=== PATIENT | male | born 1940 | race Caucasian/White ===

== ENCOUNTER 2017-05-20 06:12 | Day surgery (SDC) | payer MEDICARE, SELFPAY ==
[2017-05-20] VITALS (12 sets, daily range): BP systolic 153–203; BP diastolic 82–110; PULSE 75–97; RESP 16; TEMP 36.4–36.7; O2SAT 92–100; BMI 23.6
--- NOTE | 2017-05-20 | HYD_PTH ---
PATIENT: SHAISTA CLOUD LOC: [facility] [place] U#:[id number] AGE/SX: 76/M ROOM: RE05/20/[address]: Dr. Grey Gonsalez MD : [id number] BED: DIS: 05/20/2017 SPEC #: [id number] RECD: 05/20/17 14:32 STATUS: AMINTA REWan #: [id number] JAMES: 05/20/17 00:[address]: Grey Gonsalez DEPT: SURGICAL PATHOLOGY RECD BY: Santosh Rosenthal ENTERED: 05/20/17 14:32 SP TYPE: HYDROCELE OTHR DR: Dr. Butch Banegas MD Tissues: HYDROCELE Procedures: Surgery Specimen Level IV HEADER OPERATION: Left hydrocelectomy PRE-OP DIAGNOSIS: Left hydrocele TISSUE SUBMITTED: Left hydrocele sac MICROSCOPIC DIAGNOSIS Left hydrocele sac: Fragment of fibroconnective tissue, fibrovascular tissue and skeletal muscle tissue with numerous sperms and portion of benign epithelial cyst, favor spermatocele.. See comment. SJ:bogdan 05/23/17 COMMENT This case is discussed with Dr. Gonsalez on 05/24/13. Case has been reviewed in consultation with Dr. Mcpherson who concurs with the above diagnosis. IDC:[email or web address] MICROSCOPIC DESCRIPTION Slides are reviewed. GROSS DESCRIPTION Received in fixative is one container labeled with the patient's name and designated hydrocele sac. The specimen consists of two irregular fragments of pink-du soft tissue measuring in aggregate 5.5 x 2 x 0.7 cm. Serial sections do not reveal mass lesions. The specimen is sectioned and totally submitted in two cassettes. / HITESH:bogdan 05/20/17 TC:5 CPT: 65443
[2017-05-20 07:06] LABS: Bedside Glucose 130 mg/dL (70-110)
[2017-05-20] MEDS: Cefazolin 2 GM in 0.9% Normal Saline 100 ML IV (08:19)
--- NOTE | 2017-05-20 08:28 | PCM.DC.URO ---
Discharge Diet: Light diet - advance as tolerated Discharge Activity: Return to Normal Activity Call your doctor if your incision/area has: Continuous Slow Oozing, Sudden Increased Bleeding, Increased Pain/ Swelling, Increased Redness, Foul Smelling Discharge, Swelling at the incision site Call your doctor if you observe: Fever of 101 or Higher Suture Line Care: Avoid Pulling/Pushing, Avoid Pinching/Bending Instructions: Hydrocele Surgery (Hydrocelectomy) Allergies/Adverse Reactions: Allergies meloxicam [From Mobic] Allergy (Intermediate, Verified 03/03/17 16:09) itching pravastatin [From Pravachol] Adverse Reaction (Mild, Verified 03/03/17 16:09) myalgia cholestyramine Adverse Reaction (Verified 03/03/17 16:09) hypoglycemia Medications to take at Discharge hydrochlorothiazide 25 mg tablet 25 mg PO QDAY 03/03/17 losartan 100 mg tablet 100 mg PO QDAY 03/03/17 metformin 500 mg tablet 500 mg PO BID 03/03/17 multivitamin,hj-ybbf-keskgyez tablet 1 tab PO QDAY 03/03/17 tramadol 50 mg tablet 50 mg PO Q6H PRN 03/03/17 Insulin Glargine [Lantus (BKC)] 28 units SC QHS 05/13/17 Liraglutide [Victoza] 1.2 mg SQ DINNER 05/13/17 Cephalexin [Keflex] 500 mg PO TID #30 cap 05/20/17 Hydrocodone/Acetaminophen [[place] 5-325 Tablet] 1 ea PO Q4H PRN PRN 5 Days #14 tab 05/20/17 The following prescriptions were given: Hydrocodone/Acetaminophen [[place] 5-325 Tablet] 1 ea PO Q4H PRN PRN 5 Days #14 tab PRN Reason: Pain Cephalexin [Keflex] 500 mg PO TID #30 cap Primary Care Physician: Butch Banegas MD [Primary Care Provider] - Please Follow Up With: Grey Gonsalez MD When: Appt: May 26 at 8:30 am.
[2017-05-20] MEDS: Bupivacaine Mpf 0.5% 30 ML VIAL (08:36)
--- NOTE | 2017-05-20 09:01 | PCM.OPRPT ---
Report of Operation Date of Procedure: 05/20/17 Pre-Operative Diagnosis: Left hydrocele Post-Operative Diagnosis: Same Surgery/Procedure Performed:: Left hydrocelectomy Description of Surgical Findings:: 76-year-old male presents to the operating room for hydrocelectomy has a symptomatic large hydrocele on the left side. Patient taken back to the operating room at the smooth induction of anesthesia he was placed supine on the table the scrotum was shaved prepped and draped in usual sterile fashion I then infiltrated the scrotal skin with Marcaine and made an incision across the scrotum on the left side over the large hydrocele. Dissected through the skin subcuticular dartos layer until I reached the hydrocele sac and the hydrocele sac was then delivered from the scrotum dissected free from the scrotum used electrocautery. I then opened up the sac a lot of fluid was drained I then excised the hydrocele edges to the cord I then ran the suture along the edge of the hydrocele sac to control for bleeding on the left side and the right side once this was completed then I put the testicle back into the scrotum made a small incision up in the inguinal canal tunneled a drain, round NEENA drain 15. Left the drain in place I then closed the dartos layer with running chromic stitch and then closed the skin layer running 4-0 Monocryl fluffs and scrotal support was placed patient anesthetic reversed plan to see him next week to remove the drain should end the dictation Type of Anesthesia:: General Drains: NEENA - Admit VTE Documentation VTE Present on Admission: No VTE Mechan Device Prophylaxis: SCD's VTE Pharm Prophylaxis ordered?: No Reason prophylaxis not ordered:: Treatment Not Indicated
[2017-05-20] MEDS: HYDROcodone Bitartrate/Apap 5/325 Tablet PO (11:48)
== END 2017-05-20 12:22 | disposition home or self-care (01) ==
LOC: SDC 06:14 → AC 06:15
PROVIDERS: Family Provider Family Medicine; PCP Family Medicine; Visit Provider Urology
PROC: (CPT 55040; principal; 2017-05-20 08:20)
DX: N43.0 Encysted hydrocele (principal); N43.40 Spermatocele of epididymis, unspecified; R35.1 Nocturia; E11.9 Type 2 diabetes mellitus without complications; I10 Essential (primary) hypertension; Z87.442 Personal history of urinary calculi; Z79.4 Long term (current) use of insulin; Z79.891 Long term (current) use of opiate analgesic; Z79.899 Other long term (current) drug therapy
CPT/HCPCS: 55040; 82962; 88302; 88305; J3010; J7120; A4216; J2405

== ENCOUNTER 2020-04-11 13:45 | Outpatient (RCR) | payer MEDICARE, SELFPAY ==
[2017-05-20 06:50] VITALS: BMI 23.6
== END 2020-04-11 23:59 ==
LOC: IMMUN 13:45
PROVIDERS: PCP Family Medicine; Visit Provider Family Medicine
DX: Z23 Encounter for immunization (principal)
CPT/HCPCS: 0011A; 0012A; 91301

== ENCOUNTER 2020-12-31 07:13 | Inpatient (IN) | payer MEDICARE, SELFPAY ==
[2020-12-31] VITALS (17 sets, daily range): BP systolic 152–208; BP diastolic 78–100; PULSE 72–98; RESP 14–20; TEMP 36.4–37.1; O2SAT 93–98; BMI 25.4; BMI 24.8
--- NOTE | 2020-12-31 07:22 | EKG12_ITS ---
Test Reason : STROKE ALERT Blood Pressure : / mmHG Vent. Rate : 086 BPM Atrial Rate : 086 BPM P-R Int : 156 ms QRS Dur : 092 ms QT Int : 396 ms P-R-T Axes : 041 020 025 degrees QTc Int : 473 ms Normal sinus rhythm Normal ECG Confirmed by ADÁN STRONG, MAKENNA ([id number]), editor index AP NUNEZ ([id number]) on 01/01/2021 1:56:27 P M Referred By: Confirmed By:JOSHUA MCCAIN MD
--- NOTE | 2020-12-31 07:22 | CT_ITS ---
STUDY: CT HEAD STROKE PROTOCOL W/O CONTRAST INJECTION REASON FOR EXAM: Male, 80 years old. Neuro deficit, acute, stroke suspected RADIATION DOSAGE (If Supplied By Facility): CTDIvol = ( ) mGy, DLP = ( ) mGycm TECHNIQUE: Transaxial CT imaging of the brain was performed without administration of intravenous contrast material. Individualized dose optimization techniques were used for this CT. COMPARISON: No relevant priors. FINDINGS: Normal soft tissue structures. Normal calvarium. There is mild cerebral atrophy with widening of the extra-axial spaces and ventricular dilatation. There are areas of decreased attenuation within the white matter tracts of the supratentorial brain, consistent with microvascular disease changes. Normal basal ganglia and thalami. 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 Normal cerebellum. There is no intracranial hemorrhage. There are no findings of an acute ischemic infarction. Normal visualized paranasal sinuses. ASPECT score: 10 CT/STROKE Brain/Head without Cont IMPRESSION: Chronic involutional changes of the brain. N.B. : The above Results were Read Back by Indio Cosby MD to Dr. Angel Claros MD, and understanding confirmed on 12/31/2020 07:34:58 (ET). Electronically Signed: Indio Cosby MD at 7:37 EDT Tel , Service support ,
--- NOTE | 2020-12-31 07:23 | CT_ITS ---
STUDY: CTA HEAD AND NECK WITH CONTRAST REASON FOR EXAM: Male, 80 years old. Neuro deficit, acute, stroke suspected RADIATION DOSAGE (If Supplied By Facility): CTDIvol = ( ) mGy, DLP = ( ) mGycm TECHNIQUE: CT angiography was performed with a multi-detector CT scanner. Data acquisition was obtained from the skull base through the vertex following intravenous administration of IV 100mL Isovue-370. MIP images were reconstructed from the axial data set. Post-processing of the angiographic images was performed, with multiplanar reformation and 3D reconstruction. Individualized dose optimization techniques were used for this CT. COMPARISON: No relevant priors. FINDINGS: Normal bilateral petrous carotid arteries. Mild narrowing of the right cavernous carotid due to calcified atherosclerotic plaque. The left cavernous carotid artery demonstrate mild plaque without significant narrowing. Normal right A1 segments of the anterior cerebral artery. Normal left A1 segments of the anterior cerebral artery. Normal bilateral A2 segments of the anterior cerebral arteries. Mild narrowing of the right M1 segment and patent distally. Moderate short segment narrowing of the left M1 segment series 2 image 421 and patent distally. Focal short segment occlusion of the distal right vertebral artery. Normal basilar artery with a normal basilar bifurcation. Normal bilateral P1, P2 and visualized right P3 segments of the posterior cerebral arteries. Mild areas of narrowing the left P3 segment. There is no demonstrated aneurysm of the [place]. There is no demonstrated abnormality of the visualized brain. AORTIC ARCH: Normal visualized aortic arch. Normal origins of the brachiocephalic, left common carotid. Mild narrowing of the takeoff of the left subclavian artery. RIGHT CAROTID ARTERIES: Normal right common carotid artery (CCA). There is mild atherosclerotic plaque formation with mild narrowing of the right carotid bulb. Normal origin of the right internal carotid (ICA) artery without a hemodynamically significant stenosis. Normal visualized cervical portion of the right internal carotid artery. Normal origin of the right external carotid artery (ECA). LEFT CAROTID ARTERIES: Normal left common carotid artery (CCA). There is mild atherosclerotic plaque formation with mild narrowing of the left carotid bulb. Normal origin of the left internal carotid (ICA) artery without a hemodynamically significant stenosis. Normal visualized cervical portion of the left internal carotid artery. Normal origin of the left external carotid artery (ECA). VERTEBRAL ARTERIES: Normal proximal vertebral arteries. Focal short segment occlusion of the distal right vertebral artery within the intradural portion. There is scattered atherosclerotic plaque involving the distal left vertebral artery with mild luminal narrowing which remains patent. 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 Basilar artery is patent as well as the posterior circulation. Focal moderate narrowing of the left M1 segment. Bilateral carotid bulb calcification with mild narrowing bilaterally. N.B. : The above Results were Read Back by Indio Cosby MD to Dr. Angel Claros MD, and understanding confirmed on 12/31/2020 07:50:16 (ET). Electronically Signed: Indio Cosby MD at 8:08 EDT Tel , Service support ,
--- NOTE | 2020-12-31 07:24 | EDS_ITS ---
HPI History of Present Illness Chief Complaint: Neuro S/Sx Narrative Narrative: Patient presented to the emergency department at 0713, he went to bed about 930 last night, woke up at about 330 and noticed that he could not move his left arm and left leg very well. His brought him into the ED this morning. Stroke team was called soon as I found out about the patient. He has no headache vision changes or confusion. No prior history of stroke, he is not on anticoagulation or antiplatelet medication. [facility] Medical History (Updated 12/31/20 @ 07:[address] Angel Claros MD) Diabetes insipidus HTN (hypertension) Hydrocele in adult Recurrent inguinal hernia of right side without obstruction or gangrene Home Medications hydrochlorothiazide 25 mg tablet 25 mg PO QDAY 03/03/17 [History Last Taken Unknown] losartan 100 mg tablet 100 mg PO QDAY 03/03/17 [History Last Taken 05/20/17 05:00] metformin 500 mg tablet 500 mg PO BID 03/03/17 [History Last Taken Unknown] multivitamin,bj-rfwi-gzhnaynt 1 tab PO QDAY 03/03/17 [History Last Taken Unknown] tramadol 50 mg tablet 50 mg PO Q6H PRN 03/03/17 [History Last Taken Unknown] insulin glargine [Lantus (BKC)] 28 units SUBCUT QHS 05/13/17 [History Last Taken Unknown] liraglutide [Victoza] 1.2 mg SQ DINNER 05/13/17 [History Last Taken Unknown] Allergy/AdvReac Type Severity Reaction Status Date / Time meloxicam [From Mobic] Allergy Intermediate itching Verified 12/31/20 07:13 pravastatin [From Pravachol] AdvReac Mild myalgia Verified 12/31/20 07:13 cholestyramine AdvReac hypoglycemi Verified 12/31/20 07:13 a Family History (Updated 03/03/17 @ 16:07 by Ruma Maldonado) Mother Hypertension Cancer Father Heart disease Diabetes Surgical History S/P inguinal hernia repair S/P lumbar laminectomy Social History (Updated 03/03/17 @ 16:[address] Jonathan Davis MD) Smoking Status: Never smoker alcohol intake: current alcohol intake frequency: 0-2 drinks per day ROS ROS ED ROS Narrative Past medical history: Reviewed, includes hypertension, diabetes, no prior stroke or WI. Medications: Reviewed Social history: Noncontributory Review of systems: All systems negative except as indicated General: No fever Eyes: No visual changes ENT: No upper airway congestion, normal voice Neck: No neck pain Cardiovascular: No chest pain Respiratory: No shortness of breath or cough Gastrointestinal: No abdominal pain, nausea vomiting or diarrhea Genitourinary: No dysuria Musculoskeletal: Denies myalgias no difficulty with ambulation Skin: No rash Neurological: No memory loss, no confusion. Left-sided weakness as in HPI Psych: No recent behavioral changes Hematologic: No easy bleeding or easy bruising EXAM Physical Exam Narrative Exam Narrative: Physical exam General: Patient is comfortable in the cot. Head: Normocephalic, Atraumatic Eyes: Conjunctiva not pale ENT: Moist mucous membranes Neck: Supple, Nontender, No lymphadenopathy Cardiovascular: Regular rate, Regular rhythm Respiratory: No distress, CTA bilaterally Abdomen: Soft, Nontender, Nondistended Back: Nontender, Normal Inspection. Negative for: CVA tenderness Extremities: Nontender, No edema Skin: Normal color, No rash Neurological: Alert, he is oriented x3. He has slight left arm drift, some sensory deficits, and slight blunting of the left nasolabial fold. See NIH stroke scale below. Psychological: Normal affect Const Vital Signs: 12/31/20 07:14 12/31/20 07:17 12/31/20 07:24 Temperature 98.3 F Temperature Source Temporal Pulse Rate 96 97 Respiratory Rate 16 16 Blood Pressure 208/86 H 185/79 H Blood Pressure Mean 126 114 Pulse Ox 94 93 93 Oxygen Delivery Method Room Air Room Air Room Air 12/31/20 07:31 12/31/20 07:37 Temperature Temperature Source Pulse Rate 89 98 Respiratory Rate 18 20 H Blood Pressure 185/79 H 185/79 H Blood Pressure Mean 114 114 Pulse Ox 94 96 Oxygen Delivery Method Room Air Room Air STROKE Vital Signs/Narrative: Vital Signs Temp Pulse Resp BP Pulse Ox 12/31/20 07:37 98 20 H 185/79 H 96 12/31/20 07:31 89 18 185/79 H 94 12/31/20 07:24 93 12/31/20 07:17 97 16 185/79 H 93 12/31/20 07:14 98.3 F 96 16 208/86 H 94 NIHSS Initial: 1a Level of Consciousness: 0 1b LOC Questions (Score 2 if aphasic/stupor): 0 1c LOC Commands (Only score 1st attempt): 0 2 Best Gaze (If aphasic, use reflexive mvmts.): 0 3 Visual: 0 4 Facial Palsy: 1 5 Motor Arm Right (UN = amputation/fusion): 0 5 Motor Arm Left: 1 6 Motor Leg Right: 0 6 Motor Leg Left: 0 7 Limb ataxia (Only + if out of proportion): 0 8 Sensory (Aphasia/stupor=0 or 1, coma=2): 1 9 Best Language: 0 10 Dysarthria (mute, coma=2, intubated=UN): 0 11 Extinction and Inattention (only scored if +): 0 Total Score: 3 MDM MDM MDM Narrative Medical decision making narrative: This is a wake-up stroke, his deficits are quite minor at this time, he does not meet criteria for TPA due to onset of more than 4.5 hours. Patient will be admitted to the hospital for stroke work-up he will need antiplatelet therapy since he is not on aspirin or Plavix. Lab Data Labs: Laboratory Results - last 24 hr 12/31/20 12/31/20 12/31/20 07:16 07:20 07:20 WBC 9.1 RBC 4.47 L Hgb 13.5 Hct 40.0 MCV 89.5 MCH 30.2 MCHC 33.8 RDW Std Deviation 44.9 H RDW Coeff of Cait 13.7 Plt Count 336 MPV 10.2 Immature Gran % (Auto) 0.400 Neut % (Auto) 62.4 Lymph % (Auto) 22.6 [place] % (Auto) 11.5 H Eos % (Auto) 2.3 Baso % (Auto) 0.8 Absolute Neuts (auto) 5.7 Absolute Lymphs (auto) 2.06 Nucleated RBC % 0 PT 12.0 INR 0.9 APTT 29.5 Sodium Potassium Chloride Carbon Dioxide Anion Gap BUN Creatinine Estim Creat Clear Calc Est GFR (MDRD) Af Amer Est GFR (MDRD) Non-Af BUN/Creatinine Ratio Glucose Calcium Troponin I High Sens POC Glucose 153 H 12/31/20 07:20 WBC RBC Hgb Hct MCV MCH MCHC RDW Std Deviation RDW Coeff of Cait Plt Count MPV Immature Gran % (Auto) Neut % (Auto) Lymph % (Auto) [place] % (Auto) Eos % (Auto) Baso % (Auto) Absolute Neuts (auto) Absolute Lymphs (auto) Nucleated RBC % PT INR APTT Sodium 138 Potassium 3.5 Chloride 102 Carbon Dioxide 30.0 Anion Gap 6 BUN 25 H Creatinine 1.42 H Estim Creat Clear Calc 44.78 Est GFR (MDRD) Af Amer 62 Est GFR (MDRD) Non-Af 51 L BUN/Creatinine Ratio 17.6 Glucose 153 H Calcium 9.6 Troponin I High Sens 11 POC Glucose Radiography Diagnostic Testing: Clinical Impression(s) from Imaging Studies Brain CT 12/31/20 07:22 IMPRESSION: Chronic involutional changes of the brain. N.B. : The above Results were Read Back by Indio Cosby MD to Dr. Angel Claros MD, and understanding confirmed on 12/31/2020 07:34:58 (ET). Electronically Signed: Indio Cosby MD at 7:37 EDT Tel , Service support , ADDENDUM: 12/31/2044 IMPRESSION: Chronic involutional changes of the brain. N.B. : The above Results were Read Back by Indio Cosby MD to Dr. Angel Claros MD, and understanding confirmed on 12/31/2020 07:34:58 (ET). Electronically Signed: Indio Cosby MD at 7:37 EDT Tel , Service support , EKG Initial EKG: Comments: Sinus rhythm with a rate of 86. Normal GA and QTc intervals. No ischemic changes Interpreted by emergency doctor. Critical Care Time Critical Care Time: Yes Critical care time (excluding procedures): 30-74 minutes and - (Critical care time of 30 minutes. 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
[2020-12-31 07:30] LABS: Bedside Glucose 153 mg/dL (70-110)
[2020-12-31 07:32] LABS: Absolute Lymphocyte Count 2.06 X10^3/uL (0.83-4.51); Absolute Neutrophil Count 5.7 X10^3/uL (2.0-7.7); Basophil# 0.07 X10^3/uL; Basophil% 0.8 % (0-1); Eosinophil# 0.21 X10^3/uL; Eosinophils% 2.3 % (0-5); Hemoglobin 13.5 g/dL (13.0-16.5); Lymphocyte # 2.06 X10^3/ul (0.83-4.51); Lymphocyte % 22.6 % (19-41); Mean Corp Hgb Conc 33.8 g/dL (32-36); Mean Corpuscular Hgb 30.2 pg (27.0-32.0); Mean Corpuscular Volume 89.5 fL (80-94); Mean Platelet Vol. 10.2 fl (6.2-12.0); Monocyte# 1.05 X10^3/uL; Monocyte% 11.5 % (0-10); NRBC Flagged by Analyzer 0 % (0-5); Neutrophil % 62.4 % (47-70); Platelet Count 336 K/mm3 (150-450); RBC Distribution Width CV 13.7 % (11.6-14.6); RBC Distribution Width SD 44.9 fl (35.1-43.9); Red Blood Count 4.47 M/mm3 (4.6-6.2); White Blood Count 9.1 K/mm3 (4.4-11.0)
[2020-12-31 07:49] LABS: International Normalized Ratio 0.9
[2020-12-31 07:50] LABS: Partial Thromboplast Time 29.5 Seconds (24.1-36.2)
[2020-12-31 07:52] LABS: Anion Gap 6 (5-15); BUN 25 mg/dL (7-18); BUN/Creat Ratio 17.6 RATIO (10-20); Calcium,Total 9.6 mg/dL (8.5-10.1); Chloride 102 mmol/L (98-107); Creatinine, Serum 1.42 mg/dL (0.70-1.30); EST Glomerular Filtration Rate 51 mL/min (>60); Est Glom Filt Rate - Afr Amer 62 mL/min (>60); Estimated Creatinine Clearance 44.78 ml/min; Glucose 153 mg/dL (74-106); Potassium 3.5 mmol/L (3.5-5.1); Sodium Level 138 mmol/L (136-145); Troponin-I HS 11 pg/mL (3.0-78.0)
--- NOTE | 2020-12-31 08:13 | RAD_ITS ---
HISTORY: Neuro deficit, acute, stroke suspected. TECHNIQUE: XR Chest 1 View. # of images incl. paperwork: 1. COMPARISON: None. FINDINGS: CARDIOMEDIASTINAL STRUCTURES: Cardiac silhouette not enlarged. Mediastinal contour unremarkable with calcification of the aorta. LUNGS: Mild linear bibasilar opacities with elevation of the right hemidiaphragm. PLEURA: No pleural effusion or pneumothorax. OSSEOUS STRUCTURES: Degenerative change. RAD/Chest 1 View IMPRESSION: Very mild bibasilar atelectasis or scarring. at 0834 Reported and signed by: Sierra Adkins MD Electronically Signed: Sierra Adkins MD at 8:33 EDT Tel , Service support ,
--- NOTE | 2020-12-31 08:24 | HP.PCM.HOS_ITS ---
HPI - General General Date of Admission: 12/31/20 HPI Narrative SHAISTA CLOUD, is a 80 M witha H as outlined below who presents with a complaint of inability to move his left arm or left leg very well. His last known well was ~ 21:30 last night when he went to bed. He woke up this morning with the above symptoms. NIH was 3 on presentation in the ED. He woke up a ~ 3am today with these symptoms, but went back to sleep. He woke up again this morning with the same symptoms so he was brought in to the ED. He denied any slurred speech, headache, numbness or tingling. Per patient and his , he did have some tingling of his LUE during day before presentation, but he didnt think much of it. Review of systems was otherwise negative. On admission in the ED, vitals were BP of 175/84, NE of 77, RR of 14 and oxygen sats of 94% on room air. CBC and BMP were unremarkable, apart from Cr of 1.42, with unknown baseline. CT of the brain showed chronic involutional changes, with a right pontine round hypodensity measuring 6mm most consistent with old infarct, and CTA of the head and neck showed normal proximal vertebral arteries and a focal short segment occlusion of the distal right vertebral artery within the intradural portion with scattered atherosclerotic plaque involving the distal left vertebral artery with mild luminal narrowing which remains patent. He is being admitted to be managed for probable CVA. Telestroke consult was called. [facility] Medical History Diabetes insipidus HTN (hypertension) Hydrocele in adult Recurrent inguinal hernia of right side without obstruction or gangrene Home Medications metformin 500 mg tablet 1,000 mg PO BID 03/03/17 [History Last Taken 12/30/20] multivitamin,xo-eirb-jgbxkwgr 1 tab PO QDAY 03/03/17 [History Last Taken 12/30/20] amlodipine 10 mg PO DAILY 12/31/20 [History Last Taken 12/30/20] chlorthalidone 25 mg PO DAILY 12/31/20 [History Last Taken 12/30/20] insulin glargine [Basaglar KwikPen U-100 Insulin] 30 unit SUBCUT DAILY 12/31/20 [History Last Taken 12/31/20] valsartan 320 mg PO QHS 12/31/20 [History Last Taken 12/30/20] Allergy/AdvReac Type Severity Reaction Status Date / Time meloxicam [From Mobic] Allergy Intermediate itching Verified 12/31/20 07:13 pravastatin [From Pravachol] AdvReac Mild myalgia Verified 12/31/20 07:13 cholestyramine AdvReac hypoglycemi Verified 12/31/20 07:13 a Family History (Updated 03/03/17 @ 16:07 by Ruma Maldonado) Mother Hypertension Cancer Father Heart disease Diabetes Surgical History S/P inguinal hernia repair S/P lumbar laminectomy Social History (Updated 03/03/17 @ 16:[address] Jonathan Davis MD) Smoking Status: Never smoker alcohol intake: current alcohol intake frequency: 0-2 drinks per day ROS Constitutional Constitutional: Denies anorexia, change in weight, chills, fever(s), malaise or weakness Eyes Eyes: Denies change in vision ENT HEENT: Denies abnormal hearing, headache(s), nasal congestion or nasal discharge Cardiovascular Cardiovascular: Denies chest pain, dyspnea on exertion, edema, lightheadedness, orthopnea, palpitations, paroxysmal nocturnal dyspnea, rapid heart rate or syncope Respiratory/Chest Respiratory/Chest: Denies cough, dyspnea, productive cough, shortness of breath at rest or shortness of breath with exertion Gastrointestinal Gastrointestinal: Denies abdominal pain, constipation, dyspepsia, nausea or vomiting Genitourinary Genitourinary: Denies burning urination or dysuria Musculoskeletal Musculoskeletal: Denies arthralgias or joint pain Neurologic Neurologic: Denies confusion, dizziness, numbness, seizures or syncope Psychiatric Psychiatric: Denies anxiety Endocrine Endocrinology: Denies change in body appearance Hematologic/Lymphatic Hematologic/Lymphatic: Denies anemia Vital Signs Vital Signs Vital Signs: 12/31/20 07:14 12/31/20 07:17 12/31/20 07:24 Temperature 98.3 F Temperature Source Temporal Pulse Rate 96 97 Respiratory Rate 16 16 Blood Pressure 208/86 H 185/79 H Blood Pressure Mean 126 114 Pulse Ox 94 93 93 Oxygen Delivery Method Room Air Room Air Room Air 12/31/20 07:31 12/31/20 07:37 12/31/20 07:52 Temperature Temperature Source Pulse Rate 89 98 91 Respiratory Rate 18 20 H 16 Blood Pressure 185/79 H 185/79 H 186/86 H Blood Pressure Mean 114 114 119 Pulse Ox 94 96 93 Oxygen Delivery Method Room Air Room Air Room Air Weight Weight: 188 lb 0.869 oz Body Mass Index (BMI) 25.4 Physical Exam Const alert and oriented x3 General Appearance: cooperative HEENT normocephalic, hearing grossly normal bilaterally, moist oral mucous membranes and oropharynx normal Eyes PERRL and EOMs intact bilaterally Neck no lymphadenopathy Resp normal respiratory effort and clear to auscultation bilaterally Cardio regular rate, regular rhythm, S1 normal heart sound, S2 normal heart sound and no murmurs GI normal to inspection, nondistended, normoactive bowel sounds, soft to palpation, non-tender and non-distended Extremity normal to inspection Peripheral Pulses: Yes pulses 2+ throughout Skin no rashes or lesions noted Neuro CN's II-XII intact bilaterally Neuro Narrative: power in LUE is mildly reduced at 4/5; power in rest of extremities are 5/5. Normal sensation in all extremities. Sensorium / Orientation: awake and alert Psych affect normal Results Lab / Micro Data Result Diagrams: 12/31/20 07:20 12/31/20 07:20 Labs: Laboratory Results - last 24 hr 12/31/20 07:16: POC Glucose 153 H 12/31/20 07:20: WBC 9.1, RBC 4.47 L, Hgb 13.5, Hct 40.0, MCV 89.5, MCH 30.2, MCHC 33.8, RDW Std Deviation 44.9 H, RDW Coeff of Cait 13.7, Plt Count 336, MPV 10.2, Immature Gran % (Auto) 0.400, Neut % (Auto) 62.4, Lymph % (Auto) 22.6, [place] % (Auto) 11.5 H, Eos % (Auto) 2.3, Baso % (Auto) 0.8, Absolute Neuts (auto) 5.7, Absolute Lymphs (auto) 2.06, Nucleated RBC % 0 12/31/20 07:20: PT 12.0, INR 0.9, APTT 29.5 12/31/20 07:20: Sodium 138, Potassium 3.5, Chloride 102, Carbon Dioxide 30.0, Anion Gap 6, BUN 25 H, Creatinine 1.42 H, Estim Creat Clear Calc 44.78, Est GFR (MDRD) Af Amer 62, Est GFR (MDRD) Non-Af 51 L, BUN/Creatinine Ratio 17.6, Glucose 153 H, Calcium 9.6, Troponin I High Sens [address] 12/31/20 07:22 IMPRESSION: Chronic involutional changes of the brain. N.B. : The above Results were Read Back by Indio Cosby MD to Dr. Angel Claros MD, and understanding confirmed on 12/31/2020 07:34:58 (ET). Electronically Signed: Indio Cosby MD at 7:37 EDT Tel , Service support , ADDENDUM: 12/31/20 0744 IMPRESSION: Chronic involutional changes of the brain. N.B. : The above Results were Read Back by Indio Cosby MD to Dr. Angel Claros MD, and understanding confirmed on 12/31/2020 07:34:58 (ET). Electronically Signed: Indio Cosby MD at 7:37 EDT Tel , Service support , Head/Neck CTA 12/31/20 07:23 IMPRESSION: Focal short segment occlusion of the distal intradural portion of the right vertebral artery. Basilar artery is patent as well as the posterior circulation. Focal moderate narrowing of the left M1 segment. Bilateral carotid bulb calcification with mild narrowing bilaterally. N.B. : The above Results were Read Back by Indio Cosby MD to Dr. Angel Claros MD, and understanding confirmed on 12/31/2020 07:50:16 (ET). 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 Basilar artery is patent as well as the posterior circulation. Focal moderate narrowing of the left M1 segment. Bilateral carotid bulb calcification with mild narrowing bilaterally. N.B. : The above Results were Read Back by Indio Cosby MD to Dr. Angel Claros MD, and understanding confirmed on 12/31/2020 07:50:16 (ET). Electronically Signed: Indio Cosby MD at 8:08 EDT Tel , Service support , Assessment & Plan Assessment/Plan (1) Acute stroke due to ischemia: PLAN: #Probable acute CVA * admit to PCU * out of window for tPA administration * give aspirin and plavix * telestroke neurology consulted; recommends dual antiplatelet therapy for 60 days. * check lipid panel and A1C * CT of the brain was negative for any evidence of stroke, and showed a right pontine round hypodensity measuring 6mm consistent with old infarct * CTA head and neck showed focal shrot segment occlusion of the distal intradural portion of the right vertebral artery, with basilar artery patent and patent posterior circulation, with focal moderate narrowing of the left M1 segment, and bilaeral carotid bulb calcification with mild narrowing bilaterally. * PT/OT consult * fall precautions * for MRI of the brain. * 2D echo showed EF of 65%, and moderate mitral annular calcifications and bubble study negative for right to left interatrial shunt, and stage 1 diastolic dysfunction. * allow for permissive hypertension, so BP meds on hold * #Hypertension; BP meds on hold to allow for permissive hypertension #Type 2 diabetes mellitus * metformin on hold. * on lantus 28 units. * ISS. Accuchecks ACHS. * DVT prophylaxis: SCDs Code status: full code * Patient and counseled extensively about different types of CODE STATUS including full code, DNR CCA and DNR CCA. Patient elects to be full code. * Total [id number]-[id number] time 16 minutes. Charges/Coding Visit Charges OBSV E&M: 07173 Initial observation care L3 Procedures Hospitalists Procedures: 37746 Advncd Care Plan 30 Min
--- NOTE | 2020-12-31 09:41 | PCS.PANDOC ---
PANDEMIC DOCUMENTATION INITIATED: Date: 10/27/2020 Time: 190
--- NOTE | 2020-12-31 09:59 | MRI_ITS ---
We are attempting to reach an attending provider to discuss findings. An addendum with communication details will be sent when the communication is complete. STUDY: MRI BRAIN WITHOUT CONTRAST REASON FOR EXAM: Male, 80 years old. cva, L upper extremity weakness TECHNIQUE: Standardized multiplanar fat and water weighted pulse sequences were obtained. COMPARISON: CT of the brain 12/31/2020 FINDINGS: Mild atrophy and periventricular white matter ischemic changes without mass effect or restricted diffusion. Vertebrobasilar documentation suggestive of systemic hypertension There is gliosis noted within the right basal ganglia and deep white matter tracts in the right frontal parietal region demonstrating restricted diffusion consistent with acute ischemic changes. Normal thalami. There is no extra-axial fluid accumulation. Old right pontine infarct Normal flow voids within the major intracranial circulation suggesting patency by spin echo criteria. Partial empty sella deformity likely of no significance. Normal, infundibular stalk, optic chiasm and hypothalamus. Normal tectal plate and pineal gland. Normal midbrain, and medulla. Normal cerebellum. Normal basal cisterns. Normal bilateral temporal bones. Normal bilateral internal auditory canals. Postsurgical changes of the orbits.. Normal visualized paranasal sinuses. Normal calvarium and skull base. Normal visualized soft tissue structures. Normal visualized upper cervical spine. MRI/Brain without Contrast IMPRESSION: Mild atrophy and periventricular white matter ischemic changes. 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
--- NOTE | 2020-12-31 10:02 | ECHOCS_ITS ---
Reason For Study: TIA/CVA Procedure This was a 2D Doppler, Color Flow transthoracic echocardiogram. The study was technically difficult. Contrast injection was performed. Bubble study performed. Exam performed portable in patient room. Left Ventricle Normal LV size. Mild concentric left ventricular hypertrophy. Sigmoid septum. Left ventricular systolic function is normal. The estimated ejection fraction is 65 %. Stage 1 diastolic dysfunction. No regional wall motion abnormalities noted. Right Ventricle Normal RV size. Normal systolic function. Atria Normal left atrium. Normal right atrium. Bubble contrast study negative for right to left interatrial shunt. Mitral Valve There is moderate mitral annular calcification. Tricuspid Valve Normal tricuspid valve. Mild (1+) tricuspid valve insufficiency. Pulmonary artery systolic pressure is 36 mmHg. Aortic Valve Trisinus/trileaflet aortic valve. Mild focal aortic valve calcification. Pulmonic Valve The pulmonic valve is not well visualized. Great Vessels Normal aortic root. The pulmonary artery is normal size. Normal inferior vena cava. Pericardium/Pleural No pericardial effusion. Medication Diluted definity 2ml given slow IV push to enhance endocardial definition. Performed a rapid injection of agitated mix of 9 cc saline and 1cc air to assess for atrial septal defect. MMode/2D Measurements & Calculations LVIDd: 4.1 cm IVSd: 1.6 cm Ao root diam: 3.4 cm LVIDs: 2.2 cm LVPWd: 1.2 cm LA dimension: 3.6 cm FS: 46.0 % LAV(MOD-bp): 53.1 ml LA A4 area: 17.3 cm2 RA A4 area: 14.4 cm2 LAV(MOD-bp) Indexed: 25.9 ml/m2 LAV(MOD-sp2): 57.6 ml LAV(MOD-sp4): 46.9 ml Time Measurements MV dec time: 0.42 sec Doppler Measurements & Calculations MV E max joce: 110.2 cm/sec Lat Peak E' Joce: 5.4 cm/sec Med Peak E' Joce: 4.3 cm/sec MV A max joce: 179.2 cm/sec E/E' lat: 20.3 E/E' med: 25.9 MV E/A: 0.61 MV V2 max: 177.2 cm/sec MV P1/2t max joce: 113.6 cm/sec Ao V2 max: 157.9 cm/sec MV max P.6 mmHg MV P1/2t: 124.1 msec Ao max P.0 mmHg MV V2 mean: 97.4 cm/sec MV dec slope: 268.2 cm/sec2 MV mean P.5 mmHg MV V2 VTI: 40.9 cm MVA(P1/2t): 1.8 cm2 LV V1 max: 126.6 cm/sec PA V2 max: 105.9 cm/sec TR max joce: 280.7 cm/sec LV V1 max P.4 mmHg TR max P.5 mmHg ECHO/Echo Complete W/ Contrast Interpretation Summary Normal LV size. Left ventricular systolic function is normal. The estimated ejection fraction is 65 %. There is moderate mitral annular calcification. Bubble contrast study negative for right to left interatrial shunt. Stage 1 diastolic dysfunction. Sigmoid septum. Contrast injection was performed. Ordering Physician: Jessica Meyer Referring Physician: Butch Banegas Performed By: Yaakov Hood RCS
[2020-12-31] MEDS: Clopidogrel Bisulfate 75 MG Tablet PO (10:37)
[2020-12-31 11:10] LABS: Troponin-I HS 12 pg/mL (3.0-78.0)
[2020-12-31 11:51] LABS: Bedside Glucose 146 mg/dL (70-110)
[2020-12-31 16:16] LABS: Bedside Glucose 101 mg/dL (70-110)
[2020-12-31 21:01] LABS: Bedside Glucose 143 mg/dL (70-110)
[2021-01-01] VITALS (10 sets, daily range): BP systolic 169–193; BP diastolic 75–124; PULSE 62–105; RESP 16–18; TEMP 36.3–36.9; O2SAT 93–97; BMI 24.8
[2021-01-01] MEDS: Enoxaparin 40 MG/0.4 ML Syringe SC (05:07)
[2021-01-01 06:08] LABS: Absolute Lymphocyte Count 2.35 X10^3/uL (0.83-4.51); Absolute Neutrophil Count 5.5 X10^3/uL (2.0-7.7); Basophil# 0.05 X10^3/uL; Basophil% 0.5 % (0-1); Eosinophil# 0.22 X10^3/uL; Eosinophils% 2.4 % (0-5); Hematocrit 40.1 % (40-54); Hemoglobin 13.6 g/dL (13.0-16.5); Lymphocyte # 2.35 X10^3/ul (0.83-4.51); Lymphocyte % 25.5 % (19-41); Mean Corp Hgb Conc 33.9 g/dL (32-36); Mean Corpuscular Hgb 30.4 pg (27.0-32.0); Mean Corpuscular Volume 89.5 fL (80-94); Mean Platelet Vol. 10.4 fl (6.2-12.0); Monocyte# 1.13 X10^3/uL; Monocyte% 12.3 % (0-10); NRBC Flagged by Analyzer 0 % (0-5); Neutrophil # 5.45 X10^3/uL (2.7-7.7); Neutrophil % 59.1 % (47-70); Platelet Count 312 K/mm3 (150-450); RBC Distribution Width CV 13.9 % (11.6-14.6); RBC Distribution Width SD 45.3 fl (35.1-43.9); Red Blood Count 4.48 M/mm3 (4.6-6.2); White Blood Count 9.2 K/mm3 (4.4-11.0)
[2021-01-01 06:50] LABS: Anion Gap 9 (5-15); BUN 20 mg/dL (7-18); BUN/Creat Ratio 16.4 RATIO (10-20); Calcium,Total 9.2 mg/dL (8.5-10.1); Chloride 100 mmol/L (98-107); Cholesterol 221 mg/dL (200); Creatinine, Serum 1.22 mg/dL (0.70-1.30); EST Glomerular Filtration Rate 61 mL/min (>60); Est Glom Filt Rate - Afr Amer 73 mL/min (>60); Estimated Creatinine Clearance 52.12 ml/min; Glucose 103 mg/dL (74-106); High Density Lipoprotein 36 mg/dL; Potassium 3.6 mmol/L (3.5-5.1); Sodium Level 140 mmol/L (136-145); Triglycerides 175 mg/dL; Very Low Density Lipoprotein 35 mg/dL (5-40)
[2021-01-01 06:51] LABS: Bedside Glucose 121 mg/dL (70-110)
[2021-01-01] MEDS: Clopidogrel Bisulfate 75 MG Tablet PO (08:46)
[2021-01-01] MEDS: Multivitamins,Ther W-Minerals Tablet 1 TABLET PO (08:46)
[2021-01-01] MEDS: Aspirin 81 MG TAB.CHEW PO (08:46)
--- NOTE | 2021-01-01 09:05 | TELEMED_ITS ---
[facility] Tele[facility] has confirmed receipt of a request for visit. This document confirms receipt of the order initiating the consult. To find the results of the consultation, please view the patient's reports for the scanned Telemed Consult.
--- NOTE | 2021-01-01 09:23 | CASEMGMT ---
SW completed a PHQ 9 with patient as he may have had a Stroke or TIA. He scored a 0 which indicates no depression. He denied any needs for counseling resources. Liza Romero HEALTH INFORMATION CLERK [facility]
[2021-01-01 09:43] LABS: Hemoglobin A1c 6.7 % (3.8-5.6)
[2021-01-01] MEDS: Insulin Lispro 100 UNIT/ML INSULN.PEN SC ×3 (11:56→21:24)
[2021-01-01] MEDS: Losartan Potassium 100 MG Tablet PO (11:58)
[2021-01-01] MEDS: amLODIPine 10 MG Tablet PO (11:58)
[2021-01-01] MEDS: Chlorthalidone 50 MG Tablet 25 MG PO (11:58)
--- NOTE | 2021-01-01 13:12 | DS.PCM_ITS ---
Providers Date of Admission: 12/31/20 Primary Care Physician: Dr. Butch Banegas MD Reason For Visit: PROBABLE CVA Diagnosis Discharge Diagnosis (1) Acute stroke due to ischemia: Status: Acute Code(s): I63.9 - Cerebral infarction, unspecified Medications at Discharge Home Medications metformin 500 mg tablet 1,000 mg PO BID 03/03/17 multivitamin,wu-nnse-emczigqk 1 tab PO QDAY 03/03/17 amlodipine 10 mg PO DAILY 12/31/20 chlorthalidone 25 mg PO DAILY 12/31/20 insulin glargine [Basaglar KwikPen U-100 Insulin] 30 unit SUBCUT DAILY 12/31/20 valsartan 320 mg PO QHS 12/31/20 Hospital Course Operations None Procedures 2-D Echocardiogram Summary of Care Provided Minutes Spent on Discharge: 40 Hospital Course: SHAISTA CLOUD, is a 80 M witha PMH as outlined below who presents with a complaint of inability to move his left arm or left leg very well. His last known well was ~ 21:30 the night before admission when he went to bed. He woke up this morning with the above symptoms. NIH was 3 on presentation in the ED. He woke up a ~ 3am today with these symptoms, but went back to sleep. He woke up again this morning with the same symptoms so he was brought in to the ED. He denied any slurred speech, headache, numbness or tingling. Per patient and his , he did have some tingling of his LUE during day before presentation, but he didnt think much of it. Review of systems was otherwise negative. On admission in the ED, vitals were BP of 175/84, FL of 77, RR of 14 and oxygen sats of 94% on room air. CBC and BMP were unremarkable, apart from Cr of 1.42, with unknown baseline. CT of the brain showed chronic involutional changes, with a right pontine round hypodensity measuring 6mm most consistent with old infarct, and CTA of the head and neck showed normal proximal vertebral arteries and a focal short segment occlusion of the distal right vertebral artery within the intradural portion with scattered atherosclerotic plaque involving the distal left vertebral artery with mild luminal narrowing which remains patent. He was admitted to be managed for probable CVA. Telestroke consult was called. He was started on aspirin and plavix as well as statin. He had an MRI of the brain which showed evidence of acute ischemic changes in the right basal ganglia, indicative of a stroke. 2D echo showed normal LV size adn mild concentric LV hypertrophy, with sigmoid septum and normal LV systolic function, and stage 1 diastolic dysfunction, as well as EF of 65%, with negative bubble study. [facility] neurology was consulted, and plan was for patient to be on aspirin and plavix for 21 days, then to continue with aspirin 81mg only. Patient said he couldnt take statins due to a history of myalgia whilst taking statins. He was therefore started on ezetimibe. He wasa reviewed by physical therapy. He remained stable and was discharged home on 01/01/2021. He is to follow up with his PCP and neurology. 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 HE was advised by neurology to abstain from driving for the next one month, and is to follow up with an assessment at [facility] to determine if he can still drive. Weight / BMI Weight Weight: 183 lb 3.266 oz Body Mass Index (BMI) 24.8 ABG / Lab / Microbiology Data Result Diagrams: 01/01/21 05:25 01/01/21 05:25 Laboratory: Laboratory Results - last 24 hr 12/31/20 16:13: POC Glucose 101 12/31/20 20:58: POC Glucose 143 H 01/01/21 05:25: WBC 9.2, RBC 4.48 L, Hgb 13.6, Hct 40.1, MCV 89.5, MCH 30.4, M CHC 33.9, RDW Std Deviation 45.3 H, RDW Coeff of Cait 13.9, Plt Count 312, MPV 10.4, Immature Gran % (Auto) 0.200, Neut % (Auto) 59.1, Lymph % (Auto) 25.5, [place] % (Auto) 12.3 H, Eos % (Auto) 2.4, Baso % (Auto) 0.5, Absolute Neuts (auto) 5.5, Absolute Lymphs (auto) 2.35, Nucleated RBC % 0 01/01/21 05:25: Sodium 140, Potassium 3.6, Chloride 100, Carbon Dioxide 31.0, Anion Gap 9, BUN 20 H, Creatinine 1.22, Estim Creat Clear Calc 52.12, Est GFR (MDRD) Af Amer 73, Est GFR (MDRD) Non-Af 61, BUN/Creatinine Ratio 16.4, Glucose 103, Calcium 9.2, Triglycerides 175, Cholesterol 221 H, LDL Cholesterol 150 H, VLDL Cholesterol 35, HDL Cholesterol 36 L 01/01/21 05:25: Hemoglobin A1c 6.7 H 01/01/21 06:46: POC Glucose 121 H Radiography Diagnostic Testing: Radiology Impression Brain MRI 12/31/20 09:59 IMPRESSION: Mild atrophy and periventricular white matter ischemic changes. 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 : The above Results were Read Back by Butch Cheema MD to Rn Solis Horowitz RN, and understanding confirmed on 12/31/2020 16:49:32 (ET). Electronically Signed: Butch Cheema MD at 16:36 EDT , Service support , Discharge Plan Admission Admit Date/Time: 12/31/20 08:31 Attending Provider: Jessica Meyer Primary Care Provider: Butch Banegas Discharge Orders/Prescriptions Prescriptions: No Action metformin 500 mg tablet 1,000 mg PO BID RF: 0 multivitamin,tw-uxew-odjbbzmn tablet tablet 1 tab PO QDAY RF: 0 amlodipine 5 mg tablet 10 mg PO DAILY RF: 0 valsartan 320 mg tablet 320 mg PO QHS RF: 0 Basaglar KwikPen U-100 Insulin 100 unit/mL (3 mL) insulin pen 30 unit SUBCUT DAILY RF: 0 chlorthalidone 25 mg tablet 25 mg PO DAILY RF: 0 Referrals / Follow Up: Butch Banegas MD [Primary Care Provider] - Disposition Discharge Orders: Discharge Patient (Routine); Ordered 01/01/21 Ordered By: Dr. Jessica Meyer
--- NOTE | 2021-01-01 13:31 | PN.HOSP_ITS ---
Subjective Subjective Patient seen and examined. He still complains of mild weakness in the LUE. MRI of the brain showed acute ischemic changes in the right basal ganglia and deep white matter tracts in the right frontal parietal region. Review of systems otherwise negative. Objective Data Objective Data Vital Signs: Vital Signs Temp Pulse Resp BP Pulse Ox 97.8 F 105 H 18 169/101 H 95 01/01/21 12:20 01/01/21 12:20 01/01/21 12:20 01/01/21 12:20 01/01/21 12:20 Oxygen Delivery Method Room Air Weight: 183 lb 3.266 oz Body Mass Index (BMI) 24.8 Intake & Output: Intake and Output for Last 24 Hours 12/30/20 12/31/20 01/01/21 23:59 23:59 23:59 Intake Total 720 / 720 240 / 240 Balance 720 / 720 240 / 240 Lab / Micro Data Result Diagrams: 01/01/21 05:25 01/01/21 05:25 Labs: Laboratory Results - last 24 hr 12/31/20 16:13: POC Glucose 101 12/31/20 20:58: POC Glucose 143 H 01/01/21 05:25: WBC 9.2, RBC 4.48 L, Hgb 13.6, Hct 40.1, MCV 89.5, MCH 30.4, MCH C 33.9, RDW Std Deviation 45.3 H, RDW Coeff of Cait 13.9, Plt Count 312, MPV 1 0.4, Immature Gran % (Auto) 0.200, Neut % (Auto) 59.1, Lymph % (Auto) 25.5, Kaufman % (Auto) 12.3 H, Eos % (Auto) 2.4, Baso % (Auto) 0.5, Absolute Neuts (auto) 5.5, Absolute Lymphs (auto) 2.35, Nucleated RBC % 0 01/01/21 05:25: Sodium 140, Potassium 3.6, Chloride 100, Carbon Dioxide 31.0, Anion Gap 9, BUN 20 H, Creatinine 1.22, Estim Creat Clear Calc 52.12, Est GFR (MDRD) Af Amer 73, Est GFR (MDRD) Non-Af 61, BUN/Creatinine Ratio 16.4, Glucose 103, Calcium 9.2, Triglycerides 175, Cholesterol 221 H, LDL Cholesterol 150 H, VLDL Cholesterol 35, HDL Cholesterol 36 L 01/01/21 05:25: Hemoglobin A1c 6.7 H 01/01/21 06:46: POC Glucose 121 H Radiography Diagnostic Testing: Radiology Impression Brain MRI 12/31/20 09:59 IMPRESSION: Mild atrophy and periventricular white matter ischemic changes. 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 : The above Results were Read Back by Butch Cheema MD to Mignon Horowitz RN, and understanding confirmed on 12/31/2020 16:49:32 (ET). Electronically Signed: Butch Cheema MD at 16:36 EDT , Service support , Physical Exam Const alert, oriented x3 and no apparent distress General Appearance: cooperative Exam Limitations: no limitations HEENT normocephalic, head/scalp atraumatic, hearing grossly normal bilaterally, moist oral mucous membranes and oropharynx normal Head and Scalp: normocephalic Eyes PERRL and EOMs intact bilaterally Neck no lymphadenopathy Resp normal respiratory effort and clear to auscultation bilaterally Cardio regular rate, regular rhythm, S1 normal heart sound, S2 normal heart sound and no murmurs GI normal to inspection, nondistended, normoactive bowel sounds, soft to palpation, non-tender and non-distended Extremity normal to inspection Peripheral Pulses: Yes pulses 2+ throughout Skin no rashes or lesions noted Neuro CN's II-XII intact bilaterally Neuro Narrative: power in LUE is mildly reduced at 4/5; power in rest of extremities are 5/5. Normal sensation in all extremities. 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 * MRI brain shwoed mild acue ischemic changes in the right basal ganglia and deep white matter tract in the right frontal parietal region. * PT/OT on board * fall precautions * 2D echo showed EF of 65%, and moderate mitral annular calcifications and bubble study negative for right to left interatrial shunt, and stage 1 diastolic dysfunction. * on aspirin and plavix for 21 days, then to continue with aspirin 21mg daily. start ezetimibe, as patient says he cannot take statins due to myalgia. * #Hypertension;BP elevated today. Will resume home BP meds. IV hydralazine prn. #Type 2 diabetes mellitus * metformin on hold. * on lantus 28 units. * ISS. Accuchecks ACHS. * DVT prophylaxis: SCDs Code status: full code Disposition: patient didn't do well with physical therapy today, and has been skilled for acute rehab. Awaiting placement Charges/Coding Visit Charges Inpatient E&M: 95748 Subs Hosp L2
--- NOTE | 2021-01-01 13:41 | CASEMGMT ---
Therapy said that patient would benefit from going to Inpatient Rehab as he is not doing well. ALBARO met with patient and his . Introduced self. SW confirmed they would like for patient to go to [facility] Inpatient Rehab. ALBARO explained we have to wait on insurance to approve him before he can go. SW told them it is possible that his insurance could deny the rehab unit and he would then have to consider a SNF for short term rehab. They would like [facility] TCU if insurance does not approve the rehab unit. SW let them know that patient will stay here until we hear from insurance. SW told them this could be a couple of days. SW will let them know as soon as SW hears something. ALBARO called Linda with Rehab/TCU and she can try and get insurance authorization. Should insurance deny the rehab unit she will try for approval for TCU. Plan: [facility] 4th floor Inpatient Rehab vs [facility] TCU. Liza Romero [employer]FF[employer]IC[employer]
[2021-01-01 16:06] LABS: Bedside Glucose 240 mg/dL (70-110)
[2021-01-01 16:15] LABS: Bedside Glucose 234 mg/dL (70-110)
[2021-01-01 21:31] LABS: Bedside Glucose 226 mg/dL (70-110)
[2021-01-02] VITALS (9 sets, daily range): BP systolic 124–186; BP diastolic 71–101; PULSE 82–103; RESP 18; TEMP 36.4–36.9; O2SAT 94–98; BMI 24.8
[2021-01-02] MEDS: Enoxaparin 40 MG/0.4 ML Syringe SC (06:38)
[2021-01-02] MEDS: Insulin Lispro 100 UNIT/ML INSULN.PEN SC ×3 (06:38→16:39)
[2021-01-02 06:45] LABS: Bedside Glucose 187 mg/dL (70-110)
[2021-01-02 07:11] LABS: Cholesterol 242 mg/dL (200); High Density Lipoprotein 39 mg/dL; Triglycerides 204 mg/dL; Very Low Density Lipoprotein 41 mg/dL (5-40)
--- NOTE | 2021-01-02 08:14 | CT_ITS ---
STUDY: CT BRAIN WITHOUT CONTRAST REASON FOR EXAM: Male, 80 years old. Worsening LUE weakness and face droop RADIATION DOSAGE (If Supplied By Facility): CTDIvol = ( 44.99 ) mGy, DLP = ( 829.85 ) mGycm TECHNIQUE: Transaxial CT imaging of the brain was performed without administration of intravenous contrast material. Individualized dose optimization techniques were used for this CT. COMPARISON: Comparison is made with prior study 12/31/2020. FINDINGS: Normal soft tissue structures. Normal calvarium. There is mild cerebral atrophy with widening of the extra-axial spaces and ventricular dilatation. There are areas of decreased attenuation within the white matter tracts of the supratentorial brain, consistent with microvascular disease changes. Decreased attenuation in the right basal ganglion and deep white matter of the right parietal lobe in keeping with the ischemic insult. Stable 6 mm hypodensity in the right side of the antony in keeping with old infarct. Normal cerebellum. There is no intracranial hemorrhage. There are no findings of an acute ischemic infarction. Atherosclerotic calcification of the vertebral arteries and cavernous portions of the internal carotid arteries bilaterally. Normal visualized paranasal sinuses. CT/Brain/Head without Contrast IMPRESSION: Findings suggestive of an ischemic insult involving the right basal ganglion and deep white matter of the right parietal lobe. Electronically Signed: Micah Murrieta MD at 9:00 EDT , Service support ,
[2021-01-02] MEDS: Clopidogrel Bisulfate 75 MG Tablet PO (08:36)
[2021-01-02] MEDS: Multivitamins,Ther W-Minerals Tablet 1 TABLET PO (08:36)
[2021-01-02] MEDS: Aspirin 81 MG TAB.CHEW PO (08:36)
[2021-01-02] MEDS: Chlorthalidone 50 MG Tablet 25 MG PO (10:23)
[2021-01-02] MEDS: amLODIPine 10 MG Tablet PO (10:23)
[2021-01-02] MEDS: Losartan Potassium 100 MG Tablet PO (10:23)
[2021-01-02] MEDS: Ezetimibe 10 MG Tablet PO (10:24)
[2021-01-02 12:00] LABS: Bedside Glucose 227 mg/dL (70-110)
--- NOTE | 2021-01-02 14:40 | PCM.PN.HOSP ---
Documented by User: Rosy Beebe NP, SECURITY [employer] RESPONSE ENGINEER-C 01/02/21 14:47 Subjective Subjective 1. Acute CVA-MRI of brain with right basal ganglia and right parietal infarcts. Repeat brain CT obtained due to worsening left hand weakness which suggest the same. 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 Basilar artery patent as well as posterior circulation. Echocardiogram demonstrates an EF of 65%, negative for interatrial shunt, stage I diastolic dysfunction. [facility] neurology consulted. Plan for aspirin, Plavix for 21 days followed by aspirin only. Allergy to statin. No indication for carotid endarterectomy. PT/OT/ST. Rehab unit pending acceptance. 2. Hypertension-Stable, continue amlodipine, chlorthalidone, losartan. 3. Type 2 diabetes mellitus-Metformin on hold. Continue long-acting regimen. Accu-Cheks with sliding scale insulin. DVT prophylaxis- SCDs This patient was seen by YAN Bledsoe under the supervision of Dr. Meyer. Objective Data Objective Data Vital Signs: Vital Signs Temp Pulse Resp BP Pulse Ox 97.5 F L 96 18 124/71 H 96 01/02/21 12:20 01/02/21 12:20 01/02/21 12:20 01/02/21 12:20 01/02/21 12:20 Oxygen Delivery Method Room Air Weight: 183 lb 3.266 oz Body Mass Index (BMI) 24.8 Intake & Output: Intake and Output for Last 24 Hours 12/31/20 01/01/21 01/02/21 23:59 23:59 23:59 Intake Total 720 / 720 480 / 600 480 / 480 Balance 720 / 720 480 / 600 480 / 480 Lab / Micro Data Result Diagrams: 01/01/21 05:25 01/01/21 05:25 Labs: Laboratory Results - last 24 hr 01/01/21 11:53: POC Glucose 240 H 01/01/21 16:05: POC Glucose 234 H 01/01/21 21:23: POC Glucose 226 H 01/02/21 06:15: Triglycerides 204 H, Cholesterol 242 H, LDL Cholesterol 162 H, VLDL Cholesterol 41 H, HDL Cholesterol 39 L 01/02/21 06:37: POC Glucose 187 H 01/02/21 11:42: POC Glucose 227 H Radiography Diagnostic Testing: Radiology Impression Brain CT 01/02/21 08:14 IMPRESSION: Findings suggestive of an ischemic insult involving the right basal ganglion and deep white matter of the right parietal lobe. Electronically Signed: Micah Murrieta MD at 9:00 EDT , Service support , Documented by User: Dr. Jessica Meyer MD 01/02/21 15:06 Objective Data Lab / Micro Data Result Diagrams: 01/01/21 05:25 01/01/21 05:25 Charges/Coding Addendum Addendum: Patient seen by Rosy HEREDIA under my supervision Patient seen and examined. He does appear to have worsening of his left upper extremity weakness and also more pronounced left facial droop. 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 Review of systems otherwise negative. He denies any focal weakness apart from the left upper extremity weakness and denies any blurred vision. He feels like his speech is not as clear today as it usually is. Vitals have remained stable. O/E: Const alert, oriented x3 and no apparent distress General Appearance: cooperative Exam Limitations: no limitations HEENT normocephalic, head/scalp atraumatic, hearing grossly normal bilaterally, moist oral mucous membranes and oropharynx normal Head and Scalp: normocephalic Eyes PERRL and EOMs intact bilaterally Neck no lymphadenopathy Resp normal respiratory effort and clear to auscultation bilaterally Cardio regular rate, regular rhythm, S1 normal heart sound, S2 normal heart sound and no murmurs GI normal to inspection, nondistended, normoactive bowel sounds, soft to palpation, non-tender and non-distended Extremity normal to inspection Peripheral Pulses: Yes pulses 2+ throughout Skin no rashes or lesions noted Neuro CN's II-XII intact bilaterally Neuro Narrative: power in LUE is more reduced today at 2/5; power in rest of extremities are 5/5. Normal sensation in all extremities. has right facial droop Sensorium / Orientation: awake and alert Psych affect normal Repeat CT of the brain obtained today on account of worsening of this left upper extremity weakness and right facial droop showed findings suggestive of an ischemic insult involving the right basal ganglia and deep white matter of the right parietal lobe which is similar to the previous MRI findings. Symptoms are therefore likely related to the stroke that he has had. On aspirin and Plavix. To be on dual antiplatelet therapy for 21 days and then to continue with aspirin only. On ezetimibe. Unable to take statin as he states he has myalgias. Continue blood pressure medications to keep blood pressure less than 04/12/1979. PT OT on board. Fall precautions. Patient currently awaiting placement. Rest as per YAN Bledsoe's which I reviewed and endorsed. Visit Charges Inpatient E&M: 62436 Subs Hosp L2
--- NOTE | 2021-01-02 16:06 | PCM.DC ---
Discharge Instructions Diet Discharge Diet: Low fat / Low cholesterol Activity Discharge Activity: Return to Normal Activity Dressing / Incision Call your doctor if you observe: Shortness of breath, Dizziness and Chest pain Follow Up Care Test Results: Test results from this visit will be discussed in further detail at your follow-up appointment, if applicable. Discharge Plan Admission Admit Date/Time: 01/01/21 13:57 Primary Reason for Your Visit: CVA Attending Provider: Jessica Meyer Primary Care Provider: Butch Banegas Discharge Orders/Prescriptions Prescriptions: New aspirin 81 mg Tablet,Chewable 81 mg PO BREAKFAST Qty: 0 RF: 0 clopidogrel 75 mg Tablet 75 mg PO DAILY Qty: 0 RF: 0 ezetimibe 10 mg Tablet 10 mg PO DAILY Qty: 0 RF: 0 Continued metformin 500 mg tablet 1,000 mg PO BID RF: 0 multivitamin,at-ktcd-bdvapkfx tablet tablet 1 tab PO QDAY RF: 0 amlodipine 5 mg tablet 10 mg PO DAILY RF: 0 valsartan 320 mg tablet 320 mg PO QHS RF: 0 Basaglar KwikPen U-100 Insulin 100 unit/mL (3 mL) insulin pen 30 unit SUBCUT DAILY RF: 0 chlorthalidone 25 mg tablet 25 mg PO DAILY RF: 0 Referrals / Follow Up: Butch Banegas MD [Primary Care Provider] - In 1 Week Rufus Khan MD [NON-STAFF] - Within 2 Weeks Disposition Disposition (needs filled in before D/C Order can be placed): Inpatient Rehab Unit/Facility
--- NOTE | 2021-01-02 16:17 | DS.PCM_ITS ---
Documented by User: Rosy Beebe NP, NATIONAL ACCOUNT REPRESENTATIVE-C 01/02/21 16:23 Providers Date of Admission: 01/01/21 Date of Discharge: 01/02/21 Primary Care Physician: Dr. Butch Banegas MD Reason For Visit: PROBABLE CVA Diagnosis Discharge Diagnosis (1) Acute stroke due to ischemia: Status: Acute Code(s): I63.9 - Cerebral infarction, unspecified Medications at Discharge Home Medications metformin 500 mg tablet 1,000 mg PO BID 03/03/17 multivitamin,yc-raga-cryxhlas 1 tab PO QDAY 03/03/17 Basaglar KwikPen U-100 Insulin 30 unit SUBCUT DAILY 12/31/20 amlodipine 10 mg PO DAILY 12/31/20 chlorthalidone 25 mg PO DAILY 12/31/20 valsartan 320 mg PO QHS 12/31/20 aspirin 81 mg PO BREAKFAST #0 tab 01/02/21 clopidogrel 75 mg PO DAILY #0 tab 01/02/21 ezetimibe 10 mg PO DAILY #0 tab 01/02/21 Hospital Course Operations None Procedures 2-D Echocardiogram Summary of Care Provided Minutes Spent on Discharge: 35 Hospital Course: Patient is an 80-year-old male admitted 12/31/2020 due to left- sided weakness. 1. Acute CVA-MRI of brain with right basal ganglia and right parietal infarcts. Repeat brain CT obtained due to worsening left hand weakness which suggested the same. 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 Basilar artery patent as well as posterior circulation. Echocardiogram demonstrates an EF of 65%, negative for interatrial shunt, stage I diastolic dysfunction. [facility] neurology consulted. Plan for aspirin, Plavix for 21 days followed by aspirin only. Allergy to statin. No indication for carotid endarterectomy. PT/OT/ST. Rehab unit at discharge. Outpatient follow-up with neurology. 2. Hypertension-Stable, continue amlodipine, chlorthalidone, losartan. 3. Type 2 diabetes mellitus-continue home Metformin and long-acting regimen. Hemoglobin A1c 6.7%. Patient seen and examined prior to discharge. Physical assessment as noted below. Patient is stable for discharge with follow up recommendations as noted above. This patient was seen by YAN Bledsoe under the supervision of Dr. Meyer. Physical Exam Const alert, oriented x3 and no apparent distress Orientation / Consciousness: awake, oriented to person, oriented to place and oriented to time HEENT normocephalic and moist oral mucous membranes Eyes PERRL, EOMs intact bilaterally and conjunctivae normal Neck no lymphadenopathy Resp normal respiratory effort and clear to auscultation bilaterally Cardio regular rate, regular rhythm and no murmurs Peripheral Pulses: pulses 2+ throughout GI normal to inspection, nondistended, normoactive bowel sounds, non-tender and non-distended Extremity normal to inspection Skin no rashes or lesions noted Lesions: no lesions Rashes: no rashes Trauma: no lacerations or abrasions Neuro CN's II-XII intact bilaterally, no focal motor deficits, no sensory deficits noted and deep tendon reflexes 2+ bilaterally Neuro Narrative: Left upper extremity weakness with inability to use left hand, left facial droop. Psych mental status grossly normal and affect normal Weight / BMI Weight Weight: 183 lb 3.266 oz Body Mass Index (BMI) 24.8 ABG / Lab / Microbiology Data Result Diagrams: 01/01/21 05:25 01/01/21 05:25 Laboratory: Laboratory Results - last 24 hr 01/01/21 21:23: POC Glucose 226 H 01/02/21 06:15: Triglycerides 204 H, Cholesterol 242 H, LDL Cholesterol 162 H, VLDL Cholesterol 41 H, HDL Cholesterol 39 L 01/02/21 06:37: POC Glucose 187 H 01/02/21 11:42: POC Glucose 227 H Radiography Diagnostic Testing: Radiology Impression Brain CT 01/02/21 08:14 IMPRESSION: Findings suggestive of an ischemic insult involving the right basal ganglion and deep white matter of the right parietal lobe. Electronically Signed: Micah Murrieta MD at 9:00 EDT , Service support , D/C Instructions Discharge Diet: Low fat / Low cholesterol Call your doctor if you observe: Shortness of breath, Dizziness and Chest pain Meaningful Use Info Meaningful Use Diagnoses (Choose all that apply): Ischemic CVA CVA Therapy Assessed for PT,OT and/or ST?: Yes Ischemic Stroke Antithrombotic order at d/c?: Yes Dx of Atrial fib/flutter?: No Statins at discharge?: No Reason Statin not ordered: Drug Allergy Primary Dx Acute Ischemic CVA?: Yes IV tPA ordered during stay?: No Reason IV t-PA not ordered: Medical Contraindication Discharge Plan Admission Admit Date/Time: 01/01/21 13:57 Primary Reason for Your Visit: CVA Attending Provider: Jessica Meyer Primary Care Provider: Butch Banegas Discharge Orders/Prescriptions Prescriptions: New aspirin 81 mg Tablet,Chewable 81 mg PO BREAKFAST Qty: 0 RF: 0 clopidogrel 75 mg Tablet 75 mg PO DAILY Qty: 0 RF: 0 ezetimibe 10 mg Tablet 10 mg PO DAILY Qty: 0 RF: 0 Continued metformin 500 mg tablet 1,000 mg PO BID RF: 0 multivitamin,hh-ryps-wthymisd tablet tablet 1 tab PO QDAY RF: 0 amlodipine 5 mg tablet 10 mg PO DAILY RF: 0 valsartan 320 mg tablet 320 mg PO QHS RF: 0 Basaglar KwikPen U-100 Insulin 100 unit/mL (3 mL) insulin pen 30 unit SUBCUT DAILY RF: 0 chlorthalidone 25 mg tablet 25 mg PO DAILY RF: 0 Referrals / Follow Up: Butch Banegas MD [Primary Care Provider] - In 1 Week Rufus Khan MD [NON-STAFF] - Within 2 Weeks Disposition Disposition (needs filled in before D/C Order can be placed): Inpatient Rehab Unit/Facility Documented by User: Dr. Jessica Meyer MD 01/02/21 16:33 Providers Date of Admission: 01/01/21 Reason For Visit: PROBABLE CVA Medications at Discharge Home Medications metformin 500 mg tablet 1,000 mg PO BID 03/03/17 multivitamin,jo-gdtg-wafonqzl 1 tab PO QDAY 03/03/17 Basaglar KwikPen U-100 Insulin 30 unit SUBCUT DAILY 12/31/20 amlodipine 10 mg PO DAILY 12/31/20 chlorthalidone 25 mg PO DAILY 12/31/20 valsartan 320 mg PO QHS 10/20/21 aspirin 81 mg PO BREAKFAST #0 tab 10/22/21 clopidogrel 75 mg PO DAILY #0 tab 01/02/21 ezetimibe 10 mg PO DAILY #0 tab 01/02/21 ABG / Lab / Microbiology Data Result Diagrams: 01/01/21 05:25 01/01/21 05:25 Discharge Plan Admission Admit Date/Time: 01/01/21 13:57 Primary Reason for Your Visit: CVA Attending Provider: Jessica Meyer Primary Care Provider: Butch Banegas Discharge Orders/Prescriptions Prescriptions: New aspirin 81 mg Tablet,Chewable 81 mg PO BREAKFAST Qty: 0 RF: 0 clopidogrel 75 mg Tablet 75 mg PO DAILY Qty: 0 RF: 0 ezetimibe 10 mg Tablet 10 mg PO DAILY Qty: 0 RF: 0 Continued metformin 500 mg tablet 1,000 mg PO BID RF: 0 multivitamin,jj-lmcd-fzdgwscw tablet tablet 1 tab PO QDAY RF: 0 amlodipine 5 mg tablet 10 mg PO DAILY RF: 0 valsartan 320 mg tablet 320 mg PO QHS RF: 0 Basaglar KwikPen U-100 Insulin 100 unit/mL (3 mL) insulin pen 30 unit SUBCUT DAILY RF: 0 chlorthalidone 25 mg tablet 25 mg PO DAILY RF: 0 Referrals / Follow Up: Butch Banegas MD [Primary Care Provider] - In 1 Week Rufus Khan MD [NON-STAFF] - Within 2 Weeks Disposition Disposition (needs filled in before D/C Order can be placed): Inpatient Rehab Unit/Facility Charges/Coding Addendum Addendum: Patient seen by Rosy HEREDIA under my supervision SHAISTA PEDRO LUIS, is a 80 M witha PMH as outlined below who presents with a complaint of inability to move his left arm or left leg very well. His last known well was ~ 21:30 the night before admission when he went to bed. He woke up this morning with the above symptoms. NIH was 3 on presentation in the ED. He woke up a ~ 3am today with these symptoms, but went back to sleep. He woke up again this morning with the same symptoms so he was brought in to the ED. He denied any slurred speech, headache, numbness or tingling. Per patient and his , he did have some tingling of his LUE during day before presentation, but he didnt think much of it. Review of systems was otherwise negative. On admission in the ED, vitals were BP of 175/84, CT of 77, RR of 14 and oxygen sats of 94% on room air. CBC and BMP were unremarkable, apart from Cr of 1.42, with unknown baseline. CT of the brain showed chronic involutional changes, with a right pontine round hypodensity measuring 6mm most consistent with old infarct, and CTA of the head and neck showed normal proximal vertebral arteries and a focal short segment occlusion of the distal right vertebral artery within the intradural portion with scattered atherosclerotic plaque involving the distal left vertebral artery with mild luminal narrowing which remains patent. He was admitted to be managed for probable CVA. Telestroke consult was called. He was started on aspirin and plavix as well as statin. He had an MRI of the brain which showed evidence of acute ischemic changes in the right basal ganglia, indicative of a stroke. 2D echo showed normal LV size adn mild concentric LV hypertrophy, with sigmoid sept um and normal LV systolic function, and stage 1 diastolic dysfunction, as well as EF of 65%, with negative bubble study. [facility] neurology was consulted, and plan was for patient to be on aspirin and plavix for 21 days, then to continue with aspirin 81mg only. Patient said he couldnt take statins due to a history of myalgia whilst taking statins. He was therefore started on ezetimibe. He wasa reviewed by physical therapy. Patient's left upper extremity weakness worsened and he appeared to have a more pronounced right facial droop. Repeat CT of the brain however showed no worsening of his stroke and showed ischemic changes in the right basal ganglia and right parietal region. He remained stable and was discharged home on 01/01/2021. He is to follow up with his PCP and neurology. 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 HE was advised by neurology to abstain from driving for the next one month, and is to follow up with an assessment at [facility] to determine if he can still drive. Patient was seen and examined prior to discharge. He was concerned about the worsening left upper extremity weakness. Review of systems otherwise negative. Labs and vitals reviewed. Home medication reviewed and reconciled. O/E: Const alert, oriented x3 and no apparent distress General Appearance: cooperative Exam Limitations: no limitations HEENT normocephalic, head/scalp atraumatic, hearing grossly normal bilaterally, moist oral mucous membranes and oropharynx normal Head and Scalp: normocephalic Eyes PERRL and EOMs intact bilaterally Neck no lymphadenopathy Resp normal respiratory effort and clear to auscultation bilaterally Cardio regular rate, regular rhythm, S1 normal heart sound, S2 normal heart sound and no murmurs GI normal to inspection, nondistended, normoactive bowel sounds, soft to palpation, non-tender and non-distended Extremity normal to inspection Peripheral Pulses: Yes pulses 2+ throughout Skin no rashes or lesions noted Neuro CN's II-XII intact bilaterally Neuro Narrative: power in LUE is more reduced today at 2/5; power in rest of extremities are 5/5. Normal sensation in all extremities. has right facial droop Sensorium / Orientation: awake and alert Psych affect normal Plan is for discharge to SNF today. Rest as per Rosy Beebe NATIONAL ACCOUNT REPRESENTATIVE-c's note, which I have reviewed and endorsed. Visit Charges Inpatient E&M: 94221 Disch Hosp
[2021-01-02 16:45] LABS: Bedside Glucose 169 mg/dL (70-110)
--- NOTE | 2021-01-02 16:58 | CASEMGMT ---
Patient was approved to go to [facility] 4th floor rehab unit. SW notified patient. He was very emotional and tearful. SW provided emotional support. SW also gave him a pamphlet for [facility] Stroke Support group. Patient's arrived and SW updated her. SW also gave her a the Inpatient Rehab pamphlet and corrected the visitation to reflect the current visitation. Plan: d/c to [facility] 4th floor Rehab Unit. Liza CAMARA
== END 2021-01-02 18:27 | DRG 67 ==
LOC: ED 07:57 → PCU 09:03
PROVIDERS: Admitting Provider Student in an Organized Health Care Education/Training Program; Emergency Provider Emergency Medicine; PCP Family Medicine; Visit Provider Student in an Organized Health Care Education/Training Program
DX: I65.01 Occlusion and stenosis of right vertebral artery (principal); I63.9 Cerebral infarction, unspecified; G81.94 Hemiplegia, unspecified affecting left nondominant side; I10 Essential (primary) hypertension; E11.9 Type 2 diabetes mellitus without complications; R29.703 NIHSS score 3; R29.810 Facial weakness; Z79.4 Long term (current) use of insulin; Z79.899 Other long term (current) drug therapy
CPT/HCPCS: 36415; 70450; 70496; 70498; 70551; 71045; 80048; 80061; 82962; 83036; 84484; 85025; 85610; 85730; 92523; 92610; 93005; 93306; 97162; 97166; 97530; 97535; 97802; 99285; Q9957; Q9967; A4216; C8929

== ENCOUNTER 2021-01-02 18:36 | Inpatient (IN) | payer MEDICARE, SELFPAY ==
[2021-01-02 18:39] VITALS: BP 151/80; PULSE 97; RESP 18; TEMP 36.7; O2SAT 95; BMI 24.8
[2021-01-02 19:45] VITALS: BP 159/84; PULSE 96; RESP 18; TEMP 36.6; O2SAT 93
[2021-01-02 21:00] VITALS: PULSE 96; RESP 18; O2SAT 93
[2021-01-02] MEDS: Losartan Potassium 100 MG Tablet PO (21:57)
[2021-01-02] MEDS: metFORMIN HCl 1,000 MG Tablet 1000 MG PO (21:58)
[2021-01-02] MEDS: Insulin Lispro 100 UNIT/ML INSULN.PEN SC (21:58)
[2021-01-02 22:35] LABS: Bedside Glucose 163 mg/dL (70-110)
[2021-01-03] VITALS (8 sets, daily range): BP systolic 128–165; BP diastolic 69–86; PULSE 84–104; RESP 16–18; TEMP 36.2–36.3; O2SAT 92–98; BMI 24.8
--- NOTE | 2021-01-03 03:19 | NURSING ---
Reviewed and agree with ROLL EDGE MACHINE OPERATOR note and assessment.
[2021-01-03] MEDS: Enoxaparin 40 MG/0.4 ML Syringe SC (05:09)
[2021-01-03] MEDS: Nystatin Powder 15gm Bottle 1 APPLIC TOPICAL ×3 (06:48→20:39)
[2021-01-03 07:00] LABS: Bedside Glucose 176 mg/dL (70-110)
[2021-01-03] MEDS: metFORMIN HCl 1,000 MG Tablet 1000 MG PO ×2 (08:04→17:00)
[2021-01-03] MEDS: amLODIPine 10 MG Tablet PO (08:04)
[2021-01-03] MEDS: Multivitamins,Ther W-Minerals Tablet 1 TABLET PO (08:04)
[2021-01-03] MEDS: Ezetimibe 10 MG Tablet PO (08:04)
[2021-01-03] MEDS: Insulin Lispro 100 UNIT/ML INSULN.PEN SC ×3 (08:05→20:38)
[2021-01-03] MEDS: Aspirin 81 MG TAB.CHEW PO (08:07)
[2021-01-03] MEDS: Chlorthalidone 50 MG Tablet 25 MG PO (08:07)
[2021-01-03] MEDS: Clopidogrel Bisulfate 75 MG Tablet PO (08:07)
--- NOTE | 2021-01-03 10:14 | HP.PCM_ITS ---
HPI - General General Date of Admission: 01/02/21 HPI Narrative SHAISTA CLOUD, is a 80 YO M with a PMH of diabetes mellitus type 2, hypertension and recurrent right inguinal hernia who presented to the emergency department at [facility] on 12/31/2020 complaining of weakness in his left arm and left leg. CTB showed a right pontine round hypodensity measuring 6 mm most consistent with an old infarct. No acute findings. CTA of the head and neck showed a focal short segment occlusion of the distal right vertebral artery likely representing soft plaque or thrombus. There was scattered atherosclerotic plaque involving the distal left vertebral artery with mild luminal narrowing. Teleneurology was consulted and recommended MRI, ASA and Plavix along with a statin. He was admitted to [facility] for further evaluation. TTE showed mild concentric left ventricular hypertrophy with an ejection fraction of 65%. There was stage I diastolic dysfunction and no regional wall motion abnormalities. Bubble contrast was negative for right to left shunt. The pulmonary artery systolic pressure was estimated at 36 which is consistent with mild pulmonary hypertension. The right ventricle was normal size with normal systolic function. 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 He was evaluated by PT/OT/ST and acute rehab was recommended. He was transferred to the acute inpt rehab unit at [facility] on 01/02/21 for 3 hours of therapy daily to restore function at or near his prior level of function. Significant lab during his hospital admission included an elevated creatinine at 1.42 at admission with an estimated GFR of 51 which is consistent with stage IIIa chronic renal failure. Following hydration the creatinine decreased to 1.22. No baseline is available at this time. The hemoglobin A1c was 6.7. Total cholesterol was 242 with an LDL of 162 and the HDL was 39. Triglycerides were elevated at 204. He was not on a statin at the time of admission. He had been on pravastatin in the past and it is listed as an allergy (myalgia). [facility] Medical History (Updated 01/03/21 @ 12:[address] Umm Jung DO) Diabetes mellitus HLD (hyperlipidemia) HTN (hypertension) Hydrocele in adult Osteoarthritis Recurrent inguinal hernia of right side without obstruction or gangrene Right pontine CVA Home Medications metformin 500 mg tablet 1,000 mg PO BID 03/03/17 [History Last Taken 12/30/20] multivitamin,op-anve-grapchzm 1 tab PO QDAY 03/03/17 [History Last Taken 12/30/20] Basaglmarlen AcharyaPen U-100 Insulin 30 unit SUBCUT DAILY 12/31/20 [History Last Taken 12/31/20] amlodipine 10 mg PO DAILY 12/31/20 [History Last Taken 12/30/20] chlorthalidone 25 mg PO DAILY 12/31/20 [History Last Taken 12/30/20] valsartan 320 mg PO QHS 12/31/20 [History Last Taken 12/30/20] aspirin 81 mg PO BREAKFAST 01/02/21 [History Last Taken Unknown] clopidogrel 75 mg PO DAILY 01/02/21 [History Last Taken Unknown] enoxaparin [Lovenox] 40 mg SUBCUT DAILY 01/02/21 [History Last Taken Unknown] ezetimibe 10 mg PO DAILY 01/02/21 [History Last Taken Unknown] Allergy/AdvReac Type Severity Reaction Status Date / Time meloxicam [From Mobic] Allergy Intermediate itching Verified 12/31/20 07:13 pravastatin [From Pravachol] AdvReac Mild myalgia Verified 12/31/20 07:13 cholestyramine AdvReac hypoglycemi Verified 12/31/20 07:13 a Family History Mother Hypertension Cancer Father Heart disease Diabetes Surgical History S/P inguinal hernia repair S/P lumbar laminectomy Social History (Updated 01/03/21 @ 12:[address] Umm Jung DO) household members: spouse and other details: Abigail is his 's name housing: house number of children: 2 current occupational status: retired and other details: worked for [employer] prior to retiring leisure activities: other Smoking Status: Never smoker Electronic Cigarette Use: not used alcohol intake: current alcohol intake frequency: 0-2 drinks per day details: occasional substance use type: does not use ROS Constitutional Constitutional: Reports difficulty sleeping; Denies anorexia, change in weight, chills, fatigue, fever(s), night sweats or weakness Eyes Eyes: Denies blurry vision, change in vision, eye pain or loss of vision ENT HEENT: Denies abnormal hearing, dysphagia, headache(s), hearing loss, nasal congestion or sore throat Cardiovascular Cardiovascular: Denies chest pain, dyspnea on exertion, edema, lightheadedness, orthopnea, palpitations, paroxysmal nocturnal dyspnea or syncope Respiratory/Chest Respiratory/Chest: Denies cough, dyspnea, shortness of breath at rest, shortness of breath with exertion or wheezing Gastrointestinal Gastrointestinal: Reports other Details: No hx of PUD ; Denies abdominal pain, constipation, diarrhea, dyspepsia, hematemesis, hematochezia, nausea or vomiting Genitourinary Genitourinary: Reports nocturia; Denies dysuria, hematuria, urinary frequency, urinary hesitancy, urinary incontinence or urinary urgency Musculoskeletal Musculoskeletal: Reports back pain and joint pain; Denies joint swelling or neck pain Integumentary Integumentary: Denies jaundice, rash or wounds Neurologic Neurologic: Reports abnormal gait, abnormal speech, focal weakness and weakness; Denies confusion, disequilibrium, dizziness, headache(s), paresthesias, seizures or tremor(s) Psychiatric Psychiatric: Denies anxiety, depression, homicidal ideation or suicidal ideation Endocrine Endocrinology: Denies change in body appearance, polydipsia or polyuria Hematologic/Lymphatic Hematologic/Lymphatic: Denies easy bleeding, easy bruising or lymphadenopathy Allergic/Immunologic Allergic/Immunologic: Denies rhinitis, eczemia or asthma Vital Signs Vital Signs Vital Signs: 01/02/21 18:39 01/02/21 19:45 01/02/21 21:00 Temperature 98.1 F 97.8 F Temperature Source Oral Oral Pulse Rate 97 96 96 Pulse Strength Normal (2+) Respiratory Rate 18 18 18 Respiratory Effort Normal Non-Labored Respiratory Depth Normal Respiratory Pattern Normal Blood Pressure 151/80 H 159/84 H Blood Pressure Mean 103 109 Blood Pressure Source Monitor Blood Pressure Position Semi-Fowlers Blood Pressure Location Right Arm Pulse Ox 95 93 93 Oxygen Delivery Method Room Air Room Air Room Air 01/03/21 05:28 01/03/21 06:20 01/03/21 07:30 Temperature 97.2 F L Temperature Source Oral Pulse Rate 94 Pulse Strength Respiratory Rate 18 Respiratory Effort Respiratory Depth Respiratory Pattern Blood Pressure 131/73 H Blood Pressure Mean 92 Blood Pressure Source Monitor Blood Pressure Position Supine Blood Pressure Location Right Arm Pulse Ox 92 93 97 Oxygen Delivery Method Room Air Room Air Room Air Weight Weight: 183 lb 3.266 oz Body Mass Index (BMI) 24.8 Indicators for Scoring Admitted with or Primary Diagnosis of CVA/Stroke: Yes Hx of CVA/Stroke: Yes Modified Ben Score MRS Score at time of Evaluation: 4-Moderate/severe disability NIHSS NIHSS 1a. Level of Consciousness: Alert; keenly responsive 1b. LOC Questions: Answers BOTH questions correctly. 1c. LOC Commands: Performs both tasks correctly. 2. Best Gaze: Normal 3. Visual: No visual loss 4. Facial Palsy: Minor paralysis (flattened nasolabial fold, asymmetry on smiling) 5a. Left Arm: No movement 5b. Right Arm: No drift; arm holds 90 (or 45) degrees for full 10 seconds 6a. Left Leg: Drift; leg falls by the end of 5-seconds, but does not hit bed 6b. Right Leg: No drift; leg holds 30-degree position for full 5 seconds 7. Limb Ataxia: Absent 8. Sensory: Normal; no sensory loss 9. Best Language: No aphasia; normal 10. Dysarthria: Kqxq-cs-ttlqtnwe dysarthria; 11. Extinction and Inattention: No abnormality Total: 7 Stroke Questions Stroke Team Activated: No Physical Exam Const alert, oriented x3, no apparent distress and well nourished Constitutional Narrative: Making good eye contact, appropriate. Flat affect. General Appearance: cooperative and well developed HEENT HEENT Narrative: Mucous membranes are very dry Eyes PERRL, EOMs intact bilaterally, conjunctivae normal, no scleral icterus and normal visual bedoya by confrontation Neck no lymphadenopathy, supple, no JVD and no carotid bruits Neck Narrative: Brisk carotid upstroke with excellent pulse volume General: trachea midline; Negative for anterior neck swelling or lymphadenopathy Resp normal respiratory effort, no use of accessory muscles and clear to auscultation bilaterally Resp Narrative: Not tachypneic and no conversational dyspnea. Cardio regular rate, regular rhythm, S1 normal heart sound, S2 normal heart sound, no murmurs, no rub and no gallops GI normal to inspection, nondistended, normoactive bowel sounds and non-tender GI Narrative: No guarding with palpation. No hepatosplenomegaly. Extremity no clubbing, cyanosis or edema Extremity Narrative: Negative Bi's and Kaity's signs Skin Skin Narrative: No rashes, no skin breakdown. Neuro oriented x3 Neuro Narrative: see the NIHSS scoring. He has a left facial droop. There is no movement in the LUE. He is right hand dominant. No sensory deficits. No neglect. LLE has a little drift but it does not hit the bed. Speech is a little slurred but, no aphasia. Motor Exam: strength 5/5 throughout Psych affect normal Psych Narrative: Appropriate, making good eye contact. Able to stay on topic and focus. No flight of ideas. Affect is flat. He and I discussed the sx of depression and he will make me aware if he is experiencing any of the symptoms. He does admit to trouble sleeping. He can fall asleep but wakes up every hour or 2 and then can not get back to sleep right away. Results Lab / Micro Data Labs: Laboratory Results - last 24 hr 01/02/21 21:54: POC Glucose 163 H 01/03/21 06:47: POC Glucose 176 H Assessment & Plan Assessment/Plan (1) Osteoarthritis: (2) Diabetes mellitus: (3) HLD (hyperlipidemia): (4) Ischemic cerebrovascular accident (CVA): (5) Physical debility: (6) Acute left-sided muscle weakness: (7) Dysarthria: (8) Facial droop due to acute stroke: PLAN: PLAN PT for gait stability OT for ADL's ST for evaluation Analgesics as needed Bowel protocol Fall precautions Assess for Anxiety/Depression GI prophylaxis-not necessary at this time. He has no history of peptic ulcer disease and he is asymptomatic DVT prophylaxis with enoxaparin 40 mg subcu daily Follow up with PCP, neurology following DC from [facility] Rehab liver panel, UA, microalbumin/creat ratio, Mag, Repeat BMP Tuesday Encourage increased fluid intake DC chlorthalidone -he was started on this 1 month ago for uncontrolled blood pressure. Admits to not drinking much water during the day. Clonidine 0.1 mg p.o. every 6 hours as needed systolic greater than 150 or diastolic greater than 85 Try melatonin 3 mg p.o. nightly for sleeping difficulty Overnight trending pulse ox - he snores, his tells him he stops breathing, he has HTN, he is > 50 YOA, Will measure the neck circumference BUT, even without the neck circumference his STOP BANG score puts him at high risk for sleep apnea. Consider a 30-day event monitor at discharge to exclude atrial fibrillation as contributing to history of now 2 strokes. Charges/Coding Visit Charges Inpatient E&M: 30168 Init Hosp L3
--- NOTE | 2021-01-03 10:41 | REHABEVAL_ITS ---
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 Potential Problem List:: DVT, Bleeding, Infection, UTI, Aspiration, Falls, Skin Integrity and Depression Risk of Complications DVT: LMWH and NEY Hose Bleeding: Monitor Lab Values, Nursing to Teach Precautions for anti-coagulation therapy., Wound, if applicable, to be assessed every shift. and Stroke patients assessed for lethargy or change in status. Infection: Clinical Staff to Monitor for S/S of infection: and S/S of infection include fever, redness, warmth, etc. Urinary Tract Infection: Monitor for frequency, burning, discomfort, or incontinence. and Nursing will obtain urine sample for urinalysis and C&S when ordered. Aspiration: Clinical staff will monitor for coughing, drooling, congestion., Speech will evaluate swallowing and dsyphasia. and Nursing will monitor patient swallowing during meals. Falls: Patient will be evaluated for Fall Precautions and Patient will be placed on Fall Precautions as indicated per protocol. Skin Breakdown: Nursing will assess skin daily using assessment tool. and Nursing will place on Skin Breakdown Precautions as indicated. Pain: Clinical staff will assess patient's pain level per protocol., Medications will be given, if needed, and the pain level reassessed. and Other methods: Massage, distraction, decrease stimulus, etc. used PRN. Plan of Care Patient requires physician specializing in physical medicine and rehab oversight to provide close medical supervision of rehab issues including: Pain Management, Sleep Problems, Bowel and Bladder, Medical and co-morbidity Management, DVT prophylaxis, Rehabilitation Leadership and Coordination of treatment team Patient needs Physical Therapy: For a minimum of 1 hour and At least 5 out of 7 days Patient needs Physical Therapy to improve:: Mobility, Strengthening, Transfers, Stretching, ROM, Endurance, Stairs, Gait and Balance Patient needs Occupational Therapy: For a minimum of 1 hour and At least 5 out of 7 days Patient needs Occupational Therapy to improve ADL's incl.: Eating, Grooming, Bathing, Dressing, Toileting, Toilet transfers, Community Reintegration, Higher functioning activities, Household tasks, Adaptive Equipment, Splinting and Other activities as determined Patient requires speech therapy: - (ST will evaluate and decision will be made how long he will have ST for dysarthria) Patient requires speech therapy for: Swallowing and Compensatory Strategies Patient requires 24/7 Rehabilitation Nursing for: Pain Issues, Identifying and preventing risk factors, Monitoring and reporting current medical conditions, Assisting with ambulation, transfer, and all ADL's, Teaching patients about disease process and medications, Family teaching, Providing safe environment, Bowel and Bladder Issues, Skin integrity and Medication Management Patient needs Instructional Support Specialist/ Case Management for: Discharge Planning, Arranging Home Equipment or Services and Family Interventions Patient needs Dietary and Nutrition Services for: Adequate Nutrition, Nutritional Supplements and Nutritional Education Goals Patient will remain: free from falls and or injury at time of discharge. Patient will perform bed mobility at: MOD I level of assist. Patient will complete transfers from bed to chair at: MOD I level of assist. Patient will ambulate: - (200 feet with least restrictive device at mod I) Patient will complete upper body dressing at: - (Will likely require assistance as the LUE has no movement at this time.) Patient will complete lower body dressing at: - (minimal assistance) Patient will complete toileting at: Standby Assist. Patient will perform bathing at: Standby Assist. Patient will complete grooming at: MOD I level of assist. Patient will complete home management skills at: Standby Assist. Patient will achieve: - (1 curb step and 3 steps with a cane to gain access to his home) Patient will have pain level of: of 3 or less Patient's skin will: remain intact Patient will receive: adequate nutrition. Discharge Planning Pt Prognosis for Sig. Practical Improv. w/in Reasonable Time: Good Estimated Length of stay (days): 21 Anticipated D/C Destination: Home with Outpt Therapy Was Preadmission Assessment Accurate?: Yes
[2021-01-03 12:01] LABS: Bedside Glucose 158 mg/dL (70-110)
[2021-01-03] MEDS: Senna/Docusate Sodium 1 Tablet 2 TABLET PO (12:12)
--- NOTE | 2021-01-03 12:58 | NURSING ---
Neck is 37cm in circumference.
[2021-01-03 13:36] LABS: Bacteria 0 SEEN /hpf (None Seen); Mucous, Urine 0 SEEN /hpf (<or=2+); Squamous Epithelial Cells - UA 0 SEEN /hpf (0-5)
[2021-01-03 13:39] LABS: Color, Urine Yellow (Yellow); Glucose, Dipstick Normal (Normal); Ketone-Dipstick Negative (Negative); Leukocyte Esterase-Dipstick Negative /ul (Negative); Nitrite-Dipstick Negative (Negative); Occult Blood-Urine Negative /ul (Negative); Protein-Dipstick 30 mg/dl (Negative); Specific Gravity, Urine 1.015 (1.002-1.030); Urine Bilirubin Dipstick Negative (Negative); Urine Clarity Clear (Clear); Urine Urobilinogen Normal (Normal)
[2021-01-03 13:45] LABS: Red Blood Cells-Urine 0-5 SEEN /hpf (0-5); White Blood Cells 0-5 SEEN /hpf (0-5)
[2021-01-03 13:47] LABS: Protein, Urine (Random) 24.9 mg/dL (<11.9); Protein:Creat Ratio 116 mg/g CRE (0-200)
[2021-01-03 15:26] LABS: Red Blood Cells-Urine 0 SEEN /hpf (0-5); Squamous Epithelial Cells - UA 0 SEEN /hpf (0-5); White Blood Cells 0 SEEN /hpf (0-5)
[2021-01-03 15:27] LABS: Color, Urine Yellow (Yellow); Glucose, Dipstick Normal (Normal); Ketone-Dipstick Negative (Negative); Leukocyte Esterase-Dipstick Negative /ul (Negative); Nitrite-Dipstick Negative (Negative); Occult Blood-Urine Negative /ul (Negative); Protein-Dipstick 15 mg/dl (Negative); Specific Gravity, Urine 1.015 (1.002-1.030); Urine Bilirubin Dipstick Negative (Negative); Urine Clarity Clear (Clear); Urine Urobilinogen Normal (Normal)
[2021-01-03 15:36] LABS: Bacteria RARE /hpf (None Seen); Calcium Oxalate Crystals Ur RARE /hpf (<or=2+); Hyaline Cast 10-25 SEEN /lpf (0-5); Mucous, Urine RARE /hpf (<or=2+)
[2021-01-03] MEDS: 0.9% Saline Lock 10 ML Syringe IV ×2 (16:01→19:43)
[2021-01-03 16:06] LABS: Bedside Glucose 100 mg/dL (70-110)
[2021-01-03] MEDS: cloNIDine HCl 0.1 MG Tablet PO (19:44)
[2021-01-03] MEDS: Losartan Potassium 100 MG Tablet PO (20:37)
[2021-01-03] MEDS: MELATONIN 3 MG TABLET PO (20:38)
[2021-01-03] MEDS: Latanoprost 0.005% 1 Bottle 1 DRP EACH EYE (20:44)
[2021-01-03 20:46] LABS: Bedside Glucose 164 mg/dL (70-110)
[2021-01-04 06:23] VITALS: BP 154/69; BP 157/69; BP 159/90; PULSE 71; PULSE 78; PULSE 92
[2021-01-04 06:45] LABS: Bedside Glucose 111 mg/dL (70-110)
[2021-01-04] MEDS: Enoxaparin 40 MG/0.4 ML Syringe SC (06:45)
[2021-01-04 07:03] VITALS: O2SAT 94
[2021-01-04] MEDS: metFORMIN HCl 1,000 MG Tablet 1000 MG PO ×2 (07:51→17:20)
[2021-01-04] MEDS: Aspirin 81 MG TAB.CHEW PO (07:51)
[2021-01-04] MEDS: amLODIPine 10 MG Tablet PO (07:52)
[2021-01-04] MEDS: Multivitamins,Ther W-Minerals Tablet 1 TABLET PO (07:52)
[2021-01-04] MEDS: Ezetimibe 10 MG Tablet PO (07:52)
[2021-01-04] MEDS: Clopidogrel Bisulfate 75 MG Tablet PO (07:52)
[2021-01-04] MEDS: cloNIDine HCl 0.1 MG Tablet PO (07:52)
[2021-01-04] MEDS: Nystatin Powder 15gm Bottle 1 APPLIC TOPICAL ×2 (07:57→20:57)
[2021-01-04 08:06] VITALS: BP 160/70; PULSE 75; RESP 19; TEMP 36.7; O2SAT 95
--- NOTE | 2021-01-04 09:19 | PN_ITS ---
Progress Note Afebrile VSS-blood pressure is above goal. Goal blood pressure is less than 130/80. Blood pressure this morning is 160/70. Maintaining appropriate oxygen saturation on RA Oral intake is fair Discussed with nursing - He slept poorly last night and was having RLS. The patient and his told the RN that he does not drink water......he drinks d iet cranberry juice. Reviewed the PT/OT/ST notes Medication list reviewed. Blood sugar record was reviewed. Blood sugars are adequately controlled with no hypoglycemia. The neck circumference was 39 cm. Overnight pulse ox shows desaturations < 88%. He was not the best study because he was up and down all night. All lab was personally reviewed. He had 10-25 hyaline casts in his urine. He had increased protein in his urine however, the protein/creatinine ratio was within normal limits. He complains that he did not sleep well and he is also c/o jerky legs. He denies CP, SOB, cephalgia, nausea, cough or dysuria. PVR's are unremarakable and he is not retaining. Physical Exam Resp normal respiratory effort, normal air movement and clear to auscultation bilaterally Cardio regular rate, regular rhythm and no gallops GI normal to inspection, nondistended, normoactive bowel sounds, soft to palpation and non-tender Extremity no calf tenderness and no pedal edema Assessment & Plan Assessment/Plan (1) Physical debility: (2) Ischemic cerebrovascular accident (CVA): (3) Restless legs: (4) Sleep-disordered breathing: (5) Proteinuria due to type 2 diabetes mellitus: (6) HTN (hypertension): PLAN: 1. BP is not adequately controlled. He is on max dose of Cozaar and Amlodipine. I do not want to use a diuretic at this point because he will not drink wter. Yesterday the oral intake was only 960 despite being told he must increase his fluid intake. There are hyaline cast in the urine and the MM are once again very dry. Hygroton was discontinued yesterday but, it is long acting and will take a few days to get out of his system. Will continue the Clonidine. Hydrate today with LR. Recheck a BMP in the AM and a mag. Consider changing the amlodipine to Procardia XL 60 mg daily if the BP in the AM is still high or adding hydralazine. 2. Continue therapy 3. Apply oxygen any time he is sleeping 4. will need a sleep study and a 30 day event monitor at DC. Start Gabapentin at HS and DC the melatonin. Visit Charges Inpatient E&M: 17121 Subs Hosp L2
[2021-01-04 10:12] VITALS: BMI 24.8
[2021-01-04 12:30] LABS: Bedside Glucose 144 mg/dL (70-110)
[2021-01-04 17:35] LABS: Bedside Glucose 120 mg/dL (70-110)
[2021-01-04] MEDS: Gabapentin 100 MG Capsule 200 MG PO (20:30)
[2021-01-04 20:37] VITALS: BP 120/67; PULSE 71; RESP 16; TEMP 36; O2SAT 97
[2021-01-04] MEDS: Losartan Potassium 100 MG Tablet PO (20:57)
[2021-01-04] MEDS: Latanoprost 0.005% 1 Bottle 1 DRP EACH EYE (20:58)
[2021-01-04 21:15] LABS: Bedside Glucose 132 mg/dL (70-110)
[2021-01-05 01:53] VITALS: BMI 24.8
[2021-01-05] MEDS: Enoxaparin 40 MG/0.4 ML Syringe SC (06:03)
[2021-01-05 06:25] VITALS: BP 141/68; BP 150/73; BP 160/77; PULSE 65; PULSE 79; PULSE 82
[2021-01-05 06:41] LABS: Bedside Glucose 115 mg/dL (70-110)
[2021-01-05 07:37] LABS: AST(SGOT) 25 U/L (15-37); Alanine Aminotransfer ALT/SGPT 40 U/L (16-61); Albumin, Serum 2.9 g/dL (3.2-5.0); Alkaline Phosphatase 57 U/L (45-117); Anion Gap 9 (5-15); BUN 49 mg/dL (7-18); BUN/Creat Ratio 23.6 RATIO (10-20); Calcium,Total 9.2 mg/dL (8.5-10.1); Chloride 98 mmol/L (98-107); Creatinine, Serum 2.08 mg/dL (0.70-1.30); EST Glomerular Filtration Rate 33 mL/min (>60); Est Glom Filt Rate - Afr Amer 40 mL/min (>60); Estimated Creatinine Clearance 30.57 ml/min; Glucose 114 mg/dL (74-106); Magnesium 1.9 mg/dL (1.6-2.6); Potassium 3.5 mmol/L (3.5-5.1); Protein, Total 6.9 g/dL (6.4-8.2); Sodium Level 136 mmol/L (136-145)
[2021-01-05 08:19] VITALS: BP 141/68; PULSE 65; RESP 16; TEMP 36.4; O2SAT 94
[2021-01-05] MEDS: Senna/Docusate Sodium 1 Tablet 2 TABLET PO (08:54)
[2021-01-05] MEDS: Aspirin 81 MG TAB.CHEW PO (08:55)
[2021-01-05] MEDS: amLODIPine 10 MG Tablet PO (08:55)
[2021-01-05] MEDS: Nystatin Powder 15gm Bottle 1 APPLIC TOPICAL ×2 (08:55→21:43)
[2021-01-05] MEDS: metFORMIN HCl 1,000 MG Tablet 1000 MG PO ×2 (08:55→17:01)
[2021-01-05] MEDS: Clopidogrel Bisulfate 75 MG Tablet PO (08:55)
[2021-01-05] MEDS: Multivitamins,Ther W-Minerals Tablet 1 TABLET PO (08:55)
[2021-01-05] MEDS: Ezetimibe 10 MG Tablet PO (08:55)
[2021-01-05 11:05] LABS: Bedside Glucose 152 mg/dL (70-110)
[2021-01-05] MEDS: Insulin Lispro 100 UNIT/ML INSULN.PEN SC (11:57)
--- NOTE | 2021-01-05 14:17 | CASEMGMT ---
Social Work Team meeting held. Patient present as well as patient spouse and patient daughter. Patient to continue with further care and treatment on the Rehab Unit. Patient progressing with therapy. Patient with next insurance update due on 01/06/2021. This director of social services communicating no guarantee of continued stay being approved by insurance. Patient plans to discharge to home with spouse. Patient currently not able to return to home with spouse. Team is hopeful that patient will be able to return to home with spouse with more therapy. This director of social services did provide list of detention facilities local to patient geographical region in the event that continued stay is not approved and patient is not yet ready to return to home. Patient and patient daughter voiced understanding. Support provided. Social work to continue to follow. Benjamin KERN, HOA-Kris
--- NOTE | 2021-01-05 14:21 | PCM.PN.BLA ---
Progress Note Francisco was seen on TEAM rounds today. His Abigail and dtr Jimena were present in the room for rounds. Afebrile VSS-he is tilt negative today Maintaining appropriate oxygen saturation on RA Oral intake was 960 cc yesterday. Total intake was 1965 and the output was reported as 110 cc? Urine output so far today has been 650. He has received 2 L of intravenous fluids over the past 24 hours. Discussed with nursing - He slept well last night. Reviewed the PT/OT/ST notes. Medication list reviewed. Francisco denies cephalgia, lightheadedness, CP, SOB, N/V. He is coughing with drinking thin liquids and his family tells me that last night when he was eating supper he was pocketing food in the L cheek and they had to pull chicken out of his mouth because he was unable to swallow it. They are worried he is going to aspirate. I discussed this with the ST and the diet will be changed to soft with small bites and moist with thin liquids. Will have a MBS this week. Family told me that normally Francisco does not have a flat affect and he has no hx of depression. They have noticed he is much more subdued and he was actually very tearful in the room today which is uncharacteristic. Physical Exam Const alert, oriented x3 and well nourished Constitutional Narrative: He was eating his lunch when I saw him prior to rounds and his appetite was good. He was having tuna salad and was not coughing. General Appearance: cooperative and well developed Eyes PERRL, EOMs intact bilaterally, conjunctivae normal, no scleral icterus and normal visual bedoya by confrontation Eyes Narrative: He is not having trouble seeing BUT, he is having some L visual neglect Neck no lymphadenopathy and supple General: trachea midline Resp normal respiratory effort, normal air movement, no use of accessory muscles and clear to auscultation bilaterally Resp Narrative: Not tachypneic and no conversational dyspnea. Cardio regular rate, regular rhythm, S1 normal heart sound, S2 normal heart sound, no murmurs, no rub and no gallops GI normal to inspection, nondistended, normoactive bowel sounds, soft to palpation and non-tender GI Narrative: No guarding with palpation. No hepatosplenomegaly. Extremity no clubbing, cyanosis or edema, no calf tenderness and no pedal edema Extremity Narrative: Negative Bi's and Kaity's signs Skin Skin Narrative: No rashes, no skin breakdown. Neuro oriented x3 Neuro Narrative: Left facial droop. L arm is still flaccid. Tends to lean to the left when he is ambulating but, he is able to correct. Catching his toe on the Left when walking.....resolved with ALVIN wrapping the L foot into dorsiflexion. Mild dysarthria. Psych Psych Narrative: Flat affect, tearful. Can not tell me why he is crying. Appearance: grossly normal Assessment & Plan Assessment/Plan (1) HTN (hypertension): (2) Sleep-disordered breathing: (3) Restless legs: (4) Dysphagia: (5) Facial droop due to acute stroke: (6) Dysarthria: (7) Acute left-sided muscle weakness: (8) Physical debility: (9) Diabetes mellitus: (10) Ischemic cerebrovascular accident (CVA): (11) Depression: PLAN: 1. Start Sertraline 25 mg daily. 2. Continue the Gabapentin at 3. Sleep study and a 30 day event monitor at MD 4. O2 supplementation anytime he is sleeping 5. change the diet to soft, moist, small bite size pieces, thin liquids. He is getting Glucerna at meals. 5. Continue the current antihypertensive regimen and adjust as need to keep the BP < 135/80. 1. Is the patient currently on an ANTITHROMBOTIC medication: Aspirin ANTICOAGULANT none-no documented history of A. fib recently 2. Does the patient have known AF/AFLUTTER: No 3. Is the patient on a STATIN: Yes, Zetia 10 mg daily 4. Is the patient on VTE PROPHYLAXIS: Yes PHARMACOLOGIC intervention type: Lovenox 40 mg subcu daily MECHANICAL intervention type: NEY carmelae 5. GLYCEMIC control medications: Lantus 30 units daily, sliding scale insulin coverage and Metformin 1000 mg twice daily 6. Stroke BLOOD PRESSURE goals: Less than 135/80 7. Stroke IVF/NUTRITION: Heart healthy diet, carbohydrate consistent, 1800 manish, Glucerna with meals 8. TEMPERATURE control: He is afebrile 9. Does the patient need THERAPY: Yes -PT/OT/ST. MBS this week. Spent 20 minutes with the family and the pt outside of rounds today explaining the diagnosis, plan of care, explaining the modified barium swallow and results of the sleep study. Visit Charges Inpatient E&M: 24625 Subs Hosp L3
[2021-01-05 16:06] LABS: Bedside Glucose 78 mg/dL (70-110)
[2021-01-05 17:00] VITALS: BMI 24.8
[2021-01-05] MEDS: 0.9% Saline Lock 10 ML Syringe IV (17:04)
[2021-01-05 17:27] LABS: Urine Sodium 29 mmol/L (Not Establ.)
[2021-01-05 20:12] VITALS: BP 150/69; PULSE 65; RESP 18; TEMP 36.4; O2SAT 97
[2021-01-05 21:30] VITALS: PULSE 65; RESP 18; O2SAT 97; BMI 24.8
[2021-01-05] MEDS: Gabapentin 100 MG Capsule 200 MG PO (21:42)
[2021-01-05] MEDS: Losartan Potassium 100 MG Tablet PO (21:42)
[2021-01-05] MEDS: Latanoprost 0.005% 1 Bottle 1 DRP EACH EYE (21:43)
[2021-01-05 22:00] LABS: Bedside Glucose 136 mg/dL (70-110)
[2021-01-06] MEDS: 0.9% Saline Lock 10 ML Syringe IV (03:31)
[2021-01-06] MEDS: Enoxaparin 40 MG/0.4 ML Syringe SC (05:57)
[2021-01-06] MEDS: cloNIDine HCl 0.1 MG Tablet PO ×2 (05:58→17:47)
[2021-01-06 06:02] LABS: Albumin, Serum 2.8 g/dL (3.2-5.0); BUN 36 mg/dL (7-18); BUN/Creat Ratio 25.7 RATIO (10-20); Calcium,Total 9.1 mg/dL (8.5-10.1); Chloride 104 mmol/L (98-107); EST Glomerular Filtration Rate 52 mL/min (>60); Est Glom Filt Rate - Afr Amer 63 mL/min (>60); Estimated Creatinine Clearance 45.42 ml/min; Glucose 90 mg/dL (74-106); Phosphorus 2.9 mg/dL (2.5-4.9); Potassium 3.4 mmol/L (3.5-5.1); Sodium Level 141 mmol/L (136-145)
[2021-01-06 06:41] LABS: Bedside Glucose 93 mg/dL (70-110)
[2021-01-06 07:25] VITALS: O2SAT 97
[2021-01-06] MEDS: amLODIPine 10 MG Tablet PO (08:16)
[2021-01-06] MEDS: Multivitamins,Ther W-Minerals Tablet 1 TABLET PO (08:16)
[2021-01-06] MEDS: Aspirin 81 MG TAB.CHEW PO (08:16)
[2021-01-06] MEDS: metFORMIN HCl 1,000 MG Tablet 1000 MG PO ×2 (08:16→17:47)
[2021-01-06] MEDS: Clopidogrel Bisulfate 75 MG Tablet PO (08:17)
[2021-01-06] MEDS: Ezetimibe 10 MG Tablet PO (08:17)
[2021-01-06] MEDS: Sertraline 50 MG Tablet 25 MG PO (08:17)
[2021-01-06] MEDS: Nystatin Powder 15gm Bottle 1 APPLIC TOPICAL ×2 (08:18→22:58)
[2021-01-06 08:31] VITALS: BP 153/79; PULSE 69; RESP 16; TEMP 36.3; O2SAT 97
--- NOTE | 2021-01-06 09:38 | PCM.PN.BLA ---
Progress Note Afebrile VSS -systolic blood pressure is mildly elevated and has ranged from 141/60 8-1 60/77 for the past 3 days. The heart rate has come down with hydration. Maintaining appropriate oxygen saturation on RA Oral intake is poor. He took 720 cc by mouth yesterday. He received 1 L of IV fluid yesterday and an additional unit overnight. I&O yesterday was 1725/1800. Overnight the I&O was 1065/1050. I suspect the Hygroton is still working. Will need to continue the IV fluids until the urine OP decreases. Discussed with nursing - He c/o itchy burning eyes last night.......he gets this at home and uses NS to moisten his eyes. Reviewed the PT/OT/ST notes Medication list reviewed. All lab was personally reviewed. Sodium is 141 today and the potassium is down to 3.4 despite potassium in the IV. Serum bicarb is normal. The BUN is down to 36 from 49 yesterday and the creatinine today is 1.4, down from 2.08 yesterday. Calcium and phosphorus are within normal limits. Blood sugar record was reviewed. He had a borderline low glucose yesterday prior to supper at 78. FBS today is 93. The at bedtime blood sugar was 93. Physical Exam Const alert, oriented x3 and no apparent distress Constitutional Narrative: good energy. General Appearance: cooperative HEENT moist oral mucous membranes and oropharynx normal Eyes PERRL, EOMs intact bilaterally, conjunctivae normal, no scleral icterus and normal visual bedoya by confrontation Eyes Narrative: He has a few beats of horizontal nystagmus with eyes deviated far left. General Eye: normal appearance of both eyes and normal light reflex Chest Chest: symmetrical chest wall rise Resp normal respiratory effort, normal air movement, No no use of accessory muscles and clear to auscultation bilaterally Resp Narrative: He had some coarse crackles in the bases initially and they resolved after several deep breaths. Effort and Inspection: able to speak in complete sentences and symmetric chest movement Cardio regular rate, regular rhythm, S1 normal heart sound, S2 normal heart sound, no murmurs, no rub and no gallops GI normal to inspection, nondistended, normoactive bowel sounds, soft to palpation and non-tender GI Narrative: No guarding with palpation and he is having regular BM's Extremity General Extremity: Negative for clubbing Skin General Skin Exam: no breakdown Rashes: no rashes Neuro oriented x3 Psych thought process normal, cooperative, affect normal and activity/motor behavior normal Psych Narrative: Flat affect, no longer crying when I talk with him. Not much facial expression. Appearance: grossly normal, appropriate and well kempt Attitude: calm Activity / Motor Behavior: appropriate eye contact; Negative for psychomotor agitation, psychomotor slowing, fidgetting or restless Speech: normal speech Assessment & Plan Assessment/Plan (1) Physical debility: (2) Ischemic cerebrovascular accident (CVA): (3) Dysphagia: QUALIFIERS: Dysphagia type: oropharyngeal phase Qualified Code(s): R13.12 - Dysphagia, oropharyngeal phase (4) Facial droop due to acute stroke: (5) Acute left-sided muscle weakness: (6) Dysarthria: (7) HTN (hypertension): (8) Diabetes mellitus: (9) Proteinuria due to type 2 diabetes mellitus: (10) HLD (hyperlipidemia): (11) Hypomagnesemia: (12) Sleep-disordered breathing: (13) Restless legs: (14) Left shoulder pain: (15) Osteoarthritis: (16) Depression: (17) Normocytic normochromic anemia: PLAN: 1. Continue therapy 2. BS control is good. No hypoglycemic reactions Visit Charges Inpatient E&M: 24896 Subs Hosp L2
[2021-01-06 12:20] LABS: Bedside Glucose 147 mg/dL (70-110)
--- NOTE | 2021-01-06 12:31 | SP.MBSS_ITS ---
Modified Barium Swallow - Patient Information Study Date: 01/06/21 Study Time: 10:40 Direct Billable Minutes: 180 Total Minutes procedure & reportin Diagnosis: CVA Referring Physician: Umm Jung Reason for Referral: Concerns for aspiration/penetration Medical History: SHAISTA CLOUD, is a 80 YO M with a PMH of diabetes mellitus type 2, hypertension and recurrent right inguinal hernia who presented to the emergency department at [facility] on 12/31/2020 complaining of weakness in his left arm and left leg. CTB showed a right pontine round hypodensity measuring 6 mm most consistent with an old infarct. No acute findings. CTA of the head and neck showed a focal short segment occlusion of the distal right vertebral artery likely representing soft plaque or thrombus. There was scattered atherosclerotic plaque involving the distal left vertebral artery with mild luminal narrowing. Teleneurology was consulted and recommended MRI, ASA and Plavix along with a statin. He was admitted to [facility] for further evaluation. TTE showed mild concentric left ventricular hypertrophy with an ejection fraction of 65%. There was stage I diastolic dysfunction and no regional wall motion abnormalities. Bubble contrast was negative for right to left shunt. The pulmonary artery systolic pressure was estimated at 36 which is consistent with mild pulmonary hypertension. The right ventricle was normal size with normal systolic function. 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 He was transferred to the acute inpt rehab unit at [facility] on 01/02/21 for 3 hours of therapy daily to restore function at or near his prior level of function. MBSS performed today 2/2 concerns re: aspiration/penetration during PO intake. Current Diet Ordered: SBS/Thin Dentition: Natural Teeth Mental Status: WNL Respiratory Status: Oxygenating on Room Air - Penetration-Aspiration Scale Penetration-Aspiration Scale: OBJECTIVE ASSESSMENT OF SWALLOW FUNCTION (QUANTITATIVE ? PER TRIAL): PENETRATION / ASPIRATION SCALE (DUMONT): 1 = does not enter airway 2 = enters airway/above vocal folds/ejected 3 = enters airway/above vocal folds/not ejected 4 = enters airway/contacts vocal folds/ejected 5 = enters airway/contacts vocal folds/not ejected 6 = enters airway/below vocal folds/ejected 7 = enters airway/below vocal folds/not ejected despite effort 8 = enters airway/below vocal folds/no effort VIDEOFLOROSCOPIC SCALE SCORE (DUMONT): Grade I = aspiration of material that has penetrated into the laryngeal vestibule, intact cough reflex Grade II = aspiration < 10 % of the bolus, intact cough reflex Grade III = aspiration of < 10 % of the bolus, reduced cough reflex or aspiration of > 10 % of the bolus, intact cough reflex Grade IV = aspiration of > 10 % of the bolus, reduced cough reflex - Penetration-Aspiration Scale Score Thin Liquid via teaspoon Result: 5= enters airways/contacts vocal folds/not ejected - pre-prandial penetration of contrast to laryngeal vestibule Thin Liquid via teaspoon Trial 2 Result: 1= does not enter airway Thin Liquid via small single sip from cup Result: 5= enters airways/contacts vocal folds/not ejected - loss of bolus to floor of mouth; 1/2 of bolus remaining; pharyngeal swallow does not initiate w/ second swallow w/observed posterior escape of bolus; Pt benefited from cue to swallow Thin Liquid via sequential sips from cup Result: 5= enters airways/contacts vocal folds/not ejected - Pt demonstrating significantly reduced cough strength [place] Thick Liquid via small single sip from cup Result: 2= enter airway/above vocal folds/ejected Honey Thick Liquid via small single sip from cup Result: 1= does not enter airway - Increased pharyngeal residue present in the pyriform sinuses Pudding Result: 1= does not enter airway Pudding Trial 2 - Esophageal Screen Result: 1= does not enter airway 1/2 LornaDoone Cookie Result: 1= does not enter airway - < 1/2 of cookie bolus remaining in oral cavity. Thin Liquid via small single sip from cup Trial 2 Result: 4= enters airway/contacts vocal folds/ejected - Effortful swallow not effective; min esophageal retention noted; repetitive lingual movement on second swallow Thin Liquid via single sip from straw Result: 6= enters airway/below vocal folds/ejected - Contrast entering laryngeal vestibule w/noted pre-prandial aspiration prior to pharyngeal swallow initiation Thin Liquid via small single sip from cup Trial 3 Result: 7= enters airways/below vocal folds/not ejected despite effort - Effortful swallow not effective; delayed, weak, non-productive cough response [place] Thick Liquid via small single sip from cup Trial 2 Result: 1= does not enter airway - Oral Phase Labial Seal: No Labial Escape Tongue Control During Bolus Hold: Escape to lateral buccal cavity/floor of mouth Bolus Preparation/Mastication: Disorganized chewing/mashing with solid pieces of bolus unchewed Bolus Transport/Lingual Motion: Repetitive/disorganized tongue motion Oral Residue: Residue collection on oral structures - for liquid trials; during cookie trial, half of presented cookie was remaining. - Pharyngeal Phase Initiation of Pharyngeal Swallow: Bolus head in pyriforms - bolus head also observed to enter into laryngeal vestibule prior to initiation of swallow Soft Palate Elevation: Trace column of contrast/air between soft palate and pharyngeal wall Laryngeal Elevation: Partial superior movement thyroid cart/partial apprx aryt- epig petiole Anterior Hyoid Excursion: Partial anterior movement Epiglottic Movement: Partial inversion Laryngeal Vestibule Closure at Height of Swallow: Incomplete; narrow column of air/contrast in laryngeal vestibule Pharyngeal Stripping Wave: Present - diminished Pharyngoesophageal Segment Opening: Minimal distension and minimal duration; marked obstruction of flow - Observed majority pharyngeal residue at PES Tongue Base Retraction: Trace column of contrast between tongue base & post. pharyngeal wall Pharyngeal Residue: Collection of residue within or on pharyngeal structures - Esophageal Phase Esophageal Clearance: Esophageal retention - Suspect only at the level of the PES. During esophageal screen no retention or retrograde flow was observed. - Treatment Strategies Effects of treatment strategies attemped:: Chin Tuck: NOT EFFECTIVE Cued Cough: NOT EFFECTIVE Reduced Bolus Size: EFFECTIVE Effortful Swallow: NOT EFFECTIVE, likely d/t Pt's reduced ability to initiate timely swallow; trial again following implementation of oropharyngeal exercise p rogram - Diagnosis/Impression Diagnosis: Moderately-Severe Oropharyngeal Dysphagia Impression: The oral phase is primarily marked by: * Loss of bolus to floor of mouth * Poor lingual control, uncoordinated, lingual pumping to transfer bolus to oropharynx * Swallow onset delay resulting in posterior loss of bolus * Poor oral clearance of solids and liquids resulting in collection of oral residues * Significant weakness in initiating second swallow w/ repetitive, uncoordinated, lingual pumping motion of tongue base * Inattention to remaining ? of cookie bolus in oral cavity and benefited from mod verbal and repetition cues to initiate swallow. The pharyngeal phase is primarily marked by: * Weak and untimely tongue base retraction and pharyngeal stripping wave coupled with significantly reduced hyoid excursion and laryngeal elevation resulting in reduced duration and distention of PES opening contributing to consistent collection of pharyngeal residue in the pyriform sinuses. Weak peristalsis of pharyngeal stripping wave appears to initiate late at the tip of the epiglottis and end prior to the PES opening. * Significant pharyngeal swallow delay resulting in untimely laryngeal vestibule closure w/pre-prandial aspiration of contrast. Bolus head also reaching the pyriform sinuses prior to pharyngeal swallow onset. * Pt presenting w/no cough response to any penetrated material throughout the study; however, during mary aspiration of thin liquid, Pt demonstrated a significantly weak, non-productive post-prandial cough. The esophageal phase is characterized by: * Noted esophageal retention of contrast in the upper third of the esophagus. Diet Recommended: Minced and Moist (IDDSI:5) / Mildly Thick Liquid (IDDSI:2) * Pt expressing preference for minced and moist textures over current soft and bite sized solids Compensatory Strategies Recommended: 1:1 distant supervision (sitting in dining room), liquids by cup only, NO STRAWS, small bites, slow rate of intake, double swallows for every bite/drink, seated upright at 90 degrees during PO intake, remain upright for 30-60 minutes post meal (GERD precaution), use of effortful swallow (following initiation of oropharyngeal exercises) Need for Repeat MBS: YES, prior to advancement to thin liquids Additional Speech Therapy Services Recommended to Address: * patient and family education re: findings * education re: risks/benefits associated w/aspiration/penetration of thin liquids and alteration of current least restrictive diet involving thickening liquids * implementation of compensatory strategies and GERD precautions to reduce aspiration risk * skilled meal analysis to assess tolerance w/ use of compensatory strategies * oral motor and oropharyngeal strengthening exercise program to improve oral and pharyngeal phase swallow onset timing, laryngeal vestibule closure/pressure, hyolaryngeal excursion and elevation, and PES duration and distention Education Completed: Images were reviewed w/ the patient following MBSS conclusion. Education provided re: findings and recommendations. Pt expressed understanding re: reasoning for thickening liquids at this time. Speech therapy discussed results of MBSS w/nursing, diet changed in Pt?s chart and in inpatient rehab dining area. - Status Active ST Patient: Active - Contact Information [facility] Speech Therapy:: Theodora Boone M.S., CF-[employer] FORM COVERER [facility] [address] [place] [address] [email or web address] 01/06/21 17:48
[2021-01-06 14:43] VITALS: BMI 24.8
[2021-01-06 17:25] LABS: Bedside Glucose 120 mg/dL (70-110)
[2021-01-06] MEDS: Glycerin/Hypromellose/PEG400 15 ml Bottle 1 DRP EACH EYE (17:51)
[2021-01-06 17:55] VITALS: BP 156/70; PULSE 66
[2021-01-06 20:05] VITALS: BP 155/65; PULSE 67; RESP 16; TEMP 36.7; O2SAT 98
[2021-01-06 22:00] VITALS: PULSE 97; RESP 16
[2021-01-06 22:26] LABS: Bedside Glucose 124 mg/dL (70-110)
[2021-01-06] MEDS: Latanoprost 0.005% 1 Bottle 1 DRP EACH EYE (22:59)
[2021-01-06] MEDS: Losartan Potassium 100 MG Tablet PO (22:59)
[2021-01-06] MEDS: Gabapentin 100 MG Capsule 200 MG PO (22:59)
[2021-01-07] MEDS: cloNIDine HCl 0.1 MG Tablet PO (01:11)
[2021-01-07] MEDS: Glycerin/Hypromellose/PEG400 15 ml Bottle 1 DRP EACH EYE (04:52)
[2021-01-07] MEDS: Enoxaparin 40 MG/0.4 ML Syringe SC (04:52)
[2021-01-07 05:06] LABS: Bedside Glucose 70 mg/dL (70-110)
[2021-01-07 07:26] VITALS: BP 151/74; PULSE 61; RESP 16; TEMP 36.3; O2SAT 95
[2021-01-07] MEDS: Senna/Docusate Sodium 1 Tablet 2 TABLET PO (09:11)
[2021-01-07] MEDS: metFORMIN HCl 1,000 MG Tablet 1000 MG PO ×2 (09:12→16:44)
[2021-01-07] MEDS: Aspirin 81 MG TAB.CHEW PO (09:12)
[2021-01-07] MEDS: Multivitamins,Ther W-Minerals Tablet 1 TABLET PO (09:12)
[2021-01-07] MEDS: Ezetimibe 10 MG Tablet PO (09:12)
[2021-01-07] MEDS: Clopidogrel Bisulfate 75 MG Tablet PO (09:12)
[2021-01-07] MEDS: Sertraline 50 MG Tablet 25 MG PO (09:12)
[2021-01-07] MEDS: amLODIPine 10 MG Tablet PO (09:12)
[2021-01-07] MEDS: Nystatin Powder 15gm Bottle 1 APPLIC TOPICAL ×2 (09:20→21:20)
[2021-01-07 11:20] LABS: Bedside Glucose 133 mg/dL (70-110)
[2021-01-07 13:29] VITALS: BMI 24.8
[2021-01-07 16:56] LABS: Bedside Glucose 146 mg/dL (70-110)
[2021-01-07 19:25] VITALS: BP 111/72; PULSE 74; RESP 16; TEMP 36.2; O2SAT 95
[2021-01-07] MEDS: 0.9% Saline Lock 10 ML Syringe IV (20:26)
[2021-01-07] MEDS: Gabapentin 100 MG Capsule 200 MG PO (21:20)
[2021-01-07] MEDS: Losartan Potassium 100 MG Tablet PO (21:20)
[2021-01-07] MEDS: Latanoprost 0.005% 1 Bottle 1 DRP EACH EYE (21:21)
[2021-01-07 21:40] LABS: Bedside Glucose 144 mg/dL (70-110)
[2021-01-08 01:29] VITALS: BMI 24.8
[2021-01-08] MEDS: Enoxaparin 40 MG/0.4 ML Syringe SC (06:20)
[2021-01-08 06:45] LABS: Bedside Glucose 85 mg/dL (70-110)
[2021-01-08] MEDS: 0.9% Saline Lock 10 ML Syringe IV (07:13)
[2021-01-08 08:00] VITALS: BP 171/71; PULSE 66; RESP 18; TEMP 36.5; O2SAT 95
[2021-01-08 08:30] VITALS: BP 148/72
[2021-01-08] MEDS: Sertraline 50 MG Tablet 25 MG PO (08:34)
[2021-01-08] MEDS: Aspirin 81 MG TAB.CHEW PO (08:34)
[2021-01-08] MEDS: amLODIPine 10 MG Tablet PO (08:35)
[2021-01-08] MEDS: Multivitamins,Ther W-Minerals Tablet 1 TABLET PO (08:35)
[2021-01-08] MEDS: Clopidogrel Bisulfate 75 MG Tablet PO (08:35)
[2021-01-08] MEDS: Ezetimibe 10 MG Tablet PO (08:35)
[2021-01-08] MEDS: metFORMIN HCl 1,000 MG Tablet 1000 MG PO ×2 (08:36→17:08)
[2021-01-08 12:25] LABS: Bedside Glucose 142 mg/dL (70-110)
[2021-01-08 17:00] VITALS: BMI 24.8
[2021-01-08] MEDS: Insulin Lispro 100 UNIT/ML INSULN.PEN SC (17:09)
[2021-01-08 17:20] LABS: Bedside Glucose 172 mg/dL (70-110)
[2021-01-08 19:35] VITALS: BP 173/92; PULSE 78; RESP 16; TEMP 36.7; O2SAT 96
[2021-01-08] MEDS: cloNIDine HCl 0.1 MG Tablet PO (19:56)
[2021-01-08] MEDS: Gabapentin 100 MG Capsule 200 MG PO (20:00)
--- NOTE | 2021-01-08 20:09 | PCM.PN.BLA ---
Progress Note Afebrile VSS Maintaining appropriate oxygen saturation on RA Oral intake is improving Discussed with nursing - no problems that need addressed. He is sleeping better now Reviewed the PT/OT/ST notes Medication list reviewed. Francisco denies chest pain, shortness of breath, cough, dysuria, abdominal pain, nausea/vomiting, lightheadedness, diplopia, cephalgia. Physical Exam Const alert, oriented x3 and no apparent distress HEENT moist oral mucous membranes Resp normal respiratory effort and clear to auscultation bilaterally Cardio regular rate, regular rhythm and no gallops GI normal to inspection, nondistended, normoactive bowel sounds, soft to palpation and non-tender Extremity no calf tenderness Extremity Narrative: has pitting edema of the ankles only. NEY hose are in place. Skin General Skin Exam: no breakdown Rashes: no rashes Assessment & Plan Assessment/Plan (1) Sleep-disordered breathing: (2) CVA (cerebral vascular accident): (3) Dysphagia: QUALIFIERS: Dysphagia type: oropharyngeal phase Qualified Code(s): R13.12 - Dysphagia, oropharyngeal phase (4) Restless legs: (5) Physical debility: (6) Diabetes mellitus: PLAN: 1. Continue therapy 2. affect is more upbeat and he is not as falt. Continue the Sertraline 3. Family training prior to DC 4. Sleep study post DC 5. 30 day event monitor at DC. Visit Charges Inpatient E&M: 99004 Subs Hosp L2
[2021-01-08] MEDS: Gabapentin 100 MG Capsule PO (21:32)
[2021-01-08] MEDS: Nystatin Powder 15gm Bottle 1 APPLIC TOPICAL (21:35)
[2021-01-08] MEDS: Losartan Potassium 100 MG Tablet PO (21:35)
[2021-01-08 21:36] LABS: Bedside Glucose 153 mg/dL (70-110)
[2021-01-08] MEDS: Latanoprost 0.005% 1 Bottle 1 DRP EACH EYE (21:36)
[2021-01-09 01:20] VITALS: BMI 24.8
[2021-01-09] MEDS: Enoxaparin 40 MG/0.4 ML Syringe SC (05:17)
[2021-01-09] MEDS: Nystatin Powder 15gm Bottle 1 APPLIC TOPICAL ×2 (05:17→20:17)
[2021-01-09] MEDS: cloNIDine HCl 0.1 MG Tablet PO ×2 (05:17→20:22)
[2021-01-09 05:18] VITALS: BP 172/83; PULSE 71
[2021-01-09 06:46] LABS: Bedside Glucose 119 mg/dL (70-110)
--- NOTE | 2021-01-09 07:00 | NURSING ---
REVIEWED AND AGREE WITH BEHAVIORAL CONSULTANT'S FUNCTIONAL ASSESSMENT AND HANDOFF CHARTING.
[2021-01-09 08:40] VITALS: BP 149/58; PULSE 75; RESP 18; TEMP 36.6; O2SAT 95
[2021-01-09] MEDS: metFORMIN HCl 1,000 MG Tablet 1000 MG PO ×2 (08:56→17:14)
[2021-01-09] MEDS: Clopidogrel Bisulfate 75 MG Tablet PO (08:56)
[2021-01-09] MEDS: Aspirin 81 MG TAB.CHEW PO (08:56)
[2021-01-09] MEDS: Gabapentin 100 MG Capsule PO (08:56)
[2021-01-09] MEDS: NIFEdipine 30 MG Tablet PO (08:56)
[2021-01-09] MEDS: Sertraline 50 MG Tablet 25 MG PO (08:56)
[2021-01-09] MEDS: Ezetimibe 10 MG Tablet PO (08:56)
[2021-01-09] MEDS: Multivitamins,Ther W-Minerals Tablet 1 TABLET PO (08:58)
[2021-01-09 11:11] LABS: Bedside Glucose 152 mg/dL (70-110)
[2021-01-09] MEDS: 0.9% Saline Lock 10 ML Syringe IV (11:12)
[2021-01-09 15:57] VITALS: BMI 24.8
[2021-01-09 16:30] LABS: Bedside Glucose 105 mg/dL (70-110)
--- NOTE | 2021-01-09 16:41 | PN_ITS ---
Progress Note Afebrile Blood pressure last evening was 173/92 and at 5 AM this morning it was 172/83. At 840 it was 149/58. He denies lightheadedness. Heart rate is within normal limits. He is maintaining appropriate oxygen saturation on room air. He is wearing oxygen at night now due to the ABNormal overnight trending pulse ox. Still with poor oral intake. Will discontinue IV fluids today and see if his intake improves. The urine output is finally decreasing as the chlorthalidone is being eliminated from his system. Blood sugars are well controlled with no hypoglycemia. No blood sugars greater than 180. Physical Exam Const alert, oriented x3 and no apparent distress Constitutional Narrative: Working hard in therapy and making steady improvement General Appearance: cooperative Resp normal respiratory effort and clear to auscultation bilaterally Cardio regular rate, regular rhythm and no gallops GI normal to inspection, nondistended, normoactive bowel sounds, soft to palpation and non-tender Extremity no calf tenderness and no pedal edema Skin General Skin Exam: no breakdown Rashes: no rashes Assessment & Plan Assessment/Plan (1) Ischemic cerebrovascular accident (CVA): PLAN: 1. Check a BMP and a magnesium on Tuesday 2. continue threapy 3. Continue the current drug regimen Visit Charges Inpatient E&M: 28749 [facility] Hosp L1
[2021-01-09] MEDS: Gabapentin 300 MG Capsule PO (20:17)
[2021-01-09] MEDS: Losartan Potassium 100 MG Tablet PO (20:17)
[2021-01-09] MEDS: Latanoprost 0.005% 1 Bottle 1 DRP EACH EYE (20:18)
[2021-01-09] MEDS: Acetaminophen 325 MG Tablet 650 MG PO (20:24)
[2021-01-09 22:00] VITALS: BP 172/70; PULSE 72; RESP 18; TEMP 36.6; O2SAT 95
--- NOTE | 2021-01-10 02:00 | NURSING ---
Addendum entered by Rizwana Hirsch 01/10/21 02:05: wrong pt. Original Note: 1200; Pt called this nurse for pain meds stating his r leg is aching. Informed pt he is not due for meds for 1 more hour. Pt states pain in rle is a 8/10 and states he would like med as soon as able. This nurse repositioned pt and elevated rle on pillow. Pt refused polar care. 0125; Took pain meds into pt. He states pain has settled down and he will wait to take further meds
[2021-01-10 02:15] VITALS: BMI 24.8
--- NOTE | 2021-01-10 03:45 | NURSING ---
0345 am; Recheck on BP 140/76 manual on r arm.
[2021-01-10] MEDS: Enoxaparin 40 MG/0.4 ML Syringe SC (05:30)
[2021-01-10] MEDS: Nystatin Powder 15gm Bottle 1 APPLIC TOPICAL ×2 (06:10→20:09)
[2021-01-10 06:50] LABS: Bedside Glucose 88 mg/dL (70-110)
[2021-01-10 08:25] VITALS: BP 146/70; PULSE 61; RESP 18; TEMP 36.3; O2SAT 94
[2021-01-10] MEDS: metFORMIN HCl 1,000 MG Tablet 1000 MG PO ×2 (09:01→17:25)
[2021-01-10] MEDS: Gabapentin 100 MG Capsule PO (09:01)
[2021-01-10] MEDS: Aspirin 81 MG TAB.CHEW PO (09:01)
[2021-01-10] MEDS: Multivitamins,Ther W-Minerals Tablet 1 TABLET PO (09:02)
[2021-01-10] MEDS: Sertraline 50 MG Tablet 25 MG PO (09:37)
[2021-01-10] MEDS: Ezetimibe 10 MG Tablet PO (09:37)
[2021-01-10] MEDS: Clopidogrel Bisulfate 75 MG Tablet PO (09:38)
[2021-01-10] MEDS: NIFEdipine 30 MG Tablet PO (09:38)
[2021-01-10 12:46] VITALS: BMI 24.8
[2021-01-10 16:01] LABS: Bedside Glucose 122 mg/dL (70-110)
[2021-01-10 19:23] VITALS: BP 139/69; PULSE 63; RESP 16; TEMP 36.8; O2SAT 98
[2021-01-10] MEDS: Losartan Potassium 100 MG Tablet PO (20:08)
[2021-01-10] MEDS: Latanoprost 0.005% 1 Bottle 1 DRP EACH EYE (20:08)
[2021-01-10] MEDS: Gabapentin 300 MG Capsule PO (20:08)
[2021-01-10 21:30] VITALS: BMI 24.8
[2021-01-11] MEDS: Enoxaparin 40 MG/0.4 ML Syringe SC (05:31)
[2021-01-11 05:50] LABS: Bedside Glucose 94 mg/dL (70-110)
[2021-01-11] MEDS: Nystatin Powder 15gm Bottle 1 APPLIC TOPICAL ×2 (07:11→20:09)
[2021-01-11 07:12] VITALS: BP 152/69; PULSE 69; RESP 18; TEMP 36.8; O2SAT 93
[2021-01-11] MEDS: cloNIDine HCl 0.1 MG Tablet PO (08:28)
[2021-01-11] MEDS: Ezetimibe 10 MG Tablet PO (08:28)
[2021-01-11] MEDS: Multivitamins,Ther W-Minerals Tablet 1 TABLET PO (08:28)
[2021-01-11] MEDS: Gabapentin 100 MG Capsule PO (08:28)
[2021-01-11] MEDS: Sertraline 50 MG Tablet 25 MG PO (08:29)
[2021-01-11] MEDS: Clopidogrel Bisulfate 75 MG Tablet PO (08:29)
[2021-01-11] MEDS: metFORMIN HCl 1,000 MG Tablet 1000 MG PO ×2 (08:30→16:25)
[2021-01-11] MEDS: NIFEdipine 30 MG Tablet PO (08:31)
[2021-01-11] MEDS: Aspirin 81 MG TAB.CHEW PO (08:31)
[2021-01-11 14:39] VITALS: BMI 24.8
[2021-01-11 16:15] LABS: Bedside Glucose 167 mg/dL (70-110)
[2021-01-11 19:25] VITALS: BP 154/69; PULSE 67; RESP 16; TEMP 36.3; O2SAT 97
[2021-01-11] MEDS: Losartan Potassium 100 MG Tablet PO (20:08)
[2021-01-11] MEDS: Latanoprost 0.005% 1 Bottle 1 DRP EACH EYE (20:09)
[2021-01-11] MEDS: Gabapentin 300 MG Capsule PO (20:09)
[2021-01-12 01:06] VITALS: BMI 24.8
[2021-01-12] MEDS: Enoxaparin 40 MG/0.4 ML Syringe SC (05:18)
[2021-01-12] MEDS: Nystatin Powder 15gm Bottle 1 APPLIC TOPICAL ×2 (05:21→22:03)
[2021-01-12 06:10] LABS: Bedside Glucose 90 mg/dL (70-110)
[2021-01-12 06:39] LABS: Anion Gap 5 (5-15); BUN 24 mg/dL (7-18); BUN/Creat Ratio 21.6 RATIO (10-20); Calcium,Total 8.7 mg/dL (8.5-10.1); Chloride 103 mmol/L (98-107); Creatinine, Serum 1.11 mg/dL (0.70-1.30); EST Glomerular Filtration Rate 68 mL/min (>60); Est Glom Filt Rate - Afr Amer 82 mL/min (>60); Estimated Creatinine Clearance 57.29 ml/min; Glucose 95 mg/dL (74-106); Magnesium 1.6 mg/dL (1.6-2.6); Potassium 3.9 mmol/L (3.5-5.1); Sodium Level 138 mmol/L (136-145)
[2021-01-12] MEDS: Sertraline 50 MG Tablet 25 MG PO (07:28)
[2021-01-12] MEDS: Aspirin 81 MG TAB.CHEW PO (07:28)
[2021-01-12] MEDS: Clopidogrel Bisulfate 75 MG Tablet PO (07:28)
[2021-01-12] MEDS: metFORMIN HCl 1,000 MG Tablet 1000 MG PO (07:28)
[2021-01-12] MEDS: NIFEdipine 30 MG Tablet PO ×2 (07:28→12:56)
[2021-01-12] MEDS: Multivitamins,Ther W-Minerals Tablet 1 TABLET PO (07:29)
[2021-01-12] MEDS: Ezetimibe 10 MG Tablet PO (07:31)
[2021-01-12] MEDS: Acetaminophen 325 MG Tablet 650 MG PO (07:32)
[2021-01-12 07:44] VITALS: BP 152/69; PULSE 71; RESP 16; TEMP 36.8; O2SAT 97
[2021-01-12 09:18] VITALS: O2SAT 97
[2021-01-12] MEDS: Gabapentin 100 MG Capsule PO ×2 (10:13→22:02)
[2021-01-12] MEDS: cloNIDine HCl 0.1 MG Tablet PO ×2 (11:20→20:50)
[2021-01-12 11:21] VITALS: BP 160/68; PULSE 62
--- NOTE | 2021-01-12 12:08 | PN_ITS ---
Progress Note Francisco was seen on team rounds today. His and daughter were in attendance in the room. All questions were answered. Afebrile VSS - systolic BP consistently above goal. Diastolics are within normal limits. HR is mostly in the 70's. Maintaining appropriate oxygen saturation on RA Oral intake is good The blood sugar record was reviewed. He has had no hypoglycemia but the fasting blood sugars are on the low side, less than 100. Discussed with nursing - no problems that need addressed Reviewed the PT/OT/ST notes. He has been progressing with all therapy. Was started on Jameson water protocol. Needing less VC's. Still no movement in the LUE. Was able to dress his upper body today after his left arm was threaded into the sleeve. TONY is in a sling when he is with therapy. Has ambulated up to 80 ft with the ana-walker. Medication list reviewed. All lab from today was personally reviewed. Sodium, potassium and bicarb are all within normal limits. The BUN is 24 and the creatinine is down to 1.11 from 2.08 on 01/05/2021. His fluid intake has increased significantly over the past 4 to 5 days. The BUN/creatinine ratio is still elevated at 21.6. Magnesium is low at 1.6 today. He is complaining of restless leg and his family has noticed that after supper his legs are very jumpy. He tells me that he is sleeping bet ter.....up to 5 hours at a time which is a good improvement. His family has noticed that he seems a little short of breath at times. Speech therapy has been working with him on breath control. He has no cough and he denies shortness of breath. He denies chest pain, calf pain, nausea/vomiting/abdominal pain, dysuria, lightheadedness and palpitations. Physical Exam Const alert, oriented x3 and well nourished Constitutional Narrative: He was eating his lunch when he was seen on rounds. As I watched him he continues to pocket food in the left cheek and he does not consistently swallow prior to taking another bite. Affect is still flat. General Appearance: cooperative and well developed Eyes PERRL, EOMs intact bilaterally, conjunctivae normal, no scleral icterus and normal visual bedoya by confrontation Eyes Narrative: He is not having trouble seeing BUT, he is having some L visual neglect which persists. Neck Neck Narrative: Brisk carotid upstroke with excellent pulse volume General: trachea midline Resp no use of accessory muscles and clear to auscultation bilaterally Resp Narrative: He has no tachypnea and no conversational dyspnea. Effort is moderate. No wheezing, rales or rhonchi. Effort and Inspection: able to speak in complete sentences and symmetric chest movement Cardio regular rate, regular rhythm, S1 normal heart sound, S2 normal heart sound, no murmurs, no rub and no gallops GI normal to inspection, nondistended, normoactive bowel sounds, soft to palpation and non-tender GI Narrative: No guarding with palpation. No hepatosplenomegaly. Extremity no clubbing, cyanosis or edema and no calf tenderness Extremity Narrative: Negative Bi's and Kaity's signs. Very small amount of ankle edema and this may be a side effect of the dihydropyridine calcium channel wilmer being used for hypertension. Skin Skin Narrative: No rashes, no skin breakdown. Neuro oriented x3 Neuro Narrative: Left facial droop. L arm is still flaccid. Tends to lean to the left when he is ambulating but, he is able to correct most of the time without VC's Mild dysarthria. Psych affect normal Psych Narrative: Flat affect, no longer crying when I talk with him. Not much facial expression. Appearance: grossly normal Assessment & Plan Assessment/Plan (1) Physical debility: (2) Ischemic cerebrovascular accident (CVA): (3) Acute left-sided muscle weakness: (4) Dysarthria: (5) Facial droop due to acute stroke: (6) Diabetes mellitus: (7) Restless legs: (8) Sleep-disordered breathing: (9) Depression: (10) HTN (hypertension): (11) Hypomagnesemia: PLAN: 1. Change the gabapentin to 100 mg twice daily and continue 300 mg at at bedtime. 2. Decrease Metformin to 500 mg with supper 3. Increase Procardia XL to 60 mg daily and give an extra 30 mg now for a total of 60 mg today. 4. Add a magnesium supplement to keep the magnesium around 2 5. Increase sertraline to 50 mg daily 6. Continue to encourage increased water intake. 7. Continue therapy Family wonders when he will be back to how he was prior to the stroke and I explained that is impossible to predict. It is a day by day process and not everyone recovers completely from a stroke. They were given a list of area doctors accepting new patients and have decided to follow up with Dr. Nunn. Visit Charges Inpatient E&M: 22454 Subs Hosp L2
[2021-01-12 12:58] VITALS: BMI 24.8
--- NOTE | 2021-01-12 16:05 | CASEMGMT ---
Social Work IDT met with patient, and dtr for Team meeting. Discussed patient's progress in therapy and nursing. Pt is on altered diet. Is new on O2 at night. ordering sleep study at [place]. SW to assist with coordination[facility] and continued stay is not guaranteed. The goal is for pt to return home PLOF and where can assist. She is petite and pt should be CGA. 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 Will ReTeam next week. Will continue to follow. Tiffanie Meyers, OB/GYN PHYSICIAN [employer]
[2021-01-12 16:10] LABS: Bedside Glucose 158 mg/dL (70-110)
[2021-01-12] MEDS: metFORMIN HCl 500 MG Tablet PO (18:15)
[2021-01-12] MEDS: Magnesium Chloride 64 MG Delay Rel.Tablet 128 MG PO (18:15)
[2021-01-12] MEDS: Gabapentin 300 MG Capsule PO (20:41)
[2021-01-12 20:48] VITALS: BP 169/67; PULSE 66; RESP 16; TEMP 36.8; O2SAT 98
[2021-01-12] MEDS: Losartan Potassium 100 MG Tablet PO (22:02)
[2021-01-12] MEDS: Latanoprost 0.005% 1 Bottle 1 DRP EACH EYE (22:04)
[2021-01-13 01:30] VITALS: BMI 24.8
[2021-01-13] MEDS: Enoxaparin 40 MG/0.4 ML Syringe SC (05:41)
[2021-01-13] MEDS: Nystatin Powder 15gm Bottle 1 APPLIC TOPICAL ×2 (05:42→22:06)
[2021-01-13 05:51] LABS: Bedside Glucose 88 mg/dL (70-110)
[2021-01-13] MEDS: Acetaminophen 325 MG Tablet 650 MG PO (06:32)
[2021-01-13 07:30] VITALS: BP 145/70; PULSE 62; RESP 18; TEMP 36.4; O2SAT 100
[2021-01-13] MEDS: Magnesium Chloride 64 MG Delay Rel.Tablet 128 MG PO (08:16)
[2021-01-13] MEDS: Clopidogrel Bisulfate 75 MG Tablet PO (08:16)
[2021-01-13] MEDS: metFORMIN HCl 1,000 MG Tablet 1000 MG PO (08:16)
[2021-01-13] MEDS: Multivitamins,Ther W-Minerals Tablet 1 TABLET PO (08:16)
[2021-01-13] MEDS: Aspirin 81 MG TAB.CHEW PO (08:16)
[2021-01-13] MEDS: Sertraline 50 MG Tablet PO (08:17)
[2021-01-13] MEDS: Ezetimibe 10 MG Tablet PO (08:17)
[2021-01-13] MEDS: Gabapentin 100 MG Capsule PO ×2 (08:17→22:06)
[2021-01-13] MEDS: NIFEdipine 60 MG Tablet PO (08:17)
[2021-01-13 12:13] VITALS: BMI 24.8
[2021-01-13] MEDS: cloNIDine HCl 0.1 MG Tablet PO (16:51)
[2021-01-13] MEDS: metFORMIN HCl 500 MG Tablet PO (16:51)
[2021-01-13 16:54] VITALS: BP 170/68; PULSE 65
[2021-01-13 17:05] LABS: Bedside Glucose 103 mg/dL (70-110)
[2021-01-13 20:30] VITALS: BP 170/68; PULSE 71; PULSE 95; RESP 18; TEMP 36; O2SAT 95; BMI 24.8
[2021-01-13] MEDS: Glycerin/Hypromellose/PEG400 15 ml Bottle 1 DRP EACH EYE (20:32)
[2021-01-13] MEDS: Gabapentin 300 MG Capsule PO (20:32)
[2021-01-13 22:00] VITALS: BP 159/73; PULSE 71
[2021-01-13] MEDS: Losartan Potassium 100 MG Tablet PO (22:06)
[2021-01-13] MEDS: Latanoprost 0.005% 1 Bottle 1 DRP EACH EYE (22:06)
[2021-01-14] MEDS: Enoxaparin 40 MG/0.4 ML Syringe SC (05:00)
[2021-01-14] MEDS: Nystatin Powder 15gm Bottle 1 APPLIC TOPICAL ×2 (05:00→21:33)
[2021-01-14 05:51] LABS: Bedside Glucose 96 mg/dL (70-110)
[2021-01-14 06:00] VITALS: BP 138/59; BP 144/69; BP 153/72; PULSE 62; PULSE 70
[2021-01-14 07:38] VITALS: BP 144/69; PULSE 70; RESP 17; TEMP 36.7; O2SAT 97
[2021-01-14] MEDS: Aspirin 81 MG TAB.CHEW PO (09:40)
[2021-01-14] MEDS: Multivitamins,Ther W-Minerals Tablet 1 TABLET PO (09:41)
[2021-01-14] MEDS: metFORMIN HCl 1,000 MG Tablet 1000 MG PO (09:41)
[2021-01-14] MEDS: Magnesium Chloride 64 MG Delay Rel.Tablet 128 MG PO (09:41)
[2021-01-14] MEDS: Clopidogrel Bisulfate 75 MG Tablet PO (09:41)
[2021-01-14] MEDS: Gabapentin 100 MG Capsule PO ×2 (09:41→21:33)
[2021-01-14] MEDS: Sertraline 50 MG Tablet PO (09:42)
[2021-01-14] MEDS: Ezetimibe 10 MG Tablet PO (09:42)
[2021-01-14] MEDS: NIFEdipine 60 MG Tablet PO (09:42)
[2021-01-14 16:05] LABS: Bedside Glucose 119 mg/dL (70-110)
[2021-01-14] MEDS: metFORMIN HCl 500 MG Tablet PO (18:07)
[2021-01-14 19:42] VITALS: BP 144/68; PULSE 62; RESP 16; TEMP 36.8; O2SAT 96
[2021-01-14] MEDS: Acetaminophen 325 MG Tablet 650 MG PO (20:01)
[2021-01-14] MEDS: Gabapentin 300 MG Capsule PO (20:01)
[2021-01-14] MEDS: Losartan Potassium 100 MG Tablet PO (21:28)
[2021-01-14] MEDS: Latanoprost 0.005% 1 Bottle 1 DRP EACH EYE (21:33)
[2021-01-15 02:58] VITALS: BMI 24.8
--- NOTE | 2021-01-15 03:22 | NURSING ---
REVIEWED AND AGREE WITH TETRYL BOILING TUB OPERATOR ASSESSMENT.
[2021-01-15] MEDS: Enoxaparin 40 MG/0.4 ML Syringe SC (05:47)
[2021-01-15] MEDS: Nystatin Powder 15gm Bottle 1 APPLIC TOPICAL ×2 (05:49→22:38)
[2021-01-15 05:56] VITALS: BP 162/80; BP 168/77; BP 182/80; PULSE 72; PULSE 74; PULSE 83
[2021-01-15 06:35] LABS: Bedside Glucose 92 mg/dL (70-110)
[2021-01-15] MEDS: cloNIDine HCl 0.1 MG Tablet PO ×2 (06:53→16:06)
[2021-01-15 07:30] VITALS: O2SAT 94
[2021-01-15 07:56] VITALS: BP 162/80; PULSE 74; RESP 18; TEMP 36.7; O2SAT 97
[2021-01-15] MEDS: Clopidogrel Bisulfate 75 MG Tablet PO (08:59)
[2021-01-15] MEDS: metFORMIN HCl 1,000 MG Tablet 1000 MG PO (08:59)
[2021-01-15] MEDS: Gabapentin 100 MG Capsule PO ×2 (08:59→22:36)
[2021-01-15] MEDS: Ezetimibe 10 MG Tablet PO (08:59)
[2021-01-15] MEDS: Aspirin 81 MG TAB.CHEW PO (08:59)
[2021-01-15] MEDS: NIFEdipine 60 MG Tablet PO (08:59)
[2021-01-15] MEDS: Multivitamins,Ther W-Minerals Tablet 1 TABLET PO (08:59)
[2021-01-15] MEDS: Magnesium Chloride 64 MG Delay Rel.Tablet 128 MG PO (08:59)
[2021-01-15] MEDS: Sertraline 50 MG Tablet PO (08:59)
[2021-01-15 09:19] VITALS: PULSE 61; RESP 18; O2SAT 94
[2021-01-15] MEDS: metFORMIN HCl 500 MG Tablet PO (16:05)
[2021-01-15 16:11] LABS: Bedside Glucose 128 mg/dL (70-110)
--- NOTE | 2021-01-15 17:46 | PCM.PN.BLA ---
Progress Note Afebrile VSS Maintaining appropriate oxygen saturation on RA Oral intake is less than I would like and nursing and therapists are offering water frequently. He is on Jameson water protocol now so hopefully this will help. Discussed with nursing - no problems that need addressed Reviewed the PT/OT/ST notes Medication list reviewed. Francisco tells me that he is sleeping better at night, approximately 4 to 5 hours, however he is still bothered by some restless legs. He denies chest pain, shortness of breath, hemoptysis, nausea/vomiting/abdominal pain, dysuria, lightheadedness, palpitations, cephalgia. Physical Exam Const alert and no apparent distress Constitutional Narrative: Affect is still somewhat flat. He appears comfortable sitting in the recliner chair and is very cooperative. HEENT HEENT Narrative: Mucous membranes are dry and there are no oral lesions noted. Eyes PERRL, EOMs intact bilaterally, conjunctivae normal and no scleral icterus Resp normal respiratory effort and clear to auscultation bilaterally Effort and Inspection: able to speak in complete sentences Cardio regular rate, regular rhythm and no gallops GI normal to inspection, nondistended, normoactive bowel sounds, soft to palpation and non-tender Extremity no calf tenderness Extremity Narrative: Trace ankle edema bilaterally. The edema in the left hand is improving with the compression glove and elevation. Skin General Skin Exam: no breakdown Rashes: no rashes Neuro Neuro Narrative: Left facial droop is more prominent. There is still no movement in the left upper extremity. The left lower extremity is getting stronger but he still has difficulty standing up from a seated position. Assessment & Plan Assessment/Plan (1) Physical debility: (2) Ischemic cerebrovascular accident (CVA): (3) Sleep-disordered breathing: (4) Restless legs: (5) Depression: (6) Proteinuria due to type 2 diabetes mellitus: (7) Diabetes mellitus: PLAN: 1. Add ropinirole at for persistent RLS 2. Sleep study at [place] 3. BS's are under good control on the current diet and medications. 4. continue therapy 5. I am hopeful that he will be able to go home at [place]. He is working very hard and making steady progress but, not strong enough yet for his to manage him at home and his dtr can not be there all the time. will bring the in for family training closer to anticipated [place] to see if she will be able to provide the assistance he will need to go home rather than an SNF. Visit Charges Inpatient E&M: 36475 Subs Hosp L2
[2021-01-15 20:09] VITALS: BP 137/64; PULSE 68; RESP 18; TEMP 36.4; O2SAT 97
[2021-01-15] MEDS: Gabapentin 300 MG Capsule PO (20:14)
[2021-01-15] MEDS: Pramipexole Di-HCl 0.125 MG Tablet PO (22:36)
[2021-01-15] MEDS: Losartan Potassium 100 MG Tablet PO (22:36)
[2021-01-15] MEDS: Latanoprost 0.005% 1 Bottle 1 DRP EACH EYE (22:36)
[2021-01-16 00:51] VITALS: BMI 24.8
[2021-01-16 04:58] VITALS: BP 173/80; BP 177/87; BP 186/84; PULSE 66; PULSE 70; PULSE 82
[2021-01-16] MEDS: cloNIDine HCl 0.1 MG Tablet PO ×2 (05:22→17:20)
[2021-01-16] MEDS: Enoxaparin 40 MG/0.4 ML Syringe SC (05:22)
[2021-01-16] MEDS: Nystatin Powder 15gm Bottle 1 APPLIC TOPICAL (05:23)
[2021-01-16 06:11] LABS: Bedside Glucose 107 mg/dL (70-110)
[2021-01-16] MEDS: Aspirin 81 MG TAB.CHEW PO (08:27)
[2021-01-16] MEDS: metFORMIN HCl 1,000 MG Tablet 1000 MG PO (08:28)
[2021-01-16] MEDS: Magnesium Chloride 64 MG Delay Rel.Tablet 128 MG PO (08:28)
[2021-01-16] MEDS: Multivitamins,Ther W-Minerals Tablet 1 TABLET PO (08:28)
[2021-01-16] MEDS: NIFEdipine 60 MG Tablet PO (08:29)
[2021-01-16] MEDS: Sertraline 50 MG Tablet PO (08:29)
[2021-01-16] MEDS: Ezetimibe 10 MG Tablet PO (08:29)
[2021-01-16] MEDS: Gabapentin 100 MG Capsule PO ×2 (08:29→22:17)
[2021-01-16] MEDS: Clopidogrel Bisulfate 75 MG Tablet PO (08:29)
[2021-01-16 08:51] VITALS: PULSE 62
[2021-01-16 08:58] VITALS: BP 122/64; PULSE 62; RESP 16; TEMP 36.5; O2SAT 98
[2021-01-16 15:55] VITALS: BMI 24.8
[2021-01-16 16:21] LABS: Bedside Glucose 158 mg/dL (70-110)
[2021-01-16] MEDS: metFORMIN HCl 500 MG Tablet PO (17:04)
[2021-01-16 20:15] VITALS: BP 162/66; PULSE 60; RESP 18; TEMP 36.7; O2SAT 98; BMI 24.8
[2021-01-16] MEDS: Losartan Potassium 100 MG Tablet PO (20:34)
[2021-01-16] MEDS: Gabapentin 300 MG Capsule PO (20:34)
[2021-01-16] MEDS: Glycerin/Hypromellose/PEG400 15 ml Bottle 1 DRP EACH EYE (20:34)
[2021-01-16 22:00] VITALS: BP 136/67; PULSE 66
[2021-01-16] MEDS: Latanoprost 0.005% 1 Bottle 1 DRP EACH EYE (22:16)
[2021-01-16] MEDS: Pramipexole Di-HCl 0.125 MG Tablet PO (22:17)
--- NOTE | 2021-01-17 03:21 | NURSING ---
REVIEWED AND AGREE WITH MANAGER EMERGENCY'S FUNCTIONAL ASSESSMENT AND HANDOFF CHARTING.
[2021-01-17] MEDS: Enoxaparin 40 MG/0.4 ML Syringe SC (05:21)
[2021-01-17] MEDS: Nystatin Powder 15gm Bottle 1 APPLIC TOPICAL ×2 (05:23→21:41)
[2021-01-17 06:26] LABS: Bedside Glucose 98 mg/dL (70-110)
[2021-01-17 07:33] VITALS: BP 147/74; PULSE 69; RESP 14; TEMP 36.3; O2SAT 97
[2021-01-17] MEDS: Multivitamins,Ther W-Minerals Tablet 1 TABLET PO (07:51)
[2021-01-17] MEDS: Gabapentin 100 MG Capsule PO ×2 (07:52→21:40)
[2021-01-17] MEDS: NIFEdipine 60 MG Tablet PO (07:52)
[2021-01-17] MEDS: Aspirin 81 MG TAB.CHEW PO (07:52)
[2021-01-17] MEDS: Magnesium Chloride 64 MG Delay Rel.Tablet 128 MG PO (07:52)
[2021-01-17] MEDS: Ezetimibe 10 MG Tablet PO (07:53)
[2021-01-17] MEDS: Sertraline 50 MG Tablet PO (07:53)
[2021-01-17] MEDS: Clopidogrel Bisulfate 75 MG Tablet PO (07:53)
[2021-01-17] MEDS: metFORMIN HCl 1,000 MG Tablet 1000 MG PO (07:54)
[2021-01-17 16:37] VITALS: O2SAT 97
[2021-01-17] MEDS: cloNIDine HCl 0.1 MG Tablet PO (16:39)
[2021-01-17] MEDS: metFORMIN HCl 500 MG Tablet PO (16:39)
[2021-01-17 17:00] VITALS: BMI 24.8
[2021-01-17 17:16] LABS: Bedside Glucose 138 mg/dL (70-110)
[2021-01-17 19:30] VITALS: BP 153/75; PULSE 71; RESP 14; TEMP 36.8; O2SAT 97; BMI 24.8
[2021-01-17] MEDS: Losartan Potassium 100 MG Tablet PO (20:08)
[2021-01-17] MEDS: Gabapentin 300 MG Capsule PO (20:08)
[2021-01-17] MEDS: Pramipexole Di-HCl 0.125 MG Tablet PO (21:40)
[2021-01-17] MEDS: Latanoprost 0.005% 1 Bottle 1 DRP EACH EYE (21:40)
[2021-01-17 21:45] VITALS: BP 153/75; PULSE 74
--- NOTE | 2021-01-17 22:53 | NURSING ---
pt bp was retaken at 2145 and was 153/75 with ap of 74. unable to give clonidine as per order d/t it wasn't time to give. pt bp was rechecked again at this time and was 138/69 with ap 69. clonidine was held. rn aware
[2021-01-17 23:05] VITALS: BP 138/69; PULSE 69
--- NOTE | 2021-01-18 02:18 | NURSING ---
Reviewed and agree with OIL TREATER charting and assessment.
[2021-01-18] MEDS: cloNIDine HCl 0.1 MG Tablet PO ×2 (05:25→19:38)
[2021-01-18] MEDS: Enoxaparin 40 MG/0.4 ML Syringe SC (05:25)
[2021-01-18 06:56] LABS: Bedside Glucose 108 mg/dL (70-110)
[2021-01-18] MEDS: Magnesium Chloride 64 MG Delay Rel.Tablet 128 MG PO (07:59)
[2021-01-18] MEDS: metFORMIN HCl 1,000 MG Tablet 1000 MG PO (07:59)
[2021-01-18] MEDS: Gabapentin 100 MG Capsule PO ×2 (07:59→22:02)
[2021-01-18] MEDS: Clopidogrel Bisulfate 75 MG Tablet PO (07:59)
[2021-01-18] MEDS: Multivitamins,Ther W-Minerals Tablet 1 TABLET PO (07:59)
[2021-01-18] MEDS: Aspirin 81 MG TAB.CHEW PO (07:59)
[2021-01-18] MEDS: Ezetimibe 10 MG Tablet PO (08:00)
[2021-01-18] MEDS: NIFEdipine 60 MG Tablet PO (08:00)
[2021-01-18] MEDS: Sertraline 50 MG Tablet PO (08:00)
[2021-01-18 08:14] VITALS: O2SAT 96
[2021-01-18 09:44] VITALS: BP 158/75; PULSE 66; RESP 16; TEMP 36.3; O2SAT 97
[2021-01-18] MEDS: Nystatin Powder 15gm Bottle 1 APPLIC TOPICAL (09:47)
[2021-01-18 13:21] VITALS: BMI 24.8
[2021-01-18] MEDS: metFORMIN HCl 500 MG Tablet PO (16:52)
[2021-01-18 17:15] LABS: Bedside Glucose 98 mg/dL (70-110)
[2021-01-18 19:00] VITALS: BP 152/75; PULSE 65; RESP 16; TEMP 36.4; O2SAT 96
[2021-01-18 19:30] VITALS: BP 166/68; PULSE 65; RESP 16; O2SAT 96; BMI 24.8
[2021-01-18] MEDS: Gabapentin 300 MG Capsule PO (19:37)
[2021-01-18] MEDS: Losartan Potassium 100 MG Tablet PO (19:37)
[2021-01-18] MEDS: Pramipexole Di-HCl 0.125 MG Tablet PO (22:02)
[2021-01-18] MEDS: Latanoprost 0.005% 1 Bottle 1 DRP EACH EYE (22:02)
[2021-01-18 22:18] VITALS: BP 160/75; PULSE 67
[2021-01-18 22:19] VITALS: BP 158/72
--- NOTE | 2021-01-18 22:19 | NURSING ---
bp rechecked and value was 166/68, ap 65 rn made aware that pt bp was still elevated even after taking clonidine. bp was also recheck manually per rn suggestion and bp was 168/72, will continue to monitor
--- NOTE | 2021-01-19 00:36 | NURSING ---
Reviewed and agree with STEVEDORE HOLD assessment.
[2021-01-19] MEDS: Enoxaparin 40 MG/0.4 ML Syringe SC (05:27)
[2021-01-19] MEDS: Nystatin Powder 15gm Bottle 1 APPLIC TOPICAL ×2 (05:27→20:51)
[2021-01-19 06:46] LABS: Bedside Glucose 95 mg/dL (70-110)
[2021-01-19 07:53] VITALS: BP 140/75; PULSE 57; RESP 14; TEMP 36.3; O2SAT 93
[2021-01-19] MEDS: Ezetimibe 10 MG Tablet PO (08:41)
[2021-01-19] MEDS: Sertraline 50 MG Tablet PO (08:41)
[2021-01-19] MEDS: Clopidogrel Bisulfate 75 MG Tablet PO (08:42)
[2021-01-19] MEDS: NIFEdipine 60 MG Tablet PO (08:42)
[2021-01-19] MEDS: Gabapentin 100 MG Capsule PO ×2 (08:42→20:54)
[2021-01-19] MEDS: Aspirin 81 MG TAB.CHEW PO (08:43)
[2021-01-19] MEDS: Magnesium Chloride 64 MG Delay Rel.Tablet 128 MG PO (08:43)
[2021-01-19] MEDS: Multivitamins,Ther W-Minerals Tablet 1 TABLET PO (08:43)
[2021-01-19] MEDS: metFORMIN HCl 1,000 MG Tablet 1000 MG PO (11:06)
--- NOTE | 2021-01-19 12:22 | PN_ITS ---
Progress Note Francisco was seen on team rounds today. His and dtr where present for rounds in the room. All questions were answered. Afebrile VSS-the blood pressure this morning was 140/75 but the majority of blood pressures prior to that are above goal. Maintaining appropriate oxygen saturation on RA The blood sugar record was reviewed. Blood sugars are under excellent control with no hypoglycemia. Discussed with nursing - no problems that need addressed Reviewed the PT/OT/ST notes Medication list reviewed. Francisco tells me that he slept very well last night and he is very happy with this. RLS seems to be controlled. He denies cough, SOB, calf pain, N/V, lightheadedness. He is getting stronger and ambulating longer distances but he gets very tired and then he has pain in the hip and knee. He is CGA. He still requires assistance at times for coming to stand. When he is not assisted he sometimes has to have 3 tries before he can stand up. No movement in the LUE. Physical Exam Const alert, oriented x3 and no apparent distress Constitutional Narrative: Sitting in the recliner. He is making good eye contact with the speaker today. He has more facial expression and is participating in the conversation more. Better modulation in his voice and he is not so flat. He is more upbeat today. HEENT HEENT Narrative: Mucous membranes are a little dry. Eyes PERRL, EOMs intact bilaterally, conjunctivae normal and no scleral icterus Resp normal respiratory effort and clear to auscultation bilaterally Resp Narrative: Gets a little tachypneic with ambulation due to exertion toward the end but, no accessory muscle use and he is able to finish. Effort and Inspection: able to speak in complete sentences Cardio regular rate, regular rhythm and no gallops GI normal to inspection, nondistended, normoactive bowel sounds, soft to palpation and non-tender Extremity no calf tenderness Extremity Narrative: The edema in the LUE is decreased. He does not have pedal edema. There is no difference in the calf or thigh size BL. Skin General Skin Exam: no breakdown Rashes: no rashes Assessment & Plan Assessment/Plan (1) Physical debility: PLAN: He is making steady progress-we will continue therapy. His and daughter will come in for family training tomorrow and I am hopeful that in another week or so he will be able to go home rather than to senior living (2) Ischemic cerebrovascular accident (CVA): (3) Acute left-sided muscle weakness: (4) HTN (hypertension): PLAN: Blood pressures are still almost constantly above goal. Will increase the Procardia XL to 90 mg daily and give an extra 30 mg now for a total of 90 mg today. (5) Diabetes mellitus: PLAN: Very well controlled. I suspect his BS's will go up a bit when he goes home because his diet will likely change. We have been over the goals for preventing future strokes and he is aware we want to keep the HGBA1C less than or equal to 7. (6) Hypomagnesemia: PLAN: He is now on a mag supplement and will recheck the mag level in the AM along with a CBC and BMP. (7) Depression: PLAN: Continue the Sertraline at 50mg daily. (8) Sleep-disordered breathing: PLAN: sleep study at [place] and follow up with pulmonary. (9) Restless legs: PLAN: controlled with Gabapentin and Pramipexole. Visit Charges Inpatient E&M: 83780 Subs Hosp L2
[2021-01-19] MEDS: NIFEdipine 30 MG Tablet PO (14:09)
--- NOTE | 2021-01-19 14:20 | CASEMGMT ---
Social Work IDT met with patient, and dtr for Team meeting. Discussed patient's progress in therapy and nursing. Explained [employer] insurance with NRD 01/19 and continued stay is not guaranteed. Unsure if pt will be safe at home with if insurance issues DC. Recommended family therapy training with and dtr to make the determination for home vs SNF. Explained SNF option and insurance may not cover. would prefer pt not DC to SNF. and dtr will complete therapy training 01/20. The goal is for pt to get sleep study at [place] - using night time O2. Will continue to follow. CONCHA Schmitt DIALYSIS CLINICAL MANAGER
[2021-01-19 14:49] VITALS: BMI 24.8
[2021-01-19 16:35] LABS: Bedside Glucose 133 mg/dL (70-110)
[2021-01-19] MEDS: metFORMIN HCl 500 MG Tablet PO (17:05)
[2021-01-19] MEDS: cloNIDine HCl 0.1 MG Tablet PO (17:08)
[2021-01-19] MEDS: Losartan Potassium 100 MG Tablet PO (20:52)
[2021-01-19] MEDS: Gabapentin 300 MG Capsule PO (20:53)
[2021-01-19] MEDS: Pramipexole Di-HCl 0.125 MG Tablet PO (20:53)
[2021-01-19] MEDS: Latanoprost 0.005% 1 Bottle 1 DRP EACH EYE (20:55)
[2021-01-19 22:00] VITALS: BP 175/73; PULSE 57; RESP 16; TEMP 36.6; O2SAT 94
[2021-01-20 05:31] LABS: Hematocrit 37.4 % (40-54); Hemoglobin 12.5 g/dL (13.0-16.5); Mean Corp Hgb Conc 33.4 g/dL (32-36); Mean Corpuscular Hgb 30.3 pg (27.0-32.0); Mean Corpuscular Volume 90.8 fL (80-94); Mean Platelet Vol. 10.2 fl (6.2-12.0); Platelet Count 277 K/mm3 (150-450); RBC Distribution Width CV 13.3 % (11.6-14.6); RBC Distribution Width SD 44.6 fl (35.1-43.9); Red Blood Count 4.12 M/mm3 (4.6-6.2); White Blood Count 8.5 K/mm3 (4.4-11.0)
[2021-01-20] MEDS: Nystatin Powder 15gm Bottle 1 APPLIC TOPICAL ×2 (05:38→20:49)
[2021-01-20] MEDS: Enoxaparin 40 MG/0.4 ML Syringe SC (05:38)
[2021-01-20 05:45] LABS: Anion Gap 5 (5-15); BUN 27 mg/dL (7-18); BUN/Creat Ratio 22.9 RATIO (10-20); Calcium,Total 8.9 mg/dL (8.5-10.1); Chloride 102 mmol/L (98-107); Creatinine, Serum 1.18 mg/dL (0.70-1.30); EST Glomerular Filtration Rate 63 mL/min (>60); Est Glom Filt Rate - Afr Amer 76 mL/min (>60); Estimated Creatinine Clearance 53.89 ml/min; Glucose 108 mg/dL (74-106); Magnesium 2.1 mg/dL (1.6-2.6); Sodium Level 138 mmol/L (136-145)
[2021-01-20 07:00] LABS: Bedside Glucose 108 mg/dL (70-110)
[2021-01-20] MEDS: Ezetimibe 10 MG Tablet PO (08:15)
[2021-01-20] MEDS: Senna/Docusate Sodium 1 Tablet 2 TABLET PO (08:15)
[2021-01-20] MEDS: Multivitamins,Ther W-Minerals Tablet 1 TABLET PO (08:15)
[2021-01-20] MEDS: Aspirin 81 MG TAB.CHEW PO (08:16)
[2021-01-20] MEDS: Magnesium Chloride 64 MG Delay Rel.Tablet 128 MG PO (08:16)
[2021-01-20] MEDS: NIFEdipine 30 MG Tablet 90 MG PO (08:16)
[2021-01-20] MEDS: Clopidogrel Bisulfate 75 MG Tablet PO (08:16)
[2021-01-20] MEDS: metFORMIN HCl 1,000 MG Tablet 1000 MG PO (08:16)
[2021-01-20] MEDS: Sertraline 50 MG Tablet PO (08:19)
[2021-01-20 08:53] VITALS: BP 153/74; PULSE 69; RESP 16; TEMP 36.4; O2SAT 98
[2021-01-20] MEDS: Gabapentin 100 MG Capsule PO ×2 (10:36→20:50)
[2021-01-20 15:40] VITALS: BMI 24.8
[2021-01-20 16:55] VITALS: BP 173/69
[2021-01-20] MEDS: cloNIDine HCl 0.1 MG Tablet PO (16:57)
[2021-01-20] MEDS: metFORMIN HCl 500 MG Tablet PO (16:57)
[2021-01-20 17:05] LABS: Bedside Glucose 182 mg/dL (70-110)
[2021-01-20] MEDS: Gabapentin 300 MG Capsule PO (20:48)
[2021-01-20] MEDS: Losartan Potassium 100 MG Tablet PO (20:48)
[2021-01-20] MEDS: Pramipexole Di-HCl 0.125 MG Tablet PO (20:49)
[2021-01-20] MEDS: Latanoprost 0.005% 1 Bottle 1 DRP EACH EYE (20:50)
[2021-01-20 22:00] VITALS: BP 173/69; PULSE 72; PULSE 74; RESP 17; TEMP 35.7; O2SAT 96; O2SAT 98
[2021-01-21 03:45] VITALS: BMI 24.8
[2021-01-21] MEDS: Enoxaparin 40 MG/0.4 ML Syringe SC (04:13)
[2021-01-21] MEDS: Nystatin Powder 15gm Bottle 1 APPLIC TOPICAL ×2 (04:13→22:10)
[2021-01-21 06:31] LABS: Bedside Glucose 117 mg/dL (70-110)
[2021-01-21 07:25] VITALS: O2SAT 98
[2021-01-21] MEDS: metFORMIN HCl 1,000 MG Tablet 1000 MG PO (07:39)
[2021-01-21] MEDS: Clopidogrel Bisulfate 75 MG Tablet PO (07:39)
[2021-01-21] MEDS: Ezetimibe 10 MG Tablet PO (07:39)
[2021-01-21] MEDS: Multivitamins,Ther W-Minerals Tablet 1 TABLET PO (07:39)
[2021-01-21] MEDS: Senna/Docusate Sodium 1 Tablet 2 TABLET PO (07:39)
[2021-01-21] MEDS: Aspirin 81 MG TAB.CHEW PO (07:39)
[2021-01-21] MEDS: Magnesium Chloride 64 MG Delay Rel.Tablet 128 MG PO (07:39)
[2021-01-21] MEDS: Sertraline 50 MG Tablet PO (07:39)
[2021-01-21] MEDS: NIFEdipine 30 MG Tablet 90 MG PO (07:40)
[2021-01-21] MEDS: Gabapentin 100 MG Capsule PO ×2 (07:40→23:16)
[2021-01-21 08:04] VITALS: BP 138/68; PULSE 69; RESP 16; TEMP 36.4; O2SAT 98
--- NOTE | 2021-01-21 12:04 | PCM.PN.BLA ---
Progress Note Afebrile VSS Maintaining appropriate oxygen saturation on RA Oral intake is good Discussed with nursing - no problems that need addressed Reviewed the PT/OT/ST notes Medication list reviewed. Francisco is happy with the way he is sleeping now. He has no complaints other than some pain in the left shoulder. He is no longer having problems with RLS. He denies cephalgia, shortness of breath, chest pain, hemoptysis, nausea/vomiting/abdominal pain, diarrhea/constipation, dysuria, lightheadedness. Physical Exam Const alert, oriented x3 and no apparent distress Constitutional Narrative: Talkative and speech is not as slow as it was at admission. there is increased modulation to his voice and his affect is not as flat. He is making good eye contact and he is interacting with the staff more. General Appearance: cooperative Eyes PERRL, EOMs intact bilaterally, conjunctivae normal, no scleral icterus and normal visual bedoya by confrontation Neck no lymphadenopathy and supple Resp normal respiratory effort, normal air movement and clear to auscultation bilaterally Resp Narrative: He had some coarse crackles in the bases initially and they resolved after several deep breaths. Cardio regular rate, regular rhythm and no gallops GI normal to inspection, nondistended, normoactive bowel sounds, soft to palpation and non-tender Extremity no calf tenderness and no pedal edema Skin General Skin Exam: no breakdown Rashes: no rashes Neuro Neuro Narrative: More expression in his face when he speaks and also has improved modulation of his voice. He is sleeping well. He makes good eye contact when I speak to him. Assessment & Plan Assessment/Plan (1) Physical debility: (2) Ischemic cerebrovascular accident (CVA): (3) Acute left-sided muscle weakness: (4) Facial droop due to acute stroke: (5) Dysarthria: (6) Dysphagia: (7) Depression: (8) Left shoulder pain: (9) Sleep-disordered breathing: (10) Restless legs: (11) Diabetes mellitus: PLAN: 1. Try arthritis compounded cream twice daily to the left shoulder in lieu of starting another oral medication. 2. Continue the current dose of Sertraline 3. Continue therapy. 4. His family has been in 2 days now for family training in order for Adi to go home from rehab and not to an SNF. He continues to make progress. 5. Dysarthria and dysphagia continue to improve. LUE still with no movement. He is walking to and from the therapy room from his room now with a ana-walker Visit Charges Inpatient E&M: 11470 Subs Hosp L2
[2021-01-21 15:48] VITALS: BMI 24.8
[2021-01-21 16:15] LABS: Bedside Glucose 134 mg/dL (70-110)
[2021-01-21] MEDS: metFORMIN HCl 500 MG Tablet PO (17:12)
[2021-01-21] MEDS: cloNIDine HCl 0.1 MG Tablet PO (17:12)
[2021-01-21 17:13] VITALS: BP 179/79
[2021-01-21 19:48] VITALS: BP 154/76; PULSE 73; RESP 18; TEMP 36.6; O2SAT 97
[2021-01-21] MEDS: Latanoprost 0.005% 1 Bottle 1 DRP EACH EYE (22:09)
[2021-01-21] MEDS: Losartan Potassium 100 MG Tablet PO (22:10)
[2021-01-21] MEDS: Pramipexole Di-HCl 0.125 MG Tablet PO (22:10)
[2021-01-21] MEDS: Gabapentin 300 MG Capsule PO (22:16)
[2021-01-22 04:54] VITALS: BP 172/76; PULSE 71
[2021-01-22] MEDS: cloNIDine HCl 0.1 MG Tablet PO ×2 (04:59→16:59)
[2021-01-22] MEDS: Enoxaparin 40 MG/0.4 ML Syringe SC (04:59)
[2021-01-22] MEDS: Nystatin Powder 15gm Bottle 1 APPLIC TOPICAL ×2 (04:59→22:08)
[2021-01-22] MEDS: Acetaminophen 325 MG Tablet 650 MG PO (04:59)
[2021-01-22 06:25] LABS: Bedside Glucose 91 mg/dL (70-110)
[2021-01-22] MEDS: metFORMIN HCl 1,000 MG Tablet 1000 MG PO (07:42)
[2021-01-22] MEDS: NIFEdipine 30 MG Tablet 90 MG PO (07:42)
[2021-01-22] MEDS: Magnesium Chloride 64 MG Delay Rel.Tablet 128 MG PO (07:43)
[2021-01-22] MEDS: Senna/Docusate Sodium 1 Tablet 2 TABLET PO ×2 (07:43→22:04)
[2021-01-22] MEDS: Multivitamins,Ther W-Minerals Tablet 1 TABLET PO (07:43)
[2021-01-22] MEDS: Ezetimibe 10 MG Tablet PO (07:43)
[2021-01-22] MEDS: Sertraline 50 MG Tablet PO (07:43)
[2021-01-22] MEDS: Clopidogrel Bisulfate 75 MG Tablet PO (07:43)
[2021-01-22] MEDS: Aspirin 81 MG TAB.CHEW PO (07:43)
[2021-01-22 07:57] VITALS: BP 139/66; PULSE 71; RESP 16; TEMP 36.6; O2SAT 98
[2021-01-22 08:01] VITALS: O2SAT 93
[2021-01-22] MEDS: Gabapentin 100 MG Capsule PO ×2 (08:38→22:03)
[2021-01-22 16:16] LABS: Bedside Glucose 171 mg/dL (70-110)
[2021-01-22] MEDS: metFORMIN HCl 500 MG Tablet PO (16:59)
[2021-01-22 17:00] VITALS: BMI 24.8
[2021-01-22 17:02] VITALS: BP 156/57
[2021-01-22 22:00] VITALS: BP 160/79; PULSE 67
[2021-01-22] MEDS: Gabapentin 300 MG Capsule PO (22:03)
[2021-01-22] MEDS: Pramipexole Di-HCl 0.125 MG Tablet PO (22:04)
[2021-01-22] MEDS: Losartan Potassium 100 MG Tablet PO (22:04)
[2021-01-22] MEDS: Latanoprost 0.005% 1 Bottle 1 DRP EACH EYE (22:04)
[2021-01-22] MEDS: Arthritis Pain Compound 60 CLICK TUBE TOPICAL (22:05)
[2021-01-22 23:59] VITALS: BP 129/63; PULSE 63
[2021-01-23] MEDS: Enoxaparin 40 MG/0.4 ML Syringe SC (05:50)
[2021-01-23] MEDS: cloNIDine HCl 0.1 MG Tablet PO (05:50)
[2021-01-23] MEDS: Nystatin Powder 15gm Bottle 1 APPLIC TOPICAL ×2 (05:51→21:55)
[2021-01-23 06:56] LABS: Bedside Glucose 112 mg/dL (70-110)
[2021-01-23 08:02] VITALS: O2SAT 96
[2021-01-23 08:21] VITALS: BP 119/54; PULSE 69; RESP 16; TEMP 36.2; O2SAT 97
[2021-01-23] MEDS: NIFEdipine 30 MG Tablet 90 MG PO (08:25)
[2021-01-23] MEDS: Sertraline 50 MG Tablet PO (08:26)
[2021-01-23] MEDS: Magnesium Chloride 64 MG Delay Rel.Tablet 128 MG PO (08:26)
[2021-01-23] MEDS: Ezetimibe 10 MG Tablet PO (08:26)
[2021-01-23] MEDS: Gabapentin 100 MG Capsule PO ×2 (08:26→21:52)
[2021-01-23] MEDS: Aspirin 81 MG TAB.CHEW PO (08:26)
[2021-01-23] MEDS: Clopidogrel Bisulfate 75 MG Tablet PO (08:26)
[2021-01-23] MEDS: metFORMIN HCl 1,000 MG Tablet 1000 MG PO (08:27)
[2021-01-23] MEDS: Multivitamins,Ther W-Minerals Tablet 1 TABLET PO (08:28)
[2021-01-23] MEDS: Arthritis Pain Compound 60 CLICK TUBE TOPICAL ×2 (08:28→21:52)
[2021-01-23] MEDS: Senna/Docusate Sodium 1 Tablet 2 TABLET PO ×2 (08:30→21:52)
--- NOTE | 2021-01-23 13:12 | PCM.PN.BLA ---
Progress Note Afebrile VSS-systolic blood pressure is still often above goal. Diastolic blood pressure is within goal. Heart rate is within normal limits. Maintaining appropriate oxygen saturation on RA Oral intake is adequate Last bowel movement was 01/22/2021. The blood sugar record was reviewed and the blood sugars are well controlled. The dietitian instructed Francisco and his today on the diet he should continue at home and provided 5 days of 1800-calorie meal plans. Discussed with nursing - no problems that need addressed Reviewed the PT/OT/ST notes Medication list reviewed. No chest pain, calf pain, lightheadedness, cephalgia, shortness of breath, cough or dysuria. He states he is sleeping well and denies jerking, restless legs. No significant bradycardia with the addition of Mirapex to the current drug regimen. Physical Exam Const alert, oriented x3 and no apparent distress Resp clear to auscultation bilaterally Cardio regular rate, regular rhythm, S1 normal heart sound, S2 normal heart sound and no gallops GI normal to inspection, nondistended, normoactive bowel sounds and soft to palpation GI Narrative: No guarding with palpation Extremity no calf tenderness Extremity Narrative: He has pitting edema of both ankles and I suspect this is likely due to Procardia. He admits that he had ankle edema while on amlodipine also. Skin General Skin Exam: no breakdown Rashes: no rashes Assessment & Plan Assessment/Plan (1) CVA (cerebral vascular accident): PLAN: Continue therapy. Patient is currently taking aspirin, Plavix, statin. Plavix will be discontinued prior to discharge. Blood pressure is coming under better control but the systolic remains mildly increased. This is more prominent in the early a.m. Will consider trying a beta-wilmer at at bedtime to see if this improves. (2) Sleep-disordered breathing: PLAN: He is scheduled for a sleep study on 02/03/2021 and will follow up with pulmonary for the results. (3) Depression: PLAN: Continue sertraline. (4) Restless legs: PLAN: Well-controlled with gabapentin and a small dose of pramipexole at bedtime. (5) Physical debility: PLAN: Will have continued PT/OT/ST with home health post discharge (6) Diabetes mellitus: PLAN: Excellent control with no hypoglycemic episodes Visit Charges Inpatient E&M: 50777 Subs Hosp L2
[2021-01-23 15:26] VITALS: BMI 24.8
[2021-01-23 16:05] LABS: Bedside Glucose 87 mg/dL (70-110)
[2021-01-23] MEDS: metFORMIN HCl 500 MG Tablet PO (16:52)
[2021-01-23 19:53] VITALS: BP 143/65; PULSE 60; RESP 18; TEMP 36.4; O2SAT 95
[2021-01-23] MEDS: Gabapentin 300 MG Capsule PO (21:52)
[2021-01-23] MEDS: Losartan Potassium 100 MG Tablet PO (21:53)
[2021-01-23] MEDS: Latanoprost 0.005% 1 Bottle 1 DRP EACH EYE (21:53)
[2021-01-23] MEDS: Pramipexole Di-HCl 0.125 MG Tablet PO (21:54)
[2021-01-24] MEDS: Nystatin Powder 15gm Bottle 1 APPLIC TOPICAL ×2 (05:21→21:24)
[2021-01-24] MEDS: Enoxaparin 40 MG/0.4 ML Syringe SC (05:22)
[2021-01-24 06:11] LABS: Bedside Glucose 77 mg/dL (70-110)
[2021-01-24] MEDS: Arthritis Pain Compound 60 CLICK TUBE TOPICAL (08:00)
[2021-01-24] MEDS: Clopidogrel Bisulfate 75 MG Tablet PO (08:01)
[2021-01-24] MEDS: Aspirin 81 MG TAB.CHEW PO (08:01)
[2021-01-24] MEDS: NIFEdipine 30 MG Tablet 90 MG PO (08:01)
[2021-01-24] MEDS: Multivitamins,Ther W-Minerals Tablet 1 TABLET PO (08:01)
[2021-01-24] MEDS: Ezetimibe 10 MG Tablet PO (08:01)
[2021-01-24] MEDS: Magnesium Chloride 64 MG Delay Rel.Tablet 128 MG PO (08:01)
[2021-01-24] MEDS: metFORMIN HCl 1,000 MG Tablet 1000 MG PO (08:01)
[2021-01-24] MEDS: Sertraline 50 MG Tablet PO (08:03)
[2021-01-24] MEDS: Gabapentin 100 MG Capsule PO ×2 (08:03→21:42)
[2021-01-24 08:30] VITALS: BP 140/77; PULSE 63; RESP 16; TEMP 37; O2SAT 96
[2021-01-24 13:26] VITALS: BMI 24.8
[2021-01-24] MEDS: metFORMIN HCl 500 MG Tablet PO (16:40)
[2021-01-24 17:00] LABS: Bedside Glucose 153 mg/dL (70-110)
[2021-01-24 20:43] VITALS: BP 141/70; PULSE 74; RESP 16; TEMP 36.7; O2SAT 100
[2021-01-24] MEDS: Losartan Potassium 100 MG Tablet PO (20:48)
[2021-01-24] MEDS: Latanoprost 0.005% 1 Bottle 1 DRP EACH EYE (20:48)
[2021-01-24] MEDS: Pramipexole Di-HCl 0.125 MG Tablet PO (20:48)
[2021-01-24] MEDS: Gabapentin 300 MG Capsule PO (20:48)
[2021-01-24] MEDS: Glycerin/Hypromellose/PEG400 15 ml Bottle 1 DRP EACH EYE (21:23)
[2021-01-25 01:09] VITALS: BMI 24.8
[2021-01-25] MEDS: Enoxaparin 40 MG/0.4 ML Syringe SC (05:37)
[2021-01-25] MEDS: Nystatin Powder 15gm Bottle 1 APPLIC TOPICAL ×2 (05:38→21:09)
[2021-01-25] MEDS: Arthritis Pain Compound 60 CLICK TUBE TOPICAL ×2 (05:49→20:11)
[2021-01-25 06:01] LABS: Bedside Glucose 81 mg/dL (70-110)
[2021-01-25] MEDS: cloNIDine HCl 0.1 MG Tablet PO (06:27)
[2021-01-25 07:54] VITALS: O2SAT 93
[2021-01-25] MEDS: Ezetimibe 10 MG Tablet PO (08:17)
[2021-01-25] MEDS: Gabapentin 100 MG Capsule PO ×2 (08:17→21:09)
[2021-01-25] MEDS: Magnesium Chloride 64 MG Delay Rel.Tablet 128 MG PO (08:17)
[2021-01-25] MEDS: Senna/Docusate Sodium 1 Tablet 2 TABLET PO (08:17)
[2021-01-25] MEDS: Aspirin 81 MG TAB.CHEW PO (08:17)
[2021-01-25] MEDS: NIFEdipine 30 MG Tablet 90 MG PO (08:17)
[2021-01-25] MEDS: metFORMIN HCl 1,000 MG Tablet 1000 MG PO (08:17)
[2021-01-25] MEDS: Sertraline 50 MG Tablet PO (08:19)
[2021-01-25] MEDS: Multivitamins,Ther W-Minerals Tablet 1 TABLET PO (08:20)
[2021-01-25 09:00] VITALS: BP 148/70; PULSE 75; RESP 18; TEMP 36.6; O2SAT 98
[2021-01-25 14:32] VITALS: BMI 24.8
[2021-01-25 17:15] LABS: Bedside Glucose 91 mg/dL (70-110)
[2021-01-25] MEDS: metFORMIN HCl 500 MG Tablet PO (17:16)
[2021-01-25 19:26] VITALS: BP 147/67; PULSE 66; RESP 16; TEMP 36.2; O2SAT 98
[2021-01-25] MEDS: Gabapentin 300 MG Capsule PO (20:11)
[2021-01-25] MEDS: Losartan Potassium 100 MG Tablet PO (21:09)
[2021-01-25] MEDS: Pramipexole Di-HCl 0.125 MG Tablet PO (21:09)
[2021-01-25] MEDS: Latanoprost 0.005% 1 Bottle 1 DRP EACH EYE (21:09)
[2021-01-25] MEDS: Glycerin/Hypromellose/PEG400 15 ml Bottle 1 DRP EACH EYE (21:11)
[2021-01-26 00:08] VITALS: BMI 24.8
[2021-01-26] MEDS: Enoxaparin 40 MG/0.4 ML Syringe SC (05:39)
[2021-01-26] MEDS: Nystatin Powder 15gm Bottle 1 APPLIC TOPICAL ×2 (05:39→22:03)
[2021-01-26 05:41] VITALS: BP 176/81; PULSE 66
[2021-01-26] MEDS: cloNIDine HCl 0.1 MG Tablet PO (05:41)
--- NOTE | 2021-01-26 05:54 | NURSING ---
PT GIVEN NECTAR THICK OJ WITH 1 SUGAR PACKET TO DRINK FOR BLOOD SUGAR OF 64. PT IS ASYMPTOMATIC WITH THIS HYPOGYCEMIA.
[2021-01-26 06:10] LABS: Bedside Glucose 74 mg/dL (70-110)
[2021-01-26 06:10] LABS: Bedside Glucose 64 mg/dL (70-110)
[2021-01-26 07:07] VITALS: BP 147/68; PULSE 66; RESP 16; TEMP 36.5; O2SAT 97
[2021-01-26] MEDS: NIFEdipine 30 MG Tablet 90 MG PO (08:05)
[2021-01-26] MEDS: Gabapentin 100 MG Capsule PO ×2 (08:05→22:01)
[2021-01-26] MEDS: Magnesium Chloride 64 MG Delay Rel.Tablet 128 MG PO (08:05)
[2021-01-26] MEDS: Aspirin 81 MG TAB.CHEW PO (08:05)
[2021-01-26] MEDS: Multivitamins,Ther W-Minerals Tablet 1 TABLET PO (08:06)
[2021-01-26] MEDS: Sertraline 50 MG Tablet PO (08:06)
[2021-01-26] MEDS: metFORMIN HCl 1,000 MG Tablet 1000 MG PO (08:08)
[2021-01-26] MEDS: Ezetimibe 10 MG Tablet PO (08:09)
[2021-01-26] MEDS: Arthritis Pain Compound 60 CLICK TUBE TOPICAL ×2 (08:11→21:00)
--- NOTE | 2021-01-26 12:32 | PN_ITS ---
Progress Note Francisco was seen on team rounds today. His and daughter were present for rounds. They have also been coming in for family training to learn how best to assist Francisco when he returns home. Afebrile VSS - The systolic BP has remained elevated with little change even with the change of the medication to Procardia and increasing the dose. This is the reason he was started on a diuretic prior to admission for CVA, uncontrolled HTN. He has been getting Clonidine PRN for increased BP but, it really does not bring the pressure down either. Maintaining appropriate oxygen saturation on RA Oral intake is up and down. Discussed with nursing - no problems that need addressed. He is sleeping well now and no longer c/o RLS. Reviewed the PT/OT/ST notes Medication list reviewed. Blood sugar record was reviewed. Blood sugar was low this a.m. at 64. Yesterday at supper was 91. Francisco denies feeling anxious. He denied feeling depressed when he came to rehab however his affect is much better since starting on Sertraline and everyone has noticed. He is very motivated. His voice is more modulated now and he is more talkative and interacting with the staff better. Francisco denies chest pain, shortness of breath, cough, lightheadedness, calf pain, nausea/vomiting/abdominal pain, dysuria. Physical Exam Const alert, oriented x3 and no apparent distress Constitutional Narrative: sitting in the recliner at the bedside. General Appearance: cooperative HEENT moist oral mucous membranes and oropharynx normal Eyes PERRL, EOMs intact bilaterally, conjunctivae normal and no scleral icterus Eyes Narrative: Less R gaze preference than at admission General Eye: normal appearance of both eyes and normal light reflex Neck supple and no JVD Resp normal respiratory effort, no use of accessory muscles and clear to auscultation bilaterally Effort and Inspection: able to speak in complete sentences Cardio regular rate, regular rhythm, S1 normal heart sound, S2 normal heart sound and n o gallops GI normal to inspection, nondistended, normoactive bowel sounds, soft to palpation and non-tender Extremity normal capillary refill and no calf tenderness Extremity Narrative: He has pitting edema of the ankles and I suspect this is due to the Procardia and not to fluid overload Skin General Skin Exam: no breakdown Rashes: no rashes Psych thought process normal and cooperative Appearance: appropriate and well kempt Attitude: calm Activity / Motor Behavior: appropriate eye contact; Negative for psychomotor agitation Speech: normal speech Assessment & Plan Assessment/Plan (1) Physical debility: (2) Ischemic cerebrovascular accident (CVA): (3) Acute left-sided muscle weakness: (4) HTN (hypertension): (5) Depression: (6) Sleep-disordered breathing: (7) Restless legs: (8) Diabetes mellitus: PLAN: 1. Decrease the AM Lantus back to 20 units daily 2. Insurance update pending 3. continue therapy 4. Lab ordered for the AM Visit Charges Inpatient E&M: 51904 Subs Hosp L2
--- NOTE | 2021-01-26 13:21 | CASEMGMT ---
Social Work IDT met with patient, and dtr to Team meeting. Discussed patient's progress in therapy and nursing. Explained [employer] insurance NRD 01/26 and continued stay is not guaranteed. ST following and would like to repeat MBS by end of the week. discussed adjusting BP meds, starting anxiety med while remaining in the unit for controlled environment. Family has been participating in shared care and during therapy sessions. Family would also like to continue practicing car transfers. Family has ordered several needed pieces of DME to assist pt at home, and it has not been delivered yet. The goal is for pt to get sleep study at [place]. SW will order skilled C PT/OT/ST/SN and home O2 and hemiwalker. SW to continue to follow. Tiffanie Meyers, BUILDING CLEANER WHEEL TUNER
[2021-01-26 16:09] VITALS: BMI 24.8
[2021-01-26] MEDS: metFORMIN HCl 500 MG Tablet PO (16:59)
[2021-01-26 17:20] LABS: Bedside Glucose 95 mg/dL (70-110)
[2021-01-26 19:07] VITALS: BP 147/68; PULSE 65; RESP 16; TEMP 36.6; O2SAT 96
--- NOTE | 2021-01-26 19:10 | NURSING ---
Patient and aware of covid vaccine clinic tomorrow for Moderna and patient requested to get his dose booster tomorrow.
[2021-01-26] MEDS: Gabapentin 300 MG Capsule PO (20:58)
[2021-01-26] MEDS: Glycerin/Hypromellose/PEG400 15 ml Bottle 1 DRP EACH EYE (21:02)
[2021-01-26] MEDS: Losartan Potassium 100 MG Tablet PO (22:01)
[2021-01-26] MEDS: Latanoprost 0.005% 1 Bottle 1 DRP EACH EYE (22:01)
[2021-01-26] MEDS: Pramipexole Di-HCl 0.125 MG Tablet PO (22:01)
[2021-01-26] MEDS: busPIRone 5 MG Tablet PO (22:02)
[2021-01-27 01:45] VITALS: BMI 24.8
[2021-01-27] MEDS: Enoxaparin 40 MG/0.4 ML Syringe SC (05:46)
[2021-01-27] MEDS: Nystatin Powder 15gm Bottle 1 APPLIC TOPICAL ×2 (05:47→21:50)
[2021-01-27 05:48] VITALS: BP 180/82
[2021-01-27] MEDS: cloNIDine HCl 0.1 MG Tablet PO ×3 (05:48→21:47)
[2021-01-27 05:49] LABS: Hematocrit 35.6 % (40-54); Mean Corp Hgb Conc 33.7 g/dL (32-36); Mean Corpuscular Hgb 30.2 pg (27.0-32.0); Mean Corpuscular Volume 89.7 fL (80-94); Mean Platelet Vol. 10.5 fl (6.2-12.0); Platelet Count 268 K/mm3 (150-450); RBC Distribution Width CV 13.3 % (11.6-14.6); Red Blood Count 3.97 M/mm3 (4.6-6.2); White Blood Count 7.7 K/mm3 (4.4-11.0)
[2021-01-27 06:05] LABS: Bedside Glucose 73 mg/dL (70-110)
[2021-01-27 06:18] LABS: Anion Gap 5 (5-15); BUN 23 mg/dL (7-18); BUN/Creat Ratio 23.6 RATIO (10-20); Calcium,Total 8.8 mg/dL (8.5-10.1); Chloride 103 mmol/L (98-107); Creatinine, Serum 0.98 mg/dL (0.70-1.30); EST Glomerular Filtration Rate 78 mL/min (>60); Est Glom Filt Rate - Afr Amer 95 mL/min (>60); Estimated Creatinine Clearance 64.89 ml/min; Glucose 76 mg/dL (74-106); Potassium 3.9 mmol/L (3.5-5.1); Sodium Level 138 mmol/L (136-145)
[2021-01-27 07:30] VITALS: PULSE 73; RESP 18; TEMP 36.7; O2SAT 96
[2021-01-27] MEDS: Multivitamins,Ther W-Minerals Tablet 1 TABLET PO (07:35)
[2021-01-27] MEDS: Aspirin 81 MG TAB.CHEW PO (07:35)
[2021-01-27] MEDS: Arthritis Pain Compound 60 CLICK TUBE TOPICAL ×2 (07:35→21:50)
[2021-01-27] MEDS: metFORMIN HCl 1,000 MG Tablet 1000 MG PO (07:35)
[2021-01-27] MEDS: Magnesium Chloride 64 MG Delay Rel.Tablet 128 MG PO (07:36)
[2021-01-27] MEDS: busPIRone 5 MG Tablet PO ×2 (07:36→21:48)
[2021-01-27] MEDS: NIFEdipine 60 MG Tablet PO (07:36)
[2021-01-27] MEDS: Gabapentin 100 MG Capsule PO ×2 (07:36→22:54)
[2021-01-27] MEDS: Ezetimibe 10 MG Tablet PO (07:37)
[2021-01-27] MEDS: Sertraline 50 MG Tablet 75 MG PO (07:37)
--- NOTE | 2021-01-27 13:20 | CASEMGMT ---
[employer] Insurance issued LCD 01/27, DC 01/28. Contacted the Sleep Lab to schedule pt for his sleep study. Next available bed is 02/03. Met with pt, and dtr in pt room. Discussed DC plans. already purchased a hemiwalker and w/c - no further DME needed. Family requesting [facility] - referral made for PT/OT/ST/SN. Explained sleep study date, time and procedure. Referred to [employer] for night time O2 at 2LPM, which will be delivered to the pt's home. All contact information is listed in the DC paperwork given to pt and family. and dtr to transport pt home. Answered furthered questions. Plan: DC home with and dtr support 01/28, [facility] PT/OT/ST/SN, [employer] O2. Tiffanie Meyers, CONCHA TEJEDAW
[2021-01-27 14:02] VITALS: BMI 24.8
[2021-01-27 15:04] VITALS: BP 152/61; PULSE 64
--- NOTE | 2021-01-27 15:35 | PCM.PN.BLA ---
Progress Note Afebrile VSS-the blood pressure is only mildly elevated during the day but the first blood pressure in the morning at approximately 6:00 is always high. Diastolic is always within normal limits. Heart rate is within normal limits. Maintaining appropriate oxygen saturation on RA Oral intake is adequate Discussed with nursing - no problems that need addressed Reviewed the PT/OT/ST notes Medication list reviewed. All lab from this morning was personally reviewed. The hemoglobin is 12.0 which is stable and the white blood cell count of platelets are within normal limits. Creatinine today 0.98 with a BUN of 23. The creatinine has improved since admission to the rehab unit. Restless leg has resolved with Gabapentin and Pramipexole. He is sleeping well now. He denies CP, SOB, lightheadedness, calf pain, cough and dysuria. His mood is much improved. He feels like he has come a long way from where he was at upon admission to rehab. He is ambulating on various surfaces with a WW and can negotiate a curb step. Dysarthria has improved significantly. Swallowing has improved and diet has been advances. He is no longer coughing while eating. Physical Exam Const alert, oriented x3 and no apparent distress Constitutional Narrative: good energy. General Appearance: cooperative and well kempt HEENT HEENT Narrative: MM are a little dry. Head and Scalp: normocephalic Eyes PERRL, EOMs intact bilaterally, conjunctivae normal, no scleral icterus and normal visual bedoya by confrontation Eyes Narrative: He has a few beats of horizontal nystagmus with eyes deviated far left. General Eye: normal appearance of both eyes and normal light reflex Neck No nuchal rigidity, no lymphadenopathy, supple and no carotid bruits Chest Chest: symmetrical chest wall rise Resp normal respiratory effort, normal air movement, No no use of accessory muscles and clear to auscultation bilaterally Effort and Inspection: able to speak in complete sentences Cardio regular rate, regular rhythm, S1 normal heart sound, S2 normal heart sound, no murmurs, no rub and no gallops GI normal to inspection, nondistended, normoactive bowel sounds, soft to palpation and non-tender GI Narrative: No guarding with palpation and he is having regular BM's Inspection: Negative for abdominal aortic bruit Extremity normal capillary refill and no calf tenderness Extremity Narrative: He has pitting edema of the ankles BL which I suspect is due to Procardia. The dose was decreased to 60 mg this AM. General Extremity: Negative for clubbing or cyanosis Skin General Skin Exam: no breakdown Rashes: no rashes Neuro oriented x3 Neuro Narrative: Still with mild L facial droop. No movement in the LUE. Compression glove is in place to control the edema. R gaze preference is much better and he knows to scan to the left. Psych cooperative, affect normal and activity/motor behavior normal Appearance: appropriate and well kempt Attitude: calm Activity / Motor Behavior: appropriate eye contact; Negative for psychomotor agitation, psychomotor slowing, fidgetting or restless Assessment & Plan Assessment/Plan (1) Depression: (2) Dysphagia: (3) HTN (hypertension): (4) Proteinuria due to type 2 diabetes mellitus: (5) Sleep-disordered breathing: (6) Facial droop due to acute stroke: (7) Acute left-sided muscle weakness: (8) Physical debility: (9) Diabetes mellitus: (10) HLD (hyperlipidemia): (11) Ischemic cerebrovascular accident (CVA): PLAN: 1. Insurance has given us a DC date of tomorrow. I had a talk with Francisco about his BP and noticed that the BP is only significantly elevated in the AM, the systolic BP for most of the day is now 140-145 and I suspect this will come down at home. That being said a large percentage of NV's occur in the AM due to rise in BP and HR to prepare for awakening. Will give Metoprolol XL 25 mg at HS tonight. 2. DC home tomorrow with [facility] for PT/OT/ST/SN 3. DC on oxygen 4. Sleep study is 02/03 and then he will follow up with pulmonary medicine. He has a hemiwalker and a WC and no other DME is needed. 5. Will follow up with PCP in 7-10 days post DC. Will also need to follow up with neurology. He has not had any AF while in rehab but, with the sleep disordered breathing it is not unrealistic to think he may have PAF. Will order a 30 day event monitor at DC. 6. FMLA papers were completed. 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 I recommend that when he is released by PT/OT/neurologist to drive he attended the driving program in [place] to make sure he will be safe driving. Visit Charges Inpatient E&M: 87697 Subs Hosp L2
[2021-01-27] MEDS: metFORMIN HCl 500 MG Tablet PO (17:01)
[2021-01-27 17:15] LABS: Bedside Glucose 180 mg/dL (70-110)
--- NOTE | 2021-01-27 18:18 | PCM.DC ---
Discharge Instructions Diet Discharge Diet: Low fat / Low cholesterol, 2000 mg Sodium Diet and Carb Control Diet Activity Discharge Activity: May Not Drive, May Shower and Use Walker Weight Bearing Status: Full weight bearing Lifting Restrictions: 5 lbs Keep extremity elevated above heart level: Left Arm and Legs Additional Activity Instructions:: Do the exercises given to you by the therapists at least once a day. Dressing / Incision Call your doctor if you observe: Fever of 101 or Higher, Inability to urinate, Shortness of breath, Dizziness, Fainting spells, Chest pain, Increased palpitations (irregular heartbeat) and Calf discomfort Follow Up Care Please Follow Up With: Butch Banegas MD When: 7-10 days Test Results: Test results from this visit will be discussed in further detail at your follow-up appointment, if applicable. Pending Tests Upon Discharge: none Discharge Plan Admission Admit Date/Time: 01/02/21 18:36 Primary Reason for Your Visit: Debility due to ischemic CVA. Attending Provider: Umm Jung Primary Care Provider: Butch Banegas Instructions Patient Instructions: Intimacy After Stroke, RLS, Stroke Prevention Activity Additional Instructions / Restrictions: 1. You have done very well in therapy and worked hard to recover. There are some goals to keep in mind when trying to prevent another stroke. a. The HGBA1C should be 7 or less. Your HGBA1C at admission was 6.7 and that is excellent. b. The LDL or bad cholesterol should be less than 70. your LDL was 162 at admission to rehab. c. We would like the HDL or good cholesterol to be 40 or greater. Yours is only a tad low at 39. Exercise helps to increase the HDl. d. The BP should be less than 135/80. Your bottom number, the diastolic BP, is always within the goal. The top number, or systolic BP, is frequently > 135, [place] in the AM. We have been working on this but changing the medication and increasing doses has not helped significantly. Sometimes this happens when someone is anxious, some people do not recognize this. Sometimes it happens because your brain releases hormones/neurotransmitters just prior to you awakening in the morning to get you ready to wake up. I am trying something at Bedtime to help block the adrenaline release in the AM......this is when many heart attacks happen and it is because the Heart rate and BP go up and this stresses the heart. You have some swelling in your ankles now and this is likely due to Procardia, Amlodipine cause this also. You are NOT fluid overloaded and in fact your lab work shows that you are intravascularly volume depleted. I have not had you on a diuretic while you have been in rehab. You have been taking in only about 1 liter of liquids a day and I would like to see you drink more. You were dehydrated at the time you presented to the ED and you actually had acute kidney failure due to dehydration. The kidney failure has resolved. when we get dehydrated and stand up gravity takes the blood flow to the feet and away from the brain and you get dizzy and can even pass out. If you have narrowing in the small arteries in the brain this can cause a stroke. 2. Stay active.....it is one of the best ways to prevent additional strokes. 30 minutes of exercise a day is adequate. 3. There is a driving program in [place] for people with disabilities to make sure you will be safe driving. the speech therapist, Gretel, has the information. I recommend that when/if PT/OT/neurology release you to drive you consider attending the program. 4. It has been a pleasure getting to know you and your family. It is so nice to have a family who is intelligent and involved in your care and getting you back as far as possible to your baseline. If you or your family have questions after you leave rehab please do not hesitate to get in touch with me. My numbers are: Office: [phone] . Discharge Orders/Prescriptions Prescriptions: New latanoprost 0.005 % Drops 1 drp EACH EYE HS Qty: 0 RF: 0 gabapentin 300 mg Capsule 300 mg PO 2100 Qty: 30 RF: 0 gabapentin 100 mg Capsule 100 mg PO BID Qty: 60 RF: 0 pramipexole 0.125 mg Tablet 0.125 mg PO QHS Qty: 30 RF: 0 sertraline 50 mg Tablet 75 mg PO DAILY Qty: 45 RF: 0 magnesium oxide 400 mg magnesium tablet 400 mg PO DAILY Qty: 30 RF: 0 ezetimibe [Zetia] 10 mg tablet 10 mg PO DAILY Qty: 30 RF: 0 Arthritis Pain Compound 0 click topical BID Qty: 0 RF: 0 metoprolol tartrate 25 mg Tablet 25 mg PO QHS Qty: 30 RF: 0 Continued multivitamin,ov-yqgb-rqjiacmd tablet tablet 1 tab PO QDAY RF: 0 amlodipine 5 mg tablet 10 mg PO DAILY RF: 0 valsartan 320 mg tablet 320 mg PO QHS RF: 0 aspirin 81 mg tablet,chewable 81 mg PO BREAKFAST RF: 0 Changed metformin 500 mg tablet See Rx Instructions .ROUTE .COMPLEX Qty: 45 RF: 0 Basaglar KwikPen U-100 Insulin 100 unit/mL (3 mL) insulin pen 20 unit SUBCUT DAILY Qty: 0 RF: 0 Discontinued chlorthalidone 25 mg tablet 25 mg PO DAILY RF: 0 enoxaparin [Lovenox] 40 mg/0.4 mL Syringe 40 mg SUBCUT DAILY RF: 0 clopidogrel 75 mg tablet 75 mg PO DAILY RF: 0 ezetimibe 10 mg tablet 10 mg PO DAILY RF: 0 Referrals / Follow Up: Butch Banegas MD [Primary Care Provider] - Disposition Disposition (needs filled in before D/C Order can be placed): Home Health Service
[2021-01-27 21:29] VITALS: BP 158/78; PULSE 71; RESP 16; TEMP 36.4; O2SAT 99
[2021-01-27] MEDS: Gabapentin 300 MG Capsule PO (21:47)
[2021-01-27] MEDS: Losartan Potassium 100 MG Tablet PO (21:48)
[2021-01-27] MEDS: Latanoprost 0.005% 1 Bottle 1 DRP EACH EYE (21:50)
[2021-01-27 22:54] VITALS: BP 158/78; PULSE 71
[2021-01-27] MEDS: Metoprolol Tartrate 25 MG Tablet PO (22:54)
[2021-01-27] MEDS: Pramipexole Di-HCl 0.125 MG Tablet PO (22:54)
[2021-01-28 05:05] VITALS: BP 160/76; PULSE 56
[2021-01-28] MEDS: Nystatin Powder 15gm Bottle 1 APPLIC TOPICAL (05:10)
[2021-01-28] MEDS: cloNIDine HCl 0.1 MG Tablet PO (05:10)
[2021-01-28] MEDS: Enoxaparin 40 MG/0.4 ML Syringe SC (05:10)
[2021-01-28 05:55] LABS: Bedside Glucose 89 mg/dL (70-110)
[2021-01-28 07:52] VITALS: BP 148/69; PULSE 60; RESP 12; TEMP 36.3; O2SAT 97
[2021-01-28] MEDS: metFORMIN HCl 1,000 MG Tablet 1000 MG PO (08:34)
[2021-01-28] MEDS: Multivitamins,Ther W-Minerals Tablet 1 TABLET PO (08:34)
[2021-01-28] MEDS: Aspirin 81 MG TAB.CHEW PO (08:34)
[2021-01-28] MEDS: Arthritis Pain Compound 60 CLICK TUBE TOPICAL (08:35)
[2021-01-28] MEDS: busPIRone 5 MG Tablet PO (08:35)
[2021-01-28] MEDS: Gabapentin 100 MG Capsule PO (08:36)
[2021-01-28] MEDS: Magnesium Chloride 64 MG Delay Rel.Tablet 128 MG PO (08:36)
[2021-01-28] MEDS: Ezetimibe 10 MG Tablet PO (08:36)
[2021-01-28] MEDS: NIFEdipine 60 MG Tablet PO (08:36)
[2021-01-28] MEDS: Sertraline 50 MG Tablet 75 MG PO (08:37)
--- NOTE | 2021-01-28 10:17 | DS.PCM_ITS ---
Providers Date of Admission: 01/02/21 Date of Discharge: 01/28/21 Primary Care Physician: Dr. Butch Banegas MD Reason For Visit: STROKE Diagnosis Discharge Diagnosis (1) Physical debility: Status: Acute Code(s): R53.81 - Other malaise Plan: Discharge home and continue PT/OT/ST/SN with [facility] (2) Ischemic cerebrovascular accident (CVA): Status: Acute Code(s): I63.9 - Cerebral infarction, unspecified Plan: This is his second stroke. He was unaware of the first stroke located in the antony. (3) Dysphagia: Status: Acute Code(s): R13.10 - Dysphagia, unspecified Qualifiers: Dysphagia type: oropharyngeal phase Qualified Code(s): R13.12 - Dysphagia, oropharyngeal phase Plan: Continue soft, moist, bite size diet with nectar thick liquids. (4) Facial droop due to acute stroke: Status: Acute Code(s): I63.9 - Cerebral infarction, unspecified; R29.810 - Facial weakness Plan: Mild droop now. Had lower facial paralysis on the left at admission. (5) Acute left-sided muscle weakness: Status: Acute Code(s): M62.81 - Muscle weakness (generalized) Plan: LLE improved and he is ambulating with a ana-walker. Still with no movement of the L arm. Will continue therapy. (6) Dysarthria: Status: Resolved Code(s): R47.1 - Dysarthria and anarthria (7) HTN (hypertension): Status: Chronic Code(s): I10 - Essential (primary) hypertension Plan: Diastolic is always controlled but, the systolic is mildly above goal and this is worst with the first BP in the AM. Started on Metoprolol XL 25 mg at HS on 01/27/21 and the BP in the AM is better at 148/69. It had been in the 180's. HR is WNL. No lightheadedness and negative orthostatic VS's. (8) Diabetes mellitus: Status: Chronic Code(s): E11.9 - Type 2 diabetes mellitus without complications Plan: Well controlled. HGBA1C was 6.7 at admission to rehab. (9) Proteinuria due to type 2 diabetes mellitus: Status: Acute Code(s): E11.29 - Type 2 diabetes mellitus with other diabetic kidney complication; R80.9 - Proteinuria, unspecified Plan: He is on an ARB. (10) HLD (hyperlipidemia): Status: Acute Code(s): E78.5 - Hyperlipidemia, unspecified Plan: LDL was 162 at admission. The HDL is low at 39. He was placed on Zetia 10 mg and has been tolerating without any adverse reactions. Needs a repeat Lipid profile in another 2-4 weeks. (11) Hypomagnesemia: Status: Resolved Code(s): E83.42 - Hypomagnesemia Plan: Resolved with addition of a Magnesium supplement. (12) Restless legs: Status: Resolved Code(s): G25.81 - Restless legs syndrome Plan: Resolved with Gabapentin and a small dose of Pramipexole. (13) Left shoulder pain: Status: Resolved Code(s): M25.512 - Pain in left shoulder Plan: Much better with the use of a compounded arthritic cream applied to the left shoulder 2-3 times a day. (14) Osteoarthritis: Status: Chronic Code(s): M19.90 - Unspecified osteoarthritis, unspecified site (15) Depression: Status: Acute Code(s): F32.A - Depression, unspecified Plan: Much improved on Sertraline and no adverse side effects with the medication. (16) Normocytic normochromic anemia: Status: Acute Code(s): D64.9 - Anemia, unspecified Plan: DC to home with PT/OT/ST/SN (17) Sleep-disordered breathing: Status: Acute Code(s): G47.30 - Sleep apnea, unspecified (18) CVA (cerebral vascular accident): Status: Acute Code(s): I63.9 - Cerebral infarction, unspecified Medications at Discharge Home Medications multivitamin,vv-hdgi-mesjfjqy 1 tab PO QDAY 03/03/17 amlodipine 10 mg PO DAILY 12/31/20 valsartan 320 mg PO QHS 12/31/20 aspirin 81 mg PO BREAKFAST 01/02/21 Arthritis Pain Compound 0 click TOPICAL BID #0 01/27/21 Basaglar KwikPen U-100 Insulin 20 unit SUBCUT DAILY #0 ml 01/27/21 ezetimibe [Zetia] 10 mg PO DAILY #30 tab 01/27/21 gabapentin 100 mg PO BID #60 cap 01/27/21 gabapentin 300 mg PO 2100 #30 cap 01/27/21 latanoprost 1 drp EACH EYE HS #0 ml 01/27/21 magnesium oxide 400 mg PO DAILY #30 tab 01/27/21 metformin See Rx Instructions .ROUTE .COMPLEX #45 tab 01/27/21 metoprolol tartrate 25 mg PO QHS #30 tab 01/27/21 pramipexole 0.125 mg PO QHS #30 tab 01/27/21 sertraline 75 mg PO DAILY #45 tab 01/27/21 Hospital Course Operations None Procedures - (MBS on 01/06/21 - Moderately-Severe Oropharyngeal Dysphagia) Summary of Care Provided Minutes Spent on Discharge: 50 Hospital Course: FRANCISCO CLOUD, is a 80 YO M with a PMH of diabetes mellitus type 2, hypertension and recurrent right inguinal hernia who presented to the emergency department at [facility] on 12/31/2020 complaining of weakness in his left arm and left leg. CTB showed a right pontine round hypodensity measuring 6 mm most consistent with an old infarct. No acute findings. CTA of the head and neck showed a focal short segment occlusion of the distal right vertebral artery likely representing soft plaque or thrombus. There was scattered atherosclerotic plaque involving the distal left vertebral artery with mild luminal narrowing. Teleneurology was consulted and recommended MRI, ASA and Plavix along with a statin. He was admitted to [facility] for further evaluation. TTE showed mild concentric left ventricular hypertrophy with an ejection fraction of 65%. There was stage I diastolic dysfunction and no regional wall motion abnormalities. Bubble contrast was negative for right to left shunt. The pulmonary artery systolic pressure was estimated at 36 which is consistent with mild pulmonary hypertension. The right ventricle was normal size with normal systolic function. 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 Unfortunately he had a extension of the stroke following admission and expe rienced a complete loss of any movement in the LUE, increased weakness in the LLE, facial droop, oropharyngeal dysphagia and L side neglect. He was evaluated by PT/OT/ST and acute rehab was recommended. He was transferred to the acute inpt rehab unit at [facility] on 01/02/21 for 3 hours of therapy daily to restore function at or near his prior level of function. Significant lab during his hospital admission included an elevated creatinine at 1.42 at admission with an estimated GFR of 51 which is consistent with stage IIIa chronic renal failure. 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 He does not like to drink fluids and while in rehab we could only get him to drink about 1 liter per day even with a lot of encouragement. His stated that is more than he drinks at home. Following hydration the creatinine decreased to 1.22. No baseline is available at this time. the CREAT at DC was 0.98 with a BUN of 23 and an elevated BUN/CREAT ratio of 23.9. The hemoglobin A1c was 6.7. Total cholesterol was 242 with an LDL of 162 and the HDL was 39. Triglycerides were elevated at 204. He was not on a statin at the time of admission. He had been on pravastatin in the past and it is listed as an allergy (myalgia). He was started on Zetia during his admissio n and has had no adverse reactions in the month he has been in rehab. Francisco's affect upon admission to rehab was very flat. He had little facial expression and his voice was mostly monotone. He was started on Sertraline and has improved significantly. He is more talkative, interacts more with the staff, has increased facial expression and good voice modulation. He has been very motivated and cooperative with therapy. Francisco had not been sleeping well for some time prior to the stroke. He would only sleep 1-2 hours at a time. He had severe restless leg and this occurred while sleeping and also during his hours of being awake. His legs would jerk and jump and he was unable to control this. He was started on Gabapentin 100 mg BID and 300 mg at HS and this helped significantly but he was still having some RLS at night that would wake him up. Mirapex 0.125 mg at HS was added to the drug regimen and prior to DC he was sleeping better than he had in a long time. During therapy he started to experience pain in the R shoulder from leaning heavily on the Platform walker. Rather than add any additional oral medication we started an arthritis cream containing lidocaine, Voltaren and baclofen which is compounded by the retail pharmacist. This was effective in relieving the pain. A prescription was given at discharge. Francisco did very well in therapy. Prior to DC he ambulated 202 feet using a right hemiwalker at contact-guard assist/minimal assist. He was able to do 9 sit to stand maneuvers in 30 seconds. He was supervision with eating and contact-guard assist with grooming. He requires moderate assistance with bathing, minimal assistance with upper body dressing but maximal assistance with lower body dressing. He is minimal assistance for toilet transfer and toileting. He is also minimal assistance for tub/shower transfer. His and daughter came in several days for family training to learn how best to assist Francisco. He has previously followed with Dr. Banegas for his PCP but, they are not longer able to travel that far to Dr. Banegas's office and they are now going to follow up with Dr. Jennifer Watt. He is also going to follow up with Dr. Natasha unger for neurology. He will have [facility] for PT/OT/ST and SN. A sleep study was arranged for 02/03/21. His STOP BANG score is high at 4 and he has sleep disordered breathing detected on an overnight trending pulse ox. An order was written for a 30 day event monitor because he has sleep disordered breathing and had hypomagnesemia at admission and this puts him at risk for PAF. Physical Exam Const alert, oriented x3 and no apparent distress Constitutional Narrative: good energy. General Appearance: cooperative, well kempt and well developed HEENT moist oral mucous membranes and oropharynx normal Eyes PERRL, EOMs intact bilaterally, conjunctivae normal, no scleral icterus and normal visual bedoya by confrontation Eyes Narrative: He has a few beats of horizontal nystagmus with eyes deviated far left. Neck no lymphadenopathy, supple, no JVD and no carotid bruits Neck Narrative: Brisk carotid upstroke with excellent pulse volume Chest Chest: symmetrical chest wall rise Resp normal respiratory effort, normal air movement, No no use of accessory muscles and clear to auscultation bilaterally Effort and Inspection: able to speak in complete sentences Cardio regular rate, regular rhythm, S1 normal heart sound, S2 normal heart sound, no murmurs, no rub and no gallops GI normal to inspection, nondistended, normoactive bowel sounds and non-tender GI Narrative: No guarding with palpation and he is having regular BM's Inspection: Negative for abdominal aortic bruit Extremity normal capillary refill, no calf tenderness and no pedal edema Extremity Narrative: has pitting edema of the ankles only. NEY hose are in place. General Extremity: Negative for clubbing or cyanosis Skin Skin Narrative: No rashes, no skin breakdown. Neuro oriented x3 Neuro Narrative: Still with mild L facial droop. No movement in the LUE. Compression glove is in place to control the edema. R gaze preference is much better and he knows to scan to the left. Psych Psych Narrative: Affect is no longer flat and he has better facial expression and voice modulation. His voice is projecting well and I can not detect any dysarthria. Makes good eye contact and is able to join in the conversation without being easily distracted. Weight / BMI Weight Weight: 181 lb 7.047 oz Body Mass Index (BMI) 24.8 ABG / Lab / Microbiology Data Result Diagrams: 01/27/21 05:41 01/27/21 05:41 Laboratory: Laboratory Results - last 24 hr 01/27/21 17:03: POC Glucose 180 H 01/28/21 05:45: POC Glucose 89 D/C Instructions Discharge Diet: Low fat / Low cholesterol, 2000 mg Sodium Diet and Carb Control Diet Weight Bearing Status: Full weight bearing Keep extremity elevated above heart level: Left Arm and Legs Additional Activity Instructions: Do the exercises given to you by the therapists at least once a day. Call your doctor if you observe: Fever of 101 or Higher, Inability to urinate, Shortness of breath, Dizziness, Fainting spells, Chest pain, Increased palpitations (irregular heartbeat) and Calf discomfort Pending Tests Upon Discharge: none Please Follow Up With: Butch Banegas MD When: 7-10 days Meaningful Use Info Meaningful Use Diagnoses (Choose all that apply): Ischemic CVA CVA Therapy Assessed for PT,OT and/or ST?: Yes Ischemic Stroke Antithrombotic order at d/c?: Yes Dx of Atrial fib/flutter?: No Anticoagulant at discharge?: No Reason anticoagulant not ordered: Treatment not Indicated Statins at discharge?: Yes Primary Dx Acute Ischemic CVA?: Yes IV tPA ordered during stay?: No Reason IV t-PA not ordered: Treatment not Indicated Discharge Plan Admission Admit Date/Time: 01/02/21 18:36 Primary Reason for Your Visit: Debility due to ischemic CVA. Attending Provider: Umm Jung Primary Care Provider: Butch Banegas Instructions Patient Instructions: Intimacy After Stroke, RLS, Stroke Prevention Activity Additional Instructions / Restrictions: 1. You have done very well in therapy and worked hard to recover. There are some goals to keep in mind when trying to prevent another stroke. a. The HGBA1C should be 7 or less. Your HGBA1C at admission was 6.7 and that is excellent. b. The LDL or bad cholesterol should be less than 70. your LDL was 162 at admission to rehab. c. We would like the HDL or good cholesterol to be 40 or greater. Yours is only a tad low at 39. Exercise helps to increase the HDl. d. The BP should be less than 135/80. Your bottom number, the diastolic BP, is always within the goal. The top number, or systolic BP, is frequently > 135, [place] in the AM. We have been working on this but changing the medication and increasing doses has not helped significantly. Sometimes this happens when someone is anxious, some people do not recognize this. Sometimes it happens because your brain releases hormones/neurotransmitters just prior to you awakening in the morning to get you ready to wake up. I am trying something at Bedtime to help block the adrenaline release in the AM......this is when many heart attacks happen and it is because the Heart rate and BP go up and this st resses the heart. You have some swelling in your ankles now and this is likely due to Procardia, Amlodipine cause this also. You are NOT fluid overloaded and in fact your lab work shows that you are intravascularly volume depleted. I have not had you on a diuretic while you have been in rehab. You have been taking in only about 1 liter of liquids a day and I would like to see you drink more. You were dehydrated at the time you presented to the ED and you actually had acute kidney failure due to dehydration. The kidney failure has resolved. when we get dehydrated and stand up gravity takes the blood flow to the feet and away from the brain and you get dizzy and can even pass out. If you have narrowing in the small arteries in the brain this can cause a stroke. 2. Stay active.....it is one of the best ways to prevent additional strokes. 30 minutes of exercise a day is adequate. 3. There is a driving program in [place] for people with disabilities to make sure you will be safe driving. the speech therapist, Gretel, has the information. I recommend that when/if PT/OT/neurology release you to drive you consider attending the program. 4. It has been a pleasure getting to know you and your family. It is so nice to have a family who is intelligent and involved in your care and getting you back as far as possible to your baseline. If you or your family have questions after you leave rehab please do not hesitate to get in touch with me. My numbers are: Office: [phone] . Discharge Orders/Prescriptions Prescriptions: New latanoprost 0.005 % Drops 1 drp EACH EYE HS Qty: 0 RF: 0 gabapentin 300 mg Capsule 300 mg PO 2100 Qty: 30 RF: 0 gabapentin 100 mg Capsule 100 mg PO BID Qty: 60 RF: 0 pramipexole 0.125 mg Tablet 0.125 mg PO QHS Qty: 30 RF: 0 sertraline 50 mg Tablet 75 mg PO DAILY Qty: 45 RF: 0 magnesium oxide 400 mg magnesium tablet 400 mg PO DAILY Qty: 30 RF: 0 ezetimibe [Zetia] 10 mg tablet 10 mg PO DAILY Qty: 30 RF: 0 Arthritis Pain Compound 0 click topical BID Qty: 0 RF: 0 metoprolol tartrate 25 mg Tablet 25 mg PO QHS Qty: 30 RF: 0 Continued multivitamin,yq-fjrz-weqdndwn tablet tablet 1 tab PO QDAY RF: 0 amlodipine 5 mg tablet 10 mg PO DAILY RF: 0 valsartan 320 mg tablet 320 mg PO QHS RF: 0 aspirin 81 mg tablet,chewable 81 mg PO BREAKFAST RF: 0 Changed metformin 500 mg tablet See Rx Instructions .ROUTE .COMPLEX Qty: 45 RF: 0 Basaglar KwikPen U-100 Insulin 100 unit/mL (3 mL) insulin pen 20 unit SUBCUT DAILY Qty: 0 RF: 0 Discontinued chlorthalidone 25 mg tablet 25 mg PO DAILY RF: 0 enoxaparin [Lovenox] 40 mg/0.4 mL Syringe 40 mg SUBCUT DAILY RF: 0 clopidogrel 75 mg tablet 75 mg PO DAILY RF: 0 ezetimibe 10 mg tablet 10 mg PO DAILY RF: 0 Referrals / Follow Up: Butch Banegas MD [Primary Care Provider] - Disposition Disposition (needs filled in before D/C Order can be placed): Home Health Service Charges/Coding Visit Charges Inpatient E&M: 57203 Disch Hosp
[2021-01-28 11:13] VITALS: BMI 24.8
--- NOTE | 2021-01-28 13:22 | CASEMGMT ---
Social Work requested referral to Palliative. Referral made to [facility]. Tiffanie Meyers, BACK DIGGER OPERATOR CT SCAN TECHNICIAN
[2021-01-28 14:33] VITALS: BP 148/69; PULSE 55; RESP 16; TEMP 36.3; O2SAT 97
== END 2021-01-28 14:34 | disposition home health service (06) | DRG 57 ==
PROVIDERS: Admitting Provider Internal Medicine; PCP Family Medicine; Visit Provider Internal Medicine
DX: I69.354 Hemiplegia and hemiparesis following cerebral infarction affecting left non-dominant side (principal); N17.9 Acute kidney failure, unspecified; I69.392 Facial weakness following cerebral infarction; I69.391 Dysphagia following cerebral infarction; I69.322 Dysarthria following cerebral infarction; R13.12 Dysphagia, oropharyngeal phase; Z23 Encounter for immunization; E11.22 Type 2 diabetes mellitus with diabetic chronic kidney disease; I12.9 Hypertensive chronic kidney disease with stage 1 through stage 4 chronic kidney disease, or unspecified chronic kidney disease; N18.32 Chronic kidney disease, stage 3b; I27.20 Pulmonary hypertension, unspecified; E78.5 Hyperlipidemia, unspecified; F32.A Depression, unspecified; G25.81 Restless legs syndrome; M19.90 Unspecified osteoarthritis, unspecified site; Z79.899 Other long term (current) drug therapy; Z79.84 Long term (current) use of oral hypoglycemic drugs; Z79.02 Long term (current) use of antithrombotics/antiplatelets; Z79.82 Long term (current) use of aspirin
CPT/HCPCS: 0064A; 36415; 74230; 80048; 80069; 80076; 81001; 82570; 82962; 83735; 84156; 84300; 85027; 91301; 92507; 92523; 92526; 92610; 92611; 94762; 97110; 97112; 97116; 97140; 97162; 97165; 97530; 97535; 97802; 97803; 99251; J7030; J7120; A4216; G0463

== ENCOUNTER → 2021-02-03 20:06 | Outpatient (CLI) | payer MEDICARE, SELFPAY | PROVIDERS: PCP Family Medicine; Visit Provider Internal Medicine | DX: G47.33 Obstructive sleep apnea (adult) (pediatric) (principal) | CPT/HCPCS: 95811 ==

== ENCOUNTER → 2021-02-26 12:45 | Outpatient (CLI) | payer MEDICARE, SELFPAY ==
--- NOTE | 2021-02-26 14:05 | SP.MBSS_ITS ---
Modified Barium Swallow - Patient Information Study Date: 02/26/21 Study Time: 13:00 Direct Billable Minutes: 85 Total Minutes procedure & reportin Diagnosis: CVA (I63.9), Dysphagia (R13.10) Referring Physician: Jennifer Watt Reason for Referral: Assess for aspiration risk and consider patient for diet advancement. Medical History: SHAISTA CLOUD is a 80 year old M with a PMH of diabetes mellitus type 2, hypertension and recurrent right inguinal hernia who presented to the emergency department at [facility] on 12/31/2020 complaining of weakness in his left arm and left leg. CTB showed a right pontine round hypodensity measuring 6 mm most consistent with an old infarct. 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 He was transferred to the acute inpt rehab unit at [facility] on 01/02/21 for 3 hours of therapy daily. He participated in speech therapy services from 01/02/21-01/27/21 with discharge recommendations for continued speech therapy as an outpatient or with [facility] to address mild dysarthria, moderate oropharyngeal dysphagia and mild L visual inattention, and repeat MBSS. Pt to continue w/soft and bite sized diet, minced/moist meats, and mildly thick (nectar) liquids, and FFWP between meals upon discharge. MBSS 01/06/21 recommended minced and moist/mildly thick liquid diet recommended w/ the following aspiration precautions: small bites, small sips, alternate bites of solids w/ sips of liquids, no straws, multiple swallows, sit upright at 90 degrees for intake, remain upright for 30 minutes after intake, thorough oral hygiene after meals and before water intake, [place] Free Water Protocol. Current Diet Ordered: Soft&Bite Size, Minced&Moist Meat, [place] Liquids Dentition: Natural Teeth Mental Status: WNL Respiratory Status: Oxygenating on Room Air - Penetration-Aspiration Scale Penetration-Aspiration Scale: OBJECTIVE ASSESSMENT OF SWALLOW FUNCTION (QUANTITATIVE ? PER TRIAL): PENETRATION / ASPIRATION SCALE (DUMONT): 1 = does not enter airway 2 = enters airway/above vocal folds/ejected 3 = enters airway/above vocal folds/not ejected 4 = enters airway/contacts vocal folds/ejected 5 = enters airway/contacts vocal folds/not ejected 6 = enters airway/below vocal folds/ejected 7 = enters airway/below vocal folds/not ejected despite effort 8 = enters airway/below vocal folds/no effort VIDEOFLOROSCOPIC SCALE SCORE (DUMONT): Grade I = aspiration of material that has penetrated into the laryngeal vestibule, intact cough reflex Grade II = aspiration < 10 % of the bolus, intact cough reflex Grade III = aspiration of < 10 % of the bolus, reduced cough reflex or aspiration of > 10 % of the bolus, intact cough reflex Grade IV = aspiration of > 10 % of the bolus, reduced cough reflex - Penetration-Aspiration Scale Score Thin Liquid via teaspoon Result: 2= enter airway/above vocal folds/ejected Thin Liquid via teaspoon Trial 2 Result: 1= does not enter airway Thin Liquid via small single sip from cup Result: 1= does not enter airway Thin Liquid via sequential sips from cup Result: 2= enter airway/above vocal folds/ejected [place] Thick Liquid via small single sip from cup Result: 1= does not enter airway Honey Thick Liquid via small single sip from cup Result: 1= does not enter airway Pudding Result: 1= does not enter airway Cookie Result: 1= does not enter airway Thin Liquid via single sip from straw Result: 2= enter airway/above vocal folds/ejected Thin Liquid via sequential sips from straw Result: 2= enter airway/above vocal folds/ejected Thin Liquid via small single sip from cup Trial 2 Result: 1= does not enter airway - Oral Phase Labial Seal: Interlabial escape, no progression to anterior lip Tongue Control During Bolus Hold: Posterior escape of less than half of bolus Bolus Preparation/Mastication: Disorganized chewing/mashing with solid pieces of bolus unchewed Bolus Transport/Lingual Motion: Repetitive/disorganized tongue motion Oral Residue: Residue collection on oral structures - Pharyngeal Phase Initiation of Pharyngeal Swallow: Bolus head in pyriforms Soft Palate Elevation: No bolus between soft palate and pharyngeal wall Laryngeal Elevation: Partial superior movement thyroid cart/partial apprx aryt- epig petiole Anterior Hyoid Excursion: Partial anterior movement Epiglottic Movement: Complete inversion Laryngeal Vestibule Closure at Height of Swallow: Incomplete; narrow column of air/contrast in laryngeal vestibule Pharyngeal Stripping Wave: Present - diminished Pharyngoesophageal Segment Opening: Parital distension and partial duration; parital obstruction of flow Tongue Base Retraction: No contrast between tongue base and posterior pharyngeal wall Pharyngeal Residue: Collection of residue within or on pharyngeal structures - Esophageal Phase Esophageal Clearance: Esophageal retention - Treatment Strategies Effects of treatment strategies attemped:: Decreased bolus rate = Effective. Decreased bolus size = Effective. - Diagnosis/Impression Diagnosis: Mild oropharyngeal phase dysphagia (R13.12) Impression: The oral phase of the swallow is primarily marked by deficits in bolus control resulting in slowed A-P transfer of bolus, premature posterior loss of bolus - especially noted with sequential sips of thin liquids. The patient additionally has deficits in mastication, characterized by prolonged/disorganized mastication of solid textures. The patient had mild oral residue of cookie contrast which cleared with use of double swallow. The pharyngeal phase of the swallow is primarily marked by delayed swallow onset, which was most notable with sequential sips of thin liquids initiating with bolus head in the pyriforms. The patient also has mild deficits in airway closure likely due to decreased anterior hyoid excursion and mildly decreased laryngeal elevation. He presented with trace penetration of thin liquids via single straw, sequential straw, and sequential cup sips; however, the contrast appeared to fully eject from the airway. He additionally presented with mild pharyngeal residues throughout the study in the pyriforms. No aspiration was observed during the study. - Recommendations Diet: Regular Textures - Soft and Bite Size (IDDSI Level 6), Thin Liquids Compensatory Strategies: Small Bites, Small Sips, No Straws, Slow Rate - One bite/sip at a time, Multiple Swallows - Consider use of intermittent double swallows during meals due to mild oral and pharyngeal residues present during study., Sitting upright, Assist with verbal cues to use recommended strategies Supervision: Assist as needed Recommend Repeat Modified Barium Swallow: TBD Need for Skilled Speech Therapy Services: Yes Comment: Will recommend the patient for continued [facility] dysphagia therapy to address remaining deficits in oropharyngeal swallow function. Would consider the patient for oropharyngeal strengthening to improve lingual coordination, laryngeal elevation, hyoid excursion, and duration of UES opening. The patient would be nefit from thorough education regarding diet recommendations and recommended compensatory strategies. Education Completed: 1. Described result of evaluation., 2. Pt understands evaluation & agrees with goals and treatment plan., 4. Family/caregivers understand evaluation & agree w/ goals & tx plan., 7. Pt requires further education on strategies & risks. - Status Active ST Patient: Active - Contact Information [facility] Speech Therapy:: Aaliyah Ratliff M.A. [facility] Speech-Language Pathologist [facility] [address] [place] [address] [email or web address] [phone] 02/26/21 14:15
== END ==
PROVIDERS: PCP Internal Medicine; Referring Provider Internal Medicine; Visit Provider Internal Medicine
DX: I63.9 Cerebral infarction, unspecified (principal); R13.12 Dysphagia, oropharyngeal phase
CPT/HCPCS: 74230; 92611

== ENCOUNTER → 2021-03-10 09:08 | Outpatient (CLI) | payer MEDICARE, SELFPAY ==
--- NOTE | 2021-03-10 09:45 | ART_ITS ---
Reason For Study: Absent distal pulses in lower extremities Procedure A bilateral lower extremity continuous wave Doppler with analog waveform analysis and ankle brachial indexes. Left Segmental Pressures Left posterior tibial artery = 111mmHg. Left dorsalis pedis artery = 128mmHg. Left digit = 71 mmHg. The left dorsalis pedis waveforms are monophasic. The left posterior tibial artery waveforms are monophasic. Right Segmental Pressures Right brachial= 180mmHg. Right posterior tibial artery = 114mmHg. Right digit = 68 mmHg. The right posterior tibial artery waveforms are monophasic. The right dorsalis pedis waveforms are absent. Indices The right ankle brachial index by the posterior tibial artery is 0.63. The right digital-brachial index is 0.38. The left ankle brachial index by the dorsalis pedis is 0.71. The left ankle brachial index by the posterior tibial artery is 0.62. The left digital-brachial index is 0.39. 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 Right digital brachia l index of 0.38 is abnormal Moderately severe left lower extremity arterial occlusive disease based upon an kle brachial indices however the left dorsalis pedis and posterior tibial Doppler waveforms are both monophasic suggesting more severe level disease. The left digital brachial index is abnorm al at 0.39 Ordering Physician: Costa Barrera Referring Physician: Jennifer Watt Performed By: Tish Riddle RVT
[2021-03-10 10:10] LABS: Vitamin B12 270 pg/mL (211-911)
[2021-03-10 10:51] LABS: ALB/GLOB Ratio 0.9 RATIO (0.9-2.4); AST(SGOT) 16 U/L (15-37); Alanine Aminotransfer ALT/SGPT 34 U/L (16-61); Albumin, Serum 3.6 g/dL (3.2-5.0); Alkaline Phosphatase 68 U/L (45-117); Anion Gap 10 (5-15); BUN 20 mg/dL (7-18); BUN/Creat Ratio 19.6 RATIO (10-20); Calcium,Total 9.2 mg/dL (8.5-10.1); Chloride 101 mmol/L (98-107); Creatinine, Serum 1.02 mg/dL (0.70-1.30); EST Glomerular Filtration Rate 74 mL/min (>60); Est Glom Filt Rate - Afr Amer 90 mL/min (>60); Globulin 4.2 g/dL (2.2-4.2); Glucose 64 mg/dL (74-106); Potassium 3.3 mmol/L (3.5-5.1); Protein, Total 7.8 g/dL (6.4-8.2); Sodium Level 138 mmol/L (136-145)
[2021-03-11 14:09] LABS: Free Kappa Light Chains 32.6 mg/L (3.3-19.4); Free Lambda Light Chains 19.5 mg/L (5.7-26.3)
== END ==
PROVIDERS: PCP Internal Medicine; Referring Provider Psychiatry & Neurology Neurology; Visit Provider Psychiatry & Neurology Neurology
DX: G62.9 Polyneuropathy, unspecified (principal); I73.9 Peripheral vascular disease, unspecified; I10 Essential (primary) hypertension
CPT/HCPCS: 36415; 80053; 82607; 82746; 83883; 84443; 93922

== ENCOUNTER 2021-03-27 15:23 | Outpatient (CLI) | payer MEDICARE, SELFPAY | END 2021-03-27 23:59 | disposition short-term general hospital (02) | LOC: SL 15:23 | PROVIDERS: PCP Internal Medicine; Referring Provider Nurse Practitioner Acute Care; Visit Provider Nurse Practitioner Acute Care | DX: Z46.89 Encounter for fitting and adjustment of other specified devices (principal) ==

== ENCOUNTER 2021-04-22 14:09 | Outpatient (CLI) | payer MEDICARE, SELFPAY ==
[2021-04-22 15:29] LABS: Absolute Lymphocyte Count 2.09 X10^3/uL (0.83-4.51); Absolute Neutrophil Count 5.7 X10^3/uL (2.0-7.7); Basophil# 0.07 X10^3/uL; Basophil% 0.8 % (0-1); Eosinophil# 0.25 X10^3/uL; Eosinophils% 2.8 % (0-5); Hematocrit 41.9 % (40-54); Hemoglobin 14.1 g/dL (13.0-16.5); Lymphocyte # 2.09 X10^3/ul (0.83-4.51); Lymphocyte % 23.2 % (19-41); Mean Corp Hgb Conc 33.7 g/dL (32-36); Mean Corpuscular Hgb 30.6 pg (27.0-32.0); Mean Corpuscular Volume 90.9 fL (80-94); Mean Platelet Vol. 11.3 fl (6.2-12.0); Monocyte# 0.89 X10^3/uL; Monocyte% 9.9 % (0-10); NRBC Flagged by Analyzer 0 % (0-5); Neutrophil # 5.69 X10^3/uL (2.7-7.7); Neutrophil % 63.1 % (47-70); Platelet Count 285 K/mm3 (150-450); RBC Distribution Width CV 14.6 % (11.6-14.6); RBC Distribution Width SD 48.8 fl (35.1-43.9); Red Blood Count 4.61 M/mm3 (4.6-6.2)
[2021-04-22 15:52] LABS: ALB/GLOB Ratio 0.9 RATIO (0.9-2.4); AST(SGOT) 19 U/L (15-37); Alanine Aminotransfer ALT/SGPT 29 U/L (16-61); Albumin, Serum 3.5 g/dL (3.2-5.0); Alkaline Phosphatase 68 U/L (45-117); Anion Gap 6 (5-15); BUN 17 mg/dL (7-18); BUN/Creat Ratio 14.9 RATIO (10-20); Calcium,Total 9.3 mg/dL (8.5-10.1); Chloride 98 mmol/L (98-107); Cholesterol 188 mg/dL (200); Creatinine, Serum 1.14 mg/dL (0.70-1.30); EST Glomerular Filtration Rate 65 mL/min (>60); Est Glom Filt Rate - Afr Amer 79 mL/min (>60); Globulin 4.1 g/dL (2.2-4.2); Glucose 159 mg/dL (74-106); High Density Lipoprotein 39 mg/dL; Potassium 3.6 mmol/L (3.5-5.1); Protein, Total 7.6 g/dL (6.4-8.2); Sodium Level 138 mmol/L (136-145); Triglycerides 139 mg/dL; Very Low Density Lipoprotein 28 mg/dL (5-40)
[2021-04-22 15:56] LABS: Hemoglobin A1c 5.5 % (3.8-5.6)
[2021-04-24 14:29] LABS: MG Sendout 1.5 mg/dL (1.6-2.3)
== END 2021-04-22 23:59 | disposition home or self-care (01) ==
LOC: BIMLAB 14:11
PROVIDERS: PCP Internal Medicine; Referring Provider Internal Medicine; Visit Provider Internal Medicine
DX: I10 Essential (primary) hypertension (principal); I63.9 Cerebral infarction, unspecified; E11.9 Type 2 diabetes mellitus without complications; E78.5 Hyperlipidemia, unspecified
CPT/HCPCS: 80053; 80061; 83036; 83735; 85025

== ENCOUNTER 2021-04-24 12:19 | Emergency (ER) | payer MEDICARE, SELFPAY ==
[2021-04-24 12:20] VITALS: BP 208/80; PULSE 54; RESP 18; TEMP 36.1; O2SAT 99; BMI 24.4
[2021-04-24 12:31] VITALS: BP 201/80; PULSE 53; RESP 16; O2SAT 97
[2021-04-24] MEDS: hydrALAZINE 20 MG/ML Vial 5 MG IV (13:35)
[2021-04-24] MEDS: cloNIDine HCl 0.1 MG Tablet PO (14:36)
[2021-04-24 14:39] VITALS: BP 203/80; PULSE 61; RESP 15; O2SAT 96
[2021-04-24 16:05] VITALS: BP 149/63; PULSE 53; RESP 13; O2SAT 95
--- NOTE | 2021-04-24 16:40 | EX.ED.DYSGE1 ---
HPI History of Present Illness Chief Complaint: Hypertension Narrative Narrative: 80-year-old male presenting with hypertension. He states this is a chronic issue. He has no symptoms of it. He states he is currently on metoprolol 75 mg p.o. daily, valsartan 320 mg daily, amlodipine 10 mg p.o. daily. His medications were adjusted weeks ago but he has not had a response in his blood pressure medication. He showed up at his physician's office today and was told to come to the ER because his physician did not want to lower his heart rate by changing his medications. He denies chest pain, palpitations, shortness of breath, fever, chills, nausea, vomiting, abdominal pain. He does have a history of stroke for which she has residual left-sided deficits. These are unchanged. [facility] Medical History Diabetes mellitus HLD (hyperlipidemia) HTN (hypertension) Hydrocele in adult Osteoarthritis Recurrent inguinal hernia of right side without obstruction or gangrene Restless legs Right pontine CVA Home Medications multivitamin,rc-lobw-rxephfoj 1 tab PO QDAY 03/03/17 [History Last Taken 12/30/20] valsartan 320 mg PO QHS 12/31/20 [History Last Taken 12/30/20] aspirin 81 mg PO BREAKFAST 01/02/21 [History Last Taken Unknown] Arthritis Pain Compound 0 click TOPICAL BID #0 01/27/21 [Rx Last Taken Unknown] Basaglar KwikPen U-100 Insulin 20 unit SUBCUT DAILY #0 ml 01/27/21 [Rx Last Taken 12/31/20] latanoprost 1 drp EACH EYE HS #0 ml 01/27/21 [Rx Last Taken Unknown] metformin See Rx Instructions .ROUTE .COMPLEX #45 tab 01/27/21 [Rx Last Taken 12/30/20] amlodipine 5 mg tablet 5 mg PO BID #180 tab 02/04/21 [Rx Last Taken Unknown] pramipexole 0.125 mg tablet 0.125 mg PO QHS #90 tab 02/04/21 [Rx Last Taken Unknown] sertraline 50 mg tablet 75 mg PO DAILY #135 tab 02/04/21 [Rx Last Taken Unknown] Handicap Placard #1 ea 02/12/21 [Rx Last Taken Unknown] ezetimibe 10 mg tablet 10 mg PO DAILY #90 tab 02/23/21 [Rx Last Taken Unknown] gabapentin 100 mg capsule 100 mg PO BID #40 cap 02/26/21 [Rx Last Taken Unknown] gabapentin 300 mg capsule 300 mg PO 2100 #20 cap 02/26/21 [Rx Last Taken Unknown] Hospital bed See Rx Instructions .ROUTE .COMPLEX #1 % 03/02/21 [Rx Last Taken Unknown] metoprolol tartrate 25 mg tablet 75 mg PO DAILY #270 tab 04/06/21 [Rx Last Taken Unknown] potassium chloride 20 mEq tablet,extended release 20 meq PO DAILY #7 tab 04/07/21 [Rx Last Taken Unknown] furosemide 20 mg tablet 20 mg PO Q OTHER DAY #5 tab 04/21/21 [Rx Last Taken Unknown] clonidine HCl 0.1 mg PO BID #60 tab 04/24/21 [Rx Last Taken Unknown] Allergy/AdvReac Type Severity Reaction Status Date / Time meloxicam [From Mobic] Allergy Intermediate itching Verified 04/24/21 12:22 pravastatin [From Pravachol] AdvReac Mild myalgia Verified 04/24/21 12:22 cholestyramine AdvReac hypoglycemi Verified 04/24/21 12:22 a Family History Mother Hypertension Cancer Father Heart disease Diabetes Surgical History S/P inguinal hernia repair S/P lumbar laminectomy Social History household members: spouse and other details: Abigail is his 's name housing: house number of children: 2 current occupational status: retired and other details: worked for [employer] prior to retiring leisure activities: other Smoking Status: Never smoker Electronic Cigarette Use: not used alcohol intake: former substance use type: does not use what type of physical activity do you participate in: walking frequency: 1-2 times per week ROS ROS ED Constitutional Constitutional ED: Denies chills, fever(s) or sweats Eyes Eyes: Denies blurry vision or change in vision ENT ENT ED: Denies ear pain or sore throat Cardiovascular Cardiovascular: Denies chest pain, palpitations or racing heartbeat Respiratory/Chest Respiratory/Chest: Denies cough, dyspnea or sputum Gastrointestinal Gastrointestinal: Denies abdominal pain, constipation, diarrhea, nausea or vomiting Genitourinary Genitourinary ED: Denies dysuria, hematuria or urinary frequency Musculoskeletal Musculoskeletal: Denies arthralgias, myalgias or neck pain Integumentary Denies abscess, Abrasions or rash Neurologic Neurologic: Denies headache(s), paresthesias or weakness Psychiatric Psychiatric: Denies anxiety, depression, suicidal ideation or suicidal thoughts Endocrine Endocrinology: Denies polydipsia or polyuria EXAM Physical Exam Const Vital Signs: 04/24/21 12:20 04/24/21 12:31 04/24/21 12:32 Temperature 97 F L Temperature Source Temporal Pulse Rate 54 L 53 L Respiratory Rate 18 16 Respiratory Effort Normal Respiratory Pattern Normal Blood Pressure 208/80 H 201/80 H Blood Pressure Mean 122 120 Pulse Ox 99 97 Oxygen Delivery Method Room Air Room Air 04/24/21 14:39 04/24/21 16:05 04/24/21 16:46 Temperature Temperature Source Pulse Rate 61 53 L 72 Respiratory Rate 15 13 15 Respiratory Effort Respiratory Pattern Blood Pressure 203/80 H 149/63 H 146/87 H Blood Pressure Mean 121 91 Pulse Ox 96 95 95 Oxygen Delivery Method Room Air Room Air General Appearance ED: Negative for pallor HEENT Reports normocephalic, head/scalp atraumatic and moist mucous membranes Eyes PERRL and EOMs intact bilaterally Neck no lymphadenopathy and supple Chest Wall inspection of chest normal and palpation of chest normal Resp normal respiratory effort and clear to auscultation bilaterally Auscultation: Negative for rales, rhonchi or wheezes Cardio regular rate and regular rhythm GI normal to inspection, nondistended, normoactive bowel sounds and non-distended Auscultation: normoactive bowel sounds Palpation: soft Narrative: Deferred Extremity normal to inspection General Extremety ED: Negative for edema or tenderness General Extremity: Negative for edema Neuro oriented x3 and CN's II-XII intact bilaterally Sensorium / Orientation: alert Motor Exam: strength 5/5 throughout Psych mental status grossly normal Attitude: No agitated Skin no rashes or lesions noted and no wounds General Skin Exam: Negative for jaundice or pallor MDM MDM MDM Narrative Medical decision making narrative: Patient presenting with asymptomatic hypertension. I did review his medication list with him. He was given 5 hydralazine initially which did not change his blood pressure. He was then followed with 10 mg of hydralazine which also did not improve his blood pressure. I spoke with his primary care physician about medications that we could try to lower his blood pressure for home so we will get out in the ER and he recommended giving the patient clonidine 0.1 mg p.o. twice daily. Given that his blood pressure has not improved with hydralazine I did give him a dose of clonidine in the ER his blood pressure improved dramatically from 04/15/2007 to 146/87. I feel like this is in a reasonable improvement. Patient was given a prescription for clonidine p.o. twice daily 0.1 mg. Patient is to keep a blood pressure diary and follow-up with his primary care physician. I do not believe he needed lab work or imaging. He recently had lab work outpatient this week on Tuesday and it was all normal. Impression: 1. Hypertension?established Discharge Plan Triage Chief Complaint: Hypertension ED Provider: Jean Pierre Pizano Dx/Rx/DC Orders Instructions: ED Hypertension, Established Prescriptions: New clonidine HCl 0.1 mg tablet 0.1 mg PO BID Qty: 60 RF: 0 No Action multivitamin,yz-dvsk-brhydttq tablet tablet 1 tab PO QDAY RF: 0 amlodipine 5 mg tablet 5 mg PO BID Qty: 180 RF: 3 pramipexole 0.125 mg tablet 0.125 mg PO QHS Qty: 90 RF: 3 sertraline 50 mg tablet 75 mg PO DAILY Qty: 135 RF: 3 metoprolol tartrate 25 mg tablet 75 mg PO DAILY Qty: 270 RF: 1 Hospital bed See Rx Instructions .ROUTE .COMPLEX Qty: 1 RF: 0 valsartan 320 mg tablet 320 mg PO QHS RF: 0 aspirin 81 mg tablet,chewable 81 mg PO BREAKFAST RF: 0 latanoprost 0.005 % Drops 1 drp EACH EYE HS Qty: 0 RF: 0 Arthritis Pain Compound 0 click topical BID Qty: 0 RF: 0 metformin 500 mg tablet See Rx Instructions .ROUTE .COMPLEX Qty: 45 RF: 0 Basaglar KwikPen U-100 Insulin 100 unit/mL (3 mL) insulin pen 20 unit SUBCUT DAILY Qty: 0 RF: 0 (DME) Handicap Placard See Rx Instructions .Route .MEDSUPPLY Qty: 1 RF: 0 ezetimibe [Zetia] 10 mg tablet 10 mg PO DAILY Qty: 90 RF: 3 gabapentin 300 mg capsule 300 mg PO 2100 Qty: 20 RF: 0 gabapentin 100 mg capsule 100 mg PO BID Qty: 40 RF: 0 potassium chloride 20 mEq tablet extended release 20 meq PO DAILY Qty: 7 RF: 0 furosemide 20 mg tablet 20 mg PO Q OTHER DAY Qty: 5 RF: 0 Primary Care Provider: Jennifer Watt Referrals: Jennifer Watt MD [Primary Care Provider] - Disposition Disposition: Home, Self Care Discharge Date/Time: 04/24/21 16:47
[2021-04-24 16:46] VITALS: BP 146/87; PULSE 72; RESP 15; O2SAT 95
== END 2021-04-24 16:47 | disposition home or self-care (01) ==
PROVIDERS: Emergency Provider Student in an Organized Health Care Education/Training Program; PCP Internal Medicine; Visit Provider Student in an Organized Health Care Education/Training Program
DX: I10 Essential (primary) hypertension (principal); E11.9 Type 2 diabetes mellitus without complications; E78.5 Hyperlipidemia, unspecified; G25.81 Restless legs syndrome; I69.90 Unspecified sequelae of unspecified cerebrovascular disease; M19.90 Unspecified osteoarthritis, unspecified site; Z79.82 Long term (current) use of aspirin; Z79.84 Long term (current) use of oral hypoglycemic drugs; Z79.899 Other long term (current) drug therapy
CPT/HCPCS: 96374; 99283; A4216

== ENCOUNTER 2021-04-30 07:55 | Outpatient (CLI) | payer MEDICARE, SELFPAY ==
--- NOTE | 2021-04-30 07:56 | RDU_ITS ---
Reason For Study: Evaluate renovascular disease, HTN Right Renal Artery Left Renal Artery Right renal artery ostium 282.8/36.7 Left renal artery ostium 164.5/22.3 RSV/EDV. PSV/EDV. Right renal artery proximal 241/22.8 Left renal artery proximal PSV/EDV PSV/EDV. 132.3/12.6 . Right renal artery mid 241/27.4 Left renal artery mid 129.1/15.8 PSV/EDV. PSV/EDV . Right renal artery distal 120.4/25.4 Left renal artery distal 151.7/19. PSV/EDV. PSV/EDV. Right RAR 3.31. Left RAR 1.93. Right Renal Parenchyma Left Renal Parenchyma Upper Pole Medula 26.4/8.1 PSV/EDV. Left upper pole medulla 47.4/7.2 Right upper pole medulla EDR 0.31 . PSV/EDV . Right upper pole medulla R.I. 0.69 . Left upper pole medulla EDR 0.15 . Upper Jordy Cortx 19.1/6.3 PSV/EDV. Left upper pole medulla R.I. 0.85 . Right upper pole cortex EDR 0.33 . UP Cortex 29.1/6.3 PSV/EDV. Right upper pole cortex R.I. 0.67 . Left upper pole cortex EDR 0.22 . Right lower Pole medulla 25.5/8.1 Left upper pole cortex R.I. 0.78 . PSV/EDV . Left lower Pole medulla 41/6.3 Right lower pole medulla EDR 0.32 . PSV/EDV . Right lower pole medulla R.I. 0.68 . Left lower pole medulla EDR 0.15 . Lower Pole Cortex 17.3/5.4 PSV/EDV. Left lower pole medulla R.I. 0.85 . Right lower pole cortex EDR 0.31 . Lower Pole Cortx 21.8/3.6 PSV/EDV. Right lower pole cortex R.I. 0.69 . Left lower pole cortex EDR 0.16 . Right Renal Hilar Left lower pole cortex R.I. 0.84 . Right Hilar avg 60.1/18.1 PSV/EDV. Left Renal Hilar Right hilar acceleration time 50 LT Hilar avg 67.1/10.1 PSV/EDV . m/sec. Left hilar acceleration time 70 Right Renal Dimensions m/sec. Right kidney size 11.82 cm . Left Renal Dimensions Right cortical dimension 1.81 cm . Left kidney size 10.39 cm . Nonvascularized structure noted on Left cortical dimension 1.68 cm . the lower pole of the kidney that Nonvascularized structure noted in measure 4.18 x 4.72 cm. the upper pole of the kidney measures 2.75 x 2.16 cm. Aorta Proximal abdominal aorta 1.91 x 1.94 cm . Proximal abdominal aorta peak systolic velocity is 85.4 cm/sec . Aorta mid, 3.06 x 3.01 x 2.91 cm. Distal abdominal aorta 1.57 x 1.84 cm . Distal abdominal aorta peak systolic velocity is 41.6 cm/sec . 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
[2021-04-30 10:08] LABS: Potassium 3.6 mmol/L (3.5-5.1)
[2021-05-11 20:23] LABS: Immunofixation Urine Comment: (.)
== END 2021-04-30 23:59 | disposition home or self-care (01) ==
PROVIDERS: Psychiatry & Neurology Neurology; PCP Internal Medicine; Referring Provider Internal Medicine; Visit Provider Internal Medicine
DX: R60.9 Edema, unspecified (principal); E11.29 Type 2 diabetes mellitus with other diabetic kidney complication; E11.42 Type 2 diabetes mellitus with diabetic polyneuropathy; R09.89 Other specified symptoms and signs involving the circulatory and respiratory systems; I10 Essential (primary) hypertension; R80.9 Proteinuria, unspecified; E87.6 Hypokalemia
CPT/HCPCS: 36415; 82784; 84132; 84165; 86334; 86335; 93975

== ENCOUNTER 2021-05-01 13:28 | Emergency (ER) | payer MEDICARE, SELFPAY ==
[2021-05-01 13:29] VITALS: BP 166/75; PULSE 46; RESP 15; TEMP 36.2; O2SAT 99; BMI 23.8
[2021-05-01 13:43] VITALS: BP 170/78; PULSE 47; RESP 9; O2SAT 96
--- NOTE | 2021-05-01 14:22 | EKG12_ITS ---
Test Reason : PALP Blood Pressure : / mmHG Vent. Rate : 047 BPM Atrial Rate : 047 BPM P-R Int : 164 ms QRS Dur : 090 ms QT Int : 500 ms P-R-T Axes : 033 060 040 degrees QTc Int : 442 ms Sinus bradycardia Otherwise normal ECG Confirmed by ADÁN STRONG, MAKENNA ([id number]), editor city AP NUNEZ ([id number]) on 05/06/2021 12:32:21 P M Referred By: ELIZABETH Confirmed By:JOSHUA MCCAIN MD
[2021-05-01 14:39] VITALS: BP 177/64; PULSE 47; RESP 19; O2SAT 96
[2021-05-01 14:50] LABS: Absolute Lymphocyte Count 2.05 X10^3/uL (0.83-4.51); Absolute Neutrophil Count 4.7 X10^3/uL (2.0-7.7); Basophil# 0.06 X10^3/uL; Basophil% 0.8 % (0-1); Eosinophil# 0.23 X10^3/uL; Eosinophils% 2.9 % (0-5); Hematocrit 37.8 % (40-54); Hemoglobin 12.2 g/dL (13.0-16.5); Lymphocyte # 2.05 X10^3/ul (0.83-4.51); Lymphocyte % 25.7 % (19-41); Mean Corp Hgb Conc 32.3 g/dL (32-36); Mean Corpuscular Hgb 29.3 pg (27.0-32.0); Mean Corpuscular Volume 90.6 fL (80-94); Mean Platelet Vol. 12.1 fl (6.2-12.0); Monocyte# 0.91 X10^3/uL; Monocyte% 11.4 % (0-10); NRBC Flagged by Analyzer 0 % (0-5); Neutrophil # 4.69 X10^3/uL (2.7-7.7); Neutrophil % 58.8 % (47-70); Platelet Count 239 K/mm3 (150-450); RBC Distribution Width SD 50.1 fl (35.1-43.9); Red Blood Count 4.17 M/mm3 (4.6-6.2)
[2021-05-01 15:00] VITALS: BP 177/64; PULSE 47; RESP 15; O2SAT 96
[2021-05-01 15:05] LABS: Bacteria 0 SEEN /hpf (None Seen); Mucous, Urine 0 SEEN /hpf (<or=2+); Red Blood Cells-Urine 0 SEEN /hpf (0-5); Squamous Epithelial Cells - UA 0 SEEN /hpf (0-5); White Blood Cells 0 SEEN /hpf (0-5)
--- NOTE | 2021-05-01 15:05 | RAD_ITS ---
STUDY: X-RAY CHEST REASON FOR EXAM: Male, 80 years old. Palpitations TECHNIQUE: Single AP portable view of the chest. COMPARISON: Comparison is made with prior study 12/31/2020. FINDINGS: EKG electrodes are seen There is elevation of the right hemidiaphragm. Mild increased markings at the left lung base suggestive of left basilar atelectasis. There is no demonstrated pleural abnormality. Normal size heart. Normal mediastinum and arianne. Normal visualized pulmonary arteries. There is atherosclerotic calcification of the aortic arch with tortuosity. There are diffuse degenerative changes of the visualized thoracic spine. Normal visualized ribs, clavicles, and shoulders. There is no demonstrated abnormality of the visualized soft tissue structures of the upper abdomen. RAD/Chest 1 View (Portable) IMPRESSION: Findings suggestive of a mild degree of left basilar atelectasis. Electronically Signed: Micah Murrieta MD at 15:23 EST ,
[2021-05-01 15:08] LABS: Color, Urine Yellow (Yellow); Glucose, Dipstick Normal (Normal); Ketone-Dipstick Negative (Negative); Leukocyte Esterase-Dipstick Negative /ul (Negative); Nitrite-Dipstick Negative (Negative); Occult Blood-Urine 10 /ul (Negative); Protein-Dipstick 100 mg/dl (Negative); Urine Bilirubin Dipstick Negative (Negative); Urine Clarity Clear (Clear); Urine Urobilinogen Normal (Normal); Urine pH 6.5 (5.0 - 8.0)
[2021-05-01 15:14] LABS: AST(SGOT) 14 U/L (15-37); Alanine Aminotransfer ALT/SGPT 23 U/L (16-61); Albumin, Serum 3.4 g/dL (3.2-5.0); Alkaline Phosphatase 60 U/L (45-117); Anion Gap 8 (5-15); BUN 20 mg/dL (7-18); BUN/Creat Ratio 16.1 RATIO (10-20); Calcium,Total 8.9 mg/dL (8.5-10.1); Chloride 101 mmol/L (98-107); Creatinine, Serum 1.24 mg/dL (0.70-1.30); EST Glomerular Filtration Rate 59 mL/min (>60); Est Glom Filt Rate - Afr Amer 72 mL/min (>60); Estimated Creatinine Clearance 51.28 ml/min; Globulin 3.5 g/dL (2.2-4.2); Glucose 89 mg/dL (74-106); Potassium 3.8 mmol/L (3.5-5.1); Protein, Total 6.9 g/dL (6.4-8.2); Sodium Level 140 mmol/L (136-145); Troponin-I HS 11 pg/mL (3.0-78.0)
--- NOTE | 2021-05-01 15:59 | EX.ED.DYSGE1 ---
HPI History of Present Illness Chief Complaint: Palpitations Informant: patient Onset/Context/Timing Onset: Weeks (2-3) Context: Gradual Onset Timing: Continuous Quality: Slow heart rate Location: Chest Worsened by: Nothing Relieved by: Nothing Narrative Narrative: Patient presents with palpitations that have been constant for the past 2 to 3 weeks. Patient states that he has elevated blood pressures but low heart rate. Patient states his primary care physician has been adjusting his medications to help with this. Patient states he feels his heart is beating slow. Patient states nothing makes his symptoms better nothing makes them worse. Patient denies any fevers or chills. Patient denies any nausea or vomiting. Patient denies any shortness of breath. [facility] Medical History Absent pedal pulses Acute left-sided muscle weakness Depression Dysphagia Essential hypertension Facial droop due to acute stroke History of CVA (cerebrovascular accident) (12/2020) Hydrocele in adult Hyperlipidemia Normocytic normochromic anemia Osteoarthritis Peripheral vascular occlusive disease Proteinuria due to type 2 diabetes mellitus Recurrent inguinal hernia of right side without obstruction or gangrene Restless legs Right pontine CVA Skin lesion of face Type 2 diabetes mellitus Home Medications multivitamin,vl-wper-nhnvwhlw 1 tab PO QDAY 03/03/17 [History Last Taken 12/30/20] valsartan 320 mg PO QHS 12/31/20 [History Last Taken 12/30/20] aspirin 81 mg PO BREAKFAST 01/02/21 [History Last Taken Unknown] Arthritis Pain Compound 0 click TOPICAL BID #0 01/27/21 [Rx Last Taken Unknown] Ortizaglmarlen Ortega U-100 Insulin 20 unit SUBCUT DAILY #0 ml 01/27/21 [Rx Last Taken 12/31/20] latanoprost 1 drp EACH EYE HS #0 ml 01/27/21 [Rx Last Taken Unknown] metformin See Rx Instructions .ROUTE .COMPLEX #45 tab 01/27/21 [Rx Last Taken 12/30/20] amlodipine 5 mg tablet 5 mg PO BID #180 tab 02/04/21 [Rx Last Taken Unknown] pramipexole 0.125 mg tablet 0.125 mg PO QHS #90 tab 02/04/21 [Rx Last Taken Unknown] sertraline 50 mg tablet 75 mg PO DAILY #135 tab 02/04/21 [Rx Last Taken Unknown] Handicap Placard #1 ea 02/12/21 [Rx Last Taken Unknown] ezetimibe 10 mg tablet 10 mg PO DAILY #90 tab 02/23/21 [Rx Last Taken Unknown] gabapentin 100 mg capsule 100 mg PO BID #40 cap 02/26/21 [Rx Last Taken Unknown] gabapentin 300 mg capsule 300 mg PO 2100 #20 cap 02/26/21 [Rx Last Taken Unknown] Hospital bed See Rx Instructions .ROUTE .COMPLEX #1 % 03/02/21 [Rx Last Taken Unknown] metoprolol tartrate 25 mg tablet 75 mg PO DAILY #270 tab 04/06/21 [Rx Last Taken Unknown] potassium chloride 20 mEq tablet,extended release 20 meq PO DAILY #7 tab 04/07/21 [Rx Last Taken Unknown] furosemide 20 mg tablet 20 mg PO Q OTHER DAY #5 tab 04/21/21 [Rx Last Taken Unknown] clonidine HCl 0.1 mg PO BID #60 tab 04/24/21 [Rx Last Taken Unknown] Allergy/AdvReac Type Severity Reaction Status Date / Time meloxicam [From Mobic] Allergy Intermediate itching Verified 05/01/21 13:29 pravastatin [From Pravachol] AdvReac Mild myalgia Verified 05/01/21 13:29 cholestyramine AdvReac hypoglycemi Verified 05/01/21 13:29 a Family History Mother Hypertension Cancer Father Heart disease Diabetes Surgical History S/P inguinal hernia repair S/P lumbar laminectomy Social History household members: spouse and other details: Abigail is his 's name housing: house number of children: 2 current occupational status: retired and other details: worked for [employer] prior to retiring leisure activities: other Smoking Status: Never smoker Electronic Cigarette Use: not used alcohol intake: former substance use type: does not use what type of physical activity do you participate in: walking frequency: 1-2 times per week ROS ROS ED Constitutional Constitutional ED: Denies chills or fever(s) Eyes Eyes: Denies blurry vision or change in vision ENT ENT ED: Denies rhinorrhea or sore throat Cardiovascular Cardiovascular: Reports palpitations; Denies chest pain Respiratory/Chest Respiratory/Chest: Denies cough or dyspnea Gastrointestinal Gastrointestinal: Denies nausea or vomiting Genitourinary Genitourinary ED: Denies dysuria or hematuria Musculoskeletal Musculoskeletal: Denies back pain or neck pain Integumentary Denies abscess or rash Neurologic Neurologic: Denies headache(s) or weakness Allergic/Immunologic Allergic/Immunologic ED: Denies mouth swelling or urticaria EXAM Physical Exam Const Vital Signs: 05/01/21 13:29 05/01/21 13:43 05/01/21 14:39 Temperature 97.2 F L Temperature Source Temporal Pulse Rate 46 L 47 L 47 L Respiratory Rate 15 9 L 19 H Respiratory Effort Respiratory Pattern Blood Pressure 166/75 H 170/78 H 177/64 H Blood Pressure Mean 105 108 101 Pulse Ox 99 96 96 Oxygen Delivery Method Room Air Room Air Room Air 05/01/21 14:40 05/01/21 15:00 05/01/21 16:00 Temperature Temperature Source Pulse Rate 47 L 47 L Respiratory Rate 15 13 Respiratory Effort Normal Respiratory Pattern Normal Blood Pressure 177/64 H 176/72 H Blood Pressure Mean 101 106 Pulse Ox 96 96 Oxygen Delivery Method Room Air Room Air Positive well nourished and well developed General Appearance ED: well developed HEENT Reports moist mucous membranes Neck supple and no JVD Resp normal respiratory effort and clear to auscultation bilaterally Cardio regular rhythm and no murmurs Rate: bradycardia GI normal to inspection, nondistended, normoactive bowel sounds and non-tender Palpation: soft Extremity normal to inspection General Extremety ED: Negative for edema or tenderness General Extremity: Negative for edema Neuro oriented x3, CN's II-XII intact bilaterally and no sensory deficits noted Sensorium / Orientation: alert Motor Exam: strength 5/5 throughout Psych mental status grossly normal Skin no rashes or lesions noted MDM MDM MDM Narrative Medical decision making narrative: EKG was obtained. On my interpretation, it showed a normal sinus rhythm with a rate of 47. DE interval, QRS interval, and QTc intervals were all normal. [place] was normal. There are no acute ST or T wave changes. Portable 1 view chest x-ray was obtained. On my interpretation, lung bedoya show some mild left basilar atelectasis. There is normal cardiac silhouette. Bony thorax is normal. There is no acute process noted. Radiologist also interpreted the x-ray and agrees. CBC shows a mild anemia with a hemoglobin of 12.2 hematocrit 37.8. Comprehensive metabolic profile was obtained was within normal limits. Urinalysis does not show any evidence of urinary tract infection. High-sensitivity troponin was normal at 11. Case was discussed with Dr. Watt. He recommended decreasing the metoprolol to 25 mg twice daily and increasing the amlodipine to 10 mg twice daily. Patient will follow up with Dr. Sainz next week. Patient and spouse understood and were agreeable with the plan. All questions were answered. Lab Data Attestation: I reviewed the patient's lab results. Labs: Laboratory Results - last 24 hr 05/01/21 05/01/21 05/01/21 13:33 13:33 15:00 WBC 8.0 RBC 4.17 L Hgb 12.2 L Hct 37.8 L MCV 90.6 MCH 29.3 MCHC 32.3 RDW Std Deviation 50.1 H RDW Coeff of Cait 15.0 H Plt Count 239 MPV 12.1 H Immature Gran % (Auto) 0.400 Neut % (Auto) 58.8 Lymph % (Auto) 25.7 [place] % (Auto) 11.4 H Eos % (Auto) 2.9 Baso % (Auto) 0.8 Absolute Neuts (auto) 4.7 Absolute Lymphs (auto) 2.05 Nucleated RBC % 0 Sodium 140 Potassium 3.8 Chloride 101 Carbon Dioxide 31.0 Anion Gap 8 BUN 20 H Creatinine 1.24 Estim Creat Clear Calc 51.28 Est GFR (MDRD) Af Amer 72 Est GFR (MDRD) Non-Af 59 L BUN/Creatinine Ratio 16.1 Glucose 89 Calcium 8.9 Total Bilirubin 0.40 AST 14 L ALT 23 Alkaline Phosphatase 60 Troponin I High Sens 11 Total Protein 6.9 Albumin 3.4 Globulin 3.5 Albumin/Globulin Ratio 1.0 Urine Color Yellow Urine Clarity Clear Urine pH 6.5 Ur Specific Conrad 1.010 Urine Protein 100 H Urine Glucose (UA) Normal Urine Ketones Negative Urine Occult Blood 10 H Urine Nitrite Negative Urine Bilirubin Negative Urine Urobilinogen Normal Ur Leukocyte Esterase Negative Urine RBC 0 SEEN Urine WBC 0 SEEN Ur Squamous Epith Cells 0 SEEN Urine Bacteria 0 SEEN Urine Mucus 0 SEEN Radiography Chest X-Ray - ED: 1 View, Read by ED Physician, Read by Radiologist and No Acute Disease Diagnostic Testing: Clinical Impression(s) from Imaging Studies Chest X-Ray 05/01/21 15:05 IMPRESSION: Findings suggestive of a mild degree of left basilar atelectasis. Electronically Signed: Micah Murrieta MD at 15:23 EST , EKG Initial EKG: Attestation: I personally reviewed and interpreted this EKG as follows: Interpretation: No Acute Injury Pattern and Sinus Bradycardia (47) Discharge Plan Triage Chief Complaint: Palpitations ED Provider: Jesús Rodrigez Dx/Rx/DC Orders Clinical Impression: Bradycardia, Essential hypertension Instructions: ED Bradycardia, ED Hypertension, Established Prescriptions: No Action multivitamin,zv-tqjr-xawoxpoh tablet tablet 1 tab PO QDAY RF: 0 amlodipine 5 mg tablet 5 mg PO BID Qty: 180 RF: 3 pramipexole 0.125 mg tablet 0.125 mg PO QHS Qty: 90 RF: 3 sertraline 50 mg tablet 75 mg PO DAILY Qty: 135 RF: 3 metoprolol tartrate 25 mg tablet 75 mg PO DAILY Qty: 270 RF: 1 Hospital bed See Rx Instructions .ROUTE .COMPLEX Qty: 1 RF: 0 valsartan 320 mg tablet 320 mg PO QHS RF: 0 aspirin 81 mg tablet,chewable 81 mg PO BREAKFAST RF: 0 latanoprost 0.005 % Drops 1 drp EACH EYE HS Qty: 0 RF: 0 Arthritis Pain Compound 0 click topical BID Qty: 0 RF: 0 metformin 500 mg tablet See Rx Instructions .ROUTE .COMPLEX Qty: 45 RF: 0 Basaglar KwikPen U-100 Insulin 100 unit/mL (3 mL) insulin pen 20 unit SUBCUT DAILY Qty: 0 RF: 0 clonidine HCl 0.1 mg tablet 0.1 mg PO BID Qty: 60 RF: 0 (DME) Handicap Placard See Rx Instructions .Route .MEDSUPPLY Qty: 1 RF: 0 ezetimibe [Zetia] 10 mg tablet 10 mg PO DAILY Qty: 90 RF: 3 gabapentin 300 mg capsule 300 mg PO 2100 Qty: 20 RF: 0 gabapentin 100 mg capsule 100 mg PO BID Qty: 40 RF: 0 potassium chloride 20 mEq tablet extended release 20 meq PO DAILY Qty: 7 RF: 0 furosemide 20 mg tablet 20 mg PO Q OTHER DAY Qty: 5 RF: 0 Primary Care Provider: Jennifer Watt Referrals: Jennifer Watt MD [Primary Care Provider] - 5-7 Days Activity Restrictions/Additional Instructions: Decrease your metoprolol to 25 mg twice daily. Increase your amlodipine to 10 mg twice daily. Disposition Disposition: Home, Self Care
[2021-05-01 16:00] VITALS: BP 176/72; PULSE 47; RESP 13; O2SAT 96
[2021-05-01 17:10] VITALS: BP 187/73; PULSE 49; O2SAT 96
== END 2021-05-01 17:11 | disposition home or self-care (01) ==
PROVIDERS: Emergency Provider Emergency Medicine; PCP Internal Medicine; Visit Provider Emergency Medicine
DX: R00.1 Bradycardia, unspecified (principal); E11.51 Type 2 diabetes mellitus with diabetic peripheral angiopathy without gangrene; D64.9 Anemia, unspecified; I10 Essential (primary) hypertension; E78.5 Hyperlipidemia, unspecified; F32.A Depression, unspecified; Z86.73 Personal history of transient ischemic attack (TIA), and cerebral infarction without residual deficits; M19.90 Unspecified osteoarthritis, unspecified site; Z79.84 Long term (current) use of oral hypoglycemic drugs; Z79.82 Long term (current) use of aspirin; Z79.899 Other long term (current) drug therapy
CPT/HCPCS: 71045; 80053; 81001; 84484; 85025; 93005; 99283

== ENCOUNTER 2021-05-02 14:04 | Emergency (ER) | payer MEDICARE, SELFPAY ==
[2021-05-02 14:06] VITALS: BP 175/68; PULSE 47; RESP 16; TEMP 36.2; O2SAT 99; BMI 23.7
--- NOTE | 2021-05-02 14:37 | EKG12_ITS ---
Test Reason : Blood Pressure : / mmHG Vent. Rate : 045 BPM Atrial Rate : 045 BPM P-R Int : 164 ms QRS Dur : 088 ms QT Int : 514 ms P-R-T Axes : 033 047 039 degrees QTc Int : 444 ms Sinus bradycardia Otherwise normal ECG Confirmed by ADÁN STRONG, MAKENNA ([id number]), business editor AP NUNEZ ([id number]) on 05/06/2021 12:35:31 P M Referred By: MERT Confirmed By:JOSHUA MCCAIN MD
--- NOTE | 2021-05-02 14:57 | EX.ED.DYSGE1 ---
HPI History of Present Illness Chief Complaint: General Illness Informant: patient and spouse/S.O. Narrative Narrative: Patient is an 80-year-old male with history of hypertension and stroke with residual left-sided deficits presenting for bradycardia. Patient had multiple blood pressure medication changes within the last week due to difficult to control hypertension. He was started on clonidine 0.1 mg twice a day last week. Yesterday he was seen in the ER for bradycardia. At that time he had a thorough work-up that was largely negative and his metoprolol was decreased from 50 mg every morning and 25 mg tartrate every evening to 25 mg twice daily. His Norvasc was increased to 10 mg twice a day. Patient states he felt better yesterday evening he felt better and this morning he took 50 mg of metoprolol because he was not sure if he was opposed to take the 2 pills together or separate. He is felt fine throughout the day however when he checked his vital signs at home his heart rate was in the low 40s and his blood pressure was again elevated. His heart rate had never been this well so his convinced him to come to the emergency room to be evaluated further. Patient states he currently feels well and has no physical complaints. Denies any associated chest pain, shortness of breath, increased fatigue or worsening neurologic symptoms. [facility] Medical History Absent pedal pulses Acute left-sided muscle weakness Depression Dysphagia Essential hypertension Facial droop due to acute stroke History of CVA (cerebrovascular accident) (12/2020) Hydrocele in adult Hyperlipidemia Normocytic normochromic anemia Osteoarthritis Peripheral vascular occlusive disease Proteinuria due to type 2 diabetes mellitus Recurrent inguinal hernia of right side without obstruction or gangrene Restless legs Right pontine CVA Skin lesion of face Type 2 diabetes mellitus Home Medications multivitamin,tc-omfu-vvqiiykd 1 tab PO QDAY 03/03/17 [History Last Taken 12/30/20] valsartan 320 mg PO QHS 12/31/20 [History Last Taken 12/30/20] aspirin 81 mg PO BREAKFAST 01/02/21 [History Last Taken Unknown] Arthritis Pain Compound 0 click TOPICAL BID #0 01/27/21 [Rx Last Taken Unknown] Ortizaglmarlen Ortega U-100 Insulin 20 unit SUBCUT DAILY #0 ml 01/27/21 [Rx Last Taken 12/31/20] latanoprost 1 drp EACH EYE HS #0 ml 01/27/21 [Rx Last Taken Unknown] metformin See Rx Instructions .ROUTE .COMPLEX #45 tab 01/27/21 [Rx Last Taken 12/30/20] pramipexole 0.125 mg tablet 0.125 mg PO QHS #90 tab 02/04/21 [Rx Last Taken Unknown] sertraline 50 mg tablet 75 mg PO DAILY #135 tab 02/04/21 [Rx Last Taken Unknown] Handicap Placard #1 ea 02/12/21 [Rx Last Taken Unknown] ezetimibe 10 mg tablet 10 mg PO DAILY #90 tab 02/23/21 [Rx Last Taken Unknown] gabapentin 100 mg capsule 100 mg PO BID #40 cap 02/26/21 [Rx Last Taken Unknown] gabapentin 300 mg capsule 300 mg PO 2100 #20 cap 02/26/21 [Rx Last Taken Unknown] Hospital bed See Rx Instructions .ROUTE .COMPLEX #1 % 03/02/21 [Rx Last Taken Unknown] potassium chloride 20 mEq tablet,extended release 20 meq PO DAILY #7 tab 04/07/21 [Rx Last Taken Unknown] furosemide 20 mg tablet 20 mg PO Q OTHER DAY #5 tab 04/21/21 [Rx Last Taken Unknown] clonidine HCl 0.1 mg PO BID #60 tab 04/24/21 [Rx Last Taken Unknown] amlodipine 10 mg PO BID 05/02/21 [History Last Taken Unknown] metoprolol tartrate 25 mg PO BID 05/02/21 [History Last Taken Unknown] Allergy/AdvReac Type Severity Reaction Status Date / Time meloxicam [From Mobic] Allergy Intermediate itching Verified 05/02/21 14:06 pravastatin [From Pravachol] AdvReac Mild myalgia Verified 05/02/21 14:06 cholestyramine AdvReac hypoglycemi Verified 05/02/21 14:06 a Family History Mother Hypertension Cancer Father Heart disease Diabetes Surgical History S/P inguinal hernia repair S/P lumbar laminectomy Social History household members: spouse and other details: Abigail is his 's name housing: house number of children: 2 current occupational status: retired and other details: worked for [employer] prior to retiring leisure activities: other Smoking Status: Never smoker Electronic Cigarette Use: not used alcohol intake: former substance use type: does not use what type of physical activity do you participate in: walking frequency: 1-2 times per week ROS ROS ED Constitutional Constitutional ED: Denies chills or fever(s) Eyes Eyes: Denies blurry vision ENT ENT ED: Denies rhinorrhea Cardiovascular Cardiovascular: Denies chest pain or palpitations Respiratory/Chest Respiratory/Chest: Denies cough or dyspnea Gastrointestinal Gastrointestinal: Denies abdominal pain or vomiting Musculoskeletal Musculoskeletal: Denies arthralgias or myalgias Integumentary Denies rash Neurologic Neurologic: Denies headache(s) or weakness EXAM Physical Exam Const Vital Signs: 05/02/21 14:06 05/02/21 14:33 Temperature 97.2 F L Temperature Source Oral Pulse Rate 47 L Respiratory Rate 16 Respiratory Effort Normal Non-Labored Respiratory Pattern Normal Blood Pressure 175/68 H Blood Pressure Mean 103 Pulse Ox 99 Oxygen Delivery Method Room Air Positive well nourished and well developed General Appearance ED: well developed HEENT Reports moist mucous membranes Negative for trauma Eyes PERRL and EOMs intact bilaterally Neck supple and no JVD Chest Wall inspection of chest normal Resp normal respiratory effort and clear to auscultation bilaterally Cardio regular rhythm and no murmurs Rate: bradycardia GI normal to inspection, nondistended, normoactive bowel sounds Neuro oriented x3 Neuro Narrative: left sided deficits - chronic Sensorium / Orientation: alert Psych mental status grossly normal Skin no rashes or lesions noted and no wounds MDM MDM Rhythm Strip Rhythm Strip: Sinus bradycardia Rate: 45 Ectopy: None EKG Initial EKG: Attestation: I personally reviewed and interpreted this EKG as follows: Interpretation: Sinus Bradycardia Comments: Sinus bradycardia rate of 45 Normal axis Normal intervals Normal ST segments Prior EKG tracings: available for review Prior: Unchanged Discharge Plan Triage Chief Complaint: General Illness ED Provider: Antonette Alonzo Dx/Rx/DC Orders Clinical Impression: Bradycardia, Essential hypertension Instructions: ED Bradycardia, ED Hypertension, Established Prescriptions: No Action multivitamin,ww-ndqv-otjyicbn tablet tablet 1 tab PO QDAY RF: 0 pramipexole 0.125 mg tablet 0.125 mg PO QHS Qty: 90 RF: 3 sertraline 50 mg tablet 75 mg PO DAILY Qty: 135 RF: 3 Hospital bed See Rx Instructions .ROUTE .COMPLEX Qty: 1 RF: 0 valsartan 320 mg tablet 320 mg PO QHS RF: 0 aspirin 81 mg tablet,chewable 81 mg PO BREAKFAST RF: 0 latanoprost 0.005 % Drops 1 drp EACH EYE HS Qty: 0 RF: 0 Arthritis Pain Compound 0 click topical BID Qty: 0 RF: 0 metformin 500 mg tablet See Rx Instructions .ROUTE .COMPLEX Qty: 45 RF: 0 Basaglar KwikPen U-100 Insulin 100 unit/mL (3 mL) insulin pen 20 unit SUBCUT DAILY Qty: 0 RF: 0 clonidine HCl 0.1 mg tablet 0.1 mg PO BID Qty: 60 RF: 0 amlodipine 5 mg tablet 10 mg PO BID RF: 0 metoprolol tartrate 25 mg tablet 25 mg PO BID RF: 0 (DME) Handicap Placard See Rx Instructions .Route .MEDSUPPLY Qty: 1 RF: 0 ezetimibe [Zetia] 10 mg tablet 10 mg PO DAILY Qty: 90 RF: 3 gabapentin 300 mg capsule 300 mg PO 2100 Qty: 20 RF: 0 gabapentin 100 mg capsule 100 mg PO BID Qty: 40 RF: 0 potassium chloride 20 mEq tablet extended release 20 meq PO DAILY Qty: 7 RF: 0 furosemide 20 mg tablet 20 mg PO Q OTHER DAY Qty: 5 RF: 0 Primary Care Provider: Jennifer Watt Referrals: Jennifer Watt MD [Primary Care Provider] - Activity Restrictions/Additional Instructions: Take your metoprolol 25 mg tartrate twice a day (once in the morning and once in the evening). If your heart rate is below 45, do not take the metoprolol. Check your blood pressure twice a day before taking your blood pressure medications. If your blood pressure is going below 120 for the top number you may hold your clonidine. If your blood pressure is going down, you were feeling dizzy, having chest pains or increased weakness/not feeling right, please return to the emergency room. Follow-up with your primary care doctor next week and follow-up with cardiology as scheduled. Disposition Disposition: Home, Self Care
[2021-05-02 15:06] VITALS: BP 150/56; PULSE 45; RESP 18; O2SAT 98
== END 2021-05-02 15:16 | disposition home or self-care (01) ==
PROVIDERS: Emergency Provider Emergency Medicine; PCP Internal Medicine; Visit Provider Emergency Medicine
DX: R00.1 Bradycardia, unspecified (principal); E11.9 Type 2 diabetes mellitus without complications; Z79.4 Long term (current) use of insulin; I10 Essential (primary) hypertension; F32.A Depression, unspecified; Z86.73 Personal history of transient ischemic attack (TIA), and cerebral infarction without residual deficits; Z79.82 Long term (current) use of aspirin; Z79.899 Other long term (current) drug therapy; Z79.84 Long term (current) use of oral hypoglycemic drugs
CPT/HCPCS: 93005; 99282

== ENCOUNTER 2021-05-22 19:01 | Emergency (ER) | payer MEDICARE, SELFPAY ==
[2021-05-22 19:02] VITALS: BP 208/75; PULSE 62; RESP 16; RESP 18; TEMP 37; BMI 23.6
[2021-05-22 19:50] VITALS: BP 192/76; PULSE 62; RESP 12
[2021-05-22] MEDS: cloNIDine HCl 0.2 MG Tablet PO (20:11)
[2021-05-22 20:35] VITALS: BP 186/80; PULSE 59
--- NOTE | 2021-05-22 20:42 | EX.ED.DYSGE1 ---
HPI History of Present Illness Chief Complaint: Hypertension Narrative Narrative: 80-year-old male presenting for evaluation of high blood pressure. He states his blood pressures have been high all day since afternoon. He states that his bottom numbers been in the 70-80 range however systolic number is about 200. This has been persistent. Patient has a history of high blood pressure and has had difficulty controlling it. He states he was on metoprolol 50 p.o. twice daily but this was recently changed to 75 mg p.o. twice daily. He is also on valsartan 320 mg p.o. daily and HCTZ 25 mg p.o. daily. He had his medications adjusted by Dr. Lucero. Patient states that he was previously on clonidine and this was discontinued. Since the patient saw Dr. Lucero he saw a vascular surgeon for his renal artery stenosis and he was told that he needed to be on only 3 medications to control his blood pressure. Patient does not have any symptoms. He has no headache, nausea, vomiting, dizziness, chest pain, shortness of breath. He states he is completely asymptomatic. [facility] Medical History Absent pedal pulses Acute left-sided muscle weakness Depression Dysphagia Essential hypertension Facial droop due to acute stroke History of CVA (cerebrovascular accident) (12/2020) Hydrocele in adult Hyperlipidemia Normocytic normochromic anemia Osteoarthritis Peripheral vascular occlusive disease Proteinuria due to type 2 diabetes mellitus Recurrent inguinal hernia of right side without obstruction or gangrene Restless legs Right pontine CVA Skin lesion of face Type 2 diabetes mellitus Home Medications multivitamin,ug-gmgz-fihkyifh 1 tab PO QDAY 03/03/17 [History Last Taken 12/30/20] valsartan 320 mg PO QHS 12/31/20 [History Last Taken 12/30/20] aspirin 81 mg PO BREAKFAST 01/02/21 [History Last Taken Unknown] Arthritis Pain Compound 0 click TOPICAL BID #0 01/27/21 [Rx Last Taken Unknown] Basaglar KwikPen U-100 Insulin 20 unit SUBCUT DAILY #0 ml 01/27/21 [Rx Last Taken 12/31/20] latanoprost 1 drp EACH EYE HS #0 ml 01/27/21 [Rx Last Taken Unknown] metformin See Rx Instructions .ROUTE .COMPLEX #45 tab 01/27/21 [Rx Last Taken 12/30/20] pramipexole 0.125 mg tablet 0.125 mg PO QHS #90 tab 02/04/21 [Rx Last Taken Unknown] sertraline 50 mg tablet 75 mg PO DAILY #135 tab 02/04/21 [Rx Last Taken Unknown] Handicap Placard #1 ea 02/12/21 [Rx Last Taken Unknown] ezetimibe 10 mg tablet 10 mg PO DAILY #90 tab 02/23/21 [Rx Last Taken Unknown] gabapentin 100 mg capsule 100 mg PO BID #40 cap 02/26/21 [Rx Last Taken Unknown] gabapentin 300 mg capsule 300 mg PO 2100 #20 cap 02/26/21 [Rx Last Taken Unknown] Hospital bed See Rx Instructions .ROUTE .COMPLEX #1 % 03/02/21 [Rx Last Taken Unknown] amlodipine 5 mg tablet 10 mg PO DAILY tab 05/13/21 [History Last Taken Unknown] hydrochlorothiazide 25 mg tablet 25 mg PO DAILY #30 tab 05/19/21 [Rx Last Taken Unknown] metoprolol tartrate 50 mg tablet 75 mg PO BID #90 tab 05/21/21 [Rx Last Taken Unknown] clonidine HCl 0.1 mg PO BID PRN #14 tab 05/22/21 [Rx Last Taken Unknown] Allergy/AdvReac Type Severity Reaction Status Date / Time meloxicam [From Mobic] Allergy Intermediate itching Verified 05/18/21 14:02 pravastatin [From Pravachol] AdvReac Mild myalgia Verified 05/18/21 14:02 cholestyramine AdvReac hypoglycemi Verified 05/18/21 14:02 a Family History Mother Hypertension Cancer Father Heart disease Diabetes Surgical History S/P inguinal hernia repair S/P lumbar laminectomy Social History household members: spouse and other details: Abigail is his 's name housing: house number of children: 2 current occupational status: retired and other details: worked for [employer] prior to retiring leisure activities: other Smoking Status: Never smoker Electronic Cigarette Use: not used alcohol intake: former substance use type: does not use what type of physical activity do you participate in: walking frequency: 1-2 times per week ROS ROS ED Constitutional Constitutional ED: Denies chills or fever(s) Eyes Eyes: Denies blurry vision or diplopia ENT ENT ED: Denies rhinorrhea or sore throat Cardiovascular Cardiovascular: Denies chest pain or palpitations Respiratory/Chest Respiratory/Chest: Denies cough or dyspnea Gastrointestinal Gastrointestinal: Denies abdominal pain, nausea or vomiting Genitourinary Genitourinary ED: Denies dysuria or hematuria Musculoskeletal Musculoskeletal: Denies arthralgias, back pain, myalgias or neck pain Integumentary Denies rash Neurologic Neurologic: Denies headache(s), paresthesias or weakness EXAM Physical Exam Const Vital Signs: 05/22/21 19:02 05/22/21 19:50 05/22/21 20:03 Temperature 98.6 F Temperature Source Temporal Pulse Rate 62 62 Respiratory Rate 16 12 Respiratory Effort Normal Non-Labored Respiratory Pattern Normal Blood Pressure 208/75 H 192/76 H Blood Pressure Mean 119 114 05/22/21 20:35 Temperature Temperature Source Pulse Rate 59 L Respiratory Rate Respiratory Effort Respiratory Pattern Blood Pressure 186/80 H Blood Pressure Mean 115 Positive well nourished General Appearance ED: NAD; Negative for pallor HEENT Reports moist mucous membranes Negative for trauma Eyes PERRL and EOMs intact bilaterally Resp normal respiratory effort Cardio regular rhythm Neuro oriented x3 Sensorium / Orientation: alert Psych mental status grossly normal Skin General Skin Exam: Negative for jaundice or pallor MDM MDM MDM Narrative Medical decision making narrative: Patient presenting with asymptomatic hypertension. I reviewed his medication list with Dr. Golden. He initially recommended that I give him hydralazine however I told him the last time I saw him with an elevated blood pressure like this to hydralazine did not help him. I stated that the clonidine did help and he recommended that I give him this. He still has some at home but I will provide a prescription for as needed clonidine. I went over the parameters with he and his . They feel comfortable with this. We will monitor him until his blood pressure improves and discharged home to follow-up with Dr. Lucero. Patient's blood pressure is slowly improving is now 175/73. Patient still asymptomatic. Patient requested a prescription for clonidine as he is not sure how much he has left. He was given 0.1 mg. He is to check his blood pressures in the morning, afternoon, evening. If he notes that his blood pressures are up higher again around 200 he supposed to take the clonidine. If he has any symptoms which were discussed at length he is to come to the emergency room. Patient will follow up with Dr. Lucero outpatient. Impression: 1. Hypertension Discharge Plan Triage Chief Complaint: Hypertension ED Provider: Jean Pierre Pizano Dx/Rx/DC Orders Instructions: ED Hypertension, Established Prescriptions: New clonidine HCl 0.1 mg tablet 0.1 mg PO BID PRN (Reason: Elevated Blood pressure) Qty: 14 RF: 0 No Action multivitamin,su-gyrc-dudxgqos tablet tablet 1 tab PO QDAY RF: 0 pramipexole 0.125 mg tablet 0.125 mg PO QHS Qty: 90 RF: 3 sertraline 50 mg tablet 75 mg PO DAILY Qty: 135 RF: 3 Hospital bed See Rx Instructions .ROUTE .COMPLEX Qty: 1 RF: 0 amlodipine 5 mg tablet 10 mg PO DAILY RF: 0 valsartan 320 mg tablet 320 mg PO QHS RF: 0 aspirin 81 mg tablet,chewable 81 mg PO BREAKFAST RF: 0 latanoprost 0.005 % Drops 1 drp EACH EYE HS Qty: 0 RF: 0 Arthritis Pain Compound 0 click topical BID Qty: 0 RF: 0 metformin 500 mg tablet See Rx Instructions .ROUTE .COMPLEX Qty: 45 RF: 0 Basaglar KwikPen U-100 Insulin 100 unit/mL (3 mL) insulin pen 20 unit SUBCUT DAILY Qty: 0 RF: 0 (DME) Handicap Placard See Rx Instructions .Route .MEDSUPPLY Qty: 1 RF: 0 ezetimibe [Zetia] 10 mg tablet 10 mg PO DAILY Qty: 90 RF: 3 gabapentin 300 mg capsule 300 mg PO 2100 Qty: 20 RF: 0 gabapentin 100 mg capsule 100 mg PO BID Qty: 40 RF: 0 hydrochlorothiazide 25 mg tablet 25 mg PO DAILY Qty: 30 RF: 0 metoprolol tartrate 50 mg tablet 75 mg PO BID Qty: 90 RF: 3 Primary Care Provider: Jennifer Watt Referrals: Jennifer Watt MD [Primary Care Provider] - Disposition Disposition: Home, Self Care
[2021-05-22 21:50] VITALS: BP 175/89; PULSE 68; RESP 15; O2SAT 97
== END 2021-05-22 21:51 | disposition home or self-care (01) ==
PROVIDERS: Emergency Provider Student in an Organized Health Care Education/Training Program; PCP Internal Medicine; Visit Provider Student in an Organized Health Care Education/Training Program
DX: I10 Essential (primary) hypertension (principal); F32.A Depression, unspecified; Z79.82 Long term (current) use of aspirin; Z86.73 Personal history of transient ischemic attack (TIA), and cerebral infarction without residual deficits; Z79.899 Other long term (current) drug therapy
CPT/HCPCS: 99283

== ENCOUNTER 2021-05-28 12:42 | Outpatient (CLI) | payer MEDICARE, SELFPAY ==
[2021-05-28 13:00] VITALS: PULSE 48; PULSE 52; PULSE 53; PULSE 54; PULSE 56; PULSE 57; PULSE 58; O2SAT 96; O2SAT 97; O2SAT 98; O2SAT 99
--- NOTE | 2021-05-28 13:17 | CPS ---
At the 4 min manuel pt took a rest due to his legs being tired/painful
--- NOTE | 2021-05-28 13:54 | PCM.PSN.6M ---
PSN 6 Minute Walk Test 6 Minute Walk Test 6 Minute Walk Test: 6 Minute Walk Test PSN:6-Minute Walk Test Start: 05/28/21 13:12 Freq: Status: Active Protocol: RESP.6MINW Document 05/28/21 13:00 [facility] (Rec: 05/28/21 13:18 [facility] [id number]) 6 Minute Walk Test Date Performed 05/28/21 Time Performed 13:00 Height 6 ft Weight: 79.379 kg Weight in Pounds 175.[address]: Laurel Assistive device used: None Pre-test Oxygen Delivery Method Room Air Pulse Ox (%) 98 Pulse Rate (60-100 beats/min) 48 L Dyspnea Fatem[place] Scale (0-10) 0 Exertion [place] Scale (6-20) 6 1st minute Oxygen Delivery Method Room Air Pulse Ox (%) 98 Pulse Rate (60-100 beats/min) 53 L 2nd minute Oxygen Delivery Method Room Air Pulse Ox (%) 99 Pulse Rate (60-100 beats/min) 57 L 3rd minute Oxygen Delivery Method Room Air Pulse Ox (%) 96 Pulse Rate (60-100 beats/min) 56 L 4th minute Oxygen Delivery Method Room Air Pulse Ox (%) 96 Pulse Rate (60-100 beats/min) 57 L Number of Rests Taken 1 5th minute Oxygen Delivery Method Room Air Pulse Ox (%) 98 Pulse Rate (60-100 beats/min) 58 L 6th minute Oxygen Delivery Method Room Air Pulse Ox (%) 98 Pulse Rate (60-100 beats/min) 54 L Dyspnea [place]em[place] Scale (0-10) 0 Exertion [place] Scale (6-20) 12 Post-test Oxygen Delivery Method Room Air Pulse Ox (%) 97 Pulse Rate (60-100 beats/min) 52 L Full Laps Walked 5 Partial Lap, Number of Tiles Walked 0 Total Distance Walked (ft) 295 05/28/21 13:17 Cardiopulmonary Services by Sheridan Kennedy At the 4 min manuel pt took a rest due to his legs being tired/painful Initialized on 05/28/21 13:17 - END OF NOTE Interpretation Interpretation: The patient was noted to be 98% on room air at rest with a heart rate of 48. The patient experienced no significant desaturation or tachycardia during testing, but did have to take 1 break secondary to leg pain. In total, the patient traveled only 295 feet over the course of 6 minutes on room air with the assistance of 1 break. These findings are consistent with a musculoskeletal limitation exercise tolerance. Recommendations Recommendations: No supplemental oxygen is indicated at this time.
== END 2021-05-28 23:59 | disposition home or self-care (01) ==
LOC: PSN 12:42
PROVIDERS: PCP Internal Medicine; Referring Provider Nurse Practitioner Acute Care; Visit Provider Nurse Practitioner Acute Care
DX: R06.00 Dyspnea, unspecified (principal); M79.606 Pain in leg, unspecified
CPT/HCPCS: 94618

== ENCOUNTER 2021-06-10 12:43 | Outpatient (CLI) | payer MEDICARE, SELFPAY | END 2021-06-10 23:59 | disposition home or self-care (01) | LOC: CVS 12:44 | PROVIDERS: PCP Internal Medicine; Visit Provider Internal Medicine Cardiovascular Disease | DX: I70.1 Atherosclerosis of renal artery (principal); I73.9 Peripheral vascular disease, unspecified; I10 Essential (primary) hypertension; Z86.73 Personal history of transient ischemic attack (TIA), and cerebral infarction without residual deficits | CPT/HCPCS: 93788 ==

== ENCOUNTER 2021-06-24 08:45 | Outpatient (CLI) | payer MEDICARE, SELFPAY ==
--- NOTE | 2021-06-24 08:47 | RDU_ITS ---
Reason For Study: HTN Right Renal Artery Left Renal Artery Right renal artery ostium 276.9/41.6 Left renal artery ostium 188.2/11.9 RSV/EDV. PSV/EDV. Right renal artery proximal Left renal artery proximal PSV/EDV 234.8/27.8 PSV/EDV. 198.5/14.5 . Right renal artery mid 212.1/34.3 Left renal artery mid 118.2/14.5 PSV/EDV. PSV/EDV . Right renal artery distal 126.2/21.7 Left Renal Parenchyma PSV/EDV. Left upper pole medulla 24.3/4.7 Right Renal Parenchyma PSV/EDV . Upper Pole Medula 26.1/7.9 PSV/EDV. Left upper pole medulla EDR 0.19 . Right upper pole medulla EDR 0.30 . Left upper pole medulla R.I. 0.81 . Right upper pole medulla R.I. 0.70 . UP Cortex 15.7/4.1 PSV/EDV. Upper Jordy Cortx 15.1/4.7 PSV/EDV. Left upper pole cortex EDR 0.26 . Right upper pole cortex EDR 0.31 . Left upper pole cortex R.I. 0.74 . Right upper pole cortex R.I. 0.69 . Left lower Pole medulla 21.2/5.3 Right lower Pole medulla 22.5/6.5 PSV/EDV . PSV/EDV . Left lower pole medulla EDR 0.25 . Right lower pole medulla EDR 0.29 . Left lower pole medulla R.I. 0.75 . Right lower pole medulla R.I. 0.71 . Lower Pole Cortx 15.7/4.1 PSV/EDV. Lower Pole Cortex 16.3/5.3 PSV/EDV. Left lower pole cortex EDR 0.26 . Right lower pole cortex EDR 0.32 . Left lower pole cortex R.I. 0.74 . Right lower pole cortex R.I. 0.68 . Left Renal Hilar Right Renal Hilar LT Hilar avg 60.5/8.6 PSV/EDV . Right Hilar avg 64.2/10.9 PSV/EDV. Left hilar acceleration time 60 Right hilar acceleration time 60 m/sec. m/sec. Left Renal Dimensions Right Renal Dimensions Left kidney size 10.37 cm . Right kidney size 11.76 cm . Left cortical dimension 1.68 cm . Right cortical dimension 1.85 cm . Nonvascularized structure noted in Nonvascularized structure noted on the upper pole of the kidney the lower pole of the kidney that measures 2.69 x 2.20 cm. measure 4.33 x 4.48 cm. Aorta Proximal abdominal aorta 1.94 x 1.93 cm . Proximal abdominal aorta peak systolic velocity is 75.7 cm/sec . Aorta mid, 3.02 x 2.94 x 2.94 cm. Distal abdominal aorta 1.59 x 1.79 cm . Distal abdominal aorta peak systolic velocity is 37.4 cm/sec . VL/Renal Artery Duplex Ultrasound Interpretation Summary Right renal artery with greater than 60% stenosis with a PSV of 276 at the osti um. Left renal artery with less than 60% degree stenosis. 3 cm aortic aneurysm noted. Ordering Physician: Gumaro Tapia Referring Physician: Jennifer Watt M.D. Performed By: Tish Riddle RVT
== END 2021-06-24 23:59 | disposition home or self-care (01) ==
LOC: CVS 08:45
PROVIDERS: PCP Internal Medicine; Visit Provider Surgery Vascular Surgery
DX: I71.4 Abdominal aortic aneurysm, without rupture (principal); I10 Essential (primary) hypertension
CPT/HCPCS: 93975

== ENCOUNTER 2021-08-03 15:30 | Outpatient (RCR) | payer MEDICARE, SELFPAY ==
--- NOTE | 2021-03-03 16:05 | HP.OTEVAL ---
Patient's Visit Information SHAISTA CLOUD is a 80 year old M, referred to Occupational Therapy by Dr. Jennifer Watt MD, with a diagnosis of CVA. Date of Evaluation: 03/03/21 Occupational Therapist: Lucina Bales, BELEN/Naya, CHT - Subjective This 80 year old male was seen for OT eval with dx of CVA- this happened 8 weeks ago - spent 4 weeks in the the hospital and received home health therapy services for another 4 weeks. Pt is right handed left UE has been affected from his stroke. pt arrives with in WC has ana walker and gait belt on. Pts states they are mtg together but she is assisting him with all his ADLs at this time. PLOF ambulation IND and attended [facility] 2x week. pt would like to get use of his left UE back- states leg has full movement but weakness. - ADLs Comments: pt lives with in one story home with 3 entry steps with one railing-. pt has walk-in shower but has been doing sponge baths. assisting pt with bathing/dressing - ROM Shoulder: right UE WNL left PROM WNL Elbow: right WNL left PROM WNL Forearm: right WNL left PROM WNL Wrist: right WNL left PROM WNL ROM Comments: flaccid left UE - Sensation Stereognosis: Normal - Right, Normal - Left Kinesthesia: Normal - Right, Abnormal - Left Proprioception: Normal - Right, Abnormal - Left Sensation Comments: tingling of left UE - Movement Muscle Tone: left UE min tone with elbow flex/ext and flexor of wrist and digits - Quick DASH-Disab of Arm,Shoulder& Hand Quick DASH Score: 86.3625 - Goals Goal:: pt will demo left shoulder flex to 140* or greater to increase pts ind. with ADls by d/c. pt will demo increase in left elbow ROM to 0/135 to increase pts ind. with ADLs and IADLs by d/c. pt will demo left forearm supination /pronation 75/75 to increase use of left UE with ADLs by d.c. pt will demo a increase in left wrist ROM 65/65 to to increase use of left UE with ADLs by d.c. pt will demo left grasp/release to hold large and med. objects by dJohannac Goal:: pt and family will report increase ind. with self care by d.c - Rehabilitation General Assessment: following a CVA pt demo with left UE min. movement increasing need of assistance from with self-care. pt would benefit from skilled OT services 2x week for 6 weeks increase pts return of left UE as assistive arm for ADls and IADLs. pt and pts agree to POC. Rehabilitation Potential: Good - Anticipated Interventions A/AAROM/PROM, Strengthening, Triggerpoint Release, Sensory Retraining, Fine Motor Coord/Jeanmarie, Neuro Reeducation, Education re assistive Equipment, Education re Diagnosis, Caregiver Training - Visit Plan Frequency: 2x /Week Duration: 6 Weeks TEXT: Thank you for the opportunity to evaluate your patient. For Medicare and Medicare HMO plans, please review the plan of care and approve it. It will need to be FAXED BACK to us at [phone] for Medicare purposes. Please let me know if there are questions or concerns regarding this plan of care. Physician Signature: Date:
--- NOTE | 2021-03-04 10:45 | HP.PTEVAL_ITS ---
Patient's Visit Information SHAISTA CLOUD is a 80 year old M referred to Physical Therapy by Dr. Jennifer Watt MD with a diagnosis of Cerebral infarct. Date of Evaluation: 03/04/21 Physical Therapist: Jesús Rodriguez DPT, OCS, CSCS - Visit Plan Frequency: 2x /Week Duration: 4-6 Weeks Plan: 2x/week for 4 weeks to start for. 1. gait training with decreasing AD and balance challenges. 2. stair training with L LE. 3. L LE strength. progress HEP and home mobility as safety allows. pt will have OT for L UE. - Subjective I had a stroke 12/31/20. L side is effected. L leg is working OK but not as strong. L arm is mostly effected and is not functional and is in OT for that. L leg motor control effected and weak. uses hemiwalker to get around at home, no AD needed prior. has WC at home and is pushed back to therapy today by . Hardly uses it at home except to eat at table as it fits under the table. always with him when up and moving. Spends time at home sitting in chair mostly or in bed. Spends time reading, computers Tv etc. used to spend time house wrok and yard work. 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 Can go back if he becomes able. Basic aDLs: needs help dressing with all clothes due to L arm weakness and poor control. Spnge bath in chair with help. Going to the bathroom needs help from . Is R handed. No pain. No dizzyness. Sensation is Ok. I hospital until 01/28 in rehab, had home therapy. Has 2 steps to enter house with railing, one stair into family room. Getting supervision. No falls lately, one LOB. - Objective Pt pushed back to PT by wofe in WC. using back of chair to support self but can sit unsupported and move R UE [place]. l UE dysfunctional with movement. Trasnfer out of chair using r UE and 2 attempts but mod I. Stand with hemiwalker mod I. stand without Ad 60 seconds including ec and mild perturbations without dificulties. Walk 125 feet with hemiwalker R UE short steps and SBA today to Mod i. Walk 100 feet without AD CGA to min A, less steady but able to bear weight. Poor confidence in L LE. Steps using R LE and one rail mod I. L leg is weak and poor proprioception and confidence in L side. Can push up with L without and lower down with L with one rail SBA. Hits l foot on next step acending 505 of time, better with cues to lift leg high. L LE strength ankle and knee 4- and R is 4. hip strength 4- l hip flexiona dn 3= abd and ext vs 4 on R. AROM LE WFL, tightness in HS and quads. reflexes 1/3 bi asnd tri and patella and achilles B. Sensation LE WNL to gross light touch B. coordination to reciprocal toe tap and heel tap OK. Heel to clifford test worse on L LE than R. - Balance/Special Test Scores Functional Gait Assessment Score: 19 % Disability: 36.6700 Lower Extremity Functional Score: 14 - Goals Goal 1:: walk without AD short distances dsafe and I 100 feet. Goal Time Frame: 4-6 Weeks Goal 2:: Up and down steps with one rail reciprocal I without hitting L foot on step Goal Time Frame: 4-6 Weeks Goal 3:: FGA Goal Time Frame: 4-6 Weeks Goal 4:: Pt feel back to 90% mobility level Goal Time Frame: 4-6 Weeks - Rehabilitation Potential Physical Therapy Diagnosis: weakness on L LE form CVA effecting mobility Rehabilitation Potential: Fair - Anticipated Interventions Patient/Client Instruction: Educate patient on: Condition, Plan of Care For the Purpose of:: To increase ROM, To improve muscle performance and motor function, To increase tolerance to activity/condition/position, To improve ability of physical actions for home/community/work/leisure, To improve gait and locomotor functions Therapeutic Exercise to Include: Strength training, Balance training, Postural training, Flexibilty training, Gait and locomotor training For the Purpose of:: To improve muscle performance and motor function, To increase tolerance to activity/condition/position, To improve ability of physical actions for home/community/work/leisure, To improve gait and locomotor functions, To improve balance Functional Training to Include: Gait training For the Purpose of:: To improve gait and locomotor functions Thank you for the opportunity to evaluate your patient. For Medicare and Medicare HMO plans, please review the plan of care and approve it. It will need to be FAXED BACK to us at [phone] for Medicare purposes. For Medicare only, by signing this I certify the plan of care. Please let me know if there are questions or concerns regarding this plan of care. Physician Signature: Date:
--- NOTE | 2021-04-30 15:41 | OTREVAL_ITS ---
Dr. Jennifer Watt MD, It has been my pleasure to treat SHAISTA CLOUD over the last 1 visits for CVA. Please see the progress note below for an update on the occupational therapy rojelio n of care! Subjective: pt arrives with - states they are continuing watching blood pressure- family is compliant with attendance and performing HEP - pt and continue to have concerns with left hand swelling and limited mobility- Objective/Function: pt demo with initiation of biceps flex- and triceps this is a increase from flaccid muscle. hand continues to be swollen -. and noted digit flexion tone increase to mod tone-. pt is making gains toward his goals and would benefit from skilled OT services 2x week for 6 weeks- Plan Frequency: 2x /Week Duration: 6 Weeks Visits in this POC: 12 Plan: cont with wt.B. supporting left elbow and shoulder-. use of tens unit for circulation to assist with edema - Goals - Goals Patient Goals: Regain Mobility, Regain Strength, Improve Fine Motor Skills, Use Hand/Wrist/Arm Normally Again, Be More Independent in ADLS Goal:: pt will demo left shoulder flex to 140* or greater to increase pts ind. with ADls by d/c. pt will demo increase in left elbow ROM to 0/135 to increase pts ind. with ADLs and IADLs by d/c. pt will demo left forearm supination /pronation 75/75 to increase use of left UE with ADLs by d.c. pt will demo a increase in left wrist ROM 65/65 to to increase use of left UE with ADLs by d.c. pt will demo left grasp/release to hold large and med. objects by d.c Goal:: pt and family will report increase ind. with self care by d.c Anticipated Interventions Anticipated Interventions: A/AAROM/PROM, Strengthening, Triggerpoint Release, Sensory Retraining, Fine Motor Coord/Jeanmarie, Neuro Reeducation, Education re assistive Equipment, Education re Diagnosis, Caregiver Training Please do not hesitate to contact me at [phone] by phone or if you have questions or concerns regarding this new plan of care! Sincerely, Lucina Bales, OTR/L, CHT
--- NOTE | 2021-05-07 14:13 | HP.PTREVAL ---
Dr. Jennifer Watt MD, It has been my pleasure to treat SHAISTA CLOUD over the last 16 visits for Cerebral infarct. Please see the progress note below for an update on the physical therapy plan of care! Subjective: He is feeling much better from last week. Rearranged meds that were causing dizzyness, fatigue and weakness, Now doing better and vitals are stabilizing. Getting around easier also. Using hemiwalker in R UE for stability at home when weak but feels Ok without it also. uses it especially in the morning. One step at home is going Ok with post placed for rail. Legvs getting stronger but fatiuge has not allowed him to get where he needs to be. helps him with legs into and out of bed and has grab rail. Objective/Function: Trasnfer into and out of bed VC needed at legs but patient used to help. Sit to stand transfer I with UE. Steps reciprocal with one rail, kicking next step with L a couple times in a flight but self correcting. Walks without AD I, slow turns, hesitant to shift weight. using ana walker is slightly better. L UE is dysfunctional and not much movement, needs VC to roll to R side leading with shoulder but can do it. Reset goals and fair prognosis. Plan Plan: 2x/week for 4 weeks. Patients difficulty with side effects from medication have held him back from progress in last couple weeks. Please work on... 1. gym program for LE to I. 2. Please do bed transfer with VC only each session to work to I at home. 3. Work on gait turning and steps each session. Balance/Gait/Functional tests - Balance/Special Test Scores Functional Gait Assessment Score: 19 % Disability: 36.6700 Lower Extremity Functional Score: 22 Goals Goal 1:: Up and down steps without catching L toe 2 flights with one rail reciprocally Goal Time Frame: 2-4 Weeks Goal Progress: NEW GOAL Goal 2:: Up and down steps with one rail reciprocal I without hitting L foot on step Goal Time Frame: 4-6 Weeks Goal Progress: Goal Met Goal 3:: FGA Goal Time Frame: 4-6 Weeks Goal Progress: appropriate again. Goal 4:: Pt feel back to 90% mobility level Goal Time Frame: 4-6 Weeks Goal Progress: 50%, appropriate Goal 5:: I with appropriate gym program for continued strength. Goal Time Frame: 2-4 Weeks Goal Progress: approp, no progress yet Goal 6:: bed trasnfer in therapy 3x I Goal Time Frame: 2-4 Weeks Goal Progress: NEW GOAL Anticipated Interventions Patient/Client Instruction: Educate patient on: Condition, Plan of Care For the Purpose of:: To increase ROM, To improve muscle performance and motor function, To increase tolerance to activity/condition/position, To improve ability of physical actions for home/community/work/leisure, To improve gait and locomotor functions Therapeutic Exercise to Include: Strength training, Balance training, Postural training, Flexibilty training, Gait and locomotor training For the Purpose of:: To improve muscle performance and motor function, To increase tolerance to activity/condition/position, To improve ability of physical actions for home/community/work/leisure, To improve gait and locomotor functions, To improve balance Functional Training to Include: Gait training For the Purpose of:: To improve gait and locomotor functions Please do not hesitate to contact me at [phone] by phone or if you have questions or concerns regarding this new plan of care! Sincerely, Jesús Rodriguez, DPT, OCS, CSCS
--- NOTE | 2021-06-11 15:44 | HP.OTREVAL ---
Dr. Jennifer Watt MD, It has been my pleasure to treat SHAISTA CLOUD over the last 12 visits for CVA. Please see the progress note below for an update on the occupational therapy plan of care! Subjective: Pt arrived a few minutes late with , bringing shoulder Givmohr brace for use to show them how to theo. Pt states edema was down yesterday and up today. Pt states he has made small gains in his ROM- Objective/Function: Pt demo limited AROM with shoulder ext, elbow ext, internal rotation, only muscle contraction felt for wrist and thumb ROM. Pt would like to continue OT for further gains with ROM and adaptations for self care to decrease assistance from his with dressing tasks. Plan Frequency: 2x /Week Duration: 6 Weeks Visits in this POC: 12 Plan: Pt would like to cont to make further gains 2x week for 6 weeks for 60 min. Use of FES unit to decrease edema and stimulate muscle contractions. Wt B thru LUE with elbow support - while strengthening unaffected side to increase pts self care Goals - Goals Patient Goals: Regain Mobility, Regain Strength, Improve Fine Motor Skills, Use Hand/Wrist/Arm Normally Again, Be More Independent in ADLS Goal:: PT will demo a increase in right UE strength indicated by SUP with function transfers. 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 Goal:: pt will demo left shoulder flex to 140* or greater to increase pts ind. with ADls by d/c. pt will demo increase in left elbow ROM to 0/135 to increase pts ind. with ADLs and IADLs by d/c. pt will demo left forearm supination /pronation 75/75 to increase use of left UE with ADLs by d.c. pt will demo a increase in left wrist ROM 65/65 to to increase use of left UE with ADLs by d.c. pt will demo left grasp/release to hold large and med. objects by d.c Goal:: pt and family will report increase ind. with self care by d.c Goal:: pt will report EMMANUEL LB dressing with use of adaptions to decrease need of assist from by d/c Anticipated Interventions Anticipated Interventions: A/AAROM/PROM, Strengthening, Triggerpoint Release, Sensory Retraining, Fine Motor Coord/Jeanmarie, Neuro Reeducation, Education re assistive Equipment, Education re Diagnosis, Caregiver Training Please do not hesitate to contact me at [phone] by phone or if you have questions or concerns regarding this new plan of care! Sincerely, Lucina Bales, OTR/L, CHT
--- NOTE | 2021-06-18 14:00 | HP.PTREVAL ---
Dr. Jennifer Watt MD, It has been my pleasure to treat SHAISTA CLOUD over the last 27 visits for Cerebral infarct. Please see the progress note below for an update on the physical therapy plan of care! Subjective: Constantly changing blood pressure meds t9o find the right cocktail which makes him up and down. Feels good but numbers are too high. Feels like mobility is improving with therapy, more flexible and safer walking around. Stepping over is getting easier but still hard to lift left leg. Doing grab bar steps onto porch himself at home right now. Has one step at front door and needs walker to do it, using his walker and assist. Sleeping OK. No pain. No AD needed anymore, sometimes walker in am, no falls. Mobility at home is improving, needs to take longer steps and more smoothly. Feels better with walking control. Gym exercises are helpful and feels like he can continue most of those himself, leg press is challenging on his own. Getting in and out of bed himself, some days better than others. Objective/Function: FGA is +1. i in and out of lying position. Steps are reciprocal with one rail, kicks up step with L 2x today correcting I. More support from UE needed to descend with L. Turns slowly and without picking up L LE 180 degrees. Has lift of exercises for the gym but appropriate to work on gait with fair prognosis. Plan Plan: 2x/week for 4 weeks, pt to do gym ex himself and with at least 2x/week. Please focus in therapy on gait pattern with step length,challenges on uneven surfaces and turns and steps. progress pregait to gait ex via HEP(gave may with L today. Balance/Gait/Functional tests - Balance/Special Test Scores Functional Gait Assessment Score: 20 % Disability: 33.3400 Lower Extremity Functional Score: 22 TUG Test Time Seconds: 18 Goals Goal 1:: Up and down steps without catching L toe 2 flights with one rail reciprocally Goal Time Frame: 2-4 Weeks Goal Progress: Progressing, approp Goal 2:: 15 or better on TUG Goal Time Frame: 4-6 Weeks Goal Progress: Goal Met Goal 3:: FGA Goal Time Frame: 4-6 Weeks Goal Progress: still approp, improving Goal 4:: Pt feel back to 90% mobility level Goal Time Frame: 4-6 Weeks Goal Progress: 60, approp Goal 5:: I with appropriate gym program for continued strength. Goal Time Frame: 2-4 Weeks Goal Progress: Goal Met Goal 6:: bed bettysnfer in therapy 3x I Goal Time Frame: 2-4 Weeks Goal Progress: Goal Met Anticipated Interventions Patient/Client Instruction: Educate patient on: Condition, Plan of Care For the Purpose of:: To increase ROM, To improve muscle performance and motor function, To increase tolerance to activity/condition/position, To improve ability of physical actions for home/community/work/leisure, To improve gait and locomotor functions Therapeutic Exercise to Include: Strength training, Balance training, Postural training, Flexibilty training, Gait and locomotor training For the Purpose of:: To improve muscle performance and motor function, To increase tolerance to activity/condition/position, To improve ability of physical actions for home/community/work/leisure, To improve gait and locomotor functions, To improve balance Functional Training to Include: Gait training For the Purpose of:: To improve gait and locomotor functions Please do not hesitate to contact me at [phone] by phone or if you have questions or concerns regarding this new plan of care! Sincerely, Jesús Rodriguez, DPT, OCS, CSCS
--- NOTE | 2021-08-03 16:10 | HP.PTREVAL ---
Dr. Jennifer Watt MD, It has been my pleasure to treat SHAISTA CLOUD over the last 34 visits for Cerebral infarct. Please see the progress note below for an update on the physical therapy plan of care! Subjective: No different overall. Might feel al little bit stronger sometimes but not consistently. Has sling for arm and wears it at home. Saw orthopedic doctor who stated it was not dislocating but does get misplaced at times. Not seeing OT anymore. Arm is typically in sling when he is up and about. Has had shoulder pain in L shoulder which was the reason for the ortho visit. Will have f/u visit with ortho. will have kidney stent on Tuesday. Getting around OK, walking as much as possible. Doing exercises in gym with and will continue 2x/week. Using hemiwalker sometimes but mostly walks without AD. No falls. Objective/Function: Walks with L UE flaccid and some mild lack of flexion in L knee but I without AD today. Has hemiwalker at home and uses it when he feels he needs it. transfers with R UE I, steps with R UE up and down reciprocally I. FGA score same as previously. Pt wishes to cotninue therapy in gym 2-3x/weeek on his own and f/u in a month to monitor progress. New maintenance goal and fair prognosis with compliance. Plan Plan: f/u one month to check gait, steps, FGA, TUG, 30 sec sit to stand. Balance/Gait/Functional tests - Balance/Special Test Scores Functional Gait Assessment Score: 20 % Disability: 33.3400 Lower Extremity Functional Score: 22 TUG Test Time Seconds: 17 30 Second Chair Rise Test Seconds: 5 Goals Goal 1:: Up and down steps without catching L toe 2 flights with one rail reciprocally Goal Time Frame: 2-4 Weeks Goal Progress: Goal Met Goal 2:: 15 or better on TUG Goal Time Frame: 4-6 Weeks Goal Progress: Goal Met Goal 3:: FGA 22/30 Goal Time Frame: 4-6 Weeks Goal Progress: Not Progressing Goal 4:: Pt feel back to 90% mobility level Goal Time Frame: 4-6 Weeks Goal Progress: Not Progressing Goal 5:: Maintain, 17 TUG, progress to 6 on 30 sec sit to stand and 20/30 FGA to show maintenance with his own gym program. Goal Time Frame: 4-6 Weeks Goal Progress: NEW GOAL Goal 6:: bed jossue in therapy 3x I Goal Time Frame: 2-4 Weeks Goal Progress: Goal Met Anticipated Interventions Patient/Client Instruction: Educate patient on: Condition, Plan of Care For the Purpose of:: To increase ROM, To improve muscle performance and motor function, To increase tolerance to activity/condition/position, To improve ability of physical actions for home/community/work/leisure, To improve gait and locomotor functions Therapeutic Exercise to Include: Strength training, Balance training, Postural training, Flexibilty training, Gait and locomotor training For the Purpose of:: To improve muscle performance and motor function, To increase tolerance to activity/condition/position, To improve ability of physical actions for home/community/work/leisure, To improve gait and locomotor functions, To improve balance Functional Training to Include: Gait training For the Purpose of:: To improve gait and locomotor functions Please do not hesitate to contact me at [phone] by phone or if you have questions or concerns regarding this new plan of care! Sincerely, Jesús Rodriguez, DPT, OCS, CSCS
--- NOTE | 2021-09-17 16:24 | HP.PT.NRP ---
SHAISTA CLOUD was seen in my office for initial evaluation on 03/04/21. The following Plan of Care was established for this patient: Initial Frequency: 2x /Week Initial Duration: 4-6 Weeks Patient/Client Instruction: Educate patient on: Condition, Plan of Care For the Purpose of:: To increase ROM, To improve muscle performance and motor function, To increase tolerance to activity/condition/position, To improve ability of physical actions for home/community/work/leisure, To improve gait and locomotor functions Therapeutic Exercise to Include: Strength training, Balance training, Postural training, Flexibilty training, Gait and locomotor training For the Purpose of:: To improve muscle performance and motor function, To increase tolerance to activity/condition/position, To improve ability of physical actions for home/community/work/leisure, To improve gait and locomotor functions, To improve balance Functional Training to Include: Gait training For the Purpose of:: To improve gait and locomotor functions This patient was last seen in our office 08/03/21. Pertinent comments regarding their Physical therapy will appear below: Pt seen 34 visits POC and was 50% better. Much of that improvement was early on as his progress had stagnated. He was to f/u a month later to ensure lack of digression but did not schedule or attend. at this point, it has been almost 7 weeks and I will discontinue from my care due to nonattendance. At this point I will be discontinuing this patient from physical therapy. I would be happy to see this patient again in the future if found appropriate by the physician. Thank you! Jesús Rodriguez, DPT, OCS, CSCS Balance/Gait/Functional tests - Balance/Special Test Scores Functional Gait Assessment Score: 20 % Disability: 33.3400 Lower Extremity Functional Score: 22 TUG Test Time Seconds: 17 30 Second Chair Rise Test Seconds: 5
== END 2021-08-03 19:00 | disposition home or self-care (01) ==
LOC: PT 15:30
PROVIDERS: PCP Internal Medicine; Referring Provider Internal Medicine; Visit Provider Internal Medicine
DX: Z86.73 Personal history of transient ischemic attack (TIA), and cerebral infarction without residual deficits (principal)
CPT/HCPCS: 97110; 97112; 97116; 97140; 97162; 97164; 97166; 97168; 97530

== ENCOUNTER 2021-08-05 06:43 | Day surgery (SDC) | payer MEDICARE, SELFPAY ==
[2021-08-04 09:28] VITALS: BMI 24.4
[2021-08-05 06:58] LABS: Hemoglobin 11.9 g/dL (13.0-16.5); Mean Corp Hgb Conc 33.1 g/dL (32-36); Mean Corpuscular Hgb 29.6 pg (27.0-32.0); Mean Corpuscular Volume 89.6 fL (80-94); Mean Platelet Vol. 9.8 fl (6.2-12.0); Platelet Count 235 K/mm3 (150-450); RBC Distribution Width CV 15.8 % (11.6-14.6); RBC Distribution Width SD 52.1 fl (35.1-43.9); Red Blood Count 4.02 M/mm3 (4.6-6.2); White Blood Count 8.4 K/mm3 (4.4-11.0)
[2021-08-05 07:11] LABS: Albumin, Serum 3.1 g/dL (3.2-5.0); BUN 29 mg/dL (7-18); BUN/Creat Ratio 22.3 RATIO (10-20); Calcium,Total 9.2 mg/dL (8.5-10.1); Chloride 99 mmol/L (98-107); EST Glomerular Filtration Rate 56 mL/min (>60); Est Glom Filt Rate - Afr Amer 68 mL/min (>60); Estimated Creatinine Clearance 46.66 ml/min; Glucose 141 mg/dL (74-106); Phosphorus 3.5 mg/dL (2.5-4.9); Potassium 4.2 mmol/L (3.5-5.1); Sodium Level 135 mmol/L (136-145)
--- NOTE | 2021-08-05 08:35 | PCM.OP.BLANK ---
Problems Associated Problem List Diagnoses (1) Right renal artery stenosis: Operative Report Date of Procedure: 08/05/21 Surgeon: Dr. Gumaro Tapia Preop diagnosis right renal artery stenosis with uncontrolled hypertension Postop diagnosis same Procedure: 1. Aortogram with selective right renal angiogram. 2. Right renal stent with a 519 [place] express SD. Post ballooned with a 5.5 [place] balloon. 3. Closure with Mynx. Anesthesia: Moderate sedation Operation: Patient brought to the operating room. Underwent appropriate timeout consent. Underwent sedation. Was prepped and draped in a sterile fashion. We did ultrasound-guided access retrograde right common femoral artery. Put in a 6 Maltese sheath. Gave 5000 units of heparin. Brought a catheter up did not aortogram. We then brought in a RDC catheter and eventually to a GREEN catheter. We did another aortogram we could see the area of the right renal artery. He got a Glidewire and glide catheter out the renal artery confirm we are in the right renal artery. Did a selective renal angiogram showing the moderate to severe right renal artery stenosis. We brought in a 5 x 19 [place] express SD. We deployed in good position just into the aorta. We post ballooned with a 5.5 [place] balloon inflated this to about a 5.65 mm diameter. Completion was much improved with great flow through this area. We removed out the guide. We deployed a minx with good hemostasis. Patient was then brought to recovery stable condition. Sedation: This 81 a gentleman underwent moderate sedation given by Dr. Gumaro Tapia. He was monitored EKG blood pressure and pulse ox for over the 30 minutes of the procedure. See the EMR for the complete record.
== END 2021-08-05 13:10 | disposition home or self-care (01) ==
LOC: CLSP 06:44
PROVIDERS: PCP Internal Medicine; Referring Provider Surgery Vascular Surgery; Visit Provider Surgery Vascular Surgery
DX: I70.1 Atherosclerosis of renal artery (principal); E11.9 Type 2 diabetes mellitus without complications; Z79.4 Long term (current) use of insulin; Z79.82 Long term (current) use of aspirin; I10 Essential (primary) hypertension; M79.89 Other specified soft tissue disorders; Z79.899 Other long term (current) drug therapy; Z86.73 Personal history of transient ischemic attack (TIA), and cerebral infarction without residual deficits; Z79.84 Long term (current) use of oral hypoglycemic drugs
CPT/HCPCS: 36251; 36415; 37236; 76937; 80069; 85027; 99152; 99153; C1760; J7030; Q9967; C1725; C1769; C1876; C1887

== ENCOUNTER → 2021-09-09 | Outpatient (CLI) | payer MEDICARE, SELFPAY ==
[2021-09-11 22:06] LABS: Albumin 3.4 g/dL (2.9-4.4); Alpha-1-Globulins 0.2 g/dL (0.0-0.4); Alpha-2-Globulins 0.9 g/dL (0.4-1.0); Free Kappa Light Chains 52.2 mg/L (3.3-19.4); Free Lambda Light Chains 27.6 mg/L (5.7-26.3); Gamma Globulin 0.7 g/dL (0.4-1.8); Immunoglobulin A 206 mg/dL (61-437); Immunoglobulin G 848 mg/dL (603-1613); Immunoglobulin M 52 mg/dL (15-143); PROEL- TOTAL PROTEIN 6.2 g/dL (6.0-8.5)
== END | disposition home or self-care (01) ==
LOC: MTLAB 15:04
PROVIDERS: PCP Internal Medicine; Referring Provider Psychiatry & Neurology Neurology; Visit Provider Psychiatry & Neurology Neurology
DX: G62.9 Polyneuropathy, unspecified (principal)
CPT/HCPCS: 36415; 82784; 83883; 84165; 86334

== ENCOUNTER → 2021-09-10 | Outpatient (CLI) | payer MEDICARE, SELFPAY | END | disposition home or self-care (01) | LOC: MTLAB 11:42 | PROVIDERS: PCP Internal Medicine; Referring Provider Psychiatry & Neurology Neurology; Visit Provider Psychiatry & Neurology Neurology | DX: G62.9 Polyneuropathy, unspecified (principal) | CPT/HCPCS: 86335 ==

== ENCOUNTER → 2021-09-16 | Outpatient (CLI) | payer MEDICARE, SELFPAY ==
[2021-09-16 16:42] LABS: Absolute Lymphocyte Count 1.31 X10^3/uL (0.83-4.51); Absolute Neutrophil Count 4.6 X10^3/uL (2.0-7.7); Basophil# 0.05 X10^3/uL; Basophil% 0.7 % (0-1); Eosinophils% 2.9 % (0-5); Hematocrit 32.8 % (40-54); Hemoglobin 10.8 g/dL (13.0-16.5); Lymphocyte # 1.31 X10^3/ul (0.83-4.51); Lymphocyte % 18.8 % (19-41); Mean Corp Hgb Conc 32.9 g/dL (32-36); Mean Corpuscular Hgb 30.1 pg (27.0-32.0); Mean Corpuscular Volume 91.4 fL (80-94); Mean Platelet Vol. 11.4 fl (6.2-12.0); Monocyte% 11.5 % (0-10); NRBC Flagged by Analyzer 0 % (0-5); Platelet Count 218 K/mm3 (150-450); Red Blood Count 3.59 M/mm3 (4.6-6.2)
[2021-09-16 17:12] LABS: Anion Gap 6 (5-15); BUN 35 mg/dL (7-18); BUN/Creat Ratio 25.2 RATIO (10-20); Calcium,Total 9.2 mg/dL (8.5-10.1); Chloride 102 mmol/L (98-107); Creatinine, Serum 1.39 mg/dL (0.70-1.30); EST Glomerular Filtration Rate 52 mL/min (>60); Est Glom Filt Rate - Afr Amer 63 mL/min (>60); Glucose 116 mg/dL (74-106); Potassium 4.6 mmol/L (3.5-5.1); Sodium Level 136 mmol/L (136-145)
== END | disposition home or self-care (01) ==
PROVIDERS: PCP Internal Medicine; Visit Provider Nurse Practitioner Gerontology
DX: R42 Dizziness and giddiness (principal)
CPT/HCPCS: 36415; 80048; 83735; 85025

== ENCOUNTER → 2021-10-09 | Outpatient (CLI) | payer MEDICARE, SELFPAY ==
[2021-10-09 18:31] LABS: Anion Gap 6 (5-15); BUN 24 mg/dL (7-18); BUN/Creat Ratio 18.2 RATIO (10-20); Calcium,Total 8.9 mg/dL (8.5-10.1); Chloride 102 mmol/L (98-107); Creatinine, Serum 1.32 mg/dL (0.70-1.30); EST Glomerular Filtration Rate 55 mL/min (>60); Est Glom Filt Rate - Afr Amer 67 mL/min (>60); Glucose 108 mg/dL (74-106); Iron 60 ug/dL (65-175); Iron Binding Capacity,Total 292 ug/dL (250-450); PERCENT IRON SATURATION 20.5 % (15.0-55.0); Potassium 4.5 mmol/L (3.5-5.1); Sodium Level 137 mmol/L (136-145)
[2021-10-09 18:43] LABS: Hemoglobin A1c 6.5 % (3.8-5.6)
[2021-10-12 08:49] LABS: Vitamin B12 809 pg/mL (211-911)
== END | disposition home or self-care (01) ==
PROVIDERS: PCP Internal Medicine; Referring Provider Internal Medicine; Visit Provider Internal Medicine
DX: R79.89 Other specified abnormal findings of blood chemistry (principal); E11.9 Type 2 diabetes mellitus without complications; D64.9 Anemia, unspecified
CPT/HCPCS: 36415; 80048; 82607; 82746; 83036; 83540; 83550

== ENCOUNTER → 2021-10-15 | Outpatient (CLI) | payer MEDICARE, SELFPAY | END | disposition home or self-care (01) | LOC: PSN 12:51 | PROVIDERS: PCP Internal Medicine; Visit Provider Nurse Practitioner Gerontology | DX: I10 Essential (primary) hypertension (principal); R00.1 Bradycardia, unspecified | CPT/HCPCS: 93225; 93226; 93788 ==

== ENCOUNTER → 2021-10-20 | Outpatient (CLI) | payer MEDICARE, SELFPAY ==
--- NOTE | 2021-10-20 09:00 | CDU_ITS ---
Reason For Study: Dizziness Rt. Velocities/BP Lt. Velocities/BP Prox CCA 61.7/8.2 cm/sec. Prox CCA 102.5/16.8 cm/sec. Mid CCA 65.6/9.5 cm/sec. Mid CCA 65.1/12.4 cm/sec. Dist CCA 63/9.5 cm/sec. Dist CCA 59.7/8 cm/sec. Prox ICA 71.6/12.6 cm/sec. Prox ICA 93.7/20.6 cm/sec. Mid ICA 67.9/12.6 cm/sec. Mid ICA 95.5/15.2 cm/sec. Dist ICA 38.8/9.1 cm/sec. Dist ICA 70/13.3 cm/sec. Rt. ICA/CCA = 1.14. Lt. ICA/CCA = 1.47. Prox ECA 124.7/7.9 cm/sec. Prox ECA 141.2/4.2 cm/sec. Rt. Vert. 57.5 cm/sec. Lt. Vert. 56.4/12.4 cm/sec. Right Extracranial There is homogeneous, smooth atherosclerotic plaque noted in the right common carotid artery. There is heterogeneous, irregular atherosclerotic plaque noted in the right internal carotid artery. There is heterogeneous, irregular atherosclerotic plaque noted in the right external carotid artery. Antegrade flow is noted in the right vertebral artery. Abnormal waveform morphology noted in the right vertebral artery. Left Extracranial There is homogeneous, smooth atherosclerotic plaque noted in the left common carotid artery. There is heterogeneous, irregular atherosclerotic plaque noted in the left internal carotid artery. There is heterogeneous, irregular atherosclerotic plaque noted in the left external carotid artery. Antegrade flow is noted in the left vertebral artery. Procedure Carotid Duplex [id number]. This is a Carotid Duplex examination using B-mode, color flow and specral Doppler. Exam performed in department. VL/Carotid Duplex Ultrasound Interpretation Summary Mild (<50%) stenosis right extracranial internal carotid. Mild (<50%) stenosis left extracranial internal carotid. Flow within the vertebral arteries is antegrade bilaterally. Ordering Physician: Vida Martinez Referring Physician: Jennifer Watt M.D. Performed By: Tish Riddle RVT
--- NOTE | 2021-10-20 09:07 | RDU_ITS ---
Reason For Study: Renal artery stenosis Right Renal Artery Left Renal Artery Right renal artery ostium 178.8/20.4 Left renal artery ostium 172.3/17.1 RSV/EDV. PSV/EDV. Right renal artery proximal Left renal artery proximal PSV/EDV 154.6/24.6 PSV/EDV. 156.1/13.9 . Right renal artery mid 182.1/23.6 Left renal artery mid 146.4/13.9 PSV/EDV. PSV/EDV . Right renal artery distal 125.2/20.7 Left renal artery distal 105.2/15.7 PSV/EDV. PSV/EDV. Right Renal Parenchyma Left Renal Parenchyma Upper Pole Medula 27.1/6.2 PSV/EDV. Left upper pole medulla 25.9/6.9 Right upper pole medulla EDR 0.2 . PSV/EDV . Right upper pole medulla R.I. 0.77 . Left upper pole medulla EDR 0.3 . Upper Jordy Cortx 17.8/4 PSV/EDV. Left upper pole medulla R.I. 0.73 . Right upper pole cortex EDR 0.2 . UP Cortex 17.9/5.7 PSV/EDV. Right upper pole cortex R.I. 0.77 . Left upper pole cortex EDR 0.3 . Right lower Pole medulla 24.9/5.1 Left upper pole cortex R.I. 0.68 . PSV/EDV . Left lower Pole medulla 22.7/5.5 Right lower pole medulla EDR 0.2 . PSV/EDV . Right lower pole medulla R.I. 0.79 . Left lower pole medulla EDR 0.2 . Lower Pole Cortex 17.2/4 PSV/EDV. Left lower pole medulla R.I. 0.76 . Right lower pole cortex EDR 0.2 . Lower Pole Cortx 18.4/6.1 PSV/EDV. Right lower pole cortex R.I. 0.77 . Left lower pole cortex EDR 0.3 . Right Renal Hilar Left lower pole cortex R.I. 0.67 . Right Hilar avg 77.9/18.7 PSV/EDV. Left Renal Hilar Right hilar acceleration time 50 LT Hilar avg 54.6/9.2 PSV/EDV . m/sec. Left hilar acceleration time 40 Right Renal Dimensions m/sec. Right kidney size 1.79 cm . Left Renal Dimensions Right cortical dimension 1.70 cm . Left kidney size 10.39 cm . Nonvascularized structure noted on Left cortical dimension 1.51 cm . the lower pole of the kidney that Nonvascularized structure noted in measure 4.37 x 4.28 cm. the upper pole of the kidney measures 2.47 x 2.51 cm. Aorta Proximal abdominal aorta 2.02 x 2.01 cm . Proximal abdominal aorta peak systolic velocity is 90.1 cm/sec . Distal abdominal aorta 2.87 x 2.86 cm . Distal abdominal aorta peak systolic velocity is 86.4 cm/sec . VL/Renal Artery Duplex Ultrasound Interpretation Summary Bilateral renal arteries with less than 60% degree of stenosis. Ordering Physician: Gumaro Tapia Referring Physician: Jennifer Watt M.D. Performed By: Tish Riddle RVT
== END | disposition home or self-care (01) ==
LOC: CVS 08:59
PROVIDERS: PCP Internal Medicine; Referring Provider Nurse Practitioner Gerontology; Visit Provider Nurse Practitioner Gerontology
DX: I65.23 Occlusion and stenosis of bilateral carotid arteries (principal); I70.1 Atherosclerosis of renal artery; I71.4 Abdominal aortic aneurysm, without rupture; I77.1 Stricture of artery; E11.9 Type 2 diabetes mellitus without complications; I10 Essential (primary) hypertension
CPT/HCPCS: 93880; 93975

== ENCOUNTER → 2021-11-17 | Outpatient (CLI) | payer MEDICARE, SELFPAY ==
[2021-11-17 17:42] LABS: Anion Gap 9 (5-15); BUN 23 mg/dL (7-18); BUN/Creat Ratio 18.7 RATIO (10-20); Calcium,Total 9.2 mg/dL (8.5-10.1); Chloride 100 mmol/L (98-107); Creatinine, Serum 1.23 mg/dL (0.70-1.30); EST Glomerular Filtration Rate 60 mL/min (>60); Est Glom Filt Rate - Afr Amer 72 mL/min (>60); Glucose 109 mg/dL (74-106); Sodium Level 138 mmol/L (136-145)
== END | disposition home or self-care (01) ==
LOC: LAB 13:58
PROVIDERS: PCP Internal Medicine; Referring Provider Nurse Practitioner Gerontology; Visit Provider Nurse Practitioner Gerontology
DX: E87.1 Hypo-osmolality and hyponatremia (principal)
CPT/HCPCS: 36415; 80048

== ENCOUNTER → 2022-01-18 | Outpatient (CLI) | payer MEDICARE, SELFPAY ==
[2022-01-18 12:23] LABS: Color, Urine Yellow (Yellow); Glucose, Dipstick Normal (Normal); Ketone-Dipstick Negative (Negative); Leukocyte Esterase-Dipstick Negative /ul (Negative); Nitrite-Dipstick Negative (Negative); Occult Blood-Urine 10 /ul (Negative); Protein-Dipstick 30 mg/dl (Negative); Urine Bilirubin Dipstick Negative (Negative); Urine Clarity Clear (Clear); Urine Urobilinogen Normal (Normal)
[2022-01-18 12:24] LABS: Absolute Neutrophil Count 4.3 X10^3/uL (2.0-7.7); Basophil# 0.06 X10^3/uL; Basophil% 0.9 % (0-1); Eosinophil# 0.35 X10^3/uL; Eosinophils% 5.1 % (0-5); Hematocrit 32.4 % (40-54); Hemoglobin 10.2 g/dL (13.0-16.5); Mean Corp Hgb Conc 31.5 g/dL (32-36); Mean Corpuscular Hgb 29.8 pg (27.0-32.0); Mean Corpuscular Volume 94.7 fL (80-94); Mean Platelet Vol. 11.4 fl (6.2-12.0); Monocyte# 0.79 X10^3/uL; Monocyte% 11.5 % (0-10); NRBC Flagged by Analyzer 0.3 % (0-5); Neutrophil # 4.34 X10^3/uL (2.7-7.7); Neutrophil % 63.2 % (47-70); Platelet Count 218 K/mm3 (150-450); RBC Distribution Width CV 14.3 % (11.6-14.6); RBC Distribution Width SD 50.1 fl (35.1-43.9); Red Blood Count 3.42 M/mm3 (4.6-6.2); White Blood Count 6.9 K/mm3 (4.4-11.0)
[2022-01-18 12:48] LABS: Vitamin D,25 Hydroxy 52.7 ng/mL
[2022-01-18 12:50] LABS: PTHIN 15.9 pg/mL (18.4-80.1)
[2022-01-18 13:05] LABS: Protein, Urine (Random) 39.9 mg/dL (<11.9)
[2022-01-18 13:17] LABS: Albumin, Serum 3.4 g/dL (3.2-5.0); BUN 39 mg/dL (7-18); BUN/Creat Ratio 23.6 RATIO (10-20); Chloride 108 mmol/L (98-107); Creatinine, Serum 1.65 mg/dL (0.70-1.30); EST Glomerular Filtration Rate 43 mL/min (>60); Est Glom Filt Rate - Afr Amer 52 mL/min (>60); Ferritin 48 ng/mL (26-388); Glucose 91 mg/dL (74-106); Iron 44 ug/dL (65-175); Iron Binding Capacity,Total 306 ug/dL (250-450); PERCENT IRON SATURATION 14.4 % (15.0-55.0); PSA,Total - Annual Screen 0.79 ng/mL (0.00-4.00); Phosphorus 3.8 mg/dL (2.5-4.9); Potassium 5.2 mmol/L (3.5-5.1); Sodium Level 138 mmol/L (136-145)
[2022-01-22 19:07] LABS: Aldosterone, Serum 3.2 ng/dL (0.0-30.0); PROEL- A/G Ratio 1.3 (0.7-1.7); PROEL- Albumin 3.6 g/dL (2.9-4.4); PROEL- Alpha-1 Globulin 0.3 g/dL (0.0-0.4); PROEL- Alpha-2 Globulin 0.9 g/dL (0.4-1.0); PROEL- Beta Globulin 0.9 g/dL (0.7-1.3); PROEL- Gamma Globulin 0.7 g/dL (0.4-1.8); PROEL- Globulin, Total 2.8 g/dL (2.2-3.9); PROEL- TOTAL PROTEIN 6.4 g/dL (6.0-8.5)
[2022-01-24 10:18] LABS: Renin, Plasma 1.244 ng/mL/hr (0.167-5.380)
== END | disposition home or self-care (01) ==
PROVIDERS: PCP Internal Medicine; Referring Provider Internal Medicine Nephrology; Visit Provider Internal Medicine Nephrology
DX: I70.1 Atherosclerosis of renal artery (principal); N18.9 Chronic kidney disease, unspecified; Z12.5 Encounter for screening for malignant neoplasm of prostate
CPT/HCPCS: 36415; 80069; 81002; 82088; 82306; 82570; 82728; 83540; 83550; 83970; 84153; 84156; 84165; 84244; 85025; G0103

== ENCOUNTER → 2022-02-11 | Outpatient (CLI) | payer MEDICARE, SELFPAY | END | disposition home or self-care (01) | LOC: LABSPEC 15:40 | PROVIDERS: PCP Internal Medicine; Visit Provider Internal Medicine | DX: R35.0 Frequency of micturition (principal) ==

== ENCOUNTER 2022-02-16 14:24 | Inpatient (IN) | payer MEDICARE, SELFPAY ==
[2022-02-16] VITALS (14 sets, daily range): BP systolic 86–174; BP diastolic 43–75; PULSE 34–57; RESP 11–19; TEMP 35.3–36.9; O2SAT 87–97; BMI 23.7; BMI 27.4
--- NOTE | 2022-02-16 14:51 | EKG12_ITS ---
Test Reason : SYNCOPE Blood Pressure : / mmHG Vent. Rate : 036 BPM Atrial Rate : 000 BPM P-R Int : 000 ms QRS Dur : 122 ms QT Int : 546 ms P-R-T Axes : 000 064 064 degrees QTc Int : 422 ms Junctional bradycardia Abnormal ECG When compared with ECG of 02-MAY-2021 14:49, Idioventricular rhythm has replaced Sinus rhythm Confirmed by LEONARDO STRONG, GEMMA ([id number]), editor at large AP NUNEZ ([id number]) on 02/18/2022 9:36:37 AM Referred By: ERNST Confirmed By:GEMMA PATTERSON MD
[2022-02-16] MEDS: Atropine Sulfate 1 MG/10 ML Syringe 0.5 MG IV ×2 (14:56→16:48)
[2022-02-16 15:12] LABS: Absolute Neutrophil Count 4.9 X10^3/uL (2.0-7.7); Basophil# 0.07 X10^3/uL; Basophil% 0.9 % (0-1); Eosinophil# 0.36 X10^3/uL; Eosinophils% 4.9 % (0-5); Hematocrit 31.1 % (40-54); Lymphocyte % 17.6 % (19-41); Mean Corp Hgb Conc 32.2 g/dL (32-36); Mean Corpuscular Hgb 30.1 pg (27.0-32.0); Mean Corpuscular Volume 93.7 fL (80-94); Mean Platelet Vol. 10.9 fl (6.2-12.0); Monocyte# 0.73 X10^3/uL; Monocyte% 9.9 % (0-10); NRBC Flagged by Analyzer 0 % (0-5); Neutrophil # 4.88 X10^3/uL (2.7-7.7); Neutrophil % 66.3 % (47-70); Platelet Count 234 K/mm3 (150-450); RBC Distribution Width CV 14.3 % (11.6-14.6); RBC Distribution Width SD 49.1 fl (35.1-43.9); Red Blood Count 3.32 M/mm3 (4.6-6.2); White Blood Count 7.4 K/mm3 (4.4-11.0)
[2022-02-16 15:19] LABS: International Normalized Ratio 1.2; Prothrombin Time (Protime)PT. 14.5 SECONDS (11.7-14.9)
--- NOTE | 2022-02-16 15:22 | NURSING ---
hr up to 45 now after atropine given. bp sbp >100 now.
[2022-02-16 15:33] LABS: BNP,B-Type NATRIURETIC PEPTIDE 389.9 pg/mL (0-100)
[2022-02-16 15:38] LABS: Anion Gap 8 (5-15); BUN 46 mg/dL (7-18); BUN/Creat Ratio 19.7 RATIO (10-20); Calcium,Total 9.3 mg/dL (8.5-10.1); Chloride 106 mmol/L (98-107); Creatinine, Serum 2.34 mg/dL (0.70-1.30); EST Glomerular Filtration Rate 29 mL/min (>60); Est Glom Filt Rate - Afr Amer 34 mL/min (>60); Estimated Creatinine Clearance 25.92 ml/min; Glucose 123 mg/dL (74-106); Magnesium 1.8 mg/dL (1.6-2.6); Potassium 5.8 mmol/L (3.5-5.1); Sodium Level 137 mmol/L (136-145); Thyroid Stim Hormone (TSH) 2.51 uIU/mL (0.358-3.74); Troponin-I HS (w/2H Reflex) 8 pg/mL (3.0-78.0)
--- NOTE | 2022-02-16 15:38 | EDS_ITS ---
HPI History of Present Illness Chief Complaint: Weakness Informant: patient Narrative Narrative: Patient is an 81 year old male with history of difficult to control hypertension, diabetes mellitus, type 2 diabetes mellitus and stroke with residual left-sided deficits presenting after a near syncopal episode. Patient was had a stroke seminar and medical education building. He was transferring from his wheelchair into the chair when suddenly he felt that the muscles in my back were weak. states that his eyes seem to stare off and seem rigid. Rapid response was called and patient was brought to the ER. Patient was noted to be bradycardic and hypotensive. states that they have been dealing with blood pressure and heart rate. His heart rate has been in the 40s to 50s normally. He recently was taken off of his metoprolol and was increased on his clonidine. He has been taking 0.4 mg of clonidine twice a day however his is not certain that is what they sent over the phone. This was a week ago. Patient also appears to be on Cardizem however they are not sure if he has been taking that. His log buyer is Dr. Lucero. Patient denies any complaints at this time except for feeling weak. [facility] Medical History Absent pedal pulses Acute left-sided muscle weakness Depression Dysphagia Essential hypertension Facial droop due to acute stroke History of CVA (cerebrovascular accident) (12/2020) Hydrocele in adult Hyperlipidemia Normocytic normochromic anemia Osteoarthritis Peripheral vascular occlusive disease Proteinuria due to type 2 diabetes mellitus Recurrent inguinal hernia of right side without obstruction or gangrene Restless legs Right pontine CVA Right renal artery stenosis Skin lesion of face Type 2 diabetes mellitus Home Medications multivitamin,[id number] (Complete Multivitamin tablet) 1 tab PO QDAY supplement 03/03/17 [History Last Taken 02/16/22] aspirin 81 mg chewable tablet 81 mg PO BREAKFAST heart health 01/02/21 [History Last Taken 02/16/22] Arthritis Pain Compound 0 click topical BID ##0 01/27/21 [Rx Last Taken Unknown] latanoprost 0.005 % eye drops 1 drp EACH EYE HS #0 mL 01/27/21 [Rx Last Taken 02/15/22] Handicap Placard #1 ea 12/02/21 [Rx Last Taken Unknown] gabapentin 100 mg capsule 100 mg PO BID #40 caps 02/26/21 [Rx Last Taken 02/15/22] gabapentin 300 mg capsule 300 mg PO 2100 #20 caps 02/26/21 [Rx Last Taken 02/15/22] hydrochlorothiazide 25 mg tablet 25 mg PO DAILY awaiting mail in RX #30 tabs 0 05/19/21 [Rx Last Taken 02/16/22] pen needle, diabetic 32 gauge x /32 (BD Sanaz 2nd Gen Pen Needle) #50 ea 06/02/21 [Rx Last Taken Unknown] doxazosin 8 mg tablet 8 mg PO QHS #90 tabs 09/29/21 [Rx Last Taken 02/15/22] pramipexole 0.125 mg tablet 0.125 mg PO QHS #90 tabs 10/13/21 [Rx Last Taken 02/15/22] spironolactone 50 mg tablet 50 mg PO DAILY #90 tabs 11/18/21 [Rx Last Taken 02/16/22] carvedilol 25 mg tablet 25 mg PO BID #180 tabs 01/06/22 [Rx Last Taken 02/16/22] clopidogrel 75 mg tablet (Plavix) 75 mg PO DAILY #90 tabs 01/06/22 [Rx Last Taken 02/16/22] ezetimibe 10 mg tablet (Zetia) 10 mg PO DAILY #90 tabs 01/06/22 [Rx Last Taken 02/15/22] sertraline 50 mg tablet 50 mg PO DAILY #90 tabs 01/06/22 [Rx Last Taken 02/16/22] nifedipine 30 mg tablet,extended release 24 hr 30 mg PO BID #90 tabs 02/15/22 [Rx Last Taken 02/16/22] clonidine HCl 0.1 mg tablet 0.4 mg PO BID Elevated Blood pressure 02/16/22 [History Last Taken 02/16/22] insulin glargine 100 unit/mL (3 mL) subcutaneous pen (Basaglar PatriziaPen U-100 Insulin) 14 unit subcut DAILY Diabetes 02/16/22 [History Last Taken 02/16/22] metformin 1,000 mg tablet 1,000 mg PO DINNER 02/16/22 [History Last Taken 02/15/22] metformin 500 mg tablet 500 mg PO DAILY DIABETES 02/16/22 [History Last Taken 02/16/22] valsartan 320 mg tablet 160 mg PO QHS BP 02/16/22 [History Last Taken 02/15/22] Allergy/AdvReac Type Severity Reaction Status Date / Time meloxicam [From Mobic] Allergy Intermediate itching Verified 02/16/22 14:25 pravastatin [From Pravachol] AdvReac Mild myalgia Verified 02/16/22 14:25 cholestyramine AdvReac hypoglycemi Verified 02/16/22 14:25 a Family History Mother Hypertension Cancer Father Heart disease Diabetes Surgical History History of cataract surgery History of herniorrhaphy History of lumbar laminectomy History of stent insertion of renal artery (08/05/21) Status post laser cataract surgery of left eye Social History household members: spouse and other details: Abigail is his 's name housing: house number of children: 2 current occupational status: retired and other details: worked for [employer] prior to retiring leisure activities: other Smoking Status: Never smoker Electronic Cigarette Use: not used alcohol intake: former substance use type: does not use what type of physical activity do you participate in: walking frequency: 1-2 times per week ROS ROS ED Constitutional Constitutional ED: Reports other Details: Generalized weakness, near syncope ; Denies chills or fever(s) Eyes Eyes: Denies change in vision ENT ENT ED: Denies rhinorrhea or sore throat Cardiovascular Cardiovascular: Denies chest pain or palpitations Respiratory/Chest Respiratory/Chest: Denies cough or dyspnea Gastrointestinal Gastrointestinal: Denies abdominal pain, diarrhea, melena, nausea or vomiting Musculoskeletal Musculoskeletal: Denies arthralgias or myalgias Integumentary Denies rash Neurologic Neurologic: Reports weakness; Denies headache(s) Psychiatric Psychiatric: Denies anxiety Hematologic/Lymphatic Hematologic/Lymphatic: Denies easy bleeding or easy bruising EXAM Physical Exam Const Vital Signs: 02/16/22 14:25 02/16/22 14:45 02/16/22 14:33 Temperature 95.5 F L Temperature Source Temporal Pulse Rate 35 L 34 L Respiratory Rate 11 L 17 Respiratory Effort Normal Respiratory Pattern Normal Blood Pressure 86/43 L 91/48 L Blood Pressure Mean 57 62 Pulse Ox 97 97 Oxygen Delivery Method Room Air Room Air 02/16/22 14:54 02/16/22 16:12 Temperature Temperature Source Pulse Rate 40 L Respiratory Rate 16 Respiratory Effort Respiratory Pattern Blood Pressure 97/53 L Blood Pressure Mean 67 Pulse Ox 95 96 Oxygen Delivery Method Room Air Room Air Positive well nourished and well developed General Appearance ED: well developed and pallor HEENT Reports dry mucous membranes Mouth ED: Yes dry mucous membranes Mouth: dry mucous membranes Eyes PERRL and EOMs intact bilaterally Neck supple and no JVD Chest Wall inspection of chest normal and palpation of chest normal Resp normal respiratory effort and clear to auscultation bilaterally Cardio regular rhythm and no murmurs Rate: bradycardia GI normal to inspection, nondistended, normoactive bowel sounds and non-tender Extremity Extremity Narrative: 2+ pitting pretibial edema General Extremety ED: Yes edema; Negative for tenderness General Extremity: edema Neuro oriented x3 Neuro Narrative: Left-sided deficits?chronic Sensorium / Orientation: alert Motor Exam: general weakness Psych mental status grossly normal Skin no rashes or lesions noted and no wounds General Skin Exam: pallor MDM MDM MDM Narrative Medical decision making narrative: Patient evaluated after near syncopal episode. Upon arrival he is hypotensive and bradycardic. Patient has pallor. His rhythm is an interventricular conduction delay. I do not see an obvious block. After further discussion it sounds like patient might be taking too much of his clonidine. He states he is taking 0.4 mg twice a day a new change in his medications and I am not sure if this is accurate. he did recently stop his metoprolol but also looks like he is on carvedilol. Patient is given 0.5 mg of atropine with improvement of his heart rate. His blood pressure improved. He is given some IV fluids. Case is discussed with on-call cardiology, Dr. Adamson, who recommends that if he continues to have persistent hypotension/bradycardia to start a dopamine drip. Patient's work-up otherwise is remarkable for findings of right lower lung infiltrate on chest x-ray. Initially there is no report of any fever or pneumonia symptoms however patient does cough/choke with eating so is possible this could be an aspiration. Will cover with Unasyn. Patient's creatinine is elevated at 2.34. Suspect he is intravascular depleted.Potassium is 5.8 however I do not think this explains his arrhythmia. Patient is treated with IV fluids. He is admitted to the ICU given his arrhythmia and hypotension. Blood cultures and lactate added on as he ultimately found have an infection. Patient is given a second dose of atropine while in the emergency room. He does respond with the dose. Lab Data Attestation: I reviewed the patient's lab results. Labs: Laboratory Results - last 24 hr 02/16/22 02/16/22 02/16/22 14:55 14:55 14:55 WBC 7.4 RBC 3.32 L Hgb 10.0 L Hct 31.1 L MCV 93.7 MCH 30.1 MCHC 32.2 RDW Std Deviation 49.1 H RDW Coeff of Cait 14.3 Plt Count 234 MPV 10.9 Immature Gran % (Auto) 0.400 Neut % (Auto) 66.3 Lymph % (Auto) 17.6 L Crowley % (Auto) 9.9 Eos % (Auto) 4.9 Baso % (Auto) 0.9 Absolute Neuts (auto) 4.9 Absolute Lymphs (auto) 1.30 Nucleated RBC % 0 PT INR Sodium 137 Potassium 5.8 H Chloride 106 Carbon Dioxide 23.0 Anion Gap 8 BUN 46 H Creatinine 2.34 H Estim Creat Clear Calc 25.92 Est GFR (MDRD) Af Amer 34 L Est GFR (MDRD) Non-Af 29 L BUN/Creatinine Ratio 19.7 Glucose 123 H Calcium 9.3 Magnesium 1.8 Troponin I High Sens 8 B-Natriuretic Peptide TSH 2.51 Blood Type O POSITIVE Antibody Screen NEGATIVE 02/16/22 02/16/22 14:55 14:55 WBC RBC Hgb Hct MCV MCH MCHC RDW Std Deviation RDW Coeff of Cait Plt Count MPV Immature Gran % (Auto) Neut % (Auto) Lymph % (Auto) Crowley % (Auto) Eos % (Auto) Baso % (Auto) Absolute Neuts (auto) Absolute Lymphs (auto) Nucleated RBC % PT 14.5 INR 1.2 Sodium Potassium Chloride Carbon Dioxide Anion Gap BUN Creatinine Estim Creat Clear Calc Est GFR (MDRD) Af Amer Est GFR (MDRD) Non-Af BUN/Creatinine Ratio Glucose Calcium Magnesium Troponin I High Sens B-Natriuretic Peptide 389.9 H TSH Blood Type Antibody Screen Radiography Chest X-Ray - ED: 1 View, Read by ED Physician, Read by Radiologist and No Acute Disease Diagnostic Testing: Clinical Impression(s) from Imaging Studies Chest X-Ray 02/16/22 15:50 IMPRESSION: Bibasilar atelectasis and right lower lung infiltrates. Electronically Signed: Angel Kuo MD at 16:47 EST , Rhythm Strip Rhythm Strip: Bradycardia Rate: 36 Ectopy: None EKG Initial EKG: Comments: Interventricular conduction today with bradycardia at a rate of 36 bpm Normal axis no P waves appreciated Normal QRS and QTc Normal ST segments Compared to prior EKG on 05/02/2021 patient's now has an interventricular conduction delay and more pronounced bradycardia bradycardic Critical Care Time Critical Care Time: Yes Critical care time (excluding procedures): 30-74 minutes (40), Discussing w/Patient &/or Family/Human Service Specialist, Discussing w/Consultants, Arranging Admission or Transfer and Performing Direct Patient Care at Bedside Discharge Plan Triage Chief Complaint: Weakness ED Provider: Antonette Alonzo Dx/Rx/DC Orders Clinical Impression: NABILA (acute kidney injury), Bradycardia, Near syncope, Acute hypotension, Accidental overdose of clonidine, Aspiration pneumonia Primary Care Provider: Jennifer Watt Disposition Disposition: Acute Care [facility]
--- NOTE | 2022-02-16 15:50 | RAD_ITS ---
STUDY: X-RAY CHEST REASON FOR EXAM: Male, 81 years old. Chest pain TECHNIQUE: Portable, upright, AP chest x-ray COMPARISON: 05/01/2021 FINDINGS: Right lower lung infiltrates. Bibasilar atelectasis. There is no demonstrated pleural abnormality. Normal size heart. Normal mediastinum and arianne. Normal visualized pulmonary arteries. Aortic arch calcification. There is no demonstrated abnormality of the visualized soft tissue structures of the upper abdomen. RAD/Chest 1 View (Portable) IMPRESSION: Bibasilar atelectasis and right lower lung infiltrates. Electronically Signed: Angel Kuo MD at 16:47 EST ,
[2022-02-16] MEDS: 0.9% Normal Saline 1,000 ML 150 ML IV ×2 (16:13→22:47)
--- NOTE | 2022-02-16 16:13 | EKG12_ITS ---
Test Reason : RE CHECK Blood Pressure : / mmHG Vent. Rate : 042 BPM Atrial Rate : 000 BPM P-R Int : 000 ms QRS Dur : 088 ms QT Int : 524 ms P-R-T Axes : 000 070 058 degrees QTc Int : 437 ms Junctional bradycardia Abnormal ECG Confirmed by LEONARDO STRONG, GEMMA ([id number]), primer expeditor and drier AP NUNEZ ([id number]) on 02/18/2022 9:38:28 AM Referred By: Confirmed By:GEMMA PATTERSON MD
[2022-02-16 17:06] LABS: Reflex Troponin-HS? (from REC) Y
--- NOTE | 2022-02-16 17:16 | PCM.HP.STD ---
HPI - General General Date of Admission: 02/16/22 Date of Service: 02/16/22 Chief Complaint: Presyncope - 1 day HPI Narrative SHAISTA CLOUD, is a 81 M who presents with the above. Patient has past medical history of Type II DM, CVA, hypertension, who came to the hospital today for his monthly stroke support meeting. Patient was going home when was being helped by the volunteers to get into the car, he felt dizzy and slumped backwards. His found his eyes glazed and he was not really responding. He appeared to have responded a few minutes later. He was said to have looked singh/ashen. Rapid response was called. Patient initially was reluctant to be sent to the emergency room. He later on agreed and was sent to the emergency room. At the time of being seen, patient denied any chest pain or dizziness or palpitations. He denied any fever or chills he denied any recent illness. He recently had been taking his medication wrongly because he thought he was supposed to take clonidine 0.4 mg twice daily. He admitted that lately, over the past 2 months, he has had trouble swallowing and has been coughing whilst eating. Cough is nonproductive. He denied any nausea vomiting or diarrhea Vitals in the ED showed blood pressure 86/43, heart rate 35, respiratory 11, temperature 95.5, oxygen thousand 7% on room air. His WBC count was 7.4, hemoglobin 10.0, recent hemoglobin was 10.2, platelet count was 234. INR is 1.2, sodium 137, potassium 5.8, chloride 106, bicarbonate 20, BUN 46, creatinine 2.34, previous creatinine 1 month ago was 1.65. Magnesium was 1.8. BNP was 38 and 9.9, TSH 2.51. Admitting chest x-ray showed bibasilar atelectasis and right lower lung infiltrate. [facility] Medical History Absent pedal pulses Acute left-sided muscle weakness Depression Dysphagia Essential hypertension Facial droop due to acute stroke History of CVA (cerebrovascular accident) (12/2020) Hydrocele in adult Hyperlipidemia Normocytic normochromic anemia Osteoarthritis Peripheral vascular occlusive disease Proteinuria due to type 2 diabetes mellitus Recurrent inguinal hernia of right side without obstruction or gangrene Restless legs Right pontine CVA Right renal artery stenosis Skin lesion of face Type 2 diabetes mellitus Home Medications multivitamin,[id number] (Complete Multivitamin tablet) 1 tab PO QDAY supplement 03/03/17 [History Last Taken 02/16/22] aspirin 81 mg chewable tablet 81 mg PO BREAKFAST heart health 01/02/21 [History Last Taken 02/16/22] Arthritis Pain Compound 0 click topical BID ##0 01/27/21 [Rx Last Taken Unknown] latanoprost 0.005 % eye drops 1 drp EACH EYE HS #0 mL 01/27/21 [Rx Last Taken 02/15/22] Handicap Placard #1 ea 02/12/21 [Rx Last Taken Unknown] gabapentin 100 mg capsule 100 mg PO BID #40 caps 02/26/21 [Rx Last Taken 02/15/22] gabapentin 300 mg capsule 300 mg PO 2100 #20 caps 02/26/21 [Rx Last Taken 02/15/22] hydrochlorothiazide 25 mg tablet 25 mg PO DAILY awaiting mail in RX #30 tabs 05/19/21 [Rx Last Taken 02/16/22] pen needle, diabetic 32 gauge x 5/32 (BD Sanaz 2nd Gen Pen Needle) #50 ea 06/02/21 [Rx Last Taken Unknown] doxazosin 8 mg tablet 8 mg PO QHS #90 tabs 09/29/21 [Rx Last Taken 02/15/22] pramipexole 0.125 mg tablet 0.125 mg PO QHS #90 tabs 10/13/21 [Rx Last Taken 02/15/22] spironolactone 50 mg tablet 50 mg PO DAILY #90 tabs 11/18/21 [Rx Last Taken 02/16/22] carvedilol 25 mg tablet 25 mg PO BID #180 tabs 01/06/22 [Rx Last Taken 02/16/22] clopidogrel 75 mg tablet (Plavix) 75 mg PO DAILY #90 tabs 01/06/22 [Rx Last Taken 02/16/22] ezetimibe 10 mg tablet (Zetia) 10 mg PO DAILY #90 tabs 01/06/22 [Rx Last Taken 02/15/22] sertraline 50 mg tablet 50 mg PO DAILY #90 tabs 01/06/22 [Rx Last Taken 02/16/22] nifedipine 30 mg tablet,extended release 24 hr 30 mg PO BID #90 tabs 02/15/22 [Rx Last Taken 02/16/22] clonidine HCl 0.1 mg tablet 0.4 mg PO BID Elevated Blood pressure 02/16/22 [History Last Taken 02/16/22] insulin glargine 100 unit/mL (3 mL) subcutaneous pen (Basaglar KwikPen U-100 Insulin) 14 unit subcut DAILY Diabetes 02/16/22 [History Last Taken 02/16/22] metformin 1,000 mg tablet 1,000 mg PO DINNER 02/16/22 [History Last Taken 02/15/22] metformin 500 mg tablet 500 mg PO DAILY DIABETES 02/16/22 [History Last Taken 02/16/22] valsartan 320 mg tablet 160 mg PO QHS BP 02/16/22 [History Last Taken 02/15/22] Allergy/AdvReac Type Severity Reaction Status Date / Time meloxicam [From Mobic] Allergy Intermediate itching Verified 02/16/22 14:25 pravastatin [From Pravachol] AdvReac Mild myalgia Verified 02/16/22 14:25 cholestyramine AdvReac hypoglycemi Verified 02/16/22 14:25 a Family History Mother Hypertension Cancer Father Heart disease Diabetes Surgical History History of cataract surgery History of herniorrhaphy History of lumbar laminectomy History of stent insertion of renal artery (08/05/21) Status post laser cataract surgery of left eye Social History household members: spouse and other details: Abigail is his 's name housing: house number of children: 2 current occupational status: retired and other details: worked for [employer] prior to retiring leisure activities: other Smoking Status: Never smoker Electronic Cigarette Use: not used alcohol intake: former substance use type: does not use what type of physical activity do you participate in: walking frequency: 1-2 times per week ROS ROS Narrative Constitutional: Denies: Anorexia, Chills, Fever, Night Sweats, Weight Change Eyes: Denies: Blurred vision, Cataracts, Conjunctivae Inflammation, Pain, Redness, Vision Change HEENT: Denies: Difficulty Hearing, Difficulty Swallowing, Head Aches, Hearing Changes, Sinus Congestion, Sinus Drainage Cardiovascular: See HPI Respiratory: Denies: Cough, Shortness of breath at rest, Sputum production Gastrointestinal: Denies: Abdominal Pain, Nausea, Vomiting Genitourinary: Denies: Dysuria Musculoskeletal: Denies: Joint Pain, Joint stiffness, Joint swelling, Joint Tenderness Skin: Denies: Rash, Wounds Neurological: Denies: Numbness, Tingling, Focal weakness Vital Signs Vital Signs Vital Signs: 02/16/22 14:25 02/16/22 14:45 02/16/22 14:33 Temperature 95.5 F L Temperature Source Temporal Pulse Rate 35 L 34 L Respiratory Rate 11 L 17 Respiratory Effort Normal Respiratory Pattern Normal Blood Pressure 86/43 L 91/48 L Blood Pressure Mean 57 62 Pulse Ox 97 97 Oxygen Delivery Method Room Air Room Air 02/16/22 14:54 02/16/22 16:12 Temperature Temperature Source Pulse Rate 40 L Respiratory Rate 16 Respiratory Effort Respiratory Pattern Blood Pressure 97/53 L Blood Pressure Mean 67 Pulse Ox 95 96 Oxygen Delivery Method Room Air Room Air Weight Weight: 77.111 kg Body Mass Index (BMI) 23.7 Physical Exam Narrative Physical exam: General: Alert, Oriented x3, Cooperative, appears very frail, not on oxygen HEENT: Atraumatic Oral: Moist Mucosa Neck: Supple Lungs: Diminished to auscultation, few crackles especially in the right lower lung base Cardiovascular: HS I+II, regular, no murmurs Abdomen: Bowel Sounds Present, Soft, Non Tender Extremities: Bilateral pedal edema +1 Skin: No rashes, No breakdown Neurological: Grossly intact Psych/Mental Status: Appropriate Results Lab / Micro Data Result Diagrams: 02/16/22 14:55 02/16/22 14:55 Labs: Laboratory Results - last 24 hr 02/16/22 14:55: WBC 7.4, RBC 3.32 L, Hgb 10.0 L, Hct 31.1 L, MCV 93.7, MCH 30.1, MCHC 32.2, RDW Std Deviation 49.1 H, RDW Coeff of Cait 14.3, Plt Count 234, MPV 10.9, Immature Gran % (Auto) 0.400, Neut % (Auto) 66.3, Lymph % (Auto) 17.6 L, [place] % (Auto) 9.9, Eos % (Auto) 4.9, Baso % (Auto) 0.9, Absolute Neuts (auto) 4.9, Absolute Lymphs (auto) 1.30, Nucleated RBC % 0 02/16/22 14:55: Sodium 137, Potassium 5.8 H, Chloride 106, Carbon Dioxide 23.0, Anion Gap 8, BUN 46 H, Creatinine 2.34 H, Estim Creat Clear Calc 25.92, Est GFR (MDRD) Af Amer 34 L, Est GFR (MDRD) Non-Af 29 L, BUN/Creatinine Ratio 19.7, Glucose 123 H, Calcium 9.3, Magnesium 1.8, Troponin I High Sens 8, TSH 2.51 02/16/22 14:55: Blood Type O POSITIVE, Antibody Screen NEGATIVE 02/16/22 14:55: PT 14.5, INR 1.2 02/16/22 14:55: B-Natriuretic Peptide 389.9 H Micro: Microbiology 02/16/22 15:15 Stool Stool Occult Blood (DAX) - Final Rhythm Strip Rhythm Strip: Bradycardia Rate: 36 Ectopy: None Radiology Impression Chest X-Ray 02/16/22 15:50 IMPRESSION: Bibasilar atelectasis and right lower lung infiltrates. Electronically Signed: Angel Kuo MD at 16:47 EST , Assessment & Plan Assessment/Plan (1) NABILA (acute kidney injury): PLAN: Plan 1. Acute syncope, multifactorial secondary to hypotension/bradycardia/severe dehydration/acute kidney injury Will treat underlying current issues 2D echo, check orthostatic vitals 2. Acute hypotension/bradycardia likely secondary to overmedication Patient stated that there was a recent medication changes done over the phone by his primary care doctor He apparently is taking clonidine 0.4 mg twice daily, Coreg, doxazosin, hydrochlorothiazide, spironolactone, valsartan, nifedipine Patient came in with significant bradycardia, heart rate of 35; EKG shows junctional rhythm. TSH is 2.51 Patient received 2 doses of atropine; Will consult cardiology Hold all antihypertensives, continue on IV fluid Trend troponins, follow-up on 2D echo We will obtain an accurate med list from patient's physician 3. Acute kidney injury on CKD IIIa, likely prerenal from dehydration/medication side effect Patient's admitting creatinine is 2.34; previous creatinine was 1.65 Continue to hold blood pressure medications Will continue on IV fluids, trend labs in a.m. 4. Probable aspiration pneumonia, patient with reported cough whilst eating Chest x-ray with right lower lung infiltrates/bibasilar atelectasis Patient denies any fever or chills; started on IV Unasyn, will continue same Repeat chest x-ray in a.m. Encourage use of incentive spirometer 5. Hyperkalemia, likely secondary to #3, potassium is 5.8 Will repeat BMP 6. Dysphagia, new onset, patient with history of CVA about a year ago We will consult speech therapy 7. Type II DM, complicated by peripheral neuropathy, insulin-dependent, also on metformin Hold metformin, continue home insulin regimen as well as insulin sliding scale with blood glucose checks 8. Recent CVA/hyperlipidemia/sleep apnea, continue on aspirin, Plavix and statin 9. Hypomagnesemia, creatinine 1.8, replaced magnesium 1 g x 1 10. DVT PPx- Heparin SC I discussed and explained in details the various types of CODE STATUS-full code, DNR CCA, DNR CC. Patient chose to be DNR CCA, no intubation. He does not want aggressive cardiopulmonary resuscitation in the event of an arrest. Time spent discussing CODE STATUS 18 minutes Charges/Coding Visit Charges Inpatient E&M: 15583 Init Hosp L3 Procedures Hospitalists Procedures: 13687 Advncd Care Plan 30 Min
[2022-02-16 17:56] LABS: Troponin-I HS 8 pg/mL (3.0-78.0)
--- NOTE | 2022-02-16 19:14 | PCM.CONS.C ---
Assessment & Plan Assessment/Plan (1) Bradycardia: PLAN: The patient has a history of bradycardia. It appears his medicines have been adjusted over time to try and compensate for this. Today he presents with what appeared to be a junctional bradycardia. There were concerns at this was symptomatic leading to his hypotension and his aforementioned symptoms. This may be related to inadvertent increase in his Catapres/clonidine therapy. At the present time his cardiac rhythm appears to be an underlying sinus bradycardia. His cardiac enzymes have been negative. His ECG demonstrated no new acute ECG changes. His rate limiting medications are being held. He does appear to be symptomatically and hemodynamically improved at this time. He will continue to be monitored. Going forward he may need readjustment of his medications to minimize the potential for medication induced bradycardia. In the interim he will be monitored for any other concerns that may be related to this event. (2) Ventricular tachycardia seen on sand mixer: PLAN: The patient has a history of underlying ventricular tachycardia noted on a previous outpatient ambulatory cardiac rhythm monitor. He has been evaluated for this in the past. At the moment he will will continue to be monitored for any obvious recurrence of any ventricular dysrhythmia that may be a contributing factor to today's event. (3) Essential hypertension: PLAN: The patient states he has a history of hypertension which is required multiple physicians to assist in his evaluation and care. He is undergone noninvasive studies as noted which also include renal artery duplex study which reportedly did not appear to demonstrate hemodynamically significant renal artery stenosis. His medications may need to be adjusted taking into consideration the need to avoid increasing his medications that could adversely affect his cardiac rate and bring out additional bradycardia. (4) Hyperlipidemia: PLAN: He should continue risk factor evaluation care as deemed appropriate. Addt'l Comments The patient's case has been discussed and reviewed with the patient and with the [facility] emergency department physician-Dr. Alonzo. This note was generated using a voice recognition system and there may be incorrect words, spelling or punctuation that were not noted when reviewing the office note prior to saving. HPI Consult Data Date of Consult: 02/16/22 HPI Narrative HPI Narrative: SHAISTA CLOUD, is a 81 year old white male who presents cardiovascular consultation based upon concerns of symptomatic bradycardia , hypotension, possible near syncope, superimposed upon a history of bradycardia, hyperlipidemia, hypertension, diabetes mellitus, CVA, and renal artery stenosis. The patient was attending a stroke seminar today on the [facility] medical reno. After the seminar, while transferring from his wheelchair to his automobile, he states that he felt like he became rigid. Apparently, according to the [facility] medical records his spouse stated that he appeared to be staring off . She also reported that he did appear to be rigid . A rapid response team alert was called and the patient was subsequently transported to the [facility] emergency department. There he was found to have evidence of a underlying junctional appearing bradycardia as well as being reported as hypotensive. He was treated with medical management which included IV atropine and IV fluids. He was noted to have improvement in his cardiovascular status. He was subsequently placed in the ICU for further evaluation and care. The patient states that he does not recall having any concerning chest discomfort or difficulty breathing. He does not recall having any obvious sensation of palpitation. He does not believe that he totally lost consciousness. He notes at home he has had no obvious orthopnea or PND. He does have an element of chronic bilateral lower extremity ankle pitting edema. He admits there is been multiple changes with his medications between multiple physicians. He states that these changes may have led to an inadvertent increase of his Catapres/clonidine therapy. 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 At the moment in the ICU he appears to be resting comfortably. He states he is feeling fine at this time. It is noted that his heart rate has improved from what appeared to be a junctional bradycardia with ventricular rates between 30 and 40 bpm to now a sinus bradycardia with ventricular rate of approximately 50 bpm. His blood pressure has also improved. [facility] Medical History Absent pedal pulses Acute left-sided muscle weakness Depression Dysphagia Essential hypertension Facial droop due to acute stroke History of CVA (cerebrovascular accident) (12/2020) Hydrocele in adult Hyperlipidemia Normocytic normochromic anemia Osteoarthritis Peripheral vascular occlusive disease Proteinuria due to type 2 diabetes mellitus Recurrent inguinal hernia of right side without obstruction or gangrene Restless legs Right pontine CVA Right renal artery stenosis Skin lesion of face Type 2 diabetes mellitus Home Medications multivitamin,[id number] (Complete Multivitamin tablet) 1 tab PO QDAY supplement 03/03/17 [History Last Taken 02/16/22] aspirin 81 mg chewable tablet 81 mg PO BREAKFAST heart health 01/02/21 [History Last Taken 02/16/22] Arthritis Pain Compound 0 click topical BID ##0 01/27/21 [Rx Last Taken Unknown] latanoprost 0.005 % eye drops 1 drp EACH EYE HS #0 mL 01/27/21 [Rx Last Taken 02/15/22] Handicap Placard #1 ea 02/12/21 [Rx Last Taken Unknown] gabapentin 100 mg capsule 100 mg PO BID #40 caps 02/26/21 [Rx Last Taken 02/15/22] gabapentin 300 mg capsule 300 mg PO 2100 #20 caps 02/26/21 [Rx Last Taken 02/15/22] hydrochlorothiazide 25 mg tablet 25 mg PO DAILY awaiting mail in RX #30 tabs 05/19/21 [Rx Last Taken 02/16/22] pen needle, diabetic 32 gauge x 5/32 (BD Sanaz 2nd Gen Pen Needle) #50 ea 06/02/21 [Rx Last Taken Unknown] doxazosin 8 mg tablet 8 mg PO QHS #90 tabs 09/29/21 [Rx Last Taken 02/15/22] pramipexole 0.125 mg tablet 0.125 mg PO QHS #90 tabs 10/13/21 [Rx Last Taken 02/15/22] spironolactone 50 mg tablet 50 mg PO DAILY #90 tabs 11/18/21 [Rx Last Taken 02/16/22] carvedilol 25 mg tablet 25 mg PO BID #180 tabs 01/06/22 [Rx Last Taken 02/16/22] clopidogrel 75 mg tablet (Plavix) 75 mg PO DAILY #90 tabs 01/06/22 [Rx Last Taken 02/16/22] ezetimibe 10 mg tablet (Zetia) 10 mg PO DAILY #90 tabs 01/06/22 [Rx Last Taken 02/15/22] sertraline 50 mg tablet 50 mg PO DAILY #90 tabs 01/06/22 [Rx Last Taken 02/16/22] nifedipine 30 mg tablet,extended release 24 hr 30 mg PO BID #90 tabs 02/15/22 [Rx Last Taken 02/16/22] clonidine HCl 0.1 mg tablet 0.4 mg PO BID Elevated Blood pressure 02/16/22 [History Last Taken 02/16/22] insulin glargine 100 unit/mL (3 mL) subcutaneous pen (Basaglar KwikPen U-100 Insulin) 14 unit subcut DAILY Diabetes 02/16/22 [History Last Taken 02/16/22] metformin 1,000 mg tablet 1,000 mg PO DINNER 02/16/22 [History Last Taken 02/15/22] metformin 500 mg tablet 500 mg PO DAILY DIABETES 02/16/22 [History Last Taken 02/16/22] valsartan 320 mg tablet 160 mg PO QHS BP 02/16/22 [History Last Taken 02/15/22] Allergy/AdvReac Type Severity Reaction Status Date / Time meloxicam [From Mobic] Allergy Intermediate itching Verified 02/16/22 14:25 pravastatin [From Pravachol] AdvReac Mild myalgia Verified 02/16/22 14:25 cholestyramine AdvReac hypoglycemi Verified 02/16/22 14:25 a Family History Mother Hypertension Cancer Father Heart disease Diabetes Surgical History History of cataract surgery History of herniorrhaphy History of lumbar laminectomy History of stent insertion of renal artery (08/05/21) Status post laser cataract surgery of left eye Social History household members: spouse and other details: Abigail is his 's name housing: house number of children: 2 current occupational status: retired and other details: worked for [employer] prior to retiring leisure activities: other Smoking Status: Never smoker Electronic Cigarette Use: not used alcohol intake: former substance use type: does not use what type of physical activity do you participate in: walking frequency: 1-2 times per week ROS Constitutional Constitutional: Reports as per HPI Eyes Eyes: Reports as per HPI ENT HEENT: Reports as per HPI Cardiovascular Cardiovascular: Reports as per HPI Respiratory/Chest Respiratory/Chest: Reports as per HPI Gastrointestinal Gastrointestinal: Reports as per HPI Genitourinary Genitourinary: Reports as per HPI Musculoskeletal Musculoskeletal: Reports as per HPI Integumentary Integumentary: Reports as per HPI Neurologic Neurologic: Reports as per HPI Psychiatric Psychiatric: Reports as per HPI Physical Exam Const alert, oriented x3 and no apparent distress Orientation / Consciousness: awake HEENT normocephalic, head/scalp atraumatic and hearing grossly normal bilaterally Eyes PERRL, EOMs intact bilaterally, conjunctivae normal and no scleral icterus Neck full ROM, supple and no JVD Carotids: normal carotid upstroke Chest inspection of chest normal Resp normal respiratory effort and clear to auscultation bilaterally Cardio regular rhythm, S1 normal heart sound and S2 normal heart sound Rate: bradycardia GI normal to inspection, nondistended, normoactive bowel sounds Extremity General Extremity: edema bilateral lower extremity Details: mild Skin no rashes or lesions noted Risk Stratification Risk Stratification Applicable: No Procedure Criteria Type of Procedure Procedure Type: Elective Elective Risks - COVID COVID Risk Discussion: The surgeon/proceduralist and patient have discussed in detail the risk of exposure to and/or potential harm posed by the COVID-19 virus with having a surgery/procedure at this time versus the risk of delaying the surgery/procedure. It is not possible to know either the risk of delaying the surgery or procedure or chance of getting an infection with perfect accuracy, but a joint decision was made between the patient and the surgeon/proceduralist to proceed at this time with the scheduled surgery/procedure as indicated on the consent form. Objective Data Vital Signs: Vital Signs Temp Pulse Resp BP Pulse Ox O2 Del Method 98.0 F 49 L 15 146/60 H 95 Room Air 02/16/22 18:15 02/16/22 19:00 02/16/22 19:00 02/16/22 19:00 02/16/22 19:00 02/16/22 19:00 Oxygen Delivery Method Room Air Weight: 186 lb 1.122 oz Body Mass Index (BMI) 27.4 Intake & Output: Intake and Output for Last 24 Hours 02/14/22 02/15/22 02/16/22 23:59 23:59 23:59 Intake Total 250 / 250 Balance 250 / 250 Lab / Micro Data Result Diagrams: 02/16/22 14:55 02/16/22 14:55 Labs: Laboratory Results - last 24 hr 02/16/22 14:55: WBC 7.4, RBC 3.32 L, Hgb 10.0 L, Hct 31.1 L, MCV 93.7, MCH 30.1, MCHC 32.2, RDW Std Deviation 49.1 H, RDW Coeff of Cait 14.3, Plt Count 234, MPV 10.9, Immature Gran % (Auto) 0.400, Neut % (Auto) 66.3, Lymph % (Auto) 17.6 L, Randolph % (Auto) 9.9, Eos % (Auto) 4.9, Baso % (Auto) 0.9, Absolute Neuts (auto) 4.9, Absolute Lymphs (auto) 1.30, Nucleated RBC % 0 02/16/22 14:55: Sodium 137, Potassium 5.8 H, Chloride 106, Carbon Dioxide 23.0, Anion Gap 8, BUN 46 H, Creatinine 2.34 H, Estim Creat Clear Calc 25.92, Est GFR (MDRD) Af Amer 34 L, Est GFR (MDRD) Non-Af 29 L, BUN/Creatinine Ratio 19.7, Glucose 123 H, Calcium 9.3, Magnesium 1.8, Troponin I High Sens 8, TSH 2.51 02/16/22 14:55: Blood Type O POSITIVE, Antibody Screen NEGATIVE 02/16/22 14:55: PT 14.5, INR 1.2 02/16/22 14:55: B-Natriuretic Peptide 389.9 H 02/16/22 17:16: Troponin I High Sens 8 Micro: Microbiology 02/16/22 15:15 Stool Stool Occult Blood (DAX) - Final Rhythm Strip Rhythm Strip: Bradycardia Rate: 36 Ectopy: None Cardiology Labs/Tests 02/16/22 14:55: WBC 7.4, RBC 3.32 L, Hgb 10.0 L, Hct 31.1 L, MCV 93.7, MCH 30.1, MCHC 32.2, Plt Count 234, MPV 10.9, Immature Gran % (Auto) 0.400, Neut % (Auto) 66.3, Lymph % (Auto) 17.6 L, Randolph % (Auto) 9.9, Eos % (Auto) 4.9, Baso % (Auto) 0.9, Absolute Neuts (auto) 4.9, Nucleated RBC % 0 02/16/22 14:55: Sodium 137, Potassium 5.8 H, Chloride 106, Carbon Dioxide 23.0, Anion Gap 8, BUN 46 H, Creatinine 2.34 H, Est GFR (MDRD) Af Amer 34 L, Est GFR (MDRD) Non-Af 29 L, BUN/Creatinine Ratio 19.7, Glucose 123 H, Calcium 9.3, Magnesium 1.8 02/16/22 14:55: PT 14.5, INR 1.2 02/16/22 14:55: B-Natriuretic Peptide 389.9 H Rhythm: EKG: ECHOCARDIOGRAM 12/31/20 Interpretation Summary Normal LV size. Left ventricular systolic function is normal. The estimated ejection fraction is 65 %. There is moderate mitral annular calcification. Bubble contrast study negative for right to left interatrial shunt. Stage 1 diastolic dysfunction. Sigmoid septum. Contrast injection was performed. Holter monitor: 10-15-2021 Sinus rhythm/sinus bradycardia Average heart rate of 50 bpm Rare PACs/1 atrial couplet Rare PVCs No narrow or wide complex runs No prolonged pauses 30 DAY EVENT MONITOR 02/20/2021 - 03/14/2021 Summary: The patient's monitoring period was 02/20/2021 - 03/14/2021. Baseline sample showed Sinus Rhythm with a heart rate of 62.0 bpm. There were 0 critical, 0 serious, and 4 stable events that occurred. The report analysis of the critical, serious, stable and manually triggered events are listed below. Automatically Detected Events: 1 Stable: Sinus Rhythm 1 Stable: Sinus Bradycardia, Sinus Rhythm w/Run of V-Tach (8 beats) 1 Stable: Sinus Bradycardia w/Run of V-Tach (6 beats)/Artifact Maximum HR? 112 BPM on 02/20 at 09:00 PM Minimum HR? 49 BPM on 02/24 at 11:45 PM Average HR? 61 BPM Pauses > 3 Seconds 0 Atrial Fib - None Detected Carotid Duplex Ultrasound 10/20/2021: Interpretation Summary Mild (<50%) stenosis right extracranial internal carotid. Mild (<50%) stenosis left extracranial internal carotid. Flow within the vertebral arteries is antegrade bilaterally. Renal Artery Duplex Ultrasound? 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 Ankle Brachial Index 03/10/21 Interpretation Summary Moderately severe right lower extremity arterial occlusive disease based upon ankle-brachial indices however Doppler waveforms for the right posterior tibial artery are monophasic and absent for the dorsalis pedis suggesting a more severe level of disease. Right digital brachial index of 0.38 is abnormal ? Moderately severe left lower extremity arterial occlusive disease based upon ankle brachial indices however the left dorsalis pedis and posterior tibial Doppler waveforms are both monophasic suggesting more severe level disease. The left digital brachial index is abnormal at 0.39 Radiography Diagnostic Testing: Radiology Impression Chest X-Ray 02/16/22 15:50 IMPRESSION: Bibasilar atelectasis and right lower lung infiltrates. Electronically Signed: Angel Kuo MD at 16:47 EST ,
[2022-02-16 19:23] LABS: Lactic Acid 1.3 mmol/L (0.4-1.9)
--- NOTE | 2022-02-16 19:34 | ECHOD_ITS ---
Reason For Study: SYNCOPE Procedure This was a 2D Doppler, Color Flow transthoracic echocardiogram. Exam performed portable in ICU/CCU. Left Ventricle Normal LV size. Left ventricular systolic function is normal. The estimated ejection fraction is 65 %. Stage 2 diastolic dysfunction. No regional wall motion abnormalities noted. Right Ventricle Normal RV size. Normal systolic function. Atria The left atrium is mildly enlarged. Normal right atrium. No doppler evidence for ASD. Mitral Valve There is moderate to severe mitral annular calcification. Extension of the mitral annular calcification on the base of the posterior mitral valve leaflet. Mild mitral valve stenosis. Mild (1+) mitral valve insufficiency. Tricuspid Valve Normal tricuspid valve. Mild tricuspid valve insufficiency. Right ventricular systolic pressure estimated to be 55 mmHg. Aortic Valve Trisinus/trileaflet aortic valve. Mild diffuse aortic valve thickening. Moderate focal aortic valve calcification. Mild aortic stenosis. Pulmonic Valve The pulmonic valve is not well visualized. Great Vessels Normal sized aortic root. Pericardium/Pleural No pericardial effusion. MMode/2D Measurements & Calculations LVIDd: 4.9 cm IVSd: 1.2 cm LVOT diam: 1.8 cm LVIDs: 3.3 cm LVPWd: 1.4 cm LVOT area: 2.6 cm2 RVDd: 3.4 cm FS: 33.1 % Ao root diam: 3.2 cm LAV(MOD-bp): 71.9 ml LVAd ap4: 27.9 cm2 LAV(MOD-bp) Indexed: 35.7 ml/m2 LVLd ap4: 8.0 cm LAV(MOD-sp2): 69.4 ml EDV(MOD-sp4): 82.1 ml LAV(MOD-sp4): 70.1 ml EDV(sp4-el): 82.5 ml LVAs ap4: 12.0 cm2 LVLs ap4: 6.1 cm ESV(MOD-sp4): 22.1 ml ESV(sp4-el): 20.1 ml EF(MOD-sp4): 73.1 % EF(sp4-el): 75.7 % SV(MOD-sp4): 60.0 ml SV(sp4-el): 62.5 ml LA A4 area: 22.4 cm2 LA dimension(2D): 4.1 cm RA A4 area: 19.9 cm2 Time Measurements MV dec time: 0.16 sec Doppler Measurements & Calculations MV E max joce: 168.0 cm/sec Lat Peak E' Joce: 7.9 cm/sec Med Peak E' Joce: 6.4 cm/sec MV A max joce: 134.6 cm/sec E/E' lat: 21.4 E/E' med: 26.2 MV E/A: 1.2 MV V2 max: 166.0 cm/sec Ao V2 max: 169.8 cm/sec MV max P.0 mmHg MV dec slope: 1075 cm/sec2 Ao max P.5 mmHg MV V2 mean: 87.7 cm/sec Ao V2 mean: 110.4 cm/sec MV mean P.8 mmHg Ao mean P.8 mmHg MV V2 VTI: 52.5 cm Ao V2 VTI: 42.6 cm AV (velocity ratio): 0.67 MVA(VTI): 1.4 cm2 JAMIE(I,D): 1.8 cm2 JAMIE(V,D): 1.6 cm2 LV V1 max: 102.3 cm/sec SV(LVOT): 75.7 ml PA V2 max: 87.2 cm/sec LV V1 max P.2 mmHg PA V2 mean: 63.9 cm/sec LV V1 mean P.6 mmHg LV V1 mean: 75.9 cm/sec LV V1 VTI: 28.6 cm TR max joce: 358.9 cm/sec TR max P.6 mmHg ECHO/Echo Complete Interpretation Summary Left ventricular systolic function is normal. The estimated ejection fraction is 65 %. The left atrium is mildly enlarged. There is moderate to severe mitral annular calcification. Extension of the mitral annular calcification on the base of the posterior mitr al valve leaflet. Mild mitral valve stenosis. Mild (1+) mitral valve insufficiency. Mild tricuspid valve insufficiency. Mild aortic stenosis. Right ventricular systolic pressure estimated to be 55 mmHg c/w pulmonary hyper tension. Stage 2 diastolic dysfunction. Ordering Physician: Karrie Montgomery Referring Physician: Jennifer Watt M.D. Performed By: Ellie Ayala RCS
[2022-02-16] MEDS: Heparin Injection (Vial) 5,000 UNIT/ML VIAL 5000 UNIT SC (22:27)
[2022-02-16] MEDS: Insulin Lispro 100 UNIT/ML INSULN.PEN SC (22:40)
[2022-02-16 23:05] LABS: Bedside Glucose 152 mg/dL (74-106)
[2022-02-17] VITALS (57 sets, daily range): BP systolic 138–220; BP diastolic 52–117; PULSE 51–77; RESP 12–30; TEMP 36.5–37; O2SAT 86–100
[2022-02-17] MEDS: hydrALAZINE 20 MG/ML Vial 5 MG IV ×2 (03:37→11:55)
[2022-02-17 03:45] LABS: Absolute Lymphocyte Count 1.63 X10^3/uL (0.83-4.51); Absolute Neutrophil Count 6.1 X10^3/uL (2.0-7.7); Basophil# 0.08 X10^3/uL; Basophil% 0.9 % (0-1); Eosinophil# 0.39 X10^3/uL; Eosinophils% 4.3 % (0-5); Hematocrit 29.1 % (40-54); Hemoglobin 9.6 g/dL (13.0-16.5); Lymphocyte # 1.63 X10^3/ul (0.83-4.51); Lymphocyte % 17.9 % (19-41); Mean Corpuscular Hgb 30.4 pg (27.0-32.0); Mean Corpuscular Volume 92.1 fL (80-94); Mean Platelet Vol. 11.1 fl (6.2-12.0); Monocyte# 0.86 X10^3/uL; Monocyte% 9.5 % (0-10); NRBC Flagged by Analyzer 0 % (0-5); Neutrophil # 6.09 X10^3/uL (2.7-7.7); Platelet Count 261 K/mm3 (150-450); RBC Distribution Width CV 14.3 % (11.6-14.6); RBC Distribution Width SD 48.2 fl (35.1-43.9); Red Blood Count 3.16 M/mm3 (4.6-6.2); White Blood Count 9.1 K/mm3 (4.4-11.0)
[2022-02-17 04:11] LABS: ALB/GLOB Ratio 0.9 RATIO (0.9-2.4); AST(SGOT) 26 U/L (15-37); Alanine Aminotransfer ALT/SGPT 21 U/L (16-61); Albumin, Serum 2.9 g/dL (3.2-5.0); Alkaline Phosphatase 48 U/L (45-117); Anion Gap 5 (5-15); BUN 47 mg/dL (7-18); Calcium,Total 8.7 mg/dL (8.5-10.1); Chloride 108 mmol/L (98-107); Creatinine, Serum 2.04 mg/dL (0.70-1.30); EST Glomerular Filtration Rate 33 mL/min (>60); Est Glom Filt Rate - Afr Amer 40 mL/min (>60); Estimated Creatinine Clearance 27.92 ml/min; Globulin 3.4 g/dL (2.2-4.2); Glucose 111 mg/dL (74-106); Magnesium 2.1 mg/dL (1.6-2.6); Potassium 5.6 mmol/L (3.5-5.1); Protein, Total 6.3 g/dL (6.4-8.2); Sodium Level 139 mmol/L (136-145)
[2022-02-17] MEDS: 0.9% Normal Saline 1,000 ML 150 ML IV ×2 (05:42→12:41)
--- NOTE | 2022-02-17 05:55 | RAD_ITS ---
STUDY: X-RAY CHEST REASON FOR EXAM: Male, 81 years old. Probable pneumonia TECHNIQUE: Single AP portable view of the chest. COMPARISON: Comparison is made with prior study dated 02/16/2022. FINDINGS: EKG electrodes are seen. Stable elevation of the right hemidiaphragm. Patchy infiltrate in the left lower lobe as well as in the right infrahilar region suggests of bilateral pulmonary infiltrates. There is no demonstrated pleural abnormality. Normal size heart. Normal mediastinum and arianne. Normal visualized pulmonary arteries. Normal visualized aortic arch and descending thoracic aorta. Normal visualized thoracic spine. Normal visualized ribs, clavicles, and shoulders. There is no demonstrated abnormality of the visualized soft tissue structures of the upper abdomen. RAD/Chest 1 View (Portable) IMPRESSION: Patchy left lower lobe and right infrahilar infiltrates. Electronically Signed: Micah Murrieta MD at 10:09 [facility] ,
[2022-02-17] MEDS: Heparin Injection (Vial) 5,000 UNIT/ML VIAL 5000 UNIT SC ×3 (06:52→20:08)
--- NOTE | 2022-02-17 07:10 | PCM.PN.CARD ---
Subjective Subjective The patient was seen and evaluated. Appears to be doing better this morning. No complaints. Objective Data Vital Signs: Vital Signs Temp Pulse Resp BP Pulse Ox O2 Del Method O2 Flow Rate 97.7 F L 55 L 14 158/64 H 97 Room Air 4 02/17/22 05:00 02/17/22 07:00 02/17/22 07:00 02/17/22 07:00 02/17/22 07:00 02/17/22 07:00 02/17/22 00:00 FiO2 30 02/17/22 05:38 Oxygen Flow Rate (L/min) 4 Oxygen Delivery Method Room Air Weight: 188 lb 7.924 oz Body Mass Index (BMI) 27.4 Intake & Output: Intake and Output for Last 24 Hours 02/15/22 02/16/22 02/17/22 23:59 23:59 23:59 Intake Total 1347 / 1347 1102 / 1102 Output Total 800 / 800 Balance 1347 / 1347 302 / 302 Lab / Micro Data Result Diagrams: 02/17/22 03:35 02/17/22 03:35 Labs: Laboratory Results - last 24 hr 02/16/22 14:55: WBC 7.4, RBC 3.32 L, Hgb 10.0 L, Hct 31.1 L, MCV 93.7, MCH 30.1, MCHC 32.2, RDW Std Deviation 49.1 H, RDW Coeff of Ciat 14.3, Plt Count 234, MPV 10.9, Immature Gran % (Auto) 0.400, Neut % (Auto) 66.3, Lymph % (Auto) 17.6 L, [place] % (Auto) 9.9, Eos % (Auto) 4.9, Baso % (Auto) 0.9, Absolute Neuts (auto) 4.9, Absolute Lymphs (auto) 1.30, Nucleated RBC % 0 02/16/22 14:55: Sodium 137, Potassium 5.8 H, Chloride 106, Carbon Dioxide 23.0, Anion Gap 8, BUN 46 H, Creatinine 2.34 H, Estim Creat Clear Calc 25.92, Est GFR (MDRD) Af Amer 34 L, Est GFR (MDRD) Non-Af 29 L, BUN/Creatinine Ratio 19.7, Glucose 123 H, Calcium 9.3, Magnesium 1.8, Troponin I High Sens 8, TSH 2.51 02/16/22 14:55: Blood Type O POSITIVE, Antibody Screen NEGATIVE 02/16/22 14:55: PT 14.5, INR 1.2 02/16/22 14:55: B-Natriuretic Peptide 389.9 H 02/16/22 17:16: Troponin I High Sens 8 02/16/22 18:45: Lactic Acid 1.3 02/16/22 22:35: POC Glucose 152 H 02/17/22 03:35: WBC 9.1, RBC 3.16 L, Hgb 9.6 L, Hct 29.1 L, MCV 92.1, MCH 30.4, MCHC 33.0, RDW Std Deviation 48.2 H, RDW Coeff of Cait 14.3, Plt Count 261, MPV 11.1, Immature Gran % (Auto) 0.400, Neut % (Auto) 67.0, Lymph % (Auto) 17.9 L, [place] % (Auto) 9.5, Eos % (Auto) 4.3, Baso % (Auto) 0.9, Absolute Neuts (auto) 6.1, Absolute Lymphs (auto) 1.63, Nucleated RBC % 0 02/17/22 03:35: Sodium 139, Potassium 5.6 H, Chloride 108 H, Carbon Dioxide 26.0, Anion Gap 5, BUN 47 H, Creatinine 2.04 H, Estim Creat Clear Calc 27.92, Est GFR (MDRD) Af Amer 40 L, Est GFR (MDRD) Non-Af 33 L, BUN/Creatinine Ratio 23.0 H, Glucose 111 H, Calcium 8.7, Magnesium 2.1, Total Bilirubin 0.30, AST 26, ALT 21, Alkaline Phosphatase 48, Total Protein 6.3 L, Albumin 2.9 L, Globulin 3.4, Albumin/Globulin Ratio 0.9 Micro: Microbiology 02/16/22 15:15 Stool Stool Occult Blood (DAX) - Final Rhythm Strip Rhythm Strip: Bradycardia Rate: 36 Ectopy: None Cardiology Labs/Tests 02/16/22 14:55: WBC 7.4, RBC 3.32 L, Hgb 10.0 L, Hct 31.1 L, MCV 93.7, MCH 30.1, MCHC 32.2, Plt Count 234, MPV 10.9, Immature Gran % (Auto) 0.400, Neut % (Auto) 66.3, Lymph % (Auto) 17.6 L, [place] % (Auto) 9.9, Eos % (Auto) 4.9, Baso % (Auto) 0.9, Absolute Neuts (auto) 4.9, Nucleated RBC % 0 02/16/22 14:55: Sodium 137, Potassium 5.8 H, Chloride 106, Carbon Dioxide 23.0, Anion Gap 8, BUN 46 H, Creatinine 2.34 H, Est GFR (MDRD) Af Amer 34 L, Est GFR (MDRD) Non-Af 29 L, BUN/Creatinine Ratio 19.7, Glucose 123 H, Calcium 9.3, Magnesium 1.8 02/16/22 14:55: PT 14.5, INR 1.2 02/16/22 14:55: B-Natriuretic Peptide 389.9 H 02/16/22 18:45: Lactic Acid 1.3 02/17/22 03:35: WBC 9.1, RBC 3.16 L, Hgb 9.6 L, Hct 29.1 L, MCV 92.1, MCH 30.4, MCHC 33.0, Plt Count 261, MPV 11.1, Immature Gran % (Auto) 0.400, Neut % (Auto) 67.0, Lymph % (Auto) 17.9 L, Cloud % (Auto) 9.5, Eos % (Auto) 4.3, Baso % (Auto) 0.9, Absolute Neuts (auto) 6.1, Nucleated RBC % 0 02/17/22 03:35: Sodium 139, Potassium 5.6 H, Chloride 108 H, Carbon Dioxide 26.0, Anion Gap 5, BUN 47 H, Creatinine 2.04 H, Est GFR (MDRD) Af Amer 40 L, Est GFR (MDRD) Non-Af 33 L, BUN/Creatinine Ratio 23.0 H, Glucose 111 H, Calcium 8.7, Magnesium 2.1, Total Bilirubin 0.30 Rhythm: EKG: ECHO: Stress Test: Cardiac Cath: PCI: CT Surgery: Holter monitor: EPS: PPM: CXR: Chest CT Scan: Radiography Diagnostic Testing: Radiology Impression Chest X-Ray 02/16/22 15:50 IMPRESSION: Bibasilar atelectasis and right lower lung infiltrates. Electronically Signed: Angel Kuo MD at 16:47 EST , Physical Exam Const alert, oriented x3 and no apparent distress Orientation / Consciousness: awake HEENT normocephalic, head/scalp atraumatic and hearing grossly normal bilaterally Eyes PERRL, EOMs intact bilaterally, conjunctivae normal and no scleral icterus Neck full ROM, supple and no JVD Carotids: normal carotid upstroke Chest inspection of chest normal Resp normal respiratory effort and clear to auscultation bilaterally Cardio regular rhythm, S1 normal heart sound and S2 normal heart sound Rate: bradycardia GI normal to inspection, nondistended, normoactive bowel sounds Extremity General Extremity: edema bilateral lower extremity Details: mild Skin no rashes or lesions noted Assessment & Plan Assessment/Plan (1) Bradycardia: PLAN: The patient has a history of bradycardia. His medications have been adjusted. It appears that his heart rate is better this morning and he is in sinus rhythm. This may have been due to the clonidine therapy together with the carvedilol. We will hold these temporarily and see how he progresses. (2) Ventricular tachycardia seen on cardiac cath lab technologist: PLAN: The patient has a history of underlying ventricular tachycardia noted on a previous outpatient ambulatory cardiac rhythm monitor. He has had no evidence since this admission. (3) Essential hypertension: PLAN: The patient states he has a history of hypertension. His medications will be adjusted as appropriate. (4) Hyperlipidemia: PLAN: He should continue risk factor evaluation care as deemed appropriate.
--- NOTE | 2022-02-17 08:01 | PCM.PN.HOSP ---
Subjective Subjective Reports feeling fair today. No chest pain or shortness of breath. Does have problems with restless legs and is having a hard time keeping them still during exam. Does have some swelling his legs which has been present for several months. Objective Data Objective Data Vital Signs: Vital Signs Temp Pulse Resp BP Pulse Ox O2 Del Method O2 Flow Rate 97.7 F L 55 L 14 158/64 H 96 Nasal Cannula 6 02/17/22 05:00 02/17/22 07:00 02/17/22 07:00 02/17/22 07:00 02/17/22 07:56 02/17/22 07:56 02/17/22 07:56 FiO2 30 02/17/22 05:38 Oxygen Flow Rate (L/min) 6 Oxygen Delivery Method Nasal Cannula Weight: 85.5 kg Body Mass Index (BMI) 27.4 Intake & Output: Intake and Output for Last 24 Hours 02/15/22 02/16/22 02/17/22 23:59 23:59 23:59 Intake Total 1347 / 1347 1102 / 1102 Output Total 800 / 800 Balance 1347 / 1347 302 / 302 Lab / Micro Data Result Diagrams: 02/17/22 03:35 02/17/22 03:35 Labs: Laboratory Results - last 24 hr 02/16/22 14:55: WBC 7.4, RBC 3.32 L, Hgb 10.0 L, Hct 31.1 L, MCV 93.7, MCH 30.1, MCHC 32.2, RDW Std Deviation 49.1 H, RDW Coeff of Cait 14.3, Plt Count 234, MPV 10.9, Immature Gran % (Auto) 0.400, Neut % (Auto) 66.3, Lymph % (Auto) 17.6 L, [place] % (Auto) 9.9, Eos % (Auto) 4.9, Baso % (Auto) 0.9, Absolute Neuts (auto) 4.9, Absolute Lymphs (auto) 1.30, Nucleated RBC % 0 02/16/22 14:55: Sodium 137, Potassium 5.8 H, Chloride 106, Carbon Dioxide 23.0, Anion Gap 8, BUN 46 H, Creatinine 2.34 H, Estim Creat Clear Calc 25.92, Est GFR (MDRD) Af Amer 34 L, Est GFR (MDRD) Non-Af 29 L, BUN/Creatinine Ratio 19.7, Glucose 123 H, Calcium 9.3, Magnesium 1.8, Troponin I High Sens 8, TSH 2.51 02/16/22 14:55: Blood Type O POSITIVE, Antibody Screen NEGATIVE 02/16/22 14:55: PT 14.5, INR 1.2 02/16/22 14:55: B-Natriuretic Peptide 389.9 H 02/16/22 17:16: Troponin I High Sens 8 02/16/22 18:45: Lactic Acid 1.3 02/16/22 22:35: POC Glucose 152 H 02/17/22 03:35: WBC 9.1, RBC 3.16 L, Hgb 9.6 L, Hct 29.1 L, MCV 92.1, MCH 30.4, MCHC 33.0, RDW Std Deviation 48.2 H, RDW Coeff of Cait 14.3, Plt Count 261, MPV 11.1, Immature Gran % (Auto) 0.400, Neut % (Auto) 67.0, Lymph % (Auto) 17.9 L, [place] % (Auto) 9.5, Eos % (Auto) 4.3, Baso % (Auto) 0.9, Absolute Neuts (auto) 6.1, Absolute Lymphs (auto) 1.63, Nucleated RBC % 0 02/17/22 03:35: Sodium 139, Potassium 5.6 H, Chloride 108 H, Carbon Dioxide 26.0, Anion Gap 5, BUN 47 H, Creatinine 2.04 H, Estim Creat Clear Calc 27.92, Est GFR (MDRD) Af Amer 40 L, Est GFR (MDRD) Non-Af 33 L, BUN/Creatinine Ratio 23.0 H, Glucose 111 H, Calcium 8.7, Magnesium 2.1, Total Bilirubin 0.30, AST 26, ALT 21, Alkaline Phosphatase 48, Total Protein 6.3 L, Albumin 2.9 L, Globulin 3.4, Albumin/Globulin Ratio 0.9 Micro: Microbiology 02/16/22 15:15 Stool Stool Occult Blood (DAX) - Final Radiography Diagnostic Testing: Radiology Impression Chest X-Ray 02/16/22 15:50 IMPRESSION: Bibasilar atelectasis and right lower lung infiltrates. Electronically Signed: Angel Kuo MD at 16:47 EST , Rhythm Strip Rhythm Strip: Bradycardia Rate: 36 Ectopy: None Physical Exam Const alert and no apparent distress Constitutional Narrative: Oriented HEENT normocephalic and head/scalp atraumatic Eyes Eyes Narrative: EOM grossly intact, anicteric Neck supple Resp normal respiratory effort and clear to auscultation bilaterally Cardio regular rate and regular rhythm GI soft to palpation, non-tender and non-distended Extremity Extremity Narrative: 3+ bilateral lower extremity pitting edema, constantly moving legs left greater than right Neuro moves all extremities Neuro Narrative: No overt focal deficits appreciated Psych Psych Narrative: Cooperative Assessment & Plan Assessment/Plan (1) NABILA (acute kidney injury): PLAN: Plan 1. Acute syncope, multifactorial secondary to hypotension/bradycardia/severe dehydration/acute kidney injury Will treat underlying current issues 2D echo, check orthostatic vitals 02/17/2022: Doing better to today off of clonidine and carvedilol. Continue to hold and monitor. Echo pending 2. Acute hypotension/bradycardia likely secondary to overmedication Patient stated that there was a recent medication changes done over the phone by his primary care doctor He apparently is taking clonidine 0.4 mg twice daily, Coreg, doxazosin, hydrochlorothiazide, spironolactone, valsartan, nifedipine Patient came in with significant bradycardia, heart rate of 35; EKG shows junctional rhythm. TSH is 2.51 Patient received 2 doses of atropine; Will consult cardiology Hold all antihypertensives, continue on IV fluid Trend troponins, follow-up on 2D echo We will obtain an accurate med list from patient's physician 02/17/2022: Blood pressure significantly improved and he was actually hypertensive overnight. Received hydralazine x1 and is now on amlodipine and hydrochlorothiazide. Cardiology following. Heart rate has consistently been in the 50s overnight 3. Acute kidney injury on CKD IIIa, likely prerenal from dehydration/medication side effect Patient's admitting creatinine is 2.34; previous creatinine was 1.65 Continue to hold blood pressure medications Will continue on IV fluids, trend labs in a.m. 02/17/2022: Creatinine improved slightly, avoid nephrotoxic agents, continue fluids at this time 4. Probable aspiration pneumonia, patient with reported cough whilst eating Chest x-ray with right lower lung infiltrates/bibasilar atelectasis Patient denies any fever or chills; started on IV Unasyn, will continue same Repeat chest x-ray in a.m. Encourage use of incentive spirometer 02/17/2022: On ampicillin sulbactam, a.m. chest x-ray pending 5. Hyperkalemia, likely secondary to #3, potassium is 5.8 Will repeat BMP 02/17/2022: 5.6 today but this is hemolyzed, suspect closer to normal range at this time 6. Dysphagia, new onset, patient with history of CVA about a year ago We will consult speech therapy 7. Type II DM, complicated by peripheral neuropathy, insulin-dependent, also on metformin Hold metformin, continue home insulin regimen as well as insulin sliding scale with blood glucose checks 8. Recent CVA/hyperlipidemia/sleep apnea, continue on aspirin, Plavix and statin 9. Hypomagnesemia, creatinine 1.8, replaced magnesium 1 g x 1 10. DVT PPx- Heparin SC Charges/Coding Visit Charges Inpatient E&M: 74239 Subs Hosp L2
[2022-02-17] MEDS: amLODIPine 10 MG Tablet PO (09:24)
[2022-02-17] MEDS: Clopidogrel Bisulfate 75 MG Tablet PO (09:24)
[2022-02-17] MEDS: Aspirin 81 MG TAB.CHEW PO (09:24)
[2022-02-17] MEDS: hydroCHLOROthiazide 25 MG Tablet PO (09:24)
[2022-02-17 11:31] LABS: Bedside Glucose 119 mg/dL (74-106)
[2022-02-17] MEDS: Gabapentin 100 MG Capsule PO (11:48)
[2022-02-17] MEDS: Sertraline 50 MG Tablet PO (11:48)
--- NOTE | 2022-02-17 12:25 | CASEMGMT ---
RN DARIEL Face to Face with patient for initial transition planning/care coordination assessment. RN CM introduced self and role at [facility]. Patient sitting in chair, alert and oriented, at bedside. Patient willing to participate in assessment and is able to answer all questions appropriately. Care providers, pharmacy, and demographics verified. Patient wishes to discharge home, denies need for home health at this time. Patient states he has no further needs or concerns at this time. CM to follow for discharge planning needs that may arise. PCP: Shukri Specialists: Jazmine, bleach plant operator; Holly, neurologist; Regina, vascular; King, hitch technician Preferred Pharmacy: [facility] Insurance: [employer] [facility] Prescription Benefit: yes Living Will/HPOA: yes, Abigail Thomas LNOK: Living Arrangements: Patient lives with in a single story home with 3 steps and railing to enter the home. Patient states his assists him with his ADLs at home. Transportation: DME/HHC: Patient states he has shower chair, raised toilet, hospial bed, grab bars, wheelchair, bipap, ana walker, and pulse ox at home. Patient states he has had [facility]HC in the past. Disposition Plan: Patient to discharge home with family support and follow-up plans in place. Tish SIBLEY, RN, CM
[2022-02-17] MEDS: Insulin Lispro 100 UNIT/ML INSULN.PEN SC ×3 (12:55→20:58)
[2022-02-17 13:16] LABS: Bedside Glucose 156 mg/dL (74-106)
[2022-02-17] MEDS: Carvedilol 25 MG Tablet PO ×2 (13:22→20:07)
--- NOTE | 2022-02-17 16:43 | PCM.HOSP.N ---
Hospitalist Note Called d/t SPO2 in mid 80's. Fluids stopped, placed on bipap. Ordered 40 IV lasix and CXR. Went to eval pt even prior to lasix being given and he was more comfortable on bipap with sats in mid to upper 90's. Reports he was only SOB for 15 minutes. Crackles at bases. Will nigel
--- NOTE | 2022-02-17 16:45 | RAD_ITS ---
STUDY: X-RAY CHEST REASON FOR EXAM: Male, 81 years old. SOB TECHNIQUE: Portable, upright, AP chest x-ray COMPARISON: 11 hours earlier RAD/Chest 1 View (Portable) IMPRESSION: Improved inflation without significant change in bilateral pulmonary infiltrates. Small left pleural effusion. Electronically Signed: Angel Kuo MD at 17:20 EST ,
[2022-02-17] MEDS: Furosemide 40 MG/4 ML Vial IV (16:49)
[2022-02-17 17:15] LABS: Bedside Glucose 176 mg/dL (74-106)
[2022-02-17] MEDS: hydrALAZINE 20 MG/ML Vial 10 MG IV (17:27)
[2022-02-17] MEDS: Nitroglycerin Infusion 250 ML 6 MG CONT INF (17:35)
[2022-02-17] MEDS: Gabapentin 300 MG Capsule PO (19:45)
[2022-02-17] MEDS: Doxazosin 4 MG Tablet 8 MG PO (20:07)
[2022-02-17 22:16] LABS: Bedside Glucose 176 mg/dL (74-106)
--- NOTE | 2022-02-17 23:46 | CPS ---
POST BIPAP ASSESSMENT NURSING REQUESTED PATIENT BE ATTEMPTED OFF BIPAP IF ABLE TO TOLERATE.
--- NOTE | 2022-02-17 23:48 | CPS ---
PATIENT PLACED ON STANDBY FOR BIPAP AND PLACED ON 6 LPM
[2022-02-18] VITALS (50 sets, daily range): BP systolic 140–186; BP diastolic 52–85; PULSE 63–85; RESP 12–26; TEMP 36.9–37.3; O2SAT 90–100
[2022-02-18 04:03] LABS: Absolute Lymphocyte Count 1.44 X10^3/uL (0.83-4.51); Absolute Neutrophil Count 7.4 X10^3/uL (2.0-7.7); Basophil# 0.05 X10^3/uL; Basophil% 0.5 % (0-1); Eosinophils% 1.9 % (0-5); Hematocrit 28.6 % (40-54); Hemoglobin 9.2 g/dL (13.0-16.5); Lymphocyte # 1.44 X10^3/ul (0.83-4.51); Lymphocyte % 13.9 % (19-41); Mean Corp Hgb Conc 32.2 g/dL (32-36); Mean Corpuscular Hgb 29.5 pg (27.0-32.0); Mean Corpuscular Volume 91.7 fL (80-94); Mean Platelet Vol. 10.4 fl (6.2-12.0); Monocyte# 1.17 X10^3/uL; Monocyte% 11.3 % (0-10); NRBC Flagged by Analyzer 0 % (0-5); Neutrophil # 7.43 X10^3/uL (2.7-7.7); Neutrophil % 71.9 % (47-70); Platelet Count 226 K/mm3 (150-450); RBC Distribution Width CV 14.2 % (11.6-14.6); RBC Distribution Width SD 47.8 fl (35.1-43.9); Red Blood Count 3.12 M/mm3 (4.6-6.2); White Blood Count 10.3 K/mm3 (4.4-11.0)
[2022-02-18 04:20] LABS: ALB/GLOB Ratio 0.9 RATIO (0.9-2.4); AST(SGOT) 8 U/L (15-37); Alanine Aminotransfer ALT/SGPT 17 U/L (16-61); Albumin, Serum 2.9 g/dL (3.2-5.0); Alkaline Phosphatase 47 U/L (45-117); Anion Gap 8 (5-15); BUN 42 mg/dL (7-18); BUN/Creat Ratio 23.2 RATIO (10-20); Calcium,Total 8.7 mg/dL (8.5-10.1); Chloride 109 mmol/L (98-107); Creatinine, Serum 1.81 mg/dL (0.70-1.30); EST Glomerular Filtration Rate 38 mL/min (>60); Est Glom Filt Rate - Afr Amer 46 mL/min (>60); Estimated Creatinine Clearance 31.47 ml/min; Globulin 3.2 g/dL (2.2-4.2); Glucose 140 mg/dL (74-106); Magnesium 1.7 mg/dL (1.6-2.6); Protein, Total 6.1 g/dL (6.4-8.2); Sodium Level 140 mmol/L (136-145)
[2022-02-18] MEDS: hydrALAZINE 20 MG/ML Vial 10 MG IV ×3 (05:09→18:33)
[2022-02-18] MEDS: Heparin Injection (Vial) 5,000 UNIT/ML VIAL 5000 UNIT SC ×3 (05:14→22:01)
--- NOTE | 2022-02-18 07:38 | PCM.PN.CARD ---
Subjective Subjective The patient was seen and evaluated. Appears to be doing better this morning but still requires intermittent aliquots of hydralazine Objective Data Vital Signs: Vital Signs Temp Pulse Resp BP Pulse Ox O2 Del Method O2 Flow Rate 98.6 F 64 20 H 162/72 H 98 Nasal Cannula 6 02/18/22 05:00 02/18/22 07:01 02/18/22 07:00 02/18/22 07:00 02/18/22 07:00 02/18/22 05:00 02/18/22 05:00 FiO2 30 02/18/22 06:20 Oxygen Flow Rate (L/min) 6 Oxygen Delivery Method Nasal Cannula Weight: 180 lb 1.883 oz Body Mass Index (BMI) 27.4 Intake & Output: Intake and Output for Last 24 Hours 02/16/22 02/17/22 02/18/22 23:59 23:59 23:59 Intake Total 1347 / 1347 2931.0 / 2937.0 48 / 48 Output Total 4400 / 4600 875 / 875 Balance 1347 / 1347 -1469.0 / -1663.0 -827 / -827 Lab / Micro Data Result Diagrams: 02/18/22 04:00 02/18/22 04:00 Labs: Laboratory Results - last 24 hr 02/17/22 08:15: POC Glucose 119 H 02/17/22 12:53: POC Glucose 156 H 02/17/22 16:48: POC Glucose 176 H 02/17/22 20:57: POC Glucose 176 H 02/18/22 04:00: WBC 10.3, RBC 3.12 L, Hgb 9.2 L, Hct 28.6 L, MCV 91.7, MCH 29.5, MCHC 32.2, RDW Std Deviation 47.8 H, RDW Coeff of Cait 14.2, Plt Count 226, MPV 10.4, Immature Gran % (Auto) 0.500, Neut % (Auto) 71.9 H, Lymph % (Auto) 13.9 L, [place] % (Auto) 11.3 H, Eos % (Auto) 1.9, Baso % (Auto) 0.5, Absolute Neuts (auto) 7.4, Absolute Lymphs (auto) 1.44, Nucleated RBC % 0 02/18/22 04:00: Sodium 140, Potassium 4.0, Chloride 109 H, Carbon Dioxide 23.0, Anion Gap 8, BUN 42 H, Creatinine 1.81 H, Estim Creat Clear Calc 31.47, Est GFR (MDRD) Af Amer 46 L, Est GFR (MDRD) Non-Af 38 L, BUN/Creatinine Ratio 23.2 H, Glucose 140 H, Calcium 8.7, Magnesium 1.7, Total Bilirubin 0.60, AST 8 L, ALT 17, Alkaline Phosphatase 47, Total Protein 6.1 L, Albumin 2.9 L, Globulin 3.2, Albumin/Globulin Ratio 0.9 Rhythm Strip Rhythm Strip: Bradycardia Rate: 36 Ectopy: None Cardiology Labs/Tests 02/18/22 04:00: WBC 10.3, RBC 3.12 L, Hgb 9.2 L, Hct 28.6 L, MCV 91.7, MCH 29.5, MCHC 32.2, Plt Count 226, MPV 10.4, Immature Gran % (Auto) 0.500, Neut % (Auto) 71.9 H, Lymph % (Auto) 13.9 L, [place] % (Auto) 11.3 H, Eos % (Auto) 1.9, Baso % (Auto) 0.5, Absolute Neuts (auto) 7.4, Nucleated RBC % 0 02/18/22 04:00: Sodium 140, Potassium 4.0, Chloride 109 H, Carbon Dioxide 23.0, Anion Gap 8, BUN 42 H, Creatinine 1.81 H, Est GFR (MDRD) Af Amer 46 L, Est GFR (MDRD) Non-Af 38 L, BUN/Creatinine Ratio 23.2 H, Glucose 140 H, Calcium 8.7, Magnesium 1.7, Total Bilirubin 0.60 Rhythm: EKG: ECHO: Stress Test: Cardiac Cath: PCI: CT Surgery: Holter monitor: EPS: PPM: CXR: Chest CT Scan: Radiography Diagnostic Testing: Radiology Impression Echocardiogram 02/16/22 19:34 Interpretation Summary Left ventricular systolic function is normal. The estimated ejection fraction is 65 %. The left atrium is mildly enlarged. There is moderate to severe mitral annular calcification. Extension of the mitral annular calcification on the base of the posterior mitral valve leaflet. Mild mitral valve stenosis. Mild (1+) mitral valve insufficiency. Mild tricuspid valve insufficiency. Mild aortic stenosis. Right ventricular systolic pressure estimated to be 55 mmHg c/w pulmonary hypertension. Stage 2 diastolic dysfunction. Ordering Physician: Karrie Montgomery Referring Physician: Jennifer Watt M.D. Performed By: Ellie Ayala RCS Chest X-Ray 02/17/22 05:55 IMPRESSION: Patchy left lower lobe and right infrahilar infiltrates. Electronically Signed: Micah Murrieta MD at 10:09 EST , Chest X-Ray 02/17/22 16:45 IMPRESSION: Improved inflation without significant change in bilateral pulmonary infiltrates. Small left pleural effusion. Electronically Signed: Angel Kuo MD at 17:20 EST , Physical Exam Const alert and no apparent distress Constitutional Narrative: Oriented HEENT normocephalic and head/scalp atraumatic Eyes Eyes Narrative: EOM grossly intact, anicteric Neck supple Resp normal respiratory effort and clear to auscultation bilaterally Cardio regular rate and regular rhythm GI soft to palpation, non-tender and non-distended Extremity Extremity Narrative: 3+ bilateral lower extremity pitting edema, constantly moving legs left greater than right Neuro moves all extremities Neuro Narrative: No overt focal deficits appreciated Psych Psych Narrative: Cooperative Assessment & Plan Assessment/Plan (1) Bradycardia: PLAN: The patient has a history of bradycardia. His medications have been adjusted. It appears that his heart rate is better this morning and he is in sinus rhythm. The carvedilol has been resumed and his heart rate is remaining stable. Will not resume clonidine (2) Ventricular tachycardia seen on manager monitoring: PLAN: The patient has a history of underlying ventricular tachycardia noted on a previous outpatient ambulatory cardiac rhythm monitor. He has had no evidence since this admission. (3) Essential hypertension: PLAN: The patient states he has a history of hypertension. His medications will be adjusted as appropriate. He still remains hypertensive and was started on intravenous nitroglycerin yesterday Will be at the carvedilol Add losartan 100 mg a day Discontinue hydrochlorothiazide Continue with hydration Continue with amlodipine His echocardiogram demonstrated preserved left ventricular systolic function (4) Hyperlipidemia: PLAN: He should continue risk factor evaluation care as deemed appropriate.
[2022-02-18] MEDS: amLODIPine 10 MG Tablet PO (08:09)
[2022-02-18] MEDS: Aspirin 81 MG TAB.CHEW PO (08:09)
[2022-02-18] MEDS: Clopidogrel Bisulfate 75 MG Tablet PO (08:09)
[2022-02-18] MEDS: Carvedilol 25 MG Tablet PO ×2 (08:09→20:06)
[2022-02-18] MEDS: Sertraline 50 MG Tablet PO (08:10)
[2022-02-18] MEDS: Gabapentin 100 MG Capsule PO ×2 (08:19→12:36)
[2022-02-18 08:31] LABS: Bedside Glucose 149 mg/dL (74-106)
--- NOTE | 2022-02-18 09:54 | SP.MBSS_ITS ---
Modified Barium Swallow - Patient Information Study Date: 02/18/22 Study Time: 09:00 Direct Billable Minutes: 110 Total Minutes procedure & reportin Diagnosis: Aspiration Pneumonia (J69.0) Referring Physician: Amalia Aguila Reason for Referral: Objectively assess swallow function, risk for aspiration, and determine recommendations for least restrictive diet textures and compensatory strategies to improve safety of swallow. Medical History: Francisco Thomas is a 81 M [address] to [facility] 02/16/2022 after CVA follow-up at the hospital. As he was going home, he became dizzy, slumped backwards, and had poor responsiveness - rapid response was called. Pt was sent to ED, although he was reluctant at first. 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 Cough is nonproductive. Admitting chest x-ray showed bibasilar atelectasis and right lower lung infiltrate. He was admitted for management of hypotension, along with other comorbidities, including suspected aspiration PNA. He was seen by ST 02/17/2022 for BSE and recommended for regular textures / thin liquids - distant supervision. He was additionally recommended for MBSS to assess concern for aspiration due to current aspiration PNA and hx of aspiration of thin liquids. 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 He was seen by ST on inpatient rehab from 01/03/2021-01/27/2021 for dysphagia therapy with MBSS revealing aspiration of thin liquids and recommending Minced and moist textures / Thin liquids. Pt discharged home on this diet and was recommended for ST, which the patient did follow through with. Repeat MBSS completed 02/26/2021 recommended Soft and Bite Size textures (IDDSI Level 6), Thin Liquids; Compensatory Strategies: Small Bites, Small Sips, No Straws, Slow Rate - One bite/sip at a time, Multiple Swallows - Consider use of intermittent double swallows during meals due to mild oral and pharyngeal residues present during study., Sitting upright, Assist with verbal cues to use recommended strategies; Supervision: Assist as needed. Dentition: Natural Teeth Mental Status: WNL Respiratory Status: Oxygenating on 2L/M nasal cannula - Penetration-Aspiration Scale Penetration-Aspiration Scale: OBJECTIVE ASSESSMENT OF SWALLOW FUNCTION (QUANTITATIVE ? PER TRIAL): PENETRATION / ASPIRATION SCALE (DUMONT): 1 = does not enter airway 2 = enters airway/above vocal folds/ejected 3 = enters airway/above vocal folds/not ejected 4 = enters airway/contacts vocal folds/ejected 5 = enters airway/contacts vocal folds/not ejected 6 = enters airway/below vocal folds/ejected 7 = enters airway/below vocal folds/not ejected despite effort 8 = enters airway/below vocal folds/no effort VIDEOFLOROSCOPIC SCALE SCORE (DUMONT): Grade I = aspiration of material that has penetrated into the laryngeal vestibule, intact cough reflex Grade II = aspiration < 10 % of the bolus, intact cough reflex Grade III = aspiration of < 10 % of the bolus, reduced cough reflex or aspiration of > 10 % of the bolus, intact cough reflex Grade IV = aspiration of > 10 % of the bolus, reduced cough reflex - Penetration-Aspiration Scale Score Thin Liquid via teaspoon Result: 1= does not enter airway Thin Liquid via teaspoon Trial 2 Result: 1= does not enter airway Thin Liquid via large single sip from cup Result: 7= enters airways/below vocal folds/not ejected despite effort - delayed, throat clear - ineffective at clearing aspirated contrast Thin Liquid via small single sip from cup Result: 1= does not enter airway [place] Thick Liquid via small single sip from cup Result: 1= does not enter airway [place] Thick Liquid via small single sip from cup Result: 1= does not enter airway Pudding via teaspoon with esophageal screen Result: 1= does not enter airway 1/2 Cookie Result: 1= does not enter airway Thin Liquid via small single sip from cup Trial 2 Result: 2= enter airway/above vocal folds/ejected Thin Liquid via small single sip from cup Effortful swallow Result: 1= does not enter airway - Oral Phase Labial Seal: No Labial Escape Tongue Control During Bolus Hold: Posterior escape of greater than half of bolus Bolus Preparation/Mastication: Slow prolonged chewing/mashing with complete recollection Bolus Transport/Lingual Motion: Slowed tongue motion Oral Residue: Trace residue lining oral structures - Pharyngeal Phase Initiation of Pharyngeal Swallow: Bolus head in pyriforms Soft Palate Elevation: No bolus between soft palate and pharyngeal wall Laryngeal Elevation: Partial superior movement thyroid cart/partial apprx aryt- epig petiole Anterior Hyoid Excursion: Partial anterior movement Epiglottic Movement: Complete inversion Laryngeal Vestibule Closure at Height of Swallow: Incomplete; narrow column of air/contrast in laryngeal vestibule Pharyngeal Stripping Wave: Present - complete Pharyngoesophageal Segment Opening: Parital distension and partial duration; parital obstruction of flow Tongue Base Retraction: Narrow column of contrast between tongue base & post. pharyngeal wall Pharyngeal Residue: Minimal to no pharyngeal clearance - Esophageal Phase Esophageal Clearance: Complete clearance - Treatment Strategies Effects of treatment strategies attemped:: Decreased bolus size = effective. Effortful swallow = effective. - Diagnosis/Impression Diagnosis: Mild oropharyngeal phase dysphagia (R13.12) Impression: The oral phase is primarily marked by... -Decreased bolus control with >1/2 of the bolus spilling posteriorly to the pyriforms prior to swallow onset observed with thin liquid trials. -Slowed tongue motion for A-P transport. -Prolonged, but adequate mastication of cookie with trace oral residues. The pharyngeal phase is primarily marked by... -Delayed swallow onset with thin liquids. -Decreased airway closure during the swallow due to decreased anterior hyoid excursion and decreased laryngeal elevation. -Mildly decreased tongue base retraction and UES opening/duration with resulting trace-mild pharyngeal residues after the swallow. -Aspiration of large sips of thin liquids by cup - weak throat clear in response to aspiration. Trace laryngeal penetration of small sip of thin liquids via cup, which did fully eject from the laryngeal vestibule after the swallow. Use of decreased bolus size and effortful swallow was most effective in decreasing risk for aspiration. The esophageal phase is primarily marked by... -Small CP bar present at the level of C-4, which did not appear to impact bolus clearance through the UES. - Recommendations Diet: Regular Textures, Thin Liquids Comment: medications whole in puree Compensatory Strategies: Small Bites, Small Sips - effortful swallows with liquids, No Straws, Slow Rate, Sitting upright, Remain sitting upright for 30 minutes after PO intake Supervision: 1:1 Close Supervision Recommend Repeat Modified Barium Swallow: TBD Need for Skilled Speech Therapy Services: Yes Comment: Will recommend the patient for dysphagia therapy to address deficits in orop haryngeal swallow function. Will recommend the patient for oropharyngeal strengthening to improve tongue base retraction, laryngeal elevation, hyoid excursion, and lingual control (Eboni, CTAR, Arianna, effortful, lingual resistance). The patient would benefit from thorough education regarding diet recommendations and recommended compensatory strategies. Education Completed: 1. Described result of evaluation., 2. Pt understands evaluation & agrees with goals and treatment plan., 4. Family/caregivers understand evaluation & agree w/ goals & tx plan., 7. Pt requires further education on strategies & risks. - Status Active ST Patient: Active - Contact Information [facility] Speech Therapy:: Aaliyah Ratliff M.A. [facility]-[employer] Speech-Language Pathologist [facility] [address] [place] [address] [email or web address] [phone] 02/18/22 10:14
[2022-02-18] MEDS: Losartan Potassium 100 MG Tablet PO (10:00)
--- NOTE | 2022-02-18 10:46 | PCM.PN.HOSP ---
Subjective Subjective Patient states he is respiratory status is much improved since yesterday. Currently on 2 L nasal cannula. Plan is for modified barium swallow later today. Currently on nitro drip but medications have been changed for his blood pressure by cardiology this morning with the goal to discontinue the nitro drip later today if able. Patient has no expressed complaints at this time. Objective Data Objective Data Vital Signs: Vital Signs Temp Pulse Resp BP Pulse Ox O2 Del Method O2 Flow Rate 98.4 F 66 16 168/65 H 98 Nasal Cannula 2 02/18/22 08:00 02/18/22 10:00 02/18/22 10:00 02/18/22 10:00 02/18/22 10:00 02/18/22 10:00 02/18/22 10:00 FiO2 30 02/18/22 06:20 Oxygen Flow Rate (L/min) 2 Oxygen Delivery Method Nasal Cannula Weight: 81.7 kg Body Mass Index (BMI) 27.4 Intake & Output: Intake and Output for Last 24 Hours 02/16/22 02/17/22 02/18/22 23:59 23:59 23:59 Intake Total 1347 / 1347 2931.0 / 2937.0 398 / 398 Output Total 4400 / 4600 1325 / 1325 Balance 1347 / 1347 -1469.0 / -1663.0 -927 / -927 Lab / Micro Data Result Diagrams: 02/18/22 04:00 02/18/22 04:00 Labs: Laboratory Results - last 24 hr 02/17/22 08:15: POC Glucose 119 H 02/17/22 12:53: POC Glucose 156 H 02/17/22 16:48: POC Glucose 176 H 02/17/22 20:57: POC Glucose 176 H 02/18/22 04:00: WBC 10.3, RBC 3.12 L, Hgb 9.2 L, Hct 28.6 L, MCV 91.7, MCH 29.5, MCHC 32.2, RDW Std Deviation 47.8 H, RDW Coeff of Cait 14.2, Plt Count 226, MPV 10.4, Immature Gran % (Auto) 0.500, Neut % (Auto) 71.9 H, Lymph % (Auto) 13.9 L, Ocean % (Auto) 11.3 H, Eos % (Auto) 1.9, Baso % (Auto) 0.5, Absolute Neuts (auto) 7.4, Absolute Lymphs (auto) 1.44, Nucleated RBC % 0 02/18/22 04:00: Sodium 140, Potassium 4.0, Chloride 109 H, Carbon Dioxide 23.0, Anion Gap 8, BUN 42 H, Creatinine 1.81 H, Estim Creat Clear Calc 31.47, Est GFR (MDRD) Af Amer 46 L, Est GFR (MDRD) Non-Af 38 L, BUN/Creatinine Ratio 23.2 H, Glucose 140 H, Calcium 8.7, Magnesium 1.7, Total Bilirubin 0.60, AST 8 L, ALT 17, Alkaline Phosphatase 47, Total Protein 6.1 L, Albumin 2.9 L, Globulin 3.2, Albumin/Globulin Ratio 0.9 02/18/22 08:05: POC Glucose 149 H Micro: Microbiology 02/16/22 15:15 Stool Stool Occult Blood (DAX) - Final Radiography Diagnostic Testing: Radiology Impression Echocardiogram 02/16/22 19:34 Interpretation Summary Left ventricular systolic function is normal. The estimated ejection fraction is 65 %. The left atrium is mildly enlarged. There is moderate to severe mitral annular calcification. Extension of the mitral annular calcification on the base of the posterior mitral valve leaflet. Mild mitral valve stenosis. Mild (1+) mitral valve insufficiency. Mild tricuspid valve insufficiency. Mild aortic stenosis. Right ventricular systolic pressure estimated to be 55 mmHg c/w pulmonary hypertension. Stage 2 diastolic dysfunction. Ordering Physician: Karrie Montgomery Referring Physician: Jennifer Watt M.D. Performed By: Ellie Ayala RCS Chest X-Ray 02/17/22 16:45 IMPRESSION: Improved inflation without significant change in bilateral pulmonary infiltrates. Small left pleural effusion. Electronically Signed: Angel Kuo MD at 17:20 EST , Rhythm Strip Rhythm Strip: Bradycardia Rate: 36 Ectopy: None Physical Exam Const alert, oriented x3, no apparent distress and well nourished Constitutional Narrative: Elderly white male sitting up in bed eating breakfast and watching television, appears comfortable nontoxic, nursing at bedside HEENT head/scalp atraumatic and moist oral mucous membranes HEENT Narrative: Dentition is poor, Mallampati is 2, no thrush Resp normal respiratory effort, no retractions and no use of accessory muscles Resp Narrative: Few scattered crackles at bases bilaterally Auscultation: crackles; Negative for rhonchi or wheezes Cardio regular rate, regular rhythm, S1 normal heart sound, S2 normal heart sound, no murmurs, no rub and no clicks GI normal to inspection, nondistended, normoactive bowel sounds, soft to palpation, non-tender and non-distended Extremity Extremity Narrative: Trace swelling up left upper extremity due to hemiparesis, no cyanosis or clubbing Neuro oriented x3 and CN's II-XII intact bilaterally Neuro Narrative: Weakness left lower extremity, left upper extremity hemiparesis, right upper and lower extremity without any deficits Sensorium / Orientation: awake, alert, oriented to person, oriented to place and oriented to time Speech: speech normal Psych Psych Narrative: Affect is slightly flat however eye contact is good and mood does not seem depressed at this time Assessment & Plan Assessment/Plan (1) Near syncope: (2) Acute hypotension: (3) Accidental overdose of clonidine: (4) Aspiration pneumonia: (5) NABILA (acute kidney injury): (6) Essential hypertension: (7) Acute respiratory failure with hypoxia: PLAN: Plan Acute syncope-multifactorial -Due to hypotension/bradycardia/dehydration/NABILA -No further episodes -Echocardiogram done 02/16/2022 demonstrated EF of 65% mildly enlarged left atrium, moderate to severe mitral annular calcification with mild mitral valve stenosis, mild aortic stenosis, stage II diastolic dysfunction and right ventricular systolic pressure 55 mmHg -Patient is no longer hypotensive or bradycardic and medication adjustments are being pursued Acute hypoxic respiratory failure -Late yesterday afternoon the patient's oxygen saturations dropped in the mid 80s. -Patient was noted to be tachypneic and required rescue BiPAP -40 mg of IV Lasix given -Supplemental IV fluids discontinued -Crackles were noted at the bases at that time -Better oxygenation today and patient has been weaned back to 2 L NABILA on CKD stage IIIa -Secondary to dehydration and medications -Baseline serum creatinine appears to be between 1.2 and 1.4 -Creatinine on presentation was 2.34--> down today to 1.81 -Patient does have history of renal artery stenosis however stent was placed for this -ARB reinitiated -Monitor -Avoid nephrotoxins as able Hyperkalemia -Resolved -Continue to monitor with reinitiation of ARB -BMP in a.m. Hypertension -Medication adjustments made today -Continue amlodipine 10 mg daily -Continue carvedilol 25 mg daily -Hydrochlorothiazide discontinued -Losartan 100 mg daily added -Continue doxazosin 8 mg at at bedtime -Continue nitroglycerin drip with hopes to wean given above changes -Plan is to discontinue clonidine indefinitely -Appreciate cardiology input History of ventricular tachycardia -Noted on previous outpatient ambulatory monitoring -No episodes this admission -Cardiology following Suspected aspiration pneumonia -Continue Unasyn day 2 of 7 - unable to produce sputum -Speech therapy is following -Planned modified barium swallow later today -Continue I-S Dysphagia -History of stroke previously -Speech therapy following -MBS later today DM-2 -Hold home metformin -Continue home insulin regimen -Continue Accu-Cheks -Continue sliding scale -Continue to monitor blood sugars--> a.m. fasting sugar was 140 Hyperlipidemia -Continue statin History of stroke -Continue aspirin and Plavix Hypomagnesemia -Resolved Chronic normocytic anemia -Baseline hemoglobin appears to be between 10 and 11 -Current hemoglobin 9.2 however no obvious source of bleeding -Continue to monitor BPH -Continue home doxazosin Diabetic neuropathy -Continue home GRANT [place] Glaucoma -Continue eyedrops Restless leg syndrome -Continue home Mirapex Depression -Continue home sertraline DVT prophylaxis -Subcu heparin 3 times daily CODE STATUS -DNR CCA with no intubation Charges/Coding Visit Charges Inpatient E&M: 86235 Subs Hosp L2
[2022-02-18] MEDS: Insulin Lispro 100 UNIT/ML INSULN.PEN SC ×3 (11:51→22:03)
[2022-02-18 12:10] LABS: Bedside Glucose 198 mg/dL (74-106)
[2022-02-18 16:41] LABS: Bedside Glucose 212 mg/dL (74-106)
[2022-02-18] MEDS: 0.9% Saline Lock 10 ML Syringe IV (18:33)
[2022-02-18] MEDS: Doxazosin 4 MG Tablet 8 MG PO (20:07)
[2022-02-18] MEDS: Gabapentin 300 MG Capsule PO (20:07)
[2022-02-18 22:25] LABS: Bedside Glucose 247 mg/dL (74-106)
[2022-02-19] VITALS (40 sets, daily range): BP systolic 135–177; BP diastolic 55–82; PULSE 58–91; RESP 12–27; TEMP 36.6–37.2; O2SAT 89–99
[2022-02-19 03:37] LABS: Absolute Lymphocyte Count 1.49 X10^3/uL (0.83-4.51); Absolute Neutrophil Count 8.4 X10^3/uL (2.0-7.7); Basophil# 0.05 X10^3/uL; Basophil% 0.4 % (0-1); Eosinophil# 0.11 X10^3/uL; Hematocrit 27.5 % (40-54); Lymphocyte # 1.49 X10^3/ul (0.83-4.51); Lymphocyte % 12.9 % (19-41); Mean Corp Hgb Conc 32.7 g/dL (32-36); Mean Corpuscular Hgb 30.3 pg (27.0-32.0); Mean Corpuscular Volume 92.6 fL (80-94); Mean Platelet Vol. 10.8 fl (6.2-12.0); Monocyte# 1.42 X10^3/uL; Monocyte% 12.3 % (0-10); NRBC Flagged by Analyzer 0 % (0-5); Neutrophil # 8.42 X10^3/uL (2.7-7.7); Neutrophil % 72.8 % (47-70); Platelet Count 209 K/mm3 (150-450); RBC Distribution Width CV 14.1 % (11.6-14.6); RBC Distribution Width SD 47.8 fl (35.1-43.9); Red Blood Count 2.97 M/mm3 (4.6-6.2); White Blood Count 11.6 K/mm3 (4.4-11.0)
[2022-02-19 03:47] LABS: Anion Gap 7 (5-15); BUN 39 mg/dL (7-18); BUN/Creat Ratio 21.7 RATIO (10-20); Calcium,Total 8.9 mg/dL (8.5-10.1); Chloride 109 mmol/L (98-107); EST Glomerular Filtration Rate 39 mL/min (>60); Est Glom Filt Rate - Afr Amer 47 mL/min (>60); Estimated Creatinine Clearance 31.64 ml/min; Glucose 167 mg/dL (74-106); Magnesium 1.8 mg/dL (1.6-2.6); Phosphorus 3.5 mg/dL (2.5-4.9); Potassium 4.1 mmol/L (3.5-5.1); Sodium Level 139 mmol/L (136-145)
[2022-02-19] MEDS: hydrALAZINE 20 MG/ML Vial 10 MG IV (05:06)
[2022-02-19] MEDS: Heparin Injection (Vial) 5,000 UNIT/ML VIAL 5000 UNIT SC ×3 (05:07→21:20)
[2022-02-19] MEDS: TITRATION PARAMETER CHANGE 1 EACH IV (07:23)
[2022-02-19] MEDS: Gabapentin 100 MG Capsule PO ×2 (07:45→13:37)
[2022-02-19] MEDS: Insulin Lispro 100 UNIT/ML INSULN.PEN SC ×4 (07:45→21:33)
[2022-02-19] MEDS: Aspirin 81 MG TAB.CHEW PO (07:45)
[2022-02-19 08:10] LABS: Bedside Glucose 157 mg/dL (74-106)
[2022-02-19] MEDS: Losartan Potassium 100 MG Tablet PO (09:28)
[2022-02-19] MEDS: Clopidogrel Bisulfate 75 MG Tablet PO (09:28)
[2022-02-19] MEDS: hydrALAZINE 50 MG Tablet PO (09:28)
[2022-02-19] MEDS: Carvedilol 25 MG Tablet PO ×2 (09:28→21:22)
[2022-02-19] MEDS: Sertraline 50 MG Tablet PO (09:28)
[2022-02-19] MEDS: amLODIPine 10 MG Tablet PO (09:29)
[2022-02-19] MEDS: Acetaminophen 500 MG Tablet 1000 MG PO (09:29)
[2022-02-19 11:50] LABS: Bedside Glucose 234 mg/dL (74-106)
--- NOTE | 2022-02-19 11:57 | PCM.PN.HOSP ---
Subjective Subjective Patient remains on nitroglycerin despite medication changes yesterday. We will add hydralazine today. Patient is complaining of bilateral toe pain. He states that he takes Requip for this so we will reinitiate this. No specific events overnight. No recurrent hypotensive episodes. Objective Data Objective Data Vital Signs: Vital Signs Temp Pulse Resp BP Pulse Ox O2 Del Method O2 Flow Rate 97.8 F 78 20 H 166/67 H 91 Nasal Cannula 2 02/19/22 11:00 02/19/22 11:00 02/19/22 11:00 02/19/22 11:15 02/19/22 11:00 02/19/22 11:00 02/19/22 11:00 FiO2 30 02/19/22 05:00 Oxygen Flow Rate (L/min) 2 Oxygen Delivery Method Nasal Cannula Weight: 81.3 kg Body Mass Index (BMI) 27.4 Intake & Output: Intake and Output for Last 24 Hours 02/17/22 02/18/22 02/19/22 23:59 23:59 23:59 Intake Total 2931.0 / 2937.0 1059.30 / 1060.80 66.75 / 66.75 Output Total 4400 / 4600 2570 / 2670 365 / 365 Balance -1469.0 / -1663.0 -1510.70 / -1609.20 -298.25 / -298.25 Lab / Micro Data Result Diagrams: 02/19/22 03:15 02/19/22 03:15 Labs: Laboratory Results - last 24 hr 02/18/22 11:49: POC Glucose 198 H 02/18/22 16:22: POC Glucose 212 H 02/18/22 22:02: POC Glucose 247 H 02/19/22 03:15: WBC 11.6 H, RBC 2.97 L, Hgb 9.0 L, Hct 27.5 L, MCV 92.6, MCH 30.3, MCHC 32.7, RDW Std Deviation 47.8 H, RDW Coeff of Cait 14.1, Plt Count 209, MPV 10.8, Immature Gran % (Auto) 0.600, Neut % (Auto) 72.8 H, Lymph % (Auto) 12.9 L, [place] % (Auto) 12.3 H, Eos % (Auto) 1.0, Baso % (Auto) 0.4, Absolute Neuts (auto) 8.4 H, Absolute Lymphs (auto) 1.49, Nucleated RBC % 0 02/19/22 03:15: Sodium 139, Potassium 4.1, Chloride 109 H, Carbon Dioxide 23.0, Anion Gap 7, BUN 39 H, Creatinine 1.80 H, Estim Creat Clear Calc 31.64, Est GFR (MDRD) Af Amer 47 L, Est GFR (MDRD) Non-Af 39 L, BUN/Creatinine Ratio 21.7 H, Glucose 167 H, Calcium 8.9, Phosphorus 3.5, Magnesium 1.8 02/19/22 07:37: POC Glucose 157 H 02/19/22 11:14: POC Glucose 234 H Micro: Microbiology 02/16/22 18:45 Blood Culture (Wb) - Arm Right Blood Culture - Preliminary No growth in 48 hours. 02/16/22 15:15 Stool Stool Occult Blood (DAX) - Final Rhythm Strip Rhythm Strip: Bradycardia Rate: 36 Ectopy: None Physical Exam Const alert, oriented x3, no apparent distress and well nourished Constitutional Narrative: Elderly white male sitting up in bed eating breakfast and watching television, appears comfortable nontoxic, occupational health nursing director at bedside helping patient with oral intake given dysphagia HEENT normocephalic, head/scalp atraumatic and moist oral mucous membranes Resp normal respiratory effort, no retractions, no use of accessory muscles and clear to auscultation bilaterally Auscultation: crackles; Negative for rhonchi or wheezes Cardio regular rate, regular rhythm, S1 normal heart sound, S2 normal heart sound, no murmurs, no rub and no clicks GI normal to inspection, nondistended, normoactive bowel sounds, soft to palpation, non-tender and non-distended Extremity Extremity Narrative: Trace swelling up left upper extremity due to hemiparesis, no cyanosis or clubbing Neuro oriented x3 and moves all extremities Neuro Narrative: Weakness left lower extremity, left upper extremity hemiparesis, right upper and lower extremity without any deficits Speech: speech normal Psych affect normal Assessment & Plan Assessment/Plan (1) Near syncope: (2) Acute hypotension: (3) Accidental overdose of clonidine: (4) Aspiration pneumonia: (5) NABILA (acute kidney injury): (6) Essential hypertension: (7) Acute respiratory failure with hypoxia: PLAN: Plan Acute syncope-multifactorial -Due to hypotension/bradycardia/dehydration/NABILA -No further episodes -Echocardiogram done 02/16/2022 demonstrated EF of 65% mildly enlarged left atrium, moderate to severe mitral annular calcification with mild mitral valve stenosis, mild aortic stenosis, stage II diastolic dysfunction and right ventricular systolic pressure 55 mmHg -Patient is no longer hypotensive or bradycardic and medication adjustments are being pursued Acute hypoxic respiratory failure -Failure has resolved but patient is still requiring 2 L nasal cannula -Patient is not O2 dependent at baseline -Aspiration suspected -O2 as able -Continue incentive spirometer NABILA on CKD stage IIIa -Secondary to dehydration and medications -Baseline serum creatinine appears to be between 1.2 and 1.4 -Creatinine on presentation was 2.34--> stable at 1.80 today -Patient does have history of renal artery stenosis however stent was placed for this -ARB reinitiated yesterday we will continue to monitor renal function -Monitor -Avoid nephrotoxins as able Hyperkalemia -Resolved and remained stable -Continue to monitor with reinitiation of ARB -BMP in a.m. Hypertension -Remains hypertensive with systolic pressures in the 160s to 170s -Patient still on nitro drip -Continue amlodipine 10 mg daily -Continue carvedilol 25 mg daily -Hydrochlorothiazide discontinued on 02/18/2022 -Losartan 100 mg daily added on 02/18/2022 -Continue doxazosin 8 mg at at bedtime -Hydralazine 50 mg 3 times daily with intent to uptitrate if a.m. dose does not improve blood pressures -Continue nitroglycerin drip with hopes to wean given above changes -Plan is to discontinue clonidine indefinitely -Appreciate cardiology input History of ventricular tachycardia -Noted on previous outpatient ambulatory monitoring -No episodes this admission -Cardiology following Suspected aspiration pneumonia -Continue Unasyn day 3 of 7 - unable to produce sputum -Continue I-S Dysphagia -History of stroke previously -Modified barium swallow done on 02/18/2022 demonstrated mild oropharyngeal phase dysphagia -Diet recommendations per modified barium swallow were for regular textures and thin liquids with compensatory strategies Compensatory Strategies:?Small Bites, Small Sips - effortful swallows with liquids, No Straws, Slow Rate, Sitting upright, Remain sitting upright for 30 minutes after PO intake -Patient will need speech therapy upon discharge DM-2 -Hold home metformin -Continue home insulin regimen -Continue Accu-Cheks -Continue sliding scale -Continue to monitor blood sugars--> a.m. fasting sugar was 167 Hyperlipidemia -Continue statin History of stroke -Continue aspirin and Plavix Hypomagnesemia -Resolved and remained stable Chronic normocytic anemia -Baseline hemoglobin appears to be between 10 and 11 -Current hemoglobin 9.0 however no obvious source of bleeding -Continue to monitor BPH -Continue home doxazosin Diabetic neuropathy -Continue home gabapentin Glaucoma -Continue eyedrops Restless leg syndrome -Continue home Mirapex Depression -Continue home sertraline DVT prophylaxis -Subcu heparin 3 times daily CODE STATUS -DNR CCA with no intubation Charges/Coding Visit Charges Inpatient E&M: 38162 Subs Hosp L2
[2022-02-19] MEDS: hydrALAZINE 50 MG Tablet 75 MG PO ×2 (14:13→21:21)
--- NOTE | 2022-02-19 15:22 | CASEMGMT ---
CHADD VIEIRA NOTE: CHADD VIEIRA to room. Zuleyka/FREEDOM @ bedside and just finishing working w/pt. Zuleyka recommends additional therapy. CHADD VIEIRA introduced self and role. Discussed discharge planning and therapy with pt. Pt states he wishes to return home and declines wanting HHC or OP therapy. He states he has had both in the past. He states HHC was a pain in my rear. He stated re: OP therapy, I don't think they did much helping me. It was nothing we can't do at home and we can do it on a daily basis. Pt made aware, if he changes his mind once returning home, to discuss therapy options w/Dr Watt. He voices understanding. Pt currently on O2 and does not have home O2. Pt aware of DME co's that deliver O2 on the weekend. He chooses [employer]. He states he has had it in the past and understands the home set-up process. He states he has a pulse ox. Pt denies having further discharge planning needs/concerns. Green sheet placed on chart w/instructions for home O2 set-up, should pt qualify for home O2 @ d/c. Parvin SIBLEY RN, CM
[2022-02-19 17:05] LABS: Bedside Glucose 222 mg/dL (74-106)
[2022-02-19] MEDS: Gabapentin 300 MG Capsule PO (21:21)
[2022-02-19] MEDS: Doxazosin 4 MG Tablet 8 MG PO (21:22)
[2022-02-19] MEDS: Pramipexole Di-HCl 0.125 MG Tablet PO (21:26)
[2022-02-19 21:56] LABS: Bedside Glucose 223 mg/dL (74-106)
[2022-02-20] VITALS (17 sets, daily range): BP systolic 133–172; BP diastolic 54–70; PULSE 57–84; RESP 12–23; TEMP 36.9–37.2; O2SAT 88–98
[2022-02-20 03:11] LABS: Absolute Lymphocyte Count 1.26 X10^3/uL (0.83-4.51); Absolute Neutrophil Count 9.5 X10^3/uL (2.0-7.7); Basophil# 0.05 X10^3/uL; Basophil% 0.4 % (0-1); Eosinophil# 0.22 X10^3/uL; Eosinophils% 1.8 % (0-5); Hematocrit 28.4 % (40-54); Hemoglobin 9.2 g/dL (13.0-16.5); Lymphocyte # 1.26 X10^3/ul (0.83-4.51); Lymphocyte % 10.2 % (19-41); Mean Corp Hgb Conc 32.4 g/dL (32-36); Mean Corpuscular Hgb 30.1 pg (27.0-32.0); Mean Corpuscular Volume 92.8 fL (80-94); Mean Platelet Vol. 10.6 fl (6.2-12.0); Monocyte# 1.24 X10^3/uL; NRBC Flagged by Analyzer 0 % (0-5); Neutrophil # 9.46 X10^3/uL (2.7-7.7); Neutrophil % 76.7 % (47-70); Platelet Count 216 K/mm3 (150-450); RBC Distribution Width CV 14.2 % (11.6-14.6); Red Blood Count 3.06 M/mm3 (4.6-6.2); White Blood Count 12.3 K/mm3 (4.4-11.0)
[2022-02-20 03:24] LABS: Anion Gap 8 (5-15); BUN 43 mg/dL (7-18); Calcium,Total 8.8 mg/dL (8.5-10.1); Chloride 109 mmol/L (98-107); Creatinine, Serum 1.72 mg/dL (0.70-1.30); EST Glomerular Filtration Rate 41 mL/min (>60); Est Glom Filt Rate - Afr Amer 49 mL/min (>60); Estimated Creatinine Clearance 33.11 ml/min; Glucose 205 mg/dL (74-106); Sodium Level 140 mmol/L (136-145)
[2022-02-20] MEDS: Heparin Injection (Vial) 5,000 UNIT/ML VIAL 5000 UNIT SC (07:02)
[2022-02-20] MEDS: hydrALAZINE 50 MG Tablet 75 MG PO (07:02)
[2022-02-20] MEDS: Insulin Lispro 100 UNIT/ML INSULN.PEN SC ×2 (07:03→12:47)
[2022-02-20 07:30] LABS: Bedside Glucose 171 mg/dL (74-106)
--- NOTE | 2022-02-20 08:37 | CASEMGMT ---
Social Work Healthcare POA and LW in [facility]. SW printed to be placed in paper chart. Abigail Thomas is listed as Healthcare POA. ELOY aLzo
[2022-02-20] MEDS: Aspirin 81 MG TAB.CHEW PO (09:23)
[2022-02-20] MEDS: Losartan Potassium 100 MG Tablet PO (09:24)
[2022-02-20] MEDS: amLODIPine 10 MG Tablet PO (09:24)
[2022-02-20] MEDS: Carvedilol 25 MG Tablet PO (09:24)
[2022-02-20] MEDS: Clopidogrel Bisulfate 75 MG Tablet PO (09:24)
[2022-02-20] MEDS: Sertraline 50 MG Tablet PO (09:25)
[2022-02-20] MEDS: levoFLOXacin 750 MG Tablet PO (09:26)
[2022-02-20] MEDS: Gabapentin 100 MG Capsule PO ×2 (09:28→14:06)
--- NOTE | 2022-02-20 11:03 | DS.PCM_ITS ---
Providers Date of Admission: 02/16/22 Date of Discharge: 02/20/22 Primary Care Physician: Dr. Jennifer Watt MD Consultations 02/16/22 18:04 Consult: Cardiology Routine Consulting Provider: Angel Adamson Reason for Consult: Bradycardia EMERGENT Consult: No MD Notified: Yes Date Notified: 02/16/22 Time Notified: 18:00 Method of Notification: Text Reason For Visit: HYYPOTENSION Diagnosis Discharge Diagnosis (1) Near syncope: Status: Acute Code(s): R55 - Syncope and collapse (2) Acute hypotension: Status: Acute Code(s): I95.9 - Hypotension, unspecified (3) Accidental overdose of clonidine: Status: Acute Code(s): T46.5X1A - Poisoning by other antihypertensive drugs, accidental (unintentional), initial encounter (4) Aspiration pneumonia: Status: Acute Code(s): J69.0 - Pneumonitis due to inhalation of food and vomit (5) NABILA (acute kidney injury): Status: Acute Code(s): N17.9 - Acute kidney failure, unspecified (6) Essential hypertension: Status: Chronic Code(s): I10 - Essential (primary) hypertension (7) Acute respiratory failure with hypoxia: Status: Acute Code(s): J96.01 - Acute respiratory failure with hypoxia Medications at Discharge Home Medications multivitamin,[id number] (Complete Multivitamin tablet) 1 tab PO QDAY supplement 03/03/17 aspirin 81 mg chewable tablet 81 mg PO BREAKFAST heart health 01/02/21 Arthritis Pain Compound 0 click topical BID ##0 01/27/21 latanoprost 0.005 % eye drops 1 drp EACH EYE HS #0 mL 01/27/21 Handicap Placard #1 ea 02/12/21 gabapentin 100 mg capsule 100 mg PO BID #40 caps 02/26/21 gabapentin 300 mg capsule 300 mg PO 2100 #20 caps 02/26/21 pen needle, diabetic 32 gauge x (BD Sanaz 2nd Gen Pen Needle) #50 ea 06/02/21 doxazosin 8 mg tablet 8 mg PO QHS #90 tabs 09/29/21 pramipexole 0.125 mg tablet 0.125 mg PO QHS #90 tabs 10/13/21 carvedilol 25 mg tablet 25 mg PO BID #180 tabs 01/06/22 clopidogrel 75 mg tablet (Plavix) 75 mg PO DAILY #90 tabs 01/06/22 ezetimibe 10 mg tablet (Zetia) 10 mg PO DAILY #90 tabs 01/06/22 sertraline 50 mg tablet 50 mg PO DAILY #90 tabs 01/06/22 insulin glargine 100 unit/mL (3 mL) subcutaneous pen (Basaglar KwikPen U-100 Insulin) 10 unit subcut DAILY Diabetes 02/16/22 metformin 500 mg tablet 500 mg PO DAILY DIABETES 02/16/22 amlodipine 10 mg tablet 10 mg PO DAILY Check with primary doctor 02/18/22 hydralazine 50 mg tablet 100 mg PO TID #180 tabs 02/20/22 levofloxacin 750 mg tablet 750 mg PO Q48H #4 tabs 02/20/22 losartan 100 mg tablet 100 mg PO DAILY #30 tabs 02/20/22 Hospital Course Operations None Procedures 2-D Echocardiogram and - (Modified barium swallow/chest x-ray/EKG) Summary of Care Provided Minutes Spent on Discharge: 40 Hospital Course: Mr. Thomas is an 81-year-old white male who presented to the emergency department at [facility] on 12/17/2021 with presyncope for 1 day. The patient has a history of recent stroke and he was at his monthly stroke support meeting. He was going home and being helped by one of the volunteers at which time he felt lightheadedness and slumped backwards. His found his eyes glazed and he was not responding all that much but began responding what was reported as a few minutes later. He was said to have looked singh/ashen and a rapid response was called at that time. The patient was reluctantly sent to the emergency department. At the time the admitting hospitalist evaluated the patient he denied any chest pain, lightheadedness or dizziness, or palpitations. He denied any fever or chills or recent illness. It was discovered that he had been taking his antihypertensive medications incorrectly because he thought he was supposed to be taking clonidine 0.4 mg twice daily. He also admitted in the emergency department that lately, over the last 2 months, he had been having difficulty swallowing and was coughing while he was eating. He had a cough that was nonproductive but denied any nausea, vomiting, or diarrhea. Vitals in the ED showed blood pressure 86/43, heart rate 35, respiratory 11, temperature 95.5, oxygen was 97% on room air.? His WBC count was 7.4, hemoglobin 10.0, recent hemoglobin was 10.2, platelet count was 234.? INR is 1.2, sodium 137, potassium 5.8, chloride 106, bicarbonate 20, BUN 46, creatinine 2.34, previous creatinine 1 month ago was 1.65.? Magnesium was 1.8.? BNP was 38 and 9.9, TSH 2.51. Admitting chest x-ray showed bibasilar atelectasis and right lower lung infiltrate. Cardiology was consulted upon presentation. He was admitted to the ICU initially and his bradycardia appeared to be junctional nature with ventricular rates between 30 and 40 bpm. His heart rate did improve at the time of cardiology evaluation to sinus bradycardia with ventricular rates in the 50s. It was felt that his bradycardia was likely related to an inadvertent increase of his clonidine therapy and the fact that he was ongoing Coreg. His clonidine and Coreg were held at that time. His blood pressure did improve with holding of his antihypertensives. His blood pressure then became elevated and he was started on a nitroglycerin drip and in addition to the hydrochlorothiazide and amlodipine that were reinitiated. His Coreg was restarted on the eighth and losartan was added. Hydrochlorothiazide was discontinued at that time. An echocardiogram was obtained and showed no significant change with preserved LV function. His blood pressure remained elevated on the a.m. of 02/19/2022 and we initiated hydralazine initially at 50 mg with up titration to 75 mg later in the day. He was eventually discharged on 100 mg 3 times daily. His blood pressure was much better controlled with systolic pressures anywhere from 1 30-1 50 at t he time of discharge when medications were on board. Prescriptions for his new medications were sent to the pharmacy prior to discharge and he was encouraged to follow-up for a blood pressure check with his primary care physician's office within the next 7 days and to follow-up with Dr. Lucero's office within the next 2 weeks. He was advised that he will need to call make an appointment. He did develop a brief episode of respiratory distress and hypoxia on 02/17/2022 and it was felt likely related to aspiration. For his right lower lobe infiltrate he was started on empiric antibiotics with Unasyn at presentation. Given his decompensation on the seventh speech therapy was consulted and a modified barium swallow was done. A modified barium swallow did demonstrate mild oropharyngeal phase dysphagia and diet recommendations were regular textures and thin liquids with compensatory strategies including small bites and small sips with effortful swallows with liquids, no straws, slow rate, sitting upright and remain upright 30 minutes after p.o. intake. This was reviewed both with the patient and the and these compensatory strategies were placed on his discharge instructions. Speech therapy strongly advised ongoing speech therapy at discharge and a prescription for ongoing speech therapy was written for in the family indicated they would follow-up at [facility]. Physical and Occupational Therapy also recommended ongoing therapy in the form of home health services. Patient and declined. They also made it sound to the nurse prior to discharge but they felt they had plenty of help at home and needed no therapy services at discharge. We did however write for physical, occupational, and speech therapy services to be continued after discharge at [facility] and it was recommended that family call to make an appointment next Tuesday. He was maintained on oral antibiotics in the form of Levaquin at discharge to complete treatment for his aspiration pneumonia. He had 4 more days of treatment with 750 mg of Levaquin every 48 hours. He did require discharge home with supplemental oxygen during exertion. Oxygen saturations were consistently greater than 88% with rest however with exertion saturations drop below 88% and he required 2 L with ambulation. All new prescriptions were sent to the pharmacy and again he was instructed to follow-up with his primary care physician within the next week for at least a blood pressure check and with Dr. Lucero's office within the next 2 weeks. Discharge diagnoses: Acute syncope Acute hypoxic respiratory failure secondary to aspiration Aspiration pneumonia NABILA-resolved CKD stage IIIa Hyperkalemia-resolved Hypertension History of ventricular tachycardia Dysphagia DM-2 Hyperlipidemia History of stroke Chronic normocytic anemia BPH Diabetic neuropathy Glaucoma Restless leg syndrome Depression Debility Physical Exam Const alert, oriented x3, no apparent distress and well nourished Constitutional Narrative: Elderly white male sitting up in bed eating breakfast and watching television, appears comfortable, nontoxic, at bedside, on room air General Appearance: cooperative, comfortable, well kempt and well developed Orientation / Consciousness: awake, oriented to person, oriented to place and oriented to time Exam Limitations: no limitations HEENT normocephalic, head/scalp atraumatic and moist oral mucous membranes HEENT Narrative: Moderate hearing loss, dentition is fair, Mallampati 2, no thrush Eyes PERRL, EOMs intact bilaterally and conjunctivae normal Eyes Narrative: EOM grossly intact, anicteric Neck no lymphadenopathy and supple Neck Narrative: Trachea midline, no thyroid enlargement Resp normal respiratory effort, no retractions, no use of accessory muscles and clear to auscultation bilaterally Auscultation: Negative for crackles, rhonchi or wheezes Cardio regular rate, regular rhythm, S1 normal heart sound, S2 normal heart sound, no murmurs, no rub, no gallops and no clicks GI normal to inspection, nondistended, normoactive bowel sounds, soft to palpation, non-tender and non-distended Extremity Extremity Narrative: Trace swelling up left upper extremity due to hemiparesis, no cyanosis or clubbing Skin no rashes or lesions noted, no wounds, skin turgor normal and no jaundice Neuro oriented x3, CN's II-XII intact bilaterally and moves all extremities Neuro Narrative: Weakness left lower extremity, left upper extremity hemiparesis, right upper and lower extremity without any deficits Sensorium / Orientation: awake, alert, oriented to person, oriented to place and oriented to time Speech: speech normal Psych affect normal Psych Narrative: Affect is slightly flat however eye contact is good and mood does not seem depressed at this time Weight / BMI Weight Weight: 80.9 kg Body Mass Index (BMI) 27.4 ABG / Lab / Microbiology Data Result Diagrams: 02/20/22 03:06 02/20/22 03:06 Laboratory: Laboratory Results - last 24 hr 02/19/22 11:14: POC Glucose 234 H 02/19/22 16:39: POC Glucose 222 H 02/19/22 21:33: POC Glucose 223 H 02/20/22 03:06: WBC 12.3 H, RBC 3.06 L, Hgb 9.2 L, Hct 28.4 L, MCV 92.8, MCH 30.1, MCHC 32.4, RDW Std Deviation 48.0 H, RDW Coeff of Cait 14.2, Plt Count 216, MPV 10.6, Immature Gran % (Auto) 0.900, Neut % (Auto) 76.7 H, Lymph % (Auto) 10.2 L, [place] % (Auto) 10.0, Eos % (Auto) 1.8, Baso % (Auto) 0.4, Absolute Neuts (auto) 9.5 H, Absolute Lymphs (auto) 1.26, Nucleated RBC % 0 02/20/22 03:06: Sodium 140, Potassium 4.0, Chloride 109 H, Carbon Dioxide 23.0, Anion Gap 8, BUN 43 H, Creatinine 1.72 H, Estim Creat Clear Calc 33.11, Est GFR (MDRD) Af Amer 49 L, Est GFR (MDRD) Non-Af 41 L, BUN/Creatinine Ratio 25.0 H, Glucose 205 H, Calcium 8.8 02/20/22 07:00: POC Glucose 171 H Microbiology: Microbiology 02/16/22 18:45 Blood Culture (Wb) - Arm Right Blood Culture - Preliminary No growth in 48 hours. 02/16/22 15:15 Stool Stool Occult Blood (DAX) - Final D/C Instructions Discharge Diet: Low fat / Low cholesterol Discharge Activity: Return to Normal Activity Meaningful Use Info Meaningful Use Diagnoses (Choose all that apply): None applicable Discharge Plan Admission Admit Date/Time: 02/16/22 17:03 Primary Reason for Your Visit: Presyncope Attending Provider: Anai Sanchez Primary Care Provider: Jennifer Watt Consulting Providers: Angel Adamson ; Karrie Montgomery ; Amalia Aguila Instructions Additional Instructions / Restrictions: 1. Call Tuesday for appointment with physical therapy, Occupational Therapy, and speech therapy at [facility] 2. Speech therapy recommendations for eating at home include -Small Bites, Small Sips - effortful swallows with liquids, No Straws, Slow Rate, Sitting upright, Remain sitting upright for 30 minutes after oral intake -Take medications in applesauce Discharge Orders/Prescriptions Prescriptions: New hydralazine 50 mg Tablet 100 mg PO TID Qty: 180 1RF levofloxacin 750 mg Tablet 750 mg PO Q48H Qty: 4 0RF Rx Instructions: Take only every other day losartan 100 mg Tablet 100 mg PO DAILY Qty: 30 1RF Continued multivitamin,sw-pcyn-cwqumsyl tablet tablet 1 tab PO QDAY aspirin 81 mg tablet,chewable 81 mg PO BREAKFAST latanoprost 0.005 % Drops 1 drp EACH EYE HS Qty: 0 0RF Arthritis Pain Compound 0 click topical BID Qty: 0 0RF metformin 500 mg tablet 500 mg PO DAILY insulin glargine [Basaglar KwikPen U-100 Insulin] 100 unit/mL (3 mL) insulin pen 10 unit SUBCUT DAILY amlodipine 10 mg Tablet 10 mg PO DAILY (DME) Handicap Placard See Rx Instructions .Route .MEDSUPPLY Qty: 1 0RF Rx Instructions: Length of time: 5 years gabapentin 300 mg capsule 300 mg PO 2100 Qty: 20 0RF gabapentin 100 mg capsule 100 mg PO BID Qty: 40 0RF (DME) pen needle, diabetic [BD Sanaz 2nd Gen Pen Needle] 32 gauge x needle See Rx Instructions .ROUTE .MEDSUPPLY Qty: 50 2RF Rx Instructions: use once daily to adminster insulin as directed. doxazosin 8 mg tablet 8 mg PO QHS Qty: 90 3RF pramipexole 0.125 mg tablet 0.125 mg PO QHS Qty: 90 3RF clopidogrel [Plavix] 75 mg tablet 75 mg PO DAILY Qty: 90 3RF sertraline 50 mg tablet 50 mg PO DAILY Qty: 90 3RF carvedilol 25 mg tablet 25 mg PO BID Qty: 180 3RF Rx Instructions: must administer with a meal/food ezetimibe [Zetia] 10 mg tablet 10 mg PO DAILY Qty: 90 3RF Rx Instructions: take at bedtime Discontinued nifedipine 30 mg tablet extended release 24hr 30 mg PO BID Qty: 90 0RF clonidine HCl 0.1 mg tablet 0.4 mg PO BID valsartan 320 mg tablet 160 mg PO QHS hydrochlorothiazide 25 mg tablet 25 mg PO DAILY Qty: 30 0RF spironolactone 50 mg tablet 50 mg PO DAILY Qty: 90 3RF Referrals / Follow Up: New Lucero MD [Med Staff - Active Staff] - Within 2 Weeks (Hypertension) Jennifer Watt MD [Primary Care Provider] - In 1 Week Disposition Disposition (needs filled in before D/C Order can be placed): Home, Self Care Charges/Coding Visit Charges Inpatient E&M: 82801 Disch Hosp
--- NOTE | 2022-02-20 12:42 | CASEMGMT ---
Social Work Pt had PT today, as per PT pt would benefit from some homecare. However, pt and are refusing placement, refusing home care at this time. ELOY Lazo
[2022-02-20 13:06] LABS: Bedside Glucose 269 mg/dL (74-106)
--- NOTE | 2022-02-20 13:16 | CASEMGMT ---
CHADD VIEIRA notified by nurse that pt requires home oxygen. CHADD VIEIRA completed oxygen sheet per request and brought portable tank to pt room. Discussed oxygen process with pt and . Pt and state they do not want the oxygen. Made aware pt qualified and the homegoing process. Updated hospitalist who states pt medically needs it. Provided pt with a rx for outpt PT, OT and ST and reiterated oxygen use.
[2022-02-20] MEDS: hydrALAZINE 50 MG Tablet 100 MG PO (14:06)
== END 2022-02-20 14:50 | disposition home or self-care (01) | DRG 917 ==
LOC: ED 17:12 → ICU 17:23
PROVIDERS: Internal Medicine; Admitting Provider Internal Medicine; Emergency Provider Emergency Medicine; PCP Internal Medicine; Visit Provider Internal Medicine
DX: T46.5X1A Poisoning by other antihypertensive drugs, accidental (unintentional), initial encounter (principal); J69.0 Pneumonitis due to inhalation of food and vomit; J96.01 Acute respiratory failure with hypoxia; N17.9 Acute kidney failure, unspecified; I69.354 Hemiplegia and hemiparesis following cerebral infarction affecting left non-dominant side; E11.22 Type 2 diabetes mellitus with diabetic chronic kidney disease; D64.9 Anemia, unspecified; E11.42 Type 2 diabetes mellitus with diabetic polyneuropathy; E11.51 Type 2 diabetes mellitus with diabetic peripheral angiopathy without gangrene; N18.31 Chronic kidney disease, stage 3a; Z79.4 Long term (current) use of insulin; I95.2 Hypotension due to drugs; E78.5 Hyperlipidemia, unspecified; R00.1 Bradycardia, unspecified; E87.5 Hyperkalemia; I12.9 Hypertensive chronic kidney disease with stage 1 through stage 4 chronic kidney disease, or unspecified chronic kidney disease; G25.81 Restless legs syndrome; G47.30 Sleep apnea, unspecified; E83.42 Hypomagnesemia; I34.81 Nonrheumatic mitral (valve) annulus calcification; R13.10 Dysphagia, unspecified; Z66 Do not resuscitate; H40.9 Unspecified glaucoma; N40.0 Benign prostatic hyperplasia without lower urinary tract symptoms; F32.A Depression, unspecified; Z79.02 Long term (current) use of antithrombotics/antiplatelets; Z79.82 Long term (current) use of aspirin
CPT/HCPCS: 71045; 74230; 80048; 80053; 82274; 82962; 83605; 83735; 83880; 84100; 84443; 84484; 85025; 85610; 86850; 86900; 86901; 87040; 92507; 92526; 92610; 92611; 93005; 93306; 94002; 94003; 94762; 97110; 97162; 97166; 97530; 97802; 99251; 99285; J7030; J7040; Q9957; A4216; G0463; J0295; J1940

== ENCOUNTER 2022-02-24 13:21 | Observation (INO) | payer MEDICARE, SELFPAY ==
[2022-02-24] VITALS (8 sets, daily range): BP systolic 125–156; BP diastolic 50–62; PULSE 59–63; RESP 12–24; TEMP 36.6–37.1; O2SAT 93–97; BMI 28.9; BMI 25.8
--- OUTSIDE RECORDS SUMMARY | 2022-02-24 14:07 | XMS RPT_ITS | CCD ---
:1940 Author Organization [facility] Results Test Name Value Interpretation Reference Range Facility [facility] on 02-02-2021 [facility] Telephone (FPWADS) [facility] FRANCISCO THOMAS ([id number]) 1940 [facility] Date Time Provider Department 02/02/21 EMELYN GIRALDO During your visit today, we recorded the following inf ormation about you: Kelvin Conn 02/02/2021 10:02 AM Signed Received orders from [facility]. Placed in provider's inbox for review. Route to [place] Allergies As of Date: 02/02/2021 Noted Allergy Reactio n CHOLESTYRAMINE 03/30/2012 14 - Other: See Comments Comments: caused low blood sugar MOBIC (MELOXICAM) 05/21/2009 7 - Swelling 9 - Itching PRAVACHOL (PRAVASTATIN SODIUM) 12/22/2009 5 - Intolera nce Comments: Myalgias. Date Reviewed: 12/24/2020 Reviewed by: Curly Dennison [facility] - Fully Assessed Reason for Visit: Orders [131] Cmt: [facility] Prescriptions as of 02/02/2021 - insulin glargine (BASAGLAR KWIKPEN U-100 INSULIN) 10 0 unit/mL (3 mL) Inject 30 Units subcutaneously every morning. - chlorthalidone (HYGROTON) 25 mg tablet Take 1 tablet by mouth once daily. - amLODIPine (NORVASC) 10 mg tablet Take 1 tablet by mouth once daily. - valsartan (DIOVAN) 320 mg tablet Take 1 tablet by mouth once daily. - metFORMIN ER (GLUCOPHAGE XR) 500 mg 24 hr tablet Take 2 tablets by mouth twice daily before meals. - Blood Pressure Monitor Use to check blood pressure daily. - Insulin Henderson, Disposabl e, (BD ULTRA-FINE SHEBA PEN NEEDLE) 32 gauge x 5/32 Use to inject insulin and Victoza, 2 injections per da y. - potassium chloride ER (KLOR-CON M20) 20 mEq tablet Take 1 tablet by mouth twice daily. - traMADol (ULTRAM) 50 mg tablet Take 50-100 mg by mouth every 6 hours as needed. - blood sugar diagnostic (WhenU.comTOUCH ULTRA TEST) test st rip Use to check blood sugar three times daily. - Lancets (WhenU.comTOUCH ULTRASOFT LANCETS) lancets Test blood sugar four times daily. Uncontrolled diabet es type 2 on insulin - latanoprost (XALATAN) 0.005 % ophthalmic solution Use 1 Drop in both eyes daily at bedtime. - therapeutic multivitamin ORAL Tab Take one(1) tablet daily. 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/31/2020 Encounter Status:Closed by KELVIN CNON on ABRAHAM on 01-28-2021 [facility] Telephone (FPWADS) [facility] FRANCISCO Grace ([id number]) 1940 [facility] Date Time Provider Department 01/28/21 EMELYN GIRALDO During your visit today, we recorded the following inf ormation about you: Eleanor Ojeda Pss 01/28/2021 12:02 PM Signed Patient discharging from [facility] today and asking if Dr will follow for home Health orders starting tomorrow Nursing P T O T Speech Therapy Had a stroke w/left sided weakness Will need to know today if Dr will Follow Please call Caroline Brizuela APRN.QA [employer]INE[employer] 01/28/2021 3:59 PM S igned Please call and give verbal orders as requested. Thanks Herlinda Roberto Ma 01/29/2021 11:00 AM Signed Left message for Kayla with verbal to start home care a s requested. Allergies As of Date: 01/28/2021 Noted Allergy Reactio n CHOLESTYRAMINE 03/30/2012 14 - Other: See Comments Comments: caused low blood sugar MOBIC (MELOXICAM) 05/21/2009 7 - Swelling 9 - Itching PRAVACHOL (PRAVASTATIN SODIUM) 12/22/2009 5 - Intolera nce Comments: Myalgias. Date Reviewed: 12/24/2020 Reviewed by: Curly Dennison RPh - Fully Assessed Reason for Visit: Patient Question [5497] Patient Update [9464] Prescriptions as of 01/29/2021 - insulin glargine (BASAGLAR KWIKPEN U-100 INSULIN) 10 0 unit/mL (3 mL) Inject 30 Units subcutaneously every morning. - chlorthalidone (HYGROTON) 25 mg tablet Take 1 tablet by mouth once daily. - amLODIPine (NORVASC) 10 mg tablet Take 1 tablet by mouth once daily. - valsartan (DIOVAN) 320 mg tablet Take 1 tablet by mouth once daily. - metFORMIN ER (GLUCOPHAGE XR) 500 mg 24 hr tablet Take 2 tablets by mouth twice daily before meals. - Blood Pressure Monitor Use to check blood pressure daily. - Insulin Henderson, Disposabl e, (BD ULTRA-FINE SHEBA PEN NEEDLE) 32 gauge x 5/32 Use to inject insulin and Victoza, 2 injections per da y. - potassium chloride ER (KLOR-CON M20) 20 mEq tablet Take 1 tablet by mouth twice daily. - traMADol (ULTRAM) 50 mg tablet Take 50-100 mg by mouth every 6 hours as needed. - blood sugar diagnostic (ONETOUCH ULTRA TEST) test st rip Use to check blood sugar three times daily. - Lancets (ONETOUCH ULTRASOFT LANCETS) lancets Test blood sugar four times daily. Uncontrolled diabet es type 2 on insulin - latanoprost (XALATAN) 0.005 % ophthalmic solution Use 1 Drop in both eyes daily at bedtime. - therapeutic multivitamin ORAL Tab Take one(1) tablet daily. 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 Placed in provider's i nbox for review. Route to MA Scanning Allergies As of Date: 01/06/2021 Noted Allergy Reactio n CHOLESTYRAMINE 03/30/2012 14 - Other: See Comments Comments: caused low blood sugar MOBIC (MELOXICAM) 05/21/2009 7 - Swelling 9 - Itching PRAVACHOL (PRAVASTATIN SODIUM) 12/22/2009 5 - Intolera nce Comments: Myalgias. Date Reviewed: 12/24/2020 Reviewed by: Curly Dennison [facility] - Fully Assessed Reason for Visit: Patient Update [1234] Cmt: [facility] Prescriptions as of 01/06/2021 - insulin glargine (BASAGLAR KWIKPEN U-100 INSULIN) 10 0 unit/mL (3 mL) Inject 30 Units subcutaneously every morning. - chlorthalidone (HYGROTON) 25 mg tablet Take 1 tablet by mouth once daily. - amLODIPine (NORVASC) 10 mg tablet Take 1 tablet by mouth once daily. - valsartan (DIOVAN) 320 mg tablet Take 1 tablet by mouth once daily. - metFORMIN ER (GLUCOPHAGE XR) 500 mg 24 hr tablet Take 2 tablets by mouth twice daily before meals. - Blood Pressure Monitor Use to check blood pressure daily. - Insulin Henderson, Disposabl e, (BD ULTRA-FINE SHEBA PEN NEEDLE) 32 gauge x 5/32 Use to inject insulin and Victoza, 2 injections per da y. - potassium chloride ER (KLOR-CON M20) 20 mEq tablet Take 1 tablet by mouth twice daily. - traMADol (ULTRAM) 50 mg tablet Take 50-100 mg by mouth every 6 hours as needed. - blood sugar diagnostic (ONETOUCH ULTRA TEST) test st rip Use to check blood sugar three times daily. - Lancets (ONETOUCH ULTRASOFT LANCETS) lancets Test blood sugar four times daily. Uncontrolled diabet es type 2 on insulin - latanoprost (XALATAN) 0.005 % ophthalmic solution Use 1 Drop in both eyes daily at bedtime. - therapeutic multivitamin ORAL Tab Take one(1) tablet daily. Problem List As Of Date 01/06/2021 Noted Resolved Chronic pain of right knee [M25.561, G89.29] 6 MIXED HYPERLIPIDEMIA [E78.2] 12/31/2005 Essential hypertension [I10] 12/31/2005 Uncontrolled type 2 diabetes mellitus with micr*2009 Chronic bilateral low back pain with right-side*2011 Recurrent inguinal hernia [K40.91] 06/22/2012 DM (diabetes mellitus), type 2, uncontrolled, w*2014 Encounter Status:Closed by KELVIN CONN on CNPN on 01-02-2021 CNPN Telephone (FPWADS) [facility] FRANCISCO Grace ([id number]) 1940 [facility] Date Time Provider Department 01/02/21 EMELYN GIRALDO During your visit today, we recorded the following inf ormation about you: Fide Hussein MA 01/02/2021 1:40 PM Signed Received MRI Brain without contrast from [facility]. Placed in provider's inbox for review. Route to PR for scanning Allergies As of Date: 01/02/2021 Noted Allergy Reactio n CHOLESTYRAMINE 03/30/2012 14 - Other: See Comments Comments: caused low blood sugar MOBIC (MELOXICAM) 05/21/2009 7 - Swelling 9 - Itching PRAVACHOL (PRAVASTATIN SODIUM) 12/22/2009 5 - Intolera nce Comments: Myalgias. Date Reviewed: 12/24/2020 Reviewed by: Curly Dennison [facility] - Fully Assessed Reason for Visit: MRI Report [1240] Cmt: [facility] Prescriptions as of 01/02/2021 - insulin glargine (BASAGLAR KWIKPEN U-100 INSULIN) 10 0 unit/mL (3 mL) Inject 30 Units subcutaneously every morning. - chlorthalidone (HYGROTON) 25 mg tablet Take 1 tablet by mouth once daily. - amLODIPine (NORVASC) 10 mg tablet Take 1 tablet by mouth once daily. - valsartan (DIOVAN) 320 mg tablet Take 1 tablet by mouth once daily. - metFORMIN ER (GLUCOPHAGE XR) 500 mg 24 hr tablet Take 2 tablets by mouth twice daily before meals. - Blood Pressure Monitor Use to check blood pressure daily. - Insulin Henderson, Disposabl e, (BD ULTRA-FINE SHEBA PEN NEEDLE) 32 gauge x Use to inject insulin and Victoza, 2 injections per da y. - potassium chloride ER (KLOR-CON M20) 20 mEq tablet Take 1 tablet by mouth twice daily. - traMADol (ULTRAM) 50 mg tablet Take 50-100 mg by mouth every 6 hours as needed. - blood sugar diagnostic (ONETOUCH ULTRA TEST) test st rip Use to check blood sugar three times daily. - Lancets (ONETOUCH ULTRASOFT LANCETS) lancets Test blood sugar four times daily. Uncontrolled diabet es type 2 on insulin - latanoprost (XALATAN) 0.005 % ophthalmic solution Use 1 Drop in both eyes daily at bedtime. - therapeutic multivitamin ORAL Tab Take one(1) tablet daily. Problem List As Of Date 01/02/2021 Noted Resolved Chronic pain of right knee [M25.561, G89.29] 6 MIXED HYPERLIPIDEMIA [E78.2] 12/31/2005 Essential hypertension [I10] 12/31/2005 Uncontrolled type 2 diabetes mellitus with micr*2009 Chronic bilateral low back pain with right-side*2011 Recurrent inguinal hernia [K40.91] 06/22/2012 DM (diabetes mellitus), type 2, uncontrolled, w*2014 Encounter Status:Closed by FIDE HUSSEIN on 01/02/21 [facility] Telephone (KEN) [facility] FRANCISCO Grace ([id number]) 1940 [facility] Date Time Provider Department 01/02/21 EMELYN GIRALDO During your visit today, we recorded the following inf ormation about you: Allergies As of Date: 01/02/2021 Noted Allergy Reactio n CHOLESTYRAMINE 03/30/2012 14 - Other: See Comments Comments: caused low blood sugar MOBIC (MELOXICAM) 05/21/2009 7 - Swelling 9 - Itching PRAVACHOL (PRAVASTATIN SODIUM) 12/22/2009 5 - Intolera nce Comments: Myalgias. Date Reviewed: 12/24/2020 Reviewed by: Curly Dennison RP - Fully Assessed Reason for Visit: Film Cath/Echo [0237] Prescriptions as of 01/07/2021 - insulin glargine (BASAGLAR KWIKPEN U-100 INSULIN) 10 0 unit/mL (3 mL) Inject 30 Units subcutaneously every morning. - chlorthalidone (HYGROTON) 25 mg tablet Take 1 tablet by mouth once daily. - amLODIPine (NORVASC) 10 mg tablet Take 1 tablet by mouth once daily. - valsartan (DIOVAN) 320 mg tablet Take 1 tablet by mouth once daily. - metFORMIN ER (GLUCOPHAGE XR) 500 mg 24 hr tablet Take 2 tablets by mouth twice daily before meals. - Blood Pressure Monitor Use to check blood pressure daily. - Insulin Henderson, Disposabl e, (BD ULTRA-FINE SHEBA PEN NEEDLE) 32 gauge x 5/32 Use to inject insulin and Victoza, 2 injections per da y. - potassium chloride ER (KLOR-CON M20) 20 mEq tablet Take 1 tablet by mouth twice daily. - traMADol (ULTRAM) 50 mg tablet Take 50-100 mg by mouth every 6 hours as needed. - blood sugar diagnostic (ONETOUCH ULTRA TEST) test st rip Use to check blood sugar three times daily. - Lancets (ONETOUCH ULTRASOFT LANCETS) lancets Test blood sugar four times daily. Uncontrolled diabet es type 2 on insulin - latanoprost (XALATAN) 0.005 % ophthalmic solution Use 1 Drop in both eyes daily at bedtime. - therapeutic multivitamin ORAL Tab Take one(1) tablet daily. Problem List As Of Date 01/02/2021 Noted Resolved Chronic pain of right knee [M25.561, G89.29] 6 MIXED HYPERLIPIDEMIA [E78.2] 12/31/2005 Essential hypertension [I10] 12/31/2005 Uncontrolled type 2 diabetes mellitus with micr*2009 Chronic bilateral low back pain with right-side*11/20/ 2012 Recurrent inguinal hernia [K40.91] 06/22/2012 DM (diabetes mellitus), type 2, uncontrolled, w*2014 Encounter Status:Closed by FIDE HUSSEIN on 01/07/21 CNPN on 12-31-2020 CNPN Telephone (FPWADS) [facility] FRANCISCO Grace ([id number]) 1940 [place] Date Time Provider Department 12/31/20 EMELYN GIRALDO FPMARGARET During your visit today, we recorded the following inf ormation about you: Kelvin Conn 12/31/2020 9:31 AM Signed Received update from [facility]. Placed in provider's inbo x for review. Route to MA Scanning Allergies As of Date: 12/31/2020 Noted Allergy Reactio n CHOLESTYRAMINE 03/30/2012 14 - Other: See Comments Comments: caused low blood sugar MOBIC (MELOXICAM) 05/21/2009 7 - Swelling 9 - Itching PRAVACHOL (PRAVASTATIN SODIUM) 12/22/2009 5 - Intolera nce Comments: Myalgias. Date Reviewed: 12/24/2020 Reviewed by: Curly Dennison [facility] - Fully Assessed Reason for Visit: Patient Update [1234] Cmt: [facility] Prescriptions as of 12/31/2020 - insulin glargine (BASAGLAR KWIKPEN U-100 INSULIN) 10 0 unit/mL (3 mL) Inject 30 Units subcutaneously every morning. - chlorthalidone (HYGROTON) 25 mg tablet Take 1 tablet by mouth once daily. - amLODIPine (NORVASC) 10 mg tablet Take 1 tablet by mouth once daily. - valsartan (DIOVAN) 320 mg tablet Take 1 tablet by mouth once daily. - metFORMIN ER (GLUCOPHAGE XR) 500 mg 24 hr tablet Take 2 tablets by mouth twice daily before meals. - Blood Pressure Monitor Use to check blood pressure daily. - Insulin Henderson, Disposabl e, (BD ULTRA-FINE SHEBA PEN NEEDLE) 32 gauge x /32 Use to inject insulin and Victoza, 2 injections per da y. - potassium chloride ER (KLOR-CON M20) 20 mEq tablet Take 1 tablet by mouth twice daily. - traMADol (ULTRAM) 50 mg tablet Take 50-100 mg by mouth every 6 hours as needed. - blood sugar diagnostic (ONETOUCH ULTRA TEST) test st rip Use to check blood sugar three times daily. - Lancets (ONETOUCH ULTRASOFT LANCETS) lancets Test blood sugar four times daily. Uncontrolled diabet es type 2 on insulin - latanoprost (XALATAN) 0.005 % ophthalmic solution Use 1 Drop in both eyes daily at bedtime. - therapeutic multivitamin ORAL Tab Take one(1) tablet daily. Problem List As Of Date 12/31/2020 Noted Resolved Chronic pain of right knee [M25.561, G89.29] 6 MIXED HYPERLIPIDEMIA [E78.2] 12/31/2005 Essential hypertension [I10] 12/31/2005 Uncontrolled type 2 diabetes mellitus with micr*2009 Chronic bilateral low back pain with right-side*2011 Recurrent inguinal hernia [K40.91] 06/22/2012 DM (diabetes mellitus), type 2, uncontrolled, w*2014 Encounter Status:Closed by KELVIN CONN on CNOV on 12-24-2020 CNOV Office Visit (PHMEWO) [facility] FRANCISCO Grace ([id number]) 1940 [facility] Date Time Provider Department 12/24/20 1:30 PM CURLY DENNISON SONU During your visit today, we recorded the following inf ormation about you: Pulse Blood pressure 70/minute 161/77 Curly Dennison [facility] 01/01/2021 4:10 PM Signed Primary Care Pharmacy Visit REASON FOR CONSULT: DM?and BP GOALS: A1c CONSULTING PROVIDER:??Emelyn Giraldo Date of Consult:?01/30/19 Francisco Thomas is a 80 year old male presenting for foll ow up visit in person. Patient consents to pharmacy collaborative pract ice agreement. . Last seen by PCP, Dr. Emelyn Giraldo MD on 06/24/20. At last PCP appt, pt had self-stopped Victoza and increased Lantus dose, his BP was elevated and he was encouraged to complete labs.?At??PharmD visit on?08/27,?BP was elevat ed so losartan was switched to valsartan.?At PharmD visit on?09/18,?patient noted his BP seemed better since switching to valsartan.?He admitted to no t doing great about limiting sodium/caffeine and sometimes misses amlodipi ne. PharmD advised he switch timing of amlodipine to AM and no other med rufus nges made but patient encouraged to work on lifestyle modifications. At last PharmD visit on 10/23, amlodipine was increased. At last PharmD visit on 11/27/20, pt was instructed to discontinue HCTZ, begin chlorthalidone 25 mg daily and decrease insulin glargine to 28 units daily. INTERIM HISTORY: Reports BP has been higher since switching from HCTZ t o chlorthalidone. Has complete ~2 weeks worth of C holrthalidone, has about ~2 weeks supply remaining. Has self increased insulin back to 30 units daily, no BG <70 mg/dL. Current DM Medications: Metformin ER 500mg tabs - 1000mg BID Insulin glargine (Basaglar) 28 units QAM - has increased back to 30 units once daily Current HTN Medications: Chlorthalidone 25mg daily?QAM Valsartan 320mg daily?at night Amlodipine 10mg daily?QAM Preventative Medications: ? On ALVIN/ARB: Yes ? On Statin: No - myalgias GLYCEMIC CONTROL: ? SMBG?s: Date Fasting AM 2 hr PP Before Lunch 2 hr PP Before Di nner 2 hr PP Bedtime 12/24 111 12/23 117 12/22 131 12/21 131 12/20 126 12/19 96 12/18 96 12/17 137 10/5 120 12/15 128 12/14 83 10 110 12/12 128 ? Hypoglycemia: denies Home readings: Date BP Pulse 12/20 153/73 72 12/17 154/72 70 12/16 154/74 69 12/15 162/77 72 12/14 154/74 67 11/26 129/68 82 11/21 131/71 83 ROS: ? Patient denies CP, SOB, JOHNSON, blurred vision, dizzines s or lightheadedness ? Patient denies nausea, vomiting, diarrhea, abdominal pain ? Patient denies symptoms of hypoglycemia (sweating, a nxiety, palpitations, hunger, and tremor) ? Patient denies symptoms of hyperglycemia (poly uria, polydipsia, polyphagia) ? Patient denies potential medication adverse effects DIET/EXERCISE/SOCIAL Hx: ? On most days has about 2 cups of caffeine per day MEDICATIONS: ? Pill bottles are not present. Adherence: denies missed doses Pharmacy:?[facility]? Rx coverage:?Medicare Affordability:?insulin and Victoza costly Diabetes supplies:?[employer] System:?none ACTIVE PROBLEM LIST Chronic Pain of Right Knee Mixed Hyperlipidemia Essential Hypertension Uncontrolled Type 2 Diabetes Mellitus With Microalbumi everton, With Long-Term Current Use of Insulin (Hcc) Chronic Bilateral Low Back Pain With Right-Sided Sciat ica Recurrent Inguinal Hernia Dm (Diabetes Mellitus), Type 2, Uncontrolled, With Gregory al Complications (Hcc) PAST MEDICAL HISTORY Diagnosis Date - Hypercholesterolemia - Hypertension - Type II or unspecified type diabetes mellitus withou t mention of complication, not stated as uncontrolled ALLERGIES Allergen Reactions - Cholestyramine Other: See Comments caused low blood sugar - Mobic [Meloxicam] Swelling, Itching - Pravachol [Pravasta* Intolerance Myalgias. Current Outpatient Medications Medication Sig - chlorthalidone (HYGROTON) 25 mg tablet Take 1 tablet by mouth once daily. - insulin glargine (BASAGLAR KWIKPEN U-100 INSUL IN) 100 unit/mL (3 mL) Inject 28 Units subcutaneously every morning. - amLODIPine (NORVASC) 10 mg tablet Take 1 tablet by m outh once daily. - valsartan (DIOVAN) 320 mg tablet Take 1 tablet by mo uth once daily. - metFORMIN ER (GLUCOPHAGE XR) 500 mg 24 hr tablet Denys e 2 tablets by mouth twice daily before meals. - Blood Pressure Monitor Use to check blood pressure d arsh. - Insulin Henderson, Disposabl e, (BD ULTRA-FINE SHEBA PEN NEEDLE) 32 gauge x 32 Use to inject insulin and Victoza, 2 injections per da y. - potassium chloride ER (KLOR-CON M20) 20 mEq tablet T yahir 1 tablet by mouth twice daily. - traMADol (ULTRAM) 50 mg tablet Take 50-100 mg by meg th every 6 hours as needed. - blood sugar diagnostic (ONETOUCH ULTRA TEST) test st rip Use to check blood sugar three times daily. - Toni (more content not included)... CNOV on 11-27-2020 CNOV Office Visit (MEO) [facility] RADHAFRANCISCO [facility]gowan ([id number]) 1940 [place] Date Time Provider Department 11/27/20 2:30 PM DIONE CHANG During your visit today, we recorded the following inf ormation about you: Pulse Blood pressure 73/minute 137/61 Dione Chang [facility] 11/27/2020 3:15 PM Signed Patient consents to pharmacy collaborative practice adriana. REASON FOR CONSULT: DM?and BP GOALS: A1c CONSULTING PROVIDER:?Dr.?Jeffery Giraldo Date of Consult:?01/30/19 Francisco Thomas is a 80 year old male presenting for foll ow up visit in person. Patient consents to pharmacy collaborative practice adriana. . Patient was last seen by PCP, Dr. Emelyn Giraldo MD on 06/24/20. Patient is presenting today for f/up pharmacotherapy management appointment for diabetes and HTN. At last PCP appt, pt had self- stopped Victoza and increased Lantus dose, his BP was elevated and he was encouraged to complete labs.?At??PharmD visit on?08/27,?BP was elevated so los cayetano was switched to valsartan. At PharmD visit on 09/18, patient noted his B P seemed better since switching to valsartan. He admitted to not doing great about limiting sodium/caffeine and sometimes misses amlodipine. Pharm D advised he switch timing of amlodipine to AM a nd no other med changes made but patient encouraged to work on lifestyle modifications. At last PharmD vis it on 10/23, amlodipine was increased. Subjective: HPI: Reports having low BGs in the afternoons before dinner and I have no idea why. This has happened 3 times in the past coup le weeks. One time did have a low BG in the morning after giving insulin. Took 1 glucose tab each time. Not sure if he had breakfast the morning he had a low BG. Not sure if had been more physically active. Still having some lower leg cramps in the calf and occ asional ankle. Started taking zinc and magnesium, hasn't had any cramps in th e past 3-4 days. Still doesn't think he is drinking sufficient water. Is drinking some Gatorade Zero. Current DM Medications: Metformin ER 500mg tabs - 1000mg BID Insulin glargine (Basaglar) 30 units QAM GLYCEMIC CONTROL: ? Glucometer present at visit: No ? SMBG?s: Date Fasting AM 11/27 136 127 131 161 107 117 117 130 187 121 136 107 137 119 ? Hypoglycemia: yes, had feelings of lows 3x in the pa st 2 weeks but didn't check BGs ? How corrected: 1 glucose tab Current HTN Medications: HCTZ 25mg daily?QAM Valsartan 320mg daily?at night Amlodipine 10mg daily QAM ? Home BP monitoring?:?yes Type of cuff:?arm cuff (has been compared to office reader, reads 10 pts higher) Home BP Log Date BP Pulse 11/26 129/68 82 9/10 131/71 83 9/7 129/73 89 9/6 150/72 66 9/5 147/74 66 9/4 140/85 71 9/2 157/76, 110/80 75 Preventative Medications: On ALVIN/ARB: Yes On Statin: No - myalgias ROS: ? Patient denies CP, SOB, JOHNSON, blurred vision, dizzines s or lightheadedness ? Patient denies symptoms of hypoglycemia (sweating, a nxiety, palpitations, hunger, and tremor) ? Patient denies symptoms of hyperglycemia (poly uria, polydipsia, polyphagia) ? Patient denies potential medication adverse effects MEDICATIONS: Pill bottles are not present Adherence: denies missed doses Pharmacy:?[facility]? Rx coverage:?Medicare Affordability:?insulin and Victoza costly Diabetes supplies:?[employer] System:?none Past medical, family and social history reviewed and u pdated. ACTIVE PROBLEM LIST Chronic Pain of Right Knee Mixed Hyperlipidemia Essential Hypertension Uncontrolled Type 2 Diabetes Mellitus With Microalbumi everton, With Long-Term Current Use of Insulin (Hcc) Chronic Bilateral Low Back Pain With Right-Sided Sciat ica Recurrent Inguinal Hernia Dm (Diabetes Mellitus), Type 2, Uncontrolled, With Gregory al Complications (Hcc) PAST MEDICAL HISTORY Diagnosis Date - Hypercholesterolemia - Hypertension - Type II or unspecified type diabetes mellitus withou t mention of complication, not stated as uncontrolled ALLERGIES Allergen Reactions - Cholestyramine Other: See Comments caused low blood sugar - Mobic [Meloxicam] Swelling, Itching - Pravachol [Pravasta* Intolerance Myalgias. Medication List Medication Directions Comments Action/Plan amLODIPine (NORVASC) 10 mg tablet Take 1 tablet by meg th once daily. Blood Pressure Monitor Use to check blood pressure arminda ly. blood sugar diagnostic (ONETOUCH ULTRA TEST) test stri p Use to check blood sugar three times daily. hydroCHLOROthiazide (HYDRODIURIL, ESIDRI X) 25 mg tablet Take 1 tablet by mouth once daily. insulin glargine (BASAGLAR KWIKPEN U-100 INSULIN) 100 unit/mL (3 mL) Inject 30 Units subcutaneously every morning. Insulin Henderson, Disposable, (BD ULTRA-FINE SHEBA PEN NEEDLE) 32 gauge x Use to inject insulin and Victoza, 2 injections per da y. Lancets (more content not included)... CNOV on 10-23-2020 CNOV Office Visit ([facility]) [facility] FRANCISCO THOMAS ([id number]) 1940 [place] Date Time Provider Department 10/23/20 3:00 PM DIONE CHANG During your visit today, we recorded the following inf ormation about you: Pulse Blood pressure 77/minute 156/68 Dione Chang [facility] 10/23/2020 4:17 PM Signed Patient consents to pharmacy collaborative practice [facility]. REASON FOR CONSULT: DM?and BP GOALS: A1c CONSULTING PROVIDER:??Emelyn Giraldo Date of Consult:?01/30/19 ? Francisco Thomas is a 80 year ol d male was last seen by PCP, Dr. Emelyn Giraldo MD on?06/24/2020. ? Patient is presenting today for f/up pharmacotherapy management appointment for diabetes. Patient is presenting today for?established? pharmacotherapy management appointment for diabetes and HTN. At last P CP appt, pt had self-stopped Victoza and increased Lantu s dose, his BP was elevated and he was encouraged to complete labs. ?Pt has followed with pharmacy in the past and here to re-establish care for DM and BP manag ement. At PharmD visit on 08/27, BP was elevated so losartan was switched to valsartan. At [facility] t PharmD visit on 09/18, patient noted his BP seemed better since switching to valsartan. He admitted to not doing great about limiti ng sodium/caffeine and sometimes misses amlodipine. No med changes made but patient encourag ed to work on lifestyle modifications. Subjective: Patient overall reports feel ing well. Is frustrated with technology issues with online newspaper. Patient admits that he is eating more ic e cream in the summer. Admits BGs tend to go up in the summer. Will usually have 1/2-1 scoops at night 2-3x/week. Patient has moved amlodipine to QAM and is not missing any doses. Has not noticed feeling any different. Not notic ing any dizziness or light-headedness. Not having any swelling of ankle or feet . He is happy with current BP control. Patient actively trying to c ut back on adding salt to food and when cooking. No change to caffeine consumption. Current HTN Medications: HCTZ 25mg daily?QAM Valsartan 320mg daily?at night Amlodipine 5mg daily QAM ? Home BP monitoring?: yes Type of cuff: arm cuff (has been compared to office reader, reads 10 pts higher) Home BP Log Date BP Pulse 10/22/20 136/86, 143/70, 142/69 71, 69, 70 Current DM Medications: Metformin ER 500mg tabs - 1000mg BID Insulin glargine (Basaglar) 30 units QAM GLYCEMIC CONTROL: ? Glucometer present at visit: No ? SMBG?s: Date Fasting AM 10/23 125 11 143 /10 111 /9 125 8 107 8/7 130 8/6 131 8/5 137 8/4 142 8/3 132 8/2 123 8/ 113 ? Hypoglycemia: none; lowest BG was 87 mg/dL Preventative Medications: On ALVIN/ARB: Yes On Statin: No - myalgias ROS: ? Patient denies CP, SOB, JOHNSON, blurred vision, dizzines s or lightheadedness ? Patient denies symptoms of hypoglycemia (sweating, a nxiety, palpitations, hunger, and tremor) ? Patient denies symptoms of hyperglycemia (poly uria, polydipsia, polyphagia) ? Patient denies potential medication adverse effects DIET/EXERCISE/SOCIAL Hx: ? Adding less sodium to food MEDICATIONS: Pill bottles are not present Adherence: denies missed doses Pharmacy: [facility] Rx coverage: Medicare Affordability: insulin and Victoza costly Diabetes supplies: One Touch Organization System: none ACTIVE PROBLEM LIST Chronic Pain of Right Knee Mixed Hyperlipidemia Essential Hypertension Uncontrolled Type 2 Diabetes Mellitus With Microalbumi everton, With Long-Term Current Use of Insulin (Hcc) Chronic Bilateral Low Back Pain With Right-Sided Sciat ica Recurrent Inguinal Hernia Dm (Diabetes Mellitus), Type 2, Uncontrolled, With Gregory al Complications (Hcc) PAST MEDICAL HISTORY Diagnosis Date - Hypercholesterolemia - Hypertension - Type II or unspecified type diabetes mellitus withou t mention of complication, not stated as uncontrolled ALLERGIES Allergen Reactions - Cholestyramine Other: See Comments caused low blood sugar - Mobic [Meloxicam] Swelling, Itching - Pravachol [Pravasta* Intolerance Myalgias. Medication List Medication Directions Comments Action/Plan amLODIPine (NORVASC) 5 mg tablet Take 1 tablet by mout h once daily. Blood Pressure Monitor Use to check blood pressure arminda ly. blood sugar diagnostic (ONETOUCH ULTRA TEST) test stri p Use to check blood sugar three times daily. hydroCHLOROthiazide (HYDRODIURIL, ESIDRI X) 25 mg tablet Take 1 tablet by mouth once daily. insulin glargine (BASAGLAR KWIKPEN U-100 INSULIN) 100 unit/mL (3 mL) Inject 30 Units subcutaneously every morning. Insulin Henderson, Disposable, (BD ULTRA-FINE SHEBA PEN NEEDLE) 32 gauge x 5/32 Use to inject insulin and Victoza, 2 injections per da y. Lancets (ONETOUCH ULTRASOFT LANCETS) lancets Test blood sugar four times daily. Uncontrolled diabetes type 2 on insulin latanoprost (XA (more content not included)... CNOV on 09-18-2020 CNOV Office Visit ([facility]) [facility] FRANCISCO THOMAS ([id number]) 1940 [facility] Time Provider Department 09/18/20 2:00 PM DIONE CHANG During your visit today, we recorded the following inf ormation about you: Pulse Blood pressure 71/minute 142/68 Dione Chang [facility] 09/18/2020 2:38 PM Signed Patient consents to pharmacy [facility]. REASON FOR CONSULT: DM?and BP GOALS: A1c CONSULTING PROVIDER:??Emelyn Giraldo Date of Consult:?01/30/19 ? Francisco D William is a 80 year ol d male was last seen by PCP, Dr. Emelyn Giraldo MD on 06/24/2020. Patient is presenting today for f/up pharmacotherapy management appointment for diabetes. Patient is presenting today for established pharmacotherapy management appointment for diabetes and HTN. At last P CP appt, pt had self-stopped Victoza and increased Lantu s dose, his BP was elevated and he was encouraged to complete labs. Pt has followed with pharmacy in the past and here to re-establish care for DM and BP management. At last PharmD visit on 08/27, BP was elevated so losartan was switched to valsartan. Subjective: Checking BP at home. States his meter is about 10 poin ts higher than office meter. He feels his BP has improved based on the readi ngs. Doesn't feel any different. Not experiencing any cough. No dizzin ess, light-headedness. No CP, JOHNSON, SOB, or heart palpitations. Current HTN Medications: HCTZ 25mg daily in the morning Valsartan 320mg daily?at night Amlodipine 5mg daily?at noon Home BP monitoring?: yes Type of cuff: arm cuff (has been compared to office reader, reads 10 pts higher) Home BP Log Date BP Pulse 09/17 141/78 72 139/64 64 142/66 66 08/30 185/94 80 186/93 83 186/91 77 18 140/71 72 131/69 68 131/67 72 Current DM Medications: Metformin ER 500mg tabs - 1000mg BID Insulin glargine (Basaglar) 30 units QAM GLYCEMIC CONTROL: ? Glucometer present at visit: No ? SMBG?s: reports BGs are doing fine, a little higher in the summer since eating more ice cream; FBGs usually 120-135 mg/dL ? Hypoglycemia: none Preventative Medications: On ALVIN/ARB: Yes On Statin: No ROS: ? Patient denies CP, SOB, JOHNSON, blurred vision, dizzines s or lightheadedness ? Patient denies symptoms of hypoglycemia (sweating, a nxiety, palpitations, hunger, and tremor) ? Patient denies symptoms of hyperglycemia (poly uria, polydipsia, polyphagia) ? Patient denies potential medication adverse effects DIET/EXERCISE/SOCIAL Hx: - Lunch: eats lunchmeat sandwich 3 days/week; other da ys eats peanut butter sandwich MEDICATIONS: Pill bottles are not present Adherence: reports missed doses of lunch time amlodipine because pills fall out of pocket; doesn't happen often Pharmacy: [facility] Rx coverage: Medicare Affordability: insulin and Victoza costly Diabetes supplies: One Touch Organization System: none ACTIVE PROBLEM LIST Chronic Pain of Right Knee Mixed Hyperlipidemia Essential Hypertension Uncontrolled Type 2 Diabetes Mellitus With Microalbumi everton, With Long-Term Current Use of Insulin (Hcc) Chronic Bilateral Low Back Pain With Right-Sided Sciat ica Recurrent Inguinal Hernia Dm (Diabetes Mellitus), Type 2, Uncontrolled, With Gregory al Complications (Hcc) PAST MEDICAL HISTORY Diagnosis Date - Hypercholesterolemia - Hypertension - Type II or unspecified type diabetes mellitus withou t mention of complication, not stated as uncontrolled ALLERGIES Allergen Reactions - Cholestyramine Other: See Comments caused low blood sugar - Mobic [Meloxicam] Swelling, Itching - Pravachol [Pravasta* Intolerance Myalgias. Medication List Medication Directions Comments Action/Plan amLODIPine (NORVASC) 5 mg tablet Take 1 tablet by mout h once daily. Blood Pressure Monitor Use to check blood pressure arminda ly. blood sugar diagnostic (WhenU.comTOUCH ULTRA TEST) test stri p Use to check blood sugar three times daily. hydroCHLOROthiazide (HYDRODIURIL, ESIDRI X) 25 mg tablet Take 1 tablet by mouth once daily. insulin glargine (BASAGLAR KWIKPEN U-100 INSULIN) 100 unit/mL (3 mL) Inject 30 Units subcutaneously every morning. Insulin Henderson, Disposable, (BD ULTRA-FINE SHEBA PEN NEEDLE) 32 gauge x 5/32 Use to inject insulin and Victoza, 2 injections per da y. Lancets (Tourvia.meUCH ULTRASOFT LANCETS) lancets Test blood sugar four times daily. Uncontrolled diabetes type 2 on insulin latanoprost (XALATAN) 0.005 % ophthalmic solution Use 1 Drop in both eyes daily at bedtime. metFORMIN ER (GLUCOPHAGE XR) 500 mg 24 h r tablet Take 2 tablets by mouth twice daily before meals. potassium chloride ER (KLOR- CON M20) 20 mEq tablet Take 1 tablet by mouth twice daily. therapeutic multivitamin ORAL Tab Take one(1) tablet d aily. traMADol (ULTRAM) 50 mg tabl et Take 50-100 mg by mouth every 6 hours as needed. valsartan (DIOVAN) 320 mg table (more content not incl uded)... CNOV on 08-27-2020 CNOV Office Visit ([facility]) [facility] FRANCISCO THOMAS ([id number]) 1940 [place] Date Time Provider Department 08/27/20 11:30 AM CURLY DENNISON During your visit today, we recorded the following inf ormation about you: Pulse Blood pressure 66/minute 165/79 Curly Dennison [facility] 09/11/2020 2:04 PM Signed Patient consents to pharmacy collaborative practice [facility]. REASON FOR CONSULT: DM?and BP GOALS: A1c CONSULTING PROVIDER:??Emelyn Giraldo Date of Consult:?01/30/19 Francisco Thomas is a 80 year ol d male was last seen by PCP, Dr. Emelyn Giraldo MD on 06/24/2020. Subjective: Patient is presenting today for established pharmacoth erapy management appointment for diabetes. At last PCP appt, pt had dany f-stopped Victoza and increased Lantus dose, his BP was elevated and he was encouraged to complete labs. Pt has followed with pharmacy in the past and here to re-establish care for DM and BP management. INTERIM HISTORY: Pt states he did not have ADEs to Victoza, self-stoppe d when he ran out of refill. Has increased insulin to 30 units daily. Recently started monitoring BP at home since last PCP visit since BP was elevated at that visit. SMBG?s: Date Fasting AM 2 hr PP Before Lunch 2 hr PP Before Di nner 2 hr PP Bedtime 08/27 152 6/15 101 6/14 136 6/13 115 6/12 126 6/11 105 6/10 123 6/9 154 6/8 130 6/7 97 6/6 119 6/5 95 6/4 119 6/3 88 Hypoglycemia: denies ? Home readings: Date BP Pulse 08/23 156/77 129/75 71 72 /11 166/83 69 6/9 170/88 168/85 69 69 6/8 180/88 168/88 170/86 69 69 69 Current DM Medications: Metformin 500 mg- 2 tablets in the morning and 2 in ev ening with meals? Insulin glargine?28?units daily in the morning Current HTN Medications: HCTZ 25 mg once daily in the morning Losartan 100 mg once daily?at night Amlodipine 5 mg once daily?at noon Preventative Medications: ? On ALVIN/ARB:?Yes ? On Statin:?No, not indicated due to age ? On ASA:?No ? MEDICATIONS:?- ? Adherence:?denies?missed doses. ? Pharmacy:?[facility]? Rx coverage:?Medicare ? Affordability:?insulin/victoza more costly? ? Diabetes supplies:?Onetouch? ? Organization System:?none ACTIVE PROBLEM LIST Chronic Pain of Right Knee Mixed Hyperlipidemia Essential Hypertension Uncontrolled Type 2 Diabetes Mellitus With Microalbumi everton, With Long-Term Current Use of Insulin (Hcc) Chronic Bilateral Low Back Pain With Right-Sided Sciat ica Recurrent Inguinal Hernia Dm (Diabetes Mellitus), Type 2, Uncontrolled, With Gregory al Complications (Hcc) PAST MEDICAL HISTORY Diagnosis Date - Hypercholesterolemia - Hypertension - Type II or unspecified type diabetes mellitus withou t mention of complication, not stated as uncontrolled ALLERGIES Allergen Reactions - Cholestyramine Other: See Comments caused low blood sugar - Mobic [Meloxicam] Swelling, Itching - Pravachol [Pravasta* Intolerance Myalgias. Current Outpatient Medications Medication Sig - insulin glargine (BASAGLAR KWIKPEN U-100 INSUL IN) 100 unit/mL (3 mL) Inject 28 Units subcutaneously every morning. - hydroCHLOROthiazide (HYDRODIURIL, ESIDRIX) 25 mg tab let Take 1 tablet by mouth once daily. - metFORMIN ER (GLUCOPHAGE XR) 500 mg 24 hr tablet Denys e 2 tablets by mouth twice daily before meals. - amLODIPine (NORVASC) 5 mg tablet Take 1 tablet by mo h once daily. - losartan (COZAAR) 100 mg tablet Take 1 tablet by meg once daily. - Blood Pressure Monitor Use to check blood pressure d aily. - Insulin Henderson, Disposabl e, (BD ULTRA-FINE SHEBA PEN NEEDLE) 32 gauge x Use to inject insulin and Victoza, 2 injections per da y. - potassium chloride ER (KLOR-CON M20) 20 mEq tablet T yahir 1 tablet by mouth twice daily. - traMADol (ULTRAM) 50 mg tablet Take 50-100 mg by meg th every 6 hours as needed. - blood sugar diagnostic (ONETOUCH ULTRA TEST) test st rip Use to check blood sugar three times daily. - Lancets (ONETOUCH ULTRASOFT LANCETS) lancets Test bl ood sugar four times daily. Uncontrolled diabetes type 2 on insulin - latanoprost (XALATAN) 0.005 % ophthalmic solution Us e 1 Drop in both eyes daily at bedtime. - therapeutic multivitamin ORAL Tab Take one(1) tablet daily. No current facility-administered medications for this visit. Objective: VITALS: BP 165/79 (BP Site: Left Arm, BP Position: Sit ting, BP Cuff Size: Regular Adult) Pulse 66 BP Chris #1: 173/81 pulse 66 BP Chris #2: 163/79 pulse 66 BP Chris #3: 159/78 pulse 65 BP Chris #4: 167/82 pulse 67 BP Chris #5: 166/79 pulse 66 BP Chris #6: 170/79 pulse 66 BP Chris Av/79 pulse 66 Last 3 Encounter BP Readings: Date: BP: 08/25/2020 180/74 06/24/2020 149/62 05/09/2019 124/80 Wt: 79.8 kg (176 lb) BMI: 23.87 kg/(m2) LABS Lab Results (more content not included)... CNNURSE on 08-25-2020 [facility] Nurse Visit ([facility]) Jesse Arizmendi nd FRANCISCO Grace ([id number]) 1940 [facility] Date Time Provider Department 08/25/20 11:15 AM [place] NURSE FAMPWS During your visit today, we recorded the following inf ormation about you: Pulse Blood pressure 72/minute 180/74 Ivett Laboy LPN 08/25/2020 11:48 AM Signed Manual Readin/82 Pulse: 72 Reason for blood pressure check - Last BP elevated Patient is: Taking medication as prescribed Yes, patient takes med s at noon and evening Took medication today No If no, date medication last taken Patient takes meds at noon and evening Experiencing side effects No Recommendations Continue taking medications as p rescribed, Follow recommended diet instructions, Continue recommended activity and A void excessive salt Follow-up Yes follow up with Curly 08/27/2020 Pt has been identified by name and birthdate: Yes Allergies reviewed: Yes Latex allergy: no. Medication - prescribed and OTC reviewed and updated: Yes Do you need any prescription refills prior to your nex t visit: No Health Maintenance: Reviewed and up to date Patient brought his own BP monitor today off by 10mmg, pulse was same Referring Provider: EMELYN GIRALDO [[id number]] Allergies As of Date: 08/25/2020 Noted Allergy Reactio n CHOLESTYRAMINE 03/30/2012 14 - Other: See Comments Comments: caused low blood sugar MOBIC (MELOXICAM) 05/21/2009 7 - Swelling 9 - Itching PRAVACHOL (PRAVASTATIN SODIUM) 12/22/2009 5 - Intolera nce Comments: Myalgias. Date Reviewed: 08/25/2020 Reviewed by: Ivett Laboy LPN - Fully Assessed Visit Diagnosis:Hypertension, essential [I10] Prescriptions as of 08/25/2020 Sig: GERARDO BASILIO U-100 INSULI* Inject 28 Units subcuta neousl* HYDROCHLOROTHIAZIDE 25 MG TAB* Take 1 tablet by mouth once d* METFORMIN ER 500 MG TABLET,EX* Take 2 tablets by mouth twice* AMLODIPINE 5 MG TABLET Take 1 tablet by mouth once d* LOSARTAN 100 MG TABLET Take 1 tablet by mouth once d* BLOOD PRESSURE MONITOR KIT Use to check blood pressure d* PEN NEEDLE, DIABETIC 32 GAUGE* Use to inject insulin a nd Alfie* POTASSIUM CHLORIDE ER 20 MEQ * Take 1 tablet by mouth twice * TRAMADOL 50 MG TABLET Take 50-100 mg by mouth every* ONETOUCH ULTRA TEST STRIPS Use to check blood sugar th re* LANCETS Test blood sugar four times d* LATANOPROST 0.005 % EYE DROPS Use 1 Drop in both eyes daily* * THERAPEUTIC MULTIVITAMIN TABL* Take one(1) tablet da choco. Problem List As Of Date 08/25/2020 Noted Resolved Chronic pain of right knee [M25.561, G89.29] 6 MIXED HYPERLIPIDEMIA [E78.2] 12/31/2005 Essential hypertension [I10] 12/31/2005 Uncontrolled type 2 diabetes mellitus with micr*2009 Chronic bilateral low back pain with right-side*2011 Recurrent inguinal hernia [K40.91] 06/22/2012 DM (diabetes mellitus), type 2, uncontrolled, w*2014 Encounter Status:Closed by IVETT LABOY LPN on 08/25/20 OLEN on 08-25-2020 OLEN Telephone (CHINEDU) [facility] FRANCISCO THOMAS ([id number]) 1940 [facility] Date Time Provider Department 08/25/20 EMELYN GIRALDO During your visit today, we recorded the following inf ormation about you: Ivett Laboy LPN 08/25/2020 11:27 AM Signed Manual Readin/82 Pulse: 72 Reason for blood pressure check - Last BP elevated Patient is: Taking medication as prescribed Yes, patient takes med s at noon and evening Took medication today No If no, date medication last taken Patient takes meds at noon and evening Experiencing side effects No Recommendations Continue taking medications as p rescribed, Follow recommended diet instructions, Continue recommended activity and A void excessive salt Follow-up Yes follow up with Curly 08/27/2020 Pt has been identified by name and birthdate: Yes Allergies reviewed: Yes Latex allergy: no. Medication - prescribed and OTC reviewed and updated: Yes Do you need any prescription refills prior to your nex t visit: No Health Maintenance: Reviewed and up to date Emelyn Giraldo MD 08/26/2020 1:41 PM Signed Please keep appointment with pharmacist, Dr Giraldo will review bp with Her and consider increase in meds. MD Curly Laird, [facility] 08/27/2020 12:13 PM Signed Patient seen in office for pharmacy visit today. Since BP was elevated, losartan was switched to Valsartan 320 mg daily. Will follow up for BP recheck on 09/18. If BP elevated at that time can consider switching HCTZ to chlorthalidone 25 mg d aily or increasing amlodipine to 10 mg daily. Thanks, Curly Dennison, PharmD, BCACP Primary Care Clinical Pharmacist [facility] Emelyn Giraldo MD 08/27/2020 1:12 PM Signed Noted. Will watch for f/u bp checks. Emelyn Giraldo MD Allergies As of Date: 08/25/2020 Noted Allergy Reactio n CHOLESTYRAMINE 03/30/2012 14 - Other: See Comments Comments: caused low blood sugar MOBIC (MELOXICAM) 05/21/2009 7 - Swelling 9 - Itching PRAVACHOL (PRAVASTATIN SODIUM) 12/22/2009 5 - Intolera nce Comments: Myalgias. Date Reviewed: 08/25/2020 Reviewed by: Ivett Laboy LPN - Fully Assessed Reason for Visit: Allied Health Visit [5] Cmt: please review bp readings - elevated pettys Curly Prescriptions as of 08/25/2020 Sig: HYDROCHLOROTHIAZIDE 25 MG TAB* Take 1 tablet by mouth once d* METFORMIN ER 500 MG TABLET,EX* Take 2 tablets by mouth twice* X BASAGLAR KWIKPEN U-100 INSULI* Inject 28 Units subcu taneousl* AMLODIPINE 5 MG TABLET Take 1 tablet by mouth once d* X LOSARTAN 100 MG TABLET Take 1 tablet by mouth once d * BLOOD PRESSURE MONITOR KIT Use to check blood pressure d* PEN NEEDLE, DIABETIC 32 GAUGE* Use to inject insulin a nd Alfie* POTASSIUM CHLORIDE ER 20 MEQ * Take 1 tablet by mouth twice * TRAMADOL 50 MG TABLET Take 50-100 mg by mouth every* ONETOUCH ULTRA TEST STRIPS Use to check blood sugar th re* LANCETS Test blood sugar four times d* LATANOPROST 0.005 % EYE DROPS Use 1 Drop in both eyes daily* * THERAPEUTIC MULTIVITAMIN TABL* Take one(1) tablet da choco. Problem List As Of Date 08/25/2020 Noted Resolved Chronic pain of right knee [M25.561, G89.29] 6 MIXED HYPERLIPIDEMIA [E78.2] 12/31/2005 Essential hypertension [I10] 12/31/2005 Uncontrolled type 2 diabetes mellitus with micr*2009 Chronic bilateral low back pain with right-side*2011 Recurrent inguinal hernia [K40.91] 06/22/2012 DM (diabetes mellitus), type 2, uncontrolled, w*2014 Encounter Status:Closed by MILKA HENRIQUEZ MA on 08/28/20 Albumin/Creat Ratio on 06-24-2020 Albumin Urine Random 133.3 mg/L Normal [facility] Comment on above: Performed By: #### LIPB, CMP , UACR, HBA1C ####[facility] [place], [place] [phone] Albumin/Creat Ratio 65 mg/g High <30 [facility] Comment on above: Result Comment: Adult Male a nd Female Nephrotic Criteria: <30 mg/g is considered chantelle l to mildly increased 30-300 mg/g is considered mo derately increased >300 mg/g is considered danielle rely increased KDIGO. (2013). KDIGO 2012 Cl inical Practice Guideline for the Evaluation and Management of Chronic Kidney Disease. Official Journal of the International Society of Nephrology, 3(1), 1-150. Performed By: #### LIPB, CMP , UACR, HBA1C ####[facility] [address] [place], [place] [phone] Creatinine,Urine,Ran 205.5 mg/dL Normal 20-300 [facility] Comment on above: Performed By: #### LIPB, CMP , UACR, HBA1C ####[facility] [address] [place], [place] [phone] CNOV on 06-24-2020 CNOV Office Visit ([facility]) [facility] FRANCISCO THOMAS ([id number]) 1940 [place] Date Time Provider Department 06/24/20 2:00 PM EMELYN GIRALDO During your visit today, we recorded the following inf ormation about you: Temperature Pulse Blood pressure Weight 98.2 degrees 70/minute 149/62 79.8 kg Height 1.829 m Emelyn Giraldo 07/01/2020 11:02 AM Addendum CHIEF COMPLAINT Patient presents with: Follow Up: diabetes HISTORY OF PRESENT ILLNESS Francisco Thomas is a 79 year old male who presents here t [facility] for management of multiple medical issues. I last saw this patient on . Diabetes Patient has improve diet patterns Stopped taking VICTOZA for one month Increased his insulin glargine from 25 to 28 units Still taking and tolerating metformin ER Denies experiencing any hypoglycemic episodes HTN BP elevated on arrival today at 149/62, 134/64 on repe at. Taking and tolerating medications as prescribed. No ad verse side effects to medication. Base of L Thumb Jammed his thumb No issues with range of movement Counseled on newest information pertaining to COVID-19 vaccinations. Past medical history, appointments, medications, aller gies reviewed. REVIEW OF SYSTEMS Pertinent positives/ negatives: General: Feels well, no weight changes, fever, chills. Endo: +DM HEENT: No sinus congestion, earache, sore throat. Cardiac: No chest pain, palpitations Resp: No cough, wheeze, shortness of breath GI: No reflux symptoms, food intolerance, bowel change s. : No urinary frequency, dysuria. MS: No pain or joint complaints. PAST MEDICAL HISTORY PAST MEDICAL HISTORY Diagnosis Date - Hypercholesterolemia - Hypertension - Type II or unspecified type diabetes mellitus withou t mention of complication, not stated as uncontrolled PHYSICAL EXAMINATION BP 149/62 Pulse 70 Temp 36.8 ?C (98.2 ?F) (Tempora l) Ht 182.9 cm (6') Wt 79.8 kg (176 lb) BMI 23.87 kg/m? Repeat BP: 134/64 General: Alert, well developed, well nourished, no dis tress, pleasant and cooperative. Heart: Regular rate and rhyt hm. Normal S1 and S2. No murmurs, rubs, or gallops. Lungs: Clear to auscultation bilaterally . No respiratory distress. No wheezes, rales, or rhonchi. 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 Due for labs. Plan: COMP METABOLIC PANEL, LIPID PANEL BASIC, HGB A1C , ALBUMIN/CREAT RATIO RND UR -insulin glargine (BASAGLAR KWIKPEN U-100 INSULIN) 100 unit/mL (3 mL) (refilled) -metFORMIN ER (GLUCOPHAGE XR) 500 mg 24 hr tablet (ref illed) (Z78.9) Statin intolerance Comment: No longer on statins. Previous symptoms of mu scle cramps and aches. Plan: continue current regimen (I10) Essential hypertension Comment: slightly elevated bp in office today. Plan: -hydroCHLOROthiazide (HYDRODIURIL, ESIDRIX) 25 m g tablet (refilled) -continue on current regimen Signed Prescriptions Disp Refills insulin glargine (BASAGLAR KWIKPEN U-100 INSULIN ) 100 unit/mL (3 mL) 15 Pen 3 Sig: Inject 28 Units subcutaneously every morning. RAI: No hydroCHLOROthiazide (HYDRODIURIL, ESIDRIX) 25 mg table t 90 tablet 3 Sig: Take 1 tablet by mouth once daily. RAI: No metFORMIN ER (GLUCOPHAGE XR) 500 mg 24 hr tablet 360 t ablet 3 Sig: Take 2 tablets by mouth twice daily before meals. RAI: No RTO: Routine follow up in 6 months. Scribe Attestation: By signing my name below, IGrecia, attest that this documentation has been prepared under the direction and in the pre sence of Butch Giraldo M.D. Electronically Signed: Eleazar Alamo. June 1:05 PM . Provider Attestation: Emelyn Howe MD, personally performed the servic es described in this documentation. All medical record entries made by the scribe were at my direction and in my presence. I have reviewed the nima t and discharge instructions (if applicable) and agree that the record reflects my personal performance and is accurate and complete. Electronical ly Signed: Emelyn Giraldo MD. July 01, 2020 11:02 AM Fide Hussein 06/24/2020 2:51 PM Signed Venipuncture performed to left antecubital. Numb er of tubes collected: 1 gold and 1 lavender. Referring Provider: SELF [200] Allergies As of Date: 06/24/2020 (more content not inc luded)... Comp Metabolic Panel on 06-24-2020 Albumin [Mass/Vol] 4.3 g/dL Normal 3.9-4.9 [facility] Comment on above: Performed By: #### LIPB, CMP , UACR, HBA1C ####[facility] [address] [place], [place] [phone] ALP [Catalytic activity/Vol] 55 U/L Normal 38-113 [facility] Comment on above: Performed By: #### LIPB, CMP , UACR, HBA1C ####[facility] [address] [place], [place] [phone] ALT [Catalytic activity/Vol] 16 U/L Normal 10-54 [facility] Comment on above: Performed By: #### LIPB, CMP , UACR, HBA1C ####[facility] [address] [place], [place] [phone] Anion gap [Moles/Vol] 12 mmol/L Normal 9-18 [facility] Comment on above: Performed By: #### LIPB, CMP , UACR, HBA1C ####[facility] [place] [place] [phone] AST [Catalytic activity/Vol] 18 U/L Normal 14-40 [facility] Comment on above: Performed By: #### LIPB, CMP , UACR, HBA1C ####[facility] [place] [place] [phone] Bilirubin [Mass/Vol] 0.3 mg/dL Normal 0.2-1.3 [facility] Comment on above: Performed By: #### LIPB, CMP , UACR, HBA1C ####[place] [address] [place] [phone] Calcium [Mass/Vol] 9.5 mg/dL Normal 8.5-10.2 [facility] Comment on above: Performed By: #### LIPB, CMP , UACR, HBA1C ####[place] [address] [place] [phone] Chloride [Moles/Vol] 100 mmol/L Normal 97-105 [facility] Comment on above: Performed By: #### LIPB, CMP , UACR, HBA1C ####[facility] [place] [place] [phone] CO2 [Moles/Vol] 31 mmol/L High 22-30 [facility] Comment on above: Performed By: #### LIPB, CMP , UACR, HBA1C ####[facility] [place] [place] [phone] Creatinine [Mass/Vol] 1.09 mg/dL Normal 0.73-1.22 [facility] Comment on above: Performed By: #### LIPB, CMP , UACR, HBA1C ####[facility] [place] [place] [phone] eGFR- Amer. >60 Normal [facility] Comment on above: Performed By: #### LIPB, CMP , UACR, HBA1C ####[facility] [address] [employer] [employer] [place], [place] [phone] eGFR-All Other Races >[address] [facility] Comment on above: Result Comment: eGFR (Estima pilo GFR) Units of measure: mL/min/1.73 meters squared eGFR is derived from the ree xpressed MDRD Study equation using the following parameters: serum creatinine, age, gender and race. The creatinine assay has been calibrated to be traceable to IDMS. An eGFR <60 mL/min/1.73m2 fo r >3 months is consistent with chronic kidney disease. Refer to KDOQI guidelines for clinical interpretation. In patients with unstable re nal function, e.g. those with acute kidney injury, the eGFR may not accurately reflect actual GFR. Performed By: #### LIPB, CMP , UACR, HBA1C ####[facility] [address] [employer] SystemsS[place], [place] [phone] Glucose [Mass/Vol] 135 mg/dL High 74-99 [facility] Comment on above: Result Comment: The [place] Diabetes Association (ADA) provides guidance for cutoff values for fasting glucose and random glucose. The ADA defines fasting as no caloric intake for at least 8 hours. Fas ting plasma glucose results between 100 to 125 mg/dL indicate increased risk for diabetes (prediabetes). Fasting plasma glucose resul ts greater than or equal to 126 mg/dL meet the criteria for diagnosis of diabetes. In the absence of unequivocal hyperglycemia, results should be confirmed by repeat testing. In a patient with classic s ymptoms of hyperglycemia or hyperglycemic crisis, random plasma glucose results greater than or equal to 200 mg/dL meet the criteria for diagnosis of diabetes. Reference: Standards of [facility] Care in Diabetes 2016, [place] Diabetes Association. Diabetes Care. 2016.39(Suppl 1). Performed By: #### LIPB, CMP , UACR, HBA1C ####[facility] [address] [place], [place] [phone] Potassium [Moles/Vol] 4.7 mmol/L Normal 3.7-5.1 [facility] Comment on above: Performed By: #### LIPB, CMP , UACR, HBA1C ####[facility] [place] [place], [place] [phone] Protein [Mass/Vol] 6.6 g/dL Normal 6.3-8.0 [facility] Comment on above: Performed By: #### LIPB, CMP , UACR, HBA1C ####[place] [address] [place] [phone] Sodium [Moles/Vol] 143 mmol/L Normal 136-144 [facility] Comment on above: Performed By: #### LIPB, CMP , UACR, HBA1C ####[place] [address] [place], [place] [phone] Urea nitrogen [Mass/Vol] 22 mg/dL Normal 9-[address] [facility] Comment on above: Performed By: #### LIPB, CMP , UACR, HBA1C ####[facility] [place] [place], [place] [phone] Hemoglobin A1c on 06-24-2020 Glucose [Mass/Vol] 146 mg/dL Normal [facility] Comment on above: Result Comment: eAG: (Estima pilo average glucose) is a calculated value from HgbA1c and is rep resentative of the average blood glucose level in the last 2- 3 month period. Performed By: #### LIPB, CMP , UACR, HBA1C ####[place] [address] [place], [place] [phone] HbA1c (Bld) [Mass fraction] 6.7 % High 4.3-5.6 [facility] Comment on above: Result Comment: [place] Jolynn betes Association guidelines indicate that patients with HgbA1c in the range 5.7-6.4% are at increased risk for development of diab etes, and intervention by lifestyle modification may be benefici al. HgbA1c greater or equal to 6.5% is considered diagnostic of jolynn betes. Performed By: #### LIPB, CMP , UACR, HBA1C ####[facility] [address] [place], [place] [phone] Lipid Panel, Basic on 06-24-2020 Cholesterol [Mass/Vol] 205 mg/dL High <200 [facility] Comment on above: Result Comment: <200 mg/dL, Desirable 200-239 mg/dL, Borderline hi gh >239 mg/dL, High Performed By: #### LIPB, CMP , UACR, HBA1C ####[facility] [place] [place], [place] [phone] Cholesterol in HDL [Mass/Vol] 38 mg/dL Low >39 [facility] Comment on above: Result Comment: 40-59 mg/dL, Acceptable >59 mg/dL, High: Negative ri sk factor for coronary heart disease <40 mg/dL, Low: Positive ris k factor for coronary heart disease Performed By: #### LIPB, CMP , UACR, HBA1C ####[facility] [place] [place], [place] [phone] Cholesterol in LDL [Mass/Vol] 132 mg/dL High <100 [facility] Comment on above: Result Comment: <100 mg/dL, Optimal 100-129 mg/dL, Near optimal/ above optimal 130-159 mg/dL, Borderline hi gh 160-189 mg/dL, High >189 mg/dL, Very high Secondary prevention optimal LDL Cholesterol levels are recommended to be < 70 mg/dL Performed By: #### LIPB, CMP , UACR, HBA1C ####[facility] [place] [place], [place] [phone] Fasting Time Unknown Normal [facility] Comment on above: Performed By: #### LIPB, CMP , UACR, HBA1C ####[facility] [place] [place], [place] [phone] LDL:HDL Ratio 3.47 High <2.54 [facility] Comment on above: Result Comment: Reference: 1. National Cholesterol Educ ation Program ATP III Guideline At-A-Glance Quick Desk Reference: National Heart, Lung, and Blood [place]. National Institutes of Health. 2001: NIH Publication No. 01-3305. 2. An International Atherosc lerosis Society position paper: global recommendations for the management of dyslipidemia: executive summary, Atherosclerosis. 2014: 232(2):410-413. Performed By: #### LIPB, CMP , UACR, HBA1C ####[facility] [place] [place], [place] [phone] Non HDL Cholesterol 167 mg/dL High <130 [facility] Comment on above: Result Comment: <130 mg/dL, Optimal 130-159 mg/dL, Near optimal/ above optimal 160-189 mg/dL, Borderline hi gh 190-219 mg/dL, High >219 mg/dL, Very high Secondary prevention optimal non HDL Cholesterol levels are recommended to be < 100 mg/dL Performed By: #### LIPB, CMP , UACR, HBA1C ####[facility] [place] [place], [place] [phone] TC:HDL Ratio 5.39 High <5.10 [facility] Comment on above: Performed By: #### LIPB, CMP , UACR, HBA1C ####[place] [address] [place] [phone] Triglyceride [Mass/Vol] 177 mg/dL High <150 [facility] Comment on above: Result Comment: <150 mg/dL, Normal 150-199 mg/dL, Borderline hi gh 200-499 mg/dL, High >499 mg/dL, Very high Performed By: #### LIPB, CMP , UACR, HBA1C ####[facility] [place] [place], [place] [phone] VLDL Cholesterol 35 mg/dL High <30 [facility] Comment on above: Performed By: #### LIPB, CMP , UACR, HBA1C ####[facility] [place] [place], [place] [phone] OBSOLETE on 05-29-2020 OBSOLETE Refill (PHMEWO) [facility] FRANCISCO THOMAS ([id number]) 1940 [address] Date Time Provider Department 05/29/20 EMELYN GIRALDO During your visit today, we recorded the following inf ormation about you: Steve Boyer Ma 05/29/2020 3:00 PM Signed Patient has been identified by name and date of : Yes Pending Prescriptions Disp Refills AMLODIPINE 5 MG TABLET 90 tablet 2 Sig: Take 1 tablet by mouth once daily. RAI: No RX INSTRUCTIONS: Patient aware RX will be sent to pharmacy. No need to notify patient. Steve Giraldo MD 05/29/2020 4:51 PM Signed The following approved medic ation requests have been transmitted electronically. Appt with Dr Giraldo due. Signed Prescriptions Disp Refills amLODIPine (NORVASC) 5 mg tablet 90 tablet 2 Sig: Take 1 tablet by mouth once daily. RAI: No Authorizing Provider: EMELYN GIRLADO MD Denise Swanson [facility] 06/03/2020 12:27 PM Signed Patient is scheduled on 06/24 with ppc Allergies As of Date: 05/29/2020 Noted Allergy Reactio n CHOLESTYRAMINE 03/30/2012 14 - Other: See Comments Comments: caused low blood sugar MOBIC (MELOXICAM) 05/21/2009 7 - Swelling 9 - Itching PRAVACHOL (PRAVASTATIN SODIUM) 12/22/2009 5 - Intolera nce Comments: Myalgias. Date Reviewed: 01/30/2019 Reviewed by: Rosy Fleming Ma - Fully Assessed Reason for Visit: Refill Request [94] Visit Diagnosis:Essential hypertension [I10] Order(s):amLODIPine (NORVASC) 5 mg tabletTake 1 tablet by mouth once daily.Disp: 90 tabletRfl: 2 Prescriptions as of 05/29/2020 Sig: AMLODIPINE 5 MG TABLET Take 1 tablet by mouth once d* LOSARTAN 100 MG TABLET Take 1 tablet by mouth once d* BLOOD PRESSURE MONITOR KIT Use to check blood pressure d* BASAGLAR KWIKPEN U-100 INSULI* Inject 25 Units subcuta neousl* PEN NEEDLE, DIABETIC 32 GAUGE* Use to inject insulin a nd Alfie* HYDROCHLOROTHIAZIDE 25 MG TAB* Take 1 tablet by mouth once d* POTASSIUM CHLORIDE ER 20 MEQ * Take 1 tablet by mouth twice * LIRAGLUTIDE 0.6 MG/0.1 ML (18* Inject 1.2 mg subcutane ously * TRAMADOL 50 MG TABLET Take 50-100 mg by mouth every* ONETOUCH ULTRA TEST STRIPS Use to check blood sugar th re* METFORMIN ER 500 MG TABLET,EX* Take 2 tablets by mouth twice* LANCETS Test blood sugar four times d* LATANOPROST 0.005 % EYE DROPS Use 1 Drop in both eyes daily* * THERAPEUTIC MULTIVITAMIN TABL* Take one(1) tablet da choco. Problem List As Of Date 05/29/2020 Noted Resolved Chronic pain of right knee [M25.561, G89.29] 6 MIXED HYPERLIPIDEMIA [E78.2] 12/31/2005 Essential hypertension [I10] 12/31/2005 Uncontrolled type 2 diabetes mellitus with micr*2009 Chronic bilateral low back pain with right-side*2011 Recurrent inguinal hernia [K40.91] 06/22/2012 DM (diabetes mellitus), type 2, uncontrolled, w*2014 Prescriptions ordered this encounter Disp Refills Star t End AMLODIPINE 5 MG TABLET 90 t* 2 05/29/2020 Route: ORAL Sig: Take 1 tablet by mouth once daily. Medications Discontinued During This Encounter Prescriptions - amLODIPine (NORVASC) 5 mg tablet (Discontinued) Take 1 tablet by mouth once daily. Encounter Status:Closed by ROSY FLEMING MA on 05/29 XR KNEE 1 OR 2 VIEWS RIGHT on 9 XR KNEE 1 OR 2 VIEWS ORIGINAL Normal [facility] RIGHT XR KNEE 1 OR 2 VIEWS RIGHT ( [place]) CLINICAL STATEMENT: Status Post Arthroplasty. COMPARISON: None FINDINGS: There is a complet e knee prosthesis. The components appear intact. There is minimal space between the tibial plateau and tibial component of the prosthesis on the medial side. Gas and fluid wi thin the soft tissues is con sistent with immediate postoperative state. Vascular calcifications are noted in the soft tissues. Surgical ayanna overlie the skin anteriorly. No acute fracture or dislocation is shown. IMPRESSION: Immediate postoperative changes. Interpreted By: Vida Rees MD Preliminary Report By: Vida Rees MD Electronically Signed By: Vida Rees MD Dictated Date: 03/07/2019 11:10:38 PM Prelim Date: 03/07/2019 11:10:38 PM Sign Date: 03/07/2019 11:11:33 PM Ordering Provider:Cortes Romero .Auto Diff on 03-07-2019 Ammonia (P) [Mass/Vol] 1.10 10 3/mcL High 0.15-1.00 [facility] ([place]) Comment on above: Performed By: #### CBC, ADIF F, ANEU #### [place] [address] #### BMP, GFR #### [address] [address] Basophils (Bld) [#/Vol] 0.00 10 3/mcL Normal 0.00-0.19 [facility] ([place]) Comment on above: Performed By: #### CBC, ADIF F, ANEU #### [place] [address] #### BMP, GFR #### [address] [address] Basophils/100 WBC (Bld) 0.4 % Normal 0.0-2.5 [facility] ([place]) Comment on above: Performed By: #### CBC, ADIF F, ANEU #### [place] [address] #### BMP, GFR #### [address] [address] Eosinophils (Bld) [#/Vol] 0.10 10 3/mcL Normal 0.00-0.40 [facility] ([place]) Comment on above: Performed By: #### CBC, ADIF F, ANEU #### [place] [address] #### BMP, GFR #### [address] [address] Eosinophils/100 WBC (Bld) 0.6 % Normal 0.0-7.0 [facility] ([place]) Comment on above: Performed By: #### CBC, ADIF F, ANEU #### [address] [address] #### BMP, GFR #### [address] [address] Lymphocytes (Bld) [#/Vol] 1.70 10 3/mcL Normal 0.77-3.85 A [facility] ([place]) Comment on above: Performed By: #### CBC, ADIF F, ANEU #### [address] [address] #### BMP, GFR #### [address] [address] Lymphocytes/100 WBC (Bld) 15.8 % Normal 10.0-50.0 [facility] ([place]) Comment on above: Performed By: #### CBC, ADIF F, ANEU #### [address] [address] #### BMP, GFR #### [address] [address] Monocytes/100 WBC (Bld) 10.6 % Normal 1.7-13.0 [facility] ([place]) Comment on above: Performed By: #### CBC, ADIF F, ANEU #### [address] [address] #### BMP, GFR #### [address] [address] Neutrophils/100 WBC (Bld) 72.6 % Normal 37.0-80.0 [facility] ([place]) Comment on above: Performed By: #### CBC, ADIF F, ANEU #### [address] [address] #### BMP, GFR #### [address] [address] .GFR on 03-07-2019 GFR 74 ml/min/1.73sqm Normal [facility] ([place]) Comment on above: Result Comment: GFR Population mean for Afri can Togolese, Non- Americans Ages 20-29 = 116 mL/min/1.73 sq.m. Ages 30-39 = 107 mL/min/1.73 sq.m. Ages 40-49 = 99 mL/min/1.73 sq.m. Ages 50-59 = 93 mL/min/1.73 sq.m. Ages 60-69 = 85 mL/min/1.73 sq.m. Ages 70+ = 75 mL/min/1.73 sq .m. Chronic Kidney Disease: Less than 60 mL/min/1.73 square meters End Stage Renal Disease: Les s than 15 mL/min/1.73 square meters Performed By: #### CBC, ADIF F, ANEU #### [place] [address] [address] GFR Non- 61 ml/min/1.73sqm Normal [facility] ([place]) Comment on above: Result Comment: GFR Population mean for Afri can Togolese, Non- Americans Ages 20-29 = 116 mL/min/1.73 sq.m. Ages 30-39 = 107 mL/min/1.73 sq.m. Ages 40-49 = 99 mL/min/1.73 sq.m. Ages 50-59 = 93 mL/min/1.73 sq.m. Ages 60-69 = 85 mL/min/1.73 sq.m. Ages 70+ = 75 mL/min/1.73 sq .m. Chronic Kidney Disease: Less than 60 mL/min/1.73 square meters End Stage Renal Disease: Les s than 15 mL/min/1.73 square meters Performed By: #### CBC, ADIF F, ANEU #### [place] [address] [address] .NEUABS on 03-07-2019 Neutrophils (Bld) [#/Vol] 7.70 10 3/mcL High 2.85-6.16 A [facility] ([place]) Comment on above: Performed By: #### CBC, ADIF F, ANEU #### [place] [address] [address] #### BMP, GFR #### [address] [address] BMP on 03-07-2019 Calcium [Mass/Vol] 8.8 mg/dL Normal 8.4-10.2 [facility] ([place]) Comment on above: Performed By: #### CBC, ADIF F, ANEU #### [place] [address] #### BMP, GFR #### [address] [address] Chloride [Moles/Vol] 102 mmol/L Normal 98-107 [facility] ([place]) Comment on above: Performed By: #### CBC, ADIF F, ANEU #### [place] [address] #### BMP, GFR #### [address] [address] CO2 [Moles/Vol] 33 mmol/L High 23-31 [facility] ([place]) Comment on above: Performed By: #### CBC, ADIF F, ANEU #### [place] [address] #### BMP, GFR #### [place] [phone] Creatinine [Mass/Vol] 1.15 mg/dL Normal 0.70-1.30 [facility] ([place]) Comment on above: Performed By: #### CBC, ADIF F, ANEU #### [place] [address] #### BMP, GFR #### [address] [address] Electrolyte Balance 6.0 mEq/L Normal [facility] ([place]) Comment on above: Performed By: #### CBC, ADIF F, ANEU #### [place] [phone] #### BMP, GFR #### [place] [phone] Glucose [Mass/Vol] 120 mg/dL High 83-110 [facility] ([place]) Comment on above: Performed By: #### CBC, ADIF F, ANEU #### [address] [address] #### BMP, GFR #### [address] [address] Potassium [Moles/Vol] 4.0 mmol/L Normal 3.5-5.1 [facility] ([place]) Comment on above: Performed By: #### CBC, ADIF F, ANEU #### [address] [address] #### BMP, GFR #### [address] [address] Sodium [Moles/Vol] 141 mmol/L Normal 136-145 [facility] ([place]) Comment on above: Performed By: #### CBC, ADIF F, ANEU #### [address] [address] #### BMP, GFR #### [address] [address] Urea nitrogen [Mass/Vol] 24 mg/dL High 7-18 [facility] ([place]) Comment on above: Performed By: #### CBC, ADIF F, ANEU #### [address] [address] #### BMP, GFR #### [address] [address] Urea nitrogen/Creatinine [Mass ratio] 21 ratio Normal 7-2 7 [facility] ([place]) Comment on above: Performed By: #### CBC, ADIF F, ANEU #### [address] [address] #### BMP, GFR #### [address] [address] CBC on 03-07-2019 Erythrocyte distribution width 14.4 % Normal 11.5-14.5 [facility] (RBC) [Ratio] ([place]) Comment on above: Performed By: #### CBC, ADIF F, ANEU #### [place] [address] #### BMP, GFR #### [address] [address] Hematocrit (Bld) [Volume 37.4 % Low 42.0-52.0 [facility] ([place]) fraction] Comment on above: Performed By: #### CBC, ADIF F, ANEU #### [place] [address] #### BMP, GFR #### [place] [address] Hemoglobin (Bld) [Mass/Vol] 12.4 G/dL Low 14.0-18.0 [facility] ([place]) Comment on above: Performed By: #### CBC, ADIF F, ANEU #### [place] [address] #### BMP, GFR #### [place] [address] MCH (RBC) [Entitic mass] 30.0 pg Normal 27.0-31.2 [facility] ([place]) Comment on above: Performed By: #### CBC, ADIF F, ANEU #### [place] [address] #### BMP, GFR #### [address] [address] MCHC (RBC) [Mass/Vol] 33.2 G/dL Normal 31.8-35.4 [facility] ([place]) Comment on above: Performed By: #### CBC, ADIF F, ANEU #### [place] [address] #### BMP, GFR #### [place] [address] MCV (RBC) [Entitic vol] 90.4 fL Normal 80.0-94.0 [facility] ([place]) Comment on above: Performed By: #### CBC, ADIF F, ANEU #### [place] [id number] #### BMP, GFR #### [place] [address] Platelet mean volume (Bld) 9.0 fL Normal 7.4-10.4 A [facility] ([place]) [Entitic vol] Comment on above: Performed By: #### CBC, ADIF F, ANEU #### [place] [address] #### BMP, GFR #### [place] [address] Platelets (Bld) [#/Vol] 205 10 3/mcL Normal 130-400 [facility] ([place]) Comment on above: Performed By: #### CBC, ADIF F, ANEU #### [place] [address] #### BMP, GFR #### [place] [address] RBC (Bld) [#/Vol] 4.14 10 6/mcL Normal 4.04-6.13 [facility] ([place]) Comment on above: Performed By: #### CBC, ADIF F, ANEU #### [place] [address] #### BMP, GFR #### [place] [address] WBC (Bld) [#/Vol] 10.60 10 3/mcL Normal 4.60-10.80 [facility] ([place]) Comment on above: Performed By: #### CBC, ADIF F, ANEU #### [place] [address] #### BMP, GFR #### [place] [address] .Auto Diff on 02-19-2019 Ammonia (P) [Mass/Vol] 0.80 10 3/mcL Normal 0.15-1.00 [facility] ([place]) Comment on above: Performed By: #### CBC, ADIF F, ANEU #### [place] [id number] Basophils (Bld) [#/Vol] 0.10 10 3/mcL Normal 0.00-0.19 [facility] ([place]) Comment on above: Performed By: #### CBC, ADIF F, ANEU #### [address] [address] Basophils/100 WBC (Bld) 0.7 % Normal 0.0-2.5 [facility] ([place]) Comment on above: Performed By: #### CBC, ADIF F, ANEU #### [address] [address] Eosinophils (Bld) [#/Vol] 0.10 10 3/mcL Normal 0.00-0.40 A [facility] ([place]) Comment on above: Performed By: #### CBC, ADIF F, ANEU #### [address] [address] Eosinophils/100 WBC (Bld) 1.0 % Normal 0.0-7.0 [facility] ([place]) Comment on above: Performed By: #### CBC, ADIF F, ANEU #### [address] [address] Lymphocytes (Bld) [#/Vol] 1.80 10 3/mcL Normal 0.77-3.85 A [facility] ([place]) Comment on above: Performed By: #### CBC, ADIF F, ANEU #### [address] [address] Lymphocytes/100 WBC (Bld) 19.7 % Normal 10.0-50.0 [facility] ([place]) Comment on above: Performed By: #### CBC, ADIF F, ANEU #### [address] [address] Monocytes/100 WBC (Bld) 8.4 % Normal 1.7-13.0 [facility] ([place]) Comment on above: Performed By: #### CBC, ADIF F, ANEU #### [address] [address] Neutrophils/100 WBC (Bld) 70.2 % Normal 37.0-80.0 [facility] ([place]) Comment on above: Performed By: #### CBC, ADIF F, ANEU #### [place] [address] [address] .GFR on 02-19-2019 GFR 62 ml/min/1.73sqm Normal [facility] ([place]) Comment on above: Result Comment: GFR Population mean for Afri can Togolese, Non- Americans Ages 20-29 = 116 mL/min/1.73 sq.m. Ages 30-39 = 107 mL/min/1.73 sq.m. Ages 40-49 = 99 mL/min/1.73 sq.m. Ages 50-59 = 93 mL/min/1.73 sq.m. Ages 60-69 = 85 mL/min/1.73 sq.m. Ages 70+ = 75 mL/min/1.73 sq .m. Chronic Kidney Disease: Less than 60 mL/min/1.73 square meters End Stage Renal Disease: Les s than 15 mL/min/1.73 square meters Performed By: #### BMP, GFR #### [place] [address] GFR Non- 51 ml/min/1.73sqm Normal [facility] ([place]) Comment on above: Result Comment: GFR Population mean for Afri can Togolese, Non- Americans Ages 20-29 = 116 mL/min/1.73 sq.m. Ages 30-39 = 107 mL/min/1.73 sq.m. Ages 40-49 = 99 mL/min/1.73 sq.m. Ages 50-59 = 93 mL/min/1.73 sq.m. Ages 60-69 = 85 mL/min/1.73 sq.m. Ages 70+ = 75 mL/min/1.73 sq .m. Chronic Kidney Disease: Less than 60 mL/min/1.73 square meters End Stage Renal Disease: Les s than 15 mL/min/1.73 square meters Performed By: #### BMP, GFR #### [address] [address] .NEUABS on 02-19-2019 Neutrophils (Bld) [#/Vol] 6.30 10 3/mcL High 2.85-6.16 A [facility] ([place]) Comment on above: Performed By: #### CBC, ADIF F, ANEU #### [address] [address] BMP on 02-19-2019 Calcium [Mass/Vol] 9.3 mg/dL Normal 8.4-10.2 [facility] ([place]) Comment on above: Performed By: #### BMP, GFR #### [address] [address] Chloride [Moles/Vol] 101 mmol/L Normal 98-107 [facility] ([place]) Comment on above: Performed By: #### BMP, GFR #### [address] [address] CO2 [Moles/Vol] 32 mmol/L High 23-31 [facility] ([place]) Comment on above: Performed By: #### BMP, GFR #### [address] [address] Creatinine [Mass/Vol] 1.34 mg/dL High 0.70-1.30 [facility] ([place]) Comment on above: Performed By: #### BMP, GFR #### [address] [address] Electrolyte Balance 9.0 mEq/L Normal [facility] ([place]) Comment on above: Performed By: #### BMP, GFR #### [address] [address] Glucose [Mass/Vol] 187 mg/dL High 83-110 [facility] ([place]) Comment on above: Performed By: #### BMP, GFR #### [address] [address] Potassium [Moles/Vol] 4.3 mmol/L Normal 3.5-5.1 [facility] ([place]) Comment on above: Performed By: #### BMP, GFR #### [address] [address] Sodium [Moles/Vol] 142 mmol/L Normal 136-145 [facility] ([place]) Comment on above: Performed By: #### BMP, GFR #### [address] [address] Urea nitrogen [Mass/Vol] 30 mg/dL High 7-18 [facility] ([place]) Comment on above: Performed By: #### BMP, GFR #### [address] [address] Urea nitrogen/Creatinine [Mass ratio] 22 ratio Normal 7-2 7 [facility] ([place]) Comment on above: Performed By: #### BMP, GFR #### [address] [address] CBC on 02-19-2019 Erythrocyte distribution width 14.7 % High 11.5-14.5 [facility] ([place]) (RBC) [Ratio] Comment on above: Performed By: #### CBC, ADIF F, ANEU #### [address] [address] Hematocrit (Bld) [Volume 42.9 % Normal 42.0-52.0 [facility] ([place]) fraction] Comment on above: Performed By: #### CBC, ADIF F, ANEU #### [address] [address] Hemoglobin (Bld) [Mass/Vol] 14.2 G/dL Normal 14.0-18.0 [facility] ([place]) Comment on above: Performed By: #### CBC, ADIF F, ANEU #### [address] [address] MCH (RBC) [Entitic mass] 30.2 pg Normal 27.0-31.2 [facility] ([place]) Comment on above: Performed By: #### CBC, ADIF F, ANEU #### [address] [address] MCHC (RBC) [Mass/Vol] 33.2 G/dL Normal 31.8-35.4 [facility] ([place]) Comment on above: Performed By: #### CBC, ADIF F, ANEU #### [address] [address] MCV (RBC) [Entitic vol] 91.1 fL Normal 80.0-94.0 [facility] ([place]) Comment on above: Performed By: #### CBC, ADIF F, ANEU #### [address] [address] Platelet mean volume (Bld) 9.3 fL Normal 7.4-10.4 A [facility] ([place]) [Entitic vol] Comment on above: Performed By: #### CBC, ADIF F, ANEU #### [address] [address] Platelets (Bld) [#/Vol] 264 10 3/mcL Normal 130-400 [facility] ([place]) Comment on above: Performed By: #### CBC, ADIF F, ANEU #### [address] [address] RBC (Bld) [#/Vol] 4.71 10 6/mcL Normal 4.04-6.13 [facility] ([place]) Comment on above: Performed By: #### CBC, ADIF F, ANEU #### [address] [address] WBC (Bld) [#/Vol] 8.90 10 3/mcL Normal 4.60-10.80 [facility] ([place]) Comment on above: Performed By: #### CBC, ADIF F, ANEU #### [address] [address] [address] KNEE W/O CONTRAST RIGHT on 9 CT KNEE W/O CONTRAST ORIGINAL Normal [facility] RIGHT CT KNEE W/O CONTRAST RIGHT [facility] ([place] CLINICAL STATEMENT: UNILATERAL PRIMARY OSTEOARTHRITIS RIGHT KNEE COMPARISON: None FINDINGS: This exam was performed acco rding to our departmental dose-optimization program which includes automated exposure control, adjustment of the mA and/or kVp according to patient size and/or use of iterative reconstruction technique where applicable. Survey images LEFT hip: Mild degenerative changes visualized. No aggressive osseous lesions seen. There is a fat-containing RIGHT inguinal hernia. Severe medial tibiofemoral c artilage loss noted. There is chondrocalcinosis. Prominent patellofemoral and lateral tibiofemoral compartment spurs seen. There is exaggerated lateral tilt of the patella. A moderate joint effusion visualized. There is signific ant atherosclerosis. Survey images of the ankle: There is a large os trigonum. No aggressive osseous lesion identified. IMPRESSION: 1. Severe degenerative changes of the RIGHT knee. Patel drocalcinosis 2. Moderate RIGHT knee joint effusion Interpreted By: Anil Burroughs MD Preliminary Report By: Anil Burroughs MD Electronically Signed By: Anil Burroughs MD Dictated Date: 02/19/2019 9:50:44 AM Prelim Date: 02/19/2019 9:50:44 AM Sign Date: 02/19/2019 9:53:36 AM Ordering Provider:Cortes Romero Progress note 12-24-2020 Note Date & Type Note Facility 12-24-2020 Note HNO ID: [id number] [facility] Author: Curly Dennison RPh Service: ? Author Type: Pharmacist Type: Progress Notes Filed: 01/01/2021 4:10 PM Note Text: Primary Care Pharmacy Visit REASON FOR CONSULT: DM?and BP GOALS: A1c CONSULTING PROVIDER:??Miguel Giraldo Date of Consult:?01/30/19 Francisco Thomas is a 80 year old male prese ing for follow up visit in person. Patient consents to pharmacy col laborative practice agreement. . Last seen by PCP, Dr. Emelyn Giraldo MD on 06/24/20. At last PCP appt, pt had self-stopped Victoza and increased L antus dose, his BP was elevated and he was encouraged to complete labs.? At??PharmD visit on?08/27,?BP was elevated so losartan was switched to delia sartan.?At PharmD visit on?09/18,?patient noted his BP seemed bett er since switching to valsartan.?He admitted to not doing grea t about limiting sodium/caffeine and sometimes misses amlodipine. PharmD advised he switch timing of amlodipine to AM and no other med change s made but patient encouraged to work on lifestyle modifications. At last PharmD visit on 10/23, amlodipine was increased. At last PharmD visit on , pt was instructed to discontinue HCTZ, begin chlorthalidone 2 5 mg daily and decrease insulin glargine to 28 units daily. INTERIM HISTORY: Reports BP has been higher since switchi ng from HCTZ to chlorthalidone. Has complete ~2 weeks worth of Cholrthal idone, has about ~2 weeks supply remaining. Has self increased insulin back to 30 un its daily, no BG <70 mg/dL. Current DM Medications: Metformin ER 500mg tabs - 1000mg BID Insulin glargine (Basaglar) 28 units QAM - has increased back to 30 units once daily Current HTN Medications: Chlorthalidone 25mg daily?QAM Valsartan 320mg daily?at night Amlodipine 10mg daily?QAM Preventative Medications: ? On ALVIN/ARB: Yes ? On Statin: No - myalgias GLYCEMIC CONTROL: ? SMBG?s: Date Fasting AM 2 hr PP Before Lunch 2 h r PP Before Dinner 2 hr PP Bedtime 12/24 111 12/23 117 12/22 131 12/21 131 12/20 126 12/19 96 12/18 96 12/17 137 12/16 120 12/15 128 12/14 83 12/13 110 12/12 128 ? Hypoglycemia: denies Home readings: Date BP Pulse 12/20 153/73 72 12/17 154/72 70 12/16 154/74 69 12/15 162/77 72 12/14 154/74 67 11/26 129/68 82 11/21 131/71 83 ROS: ? Patient denies CP, SOB, JOHNSON, blurred vi felix, dizziness or lightheadedness ? Patient denies nausea, vomiting, diarr hea, abdominal pain ? Patient denies symptoms of hypoglycemi a (sweating, anxiety, palpitations, hunger, and tremor) ? Patient denies symptoms of hyperglycem ia (polyuria, polydipsia, polyphagia) ? Patient denies potential medication ad verse effects DIET/EXERCISE/SOCIAL Hx: ? On most days has about 2 cups of caffe ine per day MEDICATIONS: ? Pill bottles are not present. Adherence: denies missed doses Pharmacy:?[facility]? Rx coverage:?Medicare Affordability:?insulin and Victoza costl y Diabetes supplies:?[employer] System:?none ACTIVE PROBLEM LIST Chronic Pain of Right Knee Mixed Hyperlipidemia Essential Hypertension Uncontrolled Type 2 Diabetes Mellitus Wi th Microalbuminuria, With Long-Term Current Use of Insulin (Hcc) Chronic Bilateral Low Back Pain With Rig ht-Sided Sciatica Recurrent Inguinal Hernia Dm (Diabetes Mellitus), Type 2, Uncontro lled, With Renal Complications (Hcc) PAST MEDICAL HISTORY Diagnosis Date - Hypercholesterolemia - Hypertension - Type II or unspecified type diabetes m ellitus without mention of complication, not stated as uncontrolled ALLERGIES Allergen Reactions - Cholestyramine Other: See Comments caused low blood sugar - Mobic [Meloxicam] Swelling, Itching - Pravachol [Pravasta* Intolerance Myalgias. Current Outpatient Medications Medication Sig - chlorthalidone (HYGROTON) 25 mg tablet Take 1 tablet by mouth once daily. - insulin glargine (BASAGLAR KWIKPEN U-1 00 INSULIN) 100 unit/mL (3 mL) Inject 28 Units subcutaneously every mor chong. - amLODIPine (NORVASC) 10 mg tablet Take 1 tablet by mouth once daily. - valsartan (DIOVAN) 320 mg tablet Take 1 tablet by mouth once daily. - metFORMIN ER (GLUCOPHAGE XR) 500 mg 24 hr tablet Take 2 tablets by mouth twice daily before meals. - Blood Pressure Monitor Use to check bl ood pressure daily. - Insulin Henderson, Disposable, (BD ULTRA -FINE SHEBA PEN NEEDLE) 32 gauge x 5/32 Use to inject insulin and Victoza, 2 injections per day. - potassium chloride ER (KLOR-CON M20) 2 0 mEq tablet Take 1 tablet by mouth twice daily. - traMADol (ULTRAM) 50 mg tablet Take 50 -100 mg by mouth every 6 hours as needed. - blood sugar diagnostic (ONETOUCH ULTRA TEST) test strip Use to check blood sugar three times daily. - Lancets (ONETOUCH ULTRASOFT LANCETS) l ancets Test blood sugar four times daily. Uncontrolled diabetes type 2 on i nsulin - latanoprost (XALATAN) 0.005 % ophthalm ic solution Use 1 Drop in both eyes daily at bedtime. (more content not included)... Progress note 11-27-2020 Note Date & Type Note Facility 11-27-2020 Note HNO ID: [id number] [facility] Author: Dione Chang [facility] Service: ? Author Type: Pharmacist Type: Progress Notes Filed: 11/27/2020 3:15 PM Note Text: Patient consents to pharmacy collaborati ve practice agreement. REASON FOR CONSULT: DM?and BP GOALS: A1c CONSULTING PROVIDER:??Miguel Giraldo Date of Consult:?01/30/19 Francisco Thomas is a 80 year old male prese [facility] for follow up visit in person. Patient consents to pharmacy col laborative practice agreement. . Patient was last seen by PCP, Dr. Lise Giraldo MD on 06/24/20. Patient is presenting today for f/up pha rmacotherapy management appointment for diabetes and HTN. At [facility] PCP appt, pt had self-stopped Victoza and increased Lantus dose, his B P was elevated and he was encouraged to complete labs.?At??PharmD visit on?08/27,?BP was elevated so losartan was switched to valsartan. At P harmD visit on 09/18, patient noted his BP seemed better since switching to valsartan. He admitted to not doing great about limiting sodium/caffei ne and sometimes misses amlodipine. PharmD advised he switch louise ing of amlodipine to AM and no other med changes made but patient encou raged to work on lifestyle modifications. At last PharmD visit on , amlodipine was increased. Subjective: HPI: Reports having low BGs in the afternoons before dinner and I have no idea why. This has happened 3 times in the p ast couple weeks. One time did have a low BG in the morning after givin g insulin. Took 1 glucose tab each time. Not sure if he had breakfast the m orning he had a low BG. Not sure if had been more physically active. Still having some lower leg cramps in th e calf and occasional ankle. Started taking zinc and magnesium, hasn' t had any cramps in the past 3-4 days. Still doesn't think he is drinking sufficient water. Is drinking some Gatorade Zero. Current DM Medications: Metformin ER 500mg tabs - 1000mg BID Insulin glargine (Basaglar) 30 units QAM GLYCEMIC CONTROL: ? Glucometer present at visit: No ? SMBG?s: Date Fasting AM 11/27 136 127 131 161 107 117 117 130 187 121 136 107 137 119 ? Hypoglycemia: yes, had feelings of low s 3x in the past 2 weeks but didn't check BGs ? How corrected: 1 glucose tab Current HTN Medications: HCTZ 25mg daily?QAM Valsartan 320mg daily?at night Amlodipine 10mg daily QAM ? Home BP monitoring?:?yes Type of cuff:?arm cuff (has been compare d to office reader, reads 10 pts higher) Home BP Log Date BP Pulse 11/26 129/68 82 11/21 131/71 83 9/7 129/73 89 9/6 150/72 66 9/5 147/74 66 9/4 140/85 71 9/2 157/76, 110/80 75 Preventative Medications: On ALVIN/ARB: Yes On Statin: No - myalgias ROS: ? Patient denies CP, SOB, JOHNSON, blurred vi felix, dizziness or lightheadedness ? Patient denies symptoms of hypoglycemi a (sweating, anxiety, palpitations, hunger, and tremor) ? Patient denies symptoms of hyperglycem ia (polyuria, polydipsia, polyphagia) ? Patient denies potential medication ad verse effects MEDICATIONS: Pill bottles are not present Adherence: denies missed doses Pharmacy:?[facility]? Rx coverage:?Medicare Affordability:?insulin and Victoza costl y Diabetes supplies:?[employer] System:?none Past medical, family and social history reviewed and updated. ACTIVE PROBLEM LIST Chronic Pain of Right Knee Mixed Hyperlipidemia Essential Hypertension Uncontrolled Type 2 Diabetes Mellitus Wi th Microalbuminuria, With Long-Term Current Use of Insulin (Hcc) Chronic Bilateral Low Back Pain With Rig ht-Sided Sciatica Recurrent Inguinal Hernia Dm (Diabetes Mellitus), Type 2, Uncontro lled, With Renal Complications (Hcc) PAST MEDICAL HISTORY Diagnosis Date - Hypercholesterolemia - Hypertension - Type II or unspecified type diabetes m ellitus without mention of complication, not stated as uncontrolled ALLERGIES Allergen Reactions - Cholestyramine Other: See Comments caused low blood sugar - Mobic [Meloxicam] Swelling, Itching - Pravachol [Pravasta* Intolerance Myalgias. Medication List Medication Directions Comments Action/Pl an amLODIPine (NORVASC) 10 mg tablet Take 1 tablet by mouth once daily. Blood Pressure Monitor Use to check bloo d pressure daily. blood sugar diagnostic ([employer] ULTRA T EST) test strip Use to check blood sugar three times daily. hydroCHLOROthiazide (HYDRODIURIL, ESIDRI X) 25 mg tablet Take 1 tablet by mouth once daily. insulin glargine (BASAGLAR KWIKPEN U-100 INSULIN) 100 unit/mL (3 mL) Inject 30 Units subcutaneously every mor chong. Insulin Henderson, Disposable, (BD ULTRA-F INE SHEBA PEN NEEDLE) 32 gauge x 5/32 Use to inject insulin and Victoza, 2 injections per day. Lancets (ONETOUCH ULTRASOFT LANCETS) toni cets Test blood sugar four times daily. Uncontrolled diabetes type 2 on i nsulin latanoprost (XALATAN) 0.005 % ophthalmic solution Use 1 Drop in both eyes daily at bedtime. metFORM (more content not included)... Progress note 10-23-2020 Note Date & Type Note Facility 10-23-2020 Note HNO ID: [id number] [facility] Author: Dione Chang [facility] Service: ? Author Type: Pharmacist Type: Progress Notes Filed: 10/23/2020 4:17 PM Note Text: Patient consents to pharmacy collaborati ve practice agreement. REASON FOR CONSULT: DM?and BP GOALS: A1c CONSULTING PROVIDER:??Miguel Giraldo Date of Consult:?01/30/19 ? Francisco Thomas is a 80 year old male was l ast seen by PCP, Dr. Emelyn Giraldo MD on?06/24/2020. ? Patient is presenting today for f/up pha rmacotherapy management appointment for diabetes. Patient is pre senting today for?established?pharmacotherapy manageme nt appointment for diabetes and HTN. At last PCP appt, pt had self-stopp ed Victoza and increased Lantus dose, his BP was elevated and he was enc ouraged to complete labs.?Pt has followed with pharmacy in the past and h ere to re-establish care for DM and BP management. At PharmD visit on , BP was elevated so losartan was switched to valsartan. At last Pharm D visit on 09/18, patient noted his BP seemed better since switching to vals cayetano. He admitted to not doing great about limiting sodium/caffeine and sometimes misses amlodipine. No med changes made but patient encouraged to work on lifestyle modifications. Subjective: Patient overall reports feeling well. Is frustrated with technology issues with online newspaper. Patient admits that he is eating more ic e cream in the summer. Admits BGs tend to go up in the summer. Will usuall y have 1/2-1 scoops at night 2-3x/week. Patient has moved amlodipine to [facility] and is not missing any doses. Has not noticed feeling any different. Not notic ing any dizziness or light-headedness. Not having any swellin g of ankle or feet. He is happy with current BP control. Patient activel y trying to cut back on adding salt to food and when cooking. No change to caffeine consumption. Current HTN Medications: HCTZ 25mg daily?QAM Valsartan 320mg daily?at night Amlodipine 5mg daily QAM ? Home BP monitoring?: yes Type of cuff: arm cuff (has been compare d to office reader, reads 10 pts higher) Home BP Log Date BP Pulse 10/22/20 136/86, 143/70, 142/69 71, 69, 7 0 Current DM Medications: Metformin ER 500mg tabs - 1000mg BID Insulin glargine (Basaglar) 30 units QAM GLYCEMIC CONTROL: ? Glucometer present at visit: No ? SMBG?s: Date Fasting AM 12 125 8/11 143 8/10 111 8/9 125 8/8 107 8/7 130 8/6 131 8/5 137 8/4 142 8/3 132 8/2 123 8/1 113 ? Hypoglycemia: none; lowest BG was 87 m g/dL Preventative Medications: On ALVIN/ARB: Yes On Statin: No - myalgias ROS: ? Patient denies CP, SOB, JOHNSON, blurred vi felix, dizziness or lightheadedness ? Patient denies symptoms of hypoglycemi a (sweating, anxiety, palpitations, hunger, and tremor) ? Patient denies symptoms of hyperglycem ia (polyuria, polydipsia, polyphagia) ? Patient denies potential medication ad verse effects DIET/EXERCISE/SOCIAL Hx: ? Adding less sodium to food MEDICATIONS: Pill bottles are not present Adherence: denies missed doses Pharmacy: [facility] Rx coverage: Medicare Affordability: insulin and Victoza costl y Diabetes supplies: [employer] System: none ACTIVE PROBLEM LIST Chronic Pain of Right Knee Mixed Hyperlipidemia Essential Hypertension Uncontrolled Type 2 Diabetes Mellitus Wi th Microalbuminuria, With Long-Term Current Use of Insulin (Hcc) Chronic Bilateral Low Back Pain With Rig ht-Sided Sciatica Recurrent Inguinal Hernia Dm (Diabetes Mellitus), Type 2, Uncontro lled, With Renal Complications (Hcc) PAST MEDICAL HISTORY Diagnosis Date - Hypercholesterolemia - Hypertension - Type II or unspecified type diabetes m ellitus without mention of complication, not stated as uncontrolled ALLERGIES Allergen Reactions - Cholestyramine Other: See Comments caused low blood sugar - Mobic [Meloxicam] Swelling, Itching - Pravachol [Pravasta* Intolerance Myalgias. Medication List Medication Directions Comments Action/Pl an amLODIPine (NORVASC) 5 mg tablet Take 1 tablet by mouth once daily. Blood Pressure Monitor Use to check bloo d pressure daily. blood sugar diagnostic (ONETOUCH ULTRA T EST) test strip Use to check blood sugar three times daily. hydroCHLOROthiazide (HYDRODIURIL, ESIDRI X) 25 mg tablet Take 1 tablet by mouth once daily. insulin glargine (BASAGLAR KWIKPEN U-100 INSULIN) 100 unit/mL (3 mL) Inject 30 Units subcutaneously every mor chong. Insulin Henderson, Disposable, (BD ULTRA-F INE SHEBA PEN NEEDLE) 32 gauge x Use to inject insulin and Victoza, 2 injections per day. Lancets ([employer]com[employer]CH ULTRASOFT LANCETS) toni cets Test blood sugar four times daily. Uncontrolled diabetes type 2 on i nsulin latanoprost (XALATAN) 0.005 % ophthalmic solution Use 1 Drop in both eyes daily at bedtime. metFORMIN ER (GLUCOPHAGE XR) 500 mg 24 h r tablet Take 2 tablets by mouth twice daily before meals. potassium chloride ER (KLOR-CON (more co ntent not included)... Progress note 09-18-2020 Note Date & Type Note Facility 09-18-2020 Note HNO ID: [id number] [facility] Author: Dione Chang [facility] Service: ? Author Type: Pharmacist Type: Progress Notes Filed: 09/18/2020 2:38 PM Note Text: Patient consents to pharmacy collaborati ve practice agreement. REASON FOR CONSULT: DM?and BP GOALS: A1c CONSULTING PROVIDER:??Miguel Giraldo Date of Consult:?01/30/19 ? Francisco Thomas is a 80 year old male was l ast seen by PCP, Dr. Emelyn Giraldo MD on 06/24/2020. Patient is presenting today for f/up pha rmacotherapy management appointment for diabetes. Patient is pre senting today for established pharmacotherapy management appointment f or diabetes and HTN. At last PCP appt, pt had self-stopped Victoza and in creased Lantus dose, his BP was elevated and he was encouraged to comple te labs. Pt has followed with pharmacy in the past and here to [facility] DM and BP management. At last PharmD visit on 08/27 , BP was elevated so losartan was switched to valsartan. Subjective: Checking BP at home. States his meter is about 10 points higher than office meter. He feels his BP has improv ed based on the readings. Doesn't feel any different. Not experiencing any cough. No dizziness, light-headedness. No CP, JOHNSON, SOB, or hea rt palpitations. Current HTN Medications: HCTZ 25mg daily in the morning Valsartan 320mg daily?at night Amlodipine 5mg daily?at noon Home BP monitoring?: yes Type of cuff: arm cuff (has been compare d to office reader, reads 10 pts higher) Home BP Log Date BP Pulse 09/17 141/78 72 139/64 64 142/66 66 08/30 185/94 80 186/93 83 186/91 77 18 140/71 72 131/69 68 131/67 72 Current DM Medications: Metformin ER 500mg tabs - 1000mg BID Insulin glargine (Basaglar) 30 units QAM GLYCEMIC CONTROL: ? Glucometer present at visit: No ? SMBG?s: reports BGs are doing fine, a little higher in the summer since eating more ice cream; FBGs usually 120- 135 mg/dL ? Hypoglycemia: none Preventative Medications: On ALVIN/ARB: Yes On Statin: No ROS: ? Patient denies CP, SOB, JOHNSON, blurred vi felix, dizziness or lightheadedness ? Patient denies symptoms of hypoglycemi a (sweating, anxiety, palpitations, hunger, and tremor) ? Patient denies symptoms of hyperglycem ia (polyuria, polydipsia, polyphagia) ? Patient denies potential medication ad verse effects DIET/EXERCISE/SOCIAL Hx: - Lunch: eats lunchmeat sandwich 3 days/ week; other days eats peanut butter sandwich MEDICATIONS: Pill bottles are not present Adherence: reports missed doses of lunch time amlodipine because pills fall out of pocket; doesn't happen often Pharmacy: [facility] Rx coverage: Medicare Affordability: insulin and Victoza costl y Diabetes supplies: [employer] Organization System: none ACTIVE PROBLEM LIST Chronic Pain of Right Knee Mixed Hyperlipidemia Essential Hypertension Uncontrolled Type 2 Diabetes Mellitus Wi th Microalbuminuria, With Long-Term Current Use of Insulin (Hcc) Chronic Bilateral Low Back Pain With Rig ht-Sided Sciatica Recurrent Inguinal Hernia Dm (Diabetes Mellitus), Type 2, Uncontro lled, With Renal Complications (Hcc) PAST MEDICAL HISTORY Diagnosis Date - Hypercholesterolemia - Hypertension - Type II or unspecified type diabetes m ellitus without mention of complication, not stated as uncontrolled ALLERGIES Allergen Reactions - Cholestyramine Other: See Comments caused low blood sugar - Mobic [Meloxicam] Swelling, Itching - Pravachol [Pravasta* Intolerance Myalgias. Medication List Medication Directions Comments Action/Pl an amLODIPine (NORVASC) 5 mg tablet Take 1 tablet by mouth once daily. Blood Pressure Monitor Use to check bloo d pressure daily. blood sugar diagnostic (Tourvia.meUCH ULTRA T EST) test strip Use to check blood sugar three times daily. hydroCHLOROthiazide (HYDRODIURIL, ESIDRI X) 25 mg tablet Take 1 tablet by mouth once daily. insulin glargine (BASAGLAR KWIKPEN U-100 INSULIN) 100 unit/mL (3 mL) Inject 30 Units subcutaneously every mor chong. Insulin Henderson, Disposable, (BD ULTRA-F INE SHEBA PEN NEEDLE) 32 gauge x /32 Use to inject insulin and Victoza, 2 injections per day. Lancets (WhenU.comTOUCH ULTRASOFT LANCETS) toni cets Test blood sugar four times daily. Uncontrolled diabetes type 2 on i nsulin latanoprost (XALATAN) 0.005 % ophthalmic solution Use 1 Drop in both eyes daily at bedtime. metFORMIN ER (GLUCOPHAGE XR) 500 mg 24 h r tablet Take 2 tablets by mouth twice daily before meals. potassium chloride ER (KLOR-CON M20) 20 mEq tablet Take 1 tablet by mouth twice daily. therapeutic multivitamin ORAL Tab Take o ne(1) tablet daily. traMADol (ULTRAM) 50 mg tablet Take 50-1 00 mg by mouth every 6 hours as needed. valsartan (DIOVAN) 320 mg tablet Take 1 tablet by mouth once daily. Objective: VITALS: BP 149/68 Pulse 70 Last 3 Encounter BP Readings: Date: BP: 08/27/2020 165/79 08/25/2020 180/74 06/24/2020 149/62 Wt: 79.8 kg (176 lb) BMI: 23.8 (more con tent not included)... Progress note 08-27-2020 Note Date & Type Note Facility 08-27-2020 Note HNO ID: [id number] [facility] Author: Curly Dennison [facility] Service: ? Author Type: Pharmacist Type: Progress Notes Filed: 09/11/2020 2:04 PM Note Text: Patient consents to pharmacy collaborati ve practice agreement. REASON FOR CONSULT: DM?and BP GOALS: A1c CONSULTING PROVIDER:??Miguel Giraldo Date of Consult:?01/30/19 Francisco Thomas is a 80 year old male was l ast seen by PCP, Dr. Emelyn Giraldo MD on 06/24/2020. Subjective: Patient is presenting today for [facility] management appointment for diabetes. At last PCP ap pt, pt had self-stopped Victoza and increased Lantus dose, his BP was el evated and he was encouraged to complete labs. Pt has followed with abel alejandro in the past and here to re-establish care for DM and BP manageme nt. INTERIM HISTORY: Pt states he did not have ADEs to Victoz a, self-stopped when he ran out of refill. Has increased insulin to 30 units daily. Recently started monitoring BP at home s laura last PCP visit since BP was elevated at that visit. SMBG?s: Date Fasting AM 2 hr PP Before Lunch 2 h r PP Before Dinner 2 hr PP Bedtime 08/27 152 6/15 101 6/14 136 6/13 115 6/12 126 6/11 105 6/10 123 6/9 154 6/8 130 6/7 97 6/6 119 6/5 95 6/4 119 6/3 88 Hypoglycemia: denies ? Home readings: Date BP Pulse 08/23 156/77 129/75 71 72 6/ 166/83 69 6/9 170/88 168/85 69 69 6/8 180/88 168/88 170/86 69 69 69 Current DM Medications: Metformin 500 mg- 2 tablets in the morni ng and 2 in evening with meals? Insulin glargine?28?units daily in the m stefan Current HTN Medications: HCTZ 25 mg once daily in the morning Losartan 100 mg once daily?at night Amlodipine 5 mg once daily?at noon Preventative Medications: ? On ALVIN/ARB:?Yes ? On Statin:?No, not indicated due to ag e ? On ASA:?No ? MEDICATIONS:? Adherence:?denies?missed doses. ? Pharmacy:?[facility]? Rx coverage:?Medicare ? Affordability:?insulin/victoza more co stly? ? Diabetes supplies:?[employer]? ? Organization System:?none ACTIVE PROBLEM LIST Chronic Pain of Right Knee Mixed Hyperlipidemia Essential Hypertension Uncontrolled Type 2 Diabetes Mellitus Wi th Microalbuminuria, With Long-Term Current Use of Insulin (Hcc) Chronic Bilateral Low Back Pain With Rig ht-Sided Sciatica Recurrent Inguinal Hernia Dm (Diabetes Mellitus), Type 2, Uncontro lled, With Renal Complications (Hcc) PAST MEDICAL HISTORY Diagnosis Date - Hypercholesterolemia - Hypertension - Type II or unspecified type diabetes m ellitus without mention of complication, not stated as uncontrolled ALLERGIES Allergen Reactions - Cholestyramine Other: See Comments caused low blood sugar - Mobic [Meloxicam] Swelling, Itching - Pravachol [Pravasta* Intolerance Myalgias. Current Outpatient Medications Medication Sig - insulin glargine (BASAGLAR KWIKPEN U-1 00 INSULIN) 100 unit/mL (3 mL) Inject 28 Units subcutaneously every mor chong. - hydroCHLOROthiazide (HYDRODIURIL, ESID CHANDRIKA) 25 mg tablet Take 1 tablet by mouth once daily. - metFORMIN ER (GLUCOPHAGE XR) 500 mg 24 hr tablet Take 2 tablets by mouth twice daily before meals. - amLODIPine (NORVASC) 5 mg tablet Take 1 tablet by mouth once daily. - losartan (COZAAR) 100 mg tablet Take 1 tablet by mouth once daily. - Blood Pressure Monitor Use to check bl ood pressure daily. - Insulin Henderson, Disposable, (BD ULTRA -FINE SHEBA PEN NEEDLE) 32 gauge x /32 Use to inject insulin and Victoza, 2 injections per day. - potassium chloride ER (KLOR-CON M20) 2 0 mEq tablet Take 1 tablet by mouth twice daily. - traMADol (ULTRAM) 50 mg tablet Take 50 -100 mg by mouth every 6 hours as needed. - blood sugar diagnostic (WhenU.comTOUCH ULTRA TEST) test strip Use to check blood sugar three times daily. - Lancets (WhenU.comTOUCH ULTRASOFT LANCETS) l ancets Test blood sugar four times daily. Uncontrolled diabetes type 2 on i nsulin - latanoprost (XALATAN) 0.005 % ophthalm ic solution Use 1 Drop in both eyes daily at bedtime. - therapeutic multivitamin ORAL Tab Take one(1) tablet daily. No current facility-administered medicat ions for this visit. Objective: VITALS: BP 165/79 (BP Site: Left Arm, BP Position: Sitting, BP Cuff Size: Regular Adult) Pulse 66 BP Chris #1: 173/81 pulse 66 BP Chris #2: 163/79 pulse 66 BP Chris #3: 159/78 pulse 65 BP Chris #4: 167/82 pulse 67 BP Chris #5: 166/79 pulse 66 BP Chris #6: 170/79 pulse 66 BP Chris Av/79 pulse 66 Last 3 Encounter BP Readings: Date: BP: 08/25/2020 180/74 06/24/2020 149/62 05/09/2019 124/80 Wt: 79.8 kg (176 lb) BMI: 23.87 kg/(m2) LABS Lab Results Component Value Date HBA1C 6.7 06/24/2020 HBA1C 6.3 10/18/2019 HBA1C 7.9 02/14/2019 CMP: Glucose 135 06/24/2020 BUN 22 06/24/2020 Creatinine 1.09 06/24/2020 Sodium 143 06/24/2020 Potassium 4.7 06/24/2020 Chlori (more content not included)... Progress note 08-25-2020 Note Date & Type Note Facility 08-25-2020 Note HNO ID: [id number] [facility] Author: Ivett Laboy LPN Service: ? Author Type: ? Type: Progress Notes Filed: 08/25/2020 11:48 AM Note Text: Manual Readin/82 Pulse: 72 Reason for blood pressure check - Last B P elevated Patient is: Taking medication as prescribed Yes, pat ient takes meds at noon and evening Took medication today No If no, date med ication last taken Patient takes meds at noon and evening Experiencing side effects No Recommendations Continue taking medicati ons as prescribed, Follow recommended diet instructions, Continue recommended activity and Avoid excessive salt Follow-up Yes follow up with Curly 021 Pt has been identified by name and date: Yes Allergies reviewed: Yes Latex allergy: no. Medication - prescribed and OTC reviewed and updated: Yes Do you need any prescription refills drea or to your next visit: No Health Maintenance: Reviewed and up to d ate Patient brought his own BP monitor today off by 10mmg, pulse was same Progress note 06-24-2020 Note Date & Type Note Facility 06-24-2020 Note HNO ID: [id number] [facility] Author: Emelyn Giraldo Service: ? Author Type: Physician Type: Progress Notes Filed: 07/01/2020 11:02 AM Note Text: CHIEF COMPLAINT Patient presents with: Follow Up: diabetes HISTORY OF PRESENT ILLNESS Francisco Thomas is a 79 year old male who p resents here today for management of multiple medical issues. I last saw t his patient on 01/30/2019. Diabetes Patient has improve diet patterns Stopped taking VICTOZA for one month Increased his insulin glargine from 25 t o 28 units Still taking and tolerating metformin ER Denies experiencing any hypoglycemic epi sodes HTN BP elevated on arrival today at 149/62, 134/64 on repeat. Taking and tolerating medications as pre scribed. No adverse side effects to medication. Base of L Thumb Jammed his thumb No issues with range of movement Counseled on newest information pertaini ng to COVID-19 vaccinations. Past medical history, appointments, medi cations, allergies reviewed. REVIEW OF SYSTEMS Pertinent positives/ negatives: General: Feels well, no weight changes, fever, chills. Endo: +DM HEENT: No sinus congestion, earache, sor e throat. Cardiac: No chest pain, palpitations Resp: No cough, wheeze, shortness of malika ath GI: No reflux symptoms, food intolerance , bowel changes. : No urinary frequency, dysuria. MS: No pain or joint complaints. PAST MEDICAL HISTORY PAST MEDICAL HISTORY Diagnosis Date - Hypercholesterolemia - Hypertension - Type II or unspecified type diabetes m ellitus without mention of complication, not stated as uncontrolled PHYSICAL EXAMINATION BP 149/62 Pulse 70 Temp 36.8 ?C (98. 2 ?F) (Temporal) Ht 182.9 cm (6') Wt 79.8 kg (176 lb) BMI 23.87 k g/m? Repeat BP: 134/64 General: Alert, well developed, well nou rished, no distress, pleasant and cooperative. Heart: Regular rate and rhythm. Normal S 1 and S2. No murmurs, rubs, or gallops. Lungs: Clear to auscultation bilaterally . No respiratory distress. No wheezes, rales, or rhonchi. 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 Due for janes bs. Plan: COMP METABOLIC PANEL, LIPID PANEL BASIC, HGB A1C, ALBUMIN/CREAT RATIO RND UR -insulin glargine (BASAGLAR KWIKPEN U-10 0 INSULIN) 100 unit/mL (3 mL) (refilled) -metFORMIN ER (GLUCOPHAGE XR) 500 mg 24 hr tablet (refilled) (Z78.9) Statin intolerance Comment: No longer on statins. Previous symptoms of muscle cramps and aches. Plan: continue current regimen (I10) Essential hypertension Comment: slightly elevated bp in office today. Plan: -hydroCHLOROthiazide (HYDRODIURIL, ESIDRIX) 25 mg tablet (refilled) -continue on current regimen Signed Prescriptions Disp Refills insulin glargine (BASAGLAR KWIKPEN U-100 INSULIN) 100 unit/mL (3 mL) 15 Pen 3 Sig: Inject 28 Units subcutaneously ever y morning. RAI: No hydroCHLOROthiazide (HYDRODIURIL, ESIDRI X) 25 mg tablet 90 tablet 3 Sig: Take 1 tablet by mouth once daily. RAI: No metFORMIN ER (GLUCOPHAGE XR) 500 mg 24 h r tablet 360 tablet 3 Sig: Take 2 tablets by mouth twice daily before meals. RAI: No RTO: Routine follow up in 6 months. Scribe Attestation: By signing my name below, Grecia Howe, attest that this documentation has been prepared under the direction jb arenas in the presence of Butch Giraldo M.D. Electronically Signed: Reggie Alamo. June 24, 2020 1:05 PM . Provider Attestation: Emelyn Howe MD, personally perfor med the services described in this documentation. All medical record entrie s made by the scribe were at my direction and in my presence. I have rev iewed the chart and discharge instructions (if applicable) and agree t hat the record reflects my personal performance and is accurate and complete. Electronically Signed: Emelyn Giraldo MD. July 01, 2020 11:02 AM Progress note 06-08-2020 Note Date & Type Note Facility 06-08-2020 Note HNO ID: [id number] [facility] Author: Jackie Banks Service: ? Author Type: Time Study Observer Type: Progress Notes Filed: 06/08/2020 1:01 PM Note Text: POPULATION HEALTH NAVIGATION OUTREACH Action/FYI Patient is due for dilated retinal exam. Patient had ALLYSSA with Dr. Santiago in [place] on 02/05/2020. Will have results sent Contact made with patient or family memb er? YES Pt identified by name and : YES Outreach Outcome/Action Spoke to patient or caregiver: Patient s cheduled Reason for Outreach Care Gap or Scheduling/Wellness visits Payer: Payor: T [facility]IC[facility] / [facility] / Product Type: PPO / Care Gap Reviewed:: Diabetic Eye Exam Reminder: Reminder note to check Health Maintenance for items below Health Maintenance items due: BP CONTROLLED (<130/80) Completed DTAP,TDAP,TD(2 - Tdap) due on 07/17/2008 ADVANCE DIRECTIVE DISCUSSION due on 04/14 DIABETIC FOOT EXAM due on 05/04/2019 DEPRESSION SCREENING due on 05/04/2019 ANNUAL PCP TEAM CHRONIC DISEASE VISIT zaid e on 01/31/2020 HBA1C due on 04/19/2020 DILATED RETINAL EXAM due on 04/25/2020 LDL CHOLESTEROL due on 05/04/2020 SERUM CREATININE due on 05/04/2020 Advanced Directives Completed: Have you ever planned for future healthc are decisions with a power of criminal defense attorney, living will, or advance direct rosalinda? No. Please bring a copy to your next appointment or email to [email or web address] Referrals: N/A Message Sent to Practice: NO Navigation Signature: Jackie Banks Population Health Shannan r June 08, 2020 1:00 PM Clinical Note 06-08-2020 Note Date & Type Note Facility 06-08-2020 Note Patient Outreach (KETTY) [facility] FRANCISCO THOMAS ([id number]) 1940 M Date Time Provider Department 06/08/20 JACKIE BANKS During your visit today, we recorded the following information about you: Jackie Banks Population Health Alineato r 06/08/2020 1:01 PM Signed POPULATION HEALTH NAVIGATION OUTREACH Action/ Patient is due for dilated retinal exam. Patient had ALLYSSA with Dr. Suzi bettencourt in [place] on 02/05/2020. Will have results sent Contact made with patient or family memb er? YES Pt identified by name and : YES Outreach Outcome/Action Spoke to patient or caregiver: Patient s cheduled Reason for Outreach Care Gap or Scheduling/Wellness visits Payer: Payor: JULIANGustavoMARCELINO MEDICARE / Plan: AETMARCELINO [facility] C[facility] PPO / Product Type: PPO / Care Gap Reviewed:: Diabetic Eye Exam Reminder: Reminder note to check Health Maintenance for items below Health Maintenance items due: BP CONTROLLED (<130/80) Completed DTAP,TDAP,TD(2 - Tdap) due on 07/17/2008 ADVANCE DIRECTIVE DISCUSSION due on 04/14 DIABETIC FOOT EXAM due on 05/04/2019 DEPRESSION SCREENING due on 05/04/2019 ANNUAL PCP TEAM CHRONIC DISEASE VISIT [place] on 01/31/2020 HBA1C due on 04/19/2020 DILATED RETINAL EXAM due on 04/25/2020 LDL CHOLESTEROL due on 05/04/2020 SERUM CREATININE due on 05/04/2020 Advanced Directives Completed: Have you ever planned for [facility] healthcare decisions with a power of criminal defense attorney, living will, or advance directives? No. Please bring a copy to your next appointment or email to ADVANCEDIRECTIVE Referrals: N/A Message Sent to Practice: NO Navigation Signature: Jackie Banks Population Health Navigato r June 08, 2020 1:00 PM Allergies As of Date: 06/08/2020 Noted A llergy Reaction CHOLESTYRAMINE 03/30/2012 14 - Other: Se e Comments Comments: caused low blood sugar MOBIC (MELOXICAM) 05/21/2009 7 - Swellin g 9 - Itching PRAVACHOL (PRAVASTATIN SODIUM) 0 5 - Intolerance Comments: Myalgias. Date Reviewed: 01/30/2019 Reviewed by: Rosy Fleming Ma - Fully Assessed Reason for Visit: Population [facility] Navigation Outreach [3 910] Cmt: Deferred Care Prescriptions as of 06/08/2020 Sig: AMLODIPINE 5 MG TABLET Take 1 tablet by mouth once d* LOSARTAN 100 MG TABLET Take 1 tablet by mouth once d* BLOOD PRESSURE MONITOR KIT Use to check blood pressure d* GERARDO BASILIO U-100 INSULI* Inject 25 Units subcutaneousl* PEN NEEDLE, DIABETIC 32 GAUGE* Use to in ject insulin and Alfie* HYDROCHLOROTHIAZIDE 25 MG TAB* Take 1 ta blet by mouth once d* POTASSIUM CHLORIDE ER 20 MEQ * Take 1 ta blet by mouth twice * LIRAGLUTIDE 0.6 MG/0.1 ML (18* Inject 1. 2 mg subcutaneously * TRAMADOL 50 MG TABLET Take 50-100 mg by mouth every* ONETOUCH ULTRA TEST STRIPS Use to check blood sugar thre* METFORMIN ER 500 MG TABLET,EX* Take 2 ta blets by mouth twice* LANCETS Test blood sugar four times d* LATANOPROST 0.005 % EYE DROPS Use 1 Drop in both eyes daily* * THERAPEUTIC MULTIVITAMIN TABL* Take on e(1) tablet daily. Problem List As Of Date 06/08/2020 Noted Resolved Chronic pain of right knee [M25.561, G89 .29] 12/31/2005 MIXED HYPERLIPIDEMIA [E78.2] 12/31/2005 Essential hypertension [I10] 12/31/2005 Uncontrolled type 2 diabetes mellitus wi th micr*06/10/2009 Chronic bilateral low back pain with rig ht-side*02/01/2012 Recurrent inguinal hernia [K40.91] 06/22 DM (diabetes mellitus), type 2, uncontro lled, w*02/19/2015 Encounter Status:Closed by Prashant APPIAH POPULATION HEALTH NAVIGATORJACKIE on 06/08/20 Clinical Note 04-15-2020 Note Date & Type Note Facility 04-15-2020 Note Patient Outreach (COOCC3) [facility] FRANCISCO THOMAS ([id number]) 1940 M Date Time Provider Department 04/15/20 EDILMA MCNEAL3 During your visit today, we recorded the following information about you: Allergies As of Date: 04/15/2020 Noted A llergy Reaction CHOLESTYRAMINE 03/30/2012 14 - Other: Se e Comments Comments: caused low blood sugar MOBIC (MELOXICAM) 05/21/2009 7 - Swellin g 9 - Itching PRAVACHOL (PRAVASTATIN SODIUM) 0 5 - Intolerance Comments: Myalgias. Date Reviewed: 01/30/2019 Reviewed by: Rosy Fleming Ma - Fully Assessed Order(s):SARS-COVID VACCINE 1ST DOSE APPT [[id number]] Order #: [id number] FUTURE Prescriptions as of 04/15/2020 Sig: LOSARTAN 100 MG TABLET Take 1 tablet by mouth once d* BLOOD PRESSURE MONITOR KIT Use to check blood pressure d* BASAGLAR KWIKPEN U-100 INSULI* Inject 25 Units subcutaneousl* PEN NEEDLE, DIABETIC 32 GAUGE* Use to in ject insulin and Alfie* AMLODIPINE 5 MG TABLET Take 1 tablet by mouth once d* HYDROCHLOROTHIAZIDE 25 MG TAB* Take 1 ta blet by mouth once d* POTASSIUM CHLORIDE ER 20 MEQ * Take 1 ta blet by mouth twice * LIRAGLUTIDE 0.6 MG/0.1 ML (18* Inject 1. 2 mg subcutaneously * TRAMADOL 50 MG TABLET Take 50-100 mg by mouth every* ONETOUCH ULTRA TEST STRIPS Use to check blood sugar thre* METFORMIN ER 500 MG TABLET,EX* Take 2 ta blets by mouth twice* LANCETS Test blood sugar four times d* LATANOPROST 0.005 % EYE DROPS Use 1 Drop in both eyes daily* * THERAPEUTIC MULTIVITAMIN TABL* Take on e(1) tablet daily. Problem List As Of Date 04/15/2020 Noted Resolved Chronic pain of right knee [M25.561, G89 .29] 12/31/2005 MIXED HYPERLIPIDEMIA [E78.2] 12/31/2005 Essential hypertension [I10] 12/31/2005 Uncontrolled type 2 diabetes mellitus wi th micr*06/10/2009 Chronic bilateral low back pain with rig ht-side*02/01/2012 Recurrent inguinal hernia [K40.91] 06/22 DM (diabetes mellitus), type 2, uncontro lled, w*02/19/2015 Encounter Status:Closed by LOYAL3 AnjukeDAVID R on 04/18/20 Summary Purpose Family History No Family History Records FoundNo Family History Records Found Advance Directives No Advanced Directives Records FoundNo Advanced Directives Records Found Additional Source Comments (unrecognized section and cont ent) No Status Records FoundNo Preg maik Status Records Found INFORMATION SOURCE (unrecognized section and content) DATE CREATED AUTHOR AUTHOR'S ORGANIZ ATION 03/08/2019 [facility] ation ([place]) DATE CREATED AUTHOR AUTHOR'S ORGANIZATIO N 04/05/2021 [facility] FOR RECORDS PERTAINING TO PATIENTS WHO ARE OR HAVE BEEN ENROLLED IN A CHEMICAL DEPENDENCY/SUBSTANCE ABUSE PROGRAM, SOME INFORMATION MAY BE OMITTED. This clinical summary was aggregated from multiple sources. Caution should be exercised in using it in the provision of clinical care. This summary normalizes information from multiple sources, and as a consequence, information in this document may materially change the coding, format and clinical context of patient data. In addition, data may be omittedin some cases. CLINICAL DECISIONS SHOULD BE BASED ON THE PRIMARY CLINICAL RECORDS. [facility] [employer] provides no warranty or guarantee of the accuracy or completeness of information in this document.
--- NOTE | 2022-02-24 14:43 | EKG12_ITS ---
Test Reason : Blood Pressure : / mmHG Vent. Rate : 060 BPM Atrial Rate : 060 BPM P-R Int : 150 ms QRS Dur : 080 ms QT Int : 442 ms P-R-T Axes : 037 067 056 degrees QTc Int : 442 ms Normal sinus rhythm Normal ECG Confirmed by ADÁN STRONG, MAKENNA ([id number]), legal editor AP NUNEZ ([id number]) on 02/26/2022 10:44:00 AM Referred By: Confirmed By:JOSHUA MCCAIN MD
--- NOTE | 2022-02-24 14:43 | CT_ITS ---
STUDY: CT BRAIN WITHOUT CONTRAST REASON FOR EXAM: Male, 81 years old. Head injury RADIATION DOSAGE (If Supplied By Facility): CTDIvol = ( 44.99 ) mGy, DLP = ( 829.85 ) mGycm TECHNIQUE: Transaxial CT imaging of the brain was performed without administration of intravenous contrast material. Individualized dose optimization techniques were used for this CT. COMPARISON: Comparison is made with prior study dated 01/02/2021. FINDINGS: Normal soft tissue structures. Normal calvarium. There is mild cerebral atrophy with widening of the extra-axial spaces and ventricular dilatation. There are areas of decreased attenuation within the white matter tracts of the supratentorial brain, consistent with microvascular disease changes. 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 Normal brainstem. Normal cerebellum. There is no intracranial hemorrhage. There are no findings of an acute ischemic infarction. Atherosclerotic calcification of the vertebral arteries and cavernous portions of the internal carotid arteries bilaterally. Normal visualized paranasal sinuses. CT/Brain/Head without Contrast IMPRESSION: Chronic involutional changes of the brain. Electronically Signed: Micah Murrieta MD at 15:34 EST ,
--- NOTE | 2022-02-24 14:47 | EDS_ITS ---
HPI HPI - Fall History of Present Illness Chief Complaint: Fall Detail of Chief Complaint: Last night. Complaining of left rib cage pain. Weakness today. Informant: patient and family Occured/Mechanism Occurred: Yesterday Mechanism/Context: Yes same level fall Narrative: For patient lost balance. Pain/Injury Pain Location: head and chest Quality of Pain: Dull and Aching Current Severity: Moderate Maximum Severity: Moderate Associated Symptoms Associated Symptoms: Positive for Weakness and Inability to ambulate; Negative for Parasthesias, Loss of function, Loss of consciousness or Amnesia Narrative Narrative: 81-year-old male past medical history of left-sided stroke where he cannot use his left arm is weak with the left. He also has diabetes. He is on aspirin and Plavix. He lives at home with his and both the and the daughter help him significantly. They do help him walk. But he can walk with assistance and a walker. Yesterday states he lost his balance fell hit a chest pain his left forehead and left rib cage. He remained at home last night. Today he was very weak at home and point where he cannot even ambulate. He denies any illness. Denies nausea, vomiting or diarrhea. He was recently hospitalized he was placed on as needed oxygen which she needs at this time around 2 L. Prior similar symptoms: Yes Recent Illness/Hospitalization: Yes [facility] Medical History Absent pedal pulses Acute left-sided muscle weakness Depression Dysphagia Essential hypertension Facial droop due to acute stroke History of CVA (cerebrovascular accident) (12/2020) Hydrocele in adult Hyperlipidemia Normocytic normochromic anemia Osteoarthritis Peripheral vascular occlusive disease Proteinuria due to type 2 diabetes mellitus Recurrent inguinal hernia of right side without obstruction or gangrene Restless legs Right pontine CVA Right renal artery stenosis Skin lesion of face Type 2 diabetes mellitus Home Medications multivitamin,[id number]-[id number] (Complete Multivitamin tablet) 1 tab PO QDAY supplement 03/03/17 [History Last Taken 02/16/22] aspirin 81 mg chewable tablet 81 mg PO BREAKFAST heart health 01/02/21 [History Last Taken 02/16/22] Arthritis Pain Compound 0 click topical BID ##0 01/27/21 [Rx Last Taken Unknown] latanoprost 0.005 % eye drops 1 drp EACH EYE HS #0 mL 01/27/21 [Rx Last Taken 02/15/22] Handicap Placard #1 ea 02/12/21 [Rx Last Taken Unknown] gabapentin 100 mg capsule 100 mg PO BID #40 caps 02/26/21 [Rx Last Taken 02/15/22] gabapentin 300 mg capsule 300 mg PO 2100 #20 caps 02/26/21 [Rx Last Taken 02/15/22] pen needle, diabetic 32 gauge x 5/32 (BD Sanaz 2nd Gen Pen Needle) #50 ea 06/02/21 [Rx Last Taken Unknown] doxazosin 8 mg tablet 8 mg PO QHS #90 tabs 09/29/21 [Rx Last Taken 02/15/22] pramipexole 0.125 mg tablet 0.125 mg PO QHS #90 tabs 10/13/21 [Rx Last Taken 02/15/22] carvedilol 25 mg tablet 25 mg PO BID #180 tabs 01/06/22 [Rx Last Taken 02/16/22] clopidogrel 75 mg tablet (Plavix) 75 mg PO DAILY #90 tabs 01/06/22 [Rx Last Taken 02/16/22] ezetimibe 10 mg tablet (Zetia) 10 mg PO DAILY #90 tabs 01/06/22 [Rx Last Taken 02/15/22] sertraline 50 mg tablet 50 mg PO DAILY #90 tabs 01/06/22 [Rx Last Taken 02/16/22] insulin glargine 100 unit/mL (3 mL) subcutaneous pen (Basaglar KwikPen U-100 Insulin) 10 unit subcut DAILY Diabetes 02/16/22 [History Last Taken 02/16/22] metformin 500 mg tablet 500 mg PO DAILY DIABETES 02/16/22 [History Last Taken 02/16/22] amlodipine 10 mg tablet 10 mg PO DAILY Check with primary doctor 02/18/22 [History Last Taken Unknown] hydralazine 50 mg tablet 100 mg PO TID #180 tabs 02/20/22 [Rx Last Taken Unknown] levofloxacin 750 mg tablet 750 mg PO Q48H #4 tabs 02/20/22 [Rx Last Taken Unknown] losartan 100 mg tablet 100 mg PO DAILY #30 tabs 02/20/22 [Rx Last Taken Unknown] Allergy/AdvReac Type Severity Reaction Status Date / Time meloxicam [From [facility]] Allergy Intermediate itching Verified 02/24/22 13:22 pravastatin [From Pravachol] AdvReac Mild myalgia Verified 02/24/22 13:22 cholestyramine AdvReac hypoglycemi Verified 02/24/22 13:22 a Family History Mother Hypertension Cancer Father Heart disease Diabetes Surgical History History of cataract surgery History of herniorrhaphy History of lumbar laminectomy History of stent insertion of renal artery (08/05/21) Status post laser cataract surgery of left eye Social History household members: spouse and other details: Abigail is his 's name housing: house number of children: 2 current occupational status: retired and other details: worked for [employer] prior to retiring leisure activities: other Smoking Status: Never smoker Electronic Cigarette Use: not used alcohol intake: former substance use type: does not use what type of physical activity do you participate in: walking frequency: 1-2 times per week ROS ROS ED ROS Narrative Denies recent illness. Review of Systems ROS Unobtainable: Denies due to encephalopathy Constitutional Constitutional ED: Denies chills or fever(s) Eyes Eyes: Denies blurry vision ENT ENT ED: Denies ear pain Cardiovascular Cardiovascular: Denies chest pain Respiratory/Chest Respiratory/Chest: Denies cough or dyspnea Gastrointestinal Gastrointestinal: Denies abdominal pain Genitourinary Genitourinary ED: Denies dysuria or hematuria Musculoskeletal Musculoskeletal: Denies arthralgias Integumentary Denies abscess Neurologic Neurologic: Denies headache(s) Psychiatric Psychiatric: Denies anxiety or depression Endocrine Endocrinology: Denies polydipsia Hematologic/Lymphatic Hematologic/Lymphatic: Denies easy bleeding or easy bruising Allergic/Immunologic Allergic/Immunologic ED: Denies mouth swelling or tongue swelling EXAM Physical Exam Narrative Exam Narrative: 7-year-old male no acute distress vital signs stable afebrile. Pulse ox 97% on 2 L no hypoxia. H EENT exam abrasion left forehead. Pupils round reactive l ight. Left facial droop which is old. Tongue midline mildly dry. Scalp nontender. Neck nontender. Trachea midline. Lungs clear to auscultation bilaterally. Heart regular rhythm rate about 60 no murmur. Left lateral rib cage tenderness. Abdomen soft nontender normal bowel sounds no peritoneal signs. Pelvic girdle intact. He has had a prior stroke he does not really move his left arm he can lift his left leg weakly. His right arm and right leg are unremarkable with normal strength. He does have edema in his left lower leg. Neurologically is awake and alert. He answers questions follows commands. He is significantly weak on the left side compared to the right from his prior stroke that is old. Const Vital Signs: 02/24/22 13:23 02/24/22 13:30 Temperature 97.9 F Temperature Source Temporal Pulse Rate 62 Respiratory Rate 18 Respiratory Effort Normal Non-Labored Respiratory Depth Normal Respiratory Pattern Normal Blood Pressure 125/50 H Blood Pressure Mean 75 Pulse Ox 97 Oxygen Delivery Method Room Air Room Air Positive well nourished, well developed and obese; Negative for cachectic, contractures or unkempt General Appearance ED: well developed and NAD; Negative for unkempt, cachectic or contractures Nutritional Appearance: obese; Negative for cachectic HEENT Reports normocephalic HEENT Narrative: Abrasion left forehead. Left facial droop old. Mild dry tongue. trauma and contusion; Negative for atraumatic, hematoma or tenderness Eyes PERRL and EOMs intact bilaterally General Eye ED: Negative for pale conjunctiva or scleral icterus Neck full ROM, no lymphadenopathy and supple General: Negative for tenderness Chest Wall inspection of chest normal; Negative for palpation of chest normal Chest Narrative: Tenderness left rib cage. Resp normal respiratory effort, no retractions and clear to auscultation bilaterally Effort and Inspection: Negative for pain with movement Auscultation: Negative for rales, rhonchi or wheezes Cardio regular rate, regular rhythm, S1 normal heart sound, S2 normal heart sound and no murmurs Rate: Negative for bradycardia or tachycardic Rhythm: Negative for abnormal rhythm Bruits: Negative for other GI non-tender, non-distended and no masses Inspection: Negative for abdominal distention Auscultation: normoactive bowel sounds Palpation: soft; Negative for guarding or rebound tenderness present Back/Spine no CVA tenderness General Back: Negative for CVA tenderness Cervical Spine: Negative for cervical spine tenderness Lumbar Spine / Lower Back: Negative for lumbar spinal tenderness Neuro No moves all extremities Neuro Narrative: Prior stroke. Left facial droop old. Left arm paralysis. Left leg weakness. Both old from his prior stroke. Awake alert. Answering questions. Following commands. Normal right arm strength and right leg strength. Justa Coma Scale: document GCS findings Spontaneous Obeys Commands Oriented 15 Sensorium / Orientation: alert, oriented to person, oriented to place and oriented to time; Negative for orientation impaired, confused, lethargic or stuporous Motor Exam: general weakness Psych mental status grossly normal and thought process normal Appearance: Negative for unkempt Attitude: No agitated Mood & Affect: Negative for depressed, anxious or tearful Skin General Skin Exam: Negative for other Lesions: no lesions Rashes: no rashes and No rashes noted Trauma: abrasion MDM MDM MDM Narrative Medical decision making narrative: 81-year-old male fall at home prior stroke generalized weakness. Undergo work-u p including CAT scan of his head due to him being on aspirin and Plavix and hitting his head. Chest x-ray due to weakness and left rib cage pain. And screening labs. I suspect that this time most likely he will need to be admitted because at home to his family and we will care for him at home. Repeat exam is unchanged at 3:50 PM. Had a lengthy discussion with his . At this time is just too much for her to handle and her daughter to handle at home but if at all possible they would like him to come home again. I will speak to the hospitalist about admission. She and I discussed and went over all his test results. Lab Data Attestation: I reviewed the patient's lab results. Lab results narrative: CBC shows a white count 10.4 H&H 8.7 and 25.7 consistent with baseline anemia. Platelets 260. Electrolytes show a gap of 6 BUN of 60 creatinine 1.96 consistent with dehydration and renal insufficiency. Glucose 227. CAT scan of brain shows chronic changes. Labs are consistent with his prior chronic anemia and renal insufficiency. He may also have a acute dehydration on top of his renal insufficiency. Labs: Laboratory Results - last 24 hr 02/24/22 02/24/22 15:00 15:00 WBC 10.4 RBC 2.78 L Hgb 8.7 L Hct 25.7 L MCV 92.4 MCH 31.3 MCHC 33.9 RDW Std Deviation 48.8 H RDW Coeff of Cait 14.3 Plt Count 260 MPV 10.7 Immature Gran % (Auto) 0.800 Neut % (Auto) 73.9 H Lymph % (Auto) 10.5 L [place] % (Auto) 9.9 Eos % (Auto) 4.4 Baso % (Auto) 0.5 Absolute Neuts (auto) 7.7 Absolute Lymphs (auto) 1.09 Nucleated RBC % 0 Sodium 138 Potassium 4.6 Chloride 107 Carbon Dioxide 25.0 Anion Gap 6 BUN 60 H Creatinine 1.96 H Estim Creat Clear Calc 28.11 Est GFR (MDRD) Af Amer 42 L Est GFR (MDRD) Non-Af 35 L BUN/Creatinine Ratio 30.6 H Glucose 227 H Calcium 8.7 Radiography Diagnostic Testing: Clinical Impression(s) from Imaging Studies Brain CT 02/24/22 14:43 IMPRESSION: Chronic involutional changes of the brain. Electronically Signed: Micah Murrieta MD at 15:34 EST , Chest X-Ray 02/24/22 15:16 IMPRESSION: Progressive infiltrates in both upper lobes more prominent on the left side. Left lower lobe infiltrate. Electronically Signed: Micah Murrieta MD at 15:30 EST , Chest x-ray, portable, single view he has bilateral upper lobe infiltrates which have been seen in the last few chest x-rays it does appear to be worse. No obvious rib fracture on the x-ray. Rhythm Strip Rhythm Strip: Sinus Rhythm Rate: 60 Ectopy: None EKG Initial EKG: Attestation: I personally reviewed and interpreted this EKG as follows: Interpretation: Sinus Rhythm and No Acute Injury Pattern Comments: Normal sinus rhythm rate of 60 no acute signs of IL or ischemia. Discharge Plan Triage Chief Complaint: Fall ED Provider: Miguel Siu Dx/Rx/DC Orders Clinical Impression: Fall, History of stroke, Head injury, Contusion of rib on left side, Generalized weakness, Unable to ambulate, Chronic anemia, Acute on chronic renal insufficiency, Dehydration, History of aspiration pneumonia, History of diabetes mellitus Prescriptions: No Action multivitamin,hy-wsef-yxogknhr tablet tablet 1 tab PO QDAY aspirin 81 mg tablet,chewable 81 mg PO BREAKFAST latanoprost 0.005 % Drops 1 drp EACH EYE HS Qty: 0 0RF Arthritis Pain Compound 0 click topical BID Qty: 0 0RF metformin 500 mg tablet 500 mg PO DAILY insulin glargine [Basaglar KwikPen U-100 Insulin] 100 unit/mL (3 mL) insulin pen 10 unit SUBCUT DAILY amlodipine 10 mg Tablet 10 mg PO DAILY hydralazine 50 mg Tablet 100 mg PO TID Qty: 180 1RF levofloxacin 750 mg Tablet 750 mg PO Q48H Qty: 4 0RF Rx Instructions: Take only every other day losartan 100 mg Tablet 100 mg PO DAILY Qty: 30 1RF (DME) Handicap Placard See Rx Instructions .Route .MEDSUPPLY Qty: 1 0RF Rx Instructions: Length of time: 5 years gabapentin 300 mg capsule 300 mg PO 2100 Qty: 20 0RF gabapentin 100 mg capsule 100 mg PO BID Qty: 40 0RF (DME) pen needle, diabetic [BD Sanaz 2nd Gen Pen Needle] 32 gauge x 5/32 needle See Rx Instructions .ROUTE .MEDSUPPLY Qty: 50 2RF Rx Instructions: use once daily to adminster insulin as directed. doxazosin 8 mg tablet 8 mg PO QHS Qty: 90 3RF pramipexole 0.125 mg tablet 0.125 mg PO QHS Qty: 90 3RF clopidogrel [Plavix] 75 mg tablet 75 mg PO DAILY Qty: 90 3RF sertraline 50 mg tablet 50 mg PO DAILY Qty: 90 3RF carvedilol 25 mg tablet 25 mg PO BID Qty: 180 3RF Rx Instructions: must administer with a meal/food ezetimibe [Zetia] 10 mg tablet 10 mg PO DAILY Qty: 90 3RF Rx Instructions: take at bedtime Primary Care Provider: Jennifer Watt Referrals: Jennifer Watt MD [Primary Care Provider] - Disposition Disposition: Acute Care Hospital [facility]
[2022-02-24] MEDS: 0.9% Normal Saline 1,000 ML 1000 ML IV (15:03)
--- NOTE | 2022-02-24 15:16 | RAD_ITS ---
STUDY: X-RAY CHEST REASON FOR EXAM: Male, 81 years old. Weakness TECHNIQUE: Single AP portable view of the chest. COMPARISON: Comparison is made with prior study dated 02/17/2022. FINDINGS: EKG electrodes are seen. Since prior study, there has been progressive consolidation in both upper lobes worse in the left upper lobe. Persistent left lower lobe infiltrate. There is no demonstrated pleural abnormality. Normal size heart. Normal mediastinum and arianne. Normal visualized pulmonary arteries. There is atherosclerotic calcification of the aortic arch with tortuosity. There are diffuse degenerative changes of the visualized thoracic spine. Normal visualized ribs, clavicles, and shoulders. There is no demonstrated abnormality of the visualized soft tissue structures of the upper abdomen. RAD/Chest 1 View (Portable) IMPRESSION: Progressive infiltrates in both upper lobes more prominent on the left side. Left lower lobe infiltrate. Electronically Signed: Micah Murrieta MD at 15:30 EST ,
[2022-02-24 15:24] LABS: Absolute Lymphocyte Count 1.09 X10^3/uL (0.83-4.51); Absolute Neutrophil Count 7.7 X10^3/uL (2.0-7.7); Basophil# 0.05 X10^3/uL; Basophil% 0.5 % (0-1); Eosinophil# 0.46 X10^3/uL; Eosinophils% 4.4 % (0-5); Hematocrit 25.7 % (40-54); Hemoglobin 8.7 g/dL (13.0-16.5); Lymphocyte # 1.09 X10^3/ul (0.83-4.51); Lymphocyte % 10.5 % (19-41); Mean Corp Hgb Conc 33.9 g/dL (32-36); Mean Corpuscular Hgb 31.3 pg (27.0-32.0); Mean Corpuscular Volume 92.4 fL (80-94); Mean Platelet Vol. 10.7 fl (6.2-12.0); Monocyte# 1.03 X10^3/uL; Monocyte% 9.9 % (0-10); NRBC Flagged by Analyzer 0 % (0-5); Neutrophil # 7.71 X10^3/uL (2.7-7.7); Neutrophil % 73.9 % (47-70); Platelet Count 260 K/mm3 (150-450); RBC Distribution Width CV 14.3 % (11.6-14.6); RBC Distribution Width SD 48.8 fl (35.1-43.9); Red Blood Count 2.78 M/mm3 (4.6-6.2); White Blood Count 10.4 K/mm3 (4.4-11.0)
--- OUTSIDE RECORDS SUMMARY | 2022-02-24 15:28 | XMS RPT_ITS | CCD ---
:1940 Author Organization [facility] Results Test Name Value Interpretation Reference Range Facility [facility] on 02-02-2021 [facility] Telephone (FPWADS) [facility] FRANCISCO THOMAS ([id number]) 1940 [facility] Date Time Provider Department 02/02/21 EMELYN GIRALDO During your visit today, we recorded the following inf ormation about you: Kelvin Conn 02/02/2021 10:02 AM Signed Received orders from [facility]. Placed in provider's inbox for review. Route to [place] Allergies As of Date: 02/02/2021 Noted Allergy Reactio n CHOLESTYRAMINE 03/30/2012 14 - Other: See Comments Comments: caused low blood sugar MOBIC (MELOXICAM) 05/21/2009 7 - Swelling 9 - Itching PRAVACHOL (PRAVASTATIN SODIUM) 12/22/2009 5 - Intolera nce Comments: Myalgias. Date Reviewed: 12/24/2020 Reviewed by: Curly Dennison [facility] - Fully Assessed Reason for Visit: Orders [[id number]] Cmt: [facility] Prescriptions as of 02/02/2021 - insulin glargine [...] to check blood pressure daily. - Insulin [place], Disposabl e, (BD ULTRA-FINE SHEBA PEN NEEDLE) 32 gauge x 5/32 Use to inject insulin and Victoza, 2 injections per da y. - potassium chloride ER (KLOR-CON M20) 20 mEq tablet Take 1 tablet by mouth twice daily. - traMADol (ULTRAM) 50 mg tablet Take 50-100 mg by mouth every 6 hours as needed. - blood sugar diagnostic (AirMediaTOUCH ULTRA TEST) test st rip Use to check blood sugar three times daily. - Lancets (AirMediaTOUCH ULTRASOFT LANCETS) lancets Test blood sugar four [...] (HCC) [I63.219] 12/31/2020 Encounter Status:Closed by KELVIN CONN on ABRAHAM [facility] FRANCISCO Grace ([id number]) 1940 [facility] Date Time Provider Department 01/28/21 EMELYN GIRALDO [...] Dr will Follow Please call Caroline Brizuela APRN.ENGINEERING VICE PRESIDENT 01/28/2021 3:59 PM S igned Please call [...] Fully Assessed Reason for Visit: Patient Question [1607] Patient Update [[id number]] Prescriptions as of 01/29/2021 - insulin glargine [...] to check blood pressure daily. - Insulin [place], Disposabl e, (BD ULTRA-FINE SHEBA PEN NEEDLE) [...] HERLINDA ROBERTO MA on CNPN on 01-06-20[facility] FRANCISCO Grace ([id number]) 1940 [facility] Date Time Provider Department 01/06/21 EMELYN GIRALDO During your visit today, we recorded the following inf ormation about you: Kelvin Conn 01/06/2021 9:45 AM Signed Received update from [facility]. Placed in provider's i nbox for review. Route to MA Scanning Allergies As of Date: 01/06/2021 Noted Allergy Reactio n CHOLESTYRAMINE 03/30/2012 14 - Other: See Comments Comments: caused low blood sugar MOBIC (MELOXICAM) 05/21/2009 7 - Swelling 9 - Itching PRAVACHOL (PRAVASTATIN SODIUM) 12/22/2009 5 - Intolera nce Comments: Myalgias. Date Reviewed: 12/24/2020 Reviewed by: Curly Dennison [facility] - Fully Assessed Reason for Visit: Patient Update [1234] Cmt: [facility] Prescriptions as of 01/06/2021 - insulin [...] to check blood pressure daily. - Insulin [place], Disposabl e, (BD ULTRA-FINE SHEBA PEN NEEDLE) [...] on CNPN on 01-02-2021 [facility] Telephone (FPWADS) [facility] FRANCISCO Grace ([id number]) 1940 [facility] Date Time Provider Department 01/02/21 EMELYN GIRALDO During your visit today, we recorded the following inf ormation about you: Fide Hussein MA 01/02/2021 1:40 PM Signed Received MRI Brain without contrast from [facility]. Placed in provider's inbox for review. Route to AR for scanning Allergies As of Date: 01/02/2021 Noted Allergy Reactio n CHOLESTYRAMINE 03/30/2012 14 - Other: See Comments Comments: caused low blood sugar MOBIC (MELOXICAM) 05/21/2009 7 - Swelling 9 - Itching PRAVACHOL (PRAVASTATIN SODIUM) 12/22/2009 5 - Intolera nce Comments: Myalgias. Date Reviewed: 12/24/2020 Reviewed by: Curly Dennison [facility] - Fully Assessed Reason for Visit: MRI Report [[id number]] Cmt: [facility] Prescriptions as of 01/02/2021 - insulin glargine [...] to check blood pressure daily. - Insulin [place], Disposabl e, (BD ULTRA-FINE SHEBA PEN NEEDLE) [...] Encounter Status:Closed by FIDE HUSSEIN on 01/02/21 [facility] FRANCISCO Grace ([id number]) 1940 [facility] Date Time Provider Department 01/02/21 EMELYN GIRALDO [...] Fully Assessed Reason for Visit: Film Cath/Echo [[id number]] Prescriptions as of 01/07/2021 - insulin glargine [...] to check blood pressure daily. - Insulin [place], Disposabl e, (BD ULTRA-FINE SHEBA PEN NEEDLE) [...] 01/07/21 CNP[facility] on 12-31-2020 [facility] Telephone (FPWADS) [facility] FRANCISCO Grace ([id number]) 1940 [place] Date Time Provider Department 12/31/20 EMELYN GIRALDO FPMARGARET During your visit today, we recorded the following inf ormation about you: Kelvin Conn 12/31/2020 9:31 AM Signed Received update from [facility]. Placed in provider's inbo x for review. Route to MA Scanning Allergies As of Date: 12/31/2020 Noted Allergy Reactio n CHOLESTYRAMINE 03/30/2012 14 - Other: See Comments Comments: caused low blood sugar MOBIC (MELOXICAM) 05/21/2009 7 - Swelling 9 - Itching PRAVACHOL (PRAVASTATIN SODIUM) 12/22/2009 5 - Intolera nce Comments: Myalgias. Date Reviewed: 12/24/2020 Reviewed by: Curly Dennison [facility] - Fully Assessed Reason for Visit: Patient Update [1234] Cmt: [facility] Prescriptions as of 12/31/2020 - insulin [...] to check blood pressure daily. - Insulin [place], Disposabl e, (BD ULTRA-FINE SHEBA PEN NEEDLE) [...] Visit (PHMEWO) [facility] FRANCISCO Grace ([id number]) 1940 [facility] Date Time Provider Department 12/24/20 1:30 PM CURLY DENNISON SONU During your visit today, we recorded the following inf ormation about you: Pulse Blood pressure 70/minute 161/77 Curly Dennison [facility] 01/01/2021 4:10 PM Signed Primary Care Pharmacy [...] are not present. Adherence: denies missed doses Pharmacy:?[facility] order? Rx coverage:?Medicare Affordability:?insulin and Victoza costly Diabetes supplies:?[employer] [facility] System:?none ACTIVE PROBLEM LIST Chronic Pain of [...] check blood pressure d arsh. - Insulin [place], Disposabl e, (BD ULTRA-FINE SHEBA PEN NEEDLE) [...] (MEO) [facility] RADHAFRANCISCO Mcgowan ([id number]) 1940 [place] Date Time Provider Department 11/27/20 2:30 PM DIONE CHANG During your visit today, we recorded the following inf ormation about you: Pulse Blood pressure 73/minute 137/61 Dione Chang [facility] 11/27/2020 3:15 PM Signed Patient consents to [...] are not present Adherence: denies missed doses Pharmacy:?[facility] order? Rx coverage:?Medicare Affordability:?insulin and Victoza costly Diabetes supplies:?[employer] System:?none Past medical, family and social [...] Inject 30 Units subcutaneously every morning. Insulin [place], Disposable, (BD ULTRA-FINE SHEBA PEN NEEDLE) 32 gauge x Use to inject insulin and Victoza, 2 injections per da y. Lancets (more content not included)... CNOV on 10-23-2020 CNOV Office Visit ([facility]) [facility] FRANCISCO THOMAS ([id number]) 1940 [place] Date Time Provider Department 10/23/20 3:00 PM DIONE CHANG During your visit today, we recorded the following inf ormation about you: Pulse Blood pressure 77/minute 156/68 Dione Chang [facility] 10/23/2020 4:17 PM Signed Patient consents to pharmacy collaborative practice [facility]. REASON FOR CONSULT: DM?and BP GOALS: A1c CONSULTING PROVIDER:??Emelyn Giraldo Date of Consult:?01/30/19 ? Francisco Thomas is a 80 year ol d male was last seen by PCP, Dr. Eemlyn Giraldo MD on?06/24/2020. ? Patient is presenting [...] losartan was switched to valsartan. At [facility] t PharmD visit on 09/18, patient noted [...] not present Adherence: denies missed doses Pharmacy: [facility] order Rx coverage: Medicare Affordability: insulin [...] Inject 30 Units subcutaneously every morning. Insulin [place], Disposable, (BD ULTRA-FINE SHEBA PEN NEEDLE) 32 gauge x 5/32 Use to inject insulin and Victoza, 2 injections per da y. Lancets (ONETOUCH ULTRASOFT LANCETS) lancets Test blood sugar four times daily. Uncontrolled diabetes type 2 on insulin latanoprost (XA (more content not included)... CNOV on 09-18-2020 CNOV Office Visit (PHMEWO) [facility] FRANCISCO THOMAS ([id number]) 1940 M [facility] Time Provider Department 09/18/20 2:00 PM DIONE CHANG During your visit today, we recorded the following inf ormation about you: Pulse Blood pressure 71/minute 142/68 Dione Chang [facility] 09/18/2020 2:38 PM Signed Patient consents to pharmacy [facility]. REASON FOR CONSULT: DM?and BP [...] out of pocket; doesn't happen often Pharmacy: [facility] mail order Rx coverage: Medicare Affordability: insulin [...] blood pressure arminda ly. blood sugar diagnostic (AirMediaTOUCH ULTRA TEST) test stri p Use to check blood sugar three times daily. hydroCHLOROthiazide (HYDRODIURIL, ESIDRI X) 25 mg tablet Take 1 tablet by mouth once daily. insulin glargine (BASAGLAR KWIKPEN U-100 INSULIN) 100 unit/mL (3 mL) Inject 30 Units subcutaneously every morning. Insulin [place], Disposable, (BD ULTRA-FINE SHEBA PEN NEEDLE) 32 gauge x 5/32 Use to inject insulin and Victoza, 2 injections per da y. Lancets (Heuresis CorporationUCH ULTRASOFT LANCETS) lancets Test blood sugar four [...] (PHMEWO) [facility] FRANCISCO THOMAS ([id number]) 1940 [place] Date Time Provider Department 08/27/20 11:30 AM CURLY DENNISON During your visit today, we recorded the following inf ormation about you: Pulse Blood pressure 66/minute 165/79 Curly Dennison [facility] 09/11/2020 2:04 PM Signed Patient consents to pharmacy collaborative practice [facility]. REASON FOR CONSULT: DM?and BP GOALS: A1c [...] ASA:?No ? MEDICATIONS:?- ? Adherence:?denies?missed doses. ? Pharmacy:?[facility] order? Rx coverage:?Medicare ? Affordability:?insulin/victoza more [...] check blood pressure d aily. - Insulin [place], Disposabl e, (BD ULTRA-FINE SHEBA PEN NEEDLE) [...] (more content not included)... CNNURSE on 08-25-2020 [facility] Nurse Visit (FAMPWS) Jesse Arizmendi nd FRANCISCO Grace ([id number]) 1940 [facility] Date Time Provider Department 08/25/20 11:15 AM MD NURSE FAMPWS During your visit today, we [...] pulse was same Referring Provider: EMELYN GIRALDO [[id number]] Allergies As of Date: 08/25/2020 Noted Allergy [...] 08/25/20 OLEN on 08-25-2020 OLEN Telephone (CHINEDU) [facility] FRANCISCO THOMAS ([id number]) 1940 [facility] Date Time Provider Department 08/25/20 EMELYN GIRALDO [...] consider increase in meds. MD Curly Laird, [facility] 08/27/2020 12:13 PM Signed Patient seen in [...] Dennison, PharmD, BCACP Primary Care Clinical Pharmacist [facility] Emelyn Giraldo MD 08/27/2020 1:12 PM Signed [...] 06-24-2020 Albumin Urine Random 133.3 mg/L Normal [facility] Comment on above: Performed By: #### LIPB, CMP , UACR, HBA1C ####[facility], [place] [phone] Albumin/Creat Ratio 65 mg/g High <30 [facility] Comment on above: Result Comment: Adult [...] By: #### LIPB, CMP , UACR, HBA1C ####[facility] [address] [place], [place] [phone] Creatinine,Urine,Ran 205.5 mg/dL Normal 20-300 [facility] Comment on above: Performed By: #### LIPB, CMP , UACR, HBA1C ####[facility] [address] [place], [place] [phone] CNOV on 06-24-2020 CNOV Office Visit (FPWADS) [facility] FRANCISCO THOMAS ([id number]) 1940 [place] Date Time Provider Department 06/24/20 2:00 PM [...] disease, with long-term current use of insulin ([facility]) (primary encounter diagnosis) (E11.29, E11.65, R80.9, Z79.4) 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 Due [...] 06-24-2020 Albumin [Mass/Vol] 4.3 g/dL Normal 3.9-4.9 [facility] Comment on above: Performed By: #### LIPB, CMP , UACR, HBA1C ####[facility] [address] [place], [place] [phone] ALP [Catalytic activity/Vol] 55 U/L Normal 38-113 [facility] Comment on above: Performed By: #### LIPB, CMP , UACR, HBA1C ####[facility] [address] [place], [place] [phone] ALT [Catalytic activity/Vol] 16 U/L Normal 10-54 [facility] Comment on above: Performed By: #### LIPB, CMP , UACR, HBA1C ####[facility] [address] [place], [place] [phone] Anion gap [Moles/Vol] 12 mmol/L Normal 9-18 [facility] Comment on above: Performed By: #### LIPB, CMP , UACR, HBA1C ####[facility] [place] [phone] AST [Catalytic activity/Vol] 18 U/L Normal 14-40 [facility] Comment on above: Performed By: #### LIPB, CMP , UACR, HBA1C ####[facility] [place] [phone] Bilirubin [Mass/Vol] 0.3 mg/dL Normal 0.2-1.3 [facility] Comment on above: Performed By: #### LIPB, CMP , UACR, HBA1C ####[place] [address] [place] [phone] Calcium [Mass/Vol] 9.5 mg/dL Normal 8.5-10.2 [facility] Comment on above: Performed By: #### LIPB, CMP , UACR, HBA1C ####[place] [address] [place] [phone] Chloride [Moles/Vol] 100 mmol/L Normal 97-105 [facility] Comment on above: Performed By: #### LIPB, CMP , UACR, HBA1C ####[facility] [place] [phone] CO2 [Moles/Vol] 31 mmol/L High 22-30 [facility] Comment on above: Performed By: #### LIPB, CMP , UACR, HBA1C ####[facility] [place] [phone] Creatinine [Mass/Vol] 1.09 mg/dL Normal 0.73-1.22 [facility] Comment on above: Performed By: #### LIPB, CMP , UACR, HBA1C ####[facility] [place] [phone] eGFR- Amer. >60 Normal [facility] Comment on above: Performed By: #### LIPB, CMP , UACR, HBA1C ####[facility] [address] [place], [place] [phone] eGFR-All Other Races >60 Normal [facility] Comment on above: Result Comment: eGFR [...] By: #### LIPB, CMP , UACR, HBA1C ####[facility] [address] MedypalBel [place], [place] [phone] Glucose [Mass/Vol] 135 mg/dL High 74-99 [facility] Comment on above: Result Comment: The [place] Diabetes Association (ADA) provides guidance for cutoff [...] for diagnosis of diabetes. Reference: Standards of [facility] Care in Diabetes 2016, [place] Diabetes Association. Diabetes Care. 2016.39(Suppl 1). Performed By: #### LIPB, CMP , UACR, HBA1C ####[facility] [address] [place], [place] [phone] Potassium [Moles/Vol] 4.7 mmol/L Normal 3.7-5.1 [facility] Comment on above: Performed By: #### LIPB, CMP , UACR, HBA1C ####[facility] [place], [place] [phone] Protein [Mass/Vol] 6.6 g/dL Normal 6.3-8.0 [facility] Comment on above: Performed By: #### LIPB, CMP , UACR, HBA1C ####[place] [address] [place] [phone] Sodium [Moles/Vol] 143 mmol/L Normal 136-144 [facility] Comment on above: Performed By: #### LIPB, CMP , UACR, HBA1C ####[place] [address] [place], [place] [phone] Urea nitrogen [Mass/Vol] 22 mg/dL Normal 9-24 [facility] Comment on above: Performed By: #### LIPB, CMP , UACR, HBA1C ####[facility] [place], [place] [phone] Hemoglobin A1c on 06-24-2020 Glucose [Mass/Vol] 146 mg/dL Normal [facility] Comment on above: Result Comment: eAG: (Estima pilo average glucose) is a calculated value from HgbA1c and is rep resentative of the average blood glucose level in the last 2- 3 month period. Performed By: #### LIPB, CMP , UACR, HBA1C ####[place] [address] [place], [place] [phone] HbA1c (Bld) [Mass fraction] 6.7 % High 4.3-5.6 [facility] Comment on above: Result Comment: Citizen [place] Jolynn betes Association guidelines indicate that patients with HgbA1c in the range 5.7-6.4% are at increased risk for development of diab etes, and intervention by lifestyle modification may be benefici al. HgbA1c greater or equal to 6.5% is considered diagnostic of jolynn betes. Performed By: #### LIPB, CMP , UACR, HBA1C ####[facility] [address] [place], [place] [phone] Lipid Panel, Basic on 06-24-2020 Cholesterol [Mass/Vol] 205 mg/dL High <200 [place] Comment on above: Result Comment: <200 mg/dL, Desirable 200-239 mg/dL, Borderline hi gh >239 mg/dL, High Performed By: #### LIPB, CMP , UACR, HBA1C ####[facility] [place], [place] [phone] Cholesterol in HDL [Mass/Vol] 38 mg/dL Low >39 [facility] Comment on above: Result Comment: 40-59 mg/dL, Acceptable >59 mg/dL, High: Negative ri sk factor for coronary heart disease <40 mg/dL, Low: Positive ris k factor for coronary heart disease Performed By: #### LIPB, CMP , UACR, HBA1C ####[facility] [place], [place] [phone] Cholesterol in LDL [Mass/Vol] 132 mg/dL High <100 [facility] Comment on above: Result Comment: <100 mg/dL, Optimal 100-129 mg/dL, Near optimal/ above optimal 130-159 mg/dL, Borderline hi gh 160-189 mg/dL, High >189 mg/dL, Very high Secondary prevention optimal LDL Cholesterol levels are recommended to be < 70 mg/dL Performed By: #### LIPB, CMP , UACR, HBA1C ####[facility] [place], [place] [phone] Fasting Time Unknown Normal [facility] Comment on above: Performed By: #### LIPB, CMP , UACR, HBA1C ####[facility] [place], [place] [phone] LDL:HDL Ratio 3.47 High <2.54 [facility] Comment on above: Result Comment: Reference: 1. National Cholesterol Educ ation Program ATP III Guideline At-A-Glance Quick Desk Reference: National Heart, Lung, and Blood Prospect. National Institutes of Health. 2001: NIH Publication No. 01-3305. 2. An International Atherosc lerosis Society position paper: global recommendations for the management of dyslipidemia: executive summary, Atherosclerosis. 2014: 232(2):410-413. Performed By: #### LIPB, CMP , UACR, HBA1C ####[facility] [place], [place] [phone] Non HDL Cholesterol 167 mg/dL High <130 [facility] Comment on above: Result Comment: <130 mg/dL, Optimal 130-159 mg/dL, Near optimal/ above optimal 160-189 mg/dL, Borderline hi gh 190-219 mg/dL, High >219 mg/dL, Very high Secondary prevention optimal non HDL Cholesterol levels are recommended to be < 100 mg/dL Performed By: #### LIPB, CMP , UACR, HBA1C ####[facility] [place], [place] [phone] TC:HDL Ratio 5.39 High <5.10 [facility] Comment on above: Performed By: #### LIPB, CMP , UACR, HBA1C ####[place] [address] [place] [phone] Triglyceride [Mass/Vol] 177 mg/dL High <150 [facility] Comment on above: Result Comment: <150 mg/dL, Normal 150-199 mg/dL, Borderline hi gh 200-499 mg/dL, High >499 mg/dL, Very high Performed By: #### LIPB, CMP , UACR, HBA1C ####[facility] [place], [place] [phone] VLDL Cholesterol 35 mg/dL High <[address] [facility] Comment on above: Performed By: #### LIPB, CMP , UACR, HBA1C ####[facility] [place], [place] [phone] OBSOLETE on 05-29-2020 OBSOLETE Refill (PHMEWO) [facility] FRANCISCO THOMAS ([id number]) 1940 [place] Date Time Provider Department 05/29/20 EMELYN GIRALDO [...] once daily. RAI: No Authorizing Provider: EMELYN GIRALDO MD Denise Swanson [facility] 06/03/2020 12:27 PM Signed Patient is scheduled [...] KNEE 1 OR 2 VIEWS ORIGINAL [facility] RIGHT XR KNEE 1 OR 2 [...] (P) [Mass/Vol] 1.10 10 3/mcL High 0.15-1.00 [facility] ([place]) Comment on above: Performed By: #### CBC, ADIF F, ANEU #### [place] [address] #### BMP, GFR #### [address] [address] Basophils (Bld) [#/Vol] 0.00 10 3/mcL Normal 0.00-0.19 [facility] ([place]) Comment on above: Performed By: #### CBC, ADIF F, ANEU #### [place] [address] #### BMP, GFR #### [address] [address] Basophils/100 WBC (Bld) 0.4 % Normal 0.0-2.5 [facility] ([place]) Comment on above: Performed By: #### CBC, ADIF F, ANEU #### [place] [address] #### BMP, GFR #### [address] [address] Eosinophils (Bld) [#/Vol] 0.10 10 3/mcL Normal 0.00-0.40 [facility] ([place]) Comment on above: Performed By: #### CBC, ADIF F, ANEU #### [place] [address] #### BMP, GFR #### [address] [address] Eosinophils/100 WBC (Bld) 0.6 % Normal 0.0-7.0 [facility] ([place]) Comment on above: Performed By: #### CBC, ADIF F, ANEU #### [address] [address] #### BMP, GFR #### [address] [address] Lymphocytes (Bld) [#/Vol] 1.70 10 3/mcL Normal 0.77-3.85 [facility] ([place]) Comment on above: Performed By: #### CBC, ADIF F, ANEU #### [address] [address] #### BMP, GFR #### [address] [address] Lymphocytes/100 WBC (Bld) 15.8 % Normal 10.0-50.0 [facility] ([place]) Comment on above: Performed By: #### CBC, ADIF F, ANEU #### [address] [address] #### BMP, GFR #### [address] [address] Monocytes/100 WBC (Bld) 10.6 % Normal 1.7-13.0 [facility] ([place]) Comment on above: Performed By: #### CBC, ADIF F, ANEU #### [address] [address] #### BMP, GFR #### [address] [address] Neutrophils/100 WBC (Bld) 72.6 % Normal 37.0-80.0 [facility] ([place]) Comment on above: Performed By: #### CBC, ADIF F, ANEU #### [address] [address] #### BMP, GFR #### [address] [address] .GFR on 03-07-2019 GFR 74 ml/min/1.73sqm Normal [facility] ([place]) Comment on above: Result Comment: GFR Population mean for Afri can Citizen Of [place], Non- Americans Ages 20-29 = 116 mL/min/1.73 [...] #### CBC, ADIF F, ANEU #### [facility] [address] [address] GFR Non- 61 ml/min/1.73sqm [facility] ([place]) Comment on above: Result Comment: GFR Population mean for Afri can Citizen Of [place], Non- Americans Ages 20-29 = 116 mL/min/1.73 [...] #### CBC, ADIF F, ANEU #### [place] [address] [address] .NEUABS on 03-07-2019 Neutrophils (Bld) [#/Vol] 7.70 10 3/mcL High 2.85-6.16 [facility] ([place]) Comment on above: Performed By: #### CBC, ADIF F, ANEU #### [place] [address] [address] [address] #### BMP, GFR #### [address] [address] BMP on 03-07-2019 Calcium [Mass/Vol] 8.8 mg/dL Normal 8.4-10.2 [facility] ([place]) Comment on above: Performed By: #### CBC, ADIF F, ANEU #### [place] [address] #### BMP, GFR #### [address] [address] Chloride [Moles/Vol] 102 mmol/L Normal 98-107 [facility] ([place]) Comment on above: Performed By: #### CBC, ADIF F, ANEU #### [place] [address] #### BMP, GFR #### [address] [address] CO2 [Moles/Vol] 33 mmol/L High 23-31 [facility] ([place]) Comment on above: Performed By: #### CBC, ADIF F, ANEU #### [place] [address] #### BMP, GFR #### [place] [id number] Creatinine [Mass/Vol] 1.15 mg/dL Normal 0.70-1.30 [facility] ([place]) Comment on above: Performed By: #### CBC, ADIF F, ANEU #### [place] [address] #### BMP, GFR #### [address] [address] Electrolyte Balance 6.0 mEq/L Normal [facility] ([place]) Comment on above: Performed By: #### CBC, ADIF F, ANEU #### [place] [id number] #### BMP, GFR #### [place] [id number] Glucose [Mass/Vol] 120 mg/dL High 83-110 [facility] ([place]) Comment on above: Performed By: #### CBC, ADIF F, ANEU #### [address] [address] #### BMP, GFR #### [address] [address] Potassium [Moles/Vol] 4.0 mmol/L Normal 3.5-5.1 [facility] ([place]) Comment on above: Performed By: #### CBC, ADIF F, ANEU #### [address] [address] #### BMP, GFR #### [address] [address] Sodium [Moles/Vol] 141 mmol/L Normal 136-145 [facility] ([place]) Comment on above: Performed By: #### CBC, ADIF F, ANEU #### [address] [address] #### BMP, GFR #### [address] [address] Urea nitrogen [Mass/Vol] 24 mg/dL High 7-18 [facility] ([place]) Comment on above: Performed By: #### CBC, ADIF F, ANEU #### [address] [address] #### BMP, GFR #### [address] [address] Urea nitrogen/Creatinine [Mass ratio] 21 ratio Normal 7-2 7 [facility] ([place]) Comment on above: Performed By: #### CBC, ADIF F, ANEU #### [address] [address] #### BMP, GFR #### [address] [address] CBC on 03-07-2019 Erythrocyte distribution width 14.4 % Normal 11.5-14.5 [facility] ([facility]) [Ratio] ([place]) Comment on above: Performed By: #### CBC, ADIF F, ANEU #### [place] [address] #### BMP, GFR #### [address] [address] Hematocrit (Bld) [Volume 37.4 % Low 42.0-52.0 [facility] ([place]) fraction] Comment on above: Performed By: #### CBC, ADIF F, ANEU #### [place] [address] #### BMP, GFR #### [place] [address] Hemoglobin (Bld) [Mass/Vol] 12.4 G/dL Low 14.0-18.0 [facility] ([place] Comment on above: Performed By: #### CBC, ADIF F, ANEU #### [place] [address] #### BMP, GFR #### [place] [address] MCH (RBC) [Entitic mass] 30.0 pg Normal 27.0-31.2 [facility] ([place]) Comment on above: Performed By: #### CBC, ADIF F, ANEU #### [place] [address] #### BMP, GFR #### [address] [address] MCHC (RBC) [Mass/Vol] 33.2 G/dL Normal 31.8-35.4 [facility] ([place]) Comment on above: Performed By: #### CBC, ADIF F, ANEU #### [place] [address] #### BMP, GFR #### [place] [address] MCV (RBC) [Entitic vol] 90.4 fL Normal 80.0-94.0 [facility] ([place]) Comment on above: Performed By: #### CBC, ADIF F, ANEU #### [place] [address] #### BMP, GFR #### [place] [address] Platelet mean volume (Bld) 9.0 fL Normal 7.4-10.4 [facility] [place] [Entitic vol] Comment on above: Performed By: #### CBC, ADIF F, ANEU #### [place] [address] #### BMP, GFR #### [place] [address] Platelets (Bld) [#/Vol] 205 10 3/mcL Normal 130-400 [facility] ([place]) Comment on above: Performed By: #### CBC, ADIF F, ANEU #### [place] [address] #### BMP, GFR #### [place] [address] RBC (Bld) [#/Vol] 4.14 10 6/mcL Normal 4.04-6.13 [facility] ([place] Comment on above: Performed By: #### CBC, ADIF F, ANEU #### [place] [address] #### BMP, GFR #### [place] [address] WBC (Bld) [#/Vol] 10.60 10 3/mcL Normal 4.60-10.80 [facility] ([place] Comment on above: Performed By: #### CBC, ADIF F, ANEU #### [place] [address] #### BMP, GFR #### [place] [address] .Auto Diff on 02-19-2019 Ammonia (P) [Mass/Vol] 0.80 10 3/mcL Normal 0.15-1.00 [facility] ([place]) Comment on above: Performed By: #### CBC, ADIF F, ANEU #### [place] [id number] Basophils (Bld) [#/Vol] 0.10 10 3/mcL Normal 0.00-0.19 [facility] ([place]) Comment on above: Performed By: #### CBC, ADIF F, ANEU #### [address] [address] Basophils/100 WBC (Bld) 0.7 % Normal 0.0-2.5 [facility] ([place]) Comment on above: Performed By: #### CBC, ADIF F, ANEU #### [address] [address] Eosinophils (Bld) [#/Vol] 0.10 10 3/mcL Normal 0.00-0.40 [facility] [place] Comment on above: Performed By: #### CBC, ADIF F, ANEU #### [address] [address] Eosinophils/100 WBC (Bld) 1.0 % Normal 0.0-7.0 [facility] ([place]) Comment on above: Performed By: #### CBC, ADIF F, ANEU #### [address] [address] Lymphocytes (Bld) [#/Vol] 1.80 10 3/mcL Normal 0.77-3.85 [facility] [place] Comment on above: Performed By: #### CBC, ADIF F, ANEU #### [address] [address] Lymphocytes/100 WBC (Bld) 19.7 % Normal 10.0-50.0 [facility] ([place]) Comment on above: Performed By: #### CBC, ADIF F, ANEU #### [address] [address] Monocytes/100 WBC (Bld) 8.4 % Normal 1.7-13.0 [facility] ([place]) Comment on above: Performed By: #### CBC, ADIF F, ANEU #### [address] [address] Neutrophils/100 WBC (Bld) 70.2 % Normal 37.0-80.0 [facility] ([place]) Comment on above: Performed By: #### CBC, ADIF F, ANEU #### [place] [address] [address] .GFR on 02-19-2019 GFR 62 ml/min/1.73sqm Normal [facility] ([place]) Comment on above: Result Comment: GFR Population mean for Afri can Citizen Of [place], Non- Americans Ages 20-29 = 116 mL/min/1.73 [...] meters Performed By: #### BMP, GFR #### [place] [address] GFR Non- 51 ml/min/1.73sqm Normal [facility] ([place] Comment on above: Result Comment: GFR Population mean for Afri can Citizen Of [place], Non- Americans Ages 20-29 = 116 mL/min/1.73 [...] meters Performed By: #### BMP, GFR #### [address] [address] .NEUABS on 02-19-2019 Neutrophils (Bld) [#/Vol] 6.30 10 3/mcL High 2.85-6.16 [facility] [place] Comment on above: Performed By: #### CBC, ADIF F, ANEU #### [address] [address] BMP on 02-19-2019 Calcium [Mass/Vol] 9.3 mg/dL Normal 8.4-10.2 [facility] ([place]) Comment on above: Performed By: #### BMP, GFR #### [address] [address] Chloride [Moles/Vol] 101 mmol/L Normal 98-107 [facility] ([place] Comment on above: Performed By: #### BMP, GFR #### [address] [address] CO2 [Moles/Vol] 32 mmol/L High 23-31 [facility] ([place]) Comment on above: Performed By: #### BMP, GFR #### [address] [address] Creatinine [Mass/Vol] 1.34 mg/dL High 0.70-1.30 [facility] ([place]) Comment on above: Performed By: #### BMP, GFR #### [address] [address] Electrolyte Balance 9.0 mEq/L Normal [facility] ([place] Comment on above: Performed By: #### BMP, GFR #### [address] [address] Glucose [Mass/Vol] 187 mg/dL High 83-110 [facility] ([place]) Comment on above: Performed By: #### BMP, GFR #### [address] [address] Potassium [Moles/Vol] 4.3 mmol/L Normal 3.5-5.1 [facility] ([place]) Comment on above: Performed By: #### BMP, GFR #### [address] [address] Sodium [Moles/Vol] 142 mmol/L Normal 136-145 [facility] ([place]) Comment on above: Performed By: #### BMP, GFR #### [address] [address] Urea nitrogen [Mass/Vol] 30 mg/dL High 7-18 [facility] ([place]) Comment on above: Performed By: #### BMP, GFR #### [address] [address] Urea nitrogen/Creatinine [Mass ratio] 22 ratio Normal 7-2 7 [facility] ([place] Comment on above: Performed By: #### BMP, GFR #### [address] [address] CBC on 02-19-2019 Erythrocyte distribution width 14.7 % High 11.5-14.5 [facility] ([place] (RBC) [Ratio] Comment on above: Performed By: #### CBC, ADIF F, ANEU #### [address] [address] Hematocrit (Bld) [Volume 42.9 % Normal 42.0-52.0 [facility] ([place]) fraction] Comment on above: Performed By: #### CBC, ADIF F, ANEU #### [address] [address] Hemoglobin (Bld) [Mass/Vol] 14.2 G/dL Normal 14.0-18.0 [facility] ([place] Comment on above: Performed By: #### CBC, ADIF F, ANEU #### [address] [address] MCH (RBC) [Entitic mass] 30.2 pg Normal 27.0-31.2 [facility] ([place]) Comment on above: Performed By: #### CBC, ADIF F, ANEU #### [address] [address] MCHC (RBC) [Mass/Vol] 33.2 G/dL Normal 31.8-35.4 [facility] ([place]) Comment on above: Performed By: #### CBC, ADIF F, ANEU #### [address] [address] MCV (RBC) [Entitic vol] 91.1 fL Normal 80.0-94.0 [facility] ([place]) Comment on above: Performed By: #### CBC, ADIF F, ANEU #### [address] [address] Platelet mean volume (Bld) 9.3 fL Normal 7.4-10.4 [facility] [place] [Entitic vol] Comment on above: Performed By: #### CBC, ADIF F, ANEU #### [address] [address] Platelets (Bld) [#/Vol] 264 10 3/mcL Normal 130-400 [facility] ([place]) Comment on above: Performed By: #### CBC, ADIF F, ANEU #### [address] [address] RBC (Bld) [#/Vol] 4.71 10 6/mcL Normal 4.04-6.13 [facility] ([place]) Comment on above: Performed By: #### CBC, ADIF F, ANEU #### [address] [address] WBC (Bld) [#/Vol] 8.90 10 3/mcL Normal 4.60-10.80 [facility] ([place]) Comment on above: Performed By: #### CBC, ADIF F, ANEU #### [address] [address] [address] KNEE W/O CONTRAST RIGHT on 9 CT KNEE W/O CONTRAST ORIGINAL Normal [facility] RIGHT CT KNEE W/O CONTRAST RIGHT F [...] Type Note Facility 12-24-2020 Note HNO ID: [id number] [facility] Author: Curly Dennison RPh Service: ? [...] are not present. Adherence: denies missed doses Pharmacy:?[facility]? Rx coverage:?Medicare Affordability:?insulin and Victoza costl y Diabetes supplies:?One [employer] Organization System:?none ACTIVE PROBLEM LIST Chronic Pain [...] check bl ood pressure daily. - Insulin [place], Disposable, (BD ULTRA -FINE SHEBA PEN NEEDLE) [...] Type Note Facility 11-27-2020 Note HNO ID: [id number] [facility] mckay Author: Dione Chang [facility] Service: ? Author Type: Pharmacist Type: Progress Notes Filed: 11/27/2020 3:15 PM Note Text: Patient consents to pharmacy collaborati ve practice agreement. REASON FOR CONSULT: DM?and BP GOALS: A1c CONSULTING PROVIDER:??Miguel Giraldo Date of Consult:?01/30/19 Francisco Thomas is a 80 year old male [facility] for follow up visit in person. Patient consents to pharmacy col laborative practice agreement. . Patient was last seen by PCP, Dr. Lise Giraldo MD on 06/24/20. Patient is presenting today for f/up pha rmacotherapy management appointment for diabetes and HTN. At [facility] PCP appt, pt had self-stopped Victoza [...] are not present Adherence: denies missed doses Pharmacy:?[facility]? Rx coverage:?Medicare Affordability:?insulin and Victoza costl y Diabetes supplies:?[employer] [facility] System:?none Past medical, family and social history [...] bloo d pressure daily. blood sugar diagnostic ([employer] ULTRA T EST) test strip Use to check blood sugar three times daily. hydroCHLOROthiazide (HYDRODIURIL, ESIDRI X) 25 mg tablet Take 1 tablet by mouth once daily. insulin glargine (BASAGLAR KWIKPEN U-100 INSULIN) 100 unit/mL (3 mL) Inject 30 Units subcutaneously every mor chong. Insulin [place], Disposable, (BD ULTRA-F INE SHEBA PEN NEEDLE) [...] Type Note Facility 10-23-2020 Note HNO ID: [id number] [facility] Author: Dione Chang [facility] Service: ? Author Type: Pharmacist Type: Progress [...] night 2-3x/week. Patient has moved amlodipine to [facility] and is not missing any doses. Has [...] not present Adherence: denies missed doses Pharmacy: [facility] Rx coverage: Medicare Affordability: insulin [...] 30 Units subcutaneously every mor chong. Insulin [place], Disposable, (BD ULTRA-F INE SHEBA PEN NEEDLE) 32 gauge x Use to inject insulin and Victoza, 2 injections per day. Lancets (AirMediaTOUCH ULTRASOFT LANCETS) toni cets Test blood sugar [...] Type Note Facility 09-18-2020 Note HNO ID: [id number] [facility] Author: Dione Chang [facility] Service: ? Author Type: Pharmacist Type: Progress [...] pharmacy in the past and here to re-[facility] for DM and BP management. At last [...] out of pocket; doesn't happen often Pharmacy: [facility] order Rx coverage: Medicare Affordability: insulin and Victoza costl y Diabetes supplies: One [employer] Organization System: none ACTIVE PROBLEM LIST Chronic [...] bloo d pressure daily. blood sugar diagnostic ([employer] Corporation[employer]CH ULTRA T EST) test strip Use to check blood sugar three times daily. hydroCHLOROthiazide (HYDRODIURIL, ESIDRI X) 25 mg tablet Take 1 tablet by mouth once daily. insulin glargine (BASAGLAR KWIKPEN U-100 INSULIN) 100 unit/mL (3 mL) Inject 30 Units subcutaneously every mor chong. Insulin [place], Disposable, (BD ULTRA-F INE SHEBA PEN NEEDLE) 32 gauge x /32 Use to inject insulin and Victoza, 2 injections per day. Lancets (AirMediaTOUCH ULTRASOFT LANCETS) toni cets Test blood sugar [...] Type Note Facility 08-27-2020 Note HNO ID: [id number] [facility] Author: Curly Dennison [facility] Service: ? Author Type: Pharmacist Type: Progress Notes Filed: 09/11/2020 2:04 PM Note Text: Patient consents to pharmacy collaborati ve practice agreement. REASON FOR CONSULT: DM?and BP GOALS: A1c CONSULTING PROVIDER:??Miguel Giraldo Date of Consult:?01/30/19 Francisco Thomas is a 80 year old male was l ast seen by PCP, Dr. Emelyn Giraldo MD on 06/24/2020. Subjective: Patient is presenting today for [facility] pharmacotherapy management appointment for diabetes. At last [...] On ASA:?No ? MEDICATIONS:? Adherence:?denies?missed doses. ? Pharmacy:?[facility] order? Rx coverage:?Medicare ? Affordability:?insulin/victoza more [...] check bl ood pressure daily. - Insulin [place], Disposable, (BD ULTRA -FINE SHEBA PEN NEEDLE) 32 gauge x /32 Use to inject insulin and Victoza, 2 injections per day. - potassium chloride ER (KLOR-CON M20) 2 0 mEq tablet Take 1 tablet by mouth twice daily. - traMADol (ULTRAM) 50 mg tablet Take 50 -100 mg by mouth every 6 hours as needed. - blood sugar diagnostic (AirMediaTOUCH ULTRA TEST) test strip Use to check blood sugar three times daily. - Lancets (AirMediaTOUCH ULTRASOFT LANCETS) l ancets Test blood sugar [...] Type Note Facility 08-25-2020 Note HNO ID: [id number] [facility] mckay Author: Ivett Laboy LPN Service: ? [...] Type Note Facility 06-24-2020 Note HNO ID: [id number] [facility] Author: Emelyn Giraldo Service: ? Author [...] Take 1 tablet by mouth once daily. ARI: No metFORMIN ER (GLUCOPHAGE XR) 500 mg [...] Type Note Facility 06-08-2020 Note HNO ID: [id number] [facility] Author: Jackie Banks Service: ? Author Type: Computer Engineering Professor Type: Progress Notes Filed: 06/08/2020 1:01 PM Note Text: POPULATION HEALTH NAVIGATION OUTREACH Action/FYI Patient is due for dilated retinal exam. Patient had ALLYSSA with Dr. [place] in [place] on 02[place]05[place]. Will have results sent Contact made with patient or family memb er? YES Pt identified by name and : YES Outreach Outcome/Action Spoke to patient or caregiver: Patient s cheduled Reason for Outreach Care Gap or Scheduling/Wellness visits Payer: Payor: T MEDIC[facility] Product Type: PPO / Care [...] healthc are decisions with a power of admitted attorneys, living will, or advance direct rosalinda? No. Please bring a copy to your next appointment or email to [email or web address] Referrals: N/A Message Sent to Practice: NO Navigation Signature: Jackie Banks Population Health Shannan r June 08, 2020 1:00 PM Clinical Note 06-08-2020 Note Date & Type Note Facility 06-08-2020 Note Patient Outreach (KETTY) [facility] FRANCISCO THOMAS ([id number]) 1940 M Date Time Provider Department 06/08/20 JACKIE BANKS During your visit today, we recorded the following information about you: Jackie Banks Population Health Alineato r 06/08/2020 1:01 PM Signed POPULATION HEALTH NAVIGATION OUTREACH Action/ Patient is due for dilated retinal exam. Patient had ALLYSSA with Dr. Suzi bettencourt in [place] on 02/05/2020. Will have results sent Contact made with patient or family memb er? YES Pt identified by name and : YES Outreach Outcome/Action Spoke to patient or caregiver: Patient s cheduled Reason for Outreach Care Gap or Scheduling/Wellness visits Payer: Payor: JULIANGustavoMARCELINO MEDICARE / Plan: [facility] PPO / Product Type: PPO / [...] Directives Completed: Have you ever planned for [facility] healthcare decisions with a power of admitted attorneys, living will, or advance directives? No. Please [...] - Fully Assessed Reason for Visit: Population [facility] Navigation Outreach [3 910] Cmt: Deferred [...] Note Facility 04-15-2020 Note Patient Outreach (COOCC3) [facility] FRANCISCO THOMAS ([id number]) 1940 M Date Time Provider Department 04/15/20 [...] Fully Assessed Order(s):SARS-COVID VACCINE 1ST DOSE APPT [[id number]] Order #: [id number] FUTURE Prescriptions as of 04/15/2020 Sig: LOSARTAN [...] 2, uncontro lled, w*02/19/2015 Encounter Status:Closed by [employer]VID R on 04/18/20 Summary Purpose Family History No Family History Records FoundNo Family History Records Found Advance Directives No Advanced Directives Records FoundNo Advanced Directives Records Found Additional Source Comments (unrecognized section and cont ent) No Status Records FoundNo Preg maik Status Records Found INFORMATION SOURCE (unrecognized section and content) DATE CREATED AUTHOR AUTHOR'S ORGANIZ ATION 03/08/2019 [facility] Found ation ([place]) DATE CREATED AUTHOR AUTHOR'S ORGANIZATIO N 04/05/2021 [facility] FOR RECORDS PERTAINING TO PATIENTS WHO [...] BE BASED ON THE PRIMARY CLINICAL RECORDS. [facility] [employer] provides no warranty or guarantee of the accuracy or completeness of information in this document.
[2022-02-24 15:33] LABS: Anion Gap 6 (5-15); BUN 60 mg/dL (7-18); BUN/Creat Ratio 30.6 RATIO (10-20); Calcium,Total 8.7 mg/dL (8.5-10.1); Chloride 107 mmol/L (98-107); Creatinine, Serum 1.96 mg/dL (0.70-1.30); EST Glomerular Filtration Rate 35 mL/min (>60); Est Glom Filt Rate - Afr Amer 42 mL/min (>60); Estimated Creatinine Clearance 28.11 ml/min; Glucose 227 mg/dL (74-106); Potassium 4.6 mmol/L (3.5-5.1); Sodium Level 138 mmol/L (136-145)
[2022-02-24 15:54] LABS: Bacteria 0 SEEN /hpf (None Seen); Mucous, Urine 0 SEEN /hpf (<or=2+); Red Blood Cells-Urine 0 SEEN /hpf (0-5)
--- NOTE | 2022-02-24 16:08 | PCM.HP.STD ---
[facility] - General General Date of Admission: 02/24/22 Date of Service: 02/24/22 Chief Complaint: Fall, left-sided rib pain after fall. Generalized weakness. [facility] Narrative SHAISTA CLOUD, is a 81 M with multiple comorbidities was brought by squad for generalized weakness. Patient had fall last night on the left side hit his chest and head. He has history of stroke with left-sided weakness, left upper extremity more weaker than left leg and usually he ambulates on walker with assistance from from his and daughter. Yesterday, he had fall and was unable to sit up and therefore required assistance. In the morning today he was still weak unable to ambulate, even not able to pull he spent. He denies any focal one-sided strokelike weakness but more generalized. He also states short of breath, chest tightness and difficulty in breathing. He was admitted and discharged last week for aspiration pneumonia and MBS was done which showed oropharyngeal dysphagia. Patient denies nausea vomiting headache or diarrhea. No GI bleed. Patient was discharged home on 2 L of oxygen as needed. Patient also had NABILA on CKD stage III during previous visit. Chest x-ray image reviewed shows worsening of upper lobe infiltrates. CT head did not show acute change. Labs reviewed and discussed in assessment and plan. [facility] Medical History Absent pedal pulses Acute left-sided muscle weakness Depression Dysphagia Essential hypertension Facial droop due to acute stroke History of CVA (cerebrovascular accident) (12/2020) Hydrocele in adult Hyperlipidemia Normocytic normochromic anemia Osteoarthritis Peripheral vascular occlusive disease Proteinuria due to type 2 diabetes mellitus Recurrent inguinal hernia of right side without obstruction or gangrene Restless legs Right pontine CVA Right renal artery stenosis Skin lesion of face Type 2 diabetes mellitus Home Medications multivitamin,[id number] (Complete Multivitamin tablet) 1 tab PO QDAY supplement 03/03/17 [History Last Taken 02/23/22] aspirin 81 mg chewable tablet 81 mg PO BREAKFAST heart health 01/02/21 [History Last Taken 02/24/22] Handicap Placard #1 ea 02/12/21 [Rx Last Taken Unknown] pen needle, diabetic 32 gauge x (BD Sanaz 2nd Gen Pen Needle) #50 ea 06/02/21 [Rx Last Taken Unknown] insulin glargine 100 unit/mL (3 mL) subcutaneous pen (Gabriela Ortega U-100 Insulin) 16 unit subcut DAILY Diabetes 02/16/22 [History Last Taken 02/24/22] metformin 500 mg tablet 500 mg PO DAILY DIABETES 02/16/22 [History Last Taken 02/24/22] amlodipine 10 mg tablet 10 mg PO DAILY Check with primary doctor 02/18/22 [History Last Taken 02/24/22] Arthritis Pain Compound 0 click topical BID joint pain 02/24/22 [History Last Taken 02/23/22] carvedilol 25 mg tablet 25 mg PO BID heart 02/24/22 [History Last Taken 02/24/22] clopidogrel 75 mg tablet (Plavix) 75 mg PO DAILY blood thinner 02/24/22 [History Last Taken 02/23/22] doxazosin 8 mg tablet 8 mg PO QHS bph 02/24/22 [History Last Taken 02/23/22] ezetimibe 10 mg tablet (Zetia) 10 mg PO DAILY cholesterol 02/24/22 [History Last Taken 02/23/22] ferrous sulfate 325 mg (65 mg iron) capsule,extended release 65 mg PO DAILY supplement 02/24/22 [History Last Taken 02/23/22] gabapentin 100 mg capsule 100 mg PO BID pain 02/24/22 [History Last Taken 02/24/22] gabapentin 300 mg capsule 300 mg PO 2100 pain 02/24/22 [History Last Taken 02/23/22] hydralazine 50 mg tablet 100 mg PO TID bp 02/24/22 [History Last Taken 02/24/22] latanoprost 0.005 % eye drops 1 drp EACH EYE HS eyes 02/24/22 [History Last Taken 02/23/22] levofloxacin 750 mg tablet 750 mg PO Q48H Check with primary doctor 02/24/22 [History Last Taken 02/24/22] losartan 100 mg tablet 100 mg PO DAILY bp 02/24/22 [History Last Taken 02/24/22] metformin 1,000 mg tablet 1,000 mg PO QHS dm 02/24/22 [History Last Taken 02/23/22] pramipexole 0.125 mg tablet 0.125 mg PO QHS parkinsons 02/24/22 [History Last Taken 02/23/22] sertraline 50 mg tablet 50 mg PO DAILY mood 02/24/22 [History Last Taken 02/24/22] Allergy/AdvReac Type Severity Reaction Status Date / Time meloxicam [From Mobic] Allergy Intermediate itching Verified 02/24/22 13:22 pravastatin [From Pravachol] AdvReac Mild myalgia Verified 02/24/22 13:22 cholestyramine AdvReac hypoglycemi Verified 02/24/22 13:22 a Family History Mother Hypertension Cancer Father Heart disease Diabetes Surgical History History of cataract surgery History of herniorrhaphy History of lumbar laminectomy History of stent insertion of renal artery (08/05/21) Status post laser cataract surgery of left eye Social History household members: spouse and other details: Abigail is his 's name housing: house number of children: 2 current occupational status: retired and other details: worked for [employer] prior to retiring leisure activities: other Smoking Status: Never smoker Electronic Cigarette Use: not used alcohol intake: former substance use type: does not use what type of physical activity do you participate in: walking frequency: 1-2 times per week ROS ROS Narrative 14 system ROS obtained from patient, daughter and near the bedside. Constitutional: Reports fatigue and generalized weakness. Not able to ambulate even on walker and assistance, more than baseline HEENT: Reports systems reviewed and no addt'l complaints, except as documented Respiratory/Chest: Denies chest pain, but chest tightness and shortness of breath as described in HPI Gastrointestinal: Denies coffee ground emesis, hematemesis or vomiting Genitourinary: Denies burning urination or new urinary tract symptoms Musculoskeletal: Fall with left-sided rib pain. Neurologic: Denies seizure-like activity skin: Bruise over left-sided chest wall and left baptism and head. No deep laceration or bleeding. Endocrinology: DM type II reports systems reviewed and no addt'l complaints, except as documented Hematologic/Lymphatic: Reports systems reviewed and no addt'l complaints, except as documented Rest 14 ROS are negative except as mentioned in HPI Vital Signs Vital Signs Vital Signs: 02/24/22 13:23 02/24/22 13:30 Temperature 97.9 F Temperature Source Temporal Pulse Rate 62 Respiratory Rate 18 Respiratory Effort Normal Non-Labored Respiratory Depth Normal Respiratory Pattern Normal Blood Pressure 125/50 H Blood Pressure Mean 75 Pulse Ox 97 Oxygen Delivery Method Room Air Room Air Weight Weight: 195 lb 6.4 oz Body Mass Index (BMI) 28.9 Physical Exam Narrative Physical exam General: Alert, Oriented x3, Cooperative, mild respiratory distress HEENT: Atraumatic, PERRLA, EOMI, Normocephalic Oral: No Gingival or Mucosal Lesions/ Ulcerations Neck: Supple, No JVD, Negative Carotid Bruits Chest wall/lungs: Mild left-sided 4/5 anterior lateral rib tenderness present. Air entry severely diminished in both lungs. Bilateral wheezing and crepitations present. Mild hypoxia. Cardiovascular: Sinus rhythm, Normal S1, Normal S2, No murmurs Abdomen: Bowel Sounds Present, Soft, Non Tender, Non-Distended : No renal angle tenderness. No suprapubic tenderness. Extremities: 2+ pitting bilateral edema, Capillary Refill Less than 3 Seconds Skin: Mild bruise over left side of baptism and chest wall. Musculoskeletal: No Tenderness to Palpation of Joints or Extremities ROM restricted over left upper and lower extremity. LUE 2/5, LLE 3+/5. Neurological: DTR 2+/4 and Symmetrical, left-sided weakness old stroke. Psych/Mental Status: Flat affect. Results Lab / Micro Data Result Diagrams: 02/24/22 15:00 02/24/22 15:00 Labs: Laboratory Results - last 24 hr 02/24/22 15:00: WBC 10.4, RBC 2.78 L, Hgb 8.7 L, Hct 25.7 L, MCV 92.4, MCH 31.3, MCHC 33.9, RDW Std Deviation 48.8 H, RDW Coeff of Cait 14.3, Plt Count 260, MPV 10.7, Immature Gran % (Auto) 0.800, Neut % (Auto) 73.9 H, Lymph % (Auto) 10.5 L, [place] % (Auto) 9.9, Eos % (Auto) 4.4, Baso % (Auto) 0.5, Absolute Neuts (auto) 7.7, Absolute Lymphs (auto) 1.09, Nucleated RBC % 0 02/24/22 15:00: Sodium 138, Potassium 4.6, Chloride 107, Carbon Dioxide 25.0, Anion Gap 6, BUN 60 H, Creatinine 1.96 H, Estim Creat Clear Calc 28.11, Est GFR (MDRD) Af Amer 42 L, Est GFR (MDRD) Non-Af 35 L, BUN/Creatinine Ratio 30.6 H, Glucose 227 H, Calcium 8.7 Rhythm Strip Rhythm Strip: Sinus Rhythm Rate: 60 Ectopy: None Radiology Impression Brain CT 02/24/22 14:43 IMPRESSION: Chronic involutional changes of the brain. Electronically Signed: Micah Murrieta MD at 15:34 EST , Chest X-Ray 02/24/22 15:16 IMPRESSION: Progressive infiltrates in both upper lobes more prominent on the left side. Left lower lobe infiltrate. Electronically Signed: Micah Murrieta MD at 15:30 EST , Assessment & Plan Assessment/Plan (1) Fall: (2) Generalized weakness: (3) Physical debility: (4) Aspiration into airway: PLAN: Plan This is 81-year-old gentleman admitted for fall, generalized weakness more than normal baseline, could not stand up after fall and respiratory distress with chest tightness. Patient was admitted a week ago for syncope, hypoxia and, hyperkalemia and NABILA on CKD stage IIIa. 1. Mild chest tightness and respiratory distress probably secondary to pulmonary edema/aspiration pneumonia: Patient is being admitted MedSurg floor. Chest x-ray image reviewed shows progressive inflamed both upper lobes worse than the previous week ago and left lower infiltrate. DuoNeb every 4 hourly first dose stat, Lasix 40 mg IV 1 dose and antibiotic started.Modified barium swallow on 02/18/2022 demonstrated mild oropharyngeal dysphagia. Diet recommendation regular texture with thin liquid with compensatory strategies, small bites small sips. speech therapy evaluation. Twelve-lead EKG shows normal sinus rhythm at 60 beats per. During previous admission patient was evaluated by cardiology for syncope and bradycardia. Outpatient ambulatory event monitor showed ventricular tachycardia but was normal during previous time at this time. 2. Fall with debility, inability to stand up or ambulate, worse than baseline: PT and OT ordered. 3. CKD stage G3b/4: It seems patient has worsening of kidney function for last 6 months. Current BUN/creatinine 60/1.96 and estimated creatinine clearance 28 mL/min. It might related to fluid shift.His creatinine was 1.23 in November 2021 but Kepone worsening for last 1 month. Was discharged on 1.72 and now 1.96 but did not meet criteria for ANBILA. Hold losartan. Lasix 1 dose for respiratory distress. Labs shows normal potassium magnesium and phosphorus. Monitor kidney function electrolytes. 4. Suspected aspiration pneumonia: As mentioned above. Started on Unasyn. 5. Hypertension: Currently blood pressure is normotensive. Continue home medication except losartan and titrate as per blood pressure. 5. History of a stroke with left-sided weakness and oropharyngeal dysphagia: It seems patient is more weaker but is generalized. Unclear whether worsening of a stroke therefore will do MRI brain tomorrow AM. 6. Diabetes mellitus type 2 complicated with diabetic neuropathy and possible diabetic nephropathy: Accu-Cheks and cover with [employer] sliding scale. 7. Multiple other comorbidities include dyslipidemia, chronic normocytic normochromic anemia, BPH, restless leg syndrome, glaucoma and anxiety and depression: Patient hemoglobin fluctuates between 9 to 10 g. Currently 8.7. Home medication reconciliation done. Living will/advanced directive/end of life care: Patient does have living will or advanced directive. During previous time patient was DNRCC arrest with no intubation. Patient power of workers compensation defense attorney for health his and then next next daughter. After discussion of benefits/risks procedures involved with full code, DNR CC arrest and DNR CC, the patient, and daughter preferred full code and wanted full resuscitation in the beginning if he can sustain. She does not want to to be visit table and ventilator for long time. Patient and his do want to try artificial life support including intubation, tube feed, ventilator and/chest compression, central venous catheter, vasopressor and DC shock if needed in the beginning Total time spent in [id number] encounter in discussion of advanced directive 16 minutes. Laboratory Results 02/24/22 15:00: WBC 10.4, RBC 2.78 L, Hgb 8.7 L, Hct 25.7 L, MCV 92.4, MCH 31.3, MCHC 33.9, RDW Std Deviation 48.8 H, RDW Coeff of Cait 14.3, Plt Count 260, MPV 10.7, Immature Gran % (Auto) 0.800, Neut % (Auto) 73.9 H, Lymph % (Auto) 10.5 L, [place] % (Auto) 9.9, Eos % (Auto) 4.4, Baso % (Auto) 0.5, Absolute Neuts (auto) 7.7, Absolute Lymphs (auto) 1.09, Nucleated RBC % 0 02/24/22 15:00: Sodium 138, Potassium 4.6, Chloride 107, Carbon Dioxide 25.0, Anion Gap 6, BUN 60 H, Creatinine 1.96 H, Estim Creat Clear Calc 28.11, Est GFR (MDRD) Af Amer 42 L, Est GFR (MDRD) Non-Af 35 L, BUN/Creatinine Ratio 30.6 H, Glucose 227 H, Calcium 8.7 02/24/22 15:00: Phosphorus 2.8, Magnesium 2.1 02/24/22 15:50: Urine Color Yellow, Urine Clarity Sl. Cloudy, Urine pH 6.0, Ur Specific [place] 1.015, Urine Protein 100 H, Urine Glucose (UA) Normal, Urine Ketones Negative, Urine Occult Blood Negative, Urine Nitrite Negative, Urine Bilirubin Negative, Urine Urobilinogen Normal, Ur Leukocyte Esterase Negative, Urine RBC 0 SEEN, Urine WBC 0-5 SEEN, Ur Squamous Epith Cells 0-5 SEEN, Urine Bacteria 0 SEEN, Urine Mucus 0 SEEN Charges/Coding Visit Charges Inpatient E&M: 73286 Init Hosp L3 Procedures Hospitalists Procedures: 26892 Advncd Care Plan 30 Min
[2022-02-24 16:15] LABS: Color, Urine Yellow (Yellow); Glucose, Dipstick Normal (Normal); Ketone-Dipstick Negative (Negative); Leukocyte Esterase-Dipstick Negative /ul (Negative); Nitrite-Dipstick Negative (Negative); Occult Blood-Urine Negative /ul (Negative); Protein-Dipstick 100 mg/dl (Negative); Specific Gravity, Urine 1.015 (1.002-1.030); Urine Bilirubin Dipstick Negative (Negative); Urine Clarity Sl. Cloudy (Clear); Urine Urobilinogen Normal (Normal)
[2022-02-24 16:28] LABS: Magnesium 2.1 mg/dL (1.6-2.6); Phosphorus 2.8 mg/dL (2.5-4.9)
--- OUTSIDE RECORDS SUMMARY | 2022-02-24 16:45 | XMS RPT_ITS | CCD ---
:1940 Author Organization [employer] Results Test Name Value Interpretation Reference Range Facility [facility] on 02-02-[address] [facility] Telephone (FPWADS) [facility] FRANCISCO THOMAS ([id number]) 1940 [facility] Date Time Provider Department 02/02/21 EMELYN GIRALDO During your visit today, we recorded the following inf ormation about you: Kelvin Conn 02/02/2021 10:02 AM Signed Received orders from [facility]. Placed in provider's inbox for review. Route to [place] Allergies As of Date: 02/02/2021 Noted Allergy Reactio n CHOLESTYRAMINE 03/30/2012 14 - Other: See Comments Comments: caused low blood sugar MOBIC (MELOXICAM) 05/21/2009 7 - Swelling 9 - Itching PRAVACHOL (PRAVASTATIN SODIUM) 12/22/2009 5 - Intolera nce Comments: Myalgias. Date Reviewed: 12/24/2020 Reviewed by: Curly Dennison [facility] - Fully Assessed Reason for Visit: Orders [[id number]] Cmt: [facility] Prescriptions as of 02/02/2021 - insulin glargine [...] to check blood pressure daily. - Insulin [place], Disposabl e, (BD ULTRA-FINE SHEBA PEN NEEDLE) 32 gauge x 5/32 Use to inject insulin and Victoza, 2 injections per da y. - potassium chloride ER (KLOR-CON M20) 20 mEq tablet Take 1 tablet by mouth twice daily. - traMADol (ULTRAM) 50 mg tablet Take 50-100 mg by mouth every 6 hours as needed. - blood sugar diagnostic (ePig GamesTOUCH ULTRA TEST) test st rip Use to check blood sugar three times daily. - Lancets (ePig GamesTOUCH ULTRASOFT LANCETS) lancets Test blood sugar four [...] by KELVIN CONN on ABRAHAM on 01-28-[facility] FRANCISCO Grace ([id number]) 1940 [facility] Date Time Provider Department 01/28/21 EMELYN GIRALDO During your visit today, we recorded the following inf ormation about you: Eleanor Ojeda Pss 01/28/2021 12:02 PM Signed Patient discharging from [facility] today and asking if Dr will follow for home Health orders starting tomorrow Nursing P T O T Speech Therapy Had a stroke w/left sided weakness Will need to know today if Dr will Follow Please call Caroline Brizuela APRN.LABORATORY ADMINISTRATIVE DIRECTOR 01/28/2021 3:59 PM S igned Please call [...] Fully Assessed Reason for Visit: Patient Question [8967] Patient Update [[id number]] Prescriptions as of 01/29/2021 [...] to check blood pressure daily. - Insulin [place], Disposabl e, (BD ULTRA-FINE SHEBA PEN NEEDLE) [...] HERLINDA ROBERTO MA on CNPN on 01-06-2021 [facility] FRANCISCO Grace ([id number]) 1940 [facility] Date Time Provider Department 01/06/21 EMELYN GIRALDO During your visit today, we recorded the following inf ormation about you: Kelvin Conn 01/06/2021 9:45 AM Signed Received update from [facility]. Placed in provider's i nbox for review. Route to [place] Allergies As of Date: 01/06/2021 Noted Allergy Reactio n CHOLESTYRAMINE 03/30/2012 14 - Other: See Comments Comments: caused low blood sugar MOBIC (MELOXICAM) 05/21/2009 7 - Swelling 9 - Itching PRAVACHOL (PRAVASTATIN SODIUM) 12/22/2009 5 - Intolera nce Comments: Myalgias. Date Reviewed: 12/24/2020 Reviewed by: Curly Dennison [facility] - Fully Assessed Reason for Visit: Patient Update [1234] Cmt: [facility] Prescriptions as of 01/06/2021 - [...] to check blood pressure daily. - Insulin [place], Disposabl e, (BD ULTRA-FINE SHEBA PEN NEEDLE) [...] on CNPN on 01-02-2021 [facility] Telephone (FPWADS) [facility] FRANCISCO Grace ([id number]) 1940 [facility] Date Time Provider Department 01/02/21 EMELYN GIRALDO During your visit today, we recorded the following inf ormation about you: Fied Hussein MA 01/02/2021 1:40 PM Signed Received MRI Brain without contrast from [facility]. Placed in provider's inbox for review. Route to [place] for scanning Allergies As of Date: 01/02/2021 Noted Allergy Reactio n CHOLESTYRAMINE 03/30/2012 14 - Other: See Comments Comments: caused low blood sugar MOBIC (MELOXICAM) 05/21/2009 7 - Swelling 9 - Itching PRAVACHOL (PRAVASTATIN SODIUM) 12/22/2009 5 - Intolera nce Comments: Myalgias. Date Reviewed: 12/24/2020 Reviewed by: Curly Dennison [facility] - Fully Assessed Reason for Visit: MRI Report [[id number]] Cmt: [facility] Prescriptions as of 01/02/2021 - insulin [...] to check blood pressure daily. - Insulin [place], Disposabl e, (BD ULTRA-FINE SHEBA PEN NEEDLE) [...] Encounter Status:Closed by FIDE HUSSEIN on 01/02/21 [facility] FRANCISCO Grace ([id number]) 1940 [facility] Date Time Provider Department 01/02/21 EMELYN [...] Fully Assessed Reason for Visit: Film Cath/Echo [[id number]] Prescriptions as of 01/07/2021 - insulin glargine [...] to check blood pressure daily. - Insulin [place], Disposabl e, (BD ULTRA-FINE SHEBA PEN NEEDLE) [...] 01/07/21 [facility] on 12-31-2020 [facility] Telephone (FPWADS) [facility] FRANCISCO Grace ([id number]) 1940 [facility] [place] Date Time Provider Department 12/31/20 EMELYN GIRALDO FPMARGARET During your visit today, we recorded the following inf ormation about you: Kelvin Conn 12/31/2020 9:31 AM Signed Received update from [facility]. Placed in provider's inbo x for review. Route to [place] Scanning Allergies As of Date: 12/31/2020 Noted Allergy Reactio n CHOLESTYRAMINE 03/30/2012 14 - Other: See Comments Comments: caused low blood sugar MOBIC (MELOXICAM) 05/21/2009 7 - Swelling 9 - Itching PRAVACHOL (PRAVASTATIN SODIUM) 12/22/2009 5 - Intolera nce Comments: Myalgias. Date Reviewed: 12/24/2020 Reviewed by: Curly Dennison [facility] - Fully Assessed Reason for Visit: Patient Update [1234] Cmt: [facility] Prescriptions as of 12/31/2020 - [...] to check blood pressure daily. - Insulin [place], Disposabl e, (BD ULTRA-FINE SHEBA PEN NEEDLE) [...] Visit (PHMEWO) [facility] FRANCISCO Grace ([id number]) 1940 [facility] Date Time Provider Department 12/24/20 1:30 PM CURLY DENNISON SONU During your visit today, we recorded the following inf ormation about you: Pulse Blood pressure 70/minute 161/77 Curly Dennison [facility] 01/01/2021 4:10 PM Signed Primary Care Pharmacy [...] are not present. Adherence: denies missed doses Pharmacy:?[facility] mail order? Rx coverage:?Medicare Affordability:?insulin and Victoza costly Diabetes supplies:?[employer] System:?none ACTIVE PROBLEM LIST Chronic Pain of [...] check blood pressure d arsh. - Insulin [place], Disposabl e, (BD ULTRA-FINE SHEBA PEN NEEDLE) [...] (MEO) [facility] RADHAFRANCISCO Mcgowan ([id number]) 1940 [place] Date Time Provider Department 11/27/20 2:30 PM DIONE CHANG During your visit today, we recorded the following inf ormation about you: Pulse Blood pressure 73/minute 137/61 Dione Chang [facility] 11/27/2020 3:15 PM Signed Patient consents to [...] are not present Adherence: denies missed doses Pharmacy:?[facility] mail order? Rx coverage:?Medicare Affordability:?insulin and Victoza costly Diabetes supplies:?[email or web address] System:?none Past medical, family and social [...] Inject 30 Units subcutaneously every morning. Insulin [place], Disposable, (BD ULTRA-FINE SHEBA PEN NEEDLE) 32 gauge x Use to inject insulin and Victoza, 2 injections per da y. Lancets (more content not included)... CNOV on 10-23-2020 CNOV Office Visit ([facility]) [facility] FRANCISCO THOMAS ([id number]) 1940 [place] Date Time Provider Department 10/23/20 3:00 PM DIONE CHANG During your visit today, we recorded the following inf ormation about you: Pulse Blood pressure 77/minute 156/68 Dione Chang [facility] 10/23/2020 4:17 PM Signed Patient consents to pharmacy collaborative practice [facility]. REASON FOR CONSULT: DM?and BP GOALS: A1c [...] so losartan was switched to valsartan. At [facility] t PharmD visit on 09/18, patient noted [...] not present Adherence: denies missed doses Pharmacy: [facility] mail order Rx coverage: Medicare Affordability: insulin [...] Inject 30 Units subcutaneously every morning. Insulin [place], Disposable, (BD ULTRA-FINE SHEBA PEN NEEDLE) 32 gauge x 5/32 Use to inject insulin and Victoza, 2 injections per da y. Lancets (ONETOUCH ULTRASOFT LANCETS) lancets Test blood sugar four times daily. Uncontrolled diabetes type 2 on insulin latanoprost (XA (more content not included)... CNOV on 09-18-2020 CNOV Office Visit (PHMEWO) [facility] FRANCISCO THOMAS ([id number]) 1940 M [facility] Time Provider Department 09/18/20 2:00 PM DIONE CHANG During your visit today, we recorded the following inf ormation about you: Pulse Blood pressure 71/minute 142/68 Dione Chang [facility] 09/18/2020 2:38 PM Signed Patient consents to pharmacy [facility]. REASON FOR CONSULT: DM?and BP [...] out of pocket; doesn't happen often Pharmacy: [facility] mail order Rx coverage: Medicare Affordability: insulin [...] blood pressure arminda ly. blood sugar diagnostic (ePig GamesTOUCH ULTRA TEST) test stri p Use to check blood sugar three times daily. hydroCHLOROthiazide (HYDRODIURIL, ESIDRI X) 25 mg tablet Take 1 tablet by mouth once daily. insulin glargine (BASAGLAR KWIKPEN U-100 INSULIN) 100 unit/mL (3 mL) Inject 30 Units subcutaneously every morning. Insulin [place], Disposable, (BD ULTRA-FINE SHEBA PEN NEEDLE) 32 gauge x 5/32 Use to inject insulin and Victoza, 2 injections per da y. Lancets (EquidateUCH ULTRASOFT LANCETS) lancets Test blood sugar four [...] (PHMEWO) [facility] FRANCISCO THOMAS ([id number]) 1940 [place] Date Time Provider Department 08/27/20 11:30 AM CURLY DENNISON During your visit today, we recorded the following inf ormation about you: Pulse Blood pressure 66/minute 165/79 Curly Dennison [facility] 09/11/2020 2:04 PM Signed Patient consents to pharmacy collaborative practice [facility]. REASON FOR CONSULT: DM?and BP GOALS: A1c [...] ASA:?No ? MEDICATIONS:?- ? Adherence:?denies?missed doses. ? Pharmacy:?[facility] mail order? Rx coverage:?Medicare ? Affordability:?insulin/victoza more [...] check blood pressure d aily. - Insulin [place], Disposabl e, (BD ULTRA-FINE SHEBA PEN NEEDLE) [...] (more content not included)... CNNURSE on 08-25-2020 [facility] Nurse Visit (FAMPWS) Jesse Arizmendi nd FRANCISCO Grace ([id number]) 1940 [facility] Date Time Provider Department 08/25/20 11:15 AM [place] NURSE FAMPWS During your visit today, we [...] pulse was same Referring Provider: EMELYN GIRALDO [[id number]] Allergies As of Date: 08/25/2020 Noted Allergy [...] 08/25/20 OLEN on 08-25-2020 [facility] Telephone (CHINEDU) [facility] FRANCISCO THOMAS ([id number]) 1940 [facility] Date Time Provider Department 08/25/20 EMELYN [...] consider increase in meds. MD Curly Laird, [facility] 08/27/2020 12:13 PM Signed Patient seen in [...] Dennison, PharmD, BCACP Primary Care Clinical Pharmacist [facility] Emelyn Giraldo MD 08/27/2020 1:12 PM [...] 06-24-2020 Albumin Urine Random 133.3 mg/L Normal [facility] Comment on above: Performed By: #### LIPB, CMP , UACR, HBA1C ####[facility] [place], [place] [phone] Albumin/Creat Ratio 65 mg/g High <30 [facility] Comment on above: Result Comment: Adult [...] By: #### LIPB, CMP , UACR, HBA1C ####[facility] [address] [place], [place] [phone] Creatinine,Urine,Ran 205.5 mg/dL Normal 20-300 [facility] Comment on above: Performed By: #### LIPB, CMP , UACR, HBA1C ####[facility] [address] [place], [place] [phone] CNOV on 06-24-2020 CNOV Office Visit (FPWADS) [facility] FRANCISCO THOMAS ([id number]) 1940 [place] Date Time Provider Department 06/24/20 2:00 PM [...] disease, with long-term current use of insulin ([facility]) (primary encounter diagnosis) (E11.29, E11.65, R80.9, Z79.4) 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 Due [...] 06-24-2020 Albumin [Mass/Vol] 4.3 g/dL Normal 3.9-4.[address] [facility] Comment on above: Performed By: #### LIPB, CMP , UACR, HBA1C ####[facility] [address] [place], [place] [phone] ALP [Catalytic activity/Vol] 55 U/L Normal 38-[address] [facility] Comment on above: Performed By: #### LIPB, CMP , UACR, HBA1C ####[facility] [address] [place], [place] [phone] ALT [Catalytic activity/Vol] 16 U/L Normal 10-[address] [facility] Comment on above: Performed By: #### LIPB, CMP , UACR, HBA1C ####[facility] [address] [place], [place] [phone] Anion gap [Moles/Vol] 12 mmol/L Normal 9-[address] [facility] Comment on above: Performed By: #### LIPB, CMP , UACR, HBA1C ####[facility] [place] [phone] AST [Catalytic activity/Vol] 18 U/L Normal 14-[address] [facility] Comment on above: Performed By: #### LIPB, CMP , UACR, HBA1C ####[facility] [place] [phone] Bilirubin [Mass/Vol] 0.3 mg/dL Normal 0.2-1.3 [facility] Comment on above: Performed By: #### LIPB, CMP , UACR, HBA1C ####[place] [address] [place] [phone] Calcium [Mass/Vol] 9.5 mg/dL Normal 8.5-10.[address] [facility] Comment on above: Performed By: #### LIPB, CMP , UACR, HBA1C ####[place] [address] [place] [phone] Chloride [Moles/Vol] 100 mmol/L Normal 97-105 [facility] Comment on above: Performed By: #### LIPB, CMP , UACR, HBA1C ####[facility] [place] [phone] CO2 [Moles/Vol] 31 mmol/L High 22-30 [facility] Comment on above: Performed By: #### LIPB, CMP , UACR, HBA1C ####[facility] [place] [phone] Creatinine [Mass/Vol] 1.09 mg/dL Normal 0.73-1.[address] [facility] Comment on above: Performed By: #### LIPB, CMP , UACR, HBA1C ####[facility] [place] [phone] eGFR- Amer. >[address] [facility] Comment on above: Performed By: #### LIPB, CMP , UACR, HBA1C ####[facility] [address] AvOmni Hospitals [place], [place] [phone] eGFR-All Other Races >60 Normal [facility] Comment on above: Result Comment: eGFR (Estima [...] By: #### LIPB, CMP , UACR, HBA1C ####[facility] [address] [place], [place] [phone] Glucose [Mass/Vol] 135 mg/dL High 74-[address] [facility] Comment on above: Result Comment: The [place] Diabetes Association (ADA) provides guidance for cutoff [...] for diagnosis of diabetes. Reference: Standards of [facility] Care in Diabetes 2016, [place] Diabetes Association. Diabetes Care. 2016.39(Suppl 1). Performed By: #### LIPB, CMP , UACR, HBA1C ####[facility] [address] [place], [place] [phone] Potassium [Moles/Vol] 4.7 mmol/L Normal 3.7-5.[address] [facility] Comment on above: Performed By: #### LIPB, CMP , UACR, HBA1C ####[facility] [place], [place] [phone] Protein [Mass/Vol] 6.6 g/dL Normal 6.3-8.[address] [facility] Comment on above: Performed By: #### LIPB, CMP , UACR, HBA1C ####[place] [address] [place] [phone] Sodium [Moles/Vol] 143 mmol/L Normal 136-[address] [facility] Comment on above: Performed By: #### LIPB, CMP , UACR, HBA1C ####[place] [address] [place], [place] [phone] Urea nitrogen [Mass/Vol] 22 mg/dL Normal 9-24 [facility] Comment on above: Performed By: #### LIPB, CMP , UACR, HBA1C ####[facility] [place], [place] [phone] Hemoglobin A1c on 06-24-2020 Glucose [Mass/Vol] 146 mg/dL Normal [facility] Comment on above: Result Comment: eAG: (Estima pilo average glucose) is a calculated value from HgbA1c and is rep resentative of the average blood glucose level in the last 2- 3 month period. Performed By: #### LIPB, CMP , UACR, HBA1C ####[place] [address] [place], [place] [phone] HbA1c (Bld) [Mass fraction] 6.7 % High 4.3-5.[address] [facility] Comment on above: Result Comment: [place] Jolynn betes Association guidelines indicate that patients with HgbA1c in the range 5.7-6.4% are at increased risk for development of diab etes, and intervention by lifestyle modification may be benefici al. HgbA1c greater or equal to 6.5% is considered diagnostic of jolynn betes. Performed By: #### LIPB, CMP , UACR, HBA1C ####[facility] [address] [place], [place] [phone] Lipid Panel, Basic on 06-24-2020 Cholesterol [Mass/Vol] 205 mg/dL High <200 [facility] Comment on above: Result Comment: <200 mg/dL, Desirable 200-239 mg/dL, Borderline hi gh >239 mg/dL, High Performed By: #### LIPB, CMP , UACR, HBA1C ####[facility] [place], [place] [phone] Cholesterol in HDL [Mass/Vol] 38 mg/dL Low >[address] [facility] Comment on above: Result Comment: 40-59 mg/dL, Acceptable >59 mg/dL, High: Negative ri sk factor for coronary heart disease <40 mg/dL, Low: Positive ris k factor for coronary heart disease Performed By: #### LIPB, CMP , UACR, HBA1C ####[facility] [place], [place] [phone] Cholesterol in LDL [Mass/Vol] 132 mg/dL High <[address] [facility] Comment on above: Result Comment: <100 mg/dL, Optimal 100-129 mg/dL, Near optimal/ above optimal 130-159 mg/dL, Borderline hi gh 160-189 mg/dL, High >189 mg/dL, Very high Secondary prevention optimal LDL Cholesterol levels are recommended to be < 70 mg/dL Performed By: #### LIPB, CMP , UACR, HBA1C ####[facility] [place], [place] [phone] Fasting Time Unknown Normal [facility] Comment on above: Performed By: #### LIPB, CMP , UACR, HBA1C ####[facility] [place], [place] [phone] LDL:HDL Ratio 3.47 High <2.54 [facility] Comment on above: Result Comment: Reference: 1. National Cholesterol Educ ation Program ATP III Guideline At-A-Glance Quick Desk Reference: National Heart, Lung, and Blood [place]. National Institutes of Health. 2001: NIH Publication No. 01-3305. 2. An International Atherosc lerosis Society position paper: global recommendations for the management of dyslipidemia: executive summary, Atherosclerosis. 2014: 232(2):410-413. Performed By: #### LIPB, CMP , UACR, HBA1C ####[facility] [place], [place] [phone] Non HDL Cholesterol 167 mg/dL High <130 [facility] Comment on above: Result Comment: <130 mg/dL, Optimal 130-159 mg/dL, Near optimal/ above optimal 160-189 mg/dL, Borderline hi gh 190-219 mg/dL, High >219 mg/dL, Very high Secondary prevention optimal non HDL Cholesterol levels are recommended to be < 100 mg/dL Performed By: #### LIPB, CMP , UACR, HBA1C ####[facility] [place], [place] [phone] TC:HDL Ratio 5.39 High <5.10 [facility] Comment on above: Performed By: #### LIPB, CMP , UACR, HBA1C ####[place] [address] [place] [phone] Triglyceride [Mass/Vol] 177 mg/dL High <150 [facility] Comment on above: Result Comment: <150 mg/dL, Normal 150-199 mg/dL, Borderline hi gh 200-499 mg/dL, High >499 mg/dL, Very high Performed By: #### LIPB, CMP , UACR, HBA1C ####[facility] [place], [place] [phone] VLDL Cholesterol 35 mg/dL High <30 [facility] Comment on above: Performed By: #### LIPB, CMP , UACR, HBA1C ####[facility] [place], [place] [phone] OBSOLETE on 05-29-2020 OBSOLETE Refill (PHMEWO) [facility] FRANCISCO THOMAS ([id number]) 1940 [place] Date Time Provider Department 05/29/20 EMELYN GIRALDO [...] Authorizing Provider: EMELYN GIRALDO MD Denise Swanson [facility] 06/03/2020 12:27 PM Signed Patient is scheduled [...] KNEE 1 OR 2 VIEWS ORIGINAL Normal [facility] RIGHT XR KNEE 1 OR 2 VIEWS [...] (P) [Mass/Vol] 1.10 10 3/mcL High 0.15-1.00 [facility] ([place]) Comment on above: Performed By: #### CBC, ADIF F, ANEU #### [place] [address] #### BMP, GFR #### [address] [address] Basophils (Bld) [#/Vol] 0.00 10 3/mcL Normal 0.00-0.19 [facility] ([place]) Comment on above: Performed By: #### CBC, ADIF F, ANEU #### [place] [address] #### BMP, GFR #### [address] [address] Basophils/100 WBC (Bld) 0.4 % Normal 0.0-2.5 [facility] ([place]) Comment on above: Performed By: #### CBC, ADIF F, ANEU #### [place] [address] #### BMP, GFR #### [address] [address] Eosinophils (Bld) [#/Vol] 0.10 10 3/mcL Normal 0.00-0.40 [facility] ([place]) Comment on above: Performed By: #### CBC, ADIF F, ANEU #### [place] [address] #### BMP, GFR #### [address] [address] Eosinophils/100 WBC (Bld) 0.6 % Normal 0.0-7.0 [facility] ([place]) Comment on above: Performed By: #### CBC, ADIF F, ANEU #### [address] [address] #### BMP, GFR #### [address] [address] Lymphocytes (Bld) [#/Vol] 1.70 10 3/mcL Normal 0.77-3.85 [facility] ([place]) Comment on above: Performed By: #### CBC, ADIF F, ANEU #### [address] [address] #### BMP, GFR #### [address] [address] Lymphocytes/100 WBC (Bld) 15.8 % Normal 10.0-50.0 [facility] ([place]) Comment on above: Performed By: #### CBC, ADIF F, ANEU #### [address] [address] #### BMP, GFR #### [address] [address] Monocytes/100 WBC (Bld) 10.6 % Normal 1.7-13.0 [facility] ([place]) Comment on above: Performed By: #### CBC, ADIF F, ANEU #### [address] [address] #### BMP, GFR #### [address] [address] Neutrophils/100 WBC (Bld) 72.6 % Normal 37.0-80.0 [facility] ([place]) Comment on above: Performed By: #### CBC, ADIF F, ANEU #### [address] [address] #### BMP, GFR #### [address] [address] .GFR on 03-07-2019 GFR 74 ml/min/1.73sqm Normal [facility] ([place]) Comment on above: Result Comment: GFR Population mean for Afri can [place], Non- Americans Ages 20-29 = 116 mL/min/1.73 [...] #### CBC, ADIF F, ANEU #### [place] [address] [address] GFR Non- 61 ml/min/1.73sqm Normal [facility] ([place]) Comment on above: Result Comment: GFR Population mean for Afri can [place], Non- Americans Ages 20-29 = 116 mL/min/1.73 [...] #### CBC, ADIF F, ANEU #### [place] [address] [address] .NEUABS on 03-07-2019 Neutrophils (Bld) [#/Vol] 7.70 10 3/mcL High 2.85-6.16 [facility] ([place]) Comment on above: Performed By: #### CBC, ADIF F, ANEU #### [place] [address] [address] #### BMP, GFR #### [address] [address] BMP on 03-07-2019 Calcium [Mass/Vol] 8.8 mg/dL Normal 8.4-10.2 [facility] ([place]) Comment on above: Performed By: #### CBC, ADIF F, ANEU #### [place] [address] #### BMP, GFR #### [address] [address] Chloride [Moles/Vol] 102 mmol/L Normal 98-107 [facility] ([place]) Comment on above: Performed By: #### CBC, ADIF F, ANEU #### [place] [address] #### BMP, GFR #### [address] [address] CO2 [Moles/Vol] 33 mmol/L High 23-31 [facility] ([place]) Comment on above: Performed By: #### CBC, ADIF F, ANEU #### [place] [address] #### BMP, GFR #### [place] [id number] Creatinine [Mass/Vol] 1.15 mg/dL Normal 0.70-1.30 [facility] ([place]) Comment on above: Performed By: #### CBC, ADIF F, ANEU #### [place] [address] #### BMP, GFR #### [address] [address] Electrolyte Balance 6.0 mEq/L Normal [facility] ([place]) Comment on above: Performed By: #### CBC, ADIF F, ANEU #### [place] [id number] #### BMP, GFR #### [place] [id number] Glucose [Mass/Vol] 120 mg/dL High 83-110 [facility] ([place]) Comment on above: Performed By: #### CBC, ADIF F, ANEU #### [address] [address] #### BMP, GFR #### [address] [address] Potassium [Moles/Vol] 4.0 mmol/L Normal 3.5-5.1 [facility] ([place]) Comment on above: Performed By: #### CBC, ADIF F, ANEU #### [address] [address] #### BMP, GFR #### [address] [address] Sodium [Moles/Vol] 141 mmol/L Normal 136-145 [facility] ([place]) Comment on above: Performed By: #### CBC, ADIF F, ANEU #### [address] [address] #### BMP, GFR #### [address] [address] Urea nitrogen [Mass/Vol] 24 mg/dL High 7-18 [facility] ([place]) Comment on above: Performed By: #### CBC, ADIF F, ANEU #### [address] [address] #### BMP, GFR #### [address] [address] Urea nitrogen/Creatinine [Mass ratio] 21 ratio Normal 7-2 7 [facility] ([place]) Comment on above: Performed By: #### CBC, ADIF F, ANEU #### [address] [address] #### BMP, GFR #### [address] [address] CBC on 03-07-2019 Erythrocyte distribution width 14.4 % Normal 11.5-14.5 [facility] (RBC) [Ratio] ([place]) Comment on above: Performed By: #### CBC, ADIF F, ANEU #### [place] [address] #### BMP, GFR #### [address] [address] Hematocrit (Bld) [Volume 37.4 % Low 42.0-52.0 [facility] ([place]) fraction] Comment on above: Performed By: #### CBC, ADIF F, ANEU #### [place] [address] #### BMP, GFR #### [place] [address] Hemoglobin (Bld) [Mass/Vol] 12.4 G/dL Low 14.0-18.0 [facility] ([place]) Comment on above: Performed By: #### CBC, ADIF F, ANEU #### [place] [address] #### BMP, GFR #### [place] [address] MCH (RBC) [Entitic mass] 30.0 pg Normal 27.0-31.2 [facility] ([place]) Comment on above: Performed By: #### CBC, ADIF F, ANEU #### [place] [address] #### BMP, GFR #### [address] [address] MCHC (RBC) [Mass/Vol] 33.2 G/dL Normal 31.8-35.4 [facility] ([place]) Comment on above: Performed By: #### CBC, ADIF F, ANEU #### [place] [address] #### BMP, GFR #### [place] [address] MCV (RBC) [Entitic vol] 90.4 fL Normal 80.0-94.0 [facility] ([place]) Comment on above: Performed By: #### CBC, ADIF F, ANEU #### [place] [address] #### BMP, GFR #### [place] [address] Platelet mean volume (Bld) 9.0 fL Normal 7.4-10.4 [facility] ([place]) [Entitic vol] Comment on above: Performed By: #### CBC, ADIF F, ANEU #### [place] [address] #### BMP, GFR #### [place] [address] Platelets (Bld) [#/Vol] 205 10 3/mcL Normal 130-400 [facility] ([place]) Comment on above: Performed By: #### CBC, ADIF F, ANEU #### [place] [address] #### BMP, GFR #### [place] [address] RBC (Bld) [#/Vol] 4.14 10 6/mcL Normal 4.04-6.13 [facility] ([place]) Comment on above: Performed By: #### CBC, ADIF F, ANEU #### [place] [address] #### BMP, GFR #### [place] [address] WBC (Bld) [#/Vol] 10.60 10 3/mcL Normal 4.60-10.80 [facility] ([place]) Comment on above: Performed By: #### CBC, ADIF F, ANEU #### [place] [address] #### BMP, GFR #### [place] [address] .Auto Diff on 02-19-2019 Ammonia (P) [Mass/Vol] 0.80 10 3/mcL Normal 0.15-1.00 [facility] ([place]) Comment on above: Performed By: #### CBC, ADIF F, ANEU #### [place] [id number] Basophils (Bld) [#/Vol] 0.10 10 3/mcL Normal 0.00-0.19 [facility] ([place]) Comment on above: Performed By: #### CBC, ADIF F, ANEU #### [address] [address] Basophils/100 WBC (Bld) 0.7 % Normal 0.0-2.5 [facility] ([place]) Comment on above: Performed By: #### CBC, ADIF F, ANEU #### [address] [address] Eosinophils (Bld) [#/Vol] 0.10 10 3/mcL Normal 0.00-0.40 [facility] ([place]) Comment on above: Performed By: #### CBC, ADIF F, ANEU #### [address] [address] Eosinophils/100 WBC (Bld) 1.0 % Normal 0.0-7.0 [facility] ([place]) Comment on above: Performed By: #### CBC, ADIF F, ANEU #### [address] [address] Lymphocytes (Bld) [#/Vol] 1.80 10 3/mcL Normal 0.77-3.85 [facility] ([place]) Comment on above: Performed By: #### CBC, ADIF F, ANEU #### [address] [address] Lymphocytes/100 WBC (Bld) 19.7 % Normal 10.0-50.0 [facility] ([place]) Comment on above: Performed By: #### CBC, ADIF F, ANEU #### [address] [address] Monocytes/100 WBC (Bld) 8.4 % Normal 1.7-13.0 [facility] ([place]) Comment on above: Performed By: #### CBC, ADIF F, ANEU #### [address] [address] Neutrophils/100 WBC (Bld) 70.2 % Normal 37.0-80.0 [facility] ([place]) Comment on above: Performed By: #### CBC, ADIF F, ANEU #### [place] [address] [address] .GFR on 02-19-2019 GFR 62 ml/min/1.73sqm Normal [facility] ([place]) Comment on above: Result Comment: GFR Population mean for Afri can [place], Non- Americans Ages 20-29 = 116 mL/min/1.73 [...] meters Performed By: #### BMP, GFR #### [place] [address] GFR Non- 51 ml/min/1.73sqm Normal [facility] ([place]) Comment on above: Result Comment: GFR Population mean for Afri can [place], Non- Americans Ages 20-29 = 116 mL/min/1.73 [...] meters Performed By: #### BMP, GFR #### [address] [address] .NEUABS on 02-19-2019 Neutrophils (Bld) [#/Vol] 6.30 10 3/mcL High 2.85-6.16 [facility] ([place]) Comment on above: Performed By: #### CBC, ADIF F, ANEU #### [address] [address] BMP on 02-19-2019 Calcium [Mass/Vol] 9.3 mg/dL Normal 8.4-10.2 [facility] ([place]) Comment on above: Performed By: #### BMP, GFR #### [address] [address] Chloride [Moles/Vol] 101 mmol/L Normal 98-107 [facility] ([place]) Comment on above: Performed By: #### BMP, GFR #### [address] [address] CO2 [Moles/Vol] 32 mmol/L High 23-31 [facility] ([place]) Comment on above: Performed By: #### BMP, GFR #### [address] [address] Creatinine [Mass/Vol] 1.34 mg/dL High 0.70-1.30 [facility] ([place]) Comment on above: Performed By: #### BMP, GFR #### [address] [address] Electrolyte Balance 9.0 mEq/L Normal [facility] ([place]) Comment on above: Performed By: #### BMP, GFR #### [address] [address] Glucose [Mass/Vol] 187 mg/dL High 83-110 [facility] ([place]) Comment on above: Performed By: #### BMP, GFR #### [address] [address] Potassium [Moles/Vol] 4.3 mmol/L Normal 3.5-5.1 [facility] ([place]) Comment on above: Performed By: #### BMP, GFR #### [address] [address] Sodium [Moles/Vol] 142 mmol/L Normal 136-145 [facility] ([place]) Comment on above: Performed By: #### BMP, GFR #### [address] [address] Urea nitrogen [Mass/Vol] 30 mg/dL High 7-18 [facility] ([place]) Comment on above: Performed By: #### BMP, GFR #### [address] [address] Urea nitrogen/Creatinine [Mass ratio] 22 ratio Normal 7-2 7 [facility] ([place]) Comment on above: Performed By: #### BMP, GFR #### [address] [address] CBC on 02-19-2019 Erythrocyte distribution width 14.7 % High 11.5-14.5 [facility] ([place]) (RBC) [Ratio] Comment on above: Performed By: #### CBC, ADIF F, ANEU #### [address] [address] Hematocrit (Bld) [Volume 42.9 % Normal 42.0-52.0 [facility] ([place]) fraction] Comment on above: Performed By: #### CBC, ADIF F, ANEU #### [address] [address] Hemoglobin (Bld) [Mass/Vol] 14.2 G/dL Normal 14.0-18.0 [facility] ([place]) Comment on above: Performed By: #### CBC, ADIF F, ANEU #### [address] [address] MCH (RBC) [Entitic mass] 30.2 pg Normal 27.0-31.2 [facility] ([place]) Comment on above: Performed By: #### CBC, ADIF F, ANEU #### [address] [address] MCHC (RBC) [Mass/Vol] 33.2 G/dL Normal 31.8-35.4 [facility] ([place]) Comment on above: Performed By: #### CBC, ADIF F, ANEU #### [address] [address] MCV (RBC) [Entitic vol] 91.1 fL Normal 80.0-94.0 [facility] ([place]) Comment on above: Performed By: #### CBC, ADIF F, ANEU #### [address] [address] Platelet mean volume (Bld) 9.3 fL Normal 7.4-10.4 [facility] ([place]) [Entitic vol] Comment on above: Performed By: #### CBC, ADIF F, ANEU #### [address] [address] Platelets (Bld) [#/Vol] 264 10 3/mcL Normal 130-400 [facility] ([place]) Comment on above: Performed By: #### CBC, ADIF F, ANEU #### [address] [address] RBC (Bld) [#/Vol] 4.71 10 6/mcL Normal 4.04-6.13 [facility] ([place]) Comment on above: Performed By: #### CBC, ADIF F, ANEU #### [address] [address] WBC (Bld) [#/Vol] 8.90 10 3/mcL Normal 4.60-10.80 [facility] ([place]) Comment on above: Performed By: #### CBC, ADIF F, ANEU #### [address] [address] [address] KNEE W/O CONTRAST RIGHT on 9 CT KNEE W/O CONTRAST ORIGINAL Normal [facility] RIGHT CT KNEE W/O CONTRAST RIGHT F [...] Type Note Facility 12-24-[address]: [id number] [facility] Author: Curly Dennison RPh Service: ? [...] are not present. Adherence: denies missed doses Pharmacy:?[facility] mail order? Rx coverage:?Medicare Affordability:?insulin and Victoza costl y Diabetes supplies:?[employer] System:?none ACTIVE PROBLEM LIST Chronic Pain [...] check bl ood pressure daily. - Insulin [place], Disposable, (BD ULTRA -FINE SHEBA PEN NEEDLE) [...] Type Note Facility 11-27-2020 Note HNO ID: [id number] [facility] Author: Dione Chang [facility] Service: ? Author Type: Pharmacist Type: Progress Notes Filed: 11/27/2020 3:15 PM Note Text: Patient consents to pharmacy collaborati ve practice agreement. REASON FOR CONSULT: DM?and BP GOALS: A1c CONSULTING PROVIDER:??Miguel Giraldo Date of Consult:?01/30/19 Francisco Thomas is a 80 year old male prese [facility] for follow up visit in person. Patient consents to pharmacy col laborative practice agreement. . Patient was last seen by PCP, Dr. Lise Giraldo MD on 06/24/20. Patient is presenting today for f/up pha rmacotherapy management appointment for diabetes and HTN. At [facility] PCP appt, pt had self-stopped Victoza and [...] are not present Adherence: denies missed doses Pharmacy:?[facility] mail order? Rx coverage:?Medicare Affordability:?insulin and Victoza costl y Diabetes supplies:?[employer] System:?none Past medical, family and social history [...] bloo d pressure daily. blood sugar diagnostic (Tekora ULTRA T EST) test strip Use to check blood sugar three times daily. hydroCHLOROthiazide (HYDRODIURIL, ESIDRI X) 25 mg tablet Take 1 tablet by mouth once daily. insulin glargine (BASAGLAR KWIKPEN U-100 INSULIN) 100 unit/mL (3 mL) Inject 30 Units subcutaneously every mor chong. Insulin [place], Disposable, (BD ULTRA-F INE SHEBA PEN NEEDLE) [...] Type Note Facility 10-23-[address]: [id number] [facility] Author: Dione Chang [facility] Service: ? Author Type: Pharmacist Type: Progress [...] night 2-3x/week. Patient has moved amlodipine to [facility] and is not missing any doses. [...] not present Adherence: denies missed doses Pharmacy: [facility] mail order Rx coverage: Medicare Affordability: insulin [...] 30 Units subcutaneously every mor chong. Insulin [place], Disposable, (BD ULTRA-F INE SHEBA PEN NEEDLE) 32 gauge x Use to inject insulin and Victoza, 2 injections per day. Lancets (ePig GamesTOUCH ULTRASOFT LANCETS) toni cets Test blood sugar [...] Type Note Facility 09-18-[address]: [id number] [facility] Author: Dione Chang [facility] Service: ? Author Type: Pharmacist Type: Progress [...] pharmacy in the past and here to re-[facility] for DM and BP management. At [...] out of pocket; doesn't happen often Pharmacy: [facility] mail order Rx coverage: Medicare Affordability: insulin and Victoza costl y Diabetes supplies: [employer] Organization System: none ACTIVE PROBLEM LIST Chronic [...] bloo d pressure daily. blood sugar diagnostic (EquidateUCH ULTRA T EST) test strip Use to check blood sugar three times daily. hydroCHLOROthiazide (HYDRODIURIL, ESIDRI X) 25 mg tablet Take 1 tablet by mouth once daily. insulin glargine (BASAGLAR KWIKPEN U-100 INSULIN) 100 unit/mL (3 mL) Inject 30 Units subcutaneously every mor chong. Insulin [place], Disposable, (BD ULTRA-F INE SHEBA PEN NEEDLE) 32 gauge x /32 Use to inject insulin and Victoza, 2 injections per day. Lancets (ePig GamesTOUCH ULTRASOFT LANCETS) toni cets Test blood sugar [...] Type Note Facility 08-27-[address]: [id number] [facility] Author: Curly Dennison [facility] Service: ? Author Type: Pharmacist Type: Progress Notes Filed: 09/11/2020 2:04 PM Note Text: Patient consents to pharmacy collaborati ve practice agreement. REASON FOR CONSULT: DM?and BP GOALS: A1c CONSULTING PROVIDER:??Miguel Giraldo Date of Consult:?01/30/19 Francisco Thomas is a 80 year old male was l ast seen by PCP, Dr. Emelyn Giraldo MD on 06/24/2020. Subjective: Patient is presenting today for [facility] pharmacotherapy management appointment for diabetes. At last [...] On ASA:?No ? MEDICATIONS:? Adherence:?denies?missed doses. ? Pharmacy:?[facility] mail order? Rx coverage:?Medicare ? Affordability:?insulin/victoza more [...] check bl ood pressure daily. - Insulin [place], Disposable, (BD ULTRA -FINE SHEBA PEN NEEDLE) 32 gauge x /32 Use to inject insulin and Victoza, 2 injections per day. - potassium chloride ER (KLOR-CON M20) 2 0 mEq tablet Take 1 tablet by mouth twice daily. - traMADol (ULTRAM) 50 mg tablet Take 50 -100 mg by mouth every 6 hours as needed. - blood sugar diagnostic (ePig GamesTOUCH ULTRA TEST) test strip Use to check blood sugar three times daily. - Lancets (ePig GamesTOUCH ULTRASOFT LANCETS) l ancets Test blood sugar [...] Type Note Facility 08-25-2020 Note HNO ID: [id number] [facility] Author: Ivett Laboy LPN Service: [...] Type Note Facility 06-24-[address]: [id number] [facility] Author: Emelyn Giraldo Service: ? Author [...] Take 1 tablet by mouth once daily. RIA: No metFORMIN ER (GLUCOPHAGE XR) 500 mg [...] Type Note Facility 06-08-2020 Note HNO ID: [id number] [facility] Author: Jackie Banks Service: ? Author Type: Agile Qa Tester Type: Progress Notes Filed: 06/08/2020 1:01 PM [...] visits Payer: Payor: T MEDICARE / [facility] / Product Type: PPO [...] healthc are decisions with a power of securities attorney, living will, or advance direct rosalinda? No. Please bring a copy to your next appointment or email to [email or web address] Referrals: N/A Message Sent to Practice: NO Navigation Signature: Jackie Banks Population Health Shannan r June 08, 2020 1:00 PM Clinical Note 06-08-2020 Note Date & Type Note Facility 06-08-2020 Note Patient Outreach (KETTY) [facility] FRANCISCO THOMAS ([id number]) 1940 M Date Time Provider Department 06/08/20 JACKIE BANKS During your visit today, we recorded the following information about you: Jackie Banks Population Health Alineato r 06/08/2020 1:01 PM Signed POPULATION HEALTH NAVIGATION OUTREACH Action/ Patient is due for dilated retinal exam. Patient had ALLYSSA with Dr. Suzi bettencourt in [place] on 02/05/2020. Will have results sent Contact made with patient or family memb er? YES Pt identified by name and : YES Outreach Outcome/Action Spoke to patient or caregiver: Patient s cheduled Reason for Outreach Care Gap or Scheduling/Wellness visits Payer: Payor: JULIANGustavoMARCELINO MEDICARE / Plan: AETMARCELINO [facility] C[facility] PPO / Product Type: PPO [...] Directives Completed: Have you ever planned for [facility] healthcare decisions with a power of securities attorney, living will, or advance directives? No. [...] - Fully Assessed Reason for Visit: Population [facility] Navigation Outreach [3 [phone]] Cmt: Deferred Care [...] Note Facility 04-15-2020 Note Patient Outreach (COOCC3) [facility] FRANCISCO THOMAS ([id number]) 1940 M Date Time Provider Department 04/15/20 [...] Fully Assessed Order(s):SARS-COVID VACCINE 1ST DOSE APPT [[id number]] Order #: [id number] FUTURE Prescriptions as of 04/15/2020 Sig: LOSARTAN [...] 2, uncontro lled, w*02/19/2015 Encounter Status:Closed by [email or web address] [email or web address] R on 04/18/20 Summary Purpose Family History No Family History Records FoundNo Family History Records Found Advance Directives No Advanced Directives Records FoundNo Advanced Directives Records Found Additional Source Comments (unrecognized section and cont ent) No Status Records FoundNo Preg maik Status Records Found INFORMATION SOURCE (unrecognized section and content) DATE CREATED AUTHOR AUTHOR'S ORGANIZ ATION 03/08/2019 [facility] Found ation ([place]) DATE CREATED AUTHOR AUTHOR'S ORGANIZATIO N 04/05/2021 [facility] FOR RECORDS PERTAINING TO PATIENTS WHO [...] BE BASED ON THE PRIMARY CLINICAL RECORDS. [facility] [employer] provides no warranty or guarantee of the accuracy or completeness of information in this document.
[2022-02-24 16:51] LABS: Squamous Epithelial Cells - UA 0-5 SEEN /hpf (0-5); White Blood Cells 0-5 SEEN /hpf (0-5)
[2022-02-24] MEDS: 0.9% Normal Saline 1,000 ML 100 ML IV (18:29)
[2022-02-24] MEDS: Furosemide 40 MG/4 ML Vial IV (19:15)
[2022-02-24] MEDS: 0.9% Saline Lock 10 ML Syringe IV (19:15)
--- NOTE | 2022-02-24 19:18 | NURSING ---
IVF rate turned down to [facility] pending MD clarification d/t pt just received IV lasix
--- NOTE | 2022-02-24 19:19 | NURSING ---
[facility] notified regarding breathing tx.
[2022-02-24] MEDS: Ipratropium/Albuterol Sulfate 3 ML AMPUL.NEB INHALATION (19:40)
--- OUTSIDE RECORDS SUMMARY | 2022-02-24 19:41 | XMS RPT_ITS | CCD ---
:1940 Author Organization [employer] Results Test Name Value Interpretation Reference Range Facility [facility] on 02-02-2021 [facility] Telephone (FPWADS) [facility] FRANCISCO THOMAS ([id number]) 1940 [facility] Date Time Provider Department 02/02/21 EMELYN GIRALDO During your visit today, we recorded the following inf ormation about you: Kelvin Conn 02/02/2021 10:02 AM Signed Received orders from [facility] [place]. Placed in provider's inbox for review. Route to [place] Allergies As of Date: 02/02/2021 Noted Allergy Reactio n CHOLESTYRAMINE 03/30/2012 14 - Other: See Comments Comments: caused low blood sugar MOBIC (MELOXICAM) 05/21/2009 7 - Swelling 9 - Itching PRAVACHOL (PRAVASTATIN SODIUM) 12/22/2009 5 - Intolera nce Comments: Myalgias. Date Reviewed: 12/24/2020 Reviewed by: Curly Dennison [facility] - Fully Assessed Reason for Visit: Orders [731] Cmt: [facility] Prescriptions as of 02/02/2021 - insulin glargine [...] to check blood pressure daily. - Insulin [place], Disposabl e, (BD ULTRA-FINE SHEBA PEN NEEDLE) 32 gauge x 5/32 Use to inject insulin and Victoza, 2 injections per da y. - potassium chloride ER (KLOR-CON M20) 20 mEq tablet Take 1 tablet by mouth twice daily. - traMADol (ULTRAM) 50 mg tablet Take 50-100 mg by mouth every 6 hours as needed. - blood sugar diagnostic (Osprey DataTOUCH ULTRA TEST) test st rip Use to check blood sugar three times daily. - Lancets (Osprey DataTOUCH ULTRASOFT LANCETS) lancets Test blood sugar four [...] by KELVIN CONN on ABRAHAM on 01-28-2021 [facility] Telephone (FPWADS) [facility] FRANCISCO Grace ([id number]) 1940 [facility] Date Time Provider Department 01/28/21 EMELYN GIRALDO During your visit today, we recorded the following inf ormation about you: Eleanor Ojeda Pss 01/28/2021 12:02 PM Signed Patient discharging from [facility] today and asking if Dr will follow for home Health orders starting tomorrow Nursing P T O T Speech Therapy Had a stroke w/left sided weakness Will need to know today if Dr will Follow Please call Caroline Brizuela APRN.CONSTRUCTION ANALYST 01/28/2021 3:59 PM S igned Please call [...] Fully Assessed Reason for Visit: Patient Question [2227] Patient Update [[id number]] Prescriptions as of 01/29/2021 - insulin glargine [...] to check blood pressure daily. - Insulin [place], Disposabl e, (BD ULTRA-FINE SHEBA PEN NEEDLE) [...] HERLINDA ROBERTO MA on CNPN on 01-06-2021 [facility] Telephone (KEN) [facility] FRANCISCO Grace ([id number]) 1940 [facility] Date Time Provider Department 01/06/21 EMELYN GIRALDO During your visit today, we recorded the following inf ormation about you: Kelvin Conn 01/06/2021 9:45 AM Signed Received update from [facility]. Placed in provider's i nbox for review. Route to MA Scanning Allergies As of Date: 01/06/2021 Noted Allergy Reactio n CHOLESTYRAMINE 03/30/2012 14 - Other: See Comments Comments: caused low blood sugar MOBIC (MELOXICAM) 05/21/2009 7 - Swelling 9 - Itching PRAVACHOL (PRAVASTATIN SODIUM) 12/22/2009 5 - Intolera nce Comments: Myalgias. Date Reviewed: 12/24/2020 Reviewed by: Curly Dennison [facility] - Fully Assessed Reason for Visit: Patient Update [1234] Cmt: [facility] Prescriptions as of 01/06/2021 - insulin [...] to check blood pressure daily. - Insulin [place], Disposabl e, (BD ULTRA-FINE SHEBA PEN NEEDLE) [...] on CNPN on 01-02-2021 [facility] Telephone (FPWADS) [facility] FRANCISCO Grace ([id number]) 1940 [facility] Date Time Provider Department 01/02/21 EMELYN GIRALDO During your visit today, we recorded the following inf ormation about you: Fide Hussein MA 01/02/2021 1:40 PM Signed Received MRI Brain without contrast from [facility]. Placed in provider's inbox for review. Route to [place] for scanning Allergies As of Date: 01/02/2021 Noted Allergy Reactio n CHOLESTYRAMINE 03/30/2012 14 - Other: See Comments Comments: caused low blood sugar MOBIC (MELOXICAM) 05/21/2009 7 - Swelling 9 - Itching PRAVACHOL (PRAVASTATIN SODIUM) 12/22/2009 5 - Intolera nce Comments: Myalgias. Date Reviewed: 12/24/2020 Reviewed by: Curly Dennison [facility] - Fully Assessed Reason for Visit: MRI Report [[id number]] Cmt: [facility] Prescriptions as of 01/02/2021 - insulin glargine [...] to check blood pressure daily. - Insulin [place], Disposabl e, (BD ULTRA-FINE SHEBA PEN NEEDLE) [...] Encounter Status:Closed by FIDE HUSSEIN on 01/02/21 [facility] Telephone (KEN) [facility] FRANCISCO Grace ([id number]) 1940 [facility] Date Time Provider Department 01/02/21 EMELYN [...] Fully Assessed Reason for Visit: Film Cath/Echo [0852] Prescriptions as of 01/07/2021 - insulin glargine [...] to check blood pressure daily. - Insulin [place], Disposabl e, (BD ULTRA-FINE SHEBA PEN NEEDLE) [...] 01/07/21 CNPN on 12-31-2020 [facility] Telephone (FPWADS) [facility] FRANCISCO Grace ([id number]) 1940 [place] Date Time Provider Department 12/31/20 EMELYN GIRALDO FPMARGRAET During your visit today, we recorded the following inf ormation about you: Kelvin Conn 12/31/2020 9:31 AM Signed Received update from [facility]. Placed in provider's inbo x for review. Route to MA Scanning Allergies As of Date: 12/31/2020 Noted Allergy Reactio n CHOLESTYRAMINE 03/30/2012 14 - Other: See Comments Comments: caused low blood sugar MOBIC (MELOXICAM) 05/21/2009 7 - Swelling 9 - Itching PRAVACHOL (PRAVASTATIN SODIUM) 12/22/2009 5 - Intolera nce Comments: Myalgias. Date Reviewed: 12/24/2020 Reviewed by: Curly Dennison [facility] - Fully Assessed Reason for Visit: Patient Update [1234] Cmt: [facility] Prescriptions as of 12/31/2020 - insulin [...] to check blood pressure daily. - Insulin [place], Disposabl e, (BD ULTRA-FINE SHEBA PEN NEEDLE) [...] Visit (PHMEWO) [facility] FRANCISCO Grace ([id number]) 1940 [facility] Date Time Provider Department 12/24/20 1:30 PM CURLY DENNISON SONU During your visit today, we recorded the following inf ormation about you: Pulse Blood pressure 70/minute 161/77 Curly Dennison [facility] 01/01/2021 4:10 PM Signed Primary Care [...] are not present. Adherence: denies missed doses Pharmacy:?[facility] mail order? Rx coverage:?Medicare Affordability:?insulin and Victoza costly Diabetes supplies:?[employer] System:?none ACTIVE PROBLEM LIST Chronic Pain of [...] check blood pressure d arsh. - Insulin [place], Disposabl e, (BD ULTRA-FINE SHEBA PEN NEEDLE) [...] (MEO) [facility] RADHAFRANCISCO Mcgowan ([id number]) 1940 [place] Date Time Provider Department 11/27/20 2:30 PM DIONE CHANG During your visit today, we recorded the following inf ormation about you: Pulse Blood pressure 73/minute 137/61 Dione Chang [facility] 11/27/2020 3:15 PM Signed Patient consents to pharmacy collaborative practice dariana. REASON FOR CONSULT: DM?and BP GOALS: A1c [...] are not present Adherence: denies missed doses Pharmacy:?[facility] [place] mail order? Rx coverage:?Medicare Affordability:?insulin and Victoza costly Diabetes supplies:?[employer] System:?none Past medical, family and social [...] Inject 30 Units subcutaneously every morning. Insulin [place], Disposable, (BD ULTRA-FINE SHEBA PEN NEEDLE) 32 gauge x Use to inject insulin and Victoza, 2 injections per da y. Lancets (more content not included)... CNOV on 10-23-2020 CNOV Office Visit ([facility]) [facility] FRANCISCO THOMAS ([id number]) 1940 [place] Date Time Provider Department 10/23/20 3:00 PM DIONE CHANG During your visit today, we recorded the following inf ormation about you: Pulse Blood pressure 77/minute 156/68 Dione Chang [facility] 10/23/2020 4:17 PM Signed Patient consents to pharmacy collaborative practice [facility]. REASON FOR CONSULT: DM?and BP [...] so losartan was switched to valsartan. At [facility] t PharmD visit on 09/18, patient noted [...] not present Adherence: denies missed doses Pharmacy: [facility] mail order Rx coverage: Medicare Affordability: insulin [...] Inject 30 Units subcutaneously every morning. Insulin [place], Disposable, (BD ULTRA-FINE SHEBA PEN NEEDLE) 32 gauge x 5/32 Use to inject insulin and Victoza, 2 injections per da y. Lancets (ONETOUCH ULTRASOFT LANCETS) lancets Test blood sugar four times daily. Uncontrolled diabetes type 2 on insulin latanoprost (XA (more content not included)... CNOV on 09-18-2020 CNOV Office Visit (PHMEWO) [facility] FRANCISCO THOMAS ([id number]) 1940 M [facility] Time Provider Department 09/18/20 2:00 PM DIONE CHANG During your visit today, we recorded the following inf ormation about you: Pulse Blood pressure 71/minute 142/68 Dione Chang [facility] 09/18/2020 2:38 PM Signed Patient consents to pharmacy [facility]. REASON FOR CONSULT: DM?and BP GOALS: A1c CONSULTING PROVIDER:??Emelyn Giraldo Date of Consult:?[birth year] ? Francisco D William is a 80 year ol d male was last seen by PCP, Dr. Emleyn Giraldo MD on 06/24/2020. Patient is presenting [...] out of pocket; doesn't happen often Pharmacy: [facility] [place] mail order Rx coverage: Medicare Affordability: insulin [...] blood pressure arminda ly. blood sugar diagnostic (Osprey DataTOUCH ULTRA TEST) test stri p Use to check blood sugar three times daily. hydroCHLOROthiazide (HYDRODIURIL, ESIDRI X) 25 mg tablet Take 1 tablet by mouth once daily. insulin glargine (BASAGLAR KWIKPEN U-100 INSULIN) 100 unit/mL (3 mL) Inject 30 Units subcutaneously every morning. Insulin [place], Disposable, (BD ULTRA-FINE SHEBA PEN NEEDLE) 32 gauge x 5/32 Use to inject insulin and Victoza, 2 injections per da y. Lancets (CoubUCH ULTRASOFT LANCETS) lancets Test blood sugar four [...] (PHMEWO) [facility] FRANCISCO THOMAS ([id number]) 1940 [place] Date Time Provider Department 08/27/20 11:30 AM CURLY DENNISON During your visit today, we recorded the following inf ormation about you: Pulse Blood pressure 66/minute 165/79 Curly Dennison [facility] 09/11/2020 2:04 PM Signed Patient consents to pharmacy collaborative practice [facility]. REASON FOR CONSULT: DM?and BP [...] ASA:?No ? MEDICATIONS:?- ? Adherence:?denies?missed doses. ? Pharmacy:?[facility] [place] mail order? Rx coverage:?Medicare ? Affordability:?insulin/victoza more [...] check blood pressure d aily. - Insulin [place], Disposabl e, (BD ULTRA-FINE SHEBA PEN NEEDLE) [...] (more content not included)... CNNURSE on 08-25-2020 [facility] Nurse Visit (FAMPWS) Jesse Arizmendi nd FRANCISCO Grace ([id number]) 1940 [facility] Date Time Provider Department 08/25/20 11:15 AM ND NURSE FAMPWS During your visit today, we [...] pulse was same Referring Provider: EMELYN GIRALDO [[id number]] Allergies As of Date: 08/25/2020 Noted Allergy [...] 08/25/20 OLEN on 08-25-2020 OLEN Telephone (CHINEDU) [facility] FRANCISCO THOMAS ([id number]) 1940 [facility] Date Time Provider Department 08/25/20 EMELYN [...] consider increase in meds. MD Curly Laird, [facility] 08/27/2020 12:13 PM Signed Patient seen [...] Dennison, PharmD, BCACP Primary Care Clinical Pharmacist [facility] Emelyn Giraldo MD 08/27/2020 1:12 PM [...] 06-24-2020 Albumin Urine Random 133.3 mg/L Normal [facility] Comment on above: Performed By: #### LIPB, CMP , UACR, HBA1C ####[facility], [place] [phone] Albumin/Creat Ratio 65 mg/g High <[address] [facility] Comment on above: Result Comment: Adult [...] By: #### LIPB, CMP , UACR, HBA1C ####[facility] [address] [place], [place] [phone] Creatinine,Urine,Ran 205.5 mg/dL Normal 20-300 [facility] Comment on above: Performed By: #### LIPB, CMP , UACR, HBA1C ####[facility] [address] [place], [place] [phone] CNOV on 06-24-2020 CNOV Office Visit (FPWADS) [facility] FRANCISCO THOMAS ([id number]) 1940 [place] Date Time Provider Department 06/24/20 2:00 PM [...] disease, with long-term current use of insulin ([facility]) (primary encounter diagnosis) (E11.29, E11.65, R80.9, Z79.4) 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 Due [...] [Mass/Vol] 4.3 g/dL Normal 3.9-4.9 [facility] Comment on above: Performed By: #### LIPB, CMP , UACR, HBA1C ####[facility] [address] [place], [place] [phone] ALP [Catalytic activity/Vol] 55 U/L Normal 38-113 [facility] Comment on above: Performed By: #### LIPB, CMP , UACR, HBA1C ####[facility] [address] [place], [place] [phone] ALT [Catalytic activity/Vol] 16 U/L Normal 10-54 [facility] Comment on above: Performed By: #### LIPB, CMP , UACR, HBA1C ####[facility] [address] [place], [place] [phone] Anion gap [Moles/Vol] 12 mmol/L Normal 9-18 [facility] Comment on above: Performed By: #### LIPB, CMP , UACR, HBA1C ####[facility] [place] [phone] AST [Catalytic activity/Vol] 18 U/L Normal 14-40 [facility] Comment on above: Performed By: #### LIPB, CMP , UACR, HBA1C ####[facility] [place] [phone] Bilirubin [Mass/Vol] 0.3 mg/dL Normal 0.2-1.3 [facility] Comment on above: Performed By: #### LIPB, CMP , UACR, HBA1C ####[place] [address] [place] [phone] Calcium [Mass/Vol] 9.5 mg/dL Normal 8.5-10.2 [facility] Comment on above: Performed By: #### LIPB, CMP , UACR, HBA1C ####[place] [address] [place] [phone] Chloride [Moles/Vol] 100 mmol/L Normal 97-105 [facility] Comment on above: Performed By: #### LIPB, CMP , UACR, HBA1C ####[facility] [place] [phone] CO2 [Moles/Vol] 31 mmol/L High 22-30 [facility] Comment on above: Performed By: #### LIPB, CMP , UACR, HBA1C ####[facility] [place] [phone] Creatinine [Mass/Vol] 1.09 mg/dL Normal 0.73-1.22 [facility] Comment on above: Performed By: #### LIPB, CMP , UACR, HBA1C ####[facility] [place] [phone] eGFR- Amer. >60 Normal [facility] Comment on above: Performed By: #### LIPB, CMP , UACR, HBA1C ####[facility] [address] [place], [place] [phone] eGFR-All Other Races >60 Normal [facility] Comment on above: Result Comment: eGFR [...] By: #### LIPB, CMP , UACR, HBA1C ####[facility] [address], [place] [phone] Glucose [Mass/Vol] 135 mg/dL High 74-99 [facility] Comment on above: Result Comment: The [place] Diabetes Association (ADA) provides guidance for cutoff [...] for diagnosis of diabetes. Reference: Standards of [facility] Care in Diabetes 2016, [place] Diabetes Association. Diabetes Care. 2016.39(Suppl 1). Performed By: #### LIPB, CMP , UACR, HBA1C ####[facility] [address] [place], [place] [phone] Potassium [Moles/Vol] 4.7 mmol/L Normal 3.7-5.1 [facility] Comment on above: Performed By: #### LIPB, CMP , UACR, HBA1C ####[facility] [place], [place] [phone] Protein [Mass/Vol] 6.6 g/dL Normal 6.3-8.0 [facility] Comment on above: Performed By: #### LIPB, CMP , UACR, HBA1C ####[place] [address] [place] [phone] Sodium [Moles/Vol] 143 mmol/L Normal 136-144 [facility] Comment on above: Performed By: #### LIPB, CMP , UACR, HBA1C ####[place] [address] [place], [place] [phone] Urea nitrogen [Mass/Vol] 22 mg/dL Normal 9-24 [facility] Comment on above: Performed By: #### LIPB, CMP , UACR, HBA1C ####[facility] [place], [place] [phone] Hemoglobin A1c on 06-24-2020 Glucose [Mass/Vol] 146 mg/dL Normal [facility] Comment on above: Result Comment: eAG: (Estima pilo average glucose) is a calculated value from HgbA1c and is rep resentative of the average blood glucose level in the last 2- 3 month period. Performed By: #### LIPB, CMP , UACR, HBA1C ####[place] [address] [place], [place] [phone] HbA1c (Bld) [Mass fraction] 6.7 % High 4.3-5.6 [facility] Comment on above: Result Comment: [place] Jolynn betes Association guidelines indicate that patients with HgbA1c in the range 5.7-6.4% are at increased risk for development of diab etes, and intervention by lifestyle modification may be benefici al. HgbA1c greater or equal to 6.5% is considered diagnostic of jolynn betes. Performed By: #### LIPB, CMP , UACR, HBA1C ####[facility] [address] [place], [place] [phone] Lipid Panel, Basic on 06-24-2020 Cholesterol [Mass/Vol] 205 mg/dL High <200 [facility] Comment on above: Result Comment: <200 mg/dL, Desirable 200-239 mg/dL, Borderline hi gh >239 mg/dL, High Performed By: #### LIPB, CMP , UACR, HBA1C ####[facility] [place], [place] [phone] Cholesterol in HDL [Mass/Vol] 38 mg/dL Low >39 [facility] Comment on above: Result Comment: 40-59 mg/dL, Acceptable >59 mg/dL, High: Negative ri sk factor for coronary heart disease <40 mg/dL, Low: Positive ris k factor for coronary heart disease Performed By: #### LIPB, CMP , UACR, HBA1C ####[facility] [place], [place] [phone] Cholesterol in LDL [Mass/Vol] 132 mg/dL High <100 [facility] Comment on above: Result Comment: <100 mg/dL, Optimal 100-129 mg/dL, Near optimal/ above optimal 130-159 mg/dL, Borderline hi gh 160-189 mg/dL, High >189 mg/dL, Very high Secondary prevention optimal LDL Cholesterol levels are recommended to be < 70 mg/dL Performed By: #### LIPB, CMP , UACR, HBA1C ####[facility] [place], [place] [phone] Fasting Time Unknown Normal [facility] Comment on above: Performed By: #### LIPB, CMP , UACR, HBA1C ####[facility] [place], [place] [phone] LDL:HDL Ratio 3.47 High <2.54 [facility] Comment on above: Result Comment: Reference: 1. National Cholesterol Educ ation Program ATP III Guideline At-A-Glance Quick Desk Reference: National Heart, Lung, and Blood [place]. National Institutes of Health. 2001: NIH Publication No. 01-3305. 2. An International Atherosc lerosis Society position paper: global recommendations for the management of dyslipidemia: executive summary, Atherosclerosis. 2014: 232(2):410-413. Performed By: #### LIPB, CMP , UACR, HBA1C ####[facility] [place], [place] [phone] Non HDL Cholesterol 167 mg/dL High <[address] [facility] Comment on above: Result Comment: <130 mg/dL, Optimal 130-159 mg/dL, Near optimal/ above optimal 160-189 mg/dL, Borderline hi gh 190-219 mg/dL, High >219 mg/dL, Very high Secondary prevention optimal non HDL Cholesterol levels are recommended to be < 100 mg/dL Performed By: #### LIPB, CMP , UACR, HBA1C ####[facility] [place], [place] [phone] TC:HDL Ratio 5.39 High <5.10 [facility] Comment on above: Performed By: #### LIPB, CMP , UACR, HBA1C ####[place] [address] [place] [phone] Triglyceride [Mass/Vol] 177 mg/dL High <150 [facility] Comment on above: Result Comment: <150 mg/dL, Normal 150-199 mg/dL, Borderline hi gh 200-499 mg/dL, High >499 mg/dL, Very high Performed By: #### LIPB, CMP , UACR, HBA1C ####[facility] [place], [place] [phone] VLDL Cholesterol 35 mg/dL High <30 [facility] Comment on above: Performed By: #### LIPB, CMP , UACR, HBA1C ####[facility] [place], [place] [phone] OBSOLETE on 05-29-2020 OBSOLETE Refill (PHMEWO) [facility] FRANCISCO THOMAS ([id number]) 1940 [place] Date Time Provider Department 05/29/20 EMELYN GIRALDO [...] Authorizing Provider: EMELYN GIRALDO MD Denise Swanson [facility] 06/03/2020 12:27 PM Signed Patient is scheduled [...] OR 2 VIEWS ORIGINAL Normal [facility] RIGHT XR KNEE 1 OR [...] (P) [Mass/Vol] 1.10 10 3/mcL High 0.15-1.00 [facility] ([place]) Comment on above: Performed By: #### CBC, ADIF F, ANEU #### [place] [address] #### BMP, GFR #### [address] [address] Basophils (Bld) [#/Vol] 0.00 10 3/mcL Normal 0.00-0.19 [facility] ([place]) Comment on above: Performed By: #### CBC, ADIF F, ANEU #### [place] [address] #### BMP, GFR #### [address] [address] Basophils/100 WBC (Bld) 0.4 % Normal 0.0-2.5 [facility] ([place]) Comment on above: Performed By: #### CBC, ADIF F, ANEU #### [place] [address] #### BMP, GFR #### [address] [address] Eosinophils (Bld) [#/Vol] 0.10 10 3/mcL Normal 0.00-0.40 [facility] ([place]) Comment on above: Performed By: #### CBC, ADIF F, ANEU #### [place] [address] #### BMP, GFR #### [address] [address] Eosinophils/100 WBC (Bld) 0.6 % Normal 0.0-7.0 [facility] ([place]) Comment on above: Performed By: #### CBC, ADIF F, ANEU #### [address] [address] #### BMP, GFR #### [address] [address] Lymphocytes (Bld) [#/Vol] 1.70 10 3/mcL Normal 0.77-3.85 A Replaced by [facility] ([place]) Comment on above: Performed By: #### CBC, ADIF F, ANEU #### [address] [address] #### BMP, GFR #### [address] [address] Lymphocytes/100 WBC (Bld) 15.8 % Normal 10.0-50.0 [facility] ([place]) Comment on above: Performed By: #### CBC, ADIF F, ANEU #### [address] [address] #### BMP, GFR #### [address] [address] Monocytes/100 WBC (Bld) 10.6 % Normal 1.7-13.0 [facility] ([place]) Comment on above: Performed By: #### CBC, ADIF F, ANEU #### [address] [address] #### BMP, GFR #### [address] [address] Neutrophils/100 WBC (Bld) 72.6 % Normal 37.0-80.0 [facility] ([place]) Comment on above: Performed By: #### CBC, ADIF F, ANEU #### [address] [address] #### BMP, GFR #### [address] [address] .GFR on 03-07-2019 GFR 74 ml/min/1.73sqm Normal [facility] ([place]) Comment on above: Result Comment: GFR Population mean for Afri can Montserr[place]ian, Non- Americans Ages 20-29 = 116 mL/min/1.73 [...] #### CBC, ADIF F, ANEU #### [place] [address] [address] GFR Non- 61 ml/min/1.73sqm Normal [facility] ([place]) Comment on above: Result Comment: GFR Population mean for Afri can Montserr[place]ian, Non- Americans Ages 20-29 = 116 mL/min/1.73 [...] #### CBC, ADIF F, ANEU #### [place] [address] [address] .NEUABS on 03-07-2019 Neutrophils (Bld) [#/Vol] 7.70 10 3/mcL High 2.85-6.16 A Replaced by [facility] ([place]) Comment on above: Performed By: #### CBC, ADIF F, ANEU #### [place] [address] [address] #### BMP, GFR #### [address] [address] BMP on 03-07-2019 Calcium [Mass/Vol] 8.8 mg/dL Normal 8.4-10.2 [facility] ([place]) Comment on above: Performed By: #### CBC, ADIF F, ANEU #### [place] [address] #### BMP, GFR #### [address] [address] Chloride [Moles/Vol] 102 mmol/L Normal 98-107 [facility] ([place]) Comment on above: Performed By: #### CBC, ADIF F, ANEU #### [place] [address] #### BMP, GFR #### [address] [address] CO2 [Moles/Vol] 33 mmol/L High 23-31 [facility] ([place]) Comment on above: Performed By: #### CBC, ADIF F, ANEU #### [place] [address] #### BMP, GFR #### [place] [id number] Creatinine [Mass/Vol] 1.15 mg/dL Normal 0.70-1.30 [facility] ([place]) Comment on above: Performed By: #### CBC, ADIF F, ANEU #### [place] [address] #### BMP, GFR #### [address] [address] Electrolyte Balance 6.0 mEq/L Normal [facility] ([place]) Comment on above: Performed By: #### CBC, ADIF F, ANEU #### [place] [id number] #### BMP, GFR #### [place] [id number] Glucose [Mass/Vol] 120 mg/dL High 83-110 [facility] ([place]) Comment on above: Performed By: #### CBC, ADIF F, ANEU #### [address] [address] #### BMP, GFR #### [address] [address] Potassium [Moles/Vol] 4.0 mmol/L Normal 3.5-5.1 [facility] ([place]) Comment on above: Performed By: #### CBC, ADIF F, ANEU #### [address] [address] #### BMP, GFR #### [address] [address] Sodium [Moles/Vol] 141 mmol/L Normal 136-145 [facility] ([place]) Comment on above: Performed By: #### CBC, ADIF F, ANEU #### [address] [address] #### BMP, GFR #### [address] [address] Urea nitrogen [Mass/Vol] 24 mg/dL High 7-18 [facility] ([place]) Comment on above: Performed By: #### CBC, ADIF F, ANEU #### [address] [address] #### BMP, GFR #### [address] [address] Urea nitrogen/Creatinine [Mass ratio] 21 ratio Normal 7-2 7 [facility] ([place]) Comment on above: Performed By: #### CBC, ADIF F, ANEU #### [address] [address] #### BMP, GFR #### [address] [address] CBC on 03-07-2019 Erythrocyte distribution width 14.4 % Normal 11.5-14.5 [facility] (RBC) [Ratio] ([place]) Comment on above: Performed By: #### CBC, ADIF F, ANEU #### [place] [address] #### BMP, GFR #### [address] [address] Hematocrit (Bld) [Volume 37.4 % Low 42.0-52.0 [facility] ([place]) fraction] Comment on above: Performed By: #### CBC, ADIF F, ANEU #### [place] [address] #### BMP, GFR #### [place] [address] Hemoglobin (Bld) [Mass/Vol] 12.4 G/dL Low 14.0-18.0 [facility] ([place]) Comment on above: Performed By: #### CBC, ADIF F, ANEU #### [place] [address] #### BMP, GFR #### [place] [address] MCH (RBC) [Entitic mass] 30.0 pg Normal 27.0-31.2 [facility] ([place]) Comment on above: Performed By: #### CBC, ADIF F, ANEU #### [place] [address] #### BMP, GFR #### [address] [address] MCHC (RBC) [Mass/Vol] 33.2 G/dL Normal 31.8-35.4 [facility] ([place]) Comment on above: Performed By: #### CBC, ADIF F, ANEU #### [place] [address] #### BMP, GFR #### [place] [address] MCV (RBC) [Entitic vol] 90.4 fL Normal 80.0-94.0 [facility] ([place]) Comment on above: Performed By: #### CBC, ADIF F, ANEU #### [place] [address] #### BMP, GFR #### [place] [address] Platelet mean volume (Bld) 9.0 fL Normal 7.4-10.4 A Replaced by [facility] ([place]) [Entitic vol] Comment on above: Performed By: #### CBC, ADIF F, ANEU #### [place] [address] #### BMP, GFR #### [place] [address] Platelets (Bld) [#/Vol] 205 10 3/mcL Normal 130-400 [facility] ([place]) Comment on above: Performed By: #### CBC, ADIF F, ANEU #### [place] [address] #### BMP, GFR #### [place] [address] RBC (Bld) [#/Vol] 4.14 10 6/mcL Normal 4.04-6.13 [facility] ([place]) Comment on above: Performed By: #### CBC, ADIF F, ANEU #### [place] [address] #### BMP, GFR #### [place] [address] WBC (Bld) [#/Vol] 10.60 10 3/mcL Normal 4.60-10.80 [facility] ([place]) Comment on above: Performed By: #### CBC, ADIF F, ANEU #### [place] [address] #### BMP, GFR #### [place] [address] .Auto Diff on 02-19-2019 Ammonia (P) [Mass/Vol] 0.80 10 3/mcL Normal 0.15-1.00 [facility] ([place]) Comment on above: Performed By: #### CBC, ADIF F, ANEU #### [place] [phone] Basophils (Bld) [#/Vol] 0.10 10 3/mcL Normal 0.00-0.19 [facility] ([place]) Comment on above: Performed By: #### CBC, ADIF F, ANEU #### [address] [address] Basophils/100 WBC (Bld) 0.7 % Normal 0.0-2.5 [facility] ([place]) Comment on above: Performed By: #### CBC, ADIF F, ANEU #### [address] [address] Eosinophils (Bld) [#/Vol] 0.10 10 3/mcL Normal 0.00-0.40 A Replaced by [facility] ([place]) Comment on above: Performed By: #### CBC, ADIF F, ANEU #### [address] [address] Eosinophils/100 WBC (Bld) 1.0 % Normal 0.0-7.0 [facility] ([place]) Comment on above: Performed By: #### CBC, ADIF F, ANEU #### [address] [address] Lymphocytes (Bld) [#/Vol] 1.80 10 3/mcL Normal 0.77-3.85 A Replaced by [facility] ([place]) Comment on above: Performed By: #### CBC, ADIF F, ANEU #### [address] [address] Lymphocytes/100 WBC (Bld) 19.7 % Normal 10.0-50.0 [facility] ([place]) Comment on above: Performed By: #### CBC, ADIF F, ANEU #### [address] [address] Monocytes/100 WBC (Bld) 8.4 % Normal 1.7-13.0 [facility] ([place]) Comment on above: Performed By: #### CBC, ADIF F, ANEU #### [address] [address] Neutrophils/100 WBC (Bld) 70.2 % Normal 37.0-80.0 [facility] ([place]) Comment on above: Performed By: #### CBC, ADIF F, ANEU #### [place] [address] [address] .GFR on 02-19-2019 GFR 62 ml/min/1.73sqm Normal [facility] ([place]) Comment on above: Result Comment: GFR Population mean for Afri can Montserr[place]ian, Non- Americans Ages 20-29 = 116 mL/min/1.73 [...] meters Performed By: #### BMP, GFR #### [place] [address] GFR Non- 51 ml/min/1.73sqm Normal [facility] ([place]) Comment on above: Result Comment: GFR Population mean for Afri can [place], Non- Americans Ages 20-29 = 116 mL/min/1.73 [...] meters Performed By: #### BMP, GFR #### [address] [address] .NEUABS on 02-19-2019 Neutrophils (Bld) [#/Vol] 6.30 10 3/mcL High 2.85-6.16 A Replaced by [facility] ([place]) Comment on above: Performed By: #### CBC, ADIF F, ANEU #### [address] [address] BMP on 02-19-2019 Calcium [Mass/Vol] 9.3 mg/dL Normal 8.4-10.2 [facility] ([place]) Comment on above: Performed By: #### BMP, GFR #### [address] [address] Chloride [Moles/Vol] 101 mmol/L Normal 98-107 [facility] ([place]) Comment on above: Performed By: #### BMP, GFR #### [address] [address] CO2 [Moles/Vol] 32 mmol/L High 23-31 [facility] ([place]) Comment on above: Performed By: #### BMP, GFR #### [address] [address] Creatinine [Mass/Vol] 1.34 mg/dL High 0.70-1.30 [facility] ([place]) Comment on above: Performed By: #### BMP, GFR #### [address] [address] Electrolyte Balance 9.0 mEq/L Normal [facility] ([place]) Comment on above: Performed By: #### BMP, GFR #### [address] [address] Glucose [Mass/Vol] 187 mg/dL High 83-110 [facility] ([place]) Comment on above: Performed By: #### BMP, GFR #### [address] [address] Potassium [Moles/Vol] 4.3 mmol/L Normal 3.5-5.1 [facility] ([place]) Comment on above: Performed By: #### BMP, GFR #### [address] [address] Sodium [Moles/Vol] 142 mmol/L Normal 136-145 [facility] ([place]) Comment on above: Performed By: #### BMP, GFR #### [address] [address] Urea nitrogen [Mass/Vol] 30 mg/dL High 7-18 [facility] ([place]) Comment on above: Performed By: #### BMP, GFR #### [address] [address] Urea nitrogen/Creatinine [Mass ratio] 22 ratio Normal 7-2 7 [facility] ([place]) Comment on above: Performed By: #### BMP, GFR #### [address] [address] CBC on 02-19-2019 Erythrocyte distribution width 14.7 % High 11.5-14.5 [facility] ([place]) (RBC) [Ratio] Comment on above: Performed By: #### CBC, ADIF F, ANEU #### [address] [address] Hematocrit (Bld) [Volume 42.9 % Normal 42.0-52.0 [facility] ([place]) fraction] Comment on above: Performed By: #### CBC, ADIF F, ANEU #### [address] [address] Hemoglobin (Bld) [Mass/Vol] 14.2 G/dL Normal 14.0-18.0 [facility] ([place]) Comment on above: Performed By: #### CBC, ADIF F, ANEU #### [address] [address] MCH (RBC) [Entitic mass] 30.2 pg Normal 27.0-31.2 [facility] ([place]) Comment on above: Performed By: #### CBC, ADIF F, ANEU #### [address] [address] MCHC (RBC) [Mass/Vol] 33.2 G/dL Normal 31.8-35.4 [facility] ([place]) Comment on above: Performed By: #### CBC, ADIF F, ANEU #### [address] [address] MCV (RBC) [Entitic vol] 91.1 fL Normal 80.0-94.0 [facility] ([place]) Comment on above: Performed By: #### CBC, ADIF F, ANEU #### [address] [address] Platelet mean volume (Bld) 9.3 fL Normal 7.4-10.4 A Replaced by [facility] ([place]) [Entitic vol] Comment on above: Performed By: #### CBC, ADIF F, ANEU #### [address] [address] Platelets (Bld) [#/Vol] 264 10 3/mcL Normal 130-400 [facility] ([place]) Comment on above: Performed By: #### CBC, ADIF F, ANEU #### [address] [address] RBC (Bld) [#/Vol] 4.71 10 6/mcL Normal 4.04-6.13 [facility] ([place]) Comment on above: Performed By: #### CBC, ADIF F, ANEU #### [address] [address] WBC (Bld) [#/Vol] 8.90 10 3/mcL Normal 4.60-10.80 [facility] ([place]) Comment on above: Performed By: #### CBC, ADIF F, ANEU #### [address] [address] [address] KNEE W/O CONTRAST RIGHT on 9 CT KNEE W/O CONTRAST ORIGINAL Normal [facility] RIGHT CT KNEE W/O CONTRAST RIGHT [...] Type Note Facility 12-24-2020 Note HNO ID: [id number] [facility] Author: Curly Dennison RPh Service: ? Author [...] are not present. Adherence: denies missed doses Pharmacy:?[facility] mail order? Rx coverage:?Medicare Affordability:?insulin and Victoza costl y Diabetes supplies:?[employer] Organization System:?none ACTIVE PROBLEM LIST Chronic Pain [...] check bl ood pressure daily. - Insulin [place], Disposable, (BD ULTRA -FINE SHEBA PEN NEEDLE) [...] Type Note Facility 11-27-2020 Note HNO ID: [id number] [facility] mckay Author: Dione Chang [facility] Service: ? Author Type: Pharmacist Type: Progress Notes Filed: 11/27/2020 3:15 PM Note Text: Patient consents to pharmacy collaborati ve practice agreement. REASON FOR CONSULT: DM?and BP GOALS: A1c CONSULTING PROVIDER:??Miguel Giraldo Date of Consult:?01/30/19 Francisco Thomas is a 80 year old male prese [facility] for follow up visit in person. Patient consents to pharmacy col laborative practice agreement. . Patient was last seen by PCP, Dr. Lise Giraldo MD on 06/24/20. Patient is presenting today for f/up pha rmacotherapy management appointment for diabetes and HTN. At [facility] PCP appt, pt had self-stopped Victoza [...] are not present Adherence: denies missed doses Pharmacy:?[facility] mail order? Rx coverage:?Medicare Affordability:?insulin and Victoza costl y Diabetes supplies:?[employer] System:?none Past medical, family and social history [...] bloo d pressure daily. blood sugar diagnostic (PagaTodo Mobile ULTRA T EST) test strip Use to check blood sugar three times daily. hydroCHLOROthiazide (HYDRODIURIL, ESIDRI X) 25 mg tablet Take 1 tablet by mouth once daily. insulin glargine (BASAGLAR KWIKPEN U-100 INSULIN) 100 unit/mL (3 mL) Inject 30 Units subcutaneously every mor chong. Insulin [place], Disposable, (BD ULTRA-F INE SHEBA PEN NEEDLE) [...] Type Note Facility 10-23-2020 Note HNO ID: [id number] [facility] Author: Dione Chang [facility] Service: ? Author Type: Pharmacist Type: [...] BP seemed better since switching to vals cyaetano. He admitted to not doing great about [...] night 2-3x/week. Patient has moved amlodipine to [facility] and is not missing any doses. [...] not present Adherence: denies missed doses Pharmacy: [facility] mail order Rx coverage: Medicare Affordability: insulin [...] 30 Units subcutaneously every mor chong. Insulin [place], Disposable, (BD ULTRA-F INE SHEBA PEN NEEDLE) 32 gauge x Use to inject insulin and Victoza, 2 injections per day. Lancets (Osprey DataTOUCH ULTRASOFT LANCETS) toni cets Test blood sugar [...] Type Note Facility 09-18-2020 Note HNO ID: [id number] [facility] Author: Dione Chang [facility] Service: ? Author Type: Pharmacist Type: [...] pharmacy in the past and here to [facility] for DM and BP [...] out of pocket; doesn't happen often Pharmacy: [facility] mail order Rx coverage: Medicare Affordability: insulin and Victoza costl y Diabetes supplies: [employer] Organization System: none ACTIVE PROBLEM LIST Chronic [...] bloo d pressure daily. blood sugar diagnostic (CoubUCH ULTRA T EST) test strip Use to check blood sugar three times daily. hydroCHLOROthiazide (HYDRODIURIL, ESIDRI X) 25 mg tablet Take 1 tablet by mouth once daily. insulin glargine (BASAGLAR KWIKPEN U-100 INSULIN) 100 unit/mL (3 mL) Inject 30 Units subcutaneously every mor chong. Insulin [place], Disposable, (BD ULTRA-F INE SHEBA PEN NEEDLE) 32 gauge x /32 Use to inject insulin and Victoza, 2 injections per day. Lancets (Osprey DataTOUCH ULTRASOFT LANCETS) toni cets Test blood sugar [...] Type Note Facility 08-27-2020 Note HNO ID: [id number] [facility] Author: Curly Dennison [facility] Service: ? Author Type: Pharmacist Type: Progress Notes Filed: 09/11/2020 2:04 PM Note Text: Patient consents to pharmacy collaborati ve practice agreement. REASON FOR CONSULT: DM?and BP GOALS: A1c CONSULTING PROVIDER:??Miguel Giraldo Date of Consult:?01/30/19 Francisco Thomas is a 80 year old male was l ast seen by PCP, Dr. Emelyn Giraldo MD on 06/24/2020. Subjective: Patient is presenting today for [facility] pharmacotherapy management appointment for diabetes. At last [...] On ASA:?No ? MEDICATIONS:? Adherence:?denies?missed doses. ? Pharmacy:?[facility] mail order? Rx coverage:?Medicare ? Affordability:?insulin/victoza more [...] check bl ood pressure daily. - Insulin [place], Disposable, (BD ULTRA -FINE SHEBA PEN NEEDLE) 32 gauge x /32 Use to inject insulin and Victoza, 2 injections per day. - potassium chloride ER (KLOR-CON M20) 2 0 mEq tablet Take 1 tablet by mouth twice daily. - traMADol (ULTRAM) 50 mg tablet Take 50 -100 mg by mouth every 6 hours as needed. - blood sugar diagnostic (Osprey DataTOUCH ULTRA TEST) test strip Use to check blood sugar three times daily. - Lancets (Osprey DataTOUCH ULTRASOFT LANCETS) l ancets Test blood sugar [...] Type Note Facility 08-25-2020 Note HNO ID: [id number] [facility] mckay Author: Ivett Laboy LPN [...] Type Note Facility 06-24-2020 Note HNO ID: [id number] [facility] Author: Emelyn Giraldo Service: ? Author Type: [...] Type Note Facility 06-08-2020 Note HNO ID: [id number] [facility] Author: Jackie Banks Service: ? Author Type: Water Systems Engineer Type: Progress Notes Filed: 06/08/2020 1:01 PM [...] visits Payer: Payor: T MEDICARE / [facility] / Product Type: PPO [...] healthc are decisions with a power of gis coordinator, living will, or advance direct rosalinda? No. Please bring a copy to your next appointment or email to [email or web address] Referrals: N/A Message Sent to Practice: NO Navigation Signature: Jackei Banks Population Health Shannan r June 08, 2020 1:00 PM Clinical Note 06-08-2020 Note Date & Type Note Facility 06-08-2020 Note Patient Outreach (KETTY) [facility] FRANCISCO THOMAS ([id number]) 1940 M Date Time Provider Department 06/08/20 JACKIE BANKS During your visit today, we recorded the following information about you: Jackie Banks Population Health Alineato r 06/08/2020 1:01 PM Signed POPULATION HEALTH NAVIGATION OUTREACH Action/ Patient is due for dilated retinal exam. Patient had ALLYSSA with Dr. Suzi bettencourt in [place] on 02/05/2020. Will have results sent Contact made with patient or family memb er? YES Pt identified by name and : YES Outreach Outcome/Action Spoke to patient or caregiver: Patient s cheduled Reason for Outreach Care Gap or Scheduling/Wellness visits Payer: Payor: JULIANGustavoMARCELINO MEDICARE / Plan: AETMARCELINO [facility] C[facility] PPO / Product Type: PPO [...] Directives Completed: Have you ever planned for [facility] healthcare decisions with a power of gis coordinator, living will, or advance directives? No. Please [...] - Fully Assessed Reason for Visit: Population [facility] Navigation Outreach [3 910] Cmt: Deferred Care [...] Note Facility 04-15-2020 Note Patient Outreach (COOCC3) [facility] FRANCISCO THOMAS ([id number]) 1940 M Date Time Provider Department 04/15/20 [...] Fully Assessed Order(s):SARS-COVID VACCINE 1ST DOSE APPT [[id number]] Order #: [id number] FUTURE Prescriptions as of 04/15/2020 Sig: LOSARTAN [...] 2, uncontro lled, w*02/19/2015 Encounter Status:Closed by [employer] AlterGeoDAVID R on 04/18/20 Summary Purpose Family History No Family History Records FoundNo Family History Records Found Advance Directives No Advanced Directives Records FoundNo Advanced Directives Records Found Additional Source Comments (unrecognized section and cont ent) No Status Records FoundNo Preg maik Status Records Found INFORMATION SOURCE (unrecognized section and content) DATE CREATED AUTHOR AUTHOR'S ORGANIZ ATION 03/08/2019 [facility] Found ation ([place]) DATE CREATED AUTHOR AUTHOR'S ORGANIZATIO N 04/05/2021 [facility] FOR RECORDS PERTAINING TO PATIENTS WHO ARE [...] BE BASED ON THE PRIMARY CLINICAL RECORDS. [facility] [employer] provides no warranty or guarantee of the accuracy or completeness of information in this document.
[2022-02-24] MEDS: Gabapentin 300 MG Capsule PO (21:06)
[2022-02-24] MEDS: Carvedilol 25 MG Tablet PO (21:06)
[2022-02-24] MEDS: Latanoprost 0.005% 1 Bottle 1 DRP EACH EYE (21:06)
[2022-02-24] MEDS: Pramipexole Di-HCl 0.125 MG Tablet PO (21:06)
[2022-02-24] MEDS: Doxazosin 4 MG Tablet 8 MG PO (21:07)
[2022-02-24] MEDS: hydrALAZINE 50 MG Tablet PO (21:07)
[2022-02-24 23:35] LABS: Bedside Glucose 203 mg/dL (74-106)
[2022-02-25] VITALS (14 sets, daily range): BP systolic 150–167; BP diastolic 52–66; PULSE 54–102; RESP 12–20; TEMP 36.4–36.9; O2SAT 86–98
[2022-02-25] MEDS: hydrALAZINE 50 MG Tablet PO ×3 (06:26→21:50)
[2022-02-25] MEDS: Ipratropium/Albuterol Sulfate 3 ML AMPUL.NEB INHALATION ×3 (06:37→19:44)
[2022-02-25 07:00] LABS: Bedside Glucose 167 mg/dL (74-106)
[2022-02-25 07:16] LABS: Absolute Lymphocyte Count 1.19 X10^3/uL (0.83-4.51); Absolute Neutrophil Count 7.3 X10^3/uL (2.0-7.7); Basophil# 0.07 X10^3/uL; Basophil% 0.7 % (0-1); Eosinophil# 0.59 X10^3/uL; Eosinophils% 5.8 % (0-5); Hematocrit 26.8 % (40-54); Hemoglobin 8.5 g/dL (13.0-16.5); Lymphocyte # 1.19 X10^3/ul (0.83-4.51); Lymphocyte % 11.7 % (19-41); Mean Corp Hgb Conc 31.7 g/dL (32-36); Mean Corpuscular Hgb 29.5 pg (27.0-32.0); Mean Corpuscular Volume 93.1 fL (80-94); Mean Platelet Vol. 10.9 fl (6.2-12.0); Monocyte# 0.99 X10^3/uL; Monocyte% 9.7 % (0-10); NRBC Flagged by Analyzer 0 % (0-5); Neutrophil # 7.25 X10^3/uL (2.7-7.7); Neutrophil % 71.4 % (47-70); Platelet Count 280 K/mm3 (150-450); RBC Distribution Width CV 14.3 % (11.6-14.6); RBC Distribution Width SD 48.5 fl (35.1-43.9); Red Blood Count 2.88 M/mm3 (4.6-6.2); White Blood Count 10.2 K/mm3 (4.4-11.0)
[2022-02-25 08:01] LABS: Anion Gap 7 (5-15); BUN 53 mg/dL (7-18); BUN/Creat Ratio 26.1 RATIO (10-20); Calcium,Total 8.8 mg/dL (8.5-10.1); Chloride 107 mmol/L (98-107); Creatinine, Serum 2.03 mg/dL (0.70-1.30); EST Glomerular Filtration Rate 34 mL/min (>60); Est Glom Filt Rate - Afr Amer 41 mL/min (>60); Estimated Creatinine Clearance 30.79 ml/min; Glucose 161 mg/dL (74-106); Potassium 4.3 mmol/L (3.5-5.1); Sodium Level 139 mmol/L (136-145); Thyroid Stim Hormone (TSH) 0.91 uIU/mL (0.358-3.74)
[2022-02-25] MEDS: Ferrous Sulfate 325 MG Tablet PO (08:14)
[2022-02-25] MEDS: Carvedilol 25 MG Tablet PO ×2 (08:14→16:54)
[2022-02-25] MEDS: Clopidogrel Bisulfate 75 MG Tablet PO (08:14)
[2022-02-25] MEDS: Multivitamins,Ther W-Minerals Tablet 1 TABLET PO (08:14)
[2022-02-25] MEDS: Insulin Glargine-YFGN 100 UNIT/ML Pen 16 UNIT SC (08:14)
[2022-02-25] MEDS: Aspirin 81 MG TAB.CHEW PO (08:15)
[2022-02-25] MEDS: Sertraline 50 MG Tablet PO (08:15)
[2022-02-25] MEDS: amLODIPine 10 MG Tablet PO (08:16)
[2022-02-25] MEDS: Gabapentin 100 MG Capsule PO ×2 (08:17→16:54)
--- NOTE | 2022-02-25 09:03 | PN.HOSP_ITS ---
Subjective Subjective Follow-up for shortness of breath, dysphagia, CKD and generalized weakness Patient shortness of breath little better but he still has mild chest tightness. Leg swelling. Patient could not lay flat for MRI therefore postponed for tomorrow although suspicion for new stroke is low. Objective Data Objective Data Vital Signs: Vital Signs Temp Pulse Resp BP Pulse Ox O2 Del Method O2 Flow Rate 98.1 F 63 18 157/66 H 94 Nasal Cannula 2 02/25/22 08:07 02/25/22 08:07 02/25/22 08:07 02/25/22 08:07 02/25/22 08:07 02/25/22 08:07 02/25/22 08:07 FiO2 30 02/25/22 04:07 Oxygen Flow Rate (L/min) 2 Oxygen Delivery Method Nasal Cannula Weight: 190 lb 0.615 oz Body Mass Index (BMI) 25.8 Intake & Output: Intake and Output for Last 24 Hours 02/23/22 02/24/22 02/25/22 23:59 23:59 23:59 Intake Total 1113.67 / 1113.67 112 / 112 Output Total 300 / 300 1950 / 1950 Balance 813.67 / 813.67 -1838 / -1838 Lab / Micro Data Result Diagrams: 02/25/22 06:38 02/25/22 06:38 Labs: Laboratory Results - last 24 hr 02/24/22 15:00: WBC 10.4, RBC 2.78 L, Hgb 8.7 L, Hct 25.7 L, MCV 92.4, MCH 31.3, MCHC 33.9, RDW Std Deviation 48.8 H, RDW Coeff of Cait 14.3, Plt Count 260, MPV 10.7, Immature Gran % (Auto) 0.800, Neut % (Auto) 73.9 H, Lymph % (Auto) 10.5 L, Carver % (Auto) 9.9, Eos % (Auto) 4.4, Baso % (Auto) 0.5, Absolute Neuts (auto) 7.7, Absolute Lymphs (auto) 1.09, Nucleated RBC % 0 02/24/22 15:00: Sodium 138, Potassium 4.6, Chloride 107, Carbon Dioxide 25.0, Anion Gap 6, BUN 60 H, Creatinine 1.96 H, Estim Creat Clear Calc 28.11, Est GFR (MDRD) Af Amer 42 L, Est GFR (MDRD) Non-Af 35 L, BUN/Creatinine Ratio 30.6 H, Glucose 227 H, Calcium 8.7 02/24/22 15:00: Phosphorus 2.8, Magnesium 2.1 02/24/22 15:50: Urine Color Yellow, Urine Clarity Sl. Cloudy, Urine pH 6.0, Ur Specific [place] 1.015, Urine Protein 100 H, Urine Glucose (UA) Normal, Urine Ketones Negative, Urine Occult Blood Negative, Urine Nitrite Negative, Urine Bilirubin Negative, Urine Urobilinogen Normal, Ur Leukocyte Esterase Negative, Urine RBC 0 SEEN, Urine WBC 0-5 SEEN, Ur Squamous Epith Cells 0-5 SEEN, Urine Bacteria 0 SEEN, Urine Mucus 0 SEEN 02/24/22 21:02: POC Glucose 203 H 02/25/22 06:24: POC Glucose 167 H 02/25/22 06:38: WBC 10.2, RBC 2.88 L, Hgb 8.5 L, Hct 26.8 L, MCV 93.1, MCH 29.5, MCHC 31.7 L D, RDW Std Deviation 48.5 H, RDW Coeff of Cait 14.3, Plt Count 280, MPV 10.9, Immature Gran % (Auto) 0.700, Neut % (Auto) 71.4 H, Lymph % (Auto) 11.7 L, Carver % (Auto) 9.7, Eos % (Auto) 5.8 H, Baso % (Auto) 0.7, Absolute Neuts (auto) 7.3, Absolute Lymphs (auto) 1.19, Nucleated RBC % 0 02/25/22 06:38: Sodium 139, Potassium 4.3, Chloride 107, Carbon Dioxide 25.0, A nion Gap 7, BUN 53 H, Creatinine 2.03 H, Estim Creat Clear Calc 30.79, Est GFR (MDRD) Af Amer 41 L, Est GFR (MDRD) Non-Af 34 L, BUN/Creatinine Ratio 26.1 H, Glucose 161 H, Calcium 8.8, TSH 0.91 Radiography Diagnostic Testing: Radiology Impression Brain CT 02/24/22 14:43 IMPRESSION: Chronic involutional changes of the brain. Chest X-Ray 02/24/22 15:16 IMPRESSION: Progressive infiltrates in both upper lobes more prominent on the left side. Left lower lobe infiltrate. Rhythm Strip Rhythm Strip: Sinus Rhythm Rate: 60 Ectopy: None Physical Exam Narrative Physical exam General: Alert, Oriented x3, Cooperative, shortness of breath little better HEENT: Atraumatic, PERRLA, EOMI, Normocephalic Oral: No Gingival or Mucosal Lesions/ Ulcerations Neck: Supple, No JVD, Negative Carotid Bruits Chest wall/lungs: Mild left-sided 4/5 anterior lateral rib tenderness present. Air entry severely diminished in both lungs. Bilateral wheezing and crepitations present. Mild hypoxia. Cardiovascular: Sinus rhythm, Normal S1, Normal S2, No murmurs Abdomen: Bowel Sounds Present, Soft, Non Tender, Non-Distended : No renal angle tenderness. No suprapubic tenderness. Extremities: 2+ pitting bilateral edema, Capillary Refill Less than 3 Seconds Skin: Mild bruise over left side of yazidi and chest wall. Musculoskeletal: No Tenderness to Palpation of Joints or Extremities ROM restricted over left upper and lower extremity. LUE 2/5, LLE 3+/5. Neurological: DTR 2+/4 and Symmetrical, left-sided weakness old stroke. Psych/Mental Status: Flat affect. Assessment & Plan Assessment/Plan (1) Fall: (2) Generalized weakness: (3) Physical debility: (4) Aspiration into airway: PLAN: Plan This is 81-year-old gentleman admitted for fall, generalized weakness more than normal baseline, could not stand up after fall and respiratory distress with chest tightness. Patient was admitted a week ago for syncope, hypoxia and, hyperkalemia and NABILA on CKD stage IIIa. 1. Mild chest tightness and respiratory distress probably secondary to pulmonar y edema/aspiration pneumonia: Patient is being admitted MedSurg floor. Chest x- ray image reviewed shows progressive inflamed both upper lobes worse than the previous week ago and left lower infiltrate. DuoNeb every 4 hourly first dose stat, Lasix 40 mg IV 1 dose and antibiotic started.Modified barium swallow on 02/18/2022 demonstrated mild oropharyngeal dysphagia. Diet recommendation regular texture with thin liquid with compensatory strategies, small bites small sips. speech therapy evaluation. Twelve-lead EKG shows normal sinus rhythm at 60 beats per. During previous admission patient was evaluated by cardiology for syncope and bradycardia. Outpatient ambulatory event monitor showed ventricular tachycardia but was normal during previous time at this time. 02/25: Lasix 40 mg IV 1 dose ordered along with a DuoNeb, IV antibiotic and a speech therapy to continue. Discussed causes with patient's daughter, his and respiratory therapist in detail. 2. Fall with debility, inability to stand up or ambulate, worse than baseline: PT and OT ordered. 02/25: Rib x-ray ordered as patient shortness of breath is doing better. Patient had generalized weakness in both lower extremity and whole body and therefore suspicion of a stroke although cannot completely rule out. My suspicion is low and discussed with the family. I think he cannot lay flat but also today therefore postponed MRI for tomorrow. 3. CKD stage G3b/4: It seems patient has worsening of kidney function for last 6 months. Current BUN/creatinine 60/1.96 and estimated creatinine clearance 28 mL/min. It might related to fluid shift.His creatinine was 1.23 in November 2021 but [place] worsening for last 1 month. Was discharged on 1.72 and now 1.96 but did not meet criteria for NABILA. Hold losartan. Lasix 1 dose for respiratory distress. Labs shows normal potassium magnesium and phosphorus. Monitor kidney function electrolytes. 02/26: Mild worsening of creatinine 2.03, BUN 53 but does not meet criteria for NABILA. I I told the patient's family that creatinine is stated to go high on diuretic. Electrolytes are in normal range. Coiler Operator consulted. 4. Suspected aspiration pneumonia: As mentioned above. Started on Unasyn. 5. Hypertension: Currently blood pressure is normotensive. Continue home medication except losartan and titrate as per blood pressure. 5. History of a stroke with left-sided weakness and oropharyngeal dysphagia: It seems patient is more weaker but is generalized. Unclear whether worsening of a stroke therefore will do MRI brain tomorrow AM. 6. Diabetes mellitus type 2 complicated with diabetic neuropathy and possible diabetic nephropathy: Accu-Cheks and cover with [place] sliding scale. 7. Multiple other comorbidities include dyslipidemia, chronic normocytic normochromic anemia, BPH, restless leg syndrome, glaucoma and anxiety and depression: Patient hemoglobin fluctuates between 9 to 10 g. Currently 8.7. Home medication reconciliation done. Total time of the visit including total time spent in counseling or coordination of care, (more than 50% of the total time, spent in obtaining medical inf ormation from nurses and other ancillary care providers,explaining to the patient about labs, imaging, diagnosis and management of active complex medical conditions), nephrology consult, review of labs and imaging is 50 minutes Living will/advanced directive/end of life care: Patient does have living will or advanced directive. During previous time patient was DNRCC arrest with no intubation. Patient power of sports attorney for health his and then next next daughter. After discussion of benefits/risks procedures involved with full code, DNR CC arrest and DNR CC, the patient, and daughter preferred full code and wanted full resuscitation in the beginning if he can sustain. She does not want to to be visit table and ventilator for long time. Patient and his do want to try artificial life support including intubation, tube feed, ventilator and/chest compression, central venous catheter, vasopressor and DC shock if needed in the beginning 02/25: As per the nursing staff, patient had DNRCC arrest as documented home and patient's daughter wanted to revisit on the CODE STATUS. I again discussed and explained all 3 forms of CODE STATUS full code, DNR CC arrest and DNR CC. His said that she will think on it and will tell us later. For the time being we will keep full code. Laboratory Results 02/24/22 15:00: WBC 10.4, RBC 2.78 L, Hgb 8.7 L, Hct 25.7 L, MCV 92.4, MCH 31.3, MCHC 33.9, RDW Std Deviation 48.8 H, RDW Coeff of Cait 14.3, Plt Count 260, MPV 10.7, Immature Gran % (Auto) 0.800, Neut % (Auto) 73.9 H, Lymph % (Auto) 10.5 L, Carver % (Auto) 9.9, Eos % (Auto) 4.4, Baso % (Auto) 0.5, Absolute Neuts (auto) 7.7, Absolute Lymphs (auto) 1.09, Nucleated RBC % 0 02/24/22 15:00: Sodium 138, Potassium 4.6, Chloride 107, Carbon Dioxide 25.0, Anion Gap 6, BUN 60 H, Creatinine 1.96 H, Estim Creat Clear Calc 28.11, Est GFR (MDRD) Af Amer 42 L, Est GFR (MDRD) Non-Af 35 L, BUN/Creatinine Ratio 30.6 H, Glucose 227 H, Calcium 8.7 02/24/22 15:00: Phosphorus 2.8, Magnesium 2.1 02/24/22 15:50: Urine Color Yellow, Urine Clarity Sl. Cloudy, Urine pH 6.0, Ur S pecific [place] 1.015, Urine Protein 100 H, Urine Glucose (UA) Normal, Urine Ketones Negative, Urine Occult Blood Negative, Urine Nitrite Negative, Urine Bilirubin Negative, Urine Urobilinogen Normal, Ur Leukocyte Esterase Negative, Urine RBC 0 SEEN, Urine WBC 0-5 SEEN, Ur Squamous Epith Cells 0-5 SEEN, Urine Bacteria 0 SEEN, Urine Mucus 0 SEEN Charges/Coding Visit Charges Inpatient E&M: 18281 Subs Hosp L3
--- NOTE | 2022-02-25 09:06 | VDLE_ITS ---
Reason For Study: Swelling RIGHT LEFT GSV is normal. GSV is normal. CFV is compressible, spontaneous, phasic, CFV is compressible, spontaneous, phasic, competent and demonstrates normal competent, and demonstrates normal augmentation. augmentation. FV is compressible, spontaneous, phasic, FV is compressible, spontaneous, phasic, competent and demonstrates normal competent and demonstrates normal augmentation. augmentation. POP V is compressible, spontaneous, phasic, POP V is compressible, spontaneous, phasic, competent and demonstrates normal competent and demonstrates normal augmentation. augmentation. T/P Trunk is compressible. T/P Trunk is compressible. PTV is compressible. PTV is compressible. RT PerV is compressible. LT PerV is compressible. Procedure This is a venous duplex using B-mode, color flow and spectral Doppler. Exam performed portable in patient room. A preliminary report was called and/or faxed to [facility]. VL/Venous Duplex US - [place] Extrem Interpretation Summary No evidence for acute deep venous thrombosis bilateral lower extremities with p atent and compressible bilateral great saphenous veins. Ordering Physician: Adiel Umanzor Referring Physician: Jennifer Watt M.D. Performed By: Tish Riddle RVT
--- NOTE | 2022-02-25 10:56 | PCM.CONS.R ---
Documented by User: YAN Crews 02/25/22 11:30 Assessment & Plan Assessment/Plan (1) NABILA (acute kidney injury): (2) Fall: (3) Generalized weakness: (4) Essential hypertension: (5) Aspiration pneumonia: PLAN: Plan Patient was admitted to the hospital yesterday after he presented to emergency room after he had fallen at home. Work-up in the emergency room concerning for possible aspiration pneumonia and NABILA as well as fall and debility. We were consulted for evaluation of acute kidney injury. Patient follows with Dr. Malik and has been seen for uncontrolled hypertension. In reviewing past creatinine trends baseline creatinine seems to be around 1.1 to 1.3 mg/dL as of November 2021. During last hospitalization from February 16 to February 20 creatinine peaked at 2.3 mg/dL and by time of hospital discharge on February 20 creatinine had improved to 1.7 mg/dL. He was discharged home on oral Levaquin. Blood pressures had also improved. In the emergency room yesterday creatinine 1.96 and today it is 2.03 mg/dL. Patient did receive Lasix IV 40 mg in the emergency room yesterday. His chest x-ray in the emergency room showed left lower lobe infiltrate, progressive infiltrates in both upper lobes more prominent on left side. He has on IV antibiotics. Urinalysis negative for blood, urine protein 100. Urine culture was obtained and is pending. Urine protein creatinine ratio 116 mg/g in December 2020. Nonoliguric NABILA likely multifactorial with history of fluctuating blood pressures, pneumonia and recent NABILA. We will obtain renal ultrasound to rule out obstructive uropathy contributing to NABILA. 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 Patient does have mild lower extremity edema but per and patient this seems to be chronic and current swelling has been normal for patient. Albumin is 2.9. Patient is being treated for pneumonia. Recommend holding Lasix for today. We will evaluate need for diuretics daily. Patient's BPs are acceptable with systolic blood pressures currently in the 150s on amlodipine, carvedilol, doxazosin and hydralazine. Losartan is on hold. Continue holding losartan for now. Further orders forthcoming as hospitalization evolves. Thank you for allowing us to participate in the care of Mr. Cloud. HPI Consult Data Date of Consult: 02/25/22 HPI Narrative HPI Narrative: SHAISTA CLOUD, is a 81 M with past medical history significant for hypertension, CVA, bilateral renal artery stenosis, diabetes mellitus type 2 who was brought to the emergency room yesterday for evaluation after he had fallen at home. Patient was admitted for fall, generalized weakness and suspected aspiration pneumonia. We were consulted for acute kidney injury. Patient and state they have been seen by Dr. Malik in past for her uncontrolled hypertension. He has also been seen and evaluated by vascular for history of AAA, PAD and uncontrolled hypertension, found to have right renal artery stenosis and underwent placement of right renal stent in July 2021. Recently per patient and blood pressures have been controlled. Patient currently denies any recent nausea or vomiting or diarrhea. Denies hematuria or dysuria but does complain of dribbling. Patient does take NSAIDs and had Advil couple days ago. Patient reports he feels his appetite has been fair. Patient was admitted to the hospital from 02/16-02/20, admitted for bradycardia and was initially hypotensive and he was admitted to ICU. During hospitalization blood pressures did improve and he had multiple adjustments of antihypertensives including holding clonidine and carvedilol. Carvedilol was eventually restarted, losartan added, and by time of discharge his blood pressure medications were hydralazine 100 mg 3 times daily, losartan 100 mg daily, continuing amlodipine 10 mg daily, doxazosin 8 mg daily and carvedilol 25 mg twice daily. During last hospitalization his creatinine peaked 2.34 mg/dL on 02/16 and by time of discharge on 02/20 improved to 1.72 mg/dL. In the emergency room yesterday creatinine 1.96 mg/dL and today his creatinine is 2.03 mg/dL. Patient did receive Lasix yesterday 40 mg IV and again ordered for today. 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 Recurrent inguinal hernia of right side without obstruction or gangrene Restless legs Right pontine CVA Right renal artery stenosis Skin lesion of face Type 2 diabetes mellitus Home Medications multivitamin,[id number] (Complete Multivitamin tablet) 1 tab PO QDAY supplement 03/03/17 [History Last Taken 02/23/22] aspirin 81 mg chewable tablet 81 mg PO BREAKFAST heart health 01/02/21 [History Last Taken 02/24/22] Handicap Placard #1 ea 02/12/21 [Rx Last Taken Unknown] pen needle, diabetic 32 gauge x 32 (BD Sanaz 2nd Gen Pen Needle) #50 ea 06/02/21 [Rx Last Taken Unknown] insulin glargine 100 unit/mL (3 mL) subcutaneous pen (Basaglar KwikPen U-100 Insulin) 16 unit subcut DAILY Diabetes 02/16/22 [History Last Taken 02/24/22] metformin 500 mg tablet 500 mg PO DAILY DIABETES 02/16/22 [History Last Taken 02/24/22] amlodipine 10 mg tablet 10 mg PO DAILY Check with primary doctor 02/18/22 [History Last Taken 02/24/22] Arthritis Pain Compound 0 click topical BID joint pain 02/24/22 [History Last Taken 02/23/22] carvedilol 25 mg tablet 25 mg PO BID heart 02/24/22 [History Last Taken 02/24/22] clopidogrel 75 mg tablet (Plavix) 75 mg PO DAILY blood thinner 02/24/22 [History Last Taken 02/23/22] doxazosin 8 mg tablet 8 mg PO QHS bph 02/24/22 [History Last Taken 02/23/22] ezetimibe 10 mg tablet (Zetia) 10 mg PO DAILY cholesterol 02/24/22 [History Last Taken 02/23/22] ferrous sulfate 325 mg (65 mg iron) capsule,extended release 65 mg PO DAILY supplement 02/24/22 [History Last Taken 02/23/22] gabapentin 100 mg capsule 100 mg PO BID pain 02/24/22 [History Last Taken 02/24/22] gabapentin 300 mg capsule 300 mg PO 2100 pain 02/24/22 [History Last Taken 02/23/22] hydralazine 50 mg tablet 100 mg PO TID bp 02/24/22 [History Last Taken 02/24/22] latanoprost 0.005 % eye drops 1 drp EACH EYE HS eyes 02/24/22 [History Last Taken 02/23/22] levofloxacin 750 mg tablet 750 mg PO Q48H Check with primary doctor 02/24/22 [History Last Taken 02/24/22] losartan 100 mg tablet 100 mg PO DAILY bp 02/24/22 [History Last Taken 02/24/22] metformin 1,000 mg tablet 1,000 mg PO QHS dm 02/24/22 [History Last Taken 02/23/22] pramipexole 0.125 mg tablet 0.125 mg PO QHS parkinsons 02/24/22 [History Last Taken 02/23/22] sertraline 50 mg tablet 50 mg PO DAILY mood 02/24/22 [History Last Taken 02/24/22] Allergy/AdvReac Type Severity Reaction Status Date / Time meloxicam [From Mobic] Allergy Intermediate itching Verified 02/24/22 13:22 pravastatin [From Pravachol] AdvReac Mild myalgia Verified 02/24/22 13:22 cholestyramine AdvReac hypoglycemi Verified 02/24/22 13:22 a Family History Mother Hypertension Cancer Father Heart disease Diabetes Surgical History History of cataract surgery History of herniorrhaphy History of lumbar laminectomy History of stent insertion of renal artery (08/05/21) Status post laser cataract surgery of left eye Social History household members: spouse and other details: Abigail is his 's name housing: house number of children: 2 current occupational status: retired and other details: worked for [employer] prior to retiring leisure activities: other Smoking Status: Never smoker Electronic Cigarette Use: not used alcohol intake: former substance use type: does not use what type of physical activity do you participate in: walking frequency: 1-2 times per week ROS ROS Narrative As in HPI and past medical history Physical Exam Narrative Alert and oriented x3, no apparent distress. Sitting up in recliner chair Lung sounds clear anteriorly, diminished breath sounds posterior bases. No rhonchi or rales appreciated S1, S2, RRR Abdomen soft, nontender Trace to 1+ pitting edema to bilateral lower legs, left greater than right Lab / Micro Data Result Diagrams: 02/25/22 06:38 02/26/22 05:46 Labs: Laboratory Results - last 24 hr 02/24/22 15:00: WBC 10.4, RBC 2.78 L, Hgb 8.7 L, Hct 25.7 L, MCV 92.4, MCH 31.3, MCHC 33.9, RDW Std Deviation 48.8 H, RDW Coeff of Cait 14.3, Plt Count 260, MPV 10.7, Immature Gran % (Auto) 0.800, Neut % (Auto) 73.9 H, Lymph % (Auto) 10.5 L, [place] % (Auto) 9.9, Eos % (Auto) 4.4, Baso % (Auto) 0.5, Absolute Neuts (auto) 7.7, Absolute Lymphs (auto) 1.09, Nucleated RBC % 0 02/24/22 15:00: Sodium 138, Potassium 4.6, Chloride 107, Carbon Dioxide 25.0, Anion Gap 6, BUN 60 H, Creatinine 1.96 H, Estim Creat Clear Calc 28.11, Est GFR (MDRD) Af Amer 42 L, Est GFR (MDRD) Non-Af 35 L, BUN/Creatinine Ratio 30.6 H, Glucose 227 H, Calcium 8.7 02/24/22 15:00: Phosphorus 2.8, Magnesium 2.1 02/24/22 15:50: Urine Color Yellow, Urine Clarity Sl. Cloudy, Urine pH 6.0, Ur Specific Pierce 1.015, Urine Protein 100 H, Urine Glucose (UA) Normal, Urine Ketones Negative, Urine Occult Blood Negative, Urine Nitrite Negative, Urine Bilirubin Negative, Urine Urobilinogen Normal, Ur Leukocyte Esterase Negative, Urine RBC 0 SEEN, Urine WBC 0-5 SEEN, Ur Squamous Epith Cells 0-5 SEEN, Urine Bacteria 0 SEEN, Urine Mucus 0 SEEN 02/24/22 21:02: POC Glucose 203 H 02/25/22 06:24: POC Glucose 167 H 02/25/22 06:38: WBC 10.2, RBC 2.88 L, Hgb 8.5 L, Hct 26.8 L, MCV 93.1, MCH 29.5, MCHC 31.7 L D, RDW Std Deviation 48.5 H, RDW Coeff of Cait 14.3, Plt Count 280, MPV 10.9, Immature Gran % (Auto) 0.700, Neut % (Auto) 71.4 H, Lymph % (Auto) 11.7 L, [place] % (Auto) 9.7, Eos % (Auto) 5.8 H, Baso % (Auto) 0.7, Absolute Neuts (auto) 7.3, Absolute Lymphs (auto) 1.19, Nucleated RBC % 0 02/25/22 06:38: Sodium 139, Potassium 4.3, Chloride 107, Carbon Dioxide 25.0, Anion Gap 7, BUN 53 H, Creatinine 2.03 H, Estim Creat Clear Calc 30.79, Est GFR (MDRD) Af Amer 41 L, Est GFR (MDRD) Non-Af 34 L, BUN/Creatinine Ratio 26.1 H, Glucose 161 H, Calcium 8.8, TSH 0.91 Rhythm Strip Rhythm Strip: Sinus Rhythm Rate: 60 Ectopy: None Radiology Impression Brain CT 02/24/22 14:43 IMPRESSION: Chronic involutional changes of the brain. Electronically Signed: Micah Murrieta MD at 15:34 EST , Chest X-Ray 02/24/22 15:16 IMPRESSION: Progressive infiltrates in both upper lobes more prominent on the left side. Left lower lobe infiltrate. Electronically Signed: Micah Murrieta MD at 15:30 EST , Documented by User: Dr. 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 Recurrent inguinal hernia of right side without obstruction or gangrene Restless legs Right pontine CVA Right renal artery stenosis Skin lesion of face Type 2 diabetes mellitus Home Medications multivitamin,[id number] (Complete Multivitamin tablet) 1 tab PO QDAY supplement 03/03/17 [History Last Taken 02/23/22] aspirin 81 mg chewable tablet 81 mg PO BREAKFAST heart health 01/02/21 [History Last Taken 02/24/22] Handicap Placard #1 ea 02/12/21 [Rx Last Taken Unknown] pen needle, diabetic 32 gauge x 5/32 (BD Sanaz 2nd Gen Pen Needle) #50 ea 06/02/21 [Rx Last Taken Unknown] insulin glargine 100 unit/mL (3 mL) subcutaneous pen (Basaglar KwikPen U-100 Insulin) 16 unit subcut DAILY Diabetes 02/16/22 [History Last Taken 02/24/22] metformin 500 mg tablet 500 mg PO DAILY DIABETES 02/16/22 [History Last Taken 02/24/22] amlodipine 10 mg tablet 10 mg PO DAILY Check with primary doctor 02/18/22 [History Last Taken 02/24/22] Arthritis Pain Compound 0 click topical BID joint pain 02/24/22 [History Last Taken 02/23/22] carvedilol 25 mg tablet 25 mg PO BID heart 02/24/22 [History Last Taken 02/24/22] clopidogrel 75 mg tablet (Plavix) 75 mg PO DAILY blood thinner 02/24/22 [History Last Taken 02/23/22] doxazosin 8 mg tablet 8 mg PO QHS bph 02/24/22 [History Last Taken 02/23/22] ezetimibe 10 mg tablet (Zetia) 10 mg PO DAILY cholesterol 02/24/22 [History Last Taken 02/23/22] ferrous sulfate 325 mg (65 mg iron) capsule,extended release 65 mg PO DAILY supplement 02/24/22 [History Last Taken 02/23/22] gabapentin 100 mg capsule 100 mg PO BID pain 02/24/22 [History Last Taken 02/24/22] gabapentin 300 mg capsule 300 mg PO 2100 pain 02/24/22 [History Last Taken 02/23/22] hydralazine 50 mg tablet 100 mg PO TID bp 02/24/22 [History Last Taken 02/24/22] latanoprost 0.005 % eye drops 1 drp EACH EYE HS eyes 02/24/22 [History Last Taken 02/23/22] levofloxacin 750 mg tablet 750 mg PO Q48H Check with primary doctor 02/24/22 [History Last Taken 02/24/22] losartan 100 mg tablet 100 mg PO DAILY bp 02/24/22 [History Last Taken 02/24/22] metformin 1,000 mg tablet 1,000 mg PO QHS dm 02/24/22 [History Last Taken 02/23/22] pramipexole 0.125 mg tablet 0.125 mg PO QHS parkinsons 02/24/22 [History Last Taken 02/23/22] sertraline 50 mg tablet 50 mg PO DAILY mood 02/24/22 [History Last Taken 02/24/22] Allergy/AdvReac Type Severity Reaction Status Date / Time meloxicam [From Mobic] Allergy Intermediate itching Verified 02/24/22 13:22 pravastatin [From Pravachol] AdvReac Mild myalgia Verified 02/24/22 13:22 cholestyramine AdvReac hypoglycemi Verified 02/24/22 13:22 a Family History Mother Hypertension Cancer Father Heart disease Diabetes Surgical History History of cataract surgery History of herniorrhaphy History of lumbar laminectomy History of stent insertion of renal artery (08/05/21) Status post laser cataract surgery of left eye Social History household members: spouse and other details: Abigail is his 's name housing: house number of children: 2 current occupational status: retired and other details: worked for [employer] prior to retiring leisure activities: other Smoking Status: Never smoker Electronic Cigarette Use: not used alcohol intake: former substance use type: does not use what type of physical activity do you participate in: walking frequency: 1-2 times per week Lab / Micro Data Result Diagrams: 02/25/22 06:38 02/26/22 05:46
--- NOTE | 2022-02-25 11:30 | US_ITS ---
STUDY: RENAL ULTRASOUND - COMPLETE REASON FOR EXAM: Male, 81 years old. NABILA TECHNIQUE: Ultrasound evaluation of the kidneys was performed with real-time and static fernández-scale imaging. COMPARISON: None. FINDINGS: There is a partially visualized right-sided pleural effusion. RIGHT KIDNEY: There is nonspecific lobulation of the right kidney. Normal location of the right kidney, which is normal in size. The right kidney measures 10.0 x 5.4 x 5.8 cm. There is mild diffuse thinning of the renal cortex. The renal cortex measures 0.9 cm. There is no right renal mass or cyst. There are no right renal calculi. There is no right hydronephrosis. DISTAL RIGHT URETER: There is non-visualization of the distal right ureter. There is no demonstrated right ureterovesical junction calculus. There is a visualized right ureteral jet. LEFT KIDNEY: There is nonspecific lobulation of the left kidney. Normal location of the left kidney, which is normal in size. The left kidney measures 10.9 x 4.4 x 4.6 cm. There is mild diffuse thinning of the renal cortex. The renal cortex measures 0.8 cm. And the upper pole of the left kidney there is a well circumscribed 2.4 x 2.5 x 2.5 cm Cm cyst with through transmission. There are no left renal calculi. There is no left hydronephrosis. DISTAL LEFT URETER: There is non-visualization of the distal left ureter. There is no demonstrated left ureterovesical junction calculus. There is a visualized left ureteral jet. BLADDER: The distended urinary bladder has a volume of 330 ml. . There is a normal wall thickness of the distended urinary bladder. The prostate measures 5.4 x 4.0 x 3.7 cm. There are no demonstrated bladder calculi. US/Kidney and Bladder IMPRESSION: Mild lobulation of the kidneys mild renal cortical thinning consider underlying medical renal disease. No hydronephrosis. Benign-appearing upper pole left renal cyst. Incidental visualization of a right pleural effusion. Mild prostate enlargement. Electronically Signed: Ronel Tilley MD at 17:18 EST ,
--- NOTE | 2022-02-25 13:31 | CASEMGMT ---
CHADD VIEIRA Readmission Note Previous Admission:? 02/16/22-02/20/22?? Diagnosis:? hypotension DC Disposition: Home with oxygen and outpt therapy script for PT, OT and ST. Current Admission? Current Diagnosis: fall, not able to stand Pt is a 81 M with multiple comorbidities and was brought to ER by squad for generalized weakness. Patient had fall on the 13th on left side, hit his chest and head. Pt states he was walking back from the bathroom with his walker and is unsure of what exactly happened. Pt dc'd with oxygen and pt reports using at home. Pt did not have time to go to the outpt therapy since last admission. Pt was supposed to have had follow up appt with PCP today. Pt and dtr in room who care for pt at home. Discussed pt therapy session today. Pt states that she wants to take pt home and if he is at risk of a fall, she will leave him in the bed. Pt dtr states that they cannot continue to care for pt at home and would like to see pt get some therapy in a facility prior to dc back home. Pt and family would like to see how he does tomorrow with therapy before they make a decision. CHADD VIEIRA to follow up tomorrow. Plan: [place]
--- NOTE | 2022-02-25 15:50 | RAD_ITS ---
STUDY: X-RAY - UNILATERAL RIBS ( LEFT ) WITH CHEST REASON FOR EXAM: Male, 81 years old. Left rib pain with contusion, fall TECHNIQUE - RIBS: 5 view(s) of the ribs. TECHNIQUE - CHEST: Single AP portable view of the chest. COMPARISON: February 24, 2022 chest x-ray FINDINGS - RIBS: Findings an age-indeterminate prior right side 6 rib fracture. There is no visualized left-sided rib fracture. FINDINGS - CHEST: There are bilateral upper lobe and right midlung zone infiltrates. There is trace blunting of the left costophrenic angle. There is no demonstrated pleural abnormality. Normal size heart. Normal mediastinum and arianne. Normal visualized pulmonary arteries. Normal visualized aortic arch and descending thoracic aorta. There are diffuse degenerative changes of the visualized thoracic spine. There is degenerative osteoarthritis of the bilateral shoulders. There is no demonstrated abnormality of the visualized soft tissue structures of the upper abdomen. RAD/Ribs Uni Min 3V w/PA Chest IMPRESSION: RIBS: Possible age-indeterminate fracture of the right sixth rib. No visualized left-sided rib fractures. CHEST: Multifocal infiltrates suspicious for pneumonia. Electronically Signed: Ronel Tilley MD at 17:26 EST Reading Location ID and State: [facility] / [place] Tel , Service support ,
[2022-02-25] MEDS: Latanoprost 0.005% 1 Bottle 1 DRP EACH EYE (21:49)
[2022-02-25] MEDS: Pramipexole Di-HCl 0.125 MG Tablet PO (21:50)
[2022-02-25] MEDS: Doxazosin 4 MG Tablet 8 MG PO (21:50)
[2022-02-25] MEDS: Gabapentin 300 MG Capsule PO (21:50)
[2022-02-25] MEDS: Ezetimibe 10 MG Tablet PO (22:06)
[2022-02-25 23:00] LABS: Bedside Glucose 254 mg/dL (74-106)
[2022-02-26] VITALS (17 sets, daily range): BP systolic 143–173; BP diastolic 47–69; PULSE 58–70; RESP 16–18; TEMP 36.4–37; O2SAT 90–94
[2022-02-26] MEDS: hydrALAZINE 50 MG Tablet PO ×3 (05:00→21:10)
[2022-02-26 06:35] LABS: Bedside Glucose 167 mg/dL (74-106)
[2022-02-26 06:41] LABS: Albumin, Serum 2.1 g/dL (3.2-5.0); BUN 45 mg/dL (7-18); BUN/Creat Ratio 27.1 RATIO (10-20); CPK Total, Creatine Kinase 22 U/L (39-308); Calcium,Total 8.9 mg/dL (8.5-10.1); Chloride 108 mmol/L (98-107); Creatinine, Serum 1.66 mg/dL (0.70-1.30); EST Glomerular Filtration Rate 42 mL/min (>60); Est Glom Filt Rate - Afr Amer 51 mL/min (>60); Estimated Creatinine Clearance 37.66 ml/min; Glucose 182 mg/dL (74-106); Phosphorus 3.7 mg/dL (2.5-4.9); Potassium 4.1 mmol/L (3.5-5.1); Sodium Level 140 mmol/L (136-145)
[2022-02-26] MEDS: Ipratropium/Albuterol Sulfate 3 ML AMPUL.NEB INHALATION ×3 (06:49→19:55)
[2022-02-26] MEDS: Clopidogrel Bisulfate 75 MG Tablet PO (08:11)
[2022-02-26] MEDS: Sertraline 50 MG Tablet PO (08:11)
[2022-02-26] MEDS: Aspirin 81 MG TAB.CHEW PO (08:11)
[2022-02-26] MEDS: Ferrous Sulfate 325 MG Tablet PO (08:11)
[2022-02-26] MEDS: Multivitamins,Ther W-Minerals Tablet 1 TABLET PO (08:11)
[2022-02-26] MEDS: Carvedilol 25 MG Tablet PO ×2 (08:12→16:53)
[2022-02-26] MEDS: amLODIPine 10 MG Tablet PO (08:12)
[2022-02-26] MEDS: Insulin Glargine-YFGN 100 UNIT/ML Pen 16 UNIT SC (08:13)
[2022-02-26] MEDS: Gabapentin 100 MG Capsule PO ×2 (10:23→16:53)
--- NOTE | 2022-02-26 10:23 | PCM.PN.REN ---
Documented by User: YAN Crews 02/26/22 10:35 Subjective Subjective Following for NABILA Patient is sitting in recliner chair. and daughter at bedside. Patient denies any complaints except for feeling tired. Denies any shortness of breath. Objective Data Objective Data Vital Signs: Vital Signs Temp Pulse Resp BP Pulse Ox O2 Del Method O2 Flow Rate 98.6 F 70 17 153/57 H 94 Nasal Cannula 2 02/26/22 08:05 02/26/22 08:55 02/26/22 08:05 02/26/22 08:05 02/26/22 08:05 02/26/22 08:55 02/26/22 08:55 FiO2 30 02/25/22 04:07 Oxygen Flow Rate (L/min) 2 Oxygen Delivery Method Nasal Cannula Weight: 85.4 kg Body Mass Index (BMI) 25.8 Intake & Output: Intake and Output for Last 24 Hours 02/24/22 02/25/22 02/26/22 23:59 23:59 23:59 Intake Total 1113.67 / 1113.67 896 / 896 Output Total 300 / 300 3700 / 3700 550 / 550 Balance 813.67 / 813.67 -2804 / -2804 -550 / -550 Lab / Micro Data Result Diagrams: 02/25/22 06:38 02/26/22 05:46 Labs: Laboratory Results - last 24 hr 02/25/22 21:49: POC Glucose 254 H 02/26/22 04:58: POC Glucose 167 H 02/26/22 05:46: Sodium 140, Potassium 4.1, Chloride 108 H, Carbon Dioxide 25.0, BUN 45 H, Creatinine 1.66 H, Estim Creat Clear Calc 37.66, Est GFR (MDRD) Af Amer 51 L, Est GFR (MDRD) Non-Af 42 L, BUN/Creatinine Ratio 27.1 H, Glucose 182 H, Calcium 8.9, Phosphorus 3.7, Total Creatine Kinase 22 L, Albumin 2.1 L Micro: Microbiology 02/24/22 15:50 Urine, Clean Catch Urine Culture - Preliminary Culture exhibits no growth. Radiography Diagnostic Testing: Radiology Impression Venous Doppler Study 02/25/22 09:06 Interpretation Summary No evidence for acute deep venous thrombosis bilateral lower extremities with patent and compressible bilateral great saphenous veins. Ordering Physician: Adiel Umanzor Referring Physician: Jennifer Watt M.D. Performed By: Tish Riddle RVT Renal Ultrasound 02/25/22 11:30 IMPRESSION: Mild lobulation of the kidneys mild renal cortical thinning consider underlying medical renal disease. No hydronephrosis. Benign-appearing upper pole left renal cyst. Incidental visualization of a right pleural effusion. Mild prostate enlargement. Electronically Signed: Ronel Tilley MD at 17:18 EST , Ribs w/Chest X-Ray 02/25/22 15:50 IMPRESSION: RIBS: Possible age-indeterminate fracture of the right sixth rib. No visualized left-sided rib fractures. CHEST: Multifocal infiltrates suspicious for pneumonia. Electronically Signed: Ronel Tilley MD at 17:26 EST , Rhythm Strip Rhythm Strip: Sinus Rhythm Rate: 60 Ectopy: None Physical Exam Narrative Alert and oriented x3, no apparent distress. Sitting up in recliner chair Lung sounds clear anteriorly, diminished breath sounds posterior bases. No rhonchi or rales appreciated S1, S2, RRR Abdomen soft, nontender Trace edema to bilateral lower legs, left greater than right Assessment & Plan Assessment/Plan (1) NABILA (acute kidney injury): (2) Fall: (3) Generalized weakness: (4) Essential hypertension: (5) Aspiration pneumonia: PLAN: Plan - Nonoliguric Acute kidney injury prerenal from infection, recent NABILA, possible component from overdiuresis. Urine output yesterday documented at 3.7 L. Renal ultrasound did not show any hydronephrosis or renal calculi, mild lobulation of kidneys mild renal cortical thinning consider underlying medical renal disease. Overall renal function is improving. Creatinine peaked at 2.03 mg/dL yesterday and today his creatinine is 1.66 mg/dL. There is no acute indication for DAY CARE AIDE. - Baseline creatinine ~ 1.1 to 1.3 mg/dL as of November 2021. During last hospitalization from February 16 to February 20 creatinine peaked at 2.3 mg/dL and by time of hospital discharge on February 20 creatinine had improved to 1.7 mg/dL. He was discharged home on oral Levaquin. Patient was receiving Lasix 40 mg IV. This was stopped yesterday (patient did not receive Lasix yesterday). We will continue to hold furosemide today. Encouraged patient to increase solute and fluid intake. Patient does have mild lower extremity edema but per and patient this seems to be chronic and current swelling has been normal for patient. Doppler negative for DVT. Albumin is 2.9. Urinalysis negative for blood, urine protein 100. Urine culture no growth. Urine protein creatinine ratio 116 mg/g in December 2020. -Aspiration pneumonia; chest x-ray in the emergency room showed left lower lobe infiltrate, progressive infiltrates in both upper lobes more prominent on left side. IV antibiotic, ampicillin. - history of HTN: Followed by Dr. Arredondo and also vascular team as patient has a history of AAA, PAD and right renal artery stenosis status post right renal artery stent placement July 2021. BPs are acceptable, continue on amlodipine, carvedilol, doxazosin and hydralazine. Losartan is on hold. Continue holding losartan for now. - Discussed with Dr. Umanzor. Documented by User: Dr. Carmela Ruffin MD 02/26/22 14:15 Objective Data Lab / Micro Data Result Diagrams: 02/25/22 06:38 02/26/22 05:46 Assessment & Plan Assessment/Plan (1) NABILA (acute kidney injury): (2) Fall: (3) Generalized weakness: (4) Essential hypertension: (5) Aspiration pneumonia: PLAN: Plan - Nonoliguric Acute kidney injury prerenal from infection, recent NABILA, possible component from overdiuresis. Urine output yesterday documented at 3.7 L. Renal ultrasound did not show any hydronephrosis or renal calculi, mild lobulation of kidneys mild renal cortical thinning consider underlying medical renal disease. Overall renal function is improving. Creatinine peaked at 2.03 mg/dL yesterday and today his creatinine is 1.66 mg/dL. There is no acute indication for DAY CARE AIDE. - Baseline creatinine ~ 1.1 to 1.3 mg/dL as of November 2021. During last hospitalization from February 16 to February 20 creatinine peaked at 2.3 mg/dL and by time of hospital discharge on February 20 creatinine had improved to 1.7 mg/dL. He was discharged home on oral Levaquin. Patient was receiving Lasix 40 mg IV. This was stopped yesterday (patient did not receive Lasix yesterday). We will continue to hold furosemide today. Encouraged patient to increase solute and fluid intake. Patient does have mild lower extremity edema but per and patient this seems to be chronic and current swelling has been normal for patient. Doppler negative for DVT. Albumin is 2.9. Urinalysis negative for blood, urine protein 100. Urine culture no growth. Urine protein creatinine ratio 116 mg/g in December 2020. -Aspiration pneumonia; chest x-ray in the emergency room showed left lower lobe infiltrate, progressive infiltrates in both upper lobes more prominent on left side. IV antibiotic, ampicillin. - history of HTN: Followed by Dr. Arredondo and also vascular team as patient has a history of AAA, PAD and right renal artery stenosis status post right renal artery stent placement July 2021. BPs are acceptable, continue on amlodipine, carvedilol, doxazosin and hydralazine. Losartan is on hold. Continue holding losartan for now. - Discussed with Dr. Umanzor. Nephrology attending addendum: The patient was personally seen and examined. Nurse practitioner's note reflects my medical decision making with my annotation below. The patient denies chest pain, shortness of breath, or nausea. He complains of fatigue. Vital signs and examination as above. There is trace edema of the lower extremities. Heart tones normal. Lungs are clear. Impression/Plan: The patient is a 81-year-old man with past history of hypertension, PAD with known bilateral renal artery stenosis status post right renal artery stent in July 2021, type 2 diabetes mellitus, and depression. The patient was admitted to the hospital on 02/24/2022 with generalized weakness and fall. The patient is also being treated for pulmonary edema/aspiration pneumonia. Nephrology is following the patient for hypertension and acute kidney injury on chronic kidney disease stage IIIa. Acute kidney injury on chronic kidney disease stage IIIa. The patient has baseline creatinine of 1.3-1.4 mg/dL (11/2021). CKD is likely due to nephrosclerosis/renovascular disease. NABILA is due to volume depletion. Serum creatinine peaked at 2.03 mg/dL on 02/25/2022. Renal function is better today with serum creatinine 1.66 mg/dL. Continue to hold losartan and furosemide for now. Continue to encourage oral solute/fluid intake. Will monitor renal function, volume status, electrolytes, and acid-base status closely with you. Current medications are reviewed and are appropriately dosed for his renal function. Hypertension. The patient has known bilateral renal artery stenosis with right renal artery stent placement in July 2021. The patient is on amlodipine 10 mg once per day, carvedilol 25 mg twice daily, doxazosin 8 mg nightly, and hydralazine 50 mg 3 times daily. BP is reasonably controlled. Once renal function returns to baseline, we can consider restarting ARB and diuretic. Nephrology plan will be discussed with Dr. Umanzor.
--- NOTE | 2022-02-26 11:02 | CASEMGMT ---
Social Work Pt has a living will and health care POA on file naming his Abigail. SW spoke with pt and he confirms that documents are up to date. Documents printed off and placed on pt chart. ROBERTO Dias
--- NOTE | 2022-02-26 11:11 | CASEMGMT ---
Addendum entered by Lizzeth Restrepo 02/26/22 12:10: Social Work TCU is able to accept pt. SW met with pt and and informed that TCU can accept. Pt and agreeable to admission to TCU at this time. SW updated TCU and requested precert be started at this time. SW explained to pt that precert will need to be obtained prior to discharge to TCU and this may take a few days to obtain. SW will update pt when precert obtained. Plan: TCU, pending precert ROBERTO Dias Original Note: Social Work SW met with pt, pt and daughter Jimena to discuss discharge plan. Pt stating he plans to go home. Pt initially states she wants pt to return home. SW spoke with pt about failed discharge last week including fall at home and hospital readmission. SW discussed option of SNF for short term rehab and SW explained insurance coverage and process. A list of SNF providers including quality and resource use data and consistent with the patient?s preferred geographic region, medical needs, and insurance network were provided from the [employer]. Pt daughter feels pt would benefit from short term placement and is inquiring about TCU. Family to discuss discharge plan, SW will contact TCU for bed availability and will then revisit pt later today with decision on discharge plan. ROBERTO Dias
--- NOTE | 2022-02-26 12:25 | NURSING ---
Dr jones was notified that blood glucose was 287, and meteformin and insulin have not been ordered.
[2022-02-26 12:30] LABS: Bedside Glucose 287 mg/dL (74-106)
--- NOTE | 2022-02-26 13:09 | PN.HOSP_ITS ---
Subjective Subjective Follow-up for fall, multiple acute conditions including dysphagia, aspiration and CKD Objective Data Objective Data Vital Signs: Vital Signs Temp Pulse Resp BP Pulse Ox O2 Del Method O2 Flow Rate 98.6 F 70 16 153/57 H 94 Nasal Cannula 2 02/26/22 08:05 02/26/22 12:46 02/26/22 12:46 02/26/22 08:05 02/26/22 08:05 02/26/22 08:55 02/26/22 08:55 FiO2 30 02/25/22 04:07 Oxygen Flow Rate (L/min) 2 Oxygen Delivery Method Nasal Cannula Weight: 188 lb 4.396 oz Body Mass Index (BMI) 25.8 Intake & Output: Intake and Output for Last 24 Hours 02/24/22 02/25/22 02/26/22 23:59 23:59 23:59 Intake Total 1113.67 / 1113.67 896 / 896 412 / 412 Output Total 300 / 300 3700 / 3700 550 / 550 Balance 813.67 / 813.67 -2804 / -2804 -138 / -138 Lab / Micro Data Result Diagrams: 02/25/22 06:38 02/26/22 05:46 Labs: Laboratory Results - last 24 hr 02/25/22 21:49: POC Glucose 254 H 02/26/22 04:58: POC Glucose 167 H 02/26/22 05:46: Sodium 140, Potassium 4.1, Chloride 108 H, Carbon Dioxide 25.0, BUN 45 H, Creatinine 1.66 H, Estim Creat Clear Calc 37.66, Est GFR (MDRD) Af Amer 51 L, Est GFR (MDRD) Non-Af 42 L, BUN/Creatinine Ratio 27.1 H, Glucose 182 H, Calcium 8.9, Phosphorus 3.7, Total Creatine Kinase 22 L, Albumin 2.1 L 02/26/22 12:05: POC Glucose 287 H Micro: Microbiology 02/24/22 15:50 Urine, Clean Catch Urine Culture - Preliminary Culture exhibits no growth. Radiography Diagnostic Testing: Radiology Impression Venous Doppler Study 02/25/22 09:06 Interpretation Summary No evidence for acute deep venous thrombosis bilateral lower extremities with patent and compressible bilateral great saphenous veins. Ordering Physician: Adiel Umanzor Referring Physician: Jennifer Watt M.D. Performed By: Tish Riddle RVT Renal Ultrasound 02/25/22 11:30 IMPRESSION: Mild lobulation of the kidneys mild renal cortical thinning consider underlying medical renal disease. No hydronephrosis. Benign-appearing upper pole left renal cyst. Incidental visualization of a right pleural effusion. Mild prostate enlargement. Electronically Signed: Ronel Tilley MD at 17:18 EST , Ribs w/Chest X-Ray 02/25/22 15:50 IMPRESSION: RIBS: Possible age-indeterminate fracture of the right sixth rib. No visualized left-sided rib fractures. CHEST: Multifocal infiltrates suspicious for pneumonia. Electronically Signed: Ronel Tilley MD at 17:26 EST , Rhythm Strip Rhythm Strip: Sinus Rhythm Rate: 60 Ectopy: None Physical Exam Narrative Patient has improvement in shortness of breath. Patient is out of bed to chair. Neuro exam done. Physical exam General: Alert, Oriented x3, Cooperative, shortness of breath little better HEENT: Atraumatic, PERRLA, EOMI, Normocephalic Oral: No Gingival or Mucosal Lesions/ Ulcerations Neck: Supple, No JVD, Negative Carotid Bruits Chest wall/lungs: Mild left-sided chest wall tenderness improving. Air entry severely diminished in both lungs. Bilateral wheezing has improved. Mild hypoxia. Cardiovascular: Sinus rhythm, Normal S1, Normal S2, No murmurs Abdomen: Bowel Sounds Present, Soft, Non Tender, Non-Distended : No renal angle tenderness. No suprapubic tenderness. Extremities: 2+ pitting bilateral edema, Capillary Refill Less than 3 Seconds Skin: Mild bruise over left side of yarsanism and chest wall. Musculoskeletal: No Tenderness to Palpation of Joints or Extremities ROM restricted over left upper and lower extremity. Neurological: DTR 2+/4 and Symmetrical, left-sided weakness old stroke. LUE 2/5, LLE 4/5. RUE 5/5 and RLE 5/5 at hips knees and ankle joints. No change in vision. Psych/Mental Status: Flat affect. Assessment & Plan Assessment/Plan (1) Fall: (2) Generalized weakness: (3) Physical debility: (4) Aspiration into airway: PLAN: Plan This is 81-year-old gentleman admitted for fall, generalized weakness more than normal baseline, could not stand up after fall and respiratory distress with chest tightness. Patient was admitted a week ago for syncope, hypoxia and, hyperkalemia and NABILA on CKD stage IIIa. 1. Mild chest tightness and respiratory distress probably secondary to pulmonary edema/aspiration pneumonia: Patient is being admitted [facility] floor. Chest x-ray image reviewed shows progressive inflamed both upper lobes worse than the previous week ago and left lower infiltrate. DuoNeb every 4 hourly first dose stat, Lasix 40 mg IV 1 dose and antibiotic started.Modified barium swallow on 02/18/2022 demonstrated mild oropharyngeal dysphagia. Diet recommendation regular texture with thin liquid with compensatory strategies, small bites small sips. speech therapy evaluation. Twelve-lead EKG shows normal sinus rhythm at 60 beats per. During previous admission patient was evaluated by cardiology for syncope and bradycardia. Outpatient ambulatory event monitor showed ventricular tachycardia but was normal during previous time at this time. 02/25: Lasix 40 mg IV 1 dose ordered along with a DuoNeb, IV antibiotic and a speech therapy to continue. Discussed causes with patient's daughter, his and respiratory therapist in detail. 02/26: Patient shortness of breath and air entry has improved. Continue breathing treatment as needed, incentive spirometry and Pep. 2. Fall with debility, inability to stand up or ambulate, worse than baseline: PT and OT ordered. 02/25: Rib x-ray ordered as patient shortness of breath is doing better. Patient had generalized weakness in both lower extremity and whole body and therefore suspicion of a stroke although cannot completely rule out. My suspicion is low and discussed with the family. I think he cannot lay flat but also today therefore postponed MRI for tomorrow. 3. CKD stage G3b/4: It seems patient has worsening of kidney function for last 6 months. Current BUN/creatinine 60/1.96 and estimated creatinine clearance 28 mL/min. It might related to fluid shift.His creatinine was 1.23 in November 2021 but K[place]one worsening for last 1 month. Was discharged on 1.72 and now 1.96 but did not meet criteria for NABILA. Hold losartan. Lasix 1 dose for respiratory distress. Labs shows normal potassium magnesium and phosphorus. Monitor kidney function electrolytes. 02/25: Mild worsening of creatinine 2.03, BUN 53 but does not meet criteria for NABILA. I I told the patient's family that creatinine is stated to go high on diuretic. Electrolytes are in normal range. Breakfast Attendant consulted. 02/26: Discussed with the supervisor coke handling. Does not need Lasix. Creatinine improved to 1.66. Urine culture did not show any growth. 4. Suspected aspiration pneumonia: As mentioned above. Started on Unasyn. 5. Hypertension: Currently blood pressure is normotensive. Continue home medication except losartan and titrate as per blood pressure. 5. History of a stroke with left-sided weakness and oropharyngeal dysphagia: It seems patient is more weaker but is generalized. Unclear whether worsening of a stroke therefore will do MRI brain tomorrow AM. 02/26: After complete neuro exam I do not think patient had new stroke. Patient himself does not feel any difference or more weakness, numbness or tingling, loss of vision or equilibrium more than his baseline. Therefore with family's agreement MRI ordered canceled. 6. Diabetes mellitus type 2 complicated with diabetic neuropathy and possible diabetic nephropathy: Accu-Cheks and cover with [place] sliding scale. 02/26: Glucose Accu-Chek is around 250s. 7. Multiple other comorbidities include dyslipidemia, chronic normocytic normochromic anemia, BPH, restless leg syndrome, glaucoma and anxiety and depression: Patient hemoglobin fluctuates between 9 to 10 g. Currently 8.7. Home medication reconciliation done. Total time of the visit including total time spent in counseling or coordination of care, (more than 50% of the total time, spent in obtaining medical information from nurses and other ancillary care providers,explaining to the patient about labs, imaging, diagnosis and management of active complex medical conditions), nephrology consult, review of labs and imaging is 50 minutes Living will/advanced directive/end of life care: Patient does have living will or advanced directive. During previous time patient was DNRCC arrest with no intubation. Patient power of workers compensation attorney for health his and then next next daughter. After discussion of benefits/risks procedures involved with full code, DNR CC arrest and DNR CC, the patient, and daughter preferred full code and wanted full resuscitation in the beginning if he can sustain. She does not want to to be visit table and ventilator for long time. Patient and his do want to try artificial life support including intubation, tube feed, ventilator and/chest compression, central venous catheter, vasopressor and DC shock if needed in the beginning 02/25: As per the nursing staff, patient had DNRCC arrest as documented home and patient's daughter wanted to revisit on the CODE STATUS. I again discussed and explained all 3 forms of CODE STATUS full code, DNR CC arrest and DNR CC. His said that she will think on it and will tell us later. For the time being we will keep full code. Microbiology Past 72 Hours 02/24/22 15:50 Urine, Clean Catch Urine Culture - Preliminary Culture exhibits no growth. Laboratory Results 02/25/22 21:49: POC Glucose 254 H 02/26/22 04:58: POC Glucose 167 H 02/26/22 05:46: Sodium 140, Potassium 4.1, Chloride 108 H, Carbon Dioxide 25.0, BUN 45 H, Creatinine 1.66 H, Estim Creat Clear Calc 37.66, Est GFR (MDRD) Af Amer 51 L, Est GFR (MDRD) Non-Af 42 L, BUN/Creatinine Ratio 27.1 H, Glucose 182 H, Calcium 8.9, Phosphorus 3.7, Total Creatine Kinase 22 L, Albumin 2.1 L 02/26/22 12:05: POC Glucose 287 H Charges/Coding Visit Charges Inpatient E&M: 61046 Subs Hosp L3
[2022-02-26] MEDS: Insulin Glargine-YFGN 100 UNIT/ML Pen 20 UNIT SC (14:17)
--- NOTE | 2022-02-26 16:04 | CASEMGMT ---
Social Work SW received message from TCU that precert has been obtained. Physician notified and pt will likely be ready for discharge over the weekend. SW met with pt and informed. With pt permission, phone call to pt and updated on above. Pt and agreeable to d/c plan. TCU, when medically ready. Precert expires at midnight on Tuesday ROBERTO Dias
[2022-02-26 16:26] LABS: Bedside Glucose 292 mg/dL (74-106)
[2022-02-26 17:15] LABS: Bedside Glucose 325 mg/dL (74-106)
--- NOTE | 2022-02-26 18:00 | NURSING ---
Dr Cardozo notified one touch now is 312.
[2022-02-26 18:15] LABS: Bedside Glucose 312 mg/dL (74-106)
[2022-02-26] MEDS: Gabapentin 300 MG Capsule PO (21:09)
[2022-02-26] MEDS: Pramipexole Di-HCl 0.125 MG Tablet PO (21:09)
[2022-02-26] MEDS: Ezetimibe 10 MG Tablet PO (21:09)
[2022-02-26] MEDS: Acetaminophen 325 MG Tablet 650 MG PO (21:09)
[2022-02-26] MEDS: Doxazosin 4 MG Tablet 8 MG PO (21:10)
[2022-02-26] MEDS: Latanoprost 0.005% 1 Bottle 1 DRP EACH EYE (21:10)
[2022-02-26] MEDS: Insulin Lispro 100 UNIT/ML INSULN.PEN SC (21:36)
[2022-02-26 23:50] LABS: Bedside Glucose 329 mg/dL (74-106)
[2022-02-27 04:00] VITALS: BP 151/50; PULSE 69; RESP 18; TEMP 36.6; O2SAT 94
[2022-02-27 04:31] VITALS: BP 151/50; PULSE 69
[2022-02-27] MEDS: hydrALAZINE 50 MG Tablet PO (04:31)
[2022-02-27] MEDS: Insulin Lispro 100 UNIT/ML INSULN.PEN SC ×2 (04:31→11:21)
[2022-02-27 06:26] LABS: Bedside Glucose 181 mg/dL (74-106)
[2022-02-27 07:34] VITALS: PULSE 66; RESP 20; O2SAT 90
[2022-02-27] MEDS: Ipratropium/Albuterol Sulfate 3 ML AMPUL.NEB INHALATION ×2 (07:34→14:29)
[2022-02-27 07:47] LABS: Absolute Lymphocyte Count 1.74 X10^3/uL (0.83-4.51); Basophil% 0.8 % (0-1); Eosinophil# 0.67 X10^3/uL; Eosinophils% 5.7 % (0-5); Hematocrit 27.9 % (40-54); Hemoglobin 8.9 g/dL (13.0-16.5); Lymphocyte # 1.74 X10^3/ul (0.83-4.51); Lymphocyte % 14.7 % (19-41); Mean Corp Hgb Conc 31.9 g/dL (32-36); Mean Corpuscular Hgb 29.6 pg (27.0-32.0); Mean Corpuscular Volume 92.7 fL (80-94); Mean Platelet Vol. 10.3 fl (6.2-12.0); Monocyte# 1.17 X10^3/uL; Monocyte% 9.9 % (0-10); NRBC Flagged by Analyzer 0 % (0-5); Neutrophil # 8.02 X10^3/uL (2.7-7.7); Platelet Count 363 K/mm3 (150-450); RBC Distribution Width CV 13.9 % (11.6-14.6); RBC Distribution Width SD 47.7 fl (35.1-43.9); Red Blood Count 3.01 M/mm3 (4.6-6.2); White Blood Count 11.8 K/mm3 (4.4-11.0)
[2022-02-27 08:07] LABS: ALB/GLOB Ratio 0.7 RATIO (0.9-2.4); AST(SGOT) 7 U/L (15-37); Alanine Aminotransfer ALT/SGPT 16 U/L (16-61); Albumin, Serum 2.3 g/dL (3.2-5.0); Alkaline Phosphatase 48 U/L (45-117); Anion Gap 7 (5-15); BUN 47 mg/dL (7-18); BUN/Creat Ratio 30.5 RATIO (10-20); Chloride 109 mmol/L (98-107); Creatinine, Serum 1.54 mg/dL (0.70-1.30); EST Glomerular Filtration Rate 46 mL/min (>60); Est Glom Filt Rate - Afr Amer 56 mL/min (>60); Estimated Creatinine Clearance 40.59 ml/min; Globulin 3.5 g/dL (2.2-4.2); Glucose 167 mg/dL (74-106); Potassium 4.1 mmol/L (3.5-5.1); Protein, Total 5.8 g/dL (6.4-8.2); Sodium Level 142 mmol/L (136-145)
[2022-02-27 08:20] VITALS: BP 160/61; PULSE 68; RESP 18; TEMP 36.4; O2SAT 95
[2022-02-27] MEDS: Clopidogrel Bisulfate 75 MG Tablet PO (08:22)
[2022-02-27] MEDS: Carvedilol 25 MG Tablet PO (08:22)
[2022-02-27] MEDS: amLODIPine 10 MG Tablet PO (08:22)
[2022-02-27] MEDS: Multivitamins,Ther W-Minerals Tablet 1 TABLET PO (08:22)
[2022-02-27] MEDS: Sertraline 50 MG Tablet PO (08:23)
[2022-02-27] MEDS: Ferrous Sulfate 325 MG Tablet PO (08:23)
[2022-02-27] MEDS: Aspirin 81 MG TAB.CHEW PO (08:23)
[2022-02-27] MEDS: Acetaminophen 325 MG Tablet 650 MG PO (08:26)
[2022-02-27] MEDS: Gabapentin 100 MG Capsule PO (08:27)
--- NOTE | 2022-02-27 10:39 | TREXTCAR_ITS ---
Diet Diet Order/Speech Therapy: 02/25/22 15:03 Diet: Consistent Carb - Calorie Controlled Food consistency:: Soft & Bite Sized Liquid Consistency:: Regular/Thin Dietary Modifications:: Sodium Restricted Type of Dietary Supplement:: Van Ensure Pud w/lunch Is pt able to select menu?: No Diet Comments: NO STRAWS,Small Bites/Small Sips-effortful swallows w/ liquids; van mag cup How many daily calories?: 1800 calorie Routine Orders/Code Status Suppository Type: Dulcolax 10mg Suppository Frequency: Daily PRN Code Status: Full Code Wound(s) L side: Wound Type: Abrasion Therapies Weight Bearing: Weight bearing as tolerated Extremity Affected:: Bilateral Lower Physical Therapy: Eval and Treat Occupational Therapy: Eval and Treat Speech Therapy: Eval and Treat Problem/Diagnosis (1) NABILA (acute kidney injury): Status: Acute Code(s): N17.9 - Acute kidney failure, unspecified (2) Fall: Status: Acute Code(s): W19.XXXA - Unspecified fall, initial encounter (3) Generalized weakness: Status: Acute Code(s): R53.1 - Weakness (4) Essential hypertension: Status: Chronic Code(s): I10 - Essential (primary) hypertension (5) Aspiration pneumonia: Status: Acute Code(s): J69.0 - Pneumonitis due to inhalation of food and vomit Plan This is 81-year-old gentleman admitted for fall, generalized weakness more than normal baseline, could not stand up after fall and respiratory distress with chest tightness. Patient was admitted a week ago for syncope, hypoxia and, hyperkalemia and NABILA on CKD stage IIIa. 1. Mild chest tightness and respiratory distress probably secondary to pulmonary edema/aspiration pneumonia: Patient is being admitted MedSurg floor. Chest x-ray image reviewed shows progressive inflamed both upper lobes worse than the previous week ago and left lower infiltrate. DuoNeb every 4 hourly first dose stat, Lasix 40 mg IV 1 dose and antibiotic started.Modified barium swallow on 02/18/2022 demonstrated mild oropharyngeal dysphagia. Diet recommendation regular texture with thin liquid with compensatory strategies, small bites small sips. speech therapy evaluation. Twelve-lead EKG shows normal sinus rhythm at 60 beats per. During previous admission patient was evaluated by cardiology for syncope and bradycardia. Outpatient ambulatory event monitor showed ventricular tachycardia but was normal during previous time at this time. 02/25: Lasix 40 mg IV 1 dose ordered along with a DuoNeb, IV antibiotic and a speech therapy to continue. Discussed causes with patient's daughter, his and respiratory therapist in detail. 02/26: Patient shortness of breath and air entry has improved. Continue breathing treatment as needed, incentive spirometry and Pep. 2. Fall with debility, inability to stand up or ambulate, worse than baseline: PT and OT ordered. 02/25: Rib x-ray ordered as patient shortness of breath is doing better. Patient had generalized weakness in both lower extremity and whole body and therefore suspicion of a stroke although cannot completely rule out. My suspicion is low and discussed with the family. I think he cannot lay flat but also today therefore postponed MRI for tomorrow. 3. CKD stage G3b/4: It seems patient has worsening of kidney function for last 6 months. Current BUN/creatinine 60/1.96 and estimated creatinine clearance 28 mL/min. It might related to fluid shift.His creatinine was 1.23 in November 2021 but Kepone worsening for last 1 month. Was discharged on 1.72 and now 1.96 but did not meet criteria for NABILA. Hold losartan. Lasix 1 dose for respiratory distress. Labs shows normal potassium magnesium and phosphorus. Monitor kidney function electrolytes. 02/25: Mild worsening of creatinine 2.03, BUN 53 but does not meet criteria for NABILA. I I told the patient's family that creatinine is stated to go high on diuretic. Electrolytes are in normal range. Assisted Living Coordinator consulted. 02/26: Discussed with the credit collections rep. Does not need Lasix. Creatinine improved to 1.66. Urine culture did not show any growth. 4. Suspected aspiration pneumonia: As mentioned above. Started on Unasyn. 5. Hypertension: Currently blood pressure is normotensive. Continue home medication except losartan and titrate as per blood pressure. 5. History of a stroke with left-sided weakness and oropharyngeal dysphagia: It seems patient is more weaker but is generalized. Unclear whether worsening of a stroke therefore will do MRI brain tomorrow AM. 02/26: After complete neuro exam I do not think patient had new stroke. Patient himself does not feel any difference or more weakness, numbness or tingling, loss of vision or equilibrium more than his baseline. Therefore with family's agreement MRI ordered canceled. 6. Diabetes mellitus type 2 complicated with diabetic neuropathy and possible diabetic nephropathy: Accu-Cheks and cover with [place] sliding scale. 02/26: Glucose Accu-Chek is around 250s. 7. Multiple other comorbidities include dyslipidemia, chronic normocytic normochromic anemia, BPH, restless leg syndrome, glaucoma and anxiety and depression: Patient hemoglobin fluctuates between 9 to 10 g. Currently 8.7. Home medication reconciliation done. Total time of the visit including total time spent in counseling or coordination of care, (more than 50% of the total time, spent in obtaining medical information from nurses and other ancillary care providers,explaining to the patient about labs, imaging, diagnosis and management of active complex medical conditions), nephrology consult, review of labs and imaging is 50 minutes Living will/advanced directive/end of life care: Patient does have living will or advanced directive. During previous time patient was DNRCC arrest with no intubation. Patient power of tax attorney for health his and then next next daughter. After discussion of benefits/risks procedures involved with full code, DNR CC arrest and DNR CC, the patient, and daughter preferred full code and wanted full resuscitation in the beginning if he can sustain. She does not want to to be visit table and ventilator for long time. Patient and his do want to try artificial life support including intubation, tube feed, ventilator and/chest compression, central venous catheter, vasopressor and DC shock if needed in the beginning 02/25: As per the nursing staff, patient had DNRCC arrest as documented home and patient's daughter wanted to revisit on the CODE STATUS. I again discussed and explained all 3 forms of CODE STATUS full code, DNR CC arrest and DNR CC. His said that she will think on it and will tell us later. For the time being we will keep full code. Microbiology Past 72 Hours 02/24/22 15:50 Urine, Clean Catch Urine Culture - Preliminary Culture exhibits no growth. Laboratory Results 02/25/22 21:49: POC Glucose 254 H 02/26/22 04:58: POC Glucose 167 H 02/26/22 05:46: Sodium 140, Potassium 4.1, Chloride 108 H, Carbon Dioxide 25.0, BUN 45 H, Creatinine 1.66 H, Estim Creat Clear Calc 37.66, Est GFR (MDRD) Af Amer 51 L, Est GFR (MDRD) Non-Af 42 L, BUN/Creatinine Ratio 27.1 H, Glucose 182 H, Calcium 8.9, Phosphorus 3.7, Total Creatine Kinase 22 L, Albumin 2.1 L 02/26/22 12:05: POC Glucose 287 H Allergies/Procedures Done in Hospital Allergies meloxicam [From Mobic] Allergy (Intermediate, Verified 02/24/22 13:22) itching pravastatin [From Pravachol] Adverse Reaction (Mild, Verified 02/24/22 13:22) myalgia cholestyramine Adverse Reaction (Verified 02/24/22 13:22) hypoglycemia Type of Care/Length of Stay Estimated LOS: Convalescent Care Less Than 30 days Type of Care Needed: Skilled Rehab Potential: Good Prognosis: Good Additional Orders/Day of Discharge Day of Discharge: 02/27/22 Dietary and Speech Recommendations Dietitian Recommendations/Changes: Will change diet to 1800 calorie consistent carbohydrate; sodium-restricted with consistency as per COMPUTER SUPPORT SPECIALIST INSTRUCTOR. Will add vanilla ensure pudding w/ lunch and vanilla magic cup w/ dinner. Discharge Plan Admission Admit Date/Time: 02/24/22 16:01 Primary Reason for Your Visit: Fall with debility, aspiration Attending Provider: Adiel Umanzor Primary Care Provider: Jennifer Watt Consulting Providers: Carmela Ruffin Discharge Orders/Prescriptions Prescriptions: New hydralazine 50 mg Tablet 75 mg PO TID Qty: 0 0RF Rx Instructions: Hold for SBP less than 130 mmHg insulin glargine-yfgn 100 unit/mL (3 mL) Insulin Pen 20 unit subcut DAILY Qty: 0 0RF Rx Instructions: Hold if glucose less than 130 mg/dl acetaminophen [Tylenol] 325 mg Tablet 650 mg PO Q6H PRN PRN (Reason: Pain 1-10 Or Fever>100.7) Qty: 0 0RF ipratropium-albuterol 0.5 mg-3 mg(2.5 mg base)/3 mL Solution For Nebulization 3 ml inhalation Q6HWA.RT PRN (Reason: SOB) Qty: 0 0RF sennosides-docusate sodium [Stool Softener-Stimulant Laxat] 8.6-50 mg Tablet 2 tab PO BID PRN PRN (Reason: Constipation) Qty: 0 0RF losartan 25 mg Tablet 25 mg PO DAILY Qty: 0 0RF Rx Instructions: Uptitrate as tolerated by kidney function amoxicillin-pot clavulanate [Augmentin] 500-125 mg tablet 1 tab PO BID 4 Days Qty: 8 0RF insulin lispro [Humalog KwikPen Insulin] 100 unit/mL Insulin Pen See Protocol subcut ACHS Qty: 0 0RF Protocol: 3. Sliding Scale Insulin Med Dosing Condition: 150-189 mg/dl = 1 unit Condition: 190-229 mg/dl = 2 units Condition: 230-269 mg/dl = 3 units Condition: 270-309 mg/dl = 4 units Condition: 310-349 mg/dl = 5 units Condition: 350-399 mg/dl = 6 units Condition: 400-449 mg/dl = 7 units Condition: Greater than 449 call physician Protocol Text: - Use for Total Daily Dose of Insulin 37-55 units - Obsese, infected, or steroid patients MEDIUM DOSING ALGORITHIM Continued multivitamin,dv-ubap-ntkngzpa tablet tablet 1 tab PO QDAY aspirin 81 mg tablet,chewable 81 mg PO BREAKFAST insulin glargine [Basaglar KwikPen U-100 Insulin] 100 unit/mL (3 mL) insulin pen 16 unit SUBCUT DAILY ferrous sulfate 325 mg (65 mg iron) Capsule, Extended Release 65 mg PO DAILY Arthritis Pain Compound 0 click topical BID latanoprost 0.005 % drops 1 drp EACH EYE HS carvedilol 25 mg tablet 25 mg PO BID Rx Instructions: must administer with a meal/food clopidogrel [Plavix] 75 mg tablet 75 mg PO DAILY doxazosin 8 mg tablet 8 mg PO QHS pramipexole 0.125 mg tablet 0.125 mg PO QHS gabapentin 300 mg capsule 300 mg PO 2100 gabapentin 100 mg capsule 100 mg PO BID sertraline 50 mg tablet 50 mg PO DAILY ezetimibe [Zetia] 10 mg tablet 10 mg PO DAILY Rx Instructions: take at bedtime (DME) Handicap Placard See Rx Instructions .Route .MEDSUPPLY Qty: 1 0RF Rx Instructions: Length of time: 5 years (DME) pen needle, diabetic [BD Sanaz 2nd Gen Pen Needle] 32 gauge x 5/32 needle See Rx Instructions .ROUTE .MEDSUPPLY Qty: 50 2RF Rx Instructions: use once daily to adminster insulin as directed. Changed amlodipine 10 mg Tablet 5 mg PO DAILY Qty: 5 0RF Held metformin 500 mg tablet 500 mg PO DAILY Hold Instructions: Hold until creatinine clearance more than 50 ml/min Discontinued metformin 1,000 mg Tablet 1,000 mg PO QHS hydralazine 50 mg tablet 100 mg PO TID levofloxacin 750 mg tablet 750 mg PO Q48H Rx Instructions: Take only every other day losartan 100 mg tablet 100 mg PO DAILY Referrals / Follow Up: Jennifer Watt MD [Primary Care Provider] - Carmela Ruffin MD [Med Staff - Consulting] - Within 2 Weeks Disposition Disposition (needs filled in before D/C Order can be placed): Group Home Facility
[2022-02-27] MEDS: Losartan Potassium 25 MG Tablet PO (11:27)
[2022-02-27 12:11] LABS: Bedside Glucose 254 mg/dL (74-106)
--- NOTE | 2022-02-27 12:54 | PCM.DC.SUM ---
Providers Date of Admission: 02/24/22 Date of Discharge: 02/27/22 Primary Care Physician: Dr. Jennifer Watt MD Consultations 02/25/22 10:04 Consult: Nephrology Routine Consulting Provider: Carmela Ruffin Reason for Consult: CKD G3B/4, on diuretic EMERGENT Consult: No MD Notified: Yes Date Notified: 02/25/22 Time Notified: 10:04 Method of Notification: Text Reason For Visit: FALL, NOT ABLE TO STAND Diagnosis Discharge Diagnosis (1) NABILA (acute kidney injury): Status: Acute Code(s): N17.9 - Acute kidney failure, unspecified (2) Fall: Status: Acute Code(s): W19.XXXA - Unspecified fall, initial encounter (3) Generalized weakness: Status: Acute Code(s): R53.1 - Weakness (4) Essential hypertension: Status: Chronic Code(s): I10 - Essential (primary) hypertension (5) Aspiration pneumonia: Status: Acute Code(s): J69.0 - Pneumonitis due to inhalation of food and vomit Plan This is 81-year-old gentleman admitted for fall, generalized weakness more than normal baseline, could not stand up after fall and respiratory distress with chest tightness. Patient was admitted a week ago for syncope, hypoxia and, hyperkalemia and NABILA on CKD stage IIIa. 1. Mild chest tightness and respiratory distress probably secondary to pulmonary edema/aspiration pneumonia: Patient is being admitted MedSurg floor. Chest x-ray image reviewed shows progressive inflamed both upper lobes worse than the previous week ago and left lower infiltrate. DuoNeb every 4 hourly first dose stat, Lasix 40 mg IV 1 dose and antibiotic started.Modified barium swallow on 02/18/2022 demonstrated mild oropharyngeal dysphagia. Diet recommendation regular texture with thin liquid with compensatory strategies, small bites small sips. speech therapy evaluation. Twelve-lead EKG shows normal sinus rhythm at 60 beats per. During previous admission patient was evaluated by cardiology for syncope and bradycardia. Outpatient ambulatory event monitor showed ventricular tachycardia but was normal during previous time at this time. 02/25: Lasix 40 mg IV 1 dose ordered along with a DuoNeb, IV antibiotic and a speech therapy to continue. Discussed causes with patient's daughter, his and respiratory therapist in detail. 02/26: Patient shortness of breath and air entry has improved. Continue breathing treatment as needed, incentive spirometry and Pep. 02/27: Patient shortness of breath and chest pain has much improved. Advised to continue incentive spirometry and Pep and DuoNeb as needed. 2. Fall with debility, inability to stand up or ambulate, worse than baseline: PT and OT ordered. 02/25: Rib x-ray ordered as patient shortness of breath is doing better. Patient had generalized weakness in both lower extremity and whole body and therefore suspicion of a stroke although cannot completely rule out. My suspicion is low and discussed with the family. I think he cannot lay flat but also today therefore postponed MRI for tomorrow. 02/26: Patient is being discharged to TCU. MRI was canceled yesterday as clinically does not show any features of new stroke or worsening of baseline neurological deficit 3. CKD stage G3b/4: It seems patient has worsening of kidney function for last 6 months. Current BUN/creatinine 60/1.96 and estimated creatinine clearance 28 mL/min. It might related to fluid shift.His creatinine was 1.23 in November 2021 but Kepone worsening for last 1 month. Was discharged on 1.72 and now 1.96 but did not meet criteria for NABILA. Hold losartan. Lasix 1 dose for respiratory distress. Labs shows normal potassium magnesium and phosphorus. Monitor kidney function electrolytes. 02/25: Mild worsening of creatinine 2.03, BUN 53 but does not meet criteria for NABILA. I I told the patient's family that creatinine is stated to go high on diuretic. Electrolytes are in normal range. [employer] consulted. 02/26: Discussed with the head of marketing adometry. Does not need Lasix. Creatinine improved to 1.66. Urine culture did not show any growth. 02/27: Further improvement in creatinine. Low-dose losartan 25 mg daily started for CKD and hypertension. Amlodipine dose decreased 5 mg as patient had leg edema. Hydralazine dose decreased to 75 mg 3 times daily. 4. Suspected aspiration pneumonia: As mentioned above. Started on Unasyn. 5. Hypertension: Currently blood pressure is normotensive. Continue home medication except losartan and titrate as per blood pressure. 5. History of a stroke with left-sided weakness and oropharyngeal dysphagia: It seems patient is more weaker but is generalized. Unclear whether worsening of a stroke therefore will do MRI brain tomorrow AM. 12/16: After complete neuro exam I do not think patient had new stroke. Patient himself does not feel any difference or more weakness, numbness or tingling, loss of vision or equilibrium more than his baseline. Therefore with family's agreement MRI ordered canceled. 6. Diabetes mellitus type 2 complicated with diabetic neuropathy and possible diabetic nephropathy: Accu-Cheks and cover with [place] sliding scale. 02/26: Glucose Accu-Chek is around 250s. 02/27 glucose Accu-Cheks are better 7. Multiple other comorbidities include dyslipidemia, chronic normocytic normochromic anemia, BPH, restless leg syndrome, glaucoma and anxiety and depression: Patient hemoglobin fluctuates between 9 to 10 g. Currently 8.7. Home medication reconciliation done. Discharge medication reconciliation done. Discharge follow-up instructions completed. Discharge process discussed with the patient and all questions were answered to patient's satisfaction. Discharge process discussed with the patient and his near the bedside Total time spent, exact 35 minutes on discharge meds reconciliation, examination, coordination of care with nurses and ancillary staff, review of imaging and blood test and discussion with the patient on follow-up instructions. Living will/advanced directive/end of life care: Patient does have living will or advanced directive. During previous time patient was DNRCC arrest with no intubation. Patient power of workers compensation defense attorney for health his and then next next daughter. After discussion of benefits/risks procedures involved with full code, DNR CC arrest and DNR CC, the patient, and daughter preferred full code and wanted full resuscitation in the beginning if he can sustain. She does not want to to be visit table and ventilator for long time. Patient and his do want to try artificial life support including intubation, tube feed, ventilator and/chest compression, central venous catheter, vasopressor and DC shock if needed in the beginning 02/25: As per the nursing staff, patient had DNRCC arrest as documented home and patient's daughter wanted to revisit on the CODE STATUS. I again discussed and explained all 3 forms of CODE STATUS full code, DNR CC arrest and DNR CC. His said that she will think on it and will tell us later. For the time being we will keep full code. Microbiology Past 72 Hours 02/24/22 15:50 Urine, Clean Catch Urine Culture - Preliminary Culture exhibits no growth. Laboratory Results 02/25/22 21:49: POC Glucose 254 H 02/26/22 04:58: POC Glucose 167 H 02/26/22 05:46: Sodium 140, Potassium 4.1, Chloride 108 H, Carbon Dioxide 25.0, BUN 45 H, Creatinine 1.66 H, Estim Creat Clear Calc 37.66, Est GFR (MDRD) Af Amer 51 L, Est GFR (MDRD) Non-Af 42 L, BUN/Creatinine Ratio 27.1 H, Glucose 182 H, Calcium 8.9, Phosphorus 3.7, Total Creatine Kinase 22 L, Albumin 2.1 L 02/26/22 12:05: POC Glucose 287 H Medications at Discharge Home Medications multivitamin,wb-kepj-yygqumsp (Complete Multivitamin tablet) 1 tab PO QDAY supplement 03/03/17 aspirin 81 mg chewable tablet 81 mg PO BREAKFAST heart health 01/02/21 Handicap Placard #1 ea 02/12/21 pen needle, diabetic 32 gauge x 5/32 (BD Sanaz 2nd Gen Pen Needle) #50 ea 06/02/21 insulin glargine 100 unit/mL (3 mL) subcutaneous pen ([employer] KwikPen U-100 Insulin) 16 unit subcut DAILY Diabetes 02/16/22 metformin 500 mg tablet 500 mg PO DAILY DIABETES 02/16/22 Arthritis Pain Compound 0 click topical BID joint pain 02/24/22 carvedilol 25 mg tablet 25 mg PO BID heart 02/24/22 clopidogrel 75 mg tablet (Plavix) 75 mg PO DAILY blood thinner 02/24/22 doxazosin 8 mg tablet 8 mg PO QHS bph 02/24/22 ezetimibe 10 mg tablet (Zetia) 10 mg PO DAILY cholesterol 02/24/22 ferrous sulfate 325 mg (65 mg iron) capsule,extended release 65 mg PO DAILY supplement 02/24/22 gabapentin 100 mg capsule 100 mg PO BID pain 02/24/22 gabapentin 300 mg capsule 300 mg PO 2100 pain 02/24/22 latanoprost 0.005 % eye drops 1 drp EACH EYE HS eyes 02/24/22 pramipexole 0.125 mg tablet 0.125 mg PO QHS parkinsons 02/24/22 sertraline 50 mg tablet 50 mg PO DAILY mood 02/24/22 acetaminophen 325 mg tablet (Tylenol) 650 mg PO Q6H PRN PRN Pain 1-10 Or Fever>100.7 #0 tabs 02/27/22 amlodipine 10 mg tablet 5 mg PO DAILY Check with primary doctor #5 tabs 02/27/22 amoxicillin 500 mg-potassium clavulanate 125 mg tablet (Augmentin) 1 tab PO BID 4 days #8 tabs 02/27/22 hydralazine 50 mg tablet 75 mg PO TID #0 tabs 02/27/22 insulin glargine-yfgn 100 unit/mL (3 mL) subcutaneous pen 20 unit (0.2 mL) subcut DAILY #0 mL 02/27/22 insulin lispro 100 unit/mL subcutaneous pen (Humalog KwikPen (U-100) Insulin) See Protocol subcut ACHS #0 mL 02/27/22 ipratropium 0.5 mg-albuterol 3 mg (2.5 mg base)/3 mL nebulization soln 3 ml inhalation Q6HWA.RT PRN SOB #0 mL 02/27/22 losartan 25 mg tablet 25 mg PO DAILY #0 tabs 02/27/22 sennosides 8.6 mg-docusate sodium 50 mg tablet (Stool Softener-Stimulant Laxative) 2 tab PO BID PRN PRN Constipation #0 tabs 02/27/22 Physical Exam Narrative Patient has further improvement in shortness of breath. Patient is out of bed to chair. Physical exam General: Alert, Oriented x3, Cooperative, shortness of breath little better HEENT: Atraumatic, PERRLA, EOMI, Normocephalic Oral: No Gingival or Mucosal Lesions/ Ulcerations Neck: Supple, No JVD, Negative Carotid Bruits Chest wall/lungs: Chest wall pain resolved. Air entry severely diminished in both lungs. No wheezing mild hypoxia. Cardiovascular: Sinus rhythm, Normal S1, Normal S2, No murmurs Abdomen: Bowel Sounds Present, Soft, Non Tender, Non-Distended : No renal angle tenderness. No suprapubic tenderness. Extremities: 2+ pitting bilateral edema, Capillary Refill Less than 3 Seconds Skin: Mild bruise over left side of jehovah's witness and chest wall. Musculoskeletal: No Tenderness to Palpation of Joints or Extremities ROM restricted over left upper and lower extremity. Neurological: DTR 2+/4 and Symmetrical, left-sided weakness old stroke. LUE 2/5, LLE 4/5. RUE 5/5 and RLE 5/5 at hips knees and ankle joints. No change in vision. Psych/Mental Status: Flat affect. Weight / BMI Weight Weight: 190 lb 11.2 oz Body Mass Index (BMI) 25.8 ABG / Lab / Microbiology Data Result Diagrams: 02/27/22 07:10 02/27/22 07:10 Laboratory: Laboratory Results - last 24 hr 02/26/22 16:02: POC Glucose 292 H 02/26/22 16:55: POC Glucose 325 H 02/26/22 17:55: POC Glucose 312 H 02/26/22 21:08: POC Glucose 329 H 02/27/22 04:30: POC Glucose 181 H 02/27/22 07:10: Sodium 142, Potassium 4.1, Chloride 109 H, Carbon Dioxide 26.0, Anion Gap 7, BUN 47 H, Creatinine 1.54 H, Estim Creat Clear Calc 40.59, Est GFR (MDRD) Af Amer 56 L, Est GFR (MDRD) Non-Af 46 L, BUN/Creatinine Ratio 30.5 H, Glucose 167 H, Calcium 9.0, Total Bilirubin 0.40, AST 7 L, ALT 16, Alkaline Phosphatase 48, Total Protein 5.8 L, Albumin 2.3 L, Globulin 3.5, Albumin/Globulin Ratio 0.7 L 02/27/22 07:10: WBC 11.8 H, RBC 3.01 L, Hgb 8.9 L, Hct 27.9 L, MCV 92.7, MCH 29.6, MCHC 31.9 L, RDW Std Deviation 47.7 H, RDW Coeff of Cait 13.9, Plt Count 363, MPV 10.3, Immature Gran % (Auto) 0.900, Neut % (Auto) 68.0, Lymph % (Auto) 14.7 L, [place] % (Auto) 9.9, Eos % (Auto) 5.7 H, Baso % (Auto) 0.8, Absolute Neuts (auto) 8.0 H, Absolute Lymphs (auto) 1.74, Nucleated RBC % 0 02/27/22 11:15: POC Glucose 254 H Microbiology: Microbiology 02/24/22 15:50 Urine, Clean Catch Urine Culture - Final Culture exhibits no growth. Meaningful Use Info Meaningful Use Diagnoses (Choose all that apply): None applicable Discharge Plan Admission Admit Date/Time: 02/24/22 16:01 Primary Reason for Your Visit: Fall with debility, aspiration Attending Provider: Adiel Umanzor Primary Care Provider: Jennifer Watt Consulting Providers: Carmela Ruffin Discharge Orders/Prescriptions Prescriptions: New hydralazine 50 mg Tablet 75 mg PO TID Qty: 0 0RF Rx Instructions: Hold for SBP less than 130 mmHg insulin glargine-yfgn 100 unit/mL (3 mL) Insulin Pen 20 unit subcut DAILY Qty: 0 0RF Rx Instructions: Hold if glucose less than 130 mg/dl acetaminophen [Tylenol] 325 mg Tablet 650 mg PO Q6H PRN PRN (Reason: Pain 1-10 Or Fever>100.7) Qty: 0 0RF ipratropium-albuterol 0.5 mg-3 mg(2.5 mg base)/3 mL Solution For Nebulization 3 ml inhalation Q6HWA.RT PRN (Reason: SOB) Qty: 0 0RF sennosides-docusate sodium [Stool Softener-Stimulant Laxat] 8.6-50 mg Tablet 2 tab PO BID PRN PRN (Reason: Constipation) Qty: 0 0RF losartan 25 mg Tablet 25 mg PO DAILY Qty: 0 0RF Rx Instructions: Uptitrate as tolerated by kidney function amoxicillin-pot clavulanate [Augmentin] 500-125 mg tablet 1 tab PO BID 4 Days Qty: 8 0RF insulin lispro [Humalog KwikPen Insulin] 100 unit/mL Insulin Pen See Protocol subcut ACHS Qty: 0 0RF Protocol: 3. Sliding Scale Insulin Med Dosing Condition: 150-189 mg/dl = 1 unit Condition: 190-229 mg/dl = 2 units Condition: 230-269 mg/dl = 3 units Condition: 270-309 mg/dl = 4 units Condition: 310-349 mg/dl = 5 units Condition: 350-399 mg/dl = 6 units Condition: 400-449 mg/dl = 7 units Condition: Greater than 449 call physician Protocol Text: - Use for Total Daily Dose of Insulin 37-55 units - Obsese, infected, or steroid patients MEDIUM DOSING ALGORITHIM Continued multivitamin,ua-vwjv-otczjaen tablet tablet 1 tab PO QDAY aspirin 81 mg tablet,chewable 81 mg PO BREAKFAST insulin glargine [[employer]aglar KwikPen U-100 Insulin] 100 unit/mL (3 mL) insulin pen 16 unit SUBCUT DAILY ferrous sulfate 325 mg (65 mg iron) Capsule, Extended Release 65 mg PO DAILY Arthritis Pain Compound 0 click topical BID latanoprost 0.005 % drops 1 drp EACH EYE HS carvedilol 25 mg tablet 25 mg PO BID Rx Instructions: must administer with a meal/food clopidogrel [Plavix] 75 mg tablet 75 mg PO DAILY doxazosin 8 mg tablet 8 mg PO QHS pramipexole 0.125 mg tablet 0.125 mg PO QHS gabapentin 300 mg capsule 300 mg PO 2100 gabapentin 100 mg capsule 100 mg PO BID sertraline 50 mg tablet 50 mg PO DAILY ezetimibe [Zetia] 10 mg tablet 10 mg PO DAILY Rx Instructions: take at bedtime (DME) Handicap Placard See Rx Instructions .Route .MEDSUPPLY Qty: 1 0RF Rx Instructions: Length of time: 5 years (DME) pen needle, diabetic [BD Sanaz 2nd Gen Pen Needle] 32 gauge x 532 needle See Rx Instructions .ROUTE .MEDSUPPLY Qty: 50 2RF Rx Instructions: use once daily to adminster insulin as directed. Changed amlodipine 10 mg Tablet 5 mg PO DAILY Qty: 5 0RF Held metformin 500 mg tablet 500 mg PO DAILY Hold Instructions: Hold until creatinine clearance more than 50 ml/min Discontinued metformin 1,000 mg Tablet 1,000 mg PO QHS hydralazine 50 mg tablet 100 mg PO TID levofloxacin 750 mg tablet 750 mg PO Q48H Rx Instructions: Take only every other day losartan 100 mg tablet 100 mg PO DAILY Referrals / Follow Up: Jennifer Watt MD [Primary Care Provider] - Carmela Ruffin MD [Med Staff - Consulting] - Within 2 Weeks Disposition Disposition (needs filled in before D/C Order can be placed): [facility] Facility Charges/Coding Visit Charges Inpatient E&M: 10280 Disch Hosp
[2022-02-27 13:39] VITALS: BP 134/52; PULSE 54; RESP 18; TEMP 36.6; O2SAT 97
[2022-02-27 14:29] VITALS: RESP 20
== END 2022-02-27 15:24 | disposition skilled nursing facility (03) | DRG 682 ==
LOC: ED 15:54 → MS3 16:23
PROVIDERS: Nurse Practitioner Adult Health; Admitting Provider Internal Medicine; Emergency Provider Emergency Medicine; PCP Internal Medicine; Visit Provider Internal Medicine
DX: N17.9 Acute kidney failure, unspecified (principal); E11.51 Type 2 diabetes mellitus with diabetic peripheral angiopathy without gangrene; J69.0 Pneumonitis due to inhalation of food and vomit; I69.354 Hemiplegia and hemiparesis following cerebral infarction affecting left non-dominant side; E11.22 Type 2 diabetes mellitus with diabetic chronic kidney disease; E11.40 Type 2 diabetes mellitus with diabetic neuropathy, unspecified; Z79.4 Long term (current) use of insulin; N18.32 Chronic kidney disease, stage 3b; J81.1 Chronic pulmonary edema; S09.90XA Unspecified injury of head, initial encounter; G25.81 Restless legs syndrome; E78.5 Hyperlipidemia, unspecified; I12.9 Hypertensive chronic kidney disease with stage 1 through stage 4 chronic kidney disease, or unspecified chronic kidney disease; S20.212A Contusion of left front wall of thorax, initial encounter; F41.9 Anxiety disorder, unspecified; E86.0 Dehydration; W19.XXXA Unspecified fall, initial encounter; R13.12 Dysphagia, oropharyngeal phase; Z79.82 Long term (current) use of aspirin; F32.A Depression, unspecified; H40.9 Unspecified glaucoma; N40.0 Benign prostatic hyperplasia without lower urinary tract symptoms; M62.81 Muscle weakness (generalized); Z20.822 Contact with and (suspected) exposure to COVID-19; Z79.02 Long term (current) use of antithrombotics/antiplatelets; Z79.899 Other long term (current) drug therapy; M79.89 Other specified soft tissue disorders
CPT/HCPCS: 36415; 70450; 71045; 71101; 76770; 80048; 80053; 80069; 81001; 82550; 82962; 83735; 84100; 84443; 85025; 87086; 87426; 92526; 92610; 93005; 93970; 94002; 94003; 94640; 94762; 96361; 96365; 96366; 96375; 97116; 97162; 97166; 97530; 97535; 97802; 99221; 99251; 99285; J7030; A4216; G0378; G0463; J0295; J1940

== ENCOUNTER 2022-02-27 15:35 | Inpatient (IN) | payer MEDICARE, SELFPAY ==
[2022-02-27 15:42] VITALS: BP 158/61; PULSE 59; RESP 18; TEMP 36.4; O2SAT 96; BMI 25.0
[2022-02-27 16:00] VITALS: BP 158/61; PULSE 59; RESP 18; TEMP 36.4; O2SAT 96
--- NOTE | 2022-02-27 16:30 | HP.PCM_ITS ---
HPI - General General Date of Admission: 02/27/22 Date of Service: 03/01/22 Chief Complaint: Here for rehab. HPI Narrative 02/24/2022 SHAISTA CLOUD, is a 81 Male who presents to [facility] Emergency Department with fall. 02/24/2022 EKG normal sinus rhythm, normal EKG. Walks with assistance with walker at baseline. Fell, hit chest, left forehead, left rib cage. Weak, unable to walk. WBC 10.4, Hemoglobin 8.7, Creatinine 1.96. CT brain negative. Family unable to care for him at home. 02/24/2022 Admit to Hospital. Unasyn, Duoneb, ST for aspiration pneumonia. Hold Losartan for acute kidney injury. 02/25/2022 Short of breath, mild improvement, leg swelling present. Lasix 40mg IV for fluid overload. MRI brain to rule out stroke. Creatinine 2.03. 02/26/2022 Shortness of breath improved. Creatinine improved for 1.66, stop Lasix. Cancel MRI brain, new stroke unlikely. 02/27/2022 Admit to TCU with debility, here for rehabilitation, strengthening, prior to discharge home with family. [facility] Medical History Absent pedal pulses Acute left-sided muscle weakness Depression Dysphagia Essential hypertension Facial droop due to acute stroke History of CVA (cerebrovascular accident) (12/2020) Hydrocele in adult Hyperlipidemia Normocytic normochromic anemia Osteoarthritis Peripheral vascular occlusive disease Proteinuria due to type 2 diabetes mellitus Recurrent inguinal hernia of right side without obstruction or gangrene Restless legs Right pontine CVA Right renal artery stenosis Skin lesion of face Type 2 diabetes mellitus Home Medications multivitamin,ay-otza-kuunocsz (Complete Multivitamin tablet) 1 tab PO QDAY supplement 03/03/17 [History Last Taken 02/23/22] aspirin 81 mg chewable tablet 81 mg PO BREAKFAST heart health 01/02/21 [History Last Taken 02/24/22] Handicap Placard #1 ea 02/12/21 [Rx Last Taken Unknown] pen needle, diabetic 32 gauge x 32 (BD Sanaz 2nd Gen Pen Needle) #50 ea 06/02/21 [Rx Last Taken Unknown] insulin glargine 100 unit/mL (3 mL) subcutaneous pen (Gabriela Ortega U-100 Insulin) 16 unit subcut DAILY Diabetes 02/16/22 [History Last Taken 02/24/22] metformin 500 mg tablet 500 mg PO DAILY DIABETES 02/16/22 [History Last Taken 02/24/22] Arthritis Pain Compound 1 click topical BID joint pain 02/24/22 [History Last Taken 02/23/22] carvedilol 25 mg tablet 25 mg PO BID heart 02/24/22 [History Last Taken 02/24/22] clopidogrel 75 mg tablet (Plavix) 75 mg PO DAILY blood thinner 02/24/22 [History Last Taken 02/23/22] doxazosin 8 mg tablet 8 mg PO QHS bph 02/24/22 [History Last Taken 02/23/22] ezetimibe 10 mg tablet (Zetia) 10 mg PO QHS cholesterol 02/24/22 [History Last Taken 02/23/22] ferrous sulfate 325 mg (65 mg iron) capsule,extended release 65 mg PO DAILY supplement 02/24/22 [History Last Taken 02/23/22] gabapentin 100 mg capsule 100 mg PO BID pain 02/24/22 [History Last Taken 02/24/22] gabapentin 300 mg capsule 300 mg PO 2100 pain 02/24/22 [History Last Taken 02/23/22] latanoprost 0.005 % eye drops 1 drp EACH EYE HS eyes 02/24/22 [History Last Taken 02/23/22] pramipexole 0.125 mg tablet 0.125 mg PO QHS parkinsons 02/24/22 [History Last Taken 02/23/22] sertraline 50 mg tablet 50 mg PO DAILY mood 02/24/22 [History Last Taken 02/24/22] acetaminophen 325 mg tablet (Tylenol) 650 mg PO Q6H PRN PRN Pain 1-10 Or Fever>100.7 #0 tabs 02/27/22 [Rx Last Taken Unknown] amlodipine 10 mg tablet 5 mg PO DAILY BP 02/27/22 [History Last Taken Unknown] amoxicillin 500 mg-potassium clavulanate 125 mg tablet (Augmentin) 1 tab PO BID Antibiotic 02/27/22 [History Last Taken Unknown] hydralazine 50 mg tablet 75 mg PO TID BP 02/27/22 [History Last Taken Unknown] insulin glargine-yfgn 100 unit/mL (3 mL) subcutaneous pen 20 unit subcut DAILY Diabetes 02/27/22 [History Last Taken Unknown] insulin lispro 100 unit/mL subcutaneous pen (Humalog KwikPen (U-100) Insulin) See Protocol subcut ACHS Diabetes 02/27/22 [History Last Taken Unknown] ipratropium 0.5 mg-albuterol 3 mg (2.5 mg base)/3 mL nebulization soln 3 ml inhalation Q6HWA.RT PRN SOB #0 mL 02/27/22 [Rx Last Taken Unknown] losartan 25 mg tablet 25 mg PO DAILY BP 02/27/22 [History Last Taken Unknown] sennosides 8.6 mg-docusate sodium 50 mg tablet (Stool Softener-Stimulant Laxative) 2 tab PO BID PRN PRN Constipation #0 tabs 02/27/22 [Rx Last Taken Unkn own] Allergy/AdvReac Type Severity Reaction Status Date / Time meloxicam [From Mobic] Allergy Intermediate itching Verified 02/24/22 13:22 pravastatin [From Pravachol] AdvReac Mild myalgia Verified 02/24/22 13:22 cholestyramine AdvReac hypoglycemi Verified 02/24/22 13:22 a Family History Mother Hypertension Cancer Father Heart disease Diabetes Surgical History History of cataract surgery History of herniorrhaphy History of lumbar laminectomy History of stent insertion of renal artery (08/05/21) Status post laser cataract surgery of left eye Social History household members: spouse and other details: Abigail is his 's name housing: house number of children: 2 current occupational status: retired and other details: worked for [employer] prior to retiring leisure activities: other Smoking Status: Never smoker Electronic Cigarette Use: not used alcohol intake: former substance use type: does not use what type of physical activity do you participate in: walking frequency: 1-2 times per week ROS Constitutional Constitutional: Denies chills, fever(s) or weight gain ENT HEENT: Denies headache(s), nasal congestion or nasal discharge Cardiovascular Cardiovascular: Denies chest pain or palpitations Respiratory/Chest Respiratory/Chest: Denies cough, excessive phlegm production or shortness of breath with exertion Gastrointestinal Gastrointestinal: Denies abdominal pain, nausea or vomiting Genitourinary Genitourinary: Denies dysuria Musculoskeletal Musculoskeletal: Denies joint pain or joint swelling Integumentary Integumentary: Denies rash or wounds Neurologic Neurologic: Denies focal weakness, numbness or tingling Psychiatric Psychiatric: Denies anxiety, auditory hallucinations, depression, homicidal ideation or suicidal ideation Vital Signs Vital Signs Vital Signs: 02/27/22 15:42 02/27/22 16:00 Temperature 97.5 F L 97.5 F L Temperature Source Temporal Temporal Pulse Rate 59 L 59 L Respiratory Rate 18 18 Blood Pressure 158/61 H 158/61 H Blood Pressure Mean 93 93 Blood Pressure Source Monitor Monitor Blood Pressure Position Semi-Fowlers Semi-Fowlers Blood Pressure Location Left Arm Left Arm Pulse Ox 96 96 Oxygen Delivery Method Nasal Cannula Nasal Cannula Oxygen Flow Rate (L/min) 3 3 Weight Weight: 83.915 kg Body Mass Index (BMI) 25.0 Physical Exam Const alert General Appearance: cooperative HEENT normocephalic Eyes PERRL and EOMs intact bilaterally Neck supple, no JVD and no carotid bruits Resp normal respiratory effort, normal air movement and clear to auscultation bilaterally Cardio regular rate and regular rhythm GI normal to inspection, nondistended, normoactive bowel sounds, non-tender and non-distended Extremity normal capillary refill General Extremity: Negative for edema Skin no rashes or lesions noted General Skin Exam: no breakdown Psych affect normal Appearance: appropriate Results Lab / Micro Data Result Diagrams: 02/28/22 06:24 02/28/22 06:24 Assessment & Plan Assessment/Plan (1) Debility: (2) Fall: (3) Aspiration pneumonia: (4) Acute kidney injury: (5) Dehydration: (6) Right-sided cerebrovascular accident (CVA): (7) Left hemiparesis: (8) Diabetes mellitus: (9) Glaucoma: (10) BPH (benign prostatic hyperplasia): (11) Restless leg syndrome: (12) Coronary artery disease: (13) Hyperlipidemia: (14) Depression: (15) Hypertension: (16) Chronic anemia: PLAN: Plan 81 year old male with below past medical history hospitalized for aspiration pneumonia, complicated by acute kidney injury, dehydration, admitted to TCU with debility, here for rehabilitation, strengthening, prior to discharge home with family. * Debility - PT/OT. * Pain - Tylenol 1000mg q6h prn pain (1-10), Arthritis pain compound 1 click topical bid prn. * Bowel - senna/colace 2 tablets bid, Dulcolax 10mg pr daily prn. * Adult immunization - Administer pneumonia vaccine, covid19 vaccine, flu vaccine. * DVT prophylaxis - Hold, on dual antiplatelet therapy. * Hypertension - Coreg 25mg bid, Losartan 25mg daily, Amlodipine 5mg daily, Hydralazine 75mg tid. * Aspiration pneumonia - Augmentin 500mg bid thru 03/03/2022. * Stroke - Aspirin 81mg daily, Plavix 75mg daily. * BPH - Doxazosin 8mg qhs. * Hyperlipidemia - Zetia 10mg qhs. * Iron deficiency anemia - Ferrous sulfate 325mg daily. * Neuropathic pain - Gabapentin 100mg bidcm, 300mg 2100. * Diabetes Mellitus II - Glargine 30 units daily, Lispro 10 units with meals. * Shortness of breath - Duoneb 3ml q6h prn. * Glaucoma - Latanoprost 0.005% 1gtt ou qhs. * Nutrition - MVI daily. * Restless leg syndrome - Mirapex 0.125mg qhs. * Depression - Sertraline 50mg daily, stable chronic rn long term care use, GDR not re commended.
[2022-02-27 16:46] VITALS: O2SAT 96
[2022-02-27 17:19] VITALS: O2SAT 96
[2022-02-27] MEDS: Carvedilol 25 MG Tablet PO (17:27)
[2022-02-27] MEDS: 0.9% Saline Lock 10 ML Syringe IV ×2 (17:28→20:50)
[2022-02-27] MEDS: Senna/Docusate Sodium 1 Tablet 2 TABLET PO (17:28)
[2022-02-27] MEDS: Gabapentin 100 MG Capsule PO (17:28)
[2022-02-27] MEDS: Amox/Clavulanate 500 MG Tablet PO (17:32)
[2022-02-27] MEDS: Insulin Lispro 100 UNIT/ML INSULN.PEN SC (17:35)
[2022-02-27 17:51] LABS: Bedside Glucose 304 mg/dL (74-106)
[2022-02-27] MEDS: Gabapentin 300 MG Capsule PO (20:43)
[2022-02-27 20:55] VITALS: BP 162/59; PULSE 60
[2022-02-27] MEDS: hydrALAZINE 25 MG Tablet 75 MG PO (20:55)
[2022-02-27] MEDS: Ezetimibe 10 MG Tablet PO (20:55)
[2022-02-27] MEDS: Pramipexole Di-HCl 0.125 MG Tablet PO (20:55)
[2022-02-27] MEDS: Latanoprost 0.005% 1 Bottle 1 DRP EACH EYE (20:55)
[2022-02-27] MEDS: Doxazosin 4 MG Tablet 8 MG PO (20:55)
--- NOTE | 2022-02-27 21:00 | NURSING ---
Addendum entered by Monica Lopez 02/28/22 00:21: WELDER HELPER reports patient continent of extra large Bm at this time Original Note: PRN rectal suppository administered per patient request. LBM 02/23/22. Tolerated well. Patient reports incontinent of bowel at times. Respiratory called regarding patient home cpap in room, respiratory to assess. No distress observed or reported. Denies further requests. Call light in reach.
[2022-02-27] MEDS: Bisacodyl 10 MG Suppository RC (21:01)
[2022-02-28 00:50] LABS: Bedside Glucose 302 mg/dL (74-106)
[2022-02-28 06:40] LABS: Bedside Glucose 245 mg/dL (74-106)
[2022-02-28] MEDS: Insulin Glargine-YFGN 100 UNIT/ML Pen 20 UNIT SC (06:40)
[2022-02-28 06:41] VITALS: BP 171/64; PULSE 67
[2022-02-28] MEDS: hydrALAZINE 25 MG Tablet 75 MG PO ×3 (06:41→20:13)
[2022-02-28] MEDS: Clopidogrel Bisulfate 75 MG Tablet PO (06:41)
[2022-02-28] MEDS: Sertraline 50 MG Tablet PO (06:41)
[2022-02-28] MEDS: Losartan Potassium 25 MG Tablet PO (06:41)
[2022-02-28 06:42] LABS: Absolute Lymphocyte Count 1.42 X10^3/uL (0.83-4.51); Absolute Neutrophil Count 9.6 X10^3/uL (2.0-7.7); Basophil# 0.09 X10^3/uL; Basophil% 0.7 % (0-1); Eosinophil# 0.52 X10^3/uL; Eosinophils% 4.1 % (0-5); Hematocrit 26.6 % (40-54); Hemoglobin 8.7 g/dL (13.0-16.5); Lymphocyte # 1.42 X10^3/ul (0.83-4.51); Lymphocyte % 11.1 % (19-41); Mean Corp Hgb Conc 32.7 g/dL (32-36); Mean Corpuscular Hgb 30.2 pg (27.0-32.0); Mean Corpuscular Volume 92.4 fL (80-94); Mean Platelet Vol. 10.3 fl (6.2-12.0); Monocyte# 1.08 X10^3/uL; Monocyte% 8.4 % (0-10); NRBC Flagged by Analyzer 0 % (0-5); Neutrophil # 9.55 X10^3/uL (2.7-7.7); Neutrophil % 74.5 % (47-70); Platelet Count 357 K/mm3 (150-450); RBC Distribution Width CV 13.9 % (11.6-14.6); RBC Distribution Width SD 46.9 fl (35.1-43.9); Red Blood Count 2.88 M/mm3 (4.6-6.2); White Blood Count 12.8 K/mm3 (4.4-11.0)
[2022-02-28] MEDS: Carvedilol 25 MG Tablet PO ×2 (06:42→17:21)
[2022-02-28] MEDS: amLODIPine 5 MG Tablet PO (06:46)
[2022-02-28] MEDS: Senna/Docusate Sodium 1 Tablet 2 TABLET PO (06:46)
[2022-02-28 06:51] VITALS: O2SAT 97
[2022-02-28 07:07] LABS: Anion Gap 5 (5-15); BUN 43 mg/dL (7-18); BUN/Creat Ratio 29.7 RATIO (10-20); Chloride 110 mmol/L (98-107); Creatinine, Serum 1.45 mg/dL (0.70-1.30); EST Glomerular Filtration Rate 49 mL/min (>60); Est Glom Filt Rate - Afr Amer 60 mL/min (>60); Estimated Creatinine Clearance 43.11 ml/min; Glucose 273 mg/dL (74-106); Potassium 4.4 mmol/L (3.5-5.1); Sodium Level 142 mmol/L (136-145)
[2022-02-28] MEDS: Aspirin 81 MG TAB.CHEW PO (08:54)
[2022-02-28] MEDS: Multivitamins,Ther W-Minerals Tablet 1 TABLET PO (08:54)
[2022-02-28] MEDS: Amox/Clavulanate 500 MG Tablet PO ×2 (08:54→16:41)
[2022-02-28] MEDS: Gabapentin 100 MG Capsule PO ×2 (08:59→16:46)
[2022-02-28] MEDS: Acetaminophen 500 MG Tablet 1000 MG PO (09:08)
[2022-02-28 10:11] VITALS: RESP 18; O2SAT 96
[2022-02-28] MEDS: Tuberculin,Purif.prot.deriv. 50 TU/ML Vial 0.1 ML ID (10:50)
[2022-02-28] MEDS: Ferrous Sulfate 325 MG Tablet PO (11:50)
[2022-02-28 12:06] LABS: Bedside Glucose 286 mg/dL (74-106)
[2022-02-28 13:36] VITALS: BP 158/66; PULSE 65; RESP 18; TEMP 36.5; O2SAT 91
[2022-02-28 13:53] VITALS: BP 158/66; PULSE 65
[2022-02-28 17:40] LABS: Bedside Glucose 330 mg/dL (74-106)
[2022-02-28 20:13] VITALS: BP 150/50; PULSE 56
[2022-02-28] MEDS: Latanoprost 0.005% 1 Bottle 1 DRP EACH EYE (20:13)
[2022-02-28] MEDS: Pramipexole Di-HCl 0.125 MG Tablet PO (20:14)
[2022-02-28] MEDS: Ezetimibe 10 MG Tablet PO (20:14)
[2022-02-28] MEDS: Doxazosin 4 MG Tablet 8 MG PO (20:15)
[2022-02-28] MEDS: Gabapentin 300 MG Capsule PO (20:18)
[2022-02-28 21:05] LABS: Bedside Glucose 407 mg/dL (74-106)
--- NOTE | 2022-02-28 21:05 | NURSING ---
Updated Dr. Huffman on elevated BS and current BS of 407. NO orders for Humalog and Lantus refer to MAR.
[2022-02-28] MEDS: Insulin Lispro 100 UNIT/ML INSULN.PEN 10 UNIT SC (21:43)
[2022-03-01] MEDS: 0.9% Saline Lock 10 ML Syringe IV (05:43)
[2022-03-01 05:44] VITALS: BP 176/68; PULSE 64
[2022-03-01] MEDS: Carvedilol 25 MG Tablet PO ×2 (05:44→17:59)
[2022-03-01] MEDS: Clopidogrel Bisulfate 75 MG Tablet PO (05:44)
[2022-03-01] MEDS: amLODIPine 5 MG Tablet PO (05:44)
[2022-03-01] MEDS: hydrALAZINE 25 MG Tablet 75 MG PO ×3 (05:44→21:59)
[2022-03-01] MEDS: Losartan Potassium 25 MG Tablet PO (05:44)
[2022-03-01] MEDS: Senna/Docusate Sodium 1 Tablet 2 TABLET PO ×2 (05:44→18:00)
[2022-03-01] MEDS: Sertraline 50 MG Tablet PO (05:44)
[2022-03-01 06:30] LABS: Bedside Glucose 140 mg/dL (74-106)
[2022-03-01] MEDS: Insulin Glargine-YFGN 100 UNIT/ML Pen 30 UNIT SC (06:33)
[2022-03-01] MEDS: Ipratropium/Albuterol Sulfate 3 ML AMPUL.NEB INHALATION (07:00)
[2022-03-01 07:02] VITALS: PULSE 77; RESP 18; O2SAT 93
--- NOTE | 2022-03-01 07:03 | CPS ---
PATIENT REQUESTED PRN TREATMENT.
[2022-03-01] MEDS: Insulin Lispro 100 UNIT/ML INSULN.PEN 7 UNIT SC ×3 (08:25→17:57)
[2022-03-01] MEDS: Gabapentin 100 MG Capsule PO ×2 (08:26→17:59)
[2022-03-01] MEDS: Amox/Clavulanate 500 MG Tablet PO ×2 (08:27→17:59)
[2022-03-01] MEDS: Aspirin 81 MG TAB.CHEW PO (08:27)
[2022-03-01] MEDS: Multivitamins,Ther W-Minerals Tablet 1 TABLET PO (08:27)
--- NOTE | 2022-03-01 10:40 | NURSING ---
Podiatric Surgeon Note; Activity Asset: Aicha Singh's family will visit daily. He has a smartphone and tablet that his and he play games on together. He will read the paper and watch tv independently.
[2022-03-01] MEDS: Acetaminophen 500 MG Tablet 1000 MG PO (10:52)
[2022-03-01 11:10] LABS: Bedside Glucose 134 mg/dL (74-106)
--- NOTE | 2022-03-01 11:24 | PHA.CONS_ITS ---
TCU RX Drug Regimen Review Subjective: TCU Admission. 81 YOM presented to the ER with a fall. Hospitalized for aspiration pneumonia, complicated by acute kidney injury, dehydration. Admitted to TCU with debility for strengthening and rehabilitation. Objective: Allergies meloxicam [From Mobic] Allergy (Intermediate, Verified 02/24/22 13:22) itching pravastatin [From Pravachol] Adverse Reaction (Mild, Verified 02/24/22 13:22) myalgia cholestyramine Adverse Reaction (Verified 02/24/22 13:22) hypoglycemia Current Medications Generic Name Dose Route Start Last Admin Trade Name Freq PRN Reason Stop Dose Admin Acetaminophen 1,000 mg 02/27/22 16:44 03/01/22 10:52 Acetaminophen 500 Mg Tablet PO 1,000 mg Q6H PRN PRN Administration Pain Score 1-10 Albuterol/Ipratropium 3 ml 02/27/22 15:55 03/01/22 07:00 Ipratropium/Albuterol Sulfate 3 Ml Ampul.Neb INHALATION 3 ml Q6HWA.RT PRN Administration SHORTNESS OF BREATH Amlodipine Besylate 5 mg 02/28/22 06:00 03/01/22 05:44 Amlodipine 5 Mg Tablet PO 5 mg DAILY JL Administration Amoxicillin/Clavulanate Potassium 500 mg 02/27/22 17:00 03/01/22 08:27 Amox/Clavulanate 500 Mg Tablet PO 03/03/22 08:01 500 mg BIDCM LJ Administration Aspirin 81 mg 02/28/22 08:00 03/01/22 08:27 Aspirin 81 Mg Tab.Chew PO 81 mg BREAKFAST LJ Administration Bisacodyl 10 mg 02/27/22 16:11 02/27/22 21:01 Bisacodyl 10 Mg Suppository RC 10 mg DAILY PRN Administration CONSTIPATION Carvedilol 25 mg 02/27/22 18:00 03/01/22 05:44 Carvedilol 25 Mg Tablet PO 25 mg BID LJ Administration Clopidogrel Bisulfate 75 mg 02/28/22 06:00 03/01/22 05:44 Clopidogrel Bisulfate 75 Mg Tablet PO 75 mg DAILY LJ Administration Compound Med 1 click 02/27/22 16:34 Arthritis Pain Compound 60 Click Tube TOPICAL BID PRN Pain Score 1-10 Doxazosin Mesylate 8 mg 02/27/22 22:00 02/28/22 20:15 Doxazosin 4 Mg Tablet PO 8 mg QHS [facility] Administration Ezetimibe 10 mg 02/27/22 22:00 02/28/22 20:14 Ezetimibe 10 Mg Tablet PO 10 mg QHS [facility] Administration Ferrous Sulfate 325 mg 02/28/22 12:00 02/28/22 11:50 Ferrous Sulfate 325 Mg Tablet PO 325 mg DAILY@1200 LJ Administration Gabapentin 100 mg 02/27/22 17:00 03/01/22 08:26 Gabapentin 100 Mg Capsule PO 100 mg BIDCM LJ Administration Gabapentin 300 mg 02/27/22 21:00 02/28/22 20:18 Gabapentin 300 Mg Capsule PO 300 mg 2100 [facility] Administration Hydralazine HCl 75 mg 02/27/22 22:00 03/01/22 05:44 Hydralazine 25 Mg Tablet PO 75 mg TID [facility] Administration Insulin Glargine 20 unit 03/02/22 06:00 Insulin Glargine-Yfgn 100 Unit/Ml Pen SC DAILY [facility] Insulin Human Lispro 7 unit 03/01/22 11:45 03/01/22 08:25 Insulin Lispro 100 Unit/Ml Insuln.Pen SC 7 units TIDAC [facility] Administration Latanoprost 1 drp 02/27/22 22:00 02/28/22 20:13 Latanoprost 0.005% 1 Bottle EACH EYE 1 drp [facility] Administration Losartan Potassium 25 mg 02/28/22 06:00 03/01/22 05:44 Losartan Potassium 25 Mg Tablet PO 25 mg DAILY LJ Administration Multivitamins/Minerals 1 tablet 02/28/22 08:00 03/01/22 08:27 Multivitamins,Ther W-Minerals Tablet PO 1 tablet BREAKFAST [facility] Administration Pramipexole Dihydrochloride 0.125 mg 02/27/22 22:00 02/28/22 20:14 Pramipexole Di-Hcl 0.125 Mg Tablet PO 0.125 mg QHS [facility] Administration Senna/Docusate Sodium 2 tablet 02/27/22 18:00 03/01/22 05:44 Senna/Docusate Sodium 1 Tablet PO 2 tablet BID [facility] Administration Sertraline HCl 50 mg 02/28/22 06:00 03/01/22 05:44 Sertraline 50 Mg Tablet PO 50 mg DAILY [facility] Administration Sodium Chloride 10 - 40 ml 02/27/22 15:57 03/01/22 05:43 0.9% Saline Lock 10 Ml Syringe IV 20 ml UD PRN Administration SALINE FLUSH Tuberculin PPD 0.1 ml 03/07/22 10:00 Tuberculin,Purif.Prot.Deriv. 50 Tu/Ml Vial ID 03/07/22 10:01 X1 ONE Problem List (Last Reviewed 02/27/22 @ 16:[address] Johnathan Huffman MD) Chronic anemia (Chronic) Hypertension (Chronic) Depression (Acute) Hyperlipidemia (Acute) Coronary artery disease (Acute) Restless leg syndrome (Acute) BPH (benign prostatic hyperplasia) (Acute) Glaucoma (Acute) Diabetes mellitus (Acute) Left hemiparesis (Acute) Right-sided cerebrovascular accident (CVA) (Acute) Dehydration (Acute) Acute kidney injury (Acute) Aspiration pneumonia (Acute) Fall (Acute) Debility (Acute) Vital Signs Temp Pulse Resp BP Pulse Ox O2 Del Method O2 Flow Rate 97.7 F L 77 18 176/68 H 93 Nasal Cannula 2 02/28/22 13:36 03/01/22 07:02 03/01/22 07:02 03/01/22 05:44 03/01/22 07:02 03/01/22 07:02 03/01/22 07:02 Oxygen Flow Rate (L/min) 2 Oxygen Delivery Method Nasal Cannula Weight: 83.915 kg Body Mass Index (BMI) 25.0 Sodium 142 mmol/L (136-145) 02/28/22 06:24 Potassium 4.4 mmol/L (3.5-5.1) 02/28/22 06:24 Chloride 110 mmol/L (98-107) H 02/28/22 06:24 Carbon Dioxide 27.0 mmol/L (21.0-32.0) 02/28/22 06:24 Anion Gap 5 (5-15) 02/28/22 06:24 BUN 43 mg/dL (7-18) H 02/28/22 06:24 Creatinine 1.45 mg/dL (0.70-1.30) H 02/28/22 06:24 Est GFR (MDRD) Af Amer 60 mL/min (>60) 02/28/22 06:24 Est GFR (MDRD) Non-Af 49 mL/min (>60) L 02/28/22 06:24 BUN/Creatinine Ratio 29.7 RATIO (10-20) H 02/28/22 06:24 Glucose 273 mg/dL (74-106) H 02/28/22 06:24 Assessment/Plan: 1. Pain: acetaminophen 1000mg PO Q6H PRN pain 1-10 and arthritis pain compound 1 click BID topically (apply to shoulder) PRN pain 1-10. No doses of pain compound given. Resident has had 2 doses of acetaminophen for pain of 3-4 of generalized/rib pain. Please continue to monitor for increased pain and PRN usage. 2. Bowel: senna/docusate 2T PO BID and bisacodyl 10mg RC daily PRN constipation. Resident has received 2 doses of bisacodyl and had a bowel movement per nursing note from this AM. Please continue to monitor for constipation and PRN usage. 3. Aspiration pneumonia: Augmentin 500 BID thru 03/03/22. Please continue to monitor for S/S of infection, renal function and diarrhea. 4. Hypertension: carvedilol 25mg PO BID, losartan 25mg PO daily, amlodipine 5mg PO daily and hydralazine 75mg PO TID. Please continue to monitor BP (last 176/68), HR (last 77), potassium (last 4.4mmol/L), renal function, cough, s welling, headache and facial flushing. 5. Stroke: aspirin 81mg PO BREAKFAST and clopidogrel 75mg PO daily. Please continue to monitor for S/S of bleeding and hemoglobin (last 8.7g/dL). 6. Hyperlipidemia: ezetimibe 10mg PO QHS. Please continue to monitor lipid panel (last 04/22/21). 7. Diabetes mellitus II: insulin glargine 20units SC daily and insulin lispro 7units TIDAC. Please continue to monitor for S/S of hypoglycemia, hemoglobin A1c (last 6.4% 01/06/22) and glucose (last 134mg/dL). 8. BPH: doxazosin 8mg PO QHS. Please continue to monitor for S/S of BPH, dizziness, drowsiness and BP. 9. Shortness of breath: Duoneb 3mL inhalation Q6H PRN SOB. Resident has received 1 dose. Please continue to monitor for SOB and PRN usage. 10. Glaucoma: latanoprost 0.005% solution 1gtt OU QHS. Please continue to monitor for S/S of glaucoma and dry/itchy eyes. 11. Restless leg syndrome: pramipexole 0.125mg PO QHS. Please continue to monitor for S/S RLS. 12. Iron deficiency anemia: ferrous sulfate 325mg PO lunch. Please continue to monitor hemoglobin, constipation and dark stools. 13. Nutrition: multivitamin with minerals 1T PO breakfast. Please continue to monitor. Assessment/Plan for indications treated with psychotropic medications: 1. Neuropathic pain: gabapentin 100mg PO BIDCM and 300mg @2100. Based on resident's renal function (CrCl 43 mL/min), gabapentin should be given in 2 doses to decrease the risk of a fall (BEERs criteria) for which the patient was admitted. Please consider changing first dose to 200mg, eliminating the second 100mg dose and keeping the 300mg night dose if clinically appropriate. Thanks. GDR not appropriate since the medication is being used for neuropathic pain. 2. Depression: sertraline 50mg PO daily. Please continue to monitor for falls/fractures (BEERs medication), suicidal ideation (black bow warning), weight gain and GI side effects. Please see physician note regarding GDR. Medical chart and medication regimen reviewed. The following medication irregularities or issues were identified: *1. Gabapentin 100mg PO BIDCM and 300mg @2100. Based on resident's renal function (CrCl 43 mL/min), gabapentin should be given in 2 doses to decrease the risk of a fall (BEERs criteria) for which the patient was admitted. Please consider changing first dose to 200mg, eliminating the second 100mg dose and keeping the 300mg night dose if clinically appropriate. Thanks. Date of Note:: 03/01/22
[2022-03-01] MEDS: Ferrous Sulfate 325 MG Tablet PO (13:23)
[2022-03-01 13:24] VITALS: BP 139/63; PULSE 58
--- NOTE | 2022-03-01 14:23 | NURSING ---
Resident educated on the COVID 19 vaccine along with his and he does not want to receive it at this time.
--- NOTE | 2022-03-01 14:43 | NURSING ---
Called podiatry consult to get nails trimmed, per staff @ office they will notify Dr. Nieto who is on this week.
[2022-03-01 14:54] VITALS: BP 137/57; PULSE 58; RESP 14; TEMP 36.1; O2SAT 91
--- NOTE | 2022-03-01 15:35 | CASEMGMT ---
Social Work Met with patient to complete initial assessment. Pt known this worker from previous RU stay and stroke support group attendee. Verified contacts. Updated information from previous assessment. Pt confirms DNR-CCA WITH intubation. MOLST placed in Dr folder. Educated to [facility] insurance with [employer] 03/01 and continued stay is not guaranteed with each review. Broached topic of hiring assistance in the home or SNF placement. Pt stated I will leave that up to my . She is number one. Pt agreeable to what chooses. Pt is motivated to get stronger in therapy and maintain strength at home. SW to continue to follow. Dtr presented to this worker's office to express concern about how pt and were functioning at home. Dtr requested this remain a private conversation. SW provided supportive listening and acknowledged feelings. Validated dtr being an advocate for pt and and wanting both to be safe. Dtr to be present at POC with pt and . SW to continue to follow for support. Tiffanie Meyers, [employer] T[employer]ATMENT SPECIALIST
[2022-03-01 16:25] LABS: Bedside Glucose 236 mg/dL (74-106)
[2022-03-01] MEDS: Glucerna Shake 120 ML LIQUID PO (17:59)
[2022-03-01] MEDS: Lidocaine 5% 35GM Tube 1 APPLIC TOPICAL (18:49)
[2022-03-01] MEDS: Gabapentin 300 MG Capsule PO (21:50)
[2022-03-01] MEDS: Latanoprost 0.005% 1 Bottle 1 DRP EACH EYE (21:53)
[2022-03-01 21:59] VITALS: BP 159/70; PULSE 62
[2022-03-01] MEDS: Doxazosin 4 MG Tablet 8 MG PO (21:59)
[2022-03-01] MEDS: Ezetimibe 10 MG Tablet PO (22:00)
[2022-03-01] MEDS: Pramipexole Di-HCl 0.125 MG Tablet PO (22:00)
[2022-03-01 22:15] VITALS: PULSE 60; RESP 14; O2SAT 95
[2022-03-01 22:30] LABS: Bedside Glucose 246 mg/dL (74-106)
[2022-03-02] VITALS (8 sets, daily range): BP systolic 127–182; BP diastolic 54–80; PULSE 59–69; RESP 17; TEMP 36.4; O2SAT 95–96
--- NOTE | 2022-03-02 06:13 | NURSING ---
AM BS 65. Pt A&O x3 and @ baseline condition, no c/o. Brule juice given. Will recheck BS.
[2022-03-02] MEDS: Carvedilol 25 MG Tablet PO ×2 (06:18→17:55)
[2022-03-02] MEDS: Sertraline 50 MG Tablet PO (06:18)
[2022-03-02] MEDS: hydrALAZINE 25 MG Tablet 75 MG PO ×3 (06:18→21:12)
[2022-03-02] MEDS: Senna/Docusate Sodium 1 Tablet 2 TABLET PO ×2 (06:18→17:55)
[2022-03-02] MEDS: Clopidogrel Bisulfate 75 MG Tablet PO (06:18)
[2022-03-02] MEDS: Losartan Potassium 25 MG Tablet PO (06:18)
[2022-03-02] MEDS: amLODIPine 5 MG Tablet PO (06:18)
[2022-03-02 06:31] LABS: Bedside Glucose 170 mg/dL (74-106)
[2022-03-02] MEDS: Insulin Glargine-YFGN 100 UNIT/ML Pen 20 UNIT SC (06:51)
[2022-03-02] MEDS: Aspirin 81 MG TAB.CHEW PO (08:20)
[2022-03-02] MEDS: Gabapentin 100 MG Capsule PO ×2 (08:20→17:54)
[2022-03-02] MEDS: Multivitamins,Ther W-Minerals Tablet 1 TABLET PO (08:20)
[2022-03-02] MEDS: Amox/Clavulanate 500 MG Tablet PO ×2 (08:20→17:55)
[2022-03-02] MEDS: Glucerna Shake 120 ML LIQUID PO ×3 (08:21→17:54)
[2022-03-02] MEDS: Insulin Lispro 100 UNIT/ML INSULN.PEN 7 UNIT SC ×4 (08:21→21:45)
[2022-03-02] MEDS: Arthritis Pain Compound 60 CLICK TUBE TOPICAL (09:05)
[2022-03-02 11:11] LABS: Bedside Glucose 265 mg/dL (74-106)
[2022-03-02] MEDS: Ferrous Sulfate 325 MG Tablet PO (11:57)
[2022-03-02 17:00] LABS: Bedside Glucose 236 mg/dL (74-106)
[2022-03-02] MEDS: Ezetimibe 10 MG Tablet PO (21:09)
[2022-03-02] MEDS: Gabapentin 300 MG Capsule PO (21:09)
[2022-03-02] MEDS: Pramipexole Di-HCl 0.125 MG Tablet PO (21:11)
[2022-03-02] MEDS: Doxazosin 4 MG Tablet 8 MG PO (21:11)
[2022-03-02] MEDS: Latanoprost 0.005% 1 Bottle 1 DRP EACH EYE (21:12)
[2022-03-02 21:41] LABS: Bedside Glucose 326 mg/dL (74-106)
--- NOTE | 2022-03-02 21:41 | NURSING ---
Contacted Dr. Huffman via telephone regarding blood glucose level 326. New orders received: 1.Humalog SC 7 units x1 now 2.Increase insulin glargine sc to 30units once daily 3.increase routine humalog tid with meals to 10units SC TIDAC All orders repeated back to Dr. Huffman.
[2022-03-03] VITALS (7 sets, daily range): BP systolic 145–167; BP diastolic 54–64; PULSE 56–82; RESP 14–16; TEMP 36.1; O2SAT 93–96
[2022-03-03 01:00] LABS: Bedside Glucose 190 mg/dL (74-106)
[2022-03-03] MEDS: Senna/Docusate Sodium 1 Tablet 2 TABLET PO ×2 (06:00→17:29)
[2022-03-03] MEDS: Clopidogrel Bisulfate 75 MG Tablet PO (06:00)
[2022-03-03] MEDS: hydrALAZINE 25 MG Tablet 75 MG PO ×3 (06:00→21:28)
[2022-03-03] MEDS: Sertraline 50 MG Tablet PO (06:00)
[2022-03-03] MEDS: Losartan Potassium 25 MG Tablet PO (06:00)
[2022-03-03] MEDS: amLODIPine 5 MG Tablet PO (06:00)
[2022-03-03] MEDS: Carvedilol 25 MG Tablet PO ×2 (06:02→17:29)
[2022-03-03] MEDS: 0.9% Saline Lock 10 ML Syringe IV (06:29)
[2022-03-03] MEDS: Insulin Glargine-YFGN 100 UNIT/ML Pen 30 UNIT SC (06:30)
[2022-03-03 06:35] LABS: Bedside Glucose 172 mg/dL (74-106)
[2022-03-03] MEDS: Aspirin 81 MG TAB.CHEW PO (08:13)
[2022-03-03] MEDS: Insulin Lispro 100 UNIT/ML INSULN.PEN 10 UNIT SC ×3 (08:13→17:28)
[2022-03-03] MEDS: Amox/Clavulanate 500 MG Tablet PO (08:13)
[2022-03-03] MEDS: Multivitamins,Ther W-Minerals Tablet 1 TABLET PO (08:13)
[2022-03-03] MEDS: Gabapentin 100 MG Capsule PO ×2 (08:16→17:29)
[2022-03-03] MEDS: Glucerna Shake 120 ML LIQUID PO ×3 (08:16→17:29)
--- NOTE | 2022-03-03 10:04 | CASEMGMT ---
Social Work IDT met with patient, and dtr for care plan meeting. Discussed patient's progress in PT/OT/ST/SN. Educated to [facility] insurance with [employer] 03/01 and have not received outcome yet; continued stay is not guaranteed with each review. Dtr overall expressing concern about the carryover of pt continuing with therapy and doing tasks as independently as possible at home. SW acknowledged concerns. 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 Pt is not being defiant with tasks, the brain is impacted with the ability to initiate tasks. SW shared with that pt expressed the DC plan will look however the needs it to, ie. pipefitter helper at home or SNF. Encouraged communication between pt and on tasks pt can or cannot do at home and what needs to assist with. Stressed the importance of maintaining structure, routine, and organization at home. IDT offered to create schedule for pt to carry on at home, if that is the DC plan. Suggested setting alarms on pt's iPad to eliminate nagging or giving constant verbal cues. Dtr still expressed concern with this being executed at home. SW encouraged dtr to allow this stay as a 'reset' and improve pts strength to allow more independence at home, but also to implement these new recommendations/strategies. Dtr and agreeable. Pt agreeable to adopt recommendations at home. SW encouraged to hire assistance to reduce caregiver burden. is agreeable to taking pt to [facility] for continued therapy. stated they had a bad experience with previous skilled [facility]. SW spoke to pt about that experience and assured that is not typical and can use another [facility] agency. expressed understanding. IDT continued to answered questions. Offered for family to ask questions at any time. SW to continue to follow for DC planning and support. Tiffanie Meyers, [email or web address]
[2022-03-03] MEDS: Ferrous Sulfate 325 MG Tablet PO (11:58)
[2022-03-03 12:20] LABS: Bedside Glucose 171 mg/dL (74-106)
--- NOTE | 2022-03-03 12:35 | CON.PCM_ITS ---
Assessment & Plan Assessment/Plan (1) Cellulitis of left toe: PLAN: Exam performed. Nails x10 were debrided in length and thickness bilaterally with nail nippers without incident. Slant back procedure performed to left lateral nail border. Some improvement noted upon debridement. At this time I believe I removed enough of the ingrown nail that it should resolve. We will follow-up on the patient in 1 week to ensure resolution if no resolution will consider partial nail avulsion on that site. Patient has left lower extremity foot drop and would benefit from a dropfoot ankle brace. We will plan to follow-up with the patient upon discharge for fitting of ankle brace to assist ambulation in this post CVA status. (2) Pain in left toe(s): (3) Tinea unguium: HPI Consult Data Date of Consult: 03/03/22 HPI Narrative Reason for Consultation: Nail care HPI Narrative: SHAISTA CLOUD, is a 81 M who presents ingrowing left lateral hallux toenail with thickening and dystrophic nail changes. Patient has history of stroke with left sided hemiparalysis and foot drop on that side. Patient notes pain and swelling to his left great toe present for several weeks after he stubbed it on the stair. Denies any other complaints at this time [facility] Medical History Absent pedal pulses Acute left-sided muscle weakness Depression Dysphagia Essential hypertension Facial droop due to acute stroke History of CVA (cerebrovascular accident) (12/2020) Hydrocele in adult Hyperlipidemia Normocytic normochromic anemia Osteoarthritis Peripheral vascular occlusive disease Proteinuria due to type 2 diabetes mellitus Recurrent inguinal hernia of right side without obstruction or gangrene Restless legs Right pontine CVA Right renal artery stenosis Skin lesion of face Type 2 diabetes mellitus Ventricular tachycardia seen on front desk monitor (02/20/21) Home Medications multivitamin,ku-[id number]-ylsfdthy (Complete Multivitamin tablet) 1 tab PO QDAY supplement 03/03/17 [History Last Taken 02/23/22] aspirin 81 mg chewable tablet 81 mg PO BREAKFAST heart health 01/02/21 [History Last Taken 02/24/22] Handicap Placard #1 ea 02/12/21 [Rx Last Taken Unknown] pen needle, diabetic 32 gauge x (BD Sanaz 2nd Gen Pen Needle) #50 ea 06/02/21 [Rx Last Taken Unknown] insulin glargine 100 unit/mL (3 mL) subcutaneous pen (Gabriela Ortega U-100 Insulin) 16 unit subcut DAILY Diabetes 02/16/22 [History Last Taken 02/24/22] metformin 500 mg tablet 500 mg PO DAILY DIABETES 02/16/22 [History Last Taken 02/24/22] Arthritis Pain Compound 1 click topical BID joint pain 02/24/22 [History Last Taken 02/23/22] carvedilol 25 mg tablet 25 mg PO BID heart 02/24/22 [History Last Taken 02/24/22] clopidogrel 75 mg tablet (Plavix) 75 mg PO DAILY blood thinner 02/24/22 [History Last Taken 02/23/22] doxazosin 8 mg tablet 8 mg PO QHS bph 02/24/22 [History Last Taken 02/23/22] ezetimibe 10 mg tablet (Zetia) 10 mg PO QHS cholesterol 02/24/22 [History Last Taken 02/23/22] ferrous sulfate 325 mg (65 mg iron) capsule,extended release 65 mg PO DAILY supplement 02/24/22 [History Last Taken 02/23/22] gabapentin 100 mg capsule 100 mg PO BID pain 02/24/22 [History Last Taken 02/24/22] gabapentin 300 mg capsule 300 mg PO 2100 pain 02/24/22 [History Last Taken 02/23/22] latanoprost 0.005 % eye drops 1 drp EACH EYE HS eyes 02/24/22 [History Last Taken 02/23/22] pramipexole 0.125 mg tablet 0.125 mg PO QHS parkinsons 02/24/22 [History Last Taken 02/23/22] sertraline 50 mg tablet 50 mg PO DAILY mood 02/24/22 [History Last Taken 02/24/22] acetaminophen 325 mg tablet (Tylenol) 650 mg PO Q6H PRN PRN Pain 1-10 Or Fever>100.7 #0 tabs 02/27/22 [Rx Last Taken Unknown] amlodipine 10 mg tablet 5 mg PO DAILY BP 02/27/22 [History Last Taken Unknown] amoxicillin 500 mg-potassium clavulanate 125 mg tablet (Augmentin) 1 tab PO BID Antibiotic 02/27/22 [History Last Taken Unknown] hydralazine 50 mg tablet 75 mg PO TID BP 02/27/22 [History Last Taken Unknown] insulin glargine-yfgn 100 unit/mL (3 mL) subcutaneous pen 20 unit subcut DAILY Diabetes 02/27/22 [History Last Taken Unknown] insulin lispro 100 unit/mL subcutaneous pen (Humalog KwikPen (U-100) Insulin) See Protocol subcut ACHS Diabetes 02/27/22 [History Last Taken Unknown] ipratropium 0.5 mg-albuterol 3 mg (2.5 mg base)/3 mL nebulization soln 3 ml inhalation Q6HWA.RT PRN SOB #0 mL 02/27/22 [Rx Last Taken Unknown] losartan 25 mg tablet 25 mg PO DAILY BP 02/27/22 [History Last Taken Unknown] sennosides 8.6 mg-docusate sodium 50 mg tablet (Stool Softener-Stimulant Laxative) 2 tab PO BID PRN PRN Constipation #0 tabs 02/27/22 [Rx Last Taken Unknown] Allergy/AdvReac Type Severity Reaction Status Date / Time meloxicam [From Mobic] Allergy Intermediate itching Verified 02/24/22 13:22 pravastatin [From Pravachol] AdvReac Mild myalgia Verified 02/24/22 13:22 cholestyramine AdvReac hypoglycemi Verified 02/24/22 13:22 a Family History Mother Hypertension Cancer Father Heart disease Diabetes Surgical History History of cataract surgery History of herniorrhaphy History of lumbar laminectomy History of stent insertion of renal artery (08/05/21) Status post laser cataract surgery of left eye Social History household members: spouse and other details: Abigail is his 's name housing: house number of children: 2 current occupational status: retired and other details: worked for [employer] prior to retiring leisure activities: other Smoking Status: Never smoker Electronic Cigarette Use: not used alcohol intake: former substance use type: does not use what type of physical activity do you participate in: walking frequency: 1-2 times per week Physical Exam Narrative Patient has hyperreflexia left lower extremity. Pulses are palpable 2 out of 4 to bilateral lower extremity dorsalis pedis and posterior tibial pulses cap refill time is brisk digital hair growth noted bilaterally. Muscular weakness noted to left lower extremity to be 4 out of 5 limited next dorsiflexion noted. Patient has ingrowing left lateral toenail with erythema edema and purulence. Pain to palpation to the site. Residual toenails 1 through 5 bilaterally elongated thickened dystrophic with subungual debris Lab / Micro Data Result Diagrams: 02/28/22 06:24 02/28/22 06:24 Labs: Laboratory Results - last 24 hr 03/02/22 16:04: POC Glucose 236 H 03/02/22 21:19: POC Glucose 326 H 03/03/22 00:39: POC Glucose 190 H 03/03/22 06:13: POC Glucose 172 H 03/03/22 11:58: POC Glucose 171 H Micro: Microbiology 03/03/22 05:55 Nasal Secretion SARS-CoV-2 Antigen (Rapid) - Final
[2022-03-03 17:05] LABS: Bedside Glucose 148 mg/dL (74-106)
[2022-03-03] MEDS: Gabapentin 300 MG Capsule PO (21:25)
[2022-03-03] MEDS: Ezetimibe 10 MG Tablet PO (21:29)
[2022-03-03] MEDS: Doxazosin 4 MG Tablet 8 MG PO (21:29)
[2022-03-03] MEDS: Pramipexole Di-HCl 0.125 MG Tablet PO (21:29)
[2022-03-03] MEDS: MELATONIN 10 MG TABLET PO (21:29)
[2022-03-03] MEDS: Latanoprost 0.005% 1 Bottle 1 DRP EACH EYE (21:30)
[2022-03-03 21:50] LABS: Bedside Glucose 187 mg/dL (74-106)
[2022-03-04] VITALS (8 sets, daily range): BP systolic 116–176; BP diastolic 45–68; PULSE 52–60; RESP 16–18; TEMP 36.2; O2SAT 94–96
[2022-03-04 06:40] LABS: Bedside Glucose 135 mg/dL (74-106)
[2022-03-04] MEDS: Senna/Docusate Sodium 1 Tablet 2 TABLET PO ×2 (06:51→17:47)
[2022-03-04] MEDS: amLODIPine 5 MG Tablet PO (06:51)
[2022-03-04] MEDS: Sertraline 50 MG Tablet PO (06:51)
[2022-03-04] MEDS: Clopidogrel Bisulfate 75 MG Tablet PO (06:51)
[2022-03-04] MEDS: Losartan Potassium 25 MG Tablet PO (06:52)
[2022-03-04] MEDS: hydrALAZINE 25 MG Tablet 75 MG PO ×2 (06:52→21:31)
[2022-03-04] MEDS: Carvedilol 25 MG Tablet PO ×2 (06:52→17:47)
[2022-03-04] MEDS: Insulin Glargine-YFGN 100 UNIT/ML Pen 30 UNIT SC (06:52)
[2022-03-04] MEDS: Insulin Lispro 100 UNIT/ML INSULN.PEN 10 UNIT SC ×3 (08:00→17:54)
[2022-03-04] MEDS: Aspirin 81 MG TAB.CHEW PO (08:01)
[2022-03-04] MEDS: Multivitamins,Ther W-Minerals Tablet 1 TABLET PO (08:02)
[2022-03-04] MEDS: Glucerna Shake 120 ML LIQUID PO ×3 (08:04→17:46)
--- NOTE | 2022-03-04 09:21 | MDS.RN ---
Pain interview for ISAAC 03/06/22.
[2022-03-04] MEDS: Gabapentin 100 MG Capsule PO ×2 (09:40→17:46)
[2022-03-04 11:30] LABS: Bedside Glucose 143 mg/dL (74-106)
[2022-03-04] MEDS: Ferrous Sulfate 325 MG Tablet PO (12:07)
[2022-03-04 16:16] LABS: Bedside Glucose 282 mg/dL (74-106)
[2022-03-04] MEDS: Gabapentin 300 MG Capsule PO (21:30)
[2022-03-04] MEDS: Doxazosin 4 MG Tablet 8 MG PO (21:32)
[2022-03-04] MEDS: MELATONIN 10 MG TABLET PO (21:32)
[2022-03-04] MEDS: Ezetimibe 10 MG Tablet PO (21:32)
[2022-03-04] MEDS: Latanoprost 0.005% 1 Bottle 1 DRP EACH EYE (21:33)
[2022-03-04] MEDS: Pramipexole Di-HCl 0.125 MG Tablet PO (21:33)
[2022-03-04 21:41] LABS: Bedside Glucose 150 mg/dL (74-106)
[2022-03-04] MEDS: 0.9% Saline Lock 10 ML Syringe IV (21:44)
[2022-03-05] MEDS: Sertraline 50 MG Tablet PO (06:12)
[2022-03-05] MEDS: Senna/Docusate Sodium 1 Tablet 2 TABLET PO ×2 (06:12→17:57)
[2022-03-05] MEDS: Losartan Potassium 25 MG Tablet PO (06:12)
[2022-03-05 06:13] VITALS: BP 128/48; PULSE 52
[2022-03-05] MEDS: Clopidogrel Bisulfate 75 MG Tablet PO (06:13)
[2022-03-05] MEDS: Carvedilol 25 MG Tablet PO ×2 (06:13→17:56)
[2022-03-05] MEDS: amLODIPine 5 MG Tablet PO (06:13)
[2022-03-05 06:35] LABS: Bedside Glucose 110 mg/dL (74-106)
[2022-03-05] MEDS: Glucerna Shake 120 ML LIQUID PO ×3 (08:19→17:55)
[2022-03-05] MEDS: Multivitamins,Ther W-Minerals Tablet 1 TABLET PO (08:20)
[2022-03-05] MEDS: Aspirin 81 MG TAB.CHEW PO (08:20)
[2022-03-05] MEDS: Gabapentin 100 MG Capsule PO ×2 (08:20→17:56)
[2022-03-05] MEDS: Insulin Lispro 100 UNIT/ML INSULN.PEN 10 UNIT SC ×3 (08:21→17:59)
[2022-03-05 11:25] LABS: Bedside Glucose 165 mg/dL (74-106)
[2022-03-05] MEDS: Ferrous Sulfate 325 MG Tablet PO (12:09)
[2022-03-05 13:09] VITALS: BP 140/55; PULSE 54; RESP 16; TEMP 36.1; O2SAT 94
--- NOTE | 2022-03-05 14:26 | CASEMGMT ---
Social Work BIMS () and PHQ-9 () completed for MDS assessment. Tiffanie Meyers MSW [employer]
[2022-03-05 15:09] VITALS: BP 136/52; PULSE 54
[2022-03-05] MEDS: hydrALAZINE 25 MG Tablet 75 MG PO ×2 (15:09→21:02)
--- NOTE | 2022-03-05 15:11 | CASEMGMT ---
Social Work Insurance issued LCD 03/09, DC 03/10. Spoke with to update. does not feel pt is ready to go home and if she can care for pt at this time. Explained appeal rights. electing to appeal. SW to coordinate HHC vs outpatient therapy if wants pt to go home. SW to continue to follow. Tiffanie Meyers, INFUSION NURSE TELEPHONE APPOINTMENT CLERK
--- NOTE | 2022-03-05 15:36 | CASEMGMT ---
Social Work [facility] notified this worker of appeal filed. . Medical records sent, per request. Will await outcome. CONCHA SchmittW
[2022-03-05 17:15] LABS: Bedside Glucose 169 mg/dL (74-106)
[2022-03-05 21:02] VITALS: BP 149/68; PULSE 60
[2022-03-05] MEDS: Doxazosin 4 MG Tablet 8 MG PO (21:03)
[2022-03-05] MEDS: Pramipexole Di-HCl 0.125 MG Tablet PO (21:03)
[2022-03-05] MEDS: MELATONIN 10 MG TABLET PO (21:03)
[2022-03-05] MEDS: Gabapentin 300 MG Capsule PO (21:07)
[2022-03-05] MEDS: Latanoprost 0.005% 1 Bottle 1 DRP EACH EYE (21:16)
[2022-03-05] MEDS: Ezetimibe 10 MG Tablet PO (21:16)
[2022-03-05 21:45] LABS: Bedside Glucose 196 mg/dL (74-106)
[2022-03-05 22:00] VITALS: PULSE 60; RESP 16; O2SAT 94
[2022-03-05] MEDS: Acetaminophen 500 MG Tablet 1000 MG PO (23:02)
[2022-03-06 05:47] VITALS: BP 124/50; PULSE 57
[2022-03-06] MEDS: Carvedilol 25 MG Tablet PO ×2 (05:47→17:28)
[2022-03-06] MEDS: amLODIPine 5 MG Tablet PO (05:47)
[2022-03-06] MEDS: Losartan Potassium 25 MG Tablet PO (05:47)
[2022-03-06] MEDS: Sertraline 50 MG Tablet PO (05:47)
[2022-03-06] MEDS: Clopidogrel Bisulfate 75 MG Tablet PO (05:47)
[2022-03-06] MEDS: Senna/Docusate Sodium 1 Tablet 2 TABLET PO (05:48)
[2022-03-06 06:26] LABS: Bedside Glucose 121 mg/dL (74-106)
[2022-03-06] MEDS: Glucerna Shake 120 ML LIQUID PO ×3 (08:37→17:25)
[2022-03-06] MEDS: Insulin Lispro 100 UNIT/ML INSULN.PEN 10 UNIT SC ×3 (08:38→17:28)
[2022-03-06] MEDS: Multivitamins,Ther W-Minerals Tablet 1 TABLET PO (08:40)
[2022-03-06] MEDS: Aspirin 81 MG TAB.CHEW PO (08:40)
[2022-03-06] MEDS: Gabapentin 100 MG Capsule PO ×2 (08:43→17:26)
[2022-03-06 09:55] VITALS: PULSE 55; RESP 18; O2SAT 97
[2022-03-06 11:55] LABS: Bedside Glucose 166 mg/dL (74-106)
[2022-03-06] MEDS: Ferrous Sulfate 325 MG Tablet PO (12:15)
[2022-03-06 12:16] VITALS: BP 144/58; PULSE 53; RESP 14; TEMP 36.2; O2SAT 93
[2022-03-06 14:42] VITALS: BP 146/52; PULSE 51
[2022-03-06] MEDS: hydrALAZINE 25 MG Tablet 75 MG PO (14:42)
[2022-03-06 16:00] VITALS: O2SAT 96
[2022-03-06 16:45] LABS: Bedside Glucose 110 mg/dL (74-106)
[2022-03-06] MEDS: 0.9% Saline Lock 10 ML Syringe IV (17:48)
[2022-03-06 20:58] VITALS: BP 126/48; PULSE 59
[2022-03-06] MEDS: Gabapentin 300 MG Capsule PO (21:03)
[2022-03-06] MEDS: MELATONIN 10 MG TABLET PO (21:04)
[2022-03-06] MEDS: Doxazosin 4 MG Tablet 8 MG PO (21:04)
[2022-03-06] MEDS: Pramipexole Di-HCl 0.125 MG Tablet PO (21:04)
[2022-03-06] MEDS: Ezetimibe 10 MG Tablet PO (21:04)
[2022-03-06] MEDS: Latanoprost 0.005% 1 Bottle 1 DRP EACH EYE (21:05)
--- NOTE | 2022-03-06 21:49 | NURSING ---
Blood sugar over 300 at bedtime, updated Dr. Jung. No new orders. Patient said his brought him cookies around dinner time.
[2022-03-06 22:00] LABS: Bedside Glucose 337 mg/dL (74-106)
[2022-03-07 06:28] VITALS: BP 148/58; PULSE 59
[2022-03-07] MEDS: hydrALAZINE 25 MG Tablet 75 MG PO ×2 (06:28→20:41)
[2022-03-07] MEDS: amLODIPine 5 MG Tablet PO (06:29)
[2022-03-07] MEDS: Clopidogrel Bisulfate 75 MG Tablet PO (06:29)
[2022-03-07] MEDS: Senna/Docusate Sodium 1 Tablet 2 TABLET PO (06:29)
[2022-03-07] MEDS: Losartan Potassium 25 MG Tablet PO (06:29)
[2022-03-07] MEDS: Sertraline 50 MG Tablet PO (06:29)
[2022-03-07] MEDS: Insulin Glargine-YFGN 100 UNIT/ML Pen 30 UNIT SC (06:35)
[2022-03-07 06:41] LABS: Bedside Glucose 171 mg/dL (74-106)
[2022-03-07 07:36] LABS: Absolute Lymphocyte Count 1.39 X10^3/uL (0.83-4.51); Absolute Neutrophil Count 5.7 X10^3/uL (2.0-7.7); Basophil# 0.06 X10^3/uL; Basophil% 0.7 % (0-1); Eosinophil# 0.71 X10^3/uL; Eosinophils% 7.9 % (0-5); Hemoglobin 8.2 g/dL (13.0-16.5); Lymphocyte # 1.39 X10^3/ul (0.83-4.51); Lymphocyte % 15.4 % (19-41); Mean Corp Hgb Conc 31.5 g/dL (32-36); Mean Corpuscular Hgb 29.1 pg (27.0-32.0); Mean Corpuscular Volume 92.2 fL (80-94); Mean Platelet Vol. 10.6 fl (6.2-12.0); Monocyte# 1.17 X10^3/uL; Monocyte% 12.9 % (0-10); NRBC Flagged by Analyzer 0 % (0-5); Neutrophil # 5.67 X10^3/uL (2.7-7.7); Neutrophil % 62.7 % (47-70); Platelet Count 352 K/mm3 (150-450); RBC Distribution Width CV 13.8 % (11.6-14.6); RBC Distribution Width SD 46.6 fl (35.1-43.9); Red Blood Count 2.82 M/mm3 (4.6-6.2)
[2022-03-07 07:52] LABS: Anion Gap 5 (5-15); BUN 41 mg/dL (7-18); Calcium,Total 8.6 mg/dL (8.5-10.1); Chloride 103 mmol/L (98-107); Creatinine, Serum 1.64 mg/dL (0.70-1.30); EST Glomerular Filtration Rate 43 mL/min (>60); Est Glom Filt Rate - Afr Amer 52 mL/min (>60); Estimated Creatinine Clearance 38.12 ml/min; Glucose 180 mg/dL (74-106); Potassium 4.4 mmol/L (3.5-5.1); Sodium Level 137 mmol/L (136-145)
[2022-03-07] MEDS: Multivitamins,Ther W-Minerals Tablet 1 TABLET PO (08:12)
[2022-03-07] MEDS: Aspirin 81 MG TAB.CHEW PO (08:12)
[2022-03-07] MEDS: Insulin Lispro 100 UNIT/ML INSULN.PEN 10 UNIT SC ×3 (08:12→18:26)
[2022-03-07] MEDS: Glucerna Shake 120 ML LIQUID PO ×3 (08:12→18:24)
[2022-03-07] MEDS: Carvedilol 25 MG Tablet PO ×2 (08:12→18:24)
[2022-03-07] MEDS: Gabapentin 100 MG Capsule PO ×2 (09:05→18:24)
[2022-03-07] MEDS: Tuberculin,Purif.prot.deriv. 50 TU/ML Vial 0.1 ML ID (10:44)
[2022-03-07 11:21] LABS: Bedside Glucose 169 mg/dL (74-106)
[2022-03-07] MEDS: Ferrous Sulfate 325 MG Tablet PO (11:54)
[2022-03-07 13:30] VITALS: BP 126/48; PULSE 57
[2022-03-07 16:00] VITALS: BP 126/50; PULSE 56; RESP 16; TEMP 37.1; O2SAT 95
[2022-03-07 16:45] LABS: Bedside Glucose 111 mg/dL (74-106)
[2022-03-07] MEDS: 0.9% Saline Lock 10 ML Syringe IV (18:30)
[2022-03-07] MEDS: MELATONIN 10 MG TABLET PO (20:40)
[2022-03-07 20:41] VITALS: BP 142/72; PULSE 55
[2022-03-07] MEDS: Gabapentin 300 MG Capsule PO (20:41)
[2022-03-07] MEDS: Doxazosin 4 MG Tablet 8 MG PO (20:42)
[2022-03-07] MEDS: Latanoprost 0.005% 1 Bottle 1 DRP EACH EYE (20:43)
[2022-03-07] MEDS: Pramipexole Di-HCl 0.125 MG Tablet PO (20:43)
[2022-03-07] MEDS: Ezetimibe 10 MG Tablet PO (20:44)
[2022-03-07 21:05] VITALS: PULSE 57; RESP 18; O2SAT 95
[2022-03-07 21:26] LABS: Bedside Glucose 208 mg/dL (74-106)
[2022-03-08] VITALS (7 sets, daily range): BP systolic 113–173; BP diastolic 52–60; PULSE 55–60; RESP 16; TEMP 36.6; O2SAT 95
[2022-03-08] MEDS: Clopidogrel Bisulfate 75 MG Tablet PO (06:01)
[2022-03-08] MEDS: Losartan Potassium 25 MG Tablet PO (06:01)
[2022-03-08] MEDS: hydrALAZINE 25 MG Tablet 75 MG PO ×3 (06:02→21:01)
[2022-03-08] MEDS: amLODIPine 5 MG Tablet PO (06:02)
[2022-03-08] MEDS: Sertraline 50 MG Tablet PO (06:02)
[2022-03-08] MEDS: Senna/Docusate Sodium 1 Tablet 2 TABLET PO ×2 (06:03→18:02)
[2022-03-08] MEDS: Insulin Glargine-YFGN 100 UNIT/ML Pen 30 UNIT SC (06:04)
[2022-03-08] MEDS: 0.9% Saline Lock 10 ML Syringe IV (06:08)
[2022-03-08 06:26] LABS: Bedside Glucose 139 mg/dL (74-106)
[2022-03-08] MEDS: Glucerna Shake 120 ML LIQUID PO ×3 (08:28→18:01)
[2022-03-08] MEDS: Gabapentin 100 MG Capsule PO ×2 (08:28→18:04)
[2022-03-08] MEDS: Multivitamins,Ther W-Minerals Tablet 1 TABLET PO (08:29)
[2022-03-08] MEDS: Carvedilol 25 MG Tablet PO ×2 (08:30→18:06)
[2022-03-08] MEDS: Aspirin 81 MG TAB.CHEW PO (08:30)
[2022-03-08] MEDS: Insulin Lispro 100 UNIT/ML INSULN.PEN 10 UNIT SC ×3 (08:33→18:04)
--- NOTE | 2022-03-08 09:08 | NURSING ---
Mat Machine Tender Note; MDS for 03/06/2022 Complete
[2022-03-08 11:25] LABS: Bedside Glucose 151 mg/dL (74-106)
[2022-03-08] MEDS: Ferrous Sulfate 325 MG Tablet PO (12:11)
[2022-03-08 17:05] LABS: Bedside Glucose 96 mg/dL (74-106)
[2022-03-08] MEDS: Gabapentin 300 MG Capsule PO (21:01)
[2022-03-08] MEDS: Ezetimibe 10 MG Tablet PO (21:02)
[2022-03-08] MEDS: Doxazosin 4 MG Tablet 8 MG PO (21:02)
[2022-03-08] MEDS: Pramipexole Di-HCl 0.125 MG Tablet PO (21:02)
[2022-03-08] MEDS: MELATONIN 10 MG TABLET PO (21:02)
[2022-03-08] MEDS: Latanoprost 0.005% 1 Bottle 1 DRP EACH EYE (21:03)
[2022-03-08 21:41] LABS: Bedside Glucose 195 mg/dL (74-106)
[2022-03-09] MEDS: Sertraline 50 MG Tablet PO (05:13)
[2022-03-09] MEDS: Senna/Docusate Sodium 1 Tablet 2 TABLET PO (05:13)
[2022-03-09] MEDS: amLODIPine 5 MG Tablet PO (05:14)
[2022-03-09] MEDS: Losartan Potassium 25 MG Tablet PO (05:14)
[2022-03-09] MEDS: Clopidogrel Bisulfate 75 MG Tablet PO (05:14)
[2022-03-09 05:15] VITALS: BP 186/61; PULSE 60
[2022-03-09] MEDS: hydrALAZINE 25 MG Tablet 75 MG PO ×2 (05:15→22:23)
[2022-03-09 06:40] LABS: Bedside Glucose 153 mg/dL (74-106)
[2022-03-09] MEDS: Carvedilol 25 MG Tablet PO ×2 (07:56→17:51)
[2022-03-09] MEDS: Multivitamins,Ther W-Minerals Tablet 1 TABLET PO (07:56)
[2022-03-09] MEDS: Insulin Lispro 100 UNIT/ML INSULN.PEN 10 UNIT SC ×3 (07:57→17:49)
[2022-03-09] MEDS: Insulin Glargine-YFGN 100 UNIT/ML Pen 30 UNIT SC (07:57)
[2022-03-09] MEDS: Aspirin 81 MG TAB.CHEW PO (07:58)
[2022-03-09] MEDS: Glucerna Shake 120 ML LIQUID PO ×3 (08:04→17:56)
[2022-03-09] MEDS: Gabapentin 100 MG Capsule PO ×2 (08:05→17:56)
--- NOTE | 2022-03-09 08:05 | PCM.DC.SUM ---
Providers Date of Admission: 02/27/22 Primary Care Physician: Dr. Jennifer Watt MD Consultations 03/01/22 12:44 Consult: Podiatry Routine Consulting Provider: Butch Delgado Reason for Consult: Left ingrown toenail. EMERGENT Consult: No MD Notified: Yes Date Notified: 03/03/22 Time Notified: 12:20 Method of Notification: Answering Service Reason For Visit: FALLS Diagnosis Discharge Diagnosis (1) Cellulitis of left toe: Status: Acute Code(s): L03.032 - Cellulitis of left toe (2) Pain in left toe(s): Status: Acute Code(s): M79.675 - Pain in left toe(s) (3) Tinea unguium: Status: Acute Code(s): B35.1 - Tinea unguium (4) Debility: Status: Acute Code(s): R53.81 - Other malaise (5) Fall: Status: Acute Code(s): W19.XXXA - Unspecified fall, initial encounter (6) Aspiration pneumonia: Status: Acute Code(s): J69.0 - Pneumonitis due to inhalation of food and vomit (7) Acute kidney injury: Status: Acute Code(s): N17.9 - Acute kidney failure, unspecified (8) Dehydration: Status: Acute Code(s): E86.0 - Dehydration (9) Right-sided cerebrovascular accident (CVA): Status: Acute Code(s): I63.9 - Cerebral infarction, unspecified (10) Left hemiparesis: Status: Acute Code(s): G81.94 - Hemiplegia, unspecified affecting left nondominant side (11) Diabetes mellitus: Status: Acute Code(s): E11.9 - Type 2 diabetes mellitus without complications (12) Glaucoma: Status: Acute Code(s): H40.9 - Unspecified glaucoma (13) BPH (benign prostatic hyperplasia): Status: Acute Code(s): N40.0 - Benign prostatic hyperplasia without lower urinary tract symptoms (14) Restless leg syndrome: Status: Acute Code(s): G25.81 - Restless legs syndrome (15) Coronary artery disease: Status: Acute Code(s): I25.10 - Atherosclerotic heart disease of [place] coronary artery without angina pectoris (16) Hyperlipidemia: Status: Acute Code(s): E78.5 - Hyperlipidemia, unspecified (17) Depression: Status: Acute Code(s): F32.A - Depression, unspecified (18) Hypertension: Status: Chronic Code(s): I10 - Essential (primary) hypertension (19) Chronic anemia: Status: Chronic Code(s): D64.9 - Anemia, unspecified Plan 81 year old male with below past medical history hospitalized for aspiration pneumonia, complicated by acute kidney injury, dehydration, admitted to TCU with debility, here for rehabilitation, strengthening, prior to discharge home with family. Debility - PT/OT. Pain - Tylenol 1000mg q6h prn pain (1-10), Arthritis pain compound 1 click topical bid prn. Bowel - senna/colace 2 tablets bid, Dulcolax 10mg pr daily prn. Adult immunization - Administer pneumonia vaccine, covid19 vaccine, flu vaccine. DVT prophylaxis - Hold, on dual antiplatelet therapy. Hypertension - Coreg 25mg bid, Losartan 25mg daily, Amlodipine 5mg daily, Hydralazine 75mg tid. Aspiration pneumonia - Augmentin 500mg bid thru 03/03/2022. Stroke - Aspirin 81mg daily, Plavix 75mg daily. BPH - Doxazosin 8mg qhs. Hyperlipidemia - Zetia 10mg qhs. Iron deficiency anemia - Ferrous sulfate 325mg daily. Neuropathic pain - Gabapentin 100mg bidcm, 300mg 2100. Diabetes Mellitus II - Glargine 30 units daily, Lispro 10 units with meals. Shortness of breath - Duoneb 3ml q6h prn. Glaucoma - Latanoprost 0.005% 1gtt ou qhs. Nutrition - MVI daily. Restless leg syndrome - Mirapex 0.125mg qhs. 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 Medications at Discharge Home Medications multivitamin,[id number]-efsy-pdhkytwe (Complete Multivitamin tablet) 1 tab PO QDAY supplement 03/03/17 aspirin 81 mg chewable tablet 81 mg PO BREAKFAST heart health 01/02/21 Handicap Placard #1 ea 02/12/21 pen needle, diabetic 32 gauge x 5/32 (BD Sanaz 2nd Gen Pen Needle) #50 ea 06/02/21 carvedilol 25 mg tablet 25 mg PO BID heart 02/24/22 clopidogrel 75 mg tablet (Plavix) 75 mg PO DAILY blood thinner 02/24/22 doxazosin 8 mg tablet 8 mg PO QHS bph 02/24/22 ezetimibe 10 mg tablet (Zetia) 10 mg PO QHS cholesterol 02/24/22 ferrous sulfate 325 mg (65 mg iron) capsule,extended release 65 mg PO DAILY supplement 02/24/22 gabapentin 100 mg capsule 100 mg PO BID pain 02/24/22 gabapentin 300 mg capsule 300 mg PO 2100 pain 02/24/22 latanoprost 0.005 % eye drops 1 drp EACH EYE HS eyes 02/24/22 pramipexole 0.125 mg tablet 0.125 mg PO QHS parkinsons 02/24/22 sertraline 50 mg tablet 50 mg PO DAILY mood 02/24/22 sennosides 8.6 mg-docusate sodium 50 mg tablet (Stool Softener-Stimulant Laxative) 2 tab PO BID PRN PRN Constipation #0 tabs 02/27/22 acetaminophen 500 mg tablet 1,000 mg PO Q6H PRN PRN Pain Score 1-10 #0 tabs 03/09/22 amlodipine 5 mg tablet 5 mg PO DAILY 30 days #30 tabs 03/09/22 hydralazine 25 mg tablet 75 mg PO TID 30 days #270 tabs 03/09/22 insulin glargine-yfgn 100 unit/mL (3 mL) subcutaneous pen 30 unit (0.3 mL) subcut DAILY 30 days #9 mL 03/09/22 insulin lispro 100 unit/mL subcutaneous pen (Humalog KwikPen (U-100) Insulin) 10 unit (0.1 mL) subcut TIDAC 30 days #9 mL 03/09/22 losartan 25 mg tablet 25 mg PO DAILY 30 days #30 tabs 03/09/22 melatonin 10 mg sublingual tablet 10 mg PO QHS #0 tabs 03/09/22 Hospital Course Operations None Procedures None Summary of Care Provided Minutes Spent on Discharge: 35 Hospital Course: 81 year old male with below past medical history hospitalized for aspiration pneumonia, complicated by acute kidney injury, dehydration, admitted to TCU with debility, here for rehabilitation, strengthening, prior to discharge home with family. Discharge home with 03/10/2022, [facility] PT/OT/ST. Physical Exam Const alert General Appearance: cooperative HEENT normocephalic Eyes PERRL and EOMs intact bilaterally Neck supple, no JVD and no carotid bruits Resp normal respiratory effort, normal air movement and clear to auscultation bilaterally Cardio regular rate and regular rhythm GI normal to inspection, nondistended, normoactive bowel sounds, non-tender and non-distended Extremity normal capillary refill General Extremity: Negative for edema Skin no rashes or lesions noted General Skin Exam: no breakdown Psych affect normal Appearance: appropriate Weight / BMI Weight Weight: 82.826 kg Body Mass Index (BMI) 25.0 ABG / Lab / Microbiology Data Result Diagrams: 03/07/22 07:05 03/07/22 07:05 Laboratory: Laboratory Results - last 24 hr 03/08/22 10:58: POC Glucose 151 H 03/08/22 16:45: POC Glucose 96 03/08/22 21:08: POC Glucose 195 H 03/09/22 05:57: POC Glucose 153 H Microbiology: Microbiology 03/03/22 05:55 Nasal Secretion SARS-CoV-2 Antigen (Rapid) - Final 03/01/22 05:39 Nasal Secretion SARS-CoV-2 Antigen (Rapid) - Final D/C Instructions Discharge Diet: No restrictions Discharge Activity: Return to Normal Activity, May Shower and Use Walker Weight Bearing Status: Weight bearing as tolerated Call your doctor if you observe: Fever of 101 or Higher, Inability to urinate, Inability to have a bowel movement, Shortness of breath, Dizziness, Fainting spells, Swelling in the ankles, Chest pain and Uncontrolled pain Additional Instructions: Discharge home with 03/10/2022, [facility] PT/OT/ST. Meaningful Use Info Meaningful Use Diagnoses (Choose all that apply): None applicable Discharge Plan Admission Admit Date/Time: 02/27/22 15:35 Primary Reason for Your Visit: Debility. Attending Provider: Johnathan Huffman Chi Primary Care Provider: Jennifer Watt Consulting Providers: Butch Delgado Instructions Additional Instructions / Restrictions: Discharge home with 03/10/2022, [facility] PT/OT/ST. Discharge Orders/Prescriptions Prescriptions: New hydralazine 25 mg Tablet 75 mg PO TID 30 Days Qty: 270 0RF amlodipine 5 mg Tablet 5 mg PO DAILY 30 Days Qty: 30 0RF acetaminophen 500 mg Tablet 1,000 mg PO Q6H PRN PRN (Reason: Pain Score 1-10) Qty: 0 0RF losartan 25 mg Tablet 25 mg PO DAILY 30 Days Qty: 30 0RF melatonin 10 mg Tablet, Sublingual 10 mg PO QHS Qty: 0 0RF insulin glargine-yfgn 100 unit/mL (3 mL) Insulin Pen 30 unit subcut DAILY 30 Days Qty: 9 0RF insulin lispro [Humalog KwikPen Insulin] 100 unit/mL Insulin Pen 10 unit subcut TIDAC 30 Days Qty: 9 0RF Continued multivitamin,pq-onnz-lkqtcnjp tablet tablet 1 tab PO QDAY aspirin 81 mg tablet,chewable 81 mg PO BREAKFAST ferrous sulfate 325 mg (65 mg iron) Capsule, Extended Release 65 mg PO DAILY latanoprost 0.005 % drops 1 drp EACH EYE HS carvedilol 25 mg tablet 25 mg PO BID Rx Instructions: must administer with a meal/food clopidogrel [Plavix] 75 mg tablet 75 mg PO DAILY doxazosin 8 mg tablet 8 mg PO QHS pramipexole 0.125 mg tablet 0.125 mg PO QHS gabapentin 300 mg capsule 300 mg PO 2100 gabapentin 100 mg capsule 100 mg PO BID sertraline 50 mg tablet 50 mg PO DAILY ezetimibe [Zetia] 10 mg tablet 10 mg PO QHS Rx Instructions: take at bedtime sennosides-docusate sodium [Stool Softener-Stimulant Laxat] 8.6-50 mg Tablet 2 tab PO BID PRN PRN (Reason: Constipation) Qty: 0 0RF Discontinued metformin 500 mg tablet 500 mg PO DAILY Hold Instructions: Hold until creatinine clearance more than 50 ml/min insulin glargine [Basaglar KwikPen U-100 Insulin] 100 unit/mL (3 mL) insulin pen 16 unit SUBCUT DAILY Arthritis Pain Compound 1 click topical BID acetaminophen [Tylenol] 325 mg Tablet 650 mg PO Q6H PRN PRN (Reason: Pain 1-10 Or Fever>100.7) Qty: 0 0RF ipratropium-albuterol 0.5 mg-3 mg(2.5 mg base)/3 mL Solution For Nebulization 3 ml inhalation Q6HWA.RT PRN (Reason: SOB) Qty: 0 0RF amlodipine 10 mg tablet 5 mg PO DAILY losartan 25 mg tablet 25 mg PO DAILY Rx Instructions: Uptitrate as tolerated by kidney function hydralazine 50 mg tablet 75 mg PO TID Rx Instructions: Hold for SBP less than 130 mmHg amoxicillin-pot clavulanate [Augmentin] 500-125 mg tablet 1 tab PO BID insulin lispro [Humalog KwikPen Insulin] 100 unit/mL insulin pen See Protocol subcut [facility] Protocol: 3. Sliding Scale Insulin Med Dosing Condition: 150-189 mg/dl = 1 unit Condition: 190-229 mg/dl = 2 units Condition: 230-269 mg/dl = 3 units Condition: 270-309 mg/dl = 4 units Condition: 310-349 mg/dl = 5 units Condition: 350-399 mg/dl = 6 units Condition: 400-449 mg/dl = 7 units Condition: Greater than 449 call physician Protocol Text: - Use for Total Daily Dose of Insulin 37-55 units - Obsese, infected, or steroid patients MEDIUM DOSING ALGORITHIM insulin glargine-yfgn 100 unit/mL (3 mL) insulin pen 20 unit subcut DAILY Rx Instructions: Hold if glucose less than 130 mg/dl No Action (DME) Handicap Placard See Rx Instructions .Route .MEDSUPPLY Qty: 1 0RF Rx Instructions: Length of time: 5 years (DME) pen needle, diabetic [BD Sanaz 2nd Gen Pen Needle] 32 gauge x 5/32 needle See Rx Instructions .ROUTE .MEDSUPPLY Qty: 50 2RF Rx Instructions: use once daily to adminster insulin as directed. Referrals / Follow Up: Jennifer Watt MD [Primary Care Provider] - Disposition Disposition (needs filled in before D/C Order can be placed): Home, Self Care
--- NOTE | 2022-03-09 09:32 | CASEMGMT ---
Social Work Patient lost appeal with last cover day to continue to be 03/09/2022 and patient responsibility to begin on 03/10/2022. This hospice social worker met with patient in room. Patient reports to be aware that patient lost appeal and plans to discharge to home with spouse on 03/10/2022. This hospice social worker inquired about continued therapy services, per therapy recommendation is for patient to continue with therapy either home health or outpatient services. Patient states plan to follow up with [facility] for outpatient therapy PT/OT/[facility]. Patient agreeable to this hospice social worker contact patient spouse to confirm all discharge planning. Telephone call to patient spouse, Abigail. Abigail confirms above discharge plan. Abigail states to have had a bad experience with home health services in the past and is not interested in home health care. Abigail request for order to [facility] to be provided to Abigail as not sure when we will be able to set up therapy due to the weather. This hospice social worker encouraged Abigail to reconsider home health care, Abigail declines this option. Social work to assist in facilitating order for outpatient PT/OT/[facility] to [facility] to be provided to patient/Abigail at time of discharge. Abigail plans to provide transportation. Abigail reports that patient has all needed DME in the home. Abigail reports to have no other questions/concerns on patient returning to the community. Proposed discharge date: 03/10/2022 PLAN: Home with spouse and outpatient therapy. Benjamin KERN, ELOY
[2022-03-09 10:55] LABS: Bedside Glucose 211 mg/dL (74-106)
[2022-03-09] MEDS: Ferrous Sulfate 325 MG Tablet PO (12:26)
[2022-03-09 14:13] VITALS: BP 130/41; PULSE 57; RESP 18; TEMP 36.3
[2022-03-09 16:18] VITALS: BP 130/41; PULSE 57
[2022-03-09 17:05] LABS: Bedside Glucose 113 mg/dL (74-106)
[2022-03-09 22:00] VITALS: PULSE 60; RESP 16; O2SAT 92
[2022-03-09 22:15] LABS: Bedside Glucose 135 mg/dL (74-106)
[2022-03-09] MEDS: Gabapentin 300 MG Capsule PO (22:18)
[2022-03-09] MEDS: Latanoprost 0.005% 1 Bottle 1 DRP EACH EYE (22:22)
[2022-03-09 22:23] VITALS: BP 167/61; PULSE 60
[2022-03-09] MEDS: Ezetimibe 10 MG Tablet PO (22:24)
[2022-03-09] MEDS: Pramipexole Di-HCl 0.125 MG Tablet PO (22:24)
[2022-03-09] MEDS: Doxazosin 4 MG Tablet 8 MG PO (22:24)
[2022-03-09] MEDS: MELATONIN 10 MG TABLET PO (22:24)
[2022-03-10 05:37] VITALS: BP 158/61; PULSE 55
[2022-03-10] MEDS: Senna/Docusate Sodium 1 Tablet 2 TABLET PO (05:37)
[2022-03-10] MEDS: Losartan Potassium 25 MG Tablet PO (05:37)
[2022-03-10] MEDS: amLODIPine 5 MG Tablet PO (05:37)
[2022-03-10] MEDS: Sertraline 50 MG Tablet PO (05:37)
[2022-03-10] MEDS: hydrALAZINE 25 MG Tablet 75 MG PO (05:37)
[2022-03-10] MEDS: Clopidogrel Bisulfate 75 MG Tablet PO (05:37)
[2022-03-10] MEDS: Insulin Glargine-YFGN 100 UNIT/ML Pen 30 UNIT SC (06:27)
--- NOTE | 2022-03-10 06:46 | MDS.RN ---
Information for the mds was obtained from review of the clinical record, interview of resident, staff, and direct observation of resident's care.
[2022-03-10 06:55] LABS: Bedside Glucose 132 mg/dL (74-106)
[2022-03-10] MEDS: Glucerna Shake 120 ML LIQUID PO (07:52)
[2022-03-10] MEDS: Gabapentin 100 MG Capsule PO (07:53)
[2022-03-10] MEDS: Carvedilol 25 MG Tablet PO (07:53)
[2022-03-10] MEDS: Aspirin 81 MG TAB.CHEW PO (07:54)
[2022-03-10] MEDS: Multivitamins,Ther W-Minerals Tablet 1 TABLET PO (07:54)
[2022-03-10] MEDS: Insulin Lispro 100 UNIT/ML INSULN.PEN 10 UNIT SC (07:54)
[2022-03-10 10:00] VITALS: PULSE 60; RESP 18; O2SAT 95
[2022-03-10 11:45] VITALS: BP 130/51; PULSE 60; RESP 18; TEMP 36.8; O2SAT 95
== END 2022-03-10 11:45 | disposition home or self-care (01) | DRG 178 ==
PROVIDERS: Admitting Provider Family Medicine Geriatric Medicine; PCP Internal Medicine; Visit Provider Family Medicine Geriatric Medicine
DX: J69.0 Pneumonitis due to inhalation of food and vomit (principal); G81.94 Hemiplegia, unspecified affecting left nondominant side; E11.40 Type 2 diabetes mellitus with diabetic neuropathy, unspecified; E11.39 Type 2 diabetes mellitus with other diabetic ophthalmic complication; D50.9 Iron deficiency anemia, unspecified; B35.1 Tinea unguium; E11.51 Type 2 diabetes mellitus with diabetic peripheral angiopathy without gangrene; Z79.4 Long term (current) use of insulin; G25.81 Restless legs syndrome; E78.5 Hyperlipidemia, unspecified; I25.10 Atherosclerotic heart disease of native coronary artery without angina pectoris; I10 Essential (primary) hypertension; I69.392 Facial weakness following cerebral infarction; L60.0 Ingrowing nail; M21.372 Foot drop, left foot; H40.9 Unspecified glaucoma; Z79.82 Long term (current) use of aspirin; Z79.02 Long term (current) use of antithrombotics/antiplatelets; N40.0 Benign prostatic hyperplasia without lower urinary tract symptoms; Z79.899 Other long term (current) drug therapy; F32.A Depression, unspecified; L03.032 Cellulitis of left toe
CPT/HCPCS: 36415; 80048; 82962; 85025; 87426; 87811; 92526; 92610; 94640; 97110; 97116; 97162; 97166; 97530; 97535; 97802; A4216

== ENCOUNTER 2022-03-22 13:51 | Outpatient (RCR) | payer MEDICARE, SELFPAY ==
--- NOTE | 2022-03-22 17:30 | ST ---
[facility] Speech Pathology [address] [place] [address] Modified Barium Swallow Study MR#: [id number] Acct: [id number] Name: FRANCISCO CLOUD Rep #: [id number] : 1940 81 From: Aaliyah Ratliff M.A., [facility] Modified Barium Swallow - Patient Information Study Date: 02/18/22 Study Time: 09:00 Direct Billable Minutes: 110 Total Minutes procedure & reportin Diagnosis: Aspiration Pneumonia (J69.0) Referring Physician: Amalia Aguila Reason for Referral: Objectively assess swallow function, risk for aspiration, and determine recommendations for least restrictive diet textures and compensatory strategies to improve safety of swallow. Medical History: Francisco Cloud is a 81 M who presented to [facility] 02/16/2022 after CVA follow-up at the hospital. As he was going home, he became dizzy, slumped backwards, and had poor responsiveness - rapid response was called. Pt was sent to ED, although he was reluctant at first. 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 Cough is nonproductive. Admitting chest x-ray showed bibasilar atelectasis and right lower lung infiltrate. He was admitted for management of hypotension, along with other comorbidities, including suspected aspiration PNA. He was seen by ST 02/17/2022 for BSE and recommended for regular textures / thin liquids - distant supervision. He was additionally recommended for MBSS to assess concern for aspiration due to current aspiration PNA and hx of aspiration of thin liquids. 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 He was seen by ST on inpatient rehab from 01/03/2021-01/27/2021 for dysphagia therapy with MBSS revealing aspiration of thin liquids and recommending Minced and moist textures / Thin liquids. Pt discharged home on this diet and was recommended for ST, which the patient did follow through with. Repeat MBSS completed 02/26/2021 recommended Soft and Bite Size textures (IDDSI Level 6), Thin Liquids; Compensatory Strategies: Small Bites, Small Sips, No Straws, Slow Rate - One bite/sip at a time, Multiple Swallows - Consider use of intermittent double swallows during meals due to mild oral and pharyngeal residues present during study., Sitting upright, Assist with verbal cues to use recommended strategies; Supervision: Assist as needed. Dentition: Natural Teeth Mental Status: WNL Respiratory Status: Oxygenating on 2L/M nasal cannula - Penetration-Aspiration Scale Penetration-Aspiration Scale: OBJECTIVE ASSESSMENT OF SWALLOW FUNCTION (QUANTITATIVE ? PER TRIAL): PENETRATION / ASPIRATION SCALE (DUMONT): 1 = does not enter airway 2 = enters airway/above vocal folds/ejected 3 = enters airway/above vocal folds/not ejected 4 = enters airway/contacts vocal folds/ejected 5 = enters airway/contacts vocal folds/not ejected 6 = enters airway/below vocal folds/ejected 7 = enters airway/below vocal folds/not ejected despite effort 8 = enters airway/below vocal folds/no effort VIDEOFLOROSCOPIC SCALE SCORE (DUMONT): Grade I = aspiration of material that has penetrated into the laryngeal vestibule, intact cough reflex Grade II = aspiration < 10 % of the bolus, intact cough reflex Grade III = aspiration of < 10 % of the bolus, reduced cough reflex or aspiration of > 10 % of the bolus, intact cough reflex Grade IV = aspiration of > 10 % of the bolus, reduced cough reflex - Penetration-Aspiration Scale Score Thin Liquid via teaspoon Result: 1= does not enter airway Thin Liquid via teaspoon Trial 2 Result: 1= does not enter airway Thin Liquid via large single sip from cup Result: 7= enters airways/below vocal folds/not ejected despite effort - delayed, throat clear - ineffective at clearing aspirated contrast Thin Liquid via small single sip from cup Result: 1= does not enter airway Lund Thick Liquid via small single sip from cup Result: 1= does not enter airway Honey Thick Liquid via small single sip from cup Result: 1= does not enter airway Pudding via teaspoon with esophageal screen Result: 1= does not enter airway 1/2 Cookie Result: 1= does not enter airway Thin Liquid via small single sip from cup Trial 2 Result: 2= enter airway/above vocal folds/ejected Thin Liquid via small single sip from cup Effortful swallow Result: 1= does not enter airway - Oral Phase Labial Seal: No Labial Escape Tongue Control During Bolus Hold: Posterior escape of greater than half of bolus Bolus Preparation/Mastication: Slow prolonged chewing/mashing with complete recollection Bolus Transport/Lingual Motion: Slowed tongue motion Oral Residue: Trace residue lining oral structures - Pharyngeal Phase Initiation of Pharyngeal Swallow: Bolus head in pyriforms Soft Palate Elevation: No bolus between soft palate and pharyngeal wall Laryngeal Elevation: Partial superior movement thyroid cart/partial apprx aryt-epig petiole Anterior Hyoid Excursion: Partial anterior movement Epiglottic Movement: Complete inversion Laryngeal Vestibule Closure at Height of Swallow: Incomplete; narrow column of air/contrast in laryngeal vestibule Pharyngeal Stripping Wave: Present - complete Pharyngoesophageal Segment Opening: Parital distension and partial duration; parital obstruction of flow Tongue Base Retraction: Narrow column of contrast between tongue base & post. pharyngeal wall Pharyngeal Residue: Minimal to no pharyngeal clearance - Esophageal Phase Esophageal Clearance: Complete clearance - Treatment Strategies Effects of treatment strategies attemped:: Decreased bolus size = effective. Effortful swallow = effective. - Diagnosis/Impression Diagnosis: Mild oropharyngeal phase dysphagia (R13.12) Impression: The oral phase is primarily marked by... -Decreased bolus control with >1/2 of the bolus spilling posteriorly to the pyriforms prior to swallow onset observed with thin liquid trials. -Slowed tongue motion for A-P transport. -Prolonged, but adequate mastication of cookie with trace oral residues. The pharyngeal phase is primarily marked by... -Delayed swallow onset with thin liquids. -Decreased airway closure during the swallow due to decreased anterior hyoid excursion and decreased laryngeal elevation. -Mildly decreased tongue base retraction and UES opening/duration with resulting trace-mild pharyngeal residues after the swallow. -Aspiration of large sips of thin liquids by cup - weak throat clear in response to aspiration. Trace laryngeal penetration of small sip of thin liquids via cup, which did fully eject from the laryngeal vestibule after the swallow. Use of decreased bolus size and effortful swallow was most effective in decreasing risk for aspiration. The esophageal phase is primarily marked by... -Small CP bar present at the level of C-4, which did not appear to impact bolus clearance through the UES. - Recommendations Diet: Regular Textures, Thin Liquids Comment: medications whole in puree Compensatory Strategies: Small Bites, Small Sips - effortful swallows with liquids, No Straws, Slow Rate, Sitting upright, Remain sitting upright for 30 minutes after PO intake Supervision: 1:1 Close Supervision Recommend Repeat Modified Barium Swallow: TBD Need for Skilled Speech Therapy Services: Yes Comment: Will recommend the patient for dysphagia therapy to address deficits in oropharyngeal swallow function. Will recommend the patient for oropharyngeal strengthening to improve tongue base retraction, laryngeal elevation, hyoid excursion, and lingual control (Eboni, CTAR, Arianna, effortful, lingual resistance). The patient would benefit from thorough education regarding diet recommendations and recommended compensatory strategies. Education Completed: 1. Described result of evaluation., 2. Pt understands evaluation & agrees with goals and treatment plan., 4. Family/caregivers understand evaluation & agree w/ goals & tx plan., 7. Pt requires further education on strategies & risks. - Status Active ST Patient: Active - Contact Information [facility] Speech Therapy:: Aaliyah Ratliff M.A. [facility] Speech-Language Pathologist [address] [address] [email or web address] [phone] 02/18/22 10:14 02/18/22 1519 <Electronically signed by Aaliyah Ratliff M.A. [facility]> Date/Time Aaliyah Ratliff M.A., [facility] Co-Signature Required for all Medicare patients Date/Time Co-Signature CC: ~
--- NOTE | 2022-03-22 17:50 | HP.SP.EVAL ---
History - History Date of Eval: 03/22/22 Previous speech therapy: Yes Results: Francisco was seen at [facility] for a dysphagia evaluation. Pt had an MBSS completed in February 2023, which revealed a mild oropharyngeal dysphagia. Pt has had 2 previous MBSS and an hx of dysphagia following a stroke in 2020. Pt with hx of aspiration pneumonia Pt lives at home with his , who participates in his care. Pt with R side weakness and unable to move his right arm. Smoking Status: Never smoker Hx Smoking: No Hx Tobacco Use: No - Pain Is pain an issue with your current prescribed condition?: No Patient Allergies - Allergies Allergies meloxicam [From Mobic] Allergy (Intermediate, Verified 03/17/22 13:42) itching pravastatin [From Pravachol] Adverse Reaction (Mild, Verified 03/17/22 13:42) myalgia cholestyramine Adverse Reaction (Verified 03/17/22 13:42) hypoglycemia Objective Dysphagia - Administered by Administered by: Self - Thin Liquids Administred via: Cup Oral Transit: Delay > 1 seconds Bolus clearance: fully cleared Gagging: No Cough: none observed/unable to assess Pharyngeal phase: suspect pharyngeal deficits - Regular Patient Report: Pt reports pocketing on his left side of his cheek following his stroke. - Swallowing Impairment Contributing Factors to Swallowing Impairment: Impaired Oral-Pharyngeal Transport, Reduced Laryngeal Excursion - Impact Impact on Safety & Functioning: Risk for Aspiration Comments: Pt with hx of aspiration pneumonia - Recommendations Modified Barium Swallow/Cookie Swallow Recommended: No Swallowing Treatment: Yes - Diet Texture Recommendations Solids: Regular (Level 7) Liquids: Thin (Level 0) - Safety Saftey Precautions/Swallowing Recommendations (Check all that Apply): Reduce Distractions, Needs Verbal Cues to Use Recommended Strategies, Upright Position at Least 30 Minutes After Meals, Small Sips & Bites when Eating, No Straw - Results Swallowing Within Normal Limits: No Swallowing Diagnosis: Oropharyngeal Phase Dysphagia (R13.12) Severity: Mild Subjective Oral Motor - Subjective Facial Drooping: Right Dentures ill fitting: No Objective Oral Motor - Labial Impairment: Mild Observation at Rest: Left Droop Closure: WNL Pucker: WFL Retraction: WFL Alternating Pucker/Retraction: WFL Involuntary Movement noted: No - Lingual Impairment: Mild - Respiratory Status Respiratory Status: Room Air Modified Barium Results Hx MBS Report Entered: Yes MBS Results (from prior exam): 03/22/22 17:30 Speech Therapy by Aaliyah Davalos [facility] Speech Pathology [address] [place] [address] Modified Barium Swallow Study MR#: [id number] Acct: [id number] Name: FRANCISCO CLOUD Rep #: [id number] : 1940 81 From: Aaliyah Ratliff M.A., [facility] Modified Barium Swallow - Patient Information Study Date: 02/18/22 Study Time: 09:00 Direct Billable Minutes: 110 Total Minutes procedure & reportin Diagnosis: Aspiration Pneumonia (J69.0) Referring Physician: Amalia Aguila Reason for Referral: Objectively assess swallow function, risk for aspiration, and determine recommendations for least restrictive diet textures and compensatory strategies to improve safety of swallow. Medical History: Francisco Cloud is a 81 M who presented to [facility] 02/16/2022 after CVA follow-up at the hospital. As he was going home, he became dizzy, slumped backwards, and had poor responsiveness - rapid response was called. Pt was sent to ED, although he was reluctant at first. 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 Cough is nonproductive. Admitting chest x-ray showed bibasilar atelectasis and right lower lung infiltrate. He was admitted for management of hypotension, along with other comorbidities, including suspected aspiration PNA. He was seen by ST 02/17/2022 for BSE and recommended for regular textures / thin liquids - distant supervision. He was additionally recommended for MBSS to assess concern for aspiration due to current aspiration PNA and hx of aspiration of thin liquids. 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 He was seen by ST on inpatient rehab from 01/03/2021-01/27/2021 for dysphagia therapy with MBSS revealing aspiration of thin liquids and recommending Minced and moist textures / Thin liquids. Pt discharged home on this diet and was recommended for ST, which the patient did follow through with. Repeat MBSS completed 02/26/2021 recommended Soft and Bite Size textures (IDDSI Level 6), Thin Liquids; Compensatory Strategies: Small Bites, Small Sips, No Straws, Slow Rate - One bite/sip at a time, Multiple Swallows - Consider use of intermittent double swallows during meals due to mild oral and pharyngeal residues present during study., Sitting upright, Assist with verbal cues to use recommended strategies; Supervision: Assist as needed. Dentition: Natural Teeth Mental Status: WNL Respiratory Status: Oxygenating on 2L/M nasal cannula - Penetration-Aspiration Scale Penetration-Aspiration Scale: OBJECTIVE ASSESSMENT OF SWALLOW FUNCTION (QUANTITATIVE ? PER TRIAL): PENETRATION / ASPIRATION SCALE (DUMONT): 1 = does not enter airway 2 = enters airway/above vocal folds/ejected 3 = enters airway/above vocal folds/not ejected 4 = enters airway/contacts vocal folds/ejected 5 = enters airway/contacts vocal folds/not ejected 6 = enters airway/below vocal folds/ejected 7 = enters airway/below vocal folds/not ejected despite effort 8 = enters airway/below vocal folds/no effort VIDEOFLOROSCOPIC SCALE SCORE (DUMONT): Grade I = aspiration of material that has penetrated into the laryngeal vestibule, intact cough reflex Grade II = aspiration < 10 % of the bolus, intact cough reflex Grade III = aspiration of < 10 % of the bolus, reduced cough reflex or aspiration of > 10 % of the bolus, intact cough reflex Grade IV = aspiration of > 10 % of the bolus, reduced cough reflex - Penetration-Aspiration Scale Score Thin Liquid via teaspoon Result: 1= does not enter airway Thin Liquid via teaspoon Trial 2 Result: 1= does not enter airway Thin Liquid via large single sip from cup Result: 7= enters airways/below vocal folds/not ejected despite effort - delayed, throat clear - ineffective at clearing aspirated contrast Thin Liquid via small single sip from cup Result: 1= does not enter airway Espino Thick Liquid via small single sip from cup Result: 1= does not enter airway Honey Thick Liquid via small single sip from cup Result: 1= does not enter airway Pudding via teaspoon with esophageal screen Result: 1= does not enter airway 1/2 Cookie Result: 1= does not enter airway Thin Liquid via small single sip from cup Trial 2 Result: 2= enter airway/above vocal folds/ejected Thin Liquid via small single sip from cup Effortful swallow Result: 1= does not enter airway - Oral Phase Labial Seal: No Labial Escape Tongue Control During Bolus Hold: Posterior escape of greater than half of bolus Bolus Preparation/Mastication: Slow prolonged chewing/mashing with complete recollection Bolus Transport/Lingual Motion: Slowed tongue motion Oral Residue: Trace residue lining oral structures - Pharyngeal Phase Initiation of Pharyngeal Swallow: Bolus head in pyriforms Soft Palate Elevation: No bolus between soft palate and pharyngeal wall Laryngeal Elevation: Partial superior movement thyroid cart/partial apprx aryt-epig petiole Anterior Hyoid Excursion: Partial anterior movement Epiglottic Movement: Complete inversion Laryngeal Vestibule Closure at Height of Swallow: Incomplete; narrow column of air/contrast in laryngeal vestibule Pharyngeal Stripping Wave: Present - complete Pharyngoesophageal Segment Opening: Parital distension and partial duration; parital obstruction of flow Tongue Base Retraction: Narrow column of contrast between tongue base & post. pharyngeal wall Pharyngeal Residue: Minimal to no pharyngeal clearance - Esophageal Phase Esophageal Clearance: Complete clearance - Treatment Strategies Effects of treatment strategies attemped:: Decreased bolus size = effective. Effortful swallow = effective. - Diagnosis/Impression Diagnosis: Mild oropharyngeal phase dysphagia (R13.12) Impression: The oral phase is primarily marked by... -Decreased bolus control with >1/2 of the bolus spilling posteriorly to the pyriforms prior to swallow onset observed with thin liquid trials. -Slowed tongue motion for A-P transport. -Prolonged, but adequate mastication of cookie with trace oral residues. The pharyngeal phase is primarily marked by... -Delayed swallow onset with thin liquids. -Decreased airway closure during the swallow due to decreased anterior hyoid excursion and decreased laryngeal elevation. -Mildly decreased tongue base retraction and UES opening/duration with resulting trace-mild pharyngeal residues after the swallow. -Aspiration of large sips of thin liquids by cup - weak throat clear in response to aspiration. Trace laryngeal penetration of small sip of thin liquids via cup, which did fully eject from the laryngeal vestibule after the swallow. Use of decreased bolus size and effortful swallow was most effective in decreasing risk for aspiration. The esophageal phase is primarily marked by... -Small CP bar present at the level of C-4, which did not appear to impact bolus clearance through the UES. - Recommendations Diet: Regular Textures, Thin Liquids Comment: medications whole in puree Compensatory Strategies: Small Bites, Small Sips - effortful swallows with liquids, No Straws, Slow Rate, Sitting upright, Remain sitting upright for 30 minutes after PO intake Supervision: 1:1 Close Supervision Recommend Repeat Modified Barium Swallow: TBD Need for Skilled Speech Therapy Services: Yes Comment: Will recommend the patient for dysphagia therapy to address deficits in oropharyngeal swallow function. Will recommend the patient for oropharyngeal strengthening to improve tongue base retraction, laryngeal elevation, hyoid excursion, and lingual control (Eboni, CTAR, Cristhian, effortful, lingual resistance). The patient would benefit from thorough education regarding diet recommendations and recommended compensatory strategies. Education Completed: 1. Described result of evaluation., 2. Pt understands evaluation & agrees with goals and treatment plan., 4. Family/caregivers understand evaluation & agree w/ goals & tx plan., 7. Pt requires further education on strategies & risks. - Status Active ST Patient: Active - Contact Information [facility] Speech Therapy:: Aaliyah Ratliff M.A. [facility] [facility] Speech-Language Pathologist [address] [address] [email or web address] [phone] 02/18/22 10:14 02/18/22 1519 <Electronically signed by Aaliyah Ratliff M.A. [facility] [facility]> Date/Time Aaliyah Ratliff M.A. [facility] [facility] Co-Signature Required for all Medicare patients Date/Time Co-Signature CC: ~ Initialized on 03/22/22 17:30 - END OF NOTE Subjective Dysarthria/Motor - Subjective Subjective: Pt stated that his words sometimes does not sound right, but no errors were noted in conversation. A list of compensatory strategies were provided. Swallowing Performance Scale - Swallowing Performance Scale Swallowing Performance Scale Result: 3 Mild Other - Other Oral Motor Exercises -: Pt completed oral motor exercises for swallowing and lingual strengthening during the assessment: CTAR, Effortful swallow, Eboni, cristhian, Smile/pucker, lip alt. puckering, tongue cheek press, and tongue gum sweep. Pt completed all exercises with mod verbal and visual cuing. Pt stated that 2 exercises were very difficult to complete. Compensatory strategies for swallowing safety, oral care precautions and direct education were provided. Handout with the exercises and strategies were given to the pt to take home and practice. Plan - Plan Plan: Will rx Pt for skilled outpatient tx to address deficits in oropharyngeal dysphagia. Pt would benefit from training and education re: diet tolerance checks, compensatory strategies and swallowing exercises to aid in oropharyngeal strengthening. Without skilled intervention, Pt is at risk for consuming a restrictive diet putting him at risk for aspiration pneumonia and atrophy of laryngeal musculature - Recommendations MBS: No Treatment Warranted: Yes Treatment Warranted: Dysphagia - Progress Prognosis: Good - Frequency Frequency: 1x/Week Additional (Frequency): 1x in one week, then x1 in a month if pt is appropriate to continue exercises at home. Duration: 6 Weeks - Goals that are Established Determination:: Goals will be added/modified as deemed necessary and appropriate. Therapy will be discontinued when results of re-evaluation indicate therapy is no longer needed or lack of progress has been documented. - Goal #1-5 Goal #1: Pt will complete oropharyngeal exercises for 10 reps, 3x/day independently to improve tongue base retraction, PES opening/distention, and hyolaryngeal elevation and excursion. Goal #2: Pt will utilize swallowing strategies re: reducing distractions, effortful swallow, small sips & bites and tolerate least restrictive diet with no overt s/s of aspiration/penetration to aid in safe consumption of solid/liquids independently. Goal #3: Pt will complete oropharyngeal exercises re: CTAR, Effortful swallow, Eboni, cristhian, Smile/pucker, lip alt. puckering, tongue cheek press, and tongue gum sweep independently during 2 sessions. Education - Patient has Indicated that the Following Identified Educational Needs: None The Patient has indicated that they have no educational or learning abilities that may effect their care.: Yes - Patient Instruction Patient Education: Diagnosis, Treatment Plan, Goals, Safety Precautions, Diet Level, Home Exercise Program Person Taught: Patient, Family Teaching Method: Discussion, Demonstration, Handout, Teach back Response to teaching: Reinforcement needed
--- NOTE | 2022-07-22 17:46 | HP.SP.DC ---
ST Discharge Summary - Discharged: Discharge: Pt was seen for a swallowing evaluation at [facility] [place] on 03/22/22 s/p dysphagia diagnosis from [facility]SS. Pt is being discharged on this date, 07/22, due to not scheduling additional appointments. Thank you for letting me participate in your plan of care. Will reevaluate at Pt?s request following script from physician.
== END 2022-03-22 19:00 | disposition home or self-care (01) ==
LOC: SP 13:51
PROVIDERS: PCP Internal Medicine; Referring Provider Family Medicine Geriatric Medicine; Visit Provider Internal Medicine
DX: I69.391 Dysphagia following cerebral infarction (principal); R13.12 Dysphagia, oropharyngeal phase
CPT/HCPCS: 92610

== ENCOUNTER 2022-04-05 12:08 | Inpatient (IN) | payer MEDICARE, SELFPAY ==
[2022-04-05] VITALS (12 sets, daily range): BP systolic 140–162; BP diastolic 52–75; PULSE 63–78; RESP 16–20; TEMP 36.6–36.9; O2SAT 90–95; BMI 25.7; BMI 25.6
--- NOTE | 2022-04-05 12:58 | EKG12_ITS ---
Test Reason : Blood Pressure : / mmHG Vent. Rate : 068 BPM Atrial Rate : 068 BPM P-R Int : 134 ms QRS Dur : 090 ms QT Int : 444 ms P-R-T Axes : 036 047 014 degrees QTc Int : 472 ms Normal sinus rhythm Normal ECG Confirmed by LEONARDO STRONG, GEMMA ([id number]), general expeditor AP NUNEZ ([id number]) on 04/07/2022 8:58:10 AM Referred By: MANA Confirmed By:GEMMA PATTERSON MD
[2022-04-05] MEDS: Furosemide 20 MG/2 ML VIAL IV (13:18)
[2022-04-05 13:27] LABS: Absolute Lymphocyte Count 0.93 X10^3/uL (0.83-4.51); Absolute Neutrophil Count 6.2 X10^3/uL (2.0-7.7); Basophil# 0.06 X10^3/uL; Basophil% 0.7 % (0-1); Eosinophil# 0.49 X10^3/uL; Eosinophils% 5.4 % (0-5); Hematocrit 27.4 % (40-54); Hemoglobin 8.6 g/dL (13.0-16.5); Lymphocyte # 0.93 X10^3/ul (0.83-4.51); Lymphocyte % 10.3 % (19-41); Mean Corp Hgb Conc 31.4 g/dL (32-36); Mean Corpuscular Volume 89.3 fL (80-94); Mean Platelet Vol. 10.4 fl (6.2-12.0); Monocyte# 1.28 X10^3/uL; Monocyte% 14.2 % (0-10); NRBC Flagged by Analyzer 0 % (0-5); Neutrophil # 6.24 X10^3/uL (2.7-7.7); Neutrophil % 69.3 % (47-70); Platelet Count 289 K/mm3 (150-450); RBC Distribution Width CV 14.4 % (11.6-14.6); RBC Distribution Width SD 46.4 fl (35.1-43.9); Red Blood Count 3.07 M/mm3 (4.6-6.2)
--- NOTE | 2022-04-05 13:40 | ED.VIS.DYS ---
HPI History of Present Illness Chief Complaint: Shortness of Breath Detail of Chief Complaint: Increasing shortness of breath Informant: patient and spouse/S.O. Onset/Context/Timing Onset: Days Context: gradual Timing: Continuous Quality: Positive for Dyspnea on exertion; Negative for Orthopnea, PND or Wheezing Current Severity: Moderate Maximum Severity: Severe Worsened by: Exertion; Not Worsened By Lying flat or Coughing Relieved by: Nothing Associated Symptoms Negative for cough, rhinorrhea, post nasal drip, ear pain, fever, sore throat, subjective, chills, sweats, clear sputum, white sputum, yellow sputum or green sputum Chest Pain: Positive for None Narrative Narrative: Patient is an 81-year-old male who is a poor informant. He presents because of increasing shortness of breath over the past several days. had to supplement. He denies chest discomfort. He denies fever, chills or night sweats. He does report congestion, which is chronic. He denies postnasal drainage or sore throat. He denies history of PE or DVT. He does endorse increased swelling of his legs. He denies orthopnea. He states he sleeps with 1 pillow. He denies PND. He denies chest pressure, tightness, heaviness or pain. He denies nausea, vomiting or diarrhea. He denies black or maroon-colored stool. He denies urologic symptoms. He does have history of iron deficiency anemia. He has noted no change in the size, caliber or consistency of his stool. PE Risk Factors: Positive for Recent immobilization; Negative for Cancer, OCP + Smoking + > 35, Prior DVT or PE, Recent surgery or Recent travel Prior similar symptoms: Yes Recent Illness/Hospitalization: No [facility] Medical History Absent pedal pulses Acute left-sided muscle weakness Depression Dysphagia Essential hypertension Facial droop due to acute stroke History of CVA (cerebrovascular accident) (12/2020) Hydrocele in adult Hyperlipidemia Incontinence Limb weakness Normocytic normochromic anemia Osteoarthritis Peripheral vascular occlusive disease Pneumonia Proteinuria due to type 2 diabetes mellitus Recurrent inguinal hernia of right side without obstruction or gangrene Restless legs Right pontine CVA Right renal artery stenosis Skin lesion of face SOB (shortness of breath) Type 2 diabetes mellitus Unsteadiness Ventricular tachycardia seen on hospital monitor (02/20/21) Home Medications multivitamin,[id number] (Complete Multivitamin tablet) 1 tab PO QDAY supplement 03/03/17 [History Last Taken 02/23/22] aspirin 81 mg chewable tablet 81 mg PO BREAKFAST heart health 01/02/21 [History Last Taken 02/24/22] Handicap Placard #1 ea 02/12/21 [Rx Last Taken Unknown] pen needle, diabetic 32 gauge x 32 (BD Sanaz 2nd Gen Pen Needle) #50 ea 06/02/21 [Rx Last Taken Unknown] carvedilol 25 mg tablet 25 mg PO BID heart 02/24/22 [History Last Taken 02/24/22] clopidogrel 75 mg tablet (Plavix) 75 mg PO DAILY blood thinner 02/24/22 [History Last Taken 02/23/22] doxazosin 8 mg tablet 8 mg PO QHS bph 02/24/22 [History Last Taken 02/23/22] ezetimibe 10 mg tablet (Zetia) 10 mg PO QHS cholesterol 02/24/22 [History Last Taken 02/23/22] ferrous sulfate 325 mg (65 mg iron) capsule,extended release 65 mg PO DAILY supplement 02/24/22 [History Last Taken 02/23/22] latanoprost 0.005 % eye drops 1 drp EACH EYE HS eyes 02/24/22 [History Last Taken 02/23/22] pramipexole 0.125 mg tablet 0.125 mg PO QHS parkinsons 02/24/22 [History Last Taken 02/23/22] sertraline 50 mg tablet 50 mg PO DAILY mood 02/24/22 [History Last Taken 02/24/22] sennosides 8.6 mg-docusate sodium 50 mg tablet (Stool Softener-Stimulant Laxative) 2 tab PO BID PRN PRN Constipation #0 tabs 02/27/22 [Rx Last Taken Unknown] acetaminophen 500 mg tablet 1,000 mg PO Q6H PRN PRN Pain Score 1-10 #0 tabs 03/09/22 [Rx Last Taken Unknown] amlodipine 5 mg tablet 5 mg PO DAILY 30 days #30 tabs 03/09/22 [Rx Last Taken Unknown] insulin lispro 100 unit/mL subcutaneous pen (Humalog KwikPen (U-100) Insulin) 5 unit subcut TIDAC 03/17/22 [History Last Taken Unknown] melatonin 10 mg sublingual tablet 10 mg PO QHS 03/17/22 [History Last Taken Unknown] gabapentin 100 mg capsule 100 mg PO BID pain #180 caps 03/18/22 [Rx Last Taken Unknown] gabapentin 300 mg capsule 300 mg PO 2100 pain #90 caps 03/18/22 [Rx Last Taken Unknown] losartan 25 mg tablet 25 mg PO DAILY 30 days #90 tabs 03/18/22 [Rx Last Taken Unknown] hydralazine 25 mg tablet 75 mg PO TID 30 days #270 tabs 03/25/22 [Rx Last Taken Unknown] hydrochlorothiazide 25 mg tablet 25 mg PO DAILY 04/05/22 [History Last Taken Unknown] insulin glargine-yfgn 100 unit/mL (3 mL) subcutaneous pen 14 unit subcut DAILY 04/05/22 [History Last Taken Unknown] Allergy/AdvReac Type Severity Reaction Status Date / Time meloxicam [From Mobic] Allergy Intermediate itching Verified 04/05/22 12:08 pravastatin [From Pravachol] AdvReac Mild myalgia Verified 04/05/22 12:08 cholestyramine AdvReac hypoglycemi Verified 04/05/22 12:08 a Family History Mother Hypertension Cancer Father Heart disease Diabetes Surgical History History of cataract surgery History of herniorrhaphy History of lumbar laminectomy History of stent insertion of renal artery (08/05/21) Status post laser cataract surgery of left eye Social History household members: spouse and other details: Abigail is his 's name housing: house number of children: 2 current occupational status: retired and other details: worked for [employer] prior to retiring leisure activities: other Smoking Status: Never smoker Electronic Cigarette Use: not used alcohol intake: former substance use type: does not use what type of physical activity do you participate in: walking frequency: 1-2 times per week ROS ROS ED Constitutional Constitutional ED: Denies chills, fever(s), sweats or weight loss Eyes Eyes: Denies blurry vision, change in vision or diplopia ENT ENT ED: Denies ear pain, rhinorrhea or sore throat Cardiovascular Cardiovascular: Denies chest pain, orthopnea, palpitations, paroxysmal nocturnal dyspnea or racing heartbeat Respiratory/Chest Respiratory/Chest: Reports dyspnea and dyspnea on exertion; Denies cough, orthopnea, paroxysmal nocturnal dyspnea or sputum Gastrointestinal Gastrointestinal: Denies abdominal pain, constipation, diarrhea, melena, nausea or vomiting Genitourinary Genitourinary ED: Denies dysuria, hematuria or urinary frequency Musculoskeletal Musculoskeletal: Denies arthralgias, back pain, myalgias or neck pain Integumentary Denies Abrasions or rash Neurologic Neurologic: Denies headache(s), paresthesias or weakness Endocrine Endocrinology: Denies polydipsia or polyuria Hematologic/Lymphatic Hematologic/Lymphatic: Denies easy bleeding or easy bruising EXAM Physical Exam Const Vital Signs: 04/05/22 12:10 04/05/22 12:28 04/05/22 12:29 Temperature 98.4 F Temperature Source Temporal Pulse Rate 63 66 Respiratory Rate 19 H 18 Respiratory Effort Normal Non-Labored Respiratory Depth Normal Respiratory Pattern Normal Blood Pressure 149/52 H 140/75 H Blood Pressure Mean 84 96 Pulse Ox 93 93 Oxygen Delivery Method Room Air Nasal Cannula Oxygen Flow Rate (L/min) 2 04/05/22 13:23 04/05/22 14:43 Temperature 98.4 F Temperature Source Oral Pulse Rate 66 67 Respiratory Rate 20 H 16 Respiratory Effort Respiratory Depth Respiratory Pattern Blood Pressure 147/60 H 154/63 H Blood Pressure Mean 89 93 Pulse Ox 92 95 Oxygen Delivery Method Nasal Cannula Nasal Cannula Oxygen Flow Rate (L/min) 2 2 Positive well nourished and well developed; Negative for obese Constitutional Narrative: Patient has use of accessory muscles and mild retractions. Patient was not hypoxic on room air. He was placed on 2 L by nasal cannula. states he has obstructive sleep apnea and is compliant with his BiPAP machine. This helps his breathing. General Appearance ED: well developed and pallor; Negative for NAD Nutritional Appearance: Negative for obese HEENT Reports dry mucous membranes HEENT Narrative: Head is normocephalic. Ears normal. TMs are normal. Nares are patent. There is no drainage. Posterior pharynx out erythema or exudate. Uvula midline. atraumatic Mouth ED: Yes dry mucous membranes Mouth: dry mucous membranes Eyes PERRL and EOMs intact bilaterally General Eye ED: Yes pale conjunctiva; Negative for scleral icterus Neck no lymphadenopathy, supple, no meningeal signs and no JVD Resp No normal respiratory effort Resp Narrative: There are by lateral rales, greater on the left. There is diminished breath sounds on the left. Cardio regular rate, regular rhythm, S1 normal heart sound, S2 normal heart sound and no murmurs GI non-tender, non-distended and no masses Auscultation: hypoactive bowel sounds Palpation: soft Back/Spine no CVA tenderness and normal to inspection General Back: Negative for CVA tenderness Extremity Extremity Narrative: Patient has significant edema of the right and left lower extremity. Extremities are pale. Because of the amount of edema unable to appreciate a PT or DP pulse. Capillary refill is normal. General Extremety ED: Yes edema General Extremity: edema Neuro oriented x3, CN's II-XII intact bilaterally and no sensory deficits noted [place] Coma Scale: document GCS findings Spontaneous Obeys Commands Oriented 15 Psych mental status grossly normal Skin no wounds General Skin Exam: pallor; Negative for jaundice MDM MDM MDM Narrative Medical decision making narrative: Patient had an echo performed February 2022 when he was admitted for bradycardia and V. tach noted on monitor. He also had issues with high blood pressure. The echocardiogram was interpreted radiologist and revealed the following: Echocardiogram? 02/16/22 Interpretation Summary Left ventricular systolic function is normal. The estimated ejection fraction is 65 %. The left atrium is mildly enlarged. There is moderate to severe mitral annular calcification. Extension of the mitral annular calcification on the base of the posterior mitral valve leaflet. Mild mitral valve stenosis. Mild (1+) mitral valve insufficiency. Mild tricuspid valve insufficiency. Mild aortic stenosis. Right ventricular systolic pressure estimated to be 55 mmHg c/w pulmonary hypertension. Stage 2 diastolic dysfunction. Clinically patient appears pale. Will obtain CBC to assess for anemia. Chest x-ray is obtained because of concern for congestive heart failure. BMP was obtained to assess renal function electrolytes. EKG to rule out acute ischemia. Troponin to rule out recent myocardial event. Patient was administered Lasix and since clinically he is fluid overloaded and concern for CHF since he reports history of congestive heart failure. Dr. [place] patient's casing soaker was paged to discuss case. Suspect this is a combination of heart failure with anemia and renal insufficiency. Dr. [place] recommended additional dose of Lasix. Spoke with Dr. Verma the hospitalist for admission. Lab Data Attestation: I reviewed the patient's lab results. Lab results narrative: Patient has chronic anemia. H&H is baseline for patient. Lactate was normal. BNP is slightly elevated 282.1. Patient's creatinine is elevated and is chronically elevated. Delta troponin is 1. Labs: Laboratory Results - last 24 hr 04/05/22 04/05/22 04/05/22 13:15 13:15 13:15 WBC 9.0 RBC 3.07 L Hgb 8.6 L Hct 27.4 L MCV 89.3 MCH 28.0 MCHC 31.4 L RDW Std Deviation 46.4 H RDW Coeff of Cait 14.4 Plt Count 289 MPV 10.4 Immature Gran % (Auto) 0.100 Neut % (Auto) 69.3 Lymph % (Auto) 10.3 L [place] % (Auto) 14.2 H Eos % (Auto) 5.4 H Baso % (Auto) 0.7 Absolute Neuts (auto) 6.2 Absolute Lymphs (auto) 0.93 Nucleated RBC % 0 Sodium 139 Potassium 3.8 Chloride 107 Carbon Dioxide 24.0 Anion Gap 8 BUN 35 H Creatinine 1.76 H Estim Creat Clear Calc 35.52 Est GFR (MDRD) Af Amer 48 L Est GFR (MDRD) Non-Af 40 L BUN/Creatinine Ratio 19.9 Glucose 136 H Lactic Acid 1.0 Calcium 9.0 Troponin I High Sens 10 B-Natriuretic Peptide 04/05/22 04/05/22 13:15 15:34 WBC RBC Hgb Hct MCV MCH MCHC RDW Std Deviation RDW Coeff of Cait Plt Count MPV Immature Gran % (Auto) Neut % (Auto) Lymph % (Auto) [place] % (Auto) Eos % (Auto) Baso % (Auto) Absolute Neuts (auto) Absolute Lymphs (auto) Nucleated RBC % Sodium Potassium Chloride Carbon Dioxide Anion Gap BUN Creatinine Estim Creat Clear Calc Est GFR (MDRD) Af Amer Est GFR (MDRD) Non-Af BUN/Creatinine Ratio Glucose Lactic Acid Calcium Troponin I High Sens 11 B-Natriuretic Peptide 282.1 H Radiography Chest X-Ray - ED: 1 View and Read by ED Physician (Single view chest x-ray reveals a significant left pleural effusion compared to x-ray obtained on February 24 and 15. The bilateral upper lobe infiltrates have resolved. This was independent reviewed interpreted by me.) EKG Initial EKG: Attestation: I personally reviewed and interpreted this EKG as follows: Interpretation: Sinus Rhythm (Normal sinus rhythm. EKG is normal. Ventricular rate is 68. [place] interval is 134 ms. QS duration 90 ms. QT duration of 140 ms. [place] is normal.) Discharge Plan Triage Chief Complaint: Shortness of Breath ED Provider: Paddy Milner Dx/Rx/DC Orders Clinical Impression: Pleural effusion on left, Obstructive Sleep Apnea-Hypopnea Syndrome, Chronic anemia, Lymphedema of both lower extremities, Type 2 diabetes mellitus, Coronary artery disease, Congestive heart failure, Chronic kidney disease (CKD) stage G3a/A1, moderately decreased glomerular filtration rate (GFR) between 45-59 mL/min/1.73 square meter and albuminuria creatinine ratio less than 30 mg/g Prescriptions: No Action multivitamin,kb-syoy-hcoqzwox tablet tablet 1 tab PO QDAY melatonin 10 mg tablet, sublingual 10 mg PO QHS insulin lispro [Humalog KwikPen Insulin] 100 unit/mL insulin pen 5 unit subcut TIDAC Label Comments: if bs over 130 insulin glargine-yfgn 100 unit/mL (3 mL) insulin pen 14 unit subcut DAILY hydrochlorothiazide 25 mg tablet 25 mg PO DAILY aspirin 81 mg tablet,chewable 81 mg PO BREAKFAST ferrous sulfate 325 mg (65 mg iron) Capsule, Extended Release 65 mg PO DAILY latanoprost 0.005 % drops 1 drp EACH EYE HS carvedilol 25 mg tablet 25 mg PO BID Rx Instructions: must administer with a meal/food clopidogrel [Plavix] 75 mg tablet 75 mg PO DAILY doxazosin 8 mg tablet 8 mg PO QHS pramipexole 0.125 mg tablet 0.125 mg PO QHS sertraline 50 mg tablet 50 mg PO DAILY ezetimibe [Zetia] 10 mg tablet 10 mg PO QHS Rx Instructions: take at bedtime sennosides-docusate sodium [Stool Softener-Stimulant Laxat] 8.6-50 mg Tablet 2 tab PO BID PRN PRN (Reason: Constipation) Qty: 0 0RF amlodipine 5 mg Tablet 5 mg PO DAILY 30 Days Qty: 30 0RF acetaminophen 500 mg Tablet 1,000 mg PO Q6H PRN PRN (Reason: Pain Score 1-10) Qty: 0 0RF (DME) Handicap Placard See Rx Instructions .Route .MEDSUPPLY Qty: 1 0RF Rx Instructions: Length of time: 5 years (DME) pen needle, diabetic [BD Sanaz 2nd Gen Pen Needle] 32 gauge x 5/32 needle See Rx Instructions .ROUTE .MEDSUPPLY Qty: 50 2RF Rx Instructions: use once daily to adminster insulin as directed. gabapentin 100 mg capsule 100 mg PO BID Qty: 180 3RF gabapentin 300 mg capsule 300 mg PO 2100 Qty: 90 3RF losartan 25 mg tablet 25 mg PO DAILY 30 Days Qty: 90 3RF hydralazine 25 mg tablet 75 mg PO TID 30 Days Qty: 270 3RF Primary Care Provider: Jennifer Watt Referrals: Jennifer Watt MD [Primary Care Provider] - Disposition Disposition: Acute Care Hospital [facility]
[2022-04-05 13:46] LABS: BNP,B-Type NATRIURETIC PEPTIDE 282.1 pg/mL (0-100)
[2022-04-05 13:53] LABS: Anion Gap 8 (5-15); BUN 35 mg/dL (7-18); BUN/Creat Ratio 19.9 RATIO (10-20); Chloride 107 mmol/L (98-107); Creatinine, Serum 1.76 mg/dL (0.70-1.30); EST Glomerular Filtration Rate 40 mL/min (>60); Est Glom Filt Rate - Afr Amer 48 mL/min (>60); Estimated Creatinine Clearance 35.52 ml/min; Glucose 136 mg/dL (74-106); Potassium 3.8 mmol/L (3.5-5.1); Sodium Level 139 mmol/L (136-145); Troponin-I HS (w/2H Reflex) 10 pg/mL (3.0-78.0)
[2022-04-05 15:23] LABS: Reflex Troponin-HS? (from REC) Y
[2022-04-05 15:58] LABS: Troponin-I HS 11 pg/mL (3.0-78.0)
[2022-04-05] MEDS: Furosemide 100 MG/10 ML Vial 60 MG IV (16:24)
--- NOTE | 2022-04-05 16:30 | NURSING ---
PCDaysi AMAYA CHF, LEFT PLEURAL EFFUSION, CHRONIC KIDNEY DISEASE, CHRONIC ANEMIA
--- NOTE | 2022-04-05 18:16 | HP.PCM.HOS_ITS ---
HPI - General General Date of Admission: 04/05/22 Date of Service: 04/05/22 Chief Complaint: shortness of breath. HPI Narrative SHAISTA CLOUD, is a 81 M with a PMH as outlined who presents via the ED on 04/05/2022 with a complaint of shortness of breath which have been going on for about 2 days prior to admission. He denied any fever, chills, cough or chest pain or palpitations. He denid any orthopnea or PND, but admitted to lower extremity swelling. his symptoms hadnt been improving, so they came in to the ED. according to his , she was not aware of patient having heart failure though patient says he used to be on spironolactone but is not clear what it was for. Review of systems otherwise negative. Vitals in the ED were blood pressure 159/64, pulse rate of 66, respiratory rate of 19 and temperature of 97.9 Fahrenheit. He was saturating at 95% on 2 L of oxygen. CBC showed hemoglobin of 8.6 and WBC of 9 with platelets of 289. Chemistry showed sodium of 139 with potassium of 3.8 and creatinine of 1.76. BNP was 282.1. He is being admitted to be managed for acute exacerbation of heart failure. [facility] Medical History Absent pedal pulses Acute left-sided muscle weakness Depression Dysphagia Essential hypertension Facial droop due to acute stroke History of CVA (cerebrovascular accident) (12/2020) Hydrocele in adult Hyperlipidemia Incontinence Limb weakness Normocytic normochromic anemia Osteoarthritis Peripheral vascular occlusive disease Pneumonia Proteinuria due to type 2 diabetes mellitus Recurrent inguinal hernia of right side without obstruction or gangrene Restless legs Right pontine CVA Right renal artery stenosis Skin lesion of face SOB (shortness of breath) Type 2 diabetes mellitus Unsteadiness Ventricular tachycardia seen on customs agent (02/20/21) Home Medications multivitamin,[id number] (Complete Multivitamin tablet) 1 tab PO QDAY s upplement 03/03/17 [History Last Taken 02/23/22] aspirin 81 mg chewable tablet 81 mg PO BREAKFAST heart health 01/02/21 [History Last Taken 02/24/22] Handicap Placard #1 ea 02/12/21 [Rx Last Taken Unknown] pen needle, diabetic 32 gauge x (BD Sanaz 2nd Gen Pen Needle) #50 ea 06/02/21 [Rx Last Taken Unknown] carvedilol 25 mg tablet 25 mg PO BID heart 02/24/22 [History Last Taken 02/24/22] clopidogrel 75 mg tablet (Plavix) 75 mg PO DAILY blood thinner 02/24/22 [History Last Taken 02/23/22] doxazosin 8 mg tablet 8 mg PO QHS bph 02/24/22 [History Last Taken 02/23/22] ezetimibe 10 mg tablet (Zetia) 10 mg PO QHS cholesterol 02/24/22 [History Last Taken 02/23/22] ferrous sulfate 325 mg (65 mg iron) capsule,extended release 65 mg PO DAILY supplement 02/24/22 [History Last Taken 02/23/22] latanoprost 0.005 % eye drops 1 drp EACH EYE HS eyes 02/24/22 [History Last Taken 02/23/22] pramipexole 0.125 mg tablet 0.125 mg PO QHS parkinsons 02/24/22 [History Last Taken 02/23/22] sertraline 50 mg tablet 50 mg PO DAILY mood 02/24/22 [History Last Taken 02/24/22] sennosides 8.6 mg-docusate sodium 50 mg tablet (Stool Softener-Stimulant Laxative) 2 tab PO BID PRN PRN Constipation #0 tabs 02/27/22 [Rx Last Taken Unknown] acetaminophen 500 mg tablet 1,000 mg PO Q6H PRN PRN Pain Score 1-10 #0 tabs 1 05/10/21 [Rx Last Taken Unknown] amlodipine 5 mg tablet 5 mg PO DAILY 30 days #30 tabs 03/09/22 [Rx Last Taken Unknown] insulin lispro 100 unit/mL subcutaneous pen (Humalog KwikPen (U-100) Insulin) 5 unit subcut TIDAC 03/17/22 [History Last Taken Unknown] melatonin 10 mg sublingual tablet 10 mg PO QHS 03/17/22 [History Last Taken Unknown] gabapentin 100 mg capsule 100 mg PO BID pain #180 caps 03/18/22 [Rx Last Taken Unknown] gabapentin 300 mg capsule 300 mg PO 2100 pain #90 caps 03/18/22 [Rx Last Taken Unknown] losartan 25 mg tablet 25 mg PO DAILY 30 days #90 tabs 03/18/22 [Rx Last Taken Unknown] hydralazine 25 mg tablet 75 mg PO TID 30 days #270 tabs 03/25/22 [Rx Last Taken Unknown] hydrochlorothiazide 25 mg tablet 25 mg PO DAILY 04/05/22 [History Last Taken Unknown] insulin glargine-yfgn 100 unit/mL (3 mL) subcutaneous pen 14 unit subcut DAILY 04/05/22 [History Last Taken Unknown] Allergy/AdvReac Type Severity Reaction Status Date / Time meloxicam [From Mobic] Allergy Intermediate itching Verified 04/05/22 12:08 pravastatin [From Pravachol] AdvReac Mild myalgia Verified 04/05/22 12:08 cholestyramine AdvReac hypoglycemi Verified 04/05/22 12:08 a Family History Mother Hypertension Cancer Father Heart disease Diabetes Surgical History History of cataract surgery History of herniorrhaphy History of lumbar laminectomy History of stent insertion of renal artery (08/05/21) Status post laser cataract surgery of left eye Social History household members: spouse and other details: Abigail is his 's name housing: house number of children: 2 current occupational status: retired and other details: worked for [employer] prior to retiring leisure activities: other Smoking Status: Never smoker Electronic Cigarette Use: not used alcohol intake: former substance use type: does not use what type of physical activity do you participate in: walking frequency: 1-2 times per week ROS Review of Systems ROS Unobtainable: Denies due to encephalopathy Constitutional Constitutional: Reports fatigue and weakness; Denies anorexia, chills or fever(s) Eyes Eyes: Denies change in vision ENT HEENT: Reports epistaxis; Denies abnormal hearing, hearing loss, nasal congestion, sinus pressure or sore throat Cardiovascular Cardiovascular: Reports dyspnea on exertion and edema; Denies chest pain, lightheadedness, orthopnea, palpitations, paroxysmal nocturnal dyspnea, rapid heart rate or syncope Respiratory/Chest Respiratory/Chest: Reports dyspnea, shortness of breath at rest and shortness of breath with exertion; Denies cough, excessive phlegm production, hemoptysis, productive cough or wheezing Gastrointestinal Gastrointestinal: Denies abdominal pain, constipation, diarrhea, dyspepsia, nausea or vomiting Genitourinary Genitourinary: Denies burning urination, dysuria or urinary urgency Musculoskeletal Musculoskeletal: Denies arthralgias or joint pain Neurologic Neurologic: Denies confusion, dizziness, focal weakness or headache(s) Psychiatric Psychiatric: Denies anxiety or depression Hematologic/Lymphatic Hematologic/Lymphatic: Denies anemia Vital Signs Vital Signs Vital Signs: 04/05/22 12:10 04/05/22 12:28 04/05/22 12:29 Temperature 98.4 F Temperature Source Temporal Pulse Rate 63 66 Respiratory Rate 19 H 18 Respiratory Effort Normal Non-Labored Respiratory Depth Normal Respiratory Pattern Normal Blood Pressure 149/52 H 140/75 H Blood Pressure Mean 84 96 Pulse Ox 93 93 Oxygen Delivery Method Room Air Nasal Cannula Oxygen Flow Rate (L/min) 2 04/05/22 13:23 04/05/22 14:43 04/05/22 16:29 Temperature 98.4 F 97.9 F Temperature Source Oral Temporal Pulse Rate 66 67 66 Respiratory Rate 20 H 16 19 H Respiratory Effort Respiratory Depth Respiratory Pattern Blood Pressure 147/60 H 154/63 H 159/64 H Blood Pressure Mean 89 93 95 Pulse Ox 92 95 95 Oxygen Delivery Method Nasal Cannula Nasal Cannula Nasal Cannula Oxygen Flow Rate (L/min) 2 2 2 Weight Weight: 190 lb Body Mass Index (BMI) 25.7 Physical Exam Const alert, oriented x3 and no apparent distress General Appearance: cooperative HEENT normocephalic, head/scalp atraumatic, hearing grossly normal bilaterally and moist oral mucous membranes Mouth: oral and palatal mucosa normal Eyes PERRL and EOMs intact bilaterally Neck no lymphadenopathy and supple Resp Resp Narrative: mildly diminished breath sounds bibasally, no wheezes or crackles. On 2l of oxygen by nasal canula Cardio regular rate, regular rhythm, S1 normal heart sound, S2 normal heart sound and no murmurs GI normal to inspection, nondistended, normoactive bowel sounds, soft to palpation, non-tender and non-distended Extremity normal to inspection and full ROM Extremity Narrative: bilateral 2+ lower extremity pitting edema Neuro oriented x3 and moves all extremities Motor Exam: strength 5/5 throughout Psych affect normal Results Lab / Micro Data Result Diagrams: 04/05/22 13:15 04/05/22 13:15 Labs: Laboratory Results - last 24 hr 04/05/22 13:15: WBC 9.0, RBC 3.07 L, Hgb 8.6 L, Hct 27.4 L, MCV 89.3, MCH 28.0, MCHC 31.4 L, RDW Std Deviation 46.4 H, RDW Coeff of Cait 14.4, Plt Count 289, MPV 10.4, Immature Gran % (Auto) 0.100, Neut % (Auto) 69.3, Lymph % (Auto) 10.3 L, [place] % (Auto) 14.2 H, Eos % (Auto) 5.4 H, Baso % (Auto) 0.7, Absolute Neuts (aut o) 6.2, Absolute Lymphs (auto) 0.93, Nucleated RBC % 0 04/05/22 13:15: Sodium 139, Potassium 3.8, Chloride 107, Carbon Dioxide 24.0, Anion Gap 8, BUN 35 H, Creatinine 1.76 H, Estim Creat Clear Calc 35.52, Est GFR (MDRD) Af Amer 48 L, Est GFR (MDRD) Non-Af 40 L, BUN/Creatinine Ratio 19.9, Glucose 136 H, Calcium 9.0, Troponin I High Sens 10 04/05/22 13:15: Lactic Acid 1.0 04/05/22 13:15: B-Natriuretic Peptide 282.1 H 04/05/22 15:34: Troponin I High Sens 11 Assessment & Plan Assessment/Plan (1) Congestive heart failure: (2) Pleural effusion on left: PLAN: Plan #Acute exacerbation of heart failure * admit to PCU * CXR showed large left subpulmonic fluid with compressive atelectasis of lower lobe, and interval clearing of interstitial pneumonitis in the upper lobes and right lower lobe * diurese with IV lasix 40mg bid * monitor intake and output * fluid restriction to 1500cc daily * cardiology consulted from ER * 2D echo ordered * EKG showed no acute ST changes * #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 This is around his baseline. Will trend and monitor. Likely due to CKD. #CKD 3B: Cr is 1.76. This is around his baseline. eGFR is 40. This is around his baseline. Will monitor. #Type 2 diabetes mellitus: on lantus 14 units daily. ISS. Accuchecks ACHS. #Depression: on sertraline. DVT prophylaxis: lovenox Code status: full code * Patient and counseled extensively about different types of CODE STATUS including full code, DNR CCA and DNR CCA. Patient elects to be full code. * Total [id number] time 17 minutes. Charges/Coding Visit Charges Inpatient E&M: 28044 Init Hosp L3 Procedures Hospitalists Procedures: 12044 Advncd Care Plan 30 Min
--- NOTE | 2022-04-05 18:50 | PCM.CONS.C ---
Assessment & Plan Assessment/Plan (1) Congestive heart failure: PLAN: He does have evidence of diastolic heart failure. His estimated ejection fraction is noted to be preserved with mitral calcification and moderate pulmonary hypertension. My suspicion is that his severe anemia is contributing to some of his symptomatology. We will continue with diuresis watching his renal function. (2) Pleural effusion on left: PLAN: He does have evidence of left pleural effusion. He should be considered for thoracentesis to help with symptomatic improvement in his breathing. (3) Hypertension: PLAN: Blood pressure is better controlled at this time. He has had a renal artery stent placed and the plan to be to continue his current medical therapy. I will recommend that we increase his amlodipine to 10 mg a day. (4) Coronary artery disease: PLAN: He does have minimal coronary artery disease. He has not had any documented stress test or cardiac catheterization which has demonstrated severe obstruction. Depending on the findings further recommendations will be made. Thank you for allowing me to participate in the care of your patient. Please don't hesitate to call if any issues arise. HPI Consult Data Date of Consult: 04/05/22 HPI Narrative HPI Narrative: SHAISTA CLOUD, is a 81 M who presents progressive shortness of breath. He is a gentleman with a history of hypertension, hyperlipidemia, previous cerebrovascular accident, and hypokalemia. He had previously been seen in our office for uncontrolled high blood pressure. He does have significant peripheral vascular disease with an abnormal YANETH with moderately severe bilateral lower extremity disease.? He also has a renal artery duplex scan which demonstrated 60% stenosis of the right renal artery.? The mid abdomen also has an abdominal aortic aneurysm measuring 3 x 3 cm. He underwent a renal artery stent placement on August 05. His most recent renal artery duplex from 10/2021 demonstrated bilateral renal arteries-less than 60% stenosis. Did have some medication changes to his regimen. He was admitted to the hospital a few weeks ago and underwent diuresis. He has been persistently anemic. The etiology is not entirely clear at this time. He was admitted to the hospital with aspiration pneumonia as well as renal dysfunction and was treated and then transferred to the transitional care unit. He presents back here with weakness and shortness of breath. He denies any chest pain. He has been compliant with his medications. [facility] Medical History Absent pedal pulses Acute left-sided muscle weakness Depression Dysphagia Essential hypertension Facial droop due to acute stroke History of CVA (cerebrovascular accident) (12/2020) Hydrocele in adult Hyperlipidemia Incontinence Limb weakness Normocytic normochromic anemia Osteoarthritis Peripheral vascular occlusive disease Pneumonia Proteinuria due to type 2 diabetes mellitus Recurrent inguinal hernia of right side without obstruction or gangrene Restless legs Right pontine CVA Right renal artery stenosis Skin lesion of face SOB (shortness of breath) Type 2 diabetes mellitus Unsteadiness Ventricular tachycardia seen on monitoring manager (02/20/21) Home Medications multivitamin,gg-nrue-[id number] (Complete Multivitamin tablet) 1 tab PO QDAY supplement 03/03/17 [History Last Taken 02/23/22] aspirin 81 mg chewable tablet 81 mg PO BREAKFAST [facility] 01/02/21 [History Last Taken 02/24/22] Handicap Placard #1 ea 02/12/21 [Rx Last Taken Unknown] pen needle, diabetic 32 gauge x 5/32 (BD Sanaz 2nd Gen Pen Needle) #50 ea 06/02/21 [Rx Last Taken Unknown] carvedilol 25 mg tablet 25 mg PO BID heart 02/24/22 [History Last Taken 02/24/22] clopidogrel 75 mg tablet (Plavix) 75 mg PO DAILY blood thinner 02/24/22 [History Last Taken 02/23/22] doxazosin 8 mg tablet 8 mg PO QHS bph 02/24/22 [History Last Taken 02/23/22] ezetimibe 10 mg tablet (Zetia) 10 mg PO QHS cholesterol 02/24/22 [History Last Taken 02/23/22] ferrous sulfate 325 mg (65 mg iron) capsule,extended release 65 mg PO DAILY supplement 02/24/22 [History Last Taken 02/23/22] latanoprost 0.005 % eye drops 1 drp EACH EYE HS eyes 02/24/22 [History Last Taken 02/23/22] pramipexole 0.125 mg tablet 0.125 mg PO QHS parkinsons 02/24/22 [History Last Taken 02/23/22] sertraline 50 mg tablet 50 mg PO DAILY mood 02/24/22 [History Last Taken 02/24/22] sennosides 8.6 mg-docusate sodium 50 mg tablet (Stool Softener-Stimulant Laxative) 2 tab PO BID PRN PRN Constipation #0 tabs 02/27/22 [Rx Last Taken Unknown] acetaminophen 500 mg tablet 1,000 mg PO Q6H PRN PRN Pain Score 1-10 #0 tabs 03/09/22 [Rx Last Taken Unknown] amlodipine 5 mg tablet 5 mg PO DAILY 30 days #30 tabs 03/09/22 [Rx Last Taken Unknown] insulin lispro 100 unit/mL subcutaneous pen (Humalog KwikPen (U-100) Insulin) 5 unit subcut TIDAC 03/17/22 [History Last Taken Unknown] melatonin 10 mg sublingual tablet 10 mg PO QHS 03/17/22 [History Last Taken Unknown] gabapentin 100 mg capsule 100 mg PO BID pain #180 caps 03/18/22 [Rx Last Taken Unknown] gabapentin 300 mg capsule 300 mg PO 2100 pain #90 caps 03/18/22 [Rx Last Taken Unknown] losartan 25 mg tablet 25 mg PO DAILY 30 days #90 tabs 03/18/22 [Rx Last Taken Unknown] hydralazine 25 mg tablet 75 mg PO TID 30 days #270 tabs 03/25/22 [Rx Last Taken Unknown] hydrochlorothiazide 25 mg tablet 25 mg PO DAILY 04/05/22 [History Last Taken Unknown] insulin glargine-yfgn 100 unit/mL (3 mL) subcutaneous pen 14 unit subcut DAILY 04/05/22 [History Last Taken Unknown] Allergy/AdvReac Type Severity Reaction Status Date / Time meloxicam [From Mobic] Allergy Intermediate itching Verified 04/05/22 12:08 pravastatin [From Pravachol] AdvReac Mild myalgia Verified 04/05/22 12:08 cholestyramine AdvReac hypoglycemi Verified 04/05/22 12:08 a Family History Mother Hypertension Cancer Father Heart disease Diabetes Surgical History History of cataract surgery History of herniorrhaphy History of lumbar laminectomy History of stent insertion of renal artery (08/05/21) Status post laser cataract surgery of left eye Social History household members: spouse and other details: Abigail is his 's name housing: house number of children: 2 current occupational status: retired and other details: worked for [employer] prior to retiring leisure activities: other Smoking Status: Never smoker Electronic Cigarette Use: not used alcohol intake: former substance use type: does not use what type of physical activity do you participate in: walking frequency: 1-2 times per week ROS Constitutional Constitutional: Denies fever(s) or weight loss Eyes Eyes: Reports systems reviewed and no addt'l complaints, except as documented ENT HEENT: Reports systems reviewed and no addt'l complaints, except as documented Cardiovascular Cardiovascular: Reports dyspnea at rest and dyspnea on exertion; Denies chest pain at rest, chest pain with activity, edema, palpitations or paroxysmal nocturnal dyspnea Respiratory/Chest Respiratory/Chest: Reports dyspnea on exertion, shortness of breath at rest and shortness of breath with exertion; Denies productive cough Gastrointestinal Gastrointestinal: Denies change in bowel habits, nausea, vomiting or weight changes Genitourinary Genitourinary: Denies difficulty urinating Musculoskeletal Musculoskeletal: Denies joint stiffness or muscle weakness Integumentary Integumentary: Denies lesions Neurologic Neurologic: Denies dizziness or syncope Psychiatric Psychiatric: Denies anxiety Endocrine Endocrinology: Denies excessive sweating or fatigue Hematologic/Lymphatic Hematologic/Lymphatic: Denies anemia Allergic/Immunologic Allergic/Immunologic: Denies seasonal rhinorrhea Physical Exam Const alert, oriented x3 and no apparent distress General Appearance: cooperative HEENT hearing grossly normal bilaterally Head and Scalp: atraumatic Eyes EOMs intact bilaterally Neck General: normal visual inspection Chest inspection of chest normal and palpation of chest normal Resp normal respiratory effort Auscultation: diminished lung sounds Cardio regular rate, regular rhythm, S1 normal heart sound and S2 normal heart sound Jugular Venous Distention: JVD GI normal to inspection, nondistended, normoactive bowel sounds Extremity normal capillary refill General Extremity: edema Peripheral Pulses: Yes pulses 2+ throughout and femoral pulses present Skin no rashes or lesions noted Neuro oriented x3 and CN's II-XII intact bilaterally Psych Appearance: grossly normal and appropriate Risk Stratification Risk Stratification Applicable: No Objective Data Vital Signs: Vital Signs Temp Pulse Resp BP Pulse Ox O2 Del Method O2 Flow Rate 98.3 F 65 18 162/68 H 93 Nasal Cannula 2 04/05/22 18:28 04/05/22 18:28 04/05/22 18:28 04/05/22 18:28 04/05/22 18:28 04/05/22 18:28 04/05/22 18:28 Oxygen Flow Rate (L/min) 2 Oxygen Delivery Method Nasal Cannula Weight: 189 lb 6.033 oz Body Mass Index (BMI) 25.6 Intake & Output: Intake and Output for Last 24 Hours 04/03/22 04/04/22 04/05/22 23:59 23:59 23:59 Output Total 325 / 325 Balance -325 / -325 Lab / Micro Data Result Diagrams: 04/05/22 13:15 04/05/22 13:15 Labs: Laboratory Results - last 24 hr 04/05/22 13:15: WBC 9.0, RBC 3.07 L, Hgb 8.6 L, Hct 27.4 L, MCV 89.3, MCH 28.0, MCHC 31.4 L, RDW Std Deviation 46.4 H, RDW Coeff of Cait 14.4, Plt Count 289, MPV 10.4, Immature Gran % (Auto) 0.100, Neut % (Auto) 69.3, Lymph % (Auto) 10.3 L, [place] % (Auto) 14.2 H, Eos % (Auto) 5.4 H, Baso % (Auto) 0.7, Absolute Neuts (auto) 6.2, Absolute Lymphs (auto) 0.93, Nucleated RBC % 0 04/05/22 13:15: Sodium 139, Potassium 3.8, Chloride 107, Carbon Dioxide 24.0, Anion Gap 8, BUN 35 H, Creatinine 1.76 H, Estim Creat Clear Calc 35.52, Est GFR (MDRD) Af Amer 48 L, Est GFR (MDRD) Non-Af 40 L, BUN/Creatinine Ratio 19.9, Glucose 136 H, Calcium 9.0, Troponin I High Sens 10 04/05/22 13:15: Lactic Acid 1.0 04/05/22 13:15: B-Natriuretic Peptide 282.1 H 04/05/22 15:34: Troponin I High Sens 11 Cardiology Labs/Tests 04/05/22 13:15: WBC 9.0, RBC 3.07 L, Hgb 8.6 L, Hct 27.4 L, MCV 89.3, MCH 28.0, MCHC 31.4 L, Plt Count 289, MPV 10.4, Immature Gran % (Auto) 0.100, Neut % (Auto) 69.3, Lymph % (Auto) 10.3 L, [place] % (Auto) 14.2 H, Eos % (Auto) 5.4 H, Baso % (Auto) 0.7, Absolute Neuts (auto) 6.2, Nucleated RBC % 0 04/05/22 13:15: Sodium 139, Potassium 3.8, Chloride 107, Carbon Dioxide 24.0, Anion Gap 8, BUN 35 H, Creatinine 1.76 H, Est GFR (MDRD) Af Amer 48 L, Est GFR (MDRD) Non-Af 40 L, BUN/Creatinine Ratio 19.9, Glucose 136 H, Calcium 9.0 04/05/22 13:15: Lactic Acid 1.0 04/05/22 13:15: B-Natriuretic Peptide 282.1 H Rhythm: EKG: ECHO: Stress Test: Cardiac Cath: PCI: CT Surgery: Holter monitor: EPS: PPM: CXR: Chest CT Scan:
[2022-04-05] MEDS: Gabapentin 300 MG Capsule PO (21:08)
[2022-04-05] MEDS: Latanoprost 0.005% 1 Bottle 1 DRP EACH EYE (21:09)
[2022-04-05] MEDS: Pramipexole Di-HCl 0.125 MG Tablet PO (21:12)
[2022-04-05] MEDS: Ezetimibe 10 MG Tablet PO (21:12)
[2022-04-05] MEDS: Carvedilol 25 MG Tablet PO (21:13)
[2022-04-05] MEDS: Doxazosin 4 MG Tablet 8 MG PO (21:13)
[2022-04-05] MEDS: hydrALAZINE 25 MG Tablet 75 MG PO (21:14)
[2022-04-05 21:34] LABS: Troponin-I HS 11 pg/mL (3.0-78.0)
[2022-04-05] MEDS: Insulin Lispro 100 UNIT/ML INSULN.PEN SC (22:06)
--- NOTE | 2022-04-05 23:20 | CPS ---
pts own bipap set up -distilled water added- unable to add o2 to pt's tubing-sat on ra 91%
[2022-04-06] VITALS (13 sets, daily range): BP systolic 127–154; BP diastolic 46–63; PULSE 52–71; RESP 16–20; TEMP 36.4–37.1; O2SAT 92–97
[2022-04-06 03:46] LABS: Bedside Glucose 231 mg/dL (74-106)
[2022-04-06 05:43] LABS: Absolute Lymphocyte Count 1.05 X10^3/uL (0.83-4.51); Absolute Neutrophil Count 4.6 X10^3/uL (2.0-7.7); Basophil# 0.07 X10^3/uL; Basophil% 0.9 % (0-1); Eosinophil# 0.66 X10^3/uL; Eosinophils% 8.7 % (0-5); Hematocrit 23.6 % (40-54); Hemoglobin 7.7 g/dL (13.0-16.5); Lymphocyte # 1.05 X10^3/ul (0.83-4.51); Lymphocyte % 13.8 % (19-41); Mean Corp Hgb Conc 32.6 g/dL (32-36); Mean Corpuscular Hgb 29.2 pg (27.0-32.0); Mean Corpuscular Volume 89.4 fL (80-94); Mean Platelet Vol. 10.7 fl (6.2-12.0); Monocyte# 1.15 X10^3/uL; Monocyte% 15.2 % (0-10); NRBC Flagged by Analyzer 0 % (0-5); Neutrophil # 4.64 X10^3/uL (2.7-7.7); Neutrophil % 61.1 % (47-70); Platelet Count 275 K/mm3 (150-450); RBC Distribution Width CV 14.3 % (11.6-14.6); RBC Distribution Width SD 46.9 fl (35.1-43.9); Red Blood Count 2.64 M/mm3 (4.6-6.2); White Blood Count 7.6 K/mm3 (4.4-11.0)
[2022-04-06 06:08] LABS: Anion Gap 8 (5-15); BUN 38 mg/dL (7-18); BUN/Creat Ratio 20.7 RATIO (10-20); Calcium,Total 8.5 mg/dL (8.5-10.1); Chloride 105 mmol/L (98-107); Creatinine, Serum 1.84 mg/dL (0.70-1.30); EST Glomerular Filtration Rate 38 mL/min (>60); Est Glom Filt Rate - Afr Amer 45 mL/min (>60); Estimated Creatinine Clearance 33.97 ml/min; Glucose 121 mg/dL (74-106); Potassium 3.3 mmol/L (3.5-5.1); Sodium Level 140 mmol/L (136-145)
[2022-04-06] MEDS: hydrALAZINE 25 MG Tablet 75 MG PO ×3 (06:10→20:20)
[2022-04-06 07:10] LABS: Bedside Glucose 122 mg/dL (74-106)
--- NOTE | 2022-04-06 07:23 | PN.CARD_ITS ---
Subjective Subjective Patient seen and evaluated. Appears to be somewhat better this morning. Objective Data Vital Signs: Vital Signs Temp Pulse Resp BP Pulse Ox O2 Del Method O2 Flow Rate 97.8 F 60 16 142/55 H 92 Bi-pap 3 04/06/22 04:12 04/06/22 06:10 04/06/22 04:12 04/06/22 06:10 04/06/22 04:12 04/06/22 04:12 04/05/22 23:00 Oxygen Flow Rate (L/min) 3 Oxygen Delivery Method Bi-pap Weight: 189 lb 6.033 oz Body Mass Index (BMI) 25.6 Intake & Output: Intake and Output for Last 24 Hours 04/04/22 04/05/22 04/06/22 23:59 23:59 23:59 Output Total 825 / 825 650 / 650 Balance -825 / -825 -650 / -650 Lab / Micro Data Result Diagrams: 04/06/22 04:33 04/06/22 04:33 Labs: Laboratory Results - last 24 hr 04/05/22 13:15: WBC 9.0, RBC 3.07 L, Hgb 8.6 L, Hct 27.4 L, MCV 89.3, MCH 28.0, MCHC 31.4 L, RDW Std Deviation 46.4 H, RDW Coeff of Cait 14.4, Plt Count 289, MPV 10.4, Immature Gran % (Auto) 0.100, Neut % (Auto) 69.3, Lymph % (Auto) 10.3 L, [place] % (Auto) 14.2 H, Eos % (Auto) 5.4 H, Baso % (Auto) 0.7, Absolute Neuts (auto) 6.2, Absolute Lymphs (auto) 0.93, Nucleated RBC % 0 04/05/22 13:15: Sodium 139, Potassium 3.8, Chloride 107, Carbon Dioxide 24.0, Anion Gap 8, BUN 35 H, Creatinine 1.76 H, Estim Creat Clear Calc 35.52, Est GFR (MDRD) Af Amer 48 L, Est GFR (MDRD) Non-Af 40 L, BUN/Creatinine Ratio 19.9, Glucose 136 H, Calcium 9.0, Troponin I High Sens 10 04/05/22 13:15: Lactic Acid 1.0 04/05/22 13:15: B-Natriuretic Peptide 282.1 H 04/05/22 15:34: Troponin I High Sens 11 04/05/22 20:30: Troponin I High Sens 11 04/05/22 21:31: POC Glucose 231 H 04/06/22 04:33: WBC 7.6, RBC 2.64 L, Hgb 7.7 L, Hct 23.6 L, MCV 89.4, MCH 29.2, MCHC 32.6, RDW Std Deviation 46.9 H, RDW Coeff of Cait 14.3, Plt Count 275, MPV 10.7, Immature Gran % (Auto) 0.300, Neut % (Auto) 61.1, Lymph % (Auto) 13.8 L, [place] % (Auto) 15.2 H, Eos % (Auto) 8.7 H, Baso % (Auto) 0.9, Absolute Neuts (auto) 4.6, Absolute Lymphs (auto) 1.05, Nucleated RBC % 0 04/06/22 04:33: Sodium 140, Potassium 3.3 L, Chloride 105, Carbon Dioxide 27.0, Anion Gap 8, BUN 38 H, Creatinine 1.84 H, Estim Creat Clear Calc 33.97, Est GFR (MDRD) Af Amer 45 L, Est GFR (MDRD) Non-Af 38 L, BUN/Creatinine Ratio 20.7 H, Glucose 121 H, Calcium 8.5 04/06/22 06:54: POC Glucose 122 H Cardiology Labs/Tests 04/05/22 13:15: WBC 9.0, RBC 3.07 L, Hgb 8.6 L, Hct 27.4 L, MCV 89.3, MCH 28.0, MCHC 31.4 L, Plt Count 289, MPV 10.4, Immature Gran % (Auto) 0.100, Neut % (Auto) 69.3, Lymph % (Auto) 10.3 L, [place] % (Auto) 14.2 H, Eos % (Auto) 5.4 H, Baso % (Auto) 0.7, Absolute Neuts (auto) 6.2, Nucleated RBC % 0 04/05/22 13:15: Sodium 139, Potassium 3.8, Chloride 107, Carbon Dioxide 24.0, Anion Gap 8, BUN 35 H, Creatinine 1.76 H, Est GFR (MDRD) Af Amer 48 L, Est GFR (MDRD) Non-Af 40 L, BUN/Creatinine Ratio 19.9, Glucose 136 H, Calcium 9.0 04/05/22 13:15: Lactic Acid 1.0 04/05/22 13:15: B-Natriuretic Peptide 282.1 H 04/06/22 04:33: WBC 7.6, RBC 2.64 L, Hgb 7.7 L, Hct 23.6 L, MCV 89.4, MCH 29.2, MCHC 32.6, Plt Count 275, MPV 10.7, Immature Gran % (Auto) 0.300, Neut % (Auto) 61.1, Lymph % (Auto) 13.8 L, [place] % (Auto) 15.2 H, Eos % (Auto) 8.7 H, Baso % (Auto) 0.9, Absolute Neuts (auto) 4.6, Nucleated RBC % 0 04/06/22 04:33: Sodium 140, Potassium 3.3 L, Chloride 105, Carbon Dioxide 27.0, Anion Gap 8, BUN 38 H, Creatinine 1.84 H, Est GFR (MDRD) Af Amer 45 L, Est GFR (MDRD) Non-Af 38 L, BUN/Creatinine Ratio 20.7 H, Glucose 121 H, Calcium 8.5 Rhythm: EKG: ECHO: Stress Test: Cardiac Cath: PCI: CT Surgery: Holter monitor: EPS: PPM: CXR: Chest CT Scan: Physical Exam Const alert, oriented x3 and no apparent distress General Appearance: cooperative HEENT hearing grossly normal bilaterally Head and Scalp: atraumatic Eyes EOMs intact bilaterally Neck General: normal visual inspection Chest inspection of chest normal and palpation of chest normal Resp normal respiratory effort Auscultation: diminished lung sounds Cardio regular rate, regular rhythm, S1 normal heart sound and S2 normal heart sound Jugular Venous Distention: JVD GI normal to inspection, nondistended, normoactive bowel sounds Extremity normal capillary refill General Extremity: edema Peripheral Pulses: Yes pulses 2+ throughout and femoral pulses present Skin no rashes or lesions noted Neuro oriented x3 and CN's II-XII intact bilaterally Psych Appearance: grossly normal and appropriate Assessment & Plan Assessment/Plan (1) Congestive heart failure: PLAN: He does have evidence of diastolic heart failure. His estimated ejection fraction is noted to be preserved with mitral calcification and moderate pulmona ry hypertension. My suspicion is that his severe anemia is contributing to some of his symptomatology. We will continue with diuresis watching his renal function. (2) Pleural effusion on left: PLAN: He does have evidence of left pleural effusion. He should be considered for thoracentesis to help with symptomatic improvement in his breathing. (3) Hypertension: PLAN: Blood pressure is better controlled at this time. He has had a renal artery stent placed and the plan to be to continue his current medical therapy. I will recommend that we increase his amlodipine to 10 mg a day. (4) Coronary artery disease: PLAN: He does have minimal coronary artery disease. He has not had any documented stress test or cardiac catheterization which has demonstrated severe obstruction. Depending on the findings further recommendations will be made. * Will likely consider pharmacologic stress test prior to discharge Thank you for allowing me to participate in the care of your patient. Please don't hesitate to call if any issues arise.
--- NOTE | 2022-04-06 07:48 | PN.HOSP_ITS ---
Subjective Subjective Follow-up for heart failure exacerbation, left pleural effusion Objective Data Objective Data Vital Signs: Vital Signs Temp Pulse Resp BP Pulse Ox O2 Del Method O2 Flow Rate 97.8 F 60 16 142/55 H 92 Bi-pap 3 04/06/22 04:12 04/06/22 06:10 04/06/22 04:12 04/06/22 06:10 04/06/22 04:12 04/06/22 04:12 04/05/22 23:00 Oxygen Flow Rate (L/min) 3 Oxygen Delivery Method Bi-pap Weight: 189 lb 6.033 oz Body Mass Index (BMI) 25.6 Intake & Output: Intake and Output for Last 24 Hours 04/04/22 04/05/22 04/06/22 23:59 23:59 23:59 Output Total 825 / 825 650 / 650 Balance -825 / -825 -650 / -650 Lab / Micro Data Result Diagrams: 04/06/22 04:33 04/06/22 04:33 Labs: Laboratory Results - last 24 hr 04/05/22 13:15: WBC 9.0, RBC 3.07 L, Hgb 8.6 L, Hct 27.4 L, MCV 89.3, MCH 28.0, MCHC 31.4 L, RDW Std Deviation 46.4 H, RDW Coeff of Cait 14.4, Plt Count 289, MPV 10.4, Immature Gran % (Auto) 0.100, Neut % (Auto) 69.3, Lymph % (Auto) 10.3 L, [place] % (Auto) 14.2 H, Eos % (Auto) 5.4 H, Baso % (Auto) 0.7, Absolute Neuts (auto) 6.2, Absolute Lymphs (auto) 0.93, Nucleated RBC % 0 04/05/22 13:15: Sodium 139, Potassium 3.8, Chloride 107, Carbon Dioxide 24.0, Anion Gap 8, BUN 35 H, Creatinine 1.76 H, Estim Creat Clear Calc 35.52, Est GFR (MDRD) Af Amer 48 L, Est GFR (MDRD) Non-Af 40 L, BUN/Creatinine Ratio 19.9, Glucose 136 H, Calcium 9.0, Troponin I High Sens 10 04/05/22 13:15: Lactic Acid 1.0 04/05/22 13:15: B-Natriuretic Peptide 282.1 H 04/05/22 15:34: Troponin I High Sens 11 04/05/22 20:30: Troponin I High Sens 11 04/05/22 21:31: POC Glucose 231 H 04/06/22 04:33: WBC 7.6, RBC 2.64 L, Hgb 7.7 L, Hct 23.6 L, MCV 89.4, MCH 29.2, MCHC 32.6, RDW Std Deviation 46.9 H, RDW Coeff of Cait 14.3, Plt Count 275, MPV 10.7, Immature Gran % (Auto) 0.300, Neut % (Auto) 61.1, Lymph % (Auto) 13.8 L, [place] % (Auto) 15.2 H, Eos % (Auto) 8.7 H, Baso % (Auto) 0.9, Absolute Neuts (auto) 4.6, Absolute Lymphs (auto) 1.05, Nucleated RBC % 0 04/06/22 04:33: Sodium 140, Potassium 3.3 L, Chloride 105, Carbon Dioxide 27.0, Anion Gap 8, BUN 38 H, Creatinine 1.84 H, Estim Creat Clear Calc 33.97, Est GFR (MDRD) Af Amer 45 L, Est GFR (MDRD) Non-Af 38 L, BUN/Creatinine Ratio 20.7 H, Glucose 121 H, Calcium 8.5 04/06/22 06:54: POC Glucose 122 H Physical Exam Narrative Seen and examined. Physical exam General: Alert, Oriented x3, Cooperative HEENT: Atraumatic, PERRLA, EOMI, Normocephalic Oral: Oral mucosa moist. No Gingival or Mucosal Lesions/ Ulcerations Neck: Supple, No JVD, Negative Carotid Bruits Lungs: Air entry diminished more in the left lung base, left pleural effusion. Mild expiratory rhonchi. Cardiovascular: Sinus rhythm normal S1, Normal S2, systolic murmur over LLSB and cardiac apex Abdomen: Bowel Sounds Present, Soft, Non Tender, Non-Distended : No renal angle tenderness. No suprapubic tenderness. Extremities: Bilateral pedal pitting edema, 2+. Capillary Refill Less than 3 Seconds Skin: No rashes, No breakdown Musculoskeletal: No Tenderness to Palpation of Joints or Extremities, ROM intact. Neurological: Cranial nerves II-XII grossly intact, DTR 2+/4 and Symmetrical, Neuro grossly intact Psych/Mental Status: Normal Affect, Appropriate. Assessment & Plan Assessment/Plan (1) Congestive heart failure: (2) Pleural effusion on left: PLAN: Plan This is 81-year-old gentleman who was admitted for shortness of breath for 2 weeks with no orthopnea or PND. No chest pain palpitation fever or chills. #Acute exacerbation of heart failure * Admitted to PCU 04/06: Repeat left decubitus chest x-ray ordered to look for drainable left pleural effusion.On Lasix 40 mg IV twice daily. Heart failure core measures including intake and output, fluid restriction less than 1500 mL, daily weight monitoring, kidney and electrolytes monitoring. The echo is ordered. EKG did not show acute change. Patient did not have chest pain or pressure therefore unlikely ACS. 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 His blood pressure was 159/64 and heart rate 66 in ED. In the morning blood pressure normal. At one time in the past patient was on clonidine but probably high dose was given by mistake at home therefore patient was admitted with bradycardia, heart rate 30s. Kidney Doppler in 2021 shows stenosis of right- sided s/p renal angioplasty in July 2021. Follow-up renal Doppler did not show any stenosis. No suspicion for Conn syndrome as potassium is normal tonight. When creatinine stabilizes we will consider HCTZ or increasing the dose of losartan #Anemia: Hb is 8.6. 04/06: Hemoglobin dropped to 7.7. Platelet count normal 275,000. #CKD 3a: Cr is 1.76. This is around his baseline. eGFR is 40. On baseline, albumin creatinine ratio less than 30 mg/g. 04/06: Creatinine went up to 1.84, BUN 38. Fundraising Sale Representative consulted for CKD and h ypertension diuretic management. Urine ordered for protein creatinine ratio. #Type 2 diabetes mellitus: on lantus 14 units daily. ISS. Accuchecks ACHS. #Depression: on sertraline. DVT prophylaxis: lovenox Code status: full code Total time of the visit including total time spent in counseling or coordination of care, (more than 50% of the total time, spent in obtaining medical information from nurses and other ancillary care providers,explaining to the patient about labs, imaging, diagnosis and management of active complex medical conditions), discussion on different diagnosis to the daughter including CKD, hypertension and heart failure, discussion with the chipper and cardiolog ist, review of labs and imaging is 50 minutes. Laboratory Results 04/05/22 15:34: Troponin I High Sens 11 04/05/22 20:30: Troponin I High Sens 11 04/05/22 21:31: POC Glucose 231 H 04/06/22 04:33: WBC 7.6, RBC 2.64 L, Hgb 7.7 L, Hct 23.6 L, MCV 89.4, MCH 29.2, MCHC 32.6, RDW Std Deviation 46.9 H, RDW Coeff of Cait 14.3, Plt Count 275, MPV 10.7, Immature Gran % (Auto) 0.300, Neut % (Auto) 61.1, Lymph % (Auto) 13.8 L, [place] % (Auto) 15.2 H, Eos % (Auto) 8.7 H, Baso % (Auto) 0.9, Absolute Neuts (auto) 4.6, Absolute Lymphs (auto) 1.05, Nucleated RBC % 0 04/06/22 04:33: Sodium 140, Potassium 3.3 L, Chloride 105, Carbon Dioxide 27.0, Anion Gap 8, BUN 38 H, Creatinine 1.84 H, Estim Creat Clear Calc 33.97, Est GFR (MDRD) Af Amer 45 L, Est GFR (MDRD) Non-Af 38 L, BUN/Creatinine Ratio 20.7 H, Glucose 121 H, Calcium 8.5 04/06/22 06:54: POC Glucose 122 H 04/06/22 12:36: POC Glucose 181 H Charges/Coding Visit Charges Inpatient E&M: 71121 Subs Hosp L3
[2022-04-06] MEDS: Multivitamins,Ther W-Minerals Tablet 1 TABLET PO (08:42)
[2022-04-06] MEDS: Gabapentin 100 MG Capsule PO ×2 (08:59→17:12)
[2022-04-06] MEDS: Losartan Potassium 25 MG Tablet PO (09:12)
[2022-04-06] MEDS: Enoxaparin 30 MG/0.3 ML Syringe SC (09:12)
[2022-04-06] MEDS: Carvedilol 25 MG Tablet PO ×2 (09:12→20:50)
[2022-04-06] MEDS: Furosemide 40 MG/4 ML Vial IV ×2 (09:13→17:12)
[2022-04-06] MEDS: Sertraline 50 MG Tablet PO (09:14)
[2022-04-06] MEDS: amLODIPine 5 MG Tablet PO (09:14)
[2022-04-06] MEDS: Clopidogrel Bisulfate 75 MG Tablet PO (09:14)
--- NOTE | 2022-04-06 11:11 | CON.PCM.RE_ITS ---
Assessment & Plan Assessment/Plan (1) Chronic kidney disease (CKD) stage G3a/A1, moderately decreased glomerular filtration rate (GFR) between 45-59 mL/min/1.73 square meter and albuminuria creatinine ratio less than 30 mg/g: PLAN: His creatinine in 2020 was normal/close to normal at 1.0-1.1. Over the last 1 year due to other changes, creatinine values have fluctuated significantly. Baseline creatinine seems to be between 1.3-1.5. Creatinine now is slightly higher, presumably due to diuresis. Urine analysis shows some proteinuria we will send for quantification renal ultrasound without any hydronephrosis. Nearly symmetrical kidneys. Most likely creatinine changes are related to other ongoing events. (2) Hypertension: PLAN: Has been dealing with hypertension for last 1 year. Reviewed records. Renal Doppler from beginning of 2021 showed stenosis on the right side, s/p renal angioplasty on the right side in July 2021. Follow-up renal Doppler did not show any stenosis. I do not have suspicion for Conn syndrome since his potassium is normal to high. It seems he was on Diovan, hydrochlorothiazide, Aldactone at some point in the past and was taken off due to creatinine changes. Currently he is on losartan 25 mg once a day, amlodipine 5 mg once a day, Coreg 25 mg twice a day, hydralazine 3 times a day,alpha blockers. He was prescribed Clonidine, developed bradycardia. There was a question if a higher than recommended dose was given. Heart rate is around 65. I think he needs to go back on some form of diuretics. Currently is on Lasix 40 twice a day. BNP is only about 250, chest x-ray shows left-sided effusion. Will reevaluate tomorrow. Discussed with Dr. Umanzor. Might need a pleural tap tomorrow Will add chlorthalidone at the time of discharge. Once creatinine stabilizes, will increase losartan. HPI Consult Data Date of Consult: 04/06/22 HPI Narrative Reason for Consultation: Hypertension, CKD 3B HPI Narrative: SHAISTA CLOUD, is a 81 M who presents the hospital with shortness of breath. Nephrology on consultation in view of hypertension. Has been dealing with blood pressure issues over the last 1 year. Saw cardiology here and hypertension specialty in [facility]. Hospitalized here in February with what looks like aspiration pneumonia, suspected fluid overload. Has been on various different combinations of medications. Current medication list listed as below. Does not use oxygen at home much. Currently on oxygen. Being treated for suspected congestive heart failure. Blood pressure is acceptable. [facility] Medical History Absent pedal pulses Acute left-sided muscle weakness Depression Dysphagia Essential hypertension Facial droop due to acute stroke History of CVA (cerebrovascular accident) (12/2020) Hydrocele in adult Hyperlipidemia Incontinence Limb weakness Normocytic normochromic anemia Osteoarthritis Peripheral vascular occlusive disease Pneumonia Proteinuria due to type 2 diabetes mellitus Recurrent inguinal hernia of right side without obstruction or gangrene Restless legs Right pontine CVA Right renal artery stenosis Skin lesion of face SOB (shortness of breath) Type 2 diabetes mellitus Unsteadiness Ventricular tachycardia 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 on 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 (02/20/21) Home Medications multivitamin,[id number] (Complete Multivitamin tablet) 1 tab PO QDAY supplement 03/03/17 [History Last Taken 02/23/22] aspirin 81 mg chewable tablet 81 mg PO BREAKFAST heart health 01/02/21 [History Last Taken 02/24/22] Handicap Placard #1 ea 02/12/21 [Rx Last Taken Unknown] pen needle, diabetic 32 gauge x 5/32 (BD Sanaz 2nd Gen Pen Needle) #50 ea 06/02/21 [Rx Last Taken Unknown] carvedilol 25 mg tablet 25 mg PO BID heart 02/24/22 [History Last Taken 02/24/22] clopidogrel 75 mg tablet (Plavix) 75 mg PO DAILY blood thinner 02/24/22 [History Last Taken 02/23/22] doxazosin 8 mg tablet 8 mg PO QHS bph 02/24/22 [History Last Taken 02/23/22] ezetimibe 10 mg tablet (Zetia) 10 mg PO QHS cholesterol 02/24/22 [History Last T aken 02/23/22] ferrous sulfate 325 mg (65 mg iron) capsule,extended release 65 mg PO DAILY supplement 02/24/22 [History Last Taken 02/23/22] latanoprost 0.005 % eye drops 1 drp EACH EYE HS eyes 02/24/22 [History Last Taken 02/23/22] pramipexole 0.125 mg tablet 0.125 mg PO QHS parkinsons 02/24/22 [History Last Taken 02/23/22] sertraline 50 mg tablet 50 mg PO DAILY mood 02/24/22 [History Last Taken 02/24/22] sennosides 8.6 mg-docusate sodium 50 mg tablet (Stool Softener-Stimulant Laxative) 2 tab PO BID PRN PRN Constipation #0 tabs 02/27/22 [Rx Last Taken Unknown] acetaminophen 500 mg tablet 1,000 mg PO Q6H PRN PRN Pain Score 1-10 #0 tabs 03/09/22 [Rx Last Taken Unknown] amlodipine 5 mg tablet 5 mg PO DAILY 30 days #30 tabs 03/09/22 [Rx Last Taken Unknown] insulin lispro 100 unit/mL subcutaneous pen (Humalog KwikPen (U-100) Insulin) 5 unit subcut TIDAC PRN sugar 03/17/22 [History Last Taken Unknown] gabapentin 100 mg capsule 100 mg PO BID pain #180 caps 03/18/22 [Rx Last Taken Unknown] gabapentin 300 mg capsule 300 mg PO 2100 pain #90 caps 03/18/22 [Rx Last Taken Unknown] losartan 25 mg tablet 25 mg PO DAILY 30 days #90 tabs 03/18/22 [Rx Last Taken Unknown] hydralazine 25 mg tablet 75 mg PO TID 30 days #270 tabs 03/25/22 [Rx Last Taken Unknown] hydrochlorothiazide 25 mg tablet 25 mg PO DAILY 04/05/22 [History Last Taken Unknown] insulin glargine-yfgn 100 unit/mL (3 mL) subcutaneous pen 14 unit subcut DAILY 04/05/22 [History Last Taken Unknown] Allergy/AdvReac Type Severity Reaction Status Date / Time meloxicam [From Mobic] Allergy Intermediate itching Verified 04/05/22 12:08 pravastatin [From Pravachol] AdvReac Mild myalgia Verified 04/05/22 12:08 cholestyramine AdvReac hypoglycemi Verified 04/05/22 12:08 a Family History Mother Hypertension Cancer Father Heart disease Diabetes Surgical History History of cataract surgery History of herniorrhaphy History of lumbar laminectomy History of stent insertion of renal artery (08/05/21) Status post laser cataract surgery of left eye Social History household members: spouse and other details: Abigail is his 's name housing: house number of children: 2 current occupational status: retired and other details: worked for [employer] prior to retiring leisure activities: other Smoking Status: Never smoker Electronic Cigarette Use: not used alcohol intake: former substance use type: does not use what type of physical activity do you participate in: walking frequency: 1-2 times per week ROS ROS Narrative Negative except above Physical Exam Narrative Alert awake oriented x 3 no obvious distress no pallor no icterus no JVD s1s2 no murmurs lungs clear abdomen soft no organomegaly no edema no cyanosis Lab / Micro Data Result Diagrams: 04/06/22 04:33 04/06/22 04:33 Labs: Laboratory Results - last 24 hr 04/05/22 13:15: WBC 9.0, RBC 3.07 L, Hgb 8.6 L, Hct 27.4 L, MCV 89.3, MCH 28.0, MCHC 31.4 L, RDW Std Deviation 46.4 H, RDW Coeff of Cait 14.4, Plt Count 289, MPV 10.4, Immature Gran % (Auto) 0.100, Neut % (Auto) 69.3, Lymph % (Auto) 10.3 L, [place] % (Auto) 14.2 H, Eos % (Auto) 5.4 H, Baso % (Auto) 0.7, Absolute Neuts (auto) 6.2, Absolute Lymphs (auto) 0.93, Nucleated RBC % 0 04/05/22 13:15: Sodium 139, Potassium 3.8, Chloride 107, Carbon Dioxide 24.0, Anion Gap 8, BUN 35 H, Creatinine 1.76 H, Estim Creat Clear Calc 35.52, Est GFR (MDRD) Af Amer 48 L, Est GFR (MDRD) Non-Af 40 L, BUN/Creatinine Ratio 19.9, Glucose 136 H, Calcium 9.0, Troponin I High Sens 10 04/05/22 13:15: Lactic Acid 1.0 04/05/22 13:15: B-Natriuretic Peptide 282.1 H 04/05/22 15:34: Troponin I High Sens 11 04/05/22 20:30: Troponin I High Sens 11 04/05/22 21:31: POC Glucose 231 H 04/06/22 04:33: WBC 7.6, RBC 2.64 L, Hgb 7.7 L, Hct 23.6 L, MCV 89.4, MCH 29.2, MCHC 32.6, RDW Std Deviation 46.9 H, RDW Coeff of Cait 14.3, Plt Count 275, MPV 10.7, Immature Gran % (Auto) 0.300, Neut % (Auto) 61.1, Lymph % (Auto) 13.8 L, [place] % (Auto) 15.2 H, Eos % (Auto) 8.7 H, Baso % (Auto) 0.9, Absolute Neuts ( auto) 4.6, Absolute Lymphs (auto) 1.05, Nucleated RBC % 0 04/06/22 04:33: Sodium 140, Potassium 3.3 L, Chloride 105, Carbon Dioxide 27.0, Anion Gap 8, BUN 38 H, Creatinine 1.84 H, Estim Creat Clear Calc 33.97, Est GFR (MDRD) Af Amer 45 L, Est GFR (MDRD) Non-Af 38 L, BUN/Creatinine Ratio 20.7 H, Glucose 121 H, Calcium 8.5 04/06/22 06:54: POC Glucose 122 H
--- NOTE | 2022-04-06 11:40 | CASEMGMT ---
RN CM Face to Face with patient for initial transition planning/care coordination assessment. RN CM introduced self and role at [facility]. Patient sitting in chair, alert and oriented, and daughter at bedside. Patient willing to participate in assessment and is able to answer all questions appropriately. Care providers, pharmacy, and demographics verified. Patient wishes to discharge home, declines HHC. Patient and family willing for patient to go to TCU if recommended. Patient states he has no further needs or concerns at this time. CM to follow for discharge planning needs that may arise. PCP: Shukri Specialists: Jazmine, gill net stringer; Yvan, billing department supervisor; [facility], King, policy checker; Gerson, gasoline finisher Preferred Pharmacy: [facility] Insurance: [facility] Prescription Benefit: yes Living Will/HPOA: yes, Malka Thomas LNOK: , daughter Living Arrangements: Patient live with in a single story home with 3 steps and railing to enter the home. assists with ADLs at home. Transportation: , daughter DME/HHC: Patient has shower chair, raised toilet, hospital bed, wheelchair, grab bars, pulse ox, bipap, home oxygen with portability through [employer]. Patient has been to TCU in the past. Patient has had [facility] HHC in the past. Disposition Plan: TBD will monitor progress with therapy, anticipate TCU vs home. Tish SIBLEY, RN, CM
[2022-04-06] MEDS: Ferrous Sulfate 325 MG Tablet PO (12:34)
[2022-04-06] MEDS: Potassium Chloride Oral Tablet 20 MEQ 40 MEQ PO (12:34)
[2022-04-06] MEDS: Insulin Glargine-YFGN 100 UNIT/ML Pen 14 UNIT SC (12:39)
[2022-04-06] MEDS: Insulin Lispro 100 UNIT/ML INSULN.PEN SC ×3 (12:40→23:44)
[2022-04-06 13:36] LABS: Bedside Glucose 181 mg/dL (74-106)
--- NOTE | 2022-04-06 15:10 | RAD_ITS ---
STUDY: X-RAY CHEST REASON FOR EXAM: Male, 81 years old. left pleural effusion TECHNIQUE: 2 view frontal and left decubitus COMPARISON: April 05, 2022 FINDINGS: Right interstitial infiltrate. Moderate left pleural effusion does not appear loculated. Normal size heart. Normal mediastinum and arianne. Normal visualized pulmonary arteries. Normal visualized aortic arch and descending thoracic aorta. Normal visualized thoracic spine. Normal visualized ribs, clavicles, and shoulders. There is no demonstrated abnormality of the visualized soft tissue structures of the upper abdomen. RAD/Special CXR (Obl/Decub/A/L) IMPRESSION: Right-sided infiltrate increased and stable moderate left pleural effusion Electronically Signed: Phil Lema MD at 17:57 EST ,
[2022-04-06] MEDS: Latanoprost 0.005% 1 Bottle 1 DRP EACH EYE (20:20)
[2022-04-06] MEDS: Pramipexole Di-HCl 0.125 MG Tablet PO (20:21)
[2022-04-06] MEDS: Ezetimibe 10 MG Tablet PO (20:21)
[2022-04-06] MEDS: Doxazosin 4 MG Tablet 8 MG PO (20:21)
[2022-04-06] MEDS: Gabapentin 300 MG Capsule PO (20:49)
[2022-04-06] MEDS: Acetaminophen 500 MG Tablet 1000 MG PO (20:50)
[2022-04-06 21:35] LABS: Protein, Urine (Random) 48.1 mg/dL (<11.9); Protein:Creat Ratio 800 mg/g CRE (0-200)
--- NOTE | 2022-04-06 22:10 | CPS ---
Pt on home BiPAP unit with 4 lpm O2 bled inline.
[2022-04-07] VITALS (12 sets, daily range): BP systolic 123–168; BP diastolic 48–59; PULSE 54–72; RESP 16–20; TEMP 36.4–36.8; O2SAT 89–99
[2022-04-07 02:47] LABS: Bedside Glucose 163 mg/dL (74-106)
[2022-04-07 02:47] LABS: Bedside Glucose 200 mg/dL (74-106)
[2022-04-07] MEDS: hydrALAZINE 25 MG Tablet 75 MG PO ×3 (06:16→22:43)
[2022-04-07 06:25] LABS: Absolute Lymphocyte Count 1.19 X10^3/uL (0.83-4.51); Absolute Neutrophil Count 5.1 X10^3/uL (2.0-7.7); Basophil# 0.07 X10^3/uL; Basophil% 0.8 % (0-1); Eosinophil# 0.72 X10^3/uL; Eosinophils% 8.6 % (0-5); Hematocrit 23.3 % (40-54); Hemoglobin 7.5 g/dL (13.0-16.5); Lymphocyte # 1.19 X10^3/ul (0.83-4.51); Lymphocyte % 14.3 % (19-41); Mean Corp Hgb Conc 32.2 g/dL (32-36); Mean Corpuscular Hgb 28.7 pg (27.0-32.0); Mean Corpuscular Volume 89.3 fL (80-94); Mean Platelet Vol. 10.5 fl (6.2-12.0); Monocyte# 1.25 X10^3/uL; NRBC Flagged by Analyzer 0 % (0-5); Neutrophil # 5.07 X10^3/uL (2.7-7.7); Neutrophil % 60.9 % (47-70); Platelet Count 287 K/mm3 (150-450); RBC Distribution Width CV 14.2 % (11.6-14.6); RBC Distribution Width SD 46.3 fl (35.1-43.9); Red Blood Count 2.61 M/mm3 (4.6-6.2); White Blood Count 8.3 K/mm3 (4.4-11.0)
[2022-04-07 07:03] LABS: Anion Gap 6 (5-15); BUN 44 mg/dL (7-18); BUN/Creat Ratio 22.6 RATIO (10-20); Calcium,Total 8.6 mg/dL (8.5-10.1); Chloride 106 mmol/L (98-107); Creatinine, Serum 1.95 mg/dL (0.70-1.30); EST Glomerular Filtration Rate 35 mL/min (>60); Est Glom Filt Rate - Afr Amer 43 mL/min (>60); Estimated Creatinine Clearance 32.06 ml/min; Glucose 122 mg/dL (74-106); Potassium 3.6 mmol/L (3.5-5.1); Sodium Level 141 mmol/L (136-145)
[2022-04-07 07:10] LABS: Bedside Glucose 131 mg/dL (74-106)
--- NOTE | 2022-04-07 07:25 | PN.CARD_ITS ---
Subjective Subjective The patient was seen and evaluated. Appears to be breathing better. Objective Data Vital Signs: Vital Signs Temp Pulse Resp BP Pulse Ox O2 Del Method O2 Flow Rate 97.6 F L 62 16 130/58 H 95 Bi-pap 4 04/07/22 05:00 04/07/22 06:16 04/07/22 05:00 04/07/22 06:16 04/07/22 05:00 04/07/22 05:00 04/07/22 05:00 FiO2 4 04/06/22 22:10 Oxygen Flow Rate (L/min) 4 Oxygen Delivery Method Bi-pap Weight: 189 lb 6.033 oz Body Mass Index (BMI) 25.6 Intake & Output: Intake and Output for Last 24 Hours 04/05/22 04/06/22 04/07/22 23:59 23:59 23:59 Intake Total 240 / 240 Output Total 825 / 825 1300 / 1500 700 / 700 Balance -825 / -825 -1060 / -1260 -700 / -700 Lab / Micro Data Result Diagrams: 04/07/22 06:03 04/07/22 06:03 Labs: Laboratory Results - last 24 hr 04/06/22 12:36: POC Glucose 181 H 04/06/22 17:02: POC Glucose 200 H 04/06/22 20:48: U Random Total Protein 48.1 H, Urine Creatinine 60.10, Protein/Creatinin Ratio 800 H 04/06/22 23:42: POC Glucose 163 H 04/07/22 06:03: WBC 8.3, RBC 2.61 L, Hgb 7.5 L, Hct 23.3 L, MCV 89.3, MCH 28.7, MCHC 32.2, RDW Std Deviation 46.3 H, RDW Coeff of Cait 14.2, Plt Count 287, MPV 10.5, Immature Gran % (Auto) 0.400, Neut % (Auto) 60.9, Lymph % (Auto) 14.3 L, [place] % (Auto) 15.0 H, Eos % (Auto) 8.6 H, Baso % (Auto) 0.8, Absolute Neuts (auto) 5.1, Absolute Lymphs (auto) 1.19, Nucleated RBC % 0 04/07/22 06:03: Sodium 141, Potassium 3.6, Chloride 106, Carbon Dioxide 29.0, Anion Gap 6, BUN 44 H, Creatinine 1.95 H, Estim Creat Clear Calc 32.06, Est GFR (MDRD) Af Amer 43 L, Est GFR (MDRD) Non-Af 35 L, BUN/Creatinine Ratio 22.6 H, Glucose 122 H, Calcium 8.6 04/07/22 06:37: POC Glucose 131 H Cardiology Labs/Tests 04/07/22 06:03: WBC 8.3, RBC 2.61 L, Hgb 7.5 L, Hct 23.3 L, MCV 89.3, MCH 28.7, MCHC 32.2, Plt Count 287, MPV 10.5, Immature Gran % (Auto) 0.400, Neut % (Auto) 60.9, Lymph % (Auto) 14.3 L, [place] % (Auto) 15.0 H, Eos % (Auto) 8.6 H, Baso % (Auto) 0.8, Absolute Neuts (auto) 5.1, Nucleated RBC % 0 04/07/22 06:03: Sodium 141, Potassium 3.6, Chloride 106, Carbon Dioxide 29.0, Anion Gap 6, BUN 44 H, Creatinine 1.95 H, Est GFR (MDRD) Af Amer 43 L, Est GFR (MDRD) Non-Af 35 L, BUN/Creatinine Ratio 22.6 H, Glucose 122 H, Calcium 8.6 Rhythm: EKG: ECHO: Stress Test: Cardiac Cath: PCI: CT Surgery: Holter monitor: EPS: PPM: CXR: Chest CT Scan: Radiography Diagnostic Testing: Radiology Impression Chest X-Ray 04/06/22 15:10 IMPRESSION: Right-sided infiltrate increased and stable moderate left pleural effusion Electronically Signed: Phil Lema MD at 17:57 EST Reading Location ID and State: [address] [place] [id number] , Service support , Physical Exam Const alert, oriented x3 and no apparent distress General Appearance: cooperative HEENT hearing grossly normal bilaterally Head and Scalp: atraumatic Eyes EOMs intact bilaterally Neck General: normal visual inspection Chest inspection of chest normal and palpation of chest normal Resp normal respiratory effort Auscultation: diminished lung sounds Cardio regular rate, regular rhythm, S1 normal heart sound and S2 normal heart sound Jugular Venous Distention: JVD GI normal to inspection, nondistended, normoactive bowel sounds Extremity normal capillary refill General Extremity: edema Peripheral Pulses: Yes pulses 2+ throughout and femoral pulses present Skin no rashes or lesions noted Neuro oriented x3 and CN's II-XII intact bilaterally Psych Appearance: grossly normal and appropriate Assessment & Plan Assessment/Plan (1) Congestive heart failure: PLAN: He does have evidence of diastolic heart failure. His estimated ejection fraction is noted to be preserved with mitral calcification and moderate pulmonary hypertension. My suspicion is that his severe anemia is contributing to some of his symptomatology. We will continue with diuresis watching his renal function. (2) Pleural effusion on left: PLAN: He does have evidence of left pleural effusion. He should be considered for thoracentesis to help with symptomatic improvement in his breathing. (3) Hypertension: PLAN: Blood pressure is better controlled at this time. He has had a renal artery stent placed and the plan to be to continue his current medical therapy. I will recommend that we increase his amlodipine to 10 mg a day. (4) Coronary artery disease: PLAN: He does have minimal coronary artery disease. He has not had any documented stress test or cardiac catheterization which has demonstrated severe obstruction. Depending on the findings further recommendations will be made. * Will likely consider pharmacologic stress test prior to discharge Thank you for allowing me to participate in the care of your patient. Please don't hesitate to call if any issues arise.
--- NOTE | 2022-04-07 07:40 | PN.HOSP_ITS ---
Subjective Subjective Follow-up for multiple medical problems including heart failure, CKD, severe anemia and functional decline Objective Data Objective Data Vital Signs: Vital Signs Temp Pulse Resp BP Pulse Ox O2 Del Method O2 Flow Rate 97.6 F L 62 16 130/58 H 95 Bi-pap 4 04/07/22 05:00 04/07/22 06:16 04/07/22 05:00 04/07/22 06:16 04/07/22 05:00 04/07/22 05:00 04/07/22 05:00 FiO2 4 04/06/22 22:10 Oxygen Flow Rate (L/min) 4 Oxygen Delivery Method Bi-pap Weight: 189 lb 6.033 oz Body Mass Index (BMI) 25.6 Intake & Output: Intake and Output for Last 24 Hours 04/05/22 04/06/22 04/07/22 23:59 23:59 23:59 Intake Total 240 / 240 Output Total 825 / 825 1300 / 1500 700 / 700 Balance -825 / -825 -1060 / -1260 -700 / -700 Lab / Micro Data Result Diagrams: 04/07/22 06:03 04/07/22 06:03 Labs: Laboratory Results - last 24 hr 04/06/22 12:36: POC Glucose 181 H 04/06/22 17:02: POC Glucose 200 H 04/06/22 20:48: U Random Total Protein 48.1 H, Urine Creatinine 60.10, Protein/Creatinin Ratio 800 H 04/06/22 23:42: POC Glucose 163 H 04/07/22 06:03: WBC 8.3, RBC 2.61 L, Hgb 7.5 L, Hct 23.3 L, MCV 89.3, MCH 28.7, MCHC 32.2, RDW Std Deviation 46.3 H, RDW Coeff of Cait 14.2, Plt Count 287, MPV 10.5, Immature Gran % (Auto) 0.400, Neut % (Auto) 60.9, Lymph % (Auto) 14.3 L, [place] % (Auto) 15.0 H, Eos % (Auto) 8.6 H, Baso % (Auto) 0.8, Absolute Neuts (auto) 5.1, Absolute Lymphs (auto) 1.19, Nucleated RBC % 0 04/07/22 06:03: Sodium 141, Potassium 3.6, Chloride 106, Carbon Dioxide 29.0, Anion Gap 6, BUN 44 H, Creatinine 1.95 H, Estim Creat Clear Calc 32.06, Est GFR (MDRD) Af Amer 43 L, Est GFR (MDRD) Non-Af 35 L, BUN/Creatinine Ratio 22.6 H, Glucose 122 H, Calcium 8.6 04/07/22 06:37: POC Glucose 131 H Radiography Diagnostic Testing: Radiology Impression Chest X-Ray 04/06/22 15:10 IMPRESSION: Right-sided infiltrate increased and stable moderate left pleural effusion Electronically Signed: Phil Lema MD at 17:57 EST , Physical Exam Narrative Seen and examined. Physical exam General: Alert, Oriented x3, Cooperative HEENT: Atraumatic, PERRLA, EOMI, Normocephalic Oral: Oral mucosa moist. No Gingival or Mucosal Lesions/ Ulcerations Neck: Supple, No JVD, Negative Carotid Bruits Lungs: Air entry diminished more in the left lung base, left pleural effusion. Mild expiratory rhonchi. Cardiovascular: Sinus rhythm normal S1, Normal S2, systolic murmur over LLSB and cardiac apex Abdomen: Bowel Sounds Present, Soft, Non Tender, Non-Distended : No renal angle tenderness. No suprapubic tenderness. Extremities: Bilateral pedal pitting edema, 2+. Capillary Refill Less than 3 Seconds Skin: No rashes, No breakdown Musculoskeletal: No Tenderness to Palpation of Joints or Extremities, ROM in tact. Neurological: Cranial nerves II-XII grossly intact, DTR 2+/4 and Symmetrical, Neuro grossly intact Psych/Mental Status: Normal Affect, Appropriate. Assessment & Plan Assessment/Plan (1) Congestive heart failure: (2) Pleural effusion on left: PLAN: Plan This is 81-year-old gentleman who was admitted for shortness of breath for 2 weeks with no orthopnea or PND. No chest pain palpitation fever or chills. #Acute exacerbation of heart failure * Admitted to PCU 04/06: Repeat left decubitus chest x-ray ordered to look for drainable left pleural effusion.On Lasix 40 mg IV twice daily. Heart failure core measures including intake and output, fluid restriction less than 1500 mL, daily weight monitoring, kidney and electrolytes monitoring. The echo is ordered. EKG did not show acute change. Patient did not have chest pain or pressure therefore unlikely ACS. 04/07: Left decubitus chest x-ray reviewed. It is layered and looks moderate effusion therefore ultrasound-guided thoracocentesis ordered along with the analytical lab, cultures and cytology tests. Hold Plavix, Lovenox. Discussed with the nursing staff. 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 His blood pressure was 159/64 and heart rate 66 in ED. In the morning blood pressure normal. At one time in the past patient was on clonidine but probably high dose was given by mistake at home therefore patient was admitted with bradycardia, heart rate 30s. Kidney Doppler in 2021 shows stenosis of right- sided s/p renal angioplasty in July 2021. Follow-up renal Doppler did not show any stenosis. No suspicion for Conn syndrome as potassium is normal tonight. When creatinine stabilizes we will consider HCTZ or increasing the dose of losartan 04/07: Blood pressure is better controlled 135/53. Heart rate 72/min. #Normocytic normochromic anemia most likely due to CKD: Hb is 8.6. 04/06: Hemoglobin dropped to 7.7. Platelet count normal 275,000. 04/07: Hemoglobin further dropped to 7.5. MCV and RDW normal. Patient does not have obvious GI bleed but stool for occult blood and comprehensive anemia work- up ordered. #CKD 3a: Cr is 1.76. This is around his baseline. eGFR is 40. On baseline, albumin creatinine ratio less than 30 mg/g. 04/06: Creatinine went up to 1.84, BUN 38. Park Naturalist consulted for CKD and hypertension diuretic management. Urine ordered for protein creatinine ratio. 04/07: Creatinine increased to 1.95. Lasix decreased to 40 mg IV daily and hold the morning dose for proposed thoracocentesis. As per nursing staff patient has to be 5 days of Plavix before thoracocentesis. #Type 2 diabetes mellitus: on lantus 14 units daily. ISS. Accuchecks ACHS. #Depression: on sertraline. DVT prophylaxis: lovenox Code status: full code Total time of the visit including total time spent in counseling or coordination of care, (more than 50% of the total time, spent in obtaining medical information from nurses and other ancillary care providers,explaining to the pa tient about labs, imaging, diagnosis and management of active complex medical conditions), discussion on different diagnosis to the daughter including CKD, hypertension and heart failure, discussion with the compliance quality performance analyst and garden labourer, review of labs and imaging is 50 minutes. Laboratory Results 04/06/22 12:36: POC Glucose 181 H 04/06/22 17:02: POC Glucose 200 H 04/06/22 20:48: U Random Total Protein 48.1 H, Urine Creatinine 60.10, Protein/Creatinin Ratio 800 H 04/06/22 23:42: POC Glucose 163 H 04/07/22 06:03: WBC 8.3, RBC 2.61 L, Hgb 7.5 L, Hct 23.3 L, MCV 89.3, MCH 28.7, MCHC 32.2, RDW Std Deviation 46.3 H, RDW Coeff of Cait 14.2, Plt Count 287, MPV 10.5, Immature Gran % (Auto) 0.400, Neut % (Auto) 60.9, Lymph % (Auto) 14.3 L, [place] % (Auto) 15.0 H, Eos % (Auto) 8.6 H, Baso % (Auto) 0.8, Absolute Neuts (auto) 5.1, Absolute Lymphs (auto) 1.19, Nucleated RBC % 0 04/07/22 06:03: Sodium 141, Potassium 3.6, Chloride 106, Carbon Dioxide 29.0, Anion Gap 6, BUN 44 H, Creatinine 1.95 H, Estim Creat Clear Calc 32.06, Est GFR (MDRD) Af Amer 43 L, Est GFR (MDRD) Non-Af 35 L, BUN/Creatinine Ratio 22.6 H, Glucose 122 H, Calcium 8.6 04/07/22 06:37: POC Glucose 131 H Charges/Coding Visit Charges Inpatient E&M: 12100 Subs Hosp L2
[2022-04-07 08:41] LABS: Platelet Count 286 K/mm3 (150-450); RET-HE 25.3 pg (30-35)
[2022-04-07 09:09] LABS: ALB/GLOB Ratio 0.7 RATIO (0.9-2.4); Ferritin 166 ng/mL (26-388); Globulin 3.7 g/dL (2.2-4.2); Iron 14 ug/dL (65-175); Iron Binding Capacity,Total 208 ug/dL (250-450); LDH 127 U/L (87-241); PERCENT IRON SATURATION 6.7 % (15.0-55.0); Protein, Total 6.4 g/dL (6.4-8.2)
[2022-04-07] MEDS: Carvedilol 25 MG Tablet PO ×2 (09:11→22:43)
[2022-04-07] MEDS: Multivitamins,Ther W-Minerals Tablet 1 TABLET PO (09:11)
[2022-04-07] MEDS: amLODIPine 5 MG Tablet PO (09:12)
[2022-04-07] MEDS: Losartan Potassium 25 MG Tablet PO (09:12)
[2022-04-07] MEDS: Gabapentin 100 MG Capsule PO ×2 (09:16→16:20)
[2022-04-07 10:57] LABS: Vitamin B12 1661 pg/mL (211-911)
--- NOTE | 2022-04-07 11:37 | PN.RENAL_ITS ---
Subjective Subjective No new events. Objective Data Objective Data Vital Signs: Vital Signs Temp Pulse Resp BP Pulse Ox O2 Del Method O2 Flow Rate 98.2 F 72 18 135/53 H 94 Nasal Cannula 4 04/07/22 09:09 04/07/22 09:09 04/07/22 09:09 04/07/22 09:09 04/07/22 09:09 04/07/22 09:22 04/07/22 09:22 FiO2 4 04/06/22 22:10 Oxygen Flow Rate (L/min) 4 Oxygen Delivery Method Nasal Cannula Weight: 85.9 kg Body Mass Index (BMI) 25.6 Intake & Output: Intake and Output for Last 24 Hours 04/05/22 04/06/22 04/07/22 23:59 23:59 23:59 Intake Total 240 / 240 Output Total 825 / 825 1300 / 1500 700 / 700 Balance -825 / -825 -1060 / -1260 -700 / -700 Lab / Micro Data Result Diagrams: 04/07/22 06:03 04/07/22 06:03 Labs: Laboratory Results - last 24 hr 04/06/22 12:36: POC Glucose 181 H 04/06/22 17:02: POC Glucose 200 H 04/06/22 20:48: U Random Total Protein 48.1 H, Urine Creatinine 60.10, Protein/Creatinin Ratio 800 H 04/06/22 23:42: POC Glucose 163 H 04/07/22 06:03: WBC 8.3, RBC 2.61 L, Hgb 7.5 L, Hct 23.3 L, MCV 89.3, MCH 28.7, MCHC 32.2, RDW Std Deviation 46.3 H, RDW Coeff of Cait 14.2, Plt Count 287, MPV 10.5, Immature Gran % (Auto) 0.400, Neut % (Auto) 60.9, Lymph % (Auto) 14.3 L, [place] % (Auto) 15.0 H, Eos % (Auto) 8.6 H, Baso % (Auto) 0.8, Absolute Neuts (auto) 5.1, Absolute Lymphs (auto) 1.19, Nucleated RBC % 0 04/07/22 06:03: Sodium 141, Potassium 3.6, Chloride 106, Carbon Dioxide 29.0, Anion Gap 6, BUN 44 H, Creatinine 1.95 H, Estim Creat Clear Calc 32.06, Est GFR (MDRD) Af Amer 43 L, Est GFR (MDRD) Non-Af 35 L, BUN/Creatinine Ratio 22.6 H, Glucose 122 H, Calcium 8.6 04/07/22 06:37: POC Glucose 131 H 04/07/22 08:28: Vitamin B12 1661 H 04/07/22 08:28: Iron 14 L, TIBC 208 L, Iron Saturation 6.7 L, Ferritin 166, Lactate Dehydrogenase 127, Total Protein 6.4, Globulin 3.7, Albumin/Globulin Ratio 0.7 L 04/07/22 08:28: Retic Count 1.40, Immature Retic Fraction 19.20 H, Retic Hgb Equivalent 25.3 L Radiography Diagnostic Testing: Radiology Impression Chest X-Ray 04/06/22 15:10 IMPRESSION: Right-sided infiltrate increased and stable moderate left pleural effusion Electronically Signed: Phil Lema MD at 17:57 EST Reading Location ID and State: [address] [place] [address] , Service support , Physical Exam Narrative Alert awake oriented x 3 no obvious distress no pallor no icterus no JVD s1s2 no murmurs lungs clear abdomen soft no organomegaly no edema no cyanosis Assessment & Plan Assessment/Plan (1) Chronic kidney disease (CKD) stage G3a/A1, moderately decreased glomerular filtration rate (GFR) between 45-59 mL/min/1.73 square meter and albuminuria creatinine ratio less than 30 mg/g: PLAN: His creatinine in 2020 was normal/close to normal at 1.0-1.1. Over the last 1 year due to other changes, creatinine values have fluctuated significant ly. Baseline creatinine seems to be between 1.3-1.5. Creatinine now is slightly higher, presumably due to diuresis. Urine analysis shows some proteinuria, urine PCR 0.8 not impressive for nephrotic syndrome renal ultrasound without any hydronephrosis. Nearly symmetrical kidneys. Most likely creatinine changes are related to other ongoing events. (2) Hypertension: PLAN: Has been dealing with hypertension for last 1 year. Reviewed records. Renal Doppler from beginning of 2021 showed stenosis on the right side, s/p renal angioplasty on the right side in July 2021. Follow-up renal Doppler did not show any stenosis. I do not have suspicion for Conn syndrome since his potassium is normal to high. It seems he was on Diovan, hydrochlorothiazide, Aldactone at some point in the past and was taken off due to creatinine changes. Currently he is on losartan 25 mg once a day, amlodipine 5 mg once a day, Coreg 25 mg twice a day, hydralazine 3 times a day,alpha blockers. He was prescribed Clonidine, developed bradycardia. There was a question if a higher than recommended dose was given. Heart rate is around 65. ;asix cut down to once a day for now Scheduled for thoracocentesis Continue same medications Blood pressure is acceptable today
[2022-04-07] MEDS: Insulin Lispro 100 UNIT/ML INSULN.PEN SC ×2 (11:57→22:43)
[2022-04-07] MEDS: Insulin Glargine-YFGN 100 UNIT/ML Pen 18 UNIT SC (11:59)
[2022-04-07] MEDS: Ferrous Sulfate 325 MG Tablet PO (12:00)
[2022-04-07 12:30] LABS: Bedside Glucose 262 mg/dL (74-106)
[2022-04-07] MEDS: Furosemide 40 MG/4 ML Vial IV (16:18)
[2022-04-07 16:46] LABS: Bedside Glucose 127 mg/dL (74-106)
[2022-04-07] MEDS: Enoxaparin 30 MG/0.3 ML Syringe SC (17:14)
[2022-04-07] MEDS: Pramipexole Di-HCl 0.125 MG Tablet PO (22:42)
[2022-04-07] MEDS: Sertraline 50 MG Tablet PO (22:42)
[2022-04-07] MEDS: Doxazosin 4 MG Tablet 8 MG PO (22:42)
[2022-04-07] MEDS: Ezetimibe 10 MG Tablet PO (22:42)
[2022-04-07] MEDS: Latanoprost 0.005% 1 Bottle 1 DRP EACH EYE (22:42)
[2022-04-07] MEDS: Gabapentin 300 MG Capsule PO (22:53)
[2022-04-07 23:21] LABS: Bedside Glucose 160 mg/dL (74-106)
[2022-04-08] VITALS (10 sets, daily range): BP systolic 112–148; BP diastolic 53–89; PULSE 51–63; RESP 12–20; TEMP 36.4–36.9; O2SAT 93–100
[2022-04-08 04:47] LABS: Absolute Lymphocyte Count 0.83 X10^3/uL (0.83-4.51); Basophil# 0.07 X10^3/uL; Basophil% 0.7 % (0-1); Eosinophil# 0.49 X10^3/uL; Eosinophils% 5.1 % (0-5); Hematocrit 25.1 % (40-54); Lymphocyte # 0.83 X10^3/ul (0.83-4.51); Lymphocyte % 8.7 % (19-41); Mean Corp Hgb Conc 31.9 g/dL (32-36); Mean Corpuscular Hgb 28.7 pg (27.0-32.0); Mean Platelet Vol. 10.4 fl (6.2-12.0); Monocyte# 1.18 X10^3/uL; Monocyte% 12.3 % (0-10); NRBC Flagged by Analyzer 0 % (0-5); Neutrophil # 6.98 X10^3/uL (2.7-7.7); Neutrophil % 72.9 % (47-70); Platelet Count 322 K/mm3 (150-450); RBC Distribution Width CV 14.3 % (11.6-14.6); RBC Distribution Width SD 47.4 fl (35.1-43.9); Red Blood Count 2.79 M/mm3 (4.6-6.2); White Blood Count 9.6 K/mm3 (4.4-11.0)
[2022-04-08 05:25] LABS: Anion Gap 8 (5-15); BUN 48 mg/dL (7-18); BUN/Creat Ratio 24.9 RATIO (10-20); Calcium,Total 8.5 mg/dL (8.5-10.1); Chloride 103 mmol/L (98-107); Creatinine, Serum 1.93 mg/dL (0.70-1.30); EST Glomerular Filtration Rate 36 mL/min (>60); Est Glom Filt Rate - Afr Amer 43 mL/min (>60); Estimated Creatinine Clearance 32.39 ml/min; Glucose 138 mg/dL (74-106); Potassium 3.6 mmol/L (3.5-5.1); Sodium Level 140 mmol/L (136-145)
[2022-04-08] MEDS: hydrALAZINE 25 MG Tablet 75 MG PO ×3 (06:19→21:54)
[2022-04-08 06:51] LABS: Bedside Glucose 141 mg/dL (74-106)
--- NOTE | 2022-04-08 08:08 | PN.HOSP_ITS ---
Subjective Subjective Follow-up for heart failure, CKD, left pleural effusion. Patient is taking Plavix after renal stent put less than a year ago. Bleeding October/November. Objective Data Objective Data Vital Signs: Vital Signs Temp Pulse Resp BP Pulse Ox O2 Del Method O2 Flow Rate 98.5 F 60 18 135/53 H 98 High Flow 6 04/08/22 06:15 04/08/22 06:19 04/08/22 06:15 04/08/22 06:19 04/08/22 06:15 04/08/22 06:15 04/08/22 06:15 FiO2 4 04/06/22 22:10 Oxygen Flow Rate (L/min) 6 Oxygen Delivery Method High Flow Weight: 189 lb 6.033 oz Body Mass Index (BMI) 25.6 Intake & Output: Intake and Output for Last 24 Hours 04/06/22 04/07/22 04/08/22 23:59 23:59 23:59 Intake Total 240 / 240 600 / 700 100 / 100 Output Total 1300 / 1500 2410 / 2870 860 / 860 Balance -1060 / -1260 -1810 / -2170 -760 / -760 Lab / Micro Data Result Diagrams: 04/08/22 04:24 04/08/22 04:24 Labs: Laboratory Results - last 24 hr 04/07/22 08:28: Vitamin B12 1661 H 04/07/22 08:28: Iron 14 L, TIBC 208 L, Iron Saturation 6.7 L, Ferritin 166, Lactate Dehydrogenase 127, Total Protein 6.4, Globulin 3.7, Albumin/Globulin Ratio 0.7 L 04/07/22 08:28: Retic Count 1.40, Immature Retic Fraction 19.20 H, Retic Hgb Equivalent 25.3 L 04/07/22 11:53: POC Glucose 262 H 04/07/22 16:13: POC Glucose 127 H 04/07/22 22:30: POC Glucose 160 H 04/08/22 04:24: WBC 9.6, RBC 2.79 L, Hgb 8.0 L, Hct 25.1 L, MCV 90.0, MCH 28.7, MCHC 31.9 L, RDW Std Deviation 47.4 H, RDW Coeff of Cait 14.3, Plt Count 322, MPV 10.4, Immature Gran % (Auto) 0.300, Neut % (Auto) 72.9 H, Lymph % (Auto) 8.7 L, [place] % (Auto) 12.3 H, Eos % (Auto) 5.1 H, Baso % (Auto) 0.7, Absolute Neuts (auto) 7.0, Absolute Lymphs (auto) 0.83, Nucleated RBC % 0 04/08/22 04:24: Sodium 140, Potassium 3.6, Chloride 103, Carbon Dioxide 29.0, Anion Gap 8, BUN 48 H, Creatinine 1.93 H, Estim Creat Clear Calc 32.39, Est GFR (MDRD) Af Amer 43 L, Est GFR (MDRD) Non-Af 36 L, BUN/Creatinine Ratio 24.9 H, Glucose 138 H, Calcium 8.5 04/08/22 06:19: POC Glucose 141 H Physical Exam Narrative Seen and examined. Physical exam General: Alert, Oriented x3, Cooperative HEENT: Atraumatic, PERRLA, EOMI, Normocephalic Oral: Oral mucosa moist. No Gingival or Mucosal Lesions/ Ulcerations Neck: Supple, No JVD, Negative Carotid Bruits Lungs: Air entry diminished more in the left lung base, left pleural effusion. Mild expiratory rhonchi. Cardiovascular: Sinus rhythm normal S1, Normal S2, systolic murmur over LLSB and cardiac apex Abdomen: Bowel Sounds Present, Soft, Non Tender, Non-Distended : No renal angle tenderness. No suprapubic tenderness. Extremities: Bilateral pedal pitting edema, 2+. Capillary Refill Less than 3 Seconds Skin: No rashes, No breakdown Musculoskeletal: No Tenderness to Palpation of Joints or Extremities, ROM intact. Neurological: Cranial nerves II-XII grossly intact, DTR 2+/4 and Symmetrical, Neuro grossly intact Psych/Mental Status: Normal Affect, Appropriate. Assessment & Plan Assessment/Plan (1) Congestive heart failure: (2) Pleural effusion on left: PLAN: Plan This is 81-year-old gentleman who was admitted for shortness of breath for 2 weeks with no orthopnea or PND. No chest pain palpitation fever or chills. #Acute exacerbation of heart failure * Admitted to PCU 04/06: Repeat left decubitus chest x-ray ordered to look for drainable left pleural effusion.On Lasix 40 mg IV twice daily. Heart failure core measures including intake and output, fluid restriction less than 1500 mL, daily weight monitoring, kidney and electrolytes monitoring. The echo is ordered. EKG did not show acute change. Patient did not have chest pain or pressure therefore unlikely ACS. 04/07: Left decubitus chest x-ray reviewed. It is layered and looks moderate effusion therefore ultrasound-guided thoracocentesis ordered along with the analytical lab, cultures and cytology tests. Hold Plavix, Lovenox. Discussed with the nursing staff. 04/08: Lovenox resumed yesterday. Continue holding Plavix. Voice message left for Dr. 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 His blood pressure was 159/64 and heart rate 66 in ED. In the morning blood pressu re normal. At one time in the past patient was on clonidine but probably high dose was given by mistake at home therefore patient was admitted with bradycardia, heart rate 30s. Kidney Doppler in 2021 shows stenosis of right- sided s/p renal angioplasty in July 2021. Follow-up renal Doppler did not show any stenosis. No suspicion for Conn syndrome as potassium is normal tonight. When creatinine stabilizes we will consider HCTZ or increasing the dose of losartan 04/07: Blood pressure is better controlled 135/53. Heart rate 72/min. #Normocytic normochromic anemia most likely due to CKD: Hb is 8.6. 04/06: Hemoglobin dropped to 7.7. Platelet count normal 275,000. 04/07: Hemoglobin further dropped to 7.5. MCV and RDW normal. Patient does not have obvious GI bleed but stool for occult blood and comprehensive anemia work- up ordered. 04/08: Anemia work-up shows anemia of chronic kidney disease with low iron TIBC. Ferritin 166 iron saturation 6.7%. 1 dose IV iron ordered. #CKD 3a: Cr is 1.76. This is around his baseline. eGFR is 40. On baseline, albumin creatinine ratio less than 30 mg/g. 04/06: Creatinine went up to 1.84, BUN 38. Diesel Automotive Technician consulted for CKD and hypertension diuretic management. Urine ordered for protein creatinine ratio. 04/07: Creatinine increased to 1.95. Lasix decreased to 40 mg IV daily and hold the morning dose for proposed thoracocentesis. As per nursing staff patient has to be 5 days of Plavix before thoracocentesis. 04/08: Creatinine is 1.93 similar to yesterday. Continue Lasix. Electrolytes are in normal range. Bicarb gradually increasing 29. #Type 2 diabetes mellitus: on lantus 14 units daily. ISS. Accuchecks ACHS. #Depression: on sertraline. DVT prophylaxis: lovenox Code status: full code Total time of the visit including total time spent in counseling or coordination of care, (more than 50% of the total time, spent in obtaining medical information from nurses and other ancillary care providers,explaining to the patient about labs, imaging, diagnosis and management of active complex medical conditions), discussion on different diagnosis to the daughter including CKD, hypertension and heart failure, discussion with the special day class teacher and resource paraprofessional, IR. review of labs and imaging is 50 minutes. Laboratory Results 04/06/22 12:36: POC Glucose 181 H 04/06/22 17:02: POC Glucose 200 H 04/06/22 20:48: U Random Total Protein 48.1 H, Urine Creatinine 60.10, Protein/Creatinin Ratio 800 H 04/06/22 23:42: POC Glucose 163 H 04/07/22 06:03: WBC 8.3, RBC 2.61 L, Hgb 7.5 L, Hct 23.3 L, MCV 89.3, MCH 28.7, MCHC 32.2, RDW Std Deviation 46.3 H, RDW Coeff of Cait 14.2, Plt Count 287, MPV 10.5, Immature Gran % (Auto) 0.400, Neut % (Auto) 60.9, Lymph % (Auto) 14.3 L, [place] % (Auto) 15.0 H, Eos % (Auto) 8.6 H, Baso % (Auto) 0.8, Absolute Neuts (auto) 5.1, Absolute Lymphs (auto) 1.19, Nucleated RBC % 0 04/07/22 06:03: Sodium 141, Potassium 3.6, Chloride 106, Carbon Dioxide 29.0, Anion Gap 6, BUN 44 H, Creatinine 1.95 H, Estim Creat Clear Calc 32.06, Est GFR (MDRD) Af Amer 43 L, Est GFR (MDRD) Non-Af 35 L, BUN/Creatinine Ratio 22.6 H, Glucose 122 H, Calcium 8.6 04/07/22 06:37: POC Glucose 131 H Charges/Coding Visit Charges Inpatient E&M: 32454 Subs Hosp L3
[2022-04-08] MEDS: Gabapentin 100 MG Capsule PO ×2 (08:37→17:50)
[2022-04-08] MEDS: Multivitamins,Ther W-Minerals Tablet 1 TABLET PO (08:37)
[2022-04-08] MEDS: Losartan Potassium 25 MG Tablet PO (08:37)
[2022-04-08] MEDS: 0.9% Saline Lock 10 ML Syringe IV ×2 (08:38→21:53)
[2022-04-08] MEDS: Enoxaparin 30 MG/0.3 ML Syringe SC (08:38)
[2022-04-08] MEDS: amLODIPine 5 MG Tablet PO (08:38)
[2022-04-08] MEDS: Furosemide 40 MG/4 ML Vial IV (08:38)
[2022-04-08] MEDS: Carvedilol 25 MG Tablet PO ×2 (08:38→21:56)
[2022-04-08] MEDS: Insulin Lispro 100 UNIT/ML INSULN.PEN SC ×2 (12:06→21:56)
[2022-04-08] MEDS: Insulin Glargine-YFGN 100 UNIT/ML Pen 18 UNIT SC (12:07)
[2022-04-08 12:20] LABS: Bedside Glucose 279 mg/dL (74-106)
--- NOTE | 2022-04-08 14:11 | PN.RENAL_ITS ---
Subjective Subjective No new complaints Objective Data Objective Data Vital Signs: Vital Signs Temp Pulse Resp BP Pulse Ox O2 Del Method O2 Flow Rate 98.5 F 51 L 18 135/53 H 97 High Flow 6 04/08/22 06:15 04/08/22 14:05 04/08/22 06:15 04/08/22 06:19 04/08/22 09:26 04/08/22 09:35 04/08/22 09:35 FiO2 4 04/06/22 22:10 Oxygen Flow Rate (L/min) 6 Oxygen Delivery Method High Flow Weight: 85.9 kg Body Mass Index (BMI) 25.6 Intake & Output: Intake and Output for Last 24 Hours 04/06/22 04/07/22 04/08/22 23:59 23:59 23:59 Intake Total 240 / 240 600 / 700 370 / 370 Output Total 1300 / 1500 2410 / 2870 860 / 860 Balance -1060 / -1260 -1810 / -2170 -490 / -490 Lab / Micro Data Result Diagrams: 04/08/22 04:24 04/08/22 04:24 Labs: Laboratory Results - last 24 hr 04/07/22 16:13: POC Glucose 127 H 04/07/22 22:30: POC Glucose 160 H 04/08/22 04:24: WBC 9.6, RBC 2.79 L, Hgb 8.0 L, Hct 25.1 L, MCV 90.0, MCH 28.7, MCHC 31.9 L, RDW Std Deviation 47.4 H, RDW Coeff of Cait 14.3, Plt Count 322, MPV 10.4, Immature Gran % (Auto) 0.300, Neut % (Auto) 72.9 H, Lymph % (Auto) 8.7 L, [place] % (Auto) 12.3 H, Eos % (Auto) 5.1 H, Baso % (Auto) 0.7, Absolute Neuts (auto) 7.0, Absolute Lymphs (auto) 0.83, Nucleated RBC % 0 04/08/22 04:24: Sodium 140, Potassium 3.6, Chloride 103, Carbon Dioxide 29.0, Anion Gap 8, BUN 48 H, Creatinine 1.93 H, Estim Creat Clear Calc 32.39, Est GFR (MDRD) Af Amer 43 L, Est GFR (MDRD) Non-Af 36 L, BUN/Creatinine Ratio 24.9 H, Glucose 138 H, Calcium 8.5 04/08/22 06:19: POC Glucose 141 H 04/08/22 12:02: POC Glucose 279 H Physical Exam Narrative Alert awake oriented x 3 no obvious distress no pallor no icterus no JVD s1s2 no murmurs lungs clear abdomen soft no organomegaly no edema no cyanosis Assessment & Plan Assessment/Plan (1) Chronic kidney disease (CKD) stage G3a/A1, moderately decreased glomerular filtration rate (GFR) between 45-59 mL/min/1.73 square meter and albuminuria creatinine ratio less than 30 mg/g: PLAN: His creatinine in 2020 was normal/close to normal at 1.0-1.1. Over the last 1 year due to other changes, creatinine values have fluctuated significantly. Baseline creatinine seems to be between 1.3-1.5. Creatinine now is slightly higher, presumably due to diuresis. Urine analysis shows some proteinuria, urine PCR 0.8 not impressive for nephrotic syndrome renal ultrasound without any hydronephrosis. Nearly symmetrical kidneys. Most likely creatinine changes are related to other ongoing events. (2) Hypertension: PLAN: Has been dealing with hypertension for last 1 year. Reviewed records. Renal Doppler from beginning of 2021 showed stenosis on the right side, s/p renal angioplasty on the right side in July 2021. Follow-up renal Doppler did not show any stenosis. I do not have suspicion for Conn syndrome since his potassium is normal to high. It seems he was on Diovan, hydrochlorothiazide, Aldactone at some point in the past and was taken off due to creatinine changes. Currently he is on losartan 25 mg once a day, amlodipine 5 mg once a day, Coreg 25 mg twice a day, hydralazine 3 times a day,alpha blockers. He was prescribed Clonidine, developed bradycardia. There was a question if a higher than recommended dose was given. Heart rate is around 65. ;asix cut down to once a day for now Scheduled for thoracocentesis tomorrow Continue same medications Blood pressure is acceptable today Discussed with hospitalist
[2022-04-08 17:06] LABS: Bedside Glucose 149 mg/dL (74-106)
[2022-04-08 19:10] LABS: Haptoglobin 374 mg/dL (38-329)
[2022-04-08] MEDS: Gabapentin 300 MG Capsule PO (21:54)
[2022-04-08] MEDS: Latanoprost 0.005% 1 Bottle 1 DRP EACH EYE (21:56)
[2022-04-08] MEDS: Pramipexole Di-HCl 0.125 MG Tablet PO (21:56)
[2022-04-08] MEDS: Ezetimibe 10 MG Tablet PO (21:56)
[2022-04-08] MEDS: Sertraline 50 MG Tablet PO (21:56)
[2022-04-08] MEDS: Doxazosin 4 MG Tablet 8 MG PO (21:56)
[2022-04-08 22:55] LABS: Bedside Glucose 175 mg/dL (74-106)
[2022-04-09] VITALS (10 sets, daily range): BP systolic 121–148; BP diastolic 48–62; PULSE 56–65; RESP 16–18; TEMP 36.4–37.2; O2SAT 92–97
[2022-04-09 06:11] LABS: Absolute Lymphocyte Count 1.15 X10^3/uL (0.83-4.51); Absolute Neutrophil Count 5.5 X10^3/uL (2.0-7.7); Basophil# 0.06 X10^3/uL; Basophil% 0.7 % (0-1); Eosinophil# 0.65 X10^3/uL; Eosinophils% 7.5 % (0-5); Hematocrit 23.2 % (40-54); Hemoglobin 7.4 g/dL (13.0-16.5); Lymphocyte # 1.15 X10^3/ul (0.83-4.51); Lymphocyte % 13.3 % (19-41); Mean Corp Hgb Conc 31.9 g/dL (32-36); Mean Corpuscular Hgb 28.6 pg (27.0-32.0); Mean Corpuscular Volume 89.6 fL (80-94); Mean Platelet Vol. 10.6 fl (6.2-12.0); Monocyte# 1.25 X10^3/uL; Monocyte% 14.5 % (0-10); NRBC Flagged by Analyzer 0 % (0-5); Neutrophil % 63.8 % (47-70); Platelet Count 314 K/mm3 (150-450); RBC Distribution Width CV 14.4 % (11.6-14.6); Red Blood Count 2.59 M/mm3 (4.6-6.2); White Blood Count 8.6 K/mm3 (4.4-11.0)
[2022-04-09 06:19] LABS: International Normalized Ratio 1.2
[2022-04-09 06:20] LABS: Partial Thromboplast Time 38.8 Seconds (24.1-36.2)
[2022-04-09] MEDS: hydrALAZINE 25 MG Tablet 75 MG PO ×3 (06:23→22:00)
[2022-04-09 06:37] LABS: ALB/GLOB Ratio 0.6 RATIO (0.9-2.4); Anion Gap 9 (5-15); BUN 52 mg/dL (7-18); BUN/Creat Ratio 24.9 RATIO (10-20); Calcium,Total 8.6 mg/dL (8.5-10.1); Chloride 103 mmol/L (98-107); Creatinine, Serum 2.09 mg/dL (0.70-1.30); EST Glomerular Filtration Rate 32 mL/min (>60); Est Glom Filt Rate - Afr Amer 39 mL/min (>60); Estimated Creatinine Clearance 29.91 ml/min; Globulin 3.9 g/dL (2.2-4.2); Glucose 120 mg/dL (74-106); LDH 97 U/L (87-241); Potassium 3.4 mmol/L (3.5-5.1); Protein, Total 6.3 g/dL (6.4-8.2); Sodium Level 141 mmol/L (136-145)
[2022-04-09 06:55] LABS: Bedside Glucose 127 mg/dL (74-106)
--- NOTE | 2022-04-09 08:00 | PCM.PN.HOSP ---
Objective Data Objective Data Vital Signs: Vital Signs Temp Pulse Resp BP Pulse Ox O2 Del Method O2 Flow Rate 99.0 F 65 16 143/60 H 92 Bi-pap 3 04/09/22 04:21 04/09/22 06:23 04/09/22 04:21 04/09/22 06:23 04/09/22 04:21 04/09/22 04:22 04/08/22 21:54 FiO2 4 04/06/22 22:10 Oxygen Flow Rate (L/min) 3 Oxygen Delivery Method Bi-pap Weight: 189 lb 6.033 oz Body Mass Index (BMI) 25.6 Intake & Output: Intake and Output for Last 24 Hours 04/07/22 04/08/22 04/09/22 23:59 23:59 23:59 Intake Total 600 / 700 370 / 570 200 / 200 Output Total 2410 / 2870 860 / 860 200 / 200 Balance -1810 / -2170 -490 / -290 0 / 0 Lab / Micro Data Result Diagrams: 04/09/22 05:22 04/09/22 05:22 Labs: Laboratory Results - last 24 hr 04/07/22 08:28: Haptoglobin 374 H 04/08/22 12:02: POC Glucose 279 H 04/08/22 16:45: POC Glucose 149 H 04/08/22 21:51: POC Glucose 175 H 04/09/22 05:22: WBC 8.6, RBC 2.59 L, Hgb 7.4 L, Hct 23.2 L, MCV 89.6, MCH 28.6, MCHC 31.9 L, RDW Std Deviation 47.0 H, RDW Coeff of Cait 14.4, Plt Count 314, MPV 10.6, Immature Gran % (Auto) 0.200, Neut % (Auto) 63.8, Lymph % (Auto) 13.3 L, [place] % (Auto) 14.5 H, Eos % (Auto) 7.5 H, Baso % (Auto) 0.7, Absolute Neuts (auto) 5.5, Absolute Lymphs (auto) 1.15, Nucleated RBC % 0 04/09/22 05:22: Sodium 141, Potassium 3.4 L, Chloride 103, Carbon Dioxide 29.0, Anion Gap 9, BUN 52 H, Creatinine 2.09 H, Estim Creat Clear Calc 29.91, Est GFR (MDRD) Af Amer 39 L, Est GFR (MDRD) Non-Af 32 L, BUN/Creatinine Ratio 24.9 H, Glucose 120 H, Calcium 8.6, Lactate Dehydrogenase 97, Total Protein 6.3 L, Globulin 3.9, Albumin/Globulin Ratio 0.6 L 04/09/22 05:22: PT 15.0 H, INR 1.2, APTT 38.8 H 04/09/22 06:15: POC Glucose 127 H Physical Exam Narrative Seen and examined. Physical exam General: Alert, Oriented x3, Cooperative HEENT: Atraumatic, PERRLA, EOMI, Normocephalic Oral: Oral mucosa moist. No Gingival or Mucosal Lesions/ Ulcerations Neck: Supple, No JVD, Negative Carotid Bruits Lungs: Air entry diminished more in the left lung base, left pleural effusion. No crepitation/rhonchi. Cardiovascular: Sinus rhythm normal S1, Normal S2, systolic murmur over LLSB and cardiac apex Abdomen: Bowel Sounds Present, Soft, Non Tender, Non-Distended : No renal angle tenderness. No suprapubic tenderness. Extremities: Bilateral pedal pitting edema, 2+. Capillary Refill Less than 3 Seconds Skin: No rashes, No breakdown Musculoskeletal: No Tenderness to Palpation of Joints or Extremities, ROM increased of left lower extremity after stroke. Muscle strength 4+/5 of LLE, 3/5 LUE Neurological: Cranial nerves II-XII grossly intact, DTR 2+/4 and Symmetrical, chronic left upper extremity weakness Psych/Mental Status: Normal Affect, Appropriate. Assessment & Plan Assessment/Plan (1) Congestive heart failure: (2) Pleural effusion on left: PLAN: Plan This is 81-year-old gentleman who was admitted for shortness of breath for 2 weeks with no orthopnea or PND. No chest pain palpitation fever or chills. #Acute exacerbation of heart failure Admitted to PCU 04/06: Repeat left decubitus chest x-ray ordered to look for drainable left pleural effusion.On Lasix 40 mg IV twice daily. Heart failure core measures including intake and output, fluid restriction less than 1500 mL, daily weight monitoring, kidney and electrolytes monitoring. The echo is ordered. EKG did not show acute change. Patient did not have chest pain or pressure therefore unlikely ACS. 04/07: Left decubitus chest x-ray reviewed. It is layered and looks moderate effusion therefore ultrasound-guided thoracocentesis ordered along with the analytical lab, cultures and cytology tests. Hold Plavix, Lovenox. Discussed with the nursing staff. 04/08: Lovenox resumed yesterday. Continue holding Plavix. Voice message left for Dr. Murrieta as cannot hold Plavix for 5 days 04/09: Schedule for left thoracocentesis today. I discussed with Dr. Biggs yesterday for procedure today. We will resume Plavix after 24 hours. 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 His blood pressure was 159/64 and heart rate 66 in ED. In the morning blood pressure normal. At one time in the past patient was on clonidine but probably high dose was given by mistake at home therefore patient was admitted with bradycardia, heart rate 30s. Kidney Doppler in 2021 shows stenosis of right-sided s/p renal angioplasty in July 2021. Follow-up renal Doppler did not show any stenosis. No suspicion for Conn syndrome as potassium is normal tonight. When creatinine stabilizes we will consider HCTZ or increasing the dose of losartan 04/07: Blood pressure is better controlled 135/53. Heart rate 72/min. 04/08: Blood pressure is baseline. #Normocytic normochromic anemia most likely due to CKD: Hb is 8.6. 04/06: Hemoglobin dropped to 7.7. Platelet count normal 275,000. 04/07: Hemoglobin further dropped to 7.5. MCV and RDW normal. Patient does not have obvious GI bleed but stool for occult blood and comprehensive anemia work-up ordered. 04/08: Anemia work-up shows anemia of chronic kidney disease with low iron TIBC. Ferritin 166 iron saturation 6.7%. 1 dose IV iron ordered. 04/09: Hemoglobin low, 1 dose IV iron ordered. #CKD 3a: Cr is 1.76. This is around his baseline. eGFR is 40. On baseline, albumin creatinine ratio less than 30 mg/g. 04/06: Creatinine went up to 1.84, BUN 38. Duplicating Machine Operator consulted for CKD and hypertension diuretic management. Urine ordered for protein creatinine ratio. 04/07: Creatinine increased to 1.95. Lasix decreased to 40 mg IV daily and hold the morning dose for proposed thoracocentesis. As per nursing staff patient has to be 5 days of Plavix before thoracocentesis. 04/08: Creatinine is 1.93 similar to yesterday. Continue Lasix. Electrolytes are in normal range. Bicarb gradually increasing 29. 04/09: Creatinine 2.1. Patient is nonoliguric. Shortness of breath better and volume status is improved. Hold IV Lasix as recommended by dry color tester. #Type 2 diabetes mellitus: on lantus 14 units daily. ISS. Accuchecks ACHS. #Depression: on sertraline. DVT prophylaxis: lovenox Code status: full code Charges/Coding Visit Charges Inpatient E&M: 11882 Subs Hosp L2
[2022-04-09] MEDS: amLODIPine 5 MG Tablet PO (08:07)
[2022-04-09] MEDS: Carvedilol 25 MG Tablet PO ×2 (08:07→22:00)
[2022-04-09] MEDS: Furosemide 40 MG/4 ML Vial IV (08:07)
[2022-04-09] MEDS: Multivitamins,Ther W-Minerals Tablet 1 TABLET PO (08:08)
[2022-04-09] MEDS: Losartan Potassium 25 MG Tablet PO (08:08)
[2022-04-09] MEDS: Gabapentin 100 MG Capsule PO ×2 (08:13→17:06)
[2022-04-09] MEDS: 0.9% Saline Lock 10 ML Syringe IV (08:13)
--- NOTE | 2022-04-09 09:20 | CASEMGMT ---
ALBARO went to meet with patient and his family. Introduced self and role at [facility]. ALBARO explained that patient may be ready for discharge over the weekend and wanted to confirm the plan is [facility] TCU. Patient's Abigail seemed agreeable, but patient's daughter Jimena became anxious. Jimena said they don't know what patient can and cannot do. They thought he was having a procedure on Tuesday. ALBARO explained SW just spoke with physician and he said patient will have his procedure today and he may be ready for d/c tomorrow. ALBARO also told Jimena ALBARO will see if therapy can come and speak with them. ALBARO did talk with Zuleyka from therapy and they will see patient. ALBARO previously made a referral to TCU as that was the plan if patient needed SNF. TCU can accept patient and his insurance is waiving pre-certs. Green sheet on chart for d/c to TCU unless family changes their mind. Plan: [facility]CU under skilled level of care when medically ready. Liza CAMARA
[2022-04-09] MEDS: Spironolactone 25 MG Tablet PO (09:51)
[2022-04-09] MEDS: Senna/Docusate Sodium 1 Tablet 2 TABLET PO ×2 (09:54→22:00)
[2022-04-09] MEDS: Polyethylene Glycol 3350 17 GM PACKET PO (09:55)
[2022-04-09] MEDS: Insulin Lispro 100 UNIT/ML INSULN.PEN SC ×3 (11:20→22:00)
[2022-04-09] MEDS: Insulin Glargine-YFGN 100 UNIT/ML Pen 18 UNIT SC (11:21)
--- NOTE | 2022-04-09 11:21 | PCM.PN.REN ---
Documented by User: YAN Crews 04/09/22 11:33 Subjective Subjective Sitting in chair. Denies complaints. No overnight events. Objective Data Objective Data Vital Signs: Vital Signs Temp Pulse Resp BP Pulse Ox O2 Del Method O2 Flow Rate 98.1 F 65 17 148/62 H 93 Nasal Cannula 3 04/09/22 08:02 04/09/22 08:02 04/09/22 08:02 04/09/22 08:02 04/09/22 09:46 04/09/22 08:02 04/09/22 09:46 FiO2 4 04/06/22 22:10 Oxygen Flow Rate (L/min) 3 Oxygen Delivery Method Nasal Cannula Weight: 85.9 kg Body Mass Index (BMI) 25.6 Intake & Output: Intake and Output for Last 24 Hours 04/07/22 04/08/22 04/09/22 23:59 23:59 23:59 Intake Total 600 / 700 370 / 570 200 / 200 Output Total 2410 / 2870 860 / 860 200 / 200 Balance -1810 / -2170 -490 / -290 0 / 0 Lab / Micro Data Result Diagrams: 04/09/22 05:22 04/09/22 05:22 Labs: Laboratory Results - last 24 hr 04/07/22 08:28: Haptoglobin 374 H 04/08/22 12:02: POC Glucose 279 H 04/08/22 16:45: POC Glucose 149 H 04/08/22 21:51: POC Glucose 175 H 04/09/22 05:22: WBC 8.6, RBC 2.59 L, Hgb 7.4 L, Hct 23.2 L, MCV 89.6, MCH 28.6, MCHC 31.9 L, RDW Std Deviation 47.0 H, RDW Coeff of Cait 14.4, Plt Count 314, MPV 10.6, Immature Gran % (Auto) 0.200, Neut % (Auto) 63.8, Lymph % (Auto) 13.3 L, [place] % (Auto) 14.5 H, Eos % (Auto) 7.5 H, Baso % (Auto) 0.7, Absolute Neuts (auto) 5.5, Absolute Lymphs (auto) 1.15, Nucleated RBC % 0 04/09/22 05:22: Sodium 141, Potassium 3.4 L, Chloride 103, Carbon Dioxide 29.0, Anion Gap 9, BUN 52 H, Creatinine 2.09 H, Estim Creat Clear Calc 29.91, Est GFR (MDRD) Af Amer 39 L, Est GFR (MDRD) Non-Af 32 L, BUN/Creatinine Ratio 24.9 H, Glucose 120 H, Calcium 8.6, Lactate Dehydrogenase 97, Total Protein 6.3 L, Globulin 3.9, Albumin/Globulin Ratio 0.6 L 04/09/22 05:22: PT 15.0 H, INR 1.2, APTT 38.8 H 04/09/22 06:15: POC Glucose 127 H Physical Exam Narrative Alert, awake, oriented x 3. sitting in chair at bedside no JVD s1s2 no murmurs lungs sounds clear anteriorly abdomen soft Trace edema bilateral lower legs Assessment & Plan Assessment/Plan (1) Chronic kidney disease (CKD) stage G3a/A1, moderately decreased glomerular filtration rate (GFR) between 45-59 mL/min/1.73 square meter and albuminuria creatinine ratio less than 30 mg/g: PLAN: His creatinine in 2020 was normal/close to normal at 1.0-1.1. Over the last 1 year due to other changes, creatinine values have fluctuated significantly. Baseline creatinine seems to be between 1.3-1.5. Creatinine now is slightly higher, presumably due to diuresis. Urine analysis shows some proteinuria, urine PCR 0.8 not impressive for nephrotic syndrome renal ultrasound without any hydronephrosis. Nearly symmetrical kidneys. Most likely creatinine changes are related to other ongoing events. (2) Hypertension: PLAN: - NABILA on CKD; overall renal function relatively stable. SCr 1.7 on admission, last few days SCr 1.9 and today SCr 2.1. Patient is nonoliguric and volume status has improved. No acute indication for CANDY CUTTER MACHINE. - HTN: Renal Doppler from beginning of 2021 showed stenosis on the right side, s/p renal angioplasty on the right side in July 2021. Follow-up renal Doppler did not show any stenosis. Currently he is on losartan 25 mg once a day, amlodipine 5 mg once a day, Coreg 25 mg twice a day, hydralazine 3 times a day, He was prescribed Clonidine, developed bradycardia. - Scheduled for thoracocentesis today. He received lasix this am. If SCr up again tomorrow may need to hold IV lasix. Documented by User: Dr. Elham Olivia MD 04/09/22 14:38 Objective Data Lab / Micro Data Result Diagrams: 04/09/22 05:22 04/09/22 05:22 Assessment & Plan Assessment/Plan (1) Chronic kidney disease (CKD) stage G3a/A1, moderately decreased glomerular filtration rate (GFR) between 45-59 mL/min/1.73 square meter and albuminuria creatinine ratio less than 30 mg/g: (2) Hypertension: PLAN: - NABILA on CKD; overall renal function relatively stable. SCr 1.7 on admission, last few days SCr 1.9 and today SCr 2.1. Patient is nonoliguric and volume status has improved. No acute indication for CANDY CUTTER MACHINE. - HTN: Renal Doppler from beginning of 2021 showed stenosis on the right side, s/p renal angioplasty on the right side in July 2021. Follow-up renal Doppler did not show any stenosis. Currently he is on losartan 25 mg once a day, amlodipine 5 mg once a day, Coreg 25 mg twice a day, hydralazine 3 times a day, He was prescribed Clonidine, developed bradycardia. - Scheduled for thoracocentesis today. He received lasix this am. If SCr up again tomorrow may need to hold IV lasix. Addendum dc lasix. cr stable.
[2022-04-09] MEDS: Ferrous Sulfate 325 MG Tablet PO (11:22)
[2022-04-09 16:06] LABS: Bedside Glucose 205 mg/dL (74-106)
[2022-04-09 17:25] LABS: Bedside Glucose 236 mg/dL (74-106)
[2022-04-09] MEDS: Gabapentin 300 MG Capsule PO (21:35)
[2022-04-09] MEDS: Ezetimibe 10 MG Tablet PO (22:00)
[2022-04-09] MEDS: Doxazosin 4 MG Tablet 8 MG PO (22:00)
[2022-04-09] MEDS: Pramipexole Di-HCl 0.125 MG Tablet PO (22:00)
[2022-04-09] MEDS: Sertraline 50 MG Tablet PO (22:00)
[2022-04-10] VITALS (13 sets, daily range): BP systolic 132–150; BP diastolic 50–60; PULSE 53–62; RESP 16–20; TEMP 36.4–37.1; O2SAT 92–97
[2022-04-10] MEDS: Latanoprost 0.005% 1 Bottle 1 DRP EACH EYE ×2 (00:10→21:04)
[2022-04-10 00:56] LABS: Bedside Glucose 156 mg/dL (74-106)
[2022-04-10] MEDS: hydrALAZINE 25 MG Tablet 75 MG PO ×3 (05:46→20:59)
[2022-04-10 06:46] LABS: Bedside Glucose 112 mg/dL (74-106)
[2022-04-10] MEDS: Gabapentin 100 MG Capsule PO ×2 (08:22→16:18)
[2022-04-10] MEDS: amLODIPine 5 MG Tablet PO (08:22)
[2022-04-10] MEDS: Losartan Potassium 25 MG Tablet PO (08:22)
[2022-04-10] MEDS: Carvedilol 25 MG Tablet PO ×2 (08:22→21:59)
[2022-04-10] MEDS: Multivitamins,Ther W-Minerals Tablet 1 TABLET PO (08:24)
[2022-04-10 08:48] LABS: Anion Gap 9 (5-15); BUN 58 mg/dL (7-18); BUN/Creat Ratio 27.4 RATIO (10-20); Calcium,Total 8.6 mg/dL (8.5-10.1); Chloride 104 mmol/L (98-107); Creatinine, Serum 2.12 mg/dL (0.70-1.30); EST Glomerular Filtration Rate 32 mL/min (>60); Est Glom Filt Rate - Afr Amer 39 mL/min (>60); Estimated Creatinine Clearance 29.49 ml/min; Glucose 125 mg/dL (74-106); Potassium 3.7 mmol/L (3.5-5.1); Sodium Level 141 mmol/L (136-145)
[2022-04-10] MEDS: Spironolactone 50 MG Tablet PO (09:48)
[2022-04-10] MEDS: Insulin Lispro 100 UNIT/ML INSULN.PEN SC ×3 (11:01→21:07)
[2022-04-10] MEDS: Insulin Glargine-YFGN 100 UNIT/ML Pen 18 UNIT SC (11:02)
--- NOTE | 2022-04-10 11:35 | CASEMGMT ---
SW went to patient's room. not in room. SW called patient's . SW left voice mail inquiring as to the discharge plan for patient and requesting call back. Conchita VIDES
[2022-04-10 11:40] LABS: Bedside Glucose 206 mg/dL (74-106)
--- NOTE | 2022-04-10 11:54 | CASEMGMT ---
ALBARO received call from patient's , Abigail. Abigail said that the MD gave violetaetn option to stay through the weekend and have the procedure, that he was to have yesterday, on Tuesday or go home today or tomorrow and have the procedure as an outpatient on Tuesday. Abigail said that there is no way that she can have patient come home as it is difficult to get him in and out of the care and thus he will stay over the weekend. ALBARO asked about plans at discharge for patient and Abigail said that she is leaning toward patient going to TCU at discharge. Abigail requested this verse writer's phone number and ALBARO also provided her with Liza Luna's phone number. ALBARO remains available if needs arise. Conchita VIDES
--- NOTE | 2022-04-10 14:27 | PCM.PN.HOSP ---
Objective Data Objective Data Vital Signs: Vital Signs Temp Pulse Resp BP Pulse Ox O2 Del Method O2 Flow Rate 97.9 F 57 L 18 132/54 H 92 Nasal Cannula 3 04/10/22 09:00 04/10/22 13:08 04/10/22 09:00 04/10/22 13:08 04/10/22 09:05 04/10/22 13:56 04/10/22 13:56 FiO2 4 04/06/22 22:10 Oxygen Flow Rate (L/min) 3 Oxygen Delivery Method Nasal Cannula Weight: 189 lb 6.033 oz Body Mass Index (BMI) 25.6 Intake & Output: Intake and Output for Last 24 Hours 04/08/22 04/09/22 04/10/22 23:59 23:59 23:59 Intake Total 370 / 570 950 / 950 360 / 360 Output Total 860 / 860 200 / 300 700 / 700 Balance -490 / -290 750 / 650 -340 / -340 Lab / Micro Data Result Diagrams: 04/09/22 05:22 04/10/22 08:05 Labs: Laboratory Results - last 24 hr 04/09/22 11:19: POC Glucose 236 H 04/09/22 15:41: POC Glucose 205 H 04/09/22 21:34: POC Glucose 156 H 04/10/22 06:24: POC Glucose 112 H 04/10/22 08:05: Sodium 141, Potassium 3.7, Chloride 104, Carbon Dioxide 28.0, Anion Gap 9, BUN 58 H, Creatinine 2.12 H, Estim Creat Clear Calc 29.49, Est GFR (MDRD) Af Amer 39 L, Est GFR (MDRD) Non-Af 32 L, BUN/Creatinine Ratio 27.4 H, Glucose 125 H, Calcium 8.6 04/10/22 11:00: POC Glucose 206 H Micro: Microbiology 04/10/22 11:55 Stool Stool Occult Blood (DAX) - Final Physical Exam Narrative Seen and examined. Patient is alert shortness of breath is better. Physical exam General: Alert, Oriented x3, Cooperative HEENT: Atraumatic, PERRLA, EOMI, Normocephalic Oral: Oral mucosa moist. No Gingival or Mucosal Lesions/ Ulcerations Neck: Supple, No JVD, Negative Carotid Bruits Lungs: Air entry diminished more in the left lung base, left pleural effusion. No crepitation/rhonchi. On 3 L of oxygen. No tachypnea Cardiovascular: Sinus rhythm normal S1, Normal S2, systolic murmur over LLSB and cardiac apex Abdomen: Bowel Sounds Present, Soft, Non Tender, Non-Distended : No renal angle tenderness. No suprapubic tenderness. Extremities: Bilateral pedal pitting edema, 2+. Capillary Refill Less than 3 Seconds Skin: No rashes, No breakdown Musculoskeletal: No Tenderness to Palpation of Joints or Extremities, ROM increased of left lower extremity after stroke. Muscle strength 4+/5 of LLE, 3/5 LUE Neurological: Cranial nerves II-XII grossly intact, DTR 2+/4 and Symmetrical, chronic left upper extremity weakness Psych/Mental Status: Normal Affect, Appropriate. Assessment & Plan Assessment/Plan (1) Congestive heart failure: (2) Pleural effusion on left: PLAN: Plan This is 81-year-old gentleman who was admitted for shortness of breath for 2 weeks with no orthopnea or PND. No chest pain palpitation fever or chills. #Acute exacerbation of heart failure Admitted to PCU 04/06: Repeat left decubitus chest x-ray ordered to look for drainable left pleural effusion.On Lasix 40 mg IV twice daily. Heart failure core measures including intake and output, fluid restriction less than 1500 mL, daily weight monitoring, kidney and electrolytes monitoring. The echo is ordered. EKG did not show acute change. Patient did not have chest pain or pressure therefore unlikely ACS. 04/07: Left decubitus chest x-ray reviewed. It is layered and looks moderate effusion therefore ultrasound-guided thoracocentesis ordered along with the analytical lab, cultures and cytology tests. Hold Plavix, Lovenox. Discussed with the nursing staff. 04/08: Lovenox resumed yesterday. Continue holding Plavix. Voice message left for Dr. Murrieta as cannot hold Plavix for 5 days 04/09: Schedule for left thoracocentesis today. I discussed with Dr. Biggs yesterday for procedure today. We will resume Plavix after 24 hours. 04/10: Order for left arthrocentesis was discontinued by radiology no orders of unknown reason even though I talked to Dr. Murrieta as mentioned above. I talked to the patient yesterday evening when the nurse notified me about 5:20 PM and I informed and apologized to the patient. Next possible thoracocentesis will be on Tuesday. 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 His blood pressure was 159/64 and heart rate 66 in ED. In the morning blood pressure normal. At one time in the past patient was on clonidine but probably high dose was given by mistake at home therefore patient was admitted with bradycardia, heart rate 30s. Kidney Doppler in 2021 shows stenosis of right-sided s/p renal angioplasty in July 2021. Follow-up renal Doppler did not show any stenosis. No suspicion for Conn syndrome as potassium is normal tonight. When creatinine stabilizes we will consider HCTZ or increasing the dose of losartan 04/07: Blood pressure is better controlled 135/53. Heart rate 72/min. 04/08: Blood pressure is baseline. #Normocytic normochromic anemia most likely due to CKD: Hb is 8.6. 04/06: Hemoglobin dropped to 7.7. Platelet count normal 275,000. 04/07: Hemoglobin further dropped to 7.5. MCV and RDW normal. Patient does not have obvious GI bleed but stool for occult blood and comprehensive anemia work-up ordered. 04/08: Anemia work-up shows anemia of chronic kidney disease with low iron TIBC. Ferritin 166 iron saturation 6.7%. 1 dose IV iron ordered. 04/09: Hemoglobin low, 1 dose IV iron ordered. 04/10: Hemoglobin is above 7 for last several days. No acute bleeding. #CKD 3a: Cr is 1.76. This is around his baseline. eGFR is 40. On baseline, albumin creatinine ratio less than 30 mg/g. 04/06: Creatinine went up to 1.84, BUN 38. Residential Substance Abuse Counselor consulted for CKD and hypertension diuretic management. Urine ordered for protein creatinine ratio. 04/07: Creatinine increased to 1.95. Lasix decreased to 40 mg IV daily and hold the morning dose for proposed thoracocentesis. As per nursing staff patient has to be 5 days of Plavix before thoracocentesis. 04/08: Creatinine is 1.93 similar to yesterday. Continue Lasix. Electrolytes are in normal range. Bicarb gradually increasing 29. 04/09: Creatinine 2.1. Patient is nonoliguric. Shortness of breath better and volume status is improved. Hold IV Lasix as recommended by staff home therapy rn. 04/10: Creatinine 2.12. #Type 2 diabetes mellitus: on lantus 14 units daily. ISS. Accuchecks ACHS. 04/02 glucose fluctuates between 112-206. In the morning it is 112 fasting. #Depression: on sertraline. DVT prophylaxis: lovenox Code status: full code Charges/Coding Visit Charges Inpatient E&M: 93182 Subs Hosp L2
--- NOTE | 2022-04-10 15:48 | PCM.PN.REN ---
Subjective Subjective Following for NABILA on CKD. The patient denies chest pain or shortness of breath at rest. He denies nausea or vomiting. Appetite is marginal. There is still some edema of the lower extremities. Objective Data Objective Data Vital Signs: Vital Signs Temp Pulse Resp BP Pulse Ox O2 Del Method O2 Flow Rate 97.9 F 57 L 18 132/54 H 92 Nasal Cannula 3 04/10/22 09:00 04/10/22 13:08 04/10/22 09:00 04/10/22 13:08 04/10/22 09:05 04/10/22 13:56 04/10/22 13:56 FiO2 4 04/06/22 22:10 Oxygen Flow Rate (L/min) 3 Oxygen Delivery Method Nasal Cannula Weight: 85.9 kg Body Mass Index (BMI) 25.6 Intake & Output: Intake and Output for Last 24 Hours 04/08/22 04/09/22 04/10/22 23:59 23:59 23:59 Intake Total 370 / 570 950 / 950 360 / 360 Output Total 860 / 860 200 / 300 700 / 700 Balance -490 / -290 750 / 650 -340 / -340 Lab / Micro Data Result Diagrams: 04/09/22 05:22 04/10/22 08:05 Labs: Laboratory Results - last 24 hr 04/09/22 11:19: POC Glucose 236 H 04/09/22 15:41: POC Glucose 205 H 04/09/22 21:34: POC Glucose 156 H 04/10/22 06:24: POC Glucose 112 H 04/10/22 08:05: Sodium 141, Potassium 3.7, Chloride 104, Carbon Dioxide 28.0, Anion Gap 9, BUN 58 H, Creatinine 2.12 H, Estim Creat Clear Calc 29.49, Est GFR (MDRD) Af Amer 39 L, Est GFR (MDRD) Non-Af 32 L, BUN/Creatinine Ratio 27.4 H, Glucose 125 H, Calcium 8.6 04/10/22 11:00: POC Glucose 206 H Micro: Microbiology 04/10/22 11:55 Stool Stool Occult Blood (DAX) - Final Physical Exam Narrative Alert, awake, oriented x 3. sitting in chair at bedside no JVD Normal s1s2 no murmurs lungs sounds clear anteriorly abdomen soft Trace edema bilateral lower legs Assessment & Plan Assessment/Plan (1) Chronic kidney disease (CKD) stage G3a/A1, moderately decreased glomerular filtration rate (GFR) between 45-59 mL/min/1.73 square meter and albuminuria creatinine ratio less than 30 mg/g: (2) Hypertension: PLAN: Plan Impression/Plan: The patient is a 81-year-old man with past history of type 2 diabetes mellitus, hypertension, stroke, CAD, heart failure with preserved ejection fraction, and hyperlipidemia. The patient was admitted to the hospital on 04/05/2022 with acute exacerbation of heart failure with preserved ejection fraction. Nephrology is following for NABILA on CKD. Acute kidney injury on chronic kidney disease stage IIIa. Baseline serum creatinine is around 1.7-1.8 mg/dL. Renal function is stable in the last 24 hours. Serum creatinine was 2.09 mg/dL yesterday and is 2.12 mg/dL today. Patient is nonoliguric and volume status has improved. Okay from nephrology standpoint to diurese if needed. 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 The patient should follow-up with us in 3 to 4 weeks after discharge. Hypertension. Renal Doppler from beginning of 2021 showed stenosis on the right side, s/p renal angioplasty on the right side in July 2021. Follow-up renal Doppler did not show any stenosis. Currently, he is on losartan 25 mg once a day, amlodipine 5 mg once a day, carvedilol 25 mg twice a day, hydralazine 75 mg 3 times a day, spironolactone 50 mg once a day, and doxazosin 8 mg nightly. He was prescribed clonidine in the past, but he developed bradycardia. BP is reasonably controlled on current medical regimen. We will continue to monitor BP. Nephrology plan discussed with Dr. Umanzor.
[2022-04-10] MEDS: Insulin Lispro 100 UNIT/ML INSULN.PEN 6 UNIT SC (16:19)
[2022-04-10 18:11] LABS: Bedside Glucose 190 mg/dL (74-106)
[2022-04-10] MEDS: Gabapentin 300 MG Capsule PO (20:58)
[2022-04-10] MEDS: Doxazosin 4 MG Tablet 8 MG PO (20:59)
[2022-04-10] MEDS: Pramipexole Di-HCl 0.125 MG Tablet PO (20:59)
[2022-04-10] MEDS: Sertraline 50 MG Tablet PO (21:00)
[2022-04-10] MEDS: Ezetimibe 10 MG Tablet PO (21:00)
--- NOTE | 2022-04-10 21:23 | CPS ---
Home auto CPAP
[2022-04-10 23:00] LABS: Bedside Glucose 181 mg/dL (74-106)
[2022-04-11] VITALS (11 sets, daily range): BP systolic 122–148; BP diastolic 49–61; PULSE 50–62; RESP 16–18; TEMP 36.4–37.1; O2SAT 93–97
[2022-04-11] MEDS: hydrALAZINE 25 MG Tablet 75 MG PO ×3 (06:07→21:44)
[2022-04-11 06:35] LABS: Absolute Lymphocyte Count 1.16 X10^3/uL (0.83-4.51); Absolute Neutrophil Count 5.3 X10^3/uL (2.0-7.7); Basophil# 0.07 X10^3/uL; Basophil% 0.8 % (0-1); Eosinophil# 0.69 X10^3/uL; Eosinophils% 8.4 % (0-5); Hematocrit 23.5 % (40-54); Hemoglobin 7.6 g/dL (13.0-16.5); Lymphocyte # 1.16 X10^3/ul (0.83-4.51); Mean Corp Hgb Conc 32.3 g/dL (32-36); Mean Corpuscular Volume 89.7 fL (80-94); Mean Platelet Vol. 10.3 fl (6.2-12.0); Monocyte% 12.1 % (0-10); NRBC Flagged by Analyzer 0 % (0-5); Neutrophil % 64.2 % (47-70); Platelet Count 339 K/mm3 (150-450); RBC Distribution Width CV 14.3 % (11.6-14.6); RBC Distribution Width SD 46.7 fl (35.1-43.9); Red Blood Count 2.62 M/mm3 (4.6-6.2); White Blood Count 8.3 K/mm3 (4.4-11.0)
[2022-04-11 07:03] LABS: Anion Gap 6 (5-15); BUN 56 mg/dL (7-18); Calcium,Total 8.8 mg/dL (8.5-10.1); Chloride 103 mmol/L (98-107); EST Glomerular Filtration Rate 34 mL/min (>60); Est Glom Filt Rate - Afr Amer 41 mL/min (>60); Estimated Creatinine Clearance 31.26 ml/min; Glucose 122 mg/dL (74-106); Potassium 3.7 mmol/L (3.5-5.1); Sodium Level 141 mmol/L (136-145)
[2022-04-11] MEDS: Gabapentin 100 MG Capsule PO ×2 (07:44→16:08)
[2022-04-11] MEDS: Multivitamins,Ther W-Minerals Tablet 1 TABLET PO (07:45)
[2022-04-11] MEDS: Insulin Lispro 100 UNIT/ML INSULN.PEN 6 UNIT SC ×3 (07:45→16:01)
[2022-04-11 08:10] LABS: Bedside Glucose 131 mg/dL (74-106)
[2022-04-11] MEDS: Spironolactone 50 MG Tablet PO (08:58)
[2022-04-11] MEDS: Carvedilol 25 MG Tablet PO ×2 (08:58→21:45)
[2022-04-11] MEDS: Losartan Potassium 25 MG Tablet PO (08:58)
[2022-04-11] MEDS: amLODIPine 5 MG Tablet PO (08:58)
[2022-04-11] MEDS: Ferrous Sulfate 325 MG Tablet PO (08:59)
--- NOTE | 2022-04-11 09:28 | PCM.PN.HOSP ---
Objective Data Objective Data Vital Signs: Vital Signs Temp Pulse Resp BP Pulse Ox O2 Del Method O2 Flow Rate 97.6 F L 56 L 16 148/61 H 96 Venturi Mask 2 04/11/22 03:29 04/11/22 06:07 04/11/22 03:29 04/11/22 06:07 04/11/22 03:29 04/11/22 07:45 04/11/22 07:45 FiO2 4 04/06/22 22:10 Oxygen Flow Rate (L/min) 2 Oxygen Delivery Method Venturi Mask Weight: 189 lb 6.033 oz Body Mass Index (BMI) 25.6 Intake & Output: Intake and Output for Last 24 Hours 04/09/22 04/10/22 04/11/22 23:59 23:59 23:59 Intake Total 950 / 950 360 / 385 50 / 50 Output Total 200 / 300 700 / 1100 800 / 800 Balance 750 / 650 -340 / -715 -750 / -750 Lab / Micro Data Result Diagrams: 04/11/22 06:00 04/11/22 06:00 Labs: Laboratory Results - last 24 hr 04/10/22 11:00: POC Glucose 206 H 04/10/22 16:18: POC Glucose 190 H 04/10/22 21:07: POC Glucose 181 H 04/11/22 06:00: Sodium 141, Potassium 3.7, Chloride 103, Carbon Dioxide 32.0, Anion Gap 6, BUN 56 H, Creatinine 2.00 H, Estim Creat Clear Calc 31.26, Est GFR (MDRD) Af Amer 41 L, Est GFR (MDRD) Non-Af 34 L, BUN/Creatinine Ratio 28.0 H, Glucose 122 H, Calcium 8.8 04/11/22 06:00: WBC 8.3, RBC 2.62 L, Hgb 7.6 L, Hct 23.5 L, MCV 89.7, MCH 29.0, MCHC 32.3, RDW Std Deviation 46.7 H, RDW Coeff of Cait 14.3, Plt Count 339, MPV 10.3, Immature Gran % (Auto) 0.500, Neut % (Auto) 64.2, Lymph % (Auto) 14.0 L, [place] % (Auto) 12.1 H, Eos % (Auto) 8.4 H, Baso % (Auto) 0.8, Absolute Neuts (auto) 5.3, Absolute Lymphs (auto) 1.16, Nucleated RBC % 0 04/11/22 07:40: POC Glucose 131 H Micro: Microbiology 04/10/22 11:55 Stool Stool Occult Blood (DAX) - Final Physical Exam Narrative Seen and examined. No chest pain. Shortness of breath is better. Patient walking with PT on side Physical exam General: Alert, Oriented x3, Cooperative HEENT: Atraumatic, PERRLA, EOMI, Normocephalic Oral: Oral mucosa moist. No Gingival or Mucosal Lesions/ Ulcerations Neck: Supple, No JVD, Negative Carotid Bruits Lungs: Air entry diminished more in the left lung base, left pleural effusion. No crepitation/rhonchi. On 3 L of oxygen. No tachypnea Cardiovascular: Sinus rhythm normal S1, Normal S2, systolic murmur over LLSB and cardiac apex Abdomen: Bowel Sounds Present, Soft, Non Tender, Non-Distended : No renal angle tenderness. No suprapubic tenderness. Extremities: Bilateral pedal pitting edema, 1+. Capillary Refill Less than 3 Seconds Skin: No rashes, No breakdown Musculoskeletal: No Tenderness to Palpation of Joints or Extremities, ROM increased of left lower extremity after stroke. Muscle strength 4+/5 of LLE, 3/5 LUE Neurological: Cranial nerves II-XII grossly intact, DTR 2+/4 and Symmetrical, chronic left upper extremity weakness Psych/Mental Status: Normal Affect, Appropriate. Assessment & Plan Assessment/Plan (1) Congestive heart failure: (2) Pleural effusion on left: PLAN: Plan This is 81-year-old gentleman who was admitted for shortness of breath for 2 weeks with no orthopnea or PND. No chest pain palpitation fever or chills. #Acute exacerbation of heart failure Admitted to PCU 04/06: Repeat left decubitus chest x-ray ordered to look for drainable left pleural effusion.On Lasix 40 mg IV twice daily. Heart failure core measures including intake and output, fluid restriction less than 1500 mL, daily weight monitoring, kidney and electrolytes monitoring. The echo is ordered. EKG did not show acute change. Patient did not have chest pain or pressure therefore unlikely ACS. 04/07: Left decubitus chest x-ray reviewed. It is layered and looks moderate effusion therefore ultrasound-guided thoracocentesis ordered along with the analytical lab, cultures and cytology tests. Hold Plavix, Lovenox. Discussed with the nursing staff. 04/08: Lovenox resumed yesterday. Continue holding Plavix. Voice message left for Dr. Murrieta as cannot hold Plavix for 5 days 04/09: Schedule for left thoracocentesis today. I discussed with Dr. Biggs yesterday for procedure today. We will resume Plavix after 24 hours. 04/10: Order for left thoracentesis was discontinued by radiology no orders of unknown reason even though I talked to Dr. Murrieta as mentioned above. I talked to the patient yesterday evening when the nurse notified me about 5:20 PM and I informed and apologized to the patient. Next possible thoracocentesis will be on Tuesday. 04/11: Thoracocentesis with labs ordered for tomorrow AM. Hold Lovenox tomorrow AM. Plavix already on hold. 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 His blood pressure was 159/64 and heart rate 66 in ED. In the morning blood pressure normal. At one time in the past patient was on clonidine but probably high dose was given by mistake at home therefore patient was admitted with bradycardia, heart rate 30s. Kidney Doppler in 2021 shows stenosis of right-sided s/p renal angioplasty in July 2021. Follow-up renal Doppler did not show any stenosis. No suspicion for Conn syndrome as potassium is normal tonight. When creatinine stabilizes we will consider HCTZ or increasing the dose of losartan 04/07: Blood pressure is better controlled 135/53. Heart rate 72/min. 04/08: Blood pressure is baseline. 04/11: BP is controlled 122/58. #Normocytic normochromic anemia most likely due to CKD: Hb is 8.6. 04/06: Hemoglobin dropped to 7.7. Platelet count normal 275,000. 04/07: Hemoglobin further dropped to 7.5. MCV and RDW normal. Patient does not have obvious GI bleed but stool for occult blood and comprehensive anemia work-up ordered. 04/08: Anemia work-up shows anemia of chronic kidney disease with low iron TIBC. Ferritin 166 iron saturation 6.7%. 1 dose IV iron ordered. 04/09: Hemoglobin low, 1 dose IV iron ordered. 04/10: Hemoglobin is above 7 for last several days. No acute bleeding. 04/11: Hemoglobin remains 7.6. Patient had 2 doses of IV iron and oral iron therapy. #CKD 3a: Cr is 1.76. This is around his baseline. eGFR is 40. On baseline, albumin creatinine ratio less than 30 mg/g. 04/06: Creatinine went up to 1.84, BUN 38. 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 Urine ordered for protein creatinine ratio. 04/07: Creatinine increased to 1.95. Lasix decreased to 40 mg IV daily and hold the morning dose for proposed thoracocentesis. As per nursing staff patient has to be 5 days of Plavix before thoracocentesis. 04/08: Creatinine is 1.93 similar to yesterday. Continue Lasix. Electrolytes are in normal range. Bicarb gradually increasing . 04/09: Creatinine 2.1. Patient is nonoliguric. Shortness of breath better and volume status is improved. Hold IV Lasix as recommended by commercial trailer truck driver. 04/10: Creatinine 2.12. 04/10: Creatinine 2.0. Continue current Lasix and Spironolactone #Type 2 diabetes mellitus: on lantus 14 units daily. ISS. Accuchecks ACHS. 04/02 glucose fluctuates between 112-206. In the morning it is 112 fasting. #Depression: on sertraline. DVT prophylaxis: lovenox Code status: full code Charges/Coding Visit Charges Inpatient E&M: 34710 Subs Hosp L2
[2022-04-11] MEDS: Furosemide 40 MG/4 ML Vial IV (10:28)
[2022-04-11] MEDS: 0.9% Saline Lock 10 ML Syringe IV (10:28)
[2022-04-11] MEDS: Insulin Lispro 100 UNIT/ML INSULN.PEN SC ×2 (11:09→21:51)
[2022-04-11] MEDS: Insulin Glargine-YFGN 100 UNIT/ML Pen 18 UNIT SC (11:09)
[2022-04-11 11:30] LABS: Bedside Glucose 233 mg/dL (74-106)
[2022-04-11 18:15] LABS: Bedside Glucose 139 mg/dL (74-106)
--- NOTE | 2022-04-11 20:28 | PCM.PN.REN ---
Subjective Subjective Following for NABILA on CKD. The patient denies chest pain or shortness of breath at rest. There is no nausea or vomiting. Appetite is still marginal. Objective Data Objective Data Vital Signs: Vital Signs Temp Pulse Resp BP Pulse Ox O2 Del Method O2 Flow Rate 97.9 F 50 L 18 135/57 H 97 Nasal Cannula 3 04/11/22 15:30 04/11/22 15:30 04/11/22 15:30 04/11/22 15:30 04/11/22 15:30 04/11/22 15:30 04/11/22 15:30 FiO2 4 04/06/22 22:10 Oxygen Flow Rate (L/min) 3 Oxygen Delivery Method Nasal Cannula Weight: 85.9 kg Body Mass Index (BMI) 25.6 Intake & Output: Intake and Output for Last 24 Hours 04/09/22 04/10/22 04/11/22 23:59 23:59 23:59 Intake Total 950 / 950 360 / 385 890 / 890 Output Total 200 / 300 700 / 1100 1500 / 1500 Balance 750 / 650 -340 / -715 -610 / -610 Lab / Micro Data Result Diagrams: 04/11/22 06:00 04/11/22 06:00 Labs: Laboratory Results - last 24 hr 04/10/22 21:07: POC Glucose 181 H 04/11/22 06:00: Sodium 141, Potassium 3.7, Chloride 103, Carbon Dioxide 32.0, Anion Gap 6, BUN 56 H, Creatinine 2.00 H, Estim Creat Clear Calc 31.26, Est GFR (MDRD) Af Amer 41 L, Est GFR (MDRD) Non-Af 34 L, BUN/Creatinine Ratio 28.0 H, Glucose 122 H, Calcium 8.8 04/11/22 06:00: WBC 8.3, RBC 2.62 L, Hgb 7.6 L, Hct 23.5 L, MCV 89.7, MCH 29.0, MCHC 32.3, RDW Std Deviation 46.7 H, RDW Coeff of Cait 14.3, Plt Count 339, MPV 10.3, Immature Gran % (Auto) 0.500, Neut % (Auto) 64.2, Lymph % (Auto) 14.0 L, [place] % (Auto) 12.1 H, Eos % (Auto) 8.4 H, Baso % (Auto) 0.8, Absolute Neuts (auto) 5.3, Absolute Lymphs (auto) 1.16, Nucleated RBC % 0 04/11/22 07:40: POC Glucose 131 H 04/11/22 11:07: POC Glucose 233 H 04/11/22 15:58: POC Glucose 139 H Micro: Microbiology 04/10/22 11:55 Stool Stool Occult Blood (DAX) - Final Physical Exam Narrative Alert, awake, oriented x 3. sitting in chair at bedside no JVD Normal s1s2 no murmurs lungs sounds clear anteriorly abdomen soft Trace edema bilateral lower legs Assessment & Plan Assessment/Plan (1) Chronic kidney disease (CKD) stage G3a/A1, moderately decreased glomerular filtration rate (GFR) between 45-59 mL/min/1.73 square meter and albuminuria creatinine ratio less than 30 mg/g: (2) Hypertension: PLAN: Plan Impression/Plan: The patient is a 81-year-old man with past history of type 2 diabetes mellitus, hypertension, stroke, CAD, heart failure with preserved ejection fraction, and hyperlipidemia. The patient was admitted to the hospital on 04/05/2022 with acute exacerbation of heart failure with preserved ejection fraction. Nephrology is following for NABILA on CKD. Acute kidney injury on chronic kidney disease stage IIIa. Baseline serum creatinine is around 1.7-1.8 mg/dL. Renal function is stable in the last 24 hours. Serum creatinine was 2.09 mg/dL yesterday and is 2.00 mg/dL today. Patient is nonoliguric and volume status has improved. Okay from nephrology standpoint to diurese if needed. He was started on furosemide 40 mg IV today-agree. No acute indication for [employer]. The patient should follow-up with us in 3 to 4 weeks after discharge. Hypertension. Renal Doppler from beginning of 2021 showed stenosis on the right side, s/p renal angioplasty on the right side in July 2021. Follow-up renal Doppler did not show any stenosis. Currently, he is on losartan 25 mg once a day, amlodipine 5 mg once a day, carvedilol 25 mg twice a day, hydralazine 75 mg 3 times a day, spironolactone 50 mg once a day, and doxazosin 8 mg nightly. He was prescribed clonidine in the past, but he developed bradycardia. BP is reasonably controlled on current medical regimen. We will continue to monitor BP.
[2022-04-11] MEDS: Doxazosin 4 MG Tablet 8 MG PO (21:44)
[2022-04-11] MEDS: Latanoprost 0.005% 1 Bottle 1 DRP EACH EYE (21:45)
[2022-04-11] MEDS: Pramipexole Di-HCl 0.125 MG Tablet PO (21:45)
[2022-04-11] MEDS: Sertraline 50 MG Tablet PO (21:46)
[2022-04-11] MEDS: Ezetimibe 10 MG Tablet PO (21:46)
[2022-04-11] MEDS: Gabapentin 300 MG Capsule PO (21:52)
[2022-04-12] VITALS (8 sets, daily range): BP systolic 116–147; BP diastolic 40–58; PULSE 54–64; RESP 16–20; TEMP 36.5–36.8; O2SAT 94–97
--- NOTE | 2022-04-12 | FLU_PTH ---
PATIENT: SHAISTA CLOUD LOC: [facility] U#:[id number] AGE/SX: 81/M ROOM: [facility] RE04/05/[address]: Dr. Adiel Umanzor MD : [id number] BED: 1 DIS: 04/12/2022 SPEC #: [id number] RECD: 04/12/22 08:43 STATUS: AMINTA REQ #: [id number] JAMES: 04/12/22 00:[address]: Adiel Umanzor DEPT: CYTOLOGY RECD BY: Risa Jonas ENTERED: 04/12/22 10:08 SP TYPE: Fluid OTHR DR: MD Dr. Elham De La Cruz MD Dr. Loren Kirchner, MD Dr. Nana Yaa Koram, MD Tissues: THORACIC FLUID Procedures: Special Stain Group II Surgery Specimen Level IV Cytospin Fluid HEADER OPERATION: Thoracentesis PRE-OP DIAGNOSIS: Pleural effusion TISSUE SUBMITTED: Thoracentesis fluid for cytology DIAGNOSIS CYTOLOGY Thoracentesis fluid for cytology (cytospin and cell block): Negative for malignant cells. See comment. JESUS:[email or web address] 04/13/2022 COMMENT Clinical correlation and appropriate follow up are necessary. CYTOLOGY STUDY Slides are reviewed. CYTOLOGY GROSS Received is 85 ml of kit cloudy fluid labeled with the patient's name and and designated per the requisition as thoracentesis. Submitted for cytology preparation including cell block. / bogdan 04/12/2022 TC:5 CPT: 65513, 92162
[2022-04-12 00:10] LABS: Bedside Glucose 210 mg/dL (74-106)
[2022-04-12 06:16] LABS: Absolute Neutrophil Count 5.7 X10^3/uL (2.0-7.7); Basophil# 0.07 X10^3/uL; Basophil% 0.8 % (0-1); Eosinophil# 0.65 X10^3/uL; Eosinophils% 7.3 % (0-5); Hemoglobin 8.3 g/dL (13.0-16.5); Lymphocyte % 13.4 % (19-41); Mean Corp Hgb Conc 30.7 g/dL (32-36); Mean Corpuscular Hgb 27.9 pg (27.0-32.0); Mean Corpuscular Volume 90.9 fL (80-94); Mean Platelet Vol. 10.8 fl (6.2-12.0); Monocyte# 1.24 X10^3/uL; Monocyte% 13.8 % (0-10); NRBC Flagged by Analyzer 0 % (0-5); Neutrophil # 5.74 X10^3/uL (2.7-7.7); Platelet Count 369 K/mm3 (150-450); RBC Distribution Width CV 14.4 % (11.6-14.6); RBC Distribution Width SD 47.3 fl (35.1-43.9); Red Blood Count 2.97 M/mm3 (4.6-6.2)
[2022-04-12] MEDS: hydrALAZINE 25 MG Tablet 75 MG PO (06:26)
[2022-04-12 06:56] LABS: AST(SGOT) 11 U/L (15-37); Alanine Aminotransfer ALT/SGPT 14 U/L (16-61); Albumin, Serum 2.5 g/dL (3.2-5.0); Alkaline Phosphatase 51 U/L (45-117); Anion Gap 7 (5-15); BUN 58 mg/dL (7-18); BUN/Creat Ratio 30.2 RATIO (10-20); Calcium,Total 8.8 mg/dL (8.5-10.1); Chloride 102 mmol/L (98-107); Creatinine, Serum 1.92 mg/dL (0.70-1.30); EST Glomerular Filtration Rate 36 mL/min (>60); Est Glom Filt Rate - Afr Amer 43 mL/min (>60); Estimated Creatinine Clearance 32.56 ml/min; Globulin 3.7 g/dL (2.2-4.2); Glucose 134 mg/dL (74-106); LDH 113 U/L (87-241); Potassium 3.8 mmol/L (3.5-5.1); Protein, Total 6.2 g/dL (6.4-8.2); Sodium Level 138 mmol/L (136-145)
[2022-04-12 08:01] LABS: Bedside Glucose 147 mg/dL (74-106)
[2022-04-12] MEDS: Lidocaine 2% (20 ml mdv) 20 ML Vial INFILT (08:01)
--- NOTE | 2022-04-12 08:10 | RAD_ITS ---
STUDY: X-RAY CHEST REASON FOR EXAM: Male, 81 years old. Post thora TECHNIQUE: AP inspiration and expiration views following left thoracentesis. COMPARISON: Comparison is made with prior study dated 04/06/2022. FINDINGS: EKG electrodes are seen. Residual pleural parenchymal changes at the left lung base. This is markedly improved. No evidence of pneumothorax. RAD/Chest Insp/Exp 2 View IMPRESSION: Status post left thoracentesis. No evidence of pneumothorax. Electronically Signed: Micah Murrieta MD at 8:26 EST ,
--- NOTE | 2022-04-12 08:10 | US_ITS ---
PROCEDURE: ULTRASOUND GUIDED THORACENTESIS. DATE: 04/12/2022. INDICATION: Male, 81 years old. Left pleural effusion. PHYSICIAN: Micah Murrieta M.D. PROCEDURE: The risks, benefits, and alternatives to the procedure were explained to the patient. The specific risks of bleeding, infection, and pneumothorax requiring chest tube insertion were discussed and accepted. Written informed consent was obtained. Ultrasonographic evaluation of the left lower pleural space was carried out. An adequate pocket was identified. The patient was placed in the sitting, upright position. The overlying skin was prepped and draped in sterile fashion. 1% lidocaine was administered subcutaneously for local anesthesia. Under ultrasound guidance, a 5 Norwegian thoracentesis needle/catheter system was advanced into the left posterior lower pleural fluid collection. Approximately 1960 mL of kit-colored fluid was drained. The catheter was removed, and a sterile dressing was applied. A specimen was collected and sent to the laboratory for analysis, as requested by the referring clinician. The patient tolerated the procedure well. A chest x-ray was ordered. US/Thoracentesis W US IMPRESSION: Ultrasound-guided left thoracentesis. Electronically Signed: Micah Murrieta MD at 8:43 EST ,
[2022-04-12 08:45] LABS: Cytology, Body Fluid / CSF SEE PATHOLOGY REPORT
[2022-04-12] MEDS: Carvedilol 25 MG Tablet PO (09:05)
[2022-04-12] MEDS: Losartan Potassium 25 MG Tablet PO (09:05)
[2022-04-12] MEDS: Multivitamins,Ther W-Minerals Tablet 1 TABLET PO (09:05)
[2022-04-12] MEDS: amLODIPine 5 MG Tablet PO (09:05)
[2022-04-12] MEDS: Gabapentin 100 MG Capsule PO (09:06)
[2022-04-12 09:14] LABS: Body Fluid Mononuclear WBC # 0.608 10^3/uL; Body Fluid Mononuclear WBC % 78.3 %; Body Fluid Polynuclear WBC # 0.169 10^3/uL; Body Fluid Polynuclear WBC % 21.7 %; Body Fluid Total Cells Counted 0.847 10^3/ul; Red Cell Count/Body Fluid 0.005 10^6/ul; White Blood Count/Body Fluid 0.777 10^3/uL
[2022-04-12 09:15] LABS: Appearance/Body Fluid SL CLDY; Auto B Fluid Analyzer BKGD Ct COUNTS W/IN LIMITS (W/IN LIMITS); Color/Body Fluid YELLOW; Source- Body Fluid THORACENTESIS
--- NOTE | 2022-04-12 09:25 | PCM.TXEXTCAR ---
Diet Diet Order/Speech Therapy: 04/05/22 18:03 Diet: Cardiac - Heart Healthy Routine Orders/Code Status Suppository Type: Dulcolax 10mg Suppository Frequency: Daily PRN Code Status: Full Code Therapies Weight Bearing: Weight bearing as tolerated Extremity Affected:: Bilateral Lower Physical Therapy: Eval and Treat Occupational Therapy: Eval and Treat Speech Therapy: Eval and Treat Problem/Diagnosis (1) Chronic kidney disease (CKD) stage G3a/A1, moderately decreased glomerular filtration rate (GFR) between 45-59 mL/min/1.73 square meter and albuminuria creatinine ratio less than 30 mg/g: Status: Chronic Code(s): N18.31 - Chronic kidney disease, stage 3a (2) Hypertension: Status: Chronic Code(s): I10 - Essential (primary) hypertension Plan This is 81-year-old gentleman who was admitted for shortness of breath for 2 weeks with no orthopnea or PND. No chest pain palpitation fever or chills. #Acute exacerbation of heart failure Admitted to PCU 04/06: Repeat left decubitus chest x-ray ordered to look for drainable left pleural effusion.On Lasix 40 mg IV twice daily. Heart failure core measures including intake and output, fluid restriction less than 1500 mL, daily weight monitoring, kidney and electrolytes monitoring. The echo is ordered. EKG did not show acute change. Patient did not have chest pain or pressure therefore unlikely ACS. 04/07: Left decubitus chest x-ray reviewed. It is layered and looks moderate effusion therefore ultrasound-guided thoracocentesis ordered along with the analytical lab, cultures and cytology tests. Hold Plavix, Lovenox. Discussed with the nursing staff. 04/08: Lovenox resumed yesterday. Continue holding Plavix. Voice message left for Dr. Murrieta as cannot hold Plavix for 5 days 04/09: Schedule for left thoracocentesis today. I discussed with Dr. Biggs yesterday for procedure today. We will resume Plavix after 24 hours. 04/10: Order for left thoracentesis was discontinued by radiology no orders of unknown reason even though I talked to Dr. Murrieta as mentioned above. I talked to the patient yesterday evening when the nurse notified me about 5:20 PM and I informed and apologized to the patient. Next possible thoracocentesis will be on Tuesday. 04/11: Thoracocentesis with labs ordered for tomorrow AM. Hold Lovenox tomorrow AM. Plavix already on hold. 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 His blood pressure was 159/64 and heart rate 66 in ED. In the morning blood pressure normal. At one time in the past patient was on clonidine but probably high dose was given by mistake at home therefore patient was admitted with bradycardia, heart rate 30s. Kidney Doppler in 2021 shows stenosis of right-sided s/p renal angioplasty in July 2021. Follow-up renal Doppler did not show any stenosis. No suspicion for Conn syndrome as potassium is normal tonight. When creatinine stabilizes we will consider HCTZ or increasing the dose of losartan 04/07: Blood pressure is better controlled 135/53. Heart rate 72/min. 04/08: Blood pressure is baseline. 04/11: BP is controlled 122/58. #Normocytic normochromic anemia most likely due to CKD: Hb is 8.6. 04/06: Hemoglobin dropped to 7.7. Platelet count normal 275,000. 04/07: Hemoglobin further dropped to 7.5. MCV and RDW normal. Patient does not have obvious GI bleed but stool for occult blood and comprehensive anemia work-up ordered. 04/08: Anemia work-up shows anemia of chronic kidney disease with low iron TIBC. Ferritin 166 iron saturation 6.7%. 1 dose IV iron ordered. 04/09: Hemoglobin low, 1 dose IV iron ordered. 04/10: Hemoglobin is above 7 for last several days. No acute bleeding. 04/11: Hemoglobin remains 7.6. Patient had 2 doses of IV iron and oral iron therapy. #CKD 3a: Cr is 1.76. This is around his baseline. eGFR is 40. On baseline, albumin creatinine ratio less than 30 mg/g. 04/06: Creatinine went up to 1.84, BUN 38. [employer] consulted for CKD and hypertension diuretic management. Urine ordered for protein creatinine ratio. 04/07: Creatinine increased to 1.95. Lasix decreased to 40 mg IV daily and hold the morning dose for proposed thoracocentesis. As per nursing staff patient has to be 5 days of Plavix before thoracocentesis. 04/08: Creatinine is 1.93 similar to yesterday. Continue Lasix. Electrolytes are in normal range. Bicarb gradually increasing . 04/09: Creatinine 2.1. Patient is nonoliguric. Shortness of breath better and volume status is improved. Hold IV Lasix as recommended by welder gas tungsten arc. 04/10: Creatinine 2.12. 04/10: Creatinine 2.0. Continue current Lasix and Spironolactone #Type 2 diabetes mellitus: on lantus 14 units daily. ISS. Accuchecks ACHS. 04/02 glucose fluctuates between 112-206. In the morning it is 112 fasting. #Depression: on sertraline. DVT prophylaxis: lovenox Code status: full code Allergies/Procedures Done in Hospital Allergies meloxicam [From Mobic] Allergy (Intermediate, Verified 04/05/22 12:08) itching pravastatin [From Pravachol] Adverse Reaction (Mild, Verified 04/05/22 12:08) myalgia cholestyramine Adverse Reaction (Verified 04/05/22 12:08) hypoglycemia Type of Care/Length of Stay Estimated LOS: Convalescent Care Less Than 30 days Type of Care Needed: Skilled Rehab Potential: Good Prognosis: Good Additional Orders/Day of Discharge Day of Discharge: 04/12/22 Dietary and Speech Recommendations Dietitian Recommendations/Changes: continue cardiac diet w/ fluid restriction as indicated Discharge Plan Admission Admit Date/Time: 04/05/22 16:30 Primary Reason for Your Visit: Acute on chronic heart failure, left pleural effusion, CKD, severe anemia w Attending Provider: Adiel Umanzor Primary Care Provider: Jennifer Watt Consulting Providers: Jessica Meyer ; [place] ; Elham Olivia Instructions Patient Instructions: JAIME RN Thoracentesis Dc Discharge Orders/Prescriptions Prescriptions: New ferrous sulfate [FeroSul] 325 mg (65 mg iron) Tablet 325 mg PO QODAY Qty: 0 0RF albuterol sulfate 2.5 mg /3 mL (0.083 %) Solution For Nebulization 2.5 mg inhalation Q2H PRN PRN (Reason: Dyspnea, wheezing) Qty: 0 0RF insulin lispro [Humalog KwikPen Insulin] 100 unit/mL Insulin Pen 6 unit subcut TIDAC Qty: 15 0RF insulin lispro [Humalog KwikPen Insulin] 100 unit/mL Insulin Pen See Protocol subcut ACHS Qty: 0 0RF Protocol: 4. Sliding Scale Insulin High-Med Dosing Condition: 150-199 mg/dl = 2 units Condition: 200-259 mg/dl = 4 units Condition: 260-324 mg/dl = 6 units Condition: 325-374 mg/dl = 8 units Condition: 375-409 mg/dl = 10 units Condition: 410-449 mg/dl = 11 units Condition: Greater than 449 call physician Protocol Text: - Use for Total Daily Dose of Insulin 56-80 units - Patient who are insulin resistant or septic HIGH MEDIUM DOSING ALGORITHM polyethylene glycol 3350 17 gram Powder In Packet 17 g PO DAILY Qty: 0 0RF spironolactone 50 mg Tablet 50 mg PO DAILY Qty: 0 0RF Continued multivitamin,[id number] tablet tablet 1 tab PO QDAY insulin lispro [Humalog KwikPen Insulin] 100 unit/mL insulin pen 5 unit subcut TIDAC PRN (Reason: diabetes) Label Comments: if bs over 130 hydrochlorothiazide 25 mg tablet 25 mg PO DAILY aspirin 81 mg tablet,chewable 81 mg PO BREAKFAST latanoprost 0.005 % drops 1 drp EACH EYE HS carvedilol 25 mg tablet 25 mg PO BID Rx Instructions: must administer with a meal/food clopidogrel [Plavix] 75 mg tablet 75 mg PO DAILY doxazosin 8 mg tablet 8 mg PO QHS pramipexole 0.125 mg tablet 0.125 mg PO QHS sertraline 50 mg tablet 50 mg PO QHS ezetimibe [Zetia] 10 mg tablet 10 mg PO QHS Rx Instructions: take at bedtime sennosides-docusate sodium [Stool Softener-Stimulant Laxat] 8.6-50 mg Tablet 2 tab PO BID PRN PRN (Reason: Constipation) Qty: 0 0RF amlodipine 5 mg Tablet 5 mg PO DAILY 30 Days Qty: 30 0RF acetaminophen 500 mg Tablet 1,000 mg PO Q6H PRN PRN (Reason: Pain Score 1-10) Qty: 0 0RF (DME) Handicap Placard See Rx Instructions .Route .MEDSUPPLY Qty: 1 0RF Rx Instructions: Length of time: 5 years (DME) pen needle, diabetic [BD Sanaz 2nd Gen Pen Needle] 32 gauge x 5/32 needle See Rx Instructions .ROUTE .MEDSUPPLY Qty: 50 2RF Rx Instructions: use once daily to adminster insulin as directed. gabapentin 100 mg capsule 100 mg PO BID Qty: 180 3RF gabapentin 300 mg capsule 300 mg PO 2100 Qty: 90 3RF losartan 25 mg tablet 25 mg PO DAILY 30 Days Qty: 90 3RF hydralazine 25 mg tablet 75 mg PO TID 30 Days Qty: 270 3RF Changed insulin glargine-yfgn 100 unit/mL (3 mL) insulin pen 18 unit subcut DAILY Qty: 15 0RF Discontinued ferrous sulfate 325 mg (65 mg iron) Capsule, Extended Release 65 mg PO DAILY Referrals / Follow Up: Jennifer Watt MD [Primary Care Provider] - Disposition Disposition (needs filled in before D/C Order can be placed): [facility]
[2022-04-12 09:30] LABS: Glucose, Body Fluid 150 mg/dL (40-70); LDH,Body Fluid 128 Units/l (Not Establ.); Protein, Body Fluid 3.9 g/dL (Not Establ.)
--- NOTE | 2022-04-12 09:55 | CASEMGMT ---
Addendum entered by Rachel Mcrae 04/12/22 12:01: Social Work Pt is approved by insurance to go to TCU today. SW faxed over all discharge instructions. SW let know, she is in the room, she and pt were already aware he was going to TCU today. No further needs, pt to TCU today. ELOY Lazo Original Note: Social Work SW spoke w/physician, he states pt is ready for discharge today. SW called TCU and left a message for Ondina inquiring about precert. She is to let SW know. ALBARO will continue to follow. ELOY Lazo
[2022-04-12 10:10] LABS: Body Fluid QC Type(s) BF1Q; Lymphocytes 37 %; Mesothelial Cells 3 %; Monocytes 9 %; Neutrophil (Segs) 18 %; Other Cell Type/BF 33 %
[2022-04-12] MEDS: Insulin Lispro 100 UNIT/ML INSULN.PEN SC (11:22)
[2022-04-12] MEDS: Clopidogrel Bisulfate 75 MG Tablet PO (11:22)
[2022-04-12] MEDS: Insulin Lispro 100 UNIT/ML INSULN.PEN 6 UNIT SC (11:22)
[2022-04-12] MEDS: Spironolactone 50 MG Tablet PO (11:22)
[2022-04-12] MEDS: Insulin Glargine-YFGN 100 UNIT/ML Pen 18 UNIT SC (11:23)
--- NOTE | 2022-04-12 11:44 | PCM.DC.SUM ---
Providers Date of Admission: 04/05/22 Date of Discharge: 04/12/22 Primary Care Physician: Dr. Jennifer Watt MD Consultations 04/05/22 18:36 Consult: Cardiology Routine Consulting Provider: [place] Reason for Consult: acute heart failure EMERGENT Consult: No Notified: Yes Date Notified: 04/05/22 Time Notified: 18:39 Method of Notification: Verbal 04/06/22 10:39 Consult: Nephrology Routine Consulting Provider: Elham Olivia Reason for Consult: NABILA on CKD, HTN EMERGENT Consult: No Notified: Yes Date Notified: 04/06/22 Time Notified: 10:39 Method of Notification: Verbal Reason For Visit: CHF, LEFT PLEURAL EFFUSION, CHRONIC KIDNEY DISEASE Diagnosis Discharge Diagnosis (1) Chronic kidney disease (CKD) stage G3a/A1, moderately decreased glomerular filtration rate (GFR) between 45-59 mL/min/1.73 square meter and albuminuria creatinine ratio less than 30 mg/g: Status: Chronic Code(s): N18.31 - Chronic kidney disease, stage 3a (2) Hypertension: Status: Chronic Code(s): I10 - Essential (primary) hypertension Plan This is 81-year-old gentleman who was admitted for shortness of breath for 2 weeks with no orthopnea or PND. He was found to have left moderate pleural effusion which required thoracocentesis, severe anemia, chronic kidney disease and debility due to previous stroke. No chest pain palpitation fever or chills. #Acute exacerbation of heart failure Admitted to PCU 04/06: Repeat left decubitus chest x-ray ordered to look for drainable left pleural effusion.On Lasix 40 mg IV twice daily. Heart failure core measures including intake and output, fluid restriction less than 1500 mL, daily weight monitoring, kidney and electrolytes monitoring. The echo is ordered. EKG did not show acute change. Patient did not have chest pain or pressure therefore unlikely ACS. 04/07: Left decubitus chest x-ray reviewed. It is layered and looks moderate effusion therefore ultrasound-guided thoracocentesis ordered along with the analytical lab, cultures and cytology tests. Hold Plavix, Lovenox. Discussed with the nursing staff. 04/08: Lovenox resumed yesterday. Continue holding Plavix. Voice message left for Dr. Murrieta as cannot hold Plavix for 5 days 04/09: Schedule for left thoracocentesis today. I discussed with Dr. Biggs yesterday for procedure today. We will resume Plavix after 24 hours. 04/10: Order for left thoracentesis was discontinued by radiology no orders of unknown reason even though I talked to Dr. Murrieta as mentioned above. I talked to the patient yesterday evening when the nurse notified me about 5:20 PM and I informed and apologized to the patient. Next possible thoracocentesis will be on Tuesday. 04/11: Thoracocentesis with labs ordered for tomorrow AM. Hold Lovenox tomorrow AM. Plavix already on hold. 04/12: Thoracocentesis was done. Fluid analysis although as per lights criteria is exaggerated but patient got Lasix therefore fluid total protein is falsely elevated but it is transudate as patient has mainly mononuclear cells 79% and fluid LDH and serum LDH are normal. 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 His blood pressure was 159/64 and heart rate 66 in ED. In the morning blood pressure normal. At one time in the past patient was on clonidine but probably high dose was given by mistake at home therefore patient was admitted with bradycardia, heart rate 30s. Kidney Doppler in 2021 shows stenosis of right-sided s/p renal angioplasty in July 2021. Follow-up renal Doppler did not show any stenosis. No suspicion for Conn syndrome as potassium is normal tonight. When creatinine stabilizes we will consider HCTZ or increasing the dose of losartan 04/07: Blood pressure is better controlled 135/53. Heart rate 72/min. 04/08: Blood pressure is baseline. 04/11: BP is controlled 122/58. 04/12: Blood pressure is reasonably controlled. #Normocytic normochromic anemia most likely due to CKD: Hb is 8.6. 04/06: Hemoglobin dropped to 7.7. Platelet count normal 275,000. 04/07: Hemoglobin further dropped to 7.5. MCV and RDW normal. Patient does not have obvious GI bleed but stool for occult blood and comprehensive anemia work-up ordered. 04/08: Anemia work-up shows anemia of chronic kidney disease with low iron TIBC. Ferritin 166 iron saturation 6.7%. 1 dose IV iron ordered. 04/09: Hemoglobin low, 1 dose IV iron ordered. 04/10: Hemoglobin is above 7 for last several days. No acute bleeding. 04/11: Hemoglobin remains 7.6. Patient had 2 doses of IV iron and oral iron therapy. 04/12: Hemoglobin is 8.3. Resume Plavix. Continue oral ferrous sulfate once every other day. #CKD 3a: Cr is 1.76. This is around his baseline. eGFR is 40. On baseline, albumin creatinine ratio less than 30 mg/g. 04/06: Creatinine went up to 1.84, BUN 38. Chocolate Temperer consulted for CKD and hypertension diuretic management. Urine ordered for protein creatinine ratio. 04/07: Creatinine increased to 1.95. Lasix decreased to 40 mg IV daily and hold the morning dose for proposed thoracocentesis. As per nursing staff patient has to be 5 days of Plavix before thoracocentesis. 04/08: Creatinine is 1.93 similar to yesterday. Continue Lasix. Electrolytes are in normal range. Bicarb gradually increasing . 04/09: Creatinine 2.1. Patient is nonoliguric. Shortness of breath better and volume status is improved. Hold IV Lasix as recommended by emergency medicine medical director. 04/10: Creatinine 2.12. 04/10: Creatinine 2.0. Continue current Lasix and Spironolactone 04/12: Creatinine 1.92. Discussed with the emergency medicine medical director. Patient is discharged on HCTZ his home medication and his spironolactone. #Type 2 diabetes mellitus: on lantus 14 units daily. ISS. Accuchecks ACHS. 04/05 glucose fluctuates between 112-206. In the morning it is 112 fasting. 04/12: Glucose is elevated therefore dose of Lantus increased. Continue Humalog insulin along with sliding scale in TCU. #Depression: on sertraline. DVT prophylaxis: lovenox Code status: full code Process of thoracocentesis and fluid analysis discussed with the patient and his . Labs imaging and hospital course discussed with the patient and his . Patient can be transferred/discharged to TCU Discharge medication reconciliation done. Discharge follow-up instructions completed. Discharge process discussed with the patient and all questions were answered to patient's satisfaction. Total time spent, exact 35 minutes on discharge meds reconciliation, examination, coordination of care with nurses and ancillary staff, review of imaging and blood test and discussion with the patient on follow-up instructions. Medications at Discharge Home Medications multivitamin,rx-eeev-jgpavikg (Complete Multivitamin tablet) 1 tab PO QDAY supplement 03/03/17 aspirin 81 mg chewable tablet 81 mg PO BREAKFAST heart health 01/02/21 Handicap Placard #1 ea 02/12/21 pen needle, diabetic 32 gauge x 5/32 (BD Sanaz 2nd Gen Pen Needle) #50 ea 06/02/21 carvedilol 25 mg tablet 25 mg PO BID heart 02/24/22 clopidogrel 75 mg tablet (Plavix) 75 mg PO DAILY blood thinner 02/24/22 doxazosin 8 mg tablet 8 mg PO QHS bph 02/24/22 ezetimibe 10 mg tablet (Zetia) 10 mg PO QHS cholesterol 02/24/22 latanoprost 0.005 % eye drops 1 drp EACH EYE HS eyes 02/24/22 pramipexole 0.125 mg tablet 0.125 mg PO QHS parkinsons 02/24/22 sertraline 50 mg tablet 50 mg PO QHS mood 02/24/22 sennosides 8.6 mg-docusate sodium 50 mg tablet (Stool Softener-Stimulant Laxative) 2 tab PO BID PRN PRN Constipation #0 tabs 02/27/22 acetaminophen 500 mg tablet 1,000 mg PO Q6H PRN PRN Pain Score 1-10 #0 tabs 03/09/22 amlodipine 5 mg tablet 5 mg PO DAILY 30 days #30 tabs 03/09/22 insulin lispro 100 unit/mL subcutaneous pen (Humalog KwikPen (U-100) Insulin) 5 unit subcut TIDAC PRN diabetes 03/17/22 gabapentin 100 mg capsule 100 mg PO BID pain #180 caps 03/18/22 gabapentin 300 mg capsule 300 mg PO 2100 pain #90 caps 03/18/22 losartan 25 mg tablet 25 mg PO DAILY 30 days #90 tabs 03/18/22 hydralazine 25 mg tablet 75 mg PO TID 30 days #270 tabs 03/25/22 hydrochlorothiazide 25 mg tablet 25 mg PO DAILY diuretic 04/05/22 albuterol sulfate 2.5 mg/3 mL (0.083 %) solution for nebulization 2.5 mg (3 mL) inhalation Q2H PRN PRN Dyspnea, wheezing #0 mL 04/12/22 ferrous sulfate 325 mg (65 mg iron) tablet (FeroSul) 325 mg PO QODAY #0 tabs 04/12/22 insulin glargine-yfgn 100 unit/mL (3 mL) subcutaneous pen 18 unit (0.18 mL) subcut DAILY diabetes #15 mL 04/12/22 insulin lispro 100 unit/mL subcutaneous pen (Humalog KwikPen (U-100) Insulin) 6 unit (0.06 mL) subcut TIDAC #15 mL 04/12/22 insulin lispro 100 unit/mL subcutaneous pen (Humalog KwikPen (U-100) Insulin) See Protocol subcut ACHS #0 mL 04/12/22 polyethylene glycol 3350 17 gram oral powder packet 17 g PO DAILY #0 ea 04/12/22 spironolactone 50 mg tablet 50 mg PO DAILY #0 tabs 04/12/22 Physical Exam Narrative Seen and examined. No chest pain. Shortness of breath is better. Patient had thoracocentesis earlier in the morning around 8:00. Physical exam General: Mild lethargy after thoracocentesis with patient is awake. Oriented x3, Cooperative HEENT: Atraumatic, PERRLA, EOMI, Normocephalic Oral: Oral mucosa moist. No Gingival or Mucosal Lesions/ Ulcerations Neck: Supple, No JVD, Negative Carotid Bruits Lungs: Air entry diminished more in the left lung base, left pleural effusion. No crepitation/rhonchi. On 3 L of oxygen. No tachypnea Cardiovascular: Sinus rhythm normal S1, Normal S2, systolic murmur over LLSB and cardiac apex Abdomen: Bowel Sounds Present, Soft, Non Tender, Non-Distended : No renal angle tenderness. No suprapubic tenderness. Extremities: Bilateral pedal pitting edema, 1+. Capillary Refill Less than 3 Seconds Skin: No rashes, No breakdown Musculoskeletal: No Tenderness to Palpation of Joints or Extremities, ROM increased of left lower extremity after stroke. Muscle strength 4+/5 of LLE, 3/5 LUE Neurological: Cranial nerves II-XII grossly intact, DTR 2+/4 and Symmetrical, chronic left upper extremity weakness Psych/Mental Status: Normal Affect, Appropriate. Weight / BMI Weight Weight: 189 lb 6.033 oz Body Mass Index (BMI) 25.6 ABG / Lab / Microbiology Data Result Diagrams: 04/12/22 05:34 04/12/22 05:34 Laboratory: Laboratory Results - last 24 hr 04/10/22 08:00: Fluid Glucose 150 H, Fluid Total Protein 3.9, Fluid LDH 128 04/11/22 15:58: POC Glucose 139 H 04/11/22 21:50: POC Glucose 210 H 04/12/22 05:34: Sodium 138, Potassium 3.8, Chloride 102, Carbon Dioxide 29.0, Anion Gap 7, BUN 58 H, Creatinine 1.92 H, Estim Creat Clear Calc 32.56, Est GFR (MDRD) Af Amer 43 L, Est GFR (MDRD) Non-Af 36 L, BUN/Creatinine Ratio 30.2 H, Glucose 134 H, Calcium 8.8, Total Bilirubin 0.30, Direct Bilirubin 0.10, AST 11 L, ALT 14 L, Alkaline Phosphatase 51, Lactate Dehydrogenase 113, Total Protein 6.2 L, Albumin 2.5 L, Globulin 3.7 04/12/22 05:34: WBC 9.0, RBC 2.97 L, Hgb 8.3 L, Hct 27.0 L, MCV 90.9, MCH 27.9, MCHC 30.7 L, RDW Std Deviation 47.3 H, RDW Coeff of Cait 14.4, Plt Count 369, MPV 10.8, Immature Gran % (Auto) 0.700, Neut % (Auto) 64.0, Lymph % (Auto) 13.4 L, [place] % (Auto) 13.8 H, Eos % (Auto) 7.3 H, Baso % (Auto) 0.8, Absolute Neuts (auto) 5.7, Absolute Lymphs (auto) 1.20, Nucleated RBC % 0 04/12/22 05:34: Lactate Dehydrogenase Cancelled, Total Protein Cancelled, Globulin Cancelled, Albumin/Globulin Ratio Cancelled 04/12/22 07:35: POC Glucose 147 H 04/12/22 08:00: Fluid Source THORACENTESIS, Fluid Color YELLOW, Fluid Appearance SL CLDY, Fluid WBC 0.777, Fluid RBC 0.005, Fluid Tot Cell Count 0.847, Fld Polynuclear WBCs # 0.169, Fld Polynuclear WBCs % 21.7, Fluid Mononuclear WBCs 0.608, Fld Mononuclear WBCs % 78.3, Fluid Neutrophils 18, Fluid Lymphocytes 37, Fluid Monocytes 9, Fld Mesothelial Cells 3, Fluid Other Cells 33, Fl Pathologist Comment May follow, Fluid Comment 2 SEE COMMENT Microbiology: Microbiology 04/10/22 11:55 Stool Stool Occult Blood (DAX) - Final Radiography Diagnostic Testing: Radiology Impression Chest X-Ray 04/12/22 08:10 IMPRESSION: Status post left thoracentesis. No evidence of pneumothorax. Electronically Signed: Micah Murrieta MD at 8:26 EST , Thoracentesis Ultrasound 04/12/22 08:10 IMPRESSION: Ultrasound-guided left thoracentesis. Electronically Signed: Micah Murrieta MD at 8:43 EST , Meaningful Use Info Meaningful Use Diagnoses (Choose all that apply): None applicable and CHF CHF ALVIN/ARB ordered at discharge?: Yes Documented LVEF (%): 65 Discharge Plan Admission Admit Date/Time: 04/05/22 16:30 Primary Reason for Your Visit: Acute on chronic heart failure, left pleural effusion, CKD, severe anemia w Attending Provider: Adiel Umanzor Primary Care Provider: Jennifer Watt Consulting Providers: Jessica Meyer ; [place] ; Elham Olivia Instructions Patient Instructions: JAIME RN Thoracentesis Dc Discharge Orders/Prescriptions Prescriptions: New ferrous sulfate [FeroSul] 325 mg (65 mg iron) Tablet 325 mg PO QODAY Qty: 0 0RF albuterol sulfate 2.5 mg /3 mL (0.083 %) Solution For Nebulization 2.5 mg inhalation Q2H PRN PRN (Reason: Dyspnea, wheezing) Qty: 0 0RF insulin lispro [Humalog KwikPen Insulin] 100 unit/mL Insulin Pen 6 unit subcut TIDAC Qty: 15 0RF insulin lispro [Humalog KwikPen Insulin] 100 unit/mL Insulin Pen See Protocol subcut ACHS Qty: 0 0RF Protocol: 4. Sliding Scale Insulin High-Med Dosing Condition: 150-199 mg/dl = 2 units Condition: 200-259 mg/dl = 4 units Condition: 260-324 mg/dl = 6 units Condition: 325-374 mg/dl = 8 units Condition: 375-409 mg/dl = 10 units Condition: 410-449 mg/dl = 11 units Condition: Greater than 449 call physician Protocol Text: - Use for Total Daily Dose of Insulin 56-80 units - Patient who are insulin resistant or septic HIGH MEDIUM DOSING ALGORITHM polyethylene glycol 3350 17 gram Powder In Packet 17 g PO DAILY Qty: 0 0RF spironolactone 50 mg Tablet 50 mg PO DAILY Qty: 0 0RF Continued multivitamin,ir-cdqk-krvqorrq tablet tablet 1 tab PO QDAY insulin lispro [Humalog KwikPen Insulin] 100 unit/mL insulin pen 5 unit subcut TIDAC PRN (Reason: diabetes) Label Comments: if bs over 130 hydrochlorothiazide 25 mg tablet 25 mg PO DAILY aspirin 81 mg tablet,chewable 81 mg PO BREAKFAST latanoprost 0.005 % drops 1 drp EACH EYE HS carvedilol 25 mg tablet 25 mg PO BID Rx Instructions: must administer with a meal/food clopidogrel [Plavix] 75 mg tablet 75 mg PO DAILY doxazosin 8 mg tablet 8 mg PO QHS pramipexole 0.125 mg tablet 0.125 mg PO QHS sertraline 50 mg tablet 50 mg PO QHS ezetimibe [Zetia] 10 mg tablet 10 mg PO QHS Rx Instructions: take at bedtime sennosides-docusate sodium [Stool Softener-Stimulant Laxat] 8.6-50 mg Tablet 2 tab PO BID PRN PRN (Reason: Constipation) Qty: 0 0RF amlodipine 5 mg Tablet 5 mg PO DAILY 30 Days Qty: 30 0RF acetaminophen 500 mg Tablet 1,000 mg PO Q6H PRN PRN (Reason: Pain Score 1-10) Qty: 0 0RF (DME) Handicap Placard See Rx Instructions .Route .MEDSUPPLY Qty: 1 0RF Rx Instructions: Length of time: 5 years (DME) pen needle, diabetic [BD Sanaz 2nd Gen Pen Needle] 32 gauge x 5/32 needle See Rx Instructions .ROUTE .MEDSUPPLY Qty: 50 2RF Rx Instructions: use once daily to adminster insulin as directed. gabapentin 100 mg capsule 100 mg PO BID Qty: 180 3RF gabapentin 300 mg capsule 300 mg PO 2100 Qty: 90 3RF losartan 25 mg tablet 25 mg PO DAILY 30 Days Qty: 90 3RF hydralazine 25 mg tablet 75 mg PO TID 30 Days Qty: 270 3RF Changed insulin glargine-yfgn 100 unit/mL (3 mL) insulin pen 18 unit subcut DAILY Qty: 15 0RF Discontinued ferrous sulfate 325 mg (65 mg iron) Capsule, Extended Release 65 mg PO DAILY Referrals / Follow Up: Jennifer Watt MD [Primary Care Provider] - Disposition Disposition (needs filled in before D/C Order can be placed): Custodial Facility Charges/Coding Visit Charges Inpatient E&M: 69451 Disch Hosp >30min
[2022-04-12 12:01] LABS: Bedside Glucose 261 mg/dL (74-106)
--- NOTE | 2022-04-12 12:27 | NURSING ---
Nurse report called to Cherelle FLORENTINO who will assume care of pt on TCU
[2022-04-12 14:02] LABS: Pathologist Comment/Body Fluid Reviewed
[2022-04-13 20:22] LABS: Amylase Body Fluid 11 U/L (.); pH, Body Fluid 11254 7.1 (Not Estab.)
== END 2022-04-12 13:47 | disposition skilled nursing facility (03) | DRG 291 ==
LOC: ED 16:29 → PCU 16:41
PROVIDERS: Family Medicine; Admitting Provider Student in an Organized Health Care Education/Training Program; Emergency Provider Emergency Medicine; PCP Internal Medicine; Visit Provider Internal Medicine
DX: I13.0 Hypertensive heart and chronic kidney disease with heart failure and stage 1 through stage 4 chronic kidney disease, or unspecified chronic kidney disease (principal); I50.31 Acute diastolic (congestive) heart failure; I69.354 Hemiplegia and hemiparesis following cerebral infarction affecting left non-dominant side; N17.9 Acute kidney failure, unspecified; J91.8 Pleural effusion in other conditions classified elsewhere; I27.20 Pulmonary hypertension, unspecified; J84.89 Other specified interstitial pulmonary diseases; D63.1 Anemia in chronic kidney disease; E11.22 Type 2 diabetes mellitus with diabetic chronic kidney disease; N18.31 Chronic kidney disease, stage 3a; Z79.4 Long term (current) use of insulin; E11.51 Type 2 diabetes mellitus with diabetic peripheral angiopathy without gangrene; I70.1 Atherosclerosis of renal artery; E78.5 Hyperlipidemia, unspecified; I25.10 Atherosclerotic heart disease of native coronary artery without angina pectoris; G47.33 Obstructive sleep apnea (adult) (pediatric); F32.A Depression, unspecified; Z20.822 Contact with and (suspected) exposure to COVID-19; Z79.82 Long term (current) use of aspirin; Z79.02 Long term (current) use of antithrombotics/antiplatelets
CPT/HCPCS: 32555; 36415; 71046; 80048; 80076; 82150; 82274; 82570; 82607; 82728; 82945; 82962; 83010; 83540; 83550; 83605; 83615; 83880; 83986; 84156; 84157; 84484; 85025; 85045; 85610; 85730; 87070; 87075; 87205; 87426; 88108; 88305; 88313; 89050; 93005; 97110; 97116; 97162; 97166; 97530; 97535; 99252; 99285; J7050; A4216; G0463; J1940; J2916

== ENCOUNTER 2022-04-12 14:07 | Inpatient (IN) | payer MEDICARE, SELFPAY ==
[2022-04-12 14:12] VITALS: BP 145/55; PULSE 59; RESP 16; O2SAT 96; BMI 24.5
--- NOTE | 2022-04-12 15:46 | NURSING ---
[facility] Note; Activity Asset: Aicha Singh has returned to TCU after a brief stay at home. [place] is independent in his choice of daily activities. He has a smartphone and tablet he uses for games and talking w/family and friends on. He will read the newspaper and daily chronicle. Family will visit w/him daily.
--- NOTE | 2022-04-12 16:41 | CASEMGMT ---
Social Work Met with patient to complete initial assessment. Pt known to this worker from previous stay. No changes to previous assessment, code status (DNR-CCA, WITH intubation) or MOLST. Educated to [facility] insurance. Pt states things were going well at home until he became very SOB. SW inquired about DC plan and services available to assist with hospital readmission, symptom management, etc. Pt stands by his statement from previous admission that he is leaving the DC disposition up to his . Pt expresses understanding of caregiver burnout. Pt is accepting on help in the home but knows is not. SW educated to CCN and palliative services, now with CHF dx. Pt prefers this worker speak with about services. SW agreed. SW to continue to follow. Tiffanie Meyers, [employer]ER HELPER
[2022-04-12 16:45] LABS: Bedside Glucose 280 mg/dL (74-106)
[2022-04-12] MEDS: Gabapentin 100 MG Capsule PO (17:16)
[2022-04-12] MEDS: Carvedilol 25 MG Tablet PO (17:16)
[2022-04-12] MEDS: Insulin Lispro 100 UNIT/ML INSULN.PEN SC (17:16)
--- NOTE | 2022-04-12 19:10 | HP.PCM_ITS ---
HPI - General General Date of Admission: 04/12/22 Date of Service: 04/12/22 Chief Complaint: Here for rehab. HPI Narrative 04/05/2022 SHAISTA CLOUD, is a 81 Male who presents to [facility] Emergency Department with shortness of breath. Increasing shortness of breath for several days, chronic congestion. Swelling of legs. Lasix given for acute congestive heart failure, BNP 282. 04/05/2022 Admit to Hospital. Lasix 40mg IV bid, 1500cc fluid restriction for acute on chronic diastolic heart failure. Trend hemoglobin for Hemoglobin 8.6. Creatinine 1.76 baseline chronic kidney disease stage 3b. 04/06/[address] Lucero recommended continued diuresis, monitor renal function, consider left thoracentesis for left pleural effusion. Increase Amlodipine to 10mg daily for better blood pressure control. Consider pharmacologic stress test before discharge. 04/06/2022 Hemoglobin 7.7. 04/06/2022 Dr. Olivia noted creatinine changes secondary to ongoing events. 04/07/2022 Breathing better. Hold Plavix, Hold Lovenox, order left thoracentesis. Consider HCTZ or increasing Losartan for improved blood pressure control. Evaluate hemoglobin 7.5, no obvious bleeding. Decrease Lasix to 40mg IV daily secondary to elevated creatinine 1.95. 04/08/2022 Lovenox resumed, hold Plavix. IV iron x 1 dose. Creatinine 1.93, Bicarb 29. 04/09/2022 Left thoracentesis today, cancelled. IV iron x 1 dose. Hold IV Lasix for creatinine 2.1 04/10/2022 Left thoracentesis cancelled. Hemoglobin > 7. Creatinine 2.12. 04/12/2022 Left thoracentesis drained 1960ml kit fluid. 04/12/2022 Admit to TCU with debility, here for rehabilitation, strengthening, prior to discharge home with . [facility] Medical History Absent pedal pulses Acute left-sided muscle weakness Depression Dysphagia Essential hypertension Facial droop due to acute stroke History of CVA (cerebrovascular accident) (12/2020) Hydrocele in adult Hyperlipidemia Incontinence Limb weakness Normocytic normochromic anemia Osteoarthritis Peripheral vascular occlusive disease Pneumonia Proteinuria due to type 2 diabetes mellitus Recurrent inguinal hernia of right side without obstruction or gangrene Restless legs Right pontine CVA Right renal artery stenosis Skin lesion of face SOB (shortness of breath) Type 2 diabetes mellitus Unsteadiness Ventricular tachycardia seen on satellite project site monitor (02/20/21) Home Medications multivitamin,[id number] (Complete Multivitamin tablet) 1 tab PO QDAY supplement 03/03/17 [History Last Taken 02/23/22] aspirin 81 mg chewable tablet 81 mg PO BREAKFAST heart health 01/02/21 [History Last Taken 02/24/22] Handicap Placard #1 ea 02/12/21 [Rx Last Taken Unknown] pen needle, diabetic 32 gauge x 32 (BD Sanaz 2nd Gen Pen Needle) #50 ea 06/02/21 [Rx Last Taken Unknown] carvedilol 25 mg tablet 25 mg PO BID heart 02/24/22 [History Last Taken 02/24/22] clopidogrel 75 mg tablet (Plavix) 75 mg PO DAILY blood thinner 02/24/22 [History Last Taken 02/23/22] doxazosin 8 mg tablet 8 mg PO QHS bph 02/24/22 [History Last Taken 02/23/22] ezetimibe 10 mg tablet (Zetia) 10 mg PO QHS cholesterol 02/24/22 [History Last Taken 02/23/22] latanoprost 0.005 % eye drops 1 drp EACH EYE HS eyes 02/24/22 [History Last Taken 02/23/22] pramipexole 0.125 mg tablet 0.125 mg PO QHS parkinsons 02/24/22 [History Last Taken 02/23/22] sertraline 50 mg tablet 50 mg PO QHS mood 02/24/22 [History Last Taken 02/24/22] sennosides 8.6 mg-docusate sodium 50 mg tablet (Stool Softener-Stimulant Laxative) 2 tab PO BID PRN PRN Constipation #0 tabs 02/27/22 [Rx Last Taken Unknown] acetaminophen 500 mg tablet 1,000 mg PO Q6H PRN PRN Pain Score 1-10 #0 tabs 03/09/22 [Rx Last Taken Unknown] insulin lispro 100 unit/mL subcutaneous pen (Humalog KwikPen (U-100) Insulin) 6 unit subcut TIDAC PRN diabetes 03/17/22 [History Last Taken Unknown] gabapentin 100 mg capsule 100 mg PO BID pain #180 caps 03/18/22 [Rx Last Taken Unknown] gabapentin 300 mg capsule 300 mg PO 2100 pain #90 caps 03/18/22 [Rx Last Taken Unknown] hydrochlorothiazide 25 mg tablet 25 mg PO DAILY diuretic 04/05/22 [History Last Taken Unknown] albuterol sulfate 2.5 mg/3 mL (0.083 %) solution for nebulization 2.5 mg (3 mL) inhalation Q2H PRN PRN Dyspnea, wheezing #0 mL 04/12/22 [Rx Last Taken Unknown] amlodipine 5 mg tablet 5 mg PO DAILY BP 04/12/22 [History Last Taken Unknown] ferrous sulfate 325 mg (65 mg iron) tablet (FeroSul) 325 mg PO QODAY Supplement 04/12/22 [History Last Taken Unknown] hydralazine 25 mg tablet 75 mg PO TID BP 04/12/22 [History Last Taken Unknown] insulin glargine-yfgn 100 unit/mL (3 mL) subcutaneous pen 18 unit (0.18 mL) subcut DAILY diabetes #15 mL 04/12/22 [Rx Last Taken Unknown] insulin lispro 100 unit/mL subcutaneous pen (Humalog KwikPen (U-100) Insulin) 6 unit (0.06 mL) subcut TIDAC #15 mL 04/12/22 [Rx Last Taken Unknown] insulin lispro 100 unit/mL subcutaneous pen (Humalog KwikPen (U-100) Insulin) See Protocol subcut ACHS Blood sugar 04/12/22 [History Last Taken Unknown] losartan 25 mg tablet 25 mg PO DAILY BP 04/12/22 [History Last Taken Unknown] polyethylene glycol 3350 17 gram oral powder packet 17 g PO DAILY Stool softner 04/12/22 [History Last Taken Unknown] spironolactone 50 mg tablet 50 mg PO DAILY Water retention 04/12/22 [History Last Taken Unknown] Allergy/AdvReac Type Severity Reaction Status Date / Time meloxicam [From Mobic] Allergy Intermediate itching Verified 04/05/22 12:08 pravastatin [From Pravachol] AdvReac Mild myalgia Verified 04/05/22 12:08 cholestyramine AdvReac hypoglycemi Verified 04/05/22 12:08 a Family History Mother Hypertension Cancer Father Heart disease Diabetes Surgical History History of cataract surgery History of herniorrhaphy History of lumbar laminectomy History of stent insertion of renal artery (08/05/21) Status post laser cataract surgery of left eye Social History household members: spouse and other details: Abigail is his 's name housing: house number of children: 2 current occupational status: retired and other details: worked for [employer] prior to retiring leisure activities: other Smoking Status: Never smoker Electronic Cigarette Use: not used alcohol intake: former substance use type: does not use what type of physical activity do you participate in: walking frequency: 1-2 times per week ROS Constitutional Constitutional: Denies chills, fever(s) or weight gain ENT HEENT: Denies headache(s), nasal congestion or nasal discharge Cardiovascular Cardiovascular: Denies chest pain or palpitations Respiratory/Chest Respiratory/Chest: Denies cough, excessive phlegm production or shortness of breath with exertion Gastrointestinal Gastrointestinal: Denies abdominal pain, nausea or vomiting Genitourinary Genitourinary: Denies dysuria Musculoskeletal Musculoskeletal: Denies joint pain or joint swelling Integumentary Integumentary: Denies rash or wounds Neurologic Neurologic: Denies focal weakness, numbness or tingling Psychiatric Psychiatric: Denies anxiety, auditory hallucinations, depression, homicidal ideation or suicidal ideation Vital Signs Vital Signs Vital Signs: 04/12/22 14:12 04/12/22 14:12 Pulse Rate 59 L Pulse Rhythm Regular Pulse Strength Normal (2+) Respiratory Rate 16 16 Respiratory Effort Normal Non-Labored Respiratory Depth Normal Respiratory Pattern Normal Blood Pressure 145/55 H Blood Pressure Mean 85 Blood Pressure Source Monitor Blood Pressure Position Supine Blood Pressure Location Right Arm Pulse Ox 96 96 Oxygen Delivery Method Room Air Nasal Cannula Oxygen Flow Rate (L/min) 3 Weight Weight: 82.282 kg Body Mass Index (BMI) 24.5 Physical Exam Const alert General Appearance: cooperative HEENT normocephalic Eyes PERRL and EOMs intact bilaterally Neck supple, no JVD and no carotid bruits Resp normal respiratory effort, normal air movement and clear to auscultation bilaterally Cardio regular rate and regular rhythm GI normal to inspection, nondistended, normoactive bowel sounds, non-tender and non-distended Extremity normal capillary refill General Extremity: Negative for edema Skin no rashes or lesions noted General Skin Exam: no breakdown Psych affect normal Appearance: appropriate Results Lab / Micro Data Labs: Laboratory Results - last 24 hr 04/12/22 16:25: POC Glucose 280 H Assessment & Plan Assessment/Plan (1) Debility: (2) Acute respiratory failure with hypoxia: (3) Acute on chronic diastolic congestive heart failure: (4) Acute kidney injury: (5) Pleural effusion, left: (6) Chronic kidney disease, stage 3b: (7) Hypertension: (8) Stroke: (9) BPH (benign prostatic hyperplasia): (10) Hyperlipidemia: (11) Iron deficiency anemia: (12) Diabetes mellitus: (13) Glaucoma: (14) Restless leg syndrome: (15) Depression: PLAN: Plan 81 year old male with below past medical history hospitalized for acute respiratory failure with hypoxia secondary to acute on chronic diastolic heart failure, complicated by acute kidney injury, iron deficiency anemia, left pleural effusion requiring thoracentesis, admitted to TCU with debility, here for rehabilitation, strengthening, prior to discharge home with . * Debility - PT/OT. * Pain - Tylenol 1000mg q6h prn pain (1-10). * Bowel - Miralax 17gm daily, senna/colace 2 tablets bid prn, Dulcolax 10mg pr daily prn. * Adult immunization - Administer pneumonia vaccine, covid19 vaccine, flu vaccine. * DVT prophylaxis - Hold, on dual antiplatelet therapy. * Shortness of breath - Albuterol 2.5mg neb q2h prn. * Hypertension - Coreg 25mg bidcm, Losartan 25mg daily, HCTZ 25mg daily, Amlodipine 5mg daily, Hydralazine 75mg tid. * Stroke - Plavix 75mg daily, Aspirin 81mg daily. * Chronic diastolic heart failure - Coreg 25mg bidcm, Losartan 25mg daily, Hydralazine 75mg tid, Aldactone 50mg daily. * BPH - Doxazosin 8mg qhs. * Hyperlipidemia - Zetia 10mg qhs. * Iron deficiency anemia - Ferrous sulfate 325mg every other day. * Neuropathic pain - Gabapentin 100mg bid, 300mg qhs. * Diabetes Mellitus II - Glargine 18 units daily, Lispro 6 units tidac. * Glaucoma - Latanoprost 0.005% 1gtt ou qhs. * Nutrition - MVI daily. * Restless Leg syndrome - Mirapaex 0.125mg qhs. * Depression - Sertraline 50mg qhs, stable chronic shelter use, GDR not recommended.
[2022-04-12 19:59] VITALS: BP 144/57; PULSE 62
[2022-04-12] MEDS: hydrALAZINE 25 MG Tablet 75 MG PO (19:59)
[2022-04-12] MEDS: Gabapentin 300 MG Capsule PO (20:01)
[2022-04-12] MEDS: Sertraline 50 MG Tablet PO (20:02)
[2022-04-12] MEDS: Doxazosin 4 MG Tablet 8 MG PO (20:02)
[2022-04-12] MEDS: Ezetimibe 10 MG Tablet PO (20:03)
[2022-04-12] MEDS: Latanoprost 0.005% 1 Bottle 1 DRP EACH EYE (20:03)
[2022-04-12] MEDS: Pramipexole Di-HCl 0.125 MG Tablet PO (20:03)
[2022-04-12 21:46] LABS: Bedside Glucose 189 mg/dL (74-106)
[2022-04-12 22:13] VITALS: PULSE 62; O2SAT 93
[2022-04-13 05:37] VITALS: BP 155/57; PULSE 57
[2022-04-13] MEDS: Gabapentin 100 MG Capsule PO ×2 (05:37→17:00)
[2022-04-13] MEDS: hydrALAZINE 25 MG Tablet 75 MG PO (05:37)
[2022-04-13] MEDS: Losartan Potassium 25 MG Tablet PO (05:38)
[2022-04-13] MEDS: hydroCHLOROthiazide 25 MG Tablet PO (05:38)
[2022-04-13] MEDS: Multivitamins,Ther W-Minerals Tablet 1 TABLET PO (05:38)
[2022-04-13] MEDS: amLODIPine 5 MG Tablet PO (05:38)
[2022-04-13] MEDS: Clopidogrel Bisulfate 75 MG Tablet PO (05:38)
[2022-04-13] MEDS: Spironolactone 50 MG Tablet PO (05:38)
[2022-04-13 05:41] LABS: Absolute Lymphocyte Count 1.39 X10^3/uL (0.83-4.51); Absolute Neutrophil Count 6.2 X10^3/uL (2.0-7.7); Basophil# 0.09 X10^3/uL; Eosinophil# 0.51 X10^3/uL; Eosinophils% 5.5 % (0-5); Hemoglobin 8.1 g/dL (13.0-16.5); Lymphocyte # 1.39 X10^3/ul (0.83-4.51); Lymphocyte % 14.9 % (19-41); Mean Corp Hgb Conc 31.2 g/dL (32-36); Mean Corpuscular Hgb 27.9 pg (27.0-32.0); Mean Corpuscular Volume 89.7 fL (80-94); Mean Platelet Vol. 10.2 fl (6.2-12.0); Monocyte# 1.11 X10^3/uL; Monocyte% 11.9 % (0-10); NRBC Flagged by Analyzer 0 % (0-5); Neutrophil % 66.2 % (47-70); Platelet Count 368 K/mm3 (150-450); RBC Distribution Width CV 14.6 % (11.6-14.6); RBC Distribution Width SD 46.9 fl (35.1-43.9); White Blood Count 9.4 K/mm3 (4.4-11.0)
[2022-04-13 06:08] LABS: Anion Gap 8 (5-15); BUN 50 mg/dL (7-18); BUN/Creat Ratio 28.6 RATIO (10-20); Calcium,Total 8.7 mg/dL (8.5-10.1); Chloride 103 mmol/L (98-107); Creatinine, Serum 1.75 mg/dL (0.70-1.30); EST Glomerular Filtration Rate 40 mL/min (>60); Est Glom Filt Rate - Afr Amer 48 mL/min (>60); Estimated Creatinine Clearance 35.72 ml/min; Glucose 148 mg/dL (74-106); Sodium Level 140 mmol/L (136-145)
[2022-04-13] MEDS: Insulin Glargine-YFGN 100 UNIT/ML Pen 18 UNIT SC (06:40)
[2022-04-13 06:46] LABS: Bedside Glucose 146 mg/dL (74-106)
[2022-04-13] MEDS: Carvedilol 25 MG Tablet PO ×2 (08:14→16:56)
[2022-04-13] MEDS: Aspirin 81 MG TAB.CHEW PO (08:14)
[2022-04-13] MEDS: Insulin Lispro 100 UNIT/ML INSULN.PEN 6 UNIT SC ×3 (08:15→16:55)
[2022-04-13] MEDS: Tuberculin,Purif.prot.deriv. 50 TU/ML Vial 0.1 ML ID (10:28)
[2022-04-13 11:35] LABS: Bedside Glucose 165 mg/dL (74-106)
--- NOTE | 2022-04-13 14:27 | PCM.PN.DRR ---
TCU RX Drug Regimen Review Subjective: TCU Admission. 81 YOM presented to the ER with shortness of breath. Hospitalized for acute respiratory failure with hypoxia secondary to acute on chronic diastolic heart failure, complicated by acute kidney injury, iron deficiency anemia, left pleural effusion requiring thoracentesis. Admitted to TCU with debility for strengthening and rehabilitation. Objective: Allergies meloxicam [From Mobic] Allergy (Intermediate, Verified 04/05/22 12:08) itching pravastatin [From Pravachol] Adverse Reaction (Mild, Verified 04/05/22 12:08) myalgia cholestyramine Adverse Reaction (Verified 04/05/22 12:08) hypoglycemia Current Medications Generic Name Dose Route Start Last Admin Trade Name Freq PRN Reason Stop Dose Admin Acetaminophen 1,000 mg 04/12/22 14:38 Acetaminophen 500 Mg Tablet PO Q6H PRN PRN Pain Score 1-10 Albuterol Sulfate 2.5 mg 04/12/22 14:38 Albuterol 2.5 Mg/3 Ml Vial.Neb. INHALATION Q2H PRN PRN Dyspnea, wheezing Amlodipine Besylate 5 mg 04/13/22 06:00 04/13/22 05:38 Amlodipine 5 Mg Tablet PO 5 mg DAILY LJ Administration Aspirin 81 mg 04/13/22 08:00 04/13/22 08:14 Aspirin 81 Mg Tab.Chew PO 81 mg BREAKFAST LJ Administration Bisacodyl 10 mg 04/12/22 14:52 Bisacodyl 10 Mg Suppository RC DAILY PRN CONSTIPATION Carvedilol 25 mg 04/12/22 17:00 04/13/22 08:14 Carvedilol 25 Mg Tablet PO 25 mg BIDCM LJ Administration Clopidogrel Bisulfate 75 mg 04/13/22 06:00 04/13/22 05:38 Clopidogrel Bisulfate 75 Mg Tablet PO 75 mg DAILY LJ Administration Doxazosin Mesylate 8 mg 04/12/22 22:00 04/12/22 20:02 Doxazosin 4 Mg Tablet PO 8 mg QHS LJ Administration Ezetimibe 10 mg 04/12/22 22:00 04/12/22 20:03 Ezetimibe 10 Mg Tablet PO 10 mg QHS LJ Administration Ferrous Sulfate 325 mg 04/14/22 10:00 Ferrous Sulfate 325 Mg Tablet PO QODAY LJ Gabapentin 100 mg 04/12/22 18:00 04/13/22 05:37 Gabapentin 100 Mg Capsule PO 100 mg BID LJ Administration Gabapentin 300 mg 04/12/22 21:00 04/12/22 20:01 Gabapentin 300 Mg Capsule PO 300 mg 2100 LJ Administration Hydralazine HCl 75 mg 04/13/22 22:00 Hydralazine 50 Mg Tablet PO TID LJ Hydrochlorothiazide 25 mg 04/13/22 06:00 04/13/22 05:38 Hydrochlorothiazide 25 Mg Tablet PO 25 mg DAILY LJ Administration Insulin Glargine 18 unit 04/13/22 06:00 04/13/22 06:40 Insulin Glargine-Yfgn 100 Unit/Ml Pen SC 18 unit DAILY LJ Administration Insulin Human Lispro 6 unit 04/13/22 06:45 04/13/22 13:12 Insulin Lispro 100 Unit/Ml Insuln.Pen SC 6 u TIDAC [facility] Administration Latanoprost 1 drp 04/12/22 22:00 04/12/22 20:03 Latanoprost 0.005% 1 Bottle EACH EYE 1 drp [facility] Administration Losartan Potassium 25 mg 04/13/22 06:00 04/13/22 05:38 Losartan Potassium 25 Mg Tablet PO 25 mg DAILY [facility] Administration Multivitamins/Minerals 1 tablet 04/13/22 06:00 04/13/22 05:38 Multivitamins,Ther W-Minerals Tablet PO 1 tablet DAILY [facility] Administration Polyethylene Glycol 17 gm 04/13/22 06:00 04/13/22 05:47 Polyethylene Glycol 3350 17 Gm Packet PO Not Given DAILY [facility] Pramipexole Dihydrochloride 0.125 mg 04/12/22 22:00 04/12/22 20:03 Pramipexole Di-Hcl 0.125 Mg Tablet PO 0.125 mg QHS [facility] Administration Senna/Docusate Sodium 2 tablet 04/12/22 14:38 Senna/Docusate Sodium 1 Tablet PO BID PRN PRN Constipation Sertraline HCl 50 mg 04/12/22 22:00 04/12/22 20:02 Sertraline 50 Mg Tablet PO 50 mg QHS [facility] Administration Sodium Chloride 10 - 40 ml 04/12/22 14:22 0.9% Saline Lock 10 Ml Syringe IV UD PRN SALINE FLUSH Spironolactone 50 mg 04/13/22 06:00 04/13/22 05:38 Spironolactone 50 Mg Tablet PO 50 mg DAILY LJ Administration Tuberculin PPD 0.1 ml 04/20/22 10:00 Tuberculin,Purif.Prot.Deriv. 50 Tu/Ml Vial ID 04/20/22 10:01 X1 ONE Problem List (Last Reviewed 04/12/22 @ 19:[address] Johnathan Huffman MD) Depression (Acute) Restless leg syndrome (Acute) Glaucoma (Acute) Diabetes mellitus (Acute) Iron deficiency anemia (Acute) Hyperlipidemia (Acute) BPH (benign prostatic hyperplasia) (Acute) Stroke (Acute) Hypertension (Chronic) Chronic kidney disease, stage 3b (Acute) Pleural effusion, left (Acute) Acute kidney injury (Acute) Acute on chronic diastolic congestive heart failure (Chronic) Acute respiratory failure with hypoxia (Acute) Debility (Acute) Vital Signs Pulse Resp BP Pulse Ox O2 Del Method O2 Flow Rate 57 L 16 155/57 H 93 Nasal Cannula 2 04/13/22 05:37 04/12/22 14:12 04/13/22 05:37 04/12/22 22:13 04/13/22 10:00 04/13/22 11:29 Oxygen Flow Rate (L/min) 2 Oxygen Delivery Method Nasal Cannula Weight: 81.556 kg Body Mass Index (BMI) 24.5 Sodium 140 mmol/L (136-145) 04/13/22 05:27 Potassium 4.0 mmol/L (3.5-5.1) 04/13/22 05:27 Chloride 103 mmol/L (98-107) 04/13/22 05:27 Carbon Dioxide 29.0 mmol/L (21.0-32.0) 04/13/22 05:27 Anion Gap 8 (5-15) 04/13/22 05:27 BUN 50 mg/dL (7-18) H 04/13/22 05:27 Creatinine 1.75 mg/dL (0.70-1.30) H 04/13/22 05:27 Est GFR (MDRD) Af Amer 48 mL/min (>60) L 04/13/22 05:27 Est GFR (MDRD) Non-Af 40 mL/min (>60) L 04/13/22 05:27 BUN/Creatinine Ratio 28.6 RATIO (10-20) H 04/13/22 05:27 Glucose 148 mg/dL (74-106) H 04/13/22 05:27 Assessment/Plan: 1. Pain: acetaminophen 1000mg PO Q6H PRN pain 1-10. Please continue to monitor for increased pain and PRN usage. Resident has not used any doses so far. 2. Bowel: Miralax 17gm PO daily, senna/docusate 2T PO BID PRN constipation and bisacodyl 10mg RC daily PRN constipation. Resident has not had any doses so far. Please continue to monitor for constipation and PRN usage. Last documented bowel movement 04/09. 3. Hypertension/CHF: carvedilol 25mg PO BIDCM, losartan 25mg PO daily, hydrochlorothiazide 25mg PO daily, amlodipine 5mg PO daily, hydralazine 75mg PO TID, spironolactone 50mg PO daily. Please continue to monitor BP (last 155/57), HR (last 57), potassium (last 4 mmol/L), renal function, swelling, sodium (last 140mmol/L), facial flushing. 4. Stroke: clopidogrel 75mg PO daily and aspirin 81mg PO breakfast. Please continue to monitor for S/S of bleeding/stroke and hemoglobin (last 8.1g/dL). 5. Hyperlipidemia: ezetimibe 10mg PO QHS. Please continue to monitor lipid panel (last 04/22/21). 6. Iron deficiency anemia: ferrous sulfate 325mg PO every other day. Please continue to monitor for constipation, dark stools and hemoglobin (last 8.1g/dL). 7. Shortness of breath: albuterol nebulized solution 2.5mg inhalation Q2H PRN dyspnea,wheezing. No doses needed so far. Please continue to monitor for PRN usage, SOB and dyspnea. 8. BPH: doxazosin 8mg PO QHS. Please continue to monitor BP and S/S of BPH. 9. Diabetes Mellitus II: insulin glargine 18units SC daily and insulin lispro 6units TIDAC. Please continue to monitor hemoglobin A1c (Last 6.4% 01/06/22), glucose (last 165mg/dL) and S/S of hypoglycemia. 10. Glaucoma: latanoprost 0.005% 1gtt OU QHS. Please continue to monitor for S/S of glaucoma and dry eyes. 11. Restless leg syndrome: pramipexole 0.125mg PO QHS. Please continue to monitor for S/S of restless legs. 12. Nutrition: multivitamin with minerals 1T PO daily. Please continue to monitor. Assessment/Plan for indications treated with psychotropic medications: 1. Depression: sertraline 50mg PO QHS. Please see physician note regarding GDR. Please continue to monitor for suicidal ideation (black box warning), falls/fractures (BEERs criteria medication), sodium, and GI side effects. 2. Neuropathic pain: gabapentin 100mg PO BID and 300mg QHS. GDR not appropriate as this resident is using for neuropathic pain. Please continue to monitor for falls/fractures (BEERs medication), renal function and confusion. Medical chart and medication regimen reviewed. The following medication irregularities or issues were identified: None Date of Note:: 04/13/22
[2022-04-13 14:52] VITALS: O2SAT 98
[2022-04-13 15:26] VITALS: BP 127/55; PULSE 48; RESP 16; TEMP 36.5; O2SAT 98
[2022-04-13 15:58] VITALS: O2SAT 99
[2022-04-13 16:35] LABS: Bedside Glucose 180 mg/dL (74-106)
[2022-04-13] MEDS: Gabapentin 300 MG Capsule PO (20:58)
[2022-04-13 20:59] VITALS: BP 137/51; PULSE 61
[2022-04-13] MEDS: hydrALAZINE 50 MG Tablet 75 MG PO (20:59)
[2022-04-13] MEDS: Doxazosin 4 MG Tablet 8 MG PO (21:00)
[2022-04-13] MEDS: Pramipexole Di-HCl 0.125 MG Tablet PO (21:01)
[2022-04-13] MEDS: Latanoprost 0.005% 1 Bottle 1 DRP EACH EYE (21:01)
[2022-04-13] MEDS: Ezetimibe 10 MG Tablet PO (21:02)
[2022-04-13] MEDS: Sertraline 50 MG Tablet PO (21:02)
[2022-04-13 23:30] LABS: Bedside Glucose 181 mg/dL (74-106)
[2022-04-14] VITALS (9 sets, daily range): BP systolic 126–148; BP diastolic 46–62; PULSE 49–61; RESP 16; TEMP 36.1; O2SAT 97
[2022-04-14] MEDS: Gabapentin 100 MG Capsule PO ×2 (06:08→18:01)
[2022-04-14] MEDS: hydrALAZINE 50 MG Tablet 75 MG PO ×3 (06:09→20:47)
[2022-04-14] MEDS: Spironolactone 50 MG Tablet PO (06:09)
[2022-04-14] MEDS: amLODIPine 5 MG Tablet PO (06:12)
[2022-04-14] MEDS: Losartan Potassium 25 MG Tablet PO (06:13)
[2022-04-14] MEDS: Multivitamins,Ther W-Minerals Tablet 1 TABLET PO (06:13)
[2022-04-14] MEDS: Clopidogrel Bisulfate 75 MG Tablet PO (06:13)
[2022-04-14] MEDS: hydroCHLOROthiazide 25 MG Tablet PO (06:39)
[2022-04-14 06:51] LABS: Bedside Glucose 134 mg/dL (74-106)
[2022-04-14] MEDS: Aspirin 81 MG TAB.CHEW PO (08:16)
[2022-04-14] MEDS: Insulin Lispro 100 UNIT/ML INSULN.PEN 6 UNIT SC ×3 (08:16→18:02)
[2022-04-14] MEDS: Insulin Glargine-YFGN 100 UNIT/ML Pen 18 UNIT SC (10:18)
[2022-04-14 11:40] LABS: Bedside Glucose 184 mg/dL (74-106)
[2022-04-14] MEDS: Ferrous Sulfate 325 MG Tablet PO (12:00)
[2022-04-14 17:40] LABS: Bedside Glucose 102 mg/dL (74-106)
[2022-04-14] MEDS: Carvedilol 25 MG Tablet PO (17:59)
[2022-04-14] MEDS: Gabapentin 300 MG Capsule PO (20:46)
[2022-04-14] MEDS: Doxazosin 4 MG Tablet 8 MG PO (20:47)
[2022-04-14] MEDS: Sertraline 50 MG Tablet PO (20:48)
[2022-04-14] MEDS: Pramipexole Di-HCl 0.125 MG Tablet PO (20:48)
[2022-04-14] MEDS: Ezetimibe 10 MG Tablet PO (20:48)
[2022-04-14] MEDS: Latanoprost 0.005% 1 Bottle 1 DRP EACH EYE (21:09)
[2022-04-14 21:55] LABS: Bedside Glucose 126 mg/dL (74-106)
[2022-04-15] VITALS (8 sets, daily range): BP systolic 122–146; BP diastolic 41–68; PULSE 48–62; RESP 16; TEMP 36.5; O2SAT 96–97
[2022-04-15] MEDS: Polyethylene Glycol 3350 17 GM PACKET PO (06:01)
[2022-04-15] MEDS: hydrALAZINE 50 MG Tablet 75 MG PO ×3 (06:01→22:09)
[2022-04-15] MEDS: Losartan Potassium 25 MG Tablet PO (06:02)
[2022-04-15] MEDS: Clopidogrel Bisulfate 75 MG Tablet PO (06:02)
[2022-04-15] MEDS: amLODIPine 5 MG Tablet PO (06:02)
[2022-04-15] MEDS: hydroCHLOROthiazide 25 MG Tablet PO (06:02)
[2022-04-15] MEDS: Spironolactone 50 MG Tablet PO (06:02)
[2022-04-15] MEDS: 0.9% Saline Lock 10 ML Syringe IV (06:10)
[2022-04-15 06:50] LABS: Bedside Glucose 127 mg/dL (74-106)
[2022-04-15] MEDS: Insulin Glargine-YFGN 100 UNIT/ML Pen 18 UNIT SC (07:02)
[2022-04-15] MEDS: Gabapentin 100 MG Capsule PO ×2 (08:18→17:57)
[2022-04-15] MEDS: Insulin Lispro 100 UNIT/ML INSULN.PEN 6 UNIT SC ×2 (08:18→17:53)
[2022-04-15] MEDS: Carvedilol 25 MG Tablet PO (08:18)
[2022-04-15] MEDS: Aspirin 81 MG TAB.CHEW PO (08:18)
[2022-04-15] MEDS: Multivitamins,Ther W-Minerals Tablet 1 TABLET PO (08:18)
[2022-04-15 11:41] LABS: Bedside Glucose 107 mg/dL (74-106)
[2022-04-15 18:01] LABS: Bedside Glucose 171 mg/dL (74-106)
[2022-04-15 22:01] LABS: Bedside Glucose 133 mg/dL (74-106)
[2022-04-15] MEDS: Gabapentin 300 MG Capsule PO (22:07)
[2022-04-15] MEDS: Doxazosin 4 MG Tablet 8 MG PO (22:08)
[2022-04-15] MEDS: Pramipexole Di-HCl 0.125 MG Tablet PO (22:09)
[2022-04-15] MEDS: Ezetimibe 10 MG Tablet PO (22:09)
[2022-04-15] MEDS: Sertraline 50 MG Tablet PO (22:09)
[2022-04-15] MEDS: Latanoprost 0.005% 1 Bottle 1 DRP EACH EYE (22:13)
[2022-04-16] VITALS (7 sets, daily range): BP systolic 116–157; BP diastolic 38–60; PULSE 48–60; RESP 16; TEMP 36.8; O2SAT 96–97
[2022-04-16] MEDS: hydroCHLOROthiazide 25 MG Tablet PO (05:15)
[2022-04-16] MEDS: Losartan Potassium 25 MG Tablet PO (05:15)
[2022-04-16] MEDS: Clopidogrel Bisulfate 75 MG Tablet PO (05:15)
[2022-04-16] MEDS: amLODIPine 5 MG Tablet PO (05:15)
[2022-04-16] MEDS: Polyethylene Glycol 3350 17 GM PACKET PO (05:15)
[2022-04-16] MEDS: Spironolactone 50 MG Tablet PO (05:15)
[2022-04-16] MEDS: hydrALAZINE 50 MG Tablet 75 MG PO ×3 (05:18→22:14)
[2022-04-16] MEDS: Insulin Glargine-YFGN 100 UNIT/ML Pen 18 UNIT SC (06:38)
[2022-04-16 06:55] LABS: Bedside Glucose 128 mg/dL (74-106)
[2022-04-16] MEDS: Insulin Lispro 100 UNIT/ML INSULN.PEN 6 UNIT SC ×3 (08:07→17:43)
[2022-04-16] MEDS: Multivitamins,Ther W-Minerals Tablet 1 TABLET PO (08:08)
[2022-04-16] MEDS: Ferrous Sulfate 325 MG Tablet PO (08:08)
[2022-04-16] MEDS: Carvedilol 25 MG Tablet PO ×2 (08:08→17:44)
[2022-04-16] MEDS: Aspirin 81 MG TAB.CHEW PO (08:08)
[2022-04-16] MEDS: Gabapentin 100 MG Capsule PO ×2 (08:09→17:44)
[2022-04-16 10:36] LABS: Bedside Glucose 244 mg/dL (74-106)
--- NOTE | 2022-04-16 13:21 | CASEMGMT ---
Social Work BIMS () and PHQ-9 () completed for MDS assessment. Updated pt insurance NRD 04/21. Dtr present. Tiffanie Meyers, ASSOCIATE [employer]UDENTS TRACTOR TRAILER MOVING VAN DRIVER
[2022-04-16] MEDS: 0.9% Saline Lock 10 ML Syringe IV (13:23)
[2022-04-16 16:25] LABS: Bedside Glucose 164 mg/dL (74-106)
[2022-04-16 21:20] LABS: Bedside Glucose 193 mg/dL (74-106)
[2022-04-16] MEDS: Gabapentin 300 MG Capsule PO (22:13)
[2022-04-16] MEDS: Ezetimibe 10 MG Tablet PO (22:13)
[2022-04-16] MEDS: Pramipexole Di-HCl 0.125 MG Tablet PO (22:14)
[2022-04-16] MEDS: Sertraline 50 MG Tablet PO (22:15)
[2022-04-16] MEDS: Latanoprost 0.005% 1 Bottle 1 DRP EACH EYE (22:15)
[2022-04-16] MEDS: Doxazosin 4 MG Tablet 8 MG PO (22:15)
[2022-04-17] MEDS: 0.9% Saline Lock 10 ML Syringe IV ×2 (06:02→14:39)
[2022-04-17 06:04] VITALS: BP 142/52; PULSE 56
[2022-04-17] MEDS: amLODIPine 5 MG Tablet PO (06:04)
[2022-04-17] MEDS: hydroCHLOROthiazide 25 MG Tablet PO (06:04)
[2022-04-17] MEDS: Losartan Potassium 25 MG Tablet PO (06:04)
[2022-04-17] MEDS: hydrALAZINE 50 MG Tablet 75 MG PO ×3 (06:04→20:43)
[2022-04-17] MEDS: Insulin Glargine-YFGN 100 UNIT/ML Pen 18 UNIT SC (06:06)
[2022-04-17] MEDS: Clopidogrel Bisulfate 75 MG Tablet PO (06:06)
[2022-04-17] MEDS: Spironolactone 50 MG Tablet PO (06:06)
[2022-04-17 06:30] LABS: Bedside Glucose 131 mg/dL (74-106)
[2022-04-17] MEDS: Aspirin 81 MG TAB.CHEW PO (08:16)
[2022-04-17] MEDS: Insulin Lispro 100 UNIT/ML INSULN.PEN 6 UNIT SC ×3 (08:16→17:49)
[2022-04-17] MEDS: Multivitamins,Ther W-Minerals Tablet 1 TABLET PO (08:16)
[2022-04-17] MEDS: Gabapentin 100 MG Capsule PO ×2 (08:16→17:49)
[2022-04-17] MEDS: Carvedilol 25 MG Tablet PO ×2 (08:16→17:49)
[2022-04-17 08:26] VITALS: BP 146/52; PULSE 51
[2022-04-17 11:35] LABS: Bedside Glucose 149 mg/dL (74-106)
[2022-04-17 14:38] VITALS: BP 137/51; PULSE 51
[2022-04-17 15:39] VITALS: BP 147/65; PULSE 53; RESP 18; TEMP 36.6; O2SAT 93
[2022-04-17 16:50] LABS: Bedside Glucose 143 mg/dL (74-106)
[2022-04-17 17:53] VITALS: BP 161/54; PULSE 54
[2022-04-17] MEDS: Gabapentin 300 MG Capsule PO (20:41)
[2022-04-17 20:43] VITALS: BP 143/56; PULSE 56
[2022-04-17] MEDS: Sertraline 50 MG Tablet PO (20:44)
[2022-04-17] MEDS: Pramipexole Di-HCl 0.125 MG Tablet PO (20:44)
[2022-04-17] MEDS: Doxazosin 4 MG Tablet 8 MG PO (20:45)
[2022-04-17] MEDS: Ezetimibe 10 MG Tablet PO (20:45)
[2022-04-17] MEDS: Latanoprost 0.005% 1 Bottle 1 DRP EACH EYE (20:46)
[2022-04-17 21:20] LABS: Bedside Glucose 179 mg/dL (74-106)
[2022-04-18] MEDS: Polyethylene Glycol 3350 17 GM PACKET PO (05:20)
[2022-04-18 05:21] VITALS: BP 128/53; PULSE 52
[2022-04-18] MEDS: hydrALAZINE 50 MG Tablet 75 MG PO ×3 (05:21→22:18)
[2022-04-18] MEDS: hydroCHLOROthiazide 25 MG Tablet PO (05:22)
[2022-04-18] MEDS: amLODIPine 5 MG Tablet PO (05:22)
[2022-04-18] MEDS: Clopidogrel Bisulfate 75 MG Tablet PO (05:22)
[2022-04-18] MEDS: Losartan Potassium 25 MG Tablet PO (05:22)
[2022-04-18] MEDS: Spironolactone 50 MG Tablet PO (05:23)
[2022-04-18] MEDS: 0.9% Saline Lock 10 ML Syringe IV (05:29)
[2022-04-18 06:31] LABS: Bedside Glucose 137 mg/dL (74-106)
[2022-04-18] MEDS: Insulin Glargine-YFGN 100 UNIT/ML Pen 18 UNIT SC (06:52)
[2022-04-18] MEDS: Carvedilol 25 MG Tablet PO ×2 (08:32→17:47)
[2022-04-18] MEDS: Aspirin 81 MG TAB.CHEW PO (08:32)
[2022-04-18] MEDS: Multivitamins,Ther W-Minerals Tablet 1 TABLET PO (08:33)
[2022-04-18] MEDS: Gabapentin 100 MG Capsule PO ×3 (08:33→22:16)
[2022-04-18] MEDS: Insulin Lispro 100 UNIT/ML INSULN.PEN 6 UNIT SC ×3 (08:35→17:47)
[2022-04-18] MEDS: Ferrous Sulfate 325 MG Tablet PO (11:17)
[2022-04-18 11:45] LABS: Bedside Glucose 153 mg/dL (74-106)
[2022-04-18 12:58] VITALS: BP 138/49; PULSE 49
[2022-04-18 15:28] VITALS: BP 145/50; PULSE 50; RESP 16; TEMP 36.6; O2SAT 94
[2022-04-18 16:21] LABS: Bedside Glucose 135 mg/dL (74-106)
[2022-04-18 21:36] LABS: Bedside Glucose 200 mg/dL (74-106)
[2022-04-18 22:18] VITALS: BP 145/65; PULSE 56
[2022-04-18] MEDS: Ezetimibe 10 MG Tablet PO (22:19)
[2022-04-18] MEDS: Doxazosin 4 MG Tablet 8 MG PO (22:19)
[2022-04-18] MEDS: Latanoprost 0.005% 1 Bottle 1 DRP EACH EYE (22:21)
[2022-04-18] MEDS: Pramipexole Di-HCl 0.125 MG Tablet PO (22:21)
[2022-04-18] MEDS: Gabapentin 300 MG Capsule PO (22:25)
[2022-04-18] MEDS: Sertraline 50 MG Tablet PO (22:58)
[2022-04-19] VITALS (7 sets, daily range): BP systolic 121–154; BP diastolic 46–56; PULSE 50–61; RESP 16; TEMP 36.6; O2SAT 92–93
[2022-04-19] MEDS: Polyethylene Glycol 3350 17 GM PACKET PO (05:58)
[2022-04-19] MEDS: amLODIPine 5 MG Tablet PO (06:00)
[2022-04-19] MEDS: Clopidogrel Bisulfate 75 MG Tablet PO (06:00)
[2022-04-19] MEDS: hydrALAZINE 50 MG Tablet 75 MG PO ×3 (06:00→20:57)
[2022-04-19] MEDS: Losartan Potassium 25 MG Tablet PO (06:01)
[2022-04-19] MEDS: Spironolactone 50 MG Tablet PO (06:01)
[2022-04-19] MEDS: hydroCHLOROthiazide 25 MG Tablet PO (06:01)
[2022-04-19 06:40] LABS: Bedside Glucose 127 mg/dL (74-106)
[2022-04-19] MEDS: Multivitamins,Ther W-Minerals Tablet 1 TABLET PO (07:54)
[2022-04-19] MEDS: Insulin Glargine-YFGN 100 UNIT/ML Pen 18 UNIT SC (07:54)
[2022-04-19] MEDS: Aspirin 81 MG TAB.CHEW PO (07:54)
[2022-04-19] MEDS: Carvedilol 25 MG Tablet PO ×2 (07:54→17:23)
[2022-04-19] MEDS: Insulin Lispro 100 UNIT/ML INSULN.PEN 6 UNIT SC ×3 (07:54→17:50)
--- NOTE | 2022-04-19 08:53 | NURSING ---
Warp Trucker Note; MDS Complete
[2022-04-19 09:54] LABS: Absolute Neutrophil Count 6.2 X10^3/uL (2.0-7.7); Basophil# 0.08 X10^3/uL; Basophil% 0.9 % (0-1); Eosinophil# 0.69 X10^3/uL; Eosinophils% 7.6 % (0-5); Hematocrit 29.4 % (40-54); Lymphocyte % 12.2 % (19-41); Mean Corp Hgb Conc 30.6 g/dL (32-36); Mean Corpuscular Hgb 27.9 pg (27.0-32.0); Mean Platelet Vol. 10.6 fl (6.2-12.0); NRBC Flagged by Analyzer 0 % (0-5); Neutrophil # 6.21 X10^3/uL (2.7-7.7); Neutrophil % 68.7 % (47-70); Platelet Count 371 K/mm3 (150-450); RBC Distribution Width CV 14.7 % (11.6-14.6); Red Blood Count 3.23 M/mm3 (4.6-6.2)
[2022-04-19 10:04] LABS: Anion Gap 7 (5-15); BUN 47 mg/dL (7-18); BUN/Creat Ratio 21.8 RATIO (10-20); Calcium,Total 9.2 mg/dL (8.5-10.1); Chloride 102 mmol/L (98-107); Creatinine, Serum 2.16 mg/dL (0.70-1.30); EST Glomerular Filtration Rate 31 mL/min (>60); Est Glom Filt Rate - Afr Amer 38 mL/min (>60); Estimated Creatinine Clearance 28.94 ml/min; Glucose 200 mg/dL (74-106); Potassium 4.7 mmol/L (3.5-5.1); Sodium Level 137 mmol/L (136-145)
[2022-04-19 10:13] LABS: BNP,B-Type NATRIURETIC PEPTIDE 96.9 pg/mL (0-100)
[2022-04-19] MEDS: Senna/Docusate Sodium 1 Tablet 2 TABLET PO (10:30)
[2022-04-19 11:45] LABS: Bedside Glucose 158 mg/dL (74-106)
[2022-04-19] MEDS: 0.9% Saline Lock 10 ML Syringe IV (13:49)
[2022-04-19] MEDS: Gabapentin 100 MG Capsule PO (17:23)
[2022-04-19 17:46] LABS: Bedside Glucose 119 mg/dL (74-106)
[2022-04-19] MEDS: Gabapentin 300 MG Capsule PO ×2 (20:51→20:57)
[2022-04-19] MEDS: Pramipexole Di-HCl 0.125 MG Tablet PO (20:58)
[2022-04-19] MEDS: Ezetimibe 10 MG Tablet PO (20:59)
[2022-04-19] MEDS: Doxazosin 4 MG Tablet 8 MG PO (20:59)
[2022-04-19] MEDS: Sertraline 50 MG Tablet PO (20:59)
[2022-04-19] MEDS: Latanoprost 0.005% 1 Bottle 1 DRP EACH EYE (21:00)
[2022-04-19 21:40] LABS: Bedside Glucose 191 mg/dL (74-106)
[2022-04-20] VITALS (7 sets, daily range): BP systolic 137–154; BP diastolic 54–89; PULSE 52–60; RESP 16; TEMP 36.5; O2SAT 93–94
--- NOTE | 2022-04-20 05:27 | PCA ---
pt called and asked to be put back to bed when he had never called to be out of bed. pt had self transferred to bathroom and back to bed by himself and needed help getting legs into bed. when Physician Relations Representative went in there he asked us not to tell his as she is the boss.
[2022-04-20 06:01] LABS: Absolute Lymphocyte Count 1.76 X10^3/uL (0.83-4.51); Absolute Neutrophil Count 5.4 X10^3/uL (2.0-7.7); Basophil% 1.1 % (0-1); Eosinophil# 0.81 X10^3/uL; Eosinophils% 8.8 % (0-5); Hematocrit 28.6 % (40-54); Hemoglobin 8.9 g/dL (13.0-16.5); Lymphocyte # 1.76 X10^3/ul (0.83-4.51); Lymphocyte % 19.2 % (19-41); Mean Corp Hgb Conc 31.1 g/dL (32-36); Mean Corpuscular Hgb 27.8 pg (27.0-32.0); Mean Corpuscular Volume 89.4 fL (80-94); Mean Platelet Vol. 10.8 fl (6.2-12.0); Monocyte# 1.02 X10^3/uL; Monocyte% 11.1 % (0-10); NRBC Flagged by Analyzer 0 % (0-5); Neutrophil # 5.43 X10^3/uL (2.7-7.7); Neutrophil % 59.4 % (47-70); Platelet Count 368 K/mm3 (150-450); RBC Distribution Width CV 14.7 % (11.6-14.6); RBC Distribution Width SD 47.9 fl (35.1-43.9); White Blood Count 9.2 K/mm3 (4.4-11.0)
[2022-04-20] MEDS: hydroCHLOROthiazide 25 MG Tablet PO (06:01)
[2022-04-20] MEDS: Spironolactone 50 MG Tablet PO (06:01)
[2022-04-20] MEDS: Clopidogrel Bisulfate 75 MG Tablet PO (06:01)
[2022-04-20] MEDS: hydrALAZINE 50 MG Tablet 75 MG PO ×3 (06:01→20:50)
[2022-04-20] MEDS: amLODIPine 5 MG Tablet PO (06:01)
[2022-04-20] MEDS: Losartan Potassium 25 MG Tablet PO (06:01)
[2022-04-20] MEDS: Polyethylene Glycol 3350 17 GM PACKET PO (06:03)
[2022-04-20] MEDS: Bisacodyl 10 MG Suppository RC (06:08)
[2022-04-20 06:23] LABS: Anion Gap 9 (5-15); BUN 51 mg/dL (7-18); BUN/Creat Ratio 23.9 RATIO (10-20); Chloride 103 mmol/L (98-107); Creatinine, Serum 2.13 mg/dL (0.70-1.30); EST Glomerular Filtration Rate 32 mL/min (>60); Est Glom Filt Rate - Afr Amer 38 mL/min (>60); Estimated Creatinine Clearance 29.35 ml/min; Glucose 119 mg/dL (74-106); Potassium 4.8 mmol/L (3.5-5.1); Sodium Level 138 mmol/L (136-145)
[2022-04-20] MEDS: Insulin Glargine-YFGN 100 UNIT/ML Pen 18 UNIT SC (06:40)
--- NOTE | 2022-04-20 06:47 | NURSING ---
No BM this shift, approx 6am prn suppository given per order
[2022-04-20 06:56] LABS: Bedside Glucose 122 mg/dL (74-106)
[2022-04-20] MEDS: Carvedilol 25 MG Tablet PO ×2 (08:05→17:10)
[2022-04-20] MEDS: Aspirin 81 MG TAB.CHEW PO (08:05)
[2022-04-20] MEDS: Insulin Lispro 100 UNIT/ML INSULN.PEN 6 UNIT SC ×3 (08:05→18:22)
[2022-04-20] MEDS: Gabapentin 100 MG Capsule PO ×2 (08:05→17:10)
[2022-04-20] MEDS: Multivitamins,Ther W-Minerals Tablet 1 TABLET PO (08:05)
--- NOTE | 2022-04-20 10:46 | NURSING ---
Patient refused to get the covid booster while here and education pamphlet provided to patient.
[2022-04-20] MEDS: Tuberculin,Purif.prot.deriv. 50 TU/ML Vial 0.1 ML ID (11:19)
[2022-04-20] MEDS: Ferrous Sulfate 325 MG Tablet PO (11:20)
[2022-04-20 11:50] LABS: Bedside Glucose 106 mg/dL (74-106)
--- NOTE | 2022-04-20 13:02 | NURSING ---
Patient off unit accompanied by to attend stroke support group.
[2022-04-20 17:40] LABS: Bedside Glucose 123 mg/dL (74-106)
--- NOTE | 2022-04-20 19:05 | NURSING ---
Patient to surgery followup today, no new orders.
[2022-04-20] MEDS: Ezetimibe 10 MG Tablet PO (20:48)
[2022-04-20] MEDS: Sertraline 50 MG Tablet PO (20:48)
[2022-04-20] MEDS: Doxazosin 4 MG Tablet 8 MG PO (20:48)
[2022-04-20] MEDS: Pramipexole Di-HCl 0.125 MG Tablet PO (20:48)
[2022-04-20] MEDS: Latanoprost 0.005% 1 Bottle 1 DRP EACH EYE (20:49)
[2022-04-20 22:01] LABS: Bedside Glucose 178 mg/dL (74-106)
[2022-04-21] VITALS (7 sets, daily range): BP systolic 117–159; BP diastolic 50–61; PULSE 47–56; RESP 16–18; TEMP 37.2; O2SAT 94–96
[2022-04-21] MEDS: Polyethylene Glycol 3350 17 GM PACKET PO (04:43)
[2022-04-21] MEDS: Spironolactone 50 MG Tablet PO (04:44)
[2022-04-21] MEDS: Clopidogrel Bisulfate 75 MG Tablet PO (04:44)
[2022-04-21] MEDS: amLODIPine 5 MG Tablet PO (04:44)
[2022-04-21] MEDS: Losartan Potassium 25 MG Tablet PO (04:44)
[2022-04-21] MEDS: hydroCHLOROthiazide 25 MG Tablet PO (04:44)
[2022-04-21] MEDS: hydrALAZINE 50 MG Tablet 75 MG PO ×3 (04:46→21:50)
[2022-04-21] MEDS: Insulin Glargine-YFGN 100 UNIT/ML Pen 18 UNIT SC (06:32)
[2022-04-21 06:34] LABS: Anion Gap 7 (5-15); BUN 54 mg/dL (7-18); BUN/Creat Ratio 26.1 RATIO (10-20); Calcium,Total 9.1 mg/dL (8.5-10.1); Chloride 103 mmol/L (98-107); Creatinine, Serum 2.07 mg/dL (0.70-1.30); EST Glomerular Filtration Rate 33 mL/min (>60); Est Glom Filt Rate - Afr Amer 40 mL/min (>60); Glucose 134 mg/dL (74-106); Potassium 4.6 mmol/L (3.5-5.1); Sodium Level 137 mmol/L (136-145)
[2022-04-21 06:45] LABS: Bedside Glucose 135 mg/dL (74-106)
[2022-04-21] MEDS: Insulin Lispro 100 UNIT/ML INSULN.PEN 6 UNIT SC ×3 (08:21→17:58)
[2022-04-21] MEDS: Aspirin 81 MG TAB.CHEW PO (08:21)
[2022-04-21] MEDS: Carvedilol 25 MG Tablet PO ×2 (08:21→17:59)
[2022-04-21] MEDS: Multivitamins,Ther W-Minerals Tablet 1 TABLET PO (08:21)
[2022-04-21] MEDS: Gabapentin 100 MG Capsule PO ×2 (08:24→17:58)
--- NOTE | 2022-04-21 10:12 | CASEMGMT ---
Addendum entered by Tiffanie Meyers 04/21/22 11:40: Palliative meeting scheduled with pt and family for 04/22 at 1500 Original Note: Social Work IDT met with patient, , dtr and DIL for care plan meeting. Discussed patient's progress in PT/OT/ST/SN. Educated to [facility] insurance with NRD 04/21 and continued stay is not guaranteed with each review. Inquired about DC plans. and pt plan for pt to return home. SW educated to Palliative and CCN for services if needed at home, and pt can restart [facility] PT/OT/ST at DC. agreeable to Palliative and CCN. SW offered for palliative to meet with family prior to DC. agreeable. Referral made via email to [facility] Palliative. SW to refer to CCN at [place]. SW to continue to follow. Tiffanie Meyers, CONCHA TEJEDAW
[2022-04-21 11:35] LABS: Bedside Glucose 128 mg/dL (74-106)
--- NOTE | 2022-04-21 15:30 | CASEMGMT ---
Social Work - TCU NRD with insurance, today 04.21.22. Insurance issueD [facility] with last covered day 04.23.22. Discharge date would be 04.24.22. Met with patient and introduced to self and role. Patient familiar with this production underwriter from [facility] Stroke Support Group. Reviewed insurance cut date, discharge date, and right to appeal this timeframe if patient does not feel he is is ready for discharge. Reviewed form and offered patient opportunity to ask questions. Patient reports to be familiar with the form and right to appeal as reports to have appealed a prior stay's discharge sometime in the past. Patient states we lost. Educated patient it is the patient's right to appeal insurance decision again if chooses to do so. Educated patient that if patient does choose to appeal, important to also notify social sciences chair of decision. Patient agreeable. Patient states to think I'm ready for discharge but does plan to review with Abigail sharma at visit. Asked patient if would like SW to come back on 04.22.22 to confirm patient's plan. Patient stated this would be agreeable. This production underwriter assisted patient getting some things from this bedside drawer and a cup of coffee upon request (verified with nursing coffee was okay). Patient thanked this production underwriter for the good news today. Plan: Home with assist, palliative consult on 04.22.22, CCN referral, and outpatient therapy at [facility]. SW will see patient again on 04.22.22 to confirm patient's plan to move forward with planned discharge/cut dates. -PEEWEE Byrd MSW
[2022-04-21 18:06] LABS: Bedside Glucose 151 mg/dL (74-106)
[2022-04-21] MEDS: Gabapentin 300 MG Capsule PO (21:53)
[2022-04-21] MEDS: Doxazosin 4 MG Tablet 8 MG PO (21:53)
[2022-04-21] MEDS: Sertraline 50 MG Tablet PO (21:54)
[2022-04-21] MEDS: Pramipexole Di-HCl 0.125 MG Tablet PO (21:54)
[2022-04-21] MEDS: Ezetimibe 10 MG Tablet PO (21:54)
[2022-04-21] MEDS: Latanoprost 0.005% 1 Bottle 1 DRP EACH EYE (21:55)
[2022-04-21 22:15] LABS: Bedside Glucose 153 mg/dL (74-106)
[2022-04-22 06:26] LABS: Anion Gap 6 (5-15); BUN 62 mg/dL (7-18); BUN/Creat Ratio 28.2 RATIO (10-20); Chloride 104 mmol/L (98-107); EST Glomerular Filtration Rate 31 mL/min (>60); Est Glom Filt Rate - Afr Amer 37 mL/min (>60); Estimated Creatinine Clearance 28.41 ml/min; Glucose 113 mg/dL (74-106); Potassium 4.4 mmol/L (3.5-5.1); Sodium Level 136 mmol/L (136-145)
[2022-04-22 06:36] LABS: Bedside Glucose 114 mg/dL (74-106)
[2022-04-22 06:41] VITALS: BP 146/80; PULSE 59
[2022-04-22] MEDS: Polyethylene Glycol 3350 17 GM PACKET PO (06:41)
[2022-04-22] MEDS: hydrALAZINE 50 MG Tablet 75 MG PO ×3 (06:41→21:53)
[2022-04-22] MEDS: hydroCHLOROthiazide 25 MG Tablet PO (06:42)
[2022-04-22] MEDS: Clopidogrel Bisulfate 75 MG Tablet PO (06:42)
[2022-04-22] MEDS: amLODIPine 5 MG Tablet PO (06:42)
[2022-04-22] MEDS: Spironolactone 50 MG Tablet PO (06:42)
[2022-04-22] MEDS: Losartan Potassium 25 MG Tablet PO (06:42)
[2022-04-22] MEDS: Insulin Glargine-YFGN 100 UNIT/ML Pen 18 UNIT SC (06:52)
[2022-04-22 07:15] LABS: Bedside Glucose 129 mg/dL (74-106)
[2022-04-22] MEDS: Insulin Lispro 100 UNIT/ML INSULN.PEN 6 UNIT SC ×3 (07:45→17:57)
[2022-04-22] MEDS: Carvedilol 25 MG Tablet PO ×2 (07:46→17:56)
[2022-04-22] MEDS: Aspirin 81 MG TAB.CHEW PO (07:46)
[2022-04-22] MEDS: Multivitamins,Ther W-Minerals Tablet 1 TABLET PO (07:46)
[2022-04-22] MEDS: Ferrous Sulfate 325 MG Tablet PO (07:46)
[2022-04-22] MEDS: Gabapentin 100 MG Capsule PO ×2 (07:46→17:57)
--- NOTE | 2022-04-22 11:09 | CASEMGMT ---
Social Work SW spoke with to follow up on DC plans. and pt decided to not have formal therapy. and dtr will continue working with pt with [facility], stating is too difficult to get pt to multiple appts throughout the week. is still agreeable to Palliative and CCN services. Referral made to CCN. to have [facility] transport pt on 04/24 and will notify nursing of time. appreciative of this worker's assistance. Plan: DC home with 04/24, [facility] Palliative, CCN, therapy [facility] Tiffanie Meyers, WEATHERIZATION DIRECTOR INVESTMENT SALES ASSISTANT
[2022-04-22 11:36] LABS: Bedside Glucose 154 mg/dL (74-106)
[2022-04-22 13:49] VITALS: BP 107/47; PULSE 50
[2022-04-22 13:53] VITALS: PULSE 50; RESP 16; TEMP 36.7; O2SAT 95
[2022-04-22 13:54] VITALS: PULSE 50; RESP 16; O2SAT 95
[2022-04-22 17:00] LABS: Bedside Glucose 101 mg/dL (74-106)
[2022-04-22 18:01] VITALS: BP 150/54; PULSE 50
--- NOTE | 2022-04-22 19:31 | DS.PCM_ITS ---
Providers Date of Admission: 04/12/22 Primary Care Physician: Dr. Jennifer Watt MD Consultations 04/21/22 10:40 Consult: Hospice / Palliative Care Routine Consulting Provider: [facility] Reason for Consult: PALLIATIVE - CHF, hx of stroke, acute respiratory failure EMERGENT Consult: No MD Notified: Yes Date Notified: 04/21/22 Time Notified: 10:40 Method of Notification: Text Reason For Visit: CHF,L PLURAL INFUSION,CHRONIC KIDNEY DISEASE Diagnosis Discharge Diagnosis (1) Debility: Status: Acute Code(s): R53.81 - Other malaise (2) Acute respiratory failure with hypoxia: Status: Acute Code(s): J96.01 - Acute respiratory failure with hypoxia (3) Acute on chronic diastolic congestive heart failure: Status: Chronic Code(s): I50.33 - Acute on chronic diastolic (congestive) heart failure (4) Acute kidney injury: Status: Acute Code(s): N17.9 - Acute kidney failure, unspecified (5) Pleural effusion, left: Status: Acute Code(s): J90 - Pleural effusion, not elsewhere classified (6) Chronic kidney disease, stage 3b: Status: Acute Code(s): N18.32 - Chronic kidney disease, stage 3b (7) Hypertension: Status: Chronic Code(s): I10 - Essential (primary) hypertension (8) Stroke: Status: Acute Code(s): I63.9 - Cerebral infarction, unspecified (9) BPH (benign prostatic hyperplasia): Status: Acute Code(s): N40.0 - Benign prostatic hyperplasia without lower urinary tract symptoms (10) Hyperlipidemia: Status: Acute Code(s): E78.5 - Hyperlipidemia, unspecified (11) Iron deficiency anemia: Status: Acute Code(s): D50.9 - Iron deficiency anemia, unspecified (12) Diabetes mellitus: Status: Acute Code(s): E11.9 - Type 2 diabetes mellitus without complications (13) Glaucoma: Status: Acute Code(s): H40.9 - Unspecified glaucoma (14) Restless leg syndrome: Status: Acute Code(s): G25.81 - Restless legs syndrome (15) Depression: Status: Acute Code(s): F32.A - Depression, unspecified Plan 81 year old male with below past medical history hospitalized for acute respiratory failure with hypoxia secondary to acute on chronic diastolic heart failure, complicated by acute kidney injury, iron deficiency anemia, left pleural effusion requiring thoracentesis, admitted to TCU with debility, here for rehabilitation, strengthening, prior to discharge home with . * Debility - PT/OT. * Pain - Tylenol 1000mg q6h prn pain (1-10). * Bowel - Miralax 17gm daily, senna/colace 2 tablets bid prn, Dulcolax 10mg pr daily prn. * Adult immunization - Administer pneumonia vaccine, covid19 vaccine, flu vaccine. * DVT prophylaxis - Hold, on dual antiplatelet therapy. * Shortness of breath - Albuterol 2.5mg neb q2h prn. * Hypertension - Coreg 25mg bidcm, Losartan 25mg daily, HCTZ 25mg daily, Amlodip ine 5mg daily, Hydralazine 75mg tid. * Stroke - Plavix 75mg daily, Aspirin 81mg daily. * Chronic diastolic heart failure - Coreg 25mg bidcm, Losartan 25mg daily, Hydralazine 75mg tid, Aldactone 50mg daily. * BPH - Doxazosin 8mg qhs. * Hyperlipidemia - Zetia 10mg qhs. * Iron deficiency anemia - Ferrous sulfate 325mg every other day. * Neuropathic pain - Gabapentin 100mg bid, 300mg qhs. * Diabetes Mellitus II - Glargine 18 units daily, Lispro 6 units tidac. * Glaucoma - Latanoprost 0.005% 1gtt ou qhs. * Nutrition - MVI daily. * Restless Leg syndrome - Mirapaex 0.125mg qhs. 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 Medications at Discharge Home Medications multivitamin,ov-[id number]-[id number] (Complete Multivitamin tablet) 1 tab PO QDAY supplement 03/03/17 aspirin 81 mg chewable tablet 81 mg PO BREAKFAST heart health 01/02/21 Handicap Placard #1 ea 02/12/21 pen needle, diabetic 32 gauge x (BD Sanaz 2nd Gen Pen Needle) #50 ea 06/02/21 carvedilol 25 mg tablet 25 mg PO BID heart 02/24/22 clopidogrel 75 mg tablet (Plavix) 75 mg PO DAILY blood thinner 02/24/22 doxazosin 8 mg tablet 8 mg PO QHS bph 02/24/22 ezetimibe 10 mg tablet (Zetia) 10 mg PO QHS cholesterol 02/24/22 latanoprost 0.005 % eye drops 1 drp EACH EYE HS eyes 02/24/22 pramipexole 0.125 mg tablet 0.125 mg PO QHS parkinsons 02/24/22 sertraline 50 mg tablet 50 mg PO QHS mood 02/24/22 insulin lispro 100 unit/mL subcutaneous pen (Humalog KwikPen (U-100) Insulin) 6 unit subcut TIDAC PRN diabetes 03/17/22 gabapentin 100 mg capsule 100 mg PO BID pain #180 caps 03/18/22 gabapentin 300 mg capsule 300 mg PO 2100 pain #90 caps 03/18/22 hydrochlorothiazide 25 mg tablet 25 mg PO DAILY diuretic 04/05/22 amlodipine 5 mg tablet 5 mg PO DAILY BP 04/12/22 ferrous sulfate 325 mg (65 mg iron) tablet (FeroSul) 325 mg PO QODAY Supplement 04/12/22 hydralazine 25 mg tablet 75 mg PO TID BP 04/12/22 insulin glargine-yfgn 100 unit/mL (3 mL) subcutaneous pen 18 unit (0.18 mL) subcut DAILY diabetes #15 mL 04/12/22 losartan 25 mg tablet 25 mg PO DAILY BP 04/12/22 Hospital Course Operations None Procedures None Summary of Care Provided Minutes Spent on Discharge: 35 Hospital Course: 81 year old male with below past medical history hospitalized for acute respiratory failure with hypoxia secondary to acute on chronic diastolic heart failure, complicated by acute kidney injury, iron deficiency anemia, left pleural effusion requiring thoracentesis, admitted to TCU with debility, here for rehabilitation, strengthening, prior to discharge home with . Discharge home with 04/24/2022, [facility], [facility] Home Exercise Program. Physical Exam Const alert General Appearance: cooperative HEENT normocephalic Eyes PERRL and EOMs intact bilaterally Neck supple, no JVD and no carotid bruits Resp normal respiratory effort, normal air movement and clear to auscultation bilaterally Cardio regular rate and regular rhythm GI normal to inspection, nondistended, normoactive bowel sounds, non-tender and non-distended Extremity normal capillary refill General Extremity: Negative for edema Skin no rashes or lesions noted General Skin Exam: no breakdown Psych affect normal Appearance: appropriate Weight / BMI Weight Weight: 80.422 kg Body Mass Index (BMI) 24.5 ABG / Lab / Microbiology Data Result Diagrams: 04/20/22 05:21 04/22/22 05:35 Laboratory: Laboratory Results - last 24 hr 04/21/22 21:49: POC Glucose 153 H 04/22/22 05:35: Sodium 136, Potassium 4.4, Chloride 104, Carbon Dioxide 26.0, Anion Gap 6, BUN 62 H, Creatinine 2.20 H, Estim Creat Clear Calc 28.41, Est GFR (MDRD) Af Amer 37 L, Est GFR (MDRD) Non-Af 31 L, BUN/Creatinine Ratio 28.2 H, Glucose 113 H, Calcium 9.0 04/22/22 06:08: POC Glucose 114 H 04/22/22 06:50: POC Glucose 129 H 04/22/22 11:14: POC Glucose 154 H 04/22/22 16:43: POC Glucose 101 Microbiology: Microbiology 04/16/22 05:30 Nasal Secretion SARS-CoV-2 Antigen (Rapid) - Final D/C Instructions Discharge Diet: No restrictions Discharge Activity: Return to Normal Activity, May Shower and Use Walker Weight Bearing Status: Weight bearing as tolerated Call your doctor if you observe: Fever of 101 or Higher, Inability to urinate, Inability to have a bowel movement, Shortness of breath, Dizziness, Fainting spells, Swelling in the ankles, Chest pain and Uncontrolled pain Additional Instructions: [place] with [place] [facility] [facility]. Meaningful Use Info Meaningful Use Diagnoses (Choose all that apply): None applicable Discharge Plan Admission Admit Date/Time: 04/12/22 14:07 Primary Reason for Your Visit: Debility. 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 Discharge Orders/Prescriptions Prescriptions: Continued multivitamin,xz-lusd-iamqhrak tablet tablet 1 tab PO QDAY insulin lispro [Humalog KwikPen Insulin] 100 unit/mL insulin pen 6 unit subcut TIDAC PRN (Reason: diabetes) Label Comments: if bs over 130 hydrochlorothiazide 25 mg tablet 25 mg PO DAILY aspirin 81 mg tablet,chewable 81 mg PO BREAKFAST latanoprost 0.005 % drops 1 drp EACH EYE HS carvedilol 25 mg tablet 25 mg PO BID Rx Instructions: must administer with a meal/food clopidogrel [Plavix] 75 mg tablet 75 mg PO DAILY doxazosin 8 mg tablet 8 mg PO QHS pramipexole 0.125 mg tablet 0.125 mg PO QHS sertraline 50 mg tablet 50 mg PO QHS ezetimibe [Zetia] 10 mg tablet 10 mg PO QHS Rx Instructions: take at bedtime insulin glargine-yfgn 100 unit/mL (3 mL) insulin pen 18 unit subcut DAILY Qty: 15 0RF hydralazine 25 mg tablet 75 mg PO TID amlodipine 5 mg tablet 5 mg PO DAILY ferrous sulfate [FeroSul] 325 mg (65 mg iron) tablet 325 mg PO QODAY losartan 25 mg tablet 25 mg PO DAILY gabapentin 100 mg capsule 100 mg PO BID Qty: 180 3RF gabapentin 300 mg capsule 300 mg PO 2100 Qty: 90 3RF Discontinued sennosides-docusate sodium [Stool Softener-Stimulant Laxat] 8.6-50 mg Tablet 2 tab PO BID PRN PRN (Reason: Constipation) Qty: 0 0RF acetaminophen 500 mg Tablet 1,000 mg PO Q6H PRN PRN (Reason: Pain Score 1-10) Qty: 0 0RF albuterol sulfate 2.5 mg /3 mL (0.083 %) Solution For Nebulization 2.5 mg inhalation Q2H PRN PRN (Reason: Dyspnea, wheezing) Qty: 0 0RF insulin lispro [Humalog KwikPen Insulin] 100 unit/mL Insulin Pen 6 unit subcut TIDAC Qty: 15 0RF polyethylene glycol 3350 17 gram powder in packet 17 g PO DAILY spironolactone 50 mg tablet 50 mg PO DAILY insulin lispro [Humalog KwikPen Insulin] 100 unit/mL insulin pen See Protocol subcut ACHS Protocol: 4. Sliding Scale Insulin High-Med Dosing Condition: 150-199 mg/dl = 2 units Condition: 200-259 mg/dl = 4 units Condition: 260-324 mg/dl = 6 units Condition: 325-374 mg/dl = 8 units Condition: 375-409 mg/dl = 10 units Condition: 410-449 mg/dl = 11 units Condition: Greater than 449 call physician Protocol Text: - Use for Total Daily Dose of Insulin 56-80 units - Patient who are insulin resistant or septic HIGH MEDIUM DOSING ALGORITHM No Action (DME) Handicap Placard See Rx Instructions .Route .MEDSUPPLY Qty: 1 0RF Rx Instructions: Length of time: 5 years (DME) pen needle, diabetic [BD Sanaz 2nd Gen Pen Needle] 32 gauge x 5/32 needle See Rx Instructions .ROUTE .MEDSUPPLY Qty: 50 2RF Rx Instructions: use once daily to adminster insulin as directed. Referrals / Follow Up: Jennifer Watt MD [Primary Care Provider] - Disposition Disposition (needs filled in before D/C Order can be placed): Home, Self Care
[2022-04-22] MEDS: Gabapentin 300 MG Capsule PO (21:50)
[2022-04-22 21:53] VITALS: BP 153/65; PULSE 58
[2022-04-22] MEDS: Ezetimibe 10 MG Tablet PO (21:55)
[2022-04-22] MEDS: Latanoprost 0.005% 1 Bottle 1 DRP EACH EYE (21:55)
[2022-04-22] MEDS: Doxazosin 4 MG Tablet 8 MG PO (21:55)
[2022-04-22] MEDS: Pramipexole Di-HCl 0.125 MG Tablet PO (21:55)
[2022-04-22] MEDS: Sertraline 50 MG Tablet PO (21:56)
[2022-04-22 22:11] LABS: Bedside Glucose 232 mg/dL (74-106)
[2022-04-23 06:15] VITALS: BP 134/55; PULSE 55
[2022-04-23] MEDS: Losartan Potassium 25 MG Tablet PO (06:15)
[2022-04-23] MEDS: hydroCHLOROthiazide 25 MG Tablet PO (06:15)
[2022-04-23] MEDS: Clopidogrel Bisulfate 75 MG Tablet PO (06:15)
[2022-04-23] MEDS: Polyethylene Glycol 3350 17 GM PACKET PO (06:15)
[2022-04-23] MEDS: amLODIPine 5 MG Tablet PO (06:15)
[2022-04-23] MEDS: Spironolactone 25 MG Tablet PO (06:15)
[2022-04-23] MEDS: hydrALAZINE 50 MG Tablet 75 MG PO ×3 (06:15→20:05)
[2022-04-23 06:45] LABS: Bedside Glucose 102 mg/dL (74-106)
[2022-04-23] MEDS: Insulin Lispro 100 UNIT/ML INSULN.PEN 6 UNIT SC ×3 (08:14→17:50)
[2022-04-23] MEDS: Insulin Glargine-YFGN 100 UNIT/ML Pen 18 UNIT SC (08:15)
[2022-04-23] MEDS: Carvedilol 25 MG Tablet PO ×2 (08:15→17:49)
[2022-04-23] MEDS: Aspirin 81 MG TAB.CHEW PO (08:16)
[2022-04-23] MEDS: Gabapentin 100 MG Capsule PO ×2 (08:16→18:00)
[2022-04-23] MEDS: Multivitamins,Ther W-Minerals Tablet 1 TABLET PO (08:16)
[2022-04-23 10:30] VITALS: O2SAT 95
--- NOTE | 2022-04-23 10:51 | MDS.RN ---
Information for the mds was obtained from review of the clinical record, interview of resident, staff, and direct observation of resident's care.
--- NOTE | 2022-04-23 12:14 | NS ---
Talked to res , Abigail, about ideas for low sodium Super Bowl Tuesday snacks. Abigail appreciative of ideas and plans to go to grocery store this afternoon to get groceries. Encouraged her to read food labels and look for things that say low sodium, no salt added. Encouraged her to choose fresh fruits/vegetables and try to avoid fried foods. Contact info given in case of additional questions.
[2022-04-23 12:20] LABS: Bedside Glucose 71 mg/dL (74-106)
[2022-04-23 14:05] VITALS: PULSE 58
--- NOTE | 2022-04-23 15:16 | CASEMGMT ---
Social Work BIMS () and PHQ-9 () completed for MDS assessment. Tiffanie Meyers MSW FOOD SERVICE WORKER
[2022-04-23 15:39] VITALS: BP 154/51; PULSE 50; RESP 16; TEMP 36.3; O2SAT 97
[2022-04-23 16:40] LABS: Bedside Glucose 122 mg/dL (74-106)
[2022-04-23 17:15] LABS: Bedside Glucose 105 mg/dL (74-106)
[2022-04-23] MEDS: Gabapentin 300 MG Capsule PO (20:03)
[2022-04-23] MEDS: Doxazosin 4 MG Tablet 8 MG PO (20:04)
[2022-04-23] MEDS: Sertraline 50 MG Tablet PO (20:04)
[2022-04-23] MEDS: Latanoprost 0.005% 1 Bottle 1 DRP EACH EYE (20:04)
[2022-04-23] MEDS: Ezetimibe 10 MG Tablet PO (20:04)
[2022-04-23 20:05] VITALS: BP 142/52; PULSE 48
[2022-04-23] MEDS: Pramipexole Di-HCl 0.125 MG Tablet PO (20:06)
[2022-04-23 21:35] LABS: Bedside Glucose 185 mg/dL (74-106)
[2022-04-23 23:07] VITALS: PULSE 48; RESP 14; O2SAT 96
[2022-04-24 05:23] VITALS: BP 147/56; PULSE 57
[2022-04-24] MEDS: hydroCHLOROthiazide 25 MG Tablet PO (05:23)
[2022-04-24] MEDS: amLODIPine 5 MG Tablet PO (05:23)
[2022-04-24] MEDS: Spironolactone 25 MG Tablet PO (05:23)
[2022-04-24] MEDS: Losartan Potassium 25 MG Tablet PO (05:23)
[2022-04-24] MEDS: Clopidogrel Bisulfate 75 MG Tablet PO (05:23)
[2022-04-24] MEDS: hydrALAZINE 50 MG Tablet 75 MG PO ×2 (05:23→13:46)
[2022-04-24 06:26] LABS: Bedside Glucose 104 mg/dL (74-106)
[2022-04-24 07:08] VITALS: O2SAT 96
[2022-04-24] MEDS: Carvedilol 25 MG Tablet PO (08:07)
[2022-04-24] MEDS: Aspirin 81 MG TAB.CHEW PO (08:07)
[2022-04-24] MEDS: Ferrous Sulfate 325 MG Tablet PO (08:08)
[2022-04-24] MEDS: Multivitamins,Ther W-Minerals Tablet 1 TABLET PO (08:08)
[2022-04-24] MEDS: Gabapentin 100 MG Capsule PO (08:10)
[2022-04-24] MEDS: Insulin Lispro 100 UNIT/ML INSULN.PEN 6 UNIT SC ×2 (08:11→11:54)
[2022-04-24] MEDS: Insulin Glargine-YFGN 100 UNIT/ML Pen 18 UNIT SC (08:14)
[2022-04-24 08:44] LABS: Anion Gap 6 (5-15); BUN 59 mg/dL (7-18); BUN/Creat Ratio 25.7 RATIO (10-20); Calcium,Total 9.2 mg/dL (8.5-10.1); Chloride 105 mmol/L (98-107); EST Glomerular Filtration Rate 29 mL/min (>60); Est Glom Filt Rate - Afr Amer 35 mL/min (>60); Estimated Creatinine Clearance 27.18 ml/min; Glucose 140 mg/dL (74-106); Potassium 4.9 mmol/L (3.5-5.1); Sodium Level 137 mmol/L (136-145)
[2022-04-24 12:15] LABS: Bedside Glucose 145 mg/dL (74-106)
[2022-04-24 13:46] VITALS: BP 116/42; PULSE 47
[2022-04-24 14:10] VITALS: BP 116/42; PULSE 47; RESP 16; TEMP 36.6; O2SAT 93
--- NOTE | 2022-04-29 09:28 | NURSING ---
Patient declines CCN services at this time. States, I have too many doctor appointments at this time. CCN will reconnect with patient in 3 weeks.
== END 2022-04-24 14:09 | disposition home or self-care (01) | DRG 292 ==
PROVIDERS: Admitting Provider Family Medicine Geriatric Medicine; PCP Internal Medicine; Visit Provider Family Medicine Geriatric Medicine
DX: I13.0 Hypertensive heart and chronic kidney disease with heart failure and stage 1 through stage 4 chronic kidney disease, or unspecified chronic kidney disease (principal); I50.32 Chronic diastolic (congestive) heart failure; D63.1 Anemia in chronic kidney disease; E11.22 Type 2 diabetes mellitus with diabetic chronic kidney disease; E11.40 Type 2 diabetes mellitus with diabetic neuropathy, unspecified; E11.39 Type 2 diabetes mellitus with other diabetic ophthalmic complication; D50.9 Iron deficiency anemia, unspecified; E11.51 Type 2 diabetes mellitus with diabetic peripheral angiopathy without gangrene; Z79.4 Long term (current) use of insulin; N18.32 Chronic kidney disease, stage 3b; E78.5 Hyperlipidemia, unspecified; G25.81 Restless legs syndrome; N40.0 Benign prostatic hyperplasia without lower urinary tract symptoms; H40.9 Unspecified glaucoma; Z79.02 Long term (current) use of antithrombotics/antiplatelets; F32.A Depression, unspecified; Z79.82 Long term (current) use of aspirin; Z79.899 Other long term (current) drug therapy
CPT/HCPCS: 36415; 80048; 82962; 83880; 85025; 87811; 92526; 92610; 97110; 97116; 97162; 97166; 97530; 97535; 97802; A4216

== ENCOUNTER → 2022-05-17 | Outpatient (CLI) | payer MEDICARE, SELFPAY ==
[2022-05-17 17:36] LABS: Absolute Lymphocyte Count 1.21 X10^3/uL (0.83-4.51); Absolute Neutrophil Count 3.8 X10^3/uL (2.0-7.7); Basophil# 0.07 X10^3/uL; Basophil% 1.1 % (0-1); Eosinophil# 0.33 X10^3/uL; Eosinophils% 5.4 % (0-5); Hematocrit 33.3 % (40-54); Hemoglobin 10.6 g/dL (13.0-16.5); Lymphocyte # 1.21 X10^3/ul (0.83-4.51); Lymphocyte % 19.7 % (19-41); Mean Corp Hgb Conc 31.8 g/dL (32-36); Mean Corpuscular Hgb 28.3 pg (27.0-32.0); Mean Platelet Vol. 10.7 fl (6.2-12.0); Monocyte# 0.76 X10^3/uL; Monocyte% 12.4 % (0-10); NRBC Flagged by Analyzer 0.3 % (0-5); Neutrophil # 3.75 X10^3/uL (2.7-7.7); Neutrophil % 61.2 % (47-70); Platelet Count 250 K/mm3 (150-450); RBC Distribution Width CV 16.4 % (11.6-14.6); RBC Distribution Width SD 53.9 fl (35.1-43.9); Red Blood Count 3.74 M/mm3 (4.6-6.2); White Blood Count 6.1 K/mm3 (4.4-11.0)
[2022-05-17 18:11] LABS: ALB/GLOB Ratio 0.9 RATIO (0.9-2.4); AST(SGOT) 13 U/L (15-37); Alanine Aminotransfer ALT/SGPT 20 U/L (16-61); Albumin, Serum 3.5 g/dL (3.2-5.0); Alkaline Phosphatase 56 U/L (45-117); Anion Gap 7 (5-15); BUN 42 mg/dL (7-18); BUN/Creat Ratio 20.1 RATIO (10-20); Calcium,Total 9.5 mg/dL (8.5-10.1); Chloride 99 mmol/L (98-107); Creatinine, Serum 2.09 mg/dL (0.70-1.30); EST Glomerular Filtration Rate 32 mL/min (>60); Est Glom Filt Rate - Afr Amer 39 mL/min (>60); Globulin 3.7 g/dL (2.2-4.2); Glucose 102 mg/dL (74-106); Iron 47 ug/dL (65-175); Iron Binding Capacity,Total 281 ug/dL (250-450); Magnesium 2.6 mg/dL (1.6-2.6); PERCENT IRON SATURATION 16.7 % (15.0-55.0); Potassium 4.1 mmol/L (3.5-5.1); Protein, Total 7.2 g/dL (6.4-8.2); Sodium Level 135 mmol/L (136-145)
[2022-05-19 17:07] LABS: Albumin 3.6 g/dL (2.9-4.4); Alpha-1-Globulins 0.3 g/dL (0.0-0.4); Alpha-2-Globulins 0.9 g/dL (0.4-1.0); Free Kappa Light Chains 83.5 mg/L (3.3-19.4); Free Lambda Light Chains 32.3 mg/L (5.7-26.3); Gamma Globulin 0.9 g/dL (0.4-1.8); Immunoglobulin A 226 mg/dL (61-437); Immunoglobulin G 1046 mg/dL (603-1613); Immunoglobulin M 55 mg/dL (15-143); PROEL- TOTAL PROTEIN 6.7 g/dL (6.0-8.5)
== END | disposition home or self-care (01) ==
PROVIDERS: PCP Internal Medicine; Referring Provider Psychiatry & Neurology Neurology; Visit Provider Psychiatry & Neurology Neurology
DX: R53.81 Other malaise (principal); I63.9 Cerebral infarction, unspecified; N18.32 Chronic kidney disease, stage 3b; E61.1 Iron deficiency; E87.1 Hypo-osmolality and hyponatremia; E87.6 Hypokalemia; G62.9 Polyneuropathy, unspecified; N40.0 Benign prostatic hyperplasia without lower urinary tract symptoms; I12.9 Hypertensive chronic kidney disease with stage 1 through stage 4 chronic kidney disease, or unspecified chronic kidney disease
CPT/HCPCS: 36415; 80053; 82784; 83540; 83550; 83735; 83883; 84165; 85025; 86334

== ENCOUNTER → 2022-05-19 | Outpatient (CLI) | payer MEDICARE, SELFPAY | END | disposition home or self-care (01) | LOC: LAB.FUTURE 14:23 | PROVIDERS: PCP Internal Medicine; Visit Provider Psychiatry & Neurology Neurology | DX: G62.9 Polyneuropathy, unspecified (principal) | CPT/HCPCS: 86335 ==

== ENCOUNTER → 2022-06-10 | Outpatient (CLI) | payer MEDICARE, SELFPAY ==
[2022-06-10 15:32] LABS: Anion Gap 5 (5-15); BUN 38 mg/dL (7-18); BUN/Creat Ratio 18.7 RATIO (10-20); Calcium,Total 9.2 mg/dL (8.5-10.1); Chloride 102 mmol/L (98-107); Creatinine, Serum 2.03 mg/dL (0.70-1.30); EST Glomerular Filtration Rate 34 mL/min (>60); Est Glom Filt Rate - Afr Amer 41 mL/min (>60); Glucose 85 mg/dL (74-106); Potassium 3.9 mmol/L (3.5-5.1); Sodium Level 137 mmol/L (136-145)
== END | disposition home or self-care (01) ==
LOC: MTLAB 13:01
PROVIDERS: PCP Internal Medicine; Referring Provider Internal Medicine; Visit Provider Internal Medicine
DX: N18.32 Chronic kidney disease, stage 3b (principal); E11.22 Type 2 diabetes mellitus with diabetic chronic kidney disease
CPT/HCPCS: 36415; 80048

== ENCOUNTER → 2022-09-07 | Outpatient (CLI) | payer MEDICARE, SELFPAY ==
--- NOTE | 2022-09-07 14:50 | US_ITS ---
INDICATION: Urinary frequency/question neurogenic -- Please include postvoid residual EXAMINATION: Ultrasound US Kidney(s) complete (eg, kidneys and bladder) TECHNIQUE: Osman scale and color doppler images were obtained of the kidneys. COMPARISON: 02/25/2022 FINDINGS: RIGHT KIDNEY: 11.6 x 5.0 x 5.7 cm. 5.3 cm lower pole cyst. Several smaller cysts. There is no hydronephrosis. No shadowing calculus or perinephric collection is demonstrated. LEFT KIDNEY: 10.1 x 4.0 x 4.4 cm. 2.7 cm cyst. Smaller cysts. There is no hydronephrosis. No shadowing calculus or perinephric collection is demonstrated. URINARY BLADDER: Both ureter jets visualized. 100 mL post void residual. 4 mm wall thickness. US/Kidney and Bladder IMPRESSION: 100 mL postvoid residual and 4 mm wall thickness suggest urinary bladder outlet obstruction. This may be due to enlarged prostate as demonstrated on 02/25/2022 ultrasound. Electronically Signed: Angel Kuo MD at 23:26 EDT ,
== END | disposition home or self-care (01) ==
LOC: US 14:50
PROVIDERS: PCP Internal Medicine; Referring Provider Internal Medicine; Visit Provider Internal Medicine
DX: R35.0 Frequency of micturition (principal); Z86.73 Personal history of transient ischemic attack (TIA), and cerebral infarction without residual deficits
CPT/HCPCS: 76770

== ENCOUNTER → 2022-10-26 | Outpatient (CLI) | payer MEDICARE, SELFPAY ==
--- NOTE | 2022-10-26 08:32 | RDU_ITS ---
Reason For Study: HX RRA Stent Right Renal Artery Left Renal Artery Right renal artery ostium 206.6/38.5 Unable to visualize LRA origin. RSV/EDV. Left renal artery proximal PSV/EDV Right renal artery proximal 231.7/36.7 . 152.9/31.8 PSV/EDV. Left renal artery mid 306.0/36.7 Right renal artery mid 134.9/23.0 PSV/EDV . PSV/EDV. Left renal artery distal 148.1/32.0 Right renal artery distal 180.6/39.9 PSV/EDV. PSV/EDV. Left RAR 5.13. Right RAR 3.46. Left Renal Parenchyma Right Renal Parenchyma Left upper pole medulla 43.5/4.7 Upper Pole Medula 28.0/6.5 PSV/EDV. PSV/EDV . Right upper pole medulla EDR 0.20 . Left upper pole medulla EDR 0.10 . Right upper pole medulla R.I. 0.77 . Left upper pole medulla R.I. 0.89 . Upper Jordy Cortx 15.3/5.4 PSV/EDV. UP Cortex 21.8/7.2 PSV/EDV. Right upper pole cortex EDR 0.40 . Left upper pole cortex EDR 0.30 . Right upper pole cortex R.I. 0.65 . Left upper pole cortex R.I. 0.67 . Right lower Pole medulla 20.3/4.9 Left lower Pole medulla 29.1/6.3 PSV/EDV . PSV/EDV . Right lower pole medulla EDR 0.20 . Left lower pole medulla EDR 0.20 . Right lower pole medulla R.I. 0.76 . Left lower pole medulla R.I. 0.78 . Lower Pole Cortex 14.8/3.8 PSV/EDV. Lower Pole Cortx 19.8/5.6 PSV/EDV. Right lower pole cortex EDR 0.30 . Left lower pole cortex EDR 0.30 . Right lower pole cortex R.I. 0.74 . Left lower pole cortex R.I. 0.72 . Right Renal Hilar Left Renal Hilar Right Hilar avg 84.4/18.1 PSV/EDV. LT Hilar avg 133.6/19.5 PSV/EDV . Right hilar acceleration time 30 Left hilar acceleration time 30 m/sec. m/sec. Right Renal Dimensions Left Renal Dimensions Right kidney size 12.75 cm . Left kidney size 10.27 cm . Right cortical dimension 1.62 cm . Left cortical dimension 1.20 cm . Anechoic nonvascularized structure Anechoic nonvascularized structure noted within the kidney measuring noted within the kidney measuring approximately 4.06cm x 4.71cm. approximately 1.52cm x 1.58cm. Aorta Proximal abdominal aorta 2.17 x 2.23 cm . Proximal abdominal aorta peak systolic velocity is 59.7 cm/sec . Distal abdominal aorta 2.91 x 2.89 cm . Distal abdominal aorta peak systolic velocity is 102.6 cm/sec . Patient Safety Technically difficult study due to bowel gas and patient mobility. VL/Renal Artery Duplex Ultrasound Interpretation Summary Right renal artery <60% stenosis. Left renal artery >60%. Ordering Physician: Gumaro Tapia Referring Physician: MD Gumaro Tapia Performed By: Layton Barrios RVT
== END | disposition home or self-care (01) ==
LOC: CVS 08:31
PROVIDERS: PCP Internal Medicine; Referring Provider Surgery Vascular Surgery; Visit Provider Surgery Vascular Surgery
DX: Z48.812 Encounter for surgical aftercare following surgery on the circulatory system (principal); I70.1 Atherosclerosis of renal artery; I10 Essential (primary) hypertension
CPT/HCPCS: 93975

== ENCOUNTER 2022-10-28 17:37 | Inpatient (IN) | payer MEDICARE, SELFPAY ==
[2022-10-28] VITALS (7 sets, daily range): BP systolic 117–156; BP diastolic 53–64; PULSE 69–80; RESP 14–22; TEMP 37.2–38; O2SAT 90–96; BMI 25.7; BMI 24.8
--- NOTE | 2022-10-28 18:23 | EKG12_ITS ---
Test Reason : Dysrhythmia Blood Pressure : / mmHG Vent. Rate : 080 BPM Atrial Rate : 080 BPM P-R Int : 150 ms QRS Dur : 084 ms QT Int : 390 ms P-R-T Axes : 056 071 032 degrees QTc Int : 449 ms Normal sinus rhythm Normal ECG Confirmed by KWABENA PERERA ([id number]), online editor ARMAND DUKE ([id number]) on 11/02/2022 9:02:43 AM Referred By: Confirmed By:KWABENA PERERA
--- NOTE | 2022-10-28 18:24 | EDS_ITS ---
HPI History of Present Illness Chief Complaint: Weakness Informant: patient and spouse/S.O. Onset/Context/Timing Onset: Today Narrative Narrative: Patient presents with generalized weakness. He has some chronic left-sided weakness from prior stroke but states today he feels generally weak all over. He was unable to stand and pivot on his left leg which she can normally do. He did start a new medication last evening, finasteride. He is unsure if this may be a reaction to the medication. He denies fever or chills. He has no chest or abdominal pain. He denies cough or shortness of breath. He denies urinary symptoms. [facility] Medical History Absent pedal pulses Acute left-sided muscle weakness Chronic anemia Congestive heart failure Coronary artery disease Depression Dysphagia Essential hypertension Facial droop due to acute stroke History of CVA (cerebrovascular accident) (12/2020) Hydrocele in adult Hyperlipidemia Hypertension Incontinence Limb weakness Normocytic normochromic anemia Obstructive Sleep Apnea-Hypopnea Syndrome Osteoarthritis Peripheral vascular occlusive disease Pneumonia Proteinuria due to type 2 diabetes mellitus Recurrent inguinal hernia of right side without obstruction or gangrene Restless legs Right pontine CVA Right renal artery stenosis Skin lesion of face SOB (shortness of breath) Type 2 diabetes mellitus Unsteadiness Ventricular tachycardia seen on speech lang path therapist (02/20/21) Home Medications multivitamin,[id number] (Complete Multivitamin tablet) 1 tab PO QDAY supplement 03/03/17 [History Last Taken 02/23/22] aspirin 81 mg chewable tablet 81 mg PO BREAKFAST heart health 01/02/21 [History Last Taken 02/24/22] Handicap Placard #1 ea 02/12/21 [Rx Last Taken Unknown] doxazosin 8 mg tablet 8 mg PO QHS bph 02/24/22 [History Last Taken 02/23/22] ezetimibe 10 mg tablet (Zetia) 10 mg PO QHS cholesterol 02/24/22 [History Last Taken 02/23/22] latanoprost 0.005 % eye drops 1 drp EACH EYE HS eyes 02/24/22 [History Last Taken 02/23/22] pramipexole 0.125 mg tablet 0.125 mg PO QHS parkinsons 02/24/22 [History Last Taken 02/23/22] sertraline 50 mg tablet 50 mg PO QHS mood 02/24/22 [History Last Taken 02/24/22] insulin lispro 100 unit/mL subcutaneous pen (Humalog KwikPen (U-100) Insulin) 6 unit subcut TIDAC PRN diabetes 03/17/22 [History Last Taken Unknown] gabapentin 100 mg capsule 100 mg PO BID pain #180 caps 03/18/22 [Rx Last Taken Unknown] gabapentin 300 mg capsule 300 mg PO 2100 pain #90 caps 03/18/22 [Rx Last Taken Unknown] losartan 25 mg tablet 25 mg PO DAILY BP 04/12/22 [History Last Taken Unknown] clopidogrel 75 mg tablet (Plavix) 75 mg PO DAILY blood thinner #90 tabs 06/07/22 [Rx Last Taken Unknown] pen needle, diabetic 32 gauge x 5/32 (BD Sanaz 2nd Gen Pen Needle) #50 ea 06/17/22 [Rx Last Taken Unknown] clonidine HCl 0.1 mg tablet 0.1 mg PO BID #60 tabs 07/09/22 [Rx Last Taken Unknown] furosemide 40 mg tablet (Lasix) 40 mg PO DAILY #60 tabs 08/03/22 [Rx Last Taken Unknown] hydralazine 25 mg tablet 75 mg (3 x 25 mg) PO TID BP #270 tabs 08/05/22 [Rx Last Taken Unknown] insulin glargine 100 unit/mL (3 mL) subcutaneous pen (Basaglar KwikPen U-100 Insulin) 18 unit (0.18 mL) subcut DAILY #15 mL 08/10/22 [Rx Last Taken Unknown] carvedilol 6.25 mg tablet 6.25 mg PO BID #60 tabs 08/12/22 [Rx Last Taken Unknown] triamcinolone acetonide 0.1 % topical cream 1 applic topical BID 10 days #30 grams 10/12/22 [Rx Last Taken Unknown] amlodipine 10 mg tablet 10 mg PO DAILY BP #90 tabs 10/15/22 [Rx Last Taken Unknown] oxygen #1 ea 10/26/22 [Rx Last Taken Unknown] Allergy/AdvReac Type Severity Reaction Status Date / Time meloxicam [From Mobic] Allergy Intermediate itching Verified 10/28/22 17:41 pravastatin [From Pravachol] AdvReac Mild myalgia Verified 10/28/22 17:41 cholestyramine AdvReac hypoglycemi Verified 10/28/22 17:41 a Family History Mother Hypertension Cancer Father Heart disease Diabetes Surgical History History of cataract surgery History of herniorrhaphy History of lumbar laminectomy History of stent insertion of renal artery (08/05/21) Status post laser cataract surgery of left eye Social History household members: spouse and other details: Abigail is his 's name housing: house number of children: 2 current occupational status: retired and other details: worked for [employer] prior to retiring leisure activities: other Smoking Status: Never smoker Electronic Cigarette Use: not used second hand exposure: No alcohol intake: former substance use type: does not use what type of physical activity do you participate in: walking frequency: 1-2 times per week inés/spiritism: None seatbelt use: always ROS ROS ED Constitutional Constitutional ED: Denies chills or fever(s) Eyes Eyes: Denies change in vision ENT ENT ED: Denies rhinorrhea or sore throat Cardiovascular Cardiovascular: Denies chest pain or palpitations Respiratory/Chest Respiratory/Chest: Denies cough or dyspnea Gastrointestinal Gastrointestinal: Denies abdominal pain, diarrhea, nausea or vomiting Genitourinary Genitourinary ED: Denies dysuria Musculoskeletal Musculoskeletal: Denies back pain or extremity pain Integumentary Denies Abrasions or rash Neurologic Neurologic: Reports weakness; Denies headache(s) Psychiatric Psychiatric: Denies anxiety or depression Allergic/Immunologic Allergic/Immunologic ED: Denies lip swelling or urticaria EXAM Physical Exam Const Vital Signs: 10/28/22 17:39 10/28/22 18:24 10/28/22 18:25 Temperature 99.2 F H 100.4 F H Temperature Source Temporal Oral Pulse Rate 80 Respiratory Rate 14 Respiratory Effort Respiratory Pattern Blood Pressure 117/57 L Blood Pressure Mean 77 Pulse Ox 91 Oxygen Delivery Method Room Air Room Air Oxygen Flow Rate (L/min) 10/28/22 19:02 10/28/22 20:03 10/28/22 21:36 Temperature 99.1 F 100.2 F H Temperature Source Oral Oral Pulse Rate 76 71 Respiratory Rate 21 H 22 H Respiratory Effort Normal Non-Labored Respiratory Pattern Normal Blood Pressure 136/62 H 132/53 H Blood Pressure Mean 86 79 Pulse Ox 90 96 Oxygen Delivery Method Room Air Nasal Cannula Oxygen Flow Rate (L/min) 2 10/28/22 22:13 Temperature 98.9 F Temperature Source Oral Pulse Rate 69 Respiratory Rate 20 H Respiratory Effort Respiratory Pattern Blood Pressure 137/56 H Blood Pressure Mean 83 Pulse Ox 96 Oxygen Delivery Method Nasal Cannula Oxygen Flow Rate (L/min) 2 Positive well nourished and well developed General Appearance ED: well developed HEENT Reports normocephalic and head/scalp atraumatic Eyes PERRL and EOMs intact bilaterally Neck supple Chest Wall inspection of chest normal and palpation of chest normal Resp normal respiratory effort and clear to auscultation bilaterally Cardio regular rate and regular rhythm GI non-tender Auscultation: hypoactive bowel sounds Palpation: soft Extremity Extremity Narrative: Generalized weakness to the extremities, left greater than right. Patient does have chronic left-sided weakness from prior stroke. Neuro oriented x3 Sensorium / Orientation: alert Psych mental status grossly normal Skin Skin Narrative: Skin is warm to the touch but I do not appreciate any lesions or rashes. MDM MDM MDM Narrative Medical decision making narrative: Took an oral temperature I saw the patient. His temperature is 100.4. Labwork obtained to evaluate for leukocytosis, anemia, and electrolyte derangement. Patient given Tylenol. Urinalysis obtained to evaluate for infection/hematuria. Chest x-ray obtained to evaluate for acute lung pathology, cardiac size, or mediastinal abnormality. History & Record Review Discussion w/independent historian: Patient and Significant other Lab Data Attestation: I reviewed the patient's lab results. Labs: Laboratory Results - last 24 hr 10/28/22 10/28/22 18:40 19:34 WBC 14.4 H RBC 3.63 L Hgb 10.9 L Hct 33.6 L MCV 92.6 MCH 30.0 MCHC 32.4 RDW Std Deviation 50.1 H RDW Coeff of Cait 14.6 Plt Count 229 MPV 10.4 Immature Gran % (Auto) 0.600 Neut % (Auto) 75.9 H Lymph % (Auto) 8.5 L [place] % (Auto) 13.4 H Eos % (Auto) 1.0 Baso % (Auto) 0.6 Absolute Neuts (auto) 10.9 H Absolute Lymphs (auto) 1.22 Nucleated RBC % 0 Differential Comment SEE COMMENT Diff Path Review May foll Platelet Estimate ADEQUATE RBC Morphology N CHROM Anisocytosis RARE Macrocytosis RARE PT 13.6 INR 1.0 APTT 22.8 L Sodium 137 Potassium 3.6 Chloride 100 Carbon Dioxide 30.0 Anion Gap 7 BUN 33 H Creatinine 1.70 H Estim Creat Clear Calc 36.14 Est GFR (MDRD) Af Amer 50 L Est GFR (MDRD) Non-Af 41 L BUN/Creatinine Ratio 19.4 Glucose 140 H Lactic Acid 0.9 Calcium 9.1 Total Bilirubin 0.40 AST 13 L ALT 14 L Alkaline Phosphatase 63 Total Protein 7.5 Albumin 3.4 Globulin 4.1 Albumin/Globulin Ratio 0.8 L Urine Color Yellow Urine Clarity Clear Urine pH 7.0 Ur Specific [place] 1.010 Urine Protein 100 H Urine Glucose (UA) Normal Urine Ketones Negative Urine Occult Blood 25 H Urine Nitrite Negative Urine Bilirubin Negative Urine Urobilinogen Normal Ur Leukocyte Esterase Negative Urine RBC 0 SEEN Urine WBC 0 SEEN Ur Squamous Epith Cells 0 SEEN Urine Bacteria 0 SEEN Urine Mucus 0 SEEN Radiography Chest X-Ray - ED: 1 View, Read by ED Physician and - (Small left oral effusion. No focal infiltrate.) EKG Initial EKG: Attestation: I personally reviewed and interpreted this EKG as follows: Interpretation: Sinus Rhythm (Sinus 80 with no acute ischemia.) Treatment and Re-Evaluation :: CBC was white count of 14.4 with 76% neutrophils. Hemoglobin is 10.9. Chemistry studies reveal a BUN of 33 and a creatinine of 1.70. This is actually slightly improved when compared to lab values from previously this year. LFTs are unremarkable. Lactic acid is normal at 0.9. Urinalysis reveals no evidence of infection. Swab for COVID and influenza is negative. On repeat evaluation patient is on a couple liters of oxygen via nasal cannula. Nursing staff states that he has sleep apnea and normally wears CPAP at night. When he was falling asleep his O2 sats were around 89 or 90% so he was put on oxygen. At this time patient has generalized weakness and is unable to ambulate or care for himself at home. He was too weak for his to even help him with the restroom today. I will speak with hospitalist regarding admission. Blood and urine cultures are still pending. Discharge Plan Triage Chief Complaint: Weakness ED Provider: Elba Ontiveros Dx/Rx/DC Orders Clinical Impression: Fever, Weakness Prescriptions: No Action multivitamin,hs-[id number]-[id number] tablet tablet 1 tab PO QDAY furosemide [Lasix] 40 mg tablet 40 mg PO DAILY Qty: 60 3RF insulin lispro [Humalog KwikPen Insulin] 100 unit/mL insulin pen 6 unit subcut TIDAC PRN (Reason: diabetes) Patient Comments: if bs over 130 aspirin 81 mg tablet,chewable 81 mg PO BREAKFAST latanoprost 0.005 % drops 1 drp EACH EYE HS doxazosin 8 mg tablet 8 mg PO QHS pramipexole 0.125 mg tablet 0.125 mg PO QHS sertraline 50 mg tablet 50 mg PO QHS ezetimibe [Zetia] 10 mg tablet 10 mg PO QHS Rx Instructions: take at bedtime losartan 25 mg tablet 25 mg PO DAILY (DME) Handicap Placard See Rx Instructions .Route .MEDSUPPLY Qty: 1 0RF Rx Instructions: Length of time: 5 years gabapentin 100 mg capsule 100 mg PO BID Qty: 180 3RF gabapentin 300 mg capsule 300 mg PO 2100 Qty: 90 3RF clopidogrel [Plavix] 75 mg tablet 75 mg PO DAILY Qty: 90 3RF (DME) pen needle, diabetic [BD Sanaz 2nd Gen Pen Needle] 32 gauge x 5/32 needle See Rx Instructions .ROUTE .MEDSUPPLY Qty: 50 2RF Rx Instructions: use once daily to adminster insulin as directed. clonidine HCl 0.1 mg tablet 0.1 mg PO BID Qty: 60 11RF hydralazine 25 mg tablet 75 mg PO TID Qty: 270 3RF insulin glargine [Basaglar KwikPen U-100 Insulin] 100 unit/mL (3 mL) insulin pen 18 unit subcut DAILY Qty: 15 6RF carvedilol 6.25 mg tablet 6.25 mg PO BID Qty: 60 11RF Rx Instructions: must administer with a meal/food triamcinolone acetonide 0.1 % cream 1 applic topical BID 10 Days Qty: 30 1RF amlodipine 10 mg tablet 10 mg PO DAILY Qty: 90 3RF (DME) oxygen See Rx Instructions .Route .MEDSUPPLY Qty: 1 0RF Rx Instructions: DC ALL OXYGEN ORDERS Primary Care Provider: Jennifer Watt Referrals: Jennifer Watt MD [Primary Care Provider] - Disposition Disposition: Acute Care Hospital [facility]
[2022-10-28] MEDS: 0.9% Normal Saline 1,000 ML 150 ML IV (18:44)
[2022-10-28] MEDS: Acetaminophen 325 MG Tablet 650 MG PO (18:44)
[2022-10-28 18:48] LABS: Absolute Lymphocyte Count 1.22 X10^3/uL (0.83-4.51); Absolute Neutrophil Count 10.9 X10^3/uL (2.0-7.7); Basophil# 0.08 X10^3/uL; Basophil% 0.6 % (0-1); Eosinophil# 0.14 X10^3/uL; Hematocrit 33.6 % (40-54); Hemoglobin 10.9 g/dL (13.0-16.5); Lymphocyte # 1.22 X10^3/ul (0.83-4.51); Lymphocyte % 8.5 % (19-41); Mean Corp Hgb Conc 32.4 g/dL (32-36); Mean Corpuscular Volume 92.6 fL (80-94); Mean Platelet Vol. 10.4 fl (6.2-12.0); Monocyte# 1.92 X10^3/uL; Monocyte% 13.4 % (0-10); NRBC Flagged by Analyzer 0 % (0-5); Neutrophil # 10.93 X10^3/uL (2.7-7.7); Neutrophil % 75.9 % (47-70); POSITIVE DIFFERENTIAL YES; Platelet Count 229 K/mm3 (150-450); RBC Distribution Width CV 14.6 % (11.6-14.6); RBC Distribution Width SD 50.1 fl (35.1-43.9); Red Blood Count 3.63 M/mm3 (4.6-6.2); White Blood Count 14.4 K/mm3 (4.4-11.0)
[2022-10-28 18:56] LABS: Differential Indicated SCAN CRITERIA MET
[2022-10-28 18:57] LABS: Partial Thromboplast Time 22.8 Seconds (24.1-36.2); Prothrombin Time (Protime)PT. 13.6 SECONDS (11.7-14.9)
[2022-10-28 19:06] LABS: ALB/GLOB Ratio 0.8 RATIO (0.9-2.4); AST(SGOT) 13 U/L (15-37); Alanine Aminotransfer ALT/SGPT 14 U/L (16-61); Albumin, Serum 3.4 g/dL (3.2-5.0); Alkaline Phosphatase 63 U/L (45-117); Anion Gap 7 (5-15); BUN 33 mg/dL (7-18); BUN/Creat Ratio 19.4 RATIO (10-20); Calcium,Total 9.1 mg/dL (8.5-10.1); Chloride 100 mmol/L (98-107); EST Glomerular Filtration Rate 41 mL/min (>60); Est Glom Filt Rate - Afr Amer 50 mL/min (>60); Estimated Creatinine Clearance 36.14 ml/min; Globulin 4.1 g/dL (2.2-4.2); Glucose 140 mg/dL (74-106); Potassium 3.6 mmol/L (3.5-5.1); Protein, Total 7.5 g/dL (6.4-8.2); Sodium Level 137 mmol/L (136-145)
--- NOTE | 2022-10-28 19:08 | RAD_ITS ---
STUDY: X-RAY CHEST REASON FOR EXAM: Male, 82 years old. fever TECHNIQUE: Single AP portable view of the chest. COMPARISON: 04/12/2022 FINDINGS: The lungs are clear and expanded. Small left pleural effusion. Elevated right hemidiaphragm. Normal size heart. Normal mediastinum and arianne. Normal visualized pulmonary arteries. Normal visualized aortic arch and descending thoracic aorta. Normal visualized thoracic spine. Normal visualized ribs, clavicles, and shoulders. There is no demonstrated abnormality of the visualized soft tissue structures of the upper abdomen. RAD/Chest 1 View (Portable) IMPRESSION: Small left pleural effusion. Electronically Signed: Rafa Lowery MD at 19:43 EDT ,
[2022-10-28 19:21] LABS: Anisocytosis RARE; Macrocytosis RARE; Platelet Estimate ADEQUATE (ADEQ); Red Cell Morphology N CHROM NORMAL (NORM C&C)
[2022-10-28 19:22] LABS: Lactic Acid 0.9 mmol/L (0.4-1.9)
[2022-10-28 19:41] LABS: Bacteria 0 SEEN /hpf (None Seen); Mucous, Urine 0 SEEN /hpf (<or=2+); Red Blood Cells-Urine 0 SEEN /hpf (0-5); Squamous Epithelial Cells - UA 0 SEEN /hpf (0-5); White Blood Cells 0 SEEN /hpf (0-5)
[2022-10-28 19:43] LABS: Color, Urine Yellow (Yellow); Glucose, Dipstick Normal (Normal); Ketone-Dipstick Negative (Negative); Leukocyte Esterase-Dipstick Negative /ul (Negative); Nitrite-Dipstick Negative (Negative); Occult Blood-Urine 25 /ul (Negative); Protein-Dipstick 100 mg/dl (Negative); Urine Bilirubin Dipstick Negative (Negative); Urine Clarity Clear (Clear); Urine Urobilinogen Normal (Normal)
--- NOTE | 2022-10-28 22:26 | HP.PCM.HOS_ITS ---
HPI - General General Date of Admission: 10/28/22 Date of Service: 10/28/22 Chief Complaint: Weakness HPI Narrative SHAISTA CLOUD, is a 82 M with a significant history of hypertension; diabetes mellitus; CVA with residual left-sided weakness who presents emergency department with generalized weakness that started the same day. Patient is too weak that he is unable to get up from the bed. He fell back onto his bed in an attempt to get up. Of note patient was started on finasteride a day before presentation for BPH. Patient attributes his symptoms of weakness to the finasteride. Also patient is awaiting Flomax in the mail. He described his BPH symptoms as urinary urgency Patient denies fever at home. He reports chills. At the emergency department patient was found to have low-grade fever and leukocytosis. At the emergency department previously patient was found to have hypoxia. Reported that he is on home BiPAP settings 26/01 [facility] Medical History Absent pedal pulses Acute left-sided muscle weakness Chronic anemia Congestive heart failure Coronary artery disease Depression Dysphagia Essential hypertension Facial droop due to acute stroke History of CVA (cerebrovascular accident) (12/2020) Hydrocele in adult Hyperlipidemia Hypertension Incontinence Limb weakness Normocytic normochromic anemia Obstructive Sleep Apnea-Hypopnea Syndrome Osteoarthritis Peripheral vascular occlusive disease Pneumonia Proteinuria due to type 2 diabetes mellitus Recurrent inguinal hernia of right side without obstruction or gangrene Restless legs Right pontine CVA Right renal artery stenosis Skin lesion of face SOB (shortness of breath) Type 2 diabetes mellitus Unsteadiness Ventricular tachycardia 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 on shuttle buggy 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 (02/20/21) Home Medications multivitamin,[id number] (Complete Multivitamin tablet) 1 tab PO QDAY supplement 03/03/17 [History Last Taken 02/23/22] aspirin 81 mg chewable tablet 81 mg PO BREAKFAST heart health 01/02/21 [History Last Taken 02/24/22] Handicap Placard #1 ea 02/12/21 [Rx Last Taken Unknown] doxazosin 8 mg tablet 8 mg PO QHS bph 02/24/22 [History Last Taken 02/23/22] ezetimibe 10 mg tablet (Zetia) 10 mg PO QHS cholesterol 02/24/22 [History Last Taken 02/23/22] latanoprost 0.005 % eye drops 1 drp EACH EYE HS eyes 02/24/22 [History Last Taken 02/23/22] pramipexole 0.125 mg tablet 0.125 mg PO QHS parkinsons 02/24/22 [History Last Taken 02/23/22] sertraline 50 mg tablet 50 mg PO QHS mood 02/24/22 [History Last Taken 02/24/22] insulin lispro 100 unit/mL subcutaneous pen (Humalog KwikPen (U-100) Insulin) 6 unit subcut TIDAC PRN diabetes 03/17/22 [History Last Taken Unknown] gabapentin 100 mg capsule 100 mg PO BID pain #180 caps 03/18/22 [Rx Last Taken Unknown] gabapentin 300 mg capsule 300 mg PO 2100 pain #90 caps 03/18/22 [Rx Last Taken Unknown] losartan 25 mg tablet 25 mg PO DAILY BP 04/12/22 [History Last Taken Unknown] clopidogrel 75 mg tablet (Plavix) 75 mg PO DAILY blood thinner #90 tabs 06/07/22 [Rx Last Taken Unknown] pen needle, diabetic 32 gauge x 5/32 (BD Sanaz 2nd Gen Pen Needle) #50 ea 06/17/22 [Rx Last Taken Unknown] clonidine HCl 0.1 mg tablet 0.1 mg PO BID #60 tabs 07/09/22 [Rx Last Taken Unknown] furosemide 40 mg tablet (Lasix) 40 mg PO DAILY #60 tabs 08/03/22 [Rx Last Taken Unknown] hydralazine 25 mg tablet 75 mg (3 x 25 mg) PO TID BP #270 tabs 08/05/22 [Rx Last Taken Unknown] insulin glargine 100 unit/mL (3 mL) subcutaneous pen (Basaglar KwikPen U-100 Insulin) 18 unit (0.18 mL) subcut DAILY #15 mL 08/10/22 [Rx Last Taken Unknown] carvedilol 6.25 mg tablet 6.25 mg PO BID #60 tabs 08/12/22 [Rx Last Taken Unknown] triamcinolone acetonide 0.1 % topical cream 1 applic topical BID 10 days #30 grams 10/12/22 [Rx Last Taken Unknown] amlodipine 10 mg tablet 10 mg PO DAILY BP #90 tabs 10/15/22 [Rx Last Taken Unknown] oxygen #1 ea 10/26/22 [Rx Last Taken Unknown] Allergy/AdvReac Type Severity Reaction Status Date / Time meloxicam [From Mobic] Allergy Intermediate itching Verified 10/28/22 17:41 pravastatin [From Pravachol] AdvReac Mild myalgia Verified 10/28/22 17:41 cholestyramine AdvReac hypoglycemi Verified 10/28/22 17:41 a Family History Mother Hypertension Cancer Father Heart disease Diabetes Surgical History History of cataract surgery History of herniorrhaphy History of lumbar laminectomy History of stent insertion of renal artery (08/05/21) Status post laser cataract surgery of left eye Social History household members: spouse and other details: Abigail is his 's name housing: house number of children: 2 current occupational status: retired and other details: worked for [employer] prior to retiring leisure activities: other Smoking Status: Never smoker Electronic Cigarette Use: not used second hand exposure: No alcohol intake: former substance use type: does not use what type of physical activity do you participate in: walking frequency: 1-2 times per week inés/judaism: None seatbelt use: always ROS ROS Narrative Pertinent positives and pertinent negatives as noted in HPI. All other systems were reviewed and are negative Vital Signs Vital Signs Vital Signs: 10/28/22 17:39 10/28/22 18:24 10/28/22 18:25 Temperature 99.2 F H 100.4 F H Temperature Source Temporal Oral Pulse Rate 80 Respiratory Rate 14 Respiratory Effort Respiratory Pattern Blood Pressure 117/57 L Blood Pressure Mean 77 Pulse Ox 91 Oxygen Delivery Method Room Air Room Air Oxygen Flow Rate (L/min) 10/28/22 19:02 10/28/22 20:03 10/28/22 21:36 Temperature 99.1 F 100.2 F H Temperature Source Oral Oral Pulse Rate 76 71 Respiratory Rate 21 H 22 H Respiratory Effort Normal Non-Labored Respiratory Pattern Normal Blood Pressure 136/62 H 132/53 H Blood Pressure Mean 86 79 Pulse Ox 90 96 Oxygen Delivery Method Room Air Nasal Cannula Oxygen Flow Rate (L/min) 2 10/28/22 22:13 Temperature 98.9 F Temperature Source Oral Pulse Rate 69 Respiratory Rate 20 H Respiratory Effort Respiratory Pattern Blood Pressure 137/56 H Blood Pressure Mean 83 Pulse Ox 96 Oxygen Delivery Method Nasal Cannula Oxygen Flow Rate (L/min) 2 Weight Weight: 86.2 kg Body Mass Index (BMI) 25.7 Physical Exam Narrative Physical exam: General: Well-nourished, well-developed. Head: Normocephalic, atraumatic, no tenderness Eyes: Vision is grossly intact. EOMI ENT, no trauma, moist mucous membranes, no rhinorrhea Neck: Nontender, No thyromegaly. CVS: Regular rate and rhythm. S1-S2 present. No murmur, gallop or rub. Respiratory : clear to auscultation bilaterally, chest wall nontender Abdomen: Soft, nontender, nondistended, normal bowel sounds, no masses : Deferred Back: Nontender, no CVA tenderness, no midline spinal tenderness, deformities, step-offs Extremities: Nontender full range of motion, no trauma Skin: Normal color, no trauma, abrasions Neuro: Alert, oriented, cranial nerves II through XII grossly intact. Unable to raise his left hand. Can raise right hand. Strength in right leg 5 out of 5. Strength in left leg 3 out of 5. Psychiatry: Normal mood. Normal affect. Not depressed. Not anxious. Results Lab / Micro Data 10/28/22 18:40 10/28/22 18:40 Labs: Laboratory Results - last 24 hr 10/28/22 18:40: WBC 14.4 H, RBC 3.63 L, Hgb 10.9 L, Hct 33.6 L, MCV 92.6, MCH 30.0, MCHC 32.4, RDW Std Deviation 50.1 H, RDW Coeff of Cait 14.6, Plt Count 229, MPV 10.4, Immature Gran % (Auto) 0.600, Neut % (Auto) 75.9 H, Lymph % (Auto) 8.5 L, [place] % (Auto) 13.4 H, Eos % (Auto) 1.0, Baso % (Auto) 0.6, Absolute Neuts (auto) 10.9 H, Absolute Lymphs (auto) 1.22, Nucleated RBC % 0, Differential Comment SEE COMMENT, Diff Path Review May foll, Platelet Estimate ADEQUATE, RBC Morphology N CHROM, Anisocytosis RARE, Macrocytosis RARE, PT 13.6, INR 1.0, APTT 22.8 L, Sodium 137, Potassium 3.6, Chloride 100, Carbon Dioxide 30.0, Anion Gap 7, BUN 33 H, Creatinine 1.70 H, Estim Creat Clear Calc 36.14, Est GFR (MDRD) Af Amer 50 L, Est GFR (MDRD) Non-Af 41 L, BUN/Creatinine Ratio 19.4, Glucose 140 H, Lactic Acid 0.9, Calcium 9.1, Total Bilirubin 0.40, AST 13 L, ALT 14 L, Alkaline Phosphatase 63, Total Protein 7.5, Albumin 3.4, Globulin 4.1, Albumin/Globulin Ratio 0.8 L 10/28/22 19:34: Urine Color Yellow, Urine Clarity Clear, Urine pH 7.0, Ur Specific [place] 1.010, Urine Protein 100 H, Urine Glucose (UA) Normal, Urine Ketones Negative, Urine Occult Blood 25 H, Urine Nitrite Negative, Urine Bilirubin Negative, Urine Urobilinogen Normal, Ur Leukocyte Esterase Negative, Urine RBC 0 SEEN, Urine WBC 0 SEEN, Ur Squamous Epith Cells 0 SEEN, Urine Bacteria 0 SEEN, Urine Mucus 0 SEEN Micro: Microbiology 10/28/22 18:50 Nasal Secretion SARS-CoV-2 & FLU Antigen (Rapid) - Final Assessment & Plan Assessment/Plan (1) Weakness: (2) Fever: QUALIFIERS: Fever type: unspecified Qualified Code(s): R50.9 - Fever, unspecified (3) Urinary retention: PLAN: Plan Generalized weakness PT and OT to work with patient. Case management consult. Fever and leukocytosis Etiology unclear. Urinalysis unremarkable. Impression of chest x-ray by radiology: Small left pleural effusion. Actual chest x-ray image was independently interpreted and I agree with the interpretation. Trend CBC. Trend vitals. Urinary urgency/BPH We will continue finasteride as patient weakness may not be secondary to finasteride. His fever and leukocytosis may be accounting for his weakness. Flomax ordered. Hypoxia/obstructive sleep apnea BiPAP continued DVT prophylaxis subcutaneous Lovenox ordered. Time spent in the patient's overall evaluation,decision-making process, review of diagnostic data, adjustment of management, discussion with other providers, nursing nursing and ancillary staff involved in patient's care documentation, 65 minutes. Charges/Coding Visit Charges Inpatient E&M: 62718 Init Hosp L3
[2022-10-29] VITALS (12 sets, daily range): BP systolic 131–148; BP diastolic 47–68; PULSE 66–83; RESP 15–18; TEMP 36.8–38.2; O2SAT 86–95
[2022-10-29 00:44] LABS: Bedside Glucose 182 mg/dL (74-106)
[2022-10-29] MEDS: hydrALAZINE 25 MG Tablet 75 MG PO ×3 (05:46→22:28)
[2022-10-29 06:27] LABS: Absolute Lymphocyte Count 1.15 X10^3/uL (0.83-4.51); Absolute Neutrophil Count 11.2 X10^3/uL (2.0-7.7); Basophil# 0.06 X10^3/uL; Basophil% 0.4 % (0-1); Eosinophil# 0.07 X10^3/uL; Eosinophils% 0.5 % (0-5); Hematocrit 29.7 % (40-54); Hemoglobin 9.8 g/dL (13.0-16.5); Lymphocyte # 1.15 X10^3/ul (0.83-4.51); Lymphocyte % 7.9 % (19-41); Mean Corpuscular Hgb 30.4 pg (27.0-32.0); Mean Corpuscular Volume 92.2 fL (80-94); Mean Platelet Vol. 10.6 fl (6.2-12.0); Monocyte# 1.96 X10^3/uL; Monocyte% 13.5 % (0-10); NRBC Flagged by Analyzer 0 % (0-5); Neutrophil # 11.16 X10^3/uL (2.7-7.7); Neutrophil % 77.1 % (47-70); POSITIVE DIFFERENTIAL YES; Platelet Count 211 K/mm3 (150-450); RBC Distribution Width CV 14.5 % (11.6-14.6); Red Blood Count 3.22 M/mm3 (4.6-6.2); White Blood Count 14.5 K/mm3 (4.4-11.0)
[2022-10-29 06:32] LABS: Differential Indicated SCAN CRITERIA MET
[2022-10-29 06:54] LABS: Differential Comment SCANNED
[2022-10-29 07:02] LABS: Anion Gap 6 (5-15); BUN 29 mg/dL (7-18); BUN/Creat Ratio 18.4 RATIO (10-20); Calcium,Total 8.6 mg/dL (8.5-10.1); Chloride 104 mmol/L (98-107); Creatinine, Serum 1.58 mg/dL (0.70-1.30); EST Glomerular Filtration Rate 45 mL/min (>60); Est Glom Filt Rate - Afr Amer 54 mL/min (>60); Estimated Creatinine Clearance 38.88 ml/min; Glucose 154 mg/dL (74-106); Potassium 3.4 mmol/L (3.5-5.1); Sodium Level 138 mmol/L (136-145)
[2022-10-29] MEDS: Insulin Glargine-YFGN 100 UNIT/ML Pen 14 UNIT SC (07:56)
[2022-10-29] MEDS: Gabapentin 100 MG Capsule PO ×2 (07:56→17:29)
[2022-10-29] MEDS: Carvedilol 6.25 MG Tablet PO ×2 (07:56→17:30)
[2022-10-29] MEDS: Multivitamins,Ther W-Minerals Tablet 1 TABLET PO (07:56)
[2022-10-29] MEDS: Aspirin 81 MG TAB.CHEW PO (07:56)
[2022-10-29] MEDS: Insulin Lispro 100 UNIT/ML INSULN.PEN SC ×3 (07:56→17:30)
[2022-10-29] MEDS: Furosemide 40 MG Tablet PO (11:02)
[2022-10-29] MEDS: Losartan Potassium 25 MG Tablet PO (11:02)
[2022-10-29] MEDS: Clopidogrel Bisulfate 75 MG Tablet PO (11:03)
[2022-10-29] MEDS: cloNIDine HCl 0.1 MG Tablet PO ×2 (11:03→22:29)
[2022-10-29] MEDS: Enoxaparin 40 MG/0.4 ML Syringe SC (11:03)
[2022-10-29] MEDS: amLODIPine 10 MG Tablet PO (11:03)
--- NOTE | 2022-10-29 11:03 | PCM.PN.HOSP ---
Reason for Visit Reason for Visit: Diagnoses Retention of urine, unspecified (10/28/22) Fever, unspecified (10/28/22) Weakness (10/28/22) Subjective Subjective Follow-up for generalized weakness with history of right-sided hemiparesis from previous stroke Objective Data Objective Data Vital Signs: Vital Signs Temp Pulse Resp BP Pulse Ox O2 Del Method O2 Flow Rate 99.7 F H 73 16 137/51 H 93 Room Air 2 10/29/22 10:58 10/29/22 10:58 10/29/22 10:58 10/29/22 10:58 10/29/22 10:58 10/29/22 10:58 10/29/22 04:43 Oxygen Flow Rate (L/min) 2 Oxygen Delivery Method Room Air Weight: 183 lb 3.266 oz Body Mass Index (BMI) 24.8 Intake & Output: Intake and Output for Last 24 Hours 10/27/22 10/28/22 10/29/22 23:59 23:59 23:59 Intake Total 1000 / 1000 Output Total 150 / 150 300 / 300 Balance -150 / -150 700 / 700 Lab / Micro Data 10/29/22 05:55 10/29/22 05:55 Labs: Laboratory Results - last 24 hr 10/28/22 18:40: WBC 14.4 H, RBC 3.63 L, Hgb 10.9 L, Hct 33.6 L, MCV 92.6, MCH 30.0, MCHC 32.4, RDW Std Deviation 50.1 H, RDW Coeff of Cait 14.6, Plt Count 229, MPV 10.4, Immature Gran % (Auto) 0.600, Neut % (Auto) 75.9 H, Lymph % (Auto) 8.5 L, [place] % (Auto) 13.4 H, Eos % (Auto) 1.0, Baso % (Auto) 0.6, Absolute Neuts (auto) 10.9 H, Absolute Lymphs (auto) 1.22, Nucleated RBC % 0, Differential Comment SEE COMMENT, Diff Path Review May foll, Platelet Estimate ADEQUATE, RBC Morphology N CHROM, Anisocytosis RARE, Macrocytosis RARE, PT 13.6, INR 1.0, APTT 22.8 L, Sodium 137, Potassium 3.6, Chloride 100, Carbon Dioxide 30.0, Anion Gap 7, BUN 33 H, Creatinine 1.70 H, Estim Creat Clear Calc 36.14, Est GFR (MDRD) Af Amer 50 L, Est GFR (MDRD) Non-Af 41 L, BUN/Creatinine Ratio 19.4, Glucose 140 H, Lactic Acid 0.9, Calcium 9.1, Total Bilirubin 0.40, AST 13 L, ALT 14 L, Alkaline Phosphatase 63, Total Protein 7.5, Albumin 3.4, Globulin 4.1, Albumin/Globulin Ratio 0.8 L 10/28/22 19:34: Urine Color Yellow, Urine Clarity Clear, Urine pH 7.0, Ur Specific [place] 1.010, Urine Protein 100 H, Urine Glucose (UA) Normal, Urine Ketones Negative, Urine Occult Blood 25 H, Urine Nitrite Negative, Urine Bilirubin Negative, Urine Urobilinogen Normal, Ur Leukocyte Esterase Negative, Urine RBC 0 SEEN, Urine WBC 0 SEEN, Ur Squamous Epith Cells 0 SEEN, Urine Bacteria 0 SEEN, Urine Mucus 0 SEEN 10/28/22 23:40: POC Glucose 182 H 10/29/22 05:55: WBC 14.5 H, RBC 3.22 L, Hgb 9.8 L, Hct 29.7 L, MCV 92.2, MCH 30.4, MCHC 33.0, RDW Std Deviation 49.0 H, RDW Coeff of Cait 14.5, Plt Count 211, MPV 10.6, Immature Gran % (Auto) 0.600, Neut % (Auto) 77.1 H, Lymph % (Auto) 7.9 L, [place] % (Auto) 13.5 H, Eos % (Auto) 0.5, Baso % (Auto) 0.4, Absolute Neuts (auto) 11.2 H, Absolute Lymphs (auto) 1.15, Nucleated RBC % 0, Differential Comment SCANNED, Diff Path Review July, Sodium 138, Potassium 3.4 L, Chloride 104, Carbon Dioxide 28.0, Anion Gap 6, BUN 29 H, Creatinine 1.58 H, Estim Creat Clear Calc 38.88, Est GFR (MDRD) Af Amer 54 L, Est GFR (MDRD) Non-Af 45 L, BUN/Creatinine Ratio 18.4, Glucose 154 H, Calcium 8.6 Micro: Microbiology 10/28/22 18:50 Nasal Secretion SARS-CoV-2 & FLU Antigen (Rapid) - Final Radiography Diagnostic Testing: Radiology Impression Chest X-Ray 10/28/22 19:08 IMPRESSION: Small left pleural effusion. Electronically Signed: Rafa Lowery MD at 19:43 EDT , Physical Exam Narrative Seen and examined. Patient has low-grade fever Tmax 100.4 Fahrenheit. Denies focal symptoms of infection. Patient does not look septic/toxic. Patient treated stroke with left-sided hemiparesis and facial weakness, dysphagia/dysarthria in December 2020. Physical exam General: Alert, Oriented x3, Cooperative HEENT: Atraumatic, PERRLA, EOMI, Normocephalic Oral: Oral mucosa dry. No Gingival or Mucosal Lesions/ Ulcerations/inflammatory lesion or exudate Neck: Supple, No JVD, Negative Carotid Bruits Lungs: Air entry diminished in bilateral lung bases. No crepitation/rhonchi Cardiovascular: Regular rate, Regular Rhythm, Normal S1, Normal S2, No murmurs Abdomen: Bowel Sounds Present, Soft, Non Tender, Non-Distended : No dysuria or new lower urinary tract symptoms. No renal angle tenderness. No suprapubic tenderness. Extremities: No edema, Capillary Refill Less than 3 Seconds Skin: No rashes, No breakdown Musculoskeletal: No Tenderness to Palpation of Joints or Extremities Neurological: Left-sided facial weakness with left hemiparesis. Left upper extremity strength 1/5. Left lower extremity is improved about 3+/5. Psych/Mental Status: Flat affect Assessment & Plan Assessment/Plan (1) Weakness: (2) Fever: QUALIFIERS: Fever type: unspecified Qualified Code(s): R50.9 - Fever, unspecified (3) Urinary retention: PLAN: Plan Generalized weakness and failure to thrive beyond left-sided weakness since facial paralysis from December 2020 stroke PT and OT to work with patient. Case management consult. Fever and leukocytosis, etiology unclear: Patient denies focal symptoms of URI including cough, sore throat, postnasal drip or allergic symptoms. Patient denies abdominal pain, chest pain or shortness of breath. No alteration of bowel habit. No new symptoms including dysuria and genitourinary symptoms. Might be viral. Patient denies any contact with sick person. Etiology unclear. Urinalysis unremarkable. Chest x-ray initially reviewed and does not show acute infiltrate but small left pleural effusion. Blood cultures x2 and urine culture has been sent from ED. Reports pain Urinary urgency/BPH continue finasteride as patient weakness may not be secondary to finasteride. His fever and leukocytosis may be accounting for his weakness. Flomax ordered. Hypoxia/obstructive sleep apnea BiPAP continued DVT prophylaxis subcutaneous Lovenox ordered. Charges/Coding Visit Charges Inpatient E&M: 32926 Subs Hosp L2
[2022-10-29 12:33] LABS: Pathologist Review Reviewed
[2022-10-29 12:37] LABS: Pathologist Review Reviewed
--- NOTE | 2022-10-29 15:04 | CASEMGMT ---
Discharge Planning A list of home healthcare and SNF providers including quality and resource use data and consistent with the patient?s preferred geographic region, medical needs, and insurance network was created in [employer] Guide. This list was provided to the RN DARIEL. Rizwana Hahn, Discharge Planning Asst.
--- NOTE | 2022-10-29 15:45 | CASEMGMT ---
RN?CM?BRANNER MACHINE TENDER?CM?to room to meet with patient for initial transition planning/care coordination?assessment.?RN?CM?introduced self and role at [facility].? Pt voices understanding and consents to?assessment?at this time.? Pt resting in bed in no distress at this time.? Pt is A/O at this time and answers all questions appropriately.?? Care providers, pharmacy, and demographics verified/updated at this time. PCP: Sh[facility]ri Specialists: Jazmine-eeo officer; Yvan-overlock elastic attacher; Regina-Vascular, Akbar-air cargo specialist; Gerson-lamp wirer Preferred Pharmacy: [facility] Insurance: [employer] Prescription Benefit: yes Living Will/HPOA: Pt has both LW and HCPOA, who is his ,Abigail BARNOE: . 2 children. One dtr is Jimena. Living Arrangements: Patient live with in a single story home with 3 steps and railing to enter the home. assists with ADLs at home and assists pt w/getting in/out of bed and home mgnt tasks. Transportation: , daughter DME: Patient has shower chair, RTS, adjustable bed, wheelchair, grab bars, pulse ox, ana-walker, and BIPAP. Pt states he also has oxygen equipment @ his home through [facility] [employer] that was set up in Mar or Apr of this year. He states he has never used it and that he has been working on having [employer] come pick it up, but was told he needs to take it to the office, that [employer] cannot pick it up. He also states he has spoken w/Dr Watt's office and that he gave the approval to not wear the O2 and released him. Pt states would like some assistance w/this. Call placed to Juanita @ [facility] who states they can make arrangements for someone to pick it up from pt's home and asked CHADD VIEIRA to contact Santosh @ [facility] [employer]. Call to Santosh. No answer. Detailed VM left re: above and pt's request. Pt made aware someone from [employer] [employer] should be reaching out to his re: pick-up of O2 equipment. He voices appreciation. SNF/HHC: Patient has been to [facility] twice and has had [facility] in the past. Discussed d/c planning. Pt states he is too weak at this time and feels going somewhere to get stronger would be safest, as his is petite and not strong enough to take care of him currently. Pt provided w/SNF list of choices that was prepared by production planner scheduler. Pt states [facility] is his 1st choice. Clarissa IRVIN, made aware. PLAN:??SNF Parvin BSN?RN?CM
--- NOTE | 2022-10-29 16:02 | CASEMGMT ---
Social Work This home health care social worker sent backline notice to SILAS, Ondina. Ondina reports to not be able to review referral until Tuesday. Ondina aware that pre-cert needs to be started when patient is accepted. This home health care social worker updated patient on above along with medical team. PLAN: TCU, pending acceptance and pre-cert. Social Work to continue to follow. Benjamin Alex MSW, HOA-S
--- NOTE | 2022-10-29 16:20 | CASEMGMT ---
Discharge Planning Met with patient to complete RAMACHANDRAN form. RAMACHANDRAN form explained to patient who voiced understanding and signed form. Original form placed in pt?s chart and copy provided to patient. Rizwana Hanh, Discharge Planning Asst.
[2022-10-29] MEDS: Tamsulosin HCl 0.4 MG Capsule PO (17:30)
[2022-10-29] MEDS: Acetaminophen 325 MG Tablet 650 MG PO (20:59)
[2022-10-29] MEDS: Gabapentin 300 MG Capsule PO (22:24)
[2022-10-29] MEDS: Pramipexole Di-HCl 0.125 MG Tablet PO (22:28)
[2022-10-29] MEDS: Sertraline 50 MG Tablet PO (22:30)
[2022-10-29] MEDS: Latanoprost 0.005% 1 Bottle 1 DRP EACH EYE (22:30)
[2022-10-29] MEDS: Doxazosin 4 MG Tablet 8 MG PO (22:30)
[2022-10-29] MEDS: Ezetimibe 10 MG Tablet PO (22:31)
--- NOTE | 2022-10-29 23:11 | CPS ---
pt wanted to use own bipap machine but has no tubing-placed on hospitals machine for the night
[2022-10-30] VITALS (11 sets, daily range): BP systolic 108–145; BP diastolic 48–58; PULSE 54–70; RESP 14–16; TEMP 36.6–37.2; O2SAT 93–98
[2022-10-30] MEDS: hydrALAZINE 25 MG Tablet 75 MG PO (06:46)
[2022-10-30] MEDS: Insulin Lispro 100 UNIT/ML INSULN.PEN SC ×3 (08:13→17:07)
[2022-10-30] MEDS: Insulin Glargine-YFGN 100 UNIT/ML Pen 14 UNIT SC (08:15)
[2022-10-30] MEDS: Aspirin 81 MG TAB.CHEW PO (08:20)
[2022-10-30] MEDS: Multivitamins,Ther W-Minerals Tablet 1 TABLET PO (08:21)
[2022-10-30] MEDS: Carvedilol 6.25 MG Tablet PO ×2 (08:21→17:08)
[2022-10-30] MEDS: Gabapentin 100 MG Capsule PO ×2 (08:23→17:08)
[2022-10-30 08:38] LABS: Bedside Glucose 149 mg/dL (74-106)
--- NOTE | 2022-10-30 10:28 | PN.HOSP_ITS ---
Reason for Visit Reason for Visit: Diagnoses Retention of urine, unspecified (10/29/22) Fever, unspecified (10/29/22) Weakness (10/29/22) Objective Data Objective Data Vital Signs: Vital Signs Temp Pulse Resp BP Pulse Ox O2 Del Method O2 Flow Rate 98.9 F 64 14 131/53 H 93 Nasal Cannula 2 10/30/22 08:08 10/30/22 08:08 10/30/22 08:08 10/30/22 08:08 10/30/22 08:08 10/30/22 08:08 10/30/22 10:11 Oxygen Flow Rate (L/min) 2 Oxygen Delivery Method Nasal Cannula Weight: 183 lb 3.266 oz Body Mass Index (BMI) 24.8 Intake & Output: Intake and Output for Last 24 Hours 10/28/22 10/29/22 10/30/22 23:59 23:59 23:59 Intake Total 1000 / 1120 220 / 220 Output Total 150 / 150 600 / 1400 1200 / 1200 Balance -150 / -150 400 / -280 -980 / -980 Lab / Micro Data 10/29/22 05:55 10/29/22 05:55 Labs: Laboratory Results - last 24 hr 10/28/22 18:40: Diff Path Review Reviewed 10/29/22 05:55: Diff Path Review Reviewed 10/30/22 08:04: POC Glucose 149 H Micro: Microbiology 10/28/22 18:50 Nasal Secretion SARS-CoV-2 & FLU Antigen (Rapid) - Final Physical Exam Narrative Seen and examined. Patient has low-grade fever Tmax 100.8 Fahrenheit last night about 9 PM. Patient usually spikes fever late evening and night in Quotidian pattern. Denies focal symptoms of infection. Patient does not look septic/toxic. Patient treated stroke with left-sided hemiparesis and facial weakness, dysphagia/dysarthria in December 2020. Physical exam General: Alert, Oriented x3, Cooperative HEENT: Atraumatic, PERRLA, EOMI, Normocephalic Oral: Oral mucosa dry. No Gingival or Mucosal Lesions/ Ulcerations/inflammatory lesion or exudate Neck: Supple, No JVD, Negative Carotid Bruits Lungs: Air entry diminished in bilateral lung bases. No crepitation/rhonchi Cardiovascular: Regular rate, Regular Rhythm, Normal S1, Normal S2, No murmurs Abdomen: Bowel Sounds Present, Soft, Non Tender, Non-Distended : No dysuria or new lower urinary tract symptoms. No renal angle tenderness. No suprapubic tenderness. Extremities: No edema, Capillary Refill Less than 3 Seconds Skin: No rashes, No breakdown Musculoskeletal: No Tenderness to Palpation of Joints or Extremities Neurological: Left-sided facial weakness with left hemiparesis. Left upper extremity strength 1/5. Left lower extremity is improved about 3+/5. Psych/Mental Status: Flat affect Assessment & Plan Assessment/Plan (1) Weakness: (2) Fever: QUALIFIERS: Fever type: unspecified Qualified Code(s): R50.9 - Fever, unspecified (3) Urinary retention: PLAN: Plan Generalized weakness and failure to thrive beyond left-sided weakness since facial paralysis from December 2020 stroke PT and OT to work with patient. Case management consult. Fever and leukocytosis, etiology unclearquotidian pattern: Patient was admitted lysed weakness and fatigue. Possibility of viral fever.Liver chemistry not elevated. ESR and CRP ordered. Mild leukocytosis. Labs ordered. Empirically IV ceftriaxone added. Patient denies focal symptoms of URI including cough, sore throat, postnasal drip or allergic symptoms. Patient denies abdominal pain, chest pain or shortness of breath. No alteration of bowel habit. No new symptoms including dysuria and genitourinary symptoms. Patient denies any contact with sick person. Etiology unclear. Urinalysis unremarkable. Chest x-ray initially reviewed and does not show acute infiltrate but small left pleural effusion. Blood cultures x2 and urine culture has been sent from ED. Reports pain Urinary urgency/BPH continue finasteride as patient weakness may not be secondary to finasteride. His fever and leukocytosis may be accounting for his weakness. Flomax ordered. Hypoxia/obstructive sleep apnea BiPAP continued Recurrent left pleural effusion, hypertension, peripheral vascular disease, dyslipidemia and polyneuropathy and right-sided stroke in December 2020: Patient on amlodipine, baby aspirin, Plavix, ezetimibe, gabapentin, carvedilol, Lasix and losartan. Mild hypokalemia potassium added. Diabetes mellitus type 2: Patient is on insulin. Glucoses controlled DVT prophylaxis subcutaneous Lovenox ordered. Active Medications Acetaminophen (Acetaminophen 325 Mg Tablet) 650 mg PO Q6H PRN PRN PRN Reason: fever of 100.7 F, pain 1-10 Last Admin: 08/18/23 20:59 Dose: 650 mg Amlodipine Besylate (Amlodipine 10 Mg Tablet) 10 mg PO DAILY [facility] Last Admin: 10/29/22 11:03 Dose: 10 mg Aspirin (Aspirin 81 Mg Tab.Chew) 81 mg PO BREAKFAST [facility] Last Admin: 10/30/22 08:20 Dose: 81 mg Carvedilol (Carvedilol 6.25 Mg Tablet) 6.25 mg PO BIDCM [facility] Last Admin: 10/30/22 08:21 Dose: 6.25 mg Clonidine (Clonidine Hcl 0.1 Mg Tablet) 0.1 mg PO BID [facility] Last Admin: 10/29/22 22:29 Dose: 0.1 mg Clopidogrel Bisulfate (Clopidogrel Bisulfate 75 Mg Tablet) 75 mg PO DAILY [facility] Last Admin: 10/29/22 11:03 Dose: 75 mg Doxazosin Mesylate (Doxazosin 4 Mg Tablet) 8 mg PO QHS [facility] Last Admin: 10/29/22 22:30 Dose: 8 mg Ezetimibe (Ezetimibe 10 Mg Tablet) 10 mg PO QHS [facility] Last Admin: 10/29/22 22:31 Dose: 10 mg Enoxaparin Sodium (Enoxaparin 40 Mg/0.4 Ml Syringe) 40 mg SC DAILY [facility] Last Admin: 10/29/22 11:03 Dose: 40 mg Furosemide (Furosemide 40 Mg Tablet) 40 mg PO DAILY [facility] Last Admin: 10/29/22 11:02 Dose: 40 mg Gabapentin (Gabapentin 300 Mg Capsule) 300 mg PO 2100 [facility] Last Admin: 10/29/22 22:24 Dose: 300 mg Gabapentin (Gabapentin 100 Mg Capsule) 100 mg PO BIDCM [facility] Last Admin: 10/30/22 08:23 Dose: 100 mg Hydralazine HCl (Hydralazine 25 Mg Tablet) 75 mg PO TID [facility] Last Admin: 10/30/22 06:46 Dose: 75 mg Sodium Chloride () 250 mls @ 15 mls/hr IV .[id number] PRN PRN Reason: Additional IVPB Infusion Sodium Chloride () 250 mls @ 15 mls/hr IV .[id number] PRN PRN Reason: Saline Flush Ceftriaxone Sodium (Rocephin) 1 gm in 50 mls @ 100 mls/hr IV Q24 [facility] Insulin Glargine (Insulin Glargine-Yfgn 100 Unit/Ml Pen) 14 unit SC DAILY@0700 [facility] Last Admin: 10/30/22 08:15 Dose: 14 unit Insulin Human Lispro (Insulin Lispro 100 Unit/Ml Insuln.Pen) 4 unit SC TIDAC [facility] Last Admin: 10/30/22 08:13 Dose: 4 units Latanoprost (Latanoprost 0.005% 1 Bottle) 1 drp EACH EYE [facility] Last Admin: 10/29/22 22:30 Dose: 1 drp Losartan Potassium (Losartan Potassium 25 Mg Tablet) 25 mg PO DAILY [facility] Last Admin: 10/29/22 11:02 Dose: 25 mg Melatonin (Melatonin 3 Mg Tablet) 3 mg PO QHS PRN PRN PRN Reason: INSOMNIA Multivitamins/Minerals (Multivitamins,Ther W-Minerals Tablet) [facility] Admin: 10/30/22 08:21 Dose: 1 tablet Ondansetron HCl (Ondansetron 4 Mg/2 Ml Vial) 4 mg IV Q8H PRN PRN PRN Reason: NAUSEA/VOMITING Potassium Chloride (Potassium Chloride Oral Tablet 20 Meq) 40 meq [facility] Stop: 11/01/22 10:31 Pramipexole Dihydrochloride (Pramipexole Di-Hcl 0.125 Mg Tablet) [facility] Last Admin: 10/29/22 22:28 Dose: 0.125 mg Senna/Docusate Sodium (Senna/Docusate Sodium 1 Tablet) 2 tablet PO BID PRN PRN PRN Reason: Constipation Sertraline HCl (Sertraline 50 Mg Tablet) 50 mg PO QHS [facility] Last Admin: 10/29/22 22:30 Dose: 50 mg Sodium Chloride (0.9% Saline Lock 10 Ml Syringe) 10 - 40 ml IV UD PRN PRN Reason: SALINE FLUSH Sodium Chloride (0.9% Saline Lock 10 Ml Syringe) 10 - 40 ml IV UD PRN PRN Reason: SALINE FLUSH Tamsulosin HCl (Tamsulosin Hcl 0.4 Mg Capsule) 0.4 mg PO DAILY@1730 [facility] Last Admin: 10/29/22 17:30 Dose: 0.4 mg Charges/Coding Visit Charges Inpatient E&M: 36315 Subs Hosp L2
[2022-10-30] MEDS: Ceftriaxone 1 GM/50 ML BAG IV (10:35)
[2022-10-30] MEDS: Losartan Potassium 25 MG Tablet PO (10:36)
[2022-10-30] MEDS: cloNIDine HCl 0.1 MG Tablet PO (10:36)
[2022-10-30] MEDS: Enoxaparin 40 MG/0.4 ML Syringe SC (10:36)
[2022-10-30] MEDS: Furosemide 40 MG Tablet PO (10:36)
[2022-10-30] MEDS: Clopidogrel Bisulfate 75 MG Tablet PO (10:37)
[2022-10-30] MEDS: amLODIPine 10 MG Tablet PO (10:37)
[2022-10-30 11:29] LABS: Absolute Lymphocyte Count 0.72 X10^3/uL (0.83-4.51); Absolute Neutrophil Count 11.6 X10^3/uL (2.0-7.7); Basophil# 0.07 X10^3/uL; Basophil% 0.5 % (0-1); Eosinophil# 0.16 X10^3/uL; Eosinophils% 1.1 % (0-5); Hemoglobin 9.4 g/dL (13.0-16.5); Lymphocyte # 0.72 X10^3/ul (0.83-4.51); Lymphocyte % 5.2 % (19-41); Mean Corp Hgb Conc 32.4 g/dL (32-36); Mean Corpuscular Hgb 29.9 pg (27.0-32.0); Mean Corpuscular Volume 92.4 fL (80-94); Mean Platelet Vol. 10.6 fl (6.2-12.0); Monocyte# 1.28 X10^3/uL; Monocyte% 9.2 % (0-10); NRBC Flagged by Analyzer 0 % (0-5); Neutrophil # 11.64 X10^3/uL (2.7-7.7); Neutrophil % 83.2 % (47-70); Platelet Count 199 K/mm3 (150-450); RBC Distribution Width CV 14.8 % (11.6-14.6); Red Blood Count 3.14 M/mm3 (4.6-6.2)
[2022-10-30] MEDS: Potassium Chloride Oral Tablet 20 MEQ 40 MEQ PO (11:40)
[2022-10-30 11:57] LABS: ALB/GLOB Ratio 0.7 RATIO (0.9-2.4); AST(SGOT) 7 U/L (15-37); Alanine Aminotransfer ALT/SGPT 10 U/L (16-61); Albumin, Serum 2.5 g/dL (3.2-5.0); Alkaline Phosphatase 57 U/L (45-117); Anion Gap 7 (5-15); BUN 39 mg/dL (7-18); BUN/Creat Ratio 17.3 RATIO (10-20); Calcium,Total 8.5 mg/dL (8.5-10.1); Chloride 105 mmol/L (98-107); Creatinine, Serum 2.26 mg/dL (0.70-1.30); EST Glomerular Filtration Rate 30 mL/min (>60); Est Glom Filt Rate - Afr Amer 36 mL/min (>60); Estimated Creatinine Clearance 27.18 ml/min; Globulin 3.7 g/dL (2.2-4.2); Glucose 273 mg/dL (74-106); Potassium 3.3 mmol/L (3.5-5.1); Protein, Total 6.2 g/dL (6.4-8.2); Sodium Level 140 mmol/L (136-145)
[2022-10-30 12:04] LABS: Bedside Glucose 259 mg/dL (74-106)
[2022-10-30 15:24] LABS: Bedside Glucose 162 mg/dL (74-106)
[2022-10-30] MEDS: Tamsulosin HCl 0.4 MG Capsule PO (17:08)
[2022-10-30] MEDS: Gabapentin 300 MG Capsule PO (20:50)
[2022-10-30] MEDS: Ezetimibe 10 MG Tablet PO (20:50)
[2022-10-30] MEDS: Senna/Docusate Sodium 1 Tablet 2 TABLET PO (20:50)
[2022-10-30] MEDS: Doxazosin 4 MG Tablet 8 MG PO (20:52)
[2022-10-30] MEDS: Latanoprost 0.005% 1 Bottle 1 DRP EACH EYE (20:52)
[2022-10-30] MEDS: Pramipexole Di-HCl 0.125 MG Tablet PO (20:52)
[2022-10-30] MEDS: Sertraline 50 MG Tablet PO (20:53)
[2022-10-30 23:37] LABS: Bedside Glucose 208 mg/dL (74-106)
[2022-10-31] VITALS (8 sets, daily range): BP systolic 120–139; BP diastolic 52–61; PULSE 58–69; RESP 14–18; TEMP 36.8–37.7; O2SAT 91–99
[2022-10-31 04:11] LABS: Absolute Lymphocyte Count 0.86 X10^3/uL (0.83-4.51); Absolute Neutrophil Count 9.3 X10^3/uL (2.0-7.7); Basophil# 0.07 X10^3/uL; Basophil% 0.6 % (0-1); Eosinophil# 0.31 X10^3/uL; Eosinophils% 2.6 % (0-5); Hematocrit 25.8 % (40-54); Hemoglobin 8.4 g/dL (13.0-16.5); Lymphocyte # 0.86 X10^3/ul (0.83-4.51); Lymphocyte % 7.1 % (19-41); Mean Corp Hgb Conc 32.6 g/dL (32-36); Mean Corpuscular Hgb 30.3 pg (27.0-32.0); Mean Corpuscular Volume 93.1 fL (80-94); Monocyte# 1.44 X10^3/uL; Monocyte% 11.9 % (0-10); NRBC Flagged by Analyzer 0 % (0-5); Neutrophil # 9.26 X10^3/uL (2.7-7.7); Neutrophil % 76.7 % (47-70); Platelet Count 214 K/mm3 (150-450); RBC Distribution Width CV 14.8 % (11.6-14.6); RBC Distribution Width SD 49.7 fl (35.1-43.9); Red Blood Count 2.77 M/mm3 (4.6-6.2); White Blood Count 12.1 K/mm3 (4.4-11.0)
[2022-10-31 04:24] LABS: Anion Gap 9 (5-15); BUN 47 mg/dL (7-18); BUN/Creat Ratio 20.4 RATIO (10-20); Calcium,Total 8.4 mg/dL (8.5-10.1); Chloride 106 mmol/L (98-107); EST Glomerular Filtration Rate 29 mL/min (>60); Est Glom Filt Rate - Afr Amer 35 mL/min (>60); Estimated Creatinine Clearance 26.71 ml/min; Glucose 185 mg/dL (74-106); Potassium 3.8 mmol/L (3.5-5.1); Sodium Level 142 mmol/L (136-145)
[2022-10-31 08:32] LABS: Bedside Glucose 163 mg/dL (74-106)
[2022-10-31] MEDS: Insulin Glargine-YFGN 100 UNIT/ML Pen 14 UNIT SC (08:33)
[2022-10-31] MEDS: Insulin Lispro 100 UNIT/ML INSULN.PEN SC ×3 (08:33→16:37)
[2022-10-31] MEDS: Ceftriaxone 1 GM/50 ML BAG IV (09:55)
[2022-10-31] MEDS: Aspirin 81 MG TAB.CHEW PO (10:05)
[2022-10-31] MEDS: Carvedilol 6.25 MG Tablet PO ×2 (10:06→16:37)
[2022-10-31] MEDS: Potassium Chloride Oral Tablet 20 MEQ 40 MEQ PO (10:06)
[2022-10-31] MEDS: amLODIPine 10 MG Tablet PO (10:06)
[2022-10-31] MEDS: Losartan Potassium 25 MG Tablet PO (10:06)
[2022-10-31] MEDS: Gabapentin 100 MG Capsule PO ×2 (10:06→16:37)
[2022-10-31] MEDS: cloNIDine HCl 0.1 MG Tablet PO ×2 (10:06→23:24)
[2022-10-31] MEDS: Enoxaparin 30 MG/0.3 ML Syringe SC (10:06)
[2022-10-31] MEDS: Clopidogrel Bisulfate 75 MG Tablet PO (10:06)
[2022-10-31] MEDS: Multivitamins,Ther W-Minerals Tablet 1 TABLET PO (10:06)
--- NOTE | 2022-10-31 10:36 | PN.HOSP_ITS ---
Reason for Visit Reason for Visit: Diagnoses Retention of urine, unspecified (10/29/22) Fever, unspecified (10/29/22) Weakness (10/29/22) Objective Data Objective Data Vital Signs: Vital Signs Temp Pulse Resp BP Pulse Ox O2 Del Method O2 Flow Rate 98.9 F 62 14 120/60 98 Nasal Cannula 2 10/31/22 10:08 10/31/22 10:08 10/31/22 10:08 10/31/22 10:08 10/31/22 10:08 10/31/22 10:08 10/31/22 10:08 Oxygen Flow Rate (L/min) 2 Oxygen Delivery Method Nasal Cannula Weight: 183 lb 3.266 oz Body Mass Index (BMI) 24.8 Intake & Output: Intake and Output for Last 24 Hours 10/29/22 10/30/22 10/31/22 23:59 23:59 23:59 Intake Total 1000 / 1120 670 / 770 250 / 250 Output Total 600 / 1400 1750 / 1950 700 / 700 Balance 400 / -280 -1080 / -1180 -450 / -450 Lab / Micro Data 10/31/22 03:50 10/31/22 03:50 Labs: Laboratory Results - last 24 hr 10/30/22 11:15: WBC 14.0 H, RBC 3.14 L, Hgb 9.4 L, Hct 29.0 L, MCV 92.4, MCH 29.9, MCHC 32.4, RDW Std Deviation 50.0 H, RDW Coeff of Cait 14.8 H, Plt Count 1 99, MPV 10.6, Immature Gran % (Auto) 0.800, Neut % (Auto) 83.2 H, Lymph % (Auto) 5.2 L, [place] % (Auto) 9.2, Eos % (Auto) 1.1, Baso % (Auto) 0.5, Absolute Neuts (auto) 11.6 H, Absolute Lymphs (auto) 0.72 L, Nucleated RBC % 0, Sodium 140, Potassium 3.3 L, Chloride 105, Carbon Dioxide 28.0, Anion Gap 7, BUN 39 H, Creatinine 2.26 H, Estim Creat Clear Calc 27.18, Est GFR (MDRD) Af Amer 36 L, Est GFR (MDRD) Non-Af 30 L, BUN/Creatinine Ratio 17.3, Glucose 273 H, Calcium 8.5, Total Bilirubin 0.40, AST 7 L, ALT 10 L, Alkaline Phosphatase 57, Total Protein 6.2 L, Albumin 2.5 L, Globulin 3.7, Albumin/Globulin Ratio 0.7 L 10/30/22 11:37: POC Glucose 259 H 10/30/22 15:05: POC Glucose 162 H 10/30/22 20:58: POC Glucose 208 H 10/31/22 03:50: WBC 12.1 H, RBC 2.77 L, Hgb 8.4 L, Hct 25.8 L, MCV 93.1, MCH 30.3, MCHC 32.6, RDW Std Deviation 49.7 H, RDW Coeff of Cait 14.8 H, Plt Count 214, MPV 11.0, Immature Gran % (Auto) 1.100 H, Neut % (Auto) 76.7 H, Lymph % (Auto) 7.1 L, [place] % (Auto) 11.9 H, Eos % (Auto) 2.6, Baso % (Auto) 0.6, Absolute Neuts (auto) 9.3 H, Absolute Lymphs (auto) 0.86, Nucleated RBC % 0, Sodium 142, Potassium 3.8, Chloride 106, Carbon Dioxide 27.0, Anion Gap 9, BUN 47 H, Creatinine 2.30 H, Estim Creat Clear Calc 26.71, Est GFR (MDRD) Af Amer 35 L, Est GFR (MDRD) Non-Af 29 L, BUN/Creatinine Ratio 20.4 H, Glucose 185 H, Calcium 8.4 L 10/31/22 08:11: POC Glucose 163 H Micro: Microbiology 10/28/22 19:34 Urine, Clean Catch Urine Culture - Final Culture exhibits no growth. 10/28/22 18:50 Nasal Secretion SARS-CoV-2 & FLU Antigen (Rapid) - Final Physical Exam Narrative Seen and examined. On 10/31, at 3 AM low-grade fever 99.8 Fahrenheit. Patient treated stroke with left-sided hemiparesis and facial weakness, dysphagia/dysarthria in December 2020. Patient states he moved bowel yesterday. He felt initially that was stuck in the back but later on he was able to move it. He was very thankful. He slept well. No acute issues overnight. Physical exam General: Alert, Oriented x3, Cooperative HEENT: Atraumatic, PERRLA, EOMI, Normocephalic Oral: Oral mucosa moist. No Gingival or Mucosal Lesions/ Ulcerations/inflammatory lesion or exudate Neck: Supple, No JVD, Negative Carotid Bruits Lungs: Air entry diminished in bilateral lung bases. No crepitation/rhonchi Cardiovascular: Regular rate, Regular Rhythm, Normal S1, Normal S2, No murmurs Abdomen: Bowel Sounds Present, Soft, Non Tender, Non-Distended : No dysuria or new lower urinary tract symptoms. No renal angle tenderness. No suprapubic tenderness. Extremities: No edema, Capillary Refill Less than 3 Seconds Skin: No rashes, No breakdown Musculoskeletal: No Tenderness to Palpation of Joints or Extremities Neurological: Left-sided facial weakness with left hemiparesis. Left upper extremity strength 1/5 with contracture at wrist, elbow and shoulder joints. Left lower extremity is improved about 3+/5. Mild dysarthria. Psych/Mental Status: Flat affect Assessment & Plan Assessment/Plan (1) Weakness: (2) Fever: QUALIFIERS: Fever type: unspecified Qualified Code(s): R50.9 - Fever, unspecified (3) Urinary retention: PLAN: Plan Generalized weakness and failure to thrive beyond left-sided weakness since facial paralysis from December 2020 stroke PT and OT to work with patient. Case management consult. Fever and leukocytosis, etiology unclearquotidian pattern: Patient was admitted lysed weakness and fatigue. Possibility of viral fever.Liver chemistry not elevated. ESR and CRP ordered. Mild leukocytosis. Labs ordered. Empirically IV ceftriaxone added. Patient denies focal symptoms of URI including cough, sore throat, postnasal drip or allergic symptoms. Patient denies abdominal pain, chest pain or shortness of breath. No alteration of bowel habit. No new symptoms including dysuria and genitourinary symptoms. Patient denies any contact with sick person. Etiology unclear. Urinalysis unremarkable. Chest x-ray initially reviewed and does not show acute infiltrate but small left pleural effusion. Blood cultures x2 and urine culture has been sent from ED. Reports pain 10/31 urine culture shows no growth. Blood cultures x2 also pending since 10/28. If cultures are negative antibiotic can be discontinued. Urinary urgency/BPH continue finasteride as patient weakness may not be secondary to finasteride. His fever and leukocytosis may be accounting for his weakness. Flomax ordered. Hypoxia/obstructive sleep apnea BiPAP continued Recurrent left pleural effusion, hypertension, peripheral vascular disease, dyslipidemia and polyneuropathy and right-sided stroke in December 2020: Patient on amlodipine, baby aspirin, Plavix, ezetimibe, gabapentin, carvedilol, Lasix and losartan. Mild hypokalemia potassium added. Diabetes mellitus type 2: Patient is on insulin. Glucoses controlled CKD stage IV: Patient admitted with BUNs/creatinine at his baseline is around 2.0-2.3. His creatinine increased from 1.7-2.26. Hold Lasix and lisinopril. Monitor kidney function. Acute on chronic anemia: Patient baseline hemoglobin is 10.5. It dropped from 10.5-8.4. We will hold Lovenox. Patient on baby aspirin and Plavix. For now continue baby aspirin and Plavix. Hypertension: Blood pressure is in normal range. His blood pressure ranged from 122- 145 mmHg. Patient on amlodipine and clonidine with holding parameters. DVT prophylaxis: Because of severe anemia, Lovenox discontinued. Continue BB and aspirin and monitor CBC daily. Charges/Coding Visit Charges Inpatient E&M: 24585 Subs Hosp L2
[2022-10-31 12:12] LABS: Bedside Glucose 220 mg/dL (74-106)
[2022-10-31] MEDS: Tamsulosin HCl 0.4 MG Capsule PO (16:37)
[2022-10-31 16:39] LABS: Bedside Glucose 309 mg/dL (74-106)
[2022-10-31] MEDS: Doxazosin 4 MG Tablet 8 MG PO (23:22)
[2022-10-31] MEDS: Gabapentin 300 MG Capsule PO (23:22)
[2022-10-31] MEDS: hydrALAZINE 25 MG Tablet 75 MG PO (23:24)
[2022-10-31] MEDS: Ezetimibe 10 MG Tablet PO (23:24)
[2022-10-31] MEDS: Pramipexole Di-HCl 0.125 MG Tablet PO (23:24)
[2022-10-31] MEDS: Sertraline 50 MG Tablet PO (23:26)
[2022-10-31] MEDS: Latanoprost 0.005% 1 Bottle 1 DRP EACH EYE (23:26)
[2022-10-31 23:53] LABS: Bedside Glucose 243 mg/dL (74-106)
[2022-11-01] VITALS (10 sets, daily range): BP systolic 118–134; BP diastolic 46–55; PULSE 53–60; RESP 16–18; TEMP 36.4–37.2; O2SAT 93–99
[2022-11-01 05:45] LABS: Absolute Neutrophil Count 5.7 X10^3/uL (2.0-7.7); Basophil# 0.07 X10^3/uL; Basophil% 0.7 % (0-1); Eosinophil# 0.79 X10^3/uL; Eosinophils% 8.2 % (0-5); Hematocrit 27.9 % (40-54); Hemoglobin 9.3 g/dL (13.0-16.5); Lymphocyte % 17.5 % (19-41); Mean Corp Hgb Conc 33.3 g/dL (32-36); Mean Corpuscular Hgb 30.7 pg (27.0-32.0); Mean Corpuscular Volume 92.1 fL (80-94); Mean Platelet Vol. 10.9 fl (6.2-12.0); Monocyte# 1.37 X10^3/uL; Monocyte% 14.1 % (0-10); NRBC Flagged by Analyzer 0 % (0-5); Neutrophil # 5.68 X10^3/uL (2.7-7.7); Neutrophil % 58.7 % (47-70); Platelet Count 228 K/mm3 (150-450); RBC Distribution Width CV 14.7 % (11.6-14.6); Red Blood Count 3.03 M/mm3 (4.6-6.2); White Blood Count 9.7 K/mm3 (4.4-11.0)
[2022-11-01 06:27] LABS: Anion Gap 5 (5-15); BUN 46 mg/dL (7-18); BUN/Creat Ratio 22.8 RATIO (10-20); Calcium,Total 8.2 mg/dL (8.5-10.1); Chloride 107 mmol/L (98-107); Creatinine, Serum 2.02 mg/dL (0.70-1.30); EST Glomerular Filtration Rate 34 mL/min (>60); Est Glom Filt Rate - Afr Amer 41 mL/min (>60); Estimated Creatinine Clearance 30.41 ml/min; Glucose 164 mg/dL (74-106); Potassium 3.8 mmol/L (3.5-5.1); Sodium Level 139 mmol/L (136-145)
--- NOTE | 2022-11-01 06:53 | PCM.PN.HOSP ---
Reason for Visit Reason for Visit: Diagnoses Retention of urine, unspecified (10/29/22) Fever, unspecified (10/29/22) Weakness (10/29/22) Subjective Subjective Patient with no acute events overnight per self and per nursing report. Patient notes feeling improved since initial ED evaluation. He is frustrated that there is no specific etiology for his initial presentation and low-grade temperatures as well as general malaise and fatigue. Discussed plan of care which included de-escalation off antibiotic therapy given cultures are negative but given inflammatory markers elevated and unclear specific etiology for his presentation infectious disease involvement requested. Patient denies fevers, chills, nausea, emesis, abdominal pain, chest pain or dyspnea. Objective Data Objective Data Physical Examination: General: Awake, alert, oriented x 3 and cooperative, seated upright in PCU bedside chair, mildly fatigued otherwise no acute distress. Skin: Normal color, normal turgor, no icterus, no cyanosis. HEENT: AT/NC, EOMI, PERRLA, MMM. Lungs: Mild diminished, greater bases, left greater than right, appropriate effort, no rales, ronchi or wheezing. Heart: Bradycardic with regular rhythm; no gallop, rub audible. Abdomen: Soft, NTTP, ND, normal BS. Extremities: No cyanosis, clubbing, or edema. Neurological: Patient awake, alert, oriented as noted, cognitive function intact; pupils equally reactive to light and accommodation, cranial nerves II-XII grossly normal, moving all 4 extremities, no focal deficits, strength improved, mildly to moderately global decrease. Psychiatric: Affect appears normal, no acute evidence of depressive or anxiety feelings. Vital Signs: Vital Signs Temp Pulse Resp BP Pulse Ox O2 Del Method O2 Flow Rate 98.0 F 59 L 16 122/50 H 93 Nasal Cannula 2 11/01/22 05:17 11/01/22 05:18 11/01/22 05:17 11/01/22 05:18 11/01/22 05:17 11/01/22 05:17 11/01/22 05:17 Oxygen Flow Rate (L/min) 2 Oxygen Delivery Method Nasal Cannula Weight: 183 lb 3.266 oz Body Mass Index (BMI) 24.8 Intake & Output: Intake and Output for Last 24 Hours 10/30/22 10/31/22 11/01/22 23:59 23:59 23:59 Intake Total 670 / 770 850 / 1000 400 / 400 Output Total 1750 / 1950 1200 / 1500 500 / 500 Balance -1080 / -1180 -350 / -500 -100 / -100 Lab / Micro Data 11/01/22 05:05 11/01/22 05:05 Labs: Laboratory Results - last 24 hr 10/31/22 08:11: POC Glucose 163 H 10/31/22 11:51: POC Glucose 220 H 10/31/22 15:11: POC Glucose 309 H 10/31/22 21:20: POC Glucose 243 H 11/01/22 05:05: WBC 9.7, RBC 3.03 L, Hgb 9.3 L, Hct 27.9 L, MCV 92.1, MCH 30.7, MCHC 33.3, RDW Std Deviation 50.0 H, RDW Coeff of Cait 14.7 H, Plt Count 228, MPV 10.9, Immature Gran % (Auto) 0.800, Neut % (Auto) 58.7, Lymph % (Auto) 17.5 L, [place] % (Auto) 14.1 H, Eos % (Auto) 8.2 H, Baso % (Auto) 0.7, Absolute Neuts (auto) 5.7, Absolute Lymphs (auto) 1.70, Nucleated RBC % 0, Sodium 139, Potassium 3.8, Chloride 107, Carbon Dioxide 27.0, Anion Gap 5, BUN 46 H, Creatinine 2.02 H, Estim Creat Clear Calc 30.41, Est GFR (MDRD) Af Amer 41 L, Est GFR (MDRD) Non-Af 34 L, BUN/Creatinine Ratio 22.8 H, Glucose 164 H, Calcium 8.2 L Micro: Microbiology 10/28/22 18:50 Blood Culture (Wb) - Right Hand Blood Culture - Preliminary No growth in 48 hours. 10/28/22 18:40 Blood Culture (Wb) - Anticubital Right Blood Culture - Preliminary No growth in 48 hours. 10/28/22 19:34 Urine, Clean Catch Urine Culture - Final Culture exhibits no growth. 10/28/22 18:50 Nasal Secretion SARS-CoV-2 & FLU Antigen (Rapid) - Final Assessment & Plan Assessment/Plan (1) Fever: QUALIFIERS: Fever type: unspecified Qualified Code(s): R50.9 - Fever, unspecified PLAN: Plan The patient is an 82 y/o F w/ PMHx: CKD stage IV, Hx CVA with residual left-sided weakness/facial droop, HTN, HLD, JOHN on BIPAP, Diabetes mellitus type II with chronic neuropathy, Chronic anemia, RLS, Hx R renal artery stenosis s/p PCI who presents to the [facility] ED on 10/28/22 with history of increased weakness and fatigue unable to even get up from his bed incidentally noted to have been started on finasteride the day prior for BPH with reported chills but no fevers however he was noted to be low-grade upon ED presentation as well as mild hypoxia prompting further evaluation. #1. Adult FTT, Fatigue, Malaise, FUO possibly secondary to Viral etiology: Initial ED evaluation with CBC with WBC 14.4 with left shift, urine culture with no growth, rapid SARS COVID influenza antigen negative, blood culture x2 with no growth, will obtain full respiratory viral panel as well as COVID PCR to be cautious, CRP and ESR obtained with ESR 68 and CRP 97.10, procalcitonin also obtained and noted to be 0.14, but again blood culture and urine cultures are negative at this time, will request infectious disease evaluation to be cautious however will de-escalate off empiric Rocephin is unclear as to what we are treating. PT/OT/case management consulted and following, currently awaiting precertification for skilled facility transition. #2. Chronic normocytic anemia: Admission hemoglobin 10.9, baseline has been 8-9, trending now more that normal range, 11/01/2022 hemoglobin 9.3, guaiac ordered per prior physician and is pending as patient is on dual antiplatelet therapy but no obvious GI bleed #3. Hypertension: Continue home regimen including Norvasc, clonidine, Cardura, Lasix, losartan, PRN hydralazine. #4. Hyperlipidemia: We will continue patient home Zetia regimen, not on statin, defer to outpatient, #5. Diabetes mellitus type II with chronic neuropathy: Hold oral home regimen, continue home insulin regimen, ADA diet, accu checks w/ ISS, continue patient home chronic gabapentin regimen. #6. History CVA: Patient with history of stroke with chronic left-sided hemiplegia/facial droop, continue patient home aspirin, Plavix, Zetia as patient has myalgias with statin therapy per allergy listed, hypertensive regimen is noticeable diabetic regimen with alterations as noted. #7. CKD stage IV: Admission BUN/creatinine 33/1.70, baseline creatinine noted primarily 1.6-2.2, 11/01/2022 BUN/creatinine 46/2.02, continue to trend #8. Chronic recurrent left-sided pleural effusion: Continue patient home Lasix oral regimen, encourage out of bed and I-S. As noted #1 with no obvious source and patient does only have a small left pleural effusion but awaiting infectious disease input given increased inflammatory markers despite negative cultures. May require further imaging to evaluate if this could be the source of his fever #9. History of renal artery stenosis: Status post PCI, continue aspirin, Plavix, Zetia as statin intolerance noted, hypertensive regimen as well as diabetic regimen as noted. #10. Restless leg syndrome: We will continue patient home Mirapex regimen. #11. BPH: We will continue patient home Flomax regimen. Had recently been initiated on finasteride but this was until his Flomax was reinitiated as he had been out. #12. JOHN: BIPAP q HS. #13. DVT prophylaxis: Had been on lovenox but this was d/c secondary to Hgb concerns prior. #14. CODE status: Full Code. Charges/Coding Visit Charges Inpatient E&M: 58157 Subs Hosp L2
[2022-11-01 08:49] LABS: Bedside Glucose 171 mg/dL (74-106)
[2022-11-01] MEDS: Gabapentin 100 MG Capsule PO ×2 (09:30→17:18)
[2022-11-01] MEDS: Multivitamins,Ther W-Minerals Tablet 1 TABLET PO (09:30)
[2022-11-01] MEDS: Insulin Lispro 100 UNIT/ML INSULN.PEN SC ×3 (09:30→17:20)
[2022-11-01] MEDS: Insulin Glargine-YFGN 100 UNIT/ML Pen 14 UNIT SC (09:31)
[2022-11-01] MEDS: Aspirin 81 MG TAB.CHEW PO (09:32)
[2022-11-01] MEDS: Potassium Chloride Oral Tablet 20 MEQ 40 MEQ PO (09:33)
[2022-11-01] MEDS: amLODIPine 10 MG Tablet PO (09:34)
[2022-11-01] MEDS: Clopidogrel Bisulfate 75 MG Tablet PO (09:34)
--- NOTE | 2022-11-01 10:06 | CASEMGMT ---
Social Work SW performed chart review, HCPOA and LW on file as of 2007 and again in 2021. Patient's identified HCPOA are Abigail burleson, and alternates are patient's daughter's Jimena Peralta and Jennifer Varner TRUCK CLEANER, CHEMISTRY TECHNICIAN
[2022-11-01 10:10] LABS: Procalcitonin 0.14 ng/mL (0.00-0.09)
[2022-11-01 10:37] LABS: Erythrocyte Sedimentation Rate 68 mm/hr (0-20)
[2022-11-01 11:49] LABS: Bedside Glucose 236 mg/dL (74-106)
[2022-11-01] MEDS: Tamsulosin HCl 0.4 MG Capsule PO (17:18)
[2022-11-01 18:01] LABS: Bedside Glucose 219 mg/dL (74-106)
[2022-11-01] MEDS: Gabapentin 300 MG Capsule PO (20:09)
[2022-11-01] MEDS: Ezetimibe 10 MG Tablet PO (22:01)
[2022-11-01] MEDS: Doxazosin 4 MG Tablet 8 MG PO (22:01)
[2022-11-01] MEDS: Latanoprost 0.005% 1 Bottle 1 DRP EACH EYE (22:01)
[2022-11-01] MEDS: Sertraline 50 MG Tablet PO (22:02)
[2022-11-01] MEDS: Pramipexole Di-HCl 0.125 MG Tablet PO (22:02)
[2022-11-02] VITALS (12 sets, daily range): BP systolic 124–148; BP diastolic 50–68; PULSE 49–66; RESP 16–18; TEMP 36.2–37.3; O2SAT 93–99
[2022-11-02 05:23] LABS: Absolute Lymphocyte Count 1.38 X10^3/uL (0.83-4.51); Absolute Neutrophil Count 8.6 X10^3/uL (2.0-7.7); Basophil# 0.08 X10^3/uL; Basophil% 0.7 % (0-1); Eosinophil# 0.49 X10^3/uL; Hematocrit 28.6 % (40-54); Hemoglobin 9.5 g/dL (13.0-16.5); Lymphocyte # 1.38 X10^3/ul (0.83-4.51); Lymphocyte % 11.4 % (19-41); Mean Corp Hgb Conc 33.2 g/dL (32-36); Mean Corpuscular Hgb 30.4 pg (27.0-32.0); Mean Corpuscular Volume 91.7 fL (80-94); Mean Platelet Vol. 10.7 fl (6.2-12.0); Monocyte# 1.46 X10^3/uL; NRBC Flagged by Analyzer 0 % (0-5); Neutrophil # 8.58 X10^3/uL (2.7-7.7); Neutrophil % 70.8 % (47-70); Platelet Count 267 K/mm3 (150-450); RBC Distribution Width CV 14.6 % (11.6-14.6); RBC Distribution Width SD 48.6 fl (35.1-43.9); Red Blood Count 3.12 M/mm3 (4.6-6.2); White Blood Count 12.1 K/mm3 (4.4-11.0)
[2022-11-02 05:49] LABS: ALB/GLOB Ratio 0.6 RATIO (0.9-2.4); AST(SGOT) 17 U/L (15-37); Alanine Aminotransfer ALT/SGPT 26 U/L (16-61); Albumin, Serum 2.5 g/dL (3.2-5.0); Alkaline Phosphatase 67 U/L (45-117); Anion Gap 6 (5-15); BUN 48 mg/dL (7-18); BUN/Creat Ratio 23.2 RATIO (10-20); Calcium,Total 8.6 mg/dL (8.5-10.1); Chloride 106 mmol/L (98-107); Creatinine, Serum 2.07 mg/dL (0.70-1.30); EST Glomerular Filtration Rate 33 mL/min (>60); Est Glom Filt Rate - Afr Amer 40 mL/min (>60); Estimated Creatinine Clearance 29.68 ml/min; Glucose 203 mg/dL (74-106); Potassium 4.7 mmol/L (3.5-5.1); Protein, Total 6.5 g/dL (6.4-8.2); Sodium Level 137 mmol/L (136-145)
--- NOTE | 2022-11-02 06:22 | PCM.PN.HOSP ---
Reason for Visit Reason for Visit: Diagnoses Retention of urine, unspecified (10/29/22) Fever, unspecified (10/29/22) Weakness (10/29/22) Subjective Subjective Patient with no acute events overnight per self per nursing report except did have mild low-grade temperature but not a fever and WBC did rise mildly to 12.1 but patient feels well and again eager for discharge to skilled facility still awaiting insurance allowance/precertification. Patient given discontinuation of antibiotic therapy the day prior and mild low-grade temperature as well as mild WC elevation did have evaluation today by infectious disease and they felt given his negative cultures it was appropriate to continue off antibiotic therapies and continue to monitor. They are amenable for him transitioning to skilled facility repeat labs and ongoing assessment if he obtains a bed. Patient denies fevers, chills, nausea, emesis, abdominal pain, chest pain or dyspnea. Objective Data Objective Data Vital Signs: Vital Signs Temp Pulse Resp BP Pulse Ox O2 Del Method O2 Flow Rate 99.2 F H 66 18 135/50 H 93 Nasal Cannula 2 11/02/22 03:58 11/02/22 03:58 11/02/22 03:58 11/02/22 03:58 11/02/22 03:58 11/02/22 04:00 11/02/22 04:00 Oxygen Flow Rate (L/min) 2 Oxygen Delivery Method Nasal Cannula Weight: 183 lb 3.266 oz Body Mass Index (BMI) 24.8 Intake & Output: Intake and Output for Last 24 Hours 10/31/22 11/01/22 11/02/22 23:59 23:59 23:59 Intake Total 850 / 1000 1640 / 1640 Output Total 1200 / 1500 1800 / 1800 Balance -350 / -500 -160 / -160 Lab / Micro Data 11/02/22 05:02 11/02/22 05:02 Labs: Laboratory Results - last 24 hr 11/01/22 05:05: ESR 68 H, Sodium 139, Potassium 3.8, Chloride 107, Carbon Dioxide 27.0, Anion Gap 5, BUN 46 H, Creatinine 2.02 H, Estim Creat Clear Calc 30.41, Est GFR (MDRD) Af Amer 41 L, Est GFR (MDRD) Non-Af 34 L, BUN/Creatinine Ratio 22.8 H, Glucose 164 H, Calcium 8.2 L, C-React Prot Ext Range 97.10 H, Procalcitonin 0.14 H 11/01/22 08:31: POC Glucose 171 H 11/01/22 11:32: POC Glucose 236 H 11/01/22 16:56: POC Glucose 219 H 11/02/22 05:02: WBC 12.1 H, RBC 3.12 L, Hgb 9.5 L, Hct 28.6 L, MCV 91.7, MCH 30.4, MCHC 33.2, RDW Std Deviation 48.6 H, RDW Coeff of Cait 14.6, Plt Count 267, MPV 10.7, Immature Gran % (Auto) 1.100 H, Neut % (Auto) 70.8 H, Lymph % (Auto) 11.4 L, [place] % (Auto) 12.0 H, Eos % (Auto) 4.0, Baso % (Auto) 0.7, Absolute Neuts (auto) 8.6 H, Absolute Lymphs (auto) 1.38, Nucleated RBC % 0, Sodium 137, Potassium 4.7, Chloride 106, Carbon Dioxide 25.0, Anion Gap 6, BUN 48 H, Creatinine 2.07 H, Estim Creat Clear Calc 29.68, Est GFR (MDRD) Af Amer 40 L, Est GFR (MDRD) Non-Af 33 L, BUN/Creatinine Ratio 23.2 H, Glucose 203 H, Calcium 8.6, Total Bilirubin 0.20, AST 17, ALT 26, Alkaline Phosphatase 67, Total Protein 6.5, Albumin 2.5 L, Globulin 4.0, Albumin/Globulin Ratio 0.6 L Micro: Microbiology 11/01/22 12:45 Mucosa - Nose Coronavirus COVID-19 PCR - Final 11/01/22 12:45 Mucosa - Nose Respiratory Panel (PCR) - Final 10/28/22 18:50 Blood Culture (Wb) - Right Hand Blood Culture - Preliminary No growth in 48 hours. 10/28/22 18:40 Blood Culture (Wb) - Anticubital Right Blood Culture - Preliminary No growth in 48 hours. 10/28/22 19:34 Urine, Clean Catch Urine Culture - Final Culture exhibits no growth. 10/28/22 18:50 Nasal Secretion SARS-CoV-2 & FLU Antigen (Rapid) - Final Physical Exam Narrative Physical Examination: General: Awake, alert, oriented x 3 and cooperative, seated upright in PCU bedside chair, for discharge. Skin: Normal color, normal turgor, no icterus, no cyanosis except for occasional staged ecchymoses likely related with lab draws. HEENT: AT/NC, EOMI, PERRLA, MMM. Lungs: Mild diminished, greater bases, left greater than right, appropriate effort, no rales, ronchi or wheezing. Heart: Bradycardic with regular rhythm; no gallop, rub audible. Abdomen: Soft, NTTP, ND, normal BS. Extremities: No cyanosis, clubbing, or edema. Neurological: Patient awake, alert, oriented as noted, cognitive function intact; pupils equally reactive to light and accommodation, cranial nerves II-XII grossly normal, moving all 4 extremities, no focal deficits, strength improved, mildly to moderately global decrease. Psychiatric: Affect appears normal, no acute evidence of depressive or anxiety feelings. Assessment & Plan Assessment/Plan (1) Fever: QUALIFIERS: Fever type: unspecified Qualified Code(s): R50.9 - Fever, unspecified PLAN: Plan The patient is an 82 y/o F w/ PMHx: CKD stage IV, Hx CVA with residual left-sided weakness/facial droop, HTN, HLD, JOHN on BIPAP, Diabetes mellitus type II with chronic neuropathy, Chronic anemia, RLS, Hx R renal artery stenosis s/p PCI who presents to the [facility] ED on 10/28/22 with history of increased weakness and fatigue unable to even get up from his bed incidentally noted to have been started on finasteride the day prior for BPH with reported chills but no fevers however he was noted to be low-grade upon ED presentation as well as mild hypoxia prompting further evaluation. #1. Adult FTT, Fatigue, Malaise, FUO possibly secondary to Viral etiology: Initial ED evaluation with CBC with WBC 14.4 with left shift, urine culture with no growth, rapid SARS COVID influenza antigen negative, blood culture x2 with no growth, will obtain full respiratory viral panel as well as COVID PCR to be cautious, CRP and ESR obtained with ESR 68 and CRP 97.10, procalcitonin also obtained and noted to be 0.14, but again blood culture and urine cultures are negative at this time, pending infectious disease evaluation to be cautious. 11/01/22 after dose for day d/c IV Rocephin given negative cultures and since d/c low grade T and mild WBC elevation 11/02/22 CBC w/ WBC 12.1 with L shift. Requested repeat 11/02/22 CRP/ESR requested w/ CRP 98.40/ESR 76. To be cautious discussed case and patient was evaluated by infectious disease who remained amenable to patient transitioning off antibiotic therapy and once skilled bed available to transition to their facility with planned outpatient follow-up labs and continued close monitoring. PT/OT/case management consulted and following, currently awaiting precertification for skilled facility transition. #2. Chronic normocytic anemia: Admission hemoglobin 10.9, baseline has been 8-9, trending now more that normal range, 11/02/2022 hemoglobin 9.5, stable. #3. Hypertension: Continue home regimen including Norvasc, clonidine, Cardura, Lasix, losartan, PRN hydralazine. #4. Hyperlipidemia: We will continue patient home Zetia regimen, not on statin, defer to outpatient, #5. Diabetes mellitus type II with chronic neuropathy: Hold oral home regimen, continue home insulin regimen, ADA diet, accu checks w/ ISS, continue patient home chronic gabapentin regimen. #6. History CVA: Patient with history of stroke with chronic left-sided hemiplegia/facial droop, continue patient home aspirin, Plavix, Zetia as patient has myalgias with statin therapy per allergy listed, hypertensive regimen is noticeable diabetic regimen with alterations as noted. #7. CKD stage IV: Admission BUN/creatinine 33/1.70, baseline creatinine noted primarily 1.6-2.2, 11/01/2022 BUN/creatinine 46/2.02-->11/02/22 BUN/Cr 48/2.07, continue to trend but if continues to rise will hold nephrotoxic regimen. #8. Chronic recurrent left-sided pleural effusion: Continue patient home Lasix oral regimen, encourage out of bed and I-S. Disease evaluated patient 11/02/2022 and at this point they have no concerns that this could be associated with his low-grade temperature presentation or inflammatory marker elevation. All cultures have remained negative. #9. History of renal artery stenosis: Status post PCI, continue aspirin, Plavix, Zetia as statin intolerance noted, hypertensive regimen as well as diabetic regimen as noted. #10. Restless leg syndrome: We will continue patient home Mirapex regimen. #11. BPH: We will continue patient home Flomax regimen. Had recently been initiated on finasteride but this was until his Flomax was reinitiated as he had been out. #12. JOHN: BIPAP q HS. #13. DVT prophylaxis: Had been on lovenox but this was d/c secondary to Hgb concerns prior. #14. CODE status: Full Code. Charges/Coding Visit Charges Inpatient E&M: 62006 Subs Hosp L2
[2022-11-02] MEDS: Insulin Lispro 100 UNIT/ML INSULN.PEN SC ×3 (08:36→18:04)
[2022-11-02] MEDS: Insulin Glargine-YFGN 100 UNIT/ML Pen 14 UNIT SC (08:37)
[2022-11-02 08:56] LABS: Bedside Glucose 219 mg/dL (74-106)
--- NOTE | 2022-11-02 08:56 | CASEMGMT ---
Social Work Telephone call from Ondina ROSEN. Patient accepted to [facility] to start pre-cert this morning. This social psychologist updated patient and medical team on above information. PLAN: [facility] pending pre-cert Social Work to continue to follow. Benjamin KERN, HOA-S
[2022-11-02 09:32] LABS: Erythrocyte Sedimentation Rate 76 mm/hr (0-20)
[2022-11-02] MEDS: Gabapentin 100 MG Capsule PO ×2 (10:06→16:51)
[2022-11-02] MEDS: Multivitamins,Ther W-Minerals Tablet 1 TABLET PO (10:06)
[2022-11-02] MEDS: Aspirin 81 MG TAB.CHEW PO (10:07)
[2022-11-02] MEDS: Clopidogrel Bisulfate 75 MG Tablet PO (10:07)
[2022-11-02] MEDS: amLODIPine 10 MG Tablet PO (10:07)
--- NOTE | 2022-11-02 10:24 | CON.PCM.ID_ITS ---
Assessment & Plan Assessment/Plan (1) Fever: QUALIFIERS: Fever type: unspecified Qualified Code(s): R50.9 - Fever, unspecified PLAN: Resolved. Cxs and viral testing neg. Ceftriaxone stopped yesterday, feeling fine. Agree with monitoring off of abx. Will follow as needed, thank you HPI Consult Data Date of Consult: 11/02/22 HPI Narrative Reason for Consultation: fever HPI Narrative: SHAISTA CLOUD, is a 82 M with h/o DM, htn, stroke, presented 10/28 with generalized weakness, L more than R. Denies any fever, chills, cough, SOB, congestion, n/v/d, abd pain, dysuria, rash, or aches. Admitted here, did have one time temp 100.8 and some other low grade temps. Started on empiric ceftriaxone, workup neg, no further fever, feeling back to normal, abx stopped yesterday. Full ROS performed and neg except as noted above. [facility] Medical History Absent pedal pulses Acute left-sided muscle weakness Chronic anemia Congestive heart failure Coronary artery disease Depression Dysphagia Essential hypertension Facial droop due to acute stroke History of CVA (cerebrovascular accident) (12/2020) Hydrocele in adult Hyperlipidemia Hypertension Incontinence Limb weakness Normocytic normochromic anemia Obstructive Sleep Apnea-Hypopnea Syndrome Osteoarthritis Peripheral vascular occlusive disease Pneumonia Proteinuria due to type 2 diabetes mellitus Recurrent inguinal hernia of right side without obstruction or gangrene Restless legs Right pontine CVA Right renal artery stenosis Skin lesion of face SOB (shortness of breath) Type 2 diabetes mellitus Unsteadiness Ventricular tachycardia 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 on 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) Home Medications multivitamin,[id number] (Complete Multivitamin tablet) 1 tab PO QDAY supplement 03/03/17 [History Last Taken 02/23/22] aspirin 81 mg chewable tablet 81 mg PO BREAKFAST heart health 01/02/21 [History Last Taken 02/24/22] Handicap Placard #1 ea 02/12/21 [Rx Last Taken Unknown] doxazosin 8 mg tablet 8 mg PO QHS bph 02/24/22 [History Last Taken 02/23/22] ezetimibe 10 mg tablet (Zetia) 10 mg PO QHS cholesterol 02/24/22 [History Last Taken 02/23/22] latanoprost 0.005 % eye drops 1 drp EACH EYE HS eyes 02/24/22 [History Last Taken 02/23/22] pramipexole 0.125 mg tablet 0.125 mg PO QHS parkinsons 02/24/22 [History Last Taken 02/23/22] sertraline 50 mg tablet 50 mg PO QHS mood 02/24/22 [History Last Taken 02/24/22] insulin lispro 100 unit/mL subcutaneous pen (Humalog KwikPen (U-100) Insulin) 6 unit subcut TIDAC PRN diabetes 03/17/22 [History Last Taken Unknown] gabapentin 100 mg capsule 100 mg PO BID pain #180 caps 03/18/22 [Rx Last Taken Unknown] gabapentin 300 mg capsule 300 mg PO 2100 pain #90 caps 03/18/22 [Rx Last Taken Unknown] losartan 25 mg tablet 25 mg PO DAILY BP 04/12/22 [History Last Taken Unknown] clopidogrel 75 mg tablet (Plavix) 75 mg PO DAILY blood thinner #90 tabs 06/07/22 [Rx Last Taken Unknown] pen needle, diabetic 32 gauge x 5/32 (BD Sanaz 2nd Gen Pen Needle) #50 ea 06/17/22 [Rx Last Taken Unknown] clonidine HCl 0.1 mg tablet 0.1 mg PO BID #60 tabs 07/09/22 [Rx Last Taken Unknown] furosemide 40 mg tablet (Lasix) 40 mg PO DAILY #60 tabs 08/03/22 [Rx Last Taken Unknown] hydralazine 25 mg tablet 75 mg (3 x 25 mg) PO TID BP #270 tabs 08/05/22 [Rx Last Taken Unknown] insulin glargine 100 unit/mL (3 mL) subcutaneous pen (Basaglar KwikPen U-100 Insulin) 18 unit (0.18 mL) subcut DAILY #15 mL 08/10/22 [Rx Last Taken Unknown] carvedilol 6.25 mg tablet 6.25 mg PO BID #60 tabs 08/12/22 [Rx Last Taken Unknown] triamcinolone acetonide 0.1 % topical cream 1 applic topical BID 10 days #30 grams 10/12/22 [Rx Last Taken Unknown] amlodipine 10 mg tablet 10 mg PO DAILY BP #90 tabs 10/15/22 [Rx Last Taken Unknown] oxygen #1 ea 10/26/22 [Rx Last Taken Unknown] Allergy/AdvReac Type Severity Reaction Status Date / Time meloxicam [From Mobic] Allergy Intermediate itching Verified 10/28/22 17:41 pravastatin [From Pravachol] AdvReac Mild myalgia Verified 10/28/22 17:41 cholestyramine AdvReac hypoglycemi Verified 10/28/22 17:41 a Family History Mother Hypertension Cancer Father Heart disease Diabetes Surgical History History of cataract surgery History of herniorrhaphy History of lumbar laminectomy History of stent insertion of renal artery (08/05/21) Status post laser cataract surgery of left eye Social History household members: spouse and other details: Abigail is his 's name housing: house number of children: 2 current occupational status: retired and other details: worked for [employer] prior to retiring leisure activities: other Smoking Status: Never smoker Electronic Cigarette Use: not used second hand exposure: No alcohol intake: former substance use type: does not use what type of physical activity do you participate in: walking frequency: 1-2 times per week inés/mormon: None seatbelt use: always Physical Exam Const alert, oriented x3 and no apparent distress General Appearance: cooperative HEENT normocephalic and head/scalp atraumatic Eyes PERRL and EOMs intact bilaterally Neck supple and No nodes Resp normal air movement and clear to auscultation bilaterally Cardio regular rate and regular rhythm GI soft to palpation, non-tender and non-distended Extremity General Extremity: Negative for edema Skin no rashes or lesions noted Neuro CN's II-XII intact bilaterally Lab / Micro Data Attestation: I reviewed the patient's lab results. 11/02/22 05:02 11/02/22 05:02 Labs: Laboratory Results - last 24 hr 11/01/22 05:05: ESR 68 H, C-React Prot Ext Range 97.10 H 11/01/22 11:32: POC Glucose 236 H 11/01/22 16:56: POC Glucose 219 H 11/02/22 05:02: WBC 12.1 H, RBC 3.12 L, Hgb 9.5 L, Hct 28.6 L, MCV 91.7, MCH 30.4, MCHC 33.2, RDW Std Deviation 48.6 H, RDW Coeff of Cait 14.6, Plt Count 267, MPV 10.7, Immature Gran % (Auto) 1.100 H, Neut % (Auto) 70.8 H, Lymph % (Auto) 11.4 L, [place] % (Auto) 12.0 H, Eos % (Auto) 4.0, Baso % (Auto) 0.7, Absolute Neuts (auto) 8.6 H, Absolute Lymphs (auto) 1.38, Nucleated RBC % 0, ESR 76 H, Sodium 137, Potassium 4.7, Chloride 106, Carbon Dioxide 25.0, Anion Gap 6, BUN 48 H, Creatinine 2.07 H, Estim Creat Clear Calc 29.68, Est GFR (MDRD) Af Amer 40 L, Est GFR (MDRD) Non-Af 33 L, BUN/Creatinine Ratio 23.2 H, Glucose 203 H, Calcium 8.6, Total Bilirubin 0.20, AST 17, ALT 26, Alkaline Phosphatase 67, C- React Prot Ext Range 98.40 H, Total Protein 6.5, Albumin 2.5 L, Globulin 4.0, Albumin/Globulin Ratio 0.6 L 11/02/22 08:35: POC Glucose 219 H Micro: Microbiology 11/01/22 12:45 Mucosa - Nose Coronavirus COVID-19 PCR - Final 11/01/22 12:45 Mucosa - Nose Respiratory Panel (PCR) - Final
[2022-11-02 12:15] LABS: Bedside Glucose 279 mg/dL (74-106)
[2022-11-02 17:10] LABS: Bedside Glucose 258 mg/dL (74-106)
[2022-11-02] MEDS: Tamsulosin HCl 0.4 MG Capsule PO (18:04)
[2022-11-02] MEDS: Carvedilol 6.25 MG Tablet PO (18:04)
[2022-11-02] MEDS: Gabapentin 300 MG Capsule PO (21:04)
[2022-11-02] MEDS: Latanoprost 0.005% 1 Bottle 1 DRP EACH EYE (21:10)
[2022-11-02] MEDS: Doxazosin 4 MG Tablet 8 MG PO (21:11)
[2022-11-02] MEDS: Sertraline 50 MG Tablet PO (21:12)
[2022-11-02] MEDS: Pramipexole Di-HCl 0.125 MG Tablet PO (21:12)
[2022-11-02] MEDS: Ezetimibe 10 MG Tablet PO (21:13)
[2022-11-02] MEDS: 0.9% Saline Lock 10 ML Syringe IV (21:17)
[2022-11-02 23:17] LABS: Bedside Glucose 167 mg/dL (74-106)
[2022-11-03 03:15] VITALS: BP 153/67; PULSE 54; RESP 16; TEMP 36.5; O2SAT 95
[2022-11-03 06:08] LABS: Absolute Lymphocyte Count 1.81 X10^3/uL (0.83-4.51); Absolute Neutrophil Count 6.2 X10^3/uL (2.0-7.7); Basophil# 0.08 X10^3/uL; Basophil% 0.8 % (0-1); Eosinophil# 0.65 X10^3/uL; Eosinophils% 6.4 % (0-5); Hematocrit 27.6 % (40-54); Hemoglobin 9.1 g/dL (13.0-16.5); Lymphocyte # 1.81 X10^3/ul (0.83-4.51); Lymphocyte % 17.7 % (19-41); Mean Corpuscular Hgb 30.1 pg (27.0-32.0); Mean Corpuscular Volume 91.4 fL (80-94); Mean Platelet Vol. 10.7 fl (6.2-12.0); Monocyte% 12.7 % (0-10); NRBC Flagged by Analyzer 0 % (0-5); Neutrophil # 6.24 X10^3/uL (2.7-7.7); Neutrophil % 60.9 % (47-70); Platelet Count 234 K/mm3 (150-450); RBC Distribution Width CV 14.4 % (11.6-14.6); RBC Distribution Width SD 48.5 fl (35.1-43.9); Red Blood Count 3.02 M/mm3 (4.6-6.2); White Blood Count 10.2 K/mm3 (4.4-11.0)
[2022-11-03 06:15] VITALS: BP 150/63; PULSE 63
[2022-11-03] MEDS: hydrALAZINE 25 MG Tablet 75 MG PO (06:15)
--- NOTE | 2022-11-03 06:26 | PN.HOSP_ITS ---
Reason for Visit Reason for Visit: Diagnoses Retention of urine, unspecified (10/29/22) Fever, unspecified (10/29/22) Weakness (10/29/22) Subjective Subjective Patient with no acute events overnight per self per nursing staff. Notes he is feeling well and doing well. He does not actually need any oxygen during the day he is only been using it supplemental at night as he is normally on BiPAP with it to bleed into it. He is eager for transition to TCU and is amenable once precertification is obtained. Repeat chest x-ray PA and lateral to be cautious obtained this morning with no acute findings. Patient remained afebrile overnight. Patient denies chills, nausea, emesis, abdominal pain, chest pain or dyspnea. Objective Data Objective Data Vital Signs: Vital Signs Temp Pulse Resp BP Pulse Ox O2 Del Method O2 Flow Rate 97.7 F L 63 16 150/63 H 95 Bi-pap 2 11/03/22 03:15 11/03/22 06:15 11/03/22 03:15 11/03/22 06:15 11/03/22 03:15 11/03/22 05:23 11/03/22 03:15 Oxygen Flow Rate (L/min) 2 Oxygen Delivery Method Bi-pap Weight: 183 lb 3.266 oz Body Mass Index (BMI) 24.8 Intake & Output: Intake and Output for Last 24 Hours 11/01/22 11/02/22 11/03/22 23:59 23:59 23:59 Intake Total 1640 / 1640 1000 / 1240 340 / 340 Output Total 1800 / 1800 900 / 2200 1700 / 1700 Balance -160 / -160 100 / -960 -1360 / -1360 Lab / Micro Data 11/03/22 05:30 11/03/22 05:30 Labs: Laboratory Results - last 24 hr 11/02/22 05:02: ESR 76 H, C-React Prot Ext Range 98.40 H 11/02/22 08:35: POC Glucose 219 H 11/02/22 11:56: POC Glucose 279 H 11/02/22 16:53: POC Glucose 258 H 11/02/22 21:09: POC Glucose 167 H 11/03/22 05:30: WBC 10.2, RBC 3.02 L, Hgb 9.1 L, Hct 27.6 L, MCV 91.4, MCH 30.1, MCHC 33.0, RDW Std Deviation 48.5 H, RDW Coeff of Cait 14.4, Plt Count 234, MPV 10.7, Immature Gran % (Auto) 1.500 H, Neut % (Auto) 60.9, Lymph % (Auto) 17.7 L, [place] % (Auto) 12.7 H, Eos % (Auto) 6.4 H, Baso % (Auto) 0.8, Absolute Neuts (auto) 6.2, Absolute Lymphs (auto) 1.81, Nucleated RBC % 0 Micro: Microbiology 11/02/22 12:55 Stool Stool Occult Blood (DAX) - Final 11/01/22 12:45 Mucosa - Nose Coronavirus COVID-19 PCR - Final 11/01/22 12:45 Mucosa - Nose Respiratory Panel (PCR) - Final 10/28/22 18:50 Blood Culture (Wb) - Right Hand Blood Culture - Preliminary No growth in 48 hours. 10/28/22 18:40 Blood Culture (Wb) - Anticubital Right Blood Culture - Preliminary No growth in 48 hours. 10/28/22 19:34 Urine, Clean Catch Urine Culture - Final Culture exhibits no growth. 10/28/22 18:50 Nasal Secretion SARS-CoV-2 & FLU Antigen (Rapid) - Final Physical Exam Narrative Physical Examination: General: Awake, alert, oriented x 3 and cooperative, seated upright in PCU bed, waking up, denies any complaints. Skin: Normal color, normal turgor, no icterus, no cyanosis except for occasional staged ecchymoses likely related with lab draws. HEENT: AT/NC, EOMI, PERRLA, MMM. Lungs: Mild diminished, greater bases, left greater than right, appropriate effort, no rales, ronchi or wheezing. Heart: Bradycardic with regular rhythm; no gallop, rub audible. Abdomen: Soft, NTTP, ND, normal BS. Extremities: No cyanosis, clubbing, or edema. Neurological: Patient awake, alert, oriented as noted, cognitive function intact; pupils equally reactive to light and accommodation, cranial nerves II- XII grossly normal, moving all 4 extremities, no focal deficits, strength improved, mildly to moderately global decrease. Psychiatric: Affect appears mildly fatigued is just awakening but otherwise normal, no acute evidence of depressive or anxiety feelings. 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 #1. Adult FTT, Fatigue, Malaise, FUO possibly secondary to Viral etiology: Initial ED evaluation with CBC with WBC 14.4 with left shift, urine culture with no growth, rapid SARS COVID influenza antigen negative, blood culture x2 with no growth, obtained full respiratory viral panel as well as COVID PCR to be cauti ous which were both also negative, CRP and ESR obtained with ESR 68 and CRP 97.10, procalcitonin also obtained and noted to be 0.14, but again blood culture and urine cultures were negative. 11/01/22 after dose for day d/c IV Rocephin given negative cultures and since d/c low grade T and mild WBC elevation 11/02/22 CBC w/ WBC 12.1 with L shift requested repeat 11/02/22 CRP/ESR requested w/ CRP 98.40/ESR 76. To be cautious discussed case and patient was evaluated by infectious disease who remained amenable to patient transitioning off antibiotic therapy and once skilled bed available to transition to their facility with planned outpatient follow-up labs and continued close monitoring in that set ting. 11/03/22 CBC w/ 10.2 and remained afebrile overnight. Once precertification obtained patient transitioned to TCU in stable condition for continued therapies with requested PCP follow-up. #2. Chronic normocytic anemia: Admission hemoglobin 10.9, baseline has been 8- 9, trending now more that normal range, 11/03/2022 hemoglobin 9.1 with guiac negative of note. #3. Hypertension: Continue home regimen including Norvasc, clonidine, Cardura, Lasix, losartan, PRN hydralazine. #4. Hyperlipidemia: We will continue patient home Zetia regimen, not on statin, defer to outpatient, #5. Diabetes mellitus type II with chronic neuropathy: Hold oral home regimen, continue home insulin regimen, ADA diet, accu checks w/ ISS, continue patient home chronic gabapentin regimen. #6. History CVA: Patient with history of stroke with chronic left-sided hemiplegia/facial droop, continue patient home aspirin, Plavix, Zetia as patient has myalgias with statin therapy per allergy listed, hypertensive regimen is noticeable diabetic regimen with alterations as noted. #7. CKD stage IV: Admission BUN/creatinine 33/1.70, baseline creatinine noted primarily 1.6-2.2, 11/01/2022 BUN/creatinine 46/2.02-->11/03/22 BUN/Cr 48/1.61. #8. Chronic recurrent left-sided pleural effusion: Continue patient home Lasix oral regimen, encourage out of bed and I-S. Disease evaluated patient 11/02/2022 and at this point they have no concerns that this could be associated with his low-grade temperature presentation or inflammatory marker elevation. All cultures have remained negative. #9. History of renal artery stenosis: Status post PCI, continue aspirin, Plavix, Zetia as statin intolerance noted, hypertensive regimen as well as diabetic regimen as noted. #10. Restless leg syndrome: We will continue patient home Mirapex regimen. #11. BPH: We will continue patient home Flomax regimen. Had recently been initiated on finasteride but this was until his Flomax was reinitiated as he had been out. #12. JOHN: BIPAP q HS. #13. DVT prophylaxis: Had been on lovenox but this was d/c secondary to Hgb concerns prior. #14. CODE status: Full Code. Charges/Coding Visit Charges Inpatient E&M: 92018 Subs Hosp L2
[2022-11-03 06:41] LABS: ALB/GLOB Ratio 0.6 RATIO (0.9-2.4); AST(SGOT) 16 U/L (15-37); Alanine Aminotransfer ALT/SGPT 25 U/L (16-61); Albumin, Serum 2.3 g/dL (3.2-5.0); Alkaline Phosphatase 59 U/L (45-117); Anion Gap 3 (5-15); BUN 48 mg/dL (7-18); BUN/Creat Ratio 29.8 RATIO (10-20); Calcium,Total 8.4 mg/dL (8.5-10.1); Chloride 107 mmol/L (98-107); Creatinine, Serum 1.61 mg/dL (0.70-1.30); EST Glomerular Filtration Rate 44 mL/min (>60); Est Glom Filt Rate - Afr Amer 53 mL/min (>60); Estimated Creatinine Clearance 38.16 ml/min; Globulin 3.8 g/dL (2.2-4.2); Glucose 154 mg/dL (74-106); Potassium 4.8 mmol/L (3.5-5.1); Protein, Total 6.1 g/dL (6.4-8.2); Sodium Level 140 mmol/L (136-145)
--- NOTE | 2022-11-03 07:55 | RAD_ITS ---
STUDY: X-RAY CHEST REASON FOR EXAM: Male, 82 years old. Hypoxia. TECHNIQUE: Frontal and lateral views of the chest. COMPARISON: Chest dated October 28, 2022. FINDINGS: Stable cardiomegaly with aortic tortuosity and calcification. Prominent central pulmonary arteries, unchanged. Elevation of the right hemidiaphragm with slight increased atelectasis in the right middle and lower lobes. Mild diffuse interstitial pattern unchanged. Small bilateral pleural effusions. No abnormality of the visualized soft tissue structures of the upper abdomen. RAD/Chest PA and Lateral IMPRESSION: Increased atelectasis at the right base with elevation of the right hemidiaphragm. No active or acute cardiopulmonary disease. Electronically Signed: Hakan Damon MD at 9:47 EDT ,
[2022-11-03] MEDS: Insulin Lispro 100 UNIT/ML INSULN.PEN SC ×2 (08:46→11:21)
[2022-11-03] MEDS: Insulin Glargine-YFGN 100 UNIT/ML Pen 14 UNIT SC (08:46)
[2022-11-03] MEDS: 0.9% Saline Lock 10 ML Syringe IV (08:49)
[2022-11-03] MEDS: Aspirin 81 MG TAB.CHEW PO (08:50)
[2022-11-03] MEDS: Multivitamins,Ther W-Minerals Tablet 1 TABLET PO (08:50)
[2022-11-03] MEDS: Carvedilol 6.25 MG Tablet PO (08:58)
[2022-11-03] MEDS: Gabapentin 100 MG Capsule PO (08:58)
[2022-11-03] MEDS: Clopidogrel Bisulfate 75 MG Tablet PO (09:00)
[2022-11-03] MEDS: amLODIPine 10 MG Tablet PO (09:00)
[2022-11-03 09:15] VITALS: BP 155/59; PULSE 63; RESP 16; TEMP 37.2; O2SAT 93
[2022-11-03 10:00] LABS: Bedside Glucose 182 mg/dL (74-106)
--- NOTE | 2022-11-03 11:12 | TREXTCAR_ITS ---
Diet Diet Order/Speech Therapy: 11/01/22 10:53 Diet: Cardiac: Calorie-Controlled Food consistency:: Regular Liquid Consistency:: Regular/Thin Is pt able to select menu?: Yes How many daily calories?: 1999 calorie Routine Orders/Code Status Enema Type: Fleetz Enema Frequency: Daily PRN Suppository Type: Dulcolax 10mg Suppository Frequency: Daily PRN Keep PO Greater than or Equal to (%): 92 Routine Lab Work: - (Repeat CBC, BMP within 3-5 days.) Code Status: Full Code Suggestions for Active Care Change Position every (hours): 2 Hours to sit in a chair: 5 Times a day to sit in chair: 3 Therapies Weight Bearing: Full weight bearing Occupational Therapy: Eval and Treat Speech Therapy: Eval and Treat Problem/Diagnosis (1) Fever: Status: Acute Code(s): R50.9 - Fever, unspecified Comment: Discharge Diagnoses: #1. Adult FTT, Fatigue, Malaise, FUO possibly secondary to suspected Viral etiology #2. Chronic normocytic anemia #3. Hypertension #4. Hyperlipidemia #5. Diabetes mellitus type II with chronic neuropathy #6. History CVA #7. CKD stage IV #8. Chronic recurrent small left-sided pleural effusion #9. History of renal artery stenosis #10. Restless leg syndrome #11. BPH #12. JOHN #13. CODE status: Full Code. Plan The patient is an 82 y/o F w/ PMHx: CKD stage IV, Hx CVA with residual left-sara ed weakness/facial droop, HTN, HLD, JOHN on BIPAP, Diabetes mellitus type II with chronic neuropathy, Chronic anemia, RLS, Hx R renal artery stenosis s/p PCI who presented to the [facility] ED on 10/28/22 with history of increased weakness and fatigue unable to even get up from his bed incidentally noted to have been started on finasteride the day prior for BPH with reported chills but no fevers however he was noted to be low-grade upon ED presentation as well as mild hypoxia prompting further evaluation. Initial ED evaluation with CBC with WBC 14.4 with left shift, urine culture with no growth, rapid SARS COVID influenza antigen negative, blood culture x2 with no growth, obtained full respiratory viral panel as well as COVID PCR to be cautious which were both also negative, CRP and ESR obtained with ESR 68 and CRP 97.10, procalcitonin also obtained and noted to be 0.14, but again blood culture and urine cultures were negative. 11/01/22 after dose for day d/c IV Rocephin given negative cultures and since d/c low grade T and mild WBC elevation 11/02/22 CBC w/ WBC 12.1 with L shift requested repeat 11/02/22 CRP/ESR requested w/ CRP 98.40/ESR 76. To be cautious discussed case and patient was evaluated by infectious disease who remained amenable to patient transitioning off antibiotic therapy and once skilled bed available to transition to their facility with planned outpatient follow-up labs and continued close monitoring in that setting. 11/03/22 CBC w/ 10.2 and remained afebrile overnight. Admission hemoglobin 10.9, baseline has been 8-9, trending now more that normal range, 11/03/2022 hemoglobin 9.1 with guiac negative of note. Admission BUN/creatinine 33/1.70, baseline creatinine noted primarily 1.6- 2.2, 11/01/2022 BUN/creatinine 46/2.02-->11/03/22 BUN/Cr 48/1.61. 11/03/22 CXR PA and lateral obtained and no marked findings. Continued on q HS BIPAP for his JOHN. PT/OT/case management consulted and followed. Once precertification obtained patient transitioned to TCU in stable condition for continued therapies with requested PCP follow-up. Allergies/Procedures Done in Hospital Allergies meloxicam [From Mobic] Allergy (Intermediate, Verified 10/28/22 17:41) itching pravastatin [From Pravachol] Adverse Reaction (Mild, Verified 10/28/22 17:41) myalgia cholestyramine Adverse Reaction (Verified 10/28/22 17:41) hypoglycemia Procedures: EKG Type of Care/Length of Stay Estimated LOS: Convalescent Care Less Than 30 days Type of Care Needed: Skilled Rehab Potential: Good Prognosis: Good Additional Orders/Day of Discharge Additional Orders: (1) HOB (2) IS 10x/hr 7a-7p while awake (3) OOB to chair for all meals (4) Continue aspiration and fall precautions Day of Discharge: 11/03/22 Dietary and Speech Recommendations Dietitian Recommendations/Changes: RD will adjust diet to 2000CCD/Cardiac to manage medical conditions. Discharge Plan Admission Admit Date/Time: 10/29/22 16:29 Primary Reason for Your Visit: FUO, unclear etiology, possibly viral etiology, Adult FTT Attending Provider: Johana Archuleta Primary Care Provider: Jennifer Watt Consulting Providers: Tato Avendaño; Adiel Umanzor; Jonathan Bowling Discharge Orders/Prescriptions Prescriptions: Continued multivitamin,[id number]-jhvm-[id number] tablet tablet 1 tab PO QDAY furosemide [Lasix] 40 mg tablet 40 mg PO DAILY Qty: 60 3RF aspirin 81 mg tablet,chewable 81 mg PO BREAKFAST latanoprost 0.005 % drops 1 drp EACH EYE HS doxazosin 8 mg tablet 8 mg PO QHS pramipexole 0.125 mg tablet 0.125 mg PO QHS sertraline 50 mg tablet 50 mg PO QHS ezetimibe [Zetia] 10 mg tablet 10 mg PO QHS Rx Instructions: take at bedtime losartan 25 mg tablet 25 mg PO DAILY (DME) Handicap Placard See Rx Instructions .Route .MEDSUPPLY Qty: 1 0RF Rx Instructions: Length of time: 5 years gabapentin 100 mg capsule 100 mg PO BID Qty: 180 3RF gabapentin 300 mg capsule 300 mg PO 2100 Qty: 90 3RF clopidogrel [Plavix] 75 mg tablet 75 mg PO DAILY Qty: 90 3RF (DME) pen needle, diabetic [BD Sanaz 2nd Gen Pen Needle] 32 gauge x 5/32 needle See Rx Instructions .ROUTE .MEDSUPPLY Qty: 50 2RF Rx Instructions: use once daily to adminster insulin as directed. clonidine HCl 0.1 mg tablet 0.1 mg PO BID Qty: 60 11RF hydralazine 25 mg tablet 75 mg PO TID Qty: 270 3RF carvedilol 6.25 mg tablet 6.25 mg PO BID Qty: 60 11RF Rx Instructions: must administer with a meal/food triamcinolone acetonide 0.1 % cream 1 applic topical BID 10 Days Qty: 30 1RF amlodipine 10 mg tablet 10 mg PO DAILY Qty: 90 3RF (DME) oxygen See Rx Instructions .Route .MEDSUPPLY Qty: 1 0RF Rx Instructions: DC ALL OXYGEN ORDERS Changed insulin lispro [Humalog KwikPen Insulin] 100 unit/mL insulin pen 4 unit subcut TIDAC PRN (Reason: diabetes) Qty: 15 0RF Patient Comments: if bs over 130 insulin glargine [Basaglar KwikPen U-100 Insulin] 100 unit/mL (3 mL) insulin pen 14 unit subcut DAILY Qty: 15 6RF Referrals / Follow Up: Jennifer Watt MD [Primary Care Provider] - (Follow-up within 1-2 days of SNF discharge; however if the SNF stay is prolonged recommended follow-up in 1-2 wee ks to review admission.) Disposition Disposition (needs filled in before D/C Order can be placed): [facility] Facility (1) Fever Qualifiers: Fever type: unspecified Qualified Code(s): R50.9 - Fever, unspecified
--- NOTE | 2022-11-03 11:23 | DS.PCM_ITS ---
Providers Date of Admission: 10/29/22 Date of Discharge: 11/03/22 Primary Care Physician: Dr. Jennifer Watt MD Consultations 11/01/22 14:25 Consult: Infectious Disease Routine Consulting Provider: Jonathan Bowling Reason for Consult: FUO EMERGENT Consult: No MD Notified: Yes Date Notified: 11/01/22 Time Notified: 14:25 Method of Notification: Text Reason For Visit: GENERALIZED WEAKNESS Diagnosis Discharge Diagnosis (1) Fever: Status: Acute Code(s): R50.9 - Fever, unspecified Qualifiers: Fever type: unspecified Qualified Code(s): R50.9 - Fever, unspecified Plan: Discharge Diagnoses: #1. Adult FTT, Fatigue, Malaise, FUO possibly secondary to suspected Viral etiology #2. Chronic normocytic anemia #3. Hypertension #4. Hyperlipidemia #5. Diabetes mellitus type II with chronic neuropathy #6. History CVA #7. CKD stage IV #8. Chronic recurrent small left-sided pleural effusion #9. History of renal artery stenosis #10. Restless leg syndrome #11. BPH #12. JOHN #13. CODE status: Full Code. Medications at Discharge Home Medications multivitamin,do-wqws-[id number] (Complete Multivitamin tablet) 1 tab PO QDAY supplement 03/03/17 aspirin 81 mg chewable tablet 81 mg PO BREAKFAST heart health 01/02/21 Handicap Placard #1 ea 02/12/21 doxazosin 8 mg tablet 8 mg PO QHS bph 02/24/22 ezetimibe 10 mg tablet (Zetia) 10 mg PO QHS cholesterol 02/24/22 latanoprost 0.005 % eye drops 1 drp EACH EYE HS eyes 02/24/22 pramipexole 0.125 mg tablet 0.125 mg PO QHS parkinsons 02/24/22 sertraline 50 mg tablet 50 mg PO QHS mood 02/24/22 gabapentin 100 mg capsule 100 mg PO BID pain #180 caps 03/18/22 gabapentin 300 mg capsule 300 mg PO 2100 pain #90 caps 03/18/22 losartan 25 mg tablet 25 mg PO DAILY BP 04/12/22 clopidogrel 75 mg tablet (Plavix) 75 mg PO DAILY blood thinner #90 tabs 06/07/22 pen needle, diabetic 32 gauge x /32 (BD Sanaz 2nd Gen Pen Needle) #50 ea 06/17/22 clonidine HCl 0.1 mg tablet 0.1 mg PO BID #60 tabs 07/09/22 furosemide 40 mg tablet (Lasix) 40 mg PO DAILY #60 tabs 08/03/22 hydralazine 25 mg tablet 75 mg (3 x 25 mg) PO TID BP #270 tabs 08/05/22 carvedilol 6.25 mg tablet 6.25 mg PO BID #60 tabs 08/12/22 triamcinolone acetonide 0.1 % topical cream 1 applic topical BID 10 days #30 grams 10/12/22 amlodipine 10 mg tablet 10 mg PO DAILY BP #90 tabs 10/15/22 oxygen #1 ea 10/26/22 insulin glargine 100 unit/mL (3 mL) subcutaneous pen (Basaglar KwikPen U-100 Insulin) 14 unit (0.14 mL) subcut DAILY #15 mL 11/03/22 insulin lispro 100 unit/mL subcutaneous pen (Humalog KwikPen (U-100) Insulin) 4 unit (0.04 mL) subcut TIDAC PRN diabetes #15 mL 11/03/22 Hospital Course Procedures None and EKG Summary of Care Provided Minutes Spent on Discharge: 35 Hospital Course: The patient is an 82 y/o F w/ PMHx: CKD stage IV, Hx CVA with residual left- sided weakness/facial droop, HTN, HLD, JOHN on BIPAP, Diabetes mellitus type II with chronic neuropathy, Chronic anemia, RLS, Hx R renal artery stenosis s/p PCI who presented to the [facility] ED on 10/28/22 with history of increased weakness and fatigue unable to even get up from his bed incidentally noted to have been started on finasteride the day prior for BPH with reported chills but no fevers however he was noted to be low-grade upon ED presentation as well as mild hypoxia prompting further evaluation. Initial ED evaluation with CBC with WBC 14.4 with left shift, urine culture with no growth, rapid SARS COVID influenza antigen negative, blood culture x2 with no growth, obtained full respiratory viral panel as well as COVID PCR to be cautious which were both also negative, CRP and ESR obtained with ESR 68 and CRP 97.10, procalcitonin also obtained and noted to be 0.14, but again blood culture and urine cultures were negative. 11/01/22 after dose for day d/c IV Rocephin given negative cultures and since d/c low grade T and mild WBC elevation 11/02/22 CBC w/ WBC 12.1 with L shift requested repeat 11/02/22 CRP/ESR requested w/ CRP 98.40/ESR 76. To be cautious discussed case and patient was evaluated by infectious disease who remained amenable to patient transitioning off antibiotic therapy and once skilled bed available to transition to their facility with planned outpatient follow-up labs and continued close monitoring in that setting. 11/03/22 CBC w/ 10.2 and remained afebrile overnight. Admission hemoglobin 10.9, baseline has been 8-9, trending now more that normal range, 11/03/2022 hemoglobin 9.1 with guiac negative of note. Admission BUN/creatinine 33/1.70, baseline creatinine noted primarily 1.6- 2.2, 11/01/2022 BUN/creatinine 46/2.02-->11/03/22 BUN/Cr 48/1.61. 11/03/22 CXR PA and lateral obtained and no marked findings. Continued on q HS BIPAP for his JOHN. PT/OT/case management consulted and followed. Once precertification obtained patient transitioned to TCU in stable condition for continued therapies with requested PCP follow-up. Weight / BMI Weight Weight: 183 lb 3.266 oz Body Mass Index (BMI) 24.8 ABG / Lab / Microbiology Data 11/03/22 05:30 11/03/22 05:30 Laboratory: Laboratory Results - last 24 hr 11/02/22 11:56: POC Glucose 279 H 11/02/22 16:53: POC Glucose 258 H 11/02/22 21:09: POC Glucose 167 H 11/03/22 05:30: WBC 10.2, RBC 3.02 L, Hgb 9.1 L, Hct 27.6 L, MCV 91.4, MCH 30.1, MCHC 33.0, RDW Std Deviation 48.5 H, RDW Coeff of Cait 14.4, Plt Count 234, MPV 10.7, Immature Gran % (Auto) 1.500 H, Neut % (Auto) 60.9, Lymph % (Auto) 17.7 L, [place] % (Auto) 12.7 H, Eos % (Auto) 6.4 H, Baso % (Auto) 0.8, Absolute Neuts (auto) 6.2, Absolute Lymphs (auto) 1.81, Nucleated RBC % 0, Sodium 140, Potassium 4.8, Chloride 107, Carbon Dioxide 30.0, Anion Gap 3 L, BUN 48 H, Creatinine 1.61 H, Estim Creat Clear Calc 38.16, Est GFR (MDRD) Af Amer 53 L, Est GFR (MDRD) Non-Af 44 L, BUN/Creatinine Ratio 29.8 H, Glucose 154 H, Calcium 8.4 L, Total Bilirubin 0.20, AST 16, ALT 25, Alkaline Phosphatase 59, Total Protein 6.1 L, Albumin 2.3 L, Globulin 3.8, Albumin/Globulin Ratio 0.6 L 11/03/22 08:44: POC Glucose 182 H Microbiology: Microbiology 10/28/22 18:50 Blood Culture (Wb) - Right Hand Blood Culture - Final No growth in 5 days. 10/28/22 18:40 Blood Culture (Wb) - Anticubital Right Blood Culture - Final No growth in 5 days. 11/02/22 12:55 Stool Stool Occult Blood (DAX) - Final 11/01/22 12:45 Mucosa - Nose Coronavirus COVID-19 PCR - Final 11/01/22 12:45 Mucosa - Nose Respiratory Panel (PCR) - Final 10/28/22 19:34 Urine, Clean Catch Urine Culture - Final Culture exhibits no growth. 10/28/22 18:50 Nasal Secretion SARS-CoV-2 & FLU Antigen (Rapid) - Final Radiography Diagnostic Testing: Radiology Impression Chest X-Ray 11/03/22 07:55 IMPRESSION: Increased atelectasis at the right base with elevation of the right hemidiaphragm. No active or acute cardiopulmonary disease. Electronically Signed: Hakan Damon MD at 9:47 EDT , Meaningful Use Info Meaningful Use Diagnoses (Choose all that apply): None applicable Discharge Plan Admission Admit Date/Time: 10/29/22 16:29 Primary Reason for Your Visit: FUO, unclear etiology, possibly viral etiology, Adult FTT Attending Provider: Johana Archuleta Primary Care Provider: Jennifer Watt Consulting Providers: Tato Avendaño; Adile Umanzor; Jonathan Bowling Discharge Orders/Prescriptions Prescriptions: Continued multivitamin,yr-rtvc-rnhftnyq tablet tablet 1 tab PO QDAY furosemide [Lasix] 40 mg tablet 40 mg PO DAILY Qty: 60 3RF aspirin 81 mg tablet,chewable 81 mg PO BREAKFAST latanoprost 0.005 % drops 1 drp EACH EYE HS doxazosin 8 mg tablet 8 mg PO QHS pramipexole 0.125 mg tablet 0.125 mg PO QHS sertraline 50 mg tablet 50 mg PO QHS ezetimibe [Zetia] 10 mg tablet 10 mg PO QHS Rx Instructions: take at bedtime losartan 25 mg tablet 25 mg PO DAILY (DME) Handicap Placard See Rx Instructions .Route .MEDSUPPLY Qty: 1 0RF Rx Instructions: Length of time: 5 years gabapentin 100 mg capsule 100 mg PO BID Qty: 180 3RF gabapentin 300 mg capsule 300 mg PO 2100 Qty: 90 3RF clopidogrel [Plavix] 75 mg tablet 75 mg PO DAILY Qty: 90 3RF (DME) pen needle, diabetic [BD Sanaz 2nd Gen Pen Needle] 32 gauge x 5/32 needle See Rx Instructions .ROUTE .MEDSUPPLY Qty: 50 2RF Rx Instructions: use once daily to adminster insulin as directed. clonidine HCl 0.1 mg tablet 0.1 mg PO BID Qty: 60 11RF hydralazine 25 mg tablet 75 mg PO TID Qty: 270 3RF carvedilol 6.25 mg tablet 6.25 mg PO BID Qty: 60 11RF Rx Instructions: must administer with a meal/food triamcinolone acetonide 0.1 % cream 1 applic topical BID 10 Days Qty: 30 1RF amlodipine 10 mg tablet 10 mg PO DAILY Qty: 90 3RF (DME) oxygen See Rx Instructions .Route .MEDSUPPLY Qty: 1 0RF Rx Instructions: DC ALL OXYGEN ORDERS Changed insulin lispro [Humalog KwikPen Insulin] 100 unit/mL insulin pen 4 unit subcut TIDAC PRN (Reason: diabetes) Qty: 15 0RF Patient Comments: if bs over 130 insulin glargine [Basaglar KwikPen U-100 Insulin] 100 unit/mL (3 mL) insulin pen 14 unit subcut DAILY Qty: 15 6RF Referrals / Follow Up: Jennifer Watt MD [Primary Care Provider] - (Follow-up within 1-2 days of SNF discharge; however if the SNF stay is prolonged recommended follow-up in 1-2 weeks to review admission.) Disposition Disposition (needs filled in before D/C Order can be placed): Assisted Facility Charges/Coding Visit Charges Inpatient E&M: 00078 Disch Hosp >30min
--- NOTE | 2022-11-03 11:36 | CASEMGMT ---
Social Work Precert has been obtained for admission to TCU. Physician updated and pt is ready for discharge at this time. Discharge orders sent to TCU and Ondina in TCU updated. SW met with pt and informed and pt is agreeable to move to TCU today. With pt permission, phone call to Abigail and updated on dc plan and she is agreeable. Nursing made aware pt can transfer. Disposition: TCU, skilled level of care ROBERTO Dias
[2022-11-03 11:52] LABS: Bedside Glucose 258 mg/dL (74-106)
--- NOTE | 2022-11-03 13:16 | PHA.DC.MR.R ---
Pharmacy [place] Med Reconciliation Pharmacy Service has performed discharge medication reconciliation for this patient. The patient's discharge medication list was reviewed for discrepancies and discrepancies were resolved. Medications at Discharge Home Medications multivitamin,qu-pziu-usgawkmq (Complete Multivitamin tablet) 1 tab PO QDAY supplement 03/03/17 aspirin 81 mg chewable tablet 81 mg PO BREAKFAST heart health 01/02/21 Handicap Placard #1 ea 02/12/21 doxazosin 8 mg tablet 8 mg PO QHS bph 02/24/22 ezetimibe 10 mg tablet (Zetia) 10 mg PO QHS cholesterol 02/24/22 latanoprost 0.005 % eye drops 1 drp EACH EYE HS eyes 02/24/22 pramipexole 0.125 mg tablet 0.125 mg PO QHS parkinsons 02/24/22 sertraline 50 mg tablet 50 mg PO QHS mood 02/24/22 gabapentin 100 mg capsule 100 mg PO BID pain #180 caps 03/18/22 gabapentin 300 mg capsule 300 mg PO 2100 pain #90 caps 03/18/22 losartan 25 mg tablet 25 mg PO DAILY BP 04/12/22 clopidogrel 75 mg tablet (Plavix) 75 mg PO DAILY blood thinner #90 tabs 06/07/22 pen needle, diabetic 32 gauge x 5/32 (BD Sanaz 2nd Gen Pen Needle) #50 ea 06/17/22 clonidine HCl 0.1 mg tablet 0.1 mg PO BID #60 tabs 07/09/22 furosemide 40 mg tablet (Lasix) 40 mg PO DAILY #60 tabs 08/03/22 hydralazine 25 mg tablet 75 mg (3 x 25 mg) PO TID BP #270 tabs 08/05/22 carvedilol 6.25 mg tablet 6.25 mg PO BID #60 tabs 08/12/22 triamcinolone acetonide 0.1 % topical cream 1 applic topical BID 10 days #30 grams 10/12/22 amlodipine 10 mg tablet 10 mg PO DAILY BP #90 tabs 10/15/22 oxygen #1 ea 10/26/22 insulin glargine 100 unit/mL (3 mL) subcutaneous pen (Basaglar KwikPen U-100 Insulin) 14 unit (0.14 mL) subcut DAILY #15 mL 11/03/22 insulin lispro 100 unit/mL subcutaneous pen (Humalog KwikPen (U-100) Insulin) 4 unit (0.04 mL) subcut [facility] PRN diabetes #15 mL 11/03/22
[2022-11-03 13:49] VITALS: BP 129/50; PULSE 53
[2022-11-03 14:00] VITALS: BP 129/50; PULSE 53; RESP 16; TEMP 35.8; O2SAT 93
== END 2022-11-03 14:29 | disposition skilled nursing facility (03) | DRG 866 ==
LOC: ED 22:35 → PCU 22:52
PROVIDERS: Internal Medicine; Admitting Provider Hospitalist; Emergency Provider Emergency Medicine; PCP Internal Medicine; Visit Provider Family Medicine
DX: B34.9 Viral infection, unspecified (principal); I13.0 Hypertensive heart and chronic kidney disease with heart failure and stage 1 through stage 4 chronic kidney disease, or unspecified chronic kidney disease; I69.354 Hemiplegia and hemiparesis following cerebral infarction affecting left non-dominant side; N18.4 Chronic kidney disease, stage 4 (severe); R62.7 Adult failure to thrive; E11.22 Type 2 diabetes mellitus with diabetic chronic kidney disease; D64.9 Anemia, unspecified; E11.42 Type 2 diabetes mellitus with diabetic polyneuropathy; I50.9 Heart failure, unspecified; E11.51 Type 2 diabetes mellitus with diabetic peripheral angiopathy without gangrene; Z79.4 Long term (current) use of insulin; G25.81 Restless legs syndrome; I25.10 Atherosclerotic heart disease of native coronary artery without angina pectoris; E78.5 Hyperlipidemia, unspecified; G47.33 Obstructive sleep apnea (adult) (pediatric); I69.392 Facial weakness following cerebral infarction; E87.6 Hypokalemia; I69.391 Dysphagia following cerebral infarction; I69.398 Other sequelae of cerebral infarction; I69.322 Dysarthria following cerebral infarction; R53.1 Weakness; R09.02 Hypoxemia; Z79.82 Long term (current) use of aspirin; R50.9 Fever, unspecified; Z79.02 Long term (current) use of antithrombotics/antiplatelets; R53.81 Other malaise; N40.1 Benign prostatic hyperplasia with lower urinary tract symptoms; R39.15 Urgency of urination; R33.8 Other retention of urine; Z79.899 Other long term (current) drug therapy; Z20.822 Contact with and (suspected) exposure to COVID-19; Z68.24 Body mass index [BMI] 24.0-24.9, adult
CPT/HCPCS: 36415; 71045; 71046; 80048; 80053; 81001; 82274; 82962; 83605; 84145; 85025; 85610; 85652; 85730; 86140; 87040; 87086; 87428; 87633; 87635; 93005; 93975; 94002; 94003; 97110; 97116; 97162; 97166; 97530; 97535; 99285; J7030; J7040; A4216

== ENCOUNTER 2022-11-03 14:30 | Inpatient (IN) | payer MEDICARE, SELFPAY ==
[2022-11-03 14:47] VITALS: BP 127/57; PULSE 55; RESP 16; TEMP 36.6; O2SAT 92; BMI 25.3
[2022-11-03 17:01] LABS: Bedside Glucose 266 mg/dL (74-106)
[2022-11-03 17:57] VITALS: BP 141/67; PULSE 64
[2022-11-03] MEDS: Insulin Lispro 100 UNIT/ML INSULN.PEN SC (18:02)
[2022-11-03] MEDS: Gabapentin 100 MG Capsule PO (18:03)
[2022-11-03] MEDS: Triamcinolone Acetonide 0.1% Cream 15 gm 1 APPLIC TOPICAL (18:03)
[2022-11-03] MEDS: cloNIDine HCl 0.1 MG Tablet PO (18:03)
[2022-11-03] MEDS: Carvedilol 6.25 MG Tablet PO (18:03)
--- NOTE | 2022-11-03 20:03 | PCM.HP.STD ---
HPI - General General Date of Admission: 11/03/22 Date of Service: 11/03/22 Chief Complaint: Here for rehabilitation. HPI Narrative 10/28/2022 SHAISTA CLOUD, is a 82 Male who presents to [facility] Emergency Department with weakness. Generalized weakness, chronic left hemiparesis from stroke. Weak all over, unable to stand, pivot, started Finasteride recently which is new. Fever 100.4 WBC 14.4, Hemoglobin 10.9, BUN 33, Creatinine 1.70. Urinalysis negative. covid19 negative, flu negative. Blood, urine culture pending. 10/28/2022 Admit to Hospital. PT/OT for weakness. Fever, elevated WBC, etiology unclear. 10/29/2022 Possible viral illness. 10/30/2022 Fever 100.8. Rocephin IV started empirically. ? Viral illness. 10/31/2022 Temperature 99.8. Urine culture negative, blood culture pending. Hold Lasix, Hold Lisinopril for acute kidney injury. 11/01/2022 Feels better, frustrated at lack of source of fever. Stop Rocephin IV. Blood cultures negative, respiratory panel negative. PT/OT for SNF. 11/02/2022 Low grade fever, WBC 12.1. Off antibiotics. 11/02/2022 Dr. Bowling agreed with monitoring off antibiotics. Cultures negative, viral testing negative. 11/03/2022 Admit to TCU with debility, here for rehabilitation, strengthening, prior to discharge home with . [facility] Medical History Absent pedal pulses Acute left-sided muscle weakness Chronic anemia Congestive heart failure Coronary artery disease Depression Dysphagia Essential hypertension Facial droop due to acute stroke History of CVA (cerebrovascular accident) (12/2020) Hydrocele in adult Hyperlipidemia Hypertension Incontinence Limb weakness Normocytic normochromic anemia Obstructive Sleep Apnea-Hypopnea Syndrome Osteoarthritis Peripheral vascular occlusive disease Pneumonia Proteinuria due to type 2 diabetes mellitus Recurrent inguinal hernia of right side without obstruction or gangrene Restless legs Right pontine CVA Right renal artery stenosis Skin lesion of face SOB (shortness of breath) Type 2 diabetes mellitus Unsteadiness Ventricular tachycardia seen on woodworking belt sander (02/20/21) Home Medications multivitamin,ec-iori-lqgwylcx (Complete Multivitamin tablet) 1 tab PO QDAY supplement 03/03/17 [History Last Taken 11/03/22] aspirin 81 mg chewable tablet 81 mg PO BREAKFAST heart health 01/02/21 [History Last Taken 11/03/22] Handicap Placard #1 ea 02/12/21 [Rx Last Taken Unknown] doxazosin 8 mg tablet 8 mg PO QHS bph 02/24/22 [History Last Taken 11/02/22] ezetimibe 10 mg tablet (Zetia) 10 mg PO QHS cholesterol 02/24/22 [History Last Taken 11/02/22] latanoprost 0.005 % eye drops 1 drp EACH EYE HS eyes 02/24/22 [History Last Taken 11/02/22] pramipexole 0.125 mg tablet 0.125 mg PO QHS parkinsons 02/24/22 [History Last Taken 11/02/22] sertraline 50 mg tablet 50 mg PO QHS mood 02/24/22 [History Last Taken 11/02/22] gabapentin 100 mg capsule 100 mg PO BID pain #180 caps 03/18/22 [Rx Last Taken 11/03/22] gabapentin 300 mg capsule 300 mg PO 2100 pain #90 caps 03/18/22 [Rx Last Taken 11/02/22] losartan 25 mg tablet 25 mg PO DAILY BP 04/12/22 [History Last Taken 10/31/22] clopidogrel 75 mg tablet (Plavix) 75 mg PO DAILY blood thinner #90 tabs 06/07/22 [Rx Last Taken 11/03/22] pen needle, diabetic 32 gauge x 5/32 (BD Sanaz 2nd Gen Pen Needle) #50 ea 06/17/22 [Rx Last Taken Unknown] clonidine HCl 0.1 mg tablet 0.1 mg PO BID heart #60 tabs 07/09/22 [Rx Last Taken 10/31/22] furosemide 40 mg tablet (Lasix) 40 mg PO DAILY water pill #60 tabs 08/03/22 [Rx Last Taken 10/30/22] hydralazine 25 mg tablet 75 mg (3 x 25 mg) PO TID BP #270 tabs 08/05/22 [Rx Last Taken 11/03/22] carvedilol 6.25 mg tablet 6.25 mg PO BID heart #60 tabs 08/12/22 [Rx Last Taken 11/03/22] triamcinolone acetonide 0.1 % topical cream 1 applic topical BID topical 10 days #30 grams 10/12/22 [Rx Last Taken Unknown] amlodipine 10 mg tablet 10 mg PO DAILY BP #90 tabs 10/15/22 [Rx Last Taken 11/03/22] oxygen #1 ea 10/26/22 [Rx Last Taken Unknown] insulin glargine 100 unit/mL (3 mL) subcutaneous pen (Basaglar KwikPen U-100 Insulin) 14 unit (0.14 mL) subcut DAILY blood sugar #15 mL 11/03/22 [Rx Last Taken 11/03/22] insulin lispro 100 unit/mL subcutaneous pen (Humalog KwikPen (U-100) Insulin) 4 unit (0.04 mL) subcut TIDAC PRN diabetes #15 mL 11/03/22 [Rx Last Taken 11/03/22] Allergy/AdvReac Type Severity Reaction Status Date / Time meloxicam [From Mobic] Allergy Intermediate itching Verified 10/28/22 17:41 pravastatin [From Pravachol] AdvReac Mild myalgia Verified 10/28/22 17:41 cholestyramine AdvReac hypoglycemi Verified 10/28/22 17:41 a Family History Mother Hypertension Cancer Father Heart disease Diabetes Surgical History History of cataract surgery History of herniorrhaphy History of lumbar laminectomy History of stent insertion of renal artery (08/05/21) Status post laser cataract surgery of left eye Social History household members: spouse and other details: Abigail is his 's name housing: house number of children: 2 current occupational status: retired and other details: worked for [employer] prior to retiring leisure activities: other Smoking Status: Never smoker Electronic Cigarette Use: not used second hand exposure: No alcohol intake: former substance use type: does not use what type of physical activity do you participate in: walking frequency: 1-2 times per week inés/taoist: None seatbelt use: always ROS Constitutional Constitutional: Denies chills, fever(s) or weight gain ENT HEENT: Denies headache(s), nasal congestion or nasal discharge Cardiovascular Cardiovascular: Denies chest pain or palpitations Respiratory/Chest Respiratory/Chest: Denies cough, excessive phlegm production or shortness of breath with exertion Gastrointestinal Gastrointestinal: Denies abdominal pain, nausea or vomiting Genitourinary Genitourinary: Denies dysuria Musculoskeletal Musculoskeletal: Denies joint pain or joint swelling Integumentary Integumentary: Denies rash or wounds Neurologic Neurologic: Denies focal weakness, numbness or tingling Psychiatric Psychiatric: Denies anxiety, auditory hallucinations, depression, homicidal ideation or suicidal ideation Vital Signs Vital Signs Vital Signs: 11/03/22 14:47 11/03/22 14:47 11/03/22 17:57 Temperature 97.8 F Temperature Source Temporal Pulse Rate 55 L 64 Pulse Rhythm Regular Pulse Strength Normal (2+) Respiratory Rate 16 Respiratory Effort Normal Non-Labored Respiratory Depth Normal Respiratory Pattern Normal Blood Pressure 127/57 H 141/67 H Blood Pressure Mean 80 91 Blood Pressure Source Monitor Monitor Blood Pressure Position Semi-Fowlers Sitting Blood Pressure Location Right Arm Right Arm Pulse Ox 92 Oxygen Delivery Method Room Air Room Air Weight Weight: 84.822 kg Body Mass Index (BMI) 25.3 Physical Exam Const alert General Appearance: cooperative HEENT normocephalic Eyes PERRL and EOMs intact bilaterally Neck supple, no JVD and no carotid bruits Resp normal respiratory effort, normal air movement and clear to auscultation bilaterally Cardio regular rate and regular rhythm GI normal to inspection, nondistended, normoactive bowel sounds, non-tender and non-distended Extremity normal capillary refill General Extremity: Negative for edema Skin no rashes or lesions noted General Skin Exam: no breakdown Neuro Neuro Narrative: Left hemiplegia. Psych affect normal Appearance: appropriate Results Lab / Micro Data Labs: Laboratory Results - last 24 hr 11/03/22 16:31: POC Glucose 266 H Assessment & Plan Assessment/Plan (1) Debility: (2) Weakness: (3) Fever: QUALIFIERS: Fever type: unspecified Qualified Code(s): R50.9 - Fever, unspecified (4) NABILA (acute kidney injury): (5) Heart failure with preserved ejection fraction: (6) Iron deficiency anemia: (7) Hypertension: (8) Stroke: (9) Left hemiplegia: (10) BPH (benign prostatic hyperplasia): (11) Hyperlipidemia: (12) Neuropathic pain: (13) Diabetes mellitus: (14) Glaucoma: (15) Restless leg syndrome: (16) Depression: (17) Obstructive sleep apnea: PLAN: Plan 82 year old male with below past medical history hospitalized for weakness, fever, acute kidney injury, admitted to TCU with debility, here for rehabilitation, strengthening, prior to discharge home with . Debility - PT/OT. Pain - Tylenol 1000mg q6h prn pain (1-10). Bowel - senna/colace 1 tablet bid, Magnesium citrate 300ml daily prn. Adult immunization - Administer pneumonia vaccine, covid19 vaccine, flu vaccine as appropriate. DVT prophylaxis - Hold, dual antiplatelet therapy. Hypertension - Coreg 6.25mg bid, Losartan 25mg daily, Amlodipine 10mg daily, Clonidine 0.1mg bid, Hydralazine 75mg tid. Stroke - Plavix 75mg daily, Aspirin 81mg daily. BPH - Doxazosin 8mg qhs. Hyperlipidemia - Zetia 10mg qhs. Heart failure preserved ejection fraction - Coreg 6.25mg bid, Losartan 25mg daily, Hydralazine 75mg tid, Furosemide 40mg daily. Neuropathic pain - Gabapentin 100mg, 100mg, 300mg. Diabetes Mellitus II - Glargine 14 units daily, Lispro 4 units tidac. Glaucoma - Latanoprost 1gtt ou qhs. Nutrition - MVI 1 tablet daily. Restless leg syndrome - Mirapex 0.125mg qhs. Depression - Sertraline 50mg qhs. Dermatitis - Triamcinolone topical bid.
[2022-11-03] MEDS: Senna/Docusate Sodium 1 Tablet PO (21:39)
[2022-11-03] MEDS: Latanoprost 0.005% 1 Bottle 1 DRP EACH EYE (21:39)
[2022-11-03] MEDS: Gabapentin 300 MG Capsule PO (21:39)
[2022-11-03 21:40] VITALS: BP 149/67; PULSE 61
[2022-11-03 21:40] LABS: Bedside Glucose 203 mg/dL (74-106)
[2022-11-03] MEDS: hydrALAZINE 25 MG Tablet 75 MG PO (21:40)
[2022-11-03] MEDS: Doxazosin 4 MG Tablet 8 MG PO (21:41)
[2022-11-03] MEDS: Ezetimibe 10 MG Tablet PO (21:41)
[2022-11-03] MEDS: Pramipexole Di-HCl 0.125 MG Tablet PO (21:42)
[2022-11-03] MEDS: Sertraline 50 MG Tablet PO (21:42)
[2022-11-04 05:40] LABS: Absolute Lymphocyte Count 1.72 X10^3/uL (0.83-4.51); Absolute Neutrophil Count 6.6 X10^3/uL (2.0-7.7); Basophil# 0.08 X10^3/uL; Basophil% 0.8 % (0-1); Eosinophil# 0.72 X10^3/uL; Eosinophils% 6.9 % (0-5); Hematocrit 27.9 % (40-54); Hemoglobin 9.3 g/dL (13.0-16.5); Lymphocyte # 1.72 X10^3/ul (0.83-4.51); Lymphocyte % 16.4 % (19-41); Mean Corp Hgb Conc 33.3 g/dL (32-36); Mean Corpuscular Hgb 30.3 pg (27.0-32.0); Mean Corpuscular Volume 90.9 fL (80-94); Mean Platelet Vol. 10.5 fl (6.2-12.0); Monocyte% 11.5 % (0-10); NRBC Flagged by Analyzer 0 % (0-5); Neutrophil # 6.56 X10^3/uL (2.7-7.7); Neutrophil % 62.5 % (47-70); Platelet Count 290 K/mm3 (150-450); RBC Distribution Width CV 14.4 % (11.6-14.6); RBC Distribution Width SD 47.8 fl (35.1-43.9); Red Blood Count 3.07 M/mm3 (4.6-6.2); White Blood Count 10.5 K/mm3 (4.4-11.0)
[2022-11-04 05:48] VITALS: BP 151/68; PULSE 61
[2022-11-04] MEDS: Losartan Potassium 25 MG Tablet PO (05:48)
[2022-11-04] MEDS: hydrALAZINE 25 MG Tablet 75 MG PO ×3 (05:48→21:55)
[2022-11-04] MEDS: amLODIPine 10 MG Tablet PO (05:51)
[2022-11-04] MEDS: Carvedilol 6.25 MG Tablet PO ×2 (05:51→18:09)
[2022-11-04] MEDS: Clopidogrel Bisulfate 75 MG Tablet PO (05:52)
[2022-11-04] MEDS: Insulin Glargine-YFGN 100 UNIT/ML Pen 14 UNIT SC (05:52)
[2022-11-04] MEDS: Furosemide 40 MG Tablet PO (05:52)
[2022-11-04] MEDS: Senna/Docusate Sodium 1 Tablet PO ×2 (05:55→18:09)
[2022-11-04] MEDS: cloNIDine HCl 0.1 MG Tablet PO ×2 (05:56→18:09)
[2022-11-04 06:03] LABS: Anion Gap 5 (5-15); BUN 43 mg/dL (7-18); BUN/Creat Ratio 27.6 RATIO (10-20); Calcium,Total 8.6 mg/dL (8.5-10.1); Chloride 106 mmol/L (98-107); Creatinine, Serum 1.56 mg/dL (0.70-1.30); EST Glomerular Filtration Rate 45 mL/min (>60); Est Glom Filt Rate - Afr Amer 55 mL/min (>60); Estimated Creatinine Clearance 39.38 ml/min; Glucose 167 mg/dL (74-106); Potassium 4.5 mmol/L (3.5-5.1); Sodium Level 140 mmol/L (136-145)
[2022-11-04 06:12] LABS: Bedside Glucose 172 mg/dL (74-106)
[2022-11-04] MEDS: Multivitamins,Ther W-Minerals Tablet 1 TABLET PO (08:31)
[2022-11-04] MEDS: Insulin Lispro 100 UNIT/ML INSULN.PEN SC ×3 (08:31→18:14)
[2022-11-04] MEDS: Aspirin 81 MG TAB.CHEW PO (08:31)
[2022-11-04] MEDS: Gabapentin 100 MG Capsule PO ×2 (08:31→18:09)
[2022-11-04 11:39] LABS: Bedside Glucose 278 mg/dL (74-106)
[2022-11-04] MEDS: Tuberculin,Purif.prot.deriv. 50 TU/ML Vial 0.1 ML ID (11:41)
--- NOTE | 2022-11-04 12:59 | CASEMGMT ---
Social Work Met with patient to complete initial assessment. Pt known to this worker from previous stay. No changes to assessment. Pt is active with [facility] and [facility]. Educated to [facility] insurance with [employer] 11/08, $0 copays, and continued stay is not guaranteed with each review. Pt states prior to weakness, pt and were getting along well and states the meals and [facility] were helping. SW broached topic of palliative services again. Educated that Dr requested consult with palliative care d/t to rehospitalizations, ongoing symptom management at home. Pt expressed that is his 's decision, but they both do not interruptions or people checking off a box. Validated feelings. Offered to provide options of other palliative companies, if [facility] was not successful the previous times. Encouraged to interview the companies to find what best meets pt's needs. Pt appreciated that idea and will allow this worker to speak with about suggestions. SW will revisit with and not make referral until/if agrees. Discussed code status. Pt wishes to be full code. SW completed new MOLST form and placed in Dr folder. Verified contacts. Pt's goal is to return home with once strength is regained at PLOF. SW will continue to follow for DC planning. Tiffanie Meyers, CONCHA TEJEDAW
[2022-11-04 14:33] VITALS: BP 123/48; PULSE 50; RESP 16; TEMP 36.7; O2SAT 94
[2022-11-04 14:58] VITALS: BP 135/47; PULSE 51
[2022-11-04 17:01] LABS: Bedside Glucose 198 mg/dL (74-106)
[2022-11-04 18:19] VITALS: BP 137/56; PULSE 57
[2022-11-04 21:32] LABS: Bedside Glucose 236 mg/dL (74-106)
[2022-11-04] MEDS: Gabapentin 300 MG Capsule PO (21:54)
[2022-11-04 21:55] VITALS: BP 152/58; PULSE 61
[2022-11-04] MEDS: Latanoprost 0.005% 1 Bottle 1 DRP EACH EYE (21:55)
[2022-11-04] MEDS: Ezetimibe 10 MG Tablet PO (21:57)
[2022-11-04] MEDS: Doxazosin 4 MG Tablet 8 MG PO (21:57)
[2022-11-04] MEDS: Sertraline 50 MG Tablet PO (21:57)
[2022-11-04] MEDS: Pramipexole Di-HCl 0.125 MG Tablet PO (21:57)
[2022-11-05] MEDS: amLODIPine 10 MG Tablet PO (05:15)
[2022-11-05] MEDS: cloNIDine HCl 0.1 MG Tablet PO (05:15)
[2022-11-05] MEDS: Furosemide 40 MG Tablet PO (05:15)
[2022-11-05] MEDS: Carvedilol 6.25 MG Tablet PO (05:15)
[2022-11-05] MEDS: Clopidogrel Bisulfate 75 MG Tablet PO (05:15)
[2022-11-05] MEDS: Losartan Potassium 25 MG Tablet PO (05:15)
[2022-11-05] MEDS: Senna/Docusate Sodium 1 Tablet PO ×2 (05:15→17:52)
[2022-11-05 05:16] VITALS: BP 134/55; PULSE 61
[2022-11-05] MEDS: hydrALAZINE 25 MG Tablet 75 MG PO ×3 (05:16→20:59)
[2022-11-05] MEDS: Insulin Glargine-YFGN 100 UNIT/ML Pen 14 UNIT SC (06:28)
[2022-11-05 06:32] LABS: Bedside Glucose 177 mg/dL (74-106)
[2022-11-05] MEDS: Insulin Lispro 100 UNIT/ML INSULN.PEN SC ×3 (08:04→17:48)
[2022-11-05] MEDS: Multivitamins,Ther W-Minerals Tablet 1 TABLET PO (08:04)
[2022-11-05] MEDS: Gabapentin 100 MG Capsule PO ×2 (08:04→17:51)
[2022-11-05] MEDS: Aspirin 81 MG TAB.CHEW PO (08:04)
--- NOTE | 2022-11-05 08:58 | NURSING ---
Cellular Phone Repairer Note; Activity Asset: Aicha Singh is independent in his choice of daily activities. His and family will visit and bring him items he may need. He has a smartphone and uses a tablet. When not in therapy or visiting w/family he will watch tv, read, use his tablet or rest. At this time he prefers in room activities over group. Staff will remind him of daily activities and respect his right to say no.
[2022-11-05 11:52] LABS: Bedside Glucose 219 mg/dL (74-106)
[2022-11-05 13:30] VITALS: O2SAT 95
[2022-11-05 15:10] VITALS: BP 127/52; PULSE 51
[2022-11-05 16:00] VITALS: RESP 12; TEMP 36.4; O2SAT 95
[2022-11-05 18:00] LABS: Bedside Glucose 193 mg/dL (74-106)
[2022-11-05 20:38] VITALS: PULSE 50
[2022-11-05 20:59] VITALS: BP 132/59; PULSE 52
[2022-11-05] MEDS: Doxazosin 4 MG Tablet 8 MG PO (20:59)
[2022-11-05] MEDS: Latanoprost 0.005% 1 Bottle 1 DRP EACH EYE (21:00)
[2022-11-05] MEDS: Pramipexole Di-HCl 0.125 MG Tablet PO (21:00)
[2022-11-05] MEDS: Sertraline 50 MG Tablet PO (21:00)
[2022-11-05] MEDS: Ezetimibe 10 MG Tablet PO (21:00)
[2022-11-05] MEDS: Gabapentin 300 MG Capsule PO (21:05)
[2022-11-05 21:58] LABS: Bedside Glucose 267 mg/dL (74-106)
[2022-11-06] VITALS (7 sets, daily range): BP systolic 107–149; BP diastolic 44–60; PULSE 49–60; RESP 16–18; TEMP 36.6; O2SAT 90–96
[2022-11-06] MEDS: Furosemide 40 MG Tablet PO (06:36)
[2022-11-06] MEDS: Losartan Potassium 25 MG Tablet PO (06:36)
[2022-11-06] MEDS: cloNIDine HCl 0.1 MG Tablet PO ×2 (06:36→17:34)
[2022-11-06] MEDS: Senna/Docusate Sodium 1 Tablet PO ×2 (06:36→17:34)
[2022-11-06] MEDS: hydrALAZINE 25 MG Tablet 75 MG PO ×2 (06:36→21:13)
[2022-11-06] MEDS: Clopidogrel Bisulfate 75 MG Tablet PO (06:36)
[2022-11-06] MEDS: amLODIPine 10 MG Tablet PO (06:36)
[2022-11-06 06:41] LABS: Bedside Glucose 168 mg/dL (74-106)
[2022-11-06] MEDS: Insulin Glargine-YFGN 100 UNIT/ML Pen 14 UNIT SC (06:41)
[2022-11-06] MEDS: Insulin Lispro 100 UNIT/ML INSULN.PEN SC ×3 (08:48→17:33)
[2022-11-06] MEDS: Gabapentin 100 MG Capsule PO ×2 (08:48→17:34)
[2022-11-06] MEDS: Aspirin 81 MG TAB.CHEW PO (08:48)
[2022-11-06] MEDS: Multivitamins,Ther W-Minerals Tablet 1 TABLET PO (08:48)
--- NOTE | 2022-11-06 08:58 | NURSING ---
held coreg d/t low BP see vitals intervention. pt denies symptoms. sitting in recliner chair, call light in reach.
[2022-11-06 11:36] LABS: Bedside Glucose 163 mg/dL (74-106)
--- NOTE | 2022-11-06 14:00 | NURSING ---
apresoline held d/t low BP and HR
[2022-11-06] MEDS: Carvedilol 6.25 MG Tablet PO (17:34)
[2022-11-06 17:38] LABS: Bedside Glucose 159 mg/dL (74-106)
[2022-11-06] MEDS: Latanoprost 0.005% 1 Bottle 1 DRP EACH EYE (21:13)
[2022-11-06] MEDS: Doxazosin 4 MG Tablet 8 MG PO (21:13)
[2022-11-06] MEDS: Pramipexole Di-HCl 0.125 MG Tablet PO (21:13)
[2022-11-06] MEDS: Ezetimibe 10 MG Tablet PO (21:14)
[2022-11-06] MEDS: Sertraline 50 MG Tablet PO (21:14)
[2022-11-06] MEDS: Gabapentin 300 MG Capsule PO (21:17)
[2022-11-06 22:35] LABS: Bedside Glucose 226 mg/dL (74-106)
[2022-11-07 06:33] VITALS: BP 138/56; PULSE 60
[2022-11-07] MEDS: hydrALAZINE 25 MG Tablet 75 MG PO ×3 (06:33→20:48)
[2022-11-07] MEDS: Losartan Potassium 25 MG Tablet PO (06:33)
[2022-11-07] MEDS: amLODIPine 10 MG Tablet PO (06:35)
[2022-11-07] MEDS: cloNIDine HCl 0.1 MG Tablet PO ×2 (06:35→17:33)
[2022-11-07] MEDS: Senna/Docusate Sodium 1 Tablet PO (06:35)
[2022-11-07] MEDS: Furosemide 40 MG Tablet PO (06:35)
[2022-11-07] MEDS: Carvedilol 6.25 MG Tablet PO ×2 (06:35→17:33)
[2022-11-07] MEDS: Clopidogrel Bisulfate 75 MG Tablet PO (06:36)
[2022-11-07] MEDS: Insulin Glargine-YFGN 100 UNIT/ML Pen 14 UNIT SC (06:36)
[2022-11-07 06:49] VITALS: O2SAT 90
[2022-11-07 06:49] LABS: Bedside Glucose 156 mg/dL (74-106)
[2022-11-07] MEDS: Insulin Lispro 100 UNIT/ML INSULN.PEN SC ×3 (08:21→17:33)
[2022-11-07] MEDS: Multivitamins,Ther W-Minerals Tablet 1 TABLET PO (08:22)
[2022-11-07] MEDS: Aspirin 81 MG TAB.CHEW PO (08:22)
[2022-11-07] MEDS: Gabapentin 100 MG Capsule PO ×2 (08:22→17:33)
[2022-11-07 12:07] LABS: Bedside Glucose 224 mg/dL (74-106)
[2022-11-07 14:57] VITALS: BP 121/44; PULSE 51; RESP 16; TEMP 36.3; O2SAT 95
[2022-11-07 15:00] VITALS: PULSE 51
[2022-11-07 16:52] LABS: Bedside Glucose 276 mg/dL (74-106)
[2022-11-07 20:48] VITALS: BP 147/53; PULSE 56
[2022-11-07] MEDS: Gabapentin 300 MG Capsule PO (20:48)
[2022-11-07] MEDS: Doxazosin 4 MG Tablet 8 MG PO (20:51)
[2022-11-07] MEDS: Sertraline 50 MG Tablet PO (20:52)
[2022-11-07] MEDS: Ezetimibe 10 MG Tablet PO (20:52)
[2022-11-07] MEDS: Pramipexole Di-HCl 0.125 MG Tablet PO (20:52)
[2022-11-07] MEDS: Latanoprost 0.005% 1 Bottle 1 DRP EACH EYE (20:53)
[2022-11-07 21:01] VITALS: PULSE 56; RESP 14; O2SAT 93
[2022-11-07 21:55] LABS: Bedside Glucose 287 mg/dL (74-106)
[2022-11-08] VITALS (7 sets, daily range): BP systolic 128–143; BP diastolic 48–58; PULSE 50–55; RESP 16; TEMP 36.6; O2SAT 91–97
[2022-11-08] MEDS: hydrALAZINE 25 MG Tablet 75 MG PO ×3 (05:26→22:02)
[2022-11-08] MEDS: Carvedilol 6.25 MG Tablet PO ×2 (05:28→22:02)
[2022-11-08] MEDS: Furosemide 40 MG Tablet PO (05:28)
[2022-11-08] MEDS: Senna/Docusate Sodium 1 Tablet PO ×2 (05:28→22:03)
[2022-11-08] MEDS: amLODIPine 10 MG Tablet PO (05:28)
[2022-11-08] MEDS: Losartan Potassium 25 MG Tablet PO (05:28)
[2022-11-08] MEDS: cloNIDine HCl 0.1 MG Tablet PO ×2 (05:28→22:02)
[2022-11-08] MEDS: Clopidogrel Bisulfate 75 MG Tablet PO (05:28)
[2022-11-08 06:44] LABS: Bedside Glucose 182 mg/dL (74-106)
[2022-11-08] MEDS: Insulin Glargine-YFGN 100 UNIT/ML Pen 14 UNIT SC (07:57)
[2022-11-08] MEDS: Multivitamins,Ther W-Minerals Tablet 1 TABLET PO (07:58)
[2022-11-08] MEDS: Aspirin 81 MG TAB.CHEW PO (07:58)
[2022-11-08] MEDS: Gabapentin 100 MG Capsule PO ×2 (07:58→17:53)
[2022-11-08] MEDS: Insulin Lispro 100 UNIT/ML INSULN.PEN SC ×3 (07:58→17:53)
[2022-11-08 12:16] LABS: Bedside Glucose 232 mg/dL (74-106)
--- NOTE | 2022-11-08 12:40 | NURSING ---
Offered covid booster, education about vaccine provided. Patient refuses at this time.
[2022-11-08 16:48] LABS: Bedside Glucose 196 mg/dL (74-106)
[2022-11-08] MEDS: Sertraline 50 MG Tablet PO (22:02)
[2022-11-08] MEDS: Latanoprost 0.005% 1 Bottle 1 DRP EACH EYE (22:03)
[2022-11-08] MEDS: Pramipexole Di-HCl 0.125 MG Tablet PO (22:03)
[2022-11-08] MEDS: Ezetimibe 10 MG Tablet PO (22:03)
[2022-11-08] MEDS: Doxazosin 4 MG Tablet 8 MG PO (22:03)
[2022-11-08] MEDS: Gabapentin 300 MG Capsule PO (22:06)
[2022-11-08 22:24] LABS: Bedside Glucose 292 mg/dL (74-106)
[2022-11-09 05:32] VITALS: BP 135/59; PULSE 46
[2022-11-09] MEDS: hydrALAZINE 25 MG Tablet 75 MG PO ×3 (05:32→21:17)
[2022-11-09 06:41] LABS: Bedside Glucose 168 mg/dL (74-106)
[2022-11-09] MEDS: Multivitamins,Ther W-Minerals Tablet 1 TABLET PO (07:54)
[2022-11-09] MEDS: Aspirin 81 MG TAB.CHEW PO (07:54)
[2022-11-09] MEDS: Insulin Lispro 100 UNIT/ML INSULN.PEN SC ×3 (07:54→17:38)
[2022-11-09] MEDS: Gabapentin 100 MG Capsule PO ×2 (07:54→17:38)
--- NOTE | 2022-11-09 08:13 | PHA.CONS_ITS ---
TCU RX Drug Regimen Review Subjective/Objective Subjective/Objective: Subjective: DERECK is a 82 YOM who presented to the ED on 10/28 with generalized weakness. At this time he was found to have a fever and elevated WBC. The patient was started on empiric ceftriaxone that was discontinued when blood and urine cultures as well as respiratory panel were all negative. The patient is being admitted to TCU for rehab and strengthening prior to returning home with his .?? Objective: Allergies meloxicam [From Mobic] Allergy (Intermediate, Verified 10/28/22 17:41) itching pravastatin [From Pravachol] Adverse Reaction (Mild, Verified 10/28/22 17:41) myalgia cholestyramine Adverse Reaction (Verified 10/28/22 17:41) hypoglycemia Current Medications Generic Name Dose Route Start Last Admin Trade Name Freq PRN Reason Stop Dose Admin Acetaminophen 1,000 mg 11/03/22 20:22 Acetaminophen 500 Mg Tablet PO Q6H PRN PRN Pain Score 1-10 Amlodipine Besylate 10 mg 11/09/22 10:00 Amlodipine 10 Mg Tablet PO DAILY LJ Aspirin 81 mg 11/04/22 08:00 11/09/22 07:54 Aspirin 81 Mg Tab.Chew PO 81 mg BREAKFAST LJ Administration Carvedilol 6.25 mg 11/08/22 22:00 11/08/22 22:02 Carvedilol 6.25 Mg Tablet PO 6.25 mg BID LJ Administration Clonidine 0.1 mg 11/08/22 22:00 11/08/22 22:02 Clonidine Hcl 0.1 Mg Tablet PO 0.1 mg BID LJ Administration Clopidogrel Bisulfate 75 mg 11/09/22 10:00 Clopidogrel Bisulfate 75 Mg Tablet PO DAILY LJ Doxazosin Mesylate 8 mg 11/03/22 22:00 11/08/22 22:03 Doxazosin 4 Mg Tablet PO 8 mg QHS LJ Administration Ezetimibe 10 mg 11/03/22 22:00 11/08/22 22:03 Ezetimibe 10 Mg Tablet PO 10 mg QHS LJ Administration Furosemide 40 mg 11/09/22 10:00 Furosemide 40 Mg Tablet PO DAILY LJ Gabapentin 300 mg 11/03/22 21:00 11/08/22 22:06 Gabapentin 300 Mg Capsule PO 300 mg 2100 LJ Administration Gabapentin 100 mg 11/03/22 17:00 11/09/22 07:54 Gabapentin 100 Mg Capsule PO 100 mg BIDCM LJ Administration Hydralazine HCl 75 mg 11/03/22 22:00 11/09/22 05:32 Hydralazine 25 Mg Tablet PO 75 mg TID LJ Administration Insulin Glargine 14 unit 11/09/22 10:00 Insulin Glargine-Yfgn 100 Unit/Ml Pen SC DAILY [facility] Insulin Human Lispro 4 unit 11/03/22 16:45 11/09/22 07:54 Insulin Lispro 100 Unit/Ml Insuln.Pen SC 4 units TIDAC LJ Administration Latanoprost 1 drp 11/03/22 22:00 11/08/22 22:03 Latanoprost 0.005% 1 Bottle EACH EYE 1 drp HS [facility] Administration Losartan Potassium 25 mg 11/09/22 10:00 Losartan Potassium 25 Mg Tablet PO DAILY LJ Magnesium Citrate 300 ml 11/03/22 20:22 Magnesium Citrate 300 Ml PO DAILY PRN Constipation Multivitamins/Minerals 1 tablet 11/04/22 08:00 11/09/22 07:54 Multivitamins,Ther W-Minerals Tablet PO 1 tablet BREAKFAST [facility] Administration Pramipexole Dihydrochloride 0.125 mg 11/03/22 22:00 11/08/22 22:03 Pramipexole Di-Hcl 0.125 Mg Tablet PO 0.125 mg QHS [facility] Administration Senna/Docusate Sodium 1 tablet 11/08/22 22:00 11/08/22 22:03 Senna/Docusate Sodium 1 Tablet PO 1 tablet BID LJ Administration Sertraline HCl 50 mg 11/03/22 22:00 11/08/22 22:02 Sertraline 50 Mg Tablet PO 50 mg QHS [facility] Administration Sodium Chloride 10 - 40 ml 11/03/22 15:14 0.9% Saline Lock 10 Ml Syringe IV UD PRN SALINE FLUSH Triamcinolone Acetonide 1 applic 11/08/22 22:00 11/08/22 21:22 Triamcinolone Acetonide 0.1% Cream 15 Gm TOPICAL Not Given BID [facility] Protocol Tuberculin PPD 0.1 ml 11/11/22 10:00 Tuberculin,Purif.Prot.Deriv. 50 Tu/Ml Vial ID 11/11/22 10:01 X1 ONE Problem List (Updated 11/03/22 @ 20:[address] Johnathan Huffman MD) Obstructive sleep apnea (Acute) Neuropathic pain (Acute) Left hemiplegia (Acute) Heart failure with preserved ejection fraction (Acute) Weakness (Acute) Fever (Acute) Depression (Acute) Restless leg syndrome (Acute) Glaucoma (Acute) Diabetes mellitus (Acute) Iron deficiency anemia (Acute) Hyperlipidemia (Acute) BPH (benign prostatic hyperplasia) (Acute) Stroke (Acute) Hypertension (Chronic) Debility (Acute) NABILA (acute kidney injury) (Acute) Vital Signs Temp Pulse Resp BP Pulse Ox O2 Del Method 97.9 F 46 L 16 135/59 H 94 Room Air 11/08/22 11:43 11/09/22 05:32 11/08/22 22:12 11/09/22 05:32 11/08/22 22:12 11/08/22 22:12 Oxygen Delivery Method Room Air Weight: 84.822 kg Body Mass Index (BMI) 25.3 Sodium 140 mmol/L (136-145) 11/04/22 05:24 Potassium 4.5 mmol/L (3.5-5.1) 11/04/22 05:24 Chloride 106 mmol/L (98-107) 11/04/22 05:24 Carbon Dioxide 29.0 mmol/L (21.0-32.0) 11/04/22 05:24 Anion Gap 5 (5-15) 11/04/22 05:24 BUN 43 mg/dL (7-18) H 11/04/22 05:24 Creatinine 1.56 mg/dL (0.70-1.30) H 11/04/22 05:24 Est GFR (MDRD) Af Amer 55 mL/min (>60) L 11/04/22 05:24 Est GFR (MDRD) Non-Af 45 mL/min (>60) L 11/04/22 05:24 BUN/Creatinine Ratio 27.6 RATIO (10-20) H 11/04/22 05:24 Glucose 167 mg/dL (74-106) H 11/04/22 05:24 Assessment/Plan: 1. Pain- Tylenol 1,000 mg po q6h prn for pain (1-10). The resident has not had any prn usage of this medication. Continue to monitor for s/s of pain.? ? 2. Hypertension/HFpEF- Carvedilol 6.25 mg po bid, losartan 25 mg po daily, amlodipine 10 mg po daily, clonidine 0.1 mg po bid, hydralazine 75 mg po tid, and furosemide 40 mg po daily. Continue to monitor BP (135/59 mmHg on 11/09), HR (46 bpm on 11/09), serum potassium and sodium (4.5 mmol/L and 140 mmol/L on 11/04), renal function (SCr 1.56 mg/dL, CrCl 39.38 mL/min, and BUN 43 mg/dL on 11/04) and for lower extremity edema.? 3. Stroke- Clopidogrel 75 mg po daily and aspirin 81 mg po daily. Continue to monitor Hgb (9.3 g/dL), Hct (27.9%), RBC (3.07 M/mm3) and for s/s of bleeding.?? 4. Hyperlipidemia- Ezetimibe 10 mg po qhs. Continue to monitor cholesterol levels (last LDL 121 mg/dL on 04/22/21), LFTs (AST 16 U/L, ALT 25 U/L, and ALP 59 U/L on 11/03/22), and for s/s of myopathy.?? 5. BPH- Doxazosin 8 mg po qhs. Continue to monitor BP and for s/s of orthostatic hypotension.? 6. T2DM- Insulin glargine 14 units sc daily and insulin lispro 4 units sc tidac. Continue to monitor blood glucose levels (278 mg/dL on 11/04), A1C (last 6.4% on 01/06/22), and for s/s of hypoglycemia.? 7. Glaucoma- Latanoprost 1 gtt ou qhs. Continue to monitor for blurred vision and stinging/burning sensations.? 8. Restless leg syndrome- Pramipexole 0.125 po qhs. Continue to monitor weight (last 84.8 kg) and for PHARMACY GENERAL MANAGER effects such as drowsiness, confusion, agitation/aggression, and delirium.?? 9. Nutrition- Multivitamin 1 tablet po daily.? 10. Dermatitis- Triamcinolone topical bid to affected areas.?? 11. Bowel- Senna/docusate 1 tablet po bid and magnesium citrate 300 mL po daily prn for constipation. The resident has not had any prn usage of magnesium citrate; she does not have a BM on record since being admitted to TCU. Continue to monitor for s/s of constipation. Assessment/Plan for indications treated with psychotropic medications: 12. Neuropathic pain- Gabapentin po tid (100 mg, 100 mg, then 300 mg). Continue to monitor for PHARMACY GENERAL MANAGER and respiratory depression (Beer?s Criteria) and renal function. Please consider a GDR if appropriate.? 13. Depression- Sertraline 50 mg po qhs. Continue to monitor for s/s of suicidal ideation (Black Box Warning). GDR likely not indicated.? Medical chart and medication regimen reviewed. The following medication irregularities or issues were identified: *1. An A1C has not been recorded since 01/06/22. The patient?s blood glucose levels are almost consistently > 200. Please consider evaluating and increasing mealtime or basal insulin dose if clinically appropriate. *2. The resident has a diagnosis of chronic anemia and a Hgb 9.3 g/dL, Hct 27.9%, and RBC 3.07 M/mm3. Per chart review, he was taking iron in the past, but is not currently taking it. Please evaluate and restart iron supplementation if clinically appropriate.? Date Date of Note:: 11/09/22
[2022-11-09] MEDS: Carvedilol 6.25 MG Tablet PO (09:31)
[2022-11-09] MEDS: cloNIDine HCl 0.1 MG Tablet PO ×2 (09:31→21:18)
[2022-11-09] MEDS: Furosemide 40 MG Tablet PO (09:32)
[2022-11-09] MEDS: amLODIPine 10 MG Tablet PO (09:32)
[2022-11-09] MEDS: Losartan Potassium 25 MG Tablet PO (09:32)
[2022-11-09] MEDS: Clopidogrel Bisulfate 75 MG Tablet PO (09:33)
[2022-11-09] MEDS: Insulin Glargine-YFGN 100 UNIT/ML Pen 14 UNIT SC (09:34)
--- NOTE | 2022-11-09 10:45 | CASEMGMT ---
Social Work Insurance issued LCD 11/11, DC 11/12. SW spoke with pt about DC plans. Pt agreeable for DC and states he is ready to DC home. SW offered HHC vs OP. Pt continues to state he and his do not like people in their home and would prefer to remain with [facility]. No DME needs. SW updated CCN. Faxed referral to [facility] for PT/OT. BIMS () and PHQ-9 () completed for MDS assessment. Plan: DC home with 11/12, [facility] PT/OT, CCN Tiffanie Meyers, BRAKE ADJUSTER SCIENTIFIC RESEARCH MANAGER
[2022-11-09 11:07] VITALS: BP 130/60; PULSE 51
[2022-11-09 11:55] LABS: Bedside Glucose 231 mg/dL (74-106)
[2022-11-09 14:23] VITALS: BP 126/47; PULSE 52
[2022-11-09 14:26] VITALS: RESP 20; O2SAT 95
[2022-11-09 15:15] VITALS: BMI 25.9
[2022-11-09 16:00] VITALS: TEMP 36.4
[2022-11-09 16:55] LABS: Bedside Glucose 210 mg/dL (74-106)
[2022-11-09 17:16] VITALS: BMI 25.9
--- NOTE | 2022-11-09 20:56 | DS.PCM_ITS ---
Providers Date of Admission: 11/03/22 Primary Care Physician: Dr. Jennifer Watt MD Reason For Visit: GENRALIZAED WEAKNESS Diagnosis Discharge Diagnosis (1) Debility: Status: Acute Code(s): R53.81 - Other malaise (2) Weakness: Status: Acute Code(s): R53.1 - Weakness (3) Fever: Status: Acute Code(s): R50.9 - Fever, unspecified Qualifiers: Fever type: unspecified Qualified Code(s): R50.9 - Fever, unspecified (4) NABILA (acute kidney injury): Status: Acute Code(s): N17.9 - Acute kidney failure, unspecified (5) Heart failure with preserved ejection fraction: Status: Acute Code(s): I50.30 - Unspecified diastolic (congestive) heart failure (6) Iron deficiency anemia: Status: Acute Code(s): D50.9 - Iron deficiency anemia, unspecified (7) Hypertension: Status: Chronic Code(s): I10 - Essential (primary) hypertension (8) Stroke: Status: Acute Code(s): I63.9 - Cerebral infarction, unspecified (9) Left hemiplegia: Status: Acute Code(s): G81.94 - Hemiplegia, unspecified affecting left nondominant side (10) BPH (benign prostatic hyperplasia): Status: Acute Code(s): N40.0 - Benign prostatic hyperplasia without lower urinary tract symptoms (11) Hyperlipidemia: Status: Acute Code(s): E78.5 - Hyperlipidemia, unspecified (12) Neuropathic pain: Status: Acute Code(s): M79.2 - Neuralgia and neuritis, unspecified (13) Diabetes mellitus: Status: Acute Code(s): E11.9 - Type 2 diabetes mellitus without complications (14) Glaucoma: Status: Acute Code(s): H40.9 - Unspecified glaucoma (15) Restless leg syndrome: Status: Acute Code(s): G25.81 - Restless legs syndrome (16) Depression: Status: Acute Code(s): F32.A - Depression, unspecified (17) Obstructive sleep apnea: Status: Acute Code(s): G47.33 - Obstructive sleep apnea (adult) (pediatric) Plan 82 year old male with below past medical history hospitalized for weakness, fever, acute kidney injury, admitted to TCU with debility, here for rehabilitation, strengthening, prior to discharge home with . * Debility - PT/OT. * Pain - Tylenol 1000mg q6h prn pain (1-10). * Bowel - senna/colace 1 tablet bid, Magnesium citrate 300ml daily prn. * Adult immunization - Administer pneumonia vaccine, covid19 vaccine, flu vaccine as appropriate. * DVT prophylaxis - Hold, dual antiplatelet therapy. * Hypertension - Coreg 6.25mg bid, Losartan 25mg daily, Amlodipine 10mg daily, Clonidine 0.1mg bid, Hydralazine 75mg tid. * Stroke - Plavix 75mg daily, Aspirin 81mg daily. * BPH - Doxazosin 8mg qhs. * Hyperlipidemia - Zetia 10mg qhs. * Heart failure preserved ejection fraction - Coreg 6.25mg bid, Losartan 25mg daily, Hydralazine 75mg tid, Furosemide 40mg daily. * Neuropathic pain - Gabapentin 100mg, 100mg, 300mg. * Diabetes Mellitus II - Glargine 14 units daily, Lispro 4 units tidac. * Glaucoma - Latanoprost 1gtt ou qhs. * Nutrition - MVI 1 tablet daily. * Restless leg syndrome - Mirapex 0.125mg qhs. * Depression - Sertraline 50mg qhs. * Dermatitis - Triamcinolone topical bid. Medications at Discharge Home Medications multivitamin,[id number]-[id number] (Complete Multivitamin tablet) 1 tab PO QDAY supplement 03/03/17 aspirin 81 mg chewable tablet 81 mg PO BREAKFAST heart health 01/02/21 Handicap Placard #1 ea 02/12/21 doxazosin 8 mg tablet 8 mg PO QHS bph 02/24/22 ezetimibe 10 mg tablet (Zetia) 10 mg PO QHS cholesterol 02/24/22 latanoprost 0.005 % eye drops 1 drp EACH EYE HS eyes 02/24/22 pramipexole 0.125 mg tablet 0.125 mg PO QHS parkinsons 02/24/22 sertraline 50 mg tablet 50 mg PO QHS mood 02/24/22 gabapentin 100 mg capsule 100 mg PO BID pain #180 caps 03/18/22 gabapentin 300 mg capsule 300 mg PO 2100 pain #90 caps 03/18/22 losartan 25 mg tablet 25 mg PO DAILY BP 04/12/22 clopidogrel 75 mg tablet (Plavix) 75 mg PO DAILY blood thinner #90 tabs 06/07/22 pen needle, diabetic 32 gauge x 5/32 (BD Sanaz 2nd Gen Pen Needle) #50 ea 06/17/22 clonidine HCl 0.1 mg tablet 0.1 mg PO BID heart #60 tabs 07/09/22 furosemide 40 mg tablet (Lasix) 40 mg PO DAILY water pill #60 tabs 08/03/22 hydralazine 25 mg tablet 75 mg (3 x 25 mg) PO TID BP #270 tabs 08/05/22 carvedilol 6.25 mg tablet 6.25 mg PO BID heart #60 tabs 08/12/22 amlodipine 10 mg tablet 10 mg PO DAILY BP #90 tabs 10/15/22 oxygen #1 ea 10/26/22 insulin glargine 100 unit/mL (3 mL) subcutaneous pen (Basaglar KwikPen U-100 Insulin) 14 unit (0.14 mL) subcut DAILY blood sugar #15 mL 11/03/22 insulin lispro 100 unit/mL subcutaneous pen (Humalog KwikPen (U-100) Insulin) 4 unit (0.04 mL) subcut TIDAC PRN diabetes #15 mL 11/03/22 Hospital Course Operations None Procedures None Summary of Care Provided Minutes Spent on Discharge: 35 Hospital Course: 82 year old male with below past medical history hospitalized for weakness, fever, acute kidney injury, admitted to TCU with debility, here for rehab ilitation, strengthening, prior to discharge home with . Discharge home with 11/12/2022, [facility] PT/OT, CCN. Physical Exam Const alert General Appearance: cooperative HEENT normocephalic Eyes PERRL and EOMs intact bilaterally Neck supple, no JVD and no carotid bruits Resp normal respiratory effort, normal air movement and clear to auscultation bilaterally Cardio regular rate and regular rhythm GI normal to inspection, nondistended, normoactive bowel sounds, non-tender and non-distended Extremity normal capillary refill General Extremity: Negative for edema Skin no rashes or lesions noted General Skin Exam: no breakdown Psych affect normal Appearance: appropriate Weight / BMI Weight Weight: 87.09 kg Body Mass Index (BMI) 25.9 ABG / Lab / Microbiology Data 11/04/22 05:24 11/04/22 05:24 Laboratory: Laboratory Results - last 24 hr 11/08/22 22:01: POC Glucose 292 H 11/09/22 06:16: POC Glucose 168 H 11/09/22 11:17: POC Glucose 231 H 11/09/22 16:28: POC Glucose 210 H D/C Instructions Discharge Diet: No restrictions Discharge Activity: Return to Normal Activity, May Shower and Use Walker Weight Bearing Status: Weight bearing as tolerated Call your doctor if you observe: Fever of 101 or Higher, Inability to urinate, Inability to have a bowel movement, Shortness of breath, Dizziness, Fainting spells, Swelling in the ankles, Chest pain and Uncontrolled pain Additional Instructions: rge home with 11/12/2022, [facility] PT/OT, CCN. Please Follow Up With: Jennifer Watt MD When: Within 1 week. Meaningful Use Info Meaningful Use Diagnoses (Choose all that apply): None applicable Discharge Plan Admission Admit Date/Time: 11/03/22 14:30 Primary Reason for Your Visit: Debility. Attending Provider: Johnathan Huffman Chi Primary Care Provider: Jennifer Watt Instructions Additional Instructions / Restrictions: Discharge home with 11/12/2022, [facility] PT/OT, CCN. Discharge Orders/Prescriptions Prescriptions: Continued multivitamin,bp-rbzq-[id number] tablet tablet 1 tab PO QDAY furosemide [Lasix] 40 mg tablet 40 mg PO DAILY Qty: 60 3RF aspirin 81 mg tablet,chewable 81 mg PO BREAKFAST latanoprost 0.005 % drops 1 drp EACH EYE HS doxazosin 8 mg tablet 8 mg PO QHS pramipexole 0.125 mg tablet 0.125 mg PO QHS sertraline 50 mg tablet 50 mg PO QHS ezetimibe [Zetia] 10 mg tablet 10 mg PO QHS Rx Instructions: take at bedtime losartan 25 mg tablet 25 mg PO DAILY insulin lispro [Humalog KwikPen Insulin] 100 unit/mL insulin pen 4 unit subcut TIDAC PRN (Reason: diabetes) Qty: 15 0RF Patient Comments: if bs over 130 insulin glargine [Basaglar KwikPen U-100 Insulin] 100 unit/mL (3 mL) insulin pen 14 unit subcut DAILY Qty: 15 6RF gabapentin 100 mg capsule 100 mg PO BID Qty: 180 3RF gabapentin 300 mg capsule 300 mg PO 2100 Qty: 90 3RF clopidogrel [Plavix] 75 mg tablet 75 mg PO DAILY Qty: 90 3RF clonidine HCl 0.1 mg tablet 0.1 mg PO BID Qty: 60 11RF hydralazine 25 mg tablet 75 mg PO TID Qty: 270 3RF carvedilol 6.25 mg tablet 6.25 mg PO BID Qty: 60 11RF Rx Instructions: must administer with a meal/food amlodipine 10 mg tablet 10 mg PO DAILY Qty: 90 3RF Discontinued triamcinolone acetonide 0.1 % cream 1 applic topical BID 10 Days Qty: 30 1RF No Action (DME) Handicap Placard See Rx Instructions .Route .MEDSUPPLY Qty: 1 0RF Rx Instructions: Length of time: 5 years (DME) pen needle, diabetic [BD Sanaz 2nd Gen Pen Needle] 32 gauge x 5/32 needle See Rx Instructions .ROUTE .MEDSUPPLY Qty: 50 2RF Rx Instructions: use once daily to adminster insulin as directed. (DME) oxygen See Rx Instructions .Route .MEDSUPPLY Qty: 1 0RF Rx Instructions: DC ALL OXYGEN ORDERS Referrals / Follow Up: Jennifer Watt MD [Primary Care Provider] - Disposition Disposition (needs filled in before D/C Order can be placed): Home, Self Care
[2022-11-09 21:17] VITALS: BP 144/50; PULSE 51
[2022-11-09] MEDS: Ezetimibe 10 MG Tablet PO (21:17)
[2022-11-09] MEDS: Sertraline 50 MG Tablet PO (21:17)
[2022-11-09] MEDS: Latanoprost 0.005% 1 Bottle 1 DRP EACH EYE (21:17)
[2022-11-09] MEDS: Pramipexole Di-HCl 0.125 MG Tablet PO (21:18)
[2022-11-09] MEDS: Gabapentin 300 MG Capsule PO (21:18)
[2022-11-09] MEDS: Doxazosin 4 MG Tablet 8 MG PO (21:18)
[2022-11-09 21:39] LABS: Bedside Glucose 274 mg/dL (74-106)
[2022-11-10 06:00] VITALS: BP 98/48; PULSE 52
[2022-11-10 06:04] VITALS: BP 98/48; PULSE 52
[2022-11-10] MEDS: hydrALAZINE 25 MG Tablet 75 MG PO ×3 (06:04→20:26)
[2022-11-10 06:42] LABS: Bedside Glucose 165 mg/dL (74-106)
[2022-11-10] MEDS: Insulin Lispro 100 UNIT/ML INSULN.PEN SC ×3 (08:02→17:44)
[2022-11-10] MEDS: Aspirin 81 MG TAB.CHEW PO (08:04)
[2022-11-10] MEDS: Multivitamins,Ther W-Minerals Tablet 1 TABLET PO (08:04)
[2022-11-10] MEDS: Gabapentin 100 MG Capsule PO ×2 (08:06→17:43)
[2022-11-10] MEDS: Insulin Glargine-YFGN 100 UNIT/ML Pen 14 UNIT SC (10:57)
[2022-11-10] MEDS: Losartan Potassium 25 MG Tablet PO (10:59)
[2022-11-10] MEDS: amLODIPine 10 MG Tablet PO (10:59)
[2022-11-10] MEDS: Clopidogrel Bisulfate 75 MG Tablet PO (10:59)
[2022-11-10] MEDS: Furosemide 40 MG Tablet PO (10:59)
[2022-11-10] MEDS: cloNIDine HCl 0.1 MG Tablet PO ×2 (11:00→20:28)
[2022-11-10] MEDS: Carvedilol 6.25 MG Tablet PO ×2 (11:00→20:27)
[2022-11-10 11:05] VITALS: BP 138/51; PULSE 53
[2022-11-10 12:08] LABS: Bedside Glucose 239 mg/dL (74-106)
--- NOTE | 2022-11-10 13:30 | CASEMGMT ---
Social Work IDT met with patient and for care plan meeting. Discussed patient's progress in PT/OT/ST/SN. Confirmed DC home 11/12 with [email or web address] PT/OT. However, pt and both stated they are choosing not to pursue OP therapy citing irreconcilable differences with the therapists. Both praise the nurse visiting weekly from [facility]. No DME needs. to transport. SW canceled [email or web address] appts. Tiffanie Meyers, BRIDGE INSPECTOR HEALTH SAFETY COORDINATOR
[2022-11-10 13:52] VITALS: BP 127/56; PULSE 53
[2022-11-10 14:33] VITALS: BP 127/56; PULSE 53; RESP 16; TEMP 36.4; O2SAT 95
[2022-11-10 16:44] LABS: Bedside Glucose 268 mg/dL (74-106)
[2022-11-10 20:26] VITALS: BP 141/56; PULSE 61
[2022-11-10] MEDS: Gabapentin 300 MG Capsule PO (20:26)
[2022-11-10] MEDS: Sertraline 50 MG Tablet PO (20:27)
[2022-11-10] MEDS: Pramipexole Di-HCl 0.125 MG Tablet PO (20:27)
[2022-11-10] MEDS: Doxazosin 4 MG Tablet 8 MG PO (20:28)
[2022-11-10] MEDS: Latanoprost 0.005% 1 Bottle 1 DRP EACH EYE (20:29)
[2022-11-10] MEDS: Triamcinolone Acetonide 0.1% Cream 15 gm 1 APPLIC TOPICAL (20:30)
[2022-11-10] MEDS: Ezetimibe 10 MG Tablet PO (20:31)
[2022-11-10 21:36] LABS: Bedside Glucose 227 mg/dL (74-106)
[2022-11-11 05:57] LABS: Absolute Lymphocyte Count 1.61 X10^3/uL (0.83-4.51); Absolute Neutrophil Count 5.8 X10^3/uL (2.0-7.7); Basophil% 1.1 % (0-1); Eosinophil# 0.53 X10^3/uL; Eosinophils% 5.8 % (0-5); Hematocrit 27.7 % (40-54); Hemoglobin 9.2 g/dL (13.0-16.5); Lymphocyte # 1.61 X10^3/ul (0.83-4.51); Lymphocyte % 17.7 % (19-41); Mean Corp Hgb Conc 33.2 g/dL (32-36); Mean Corpuscular Hgb 30.4 pg (27.0-32.0); Mean Corpuscular Volume 91.4 fL (80-94); Mean Platelet Vol. 10.1 fl (6.2-12.0); Monocyte# 0.94 X10^3/uL; Monocyte% 10.4 % (0-10); NRBC Flagged by Analyzer 0 % (0-5); Neutrophil # 5.83 X10^3/uL (2.7-7.7); Neutrophil % 64.2 % (47-70); Platelet Count 372 K/mm3 (150-450); RBC Distribution Width CV 14.5 % (11.6-14.6); Red Blood Count 3.03 M/mm3 (4.6-6.2); White Blood Count 9.1 K/mm3 (4.4-11.0)
[2022-11-11 06:21] LABS: Anion Gap 6 (5-15); BUN 57 mg/dL (7-18); BUN/Creat Ratio 27.8 RATIO (10-20); Calcium,Total 8.6 mg/dL (8.5-10.1); Chloride 101 mmol/L (98-107); Creatinine, Serum 2.05 mg/dL (0.70-1.30); EST Glomerular Filtration Rate 33 mL/min (>60); Est Glom Filt Rate - Afr Amer 40 mL/min (>60); Estimated Creatinine Clearance 29.97 ml/min; Glucose 166 mg/dL (74-106); Potassium 4.3 mmol/L (3.5-5.1); Sodium Level 137 mmol/L (136-145)
[2022-11-11 06:37] VITALS: BP 144/65; PULSE 67
[2022-11-11] MEDS: hydrALAZINE 25 MG Tablet 75 MG PO ×3 (06:37→21:54)
[2022-11-11] MEDS: Insulin Lispro 100 UNIT/ML INSULN.PEN SC ×3 (06:37→17:53)
[2022-11-11 06:49] LABS: Bedside Glucose 168 mg/dL (74-106)
[2022-11-11] MEDS: Gabapentin 100 MG Capsule PO ×2 (08:20→17:54)
[2022-11-11] MEDS: Aspirin 81 MG TAB.CHEW PO (08:20)
[2022-11-11] MEDS: Multivitamins,Ther W-Minerals Tablet 1 TABLET PO (08:20)
[2022-11-11] MEDS: Carvedilol 6.25 MG Tablet PO ×2 (10:01→21:55)
[2022-11-11] MEDS: Losartan Potassium 25 MG Tablet PO (10:01)
[2022-11-11] MEDS: cloNIDine HCl 0.1 MG Tablet PO ×2 (10:01→21:54)
[2022-11-11] MEDS: amLODIPine 10 MG Tablet PO (10:01)
[2022-11-11] MEDS: Clopidogrel Bisulfate 75 MG Tablet PO (10:01)
[2022-11-11] MEDS: Furosemide 40 MG Tablet PO (10:01)
[2022-11-11] MEDS: Insulin Glargine-YFGN 100 UNIT/ML Pen 14 UNIT SC (10:03)
[2022-11-11 10:07] VITALS: BP 122/89; PULSE 53; RESP 18; TEMP 36.3; O2SAT 95
[2022-11-11 10:10] VITALS: PULSE 53; RESP 16; O2SAT 95
[2022-11-11 12:16] LABS: Bedside Glucose 209 mg/dL (74-106)
[2022-11-11 14:00] VITALS: BP 118/36; PULSE 55
[2022-11-11 14:13] VITALS: BP 118/36; PULSE 55
[2022-11-11 16:28] LABS: Bedside Glucose 176 mg/dL (74-106)
--- NOTE | 2022-11-11 18:04 | NURSING ---
message left with Dr Gonsalez office for f/u regarding whether pt should take proscar & flomax. pt has been off them while on TCU. wanting to know for Discharge.
[2022-11-11] MEDS: Gabapentin 300 MG Capsule PO (21:53)
[2022-11-11 21:54] VITALS: BP 138/68; PULSE 58
[2022-11-11] MEDS: Latanoprost 0.005% 1 Bottle 1 DRP EACH EYE (21:54)
[2022-11-11] MEDS: Doxazosin 4 MG Tablet 8 MG PO (21:55)
[2022-11-11] MEDS: Ezetimibe 10 MG Tablet PO (21:55)
[2022-11-11] MEDS: Pramipexole Di-HCl 0.125 MG Tablet PO (21:55)
[2022-11-11] MEDS: Sertraline 50 MG Tablet PO (21:55)
[2022-11-11 22:08] LABS: Bedside Glucose 200 mg/dL (74-106)
[2022-11-12 06:26] VITALS: BP 137/62; PULSE 56
[2022-11-12] MEDS: hydrALAZINE 25 MG Tablet 75 MG PO (06:26)
[2022-11-12 06:36] VITALS: BP 137/62; PULSE 56; RESP 14; TEMP 36.8; O2SAT 98
[2022-11-12 06:36] LABS: Bedside Glucose 157 mg/dL (74-106)
[2022-11-12 06:37] VITALS: PULSE 56; RESP 16
[2022-11-12] MEDS: Insulin Lispro 100 UNIT/ML INSULN.PEN SC ×2 (07:52→12:08)
[2022-11-12 08:59] VITALS: BP 120/54; PULSE 53; RESP 17; TEMP 36.1; O2SAT 97
[2022-11-12] MEDS: Multivitamins,Ther W-Minerals Tablet 1 TABLET PO (09:05)
[2022-11-12] MEDS: Furosemide 40 MG Tablet PO (09:05)
[2022-11-12] MEDS: cloNIDine HCl 0.1 MG Tablet PO (09:05)
[2022-11-12] MEDS: Insulin Glargine-YFGN 100 UNIT/ML Pen 14 UNIT SC (09:05)
[2022-11-12] MEDS: Losartan Potassium 25 MG Tablet PO (09:05)
[2022-11-12] MEDS: amLODIPine 10 MG Tablet PO (09:05)
[2022-11-12] MEDS: Gabapentin 100 MG Capsule PO (09:05)
[2022-11-12] MEDS: Carvedilol 6.25 MG Tablet PO (09:05)
[2022-11-12] MEDS: Aspirin 81 MG TAB.CHEW PO (09:05)
[2022-11-12] MEDS: Clopidogrel Bisulfate 75 MG Tablet PO (09:06)
[2022-11-12 14:35] LABS: Bedside Glucose 230 mg/dL (74-106)
--- NOTE | 2022-11-16 07:14 | MDS.RN ---
Information for the mds was obtained from review of the clinical record, interview of resident, staff, and direct observation of resident's care.
== END 2022-11-12 13:30 | disposition home or self-care (01) | DRG 683 ==
PROVIDERS: Admitting Provider Family Medicine Geriatric Medicine; PCP Internal Medicine; Visit Provider Family Medicine Geriatric Medicine
DX: N17.9 Acute kidney failure, unspecified (principal); I69.354 Hemiplegia and hemiparesis following cerebral infarction affecting left non-dominant side; I50.32 Chronic diastolic (congestive) heart failure; E11.40 Type 2 diabetes mellitus with diabetic neuropathy, unspecified; E11.51 Type 2 diabetes mellitus with diabetic peripheral angiopathy without gangrene; I11.0 Hypertensive heart disease with heart failure; E11.39 Type 2 diabetes mellitus with other diabetic ophthalmic complication; Z79.4 Long term (current) use of insulin; G25.81 Restless legs syndrome; F32.A Depression, unspecified; G47.33 Obstructive sleep apnea (adult) (pediatric); I25.10 Atherosclerotic heart disease of native coronary artery without angina pectoris; E78.5 Hyperlipidemia, unspecified; I69.392 Facial weakness following cerebral infarction; L30.9 Dermatitis, unspecified; H40.9 Unspecified glaucoma; N40.0 Benign prostatic hyperplasia without lower urinary tract symptoms; Z79.02 Long term (current) use of antithrombotics/antiplatelets; Z79.82 Long term (current) use of aspirin; Z79.899 Other long term (current) drug therapy
CPT/HCPCS: 36415; 80048; 82962; 85025; 92523; 92526; 92610; 94667; 94668; 97110; 97112; 97162; 97166; 97530; 97535; 97802; 99252; G0463

== ENCOUNTER → 2022-11-24 | Outpatient (CLI) | payer MEDICARE, SELFPAY ==
--- NOTE | 2022-11-24 13:50 | ART_ITS ---
Reason For Study: Stricture of Artery Procedure A bilateral lower extremity continuous wave Doppler with analog waveform analysis and ankle brachial indexes. Left Segmental Pressures Left posterior tibial artery = 45mmHg. Left dorsalis pedis artery = 25mmHg. Left digit = 25 mmHg. The left posterior tibial artery waveforms are monophasic. The left dorsalis pedis waveforms are monophasic. Right Segmental Pressures Right brachial= 136mmHg. Right posterior tibial artery = 67mmHg. Right dorsalis pedis artery = 52mmHg. Right digit = 31 mmHg. The right posterior tibial artery waveforms are monophasic. The right dorsalis pedis waveforms are monophasic. Indices The right ankle brachial index by the posterior tibial artery is 0.49. The right ankle brachial index by the dorsalis pedis is 0.38. The right digital-brachial index is 0.23. The left ankle brachial index by the posterior tibial artery is 0.33. The left ankle brachial index by the dorsalis pedis is 0.63. The left digital-brachial index is 0.18. VL/Ankle Brachial Index Interpretation Summary Bilateral moderate occlusive disease with monophasic flow and YANETH 0.49 and 0.63 . Ordering Physician: MD Gumaro Tapia Referring Physician: Jennifer Watt M.D. Performed By: Layton Barrios RVT
== END | disposition home or self-care (01) ==
LOC: CVS 13:48
PROVIDERS: PCP Internal Medicine; Referring Provider Surgery Vascular Surgery; Visit Provider Surgery Vascular Surgery
DX: I73.9 Peripheral vascular disease, unspecified (principal); I10 Essential (primary) hypertension
CPT/HCPCS: 93922

== ENCOUNTER → 2022-12-16 | Outpatient (CLI) | payer MEDICARE, SELFPAY ==
--- NOTE | 2022-12-16 15:07 | CDU_ITS ---
Reason For Study: carotid stenosis Rt. Velocities/BP Lt. Velocities/BP Prox CCA 104.4/11.3 cm/sec. Prox CCA 113.8/18.0 cm/sec. Mid CCA 101.4/13.5 cm/sec. Mid CCA 105.2/19.2 cm/sec. Dist CCA 80.6/14.6 cm/sec. Dist CCA 78.2/13.1 cm/sec. Prox ICA 166.1/21.2 cm/sec. Prox ICA 167.6/32.8 cm/sec. Mid ICA 115.6/23.4 cm/sec. Mid ICA 123.6/21.3 cm/sec. Dist ICA 101.6/23.1 cm/sec. Dist ICA 75.0/15.5 cm/sec. Rt. ICA/CCA = 1.6. Lt. ICA/CCA = 1.6. Prox ECA 209.2/9.4 cm/sec. Prox ECA 240.1/9.5 cm/sec. Rt. Vert. 65.6/7.3 cm/sec. Lt. Vert. 92.5/23.1 cm/sec. Right Extracranial There is intimal thickening but no significant atherosclerotic plaque noted in the right common carotid artery. There is heterogeneous, irregular atherosclerotic plaque noted in the right internal carotid artery. There is heterogeneous, irregular atherosclerotic plaque noted in the right external carotid artery. Antegrade flow is noted in the right vertebral artery. Left Extracranial There is heterogeneous, irregular atherosclerotic plaque noted in the left common carotid artery. There is heterogeneous, irregular atherosclerotic plaque noted in the left internal carotid artery. There is heterogeneous, irregular atherosclerotic plaque noted in the left external carotid artery. Antegrade flow is noted in the left vertebral artery. Procedure Carotid Duplex [id number]. This is a Carotid Duplex examination using B-mode, color flow and specral Doppler. The exam was diagnostic. Exam performed in department. VL/Carotid Duplex Ultrasound Interpretation Summary Irregular calcific plaque with shadowing at the proximal right internal carotid artery with 50 to 69% stenosis Greater than 50% stenosis right external carotid artery Irregular calcific plaque with shadowing at the proximal left internal carotid artery with 50 to 69% stenosis Greater than 50% stenosis left external carotid artery Patent and antegrade vertebral arteries bilaterally Progression of disease involving bilateral internal carotid arteries and mail manager al carotid arteries is identified from the previous examination of October 20, 2021 Ordering Physician: Jennifer Watt Referring Physician: Jennifer Watt Performed By: Orestes Topete RVT
== END | disposition home or self-care (01) ==
LOC: CVS 15:03
PROVIDERS: PCP Internal Medicine; Referring Provider Internal Medicine; Visit Provider Internal Medicine
DX: I65.23 Occlusion and stenosis of bilateral carotid arteries (principal); I10 Essential (primary) hypertension
CPT/HCPCS: 93880

== ENCOUNTER 2022-12-21 11:58 | Outpatient (CLI) | payer MEDICARE, SELFPAY ==
[2022-12-21 12:27] VITALS: BP 125/53; PULSE 52; RESP 16; TEMP 35.8; O2SAT 96; BMI 24.4
[2022-12-21] MEDS: Iron Sucrose Complex 300 MG in 0.9% Normal Saline (250mL Bag) 250 ML 177 MG IV (12:35)
[2022-12-21 15:05] VITALS: BP 139/65; PULSE 62; RESP 16
== END 2022-12-21 11:59 | disposition home or self-care (01) ==
PROVIDERS: PCP Internal Medicine; Referring Provider Psychiatry & Neurology Neurology; Visit Provider Psychiatry & Neurology Neurology
DX: D50.9 Iron deficiency anemia, unspecified (principal)
CPT/HCPCS: 96365; 96366; J1756; J7050; A4216

== ENCOUNTER 2023-01-04 12:20 | Outpatient (CLI) | payer MEDICARE, SELFPAY ==
[2023-01-04 12:57] VITALS: BP 149/50; PULSE 55; RESP 16; TEMP 36.3; O2SAT 95; BMI 25.0
[2023-01-04] MEDS: Iron Sucrose Complex 300 MG in 0.9% Normal Saline (250mL Bag) 250 ML 177 MG IV (13:00)
[2023-01-04 15:05] VITALS: BP 149/50; PULSE 55; RESP 16; TEMP 36.3; O2SAT 95
== END 2023-01-04 12:21 | disposition home or self-care (01) ==
LOC: MEDOUTP 12:20
PROVIDERS: PCP Internal Medicine; Referring Provider Psychiatry & Neurology Neurology; Visit Provider Psychiatry & Neurology Neurology
DX: D50.9 Iron deficiency anemia, unspecified (principal)
CPT/HCPCS: 96365; 96366; J1756; J7050; A4216

== ENCOUNTER 2023-01-12 12:30 | Observation (INO) | payer MEDICARE, SELFPAY ==
[2023-01-06 13:36] LABS: Absolute Lymphocyte Count 1.43 X10^3/uL (0.83-4.51); Absolute Neutrophil Count 5.6 X10^3/uL (2.0-7.7); Basophil# 0.09 X10^3/uL; Eosinophil# 0.54 X10^3/uL; Eosinophils% 6.2 % (0-5); Hematocrit 35.4 % (40-54); Hemoglobin 11.4 g/dL (13.0-16.5); Lymphocyte # 1.43 X10^3/ul (0.83-4.51); Lymphocyte % 16.5 % (19-41); Mean Corp Hgb Conc 32.2 g/dL (32-36); Mean Corpuscular Hgb 30.2 pg (27.0-32.0); Mean Corpuscular Volume 93.7 fL (80-94); Mean Platelet Vol. 10.9 fl (6.2-12.0); Monocyte% 11.5 % (0-10); NRBC Flagged by Analyzer 0 % (0-5); Neutrophil # 5.59 X10^3/uL (2.7-7.7); Neutrophil % 64.5 % (47-70); Platelet Count 233 K/mm3 (150-450); RBC Distribution Width CV 15.3 % (11.6-14.6); RBC Distribution Width SD 52.4 fl (35.1-43.9); Red Blood Count 3.78 M/mm3 (4.6-6.2); White Blood Count 8.7 K/mm3 (4.4-11.0)
[2023-01-06 13:47] LABS: Prothrombin Time (Protime)PT. 13.6 SECONDS (11.7-14.9)
[2023-01-06 13:48] LABS: Partial Thromboplast Time 30.5 Seconds (24.1-36.2)
[2023-01-06 14:11] LABS: Vitamin D,25 Hydroxy 63.3 ng/mL
[2023-01-06 14:15] LABS: ALB/GLOB Ratio 0.9 RATIO (0.9-2.4); AST(SGOT) 10 U/L (15-37); Alanine Aminotransfer ALT/SGPT 18 U/L (16-61); Albumin, Serum 3.4 g/dL (3.2-5.0); Alkaline Phosphatase 64 U/L (45-117); Anion Gap 6 (5-15); BUN 31 mg/dL (7-18); BUN/Creat Ratio 17.7 RATIO (10-20); Chloride 100 mmol/L (98-107); Cholesterol 139 mg/dL (200); Creatinine, Serum 1.75 mg/dL (0.70-1.30); EST Glomerular Filtration Rate 40 mL/min (>60); Est Glom Filt Rate - Afr Amer 48 mL/min (>60); Globulin 3.9 g/dL (2.2-4.2); Glucose 178 mg/dL (74-106); High Density Lipoprotein 36 mg/dL; Potassium 3.9 mmol/L (3.5-5.1); Protein, Total 7.3 g/dL (6.4-8.2); Sodium Level 139 mmol/L (136-145); Thyroid Stim Hormone (TSH) 1.49 uIU/mL (0.358-3.74); Triglycerides 181 mg/dL; Very Low Density Lipoprotein 36 mg/dL (5-40)
[2023-01-06 18:34] LABS: Hemoglobin A1c 6.4 % (3.8-5.6)
[2023-01-12] VITALS (12 sets, daily range): BP systolic 119–152; BP diastolic 29–73; PULSE 56–78; RESP 16–18; TEMP 36.1–37.1; O2SAT 88–98; BMI 26.2
[2023-01-12] MEDS: Lactated Ringers 1,000 ML 15 ML IV ×2 (12:00→15:08)
--- NOTE | 2023-01-12 12:24 | HP.PCM_ITS ---
History and Physical Date of Admission: 01/12/23 82 year old male with a complex medical history including BPH presents for pre op appointment He is scheduled for a TURP on 01/12/23 Taking Flomax and Proscar, he has been tolerating the medications but has not had any improvement in symptoms Wakes once per night to urinate No difficulty starting urine stream, steady stream Having leakage of urine with urge, wears depends and they require changing once or twice per day Denies hematuria, fever, dysuria ALLERGIES: Meloxicam Mobic Statins MEDICATIONS: Flomax 0.4 mg capsule 1 capsule PO Q HS Proscar 5 mg tablet 1 tablet PO Daily Amlodipine Besylate 10 mg tablet Aspirin 81 mg tablet,chewable Basaglar Kwikpen U-100 Carvedilol 6.25 mg tablet Clonidine Hcl 0.1 mg tablet Doxazosin Mesylate 8 mg tablet Gabapentin 300 mg capsule Gabapentin 100 mg capsule Humalog Kwikpen U-100 Hydralazine Hcl 25 mg tablet Lasix 40 mg tablet Latanoprost 0.005 % drops Losartan Potassium 25 mg tablet Multivitamin Myrbetriq 50 mg tablet, extended release 24 hr 1 tablet PO Daily Plavix 75 mg tablet Pramipexole Dihydrochloride 0.125 mg tablet Sertraline Hcl 50 mg tablet Zetia 10 mg tablet PAST SURGICAL HISTORY: Cataract Surgery Cystoscopy - 10/19/2022 Hernia Repair Lumbar Laminectomy Patient documented to have received pneumococcal vaccination Repair Hydrocele - [facility] Notes: No colonoscopy PAST MEDICAL HISTORY: Benign prostatic hyperplasia without lower urinary tract symptoms - 10/19/2022, - 2019 Feeling of incomplete bladder emptying - 10/19/2022 Urge incontinence (Stable) - 10/19/2022, - 09/28/2022 Nocturia Personal history of urinary calculi Type 2 diabetes mellitus without complications Immunizations: None FAMILY HISTORY: Cancer - Runs in Family Heart Disease - Father Hypertension - Mother SOCIAL HISTORY: Marital Status: Preferred Language: Greenlandic; Ethnicity: Not Or ; Race: White Current Smoking Status: Patient has never smoked. Tobacco Use Assessment Completed: Used Tobacco in last 30 days? Smoking cessation counseling was provided. Does not use smokeless tobacco. Does drink. Does not use drugs. Drinks 2 caffeinated drinks per day. Has not had a blood transfusion. REVIEW OF SYSTEMS: Constitutional: Patient denies fever, chills, weight loss, and weight gain. Genitourinary: Patient reports frequent urination, get up at night to void, and urinary incontinence. Patient denies urinary retention, painful urination, blood in the urine, frequent uti's, history of stones, difficulty starting stream, weak stream/scanty, and bedwetting. VITAL SIGNS: 01/06/2023 03:11 PM Weight 185 lb / 83.91 kg Height 73 in / 185.42 cm BP 130/70 mmHg BMI 24.4 kg/m? - BMI Counseling was provided. PHYSICAL EXAM: Constitutional: Well-nourished. No physical deformities. Normally developed. Good grooming. Neck: Neck symmetrical, not swollen. Normal tracheal position. Respiratory: No labored breathing, no use of accessory muscles. Cardiovascular: Normal temperature, normal extremity pulses, no swelling, no varicosities. Lymphatic: No enlargement of neck, axillae, groin. Skin: No paleness, no jaundice, no cyanosis. No lesion, no ulcer, no rash. Neurologic / Psychiatric: Oriented to time, oriented to place, oriented to person. No depression, no anxiety, no agitation. Gastrointestinal: No mass, no tenderness, no rigidity, non obese abdomen. Eyes: Normal conjunctivae. Normal eyelids. Ears, Nose, Mouth, and Throat: Left ear no scars, no lesions, no masses. Right ear no scars, no lesions, no masses. Nose no scars, no lesions, no masses. Normal hearing. Normal lips. Musculoskeletal: Normal gait and station of head and neck. Complexity of Data: Source Of History: Patient Records Review: Previous Patient Records X-Ray Review: Renal Ultrasound: Reviewed Films. Reviewed Report. Discussed With Patient. Bladder Ultrasound: Reviewed Films. Reviewed Report. Discussed With Patient. PROCEDURES: None ASSESSMENT: ICD-10 Details 1 Benign prostatic hyperplasia without lower urinary tract symptoms - N40.0 Acute, Systemic Symptoms 2 Urge incontinence - N39.41 Acute, Systemic Symptoms 3 Feeling of incomplete bladder emptying - R39.14 Acute, Systemic Symptoms PLAN: Document Letter(s): Created for Patient: Clinical Summary Notes: Reviewed ultrasound images with patient in office today. Continue taking Flomax and Proscar at this time. He has already stopped his blood thinners in preparation for surgery. Scheduled 01/12/23 for TURP - we discussed the procedure with him in detail, all risks vs benefits explained. All of his questions were answered today.
--- NOTE | 2023-01-12 12:26 | DCINST_ITS ---
Discharge Instructions Diet Discharge Diet: No restrictions Activity Discharge Activity: Return to Normal Activity and May Not Drive (while taking narcotic pain medications.) Dressing / Incision Call your doctor if you observe: Fever of 101 or Higher Follow Up Care Please Follow Up With: Grey Gonsalez MD When: Call [phone] for an appointment Test Results: Test results from this visit will be discussed in further detail at your follow- up appointment, if applicable. Discharge Plan Admission Primary Reason for Your Visit: turp Attending Provider: Grey Gonsalez Primary Care Provider: Jennifer Watt Consulting Providers: Ke Connelly Discharge Orders/Prescriptions Prescriptions: New ciprofloxacin HCl [Cipro] 500 mg tablet 500 mg PO BID Qty: 14 0RF Continued multivitamin,hp-ruii-zduvoqme tablet tablet 1 tab PO QDAY finasteride 5 mg tablet 5 mg PO DAILY tamsulosin 0.4 mg capsule 0.4 mg PO QHS latanoprost 0.005 % drops 1 drp EACH EYE HS sertraline 50 mg tablet 50 mg PO QHS ezetimibe [Zetia] 10 mg tablet 10 mg PO QHS Rx Instructions: take at bedtime losartan 25 mg tablet 25 mg PO DAILY insulin glargine [Basaglar KwikPen U-100 Insulin] 100 unit/mL (3 mL) insulin pen 24 unit subcut DAILY (DME) Handicap Placard See Rx Instructions .Route .MEDSUPPLY Qty: 1 0RF Rx Instructions: Length of time: 5 years gabapentin 100 mg capsule 100 mg PO BID Qty: 180 3RF gabapentin 300 mg capsule 300 mg PO 2100 Qty: 90 3RF (DME) pen needle, diabetic [BD Sanaz 2nd Gen Pen Needle] 32 gauge x 5/32 needle See Rx Instructions .ROUTE .MEDSUPPLY Qty: 50 2RF Rx Instructions: use once daily to adminster insulin as directed. clonidine HCl 0.1 mg tablet 0.1 mg PO BID Qty: 60 11RF amlodipine 10 mg tablet 10 mg PO DAILY Qty: 90 3RF (DME) oxygen See Rx Instructions .Route .MEDSUPPLY Qty: 1 0RF Rx Instructions: DC ALL OXYGEN ORDERS doxazosin 8 mg tablet 8 mg PO QHS Qty: 90 3RF hydralazine 25 mg tablet 75 mg PO TID Qty: 270 3RF furosemide [Lasix] 40 mg tablet 40 mg PO DAILY Qty: 90 3RF Venofer 200 mg iron/10 mL solution 300 mg .ROUTE .COMPLEX Qty: 15 2RF Rx Instructions: 300 mg IV every 2 weeks for 3 doses carvedilol 6.25 mg tablet 6.25 mg PO BID Qty: 60 11RF Rx Instructions: must administer with a meal/food pramipexole 0.125 mg tablet 0.125 mg PO QHS Qty: 90 3RF insulin lispro [Humalog KwikPen Insulin] 100 unit/mL insulin pen 1 unit subcut TIDAC PRN (Reason: SLIDING SCALE) Qty: 15 3RF Held aspirin 81 mg tablet,chewable 81 mg PO BREAKFAST Hold Instructions: Resume on 01/26/23. clopidogrel [Plavix] 75 mg tablet 75 mg PO DAILY Qty: 90 3RF Hold Instructions: Resume on 01/26/23. Referrals / Follow Up: Grey Gonsalez MD [Med Staff - Active Staff] - Jennifer Watt MD [Primary Care Provider] - Disposition Disposition (needs filled in before D/C Order can be placed): Home, Self Care
[2023-01-12] MEDS: Cefazolin 2 GM in 0.9% Normal Saline (100mL Bag) 100 ML IV (12:53)
[2023-01-12 13:03] LABS: Bedside Glucose 131 mg/dL (74-106)
--- NOTE | 2023-01-12 13:36 | OP.PCM_ITS ---
Report of Operation Date of Procedure: 01/12/23 Pre-Operative Diagnosis: BPH with obstruction Post-Operative Diagnosis: Same Surgery/Procedure Performed:: Transurethral section of prostate Description of Surgical Findings:: Patient was taken back to the operating room at the smooth induction of anesthesia he was placed in dorsolithotomy position. The penis testicles were prepped and draped in usual sterile fashion went into the bladder with a 24 [place] noncontinuous flow Olympus bipolar resectoscope we used a medium size loop identified the verumontanum identified the sphincter the verumontanum was marked in front of it circumferentially to manuel the area of resection I started at the 12 o'clock position and resected the 12:00 back to the sphincter and then worked my way to the 3 o'clock position and then went 9 o'clock position and then resected the rest of the prostate inferiorly to this one-sided nice open channel resect the prostate wide open bladder neck was wide open the channel from the verumontanum to the prostate wide open did a flow test had a nice wide open flow we then Ellik out all the chips out of the bladder obtain hemostasis with pinpoint electrocautery and a 24 [place] catheter was put into the bladder with continuous irrigation anesthetic is currently being reversed he is can be taken to the PACU and kept overnight for observation Surgeon: Grey Gonsalez Type of Anesthesia: General Drains: [address] to Estimated Blood Loss (mL): 10 Admit VTE Documentation VTE Present on Admission: No VTE Mechan Device Prophylaxis: SCD's VTE Pharm Prophylaxis ordered?: No
--- NOTE | 2023-01-12 13:55 | PROS_PTH ---
PATIENT: SHAISTA CLOUD LOC: [facility] U#:[id number] AGE/SX: 82/M ROOM: ME321 RE01/12/[address]: Dr. Grey Gonsalez MD : [id number] BED: 1 DIS: 01/13/2023 SPEC #: [id number] RECD: 01/12/23 14:02 STATUS: AMINTA ALVAREZ #: [id number] JAMES: 01/12/23 13:[address]: Grey Gonsalez DEPT: SURGICAL PATHOLOGY RECD BY: Cyndee Melchor ENTERED: 01/13/23 09:10 SP TYPE: TURP OTHR DR: MD Dr. Jennifer Fischer MD Tissues: Prostate, NOS Procedures: Surgery Specimen Level IV HEADER OPERATION: Transurethral resection of prostate with Olympus PRE-OP DIAGNOSIS: BPH TISSUE SUBMITTED: Prostate tissue MICROSCOPIC DIAGNOSIS Prostate, transurethral resection: Benign nodular hyperplasia, glandular and stromal types. Chronic inflammation. AM:bogdan 01/14/2023 MICROSCOPIC DESCRIPTION Slides are reviewed. GROSS DESCRIPTION Received is one container labeled with the patient's name and designated prostate tissue. The specimen consists of multiple irregular fragments of pink-du, rubbery, soft tissue that in aggregate weigh 3 gm and measure in aggregate 4.5 x 4.0 x 0.2 cm. The entire specimen is submitted in four cassettes. / AM:bogdan 01/13/2023 TC:3 CPT: 01743
[2023-01-12 14:15] LABS: Bedside Glucose 120 mg/dL (74-106)
[2023-01-12] MEDS: 0.9% Normal Saline (1000mL) 1,000 ML 125 ML IV (18:05)
[2023-01-12] MEDS: Ezetimibe 10 MG Tablet PO (21:40)
[2023-01-12] MEDS: Pramipexole Di-HCl 0.125 MG Tablet PO (21:40)
[2023-01-12] MEDS: cloNIDine HCl 0.1 MG Tablet PO (21:40)
[2023-01-12] MEDS: Carvedilol 6.25 MG Tablet PO (21:41)
[2023-01-12] MEDS: Gabapentin 300 MG Capsule PO (21:41)
[2023-01-12] MEDS: Tamsulosin HCl 0.4 MG Capsule PO (21:41)
[2023-01-12] MEDS: Doxazosin 4 MG Tablet 8 MG PO (21:41)
[2023-01-12] MEDS: Sertraline 50 MG Tablet PO (21:41)
[2023-01-12] MEDS: Docusate Sodium 100 MG Capsule 200 MG PO (21:42)
[2023-01-12] MEDS: hydrALAZINE 25 MG Tablet 75 MG PO (21:42)
[2023-01-12] MEDS: Ciprofloxacin 400 MG/200 ML BAG 200 MG IV (21:44)
[2023-01-12] MEDS: Latanoprost 0.005% 1 Bottle 1 DRP EACH EYE (22:13)
[2023-01-12 23:14] LABS: Bedside Glucose 225 mg/dL (74-106)
[2023-01-13] VITALS (7 sets, daily range): BP systolic 125–150; BP diastolic 36–60; PULSE 53–61; RESP 18–20; TEMP 36.3–37.2; O2SAT 88–96
[2023-01-13] MEDS: 0.9% Normal Saline (1000mL) 1,000 ML 125 ML IV ×2 (02:11→08:29)
[2023-01-13] MEDS: hydrALAZINE 25 MG Tablet 75 MG PO (07:03)
[2023-01-13] MEDS: Gabapentin 100 MG Capsule PO ×2 (07:03→13:43)
--- NOTE | 2023-01-13 07:17 | PCM.PN.GU ---
Subjective Subjective Status post TURP urine is fairly clear today, remove the Bo catheter for voiding trial and he can go home after he voids follow-up with me in the office in 2 weeks for checkup Objective Data Objective Data Vital Signs: Vital Signs Temp Pulse Resp BP Pulse Ox O2 Del Method O2 Flow Rate 97.3 F L 58 L 20 H 132/46 H 96 Room Air 2 01/13/23 06:56 01/13/23 07:03 01/13/23 06:56 01/13/23 07:03 01/13/23 06:56 01/13/23 06:56 01/12/23 17:37 Oxygen Flow Rate (L/min) 2 Oxygen Delivery Method Room Air Weight: 87.543 kg Body Mass Index (BMI) 26.2 Intake & Output: Intake and Output for Last 24 Hours 01/11/23 01/12/23 01/13/23 23:59 23:59 23:59 Intake Total 1157.25 / 1357.25 1600 / 1600 Output Total 0 / 0 Balance 1157.25 / 1357.25 1600 / 1600 Lab / Micro Data 01/06/23 13:05 01/06/23 13:05 Labs: Laboratory Results - last 24 hr 01/12/23 12:10: POC Glucose 131 H 01/12/23 13:57: POC Glucose 120 H 01/12/23 22:11: POC Glucose 225 H
[2023-01-13 07:18] LABS: Bedside Glucose 116 mg/dL (74-106)
[2023-01-13] MEDS: Ciprofloxacin 400 MG/200 ML BAG 200 MG IV (08:31)
[2023-01-13] MEDS: Furosemide 40 MG Tablet PO (10:07)
[2023-01-13] MEDS: Losartan Potassium 25 MG Tablet PO (10:07)
[2023-01-13] MEDS: Docusate Sodium 100 MG Capsule 200 MG PO (10:07)
[2023-01-13] MEDS: amLODIPine 10 MG Tablet PO (10:07)
[2023-01-13] MEDS: Finasteride 5 MG Tablet PO (10:07)
[2023-01-13] MEDS: Carvedilol 6.25 MG Tablet PO (10:07)
[2023-01-13] MEDS: Multivitamins,Ther W-Minerals Tablet 1 TABLET PO (10:08)
[2023-01-13] MEDS: cloNIDine HCl 0.1 MG Tablet PO (10:08)
[2023-01-13 11:20] LABS: Bedside Glucose 271 mg/dL (74-106)
[2023-01-13] MEDS: Insulin Glargine-YFGN 100 UNIT/ML Pen 24 UNIT SC (11:28)
--- NOTE | 2023-01-13 15:30 | NURSING ---
This RN bladder scanned pt for 397ml after pt was unable to void. Pt and requested that pt be given more time to try to void before calling physician. Will continue to monitor
== END 2023-01-13 19:40 | disposition home or self-care (01) ==
LOC: SDC 17:08 → MS3 17:08
PROVIDERS: Anesthesiology; Admitting Provider Urology; PCP Internal Medicine; Referring Provider Urology; Visit Provider Urology
PROC: (CPT 52601; principal; 2023-01-12 13:45)
DX: N40.1 Benign prostatic hyperplasia with lower urinary tract symptoms (principal); E11.22 Type 2 diabetes mellitus with diabetic chronic kidney disease; E11.42 Type 2 diabetes mellitus with diabetic polyneuropathy; Z79.4 Long term (current) use of insulin; N18.32 Chronic kidney disease, stage 3b; N39.41 Urge incontinence; R39.14 Feeling of incomplete bladder emptying; N13.8 Other obstructive and reflux uropathy; Z79.899 Other long term (current) drug therapy; Z79.82 Long term (current) use of aspirin; Z79.02 Long term (current) use of antithrombotics/antiplatelets; I12.9 Hypertensive chronic kidney disease with stage 1 through stage 4 chronic kidney disease, or unspecified chronic kidney disease; E78.5 Hyperlipidemia, unspecified; G47.33 Obstructive sleep apnea (adult) (pediatric); R06.02 Shortness of breath
CPT/HCPCS: 52601; 00914; 36415; 51702; 80053; 80061; 82306; 82962; 83036; 84443; 85025; 85610; 85730; 88305; 96361; 96365; 96366; 99221; J7030; J7120; G0378; J0744; J2405

== ENCOUNTER 2023-01-18 12:47 | Outpatient (CLI) | payer MEDICARE, SELFPAY ==
[2023-01-18 12:56] VITALS: BP 128/9; PULSE 59; RESP 16; TEMP 36.6; O2SAT 94; BMI 25.7
[2023-01-18] MEDS: Iron Sucrose Complex 300 MG in 0.9% Normal Saline (250mL Bag) 250 ML 177 MG IV (13:40)
[2023-01-18 15:39] VITALS: BP 127/52; PULSE 64; RESP 16; TEMP 36.4; O2SAT 92
== END 2023-01-18 12:48 | disposition home or self-care (01) ==
LOC: MEDOUTP 12:47
PROVIDERS: PCP Internal Medicine; Referring Provider Psychiatry & Neurology Neurology; Visit Provider Psychiatry & Neurology Neurology
DX: D50.9 Iron deficiency anemia, unspecified (principal)
CPT/HCPCS: 96365; 96366; J1756; J7050; A4216

== ENCOUNTER → 2023-02-10 | Outpatient (CLI) | payer MEDICARE, SELFPAY ==
[2023-02-10 15:25] LABS: Absolute Lymphocyte Count 1.32 X10^3/uL (0.83-4.51); Absolute Neutrophil Count 4.8 X10^3/uL (2.0-7.7); Basophil# 0.05 X10^3/uL; Basophil% 0.7 % (0-1); Eosinophil# 0.49 X10^3/uL; Eosinophils% 6.5 % (0-5); Hematocrit 36.7 % (40-54); Hemoglobin 11.6 g/dL (13.0-16.5); Lymphocyte # 1.32 X10^3/ul (0.83-4.51); Lymphocyte % 17.6 % (19-41); Mean Corp Hgb Conc 31.6 g/dL (32-36); Mean Corpuscular Hgb 29.3 pg (27.0-32.0); Mean Corpuscular Volume 92.7 fL (80-94); Mean Platelet Vol. 11.3 fl (6.2-12.0); Monocyte# 0.82 X10^3/uL; Monocyte% 10.9 % (0-10); NRBC Flagged by Analyzer 0 % (0-5); Neutrophil # 4.82 X10^3/uL (2.7-7.7); Neutrophil % 64.2 % (47-70); Platelet Count 216 K/mm3 (150-450); RBC Distribution Width CV 15.8 % (11.6-14.6); RBC Distribution Width SD 53.6 fl (35.1-43.9); Red Blood Count 3.96 M/mm3 (4.6-6.2); White Blood Count 7.5 K/mm3 (4.4-11.0)
[2023-02-10 15:41] LABS: Hemoglobin A1c 6.3 % (3.8-5.6)
[2023-02-10 16:14] LABS: ALB/GLOB Ratio 0.9 RATIO (0.9-2.4); AST(SGOT) 15 U/L (15-37); Alanine Aminotransfer ALT/SGPT 17 U/L (16-61); Albumin, Serum 3.7 g/dL (3.2-5.0); Alkaline Phosphatase 58 U/L (45-117); Anion Gap 8 (5-15); BUN 45 mg/dL (7-18); BUN/Creat Ratio 23.4 RATIO (10-20); Calcium,Total 8.9 mg/dL (8.5-10.1); Chloride 99 mmol/L (98-107); Creatinine, Serum 1.92 mg/dL (0.70-1.30); EST Glomerular Filtration Rate 36 mL/min (>60); Est Glom Filt Rate - Afr Amer 43 mL/min (>60); Globulin 3.9 g/dL (2.2-4.2); Glucose 136 mg/dL (74-106); PSA,Total - Annual Screen 0.51 ng/mL (0.00-4.00); Potassium 3.5 mmol/L (3.5-5.1); Protein, Total 7.6 g/dL (6.4-8.2); Sodium Level 138 mmol/L (136-145)
== END | disposition home or self-care (01) ==
LOC: MTLAB 13:45
PROVIDERS: PCP Internal Medicine; Referring Provider Internal Medicine; Visit Provider Internal Medicine
DX: I10 Essential (primary) hypertension (principal); E11.9 Type 2 diabetes mellitus without complications; E78.5 Hyperlipidemia, unspecified; R33.9 Retention of urine, unspecified; N13.9 Obstructive and reflux uropathy, unspecified; R42 Dizziness and giddiness; Z86.73 Personal history of transient ischemic attack (TIA), and cerebral infarction without residual deficits; Z12.5 Encounter for screening for malignant neoplasm of prostate
CPT/HCPCS: 36415; 80053; 83036; 84153; 85025; G0103

== ENCOUNTER → 2023-03-29 | Outpatient (CLI) | payer MEDICARE, SELFPAY ==
--- OUTSIDE RECORDS SUMMARY | 2023-03-29 17:08 | XMS RPT_ITS | CCD ---
Author Name Unknown Address [address] [place] [address] Organization [facility] Results Test Name Value Interpretation Reference Range Facil ity Progress note 12-24-2020 Note Date & Type Note Facility 12-24-2020 Note HNO ID: [id number] Author: Bárbara Johnson RPh Service: ? Author Type: Pharmacist Type: Progress Notes Filed: 01/01/2021 4:10 PM Note Text: Primary Care Pharmacy Visit REASON FOR CONSULT: DM?and BP GOALS: A1c CONSULTING PROVIDER:??Evangelista Banegas Date of Consult:?01/30/19 Francisco Cloud is a 80 year old male presenting for follow up visit in person. Patient consents to pharmacy collaborative practice agreement. . Last seen by PCP, Dr. Evangelista Banegas MD on 06/24/20. At last PCP appt, pt had self-stopped Victoza and increased Lantus dose, his BP was elevated and he was encouraged to complete labs.?At??PharmD visit on?08/27,?BP was elevated so losartan was switched to valsartan.?At PharmD visit on?09/18,?patient noted his BP seemed better since switching to valsartan.?He admitted to not doing great about limiting [...] has been higher since switching from HCTZ to chlorthalidone. Has complete ~2 weeks worth of Cholrthalidone, has about ~2 weeks supply remaining. Has [...] PP Before Lunch 2 hr PP Before Dinner 2 hr PP Bedtime [...] Patient denies CP, SOB, JOHNSON, blurred vision, dizziness or lightheadedness ? Patient denies nausea, vomiting, diarrhea, abdominal pain ? Patient denies symptoms of hypoglycemia (sweating, anxiety, palpitations, hunger, and tremor) ? Patient denies symptoms of hyperglycemia (polyuria, polydipsia, polyphagia) ? Patient denies potential medication adverse effects DIET/EXERCISE/SOCIAL Hx: ? On most days has about 2 cups of caffeine per day MEDICATIONS: ? Pill bottles are not present. Adherence: denies missed doses Pharmacy:?[facility] mail order? Rx coverage:?Medicare Affordability:?insulin and Victoza costly Diabetes supplies:?[employer] Organization System:?none ACTIVE PROBLEM LIST Chronic Pain of Right Knee Mixed Hyperlipidemia Essential Hypertension Uncontrolled Type 2 Diabetes Mellitus With Microalbuminuria, With Long-Term Current Use of Insulin (Hcc) Chronic Bilateral Low Back Pain With Right-Sided Sciatica Recurrent Inguinal Hernia Dm (Diabetes Mellitus), Type 2, Uncontrolled, With Renal Complications (Hcc) PAST MEDICAL HISTORY Diagnosis Date - Hypercholesterolemia - Hypertension - Type II or unspecified type diabetes mellitus without mention of complication, not stated as uncontrolled ALLERGIES Allergen Reactions - Cholestyramine Other: See Comments caused low blood sugar - Mobic [Meloxicam] Swelling, Itching - Pravachol [Pravasta* Intolerance Myalgias. Current Outpatient Medications Medication Sig - chlorthalidone (HYGROTON) 25 mg tablet Take 1 tablet by mouth once daily. - insulin glargine (BASAGLAR KWIKPEN U-100 INSULIN) 100 unit/mL (3 mL) Inject 28 [...] to check blood pressure daily. - Insulin Drew, Disposable, (BD ULTRA-FINE SHEBA PEN NEEDLE) 32 gauge x Use to inject insulin and Victoza, 2 injections per day. - potassium chloride ER (KLOR-CON M20) 20 [...] daily at bedtime. (more content not included)... [facility] Progress note 11-27-2020 Note Date & Type Note Facility 11-27-2020 Note HNO ID: [id number] Author: Mariama Chang [facility] Service: ? Author Type: Pharmacist Type: Progress Notes Filed: 11/27/2020 3:15 PM Note Text: Patient consents to pharmacy collaborative practice agreement. REASON FOR CONSULT: DM?and BP GOALS: A1c CONSULTING PROVIDER:?Dr.?Jeffery Banegas Date of Consult:?01/30/19 Francisco Cloud is a 80 year old male presenting for follow up visit in person. Patient consents to pharmacy collaborative practice agreement. . Patient was last seen by PCP, Dr. Evangelista Banegas MD on 06/24/20. Patient is presenting today for f/up pharmacotherapy management appointment for diabetes and HTN. At last PCP appt, pt had self-stopped Victoza and increased Lantus dose, his BP was elevated and he was encouraged to complete labs.?At??PharmD visit on?08/27,?BP was elevated so losartan was switched to valsartan. At PharmD visit [...] PharmD visit on 10/23, amlodipine was increased. Subjective: HPI: Reports having low BGs in the afternoons before dinner and I have no idea why. This has happened 3 times in the past couple weeks. One time did have a low BG in the morning after giving insulin. Took 1 glucose tab each time. Not sure if he had breakfast the morning he had a low BG. Not sure if had been more physically active. Still having some lower leg cramps in the calf and occasional ankle. Started taking zinc and magnesium, hasn't had any cramps in the past 3-4 [...] had feelings of lows 3x in the past 2 weeks but [...] Patient denies CP, SOB, JOHNSON, blurred vision, dizziness or lightheadedness ? Patient denies symptoms of hypoglycemia (sweating, anxiety, palpitations, hunger, and tremor) ? Patient denies symptoms of hyperglycemia (polyuria, polydipsia, polyphagia) ? Patient denies potential medication adverse effects MEDICATIONS: Pill bottles are not present Adherence: denies missed doses Pharmacy:?[facility] mail order? Rx coverage:?Medicare Affordability:?insulin and Victoza costly Diabetes supplies:?[employer] System:?none Past medical, family and social history reviewed and updated. ACTIVE PROBLEM LIST Chronic Pain of Right Knee Mixed Hyperlipidemia Essential Hypertension Uncontrolled Type 2 Diabetes Mellitus With Microalbuminuria, With Long-Term Current Use of Insulin (Hcc) Chronic Bilateral Low Back Pain With Right-Sided Sciatica Recurrent Inguinal Hernia Dm (Diabetes Mellitus), Type 2, Uncontrolled, With Renal Complications (Hcc) PAST MEDICAL HISTORY Diagnosis Date - Hypercholesterolemia - Hypertension - Type II or unspecified type diabetes mellitus without mention of complication, not stated as uncontrolled ALLERGIES Allergen Reactions - Cholestyramine Other: See Comments caused low blood sugar - Mobic [Meloxicam] Swelling, Itching - Pravachol [Pravasta* Intolerance Myalgias. Medication List Medication Directions Comments Action/Plan amLODIPine (NORVASC) 10 mg tablet Take 1 tablet by mouth once daily. Blood Pressure Monitor Use to check blood pressure daily. blood sugar diagnostic (ONETOUCH ULTRA TEST) test strip Use to check blood sugar three times daily. hydroCHLOROthiazide (HYDRODIURIL, ESIDRIX) 25 mg tablet Take 1 tablet by mouth once daily. insulin glargine (BASAGLAR KWIKPEN U-100 INSULIN) 100 unit/mL (3 mL) Inject 30 Units subcutaneously every morning. Insulin Drew, Disposable, (BD ULTRA-FINE SHEBA PEN NEEDLE) 32 gauge x 5/32 Use to inject insulin and Victoza, 2 injections per day. Lancets (TTA Marine[employer]OUCH ULTRASOFT LANCETS) lancets Test blood sugar four times daily. Uncontrolled diabetes type 2 on insulin latanoprost (XALATAN) 0.005 % ophthalmic solution Use 1 Drop in both eyes daily at bedtime. metFORM (more content not included)... [facility] Progress note 10-23-2020 Note Date & Type Note Facility 10-23-2020 Note HNO ID: [id number] Author: Mariama Chang [facility]: ? Author Type: Pharmacist Type: Progress Notes Filed: 10/23/2020 4:17 PM Note Text: Patient consents to pharmacy collaborative practice agreement. REASON FOR CONSULT: DM?and BP GOALS: A1c CONSULTING PROVIDER:??Evangelista Banegas Date of Consult:?01/30/19 ? Francisco Cloud is a 80 year old male was last seen by PCP, Dr. Evangelista Banegas MD on?06/24/2020. ? Patient is presenting today for f/up pharmacotherapy management appointment for diabetes. Patient is presenting today for?established?pharmacotherapy management appointment for diabetes and HTN. At last PCP appt, pt had self-stopped Victoza and increased Lantus dose, his BP was elevated and he was encouraged to complete labs.?Pt has followed with pharmacy in the past and here to re-establish care for DM and BP management. At PharmD visit on 08/27, BP was elevated so losartan was switched to valsartan. At last PharmD visit on 09/18, patient noted his BP seemed better since switching to valsartan. He admitted to not doing great about limiting sodium/caffeine and sometimes misses amlodipine. No med changes made but patient encouraged to work on lifestyle modifications. Subjective: Patient overall reports feeling well. Is frustrated with technology issues with online newspaper. Patient admits that he is eating more ice cream in the summer. Admits BGs tend to go up in the summer. Will usually have 1/2-1 scoops at night 2-3x/week. Patient has moved amlodipine to [facility] and is not missing any doses. Has not noticed feeling any different. Not noticing any dizziness or light-headedness. Not having any swelling of ankle or feet. He is happy with current BP control. Patient actively trying to cut back on adding salt [...] ? SMBG?s: Date Fasting AM 10/23 125 8/11 143 8/10 111 8/9 125 8/8 107 8/7 130 8/6 131 8/5 137 8/4 142 8/3 132 8/2 123 8/1 113 ? Hypoglycemia: none; lowest BG was 87 mg/dL Preventative Medications: On ALVIN/ARB: Yes On Statin: No - myalgias ROS: ? Patient denies CP, SOB, JOHNSON, blurred vision, dizziness or lightheadedness ? Patient denies symptoms of hypoglycemia (sweating, anxiety, palpitations, hunger, and tremor) ? Patient denies symptoms of hyperglycemia (polyuria, polydipsia, polyphagia) ? Patient denies potential medication adverse effects DIET/EXERCISE/SOCIAL Hx: ? Adding less sodium to food MEDICATIONS: Pill bottles are not present Adherence: denies missed doses Pharmacy: [facility] mail order Rx coverage: Medicare Affordability: insulin and Victoza costly Diabetes supplies: [employer] System: none ACTIVE PROBLEM LIST Chronic Pain of Right Knee Mixed Hyperlipidemia Essential Hypertension Uncontrolled Type 2 Diabetes Mellitus With Microalbuminuria, With Long-Term Current Use of Insulin (Hcc) Chronic Bilateral Low Back Pain With Right-Sided Sciatica Recurrent Inguinal Hernia Dm (Diabetes Mellitus), Type 2, Uncontrolled, With Renal Complications (Hcc) PAST MEDICAL HISTORY Diagnosis Date - Hypercholesterolemia - Hypertension - Type II or unspecified type diabetes mellitus without mention of complication, not stated as uncontrolled ALLERGIES Allergen Reactions - Cholestyramine Other: See Comments caused low blood sugar - Mobic [Meloxicam] Swelling, Itching - Pravachol [Pravasta* Intolerance Myalgias. Medication List Medication Directions Comments Action/Plan amLODIPine (NORVASC) 5 mg tablet Take 1 tablet by mouth once daily. Blood Pressure Monitor Use to check blood pressure daily. blood sugar diagnostic ([employer]CH ULTRA TEST) test strip Use to check blood sugar three times daily. hydroCHLOROthiazide (HYDRODIURIL, ESIDRIX) 25 mg tablet Take 1 tablet by mouth once daily. insulin glargine (BASAGLAR KWIKPEN U-100 INSULIN) 100 unit/mL (3 mL) Inject 30 Units subcutaneously every morning. Insulin Drew, Disposable, (BD ULTRA-FINE SHEBA PEN NEEDLE) 32 gauge x 5/32 Use to inject insulin and Victoza, 2 injections per day. Lancets (ONETOUCH ULTRASOFT LANCETS) lancets Test blood sugar four times daily. Uncontrolled diabetes type 2 on insulin latanoprost (XALATAN) 0.005 % ophthalmic solution Use 1 Drop in both eyes daily at bedtime. metFORMIN ER (GLUCOPHAGE XR) 500 mg 24 hr tablet Take 2 tablets by mouth twice daily before meals. potassium chloride ER (KLOR-CON (more content not included)... [facility] Progress note 09-18-2020 Note Date & Type Note Facility 09-18-2020 Note HNO ID: [id number] Author: Mariama Chang [facility]: ? Author Type: Pharmacist Type: Progress Notes Filed: 09/18/2020 2:38 PM Note Text: Patient consents to pharmacy collaborative practice agreement. REASON FOR CONSULT: DM?and BP GOALS: A1c CONSULTING PROVIDER:??Evangelista Banegas Date of Consult:?01/30/19 ? Francisco Cloud is a 80 year old male was last seen by PCP, Dr. Evangelista Banegas MD on 06/24/2020. Patient is presenting today [...] his BP has improved based on the readings. Doesn't feel any different. Not experiencing any cough. No dizziness, light-headedness. No CP, JOHNSON, SOB, or heart [...] Patient denies CP, SOB, JOHNSON, blurred vision, dizziness or lightheadedness ? Patient denies symptoms of hypoglycemia (sweating, anxiety, palpitations, hunger, and tremor) ? Patient denies symptoms of hyperglycemia (polyuria, polydipsia, polyphagia) ? Patient denies potential medication adverse effects DIET/EXERCISE/SOCIAL Hx: - Lunch: eats lunchmeat sandwich 3 days/week; other days eats peanut butter sandwich MEDICATIONS: Pill bottles are not present Adherence: reports missed doses of lunchtime amlodipine because pills fall out of pocket; doesn't happen often Pharmacy: [facility] mail order Rx coverage: Medicare Affordability: insulin and Victoza costly Diabetes supplies: [employer] System: none ACTIVE PROBLEM LIST Chronic Pain of Right Knee Mixed Hyperlipidemia Essential Hypertension Uncontrolled Type 2 Diabetes Mellitus With Microalbuminuria, With Long-Term Current Use of Insulin (Hcc) Chronic Bilateral Low Back Pain With Right-Sided Sciatica Recurrent Inguinal Hernia Dm (Diabetes Mellitus), Type 2, Uncontrolled, With Renal Complications (Hcc) PAST MEDICAL HISTORY Diagnosis Date - Hypercholesterolemia - Hypertension - Type II or unspecified type diabetes mellitus without mention of complication, not stated as uncontrolled ALLERGIES Allergen Reactions - Cholestyramine Other: See Comments caused low blood sugar - Mobic [Meloxicam] Swelling, Itching - Pravachol [Pravasta* Intolerance Myalgias. Medication List Medication Directions Comments Action/Plan amLODIPine (NORVASC) 5 mg tablet Take 1 tablet by mouth once daily. Blood Pressure Monitor Use to check blood pressure daily. blood sugar diagnostic ([employer] ULTRA TEST) test strip Use to check blood sugar three times daily. hydroCHLOROthiazide (HYDRODIURIL, ESIDRIX) 25 mg tablet Take 1 tablet by mouth once daily. insulin glargine (BASAGLAR KWIKPEN U-100 INSULIN) 100 unit/mL (3 mL) Inject 30 Units subcutaneously every morning. Insulin Drew, Disposable, (BD ULTRA-FINE SHEBA PEN NEEDLE) 32 gauge x 5/32 Use to inject insulin and Victoza, 2 injections per day. Lancets (ONETOUCH ULTRASOFT LANCETS) lancets Test blood [...] multivitamin ORAL Tab Take one(1) tablet daily. traMADol (ULTRAM) 50 mg tablet Take 50-100 mg by mouth every 6 hours as needed. valsartan (DIOVAN) 320 mg tablet Take 1 tablet by mouth once daily. Objective: VITALS: BP 149/68 Pulse 70 Last 3 Encounter BP Readings: Date: BP: 08/27/2020 165/79 08/25/2020 180/74 06/24/2020 149/62 Wt: 79.8 kg (176 lb) BMI: 23.8 (more content not included)... [facility] Progress note 08-27-2020 Note Date & Type Note Facility 08-27-2020 Note HNO ID: [id number] Author: Bárbara Johnson ty Service: ? Author Type: Pharmacist Type: Progress Notes Filed: 09/11/2020 2:04 PM Note Text: Patient consents to pharmacy collaborative practice agreement. REASON FOR CONSULT: DM?and BP GOALS: A1c CONSULTING PROVIDER:??Evangelista Banegas Date of Consult:?01/30/19 Francisco Cloud is a 80 year old male was last seen by PCP, Dr. Evangelista Banegas MD on 06/24/2020. Subjective: Patient is presenting today for established pharmacotherapy management appointment for diabetes. At last PCP appt, pt had self-stopped Victoza and increased Lantus dose, his BP was elevated and he was encouraged to complete labs. Pt has followed with pharmacy in the past and here to re-establish care for DM and BP management. INTERIM HISTORY: Pt states he did not have ADEs to Victoza, self-stopped when he ran out of refill. Has increased insulin to 30 units daily. Recently started monitoring BP at home since last PCP visit since BP was elevated at that visit. SMBG?s: Date Fasting AM 2 hr PP Before Lunch 2 hr PP Before Dinner 2 hr PP Bedtime 08/27 152 /15 101 /14 136 /13 115 /12 126 /11 105 6/10 123 6/9 154 6/8 130 6/7 97 6/6 119 6/5 95 6/4 119 6/3 88 Hypoglycemia: denies ? Home readings: Date BP Pulse 08/23 156/77 129/75 71 72 08/22 166/83 69 / 170/88 168/85 69 69 /8 180/88 168/88 170/86 69 69 69 Current DM Medications: Metformin 500 mg- 2 tablets in the morning and 2 in evening with meals? Insulin glargine?28?units daily in the morning Current HTN Medications: HCTZ 25 mg once daily in the morning Losartan 100 mg once daily?at night Amlodipine 5 mg once daily?at noon Preventative Medications: ? On ALVIN/ARB:?Yes ? On Statin:?No, not indicated due to age ? On ASA:?No ? MEDICATIONS:? Adherence:?denies?missed doses. ? Pharmacy:?[facility] mail order? Rx coverage:?Medicare ? Affordability:?insulin/victoza more costly? ? Diabetes supplies:?[employer]? ? Organization System:?none ACTIVE PROBLEM LIST Chronic Pain of Right Knee Mixed Hyperlipidemia Essential Hypertension Uncontrolled Type 2 Diabetes Mellitus With Microalbuminuria, With Long-Term Current Use of Insulin (Hcc) Chronic Bilateral Low Back Pain With Right-Sided Sciatica Recurrent Inguinal Hernia Dm (Diabetes Mellitus), Type 2, Uncontrolled, With Renal Complications (Hcc) PAST MEDICAL HISTORY Diagnosis Date - Hypercholesterolemia - Hypertension - Type II or unspecified type diabetes mellitus without mention of complication, not stated as uncontrolled ALLERGIES Allergen Reactions - Cholestyramine Other: See Comments caused low blood sugar - Mobic [Meloxicam] Swelling, Itching - Pravachol [Pravasta* Intolerance Myalgias. Current Outpatient Medications Medication Sig - insulin glargine (BASAGLAR KWIKPEN U-100 INSULIN) 100 unit/mL (3 mL) Inject 28 Units subcutaneously every morning. - hydroCHLOROthiazide (HYDRODIURIL, ESIDRIX) 25 mg tablet Take 1 tablet by [...] to check blood pressure daily. - Insulin Drew, Disposable, (BD ULTRA-FINE SHEBA PEN NEEDLE) 32 gauge x 5/32 Use to inject insulin and Victoza, 2 injections per day. - potassium chloride ER (KLOR-CON M20) 20 [...] 4.7 06/24/2020 Chlori (more content not included)... [facility] Progress note 08-25-2020 Note Date & Type Note Facility 08-25-2020 Note HNO ID: [id number] Author: Katy Laboy LPN Service: ? Author Type: ? Type: Progress Notes Filed: 08/25/2020 11:48 AM Note Text: Manual Readin/82 Pulse: 72 Reason for blood pressure check - Last BP elevated Patient is: Taking medication as prescribed Yes, patient takes meds at noon and evening Took medication today No If no, date medication last taken Patient takes meds at noon and evening Experiencing side effects No Recommendations Continue taking medications as prescribed, Follow recommended diet instructions, Continue recommended activity and Avoid excessive salt Follow-up Yes follow up with Bárbara 08/27/2020 Pt has been identified by name and birthdate: Yes Allergies reviewed: Yes Latex allergy: no. Medication - prescribed and OTC reviewed and updated: Yes Do you need any prescription refills prior to your next visit: No Health Maintenance: Reviewed and up to date Patient brought his own BP monitor today off by 10mmg, pulse was same [facility] Progress note 06-24-2020 Note Date & Type Note Facility 06-24-2020 Note HNO ID: [id number] Author: Evangelista aBnegas Service: ? Author Type: Physician Type: Progress Notes Filed: 07/01/2020 11:02 AM Note Text: CHIEF COMPLAINT Patient presents with: Follow Up: diabetes HISTORY OF PRESENT ILLNESS Francisco Cloud is a 79 year old male who presents here today for management of multiple medical issues. I last saw this patient on 01/30/2019. Diabetes Patient has improve diet patterns Stopped taking VICTOZA for one month Increased his insulin glargine from 25 to 28 units Still taking and tolerating metformin ER Denies experiencing any hypoglycemic episodes HTN BP elevated on arrival today at 149/62, 134/64 on repeat. Taking and tolerating medications as prescribed. No adverse side effects to medication. Base of L Thumb Jammed his thumb No issues with range of movement Counseled on newest information pertaining to COVID-19 vaccinations. Past medical history, appointments, medications, allergies reviewed. REVIEW OF SYSTEMS Pertinent positives/ negatives: General: Feels well, no weight changes, fever, chills. Endo: +DM HEENT: No sinus congestion, earache, sore throat. Cardiac: No chest pain, palpitations Resp: No cough, wheeze, shortness of breath GI: No reflux symptoms, food intolerance, bowel changes. : No urinary frequency, dysuria. MS: No pain or joint complaints. PAST MEDICAL HISTORY PAST MEDICAL HISTORY Diagnosis Date - Hypercholesterolemia - Hypertension - Type II or unspecified type diabetes mellitus without mention of complication, not stated as uncontrolled PHYSICAL EXAMINATION BP 149/62 Pulse 70 Temp 36.8 ?C (98.2 ?F) (Temporal) Ht 182.9 cm (6') Wt 79.8 kg (176 lb) BMI 23.87 kg/m? Repeat BP: 134/64 General: Alert, well developed, well nourished, no distress, pleasant and cooperative. Heart: Regular rate and rhythm. Normal S1 and S2. No murmurs, rubs, or gallops. Lungs: Clear to auscultation bilaterally. No respiratory distress. No wheezes, rales, or rhonchi. 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 RAI: No metFORMIN ER (GLUCOPHAGE XR) 500 mg 24 hr tablet 360 tablet 3 Sig: Take 2 tablets by mouth twice daily before meals. RAI: No RTO: Routine follow up in 6 months. Scribe Attestation: By signing my name below, IGrecia, attest that this documentation has been prepared under the direction and in the presence of Butch Banegas M.D. Electronically Signed: Eleazar Alamo. June 24, 2020 1:05 PM . Provider Attestation: Evangelista Howe MD, personally performed the services described in this documentation. All medical record entries made by the scribe were at my direction and in my presence. I have reviewed the chart and discharge instructions (if applicable) and agree that the record reflects my personal performance and is accurate and complete. Electronically Signed: Evangelista Banegas MD. July 01, 2020 11:02 AM [facility] Progress note 06-08-2020 Note Date & Type Note Facility 06-08-2020 Note HNO ID: [id number] Author: Jackie White Service: ? Author Type: Street Cleaner Type: Progress Notes Filed: 06/08/2020 1:01 PM Note Text: POPULATION HEALTH NAVIGATION OUTREACH Action/I Patient is due for dilated retinal exam. Patient had ALLYSSA with Dr. Santiago in [place] on 02/05/2020. Will have results sent Contact made with patient or family member? YES Pt identified by name and : YES Outreach Outcome/Action Spoke to patient or caregiver: Patient scheduled Reason for Outreach Care Gap or Scheduling/Wellness visits Payer: Payor: [employer] MEDICARE / Plan: [employer] MEDICARE PPO / Product Type: PPO / Care Gap Reviewed:: Diabetic Eye Exam Reminder: Reminder note to check Health Maintenance for items below Health Maintenance items due: BP CONTROLLED (<130/80) Completed DTAP,TDAP,TD(2 - Tdap) due on 07/17/2008 ADVANCE DIRECTIVE DISCUSSION due on 04/29/2011 DIABETIC FOOT EXAM due on 05/04/2019 DEPRESSION SCREENING due on 05/04/2019 ANNUAL PCP TEAM CHRONIC DISEASE VISIT due on 01/31/2020 HBA1C due on 04/19/2020 DILATED RETINAL EXAM due on 04/25/2020 LDL CHOLESTEROL due on 05/04/2020 SERUM CREATININE due on 05/04/2020 Advanced Directives Completed: Have you ever planned for future healthcare decisions with a power of employment attorney, living will, or advance directives? No. Please bring a copy to your next appointment or email to [email or web address] Referrals: N/A Message Sent to Practice: NO Navigation Signature: Jackie White Population Health Navigator June 08, 2020 1:00 PM [facility] Clinical Note 06-08-2020 Note Date & Type Note Facility 06-08-2020 Note Patient Outreach ([facility] CLINE[facility]) FRANCISCO CLOUD ([id number]) 1940 M Date Time Provider Department 06/08/20 JACKIE WHITE During your visit today, we recorded the following information about you: Jackie White Population Health Navigator 06/08/2020 1:01 PM Signed POPULATION HEALTH NAVIGATION OUTREACH Action/FYI Patient is due for dilated retinal exam. Patient had ALLYSSA with Dr. Santiago in [place] on 02/05/2020. Will have results sent Contact made with patient or family member? YES Pt identified by name and : YES Outreach Outcome/Action Spoke to patient or caregiver: Patient scheduled Reason for Outreach Care Gap or Scheduling/Wellness visits Payer: Payor: T MEDICARE / Plan: [employer] MEDICARE PPO / Product Type: PPO / Care Gap Reviewed:: Diabetic Eye Exam Reminder: Reminder note to check Health Maintenance for items below Health Maintenance items due: BP CONTROLLED (<130/80) Completed DTAP,TDAP,TD(2 - Tdap) due on 07/17/2008 ADVANCE DIRECTIVE DISCUSSION due on 04/29/2011 DIABETIC FOOT EXAM due on 05/04/2019 DEPRESSION SCREENING due on 05/04/2019 ANNUAL PCP TEAM CHRONIC DISEASE VISIT due on 01/31/2020 HBA1C due on 04/19/2020 DILATED RETINAL EXAM due on 04/25/2020 LDL CHOLESTEROL due on 05/04/2020 SERUM CREATININE due on 05/04/2020 Advanced Directives Completed: Have you ever planned for future healthcare decisions with a power of employment attorney, living will, or advance directives? No. Please bring a copy to your next appointment or email to [email or web address] Referrals: N/A Message Sent to Practice: NO Navigation Signature: Jackie White Population Health Navigator June 08, 2020 1:00 PM Allergies As of Date: 06/08/2020 Noted Allergy Reaction CHOLESTYRAMINE 03/30/2012 14 - Other: See Comments Comments: caused low blood sugar MOBIC (MELOXICAM) 05/21/2009 7 - Swelling 9 - Itching PRAVACHOL (PRAVASTATIN SODIUM) 12/22/2009 5 - Intolerance Comments: Myalgias. Date Reviewed: 01/30/2019 Reviewed by: Rosy Valverde Ma - Fully Assessed Reason for Visit: Population Health Navigation Outreach [[id number]] Cmt: Deferred Care Prescriptions as of 06/08/2020 Sig: AMLODIPINE 5 MG TABLET Take 1 tablet by mouth once d* LOSARTAN 100 MG TABLET Take 1 tablet by mouth once d* BLOOD PRESSURE MONITOR KIT Use to check blood pressure d* BASAGLAR KWIKPEN U-100 INSULI* Inject 25 Units subcutaneousl* PEN NEEDLE, DIABETIC 32 GAUGE* Use to inject insulin and Alfie* HYDROCHLOROTHIAZIDE 25 MG TAB* Take 1 tablet by mouth once d* POTASSIUM CHLORIDE ER 20 MEQ * Take 1 tablet by mouth twice * LIRAGLUTIDE 0.6 MG/0.1 ML (18* Inject 1.2 mg subcutaneously * TRAMADOL 50 MG TABLET Take 50-100 mg by mouth every* ONETOUCH ULTRA TEST STRIPS Use to check blood sugar thre* METFORMIN ER 500 MG TABLET,EX* Take 2 tablets by mouth twice* LANCETS Test blood sugar four times d* LATANOPROST 0.005 % EYE DROPS Use 1 Drop in both eyes daily* * THERAPEUTIC MULTIVITAMIN TABL* Take one(1) tablet daily. Problem List As Of Date 06/08/2020 Noted Resolved Chronic pain of right knee [M25.561, G89.29] 12/31/2005 MIXED HYPERLIPIDEMIA [E78.2] 12/31/2005 Essential hypertension [I10] 12/31/2005 Uncontrolled type 2 diabetes mellitus with micr*06/10/2009 Chronic bilateral low back pain with right-side*02/01/2012 Recurrent inguinal hernia [K40.91] 06/22/2012 DM (diabetes mellitus), type 2, uncontrolled, w*02/19/2015 Encounter Status:Closed by JOCELYN POPULATION HEALTH NAVIGATORJACKIE on 06/08/20 [facility] Clinical Note 04-15-2020 Note Date & Type Note Facility 04-15-2020 Note Patient Outreach ([place] OCC3) FRANCISCO CLOUD ([id number]) 1940 M Date Time Provider Department 04/15/20 EDILMA MCNEAL During your visit today, we recorded the following information about you: Allergies As of Date: 04/15/2020 Noted Allergy Reaction CHOLESTYRAMINE 03/30/2012 14 - Other: See Comments Comments: caused low blood sugar MOBIC (MELOXICAM) 05/21/2009 7 - Swelling 9 - Itching PRAVACHOL (PRAVASTATIN SODIUM) 12/22/2009 5 - Intolerance Comments: Myalgias. Date Reviewed: 01/30/2019 Reviewed by: Rosy Valverde Ma - Fully Assessed Order(s):SARS-COVID VACCINE 1ST DOSE APPT [[id number]] Order #: [id number] FUTURE Prescriptions as of 04/15/2020 Sig: LOSARTAN 100 MG TABLET Take 1 tablet by mouth once d* BLOOD PRESSURE MONITOR KIT Use to check blood pressure d* BASAGLAR KWIKPEN U-100 INSULI* Inject 25 Units subcutaneousl* PEN NEEDLE, DIABETIC 32 GAUGE* Use to inject insulin and Alfie* AMLODIPINE 5 MG TABLET Take 1 tablet by mouth once d* HYDROCHLOROTHIAZIDE 25 MG TAB* Take 1 tablet by mouth once d* POTASSIUM CHLORIDE ER 20 MEQ * Take 1 tablet by mouth twice * LIRAGLUTIDE 0.6 MG/0.1 ML (18* Inject 1.2 mg subcutaneously * TRAMADOL 50 MG TABLET Take 50-100 mg by mouth every* ONETOUCH ULTRA TEST STRIPS Use to check blood sugar thre* METFORMIN ER 500 MG TABLET,EX* Take 2 tablets by mouth twice* LANCETS Test blood sugar four times d* LATANOPROST 0.005 % EYE DROPS Use 1 Drop in both eyes daily* * THERAPEUTIC MULTIVITAMIN TABL* Take one(1) tablet daily. Problem List As Of Date 04/15/2020 Noted Resolved Chronic pain of right knee [M25.561, G89.29] 12/31/2005 MIXED HYPERLIPIDEMIA [E78.2] 12/31/2005 Essential hypertension [I10] 12/31/2005 Uncontrolled type 2 diabetes mellitus with micr*06/10/2009 Chronic bilateral low back pain with right-side*02/01/2012 Recurrent inguinal hernia [K40.91] 06/22/2012 DM (diabetes mellitus), type 2, uncontrolled, w*02/19/2015 Encounter Status:Closed by KAELA PRODUSER on 04/18/20 [facility] Summary Purpose Family History No Family History Records FoundNo Family History Records Found Advance Directives No Advanced Directives Records FoundNo Advanced Directives Records Found Additional Source Comments (unrecognized sect ion and content) No Status Records FoundNo Status Records Found INFORMATION SOURCE (unrecogn ized section and content) DATE CREATED AUTHOR AUTHOR'S OZZIETISHA KAILYNIKER 04/05/2021 [facility] FOR RECORDS PERTAINING TO PATIENTS WHO ARE OR HAVE BEEN ENROLLED IN A CHEMICAL DEPENDENCY/SUBSTANCEABUSE PROGRAM, SOME INFORMATION MAY BE OMITTED. This clinical summary was aggregated from multiple sources. Caution should be exercised in using it in the provision of clinical care. This summary normalizes information from multiple sources, and as a consequence, information in this document may materially change the coding, format and clinical context of patient data. In addition, data may be omitted in some cases. CLINICAL DECISIONS SHOULD BE BASED ON THE PRIMARY CLINICAL RECORDS. [employer] provides no warranty or guarantee of the accuracy or completeness of information in this document.
[2023-03-29 17:28] LABS: Hematocrit 37.5 % (40-54); Hemoglobin 12.1 g/dL (13.0-16.5); Mean Corp Hgb Conc 32.3 g/dL (32-36); Mean Corpuscular Hgb 29.5 pg (27.0-32.0); Mean Corpuscular Volume 91.5 fL (80-94); Platelet Count 234 K/mm3 (150-450); RBC Distribution Width CV 15.4 % (11.6-14.6); RBC Distribution Width SD 51.3 fl (35.1-43.9); White Blood Count 7.4 K/mm3 (4.4-11.0)
[2023-03-29 17:48] LABS: Ferritin 184 ng/mL (26-388); Iron 56 ug/dL (65-175)
== END | disposition home or self-care (01) ==
LOC: MTLAB 15:20
PROVIDERS: PCP Internal Medicine; Referring Provider Psychiatry & Neurology Neurology; Visit Provider Psychiatry & Neurology Neurology
DX: D50.9 Iron deficiency anemia, unspecified (principal)
CPT/HCPCS: 36415; 82728; 83540; 85027

== ENCOUNTER 2023-05-19 12:52 | Outpatient (CLI) | payer MEDICARE, SELFPAY ==
[2023-05-19 13:21] VITALS: BP 158/74; PULSE 58; RESP 16; TEMP 35.8; O2SAT 96
[2023-05-19] MEDS: 0.9% NaCl Peripheral Flush Adult/Peds IV (13:24)
[2023-05-19] MEDS: 0.9% NaCl IVPB Med Flush (250 mL) 15 ML IV (13:24)
[2023-05-19] MEDS: Iron Sucrose Complex 300 MG in 0.9% Normal Saline (250mL Bag) 250 ML 177 MG IV (13:37)
--- OUTSIDE RECORDS SUMMARY | 2023-05-19 14:32 | XMS RPT_ITS | CCD ---
Author Name Unknown Address [address] [place] [address] Organization [facility] Results Test Name Value Interpretation Reference Range Facil ity Progress note 12-24-2020 Note Date & Type Note Facility 12-24-2020 Note HNO ID: [id number] Author: Bárbara Johnson RPh Service: ? Author [...] are not present. Adherence: denies missed doses Pharmacy:?[facility]? Rx coverage:?Medicare Affordability:?insulin and Victoza costly Diabetes supplies:?[employer] Organization System:?none ACTIVE PROBLEM LIST Chronic Pain [...] to check blood pressure daily. - Insulin [place], Disposable, (BD ULTRA-FINE SHEBA PEN NEEDLE) 32 [...] daily at bedtime. (more content not included)... [facility] Progress note 11-27-2020 Note Date & Type Note Facility 11-27-2020 Note HNO ID: [id number] Author: Mariama Chang [facility] Service: ? Author Type: Pharmacist Type: [...] are not present Adherence: denies missed doses Pharmacy:?[facility]? Rx coverage:?Medicare Affordability:?insulin and Victoza costly Diabetes supplies:?[employer] System:?none Past medical, family and social history [...] Inject 30 Units subcutaneously every morning. Insulin [place], Disposable, (BD ULTRA-FINE SHEBA PEN NEEDLE) 32 gauge x 5/32 Use to inject insulin and Victoza, 2 injections per day. Lancets (ExplaraTOUCH ULTRASOFT LANCETS) lancets Test blood sugar four times daily. Uncontrolled diabetes type 2 on insulin latanoprost (XALATAN) 0.005 % ophthalmic solution Use 1 Drop in both eyes daily at bedtime. metFORM (more content not included)... [facility] Progress note 10-23-2020 Note Date & Type Note Facility 10-23-2020 Note HNO ID: [id number] Author: Mariama Chang [facility] Service: ? Author Type: Pharmacist Type: [...] Patient has moved amlodipine to [facility] and is not missing any doses. Has [...] not present Adherence: denies missed doses Pharmacy: [facility] Rx coverage: Medicare Affordability: insulin and Victoza costly Diabetes supplies: [employer] System: none ACTIVE PROBLEM LIST Chronic Pain [...] check blood pressure daily. blood sugar diagnostic (Tao SalesUCH ULTRA TEST) test strip Use to check blood sugar three times daily. hydroCHLOROthiazide (HYDRODIURIL, ESIDRIX) 25 mg tablet Take 1 tablet by mouth once daily. insulin glargine (BASAGLAR KWIKPEN U-100 INSULIN) 100 unit/mL (3 mL) Inject 30 Units subcutaneously every morning. Insulin [place], Disposable, (BD ULTRA-FINE SHEBA PEN NEEDLE) 32 [...] chloride ER (KLOR-CON (more content not included)... [facility] Progress note 09-18-2020 Note Date & Type Note Facility 09-18-2020 Note HNO ID: [id number] Author: Mariama Chang [facility] Service: ? Author Type: Pharmacist Type: [...] out of pocket; doesn't happen often Pharmacy: [facility] Rx coverage: Medicare Affordability: insulin and Victoza costly Diabetes supplies: [employer] System: none ACTIVE PROBLEM LIST Chronic Pain [...] check blood pressure daily. blood sugar diagnostic (Plasti[employer]ure ULTRA TEST) test strip Use to check blood sugar three times daily. hydroCHLOROthiazide (HYDRODIURIL, ESIDRIX) 25 mg tablet Take 1 tablet by mouth once daily. insulin glargine (BASAGLAR KWIKPEN U-100 INSULIN) 100 unit/mL (3 mL) Inject 30 Units subcutaneously every morning. Insulin [place], Disposable, (BD ULTRA-FINE SHEBA PEN NEEDLE) 32 [...] lb) BMI: 23.8 (more content not included)... [facility] Progress note 08-27-2020 Note Date & Type Note Facility 08-27-2020 Note HNO ID: [id number] Author: Bárbara Johnson ty Service: ? Author [...] On ASA:?No ? MEDICATIONS:? Adherence:?denies?missed doses. ? Pharmacy:?[facility]? Rx coverage:?Medicare ? Affordability:?insulin/victoza more [...] to check blood pressure daily. - Insulin [place], Disposable, (BD ULTRA-FINE SHEBA PEN NEEDLE) 32 [...] 4.7 06/24/2020 Chlori (more content not included)... [facility] Progress note 08-25-2020 Note Date & Type Note Facility 08-25-2020 Note HNO ID: [id number] Author: Katy Laboy LPN Service: ? Author [...] today off by 10mmg, pulse was same [facility] Progress note 06-24-2020 Note Date & Type Note Facility 06-24-2020 Note HNO ID: [id number] Author: Evangelista Banegas Service: ? Author Type: Physician Type: Progress [...] Banegas MD. July 01, 2020 11:02 AM [facility] Progress note 06-08-2020 Note Date & Type Note Facility 06-08-2020 Note HNO ID: [id number] Author: Jackie White Service: ? Author Type: Industrial Recruiter Type: Progress Notes Filed: 06/08/2020 1:01 PM Note Text: POPULATION HEALTH NAVIGATION OUTREACH Action/I Patient is due for dilated retinal exam. Patient had ALLYSSA with Dr. Santiago in [place] on 02/05/2020. Will have results sent Contact made with patient or family member? YES Pt identified by name and : YES Outreach Outcome/Action Spoke to patient or caregiver: Patient scheduled Reason for Outreach Care Gap or Scheduling/Wellness visits Payer: Payor: AETNA MEDICARE / Plan: 2359 [employer] MEDICARE PPO / Product Type: PPO / [...] future healthcare decisions with a power of environmental attorney, living will, or advance directives? No. Please bring a copy to your next appointment or email to [email or web address] Referrals: N/A Message Sent to Practice: NO Navigation Signature: Jackie White Population Health Navigator June 08, 2020 1:00 PM [facility] Clinical Note 06-08-2020 Note Date & Type Note Facility 06-08-2020 Note Patient Outreach ([facility] CLINEAV) FRANCISCO CLOUD ([id number]) 1940 M Date Time Provider Department 06/08/20 JACKIE WHITE During your visit today, we recorded the following information about you: Jackie White Population Health Navigator 06/08/2020 1:01 PM Signed POPULATION HEALTH NAVIGATION OUTREACH Action/FYI Patient is due for dilated retinal exam. Patient had ALLYSSA with Dr. Santiago in [place] on 02/05/2020. Will have results sent Contact [...] future healthcare decisions with a power of environmental attorney, living will, or advance directives? No. Please bring a copy to your next appointment or email to [email or web address] Referrals: N/A Message Sent to Practice: [...] by JOCELYN POPULATION HEALTH NAVIGATORJACKIE on 06/08/20 [facility] Clinical Note 04-15-2020 Note Date & Type Note Facility 04-15-2020 Note Patient Outreach ([place] OCC3) FRANCISCO CLOUD ([id number]) 1940 M Date Time Provider Department 04/15/20 [...] Fully Assessed Order(s):SARS-COVID VACCINE 1ST DOSE APPT [[id number]] Order #: [id number] FUTURE Prescriptions as of 04/15/2020 Sig: LOSARTAN [...] Encounter Status:Closed by KAELA PRODUSER on 04/18/20 [facility] Summary Purpose Family History No Family History Records FoundNo Family History Records Found Advance Directives No Advanced Directives Records FoundNo Advanced Directives Records Found Additional Source Comments (unrecognized sect ion and content) No Status Records FoundNo Status Records Found INFORMATION SOURCE (unrecogn ized section and content) DATE CREATED AUTHOR AUTHOR'S OZZIETISHA KAILYNIKER 04/05/2021 [facility] FOR RECORDS PERTAINING TO PATIENTS WHO [...] BE BASED ON THE PRIMARY CLINICAL RECORDS. [employer] provides no warranty or guarantee of the accuracy or completeness of information in this document.
[2023-05-19 15:35] VITALS: BP 150/65; PULSE 58
== END 2023-05-19 12:53 | disposition home or self-care (01) ==
LOC: MEDOUTP 12:54
PROVIDERS: PCP Internal Medicine; Referring Provider Psychiatry & Neurology Neurology; Visit Provider Psychiatry & Neurology Neurology
DX: D50.9 Iron deficiency anemia, unspecified (principal)
CPT/HCPCS: 96365; 96366; J1756; J7050; A4216

== ENCOUNTER 2023-06-03 11:48 | Outpatient (CLI) | payer MEDICARE, SELFPAY ==
[2023-06-03 12:10] VITALS: BP 139/51; PULSE 62; RESP 16; TEMP 36.3; O2SAT 94; BMI 25.7
[2023-06-03] MEDS: 0.9% NaCl Peripheral Flush Adult/Peds IV (12:12)
[2023-06-03] MEDS: Iron Sucrose Complex 300 MG in 0.9% Normal Saline (250mL Bag) 250 ML 177 MG IV (12:13)
[2023-06-03] MEDS: 0.9% NaCl IVPB Med Flush (250 mL) 15 ML IV (12:13)
[2023-06-03 14:12] VITALS: BP 172/58; PULSE 77; RESP 16; TEMP 37.2; O2SAT 91
== END 2023-06-03 11:49 | disposition home or self-care (01) ==
LOC: MEDOUTP 11:49
PROVIDERS: PCP Internal Medicine; Referring Provider Psychiatry & Neurology Neurology; Visit Provider Psychiatry & Neurology Neurology
DX: D50.9 Iron deficiency anemia, unspecified (principal)
CPT/HCPCS: 96365; 96366; J1756; J7050; A4216

== ENCOUNTER 2023-06-16 12:41 | Outpatient (CLI) | payer MEDICARE, SELFPAY ==
[2023-06-16 12:52] VITALS: BP 132/52; PULSE 54; RESP 18; TEMP 36.3; O2SAT 95
[2023-06-16] MEDS: 0.9% NaCl Peripheral Flush Adult/Peds IV (13:03)
[2023-06-16] MEDS: 0.9% NaCl IVPB Med Flush (250 mL) 15 ML IV (13:03)
[2023-06-16] MEDS: Iron Sucrose Complex 300 MG in 0.9% Normal Saline (250mL Bag) 250 ML 177 MG IV (13:08)
[2023-06-16 15:10] VITALS: BP 136/51; PULSE 62; RESP 16; TEMP 36.4; O2SAT 93
== END 2023-06-16 12:42 | disposition home or self-care (01) ==
LOC: MEDOUTP 12:41
PROVIDERS: PCP Internal Medicine; Referring Provider Psychiatry & Neurology Neurology; Visit Provider Psychiatry & Neurology Neurology
DX: D50.9 Iron deficiency anemia, unspecified (principal)
CPT/HCPCS: 96365; 96366; J1756; J7050; A4216

== ENCOUNTER → 2023-07-06 | Outpatient (CLI) | payer MEDICARE, SELFPAY ==
--- NOTE | 2023-07-06 15:00 | RAD_ITS ---
STUDY: X-RAY CHEST REASON FOR EXAM: Male, 82 years old. Shortness of breath, sudden onset TECHNIQUE: PA and 2 lateral views of the chest. COMPARISON: None. FINDINGS: Lungs are expanded with diffuse interstitial edema in both lung bedoya, no organized infiltrate, there are small pleural effusions. Findings can be seen with CHF or diffuse inflammatory process. Normal size heart. Normal mediastinum and arianne. Normal visualized pulmonary arteries. Normal visualized aortic arch and descending thoracic aorta. Normal visualized thoracic spine. Normal visualized ribs, clavicles, and shoulders. There is no demonstrated abnormality of the visualized soft tissue structures of the upper abdomen. RAD/Chest PA and Lateral IMPRESSION: Diffuse opacifications in both lung bedoya with small bilateral pleural effusions seen best on the lateral films suggesting pulmonary vascular congestion or diffuse inflammatory process. Follow-up recommended to ensure resolution Electronically Signed: Colton Mathias MD at 11:07 EDT ,
[2023-07-06 17:36] LABS: Absolute Lymphocyte Count 0.84 X10^3/uL (0.83-4.51); Basophil# 0.03 X10^3/uL; Basophil% 0.3 % (0-1); Hematocrit 30.4 % (40-54); Hemoglobin 9.9 g/dL (13.0-16.5); Lymphocyte # 0.84 X10^3/ul (0.83-4.51); Lymphocyte % 8.3 % (19-41); Mean Corp Hgb Conc 32.6 g/dL (32-36); Mean Corpuscular Volume 95.3 fL (80-94); Monocyte# 1.03 X10^3/uL; Monocyte% 10.2 % (0-10); NRBC Flagged by Analyzer 0 % (0-5); Neutrophil # 8.04 X10^3/uL (2.7-7.7); Neutrophil % 79.8 % (47-70); Platelet Count 256 K/mm3 (150-450); RBC Distribution Width CV 14.4 % (11.6-14.6); RBC Distribution Width SD 50.2 fl (35.1-43.9); Red Blood Count 3.19 M/mm3 (4.6-6.2); White Blood Count 10.1 K/mm3 (4.4-11.0)
[2023-07-06 18:12] LABS: BNP,B-Type NATRIURETIC PEPTIDE 320.1 pg/mL (0-100)
[2023-07-06 18:23] LABS: Anion Gap 9 (5-15); BUN 48 mg/dL (7-18); BUN/Creat Ratio 19.8 RATIO (10-20); Calcium,Total 8.9 mg/dL (8.5-10.1); Chloride 100 mmol/L (98-107); Creatinine, Serum 2.43 mg/dL (0.70-1.30); EST Glomerular Filtration Rate 27 mL/min (>60); Est Glom Filt Rate - Afr Amer 33 mL/min (>60); Glucose 115 mg/dL (74-106); Potassium 4.2 mmol/L (3.5-5.1); Sodium Level 137 mmol/L (136-145); Thyroid Stim Hormone (TSH) 0.88 uIU/mL (0.358-3.74)
[2023-07-07 17:11] LABS: Iron 17 ug/dL (65-175); Iron Binding Capacity,Total 159 ug/dL (250-450); PERCENT IRON SATURATION 10.7 % (15.0-55.0)
== END | disposition home or self-care (01) ==
PROVIDERS: Nurse Practitioner Gerontology; PCP Internal Medicine; Referring Provider Internal Medicine Cardiovascular Disease; Visit Provider Internal Medicine Cardiovascular Disease
DX: R53.82 Chronic fatigue, unspecified (principal); I50.9 Heart failure, unspecified; I11.0 Hypertensive heart disease with heart failure; R06.02 Shortness of breath; R53.1 Weakness; D64.9 Anemia, unspecified; Z51.81 Encounter for therapeutic drug level monitoring; Z79.899 Other long term (current) drug therapy; E61.1 Iron deficiency
CPT/HCPCS: 36415; 71046; 80048; 82746; 83540; 83550; 83880; 84443; 85025

== ENCOUNTER 2023-07-09 03:30 | Inpatient (IN) | payer MEDICARE, SELFPAY ==
[2023-07-09] VITALS (12 sets, daily range): BP systolic 104–149; BP diastolic 54–85; PULSE 65–137; RESP 17–20; TEMP 36.6–37.1; O2SAT 87–96; BMI 28.3; BMI 27.7
--- NOTE | 2023-07-09 03:40 | EKG12_ITS ---
Test Reason : SOB Blood Pressure : / mmHG Vent. Rate : 067 BPM Atrial Rate : 067 BPM P-R Int : 150 ms QRS Dur : 090 ms QT Int : 424 ms P-R-T Axes : 044 051 071 degrees QTc Int : 448 ms Normal sinus rhythm Normal ECG Confirmed by DWAYNE FORD MD ([id number]), editorial director ARMAND DUKE ([id number]) on 07/11/2023 9:40:44 AM Referred By: ELIZABETH Confirmed By:DWAYNE FORD MD
--- NOTE | 2023-07-09 03:41 | EDS_ITS ---
HPI History of Present Illness Chief Complaint: Shortness of Breath Detail of Chief Complaint: Generalized weakness Informant: patient Narrative Narrative: Patient presents the emergency department with complaint of generalized weakness. Patient states symptoms have been going on off and on for about a week. Tonight he needed to urinate and could not stand therefore the called the squad. Patient apparently was able to urinate at some point. No falls. He denies shortness of breath. He denies chest pain. He denies fever or recent illness. Patient does have history of CHF as well as prior stroke with left-sided weakness. Patient able to ambulate typically with assistance and a gait belt. [facility] Medical History (Updated 07/09/23 @ 05:[address] Shelia Davenport, DO) Absent pedal pulses Acute left-sided muscle weakness BiPAP (biphasic positive airway pressure) dependence Cardiology follow-up encounter Chronic anemia Congestive heart failure Coronary artery disease Depression Depression Dietary restriction Dysphagia Essential hypertension Facial droop due to acute stroke Fatigue History of CVA (cerebrovascular accident) (12/2020) History of echocardiogram History of edema Hyperlipidemia Hypertension Incontinence Insulin dependent diabetes mellitus Limb weakness Low iron Non-smoker Normocytic normochromic anemia Obstructive Sleep Apnea-Hypopnea Syndrome Osteoarthritis Peripheral vascular occlusive disease Pneumonia Prostate disease Proteinuria due to type 2 diabetes mellitus Rash Recurrent inguinal hernia of right side without obstruction or gangrene Restless legs Right pontine CVA Right renal artery stenosis Skin lesion of face Stroke/cerebrovascular accident Type 2 diabetes mellitus Unsteadiness Ventricular tachycardia seen on hall monitor (02/20/21) Walker as ambulation aid Wears glasses Home Medications multivitamin,ro-gocr-ocyluade (Complete Multivitamin tablet) 1 tab PO QDAY supplement 03/03/17 [History Last Taken 01/11/23] Handicap Placard #1 ea 02/12/21 [Rx Last Taken Unknown] latanoprost 0.005 % eye drops 1 drp EACH EYE HS eyes 02/24/22 [History Last Taken 01/10/23] clopidogrel 75 mg tablet (Plavix) 75 mg PO DAILY blood thinner #90 tabs 06/07/22 [Rx Last Taken 01/03/23] pen needle, diabetic 32 gauge x /32 (BD Sanaz 2nd Gen Pen Needle) #50 ea 06/17/22 [Rx Last Taken Unknown] amlodipine 10 mg tablet 10 mg PO DAILY BP #90 tabs 10/15/22 [Rx Last Taken 01/12/23] doxazosin 8 mg tablet 8 mg PO QHS #90 tabs 11/19/22 [Rx Last Taken 01/11/23] furosemide 40 mg tablet (Lasix) 40 mg PO DAILY water pill #90 tabs 11/26/22 [Rx Last Taken 01/11/23] carvedilol 6.25 mg tablet 6.25 mg PO BID heart #60 tabs 12/03/22 [Rx Last Taken 01/12/23] pramipexole 0.125 mg tablet 0.125 mg PO QHS parkinsons #90 tabs 12/24/22 [Rx Last Taken 01/11/23] insulin glargine 100 unit/mL (3 mL) subcutaneous pen (Basaglar KwikPen U-100 Insulin) 24 unit subcut DAILY blood sugar 01/03/23 [History Last Taken 01/11/23] insulin lispro 100 unit/mL subcutaneous pen (Humalog KwikPen (U-100) Insulin) 1 unit (0.01 mL) subcut TIDAC PRN SLIDING SCALE #15 mL 01/10/23 [Rx Last Taken Unknown] hydralazine 100 mg tablet 100 mg PO ONCE #90 tabs 02/01/23 [Rx Last Taken Unknown] sertraline 50 mg tablet 50 mg PO QHS mood #90 tabs 02/23/23 [Rx Last Taken Unknown] ezetimibe 10 mg tablet (Zetia) 10 mg PO QHS cholesterol #90 tabs 05/04/23 [Rx Last Taken Unknown] gabapentin 100 mg capsule 100 mg PO BID pain #180 caps 05/04/23 [Rx Last Taken Unknown] gabapentin 300 mg capsule 300 mg PO 2100 pain #90 caps 05/04/23 [Rx Last Taken Unknown] losartan 25 mg tablet 25 mg PO DAILY BP #90 tabs 05/04/23 [Rx Last Taken Unknown] hydralazine 25 mg tablet 75 mg (3 x 25 mg) PO .COMPLEX BP #540 tabs 06/30/23 [Rx Last Taken Unknown] finasteride 5 mg tablet 5 mg PO DAILY 07/09/23 [History Last Taken Unknown] Allergy/AdvReac Type Severity Reaction Status Date / Time meloxicam [From Mobic] Allergy Intermediate itching Verified 06/16/23 12:51 pravastatin [From Pravachol] AdvReac Mild myalgia Verified 06/16/23 12:51 cholestyramine AdvReac hypoglycemi Verified 06/16/23 12:51 a Family History (Reviewed 02/01/23 @ 15:11 by Adi Arias TRAVELING CRANE OPERATOR, TRAVELING CRANE OPERATOR-C) Mother Hypertension Cancer Father Heart disease Diabetes Surgical History H/O transurethral resection of prostate (01/12/23) History of cataract surgery History of herniorrhaphy History of hydrocelectomy History of lumbar laminectomy History of prostate surgery History of stent insertion of renal artery (08/05/21) Hx of cystoscopy Hx of total knee arthroplasty Social History (Reviewed 02/01/23 @ 15:11 by Adi Arias TRAVELING CRANE OPERATOR, TRAVELING CRANE OPERATOR-C) household members: spouse and other details: Abigail is his 's name housing: house number of children: 2 current occupational status: retired and other details: worked for [employer] prior to retiring leisure activities: other Smoking Status: Never smoker Electronic Cigarette Use: not used second hand exposure: No alcohol intake: former substance use type: does not use what type of physical activity do you participate in: walking frequency: 1-2 times per week inés/hoahaoism: None seatbelt use: always ROS ROS ED Review of Systems ROS Unobtainable: other Constitutional Constitutional ED: Reports lethargy; Denies chills, fever(s), sweats or weight loss Eyes Eyes: Denies blurry vision, change in vision or diplopia ENT ENT ED: Denies rhinorrhea or sore throat Cardiovascular Cardiovascular: Denies chest pain, orthopnea or racing heartbeat Respiratory/Chest Respiratory/Chest: Denies cough, dyspnea, dyspnea on exertion, orthopnea or sputum Gastrointestinal Gastrointestinal: Denies abdominal pain, diarrhea, nausea or vomiting Genitourinary Genitourinary ED: Denies dysuria, hematuria or urinary frequency Musculoskeletal Musculoskeletal: Denies arthralgias, back pain, myalgias or neck pain Integumentary Denies abscess, Abrasions or rash Neurologic Neurologic: Reports weakness; Denies headache(s) Psychiatric Psychiatric: Denies anxiety, depression or suicidal thoughts Endocrine Endocrinology: Denies polydipsia, polyphagia or polyuria Hematologic/Lymphatic Hematologic/Lymphatic: Denies easy bleeding, easy bruising or lymphadenopathy Allergic/Immunologic Allergic/Immunologic ED: Denies mouth swelling, tongue swelling or urticaria EXAM Physical Exam Const Vital Signs: 07/09/23 03:32 07/09/23 03:36 07/09/23 03:38 Temperature 97.8 F 97.8 F Temperature Source Temporal Temporal Pulse Rate 67 67 Respiratory Rate 19 H 19 H Respiratory Effort Short of Breath Respiratory Depth Normal Respiratory Pattern Normal Blood Pressure 128/54 H 128/54 H Blood Pressure Mean 78 78 Pulse Ox 87 96 Oxygen Delivery Method Room Air Nasal Cannula Nasal Cannula Oxygen Flow Rate (L/min) 2 2 07/09/23 04:48 Temperature 98 F Temperature Source Temporal Pulse Rate 66 Respiratory Rate 19 H Respiratory Effort Respiratory Depth Respiratory Pattern Blood Pressure 120/58 L Blood Pressure Mean 78 Pulse Ox 96 Oxygen Delivery Method Nasal Cannula Oxygen Flow Rate (L/min) 2 Positive well nourished and well developed General Appearance ED: well developed and NAD HEENT Reports TM's clear and moist mucous membranes normocephalic and atraumatic; Negative for trauma or tenderness Tympanic Membrane ED: Yes TM's clear Eyes PERRL and EOMs intact bilaterally General Eye ED: Negative for pale conjunctiva or scleral icterus Neck no lymphadenopathy, supple and no JVD General: Negative for tenderness Chest Wall inspection of chest normal and palpation of chest normal Chest: Negative for tenderness Resp normal respiratory effort and clear to auscultation bilaterally Effort and Inspection: Negative for respiratory distress or pain with movement Auscultation: Negative for rhonchi, wheezes or diminished lung sounds Cardio regular rate, regular rhythm, S1 normal heart sound, S2 normal heart sound and no murmurs Peripheral Pulses: pulses 2+ throughout GI normal to inspection, nondistended, normoactive bowel sounds, soft to palpation, non-tender, non-distended and no masses Back/Spine no CVA tenderness and no thoracic nor lumbar tenderness Back/Spine Narrative: Contracture of left hand and weakness of the left arm. Extremity normal to inspection Extremity Narrative: +1 edema right lower extremity and +2 edema left lower extremity General Extremety ED: Negative for edema General Extremity: Negative for edema Neuro oriented x3, CN's II-XII intact bilaterally, no sensory deficits noted and gait normal Sensorium / Orientation: awake, alert, oriented to person, oriented to place and oriented to time Motor Exam: strength 5/5 throughout and strength abnormal Psych mental status grossly normal Skin no rashes or lesions noted and no wounds MDM MDM MDM Narrative Medical decision making narrative: Patient presents with complaint of generalized weakness for the last week. Diff erential would be extensive in the patient of his age including cardiac disease versus electrolyte abnormality versus anemia or infectious process. IV established on arrival. EKG obtained showed sinus rhythm with rate of 67 bpm with no acute ST segment changes. While the tech was obtaining the EKG she noted short run of sinus bradycardia with heart rates in the 30s. Basic labs will be obtained. Patient also noted on arrival to be hypoxic with O2 sat of 87% on room air. CBC with differential obtained showed an anemia with hemoglobin of 8.7. He was dropped a gram in the last 4 days and almost 4 g since March. He denies blood in the stool or black tarry stool. Lab Data Attestation: I reviewed the patient's lab results. Labs: Laboratory Results - last 24 hr 07/09/23 03:56 WBC 10.1 RBC 2.86 L Hgb 8.7 L Hct 26.6 L MCV 93.0 MCH 30.4 MCHC 32.7 RDW Std Deviation 47.8 H RDW Coeff of Cait 14.2 Plt Count 286 MPV 10.3 Immature Gran % (Auto) 0.500 Neut % (Auto) 73.6 H Lymph % (Auto) 10.9 L [place] % (Auto) 11.1 H Eos % (Auto) 3.4 Baso % (Auto) 0.5 Absolute Neuts (auto) 7.5 Absolute Lymphs (auto) 1.10 Nucleated RBC % 0 Sodium 138 Potassium 3.8 Chloride 103 Carbon Dioxide 28.0 Anion Gap 7 BUN 59 H Creatinine 2.42 H Estim Creat Clear Calc 27.61 Est GFR (MDRD) Af Amer 33 L Est GFR (MDRD) Non-Af 27 L BUN/Creatinine Ratio 24.4 H Glucose 124 H Calcium 8.4 L Troponin I High Sens 12 B-Natriuretic Peptide 289.5 H Radiography Chest X-Ray - ED: 1 View Diagnostic Testin view chest x-ray obtained interpreted by myself is slight pulmonary congestion with no evidence of infiltrate. Suspect small bilateral pleural effusions. EKG Initial EKG: Attestation: I personally reviewed and interpreted this EKG as follows: Comments: Sinus rhythm with rate of 67 bpm with no acute ST segment changes Discharge Plan Triage Chief Complaint: Shortness of Breath ED Provider: Shelia Davenport Dx/Rx/DC Orders Clinical Impression: Weakness, Bradycardia, Anemia, CHF (congestive heart failure), Hypoxemia Prescriptions: No Action multivitamin,zz-fdud-svhkfhnp tablet tablet 1 tab PO QDAY hydralazine 100 mg tablet 100 mg PO ONCE Qty: 90 3RF Rx Instructions: 100mg in AM, 75mg in afternoon, 75mg in evening latanoprost 0.005 % drops 1 drp EACH EYE HS Patient Comments: - insulin glargine [Basaglar KwikPen U-100 Insulin] 100 unit/mL (3 mL) insulin pen 24 unit subcut DAILY finasteride 5 mg tablet 5 mg PO DAILY (DME) Handicap Placard See Rx Instructions .Route .MEDSUPPLY Qty: 1 0RF Rx Instructions: Length of time: 5 years clopidogrel [Plavix] 75 mg tablet 75 mg PO DAILY Qty: 90 3RF Hold Instructions: Resume on 01/26/23. (DME) pen needle, diabetic [BD Sanaz 2nd Gen Pen Needle] 32 gauge x 5/32 needle See Rx Instructions .ROUTE .MEDSUPPLY Qty: 50 2RF Rx Instructions: use once daily to adminster insulin as directed. amlodipine 10 mg tablet 10 mg PO DAILY Qty: 90 3RF doxazosin 8 mg tablet 8 mg PO QHS Qty: 90 3RF furosemide [Lasix] 40 mg tablet 40 mg PO DAILY Qty: 90 3RF carvedilol 6.25 mg tablet 6.25 mg PO BID Qty: 60 11RF Rx Instructions: must administer with a meal/food pramipexole 0.125 mg tablet 0.125 mg PO QHS Qty: 90 3RF insulin lispro [Humalog KwikPen Insulin] 100 unit/mL insulin pen 1 unit subcut TIDAC PRN (Reason: SLIDING SCALE) Qty: 15 3RF sertraline 50 mg tablet 50 mg PO QHS Qty: 90 3RF ezetimibe [Zetia] 10 mg tablet 10 mg PO QHS Qty: 90 3RF Rx Instructions: take at bedtime gabapentin 100 mg capsule 100 mg PO BID Qty: 180 3RF gabapentin 300 mg capsule 300 mg PO 2100 Qty: 90 3RF losartan 25 mg tablet 25 mg PO DAILY Qty: 90 3RF hydralazine 25 mg tablet 75 mg PO .COMPLEX Qty: 540 1RF Rx Instructions: 75 mg orally 75mg in afternoon and evening orally.; Primary Care Provider: Jennifer Watt Referrals: Jennifer Watt MD [Primary Care Provider] - Disposition Disposition: Acute Care Hospital [facility]
[2023-07-09] MEDS: 0.9% Normal Saline (1000mL) 1,000 ML 1000 ML IV (04:04)
[2023-07-09 04:10] LABS: Absolute Neutrophil Count 7.5 X10^3/uL (2.0-7.7); Basophil# 0.05 X10^3/uL; Basophil% 0.5 % (0-1); Eosinophil# 0.34 X10^3/uL; Eosinophils% 3.4 % (0-5); Hematocrit 26.6 % (40-54); Hemoglobin 8.7 g/dL (13.0-16.5); Lymphocyte % 10.9 % (19-41); Mean Corp Hgb Conc 32.7 g/dL (32-36); Mean Corpuscular Hgb 30.4 pg (27.0-32.0); Mean Platelet Vol. 10.3 fl (6.2-12.0); Monocyte# 1.12 X10^3/uL; Monocyte% 11.1 % (0-10); NRBC Flagged by Analyzer 0 % (0-5); Neutrophil # 7.47 X10^3/uL (2.7-7.7); Neutrophil % 73.6 % (47-70); Platelet Count 286 K/mm3 (150-450); RBC Distribution Width CV 14.2 % (11.6-14.6); RBC Distribution Width SD 47.8 fl (35.1-43.9); Red Blood Count 2.86 M/mm3 (4.6-6.2); White Blood Count 10.1 K/mm3 (4.4-11.0)
--- NOTE | 2023-07-09 04:28 | RAD_ITS ---
EXAM: XR CHEST, 1 VIEW CLINICAL INDICATION: dyspnea TECHNIQUE: Frontal view of the chest. COMPARISON: 2 view chest 07/06/2023 FINDINGS: LUNGS AND PLEURAL SPACES: Bibasilar airspace disease and small pleural effusions. No pneumothorax. HEART: Unremarkable. Cardiac silhouette not enlarged. MEDIASTINUM: Central airways and mediastinal contour are unremarkable. BONES/JOINTS: Unremarkable. No acute fracture. SOFT TISSUES: Unremarkable. RAD/Chest 1 View (Portable) IMPRESSION: Bibasilar airspace disease and small pleural effusions. Findings may indicate atelectasis or infection. Electronically Signed: Alphonse Pena MD at 6:11 EDT ,
[2023-07-09 04:29] LABS: Anion Gap 7 (5-15); BUN 59 mg/dL (7-18); BUN/Creat Ratio 24.4 RATIO (10-20); Calcium,Total 8.4 mg/dL (8.5-10.1); Chloride 103 mmol/L (98-107); Creatinine, Serum 2.42 mg/dL (0.70-1.30); EST Glomerular Filtration Rate 27 mL/min (>60); Est Glom Filt Rate - Afr Amer 33 mL/min (>60); Estimated Creatinine Clearance 27.61 ml/min; Glucose 124 mg/dL (74-106); Potassium 3.8 mmol/L (3.5-5.1); Sodium Level 138 mmol/L (136-145); Troponin-I HS 12 pg/mL (3.0-78.0)
[2023-07-09 04:41] LABS: BNP,B-Type NATRIURETIC PEPTIDE 289.5 pg/mL (0-100)
--- NOTE | 2023-07-09 05:02 | PCM.HP.STD ---
HPI - General General Date of Admission: 07/09/23 Date of Service: 07/09/23 Chief Complaint: Weakness HPI Narrative SHAISTA CLOUD, is a 82 M who presented to [facility] ED on 07/09/2023 with worsening weakness. Patient seen at bedside in the ED, present. Patient was sitting up fairly comfortably in bed. He appeared somewhat fatigued but was otherwise answering questions appropriately. States that he has felt generally weaker over the past week or so. He lives at home with his and does have a degree of debility after history of prior stroke with left-sided weakness but is typically able to ambulate with assistance and gait belt. However, he got up to urinate earlier this morning and was unable to stand even with assistance to urinate, so called the squad to bring him in. Patient otherwise denies any recent chest pain, shortness of breath, fevers or chills. He denies any lightheadedness or dizziness when going from sitting to standing. Denies any difficulty with urination. No other acute concerns at this time. In the ED, patient was noted to be hypoxic to 87% on room air, does not wear oxygen at home. Chest x-ray on 07/05 showed diffuse opacifications of both lung bedoya with small bilateral pleural effusions suggesting pulmonary vascular congestion versus diffuse inflammatory process. Repeat chest x-ray on 07/08 completed but read is pending, on my wet read appears similar to previous. BNP was 289, down from 320 on 07/05. Was noted to have a hemoglobin of 8.7, down from 9.9 on 07/05. Notably, stool occult blood was negative and patient denies any recent dark or bloody bowel movements. Has history of CKD, creatinine was 2.43, similar to baseline. Blood pressure was stable in 120s over 50s. Patient notably is on extensive blood pressure regimen, follows with cardiology for this. notes they have been checking his blood pressures most every day and they have been in the 120s to 130s systolic fairly consistently here recently. EKG showed normal sinus rhythm with heart rate in the 60s. However, patient was noted on telemetry to have a heart rate dropped into the 30s, was asymptomatic at the time. Rhythm strip appears to show sinus bradycardia. Per last cardiology office note in 01/2023, patient has had asymptomatic sinus bradycardia similar to this in the past it appears. Given patient's worsening weakness and other medical concerns, will be admitted for further management. [facility] Medical History (Updated 07/09/23 @ 14:[address] Juliane Lui MD) Absent pedal pulses Acute left-sided muscle weakness BiPAP (biphasic positive airway pressure) dependence Cardiology follow-up encounter Chronic anemia Congestive heart failure Coronary artery disease Depression Depression Dietary restriction Dysphagia Essential hypertension Facial droop due to acute stroke Fatigue History of CVA (cerebrovascular accident) (12/2020) History of echocardiogram History of edema Hyperlipidemia Hypertension Incontinence Insulin dependent diabetes mellitus Limb weakness Low iron Non-smoker Normocytic normochromic anemia Obstructive Sleep Apnea-Hypopnea Syndrome Osteoarthritis Peripheral vascular occlusive disease Pneumonia Prostate disease Proteinuria due to type 2 diabetes mellitus Rash Recurrent inguinal hernia of right side without obstruction or gangrene Restless legs Right pontine CVA Right renal artery stenosis Skin lesion of face Stroke/cerebrovascular accident Type 2 diabetes mellitus Unsteadiness Ventricular tachycardia seen on alarm security or surveillance monitor (02/20/21) Walker as ambulation aid Wears glasses Home Medications multivitamin,[id number] (Complete Multivitamin tablet) 1 tab PO QDAY supplement 03/03/17 [History Last Taken 01/11/23] Handicap Placard #1 ea 02/12/21 [Rx Last Taken Unknown] latanoprost 0.005 % eye drops 1 drp EACH EYE HS eyes 02/24/22 [History Last Taken 01/10/23] clopidogrel 75 mg tablet (Plavix) 75 mg PO DAILY blood thinner #90 tabs 06/07/22 [Rx Last Taken 01/03/23] pen needle, diabetic 32 gauge x 5/32 (BD Sanaz 2nd Gen Pen Needle) #50 ea 06/17/22 [Rx Last Taken Unknown] amlodipine 10 mg tablet 10 mg PO DAILY BP #90 tabs 10/15/22 [Rx Last Taken 01/12/23] doxazosin 8 mg tablet 8 mg PO QHS #90 tabs 11/19/22 [Rx Last Taken 01/11/23] furosemide 40 mg tablet (Lasix) 40 mg PO DAILY water pill #90 tabs 11/26/22 [Rx Last Taken 01/11/23] carvedilol 6.25 mg tablet 6.25 mg PO BID heart #60 tabs 12/03/22 [Rx Last Taken 11/01/23] pramipexole 0.125 mg tablet 0.125 mg PO QHS parkinsons #90 tabs 12/24/22 [Rx Last Taken 01/11/23] insulin glargine 100 unit/mL (3 mL) subcutaneous pen (Basaglar KwikPen U-100 Insulin) 24 unit subcut DAILY blood sugar 01/03/23 [History Last Taken 01/11/23] insulin lispro 100 unit/mL subcutaneous pen (Humalog KwikPen (U-100) Insulin) 1 unit (0.01 mL) subcut TIDAC PRN SLIDING SCALE #15 mL 01/10/23 [Rx Last Taken Unknown] hydralazine 100 mg tablet 100 mg PO ONCE #90 tabs 02/01/23 [Rx Last Taken Unknown] sertraline 50 mg tablet 50 mg PO QHS mood #90 tabs 02/23/23 [Rx Last Taken Unknown] ezetimibe 10 mg tablet (Zetia) 10 mg PO QHS cholesterol #90 tabs 05/04/23 [Rx Last Taken Unknown] gabapentin 100 mg capsule 100 mg PO BID pain #180 caps 05/04/23 [Rx Last Taken Unknown] gabapentin 300 mg capsule 300 mg PO 2100 pain #90 caps 05/04/23 [Rx Last Taken Unknown] losartan 25 mg tablet 25 mg PO DAILY BP #90 tabs 05/04/23 [Rx Last Taken Unknown] hydralazine 25 mg tablet 75 mg (3 x 25 mg) PO .COMPLEX BP #540 tabs 06/30/23 [Rx Last Taken Unknown] finasteride 5 mg tablet 5 mg PO DAILY 07/09/23 [History Last Taken Unknown] Allergy/AdvReac Type Severity Reaction Status Date / Time meloxicam [From Mobic] Allergy Intermediate itching Verified 06/16/23 12:51 pravastatin [From Pravachol] AdvReac Mild myalgia Verified 06/16/23 12:51 cholestyramine AdvReac hypoglycemi Verified 06/16/23 12:51 a Family History Mother Hypertension Cancer Father Heart disease Diabetes Surgical History H/O transurethral resection of prostate (01/12/23) History of cataract surgery History of herniorrhaphy History of hydrocelectomy History of lumbar laminectomy History of prostate surgery History of stent insertion of renal artery (08/05/21) Hx of cystoscopy Hx of total knee arthroplasty Social History household members: spouse and other details: Abigail is his 's name housing: house number of children: 2 current occupational status: retired and other details: worked for [employer] prior to retiring leisure activities: other Smoking Status: Never smoker Electronic Cigarette Use: not used second hand exposure: No alcohol intake: former substance use type: does not use what type of physical activity do you participate in: walking frequency: 1-2 times per week inés/pentecostalism: None seatbelt use: always ROS Constitutional Constitutional: Reports fatigue and weakness; Denies chills or fever(s) Eyes Eyes: Denies change in vision Cardiovascular Cardiovascular: Denies chest pain, dyspnea on exertion, edema, lightheadedness, orthopnea or palpitations Respiratory/Chest Respiratory/Chest: Denies cough or shortness of breath at rest Gastrointestinal Gastrointestinal: Denies abdominal pain, constipation, diarrhea, nausea or vomiting Genitourinary Genitourinary: Denies dysuria Neurologic Neurologic: Denies confusion, dizziness, focal weakness, headache(s), numbness or paresthesias Vital Signs Vital Signs Vital Signs: 07/09/23 03:32 07/09/23 03:36 07/09/23 03:38 Temperature 97.8 F 97.8 F Temperature Source Temporal Temporal Pulse Rate 67 67 Respiratory Rate 19 H 19 H Respiratory Effort Short of Breath Respiratory Depth Normal Respiratory Pattern Normal Blood Pressure 128/54 H 128/54 H Blood Pressure Mean 78 78 Pulse Ox 87 96 Oxygen Delivery Method Room Air Nasal Cannula Nasal Cannula Oxygen Flow Rate (L/min) 2 2 07/09/23 04:48 Temperature 98 F Temperature Source Temporal Pulse Rate 66 Respiratory Rate 19 H Respiratory Effort Respiratory Depth Respiratory Pattern Blood Pressure 120/58 L Blood Pressure Mean 78 Pulse Ox 96 Oxygen Delivery Method Nasal Cannula Oxygen Flow Rate (L/min) 2 Weight Weight: 94.6 kg Body Mass Index (BMI) 28.3 Physical Exam Const alert, no apparent distress and average body habitus Constitutional Narrative: Elderly male, somewhat fatigued appearing, otherwise sitting up comfortably in bed, conversing normally, in no acute distress. General Appearance: cooperative and comfortable HEENT normocephalic, head/scalp atraumatic, hearing grossly normal bilaterally and nasal mucous membranes and turbinates normal Eyes PERRL, EOMs intact bilaterally and conjunctivae normal Neck full ROM Chest inspection of chest normal Resp Resp Narrative: Breathing comfortably on 2 L nasal cannula. Mildly decreased breath sounds bilaterally, no wheezing or crackles noted. Cardio regular rate, regular rhythm, no murmurs and peripheral pulses 2+ throughout GI normal to inspection, nondistended, normoactive bowel sounds, soft to palpation, non-tender and non-distended Back/Spine normal ROM Extremity normal to inspection, full ROM and no pedal edema Skin no rashes or lesions noted Neuro moves all extremities and no focal motor deficits Speech: speech normal Psych mental status grossly normal Results Lab / Micro Data 07/09/23 03:56 07/09/23 03:56 Labs: Laboratory Results - last 24 hr 07/09/23 03:56: WBC 10.1, RBC 2.86 L, Hgb 8.7 L, Hct 26.6 L, MCV 93.0, MCH 30.4, MCHC 32.7, RDW Std Deviation 47.8 H, RDW Coeff of Cait 14.2, Plt Count 286, MPV 10.3, Immature Gran % (Auto) 0.500, Neut % (Auto) 73.6 H, Lymph % (Auto) 10.9 L, [place] % (Auto) 11.1 H, Eos % (Auto) 3.4, Baso % (Auto) 0.5, Absolute Neuts (auto) 7.5, Absolute Lymphs (auto) 1.10, Nucleated RBC % 0, Sodium 138, Potassium 3.8, Chloride 103, Carbon Dioxide 28.0, Anion Gap 7, BUN 59 H, Creatinine 2.42 H, Estim Creat Clear Calc 27.61, Est GFR (MDRD) Af Amer 33 L, Est GFR (MDRD) Non-Af 27 L, BUN/Creatinine Ratio 24.4 H, Glucose 124 H, Calcium 8.4 L, Troponin I High Sens 12, B-Natriuretic Peptide 289.5 H Micro: Microbiology 07/09/23 04:00 Mucosa - Nasopharyngeal SARS-CoV-2, Influenza & RSV (PCR) - Final 07/09/23 04:18 Stool Stool Occult Blood (DAX) - Final Assessment & Plan Assessment/Plan (1) Hypoxemia: (2) Weakness: PLAN: Plan Patient is an 82-year-old male who presented [facility] ED on with worsening weakness. 1. Worsening weakness in setting of mild chronic debility ? Admit under inpatient status to PCU. PT/OT/case management consulted. Unclear etiology at this time. Further workup and treatment of other acute issues as noted below. 2. Acute hypoxia, abnormal chest x-ray ? Noted to be hypoxic to 87% on room air at rest in the ED. Not on home O2, no history of COPD or asthma. Does have history of CHF. Chest x-ray on 07/05 with findings concerning for vascular congestion versus a diffuse inflammatory process. Repeat chest x-ray on 07/08 with read pending. BNP stable, does not appear significantly volume overloaded on exam. Given new hypoxia and initial chest x-ray findings of unclear significance, will obtain CT chest without contrast (contrast precluded by kidney function) for further evaluation. 3. Anemia ? Hemoglobin 8.7 on admit, down from 9.9 on 07/05. Does have history of anemia with hemoglobin values in the 9 range consistently at the end of 2022. Hemoccult stool negative, denied any dark or bloody bowel movements. Iron studies from 07/05 do appear to show iron deficiency anemia. Unclear etiology at this time. Suspect that anemia of chronic kidney disease is contributing to this presentation. 4. Sinus bradycardia ? Normal sinus rhythm in the 60s on admit, but notably dropped to the 30s that was caught on the rhythm strip. Rhythm strip does appear to show sinus bradycardia. Patient follows with [facility], last office visit back in January 2023. Was noted at that time that he has baseline bradycardia and EKG at that point showed sinus bradycardia with heart rate of 40-45. Home beta-wilmer held for now. Continue cardiac monitoring. 5. Hypertension ? Follows with [facility] as noted above. On extensive medication regimen of amlodipine 10 mg daily, carvedilol 6.25 mg twice daily, doxazosin 8 mg daily, Lasix 40 mg daily, losartan 25 mg daily. BP normotensive to borderline low on admit. Will hold home carvedilol and losartan today, and start doxazosin at 4 mg daily and amlodipine at 5 mg daily. Orthostatic vitals ordered. Chronic medical conditions: ? Mood disorder: Stable. Continue home sertraline. ? Movement disorder: Stable. Continue home protocol. ? BPH with obstructive symptoms: Continue home finasteride. ? Neuropathy: Continue home gabapentin. ? History of CVA: Continue home clopidogrel, statin, Zetia ? Type 2 diabetes mellitus: Home regimen of insulin glargine 24 units daily with Humalog sliding scale insulin with meals. Will start Lantus 18 units in the morning and sliding scale insulin with meals as needed, adjust accordingly. DVT prophylaxis: Heparin subcu CODE STATUS: Full code, verified Expected disposition: Home with home health care versus SNF, 2 to 3 days Total clinical time spent by myself addressing the patient's medical issues, reviewing all the data, and collaborating with patient's care team: 55 minutes. Charges/Coding Visit Charges Inpatient E&M: 67767 Init Hosp L2
[2023-07-09] MEDS: Furosemide 100 MG/10 ML Vial 60 MG IV (05:12)
--- NOTE | 2023-07-09 06:01 | CT_ITS ---
EXAM: CT CHEST WITHOUT INTRAVENOUS CONTRAST CLINICAL INDICATION: hypoxia, CXR w/ concern for inflammatory disease TECHNIQUE: Helically acquired images were obtained of the chest without intravenous contrast. This CT exam was performed using one or more of the following dose reduction techniques: automated exposure control, adjustment of the mA and/or kV according to patient size, and/or use of iterative reconstruction technique. COMPARISON: Chest radiograph 07/09/2023 FINDINGS: LUNGS AND PLEURAL SPACES: Small bilateral pleural effusions noted as well as bibasilar atelectasis more prominent on the right than left. No mass. No pneumothorax. HEART: Mild cardiomegaly. Moderate size pericardial effusion. Prominent coronary artery calcification. MEDIASTINUM: Normal. No mediastinal or hilar adenopathy. Esophagus is unremarkable. No hiatal hernia. BONES/JOINTS: No suspicious lytic or blastic abnormality. VASCULATURE: Normal. No aortic aneurysm. CT/Chest without Contrast IMPRESSION: 1. Bilateral pleural effusions and bibasilar atelectasis more prominent on the right than left. 2. Mild cardiomegaly with moderate sized pericardial effusion. Electronically Signed: Pedro Pablo Gray MD at 9:19 EDT ,
[2023-07-09 07:12] LABS: Bedside Glucose 115 mg/dL (74-106)
--- NOTE | 2023-07-09 07:55 | EKG12_ITS ---
Test Reason : Blood Pressure : / mmHG Vent. Rate : 104 BPM Atrial Rate : 300 BPM P-R Int : 000 ms QRS Dur : 086 ms QT Int : 392 ms P-R-T Axes : 000 063 -88 degrees QTc Int : 515 ms Atrial flutter with variable A-V block Nonspecific ST and T wave abnormality Abnormal ECG When compared with ECG of 09-JUL-2023 03:48, MANUAL COMPARISON REQUIRED, DATA IS UNCONFIRMED Confirmed by LOGAN STRONG, NEW ([id number]), continuity editor AP NUNEZ ([id number]) on 07/11/2023 2:01:22 PM Referred By: New Lucero Confirmed By:NEW LUCERO MD
[2023-07-09 08:36] LABS: Erythrocyte Sedimentation Rate 65 mm/hr (0-20)
--- NOTE | 2023-07-09 08:48 | PN.HOSP_ITS ---
Subjective Subjective Has been weak and SOB for the past week. Objective Data Objective Data Vital Signs: Vital Signs Temp Pulse Resp BP Pulse Ox O2 Del Method O2 Flow Rate 36.6 C 105 H 18 109/62 94 Nasal Cannula 2 07/09/23 07:48 07/09/23 07:48 07/09/23 07:48 07/09/23 07:48 07/09/23 07:48 07/09/23 07:48 07/09/23 07:48 Oxygen Flow Rate (L/min) 2 Oxygen Delivery Method Nasal Cannula Weight: 92.8 kg Body Mass Index (BMI) 27.7 Intake & Output: Intake and Output for Last 24 Hours 07/07/23 07/08/23 07/09/23 23:59 23:59 23:59 Intake Total 1000 / 1000 Balance 1000 / 1000 Lab / Micro Data 07/09/23 03:56 07/09/23 03:56 Labs: Laboratory Results - last 24 hr 07/09/23 03:56: WBC 10.1, RBC 2.86 L, Hgb 8.7 L, Hct 26.6 L, MCV 93.0, MCH 30.4, MCHC 32.7, RDW Std Deviation 47.8 H, RDW Coeff of Cait 14.2, Plt Count 286, MPV 10.3, Immature Gran % (Auto) 0.500, Neut % (Auto) 73.6 H, Lymph % (Auto) 10.9 L, [place] % (Auto) 11.1 H, Eos % (Auto) 3.4, Baso % (Auto) 0.5, Absolute Neuts (auto) 7.5, Absolute Lymphs (auto) 1.10, Nucleated RBC % 0, Sodium 138, Potassium 3.8, Chloride 103, Carbon Dioxide 28.0, Anion Gap 7, BUN 59 H, Creatinine 2.42 H, Estim Creat Clear Calc 27.61, Est GFR (MDRD) Af Amer 33 L, Est GFR (MDRD) Non-Af 27 L, BUN/Creatinine Ratio 24.4 H, Glucose 124 H, Calcium 8.4 L, Troponin I High Sens 12, C-React Prot Ext Range 137.00 H, B-Natriuretic Peptide 289.5 H 07/09/23 06:49: POC Glucose 115 H 07/09/23 07:49: ESR 65 H Micro: Microbiology 07/09/23 04:00 Mucosa - Nasopharyngeal SARS-CoV-2, Influenza & RSV (PCR) - Final 07/09/23 04:18 Stool Stool Occult Blood (DAX) - Final Radiography Diagnostic Testing: Radiology Impression Chest X-Ray 07/09/23 04:28 IMPRESSION: Bibasilar airspace disease and small pleural effusions. Findings may indicate atelectasis or infection. Electronically Signed: Alphonse Pena MD at 6:11 EDT , Physical Exam Const Constitutional Narrative: up in chair. no respiratory distress. Manually checked for BP pulsus paradoxus and it was not identified. HEENT head/scalp atraumatic Resp Resp Narrative: bibasilar crackles. Cardio regular rate, regular rhythm, S1 normal heart sound and S2 normal heart sound GI normal to inspection, nondistended, normoactive bowel sounds, soft to palpation, non-tender and non-distended Extremity Extremity Narrative: bilateral LE edema. no foot ulcerations. Neuro Sensorium / Orientation: awake and alert Psych affect normal Assessment & Plan Assessment/Plan (1) Hypoxemia: (2) Weakness: PLAN: Plan Acute HFpEF * EF 65% from echo 02/17/2022 complicated RVSP 55 mmHg * start IV diuresis * CT shows pleural and pericardial effusion. * check echo * monitor labs closely given CKD pericardial effusion * no evidence of pulsus paradoxus * diurese * check echo sinus pause * carvedilol held * cannot rule out need for PPM * continue telemetry monitoring Debility * acute on chronic * due to underlying poor performance status, advanced age and CHF * PT OT * hold gabapentin Elevated ESR/CPR * unclear etiology: infectious v autoimmune v other * check KEVIN, RF. May need further autoimmune work up * check infectious work up: UA, UCx, BCx, pneumonia work up. Hold on abx at present. Orthostatic hypotension * volume overloaded * check AM cortisol Chronic medical conditions: ? Mood disorder: Stable. Continue home sertraline. ? Movement disorder: Stable. Continue home protocol. ? BPH with obstructive symptoms: Continue home finasteride. ? Neuropathy: Continue home gabapentin. ? History of CVA: Continue home clopidogrel, statin, Zetia ? Type 2 diabetes mellitus: Home regimen of insulin glargine 24 units daily with Humalog sliding scale insulin with meals. Will start Lantus 18 units in the morning and sliding scale insulin with meals as needed, adjust accordingly. DVT prophylaxis: Heparin subcu CODE STATUS: Full code, verified Expected disposition: Home with home health care versus SNF, 2 to 3 days Charges/Coding Visit Charges Inpatient E&M: 37790 Subs Hosp L3
--- NOTE | 2023-07-09 09:35 | CASEMGMT ---
CHADD VIEIRA Assessment: Face to Face with pt for initial transition planning/care coordination assessment. CHADD VIEIRA introduced self and role at [facility], pt voices understanding and consents to assessment. Pt is A&O x4 and answers all questions appropriately at this time. Pt sitting up in bed with oxygen on in no distress. Care providers, pharmacy, and demographics verified/updated. Admitting Dx: debility, hypoxia with mild chf exac PCP:Shukri Specialists:Jazmine, cardio; Holly, neuro; [facility] Preferred [facility]acy: [facility] Insurance: [employer] [facility] Prescription Benefit: yes LNOK: Abigail Thomas, ; Jimena Andrea, dtr Living Arrangements: Pt lives with in a single story home with 3 steps to enter with a rail. Pt reports his assists him with all ADL/IADL's. Pt denies concerns at home. Transportation: Pt provides transportation. DME:pox, cane, FWW, shower chair, BGM with sufficient strips and lancets, bipap and grab bars in the bathroom HHC/SNF: Pt reports he is active with [facility] and has been at [facility] in the past. Pt states no concerns with going home at time of dc. Pt reports he would like [facility] to continue. He states he has had oxygen in the past and used [employer]. Should he need oxygen again, pt chooses [employer]. Denies need for a verbal list of other providers. Pt states no further concerns/needs. CM to follow. Advised pt to ask CM if any further question/concerns/needs arise, voices understanding. Pt Goal: Home with [facility] resuming Plan: Home with [facility] [place] Carol FLORENTINO CM
[2023-07-09] MEDS: Gabapentin 100 MG Capsule PO ×2 (10:48→13:30)
[2023-07-09] MEDS: Finasteride 5 MG Tablet PO (10:49)
[2023-07-09] MEDS: Clopidogrel Bisulfate 75 MG Tablet PO (10:50)
[2023-07-09] MEDS: amLODIPine 5 MG Tablet PO (10:50)
[2023-07-09] MEDS: Furosemide 40 MG Tablet PO (10:50)
[2023-07-09] MEDS: Heparin Injection (Vial) 5,000 UNIT/ML VIAL 5000 UNIT SC ×2 (10:51→22:10)
[2023-07-09] MEDS: Insulin Glargine-YFGN 100 UNIT/ML Pen 18 UNIT SC (10:52)
[2023-07-09 11:27] LABS: Magnesium 2.7 mg/dL (1.6-2.6)
--- NOTE | 2023-07-09 11:52 | ECHOD_ITS ---
Reason For Study: pericardial effusion Procedure This was a 2D Doppler, Color Flow transthoracic echocardiogram. The study was technically difficult. Due to ARRHYTHMIA which converted during study. Measurements taken in NSR. Exam performed portable in patient room. Left Ventricle Normal LV size. The estimated ejection fraction is 70 %. Unable to assess diastolic dysfunction. No regional wall motion abnormalities noted. Right Ventricle Normal RV size. Normal systolic function. Atria The left and right atria are normal. No doppler evidence for ASD. Mitral Valve There is severe mitral annular calcification. There is no mitral valve stenosis. No mitral valve insufficiency. Tricuspid Valve There is no tricuspid stenosis. Trivial tricuspid valve insufficiency. Pulmonary artery systolic pressure is 40 mmHg. Aortic Valve Trisinus/trileaflet aortic valve. Aortic sclerosis, no stenosis. There is no aortic stenosis. No aortic valve insufficiency. Pulmonic Valve There is no pulmonic valvular stenosis. No pulmonic valve insufficiency. Great Vessels Normal aortic root. Pericardium/Pleural Moderate pericardial effusion. There are no echocardiographic indications of cardiac tamponade. MMode/2D Measurements & Calculations LVIDd: 4.3 cm IVSd: 1.2 cm Ao root diam: 3.6 cm LVIDs: 2.9 cm LVPWd: 1.3 cm LA dimension: 3.8 cm FS: 33.2 % LAV(MOD-bp): 61.6 ml LVAd ap4: 28.4 cm2 SV(MOD-sp4): 50.2 ml LAV(MOD-bp) Indexed: 28.7 ml/m2 LVLd ap4: 7.6 cm LAV(MOD-sp2): 63.3 ml EDV(MOD-sp4): 87.4 ml LAV(MOD-sp4): 52.8 ml EDV(sp4-el): 89.9 ml LVAs ap4: 17.6 cm2 LVLs ap4: 7.0 cm ESV(MOD-sp4): 37.1 ml ESV(sp4-el): 37.2 ml EF(MOD-sp4): 57.5 % EF(sp4-el): 58.6 % SV(sp4-el): 52.6 ml LA A4 area: 18.4 cm2 TAPSE: 1.6 cm Time Measurements MV dec time: 0.34 sec Doppler Measurements & Calculations MV E max valerio: 161.6 cm/sec MV V2 max: 173.3 cm/sec MV P1/2t max valerio: 165.3 cm/sec MV A max valerio: 145.2 cm/sec MV max P.0 mmHg MV P1/2t: 107.1 msec MV E/A: 1.1 MV V2 mean: 103.7 cm/sec MV mean P.9 mmHg MV dec slope: 451.9 cm/sec2 MV V2 VTI: 55.7 cm MVA(P1/2t): 2.1 cm2 Ao V2 max: 169.1 cm/sec LV V1 max: 115.6 cm/sec PA V2 max: 107.9 cm/sec Ao max P.4 mmHg LV V1 max P.4 mmHg PA V2 mean: 76.4 cm/sec Ao V2 mean: 122.1 cm/sec LV V1 mean P.0 mmHg PA V2 VTI: 18.0 cm Ao mean P.7 mmHg LV V1 mean: 82.4 cm/sec Ao V2 VTI: 33.3 cm LV V1 VTI: 22.5 cm AV (velocity ratio): 0.68 TR max valerio: 314.4 cm/sec TR max P.5 mmHg ECHO/Echo Complete Interpretation Summary The estimated ejection fraction is 70 %. Unable to assess diastolic dysfunction. Moderate pericardial effusion. Ordering Physician: Jesús Belcher Referring Physician: Jennifer Watt Performed By: Aleida Owens, OSMANI, RVT
[2023-07-09 12:36] LABS: Bedside Glucose 173 mg/dL (74-106)
[2023-07-09] MEDS: Insulin Lispro 100 UNIT/ML INSULN.PEN SC ×3 (13:30→22:11)
--- NOTE | 2023-07-09 14:39 | CASEMGMT ---
Social Work SW reviewed therapy notes, pt walked 3 feet. SW met w/pt in room in regard to discharge plan. We spoke about pt going somewhere for rehab vs returning home. Pt would like to think about it. SW provided to pt a list from [facility] of [facility]ci facilities in network w/his insurance, in his preferred geographic area and complete w/quality and resource use data. SW asked pt to review the list, and SW/CM will follow up w/pt on Tuesday. Pt states understanding. ELOY Lazo
--- NOTE | 2023-07-09 14:57 | CON.PCM.CA_ITS ---
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 Will need further monitoring to see if that is the case. Currently he does go into A-fib with RVR and then converts to sinus rhythm and at the time of converting he has long pauses. We can try amiodarone to see if he can maintain patient in sinus rhythm. Recommend amiodarone 400 mg p.o. twice daily for 3 days and then 200 mg daily. If this is not adequate then we can start beta-wilmer at a low dose and see if he is able to tolerate it without problems. (2) CHF (congestive heart failure): QUALIFIERS: Heart failure type: unspecified Heart failure chronicity: unspecified Qualified Code(s): I50.9 - Heart failure, unspecified PLAN: Patient has preserved EF. His creatinine is elevated. May be reasonable to give a dose of Lasix this evening to see if this helps with her shortness of breath. HPI Consult Data Date of Consult: 07/09/23 HPI Narrative Reason for Consultation: Sinus pauses HPI Narrative: SHAISTA CLOUD, is a 82 M who presents with weakness. He has also been having shortness of breath for the last week. On daily he has been having episodes of paroxysmal atrial fibrillation and sinus pauses. These pauses however appear to be happening at the time of conversion from A-fib to sinus rhythm. His beta- wilmer is currently on hold. Review of systems: All systems reviewed. All else is negative except that in HPI [facility] Medical History (Updated 07/09/23 @ 14:[address] Juliane Lui MD) Absent pedal pulses Acute left-sided muscle weakness BiPAP (biphasic positive airway pressure) dependence Cardiology follow-up encounter Chronic anemia Congestive heart failure Coronary artery disease Depression Depression Dietary restriction Dysphagia Essential hypertension Facial droop due to acute stroke Fatigue History of CVA (cerebrovascular accident) (12/2020) History of echocardiogram History of edema Hyperlipidemia Hypertension Incontinence Insulin dependent diabetes mellitus Limb weakness Low iron Non-smoker Normocytic normochromic anemia Obstructive Sleep Apnea-Hypopnea Syndrome Osteoarthritis Peripheral vascular occlusive disease Pneumonia Prostate disease Proteinuria due to type 2 diabetes mellitus Rash Recurrent inguinal hernia of right side without obstruction or gangrene Restless legs Right pontine CVA Right renal artery stenosis Skin lesion of face Stroke/cerebrovascular accident Type 2 diabetes mellitus Unsteadiness Ventricular tachycardia seen on nurse monitoring (02/20/21) Walker as ambulation aid Wears glasses Home Medications multivitamin,[id number] (Complete Multivitamin tablet) 1 tab PO QDAY supplement 03/03/17 [History Last Taken 01/11/23] Handicap Placard #1 ea 02/12/21 [Rx Last Taken Unknown] latanoprost 0.005 % eye drops 1 drp EACH EYE HS eyes 02/24/22 [History Last Taken 01/10/23] clopidogrel 75 mg tablet (Plavix) 75 mg PO DAILY blood thinner #90 tabs 06/07/22 [Rx Last Taken 01/03/23] pen needle, diabetic 32 gauge x /32 (BD Sanaz 2nd Gen Pen Needle) #50 ea 06/17/22 [Rx Last Taken Unknown] amlodipine 10 mg tablet 10 mg PO DAILY BP #90 tabs 10/15/22 [Rx Last Taken 01/12/23] doxazosin 8 mg tablet 8 mg PO QHS #90 tabs 11/19/22 [Rx Last Taken 01/11/23] furosemide 40 mg tablet (Lasix) 40 mg PO DAILY water pill #90 tabs 11/26/22 [Rx Last Taken 01/11/23] carvedilol 6.25 mg tablet 6.25 mg PO BID heart #60 tabs 12/03/22 [Rx Last Taken 01/12/23] pramipexole 0.125 mg tablet 0.125 mg PO QHS parkinsons #90 tabs 12/24/22 [Rx Last Taken 01/11/23] insulin glargine 100 unit/mL (3 mL) subcutaneous pen (Basaglar KwikPen U-100 Insulin) 24 unit subcut DAILY blood sugar 01/03/23 [History Last Taken 01/11/23] insulin lispro 100 unit/mL subcutaneous pen (Humalog KwikPen (U-100) Insulin) 1 unit (0.01 mL) subcut TIDAC PRN SLIDING SCALE #15 mL 01/10/23 [Rx Last Taken Unknown] hydralazine 100 mg tablet 100 mg PO ONCE #90 tabs 02/01/23 [Rx Last Taken Unknown] sertraline 50 mg tablet 50 mg PO QHS mood #90 tabs 02/23/23 [Rx Last Taken Unknown] ezetimibe 10 mg tablet (Zetia) 10 mg PO QHS cholesterol #90 tabs 05/04/23 [Rx Last Taken Unknown] gabapentin 100 mg capsule 100 mg PO BID pain #180 caps 05/04/23 [Rx Last Taken Unknown] gabapentin 300 mg capsule 300 mg PO 2100 pain #90 caps 05/04/23 [Rx Last Taken Unknown] losartan 25 mg tablet 25 mg PO DAILY BP #90 tabs 05/04/23 [Rx Last Taken Unknown] hydralazine 25 mg tablet 75 mg (3 x 25 mg) PO .COMPLEX BP #540 tabs 06/30/23 [Rx Last Taken Unknown] finasteride 5 mg tablet 5 mg PO DAILY 07/09/23 [History Last Taken Unknown] Allergy/AdvReac Type Severity Reaction Status Date / Time meloxicam [From Mobic] Allergy Intermediate itching Verified 06/16/23 12:51 pravastatin [From Pravachol] AdvReac Mild myalgia Verified 06/16/23 12:51 cholestyramine AdvReac hypoglycemi Verified 06/16/23 12:51 a Family History (Reviewed 02/01/23 @ 15:11 by Adi Arias HEALTH INFORMATICS INSTRUCTOR, HEALTH INFORMATICS INSTRUCTOR-C) Mother Hypertension Cancer Father Heart disease Diabetes Surgical History H/O transurethral resection of prostate (01/12/23) History of cataract surgery History of herniorrhaphy History of hydrocelectomy History of lumbar laminectomy History of prostate surgery History of stent insertion of renal artery (08/05/21) Hx of cystoscopy Hx of total knee arthroplasty Social History (Reviewed 02/01/23 @ 15:11 by Adi Arias HEALTH INFORMATICS INSTRUCTOR, HEALTH INFORMATICS INSTRUCTOR-C) household members: spouse and other details: Abigail is his 's name housing: house number of children: 2 current occupational status: retired and other details: worked for [employer] prior to retiring leisure activities: other Smoking Status: Never smoker Electronic Cigarette Use: not used second hand exposure: No alcohol intake: former substance use type: does not use what type of physical activity do you participate in: walking frequency: 1-2 times per week inés/mandaen: None seatbelt use: always Physical Exam Const alert and oriented x3 HEENT normocephalic Eyes no scleral icterus Resp normal respiratory effort Extremity Extremity Narrative: Bilateral pitting edema Risk Stratification Risk Stratification Applicable: No Charges/Coding Visit Charges Inpatient E&M: 58521 Init Hosp L2 Objective Data Vital Signs: Vital Signs Temp Pulse Resp BP Pulse Ox O2 Del Method O2 Flow Rate 98.4 F 90 18 116/62 92 Nasal Cannula 2 07/09/23 14:09 07/09/23 14:09 07/09/23 14:09 07/09/23 14:09 07/09/23 14:09 07/09/23 14:09 07/09/23 14:09 Oxygen Flow Rate (L/min) 2 Oxygen Delivery Method Nasal Cannula Weight: 204 lb 9.423 oz Body Mass Index (BMI) 27.7 Intake & Output: Intake and Output for Last 24 Hours 07/07/23 07/08/23 07/09/23 23:59 23:59 23:59 Intake Total 1650 / 1650 Output Total 1100 / 1100 Balance 550 / 550 Lab / Micro Data 07/09/23 03:56 07/09/23 03:56 Labs: Laboratory Results - last 24 hr 07/09/23 03:56: WBC 10.1, RBC 2.86 L, Hgb 8.7 L, Hct 26.6 L, MCV 93.0, MCH 30.4, MCHC 32.7, RDW Std Deviation 47.8 H, RDW Coeff of Cait 14.2, Plt Count 286, MPV 10.3, Immature Gran % (Auto) 0.500, Neut % (Auto) 73.6 H, Lymph % (Auto) 10.9 L, [place] % (Auto) 11.1 H, Eos % (Auto) 3.4, Baso % (Auto) 0.5, Absolute Neuts (auto) 7.5, Absolute Lymphs (auto) 1.10, Nucleated RBC % 0, Sodium 138, Potassium 3.8, Chloride 103, Carbon Dioxide 28.0, Anion Gap 7, BUN 59 H, Creatinine 2.42 H, Estim Creat Clear Calc 27.61, Est GFR (MDRD) Af Amer 33 L, Est GFR (MDRD) Non-Af 27 L, BUN/Creatinine Ratio 24.4 H, Glucose 124 H, Calcium 8.4 L, Magnesium 2.7 H , Troponin I High Sens 12, C-React Prot Ext Range 137.00 H, B-Natriuretic Peptide 289.5 H 07/09/23 06:49: POC Glucose 115 H 07/09/23 07:49: ESR 65 H 07/09/23 12:12: POC Glucose 173 H Micro: Microbiology 07/09/23 04:00 Mucosa - Nasopharyngeal SARS-CoV-2, Influenza & RSV (PCR) - Final 07/09/23 04:18 Stool Stool Occult Blood (DAX) - Final Cardiology Labs/Tests 07/09/23 03:56: WBC 10.1, RBC 2.86 L, Hgb 8.7 L, Hct 26.6 L, MCV 93.0, MCH 30.4, MCHC 32.7, Plt Count 286, MPV 10.3, Immature Gran % (Auto) 0.500, Neut % (Auto) 73.6 H, Lymph % (Auto) 10.9 L, [place] % (Auto) 11.1 H, Eos % (Auto) 3.4, Baso % (Auto) 0.5, Absolute Neuts (auto) 7.5, Nucleated RBC % 0, Sodium 138, Potassium 3.8, Chloride 103, Carbon Dioxide 28.0, Anion Gap 7, BUN 59 H, Creatinine 2.42 H , Est GFR (MDRD) Af Amer 33 L, Est GFR (MDRD) Non-Af 27 L, BUN/Creatinine Ratio 24.4 H, Glucose 124 H, Calcium 8.4 L, Magnesium 2.7 H, B-Natriuretic Peptide 289.5 H Rhythm: EKG: ECHO: Stress Test: Cardiac Cath: PCI: CT Surgery: Holter monitor: EPS: PPM: CXR: Chest CT Scan: Radiography Diagnostic Testing: Radiology Impression Chest X-Ray 07/09/23 04:28 IMPRESSION: Bibasilar airspace disease and small pleural effusions. Findings may indicate atelectasis or infection. Electronically Signed: Alphonse Pena MD at 6:11 EDT , Chest CT 07/09/23 06:01 IMPRESSION: 1. Bilateral pleural effusions and bibasilar atelectasis more prominent on the right than left. 2. Mild cardiomegaly with moderate sized pericardial effusion. Electronically Signed: Pedro Pablo Gray MD at 9:19 EDT , Echocardiogram 07/09/23 11:52 Interpretation Summary The estimated ejection fraction is 70 %. Unable to assess diastolic dysfunction. Moderate pericardial effusion. Ordering Physician: Jesús Belcher Referring Physician: Jennifer Watt Performed By: Aleida Owens, OSMANI, RVT
[2023-07-09 15:56] LABS: Rheumatoid Factor < 10.0 IU/mL (<15)
[2023-07-09] MEDS: 0.9% Saline Lock 10 ML Syringe IV (17:09)
[2023-07-09] MEDS: Furosemide 40 MG/4 ML Vial IV (17:09)
[2023-07-09 17:51] LABS: Bedside Glucose 172 mg/dL (74-106)
[2023-07-09] MEDS: Amiodarone 200 MG Tablet 400 MG PO (19:46)
[2023-07-09] MEDS: Pramipexole Di-HCl 0.125 MG Tablet PO (22:11)
[2023-07-09] MEDS: Doxazosin 4 MG Tablet PO (22:11)
[2023-07-09] MEDS: Sertraline 50 MG Tablet PO (22:11)
[2023-07-09] MEDS: Ezetimibe 10 MG Tablet PO (22:14)
[2023-07-09 22:47] LABS: Bedside Glucose 164 mg/dL (74-106)
[2023-07-10 03:25] VITALS: BP 132/72; PULSE 63; RESP 16; TEMP 36.9; O2SAT 94
[2023-07-10 05:18] LABS: Bacteria 0 SEEN /hpf (None Seen); Mucous, Urine 0 SEEN /hpf (<or=2+); Red Blood Cells-Urine 0 SEEN /hpf (0-5); Squamous Epithelial Cells - UA 0 SEEN /hpf (0-5); White Blood Cells 0 SEEN /hpf (0-5)
[2023-07-10 05:25] LABS: Color, Urine Yellow (Yellow); Glucose, Dipstick Normal (Normal); Ketone-Dipstick Negative (Negative); Leukocyte Esterase-Dipstick Negative /ul (Negative); Nitrite-Dipstick Negative (Negative); Occult Blood-Urine 10 /ul (Negative); Protein-Dipstick 30 mg/dl (Negative); Specific Gravity, Urine 1.015 (1.002-1.030); Urine Bilirubin Dipstick Negative (Negative); Urine Clarity Clear (Clear); Urine Urobilinogen Normal (Normal)
[2023-07-10] MEDS: Insulin Lispro 100 UNIT/ML INSULN.PEN SC ×4 (06:43→22:33)
[2023-07-10] MEDS: Amiodarone 200 MG Tablet 400 MG PO ×2 (06:45→19:04)
[2023-07-10 07:01] LABS: Hematocrit 27.5 % (40-54); Mean Corp Hgb Conc 32.7 g/dL (32-36); Mean Corpuscular Hgb 30.8 pg (27.0-32.0); Mean Corpuscular Volume 94.2 fL (80-94); Mean Platelet Vol. 10.3 fl (6.2-12.0); Platelet Count 309 K/mm3 (150-450); RBC Distribution Width CV 14.1 % (11.6-14.6); Red Blood Count 2.92 M/mm3 (4.6-6.2); White Blood Count 10.4 K/mm3 (4.4-11.0)
[2023-07-10 07:08] LABS: Bedside Glucose 169 mg/dL (74-106)
[2023-07-10 07:28] VITALS: BP 103/65; PULSE 132; RESP 18; TEMP 36.8; O2SAT 95
[2023-07-10 07:43] LABS: Anion Gap 7 (5-15); BUN 56 mg/dL (7-18); BUN/Creat Ratio 27.3 RATIO (10-20); Calcium,Total 8.5 mg/dL (8.5-10.1); Chloride 102 mmol/L (98-107); Creatinine, Serum 2.05 mg/dL (0.70-1.30); EST Glomerular Filtration Rate 33 mL/min (>60); Est Glom Filt Rate - Afr Amer 40 mL/min (>60); Estimated Creatinine Clearance 29.97 ml/min; Glucose 172 mg/dL (74-106); Potassium 3.6 mmol/L (3.5-5.1); Sodium Level 139 mmol/L (136-145)
[2023-07-10] MEDS: Acetaminophen 325 MG Tablet 650 MG PO (07:48)
[2023-07-10] MEDS: Clopidogrel Bisulfate 75 MG Tablet PO (07:49)
[2023-07-10] MEDS: amLODIPine 5 MG Tablet PO (07:49)
[2023-07-10] MEDS: 0.9% Saline Lock 10 ML Syringe IV ×2 (07:50→18:51)
[2023-07-10] MEDS: Finasteride 5 MG Tablet PO (07:50)
[2023-07-10] MEDS: Furosemide 40 MG/4 ML Vial IV ×2 (07:50→18:51)
[2023-07-10] MEDS: Heparin Injection (Vial) 5,000 UNIT/ML VIAL 5000 UNIT SC ×2 (07:50→22:32)
[2023-07-10] MEDS: Insulin Glargine-YFGN 100 UNIT/ML Pen 18 UNIT SC (07:52)
[2023-07-10 08:17] VITALS: O2SAT 90
--- NOTE | 2023-07-10 09:00 | PN.HOSP_ITS ---
Reason for Visit Reason for Visit: Diagnoses Heart failure, unspecified (07/09/23) Bradycardia, unspecified (07/09/23) Hypoxemia (07/09/23) Weakness (07/09/23) Subjective Subjective No shortness of breath. Objective Data Objective Data Vital Signs: Vital Signs Temp Pulse Resp BP Pulse Ox O2 Del Method O2 Flow Rate 36.8 C 132 H 18 103/65 90 Nasal Cannula 2 07/10/23 07:28 07/10/23 07:28 07/10/23 07:28 07/10/23 07:28 07/10/23 08:17 07/10/23 08:17 07/10/23 08:17 Oxygen Flow Rate (L/min) 2 Oxygen Delivery Method Nasal Cannula Weight: 92.8 kg Body Mass Index (BMI) 27.7 Intake & Output: Intake and Output for Last 24 Hours 07/08/23 07/09/23 07/10/23 23:59 23:59 23:59 Intake Total 2540 / 2540 240 / 240 Output Total 2700 / 2700 1000 / 1000 Balance -160 / -160 -760 / -760 Lab / Micro Data 07/10/23 06:20 07/10/23 06:20 Labs: Laboratory Results - last 24 hr 07/09/23 03:56: Magnesium 2.7 H 07/09/23 12:12: POC Glucose 173 H 07/09/23 15:34: Rheumatoid Factor < 10.0 07/09/23 17:01: POC Glucose 172 H 07/09/23 22:09: POC Glucose 164 H 07/10/23 05:02: Urine Color Yellow, Urine Clarity Clear, Urine pH 6.0, Ur Specific [place] 1.015, Urine Protein 30 H, Urine Glucose (UA) Normal, Urine Ketones Negative, Urine Occult Blood 10 H, Urine Nitrite Negative, Urine Bilirubin Negative, Urine Urobilinogen Normal, Ur Leukocyte Esterase Negative, Urine RBC 0 SEEN, Urine WBC 0 SEEN, Ur Squamous Epith Cells 0 SEEN, Urine Bacteria 0 SEEN, Urine Mucus 0 SEEN 07/10/23 06:20: WBC 10.4, RBC 2.92 L, Hgb 9.0 L, Hct 27.5 L, MCV 94.2 H, MCH 30.8, MCHC 32.7, RDW Std Deviation 48.0 H, RDW Coeff of Cait 14.1, Plt Count 309, MPV 10.3, Sodium 139, Potassium 3.6, Chloride 102, Carbon Dioxide 30.0, Anion Gap 7, BUN 56 H, Creatinine 2.05 H, Estim Creat Clear Calc 29.97, Est GFR (MDRD) Af Amer 40 L, Est GFR (MDRD) Non-Af 33 L, BUN/Creatinine Ratio 27.3 H, Glucose 172 H, Calcium 8.5 07/10/23 06:41: POC Glucose 169 H Micro: Microbiology 07/10/23 05:02 Urine, Clean Catch Legionella Antigen - Final 07/10/23 05:02 Urine, Clean Catch Streptococcus pneumoniae Antigen (M - Final 07/09/23 04:00 Mucosa - Nasopharyngeal SARS-CoV-2, Influenza & RSV (PCR) - Final 07/09/23 04:18 Stool Stool Occult Blood (DAX) - Final Radiography Diagnostic Testing: Radiology Impression Chest CT 07/09/23 06:01 IMPRESSION: 1. Bilateral pleural effusions and bibasilar atelectasis more prominent on the right than left. 2. Mild cardiomegaly with moderate sized pericardial effusion. Electronically Signed: Pedro Pablo Gray MD at 9:19 EDT , Echocardiogram 07/09/23 11:52 Interpretation Summary The estimated ejection fraction is 70 %. Unable to assess diastolic dysfunction. Moderate pericardial effusion. Ordering Physician: Jesús Belcher Referring Physician: Jennifer Watt Performed By: Aleida Owens, RDCS, RVT Physical Exam Const alert and no apparent distress Constitutional Narrative: listless. afebrile. weak (required assistance sitting up in bed). Resp normal respiratory effort and no retractions Resp Narrative: coarse BS bilaterally. Cardio regular rate, regular rhythm, S1 normal heart sound and S2 normal heart sound GI normal to inspection, nondistended, normoactive bowel sounds, soft to palpation and non-tender Extremity Extremity Narrative: decreased edema. Neuro moves all extremities and no focal motor deficits Sensorium / Orientation: awake and alert Assessment & Plan Assessment/Plan (1) Hypoxemia: (2) Weakness: PLAN: Plan Acute HFpEF * EF 70%. Moderate pericardial effusion. * diuresis * CT shows pleural and pericardial effusion. * monitor labs closely given CKD pericardial effusion * no evidence of pulsus paradoxus 07/08 * diurese sinus pause * carvedilol held * pt was going into afib w RVR, then convert to NSR, but would have a pause. Cardiology started amiodarone to mitigate the afib with RVR. * cannot rule out need for PPM * continue telemetry monitoring Debility * acute on chronic * due to underlying poor performance status, advanced age and CHF * PT OT * hold gabapentin Elevated ESR/CPR * unclear etiology: infectious v autoimmune v other * RF negative. check KEVIN, RF. * check infectious work up: UA, UCx, BCx, pneumonia work up. Hold on abx at present. Orthostatic hypotension * volume overloaded * check AM cortisol Chronic medical conditions: ? Mood disorder: Stable. Continue home sertraline. ? Movement disorder: Stable. Continue home protocol. ? BPH with obstructive symptoms: Continue home finasteride. ? Neuropathy: Continue home gabapentin. ? History of CVA: Continue home clopidogrel, statin, Zetia ? Type 2 diabetes mellitus: Home regimen of insulin glargine 24 units daily with Humalog sliding scale insulin with meals. Will start Lantus 18 units in the morning and sliding scale insulin with meals as needed, adjust accordingly. DVT prophylaxis: Heparin subcu CODE STATUS: Full code, verified Expected disposition: Home with home health care versus SNF, 2 to 3 days Charges/Coding Visit Charges Inpatient E&M: 25119 Subs Hosp L2
[2023-07-10 11:28] VITALS: BP 123/66; PULSE 67; RESP 15; TEMP 36.6; O2SAT 94
[2023-07-10 11:37] LABS: Bedside Glucose 208 mg/dL (74-106)
[2023-07-10] MEDS: Nystatin Powder 15gm Bottle 1 APPLIC TOPICAL ×2 (12:33→22:33)
--- NOTE | 2023-07-10 15:02 | PN.CARD_ITS ---
Subjective Subjective Patient has some cough and shortness of breath. Denies any chest pain. No palpitations, dizziness or syncope Objective Data Telemetry reveals runs of A-fib and also short runs of nonsustained V. tach. Vital Signs: Vital Signs Temp Pulse Resp BP Pulse Ox O2 Del Method O2 Flow Rate 98 F 67 15 123/66 H 94 Nasal Cannula 2 07/10/23 11:28 07/10/23 11:28 07/10/23 11:28 07/10/23 11:28 07/10/23 11:07/10/23 11:07/10/23 12:24 Oxygen Flow Rate (L/min) 2 Oxygen Delivery Method Nasal Cannula Weight: 204 lb 9.423 oz Body Mass Index (BMI) 27.7 Intake & Output: Intake and Output for Last 24 Hours 07/08/23 07/09/23 07/10/23 23:59 23:59 23:59 Intake Total 2540 / 2540 760 / 760 Output Total 2700 / 2700 1450 / 1450 Balance -160 / -160 -690 / -690 Lab / Micro Data 07/11/23 06:41 07/11/23 06:41 Labs: Laboratory Results - last 24 hr 07/09/23 15:34: Rheumatoid Factor < 10.0 07/09/23 17:01: POC Glucose 172 H 07/09/23 22:09: POC Glucose 164 H 07/10/23 05:02: Urine Color Yellow, Urine Clarity Clear, Urine pH 6.0, Ur Specific [place] 1.015, Urine Protein 30 H, Urine Glucose (UA) Normal, Urine Ketones Negative, Urine Occult Blood 10 H, Urine Nitrite Negative, Urine Bilirubin Negative, Urine Urobilinogen Normal, Ur Leukocyte Esterase Negative, Urine RBC 0 SEEN, Urine WBC 0 SEEN, Ur Squamous Epith Cells 0 SEEN, Urine Bacteria 0 SEEN, Urine Mucus 0 SEEN 07/10/23 06:20: WBC 10.4, RBC 2.92 L, Hgb 9.0 L, Hct 27.5 L, MCV 94.2 H, MCH 30.8, MCHC 32.7, RDW Std Deviation 48.0 H, RDW Coeff of Cait 14.1, Plt Count 309, MPV 10.3, Sodium 139, Potassium 3.6, Chloride 102, Carbon Dioxide 30.0, Anion Gap 7, BUN 56 H, Creatinine 2.05 H, Estim Creat Clear Calc 29.97, Est GFR (MDRD) Af Amer 40 L, Est GFR (MDRD) Non-Af 33 L, BUN/Creatinine Ratio 27.3 H, Glucose 172 H, Calcium 8.5 07/10/23 06:41: POC Glucose 169 H 07/10/23 11:19: POC Glucose 208 H Micro: Microbiology 07/10/23 05:02 Urine, Clean Catch Legionella Antigen - Final 07/10/23 05:02 Urine, Clean Catch Streptococcus pneumoniae Antigen (M - Final Cardiology Labs/Tests 07/10/23 05:02: Urine Color Yellow, Urine Clarity Clear, Urine pH 6.0, Ur Specific [place] 1.015, Urine Protein 30 H, Urine Glucose (UA) Normal, Urine Ketones Negative, Urine Occult Blood 10 H, Urine Nitrite Negative, Urine Bilirubin Negative, Urine Urobilinogen Normal, Ur Leukocyte Esterase Negative, Urine RBC 0 SEEN, Urine WBC 0 SEEN 07/10/23 06:20: WBC 10.4, RBC 2.92 L, Hgb 9.0 L, Hct 27.5 L, MCV 94.2 H, MCH 30.8, MCHC 32.7, Plt Count 309, MPV 10.3, Sodium 139, Potassium 3.6, Chloride 102, Carbon Dioxide 30.0, Anion Gap 7, BUN 56 H, Creatinine 2.05 H, Est GFR (MDRD) Af Amer 40 L, Est GFR (MDRD) Non-Af 33 L, BUN/Creatinine Ratio 27.3 H, Glucose 172 H, Calcium 8.5 Rhythm: EKG: ECHO: Stress Test: Cardiac Cath: PCI: CT Surgery: Holter monitor: EPS: PPM: CXR: Chest CT Scan: Physical Exam Const alert and oriented x3 HEENT normocephalic Eyes no scleral icterus Resp normal respiratory effort Assessment & Plan Assessment/Plan (1) Bradycardia: PLAN: Patient's beta-wilmer has been on hold but he has been going into runs of nonsustained V. tach and A-fib. Will restart the beta-wilmer and see if he has significant bradycardia. If he does he may need a pacemaker. (2) CHF (congestive heart failure): QUALIFIERS: Heart failure chronicity: unspecified Heart failure type: unspecified Qualified Code(s): I50.9 - Heart failure, unspecified PLAN: Patient's creatinine has not gone up with Lasix. Okay to continue Lasix at this time. Charges/Coding Visit Charges Inpatient E&M: 67986 [facility] Hosp L1
[2023-07-10 17:15] LABS: Bedside Glucose 170 mg/dL (74-106)
[2023-07-10 18:44] VITALS: BP 115/60; PULSE 72; RESP 18; TEMP 36.6; O2SAT 92
[2023-07-10] MEDS: Magnesium Hydroxide 30 ML UDC PO (19:02)
[2023-07-10 22:10] VITALS: BP 139/54; PULSE 81; RESP 18; TEMP 37.7; O2SAT 92
[2023-07-10] MEDS: Sertraline 50 MG Tablet PO (22:32)
[2023-07-10] MEDS: Pramipexole Di-HCl 0.125 MG Tablet PO (22:32)
[2023-07-10] MEDS: Doxazosin 4 MG Tablet PO (22:32)
[2023-07-10] MEDS: Ezetimibe 10 MG Tablet PO (22:32)
[2023-07-10] MEDS: Carvedilol 6.25 MG Tablet PO (22:33)
[2023-07-11] VITALS (8 sets, daily range): BP systolic 123–144; BP diastolic 51–79; PULSE 63–72; RESP 14–18; TEMP 36.4–36.9; O2SAT 92–95; BMI 27.6
[2023-07-11 00:26] LABS: Bedside Glucose 211 mg/dL (74-106)
[2023-07-11] MEDS: Insulin Lispro 100 UNIT/ML INSULN.PEN SC ×4 (06:50→21:41)
[2023-07-11 06:54] LABS: Bedside Glucose 152 mg/dL (74-106)
[2023-07-11 07:04] LABS: Absolute Lymphocyte Count 1.33 X10^3/uL (0.83-4.51); Absolute Neutrophil Count 7.9 X10^3/uL (2.0-7.7); Basophil# 0.06 X10^3/uL; Basophil% 0.6 % (0-1); Eosinophil# 0.14 X10^3/uL; Eosinophils% 1.3 % (0-5); Hematocrit 25.6 % (40-54); Hemoglobin 8.3 g/dL (13.0-16.5); Lymphocyte # 1.33 X10^3/ul (0.83-4.51); Lymphocyte % 12.4 % (19-41); Mean Corp Hgb Conc 32.4 g/dL (32-36); Mean Corpuscular Hgb 30.2 pg (27.0-32.0); Mean Corpuscular Volume 93.1 fL (80-94); Monocyte# 1.27 X10^3/uL; Monocyte% 11.8 % (0-10); NRBC Flagged by Analyzer 0 % (0-5); Neutrophil # 7.89 X10^3/uL (2.7-7.7); Neutrophil % 73.4 % (47-70); Platelet Count 286 K/mm3 (150-450); RBC Distribution Width SD 46.8 fl (35.1-43.9); Red Blood Count 2.75 M/mm3 (4.6-6.2); White Blood Count 10.7 K/mm3 (4.4-11.0)
[2023-07-11 07:30] LABS: Anion Gap 6 (5-15); BUN 56 mg/dL (7-18); Calcium,Total 8.5 mg/dL (8.5-10.1); Chloride 102 mmol/L (98-107); Creatinine, Serum 1.93 mg/dL (0.70-1.30); EST Glomerular Filtration Rate 35 mL/min (>60); Est Glom Filt Rate - Afr Amer 43 mL/min (>60); Estimated Creatinine Clearance 31.83 ml/min; Glucose 151 mg/dL (74-106); Potassium 3.4 mmol/L (3.5-5.1); Sodium Level 139 mmol/L (136-145)
[2023-07-11] MEDS: Clopidogrel Bisulfate 75 MG Tablet PO (07:40)
[2023-07-11] MEDS: Finasteride 5 MG Tablet PO (07:40)
[2023-07-11] MEDS: Amiodarone 200 MG Tablet 400 MG PO ×2 (07:40→21:37)
[2023-07-11] MEDS: Insulin Glargine-YFGN 100 UNIT/ML Pen 18 UNIT SC (07:40)
[2023-07-11] MEDS: Furosemide 40 MG/4 ML Vial IV ×2 (07:41→18:06)
[2023-07-11] MEDS: Nystatin Powder 15gm Bottle 1 APPLIC TOPICAL ×2 (07:41→21:41)
[2023-07-11] MEDS: 0.9% Saline Lock 10 ML Syringe IV ×2 (07:42→18:07)
--- NOTE | 2023-07-11 10:11 | CASEMGMT ---
SW met with patient. Introduced self and role at [facility]. SW asked patient if he spoke with his about his discharge plan. Patient asked SW to talk with his . SW called patient's Abigail. Introduced self and role at [facility]. SW asked Abigail if she and patient spoke about short term rehab at discharge. Abigail said patient has been to [facility] TCU in the past and she would like patient to go there again. ALBARO let Abigail know SW will make the referral and let her know. ALBARO made referral to [facility] in TCU. Liza CAMARA
[2023-07-11] MEDS: Carvedilol 6.25 MG Tablet PO ×2 (10:24→21:39)
[2023-07-11] MEDS: Heparin Injection (Vial) 5,000 UNIT/ML VIAL 5000 UNIT SC ×2 (10:24→21:42)
[2023-07-11 12:01] LABS: Bedside Glucose 213 mg/dL (74-106)
--- NOTE | 2023-07-11 13:05 | PN_ITS ---
Subjective Subjective Patient seen and examined. He was resting calmly in bed. He had no active complaints. HE denied any dizziness, palpitations, chest pain, nausea, vomiting or any other symptoms. Review of systems is otherwise negative. Objective Data Objective Data Vital Signs: Vital Signs Temp Pulse Resp BP Pulse Ox O2 Del Method O2 Flow Rate 98.3 F 67 18 142/62 H 92 Nasal Cannula 2 07/11/23 10:23 07/11/23 10:23 07/11/23 10:23 07/11/23 10:23 07/11/23 10:23 07/11/23 10:23 07/11/23 10:23 Oxygen Flow Rate (L/min) 2 Oxygen Delivery Method Nasal Cannula Weight: 203 lb 4.259 oz Body Mass Index (BMI) 27.6 Intake & Output: Intake and Output for Last 24 Hours 07/09/23 07/10/23 07/11/23 23:59 23:59 23:59 Intake Total 2540 / 2540 1240 / 1590 590 / 590 Output Total 2700 / 2700 1950 / 2250 1050 / 1050 Balance -160 / -160 -710 / -660 -460 / -460 Lab / Micro Data 07/11/23 06:41 07/11/23 06:41 Labs: Laboratory Results - last 24 hr 07/10/23 06:20: Cortisol 31.90 H 07/10/23 16:55: POC Glucose 170 H 07/10/23 22:24: POC Glucose 211 H 07/11/23 06:36: POC Glucose 152 H 07/11/23 06:41: WBC 10.7, RBC 2.75 L, Hgb 8.3 L, Hct 25.6 L, MCV 93.1, MCH 30.2, MCHC 32.4, RDW Std Deviation 46.8 H, RDW Coeff of Cait 14.0, Plt Count 286, MPV 10.0, Immature Gran % (Auto) 0.500, Neut % (Auto) 73.4 H, Lymph % (Auto) 12.4 L, [place] % (Auto) 11.8 H, Eos % (Auto) 1.3, Baso % (Auto) 0.6, Absolute Neuts (auto) 7.9 H, Absolute Lymphs (auto) 1.33, Nucleated RBC % 0, Sodium 139, Potassium 3.4 L, Chloride 102, Carbon Dioxide 31.0, Anion Gap 6, BUN 56 H, Creatinine 1.93 H, Estim Creat Clear Calc 31.83, Est GFR (MDRD) Af Amer 43 L, Est GFR (MDRD) Non-Af 35 L, BUN/Creatinine Ratio 29.0 H, Glucose 151 H, Calcium 8.5 07/11/23 11:33: POC Glucose 213 H Micro: Microbiology 07/09/23 15:50 Blood Culture (Wb) - Anticubital Right Blood Culture - Preliminary No growth in 48 hours. 07/09/23 15:30 Blood Culture (Wb) - Anticubital Right Blood Culture - Preliminary No growth in 48 hours. 07/10/23 05:02 Urine, Clean Catch Legionella Antigen - Final 07/10/23 05:02 Urine, Clean Catch Streptococcus pneumoniae Antigen (M - Final 07/09/23 04:00 Mucosa - Nasopharyngeal SARS-CoV-2, Influenza & RSV (PCR) - Final 07/09/23 04:18 Stool Stool Occult Blood (DAX) - Final Physical Exam Const alert, oriented x3, no apparent distress and well nourished General Appearance: cooperative and well developed HEENT normocephalic, head/scalp atraumatic, moist oral mucous membranes and oropharynx normal Eyes PERRL and EOMs intact bilaterally Neck no lymphadenopathy, supple and no JVD Lymph Lymphatic: no lymphadenopathy noted and no lymphedema noted Resp normal respiratory effort, normal air movement and clear to auscultation bilaterally Cardio regular rate, regular rhythm, S1 normal heart sound, S2 normal heart sound and no murmurs GI normal to inspection, nondistended, normoactive bowel sounds, soft to palpation, non-tender and non-distended Extremity normal capillary refill, no clubbing, cyanosis or edema and no calf tenderness General Extremity: no tenderness to palpation of joints or extremities Skin General Skin Exam: no breakdown and turgor normal Neuro CN's II-XII intact bilaterally, no focal motor deficits, no sensory deficits noted and deep tendon reflexes 2+ bilaterally Motor Exam: strength 5/5 throughout and general weakness Psych thought process normal, cooperative and affect normal Appearance: appropriate Assessment & Plan Assessment/Plan (1) CHF (congestive heart failure): QUALIFIERS: Heart failure type: unspecified Heart failure chronicity: unspecified Qualified Code(s): I50.9 - Heart failure, unspecified PLAN: Plan #Acute HFpEF * 2D echo showed EF of 70% per echo, and also showed moderate pericardial effusion * CT chest showed no PE but showed pericardial and pleural effusion * cardiology on board * #Bradycardia * patient's heart rate has been vacillating between tachycardia and bradycardia. His beta-wilmer was held but he was going into runs of nonsustained ventricular tachycardia and A-fib. * cardiology on board. On amiodarone * 2D echo showed EF of 70%. * #Hypokalemia: potassium is 3.4. Will replace and trend. #Debillity: PT/OT on board. Fall precautions. #Elevated ESR and CPR * Etiology is unclear. Rheumatoid factor neative. Uine culure and blood cultures negative * will monitor. 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 #History of CVA: on clopidogrel, statin and zetia. #Type 2 diabetes mellitus: on lantus 24 units daily. ISS. Accuchecks ACHS. #CKD 3: Cr is 1.93, with his baseline being 2.05. Will monitor. DVT prophylaxis: heparin Charges/Coding Visit Charges Inpatient E&M: 14569 Subs Hosp L2
--- NOTE | 2023-07-11 14:37 | PN.CARD_ITS ---
Subjective Subjective Patient states that he is feeling better today. Denies any chest pain, palpitations, dizziness, syncope Objective Data Vital Signs: Vital Signs Temp Pulse Resp BP Pulse Ox O2 Del Method O2 Flow Rate 98.3 F 67 18 142/62 H 92 Nasal Cannula 2 07/11/23 10:23 07/11/23 10:23 07/11/23 10:23 07/11/23 10:23 07/11/23 10:23 07/11/23 10:23 07/11/23 13:38 Oxygen Flow Rate (L/min) 2 Oxygen Delivery Method Nasal Cannula Weight: 203 lb 4.259 oz Body Mass Index (BMI) 27.6 Intake & Output: Intake and Output for Last 24 Hours 07/09/23 07/10/23 07/11/23 23:59 23:59 23:59 Intake Total 2540 / 2540 1240 / 1590 590 / 590 Output Total 2700 / 2700 1950 / 2250 1050 / 1050 Balance -160 / -160 -710 / -660 -460 / -460 Lab / Micro Data 07/11/23 06:41 07/11/23 06:41 Labs: Laboratory Results - last 24 hr 07/10/23 06:20: Cortisol 31.90 H 07/10/23 16:55: POC Glucose 170 H 07/10/23 22:24: POC Glucose 211 H 07/11/23 06:36: POC Glucose 152 H 07/11/23 06:41: WBC 10.7, RBC 2.75 L, Hgb 8.3 L, Hct 25.6 L, MCV 93.1, MCH 30.2, MCHC 32.4, RDW Std Deviation 46.8 H, RDW Coeff of Cait 14.0, Plt Count 286, MPV 10.0, Immature Gran % (Auto) 0.500, Neut % (Auto) 73.4 H, Lymph % (Auto) 12.4 L, Kingfisher % (Auto) 11.8 H, Eos % (Auto) 1.3, Baso % (Auto) 0.6, Absolute Neuts (auto) 7.9 H, Absolute Lymphs (auto) 1.33, Nucleated RBC % 0, Sodium 139, Potassium 3.4 L, Chloride 102, Carbon Dioxide 31.0, Anion Gap 6, BUN 56 H, Creatinine 1.93 H, Estim Creat Clear Calc 31.83, Est GFR (MDRD) Af Amer 43 L, Est GFR (MDRD) Non-Af 35 L, BUN/Creatinine Ratio 29.0 H, Glucose 151 H, Calcium 8.5 07/11/23 11:33: POC Glucose 213 H Micro: Microbiology 07/09/23 15:50 Blood Culture (Wb) - Anticubital Right Blood Culture - Preliminary No growth in 48 hours. 07/09/23 15:30 Blood Culture (Wb) - Anticubital Right Blood Culture - Preliminary No growth in 48 hours. Cardiology Labs/Tests 07/11/23 06:41: WBC 10.7, RBC 2.75 L, Hgb 8.3 L, Hct 25.6 L, MCV 93.1, MCH 30.2, MCHC 32.4, Plt Count 286, MPV 10.0, Immature Gran % (Auto) 0.500, Neut % (Auto) 73.4 H, Lymph % (Auto) 12.4 L, Kingfisher % (Auto) 11.8 H, Eos % (Auto) 1.3, Baso % (Auto) 0.6, Absolute Neuts (auto) 7.9 H, Nucleated RBC % 0, Sodium 139, Potassium 3.4 L, Chloride 102, Carbon Dioxide 31.0, Anion Gap 6, BUN 56 H, Creatinine 1.93 H, Est GFR (MDRD) Af Amer 43 L, Est GFR (MDRD) Non-Af 35 L, BUN/Creatinine Ratio 29.0 H, Glucose 151 H, Calcium 8.5 Rhythm: EKG: ECHO: Stress Test: Cardiac Cath: PCI: CT Surgery: Holter monitor: EPS: PPM: CXR: Chest CT Scan: Physical Exam Const alert HEENT normocephalic Eyes no scleral icterus Resp normal respiratory effort Assessment & Plan Assessment/Plan (1) Bradycardia: PLAN: The bradycardia appears to have been mainly when he was converting from A- fib to sinus rhythm. So far he is tolerating current regimen well without significant episodes of bradycardia. No further significant runs of A-fib with RVR since last night. (2) CHF (congestive heart failure): QUALIFIERS: Heart failure type: unspecified Heart failure chronicity: unspecified Qualified Code(s): I50.9 - Heart failure, unspecified PLAN: Continue current medications. Charges/Coding Visit Charges Inpatient E&M: 79946 Subs Hosp L2
[2023-07-11] MEDS: Potassium Chloride Oral Tablet 20 MEQ 40 MEQ PO (14:44)
--- NOTE | 2023-07-11 15:26 | CASEMGMT ---
[facility] can take patient. SW notified patient and patient's . Plan: d/c to [facility] pending patient being medically ready and insurance approval. Liza CAMARA
[2023-07-11 16:45] LABS: Bedside Glucose 192 mg/dL (74-106)
[2023-07-11] MEDS: Polyethylene Glycol 3350 17 GM PACKET PO (21:36)
[2023-07-11] MEDS: Ezetimibe 10 MG Tablet PO (21:39)
[2023-07-11] MEDS: Sertraline 50 MG Tablet PO (21:39)
[2023-07-11] MEDS: Latanoprost 0.005% 1 Bottle 1 DRP EACH EYE (21:40)
[2023-07-11] MEDS: Pramipexole Di-HCl 0.125 MG Tablet PO (21:40)
[2023-07-11] MEDS: Doxazosin 4 MG Tablet PO (22:03)
[2023-07-11 23:35] LABS: Bedside Glucose 181 mg/dL (74-106)
[2023-07-12] VITALS (10 sets, daily range): BP systolic 134–153; BP diastolic 55–60; PULSE 53–73; RESP 16–18; TEMP 36–36.7; O2SAT 93–96; BMI 27.4
[2023-07-12] MEDS: Insulin Lispro 100 UNIT/ML INSULN.PEN SC ×4 (06:16→21:43)
[2023-07-12 06:50] LABS: Bedside Glucose 152 mg/dL (74-106)
[2023-07-12 08:09] LABS: Absolute Lymphocyte Count 1.29 X10^3/uL (0.83-4.51); Basophil# 0.05 X10^3/uL; Basophil% 0.5 % (0-1); Eosinophil# 0.35 X10^3/uL; Eosinophils% 3.6 % (0-5); Hematocrit 27.1 % (40-54); Hemoglobin 8.7 g/dL (13.0-16.5); Lymphocyte # 1.29 X10^3/ul (0.83-4.51); Lymphocyte % 13.2 % (19-41); Mean Corp Hgb Conc 32.1 g/dL (32-36); Mean Corpuscular Volume 93.4 fL (80-94); Mean Platelet Vol. 9.8 fl (6.2-12.0); Monocyte# 1.03 X10^3/uL; Monocyte% 10.6 % (0-10); NRBC Flagged by Analyzer 0 % (0-5); Neutrophil # 6.98 X10^3/uL (2.7-7.7); Neutrophil % 71.5 % (47-70); Platelet Count 311 K/mm3 (150-450); RBC Distribution Width CV 13.9 % (11.6-14.6); RBC Distribution Width SD 47.4 fl (35.1-43.9); White Blood Count 9.8 K/mm3 (4.4-11.0)
[2023-07-12 08:36] LABS: Anion Gap 3 (5-15); BUN 57 mg/dL (7-18); BUN/Creat Ratio 30.2 RATIO (10-20); Calcium,Total 8.9 mg/dL (8.5-10.1); Chloride 105 mmol/L (98-107); Creatinine, Serum 1.89 mg/dL (0.70-1.30); EST Glomerular Filtration Rate 36 mL/min (>60); Est Glom Filt Rate - Afr Amer 44 mL/min (>60); Glucose 140 mg/dL (74-106); Potassium 3.4 mmol/L (3.5-5.1); Sodium Level 142 mmol/L (136-145)
[2023-07-12] MEDS: Insulin Glargine-YFGN 100 UNIT/ML Pen 18 UNIT SC (08:43)
[2023-07-12] MEDS: Clopidogrel Bisulfate 75 MG Tablet PO (08:43)
[2023-07-12] MEDS: Amiodarone 200 MG Tablet 400 MG PO (08:43)
[2023-07-12] MEDS: Furosemide 40 MG/4 ML Vial IV (08:44)
[2023-07-12] MEDS: Carvedilol 6.25 MG Tablet PO ×2 (08:44→22:25)
[2023-07-12] MEDS: Heparin Injection (Vial) 5,000 UNIT/ML VIAL 5000 UNIT SC ×2 (08:44→21:45)
[2023-07-12] MEDS: 0.9% Saline Lock 10 ML Syringe IV (08:44)
[2023-07-12] MEDS: Finasteride 5 MG Tablet PO (08:45)
[2023-07-12] MEDS: Nystatin Powder 15gm Bottle 1 APPLIC TOPICAL ×2 (08:55→21:44)
[2023-07-12 11:09] LABS: ANTINUCLEAR ANTIBODIES DIRECT Negative (Negative)
--- NOTE | 2023-07-12 11:48 | CASEMGMT ---
Pre-cert has been started for patient to go to TCU. Liza Romero [employer]GER [employer]
--- NOTE | 2023-07-12 12:05 | PN_ITS ---
Subjective Subjective Patient seen and examined. He had no active complaints. He has not had any bradycardia overnight. Review of systems is otherwise negative. He has remained hemodynamically stable. Objective Data Objective Data Vital Signs: Vital Signs Temp Pulse Resp BP Pulse Ox O2 Del Method O2 Flow Rate 98.1 F 73 18 147/60 H 93 Nasal Cannula 2 07/12/23 08:40 07/12/23 08:40 07/12/23 08:40 07/12/23 08:40 07/12/23 08:40 07/12/23 08:40 07/12/23 08:30 Oxygen Flow Rate (L/min) 2 Oxygen Delivery Method Nasal Cannula Weight: 202 lb 6.15 oz Body Mass Index (BMI) 27.4 Intake & Output: Intake and Output for Last 24 Hours 07/10/23 07/11/23 07/12/23 23:59 23:59 23:59 Intake Total 1240 / 1590 590 / 590 240 / 240 Output Total 1950 / 2250 1500 / 1500 1450 / 1450 Balance -710 / -660 -910 / -910 -1210 / -1210 Lab / Micro Data 07/12/23 07:58 07/12/23 07:58 Labs: Laboratory Results - last 24 hr 07/09/23 15:34: KEVIN Screen Negative 07/11/23 16:20: POC Glucose 192 H 07/11/23 21:22: POC Glucose 181 H 07/12/23 06:15: POC Glucose 152 H 07/12/23 07:58: WBC 9.8, RBC 2.90 L, Hgb 8.7 L, Hct 27.1 L, MCV 93.4, MCH 30.0, MCHC 32.1, RDW Std Deviation 47.4 H, RDW Coeff of Cait 13.9, Plt Count 311, MPV 9.8, Immature Gran % (Auto) 0.600, Neut % (Auto) 71.5 H, Lymph % (Auto) 13.2 L, [place] % (Auto) 10.6 H, Eos % (Auto) 3.6, Baso % (Auto) 0.5, Absolute Neuts (auto) 7.0, Absolute Lymphs (auto) 1.29, Nucleated RBC % 0, Sodium 142, Potassium 3.4 L , Chloride 105, Carbon Dioxide 34.0 H, Anion Gap 3 L, BUN 57 H, Creatinine 1.89 H, Estim Creat Clear Calc 32.50, Est GFR (MDRD) Af Amer 44 L, Est GFR (MDRD) Non-Af 36 L, BUN/Creatinine Ratio 30.2 H, Glucose 140 H, Calcium 8.9 Micro: Microbiology 07/10/23 05:02 Urine, Clean Catch Urine Culture - Final Culture exhibits no growth. 07/10/23 05:02 Urine, Clean Catch Legionella Antigen - Final 07/10/23 05:02 Urine, Clean Catch Streptococcus pneumoniae Antigen (M - Final 07/09/23 15:50 Blood Culture (Wb) - Anticubital Right Blood Culture - Preliminary No growth in 48 hours. 07/09/23 15:30 Blood Culture (Wb) - Anticubital Right Blood Culture - Preliminary No growth in 48 hours. 07/09/23 04:00 Mucosa - Nasopharyngeal SARS-CoV-2, Influenza & RSV (PCR) - Final 07/09/23 04:18 Stool Stool Occult Blood (DAX) - Final Physical Exam Const alert, oriented x3, no apparent distress, average body habitus and well nourished Constitutional Narrative: listless. afebrile. weak (required assistance sitting up in bed). General Appearance: cooperative, comfortable and well developed HEENT normocephalic, head/scalp atraumatic, hearing grossly normal bilaterally, nasal mucous membranes and turbinates normal, moist oral mucous membranes and or opharynx normal Eyes PERRL, EOMs intact bilaterally and conjunctivae normal Neck full ROM, no lymphadenopathy, supple and no JVD Lymph Lymphatic: no lymphadenopathy noted and no lymphedema noted Chest inspection of chest normal Resp normal respiratory effort, normal air movement, no retractions and clear to auscultation bilaterally Resp Narrative: coarse BS bilaterally. Cardio regular rate, regular rhythm, S1 normal heart sound, S2 normal heart sound, no murmurs and peripheral pulses 2+ throughout GI normal to inspection, nondistended, normoactive bowel sounds, soft to palpation, non-tender and non-distended Back/Spine normal ROM Extremity normal to inspection, full ROM, normal capillary refill, no clubbing, cyanosis or edema, no calf tenderness and no pedal edema Extremity Narrative: decreased edema. General Extremity: no tenderness to palpation of joints or extremities Skin no rashes or lesions noted General Skin Exam: no breakdown and turgor normal Neuro CN's II-XII intact bilaterally, moves all extremities, no focal motor deficits, no sensory deficits noted and deep tendon reflexes 2+ bilaterally Sensorium / Orientation: awake and alert Speech: speech normal Motor Exam: strength 5/5 throughout and general weakness Psych mental status grossly normal, thought process normal, cooperative and affect normal Appearance: appropriate Assessment & Plan Assessment/Plan (1) CHF (congestive heart failure): QUALIFIERS: Heart failure type: unspecified Heart failure chronicity: unspecified Qualified Code(s): I50.9 - Heart failure, unspecified PLAN: Plan #Acute HFpEF * 2D echo showed EF of 70% per echo, and also showed moderate pericardial effusion * CT chest showed no PE but showed pericardial and pleural effusion * cardiology on board * #Bradycardia * patient's heart rate has been vacillating between tachycardia and bradycardia. His beta-wilmer was held but he was going into runs of nonsustained ventricular tachycardia and A-fib. * cardiology on board. On amiodarone * 2D echo showed EF of 70%. * #Hypokalemia: potassium is 3.4. Will replace and trend. #Debillity: PT/OT on board. Fall precautions. #Elevated ESR and CPR * Etiology is unclear. Rheumatoid factor neative. Uine culure and blood cultures negative * will monitor. 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 #History of CVA: on clopidogrel, statin and zetia. #Type 2 diabetes mellitus: on lantus 24 units daily. ISS. Accuchecks ACHS. #CKD 3: Cr is 1.93, with his baseline being 2.05. Will monitor. DVT prophylaxis: heparin
[2023-07-12 12:20] LABS: Bedside Glucose 204 mg/dL (74-106)
--- NOTE | 2023-07-12 14:43 | PN.CARD_ITS ---
Subjective Subjective Patient continues to improve and feel better Objective Data Vital Signs: Vital Signs Temp Pulse Resp BP Pulse Ox O2 Del Method O2 Flow Rate 98.1 F 53 L 16 134/59 H 95 Nasal Cannula 2 07/12/23 14:40 07/12/23 14:40 07/12/23 14:40 07/12/23 14:40 07/12/23 14:40 07/12/23 14:40 07/12/23 14:40 Oxygen Flow Rate (L/min) 2 Oxygen Delivery Method Nasal Cannula Weight: 202 lb 6.15 oz Body Mass Index (BMI) 27.4 Intake & Output: Intake and Output for Last 24 Hours 07/10/23 07/11/23 07/12/23 23:59 23:59 23:59 Intake Total 1240 / 1590 590 / 590 240 / 240 Output Total 1950 / 2250 1500 / 1500 1450 / 1450 Balance -710 / -660 -910 / -910 -1210 / -1210 Lab / Micro Data 07/12/23 07:58 07/12/23 07:58 Labs: Laboratory Results - last 24 hr 07/09/23 15:34: KEVIN Screen Negative 07/11/23 16:20: POC Glucose 192 H 07/11/23 21:22: POC Glucose 181 H 07/12/23 06:15: POC Glucose 152 H 07/12/23 07:58: WBC 9.8, RBC 2.90 L, Hgb 8.7 L, Hct 27.1 L, MCV 93.4, MCH 30.0, MCHC 32.1, RDW Std Deviation 47.4 H, RDW Coeff of Cait 13.9, Plt Count 311, MPV 9.8, Immature Gran % (Auto) 0.600, Neut % (Auto) 71.5 H, Lymph % (Auto) 13.2 L, Glynn % (Auto) 10.6 H, Eos % (Auto) 3.6, Baso % (Auto) 0.5, Absolute Neuts (auto) 7.0, Absolute Lymphs (auto) 1.29, Nucleated RBC % 0, Sodium 142, Potassium 3.4 L , Chloride 105, Carbon Dioxide 34.0 H, Anion Gap 3 L, BUN 57 H, Creatinine 1.89 H, Estim Creat Clear Calc 32.50, Est GFR (MDRD) Af Amer 44 L, Est GFR (MDRD) Non-Af 36 L, BUN/Creatinine Ratio 30.2 H, Glucose 140 H, Calcium 8.9 07/12/23 11:17: POC Glucose 204 H Micro: Microbiology 07/10/23 05:02 Urine, Clean Catch Urine Culture - Final Culture exhibits no growth. 07/10/23 05:02 Urine, Clean Catch Legionella Antigen - Final 07/10/23 05:02 Urine, Clean Catch Streptococcus pneumoniae Antigen (M - Final 07/09/23 15:50 Blood Culture (Wb) - Anticubital Right Blood Culture - Preliminary No growth in 48 hours. 07/09/23 15:30 Blood Culture (Wb) - Anticubital Right Blood Culture - Preliminary No growth in 48 hours. Cardiology Labs/Tests 07/12/23 07:58: WBC 9.8, RBC 2.90 L, Hgb 8.7 L, Hct 27.1 L, MCV 93.4, MCH 30.0, MCHC 32.1, Plt Count 311, MPV 9.8, Immature Gran % (Auto) 0.600, Neut % (Auto) 71.5 H, Lymph % (Auto) 13.2 L, Glynn % (Auto) 10.6 H, Eos % (Auto) 3.6, Baso % (Auto) 0.5, Absolute Neuts (auto) 7.0, Nucleated RBC % 0, Sodium 142, Potassium 3.4 L, Chloride 105, Carbon Dioxide 34.0 H, Anion Gap 3 L, BUN 57 H, Creatinine 1.89 H, Est GFR (MDRD) Af Amer 44 L, Est GFR (MDRD) Non-Af 36 L, BUN/Creatinine Ratio 30.2 H, Glucose 140 H, Calcium 8.9 Rhythm: EKG: ECHO: Stress Test: Cardiac Cath: PCI: CT Surgery: Holter monitor: EPS: PPM: CXR: Chest CT Scan: Physical Exam Const alert HEENT normocephalic Eyes no scleral icterus Assessment & Plan Assessment/Plan (1) Bradycardia: PLAN: The bradycardia appears to have been mainly when he was converting from A- fib to sinus rhythm. So far he is tolerating current regimen well without significant episodes of bradycardia. No further significant runs of A-fib with RVR. Will sign off at this time. 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 (2) CHF (congestive heart failure): QUALIFIERS: Heart failure type: unspecified Heart failure ch ronicity: unspecified Qualified Code(s): I50.9 - Heart failure, unspecified PLAN: Continue current medications. Charges/Coding Visit Charges Inpatient E&M: 76805 Subs Hosp L1
[2023-07-12] MEDS: Furosemide 40 MG Tablet PO (16:38)
[2023-07-12 16:57] LABS: Bedside Glucose 161 mg/dL (74-106)
[2023-07-12] MEDS: Pramipexole Di-HCl 0.125 MG Tablet PO (21:43)
[2023-07-12] MEDS: Ezetimibe 10 MG Tablet PO (21:43)
[2023-07-12] MEDS: Sertraline 50 MG Tablet PO (21:43)
[2023-07-12] MEDS: Doxazosin 4 MG Tablet PO (21:44)
[2023-07-12 23:40] LABS: Bedside Glucose 170 mg/dL (74-106)
[2023-07-13 03:20] VITALS: BP 150/62; PULSE 60; RESP 18; TEMP 36.2; O2SAT 95
[2023-07-13 04:45] VITALS: BMI 27.1
[2023-07-13 06:48] LABS: Bedside Glucose 123 mg/dL (74-106)
[2023-07-13 07:12] VITALS: O2SAT 96
[2023-07-13 08:09] VITALS: BP 144/58; PULSE 58; RESP 16; TEMP 36.4; O2SAT 96
[2023-07-13] MEDS: Insulin Glargine-YFGN 100 UNIT/ML Pen 18 UNIT SC (08:14)
[2023-07-13] MEDS: Heparin Injection (Vial) 5,000 UNIT/ML VIAL 5000 UNIT SC ×2 (08:15→20:42)
[2023-07-13] MEDS: Finasteride 5 MG Tablet PO (08:16)
[2023-07-13] MEDS: Clopidogrel Bisulfate 75 MG Tablet PO (08:16)
[2023-07-13] MEDS: Furosemide 40 MG Tablet PO ×2 (08:16→16:09)
--- NOTE | 2023-07-13 09:31 | PN_ITS ---
Subjective Subjective Patient seen and examined. He was lying comfortably in bed. He had no active complaints. Review of systems otherwise negative. He has remained hemodynamically stable. Objective Data Objective Data Vital Signs: Vital Signs Temp Pulse Resp BP Pulse Ox O2 Del Method O2 Flow Rate 97.5 F L 58 L 16 144/58 H 96 Nasal Cannula 2 07/13/23 08:09 07/13/23 08:09 07/13/23 08:09 07/13/23 08:09 07/13/23 08:09 07/13/23 08:15 07/13/23 08:15 Oxygen Flow Rate (L/min) 2 Oxygen Delivery Method Nasal Cannula Weight: 200 lb 6.403 oz Body Mass Index (BMI) 27.1 Intake & Output: Intake and Output for Last 24 Hours 07/11/23 07/12/23 07/13/23 23:59 23:59 23:59 Intake Total 590 / 590 480 / 480 Output Total 1500 / 1500 2250 / 2250 400 / 400 Balance -910 / -910 -1770 / -1770 -400 / -400 Lab / Micro Data 07/12/23 07:58 07/12/23 07:58 Labs: Laboratory Results - last 24 hr 07/09/23 15:34: KEVIN Screen Negative, SHERRIE-1 Antibody Not Reportable, SS-A/Ro IgG Antibody Not Reportable, SS-B/La IgG Antibody Not Reportable, Sm (Santiago) Antibody Not Reportable, MANAGER FLOOR Antibody Not Reportable, Scl-70 Scleroderma Ab Not Reportable, Double Strand DNA Ab Not Reportable, Centromere B Antibody Not Reportable 07/12/23 11:17: POC Glucose 204 H 07/12/23 16:32: POC Glucose 161 H 07/12/23 21:15: POC Glucose 170 H 07/13/23 06:26: POC Glucose 123 H Micro: Microbiology 07/10/23 05:02 Urine, Clean Catch Urine Culture - Final Culture exhibits no growth. 07/10/23 05:02 Urine, Clean Catch Legionella Antigen - Final 07/10/23 05:02 Urine, Clean Catch Streptococcus pneumoniae Antigen (M - Final 07/09/23 15:50 Blood Culture (Wb) - Anticubital Right Blood Culture - Preliminary No growth in 48 hours. 07/09/23 15:30 Blood Culture (Wb) - Anticubital Right Blood Culture - Preliminary No growth in 48 hours. 07/09/23 04:00 Mucosa - Nasopharyngeal SARS-CoV-2, Influenza & RSV (PCR) - Final 07/09/23 04:18 Stool Stool Occult Blood (DAX) - Final Physical Exam Const alert, oriented x3, no apparent distress, average body habitus and well nourished General Appearance: cooperative, comfortable and well developed HEENT normocephalic, head/scalp atraumatic, hearing grossly normal bilaterally, nasal mucous membranes and turbinates normal, moist oral mucous membranes and oropharynx normal Eyes PERRL, EOMs intact bilaterally and conjunctivae normal Neck full ROM, no lymphadenopathy, supple and no JVD Lymph Lymphatic: no lymphadenopathy noted and no lymphedema noted Chest inspection of chest normal Resp normal respiratory effort, normal air movement, no retractions and clear to auscultation bilaterally Resp Narrative: on 2L of oxygen by nasal canula Cardio regular rate, regular rhythm, S1 normal heart sound, S2 normal heart sound, no murmurs and peripheral pulses 2+ throughout GI normal to inspection, nondistended, normoactive bowel sounds, soft to palpation, non-tender and non-distended Back/Spine normal ROM Extremity normal to inspection, full ROM, normal capillary refill, no clubbing, cyanosis or edema, no calf tenderness and no pedal edema General Extremity: no tenderness to palpation of joints or extremities Skin no rashes or lesions noted General Skin Exam: no breakdown and turgor normal Neuro CN's II-XII intact bilaterally, moves all extremities, no focal motor deficits, no sensory deficits noted and deep tendon reflexes 2+ bilaterally Sensorium / Orientation: awake and alert Speech: speech normal Motor Exam: strength 5/5 throughout and general weakness Psych mental status grossly normal, thought process normal, cooperative and affect normal Appearance: appropriate Assessment & Plan Assessment/Plan (1) CHF (congestive heart failure): QUALIFIERS: Heart failure type: unspecified Heart failure chronicity: unspecified Qualified Code(s): I50.9 - Heart failure, unspecified PLAN: Plan #Acute HFpEF * 2D echo showed EF of 70% per echo, and also showed moderate pericardial effusion * CT chest showed no PE but showed pericardial and pleural effusion * cardiology on board * now on PO lasix * #Bradycardia * patient's heart rate has been vacillating between tachycardia and bradycardia. His beta-wilmer was held but he was going into runs of no nsustained ventricular tachycardia and A-fib. * cardiology on board. On amiodarone and carvedilol. * 2D echo showed EF of 70%. * #Hypokalemia: resolved with replacement. #Debillity: PT/OT on board. Fall precautions. #Elevated ESR and CPR * Etiology is unclear. Rheumatoid factor negative. Uine culture and blood cultures negative * will monitor. * follow up with PCP on outpatient basis. 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 #History of CVA: on clopidogrel, statin and zetia. #Type 2 diabetes mellitus: on lantus 24 units daily. ISS. Accuchecks ACHS. #CKD 3: Cr is down to 1.89 today, with his baseline being 2.05. Will monitor. DVT prophylaxis: heparin Disposition: awaiting placement,pending precert. Charges/Coding Visit Charges Inpatient E&M: 96128 Subs Hosp L2
[2023-07-13] MEDS: Carvedilol 6.25 MG Tablet PO ×2 (09:39→20:42)
[2023-07-13] MEDS: Potassium Chloride Oral Tablet 20 MEQ 40 MEQ PO (09:39)
[2023-07-13] MEDS: Amiodarone 200 MG Tablet PO (09:40)
[2023-07-13] MEDS: Insulin Lispro 100 UNIT/ML INSULN.PEN SC ×2 (10:57→16:08)
[2023-07-13] MEDS: Nystatin Powder 15gm Bottle 1 APPLIC TOPICAL ×2 (11:04→20:43)
[2023-07-13 11:46] LABS: Bedside Glucose 163 mg/dL (74-106)
[2023-07-13 14:15] VITALS: BP 128/52; PULSE 55; RESP 14; TEMP 36.6; O2SAT 96
[2023-07-13 16:29] LABS: Bedside Glucose 181 mg/dL (74-106)
[2023-07-13 20:38] VITALS: BP 151/62; PULSE 57; RESP 14; TEMP 36.5; O2SAT 96
[2023-07-13] MEDS: Ezetimibe 10 MG Tablet PO (20:41)
[2023-07-13] MEDS: Sertraline 50 MG Tablet PO (20:42)
[2023-07-13] MEDS: Doxazosin 4 MG Tablet PO (20:43)
[2023-07-13] MEDS: Pramipexole Di-HCl 0.125 MG Tablet PO (20:43)
[2023-07-13] MEDS: Latanoprost 0.005% 1 Bottle 1 DRP EACH EYE (20:44)
[2023-07-13 21:41] LABS: Bedside Glucose 149 mg/dL (74-106)
[2023-07-14 03:04] VITALS: BP 152/58; PULSE 61; RESP 16; TEMP 36.5; O2SAT 93
[2023-07-14 05:40] VITALS: BMI 27.1
[2023-07-14] MEDS: Insulin Lispro 100 UNIT/ML INSULN.PEN SC ×2 (06:38→11:04)
[2023-07-14 06:58] LABS: Bedside Glucose 158 mg/dL (74-106)
[2023-07-14 07:33] VITALS: O2SAT 96
[2023-07-14 08:55] VITALS: BP 149/55; PULSE 57; RESP 14; TEMP 36.2; O2SAT 96
[2023-07-14] MEDS: Heparin Injection (Vial) 5,000 UNIT/ML VIAL 5000 UNIT SC (08:57)
[2023-07-14] MEDS: Finasteride 5 MG Tablet PO (08:58)
[2023-07-14] MEDS: Carvedilol 6.25 MG Tablet PO (08:58)
[2023-07-14] MEDS: Furosemide 40 MG Tablet PO (08:58)
[2023-07-14] MEDS: Amiodarone 200 MG Tablet PO (08:58)
[2023-07-14] MEDS: Clopidogrel Bisulfate 75 MG Tablet PO (08:58)
[2023-07-14] MEDS: Insulin Glargine-YFGN 100 UNIT/ML Pen 18 UNIT SC (08:59)
[2023-07-14] MEDS: Nystatin Powder 15gm Bottle 1 APPLIC TOPICAL (08:59)
--- NOTE | 2023-07-14 09:53 | CASEMGMT ---
Patient was approved for TCU. SW notified physician. SW will notify patient and his . Liza CAMARA
--- NOTE | 2023-07-14 10:32 | CASEMGMT ---
SW went to notify patient, but he was resting. SW called patient's and notified her that patient was approved for TCU and should go today. SW also notified RN. Plan: d/c to [facility] under skilled level of care. Liza CAMARA
[2023-07-14 11:26] LABS: Bedside Glucose 244 mg/dL (74-106)
--- NOTE | 2023-07-14 12:25 | TREXTCAR_ITS ---
Diet Diet Order/Speech Therapy: 07/09/23 05:54 Diet: Consistent Carb - Calorie Controlled Food consistency:: Regular Liquid Consistency:: Regular/Thin Dietary Modifications:: Cardiac / Heart Healthy Sodium Restricted Fluid restriction:: 1500 mL How many daily calories?: 1800 calorie Routine Orders/Code Status Enema Type: Fleetz Enema Frequency: Daily PRN Suppository Type: Dulcolax 10mg Suppository Frequency: Daily PRN O2 Frequency: PRN Keep PO Greater than or Equal to (%): 90 Therapies Weight Bearing: Weight bearing as tolerated Physical Therapy: Eval and Treat Occupational Therapy: Eval and Treat Problem/Diagnosis (1) CHF (congestive heart failure): Status: Acute Code(s): I50.9 - Heart failure, unspecified Plan #Acute HFpEF * 2D echo showed EF of 70% per echo, and also showed moderate pericardial effusion * CT chest showed no PE but showed pericardial and pleural effusion * cardiology on board * now on PO lasix * #Bradycardia * patient's heart rate has been vacillating between tachycardia and bradycardia. His beta-wilmer was held but he was going into runs of nonsustained ventricular tachycardia and A-fib. * cardiology on board. On amiodarone and carvedilol. * 2D echo showed EF of 70%. * #Hypokalemia: resolved with replacement. #Debillity: PT/OT on board. Fall precautions. #Elevated ESR and CPR * Etiology is unclear. Rheumatoid factor negative. Uine culture and blood cultures negative * will monitor. * follow up with PCP on outpatient basis. 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 #History of CVA: on clopidogrel, statin and zetia. #Type 2 diabetes mellitus: on lantus 24 units daily. ISS. Accuchecks ACHS. #CKD 3: Cr is down to 1.89 today, with his baseline being 2.05. Will monitor. DVT prophylaxis: heparin Disposition: awaiting placement,pending precert. Allergies/Procedures Done in Hospital Allergies meloxicam [From Mobic] Allergy (Intermediate, Verified 06/16/23 12:51) itching pravastatin [From Pravachol] Adverse Reaction (Mild, Verified 06/16/23 12:51) myalgia cholestyramine Adverse Reaction (Verified 06/16/23 12:51) hypoglycemia Procedures: 2-D Echocardiogram Type of Care/Length of Stay Estimated LOS: Convalescent Care Less Than 30 days Type of Care Needed: Skilled Rehab Potential: Fair Prognosis: Fair Additional Orders/Day of Discharge Day of Discharge: 07/14/23 Dietary and Speech Recommendations Dietitian Recommendations/Changes: Will adjust diet order to 1800 calorie/consistent carbohydrate; cardiac/sodium-restriction with 1500mL/day fluid restriction. ONS if PO fails at meals, will defer for now. Discharge Plan Admission Admit Date/Time: 07/09/23 05:04 Primary Reason for Your Visit: acute HFpEF Attending Provider: Jessica Meyer Primary Care Provider: Jennifer Watt Consulting Providers: Juliane Lui; Shankar Nevarez; Jesús Belcher Instructions Patient Instructions: Coping with Heart Failure Discharge Orders/Prescriptions Prescriptions: New amiodarone 200 mg Tablet 200 mg PO DAILY Qty: 30 2RF insulin glargine-yfgn 100 unit/mL (3 mL) Insulin Pen 18 unit subcut BREAKFAST Qty: 15 2RF doxazosin 4 mg Tablet 4 mg PO QHS Qty: 30 2RF Continued multivitamin,gu-esfh-jkcuqkar tablet tablet 1 tab PO QDAY latanoprost 0.005 % drops 1 drp EACH EYE .COMPLEX Patient Comments: M-W-F Rx Instructions: 1 drp into Each EYE mwf; @hs finasteride 5 mg tablet 5 mg PO DAILY (DME) Handicap Placard See Rx Instructions .Route .MEDSUPPLY Qty: 1 0RF Rx Instructions: Length of time: 5 years clopidogrel [Plavix] 75 mg tablet 75 mg PO DAILY Qty: 90 3RF Hold Instructions: Resume on 01/26/23. (DME) pen needle, diabetic [BD Sanaz 2nd Gen Pen Needle] 32 gauge x 5/32 needle See Rx Instructions .ROUTE .MEDSUPPLY Qty: 50 2RF Rx Instructions: use once daily to adminster insulin as directed. furosemide [Lasix] 40 mg tablet 40 mg PO DAILY Qty: 90 3RF carvedilol 6.25 mg tablet 6.25 mg PO BID Qty: 60 11RF Rx Instructions: must administer with a meal/food pramipexole 0.125 mg tablet 0.125 mg PO QHS Qty: 90 3RF insulin lispro [Humalog KwikPen Insulin] 100 unit/mL insulin pen 1 unit subcut TIDAC PRN (Reason: SLIDING SCALE) Qty: 15 3RF sertraline 50 mg tablet 50 mg PO QHS Qty: 90 3RF ezetimibe [Zetia] 10 mg tablet 10 mg PO QHS Qty: 90 3RF Rx Instructions: take at bedtime gabapentin 100 mg capsule 100 mg PO BID Qty: 180 3RF gabapentin 300 mg capsule 300 mg PO 2100 Qty: 90 3RF Discontinued hydralazine 100 mg tablet 100 mg PO ONCE Qty: 90 3RF Rx Instructions: 100mg in AM, 75mg in afternoon, 75mg in evening insulin glargine [Basaglar KwikPen U-100 Insulin] 100 unit/mL (3 mL) insulin pen 24 unit subcut DAILY amlodipine 10 mg tablet 10 mg PO DAILY Qty: 90 3RF doxazosin 8 mg tablet 8 mg PO QHS Qty: 90 3RF losartan 25 mg tablet 25 mg PO DAILY Qty: 90 3RF hydralazine 25 mg tablet 75 mg PO .COMPLEX Qty: 540 1RF Rx Instructions: 75 mg orally 75mg in afternoon and evening orally.; Referrals / Follow Up: [place] MD [Med Staff - Active Staff] - Within 1 Week Jennifer Watt MD [Primary Care Provider] - Within 1 Week Disposition Disposition (needs filled in before D/C Order can be placed): [facility] (1) CHF (congestive heart failure) Qualifiers: Heart failure type: unspecified Heart failure chronicity: unspecified Qualified Code(s): I50.9 - Heart failure, unspecified
--- NOTE | 2023-07-14 12:26 | PHA.DC.MR.R ---
[facility] has performed discharge medication reconciliation for this patient upon transfer to TCU. The patient's discharge medication list was reviewed for discrepancies and discrepancies were resolved. Medications at Discharge Home Medications multivitamin,ne-xgnp-ffcmidwa (Complete Multivitamin tablet) 1 tab PO QDAY supplement 03/03/17 Handicap Placard #1 ea 02/12/21 latanoprost 0.005 % eye drops 1 drp EACH EYE .COMPLEX eyes 02/24/22 clopidogrel 75 mg tablet (Plavix) 75 mg PO DAILY blood thinner #90 tabs 06/07/22 pen needle, diabetic 32 gauge x /32 (BD Sanaz 2nd Gen Pen Needle) #50 ea 06/17/22 furosemide 40 mg tablet (Lasix) 40 mg PO DAILY water pill #90 tabs 11/26/22 carvedilol 6.25 mg tablet 6.25 mg PO BID heart #60 tabs 12/03/22 pramipexole 0.125 mg tablet 0.125 mg PO QHS parkinsons #90 tabs 12/24/22 insulin lispro 100 unit/mL subcutaneous pen (Humalog KwikPen (U-100) Insulin) 1 unit (0.01 mL) subcut TIDAC PRN SLIDING SCALE #15 mL 01/10/23 sertraline 50 mg tablet 50 mg PO QHS mood #90 tabs 02/23/23 ezetimibe 10 mg tablet (Zetia) 10 mg PO QHS cholesterol #90 tabs 05/04/23 gabapentin 100 mg capsule 100 mg PO BID pain #180 caps 05/04/23 gabapentin 300 mg capsule 300 mg PO 2100 pain #90 caps 05/04/23 finasteride 5 mg tablet 5 mg PO DAILY 07/09/23 amiodarone 200 mg tablet 200 mg PO DAILY #30 tabs 07/14/23 doxazosin 4 mg tablet 4 mg PO QHS #30 tabs 07/14/23 insulin glargine-yfgn 100 unit/mL (3 mL) subcutaneous pen 18 unit (0.18 mL) subcut BREAKFAST #15 mL 07/14/23
--- NOTE | 2023-07-14 12:27 | DS.PCM_ITS ---
Providers Date of Admission: 07/09/23 Date of Discharge: 07/14/23 Primary Care Physician: Dr. Jennifer Watt MD Consultations 07/09/23 06:25 Consult: Cardiology Routine Consulting Provider: Juliane Lui Reason for Consult: sinus angus w/ concern for pauses, concern for new afib EMERGENT Consult: No MD Notified: Yes Date Notified: 07/09/23 Time Notified: 06:45 Method of Notification: Text Reason For Visit: DEBILITY, HYPOXIA WITH MILD CHF EXACERBATION Diagnosis Discharge Diagnosis (1) CHF (congestive heart failure): Status: Acute Code(s): I50.9 - Heart failure, unspecified Qualifiers: Heart failure chronicity: unspecified Heart failure type: unspecified Qualified Code(s): I50.9 - Heart failure, unspecified Plan #Acute HFpEF * 2D echo showed EF of 70% per echo, and also showed moderate pericardial e ffusion * CT chest showed no PE but showed pericardial and pleural effusion * cardiology on board * now on PO lasix * #Bradycardia * patient's heart rate has been vacillating between tachycardia and robson ycardia. His beta-wilmer was held but he was going into runs of nonsustained ventricular tachycardia and A-fib. * cardiology on board. On amiodarone and carvedilol. * 2D echo showed EF of 70%. * #Hypokalemia: resolved with replacement. #Debillity: PT/OT on board. Fall precautions. #Elevated ESR and CPR * Etiology is unclear. Rheumatoid factor negative. Uine culture and blood cultures negative * will monitor. * follow up with PCP on outpatient basis. 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 #History of CVA: on clopidogrel, statin and zetia. #Type 2 diabetes mellitus: on lantus 24 units daily. ISS. Accuchecks ACHS. #CKD 3: Cr is down to 1.89 today, with his baseline being 2.05. Will monitor. DVT prophylaxis: heparin Disposition: awaiting placement,pending precert. Medications at Discharge Home Medications multivitamin,ev-odyt-ljecjcep (Complete Multivitamin tablet) 1 tab PO QDAY supplement 03/03/17 Handicap Placard #1 ea 02/12/21 latanoprost 0.005 % eye drops 1 drp EACH EYE .COMPLEX eyes 02/24/22 clopidogrel 75 mg tablet (Plavix) 75 mg PO DAILY blood thinner #90 tabs 06/07/22 pen needle, diabetic 32 gauge x 5/32 (BD Sanaz 2nd Gen Pen Needle) #50 ea 06/17/22 furosemide 40 mg tablet (Lasix) 40 mg PO DAILY water pill #90 tabs 11/26/22 carvedilol 6.25 mg tablet 6.25 mg PO BID heart #60 tabs 12/03/22 pramipexole 0.125 mg tablet 0.125 mg PO QHS parkinsons #90 tabs 12/24/22 insulin lispro 100 unit/mL subcutaneous pen (Humalog KwikPen (U-100) Insulin) 1 unit (0.01 mL) subcut TIDAC PRN SLIDING SCALE #15 mL 01/10/23 sertraline 50 mg tablet 50 mg PO QHS mood #90 tabs 02/23/23 ezetimibe 10 mg tablet (Zetia) 10 mg PO QHS cholesterol #90 tabs 05/04/23 gabapentin 100 mg capsule 100 mg PO BID pain #180 caps 05/04/23 gabapentin 300 mg capsule 300 mg PO 2100 pain #90 caps 05/04/23 finasteride 5 mg tablet 5 mg PO DAILY Urinary Retention 07/09/23 amiodarone 200 mg tablet 200 mg PO DAILY Heart #30 tabs 07/14/23 doxazosin 4 mg tablet 4 mg PO QHS Urinary Retention #30 tabs 07/14/23 insulin glargine-yfgn 100 unit/mL (3 mL) subcutaneous pen 18 unit (0.18 mL) s ubcut BREAKFAST Diabetes #15 mL 07/14/23 Hospital Course Operations None Procedures 2-D Echocardiogram Summary of Care Provided Minutes Spent on Discharge: 55 Hospital Course: Patient is an 82-year-old male with a past medical history as outlined was admitted through the ED on 07/09/2023 with a complaint of worsening weakness. He had been feeling weak for at least the past week and this had worsened. He had gotten up to use the bathroom in the early hours of the day of presentation coronary and stand without assistance to urinate so his called the EMS. When he came into the ED he was found to be hypoxic, saturating at 87% on room air. Chest x-ray showed diffuse opacifications of both lung bedoya with small bilateral pleural effusions suggesting pulmonary vascular congestion versus diffuse inflammatory process. BNP was 289. Creatinine was 2.40 which is around his baseline. EKG showed normal sinus rhythm though his heart rate did drop to the 30s per telemetry and he was asymptomatic at that time. Rhythm strip showed bradycardia. He was admitted to be managed for debility with weakness as well as hypoxia and sinus bradycardia. Patient was also noted to be anemic with hemoglobin being 8.7 down from 9.9 a few days prior to admission. He was also managed for acute on chronic exacerbation of heart failure with preserved ejection fraction. CT of the chest showed pleural and pericardial effusion. Carvedilol was held. Cardiology was consulted. He had 2D echo which showed EF of 70% with no regional wall motion abnormalities, no aortic stenosis and a moderate pericardial effusion with no echographic evidence of cardiac tamponade. He was diuresed with IV Lasix and subsequently switched to p.o. Lasix. Patient's heart rate had vacillated between bradycardia and tachycardia. His beta-wilmer was held but he went into nonsustained ventricular tachycardia and A-fib. Etiology therefore placed him back on his carvedilol and amiodarone as well. His other blood pressure medications just amlodipine and hydralazine were discontinued. Patient's heart rate stabilized and he felt much better. He rem ained stable and [facility]. 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 Of note, due to patient's blood sugars, his Lantus was decreased from 24 units daily to 18 units daily. Patient seen and examined prior to discharge. He had no active complaints. Review of systems otherwise negative. Labs and vitals reviewed. Home medication reviewed and reconciled. Physical Exam Const alert, oriented x3, no apparent distress, average body habitus and well nourished General Appearance: cooperative, comfortable and well developed Orientation / Consciousness: awake HEENT normocephalic, head/scalp atraumatic, hearing grossly normal bilaterally, nasal mucous membranes and turbinates normal, moist oral mucous membranes and oropharynx normal Mouth: oral and palatal mucosa normal Eyes PERRL, EOMs intact bilaterally and conjunctivae normal Neck full ROM, no lymphadenopathy, supple and no JVD Lymph Lymphatic: no lymphadenopathy noted and no lymphedema noted Resp normal respiratory effort, normal air movement, no retractions and clear to auscultation bilaterally Resp Narrative: on 2L of oxygen by nasal canula Cardio regular rate, regular rhythm, S1 normal heart sound, S2 normal heart sound, no murmurs and peripheral pulses 2+ throughout GI normal to inspection, nondistended, normoactive bowel sounds, soft to palpation, non-tender and non-distended Back/Spine normal ROM Extremity normal to inspection, full ROM, normal capillary refill, no clubbing, cyanosis or edema, no calf tenderness and no pedal edema General Extremity: no tenderness to palpation of joints or extremities Skin no rashes or lesions noted General Skin Exam: no breakdown and turgor normal Neuro CN's II-XII intact bilaterally, moves all extremities, no focal motor deficits, no sensory deficits noted and deep tendon reflexes 2+ bilaterally Sensorium / Orientation: awake and alert Speech: speech normal Motor Exam: strength 5/5 throughout and general weakness Psych mental status grossly normal, thought process normal, cooperative and affect normal Appearance: appropriate Weight / BMI Weight Weight: 199 lb 15.348 oz Body Mass Index (BMI) 27.1 ABG / Lab / Microbiology Data 07/12/23 07:58 07/12/23 07:58 Laboratory: Laboratory Results - last 24 hr 07/13/23 16:05: POC Glucose 181 H 07/13/23 20:52: POC Glucose 149 H 07/14/23 06:37: POC Glucose 158 H 07/14/23 11:03: POC Glucose 244 H Microbiology: Microbiology 07/10/23 05:02 Urine, Clean Catch Urine Culture - Final Culture exhibits no growth. 07/10/23 05:02 Urine, Clean Catch Legionella Antigen - Final 07/10/23 05:02 Urine, Clean Catch Streptococcus pneumoniae Antigen (M - Final 07/09/23 15:50 Blood Culture (Wb) - Anticubital Right Blood Culture - Preliminary No growth in 48 hours. 07/09/23 15:30 Blood Culture (Wb) - Anticubital Right Blood Culture - Preliminary No growth in 48 hours. 07/09/23 04:00 Mucosa - Nasopharyngeal SARS-CoV-2, Influenza & RSV (PCR) - Final 07/09/23 04:18 Stool Stool Occult Blood (DAX) - Final D/C Instructions Discharge Diet: Low fat / Low cholesterol Meaningful Use Info Meaningful Use Meaningful Use Diagnoses (Choose all that apply): CHF CHF ALVIN/ARB ordered at discharge?: No Reason ALVIN/ARB not ordered?: Worsening renal disease Documented LVEF (%): 70 Ischemic Stroke Statin Dosing Therapy Reference: STATIN DOSE THERAPY REFERENCE: * Patients > 75 years receive moderate or high dose statin therapy. * Patients 75 years or YOUNGER should receive HIGH intensity statin dose unless contraindicated. You will be required to document reason for non-treatment if statin daily dose does not meet guidelines. HIGH DOSE STATIN THERAPY DAILY Atorvastatin > than or = to 40 mg Rosuvastatin > than or = to 20 mg Amlodipine + Atorvastatin > than or = to 2.5/40 mg Ezetimibe + Simvastatin 10/80 mg Simvastatin 80mg Discharge Plan Admission Admit Date/Time: 07/09/23 05:04 Primary Reason for Your Visit: acute HFpEF Attending Provider: Jessica Meyer Primary Care Provider: Jennifer Watt Consulting Providers: Juliane Lui; Shankar Nevarez; Jesús Belcher Instructions Patient Instructions: Coping with Heart Failure Discharge Orders/Prescriptions Prescriptions: New amiodarone 200 mg Tablet 200 mg PO DAILY Qty: 30 2RF insulin glargine-yfgn 100 unit/mL (3 mL) Insulin Pen 18 unit subcut BREAKFAST Qty: 15 2RF doxazosin 4 mg Tablet 4 mg PO QHS Qty: 30 2RF Continued multivitamin,mg-obva-faqmwmbr tablet tablet 1 tab PO QDAY latanoprost 0.005 % drops 1 drp EACH EYE .COMPLEX Patient Comments: M-W-F Rx Instructions: 1 drp into Each EYE mwf; @hs finasteride 5 mg tablet 5 mg PO DAILY (DME) Handicap Placard See Rx Instructions .Route .MEDSUPPLY Qty: 1 0RF Rx Instructions: Length of time: 5 years clopidogrel [Plavix] 75 mg tablet 75 mg PO DAILY Qty: 90 3RF Hold Instructions: Resume on 01/26/23. (DME) pen needle, diabetic [BD Sanaz 2nd Gen Pen Needle] 32 gauge x needle See Rx Instructions .ROUTE .MEDSUPPLY Qty: 50 2RF Rx Instructions: use once daily to adminster insulin as directed. furosemide [Lasix] 40 mg tablet 40 mg PO DAILY Qty: 90 3RF carvedilol 6.25 mg tablet 6.25 mg PO BID Qty: 60 11RF Rx Instructions: must administer with a meal/food pramipexole 0.125 mg tablet 0.125 mg PO QHS Qty: 90 3RF insulin lispro [Humalog KwikPen Insulin] 100 unit/mL insulin pen 1 unit subcut TIDAC PRN (Reason: SLIDING SCALE) Qty: 15 3RF sertraline 50 mg tablet 50 mg PO QHS Qty: 90 3RF ezetimibe [Zetia] 10 mg tablet 10 mg PO QHS Qty: 90 3RF Rx Instructions: take at bedtime gabapentin 100 mg capsule 100 mg PO BID Qty: 180 3RF gabapentin 300 mg capsule 300 mg PO 2100 Qty: 90 3RF Discontinued hydralazine 100 mg tablet 100 mg PO ONCE Qty: 90 3RF Rx Instructions: 100mg in AM, 75mg in afternoon, 75mg in evening insulin glargine [Basaglar KwikPen U-100 Insulin] 100 unit/mL (3 mL) insulin pen 24 unit subcut DAILY amlodipine 10 mg tablet 10 mg PO DAILY Qty: 90 3RF doxazosin 8 mg tablet 8 mg PO QHS Qty: 90 3RF losartan 25 mg tablet 25 mg PO DAILY Qty: 90 3RF hydralazine 25 mg tablet 75 mg PO .COMPLEX Qty: 540 1RF Rx Instructions: 75 mg orally 75mg in afternoon and evening orally.; Referrals / Follow Up: [place] MD [Med Staff - Active Staff] - Within 1 Week Jennifer Watt MD [Primary Care Provider] - Within 1 Week Disposition Disposition (needs filled in before D/C Order can be placed): [facility] Facility Charges/Coding Visit Charges Inpatient E&M: 10285 Disch Hosp >30min
--- NOTE | 2023-07-14 13:35 | CASEMGMT ---
SW went to patient's room and he was awake. Patient was aware he was going to TCU today. SW let patient know SW was going to let him know earlier, but he was sleeping and SW did not want to wake him. SW explained SW did call and notify his . Patient thanked ALBARO. Plan: d/c to [facility] TCU under skilled level of care. Liza CAMARA
== END 2023-07-14 14:25 | disposition skilled nursing facility (03) | DRG 291 ==
LOC: ED 05:15 → PCU 05:20
PROVIDERS: Admitting Provider Hospitalist; Emergency Provider Emergency Medicine; PCP Internal Medicine; Visit Provider Student in an Organized Health Care Education/Training Program
DX: I13.0 Hypertensive heart and chronic kidney disease with heart failure and stage 1 through stage 4 chronic kidney disease, or unspecified chronic kidney disease (principal); I50.33 Acute on chronic diastolic (congestive) heart failure; I31.39 Other pericardial effusion (noninflammatory); I47.20 Ventricular tachycardia, unspecified; I69.354 Hemiplegia and hemiparesis following cerebral infarction affecting left non-dominant side; G25.9 Extrapyramidal and movement disorder, unspecified; N13.8 Other obstructive and reflux uropathy; D63.1 Anemia in chronic kidney disease; I48.0 Paroxysmal atrial fibrillation; E11.22 Type 2 diabetes mellitus with diabetic chronic kidney disease; N18.30 Chronic kidney disease, stage 3 unspecified; E11.51 Type 2 diabetes mellitus with diabetic peripheral angiopathy without gangrene; Z79.4 Long term (current) use of insulin; E11.42 Type 2 diabetes mellitus with diabetic polyneuropathy; F39 Unspecified mood [affective] disorder; D50.9 Iron deficiency anemia, unspecified; R00.1 Bradycardia, unspecified; E78.5 Hyperlipidemia, unspecified; I25.10 Atherosclerotic heart disease of native coronary artery without angina pectoris; I95.1 Orthostatic hypotension; R54 Age-related physical debility; E87.6 Hypokalemia; G47.33 Obstructive sleep apnea (adult) (pediatric); R09.02 Hypoxemia; R70.0 Elevated erythrocyte sedimentation rate; R79.82 Elevated C-reactive protein (CRP); N40.1 Benign prostatic hyperplasia with lower urinary tract symptoms; Z79.02 Long term (current) use of antithrombotics/antiplatelets; Z79.899 Other long term (current) drug therapy
CPT/HCPCS: 36415; 71045; 71046; 71250; 80048; 81001; 82274; 82533; 82746; 82962; 83540; 83550; 83735; 83880; 84443; 84484; 85025; 85027; 85652; 86038; 86140; 86225; 86235; 86431; 87040; 87086; 87449; 87631; 93005; 93306; 94668; 97110; 97162; 97165; 97530; 97535; 99252; 99285; J7030; A4216; G0463; J1940

== ENCOUNTER 2023-07-14 14:30 | Inpatient (IN) | payer MEDICARE, SELFPAY ==
[2023-07-14 15:10] VITALS: BMI 26.0
[2023-07-14 15:12] VITALS: BP 153/67; PULSE 60; RESP 14; TEMP 36.2; O2SAT 94
--- NOTE | 2023-07-14 15:42 | HP.PCM_ITS ---
HPI - General General Date of Admission: 07/14/23 Date of Service: 07/14/23 Chief Complaint: Here for rehabilitation. HPI Narrative 07/09/2023 SHAISTA CLOUD, is a 82 Male who presents to [facility] ED SOB. SOB, generalized weakness for 1 week. Unable to stand, squad called, able to urinate. Walks with assistance of gait belt. EKG okay, short runs of bradycardia, heart rate 30's. Pulsox 87% on RA, Hemoglobin 8.7, drop of 4 grams. 07/09/2023 Admit [facility]. PT/OT debility. CT chest for hypoxia. Hemoglobin 8.7, Stool guaiac negative. Hold beta wilmer for bradycardia. 07/09/2023 Weak, SOB for [address] chest pleural/pericardial effusion. IV Lasix for acute HFpEF. Beta wilmer held for sinus pause, may need PPM. Hold gabapentin, PT/OT for debility. 07/09/2023 Echo EF 70%. Moderate pericardial effusion. 07/10/2023 Continue diuresis for acute HFpEF. Cardiology recommended amiodarone for atrial fibrillation with RVR. May need PPM for sinus bradycardia. Infection workup for elevated ESR, CRP. 07/11/2023 Resting calmly in bed. Tachycardia, bradycardia, runs of NSVT, atrial fibrillation. Replace K 3.4. Blood cultures negative, urine cultures negative for elevated ESR, CRP. 07/11/2023 Feeling better. Bradycardia when converting from atrial fibrillation to sinus rhythm. 07/12/2023 No bradycardia overnight. Change IV Lasix to PO Lasix. Improving, feels better. 07/13/2023 Stable. Creatinine 1.89. 07/14/2023 Admit to TCU with debility, here for rehabilitation, strengthening, prior to discharge home with . [facility] Medical History (Updated 07/14/23 @ 15:[address] Johnathan Huffman MD) Absent pedal pulses Acute left-sided muscle weakness BiPAP (biphasic positive airway pressure) dependence BPH (benign prostatic hyperplasia) Cardiology follow-up encounter Chronic anemia Congestive heart failure Coronary artery disease Depression Depression Dietary restriction Dysphagia Essential hypertension Facial droop due to acute stroke Fatigue History of CVA (cerebrovascular accident) (12/2020) History of echocardiogram History of edema Hyperlipidemia Hypertension Incontinence Insulin dependent diabetes mellitus Limb weakness Low iron Non-smoker Normocytic normochromic anemia Obstructive Sleep Apnea-Hypopnea Syndrome Osteoarthritis Peripheral vascular occlusive disease Pneumonia Prostate disease Proteinuria due to type 2 diabetes mellitus Rash Recurrent inguinal hernia of right side without obstruction or gangrene Restless legs Right pontine CVA Right renal artery stenosis Skin lesion of face Stroke/cerebrovascular accident Type 2 diabetes mellitus Unsteadiness Ventricular tachycardia seen on lunchroom monitor (02/20/21) Walker as ambulation aid Wears glasses Home Medications multivitamin,cx-trtw-rryrpsyt (Complete Multivitamin tablet) 1 tab PO QDAY supplement 03/03/17 [History Last Taken 01/11/23] Handicap Placard #1 ea 02/12/21 [Rx Last Taken Unknown] latanoprost 0.005 % eye drops 1 drp EACH EYE .COMPLEX eyes 02/24/22 [History Last Taken 01/10/23] clopidogrel 75 mg tablet (Plavix) 75 mg PO DAILY blood thinner #90 tabs 06/07/22 [Rx Last Taken 01/03/23] pen needle, diabetic 32 gauge x 5/32 (BD Sanaz 2nd Gen Pen Needle) #50 ea 06/17/22 [Rx Last Taken Unknown] furosemide 40 mg tablet (Lasix) 40 mg PO DAILY water pill #90 tabs 11/26/22 [Rx Last Taken 01/11/23] carvedilol 6.25 mg tablet 6.25 mg PO BID heart #60 tabs 12/03/22 [Rx Last Taken 01/12/23] pramipexole 0.125 mg tablet 0.125 mg PO QHS parkinsons #90 tabs 12/24/22 [Rx Last Taken 01/11/23] insulin lispro 100 unit/mL subcutaneous pen (Humalog KwikPen (U-100) Insulin) 1 unit (0.01 mL) subcut TIDAC PRN SLIDING SCALE #15 mL 01/10/23 [Rx Last Taken Unknown] sertraline 50 mg tablet 50 mg PO QHS mood #90 tabs 02/23/23 [Rx Last Taken Unknown] ezetimibe 10 mg tablet (Zetia) 10 mg PO QHS cholesterol #90 tabs 05/04/23 [Rx Last Taken Unknown] gabapentin 100 mg capsule 100 mg PO BID pain #180 caps 05/04/23 [Rx Last Taken Unknown] gabapentin 300 mg capsule 300 mg PO 2100 pain #90 caps 05/04/23 [Rx Last Taken Unknown] finasteride 5 mg tablet 5 mg PO DAILY Urinary Retention 07/09/23 [History Last Taken Unknown] amiodarone 200 mg tablet 200 mg PO DAILY Heart #30 tabs 07/14/23 [Rx Last Taken Unknown] doxazosin 4 mg tablet 4 mg PO QHS Urinary Retention #30 tabs 07/14/23 [Rx Last Taken Unknown] insulin glargine-yfgn 100 unit/mL (3 mL) subcutaneous pen 18 unit (0.18 mL) subcut BREAKFAST Diabetes #15 mL 07/14/23 [Rx Last Taken Unknown] Allergy/AdvReac Type Severity Reaction Status Date / Time meloxicam [From Mobic] Allergy Intermediate itching Verified 06/16/23 12:51 pravastatin [From Pravachol] AdvReac Mild myalgia Verified 06/16/23 12:51 cholestyramine AdvReac hypoglycemi Verified 06/16/23 12:51 a Family History Mother Hypertension Cancer Father Heart disease Diabetes Surgical History H/O transurethral resection of prostate (01/12/23) History of cataract surgery History of herniorrhaphy History of hydrocelectomy History of lumbar laminectomy History of prostate surgery History of stent insertion of renal artery (08/05/21) Hx of cystoscopy Hx of total knee arthroplasty Social History household members: spouse and other details: Abigail is his 's name housing: house number of children: 2 current occupational status: retired and other details: worked for [employer] prior to retiring leisure activities: other Smoking Status: Never smoker Electronic Cigarette Use: not used second hand exposure: No alcohol intake: former substance use type: does not use what type of physical activity do you participate in: walking frequency: 1-2 times per week inés/pentecostal: None seatbelt use: always ROS Constitutional Constitutional: Reports fatigue and weakness; Denies chills, fever(s) or weight gain ENT HEENT: Denies headache(s), nasal congestion or nasal discharge Cardiovascular Cardiovascular: Denies chest pain or palpitations Respiratory/Chest Respiratory/Chest: Reports shortness of breath with exertion; Denies cough or excessive phlegm production Gastrointestinal Gastrointestinal: Denies abdominal pain, nausea or vomiting Genitourinary Genitourinary: Denies dysuria Musculoskeletal Musculoskeletal: Denies joint pain or joint swelling Integumentary Integumentary: Denies rash or wounds Neurologic Neurologic: Denies focal weakness, numbness or tingling Psychiatric Psychiatric: Denies anxiety, auditory hallucinations, depression, homicidal ideation or suicidal ideation Vital Signs Vital Signs Vital Signs: 07/14/23 15:12 07/14/23 15:15 Temperature 97.1 F L Temperature Source Temporal Pulse Rate 60 Pulse Rhythm Regular Pulse Strength Normal (2+) Respiratory Rate 14 Respiratory Effort Normal Non-Labored Respiratory Depth Normal Respiratory Pattern Normal Blood Pressure 153/67 H Blood Pressure Mean 95 Blood Pressure Source Monitor Blood Pressure Position Sitting Blood Pressure Location Right Arm Pulse Ox 94 Oxygen Delivery Method Room Air Nasal Cannula Oxygen Flow Rate (L/min) 2 Weight Weight: 87.09 kg Body Mass Index (BMI) 26.0 Assessment & Plan Assessment/Plan (1) Debility: (2) Acute respiratory failure with hypoxia: (3) Acute heart failure with preserved ejection fraction (HFpEF): (4) Pericardial effusion: (5) Pleural effusion: (6) Tachy-angus syndrome: (7) Essential hypertension: (8) Stroke with left hemiparesis: (9) BPH (benign prostatic hyperplasia): (10) Hyperlipidemia: (11) Neuropathic pain: (12) Diabetes mellitus: (13) Glaucoma: (14) Restless leg syndrome: (15) Depression: (16) Atrial fibrillation with rapid ventricular response: PLAN: Plan 82 year old male with below past medical history hospitalized for acute respiratory failure with hypoxia 2/2 acute HFpEF, complicated by tachy-angus syndrome, atrial fibrillatin with RVR, infection ruled out, admitted to TCU with debility, here for rehabilitation, strengthening, prior to discharge home with . * Debility - PT/OT. * Pain - Tylenol 1000mg q6 prn pain (1-10). * Bowel - senna/colace 1 tablet bid prn, Dulcolax 10mg pr x 1 prn. * Adult immunization - Administer pneumonia vaccine, covid vaccine, flu vaccine as appropriate. * DVT prophylaxis - Hold, anemia. * Atrial fibrillation - Coreg 6.25mg bidcm, Amiodarone 200mg daily. * Stroke/Renal atery stent - Plavix 75mg daily. * BPH - Finasteride 5mg daily, Doxazosin 4mg qhs. * Hyperlipidemia - Zetia 10mg qhs. * HFpEF - Coreg 6.25mg bid, Furosemide 40mg daily. * Diabetic polyneuropathy - Gabapentin 100mg bid, 300mg qhs. * Diabetes Mellitus II - Glargine 18 units qhs. * Glaucoma - Latanoprost 1gtt ou mwf. * Nutrition - MVI 1 tablet daily. * Restless leg syndrome - Mirapex 0.125mg qhs. 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
[2023-07-14 16:58] LABS: Bedside Glucose 120 mg/dL (74-106)
[2023-07-14] MEDS: Gabapentin 300 MG Capsule PO (20:43)
[2023-07-14] MEDS: Doxazosin 4 MG Tablet PO (20:51)
[2023-07-14] MEDS: Carvedilol 6.25 MG Tablet PO (20:52)
[2023-07-14] MEDS: Pramipexole Di-HCl 0.125 MG Tablet PO (20:52)
[2023-07-14] MEDS: Ezetimibe 10 MG Tablet PO (20:53)
[2023-07-14] MEDS: Sertraline 50 MG Tablet PO (20:53)
[2023-07-14 21:24] VITALS: BP 160/74; PULSE 62
[2023-07-14 21:54] LABS: Bedside Glucose 114 mg/dL (74-106)
[2023-07-15] VITALS (7 sets, daily range): BP systolic 134–147; BP diastolic 50–70; PULSE 55–64; RESP 16; TEMP 36.2; O2SAT 91–93; BMI 25.5
[2023-07-15 06:02] LABS: Absolute Lymphocyte Count 1.27 X10^3/uL (0.83-4.51); Absolute Neutrophil Count 6.5 X10^3/uL (2.0-7.7); Basophil# 0.08 X10^3/uL; Basophil% 0.9 % (0-1); Eosinophil# 0.45 X10^3/uL; Eosinophils% 4.9 % (0-5); Hematocrit 27.4 % (40-54); Lymphocyte # 1.27 X10^3/ul (0.83-4.51); Lymphocyte % 13.7 % (19-41); Mean Corp Hgb Conc 32.8 g/dL (32-36); Mean Corpuscular Hgb 31.1 pg (27.0-32.0); Mean Corpuscular Volume 94.8 fL (80-94); Mean Platelet Vol. 10.3 fl (6.2-12.0); Monocyte# 0.95 X10^3/uL; Monocyte% 10.2 % (0-10); NRBC Flagged by Analyzer 0 % (0-5); Neutrophil # 6.47 X10^3/uL (2.7-7.7); Neutrophil % 69.8 % (47-70); Platelet Count 320 K/mm3 (150-450); RBC Distribution Width CV 13.8 % (11.6-14.6); RBC Distribution Width SD 47.4 fl (35.1-43.9); Red Blood Count 2.89 M/mm3 (4.6-6.2); White Blood Count 9.3 K/mm3 (4.4-11.0)
[2023-07-15 06:29] LABS: Bedside Glucose 136 mg/dL (74-106)
[2023-07-15 06:29] LABS: Anion Gap 5 (5-15); BUN 37 mg/dL (7-18); Calcium,Total 8.7 mg/dL (8.5-10.1); Chloride 106 mmol/L (98-107); Creatinine, Serum 1.61 mg/dL (0.70-1.30); EST Glomerular Filtration Rate 44 mL/min (>60); Est Glom Filt Rate - Afr Amer 53 mL/min (>60); Estimated Creatinine Clearance 38.16 ml/min; Glucose 127 mg/dL (74-106); Potassium 3.4 mmol/L (3.5-5.1); Sodium Level 143 mmol/L (136-145)
[2023-07-15] MEDS: Insulin Glargine-YFGN 100 UNIT/ML Pen 18 UNIT SC (09:07)
[2023-07-15] MEDS: Potassium Chloride Oral Tablet 20 MEQ PO (09:10)
[2023-07-15] MEDS: Carvedilol 6.25 MG Tablet PO ×2 (09:10→17:25)
[2023-07-15] MEDS: Multivitamins,Ther W-Minerals Tablet 1 TABLET PO (09:11)
[2023-07-15] MEDS: Amiodarone 200 MG Tablet PO (09:12)
[2023-07-15] MEDS: Furosemide 40 MG Tablet PO (09:12)
[2023-07-15] MEDS: Clopidogrel Bisulfate 75 MG Tablet PO (09:12)
[2023-07-15] MEDS: Finasteride 5 MG Tablet PO (09:12)
[2023-07-15] MEDS: Gabapentin 100 MG Capsule PO ×2 (09:16→17:27)
[2023-07-15] MEDS: Tuberculin,Purif.prot.deriv. 50 TU/ML Vial 0.1 ML ID (09:19)
--- NOTE | 2023-07-15 09:36 | NURSING ---
Train Starter Note; Activity Asset: Aicha Singh has returned to [facility] for more therapy and remains independent in his choice of daily activities. He has a smartphone and tablet he will use to read, talk w/family and do word puzzles and surf the net on. He will watch tv, visit with family and friends and welcomes visits from the warehouse pricing and inventory clerk and therapy dog when available. Staff will remind him of weekly activities and respect his right to say no.
--- NOTE | 2023-07-15 10:14 | PHA.CONS_ITS ---
Documented by User: Neftali Howard 07/15/23 10:37 TCU RX Drug Regimen Review Subjective/Objective Subjective/Objective: Subjective: TCU admission note. 82 year old male with below past medical history hospitalized for acute respiratory failure with hypoxia 2/2 acute HFpEF, complicated by tachy-angus syndrome, atrial fibrillation with RVR, infection ruled out, admitted to TCU with debility, here for rehabilitation, strengthening, prior to discharge home with . Objective: Allergies meloxicam [From Mobic] Allergy (Intermediate, Verified 06/16/23 12:51) itching pravastatin [From Pravachol] Adverse Reaction (Mild, Verified 06/16/23 12:51) myalgia cholestyramine Adverse Reaction (Verified 06/16/23 12:51) hypoglycemia Current Medications Generic Name Dose Route Start Last Admin Trade Name Freq PRN Reason Stop Dose Admin Acetaminophen 1,000 mg 07/14/23 16:04 Acetaminophen 500 Mg Tablet PO Q6H PRN PRN Pain Score 1-10 Amiodarone HCl 200 mg 07/15/23 10:00 07/15/23 09:12 Amiodarone 200 Mg Tablet PO 200 mg DAILY LJ Administration Bisacodyl 10 mg 07/14/23 15:04 Bisacodyl 10 Mg Suppository RC X1 PRN Constipation Carvedilol 6.25 mg 07/14/23 22:00 07/15/23 09:10 Carvedilol 6.25 Mg Tablet PO 6.25 mg BIDCM LJ Administration Protocol Clopidogrel Bisulfate 75 mg 07/15/23 10:00 07/15/23 09:12 Clopidogrel Bisulfate 75 Mg Tablet PO 75 mg DAILY LJ Administration Doxazosin Mesylate 4 mg 07/14/23 22:00 07/14/23 20:51 Doxazosin 4 Mg Tablet PO 4 mg QHS LJ Administration Protocol Ezetimibe 10 mg 07/14/23 22:00 07/14/23 20:53 Ezetimibe 10 Mg Tablet PO 10 mg QHS LJ Administration Finasteride 5 mg 07/15/23 10:00 07/15/23 09:12 Finasteride 5 Mg Tablet PO 5 mg DAILY LJ Administration Furosemide 40 mg 07/15/23 10:00 07/15/23 09:12 Furosemide 40 Mg Tablet PO 40 mg DAILY LJ Administration Protocol Gabapentin 300 mg 07/14/23 21:00 07/14/23 20:43 Gabapentin 300 Mg Capsule PO 300 mg 2100 LJ Administration Gabapentin 100 mg 07/15/23 08:00 07/15/23 09:16 Gabapentin 100 Mg Capsule PO 100 mg 0800,1700 [facility] Administration Insulin Glargine 18 unit 07/15/23 08:00 07/15/23 09:07 Insulin Glargine-Yfgn 100 Unit/Ml Pen SC 18 unit BREAKFAST [facility] Administration Latanoprost 1 drp 07/15/23 22:00 Latanoprost 0.005% 1 Bottle EACH EYE MoWeFr@HS [facility] Multivitamins/Minerals 1 tablet 07/15/23 08:00 07/15/23 09:11 Multivitamins,Ther W-Minerals Tablet PO 1 tablet BREAKFAST [facility] Administration Potassium Chloride 20 meq 07/15/23 08:00 07/15/23 09:10 Potassium Chloride Oral Tablet 20 Meq PO 20 meq DAILYCM [facility] Administration Pramipexole Dihydrochloride 0.125 mg 07/14/23 22:00 07/14/23 20:52 Pramipexole Di-Hcl 0.125 Mg Tablet PO 0.125 mg QHS [facility] Administration Senna/Docusate Sodium 1 tablet 07/14/23 16:04 Senna/Docusate Sodium 1 Tablet PO BID PRN Constipation Sertraline HCl 50 mg 07/14/23 22:00 07/14/23 20:53 Sertraline 50 Mg Tablet PO 50 mg QHS [facility] Administration Sodium Chloride 10 - 40 ml 07/14/23 14:56 0.9% Saline Lock 10 Ml Syringe IV UD PRN SALINE FLUSH Tuberculin PPD 0.1 ml 07/22/23 10:00 Tuberculin,Purif.Prot.Deriv. 50 Tu/Ml Vial ID 07/22/23 10:01 X1 ONE Problem List (Updated 07/14/23 @ 15:[address] Johnathan Huffman MD) Atrial fibrillation with rapid ventricular response (Acute) BPH (benign prostatic hyperplasia) (Acute) Stroke with left hemiparesis (Acute) Tachy-angus syndrome (Acute) Pleural effusion (Acute) Pericardial effusion (Acute) Acute heart failure with preserved ejection fraction (HFpEF) (Acute) Hyperlipidemia (Chronic) Essential hypertension (Chronic) Neuropathic pain (Acute) Depression (Acute) Restless leg syndrome (Acute) Glaucoma (Acute) Diabetes mellitus (Acute) Debility (Acute) Vital Signs Temp Pulse Resp BP Pulse Ox O2 Del Method O2 Flow Rate 97.1 F L 58 L 14 143/51 H 93 Nasal Cannula 2 07/14/23 15:12 07/15/23 09:23 07/14/23 15:12 07/15/23 09:23 07/15/23 08:38 07/14/23 15:15 07/15/23 08:38 Oxygen Flow Rate (L/min) 2 Oxygen Delivery Method Nasal Cannula Weight: 85.502 kg Body Mass Index (BMI) 25.5 Sodium 143 mmol/L (136-145) 07/15/23 05:25 Potassium 3.4 mmol/L (3.5-5.1) L 07/15/23 05:25 Chloride 106 mmol/L (98-107) 07/15/23 05:25 Carbon Dioxide 32.0 mmol/L (21.0-32.0) 07/15/23 05:25 Anion Gap 5 (5-15) 07/15/23 05:25 BUN 37 mg/dL (7-18) H 07/15/23 05:25 Creatinine 1.61 mg/dL (0.70-1.30) H 07/15/23 05:25 Est GFR (MDRD) Af Amer 53 mL/min (>60) L 07/15/23 05:25 Est GFR (MDRD) Non-Af 44 mL/min (>60) L 07/15/23 05:25 BUN/Creatinine Ratio 23.0 RATIO (10-20) H 07/15/23 05:25 Glucose 127 mg/dL (74-106) H 07/15/23 05:25 Assessment/Plan: 1. Pain: acetaminophen 1000 mg PO Q6H PRN pain. The patient has not required any PRN acetaminophen so far this admission. Please continue to monitor for pain levels, PRN medication usage, and LFTs (AST/ALT = 15/17 U/L on 02/10/23). 2. Bowel: senna/docusate 1 tablet PO BID PRN constipation, bisacodyl 10 mg UT x 1 PRN constipation. The patient has not required any PRN senna/docusate or bisacodyl so far this admission and the patient's last bowel movement was 07/14/23. Please continue to monitor for bowel movements, PRN medication usage, constipation and diarrhea. 3. Atrial fibrillation/HFpEF: carvedilol 6.25 mg PO BID with meals, amiodarone 200 mg PO daily, furosemide 40 mg PO daily. Please continue to monitor for s/s of heart failure exacerbation, lower extremity edema, for shortness of breath, for s/s of stroke, blood pressures (recent range = 123-160/51-74 mmHg), heart rates (recent range = 53-72 beats/min), for fatigue, renal function (serum creatinine = 1.61 mg/dL with creatinine clearance ~ 38 mL/min on 07/15/23), sodium levels (Na = 143 mmol/L on 07/15/23), potassium levels (K = 3.4 mmol/L on 07/15/23), calcium levels (Ca = 8.7 mg/dL on 07/15/23), LFTs (AST/ALT = 15/17 U/L on 02/10/23), thyroid hormone levels (TSH = 0.88 uIU/mL on 07/06/23), and lung function. The patient's blood pressures have remained elevated over the past several days and his heart rates have been on the lower side. Please consider adding hydralazine 10 mg PO TID and titrate to goal to help control the patient's blood pressures. 4. Renal artery stent/Stroke: clopidogrel 75 mg PO daily. Please continue to monitor for s/s of stroke, for s/s fo bleeding/excessive bruising, hemoglobin levels (Hgb = 9.0 g/dL on 07/15/23), and platelet count (plt = 320 K/mm3 on 07/15/23). 5. BPH: finasteride 5 mg PO daily, doxazosin 4 mg PO QHS. Please continue to monitor for urinary retention, urinary stream, blood pressures (recent range = 123-160/51-74 mmHg), and for s/s of orthostasis. 6.Hyperlipidemia: ezetimibe 10 mg PO QHS. Please continue to monitor lipid levels (cholesterol levels = 139 mg/dL with LDL = 67 mg/dL on 01/06/23), LFTs (AST/ALT = 15/17 U/L on 02/10/23), and for myalgias. 7.Diabetes Mellitus II: insulin glargine 18 units daily with breakfast. Please continue to monitor blood glucose levels (recent range = 114-244 mg/dL), and hemoglobin A1C levels (A1C = 6.3% on 02/10/23). 8. Diabetic polyneuropathy: gabapentin 100 mg PO BID, gabapentin 300 mg PO QHS. Please continue to monitor for diabetic polyneuropathy pain, renal function (serum creatinine = 1.61 mg/dL with creatinine clearance ~ 38 mL/min on 07/15/23), dizziness/drowsiness, syncope, and lower extremity edema. 9. Glaucoma: latanoprost 1 drop in both eyes on Mondays, Wednesdays, and Fridays. Please continue to monitor for eye health, glaucoma symptoms, and watery eyes. 10. Nutrition: multivitamin 1 tablet PO daily. Please continue to monitor overall nutritional health. 11. Restless leg syndrome: pramipexole 0.125 mg PO QHS. Please continue to monitor for restless legs, for s/s of orthostasis, for drowsiness, constipation, dizziness, and for edema. 12. Hypokalemia: potassium chloride 20 mEq PO daily with a meal. Please continue to monitor potassium levels (K = 3.4 mmol/L on 07/15/23), and for GI distress with potassium administration. Assessment/Plan for indications treated with psychotropic medications: 1. Depression: sertraline 50 mg PO QHS. Please see provider note regarding stable chronic therapy GDR not recommended. Please continue to monitor for depression, for SI, for s/s of serotonin syndrome, for N/V/D, and sodium levels (Na = 143 mmol/L on 07/15/23) Medical chart and medication regimen reviewed. The following medication irregularities or issues were identified: 1. Atrial fibrillation/HFpEF: carvedilol 6.25 mg PO BID with meals, amiodarone 200 mg PO daily, furosemide 40 mg PO daily. The patient's blood pressures have remained elevated over the past several days and his heart rates have been on the lower side. Please consider adding hydralazine 10 mg PO TID and titrate to goal to help control the patient's blood pressures. Date Date of Note:: 07/15/23 Documented by User: Dr. Johnathan Huffman MD 07/15/23 13:34 TCU RX Drug Regimen Review Provider Comments Provider responsibility Provider Comments to Recommendations by Pharmacy: Agree
[2023-07-15 11:23] LABS: Bedside Glucose 240 mg/dL (74-106)
[2023-07-15] MEDS: hydrALAZINE 10 MG Tablet PO ×2 (14:56→21:13)
[2023-07-15 16:51] LABS: Bedside Glucose 202 mg/dL (74-106)
[2023-07-15] MEDS: Gabapentin 300 MG Capsule PO (21:11)
[2023-07-15] MEDS: Doxazosin 4 MG Tablet PO (21:13)
[2023-07-15] MEDS: Ezetimibe 10 MG Tablet PO (21:13)
[2023-07-15] MEDS: Pramipexole Di-HCl 0.125 MG Tablet PO (21:13)
[2023-07-15] MEDS: Latanoprost 0.005% 1 Bottle 1 DRP EACH EYE (21:13)
[2023-07-15] MEDS: Sertraline 50 MG Tablet PO (21:14)
[2023-07-15 21:40] LABS: Bedside Glucose 222 mg/dL (74-106)
[2023-07-16] VITALS (9 sets, daily range): BP systolic 143–161; BP diastolic 55–67; PULSE 60–90; RESP 16; TEMP 36.4; O2SAT 91–96; BMI 25.8
[2023-07-16] MEDS: hydrALAZINE 10 MG Tablet PO ×3 (06:16→21:37)
[2023-07-16 07:06] LABS: Bedside Glucose 149 mg/dL (74-106)
[2023-07-16] MEDS: Insulin Glargine-YFGN 100 UNIT/ML Pen 18 UNIT SC (09:35)
[2023-07-16] MEDS: Finasteride 5 MG Tablet PO (09:36)
[2023-07-16] MEDS: Multivitamins,Ther W-Minerals Tablet 1 TABLET PO (09:36)
[2023-07-16] MEDS: Potassium Chloride Oral Tablet 20 MEQ PO (09:36)
[2023-07-16] MEDS: Furosemide 40 MG Tablet PO (09:36)
[2023-07-16] MEDS: Amiodarone 200 MG Tablet PO (09:36)
[2023-07-16] MEDS: Carvedilol 6.25 MG Tablet PO ×2 (09:36→17:31)
[2023-07-16] MEDS: Clopidogrel Bisulfate 75 MG Tablet PO (09:36)
[2023-07-16] MEDS: Gabapentin 100 MG Capsule PO ×2 (09:38→17:30)
[2023-07-16 12:55] LABS: Bedside Glucose 170 mg/dL (74-106)
[2023-07-16 17:12] LABS: Bedside Glucose 236 mg/dL (74-106)
[2023-07-16] MEDS: Gabapentin 300 MG Capsule PO (21:33)
[2023-07-16] MEDS: Sertraline 50 MG Tablet PO (21:34)
[2023-07-16] MEDS: Ezetimibe 10 MG Tablet PO (21:34)
[2023-07-16] MEDS: Pramipexole Di-HCl 0.125 MG Tablet PO (21:36)
[2023-07-16] MEDS: Doxazosin 4 MG Tablet PO (21:36)
[2023-07-16 21:50] LABS: Bedside Glucose 202 mg/dL (74-106)
[2023-07-17] VITALS (8 sets, daily range): BP systolic 151–165; BP diastolic 56–68; PULSE 57–61; RESP 16–18; TEMP 36.8; O2SAT 92; BMI 25.9
[2023-07-17 05:17] LABS: Anion Gap 5 (5-15); BUN 34 mg/dL (7-18); BUN/Creat Ratio 21.7 RATIO (10-20); Calcium,Total 8.7 mg/dL (8.5-10.1); Chloride 107 mmol/L (98-107); Creatinine, Serum 1.57 mg/dL (0.70-1.30); EST Glomerular Filtration Rate 45 mL/min (>60); Est Glom Filt Rate - Afr Amer 54 mL/min (>60); Estimated Creatinine Clearance 39.13 ml/min; Glucose 151 mg/dL (74-106); Potassium 3.6 mmol/L (3.5-5.1); Sodium Level 142 mmol/L (136-145)
[2023-07-17] MEDS: hydrALAZINE 10 MG Tablet PO ×3 (05:52→22:12)
[2023-07-17 06:12] LABS: Bedside Glucose 155 mg/dL (74-106)
[2023-07-17] MEDS: Insulin Glargine-YFGN 100 UNIT/ML Pen 18 UNIT SC (08:17)
[2023-07-17] MEDS: Potassium Chloride Oral Tablet 20 MEQ PO (08:19)
[2023-07-17] MEDS: Multivitamins,Ther W-Minerals Tablet 1 TABLET PO (08:19)
[2023-07-17] MEDS: Carvedilol 6.25 MG Tablet PO ×2 (08:19→17:51)
[2023-07-17] MEDS: Amiodarone 200 MG Tablet PO (08:20)
[2023-07-17] MEDS: Furosemide 40 MG Tablet PO (08:20)
[2023-07-17] MEDS: Finasteride 5 MG Tablet PO (08:20)
[2023-07-17] MEDS: Clopidogrel Bisulfate 75 MG Tablet PO (08:20)
[2023-07-17] MEDS: Gabapentin 100 MG Capsule PO ×2 (08:24→17:49)
[2023-07-17 11:20] LABS: Bedside Glucose 291 mg/dL (74-106)
--- NOTE | 2023-07-17 11:55 | NURSING ---
dr cardoso updated on pts blood sugars running in 200's at times. new order to add humalog 5 units AC. pt updated.
[2023-07-17] MEDS: Insulin Lispro 100 UNIT/ML INSULN.PEN SC ×2 (12:15→17:52)
[2023-07-17 16:53] LABS: Bedside Glucose 226 mg/dL (74-106)
[2023-07-17 21:28] LABS: Bedside Glucose 160 mg/dL (74-106)
[2023-07-17] MEDS: Gabapentin 300 MG Capsule PO (22:12)
[2023-07-17] MEDS: Ezetimibe 10 MG Tablet PO (22:13)
[2023-07-17] MEDS: Sertraline 50 MG Tablet PO (22:13)
[2023-07-17] MEDS: Doxazosin 4 MG Tablet PO (22:13)
[2023-07-17] MEDS: Pramipexole Di-HCl 0.125 MG Tablet PO (22:13)
[2023-07-18 05:05] VITALS: BMI 25.8
[2023-07-18 05:37] VITALS: BP 166/64; PULSE 88
[2023-07-18] MEDS: hydrALAZINE 10 MG Tablet PO ×3 (05:37→21:34)
[2023-07-18 06:28] LABS: Bedside Glucose 168 mg/dL (74-106)
[2023-07-18 07:22] VITALS: PULSE 88; RESP 16; O2SAT 95
[2023-07-18] MEDS: Senna/Docusate Sodium 1 Tablet PO (08:02)
[2023-07-18] MEDS: Insulin Lispro 100 UNIT/ML INSULN.PEN SC ×3 (08:03→17:41)
[2023-07-18] MEDS: Multivitamins,Ther W-Minerals Tablet 1 TABLET PO (08:07)
[2023-07-18] MEDS: Clopidogrel Bisulfate 75 MG Tablet PO (08:07)
[2023-07-18] MEDS: Furosemide 40 MG Tablet PO (08:07)
[2023-07-18] MEDS: Finasteride 5 MG Tablet PO (08:07)
[2023-07-18] MEDS: Amiodarone 200 MG Tablet PO (08:07)
[2023-07-18] MEDS: Potassium Chloride Oral Tablet 20 MEQ PO (08:08)
[2023-07-18] MEDS: Carvedilol 6.25 MG Tablet PO ×2 (08:08→16:26)
[2023-07-18] MEDS: Gabapentin 100 MG Capsule PO ×2 (08:15→16:25)
[2023-07-18] MEDS: Insulin Glargine-YFGN 100 UNIT/ML Pen 18 UNIT SC (08:20)
[2023-07-18 08:23] VITALS: BP 166/57; PULSE 58
[2023-07-18 11:11] LABS: Bedside Glucose 147 mg/dL (74-106)
--- NOTE | 2023-07-18 11:31 | NURSING ---
PT BIRTHDAY IS TUESDAY, STATED A FEW FAMILY MEMBERS WILL BE COMING AND ASKED IF IT WAS OK AND IF THERE WAS SOME WHERE THEY COULD GO TO HAVE A SMALL REPUBLICAN. THIS NURSE STATED ABSOLUTELY THEY ARE WELCOME TO COME AND THAT WE DO HAVE A BIGGER DINING ROOM THAT THEY COULD USE. STATED THANK YOU.
[2023-07-18 14:14] VITALS: BP 140/50; PULSE 65
--- NOTE | 2023-07-18 14:43 | CASEMGMT ---
TCU admit note: Sw met with patient at bedside to complete initial assessment. Introduced self and role. Verified/ validated patient's contacts. Patient confirmed code status as full code- wishes to remain. Educated to [employer]. Patient's goal is to return home with spouse when medically ready. Sw will continue to follow throughout admission to assist with discharge planning. Amna Finney, FIRE HAZARD INSPECTOR, CAUL PULLER
[2023-07-18 16:00] VITALS: BP 140/50; PULSE 65; RESP 16; TEMP 36.5; O2SAT 94
[2023-07-18 17:16] LABS: Bedside Glucose 164 mg/dL (74-106)
[2023-07-18] MEDS: Latanoprost 0.005% 1 Bottle 1 DRP EACH EYE (21:32)
[2023-07-18] MEDS: Gabapentin 300 MG Capsule PO (21:32)
[2023-07-18] MEDS: Sertraline 50 MG Tablet PO (21:33)
[2023-07-18] MEDS: Pramipexole Di-HCl 0.125 MG Tablet PO (21:33)
[2023-07-18] MEDS: Ezetimibe 10 MG Tablet PO (21:33)
[2023-07-18 21:34] VITALS: BP 157/59; PULSE 58
[2023-07-18] MEDS: Doxazosin 4 MG Tablet PO (21:34)
[2023-07-18 21:51] LABS: Bedside Glucose 162 mg/dL (74-106)
[2023-07-19] VITALS (8 sets, daily range): BP systolic 157–174; BP diastolic 51–74; PULSE 56–93; RESP 18; TEMP 36.5; O2SAT 96; BMI 25.7
[2023-07-19] MEDS: hydrALAZINE 10 MG Tablet PO ×3 (06:08→20:42)
[2023-07-19 07:16] LABS: Bedside Glucose 149 mg/dL (74-106)
[2023-07-19] MEDS: Insulin Glargine-YFGN 100 UNIT/ML Pen 18 UNIT SC (07:59)
[2023-07-19] MEDS: Insulin Lispro 100 UNIT/ML INSULN.PEN SC ×3 (07:59→17:44)
[2023-07-19] MEDS: Furosemide 40 MG Tablet PO (08:00)
[2023-07-19] MEDS: Clopidogrel Bisulfate 75 MG Tablet PO (08:00)
[2023-07-19] MEDS: Carvedilol 6.25 MG Tablet PO ×2 (08:00→17:44)
[2023-07-19] MEDS: Potassium Chloride Oral Tablet 20 MEQ PO (08:00)
[2023-07-19] MEDS: Amiodarone 200 MG Tablet PO (08:00)
[2023-07-19] MEDS: Finasteride 5 MG Tablet PO (08:00)
[2023-07-19] MEDS: Multivitamins,Ther W-Minerals Tablet 1 TABLET PO (08:00)
[2023-07-19] MEDS: Gabapentin 100 MG Capsule PO ×2 (08:02→17:47)
[2023-07-19 11:29] LABS: Bedside Glucose 197 mg/dL (74-106)
--- NOTE | 2023-07-19 12:58 | NURSING ---
R' LEFT UNIT WITH TO ATTEND STROKE SUPPORT MEETING IN [place]. [place] [phone].
--- NOTE | 2023-07-19 13:59 | NURSING ---
R' BACK FROM STROKE SUPPORT MTG.
[2023-07-19 16:55] LABS: Bedside Glucose 200 mg/dL (74-106)
[2023-07-19] MEDS: Gabapentin 300 MG Capsule PO (20:41)
[2023-07-19] MEDS: Ezetimibe 10 MG Tablet PO (20:43)
[2023-07-19] MEDS: Doxazosin 4 MG Tablet PO (20:43)
[2023-07-19] MEDS: Pramipexole Di-HCl 0.125 MG Tablet PO (20:43)
[2023-07-19] MEDS: Sertraline 50 MG Tablet PO (20:44)
[2023-07-19 22:00] LABS: Bedside Glucose 156 mg/dL (74-106)
[2023-07-20] VITALS (8 sets, daily range): BP systolic 127–168; BP diastolic 50–62; PULSE 56–61; RESP 16–18; TEMP 36.5; O2SAT 94; BMI 25.4
[2023-07-20] MEDS: hydrALAZINE 10 MG Tablet PO (05:22)
[2023-07-20 06:24] LABS: Bedside Glucose 168 mg/dL (74-106)
[2023-07-20] MEDS: Insulin Lispro 100 UNIT/ML INSULN.PEN SC ×3 (08:31→17:53)
[2023-07-20] MEDS: Gabapentin 100 MG Capsule PO ×2 (08:31→17:54)
[2023-07-20] MEDS: Carvedilol 6.25 MG Tablet PO ×2 (08:32→17:54)
[2023-07-20] MEDS: Insulin Glargine-YFGN 100 UNIT/ML Pen 18 UNIT SC (08:32)
[2023-07-20] MEDS: Furosemide 40 MG Tablet PO (08:33)
[2023-07-20] MEDS: Multivitamins,Ther W-Minerals Tablet 1 TABLET PO (08:33)
[2023-07-20] MEDS: Clopidogrel Bisulfate 75 MG Tablet PO (08:33)
[2023-07-20] MEDS: Amiodarone 200 MG Tablet PO (08:33)
[2023-07-20] MEDS: Finasteride 5 MG Tablet PO (08:33)
[2023-07-20] MEDS: Potassium Chloride Oral Tablet 20 MEQ PO (08:33)
--- NOTE | 2023-07-20 10:47 | CASEMGMT ---
Addendum entered by Daya Napoles 07/20/23 11:14: ALBARO educated patient and of [employer] Medicare insurance coverage and next review date 07/25. ALBARO informed patient and family that continued stay is not guaranteed. Original Note: Social Work IDT met with patient at bedside to complete care plan meeting. Discussed patient progress with therapy (PT/OT), dietary, activities and nursing. Patient discuss concerns for diabetic diet and meals for home. Patient is currently obtaining meals on wheels. Patient continues to require assistance for mobility and support. Patient will need continued therapy. Patient will be assessed for DME by therapy services. Patient is currently participating in the community care network. ALBARO discussed home health care services and outpatient therapy. Patient utilized home health care and outpatient services in the past, but both patient and declined services. ALBARO will continue to monitor to assist with discharge planning. HOA Morales
[2023-07-20 11:53] LABS: Bedside Glucose 170 mg/dL (74-106)
--- NOTE | 2023-07-20 12:09 | NURSING ---
Offered covid vaccine, VIS provided. Patient refuses at this time.
[2023-07-20] MEDS: hydrALAZINE 25 MG Tablet PO ×2 (12:18→21:18)
[2023-07-20 17:12] LABS: Bedside Glucose 84 mg/dL (74-106)
[2023-07-20 18:16] LABS: Bedside Glucose 96 mg/dL (74-106)
[2023-07-20] MEDS: Gabapentin 300 MG Capsule PO (21:18)
[2023-07-20] MEDS: Latanoprost 0.005% 1 Bottle 1 DRP EACH EYE (21:19)
[2023-07-20] MEDS: Pramipexole Di-HCl 0.125 MG Tablet PO (21:19)
[2023-07-20] MEDS: Doxazosin 4 MG Tablet PO (21:19)
[2023-07-20] MEDS: Sertraline 50 MG Tablet PO (21:20)
[2023-07-20] MEDS: Ezetimibe 10 MG Tablet PO (21:20)
[2023-07-20 22:24] LABS: Bedside Glucose 195 mg/dL (74-106)
[2023-07-21 05:24] VITALS: BP 158/66; PULSE 64
[2023-07-21 05:25] VITALS: BP 158/66; PULSE 64
[2023-07-21] MEDS: hydrALAZINE 25 MG Tablet PO ×3 (05:25→21:16)
[2023-07-21 05:46] VITALS: BMI 25.0
[2023-07-21 06:40] LABS: Bedside Glucose 138 mg/dL (74-106)
[2023-07-21] MEDS: Insulin Lispro 100 UNIT/ML INSULN.PEN SC ×3 (07:55→17:43)
[2023-07-21] MEDS: Carvedilol 6.25 MG Tablet PO ×2 (07:57→17:42)
[2023-07-21] MEDS: Potassium Chloride Oral Tablet 20 MEQ PO (07:57)
[2023-07-21] MEDS: Clopidogrel Bisulfate 75 MG Tablet PO (07:58)
[2023-07-21] MEDS: Amiodarone 200 MG Tablet PO (07:58)
[2023-07-21] MEDS: Furosemide 40 MG Tablet PO (07:58)
[2023-07-21] MEDS: Finasteride 5 MG Tablet PO (07:58)
[2023-07-21] MEDS: Multivitamins,Ther W-Minerals Tablet 1 TABLET PO (07:58)
[2023-07-21] MEDS: Insulin Glargine-YFGN 100 UNIT/ML Pen 18 UNIT SC (07:59)
[2023-07-21] MEDS: Gabapentin 100 MG Capsule PO ×2 (08:05→17:42)
[2023-07-21 08:11] VITALS: BP 146/59; PULSE 61
[2023-07-21 11:21] LABS: Bedside Glucose 250 mg/dL (74-106)
[2023-07-21 14:42] VITALS: BP 141/51; PULSE 55
[2023-07-21 14:59] VITALS: BP 141/51; PULSE 55; RESP 16; TEMP 36.6; O2SAT 94
[2023-07-21 16:24] LABS: Bedside Glucose 159 mg/dL (74-106)
--- NOTE | 2023-07-21 17:14 | CASEMGMT ---
Social Work SW met with patient at bedside to complete MDS. Patient BIM () and PhQ (00) HOA Morales
[2023-07-21] MEDS: Gabapentin 300 MG Capsule PO (21:15)
[2023-07-21 21:16] VITALS: BP 141/51; PULSE 61
[2023-07-21] MEDS: Sertraline 50 MG Tablet PO (21:16)
[2023-07-21] MEDS: Doxazosin 4 MG Tablet PO (21:16)
[2023-07-21] MEDS: Ezetimibe 10 MG Tablet PO (21:16)
[2023-07-21] MEDS: Pramipexole Di-HCl 0.125 MG Tablet PO (21:16)
[2023-07-21 21:33] LABS: Bedside Glucose 207 mg/dL (74-106)
[2023-07-22] VITALS (8 sets, daily range): BP systolic 130–152; BP diastolic 43–55; PULSE 56–68; RESP 17; TEMP 36.4; O2SAT 93–94; BMI 25.2
[2023-07-22 06:11] LABS: Absolute Lymphocyte Count 1.39 X10^3/uL (0.83-4.51); Absolute Neutrophil Count 9.9 X10^3/uL (2.0-7.7); Basophil# 0.08 X10^3/uL; Basophil% 0.6 % (0-1); Eosinophil# 0.47 X10^3/uL; Eosinophils% 3.6 % (0-5); Hematocrit 30.5 % (40-54); Hemoglobin 9.6 g/dL (13.0-16.5); Lymphocyte # 1.39 X10^3/ul (0.83-4.51); Lymphocyte % 10.7 % (19-41); Mean Corp Hgb Conc 31.5 g/dL (32-36); Mean Corpuscular Hgb 29.6 pg (27.0-32.0); Mean Corpuscular Volume 94.1 fL (80-94); Mean Platelet Vol. 10.4 fl (6.2-12.0); Monocyte# 1.13 X10^3/uL; Monocyte% 8.7 % (0-10); NRBC Flagged by Analyzer 0 % (0-5); Neutrophil # 9.86 X10^3/uL (2.7-7.7); Neutrophil % 75.7 % (47-70); Platelet Count 384 K/mm3 (150-450); RBC Distribution Width CV 14.2 % (11.6-14.6); RBC Distribution Width SD 48.5 fl (35.1-43.9); Red Blood Count 3.24 M/mm3 (4.6-6.2)
[2023-07-22 06:38] LABS: Bedside Glucose 165 mg/dL (74-106)
[2023-07-22] MEDS: hydrALAZINE 25 MG Tablet PO ×3 (06:47→20:56)
[2023-07-22 06:48] LABS: Anion Gap 6 (5-15); BUN 34 mg/dL (7-18); BUN/Creat Ratio 18.1 RATIO (10-20); Calcium,Total 8.6 mg/dL (8.5-10.1); Chloride 107 mmol/L (98-107); Creatinine, Serum 1.88 mg/dL (0.70-1.30); EST Glomerular Filtration Rate 37 mL/min (>60); Est Glom Filt Rate - Afr Amer 44 mL/min (>60); Glucose 168 mg/dL (74-106); Potassium 3.8 mmol/L (3.5-5.1); Sodium Level 140 mmol/L (136-145)
[2023-07-22] MEDS: Insulin Glargine-YFGN 100 UNIT/ML Pen 18 UNIT SC (08:18)
[2023-07-22] MEDS: Carvedilol 6.25 MG Tablet PO ×2 (08:18→17:37)
[2023-07-22] MEDS: Insulin Lispro 100 UNIT/ML INSULN.PEN SC ×3 (08:18→17:37)
[2023-07-22] MEDS: Potassium Chloride Oral Tablet 20 MEQ PO (08:19)
[2023-07-22] MEDS: Multivitamins,Ther W-Minerals Tablet 1 TABLET PO (08:19)
[2023-07-22] MEDS: Clopidogrel Bisulfate 75 MG Tablet PO (08:19)
[2023-07-22] MEDS: Finasteride 5 MG Tablet PO (08:19)
[2023-07-22] MEDS: Amiodarone 200 MG Tablet PO (08:19)
[2023-07-22] MEDS: Furosemide 40 MG Tablet PO (08:19)
[2023-07-22] MEDS: Gabapentin 100 MG Capsule PO ×2 (08:22→17:40)
[2023-07-22 11:07] LABS: Bedside Glucose 147 mg/dL (74-106)
[2023-07-22] MEDS: Tuberculin,Purif.prot.deriv. 50 TU/ML Vial 0.1 ML ID (12:00)
--- NOTE | 2023-07-22 12:49 | NURSING ---
Dealer Development Manager Note; MDS for 07/21/2023 Complete
[2023-07-22 16:24] LABS: Bedside Glucose 247 mg/dL (74-106)
[2023-07-22] MEDS: Gabapentin 300 MG Capsule PO (20:55)
[2023-07-22] MEDS: Doxazosin 4 MG Tablet PO (20:56)
[2023-07-22] MEDS: Pramipexole Di-HCl 0.125 MG Tablet PO (20:57)
[2023-07-22] MEDS: Latanoprost 0.005% 1 Bottle 1 DRP EACH EYE (20:58)
[2023-07-22] MEDS: Ezetimibe 10 MG Tablet PO (20:59)
[2023-07-22] MEDS: Sertraline 50 MG Tablet PO (20:59)
[2023-07-22 21:24] LABS: Bedside Glucose 157 mg/dL (74-106)
[2023-07-23] VITALS (7 sets, daily range): BP systolic 145–159; BP diastolic 54–63; PULSE 57–89; RESP 19; TEMP 36.5; O2SAT 92–93; BMI 25.4
[2023-07-23] MEDS: hydrALAZINE 25 MG Tablet PO ×3 (05:11→20:50)
[2023-07-23 06:50] LABS: Bedside Glucose 149 mg/dL (74-106)
[2023-07-23] MEDS: Gabapentin 100 MG Capsule PO ×2 (08:17→17:11)
[2023-07-23] MEDS: Insulin Lispro 100 UNIT/ML INSULN.PEN SC ×3 (08:17→17:11)
[2023-07-23] MEDS: Insulin Glargine-YFGN 100 UNIT/ML Pen 18 UNIT SC (08:17)
[2023-07-23] MEDS: Potassium Chloride Oral Tablet 20 MEQ PO (08:18)
[2023-07-23] MEDS: Multivitamins,Ther W-Minerals Tablet 1 TABLET PO (08:19)
[2023-07-23] MEDS: Carvedilol 6.25 MG Tablet PO ×2 (08:19→17:10)
[2023-07-23] MEDS: Clopidogrel Bisulfate 75 MG Tablet PO (09:45)
[2023-07-23] MEDS: Amiodarone 200 MG Tablet PO (09:45)
[2023-07-23] MEDS: Furosemide 40 MG Tablet PO (09:45)
[2023-07-23] MEDS: Finasteride 5 MG Tablet PO (09:46)
[2023-07-23] MEDS: Nystatin Powder 15gm Bottle 1 APPLIC TOPICAL ×2 (09:46→20:52)
[2023-07-23 11:26] LABS: Bedside Glucose 210 mg/dL (74-106)
[2023-07-23 16:54] LABS: Bedside Glucose 132 mg/dL (74-106)
[2023-07-23] MEDS: Gabapentin 300 MG Capsule PO (20:48)
[2023-07-23] MEDS: Pramipexole Di-HCl 0.125 MG Tablet PO (20:51)
[2023-07-23] MEDS: Doxazosin 4 MG Tablet PO (20:51)
[2023-07-23] MEDS: Ezetimibe 10 MG Tablet PO (20:52)
[2023-07-23] MEDS: Sertraline 50 MG Tablet PO (20:52)
[2023-07-23 21:41] LABS: Bedside Glucose 191 mg/dL (74-106)
[2023-07-24 05:00] VITALS: BP 160/64; PULSE 61
[2023-07-24 05:09] VITALS: BP 160/64; PULSE 61
[2023-07-24] MEDS: hydrALAZINE 25 MG Tablet PO ×3 (05:09→21:48)
[2023-07-24 05:43] VITALS: BMI 25.4
[2023-07-24 06:17] LABS: Bedside Glucose 128 mg/dL (74-106)
[2023-07-24] MEDS: Insulin Glargine-YFGN 100 UNIT/ML Pen 18 UNIT SC (08:56)
[2023-07-24] MEDS: Potassium Chloride Oral Tablet 20 MEQ PO (08:57)
[2023-07-24] MEDS: Insulin Lispro 100 UNIT/ML INSULN.PEN SC ×3 (09:00→18:13)
[2023-07-24] MEDS: Nystatin Powder 15gm Bottle 1 APPLIC TOPICAL ×2 (09:55→21:47)
[2023-07-24] MEDS: Carvedilol 6.25 MG Tablet PO ×2 (09:56→18:13)
[2023-07-24] MEDS: Clopidogrel Bisulfate 75 MG Tablet PO (09:57)
[2023-07-24] MEDS: Amiodarone 200 MG Tablet PO (09:58)
[2023-07-24] MEDS: Furosemide 40 MG Tablet PO (09:58)
[2023-07-24] MEDS: Multivitamins,Ther W-Minerals Tablet 1 TABLET PO (09:59)
[2023-07-24] MEDS: Finasteride 5 MG Tablet PO (10:02)
[2023-07-24] MEDS: Gabapentin 100 MG Capsule PO ×2 (10:07→18:19)
[2023-07-24 11:26] LABS: Bedside Glucose 154 mg/dL (74-106)
[2023-07-24 13:29] VITALS: BP 136/53; PULSE 60
[2023-07-24 13:51] VITALS: BP 136/53; PULSE 59; RESP 16; TEMP 36.7; O2SAT 93
[2023-07-24 16:40] LABS: Bedside Glucose 144 mg/dL (74-106)
[2023-07-24 21:31] LABS: Bedside Glucose 110 mg/dL (74-106)
[2023-07-24] MEDS: Gabapentin 300 MG Capsule PO (21:46)
[2023-07-24 21:48] VITALS: BP 138/54; PULSE 56
[2023-07-24] MEDS: Doxazosin 4 MG Tablet PO (21:49)
[2023-07-24] MEDS: Ezetimibe 10 MG Tablet PO (21:49)
[2023-07-24] MEDS: Pramipexole Di-HCl 0.125 MG Tablet PO (21:49)
[2023-07-24] MEDS: Sertraline 50 MG Tablet PO (21:50)
[2023-07-24 21:56] VITALS: BP 138/54; PULSE 56
[2023-07-25 05:33] VITALS: BP 153/51; PULSE 61
[2023-07-25] MEDS: hydrALAZINE 25 MG Tablet PO ×3 (05:33→21:53)
[2023-07-25 05:37] VITALS: BP 153/51; PULSE 61
[2023-07-25 05:42] VITALS: BMI 25.0
[2023-07-25 06:39] LABS: Bedside Glucose 108 mg/dL (74-106)
[2023-07-25] MEDS: Carvedilol 6.25 MG Tablet PO ×2 (09:54→17:45)
[2023-07-25] MEDS: Insulin Glargine-YFGN 100 UNIT/ML Pen 18 UNIT SC (09:55)
[2023-07-25] MEDS: Potassium Chloride Oral Tablet 20 MEQ PO (09:55)
[2023-07-25] MEDS: Furosemide 40 MG Tablet PO (09:55)
[2023-07-25] MEDS: Multivitamins,Ther W-Minerals Tablet 1 TABLET PO (09:55)
[2023-07-25] MEDS: Amiodarone 200 MG Tablet PO (09:55)
[2023-07-25] MEDS: Clopidogrel Bisulfate 75 MG Tablet PO (09:56)
[2023-07-25] MEDS: Finasteride 5 MG Tablet PO (09:56)
[2023-07-25] MEDS: Gabapentin 100 MG Capsule PO ×2 (09:59→17:46)
[2023-07-25] MEDS: Insulin Lispro 100 UNIT/ML INSULN.PEN SC ×3 (09:59→17:45)
[2023-07-25] MEDS: Nystatin Powder 15gm Bottle 1 APPLIC TOPICAL ×2 (10:10→21:52)
[2023-07-25 12:01] LABS: Bedside Glucose 160 mg/dL (74-106)
[2023-07-25 13:34] VITALS: BP 143/53; PULSE 58
[2023-07-25 14:45] VITALS: BP 143/52; PULSE 62; RESP 20; TEMP 36.6; O2SAT 95
[2023-07-25 18:39] LABS: Bedside Glucose 203 mg/dL (74-106)
[2023-07-25 20:51] VITALS: PULSE 60; RESP 16; O2SAT 96
[2023-07-25 21:31] LABS: Bedside Glucose 112 mg/dL (74-106)
[2023-07-25] MEDS: Gabapentin 300 MG Capsule PO (21:50)
[2023-07-25] MEDS: Doxazosin 4 MG Tablet PO (21:52)
[2023-07-25] MEDS: Latanoprost 0.005% 1 Bottle 1 DRP EACH EYE (21:52)
[2023-07-25 21:53] VITALS: BP 155/55; PULSE 62
[2023-07-25] MEDS: Pramipexole Di-HCl 0.125 MG Tablet PO (21:53)
[2023-07-25] MEDS: Ezetimibe 10 MG Tablet PO (21:53)
[2023-07-25] MEDS: Sertraline 50 MG Tablet PO (21:53)
[2023-07-26 06:00] VITALS: BMI 25.1
[2023-07-26 06:24] LABS: Bedside Glucose 121 mg/dL (74-106)
[2023-07-26 06:54] VITALS: BP 164/61; PULSE 60
[2023-07-26] MEDS: hydrALAZINE 25 MG Tablet PO ×3 (06:54→20:25)
[2023-07-26 07:59] VITALS: BP 147/59; PULSE 62; RESP 16; TEMP 36.5; O2SAT 92
[2023-07-26] MEDS: Insulin Lispro 100 UNIT/ML INSULN.PEN SC ×3 (08:02→17:58)
[2023-07-26] MEDS: Potassium Chloride Oral Tablet 20 MEQ PO (08:03)
[2023-07-26] MEDS: Multivitamins,Ther W-Minerals Tablet 1 TABLET PO (08:03)
[2023-07-26] MEDS: Carvedilol 6.25 MG Tablet PO ×2 (08:03→17:59)
[2023-07-26] MEDS: Insulin Glargine-YFGN 100 UNIT/ML Pen 18 UNIT SC (08:03)
[2023-07-26] MEDS: Amiodarone 200 MG Tablet PO (08:04)
[2023-07-26] MEDS: Nystatin Powder 15gm Bottle 1 APPLIC TOPICAL ×2 (08:04→20:28)
[2023-07-26] MEDS: Clopidogrel Bisulfate 75 MG Tablet PO (08:04)
[2023-07-26] MEDS: Finasteride 5 MG Tablet PO (08:04)
[2023-07-26] MEDS: Furosemide 40 MG Tablet PO (08:04)
[2023-07-26] MEDS: Gabapentin 100 MG Capsule PO ×2 (08:06→17:59)
[2023-07-26 11:29] LABS: Bedside Glucose 127 mg/dL (74-106)
[2023-07-26 13:44] VITALS: BP 138/54; PULSE 57
[2023-07-26 13:46] VITALS: PULSE 57
[2023-07-26 15:00] VITALS: BMI 25.1
[2023-07-26 16:59] LABS: Bedside Glucose 113 mg/dL (74-106)
[2023-07-26 18:02] VITALS: BP 158/58; PULSE 60
[2023-07-26 20:25] VITALS: BP 147/56; PULSE 52
[2023-07-26] MEDS: Ezetimibe 10 MG Tablet PO (20:25)
[2023-07-26] MEDS: Gabapentin 300 MG Capsule PO (20:25)
[2023-07-26] MEDS: Pramipexole Di-HCl 0.125 MG Tablet PO (20:25)
[2023-07-26] MEDS: Sertraline 50 MG Tablet PO (20:26)
[2023-07-26] MEDS: Doxazosin 4 MG Tablet PO (20:26)
[2023-07-26 21:47] LABS: Bedside Glucose 126 mg/dL (74-106)
[2023-07-27 05:34] VITALS: BP 161/70; PULSE 65
[2023-07-27] MEDS: hydrALAZINE 25 MG Tablet PO ×3 (05:34→21:30)
[2023-07-27] MEDS: Acetaminophen 500 MG Tablet 1000 MG PO (05:38)
[2023-07-27 05:45] VITALS: BMI 24.9
[2023-07-27 06:25] LABS: Bedside Glucose 129 mg/dL (74-106)
--- NOTE | 2023-07-27 07:50 | MDS.RN ---
Information for the MDS was obtained from review of the clinical record, interview of resident, staff, and direct observation of resident?s care.
[2023-07-27] MEDS: Insulin Lispro 100 UNIT/ML INSULN.PEN SC ×2 (08:10→12:39)
[2023-07-27] MEDS: Potassium Chloride Oral Tablet 20 MEQ PO (08:11)
[2023-07-27] MEDS: Insulin Glargine-YFGN 100 UNIT/ML Pen 18 UNIT SC (08:11)
[2023-07-27] MEDS: Multivitamins,Ther W-Minerals Tablet 1 TABLET PO (08:11)
[2023-07-27] MEDS: Carvedilol 6.25 MG Tablet PO ×2 (08:11→17:20)
[2023-07-27] MEDS: Clopidogrel Bisulfate 75 MG Tablet PO (08:12)
[2023-07-27] MEDS: Amiodarone 200 MG Tablet PO (08:12)
[2023-07-27] MEDS: Furosemide 40 MG Tablet PO (08:12)
[2023-07-27] MEDS: Finasteride 5 MG Tablet PO (08:12)
[2023-07-27] MEDS: Gabapentin 100 MG Capsule PO ×2 (08:15→17:20)
[2023-07-27] MEDS: Nystatin Powder 15gm Bottle 1 APPLIC TOPICAL ×2 (08:21→21:31)
[2023-07-27 11:26] LABS: Bedside Glucose 207 mg/dL (74-106)
[2023-07-27 13:28] VITALS: BP 129/50; PULSE 56
[2023-07-27 14:54] VITALS: BP 136/53; PULSE 60; RESP 18; TEMP 36.6; O2SAT 97
--- NOTE | 2023-07-27 16:20 | NURSING ---
Aides let this nurse know that patient was seen taking allergy medicine in room from a bottle from home. This nurse goes back to room and asks patient if we can lock medicine in medbox and get an order on our MAR for same medication. Patient becomes upset and reports he doesn't understand why he can't have it since it is just OTC. This nurse explained that we need to monitor all medications being taken and possible interactions and that I would be happy to have the exact medication ordered for him while he is here but patient refused. This nurse did explain that he can not keep bottle in room and if he wanted to continue to take medication, it should not be a problem once we get it ordered but patient continued to refuse and reports he will have take bottle home with her.
[2023-07-27 17:17] LABS: Bedside Glucose 67 mg/dL (74-106)
[2023-07-27] MEDS: Senna/Docusate Sodium 1 Tablet PO (17:20)
--- NOTE | 2023-07-27 17:33 | NURSING ---
BS 67 prior to dinner. Denies symptoms of hypoglycemia. Ty Ty juice administered and BS rechecked in 15 mins is 80. Patient educated that dinner would be coming in 10-15mins but requests additional orange juice. Patient denies furhter needs at this time.
[2023-07-27 17:42] LABS: Bedside Glucose 80 mg/dL (74-106)
[2023-07-27 19:50] VITALS: PULSE 57; RESP 16; O2SAT 93
[2023-07-27 21:30] VITALS: BP 171/61; PULSE 60
[2023-07-27] MEDS: Doxazosin 4 MG Tablet PO (21:30)
[2023-07-27] MEDS: Pramipexole Di-HCl 0.125 MG Tablet PO (21:30)
[2023-07-27] MEDS: Gabapentin 300 MG Capsule PO (21:30)
[2023-07-27] MEDS: Sertraline 50 MG Tablet PO (21:31)
[2023-07-27] MEDS: Latanoprost 0.005% 1 Bottle 1 DRP EACH EYE (21:31)
[2023-07-27] MEDS: Ezetimibe 10 MG Tablet PO (21:32)
[2023-07-27 21:45] LABS: Bedside Glucose 156 mg/dL (74-106)
[2023-07-28] VITALS (7 sets, daily range): BP systolic 97–169; BP diastolic 56–63; PULSE 60–124; RESP 16–18; TEMP 36.6; O2SAT 94; BMI 24.9
[2023-07-28] MEDS: hydrALAZINE 25 MG Tablet PO ×3 (05:49→20:47)
[2023-07-28 06:36] LABS: Bedside Glucose 120 mg/dL (74-106)
[2023-07-28] MEDS: Furosemide 40 MG Tablet PO (08:55)
[2023-07-28] MEDS: Amiodarone 200 MG Tablet PO (08:55)
[2023-07-28] MEDS: Nystatin Powder 15gm Bottle 1 APPLIC TOPICAL ×2 (08:55→20:48)
[2023-07-28] MEDS: Multivitamins,Ther W-Minerals Tablet 1 TABLET PO (08:55)
[2023-07-28] MEDS: Carvedilol 6.25 MG Tablet PO ×2 (08:55→18:36)
[2023-07-28] MEDS: Clopidogrel Bisulfate 75 MG Tablet PO (08:55)
[2023-07-28] MEDS: Finasteride 5 MG Tablet PO (08:56)
[2023-07-28] MEDS: Potassium Chloride Oral Tablet 20 MEQ PO (08:56)
[2023-07-28] MEDS: Insulin Glargine-YFGN 100 UNIT/ML Pen 18 UNIT SC (08:57)
[2023-07-28] MEDS: Insulin Lispro 100 UNIT/ML INSULN.PEN SC ×3 (08:58→18:37)
[2023-07-28] MEDS: Gabapentin 100 MG Capsule PO ×2 (09:03→18:37)
[2023-07-28 11:35] LABS: Bedside Glucose 160 mg/dL (74-106)
[2023-07-28 16:54] LABS: Bedside Glucose 114 mg/dL (74-106)
[2023-07-28] MEDS: Gabapentin 300 MG Capsule PO (20:46)
[2023-07-28] MEDS: Pramipexole Di-HCl 0.125 MG Tablet PO (20:48)
[2023-07-28] MEDS: Doxazosin 4 MG Tablet PO (20:48)
[2023-07-28] MEDS: Sertraline 50 MG Tablet PO (20:49)
[2023-07-28] MEDS: Ezetimibe 10 MG Tablet PO (20:49)
[2023-07-28 22:00] LABS: Bedside Glucose 122 mg/dL (74-106)
[2023-07-29] VITALS (9 sets, daily range): BP systolic 141–174; BP diastolic 52–64; PULSE 55–66; RESP 16–20; TEMP 36.2–36.6; O2SAT 93–96; BMI 24.9
[2023-07-29] MEDS: hydrALAZINE 25 MG Tablet PO (05:32)
[2023-07-29 05:54] LABS: Absolute Lymphocyte Count 1.68 X10^3/uL (0.83-4.51); Absolute Neutrophil Count 6.7 X10^3/uL (2.0-7.7); Basophil# 0.07 X10^3/uL; Basophil% 0.7 % (0-1); Eosinophil# 0.54 X10^3/uL; Eosinophils% 5.5 % (0-5); Hematocrit 32.1 % (40-54); Hemoglobin 10.2 g/dL (13.0-16.5); Lymphocyte # 1.68 X10^3/ul (0.83-4.51); Mean Corp Hgb Conc 31.8 g/dL (32-36); Mean Corpuscular Hgb 29.4 pg (27.0-32.0); Mean Corpuscular Volume 92.5 fL (80-94); Mean Platelet Vol. 9.9 fl (6.2-12.0); Monocyte# 0.86 X10^3/uL; Monocyte% 8.7 % (0-10); NRBC Flagged by Analyzer 0 % (0-5); Neutrophil # 6.69 X10^3/uL (2.7-7.7); Neutrophil % 67.5 % (47-70); Platelet Count 352 K/mm3 (150-450); RBC Distribution Width CV 14.4 % (11.6-14.6); RBC Distribution Width SD 48.4 fl (35.1-43.9); Red Blood Count 3.47 M/mm3 (4.6-6.2); White Blood Count 9.9 K/mm3 (4.4-11.0)
[2023-07-29 06:25] LABS: Anion Gap 6 (5-15); BUN 33 mg/dL (7-18); BUN/Creat Ratio 18.3 RATIO (10-20); Calcium,Total 8.9 mg/dL (8.5-10.1); Chloride 106 mmol/L (98-107); EST Glomerular Filtration Rate 38 mL/min (>60); Est Glom Filt Rate - Afr Amer 47 mL/min (>60); Estimated Creatinine Clearance 33.53 ml/min; Glucose 103 mg/dL (74-106); Potassium 3.9 mmol/L (3.5-5.1); Sodium Level 141 mmol/L (136-145)
[2023-07-29 06:58] LABS: Bedside Glucose 113 mg/dL (74-106)
[2023-07-29] MEDS: Insulin Lispro 100 UNIT/ML INSULN.PEN SC ×2 (08:08→11:56)
[2023-07-29] MEDS: Carvedilol 6.25 MG Tablet PO ×2 (08:09→17:07)
[2023-07-29] MEDS: Potassium Chloride Oral Tablet 20 MEQ PO (08:09)
[2023-07-29] MEDS: Multivitamins,Ther W-Minerals Tablet 1 TABLET PO (08:09)
[2023-07-29] MEDS: Furosemide 40 MG Tablet PO ×2 (08:10→23:43)
[2023-07-29] MEDS: Clopidogrel Bisulfate 75 MG Tablet PO (08:10)
[2023-07-29] MEDS: Finasteride 5 MG Tablet PO (08:10)
[2023-07-29] MEDS: Amiodarone 200 MG Tablet PO (08:10)
[2023-07-29] MEDS: Nystatin Powder 15gm Bottle 1 APPLIC TOPICAL ×2 (08:10→20:44)
[2023-07-29] MEDS: Insulin Glargine-YFGN 100 UNIT/ML Pen 18 UNIT SC (08:11)
[2023-07-29] MEDS: Gabapentin 100 MG Capsule PO ×2 (08:19→17:06)
[2023-07-29 09:33] LABS: Bedside Glucose 175 mg/dL (74-106)
[2023-07-29 11:30] LABS: Bedside Glucose 150 mg/dL (74-106)
--- NOTE | 2023-07-29 11:58 | NURSING ---
THERAPY CAME TO THIS NURSE AND STATED PT WAS FEELING DIZZY AFTER A SHOWER. VITALS AND BLOOD SUGAR CHECKED,ALL WNL. WENT BACK TO CHECK ON PT WITH IN THE HOUR AND PT STATED HE FELT BETTER AND THINKS IT WAS JUST FROM BEING UP AND GETTING A SHOWER. WILL CONTINUE TO MONITOR. RN AWARE
[2023-07-29] MEDS: hydrALAZINE 50 MG Tablet PO ×2 (13:45→21:02)
[2023-07-29 17:03] LABS: Bedside Glucose 98 mg/dL (74-106)
[2023-07-29] MEDS: Pramipexole Di-HCl 0.125 MG Tablet PO (20:44)
[2023-07-29] MEDS: Gabapentin 300 MG Capsule PO (20:44)
[2023-07-29] MEDS: Latanoprost 0.005% 1 Bottle 1 DRP EACH EYE (20:44)
[2023-07-29] MEDS: Sertraline 50 MG Tablet PO (20:45)
[2023-07-29] MEDS: Ezetimibe 10 MG Tablet PO (20:45)
[2023-07-29] MEDS: Doxazosin 4 MG Tablet PO (20:52)
[2023-07-29 21:38] LABS: Bedside Glucose 163 mg/dL (74-106)
--- NOTE | 2023-07-29 23:15 | NURSING ---
Pt called out stating he is having trouble breathing. Requesting O2. Lungs with fine crackles noted mid right and lower right, l lung diminished. Pt spo2 93 on ra. [address] Huffman notified. Pt orders received. Will continue to monitor.
--- NOTE | 2023-07-29 23:30 | RAD_ITS ---
STUDY: X-RAY CHEST REASON FOR EXAM: Male, 83 years old. shortness of breath TECHNIQUE: PA and lateral views of the chest. COMPARISON: 07/09/2023 FINDINGS: The lungs are clear and expanded. No change in the small left pleural effusion with left lower lobe atelectasis. Elevated right hemidiaphragm which is unchanged. There is moderate cardiac enlargement. Normal mediastinum and arianne. Normal visualized pulmonary arteries. Normal visualized aortic arch and descending thoracic aorta. Normal visualized thoracic spine. Normal visualized ribs, clavicles, and shoulders. There is no demonstrated abnormality of the visualized soft tissue structures of the upper abdomen. RAD/Chest PA and Lateral IMPRESSION: No change in small left pleural effusion with left lower lobe atelectasis. Cardiomegaly Electronically Signed: Rafa Lowery MD at 23:47 EDT ,
[2023-07-30] VITALS (11 sets, daily range): BP systolic 104–149; BP diastolic 40–70; PULSE 42–82; RESP 16–20; TEMP 36.2–36.6; O2SAT 94–99; BMI 24.8
[2023-07-30 06:34] LABS: Bedside Glucose 127 mg/dL (74-106)
[2023-07-30] MEDS: hydrALAZINE 50 MG Tablet PO ×3 (06:40→22:28)
--- NOTE | 2023-07-30 06:49 | NURSING ---
Pt denies sob, dizziness, chest pain or any other complaints. Fine crackles in rll and r mid lobe. Left lung diminished. HR reg to irreg. Range 38-68. Spo2 on 2 liters per nc this am 99%. BP 123/70. Report given to day shift nurse.
[2023-07-30] MEDS: Furosemide 40 MG Tablet PO (08:08)
[2023-07-30] MEDS: Carvedilol 6.25 MG Tablet PO (08:08)
[2023-07-30] MEDS: Multivitamins,Ther W-Minerals Tablet 1 TABLET PO (08:08)
[2023-07-30] MEDS: Clopidogrel Bisulfate 75 MG Tablet PO (08:08)
[2023-07-30] MEDS: Amiodarone 200 MG Tablet PO (08:09)
[2023-07-30] MEDS: Potassium Chloride Oral Tablet 20 MEQ PO (08:09)
[2023-07-30] MEDS: Gabapentin 100 MG Capsule PO ×2 (08:10→18:10)
[2023-07-30] MEDS: Finasteride 5 MG Tablet PO (08:10)
[2023-07-30] MEDS: Insulin Glargine-YFGN 100 UNIT/ML Pen 18 UNIT SC (08:12)
[2023-07-30] MEDS: Insulin Lispro 100 UNIT/ML INSULN.PEN SC ×3 (08:12→18:11)
[2023-07-30] MEDS: Nystatin Powder 15gm Bottle 1 APPLIC TOPICAL ×2 (08:14→22:32)
[2023-07-30] MEDS: Senna/Docusate Sodium 1 Tablet PO (08:18)
--- NOTE | 2023-07-30 10:01 | NURSING ---
Updated Dr. Huffman on patient's CXR from 07/28 and patient low HRs. New order to decrease Coreg 3.125mg PO BID.
[2023-07-30 11:24] LABS: Bedside Glucose 110 mg/dL (74-106)
[2023-07-30 16:26] LABS: Bedside Glucose 165 mg/dL (74-106)
[2023-07-30] MEDS: Carvedilol 3.125 MG TABLET PO (18:10)
[2023-07-30 21:43] LABS: Bedside Glucose 109 mg/dL (74-106)
[2023-07-30] MEDS: Sertraline 50 MG Tablet PO (22:28)
[2023-07-30] MEDS: Doxazosin 4 MG Tablet PO (22:28)
[2023-07-30] MEDS: Gabapentin 300 MG Capsule PO (22:28)
[2023-07-30] MEDS: Ezetimibe 10 MG Tablet PO (22:28)
[2023-07-30] MEDS: Pramipexole Di-HCl 0.125 MG Tablet PO (22:52)
[2023-07-31 05:21] VITALS: BMI 25.1
[2023-07-31 06:06] VITALS: BP 140/67; PULSE 58
[2023-07-31] MEDS: hydrALAZINE 50 MG Tablet PO ×3 (06:06→22:34)
[2023-07-31 06:33] LABS: Bedside Glucose 119 mg/dL (74-106)
[2023-07-31 07:42] VITALS: O2SAT 94
[2023-07-31] MEDS: Amiodarone 200 MG Tablet PO (09:20)
[2023-07-31] MEDS: Furosemide 40 MG Tablet PO (09:20)
[2023-07-31] MEDS: Finasteride 5 MG Tablet PO (09:20)
[2023-07-31] MEDS: Carvedilol 3.125 MG TABLET PO (09:20)
[2023-07-31] MEDS: Gabapentin 100 MG Capsule PO ×2 (09:20→17:37)
[2023-07-31] MEDS: Insulin Glargine-YFGN 100 UNIT/ML Pen 18 UNIT SC (09:21)
[2023-07-31] MEDS: Clopidogrel Bisulfate 75 MG Tablet PO (09:21)
[2023-07-31] MEDS: Potassium Chloride Oral Tablet 20 MEQ PO (09:21)
[2023-07-31] MEDS: Multivitamins,Ther W-Minerals Tablet 1 TABLET PO (09:21)
[2023-07-31] MEDS: Insulin Lispro 100 UNIT/ML INSULN.PEN SC ×3 (09:22→17:39)
[2023-07-31] MEDS: Senna/Docusate Sodium 1 Tablet PO (09:38)
[2023-07-31 11:15] LABS: Bedside Glucose 162 mg/dL (74-106)
[2023-07-31] MEDS: Nystatin Powder 15gm Bottle 1 APPLIC TOPICAL ×2 (11:34→22:40)
[2023-07-31 13:11] VITALS: PULSE 88
[2023-07-31 14:39] VITALS: BP 145/49; PULSE 54; RESP 20; TEMP 36.2; O2SAT 94
[2023-07-31 16:34] LABS: Bedside Glucose 112 mg/dL (74-106)
[2023-07-31 16:43] VITALS: PULSE 58; RESP 18; O2SAT 95
[2023-07-31 22:01] LABS: Bedside Glucose 121 mg/dL (74-106)
[2023-07-31] MEDS: Gabapentin 300 MG Capsule PO (22:32)
[2023-07-31 22:34] VITALS: BP 159/70; PULSE 61
[2023-07-31] MEDS: Sertraline 50 MG Tablet PO (22:35)
[2023-07-31] MEDS: Pramipexole Di-HCl 0.125 MG Tablet PO (22:35)
[2023-07-31] MEDS: Ezetimibe 10 MG Tablet PO (22:35)
[2023-07-31] MEDS: Doxazosin 4 MG Tablet PO (22:35)
[2023-08-01] VITALS (7 sets, daily range): BP systolic 148–164; BP diastolic 50–66; PULSE 57–64; RESP 16–18; TEMP 36.1; O2SAT 93; BMI 25.0
[2023-08-01] MEDS: hydrALAZINE 50 MG Tablet PO ×3 (06:07→20:59)
[2023-08-01 06:46] LABS: Bedside Glucose 131 mg/dL (74-106)
[2023-08-01] MEDS: Insulin Lispro 100 UNIT/ML INSULN.PEN SC ×3 (08:20→17:42)
[2023-08-01] MEDS: Insulin Glargine-YFGN 100 UNIT/ML Pen 18 UNIT SC (08:22)
[2023-08-01] MEDS: Amiodarone 200 MG Tablet PO (08:24)
[2023-08-01] MEDS: Clopidogrel Bisulfate 75 MG Tablet PO (08:24)
[2023-08-01] MEDS: Furosemide 40 MG Tablet PO (08:24)
[2023-08-01] MEDS: Potassium Chloride Oral Tablet 20 MEQ PO (08:24)
[2023-08-01] MEDS: Carvedilol 3.125 MG TABLET PO ×2 (08:24→17:41)
[2023-08-01] MEDS: Multivitamins,Ther W-Minerals Tablet 1 TABLET PO (08:24)
[2023-08-01] MEDS: Finasteride 5 MG Tablet PO (08:25)
[2023-08-01] MEDS: Nystatin Powder 15gm Bottle 1 APPLIC TOPICAL ×2 (08:25→20:55)
[2023-08-01] MEDS: Gabapentin 100 MG Capsule PO ×2 (08:31→17:41)
--- NOTE | 2023-08-01 08:41 | NURSING ---
Addendum entered by Jonathan Dubois 08/02/23 01:26: PT had extra large BM per report from aide. Original Note: PT HAS NOT HAD A BM IN 4 DAYS. PRN SUPPOSITORY OFFERED,PT REFUSED STATED HE WOULD LIKE TO TRY THE PRUNE JUICE AND BUTTER FIRST.
[2023-08-01 11:39] LABS: Bedside Glucose 179 mg/dL (74-106)
[2023-08-01 16:37] LABS: Bedside Glucose 121 mg/dL (74-106)
--- NOTE | 2023-08-01 18:02 | CASEMGMT ---
Social Work SW received [employer] Notice of Medicare Non-Coverage Letter for current [facility] effective 08/03/2023 SW met with patient and at bedside to notify of Notice of Medicare Non-Coverage for current [facility]; effective 08/03/2023; anticipates discharge 08/04/2023. SW reviewed potential home health care services. Patient and declined home health care services and outpatient therapy at this time. SW inquired about DME supports. Patient and declined any needs. Patient's informed SW that the patient has a follow up appointment arranged with PCP in two weeks that the family would like to keep. Patient informed Physician, Dr. Huffman at bedside. Patient anticipates discharge 08/04/2023 to home. Discharge: 08/04/2023 home; declined home health care/ outpatient therapy services at this time. HOA Morales
[2023-08-01] MEDS: Gabapentin 300 MG Capsule PO (20:58)
[2023-08-01] MEDS: Doxazosin 4 MG Tablet PO (21:00)
[2023-08-01] MEDS: Pramipexole Di-HCl 0.125 MG Tablet PO (21:00)
[2023-08-01] MEDS: Latanoprost 0.005% 1 Bottle 1 DRP EACH EYE (21:01)
[2023-08-01] MEDS: Sertraline 50 MG Tablet PO (21:01)
[2023-08-01] MEDS: Ezetimibe 10 MG Tablet PO (21:01)
--- NOTE | 2023-08-01 21:18 | PCM.DC.SUM ---
Providers Date of Admission: 07/14/23 Primary Care Physician: Dr. Jennifer Watt MD Reason For Visit: CHF AND DEBILITY Diagnosis Discharge Diagnosis (1) Debility: Status: Acute Code(s): R53.81 - Other malaise (2) Acute respiratory failure with hypoxia: Status: Resolved Code(s): J96.01 - Acute respiratory failure with hypoxia (3) Acute heart failure with preserved ejection fraction (HFpEF): Status: Acute Code(s): I50.31 - Acute diastolic (congestive) heart failure (4) Pericardial effusion: Status: Acute Code(s): I31.39 - Other pericardial effusion (noninflammatory) (5) Pleural effusion: Status: Acute Code(s): J90 - Pleural effusion, not elsewhere classified (6) Tachy-angus syndrome: Status: Acute Code(s): I49.5 - Sick sinus syndrome (7) Essential hypertension: Status: Chronic Code(s): I10 - Essential (primary) hypertension (8) Stroke with left hemiparesis: Status: Acute (9) BPH (benign prostatic hyperplasia): Status: Acute Code(s): N40.0 - Benign prostatic hyperplasia without lower urinary tract symptoms (10) Hyperlipidemia: Status: Chronic Code(s): E78.5 - Hyperlipidemia, unspecified (11) Neuropathic pain: Status: Acute Code(s): M79.2 - Neuralgia and neuritis, unspecified (12) Diabetes mellitus: Status: Acute Code(s): E11.9 - Type 2 diabetes mellitus without complications (13) Glaucoma: Status: Acute Code(s): H40.9 - Unspecified glaucoma (14) Restless leg syndrome: Status: Acute Code(s): G25.81 - Restless legs syndrome (15) Depression: Status: Acute Code(s): F32.A - Depression, unspecified (16) Atrial fibrillation with rapid ventricular response: Status: Acute Code(s): I48.91 - Unspecified atrial fibrillation Plan 82 year old male with below past medical history hospitalized for acute respiratory failure with hypoxia 2/2 acute HFpEF, complicated by tachy-angus syndrome, atrial fibrillatin with RVR, infection ruled out, admitted to TCU with debility, here for rehabilitation, strengthening, prior to discharge home with . Debility - PT/OT. Pain - Tylenol 1000mg q6 prn pain (1-10). Bowel - senna/colace 1 tablet bid prn, Dulcolax 10mg pr x 1 prn. Adult immunization - Administer pneumonia vaccine, covid vaccine, flu vaccine as appropriate. DVT prophylaxis - Hold, anemia. Atrial fibrillation - Coreg 6.25mg bidcm, Amiodarone 200mg daily. Stroke/Renal atery stent - Plavix 75mg daily. BPH - Finasteride 5mg daily, Doxazosin 4mg qhs. Hyperlipidemia - Zetia 10mg qhs. HFpEF - Coreg 6.25mg bid, Furosemide 40mg daily. Diabetic polyneuropathy - Gabapentin 100mg bid, 300mg qhs. Diabetes Mellitus II - Glargine 18 units qhs. Glaucoma - Latanoprost 1gtt ou mwf. Nutrition - MVI 1 tablet daily. Restless leg syndrome - Mirapex 0.125mg qhs. 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 Medications at Discharge Home Medications multivitamin,sn-byxk-lrftumpo (Complete Multivitamin tablet) 1 tab PO QDAY supplement 03/03/17 Handicap Placard #1 ea 02/12/21 latanoprost 0.005 % eye drops 1 drp EACH EYE .COMPLEX eyes 02/24/22 clopidogrel 75 mg tablet (Plavix) 75 mg PO DAILY blood thinner #90 tabs 06/07/22 pen needle, diabetic 32 gauge x (BD Sanaz 2nd Gen Pen Needle) #50 ea 06/17/22 furosemide 40 mg tablet (Lasix) 40 mg PO DAILY water pill #90 tabs 11/26/22 pramipexole 0.125 mg tablet 0.125 mg PO QHS parkinsons #90 tabs 12/24/22 insulin lispro 100 unit/mL subcutaneous pen (Humalog KwikPen (U-100) Insulin) 1 unit (0.01 mL) subcut TIDAC PRN SLIDING SCALE #15 mL 01/10/23 sertraline 50 mg tablet 50 mg PO QHS mood #90 tabs 02/23/23 ezetimibe 10 mg tablet (Zetia) 10 mg PO QHS cholesterol #90 tabs 05/04/23 gabapentin 100 mg capsule 100 mg PO BID pain #180 caps 05/04/23 gabapentin 300 mg capsule 300 mg PO 2100 pain #90 caps 05/04/23 finasteride 5 mg tablet 5 mg PO DAILY Urinary Retention 07/09/23 doxazosin 4 mg tablet 4 mg PO QHS Urinary Retention #30 tabs 07/14/23 insulin glargine-yfgn 100 unit/mL (3 mL) subcutaneous pen 18 unit (0.18 mL) subcut BREAKFAST Diabetes #15 mL 07/14/23 amiodarone 200 mg tablet 200 mg PO DAILY 30 days #30 tabs 08/01/23 carvedilol 3.125 mg tablet 3.125 mg PO BIDCM 30 days #60 tabs 08/01/23 hydralazine 50 mg tablet 50 mg PO TID 30 days #90 tabs 08/01/23 potassium chloride 20 mEq tablet,extended release(part/cryst) 20 meq PO DAILYCM 30 days #30 tabs 08/01/23 Hospital Course Operations None Procedures None Summary of Care Provided Minutes Spent on Discharge: 35 Hospital Course: 82 year old male with below past medical history hospitalized for acute respiratory failure with hypoxia 2/2 acute HFpEF, complicated by tachy-angus syndrome, atrial fibrillation with RVR, infection ruled out, admitted to TCU with debility, here for rehabilitation, strengthening, prior to discharge home with . Discharge home with 08/04/2023, No needs. Physical Exam Const alert General Appearance: cooperative HEENT normocephalic Eyes PERRL and EOMs intact bilaterally Neck supple, no JVD and no carotid bruits Resp normal respiratory effort, normal air movement and clear to auscultation bilaterally Cardio regular rate and regular rhythm GI normal to inspection, nondistended, normoactive bowel sounds, non-tender and non-distended Extremity normal capillary refill General Extremity: Negative for edema Skin no rashes or lesions noted General Skin Exam: no breakdown Psych affect normal Appearance: appropriate Weight / BMI Weight Weight: 83.642 kg Body Mass Index (BMI) 25.0 ABG / Lab / Microbiology Data 07/29/23 05:27 07/29/23 05:27 Laboratory: Laboratory Results - last 24 hr 07/31/23 21:36: POC Glucose 121 H 08/01/23 06:25: POC Glucose 131 H 08/01/23 11:13: POC Glucose 179 H 08/01/23 16:11: POC Glucose 121 H D/C Instructions Discharge Diet: No restrictions Discharge Activity: Return to Normal Activity, May Shower and Use Walker Weight Bearing Status: Weight bearing as tolerated Call your doctor if you observe: Fever of 101 or Higher, Inability to urinate, Inability to have a bowel movement, Shortness of breath, Dizziness, Fainting spells, Swelling in the ankles, Chest pain and Uncontrolled pain Additional Instructions: Discharge home with 08/04/2023, No needs. Meaningful Use Info Meaningful Use Meaningful Use Diagnoses (Choose all that apply): None applicable Ischemic Stroke Statin Dosing Therapy Reference: STATIN DOSE THERAPY REFERENCE: * Patients > 75 years receive moderate or high dose statin therapy. * Patients 75 years or YOUNGER should receive HIGH intensity statin dose unless contraindicated. You will be required to document reason for non-treatment if statin daily dose does not meet guidelines. HIGH DOSE STATIN THERAPY DAILY Atorvastatin > than or = to 40 mg Rosuvastatin > than or = to 20 mg Amlodipine + Atorvastatin > than or = to 2.5/40 mg Ezetimibe + Simvastatin 10/80 mg Simvastatin 80mg Discharge Plan Admission Admit Date/Time: 07/14/23 14:30 Primary Reason for Your Visit: Debility. Attending Provider: Johnathan Huffman Chi Primary Care Provider: Jennifer Watt Instructions Additional Instructions / Restrictions: Discharge home with 08/04/2023, No needs. Discharge Orders/Prescriptions Prescriptions: New amiodarone 200 mg Tablet 200 mg PO DAILY 30 Days Qty: 30 0RF carvedilol 3.125 mg Tablet 3.125 mg PO BIDCM 30 Days Qty: 60 0RF potassium chloride 20 mEq Tablet,Er Particles/Crystals 20 meq PO DAILYCM 30 Days Qty: 30 0RF hydralazine 50 mg Tablet 50 mg PO TID 30 Days Qty: 90 0RF Continued multivitamin,we-nmyn-eyolgain [Complete Multivitamin] tablet 1 tab PO QDAY latanoprost 0.005 % drops 1 drp EACH EYE .COMPLEX Patient Comments: M-W-F Rx Instructions: 1 drp into Each EYE mwf; @hs finasteride 5 mg tablet 5 mg PO DAILY insulin glargine-yfgn 100 unit/mL (3 mL) Insulin Pen 18 unit subcut BREAKFAST Qty: 15 2RF doxazosin 4 mg Tablet 4 mg PO QHS Qty: 30 2RF clopidogrel [Plavix] 75 mg tablet 75 mg PO DAILY Qty: 90 3RF furosemide [Lasix] 40 mg tablet 40 mg PO DAILY Qty: 90 3RF pramipexole 0.125 mg tablet 0.125 mg PO QHS Qty: 90 3RF insulin lispro [Humalog KwikPen Insulin] 100 unit/mL insulin pen 1 unit subcut TIDAC PRN (Reason: SLIDING SCALE) Qty: 15 3RF sertraline 50 mg tablet 50 mg PO QHS Qty: 90 3RF ezetimibe [Zetia] 10 mg tablet 10 mg PO QHS Qty: 90 3RF Rx Instructions: take at bedtime gabapentin 100 mg capsule 100 mg PO BID Qty: 180 3RF gabapentin 300 mg capsule 300 mg PO 2100 Qty: 90 3RF Discontinued amiodarone 200 mg Tablet 200 mg PO DAILY Qty: 30 2RF carvedilol 6.25 mg tablet 6.25 mg PO BID Qty: 60 11RF Rx Instructions: must administer with a meal/food No Action (DME) Handicap Placard See Rx Instructions .Route .MEDSUPPLY Qty: 1 0RF Rx Instructions: Length of time: 5 years (DME) pen needle, diabetic [BD Sanaz 2nd Gen Pen Needle] 32 gauge x 5/32 needle See Rx Instructions .ROUTE .MEDSUPPLY Qty: 50 2RF Rx Instructions: use once daily to adminster insulin as directed. Referrals / Follow Up: Jennifer Watt MD [Primary Care Provider] - Disposition Disposition (needs filled in before D/C Order can be placed): Home, Self Care
[2023-08-01 21:36] LABS: Bedside Glucose 113 mg/dL (74-106)
[2023-08-02] VITALS (8 sets, daily range): BP systolic 111–163; BP diastolic 56–70; PULSE 57–66; RESP 16–18; TEMP 36.3; O2SAT 93–95; BMI 25.0
[2023-08-02] MEDS: hydrALAZINE 50 MG Tablet PO ×3 (05:17→21:59)
[2023-08-02 06:29] LABS: Bedside Glucose 122 mg/dL (74-106)
[2023-08-02] MEDS: Insulin Lispro 100 UNIT/ML INSULN.PEN SC ×3 (07:45→17:49)
[2023-08-02] MEDS: Carvedilol 3.125 MG TABLET PO ×2 (07:46→17:49)
[2023-08-02] MEDS: Amiodarone 200 MG Tablet PO (07:47)
[2023-08-02] MEDS: Multivitamins,Ther W-Minerals Tablet 1 TABLET PO (07:47)
[2023-08-02] MEDS: Nystatin Powder 15gm Bottle 1 APPLIC TOPICAL ×2 (07:47→22:01)
[2023-08-02] MEDS: Furosemide 40 MG Tablet PO (07:47)
[2023-08-02] MEDS: Potassium Chloride Oral Tablet 20 MEQ PO (07:47)
[2023-08-02] MEDS: Clopidogrel Bisulfate 75 MG Tablet PO (07:48)
[2023-08-02] MEDS: Finasteride 5 MG Tablet PO (07:48)
[2023-08-02] MEDS: Gabapentin 100 MG Capsule PO ×2 (07:50→17:49)
[2023-08-02] MEDS: Insulin Glargine-YFGN 100 UNIT/ML Pen 18 UNIT SC (07:52)
[2023-08-02 11:15] LABS: Bedside Glucose 156 mg/dL (74-106)
[2023-08-02 17:25] LABS: Bedside Glucose 121 mg/dL (74-106)
[2023-08-02 21:27] LABS: Bedside Glucose 138 mg/dL (74-106)
[2023-08-02] MEDS: Gabapentin 300 MG Capsule PO (21:58)
[2023-08-02] MEDS: Doxazosin 4 MG Tablet PO (22:00)
[2023-08-02] MEDS: Pramipexole Di-HCl 0.125 MG Tablet PO (22:00)
[2023-08-02] MEDS: Ezetimibe 10 MG Tablet PO (22:01)
[2023-08-02] MEDS: Sertraline 50 MG Tablet PO (22:02)
[2023-08-03] VITALS (7 sets, daily range): BP systolic 126–166; BP diastolic 52–64; PULSE 55–61; RESP 17; TEMP 36.4; O2SAT 96; BMI 25.1
[2023-08-03] MEDS: hydrALAZINE 50 MG Tablet PO ×3 (05:12→21:49)
[2023-08-03 06:34] LABS: Bedside Glucose 116 mg/dL (74-106)
[2023-08-03] MEDS: Insulin Lispro 100 UNIT/ML INSULN.PEN SC ×2 (08:03→11:55)
[2023-08-03] MEDS: Carvedilol 3.125 MG TABLET PO ×2 (08:03→17:55)
[2023-08-03] MEDS: Potassium Chloride Oral Tablet 20 MEQ PO (08:04)
[2023-08-03] MEDS: Multivitamins,Ther W-Minerals Tablet 1 TABLET PO (08:04)
[2023-08-03] MEDS: Insulin Glargine-YFGN 100 UNIT/ML Pen 18 UNIT SC (08:04)
[2023-08-03] MEDS: Amiodarone 200 MG Tablet PO (08:04)
[2023-08-03] MEDS: Furosemide 40 MG Tablet PO (08:05)
[2023-08-03] MEDS: Finasteride 5 MG Tablet PO (08:05)
[2023-08-03] MEDS: Clopidogrel Bisulfate 75 MG Tablet PO (08:05)
[2023-08-03] MEDS: Gabapentin 100 MG Capsule PO ×2 (08:07→17:55)
[2023-08-03] MEDS: Nystatin Powder 15gm Bottle 1 APPLIC TOPICAL ×2 (08:15→21:48)
[2023-08-03 11:18] LABS: Bedside Glucose 171 mg/dL (74-106)
[2023-08-03 17:57] LABS: Bedside Glucose 87 mg/dL (74-106)
[2023-08-03 21:41] LABS: Bedside Glucose 256 mg/dL (74-106)
[2023-08-03] MEDS: Ezetimibe 10 MG Tablet PO (21:48)
[2023-08-03] MEDS: Doxazosin 4 MG Tablet PO (21:48)
[2023-08-03] MEDS: Pramipexole Di-HCl 0.125 MG Tablet PO (21:48)
[2023-08-03] MEDS: Sertraline 50 MG Tablet PO (21:48)
[2023-08-03] MEDS: Latanoprost 0.005% 1 Bottle 1 DRP EACH EYE (21:48)
[2023-08-03] MEDS: Gabapentin 300 MG Capsule PO (21:49)
[2023-08-04 05:26] VITALS: BMI 25.1
[2023-08-04 06:08] VITALS: BP 144/63; PULSE 63
[2023-08-04] MEDS: hydrALAZINE 50 MG Tablet PO ×2 (06:08→13:02)
[2023-08-04 06:24] LABS: Bedside Glucose 137 mg/dL (74-106)
[2023-08-04 06:53] VITALS: PULSE 63; O2SAT 92
[2023-08-04] MEDS: Insulin Lispro 100 UNIT/ML INSULN.PEN SC ×2 (07:58→11:32)
[2023-08-04] MEDS: Potassium Chloride Oral Tablet 20 MEQ PO (08:01)
[2023-08-04] MEDS: Insulin Glargine-YFGN 100 UNIT/ML Pen 18 UNIT SC (08:01)
[2023-08-04] MEDS: Carvedilol 3.125 MG TABLET PO (08:01)
[2023-08-04] MEDS: Clopidogrel Bisulfate 75 MG Tablet PO (08:02)
[2023-08-04] MEDS: Finasteride 5 MG Tablet PO (08:02)
[2023-08-04] MEDS: Furosemide 40 MG Tablet PO (08:02)
[2023-08-04] MEDS: Multivitamins,Ther W-Minerals Tablet 1 TABLET PO (08:02)
[2023-08-04] MEDS: Amiodarone 200 MG Tablet PO (08:02)
[2023-08-04] MEDS: Gabapentin 100 MG Capsule PO (08:09)
[2023-08-04] MEDS: Nystatin Powder 15gm Bottle 1 APPLIC TOPICAL (08:09)
[2023-08-04 08:13] VITALS: BP 155/53; PULSE 67
--- NOTE | 2023-08-04 08:30 | CASEMGMT ---
Social Work Discharge SW met with patient at bedside to complete discharge MDS. Patient BIM () and PhQ-2 (). SW inquired about any supportive services and assessed for needs. Patient declined any services at this time. Patient's to provide transportation home. Discharge: Home; No Needs. HOA Morales
[2023-08-04 11:24] LABS: Bedside Glucose 210 mg/dL (74-106)
[2023-08-04 12:50] VITALS: BP 141/50; PULSE 58; RESP 18; TEMP 36.6; O2SAT 95
[2023-08-04 13:02] VITALS: BP 141/50; PULSE 58
== END 2023-08-04 13:40 | disposition home or self-care (01) | DRG 291 ==
PROVIDERS: Admitting Provider Family Medicine Geriatric Medicine; PCP Internal Medicine; Referring Provider Family Medicine Geriatric Medicine; Visit Provider Family Medicine Geriatric Medicine
DX: I11.0 Hypertensive heart disease with heart failure (principal); I50.31 Acute diastolic (congestive) heart failure; I31.39 Other pericardial effusion (noninflammatory); I69.354 Hemiplegia and hemiparesis following cerebral infarction affecting left non-dominant side; I49.5 Sick sinus syndrome; E11.39 Type 2 diabetes mellitus with other diabetic ophthalmic complication; I48.91 Unspecified atrial fibrillation; G25.81 Restless legs syndrome; E11.42 Type 2 diabetes mellitus with diabetic polyneuropathy; Z79.4 Long term (current) use of insulin; F32.A Depression, unspecified; E78.5 Hyperlipidemia, unspecified; N40.0 Benign prostatic hyperplasia without lower urinary tract symptoms; H40.9 Unspecified glaucoma; Z79.899 Other long term (current) drug therapy; Z79.02 Long term (current) use of antithrombotics/antiplatelets
CPT/HCPCS: 36415; 71046; 80048; 82962; 85025; 97110; 97116; 97162; 97166; 97530; 97535; 97802

== ENCOUNTER → 2023-09-07 | Outpatient (CLI) | payer MEDICARE, SELFPAY ==
[2023-09-07 13:54] LABS: Bacteria 0 SEEN /hpf (None Seen); Mucous, Urine 0 SEEN /hpf (<or=2+); Squamous Epithelial Cells - UA 0 SEEN /hpf (0-5); White Blood Cells 0 SEEN /hpf (0-5)
[2023-09-07 15:29] LABS: Color, Urine Yellow (Yellow); Glucose, Dipstick Normal (Normal); Ketone-Dipstick Negative (Negative); Leukocyte Esterase-Dipstick Negative /ul (Negative); Nitrite-Dipstick Negative (Negative); Occult Blood-Urine Negative /ul (Negative); Protein-Dipstick 30 mg/dl (Negative); Specific Gravity, Urine 1.005 (1.002-1.030); Urine Bilirubin Dipstick Negative (Negative); Urine Clarity Clear (Clear); Urine Urobilinogen Normal (Normal); Urine pH 6.5 (5.0 - 8.0)
[2023-09-07 15:42] LABS: Red Blood Cells-Urine 0-5 SEEN /hpf (0-5)
== END | disposition home or self-care (01) ==
PROVIDERS: PCP Internal Medicine; Referring Provider Internal Medicine; Visit Provider Internal Medicine
DX: N39.0 Urinary tract infection, site not specified (principal)
CPT/HCPCS: 81001; 87086

== ENCOUNTER 2023-09-30 12:17 | Outpatient (CLI) | payer MEDICARE, SELFPAY ==
[2023-09-30 12:31] VITALS: BP 154/54; PULSE 61; RESP 16; TEMP 35.8; O2SAT 95; BMI 24.1
[2023-09-30] MEDS: Iron Sucrose Complex 300 MG in 0.9% Normal Saline (250mL Bag) 250 ML 177 MG IV (12:48)
== END 2023-09-30 23:59 | disposition home or self-care (01) ==
LOC: MEDOUTP 12:17
PROVIDERS: PCP Internal Medicine; Referring Provider Psychiatry & Neurology Neurology; Visit Provider Psychiatry & Neurology Neurology
DX: N18.4 Chronic kidney disease, stage 4 (severe) (principal); R53.82 Chronic fatigue, unspecified; D50.9 Iron deficiency anemia, unspecified; D63.1 Anemia in chronic kidney disease
CPT/HCPCS: 96365; 96366; J1756; J7050; A4216

== ENCOUNTER 2023-10-14 12:11 | Outpatient (CLI) | payer MEDICARE, SELFPAY ==
[2023-10-14 12:23] VITALS: BP 162/58; PULSE 65; RESP 16; TEMP 36.6; O2SAT 94
[2023-10-14] MEDS: 0.9% NaCl Peripheral Flush Adult/Peds IV (12:34)
[2023-10-14] MEDS: Iron Sucrose Complex 300 MG in 0.9% Normal Saline (250mL Bag) 250 ML 177 MG IV (12:56)
[2023-10-14 14:41] VITALS: BP 147/58; PULSE 60; RESP 16; TEMP 36.7; O2SAT 96
== END 2023-10-14 23:59 | disposition home or self-care (01) ==
LOC: MEDOUTP 12:12
PROVIDERS: PCP Internal Medicine; Referring Provider Psychiatry & Neurology Neurology; Visit Provider Psychiatry & Neurology Neurology
DX: D50.9 Iron deficiency anemia, unspecified (principal); R53.82 Chronic fatigue, unspecified
CPT/HCPCS: 96365; 96366; J1756; J7050; A4216

== ENCOUNTER 2023-10-28 12:53 | Outpatient (CLI) | payer MEDICARE, SELFPAY ==
[2023-10-28 13:12] VITALS: BP 144/61; PULSE 60; RESP 16; TEMP 36.1; O2SAT 93; BMI 23.8
[2023-10-28] MEDS: 0.9% NaCl Peripheral Flush Adult/Peds IV (13:14)
[2023-10-28] MEDS: 0.9% Normal Saline (100mL Bag) 100 ML 15 ML IV (13:14)
[2023-10-28] MEDS: Iron Sucrose Complex 300 MG in 0.9% Normal Saline (250mL Bag) 250 ML 177 MG IV (13:18)
[2023-10-28 15:09] VITALS: BP 147/53; PULSE 60; RESP 16
== END 2023-10-28 23:59 | disposition home or self-care (01) ==
LOC: MEDOUTP 12:53
PROVIDERS: PCP Internal Medicine; Referring Provider Psychiatry & Neurology Neurology; Visit Provider Psychiatry & Neurology Neurology
DX: R53.82 Chronic fatigue, unspecified (principal); D50.9 Iron deficiency anemia, unspecified
CPT/HCPCS: 96365; 96366; J1756; J7050; A4216

== ENCOUNTER → 2023-11-15 | Outpatient (CLI) | payer MEDICARE, SELFPAY ==
[2023-11-15 17:47] LABS: Absolute Lymphocyte Count 1.31 X10^3/uL (0.83-4.51); Absolute Neutrophil Count 5.9 X10^3/uL (2.0-7.7); Basophil# 0.09 X10^3/uL; Basophil% 1.1 % (0-1); Eosinophil# 0.28 X10^3/uL; Eosinophils% 3.4 % (0-5); Hematocrit 37.5 % (40-54); Hemoglobin 12.2 g/dL (13.0-16.5); Lymphocyte # 1.31 X10^3/ul (0.83-4.51); Lymphocyte % 15.8 % (19-41); Mean Corp Hgb Conc 32.5 g/dL (32-36); Mean Corpuscular Hgb 29.6 pg (27.0-32.0); Mean Platelet Vol. 10.9 fl (6.2-12.0); Monocyte# 0.73 X10^3/uL; Monocyte% 8.8 % (0-10); NRBC Flagged by Analyzer 0 % (0-5); Neutrophil # 5.87 X10^3/uL (2.7-7.7); Neutrophil % 70.7 % (47-70); Platelet Count 207 K/mm3 (150-450); RBC Distribution Width CV 16.7 % (11.6-14.6); RBC Distribution Width SD 55.6 fl (35.1-43.9); Red Blood Count 4.12 M/mm3 (4.6-6.2); White Blood Count 8.3 K/mm3 (4.4-11.0)
[2023-11-15 18:28] LABS: Vitamin D,25 Hydroxy 48.4 ng/mL
[2023-11-15 18:28] LABS: Ferritin 705 ng/mL (26-388); Iron 42 ug/dL (65-175)
[2023-11-15 18:30] LABS: Hemoglobin A1c 6.2 % (3.8-5.6)
[2023-11-15 18:41] LABS: AST(SGOT) 15 U/L (15-37); Alanine Aminotransfer ALT/SGPT 16 U/L (16-61); Albumin, Serum 3.5 g/dL (3.2-5.0); Alkaline Phosphatase 68 U/L (45-117); Anion Gap 9 (5-15); BUN 28 mg/dL (7-18); BUN/Creat Ratio 14.7 RATIO (10-20); Calcium,Total 9.2 mg/dL (8.5-10.1); Chloride 102 mmol/L (98-107); Cholesterol 142 mg/dL (200); Creatinine, Serum 1.91 mg/dL (0.70-1.30); EST Glomerular Filtration Rate 36 mL/min (>60); Est Glom Filt Rate - Afr Amer 43 mL/min (>60); Globulin 3.5 g/dL (2.2-4.2); Glucose 170 mg/dL (74-106); High Density Lipoprotein 32 mg/dL; Magnesium 2.2 mg/dL (1.6-2.6); Potassium 3.1 mmol/L (3.5-5.1); Sodium Level 142 mmol/L (136-145); Triglycerides 238 mg/dL; Very Low Density Lipoprotein 48 mg/dL (5-40)
== END | disposition home or self-care (01) ==
LOC: MTLAB 15:01
PROVIDERS: Psychiatry & Neurology Neurology; PCP Internal Medicine; Referring Provider Internal Medicine; Visit Provider Internal Medicine
DX: Z13.220 Encounter for screening for lipoid disorders (principal); I48.0 Paroxysmal atrial fibrillation; E11.22 Type 2 diabetes mellitus with diabetic chronic kidney disease; N18.32 Chronic kidney disease, stage 3b; E55.9 Vitamin D deficiency, unspecified; E78.5 Hyperlipidemia, unspecified; I12.9 Hypertensive chronic kidney disease with stage 1 through stage 4 chronic kidney disease, or unspecified chronic kidney disease; D50.9 Iron deficiency anemia, unspecified; Z86.2 Personal history of diseases of the blood and blood-forming organs and certain disorders involving the immune mechanism
CPT/HCPCS: 36415; 80053; 80061; 82306; 82728; 83036; 83540; 83735; 84443; 85025

== ENCOUNTER 2023-12-10 18:40 | Inpatient (IN) | payer MEDICARE, SELFPAY ==
[2023-12-10 18:42] VITALS: BP 186/71; PULSE 70; RESP 18; TEMP 36.1; O2SAT 97
--- NOTE | 2023-12-10 21:18 | ED.VIS.FALL ---
HPI HPI - Fall History of Present Illness Chief Complaint: Fall PFSH PFS Medical History PAF (paroxysmal atrial fibrillation) CHF (congestive heart failure) Anemia Weakness Wears glasses Depression Rash Insulin dependent diabetes mellitus Walker as ambulation aid Prostate disease Low iron Restless legs Stroke/cerebrovascular accident Dietary restriction Non-smoker BiPAP (biphasic positive airway pressure) dependence History of edema History of echocardiogram Cardiology follow-up encounter BPH (benign prostatic hyperplasia) Congestive heart failure Pneumonia Incontinence Limb weakness Unsteadiness Chronic anemia Hypertension Coronary artery disease Right renal artery stenosis Fatigue Ventricular tachycardia seen on cardiac tech (02/20/21) Peripheral vascular occlusive disease Type 2 diabetes mellitus Hyperlipidemia Essential hypertension History of CVA (cerebrovascular accident) (12/2020) Obstructive Sleep Apnea-Hypopnea Syndrome Absent pedal pulses Skin lesion of face Normocytic normochromic anemia Depression Dysphagia Proteinuria due to type 2 diabetes mellitus Facial droop due to acute stroke Acute left-sided muscle weakness Osteoarthritis Right pontine CVA Recurrent inguinal hernia of right side without obstruction or gangrene Home Medications ?Medication ?Instructions ?Recorded ?Last Taken ?Type multivitamin,tn-cshe-esldliiz 1 tab PO QDAY supplement 03/03/17 01/11/23 History (Complete Multivitamin tablet) Handicap Placard #1 ea 02/12/21 Unknown Rx latanoprost 0.005 % eye drops 1 drp EACH EYE .COMPLEX eyes 02/24/22 01/10/23 History pen needle, diabetic 32 gauge x #50 ea 06/17/22 Unknown Rx (BD Sanaz 2nd Gen Pen Needle) sertraline 50 mg tablet 50 mg PO QHS mood #90 tabs 02/23/23 Unknown Rx ezetimibe 10 mg tablet (Zetia) 10 mg PO QHS cholesterol #90 tabs 05/04/23 Unknown Rx gabapentin 100 mg capsule 100 mg PO BID pain #180 caps 05/04/23 Unknown Rx gabapentin 300 mg capsule 300 mg PO 2100 pain #90 caps 05/04/23 Unknown Rx potassium chloride 20 mEq 20 meq PO DAILYCM 30 days #30 tabs 08/01/23 Unknown Rx tablet,extended release(part/cryst) clopidogrel 75 mg tablet (Plavix) 75 mg PO DAILY blood thinner #90 08/12/23 Unknown Rx tabs amiodarone 200 mg tablet 100 mg (1/2 x 200 mg) PO DAILY #45 08/16/23 Unknown Rx tabs furosemide 40 mg tablet 40 mg PO DAILY #90 TABLETS 08/22/23 Unknown Rx hydralazine 100 mg tablet 100 mg PO TID #270 tabs 09/22/23 Unknown Rx iron sucrose 200 mg iron/10 mL 300 mg (15 mL) .Route .COMPLEX #15 09/22/23 Unknown Rx intravenous solution (Venofer) mL insulin lispro 100 unit/mL 1 unit (0.01 mL) subcut TIDAC PRN 10/13/23 Unknown Rx subcutaneous pen (Humalog KwikPen SLIDING SCALE #15 mL (U-100) Insulin) oxybutynin chloride 15 mg 15 mg PO DAILY 10/28/23 Unknown History tablet,extended release 24 hr pramipexole 0.125 mg tablet 0.125 mg PO QHS parkinsons #90 tabs 11/08/23 Unknown Rx doxazosin 4 mg tablet 4 mg PO QHS Urinary Retention #30 11/15/23 Unknown Rx tabs insulin glargine-yfgn 100 unit/mL 18 unit (0.18 mL) subcut BREAKFAST 11/23/23 Unknown Rx (3 mL) subcutaneous pen Diabetes #15 mL Allergy/AdvReac Type Severity Reaction Status Date / Time meloxicam (From Mobic) Allergy Intermediate itching Verified 12/10/23 18:42 pravastatin (From Pravachol) AdvReac Mild myalgia Verified 12/10/23 18:42 cholestyramine AdvReac hypoglycemi Verified 12/10/23 18:42 a Family History Mother Hypertension Cancer Father Heart disease Diabetes Surgical History History of prostate surgery H/O transurethral resection of prostate (01/12/23) Hx of cystoscopy Hx of total knee arthroplasty History of hydrocelectomy History of cataract surgery History of lumbar laminectomy History of herniorrhaphy History of stent insertion of renal artery (08/05/21) Social History household members: spouse and other details: Abigail is his 's name housing: house number of children: 2 current occupational status: retired and other details: worked for [employer] prior to retiring leisure activities: other Smoking Status: Never smoker Electronic Cigarette Use: not used second hand exposure: No alcohol intake: former substance use type: does not use what type of physical activity do you participate in: walking frequency: 1-2 times per week inés/christianity: None seatbelt use: always EXAM Physical Exam Const Vital Signs: 12/10/23 18:42 12/10/23 22:00 12/10/23 22:00 Temperature 97 F L Temperature Source Temporal Pulse Rate 70 66 Respiratory Rate 18 18 Respiratory Effort Normal Blood Pressure 186/71 H 194/75 H Blood Pressure Mean 109 114 Pulse Ox 97 97 Oxygen Delivery Method Room Air Room Air Room Air MDM MDM MDM Narrative Medical decision making narrative: HISTORY OF PRESENT ILLNESS: 83-year-old male presents with a fall. He has a significant past medical history including BPH, CHF, CVA (left-sided deficits), hyperlipidemia, type 2 diabetes, peripheral vascular disease. Notes mechanical fall prior to arrival notes he hit his head. Notes left hip pain. Notes he takes Plavix. Denies any other anticoagulants REVIEW OF SYSTEMS: Pertinent positives: Head injury, left hip pain Pertinent negatives: Numbness weakness, chest pain, shortness of breath, cough, urinary complaints PHYSICAL EXAM: Nursing triage notes reviewed, Vital signs reviewed Primary Survey Airway: Intact Breathing: Bilateral breath sounds Circulation: Palpable bilateral femorals, Palpable bilateral radial, Palpable bilateral DP and Palpable bilateral PT Disability / Spine precautions GCS Score: Eye Openin Verbal Response: 5 Motor Response: 6 Secondary Survey Constitutional: Please see MDM Head: Atraumatic, Midface stable, NO jaw malocclusion, No Cephalohematoma, and No Lacerations noted Eye: Pupils equal round and reactive to light, Extraocular muscles intact and No periorbital ecchymosis or stepoff, no evidence of entrapment ENT: Oropharynx clear, no lacerations, no hemotympanum, no raccoon eyes or min sign Cervical spine / Neck: No cervical spine bony tenderness, crepitance, or stepoff deformity Trachea midline Lungs: Clear to auscultation, No asymmetric rise and No crepitus, no flail chest Cardiac: Regular rate and rhythm and No murmurs Abdomen: Soft, Nontender and No rebound Pelvis: Pelvis stable to compression : No evidence of genital injury Back: No midline bony tenderness to thoracic/lumbar/sacral spines Neuro: At baseline, intact strength and sensation in bilateral upper and lower extremities. 2+ patellar reflexes bilaterally. Extremities:Left hip TTP, obvious shortening and slight internal rotation of the left hip Psych: Normal affect Nursing triage notes reviewed, Vital signs reviewed MEDICAL DECISION MAKING: Chief Complaint: Fall External records reviewed: Reviewed prior medications, reviewed past medical problems, reviewed allergies Factors affecting care: Atrial fibrillation, hyperlipidemia, hypertension, type 2 diabetes, CKD, CVA, peripheral vascular Social determinants of health: none History obtained from others: The patient's Consults: Orthopedic surgery (Dr. Tobin), internal medicine (Dr. Laguerre) MDM Narrative: Patient was initially the patient was initially hypertensive with a blood pressure 186/71 otherwise afebrile, nontoxic-appearing I considered the following differential diagnosis: fracture dislocation, ICH, cervical spine injury, left hip I obtained a broad imaging workup to further elucidate etiology of patient complaints ALL IMAGES (IF OBTAINED) HAVE BEEN PERSONALLY REVIEWED AND INTERPRETED BY MYSELF. CT scan of the head and cervical spine are negative for acute traumatic injury X-ray left hip was read/reviewed by myself shows evidence of left hip fracture Given hip fracture patient was admitted for pain control and to await orthopedic surgery consultation The patient and/or family, caregivers express understanding. The patient and/or family, caregivers agrees with the plan. Shared decision making: I will have a discussion with the patient and or visitors regarding risk/benefits of further testing or admission. They will be made aware of of the risk/benefits inherent in this decision they will be given the opportunity to voice understanding. Total critical care time today provided was at least 0 minutes. This excludes separately billable procedures. Critical care time (if documented) is secondary to the patient having high probability of clinically significant/life threatening deterioration in the patient's condition which required my urgent intervention. Impression: 1. Fall 2. Closed head injury 3. Acute left hip fracture Dispo: Admit to [facility] This note was generated with [employer] dictation software. It may contain incorrect words, spelling, and punctuation that were not noted in review of the chart prior to signing. Radiography Diagnostic Testing: Clinical Impression(s) from Imaging Studies Brain CT 12/10/23 22:20 IMPRESSION: Chronic involutional changes of the brain. Electronically Signed: Rafa Lowery MD at 22:39 EDT , Cervical Spine CT 12/10/23 22:20 IMPRESSION: Multilevel degenerative changes, as described above. No acute fracture or subluxation. Electronically Signed: Rafa Lowery MD at 22:43 EDT , Discharge Plan Disposition Disposition: Acute Care Hospital [facility] Discharge Date/Time: 12/11/23 00:15
[2023-12-10 22:00] VITALS: BP 194/75; PULSE 66; RESP 18; O2SAT 97; BMI 25.6
--- NOTE | 2023-12-10 22:20 | CT_ITS ---
STUDY: CT BRAIN WITHOUT CONTRAST REASON FOR EXAM: Male, 83 years old. FALL. HIT HEAD RADIATION DOSAGE (If Supplied By Facility): CTDIvol = ( 44.99 ) mGy, DLP = ( 880.47 ) mGycm TECHNIQUE: Transaxial CT imaging of the brain was performed without administration of intravenous contrast material. Individualized dose optimization techniques were used for this CT. COMPARISON: 02/24/2022 FINDINGS: Normal soft tissue structures. Normal calvarium. There is moderate cerebral atrophy with widening of the extra-axial spaces and ventricular dilatation. There are areas of decreased attenuation within the white matter tracts of the supratentorial brain, consistent with microvascular disease changes. Normal basal ganglia and thalami. Normal brainstem. Normal cerebellum. There is no intracranial hemorrhage. There are no findings of an acute ischemic infarction. Normal visualized paranasal sinuses. CT/Brain/Head without Contrast IMPRESSION: Chronic involutional changes of the brain. Electronically Signed: Rafa Lowery MD at 22:39 EDT ,
--- NOTE | 2023-12-10 22:20 | CT_ITS ---
STUDY: CT CERVICAL SPINE WITHOUT CONTRAST REASON FOR EXAM: Male, 83 years old. FALL HIT HEAD RADIATION DOSAGE (If Supplied By Facility): CTDIvol = ( 24.07 ) mGy, DLP = ( 485.47 ) mGycm TECHNIQUE: High resolution transaxial imaging was performed without contrast material. Sagittal and coronal images were reconstructed. Individualized dose optimization techniques were used for this CT. COMPARISON: None FINDINGS: Normal craniovertebral junction. There are degenerative changes of the anterior atlantoaxial articulation. Normal odontoid process. There is straightening of the normal cervical lordosis. Normal vertebral bodies and posterior osseous elements. C2-3: Mild left facet hypertrophy produces mild left neural foraminal stenosis. No central spinal stenosis. C3-4: Mild left facet hypertrophy produces mild left neural foraminal stenosis. 2 mm of anterolisthesis of C3 on C4 with no central spinal stenosis. C4-5: Mild bilobed disc osteophyte complex produces mild spinal stenosis and mild bilateral neural foraminal stenosis. C5-6: Mild broad disc osteophyte complex and bilateral uncovertebral hypertrophy produces mild spinal stenosis and mild bilateral neural foraminal stenosis. C6-7: Mild broad disc osteophyte complex produces mild spinal stenosis and mild left neural foraminal stenosis. C7-T1: Normal endplates. Normal disc height and morphology. Normal central canal and intervertebral neuroforamina. Normal visualized soft tissue structures. CT/Spine Cervical without Contras IMPRESSION: Multilevel degenerative changes, as described above. No acute fracture or subluxation. Electronically Signed: Rafa Lowery MD at 22:43 EDT ,
--- NOTE | 2023-12-10 22:25 | RAD_ITS ---
STUDY: X-RAY - PELVIS AND LEFT HIP REASON FOR EXAM: Male, 83 years old. PAIN TECHNIQUE: 3 views of the pelvis and hip. COMPARISON: None. FINDINGS: There is a non-specific bowel gas pattern. Normal visualized soft tissue structures. Normal bilateral iliac wings, sacroiliac joints and visualized sacrum. Normal bilateral superior and inferior pubic rami. Normal pubic symphysis. Normal bilateral ischial tuberosities. Acute impacted fracture of the transcervical femoral neck. Normal acetabulum. Normal hip joint. RAD/HIP, UNI W/ Pelvis 2-3 Views IMPRESSION: Acute impacted fracture of the transcervical femoral neck. Electronically Signed: Rafa Lowery MD at 22:45 EDT ,
--- NOTE | 2023-12-10 23:11 | HP.PCM.HOS_ITS ---
[facility] - General General Date of Admission: 12/10/23 Date of Service: 12/10/23 Chief Complaint: Fall at Home onto Left Hip. [facility] Narrative SHAISTA CLOUD, is a 83 M with a past medical history of essential hypertension, hyperlipidemia; on ezetimibe, DM-2; of unknown control, history of diabetic nephropathy with proteinuria, CAD, PAF; on Amiodarone, history of VT (2020), history of CHF, history of Right Pontine CVA; with residual Left-sided weakness on Plavix, PVD, chronic venous stasis of both lower extremities, CKD; stage IIIb, history of Right renal artery stenosis; s/p stent, history of Right inguinal hernia; s/p repair, JOHN; on BiPAP, DONA, overactive bladder, glaucoma, history of cataract surgery, RLS, depression, BPH; s/p TURP (2022) and OA; chronic back pain with previous lumbar laminectomy who presents to [facility] ER complaining of fall at home onto his Left hip. Mr. Cloud reports his symptoms began approximately 1 hour prior to arrival when he was walking and suddenly lost his balance falling onto his Left hip with subsequent severe pain and inability to ambulate. He also admits to hitting his head but he denies loss of consciousness with this fall. There is no report of fever, chills, nausea, vomiting, diarrhea, constipation, chest pain, shortness of breath or palpitations. In the ER he was noted to have radiographic evidence of a Left femoral neck fracture complicated by clinical evidence of uncontrolled hypertension with blood pressure of 194/75 mmHg present on admission with nonacute CT scans of the brain and C-spine and he was then admitted to the general medical floor with telemetric monitoring for ongoing care for stay that expected to extend beyond 2 midnights. [facility] Medical History (Updated 12/11/23 @ 03:[address] Franklin Pradhan, DO) Fall Current use of insulin Back pain due to injury Restless legs Syncope Kidney stones PAF (paroxysmal atrial fibrillation) CHF (congestive heart failure) Anemia Weakness Wears glasses Depression Rash Insulin dependent diabetes mellitus Walker as ambulation aid Prostate disease Low iron Restless legs Stroke/cerebrovascular accident Dietary restriction Non-smoker BiPAP (biphasic positive airway pressure) dependence History of edema History of echocardiogram Cardiology follow-up encounter BPH (benign prostatic hyperplasia) Congestive heart failure Pneumonia Incontinence Limb weakness Unsteadiness Chronic anemia Hypertension Coronary artery disease Right renal artery stenosis Fatigue Ventricular tachycardia seen on school custodian (02/20/21) Peripheral vascular occlusive disease Type 2 diabetes mellitus Hyperlipidemia Essential hypertension History of CVA (cerebrovascular accident) (12/2020) Obstructive Sleep Apnea-Hypopnea Syndrome Absent pedal pulses Skin lesion of face Normocytic normochromic anemia Depression Dysphagia Proteinuria due to type 2 diabetes mellitus Facial droop due to acute stroke Acute left-sided muscle weakness Osteoarthritis Right pontine CVA Recurrent inguinal hernia of right side without obstruction or gangrene Home Medications ?Medication ?Instructions ?Recorded ?Last Taken ?Type multivitamin,[id number] 1 tab PO QDAY supplement 03/03/17 01/11/23 History (Complete Multivitamin tablet) Handicap Placard #1 ea 02/12/21 Unknown Rx latanoprost 0.005 % eye drops 1 drp EACH EYE .COMPLEX eyes 02/24/22 01/10/23 History pen needle, diabetic 32 gauge x #50 ea 06/17/22 Unknown Rx (BD Sanaz 2nd Gen Pen Needle) sertraline 50 mg tablet 50 mg PO QHS mood #90 tabs 02/23/23 Unknown Rx ezetimibe 10 mg tablet (Zetia) 10 mg PO QHS cholesterol #90 tabs 05/04/23 Unknown Rx gabapentin 100 mg capsule 100 mg PO BID pain #180 caps 05/04/23 Unknown Rx gabapentin 300 mg capsule 300 mg PO 2100 pain #90 caps 05/04/23 Unknown Rx potassium chloride 20 mEq 20 meq PO DAILYCM 30 days #30 tabs 08/01/23 Unknown Rx tablet,extended release(part/cryst) clopidogrel 75 mg tablet (Plavix) 75 mg PO DAILY blood thinner #90 08/12/23 Unknown Rx tabs amiodarone 200 mg tablet 100 mg (1/2 x 200 mg) PO DAILY #45 08/16/23 Unknown Rx tabs furosemide 40 mg tablet 40 mg PO DAILY #90 TABLETS 08/22/23 Unknown Rx hydralazine 100 mg tablet 100 mg PO TID #270 tabs 09/22/23 Unknown Rx iron sucrose 200 mg iron/10 mL 300 mg (15 mL) .Route .COMPLEX #15 09/22/23 Unknown Rx intravenous solution (Venofer) mL insulin lispro 100 unit/mL 1 unit (0.01 mL) subcut TIDAC PRN 10/13/23 Unknown Rx subcutaneous pen (Humalog KwikPen SLIDING SCALE #15 mL (U-100) Insulin) oxybutynin chloride 15 mg 15 mg PO DAILY 10/28/23 Unknown History tablet,extended release 24 hr pramipexole 0.125 mg tablet 0.125 mg PO QHS parkinsons #90 tabs 11/08/23 Unknown Rx doxazosin 4 mg tablet 4 mg PO QHS Urinary Retention #30 11/15/23 Unknown Rx tabs insulin glargine-yfgn 100 unit/mL 18 unit (0.18 mL) subcut BREAKFAST 11/23/23 Unknown Rx (3 mL) subcutaneous pen Diabetes #15 mL Allergy/AdvReac Type Severity Reaction Status Date / Time meloxicam (From Mobic) Allergy Intermediate itching Verified 12/10/23 18:42 pravastatin (From Pravachol) AdvReac Mild myalgia Verified 12/10/23 18:42 cholestyramine AdvReac hypoglycemi Verified 12/10/23 18:42 a Family History Mother Hypertension Cancer Father Heart disease Diabetes Surgical History History of prostate surgery H/O transurethral resection of prostate (01/12/23) Hx of cystoscopy Hx of total knee arthroplasty History of hydrocelectomy History of cataract surgery History of lumbar laminectomy History of herniorrhaphy History of stent insertion of renal artery (08/05/21) Social History household members: spouse and other details: Abigail is his 's name housing: house number of children: 2 current occupational status: retired and other details: worked for [employer] prior to retiring leisure activities: other Smoking Status: Never smoker Electronic Cigarette Use: not used second hand exposure: No alcohol intake: former substance use type: does not use what type of physical activity do you participate in: walking frequency: 1-2 times per week inés/taoist: None seatbelt use: always ROS ROS Narrative Review of systems: General: Patient denies fever or chills HENT: Patient admits to hitting his head with fall but he denies headache, denies stuffy nose, denies sore throat EYES: Denies changes in vision or discharge from eyes. Resp: Denies cough, denies shortness of breath Cardiac: Denies chest pain, palpitations or heart racing GI: Denies abdominal pain, denies changes in bowel, denies nausea or vomiting. : Denies changes in urination Extremity: Patient admits to severe persistent Left hip pain after fall. Musculoskeletal: Feels somewhat generally weak and unwell with severe Left hip pain and inability to ambulate. Neuro: Patient has a history of chronic Left-sided weakness that is unchanged from previous. He denies headache, paresthesias or other acute focal neurologic deficits. Heme: Denies any bleeding or bruising Skin: Denies rashes Psychiatric: No complaints voiced related uncontrolled depression or anxiety. Endocrine: No polyuria, polydipsia or polyphagia. The rest of the 14 point ROS was negative except for positives in HPI. Vital Signs Vital Signs Vital Signs: 12/10/23 18:42 12/10/23 22:00 12/10/23 22:00 Temperature 97 F L Temperature Source Temporal Pulse Rate 70 66 Respiratory Rate 18 18 Respiratory Effort Normal Blood Pressure 186/71 H 194/75 H Blood Pressure Mean 109 114 Pulse Ox 97 97 Oxygen Delivery Method Room Air Room Air Room Air Weight Weight: 189 lb Body Mass Index (BMI) 25.6 Physical Exam Const alert, oriented x3, no apparent distress and average body habitus General Appearance: cooperative HEENT normocephalic, head/scalp atraumatic, hearing grossly normal bilaterally and moist oral mucous membranes Eyes PERRL and EOMs intact bilaterally Neck no lymphadenopathy and supple Resp normal respiratory effort, no retractions, no use of accessory muscles and clear to auscultation bilaterally Cardio regular rate and regular rhythm GI normal to inspection, nondistended, normoactive bowel sounds, soft to palpation, non-tender and non-distended Extremity Extremity Narrative: Left lower extremity shortened and externally rotated with 2+ pulses throughout no signs of vascular compromise. Skin Skin Narrative: Patient has no evidence of rash, abscess or jaundice. Neuro oriented x3, CN's II-XII intact bilaterally, moves all extremities and no focal motor deficits Sensorium / Orientation: awake, alert, oriented to person, oriented to place and oriented to time Speech: speech normal Psych affect normal Results Medical Records Data Attestation: I reviewed the patient's medical records Lab / Micro Data Attestation: I reviewed the patient's lab results. 12/11/23 00:00 12/11/23 00:00 Imaging [facility] Imaging Services [address] [place] [address] Brain/Head without Contrast MR#: [id number] Acct: [id number] Name: SHAISTA CLOUD Rep #: [id number] : 1940 83 From: Rafa Lowery MD PCP: Dr. Jennifer Watt MD Status: REG ER Study: Brain/Head without Contrast Date of Exam: 12/10/23 Exam# [id number] Ordering Dr: Sree Teran DO STUDY: CT BRAIN WITHOUT CONTRAST REASON FOR EXAM: Male, 83 years old. FALL. HIT HEAD RADIATION DOSAGE (If Supplied By Facility): CTDIvol = ( 44.99 ) mGy, DLP = ( 880.47 ) mGycm TECHNIQUE: Transaxial CT imaging of the brain was performed without administration of intravenous contrast material. Individualized dose optimization techniques were used for this CT. COMPARISON: 02/24/2022 FINDINGS: Normal soft tissue structures. Normal calvarium. There is moderate cerebral atrophy with widening of the extra-axial spaces and ventricular dilatation. There are areas of decreased attenuation within the white matter tracts of the supratentorial brain, consistent with microvascular disease changes. Normal basal ganglia and thalami. Normal brainstem. Normal cerebellum. There is no intracranial hemorrhage. There are no findings of an acute ischemic infarction. Normal visualized paranasal sinuses. CT/Brain/Head without Contrast IMPRESSION: Chronic involutional changes of the brain. Electronically Signed: Rafa Lowery MD at 22:39 EDT , CC: Dr. Jennifer Watt MD; Dr. Sree Teran DO ~ Sales Support Representative: Signed -------- [facility] Imaging Services [address], [place] [id number] Spine Cervical without Contras MR#: [id number] Acct: [id number] Name: SHAISTA CLOUD Rep #: [id number] : 1940 M 83 From: Rafa Lowery MD PCP: Dr. Jennifer Watt MD Status: [facility] Study: Spine Cervical without Contras Date of Exam: 12/10/23 Exam# [id number] Ordering Dr: Sree Teran DO STUDY: CT CERVICAL SPINE WITHOUT CONTRAST REASON FOR EXAM: Male, 83 years old. FALL HIT HEAD RADIATION DOSAGE (If Supplied By Facility): CTDIvol = ( 24.07 ) mGy, DLP = ( 485.47 ) mGycm TECHNIQUE: High resolution transaxial imaging was performed without contrast material. Sagittal and coronal images were reconstructed. Individualized dose optimization techniques were used for this CT. COMPARISON: None FINDINGS: Normal craniovertebral junction. There are degenerative changes of the anterior atlantoaxial articulation. Normal odontoid process. There is straightening of the normal cervical lordosis. Normal vertebral bodies and posterior osseous elements. C2-3: Mild left facet hypertrophy produces mild left neural foraminal stenosis. No central spinal stenosis. C3-4: Mild left facet hypertrophy produces mild left neural foraminal stenosis. 2 mm of anterolisthesis of C3 on C4 with no central spinal stenosis. C4-5: Mild bilobed disc osteophyte complex produces mild spinal stenosis and mild bilateral neural foraminal stenosis. C5-6: Mild broad disc osteophyte complex and bilateral uncovertebral hypertrophy produces mild spinal stenosis and mild bilateral neural foraminal stenosis. C6-7: Mild broad disc osteophyte complex produces mild spinal stenosis and mild left neural foraminal stenosis. C7-T1: Normal endplates. Normal disc height and morphology. Normal central canal and intervertebral neuroforamina. Normal visualized soft tissue structures. CT/Spine Cervical without Contras IMPRESSION: Multilevel degenerative changes, as described above. No acute fracture or subluxation. Electronically Signed: Rafa Lowery MD at 22:43 EDT , CC: Dr. Jennifer Watt MD; Dr. Sree Teran, DO ~ Sales Support Representative: Signed Assessment & Plan Assessment/Plan (1) Closed displaced fracture of left femoral neck: (2) Fall: QUALIFIERS: Encounter type: initial encounter Qualified Code(s): W19.XXXA - Unspecified fall, initial encounter (3) Uncontrolled hypertension: (4) History of CVA (cerebrovascular accident): (5) Physical debility: (6) Osteoarthritis: QUALIFIERS: Osteoarthritis location: unspecified site O steoarthritis type: unspecified Qualified Code(s): M19.90 - Unspecified osteoarthritis, unspecified site (7) Diabetes mellitus, type 2: QUALIFIERS: Diabetes mellitus complication status: without complication Diabetes mellitus penitentiary insulin use: with dedicated 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 Left femoral neck fracture after mechanical fall at home - Admit to general medical floor. Keep NPO for anticipated ORIF. Place Bo with limited mobility. Give Tylenol prn for [id number] (level 1-5/10) pain or fever. Give Morphine IV prn for severe (level 6-10/10) pain. Finally, we will consult orthopedic surgeon to see this patient on-rounds in the AM for further recommendations regarding ORIF with help appreciated in advance. 2. Uncontrolled hypertension with blood pressure of 194/75 mmHg present on admission complicating #1 - Continue home regimen plus give Hydralazine IV prn for systolic blood pressure > 160 mmHg. 3. History of Right Pontine CVA; with residual Left-sided weakness on Plavix compounding #1 & #2 - Noted. PT/OT and Case Management will be consulted postoperatively to see this patient postoperatively with help appreciated in advance. 4. OA; chronic back pain with previous lumbar laminectomy and associated neuropathic pain adding to the medical complexity of #1 - #3 - Give Tylenol prn. 5. Hyperlipidemia; on ezetimibe - Resume ezetimibe as before. 6. DM-2; of unknown control with history of diabetic nephropathy with proteinuria - ADA diet. FSBS q. AC/HS plus SSI. Check HgbA1c to objectively assess quality of diabetic control. 7. CAD - Stable. 8. PAF; on Amiodarone - Maintain Amiodarone at current dose and schedule. 9. History of VT (2020) - Noted. 10. History of CHF - Stable with no signs of volume overload. 11. PVD - Noted. 12. Chronic venous stasis of both lower extremities - Stable. 13. CKD; stage IIIb - Stable. Check renal indices daily to ensure continued stability. 14. History of Right renal artery stenosis; s/p stent - Stable. 15. History of Right inguinal hernia; s/p repair - Stable. 16. JOHN; on BiPAP - Continue nocturnal BiPAP as previous. 17. DONA - Stable with hemoglobin of 12.6 g/dL present on admission. 18. Overactive bladder - Resume Oxybutynin as before. 19. Glaucoma - Continue Latanoprost as previous. 21. History of cataract surgery - Noted for the sake of completeness. 22. RLS - Continue Pramipexole as previous. 23. Depression - Current Sertraline dose and schedule with be maintained. 24. BPH; s/p TURP (2022) - Resume Doxazosin as before. 25. DVT prophylaxis - RLE SCD only. We will avoid blood thinners preoperatively in cases of traumatic fracture due to increased risk of bleeding complications. Orthopod to determine postoperative DVT prophylaxis regimen. Total time: Approximately 75 minutes. Charges/Coding Visit Charges Inpatient E&M: 14772 Init Hosp L3
[2023-12-10] MEDS: Morphine 4 MG/ML Syringe IV (23:18)
[2023-12-11] VITALS (24 sets, daily range): BP systolic 121–185; BP diastolic 61–80; PULSE 65–84; RESP 16–18; TEMP 36.6–37.1; O2SAT 4–100; BMI 23.8; BMI 23.9
[2023-12-11 00:40] LABS: Absolute Lymphocyte Count 0.94 X10^3/uL (0.83-4.51); Absolute Neutrophil Count 10.4 X10^3/uL (2.0-7.7); Basophil# 0.05 X10^3/uL; Basophil% 0.4 % (0-1); Eosinophil# 0.16 X10^3/uL; Eosinophils% 1.3 % (0-5); Hematocrit 38.7 % (40-54); Hemoglobin 12.6 g/dL (13.0-16.5); Lymphocyte # 0.94 X10^3/ul (0.83-4.51); Lymphocyte % 7.5 % (19-41); Mean Corp Hgb Conc 32.6 g/dL (32-36); Mean Corpuscular Hgb 29.9 pg (27.0-32.0); Mean Corpuscular Volume 91.9 fL (80-94); Mean Platelet Vol. 11.1 fl (6.2-12.0); Monocyte# 0.96 X10^3/uL; Monocyte% 7.6 % (0-10); NRBC Flagged by Analyzer 0 % (0-5); Neutrophil # 10.42 X10^3/uL (2.7-7.7); Neutrophil % 82.6 % (47-70); Platelet Count 215 K/mm3 (150-450); RBC Distribution Width CV 15.9 % (11.6-14.6); RBC Distribution Width SD 53.9 fl (35.1-43.9); Red Blood Count 4.21 M/mm3 (4.6-6.2); White Blood Count 12.6 K/mm3 (4.4-11.0)
[2023-12-11] MEDS: Acetaminophen 325 MG Tablet 650 MG PO (01:03)
[2023-12-11] MEDS: MELATONIN 3 MG TABLET PO (01:03)
[2023-12-11 01:04] LABS: ALB/GLOB Ratio 0.9 RATIO (0.9-2.4); AST(SGOT) 20 U/L (15-37); Alanine Aminotransfer ALT/SGPT 21 U/L (16-61); Albumin, Serum 3.5 g/dL (3.2-5.0); Alkaline Phosphatase 77 U/L (45-117); Anion Gap 6 (5-15); BUN 28 mg/dL (7-18); BUN/Creat Ratio 15.8 RATIO (10-20); Calcium,Total 9.4 mg/dL (8.5-10.1); Chloride 99 mmol/L (98-107); Creatinine, Serum 1.77 mg/dL (0.70-1.30); EST Glomerular Filtration Rate 39 mL/min (>60); Est Glom Filt Rate - Afr Amer 47 mL/min (>60); Globulin 3.7 g/dL (2.2-4.2); Glucose 151 mg/dL (74-106); Magnesium 2.3 mg/dL (1.6-2.6); Phosphorus 2.1 mg/dL (2.5-4.9); Potassium 3.7 mmol/L (3.5-5.1); Protein, Total 7.2 g/dL (6.4-8.2); Sodium Level 139 mmol/L (136-145)
[2023-12-11] MEDS: Gabapentin 300 MG Capsule PO ×2 (01:09→21:51)
[2023-12-11] MEDS: 0.9% Saline Lock 10 ML Syringe IV ×2 (01:09→05:27)
[2023-12-11] MEDS: 0.9% Normal Saline (1000mL) 1,000 ML 70 ML IV (01:09)
[2023-12-11] MEDS: hydrALAZINE 50 MG Tablet 100 MG PO ×4 (01:17→21:51)
[2023-12-11 01:25] LABS: Hemoglobin A1c 6.4 % (3.8-5.6)
--- NOTE | 2023-12-11 05:00 | EKG12_ITS ---
Test Reason : PRE-OP Blood Pressure : / mmHG Vent. Rate : 081 BPM Atrial Rate : 081 BPM P-R Int : 164 ms QRS Dur : 090 ms QT Int : 434 ms P-R-T Axes : 045 047 035 degrees QTc Int : 504 ms Normal sinus rhythm Possible Left atrial enlargement Prolonged QT Abnormal ECG Confirmed by LOGAN STRONG, DWAYNE ([id number]), editor department ARMAND DUKE ([id number]) on 12/14/2023 11:00:31 AM Referred By: ZAINAB Confirmed By:DWAYNE FORD MD
[2023-12-11] MEDS: Morphine 2 MG/ML Syringe IV (05:26)
[2023-12-11] MEDS: Insulin Lispro 100 UNIT/ML INSULN.PEN SC ×2 (06:53→17:54)
[2023-12-11 07:05] LABS: Bedside Glucose 168 mg/dL (74-106)
[2023-12-11] MEDS: cycloBENZAPRine HCl 5 MG TABLET PO (07:13)
--- NOTE | 2023-12-11 07:43 | CON.PCM.OR_ITS ---
HPI Consult Data Date of Consult: 12/11/23 HPI Narrative Reason for Consultation: Left hip fracture HPI Narrative: SHAISTA CLOUD - This is an 83-year-old male past medical history of essential hypertension, hyperlipidemia; on ezetimibe, DM-2; of unknown control, history of diabetic nephropathy with proteinuria, CAD, PAF; on Amiodarone, history of VT (2020), history of CHF, history of Right Pontine CVA; with residual Left-sided weakness on Plavix, PVD, chronic venous stasis of both lower extremities, CKD; stage IIIb, history of Right renal artery stenosis; s/p stent, history of Right inguinal hernia; s/p repair, JOHN; on BiPAP, DONA, overactive bladder, glaucoma, history of cataract surgery, RLS, depression, BPH; s/p TURP (2022) and OA; chronic back pain with previous lumbar laminectomy who presents to [facility] emergency department after a fall onto his left side. Patient states he was sitting at his dining room table and went to turn off the dining room light. He states his left side gave way and he fell onto his left hip. He noted immediate pain and was unable to bear weight. X-rays in the emergency department revealed a displaced femoral neck fracture. He was admitted under the service of the hospitalist. He did hit his head but denied loss consciousness. I was called last night and recommended patient be n.p.o. for possible surgical intervention today. He denies any other pain. Pain is controlled at rest. Denies any fevers, chills, nausea or vomiting, chest pain or shortness of breath. Patient is a household ambulator with a hemiwalker on the right side. Denies any antecedent left hip or groin pain. Denies any problems with anesthesia in the past. [facility] Medical History Fall Current use of insulin Back pain due to injury Restless legs Syncope Kidney stones PAF (paroxysmal atrial fibrillation) CHF (congestive heart failure) Anemia Weakness Wears glasses Depression Rash Insulin dependent diabetes mellitus Walker as ambulation aid Prostate disease Low iron Restless legs Stroke/cerebrovascular accident Dietary restriction Non-smoker BiPAP (biphasic positive airway pressure) dependence History of edema History of echocardiogram Cardiology follow-up encounter BPH (benign prostatic hyperplasia) Congestive heart failure Pneumonia Incontinence Limb weakness Unsteadiness Chronic anemia Hypertension Coronary artery disease Right renal artery stenosis Fatigue Ventricular tachycardia seen on cardiac sonographer (02/20/21) Peripheral vascular occlusive disease Type 2 diabetes mellitus Hyperlipidemia Essential hypertension History of CVA (cerebrovascular accident) (12/2020) Obstructive Sleep Apnea-Hypopnea Syndrome Absent pedal pulses Skin lesion of face Normocytic normochromic anemia Depression Dysphagia Proteinuria due to type 2 diabetes mellitus Facial droop due to acute stroke Acute left-sided muscle weakness Osteoarthritis Right pontine CVA Recurrent inguinal hernia of right side without obstruction or gangrene Home Medications ?Medication ?Instructions ?Recorded ?Last Taken ?Type multivitamin,qw-[id number] 1 tab PO QDAY supplement 03/03/17 01/11/23 History (Complete Multivitamin tablet) Handicap Placard #1 ea 02/12/21 Unknown Rx latanoprost 0.005 % eye drops 1 drp EACH EYE .COMPLEX eyes 02/24/22 01/10/23 History pen needle, diabetic 32 gauge x #50 ea 06/17/22 Unknown Rx (BD Sanaz 2nd Gen Pen Needle) sertraline 50 mg tablet 50 mg PO QHS mood #90 tabs 02/23/23 Unknown Rx ezetimibe 10 mg tablet (Zetia) 10 mg PO QHS cholesterol #90 tabs 05/04/23 Unknown Rx gabapentin 100 mg capsule 100 mg PO BID pain #180 caps 05/04/23 Unknown Rx gabapentin 300 mg capsule 300 mg PO 2100 pain #90 caps 05/04/23 Unknown Rx potassium chloride 20 mEq 20 meq PO DAILYCM 30 days #30 tabs 08/01/23 Unknown Rx tablet,extended release(part/cryst) clopidogrel 75 mg tablet (Plavix) 75 mg PO DAILY blood thinner #90 08/12/23 Unknown Rx tabs amiodarone 200 mg tablet 100 mg (1/2 x 200 mg) PO DAILY #45 08/16/23 Unknown Rx tabs furosemide 40 mg tablet 40 mg PO DAILY #90 TABLETS 08/22/23 Unknown Rx hydralazine 100 mg tablet 100 mg PO TID #270 tabs 09/22/23 Unknown Rx iron sucrose 200 mg iron/10 mL 300 mg (15 mL) .Route .COMPLEX #15 09/22/23 Unknown Rx intravenous solution (Venofer) mL insulin lispro 100 unit/mL 1 unit (0.01 mL) subcut TIDAC PRN 10/13/23 Unknown Rx subcutaneous pen (Humalog KwikPen SLIDING SCALE #15 mL (U-100) Insulin) oxybutynin chloride 15 mg 15 mg PO DAILY 10/28/23 Unknown History tablet,extended release 24 hr pramipexole 0.125 mg tablet 0.125 mg PO QHS parkinsons #90 tabs 11/08/23 Unknown Rx doxazosin 4 mg tablet 4 mg PO QHS Urinary Retention #30 11/15/23 Unknown Rx tabs insulin glargine-yfgn 100 unit/mL 18 unit (0.18 mL) subcut BREAKFAST 11/23/23 Unknown Rx (3 mL) subcutaneous pen Diabetes #15 mL Allergy/AdvReac Type Severity Reaction Status Date / Time meloxicam (From Mobic) Allergy Intermediate itching Verified 12/10/23 18:42 pravastatin (From Pravachol) AdvReac Mild myalgia Verified 12/10/23 18:42 cholestyramine AdvReac hypoglycemi Verified 12/10/23 18:42 a Family History Mother Hypertension Cancer Father Heart disease Diabetes Surgical History History of prostate surgery H/O transurethral resection of prostate (01/12/23) Hx of cystoscopy Hx of total knee arthroplasty History of hydrocelectomy History of cataract surgery History of lumbar laminectomy History of herniorrhaphy History of stent insertion of renal artery (08/05/21) Social History household members: spouse and other details: Abigail is his 's name housing: house number of children: 2 current occupational status: retired and other details: worked for [employer] prior to retiring leisure activities: other Smoking Status: Never smoker Electronic Cigarette Use: not used second hand exposure: No alcohol intake: former substance use type: does not use what type of physical activity do you participate in: walking frequency: 1-2 times per week inés/zoroastrianism: None seatbelt use: always Vital Signs Vital Signs Vital Signs: 12/10/23 18:42 12/10/23 22:00 12/10/23 22:00 Temperature 97 F L Temperature Source Temporal Pulse Rate 70 66 Respiratory Rate 18 18 Respiratory Effort Normal Blood Pressure 186/71 H 194/75 H Blood Pressure Mean 109 114 Pulse Ox 97 97 Oxygen Delivery Method Room Air Room Air Room Air Oxygen Flow Rate (L/min) 12/11/23 00:00 12/11/23 01:17 12/11/23 01:20 Temperature 97.8 F 98.2 F Temperature Source Oral Pulse Rate 65 84 82 Respiratory Rate 18 16 Respiratory Effort Blood Pressure 185/70 H 180/80 H Blood Pressure Mean 108 113 Pulse Ox 96 87 Oxygen Delivery Method Room Air Oxygen Flow Rate (L/min) 12/11/23 05:33 12/11/23 05:36 Temperature 98.8 F Temperature Source Temporal Pulse Rate 83 83 Respiratory Rate 16 Respiratory Effort Blood Pressure 152/77 H 152/77 H Blood Pressure Mean 102 Pulse Ox 97 Oxygen Delivery Method Nasal Cannula Oxygen Flow Rate (L/min) 2 Weight Weight: 175 lb 14.862 oz Body Mass Index (BMI) 23.8 Physical Exam Narrative General -A&Ox3, NAD, appears stated age. Vital signs stable, afebrile. Respiratory -normal work of breathing, no intercostal retractions. CV -pulses regular, brisk capillary refill ?4 limbs. Abdomen-soft, nontender, nondistended. No guarding, rigidity, rebound tenderness. Musculoskeletal/neurologic -full range of motion nontender throughout right upper extremity, right lower extremity with full sensation and strength in all dermatomes and myotomes. No midline cervical tenderness. Minimal motor function with left hand contracture noted left upper extremity. No gross deformity noted. Left lower extremity-no obvious deformity. Pain with logroll of the left lower extremity. Nontender throughout the left knee femoral shaft, tibial shaft and left foot/ankle. Brisk capillary refill. Sensation intact light touch L3-S1 dermatomes. DF, PF, EHL intact, dorsiflexion is 4+/5. Mild equinus contracture noted left ankle.. DP, PT 2+. Pelvis is stable, nontender. Skin is intact without lacerations, abrasions. No ecchymosis noted. Lab / Micro Data 12/11/23 00:00 12/11/23 00:00 Labs: Laboratory Results - last 24 hr 12/11/23 00:00: WBC 12.6 H, RBC 4.21 L, Hgb 12.6 L, Hct 38.7 L, MCV 91.9, MCH 29.9, MCHC 32.6, RDW Std Deviation 53.9 H, RDW Coeff of Cait 15.9 H, Plt Count 215, MPV 11.1, Immature Gran % (Auto) 0.600, Neut % (Auto) 82.6 H, Lymph % (Auto) 7.5 L, Grimes % (Auto) 7.6, Eos % (Auto) 1.3, Baso % (Auto) 0.4, Absolute Neuts (auto) 10.4 H, Absolute Lymphs (auto) 0.94, Nucleated RBC % 0, Sodium 139, Potassium 3.7, Chloride 99, Carbon Dioxide 34.0 H, Anion Gap 6, BUN 28 H, C reatinine 1.77 H, Estim Creat Clear Calc 34.10, Est GFR (MDRD) Af Amer 47 L, Est GFR (MDRD) Non-Af 39 L, BUN/Creatinine Ratio 15.8, Glucose 151 H, Hemoglobin A1c 6.4 H, Calcium 9.4, Phosphorus 2.1 L, Magnesium 2.3, Total Bilirubin 0.20, AST 20, ALT 21, Alkaline Phosphatase 77, Total Protein 7.2, Albumin 3.5, Globulin 3.7, Albumin/Globulin Ratio 0.9, TSH 2.260 12/11/23 05:40: Blood Type O POSITIVE, Antibody Screen NEGATIVE 12/11/23 06:47: POC Glucose 168 H Imaging Radiology Impression Brain CT 12/10/23 22:20 IMPRESSION: Chronic involutional changes of the brain. Electronically Signed: Rafa Lowery MD at 22:39 EDT , Cervical Spine CT 12/10/23 22:20 IMPRESSION: Multilevel degenerative changes, as described above. No acute fracture or subluxation. Electronically Signed: Rafa Lowery MD at 22:43 EDT , Assessment & Plan Assessment/Plan (1) Closed displaced fracture of left femoral neck: PLAN: Patient sustained a left displaced femoral neck fracture -Closed, neurovascularly intact to baseline given chronic left-sided weakness secondary to remote CVA -Isolated injury -Recommending surgical intervention in the form of left hip hemiarthroplasty -I discussed the procedure-its risks, benefits and alternative. Risks include but are not limited to bleeding, infection, loss of life or limb, risk of anesthesia, persistent pain or disability, need for additional surgery, instability, leg length discrepancy, failure of orthopedic hardware, neurovascular injury, DVT or PE. Patient expressed understanding these risks and wished proceed with surgery. -Medical optimization per primary. -Maintenance IV fluids, clear liquid diet after midnight n.p.o. at 2 hours prior to surgery -Type and screen -2 g Ancef on-call to the OR -Bedrest, heel protectors -Plan to proceed with surgery later today when OR becomes available Thank you for this consultation.
--- NOTE | 2023-12-11 08:32 | PCM.PN.HOSP ---
Reason for Visit Reason for Visit: Left hip pain status post fall Subjective Subjective Patient is an 83-year-old white male presents emergency department [facility] on 12/10/23 after sustaining a fall at home onto his left hip. He did admit to also hitting his head. He is not anticoagulated at baseline but does take Plavix chronically. Unfortunately, after the fall he was unable to ambulate subsequently was brought to the emergency department and was found to have femoral neck fracture. He reported the fall was related to a loss of balance to his left with resultant fall onto his left side. CT of the brain was unremarkable for any acute findings. CT of the cervical spine was unremarkable. He was admitted to the medical floor and orthopedic surgery was consulted with plans to take him to the OR later today. Patient with chronic left-sided hemiparesis related to his previous stroke and states he uses a hemiwalker at baseline on the right. Should be able to continue this postoperatively given it is his left hip. Patient with contracture of left upper extremity so if walker is required may need platform on that side and strength is an issue. I did talk to him about likely needing to go to SNF at discharge. He states he and his are planning to move to [facility] assisted living and can do so whenever they feel like it. I am unsure on the accuracy of this as they have not made that move yet. Given that [facility] may be an option for him with plans to transition to assisted living when he is medically stable at discharge. Objective Data Objective Data Vital Signs: Vital Signs Temp Pulse Resp BP Pulse Ox O2 Del Method O2 Flow Rate 98.8 F 83 16 152/77 H 97 Nasal Cannula 2 12/11/23 05:33 12/11/23 05:36 12/11/23 05:33 12/11/23 05:36 12/11/23 05:33 12/11/23 05:33 12/11/23 05:33 Oxygen Flow Rate (L/min) 2 Oxygen Delivery Method Nasal Cannula Weight: 79.8 kg Body Mass Index (BMI) 23.8 Intake & Output: Intake and Output for Last 24 Hours 12/09/23 12/10/23 12/11/23 23:59 23:59 23:59 Intake Total 50 / 50 Output Total 450 / 450 Balance -400 / -400 Lab / Micro Data 12/11/23 00:00 12/11/23 00:00 Labs: Laboratory Results - last 24 hr 12/11/23 00:00: WBC 12.6 H, RBC 4.21 L, Hgb 12.6 L, Hct 38.7 L, MCV 91.9, MCH 29.9, MCHC 32.6, RDW Std Deviation 53.9 H, RDW Coeff of Cait 15.9 H, Plt Count 215, MPV 11.1, Immature Gran % (Auto) 0.600, Neut % (Auto) 82.6 H, Lymph % (Auto) 7.5 L, Gibson % (Auto) 7.6, Eos % (Auto) 1.3, Baso % (Auto) 0.4, Absolute Neuts (auto) 10.4 H, Absolute Lymphs (auto) 0.94, Nucleated RBC % 0, Sodium 139, Potassium 3.7, Chloride 99, Carbon Dioxide 34.0 H, Anion Gap 6, BUN 28 H, Creatinine 1.77 H, Estim Creat Clear Calc 34.10, Est GFR (MDRD) Af Amer 47 L, Est GFR (MDRD) Non-Af 39 L, BUN/Creatinine Ratio 15.8, Glucose 151 H, Hemoglobin A1c 6.4 H, Calcium 9.4, Phosphorus 2.1 L, Magnesium 2.3, Total Bilirubin 0.20, AST 20, ALT 21, Alkaline Phosphatase 77, Total Protein 7.2, Albumin 3.5, Globulin 3.7, Albumin/Globulin Ratio 0.9, TSH 2.260 12/11/23 05:40: Blood Type O POSITIVE, Antibody Screen NEGATIVE 12/11/23 06:47: POC Glucose 168 H Radiography Diagnostic Testing: Radiology Impression Brain CT 12/10/23 22:20 IMPRESSION: Chronic involutional changes of the brain. Electronically Signed: Rafa Lowery MD at 22:39 EDT , Cervical Spine CT 12/10/23 22:20 IMPRESSION: Multilevel degenerative changes, as described above. No acute fracture or subluxation. Electronically Signed: Rafa Lowery MD at 22:43 EDT , Physical Exam Const alert, oriented x3, no apparent distress, average body habitus and well nourished; Negative for healthy appearing Constitutional Narrative: Elderly, white male, lying in bed with leg in traction, appears comfortable currently, does not appear toxic, watching television, appears chronically ill HEENT head/scalp atraumatic and moist oral mucous membranes Head and Scalp: normocephalic Resp normal respiratory effort, no retractions, no use of accessory muscles and clear to auscultation bilaterally Resp Narrative: Exam limited as patient is currently not able to sit up due to his leg being in traction Auscultation: Negative for rales, rhonchi or wheezes Cardio regular rate, regular rhythm, S1 normal heart sound, S2 normal heart sound, no murmurs, no rub, no gallops and no clicks GI normal to inspection, nondistended, normoactive bowel sounds, soft to palpation and non-tender Extremity no clubbing, cyanosis or edema Extremity Narrative: Left upper extremity has flexion contraction at the elbow and the hand, left lower extremity to traction, right lower extremity without any significant abnormalities, pedal pulses are 2+, radial pulses are 2+ Neuro oriented x3 Neuro Narrative: Left-sided hemiparesis from previous stroke with left lower extremity less affected than left upper extremity Speech: speech normal Psych Psych Narrative: Affect is flat, mood is depressed Assessment & Plan Assessment/Plan (1) Closed displaced fracture of left femoral neck: PLAN: Plan Left femoral neck fracture status post mechanical fall -OR later today -Change Tylenol to 1 g every 8 -Add as needed oxycodone -Will change IV morphine to Dilaudid 0.25 mg every 2 hours for breakthrough due to renal dysfunction at baseline -Patient did have recent vitamin D level earlier this month and was found to be 48.4 so no additional supplementation required -PT/OT consultation postoperatively -Start heparin 3 times daily this evening for DVT prophylaxis and await Ortho recommendation for prophylaxis at discharge -Orthopedic surgery consulted with plans for OR later today CKD stage IIIb -Baseline serum creatinine runs between 1.6 and 1.9 -Current serum creatinine is 1.77 -Okay to continue home diuretics -Avoid nephrotoxins postoperatively -Avoid intraoperative hypotension Mechanical fall -PT/OT as noted above -Case management/social work consultation for assistance with discharge planning as I do anticipate patient will need home health care versus SNF at discharge PAF -Continue home amiodarone -Patient is not chronically anticoagulated due to anemia per cardiology documentation -Patient had recent liver functions and thyroid studies which were normal Essential hypertension/hyperlipidemia -Continue home Zetia -Continue home hydralazine -Continue home Lasix -Blood pressure was elevated on arrival however suspect this was related to acute stress and pain -Continue to monitor -As needed hydralazine available History of right pontine stroke -Ultimately should be fully anticoagulated for his history of A-fib however has history of issues with anemia so not anticoagulated -Plavix on hold until postoperatively -Restart once okay with orthopedic surgery DM-2 -Basal insulin dose was decreased from 18-12 in anticipation of OR -If fasting blood sugars are elevated tomorrow may consider increasing back to home dose of 18 units -SSI -Accu-Cheks as ordered Chronic lower extremity edema secondary to venous stasis -Continue home diuretic -Monitor clinically postoperatively History of right renal artery stenosis -Previous stent next-renal function stable Overactive bladder -Hold oxybutynin -May need to consider discontinuation at discharge as this does increase risk for falls and balance loss due to cholinergic effects Restless leg syndrome -Continue home Requip JOHN -Continue nocturnal BiPAP -May want to consider extubation to BiPAP History of glaucoma -Continue eyedrops BPH with obstruction -Continue home doxazosin -Status post TURP in 2022 DVT prophylaxis -Start heparin this evening postoperatively subcu 3 times daily Charges/Coding Visit Charges Inpatient E&M: 04898 Subs Hosp L2
--- NOTE | 2023-12-11 09:02 | NURSING ---
[id number] Dr Sanchez returned call to nurse regarding am meds with patient going to surgery today. ok to administer am meds. Shaquille Magaña RN
[2023-12-11] MEDS: Potassium Chloride Oral Tablet 20 MEQ PO (09:11)
[2023-12-11] MEDS: Amiodarone 200 MG Tablet 100 MG PO (09:12)
[2023-12-11] MEDS: Furosemide 40 MG Tablet PO (09:13)
[2023-12-11] MEDS: Tolterodine Tartrate 4 MG CAP.SA PO (09:13)
[2023-12-11] MEDS: Gabapentin 100 MG Capsule PO ×2 (09:18→17:57)
--- NOTE | 2023-12-11 10:09 | PRE.ANES_ITS ---
ASA Classification* ASA Classification ASA Classification: 3 and E Assessment & Plan Anesthesia* Anesthesia Assessment Anesthesia Assessment: Discussed sedation and/or anesthesia options, risks, benefits, and alternatives with patient/parents/legal guardian/POA. Questions invited. The patient/parents/legal guardian/POA seems to understand and agrees to proceed with anesthesia plan. Reviewed the physical assessment, medical history, allergy history and patient home medications list prior to surgery/procedure/anesthetic and documented any changes. Performed airway and anesthesia risk assessments. Anesthesia Type Anesthesia Type: General Anesthesia Focused Assessment* Temperature: 98.8 F Pulse Rate: 83 Blood Pressure: 152/77 Respiratory Rate: 16 Pulse Ox: 97 Airway Assessment Mouth opens: >3 cm Mallampati Score: II Focused Labs Anesthesia Preop lab: CBC WBC 12.6 K/mm3 (4.4-11.0) H 12/11/23 00:00 RBC 4.21 M/mm3 (4.6-6.2) L 12/11/23 00:00 Hgb 12.6 g/dL (13.0-16.5) L 12/11/23 00:00 Hct 38.7 % (40-54) L 12/11/23 00:00 Plt Count 215 K/mm3 (150-450) 12/11/23 00:00 CHEMISTRY Potassium 3.7 mmol/L (3.5-5.1) 12/11/23 00:00 Sodium 139 mmol/L (136-145) 12/11/23 00:00 Magnesium 2.3 mg/dL (1.6-2.6) 12/11/23 00:00 Phosphorus 2.1 mg/dL (2.5-4.9) L 12/11/23 00:00 BUN 28 mg/dL (7-18) H 12/11/23 00:00 Creatinine 1.77 mg/dL (0.70-1.30) H 12/11/23 00:00 Glucose 151 mg/dL (74-106) H 12/11/23 00:00 POC Glucose 168 mg/dL (74-106) H 12/11/23 06:47 TSH 2.260 uIU/mL (0.358-3.740) 12/11/23 00:00 COAG PT 13.6 SECONDS (11.7-14.9) 01/06/23 13:05 Pre-Assessment Diagnosis/Proposed Procedure Planned Operative Procedure(s): Hemiarthroplasty Hip fx Anesthesia History 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 When Was Last Pacemaker Check QUESTION #4 FULL TEXT: You/Your Family Experience fever (hyperthermia) with Anesthesia Last Oral Intake Last Oral intake: Last Oral Intake NPO since 17:30 12/11/23 00:47 Meds taken in AM with sips of water? Meds patient instructed to take am of surgery PONV PONV - metal precision machine assembler: PONV - metal precision machine assembler Female HX of Motion Sickness HX of N/V After Surgery Non-Smoker Duration of Surgery greater than 60 minutes Number of Risk Factors PONV Score Height & Weight Height & Weight: Anesthesia: Height & Weight Height 6 ft 12/11/23 00:47 Weight: 79.8 kg 12/11/23 00:47 Body Mass Index (BMI) 23.8 12/11/23 00:47 Respiratory Assessment Respiratory Assessment - metal precision machine assembler: Respiratory Tract Infection Hx - metal precision machine assembler Hx Respiratory Tract Infection No: . 12/11/23 00:47 STOP Sleep Apnea STOP Sleep Apnea - metal precision machine assembler: STOP Sleep Apnea - metal precision machine assembler Hx Hypertension Yes 12/11/23 00:33 Hx Sleep Apnea Yes 12/11/23 00:33 CPAP No 12/11/23 00:33 BIPAP Yes 12/11/23 00:33 Do you snore loudly (louder than talking or can be heard Do you often feel tired/ fatigued/ sleepy during daytime? Has anyone observed you stop breathing during sleep? STOP Results Positive 12/11/23 00:33 QUESTION #5 FULL TEXT : Do you snore loudly (louder than talking or can be heard through closed doors)? 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 Specify any problems Hx of Preganancy in last 3 N/A 12/11/23 00:33 Months Nurse Filling Out Transfusion TMELLOR 12/11/23 00:33 & Questions: Date: 12/11/23 12/11/23 00:33 Time: 00:36 12/11/23 00:33 Patient unable to answer at this time (ie. confused, unrespo /Reproduction History /Reproductive History - metal precision machine assembler: /Reproductive Hx- metal precision machine assembler Hx Now Gestational Age (in weeks): EDC: Hx Hx Para Hx Section SAB No 03/29/23 15:05 Active Medications Active Medications: Current Medications Generic Name Dose Route Start Last Admin Trade Name Freq PRN Reason Stop Dose Admin Acetaminophen 1,000 mg 12/11/23 14:00 Acetaminophen 500 Mg Tablet PO Q8 LJ Albuterol Sulfate 2.5 mg 12/11/23 00:17 Albuterol 2.5 Mg/3 Ml Vial.Neb. INHALATION Q2H PRN PRN SOB &/OR WHEEZING Amiodarone HCl 100 mg 12/11/23 10:00 12/11/23 09:12 Amiodarone 200 Mg Tablet PO 100 mg DAILY LJ Administration Doxazosin Mesylate 4 mg 12/11/23 22:00 Doxazosin 4 Mg Tablet PO QHS LJ Protocol Ezetimibe 10 mg 12/11/23 22:00 Ezetimibe 10 Mg Tablet PO QHS LJ Furosemide 40 mg 12/11/23 10:00 12/11/23 09:13 Furosemide 40 Mg Tablet PO 40 mg DAILY LJ Administration Protocol Gabapentin 100 mg 12/11/23 08:00 12/11/23 09:18 Gabapentin 100 Mg Capsule PO 100 mg BIDCM LJ Administration Gabapentin 300 mg 12/11/23 01:30 12/11/23 01:09 Gabapentin 300 Mg Capsule PO 300 mg 2100 LJ Administration Glucagon 1 mg 12/11/23 00:17 Glucagon 1 Mg/Ml Syringe IM X1 PRN HYPOGLYCEMIA Protocol Heparin Sodium (Porcine) 5,000 unit 12/11/23 22:00 Heparin Injection (Vial) 5,000 Unit/Ml Vial SC Q8 LJ Hydralazine HCl 100 mg 12/11/23 06:00 12/11/23 05:36 Hydralazine 50 Mg Tablet PO 100 mg TID LJ Administration Sodium Chloride 1,000 mls @ 70 mls/hr 12/10/23 23:38 12/11/23 01:09 IV 70 mls/hr .[id number] LJ Administration Dextrose 250 mls @ 0 mls/hr 12/11/23 00:17 Dextrose 10%-Water IV .Q0M PRN HYPOGLYCEMIA Protocol As Directed Sodium Chloride 250 mls @ 15 mls/hr 12/11/23 00:40 IV .[id number] PRN Saline Flush Insulin Glargine 12 unit 12/11/23 08:00 12/11/23 09:11 Insulin Glargine-Yfgn 100 Unit/Ml Pen SC Not Given BREAKFAST [facility] Insulin Human Lispro 0 unit 12/11/23 07:00 12/11/23 06:53 Insulin Lispro 100 Unit/Ml Insuln.Pen SC 1 unit TIDAC [facility] Administration Protocol Latanoprost 1 drp 12/12/23 22:00 Latanoprost 0.005% 1 Bottle EACH EYE [id number] [facility] Melatonin 3 mg 12/11/23 00:17 12/11/23 01:03 Melatonin 3 Mg Tablet PO 3 mg QHS PRN PRN Administration INSOMNIA Morphine Sulfate 2 mg 12/11/23 00:17 12/11/23 05:26 Morphine 2 Mg/Ml Syringe IV 2 mg Q4H PRN PRN Administration Pain Score 6-10 Multivitamins/Minerals 1 tablet 12/11/23 08:00 12/11/23 09:13 Multivitamins,Ther W-Minerals Tablet PO Not Given BREAKFAST [facility] Nystatin 1 applic 12/11/23 10:00 12/11/23 09:20 Nystatin Powder 15gm Bottle TOPICAL Not Given BID [facility] Protocol Ondansetron HCl 4 mg 12/11/23 00:17 Ondansetron 4 Mg/2 Ml Vial IV Q8H PRN PRN NAUSEA/VOMITING Oxycodone HCl 5 mg 12/11/23 08:38 Oxycodone 5 Mg Tablet PO Q4H PRN PRN Pain Score 4-10 or Pre PT/OT Potassium Chloride 20 meq 12/11/23 08:00 12/11/23 09:11 Potassium Chloride Oral Tablet 20 Meq PO 20 meq DAILYCM LJ Administration Pramipexole Dihydrochloride 0.125 mg 12/11/23 22:00 Pramipexole Di-Hcl 0.125 Mg Tablet PO QHS LJ Sertraline HCl 50 mg 12/11/23 22:00 Sertraline 50 Mg Tablet PO QHS LJ Sodium Chloride 10 - 40 ml 12/11/23 00:40 12/11/23 05:27 0.9% Saline Lock 10 Ml Syringe IV 10 ml UD PRN Administration SALINE FLUSH Tolterodine Tartrate 4 mg 12/11/23 10:00 12/11/23 09:13 Tolterodine Tartrate 4 Mg Cap.Sa PO 4 mg DAILY LJ Administration PFSH Medical History Fall Current use of insulin Back pain due to injury Restless legs Syncope Kidney stones PAF (paroxysmal atrial fibrillation) CHF (congestive heart failure) Anemia Weakness Wears glasses Depression Rash Insulin dependent diabetes mellitus Walker as ambulation aid Prostate disease Low iron Restless legs Stroke/cerebrovascular accident Dietary restriction Non-smoker BiPAP (biphasic positive airway pressure) dependence History of edema History of echocardiogram Cardiology follow-up encounter BPH (benign prostatic hyperplasia) Congestive heart failure Pneumonia Incontinence Limb weakness Unsteadiness Chronic anemia Hypertension Coronary artery disease Right renal artery stenosis Fatigue Ventricular tachycardia seen on electronic device monitor (02/20/21) Peripheral vascular occlusive disease Type 2 diabetes mellitus Hyperlipidemia Essential hypertension History of CVA (cerebrovascular accident) (12/2020) Obstructive Sleep Apnea-Hypopnea Syndrome Absent pedal pulses Skin lesion of face Normocytic normochromic anemia Depression Dysphagia Proteinuria due to type 2 diabetes mellitus Facial droop due to acute stroke Acute left-sided muscle weakness Osteoarthritis Right pontine CVA Recurrent inguinal hernia of right side without obstruction or gangrene Home Medications ?Medication ?Instructions ?Recorded ?Last Taken ?Type multivitamin,[id number] 1 tab PO QDAY supplement 03/03/17 01/11/23 History (Complete Multivitamin tablet) Handicap Placard #1 ea 02/12/21 Unknown Rx latanoprost 0.005 % eye drops 1 drp EACH EYE .COMPLEX eyes 02/24/22 01/10/23 History pen needle, diabetic 32 gauge x #50 ea 06/17/22 Unknown Rx (BD Sanaz 2nd Gen Pen Needle) sertraline 50 mg tablet 50 mg PO QHS mood #90 tabs 02/23/23 Unknown Rx ezetimibe 10 mg tablet (Zetia) 10 mg PO QHS cholesterol #90 tabs 05/04/23 Unknown Rx gabapentin 100 mg capsule 100 mg PO BID pain #180 caps 05/04/23 Unknown Rx gabapentin 300 mg capsule 300 mg PO 2100 pain #90 caps 05/04/23 Unknown Rx potassium chloride 20 mEq 20 meq PO DAILYCM 30 days #30 tabs 08/01/23 Unknown Rx tablet,extended release(part/cryst) clopidogrel 75 mg tablet (Plavix) 75 mg PO DAILY blood thinner #90 08/12/23 Unknown Rx tabs amiodarone 200 mg tablet 100 mg (1/2 x 200 mg) PO DAILY #45 08/16/23 Unknown Rx tabs furosemide 40 mg tablet 40 mg PO DAILY #90 TABLETS 08/22/23 Unknown Rx hydralazine 100 mg tablet 100 mg PO TID #270 tabs 09/22/23 Unknown Rx iron sucrose 200 mg iron/10 mL 300 mg (15 mL) .Route .COMPLEX #15 09/22/23 Unknown Rx intravenous solution (Venofer) mL insulin lispro 100 unit/mL 1 unit (0.01 mL) subcut TIDAC PRN 10/13/23 Unknown Rx subcutaneous pen (Humalog KwikPen SLIDING SCALE #15 mL (U-100) Insulin) oxybutynin chloride 15 mg 15 mg PO DAILY 10/28/23 Unknown History tablet,extended release 24 hr pramipexole 0.125 mg tablet 0.125 mg PO QHS parkinsons #90 tabs 11/08/23 Unknown Rx doxazosin 4 mg tablet 4 mg PO QHS Urinary Retention #30 11/15/23 Unknown Rx tabs insulin glargine-yfgn 100 unit/mL 18 unit (0.18 mL) subcut BREAKFAST 11/23/23 Unknown Rx (3 mL) subcutaneous pen Diabetes #15 mL Allergy/AdvReac Type Severity Reaction Status Date / Time meloxicam (From Mobic) Allergy Intermediate itching Verified 12/10/23 18:42 pravastatin (From Pravachol) AdvReac Mild myalgia Verified 12/10/23 18:42 cholestyramine AdvReac hypoglycemi Verified 12/10/23 18:42 a Family History Mother Hypertension Cancer Father Heart disease Diabetes Surgical History History of prostate surgery H/O transurethral resection of prostate (01/12/23) Hx of cystoscopy Hx of total knee arthroplasty History of hydrocelectomy History of cataract surgery History of lumbar laminectomy History of herniorrhaphy History of stent insertion of renal artery (08/05/21) Social History household members: spouse and other details: Abigail is his 's name housing: house number of children: 2 current occupational status: retired and other details: worked for [employer] prior to retiring leisure activities: other Smoking Status: Never smoker Electronic Cigarette Use: not used second hand exposure: No alcohol intake: former substance use type: does not use what type of physical activity do you participate in: walking frequency: 1-2 times per week inés/restorationism: None seatbelt use: always Review of Systems (Anesthesia) ROS Narrative System reviewed and no additional complaints, except as documented.
[2023-12-11] MEDS: Cefazolin 2 GM in 0.9% Normal Saline (100mL Bag) 100 ML IV ×2 (12:10→21:00)
--- NOTE | 2023-12-11 12:20 | FEM_PTH ---
PATIENT: SHAISTA CLOUD LOC: [facility] U#:[id number] AGE/SX: 83/M ROOM: [facility] RE12/10/[address]: Dr. Jessica Meyer MD : [id number] BED: 1 DIS: 12/15/2023 SPEC #: [id number] RECD: 12/12/23 09:21 STATUS: AMINTA REQ #: [id number] JAMES: 12/11/23 12:[address]: Shon Tobin DEPT: SURGICAL PATHOLOGY RECD BY: Risa Jonas ENTERED: 12/12/23 11:04 SP TYPE: FEM HEAD OTHR DR: DO Dr. Anai High DO Dr. Loren Kirchner, MD Dr. Nana Yaa Koram, MD Dr. Nicholas Spittle, Tissues: Femoral region, NOS Procedures: Decalcification bone/plaque Surgery Specimen Level V Comments: @ Ordering doctor for DEC edited from to @ by HOWIE at 12/12/23 1146 @ Ordering doctor for SUV edited from to @ by HOWIE at 12/12/23 1146 @ Submitting doctor edited from to @ by HOWIE at 12/12/23 1146 HEADER OPERATION: Hemiarthroplasty, hip PRE-OP DIAGNOSIS: Closed displaced fracture of left femoral neck TISSUE SUBMITTED: Left hip bone and tissue MICROSCOPIC DIAGNOSIS Bone and tissue of left hip, total hip resection: Consistent with organizing fracture callus. AM: 12/15/2023 MICROSCOPIC DESCRIPTION Slides are reviewed. GROSS DESCRIPTION Received is one container labeled with the patient's name and designated femoral head and tissue. The specimen consists of a du femoral head measuring 4.5 x 5.0 x 4.0cm. Portion of femoral neck measuring 1.5cm in greatest length. The articular surface is smooth. Resection margin is irregular and hemorrhagic. Also present in the specimen container is a detached piece of bone consisting with a portion of femoral neck measuring 4.0 x 4.0 x 2.0cm. Also present in the container is a detached piece of bone measuring 3.0 x 1.5 x 1.0cm. No soft tissue is identified. Water Service Supervisor sections are submitted in three cassettes as follows: 1& 2 - detached pieces of bone after decalcification, 3 - femoral head after decalcification. SJ.mr 12/12/2023 TC:5 CPT: 19227, [id number]
[2023-12-11] MEDS: Bupivacaine 0.25% 30 ML Vial (13:21)
[2023-12-11] MEDS: Lidocaine 1% /Epi 1:100 (50ml) 50 ML VIAL (13:21)
[2023-12-11] MEDS: Bupivacaine Mpf 0.5% 30 ML VIAL (13:21)
--- NOTE | 2023-12-11 14:07 | RAD_ITS ---
STUDY: X-RAY - PELVIS AND LEFT HIP REASON FOR EXAM: Male, 83 years old. Post Op -- AP both hips on single cam/lateral of op hip PACU TECHNIQUE: XR Hip Unilateral 2 views with Pelvis 1 Views COMPARISON: 9..24 FINDINGS: There is no fracture or dislocation. There is anatomic alignment. The soft tissue planes are preserved. Total hip arthroplasty. Skin ayanna are seen along the anterior lateral aspect of the hip. There is an air-fluid level seen in the operative site. Joint space is preserved. Subcutaneous air is noted. Vascular calcifications. RAD/Hip Min 2 Views (Portable) IMPRESSION: Successful total hip arthroplasty. Electronically Signed: Alphonse Leggett MD at 15:04 EDT ,
--- NOTE | 2023-12-11 14:13 | PCM.POST.ANE ---
Anesthesia: Postop Eval I Current Vital Signs Temperature: 97.9 F Pulse Rate: 83 Blood Pressure: 145/63 Respiratory Rate: 18 Pulse Ox: 95 Oxygen Delivery Method: Nasal Cannula Oxygen Flow Rate (L/min): 4 Assessment Airway patent: Yes Spontaneous unlabored respirations: Yes Mental status: Awake and Calm nausea: No Vomiting: No Anesthesia Complication: No Fluid Hydration Crystalloid volume administer (ml): 1,000 Total IV fluid infused: 1,000 Progress Note Anesthesia document: Postop Eval 1 completed: Yes
--- NOTE | 2023-12-11 14:16 | POSTOPAN2_ITS ---
Anesthesia Postop Eval I Sum Postop Eval Completion status Anesthesia document: Postop Eval 1 completed: Yes Anesthesia Postop Eval I Summary Anesthesia Postop Eval I Summary: Anesthesia Postop Eval I: Assessment Summary Airway patent Yes 12/11/23 14:14 DRAW OFF WORKER.MEDM Spontaneous unlabored Yes 12/11/23 14:14 DRAW OFF WORKER.MEDM respirations Mental status Awake,Calm 12/11/23 14:14 DRAW OFF WORKER.MEDM nausea No 12/11/23 14:14 DRAW OFF WORKER.MEDM Vomiting No 12/11/23 14:14 DRAW OFF WORKER.MEDM Anesthesia Postop Eval I: Fluid Summary Crystalloid volume administer 1,000 12/11/23 14:14 DRAW OFF WORKER.MEDM (ml) Colloids volume administered ( ml) Blood Product volume administered (ml) Total IV fluid infused 1,000 12/11/23 14:14 DRAW OFF WORKER.MEDM Anesthesia Postop Eval I: Summary Notes Anesthesia Complication No 12/11/23 14:14 DRAW OFF WORKER.MEDM Anesthesia Complication Comment: Post-operative progress note Anesthesia: Postop Eval II Evaluation Mental status: Awake and Calm Pain Level: 3 nausea: No Vomiting: No Complications Anesthesia Complication: No
--- NOTE | 2023-12-11 14:16 | PCM.POSTANE2 ---
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.MEDM Spontaneous unlabored Yes 12/11/23 14:14 HEAVY TRUCK TECHNICIAN.MEDM respirations Mental status Awake,Calm 12/11/23 14:14 HEAVY TRUCK TECHNICIAN.MEDM nausea No 12/11/23 14:14 HEAVY TRUCK TECHNICIAN.MEDM Vomiting No 12/11/23 14:14 HEAVY TRUCK TECHNICIAN.MEDM Anesthesia Postop Eval I: Fluid Summary Crystalloid volume administer 1,000 12/11/23 14:14 HEAVY TRUCK TECHNICIAN.MEDM (ml) Colloids volume administered ( ml) Blood Product volume administered (ml) Total IV fluid infused 1,000 12/11/23 14:14 HEAVY TRUCK TECHNICIAN.MEDM Anesthesia Postop Eval I: Summary Notes Anesthesia Complication No 12/11/23 14:14 HEAVY TRUCK TECHNICIAN.MEDM Anesthesia Complication Comment: Post-operative progress note Anesthesia: Postop Eval II Evaluation Mental status: Awake and Calm Pain Level: 3 nausea: No Vomiting: No Complications Anesthesia Complication: No
--- NOTE | 2023-12-11 14:51 | PCM.OPRPT ---
Report of Operation Date of Procedure: 12/11/23 Description of Surgical Findings:: Preoperative diagnosis: Left displaced femoral neck fracture Postoperative diagnosis: Left displaced femoral neck fracture Procedure: Left hip hemiarthroplasty Surgeon: Shon Tobin DO Vice President Business & Corporate Development: LINDA Leigh Anesthesia: General endotracheal Anesthesiologist: Dr. Connelly Complications: None apparent Drains: None Estimated blood loss: 200 cc Urinary output: 250 cc IV fluids: 350 cc crystalloid Specimens: Femoral head resection Surgical implants: Wilson Accolade C 127 degree neck angle hip stem size #6, Unitrax neck adjustment sleeve +4 mm, Unitrax endoprosthesis head component outer diameter 49 mm, size 13 centralizer Indications: This is an 83-year-old male who sustained a ground-level mechanical fall onto the left side. 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 Was brought to [facility] where x-rays revealed a displaced left femoral neck fracture. He was admitted under the service of the hospitalist. I was consulted to see the patient for surgical recommendations. I recommended a left hip hemiarthroplasty due to the pattern and displacement. I reviewed the procedure with the patient, its risk, benefits, alternatives. Risks included but were not limited to bleeding, infection, loss of life or limb, risk of anesthesia, neurovascular injury, persistent pain, instability, need for additional surgery, failure of orthopedic hardware, loosening, osteolysis, need for assistive devices long-term. Patient expressed understanding and wished to proceed with surgery. Description of procedure: Prior to the procedure, patient was brought to the preoperative holding area where patient was identified by name, medical record number and date of . I confirmed the side, site, operation to be performed with the patient. Informed consent was confirmed, All questions were answered to patient satisfaction. The operative extremity was marked. He was also seen by anesthesia staff and anesthesia consent obtained.At time of the operative procedure, pt was brought to the operative suite. General anesthesia was induced on the hospital bed and endotracheal tube placed. After adequate anesthesia, patient was transferred to a standard operating table. He was then positioned in the lateral decubitus position with the left side up and held in position by the Home med positioner system. All bony prominences were well-padded. An axillary roll was placed under the patient's right axilla. Peroneal nerve was free with a blanket on the nonoperative extremity. Leg lengths were reproduced from patient's position when he was supine. The left lower extremity was then prepped and draped in normal, sterile orthopedic fashion. We performed a timeout with all parties in attendance in agreement with the side, site, and operation to be performed. No concerns were voiced and would like to proceed. 2 g Ancef was ministered IV prior to incision by anesthesia staff. I first marked an incision along the lateral aspect of the hip centered over the greater trochanteric tip. In standard posterior approach, a curvilinear incision was made above the trochanter. An approximately 12 cm incision was made. Skin was sharply incised with a 10 blade scalpel carried deep through subcutaneous layers to the level of the IT band. Gelpi retractors were then placed. A Pavon was used to expose the IT band. Bovie cautery was then used for hemostasis and then to open the IT band. This was opened in line with the incision. The trochanteric bursa was then debrided. This identified the short external rotators after internal rotation of the hip. The fracture site was easily identified at this point. Short external rotators were taken down and tagged for later repair. Hip capsule was also tagged for repair with a stay suture. We then freshened the neck cut with a sagittal saw. Anterior and posterior acetabular retractors were placed to gain access to the femoral head. A corkscrew was used to remove the head. Any remaining debris was debrided from the acetabulum. We then placed the femoral head on the back table for measurement. We did use trial heads and selected a final size 49 with good suction fit. Box chisel was then utilized to gain access to the femoral canal. Canal finder was placed. Sequential broaches were used in press-fit manner. A final size 6 achieved excellent vertical and rotational stability. We then trialed with a standard and subsequently high offset stem. I offset did achieve excellent stability and reproduction of abductor tension. I then prepared the femur for cementing. We trialed a centralizer to determine appropriate size. Simplex cement was then mixed on the back table. I placed a cement restrictor to an appropriate depth allowing for a 5 mm distal cement mantle. Wire brush was used to remove blood from the femoral canal. I then thoroughly irrigated the femoral canal. Canal was suctioned dry. I then placed dry vaginal packing to pack the femoral canal. After 3 minutes, the cement was pressurized in the femoral canal. Size #6 stem was then placed by hand to an appropriate depth recreating appropriate anteversion of the femoral neck. This was held in place while cement cured. Excess cement was removed. After the cemented hardened, we copiously irrigated the wound with normal saline solutio. I retrialed with a +4 mm head trial which appropriately reproduce his leg lengths and was stable through an arc of motion. Final dislocation was performed. The trunnion was irrigated and dried. Final head was then impacted over the Nash taper neck. Final reduction was performed. A posterior capsular repair was performed with #2 Ethibond suture via bone tunnels. A 3-minute sterile dilute Betadine soak was performed and then the wound was copiously irrigated with normal saline. IT band was closed watertight with #1 strata fix suture. Deeper fascial layers were closed with 0 Vicryl suture in interrupted fashion. Subcutaneous layers were reapproximated with 2-0 Vicryl suture and skin reapproximated with skin ayanna. A silver dressing was applied. Patient tolerated procedure well without complication. He was positioned back in the supine position on her hospital bed and subsequently extubated safely. He was transferred to PACU in stable condition. Blankets were placed between the patient's legs. PHARMACY SERVICE ASSOCIATE involvement: The PHARMACY SERVICE ASSOCIATE was involved with supervised patient positioning, draping, retraction, dislocation reduction of the hip joint, wound closure, dressing application. I was present in the operative suite throughout the entirety of the surgical procedure and directly supervised all involvement and participation of the PHARMACY SERVICE ASSOCIATE in the surgical procedure. Post Operative Plan: Weightbearing: Weightbearing as tolerated left lower extremity, posterior hip precautions. Blankets between the legs for the first 24 hours Antibiotics: Ancef 1 g every 8 hours x 3 doses DVT Prophylaxis: Patient has multiple cardiovascular comorbidities but has not been on long-term anticoagulation due to history of anemia. His hemoglobin appears reasonable upon admission. At the very least we will restart Plavix tomorrow. From my standpoint, Plavix is reasonable given his complex medical history for use of a blood thinning agent postoperatively. If the hospitalist feels therapeutic anticoagulation is indicated, okay to start on postoperative day #1 from my standpoint. I certainly would recommend a CBC prior to initiating therapeutic anticoagulation. Bo: Removed postoperative day #1 Dressing: Maintain silver dressing x5 days X-Rays: PACU x-rays were reviewed demonstrated well-positioned left hip hemiarthroplasty implant. Follow-up 2-week x-rays in the office. Follow-up: 2 weeks in office for staple removal
[2023-12-11] MEDS: Lactated Ringers 1,000 ML 15 ML IV (14:52)
[2023-12-11] MEDS: Acetaminophen 500 MG Tablet 1000 MG PO ×2 (16:42→21:58)
[2023-12-11 18:13] LABS: Bedside Glucose 190 mg/dL (74-106)
[2023-12-11] MEDS: Heparin Injection (Vial) 5,000 UNIT/ML VIAL 5000 UNIT SC (21:51)
[2023-12-11] MEDS: Sertraline 50 MG Tablet PO (21:51)
[2023-12-11] MEDS: Nystatin Powder 15gm Bottle 1 APPLIC TOPICAL (21:55)
[2023-12-11] MEDS: Doxazosin 4 MG Tablet PO (21:57)
[2023-12-11] MEDS: Pramipexole Di-HCl 0.125 MG Tablet PO (21:58)
[2023-12-11] MEDS: Senna/Docusate Sodium 1 Tablet 2 TABLET PO (21:59)
[2023-12-11] MEDS: Ezetimibe 10 MG Tablet PO (21:59)
[2023-12-12] VITALS (13 sets, daily range): BP systolic 110–147; BP diastolic 48–68; PULSE 68–86; RESP 16–18; TEMP 35.9–37.4; O2SAT 87–99; BMI 23.9; BMI 25.0
[2023-12-12] MEDS: Cefazolin 2 GM in 0.9% Normal Saline (100mL Bag) 100 ML IV ×2 (04:05→11:35)
[2023-12-12] MEDS: Gabapentin 100 MG Capsule PO ×2 (06:31→16:23)
[2023-12-12] MEDS: Acetaminophen 500 MG Tablet 1000 MG PO ×3 (06:31→21:35)
[2023-12-12] MEDS: hydrALAZINE 50 MG Tablet 100 MG PO ×3 (06:32→21:34)
[2023-12-12] MEDS: Heparin Injection (Vial) 5,000 UNIT/ML VIAL 5000 UNIT SC (06:32)
[2023-12-12] MEDS: HYDROmorphone 0.5 MG/0.5 ML SYRINGE 0.25 MG IV (06:33)
[2023-12-12 07:19] LABS: Magnesium 2.2 mg/dL (1.6-2.6); Phosphorus 2.7 mg/dL (2.5-4.9)
[2023-12-12 07:53] LABS: Absolute Lymphocyte Count 0.82 X10^3/uL (0.83-4.51); Absolute Neutrophil Count 7.5 X10^3/uL (2.0-7.7); Basophil# 0.03 X10^3/uL; Basophil% 0.3 % (0-1); Eosinophils% 1.1 % (0-5); Hematocrit 34.4 % (40-54); Hemoglobin 10.8 g/dL (13.0-16.5); Lymphocyte # 0.82 X10^3/ul (0.83-4.51); Lymphocyte % 8.8 % (19-41); Mean Corp Hgb Conc 31.4 g/dL (32-36); Mean Corpuscular Hgb 29.7 pg (27.0-32.0); Mean Corpuscular Volume 94.5 fL (80-94); Mean Platelet Vol. 10.9 fl (6.2-12.0); Monocyte# 0.84 X10^3/uL; Monocyte% 9.1 % (0-10); NRBC Flagged by Analyzer 0 % (0-5); Neutrophil # 7.46 X10^3/uL (2.7-7.7); Neutrophil % 80.4 % (47-70); Platelet Count 183 K/mm3 (150-450); RBC Distribution Width CV 16.3 % (11.6-14.6); RBC Distribution Width SD 57.1 fl (35.1-43.9); Red Blood Count 3.64 M/mm3 (4.6-6.2); White Blood Count 9.3 K/mm3 (4.4-11.0)
[2023-12-12 07:55] LABS: Anion Gap 9 (5-15); BUN 28 mg/dL (7-18); BUN/Creat Ratio 15.8 RATIO (10-20); Calcium,Total 8.9 mg/dL (8.5-10.1); Chloride 104 mmol/L (98-107); Creatinine, Serum 1.77 mg/dL (0.70-1.30); EST Glomerular Filtration Rate 39 mL/min (>60); Est Glom Filt Rate - Afr Amer 47 mL/min (>60); Glucose 156 mg/dL (74-106); Potassium 4.2 mmol/L (3.5-5.1); Sodium Level 141 mmol/L (136-145)
[2023-12-12 08:01] LABS: Vitamin D,25 Hydroxy 57.7 ng/mL
[2023-12-12] MEDS: Insulin Lispro 100 UNIT/ML INSULN.PEN SC ×3 (08:16→16:25)
[2023-12-12] MEDS: Insulin Glargine-YFGN 100 UNIT/ML Pen 12 UNIT SC (08:16)
[2023-12-12] MEDS: Furosemide 40 MG Tablet PO (10:25)
[2023-12-12] MEDS: Amiodarone 200 MG Tablet 100 MG PO (10:25)
[2023-12-12] MEDS: Nystatin Powder 15gm Bottle 1 APPLIC TOPICAL ×2 (10:25→21:37)
[2023-12-12] MEDS: Tolterodine Tartrate 4 MG CAP.SA PO (10:25)
[2023-12-12] MEDS: Clopidogrel Bisulfate 75 MG Tablet PO (10:25)
[2023-12-12] MEDS: Senna/Docusate Sodium 1 Tablet 2 TABLET PO ×2 (10:25→21:36)
[2023-12-12] MEDS: oxyCODONE 5 MG Tablet PO (10:40)
--- NOTE | 2023-12-12 11:56 | PCM.PN.ORT ---
Subjective Subjective Patient is s/p left-hip hemiarthroplasty with Dr. Tobin 12/11/23. patient was admitted 12/10/2023 after ground-level fall and found to have a left femoral neck fracture. Patient resting comfortably in bedside chair. has O2 via NC, satting well. Rates pain 1/ 10 at rest. With movement 1/10. States taking Tylenol and oxycodone and Dilaudid as needed and ice help to relieve pain. Patient has been up with therapy. Walking with the assit of a walker. Afebrile, no chest pain, shortness of breath, negative calf pain/ erythema, and no other signs of DVT. Of note patient is hemiparetic on the left side at baseline due to remote CVA. This is stable. Patient is currently on Plavix and subcu heparin for DVT prophylaxis. Objective Data Objective Data Vital Signs: Vital Signs Temp Pulse Resp BP Pulse Ox O2 Del Method O2 Flow Rate 97.5 F L 69 18 110/51 L 94 Nasal Cannula 2 12/12/23 11:45 12/12/23 11:45 12/12/23 11:45 12/12/23 11:45 12/12/23 11:45 12/12/23 11:45 12/12/23 11:45 FiO2 21 12/12/23 01:44 Oxygen Flow Rate (L/min) 2 Oxygen Delivery Method Nasal Cannula Weight: 84 kg Body Mass Index (BMI) 25.0 Intake & Output: Intake and Output for Last 24 Hours 12/10/23 12/11/23 12/12/23 23:59 23:59 23:59 Intake Total 1584.75 / 1944.75 470 / 470 Output Total 1150 / 1350 550 / 550 Balance 434.75 / 594.75 -80 / -80 Lab / Micro Data 12/12/23 06:33 12/12/23 06:33 Labs: Laboratory Results - last 24 hr 12/11/23 05:40: Vitamin D 25-Hydroxy 57.7 12/11/23 17:52: POC Glucose 190 H 12/12/23 06:33: WBC 9.3, RBC 3.64 L, Hgb 10.8 L, Hct 34.4 L, MCV 94.5 H, MCH 29.7, MCHC 31.4 L, RDW Std Deviation 57.1 H, RDW Coeff of Cait 16.3 H, Plt Count 183, MPV 10.9, Immature Gran % (Auto) 0.300, Neut % (Auto) 80.4 H, Lymph % (Auto) 8.8 L, [place] % (Auto) 9.1, Eos % (Auto) 1.1, Baso % (Auto) 0.3, Absolute Neuts (auto) 7.5, Absolute Lymphs (auto) 0.82 L, Nucleated RBC % 0, Sodium 141, Potassium 4.2, Chloride 104, Carbon Dioxide 28.0, Anion Gap 9, BUN 28 H, Creatinine 1.77 H, Estim Creat Clear Calc 34.10, Est GFR (MDRD) Af Amer 47 L, Est GFR (MDRD) Non-Af 39 L, BUN/Creatinine Ratio 15.8, Glucose 156 H, Calcium 8.9, Phosphorus 2.7, Magnesium 2.2 Radiography Diagnostic Testing: Radiology Impression Hip/Pelvis X-Ray 12/10/23 22:25 IMPRESSION: Acute impacted fracture of the transcervical femoral neck. Electronically Signed: Rafa Lowery MD at 22:45 EDT , Hip X-Ray 12/11/23 14:07 IMPRESSION: Successful total hip arthroplasty. Electronically Signed: Alphonse Leggett MD at 15:04 EDT , Physical Exam Narrative Patient resting comfortably in bedside chair No signs of acute distress Satting well on NC Limb is warm to touch, Sensation intact throughout entire lower extremity, patient is hemiplegic to the left side at baseline. patient able to wiggle toes DP/PT pulses bounding. Dressing clear dry intact Calf nontender to palpation, no erythema, no edema. Negative Homans Assessment & Plan Assessment/Plan (1) Closed displaced fracture of left femoral neck: (2) Status post hip hemiarthroplasty: PLAN: Plan Status post a left hip hemiarthroplasty 12/11/[address] Tobin. 1. Will continue PT today. Weightbearing as tolerated 2. Discharge ultimately per primary. 3. Patient will follow up for post op appointment in 2 weeks with our office with x-rays. This will need to be arranged. 4. Patient to continue therapy upon discharge whether in a skilled facility or home therapy or outpatient therapy. This will need to be arranged. 5. WBC 9.3 no acute reactive leukocytosis 6. H/H 10.8/34.4: post operative anemia secondary to acute blood loss intraoperatively. Patient is asymptomatic at this time. No intraoperative complications. Ultimately interventions per primary. 7. DVT prophylaxis : Patient restarted Plavix and is on subcu heparin. From an orthopedic standpoint DVT prophylaxis for 4 weeks. 8. Pain control: patient instructed to take tylenol 500mg 2 tablets TID. and oxycodone 1-2 tablets every 4-6 hours only as needed for pain control. 9. ok to remove post op dressing. post op day 5 10. Ultimately stable from an orthopedic standpoint okay to discharge when medically stable per primary. Orthopedics to sign off at this point in time.
[2023-12-12 12:03] LABS: Bedside Glucose 207 mg/dL (74-106)
--- NOTE | 2023-12-12 13:48 | PN_ITS ---
Subjective Subjective Patient seen and examined. He was comfortably eating breakfast and had no complaints. He denied having any pain. He denied any cough, chest pain, shortness of breath, palpitations, dizziness, nausea, vomiting or any other symptoms. Review of systems is otherwise negative. Today is POD 1 for left hemiarthroplasty. Pain is well controlled. Objective Data Objective Data Vital Signs: Vital Signs Temp Pulse Resp BP Pulse Ox O2 Del Method O2 Flow Rate 97.5 F L 69 18 110/51 L 94 Nasal Cannula 2 12/12/23 11:45 12/12/23 11:45 12/12/23 11:45 12/12/23 11:45 12/12/23 11:45 12/12/23 11:45 12/12/23 12:48 FiO2 21 12/12/23 01:44 Oxygen Flow Rate (L/min) 2 Oxygen Delivery Method Nasal Cannula Weight: 185 lb 3.013 oz Body Mass Index (BMI) 25.0 Intake & Output: Intake and Output for Last 24 Hours 12/10/23 12/11/23 12/12/23 23:59 23:59 23:59 Intake Total 1584.75 / 1944.75 580 / 580 Output Total 1150 / 1350 550 / 550 Balance 434.75 / 594.75 Lab / Micro Data 12/12/23 06:33 12/12/23 06:33 Labs: Laboratory Results - last 24 hr 12/11/23 05:40: Vitamin D 25-Hydroxy 57.7 12/11/23 17:52: POC Glucose 190 H 12/12/23 06:33: WBC 9.3, RBC 3.64 L, Hgb 10.8 L, Hct 34.4 L, MCV 94.5 H, MCH 29.7, MCHC 31.4 L, RDW Std Deviation 57.1 H, RDW Coeff of Cait 16.3 H, Plt Count 183, MPV 10.9, Immature Gran % (Auto) 0.300, Neut % (Auto) 80.4 H, Lymph % (Auto) 8.8 L, [place] % (Auto) 9.1, Eos % (Auto) 1.1, Baso % (Auto) 0.3, Absolute Neuts (auto) 7.5, Absolute Lymphs (auto) 0.82 L, Nucleated RBC % 0, Sodium 141, Potassium 4.2, Chloride 104, Carbon Dioxide 28.0, Anion Gap 9, BUN 28 H, C reatinine 1.77 H, Estim Creat Clear Calc 34.10, Est GFR (MDRD) Af Amer 47 L, Est GFR (MDRD) Non-Af 39 L, BUN/Creatinine Ratio 15.8, Glucose 156 H, Calcium 8.9, Phosphorus 2.7, Magnesium 2.2 12/12/23 11:33: POC Glucose 207 H Radiography Diagnostic Testing: Radiology Impression Hip/Pelvis X-Ray 12/10/23 22:25 IMPRESSION: Acute impacted fracture of the transcervical femoral neck. Electronically Signed: Rafa Lowery MD at 22:45 EDT , Hip X-Ray 12/11/23 14:07 IMPRESSION: Successful total hip arthroplasty. Electronically Signed: Alphonse Leggett MD at 15:04 EDT , Physical Exam Const alert, oriented x3 and no apparent distress Constitutional Narrative: frail, elderly. General Appearance: cooperative HEENT normocephalic, head/scalp atraumatic, moist oral mucous membranes and oropharynx normal Eyes PERRL and EOMs intact bilaterally Neck no lymphadenopathy, supple and no JVD Lymph Lymphatic: no lymphadenopathy noted and no lymphedema noted Resp Resp Narrative: mildly diminished breath sounds bibasally, no wheezes or crackles. On 2L of oxygen by nasal canula Cardio regular rate, regular rhythm, S1 normal heart sound, S2 normal heart sound and no murmurs GI normal to inspection, nondistended, normoactive bowel sounds, soft to palpation and non-tender Extremity normal capillary refill, no clubbing, cyanosis or edema and no calf tenderness General Extremity: no tenderness to palpation of joints or extremities Skin Skin Narrative: intact dressing over left hip General Skin Exam: no breakdown Neuro CN's II-XII intact bilaterally, no focal motor deficits and no sensory deficits noted Motor Exam: general weakness Psych thought process normal and cooperative Appearance: appropriate Assessment & Plan Assessment/Plan (1) Status post hip hemiarthroplasty: (2) Uncontrolled hypertension: (3) Closed displaced fracture of left femoral neck: PLAN: Plan #Left femoral fracture s/p left hemiarthroplasty * today is POD 1; had left hip hemiarthroplasty for left displaced femoral neck fracture on 12/11/2023. * orthopedic surgery on board * PO tylenol, PO oxycodone and iV dilaydid prn for pain * fall precautions * incentive spirometry * management as per orthopedic surgery * #Hypertension: on PO hydralazine and lasix. IV hydralazine prn #Paroxysmal afib: on amiodarone. NOt chronically anticoagulated due to histoyr of anemia. #HFrEF: not in exacerbation. on lasix. #Type 2 diabetes mellitus: * Will put back on home dose of Lantus 18 units daily. * This was reduced to 12 units in anticipation of surgery. Insulin sliding scale. * Accuchecks ACHS. # History of BPH status post TURP: Had TURP in 2022. On doxazosin. #History of right pontine stroke: on plavix, which was held for surgery. Plavix resumed per orthopedic surgery. # History of renal artery stenosis on the right, s/p stents. Stable. #Restless leg syndrome: On Requip #History of overactive bladder: * Oxybutynin on hold. * To discuss with PCP about discontinuing this on discharge due to increased risk of falls on muscle balance. #JOHN: On CPAP qhs #Hyperlipidemia: on ezetemibe. #CKD IIIb: Creatinine is 1.77 today which is around his baseline. #DVT prophylaxis: currently on heparin. start on eliquis 2.5mg bid and dc heparin. Disposition: will benefit from placement. * Charges/Coding Visit Charges Inpatient E&M: 09766 Subs Hosp L2
--- NOTE | 2023-12-12 14:17 | CASEMGMT ---
CHADD VIEIRA Assessment Face to Face with patient for initial transition planning/care coordination assessment. CHADD VIEIRA introduced self and role at [facility], pt voices understanding. Pt is A&Ox4 and is resting comfortably in the chair and is calm. Care providers, pharmacy, and demographics verified. Admitting dx: Lt Femoral Neck Fx after [facility] fall LACE Strata: 3 PCP: Jennifer Watt Specialists: Holly BUTTS (neuro), Nikki Pul Tyler Preferred Pharmacy: [facility] Insurance: [employer] [facility] Prescription Benefit: Yes LNOK: Abigail Thomas (W), Jimena Hansen (Jayesh) Living Arrangements: Pt lives with his in a single story home with 3 steps to enter with a handrail ADLs/IADLs: Pt assists the pt at home Transportation: Pt DME: BiPAP @ [facility] with no additional oxygen. Pt states that he has a history with home oxygen use through [employer]. Pt states that he has a glucometer and sufficient supplies. Pt also has: medical alert system, pox, cane, fww, Shower chair, W/C, and grab bars HHC/SNF: Hx at [facility] TCU. Pt states that he has has [facility] HH in the past. Pt is active with [facility] Plan: Anticipate SNF. See PT/OT notes. Pt states that his halfway goal is to go to [facility]. However, the facility does not have skilled therapy for the pt current needs. 6-Click score is 7. Care management to provide the pt with a list of local in-network SNF's. Report given to LA NENA FLORENTINO CM. Prashant Morales RN, CM
--- NOTE | 2023-12-12 14:49 | CASEMGMT ---
Discharge Planning A list of SNF providers including quality and resource use data and consistent with the patient's preferred geographic region, medical needs, and insurance network was created in [employer] Guide.? This list was provided to the SW. Rizwana Hahn Discharge Planning Asst.
--- NOTE | 2023-12-12 15:03 | CASEMGMT ---
Social Work- SW met with pt to discuss preferences at d/c. A list of SNF providers including quality and resource use data and consistent with the patient?s preferred geographic region, medical needs, and insurance network were provided from the [employer] Guide. Pt states that he doesn't need a list because he and his have paid for 2 months at [facility]. SW provided education on SNF vs AL and inpt vs in-home therapies. Pt states he will look over the list with his today. SW will f/u for choices for referrals. ROBERTO Wiley
[2023-12-12] MEDS: APIXABAN 2.5 MG TABLET (WCH) PO ×2 (15:32→21:44)
[2023-12-12 16:59] LABS: Bedside Glucose 195 mg/dL (74-106)
[2023-12-12] MEDS: Gabapentin 300 MG Capsule PO (21:33)
[2023-12-12] MEDS: Pramipexole Di-HCl 0.125 MG Tablet PO (21:35)
[2023-12-12] MEDS: Ezetimibe 10 MG Tablet PO (21:36)
[2023-12-12] MEDS: Sertraline 50 MG Tablet PO (21:37)
[2023-12-12] MEDS: Doxazosin 4 MG Tablet PO (21:38)
[2023-12-12] MEDS: Latanoprost 0.005% 1 Bottle 1 DRP EACH EYE (21:38)
[2023-12-13] VITALS (9 sets, daily range): BP systolic 108–137; BP diastolic 54–60; PULSE 75–89; RESP 15–16; TEMP 36.7–37.1; O2SAT 93–99; BMI 26.2
--- NOTE | 2023-12-13 00:15 | NURSING ---
pt bladder scanned for 327, then st cathed for 350ml
[2023-12-13] MEDS: oxyCODONE 5 MG Tablet PO ×2 (05:15→18:40)
[2023-12-13] MEDS: Acetaminophen 500 MG Tablet 1000 MG PO ×3 (05:15→21:55)
[2023-12-13] MEDS: hydrALAZINE 50 MG Tablet 100 MG PO ×3 (05:15→21:52)
[2023-12-13] MEDS: Insulin Lispro 100 UNIT/ML INSULN.PEN SC (07:43)
[2023-12-13] MEDS: Insulin Glargine-YFGN 100 UNIT/ML Pen 18 UNIT SC (07:44)
[2023-12-13] MEDS: Multivitamins,Ther W-Minerals Tablet 1 TABLET PO (07:45)
[2023-12-13] MEDS: Potassium Chloride Oral Tablet 20 MEQ PO (07:45)
[2023-12-13] MEDS: Gabapentin 100 MG Capsule PO ×2 (07:48→16:50)
[2023-12-13 07:54] LABS: Absolute Lymphocyte Count 0.82 X10^3/uL (0.83-4.51); Absolute Neutrophil Count 7.1 X10^3/uL (2.0-7.7); Basophil# 0.05 X10^3/uL; Basophil% 0.6 % (0-1); Eosinophil# 0.26 X10^3/uL; Eosinophils% 2.9 % (0-5); Hematocrit 28.6 % (40-54); Hemoglobin 9.4 g/dL (13.0-16.5); Lymphocyte # 0.82 X10^3/ul (0.83-4.51); Lymphocyte % 9.1 % (19-41); Mean Corp Hgb Conc 32.9 g/dL (32-36); Mean Corpuscular Hgb 30.3 pg (27.0-32.0); Mean Corpuscular Volume 92.3 fL (80-94); Monocyte# 0.75 X10^3/uL; Monocyte% 8.3 % (0-10); NRBC Flagged by Analyzer 0 % (0-5); Neutrophil # 7.12 X10^3/uL (2.7-7.7); Neutrophil % 78.7 % (47-70); Platelet Count 159 K/mm3 (150-450); RBC Distribution Width CV 16.2 % (11.6-14.6); RBC Distribution Width SD 55.3 fl (35.1-43.9)
[2023-12-13 08:16] LABS: Bedside Glucose 175 mg/dL (74-106)
[2023-12-13 08:27] LABS: Anion Gap 5 (5-15); BUN 32 mg/dL (7-18); BUN/Creat Ratio 17.2 RATIO (10-20); Calcium,Total 8.6 mg/dL (8.5-10.1); Chloride 104 mmol/L (98-107); Creatinine, Serum 1.86 mg/dL (0.70-1.30); EST Glomerular Filtration Rate 37 mL/min (>60); Est Glom Filt Rate - Afr Amer 45 mL/min (>60); Estimated Creatinine Clearance 32.45 ml/min; Glucose 176 mg/dL (74-106); Potassium 3.5 mmol/L (3.5-5.1); Sodium Level 140 mmol/L (136-145)
--- NOTE | 2023-12-13 09:38 | CASEMGMT ---
Social Work- SW met with pt to follow up on list. Pt again reported that he is going to [facility], but it unable to give me a move-in date. SW again provided education on AL vs SNF. Pt states he would like referral to TCU as he has been there in the past. TCU referral completed. ROBERTO Wiley
[2023-12-13] MEDS: Amiodarone 200 MG Tablet 100 MG PO (10:18)
[2023-12-13] MEDS: Tolterodine Tartrate 4 MG CAP.SA PO (10:18)
[2023-12-13] MEDS: Senna/Docusate Sodium 1 Tablet 2 TABLET PO ×2 (10:19→21:52)
[2023-12-13] MEDS: Nystatin Powder 15gm Bottle 1 APPLIC TOPICAL ×2 (10:19→22:04)
[2023-12-13] MEDS: Furosemide 40 MG Tablet PO (10:19)
[2023-12-13] MEDS: Clopidogrel Bisulfate 75 MG Tablet PO (10:20)
--- NOTE | 2023-12-13 10:51 | PN_ITS ---
Subjective Subjective Patient seen and examined. He was lying comfortably in bed and had no complaints. He had an uneventful night. He is on room air. Pain is well- controlled. Review systems otherwise negative. Objective Data Objective Data Vital Signs: Vital Signs Temp Pulse Resp BP Pulse Ox O2 Del Method O2 Flow Rate 98.7 F 89 16 108/54 L 93 Room Air 2 12/13/23 07:26 12/13/23 07:26 12/13/23 07:26 12/13/23 07:26 12/13/23 07:49 12/13/23 07:49 12/13/23 07:33 FiO2 21 12/12/23 01:44 Oxygen Flow Rate (L/min) 2 Oxygen Delivery Method Room Air Weight: 194 lb 0.108 oz Body Mass Index (BMI) 26.2 Intake & Output: Intake and Output for Last 24 Hours 12/11/23 12/12/23 12/13/23 23:59 23:59 23:59 Intake Total 1584.75 / 1944.75 580 / 580 Output Total 1150 / 1350 800 / 800 350 / 350 Balance 434.75 / 594.75 -220 / -220 -350 / -350 Lab / Micro Data 12/13/23 07:33 12/13/23 07:33 Labs: Laboratory Results - last 24 hr 12/12/23 11:33: POC Glucose 207 H 12/12/23 16:24: POC Glucose 195 H 12/13/23 07:33: WBC 9.0, RBC 3.10 L, Hgb 9.4 L, Hct 28.6 L, MCV 92.3, MCH 30.3, MCHC 32.9, RDW Std Deviation 55.3 H, RDW Coeff of Cait 16.2 H, Plt Count 159, MPV 11.0, Immature Gran % (Auto) 0.400, Neut % (Auto) 78.7 H, Lymph % (Auto) 9.1 L, [place] % (Auto) 8.3, Eos % (Auto) 2.9, Baso % (Auto) 0.6, Absolute Neuts (auto) 7.1, Absolute Lymphs (auto) 0.82 L, Nucleated RBC % 0, Sodium 140, Potassium 3.5, Chloride 104, Carbon Dioxide 31.0, Anion Gap 5, BUN 32 H, Creatinine 1.86 H , Estim Creat Clear Calc 32.45, Est GFR (MDRD) Af Amer 45 L, Est GFR (MDRD) Non- Af 37 L, BUN/Creatinine Ratio 17.2, Glucose 176 H, Calcium 8.6 12/13/23 07:42: POC Glucose 175 H Physical Exam Const alert, oriented x3, no apparent distress and average body habitus Constitutional Narrative: frail, elderly. General Appearance: cooperative HEENT normocephalic, head/scalp atraumatic, hearing grossly normal bilaterally, moist oral mucous membranes and oropharynx normal Eyes PERRL and EOMs intact bilaterally Neck no lymphadenopathy, supple and no JVD Lymph Lymphatic: no lymphadenopathy noted and no lymphedema noted Resp normal respiratory effort Resp Narrative: mildly diminished breath sounds bibasally, no wheezes or crackles. On room air. Cardio regular rate, regular rhythm, S1 normal heart sound, S2 normal heart sound, no murmurs, no rub, no gallops and no clicks GI normal to inspection, nondistended, normoactive bowel sounds, soft to palpation, non-tender and non-distended Extremity Extremity Narrative: Left upper extremity has flexion contraction at the elbow and the hand, left lower extremity to traction, right lower extremity without any significant abnormalities, pedal pulses are 2+, radial pulses are 2+ Intact dressing over left hip, at site of surgery. Skin Skin Narrative: intact dressing over left hip General Skin Exam: no breakdown Neuro oriented x3, CN's II-XII intact bilaterally, moves all extremities, no focal motor deficits and no sensory deficits noted Neuro Narrative: Left-sided hemiparesis from previous stroke with left lower extremity less affected than left upper extremity Sensorium / Orientation: awake, alert and oriented to person Speech: speech normal Motor Exam: general weakness Psych thought process normal, cooperative and affect normal Appearance: appropriate Assessment & Plan Assessment/Plan (1) Status post hip hemiarthroplasty: (2) Uncontrolled hypertension: (3) Closed displaced fracture of left femoral neck: PLAN: Plan #Left femoral fracture s/p left hemiarthroplasty * today is POD 2; had left hip hemiarthroplasty for left displaced femoral neck fracture on 12/11/2023. * orthopedic surgery on board * PO tylenol, PO oxycodone and iV dilaydid prn for pain * fall precautions * incentive spirometry * management as per orthopedic surgery * #Hypertension: on PO hydralazine and lasix. IV hydralazine prn #Paroxysmal afib: on amiodarone. NOt chronically anticoagulated due to histoyr of anemia. #HFrEF: not in exacerbation. on lasix. #Type 2 diabetes mellitus: * on lantus 18 units daily. * Insulin sliding scale. * Accuchecks ACHS. # History of BPH status post TURP: Had TURP in 2022. On doxazosin. #History of right pontine stroke: on plavix, # History of renal artery stenosis on the right, s/p stents. Stable. #Restless leg syndrome: On Requip #History of overactive bladder: * Oxybutynin on hold. * To discuss with PCP about discontinuing this on discharge due to increased risk of falls on muscle balance. #JOHN: On CPAP qhs #Hyperlipidemia: on ezetemibe. #CKD IIIb: Creatinine is 1.86 today which is around his baseline. #DVT prophylaxis:on eliquis 2.5mg bid. Disposition: will benefit from placement. * Charges/Coding Visit Charges Inpatient E&M: 17399 Subs Hosp L2
[2023-12-13 11:28] LABS: Bedside Glucose 142 mg/dL (74-106)
[2023-12-13] MEDS: APIXABAN 2.5 MG TABLET (WCH) PO ×2 (11:48→22:04)
[2023-12-13] MEDS: FLU VACCINE **HIGH DOSE** TV 24-25 180 MCG/0.5 ML SYRINGE IM (11:48)
--- NOTE | 2023-12-13 14:34 | NURSING ---
Pt was ST Cathed, per order for 600ml.
[2023-12-13] MEDS: Finasteride 5 MG Tablet PO (14:45)
--- NOTE | 2023-12-13 16:36 | CASEMGMT ---
Social Work- SW called pt who states that pt has been very groggy and she has not been able to hold conversations with him when she visits. SW provided education on SNF vs AL, as well as PT recommendations. Pt states that she will be in to see pt this evening and will select additional choices for SNF in the event that [facility] does not accept. Pt asked that SW communicate with her on acceptance/declination of referrals, as pt has been unable to communicate with her. ROBERTO Wiley
[2023-12-13 17:00] LABS: Bedside Glucose 125 mg/dL (74-106)
[2023-12-13] MEDS: Gabapentin 300 MG Capsule PO (21:49)
[2023-12-13] MEDS: Doxazosin 4 MG Tablet PO (21:50)
[2023-12-13] MEDS: Pramipexole Di-HCl 0.125 MG Tablet PO (21:53)
[2023-12-13] MEDS: Sertraline 50 MG Tablet PO (21:54)
[2023-12-13] MEDS: Ezetimibe 10 MG Tablet PO (21:59)
[2023-12-14] VITALS (8 sets, daily range): BP systolic 108–149; BP diastolic 55–67; PULSE 68–101; RESP 15–16; TEMP 36.5–37.2; O2SAT 93–99; BMI 26.2
--- NOTE | 2023-12-14 00:14 | PCM.HOSP.N ---
Hospitalist Note Patient with ongoing urinary retention, straight catheterization performed, on 3rd time to now placed.
[2023-12-14 00:25] LABS: Bedside Glucose 142 mg/dL (74-106)
--- NOTE | 2023-12-14 00:37 | NURSING ---
2200: PT UNABLE TO URINATE. BLADDER BCUB=[id number]. #16FR WARNER CATHETER INSERTED AT THIS TIME PER ORDER THIS IS THE 3RD ATTEMPT.
[2023-12-14] MEDS: hydrALAZINE 50 MG Tablet 100 MG PO ×2 (06:55→21:35)
[2023-12-14] MEDS: Acetaminophen 500 MG Tablet 1000 MG PO ×3 (06:55→21:38)
[2023-12-14 07:27] LABS: Absolute Lymphocyte Count 0.94 X10^3/uL (0.83-4.51); Absolute Neutrophil Count 7.4 X10^3/uL (2.0-7.7); Basophil# 0.05 X10^3/uL; Basophil% 0.5 % (0-1); Eosinophils% 4.2 % (0-5); Lymphocyte # 0.94 X10^3/ul (0.83-4.51); Lymphocyte % 9.8 % (19-41); Mean Corp Hgb Conc 32.3 g/dL (32-36); Mean Corpuscular Hgb 29.6 pg (27.0-32.0); Mean Corpuscular Volume 91.7 fL (80-94); Mean Platelet Vol. 11.1 fl (6.2-12.0); Monocyte# 0.76 X10^3/uL; Monocyte% 7.9 % (0-10); NRBC Flagged by Analyzer 0 % (0-5); Neutrophil # 7.41 X10^3/uL (2.7-7.7); Neutrophil % 77.2 % (47-70); Platelet Count 203 K/mm3 (150-450); RBC Distribution Width CV 16.1 % (11.6-14.6); RBC Distribution Width SD 53.9 fl (35.1-43.9); Red Blood Count 3.38 M/mm3 (4.6-6.2); White Blood Count 9.6 K/mm3 (4.4-11.0)
[2023-12-14 07:40] LABS: Anion Gap 6 (5-15); BUN 33 mg/dL (7-18); BUN/Creat Ratio 19.4 RATIO (10-20); Calcium,Total 8.9 mg/dL (8.5-10.1); Chloride 104 mmol/L (98-107); EST Glomerular Filtration Rate 41 mL/min (>60); Est Glom Filt Rate - Afr Amer 50 mL/min (>60); Glucose 146 mg/dL (74-106); Potassium 3.3 mmol/L (3.5-5.1); Sodium Level 141 mmol/L (136-145)
[2023-12-14 07:45] LABS: Bedside Glucose 161 mg/dL (74-106)
[2023-12-14] MEDS: Insulin Lispro 100 UNIT/ML INSULN.PEN SC ×3 (09:00→16:31)
[2023-12-14] MEDS: Insulin Glargine-YFGN 100 UNIT/ML Pen 18 UNIT SC (09:02)
[2023-12-14] MEDS: Multivitamins,Ther W-Minerals Tablet 1 TABLET PO (09:03)
[2023-12-14] MEDS: Potassium Chloride Oral Tablet 20 MEQ PO (09:03)
[2023-12-14] MEDS: Finasteride 5 MG Tablet PO (09:04)
[2023-12-14] MEDS: Furosemide 40 MG Tablet PO (09:04)
[2023-12-14] MEDS: Tolterodine Tartrate 4 MG CAP.SA PO (09:04)
[2023-12-14] MEDS: Amiodarone 200 MG Tablet 100 MG PO (09:04)
[2023-12-14] MEDS: Senna/Docusate Sodium 1 Tablet 2 TABLET PO ×2 (09:05→21:39)
[2023-12-14] MEDS: Clopidogrel Bisulfate 75 MG Tablet PO (09:05)
[2023-12-14] MEDS: Gabapentin 100 MG Capsule PO ×2 (09:08→16:30)
[2023-12-14] MEDS: APIXABAN 2.5 MG TABLET (WCH) PO ×2 (09:08→21:48)
[2023-12-14] MEDS: Nystatin Powder 15gm Bottle 1 APPLIC TOPICAL ×2 (09:09→21:50)
--- NOTE | 2023-12-14 10:49 | PN_ITS ---
Subjective Subjective Patient seen and examined. He had no complaints and had an uneventful night. Review of systems is otherwise negative. He is awaiting placement. Objective Data Objective Data Vital Signs: Vital Signs Temp Pulse Resp BP Pulse Ox O2 Del Method O2 Flow Rate 97.7 F L 92 15 139/67 H 97 Room Air 2 12/14/23 06:52 12/14/23 06:55 12/14/23 06:52 12/14/23 06:55 12/14/23 08:29 12/14/23 08:29 12/13/23 07:33 FiO2 21 12/12/23 01:44 Oxygen Flow Rate (L/min) 2 Oxygen Delivery Method Room Air Weight: 194 lb 0.108 oz Body Mass Index (BMI) 26.2 Intake & Output: Intake and Output for Last 24 Hours 12/12/23 12/13/23 12/14/23 23:59 23:59 23:59 Intake Total 580 / 580 Output Total 800 / 800 1800 / 1800 500 / 500 Balance -220 / -220 -1800 / -1800 -500 / -500 Lab / Micro Data 12/14/23 06:20 12/14/23 06:20 Labs: Laboratory Results - last 24 hr 12/13/23 11:10: POC Glucose 142 H 12/13/23 16:39: POC Glucose 125 H 12/13/23 22:09: POC Glucose 142 H 12/14/23 06:20: WBC 9.6, RBC 3.38 L, Hgb 10.0 L, Hct 31.0 L, MCV 91.7, MCH 29.6, MCHC 32.3, RDW Std Deviation 53.9 H, RDW Coeff of Cait 16.1 H, Plt Count 203, MPV 11.1, Immature Gran % (Auto) 0.400, Neut % (Auto) 77.2 H, Lymph % (Auto) 9.8 L, [place] % (Auto) 7.9, Eos % (Auto) 4.2, Baso % (Auto) 0.5, Absolute Neuts (auto) 7.4, Absolute Lymphs (auto) 0.94, Nucleated RBC % 0, Sodium 141, Potassium 3.3 L , Chloride 104, Carbon Dioxide 31.0, Anion Gap 6, BUN 33 H, Creatinine 1.70 H, Estim Creat Clear Calc 35.50, Est GFR (MDRD) Af Amer 50 L, Est GFR (MDRD) Non-Af 41 L, BUN/Creatinine Ratio 19.4, Glucose 146 H, Calcium 8.9 12/14/23 07:28: POC Glucose 161 H Physical Exam Const alert, oriented x3, no apparent distress and average body habitus Constitutional Narrative: frail, elderly. General Appearance: cooperative HEENT normocephalic, head/scalp atraumatic, hearing grossly normal bilaterally, moist oral mucous membranes and oropharynx normal Eyes PERRL and EOMs intact bilaterally Neck no lymphadenopathy, supple and no JVD Lymph Lymphatic: no lymphadenopathy noted and no lymphedema noted Resp normal respiratory effort, no retractions, no use of accessory muscles and clear to auscultation bilaterally Resp Narrative: mildly diminished breath sounds bibasally, no wheezes or crackles. On room air. Cardio regular rate, regular rhythm, S1 normal heart sound, S2 normal heart sound, no murmurs, no rub, no gallops and no clicks GI normal to inspection, nondistended, normoactive bowel sounds, soft to palpation, non-tender and non-distended Extremity normal capillary refill, no clubbing, cyanosis or edema and no calf tenderness Extremity Narrative: Intact dressing over left hip, at site of surgery. General Extremity: no tenderness to palpation of joints or extremities Skin Skin Narrative: intact dressing over left hip Neuro oriented x3, CN's II-XII intact bilaterally, no focal motor deficits and no sensory deficits noted Neuro Narrative: Left-sided hemiparesis from previous stroke with left lower extremity less affected than left upper extremity Sensorium / Orientation: awake, alert, oriented to person, oriented to place and oriented to time Speech: speech normal Motor Exam: general weakness Psych thought process normal, cooperative and affect normal Appearance: appropriate Assessment & Plan Assessment/Plan (1) Status post hip hemiarthroplasty: (2) Uncontrolled hypertension: (3) Closed displaced fracture of left femoral neck: PLAN: Plan #Left femoral fracture s/p left hemiarthroplasty * today is POD 3; had left hip hemiarthroplasty for left displaced femoral neck fracture on 12/11/2023. * orthopedic surgery on board * PO tylenol, PO oxycodone and iV dilaudid prn for pain * fall precautions * incentive spirometry * management as per orthopedic surgery * #Hypertension: on PO hydralazine and lasix. IV hydralazine prn #Paroxysmal afib: on amiodarone. Not chronically anticoagulated due to history of anemia. #HFrEF: not in exacerbation. on lasix. #Hypokalemia: K is 3.3. Will replace and trend. #Type 2 diabetes mellitus: * on lantus 18 units daily. * Insulin sliding scale. * Accuchecks ACHS. # History of BPH status post TURP: Had TURP in 2022. On doxazosin. #History of right pontine stroke: on plavix, # History of renal artery stenosis on the right, s/p stents. Stable. #Restless leg syndrome: On Requip #History of overactive bladder: * Oxybutynin on hold. * To discuss with PCP about discontinuing this on discharge due to increased risk of falls on muscle balance. #JOHN: On CPAP qhs #Hyperlipidemia: on ezetemibe. #CKD IIIb: Creatinine is 1.7 today which is around his baseline. #DVT prophylaxis:on eliquis 2.5mg bid. Disposition: will benefit from placement. * Charges/Coding Visit Charges Inpatient E&M: 61977 Subs Hosp L2
[2023-12-14 11:27] LABS: Bedside Glucose 229 mg/dL (74-106)
--- NOTE | 2023-12-14 11:36 | CASEMGMT ---
Social Work TCU is able to accept pt. Precert will be needed prior to admission and it is started at this time. Phone call to pt's Abigail and updated on acceptance and need for precert. Abigail agreeable to dc plan. Plan: TCU, pending precert ROBERTO Dias
[2023-12-14] MEDS: Potassium Chloride Oral Tablet 20 MEQ 40 MEQ PO (13:51)
[2023-12-14 16:52] LABS: Bedside Glucose 247 mg/dL (74-106)
[2023-12-14] MEDS: Gabapentin 300 MG Capsule PO (21:35)
[2023-12-14] MEDS: Pramipexole Di-HCl 0.125 MG Tablet PO (21:37)
[2023-12-14] MEDS: Doxazosin 4 MG Tablet PO (21:40)
[2023-12-14] MEDS: Sertraline 50 MG Tablet PO (21:40)
[2023-12-14] MEDS: Ezetimibe 10 MG Tablet PO (21:40)
[2023-12-14] MEDS: Latanoprost 0.005% 1 Bottle 1 DRP EACH EYE (21:43)
[2023-12-15 02:54] VITALS: BP 170/75; PULSE 84; RESP 15; TEMP 37.2; O2SAT 95
[2023-12-15 05:42] VITALS: PULSE 84
[2023-12-15] MEDS: Acetaminophen 500 MG Tablet 1000 MG PO ×2 (05:42→13:47)
[2023-12-15] MEDS: hydrALAZINE 50 MG Tablet 100 MG PO ×2 (05:42→13:47)
[2023-12-15 06:49] LABS: Absolute Lymphocyte Count 1.22 X10^3/uL (0.83-4.51); Absolute Neutrophil Count 6.6 X10^3/uL (2.0-7.7); Basophil# 0.06 X10^3/uL; Basophil% 0.6 % (0-1); Eosinophil# 0.46 X10^3/uL; Eosinophils% 4.9 % (0-5); Hemoglobin 9.3 g/dL (13.0-16.5); Lymphocyte # 1.22 X10^3/ul (0.83-4.51); Mean Corp Hgb Conc 33.2 g/dL (32-36); Mean Corpuscular Hgb 30.3 pg (27.0-32.0); Mean Corpuscular Volume 91.2 fL (80-94); Mean Platelet Vol. 10.2 fl (6.2-12.0); Monocyte# 1.01 X10^3/uL; Monocyte% 10.7 % (0-10); NRBC Flagged by Analyzer 0 % (0-5); Neutrophil % 70.3 % (47-70); Platelet Count 222 K/mm3 (150-450); RBC Distribution Width CV 15.9 % (11.6-14.6); RBC Distribution Width SD 53.1 fl (35.1-43.9); Red Blood Count 3.07 M/mm3 (4.6-6.2); White Blood Count 9.4 K/mm3 (4.4-11.0)
[2023-12-15 07:16] LABS: Anion Gap 3 (5-15); BUN 37 mg/dL (7-18); BUN/Creat Ratio 20.4 RATIO (10-20); Chloride 106 mmol/L (98-107); Creatinine, Serum 1.81 mg/dL (0.70-1.30); EST Glomerular Filtration Rate 38 mL/min (>60); Est Glom Filt Rate - Afr Amer 46 mL/min (>60); Estimated Creatinine Clearance 33.35 ml/min; Glucose 137 mg/dL (74-106); Potassium 3.4 mmol/L (3.5-5.1); Sodium Level 141 mmol/L (136-145)
[2023-12-15 07:56] VITALS: BP 106/59; PULSE 80; RESP 16; TEMP 36.2; O2SAT 96
[2023-12-15] MEDS: Potassium Chloride Oral Tablet 20 MEQ 40 MEQ PO (08:21)
[2023-12-15] MEDS: Insulin Glargine-YFGN 100 UNIT/ML Pen 18 UNIT SC (08:22)
[2023-12-15] MEDS: Gabapentin 100 MG Capsule PO (08:22)
[2023-12-15] MEDS: Potassium Chloride Oral Tablet 20 MEQ PO (08:22)
[2023-12-15] MEDS: Multivitamins,Ther W-Minerals Tablet 1 TABLET PO (08:24)
--- NOTE | 2023-12-15 09:39 | PN_ITS ---
Subjective Subjective Patient seen and examined. He had no active complaints. Review of systems is otherwise negative. He is awaiting placement. Potassium today is 3.4. Objective Data Objective Data Vital Signs: Vital Signs Temp Pulse Resp BP Pulse Ox O2 Del Method O2 Flow Rate 97.2 F L 80 16 106/59 L 96 Room Air 2 12/15/23 07:56 12/15/23 07:56 12/15/23 07:56 12/15/23 07:56 12/15/23 07:56 12/15/23 07:58 12/13/23 07:33 FiO2 21 12/12/23 01:44 Oxygen Flow Rate (L/min) 2 Oxygen Delivery Method Room Air Weight: 194 lb 0.108 oz Body Mass Index (BMI) 26.2 Intake & Output: Intake and Output for Last 24 Hours 12/13/23 12/14/23 12/15/23 23:59 23:59 23:59 Output Total 1800 / 1800 800 / 800 600 / 600 Balance -1800 / -1800 -800 / -800 -600 / -600 Lab / Micro Data 12/15/23 06:41 12/15/23 06:41 Labs: Laboratory Results - last 24 hr 12/14/23 11:06: POC Glucose 229 H 12/14/23 16:27: POC Glucose 247 H 12/15/23 06:41: WBC 9.4, RBC 3.07 L, Hgb 9.3 L, Hct 28.0 L, MCV 91.2, MCH 30.3, MCHC 33.2, RDW Std Deviation 53.1 H, RDW Coeff of Cait 15.9 H, Plt Count 222, MPV 10.2, Immature Gran % (Auto) 0.500, Neut % (Auto) 70.3 H, Lymph % (Auto) 13.0 L, [place] % (Auto) 10.7 H, Eos % (Auto) 4.9, Baso % (Auto) 0.6, Absolute Neuts (auto) 6.6, Absolute Lymphs (auto) 1.22, Nucleated RBC % 0, Sodium 141, Potassium 3.4 L , Chloride 106, Carbon Dioxide 32.0, Anion Gap 3 L, BUN 37 H, Creatinine 1.81 H, Estim Creat Clear Calc 33.35, Est GFR (MDRD) Af Amer 46 L, Est GFR (MDRD) Non-Af 38 L, BUN/Creatinine Ratio 20.4 H, Glucose 137 H, Calcium 9.0 Physical Exam Const alert, oriented x3, no apparent distress, average body habitus and well nourished; Negative for healthy appearing Constitutional Narrative: frail, elderly. General Appearance: cooperative HEENT normocephalic, head/scalp atraumatic, hearing grossly normal bilaterally, moist oral mucous membranes and oropharynx normal Eyes PERRL and EOMs intact bilaterally Neck no lymphadenopathy, supple and no JVD Lymph Lymphatic: no lymphadenopathy noted and no lymphedema noted Resp normal respiratory effort, no retractions, no use of accessory muscles and clear to auscultation bilaterally Resp Narrative: mildly diminished breath sounds bibasally, no wheezes or crackles. On room air. Cardio regular rate, regular rhythm, S1 normal heart sound, S2 normal heart sound, no murmurs, no rub, no gallops and no clicks GI normal to inspection, nondistended, normoactive bowel sounds, soft to palpation, non-tender and non-distended Extremity normal capillary refill, no clubbing, cyanosis or edema and no calf tenderness General Extremity: no tenderness to palpation of joints or extremities Skin Skin Narrative: surgical site on left hip healing well General Skin Exam: no breakdown Neuro oriented x3, CN's II-XII intact bilaterally, moves all extremities, no focal motor deficits and no sensory deficits noted Neuro Narrative: Left-sided hemiparesis from previous stroke with left lower extremity less affected than left upper extremity Sensorium / Orientation: awake, alert, oriented to person, oriented to place and oriented to time Speech: speech normal Motor Exam: general weakness Psych thought process normal, cooperative and affect normal Appearance: appropriate Assessment & Plan Assessment/Plan (1) Status post hip hemiarthroplasty: (2) Uncontrolled hypertension: (3) Closed displaced fracture of left femoral neck: PLAN: Plan #Left femoral fracture s/p left hemiarthroplasty * had surgery on 12/12/2023, today is POD 4; had left hip hemiarthroplasty for left displaced femoral neck fracture on 12/11/2023. * orthopedic surgery on board * PO tylenol, PO oxycodone and iV dilaudid prn for pain * fall precautions * incentive spirometry * management as per orthopedic surgery * #Hypertension: on PO hydralazine and lasix. IV hydralazine prn #Paroxysmal afib: on amiodarone. Not chronically anticoagulated due to history of anemia. #HFrEF: not in exacerbation. on lasix. Lasix held today due to upwards trend in BUN. #Hypokalemia: K is 3.4. Will replace and trend. #Type 2 diabetes mellitus: * on lantus 18 units daily. * Insulin sliding scale. * Accuchecks ACHS. # History of BPH status post TURP: Had TURP in 2022. On doxazosin. #History of right pontine stroke: on plavix, # History of renal artery stenosis on the right, s/p stents. Stable. #Restless leg syndrome: On Requip #History of overactive bladder: * Oxybutynin on hold. * To discuss with PCP about discontinuing this on discharge due to increased risk of falls on muscle balance. #JOHN: On CPAP qhs #Hyperlipidemia: on ezetemibe. #CKD IIIb: * Creatinine is 1.81 today which is around his baseline. * It is up from yesterday, when his Cr was 1.7, but it was 1.86 two days ago. He does have chronically elevated Cr due to his underlying CKD. * BUN is also up to 37 today, was 28 on 12/11/2023 when he was admitted. BUN is higher than on admission. He is on lasix, which can cause this. * I do think it is reasonable to hold his lasix today to see if his BUN will improve. #Constipation: * Patient has not a bowel movement for over a week. * He is on senna but says the only thing that works for him is MiraLAX or milk of magnesia. * Will add on milk of magnesia to the senna. * #DVT prophylaxis:on eliquis 2.5mg bid. Disposition:awaiting placement. * Charges/Coding Visit Charges Inpatient E&M: 31138 Subs Hosp L2
--- NOTE | 2023-12-15 10:49 | PCM.TXEXTCAR ---
Diet Diet Order/Speech Therapy: 12/11/23 14:08 Diet: Regular - General Routine Orders/Code Status Enema Type: Fleetz Enema Frequency: Daily PRN Suppository Type: Dulcolax 10mg Suppository Frequency: Daily PRN O2 Frequency: PRN Keep PO Greater than or Equal to (%): 90 Wound(s) LEFT HIP: Wound Type: Surgical Incision Therapies Weight Bearing: Weight bearing as tolerated Physical Therapy: Eval and Treat Occupational Therapy: Eval and Treat Problem/Diagnosis (1) Status post hip hemiarthroplasty: Status: Acute Code(s): Z96.649 - Presence of unspecified artificial hip joint (2) Uncontrolled hypertension: Status: Acute Code(s): I10 - Essential (primary) hypertension (3) Closed displaced fracture of left femoral neck: Status: Acute Code(s): S72.002A - Fracture of unspecified part of neck of left femur, initial encounter for closed fracture Plan #Left femoral fracture s/p left hemiarthroplasty had surgery on 12/12/2023, today is POD 4; had left hip hemiarthroplasty for left displaced femoral neck fracture on 12/11/2023. orthopedic surgery on board PO tylenol, PO oxycodone and iV dilaudid prn for pain fall precautions incentive spirometry management as per orthopedic surgery #Hypertension: on PO hydralazine and lasix. IV hydralazine prn #Paroxysmal afib: on amiodarone. Not chronically anticoagulated due to history of anemia. #HFrEF: not in exacerbation. on lasix. Lasix held today due to upwards trend in BUN. #Hypokalemia: K is 3.4. Will replace and trend. #Type 2 diabetes mellitus: on lantus 18 units daily. Insulin sliding scale. Accuchecks ACHS. # History of BPH status post TURP: Had TURP in 2022. On doxazosin. #History of right pontine stroke: on plavix, # History of renal artery stenosis on the right, s/p stents. Stable. #Restless leg syndrome: On Requip #History of overactive bladder: Oxybutynin on hold. To discuss with PCP about discontinuing this on discharge due to increased risk of falls on muscle balance. #JOHN: On CPAP qhs #Hyperlipidemia: on ezetemibe. #CKD IIIb: Creatinine is 1.81 today which is around his baseline. It is up from yesterday, when his Cr was 1.7, but it was 1.86 two days ago. He does have chronically elevated Cr due to his underlying CKD. BUN is also up to 37 today, was 28 on 12/11/2023 when he was admitted. BUN is higher than on admission. He is on lasix, which can cause this. I do think it is reasonable to hold his lasix today to see if his BUN will improve. #Constipation: Patient has not a bowel movement for over a week. He is on senna but says the only thing that works for him is MiraLAX or milk of magnesia. Will add on milk of magnesia to the senna. #DVT prophylaxis:on eliquis 2.5mg bid. Disposition:awaiting placement. Allergies/Procedures Done in Hospital Allergies meloxicam (From Mobic) Allergy (Intermediate, Verified 12/10/23 18:42) itching pravastatin (From Pravachol) Adverse Reaction (Mild, Verified 12/10/23 18:42) myalgia cholestyramine Adverse Reaction (Verified 12/10/23 18:42) hypoglycemia Type of Care/Length of Stay Estimated LOS: Convalescent Care Less Than 30 days Type of Care Needed: Skilled Rehab Potential: Fair Prognosis: Fair Additional Orders/Day of Discharge Day of Discharge: 12/15/23 Discharge Plan Admission Admit Date/Time: 12/10/23 23:32 Primary Reason for Your Visit: left femoral fracture due to mechanical fall Attending Provider: Jessica Meyer Primary Care Provider: Jennifer Watt Consulting Providers: Franklin Pradhan; Shon Tobin; Anai Sanchez Instructions Patient Instructions: Femur Fx Internal Fix Dc, Femur ORIF Discharge Orders/Prescriptions Prescriptions: New oxycodone 5 mg Tablet 5 mg PO Q4H PRN PRN (Reason: Pain Score 4-10 Or Pre Pt/Ot) 3 Days Qty: 18 0RF Continued multivitamin,[id number] [Complete Multivitamin] tablet 1 tab PO QDAY Venofer 200 mg iron/10 mL solution 300 mg .ROUTE .COMPLEX Qty: 15 2RF Rx Instructions: 300 mg IV every 2 weeks for 3 doses amiodarone 200 mg tablet 100 mg PO DAILY Qty: 45 3RF latanoprost 0.005 % drops 1 drp EACH EYE .COMPLEX Patient Comments: M-W- Rx Instructions: 1 drp into Each EYE mwf; @hs oxybutynin chloride 15 mg tablet extended release 24hr 15 mg PO DAILY potassium chloride 20 mEq Tablet,Er Particles/Crystals 20 meq PO DAILYCM 30 Days Qty: 30 0RF (DME) Handicap Placard See Rx Instructions .Route .MEDSUPPLY Qty: 1 0RF Rx Instructions: Length of time: 5 years (DME) pen needle, diabetic [BD Sanaz 2nd Gen Pen Needle] 32 gauge x needle See Rx Instructions .ROUTE .MEDSUPPLY Qty: 50 2RF Rx Instructions: use once daily to adminster insulin as directed. sertraline 50 mg tablet 50 mg PO QHS Qty: 90 3RF ezetimibe [Zetia] 10 mg tablet 10 mg PO QHS Qty: 90 3RF Rx Instructions: take at bedtime gabapentin 100 mg capsule 100 mg PO BID Qty: 180 3RF gabapentin 300 mg capsule 300 mg PO 2100 Qty: 90 3RF clopidogrel [Plavix] 75 mg tablet 75 mg PO DAILY Qty: 90 3RF furosemide 40 mg tablet 40 mg PO DAILY Qty: 90 3RF hydralazine 100 mg tablet 100 mg PO TID Qty: 270 3RF insulin lispro [Humalog KwikPen Insulin] 100 unit/mL insulin pen 1 unit subcut TIDAC PRN (Reason: SLIDING SCALE) Qty: 15 3RF pramipexole 0.125 mg tablet 0.125 mg PO QHS Qty: 90 3RF doxazosin 4 mg tablet 4 mg PO QHS Qty: 30 2RF insulin glargine-yfgn 100 unit/mL (3 mL) insulin pen 18 unit subcut BREAKFAST Qty: 15 3RF Referrals / Follow Up: Jennifer Watt MD [Primary Care Provider] - Within 1 Week Disposition Disposition (needs filled in before D/C Order can be placed): [facility]
--- NOTE | 2023-12-15 10:50 | DS.PCM_ITS ---
Providers Date of Admission: 12/10/23 Date of Discharge: 12/15/23 Primary Care Physician: Dr. Jennifer Watt MD Consultations 12/11/23 06:06 Consult: Orthopedics Routine Consulting Provider: Shon Tobin Reason for Consult: hip fracture EMERGENT Consult: No MD Notified: Yes Date Notified: 12/11/23 Time Notified: 06:06 Method of Notification: ED Physician Initiated Reason For Visit: LEFT FEMORAL NECK FRACTURE AFTER MECHANICAL FALL Diagnosis Discharge Diagnosis (1) Status post hip hemiarthroplasty: Status: Acute Code(s): Z96.649 - Presence of unspecified artificial hip joint (2) Uncontrolled hypertension: Status: Acute Code(s): I10 - Essential (primary) hypertension (3) Closed displaced fracture of left femoral neck: Status: Acute Code(s): S72.002A - Fracture of unspecified part of neck of left femur, initial encounter for closed fracture Plan #Left femoral fracture s/p left hemiarthroplasty * had surgery on 12/12/2023, today is POD 4; had left hip hemiarthroplasty for left displaced femoral neck fracture on 12/11/2023. * orthopedic surgery on board * PO tylenol, PO oxycodone and iV dilaudid prn for pain * fall precautions * incentive spirometry * management as per orthopedic surgery * #Hypertension: on PO hydralazine and lasix. IV hydralazine prn #Paroxysmal afib: on amiodarone. Not chronically anticoagulated due to history of anemia. #HFrEF: not in exacerbation. on lasix. Lasix held today due to upwards trend in BUN. #Hypokalemia: K is 3.4. Will replace and trend. #Type 2 diabetes mellitus: * on lantus 18 units daily. * Insulin sliding scale. * Accuchecks ACHS. # History of BPH status post TURP: Had TURP in 2022. On doxazosin. #History of right pontine stroke: on plavix, # History of renal artery stenosis on the right, s/p stents. Stable. #Restless leg syndrome: On Requip #History of overactive bladder: * Oxybutynin on hold. * To discuss with PCP about discontinuing this on discharge due to increased risk of falls on muscle balance. #JOHN: On CPAP qhs #Hyperlipidemia: on ezetemibe. #CKD IIIb: * Creatinine is 1.81 today which is around his baseline. * It is up from yesterday, when his Cr was 1.7, but it was 1.86 two days ago. He does have chronically elevated Cr due to his underlying CKD. * BUN is also up to 37 today, was 28 on 12/11/2023 when he was admitted. BUN is higher than on admission. He is on lasix, which can cause this. * I do think it is reasonable to hold his lasix today to see if his BUN will improve. #Constipation: * Patient has not a bowel movement for over a week. * He is on senna but says the only thing that works for him is MiraLAX or milk of magnesia. * Will add on milk of magnesia to the senna. * #DVT prophylaxis:on eliquis 2.5mg bid. Disposition:awaiting placement. * Medications at Discharge Home Medications multivitamin,[id number] (Complete Multivitamin tablet) 1 tab PO QDAY supplement 03/03/17 Handicap Placard #1 ea 02/12/21 latanoprost 0.005 % eye drops 1 drp EACH EYE .COMPLEX eyes 02/24/22 pen needle, diabetic 32 gauge x /32 (BD Sanaz 2nd Gen Pen Needle) #50 ea 06/17/22 sertraline 50 mg tablet 50 mg PO QHS mood #90 tabs 02/23/23 ezetimibe 10 mg tablet (Zetia) 10 mg PO QHS cholesterol #90 tabs 05/04/23 gabapentin 100 mg capsule 100 mg PO BID pain #180 caps 05/04/23 gabapentin 300 mg capsule 300 mg PO 2100 pain #90 caps 05/04/23 potassium chloride 20 mEq tablet,extended release(part/cryst) 20 meq PO DAILYCM 30 days #30 tabs 08/01/23 clopidogrel 75 mg tablet (Plavix) 75 mg PO DAILY blood thinner #90 tabs 08/12/23 amiodarone 200 mg tablet 100 mg (1/2 x 200 mg) PO DAILY #45 tabs 08/16/23 furosemide 40 mg tablet 40 mg PO DAILY #90 TABLETS 08/22/23 hydralazine 100 mg tablet 100 mg PO TID #270 tabs 09/22/23 iron sucrose 200 mg iron/10 mL intravenous solution (Venofer) 300 mg (15 mL) .Route .COMPLEX #15 mL 09/22/23 insulin lispro 100 unit/mL subcutaneous pen (Humalog KwikPen (U-100) Insulin) 1 unit (0.01 mL) subcut TIDAC PRN SLIDING SCALE #15 mL 10/13/23 oxybutynin chloride 15 mg tablet,extended release 24 hr 15 mg PO DAILY 10/28/23 pramipexole 0.125 mg tablet 0.125 mg PO QHS parkinsons #90 tabs 11/08/23 doxazosin 4 mg tablet 4 mg PO QHS Urinary Retention #30 tabs 11/15/23 insulin glargine-yfgn 100 unit/mL (3 mL) subcutaneous pen 18 unit (0.18 mL) subcut BREAKFAST Diabetes #15 mL 11/23/23 apixaban 5 mg tablet (Eliquis) 2.5 mg (1/2 x 5 mg) PO BID 28 days #56 tabs 12/15/23 oxycodone 5 mg tablet 5 mg PO Q4H PRN PRN Pain Score 4-10 Or Pre Pt/Ot 3 days #18 tabs 12/15/23 Hospital Course Operations - (left hemiarthroplasty) Procedures None Summary of Care Provided Minutes Spent on Discharge: 55 Hospital Course: Patient is an 83-year-old male with a past medical history as outlined was admitted to the ED on 12/10/2023 with a complaint of mechanical fall at home. He landed on his left side and started having severe pain. He had been walking and lost his balance and then fell. He also admitted to hitting his head but denied any loss of consciousness. Imaging done showed a left femoral neck fracture. Blood pressure also markedly elevated on admission. CT of the brain showed no acute intracranial pathology. He was admitted and managed for left hip fracture due to mechanical fall. Orthopedic surgery was consulted. Patient had a left hip hemiarthroplasty done on 12/11/2023. He tolerated the surgery well. He was placed on p.o. Eliquis 2.5 mg twice daily for DVT prophylaxis. Postop course was not complicated and he remained stable. He was [facility] on 12/15/2023. He was given a prescription for p.o. oxycodone 5 mg every 4 hours as needed for total of 18 tablets for 3 days. OARRS score was checked and no red flags were seen. He was given a prescription for p.o. Eliquis 2.5 mg twice daily for 28 days for DVT prophylaxis. He is follow-up with his primary care doctor with orthopedic surgery within 1 to 2 weeks. Patient seen and examined prior to discharge. He had no active complaints. Review of systems otherwise negative. Labs and vitals reviewed. Home medications reviewed and reconciled. Physical Exam Const alert, oriented x3, no apparent distress, average body habitus and well nourished; Negative for healthy appearing Constitutional Narrative: frail, elderly. General Appearance: cooperative and comfortable Orientation / Consciousness: awake Exam Limitations: no limitations HEENT normocephalic, head/scalp atraumatic, hearing grossly normal bilaterally, moist oral mucous membranes and oropharynx normal Mouth: oral and palatal mucosa normal Eyes PERRL and EOMs intact bilaterally Neck no lymphadenopathy, supple and no JVD Lymph Lymphatic: no lymphadenopathy noted and no lymphedema noted Resp normal respiratory effort, no retractions, no use of accessory muscles and clear to auscultation bilaterally Resp Narrative: mildly diminished breath sounds bibasally, no wheezes or crackles. On room air. Auscultation: Negative for rales, rhonchi or wheezes Cardio regular rate, regular rhythm, S1 normal heart sound, S2 normal heart sound, no murmurs, no rub, no gallops and no clicks GI normal to inspection, nondistended, normoactive bowel sounds, soft to palpation, non-tender and non-distended Extremity normal capillary refill, no clubbing, cyanosis or edema and no calf tenderness General Extremity: no tenderness to palpation of joints or extremities Skin Skin Narrative: surgical site on left hip healing well General Skin Exam: no breakdown Neuro oriented x3, CN's II-XII intact bilaterally and no sensory deficits noted Neuro Narrative: Left-sided hemiparesis from previous stroke with left lower extremity less affected than left upper extremity Sensorium / Orientation: awake, alert, oriented to person, oriented to place and oriented to time Speech: speech normal Motor Exam: general weakness Psych thought process normal, cooperative and affect normal Appearance: appropriate Weight / BMI Weight Weight: 194 lb 0.108 oz Body Mass Index (BMI) 26.2 ABG / Lab / Microbiology Data 12/15/23 06:41 12/15/23 06:41 Laboratory: Laboratory Results - last 24 hr 12/14/23 11:06: POC Glucose 229 H 12/14/23 16:27: POC Glucose 247 H 12/15/23 06:41: WBC 9.4, RBC 3.07 L, Hgb 9.3 L, Hct 28.0 L, MCV 91.2, MCH 30.3, MCHC 33.2, RDW Std Deviation 53.1 H, RDW Coeff of Cait 15.9 H, Plt Count 222, MPV 10.2, Immature Gran % (Auto) 0.500, Neut % (Auto) 70.3 H, Lymph % (Auto) 13.0 L, [place] % (Auto) 10.7 H, Eos % (Auto) 4.9, Baso % (Auto) 0.6, Absolute Neuts (auto) 6.6, Absolute Lymphs (auto) 1.22, Nucleated RBC % 0, Sodium 141, Potassium 3.4 L , Chloride 106, Carbon Dioxide 32.0, Anion Gap 3 L, BUN 37 H, Creatinine 1.81 H, Estim Creat Clear Calc 33.35, Est GFR (MDRD) Af Amer 46 L, Est GFR (MDRD) Non-Af 38 L, BUN/Creatinine Ratio 20.4 H, Glucose 137 H, Calcium 9.0 D/C Instructions Discharge Diet: Low fat / Low cholesterol Discharge Activity: Return to Normal Activity Weight Bearing Status: Weight bearing as tolerated Call your doctor if you observe: Fever of 101 or Higher, Shortness of breath, Dizziness, Swelling in the ankles and Chest pain Meaningful Use Info Meaningful Use Meaningful Use Diagnoses (Choose all that apply): None applicable Ischemic Stroke Statin Dosing Therapy Reference: STATIN DOSE THERAPY REFERENCE: * Patients > 75 years receive moderate or high dose statin therapy. * Patients 75 years or YOUNGER should receive HIGH intensity statin dose unless contraindicated. You will be required to document reason for non-treatment if statin daily dose does not meet guidelines. HIGH DOSE STATIN THERAPY DAILY Atorvastatin > than or = to 40 mg Rosuvastatin > than or = to 20 mg Amlodipine + Atorvastatin > than or = to 2.5/40 mg Ezetimibe + Simvastatin 10/80 mg Simvastatin 80mg Discharge Plan Admission Admit Date/Time: 12/10/23 23:32 Primary Reason for Your Visit: left femoral fracture due to mechanical fall Attending Provider: Jessica Meyer Primary Care Provider: Jennifer Watt Consulting Providers: Franklin Pradhan; Shon Tobin; Anai Sanchez Instructions Patient Instructions: Femur Fx Internal Fix Dc, Femur ORIF Discharge Orders/Prescriptions Prescriptions: New oxycodone 5 mg Tablet 5 mg PO Q4H PRN PRN (Reason: Pain Score 4-10 Or Pre Pt/Ot) 3 Days Qty: 18 0RF Eliquis 5 mg Tablet 2.5 mg PO BID 28 Days Qty: 56 0RF Continued multivitamin,[id number] [Complete Multivitamin] tablet 1 tab PO QDAY Venofer 200 mg iron/10 mL solution 300 mg .ROUTE .COMPLEX Qty: 15 2RF Rx Instructions: 300 mg IV every 2 weeks for 3 doses amiodarone 200 mg tablet 100 mg PO DAILY Qty: 45 3RF latanoprost 0.005 % drops 1 drp EACH EYE .COMPLEX Patient Comments: M-W-F Rx Instructions: 1 drp into Each EYE mwf; @hs oxybutynin chloride 15 mg tablet extended release 24hr 15 mg PO DAILY potassium chloride 20 mEq Tablet,Er Particles/Crystals 20 meq PO DAILYCM 30 Days Qty: 30 0RF (DME) Handicap Placard See Rx Instructions .Route .MEDSUPPLY Qty: 1 0RF Rx Instructions: Length of time: 5 years (DME) pen needle, diabetic [BD Sanaz 2nd Gen Pen Needle] 32 gauge x 5/32 needle See Rx Instructions .ROUTE .MEDSUPPLY Qty: 50 2RF Rx Instructions: use once daily to adminster insulin as directed. sertraline 50 mg tablet 50 mg PO QHS Qty: 90 3RF ezetimibe [Zetia] 10 mg tablet 10 mg PO QHS Qty: 90 3RF Rx Instructions: take at bedtime gabapentin 100 mg capsule 100 mg PO BID Qty: 180 3RF gabapentin 300 mg capsule 300 mg PO 2100 Qty: 90 3RF clopidogrel [Plavix] 75 mg tablet 75 mg PO DAILY Qty: 90 3RF furosemide 40 mg tablet 40 mg PO DAILY Qty: 90 3RF hydralazine 100 mg tablet 100 mg PO TID Qty: 270 3RF insulin lispro [Humalog KwikPen Insulin] 100 unit/mL insulin pen 1 unit subcut TIDAC PRN (Reason: SLIDING SCALE) Qty: 15 3RF pramipexole 0.125 mg tablet 0.125 mg PO QHS Qty: 90 3RF doxazosin 4 mg tablet 4 mg PO QHS Qty: 30 2RF insulin glargine-yfgn 100 unit/mL (3 mL) insulin pen 18 unit subcut BREAKFAST Qty: 15 3RF Referrals / Follow Up: Jennifer Watt MD [Primary Care Provider] - Within 1 Week Disposition Disposition (needs filled in before D/C Order can be placed): Detention Facility Charges/Coding Visit Charges Inpatient E&M: 23614 Disch Hosp >30min
[2023-12-15] MEDS: Finasteride 5 MG Tablet PO (11:19)
[2023-12-15] MEDS: Amiodarone 200 MG Tablet 100 MG PO (11:19)
[2023-12-15] MEDS: APIXABAN 2.5 MG TABLET (WCH) PO (11:19)
[2023-12-15] MEDS: Clopidogrel Bisulfate 75 MG Tablet PO (11:19)
[2023-12-15] MEDS: Senna/Docusate Sodium 1 Tablet 2 TABLET PO (11:19)
[2023-12-15] MEDS: Polyethylene Glycol 3350 17 GM PACKET PO (11:19)
[2023-12-15] MEDS: Nystatin Powder 15gm Bottle 1 APPLIC TOPICAL (11:20)
[2023-12-15] MEDS: Tolterodine Tartrate 4 MG CAP.SA PO (11:20)
[2023-12-15] MEDS: Insulin Lispro 100 UNIT/ML INSULN.PEN SC (11:22)
[2023-12-15 11:32] VITALS: BP 115/72; PULSE 72; RESP 16; TEMP 36.6; O2SAT 96
[2023-12-15 11:52] LABS: Bedside Glucose 246 mg/dL (74-106)
--- NOTE | 2023-12-15 13:05 | NURSING ---
spoke with TCU, they are not ready for pt yet, as room still being cleaned. informed that pt is awaiting his lunch as well.
[2023-12-15 13:47] VITALS: PULSE 70
--- NOTE | 2023-12-15 13:56 | CASEMGMT ---
Social Work Pt has been accepted by TCU and precert has been obtained. Physician notified and pt is ready for dc today. Phone call to pt's and updated on dc to TCU today. is agreeable. Ondina in TCU notified and dc orders faxed. Nursing updated. Disposition: TCU, skilled level of care. ROBERTO Gregory
[2023-12-15 14:23] VITALS: PULSE 79
== END 2023-12-15 16:05 | disposition skilled nursing facility (03) | DRG 522 ==
LOC: ED 21:43 → MS3 23:43
PROVIDERS: Internal Medicine; Student in an Organized Health Care Education/Training Program; Admitting Provider Internal Medicine; Emergency Provider Emergency Medicine; PCP Internal Medicine; Visit Provider Student in an Organized Health Care Education/Training Program
PROC: 0SRS0JA Replacement of Left Hip Joint, Femoral Surface with Synthetic Substitute, Uncemented, Open Approach (ICD-10-PCS; CPT 27125; principal; 2023-12-11 12:00)
DX: S72.002A Fracture of unspecified part of neck of left femur, initial encounter for closed fracture (principal); I69.354 Hemiplegia and hemiparesis following cerebral infarction affecting left non-dominant side; I13.0 Hypertensive heart and chronic kidney disease with heart failure and stage 1 through stage 4 chronic kidney disease, or unspecified chronic kidney disease; I50.22 Chronic systolic (congestive) heart failure; S09.90XA Unspecified injury of head, initial encounter; D50.9 Iron deficiency anemia, unspecified; E11.22 Type 2 diabetes mellitus with diabetic chronic kidney disease; G25.81 Restless legs syndrome; I48.0 Paroxysmal atrial fibrillation; N18.32 Chronic kidney disease, stage 3b; F32.A Depression, unspecified; G47.33 Obstructive sleep apnea (adult) (pediatric); E11.40 Type 2 diabetes mellitus with diabetic neuropathy, unspecified; M47.819 Spondylosis without myelopathy or radiculopathy, site unspecified; I87.8 Other specified disorders of veins; E11.51 Type 2 diabetes mellitus with diabetic peripheral angiopathy without gangrene; I25.10 Atherosclerotic heart disease of native coronary artery without angina pectoris; Z79.4 Long term (current) use of insulin; E11.39 Type 2 diabetes mellitus with other diabetic ophthalmic complication; E78.5 Hyperlipidemia, unspecified; E87.6 Hypokalemia; W19.XXXA Unspecified fall, initial encounter; K59.00 Constipation, unspecified; N32.81 Overactive bladder; Z79.1 Long term (current) use of non-steroidal anti-inflammatories (NSAID); H40.9 Unspecified glaucoma; Z95.5 Presence of coronary angioplasty implant and graft; N40.0 Benign prostatic hyperplasia without lower urinary tract symptoms; Z87.760 Personal history of (corrected) congenital diaphragmatic hernia or other congenital diaphragm malformations
CPT/HCPCS: 36415; 70450; 72125; 73502; 80048; 80053; 82306; 82962; 83036; 83735; 84100; 84443; 85025; 86850; 86900; 86901; 88307; 88311; 90662; 93005; 94002; 94668; 97162; 97166; 97530; 99283; C1776; J7030; J7040; J7120; A4216; J2405

== ENCOUNTER 2023-12-15 16:24 | Inpatient (IN) | payer MEDICARE, SELFPAY ==
[2023-12-15 16:47] VITALS: BP 143/69; PULSE 69; RESP 16; TEMP 36.3; O2SAT 98; BMI 23.3
--- NOTE | 2023-12-15 16:50 | HP.PCM_ITS ---
HPI - General General Date of Admission: 12/15/23 Date of Service: 12/15/23 Chief Complaint: Here for rehabilitation. HPI Narrative 12/10/2023 SHAISTA CLOUD, is a 83 Male who presents to [facility] ED with fall. Fell, hit head. CT head okay, CT cervical spine okay. X-ray shows left hip fracture. 12/10/[address] [facility]. Prepare for surgery left hip fracture. PT/OT for discharge planning. 12/11/2023 Tylenol, Oxycodone, Dilaudid for pain. 12/11/2023 Dr. Tobin performed left hip hemiarthroplasty. 12/12/2023, Comfortable, eating breakfast. Incentive spirometry. Hydralazine IV prn high blood pressure. 12/13/2023 Comfortable, pain well controlled. 12/14/2023 To placed for urinary retention. 12/14/2023 Await placement. K 3.3, replace potassium. 12/15/2023 Admit to TCU with debility, here for rehabilitation, strengthening, prior to discharge to [facility]. [facility] Medical History Fall Current use of insulin Back pain due to injury Restless legs Syncope Kidney stones PAF (paroxysmal atrial fibrillation) CHF (congestive heart failure) Anemia Weakness Wears glasses Depression Rash Insulin dependent diabetes mellitus Walker as ambulation aid Prostate disease Low iron Restless legs Stroke/cerebrovascular accident Dietary restriction Non-smoker BiPAP (biphasic positive airway pressure) dependence History of edema History of echocardiogram Cardiology follow-up encounter BPH (benign prostatic hyperplasia) Congestive heart failure Pneumonia Incontinence Limb weakness Unsteadiness Chronic anemia Hypertension Coronary artery disease Right renal artery stenosis Fatigue Ventricular tachycardia seen on director of cardiac cath lab (02/20/21) Peripheral vascular occlusive disease Type 2 diabetes mellitus Hyperlipidemia Essential hypertension History of CVA (cerebrovascular accident) (12/2020) Obstructive Sleep Apnea-Hypopnea Syndrome Absent pedal pulses Skin lesion of face Normocytic normochromic anemia Depression Dysphagia Proteinuria due to type 2 diabetes mellitus Facial droop due to acute stroke Acute left-sided muscle weakness Osteoarthritis Right pontine CVA Recurrent inguinal hernia of right side without obstruction or gangrene Home Medications ?Medication ?Instructions ?Recorded ?Last Taken ?Type multivitamin,ob-rebs-prpnobej 1 tab PO QDAY supplement 03/03/17 12/15/23 History (Complete Multivitamin tablet) Handicap Placard #1 ea 02/12/21 Unknown Rx latanoprost 0.005 % eye drops 1 drp EACH EYE .COMPLEX eyes 02/24/22 12/14/23 History pen needle, diabetic 32 gauge x #50 ea 06/17/22 Unknown Rx 32 (BD Sanaz 2nd Gen Pen Needle) sertraline 50 mg tablet 50 mg PO QHS mood #90 tabs 02/23/23 12/14/23 Rx ezetimibe 10 mg tablet (Zetia) 10 mg PO QHS cholesterol #90 tabs 05/04/23 12/14/23 Rx gabapentin 100 mg capsule 100 mg PO BID pain #180 caps 05/04/23 12/15/23 Rx gabapentin 300 mg capsule 300 mg PO 2100 pain #90 caps 05/04/23 12/14/23 Rx potassium chloride 20 mEq 20 meq PO DAILYCM supplement 30 08/01/23 12/14/23 Rx tablet,extended release(part/cryst) days #30 tabs clopidogrel 75 mg tablet (Plavix) 75 mg PO DAILY blood thinner #90 08/12/23 12/15/23 Rx tabs amiodarone 200 mg tablet 100 mg (1/2 x 200 mg) PO DAILY BP 08/16/23 Unknown Rx #45 tabs furosemide 40 mg tablet 40 mg PO DAILY Fluid retention #90 08/22/23 12/14/23 Rx TABLETS hydralazine 100 mg tablet 100 mg PO TID BP #270 tabs 09/22/23 12/15/23 Rx iron sucrose 200 mg iron/10 mL 300 mg (15 mL) .Route .COMPLEX 09/22/23 Unknown Rx intravenous solution (Venofer) supplement #15 mL oxybutynin chloride 15 mg 15 mg PO DAILY bladder 10/28/23 12/15/23 History tablet,extended release 24 hr pramipexole 0.125 mg tablet 0.125 mg PO QHS parkinsons #90 tabs 11/08/23 12/14/23 Rx doxazosin 4 mg tablet 4 mg PO QHS Urinary Retention #30 11/15/23 12/14/23 Rx tabs insulin glargine-yfgn 100 unit/mL 18 unit (0.18 mL) subcut BREAKFAST 11/23/23 12/14/23 Rx (3 mL) subcutaneous pen Diabetes #15 mL apixaban 5 mg tablet (Eliquis) 2.5 mg (1/2 x 5 mg) PO BID Blood 12/15/23 12/15/23 Rx thinner 28 days #56 tabs oxycodone 5 mg tablet 5 mg PO Q4H PRN PRN Pain Score 12/15/23 Unknown Rx 4-10 Or Pre Pt/Ot 3 days #18 tabs Allergy/AdvReac Type Severity Reaction Status Date / Time meloxicam (From Mobic) Allergy Intermediate itching Verified 12/10/23 18:42 pravastatin (From Pravachol) AdvReac Mild myalgia Verified 12/10/23 18:42 cholestyramine AdvReac hypoglycemi Verified 12/10/23 18:42 a Family History Mother Hypertension Cancer Father Heart disease Diabetes Surgical History History of prostate surgery H/O transurethral resection of prostate (01/12/23) Hx of cystoscopy Hx of total knee arthroplasty History of hydrocelectomy History of cataract surgery History of lumbar laminectomy History of herniorrhaphy History of stent insertion of renal artery (08/05/21) Social History household members: spouse and other details: Abigail is his 's name housing: house number of children: 2 current occupational status: retired and other details: worked for [employer] prior to retiring leisure activities: other Smoking Status: Never smoker Electronic Cigarette Use: not used second hand exposure: No alcohol intake: former substance use type: does not use what type of physical activity do you participate in: walking frequency: 1-2 times per week inés/buddhist: None seatbelt use: always ROS Constitutional Constitutional: Reports weakness; Denies chills, fever(s) or weight gain ENT HEENT: Denies headache(s), nasal congestion or nasal discharge Cardiovascular Cardiovascular: Denies chest pain or palpitations Respiratory/Chest Respiratory/Chest: Denies cough, excessive phlegm production or shortness of breath with exertion Gastrointestinal Gastrointestinal: Denies abdominal pain, nausea or vomiting Genitourinary Genitourinary: Denies dysuria Musculoskeletal Musculoskeletal: Denies joint pain or joint swelling Integumentary Integumentary: Denies rash or wounds Neurologic Neurologic: Denies focal weakness, numbness or tingling Psychiatric Psychiatric: Denies anxiety, auditory hallucinations, depression, homicidal ideation or suicidal ideation Physical Exam Const alert General Appearance: cooperative HEENT normocephalic Eyes PERRL and EOMs intact bilaterally Neck supple, no JVD and no carotid bruits Resp normal respiratory effort, normal air movement and clear to auscultation bilaterally Cardio regular rate and regular rhythm GI normal to inspection, nondistended, normoactive bowel sounds, non-tender and non-distended Bladder / Kidney Exam: catheter in place urethral Extremity normal capillary refill Extremity Narrative: Left shoulder brace. General Extremity: Negative for edema Skin no rashes or lesions noted General Skin Exam: no breakdown Psych affect normal Appearance: appropriate Assessment & Plan Assessment/Plan (1) Debility: (2) Closed displaced fracture of left femoral neck: (3) Status post hip hemiarthroplasty: (4) Urinary retention: (5) Hypokalemia: (6) Heart failure with preserved ejection fraction: (7) Atrial fibrillation: (8) Stroke: (9) BPH (benign prostatic hyperplasia): (10) Hyperlipidemia: (11) Type 2 diabetes mellitus with hyperglycemia: (12) Diabetic polyneuropathy: (13) Glaucoma: (14) Restless leg syndrome: (15) Depression: PLAN: Plan 83 year old male with below past medical history hospitalized for left hip fracture, underwent left hip hemiarthroplasty 12/11/[address] Tobin, postoperative course complicated by urinary retention requiring to catheter, hypokalemia, admitted to TCU with debility, here for rehabilitation, strengthening, prior to [facility] . * Debility - PT/OT. * Pain - Tylenol 1000mg q8, Oxycodone 5mg q4 prn pain (4-10). * Bowel - senna/colace 2 tablets bid, Dulcolax 10mg pr daily prn. * Adult immunization - Administer pneumonia vaccine, covid vaccine, flu vaccine as appropriate. * DVT prophylaxis - on Eliquis. * Atrial fibrillation - Amiodarone 100mg daily, Eliquis 2.5mg bid. * Stroke - Plavix 75mg daily, Eliquis 2.5mg bid. * BPH - Doxazosin 4mg qhs, To catheter, voiding trials. * Hyperlipidemia - Zetia 10mg qhs. * HFpEF - Hydralazine 100mg tid, Furosemide 40mg daily. * Diabetic polyneuropathy - Gabapentin 100mg bidcm, 300mg qhs. * Diabetes Mellitus II - Glargine 18 units qam. * Glaucoma - Latanoprost 1gtt ou mwf. * Nutrition - MVI 1 tablet daily. * Hypokalemia - KCL 20meq daily. * Restless leg syndrome - Mirapex 0.125mg qhs. * Depression - Sertraline 50mg qhs, stable chronic long term care phlebotomist use, GDR not recommended. * Overactive bladder - Tolterodine 4mg daily.
[2023-12-15] MEDS: Gabapentin 100 MG Capsule PO (18:11)
[2023-12-15 20:49] VITALS: PULSE 65
[2023-12-15] MEDS: Menthol/Lanolin/Calamine/Znox 113 GM Tube 1 APPLIC TOPICAL (22:10)
[2023-12-15] MEDS: Gabapentin 300 MG Capsule PO (22:10)
[2023-12-15 22:11] VITALS: BP 167/67; PULSE 71
[2023-12-15] MEDS: hydrALAZINE 50 MG Tablet 100 MG PO (22:11)
[2023-12-15] MEDS: Doxazosin 4 MG Tablet PO (22:11)
[2023-12-15] MEDS: Ezetimibe 10 MG Tablet PO (22:11)
[2023-12-15] MEDS: Acetaminophen 500 MG Tablet 1000 MG PO (22:11)
[2023-12-15] MEDS: APIXABAN 2.5 MG TABLET (WCH) PO (22:12)
[2023-12-15] MEDS: Senna/Docusate Sodium 1 Tablet 2 TABLET PO (22:12)
[2023-12-15] MEDS: Pramipexole Di-HCl 0.125 MG Tablet PO (22:12)
[2023-12-15] MEDS: Sertraline 50 MG Tablet PO (22:12)
[2023-12-15] MEDS: Glucerna Shake 120 ML LIQUID PO (22:13)
[2023-12-15] MEDS: 0.9% Saline Lock 10 ML Syringe IV (22:19)
[2023-12-16] MEDS: oxyCODONE 5 MG Tablet PO (00:17)
[2023-12-16 05:58] VITALS: BP 172/72; PULSE 67; O2SAT 95
[2023-12-16] MEDS: Acetaminophen 500 MG Tablet 1000 MG PO ×3 (05:58→21:23)
[2023-12-16 05:59] VITALS: BP 172/72; PULSE 67
[2023-12-16] MEDS: hydrALAZINE 50 MG Tablet 100 MG PO ×3 (05:59→21:24)
[2023-12-16 06:02] LABS: Absolute Lymphocyte Count 1.24 X10^3/uL (0.83-4.51); Absolute Neutrophil Count 5.3 X10^3/uL (2.0-7.7); Basophil# 0.08 X10^3/uL; Eosinophils% 6.2 % (0-5); Hematocrit 29.7 % (40-54); Hemoglobin 9.5 g/dL (13.0-16.5); Lymphocyte # 1.24 X10^3/ul (0.83-4.51); Lymphocyte % 15.3 % (19-41); Mean Corpuscular Hgb 30.1 pg (27.0-32.0); Mean Platelet Vol. 10.2 fl (6.2-12.0); Monocyte# 0.88 X10^3/uL; Monocyte% 10.9 % (0-10); NRBC Flagged by Analyzer 0 % (0-5); Neutrophil # 5.32 X10^3/uL (2.7-7.7); Neutrophil % 65.9 % (47-70); Platelet Count 247 K/mm3 (150-450); RBC Distribution Width CV 15.9 % (11.6-14.6); RBC Distribution Width SD 54.6 fl (35.1-43.9); Red Blood Count 3.16 M/mm3 (4.6-6.2); White Blood Count 8.1 K/mm3 (4.4-11.0)
[2023-12-16 06:28] LABS: Anion Gap 4 (5-15); BUN 34 mg/dL (7-18); BUN/Creat Ratio 22.5 RATIO (10-20); Chloride 109 mmol/L (98-107); Creatinine, Serum 1.51 mg/dL (0.70-1.30); EST Glomerular Filtration Rate 47 mL/min (>60); Est Glom Filt Rate - Afr Amer 57 mL/min (>60); Estimated Creatinine Clearance 39.97 ml/min; Glucose 163 mg/dL (74-106); Potassium 3.7 mmol/L (3.5-5.1); Sodium Level 143 mmol/L (136-145)
[2023-12-16 06:37] LABS: Bedside Glucose 155 mg/dL (74-106)
[2023-12-16] MEDS: Glucerna Shake 120 ML LIQUID PO ×4 (07:53→21:24)
[2023-12-16] MEDS: Insulin Glargine-YFGN 100 UNIT/ML Pen 18 UNIT SC (07:54)
[2023-12-16] MEDS: Multivitamins,Ther W-Minerals Tablet 1 TABLET PO (07:56)
[2023-12-16] MEDS: Potassium Chloride Oral Tablet 20 MEQ PO (07:56)
[2023-12-16] MEDS: Amiodarone 200 MG Tablet 100 MG PO (07:57)
[2023-12-16] MEDS: Tolterodine Tartrate 4 MG CAP.SA PO (07:57)
[2023-12-16] MEDS: Furosemide 40 MG Tablet PO (07:58)
[2023-12-16] MEDS: Clopidogrel Bisulfate 75 MG Tablet PO (07:58)
[2023-12-16] MEDS: APIXABAN 2.5 MG TABLET (WCH) PO ×2 (07:58→21:24)
[2023-12-16] MEDS: Senna/Docusate Sodium 1 Tablet 2 TABLET PO ×2 (07:59→21:23)
[2023-12-16] MEDS: Menthol/Lanolin/Calamine/Znox 113 GM Tube 1 APPLIC TOPICAL ×2 (08:02→21:24)
[2023-12-16] MEDS: Gabapentin 100 MG Capsule PO ×2 (08:02→16:42)
[2023-12-16] MEDS: Tuberculin,Purif.prot.deriv. 50 TU/ML Vial 0.1 ML ID (09:16)
[2023-12-16 10:00] VITALS: PULSE 86; RESP 18
--- NOTE | 2023-12-16 10:26 | NURSING ---
Psychiatric Therapist Note, Activity Asset: Aicha Singh has been a resident of [facility] in the past and remains independent in his choice of daily activities. He has his tablet, smartphone and uses those most of the day for his entertainment. His family will bring items in as well. He has stated he is not interested in the cloud architect or the therapy dog and prefers independent in room activities over group as in the past. Staff will encourage out of room activities, remind him of weekly activities and respect his right to say no.
--- NOTE | 2023-12-16 10:38 | PCM.PN.DRR ---
Documented by User: Neftali Howard 12/16/23 10:57 TCU RX Drug Regimen Review Subjective/Objective Subjective/Objective: Subjective: TCU admission note. 83 year old male with below past medical history hospitalized for left hip fracture, underwent left hip hemiarthroplasty 12/11/[address] Tobin, postoperative course complicated by urinary retention requiring to catheter, hypokalemia, admitted to TCU with debility, here for rehabilitation, strengthening, prior to discharge [facility] with . Objective: Allergies meloxicam (From Mobic) Allergy (Intermediate, Verified 12/10/23 18:42) itching pravastatin (From Pravachol) Adverse Reaction (Mild, Verified 12/10/23 18:42) myalgia cholestyramine Adverse Reaction (Verified 12/10/23 18:42) hypoglycemia Current Medications Generic Name Dose Route Start Last Admin Trade Name Freq PRN Reason Stop Dose Admin Acetaminophen 1,000 mg 12/15/23 22:00 12/16/23 05:58 Acetaminophen 500 Mg Tablet PO 1,000 mg Q8 LJ Administration Amiodarone HCl 100 mg 12/16/23 10:00 12/16/23 07:57 Amiodarone 200 Mg Tablet PO 100 mg DAILY LJ Administration Apixaban 2.5 mg 12/15/23 22:00 12/16/23 07:58 Apixaban 2.5 Mg Tablet (Wch) PO 2.5 mg BID LJ Administration Bisacodyl 10 mg 12/15/23 16:48 Bisacodyl 10 Mg Suppository RC DAILY PRN Constipation Calamine/Phenol 1 applic 12/15/23 22:00 12/16/23 08:02 Menthol/Lanolin/Calamine/Znox 113 Gm Tube TOPICAL 1 applic BID LJ Administration Protocol Clopidogrel Bisulfate 75 mg 12/16/23 10:00 12/16/23 07:58 Clopidogrel Bisulfate 75 Mg Tablet PO 75 mg DAILY LJ Administration Doxazosin Mesylate 4 mg 12/15/23 22:00 12/15/23 22:11 Doxazosin 4 Mg Tablet PO 4 mg QHS LJ Administration Protocol Ezetimibe 10 mg 12/15/23 22:00 12/15/23 22:11 Ezetimibe 10 Mg Tablet PO 10 mg QHS LJ Administration Furosemide 40 mg 12/16/23 10:00 12/16/23 07:58 Furosemide 40 Mg Tablet PO 40 mg DAILY [facility] Administration Protocol Gabapentin 300 mg 12/15/23 21:00 12/15/23 22:10 Gabapentin 300 Mg Capsule PO 300 mg 2100 [facility] Administration Gabapentin 100 mg 12/15/23 17:00 12/16/23 08:02 Gabapentin 100 Mg Capsule PO 100 mg BIDCM [facility] Administration Hydralazine HCl 100 mg 12/15/23 22:00 12/16/23 05:59 Hydralazine 50 Mg Tablet PO 100 mg TID [facility] Administration Insulin Glargine 18 unit 12/16/23 08:00 12/16/23 07:54 Insulin Glargine-Yfgn 100 Unit/Ml Pen SC 18 unit BREAKFAST [facility] Administration Latanoprost 1 drp 12/16/23 22:00 Latanoprost 0.005% 1 Bottle EACH EYE [id number] [facility] Multivitamins/Minerals 1 tablet 12/16/23 08:00 12/16/23 07:56 Multivitamins,Ther W-Minerals Tablet PO 1 tablet BREAKFAST [facility] Administration Nutritional Formula (Lactose Free) 120 ml 12/15/23 22:00 12/16/23 09:16 Glucerna Shake 120 Ml Liquid PO 120 ml 4X/DAY [facility] Administration Oxycodone HCl 5 mg 12/15/23 16:45 12/16/23 00:17 Oxycodone 5 Mg Tablet PO 5 mg Q4H PRN PRN Administration Pain Score 4-10 Or Pre Pt/Ot Potassium Chloride 20 meq 12/16/23 08:00 12/16/23 07:56 Potassium Chloride Oral [facility] Pramipexole Dihydrochloride 0.125 mg 12/15/23 22:00 12/15/23 22:12 Pramipexole Di-Hcl 0.125 Mg Tablet PO 0.125 mg QHS [facility] Administration Senna/Docusate Sodium 2 tablet 12/15/23 22:00 12/16/23 07:59 Senna/Docusate Sodium 1 Tablet PO 2 tablet BID [facility] Administration Sertraline HCl 50 mg 12/15/23 22:00 12/15/23 22:12 Sertraline 50 Mg Tablet PO 50 mg QHS [facility] Administration Sodium Chloride 10 - 40 ml 12/15/23 17:23 12/15/23 22:19 0.9% Saline Lock 10 Ml Syringe IV 10 ml UD PRN Administration SALINE FLUSH Tolterodine Tartrate 4 mg 12/16/23 10:00 12/16/23 07:57 Tolterodine Tartrate 4 Mg Cap.Sa PO 4 mg DAILY LJ Administration Tuberculin PPD 0.1 ml 12/23/23 10:00 Tuberculin,Purif.Prot.Deriv. 50 Tu/Ml Vial ID 12/23/23 10:01 X1 ONE Problem List Diabetic polyneuropathy (Acute) Type 2 diabetes mellitus with hyperglycemia (Acute) Atrial fibrillation (Acute) Status post hip hemiarthroplasty (Acute) Closed displaced fracture of left femoral neck (Acute) Urinary retention (Acute) Heart failure with preserved ejection fraction (Acute) Depression (Acute) Restless leg syndrome (Acute) Glaucoma (Acute) Hyperlipidemia (Acute) Stroke (Acute) Debility (Acute) BPH (benign prostatic hyperplasia) (Acute) Hypokalemia (Acute) Vital Signs Temp Pulse Resp BP Pulse Ox O2 Del Method FiO2 97.3 F L 86 18 172/72 H 95 Room Air 94 12/15/23 16:47 12/16/23 10:00 12/16/23 10:00 12/16/23 05:59 12/16/23 05:58 12/16/23 10:00 12/15/23 20:49 Oxygen Delivery Method Room Air Weight: 78 kg Body Mass Index (BMI) 23.3 Sodium 143 mmol/L (136-145) 12/16/23 05:43 Potassium 3.7 mmol/L (3.5-5.1) 12/16/23 05:43 Chloride 109 mmol/L (98-107) H 12/16/23 05:43 Carbon Dioxide 30.0 mmol/L (21.0-32.0) 12/16/23 05:43 Anion Gap 4 (5-15) L 12/16/23 05:43 BUN 34 mg/dL (7-18) H 12/16/23 05:43 Creatinine 1.51 mg/dL (0.70-1.30) H 12/16/23 05:43 Est GFR (MDRD) Af Amer 57 mL/min (>60) L 12/16/23 05:43 Est GFR (MDRD) Non-Af 47 mL/min (>60) L 12/16/23 05:43 BUN/Creatinine Ratio 22.5 RATIO (10-20) H 12/16/23 05:43 Glucose 163 mg/dL (74-106) H 12/16/23 05:43 Assessment/Plan: 1. Pain: acetaminophen 1000 mg PO Q8, oxycodone 5 mg PO Q4H PRN pain (4-10). The patient has used 1 dose of PRN oxycodone so far this admission. Please continue to monitor pain levels, PRN medication administration, LFTs (AST/ALT = 20/21 U/L on 12/11/23), for constipation, syncope/ataxia/falls, drowsiness and dizziness. 2. Atrial fibrillation/stroke: amiodarone 100 mg PO daily, apixaban 2.5 mg PO BID, clopidogrel 75 mg PO daily. Please continue to monitor for s/s of stroke, for bleeding/excessive bruising, hemoglobin levels (Hgb = 9.5 g/dL on 12/16/23), platelet count (plt = 247 K/mm3 on 12/16/23), and renal function (serum creatinine = 1.51 mg/dL with creatinine clearance ~ 40 mL/min on 12/16/23). 3. Hyperlipidemia: ezetimibe 10 mg PO QHS. Please continue to monitor for myalgias, LFTs (AST/ALT = 20/21 U/L on 12/11/23) and lipid levels (cholesterol = 142 mg/dL with LDL =62 mg/dL on 11/15/23). 4. HFpEF: hydralazine 100 mg PO TID, furosemide 40 mg PO daily. Please continue to monitor for s/s of a heart failure exacerbation such as shortness of breath and lower extremity edema as well as blood pressures (recent range = 115-172/54-72 mmHg), heart rates (recent range = 65-86 beats/min), renal function (serum creatinine = 1.51 mg/dL with creatinine clearance ~ 40 mL/min on 12/16/23), s/s of dehydration, sodium levels (Na = 143 mmol/L on 12/16/23), potassium levels (K = 3.7 mmol/L on 12/16/23), and calcium levels (Ca = 9.0 mg/dL on 12/16/23). 5. Diabetes Mellitus II: insulin glargine 18 units SC daily with breakfast. Please continue to monitor blood sugars (recent range = 125-247 mg/dL) as well as hemoglobin A1C levels (A1C = 6.4% on 12/11/23) and for s/s of hypo/hyperglycemia. 6. BPH: doxazosin 4 mg PO QHS. Please continue to monitor for urinary retention and blood pressures (recent range = 115-172/54-72 mmHg). 7. Diabetic polyneuropathy: gabapentin 100 mg PO BID with meals, gabapentin 300 mg PO daily QHS. Please continue monitor for neuropathic pain, for drowsiness/dizziness and renal function (serum creatinine = 1.51 mg/dL with creatinine clearance ~ 40 mL/min on 12/16/23). 8. Overactive bladder: tolterodine 4 mg PO daily. Please continue to monitor for bladder spasms, dry mouth, and constipation. 9. Restless leg syndrome: pramipexole 0.125 mg PO QHS. Please continue to monitor for restless legs, for s/s of orthostasis, constipation, dizziness and drowsiness. 10. Glaucoma: latanoprost 0.005% 1 drop in each eye Tuesday, Tuesday and Tuesday evenings. Please continue to monitor eye health. 11. Bowel: Senna/docusate 2 tablets PO BID, bisacodyl 10 mg [place] daily PRN constipation. The patient has not required any PRN doses of bisacodyl so far this admission. The patient's last bowel movement was . Please continue to monitor for bowel movements, for PRN medication administration, for constipation and diarrhea. 12. Hypokalemia: potassium chloride 20 mEq PO daily with a meal. Please continue to monitor potassium levels (K = 3.7 mmol/L on 12/16/23), and for GI distress with potassium administration. 13. Nutrition: glucerna 120 mL PO 4x/day, multivitamin 1 tablet PO daily. Please continue to monitor overall nutritional status. 14. Skin irritation: calmoseptine 1 application topically daily. Please continue to monitor for skin irritation Assessment/Plan for indications treated with psychotropic medications: 1. Depression: sertraline 50 mg PO QHS. Please see provider note regarding stable chronic terminal manager therapy GDR not recommended. Please continue to monitor for depression, SI, for s/s of serotonin syndrome, drowsiness, diarrhea and sodium levels (Na = 143 mmol/L on 12/16/23). Medical chart and medication regimen reviewed. The following medication irregularities or issues were identified: NA Date Date of Note:: 12/16/23 Documented by User: Dr. Johnathan Huffman MD 12/16/23 13:43 TCU RX Drug Regimen Review Provider Comments Provider responsibility Provider Comments to Recommendations by Pharmacy: Agree
[2023-12-16 13:48] VITALS: PULSE 75
[2023-12-16 14:40] VITALS: BP 127/54; PULSE 82; RESP 18; TEMP 35.8; O2SAT 95
--- NOTE | 2023-12-16 15:54 | CASEMGMT ---
Social Work SW met with patient to complete initial assessment. Pt known to this worker very well from multiple previous admissions. Verified contacts and no changes to admission assessment. Pt confirmed code status as DNR-CCA, no intubation. SW expressed concern with fall and multiple admissions, revisiting the reason pt and do not accept help at home. Pt explained reasoning, however, stated pt and have concluded and finalized the plan to move into [facility]. SW explained this worker can place the referral and have pt transition to [place] from this stay. Pt agreeable and appreciative. SW commended pt for the plan. Referral sent to [facility] via [facility]. Will continue to follow for DC planning. Tiffanie Meyers, IMPORT CLERK FURNITURE SPRAYER
[2023-12-16] MEDS: Gabapentin 300 MG Capsule PO (21:20)
[2023-12-16] MEDS: Latanoprost 0.005% 1 Bottle 1 DRP EACH EYE (21:23)
[2023-12-16] MEDS: Sertraline 50 MG Tablet PO (21:23)
[2023-12-16] MEDS: Ezetimibe 10 MG Tablet PO (21:23)
[2023-12-16 21:24] VITALS: BP 153/63; PULSE 61
[2023-12-16] MEDS: Doxazosin 4 MG Tablet PO (21:24)
[2023-12-16] MEDS: Pramipexole Di-HCl 0.125 MG Tablet PO (21:24)
[2023-12-16] MEDS: 0.9% Saline Lock 10 ML Syringe IV (21:35)
[2023-12-17] VITALS (7 sets, daily range): BP systolic 158–177; BP diastolic 68–79; PULSE 70–78; RESP 18; TEMP 36.3; O2SAT 93–97
[2023-12-17] MEDS: Acetaminophen 500 MG Tablet 1000 MG PO ×3 (05:50→21:48)
[2023-12-17] MEDS: Glucerna Shake 120 ML LIQUID PO ×4 (05:51→21:52)
[2023-12-17] MEDS: hydrALAZINE 50 MG Tablet 100 MG PO ×3 (05:51→21:44)
[2023-12-17 06:51] LABS: Bedside Glucose 181 mg/dL (74-106)
[2023-12-17] MEDS: Potassium Chloride Oral Tablet 20 MEQ PO (08:55)
[2023-12-17] MEDS: Amiodarone 200 MG Tablet 100 MG PO (08:56)
[2023-12-17] MEDS: APIXABAN 2.5 MG TABLET (WCH) PO ×2 (08:56→21:46)
[2023-12-17] MEDS: Tolterodine Tartrate 4 MG CAP.SA PO (08:56)
[2023-12-17] MEDS: Insulin Glargine-YFGN 100 UNIT/ML Pen 18 UNIT SC (08:56)
[2023-12-17] MEDS: Senna/Docusate Sodium 1 Tablet 2 TABLET PO ×2 (08:56→21:48)
[2023-12-17] MEDS: Furosemide 40 MG Tablet PO (08:56)
[2023-12-17] MEDS: Multivitamins,Ther W-Minerals Tablet 1 TABLET PO (08:56)
[2023-12-17] MEDS: Clopidogrel Bisulfate 75 MG Tablet PO (08:56)
[2023-12-17] MEDS: Menthol/Lanolin/Calamine/Znox 113 GM Tube 1 APPLIC TOPICAL ×2 (08:57→21:45)
[2023-12-17] MEDS: Gabapentin 100 MG Capsule PO ×2 (09:01→16:35)
[2023-12-17] MEDS: Gabapentin 300 MG Capsule PO (21:44)
[2023-12-17] MEDS: Doxazosin 4 MG Tablet PO (21:46)
[2023-12-17] MEDS: Pramipexole Di-HCl 0.125 MG Tablet PO (21:47)
[2023-12-17] MEDS: Sertraline 50 MG Tablet PO (21:49)
[2023-12-17] MEDS: Ezetimibe 10 MG Tablet PO (21:49)
[2023-12-18] VITALS (7 sets, daily range): BP systolic 138–173; BP diastolic 68–78; PULSE 64–97; RESP 16; TEMP 36.2; O2SAT 94–98
[2023-12-18] MEDS: Acetaminophen 500 MG Tablet 1000 MG PO ×3 (05:10→21:52)
[2023-12-18] MEDS: hydrALAZINE 50 MG Tablet 100 MG PO ×3 (05:11→21:49)
[2023-12-18] MEDS: Glucerna Shake 120 ML LIQUID PO ×3 (05:11→21:55)
[2023-12-18 06:37] LABS: Bedside Glucose 186 mg/dL (74-106)
[2023-12-18] MEDS: Insulin Glargine-YFGN 100 UNIT/ML Pen 18 UNIT SC (07:47)
[2023-12-18] MEDS: Gabapentin 100 MG Capsule PO ×2 (07:48→16:34)
[2023-12-18] MEDS: Potassium Chloride Oral Tablet 20 MEQ PO (07:48)
[2023-12-18] MEDS: Multivitamins,Ther W-Minerals Tablet 1 TABLET PO (07:49)
[2023-12-18] MEDS: Furosemide 40 MG Tablet PO (09:36)
[2023-12-18] MEDS: APIXABAN 2.5 MG TABLET (WCH) PO ×2 (09:36→21:51)
[2023-12-18] MEDS: Clopidogrel Bisulfate 75 MG Tablet PO (09:36)
[2023-12-18] MEDS: Tolterodine Tartrate 4 MG CAP.SA PO (09:37)
[2023-12-18] MEDS: Amiodarone 200 MG Tablet 100 MG PO (09:38)
[2023-12-18] MEDS: Menthol/Lanolin/Calamine/Znox 113 GM Tube 1 APPLIC TOPICAL ×2 (09:41→21:50)
[2023-12-18] MEDS: Gabapentin 300 MG Capsule PO (21:48)
[2023-12-18] MEDS: Doxazosin 4 MG Tablet PO (21:50)
[2023-12-18] MEDS: Pramipexole Di-HCl 0.125 MG Tablet PO (21:52)
[2023-12-18] MEDS: Senna/Docusate Sodium 1 Tablet 2 TABLET PO (21:52)
[2023-12-18] MEDS: Sertraline 50 MG Tablet PO (21:53)
[2023-12-18] MEDS: Ezetimibe 10 MG Tablet PO (21:53)
[2023-12-19 05:07] VITALS: BP 167/68; PULSE 72
[2023-12-19 05:16] VITALS: BP 167/68; PULSE 72
[2023-12-19] MEDS: Glucerna Shake 120 ML LIQUID PO ×4 (05:16→21:29)
[2023-12-19] MEDS: hydrALAZINE 50 MG Tablet 100 MG PO ×3 (05:16→21:32)
[2023-12-19] MEDS: Acetaminophen 500 MG Tablet 1000 MG PO ×3 (05:17→21:35)
[2023-12-19 06:13] LABS: Bedside Glucose 165 mg/dL (74-106)
[2023-12-19 08:21] VITALS: BP 160/70; PULSE 69; RESP 18; TEMP 36.2; O2SAT 95
[2023-12-19] MEDS: Insulin Glargine-YFGN 100 UNIT/ML Pen 18 UNIT SC (08:24)
[2023-12-19] MEDS: Multivitamins,Ther W-Minerals Tablet 1 TABLET PO (08:25)
[2023-12-19] MEDS: Menthol/Lanolin/Calamine/Znox 113 GM Tube 1 APPLIC TOPICAL ×2 (08:25→21:34)
[2023-12-19] MEDS: Potassium Chloride Oral Tablet 20 MEQ PO (08:25)
[2023-12-19] MEDS: Amiodarone 200 MG Tablet 100 MG PO (08:26)
[2023-12-19] MEDS: Tolterodine Tartrate 4 MG CAP.SA PO (08:26)
[2023-12-19] MEDS: Furosemide 40 MG Tablet PO (08:27)
[2023-12-19] MEDS: Senna/Docusate Sodium 1 Tablet 2 TABLET PO ×2 (08:27→21:32)
[2023-12-19] MEDS: APIXABAN 2.5 MG TABLET (WCH) PO ×2 (08:27→21:32)
[2023-12-19] MEDS: Clopidogrel Bisulfate 75 MG Tablet PO (08:27)
[2023-12-19] MEDS: Gabapentin 100 MG Capsule PO ×2 (08:29→17:10)
[2023-12-19 13:21] VITALS: BP 145/61; PULSE 61
[2023-12-19 13:23] VITALS: PULSE 61
[2023-12-19] MEDS: oxyCODONE 5 MG Tablet PO (15:38)
[2023-12-19 21:32] VITALS: BP 158/68; PULSE 73
[2023-12-19] MEDS: Ezetimibe 10 MG Tablet PO (21:32)
[2023-12-19] MEDS: Latanoprost 0.005% 1 Bottle 1 DRP EACH EYE (21:32)
[2023-12-19] MEDS: Pramipexole Di-HCl 0.125 MG Tablet PO (21:32)
[2023-12-19] MEDS: Sertraline 50 MG Tablet PO (21:32)
[2023-12-19] MEDS: Gabapentin 300 MG Capsule PO (21:33)
[2023-12-19] MEDS: Doxazosin 4 MG Tablet PO (21:33)
[2023-12-20 05:18] VITALS: BP 167/77; PULSE 73; O2SAT 95
[2023-12-20] MEDS: Acetaminophen 500 MG Tablet 1000 MG PO ×3 (05:29→21:40)
[2023-12-20] MEDS: Glucerna Shake 120 ML LIQUID PO ×4 (05:29→21:42)
[2023-12-20 05:30] VITALS: BP 167/77; PULSE 73
[2023-12-20] MEDS: hydrALAZINE 50 MG Tablet 100 MG PO ×2 (05:30→21:40)
[2023-12-20 06:19] LABS: Bedside Glucose 167 mg/dL (74-106)
[2023-12-20 09:26] VITALS: BMI 23.8
[2023-12-20] MEDS: Tolterodine Tartrate 4 MG CAP.SA PO (09:27)
[2023-12-20] MEDS: Gabapentin 100 MG Capsule PO ×2 (09:27→16:46)
[2023-12-20] MEDS: Insulin Glargine-YFGN 100 UNIT/ML Pen 18 UNIT SC (09:27)
[2023-12-20] MEDS: Potassium Chloride Oral Tablet 20 MEQ PO (09:27)
[2023-12-20] MEDS: APIXABAN 2.5 MG TABLET (WCH) PO ×2 (09:27→21:40)
[2023-12-20] MEDS: Amiodarone 200 MG Tablet 100 MG PO (09:27)
[2023-12-20] MEDS: Multivitamins,Ther W-Minerals Tablet 1 TABLET PO (09:27)
[2023-12-20] MEDS: Clopidogrel Bisulfate 75 MG Tablet PO (09:28)
[2023-12-20] MEDS: Senna/Docusate Sodium 1 Tablet 2 TABLET PO ×2 (09:28→21:40)
[2023-12-20] MEDS: Furosemide 40 MG Tablet PO (09:28)
[2023-12-20] MEDS: Menthol/Lanolin/Calamine/Znox 113 GM Tube 1 APPLIC TOPICAL ×2 (09:28→21:40)
[2023-12-20 10:57] VITALS: BP 123/57; PULSE 66; RESP 18; TEMP 36.3; O2SAT 98
[2023-12-20 13:20] VITALS: BP 120/53; PULSE 67
[2023-12-20 21:39] VITALS: BP 160/68; PULSE 65; RESP 17; O2SAT 93
[2023-12-20 21:40] VITALS: BP 160/68; PULSE 65
[2023-12-20] MEDS: Doxazosin 4 MG Tablet PO (21:40)
[2023-12-20] MEDS: Sertraline 50 MG Tablet PO (21:40)
[2023-12-20] MEDS: Gabapentin 300 MG Capsule PO (21:40)
[2023-12-20] MEDS: Pramipexole Di-HCl 0.125 MG Tablet PO (21:40)
[2023-12-20] MEDS: Ezetimibe 10 MG Tablet PO (21:40)
[2023-12-21] VITALS (8 sets, daily range): BP systolic 145–162; BP diastolic 57–70; PULSE 60–68; RESP 16; TEMP 36.3; O2SAT 94–97
[2023-12-21] MEDS: Acetaminophen 500 MG Tablet 1000 MG PO ×3 (05:38→21:43)
[2023-12-21] MEDS: hydrALAZINE 50 MG Tablet 100 MG PO ×3 (05:38→21:39)
[2023-12-21] MEDS: Glucerna Shake 120 ML LIQUID PO ×4 (05:38→21:45)
[2023-12-21 06:35] LABS: Bedside Glucose 109 mg/dL (74-106)
[2023-12-21] MEDS: Potassium Chloride Oral Tablet 20 MEQ PO (09:20)
[2023-12-21] MEDS: Insulin Glargine-YFGN 100 UNIT/ML Pen 18 UNIT SC (09:20)
[2023-12-21] MEDS: Amiodarone 200 MG Tablet 100 MG PO (09:21)
[2023-12-21] MEDS: Multivitamins,Ther W-Minerals Tablet 1 TABLET PO (09:21)
[2023-12-21] MEDS: Clopidogrel Bisulfate 75 MG Tablet PO (09:22)
[2023-12-21] MEDS: Furosemide 40 MG Tablet PO (09:22)
[2023-12-21] MEDS: APIXABAN 2.5 MG TABLET (WCH) PO ×2 (09:22→21:42)
[2023-12-21] MEDS: Tolterodine Tartrate 4 MG CAP.SA PO (09:22)
[2023-12-21] MEDS: Menthol/Lanolin/Calamine/Znox 113 GM Tube 1 APPLIC TOPICAL ×2 (09:23→21:40)
[2023-12-21] MEDS: Gabapentin 100 MG Capsule PO ×2 (09:27→16:49)
--- NOTE | 2023-12-21 11:03 | CASEMGMT ---
Addendum entered by Tiffanie Meyers 12/21/23 12:12: [facility] replied that the two person assist and diet they can accommodate, but they would need to determine the wound care needs. Navin will have a nurse assess this week. ALBARO updated dtr, present at bedside. Original Note: Social Work IDT met with patient and dtr for care plan meeting. Discussed patient's progress in PT/OT/ST/SN. Educated to [facility] insurance with NRD 12/20 and continued stay is not guaranteed with each review. Provided dtr with written communication on insurance process and copay coverage during stay. Pt's goal is to DC to [facility]. ALBARO referred to [facility] at admission and [facility] confirmed admission when it is time. However, pt is a x2 assist, total assist with ADLs, minced/moist diet, and has wounds. ALBARO sent email communication to Navin at [facility] to confirm pt can still admit. Will continue to follow. Received return email and [facility]in stated they will need to reassess prior to DC. ALBARO inquired about how much advanced notice they would need as insurance only provides a 3-day notice, regardless of business days. Will await outcome. Tiffanie Meyers ,CONCHA PAPER WRAPPING MACHINE OPERATOR
[2023-12-21] MEDS: Gabapentin 300 MG Capsule PO (21:39)
[2023-12-21] MEDS: Doxazosin 4 MG Tablet PO (21:41)
[2023-12-21] MEDS: Senna/Docusate Sodium 1 Tablet 2 TABLET PO (21:42)
[2023-12-21] MEDS: Pramipexole Di-HCl 0.125 MG Tablet PO (21:42)
[2023-12-21] MEDS: Ezetimibe 10 MG Tablet PO (21:44)
[2023-12-21] MEDS: Latanoprost 0.005% 1 Bottle 1 DRP EACH EYE (21:44)
[2023-12-21] MEDS: Sertraline 50 MG Tablet PO (21:44)
[2023-12-22] VITALS (7 sets, daily range): BP systolic 128–166; BP diastolic 46–86; PULSE 59–73; RESP 16; TEMP 36.4; O2SAT 95
[2023-12-22] MEDS: Glucerna Shake 120 ML LIQUID PO ×2 (05:19→16:00)
[2023-12-22] MEDS: Acetaminophen 500 MG Tablet 1000 MG PO ×3 (05:20→21:54)
[2023-12-22] MEDS: hydrALAZINE 50 MG Tablet 100 MG PO ×3 (05:20→21:53)
[2023-12-22 06:21] LABS: Bedside Glucose 130 mg/dL (74-106)
[2023-12-22] MEDS: Insulin Glargine-YFGN 100 UNIT/ML Pen 18 UNIT SC (08:55)
[2023-12-22] MEDS: Potassium Chloride Oral Tablet 20 MEQ PO (08:56)
[2023-12-22] MEDS: Clopidogrel Bisulfate 75 MG Tablet PO (08:56)
[2023-12-22] MEDS: Amiodarone 200 MG Tablet 100 MG PO (08:56)
[2023-12-22] MEDS: Furosemide 40 MG Tablet PO (08:57)
[2023-12-22] MEDS: APIXABAN 2.5 MG TABLET (WCH) PO ×2 (08:57→21:55)
[2023-12-22] MEDS: Tolterodine Tartrate 4 MG CAP.SA PO (08:57)
[2023-12-22] MEDS: Menthol/Lanolin/Calamine/Znox 113 GM Tube 1 APPLIC TOPICAL ×2 (08:57→21:53)
[2023-12-22] MEDS: Multivitamins,Ther W-Minerals Tablet 1 TABLET PO (08:57)
[2023-12-22] MEDS: Gabapentin 100 MG Capsule PO ×2 (09:00→16:01)
--- NOTE | 2023-12-22 13:24 | CASEMGMT ---
Social Work BIMS () and PHQ-2 () completed for MDS assessment. Tiffanie Meyers, PLANT TOUR GUIDE RESEARCH ATTORNEY
[2023-12-22] MEDS: oxyCODONE 5 MG Tablet PO (13:59)
[2023-12-22] MEDS: Gabapentin 300 MG Capsule PO (21:53)
[2023-12-22] MEDS: Doxazosin 4 MG Tablet PO (21:54)
[2023-12-22] MEDS: Pramipexole Di-HCl 0.125 MG Tablet PO (21:55)
[2023-12-22] MEDS: Senna/Docusate Sodium 1 Tablet 2 TABLET PO (21:56)
[2023-12-22] MEDS: Sertraline 50 MG Tablet PO (21:56)
[2023-12-22] MEDS: Ezetimibe 10 MG Tablet PO (21:56)
[2023-12-23] VITALS (7 sets, daily range): BP systolic 109–173; BP diastolic 53–80; PULSE 64–67; RESP 16; TEMP 36.1–36.4; O2SAT 96–98
[2023-12-23] MEDS: hydrALAZINE 50 MG Tablet 100 MG PO ×3 (05:04→22:20)
[2023-12-23] MEDS: Acetaminophen 500 MG Tablet 1000 MG PO ×3 (05:04→22:21)
[2023-12-23 06:18] LABS: Bedside Glucose 150 mg/dL (74-106)
[2023-12-23 08:09] LABS: Absolute Neutrophil Count 10.7 X10^3/uL (2.0-7.7); Basophil# 0.08 X10^3/uL; Basophil% 0.5 % (0-1); Eosinophil# 0.73 X10^3/uL; Eosinophils% 4.9 % (0-5); Hematocrit 30.4 % (40-54); Hemoglobin 9.7 g/dL (13.0-16.5); Lymphocyte % 14.8 % (19-41); Mean Corp Hgb Conc 31.9 g/dL (32-36); Mean Corpuscular Hgb 30.1 pg (27.0-32.0); Mean Corpuscular Volume 94.4 fL (80-94); Mean Platelet Vol. 9.6 fl (6.2-12.0); Monocyte# 0.94 X10^3/uL; Monocyte% 6.3 % (0-10); NRBC Flagged by Analyzer 0 % (0-5); Neutrophil # 10.73 X10^3/uL (2.7-7.7); Neutrophil % 72.2 % (47-70); Platelet Count 428 K/mm3 (150-450); RBC Distribution Width CV 15.9 % (11.6-14.6); RBC Distribution Width SD 54.7 fl (35.1-43.9); Red Blood Count 3.22 M/mm3 (4.6-6.2); White Blood Count 14.9 K/mm3 (4.4-11.0)
[2023-12-23 08:37] LABS: Anion Gap 4 (5-15); BUN 38 mg/dL (7-18); BUN/Creat Ratio 24.5 RATIO (10-20); Calcium,Total 8.8 mg/dL (8.5-10.1); Chloride 106 mmol/L (98-107); Creatinine, Serum 1.55 mg/dL (0.70-1.30); EST Glomerular Filtration Rate 46 mL/min (>60); Est Glom Filt Rate - Afr Amer 55 mL/min (>60); Estimated Creatinine Clearance 38.94 ml/min; Glucose 149 mg/dL (74-106); Potassium 3.8 mmol/L (3.5-5.1); Sodium Level 141 mmol/L (136-145)
--- NOTE | 2023-12-23 08:52 | CASEMGMT ---
Social Work SW spoke with Ans[facility] at [facility] to inquire about onsite. Ansley stated she needs to see the wound documentation prior to the visit. SW collaborate with charge nurse and order entered for wound nurse to assess pressure area on heel. SW updated Ansley on the new consult and will provide her with the notes. Tiffanie Meyers MSW TUNNEL ELASTIC OPERATOR [employer]
[2023-12-23] MEDS: Insulin Glargine-YFGN 100 UNIT/ML Pen 18 UNIT SC (08:54)
[2023-12-23] MEDS: Menthol/Lanolin/Calamine/Znox 113 GM Tube 1 APPLIC TOPICAL ×2 (08:55→22:23)
[2023-12-23] MEDS: Multivitamins,Ther W-Minerals Tablet 1 TABLET PO (08:55)
[2023-12-23] MEDS: Potassium Chloride Oral Tablet 20 MEQ PO (08:55)
[2023-12-23] MEDS: Amiodarone 200 MG Tablet 100 MG PO (08:56)
[2023-12-23] MEDS: Furosemide 40 MG Tablet PO (08:57)
[2023-12-23] MEDS: APIXABAN 2.5 MG TABLET (WCH) PO ×2 (08:57→22:21)
[2023-12-23] MEDS: Clopidogrel Bisulfate 75 MG Tablet PO (08:57)
[2023-12-23] MEDS: Tolterodine Tartrate 4 MG CAP.SA PO (08:57)
[2023-12-23] MEDS: Losartan Potassium 100 MG Tablet PO (08:59)
[2023-12-23] MEDS: Gabapentin 100 MG Capsule PO ×2 (08:59→17:31)
[2023-12-23] MEDS: Tuberculin,Purif.prot.deriv. 50 TU/ML Vial 0.1 ML ID (10:14)
--- NOTE | 2023-12-23 10:46 | CASEMGMT ---
Social Work SW followed up with Navin at [facility] on the status of the nurse onsite. The nurse should be onsiting pt today to assess the wound. SW will continue to follow. CONCHA Schmitt
[2023-12-23] MEDS: oxyCODONE 5 MG Tablet PO (15:15)
[2023-12-23] MEDS: Glucerna Shake 120 ML LIQUID PO ×2 (17:31→22:22)
[2023-12-23] MEDS: Sertraline 50 MG Tablet PO (22:21)
[2023-12-23] MEDS: Gabapentin 300 MG Capsule PO (22:21)
[2023-12-23] MEDS: Pramipexole Di-HCl 0.125 MG Tablet PO (22:21)
[2023-12-23] MEDS: Ezetimibe 10 MG Tablet PO (22:21)
[2023-12-23] MEDS: Doxazosin 4 MG Tablet PO (22:21)
[2023-12-23] MEDS: Latanoprost 0.005% 1 Bottle 1 DRP EACH EYE (22:22)
[2023-12-24] MEDS: Glucerna Shake 120 ML LIQUID PO ×4 (05:23→21:57)
[2023-12-24 05:25] VITALS: BP 161/75; PULSE 67
[2023-12-24] MEDS: hydrALAZINE 50 MG Tablet 100 MG PO ×3 (05:25→21:57)
[2023-12-24] MEDS: Acetaminophen 500 MG Tablet 1000 MG PO ×3 (05:26→21:58)
[2023-12-24 05:45] VITALS: BP 161/75; PULSE 67
[2023-12-24 06:31] LABS: Bedside Glucose 149 mg/dL (74-106)
[2023-12-24 08:50] VITALS: BP 119/73; PULSE 65; RESP 16; TEMP 36.3; O2SAT 98
[2023-12-24] MEDS: Insulin Glargine-YFGN 100 UNIT/ML Pen 18 UNIT SC (08:51)
[2023-12-24] MEDS: Amiodarone 200 MG Tablet 100 MG PO (08:56)
[2023-12-24] MEDS: Clopidogrel Bisulfate 75 MG Tablet PO (08:57)
[2023-12-24] MEDS: Furosemide 40 MG Tablet PO (08:57)
[2023-12-24] MEDS: Losartan Potassium 100 MG Tablet PO (08:58)
[2023-12-24] MEDS: Tolterodine Tartrate 4 MG CAP.SA PO (08:58)
[2023-12-24] MEDS: Potassium Chloride Oral Tablet 20 MEQ PO (08:58)
[2023-12-24] MEDS: Multivitamins,Ther W-Minerals Tablet 1 TABLET PO (08:58)
[2023-12-24] MEDS: APIXABAN 2.5 MG TABLET (WCH) PO ×2 (08:58→21:57)
[2023-12-24] MEDS: Gabapentin 100 MG Capsule PO ×2 (08:58→17:19)
[2023-12-24] MEDS: Menthol/Lanolin/Calamine/Znox 113 GM Tube 1 APPLIC TOPICAL ×2 (09:07→22:07)
[2023-12-24 14:02] VITALS: BP 129/56; PULSE 67
--- NOTE | 2023-12-24 15:47 | NURSING ---
Bo removed per physician order. Pt. tolerated well. Balloon catheter intact after removal.
[2023-12-24] MEDS: Gabapentin 300 MG Capsule PO (21:52)
[2023-12-24 21:55] VITALS: BP 158/70; PULSE 68; O2SAT 92
[2023-12-24 21:57] VITALS: BP 158/70; PULSE 68
[2023-12-24] MEDS: Pramipexole Di-HCl 0.125 MG Tablet PO (21:57)
[2023-12-24] MEDS: Senna/Docusate Sodium 1 Tablet 2 TABLET PO (21:57)
[2023-12-24] MEDS: Doxazosin 4 MG Tablet PO (21:57)
[2023-12-24] MEDS: Sertraline 50 MG Tablet PO (21:58)
[2023-12-24] MEDS: Ezetimibe 10 MG Tablet PO (21:58)
[2023-12-25] MEDS: Acetaminophen 500 MG Tablet 1000 MG PO ×3 (06:09→21:31)
[2023-12-25] MEDS: Glucerna Shake 120 ML LIQUID PO ×4 (06:09→21:31)
[2023-12-25 06:10] VITALS: BP 160/70; PULSE 67
[2023-12-25] MEDS: hydrALAZINE 50 MG Tablet 100 MG PO ×3 (06:10→21:31)
[2023-12-25 06:29] LABS: Bedside Glucose 146 mg/dL (74-106)
[2023-12-25 06:40] VITALS: PULSE 67; O2SAT 97
--- NOTE | 2023-12-25 07:36 | NURSING ---
Pt has not had a bowel movement since 12/21/23. This nurse attempted to give pt a suppository, education provided but pt refused at this time.
[2023-12-25] MEDS: Potassium Chloride Oral Tablet 20 MEQ PO (09:05)
[2023-12-25] MEDS: Insulin Glargine-YFGN 100 UNIT/ML Pen 18 UNIT SC (09:06)
[2023-12-25] MEDS: Losartan Potassium 100 MG Tablet PO (09:07)
[2023-12-25] MEDS: Multivitamins,Ther W-Minerals Tablet 1 TABLET PO (09:07)
[2023-12-25] MEDS: Amiodarone 200 MG Tablet 100 MG PO (09:09)
[2023-12-25] MEDS: Menthol/Lanolin/Calamine/Znox 113 GM Tube 1 APPLIC TOPICAL ×2 (09:10→21:32)
[2023-12-25] MEDS: APIXABAN 2.5 MG TABLET (WCH) PO ×2 (09:11→21:31)
[2023-12-25] MEDS: Furosemide 40 MG Tablet PO (09:11)
[2023-12-25] MEDS: Clopidogrel Bisulfate 75 MG Tablet PO (09:12)
[2023-12-25] MEDS: Senna/Docusate Sodium 1 Tablet 2 TABLET PO ×2 (09:12→21:31)
[2023-12-25] MEDS: Tolterodine Tartrate 4 MG CAP.SA PO (09:12)
[2023-12-25] MEDS: Gabapentin 100 MG Capsule PO ×2 (09:16→17:26)
[2023-12-25 12:29] VITALS: BP 132/48; PULSE 66; RESP 16; TEMP 36.6; O2SAT 97
[2023-12-25 14:53] VITALS: PULSE 68
[2023-12-25] MEDS: Gabapentin 300 MG Capsule PO (21:30)
[2023-12-25 21:31] VITALS: BP 154/66; PULSE 66
[2023-12-25] MEDS: Ezetimibe 10 MG Tablet PO (21:31)
[2023-12-25] MEDS: Doxazosin 4 MG Tablet PO (21:31)
[2023-12-25] MEDS: Pramipexole Di-HCl 0.125 MG Tablet PO (21:31)
[2023-12-25] MEDS: Sertraline 50 MG Tablet PO (21:31)
[2023-12-26] MEDS: Glucerna Shake 120 ML LIQUID PO ×4 (05:32→22:58)
[2023-12-26] MEDS: Acetaminophen 500 MG Tablet 1000 MG PO ×3 (05:32→22:53)
[2023-12-26 05:34] VITALS: BP 170/75; PULSE 68
[2023-12-26] MEDS: hydrALAZINE 50 MG Tablet 100 MG PO ×3 (05:34→22:51)
[2023-12-26 06:27] LABS: Bedside Glucose 137 mg/dL (74-106)
[2023-12-26] MEDS: Insulin Glargine-YFGN 100 UNIT/ML Pen 18 UNIT SC (07:59)
[2023-12-26] MEDS: Potassium Chloride Oral Tablet 20 MEQ PO (08:00)
[2023-12-26] MEDS: Multivitamins,Ther W-Minerals Tablet 1 TABLET PO (08:01)
[2023-12-26] MEDS: Gabapentin 100 MG Capsule PO ×2 (08:04→17:48)
[2023-12-26] MEDS: APIXABAN 2.5 MG TABLET (WCH) PO ×2 (08:08→22:52)
[2023-12-26] MEDS: Furosemide 40 MG Tablet PO (08:08)
[2023-12-26] MEDS: Tolterodine Tartrate 4 MG CAP.SA PO (08:08)
[2023-12-26] MEDS: Losartan Potassium 100 MG Tablet PO (08:09)
[2023-12-26] MEDS: Amiodarone 200 MG Tablet 100 MG PO (08:09)
[2023-12-26] MEDS: Clopidogrel Bisulfate 75 MG Tablet PO (08:10)
[2023-12-26] MEDS: Senna/Docusate Sodium 1 Tablet 2 TABLET PO ×2 (08:10→22:54)
[2023-12-26] MEDS: Menthol/Lanolin/Calamine/Znox 113 GM Tube 1 APPLIC TOPICAL ×2 (08:11→22:45)
--- NOTE | 2023-12-26 11:33 | NURSING ---
Offered covid vaccine, declined as he's says he's recently received it.
[2023-12-26 14:09] VITALS: BP 155/60; PULSE 61
--- NOTE | 2023-12-26 14:39 | WOUNDNOTE ---
wound photo: left heel
[2023-12-26 15:09] VITALS: BP 155/60; PULSE 61; RESP 12; TEMP 36.7; O2SAT 97
[2023-12-26] MEDS: oxyCODONE 5 MG Tablet PO (15:36)
[2023-12-26 22:00] VITALS: PULSE 70; O2SAT 96
[2023-12-26 22:45] VITALS: BP 163/68; PULSE 69; O2SAT 96
[2023-12-26] MEDS: Latanoprost 0.005% 1 Bottle 1 DRP EACH EYE (22:46)
[2023-12-26] MEDS: Gabapentin 300 MG Capsule PO (22:50)
[2023-12-26 22:51] VITALS: BP 163/68; PULSE 69
[2023-12-26] MEDS: Doxazosin 4 MG Tablet PO (22:51)
[2023-12-26] MEDS: Ezetimibe 10 MG Tablet PO (22:53)
[2023-12-26] MEDS: Pramipexole Di-HCl 0.125 MG Tablet PO (22:53)
[2023-12-26] MEDS: Sertraline 50 MG Tablet PO (22:53)
[2023-12-27 05:15] VITALS: BP 165/72; PULSE 76
[2023-12-27 05:19] VITALS: BP 165/72; PULSE 76
[2023-12-27] MEDS: Acetaminophen 500 MG Tablet 1000 MG PO ×3 (05:19→21:46)
[2023-12-27] MEDS: Glucerna Shake 120 ML LIQUID PO ×4 (05:19→21:46)
[2023-12-27] MEDS: hydrALAZINE 50 MG Tablet 100 MG PO ×3 (05:19→21:45)
[2023-12-27 06:06] LABS: Bedside Glucose 175 mg/dL (74-106)
--- NOTE | 2023-12-27 06:49 | MDS.RN ---
Information for the MDS was obtained from review of the clinical record, interview of resident, staff, and direct observation of resident?s care.
--- NOTE | 2023-12-27 08:53 | CASEMGMT ---
Social Work SW sent wound nurse documentation to [facility] via [facility]. Tiffanie Meyers, VESSEL MASTER JUNIOR MANUFACTURING ENGINEER
[2023-12-27] MEDS: Multivitamins,Ther W-Minerals Tablet 1 TABLET PO (09:05)
[2023-12-27] MEDS: Amiodarone 200 MG Tablet 100 MG PO (09:05)
[2023-12-27] MEDS: Gabapentin 100 MG Capsule PO ×2 (09:05→17:32)
[2023-12-27] MEDS: Potassium Chloride Oral Tablet 20 MEQ PO (09:05)
[2023-12-27] MEDS: Senna/Docusate Sodium 1 Tablet 2 TABLET PO (09:06)
[2023-12-27] MEDS: Losartan Potassium 100 MG Tablet PO (09:06)
[2023-12-27] MEDS: Furosemide 40 MG Tablet PO (09:06)
[2023-12-27] MEDS: APIXABAN 2.5 MG TABLET (WCH) PO ×2 (09:06→21:46)
[2023-12-27] MEDS: Clopidogrel Bisulfate 75 MG Tablet PO (09:06)
[2023-12-27] MEDS: Menthol/Lanolin/Calamine/Znox 113 GM Tube 1 APPLIC TOPICAL ×2 (09:06→21:47)
[2023-12-27] MEDS: Tolterodine Tartrate 4 MG CAP.SA PO (09:06)
[2023-12-27] MEDS: Insulin Glargine-YFGN 100 UNIT/ML Pen 18 UNIT SC (09:08)
[2023-12-27] MEDS: amLODIPine 10 MG Tablet PO (09:09)
[2023-12-27 11:16] VITALS: BP 127/53; PULSE 69; RESP 18; TEMP 36.3; O2SAT 98
--- NOTE | 2023-12-27 13:52 | CASEMGMT ---
Addendum entered by Tiffanie Meyers 12/28/23 16:39: SW returned this worker's call and left VM. SW phoned , but no answer and left VM. Original Note: Social Work SW received VM from following up to ensure this worker is aware of pt discharging to [facility]. SW returned call, no answer, left detailed VM of being aware of DC plan and the continuous conversations this worker is having with [facility]. Tiffanie Meyers, DIRECT OF REAL ESTATE [facility]
[2023-12-27 14:42] VITALS: BP 134/58; PULSE 67
[2023-12-27] MEDS: oxyCODONE 5 MG Tablet PO (14:44)
[2023-12-27 15:03] VITALS: BMI 23.7
[2023-12-27 16:39] VITALS: BP 134/58; PULSE 67
[2023-12-27 21:45] VITALS: BP 157/63; PULSE 63
[2023-12-27] MEDS: Gabapentin 300 MG Capsule PO (21:46)
[2023-12-27] MEDS: Ezetimibe 10 MG Tablet PO (21:46)
[2023-12-27] MEDS: Sertraline 50 MG Tablet PO (21:46)
[2023-12-27] MEDS: Doxazosin 4 MG Tablet PO (21:46)
[2023-12-27] MEDS: Pramipexole Di-HCl 0.125 MG Tablet PO (21:46)
[2023-12-28 05:56] VITALS: BP 156/67; PULSE 64
[2023-12-28] MEDS: hydrALAZINE 50 MG Tablet 100 MG PO ×3 (05:56→22:28)
[2023-12-28] MEDS: Glucerna Shake 120 ML LIQUID PO ×3 (05:56→22:27)
[2023-12-28] MEDS: Acetaminophen 500 MG Tablet 1000 MG PO ×3 (05:57→22:27)
[2023-12-28 06:34] LABS: Bedside Glucose 156 mg/dL (74-106)
[2023-12-28 08:14] VITALS: BP 105/44; PULSE 66; RESP 16; TEMP 36.2; O2SAT 96
[2023-12-28] MEDS: Menthol/Lanolin/Calamine/Znox 113 GM Tube 1 APPLIC TOPICAL ×2 (08:19→22:28)
[2023-12-28] MEDS: Multivitamins,Ther W-Minerals Tablet 1 TABLET PO (08:19)
[2023-12-28] MEDS: Potassium Chloride Oral Tablet 20 MEQ PO (08:19)
[2023-12-28] MEDS: Amiodarone 200 MG Tablet 100 MG PO (08:19)
[2023-12-28] MEDS: Tolterodine Tartrate 4 MG CAP.SA PO (08:20)
[2023-12-28] MEDS: APIXABAN 2.5 MG TABLET (WCH) PO ×2 (08:20→22:28)
[2023-12-28] MEDS: Losartan Potassium 100 MG Tablet PO (08:20)
[2023-12-28] MEDS: Furosemide 40 MG Tablet PO (08:20)
[2023-12-28] MEDS: amLODIPine 10 MG Tablet PO (08:21)
[2023-12-28] MEDS: Clopidogrel Bisulfate 75 MG Tablet PO (08:21)
[2023-12-28] MEDS: Gabapentin 100 MG Capsule PO ×2 (08:22→17:26)
[2023-12-28] MEDS: Insulin Glargine-YFGN 100 UNIT/ML Pen 18 UNIT SC (09:13)
[2023-12-28 13:43] VITALS: BP 135/53; PULSE 60
[2023-12-28 13:46] VITALS: PULSE 60
--- NOTE | 2023-12-28 16:39 | CASEMGMT ---
Social Work Nursing notified this worker that Ansley and nurse from [facility] were present to visit and assess pt, though no prior communication was given to this worker. SW spoke with Ans[facility] and nurse. Answered questions - no DC date yet, hospice is not involved nor going to be, at this time, and no changes pt's LOF. Ansley agreed they can accept pt, even after seeing pt's wounds. SW to keep [facility] updated on DC date. Nabeel Meyers, COMPUTER GAME TESTER DIVING FISHER
[2023-12-28] MEDS: Pramipexole Di-HCl 0.125 MG Tablet PO (22:27)
[2023-12-28] MEDS: Ezetimibe 10 MG Tablet PO (22:27)
[2023-12-28] MEDS: Sertraline 50 MG Tablet PO (22:27)
[2023-12-28 22:28] VITALS: BP 149/67; PULSE 66
[2023-12-28] MEDS: Gabapentin 300 MG Capsule PO (22:28)
[2023-12-28] MEDS: Doxazosin 4 MG Tablet PO (22:28)
[2023-12-28] MEDS: Latanoprost 0.005% 1 Bottle 1 DRP EACH EYE (22:29)
[2023-12-29] MEDS: Glucerna Shake 120 ML LIQUID PO ×4 (05:55→22:43)
[2023-12-29 05:57] VITALS: BP 153/68; PULSE 66
[2023-12-29] MEDS: hydrALAZINE 50 MG Tablet 100 MG PO ×3 (05:57→22:43)
[2023-12-29] MEDS: Acetaminophen 500 MG Tablet 1000 MG PO ×3 (05:57→22:42)
--- NOTE | 2023-12-29 06:09 | NURSING ---
This nurse was in with pt for multimedia manager when blood was noted to be on pt's top sheet. Upon assessment, L heel was noted to be draining a moderate amount of serosanguineous drainage. Mepilex applied and heel floated. Pt denies discomfort at this time and currently resting in bed.
[2023-12-29 06:33] LABS: Bedside Glucose 189 mg/dL (74-106)
[2023-12-29] MEDS: Menthol/Lanolin/Calamine/Znox 113 GM Tube 1 APPLIC TOPICAL ×2 (08:52→22:30)
[2023-12-29] MEDS: Multivitamins,Ther W-Minerals Tablet 1 TABLET PO (08:52)
[2023-12-29] MEDS: Potassium Chloride Oral Tablet 20 MEQ PO (08:52)
[2023-12-29] MEDS: Gabapentin 100 MG Capsule PO ×2 (08:52→17:31)
[2023-12-29] MEDS: Tolterodine Tartrate 4 MG CAP.SA PO (08:53)
[2023-12-29] MEDS: Losartan Potassium 100 MG Tablet PO (08:53)
[2023-12-29] MEDS: Amiodarone 200 MG Tablet 100 MG PO (08:53)
[2023-12-29] MEDS: APIXABAN 2.5 MG TABLET (WCH) PO ×2 (08:54→22:55)
[2023-12-29] MEDS: amLODIPine 10 MG Tablet PO (08:54)
[2023-12-29] MEDS: Furosemide 40 MG Tablet PO (08:54)
[2023-12-29] MEDS: Clopidogrel Bisulfate 75 MG Tablet PO (08:54)
[2023-12-29] MEDS: Insulin Glargine-YFGN 100 UNIT/ML Pen 18 UNIT SC (08:55)
[2023-12-29 11:33] VITALS: BP 138/54; PULSE 63; RESP 18; TEMP 36.2; O2SAT 100
[2023-12-29 14:03] VITALS: BP 133/56; PULSE 68
--- NOTE | 2023-12-29 15:09 | PN.ORTHO_ITS ---
Subjective Subjective Patient seen and examined. He states he is improving and mobilizing with therapy. He denies any significant pain in his left hip. Patient resting comfortably at time my examination. Denies any fevers, chills, nausea or vomiting, chest pain or shortness of breath. Objective Data Objective Data Vital Signs: Vital Signs Temp Pulse Resp BP Pulse Ox O2 Del Method FiO2 97.2 F L 68 18 133/56 H 100 Room Air 95 12/29/23 11:33 12/29/23 14:03 12/29/23 11:33 12/29/23 14:03 12/29/23 11:33 12/29/23 11:33 12/20/23 05:32 Oxygen Delivery Method Room Air Weight: 175 lb Body Mass Index (BMI) 23.7 Intake & Output: Intake and Output for Last 24 Hours 12/27/23 12/28/23 12/29/23 23:59 23:59 23:59 Intake Total 610 / 610 840 / 840 480 / 480 Output Total 300 / 300 Balance 310 / 310 840 / 840 480 / 480 Lab / Micro Data 12/23/23 07:57 12/23/23 07:57 Labs: Laboratory Results - last 24 hr 12/29/23 05:46: POC Glucose 189 H Micro: Microbiology 12/27/23 05:25 Nasal Secretion SARS-CoV-2 Antigen (Rapid) - Final 12/20/23 05:37 Nasal Secretion SARS-CoV-2 Antigen (Rapid) - Final 12/15/23 18:04 Nasal Secretion SARS-CoV-2 Antigen (Rapid) - Final Physical Exam Narrative General - A&Ox3, NAD. VSS/AF Left lower extremity -incision healing well with ayanna in place. No erythema or drainage.. SILT Sural, Saphenous, SPN, DPN, Tibial N. distributions. DP, PT 2+. BCR. DF, PF, EHL 5/5. No calf TTP. Assessment & Plan Assessment/Plan (1) Left displaced femoral neck fracture: PLAN: 2 weeks status post left hip hemiarthroplasty -Patient appears to be doing well. Incision healing well. Okay for staple removal by nursing staff. Okay to leave wound open to air. Okay to shower. No tub soaks until 6 weeks postoperatively. -Weight-bear as tolerated left lower extremity. Posterior hip precautions left hip x 6 weeks. -Continue PT/OT -Continue Eliquis x 28 days postoperatively, Plavix -Routine x-rays ordered today. -Follow-up in 4 weeks at [facility] for routine 6-week follow-up. Please not stated to call if any questions or concerns arise sooner. Thank you
--- NOTE | 2023-12-29 19:30 | RAD_ITS ---
EXAM: XR LEFT HIP WITH PELVIS WHEN PERFORMED, 2 OR 3 VIEWS CLINICAL INDICATION: 2 week post op L hip -- AP pelvis, AP left hip, crosstable lateral L hip TECHNIQUE: Two or three views of the left hip with pelvis when performed. COMPARISON: 12/11/2023 FINDINGS: BONES/JOINTS: Left hip arthroplasty with expected postoperative appearance. The arthroplasty components are well-positioned and there is no evidence of hardware failure or periprosthetic fracture. Degenerative changes in the lower lumbar spine, SI joints, and right hip. No destructive or sclerotic lesions. Note that overlapping bowel shadows may however obscure fine detail. No widening of the pubic symphysis. SOFT TISSUES: Surgical clips in the overlying skin. Radiographic clips are present. No soft tissue swelling or gas. VASCULATURE: Atherosclerosis. Vascular calcifications. RAD/HIP, UNI W/ Pelvis 2-3 Views IMPRESSION: Left hip arthroplasty with expected postoperative appearance. The arthroplasty components are well-positioned and there is no evidence of hardware failure or periprosthetic fracture. Electronically Signed: Boom Carr DO at 20:46 EDT ,
[2023-12-29 20:00] VITALS: PULSE 70; O2SAT 94
[2023-12-29 22:27] VITALS: BP 153/66; PULSE 74
[2023-12-29] MEDS: Gabapentin 300 MG Capsule PO (22:33)
[2023-12-29 22:43] VITALS: BP 153/66; PULSE 74
[2023-12-29] MEDS: Doxazosin 4 MG Tablet PO (22:43)
[2023-12-29] MEDS: Sertraline 50 MG Tablet PO (22:43)
[2023-12-29] MEDS: Ezetimibe 10 MG Tablet PO (22:56)
[2023-12-29] MEDS: Pramipexole Di-HCl 0.125 MG Tablet PO (22:56)
[2023-12-30] VITALS (7 sets, daily range): BP systolic 126–144; BP diastolic 51–64; PULSE 61–67; RESP 16; TEMP 36.1; O2SAT 95–98
[2023-12-30] MEDS: hydrALAZINE 50 MG Tablet 100 MG PO ×3 (05:26→22:31)
[2023-12-30] MEDS: Acetaminophen 500 MG Tablet 1000 MG PO ×3 (05:27→22:36)
[2023-12-30] MEDS: Glucerna Shake 120 ML LIQUID PO ×4 (05:27→22:39)
[2023-12-30 05:54] LABS: Absolute Lymphocyte Count 1.73 X10^3/uL (0.83-4.51); Absolute Neutrophil Count 6.8 X10^3/uL (2.0-7.7); Basophil# 0.08 X10^3/uL; Basophil% 0.8 % (0-1); Eosinophil# 0.94 X10^3/uL; Eosinophils% 8.9 % (0-5); Hematocrit 26.7 % (40-54); Hemoglobin 8.8 g/dL (13.0-16.5); Lymphocyte # 1.73 X10^3/ul (0.83-4.51); Lymphocyte % 16.4 % (19-41); Mean Corpuscular Hgb 30.8 pg (27.0-32.0); Mean Corpuscular Volume 93.4 fL (80-94); Monocyte# 0.95 X10^3/uL; NRBC Flagged by Analyzer 0 % (0-5); Neutrophil # 6.77 X10^3/uL (2.7-7.7); Neutrophil % 64.2 % (47-70); Platelet Count 331 K/mm3 (150-450); RBC Distribution Width CV 16.2 % (11.6-14.6); RBC Distribution Width SD 55.2 fl (35.1-43.9); Red Blood Count 2.86 M/mm3 (4.6-6.2); White Blood Count 10.5 K/mm3 (4.4-11.0)
[2023-12-30 06:13] LABS: Anion Gap 5 (5-15); BUN 59 mg/dL (7-18); BUN/Creat Ratio 37.6 RATIO (10-20); Calcium,Total 8.9 mg/dL (8.5-10.1); Chloride 106 mmol/L (98-107); Creatinine, Serum 1.57 mg/dL (0.70-1.30); EST Glomerular Filtration Rate 45 mL/min (>60); Est Glom Filt Rate - Afr Amer 54 mL/min (>60); Estimated Creatinine Clearance 38.44 ml/min; Glucose 179 mg/dL (74-106); Potassium 3.8 mmol/L (3.5-5.1); Sodium Level 139 mmol/L (136-145)
[2023-12-30 07:33] LABS: Bedside Glucose 172 mg/dL (74-106)
[2023-12-30] MEDS: Insulin Glargine-YFGN 100 UNIT/ML Pen 18 UNIT SC (08:52)
[2023-12-30] MEDS: Potassium Chloride Oral Tablet 20 MEQ PO (08:53)
[2023-12-30] MEDS: Tolterodine Tartrate 4 MG CAP.SA PO (08:54)
[2023-12-30] MEDS: APIXABAN 2.5 MG TABLET (WCH) PO ×2 (08:54→22:34)
[2023-12-30] MEDS: amLODIPine 10 MG Tablet PO (08:55)
[2023-12-30] MEDS: Clopidogrel Bisulfate 75 MG Tablet PO (08:55)
[2023-12-30] MEDS: Furosemide 40 MG Tablet PO (08:55)
[2023-12-30] MEDS: Multivitamins,Ther W-Minerals Tablet 1 TABLET PO (08:55)
[2023-12-30] MEDS: Amiodarone 200 MG Tablet 100 MG PO (08:56)
[2023-12-30] MEDS: Menthol/Lanolin/Calamine/Znox 113 GM Tube 1 APPLIC TOPICAL ×2 (08:57→22:32)
[2023-12-30] MEDS: Losartan Potassium 100 MG Tablet PO (08:57)
[2023-12-30] MEDS: Gabapentin 100 MG Capsule PO ×2 (08:59→17:42)
[2023-12-30] MEDS: Senna/Docusate Sodium 1 Tablet 2 TABLET PO ×2 (09:02→22:35)
[2023-12-30] MEDS: Gabapentin 300 MG Capsule PO (22:31)
[2023-12-30] MEDS: Doxazosin 4 MG Tablet PO (22:33)
[2023-12-30] MEDS: Pramipexole Di-HCl 0.125 MG Tablet PO (22:35)
[2023-12-30] MEDS: Latanoprost 0.005% 1 Bottle 1 DRP EACH EYE (22:36)
[2023-12-30] MEDS: Ezetimibe 10 MG Tablet PO (22:37)
[2023-12-30] MEDS: Sertraline 50 MG Tablet PO (22:37)
[2023-12-31] VITALS (7 sets, daily range): BP systolic 105–142; BP diastolic 43–61; PULSE 60–74; RESP 18; TEMP 36.4; O2SAT 95–99
[2023-12-31] MEDS: Glucerna Shake 120 ML LIQUID PO ×4 (05:04→22:12)
[2023-12-31] MEDS: hydrALAZINE 50 MG Tablet 100 MG PO ×3 (05:05→22:09)
[2023-12-31] MEDS: Acetaminophen 500 MG Tablet 1000 MG PO ×3 (05:05→22:09)
[2023-12-31 06:37] LABS: Bedside Glucose 143 mg/dL (74-106)
[2023-12-31] MEDS: Insulin Glargine-YFGN 100 UNIT/ML Pen 18 UNIT SC (09:38)
[2023-12-31] MEDS: Tolterodine Tartrate 4 MG CAP.SA PO (09:39)
[2023-12-31] MEDS: Menthol/Lanolin/Calamine/Znox 113 GM Tube 1 APPLIC TOPICAL ×2 (09:39→22:13)
[2023-12-31] MEDS: amLODIPine 10 MG Tablet PO (09:39)
[2023-12-31] MEDS: Losartan Potassium 100 MG Tablet PO (09:39)
[2023-12-31] MEDS: Furosemide 40 MG Tablet PO (09:39)
[2023-12-31] MEDS: Amiodarone 200 MG Tablet 100 MG PO (09:39)
[2023-12-31] MEDS: Senna/Docusate Sodium 1 Tablet 2 TABLET PO ×2 (09:39→22:12)
[2023-12-31] MEDS: APIXABAN 2.5 MG TABLET (WCH) PO ×2 (09:39→22:09)
[2023-12-31] MEDS: Clopidogrel Bisulfate 75 MG Tablet PO (09:39)
[2023-12-31] MEDS: Gabapentin 100 MG Capsule PO ×2 (09:39→17:33)
[2023-12-31] MEDS: Multivitamins,Ther W-Minerals Tablet 1 TABLET PO (09:39)
[2023-12-31] MEDS: Potassium Chloride Oral Tablet 20 MEQ PO (09:39)
[2023-12-31] MEDS: Gabapentin 300 MG Capsule PO (22:08)
[2023-12-31] MEDS: Ezetimibe 10 MG Tablet PO (22:10)
[2023-12-31] MEDS: Sertraline 50 MG Tablet PO (22:10)
[2023-12-31] MEDS: Doxazosin 4 MG Tablet PO (22:11)
[2023-12-31] MEDS: Pramipexole Di-HCl 0.125 MG Tablet PO (22:12)
[2024-01-01] VITALS (7 sets, daily range): BP systolic 104–139; BP diastolic 49–51; PULSE 54–64; RESP 18; TEMP 36.3; O2SAT 98
[2024-01-01] MEDS: hydrALAZINE 50 MG Tablet 100 MG PO ×3 (05:06→21:02)
[2024-01-01] MEDS: Acetaminophen 500 MG Tablet 1000 MG PO ×3 (05:06→21:02)
[2024-01-01] MEDS: Glucerna Shake 120 ML LIQUID PO ×3 (05:12→21:13)
[2024-01-01 06:34] LABS: Bedside Glucose 149 mg/dL (74-106)
[2024-01-01] MEDS: Gabapentin 100 MG Capsule PO ×2 (09:05→17:17)
[2024-01-01] MEDS: Potassium Chloride Oral Tablet 20 MEQ PO (09:05)
[2024-01-01] MEDS: Menthol/Lanolin/Calamine/Znox 113 GM Tube 1 APPLIC TOPICAL ×2 (09:06→21:02)
[2024-01-01] MEDS: Clopidogrel Bisulfate 75 MG Tablet PO (09:06)
[2024-01-01] MEDS: Furosemide 40 MG Tablet PO (09:06)
[2024-01-01] MEDS: APIXABAN 2.5 MG TABLET (WCH) PO ×2 (09:06→21:01)
[2024-01-01] MEDS: Amiodarone 200 MG Tablet 100 MG PO (09:06)
[2024-01-01] MEDS: amLODIPine 10 MG Tablet PO (09:06)
[2024-01-01] MEDS: Insulin Glargine-YFGN 100 UNIT/ML Pen 18 UNIT SC (09:06)
[2024-01-01] MEDS: Tolterodine Tartrate 4 MG CAP.SA PO (09:06)
[2024-01-01] MEDS: Senna/Docusate Sodium 1 Tablet 2 TABLET PO ×2 (09:06→21:03)
[2024-01-01] MEDS: Multivitamins,Ther W-Minerals Tablet 1 TABLET PO (09:06)
[2024-01-01] MEDS: Losartan Potassium 100 MG Tablet PO (09:06)
[2024-01-01] MEDS: Gabapentin 300 MG Capsule PO (21:01)
[2024-01-01] MEDS: Ezetimibe 10 MG Tablet PO (21:02)
[2024-01-01] MEDS: Doxazosin 4 MG Tablet PO (21:02)
[2024-01-01] MEDS: Sertraline 50 MG Tablet PO (21:03)
[2024-01-01] MEDS: Pramipexole Di-HCl 0.125 MG Tablet PO (21:03)
[2024-01-02 05:27] VITALS: BP 148/63; PULSE 69
[2024-01-02 05:28] VITALS: PULSE 69
[2024-01-02] MEDS: Acetaminophen 500 MG Tablet 1000 MG PO ×3 (05:28→22:12)
[2024-01-02] MEDS: hydrALAZINE 50 MG Tablet 100 MG PO ×3 (05:28→22:15)
[2024-01-02] MEDS: Glucerna Shake 120 ML LIQUID PO ×4 (05:30→22:10)
[2024-01-02 06:43] LABS: Bedside Glucose 170 mg/dL (74-106)
[2024-01-02] MEDS: APIXABAN 2.5 MG TABLET (WCH) PO ×2 (07:52→22:10)
[2024-01-02] MEDS: Furosemide 40 MG Tablet PO (07:52)
[2024-01-02] MEDS: Losartan Potassium 100 MG Tablet PO (07:52)
[2024-01-02] MEDS: Tolterodine Tartrate 4 MG CAP.SA PO (07:52)
[2024-01-02] MEDS: Amiodarone 200 MG Tablet 100 MG PO (07:52)
[2024-01-02] MEDS: amLODIPine 10 MG Tablet PO (07:52)
[2024-01-02] MEDS: Senna/Docusate Sodium 1 Tablet 2 TABLET PO (07:52)
[2024-01-02] MEDS: Clopidogrel Bisulfate 75 MG Tablet PO (07:52)
[2024-01-02] MEDS: Potassium Chloride Oral Tablet 20 MEQ PO (07:53)
[2024-01-02] MEDS: Insulin Glargine-YFGN 100 UNIT/ML Pen 18 UNIT SC (07:53)
[2024-01-02] MEDS: Multivitamins,Ther W-Minerals Tablet 1 TABLET PO (07:53)
[2024-01-02] MEDS: Gabapentin 100 MG Capsule PO ×2 (07:56→16:36)
[2024-01-02] MEDS: Menthol/Lanolin/Calamine/Znox 113 GM Tube 1 APPLIC TOPICAL ×2 (08:06→22:09)
[2024-01-02 14:07] VITALS: PULSE 54
[2024-01-02 14:45] VITALS: BP 102/57; PULSE 54; RESP 16; TEMP 36.1; O2SAT 98
[2024-01-02] MEDS: Gabapentin 300 MG Capsule PO (22:10)
[2024-01-02] MEDS: Doxazosin 4 MG Tablet PO (22:11)
[2024-01-02] MEDS: Pramipexole Di-HCl 0.125 MG Tablet PO (22:12)
[2024-01-02 22:15] VITALS: BP 159/74; PULSE 85
[2024-01-02] MEDS: Latanoprost 0.005% 1 Bottle 1 DRP EACH EYE (22:16)
[2024-01-02] MEDS: Ezetimibe 10 MG Tablet PO (22:17)
[2024-01-02] MEDS: Sertraline 50 MG Tablet PO (22:17)
[2024-01-03] MEDS: Acetaminophen 500 MG Tablet 1000 MG PO ×3 (05:47→22:17)
[2024-01-03 05:48] VITALS: BP 153/65; PULSE 94
[2024-01-03] MEDS: hydrALAZINE 50 MG Tablet 100 MG PO ×3 (05:48→22:15)
[2024-01-03 06:36] LABS: Bedside Glucose 132 mg/dL (74-106)
[2024-01-03] MEDS: Multivitamins,Ther W-Minerals Tablet 1 TABLET PO (08:56)
[2024-01-03] MEDS: Potassium Chloride Oral Tablet 20 MEQ PO (08:56)
[2024-01-03] MEDS: Insulin Glargine-YFGN 100 UNIT/ML Pen 18 UNIT SC (08:56)
[2024-01-03] MEDS: Amiodarone 200 MG Tablet 100 MG PO (08:56)
[2024-01-03] MEDS: Losartan Potassium 100 MG Tablet PO (08:57)
[2024-01-03] MEDS: Tolterodine Tartrate 4 MG CAP.SA PO (08:57)
[2024-01-03] MEDS: amLODIPine 10 MG Tablet PO (08:57)
[2024-01-03] MEDS: Furosemide 40 MG Tablet PO (08:57)
[2024-01-03] MEDS: APIXABAN 2.5 MG TABLET (WCH) PO ×2 (08:57→22:19)
[2024-01-03] MEDS: Clopidogrel Bisulfate 75 MG Tablet PO (08:57)
[2024-01-03] MEDS: Menthol/Lanolin/Calamine/Znox 113 GM Tube 1 APPLIC TOPICAL ×2 (08:58→22:16)
[2024-01-03] MEDS: Gabapentin 100 MG Capsule PO ×2 (08:58→16:14)
[2024-01-03 10:18] VITALS: BP 110/44; PULSE 59; RESP 18; TEMP 36.4; O2SAT 98
[2024-01-03] MEDS: Glucerna Shake 120 ML LIQUID PO ×3 (11:26→22:21)
[2024-01-03 13:13] VITALS: BMI 24.3
[2024-01-03 13:59] VITALS: PULSE 59
--- NOTE | 2024-01-03 15:13 | WOUNDNOTE ---
wound photo: left heel
[2024-01-03 22:14] VITALS: BP 133/62; PULSE 62
[2024-01-03 22:15] VITALS: BP 133/62; PULSE 62
[2024-01-03] MEDS: Gabapentin 300 MG Capsule PO (22:15)
[2024-01-03] MEDS: Pramipexole Di-HCl 0.125 MG Tablet PO (22:18)
[2024-01-03] MEDS: Doxazosin 4 MG Tablet PO (22:18)
[2024-01-03] MEDS: Senna/Docusate Sodium 1 Tablet 2 TABLET PO (22:18)
[2024-01-03] MEDS: Ezetimibe 10 MG Tablet PO (22:19)
[2024-01-03] MEDS: Sertraline 50 MG Tablet PO (22:19)
[2024-01-04] VITALS (9 sets, daily range): BP systolic 112–146; BP diastolic 42–65; PULSE 59–69; RESP 14–24; TEMP 36.2–36.6; O2SAT 95–96
[2024-01-04] MEDS: hydrALAZINE 50 MG Tablet 100 MG PO ×2 (05:06→22:22)
[2024-01-04] MEDS: Acetaminophen 500 MG Tablet 1000 MG PO ×3 (05:07→22:23)
[2024-01-04] MEDS: Glucerna Shake 120 ML LIQUID PO ×3 (05:07→22:28)
[2024-01-04 06:49] LABS: Bedside Glucose 160 mg/dL (74-106)
[2024-01-04] MEDS: Insulin Glargine-YFGN 100 UNIT/ML Pen 18 UNIT SC (09:17)
[2024-01-04] MEDS: Potassium Chloride Oral Tablet 20 MEQ PO (09:19)
[2024-01-04] MEDS: Multivitamins,Ther W-Minerals Tablet 1 TABLET PO (09:20)
[2024-01-04] MEDS: Amiodarone 200 MG Tablet 100 MG PO (09:21)
[2024-01-04] MEDS: Gabapentin 100 MG Capsule PO ×2 (09:24→18:03)
[2024-01-04] MEDS: APIXABAN 2.5 MG TABLET (WCH) PO ×2 (09:25→22:26)
[2024-01-04] MEDS: Losartan Potassium 100 MG Tablet PO (09:25)
[2024-01-04] MEDS: Tolterodine Tartrate 4 MG CAP.SA PO (09:25)
[2024-01-04] MEDS: Furosemide 40 MG Tablet PO (09:25)
[2024-01-04] MEDS: amLODIPine 10 MG Tablet PO (09:25)
[2024-01-04] MEDS: Menthol/Lanolin/Calamine/Znox 113 GM Tube 1 APPLIC TOPICAL ×2 (09:26→22:21)
[2024-01-04] MEDS: Clopidogrel Bisulfate 75 MG Tablet PO (09:26)
[2024-01-04] MEDS: Senna/Docusate Sodium 1 Tablet 2 TABLET PO ×2 (09:26→22:27)
[2024-01-04] MEDS: Gabapentin 300 MG Capsule PO (22:22)
[2024-01-04] MEDS: Latanoprost 0.005% 1 Bottle 1 DRP EACH EYE (22:23)
[2024-01-04] MEDS: Doxazosin 4 MG Tablet PO (22:25)
[2024-01-04] MEDS: Pramipexole Di-HCl 0.125 MG Tablet PO (22:26)
[2024-01-04] MEDS: Sertraline 50 MG Tablet PO (22:26)
[2024-01-04] MEDS: Ezetimibe 10 MG Tablet PO (22:26)
[2024-01-05 05:06] VITALS: BP 144/66; PULSE 68
[2024-01-05] MEDS: Acetaminophen 500 MG Tablet 1000 MG PO ×3 (05:08→21:56)
[2024-01-05] MEDS: Glucerna Shake 120 ML LIQUID PO ×3 (05:08→22:04)
[2024-01-05 05:09] VITALS: BP 144/66; PULSE 68
[2024-01-05] MEDS: hydrALAZINE 50 MG Tablet 100 MG PO ×2 (05:09→21:53)
[2024-01-05 06:32] LABS: Bedside Glucose 162 mg/dL (74-106)
[2024-01-05 09:00] VITALS: BP 125/60; PULSE 66; RESP 18; TEMP 36.3; O2SAT 97
[2024-01-05] MEDS: Insulin Glargine-YFGN 100 UNIT/ML Pen 18 UNIT SC (09:11)
[2024-01-05] MEDS: Amiodarone 200 MG Tablet 100 MG PO (09:12)
[2024-01-05] MEDS: Losartan Potassium 100 MG Tablet PO (09:12)
[2024-01-05] MEDS: amLODIPine 10 MG Tablet PO (09:12)
[2024-01-05] MEDS: Potassium Chloride Oral Tablet 20 MEQ PO ×2 (09:12→09:13)
[2024-01-05] MEDS: Tolterodine Tartrate 4 MG CAP.SA PO (09:12)
[2024-01-05] MEDS: Senna/Docusate Sodium 1 Tablet 2 TABLET PO ×2 (09:12→21:56)
[2024-01-05] MEDS: Multivitamins,Ther W-Minerals Tablet 1 TABLET PO (09:12)
[2024-01-05] MEDS: Clopidogrel Bisulfate 75 MG Tablet PO (09:13)
[2024-01-05] MEDS: Menthol/Lanolin/Calamine/Znox 113 GM Tube 1 APPLIC TOPICAL ×2 (09:13→22:03)
[2024-01-05] MEDS: Furosemide 40 MG Tablet PO (09:13)
[2024-01-05] MEDS: APIXABAN 2.5 MG TABLET (WCH) PO ×2 (09:13→21:54)
[2024-01-05] MEDS: Gabapentin 100 MG Capsule PO ×2 (09:15→17:18)
[2024-01-05 15:04] VITALS: BP 112/48; PULSE 55
[2024-01-05 21:53] VITALS: BP 129/53; PULSE 55
[2024-01-05] MEDS: Gabapentin 300 MG Capsule PO (21:53)
[2024-01-05] MEDS: Doxazosin 4 MG Tablet PO (21:54)
[2024-01-05] MEDS: Pramipexole Di-HCl 0.125 MG Tablet PO (21:55)
[2024-01-05] MEDS: Ezetimibe 10 MG Tablet PO (21:56)
[2024-01-05] MEDS: Sertraline 50 MG Tablet PO (21:57)
[2024-01-06] MEDS: Glucerna Shake 120 ML LIQUID PO ×2 (05:22→21:36)
[2024-01-06 05:24] VITALS: BP 141/68; PULSE 67
[2024-01-06] MEDS: hydrALAZINE 50 MG Tablet 100 MG PO ×3 (05:24→21:39)
[2024-01-06] MEDS: Acetaminophen 500 MG Tablet 1000 MG PO ×3 (05:24→21:40)
[2024-01-06 06:42] LABS: Bedside Glucose 119 mg/dL (74-106)
[2024-01-06 08:43] VITALS: BP 107/45; PULSE 60; RESP 16; TEMP 36.3; O2SAT 93
[2024-01-06] MEDS: Insulin Glargine-YFGN 100 UNIT/ML Pen 18 UNIT SC (08:46)
[2024-01-06] MEDS: Amiodarone 200 MG Tablet 100 MG PO (08:47)
[2024-01-06] MEDS: Multivitamins,Ther W-Minerals Tablet 1 TABLET PO (08:47)
[2024-01-06] MEDS: Menthol/Lanolin/Calamine/Znox 113 GM Tube 1 APPLIC TOPICAL ×2 (08:47→22:22)
[2024-01-06 08:48] LABS: Absolute Lymphocyte Count 1.62 X10^3/uL (0.83-4.51); Absolute Neutrophil Count 6.3 X10^3/uL (2.0-7.7); Basophil# 0.07 X10^3/uL; Basophil% 0.7 % (0-1); Eosinophil# 0.97 X10^3/uL; Eosinophils% 9.6 % (0-5); Hematocrit 30.5 % (40-54); Hemoglobin 9.8 g/dL (13.0-16.5); Lymphocyte # 1.62 X10^3/ul (0.83-4.51); Lymphocyte % 16.1 % (19-41); Mean Corp Hgb Conc 32.1 g/dL (32-36); Mean Corpuscular Hgb 30.4 pg (27.0-32.0); Mean Corpuscular Volume 94.7 fL (80-94); Mean Platelet Vol. 10.6 fl (6.2-12.0); Monocyte# 1.05 X10^3/uL; Monocyte% 10.4 % (0-10); NRBC Flagged by Analyzer 0 % (0-5); Neutrophil # 6.32 X10^3/uL (2.7-7.7); Neutrophil % 62.6 % (47-70); Platelet Count 265 K/mm3 (150-450); RBC Distribution Width SD 56.1 fl (35.1-43.9); Red Blood Count 3.22 M/mm3 (4.6-6.2); White Blood Count 10.1 K/mm3 (4.4-11.0)
[2024-01-06] MEDS: Tolterodine Tartrate 4 MG CAP.SA PO (08:48)
[2024-01-06] MEDS: Losartan Potassium 100 MG Tablet PO (08:48)
[2024-01-06] MEDS: APIXABAN 2.5 MG TABLET (WCH) PO ×2 (08:48→21:40)
[2024-01-06] MEDS: Senna/Docusate Sodium 1 Tablet 2 TABLET PO ×2 (08:49→21:38)
[2024-01-06] MEDS: Furosemide 40 MG Tablet PO (08:49)
[2024-01-06] MEDS: amLODIPine 10 MG Tablet PO (08:49)
[2024-01-06] MEDS: Clopidogrel Bisulfate 75 MG Tablet PO (08:49)
[2024-01-06] MEDS: Gabapentin 100 MG Capsule PO ×2 (08:51→17:11)
[2024-01-06 09:10] LABS: Anion Gap 6 (5-15); BUN 73 mg/dL (7-18); Calcium,Total 9.4 mg/dL (8.5-10.1); Chloride 105 mmol/L (98-107); Creatinine, Serum 1.87 mg/dL (0.70-1.30); EST Glomerular Filtration Rate 37 mL/min (>60); Est Glom Filt Rate - Afr Amer 44 mL/min (>60); Estimated Creatinine Clearance 32.28 ml/min; Glucose 240 mg/dL (74-106); Potassium 4.1 mmol/L (3.5-5.1); Sodium Level 140 mmol/L (136-145)
[2024-01-06 14:19] VITALS: BP 109/71; PULSE 60
[2024-01-06 14:21] VITALS: PULSE 60
--- NOTE | 2024-01-06 14:25 | NURSING ---
Patient expressed concerns to therapy that he was feeling tired and drowsy lately wondering if it could be from not getting monthly B12 injection. Message relayed to RN. Updated Dr. Huffman. New order for B12 1,000mcg IM x1 now and QMONTH. FARIBA.
[2024-01-06] MEDS: Cyanocobalamin (B12) 1,000 MCG/ML Vial 1000 MCG IM (17:32)
[2024-01-06] MEDS: Gabapentin 300 MG Capsule PO (21:38)
[2024-01-06 21:39] VITALS: BP 131/59; PULSE 63
[2024-01-06] MEDS: Doxazosin 4 MG Tablet PO (21:39)
[2024-01-06] MEDS: Pramipexole Di-HCl 0.125 MG Tablet PO (21:40)
[2024-01-06] MEDS: Sertraline 50 MG Tablet PO (21:41)
[2024-01-06] MEDS: Ezetimibe 10 MG Tablet PO (21:41)
[2024-01-06] MEDS: Latanoprost 0.005% 1 Bottle 1 DRP EACH EYE (21:41)
[2024-01-06 21:49] VITALS: BP 131/59; PULSE 63
[2024-01-07] VITALS (7 sets, daily range): BP systolic 113–149; BP diastolic 53–62; PULSE 61–68; RESP 18; TEMP 36.6; O2SAT 94–96
[2024-01-07] MEDS: Glucerna Shake 120 ML LIQUID PO ×3 (05:41→23:24)
[2024-01-07] MEDS: Acetaminophen 500 MG Tablet 1000 MG PO ×3 (05:42→23:26)
[2024-01-07] MEDS: hydrALAZINE 50 MG Tablet 100 MG PO ×3 (05:42→23:21)
[2024-01-07 06:44] LABS: Bedside Glucose 127 mg/dL (74-106)
[2024-01-07] MEDS: Insulin Glargine-YFGN 100 UNIT/ML Pen 18 UNIT SC (09:49)
[2024-01-07] MEDS: Multivitamins,Ther W-Minerals Tablet 1 TABLET PO (09:50)
[2024-01-07] MEDS: Potassium Chloride Oral Tablet 20 MEQ PO (09:50)
[2024-01-07] MEDS: Amiodarone 200 MG Tablet 100 MG PO (09:51)
[2024-01-07] MEDS: Menthol/Lanolin/Calamine/Znox 113 GM Tube 1 APPLIC TOPICAL ×2 (09:52→23:22)
[2024-01-07] MEDS: APIXABAN 2.5 MG TABLET (WCH) PO ×2 (09:53→23:23)
[2024-01-07] MEDS: Senna/Docusate Sodium 1 Tablet 2 TABLET PO ×2 (09:53→23:24)
[2024-01-07] MEDS: Clopidogrel Bisulfate 75 MG Tablet PO (09:54)
[2024-01-07] MEDS: Losartan Potassium 100 MG Tablet PO (09:54)
[2024-01-07] MEDS: amLODIPine 10 MG Tablet PO (09:55)
[2024-01-07] MEDS: Tolterodine Tartrate 4 MG CAP.SA PO (09:55)
[2024-01-07] MEDS: Furosemide 40 MG Tablet PO (09:55)
[2024-01-07] MEDS: Gabapentin 100 MG Capsule PO ×2 (10:05→17:25)
[2024-01-07] MEDS: Gabapentin 300 MG Capsule PO (23:21)
[2024-01-07] MEDS: Doxazosin 4 MG Tablet PO (23:23)
[2024-01-07] MEDS: Pramipexole Di-HCl 0.125 MG Tablet PO (23:24)
[2024-01-07] MEDS: Ezetimibe 10 MG Tablet PO (23:25)
[2024-01-07] MEDS: Sertraline 50 MG Tablet PO (23:25)
[2024-01-08] VITALS (7 sets, daily range): BP systolic 105–129; BP diastolic 45–58; PULSE 55–68; RESP 14; TEMP 36.3; O2SAT 93–95
[2024-01-08] MEDS: hydrALAZINE 50 MG Tablet 100 MG PO ×3 (05:44→21:35)
[2024-01-08] MEDS: Acetaminophen 500 MG Tablet 1000 MG PO ×3 (05:44→21:37)
[2024-01-08] MEDS: Glucerna Shake 120 ML LIQUID PO ×3 (05:44→21:39)
[2024-01-08 06:41] LABS: Bedside Glucose 139 mg/dL (74-106)
[2024-01-08] MEDS: Insulin Glargine-YFGN 100 UNIT/ML Pen 18 UNIT SC (08:41)
[2024-01-08] MEDS: Menthol/Lanolin/Calamine/Znox 113 GM Tube 1 APPLIC TOPICAL ×2 (08:42→21:35)
[2024-01-08] MEDS: Potassium Chloride Oral Tablet 20 MEQ PO (08:42)
[2024-01-08] MEDS: Multivitamins,Ther W-Minerals Tablet 1 TABLET PO (08:42)
[2024-01-08] MEDS: Gabapentin 100 MG Capsule PO ×2 (08:45→17:03)
[2024-01-08] MEDS: Senna/Docusate Sodium 1 Tablet 2 TABLET PO ×2 (08:51→21:36)
[2024-01-08] MEDS: Tolterodine Tartrate 4 MG CAP.SA PO (08:52)
[2024-01-08] MEDS: Furosemide 40 MG Tablet PO (08:52)
[2024-01-08] MEDS: amLODIPine 10 MG Tablet PO (08:52)
[2024-01-08] MEDS: Amiodarone 200 MG Tablet 100 MG PO (08:53)
[2024-01-08] MEDS: Losartan Potassium 100 MG Tablet PO (08:53)
[2024-01-08] MEDS: Clopidogrel Bisulfate 75 MG Tablet PO (09:12)
[2024-01-08] MEDS: APIXABAN 2.5 MG TABLET (WCH) PO ×2 (09:12→21:38)
--- NOTE | 2024-01-08 20:14 | NURSING ---
Spoke w/ spouse and resident at length re: concerns about mobility and transfers upon dc from TCU. They are concerned about transfers and mobility at [facility] d/t staffing and spouse is unsure if she can safely provide assistance. General explanation provided about dc planning among IDT and the insurance. Resident reports he will talk to therapy tomorrow about coordinating training w/ spouse. Encouraged spouse to call and speak to SW. She is unsure when she will place the call d/t recent move to [facility] and still has boxes to unpack. Active listening provided throughout the interaction. Left vm for Tiffanie IRVIN, to update on the above noted info.
[2024-01-08] MEDS: Gabapentin 300 MG Capsule PO (21:34)
[2024-01-08] MEDS: Pramipexole Di-HCl 0.125 MG Tablet PO (21:37)
[2024-01-08] MEDS: Ezetimibe 10 MG Tablet PO (21:37)
[2024-01-08] MEDS: Doxazosin 4 MG Tablet PO (21:38)
[2024-01-08] MEDS: Sertraline 50 MG Tablet PO (21:38)
--- NOTE | 2024-01-08 21:52 | NURSING ---
Patient requested and received prune juice with butter.
[2024-01-09] VITALS (8 sets, daily range): BP systolic 117–149; BP diastolic 44–59; PULSE 61–73; RESP 16; TEMP 36.4; O2SAT 92
[2024-01-09] MEDS: Acetaminophen 500 MG Tablet 1000 MG PO ×3 (05:12→22:25)
[2024-01-09] MEDS: hydrALAZINE 50 MG Tablet 100 MG PO ×3 (05:12→22:23)
[2024-01-09 06:09] LABS: Bedside Glucose 162 mg/dL (74-106)
[2024-01-09] MEDS: Potassium Chloride Oral Tablet 20 MEQ PO (08:47)
[2024-01-09] MEDS: Insulin Glargine-YFGN 100 UNIT/ML Pen 18 UNIT SC (08:47)
[2024-01-09] MEDS: Amiodarone 200 MG Tablet 100 MG PO (08:48)
[2024-01-09] MEDS: Multivitamins,Ther W-Minerals Tablet 1 TABLET PO (08:48)
[2024-01-09] MEDS: Menthol/Lanolin/Calamine/Znox 113 GM Tube 1 APPLIC TOPICAL ×2 (08:48→22:24)
[2024-01-09] MEDS: Losartan Potassium 100 MG Tablet PO (08:49)
[2024-01-09] MEDS: Furosemide 40 MG Tablet PO (08:49)
[2024-01-09] MEDS: amLODIPine 10 MG Tablet PO (08:49)
[2024-01-09] MEDS: Tolterodine Tartrate 4 MG CAP.SA PO (08:49)
[2024-01-09] MEDS: APIXABAN 2.5 MG TABLET (WCH) PO ×2 (08:49→22:24)
[2024-01-09] MEDS: Clopidogrel Bisulfate 75 MG Tablet PO (08:50)
[2024-01-09] MEDS: Gabapentin 100 MG Capsule PO ×2 (08:52→17:07)
--- NOTE | 2024-01-09 15:16 | CASEMGMT ---
Social Work SW received outcome from insurance with LCD 01/10, DC 01/11. SW phoned to update on DC date, explained appeal rights and discussed DC plans. SW cited VM left from shift supervisor film processing RN on 's concerns with [facility] meeting pt's needs. confirmed, though cannot afford for pt to DC to another SNF and does want him adjusted to [place] with her. denied appeal. inquired about therapy training to see what she can assist pt with at DC. SW explained pt is a x2 assist and not be assisting pt with any physical needs, [facility] will be assisting pt. Though offered for to visit during a therapy session. stated she will speak with pt and decide. SW explained this worker will update [facility] with pt's current LOC to ensure they can accept pt. appreciative. If so, SW to coordinate skilled HHC through [facility], who is following pt for services. agreeable. SW to inquire to [facility] about providing DC w/c transport. SW to speak with pt. appreciative. SW spoke with pt to discuss DC date and this worker coordinating with [facility]. Explained above information from . Pt stated he coordinated with therapy for to participate in therapy training this week to be able to assist pt at [facility]. SW also explained to pt that he is x2 assist and will not able to assist; [facility] is assisting pt with his needs. Pt expressed understanding and will discuss with this evening during her visit. ALBARO sent updated clinicals to [facility] via [employer]. Referred to [facility] via [facility] for PT/OT/SN. Plan: DC to [facility] [place] with 01/11, [facility] PT/OT/SN Tiffanie Meyers, CONCHA MEJIA
--- NOTE | 2024-01-09 18:34 | DS.PCM_ITS ---
Providers Date of Admission: 12/15/23 Primary Care Physician: Dr. Jennifer Watt MD Consultations 12/23/23 12:45 Consult: Onc/Wound/senior communications engineer Routine Comment: Comments:: heel pressure injury Reason For Visit: LEFT FEMORAL NECK FRACTURE Diagnosis Discharge Diagnosis (1) Left displaced femoral neck fracture: Status: Acute Code(s): S72.002A - Fracture of unspecified part of neck of left femur, initial encounter for closed fracture Plan 83 year old male with below past medical history hospitalized for left hip fracture, underwent left hip hemiarthroplasty 12/11/[address] Tobin, postoperative course complicated by urinary retention requiring to catheter, hypokalemia, admitted to TCU with debility, here for rehabilitation, strengthening, prior to discharge [facility] with . * Debility - PT/OT. * Pain - Tylenol 1000mg q8, Oxycodone 5mg q4 prn pain (4-10). * Bowel - senna/colace 2 tablets bid, Dulcolax 10mg pr daily prn. * Adult immunization - Administer pneumonia vaccine, covid vaccine, flu vaccine as appropriate. * DVT prophylaxis - on Eliquis. * Atrial fibrillation - Amiodarone 100mg daily, Eliquis 2.5mg bid. * Stroke - Plavix 75mg daily, Eliquis 2.5mg bid. * BPH - Doxazosin 4mg qhs, To catheter, voiding trials. * Hyperlipidemia - Zetia 10mg qhs. * HFpEF - Hydralazine 100mg tid, Furosemide 40mg daily. * Diabetic polyneuropathy - Gabapentin 100mg bidcm, 300mg qhs. * Diabetes Mellitus II - Glargine 18 units qam. * Glaucoma - Latanoprost 1gtt ou mwf. * Nutrition - MVI 1 tablet daily. * Hypokalemia - KCL 20meq daily. * Restless leg syndrome - Mirapex 0.125mg qhs. 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 * Overactive bladder - Tolterodine 4mg daily. Medications at Discharge Home Medications multivitamin,[id number] (Complete Multivitamin tablet) 1 tab PO QDAY supplement 03/03/17 Handicap Placard #1 ea 02/12/21 latanoprost 0.005 % eye drops 1 drp EACH EYE .COMPLEX eyes 02/24/22 pen needle, diabetic 32 gauge x /32 (BD Sanaz 2nd Gen Pen Needle) #50 ea 06/17/22 sertraline 50 mg tablet 50 mg PO QHS mood #90 tabs 02/23/23 ezetimibe 10 mg tablet (Zetia) 10 mg PO QHS cholesterol #90 tabs 05/04/23 gabapentin 100 mg capsule 100 mg PO BID pain #180 caps 05/04/23 gabapentin 300 mg capsule 300 mg PO 2100 pain #90 caps 05/04/23 potassium chloride 20 mEq tablet,extended release(part/cryst) 20 meq PO DAILYCM supplement 30 days #30 tabs 08/01/23 clopidogrel 75 mg tablet (Plavix) 75 mg PO DAILY blood thinner #90 tabs 08/12/23 amiodarone 200 mg tablet 100 mg (1/2 x 200 mg) PO DAILY BP #45 tabs 08/16/23 furosemide 40 mg tablet 40 mg PO DAILY Fluid retention #90 TABLETS 08/22/23 hydralazine 100 mg tablet 100 mg PO TID BP #270 tabs 09/22/23 oxybutynin chloride 15 mg tablet,extended release 24 hr 15 mg PO DAILY bladder 10/28/23 pramipexole 0.125 mg tablet 0.125 mg PO QHS parkinsons #90 tabs 11/08/23 doxazosin 4 mg tablet 4 mg PO QHS Urinary Retention #30 tabs 11/15/23 insulin glargine-yfgn 100 unit/mL (3 mL) subcutaneous pen 18 unit (0.18 mL) subcut BREAKFAST Diabetes #15 mL 11/23/23 apixaban 5 mg tablet (Eliquis) 2.5 mg (1/2 x 5 mg) PO BID Blood thinner 28 days #56 tabs 12/15/23 acetaminophen 500 mg tablet 1,000 mg (2 x 500 mg) PO Q8 #0 tabs 01/09/24 amlodipine 10 mg tablet 10 mg PO DAILY 30 days #30 tabs 01/09/24 cyanocobalamin (vitamin B-12) 1,000 mcg/mL injection solution 1,000 mcg IM QMONTH #0 mL 01/09/24 losartan 100 mg tablet 100 mg PO DAILY 30 days #30 tabs 01/09/24 Hospital Course Operations - (Left hip hemiarthroplasty.) Procedures None Summary of Care Provided Minutes Spent on Discharge: 35 Hospital Course: 83 year old male with below past medical history hospitalized for left hip fracture, underwent left hip hemiarthroplasty 12/11/[address] Tobin, postoperative course complicated by urinary retention requiring to catheter, hypokalemia, admitted to TCU with debility, here for rehabilitation, strengthening, prior to discharge [facility] with . Discharge to [facility] with 01/12/2024, [facility] PT/OT/SN. Physical Exam Const alert General Appearance: cooperative HEENT normocephalic Eyes PERRL and EOMs intact bilaterally Neck supple, no JVD and no carotid bruits Resp normal respiratory effort, normal air movement and clear to auscultation bilaterally Cardio regular rate and regular rhythm GI normal to inspection, nondistended, normoactive bowel sounds, non-tender and non-distended Extremity normal capillary refill General Extremity: Negative for edema Skin no rashes or lesions noted General Skin Exam: no breakdown Psych affect normal Appearance: appropriate Weight / BMI Weight Weight: 81.238 kg Body Mass Index (BMI) 24.3 ABG / Lab / Microbiology Data 01/06/24 08:33 01/06/24 08:33 Laboratory: Laboratory Results - last 24 hr 01/09/24 05:50: POC Glucose 162 H Microbiology: Microbiology 12/27/23 05:25 Nasal Secretion SARS-CoV-2 Antigen (Rapid) - Final 12/20/23 05:37 Nasal Secretion SARS-CoV-2 Antigen (Rapid) - Final 12/15/23 18:04 Nasal Secretion SARS-CoV-2 Antigen (Rapid) - Final D/C Instructions Discharge Diet: No restrictions Discharge Activity: Return to Normal Activity, May Shower and Use Walker Weight Bearing Status: Weight bearing as tolerated Call your doctor if you observe: Fever of 101 or Higher, Inability to urinate, Inability to have a bowel movement, Shortness of breath, Dizziness, Fainting spells, Swelling in the ankles, Chest pain and Uncontrolled pain Please Follow Up With: Shon Tobin DO When: 01/26/2024. Meaningful Use Info Meaningful Use Meaningful Use Diagnoses (Choose all that apply): None applicable Ischemic Stroke Statin Dosing Therapy Reference: STATIN DOSE THERAPY REFERENCE: * Patients > 75 years receive moderate or high dose statin therapy. * Patients 75 years or YOUNGER should receive HIGH intensity statin dose unless contraindicated. You will be required to document reason for non-treatment if statin daily dose does not meet guidelines. HIGH DOSE STATIN THERAPY DAILY Atorvastatin > than or = to 40 mg Rosuvastatin > than or = to 20 mg Amlodipine + Atorvastatin > than or = to 2.5/40 mg Ezetimibe + Simvastatin 10/80 mg Simvastatin 80mg Discharge Plan Admission Admit Date/Time: 12/15/23 16:24 Primary Reason for Your Visit: Debility. Attending Provider: Johnathan Huffman Chi Primary Care Provider: Jennifer Watt Instructions Additional Instructions / Restrictions: Discharge to [facility] with 01/12/2024, [facility] PT/OT/SN. Discharge Orders/Prescriptions Prescriptions: New acetaminophen 500 mg Tablet 1,000 mg PO Q8 Qty: 0 0RF amlodipine 10 mg Tablet 10 mg PO DAILY 30 Days Qty: 30 0RF cyanocobalamin (vitamin B-12) 1,000 mcg/mL Solution 1,000 mcg IM QMONTH Qty: 0 0RF losartan 100 mg Tablet 100 mg PO DAILY 30 Days Qty: 30 0RF Continued multivitamin,[id number] [Complete Multivitamin] tablet 1 tab PO QDAY amiodarone 200 mg tablet 100 mg PO DAILY Qty: 45 3RF latanoprost 0.005 % drops 1 drp EACH EYE .COMPLEX Patient Comments: M-W-F Rx Instructions: 1 drp into Each EYE mwf; @hs oxybutynin chloride 15 mg tablet extended release 24hr 15 mg PO DAILY Eliquis 5 mg Tablet 2.5 mg PO BID 28 Days Qty: 56 0RF potassium chloride 20 mEq Tablet,Er Particles/Crystals 20 meq PO DAILYCM 30 Days Qty: 30 0RF sertraline 50 mg tablet 50 mg PO QHS Qty: 90 3RF ezetimibe [Zetia] 10 mg tablet 10 mg PO QHS Qty: 90 3RF Rx Instructions: take at bedtime gabapentin 100 mg capsule 100 mg PO BID Qty: 180 3RF gabapentin 300 mg capsule 300 mg PO 2100 Qty: 90 3RF clopidogrel [Plavix] 75 mg tablet 75 mg PO DAILY Qty: 90 3RF furosemide 40 mg tablet 40 mg PO DAILY Qty: 90 3RF hydralazine 100 mg tablet 100 mg PO TID Qty: 270 3RF pramipexole 0.125 mg tablet 0.125 mg PO QHS Qty: 90 3RF doxazosin 4 mg tablet 4 mg PO QHS Qty: 30 2RF insulin glargine-yfgn 100 unit/mL (3 mL) insulin pen 18 unit subcut BREAKFAST Qty: 15 3RF Discontinued Venofer 200 mg iron/10 mL solution 300 mg .ROUTE .COMPLEX Qty: 15 2RF Rx Instructions: 300 mg IV every 2 weeks for 3 doses oxycodone 5 mg Tablet 5 mg PO Q4H PRN PRN (Reason: Pain Score 4-10 Or Pre Pt/Ot) 3 Days Qty: 18 0RF No Action (DME) Handicap Placard See Rx Instructions .Route .MEDSUPPLY Qty: 1 0RF Rx Instructions: Length of time: 5 years (DME) pen needle, diabetic [BD Sanaz 2nd Gen Pen Needle] 32 gauge x 5/32 needle See Rx Instructions .ROUTE .MEDSUPPLY Qty: 50 2RF Rx Instructions: use once daily to adminster insulin as directed. Referrals / Follow Up: Jennifer Watt MD [Primary Care Provider] - Disposition Disposition (needs filled in before D/C Order can be placed): Assisted Living
[2024-01-09] MEDS: Glucerna Shake 120 ML LIQUID PO (22:21)
[2024-01-09] MEDS: Senna/Docusate Sodium 1 Tablet 2 TABLET PO (22:23)
[2024-01-09] MEDS: Sertraline 50 MG Tablet PO (22:24)
[2024-01-09] MEDS: Ezetimibe 10 MG Tablet PO (22:24)
[2024-01-09] MEDS: Pramipexole Di-HCl 0.125 MG Tablet PO (22:24)
[2024-01-09] MEDS: Latanoprost 0.005% 1 Bottle 1 DRP EACH EYE (22:26)
[2024-01-09] MEDS: Doxazosin 4 MG Tablet PO (22:26)
[2024-01-09] MEDS: Gabapentin 300 MG Capsule PO (22:28)
[2024-01-10] VITALS (8 sets, daily range): BP systolic 121–140; BP diastolic 49–59; PULSE 60–69; RESP 14–17; TEMP 36.3–36.7; O2SAT 96–97; BMI 23.6
[2024-01-10] MEDS: Acetaminophen 500 MG Tablet 1000 MG PO ×3 (05:08→21:12)
[2024-01-10] MEDS: hydrALAZINE 50 MG Tablet 100 MG PO ×3 (05:08→21:11)
[2024-01-10] MEDS: Glucerna Shake 120 ML LIQUID PO ×2 (05:08→21:11)
[2024-01-10 06:25] LABS: Bedside Glucose 158 mg/dL (74-106)
[2024-01-10] MEDS: Gabapentin 100 MG Capsule PO ×2 (07:59→16:23)
[2024-01-10] MEDS: Insulin Glargine-YFGN 100 UNIT/ML Pen 18 UNIT SC (08:50)
[2024-01-10] MEDS: Potassium Chloride Oral Tablet 20 MEQ PO (08:51)
[2024-01-10] MEDS: Menthol/Lanolin/Calamine/Znox 113 GM Tube 1 APPLIC TOPICAL ×2 (08:52→21:15)
[2024-01-10] MEDS: Amiodarone 200 MG Tablet 100 MG PO (08:52)
[2024-01-10] MEDS: Multivitamins,Ther W-Minerals Tablet 1 TABLET PO (08:52)
[2024-01-10] MEDS: Losartan Potassium 100 MG Tablet PO (08:53)
[2024-01-10] MEDS: APIXABAN 2.5 MG TABLET (WCH) PO ×2 (08:54→21:12)
[2024-01-10] MEDS: amLODIPine 10 MG Tablet PO (08:54)
[2024-01-10] MEDS: Tolterodine Tartrate 4 MG CAP.SA PO (08:54)
[2024-01-10] MEDS: Furosemide 40 MG Tablet PO (08:54)
[2024-01-10] MEDS: Clopidogrel Bisulfate 75 MG Tablet PO (08:55)
--- NOTE | 2024-01-10 14:43 | WOUNDNOTE ---
wound photo: left heel
[2024-01-10] MEDS: Gabapentin 300 MG Capsule PO (21:11)
[2024-01-10] MEDS: Senna/Docusate Sodium 1 Tablet 2 TABLET PO (21:12)
[2024-01-10] MEDS: Ezetimibe 10 MG Tablet PO (21:13)
[2024-01-10] MEDS: Pramipexole Di-HCl 0.125 MG Tablet PO (21:13)
[2024-01-10] MEDS: Doxazosin 4 MG Tablet PO (21:13)
[2024-01-10] MEDS: Sertraline 50 MG Tablet PO (21:14)
[2024-01-11] VITALS (7 sets, daily range): BP systolic 109–132; BP diastolic 44–61; PULSE 57–69; RESP 16; TEMP 37; O2SAT 96–97
[2024-01-11 06:27] LABS: Bedside Glucose 134 mg/dL (74-106)
[2024-01-11] MEDS: Glucerna Shake 120 ML LIQUID PO ×3 (06:44→22:36)
[2024-01-11] MEDS: hydrALAZINE 50 MG Tablet 100 MG PO ×2 (06:44→22:22)
[2024-01-11] MEDS: Acetaminophen 500 MG Tablet 1000 MG PO ×3 (06:45→22:23)
[2024-01-11 08:51] LABS: Anion Gap 7 (5-15); BUN 73 mg/dL (7-18); BUN/Creat Ratio 42.7 RATIO (10-20); Calcium,Total 9.4 mg/dL (8.5-10.1); Chloride 105 mmol/L (98-107); Creatinine, Serum 1.71 mg/dL (0.70-1.30); EST Glomerular Filtration Rate 41 mL/min (>60); Est Glom Filt Rate - Afr Amer 49 mL/min (>60); Glucose 192 mg/dL (74-106); Potassium 4.1 mmol/L (3.5-5.1); Sodium Level 139 mmol/L (136-145)
[2024-01-11] MEDS: Insulin Glargine-YFGN 100 UNIT/ML Pen 18 UNIT SC (09:10)
[2024-01-11] MEDS: Potassium Chloride Oral Tablet 20 MEQ PO (09:12)
[2024-01-11] MEDS: Gabapentin 100 MG Capsule PO ×2 (09:21→16:49)
[2024-01-11] MEDS: Multivitamins,Ther W-Minerals Tablet 1 TABLET PO (09:21)
[2024-01-11] MEDS: Menthol/Lanolin/Calamine/Znox 113 GM Tube 1 APPLIC TOPICAL ×2 (09:21→22:23)
[2024-01-11] MEDS: Amiodarone 200 MG Tablet 100 MG PO (09:22)
[2024-01-11] MEDS: Tolterodine Tartrate 4 MG CAP.SA PO (09:22)
[2024-01-11] MEDS: Losartan Potassium 100 MG Tablet PO (09:22)
[2024-01-11] MEDS: Furosemide 40 MG Tablet PO (09:23)
[2024-01-11] MEDS: amLODIPine 10 MG Tablet PO (09:23)
[2024-01-11] MEDS: APIXABAN 2.5 MG TABLET (WCH) PO ×2 (09:23→22:23)
[2024-01-11] MEDS: Clopidogrel Bisulfate 75 MG Tablet PO (09:23)
--- NOTE | 2024-01-11 13:36 | CASEMGMT ---
PHQ9 (0) and BIMS () interviews completed on this date for MDS assessment. ROBERTO Dias
--- NOTE | 2024-01-11 18:56 | CASEMGMT ---
Social Work SW received VM time stamped 01/09 at 1624 - VM message from Alva at [facility] intake stating a referral has been made for pt by [facility] at [facility] and requested visit to pt. SW unaware of referral. Spoke with nursing staff and viewed documentation; none noted and nursing staff unaware of hospice visit too. 829 - ALBARO presented to pt's room to inquire about pt's awareness to hospice referral. Pt stated hospice did visit him last evening; he was not aware of it; unsure why the referral was made and denied services to the hospice nurse. SW inquired pt's education to hospice services and explored pt's wishes for treatment goals. Pt explained he wants to continue with therapy; does not feel he is at end of life; does not have wishes for comfort care at this time. SW apologized for misunderstanding and assured pt this worker did not make the referral and did not have any awareness to it. SW assured pt this worker will investigate this referral. Pt appreciative. 929 - ALBARO phoned to inquire about awareness to hospice referral. stated she was made aware when pt called her during the visit. stated the services sounded positive, but unsure the goals for care for pt with hospice. SW inquired if Sakshi had spoken to her about a hospice referral. denied. inquired if pt would qualify for hospice services, questioning pt's wound care needs. SW explained to that pt denied hospice services and this worker is unaware of hospice's determination for pt's qualification. expressed relief to hear that, stating I was beginning to fret that there was some medical conditions I didn't know about. SW confirmed there are no changes to his medical care or conditions known to this worker at this time. appreciative. ALBARO collaborated with underground distribution engineer Management on above information. Community Support Professional to gather further information and discuss situation with [facility] at [facility] and follow up with pt and this worker. 1699 - Community Support Professional had spoken to pt and followed up with this worker. Pt continued to deny hospice services and wishes to pursue therapy. Community Support Professional to follow up with Sakshi. -- 1819 - received secure message from TCU RN stating [facility] nurse was present to meet with pt and . ALBARO presented to nurse's station and spoke with hospice nurse; inquiring about who placed the referral as this worker was unaware. Jocelynn, RN, stated my boss told me to come meet with the pt and . SW explained there has been some back and forth conversations on hospice services and this worker to speak with pt/ and Community Support Professional prior to nurse visiting to ensure approval. SW presented to pt's bedside where was present. SW inquired if both were aware of the hospice nurse visit. confirmed she scheduled to meet with the nurse at 1800. SW inquired about the initiation of the visit given the denial of services during the visit last evening and today with this worker and Community Support Professional of . unaware that pt just an hour prior had denied hospice services to Community Support Professional of , and stated this is who is going to help his wounds. SW asked questions in several ways to determine origin of referral and ensure understanding of hospice services. stated we didn't know we couldn't have therapy and wound care at the same time. We were told hospice would be helping heal his wounds. If it's between his wounds and therapy, we choose his wounds. So whatever gets us that, that is what we want. Pt confirmed acceptance of wound care via hospice and putting therapy on hold until wounds heal. SW confirmed. ALBARO phoned Community Support Professional of to update on hospice nurse visit. Pt and are agreeable to visit, hospice nurse can visit. SW updated hospice nurse that pt/ are agreeable to visit; thanked nurse for her patience and apologized as this worker was unaware of referral/scheduled visit. Nurse stated Sakshi made the referral. SW provided nurse with this worker's contact information and requested a call after visit to update on outcome so this worker can make adjustments to DC plan, if needed, since currently skilled HHC is ordered. Nurse agreed. SW will continue to follow. Tiffanie Meyers MSW GAS TRUCK DRIVER
[2024-01-11] MEDS: Gabapentin 300 MG Capsule PO (22:20)
[2024-01-11] MEDS: Pramipexole Di-HCl 0.125 MG Tablet PO (22:22)
[2024-01-11] MEDS: Ezetimibe 10 MG Tablet PO (22:22)
[2024-01-11] MEDS: Doxazosin 4 MG Tablet PO (22:22)
[2024-01-11] MEDS: Sertraline 50 MG Tablet PO (22:22)
[2024-01-11] MEDS: Senna/Docusate Sodium 1 Tablet 2 TABLET PO (22:23)
[2024-01-11] MEDS: Latanoprost 0.005% 1 Bottle 1 DRP EACH EYE (22:26)
[2024-01-12] MEDS: Glucerna Shake 120 ML LIQUID PO (04:51)
[2024-01-12 04:52] VITALS: BP 131/59; PULSE 75; RESP 18; TEMP 36.9; O2SAT 95
[2024-01-12 04:54] VITALS: BP 131/59; PULSE 75
[2024-01-12] MEDS: Acetaminophen 500 MG Tablet 1000 MG PO (04:54)
[2024-01-12] MEDS: hydrALAZINE 50 MG Tablet 100 MG PO (04:54)
[2024-01-12] MEDS: Bisacodyl 10 MG Suppository RC (05:01)
[2024-01-12 06:24] LABS: Bedside Glucose 189 mg/dL (74-106)
[2024-01-12] MEDS: Insulin Glargine-YFGN 100 UNIT/ML Pen 18 UNIT SC (08:50)
--- NOTE | 2024-01-12 08:51 | CASEMGMT ---
Social Work Pt is now choosing services through [facility]. Referral to [facility] cancelled. [facility] to transport at 0930. Nursing staff ROBERTO Gooden
[2024-01-12] MEDS: Multivitamins,Ther W-Minerals Tablet 1 TABLET PO (08:59)
[2024-01-12] MEDS: Amiodarone 200 MG Tablet 100 MG PO (08:59)
[2024-01-12] MEDS: Potassium Chloride Oral Tablet 20 MEQ PO (08:59)
[2024-01-12] MEDS: APIXABAN 2.5 MG TABLET (WCH) PO (09:00)
[2024-01-12] MEDS: Losartan Potassium 100 MG Tablet PO (09:00)
[2024-01-12] MEDS: Tolterodine Tartrate 4 MG CAP.SA PO (09:00)
[2024-01-12] MEDS: Gabapentin 100 MG Capsule PO (09:01)
[2024-01-12] MEDS: Senna/Docusate Sodium 1 Tablet 2 TABLET PO (09:01)
[2024-01-12] MEDS: Clopidogrel Bisulfate 75 MG Tablet PO (09:01)
[2024-01-12] MEDS: Furosemide 40 MG Tablet PO (09:01)
[2024-01-12] MEDS: amLODIPine 10 MG Tablet PO (09:01)
[2024-01-12] MEDS: Menthol/Lanolin/Calamine/Znox 113 GM Tube 1 APPLIC TOPICAL (09:02)
[2024-01-12 10:21] VITALS: BP 115/51; PULSE 73; RESP 20; TEMP 37.1; O2SAT 98
== END 2024-01-12 09:45 | disposition hospice, inpatient (51) | DRG 560 ==
PROVIDERS: Admitting Provider Family Medicine Geriatric Medicine; PCP Internal Medicine; Referring Provider Family Medicine Geriatric Medicine; Visit Provider Family Medicine Geriatric Medicine
DX: S72.002D Fracture of unspecified part of neck of left femur, subsequent encounter for closed fracture with routine healing (principal); I50.32 Chronic diastolic (congestive) heart failure; I11.0 Hypertensive heart disease with heart failure; E11.42 Type 2 diabetes mellitus with diabetic polyneuropathy; G25.81 Restless legs syndrome; I48.0 Paroxysmal atrial fibrillation; E11.39 Type 2 diabetes mellitus with other diabetic ophthalmic complication; E11.65 Type 2 diabetes mellitus with hyperglycemia; F32.A Depression, unspecified; Z79.4 Long term (current) use of insulin; E78.5 Hyperlipidemia, unspecified; E87.6 Hypokalemia; W19.XXXD Unspecified fall, subsequent encounter; I25.10 Atherosclerotic heart disease of native coronary artery without angina pectoris; G47.33 Obstructive sleep apnea (adult) (pediatric); H40.9 Unspecified glaucoma; N40.1 Benign prostatic hyperplasia with lower urinary tract symptoms; N32.81 Overactive bladder; R33.8 Other retention of urine; Z96.642 Presence of left artificial hip joint; Z79.899 Other long term (current) drug therapy; Z79.02 Long term (current) use of antithrombotics/antiplatelets; Z79.01 Long term (current) use of anticoagulants
CPT/HCPCS: 36415; 73502; 80048; 82962; 85025; 87811; 92526; 92610; 97110; 97116; 97162; 97166; 97530; 97535; 97802; A4216; J3420

== ENCOUNTER → 2024-01-26 | Outpatient (CLI) | payer MEDICARE, SELFPAY ==
[2024-01-26 17:47] LABS: Hematocrit 32.7 % (40-54); Hemoglobin 10.8 g/dL (13.0-16.5); Mean Corpuscular Hgb 31.3 pg (27.0-32.0); Mean Corpuscular Volume 94.8 fL (80-94); Mean Platelet Vol. 11.4 fl (6.2-12.0); Platelet Count 252 K/mm3 (150-450); RBC Distribution Width CV 15.1 % (11.6-14.6); RBC Distribution Width SD 52.1 fl (35.1-43.9); Red Blood Count 3.45 M/mm3 (4.6-6.2); White Blood Count 8.1 K/mm3 (4.4-11.0)
[2024-01-26 18:03] LABS: Ferritin 664 ng/mL (26-388); Iron 39 ug/dL (65-175); Iron Binding Capacity,Total 255 ug/dL (250-450)
== END | disposition home or self-care (01) ==
PROVIDERS: PCP Internal Medicine; Referring Provider Psychiatry & Neurology Neurology; Visit Provider Psychiatry & Neurology Neurology
DX: D64.9 Anemia, unspecified (principal); Z86.2 Personal history of diseases of the blood and blood-forming organs and certain disorders involving the immune mechanism
CPT/HCPCS: 36415; 82728; 83540; 83550; 85027

== ENCOUNTER 2024-02-07 11:30 | Outpatient (RCR) | payer MEDICARE, SELFPAY ==
[2024-01-31 09:10] VITALS: BP 141/85; PULSE 59; RESP 14; TEMP 36.2; BMI 23.0
--- NOTE | 2024-01-31 10:50 | PCM.WC.HP ---
History of Present Illness Date of Service: 01/31/24 Progress of Wound: 83-year-old male seen for a left heel pressure ulceration. Patient suffered a hip fracture in early December which he is predominantly been nonweightbearing since that time of that injury. Patient did undergo hip surgery. Patient has recently been converted to DNR CCA is currently on hospice care. At current patient denies any fever chills nausea vomiting chest pain calf pain shortness of breath. Patient has been treating the wound site himself. Notes no signs of infection or pain. Patient has been offloading the heel to left lower extremity via heel float. No other complaints. 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 [facility] Medical History Diabetes mellitus, type 2 Osteoarthritis Uncontrolled hypertension Closed displaced fracture of left femoral neck History of CHF (congestive heart failure) Obstructive sleep apnea Neuropathic pain Physical debility Fall Current use of insulin Back pain due to injury Restless legs Syncope Kidney stones PAF (paroxysmal atrial fibrillation) CHF (congestive heart failure) Anemia Weakness Wears glasses Depression Rash Insulin dependent diabetes mellitus Walker as ambulation aid Prostate disease Low iron Restless legs Stroke/cerebrovascular accident Dietary restriction Non-smoker BiPAP (biphasic positive airway pressure) dependence History of edema History of echocardiogram Cardiology follow-up encounter BPH (benign prostatic hyperplasia) Congestive heart failure Pneumonia Incontinence Limb weakness Unsteadiness Chronic anemia Hypertension Coronary artery disease Right renal artery stenosis Fatigue Ventricular tachycardia seen on monitor and storage bin tender (02/20/21) Peripheral vascular occlusive disease Type 2 diabetes mellitus Hyperlipidemia Essential hypertension History of CVA (cerebrovascular accident) (12/2020) Obstructive Sleep Apnea-Hypopnea Syndrome Absent pedal pulses Skin lesion of face Normocytic normochromic anemia Depression Dysphagia Proteinuria due to type 2 diabetes mellitus Facial droop due to acute stroke Acute left-sided muscle weakness Osteoarthritis Right pontine CVA Recurrent inguinal hernia of right side without obstruction or gangrene Home Medications ?Medication ?Instructions ?Recorded ?Last Taken ?Type Handicap Placard #1 ea 02/12/21 Unknown Rx latanoprost 0.005 % eye drops 1 drp EACH EYE .COMPLEX eyes 02/24/22 12/14/23 History pen needle, diabetic 32 gauge x #50 ea 06/17/22 Unknown Rx 5/32 (BD Sanaz 2nd Gen Pen Needle) sertraline 50 mg tablet 50 mg PO QHS mood #90 tabs 02/23/23 12/14/23 Rx gabapentin 100 mg capsule 100 mg PO BID pain #180 caps 05/04/23 12/15/23 Rx gabapentin 300 mg capsule 300 mg PO 2100 pain #90 caps 05/04/23 12/14/23 Rx potassium chloride 20 mEq 20 meq PO DAILYCM supplement 30 08/01/23 12/14/23 Rx tablet,extended release(part/cryst) days #30 tabs clopidogrel 75 mg tablet (Plavix) 75 mg PO DAILY blood thinner #90 08/12/23 12/15/23 Rx tabs amiodarone 200 mg tablet 100 mg (1/2 x 200 mg) PO DAILY BP 08/16/23 Unknown Rx #45 tabs furosemide 40 mg tablet 40 mg PO DAILY Fluid retention #90 08/22/23 12/14/23 Rx TABLETS hydralazine 100 mg tablet 100 mg PO TID BP #270 tabs 09/22/23 12/15/23 Rx oxybutynin chloride 15 mg 15 mg PO DAILY bladder 10/28/23 12/15/23 History tablet,extended release 24 hr pramipexole 0.125 mg tablet 0.125 mg PO QHS parkinsons #90 tabs 11/08/23 12/14/23 Rx doxazosin 4 mg tablet 4 mg PO QHS Urinary Retention #30 11/15/23 12/14/23 Rx tabs acetaminophen 500 mg tablet 1,000 mg (2 x 500 mg) PO Q8 #0 tabs 01/09/24 Unknown Rx amlodipine 10 mg tablet 10 mg PO DAILY 30 days #30 tabs 01/09/24 Unknown Rx cyanocobalamin (vitamin B-12) 1,000 mcg IM QMONTH #0 mL 01/09/24 Unknown Rx 1,000 mcg/mL injection solution bisacodyl 10 mg rectal suppository 10 mg WI QDAY PRN 01/26/24 Unknown History dextromethorphan-guaifenesin 30 1 tab PO Q12H 01/26/24 Unknown History mg-600 mg tablet extended hr (Mucinex DM) insulin glargine 100 unit/mL (3 18 unit subcut QAM 01/26/24 Unknown History mL) subcutaneous pen (Lantus Solostar U-100 Insulin) nutritional supplements 1 ea PO BID wound healing 01/26/24 Unknown History polyethylene glycol See Rx Instructions .Route QDAY 01/26/24 Unknown History sennosides 8.6 mg-docusate sodium 1 tab-cap PO BID PRN 01/26/24 Unknown History 50 mg capsule (Senna Plus) Allergy/AdvReac Type Severity Reaction Status Date / Time meloxicam (From Mobic) Allergy Intermediate itching Verified 01/26/24 14:25 pravastatin (From Pravachol) AdvReac Mild myalgia Verified 01/26/24 14:25 cholestyramine AdvReac hypoglycemi Verified 01/26/24 14:25 a Family History Mother Hypertension Cancer Father Heart disease Diabetes Surgical History Status post hip hemiarthroplasty History of prostate surgery H/O transurethral resection of prostate (01/12/23) Hx of cystoscopy Hx of total knee arthroplasty History of hydrocelectomy History of cataract surgery History of lumbar laminectomy History of herniorrhaphy History of stent insertion of renal artery (08/05/21) Social History household members: spouse and other details: Abigail is his 's name housing: house number of children: 2 current occupational status: retired and other details: worked for [employer] prior to retiring leisure activities: other Smoking Status: Never smoker Electronic Cigarette Use: not used second hand exposure: No alcohol intake: former substance use type: does not use what type of physical activity do you participate in: walking frequency: 1-2 times per week inés/orthodox: None seatbelt use: always ROS Constitutional Constitutional: Denies fever(s), frequent falls or headache(s) Eyes Eyes: Denies change in eye color, change in vision or floaters ENT HEENT: Denies ear discharge, mouth pain or mucositis Cardiovascular Cardiovascular: Denies bluish discoloration of hand/feet, chest pain or dyspnea on exertion Respiratory/Chest Respiratory/Chest: Denies difficulty clearing secretions, dyspnea or non-rest sleep EDS Gastrointestinal Gastrointestinal: Denies chewing difficulty, coffee ground emesis or hematochezia Vital Signs Vital Signs Vital Signs: 01/31/24 09:10 Temperature 97.1 F L Temperature Source Temporal Pulse Rate 59 L Respiratory Rate 14 Blood Pressure 141/85 H Blood Pressure Mean 103 Blood Pressure Source Monitor Blood Pressure Position Semi-Fowlers Blood Pressure Location Left Arm Oxygen Delivery Method Room Air Weight Weight: 77.111 kg Body Mass Index (BMI) 23.0 Physical Exam Narrative Vascular: Dorsalis pedis posterior tibial pulses diminished bilateral lower extremity 1 L4. Some atrophic skin changes noted to bilateral feet with skin thinning and shiny taut appearance. Absent digital hair growth noted. Neurologic: Light touch protective sensation diminished to bilateral lower extremities. Dermatologic: Full-thickness ulceration noted to the plantar left heel with a mixed fibronecrotic base. Postdebridement wound demonstrated a 50-50 granular/necrotic base. No evidence of deep probing undermining or acute signs of infection noted today. 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 Patient uses bracing to left lower extremity via dropfoot assist brace. Debridement Note Debridement Note Post-Debridement Measurements and Additional Note: Post-Debridement Measurements/Treatment - Nurse 1 - General Ulcer Assessment Start: 01/31/24 09:09 Freq: Status: Active Protocol: NADJA.BETO Activity Type Activity Date Activity User E-sign Co-sign Detail Recorded Client Recorded Date Recorded By Document 01/31/24 09:10 ML [id number] 01/31/24 09:15 ML 01/31/24 09:10 - Today's Visit Information Type of service Initial Visit Arrival Mode Wheelchair Accompanied by Patient Identification Verified (Name & Yes ) Height and Weight Height 6 ft Weight 77.111 kg Weight in Pounds 170.0 lbs Weight Measurement Method Estimated by Patient Body Mass Index (BMI) 23.0 BMI Classification Normal BSA - [place]enton 1.99 Vital Signs Temperature (97.8 F-99.1 F) 97.1 F L Temperature Source Temporal Pulse Rate (60-100) 59 L Pulse Location Monitor Respiratory Rate (12-18) 14 Respiratory rate source Observation Oxygen Delivery Method Room Air Blood Pressure (90/60-120/80) 141/85 H Blood Pressure Mean 103 Source Monitor Position Semi-Fowlers Blood Pressure Location Left Arm History Since Last Visit- (Skip if this is Patient's initial visit) Have you changed medications since your No last visit? Any new allergies or adverse reactions No Had a fall/change in ADL's that may No increase risk of falls Signs or symptoms of abuse and/or No neglect since last visit Have you been in the hospital since your No last visit? Has dressing in place as prescribed Yes Has compression in place as prescribed N/A Has offloadiing in place as prescribed N/A Experienced any changes in pain level or No management Left Footwear Regular Shoe Right Footwear Regular Shoe Pain Scale: 0-10 Numeric Is Patient Pain Free? Yes WC - Nurse 1 - General Ulcer Measurement Start: 01/31/24 09:09 Freq: Status: Active Protocol: Activity Type Activity Date Activity User E-sign Co-sign Detail Recorded Client Recorded Date Recorded By Document 01/31/24 09:10 ML [id number] 01/31/24 09:15 ML 01/31/24 09:10 Wound Center Nurse 1 #1 LT HEEL -Current Size (cm) - Length 4 -Current Size (cm) - Width 3 -Current Size (cm) - Depth 0.3 -Total Square Cm 12 -Date of Last Picture (Recall this 01/31/24 field) -Exudate Amt Small -Exudate Type Serosanguineous -Wound Margin Distinct, Outline Attached -Granulation Amt Large (67-100%) -Granulation Quality [place] -Necrosis Amt Small (1-33%) -Necrotic Tissue Type Adherent Slough -Texture (Fauzia-wound Skin Appearance) Assessed -Moisture (Fauzia-wound Skin Appearance) Assessed, Maceration -Color (Fauzia-wound Skin Appearance) Assessed -Temperature (Fauzia-wound Skin No Abnormality Appearance) (Pt Warm) -Tenderness on Palpation (Fauzia-wound No Skin Appearance) -Ulcer Cleansing Rinsed/ Irrigated with Saline -Foul Odor after Cleansing No -Anesthetic Used 5% Lidocaine Gel WC - Nurse 2 - General Ulcer CM Notes Start: 01/31/24 09:09 Freq: Status: Active Protocol: Activity Type Activity Date Activity User E-sign Co-sign Detail Recorded Client Recorded Date Recorded By Document 01/31/24 09:25 LULÚ [id number] 01/31/24 09:27 LULÚ 01/31/24 09:25 Wound Center Nurse 2 -Time 09:25 -Correct Patient Yes -Correct Side, Site, Position Yes -Correct Procedure Yes -Procedure Performed Yes -Type of Procedure Debridement -Clinical Debridement Subcutaneous -Tissue Removed Subcutaneous -Post Debridement (cm) - Length 4.1 -Post Debridement (cm) - Width 3.0 -Post Debridement (cm) - Depth 0.3 -Total Square (Post) (cm) 12.30 -Area of Debridement (cm) - Length 4.1 -Area of Debridement (cm) - Width 3.0 -Total Square (Area) (cm) 12.30 -Tunneling No -Undermining/Tunneling No -Circular Undermining No -Wound/Ulcer Outcome Not Healed -Ulcer Cleansing Rinsed/ Irrigated with Saline -Foul Odor after Cleansing No -Bioengineered Tissue No -Bleeding Controlled with Pressure -Treatment Response Procedure Tolerated Well -Offloading No -Debridement - Subq, 1st 20sq cm Yes Pain Scale: 0-10 Numeric Is Patient Pain Free? Yes - Nurse 3 - General Ulcer D/C NN Start: 01/31/24 09:09 Freq: Status: Active Protocol: Activity Type Activity Date Activity User E-sign Co-sign Detail Recorded Client Recorded Date Recorded By Document 01/31/24 10:01 [id number] 01/31/24 10:02 EDMAR 01/31/24 10:01 Wound Care Center Nurse 3 #1 LT HEEL -Ulcer Cleansing betadine -Primary Dressing Applied Mepilex Border -Mepilex Border 1 Treatment Response Procedure Tolerated Well Pain Scale: 0-10 Numeric Is Patient Pain Free? Yes WC - Visit Discharge Discharge Condition Stable Ambulatory Status Wheelchair Transportation Private Auto Accompanied by Medication Reconcilliation completed & No provided to patient/care provider Clinical Summary of Care Provided Yes Notes: assisted per 1 nurse with gait belt Assessment/Plan Assessment/Plan (1) Diabetic polyneuropathy: 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 Patient is hospice care and DNR CCA. Patient reports his goal is to get wound healing and then return to ambulation. Patient reports he is not receiving therapy at the facility due to hospice care. Patient wishes to proceed with therapy and attempt to return to ambulation. Patient has left heel ulceration which is not infected and noted to be a Jonas class II. We have recommended Sanjeev for nutrient supplementation. This time we will plan for daily Betadine dressings with offloading the left heel wound wound and bed in supine position using either heel float or a Prevalon offloading boot. Patient to follow-up weekly will consider skin substitute grafting. (2) Non-pressure chronic ulcer of other part of left foot with fat layer exposed: CODE(S): L97.522 - Non-pressure chronic ulcer of other part of left foot with fat layer exposed
--- NOTE | 2024-01-31 14:21 | WC ---
PHOTO 01/31/24 LEFT HEEL
[2024-02-07 11:25] VITALS: BP 163/69; PULSE 55; RESP 18; TEMP 35.8; BMI 23.0
--- NOTE | 2024-02-07 11:50 | PCM.WC.PN ---
History of Present Illness Date of Service: 02/07/24 Progress of Wound: 83-year-old male seen for a left heel pressure ulceration. Patient suffered a hip fracture in early December which he is predominantly been nonweightbearing since that time of that injury. Patient did undergo hip surgery. Patient has recently been converted to DNR CCA is currently on hospice care. At current patient denies any fever chills nausea vomiting chest pain calf pain shortness of breath. Patient has been treating the wound site himself. Notes no signs of infection or pain. Patient has been offloading the heel to left lower extremity via heel float. No other complaints. 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 Objective Data Objective Data Vital Signs: Vital Signs Temp Pulse Resp BP O2 Del Method 96.5 F L 55 L 18 163/69 H Room Air 02/07/24 11:25 02/07/24 11:25 02/07/24 11:25 02/07/24 11:25 02/07/24 11:25 Oxygen Delivery Method Room Air Weight: 77.111 kg Body Mass Index (BMI) 23.0 Physical Exam Narrative Vascular: Dorsalis pedis posterior tibial pulses diminished bilateral lower extremity 1 L4. Some atrophic skin changes noted to bilateral feet with skin thinning and shiny taut appearance. Absent digital hair growth noted. Neurologic: Light touch protective sensation diminished to bilateral lower extremities. Dermatologic: Full-thickness ulceration noted to the plantar left heel with a mixed fibronecrotic base. Postdebridement wound demonstrated a 50-50 granular/necrotic base. No evidence of deep probing undermining or acute signs of infection noted today. 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 Patient uses bracing to left lower extremity via dropfoot assist brace. 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 ) Arrival Mode Wheelchair Wheelchair Accompanied by Patient Identification Verified (Name & Yes Yes ) Height and Weight Height 6 ft Weight 77.111 kg Weight in Pounds 170.0 lbs Weight Measurement Method Estimated by Patient Body Mass Index (BMI) 23.0 23.0 BMI Classification Normal Normal BSA - Benton 1.99 Vital Signs Temperature (97.8 F-99.1 F) 97.1 F L 96.5 F L Temperature Source Temporal Temporal Pulse Rate (60-100) 59 L 55 L Pulse Location Monitor Monitor Respiratory Rate (12-18) 14 18 Respiratory rate source Observation Observation Oxygen Delivery Method Room Air Room Air Blood Pressure (90/60-120/80) 141/85 H 163/69 H Blood Pressure Mean (mm Hg) 103 100 Source Monitor Monitor Position Semi-Fowlers Semi-Fowlers Blood Pressure Location Left Arm Right Forearm History Since Last Visit- (Skip if this is Patient's initial visit) Have you changed medications since your No No last visit? Any new allergies or adverse reactions No No Had a fall/change in ADL's that may No No increase risk of falls Signs or symptoms of abuse and/or No No neglect since last visit Have you been in the hospital since your No No last visit? Has dressing in place as prescribed Yes Yes Has compression in place as prescribed N/A Yes Has offloadiing in place as prescribed N/A N/A Experienced any changes in pain level or No No management Left Footwear Regular Shoe Regular Shoe Right Footwear Regular Shoe Regular Shoe Pain Scale: 0-10 Numeric Is Patient Pain Free? Yes No WC - Nurse 1 - General Ulcer Measurement Start: 01/31/24 09:09 Freq: Status: Active Protocol: Activity Type Activity Date Activity User E-sign Co-sign Detail Recorded Client Recorded Date Recorded By Document 01/31/24 09:10 ML [id number] 01/31/24 09:15 ML Document 02/07/24 11:25 KW [id number] 02/07/24 11:30 KW 01/31/24 02/07/24 09:10 11:25 Wound Center Nurse 1 #1 LT HEEL -Current Size (cm) - Length 4 1.5 -Current Size (cm) - Width 3 2.5 -Current Size (cm) - Depth 0.3 0.1 -Total Square Cm 12 3.75 -Date of Last Picture (Recall this 01/31/24 field) -Exudate Amt Small Small -Exudate Type Serosanguineous Serosanguineous -Wound Margin Distinct, Distinct, Outline Outline Attached Attached -Granulation Amt Large (67-100%) None Present (0 %) -Granulation Quality [place] -Necrosis Amt Small (1-33%) Large (67-100%) -Necrotic Tissue Type Adherent Slough Adherent Slough -Texture (Fauzia-wound Skin Appearance) Assessed Assessed -Moisture (Fauzia-wound Skin Appearance) Assessed, Assessed Maceration -Color (Fauzia-wound Skin Appearance) Assessed Assessed -Temperature (Fauzia-wound Skin No Abnormality No Abnormality Appearance) (Pt Warm) (Pt Warm) -Tenderness on Palpation (Fauzia-wound No No Skin Appearance) -Ulcer Cleansing Rinsed/ Rinsed/ Irrigated with Irrigated with Saline Saline -Foul Odor after Cleansing No No -Anesthetic Used 5% Lidocaine 5% Lidocaine Gel Gel WC - Nurse 2 - General Ulcer CM Notes Start: 01/31/24 09:09 Freq: Status: Active Protocol: Activity Type Activity Date Activity User E-sign Co-sign Detail Recorded Client Recorded Date Recorded By Document 01/31/24 09:25 JF [id number] 01/31/24 09:27 JF Document 02/07/24 11:40 JF [id number] 02/07/24 11:42 01/31/24 02/07/24 09:25 11:40 Wound Center Nurse 2 #1 LT HEEL -Time 09:25 11:40 -Correct Patient Yes Yes -Correct Side, Site, Position Yes Yes -Correct Procedure Yes Yes -Procedure Performed Yes Yes -Type of Procedure Debridement Debridement -Clinical Debridement Subcutaneous Subcutaneous -Tissue Removed Subcutaneous Subcutaneous -Post Debridement (cm) - Length 4.1 2.5 -Post Debridement (cm) - Width 3.0 1.0 -Post Debridement (cm) - Depth 0.3 0.2 -Total Square (Post) (cm) 12.30 2.50 -Area of Debridement (cm) - Length 4.1 2.5 -Area of Debridement (cm) - Width 3.0 1.0 -Total Square (Area) (cm) 12.30 2.50 -Tunneling No No -Undermining/Tunneling No No -Circular Undermining No No -Wound/Ulcer Outcome Not Healed Not Healed -Ulcer Cleansing Rinsed/ Rinsed/ Irrigated with Irrigated with Saline Saline -Foul Odor after Cleansing No No -Bioengineered Tissue No No -Bleeding Controlled with Pressure Pressure -Treatment Response Procedure Procedure Tolerated Well Tolerated Well -Offloading No No -Debridement - Subq, 1st 20sq cm Yes Yes Pain Scale: 0-10 Numeric Is Patient Pain Free? Yes Yes - Nurse 3 - General Ulcer D/C NN Start: 01/31/24 09:09 Freq: Status: Active Protocol: Activity Type Activity Date Activity User E-sign Co-sign Detail Recorded Client Recorded Date Recorded By Document 01/31/24 10:01 EDMAR [id number] 01/31/24 10:02 EDMAR 01/31/24 10:01 Wound Care Center Nurse 3 #1 LT HEEL -Ulcer Cleansing betadine -Primary Dressing Applied Mepilex Border -Mepilex Border 1 Treatment Response Procedure Tolerated Well Pain Scale: 0-10 Numeric Is Patient Pain Free? Yes WC - Visit Discharge Discharge Condition Stable Ambulatory Status Wheelchair Transportation Private Auto Accompanied by Medication Reconcilliation completed & No provided to patient/care provider Clinical Summary of Care Provided Yes Notes: assisted per 1 nurse with gait belt Assessment/Plan Assessment/Plan (1) Diabetic polyneuropathy: 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 Patient is hospice care and DNR CCA. Patient reports his goal is to get wound healing and then return to ambulation. Patient reports he is not receiving therapy at the facility due to hospice care. Patient wishes to proceed with therapy and attempt to return to ambulation. Patient has left heel ulceration which is not infected and noted to be a Jonas class II. We have recommended Sanjeev for nutrient supplementation. This time we will plan for daily Betadine dressings with offloading the left heel wound wound and bed in supine position using either heel float or a Prevalon offloading boot. Patient to follow-up weekly will consider skin substitute grafting. (2) Non-pressure chronic ulcer of other part of left foot with fat layer exposed: CODE(S): L97.522 - Non-pressure chronic ulcer of other part of left foot with fat layer exposed
== END 2024-02-11 23:59 | disposition home or self-care (01) ==
LOC: WC 11:30
PROVIDERS: PCP Internal Medicine; Referring Provider Podiatrist; Visit Provider Podiatrist
DX: E11.621 Type 2 diabetes mellitus with foot ulcer (principal); L97.522 Non-pressure chronic ulcer of other part of left foot with fat layer exposed; I69.354 Hemiplegia and hemiparesis following cerebral infarction affecting left non-dominant side; E11.42 Type 2 diabetes mellitus with diabetic polyneuropathy; Z79.4 Long term (current) use of insulin
CPT/HCPCS: 11042; 99214; G0463

== ENCOUNTER 2024-02-28 11:30 | Outpatient (RCR) | payer MEDICARE, SELFPAY ==
[2024-02-12 00:33] VITALS: BP 163/69; PULSE 55; RESP 18; TEMP 35.8; BMI 23.0
[2024-02-14 11:46] VITALS: BP 144/87; PULSE 50; RESP 18; TEMP 35.8; BMI 23.0
--- NOTE | 2024-02-14 12:03 | PCM.WC.PN ---
History of Present Illness Date of Service: 02/07/24 Progress of Wound: 83-year-old male seen for a left heel pressure ulceration. Patient suffered a hip fracture in early December which he is predominantly been nonweightbearing since that time of that injury. Patient did undergo hip surgery. Patient has recently been converted to DNR [facility] is currently on hospice care. At current patient denies any fever chills nausea vomiting chest pain calf pain shortness of breath. Patient has been treating the wound site himself. Notes no signs of infection or pain. Patient has been offloading the heel to left lower extremity via heel float. No other complaints. 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 Objective Data Objective Data Vital Signs: Vital Signs Temp Pulse Resp BP 96.4 F L 50 L 18 144/87 H 02/14/24 11:46 02/14/24 11:46 02/14/24 11:46 02/14/24 11:46 Weight: 77.111 kg Body Mass Index (BMI) 23.0 Physical Exam Narrative Vascular: Dorsalis pedis posterior tibial pulses diminished bilateral lower extremity 1 L4. Some atrophic skin changes noted to bilateral feet with skin thinning and shiny taut appearance. Absent digital hair growth noted. Neurologic: Light touch protective sensation diminished to bilateral lower extremities. Dermatologic: Full-thickness ulceration noted to the plantar left heel with a mixed fibronecrotic base. Postdebridement wound demonstrated a 50-50 granular/necrotic base. No evidence of deep probing undermining or acute signs of infection noted today. 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 Patient uses bracing to left lower extremity via dropfoot assist brace. Debridement Note Debridement Note Post-Debridement Measurements and Additional Note: Post-Debridement Measurements/Treatment NADJA - Nurse 1 - General Ulcer Assessment Start: 02/14/24 11:46 Freq: Status: Active Protocol: CARYN Activity Type Activity Date Activity User E-sign Co-sign Detail Recorded Client Recorded Date Recorded By Document 02/14/24 11:46 RB [id number] 02/14/24 11:53 RB 02/14/24 11:46 - Today's Visit Information Type of service Follow-up Visit (Physician/INSTRUCTOR INDUSTRIAL DESIGN ) Arrival Mode Wheelchair Transfer Assistance Manual Patient Identification Verified (Name & Yes ) Patient Requires Transmission-Based No Precautions Height and Weight Body Mass Index (BMI) 23.0 BMI Classification Normal Vital Signs Temperature (97.8 F-99.1 F) 96.4 F L Temperature Source Temporal Pulse Rate (60-100) 50 L Pulse Location Monitor Respiratory Rate (12-18) 18 Respiratory rate source Observation Blood Pressure (90/60-120/80) 144/87 H Blood Pressure Mean (mm Hg) 106 Source Monitor Position Semi-Fowlers Blood Pressure Location Left Arm History Since Last Visit- (Skip if this is Patient's initial visit) Have you changed medications since your No last visit? Any new allergies or adverse reactions No Had a fall/change in ADL's that may No increase risk of falls Signs or symptoms of abuse and/or No neglect since last visit Have you been in the hospital since your No last visit? Has dressing in place as prescribed Yes Has compression in place as prescribed No Has offloadiing in place as prescribed No Experienced any changes in pain level or No management Left Footwear Custom Shoe Right Footwear Custom Shoe Pain Scale: 0-10 Numeric Is Patient Pain Free? Yes WC - Nurse 1 - General Ulcer Measurement Start: 02/14/24 11:46 Freq: Status: Active Protocol: Activity Type Activity Date Activity User E-sign Co-sign Detail Recorded Client Recorded Date Recorded By Document 02/14/24 11:46 EDMAR [id number] 02/14/24 11:53 RB 02/14/24 11:46 Wound Center Nurse 1 #1 LT HEEL -Combined with other wound No -Current Size (cm) - Length 2.6 -Current Size (cm) - Width 1.1 -Current Size (cm) - Depth 0.1 -Total Square Cm 2.86 -Tunneling No -Undermining/Tunneling No -Circular Undermining No -Exudate Amt Medium -Exudate Type Serosanguineous -Wound Margin Distinct, Outline Attached -Granulation Amt Medium (34-66%) -Granulation Quality [place] -Slough/Fibrin Yes -Necrosis Amt Medium (34-66%) -Necrotic Tissue Type Adherent Slough -Structure Exposed N/A -Texture (Fauzia-wound Skin Appearance) Assessed,Callus -Moisture (Fauzia-wound Skin Appearance) Assessed -Color (Fauzia-wound Skin Appearance) Assessed -Temperature (Fauzia-wound Skin No Abnormality Appearance) (Pt Warm) -Tenderness on Palpation (Fauzia-wound No Skin Appearance) -Ulcer Cleansing Wound Cleanser -Foul Odor after Cleansing No -Anesthetic Used 5% Lidocaine Gel Assessment/Plan Assessment/Plan (1) Diabetic polyneuropathy: 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 Patient is hospice care and DNR [facility]. Patient reports his goal is to get wound healing and then return to ambulation. Patient reports he is not receiving therapy at the facility due to hospice care. Patient wishes to proceed with therapy and attempt to return to ambulation. Patient has left heel ulceration which is not infected and noted to be a Jonas class II. Excisional debridement to heel wound performed using a #5mm dermal curette of all non-vaible tissue down to and including subcutaneous tissue. hemostasis obtained with light compression. topical anesthesia use. patient tolerated procedure well. pre and post debridment measurements documented in nursing notes. We have recommended Sanjeev for nutrient supplementation. This time we will plan for daily Betadine dressings with offloading the left heel wound wound and bed in supine position using either heel float or a Prevalon offloading boot. Patient to follow-up weekly will consider skin substitute grafting. (2) Non-pressure chronic ulcer of other part of left foot with fat layer exposed: CODE(S): L97.522 - Non-pressure chronic ulcer of other part of left foot with fat layer exposed
[2024-02-28 11:52] VITALS: BP 137/65; PULSE 79; RESP 18; TEMP 37.6; BMI 23.0
--- NOTE | 2024-02-28 12:06 | PN.PCM_ITS ---
History of Present Illness Date of Service: 02/28/24 Progress of Wound: 83-year-old male seen for a left heel pressure ulceration. Patient suffered a hip fracture in early December which he is predominantly been nonweightbearing since that time of that injury. Patient did undergo hip surgery. Patient has recently been converted to DNR [facility] is currently on hospice care. At current patient denies any fever chills nausea vomiting chest pain calf pain shortness of breath. Patient has been treating the wound site himself. Notes no signs of infection or pain. Patient has been offloading the heel to left lower extremity via heel float. No other complaints. 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 Objective Data Objective Data Vital Signs: Vital Signs Temp Pulse Resp BP O2 Del Method 99.7 F H 79 18 137/65 H Room Air 02/28/24 11:52 02/28/24 11:52 02/28/24 11:52 02/28/24 11:52 02/28/24 11:52 Oxygen Delivery Method Room Air Weight: 77.111 kg Body Mass Index (BMI) 23.0 Physical Exam Narrative Vascular: Dorsalis pedis posterior tibial pulses diminished bilateral lower extremity 1 L4. Some atrophic skin changes noted to bilateral feet with skin thinning and shiny taut appearance. Absent digital hair growth noted. Neurologic: Light touch protective sensation diminished to bilateral lower extremities. Dermatologic: Full-thickness ulceration noted to the plantar left heel with a mixed fibronecrotic base. Postdebridement wound demonstrated a 50-50 granular/necrotic base. No evidence of deep probing undermining or acute signs of infection noted today. 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 Patient uses bracing to left lower extremity via dropfoot assist brace. Debridement Note Debridement Note Post-Debridement Measurements and Additional Note: Post-Debridement Measurements/Treatment WC - Nurse 1 - General Ulcer Assessment Start: 02/14/24 11:46 Freq: Status: Active Protocol: NADJA.LOWEXT Activity Type Activity Date Activity User E-sign Co-sign Detail Recorded Client Recorded Date Recorded By Document 02/14/24 11:46 RB [id number] 02/14/24 11:53 RB Document 02/28/24 11:52 DS [id number] 02/28/24 11:57 DS 02/14/24 02/28/24 11:46 11:52 - Today's Visit Information Type of service Follow-up Visit (Physician/MERCHANDISE EXAMINER ) Arrival Mode Wheelchair Transfer Assistance Manual Patient Identification Verified (Name & Yes ) Patient Requires Transmission-Based No Precautions Height and Weight Body Mass Index (BMI) 23.0 23.0 BMI Classification Normal Normal Vital Signs Temperature (97.8 F-99.1 F) 96.4 F L 99.7 F H Temperature Source Temporal Temporal Pulse Rate (60-100) 50 L 79 Pulse Location Monitor Monitor Respiratory Rate (12-18) 18 18 Respiratory rate source Observation Observation Oxygen Delivery Method Room Air Blood Pressure (90/60-120/80) 144/87 H 137/65 H Blood Pressure Mean (mm Hg) 106 89 Source Monitor Monitor Position Semi-Fowlers Semi-Fowlers Blood Pressure Location Left Arm Right Arm History Since Last Visit- (Skip if this is Patient's initial visit) Have you changed medications since your No last visit? Any new allergies or adverse reactions No Had a fall/change in ADL's that may No increase risk of falls Signs or symptoms of abuse and/or No neglect since last visit Have you been in the hospital since your No last visit? Has dressing in place as prescribed Yes Has compression in place as prescribed No Has offloadiing in place as prescribed No Experienced any changes in pain level or No management Left Footwear Custom Shoe Regular Shoe Right Footwear Custom Shoe Surgical Shoe with pressure relief insole Pain Scale: 0-10 Numeric Is Patient Pain Free? Yes Yes - Nurse 1 - General Ulcer Measurement Start: 02/14/24 11:46 Freq: Status: Active Protocol: Activity Type Activity Date Activity User E-sign Co-sign Detail Recorded Client Recorded Date Recorded By Document 02/14/24 11:46 RB [id number] 02/14/24 11:53 RB Document 02/28/24 11:59 DS [id number] 02/28/24 12:00 DS 02/14/24 02/28/24 11:46 11:59 Wound Center Nurse 1 #2 right ankle -Current Size (cm) - Length 0.1 -Current Size (cm) - Width 0.1 -Current Size (cm) - Depth 0.1 -Total Square Cm 0.01 -Photo Taken No -Tunneling No -Undermining/Tunneling No -Circular Undermining No -Texture (Fauzia-wound Skin Appearance) Assessed -Moisture (Fauzia-wound Skin Appearance) Assessed -Color (Fauzia-wound Skin Appearance) Assessed -Ulcer Cleansing Soap and Water -Foul Odor after Cleansing No #1 LT HEEL -Combined with other wound No -Current Size (cm) - Length 2.6 1.1 -Current Size (cm) - Width 1.1 2.4 -Current Size (cm) - Depth 0.1 0.5 -Total Square Cm 2.86 2.64 -Photo Taken No -Tunneling No No -Undermining/Tunneling No No -Circular Undermining No No -Exudate Amt Medium Medium -Exudate Type Serosanguineous Serosanguineous -Wound Margin Distinct, Distinct, Outline Outline Attached Attached -Granulation Amt Medium (34-66%) Small (1-33%) -Granulation Quality [place] -Slough/Fibrin Yes -Necrosis Amt Medium (34-66%) Medium (34-66%) -Necrotic Tissue Type Adherent Slough Adherent Slough -Structure Exposed N/A -Texture (Fauzia-wound Skin Appearance) Assessed,Callus Assessed -Moisture (Fauzia-wound Skin Appearance) Assessed Assessed -Color (Fauzia-wound Skin Appearance) Assessed Assessed -Temperature (Fauzia-wound Skin No Abnormality No Abnormality Appearance) (Pt Warm) (Pt Warm) -Tenderness on Palpation (Fauzia-wound No No Skin Appearance) -Ulcer Cleansing Wound Cleanser Soap and Water -Foul Odor after Cleansing No No -Anesthetic Used 5% Lidocaine 5% Lidocaine Gel Gel WC - Nurse 2 - General Ulcer CM Notes Start: 02/14/24 11:46 Freq: Status: Active Protocol: Activity Type Activity Date Activity User E-sign Co-sign Detail Recorded Client Recorded Date Recorded By Document 02/14/24 12:07 JF [id number] 02/14/24 12:11 Document 02/28/24 12:01 JF [id number] 02/28/24 12:04 02/14/24 02/28/24 12:07 12:01 Wound Center Nurse 2 #2 right ankle -Time 12:04 #1 LT HEEL -Time 12:08 12:02 -Correct Patient Yes Yes -Correct Side, Site, Position Yes Yes -Correct Procedure Yes Yes -Procedure Performed Yes Yes -Type of Procedure Debridement Debridement -Clinical Debridement Subcutaneous Subcutaneous -Tissue Removed Subcutaneous Subcutaneous -Post Debridement (cm) - Length 1.3 1.0 -Post Debridement (cm) - Width 2.7 2.5 -Post Debridement (cm) - Depth 0.2 0.2 -Total Square (Post) (cm) 3.51 2.50 -Area of Debridement (cm) - Length 1.3 1.0 -Area of Debridement (cm) - Width 2.7 2.5 -Total Square (Area) (cm) 3.51 2.50 -Tunneling No No -Undermining/Tunneling No No -Circular Undermining No No -Wound/Ulcer Outcome Not Healed Not Healed -Ulcer Cleansing Rinsed/ Rinsed/ Irrigated with Irrigated with Saline Saline -Foul Odor after Cleansing No No -Bioengineered Tissue No No -Bleeding Controlled with Pressure Pressure -Treatment Response Procedure Procedure Tolerated Well Tolerated Well -Offloading No No -Debridement - Subq, 1st 20sq cm Yes Yes Pain Scale: 0-10 Numeric Is Patient Pain Free? Yes Yes - Nurse 3 - General Ulcer D/C NN Start: 02/14/24 11:46 Freq: Status: Active Protocol: Activity Type Activity Date Activity User E-sign Co-sign Detail Recorded Client Recorded Date Recorded By Document 02/14/24 12:23 KW [id number] 02/14/24 12:40 KW 02/14/24 12:23 Wound Care Center Nurse 3 #1 LT HEEL -Primary Dressing Applied Promogran Corina Matter -Primary Dressing Covered/Secured with Dry Gauze & Roll Gauze, Secured with Tape -Promogran [place] Matter 1 Pain Scale: 0-10 Numeric Is Patient Pain Free? 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 Patient is hospice care and DNR CCA. Patient reports his goal is to get wound healing and then return to ambulation. Patient reports he is not receiving therapy at the facility due to hospice care. Patient wishes to proceed with therapy and attempt to return to ambulation. Patient has left heel ulceration which is not infected and noted to be a Jonas class II. Excisional debridement to heel wound performed using a #5mm dermal curette of all non-vaible tissue down to and including subcutaneous tissue. hemostasis obtained with light compression. topical anesthesia use. patient tolerated p rocedure well. pre and post debridement measurements documented in nursing notes. We have recommended Sanjeev for nutrient supplementation. This time we will plan for daily Betadine dressings with offloading the left heel wound wound and bed in supine position using either heel float or a Prevalon offloading boot. Patient to follow-up weekly will consider skin substitute grafting. (2) Non-pressure chronic ulcer of other part of left foot with fat layer exposed: CODE(S): L97.522 - Non-pressure chronic ulcer of other part of left foot with fat layer exposed
--- NOTE | 2024-02-28 15:37 | WC ---
Left a voice message with Abigail, the of patient letting her know that Daniel delivered Francisco's dressings on 02/24/24 in the afternoon and that one of the nurses might have the supplies and to follow up on this so she has the supplies she needs.
== END 2024-03-13 23:59 | disposition home or self-care (01) ==
LOC: WC 11:30
PROVIDERS: PCP Internal Medicine; Referring Provider Podiatrist; Visit Provider Podiatrist
DX: E11.622 Type 2 diabetes mellitus with other skin ulcer (principal); L97.522 Non-pressure chronic ulcer of other part of left foot with fat layer exposed; I69.854 Hemiplegia and hemiparesis following other cerebrovascular disease affecting left non-dominant side; E11.42 Type 2 diabetes mellitus with diabetic polyneuropathy; M21.372 Foot drop, left foot
CPT/HCPCS: 11042

== ENCOUNTER 2024-03-04 20:39 | Inpatient (IN) | payer MEDICARE, SELFPAY ==
[2024-03-04 20:40] VITALS: BP 160/55; PULSE 68; RESP 16; TEMP 36.9; O2SAT 94; BMI 24.8
--- NOTE | 2024-03-04 20:51 | EKG12_ITS ---
Test Reason : SOB Blood Pressure : */* mmHG Vent. Rate : 67 BPM Atrial Rate : 67 BPM P-R Int : 164 ms QRS Dur : 94 ms QT Int : 382 ms P-R-T Axes : 51 72 50 degrees QTcB Int : 403 ms Normal sinus rhythm Possible Left atrial enlargement Nonspecific T wave abnormality Abnormal ECG Confirmed by LOGAN STRONG, DWAYNE ([id number]), editor department ARMAND DUKE ([id number]) on 03/05/2024 8:26:45 AM Referred By: CHARLENE Confirmed By: DWAYNE FORD MD
--- NOTE | 2024-03-04 20:52 | RAD_ITS ---
STUDY: XR Chest 1 View 03/04/2024 8:52 PM REASON FOR EXAM: Male, 83 years old. cough COMPARISON: 5.17.24 TECHNIQUE: XR Chest 1 View FINDINGS: There is no demonstrated pleural abnormality. There is an elevated right hemidiaphragm. Normal heart size. Normal mediastinum. Normal arianne. Prominent appearing increased interstitial lung markings. Normal visualized pulmonary arteries. There is atherosclerotic calcification of the aortic arch with tortuosity. There are diffuse degenerative changes of the visualized thoracic spine. There is degenerative osteoarthritis of the bilateral shoulders. There are no acute findings of the upper abdomen. RAD/Chest 1 View (Portable) IMPRESSION: There are no acute findings. Electronically Signed: Alphonse Leggett MD at 21:22 EST ,
[2024-03-04 20:54] VITALS: O2SAT 92
--- NOTE | 2024-03-04 20:56 | EDS_ITS ---
HPI <YAN Beth - Last Filed: 03/04/24 21:56> History of Present Illness Chief Complaint: General Illness Narrative Narrative: Patient is an 83-year-old male with history of type 2 diabetes history of stroke with left hemiparesis, iron deficient anemia, hyperlipidemia who lives with his at assisted living. Patient states that he was diagnosed with COVID-19 7 days ago, patient is having worsening cough, worsening weakness and is here for evaluation. Patient does live with his who is also ill however she is improving. Denies any fever chills nausea or vomiting. PFSH <YAN Beth - Last Filed: 03/04/24 21:56> [facility] Medical History Diabetes mellitus, type 2 Osteoarthritis Uncontrolled hypertension Closed displaced fracture of left femoral neck History of CHF (congestive heart failure) Obstructive sleep apnea Neuropathic pain Physical debility Fall Current use of insulin Back pain due to injury Restless legs Syncope Kidney stones PAF (paroxysmal atrial fibrillation) CHF (congestive heart failure) Anemia Weakness Wears glasses Depression Rash Insulin dependent diabetes mellitus Walker as ambulation aid Prostate disease Low iron Restless legs Stroke/cerebrovascular accident Dietary restriction Non-smoker BiPAP (biphasic positive airway pressure) dependence History of edema History of echocardiogram Cardiology follow-up encounter BPH (benign prostatic hyperplasia) Congestive heart failure Pneumonia Incontinence Limb weakness Unsteadiness Chronic anemia Hypertension Coronary artery disease Right renal artery stenosis Fatigue Ventricular tachycardia seen on monitor technician (02/20/21) Peripheral vascular occlusive disease Type 2 diabetes mellitus Hyperlipidemia Essential hypertension History of CVA (cerebrovascular accident) (12/2020) Obstructive Sleep Apnea-Hypopnea Syndrome Absent pedal pulses Skin lesion of face Normocytic normochromic anemia Depression Dysphagia Proteinuria due to type 2 diabetes mellitus Facial droop due to acute stroke Acute left-sided muscle weakness Osteoarthritis Right pontine CVA Recurrent inguinal hernia of right side without obstruction or gangrene Home Medications ?Medication ?Instructions ?Recorded ?Last Taken ?Type Handicap Placard #1 ea 02/12/21 Unknown Rx latanoprost 0.005 % eye drops 1 drp EACH EYE .COMPLEX eyes 02/24/22 12/14/23 History pen needle, diabetic 32 gauge x #50 ea 06/17/22 Unknown Rx (BD Sanaz 2nd Gen Pen Needle) sertraline 50 mg tablet 50 mg PO QHS mood #90 tabs 02/23/23 12/14/23 Rx gabapentin 100 mg capsule 100 mg PO BID pain #180 caps 05/04/23 12/15/23 Rx gabapentin 300 mg capsule 300 mg PO 2100 pain #90 caps 05/04/23 12/14/23 Rx potassium chloride 20 mEq 20 meq PO DAILYCM supplement 30 08/01/23 12/14/23 Rx tablet,extended release(part/cryst) days #30 tabs clopidogrel 75 mg tablet (Plavix) 75 mg PO DAILY blood thinner #90 08/12/23 12/15/23 Rx tabs amiodarone 200 mg tablet 100 mg (1/2 x 200 mg) PO DAILY BP 08/16/23 Unknown Rx #45 tabs furosemide 40 mg tablet 40 mg PO DAILY Fluid retention #90 08/22/23 12/14/23 Rx TABLETS hydralazine 100 mg tablet 100 mg PO TID BP #270 tabs 09/22/23 12/15/23 Rx oxybutynin chloride 15 mg 15 mg PO DAILY bladder 10/28/23 12/15/23 History tablet,extended release 24 hr pramipexole 0.125 mg tablet 0.125 mg PO QHS parkinsons #90 tabs 11/08/23 12/14/23 Rx acetaminophen 500 mg tablet 1,000 mg (2 x 500 mg) PO Q8 #0 tabs 01/09/24 Unknown Rx cyanocobalamin (vitamin B-12) 1,000 mcg IM QMONTH #0 mL 01/09/24 Unknown Rx 1,000 mcg/mL injection solution bisacodyl 10 mg rectal suppository 10 mg WI QDAY PRN constipation 01/26/24 Unk nown History dextromethorphan-guaifenesin 30 1 tab PO Q12H 01/26/24 Unknown History mg-600 mg tablet extended [id number] hr (Mucinex DM) nutritional supplements 1 ea PO BID wound healing 01/26/24 Unknown History polyethylene glycol See Rx Instructions .Route QDAY 01/26/24 Unknown History sennosides 8.6 mg-docusate sodium 1 tab-cap PO BID PRN constipation 01/26/24 Unknown History 50 mg capsule (Senna Plus) amlodipine 10 mg tablet 10 mg PO DAILY #90 tabs 02/14/24 Unknown Rx insulin glargine 100 unit/mL (3 18 unit (0.18 mL) subcut QAM #15 mL 02/15/24 Unknown Rx mL) subcutaneous pen (Lantus Solostar U-100 Insulin) doxazosin 4 mg tablet 4 mg PO QHS Urinary Retention #90 02/27/24 Unknown Rx tabs Allergy/AdvReac Type Severity Reaction Status Date / Time meloxicam (From Mobic) Allergy Intermediate itching Verified 03/04/24 20:44 pravastatin (From Pravachol) AdvReac Mild myalgia Verified 03/04/24 20:44 cholestyramine AdvReac hypoglycemi Verified 03/04/24 20:44 a Family History Mother Hypertension Cancer Father Heart disease Diabetes Surgical History Status post hip hemiarthroplasty History of prostate surgery H/O transurethral resection of prostate (01/12/23) Hx of cystoscopy Hx of total knee arthroplasty History of hydrocelectomy History of cataract surgery History of lumbar laminectomy History of herniorrhaphy History of stent insertion of renal artery (08/05/21) Social History household members: spouse and other details: Abigail is his 's name housing: house number of children: 2 current occupational status: retired and other details: worked for [employer] prior to retiring leisure activities: other Smoking Status: Never smoker Electronic Cigarette Use: not used second hand exposure: No alcohol intake: former substance use type: does not use what type of physical activity do you participate in: walking frequency: 1-2 times per week inés/zoroastrian: None seatbelt use: always ROS <YAN Beth - Last Filed: 03/04/24 21:56> ROS ED ROS Narrative Constitutional: Negative for fever, chills, weight loss. Positive for generalized weakness Eyes: Negative for vision loss, vision change, double vision ENT: Negative for any sore throat, ear pain, congestion Cardiovascular: Negative for any chest pain, tightness, palpitations Respiratory: Negative for any sputum production, hemoptysis, orthopnea. Positive for cough, dyspnea on exertion Gastrointestinal: Negative for any abdominal pain, nausea, vomiting, diarrhea, constipation, blood in stool, blood in vomit : Negative for any urinary frequency, dysuria, retention, blood in urine Muscle skeletal: Negative for any neck pain, back pain Neurological: Negative for any headache, syncope, dizziness Skin: Negative for any rashes, itching, abrasions, lacerations Psychiatric: Negative for any depression, anxiety, stress, suicidal ideation, homicidal ideation Hematologic: Negative for any excessive bruising, easy bleeding EXAM <YAN Beth - Last Filed: 03/04/24 21:56> Physical Exam Narrative Exam Narrative: Vital signs reviewed. Patient is alert and oriented however patient does have a harsh cough and has difficulty speaking secondary to coughing. HEET: Head normocephalic atraumatic, TMs clear bilaterally. Posterior pharynx is clear, dry mucous membranes. Nares clear bilaterally. Neck: Supple with no lymphadenopathy or tenderness. No signs of meningismus. Cardiac: Regular rate and rhythm no murmurs gallops or rubs, equal peripheral pulses bilaterally. Respiratory: Rhonchorous breath sounds throughout pulmonary exam. No chest tenderness. Abdomen: Soft, nontender, nondistended. No abdominal bruit or pulsatile masses. No hepatosplenomegaly Extremities: No peripheral edema, no signs of gross trauma or deformity. Weakness to the left upper extremity secondary to stroke Neuro: Cranial nerves II through XII intact, no focal neurological deficits. Skin: Clean dry and intact with no rash, purpura, petechiae, vesicles or pustules. Backs/flank: No CVA tenderness, no midline spinal tenderness, no deformity. Psych: Normal mood and affect. No SI, HI or acute psychosis. Const Vital Signs: 03/04/24 20:40 03/04/24 20:44 03/04/24 20:54 Temperature 98.4 F Temperature Source Oral Pulse Rate 68 Respiratory Rate 16 Respiratory Effort Normal Non-Labored Respiratory Pattern Normal Blood Pressure 160/55 H Blood Pressure Mean 90 Pulse Ox 94 92 Oxygen Delivery Method Room Air Room Air 03/04/24 21:29 03/04/24 22:16 03/04/24 22:39 Temperature Temperature Source Pulse Rate 70 77 Respiratory Rate 16 12 Respiratory Effort Respiratory Pattern Normal Normal Blood Pressure 128/48 H Blood Pressure Mean 74 Pulse Ox 93 Oxygen Delivery Method Room Air <Dr. Yaakov Cuevas, DO - Last Filed: 03/04/24 23:55> Physical Exam Const Vital Signs: 03/04/24 20:40 03/04/24 20:44 03/04/24 20:54 Temperature 98.4 F Temperature Source Oral Pulse Rate 68 Respiratory Rate 16 Respiratory Effort Normal Non-Labored Respiratory Pattern Normal Blood Pressure 160/55 H Blood Pressure Mean 90 Pulse Ox 94 92 Oxygen Delivery Method Room Air Room Air 03/04/24 21:29 03/04/24 22:16 03/04/24 22:39 Temperature Temperature Source Pulse Rate 70 77 Respiratory Rate 16 12 Respiratory Effort Respiratory Pattern Normal Normal Blood Pressure 128/48 H Blood Pressure Mean 74 Pulse Ox 93 Oxygen Delivery Method Room Air MDM <YAN Beth - Last Filed: 03/04/24 21:56> MDM Lab Data Labs: Laboratory Results - last 24 hr 03/04/24 03/04/24 20:50 21:30 WBC 8.5 RBC 3.78 L Hgb 11.2 L Hct 34.8 L MCV 92.1 MCH 29.6 MCHC 32.2 RDW Std Deviation 46.4 H RDW Coeff of Cait 13.7 Plt Count 213 MPV 11.7 Immature Gran % (Auto) 1.200 H Neut % (Auto) 75.7 H Lymph % (Auto) 11.0 L Harnett % (Auto) 9.1 Eos % (Auto) 2.6 Baso % (Auto) 0.4 Absolute Neuts (auto) 6.5 Absolute Lymphs (auto) 0.94 Nucleated RBC % 0 Sodium 133 L Potassium 3.3 L Chloride 94 L Carbon Dioxide 31.0 Anion Gap 8 BUN 71 H Creatinine 2.07 H Estim Creat Clear Calc 29.16 Est GFR (MDRD) Af Amer 40 L Est GFR (MDRD) Non-Af 33 L BUN/Creatinine Ratio 34.3 H Glucose 488 H* Calcium 9.2 B-Natriuretic Peptide 138.8 H Acetone Level NEGATIVE Radiography Diagnostic Testing: Clinical Impression(s) from Imaging Studies Chest X-Ray 03/04/24 20:52 IMPRESSION: There are no acute findings. Electronically Signed: Alphonse Leggett MD at 21:22 EST Reading Location ID and State: [facility] / [place] , Service support , Treatment and Re-Evaluation :: Differential diagnosis includes however is not limited to: COVID-19 pneumonia, hypoxia, pleural effusions, fluid overload, Patient appears generally well, vital signs are stable, patient is nontoxic- appearing. [facility] for complaints of worsening cough, shortness of breath post COVID-19 infection 7 days ago. Patient will receive some basic laboratory values, chest x-ray, breathing treatments. Patient will be placed on the monitor, all radiologic examinations were read, reviewed by the emergency department attending. From these reads, a plan of care will be put in place. Patient's chest x-ray interpreted the ER physician shows no acute process. Laboratory values showed no leukocytosis, stable anemia. Patient's chemistries show potassium 3.3, creatinine is 2.07, patient is usually between 1.5 and 1.8. Patient's glucose of 1 urine 88, BNP slightly elevated 138. <Dr. Yaakov Cuevas, DO - Last Filed: 03/04/24 23:55> [facility] MDM Narrative Medical decision making narrative: Supervisory Physician Note Patient was seen and examined with the Advanced Practice Provider. Nursing notes and vital signs have been reviewed. Pertinent old records have been reviewed. I agree with the essential elements of the CONSUELO's history, physical exam, assessment, and plan. The differential diagnosis and management options were discussed with the CONSUELO. I participated in determining and agree with the management, procedures, final impression and disposition as documented. See changes noted by me. Please see addendum or separate note for any additional details. 83-year-old male with history of DM2, CVA with left hemiparesis, chronic anemia presents for evaluation of cough and generalized weakness. patient resides at an assisted living facility. He is having difficulty ambulating at the house. Patient was diagnosed with COVID-19 on Tuesday. states that the patient has been having worsening cough. Denies any fever, chills, chest pain, abdominal pain, nausea, vomiting. Gen: A&O x3 Head: Normocephalic, atraumatic Eyes: No sclera icterus, conjunctiva clear ENT: Mildly dry mucous membranes Neck: Trachea midline, No JVD, no meningismus CV: RRR, no murmurs, no peripheral edema Resp: Lungs coarse bilaterally, + diffuse wheezing GI: Abd soft, non-distended, non-tender, no r/r/g Musc: Left hemiparesis- patient's baseline, no deformity Skin: Warm, dry Neuro: Alert, oriented, grossly intact, sensation intact Psych: Cooperative, appropriate mood and affect EKG: Interpreted by me/EM physician: EKG shows normal sinus rhythm with nonspecific ST changes. Heart rate 67 Diagnostic: Interpreted by me/EM physician: Chest x-ray without pneumonia, effusion, cardiomegaly, pneumothorax Patient presents for cough and generalized weakness with known COVID-19 infection. His vitals are stable other than mild hypertension. No hypoxia. Respiratory workup ordered. Patient ordered DuoNebs x 3 for wheezing. NS bolus ordered. EKG and chest x-ray reviewed. CBC without leukocytosis. Patient has baseline anemia. BMP shows mild dehydration. Patient is at his baseline renal insufficiency. Patient has hyperglycemia of 488. He states he took his Lantus prior to arrival. Will recheck glucose given he just took his Lantus. Acetone level negative without gap. Patient not in DKA. BNP mildly elevated at 138. This is lower than previous labs. At this point in time, I suspect patient's symptoms are likely secondary to his known COVID-19 infection. We did not repeat COVID testing. Patient has not required oxygen. After updating patient and of all laboratory results and workup patient is unable to discharge back to assisted living as he cannot ambulate around and cannot take care of of the patient. Patient is agreement for admission for observation with PT OT and possible acute care rehab placement. Patient was discussed with the hospitalist service and was accepted. Impression: 1. COVID-19 infection 2. Generalized weakness 3. Mild dehydration 4. Hyperglycemia with known type 2 diabetes Lab Data Labs: Laboratory Results - last 24 hr 03/04/24 03/04/24 20:50 21:30 WBC 8.5 RBC 3.78 L Hgb 11.2 L Hct 34.8 L MCV 92.1 MCH 29.6 MCHC 32.2 RDW Std Deviation 46.4 H RDW Coeff of Cait 13.7 Plt Count 213 MPV 11.7 Immature Gran % (Auto) 1.200 H Neut % (Auto) 75.7 H Lymph % (Auto) 11.0 L Harnett % (Auto) 9.1 Eos % (Auto) 2.6 Baso % (Auto) 0.4 Absolute Neuts (auto) 6.5 Absolute Lymphs (auto) 0.94 Nucleated RBC % 0 Sodium 133 L Potassium 3.3 L Chloride 94 L Carbon Dioxide 31.0 Anion Gap 8 BUN 71 H Creatinine 2.07 H Estim Creat Clear Calc 29.16 Est GFR (MDRD) Af Amer 40 L Est GFR (MDRD) Non-Af 33 L BUN/Creatinine Ratio 34.3 H Glucose 488 H* Calcium 9.2 B-Natriuretic Peptide 138.8 H Acetone Level NEGATIVE Radiography Diagnostic Testing: Clinical Impression(s) from Imaging Studies Chest X-Ray 03/04/24 20:52 IMPRESSION: There are no acute findings. Electronically Signed: Alphonse Leggett MD at 21:22 EST Reading Location ID and State: [facility] / [place] , Service support , Discharge Plan Triage Chief Complaint: General Illness Other Complaint: Hyperglycemia ED Midlevel Provider: Angel Reynaga ED Provider: Yaakov Cuevas Dx/Rx/DC Orders Primary Care Provider: Jennifer Watt
[2024-03-04 21:06] LABS: Absolute Lymphocyte Count 0.94 X10^3/uL (0.83-4.51); Absolute Neutrophil Count 6.5 X10^3/uL (2.0-7.7); Basophil# 0.03 X10^3/uL; Basophil% 0.4 % (0-1); Eosinophil# 0.22 X10^3/uL; Eosinophils% 2.6 % (0-5); Hematocrit 34.8 % (40-54); Hemoglobin 11.2 g/dL (13.0-16.5); Lymphocyte # 0.94 X10^3/ul (0.83-4.51); Mean Corp Hgb Conc 32.2 g/dL (32-36); Mean Corpuscular Hgb 29.6 pg (27.0-32.0); Mean Corpuscular Volume 92.1 fL (80-94); Mean Platelet Vol. 11.7 fl (6.2-12.0); Monocyte# 0.78 X10^3/uL; Monocyte% 9.1 % (0-10); NRBC Flagged by Analyzer 0 % (0-5); Neutrophil # 6.46 X10^3/uL (2.7-7.7); Neutrophil % 75.7 % (47-70); Platelet Count 213 K/mm3 (150-450); RBC Distribution Width CV 13.7 % (11.6-14.6); RBC Distribution Width SD 46.4 fl (35.1-43.9); Red Blood Count 3.78 M/mm3 (4.6-6.2); White Blood Count 8.5 K/mm3 (4.4-11.0)
[2024-03-04 21:23] LABS: Anion Gap 8 (5-15); BUN 71 mg/dL (7-18); BUN/Creat Ratio 34.3 RATIO (10-20); Calcium,Total 9.2 mg/dL (8.5-10.1); Chloride 94 mmol/L (98-107); Creatinine, Serum 2.07 mg/dL (0.70-1.30); EST Glomerular Filtration Rate 33 mL/min (>60); Est Glom Filt Rate - Afr Amer 40 mL/min (>60); Estimated Creatinine Clearance 29.16 ml/min; Glucose 488 mg/dL (74-106); Potassium 3.3 mmol/L (3.5-5.1); Sodium Level 133 mmol/L (136-145)
[2024-03-04] MEDS: Albuterol 2.5 MG/3 ML VIAL.NEB. 5 MG INHALATION (21:27)
[2024-03-04] MEDS: Ipratropium/Albuterol Sulfate 3 ML AMPUL.NEB INHALATION ×2 (21:27→22:16)
[2024-03-04 21:29] VITALS: PULSE 70; RESP 16
[2024-03-04] MEDS: 0.9% Normal Saline (500mL Bag) 500 ML 999 ML IV (21:36)
[2024-03-04 21:47] LABS: BNP,B-Type NATRIURETIC PEPTIDE 138.8 pg/mL (0-100)
[2024-03-04 22:16] VITALS: PULSE 77; RESP 12
[2024-03-04 22:39] VITALS: BP 128/48; O2SAT 93
--- NOTE | 2024-03-04 23:35 | HP.PCM.HOS_ITS ---
HPI - General General Date of Admission: 03/04/24 HPI Narrative SHAISTA CLOUD, is a 83 M who presents to the hospital with increasing weakness and debility secondary to being diagnosed with COVID. He does have a history of a stroke with left-sided deficits and since he was diagnosed with COVID on Tuesday he is progressively gotten weaker at the assisted living. Currently here in the hospital he is 93% on room air not requiring any oxygen. Blood sugar was elevated since he is diabetic but this was treated with Lantus prior to arrival to the ER and a recheck has not happened yet. Renal function is elevated 2.07 but his baseline is around 1.8. Chest x-ray was unremarkable. [facility] Medical History Diabetes mellitus, type 2 Osteoarthritis Uncontrolled hypertension Closed displaced fracture of left femoral neck History of CHF (congestive heart failure) Obstructive sleep apnea Neuropathic pain Physical debility Fall Current use of insulin Back pain due to injury Restless legs Syncope Kidney stones PAF (paroxysmal atrial fibrillation) CHF (congestive heart failure) Anemia Weakness Wears glasses Depression Rash Insulin dependent diabetes mellitus Walker as ambulation aid Prostate disease Low iron Restless legs Stroke/cerebrovascular accident Dietary restriction Non-smoker BiPAP (biphasic positive airway pressure) dependence History of edema History of echocardiogram Cardiology follow-up encounter BPH (benign prostatic hyperplasia) Congestive heart failure Pneumonia Incontinence Limb weakness Unsteadiness Chronic anemia Hypertension Coronary artery disease Right renal artery stenosis Fatigue Ventricular tachycardia seen on cardiac specialist (02/20/21) Peripheral vascular occlusive disease Type 2 diabetes mellitus Hyperlipidemia Essential hypertension History of CVA (cerebrovascular accident) (12/2020) Obstructive Sleep Apnea-Hypopnea Syndrome Absent pedal pulses Skin lesion of face Normocytic normochromic anemia Depression Dysphagia Proteinuria due to type 2 diabetes mellitus Facial droop due to acute stroke Acute left-sided muscle weakness Osteoarthritis Right pontine CVA Recurrent inguinal hernia of right side without obstruction or gangrene Home Medications ?Medication ?Instructions ?Recorded ?Last Taken ?Type Handicap Placard #1 ea 02/12/21 Unknown Rx latanoprost 0.005 % eye drops 1 drp EACH EYE .COMPLEX eyes 02/24/22 12/14/23 History pen needle, diabetic 32 gauge x #50 ea 06/17/22 Unknown Rx (BD Sanaz 2nd Gen Pen Needle) sertraline 50 mg tablet 50 mg PO QHS mood #90 tabs 02/23/23 12/14/23 Rx gabapentin 100 mg capsule 100 mg PO BID pain #180 caps 05/04/23 12/15/23 Rx gabapentin 300 mg capsule 300 mg PO 2100 pain #90 caps 05/04/23 12/14/23 Rx potassium chloride 20 mEq 20 meq PO DAILYCM supplement 30 08/01/23 12/14/23 Rx tablet,extended release(part/cryst) days #30 tabs clopidogrel 75 mg tablet (Plavix) 75 mg PO DAILY blood thinner #90 08/12/23 12/15/23 Rx tabs amiodarone 200 mg tablet 100 mg (1/2 x 200 mg) PO DAILY BP 08/16/23 Unknown Rx #45 tabs furosemide 40 mg tablet 40 mg PO DAILY Fluid retention #90 08/22/23 12/14/23 Rx TABLETS hydralazine 100 mg tablet 100 mg PO TID BP #270 tabs 09/22/23 12/15/23 Rx oxybutynin chloride 15 mg 15 mg PO DAILY bladder 10/28/23 12/15/23 History tablet,extended release 24 hr pramipexole 0.125 mg tablet 0.125 mg PO QHS parkinsons #90 tabs 11/08/23 12/14/23 Rx acetaminophen 500 mg tablet 1,000 mg (2 x 500 mg) PO Q8 #0 tabs 01/09/24 03/04/24 Rx cyanocobalamin (vitamin B-12) 1,000 mcg IM QMONTH #0 mL 01/09/24 02/20/24 Rx 1,000 mcg/mL injection solution bisacodyl 10 mg rectal suppository 10 mg KS QDAY PRN constipation 01/26/24 02/29/24 History dextromethorphan-guaifenesin 30 1 tab PO Q12H 01/26/24 03/04/24 History mg-600 mg tablet extended [id number] hr (Mucinex DM) nutritional supplements 1 ea PO BID wound healing 01/26/24 03/04/24 History polyethylene glycol See Rx Instructions .Route QDAY 01/26/24 03/04/24 History sennosides 8.6 mg-docusate sodium 1 tab-cap PO BID PRN constipation 01/26/24 Unknown History 50 mg capsule (Senna Plus) amlodipine 10 mg tablet 10 mg PO DAILY #90 tabs 02/14/24 Unknown Rx insulin glargine 100 unit/mL (3 18 unit (0.18 mL) subcut QAM #15 mL 02/15/24 Unknown Rx mL) subcutaneous pen (Lantus Solostar U-100 Insulin) doxazosin 4 mg tablet 4 mg PO QHS Urinary Retention #90 02/27/24 Unknown Rx tabs Allergy/AdvReac Type Severity Reaction Status Date / Time meloxicam (From Mobic) Allergy Intermediate itching Verified 03/05/24 00:43 pravastatin (From Pravachol) AdvReac Mild myalgia Verified 03/05/24 00:43 cholestyramine AdvReac hypoglycemi Verified 03/05/24 00:43 a Family History Mother Hypertension Cancer Father Heart disease Diabetes Surgical History Status post hip hemiarthroplasty History of prostate surgery H/O transurethral resection of prostate (01/12/23) Hx of cystoscopy Hx of total knee arthroplasty History of hydrocelectomy History of cataract surgery History of lumbar laminectomy History of herniorrhaphy History of stent insertion of renal artery (08/05/21) Social History household members: spouse and other details: Abigail is his 's name housing: house number of children: 2 current occupational status: retired and other details: worked for [employer] prior to retiring leisure activities: other Smoking Status: Never smoker Electronic Cigarette Use: not used second hand exposure: No alcohol intake: former substance use type: does not use what type of physical activity do you participate in: walking frequency: 1-2 times per week inés/orthodox: None seatbelt use: always ROS Constitutional Constitutional: Reports weakness; Denies chills, fatigue, fever(s) or malaise Eyes Eyes: Denies blurry vision ENT HEENT: Denies headache(s) or nasal discharge Cardiovascular Cardiovascular: Denies chest pain, dyspnea on exertion or syncope Respiratory/Chest Respiratory/Chest: Reports cough; Denies shortness of breath at rest or shortness of breath with exertion Gastrointestinal Gastrointestinal: Denies constipation, diarrhea, nausea or vomiting Genitourinary Genitourinary: Denies dysuria Neurologic Neurologic: Denies focal weakness, numbness or tremor(s) Psychiatric Psychiatric: Denies anxiety or depression Vital Signs Vital Signs Vital Signs: 03/04/24 20:40 03/04/24 20:44 03/04/24 20:54 Temperature 98.4 F Temperature Source Oral Pulse Rate 68 Respiratory Rate 16 Respiratory Effort Normal Non-Labored Respiratory Pattern Normal Blood Pressure 160/55 H Blood Pressure Mean 90 Pulse Ox 94 92 Oxygen Delivery Method Room Air Room Air 03/04/24 21:29 03/04/24 22:16 03/04/24 22:39 Temperature Temperature Source Pulse Rate 70 77 Respiratory Rate 16 12 Respiratory Effort Respiratory Pattern Normal Normal Blood Pressure 128/48 H Blood Pressure Mean 74 Pulse Ox 93 Oxygen Delivery Method Room Air Weight Weight: 183 lb 3.266 oz Body Mass Index (BMI) 24.8 Physical Exam Narrative General: Alert, Oriented x3, Cooperative, No apparent distress HEENT: Atraumatic, PERRLA, EOMI, Normocephalic Oral: Moist Mucosa Neck: Supple, No JVD Lungs: Diminished, Normal air movement, No rhonchi, No wheeze, No rales Cardiovascular: Regular rate, Regular Rhythm, Normal S1, Normal S2, No murmurs Abdomen: Soft, Non Tender, Non-Distended, No Hepato-splenomegaly Extremities: No edema, Capillary Refill Less than 3 Seconds Skin: No rashes, No breakdown Musculoskeletal: No Tenderness to Palpation of Joints or Extremities Neurological: Right upper extremity has sensation but no movement. He has lower extremity movement and it does appear that his deficits are baseline from his stroke Psych/Mental Status: Flat Results Lab / Micro Data 03/04/24 20:50 03/04/24 20:50 Labs: Laboratory Results - last 24 hr 03/04/24 20:50: WBC 8.5, RBC 3.78 L, Hgb 11.2 L, Hct 34.8 L, MCV 92.1, MCH 29.6, MCHC 32.2, RDW Std Deviation 46.4 H, RDW Coeff of Cait 13.7, Plt Count 213, MPV 11.7, Immature Gran % (Auto) 1.200 H, Neut % (Auto) 75.7 H, Lymph % (Auto) 11.0 L, [place] % (Auto) 9.1, Eos % (Auto) 2.6, Baso % (Auto) 0.4, Absolute Neuts (auto) 6.5, Absolute Lymphs (auto) 0.94, Nucleated RBC % 0, Sodium 133 L, Potassium 3.3 L, Chloride 94 L, Carbon Dioxide 31.0, Anion Gap 8, BUN 71 H, Creatinine 2.07 H, Estim Creat Clear Calc 29.16, Est GFR (MDRD) Af Amer 40 L, Est GFR (MDRD) Non-Af 33 L, BUN/Creatinine Ratio 34.3 H, Glucose 488 H*, Calcium 9.2, B-Natriuretic Peptide 138.8 H 03/04/24 21:30: Acetone Level NEGATIVE Imaging Radiology Impression Chest X-Ray 03/04/24 20:52 IMPRESSION: There are no acute findings. Electronically Signed: Alphonse Leggett MD at 21:22 EST Reading Location ID and State: [facility] [place] / [place] , Service support , Assessment & Plan Assessment/Plan (1) Weakness: PLAN: Plan 1. Weakness and debility secondary to COVID in the setting of a previous stroke ? Currently not hypoxic and with his hyperglycemia issues we will hold off of any steroids or treatment for COVID ? Continue with breathing treatments ? PT/OT ? Will consult case management for discharge planning 2. Paroxysmal A-fib/essential HTN/HLD/history of CVA ? Resume his home medications when verified ? Will monitor make adjustments as necessary 3. DM2 with CKD 3 ? Sliding scale insulin ? Accu-Cheks ACHS ? Will monitor and make adjustments as necessary ? Renal function appears to be close to baseline at and does not meet criteria for NABILA 4. BPH ? Stable ? Continue with his home medications 5. Anxiety/depression ? Stable ? Continue with Zoloft DVT: Heparin 75 minutes was spent on direct patient care, including documentation as well as chart review and collaboration with colleagues Charges/Coding Visit Charges Inpatient E&M: 95211 Init Hosp L3
[2024-03-05] VITALS (15 sets, daily range): BP systolic 120–152; BP diastolic 48–60; PULSE 56–78; RESP 16–20; TEMP 36.4–37.2; O2SAT 88–99; BMI 23.3
[2024-03-05] MEDS: Insulin Lispro 100 UNIT/ML INSULN.PEN SC ×3 (01:43→16:19)
[2024-03-05 04:12] LABS: Bedside Glucose 411 mg/dL (74-106)
[2024-03-05 06:14] LABS: Absolute Lymphocyte Count 0.91 X10^3/uL (0.83-4.51); Absolute Neutrophil Count 5.4 X10^3/uL (2.0-7.7); Basophil# 0.03 X10^3/uL; Basophil% 0.4 % (0-1); Eosinophil# 0.03 X10^3/uL; Eosinophils% 0.4 % (0-5); Hematocrit 29.9 % (40-54); Hemoglobin 9.8 g/dL (13.0-16.5); Lymphocyte # 0.91 X10^3/ul (0.83-4.51); Lymphocyte % 12.6 % (19-41); Mean Corp Hgb Conc 32.8 g/dL (32-36); Mean Corpuscular Volume 91.4 fL (80-94); Mean Platelet Vol. 11.3 fl (6.2-12.0); Monocyte# 0.82 X10^3/uL; Monocyte% 11.4 % (0-10); NRBC Flagged by Analyzer 0 % (0-5); Neutrophil # 5.37 X10^3/uL (2.7-7.7); Neutrophil % 74.4 % (47-70); Platelet Count 194 K/mm3 (150-450); RBC Distribution Width CV 13.6 % (11.6-14.6); RBC Distribution Width SD 46.2 fl (35.1-43.9); Red Blood Count 3.27 M/mm3 (4.6-6.2); White Blood Count 7.2 K/mm3 (4.4-11.0)
[2024-03-05] MEDS: Acetaminophen 500 MG Tablet 1000 MG PO ×3 (06:24→23:09)
[2024-03-05] MEDS: hydrALAZINE 50 MG Tablet 100 MG PO ×3 (06:24→23:10)
[2024-03-05] MEDS: Gabapentin 100 MG Capsule PO ×2 (06:24→15:02)
[2024-03-05 06:44] LABS: Anion Gap 4 (5-15); BUN 61 mg/dL (7-18); Calcium,Total 8.5 mg/dL (8.5-10.1); Chloride 101 mmol/L (98-107); Creatinine, Serum 1.65 mg/dL (0.70-1.30); EST Glomerular Filtration Rate 42 mL/min (>60); Est Glom Filt Rate - Afr Amer 51 mL/min (>60); Estimated Creatinine Clearance 36.58 ml/min; Glucose 242 mg/dL (74-106); Potassium 2.6 mmol/L (3.5-5.1); Sodium Level 138 mmol/L (136-145)
[2024-03-05 06:53] LABS: Bedside Glucose 215 mg/dL (74-106)
[2024-03-05] MEDS: Ipratropium/Albuterol Sulfate 3 ML AMPUL.NEB INHALATION ×4 (07:22→20:34)
--- NOTE | 2024-03-05 08:19 | PN.HOSP_ITS ---
Reason for Visit Reason for Visit: Weakness Subjective Subjective Patient states he is overall feeling better today. Denies any shortness of breath. Does state he has a cough. No complaints at my evaluation. I did discuss with him that we would need to see how he does with therapy to determine discharge needs. Objective Data Objective Data Vital Signs: Vital Signs Temp Pulse Resp BP Pulse Ox O2 Del Method O2 Flow Rate 98.1 F 77 16 142/56 H 97 Nasal Cannula 2 03/05/24 04:16 03/05/24 06:24 03/05/24 04:16 03/05/24 06:24 03/05/24 04:16 03/05/24 04:21 03/05/24 04:21 Oxygen Flow Rate (L/min) 2 Oxygen Delivery Method Nasal Cannula Weight: 78.1 kg Body Mass Index (BMI) 23.3 Intake & Output: Intake and Output for Last 24 Hours 03/03/24 03/04/24 03/05/24 23:59 23:59 23:59 Intake Total 500 / 500 Output Total 400 / 400 Balance 500 / 500 -400 / -400 Lab / Micro Data 03/05/24 05:58 03/05/24 05:58 Labs: Laboratory Results - last 24 hr 03/04/24 20:50: WBC 8.5, RBC 3.78 L, Hgb 11.2 L, Hct 34.8 L, MCV 92.1, MCH 29.6, MCHC 32.2, RDW Std Deviation 46.4 H, RDW Coeff of Cait 13.7, Plt Count 213, MPV 11.7, Immature Gran % (Auto) 1.200 H, Neut % (Auto) 75.7 H, Lymph % (Auto) 11.0 L, [place] % (Auto) 9.1, Eos % (Auto) 2.6, Baso % (Auto) 0.4, Absolute Neuts (auto) 6.5, Absolute Lymphs (auto) 0.94, Nucleated RBC % 0, Sodium 133 L, Potassium 3.3 L, Chloride 94 L, Carbon Dioxide 31.0, Anion Gap 8, BUN 71 H, Creatinine 2.07 H, Estim Creat Clear Calc 29.16, Est GFR (MDRD) Af Amer 40 L, Est GFR (MDRD) Non-Af 33 L, BUN/Creatinine Ratio 34.3 H, Glucose 488 H*, Calcium 9.2, B-Natriuretic Peptide 138.8 H 03/04/24 21:30: Acetone Level NEGATIVE 03/05/24 01:16: POC Glucose 411 H 03/05/24 05:58: WBC 7.2, RBC 3.27 L, Hgb 9.8 L, Hct 29.9 L, MCV 91.4, MCH 30.0, MCHC 32.8, RDW Std Deviation 46.2 H, RDW Coeff of Cait 13.6, Plt Count 194, MPV 11.3, Immature Gran % (Auto) 0.800, Neut % (Auto) 74.4 H, Lymph % (Auto) 12.6 L, [place] % (Auto) 11.4 H, Eos % (Auto) 0.4, Baso % (Auto) 0.4, Absolute Neuts (auto) 5.4, Absolute Lymphs (auto) 0.91, Nucleated RBC % 0, Sodium 138, Potassium 2.6 L*, Chloride 101, Carbon Dioxide 33.0 H, Anion Gap 4 L, BUN 61 H, Creatinine 1.65 H, Estim Creat Clear Calc 36.58, Est GFR (MDRD) Af Amer 51 L, Est GFR (MDRD) Non-Af 42 L, BUN/Creatinine Ratio 37.0 H, Glucose 242 H, Calcium 8.5 03/05/24 06:22: POC Glucose 215 H Radiography Diagnostic Testing: Radiology Impression Chest X-Ray 03/04/24 20:52 IMPRESSION: There are no acute findings. Electronically Signed: Alphonse Leggett MD at 21:22 EST Reading Location ID and State: [facility] / [place] , Service support , Physical Exam Const alert, oriented x3, no apparent distress, average body habitus and well nourished; Negative for healthy appearing Constitutional Narrative: Elderly, white male, sitting up in bed, appears comfortable, nontoxic, watching television, on room air HEENT head/scalp atraumatic and moist oral mucous membranes HEENT Narrative: No thrush Head and Scalp: normocephalic Resp normal respiratory effort, no retractions, no use of accessory muscles and clear to auscultation bilaterally Auscultation: Negative for rales, rhonchi or wheezes Cardio regular rate, regular rhythm, S1 normal heart sound, S2 normal heart sound, no murmurs, no rub, no gallops and no clicks GI normal to inspection, nondistended, normoactive bowel sounds, soft to palpation and non-tender Extremity no clubbing, cyanosis or edema Neuro moves all extremities and no focal motor deficits Neuro Narrative: Significant generalized weakness-proximal greater than distal, no focal deficits present Speech: speech normal Psych Psych Narrative: Affect is slightly flat, eye contact is good however and patient interacts appropriately Assessment & Plan Assessment/Plan (1) Generalized weakness: (2) COVID-19 virus infection: PLAN: Plan Acute on chronic generalized weakness and debility secondary to acute COVID-19 infection with history of previous stroke -With regards to COVID-19 infection patient remained stable on room air -As needed breathing treatments ordered -PT/OT following -Current plan is for discharge to transitional care unit if there is bed availability -Patient will need pre-CERT prior to discharge Severe hypokalemia -P.o. potassium replacement given -Recheck in a.m. -Magnesium level was assessed and within normal limits CKD stage IIIb -Serum creatinine is stable and at baseline -Continue to monitor Essential hypertension/hyperlipidemia -Continue home amlodipine -Continue home Lasix -continue home hydralazine History of stroke -Patient with residual weakness which complicates the above -Continue Plavix -Continue management of secondary risk factors DM-2 -Insulin on medical insulation has not yet been verified--> will initiate if verified -Hold home oral agents -SSI with Accu-Cheks PAF -Continue home amiodarone -Patient not anticoagulated due to his history of anemia Chronic normocytic anemia -Baseline appears to be between 9 and 10 -Currently stable -Continue to monitor Neuropathy -Continue home gabapentin Urinary incontinence Continue home oxybutynin Parkinson's disease -Continue home Mirapex Depression -Continue home sertraline BPH with obstruction -cont alpha wilmer DVT prophylaxis -Subcu heparin as ordered CODE STATUS -Full code Charges/Coding Visit Charges Inpatient E&M: 19212 Subs Hosp L2
[2024-03-05] MEDS: Glucerna Shake 120 ML LIQUID PO ×3 (08:53→16:23)
[2024-03-05] MEDS: Clopidogrel Bisulfate 75 MG Tablet PO (08:54)
[2024-03-05] MEDS: Potassium Chloride Oral Tablet 20 MEQ PO (08:54)
[2024-03-05] MEDS: Polyethylene Glycol 3350 17 GM PACKET PO (08:54)
[2024-03-05] MEDS: Tolterodine Tartrate 4 MG CAP.SA PO (08:55)
[2024-03-05] MEDS: Heparin Injection (Vial) 5,000 UNIT/ML VIAL 5000 UNIT SC ×2 (08:55→23:10)
[2024-03-05] MEDS: amLODIPine 10 MG Tablet PO (08:55)
[2024-03-05] MEDS: Amiodarone 200 MG Tablet 100 MG PO (08:55)
[2024-03-05] MEDS: Insulin Glargine-YFGN 100 UNIT/ML Pen 24 UNIT SC (08:56)
[2024-03-05 09:02] LABS: Magnesium 2.3 mg/dL (1.6-2.6)
[2024-03-05] MEDS: Furosemide 40 MG Tablet PO (11:03)
[2024-03-05] MEDS: guaiFENesin/D-Methorphan TAB.SR.12H 1 TABLET PO ×2 (11:04→23:09)
[2024-03-05] MEDS: Potassium Chloride Oral Tablet 20 MEQ 40 MEQ PO ×2 (11:04→16:24)
[2024-03-05 12:10] LABS: Bedside Glucose 149 mg/dL (74-106)
--- NOTE | 2024-03-05 14:21 | CASEMGMT ---
Addendum entered by Rizwana Hahn 03/05/24 15:08: Fax confirmation rec'd. Rizwana Hahn DC Planning Asst. Original Note: Discharge Planning Updates faxed to [place]. Rizwana Hahn DC Planning Asst.
--- NOTE | 2024-03-05 14:33 | CASEMGMT ---
ALBARO called patient's Abigail and inquired if patient's plan is to return to [place] of go to a facility for rehab. Abigail said when patient was in the ER the doctor made it sound like going to a alf facility for rehab was the plan. ALBARO asked if she has a preference for where she would like patient to go. [facility] SW let her know SW will make a referral. However, SW will leave a list of other facilities that take patient's insurance in the event TCU cannot take him. ALBARO made a referral to [facility] TCU. Liza CAMARA
--- NOTE | 2024-03-05 15:15 | CASEMGMT ---
Met with patient to complete RAMACHANDRAN form. RAMACHANDRAN form explained to patient who voiced understanding and signed form. Original form placed in pt?s chart and copy provided to patient. Rizwana Hahn, Discharge Planning Asst
--- NOTE | 2024-03-05 15:37 | CASEMGMT ---
TCU cannot take patient. SW will check in with patient's tomorrow. Liza Romero CHIEF MEDICAL OFFICERJuan M CAMARA
--- NOTE | 2024-03-05 15:44 | CASEMGMT ---
Discharge Planning A list of SNF providers including quality and resource use data and consistent with the patient's preferred geographic region, medical needs, and insurance network was created in [facility] Guide.? This list was provided to the SW. Rizwana Hahn, Discharge Planning Ass
[2024-03-05 16:38] LABS: Bedside Glucose 236 mg/dL (74-106)
[2024-03-05] MEDS: Gabapentin 300 MG Capsule PO (21:02)
[2024-03-05] MEDS: Latanoprost 0.005% 1 Bottle 1 DRP EACH EYE (23:02)
[2024-03-05] MEDS: Doxazosin 4 MG Tablet PO (23:09)
[2024-03-05] MEDS: Sertraline 50 MG Tablet PO (23:10)
[2024-03-05] MEDS: Pramipexole Di-HCl 0.125 MG Tablet PO (23:24)
[2024-03-05 23:37] LABS: Bedside Glucose 151 mg/dL (74-106)
[2024-03-06] VITALS (13 sets, daily range): BP systolic 106–141; BP diastolic 56–72; PULSE 62–85; RESP 17–18; TEMP 36.4–36.9; O2SAT 93–97
[2024-03-06] MEDS: hydrALAZINE 50 MG Tablet 100 MG PO ×3 (06:34→21:07)
[2024-03-06] MEDS: Gabapentin 100 MG Capsule PO ×2 (06:34→14:45)
[2024-03-06] MEDS: Acetaminophen 500 MG Tablet 1000 MG PO ×3 (06:34→21:07)
[2024-03-06 06:40] LABS: Anion Gap 3 (5-15); BUN 53 mg/dL (7-18); BUN/Creat Ratio 31.4 RATIO (10-20); Calcium,Total 8.7 mg/dL (8.5-10.1); Chloride 105 mmol/L (98-107); Creatinine, Serum 1.69 mg/dL (0.70-1.30); EST Glomerular Filtration Rate 41 mL/min (>60); Est Glom Filt Rate - Afr Amer 50 mL/min (>60); Estimated Creatinine Clearance 35.71 ml/min; Glucose 139 mg/dL (74-106); Potassium 3.6 mmol/L (3.5-5.1); Sodium Level 140 mmol/L (136-145)
[2024-03-06 06:59] LABS: Bedside Glucose 135 mg/dL (74-106)
--- NOTE | 2024-03-06 07:32 | PN.HOSP_ITS ---
Reason for Visit Reason for Visit: Diagnoses Weakness (03/04/24) COVID-19 (03/04/24) Subjective Subjective Patient with no acute events overnight per self and per nursing report. He notes he is breathing with greater ease but still very fatigued and weak. He remains amenable to care home facility transition once precertification is obtained. Patient denies fevers, chills, nausea, emesis, abdominal pain, chest pain or dyspnea. Objective Data Objective Data Vital Signs: Vital Signs Temp Pulse Resp BP Pulse Ox O2 Del Method O2 Flow Rate 98.4 F 62 18 141/63 H 96 Room Air 2 03/06/24 04:30 03/06/24 06:34 03/06/24 04:30 03/06/24 04:30 03/06/24 06:39 03/06/24 06:39 03/05/24 22:55 Oxygen Flow Rate (L/min) 2 Oxygen Delivery Method Room Air Weight: 172 lb 2.896 oz Body Mass Index (BMI) 23.3 Intake & Output: Intake and Output for Last 24 Hours 03/04/24 03/05/24 03/06/24 23:59 23:59 23:59 Intake Total 500 / 500 Output Total 1200 / 1200 200 / 200 Balance 500 / 500 -1200 / -1200 -200 / -200 Lab / Micro Data 03/05/24 05:58 03/06/24 05:22 Labs: Laboratory Results - last 24 hr 03/05/24 05:58: Magnesium 2.3 03/05/24 11:01: POC Glucose 149 H 03/05/24 16:19: POC Glucose 236 H 03/05/24 23:12: POC Glucose 151 H 03/06/24 05:22: Sodium 140, Potassium 3.6, Chloride 105, Carbon Dioxide 33.0 H, Anion Gap 3 L, BUN 53 H, Creatinine 1.69 H, Estim Creat Clear Calc 35.71, Est GFR (MDRD) Af Amer 50 L, Est GFR (MDRD) Non-Af 41 L, BUN/Creatinine Ratio 31.4 H , Glucose 139 H, Calcium 8.7 03/06/24 06:29: POC Glucose 135 H Physical Exam Narrative Physical Examination: General: Awake, alert, oriented x 3 and cooperative, seated upright in the PCU bed, fatigued but notes feeling improved since initial ED evaluation. Skin: Normal color, normal turgor, no icterus, no cyanosis except occasional stage ecchymoses, abrasion likely from lab draws. HEENT: AT/NC, EOMI, PERRLA, MMM. Lungs: Diminished, greater bases, no evidence of any distress, no rales, ronchi or wheezing. Heart: Regular rate and rhythm; no gallop, rub audible. Abdomen: Soft, NTTP, ND, normal BS. Extremities: No cyanosis, no clubbing, no marked peripheral edema. Neurological: Patient awake, alert, oriented as noted, cognitive function intact; pupils equally reactive to light and accommodation, cranial nerves gross normal, moving all 4 extremities, no focal deficits, strength improving but remains moderately to severely globally decreased. Psychiatric: Affect appears mildly flat, fatigued, no acute evidence of depressive or anxiety feelings. Assessment & Plan Assessment/Plan (1) Generalized weakness: (2) COVID-19 virus infection: PLAN: Plan The patient is an 83 y/o M w/ PMHx: HTN, HLD, CKD stage IIIb, Hx CVA with chronic left-sided deficits, Diabetes mellitus type II with chronic neuropathy, PAF, Chronic normocytic anemia, BPH with obstructive pathology, Parkinson's disease, Anxiety and Depression who presents to the [facility] ED on 03/04/24 with history of increasing weakness, malaise, debility with recent COVID diagnosis on Tuesday progressively declining living in assisted living with inability to care for himself at that level of care. #1. Acute on chronic generalized weakness and debility w/ Adult FTT secondary to Acute COVID-19 infection complicated by underlying comorbidities including history of CVA with chronic left-sided hemiplegia: Patient noted to medical surgical status, patient remained stable on room air with no oxygenation needs, as needed albuterol, given stability with no oxygenation requirements deferred steroids and antiviral regimen, PT/OT/case management for skilled facility placement. #2. Severe hypokalemia: Admission potassium 3.3, decreased further down to 2.6, supplementation administered, 03/06/2024 potassium normalized to 3.6, magnesium level was assessed and noted to be normal. #3. History CVA: Patient with residual left-sided hemiplegia, complicates presentation, continued on Plavix, hypertensive regimen, diabetic regimen with adjustments, not on statin therapy secondary to myalgias. #4. Hypertension: Continue home regimen including amlodipine, hydralazine, Lasix with hold parameters as needed, PRN hydralazine. #5. Anxiety and depression: We will continue patient on sertraline regimen. #6. Diabetes mellitus type II with chronic neuropathy: Hold oral home regimen, continue home insulin regimen, ADA diet, accu checks w/ ISS, continue home gabapentin regimen. #7. PAF: Continued on patient home amiodarone regimen, not chronically anticoagulated secondary to significant anemia history as well as elevated fall risk. #8. Chronic Kidney Disease Stage III B: Admission BUN/Cr 71/2.07, GFR 33, baseline renal function 1.5-1.8 primarily, 03/06/2024 BUN/creatinine 53/1.69, GFR 41, repeat BMP in AM. #9. Hyperlipidemia: Not on statin therapy secondary to intolerance. #10. Chronic normocytic anemia: Admission: 11.2, MCV 92.1, baseline hemoglobin more recently appears primarily 9-10, 03/05/24 hemoglobin 9.8, stable. #11. Parkinson's disease: Complicates presentation, increases fall risk, we will continue patient on Mirapex regimen, PT/OT/case management consulted as noted. #12. Chronic urinary incontinence: We will continue patient home oxybutynin regimen. #13. BPH with obstructive pathology: Continued on alpha-wilmer, monitor for any further symptoms #14. DVT prophylaxis: Heparin. #15. CODE status: Full Code. Charges/Coding Visit Charges Inpatient E&M: 51157 Init Hosp L2
--- NOTE | 2024-03-06 09:18 | CASEMGMT ---
ALBARO called [facility] and spoke with Estefania one of patient's RN's. ALBARO asked about patient's baseline physically. Estefania stated the last week or so patient has been requiring more assistance and the is not able to help him on her own. [facility] has had to help more with his care. Prior to this patient's had been able to help patient on her own. ALBARO solar sales energy advisor CM will talk with therapy. Patient told therapy he is at his baseline which will make it difficult to get him approved for SNF. Liza Romero RESTAURANT AND BAR MANAGER HOA
[2024-03-06] MEDS: Furosemide 40 MG Tablet PO (09:40)
[2024-03-06] MEDS: Amiodarone 200 MG Tablet 100 MG PO (09:40)
[2024-03-06] MEDS: Potassium Chloride Oral Tablet 20 MEQ PO (09:41)
[2024-03-06] MEDS: Clopidogrel Bisulfate 75 MG Tablet PO (09:41)
[2024-03-06] MEDS: Tolterodine Tartrate 4 MG CAP.SA PO (09:41)
[2024-03-06] MEDS: Polyethylene Glycol 3350 17 GM PACKET PO (09:41)
[2024-03-06] MEDS: amLODIPine 10 MG Tablet PO (09:41)
[2024-03-06] MEDS: guaiFENesin/D-Methorphan TAB.SR.12H 1 TABLET PO ×2 (09:41→21:08)
[2024-03-06] MEDS: Heparin Injection (Vial) 5,000 UNIT/ML VIAL 5000 UNIT SC ×2 (09:42→21:08)
[2024-03-06] MEDS: Insulin Glargine-YFGN 100 UNIT/ML Pen 24 UNIT SC (09:43)
[2024-03-06] MEDS: Ipratropium/Albuterol Sulfate 3 ML AMPUL.NEB INHALATION ×3 (10:56→19:55)
--- NOTE | 2024-03-06 11:05 | CASEMGMT ---
TCU is not able to take patient. SW called patient's Abigail and let her know this information. ALBARO let Abigail know SW will leave a list of other facilities that take patient's insurance in patient's room. Plan: SNF pending patient and his 's choices, accepting facility, and pre-cert. Liza Romero LAWN MAINTENANCE WORKER HOA
[2024-03-06] MEDS: Insulin Lispro 100 UNIT/ML INSULN.PEN SC ×3 (12:14→21:10)
[2024-03-06] MEDS: Glucerna Shake 120 ML LIQUID PO ×2 (12:14→17:15)
[2024-03-06 12:36] LABS: Bedside Glucose 296 mg/dL (74-106)
--- NOTE | 2024-03-06 14:45 | CASEMGMT ---
Patient's Abigail was at [facility] and asked for SW. SW let her know that TCU cannot take patient. ALBARO provided Abigail with a list of [facility] facility providers including quality and resource use data and consistent with patient?s preferred geographic region, medical needs, and insurance network were [facility]. Abigail asked if patient could go back to [place]. ALBARO let her know that SW can check with [place]. However, in the meantime she should review the list. ALBARO called [facility] and left a message for Ansley Argueta to call ALBARO back. Liza Romero BRICK HANDLER HOA
[2024-03-06 17:36] LABS: Bedside Glucose 198 mg/dL (74-106)
[2024-03-06] MEDS: Gabapentin 300 MG Capsule PO (21:07)
[2024-03-06] MEDS: Pramipexole Di-HCl 0.125 MG Tablet PO (21:07)
[2024-03-06] MEDS: Sertraline 50 MG Tablet PO (21:07)
[2024-03-06] MEDS: Doxazosin 4 MG Tablet PO (21:07)
[2024-03-06 21:50] LABS: Bedside Glucose 262 mg/dL (74-106)
[2024-03-07] VITALS (14 sets, daily range): BP systolic 119–155; BP diastolic 60–71; PULSE 60–88; RESP 16–18; TEMP 36.6–36.7; O2SAT 95–98
[2024-03-07] MEDS: hydrALAZINE 50 MG Tablet 100 MG PO ×3 (06:15→22:42)
[2024-03-07] MEDS: Gabapentin 100 MG Capsule PO ×2 (06:15→14:49)
[2024-03-07] MEDS: Acetaminophen 500 MG Tablet 1000 MG PO ×3 (06:15→22:43)
--- NOTE | 2024-03-07 06:35 | PN.HOSP_ITS ---
Reason for Visit Reason for Visit: Diagnoses Weakness (03/04/24) COVID-19 (03/04/24) Subjective Subjective Patient with no acute events overnight per self and per nursing report. He notes he continues to feel improved with less dyspnea although still some coughing but overall better than his initial presentation. He does still feel weak and understands need for ongoing PT and OT assessments with plan skilled facility placement. He understands that unfortunately over the holiday this would likely not happen until potentially 03/08/2024 or 03/09/2024 although certainly could be longer depending on when they complete precertification process. Patient denies fevers, chills, nausea, emesis, abdominal pain, chest pain. Objective Data Objective Data Vital Signs: Vital Signs Temp Pulse Resp BP Pulse Ox O2 Del Method O2 Flow Rate 98 F 88 18 127/60 H 95 Nasal Cannula 2 03/07/24 06:00 03/07/24 06:15 03/07/24 06:00 03/07/24 06:15 03/07/24 06:00 03/07/24 06:00 03/07/24 06:00 Oxygen Flow Rate (L/min) 2 Oxygen Delivery Method Nasal Cannula Weight: 172 lb 2.896 oz Body Mass Index (BMI) 23.3 Intake & Output: Intake and Output for Last 24 Hours 03/05/24 03/06/24 03/07/24 23:59 23:59 23:59 Intake Total 720 / 720 Output Total 1200 / 1200 1000 / 1400 700 / 700 Balance -1200 / -1200 -280 / -680 -700 / -700 Lab / Micro Data 03/07/24 05:07 03/07/24 05:07 Labs: Laboratory Results - last 24 hr 03/06/24 05:22: Sodium 140, Potassium 3.6, Chloride 105, Carbon Dioxide 33.0 H, Anion Gap 3 L, BUN 53 H, Creatinine 1.69 H, Estim Creat Clear Calc 35.71, Est GFR (MDRD) Af Amer 50 L, Est GFR (MDRD) Non-Af 41 L, BUN/Creatinine Ratio 31.4 H , Glucose 139 H, Calcium 8.7 03/06/24 06:29: POC Glucose 135 H 03/06/24 12:12: POC Glucose 296 H 03/06/24 17:14: POC Glucose 198 H 03/06/24 21:03: POC Glucose 262 H Physical Exam Narrative Physical Examination: General: Awake, alert, oriented x 3 and cooperative, seated upright in the PCU bed, eating breakfast, denies any acute complaints Skin: Normal color, normal turgor, no icterus, no cyanosis except occasional stage ecchymoses, abrasion likely from lab draws. HEENT: AT/NC, EOMI, PERRLA, MMM. Lungs: Diminished, greater bases, no evidence of any distress, no rales, ronchi or wheezing. Heart: Regular rate and rhythm; no gallop, rub audible. Abdomen: Soft, NTTP, ND, normal BS. Extremities: No cyanosis, no clubbing, no marked peripheral edema. Neurological: Patient awake, alert, oriented as noted, cognitive function intact; pupils equally reactive to light and accommodation, cranial nerves gross normal, moving all 4 extremities, no focal deficits, strength improving but remains moderately to severely globally decreased. Psychiatric: Affect appears fatigued but states he still continues to feel improved, no acute evidence of depressive or anxiety feelings. Assessment & Plan Assessment/Plan (1) Generalized weakness: (2) COVID-19 virus infection: PLAN: Plan The patient is an 83 y/o M w/ PMHx: HTN, HLD, CKD stage IIIb, Hx CVA with chronic left-sided deficits, Diabetes mellitus type II with chronic neuropathy, PAF, Chronic normocytic anemia, BPH with obstructive pathology, Parkinson's disease, Anxiety and Depression who presents to the [facility] ED on 03/04/24 with history of increasing weakness, malaise, debility with recent COVID diagnosis on Tuesday progressively declining living in assisted living with inability to care for himself at that level of care. #1. Acute on chronic generalized weakness and debility w/ Adult FTT secondary to Acute COVID-19 infection complicated by underlying comorbidities including history of CVA with chronic left-sided hemiplegia: Patient noted to medical surgical status, patient remained stable on room air with no oxygenation needs, as needed albuterol, given stability with no oxygenation requirements deferred steroids and antiviral regimen, PT/OT/case management for skilled facility placement. #2. Severe hypokalemia: Admission potassium 3.3, decreased further down to 2.6, supplementation administered, 03/06/2024 potassium normalized to 3.6->03/07/24 K+ 3.1 with additional supplementation given, magnesium level was assessed and noted to be normal. Concurrently continue on scheduled daily supplementation. Repeat level 03/08/24. #3. History CVA: Patient with residual left-sided hemiplegia, complicates presentation, continued on Plavix, hypertensive regimen, diabetic regimen with adjustments, not on statin therapy secondary to myalgias. #4. Hypertension: Continue home regimen including amlodipine, hydralazine, Lasix with hold parameters as needed, PRN hydralazine. #5. Anxiety and depression: We will continue patient on sertraline regimen. #6. Diabetes mellitus type II with chronic neuropathy: Hold oral home regimen, continue home insulin regimen, ADA diet, accu checks w/ ISS, continue home gabapentin regimen. #7. PAF: Continued on patient home amiodarone regimen, not chronically anticoagulated secondary to significant anemia history as well as elevated fall risk. #8. Chronic Kidney Disease Stage III B: Admission BUN/Cr 71/2.07, GFR 33, baseline renal function 1.5-1.8 primarily, 03/06/2024 BUN/creatinine 53/1.69, GFR 41->03/07/24 BUN/Cr 45/1.75, mildly increased from day prior, repeat BMP in AM. #9. Hyperlipidemia: Not on statin therapy secondary to intolerance. #10. Chronic normocytic anemia: Admission: 11.2, MCV 92.1, baseline hemoglobin more recently appears primarily 9-10, 03/07/24 Hgb 9.8, stable. #11. Parkinson's disease: Complicates presentation, increases fall risk, we will continue patient on Mirapex regimen, PT/OT/case management consulted as noted. #12. Chronic urinary incontinence: We will continue patient home oxybutynin regimen. #13. BPH with obstructive pathology: Continued on alpha-wilmer, monitor for any further symptoms #14. DVT prophylaxis: Heparin. #15. CODE status: Full Code. Charges/Coding Visit Charges Inpatient E&M: 45678 Subs Hosp L2
[2024-03-07 06:40] LABS: Absolute Lymphocyte Count 1.02 X10^3/uL (0.83-4.51); Absolute Neutrophil Count 4.7 X10^3/uL (2.0-7.7); Basophil# 0.03 X10^3/uL; Basophil% 0.4 % (0-1); Eosinophil# 0.24 X10^3/uL; Eosinophils% 3.4 % (0-5); Hematocrit 30.7 % (40-54); Hemoglobin 9.8 g/dL (13.0-16.5); Lymphocyte # 1.02 X10^3/ul (0.83-4.51); Lymphocyte % 14.7 % (19-41); Mean Corp Hgb Conc 31.9 g/dL (32-36); Mean Corpuscular Hgb 29.7 pg (27.0-32.0); Mean Platelet Vol. 11.3 fl (6.2-12.0); Monocyte# 0.91 X10^3/uL; Monocyte% 13.1 % (0-10); NRBC Flagged by Analyzer 0 % (0-5); Neutrophil # 4.66 X10^3/uL (2.7-7.7); Platelet Count 254 K/mm3 (150-450); RBC Distribution Width CV 14.2 % (11.6-14.6); RBC Distribution Width SD 48.3 fl (35.1-43.9)
[2024-03-07 06:41] LABS: Bedside Glucose 100 mg/dL (74-106)
[2024-03-07 07:09] LABS: ALB/GLOB Ratio 0.7 RATIO (0.9-2.4); AST(SGOT) 17 U/L (15-37); Alanine Aminotransfer ALT/SGPT 14 U/L (16-61); Albumin, Serum 2.5 g/dL (3.2-5.0); Alkaline Phosphatase 63 U/L (45-117); Anion Gap 5 (5-15); BUN 45 mg/dL (7-18); BUN/Creat Ratio 25.7 RATIO (10-20); Calcium,Total 8.6 mg/dL (8.5-10.1); Chloride 102 mmol/L (98-107); Creatinine, Serum 1.75 mg/dL (0.70-1.30); EST Glomerular Filtration Rate 40 mL/min (>60); Est Glom Filt Rate - Afr Amer 48 mL/min (>60); Estimated Creatinine Clearance 34.49 ml/min; Globulin 3.7 g/dL (2.2-4.2); Glucose 103 mg/dL (74-106); Potassium 3.1 mmol/L (3.5-5.1); Protein, Total 6.2 g/dL (6.4-8.2); Sodium Level 140 mmol/L (136-145)
[2024-03-07] MEDS: Ipratropium/Albuterol Sulfate 3 ML AMPUL.NEB INHALATION ×4 (07:23→20:16)
[2024-03-07] MEDS: Clopidogrel Bisulfate 75 MG Tablet PO (08:23)
[2024-03-07] MEDS: Amiodarone 200 MG Tablet 100 MG PO (08:23)
[2024-03-07] MEDS: amLODIPine 10 MG Tablet PO (08:23)
[2024-03-07] MEDS: guaiFENesin/D-Methorphan TAB.SR.12H 1 TABLET PO ×2 (08:23→22:43)
[2024-03-07] MEDS: Polyethylene Glycol 3350 17 GM PACKET PO (08:23)
[2024-03-07] MEDS: Potassium Chloride Oral Tablet 20 MEQ 40 MEQ PO (08:24)
[2024-03-07] MEDS: Potassium Chloride Oral Tablet 20 MEQ PO (08:24)
[2024-03-07] MEDS: Furosemide 40 MG Tablet PO (08:24)
[2024-03-07] MEDS: Tolterodine Tartrate 4 MG CAP.SA PO (08:24)
[2024-03-07] MEDS: Glucerna Shake 120 ML LIQUID PO ×2 (08:25→16:37)
[2024-03-07] MEDS: Heparin Injection (Vial) 5,000 UNIT/ML VIAL 5000 UNIT SC ×2 (08:35→22:43)
[2024-03-07] MEDS: Insulin Lispro 100 UNIT/ML INSULN.PEN SC ×2 (12:27→22:44)
[2024-03-07] MEDS: Insulin Glargine-YFGN 100 UNIT/ML Pen 24 UNIT SC (12:28)
[2024-03-07 17:06] LABS: Bedside Glucose 137 mg/dL (74-106)
[2024-03-07] MEDS: Gabapentin 300 MG Capsule PO (22:42)
[2024-03-07] MEDS: Doxazosin 4 MG Tablet PO (22:43)
[2024-03-07] MEDS: Pramipexole Di-HCl 0.125 MG Tablet PO (22:43)
[2024-03-07] MEDS: Sertraline 50 MG Tablet PO (22:43)
[2024-03-07] MEDS: Latanoprost 0.005% 1 Bottle 1 DRP EACH EYE (22:44)
[2024-03-07 23:48] LABS: Bedside Glucose 208 mg/dL (74-106)
[2024-03-08] VITALS (8 sets, daily range): BP systolic 122–136; BP diastolic 50–62; PULSE 71–81; RESP 14–18; TEMP 35.9–37.1; O2SAT 91–96
[2024-03-08] MEDS: Gabapentin 100 MG Capsule PO (06:25)
[2024-03-08 06:26] LABS: Absolute Neutrophil Count 8.3 X10^3/uL (2.0-7.7); Basophil# 0.02 X10^3/uL; Basophil% 0.2 % (0-1); Eosinophil# 0.23 X10^3/uL; Eosinophils% 2.1 % (0-5); Hematocrit 30.8 % (40-54); Hemoglobin 9.9 g/dL (13.0-16.5); Lymphocyte % 12.1 % (19-41); Mean Corp Hgb Conc 32.1 g/dL (32-36); Mean Corpuscular Hgb 29.7 pg (27.0-32.0); Mean Corpuscular Volume 92.5 fL (80-94); Mean Platelet Vol. 10.4 fl (6.2-12.0); Monocyte# 0.81 X10^3/uL; Monocyte% 7.5 % (0-10); NRBC Flagged by Analyzer 0 % (0-5); Neutrophil # 8.29 X10^3/uL (2.7-7.7); Neutrophil % 77.3 % (47-70); Platelet Count 269 K/mm3 (150-450); RBC Distribution Width CV 14.2 % (11.6-14.6); RBC Distribution Width SD 48.4 fl (35.1-43.9); Red Blood Count 3.33 M/mm3 (4.6-6.2); White Blood Count 10.7 K/mm3 (4.4-11.0)
[2024-03-08] MEDS: Acetaminophen 500 MG Tablet 1000 MG PO (06:26)
[2024-03-08] MEDS: hydrALAZINE 50 MG Tablet 100 MG PO (06:36)
[2024-03-08 06:53] LABS: ALB/GLOB Ratio 0.7 RATIO (0.9-2.4); AST(SGOT) 19 U/L (15-37); Alanine Aminotransfer ALT/SGPT 18 U/L (16-61); Albumin, Serum 2.5 g/dL (3.2-5.0); Alkaline Phosphatase 65 U/L (45-117); Anion Gap 5 (5-15); BUN 40 mg/dL (7-18); BUN/Creat Ratio 25.6 RATIO (10-20); Calcium,Total 8.5 mg/dL (8.5-10.1); Chloride 102 mmol/L (98-107); Creatinine, Serum 1.56 mg/dL (0.70-1.30); EST Glomerular Filtration Rate 45 mL/min (>60); Est Glom Filt Rate - Afr Amer 55 mL/min (>60); Estimated Creatinine Clearance 38.69 ml/min; Globulin 3.7 g/dL (2.2-4.2); Glucose 68 mg/dL (74-106); Potassium 3.5 mmol/L (3.5-5.1); Protein, Total 6.2 g/dL (6.4-8.2); Sodium Level 137 mmol/L (136-145)
[2024-03-08] MEDS: Ipratropium/Albuterol Sulfate 3 ML AMPUL.NEB INHALATION ×2 (07:00→11:16)
[2024-03-08 07:18] LABS: Bedside Glucose 68 mg/dL (74-106)
--- NOTE | 2024-03-08 07:36 | PCM.PN.HOSP ---
Reason for Visit Reason for Visit: Diagnoses Weakness (03/07/24) COVID-19 (03/07/24) Subjective Subjective Patient with no acute events overnight per self and per nursing report. He notes unfortunately he did not sleep as well as normal but this is because he was having difficulty falling asleep. He notes otherwise he is feeling well with no marked cough or severe dyspnea. He is eager for discharge. Patient denies fevers, chills, nausea, emesis, abdominal pain, chest pain. Objective Data Objective Data Vital Signs: Vital Signs Temp Pulse Resp BP Pulse Ox O2 Del Method O2 Flow Rate 96.6 F L 73 16 136/62 H 95 Room Air 2 03/08/24 03:45 03/08/24 07:00 03/08/24 07:00 03/08/24 06:36 03/08/24 07:00 03/08/24 07:00 03/07/24 16:57 Oxygen Flow Rate (L/min) 2 Oxygen Delivery Method Room Air Weight: 172 lb 2.896 oz Body Mass Index (BMI) 23.3 Intake & Output: Intake and Output for Last 24 Hours 03/06/24 03/07/24 03/08/24 23:59 23:59 23:59 Intake Total 720 / 720 800 / 800 Output Total 1000 / 1400 950 / 1550 1250 / 1250 Balance -280 / -680 -950 / -1100 -450 / -450 Lab / Micro Data 03/08/24 06:20 03/08/24 06:20 Labs: Laboratory Results - last 24 hr 03/07/24 16:39: POC Glucose 137 H 03/07/24 22:41: POC Glucose 208 H 03/08/24 06:20: WBC 10.7, RBC 3.33 L, Hgb 9.9 L, Hct 30.8 L, MCV 92.5, MCH 29.7, MCHC 32.1, RDW Std Deviation 48.4 H, RDW Coeff of Cait 14.2, Plt Count 269, MPV 10.4, Immature Gran % (Auto) 0.800, Neut % (Auto) 77.3 H, Lymph % (Auto) 12.1 L, Bullitt % (Auto) 7.5, Eos % (Auto) 2.1, Baso % (Auto) 0.2, Absolute Neuts (auto) 8.3 H, Absolute Lymphs (auto) 1.30, Nucleated RBC % 0, Sodium 137, Potassium 3.5, Chloride 102, Carbon Dioxide 30.0, Anion Gap 5, BUN 40 H, Creatinine 1.56 H, Estim Creat Clear Calc 38.69, Est GFR (MDRD) Af Amer 55 L, Est GFR (MDRD) Non-Af 45 L, BUN/Creatinine Ratio 25.6 H, Glucose 68 L, Calcium 8.5, Total Bilirubin 0.30, AST 19, ALT 18, Alkaline Phosphatase 65, Total Protein 6.2 L, Albumin 2.5 L, Globulin 3.7, Albumin/Globulin Ratio 0.7 L 03/08/24 06:25: POC Glucose 68 L Physical Exam Narrative Physical Examination: General: Awake, alert, oriented x 3 and cooperative, seated upright in the PCU bed, notes feeling well, eager for discharge. Skin: Normal color, normal turgor, no icterus, no cyanosis except occasional stage ecchymoses, occasional abrasion. HEENT: AT/NC, EOMI, PERRLA, MMM. Lungs: Diminished, greater bases, no evidence of any distress, no rales, ronchi or wheezing. Heart: Regular rate and rhythm; no gallop, rub audible. Abdomen: Soft, NTTP, ND, normal BS. Extremities: No cyanosis, no clubbing, no marked peripheral edema. Neurological: Patient awake, alert, oriented as noted, cognitive function intact; pupils equally reactive to light and accommodation, cranial nerves gross normal, status post DVA with chronic left-sided deficits unchanged primarily flaccidity left upper extremity, able to move left lower extremity, mild left-sided facial droop, strength improving but remains moderately to severely globally decreased. Psychiatric: Affect appears more interactive, no acute evidence of depressive or anxiety feelings. Assessment & Plan Assessment/Plan (1) Generalized weakness: (2) COVID-19 virus infection: PLAN: Plan The patient is an 83 y/o M w/ PMHx: HTN, HLD, CKD stage IIIb, Hx CVA with chronic left-sided deficits, Diabetes mellitus type II with chronic neuropathy, PAF, Chronic normocytic anemia, BPH with obstructive pathology, Parkinson's disease, Anxiety and Depression who presents to the [facility] ED on 03/04/24 with history of increasing weakness, malaise, debility with recent COVID diagnosis on Tuesday progressively declining living in assisted living with inability to care for himself at that level of care. #1. Acute on chronic generalized weakness and debility w/ Adult FTT secondary to Acute COVID-19 infection complicated by underlying comorbidities including history of CVA with chronic left-sided hemiplegia: Patient noted to medical surgical status, patient remained stable on room air with no oxygenation needs, as needed albuterol, given stability with no oxygenation requirements deferred steroids and antiviral regimen, PT/OT/case management for skilled facility placement. From discussion with case management/social work may be able to transition to assisted living with skilled therapies in that setting given the type of assisted living he is in but clarifying. If this is the case may be able to discharge today. #2. Severe hypokalemia: Admission potassium 3.3, decreased further down to 2.6, supplementation administered, 03/06/2024 potassium normalized to 3.6->03/07/24 K+ 3.1 with additional supplementation given, magnesium level was assessed and noted to be normal. Concurrently continue on scheduled daily supplementation. 03/08/2024 potassium 3.5. #3. History CVA: Patient with residual left-sided hemiplegia, complicates presentation, continued on Plavix, hypertensive regimen, diabetic regimen with adjustments, not on statin therapy secondary to myalgias. #4. Hypertension: Continue home regimen including amlodipine, hydralazine, Lasix with hold parameters as needed, PRN hydralazine. #5. Anxiety and depression: We will continue patient on sertraline regimen. #6. Diabetes mellitus type II with chronic neuropathy: Hold oral home regimen, continue home insulin regimen, ADA diet, accu checks w/ ISS, continue home gabapentin regimen. #7. PAF: Continued on patient home amiodarone regimen, not chronically anticoagulated secondary to significant anemia history as well as elevated fall risk. #8. Chronic Kidney Disease Stage III B: Admission BUN/Cr 71/2.07, GFR 33, baseline renal function 1.5-1.8 primarily, 03/06/2024 BUN/creatinine 53/1.69, GFR 41-> 03/08/2024 BUN/creatinine 40/1.56, GFR 45, improved, repeat BMP in AM. #9. Hyperlipidemia: Not on statin therapy secondary to intolerance. #10. Chronic normocytic anemia: Admission: 11.2, MCV 92.1, baseline hemoglobin more recently appears primarily 9-10, 03/08/2024 hemoglobin 9.9, stable. #11. Parkinson's disease: Complicates presentation, increases fall risk, we will continue patient on Mirapex regimen, PT/OT/case management consulted as noted. #12. Chronic urinary incontinence: We will continue patient home oxybutynin regimen. #13. BPH with obstructive pathology: Continued on alpha-wilmer, monitor for any further symptoms #14. DVT prophylaxis: Heparin. #15. CODE status: Full Code. Charges/Coding Visit Charges Inpatient E&M: 15644 Subs Hosp L2
[2024-03-08 08:18] LABS: Bedside Glucose 127 mg/dL (74-106)
--- NOTE | 2024-03-08 09:16 | CASEMGMT ---
Discharge Planning Per Estefania @ [facility], pt may return when medically ready. SW updated. Rizwana Hahn DC Planning Asst.
[2024-03-08] MEDS: amLODIPine 10 MG Tablet PO (09:42)
[2024-03-08] MEDS: Heparin Injection (Vial) 5,000 UNIT/ML VIAL 5000 UNIT SC (09:42)
[2024-03-08] MEDS: Tolterodine Tartrate 4 MG CAP.SA PO (09:43)
[2024-03-08] MEDS: guaiFENesin/D-Methorphan TAB.SR.12H 1 TABLET PO (09:43)
[2024-03-08] MEDS: Furosemide 40 MG Tablet PO (09:43)
[2024-03-08] MEDS: Polyethylene Glycol 3350 17 GM PACKET PO (09:43)
[2024-03-08] MEDS: Clopidogrel Bisulfate 75 MG Tablet PO (09:43)
[2024-03-08] MEDS: Amiodarone 200 MG Tablet 100 MG PO (09:43)
[2024-03-08 09:58] LABS: Bedside Glucose 235 mg/dL (74-106)
--- NOTE | 2024-03-08 10:10 | CASEMGMT ---
Discharge Planning A list of?HH providers including quality and resource use data and consistent with the patient's preferred geographic region, medical needs, and insurance network was created in [employer] Guide.? This list was provided to the SW. Rizwana Hahn Discharge Planning Asst.
[2024-03-08] MEDS: Potassium Chloride Oral Tablet 20 MEQ PO (10:13)
--- NOTE | 2024-03-08 10:54 | CASEMGMT ---
Social Work SW spoke w/Rizwana, d/c planning rn, she spoke vernell/[facility] and they can take pt back. SW called to let her know. SW asked about home health, she is open to home health care for pt. She does not want whatever agency the last time he had it however, she states it was three years ago after pt had a stroke. SW reviewed the SW notes from prior hospital stays, pt had [facility]. SW explained will follow up w/[facility] to see if they have their own home health. SW called [facility], they do not have their own home health. SW called back, reviewed the home care agencies with star ratings over the phone, explained how the referral process works. She would like referrals made just down the list in star order. SW explained will let her know once we have an accepting agency. SW spoke with d/c assistant infant toddler teacher Rizwana who will make the referrals. SW did also ask about pharmacy, they use [facility] in [place]. As per pt is not normally on oxygen at the [place] . SW let know we will be testing pt to make sure he does not need home oxygen. states understanding. SW will continue to follow. ELOY Lazo
--- NOTE | 2024-03-08 11:07 | DCINST_ITS ---
Discharge Instructions Diet Discharge Diet: Low fat / Low cholesterol and 2000 Calorie Control Diet DC O2, CPAP, BIPAP needs Home O2 Discharge instructions: No Dressing / Incision Discharge Activity: - (Encourage continued routine activity. Avoid > moderate activity until re-assessed per your primary care. Follow COVID precautions outlined.) May resume sexual activity in: 10-14 days Weight Bearing Status: Weight bearing as tolerated Dressing / Incision Call your doctor if you observe: Fever of 101 or Higher, Inability to urinate, Shortness of breath, Dizziness, Swelling in the ankles, Chest pain, Increased palpitations (irregular heartbeat), Calf discomfort and Uncontrolled pain Follow Up Care Test Results: Test results from this visit will be discussed in further detail at your follow- up appointment, if applicable. Discharge Plan Admission Admit Date/Time: 03/07/24 14:27 Primary Reason for Your Visit: Adult FTT, COVID Illness, Hypokalemia Attending Provider: Johana Archuleta Primary Care Provider: Jennifer Watt Consulting Providers: Shon Kaufman; Anai Sanchez Instructions Patient Instructions: Coronavirus Disease 2019 (COVID-19): Caring for Yourself or Others, Infection Preventing Spread Additional Instructions / Restrictions: DISCHARGE INSTRUCTIONS/INFORMATION: #1. Acute on chronic generalized weakness and debility w/ Adult FTT secondary to Acute COVID-19 infection complicated by underlying comorbidities including history of CVA with chronic left-sided hemiplegia: --Remained stable on room air with no oxygenation needs thus deferred steroids and antiviral regimen, ----Encourage continued ongoing out of bed to chair with all meals. --Continue physician and occupational therapies. --Encourage continued incentive spirometry activities with 10x/hr from waking to just before dinner for at least the next 2 weeks. --Maintain continued COVID precautions through 03/08/24 and then patient may transition into communal activities BUT must continue to wear a mask for an additional 5 days. #2. Hypokalemia: --Admission potassium 3.3, decreased further down to 2.6, supplementation administered, 03/06/2024 potassium normalized to 3.6->03/07/24 K+ 3.1 with additional supplementation given, magnesium level was assessed and noted to be normal. --Discharged on continued daily potassium supplementation with 03/08/2024 potassium 3.5. --The potassium supplementation level should be rechecked with follow-up basic metabolic panel in 3-5 days and if needed could certainly alter chronic potassium supplementation. Discharge Orders/Prescriptions Prescriptions: Continued amiodarone 200 mg tablet 100 mg PO DAILY Qty: 45 3RF bisacodyl 10 mg suppository 10 mg DE QDAY PRN (Reason: constipation) nutritional supplements Powder 1 ea PO BID Rx Instructions: Sanjeev Mucinex DM 30-600 mg tablet extended release 12 hr 1 tab PO Q12H polyethylene glycol Powder See Rx Instructions .ROUTE QDAY Rx Instructions: Mix 17 GM in 8 oz of water daily; Senna Plus 8.6-50 mg capsule 1 tab-cap PO BID PRN (Reason: constipation) latanoprost 0.005 % drops 1 drp EACH EYE .COMPLEX Patient Comments: M-W- Rx Instructions: 1 drp into Each EYE mwf; @hs oxybutynin chloride 15 mg tablet extended release 24hr 15 mg PO DAILY potassium chloride 20 mEq Tablet,Er Particles/Crystals 20 meq PO DAILYCM 30 Days Qty: 30 0RF acetaminophen 500 mg Tablet 1,000 mg PO Q8 Qty: 0 0RF cyanocobalamin (vitamin B-12) 1,000 mcg/mL Solution 1,000 mcg IM QMONTH Qty: 0 0RF (DME) Handicap Placard See Rx Instructions .Route .MEDSUPPLY Qty: 1 0RF Rx Instructions: Length of time: 5 years (DME) pen needle, diabetic [BD Sanaz 2nd Gen Pen Needle] 32 gauge x 5/32 needle See Rx Instructions .ROUTE .MEDSUPPLY Qty: 50 2RF Rx Instructions: use once daily to adminster insulin as directed. sertraline 50 mg tablet 50 mg PO QHS Qty: 90 3RF gabapentin 100 mg capsule 100 mg PO BID Qty: 180 3RF gabapentin 300 mg capsule 300 mg PO 2100 Qty: 90 3RF clopidogrel [Plavix] 75 mg tablet 75 mg PO DAILY Qty: 90 3RF furosemide 40 mg tablet 40 mg PO DAILY Qty: 90 3RF hydralazine 100 mg tablet 100 mg PO TID Qty: 270 3RF pramipexole 0.125 mg tablet 0.125 mg PO QHS Qty: 90 3RF amlodipine 10 mg tablet 10 mg PO DAILY Qty: 90 3RF doxazosin 4 mg tablet 4 mg PO QHS Qty: 90 3RF insulin glargine [Lantus Solostar U-100 Insulin] 100 unit/mL (3 mL) insulin pen 18 unit subcut QAM Qty: 15 3RF Referrals / Follow Up: Jennifer Watt MD [Primary Care Provider] - (Follow-up within 3-5 days to review admission.) Disposition Disposition (needs filled in before D/C Order can be placed): Assisted Living
--- NOTE | 2024-03-08 11:09 | PCM.DC.SUM ---
Providers Date of Admission: 03/07/24 Date of Discharge: 03/08/24 Primary Care Physician: Dr. Jennifer Watt MD Reason For Visit: DEBILITY Diagnosis Discharge Diagnosis (1) Generalized weakness: Status: Acute Code(s): R53.1 - Weakness (2) COVID-19 virus infection: Status: Acute Code(s): U07.1 - COVID-19 Plan DISCHARGE DIAGNOSES: #1. Acute on chronic generalized weakness and debility w/ Adult FTT secondary to Acute COVID-19 infection complicated by underlying comorbidities including history of CVA with chronic left-sided hemiplegia #2. Hypokalemia, resolved #3. History CVA with residual left-sided hemiplegia #4. Hypertension #5. Anxiety and depression #6. Diabetes mellitus type II with chronic neuropathy #7. PAF #8. Chronic Kidney Disease Stage IIIb #9. Hyperlipidemia #10. Chronic normocytic anemia #11. Parkinson's disease #12. Chronic urinary incontinence #13. BPH with obstructive pathology #14. CODE status: Full Code. Medications at Discharge Home Medications Handicap Placard #1 ea 02/12/21 latanoprost 0.005 % eye drops 1 drp EACH EYE .COMPLEX eyes 02/24/22 pen needle, diabetic 32 gauge x 5/32 (BD Sanaz 2nd Gen Pen Needle) #50 ea 06/17/22 sertraline 50 mg tablet 50 mg PO QHS mood #90 tabs 02/23/23 gabapentin 100 mg capsule 100 mg PO BID pain #180 caps 05/04/23 gabapentin 300 mg capsule 300 mg PO 2100 pain #90 caps 05/04/23 potassium chloride 20 mEq tablet,extended release(part/cryst) 20 meq PO DAILYCM supplement 30 days #30 tabs 08/01/23 clopidogrel 75 mg tablet (Plavix) 75 mg PO DAILY blood thinner #90 tabs 08/12/23 amiodarone 200 mg tablet 100 mg (1/2 x 200 mg) PO DAILY BP #45 tabs 08/16/23 furosemide 40 mg tablet 40 mg PO DAILY Fluid retention #90 TABLETS 08/22/23 hydralazine 100 mg tablet 100 mg PO TID BP #270 tabs 09/22/23 oxybutynin chloride 15 mg tablet,extended release 24 hr 15 mg PO DAILY bladder 10/28/23 pramipexole 0.125 mg tablet 0.125 mg PO QHS parkinsons #90 tabs 11/08/23 acetaminophen 500 mg tablet 1,000 mg (2 x 500 mg) PO Q8 #0 tabs 01/09/24 cyanocobalamin (vitamin B-12) 1,000 mcg/mL injection solution 1,000 mcg IM QMONTH #0 mL 01/09/24 bisacodyl 10 mg rectal suppository 10 mg NH QDAY PRN constipation 01/26/24 dextromethorphan-guaifenesin 30 mg-600 mg tablet extended [id number] hr (Mucinex DM) 1 tab PO Q12H 01/26/24 nutritional supplements 1 ea PO BID wound healing 01/26/24 polyethylene glycol See Rx Instructions .Route QDAY 01/26/24 sennosides 8.6 mg-docusate sodium 50 mg capsule (Senna Plus) 1 tab-cap PO BID PRN constipation 01/26/24 amlodipine 10 mg tablet 10 mg PO DAILY #90 tabs 02/14/24 doxazosin 4 mg tablet 4 mg PO QHS Urinary Retention #90 tabs 02/27/24 insulin glargine 100 unit/mL (3 mL) subcutaneous pen (Lantus Solostar U-100 Insulin) 18 unit (0.18 mL) subcut QAM #15 mL 03/05/24 Hospital Course Operations None Procedures EKG Summary of Care Provided Minutes Spent on Discharge: 35 Hospital Course: The patient is an 83 y/o M w/ PMHx: HTN, HLD, CKD stage IIIb, Hx CVA with chronic left-sided deficits, Diabetes mellitus type II with chronic neuropathy, PAF, Chronic normocytic anemia, BPH with obstructive pathology, Parkinson's disease, Anxiety and Depression who presented to the [facility] ED on 03/04/24 with history of increasing weakness, malaise, debility with recent COVID diagnosis on Tuesday progressively declining living in assisted living with inability to care for himself at that level of care. Patient admitted to medical surgical status, remained stable on room air with no oxygenation needs, as needed albuterol, given stability with no oxygenation requirements deferred steroids and antiviral regimen. Admission potassium 3.3, decreased further down to 2.6, supplementation administered, 03/06/2024 potassium normalized to 3.6->03/07/24 K+ 3.1 with additional supplementation given, magnesium level was assessed and noted to be normal. Concurrently continued on scheduled daily supplementation. 03/08/2024 potassium 3.5. Patient with residual left-sided hemiplegia, complicates presentation, continued on Plavix, hypertensive regimen, diabetic regimen, not on statin therapy secondary to myalgias. Admission BUN/Cr 71/2.07, GFR 33, baseline renal function 1.5-1.8 primarily, 03/06/2024 BUN/creatinine 53/1.69, GFR 41-> 03/08/2024 BUN/creatinine 40/1.56, GFR 45, improved. Admission: 11.2, MCV 92.1, baseline hemoglobin more recently appears primarily 9-10, 03/08/2024 hemoglobin 9.9, stable. Given clinical stability patient transitioned to his AL facility with planned ongoing skilled therapy at their facility with recommended follow-up early with his PCP with follow-up BMP to reassess also his potassium level. Additionally, recommended continuation of COVID precautions to completion with then transition to 5 additional days of masking. Weight / BMI Weight Weight: 172 lb 2.896 oz Body Mass Index (BMI) 23.3 ABG / Lab / Microbiology Data 03/08/24 06:20 03/08/24 06:20 Laboratory: Laboratory Results - last 24 hr 03/07/24 12:24: POC Glucose 235 H 03/07/24 16:39: POC Glucose 137 H 03/07/24 22:41: POC Glucose 208 H 03/08/24 06:20: WBC 10.7, RBC 3.33 L, Hgb 9.9 L, Hct 30.8 L, MCV 92.5, MCH 29.7, MCHC 32.1, RDW Std Deviation 48.4 H, RDW Coeff of Cait 14.2, Plt Count 269, MPV 10.4, Immature Gran % (Auto) 0.800, Neut % (Auto) 77.3 H, Lymph % (Auto) 12.1 L, [place] % (Auto) 7.5, Eos % (Auto) 2.1, Baso % (Auto) 0.2, Absolute Neuts (auto) 8.3 H, Absolute Lymphs (auto) 1.30, Nucleated RBC % 0, Sodium 137, Potassium 3.5, Chloride 102, Carbon Dioxide 30.0, Anion Gap 5, BUN 40 H, Creatinine 1.56 H, Estim Creat Clear Calc 38.69, Est GFR (MDRD) Af Amer 55 L, Est GFR (MDRD) Non-Af 45 L, BUN/Creatinine Ratio 25.6 H, Glucose 68 L, Calcium 8.5, Total Bilirubin 0.30, AST 19, ALT 18, Alkaline Phosphatase 65, Total Protein 6.2 L, Albumin 2.5 L, Globulin 3.7, Albumin/Globulin Ratio 0.7 L 03/08/24 06:25: POC Glucose 68 L 03/08/24 07:59: POC Glucose 127 H 03/08/24 11:15: POC Glucose 257 H D/C Instructions Discharge Diet: Low fat / Low cholesterol and 2000 Calorie Control Diet May resume sexual activity in: 10-14 days Weight Bearing Status: Weight bearing as tolerated Call your doctor if you observe: Fever of 101 or Higher, Inability to urinate, Shortness of breath, Dizziness, Swelling in the ankles, Chest pain, Increased palpitations (irregular heartbeat), Calf discomfort and Uncontrolled pain DC O2, CPAP, BIPAP Needs RN Home O2 Qualification: Home O2 Qualification: Is the patient on home oxygen No 03/08/24 10:53 Home O2 Qualification: AT REST 1- Pulse Ox at rest 95 03/08/24 10:53 Home O2 Qualification: WITH AMBULATION 1- Pulse Ox with ambulation 95 03/08/24 10:53 1- Oxygen Flow Rate with 0 03/08/24 10:53 ambulation Home O2 Discharge instructions: No Meaningful Use Info Meaningful Use Meaningful Use Diagnoses (Choose all that apply): None applicable Ischemic Stroke Statin Dosing Therapy Reference: STATIN DOSE THERAPY REFERENCE: * Patients > 75 years receive moderate or high dose statin therapy. * Patients 75 years or YOUNGER should receive HIGH intensity statin dose unless contraindicated. You will be required to document reason for non-treatment if statin daily dose does not meet guidelines. HIGH DOSE STATIN THERAPY DAILY Atorvastatin > than or = to 40 mg Rosuvastatin > than or = to 20 mg Amlodipine + Atorvastatin > than or = to 2.5/40 mg Ezetimibe + Simvastatin 10/80 mg Simvastatin 80mg Discharge Plan Admission Admit Date/Time: 03/07/24 14:27 Primary Reason for Your Visit: Adult FTT, COVID Illness, Hypokalemia Attending Provider: Johana Archuleta Primary Care Provider: Jennifer Watt Consulting Providers: Shon Kaufman; Anai Sanchez Instructions Patient Instructions: Coronavirus Disease 2019 (COVID-19): Caring for Yourself or Others, Infection Preventing Spread Additional Instructions / Restrictions: DISCHARGE INSTRUCTIONS/INFORMATION: #1. Acute on chronic generalized weakness and debility w/ Adult FTT secondary to Acute COVID-19 infection complicated by underlying comorbidities including history of CVA with chronic left-sided hemiplegia: --Remained stable on room air with no oxygenation needs thus deferred steroids and antiviral regimen, ----Encourage continued ongoing out of bed to chair with all meals. --Continue physician and occupational therapies. --Encourage continued incentive spirometry activities with 10x/hr from waking to just before dinner for at least the next 2 weeks. --Maintain continued COVID precautions through 03/08/24 and then patient may transition into communal activities BUT must continue to wear a mask for an additional 5 days. --Encouraged continued fall precautions given higher risk s/p CVA with chronic debility. #2. Hypokalemia: --Admission potassium 3.3, decreased further down to 2.6, supplementation administered, 03/06/2024 potassium normalized to 3.6->03/07/24 K+ 3.1 with additional supplementation given, magnesium level was assessed and noted to be normal. --Discharged on continued daily potassium supplementation with 03/08/2024 potassium 3.5. --The potassium supplementation level should be rechecked with follow-up basic metabolic panel in 3-5 days and if needed could certainly alter chronic potassium supplementation. Discharge Orders/Prescriptions Prescriptions: Continued amiodarone 200 mg tablet 100 mg PO DAILY Qty: 45 3RF bisacodyl 10 mg suppository 10 mg NH QDAY PRN (Reason: constipation) nutritional supplements Powder 1 ea PO BID Rx Instructions: Sanjeev Mucinex DM 30-600 mg tablet extended release 12 hr 1 tab PO Q12H polyethylene glycol Powder See Rx Instructions .ROUTE QDAY Rx Instructions: Mix 17 GM in 8 oz of water daily; Senna Plus 8.6-50 mg capsule 1 tab-cap PO BID PRN (Reason: constipation) latanoprost 0.005 % drops 1 drp EACH EYE .COMPLEX Patient Comments: M-W-F Rx Instructions: 1 drp into Each EYE mwf; @hs oxybutynin chloride 15 mg tablet extended release 24hr 15 mg PO DAILY potassium chloride 20 mEq Tablet,Er Particles/Crystals 20 meq PO DAILYCM 30 Days Qty: 30 0RF acetaminophen 500 mg Tablet 1,000 mg PO Q8 Qty: 0 0RF cyanocobalamin (vitamin B-12) 1,000 mcg/mL Solution 1,000 mcg IM QMONTH Qty: 0 0RF (DME) Handicap Placard See Rx Instructions .Route .MEDSUPPLY Qty: 1 0RF Rx Instructions: Length of time: 5 years (DME) pen needle, diabetic [BD Sanaz 2nd Gen Pen Needle] 32 gauge x / needle See Rx Instructions .ROUTE .MEDSUPPLY Qty: 50 2RF Rx Instructions: use once daily to adminster insulin as directed. sertraline 50 mg tablet 50 mg PO QHS Qty: 90 3RF gabapentin 100 mg capsule 100 mg PO BID Qty: 180 3RF gabapentin 300 mg capsule 300 mg PO 2100 Qty: 90 3RF clopidogrel [Plavix] 75 mg tablet 75 mg PO DAILY Qty: 90 3RF furosemide 40 mg tablet 40 mg PO DAILY Qty: 90 3RF hydralazine 100 mg tablet 100 mg PO TID Qty: 270 3RF pramipexole 0.125 mg tablet 0.125 mg PO QHS Qty: 90 3RF amlodipine 10 mg tablet 10 mg PO DAILY Qty: 90 3RF doxazosin 4 mg tablet 4 mg PO QHS Qty: 90 3RF insulin glargine [Lantus Solostar U-100 Insulin] 100 unit/mL (3 mL) insulin pen 18 unit subcut QAM Qty: 15 3RF Referrals / Follow Up: Jennifer Watt MD [Primary Care Provider] - (Follow-up within 3-5 days to review admission.) Disposition Disposition (needs filled in before D/C Order can be placed): Assisted Living Charges/Coding Visit Charges Inpatient E&M: 65630 Disch Hosp >30min
--- NOTE | 2024-03-08 11:15 | CASEMGMT ---
Addendum entered by Rizwana Hahn 03/08/24 12:52: [facility] accepted with soc next week. [facility] declined d/t staff shortage. Pts wishes to proceed with [facility]. Luke updated. Rizwana Hahn DC Planning Asst. Original Note: Discharge Planning HH referral sent to [facility] and [facility]. Rizwana Hahn DC Planning Asst.
[2024-03-08 11:33] LABS: Bedside Glucose 257 mg/dL (74-106)
[2024-03-08] MEDS: Insulin Glargine-YFGN 100 UNIT/ML Pen 24 UNIT SC (12:24)
[2024-03-08] MEDS: Insulin Lispro 100 UNIT/ML INSULN.PEN SC (12:24)
--- NOTE | 2024-03-08 12:30 | CASEMGMT ---
Social Work Pt is set up w/[facility] to start next week. business continuity planner Rizwana set up a 1:30pm wheelchair van to take pt back. SW called pt's , let her know that [facility] will see pt, will start next week. SW let know also that pt is set up to leave here about 1:30pm to go home via wheelchair van, also let her know they may get a bill for this. states understanding. No further needs anticipated at this time. ELOY Lazo
--- NOTE | 2024-03-08 12:33 | CASEMGMT ---
Discharge Planning Discharge Instructions and transport time faxed to [facility]. Physicians will transport patient by wheelchair at 1:30p. Nursing and SW updated. SW will update pts . Rizwana Hahn DC Planning Asst.
== END 2024-03-08 13:53 | disposition home or self-care (01) | DRG 178 ==
LOC: ED 21:35 → PCU 23:38
PROVIDERS: Internal Medicine; Nurse Practitioner; Admitting Provider Family Medicine; Emergency Provider Surgery; PCP Internal Medicine; Visit Provider Family Medicine
DX: U07.1 COVID-19 (principal); I69.354 Hemiplegia and hemiparesis following cerebral infarction affecting left non-dominant side; N13.8 Other obstructive and reflux uropathy; R62.7 Adult failure to thrive; E11.22 Type 2 diabetes mellitus with diabetic chronic kidney disease; D64.9 Anemia, unspecified; G20.A1 Parkinson's disease without dyskinesia, without mention of fluctuations; I48.0 Paroxysmal atrial fibrillation; E86.0 Dehydration; N18.32 Chronic kidney disease, stage 3b; I12.9 Hypertensive chronic kidney disease with stage 1 through stage 4 chronic kidney disease, or unspecified chronic kidney disease; F32.A Depression, unspecified; E11.40 Type 2 diabetes mellitus with diabetic neuropathy, unspecified; E11.51 Type 2 diabetes mellitus with diabetic peripheral angiopathy without gangrene; E11.65 Type 2 diabetes mellitus with hyperglycemia; E78.5 Hyperlipidemia, unspecified; G25.81 Restless legs syndrome; G47.33 Obstructive sleep apnea (adult) (pediatric); M19.90 Unspecified osteoarthritis, unspecified site; I25.10 Atherosclerotic heart disease of native coronary artery without angina pectoris; Z79.4 Long term (current) use of insulin; F41.9 Anxiety disorder, unspecified; E87.6 Hypokalemia; R32 Unspecified urinary incontinence; N40.1 Benign prostatic hyperplasia with lower urinary tract symptoms; Z79.02 Long term (current) use of antithrombotics/antiplatelets; Z79.899 Other long term (current) drug therapy; Z68.23 Body mass index [BMI] 23.0-23.9, adult
CPT/HCPCS: 36415; 71045; 80048; 80053; 82009; 82962; 83735; 83880; 85025; 93005; 94640; 94668; 97116; 97162; 97166; 97530; 97535; 97802; 99252; 99285; A4216; G0463

== ENCOUNTER 2024-03-09 02:37 | Emergency (ER) | payer MEDICARE, SELFPAY ==
[2024-03-09 02:37] VITALS: BP 112/53; PULSE 89; RESP 19; TEMP 37.9; O2SAT 91; BMI 24.2
[2024-03-09 02:44] VITALS: BP 112/53; PULSE 89; RESP 19; TEMP 37.9; O2SAT 91
--- NOTE | 2024-03-09 02:58 | EKG12_ITS ---
Test Reason : GEN ILL Blood Pressure : */* mmHG Vent. Rate : 85 BPM Atrial Rate : 85 BPM P-R Int : 150 ms QRS Dur : 84 ms QT Int : 440 ms P-R-T Axes : 40 32 48 degrees QTcB Int : 523 ms Normal sinus rhythm Prolonged QT Abnormal ECG Confirmed by LOGAN STRONG, DWAYNE ([id number]), editor sound AP NUNEZ ([id number]) on 03/09/2024 9:47:50 AM Referred By: Confirmed By: DWAYNE FORD MD
--- NOTE | 2024-03-09 02:58 | RAD_ITS ---
INDICATION: fever EXAMINATION/TECHNIQUE: X-RAY - XR Chest 1 View COMPARISON: 03/04/2024. FINDINGS: LINES/DEVICES: None. LUNGS: Stable bibasilar atelectasis versus scarring. No evidence of a pleural effusion or a pneumothorax. Stable elevation of the right hemidiaphragm. MEDIASTINUM AND CARDIOVASCULAR STRUCTURES: Cardiac silhouette is normal in size and contour. Mediastinum is unremarkable. BONES AND SOFT TISSUES: No acute abnormality. RAD/Chest 1 View (Portable) IMPRESSION: Stable bibasilar atelectasis versus scarring. No evidence of an infiltrate. Electronically Signed: Butch Estrada DO at 5:14 EST ,
--- NOTE | 2024-03-09 02:59 | EX.ED.DYSGE1 ---
HPI History of Present Illness Chief Complaint: General Illness Informant: patient and spouse/S.O. Onset/Context/Timing Onset: Today Context: Gradual Onset Timing: Continuous Current Severity: Mild Maximum Severity: Mild Narrative Narrative: 83-year-old male extensive past medical history of diabetes, hypertension, CHF, A-fib and prior stroke with left-sided hemiparesis. Diagnosed with COVID on 02/28/24 was hospitalized 1222 and discharged yesterday on 1226. Developed a fever of 103 today at the extended-care facility currently resides at [facility]. Reportedly had hypoxia there was send in the emergency department. He was treated with Tylenol around 1 AM according to his who is at bedside. Prior similar symptoms: Yes Recent Illness/Hospitalization: Yes PFSH PFS Medical History Diabetes mellitus, type 2 Osteoarthritis Uncontrolled hypertension Closed displaced fracture of left femoral neck History of CHF (congestive heart failure) Obstructive sleep apnea Neuropathic pain Physical debility Fall Current use of insulin Back pain due to injury Restless legs Syncope Kidney stones PAF (paroxysmal atrial fibrillation) CHF (congestive heart failure) Anemia Weakness Wears glasses Depression Rash Insulin dependent diabetes mellitus Walker as ambulation aid Prostate disease Low iron Restless legs Stroke/cerebrovascular accident Dietary restriction Non-smoker BiPAP (biphasic positive airway pressure) dependence History of edema History of echocardiogram Cardiology follow-up encounter BPH (benign prostatic hyperplasia) Congestive heart failure Pneumonia Incontinence Limb weakness Unsteadiness Chronic anemia Hypertension Coronary artery disease Right renal artery stenosis Fatigue Ventricular tachycardia seen on transit planning director (02/20/21) Peripheral vascular occlusive disease Type 2 diabetes mellitus Hyperlipidemia Essential hypertension History of CVA (cerebrovascular accident) (12/2020) Obstructive Sleep Apnea-Hypopnea Syndrome Absent pedal pulses Skin lesion of face Normocytic normochromic anemia Depression Dysphagia Proteinuria due to type 2 diabetes mellitus Facial droop due to acute stroke Acute left-sided muscle weakness Osteoarthritis Right pontine CVA Recurrent inguinal hernia of right side without obstruction or gangrene Home Medications ?Medication ?Instructions ?Recorded ?Last Taken ?Type Handicap Placard #1 ea 02/12/21 Unknown Rx latanoprost 0.005 % eye drops 1 drp EACH EYE .COMPLEX eyes 02/24/22 12/14/23 History pen needle, diabetic 32 gauge x #50 ea 06/17/22 Unknown Rx 5/32 (BD Sanaz 2nd Gen Pen Needle) sertraline 50 mg tablet 50 mg PO QHS mood #90 tabs 02/23/23 12/14/23 Rx gabapentin 100 mg capsule 100 mg PO BID pain #180 caps 05/04/23 12/15/23 Rx gabapentin 300 mg capsule 300 mg PO 2100 pain #90 caps 05/04/23 12/14/23 Rx potassium chloride 20 mEq 20 meq PO DAILYCM supplement 30 08/01/23 12/14/23 Rx tablet,extended release(part/cryst) days #30 tabs clopidogrel 75 mg tablet (Plavix) 75 mg PO DAILY blood thinner #90 08/12/23 12/15/23 Rx tabs amiodarone 200 mg tablet 100 mg (1/2 x 200 mg) PO DAILY BP 08/16/23 Unknown Rx #45 tabs furosemide 40 mg tablet 40 mg PO DAILY Fluid retention #90 08/22/23 12/14/23 Rx TABLETS hydralazine 100 mg tablet 100 mg PO TID BP #270 tabs 09/22/23 12/15/23 Rx oxybutynin chloride 15 mg 15 mg PO DAILY bladder 10/28/23 12/15/23 History tablet,extended release 24 hr pramipexole 0.125 mg tablet 0.125 mg PO QHS parkinsons #90 tabs 11/08/23 12/14/23 Rx cyanocobalamin (vitamin B-12) 1,000 mcg IM QMONTH #0 mL 01/09/24 02/20/24 Rx 1,000 mcg/mL injection solution bisacodyl 10 mg rectal suppository 10 mg NH QDAY PRN constipation 01/26/24 02/29/24 History dextromethorphan-guaifenesin 30 1 tab PO Q12H 01/26/24 03/04/24 History mg-600 mg tablet extended [id number] hr (Mucinex DM) nutritional supplements 1 ea PO BID wound healing 01/26/24 03/04/24 History polyethylene glycol See Rx Instructions .Route QDAY 01/26/24 03/04/24 History sennosides 8.6 mg-docusate sodium 1 tab-cap PO DAILY constipation 01/26/24 Unknown History 50 mg capsule (Senna Plus) amlodipine 10 mg tablet 10 mg PO DAILY #90 tabs 02/14/24 Unknown Rx doxazosin 4 mg tablet 4 mg PO QHS Urinary Retention #90 02/27/24 Unknown Rx tabs insulin glargine 100 unit/mL (3 18 unit (0.18 mL) subcut QAM #15 mL 03/05/24 Unknown Rx mL) subcutaneous pen (Lantus Solostar U-100 Insulin) acetaminophen 500 mg tablet 1,000 mg PO Q8 PRN fever or pain 03/09/24 Unknown History ciprofloxacin HCl 500 mg tablet 500 mg PO BID uti 7 days #14 tabs 03/09/24 Unknown Rx (Cipro) Allergy/AdvReac Type Severity Reaction Status Date / Time meloxicam (From Mobic) Allergy Intermediate itching Verified 03/05/24 00:43 pravastatin (From Pravachol) AdvReac Mild myalgia Verified 03/05/24 00:43 cholestyramine AdvReac hypoglycemi Verified 03/05/24 00:43 a Family History Mother Hypertension Cancer Father Heart disease Diabetes Surgical History Status post hip hemiarthroplasty History of prostate surgery H/O transurethral resection of prostate (01/12/23) Hx of cystoscopy Hx of total knee arthroplasty History of hydrocelectomy History of cataract surgery History of lumbar laminectomy History of herniorrhaphy History of stent insertion of renal artery (08/05/21) Social History household members: spouse and other details: Abigail is his 's name housing: house number of children: 2 current occupational status: retired and other details: worked for [employer] prior to retiring leisure activities: other Smoking Status: Never smoker Electronic Cigarette Use: not used second hand exposure: No alcohol intake: former substance use type: does not use what type of physical activity do you participate in: walking frequency: 1-2 times per week inés/hinduism: None seatbelt use: always ROS ROS ED ROS Narrative Fever. Recent COVID. Constitutional Constitutional ED: Reports fever(s) Eyes Eyes: Denies blurry vision ENT ENT ED: Denies ear pain Cardiovascular Cardiovascular: Denies chest pain Respiratory/Chest Respiratory/Chest: Reports cough Gastrointestinal Gastrointestinal: Denies abdominal pain Genitourinary Genitourinary ED: Denies dysuria or hematuria Musculoskeletal Musculoskeletal: Denies arthralgias or back pain Integumentary Denies abscess Neurologic Neurologic: Denies headache(s) Psychiatric Psychiatric: Denies anxiety or depression Endocrine Endocrinology: Denies cold intolerance Hematologic/Lymphatic Hematologic/Lymphatic: Reports none Allergic/Immunologic Allergic/Immunologic ED: Denies mouth swelling, tongue swelling or urticaria EXAM Physical Exam Narrative Exam Narrative: Elderly male sitting upright in bed. seated in the room. Vital signs show a temperature of 100.3 orally. Blood pressure 112/53. Pulse ox 91% on room air no hypoxia. He is in no distress. He is awake and alert. He is answering questions. He does look dehydrated. H EENT exam pupils round reactive light. Very dry mucous membranes. Neck nontender no lymphadenopathy. Back nontender. No rashes or ulcerations. Lungs clear to auscultation bilaterally. Heart regular rhythm rate about 90 no murmur. Chest wall ribs nontender. Abdomen soft nontender. No peritoneal signs. He has flaccid paralysis of his left arm is very very weak in the left leg. But he has limited movement. He has normal strength in his right hand he can move his right leg. Neurologically he is awake. He is alert. His eyes are open. He is answering questions and following commands. Const Vital Signs: 03/09/24 02:37 03/09/24 02:37 03/09/24 02:44 Temperature 100.3 F H 100.3 F H Temperature Source Oral Oral Pulse Rate 89 89 Respiratory Rate 19 H 19 H Respiratory Effort Normal Non-Labored Respiratory Pattern Normal Blood Pressure 112/53 L 112/53 L Blood Pressure Mean 72 72 Pulse Ox 91 91 Oxygen Delivery Method Room Air Room Air 03/09/24 03:07 03/09/24 03:44 03/09/24 04:00 Temperature 98.5 F 98.5 F Temperature Source Oral Oral Pulse Rate 75 72 Respiratory Rate 17 18 Respiratory Effort Respiratory Pattern Blood Pressure 119/55 L 127/54 H Blood Pressure Mean 76 78 Pulse Ox 92 93 95 Oxygen Delivery Method Room Air Room Air Room Air 03/09/24 04:52 Temperature 98.5 F Temperature Source Pulse Rate 70 Respiratory Rate 18 Respiratory Effort Respiratory Pattern Blood Pressure 122/54 H Blood Pressure Mean 76 Pulse Ox 92 Oxygen Delivery Method Positive well nourished and well developed; Negative for cachectic, contractures or unkempt General Appearance ED: well developed; Negative for unkempt, cachectic, contractures, cyanotic, diaphoretic, NAD or pallor Nutritional Appearance: Negative for cachectic HEENT Reports dry mucous membranes Negative for trauma or tenderness Mouth ED: Yes dry mucous membranes Mouth: dry mucous membranes Eyes EOMs intact bilaterally General Eye ED: Negative for pale conjunctiva Neck no lymphadenopathy, supple and no JVD General: Negative for tenderness Chest Wall inspection of chest normal and palpation of chest normal Resp normal respiratory effort and clear to auscultation bilaterally Auscultation: Negative for rales, rhonchi or wheezes Cardio regular rate, regular rhythm, S1 normal heart sound, S2 normal heart sound and no murmurs GI normal to inspection, nondistended, normoactive bowel sounds, non-tender, non-distended and no masses Palpation: soft; Negative for tender, guarding or rebound tenderness present Back/Spine no CVA tenderness Extremity Negative for normal to inspection Extremity Narrative: Prior stroke. Left arm paralyzed. Left leg extremely weak. General Extremety ED: Negative for edema or tenderness General Extremity: Negative for edema Neuro oriented x3 and CN's II-XII intact bilaterally Neuro Narrative: Awake and alert. Answering questions following commands. Sensorium / Orientation: alert Motor Exam: strength abnormal; Negative for strength 5/5 throughout Psych mental status grossly normal Appearance: Negative for unkempt Attitude: No agitated Mood & Affect: Negative for depressed, anxious or tearful Skin no rashes or lesions noted and no wounds General Skin Exam: Negative for jaundice or pallor Lesions: No lesion noted Rashes: No rashes noted Trauma: Negative for abrasion Wounds: Negative for wounds noted MDM MDM MDM Narrative Medical decision making narrative: 83-year-old male recently hospitalized for COVID reported fever again today at 103 at the [facility]. Clinically looks dehydrated. Will undergo a septic workup. Be treated with a liter normal saline because clinically looks dehydrated. He was already given Tylenol 2 hours ago reported to [facility]. He will be reassessed. Repeat exam patient is doing well at 4:35 AM. I went over his test results of both he and his . He and his are both comfortable with him going back to the extended-care facility. I did speak to the [facility] staff and nurse there. Her biggest concern was that he had some hypoxia there his pulse ox has been in the low 90s here the entire time. There is no signs of an obvious pneumonia. Both the patient, his and both they understand that his blood and urine cultures will not be back for 24 to 48 hours. He will be discharged back to their facility. Given his leukocytosis, fever and white cells and bacteria in his urine I am to start him on Cipro 500 twice daily for 7 days. Prescription sent to her pharmacy. First dose given here in the emergency department. I discussed that with both patient and his . Prior to the patient being discharged nurses also found out that during his recent hospitalization he was not discharged to home with his CPAP which she supposed to be using at night. Hospital found the unit. And they are working on getting that back to the patient. History & Record Review Discussion w/independent historian: Patient and Family Additional record(s) reviewed:: Prior inpatient record, Prior outpatient record, Prior ED visit and Prior labs Lab Data Attestation: I reviewed the patient's lab results. Lab results narrative: CBC shows a white count 19.3. H&H 10.4 and 31. Platelets 312. White count is elevated compared to the last several in the computer. PT/INR of 13 and 1. PTT 33. Lactic acid is normal at 0.8. Electrolytes show a gap of 4. BUN 37 creatinine 1.72. Consistent with prior chemistry panels. Liver enzymes unremarkable. Glucose 103. COVID-positive which he has recently been diagnosed with. Flu and RSV negative. Urinalysis has 5-10 white cells. 3+ bacteria. No nitrates. Urine culture will be sent. Labs: Laboratory Results - last 24 hr 03/09/24 03/09/24 03:00 03:50 WBC 19.3 H RBC 3.44 L Hgb 10.4 L Hct 31.5 L MCV 91.6 MCH 30.2 MCHC 33.0 RDW Std Deviation 48.0 H RDW Coeff of Cait 14.4 Plt Count 312 MPV 10.8 Immature Gran % (Auto) 1.800 H Neut % (Auto) 86.1 H Lymph % (Auto) 7.0 L [place] % (Auto) 4.6 Eos % (Auto) 0.2 Baso % (Auto) 0.3 Absolute Neuts (auto) 16.6 H Absolute Lymphs (auto) 1.34 Nucleated RBC % 0 PT 13.5 INR 1.0 APTT 33.0 Sodium 137 Potassium 3.5 Chloride 101 Carbon Dioxide 32.0 Anion Gap 4 L BUN 37 H Creatinine 1.72 H Estim Creat Clear Calc 35.09 Est GFR (MDRD) Af Amer 49 L Est GFR (MDRD) Non-Af 40 L BUN/Creatinine Ratio 21.5 H Glucose 103 Lactic Acid 0.8 Calcium 8.4 L Total Bilirubin 0.50 AST 20 ALT 19 Alkaline Phosphatase 72 Total Protein 6.3 L Albumin 2.4 L Globulin 3.9 Albumin/Globulin Ratio 0.6 L Urine Color Yellow Urine Clarity Sl. Cloudy Urine pH 6.0 Ur Specific Eclectic 1.010 Urine Protein 100 H Urine Glucose (UA) Normal Urine Ketones Negative Urine Occult Blood 50 H Urine Nitrite Negative Urine Bilirubin Negative Urine Urobilinogen Normal Ur Leukocyte Esterase 500 H Urine RBC 0 SEEN Urine WBC 5-10 SEEN Ur Squamous Epith Cells 0 SEEN Urine Bacteria 3+ Urine Mucus 0 SEEN Radiography Chest X-Ray - ED: 1 View, Read by ED Physician, Normal, Heart, Lungs, Mediastinum, Bony Structures, No Acute Disease and Chronic Changes Diagnostic Testing: Clinical Impression(s) from Imaging Studies Chest X-Ray 03/09/24 02:58 IMPRESSION: Stable bibasilar atelectasis versus scarring. No evidence of an infiltrate. Electronically Signed: Butch Estrada DO at 5:14 EST Reading Location ID and State: [facility] / [place] Tel , Service support , Chest x-ray, portable, single view interpreted by myself shows normal cardiac silhouette. Elevated right hemidiaphragm. Atelectasis right base. No obvious pneumonia. No effusion. No significant change from a prior x-ray within the last week. Rhythm Strip Rhythm Strip: Sinus Rhythm Rate: 85 Ectopy: None EKG Initial EKG: Attestation: I personally reviewed and interpreted this EKG as follows: Interpretation: Sinus Rhythm and No Acute Injury Pattern Comments: Normal sinus rhythm rate 85 no acute abnormality. Discharge Plan Triage Chief Complaint: General Illness ED Provider: Miguel Siu Dx/Rx/DC Orders Clinical Impression: Fever, History of stroke, COVID, Leukocytosis, Acute UTI, History of diabetes mellitus, Chronic kidney disease Instructions: ED Fever Control (Adult) Prescriptions: New ciprofloxacin HCl [Cipro] 500 mg tablet 500 mg PO BID 7 Days Qty: 14 0RF No Action amiodarone 200 mg tablet 100 mg PO DAILY Qty: 45 3RF bisacodyl 10 mg suppository 10 mg NH QDAY PRN (Reason: constipation) nutritional supplements Powder 1 ea PO BID Rx Instructions: Sanejev Mucinex DM 30-600 mg tablet extended release 12 hr 1 tab PO Q12H polyethylene glycol Powder See Rx Instructions .ROUTE QDAY Rx Instructions: Mix 17 GM in 8 oz of water daily; Senna Plus 8.6-50 mg capsule 1 tab-cap PO DAILY latanoprost 0.005 % drops 1 drp EACH EYE .COMPLEX Patient Comments: M-W- Rx Instructions: 1 drp into Each EYE mwf; @hs oxybutynin chloride 15 mg tablet extended release 24hr 15 mg PO DAILY potassium chloride 20 mEq Tablet,Er Particles/Crystals 20 meq PO DAILYCM 30 Days Qty: 30 0RF cyanocobalamin (vitamin B-12) 1,000 mcg/mL Solution 1,000 mcg IM QMONTH Qty: 0 0RF acetaminophen 500 mg Tablet 1,000 mg PO Q8 PRN (Reason: fever or pain) (DME) Handicap Placard See Rx Instructions .Route .MEDSUPPLY Qty: 1 0RF Rx Instructions: Length of time: 5 years (DME) pen needle, diabetic [BD Sanaz 2nd Gen Pen Needle] 32 gauge x 5/32 needle See Rx Instructions .ROUTE .MEDSUPPLY Qty: 50 2RF Rx Instructions: use once daily to adminster insulin as directed. sertraline 50 mg tablet 50 mg PO QHS Qty: 90 3RF gabapentin 100 mg capsule 100 mg PO BID Qty: 180 3RF gabapentin 300 mg capsule 300 mg PO 2100 Qty: 90 3RF clopidogrel [Plavix] 75 mg tablet 75 mg PO DAILY Qty: 90 3RF furosemide 40 mg tablet 40 mg PO DAILY Qty: 90 3RF hydralazine 100 mg tablet 100 mg PO TID Qty: 270 3RF pramipexole 0.125 mg tablet 0.125 mg PO QHS Qty: 90 3RF amlodipine 10 mg tablet 10 mg PO DAILY Qty: 90 3RF doxazosin 4 mg tablet 4 mg PO QHS Qty: 90 3RF insulin glargine [Lantus Solostar U-100 Insulin] 100 unit/mL (3 mL) insulin pen 18 unit subcut QAM Qty: 15 3RF Primary Care Provider: Jennifer Watt Referrals: Jennifer Watt MD [Primary Care Provider] - 3-5 Days Activity Restrictions/Additional Instructions: Plenty of fluids and rest. Follow-up with his doctor or his primary care physician or your medical collections in the next 3 to 5 days to ensure he is improving. He does have an elevated white count and his urine has white cells and bacteria in it. For that reason I am going to start him on an antibiotic in case he has an early UTI. Blood and urine cultures are pending at this time. The antibiotic Cipro 1 pill twice a day for 7 days. Follow-up with his doctor if not improving or return if worse. Print Language: Jamaican Disposition Disposition: Home, Self Care
[2024-03-09 03:07] VITALS: O2SAT 92
[2024-03-09] MEDS: 0.9% Normal Saline (1000mL) 1,000 ML 999 ML IV (03:07)
[2024-03-09 03:34] LABS: ALB/GLOB Ratio 0.6 RATIO (0.9-2.4); AST(SGOT) 20 U/L (15-37); Alanine Aminotransfer ALT/SGPT 19 U/L (16-61); Albumin, Serum 2.4 g/dL (3.2-5.0); Alkaline Phosphatase 72 U/L (45-117); Anion Gap 4 (5-15); BUN 37 mg/dL (7-18); BUN/Creat Ratio 21.5 RATIO (10-20); Calcium,Total 8.4 mg/dL (8.5-10.1); Chloride 101 mmol/L (98-107); Creatinine, Serum 1.72 mg/dL (0.70-1.30); EST Glomerular Filtration Rate 40 mL/min (>60); Est Glom Filt Rate - Afr Amer 49 mL/min (>60); Estimated Creatinine Clearance 35.09 ml/min; Globulin 3.9 g/dL (2.2-4.2); Glucose 103 mg/dL (74-106); Potassium 3.5 mmol/L (3.5-5.1); Protein, Total 6.3 g/dL (6.4-8.2); Sodium Level 137 mmol/L (136-145)
[2024-03-09 03:40] LABS: Absolute Lymphocyte Count 1.34 X10^3/uL (0.83-4.51); Absolute Neutrophil Count 16.6 X10^3/uL (2.0-7.7); Basophil# 0.05 X10^3/uL; Basophil% 0.3 % (0-1); Eosinophil# 0.03 X10^3/uL; Eosinophils% 0.2 % (0-5); Hematocrit 31.5 % (40-54); Hemoglobin 10.4 g/dL (13.0-16.5); Lymphocyte # 1.34 X10^3/ul (0.83-4.51); Mean Corpuscular Hgb 30.2 pg (27.0-32.0); Mean Corpuscular Volume 91.6 fL (80-94); Mean Platelet Vol. 10.8 fl (6.2-12.0); Monocyte# 0.89 X10^3/uL; Monocyte% 4.6 % (0-10); NRBC Flagged by Analyzer 0 % (0-5); Neutrophil # 16.61 X10^3/uL (2.7-7.7); Neutrophil % 86.1 % (47-70); Platelet Count 312 K/mm3 (150-450); RBC Distribution Width CV 14.4 % (11.6-14.6); Red Blood Count 3.44 M/mm3 (4.6-6.2); White Blood Count 19.3 K/mm3 (4.4-11.0)
[2024-03-09 03:42] LABS: Prothrombin Time (Protime)PT. 13.5 SECONDS (11.7-14.9)
[2024-03-09 03:44] VITALS: BP 119/55; PULSE 75; RESP 17; TEMP 36.9; O2SAT 93
[2024-03-09 03:55] LABS: Mucous, Urine 0 SEEN /hpf (<or=2+); Red Blood Cells-Urine 0 SEEN /hpf (0-5); Squamous Epithelial Cells - UA 0 SEEN /hpf (0-5)
[2024-03-09 03:56] LABS: Color, Urine Yellow (Yellow); Glucose, Dipstick Normal (Normal); Ketone-Dipstick Negative (Negative); Leukocyte Esterase-Dipstick 500 /ul (Negative); Nitrite-Dipstick Negative (Negative); Occult Blood-Urine 50 /ul (Negative); Protein-Dipstick 100 mg/dl (Negative); Urine Bilirubin Dipstick Negative (Negative); Urine Clarity Sl. Cloudy (Clear); Urine Urobilinogen Normal (Normal)
[2024-03-09 04:00] VITALS: BP 127/54; PULSE 72; RESP 18; TEMP 36.9; O2SAT 95
[2024-03-09 04:03] LABS: Lactic Acid 0.8 mmol/L (0.4-1.9)
[2024-03-09 04:10] LABS: Bacteria 3+ /hpf (None Seen); White Blood Cells 5-10 SEEN /hpf (0-5)
[2024-03-09] MEDS: Ciprofloxacin 500 MG Tablet PO (04:51)
[2024-03-09 04:52] VITALS: BP 122/54; PULSE 70; RESP 18; TEMP 36.9; O2SAT 92
--- NOTE | 2024-03-09 05:19 | ED.RN ---
pt stated the pts cpap machine was left here at the hospital, so since she was here she wanted to go to the floor to get it, [facility] was called, they did locate the cpap machine in the dirty utility room, the hose and the mask were thrown out. resp notified and they will be bringing a mask, stated they have extra tubing. dr kumar updated in regards to not wearing his cpap last night and being sob.
== END 2024-03-09 05:27 | disposition home or self-care (01) ==
PROVIDERS: Emergency Provider Emergency Medicine; PCP Internal Medicine; Visit Provider Emergency Medicine
DX: U07.1 COVID-19 (principal); I69.354 Hemiplegia and hemiparesis following cerebral infarction affecting left non-dominant side; I13.0 Hypertensive heart and chronic kidney disease with heart failure and stage 1 through stage 4 chronic kidney disease, or unspecified chronic kidney disease; I50.9 Heart failure, unspecified; I48.0 Paroxysmal atrial fibrillation; E11.22 Type 2 diabetes mellitus with diabetic chronic kidney disease; Z79.4 Long term (current) use of insulin; E11.51 Type 2 diabetes mellitus with diabetic peripheral angiopathy without gangrene; N39.0 Urinary tract infection, site not specified; J98.11 Atelectasis; E86.0 Dehydration; E78.5 Hyperlipidemia, unspecified; F32.A Depression, unspecified; N40.0 Benign prostatic hyperplasia without lower urinary tract symptoms; I25.10 Atherosclerotic heart disease of native coronary artery without angina pectoris; M19.90 Unspecified osteoarthritis, unspecified site; G47.33 Obstructive sleep apnea (adult) (pediatric); G25.81 Restless legs syndrome; Z79.02 Long term (current) use of antithrombotics/antiplatelets; Z79.899 Other long term (current) drug therapy
CPT/HCPCS: 71045; 80053; 81001; 83605; 85025; 85610; 85730; 87040; 87086; 87088; 87186; 87631; 93005; 96360; 96361; 99285; A4216

== ENCOUNTER → 2024-03-29 | Outpatient (CLI) | payer MEDICARE, SELFPAY ==
[2024-03-29 12:34] LABS: Bacteria 0 SEEN /hpf (None Seen); Mucous, Urine 0 SEEN /hpf (<or=2+); Squamous Epithelial Cells - UA 0 SEEN /hpf (0-5); White Blood Cells 0 SEEN /hpf (0-5)
[2024-03-29 13:04] LABS: Absolute Lymphocyte Count 1.23 X10^3/uL (0.83-4.51); Basophil# 0.08 X10^3/uL; Basophil% 0.6 % (0-1); Eosinophil# 0.44 X10^3/uL; Eosinophils% 3.2 % (0-5); Hematocrit 32.6 % (40-54); Hemoglobin 10.6 g/dL (13.0-16.5); Lymphocyte # 1.23 X10^3/ul (0.83-4.51); Lymphocyte % 8.9 % (19-41); Mean Corp Hgb Conc 32.5 g/dL (32-36); Mean Corpuscular Hgb 29.5 pg (27.0-32.0); Mean Corpuscular Volume 90.8 fL (80-94); Mean Platelet Vol. 10.4 fl (6.2-12.0); Monocyte# 0.97 X10^3/uL; NRBC Flagged by Analyzer 0 % (0-5); Neutrophil # 11.03 X10^3/uL (2.7-7.7); Neutrophil % 80.1 % (47-70); Platelet Count 255 K/mm3 (150-450); RBC Distribution Width CV 14.7 % (11.6-14.6); RBC Distribution Width SD 48.7 fl (35.1-43.9); Red Blood Count 3.59 M/mm3 (4.6-6.2); White Blood Count 13.8 K/mm3 (4.4-11.0)
[2024-03-29 13:32] LABS: Vitamin B12 975 pg/mL (211-911); Vitamin D,25 Hydroxy 51.1 ng/mL
[2024-03-29 13:35] LABS: Hemoglobin A1c 8.8 % (3.8-5.6)
[2024-03-29 13:39] LABS: ALB/GLOB Ratio 0.6 RATIO (0.9-2.4); AST(SGOT) 7 U/L (15-37); Alanine Aminotransfer ALT/SGPT 11 U/L (16-61); Albumin, Serum 2.7 g/dL (3.2-5.0); Alkaline Phosphatase 77 U/L (45-117); Anion Gap 7 (5-15); BUN 41 mg/dL (7-18); BUN/Creat Ratio 27.3 RATIO (10-20); Calcium,Total 9.2 mg/dL (8.5-10.1); Chloride 99 mmol/L (98-107); Cholesterol 150 mg/dL (200); EST Glomerular Filtration Rate 47 mL/min (>60); Est Glom Filt Rate - Afr Amer 57 mL/min (>60); Free T3 1.3 pg/mL (2.18-3.98); Globulin 4.5 g/dL (2.2-4.2); Glucose 225 mg/dL (74-106); High Density Lipoprotein 45 mg/dL; Potassium 3.2 mmol/L (3.5-5.1); Protein, Total 7.2 g/dL (6.4-8.2); Sodium Level 137 mmol/L (136-145); T4 Free Direct 1.17 ng/dL (0.76-1.46); Triglycerides 116 mg/dL; Very Low Density Lipoprotein 23 mg/dL (5-40)
[2024-03-30 11:04] LABS: Color, Urine Yellow (Yellow); Glucose, Dipstick Normal (Normal); Ketone-Dipstick Negative (Negative); Leukocyte Esterase-Dipstick Negative /ul (Negative); Nitrite-Dipstick Negative (Negative); Occult Blood-Urine Negative /ul (Negative); Protein-Dipstick 30 mg/dl (Negative); Urine Bilirubin Dipstick Negative (Negative); Urine Clarity Clear (Clear); Urine Urobilinogen Normal (Normal)
[2024-03-30 11:10] LABS: Calcium Oxalate Crystals Ur 1+ /hpf (<or=2+); Red Blood Cells-Urine 0-5 SEEN /hpf (0-5)
== END | disposition home or self-care (01) ==
LOC: LAB 12:31
PROVIDERS: PCP Internal Medicine; Referring Provider Internal Medicine; Visit Provider Internal Medicine
DX: I12.9 Hypertensive chronic kidney disease with stage 1 through stage 4 chronic kidney disease, or unspecified chronic kidney disease (principal); L97.522 Non-pressure chronic ulcer of other part of left foot with fat layer exposed; I48.0 Paroxysmal atrial fibrillation; N18.32 Chronic kidney disease, stage 3b; I87.8 Other specified disorders of veins; H40.9 Unspecified glaucoma; R53.81 Other malaise; Z86.73 Personal history of transient ischemic attack (TIA), and cerebral infarction without residual deficits; E78.2 Mixed hyperlipidemia; I73.9 Peripheral vascular disease, unspecified; E53.8 Deficiency of other specified B group vitamins; R73.9 Hyperglycemia, unspecified; E55.9 Vitamin D deficiency, unspecified
CPT/HCPCS: 36415; 80053; 80061; 81001; 82306; 82607; 83036; 83735; 84439; 84443; 84481; 85025

== ENCOUNTER → 2024-03-30 | Outpatient (CLI) | payer MEDICARE, SELFPAY | END | disposition home or self-care (01) | LOC: LAB 09:16 | PROVIDERS: PCP Internal Medicine; Referring Provider Internal Medicine; Visit Provider Internal Medicine | DX: Z00.00 Encounter for general adult medical examination without abnormal findings (principal) ==

== ENCOUNTER 2024-04-10 15:00 | Outpatient (RCR) | payer MEDICARE, SELFPAY ==
[2024-03-14 00:42] VITALS: BP 163/69; PULSE 55; RESP 18; TEMP 35.8; BMI 23.0
[2024-03-20 11:50] VITALS: BP 151/59; PULSE 82; RESP 18; TEMP 35.8; BMI 23.0
--- NOTE | 2024-03-20 12:04 | PN.PCM_ITS ---
History of Present Illness Date of Service: 03/20/24 Progress of Wound: 83-year-old male seen for a left heel pressure ulceration. Patient suffered a hip fracture in early December which he is predominantly been nonweightbearing since that time of that injury. Patient did undergo hip surgery. Patient has recently been converted to DNR CCA is currently on hospice care. At current patient denies any fever chills nausea vomiting chest pain calf pain shortness of breath. Patient has been treating the wound site himself. Notes no signs of infection or pain. Patient has been offloading the heel to left lower extremity via heel float. No other complaints. 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 Objective Data Objective Data Vital Signs: Vital Signs Temp Pulse Resp BP 96.5 F L 82 18 151/59 H 03/20/24 11:50 03/20/24 11:50 03/20/24 11:50 03/20/24 11:50 Weight: 77.111 kg Body Mass Index (BMI) 23.0 Physical Exam Narrative Vascular: Dorsalis pedis posterior tibial pulses diminished bilateral lower extremity 1 L4. Some atrophic skin changes noted to bilateral feet with skin thinning and shiny taut appearance. Absent digital hair growth noted. Neurologic: Light touch protective sensation diminished to bilateral lower extremities. Dermatologic: Full-thickness ulceration noted to the plantar left heel with a mixed fibronecrotic base. Postdebridement wound demonstrated a 50-50 granular/necrotic base. No evidence of deep probing undermining or acute signs of infection noted today. 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 Patient uses bracing to left lower extremity via dropfoot assist brace. Debridement Note Debridement Note Post-Debridement Measurements and Additional Note: Post-Debridement Measurements/Treatment WC - Nurse 1 - General Ulcer Assessment Start: 03/20/24 11:50 Freq: Status: Active Protocol: CARYN Activity Type Activity Date Activity User E-sign Co-sign Detail Recorded Client Recorded Date Recorded By Document 03/20/24 11:50 RB [id number] 03/20/24 11:54 RB 03/20/24 11:50 - Today's Visit Information Type of service Follow-up Visit (Physician/SURVEYING OR SPATIAL SCIENCE TECHNICIAN ) Arrival Mode Wheelchair Transfer Assistance Manual Patient Identification Verified (Name & Yes ) Patient Requires Transmission-Based No Precautions Height and Weight Body Mass Index (BMI) 23.0 BMI Classification Normal Vital Signs Temperature (97.8 F-99.1 F) 96.5 F L Temperature Source Temporal Pulse Rate (60-100) 82 Pulse Location Monitor Respiratory Rate (12-18) 18 Respiratory rate source Observation Blood Pressure (90/60-120/80) 151/59 H Blood Pressure Mean (mm Hg) 89 Source Monitor Position Semi-Fowlers Blood Pressure Location Left Arm History Since Last Visit- (Skip if this is Patient's initial visit) Have you changed medications since your No last visit? Any new allergies or adverse reactions No Had a fall/change in ADL's that may No increase risk of falls Signs or symptoms of abuse and/or No neglect since last visit Have you been in the hospital since your No last visit? Has dressing in place as prescribed Yes Has compression in place as prescribed Yes Has offloadiing in place as prescribed No Experienced any changes in pain level or No management Pain Scale: 0-10 Numeric Is Patient Pain Free? Yes WC - Nurse 1 - General Ulcer Measurement Start: 03/20/24 11:50 Freq: Status: Active Protocol: Activity Type Activity Date Activity User E-sign Co-sign Detail Recorded Client Recorded Date Recorded By Document 03/20/24 11:50 RB [id number] 03/20/24 11:54 RB 03/20/24 11:50 Wound Center Nurse 1 #2 right ankle -Combined with other wound No #1 LT HEEL -Combined with other wound No -Current Size (cm) - Length 0.6 -Current Size (cm) - Width 0.5 -Current Size (cm) - Depth 0.2 -Total Square Cm 0.30 -Photo Taken Yes -Tunneling No -Undermining/Tunneling No -Circular Undermining No -Exudate Amt Medium -Exudate Type Serosanguineous -Wound Margin Thickened & Rolled Under -Granulation Amt Small (1-33%) -Granulation Quality [place] -Slough/Fibrin Yes -Necrosis Amt Medium (34-66%) -Necrotic Tissue Type Adherent Slough -Structure Exposed N/A -Texture (Fauzia-wound Skin Appearance) Assessed,Callus -Moisture (Fauzia-wound Skin Appearance) Assessed -Color (Fauzia-wound Skin Appearance) Assessed -Temperature (Fauzia-wound Skin No Abnormality Appearance) (Pt Warm) -Tenderness on Palpation (Fauzia-wound No Skin Appearance) -Ulcer Cleansing Wound Cleanser -Foul Odor after Cleansing No -Anesthetic Used 5% Lidocaine Gel Assessment/Plan Assessment/Plan (1) Diabetic polyneuropathy: 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 Patient is hospice care and DNR CCA. Patient reports his goal is to get wound healing and then return to ambulation. Patient reports he is not receiving therapy at the facility due to hospice care. Patient wishes to proceed with therapy and attempt to return to ambulation. Patient has left heel ulceration which is not infected and noted to be a Jonas class II. Excisional debridement to heel wound performed using a #5mm dermal curette of all non-vaible tissue down to and including subcutaneous tissue. hemostasis obtained with light compression. topical anesthesia use. patient tolerated procedure well. pre and post debridement measurements documented in nursing notes. We have recommended Sanjeev for nutrient supplementation. Today wound was dressed with 18 mm disc EpiFix graft to the left heel. This was stabilized with overlying wound veil and Steri-Strips. Entire graft graft was used, no waste. Overlying dry sterile dressing and Tubigrip applied to left lower extremity Patient will follow-up in 1 week (2) Non-pressure chronic ulcer of other part of left foot with fat layer exposed: CODE(S): L97.522 - Non-pressure chronic ulcer of other part of left foot with fat layer exposed
--- NOTE | 2024-03-22 12:22 | WC ---
PHOTO 03/20/24 LEFT HEEL
[2024-03-27 11:31] VITALS: BP 130/67; PULSE 62; RESP 18; TEMP 36.2; BMI 23.0
--- NOTE | 2024-03-28 08:58 | WC ---
PHOTO 03/27/24 RIGHT LATERAL ANKLE
--- NOTE | 2024-03-28 08:58 | WC ---
PHOTO 03/27/24 LEFT HEEL
[2024-04-03 11:45] VITALS: BP 164/67; PULSE 58; RESP 18; TEMP 36.2; BMI 23.0
--- NOTE | 2024-04-03 12:17 | PN.PCM_ITS ---
History of Present Illness Date of Service: 04/03/24 Progress of Wound: 83-year-old male seen for a left heel pressure ulceration. Patient suffered a hip fracture in early December which he is predominantly been nonweightbearing since that time of that injury. Patient did undergo hip surgery. Patient has recently been converted to DNR [facility] is currently on hospice care. At current patient denies any fever chills nausea vomiting chest pain calf pain shortness of breath. Patient has been treating the wound site himself. Notes no signs of infection or pain. Patient has been offloading the heel to left lower extremity via heel float. No other complaints. 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 Objective Data Objective Data Vital Signs: Vital Signs Temp Pulse Resp BP O2 Del Method 97.1 F L 58 L 18 164/67 H Room Air 04/03/24 11:45 04/03/24 11:45 04/03/24 11:45 04/03/24 11:45 03/27/24 11:31 Oxygen Delivery Method Room Air Weight: 77.111 kg Body Mass Index (BMI) 23.0 Physical Exam Narrative Vascular: Dorsalis pedis posterior tibial pulses diminished bilateral lower extremity 1 L4. Some atrophic skin changes noted to bilateral feet with skin thinning and shiny taut appearance. Absent digital hair growth noted. Neurologic: Light touch protective sensation diminished to bilateral lower extremities. Dermatologic: Full-thickness ulceration noted to the plantar left heel with a mixed fibronecrotic base. Postdebridement wound demonstrated a 50-50 granular/necrotic base. No evidence of deep probing undermining or acute signs of infection noted today. 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 Patient uses bracing to left lower extremity via dropfoot assist brace. Debridement Note Debridement Note Post-Debridement Measurements and Additional Note: Post-Debridement Measurements/Treatment WC - Nurse 1 - General Ulcer Assessment Start: 03/20/24 11:50 Freq: Status: Active Protocol: CARYN Activity Type Activity Date Activity User E-sign Co-sign Detail Recorded Client Recorded Date Recorded By Document 03/20/24 11:50 RB [id number] 03/20/24 11:54 RB Document 03/27/24 11:31 KW [id number] 01/14/25 11:50 KW Document 04/03/24 11:45 RB [id number] 04/03/24 11:49 RB 03/20/24 03/27/24 04/03/24 11:50 11:31 11:45 - Today's Visit Information Type of service Follow-up Visit Follow-up Visit Follow-up Visit (Physician/GOLF TOURNAMENT CONSULTANT (Physician/GOLF TOURNAMENT CONSULTANT (Physician/GOLF TOURNAMENT CONSULTANT ) ) ) Arrival Mode Wheelchair Wheelchair Wheelchair Transfer Assistance Manual Manual,None Accompanied by Patient Identification Verified (Name & Yes Yes ) Patient Requires Transmission-Based No No Precautions Height and Weight Body Mass Index (BMI) 23.0 23.0 23.0 BMI Classification Normal Normal Normal Vital Signs Temperature (97.8 F-99.1 F) 96.5 F L 97.1 F L 97.1 F L Temperature Source Temporal Temporal Temporal Pulse Rate (60-100) 82 62 58 L Pulse Location Monitor Monitor Respiratory Rate (12-18) 18 18 18 Respiratory rate source Observation Observation Observation Oxygen Delivery Method Room Air Blood Pressure (90/60-120/80) 151/59 H 130/67 H 164/67 H Blood Pressure Mean (mm Hg) 89 88 99 Source Monitor Monitor Monitor Position Semi-Fowlers Semi-Fowlers Semi-Fowlers Blood Pressure Location Left Arm Left Arm Left Arm History Since Last Visit- (Skip if this is Patient's initial visit) Have you changed medications since your No No No last visit? Any new allergies or adverse reactions No No No Had a fall/change in ADL's that may No No No increase risk of falls Signs or symptoms of abuse and/or No No No neglect since last visit Have you been in the hospital since your No Yes No last visit? Has dressing in place as prescribed Yes Yes Yes Has compression in place as prescribed Yes Yes Yes Has offloadiing in place as prescribed No Yes Yes Experienced any changes in pain level or No No No management Left Footwear Regular Shoe Surgical Shoe with pressure relief insole Right Footwear Regular Shoe Regular Shoe Pain Scale: 0-10 Numeric Is Patient Pain Free? Yes No Yes - Nurse 1 - General Ulcer Measurement Start: 03/20/24 11:50 Freq: Status: Active Protocol: Activity Type Activity Date Activity User E-sign Co-sign Detail Recorded Client Recorded Date Recorded By Document 03/20/24 11:50 RB [id number] 03/20/24 11:54 RB Document 03/27/24 11:31 [id number] [id number] 03/27/24 11:50 KW Document 04/03/24 11:45 RB [id number] 04/03/24 11:49 RB 03/20/24 03/27/24 04/03/24 11:50 11:31 11:45 Wound Center Nurse 1 #2 right ankle -Combined with other wound No #1 LT HEEL -Combined with other wound No No -Current Size (cm) - Length 0.6 0.8 0.1 -Current Size (cm) - Width 0.5 1.5 0.1 -Current Size (cm) - Depth 0.2 0.3 0.1 -Total Square Cm 0.30 1.20 0.01 -Date of Last Picture (Recall this 03/27/24 field) -Photo Taken Yes Yes -Tunneling No No -Undermining/Tunneling No Yes No -Undermining/Tunneling Starts (O'clock 12 ) -Undermining/Tunneling Ends (O'clock) 1 -Maximum Distance (cm) 0.2 -Circular Undermining No No -Exudate Amt Medium Small Medium -Exudate Type Serosanguineous Serosanguineous Serosanguineous -Wound Margin Thickened & Distinct, Distinct, Rolled Under Outline Outline Attached Attached -Granulation Amt Small (1-33%) Large (67-100%) Medium (34-66%) -Granulation Quality [place] -Slough/Fibrin Yes Yes -Necrosis Amt Medium (34-66%) Medium (34-66%) -Necrotic Tissue Type Adherent Slough Adherent Slough -Structure Exposed N/A N/A -Texture (Fauzia-wound Skin Appearance) Assessed,Callus Assessed Assessed,Callus -Moisture (Fauzia-wound Skin Appearance) Assessed Assessed, Assessed Maceration -Color (Fauzia-wound Skin Appearance) Assessed Assessed Assessed -Temperature (Fauzia-wound Skin No Abnormality No Abnormality No Abnormality Appearance) (Pt Warm) (Pt Warm) (Pt Warm) -Tenderness on Palpation (Fauzia-wound No No No Skin Appearance) -Ulcer Cleansing Wound Cleanser Rinsed/ Wound Cleanser Irrigated with Saline -Foul Odor after Cleansing No No No -Anesthetic Used 5% Lidocaine 5% Lidocaine 5% Lidocaine Gel Gel Gel WC - Nurse 2 - General Ulcer CM Notes Start: 03/20/24 11:50 Freq: Status: Active Protocol: Activity Type Activity Date Activity User E-sign Co-sign Detail Recorded Client Recorded Date Recorded By Document 03/20/24 12:04 [id number] 03/20/24 12:06 Document 03/27/24 12:10 JF [id number] 03/27/24 12:19 Document 04/03/24 12:10 [id number] 04/03/24 12:16 JF 03/20/24 03/27/24 04/03/24 12:04 12:10 12:10 Wound Center Nurse 2 #2 right ankle -Correct Patient No -Correct Side, Site, Position No -Correct Procedure No -Procedure Performed No -Post Debridement (cm) - Length 0 -Post Debridement (cm) - Width 0 -Post Debridement (cm) - Depth 0 -Total Square (Post) (cm) 0 -Area of Debridement (cm) - Length 0 -Area of Debridement (cm) - Width 0 -Total Square (Area) (cm) 0 -Wound/Ulcer Outcome Healed- Epithelialized #1 LT HEEL -Time 12:04 12:11 12:15 -Correct Patient Yes Yes Yes -Correct Side, Site, Position Yes Yes Yes -Correct Procedure Yes Yes Yes -Procedure Performed Yes Yes Yes -Type of Procedure Debridement Debridement Debridement -Clinical Debridement Subcutaneous Subcutaneous Subcutaneous -Tissue Removed Subcutaneous Subcutaneous Subcutaneous -Post Debridement (cm) - Length 1.2 0.5 0.8 -Post Debridement (cm) - Width 0.6 1.5 0.9 -Post Debridement (cm) - Depth 0.1 0.2 0.1 -Total Square (Post) (cm) 0.72 0.75 0.72 -Area of Debridement (cm) - Length 1.2 0.5 0.8 -Area of Debridement (cm) - Width 0.6 1.5 0.9 -Total Square (Area) (cm) 0.72 0.75 0.72 -Tunneling No No No -Undermining/Tunneling No No No -Circular Undermining No No No -Wound/Ulcer Outcome Not Healed Not Healed Not Healed -Ulcer Cleansing Rinsed/ Rinsed/ Rinsed/ Irrigated with Irrigated with Irrigated with Saline Saline Saline -Foul Odor after Cleansing No No No -Bioengineered Tissue Yes Yes Yes -Type of Bioengineered Tissue Epifix 18mm Epifix 18mm Epifix 18mm Disc Disc Disc -Expiration Date 10/12/28 10/12/28 11/12/28 -Product Lot Number [id number] -Percent Used 100 100 100 -Lot number of Saline Used [id number] -Bleeding Controlled with Pressure Pressure Pressure -Treatment Response Procedure Procedure Procedure Tolerated Well Tolerated Well Tolerated Well -Offloading Yes Yes Yes -Type of Offloading Surgical Shoe Surgical Shoe Surgical Shoe -Debridement - Subq, 1st 20sq cm No No No -Apply Skin Sub - 1st 25 sq cm - Feet 1 1 1 -Epifix 18mm Disc 3 3 3 Pain Scale: 0-10 Numeric Is Patient Pain Free? Yes Yes Yes - Nurse 3 - General Ulcer D/C NN Start: 03/20/24 11:50 Freq: Status: Active Protocol: Activity Type Activity Date Activity User E-sign Co-sign Detail Recorded Client Recorded Date Recorded By Document 03/20/24 12:14 KW [id number] 03/20/24 12:14 Document 03/27/24 12:19 [id number] 03/27/24 12:19 03/20/24 03/27/24 12:14 12:19 Wound Care Center Nurse 3 #1 LT HEEL -Ulcer Cleansing Rinsed/ Irrigated with Saline -Foul Odor after Cleansing No -Primary Dressing Applied Mepilex Border -Primary Dressing Covered/Secured with Dry Gauze & Roll Gauze, Secured with Tape -Mepilex Border 1 Left -Tubular Bandage Single Layer Single Layer -Size of Tubigrip Used Size D Size E -Size D ($) 1 -Size E ($) 0 Pain Scale: 0-10 Numeric Is Patient Pain Free? Yes Yes - Visit Discharge Discharge Condition Stable Stable Ambulatory Status Wheelchair Wheelchair Transportation Private Auto Accompanied by Medication Reconcilliation completed & No Yes provided to patient/care provider Clinical Summary of Care Provided Yes Yes Assessment/Plan Assessment/Plan (1) Diabetic polyneuropathy: 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 Patient is hospice care and DNR CCA. Patient reports his goal is to get wound healing and then return to ambulation. Patient reports he is not receiving therapy at the facility due to hospice care. Patient wishes to proceed with therapy and attempt to return to ambulation. Patient has left heel ulceration which is not infected and noted to be a Jonas class II. Excisional debridement to heel wound performed using a #5mm dermal curette of all non-vaible tissue down to and including subcutaneous tissue. hemostasis obtained with light compression. topical anesthesia use. patient tolerated procedure well. pre and post debridement measurements documented in nursing notes. We have recommended Sanjeev for nutrient supplementation. Today wound was dressed with 18 mm disc EpiFix graft to the left heel. This was stabilized with overlying wound veil and Steri-Strips. Entire graft graft was used, no waste. Overlying dry sterile dressing and Tubigrip applied to left lower extremity Patient will follow-up in 1 week (2) Non-pressure chronic ulcer of other part of left foot with fat layer exposed: CODE(S): L97.522 - Non-pressure chronic ulcer of other part of left foot with fat layer exposed
[2024-04-10 11:19] VITALS: BP 145/53; PULSE 63; RESP 18; TEMP 36.2; BMI 23.0
--- NOTE | 2024-04-10 11:48 | PCM.WC.PN ---
History of Present Illness Date of Service: 04/10/24 Progress of Wound: 83-year-old male seen for a left heel pressure ulceration. Patient suffered a hip fracture in early December which he is predominantly been nonweightbearing since that time of that injury. Patient did undergo hip surgery. Patient has recently been converted to DNR [facility] is currently on hospice care. At current patient denies any fever chills nausea vomiting chest pain calf pain shortness of breath. Patient has been treating the wound site himself. Notes no signs of infection or pain. Patient has been offloading the heel to left lower extremity via heel float. No other complaints. 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 Objective Data Objective Data Vital Signs: Vital Signs Temp Pulse Resp BP O2 Del Method 97.1 F L 63 18 145/53 H Room Air 04/10/24 11:19 04/10/24 11:19 04/10/24 11:19 04/10/24 11:19 04/10/24 11:19 Oxygen Delivery Method Room Air Weight: 77.111 kg Body Mass Index (BMI) 23.0 Physical Exam Narrative Vascular: Dorsalis pedis posterior tibial pulses diminished bilateral lower extremity 1 L4. Some atrophic skin changes noted to bilateral feet with skin thinning and shiny taut appearance. Absent digital hair growth noted. Neurologic: Light touch protective sensation diminished to bilateral lower extremities. Dermatologic: Full-thickness ulceration noted to the plantar left heel with a mixed fibronecrotic base. Postdebridement wound demonstrated a 50-50 granular/necrotic base. No evidence of deep probing undermining or acute signs of infection noted today. 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 Patient uses bracing to left lower extremity via dropfoot assist brace. Debridement Note Debridement Note Post-Debridement Measurements and Additional Note: Post-Debridement Measurements/Treatment WC - Nurse 1 - General Ulcer Assessment Start: 03/20/24 11:50 Freq: Status: Active Protocol: CARYN Activity Type Activity Date Activity User E-sign Co-sign Detail Recorded Client Recorded Date Recorded By Document 03/20/24 11:50 RB [id number] 03/20/24 11:54 RB Document 03/27/24 11:31 KW [id number] 03/27/24 11:50 KW Document 04/03/24 11:45 RB [id number] 04/03/24 11:49 RB Document 04/10/24 11:19 KW [id number] 04/10/24 11:31 KW 03/20/24 03/27/24 04/03/24 11:50 11:31 11:45 WC - Today's Visit Information Type of service Follow-up Visit Follow-up Visit Follow-up Visit (Physician/AGRICULTURAL CHEMICALS INSPECTOR (Physician/AGRICULTURAL CHEMICALS INSPECTOR (Physician/AGRICULTURAL CHEMICALS INSPECTOR ) ) ) Arrival Mode Wheelchair Wheelchair Wheelchair Arrival Mode (Other) Transfer Assistance Manual Manual,None Accompanied by Patient Identification Verified (Name & Yes Yes ) Patient Requires Transmission-Based No No Precautions Height and Weight Body Mass Index (BMI) 23.0 23.0 23.0 BMI Classification Normal Normal Normal Vital Signs Temperature (97.8 F-99.1 F) 96.5 F L 97.1 F L 97.1 F L Temperature Source Temporal Temporal Temporal Pulse Rate (60-100) 82 62 58 L Pulse Location Monitor Monitor Respiratory Rate (12-18) 18 18 18 Respiratory rate source Observation Observation Observation Oxygen Delivery Method Room Air Blood Pressure (90/60-120/80) 151/59 H 130/67 H 164/67 H Blood Pressure Mean (mm Hg) 89 88 99 Source Monitor Monitor Monitor Position Semi-Fowlers Semi-Fowlers Semi-Fowlers Blood Pressure Location Left Arm Left Arm Left Arm History Since Last Visit- (Skip if this is Patient's initial visit) Have you changed medications since your No No No last visit? Any new allergies or adverse reactions No No No Had a fall/change in ADL's that may No No No increase risk of falls Signs or symptoms of abuse and/or No No No neglect since last visit Have you been in the hospital since your No Yes No last visit? Has dressing in place as prescribed Yes Yes Yes Has compression in place as prescribed Yes Yes Yes Has offloadiing in place as prescribed No Yes Yes Experienced any changes in pain level or No No No management Left Footwear Regular Shoe Surgical Shoe with pressure relief insole Right Footwear Regular Shoe Regular Shoe Pain Scale: 0-10 Numeric Is Patient Pain Free? Yes No Yes 04/10/24 11:19 WC - Today's Visit Information Type of service Follow-up Visit (Physician/AGRICULTURAL CHEMICALS INSPECTOR ) Arrival Mode Wheelchair Arrival Mode (Other) Transfer Assistance Accompanied by Patient Identification Verified (Name & Yes ) Patient Requires Transmission-Based Precautions Height and Weight Body Mass Index (BMI) 23.0 BMI Classification Normal Vital Signs Temperature (97.8 F-99.1 F) 97.1 F L Temperature Source Temporal Pulse Rate (60-100) 63 Pulse Location Monitor Respiratory Rate (12-18) 18 Respiratory rate source Observation Oxygen Delivery Method Room Air Blood Pressure (90/60-120/80) 145/53 H Blood Pressure Mean (mm Hg) 83 Source Monitor Position Semi-Fowlers Blood Pressure Location Right Forearm History Since Last Visit- (Skip if this is Patient's initial visit) Have you changed medications since your No last visit? Any new allergies or adverse reactions No Had a fall/change in ADL's that may No increase risk of falls Signs or symptoms of abuse and/or No neglect since last visit Have you been in the hospital since your No last visit? Has dressing in place as prescribed Yes Has compression in place as prescribed Yes Has offloadiing in place as prescribed N/A Experienced any changes in pain level or No management Left Footwear Regular Shoe Right Footwear Regular Shoe Pain Scale: 0-10 Numeric Is Patient Pain Free? Yes WC - Nurse 1 - General Ulcer Measurement Start: 03/20/24 11:50 Freq: Status: Active Protocol: Activity Type Activity Date Activity User E-sign Co-sign Detail Recorded Client Recorded Date Recorded By Document 03/20/24 11:50 RB [id number] 03/20/24 11:54 RB Document 03/27/24 11:31 KW [id number] 03/27/24 11:50 KW Document 04/03/24 11:45 RB [id number] 04/03/24 11:49 RB Document 04/10/24 11:19 KW [id number] 04/10/24 11:31 KW 03/20/24 03/27/24 04/03/24 11:50 11:31 11:45 Wound Center Nurse 1 #2 right ankle -Combined with other wound No #1 LT HEEL -Combined with other wound No No -Current Size (cm) - Length 0.6 0.8 0.1 -Current Size (cm) - Width 0.5 1.5 0.1 -Current Size (cm) - Depth 0.2 0.3 0.1 -Total Square Cm 0.30 1.20 0.01 -Date of Last Picture (Recall this 03/27/24 field) -Photo Taken Yes Yes -Tunneling No No -Undermining/Tunneling No Yes No -Undermining/Tunneling Starts (O'clock 12 ) -Undermining/Tunneling Ends (O'clock) 1 -Maximum Distance (cm) 0.2 -Circular Undermining No No -Exudate Amt Medium Small Medium -Exudate Type Serosanguineous Serosanguineous Serosanguineous -Wound Margin Thickened & Distinct, Distinct, Rolled Under Outline Outline Attached Attached -Granulation Amt Small (1-33%) Large (67-100%) Medium (34-66%) -Granulation Quality [place] -Slough/Fibrin Yes Yes -Necrosis Amt Medium (34-66%) Medium (34-66%) -Necrotic Tissue Type Adherent Slough Adherent Slough -Structure Exposed N/A N/A -Texture (Fauzia-wound Skin Appearance) Assessed,Callus Assessed Assessed,Callus -Moisture (Fauzia-wound Skin Appearance) Assessed Assessed, Assessed Maceration -Color (Fauzia-wound Skin Appearance) Assessed Assessed Assessed -Temperature (Fauzia-wound Skin No Abnormality No Abnormality No Abnormality Appearance) (Pt Warm) (Pt Warm) (Pt Warm) -Tenderness on Palpation (Fauzia-wound No No No Skin Appearance) -Ulcer Cleansing Wound Cleanser Rinsed/ Wound Cleanser Irrigated with Saline -Foul Odor after Cleansing No No No -Anesthetic Used 5% Lidocaine 5% Lidocaine 5% Lidocaine Gel Gel Gel 04/10/24 11:19 Wound Center Nurse 1 #2 right ankle -Combined with other wound #1 LT HEEL -Combined with other wound -Current Size (cm) - Length 0.5 -Current Size (cm) - Width 0.5 -Current Size (cm) - Depth 0.3 -Total Square Cm 0.25 -Date of Last Picture (Recall this field) -Photo Taken -Tunneling -Undermining/Tunneling Yes -Undermining/Tunneling Starts (O'clock 12 ) -Undermining/Tunneling Ends (O'clock) 11 -Maximum Distance (cm) 0.4 -Circular Undermining Yes -Exudate Amt Small -Exudate Type Serosanguineous -Wound Margin Distinct, Outline Attached -Granulation Amt Large (67-100%) -Granulation Quality [place] -Slough/Fibrin -Necrosis Amt -Necrotic Tissue Type -Structure Exposed -Texture (Fauzia-wound Skin Appearance) Callus -Moisture (Fauzia-wound Skin Appearance) Assessed -Color (Fauzia-wound Skin Appearance) Assessed -Temperature (Fauzia-wound Skin No Abnormality Appearance) (Pt Warm) -Tenderness on Palpation (Fauzia-wound No Skin Appearance) -Ulcer Cleansing Soap and Water -Foul Odor after Cleansing No -Anesthetic Used 5% Lidocaine Gel WC - Nurse 2 - General Ulcer CM Notes Start: 03/20/24 11:50 Freq: Status: Active Protocol: Activity Type Activity Date Activity User E-sign Co-sign Detail Recorded Client Recorded Date Recorded By Document 03/20/24 12:04 [id number] 03/20/24 12:06 Document 03/27/24 12:10 [id number] 03/27/24 12:19 Document 04/03/24 12:10 [id number] 04/03/24 12:16 Document 04/10/24 11:44 [id number] 04/10/24 11:47 03/20/24 03/27/24 04/03/24 12:04 12:10 12:10 Wound Center Nurse 2 #2 right ankle -Correct Patient No -Correct Side, Site, Position No -Correct Procedure No -Procedure Performed No -Post Debridement (cm) - Length 0 -Post Debridement (cm) - Width 0 -Post Debridement (cm) - Depth 0 -Total Square (Post) (cm) 0 -Area of Debridement (cm) - Length 0 -Area of Debridement (cm) - Width 0 -Total Square (Area) (cm) 0 -Wound/Ulcer Outcome Healed- Epithelialized #1 LT HEEL -Time 12:04 12:11 12:15 -Correct Patient Yes Yes Yes -Correct Side, Site, Position Yes Yes Yes -Correct Procedure Yes Yes Yes -Procedure Performed Yes Yes Yes -Type of Procedure Debridement Debridement Debridement -Clinical Debridement Subcutaneous Subcutaneous Subcutaneous -Tissue Removed Subcutaneous Subcutaneous Subcutaneous -Post Debridement (cm) - Length 1.2 0.5 0.8 -Post Debridement (cm) - Width 0.6 1.5 0.9 -Post Debridement (cm) - Depth 0.1 0.2 0.1 -Total Square (Post) (cm) 0.72 0.75 0.72 -Area of Debridement (cm) - Length 1.2 0.5 0.8 -Area of Debridement (cm) - Width 0.6 1.5 0.9 -Total Square (Area) (cm) 0.72 0.75 0.72 -Tunneling No No No -Undermining/Tunneling No No No -Circular Undermining No No No -Wound/Ulcer Outcome Not Healed Not Healed Not Healed -Ulcer Cleansing Rinsed/ Rinsed/ Rinsed/ Irrigated with Irrigated with Irrigated with Saline Saline Saline -Foul Odor after Cleansing No No No -Bioengineered Tissue Yes Yes Yes -Type of Bioengineered Tissue Epifix 18mm Epifix 18mm Epifix 18mm Disc Disc Disc -Expiration Date 10/12/28 10/12/28 11/12/28 -Product Lot Number [id number] -Percent Used 100 100 100 -Lot number of Saline Used [id number] -Bleeding Controlled with Pressure Pressure Pressure -Treatment Response Procedure Procedure Procedure Tolerated Well Tolerated Well Tolerated Well -Offloading Yes Yes Yes -Type of Offloading Surgical Shoe Surgical Shoe Surgical Shoe -Debridement - Subq, 1st 20sq cm No No No -Apply Skin Sub - 1st 25 sq cm - Feet 1 1 1 -Epifix 18mm Disc 3 3 3 Pain Scale: 0-10 Numeric Is Patient Pain Free? Yes Yes Yes 04/10/24 11:44 Wound Center Nurse 2 #2 right ankle -Correct Patient -Correct Side, Site, Position -Correct Procedure -Procedure Performed -Post Debridement (cm) - Length -Post Debridement (cm) - Width -Post Debridement (cm) - Depth -Total Square (Post) (cm) -Area of Debridement (cm) - Length -Area of Debridement (cm) - Width -Total Square (Area) (cm) -Wound/Ulcer Outcome #1 LT HEEL -Time 11:45 -Correct Patient Yes -Correct Side, Site, Position Yes -Correct Procedure Yes -Procedure Performed Yes -Type of Procedure Debridement -Clinical Debridement Subcutaneous -Tissue Removed Subcutaneous -Post Debridement (cm) - Length 1.5 -Post Debridement (cm) - Width 0.5 -Post Debridement (cm) - Depth 0.1 -Total Square (Post) (cm) 0.75 -Area of Debridement (cm) - Length 1.5 -Area of Debridement (cm) - Width 0.5 -Total Square (Area) (cm) 0.75 -Tunneling No -Undermining/Tunneling No -Circular Undermining No -Wound/Ulcer Outcome Not Healed -Ulcer Cleansing Rinsed/ Irrigated with Saline -Foul Odor after Cleansing No -Bioengineered Tissue Yes -Type of Bioengineered Tissue Epifix 18mm Disc -Expiration Date 11/12/28 -Product Lot Number [id number] -Percent Used 100 -Lot number of Saline Used [id number] -Bleeding Controlled with Pressure -Treatment Response Procedure Tolerated Well -Offloading No -Type of Offloading -Debridement - Subq, 1st 20sq cm No -Apply Skin Sub - 1st 25 sq cm - Feet 1 -Epifix 18mm Disc 3 Pain Scale: 0-10 Numeric Is Patient Pain Free? Yes - Nurse 3 - General Ulcer D/C NN Start: 03/20/24 11:50 Freq: Status: Active Protocol: Activity Type Activity Date Activity User E-sign Co-sign Detail Recorded Client Recorded Date Recorded By Document 03/20/24 12:14 KW [id number] 03/20/24 12:14 KW Document 03/27/24 12:19 JF [id number] 03/27/24 12:19 JF Document 04/03/24 12:22 RB [id number] 04/03/24 12:23 RB 03/20/24 03/27/24 04/03/24 12:14 12:19 12:22 Wound Care Center Nurse 3 #1 LT HEEL -Ulcer Cleansing Rinsed/ Irrigated with Saline -Foul Odor after Cleansing No -Primary Dressing Applied Mepilex Border -Other Dressing ABd hat -Primary Dressing Covered/Secured with Dry Gauze & Dry Gauze,Dry Roll Gauze, Gauze & Roll Secured with Gauze,Secured Tape with Tape -Mepilex Border 1 Left -Tubular Bandage Single Layer Single Layer Single Layer -Size of Tubigrip Used Size D Size E Size D -Size D ($) 1 1 -Size E ($) 0 Treatment Response Procedure Tolerated Well Pain Scale: 0-10 Numeric Is Patient Pain Free? Yes Yes Yes WC - Visit Discharge Discharge Condition Stable Stable Stable Ambulatory Status Wheelchair Wheelchair Wheelchair Transportation Private Auto Private Auto Accompanied by Medication Reconcilliation completed & No Yes No provided to patient/care provider Clinical Summary of Care Provided Yes Yes Yes Assessment/Plan Assessment/Plan (1) Diabetic polyneuropathy: 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 Patient is hospice care and DNR CCA. Patient reports his goal is to get wound healing and then return to ambulation. Patient reports he is not receiving therapy at the facility due to hospice care. Patient wishes to proceed with therapy and attempt to return to ambulation. Patient has left heel ulceration which is not infected and noted to be a Jonas class II. Excisional debridement to heel wound performed using a #5mm dermal curette of all non-vaible tissue down to and including subcutaneous tissue. hemostasis obtained with light compression. topical anesthesia use. patient tolerated procedure well. pre and post debridement measurements documented in nursing notes. We have recommended Sanjeev for nutrient supplementation. Today wound was dressed with 18 mm disc EpiFix graft to the left heel. This was stabilized with overlying wound veil and Steri-Strips. Entire graft graft was used, no waste. Overlying dry sterile dressing and Tubigrip applied to left lower extremity Patient will follow-up in 1 week (2) Non-pressure chronic ulcer of other part of left foot with fat layer exposed: CODE(S): L97.522 - Non-pressure chronic ulcer of other part of left foot with fat layer exposed
--- NOTE | 2024-04-10 14:50 | ART_ITS ---
Reason For Study: Wound Procedure A bilateral lower extremity continuous wave Doppler with analog waveform analysis,segmental pressures,and ankle brachial indexes without exercise. Left Segmental Pressures Left low thigh = >255mmHg. Left calf = 86mmHg. Left posterior tibial artery = 80mmHg. Left dorsalis pedis artery = 60mmHg. Left digit = 39 mmHg. The left dorsalis pedis waveforms are monophasic. The left posterior tibial artery waveforms are monophasic. Right Segmental Pressures Right brachial= 144mmHg. Right low thigh = >255mmHg. Right calf = 95mmHg. Right posterior tibial artery = 78mmHg. Right dorsalis pedis artery = 40mmHg. Right digit = 31 mmHg. The right dorsalis pedis waveforms are monophasic. The right posterior tibial artery waveforms are monophasic. Indices The right ankle brachial index by the dorsalis pedis is 0.258. The right ankle brachial index by the posterior tibial artery is 0.54. The right digital-brachial index is 0.22. The left ankle brachial index by the dorsalis pedis is 0.42. The left ankle brachial index by the posterior tibial artery is 0.56. The left digital-brachial index is 0.27. VL/Lower Ext Art Exam w/o Exercis Interpretation Summary Monophasic Doppler waveforms are noted at ankle level bilaterally. Pulse-volume recordings appear diminished at digital level on the right. Resting ankle-brachial indices are mo derately diminished bilaterally. Digital-brachial indices are moderately to severely diminished susan aterally. 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 There is evidence of [id number] arterial occlusive disease at digital level bila terally. The arterial occlusive disease appears to be multi-segmental bilaterally. Ordering Physician: Edwin Nieto Referring Physician: Jennifer Watt M.D. Performed By: Tish Riddle RVT and Student
== END 2024-04-13 23:59 | disposition home or self-care (01) ==
LOC: WC 15:00
PROVIDERS: PCP Internal Medicine; Referring Provider Podiatrist; Visit Provider Podiatrist
DX: L89.622 Pressure ulcer of left heel, stage 2 (principal); I69.354 Hemiplegia and hemiparesis following cerebral infarction affecting left non-dominant side; E11.42 Type 2 diabetes mellitus with diabetic polyneuropathy; E11.51 Type 2 diabetes mellitus with diabetic peripheral angiopathy without gangrene; Z66 Do not resuscitate; M21.372 Foot drop, left foot
CPT/HCPCS: 15275; 93923; Q4186

== ENCOUNTER 2024-05-08 11:30 | Outpatient (RCR) | payer MEDICARE, SELFPAY ==
[2024-04-17 11:37] VITALS: BP 145/51; PULSE 55; RESP 16; TEMP 36.4
--- NOTE | 2024-04-17 12:16 | PN.PCM_ITS ---
History of Present Illness Date of Service: 04/17/24 History of Wound: 83-year-old male presents with follow-up on a left heel pressure ulceration. Patient denies constitutional symptoms. Patient been offloading site was Prevalon boot to left lower extremity. Patient has no other issues today. Objective Data Objective Data Vital Signs: Vital Signs Temp Pulse Resp BP O2 Del Method 97.5 F L 55 L 16 145/51 H Room Air 04/17/24 11:37 04/17/24 11:37 04/17/24 11:37 04/17/24 11:37 04/17/24 11:37 Oxygen Delivery Method Room Air Physical Exam Narrative Vascular: Dorsalis pedis posterior tibial pulses diminished bilateral lower extremity 1 L4. Some atrophic skin changes noted to bilateral feet with skin thinning and shiny taut appearance. Absent digital hair growth noted. Neurologic: Light touch protective sensation diminished to bilateral lower extremities. Dermatologic: Full-thickness ulceration noted to the plantar left heel with a mixed fibronecrotic base. Postdebridement wound demonstrated a 50-50 granular/necrotic base. No evidence of deep probing undermining or acute signs of infection noted today. 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 Patient uses bracing to left lower extremity via dropfoot assist brace. Debridement Note Debridement Note Post-Debridement Measurements and Additional Note: Post-Debridement Measurements/Treatment - Nurse 1 - General Ulcer Assessment Start: 04/17/24 11:37 Freq: Status: Active Protocol: WC.LOWEXT Activity Type Activity Date Activity User E-sign Co-sign Detail Recorded Client Recorded Date Recorded By Document 04/17/24 11:37 [id number] 04/17/24 11:43 KW 04/17/24 11:37 - Today's Visit Information Type of service Follow-up Visit (Physician/[employer] ) Arrival Mode Wheelchair Accompanied by Patient Identification Verified (Name & Yes ) Vital Signs Temperature (97.8 F-99.1 F) 97.5 F L Temperature Source Temporal Pulse Rate (60-100) 55 L Pulse Location Monitor Respiratory Rate (12-18) 16 Respiratory rate source Observation Oxygen Delivery Method Room Air Blood Pressure (90/60-120/80) 145/51 H Blood Pressure Mean (mm Hg) 82 Source Monitor Position Semi-Fowlers Blood Pressure Location Left Arm History Since Last Visit- (Skip if this is Patient's initial visit) Have you changed medications since your No last visit? Any new allergies or adverse reactions No Had a fall/change in ADL's that may No increase risk of falls Signs or symptoms of abuse and/or No neglect since last visit Have you been in the hospital since your No last visit? Has dressing in place as prescribed Yes Has compression in place as prescribed Yes Has offloadiing in place as prescribed Yes Experienced any changes in pain level or No management Left Footwear Surgical Shoe with pressure relief insole Right Footwear Regular Shoe Pain Scale: 0-10 Numeric Is Patient Pain Free? Yes WC - Nurse 1 - General Ulcer Measurement Start: 04/17/24 11:37 Freq: Status: Active Protocol: Activity Type Activity Date Activity User E-sign Co-sign Detail Recorded Client Recorded Date Recorded By Document 04/17/24 11:37 KW [id number] 04/17/24 11:43 KW 04/17/24 11:37 Wound Center Nurse 1 #2 right ankle -Current Size (cm) - Length 0.3 -Current Size (cm) - Width 0.1 -Current Size (cm) - Depth 0.1 -Total Square Cm 0.03 -Granulation Amt Small (1-33%) -Granulation Quality [place] -Necrosis Amt Large (67-100%) -Necrotic Tissue Type Adherent Slough -Texture (Fauzia-wound Skin Appearance) Assessed, Localized Edema -Moisture (Fauzia-wound Skin Appearance) Assessed -Color (Fauzia-wound Skin Appearance) Assessed, Erythema -Temperature (Fauzia-wound Skin No Abnormality Appearance) (Pt Warm) -Tenderness on Palpation (Fauzia-wound No Skin Appearance) -Ulcer Cleansing Soap and Water -Foul Odor after Cleansing No -Anesthetic Used 5% Lidocaine Gel #1 LT HEEL -Current Size (cm) - Length 0.4 -Current Size (cm) - Width 1.1 -Current Size (cm) - Depth 0.3 -Total Square Cm 0.44 -Date of Last Picture (Recall this 04/17/24 field) -Exudate Amt Medium -Exudate Type Serosanguineous -Wound Margin Distinct, Outline Attached -Granulation Amt Small (1-33%) -Granulation Quality [place] -Necrosis Amt Medium (34-66%) -Necrotic Tissue Type Adherent Slough -Texture (Fauzia-wound Skin Appearance) Assessed -Moisture (Fauzia-wound Skin Appearance) Assessed -Color (Fauzia-wound Skin Appearance) Assessed -Temperature (Fauzia-wound Skin No Abnormality Appearance) (Pt Warm) -Tenderness on Palpation (Fauzia-wound No Skin Appearance) -Ulcer Cleansing Soap and Water -Foul Odor after Cleansing No -Anesthetic Used 5% Lidocaine Gel Right Calf (cm) 34 Left Calf (cm) 31 WC - Nurse 2 - General Ulcer CM Notes Start: 04/17/24 11:37 Freq: Status: Active Protocol: Activity Type Activity Date Activity User E-sign Co-sign Detail Recorded Client Recorded Date Recorded By Document 04/17/24 12:07 LULÚ [id number] 04/17/24 12:09 LULÚ 04/17/24 12:07 Wound Center Nurse 2 #2 right ankle -Correct Patient No -Correct Side, Site, Position No -Correct Procedure No -Procedure Performed No -Wound/Ulcer Outcome Not Healed #1 LT HEEL -Correct Patient Yes -Correct Side, Site, Position Yes -Correct Procedure Yes -Procedure Performed Yes -Type of Procedure Debridement -Clinical Debridement Subcutaneous -Tissue Removed Subcutaneous -Post Debridement (cm) - Length 1.2 -Post Debridement (cm) - Width 0.6 -Post Debridement (cm) - Depth 0.1 -Total Square (Post) (cm) 0.72 -Area of Debridement (cm) - Length 1.2 -Area of Debridement (cm) - Width 0.6 -Total Square (Area) (cm) 0.72 -Tunneling No -Undermining/Tunneling No -Circular Undermining No -Wound/Ulcer Outcome Not Healed -Ulcer Cleansing Rinsed/ Irrigated with Saline -Foul Odor after Cleansing No -Bioengineered Tissue Yes -Type of Bioengineered Tissue Epifix 18mm Disc -Expiration Date 11/12/28 -Product Lot Number [id number] -Percent Used 100 -Lot number of Saline Used [id number] -Bleeding Controlled with Pressure -Treatment Response Procedure Tolerated Well -Offloading No -Debridement - Subq, 1st 20sq cm No -Apply Skin Sub - 1st 25 sq cm - Feet 1 -Epifix 18mm Disc 3 Pain Scale: 0-10 Numeric Is Patient Pain Free? Yes - Nurse 3 - General Ulcer D/C NN Start: 04/17/24 11:37 Freq: Status: Active Protocol: Activity Type Activity Date Activity User E-sign Co-sign Detail Recorded Client Recorded Date Recorded By Document 04/17/24 12:11 ANIKA [id number] 04/17/24 12:13 ANIKA 04/17/24 12:11 Wound Care Center Nurse 3 #1 LT HEEL -Primary Dressing Applied Silicone Border Foam 4x4 -Silicone Border Foam 4x4 1 Right -Tubular Bandage Single Layer -Size of Tubigrip Used Size D -Size D ($) 1 Left -Tubular Bandage Single Layer -Size of Tubigrip Used Size D -Size D ($) 1 Pain Scale: 0-10 Numeric Is Patient Pain Free? Yes WC - Visit Discharge Discharge Condition Stable Ambulatory Status Wheelchair Medication Reconcilliation completed & No provided to patient/care provider Clinical Summary of Care Provided Yes Assessment/Plan Assessment/Plan (1) Diabetic polyneuropathy: 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 Patient is hospice care and DNR CCA. Patient reports his goal is to get wound healing and then return to ambulation. Patient reports he is not receiving therapy at the facility due to hospice care. Patient wishes to proceed with therapy and attempt to return to ambulation. Patient has left heel ulceration which is not infected and noted to be a Jonas class II. Excisional debridement to heel wound performed using a #5mm dermal curette of all non-vaible tissue down to and including subcutaneous tissue. hemostasis obtained with light compression. topical anesthesia use. patient tolerated procedure well. pre and post debridement measurements documented in nursing notes. We have recommended Sanjeev for nutrient supplementation. Today wound was dressed with 18 mm disc EpiFix graft to the left heel. This was stabilized with overlying wound veil and Steri-Strips. Entire graft graft was used, no waste. Overlying dry sterile dressing and Tubigrip applied to left lower extremity Patient will follow-up in 1 week Patient is to offload heels bilaterally with Prevalon boots when supine in bed and when sitting in wheelchair. Patient recently had a hip replacement which is why developed pressure ulceration first place. Patient is minimally ambulatory and is unable to get therapy due to DNR CCA status. Plan is for wound healing then return to ambulatory function. At this time I have recommended that the patient does work with therapy but he is having insurance issues have recommended further discussion with his orthopedic surgeon regarding weightbearing status and ability to perform physical therapy. (2) Non-pressure chronic ulcer of other part of left foot with fat layer exposed: CODE(S): L97.522 - Non-pressure chronic ulcer of other part of left foot with fat layer exposed
--- NOTE | 2024-04-18 12:22 | WC ---
PHOTO 04/17/24 LEFT HEEL
[2024-04-24 10:57] VITALS: BP 116/56; PULSE 63; RESP 18; TEMP 36.2
--- NOTE | 2024-04-25 15:15 | NURSING ---
PHOTO 04/24/24 LT VALENTIN
--- NOTE | 2024-04-27 16:48 | HP.PCM_ITS ---
History of Present Illness Date of Service: 04/24/24 Chief Complaint: Left posterior heel ulceration History of Wound: This is an 83-year-old male with a pressure ulceration of the left posterior heel. The patient has multiple pre-existing medical problems which are listed herein. The patient has been recently treated by means of a cellular tissue product, EpiFix. The 5th such allograft application was performed last week. Offloading has been by means of a Prevalon boot. The patient is known to be diabetic, and his last hemoglobin A1c was said to be 8.8 on March 29, 2024. The patient is also known to be anemic. [facility] Medical History Non-pressure chronic ulcer of left heel and midfoot with fat layer exposed CHF (congestive heart failure) COVID-19 virus infection Diabetes mellitus, type 2 Osteoarthritis Uncontrolled hypertension Closed displaced fracture of left femoral neck History of CHF (congestive heart failure) Obstructive sleep apnea Neuropathic pain Physical debility Fall Current use of insulin Back pain due to injury Restless legs Syncope Kidney stones PAF (paroxysmal atrial fibrillation) Anemia Weakness Wears glasses Depression Rash Insulin dependent diabetes mellitus Walker as ambulation aid Prostate disease Low iron Restless legs Stroke/cerebrovascular accident Dietary restriction Non-smoker BiPAP (biphasic positive airway pressure) dependence History of edema History of echocardiogram Cardiology follow-up encounter BPH (benign prostatic hyperplasia) Congestive heart failure Pneumonia Incontinence Limb weakness Unsteadiness Chronic anemia Hypertension Coronary artery disease Right renal artery stenosis Fatigue Ventricular tachycardia seen on pvc monitor (02/20/21) Peripheral vascular occlusive disease Type 2 diabetes mellitus Hyperlipidemia Essential hypertension History of CVA (cerebrovascular accident) (12/2020) Obstructive Sleep Apnea-Hypopnea Syndrome Absent pedal pulses Skin lesion of face Normocytic normochromic anemia Depression Dysphagia Proteinuria due to type 2 diabetes mellitus Facial droop due to acute stroke Acute left-sided muscle weakness Osteoarthritis Right pontine CVA Recurrent inguinal hernia of right side without obstruction or gangrene Home Medications ?Medication ?Instructions ?Recorded ?Last Taken ?Type Handicap Placard #1 ea 02/12/21 Unknown Rx sertraline 50 mg tablet 50 mg PO QHS mood #90 tabs 1 04/26/22 12/14/23 Rx gabapentin 100 mg capsule 100 mg PO BID pain #180 caps 05/04/23 12/15/23 Rx gabapentin 300 mg capsule 300 mg PO 2100 pain #90 caps 05/04/23 12/14/23 Rx potassium chloride 20 mEq 20 meq PO DAILYCM supplement 30 08/01/23 12/14/23 Rx tablet,extended release(part/cryst) days #30 tabs clopidogrel 75 mg tablet (Plavix) 75 mg PO DAILY blood thinner #90 08/12/23 12/15/23 Rx tabs amiodarone 200 mg tablet 100 mg (1/2 x 200 mg) PO CAMMIE LY BP 08/16/23 Unknown Rx #45 tabs furosemide 40 mg tablet 40 mg PO DAILY Fluid retenti on #90 08/22/23 12/14/23 Rx TABLETS hydralazine 100 mg tablet 100 mg PO TID BP #270 tabs 0 09/22/23 12/15/23 Rx oxybutynin chloride 15 mg 15 mg PO DAILY bladder 10/2712/15/23 History tablet,extended release 24 hr pramipexole 0.125 mg tablet 0.125 mg PO QHS parkinsons #90 tabs 11/08/23 12/14/23 Rx cyanocobalamin (vitamin B-12) 1,000 mcg IM QMONTH #0 m L 01/09/24 02/20/24 Rx 1,000 mcg/mL injection solution bisacodyl 10 mg rectal suppository 10 mg WI QDAY PRN c onstipation 01/26/24 02/29/24 History nutritional supplements 1 ea PO BID wound healing 03/04/24 History sennosides 8.6 mg-docusate sodium 1 tab-cap PO DAILY c onstipation 01/26/24 Unknown History 50 mg capsule (Senna Plus) amlodipine 10 mg tablet 10 mg PO DAILY #90 tabs 06/04 Unknown Rx doxazosin 4 mg tablet 4 mg PO QHS Urinary Retentio n #90 02/27/24 Unknown Rx tabs insulin glargine 100 unit/mL (3 18 unit (0.18 mL) subc ut QAM #15 mL 03/05/24 Unknown Rx mL) subcutaneous pen (Lantus Solostar U-100 Insulin) acetaminophen 500 mg tablet 1,000 mg PO Q8 PRN fever o r pain 03/09/24 Unknown History ezetimibe 10 mg tablet 10 mg PO QDAY 03/29/24 Unkno wn History latanoprost 0.005 % eye drops 1 drp EACH EYE QHS eyes 03/29/24 Unknown History losartan 25 mg tablet 25 mg PO QDAY 03/29/24 Unkno wn History multivitamin 1 tab PO QAM 03/29/24 Unknow n History polyethylene glycol 3350 17 17 g PO QDAY 03/29/24 Unkn own History gram/dose oral powder blood sugar diagnostic (Blood #300 ea 04/10/24 Unknown Rx Glucose Test strips) blood-glucose meter #1 ea 04/10/24 Unknown Rx insulin lispro 100 unit/mL 1 sliding scale dose subcut 04/10/24 Unknown Rx subcutaneous pen (Admelog SoloStar USEASDIRECTD #15 mL U-100 Insulin lispro) lancets #300 ea 04/10/24 Unknown Rx pen needle, diabetic 32 gauge x #400 ea 04/10/24 Unkno wn Rx (BD Sanaz 2nd Gen Pen Needle) Allergy/AdvReac Type Severity Reaction Status Date / Time meloxicam (From Mobic) Allergy Intermediate itching Verified 03/22/24 13:54 pravastatin (From Pravachol) AdvReac Mild myalgia Verified 03/22/24 13:54 cholestyramine AdvReac hypoglycemi Verified 03/22/24 13:54 a Family History Mother Hypertension Cancer Father Heart disease Diabetes Surgical History History of hip replacement (~01/13/24) Status post hip hemiarthroplasty History of prostate surgery H/O transurethral resection of prostate (01/12/23) Hx of cystoscopy Hx of total knee arthroplasty History of hydrocelectomy History of cataract surgery History of lumbar laminectomy History of herniorrhaphy History of stent insertion of renal artery (08/05/21) Social History household members: spouse and other details: Abigail is his 's name housing: house number of children: 2 current occupational status: retired and other details: worked for [employer] prior to retiring leisure activities: other Smoking Status: Never smoker Electronic Cigarette Use: not used second hand exposure: No alcohol intake: former substance use type: does not use what type of physical activity do you participate in: walking frequency: 1-2 times per week inés/protestant: None seatbelt use: always Physical Exam Const alert, oriented x3, no apparent distress and well nourished General Appearance: cooperative, comfortable and well developed Orientation / Consciousness: awake, oriented to person, oriented to place and oriented to time Exam Limitations: physical limitations HEENT normocephalic and head/scalp atraumatic Head and Scalp: normal to inspection, normocephalic and atraumatic Face and Sinus: normal facial exam Nose: external nose normal External Ear: external ears normal Eyes EOMs intact bilaterally General Eye: normal appearance of both eyes Resp normal respiratory effort, normal air movement, no retractions and no use of accessory muscles Extremity no calf tenderness General Extremity: Negative for clubbing or cyanosis Skin Wound Narrative: An ulceration is noted on the patient's left posterior heel. There is no sign of infection or cellulitis. Dimensions are documented elsewhere. This appears to represent a stage III pressure ulceration. The ulceration extends through all layers of the dermis and into the subcutaneous tissues. Ulcer margins are not well beveled. Dimensions are documented elsewhere. There is no sign of infection or cellulitis. There is a mild amount of bioburden, though evidence of pink, healthy granulation tissue. Neuro oriented x3 and CN's II-XII intact bilaterally Neuro Narrative: The patient suffers from left hemiparesis/hemiplegia. Sensorium / Orientation: awake, alert, oriented to person, oriented to place and oriented to time Psych Appearance: grossly normal and appropriate Attitude: calm Activity / Motor Behavior: appropriate eye contact Speech: normal speech Mood & Affect: euthymic mood Thought Process: normal thought process Thought Content: normal thought content Attention / Concentration: attention grossly intact Debridement Note Debridement Note Wound debrided: Left posterior heel ulceration Laterality: Left Wound Grade/Stage: Stage III pressure ulceration Type of Debridement: Excisional debridement Anesthesia Used: 5% Lidocaine Gel Depth: Down to and including healthy tissue and in the subcutaneous layer Percentage of wound debrided: 100 Instrument Used: 5mm curette Tissue Removed: Bioburden Severity: Fat Layer Exposed Amount of bleeding with debridement: Mild Bleeding Controlled with: Compression and gauze Patient tolerated procedure: Patient tolerated procedure well Debridement Free Text: Following a routine excisional debridement, which was well-tolerated by the patient, an EpiFix allograft was applied. This represented the 6th such allograft application. An 18 mm circular EpiFix allograft was selected. Upon removal from its sterile packaging, the allograft was cut and fashioned to the appropriate size and shape. It was applied t opically in the appropriate orientation. 85% of the allograft was utilized. Once in place, the allograft was covered with Adaptic Touch, which was then secured using Steri-Strips. A dry sterile gauze dressing was then applied. The procedure was well-tolerated. Post-Debridement Measurements and Additional Note: Post-Debridement Measurements/Treatment - Nurse 1 - General Ulcer Assessment Start: 04/17/24 11:37 Freq: Status: Active Protocol: NADJA.BETO Activity Type Activity Date Activity User E-sign Co-sign Detail Recorded Client Recorded Date Recorded By Document 04/17/24 11:37 KW [id number] 04/17/24 11:43 KW Document 04/24/24 10:57 KW [id number] 04/24/24 11:08 KW 04/17/24 04/24/24 11:37 10:57 - Today's Visit Information Type of service Follow-up Visit Follow-up Visit (Physician/MEAT CUTTER APPRENTICE (Physician/MEAT CUTTER APPRENTICE ) ) Arrival Mode Wheelchair Wheelchair Accompanied by Patient Identification Verified (Name & Yes Yes ) Vital Signs Temperature (97.8 F-99.1 F) 97.5 F L 97.1 F L Temperature Source Temporal Temporal Pulse Rate (60-100) 55 L 63 Pulse Location Monitor Monitor Respiratory Rate (12-18) 16 18 Respiratory rate source Observation Observation Oxygen Delivery Method Room Air Room Air Blood Pressure (90/60-120/80) 145/51 H 116/56 L Blood Pressure Mean 82 76 Source Monitor Monitor Position Semi-Fowlers Semi-Fowlers Blood Pressure Location Left Arm Left Forearm History Since Last Visit- (Skip if this is Patient's initial visit) Have you changed medications since your No No last visit? Any new allergies or adverse reactions No No Had a fall/change in ADL's that may No No increase risk of falls Signs or symptoms of abuse and/or No No neglect since last visit Have you been in the hospital since your No No last visit? Has dressing in place as prescribed Yes Yes Has compression in place as prescribed Yes Yes Has offloadiing in place as prescribed Yes N/A Experienced any changes in pain level or No No management Left Footwear Surgical Shoe Regular Shoe with pressure relief insole Right Footwear Regular Shoe Regular Shoe Pain Scale: 0-10 Numeric Is Patient Pain Free? Yes Yes WC - Nurse 1 - General Ulcer Measurement Start: 04/17/24 11:37 Freq: Status: Active Protocol: Activity Type Activity Date Activity User E-sign Co-sign Detail Recorded Client Recorded Date Recorded By Document 04/17/24 11:37 KW [id number] 04/17/24 11:43 KW Document 04/24/24 10:57 KW [id number] 04/24/24 11:08 KW 04/17/24 04/24/24 11:37 10:57 Wound Center Nurse 1 #2 right ankle -Current Size (cm) - Length 0.3 0.1 -Current Size (cm) - Width 0.1 0.1 -Current Size (cm) - Depth 0.1 0 -Total Square Cm 0.03 0.01 -Date of Last Picture (Recall this 04/24/24 field) -Epithelialization Large 67-100% -Exudate Amt Small -Exudate Type Serosanguineous -Wound Margin Distinct, Outline Attached -Granulation Amt Small (1-33%) Small (1-33%) -Granulation Quality Belgreen Belgreen -Necrosis Amt Large (67-100%) Small (1-33%) -Necrotic Tissue Type Adherent Slough Adherent Slough -Texture (Fauzia-wound Skin Appearance) Assessed, Assessed Localized Edema -Moisture (Fauzia-wound Skin Appearance) Assessed Assessed -Color (Fauzia-wound Skin Appearance) Assessed, Assessed Erythema -Temperature (Fauzia-wound Skin No Abnormality No Abnormality Appearance) (Pt Warm) (Pt Warm) -Tenderness on Palpation (Fauzia-wound No No Skin Appearance) -Ulcer Cleansing Soap and Water -Foul Odor after Cleansing No -Anesthetic Used 5% Lidocaine Gel #1 LT HEEL -Current Size (cm) - Length 0.4 0.6 -Current Size (cm) - Width 1.1 1 -Current Size (cm) - Depth 0.3 0.2 -Total Square Cm 0.44 0.6 -Date of Last Picture (Recall this 04/17/24 04/24/24 field) -Epithelialization Medium 34-66% -Exudate Amt Medium Small -Exudate Type Serosanguineous Serosanguineous -Wound Margin Distinct, Distinct, Outline Outline Attached Attached -Granulation Amt Small (1-33%) Large (67-100%) -Granulation Quality Belgreen Belgreen,Red -Necrosis Amt Medium (34-66%) -Necrotic Tissue Type Adherent Slough -Texture (Fauzia-wound Skin Appearance) Assessed Assessed -Moisture (Fauzia-wound Skin Appearance) Assessed Assessed -Color (Fauzia-wound Skin Appearance) Assessed Assessed -Temperature (Fauzia-wound Skin No Abnormality No Abnormality Appearance) (Pt Warm) (Pt Warm) -Tenderness on Palpation (Fauzia-wound No No Skin Appearance) -Ulcer Cleansing Soap and Water Soap and Water -Foul Odor after Cleansing No No -Anesthetic Used 5% Lidocaine 5% Lidocaine Gel Gel Right Calf (cm) 34 Left Calf (cm) 31 WC - Nurse 2 - General Ulcer CM Notes Start: 04/17/24 11:37 Freq: Status: Active Protocol: Activity Type Activity Date Activity User E-sign Co-sign Detail Recorded Client Recorded Date Recorded By Document 04/17/24 12:07 [id number] 04/17/24 12:09 Document 04/24/24 11:36 [id number] 04/24/24 11:45 04/17/24 04/24/24 12:07 11:36 Wound Center Nurse 2 #2 right ankle -Correct Patient No No -Correct Side, Site, Position No No -Correct Procedure No No -Procedure Performed No No -Wound/Ulcer Outcome Not Healed #1 LT HEEL -Time 11:36 -Correct Patient Yes Yes -Correct Side, Site, Position Yes Yes -Correct Procedure Yes Yes -Procedure Performed Yes Yes -Type of Procedure Debridement Debridement -Clinical Debridement Subcutaneous Subcutaneous -Tissue Removed Subcutaneous Subcutaneous -Post Debridement (cm) - Length 1.2 0.8 -Post Debridement (cm) - Width 0.6 0.9 -Post Debridement (cm) - Depth 0.1 0.2 -Total Square (Post) (cm) 0.72 0.72 -Area of Debridement (cm) - Length 1.2 0.8 -Area of Debridement (cm) - Width 0.6 0.9 -Total Square (Area) (cm) 0.72 0.72 -Tunneling No No -Undermining/Tunneling No No -Circular Undermining No No -Wound/Ulcer Outcome Not Healed Not Healed -Ulcer Cleansing Rinsed/ Rinsed/ Irrigated with Irrigated with Saline Saline -Foul Odor after Cleansing No No -Bioengineered Tissue Yes Yes -Type of Bioengineered Tissue Epifix 18mm Epifix 18mm Disc Disc -Expiration Date 11/12/28 11/12/28 -Product Lot Number [id number] -Percent Used 100 100 -Lot number of Saline Used [id number] -Bleeding Controlled with Pressure Pressure -Treatment Response Procedure Procedure Tolerated Well Tolerated Well -Offloading No No -Debridement - Subq, 1st 20sq cm No No -Apply Skin Sub - 1st 25 sq cm - Feet 1 1 -Epifix 18mm Disc 3 3 Pain Scale: 0-10 Numeric Is Patient Pain Free? Yes Yes - Nurse 3 - General Ulcer D/C NN Start: 04/17/24 11:37 Freq: Status: Active Protocol: Activity Type Activity Date Activity User E-sign Co-sign Detail Recorded Client Recorded Date Recorded By Document 04/17/24 12:11 [id number] 04/17/24 12:13 KW Document 04/24/24 11:46 [id number] 04/24/24 11:47 04/17/24 04/24/24 12:11 11:46 Wound Care Center Nurse 3 #1 LT HEEL -Ulcer Cleansing Rinsed/ Irrigated with Saline -Foul Odor after Cleansing No -Primary Dressing Applied Silicone Border Silicone Border Foam 4x4 Foam 6x6 -Silicone Border Foam 4x4 1 -Silicone Border Foam 6x6 1 Right -Tubular Bandage Single Layer -Size of Tubigrip Used Size D -Size D ($) 1 Left -Tubular Bandage Single Layer -Size of Tubigrip Used Size D -Size D ($) 1 Pain Scale: 0-10 Numeric Is Patient Pain Free? Yes Yes - Visit Discharge Discharge Condition Stable Stable Ambulatory Status Wheelchair Wheelchair Transportation Private Auto Accompanied by Medication Reconcilliation completed & No Yes provided to patient/care provider Clinical Summary of Care Provided Yes Yes Charges/Coding Multi Select Codes Visit Charges Office Visit/Consults: 30015 OV L4 New 45 min Integumentary Integumentary CPT Codes: 16745 Skin sub graft face/nk/hf/g Assessment/Plan Assessment/Plan (1) Non-pressure chronic ulcer of left heel and midfoot with fat layer exposed: CODE(S): L97.422 - Non-pressure chronic ulcer of left heel and midfoot with fat layer exposed (2) Diabetic polyneuropathy: CODE(S): E11.42 - Type 2 diabetes mellitus with diabetic polyneuropathy QUALIFIERS: Diabetes mellitus type: type 2 Qualified Code(s): E11.42 - Type 2 diabetes mellitus with diabetic polyneuropathy (3) Type 2 diabetes mellitus with hyperglycemia: CODE(S): E11.65 - Type 2 diabetes mellitus with hyperglycemia (4) Atrial fibrillation: CODE(S): I48.91 - Unspecified atrial fibrillation (5) Left hemiplegia: CODE(S): G81.94 - Hemiplegia, unspecified affecting left nondominant side (6) Stroke with left hemiparesis: (7) Peripheral vascular occlusive disease: CODE(S): I73.9 - Peripheral vascular disease, unspecified (8) Right renal artery stenosis: CODE(S): I70.1 - Atherosclerosis of renal artery (9) Essential hypertension: CODE(S): I10 - Essential (primary) hypertension (10) Hyperlipidemia: CODE(S): E78.5 - Hyperlipidemia, unspecified QUALIFIERS: Hyperlipidemia type: mixed hyperlipidemia Qualified Code(s): E78.2 - Mixed hyperlipidemia (11) BPH (benign prostatic hyperplasia): CODE(S): N40.0 - Benign prostatic hyperplasia without lower urinary tract symptoms (12) PAF (paroxysmal atrial fibrillation): CODE(S): I48.0 - Paroxysmal atrial fibrillation (13) Polyneuropathy: CODE(S): G62.9 - Polyneuropathy, unspecified (14) Iron deficiency: CODE(S): E61.1 - Iron deficiency (15) History of stroke: CODE(S): Z86.73 - Personal history of transient ischemic attack (TIA), and cerebral infarction without residual deficits (16) Unable to ambulate: CODE(S): R26.2 - Difficulty in walking, not elsewhere classified (17) Chronic anemia: CODE(S): D64.9 - Anemia, unspecified (18) Debility: CODE(S): R53.81 - Other malaise (19) Diabetes mellitus: CODE(S): E11.9 - Type 2 diabetes mellitus without complications (20) Glaucoma: CODE(S): H40.9 - Unspecified glaucoma (21) BPH (benign prostatic hyperplasia): CODE(S): N40.0 - Benign prostatic hyperplasia without lower urinary tract symptoms (22) Hyperlipidemia: CODE(S): E78.5 - Hyperlipidemia, unspecified (23) Debility: CODE(S): R53.81 - Other malaise (24) Chronic kidney disease, stage 3b: CODE(S): N18.32 - Chronic kidney disease, stage 3b (25) Hypertension: CODE(S): I10 - Essential (primary) hypertension (26) Iron deficiency anemia: CODE(S): D50.9 - Iron deficiency anemia, unspecified QUALIFIERS: Iron deficiency anemia type: unspecified iron deficiency Qualified Code(s): D50.9 - Iron deficiency anemia, unspecified (27) Diabetes mellitus: CODE(S): E11.9 - Type 2 diabetes mellitus without complications (28) Chronic venous stasis: CODE(S): I87.8 - Other specified disorders of veins (29) Heart failure with preserved ejection fraction: CODE(S): I50.30 - Unspecified diastolic (congestive) heart failure PLAN: Plan This is an 83-year-old male with left hemiplegia and multiple other pre-existing medical problems. He suffers from a stage III pressure ulceration on his left posterior heel. An EpiFix allograft was applied today, and is to remain in rojelio ce until the patient's return visit in 1 week. Today's Apligraf application represents the 6th such Apligraf application. The patient is to continue using a Prevalon boot for offloading purposes. Frequent repositioning has been advised. Nutritional optimization has been recommended, as well as optimization of his glycemic control. The patient is to return in 1 week for reevaluation. Total time: 40 minutes
[2024-05-01 10:56] VITALS: BP 156/53; PULSE 55; RESP 18; TEMP 36.3
--- NOTE | 2024-05-02 08:10 | NURSING ---
PHOTO 05/01/24 right Lat Ankle
--- NOTE | 2024-05-02 08:11 | NURSING ---
PHOTO 05/01/24 Left Heel
--- NOTE | 2024-05-03 15:17 | PCM.WC.HP ---
History of Present Illness Date of Service: 05/01/24 Chief Complaint: Left posterior heel ulceration History of Wound: This is an 83-year-old male with a pressure ulceration of the left posterior heel. The patient has multiple pre-existing medical problems which are listed herein. The patient has been recently treated by means of a cellular tissue product, EpiFix. Offloading has been by means of a Prevalon boot. The patient is known to be diabetic, and his last hemoglobin A1c was 8.8 on March 29, 2024. The patient is also known to be anemic. [facility] Medical History Non-pressure chronic ulcer of left heel and midfoot with fat layer exposed CHF (congestive heart failure) COVID-19 virus infection Diabetes mellitus, type 2 Osteoarthritis Uncontrolled hypertension Closed displaced fracture of left femoral neck History of CHF (congestive heart failure) Obstructive sleep apnea Neuropathic pain Physical debility Fall Current use of insulin Back pain due to injury Restless legs Syncope Kidney stones PAF (paroxysmal atrial fibrillation) Anemia Weakness Wears glasses Depression Rash Insulin dependent diabetes mellitus Walker as ambulation aid Prostate disease Low iron Restless legs Stroke/cerebrovascular accident Dietary restriction Non-smoker BiPAP (biphasic positive airway pressure) dependence History of edema History of echocardiogram Cardiology follow-up encounter BPH (benign prostatic hyperplasia) Congestive heart failure Pneumonia Incontinence Limb weakness Unsteadiness Chronic anemia Hypertension Coronary artery disease Right renal artery stenosis Fatigue Ventricular tachycardia seen on photo offset printer (02/20/21) Peripheral vascular occlusive disease Type 2 diabetes mellitus Hyperlipidemia Essential hypertension History of CVA (cerebrovascular accident) (12/2020) Obstructive Sleep Apnea-Hypopnea Syndrome Absent pedal pulses Skin lesion of face Normocytic normochromic anemia Depression Dysphagia Proteinuria due to type 2 diabetes mellitus Facial droop due to acute stroke Acute left-sided muscle weakness Osteoarthritis Right pontine CVA Recurrent inguinal hernia of right side without obstruction or gangrene Home Medications ?Medication ?Instructions ?Recorded ?Last Taken ?Type Handicap Placard #1 ea 02/12/21 Unknown Rx sertraline 50 mg tablet 50 mg PO QHS mood #90 tabs 02/23/23 12/14/23 Rx gabapentin 100 mg capsule 100 mg PO BID pain #180 caps 05/04/23 12/15/23 Rx gabapentin 300 mg capsule 300 mg PO 2100 pain #90 caps 05/04/23 12/14/23 Rx potassium chloride 20 mEq 20 meq PO DAILYCM supplement 30 08/01/23 12/14/23 Rx tablet,extended release(part/cryst) days #30 tabs clopidogrel 75 mg tablet (Plavix) 75 mg PO DAILY blood thinner #90 08/12/23 12/15/23 Rx tabs amiodarone 200 mg tablet 100 mg (1/2 x 200 mg) PO DAILY BP 08/16/23 Unknown Rx #45 tabs furosemide 40 mg tablet 40 mg PO DAILY Fluid retention #90 08/22/23 12/14/23 Rx TABLETS hydralazine 100 mg tablet 100 mg PO TID BP #270 tabs 09/22/23 12/15/23 Rx oxybutynin chloride 15 mg 15 mg PO DAILY bladder 10/28/23 12/15/23 History tablet,extended release 24 hr pramipexole 0.125 mg tablet 0.125 mg PO QHS parkinsons #90 tabs 11/08/23 12/14/23 Rx cyanocobalamin (vitamin B-12) 1,000 mcg IM QMONTH #0 mL 01/09/24 02/20/24 Rx 1,000 mcg/mL injection solution bisacodyl 10 mg rectal suppository 10 mg DC QDAY PRN constipation 01/26/24 02/29/24 History nutritional supplements 1 ea PO BID wound healing 01/26/24 03/04/24 History sennosides 8.6 mg-docusate sodium 1 tab-cap PO DAILY constipation 01/26/24 Unknown History 50 mg capsule (Senna Plus) amlodipine 10 mg tablet 10 mg PO DAILY #90 tabs 02/14/24 Unknown Rx doxazosin 4 mg tablet 4 mg PO QHS Urinary Retention #90 02/27/24 Unknown Rx tabs insulin glargine 100 unit/mL (3 18 unit (0.18 mL) subcut QAM #15 mL 03/05/24 Unknown Rx mL) subcutaneous pen (Lantus Solostar U-100 Insulin) acetaminophen 500 mg tablet 1,000 mg PO Q8 PRN fever or pain 03/09/24 Unknown History ezetimibe 10 mg tablet 10 mg PO QDAY 03/29/24 Unknown History latanoprost 0.005 % eye drops 1 drp EACH EYE QHS eyes 03/29/24 Unknown History losartan 25 mg tablet 25 mg PO QDAY 03/29/24 Unknown History multivitamin 1 tab PO QAM 03/29/24 Unknown History polyethylene glycol 3350 17 17 g PO QDAY 03/29/24 Unknown History gram/dose oral powder blood sugar diagnostic (Blood #300 ea 04/10/24 Unknown Rx Glucose Test strips) blood-glucose meter #1 ea 04/10/24 Unknown Rx insulin lispro 100 unit/mL 1 sliding scale dose subcut 04/10/24 Unknown Rx subcutaneous pen (Admelog SoloStar USEASDIRECTD #15 mL U-100 Insulin lispro) lancets #300 ea 04/10/24 Unknown Rx pen needle, diabetic 32 gauge x #400 ea 04/10/24 Unknown Rx (BD Sanaz 2nd Gen Pen Needle) Allergy/AdvReac Type Severity Reaction Status Date / Time meloxicam (From Mobic) Allergy Intermediate itching Verified 03/22/24 13:54 pravastatin (From Pravachol) AdvReac Mild myalgia Verified 03/22/24 13:54 cholestyramine AdvReac hypoglycemi Verified 03/22/24 13:54 a Family History Mother Hypertension Cancer Father Heart disease Diabetes Surgical History History of hip replacement (~01/13/24) Status post hip hemiarthroplasty History of prostate surgery H/O transurethral resection of prostate (01/12/23) Hx of cystoscopy Hx of total knee arthroplasty History of hydrocelectomy History of cataract surgery History of lumbar laminectomy History of herniorrhaphy History of stent insertion of renal artery (08/05/21) Social History household members: spouse and other details: Abigail is his 's name housing: house number of children: 2 current occupational status: retired and other details: worked for [employer] prior to retiring leisure activities: other Smoking Status: Never smoker Electronic Cigarette Use: not used second hand exposure: No alcohol intake: former substance use type: does not use what type of physical activity do you participate in: walking frequency: 1-2 times per week inés/faith: None seatbelt use: always Physical Exam Const alert, oriented x3, no apparent distress and well nourished Constitutional Narrative: The patient suffers from left hemiparesis. General Appearance: cooperative, comfortable and well developed Orientation / Consciousness: awake, oriented to person, oriented to place and oriented to time Exam Limitations: physical limitations HEENT normocephalic and head/scalp atraumatic Head and Scalp: normal to inspection, normocephalic and atraumatic Face and Sinus: normal facial exam Nose: external nose normal External Ear: external ears normal Eyes EOMs intact bilaterally General Eye: normal appearance of both eyes Resp normal respiratory effort, normal air movement, no retractions and no use of accessory muscles Extremity no calf tenderness General Extremity: Negative for clubbing or cyanosis Skin Wound Narrative: An ulceration is noted on the patient's left posterior heel. There is no sign of infection or cellulitis. Dimensions are documented elsewhere. This appears to represent a stage III pressure ulceration. The ulceration extends through all layers of the dermis and into the subcutaneous tissues. Ulcer margins are not well beveled. Dimensions are documented elsewhere. There is no sign of infection or cellulitis. There is a small amount of bioburden, though evidence of pink, healthy granulation tissue. Neuro oriented x3 and CN's II-XII intact bilaterally Neuro Narrative: The patient suffers from left hemiparesis/hemiplegia. Sensorium / Orientation: awake, alert, oriented to person, oriented to place and oriented to time Psych Appearance: grossly normal and appropriate Attitude: calm Activity / Motor Behavior: appropriate eye contact Speech: normal speech Mood & Affect: euthymic mood Thought Process: normal thought process Thought Content: normal thought content Attention / Concentration: attention grossly intact Debridement Note Debridement Note Wound debrided: Left posterior heel ulceration Laterality: Left Wound Grade/Stage: Stage III pressure ulceration Type of Debridement: Excisional debridement Anesthesia Used: 5% Lidocaine Gel Depth: Down to and including healthy tissue and in the subcutaneous layer Percentage of wound debrided: 100 Instrument Used: 5mm curette Tissue Removed: Bioburden Severity: Fat Layer Exposed Amount of bleeding with debridement: Mild Bleeding Controlled with: Compression and gauze Patient tolerated procedure: Patient tolerated procedure well Debridement Free Text: Following a routine excisional debridement, which was well-tolerated by the patient, an EpiFix allograft was applied. This represented the 7th such allograft application. An 18 mm circular EpiFix allograft was selected. Upon removal from its sterile packaging, the allograft was cut and fashioned to the appropriate size and shape. It was applied topically in the appropriate orientation. 85% of the allograft was utilized. Once in place, the allograft was covered with Adaptic Touch, which was then secured using Steri-Strips. A dry sterile gauze dressing was then applied. The procedure was well-tolerated. Post-Debridement Measurements and Additional Note: Post-Debridement Measurements/Treatment - Nurse 1 - General Ulcer Assessment Start: 04/17/24 11:37 Freq: Status: Active Protocol: WC.LOWEXT Activity Type Activity Date Activity User E-sign Co-sign Detail Recorded Client Recorded Date Recorded By Document 04/17/24 11:37 KW [id number] 04/17/24 11:43 KW Document 04/24/24 10:57 KW [id number] 04/24/24 11:08 KW Document 05/01/24 10:56 KW [id number] 05/01/24 11:06 KW 04/17/24 04/24/24 05/01/24 11:37 10:57 10:56 - Today's Visit Information Type of service Follow-up Visit Follow-up Visit Follow-up Visit (Physician/RN PROGRESSIVE CARE UNIT (Physician/RN PROGRESSIVE CARE UNIT (Physician/RN PROGRESSIVE CARE UNIT ) ) ) Arrival Mode Wheelchair Wheelchair Wheelchair Transfer Assistance Manual Accompanied by Patient Identification Verified (Name & Yes Yes Yes ) Patient Requires Transmission-Based No Precautions Vital Signs Temperature (97.8 F-99.1 F) 97.5 F L 97.1 F L 97.4 F L Temperature Source Temporal Temporal Temporal Pulse Rate (60-100) 55 L 63 55 L Pulse Location Monitor Monitor Monitor Respiratory Rate (12-18) 16 18 18 Respiratory rate source Observation Observation Observation Oxygen Delivery Method Room Air Room Air Blood Pressure (90/60-120/80) 145/51 H 116/56 L 156/53 H Blood Pressure Mean 82 76 87 Source Monitor Monitor Monitor Position Semi-Fowlers Semi-Fowlers Semi-Fowlers Blood Pressure Location Left Arm Left Forearm Left Arm History Since Last Visit- (Skip if this is Patient's initial visit) Have you changed medications since your No No No last visit? Any new allergies or adverse reactions No No No Had a fall/change in ADL's that may No No No increase risk of falls Signs or symptoms of abuse and/or No No No neglect since last visit Have you been in the hospital since your No No No last visit? Has dressing in place as prescribed Yes Yes Yes Has compression in place as prescribed Yes Yes No Has offloadiing in place as prescribed Yes N/A No Experienced any changes in pain level or No No No management Left Footwear Surgical Shoe Regular Shoe Surgical Shoe with pressure with pressure relief insole relief insole Right Footwear Regular Shoe Regular Shoe Slipper Pain Scale: 0-10 Numeric Is Patient Pain Free? Yes Yes Yes WC - Nurse 1 - General Ulcer Measurement Start: 04/17/24 11:37 Freq: Status: Active Protocol: Activity Type Activity Date Activity User E-sign Co-sign Detail Recorded Client Recorded Date Recorded By Document 04/17/24 11:37 KW [id number] 04/17/24 11:43 KW Document 04/24/24 10:57 KW [id number] 04/24/24 11:08 KW Document 05/01/24 10:56 KW [id number] 05/01/24 11:06 KW 04/17/24 04/24/24 05/01/24 11:37 10:57 10:56 Wound Center Nurse 1 #2 right ankle -Combined with other wound No -Current Size (cm) - Length 0.3 0.1 0.1 -Current Size (cm) - Width 0.1 0.1 0.1 -Current Size (cm) - Depth 0.1 0 0.1 -Total Square Cm 0.03 0.01 0.01 -Date of Last Picture (Recall this 04/24/24 field) -Photo Taken Yes -Epithelialization Large 67-100% -Tunneling No -Undermining/Tunneling No -Circular Undermining No -Exudate Amt Small Small -Exudate Type Serosanguineous Serosanguineous -Wound Margin Distinct, Distinct, Outline Outline Attached Attached -Granulation Amt Small (1-33%) Small (1-33%) Medium (34-66%) -Granulation Quality [place] -Slough/Fibrin Yes -Necrosis Amt Large (67-100%) Small (1-33%) Medium (34-66%) -Necrotic Tissue Type Adherent Slough Adherent Slough Adherent Slough -Structure Exposed N/A -Texture (Fauzia-wound Skin Appearance) Assessed, Assessed Assessed Localized Edema -Moisture (Fauzia-wound Skin Appearance) Assessed Assessed Assessed,Dry/ Scaly -Color (Fauzia-wound Skin Appearance) Assessed, Assessed Assessed Erythema -Temperature (Fauzia-wound Skin No Abnormality No Abnormality No Abnormality Appearance) (Pt Warm) (Pt Warm) (Pt Warm) -Tenderness on Palpation (Fauzia-wound No No No Skin Appearance) -Ulcer Cleansing Soap and Water Wound Cleanser -Foul Odor after Cleansing No No -Anesthetic Used 5% Lidocaine 5% Lidocaine Gel Gel #1 LT HEEL -Combined with other wound No -Current Size (cm) - Length 0.4 0.6 0.8 -Current Size (cm) - Width 1.1 1 1 -Current Size (cm) - Depth 0.3 0.2 0.4 -Total Square Cm 0.44 0.6 0.8 -Date of Last Picture (Recall this 04/17/24 04/24/24 field) -Epithelialization Medium 34-66% -Tunneling No -Undermining/Tunneling No -Circular Undermining No -Exudate Amt Medium Small Medium -Exudate Type Serosanguineous Serosanguineous Serosanguineous -Wound Margin Distinct, Distinct, Distinct, Outline Outline Outline Attached Attached Attached -Granulation Amt Small (1-33%) Large (67-100%) Medium (34-66%) -Granulation Quality [place] -Slough/Fibrin Yes -Necrosis Amt Medium (34-66%) Small (1-33%) -Necrotic Tissue Type Adherent Slough Adherent Slough -Structure Exposed N/A -Texture (Fauzia-wound Skin Appearance) Assessed Assessed Assessed -Moisture (Fauzia-wound Skin Appearance) Assessed Assessed Dry/Scaly -Color (Fauzia-wound Skin Appearance) Assessed Assessed Assessed -Temperature (Fauzia-wound Skin No Abnormality No Abnormality No Abnormality Appearance) (Pt Warm) (Pt Warm) (Pt Warm) -Tenderness on Palpation (Fauzia-wound No No No Skin Appearance) -Ulcer Cleansing Soap and Water Soap and Water Wound Cleanser -Foul Odor after Cleansing No No No -Anesthetic Used 5% Lidocaine 5% Lidocaine 5% Lidocaine Gel Gel Gel Lower Limb Edema Present Yes Right Calf (cm) 34 33.8 Right Ankle (cm) 20.2 Left Calf (cm) 31 29.8 Left Ankle (cm) 22 WC - Nurse 2 - General Ulcer CM Notes Start: 04/17/24 11:37 Freq: Status: Active Protocol: Activity Type Activity Date Activity User E-sign Co-sign Detail Recorded Client Recorded Date Recorded By Document 04/17/24 12:07 [id number] 04/17/24 12:09 JF Document 04/24/24 11:36 JF [id number] 04/24/24 11:45 JF Document 05/01/24 11:18 [id number] 05/01/24 11:24 JF 04/17/24 04/24/24 05/01/24 12:07 11:36 11:18 Wound Center Nurse 2 #2 right ankle -Correct Patient No No No -Correct Side, Site, Position No No No -Correct Procedure No No No -Procedure Performed No No No -Wound/Ulcer Outcome Not Healed Healed- Epithelialized #1 LT HEEL -Time 11:36 11:18 -Correct Patient Yes Yes Yes -Correct Side, Site, Position Yes Yes Yes -Correct Procedure Yes Yes Yes -Procedure Performed Yes Yes Yes -Type of Procedure Debridement Debridement Debridement -Clinical Debridement Subcutaneous Subcutaneous Subcutaneous -Tissue Removed Subcutaneous Subcutaneous Subcutaneous -Post Debridement (cm) - Length 1.2 0.8 0.8 -Post Debridement (cm) - Width 0.6 0.9 0.9 -Post Debridement (cm) - Depth 0.1 0.2 0.2 -Total Square (Post) (cm) 0.72 0.72 0.72 -Area of Debridement (cm) - Length 1.2 0.8 0.8 -Area of Debridement (cm) - Width 0.6 0.9 0.9 -Total Square (Area) (cm) 0.72 0.72 0.72 -Tunneling No No No -Undermining/Tunneling No No No -Circular Undermining No No No -Wound/Ulcer Outcome Not Healed Not Healed Not Healed -Ulcer Cleansing Rinsed/ Rinsed/ Rinsed/ Irrigated with Irrigated with Irrigated with Saline Saline Saline -Foul Odor after Cleansing No No No -Bioengineered Tissue Yes Yes Yes -Type of Bioengineered Tissue Epifix 18mm Epifix 18mm Epifix 18mm Disc Disc Disc -Expiration Date 11/12/28 11/12/28 10/12/28 -Product Lot Number [id number] -Percent Used 100 100 100 -Lot number of Saline Used [id number] -Bleeding Controlled with Pressure Pressure Pressure -Treatment Response Procedure Procedure Procedure Tolerated Well Tolerated Well Tolerated Well -Offloading No No Yes -Type of Offloading Surgical Shoe -Assistive Device(s) Wheelchair -Debridement - Subq, 1st 20sq cm No No No -Apply Skin Sub - 1st 25 sq cm - Feet 1 1 1 -Epifix 18mm Disc 3 3 3 Pain Scale: 0-10 Numeric Is Patient Pain Free? Yes Yes Yes - Nurse 3 - General Ulcer D/C NN Start: 04/17/24 11:37 Freq: Status: Active Protocol: Activity Type Activity Date Activity User E-sign Co-sign Detail Recorded Client Recorded Date Recorded By Document 04/17/24 12:11 [id number] 04/17/24 12:13 Document 04/24/24 11:46 [id number] 04/24/24 11:47 Document 05/01/24 11:40 [id number] 05/01/24 11:41 04/17/24 04/24/24 05/01/24 12:11 11:46 11:40 Wound Care Center Nurse 3 #1 LT HEEL -Ulcer Cleansing Rinsed/ Irrigated with Saline -Foul Odor after Cleansing No -Primary Dressing Applied Silicone Border Silicone Border Silicone Border Foam 4x4 Foam 6x6 Foam 4x4 -Silicone Border Foam 4x4 1 1 -Silicone Border Foam 6x6 1 Right -Tubular Bandage Single Layer -Size of Tubigrip Used Size D -Size D ($) 1 Left -Tubular Bandage Single Layer Single Layer -Size of Tubigrip Used Size D Size D -Size D ($) 1 1 Pain Scale: 0-10 Numeric Is Patient Pain Free? Yes Yes Yes - Visit Discharge Discharge Condition Stable Stable Stable Ambulatory Status Wheelchair Wheelchair Wheelchair Transportation Private Auto Accompanied by Medication Reconcilliation completed & No Yes No provided to patient/care provider Clinical Summary of Care Provided Yes Yes Yes Lab / Micro Data Lab results narrative: Laboratory Tests 03/29/24 12:33 WBC 13.8 H Hgb 10.6 L Hct 32.6 L Plt Count 255 Sodium 137 Potassium 3.2 L Chloride 99 Carbon Dioxide 31.0 BUN 41 H Creatinine 1.50 H Glucose 225 H Hemoglobin A1c 8.8 H Calcium 9.2 Magnesium 2.0 Total Bilirubin 0.30 AST 7 L ALT 11 L Alkaline Phosphatase 77 Total Protein 7.2 Albumin 2.7 L Charges/Coding Procedures Integumentary 150xxx-152xx: [id number] Skin sub graft face/nk/hf/g Assessment/Plan Assessment/Plan (1) Non-pressure chronic ulcer of left heel and midfoot with fat layer exposed: CODE(S): L97.422 - Non-pressure chronic ulcer of left heel and midfoot with fat layer exposed (2) Diabetic polyneuropathy: CODE(S): E11.42 - Type 2 diabetes mellitus with diabetic polyneuropathy QUALIFIERS: Diabetes mellitus type: type 2 Qualified Code(s): E11.42 - Type 2 diabetes mellitus with diabetic polyneuropathy (3) Type 2 diabetes mellitus with hyperglycemia: CODE(S): E11.65 - Type 2 diabetes mellitus with hyperglycemia (4) Atrial fibrillation: CODE(S): I48.91 - Unspecified atrial fibrillation (5) Left hemiplegia: CODE(S): G81.94 - Hemiplegia, unspecified affecting left nondominant side (6) Stroke with left hemiparesis: (7) Peripheral vascular occlusive disease: CODE(S): I73.9 - Peripheral vascular disease, unspecified (8) Right renal artery stenosis: CODE(S): I70.1 - Atherosclerosis of renal artery (9) Essential hypertension: CODE(S): I10 - Essential (primary) hypertension (10) Hyperlipidemia: CODE(S): E78.5 - Hyperlipidemia, unspecified QUALIFIERS: Hyperlipidemia type: mixed hyperlipidemia Qualified Code(s): E78.2 - Mixed hyperlipidemia (11) BPH (benign prostatic hyperplasia): CODE(S): N40.0 - Benign prostatic hyperplasia without lower urinary tract symptoms (12) PAF (paroxysmal atrial fibrillation): CODE(S): I48.0 - Paroxysmal atrial fibrillation (13) Polyneuropathy: CODE(S): G62.9 - Polyneuropathy, unspecified (14) Iron deficiency: CODE(S): E61.1 - Iron deficiency (15) History of stroke: CODE(S): Z86.73 - Personal history of transient ischemic attack (TIA), and cerebral infarction without residual deficits (16) Unable to ambulate: CODE(S): R26.2 - Difficulty in walking, not elsewhere classified (17) Chronic anemia: CODE(S): D64.9 - Anemia, unspecified (18) Debility: CODE(S): R53.81 - Other malaise (19) Diabetes mellitus: CODE(S): E11.9 - Type 2 diabetes mellitus without complications (20) Glaucoma: CODE(S): H40.9 - Unspecified glaucoma (21) BPH (benign prostatic hyperplasia): CODE(S): N40.0 - Benign prostatic hyperplasia without lower urinary tract symptoms (22) Hyperlipidemia: CODE(S): E78.5 - Hyperlipidemia, unspecified (23) Debility: CODE(S): R53.81 - Other malaise (24) Chronic kidney disease, stage 3b: CODE(S): N18.32 - Chronic kidney disease, stage 3b (25) Hypertension: CODE(S): I10 - Essential (primary) hypertension (26) Iron deficiency anemia: CODE(S): D50.9 - Iron deficiency anemia, unspecified QUALIFIERS: Iron deficiency anemia type: unspecified iron deficiency Qualified Code(s): D50.9 - Iron deficiency anemia, unspecified (27) Diabetes mellitus: CODE(S): E11.9 - Type 2 diabetes mellitus without complications (28) Chronic venous stasis: CODE(S): I87.8 - Other specified disorders of veins (29) Heart failure with preserved ejection fraction: CODE(S): I50.30 - Unspecified diastolic (congestive) heart failure PLAN: Plan This is an 83-year-old male with left hemiparesis and multiple other pre-existing medical problems. He suffers from a stage III pressure ulceration on his left posterior heel. An EpiFix allograft was applied today, and is to remain in place until the patient's return visit in 1 week. Today's Apligraf application represents the 7th such Apligraf application. The patient is to continue using a Prevalon boot for offloading purposes. Frequent repositioning has been advised. Nutritional optimization has been recommended, as well as optimization of his glycemic control. The patient's most recent laboratory studies from March 29, 2024, have been reviewed. In addition, a noninvasive lower extremity arterial study was performed on April 10, 2024, the results of which indicate evidence of moderate arterial occlusive disease at ankle level bilaterally, and [id number] arterial occlusive disease at digital level bilaterally. The arterial occlusive disease appears to be multisegmental in nature. A referral for consultation is to be made to Dr. Gumaro Tapia, Vascular Surgeon, who has been involved in the patient's care in the past. The patient is to return to the Wound Center in 1 week for reevaluation. Total time: 26 minutes
[2024-05-08 11:35] VITALS: BP 146/51; PULSE 56; RESP 16; TEMP 35.9
--- NOTE | 2024-05-08 11:46 | PN.PCM_ITS ---
History of Present Illness Date of Service: 05/08/24 Chief Complaint: Left posterior heel ulceration History of Wound: This is an 83-year-old male with a pressure ulceration of the left posterior heel. The patient has multiple pre-existing medical problems which are listed herein. The patient has been recently treated by means of a cellular tissue product, EpiFix. Offloading has been by means of a Prevalon boot. The patient is known to be diabetic, and his last hemoglobin A1c was 8.8 on March 29, 2024. The patient is also known to be anemic. Objective Data Objective Data Vital Signs: Vital Signs Temp Pulse Resp BP O2 Del Method 96.6 F L 56 L 16 146/51 H Room Air 05/08/24 11:35 05/08/24 11:35 05/08/24 11:35 05/08/24 11:35 04/24/24 10:57 Oxygen Delivery Method Room Air Physical Exam Narrative Vascular: Dorsalis pedis posterior tibial pulses diminished bilateral lower extremity 1 L4. Some atrophic skin changes noted to bilateral feet with skin thinning and shiny taut appearance. Absent digital hair growth noted. Neurologic: Light touch protective sensation diminished to bilateral lower extremities. Dermatologic: Full-thickness ulceration noted to the plantar left heel with a mixed fibronecrotic base. Postdebridement wound demonstrated a 50-50 granular/necrotic base. No evidence of deep probing undermining or acute signs of infection noted today. 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 Patient uses bracing to left lower extremity via dropfoot assist brace. Debridement Note Debridement Note Post-Debridement Measurements and Additional Note: Post-Debridement Measurements/Treatment - Nurse 1 - General Ulcer Assessment Start: 04/17/24 11:37 Freq: Status: Active Protocol: NADJA.LOWMARLENY Activity Type Activity Date Activity User E-sign Co-sign Detail Recorded Client Recorded Date Recorded By Document 04/17/24 11:37 KW [id number] 04/17/24 11:43 KW Document 04/24/24 10:57 KW [id number] 04/24/24 11:08 KW Document 05/01/24 10:56 KW [id number] 05/01/24 11:06 KW Document 05/08/24 11:35 JF [id number] 05/08/24 11:37 JF 04/17/24 04/24/2425 11:37 10:57 10:56 - Today's Visit Information Type of service Follow-up Visit Follow-up Visit Follow-up Visit (Physician/ADMINISTRATIVE LIBRARY ASSISTANT (Physician/ADMINISTRATIVE LIBRARY ASSISTANT (Physician/ADMINISTRATIVE LIBRARY ASSISTANT ) ) ) Arrival Mode Wheelchair Wheelchair Wheelchair Transfer Assistance Manual Accompanied by Patient Identification Verified (Name & Yes Yes Yes ) Patient Requires Transmission-Based No Precautions Vital Signs Temperature (97.8 F-99.1 F) 97.5 F L 97.1 F L 97.4 F L Temperature Source Temporal Temporal Temporal Pulse Rate (60-100) 55 L 63 55 L Pulse Location Monitor Monitor Monitor Respiratory Rate (12-18) 16 18 18 Respiratory rate source Observation Observation Observation Oxygen Delivery Method Room Air Room Air Blood Pressure (90/60-120/80) 145/51 H 116/56 L 156/53 H Blood Pressure Mean (mm Hg) 82 76 87 Source Monitor Monitor Monitor Position Semi-Fowlers Semi-Fowlers Semi-Fowlers Blood Pressure Location Left Arm Left Forearm Left Arm History Since Last Visit- (Skip if this is Patient's initial visit) Have you changed medications since your No No No last visit? Any new allergies or adverse reactions No No No Had a fall/change in ADL's that may No No No increase risk of falls Signs or symptoms of abuse and/or No No No neglect since last visit Have you been in the hospital since your No No No last visit? Has dressing in place as prescribed Yes Yes Yes Has compression in place as prescribed Yes Yes No Has offloadiing in place as prescribed Yes N/A No Experienced any changes in pain level or No No No management Left Footwear Surgical Shoe Regular Shoe Surgical Shoe with pressure with pressure relief insole relief insole Right Footwear Regular Shoe Regular Shoe Slipper Pain Scale: 0-10 Numeric Is Patient Pain Free? Yes Yes Yes 05/08/24 11:35 - Today's Visit Information Type of service Follow-up Visit (Physician/ADMINISTRATIVE LIBRARY ASSISTANT ) Arrival Mode Wheelchair Transfer Assistance Manual Accompanied by Patient Identification Verified (Name & Yes ) Patient Requires Transmission-Based No Precautions Vital Signs Temperature (97.8 F-99.1 F) 96.6 F L Temperature Source Temporal Pulse Rate (60-100) 56 L Pulse Location Monitor Respiratory Rate (12-18) 16 Respiratory rate source Observation Oxygen Delivery Method Blood Pressure (90/60-120/80) 146/51 H Blood Pressure Mean (mm Hg) 82 Source Monitor Position Semi-Fowlers Blood Pressure Location Left Arm History Since Last Visit- (Skip if this is Patient's initial visit) Have you changed medications since your No last visit? Any new allergies or adverse reactions No Had a fall/change in ADL's that may No increase risk of falls Signs or symptoms of abuse and/or No neglect since last visit Have you been in the hospital since your No last visit? Has dressing in place as prescribed Yes Has compression in place as prescribed Yes Has offloadiing in place as prescribed Yes Experienced any changes in pain level or No management Left Footwear Surgical Shoe with pressure relief insole Right Footwear Slipper Pain Scale: 0-10 Numeric Is Patient Pain Free? Yes WC - Nurse 1 - General Ulcer Measurement Start: 04/17/24 11:37 Freq: Status: Active Protocol: Activity Type Activity Date Activity User E-sign Co-sign Detail Recorded Client Recorded Date Recorded By Document 04/17/24 11:37 KW [id number] 04/17/24 11:43 KW Document 04/24/24 10:57 KW [id number] 04/24/24 11:08 KW Document 05/01/24 10:56 KW [id number] 05/01/24 11:06 KW Document 05/08/24 11:35 JF [id number] 05/08/24 11:37 JF 04/17/24 04/24/24 05/01/24 11:37 10:57 10:56 Wound Center Nurse 1 #2 right ankle -Combined with other wound No -Current Size (cm) - Length 0.3 0.1 0.1 -Current Size (cm) - Width 0.1 0.1 0.1 -Current Size (cm) - Depth 0.1 0 0.1 -Total Square Cm 0.03 0.01 0.01 -Date of Last Picture (Recall this 04/24/24 field) -Photo Taken Yes -Epithelialization Large 67-100% -Tunneling No -Undermining/Tunneling No -Circular Undermining No -Exudate Amt Small Small -Exudate Type Serosanguineous Serosanguineous -Wound Margin Distinct, Distinct, Outline Outline Attached Attached -Granulation Amt Small (1-33%) Small (1-33%) Medium (34-66%) -Granulation Quality [place] -Slough/Fibrin Yes -Necrosis Amt Large (67-100%) Small (1-33%) Medium (34-66%) -Necrotic Tissue Type Adherent Slough Adherent Slough Adherent Slough -Structure Exposed N/A -Texture (Fauzia-wound Skin Appearance) Assessed, Assessed Assessed Localized Edema -Moisture (Fauzia-wound Skin Appearance) Assessed Assessed Assessed,Dry/ Scaly -Color (Fauzia-wound Skin Appearance) Assessed, Assessed Assessed Erythema -Temperature (Fauzia-wound Skin No Abnormality No Abnormality No Abnormality Appearance) (Pt Warm) (Pt Warm) (Pt Warm) -Tenderness on Palpation (Fauzia-wound No No No Skin Appearance) -Ulcer Cleansing Soap and Water Wound Cleanser -Foul Odor after Cleansing No No -Anesthetic Used 5% Lidocaine 5% Lidocaine Gel Gel #1 LT HEEL -Combined with other wound No -Current Size (cm) - Length 0.4 0.6 0.8 -Current Size (cm) - Width 1.1 1 1 -Current Size (cm) - Depth 0.3 0.2 0.4 -Total Square Cm 0.44 0.6 0.8 -Date of Last Picture (Recall this 04/17/24 04/24/24 field) -Photo Taken -Epithelialization Medium 34-66% -Tunneling No -Undermining/Tunneling No -Circular Undermining No -Exudate Amt Medium Small Medium -Exudate Type Serosanguineous Serosanguineous Serosanguineous -Wound Margin Distinct, Distinct, Distinct, Outline Outline Outline Attached Attached Attached -Granulation Amt Small (1-33%) Large (67-100%) Medium (34-66%) -Granulation Quality [place] -Slough/Fibrin Yes -Necrosis Amt Medium (34-66%) Small (1-33%) -Necrotic Tissue Type Adherent Slough Adherent Slough -Structure Exposed N/A -Texture (Fauzia-wound Skin Appearance) Assessed Assessed Assessed -Moisture (Fauzia-wound Skin Appearance) Assessed Assessed Dry/Scaly -Color (Fauzia-wound Skin Appearance) Assessed Assessed Assessed -Temperature (Fauzia-wound Skin No Abnormality No Abnormality No Abnormality Appearance) (Pt Warm) (Pt Warm) (Pt Warm) -Tenderness on Palpation (Fauzia-wound No No No Skin Appearance) -Ulcer Cleansing Soap and Water Soap and Water Wound Cleanser -Foul Odor after Cleansing No No No -Anesthetic Used 5% Lidocaine 5% Lidocaine 5% Lidocaine Gel Gel Gel Lower Limb Edema Present Yes Right Calf (cm) 34 33.8 Right Ankle (cm) 20.2 Left Calf (cm) 31 29.8 Left Ankle (cm) 22 05/08/24 11:35 Wound Center Nurse 1 #2 right ankle -Combined with other wound -Current Size (cm) - Length -Current Size (cm) - Width -Current Size (cm) - Depth -Total Square Cm -Date of Last Picture (Recall this field) -Photo Taken -Epithelialization -Tunneling -Undermining/Tunneling -Circular Undermining -Exudate Amt -Exudate Type -Wound Margin -Granulation Amt -Granulation Quality -Slough/Fibrin -Necrosis Amt -Necrotic Tissue Type -Structure Exposed -Texture (Fauzia-wound Skin Appearance) -Moisture (Fauzia-wound Skin Appearance) -Color (Fauzia-wound Skin Appearance) -Temperature (Fauzia-wound Skin Appearance) -Tenderness on Palpation (Fauzia-wound Skin Appearance) -Ulcer Cleansing -Foul Odor after Cleansing -Anesthetic Used #1 LT HEEL -Combined with other wound No -Current Size (cm) - Length 0.5 -Current Size (cm) - Width 0.7 -Current Size (cm) - Depth 0.1 -Total Square Cm 0.35 -Date of Last Picture (Recall this field) -Photo Taken Yes -Epithelialization Small 1-33% -Tunneling No -Undermining/Tunneling No -Circular Undermining No -Exudate Amt Small -Exudate Type Serosanguineous -Wound Margin Flat & Intact -Granulation Amt Large (67-100%) -Granulation Quality Red -Slough/Fibrin Yes -Necrosis Amt Small (1-33%) -Necrotic Tissue Type Adherent Slough -Structure Exposed N/A -Texture (Fauzia-wound Skin Appearance) Assessed -Moisture (Fauzia-wound Skin Appearance) Maceration -Color (Fauzia-wound Skin Appearance) Assessed -Temperature (Fauzia-wound Skin No Abnormality Appearance) (Pt Warm) -Tenderness on Palpation (Fauzia-wound No Skin Appearance) -Ulcer Cleansing Wound Cleanser -Foul Odor after Cleansing No -Anesthetic Used 5% Lidocaine Gel Lower Limb Edema Present No Right Calf (cm) Right Ankle (cm) Left Calf (cm) Left Ankle (cm) WC - Nurse 2 - General Ulcer CM Notes Start: 04/17/24 11:37 Freq: Status: Active Protocol: Activity Type Activity Date Activity User E-sign Co-sign Detail Recorded Client Recorded Date Recorded By Document 04/17/24 12:07 JF [id number] 04/17/24 12:09 Document 04/24/24 11:36 [id number] 04/24/24 11:45 JF Document 05/01/24 11:18 [id number] 05/01/24 11:24 JF 04/17/24 04/24/24 05/01/24 12:07 11:36 11:18 Wound Center Nurse 2 #2 right ankle -Correct Patient No No No -Correct Side, Site, Position No No No -Correct Procedure No No No -Procedure Performed No No No -Wound/Ulcer Outcome Not Healed Healed- Epithelialized #1 LT HEEL -Time 11:36 11:18 -Correct Patient Yes Yes Yes -Correct Side, Site, Position Yes Yes Yes -Correct Procedure Yes Yes Yes -Procedure Performed Yes Yes Yes -Type of Procedure Debridement Debridement Debridement -Clinical Debridement Subcutaneous Subcutaneous Subcutaneous -Tissue Removed Subcutaneous Subcutaneous Subcutaneous -Post Debridement (cm) - Length 1.2 0.8 0.8 -Post Debridement (cm) - Width 0.6 0.9 0.9 -Post Debridement (cm) - Depth 0.1 0.2 0.2 -Total Square (Post) (cm) 0.72 0.72 0.72 -Area of Debridement (cm) - Length 1.2 0.8 0.8 -Area of Debridement (cm) - Width 0.6 0.9 0.9 -Total Square (Area) (cm) 0.72 0.72 0.72 -Tunneling No No No -Undermining/Tunneling No No No -Circular Undermining No No No -Wound/Ulcer Outcome Not Healed Not Healed Not Healed -Ulcer Cleansing Rinsed/ Rinsed/ Rinsed/ Irrigated with Irrigated with Irrigated with Saline Saline Saline -Foul Odor after Cleansing No No No -Bioengineered Tissue Yes Yes Yes -Type of Bioengineered Tissue Epifix 18mm Epifix 18mm Epifix 18mm Disc Disc Disc -Expiration Date 11/12/28 11/12/28 10/12/28 -Product Lot Number [id number] -Percent Used 100 100 100 -Lot number of Saline Used [id number] -Bleeding Controlled with Pressure Pressure Pressure -Treatment Response Procedure Procedure Procedure Tolerated Well Tolerated Well Tolerated Well -Offloading No No Yes -Type of Offloading Surgical Shoe -Assistive Device(s) Wheelchair -Debridement - Subq, 1st 20sq cm No No No -Apply Skin Sub - 1st 25 sq cm - Feet 1 1 1 -Epifix 18mm Disc 3 3 3 Pain Scale: 0-10 Numeric Is Patient Pain Free? Yes Yes Yes - Nurse 3 - General Ulcer D/C NN Start: 04/17/24 11:37 Freq: Status: Active Protocol: Activity Type Activity Date Activity User E-sign Co-sign Detail Recorded Client Recorded Date Recorded By Document 04/17/24 12:11 [id number] 04/17/24 12:13 KW Document 04/24/24 11:46 [id number] 04/24/24 11:47 Document 05/01/24 11:40 [id number] 05/01/24 11:41 KW 04/17/24 04/24/24 05/01/24 12:11 11:46 11:40 Wound Care Center Nurse 3 #1 LT HEEL -Ulcer Cleansing Rinsed/ Irrigated with Saline -Foul Odor after Cleansing No -Primary Dressing Applied Silicone Border Silicone Border Silicone Border Foam 4x4 Foam 6x6 Foam 4x4 -Silicone Border Foam 4x4 1 1 -Silicone Border Foam 6x6 1 Right -Tubular Bandage Single Layer -Size of Tubigrip Used Size D -Size D ($) 1 Left -Tubular Bandage Single Layer Single Layer -Size of Tubigrip Used Size D Size D -Size D ($) 1 1 Pain Scale: 0-10 Numeric Is Patient Pain Free? 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 Patient is hospice care and DNR CCA. Arterial studies demonstrated moderate arterial disease, this was discussed with patient. Wounds are healing well patient has no acute signs of ischemia we will continue local wound care. If wound due to crisis will plan for vascular surgery referral. Patient reports his goal is to get wound healing and then return to ambulation. Patient reports he is not receiving therapy at the facility due to hospice care. Patient wishes to proceed with therapy and attempt to return to ambulation. Patient has left heel ulceration which is not infected and noted to be a Jonas class II. Excisional debridement to heel wound performed using a #5mm dermal curette of all non-vaible tissue down to and including subcutaneous tissue. hemostasis obtained with light compression. topical anesthesia use. patient tolerated procedure well. pre and post debridement measurements documented in nursing notes. We have recommended Sanjeev for nutrient supplementation. Today wound was dressed with 18 mm disc EpiFix graft to the left heel. This was stabilized with overlying wound veil and Steri-Strips. Entire graft graft was used, no waste. Overlying dry sterile dressing and Tubigrip applied to left lower extremity Patient will follow-up in 1 week Patient is to offload heels bilaterally with Prevalon boots when supine in bed and when sitting in wheelchair. Patient recently had a hip replacement which is why developed pressure ulceration first place. Patient is minimally ambulatory and is unable to get t herapy due to DNR CCA status. Plan is for wound healing then return to ambulatory function. At this time I have recommended that the patient does work with therapy but he is having insurance issues have recommended further discussion with his orthopedic surgeon regarding weightbearing status and ability to perform physical therapy. (2) Non-pressure chronic ulcer of other part of left foot with fat layer exposed: CODE(S): L97.522 - Non-pressure chronic ulcer of other part of left foot with fat layer exposed
== END 2024-05-11 23:59 | disposition home or self-care (01) ==
LOC: WC 11:30
PROVIDERS: PCP Internal Medicine; Referring Provider Podiatrist; Visit Provider Podiatrist
DX: E11.621 Type 2 diabetes mellitus with foot ulcer (principal); L97.422 Non-pressure chronic ulcer of left heel and midfoot with fat layer exposed; G81.94 Hemiplegia, unspecified affecting left nondominant side; I50.32 Chronic diastolic (congestive) heart failure; I13.0 Hypertensive heart and chronic kidney disease with heart failure and stage 1 through stage 4 chronic kidney disease, or unspecified chronic kidney disease; I48.0 Paroxysmal atrial fibrillation; E11.39 Type 2 diabetes mellitus with other diabetic ophthalmic complication; Z79.4 Long term (current) use of insulin; E11.42 Type 2 diabetes mellitus with diabetic polyneuropathy; E11.51 Type 2 diabetes mellitus with diabetic peripheral angiopathy without gangrene; E11.22 Type 2 diabetes mellitus with diabetic chronic kidney disease; E11.65 Type 2 diabetes mellitus with hyperglycemia; N18.32 Chronic kidney disease, stage 3b; I87.8 Other specified disorders of veins; I70.1 Atherosclerosis of renal artery; E78.2 Mixed hyperlipidemia; Z66 Do not resuscitate; Z79.02 Long term (current) use of antithrombotics/antiplatelets; Z79.899 Other long term (current) drug therapy; Z86.73 Personal history of transient ischemic attack (TIA), and cerebral infarction without residual deficits
CPT/HCPCS: 15275; Q4186

== ENCOUNTER 2024-06-05 11:00 | Outpatient (RCR) | payer MEDICARE, SELFPAY ==
[2024-05-12 01:24] VITALS: BP 146/51; PULSE 56; RESP 16; TEMP 35.9
[2024-05-15 11:29] VITALS: BP 133/39; PULSE 60; RESP 18; TEMP 35.8
--- NOTE | 2024-05-15 11:59 | PCM.WC.PN ---
History of Present Illness Date of Service: 05/15/24 Chief Complaint: Left posterior heel ulceration History of Wound: This is an 83-year-old male with a pressure ulceration of the left posterior heel. The patient has multiple pre-existing medical problems which are listed herein. The patient has been recently treated by means of a cellular tissue product, EpiFix. Offloading has been by means of a Prevalon boot. The patient is known to be diabetic, and his last hemoglobin A1c was 8.8 on March 29, 2024. The patient is also known to be anemic. Objective Data Objective Data Vital Signs: Vital Signs Temp Pulse Resp BP O2 Del Method 96.5 F L 60 18 133/39 H Room Air 05/15/24 11:05/15/24 11:05/15/24 11:05/15/24 11:05/15/24 11:29 Oxygen Delivery Method Room Air Physical Exam Narrative Vascular: Dorsalis pedis posterior tibial pulses diminished bilateral lower extremity 1 L4. Some atrophic skin changes noted to bilateral feet with skin thinning and shiny taut appearance. Absent digital hair growth noted. Neurologic: Light touch protective sensation diminished to bilateral lower extremities. Dermatologic: Full-thickness ulceration noted to the plantar left heel with a mixed fibronecrotic base. Postdebridement wound demonstrated a 50-50 granular/necrotic base. No evidence of deep probing undermining or acute signs of infection noted today. 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 Patient uses bracing to left lower extremity via dropfoot assist brace. Debridement Note Debridement Note Post-Debridement Measurements and Additional Note: Post-Debridement Measurements/Treatment - Nurse 1 - General Ulcer Assessment Start: 05/15/24 11:29 Freq: Status: Active Protocol: WC.LOWEXT Activity Type Activity Date Activity User E-sign Co-sign Detail Recorded Client Recorded Date Recorded By Document 05/15/24 11:29 KW [id number] 05/15/24 11:31 KW 05/15/24 11:29 - Today's Visit Information Type of service Follow-up Visit (Physician/PROPULSION ENGINEER ) Arrival Mode Wheelchair Accompanied by Patient Identification Verified (Name & Yes ) Vital Signs Temperature (97.8 F-99.1 F) 96.5 F L Temperature Source Temporal Pulse Rate (60-100) 60 Pulse Location Monitor Respiratory Rate (12-18) 18 Respiratory rate source Observation Oxygen Delivery Method Room Air Blood Pressure (90/60-120/80) 133/39 H Blood Pressure Mean (mm Hg) 70 Source Monitor Position Semi-Fowlers Blood Pressure Location Left Arm History Since Last Visit- (Skip if this is Patient's initial visit) Have you changed medications since your No last visit? Any new allergies or adverse reactions No Had a fall/change in ADL's that may No increase risk of falls Signs or symptoms of abuse and/or No neglect since last visit Have you been in the hospital since your No last visit? Has dressing in place as prescribed Yes Has compression in place as prescribed Yes Has offloadiing in place as prescribed Yes Experienced any changes in pain level or No management Left Footwear Regular Shoe Right Footwear Regular Shoe Pain Scale: 0-10 Numeric Is Patient Pain Free? Yes WC - Nurse 1 - General Ulcer Measurement Start: 05/15/24 11:29 Freq: Status: Active Protocol: Activity Type Activity Date Activity User E-sign Co-sign Detail Recorded Client Recorded Date Recorded By Document 05/15/24 11:29 KW [id number] 05/15/24 11:31 KW 05/15/24 11:29 Wound Center Nurse 1 #1 LT HEEL -Current Size (cm) - Length 1.2 -Current Size (cm) - Width 1.5 -Current Size (cm) - Depth 0 -Total Square Cm 1.80 -Date of Last Picture (Recall this 05/15/24 field) -Exudate Amt Small -Exudate Type Serosanguineous -Wound Margin Distinct, Outline Attached -Granulation Amt Small (1-33%) -Granulation Quality [place] -Necrosis Amt Large (67-100%) -Necrotic Tissue Type Adherent Slough -Texture (Fauzia-wound Skin Appearance) Assessed -Moisture (Fauzia-wound Skin Appearance) Assessed,Dry/ Scaly -Color (Fauzia-wound Skin Appearance) Assessed -Temperature (Fauzia-wound Skin No Abnormality Appearance) (Pt Warm) -Tenderness on Palpation (Fauzia-wound No Skin Appearance) -Ulcer Cleansing Soap and Water -Foul Odor after Cleansing No -Anesthetic Used 5% Lidocaine Gel Assessment/Plan Assessment/Plan (1) Diabetic polyneuropathy: 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 Patient is hospice care and DNR CCA. Arterial studies demonstrated moderate arterial disease, this was discussed with patient. Wounds are healing well patient has no acute signs of ischemia we will continue local wound care. If wound due to crisis will plan for vascular surgery referral. Patient reports his goal is to get wound healing and then return to ambulation. Patient reports he is not receiving therapy at the facility due to hospice care. Patient wishes to proceed with therapy and attempt to return to ambulation. Patient has left heel ulceration which is not infected and noted to be a Jonas class II. Excisional debridement to heel wound performed using a #5mm dermal curette of all non-vaible tissue down to and including subcutaneous tissue. hemostasis obtained with light compression. topical anesthesia use. patient tolerated procedure well. pre and post debridement measurements documented in nursing notes. We have recommended Sanjeev for nutrient supplementation. Today wound was dressed with 18 mm disc EpiFix graft to the left heel. This was stabilized with overlying wound veil and Steri-Strips. Entire graft graft was used, no waste. Overlying dry sterile dressing and Tubigrip applied to left lower extremity Patient will follow-up in 1 week Patient is to offload heels bilaterally with Prevalon boots when supine in bed and when sitting in wheelchair. Patient recently had a hip replacement which is why developed pressure ulceration first place. Patient is minimally ambulatory and is unable to get therapy due to DNR CCA status. Plan is for wound healing then return to ambulatory function. At this time I have recommended that the patient does work with therapy but he is having insurance issues have recommended further discussion with his orthopedic surgeon regarding weightbearing status and ability to perform physical therapy. (2) Non-pressure chronic ulcer of other part of left foot with fat layer exposed: CODE(S): L97.522 - Non-pressure chronic ulcer of other part of left foot with fat layer exposed
--- NOTE | 2024-05-16 14:13 | WC ---
PHOTO 05/15/24 LEFT HEEL
[2024-05-22 11:36] VITALS: BP 129/56; PULSE 62; RESP 18; TEMP 36
--- NOTE | 2024-05-22 11:51 | PCM.WC.PN ---
History of Present Illness Date of Service: 05/22/24 Chief Complaint: Left posterior heel ulceration History of Wound: This is an 83-year-old male with a pressure ulceration of the left posterior heel. The patient has multiple pre-existing medical problems which are listed herein. The patient has been recently treated by means of a cellular tissue product, EpiFix. Offloading has been by means of a Prevalon boot. The patient is known to be diabetic, and his last hemoglobin A1c was 8.8 on March 29, 2024. The patient is also known to be anemic. Objective Data Objective Data Vital Signs: Vital Signs Temp Pulse Resp BP O2 Del Method 96.8 F L 62 18 129/56 H Room Air 05/22/24 11:36 05/22/24 11:36 05/22/24 11:36 05/22/24 11:36 05/15/24 11:29 Oxygen Delivery Method Room Air Physical Exam Narrative Vascular: Dorsalis pedis posterior tibial pulses diminished bilateral lower extremity 1 L4. Some atrophic skin changes noted to bilateral feet with skin thinning and shiny taut appearance. Absent digital hair growth noted. Neurologic: Light touch protective sensation diminished to bilateral lower extremities. Dermatologic: Full-thickness ulceration noted to the plantar left heel with a mixed fibronecrotic base. Postdebridement wound demonstrated a 50-50 granular/necrotic base. No evidence of deep probing undermining or acute signs of infection noted today. 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 Patient uses bracing to left lower extremity via dropfoot assist brace. Debridement Note Debridement Note Post-Debridement Measurements and Additional Note: Post-Debridement Measurements/Treatment - Nurse 1 - General Ulcer Assessment Start: 05/15/24 11:29 Freq: Status: Active Protocol: WC.LOWEXT Activity Type Activity Date Activity User E-sign Co-sign Detail Recorded Client Recorded Date Recorded By Document 05/15/24 11:29 KW [id number] 05/15/24 11:31 KW Document 05/22/24 11:36 RB [id number] 05/22/24 11:38 RB 05/15/24 05/22/24 11:29 11:36 - Today's Visit Information Type of service Follow-up Visit Follow-up Visit (Physician/SLAB LIFTING ENGINEER (Physician/SLAB LIFTING ENGINEER ) ) Arrival Mode Wheelchair Wheelchair Transfer Assistance Manual Accompanied by Patient Identification Verified (Name & Yes Yes ) Patient Requires Transmission-Based No Precautions Vital Signs Temperature (97.8 F-99.1 F) 96.5 F L 96.8 F L Temperature Source Temporal Temporal Pulse Rate (60-100) 60 62 Pulse Location Monitor Monitor Respiratory Rate (12-18) 18 18 Respiratory rate source Observation Observation Oxygen Delivery Method Room Air Blood Pressure (90/60-120/80) 133/39 H 129/56 H Blood Pressure Mean (mm Hg) 70 80 Source Monitor Monitor Position Semi-Fowlers Sitting Blood Pressure Location Left Arm Right Arm History Since Last Visit- (Skip if this is Patient's initial visit) Have you changed medications since your No No last visit? Any new allergies or adverse reactions No No Had a fall/change in ADL's that may No No increase risk of falls Signs or symptoms of abuse and/or No No neglect since last visit Have you been in the hospital since your No No last visit? Has dressing in place as prescribed Yes Yes Has compression in place as prescribed Yes Yes Has offloadiing in place as prescribed Yes Yes Experienced any changes in pain level or No No management Left Footwear Regular Shoe Right Footwear Regular Shoe Pain Scale: 0-10 Numeric Is Patient Pain Free? Yes Yes WC - Nurse 1 - General Ulcer Measurement Start: 05/15/24 11:29 Freq: Status: Active Protocol: Activity Type Activity Date Activity User E-sign Co-sign Detail Recorded Client Recorded Date Recorded By Document 05/15/24 11:29 KW [id number] 05/15/24 11:31 KW Document 05/22/24 11:36 RB [id number] 05/22/24 11:38 RB 05/15/24 05/22/24 11:29 11:36 Wound Center Nurse 1 #1 LT HEEL -Combined with other wound No -Current Size (cm) - Length 1.2 0.2 -Current Size (cm) - Width 1.5 0.5 -Current Size (cm) - Depth 0 0.2 -Total Square Cm 1.80 0.10 -Date of Last Picture (Recall this 05/15/24 field) -Photo Taken Yes -Tunneling No -Undermining/Tunneling No -Circular Undermining No -Exudate Amt Small Medium -Exudate Type Serosanguineous Serosanguineous -Wound Margin Distinct, Distinct, Outline Outline Attached Attached -Granulation Amt Small (1-33%) Large (67-100%) -Granulation Quality [place] -Slough/Fibrin Yes -Necrosis Amt Large (67-100%) Medium (34-66%) -Necrotic Tissue Type Adherent Slough Adherent Slough -Structure Exposed N/A -Texture (Fauzia-wound Skin Appearance) Assessed Callus -Moisture (Fauzia-wound Skin Appearance) Assessed,Dry/ Maceration Scaly -Color (Fauzia-wound Skin Appearance) Assessed Assessed -Temperature (Fauzia-wound Skin No Abnormality No Abnormality Appearance) (Pt Warm) (Pt Warm) -Tenderness on Palpation (Fauzia-wound No No Skin Appearance) -Ulcer Cleansing Soap and Water Wound Cleanser -Foul Odor after Cleansing No No -Anesthetic Used 5% Lidocaine 5% Lidocaine Gel Gel Lower Limb Edema Present Yes Right Calf (cm) 30.5 Right Ankle (cm) 18.5 Left Calf (cm) 27.5 Left Ankle (cm) 19.5 WC - Nurse 2 - General Ulcer CM Notes Start: 05/15/24 11:29 Freq: Status: Active Protocol: Activity Type Activity Date Activity User E-sign Co-sign Detail Recorded Client Recorded Date Recorded By Document 05/15/24 11:58 DS [id number] 05/15/24 12:01 DS 05/15/24 11:58 Wound Center Nurse 2 #1 LT HEEL -Time 11:55 -Correct Patient Yes -Correct Side, Site, Position Yes -Correct Procedure Yes -Procedure Performed Yes -Type of Procedure Debridement -Clinical Debridement Subcutaneous -Tissue Removed Subcutaneous -Post Debridement (cm) - Length 0.4 -Post Debridement (cm) - Width 0.5 -Post Debridement (cm) - Depth 0.1 -Total Square (Post) (cm) 0.20 -Area of Debridement (cm) - Length 0.4 -Area of Debridement (cm) - Width 0.5 -Total Square (Area) (cm) 0.20 -Tunneling No -Undermining/Tunneling No -Circular Undermining No -Wound/Ulcer Outcome Not Healed -Ulcer Cleansing Rinsed/ Irrigated with Saline -Foul Odor after Cleansing No -Bioengineered Tissue Yes -Type of Bioengineered Tissue Epifix 18mm Disc -Expiration Date 12/12/28 -Product Lot Number [id number] -Percent Used 100 -Lot number of Saline Used [id number] -Bleeding Controlled with Pressure -Treatment Response Procedure Tolerated Well -Offloading Yes -Type of Offloading Darco Shoe - Left -Debridement - Subq, 1st 20sq cm No -Apply Skin Sub - 1st 25 sq cm - Feet 1 -Epifix 18mm Disc 3 Pain Scale: 0-10 Numeric Is Patient Pain Free? Yes WC - Nurse 3 - General Ulcer D/C NN Start: 05/15/24 11:29 Freq: Status: Active Protocol: Activity Type Activity Date Activity User E-sign Co-sign Detail Recorded Client Recorded Date Recorded By Document 05/15/24 12:16 RB [id number] 05/15/24 12:17 RB 05/15/24 12:16 Wound Care Center Nurse 3 #1 LT HEEL -Primary Dressing Applied Silicone Border Foam 4x4 -Silicone Border Foam 4x4 1 LLE -Tubular Bandage Single Layer -Size of Tubigrip Used Size D -Size D ($) 1 Treatment Response Procedure Tolerated Well Pain Scale: 0-10 Numeric Is Patient Pain Free? 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 Patient is hospice care and DNR CCA. Arterial studies demonstrated moderate arterial disease, this was discussed with patient. Wounds are healing well patient has no acute signs of ischemia we will continue local wound care. If wound due to crisis will plan for vascular surgery referral. Patient reports his goal is to get wound healing and then return to ambulation. Patient reports he is not receiving therapy at the facility due to hospice care. Patient wishes to proceed with therapy and attempt to return to ambulation. Patient has left heel ulceration which is not infected and noted to be a Jonas class II. Excisional debridement to heel wound performed using a #5mm dermal curette of all non-vaible tissue down to and including subcutaneous tissue. hemostasis obtained with light compression. topical anesthesia use. patient tolerated procedure well. pre and post debridement measurements documented in nursing notes. We have recommended Sanjeev for nutrient supplementation. Today wound was dressed with 18 mm disc EpiFix graft to the left heel. This was stabilized with overlying wound veil and Steri-Strips. Entire graft graft was used, no waste. Overlying dry sterile dressing and Tubigrip applied to left lower extremity Patient will follow-up in 1 week Patient is to offload heels bilaterally with Prevalon boots when supine in bed and when sitting in wheelchair. Patient recently had a hip replacement which is why developed pressure ulceration first place. Patient is minimally ambulatory and is unable to get therapy due to DNR CCA status. Plan is for wound healing then return to ambulatory function. At this time I have recommended that the patient does work with therapy but he is having insurance issues have recommended further discussion with his orthopedic surgeon regarding weightbearing status and ability to perform physical therapy. (2) Non-pressure chronic ulcer of other part of left foot with fat layer exposed: CODE(S): L97.522 - Non-pressure chronic ulcer of other part of left foot with fat layer exposed
[2024-05-22 12:12] LABS: Bedside Glucose 239 mg/dL (74-106)
--- NOTE | 2024-05-24 09:53 | WC ---
PHOTO 05/22/24 LEFT HEEL
[2024-05-31 13:59] VITALS: BP 149/58; PULSE 59; RESP 16; TEMP 35.9
--- NOTE | 2024-05-31 15:25 | PCM.WC.PN ---
History of Present Illness Date of Service: 05/31/24 Chief Complaint: Left posterior heel ulceration History of Wound: This is an 83-year-old male with a pressure ulceration of the left posterior heel. The patient has multiple pre-existing medical problems which are listed herein. The patient has been recently treated by means of a cellular tissue product, EpiFix. Offloading has been by means of a Prevalon boot. The patient is known to be diabetic, and his last hemoglobin A1c was 8.8 on March 29, 2024. The patient is also known to be anemic. Subjective Subjective I am seeing Mr. Thomas today as a courtesy visit for Dr. Nieto. He received his last Epifix last week, this did come off when his dressing was removed today. He and his report the wound has made significant progress with Epifix applications. He has been wearing the Prevena boots at rest. He reports about 2 weeks ago the pain became much less. They have no new concerns today. Objective Data Objective Data Vital Signs: Vital Signs Temp Pulse Resp BP O2 Del Method 96.7 F L 59 L 16 149/58 H Room Air 05/31/24 13:59 05/31/24 13:59 05/31/24 13:59 05/31/24 13:59 05/31/24 13:59 Oxygen Delivery Method Room Air Charges/Coding Procedures Integumentary 111xxx-113xx: 95003 Kat subq tissue 20 sq cm/< Physical Exam Const alert, oriented x3 and no apparent distress Resp normal respiratory effort and no use of accessory muscles Effort and Inspection: able to speak in complete sentences Extremity General Extremity: Negative for edema Skin no wounds Wound Narrative: Stage II pressure ulceration to the left plantar heel. There was significant dried drainage around the wound edges, slough at the wound base. After debridement, 100% granular wound bed. Debridement Note Debridement Note Wound debrided: L plantar heel Laterality: Left Type of Debridement: Excisional debridement Anesthesia Used: 5% Lidocaine Gel Depth: Down to and including healthy tissue and in the subcutaneous layer Percentage of wound debrided: 100 Instrument Used: 3mm curette Tissue Removed: slough, dried/adherent drainage Severity: Fat Layer Exposed Amount of bleeding with debridement: Mild Bleeding Controlled with: Pressure Patient tolerated procedure: Patient tolerated procedure well Post-Debridement Measurements and Additional Note: Post-Debridement Measurements/Treatment WC - Nurse 1 - General Ulcer Assessment Start: 05/15/24 11:29 Freq: Status: Active Protocol: NADJA.LOWYOLANDAT Activity Type Activity Date Activity User E-sign Co-sign Detail Recorded Client Recorded Date Recorded By Document 05/15/24 11:29 KW [id number] 05/15/24 11:31 KW Document 05/22/24 11:36 RB [id number] 05/22/24 11:38 RB Document 05/31/24 13:59 KW [id number] 05/31/24 14:10 KW 05/15/24 05/22/24 05/31/24 11:29 11:36 13:59 - Today's Visit Information Type of service Follow-up Visit Follow-up Visit Follow-up Visit (Physician/RETAIL PARTS PRO (Physician/RETAIL PARTS PRO (Physician/RETAIL PARTS PRO ) ) ) Arrival Mode Wheelchair Wheelchair Walker Transfer Assistance Manual Accompanied by Patient Identification Verified (Name & Yes Yes Yes ) Patient Requires Transmission-Based No Precautions Vital Signs Temperature (97.8 F-99.1 F) 96.5 F L 96.8 F L 96.7 F L Temperature Source Temporal Temporal Temporal Pulse Rate (60-100) 60 62 59 L Pulse Location Monitor Monitor Monitor Respiratory Rate (12-18) 18 18 16 Respiratory rate source Observation Observation Observation Oxygen Delivery Method Room Air Room Air Blood Pressure (90/60-120/80) 133/39 H 129/56 H 149/58 H Blood Pressure Mean (mm Hg) 70 80 88 Source Monitor Monitor Monitor Position Semi-Fowlers Sitting Semi-Fowlers Blood Pressure Location Left Arm Right Arm Left Arm History Since Last Visit- (Skip if this is Patient's initial visit) Have you changed medications since your No No No last visit? Any new allergies or adverse reactions No No No Had a fall/change in ADL's that may No No No increase risk of falls Signs or symptoms of abuse and/or No No No neglect since last visit Have you been in the hospital since your No No No last visit? Has dressing in place as prescribed Yes Yes Yes Has compression in place as prescribed Yes Yes Yes Has offloadiing in place as prescribed Yes Yes N/A Experienced any changes in pain level or No No No management Left Footwear Regular Shoe Regular Shoe Right Footwear Regular Shoe Regular Shoe Pain Scale: 0-10 Numeric Is Patient Pain Free? Yes Yes Yes - Nurse 1 - General Ulcer Measurement Start: 05/15/24 11:29 Freq: Status: Active Protocol: Activity Type Activity Date Activity User E-sign Co-sign Detail Recorded Client Recorded Date Recorded By Document 05/15/24 11:29 KW [id number] 05/15/24 11:31 KW Document 05/22/24 11:36 RB [id number] 05/22/24 11:38 RB Document 05/31/24 13:59 KW [id number] 05/31/24 14:10 KW 05/15/24 05/22/24 05/31/24 11:29 11:36 13:59 Wound Center Nurse 1 #1 LT HEEL -Combined with other wound No -Current Size (cm) - Length 1.2 0.2 0.3 -Current Size (cm) - Width 1.5 0.5 0.3 -Current Size (cm) - Depth 0 0.2 0.1 -Total Square Cm 1.80 0.10 0.09 -Date of Last Picture (Recall this 05/15/24 05/31/24 field) -Photo Taken Yes -Tunneling No -Undermining/Tunneling No -Circular Undermining No -Exudate Amt Small Medium Small -Exudate Type Serosanguineous Serosanguineous Serosanguineous -Wound Margin Distinct, Distinct, Distinct, Outline Outline Outline Attached Attached Attached -Granulation Amt Small (1-33%) Large (67-100%) Small (1-33%) -Granulation Quality [place] -Slough/Fibrin Yes -Necrosis Amt Large (67-100%) Medium (34-66%) Large (67-100%) -Necrotic Tissue Type Adherent Slough Adherent Slough Adherent Slough -Structure Exposed N/A -Texture (Fauzia-wound Skin Appearance) Assessed Callus Assessed -Moisture (Fauzia-wound Skin Appearance) Assessed,Dry/ Maceration Assessed Scaly -Color (Fauzia-wound Skin Appearance) Assessed Assessed Assessed -Temperature (Fauzia-wound Skin No Abnormality No Abnormality No Abnormality Appearance) (Pt Warm) (Pt Warm) (Pt Warm) -Tenderness on Palpation (Fauzia-wound No No No Skin Appearance) -Ulcer Cleansing Soap and Water Wound Cleanser Soap and Water -Foul Odor after Cleansing No No No -Anesthetic Used 5% Lidocaine 5% Lidocaine 5% Lidocaine Gel Gel Gel Lower Limb Edema Present Yes Right Calf (cm) 30.5 Right Ankle (cm) 18.5 Left Calf (cm) 27.5 Left Ankle (cm) 19.5 WC - Nurse 2 - General Ulcer CM Notes Start: 05/15/24 11:29 Freq: Status: Active Protocol: Activity Type Activity Date Activity User E-sign Co-sign Detail Recorded Client Recorded Date Recorded By Document 05/15/24 11:58 DS [id number] 05/15/24 12:01 DS Document 05/22/24 11:50 JF [id number] 05/22/24 11:52 JF Document 05/31/24 14:14 GM [id number] 05/31/24 14:19 GM 05/15/24 05/22/24 05/31/24 11:58 11:50 14:14 Wound Center Nurse 2 #1 LT HEEL -Time 11:55 11:51 14:16 -Correct Patient Yes Yes Yes -Correct Side, Site, Position Yes Yes Yes -Correct Procedure Yes Yes Yes -Procedure Performed Yes Yes Yes -Type of Procedure Debridement Debridement Debridement -Clinical Debridement Subcutaneous Subcutaneous Subcutaneous -Tissue Removed Subcutaneous Subcutaneous Subcutaneous -Post Debridement (cm) - Length 0.4 0.7 0.3 -Post Debridement (cm) - Width 0.5 0.3 0.6 -Post Debridement (cm) - Depth 0.1 0.1 0.1 -Total Square (Post) (cm) 0.20 0.21 0.18 -Area of Debridement (cm) - Length 0.4 0.7 0.1 -Area of Debridement (cm) - Width 0.5 0.3 0.6 -Total Square (Area) (cm) 0.20 0.21 0.06 -Tunneling No No No -Undermining/Tunneling No No No -Circular Undermining No No No -Wound/Ulcer Outcome Not Healed Not Healed Not Healed -Ulcer Cleansing Rinsed/ Rinsed/ Rinsed/ Irrigated with Irrigated with Irrigated with Saline Saline Saline -Foul Odor after Cleansing No No No -Bioengineered Tissue Yes Yes No -Type of Bioengineered Tissue Epifix 18mm Epifix 18mm Disc Disc -Expiration Date 12/12/28 12/12/28 -Product Lot Number [id number] -Percent Used 100 100 -Lot number of Saline Used [id number] -Bleeding Controlled with Pressure Pressure Pressure -Treatment Response Procedure Procedure Procedure Tolerated Well Tolerated Well Tolerated Well -Offloading Yes Yes Yes -Type of Offloading Darco Shoe - Surgical Shoe Darco Shoe - Left Left -Assistive Device(s) Walker -Debridement - Subq, 1st 20sq cm No No Yes -Apply Skin Sub - 1st 25 sq cm - Feet 1 1 -Epifix 18mm Disc 3 3 Pain Scale: 0-10 Numeric Is Patient Pain Free? Yes Yes Yes - Nurse 3 - General Ulcer D/C NN Start: 05/15/24 11:29 Freq: Status: Active Protocol: Activity Type Activity Date Activity User E-sign Co-sign Detail Recorded Client Recorded Date Recorded By Document 05/15/24 12:16 RB [id number] 05/15/24 12:17 RB Document 05/22/24 12:03 RB [id number] 05/22/24 12:04 RB Document 05/31/24 14:36 KW [id number] 05/31/24 14:36 KW 05/15/24 05/22/24 05/31/24 12:16 12:03 14:36 Wound Care Center Nurse 3 #1 LT HEEL -Primary Dressing Applied Silicone Border Silicone Border Promogran Foam 4x4 Foam 6x6 Corina Matter, Silicone Border Foam 4x4 -Promogran [place] Matter 1 -Silicone Border Foam 4x4 1 2 -Silicone Border Foam 6x6 1 LLE -Tubular Bandage Single Layer Single Layer -Size of Tubigrip Used Size D Size E -Size D ($) 1 -Size E ($) 1 -Stockings Yes: pt own tubigrip single layer Treatment Response Procedure Procedure Tolerated Well Tolerated Well Pain Scale: 0-10 Numeric Is Patient Pain Free? 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 The wound has a granular base without any evidence of ischemia or infection today. It has reduced in size. For wound care: (1) Wash the area with soap and water, pat to dry (2) Apply lightly-moistened Corina to the wond base (3) Cover with Mepilex or ExcelSAP foam border dressing (4) Change every 2-3 days, but more frequently if the dressing becomes soiled We discussed the importance of offloading pressure to the area and he was encouraged to continue to utilize the foam boots and to float his heels when resting. He did have PAD noted on his arterial studies; however, wound has been making positive progress. Agree that it is very reasonable to continue with local wound care and close monitoring; if ever inflow becomes a concern, happy to see him in consult over in the vascular office. He will return next week to see Dr. Nieto.
--- NOTE | 2024-06-01 09:07 | WC ---
PHOTO 05/31/24 LEFT HEEL ULCER
[2024-06-05 10:59] VITALS: BP 152/58; PULSE 58; RESP 14; TEMP 35.9
--- NOTE | 2024-06-05 11:25 | PN.PCM_ITS ---
History of Present Illness Date of Service: 06/05/24 Chief Complaint: Left posterior heel ulceration History of Wound: This is an 83-year-old male with a pressure ulceration of the left posterior heel. The patient has multiple pre-existing medical problems which are listed herein. The patient has been recently treated by means of a cellular tissue product, EpiFix. Offloading has been by means of a Prevalon boot. The patient is known to be diabetic, and his last hemoglobin A1c was 8.8 on March 29, 2024. The patient is also known to be anemic. Progress of Wound: S ? Subjective: The patient presents for follow-up evaluation of a left heel ulceration. The ulcer is healing well with no signs of infection. The patient denies pain or new concerns. They continue to offload using a Prevalon heel offloader. PMH: Left-sided hemiplegia, diabetes mellitus, peripheral neuropathy. Current Treatment: Offloading with Prevalon heel offloader. Objective Data Objective Data Vital Signs: Vital Signs Temp Pulse Resp BP O2 Del Method 96.6 F L 58 L 14 152/58 H Room Air 06/05/24 10:59 06/05/24 10:59 06/05/24 10:59 06/05/24 10:59 05/31/24 13:59 Oxygen Delivery Method Room Air Physical Exam Narrative * General: No acute distress. * Skin/Wound: * Left heel ulceration: Healing, no erythema, no purulent drainage, some maceration noted. No debridement performed. * Plan to dress with Betadine and dry sterile dressing (DSD). * Extremities: * Bilateral fingernails and toenails thickened with evidence of dystrophic changes. * Nails debrided due to high-risk Q9 findings. Debridement Note Debridement Note Post-Debridement Measurements and Additional Note: Post-Debridement Measurements/Treatment NADJA - Nurse 1 - General Ulcer Assessment Start: 05/15/24 11:29 Freq: Status: Active Protocol: CARYN Activity Type Activity Date Activity User E-sign Co-sign Detail Recorded Client Recorded Date Recorded By Document 05/15/24 11:29 KW [id number] 05/15/24 11:31 KW Document 05/22/24 11:36 RB [id number] 05/22/24 11:38 RB Document 05/31/24 13:59 KW [id number] 05/31/24 14:10 KW Document 06/05/24 10:59 ML [id number] 06/05/24 11:08 ML 05/15/24 05/22/24 05/31/24 11:29 11:36 13:59 - Today's Visit Information Type of service Follow-up Visit Follow-up Visit Follow-up Visit (Physician/CATHODE MAKER (Physician/CATHODE MAKER (Physician/CATHODE MAKER ) ) ) Arrival Mode Wheelchair Wheelchair Walker Transfer Assistance Manual Accompanied by Patient Identification Verified (Name & Yes Yes Yes ) Patient Requires Transmission-Based No Precautions Vital Signs Temperature (97.8 F-99.1 F) 96.5 F L 96.8 F L 96.7 F L Temperature Source Temporal Temporal Temporal Pulse Rate (60-100) 60 62 59 L Pulse Location Monitor Monitor Monitor Respiratory Rate (12-18) 18 18 16 Respiratory rate source Observation Observation Observation Oxygen Delivery Method Room Air Room Air Blood Pressure (90/60-120/80) 133/39 H 129/56 H 149/58 H Blood Pressure Mean (mm Hg) 70 80 88 Source Monitor Monitor Monitor Position Semi-Fowlers Sitting Semi-Fowlers Blood Pressure Location Left Arm Right Arm Left Arm History Since Last Visit- (Skip if this is Patient's initial visit) Have you changed medications since your No No No last visit? Any new allergies or adverse reactions No No No Had a fall/change in ADL's that may No No No increase risk of falls Signs or symptoms of abuse and/or No No No neglect since last visit Have you been in the hospital since your No No No last visit? Has dressing in place as prescribed Yes Yes Yes Has compression in place as prescribed Yes Yes Yes Has offloadiing in place as prescribed Yes Yes N/A Experienced any changes in pain level or No No No management Left Footwear Regular Shoe Regular Shoe Right Footwear Regular Shoe Regular Shoe Pain Scale: 0-10 Numeric Is Patient Pain Free? Yes Yes Yes 06/05/24 10:59 - Today's Visit Information Type of service Follow-up Visit (Physician/CATHODE MAKER ) Arrival Mode Wheelchair Transfer Assistance Manual Accompanied by Patient Identification Verified (Name & Yes ) Patient Requires Transmission-Based No Precautions Vital Signs Temperature (97.8 F-99.1 F) 96.6 F L Temperature Source Temporal Pulse Rate (60-100) 58 L Pulse Location Monitor Respiratory Rate (12-18) 14 Respiratory rate source Observation Oxygen Delivery Method Blood Pressure (90/60-120/80) 152/58 H Blood Pressure Mean (mm Hg) 89 Source Monitor Position Sitting Blood Pressure Location Right Arm History Since Last Visit- (Skip if this is Patient's initial visit) Have you changed medications since your No last visit? Any new allergies or adverse reactions No Had a fall/change in ADL's that may No increase risk of falls Signs or symptoms of abuse and/or No neglect since last visit Have you been in the hospital since your No last visit? Has dressing in place as prescribed Yes Has compression in place as prescribed N/A Has offloadiing in place as prescribed N/A Experienced any changes in pain level or No management Left Footwear Right Footwear Pain Scale: 0-10 Numeric Is Patient Pain Free? Yes WC - Nurse 1 - General Ulcer Measurement Start: 05/15/24 11:29 Freq: Status: Active Protocol: Activity Type Activity Date Activity User E-sign Co-sign Detail Recorded Client Recorded Date Recorded By Document 05/15/24 11:29 KW [id number] 05/15/24 11:31 KW Document 05/22/24 11:36 RB [id number] 05/22/24 11:38 RB Document 05/31/24 13:59 KW [id number] 05/31/24 14:10 KW Document 06/05/24 10:59 ML [id number] 06/05/24 11:08 ML 05/15/24 05/22/24 05/31/24 11:29 11:36 13:59 Wound Center Nurse 1 #1 LT HEEL -Combined with other wound No -Current Size (cm) - Length 1.2 0.2 0.3 -Current Size (cm) - Width 1.5 0.5 0.3 -Current Size (cm) - Depth 0 0.2 0.1 -Total Square Cm 1.80 0.10 0.09 -Date of Last Picture (Recall this 05/15/24 05/31/24 field) -Photo Taken Yes -Tunneling No -Undermining/Tunneling No -Circular Undermining No -Exudate Amt Small Medium Small -Exudate Type Serosanguineous Serosanguineous Serosanguineous -Wound Margin Distinct, Distinct, Distinct, Outline Outline Outline Attached Attached Attached -Granulation Amt Small (1-33%) Large (67-100%) Small (1-33%) -Granulation Quality [place] -Slough/Fibrin Yes -Necrosis Amt Large (67-100%) Medium (34-66%) Large (67-100%) -Necrotic Tissue Type Adherent Slough Adherent Slough Adherent Slough -Structure Exposed N/A -Texture (Fauzia-wound Skin Appearance) Assessed Callus Assessed -Moisture (Fauzia-wound Skin Appearance) Assessed,Dry/ Maceration Assessed Scaly -Color (Fauzia-wound Skin Appearance) Assessed Assessed Assessed -Temperature (Fauzia-wound Skin No Abnormality No Abnormality No Abnormality Appearance) (Pt Warm) (Pt Warm) (Pt Warm) -Tenderness on Palpation (Fauzia-wound No No No Skin Appearance) -Ulcer Cleansing Soap and Water Wound Cleanser Soap and Water -Foul Odor after Cleansing No No No -Anesthetic Used 5% Lidocaine 5% Lidocaine 5% Lidocaine Gel Gel Gel Lower Limb Edema Present Yes Right Calf (cm) 30.5 Right Ankle (cm) 18.5 Left Calf (cm) 27.5 Left Ankle (cm) 19.5 06/05/24 10:59 Wound Center Nurse 1 #1 LT HEEL -Combined with other wound -Current Size (cm) - Length 0.5 -Current Size (cm) - Width 0.5 -Current Size (cm) - Depth 0.1 -Total Square Cm 0.25 -Date of Last Picture (Recall this field) -Photo Taken -Tunneling -Undermining/Tunneling -Circular Undermining -Exudate Amt None Present -Exudate Type -Wound Margin -Granulation Amt None Present (0 %) -Granulation Quality -Slough/Fibrin Yes -Necrosis Amt None Present (0 %) -Necrotic Tissue Type Adherent Slough -Structure Exposed -Texture (Fauzia-wound Skin Appearance) Not Assessed -Moisture (Fauzia-wound Skin Appearance) -Color (Fauzia-wound Skin Appearance) Not Assessed -Temperature (Fauzia-wound Skin No Abnormality Appearance) (Pt Warm) -Tenderness on Palpation (Fauzia-wound No Skin Appearance) -Ulcer Cleansing Rinsed/ Irrigated with Saline -Foul Odor after Cleansing No -Anesthetic Used 5% Lidocaine Gel Lower Limb Edema Present Right Calf (cm) Right Ankle (cm) Left Calf (cm) Left Ankle (cm) WC - Nurse 2 - General Ulcer CM Notes Start: 05/15/24 11:29 Freq: Status: Active Protocol: Activity Type Activity Date Activity User E-sign Co-sign Detail Recorded Client Recorded Date Recorded By Document 05/15/24 11:58 DS [id number] 05/15/24 12:01 DS Document 05/22/24 11:50 JF [id number] 05/22/24 11:52 JF Document 05/31/24 14:14 GM [id number] 05/31/24 14:19 05/15/24 05/22/24 05/31/24 11:58 11:50 14:14 Wound Center Nurse 2 #1 LT HEEL -Time 11:55 11:51 14:16 -Correct Patient Yes Yes Yes -Correct Side, Site, Position Yes Yes Yes -Correct Procedure Yes Yes Yes -Procedure Performed Yes Yes Yes -Type of Procedure Debridement Debridement Debridement -Clinical Debridement Subcutaneous Subcutaneous Subcutaneous -Tissue Removed Subcutaneous Subcutaneous Subcutaneous -Post Debridement (cm) - Length 0.4 0.7 0.3 -Post Debridement (cm) - Width 0.5 0.3 0.6 -Post Debridement (cm) - Depth 0.1 0.1 0.1 -Total Square (Post) (cm) 0.20 0.21 0.18 -Area of Debridement (cm) - Length 0.4 0.7 0.1 -Area of Debridement (cm) - Width 0.5 0.3 0.6 -Total Square (Area) (cm) 0.20 0.21 0.06 -Tunneling No No No -Undermining/Tunneling No No No -Circular Undermining No No No -Wound/Ulcer Outcome Not Healed Not Healed Not Healed -Ulcer Cleansing Rinsed/ Rinsed/ Rinsed/ Irrigated with Irrigated with Irrigated with Saline Saline Saline -Foul Odor after Cleansing No No No -Bioengineered Tissue Yes Yes No -Type of Bioengineered Tissue Epifix 18mm Epifix 18mm Disc Disc -Expiration Date 12/12/28 12/12/28 -Product Lot Number [id number] -Percent Used 100 100 -Lot number of Saline Used [id number] -Bleeding Controlled with Pressure Pressure Pressure -Treatment Response Procedure Procedure Procedure Tolerated Well Tolerated Well Tolerated Well -Offloading Yes Yes Yes -Type of Offloading Darco Shoe - Surgical Shoe Darco Shoe - Left Left -Assistive Device(s) Walker -Debridement - Subq, 1st 20sq cm No No Yes -Apply Skin Sub - 1st 25 sq cm - Feet 1 1 -Epifix 18mm Disc 3 3 Pain Scale: 0-10 Numeric Is Patient Pain Free? Yes Yes Yes - Nurse 3 - General Ulcer D/C NN Start: 05/15/24 11:29 Freq: Status: Active Protocol: Activity Type Activity Date Activity User E-sign Co-sign Detail Recorded Client Recorded Date Recorded By Document 05/15/24 12:16 RB [id number] 05/15/24 12:17 RB Document 05/22/24 12:03 RB [id number] 05/22/24 12:04 RB Document 05/31/24 14:36 KW [id number] 05/31/24 14:36 KW 05/15/24 05/22/24 05/31/24 12:16 12:03 14:36 Wound Care Center Nurse 3 #1 LT HEEL -Primary Dressing Applied Silicone Border Silicone Border Promogran Foam 4x4 Foam 6x6 Corina Matter, Silicone Border Foam 4x4 -Promogran Corina Matter 1 -Silicone Border Foam 4x4 1 2 -Silicone Border Foam 6x6 1 LLE -Tubular Bandage Single Layer Single Layer -Size of Tubigrip Used Size D Size E -Size D ($) 1 -Size E ($) 1 -Stockings Yes: pt own tubigrip single layer Treatment Response Procedure Procedure Tolerated Well Tolerated Well Pain Scale: 0-10 Numeric Is Patient Pain Free? 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 Assessment: * Left-sided hemiplegia * Healing left heel ulceration ? No signs of infection, mild maceration. * Onychomycosis with high-risk findings (Q9 qualifying conditions) ? Nail debridement performed. P ? Plan: * Wound Care: Continue offloading with Prevalon heel offloader, apply Betadine a nd DSD to left heel ulceration. * Nail Care: Performed nail debridement of 10 fingernails and 10 toenails due to high-risk Q9 findings. * Follow-up: Return in [timeframe] for reassessment. Billing Justification ([id number] + [id number]) CPT 95177 ? Established Patient E/M Visit * Evaluation of the patient?s left heel ulceration, including assessment of healing progress, wound status, and risk factors. * Discussion of continued offloading and wound management plan. * Medical decision-making related to wound care and ongoing risk of complications. CPT 97273 ? Debridement of Nails (6 or More) with Q9 Findings * Patient has documented Q9-qualifying risk factors, including left-sided hemiplegia and diabetes, which increase risk for foot complications. * Presence of thickened, dystrophic nails requiring debridement to prevent further complications. * Debridement performed on all 10 toenails and all 10 fingernails for proper hygiene and prevention of secondary infections. Medical Necessity: The combination of 75589 and 21091 is justified as separate and necessary services. The E/M visit was required for wound evaluation and ongoing risk assessment, while nail debridement was performed as a distinct service due to qualifying high-risk conditions.
--- NOTE | 2024-06-06 12:17 | WC ---
PHOTO 06/05/24 LEFT HEEL ULCER
== END 2024-06-11 23:59 | disposition home or self-care (01) ==
LOC: WC 11:00
PROVIDERS: PCP Internal Medicine; Referring Provider Podiatrist; Visit Provider Podiatrist
DX: E11.621 Type 2 diabetes mellitus with foot ulcer (principal); L97.422 Non-pressure chronic ulcer of left heel and midfoot with fat layer exposed; L97.522 Non-pressure chronic ulcer of other part of left foot with fat layer exposed; I69.354 Hemiplegia and hemiparesis following cerebral infarction affecting left non-dominant side; E11.42 Type 2 diabetes mellitus with diabetic polyneuropathy; Z79.4 Long term (current) use of insulin; B35.1 Tinea unguium; Z66 Do not resuscitate
CPT/HCPCS: 11042; 15275; 82962; Q4186

== ENCOUNTER 2024-06-12 11:35 | Outpatient (RCR) | payer MEDICARE, SELFPAY ==
[2024-06-12 00:48] VITALS: BP 152/58; PULSE 58; RESP 14; TEMP 35.9
[2024-06-12 11:46] VITALS: BP 135/60; PULSE 55; RESP 18; TEMP 36.1
--- NOTE | 2024-06-12 11:52 | PN.PCM_ITS ---
History of Present Illness Date of Service: 06/12/24 Chief Complaint: Left posterior heel ulceration History of Wound: This is an 83-year-old male with a pressure ulceration of the left posterior heel. The patient has multiple pre-existing medical problems which are listed herein. The patient has been recently treated by means of a cellular tissue product, EpiFix. Offloading has been by means of a Prevalon boot. The patient is known to be diabetic, and his last hemoglobin A1c was 8.8 on March 29, 2024. The patient is also known to be anemic. Objective Data Objective Data Vital Signs: Vital Signs Temp Pulse Resp BP 97 F L 55 L 18 135/60 H 06/12/24 11:46 06/12/24 11:46 06/12/24 11:46 06/12/24 11:46 Physical Exam Narrative Neurovascular status unchanged. healed left heel wound. Debridement Note Debridement Note Post-Debridement Measurements and Additional Note: Post-Debridement Measurements/Treatment WC - Nurse 1 - General Ulcer Assessment Start: 06/12/24 11:46 Freq: Status: Active Protocol: CARYN Activity Type Activity Date Activity User E-sign Co-sign Detail Recorded Client Recorded Date Recorded By Document 06/12/24 11:46 ML [id number] 06/12/24 11:48 ML 06/12/24 11:46 - Today's Visit Information Type of service Follow-up Visit (Physician/[employer] ) Arrival Mode Wheelchair Transfer Assistance Manual Patient Identification Verified (Name & Yes ) Patient Requires Transmission-Based No Precautions Vital Signs Temperature (97.8 F-99.1 F) 97 F L Temperature Source Temporal Pulse Rate (60-100) 55 L Pulse Location Monitor Respiratory Rate (12-18) 18 Respiratory rate source Observation Blood Pressure (90/60-120/80) 135/60 H Blood Pressure Mean (mm Hg) 85 Source Monitor Position Semi-Fowlers Blood Pressure Location Left Arm History Since Last Visit- (Skip if this is Patient's initial visit) Have you changed medications since your No last visit? Any new allergies or adverse reactions No Had a fall/change in ADL's that may No increase risk of falls Signs or symptoms of abuse and/or No neglect since last visit Have you been in the hospital since your No last visit? Has dressing in place as prescribed Yes Has compression in place as prescribed N/A Has offloadiing in place as prescribed Yes Experienced any changes in pain level or No management Pain Scale: 0-10 Numeric Is Patient Pain Free? Yes WC - Nurse 1 - General Ulcer Measurement Start: 06/12/24 11:46 Freq: Status: Active Protocol: Activity Type Activity Date Activity User E-sign Co-sign Detail Recorded Client Recorded Date Recorded By Document 06/12/24 11:46 ML [id number] 06/12/24 11:48 ML 06/12/24 11:46 Wound Center Nurse 1 #1 LT HEEL -Combined with other wound No -Current Size (cm) - Length 0.5 -Current Size (cm) - Width 0.5 -Current Size (cm) - Depth 0.1 -Total Square Cm 0.25 -Photo Taken Yes -Tunneling No -Undermining/Tunneling No -Circular Undermining No -Exudate Amt Medium -Exudate Type Serosanguineous -Wound Margin Thickened -Granulation Amt Medium (34-66%) -Granulation Quality Drew -Slough/Fibrin Yes -Necrosis Amt Small (1-33%) -Necrotic Tissue Type Adherent Slough -Structure Exposed N/A -Texture (Fauzia-wound Skin Appearance) Callus -Moisture (Fauzia-wound Skin Appearance) Assessed -Color (Fauzia-wound Skin Appearance) Assessed -Temperature (Fauzia-wound Skin No Abnormality Appearance) (Pt Warm) -Tenderness on Palpation (Fauzia-wound No Skin Appearance) -Ulcer Cleansing Wound Cleanser -Foul Odor after Cleansing No -Anesthetic Used 5% Lidocaine Gel NADJA - Nurse 2 - General Ulcer CM Notes Start: 06/12/24 11:46 Freq: Status: Active Protocol: Activity Type Activity Date Activity User E-sign Co-sign Detail Recorded Client Recorded Date Recorded By Document 06/12/24 11:51 DS [id number] 06/12/24 11:51 DS 06/12/24 11:51 Wound Center Nurse 2 -Time 11:51 -Correct Patient Yes -Procedure Performed No -Wound/Ulcer Outcome Healed- Epithelialized Pain Scale: 0-10 Numeric Is Patient Pain Free? Yes Assessment/Plan Assessment/Plan (1) Non-pressure chronic ulcer of left heel and midfoot with fat layer exposed: CODE(S): L97.422 - Non-pressure chronic ulcer of left heel and midfoot with fat layer exposed PLAN: Plan Exam performed left heel wound healed continue offload with prevalon boot in supine position return to ambulating in DM shoes with AFO follow up in office for nail care
== END 2024-07-11 23:59 | disposition home or self-care (01) ==
LOC: WC 11:35
PROVIDERS: PCP Internal Medicine; Referring Provider Podiatrist; Visit Provider Podiatrist
DX: Z09 Encounter for follow-up examination after completed treatment for conditions other than malignant neoplasm (principal)
CPT/HCPCS: 99213; G0463

== ENCOUNTER 2024-07-03 15:28 | Outpatient (CLI) | payer MEDICARE, SELFPAY ==
[2024-07-03 18:22] LABS: Hematocrit 38.2 % (40-54); Hemoglobin 12.9 g/dL (13.0-16.5); Mean Corp Hgb Conc 33.8 g/dL (32-36); Mean Corpuscular Hgb 30.4 pg (27.0-32.0); Mean Corpuscular Volume 89.9 fL (80-94); Mean Platelet Vol. 10.9 fl (6.2-12.0); Platelet Count 286 K/mm3 (150-450); RBC Distribution Width CV 15.6 % (11.6-14.6); Red Blood Count 4.25 M/mm3 (4.6-6.2)
[2024-07-03 18:39] LABS: ALB/GLOB Ratio 1.2 RATIO (0.9-2.4); AST(SGOT) 15 U/L (<=37); Alanine Aminotransfer ALT/SGPT 9 U/L (<=46); Albumin, Serum 3.9 g/dL (3.4-4.8); Alkaline Phosphatase 72 U/L (40-129); Anion Gap 14 (5-15); BUN 24 mg/dL (4-19); BUN/Creat Ratio 15.3 RATIO (10-20); Calcium,Total 9.1 mg/dL (7.6-11.0); Carbon Dioxide 30.7 mmol/L (21.0-32.0); Chloride 98 mmol/L (98-108); Creatinine, Serum 1.56 mg/dL (0.70-1.20); EST Glomerular Filtration Rate 44 (>60); Ferritin 448 ng/mL (37-417); Globulin 3.2 g/dL (2.2-4.2); Glucose 169 mg/dL (70-99); Iron 40 ug/dL (65-175); Magnesium 1.9 mg/dL (1.5-2.2); PSA,Total - Annual Screen 1.57 ng/mL (0.02-4.00); Potassium 3.1 mmol/L (3.3-5.1); Protein, Total 7.1 g/dL (5.9-8.4); Sodium Level 143 mmol/L (133-145); Total Bilirubin 0.19 mg/dL (0.00-1.30)
[2024-07-03 19:08] LABS: Hemoglobin A1c 6.7 % (<=5.6)
[2024-07-03 19:32] LABS: Cholesterol 164 mg/dL (<=200); High Density Lipoprotein 34 mg/dL; Low Density Lipoprotein Calc. 93 mg/dL; Triglycerides 184 mg/dL; Very Low Density Lipoprotein 37 mg/dL (5-40)
== END 2024-07-03 23:59 | disposition home or self-care (01) ==
LOC: MTLAB 15:30
PROVIDERS: Psychiatry & Neurology Neurology; PCP Internal Medicine; Referring Provider Internal Medicine; Visit Provider Internal Medicine
DX: I13.0 Hypertensive heart and chronic kidney disease with heart failure and stage 1 through stage 4 chronic kidney disease, or unspecified chronic kidney disease (principal); I50.9 Heart failure, unspecified; E11.65 Type 2 diabetes mellitus with hyperglycemia; E11.22 Type 2 diabetes mellitus with diabetic chronic kidney disease; N18.32 Chronic kidney disease, stage 3b; R73.9 Hyperglycemia, unspecified; Z12.5 Encounter for screening for malignant neoplasm of prostate; Z86.2 Personal history of diseases of the blood and blood-forming organs and certain disorders involving the immune mechanism; D50.9 Iron deficiency anemia, unspecified
CPT/HCPCS: 36415; 80053; 80061; 82728; 83036; 83540; 83735; 84153; 85027; G0103

== ENCOUNTER → 2024-07-30 | Outpatient (CLI) | payer MEDICARE, SELFPAY ==
[2024-07-30 18:03] LABS: Potassium 3.4 mmol/L (3.3-5.1)
== END | disposition home or self-care (01) ==
LOC: MTLAB 14:13
PROVIDERS: PCP Internal Medicine; Referring Provider Psychiatry & Neurology Neurology; Visit Provider Psychiatry & Neurology Neurology
DX: E87.6 Hypokalemia (principal)
CPT/HCPCS: 36415; 84132

== ENCOUNTER 2024-08-23 13:14 | Emergency (ER) | payer MEDICARE, SELFPAY ==
[2024-08-23 13:14] VITALS: BP 132/57; PULSE 66; RESP 16; TEMP 37; O2SAT 98
--- NOTE | 2024-08-23 13:37 | CT_ITS ---
PROCEDURE: BRAIN/HEAD WITHOUT CONTRAST 08/23/2024 REASON FOR EXAM: FALL TECHNIQUE: Head CT without intravenous contrast. Coronal and Sagittal reconstruction series were provided. One or more dose reduction techniques were used (e.g., Automated exposure control, adjustment of the mA and/or kV according to patient size, use of iterative reconstruction technique. RADIATION DOSE SUMMARY: CTDlvol: 44.99 mGy DLP: 846.73 mGycm COMPARISON: Prior study dated December 10, 2023. FINDINGS: Brain: Low density in the periventricular white matter suggests mild chronic small vessel ischemic changes. CSF Spaces: Moderate generalized cerebral atrophy. Atherosclerotic calcification of the vertebral arteries and cavernous portions of the internal carotid arteries bilaterally. Sinuses/Mastoids: Clear at visualized levels Bones: Unremarkable CT/Brain/Head without Contrast IMPRESSION: CHRONIC CHANGES. NO ACUTE FINDINGS. Reading Location: [place] [address]
--- NOTE | 2024-08-23 13:38 | ED.VIS.FALL ---
HPI HPI - Fall History of Present Illness Chief Complaint: Fall Detail of Chief Complaint: Fall with left hip injury Informant: patient Narrative Narrative: Patient presents to the emergency department after sustaining a fall and injuring his left hip. Patient states that he was walking to his bed with his walker when he lost his balance and fell onto his left hip. He had the left hip replaced last January after a fall with fracture. Patient also hit his head but no loss of consciousness. He is on Plavix. Denies neck pain. Denies chest pain or abdomen pain. Patient states he is having pain when attempting to bear weight and is unable to. [facility] Medical History Non-pressure chronic ulcer of left heel and midfoot with fat layer exposed CHF (congestive heart failure) COVID-19 virus infection Diabetes mellitus, type 2 Osteoarthritis Uncontrolled hypertension Closed displaced fracture of left femoral neck History of CHF (congestive heart failure) Obstructive sleep apnea Neuropathic pain Physical debility Fall Current use of insulin Back pain due to injury Restless legs Syncope Kidney stones PAF (paroxysmal atrial fibrillation) Anemia Weakness Wears glasses Depression Rash Insulin dependent diabetes mellitus Walker as ambulation aid Prostate disease Low iron Restless legs Stroke/cerebrovascular accident Dietary restriction Non-smoker BiPAP (biphasic positive airway pressure) dependence History of edema History of echocardiogram Cardiology follow-up encounter BPH (benign prostatic hyperplasia) Congestive heart failure Pneumonia Incontinence Limb weakness Unsteadiness Chronic anemia Hypertension Coronary artery disease Right renal artery stenosis Fatigue Ventricular tachycardia 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 (02/20/21) Peripheral vascular occlusive disease Type 2 diabetes mellitus Hyperlipidemia Essential hypertension History of CVA (cerebrovascular accident) (12/2020) Obstructive Sleep Apnea-Hypopnea Syndrome Absent pedal pulses Skin lesion of face Normocytic normochromic anemia Depression Dysphagia Proteinuria due to type 2 diabetes mellitus Facial droop due to acute stroke Acute left-sided muscle weakness Osteoarthritis Right pontine CVA Recurrent inguinal hernia of right side without obstruction or gangrene Home Medications ?Medication ?Instructions ?Recorded ?Last Taken ?Type Handicap Fitoard #1 ea 02/12/21 Unknown Rx hydralazine 100 mg tablet 100 mg PO TID BP #270 tabs 09/22/23 12/15/23 Rx oxybutynin chloride 15 mg 15 mg PO DAILY bladder 10/28/23 12/15/23 History tablet,extended release 24 hr pramipexole 0.125 mg tablet 0.125 mg PO QHS parkinsons #90 tabs 11/08/23 12/14/23 Rx cyanocobalamin (vitamin B-12) 1,000 mcg IM QMONTH #0 mL 01/09/24 02/20/24 Rx 1,000 mcg/mL injection solution bisacodyl 10 mg rectal suppository 10 mg MA QDAY PRN constipation 01/26/24 02/29/24 History nutritional supplements 1 ea PO BID wound healing 01/26/24 03/04/24 History sennosides 8.6 mg-docusate sodium 1 tab-cap PO DAILY constipation 01/26/24 Unknown History 50 mg capsule (Senna Plus) amlodipine 10 mg tablet 10 mg PO DAILY #90 tabs 02/14/24 Unknown Rx doxazosin 4 mg tablet 4 mg PO QHS Urinary Retention #90 02/27/24 Unknown Rx tabs acetaminophen 500 mg tablet 1,000 mg PO Q8 PRN fever or pain 03/09/24 Unknown History latanoprost 0.005 % eye drops 1 drp EACH EYE QHS eyes 03/29/24 Unknown History losartan 25 mg tablet 25 mg PO QDAY 03/29/24 Unknown History multivitamin 1 tab PO QAM 03/29/24 Unknown History polyethylene glycol 3350 17 17 g PO QDAY 03/29/24 Unknown History gram/dose oral powder blood sugar diagnostic (Blood #300 ea 04/10/24 Unknown Rx Glucose Test strips) blood-glucose meter #1 ea 04/10/24 Unknown Rx lancets #300 ea 04/10/24 Unknown Rx pen needle, diabetic 32 gauge x #400 ea 04/10/24 Unknown Rx (BD Sanaz 2nd Gen Pen Needle) potassium chloride 20 mEq 20 meq PO DAILYCM supplement 30 05/05/24 Unknown Rx tablet,extended release(part/cryst) days #90 tabs sertraline 50 mg tablet 50 mg PO QHS mood #90 tabs 05/05/24 Unknown Rx gabapentin 100 mg capsule 100 mg PO BID pain #180 caps 06/12/24 Unknown Rx insulin glargine 100 unit/mL (3 25 unit (0.25 mL) subcut QPM #15 mL 06/21/24 Unknown Rx mL) subcutaneous pen (Gabriela Ortega U-100 Insulin) insulin lispro 100 unit/mL 1 sliding scale dose subcut 04/17/25 Unknown Rx subcutaneous pen (Admelog SoloStar USEASDIRECTD #15 mL U-100 Insulin lispro) clopidogrel 75 mg tablet (Plavix) 75 mg PO DAILY blood thinner #90 07/18/24 Unknown Rx tabs ezetimibe 10 mg tablet 10 mg PO QDAY #90 tabs 07/18/24 Unknown Rx gabapentin 300 mg capsule 300 mg PO 2100 pain #90 caps 07/18/24 Unknown Rx furosemide 40 mg tablet 40 mg PO DAILY Fluid retention #90 07/19/24 Unknown Rx TABLETS amiodarone 200 mg tablet 100 mg (1/2 x 200 mg) PO DAILY BP 08/14/24 Unknown Rx #45 tabs Allergy/AdvReac Type Severity Reaction Status Date / Time meloxicam (From Mobic) Allergy Intermediate itching Verified 08/23/24 13:17 pravastatin (From Pravachol) AdvReac Mild myalgia Verified 08/23/24 13:17 cholestyramine AdvReac hypoglycemi Verified 08/23/24 13:17 a Family History Mother Hypertension Cancer Father Heart disease Diabetes Surgical History History of hip replacement (~01/13/24) Status post hip hemiarthroplasty History of prostate surgery H/O transurethral resection of prostate (01/12/23) Hx of cystoscopy Hx of total knee arthroplasty History of hydrocelectomy History of cataract surgery History of lumbar laminectomy History of herniorrhaphy History of stent insertion of renal artery (08/05/21) Social History household members: spouse and other details: Abigail is his 's name housing: house number of children: 2 current occupational status: retired and other details: worked for [employer] prior to retiring leisure activities: other Smoking Status: Never smoker Electronic Cigarette Use: not used second hand exposure: No alcohol intake: former substance use type: does not use what type of physical activity do you participate in: walking frequency: 1-2 times per week inés/yazidism: None seatbelt use: always ROS ROS ED Review of Systems ROS Unobtainable: other Constitutional Constitutional ED: Reports lethargy; Denies chills, fever(s), sweats or weight loss Eyes Eyes: Denies blurry vision, change in vision or diplopia ENT ENT ED: Denies rhinorrhea or sore throat Cardiovascular Cardiovascular: Denies chest pain, orthopnea or racing heartbeat Respiratory/Chest Respiratory/Chest: Denies cough, dyspnea, dyspnea on exertion, orthopnea or sputum Gastrointestinal Gastrointestinal: Denies abdominal pain, diarrhea, nausea or vomiting Genitourinary Genitourinary ED: Denies dysuria, hematuria or urinary frequency Musculoskeletal Musculoskeletal: Reports other Details: Left hip pain ; Denies arthralgias, back pain, myalgias or neck pain Integumentary Denies abscess, Abrasions or rash Neurologic Neurologic: Denies headache(s) or weakness Psychiatric Psychiatric: Denies anxiety, depression or suicidal thoughts Endocrine Endocrinology: Denies polydipsia, polyphagia or polyuria Hematologic/Lymphatic Hematologic/Lymphatic: Denies easy bleeding, easy bruising or lymphadenopathy Allergic/Immunologic Allergic/Immunologic ED: Denies mouth swelling, tongue swelling or urticaria EXAM Physical Exam Const Vital Signs: 08/23/24 13:14 08/23/24 13:48 Temperature 98.6 F Temperature Source Oral Pulse Rate 66 Respiratory Rate 16 Respiratory Effort Normal Non-Labored Respiratory Depth Normal Respiratory Pattern Normal Blood Pressure 132/57 H Blood Pressure Mean 82 Pulse Ox 98 Oxygen Delivery Method Room Air Room Air Positive well nourished and well developed General Appearance ED: well developed and NAD HEENT Reports TM's clear and moist mucous membranes HEENT Narrative: Small superficial abrasion left temporal scalp. No bony tenderness. No lacerations. No bony step-offs Left facial droop from prior stroke. normocephalic and atraumatic; Negative for trauma or tenderness Tympanic Membrane ED: Yes TM's clear Eyes PERRL and EOMs intact bilaterally General Eye ED: Negative for pale conjunctiva or scleral icterus Neck no lymphadenopathy, supple and no JVD General: Negative for tenderness Chest Wall inspection of chest normal and palpation of chest normal Chest: Negative for tenderness Resp normal respiratory effort and clear to auscultation bilaterally Effort and Inspection: Negative for respiratory distress or pain with movement Auscultation: Negative for rhonchi, wheezes or diminished lung sounds Cardio regular rate, regular rhythm, S1 normal heart sound, S2 normal heart sound and no murmurs Peripheral Pulses: pulses 2+ throughout GI normal to inspection, nondistended, normoactive bowel sounds, soft to palpation, non-tender, non-distended and no masses Back/Spine no CVA tenderness and no thoracic nor lumbar tenderness Extremity normal to inspection Extremity Narrative: Tenderness palpation over left hip. No obvious deformity. Neurovascular intact distally. No significant tenderness with logrolling or straight leg raising. Patient has contracture of left upper arm secondary to prior stroke. General Extremety ED: Negative for edema General Extremity: Negative for edema Neuro oriented x3, CN's II-XII intact bilaterally, no sensory deficits noted and gait normal Sensorium / Orientation: awake, alert, oriented to person, oriented to place and oriented to time Motor Exam: strength 5/5 throughout and strength abnormal Psych mental status grossly normal Skin no rashes or lesions noted and no wounds MDM MDM MDM Narrative Medical decision making narrative: Patient presents after a fall that occurred yesterday same level fall. Complains of injury to his left hip. He did strike his head but no loss of consciousness. CT scan of the brain without contrast was obtained and was negative for intracranial hemorrhage or skull fracture. Patient had x-rays of the left hip and pelvis that showed no fractures or dislocation. At this point suspect likely contusion to the left hip. Patient is comfortable going back to the assisted living facility and states he has help there as he needs it. Advised to follow-up with his primary care physician and orthopedic surgeon within next 7 days. Advised use Tylenol for discomfort Radiography Diagnostic Testing: Clinical Impression(s) from Imaging Studies Brain CT 08/23/24 13:37 IMPRESSION: CHRONIC CHANGES. NO ACUTE FINDINGS. Reading Location: [facility] Hip/Pelvis X-Ray 08/23/24 14:15 IMPRESSION: Postoperative changes as above. [facility] x-rays of the left hip and pelvis obtained interpreted by myself as no evidence of fracture or dislocation. Radiology in agreement. Discharge Plan Triage Chief Complaint: Fall ED Provider: Shelia Davenport Dx/Rx/DC Orders Clinical Impression: Fall, Contusion of hip, left Instructions: ED Hip Contusion Prescriptions: No Action bisacodyl 10 mg suppository 10 mg MA QDAY PRN (Reason: constipation) nutritional supplements Powder 1 ea PO BID Rx Instructions: Sanjeev Senna Plus 8.6-50 mg capsule 1 tab-cap PO DAILY multivitamin Tablet 1 tab PO QAM polyethylene glycol 3350 17 gram/dose powder 17 g PO QDAY losartan 25 mg tablet 25 mg PO QDAY insulin glargine [Basaglar KwikPen U-100 Insulin] 100 unit/mL (3 mL) insulin pen 25 unit subcut QPM Qty: 15 3RF amiodarone 200 mg tablet 100 mg PO DAILY Qty: 45 3RF latanoprost 0.005 % drops 1 drp EACH EYE QHS Patient Comments: M-W- oxybutynin chloride 15 mg tablet extended release 24hr 15 mg PO DAILY cyanocobalamin (vitamin B-12) 1,000 mcg/mL Solution 1,000 mcg IM QMONTH Qty: 0 0RF acetaminophen 500 mg Tablet 1,000 mg PO Q8 PRN (Reason: fever or pain) (DME) Handicap Placard See Rx Instructions .Route .MEDSUPPLY Qty: 1 0RF Rx Instructions: Length of time: 5 years hydralazine 100 mg tablet 100 mg PO TID Qty: 270 3RF pramipexole 0.125 mg tablet 0.125 mg PO QHS Qty: 90 3RF amlodipine 10 mg tablet 10 mg PO DAILY Qty: 90 3RF doxazosin 4 mg tablet 4 mg PO QHS Qty: 90 3RF (DME) blood-glucose meter Misc See Rx Instructions .Route Qty: 1 0RF Rx Instructions: As directed May substitute for covered alternative (DME) Blood Glucose Test Strip See Rx Instructions .Route Qty: 300 3RF Rx Instructions: As directed May substitute for covered alternative; test 3 times daily and PRN (DME) lancets Misc See Rx Instructions .Route Qty: 300 3RF Rx Instructions: As directed May substitute for covered alternative; test 3 times daily and PRN (DME) pen needle, diabetic [BD Sanaz 2nd Gen Pen Needle] 32 gauge x 5/32 needle See Rx Instructions .ROUTE .MEDSUPPLY Qty: 400 3RF Rx Instructions: use once daily to adminster insulin as directed. For insulin administration 4 times daily and PRN potassium chloride 20 mEq tablet,ER particles/crystals 20 meq PO DAILYCM 30 Days Qty: 90 1RF sertraline 50 mg tablet 50 mg PO QHS Qty: 90 3RF gabapentin 100 mg capsule 100 mg PO BID Qty: 180 3RF insulin lispro [Admelog SoloStar U-100 Insulin] 100 unit/mL insulin pen 1 sliding scale dose subcut USEASDIRECTD Qty: 15 3RF Rx Instructions: Give 3 units with each meal breakfast, lunch, dinner. Additional sliding scale for blood sugar 150-199 give 1 unit; for blood sugar 200-249 give 2 units; for blood sugar 250-299 give 3 units; for blood sugar 300-349 give 4 units; for blood sugar 350 or greater give 5 units and notify physician. Administer at start of meal. clopidogrel [Plavix] 75 mg tablet 75 mg PO DAILY Qty: 90 3RF ezetimibe 10 mg tablet 10 mg PO QDAY Qty: 90 3RF gabapentin 300 mg capsule 300 mg PO 2100 Qty: 90 3RF furosemide 40 mg tablet 40 mg PO DAILY Qty: 90 3RF Primary Care Provider: Jennifer Watt Referrals: Jennifer Watt MD [Primary Care Provider] - 5-7 Days Print Language: Greenlandic Disposition Disposition: Home, Self Care
[2024-08-23 13:47] VITALS: BMI 24.3
--- NOTE | 2024-08-23 14:15 | RAD_ITS ---
EXAM: XR Left Hip With Pelvis When Performed, 2 or 3 Views CLINICAL INDICATION: FALL TECHNIQUE: Two or three views of the left hip with pelvis when performed. COMPARISON: No relevant prior studies available. FINDINGS: BONES/JOINTS: Total left hip replacement. Intact hardware. Anatomic position. No acute fracture. No dislocation. SOFT TISSUES: Unremarkable. RAD/HIP, UNI W/ Pelvis 2-3 Views IMPRESSION: Postoperative changes as above. Reading Location: [facility]
[2024-08-23 16:02] VITALS: BP 161/69; PULSE 65; RESP 14; TEMP 36.2; O2SAT 97
== END 2024-08-23 16:03 | disposition home or self-care (01) ==
PROVIDERS: Emergency Provider Emergency Medicine; PCP Internal Medicine; Referring Provider Emergency Medicine; Visit Provider Emergency Medicine
DX: S70.02XA Contusion of left hip, initial encounter (principal); I11.0 Hypertensive heart disease with heart failure; I50.9 Heart failure, unspecified; I48.0 Paroxysmal atrial fibrillation; E11.40 Type 2 diabetes mellitus with diabetic neuropathy, unspecified; Z79.4 Long term (current) use of insulin; E11.51 Type 2 diabetes mellitus with diabetic peripheral angiopathy without gangrene; S00.01XA Abrasion of scalp, initial encounter; W18.30XA Fall on same level, unspecified, initial encounter; I25.10 Atherosclerotic heart disease of native coronary artery without angina pectoris; E78.5 Hyperlipidemia, unspecified; N40.0 Benign prostatic hyperplasia without lower urinary tract symptoms; Z79.02 Long term (current) use of antithrombotics/antiplatelets; Z79.899 Other long term (current) drug therapy
CPT/HCPCS: 70450; 73502; 99282

== ENCOUNTER → 2024-09-05 | Outpatient (CLI) | payer MEDICARE, SELFPAY ==
--- OUTSIDE RECORDS SUMMARY | 2024-09-05 21:52 | XMS RPT_ITS | CCD ---
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 Butch Giraldo Referring Provider Dr. Costa Figueroa Attending Provider Dr. Jennifer Watt Primary Care Provider Blanche Ahmadi Attending Provider Unavailable Ivett Gorman Attending Provider Unavailable Dr. Jennifer Watt Referring Provider [phone] Jane PADDER CUSHION, PADDER CUSHION-C Ny Attending Provider Dr. Jonathan Davis Attending Provider Dr. Costa Figueroa Referring Provider Dr. Jennifer Watt Attending Provider [phone] CRISTHIAN Morelos Attending Provider Unavailab Tia Alaniz Attending Provider Unavailable Dr. [place] Attending Provider Jane PADDER CUSHION, PADDER CUSHION-C Ny Referring Provider [phone] Jane PADDER CUSHION, PADDER CUSHION-C Ny Other Provider Dr. Luciano Santoro Attending Provider Dr. Jennifer Watt Primary Care Provider Dr. Buthc Giraldo Referring Provider [phone] Dr. Costa Figueroa Attending Provider Dr. Jennifer Watt Primary Care Provider Dr. Jennifer Watt Referring Provider [phone] Jane PADDER CUSHION, PADDER CUSHION-C Ny Attending Provider Dr. Costa Figueroa Referring Provider [phone] Jonathan Davis Attending Provider [phone] Jennifer Watt Attending Provider [phone] Juan PADDER CUSHION, PADDER CUSHION-C [place] Attending Provider Dr. Jennifer Watt Primary Care Provider Dr. Costa Figueroa Attending Provider [phone] Dr. Costa Figueroa Referring Provider [phone] Dr. Jennifer Watt Referring Provider [phone] Dr. Jennifer Watt Primary Care Provider Dr. Jennifer Watt Attending Provider [phone] Dr. Jennifer Watt Referring Provider [phone] Dr. Costa Figueroa Attending Provider [phone] Dr. Jennifer Watt Primary Care Provider Dr. Luciano Snatoro Attending Provider Dr. Jennifer Watt Primary Care Provider Dr. Jennifer Watt Referring Provider [phone] Juan PADDER CUSHION, PADDER CUSHION-C [place] Attending Provider Dr. [place] Attending Provider [phone] Jennifer Watt Primary Care Provider Dr. [place] Attending Provider [phone] Jennifer Watt Referring Provider [phone] Juan PADDER CUSHION, PADDER CUSHION-C [place] Attending Provider Dr. Jennifer Watt Attending Provider [phone] Dr. Costa Figueroa Attending Provider [phone] Dr. Costa Figueroa Referring Provider [phone] Dr. Jennifer Watt Primary Care Provider Dr. Antonette Alonzo Emergency Provider Dr. Karrie Montgomery Admit Provider Dr. Karrie Montgomery Attending Provider Valentina, Dr. Yoon Other Provider Dr. Angel Adamson Other Provider Dr. Angel Adamson Attending Provider Dr. Amalia Aguila Other Provider Dr. [place] Attending Provider 1([facility])[phone] Amalia Aguila Attending Provider Dr. Anai Sanchez Other Provider Dr. Anai Sanchez Attending Provider 1([facility])[phone] Jennifer Watt Primary Care Provider Dr. Jennifer Watt Referring Provider 1([facility])[phone] Dr. Miguel Sui Emergency Provider 1([facility])[phone] Adiel Umanzor Admit Provider 1([facility])[phone]. Adiel Umanzor Attending Provider Noé, Dr. Chun Other Provider 1([facility])[phone] Tanphaichitr, Dr. Casey Other Provider Dr. Jonathan Davis Attending Provider Dr. Jennifer Watt Primary Care Provider Dr. Jennifer Watt Attending Provider [phone] Jennifer Watt Referring Provider Dr. Costa Figueroa Attending Provider Dr. Costa Figueroa Referring Provider Dr. Antonette Alonzo Emergency Provider Valentina, Dr. Karrie Minayait Provider Valentina, Dr. Yoon Attending Provider Valentina, Dr. Yoon Other Provider Dr. Angel Adamson Other Provider 1([facility])[phone] Angel Adamson Attending Provider Dr. Amalia Aguila Other Provider Dr. [place] Attending Provider Dr. Amalia Aguila Attending Provider Daniel, Dr. Ospina Other Provider Dr. Anai Sanchez Attending Provider Dr. Miguel Siu Emergency Provider Noé, Dr. Chun Admit Provider Dr. Adiel Umanzor Attending Provider Noé, Dr. Chun Other Provider Dr. Carmela Ruffin Other Provider Dr. Jonathan Davis Attending Provider Dr. Adiel Umanzor Referring Provider Eda MORROW, CRISTHIAN Pierson Attending Provider Dr. Paddy Milner Emergency Provider [phone] Mitch, Dr. Jessica Peck Admit Provider Dr. Jessica Meyer Attending Provider Mitch, Dr. Jessica Peck Other Provider Dr. [place] Other Provider Dr. Jonathan Bowling Other Provider [phone] Dr. Elham Olivia Other Provider Dr. Jennifer Watt Primary Care Provider Dr. Jennifer Watt Attending Provider Dr. Antonette Alonzo Emergency Provider Dr. Karrie Montgomery Admit Provider Dr. Karrie Montgomery Attending Provider Dr. Karrie Montgomery Other Provider Dr. Angel Adamson Other Provider Dr. Angel Adamson Attending Provider Dr. Amalia Aguila Other Provider Dr. [place] Attending Provider Dr. Amalia Aguila Attending Provider Daniel, Dr. Ospina Other Provider Dr. Anai Sanchez Attending Provider Dr. Miguel Siu Emergency Provider Dr. Adiel Umanzor Admit Provider Dr. Adiel Umanzor Attending Provider Noé, Dr. Chun Other Provider Dr. Carmela Ruffin Other Provider Dr. Jonathan Davis Attending Provider Dr. Adiel Umanzor Referring Provider Dr. Jennifer Watt Referring Provider Eda MORROW, CRISTHIAN Pierson Attending Provider Dr. Paddy Milner Emergency Provider [phone] Mitch, Dr. Jessica Peck Admit Provider Dr. Jessica Meyer Attending Provider Mitch, Dr. Jessica Peck Other Provider Dr. [place] Other Provider Dr. Jonathan Bowling Other Provider Dr. Elham Olivia Other Provider Dr. Jennifer Watt Primary Care Provider Dr. Antonette Alonzo Emergency Provider Dr. Karrie Montgomery Admit Provider Dr. Karrie Montgomery Other Provider Dr. Angel Adamson Other Provider Dr. Angel Adamson Attending Provider [phone] Dr. Jennifer Watt Attending Provider [phone] Dr. Jennifer Watt Primary Care Provider Dr. [place] Attending Provider Dr. Adiel Umanzor Other Provider Noé, Dr. Chun Attending Provider Dr. Jennifer Watt Attending Provider [phone] Dr. Costa Figueroa Attending Provider Dr. Costa Figueroa Referring Provider Dr. Jennifer Watt Primary Care Provider Holly, Dr. Skelton Attending Provider Holly, Dr. Skelton Referring Provider Dr. Jennifer Watt Referring Provider Dr. [place] Attending Provider Dr. Luciano Santoro Attending Provider Dr. Jennifer Watt Attending Provider Dr. Jennifer Watt Primary Care Provider Dr. Jennifer Watt Referring Provider Dr. [place] Attending Provider Dr. Luciano Santoro Attending Provider Dr. Jennifer Watt Attending Provider Dr. Elba Ontiveros Emergency Provider Dr. Tato Avendaño Admit Provider Dr. Tato Avendaño Attending Provider Dr. Tato Avendaño Other Provider Noé, Dr. Chun Attending Provider Noé, Dr. Chun Other Provider Dr. Elba Ontiveros Emergency Provider Kateryna Dr. Godwin Admit Provider Kateryna, Dr. Godwin Attending Provider Kateryna, Dr. Godwin Other Provider Noé, Dr. Chun Attending Provider Noé, Dr. Chun Other Provider Geremias, Dr. Johana Person Attending Provider Geremias, Dr. Johana Person Other Provider Dr. Jonathan Bowling Other Provider Geremias, Dr. Johana Person Attending Provider Geremias, Dr. Johana Person Other Provider Dr. Jonathan Bowling Other Provider Dr. Jennifer Watt Primary Care Provider Dr. Costa Figueroa Attending Provider Dr. Costa Figueroa Referring Provider Dr. Jennifer Watt Primary Care Provider Dr. Jennifer Watt Attending Provider Dr. Jennifer Watt Referring Provider Dr. Jonathan Davis Attending Provider Dr. Jennifer Watt Primary Care Provider Dr. Jennifer Watt Attending Provider Dr. Elba Ontiveros Emergency Provider Kateryna, Dr. Tato Minayait Provider Kateryna, Dr. Godwin Attending Provider Dr. Tato Avendaño Other Provider Noé, Dr. Chun Attending Provider Noé, Dr. Chun Other Provider Geremias, Dr. Johana Person Attending Provider Geremias, Dr. Johana Person Other Provider Dr. Jonathan Bowling Other Provider Dr. Costa Figueroa Attending Provider Dr. Costa Figueroa Referring Provider Dr. Jennifer Watt Referring Provider Dr. Jonathan Davis Attending Provider Dr. Jennifer Watt Primary Care Provider Dr. Jennifer Watt Attending Provider Hugo PADDER CUSHION, PADDER CUSHION-C Adi Sorensen Attending Provider Dr. Jennifer Watt Primary Care Provider Dr. Jennifer Watt Referring Provider Dr. Jonathan Davis Attending Provider Hugo PADDER CUSHION, PADDER CUSHION-C Adi Sorensen Attending Provider Dr. Jennifer Watt Attending Provider Dr. Costa Figueroa Attending Provider Dr. Jennifer Watt Primary Care Provider Dr. Jennifer Watt Referring Provider Dr. Jennifer Watt Primary Care Provider Dr. Jennifer Watt Attending Provider Dr. Jennifer Watt Referring Provider Dr. Costa Figueroa Attending Provider Dr. Jennifer Watt Primary Care Provider Juan PADDER CUSHION, PADDER CUSHION-C [place] Attending Provider Dr. Jennifer Watt Primary Care Provider Dr. Jennifer Watt Referring Provider Dr. Costa Figueroa Attending Provider Juan PADDER CUSHION, PADDER CUSHION-C [place] Attending Provider Dr. Shelia Davenport Emergency Provider Dr. Shankar Nevarez Admit Provider [phone] Shankar Nevarez Other Provider [phone] Sania, Dr. Cardozo Other Provider Dr. Jesús Belcher Attending Provider Dr. Jesús Belcher Other Provider Dr. Juliane Lui Attending Provider Mitch, Dr. Jessica Peck Other Provider Mitch, Dr. Jessica Peck Attending Provider Shukri STRONG, Dr. Rodriguez Primary Care Provider Shukri STRONG, Dr. Rodriguez Attending Provider Gerson DPM, Dr. Pineda Attending Provider Gerson ALFONSO, Dr. Pineda Referring Provider Mason MEDELLIN, Dr. Nuno Emergency Provider Mandeep STRONG, Dr. Shon Hylton Admit Provider Mandeep STRONG, Dr. Shon Hylton Attending Provider Mandeep STRONG, Dr. Shon Hylton Other Provider Daniel MEDELLIN, Dr. Ospina Attending Provider Daniel MEDELLIN, Dr. Ospina Other Provider Geremias STRONG, Dr. Johana Person Attending Provider Geremias STRONG, Dr. Johana Person Other Provider Salbador STRONG, Dr. Rivera Attending Provider Salbador STRONG, Dr. Rivera Emergency Provider Shukri STRONG, Dr. Rodriguez Referring Provider Hugo HEREDIA, Adi Sorensen Attending Provider Wilfrid STRONG, Dr. Mac Clark Attending Provider Gerson ALFONSO, Dr. Pineda Other Provider Ivory Owen Attending Provider Shukri STRONG, Dr. Rodriguez Primary Care Provider Shukri STRONG, Dr. Rodriguez Attending Provider Gerson DPM, Dr. Pineda Attending Provider Gerson DPM, Dr. Pineda Referring Provider Holly STRONG, Dr. Skelton Attending Provider Holly STRONG, Dr. Skelton Other Provider Shukri STRONG, Dr. Rodriguez Primary Care Provider Shukri STRONG, Dr. Rodriguez Attending Provider Shukri STRONG, Dr. Rodriguez Referring Provider Holly STRONG, Dr. Skelton Referring Provider Shukri STRONG, Dr. Rodriguez Primary Care Provider Byron DPM, Dr. Pineda Referring Provider Gerson DPM, Dr. Pineda Other Provider Wilfrid STRONG, Dr. Mac Clark Attending Provider Gerson DPM, Dr. Pineda Attending Provider Holly STRONG, Dr. Skelton Referring Provider Shukri STRONG, Dr. Rodriguez Referring Provider [facility] Adi HEREDIA Attending Provider Issac MEDELLIN, Dr. Bass Referring Provider Issac DO, Dr. Bass Emergency Provider Shukri STRONG, Dr. Rodriguez Primary Care Provider Gerson DPM, Dr. Pineda Referring Provider Wilfrid STRONG, Dr. Mac Clark Attending Provider Jennifer Watt Primary Care Unavailable Edwin Nieto Referring Unavailable Edwin Nieto Attending Unavailable Jennifer Watt Primary Care Unavailable Costa Figueroa Referring Unavailable Costa Figueroa Attending Unavailable Shukri, Jennifer Primary Care Unavailable Franklin Pradhan Admitting Unavailable Franklin Pradhan Consulting Unavailable Jessica Meyer Attending Unavailable Shon Tobin Consulting Unavailable Anai Sanchez Consulting Unavailable Shukri, Jennifer Primary Care Unavailable Shukri, Jennifer Attending Unavailable Shukri, Jennifer Referring Unavailable Nathanael, Johnathan Chi Admitting Unavailable Nathanael, Johnathan Chi Referring Unavailable Nathanael, Johnathan Chi Attending Unavailable Shukri, Jennifer Primary Care Unavailable Shukri, Jennifer Primary Care Unavailable GersonEdwin Referring Unavailable ByronEdwin Attending Unavailable Shukri, Jennifer Primary Care Unavailable Baddour, Costa Referring Unavailable Baddour, Costa Attending Unavailable Shukri, Jennifer Primary Care Unavailable Baddour, Costa Referring Unavailable Baddour, Costa Attending Unavailable Shukri, Jennifer Primary Care Unavailable Roof PADDER CUSHION, Adi Sorensen Attending Unavailable Roof PADDER CUSHION, Adi H Referring Unavailable Shukri, Jennifer Primary Care Unavailable ByronEdwin hagan Referring Unavailable ByronEdwin hagan Attending Unavailable Shukri, Jennifer Referring Unavailable Shukri, Jennifer Primary Care Unavailable Baddour, Costa Consulting Unavailable Shukri, Jennifer Attending Unavailable Baddour, Costa Attending Unavailable Baddour, Costa Referring Unavailable Shukri, Jennifer Primary Care Unavailable ByronEdwin hagan Attending Unavailable Gerson Edwin Referring Unavailable Shukri, Jennifer Primary Care Unavailable Shukri, Jennifer Primary Care Unavailable Ungur, Remus Attending Unavailable Ungur, Remus Referring Unavailable ByronJohnel Attending Unavailable Byron, Edwin Referring Unavailable Shukri, Jennifer Primary Care Unavailable Miguel Siu Attending Unavailable Shukri, Jennifer Primary Care Unavailable Shukri, Jennifer Primary Care Unavailable Shukri, Jennifer Attending Unavailable Shukri, Jennifer Referring Unavailable de Franklin Laguerre Referring Unavailable [place] Attending Unavailable Shukri, Jennifer Primary Care Unavailable Shukri, Jennifer Primary Care Unavailable Baddour, Costa Referring Unavailable Baddour, Costa Attending Unavailable Shukri, Jennifer Primary Care Unavailable Shukri, Jennifer Attending Unavailable Shukri, Jennifer Referring Unavailable Shukri, Jennifer Primary Care Unavailable Shon Kaufman Admitting Unavailable Shon Kaufman Consulting Unavailable Johana Archuleta Attending Unavailable Daniel Anai Consulting Unavailable Shukri, Jennifer Primary Care Unavailable Ny Lara NP Attending Unavailable Shukri, Jennifer Referring Unavailable Shukri, Jennifer Primary Care Unavailable Edwin Nieto Referring Unavailable Edwin Nieto Attending Unavailable Costa Figueroa Attending Unavailable Baddour, Costa Referring Unavailable Shukri, Jennifer Primary Care Unavailable Shukri, Jennifer Primary Care Unavailable ShukriSharynen Attending Unavailable Shukri, Jennifre Primary Care Unavailable Shukri, Jennifer Referring Unavailable Hugo PADDER CUSHIONAdi Attending Unavailable Anai Sanchez Attending Unavailable Shukri, Jennifer Primary Care Unavailable Kotsonis, Shon F Admitting Unavailable Kotsonis, Shon F Consulting Unavailable Daniel, Anai Consulting Unavailable WhiteJohana L Attending Unavailable Johana Archuleta L Consulting Unavailable Shukri, Jennifer Primary Care Unavailable Kotsonis, Shon F Consulting Unavailable Kotsonis, Shon F Admitting Unavailable Johana Archuleta Attending Unavailable Daniel Anai Consulting Unavailable Johana Archuleta L Consulting Unavailable Shukri, Jennifer Referring Unavailable Shukri, Jennifer Primary Care Unavailable Hugo PADDER CUSHION, Adi Sorensen Attending Unavailable ShukriJennifer Attending Unavailable Shukri, Jennifer Primary Care Unavailable Shukri, Jennifer Primary Care Unavailable Edwin Nieto Referring Unavailable Edwin Nieto Consulting Unavailable Ivory Jurado Attending Unavailable Mandeep, Shon F Attending Unavailable Franklin Pradhan Admitting Unavailable Franklin Pradhan Consulting Unavailable Jessica Meyer Attending Unavailable Shukri, Jennifer Primary Care Unavailable Shon Tobin Consulting Unavailable Daniel Anai Consulting Unavailable Piedadam, Jessica Liv Consulting Unavailable Franklin Pradhan Attending Unavailable Anai Sanchez Attending Unavailable Shukri, Jennifer Primary Care Unavailable Shukri, Jennifer Referring Unavailable Roof PADDER CUSHIONAdi Attending Unavailable Shukri, Jennifer Primary Care Unavailable Baddour, Costa Referring Unavailable Baddour, Costa Attending Unavailable Shukri, Jennifer Primary Care Unavailable Shukri, Jennifer Attending Unavailable Shukri, Jennifer Primary Care Unavailable Natashadour, Costa Referring Unavailable NatashadourCosta Attending Unavailable Shukri, Jennifer Primary Care Unavailable Shukri, Jennifer Attending Unavailable Shukri, Jennifer Referring Unavailable Jennifer Watt Primary Care Unavailable Adi Arias NP Attending Unavailable Jennifer Watt Primary Care Unavailable Edwin Nieto Referring Unavailable Edwin Nieto Attending Unavailable Jennifer Watt Primary Care Unavailable Costa Figueroa Consulting Unavailable Jennifer Watt Attending Unavailable Jennifer Watt Referring Unavailable Allergies Allergy Classification Reported Allergen(s) Allergy Type Date of Onset Reaction(s) Facility (20 sources) Cholestyramine Resin Drug Allergy 2 hypoglycemia [facility] (20 sources) meloxicam Drug Allergy 2 itching [facility] (20 sources) Pravastatin Drug Allergy 2 myalgia [facility] (1 source) Cholestyramine Resin Drug Allergy 5 [facility] (1 source) meloxicam Drug Allergy 5 [facility] (1 source) Pravastatin Drug Allergy 5 [facility] Medications Current Medications Medication Drug Class(es) Dates Sig (Normalized) Sig (Original) acetaminophen 500 mg oral tablet (20 sources) Start: 01-09-2024 End: 03-09-2024 Start: 03-09-2022 End: 04-22-2022 Start: 02-27-2022 End: 03-09-2022 bisacodyl 10 mg rectal suppo sitory (5 sources) Stimulant Laxative Start: 01-26-2024 docusate sodium 50 mg / rupinder osides, alf 8.6 mg oral capsule (20 sources) Start: 01-26-2024 Start: 02-27-2022 End: 04-22-2022 Start: 02-27-2022 End: 04-22-2022 Start: 02-27-2022 End: 04-22-2022 take 2 tablets by mouth twice daily as needed Sennosides-Docusate Sodium (Stool Softener-Stimulant Laxat) 8.6-50 mg Tablet Discontinued 2 TABLET PO TWICE DAILY NEEDED 0 February 27, 2022 1:00am April 22, 2022 8:36pm ezetimibe 10 mg oral tablet (20 sources) Dietary Cholesterol Absorption Inhibitor Start: 07-18-2024 Start: 01-02-2021 End: 01-26-2024 Handicap Placard (20 sources) Start: 02-12-[address] Active 0 .Route .MEDSUPPLY February 12, 2021 2:52pm Length of time: 5 years Start: 02-12-[address] Active 0 .Route .MEDSUPPLY February 12, 2021 12:00am Length of time: 5 years Start: 02-12-[address] Active 0 .Route .MEDSUPPLY February 12, 2021 1:00am Length of time: 5 years Hospital bed (12 sources) Start: 03-02-2021 Hospital bed A ctive 0 .ROUTE .COMPLEX March 02, 2021 2:23pm hospital bed Start: 03-02-2021 Hospital bed A ctive 0 .ROUTE .COMPLEX March 02, 2021 12:00am hospital bed Start: 03-02-2021 Hospital bed A ctive 0 .ROUTE .COMPLEX March 02, 2021 1:00am hospital bed losartan potassium 25 mg ora l tablet (20 sources) Angiotensin 2 Receptor Wilmer Start: 03-29-2024 Start: 01-09-2024 End: 01-26-2024 Start: 02-27-2022 End: 07-14-2023 Start: 02-20-2022 End: 02-27-2022 multivitamin,wx-ejuk-mhmtzhu s tablet (20 sources) Start: 03-03-2017 take 1 tablet by mouth once daily multivitamin,xx-rgxe-kpqperzp tablet Active 1 TABLET PO daily March 03, 2017 5:10pm Start: 03-03-2017 take 1 tablet by meg th once daily multivitamin,iq-dpiz-cbujjrka tablet Act ashok 1 TABLET PO daily March 03, 2017 12:00am Start: 03-03-2017 take 1 tablet by meg th once daily multivitamin,bl-eqdb-snbvnxak tablet Act ashok 1 TABLET PO daily March 03, 2017 1:00am 24 hr oxybutynin chloride 15 mg extended release oral tablet (5 sources) Cholinergic Muscarinic Antagonist Start: 10-28-2023 polyethylene glycol 3350 170 00 mg powder for oral solution (20 sources) Osmotic Laxative Start: 03-29-2024 Start: 04-12-2022 End: 04-22-2022 microencapsulated potassium chloride 20 meq extended release oral tablet (20 sources) Start: 08-01-2023 End: 05-05-2024 Start: 04-07-2021 End: 05-13-2021 vitamin b12 1 mg/ml injectab le solution (11 sources) Vitamin B12 Start: 01-09-2024 Start: 05-18-2021 End: 05-18-2021 inject 1000 ug by intramuscular injection once cyanocobalamin (vitamin B-12) 1,000 mcg/mL injection solution Discontinued 1000 MCG IM ONCE May 18, 2021 2:52pm May 18, 2021 4:23pm Start: 04-21-2021 End: 04-21-2021 inject 1000 ug by intramuscular injection once cyanocobalamin (vitamin B-12) 1,000 mcg/mL injection solution Discontinued 1000 MCG IM ONCE April 21, 2021 4:49pm April 21, 2021 5:04pm (20 sources) Start: 04-10-2024 Start: 04-10-2024 Start: 04-10-2024 Start: 04-10-2024 Start: 04-10-2024 End: 04-10-2024 Start: 04-10-2024 End: 04-10-2024 Start: 03-29-2024 End: 07-18-2024 Start: 03-29-2024 Start: 01-26-2024 Start: 01-26-2024 End: 03-29-2024 Start: 11-23-2023 End: 01-26-2024 Start: 08-31-2023 End: 11-23-2023 Start: 07-14-2023 End: 08-31-2023 Start: 07-14-2023 Start: 10-26-2022 End: 07-09-2023 Start: 10-26-2022 Start: 10-26-2022 End: 10-26-2022 Start: 06-17-2022 End: 04-10-2024 Start: 06-17-2022 Start: 06-14-2022 End: 06-17-2022 Start: 02-24-2022 End: 03-09-2022 Start: 02-24-2022 End: 04-12-2022 Start: 02-24-2022 Start: 06-02-2021 End: 06-14-2022 Start: 06-02-2021 Start: 06-02-2021 End: 06-02-2021 Start: 06-02-2021 End: 06-02-2021 Start: 02-12-2021 Start: 01-27-2021 End: 02-24-2022 Start: 03-03-2017 End: 01-26-2024 Start: 03-03-2017 Completed/Discontinued Medications Medication Drug Class(es) Dates Sig (Normalized) Sig (Original) albuterol 0.83 mg/ml inhalation solution (20 sources) beta2-Adrenergic Agonist Start: 04-12-2022 End: 04-22-2022 Start: 04-12-2022 End: 04-22-2022 albuterol 0.833 mg/ml / ipratropium bromide 0.167 mg/ml inhalation solution (20 sources) Anticholinergic, beta2-Adrenergic Agonist Start: 02-27-2022 End: 03-09-2022 Start: 02-27-2022 End: 03-09-2022 Start: 02-27-2022 End: 03-09-2022 take 1 mL by inhalation every six hours Ipratropium-Albuterol Discontinued 3 ML INHALATION EVERY 6 HOURS WHILE AWAKE 0 February 27, 2022 1:00am March 09, 2022 9:10am amiodarone hydrochloride 200 mg oral tablet (20 sources) Antiarrhythmic Start: 07-14-2023 End: 08-14-2024 Start: 07-14-2023 amLODIPine 10 mg oral tablet (20 sources) Dihydropyridine Calcium Channel Wilmer Start: 01-09-2024 End: 02-14-2024 Start: 08-03-2022 End: 07-14-2023 Start: 03-09-2022 End: 08-03-2022 Start: 02-18-2022 End: 03-09-2022 Start: 02-18-2022 End: 03-09-2022 take 5 mg by mouth once daily Amlodipine Discontinued 5 MG PO DAILY February 27, 2022 4:54pm March 09, 2022 9:09am Start: 05-13-2021 End: 01-06-2022 take 10 mg by mouth once daily Amlodipine Discontinued 10 MG PO DAILY May 13, 2021 4:07pm January 06, 2022 2:49pm Start: 05-02-2021 End: 05-13-2021 take 10 mg by mouth twice daily Amlodipine Discontinued 10 MG PO TWICE A DAY May 02, 2021 3:18pm May 13, 2021 4:09pm Start: 02-04-2021 End: 05-02-2021 take 5 mg by mouth twice daily Amlodipine Discontinued 5 MG PO TWICE A DAY February 04, 2021 1:00am May 02, 2021 3:19pm Start: 12-31-2020 End: 01-06-2022 Start: 12-31-2020 End: 02-04-2021 take 10 mg by mouth once daily Amlodipine Discontinued 10 MG PO DAILY December 31, 2020 12:00am February 04, 2021 10:29am amoxicillin 500 mg oral caps ule (20 sources) Penicillin-class Antibacterial Start: 07-05-2022 End: 09-01-2022 Start: 07-05-2022 End: 09-01-2022 Start: 07-05-2022 End: 09-01-2022 take 1000 mg by mouth once Amoxicillin Discontinued 10 00 MG PO ONCE 2 July 05, 2022 12:00am September 01, 2022 2:35pm amoxicillin 500 mg / clavula darshan 125 mg oral tablet (20 sources) Penicillin-class Antibacterial Start: 02-27-2022 End: 03-09-2022 Start: 02-27-2022 End: 03-09-2022 Start: 02-27-2022 End: 03-09-2022 take 1 tablet by mouth twice daily Amoxicillin-Pot Clavulanate (Augmentin) 500-125 mg tablet Discontinued 1 TABLET PO TWICE A DAY February 27, 2022 4:54pm March 09, 2022 9:08am apixaban 5 mg oral tablet (5 sources) Factor Xa Inhibitor Start: 12-15-2023 End: 01-26-2024 Arthritis Pain Compound (20 sources) Start: 02-24-2022 End: 03-09-2022 Arthritis Pain Compound Discontinued 1 APPLIC TOPICAL TWICE A DAY February 24, 2022 5:28pm March 09, 2022 9:08am Start: 02-24-2022 End: 03-09-2022 Arthritis Pain Compound Disc ontinued 1 CLICK TOPICAL TWICE A DAY February 24, 2022 5:28pm March 09, 2022 9:08am Start: 02-24-2022 End: 03-09-2022 Arthritis Pain Compound Disc ontinued 1 CLICK TOPICAL TWICE A DAY February 24, 2022 4:28pm March 09, 2022 8:08am Start: 01-27-2021 Arthritis Pain Compound Active 0 CLICK TOPICAL TWICE A DAY 0 January 27, 2021 8:03pm Start: 01-27-2021 End: 02-24-2022 Arthritis Pain Compound Disc ontinued 0 APPLIC TOPICAL TWICE A DAY 0 January 27, 2021 1:00am February 24, 2022 5:28pm Start: 01-27-2021 End: 02-24-2022 Arthritis Pain Compound Disc ontinued 0 CLICK TOPICAL TWICE A DAY 0 January 27, 2021 1:00am February 24, 2022 5:28pm Start: 01-27-2021 End: 02-24-2022 Arthritis Pain Compound Disc ontinued 0 CLICK TOPICAL TWICE A DAY 0 January 27, 2021 12:00am February 24, 2022 4:28pm Start: 01-27-2021 Arthritis Pain Compound Active 0 CLICK TOPICAL TWICE A DAY 0 January 27, 2021 12:00am Start: 01-27-2021 Arthritis Pain Compound Active 0 CLICK TOPICAL TWICE A DAY 0 January 27, 2021 1:00am aspirin 81 mg chewable tablet (20 sources) Platelet Aggregation Inhibitor, Nonsteroidal Anti-inflammatory Drug Start: 01-02-2021 End: 07-07-2023 Start: 01-02-2021 End: 07-07-2023 Start: 01-02-2021 End: 07-07-2023 take 81 mg by mouth at breakfast Aspirin Discontinued 81 MG PO WITH BREAKFAST January 02, 2021 7:02pm July 07, 2023 12:06pm benzonatate 100 mg oral caps ule (5 sources) Non-narcotic Antitussive Start: 03-12-2024 End: 03-29-2024 carvedilol 3.125 mg oral tab let (20 sources) alpha-Adrenergic Wilmer, beta-Adrenergic Wilmer Start: 08-01-2023 End: 08-16-2023 Start: 08-12-2022 End: 08-01-2023 Start: 11-03-2021 End: 08-12-2022 Start: 11-03-2021 End: 08-12-2022 take 12.5 mg by mouth twice daily at mealtime Carvedilol Discontinued 12.5 MG PO TWICE A DAY July 21, 2022 6:02pm August 12, 2022 11:45am must administer with a meal/food Start: 10-23-2021 End: 11-03-2021 chlorthalidone 25 mg oral ta blet (20 sources) Thiazide-like Diuretic Start: 12-31-2020 End: 01-27-2021 ciprofloxacin 500 mg oral ta blet (19 sources) Quinolone Antimicrobial Start: 03-09-2024 End: 03-22-2024 Start: 01-12-2023 End: 02-01-2023 cloNIDine hydrochloride 0.1 mg oral tablet (20 sources) Central alpha-2 Adrenergic Agonist Start: 07-09-2022 End: 05-19-2023 Start: 11-03-2021 End: 02-20-2022 Start: 11-03-2021 End: 02-16-2022 take 0.1 mg by mouth three times daily Clonidine Hcl Discontinued 0.1 MG PO THREE TIMES A DAY January 06, 2022 2:46pm February 16, 2022 4:06pm Start: 11-03-2021 End: 02-20-2022 take 0.4 mg by mouth twice daily Clonidine Hcl Discontinued 0.4 MG PO TWICE A DAY February 16, 2022 4:05pm February 20, 2022 1:42pm Start: 05-29-2021 End: 11-03-2021 Start: 05-29-2021 End: 11-03-2021 take 0.2 mg by mouth three times daily Clonidine Hcl Discontinued 0.2 MG PO THREE TIMES A DAY June 08, 2021 3:40pm November 03, 2021 2:12pm Start: 05-22-2021 End: 05-29-2021 Start: 04-24-2021 End: 05-13-2021 clopidogrel 75 mg oral table t (20 sources) [id number] Platelet Inhibitor Start: 01-06-2022 End: 07-18-2024 Start: 01-02-2021 End: 01-27-2021 dapagliflozin 5 mg oral tabl et (20 sources) Sodium-Glucose Cotransporter 2 Inhibitor Start: 05-19-2022 End: 09-01-2022 12 hr dextromethorphan hydrobromide 30 mg / guaiFENesin 600 mg extended release oral tablet (5 sources) Uncompetitive J-cvnplz-Q-aspartate Receptor Antagonist, Sigma-1 Agonist Start: 01-26-2024 End: 03-22-2024 doxazosin 4 mg oral tablet (20 sources) alpha-Adrenergic Wilmer Start: 07-14-2023 End: 02-27-2024 Start: 07-14-2023 Start: 09-28-2021 End: 07-14-2023 Start: 09-28-2021 End: 07-14-2023 Start: 09-28-2021 End: 11-19-2022 take 8 mg by mouth at bedtime Doxazosin Discontinued 8 MG PO AT BEDTIME November 19, 2022 3:38pm November 19, 2022 3:39pm Start: 08-25-2021 End: 09-28-2021 Start: 08-25-2021 End: 09-28-2021 Start: 08-25-2021 End: 09-28-2021 take 4 mg by mouth at bedtime Doxazosin Discontinued 4 MG PO AT BEDTIME August 25, 2021 12:00am September 28, 2021 12:30pm 0.4 ml enoxaparin sodium 100 mg/ml prefilled syringe (20 sources) Low Molecular Weight Heparin Start: 01-02-2021 End: 01-27-2021 Start: 01-02-2021 End: 01-27-2021 Start: 01-02-2021 End: 01-27-2021 Enoxaparin (Lovenox) 40 mg/0 .4 mL Syringe Discontinued 40 MG SC DAILY January 02, 2021 12:00am January 27, 2021 7:52pm 10 ml ferric derisomaltose 1 00 mg/ml injection (16 sources) Start: 11-24-2022 End: 11-30-2022 Start: 11-24-2022 End: 11-30-2022 take 1000 mg intravenously once Ferric Derisomaltose (Monoferric) 100 mg iron/mL solution Discontinued 1000 MG .Route ONCE November 24, 2022 12:00am November 30, 2022 4:23pm 1000 mg IV x1. ferrous sulfate 325 mg oral tablet (20 sources) Start: 04-12-2022 End: 05-13-2022 Start: 02-24-2022 End: 04-12-2022 take 65 mg by mouth once daily Ferrous Sulfate Discont inued 65 MG PO DAILY February 24, 2022 12:00am April 12, 2022 11:33am Start: 02-24-2022 End: 04-12-2022 take 65 mg by mouth once daily Ferrous Sulfate Discont inued 65 MG PO DAILY February 24, 2022 1:00am April 12, 2022 12:33pm Start: 02-24-2022 take 65 mg by mouth once daily Ferrous Sulfate Active 65 MG PO DAILY February 24, 2022 12:00am finasteride 5 mg oral tablet (20 sources) 5-alpha Reductase Inhibitor Start: 07-09-2023 End: 08-10-2023 Start: 11-25-2022 End: 05-19-2023 furosemide 40 mg oral tablet (20 sources) Loop Diuretic Start: 08-03-2022 End: 07-19-2024 Start: 04-21-2021 End: 05-13-2021 gabapentin 300 mg oral capsu le (20 sources) Anti-epileptic Agent Start: 01-27-2021 End: 06-12-2024 Start: 01-27-2021 End: 07-18-2024 Start: 01-27-2021 End: 05-04-2023 Start: 01-27-2021 End: 05-04-2023 Gabapentin Discontinued 300 MG PO 2099March 18, 2022 1:44pm May 04, 2023 11:38am hydrALAZINE hydrochloride 10 0 mg oral tablet (20 sources) Arteriolar Vasodilator Start: 08-23-2023 End: 09-22-2023 Start: 08-10-2023 End: 08-16-2023 Start: 08-01-2023 End: 08-23-2023 Start: 06-30-2023 Hydralazine Ac tive 75 MG PO .COMPLEX 540 June 30, 2023 4:59pm 75 mg orally 75mg in afternoon and evening orally.; Start: 02-24-2023 End: 06-30-2023 Hydralazine Discontinued 0 P O .COMPLEX February 24, 2023 4:00pm June 30, 2023 5:01pm Take 100mg in AM and 75mg in afternoon and evening orally; 100mg in AM, 75mg in afternoon, 75mg in the evening. Start: 02-01-2023 End: 07-14-2023 Start: 02-01-2023 End: 07-14-2023 Start: 02-01-2023 Hydralazine Ac tive 100 MG PO ONCE February 01, 2023 1:00am 100mg in AM, 75mg in afternoon, 75mg in evening Start: 03-09-2022 End: 07-14-2023 Start: 03-09-2022 End: 02-01-2023 take 75 mg by mouth three times daily Hydralazine Discontinued 75 MG PO THREE TIMES A DAY 270 November 24, 2022 5:10pm February 01, 2023 4:16pm Start: 02-20-2022 End: 03-09-2022 Start: 02-20-2022 End: 03-09-2022 Hydralazine Discontinued 75 MG PO THREE TIMES A DAY February 27, 2022 4:54pm March 09, 2022 9:09am Hold for SBP less than 130 mmHg hydroCHLOROthiazide 25 mg or al tablet (20 sources) Thiazide Diuretic Start: 04-05-2022 End: 08-03-2022 Start: 04-05-2022 End: 08-03-2022 take 12.5 mg by mouth once daily Hydrochlorothiazide Discontinued 12.5 MG PO DAILY July 02, 2022 4:19pm August 03, 2022 3:30pm Start: 05-13-2021 End: 02-20-2022 3 ml insulin glargine 100 un t/ml pen injector (20 sources) Insulin Analog Start: 01-26-2024 End: 06-21-2024 Start: 01-03-2023 Insulin Glargi ne (Basaglar Alinikpen U-100 Insulin) 100 unit/mL (3 mL) insulin pen Active 24 UNIT SC DAILY January 03, 2023 12:00am Start: 11-03-2022 End: 01-03-2023 Insulin Glargine (Basaglar K wikpen U-100 Insulin) 100 unit/mL (3 mL) insulin pen Discontinued 14 UNIT SC DAILY November 03, 2022 11:11am January 03, 2023 3:07pm Start: 06-15-2022 End: 07-14-2023 Start: 06-15-2022 End: 07-14-2023 Start: 06-15-2022 End: 11-03-2022 Insulin Glargine (Basaglar K wikpen U-100 Insulin) 100 unit/mL (3 mL) insulin pen Discontinued 18 UNIT SC DAILY August 10, 2022 8:46pm November 03, 2022 11:11am Start: 02-16-2022 End: 03-09-2022 Insulin Glargine (Basaglar K wikpen U-100 Insulin) 100 unit/mL (3 mL) insulin pen Discontinued 16 UNIT SC DAILY February 16, 2022 4:05pm March 09, 2022 9:10am Start: 02-16-2022 Insulin Glargi ne (Basaglar Patriziapen U-100 Insulin) 100 unit/mL (3 mL) insulin pen Active 14 UNIT SC DAILY February 16, 2022 3:05pm Start: 07-01-2021 End: 02-16-2022 Insulin Glargine (Basaglar K wikpen U-100 Insulin) 100 unit/mL (3 mL) insulin pen Discontinued 10 UNIT SC DAILY 0 July 01, 2021 1:43pm February 16, 2022 4:06pm Start: 01-27-2021 End: 07-01-2021 Insulin Glargine (Basaglar K wikpen U-100 Insulin) 100 unit/mL (3 mL) insulin pen Discontinued 20 UNIT SC DAILY 0 January 27, 2021 8:05pm July 01, 2021 1:44pm Start: 12-31-2020 End: 03-09-2022 Start: 12-31-2020 End: 03-09-2022 Start: 12-31-2020 End: 01-27-2021 Insulin Glargine (Basaglar K wikpen U-100 Insulin) 100 unit/mL (3 mL) insulin pen Discontinued 30 UNIT SC DAILY December 31, 2020 12:00am November 16th, 2021 8:06pm Insulin Glargine-Yfgn (20 sources) Start: 06-14-2022 End: 06-15-2022 Insulin Glargine-Yfgn Discon tinued 18 UNIT SC DAILY June 14, 2022 2:30pm June 15, 2022 2:05pm Start: 06-14-2022 End: 06-15-2022 Insulin Glargine-Yfgn Discon tinued 18 UNIT SC DAILY June 14, 2022 3:30pm June 15, 2022 3:05pm Start: 06-14-2022 End: 06-15-2022 Start: 04-12-2022 End: 06-14-2022 Insulin Glargine-Yfgn Discon tinued 18 UNIT SC DAILY April 12, 2022 11:42am June 14, 2022 2:30pm Start: 04-12-2022 End: 06-14-2022 Insulin Glargine-Yfgn Discon tinued 18 UNIT SC DAILY April 12, 2022 12:42pm June 14, 2022 3:30pm Start: 04-12-2022 End: 06-14-2022 Start: 04-12-2022 Start: 04-05-2022 End: 04-12-2022 Insulin Glargine-Yfgn Discon tinued 14 UNIT SC DAILY April 05, 2022 10:31am April 12, 2022 11:42am Start: 04-05-2022 End: 04-12-2022 Insulin Glargine-Yfgn Discon tinued 14 UNIT SC DAILY April 05, 2022 11:31am April 12, 2022 12:42pm Start: 04-05-2022 End: 04-12-2022 Start: 04-05-2022 Start: 03-17-2022 End: 04-05-2022 Insulin Glargine-Yfgn Discon tinued 14 UNIT SC DAILY March 17, 2022 1:46pm April 05, 2022 10:35am Start: 03-17-2022 End: 04-05-2022 Insulin Glargine-Yfgn Discon tinued 14 UNIT SC DAILY March 17, 2022 2:46pm April 05, 2022 11:35am Start: 03-17-2022 End: 04-05-2022 Start: 03-09-2022 End: 03-17-2022 Insulin Glargine-Yfgn Discon tinued 30 UNIT SC DAILY 12 11March 09, 2022 12:00am March 17, 2022 1:47pm Start: 03-09-2022 End: 03-17-2022 Insulin Glargine-Yfgn Discon tinued 30 UNIT SC DAILY 12 11March 09, 2022 1:00am March 17, 2022 2:47pm Start: 03-09-2022 End: 03-17-2022 Start: 03-09-2022 Insulin Glargi ne-Yfgn Active 30 UNIT SC DAILY 12 11March 09, 2022 12:00am Start: 02-27-2022 End: 03-09-2022 Insulin Glargine-Yfgn Discon tinued 20 UNIT SC DAILY February 27, 2022 4:54pm March 09, 2022 9:10am Hold if glucose less than 130 mg/dl Start: 02-27-2022 End: 03-09-2022 Start: 02-27-2022 End: 03-09-2022 Insulin Glargine-Yfgn Discon tinued 20 UNIT SC DAILY February 27, 2022 3:54pm March 09, 2022 8:10am Hold if glucose less than 130 mg/dl Start: 02-27-2022 End: 02-27-2022 Insulin Glargine-Yfgn Discon tinued 20 UNIT SC DAILY 0 February 27, 2022 1:00am February 27, 2022 4:54pm Hold if glucose less than 130 mg/dl Start: 02-27-2022 End: 02-27-2022 Start: 02-27-2022 End: 02-27-2022 Insulin Glargine-Yfgn Discon tinued 20 UNIT SC DAILY 0 February 27, 2022 12:00am February 27, 2022 3:54pm Hold if glucose less than 130 mg/dl 3 ml insulin lispro 100 unt/ ml pen injector (20 sources) Insulin Analog Start: 03-29-2024 End: 06-28-2024 Start: 01-03-2023 End: 01-10-2023 Insulin Lispro (Humalog Kwik pen Insulin) 100 unit/mL insulin pen Active 1 UNIT SC THREE TIMES DAILY BEFORE MEALS January 10, 2023 1:09pm Start: 11-03-2022 End: 01-03-2023 Insulin Lispro (Humalog Kwik pen Insulin) 100 unit/mL insulin pen Discontinued 4 UNIT SC THREE TIMES DAILY BEFORE MEALS November 03, 2022 11:11am January 03, 2023 3:07pm Start: 03-17-2022 End: 11-03-2022 Insulin Lispro (Humalog Kwik pen Insulin) 100 unit/mL Insulin Pen Discontinued 6 UNIT SC THREE TIMES DAILY BEFORE MEALS April 12, 2022 1:00am April 22, 2022 8:33pm Start: 03-09-2022 End: 03-17-2022 Insulin Lispro (Humalog Kwik pen Insulin) 100 unit/mL Insulin Pen Discontinued 10 UNIT SC THREE TIMES DAILY BEFORE MEALS 12 11March 09, 2022 1:00am March 17, 2022 2:47pm Start: 02-27-2022 End: 12-15-2023 Start: 02-27-2022 End: 01-10-2023 10 ml iron sucrose 20 mg/ml injection (20 sources) Parenteral Iron Replacement Start: 09-22-2023 End: 01-09-2024 Start: 11-30-2022 End: 02-01-2023 latanoprost 0.05 mg/ml ophth almic solution (20 sources) Prostaglandin Analog Start: 01-27-2021 End: 03-29-2024 Start: 01-27-2021 End: 02-24-2022 levoFLOXacin 750 mg oral tab let (20 sources) Quinolone Antimicrobial Start: 02-20-2022 End: 02-27-2022 magnesium oxide 400 mg oral tablet (20 sources) Start: 01-27-2021 End: 04-06-2021 melatonin 10 mg sublingual t ablet (20 sources) Start: 03-09-2022 End: 03-17-2022 Start: 03-09-2022 End: 03-17-2022 Start: 03-09-2022 End: 03-17-2022 take 10 mg by mouth at bedtime Melatonin Discontinued 10 MG PO AT BEDTIME March 09, 2022 1:00am March 17, 2022 2:45pm metFORMIN hydrochloride 1000 mg oral tablet (20 sources) Biguanide Start: 02-24-2022 End: 02-27-2022 Start: 02-24-2022 End: 02-27-2022 Start: 02-24-2022 End: 02-27-2022 take 1000 mg by mouth at bedtime Metformin Discontinued 1000 MG PO AT BEDTIME February 24, 2022 1:00am February 27, 2022 12:46pm Start: 02-16-2022 take 1000 mg by mouth at dinne r Metformin Active 1000 MG PO WITH DINNER February 16, 2022 12:00am Start: 03-03-2017 End: 03-09-2022 Start: 03-03-2017 End: 03-09-2022 Metformin Discontinued 0 .RO VAL .COMPLEX 270 January 06, 2022 2:48pm February 16, 2022 4:06pm 500 mg in the AM and 1,000 mg with supper daily metoprolol tartrate 50 mg or al tablet (20 sources) beta-Adrenergic Wilmer Start: 10-12-2021 End: 10-23-2021 Start: 09-16-2021 End: 10-12-2021 Start: 05-13-2021 End: 09-16-2021 Start: 05-13-2021 End: 09-16-2021 take 75 mg by mouth twice daily Metoprolol Tartrate Di scontinued 75 MG PO TWICE A DAY May 21, 2021 12:11pm July 15, 2021 3:47pm Start: 05-02-2021 End: 05-13-2021 take 50 mg by mouth once daily in the morning, then take 25 mg by mouth once daily in the evening Metoprolol Tartrate Discontinued 25 MG PO TWICE A DAY May 02, 2021 3:18pm May 13, 2021 4:07pm 50 mg every morning and 25 mg every evening. Start: 03-02-2021 End: 05-02-2021 take 50 mg by mouth once daily in the morning, then take 25 mg by mouth once daily in the evening Metoprolol Tartrate Discontinued 75 MG PO DAILY 270 March 30, 2021 4:58pm April 06, 2021 2:37pm 50 mg every morning and 25 mg every evening. Start: 03-02-2021 End: 03-02-2021 take 50 mg by mouth at bedtime Metoprolol Tartrate Dis continued 50 MG PO AT BEDTIME March 02, 2021 10:18am March 02, 2021 1:04pm Start: 01-27-2021 End: 05-13-2021 NIFEdipine 30 mg osmotic 24 hr extended release oral tablet (20 sources) Dihydropyridine Calcium Channel Wilmer Start: 02-15-2022 End: 02-20-2022 nitrofurantoin, macrocrystals 100 mg oral capsule (5 sources) Nitrofuran Antibacterial Start: 03-11-2024 End: 03-29-2024 oxyCODONE hydrochloride 5 mg oral tablet (5 sources) Opioid Agonist Start: 12-15-2023 End: 01-09-2024 Oxygen (14 sources) Start: 10-26-2022 End: 07-09-2023 oxygen Discontinued 0 .Route .[facility] 1 October 26, 2022 4:07pm July 09, 2023 3:43am DC ALL OXYGEN ORDERS Start: 10-26-2022 oxygen Active 0 .Route .[facility] 1 October 26, 2022 3:07pm DC ALL OXYGEN ORDERS Start: 10-26-2022 oxygen Active 0 .Route .[facility] 1 October 26, 2022 4:07pm DC ALL OXYGEN ORDERS Start: 10-26-2022 End: 10-26-2022 oxygen Discontinued 0 .Route .[facility] October 25, 2022 11:00pm October 26, 2022 3:08pm DC ALL OXYGEN ORDERS Start: 10-26-2022 End: 10-26-2022 oxygen Discontinued 0 .Route .[facility] October 26, 2022 12:00am October 26, 2022 4:08pm DC ALL OXYGEN ORDERS pramipexole dihydrochloride 0.125 mg oral tablet (20 sources) Nonergot Dopamine Agonist Start: 01-27-2021 End: 11-08-2023 Start: 01-27-2021 End: 12-24-2022 Start: 01-27-2021 End: 12-24-2022 take 0.125 mg by mouth at bedtime Pramipexole Discontinued 0.125 MG PO AT BEDTIME October 13, 2021 4:01pm February 24, 2022 5:28pm sertraline 50 mg oral tablet (20 sources) Serotonin Reuptake Inhibitor Start: 01-06-2022 End: 05-05-2024 Start: 01-27-2021 End: 07-15-2021 Start: 01-27-2021 End: 07-15-2021 take 1 tablet by mouth once daily, then take 0.5 tablet by mouth in the morning Sertraline Discontinued 75 MG PO DAILY 135 February 04, 2021 10:32am July 15, 2021 3:12pm take 1 and a half tablets each AM with breakfast spironolactone 50 mg oral ta blet (20 sources) Aldosterone Antagonist Start: 04-12-2022 End: 04-22-2022 Start: 11-18-2021 End: 02-20-2022 Start: 06-12-2021 End: 11-18-2021 sulfamethoxazole 400 mg / trimethoprim 80 mg oral tablet (5 sources) Dihydrofolate Reductase Inhibitor Antibacterial, Sulfonamide Antimicrobial Start: 09-07-2023 End: 11-11-2023 tamsulosin hydrochloride 0.4 mg oral capsule (16 sources) alpha-Adrenergic Wilmer Start: 11-25-2022 End: 06-03-2023 Start: 11-25-2022 End: 06-03-2023 Start: 11-25-2022 End: 06-03-2023 take 0.4 mg by mouth at bedtime Tamsulosin Discontinue d 0.4 MG PO AT BEDTIME November 25, 2022 12:00am June 03, 2023 12:09pm triamcinolone acetonide 1 mg /ml topical cream (20 sources) Corticosteroid Start: 10-12-2022 End: 11-09-2022 Start: 10-12-2022 End: 11-09-2022 Start: 10-12-2022 End: 11-09-2022 Triamcinolone Acetonide Disc ontinued 1 APPLIC TOPICAL TWICE A DAY 10 01October 12, 2022 12:00am November 09, 2022 8:59pm valsartan 320 mg oral tablet (20 sources) Angiotensin 2 Receptor Wilmer Start: 02-16-2022 End: 02-20-2022 take 160 mg by mouth at bedtime Valsartan Discontinued 160 MG PO AT BEDTIME February 16, 2022 4:05pm February 20, 2022 1:43pm Start: 12-31-2020 End: 02-20-2022 Start: 12-31-2020 End: 02-20-2022 Start: 12-31-2020 End: 02-16-2022 take 320 mg by mouth at bedtime Valsartan Discontinued 320 MG PO AT BEDTIME 90 January 06, 2022 2:48pm February 16, 2022 4:06pm Problems Active Problems Problem Classification Problem Date Documented Da te Episodic/Chronic Acute and unspecified renal failure (20 sources) Injury of kidney; Translations: [Acute kidney failure, unspecified] Episodic Acute cerebrovascular disease (20 sources) Weakness of face muscles; Translations: [Cerebral infarction, unspecified] Chronic Aspiration pneumonitis; food/vomitus (20 sources) Aspiration pneumonia; Translations: [Pneumonitis due to inhalation of food and vomit] Episodic Cardiac dysrhythmias (20 sources) EKG: ventricular tachycardia; Translations: [Ventricular tachycardia] Onset: Chronic Cardiac dysrhythmias (20 sources) Bradycardia; Translations: [Bradycardia, unspecified] Episodic Chronic kidney disease (20 sources) Chronic kidney disease stage 3; Translations: [Chronic kidney disease (CKD) stage G3a/A1, moderately decreased glomerular filtration] Onset: 4 04-05-2022 Chronic Chronic kidney disease (2 sources) Chronic kidney disease; Translations: [Chronic kidney disease, stage 3b] Onset: 4 Chronic ulcer of skin (20 sources) Non-pressure chronic ulcer of left heel and midfoot with fat layer exposed; Translations: [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] Onset: 5 04-27-2024 Chronic Conditions associated with dizziness or vertigo (20 sources) Dizziness; Translations: [Dizziness and giddiness] Episodic Congestive heart failure; nonhypertensive (20 sources) Congestive heart failure; Translations: [Heart failure, unspecified] Onset: 5 04-05-2022 Chronic Coronary atherosclerosis and other heart disease (20 sources) Coronary arteriosclerosis; Translations: [Atherosclerotic heart disease of [place] coronary artery without angina pectoris] Chronic Deficiency and other anemia (20 sources) Normocytic normochromic anemia; Translations: [Anemia, unspecified] 05-01-2021 Episodic Deficiency and other anemia (20 sources) Anemia; Translations: [Anemia, unspecified] 01-19-2022 Episodic Deficiency and other anemia (20 sources) Anemia, unspecified; Translations: [Anemia, unspecified] Onset: Episodic Deficiency and other anemia (20 sources) Chronic anemia; Translations: [Anemia, unspecified] 02-24-2022 Episodic Deficiency and other anemia (20 sources) Iron deficiency anemia; Translations: [Iron deficiency anemia, unspecified] 04-12-2022 Episodic Deficiency and other anemia (20 sources) Iron deficiency anemia, unspecified; Translations: [Iron deficiency anemia, unspecified] Onset: 5 04-24-2022 Episodic Diabetes mellitus with complications (20 sources) Proteinuria due to type 2 diabetes mellitus; Translations: [Type 2 diabetes mellitus with other diabetic kidney complication] Onset: 5 05-01-2021 Chronic Diabetes mellitus without complication (20 sources) Type 2 diabetes mellitus; Translations: [Type 2 diabetes mellitus without complications] Onset: 4 Chronic Diseases of white blood cells (5 sources) Leukocytosis; Translations: [Elevated white blood cell count, unspecified] 03-17-2024 Chronic Disorders of lipid metabolism (20 sources) Hyperlipidemia; Translations: [Hyperlipidemia, unspecified] Onset: 4 Chronic Essential hypertension (20 sources) Essential hypertension; Translations: [Essential (primary) hypertension] Onset: 4 Chronic Fluid and electrolyte disorders (20 sources) Hypokalemia; Translations: [Hypokalemia] Onset: 5 Episodic Genitourinary symptoms and ill-defined conditions (20 sources) Increased frequency of urination; Translations: [Frequency of micturition] Episodic Glaucoma (20 sources) Glaucoma; Translations: [Unspecified glaucoma] Onset: 5 Chronic Hyperplasia of prostate (20 sources) Benign prostatic hyperplasia; Translations: [Benign prostatic hyperplasia without lower urinary tract symptoms] Onset: 5 Chronic Hypertension with complications and secondary hypertension (1 source) Hypertensive chronic kidney disease with stage 1 through stage 4 chronic kidney disease, or unspecified chronic kidney disease; Translations: [Hypertensive chronic kidney disease with stage 1 through stage 4 chronic kidney disease, or unspecified chronic kidney disease] Onset: 5 Chronic Malaise and fatigue (1 source) Chronic fatigue, unspecified; Translations: [Chronic fatigue, unspecified] Onset: 5 Chronic Malaise and fatigue (20 sources) Fatigue; Translations: [Other fatigue] Onset: 4 Episodic Mood disorders (20 sources) Depressive disorder; Translations: [Depression] Chronic Mycoses (20 sources) Onychomycosis due to dermatophyte ; Translations: [Tinea unguium] Episodic Nutritional deficiencies (1 source) Vitamin D deficiency, unspecified; Translations: [Vitamin D deficiency, unspecified] Onset: 4 Chronic Nutritional deficiencies (20 sources) Iron deficiency; Translations: [Iron deficiency] Onset: 5 Episodic Osteoarthritis (6 sources) Osteoarthritis; Translations: [Unspecified osteoarthritis, unspecified site] Onset: 4 12-23-2023 Chronic Other aftercare (3 sources) Patient encounter status; Translations: [Encounter for therapeutic drug level monitoring] 07-07-2023 Episodic Other aftercare (5 sources) Long-term current use of diuretic; Translations: [Encounter for therapeutic drug level monitoring] 07-07-2023 Episodic Other aftercare (1 source) Encounter for follow-up examination after completed treatment for conditions other than malignant neoplasm; Translations: [Encounter for follow-up examination after completed treatment for conditions other than malignant neoplasm] Onset: 5 Episodic Other circulatory disease (20 sources) Foot pulse absent; Translations: [Other specified symptoms and signs involving the circulatory and respiratory systems] 05-01-2021 Episodic Other circulatory disease (20 sources) History of cerebrovascular accident; Translations: [Personal history of transient ischemic attack (TIA), and cerebral infarction without residual deficits] Onset: 1 02-24-2022 Episodic Other circulatory disease (20 sources) Personal history of transient ischemic attack (TIA), and cerebral infarction without residual deficits; Translations: [Personal history of transient ischemic attack (TIA), and cerebral infarction without residual deficits] Onset: 1 Episodic Other circulatory disease (20 sources) Low blood pressure; Translations: [Hypotension, unspecified] 02-28-2022 Episodic Other circulatory disease (8 sources) Hypotension, unspecified; Translations: [Hypotension, unspecified] Episodic Other circulatory disease (8 sources) H/O: heart failure; Translations: [Personal history of other diseases of the circulatory system] 07-06-2023 Episodic Other connective tissue disease (5 sources) History of repair of hip joint; Translations: [Presence of unspecified artificial hip joint] 12-23-2023 Chronic Other connective tissue disease (1 source) Presence of unspecified artificial hip joint; Translations: [Presence of unspecified artificial hip joint] Onset: Chronic Other connective tissue disease (20 sources) Muscle weakness; Translations: [Muscle weakness (generalized)] 05-01-2021 Episodic Other connective tissue disease (20 sources) Pain in toe; Translations: [Pain in left toe(s)] 03-18-2022 Episodic Other connective tissue disease (6 sources) Pain in left toe(s); Translations: [Pain in limb] Episodic Other connective tissue disease (17 sources) Neuropathic pain; Translations: [Neuralgia and neuritis, unspecified] 11-03-2022 Episodic Other diseases of kidney and ureters (20 sources) Chronic renal insufficiency; Translations: [Disorder of kidney and ureter, unspecified] 02-24-2022 Episodic Other diseases of kidney and ureters (6 sources) Disorder of kidney and ureter, unspecified; Translations: [Unspecified disorder of kidney and ureter] Episodic Other diseases of veins and lymphatics (20 sources) Lymphedema of bilateral lower limbs; Translations: [Lymphedema, not elsewhere classified] 04-05-2022 Chronic Other diseases of veins and lymphatics (6 sources) Lymphedema, not elsewhere classified; Translations: [Other lymphedema] 04-05-2022 Chronic Other diseases of veins and lymphatics (20 sources) Venous stasis; Translations: [Other specified disorders of veins] 10-11-2022 Episodic Other diseases of veins and lymphatics (20 sources) Stasis dermatitis; Translations: [Venous insufficiency (chronic) (peripheral)] 10-11-2022 Episodic Other diseases of veins and lymphatics (12 sources) Other specified disorders of veins; Translations: [Venous (peripheral) insufficiency, unspecified] Onset: 10-11-2022 Episodic Other diseases of veins and lymphatics (7 sources) Venous insufficiency (chronic) (peripheral); Translations: [Varicose veins of lower extremities with inflammation] 10-11-2022 Episodic Other gastrointestinal disorders (20 sources) Dysphagia; Translations: [Dysphagia, unspecified] 05-01-2021 Episodic Other hematologic conditions (1 source) Personal history of diseases of the blood and blood-forming organs and certain disorders involving the immune mechanism; Translations: [Personal history of diseases of the blood and blood-forming organs and certain disorders involving the immune mechanism] Onset: Episodic Other hereditary and degenerative nervous system conditions (20 sources) Restless legs; Translations: [Restless legs syndrome] 02-27-2022 Chronic Other hereditary and degenerative nervous system conditions (15 sources) Restless legs syndrome; Translations: [Restless legs syndrome (RLS)] Chronic Other injuries and conditions due to external causes (20 sources) Aspiration into respiratory tract; Translations: [Unspecified foreign body in respiratory tract, part unspecified causing other injury, initial encounter] 02-24-2022 Episodic Other injuries and conditions due to external causes (20 sources) Injury of head; Translations: [Unspecified injury of head, initial encounter] 02-24-2022 Episodic Other injuries and conditions due to external causes (6 sources) Unspecified foreign body in respiratory tract, part unspecified causing other injury, initial encounter; Translations: [Foreign body in respiratory tree, unspecified] Episodic Other injuries and conditions due to external causes (6 sources) Unspecified injury of head, initial encounter; Translations: [Head injury, unspecified] Episodic Other injuries and conditions due to external causes (1 source) Unspecified injury of left hip, initial encounter; Translations: [Unspecified injury of left hip, initial encounter] Onset: Episodic Other lower respiratory disease (20 sources) History of aspiration pneumonia; Translations: [Personal history of pneumonia (recurrent)] 02-24-2022 Episodic Other lower respiratory disease (11 sources) Personal history of pneumonia (recurrent); Translations: [Personal history of pneumonia (recurrent)] Episodic Other lower respiratory disease (20 sources) Dyspnea; Translations: [Shortness of breath] 04-05-2022 Episodic Other lower respiratory disease (6 sources) Shortness of breath; Translations: [Shortness of breath] 04-05-2022 Episodic Other lower respiratory disease (8 sources) Hypoxemia; Translations: [Hypoxemia] 07-09-2023 Episodic Other lower respiratory disease (3 sources) Hypoxemia; Translations: [Hypoxemia] 07-09-2023 Episodic Other nervous system disorders (20 sources) Polyneuropathy; Translations: [Polyneuropathy, unspecified] 05-01-2021 Chronic Other nervous system disorders (20 sources) Polyneuropathy, unspecified; Translations: [Unspecified hereditary and idiopathic peripheral neuropathy] Onset: 5 Chronic Other nervous system disorders (20 sources) Unable to walk; Translations: [Difficulty in walking, not elsewhere classified] 02-24-2022 Chronic Other nervous system disorders (7 sources) Difficulty in walking, not elsewhere classified; Translations: [Difficulty in walking] Onset: 5 Chronic Other nervous system disorders (20 sources) Dysarthria; Translations: [Dysarthria and anarthria] 02-05-2021 Episodic Other non-traumatic joint disorders (20 sources) Shoulder pain; Translations: [Pain in left shoulder] 05-01-2021 Episodic Other non-traumatic joint disorders (20 sources) Pain in left shoulder; Translations: [Left shoulder pain] 05-01-2021 Episodic Other nutritional; endocrine; and metabolic disorders (20 sources) Hypomagnesemia; Translations: [Hypomagnesemia] 02-05-2021 Chronic Other nutritional; endocrine; and metabolic disorders (20 sources) H/O: diabetes mellitus; Translations: [Personal history of other endocrine, nutritional and metabolic disease] 02-24-2022 Episodic Other nutritional; endocrine; and metabolic disorders (11 sources) Personal history of other endocrine, nutritional and metabolic disease; Translations: [Personal history of other endocrine, metabolic, and immunity disorders] Episodic Other skin disorders (20 sources) Lesion of skin of face; Translations: [Disorder of the skin and subcutaneous tissue, unspecified] 05-01-2021 Episodic Paralysis (20 sources) Left hemiparesis; Translations: [Hemiplegia, unspecified affecting left nondominant side] Onset: 5 Chronic Fazuia-; endo-; and myocarditis; cardiomyopathy (except that caused by tuberculosis or sexually transmitted disease) (5 sources) Pericardial effusion; Translations: [Pericardial effusion] 08-12-2023 Episodic Peripheral and visceral atherosclerosis (20 sources) Renal artery stenosis; Translations: [Atherosclerosis of renal artery] Onset: 4 Chronic Pleurisy; pneumothorax; pulmonary collapse (20 sources) Pleural effusion; Translations: [Pleural effusion, not elsewhere classified] 04-05-2022 Episodic Pneumonia (except that caused by tuberculosis or sexually transmitted disease) (20 sources) Pneumonia; Translations: [Pneumonia, unspecified organism] 04-05-2022 Episodic Poisoning by other medications and drugs (20 sources) Accidental clonidine overdose; Translations: [Poisoning by other antihypertensive drugs, accidental (unintentional), initial encounter] Episodic Residual codes; unclassified (20 sources) Obstructive sleep apnea syndrome; Translations: [Obstructive sleep apnea (adult) (pediatric)] 04-05-2022 Chronic Residual codes; unclassified (20 sources) Obstructive sleep apnea (adult) (pediatric); Translations: [Obstructive sleep apnea (adult)(pediatric)] Onset: Chronic Residual codes; unclassified (20 sources) Swelling; Translations: [Edema, unspecified] 04-21-2021 Episodic Respiratory failure; insufficiency; arrest (adult) (20 sources) Acute respiratory failure; Translations: [Acute respiratory failure with hypoxia] Episodic Skin and subcutaneous tissue infections (20 sources) Cellulitis of toe; Translations: [Cellulitis of left toe] Episodic Spondylosis; intervertebral disc disorders; other back problems (20 sources) Chronic back pain ; Translations: [Dorsalgia, unspecified] Episodic Superficial injury; contusion (20 sources) Contusion of rib; Translations: [Contusion of left front wall of thorax, initial encounter] Episodic Syncope (20 sources) Near syncope; Translations: [Syncope and collapse] Episodic Viral infection (11 sources) Disease caused by 2019-nCoV; Translations: [COVID-19] 03-16-2024 Episodic Viral infection (1 source) COVID-19; Translations: [COVID-19] Onset: Past or Other Problems Problem Classification Problem Date Documented Date Episodic/Chronic Diabetes mellitus without complication (1 source) Hyperglycemia, unspecified; Translations: [Hyperglycemia, unspecified] Onset: 11-11-2023 Episodic E Codes: Fall (20 sources) Fall; Translations: [Unspecified fall, initial encounter] Onset: 12-20-2023 Episodic Fever of unknown origin (12 sources) Fever; Translations: [Fever, unspecified] Onset: 04-24-2024 10-28-2022 Episodic Fracture of neck of femur (hip) (13 sources) Fracture of unspecified part of neck of left femur, initial encounter for closed fracture; Translations: [Displaced fracture of neck of left femur] Onset: 12-20-2023 01-20-2024 Episodic Other aftercare (1 source) long-term (current) use of insulin; Translations: [manager long term care (current) use of insulin] Onset: 12-20-2023 Episodic Other aftercare (1 source) Other nursing home (current) drug therapy; Translations: [Other nursing home (current) drug therapy] Onset: 11-24-2023 Episodic Other circulatory disease (1 source) Personal history of other diseases of the circulatory system; Translations: [Personal history of other diseases of the circulatory system] Onset: 12-20-2023 Episodic Other connective tissue disease (6 sources) Neuralgia and neuritis, unspecified; Translations: [Neuralgia, neuritis, and radiculitis, unspecified] Onset: 12-20-2023 11-12-2022 Episodic Other screening for suspected conditions (not mental disorders or infectious disease) (20 sources) Serum creatinine raised; Translations: [Other specified abnormal findings of blood chemistry] Onset: 12-05-2023 Episodic Residual codes; unclassified (20 sources) Past history of procedure; Translations: [Other specified postprocedural states] Onset: 08-05-2021 08-13-2021 Episodic Urinary tract infections (11 sources) Urinary tract infectious disease; Translations: [Urinary tract infection, site not specified] Onset: 09-19-2023 09-07-2023 Episodic Results Test Name Value Interpretation Reference Range Facility Potassium measurement (mass/ volume)Ordered By: Costa Figueroa on 07-30-2024 Potassium (Unsp spec) [Mass/Vol] 3.4 mmol/L 3.3-5.1 [facility] ALP [Catalytic activity/Vol] Ordered By: Costa Figueroa on 07-03-2024 Serum or plasma alkaline phosphatase measurement 72 U/L 40-129 [facility] ALT [Catalytic activity/Vol] Ordered By: Costa Figueroa on 07-03-2024 Serum or plasma alanine aminotransferase (ALT) measurement 9 U/L <47 [facility] Albumin [Mass/Vol]Ordered By : Costa Figueroa on 07-03-2024 Serum or plasma albumin measurement (mass/volume) 3.9 g/dL 3.4-4.8 [facility] Albumin/Globulin [Mass ratio ]Ordered By: Costa Figueroa on 07-03-2024 Serum or plasma albumin/globulin mass ratio 1.2 RATIO 0.9-2.4 [facility] Anion gap [Moles/Vol]Ordered By: Costa Figueroa on 07-03-2024 Anion gap in Serum or Plasma 14 07-26 [facility] Anion gap in Serum or Plasma Ordered By: Costa Figueroa on 07-03-2024 Anion gap [Moles/Vol] 14 mmol/L 07-26 [facility] BUN/creatinine ratioOrdered By: Costa Figueroa on 07-03-2024 Urea nitrogen/Creatinine [Mass ratio] 15.3 mg/mg 12-31 [facility] BUN/creatinine ratio 15.3 RATIO 12-31 [facility] Bilirubin, totalOrdered By: Costa Figueroa on 07-03-2024 Bilirubin [Mass/Vol] 0.19 mg/dL 0.00-1.30 [facility] Bilirubin, total 0.19 mg/dL 0.00-1.30 [facility] Calcium [Mass/Vol]Ordered By : Costa Figueroa on 07-03-2024 Serum or plasma calcium measurement (mass/volume) 9.1 mg/dL 7.6-11.0 [facility] Calculated very low density lipoprotein (VLDL) cholesterol measurementOrdered By: Costa Figueroa on 07-03-2024 Calculated very low density lipoprotein (VLDL) cholesterol measurement 37 mg/dL [facility] Calculated very low density lipoprotein (VLDL) cholesterol measurement 37 mg/dL [facility] Carbon dioxide, total [Moles /volume] in Central venous bloodOrdered By: Costa Figueroa on 07-03-2024 CO2 [Moles/Vol] 30.7 mmol/L 21.0-32.0 [facility] Carbon dioxide, total [Moles/volume] in Central venous blood 30.7 mmol/L 21.0-32.0 [facility] Chloride assayOrdered By: Ra elida Fgiueroa on 07-03-2024 Chloride [Moles/Vol] 98 mmol/L 98-108 [facility] Chloride assay 98 mmol/L 98-108 [facility] Cholesterol [Mass/Vol]Ordere d By: Costa Figueroa on 07-03-2024 Serum or plasma cholesterol measurement (mass/volume) 164 mg/dL <201 [facility] Cholesterol in HDL [Mass/Vol ]Ordered By: Costa Figueroa on 07-03-2024 Serum or plasma cholesterol in HDL measurement (mass/volume) 34 mg/dL Low >40 [facility] Creatinine [Mass/Vol]Ordered By: Costa Figueroa on 07-03-2024 Serum creatinine measurement (mass/volume) 1.56 mg/dL High 0.70-1.20 [facility] Erythrocyte distribution wid th (RBC) [Ratio]Ordered By: Costa Figueroa on 07-03-2024 Erythrocyte distribution width ratio 15.6 % High 11.6-14.6 [facility] Erythrocyte distribution width standard deviation 52.0 fl High 35.1-43.9 [facility] Erythrocyte distribution wid th ratioOrdered By: Costa Figueroa on 07-03-2024 Erythrocyte distribution width (RBC) [Ratio] 15.6 % High 11.6-14.6 [facility] Erythrocyte distribution wid th standard deviationOrdered By: Costahannah Figueroa on 07-03-2024 Erythrocyte distribution width (RBC) [Ratio] 52.0 fl High 35.1-43.9 [facility] Ferritin [Mass/Vol]Ordered B y: Costa Figueroa on 07-03-2024 Serum or plasma ferritin measurement (mass/volume) 448 ng/mL High 37-417 [facility] GFR/1.73 sq M.predicted shayy g non-blacks MDRD (S/P/Bld) [Vol rate/Area]Ordered By: Costa Figueroa 07-03-2024 Glomerular filtration rate (GFR) estimation/1.73 sq m using serum, plasma, or whole b 44 Low >60 [facility] Glomerular filtration rate ( GFR) estimation/1.73 sq m using serum, plasma, or whole bOrdered By: Costa Figueroa 07-03-2024 GFR/1.73 sq M.predicted among non-blacks MDRD (S/P/Bld) [Vol rate/Area] 44 mL/min/{1.73_m2} Low >60 [facility] Glucose [Mass/Vol]Ordered By : Costa Figueroa on 07-03-2024 Serum glucose measurement (mass/volume) 169 mg/dL High 70-99 [facility] HbA1c (Bld) [Mass fraction]O rdered By: Costa Figueroa on 07-03-2024 Hemoglobin A1c percentage 6.7 % High <5.7 [facility] Hematocrit Auto (Bld) [Volum e fraction]Ordered By: Costa Figueroa on 07-03-2024 Hematocrit (Bld) [Volume fraction] 38.2 % Low 40-54 [facility] Automated blood hematocrit (percentage) 38.2 % Low 40-54 [facility] Hemoglobin A1c percentageOrd ered By: Costa Figueroa on 07-03-2024 HbA1c (Bld) [Mass fraction] 6.7 % High <5.7 [facility] Hemoglobin measurementOrdere d By: Costa Figueroa on 07-03-2024 Hemoglobin (Bld) [Mass/Vol] 12.9 g/dL Low 13.0-16.5 [facility] Hemoglobin measurement 12.9 g/dL Low 13.0-16.5 [facility] Iron (Unsp spec) [Mass/Mass] Ordered By: Costa Figueroa on 07-03-2024 Iron measurement (mass/mass) 40 ug/dL Low 65-175 [facility] Iron measurement (mass/mass) Ordered By: Costa Figueroa on 07-03-2024 Iron (Unsp spec) [Mass/Mass] 40 ug/dL Low 65-175 [facility] LDL calc ser/plasOrdered By: Costa Figueroa on 07-03-2024 Cholesterol in LDL [Mass/Vol] 93 mg/dL [facility] LDL calc ser/plas 93 mg/dL [facility] MCV (RBC) [Entitic vol]Order ed By: Costa Figueroa on 07-03-2024 MCV (mean corpuscular volume) determination 89.9 fL 80-94 [facility] MCV (mean corpuscular volume ) determinationOrdered By: Costa Figueroa on 04-22-2025 MCV (RBC) [Entitic vol] 89.9 fL 80-94 [facility] Magnesium (Unsp spec) [Mass/ Vol]Ordered By: Costa Figueroa on 07-03-2024 Magnesium measurement (mass/volume) 1.9 mg/dL 1.5-2.2 [facility] Magnesium measurement (mass/ volume)Ordered By: Costa Figueroa on 07-03-2024 Magnesium (Unsp spec) [Mass/Vol] 1.9 mg/dL 1.5-2.2 [facility] Mean corpuscular hemoglobin (MCH) determinationOrdered By: Costa Figueroa on 07-03-2024 MCH (RBC) [Entitic mass] 30.4 pg 27.0-32.0 [facility] Mean corpuscular hemoglobin (MCH) determination 30.4 pg 27.0-32.0 [facility] Mean corpuscular hemoglobin concentration (MCHC) determinationOrdered By: Costa Figueroa on 07-03-2024 Mean corpuscular hemoglobin concentration (MCHC) determination 33.8 g/dL 32-36 [facility] Mean platelet volume determi nationOrdered By: Costa Figueroa on 07-03-2024 Mean platelet volume determination 10.9 fl 6.2-12.0 [facility] No Panel InformationOrdered By: Costa Figueroa on 07-03-2024 15 U/L <38 [facility] PSA, total screeningOrdered By: Costa Figueroa on 07-03-2024 PSA, total screening 1.57 ng/mL 0.02-4.00 [facility] Platelet countOrdered By: Ra elida Figueroa on 07-03-2024 Platelets (Bld) [#/Vol] 286 10*3/uL 150-450 [facility] Platelet count 286 K/mm3 150-450 [facility] Potassium (Unsp spec) [Mass/ Vol]Ordered By: Costa Figueroa on 07-03-2024 Potassium measurement (mass/volume) 3.1 mmol/L Low 3.3-5.1 [facility] Potassium measurement (mass/ volume)Ordered By: Costa Figueroa on 07-03-2024 Potassium (Unsp spec) [Mass/Vol] 3.1 mmol/L Low 3.3-5.1 [facility] RBC Auto (Bld) [#/Vol]Ordere d By: Costa Figueroa on 07-03-2024 RBC (Bld) [#/Vol] 4.25 10*6/uL Low 4.6-6.2 [facility] Automated blood erythrocyte count 4.25 M/mm3 Low 4.6-6.2 [facility] Screening total cholesterol/ high density lipoprotein (HDL) cholesterol ratioOrdered By: Costa Figueroa on 07-03-2024 Screening total cholesterol/high density lipoprotein (HDL) cholesterol ratio 4.80 [facility] Serum creatinine measurement (mass/volume)Ordered By: Costa Figueroa on 07-03-2024 Creatinine [Mass/Vol] 1.56 mg/dL High 0.70-1.20 [facility] Serum globulin measurementOr dered By: Costa Figueroa on 07-03-2024 Globulin (S) [Mass/Vol] 3.2 g/dL 2.2-4.2 [facility] Serum globulin measurement 3.2 g/dL 2.2-4.2 [facility] Serum glucose measurement (m ass/volume)Ordered By: Costa Figueroa 07-03-2024 Glucose [Mass/Vol] 169 mg/dL High 70-99 [facility] Serum or plasma alanine bazan otransferase (ALT) measurementOrdered By: Costa Figueroa 07-03-2024 ALT [Catalytic activity/Vol] 9 U/L <47 [facility] Serum or plasma albumin shayan urement (mass/volume)Ordered By: Costa Figueroa 07-03-2024 Albumin [Mass/Vol] 3.9 g/dL 3.4-4.8 [facility] Serum or plasma albumin/glob ulin mass ratioOrdered By: Costa Figueroa 07-03-2024 Albumin/Globulin [Mass ratio] 1.2 {ratio} 0.9-2.4 [facility] Serum or plasma alkaline emma sphatase measurementOrdered By: Costa Figueroa 07-03-2024 ALP [Catalytic activity/Vol] 72 U/L 40-129 [facility] Serum or plasma calcium shayan urement (mass/volume)Ordered By: Costa Figueroa on 07-03-2024 Calcium [Mass/Vol] 9.1 mg/dL 7.6-11.0 [facility] Serum or plasma cholesterol in HDL measurement (mass/volume)Ordered By: Costa Figueroa on 07-03-2024 Cholesterol in HDL [Mass/Vol] 34 mg/dL Low >40 [facility] Serum or plasma cholesterol measurement (mass/volume)Ordered By: oCsta Figueroa on 07-03-2024 Cholesterol [Mass/Vol] 164 mg/dL <201 [facility] Serum or plasma ferritin genaro surement (mass/volume)Ordered By: Costa Figueroa on 07-03-2024 Ferritin [Mass/Vol] 448 ng/mL High 37-417 [facility] Serum or plasma urea nitroge n measurement (mass/volume)Ordered By: Costa Figueroa on 07-03-2024 Urea nitrogen [Mass/Vol] 24 mg/dL High 06-30 [facility] Sodium levelOrdered By: Yulissa Figueroa on 07-03-2024 Sodium [Moles/Vol] 143 mmol/L 133-145 [facility] Sodium level 143 mmol/L 133-145 [facility] Total proteinOrdered By: Jaciel Figueroa on 07-03-2024 Protein [Mass/Vol] 7.1 g/dL 5.9-8.4 [facility] Total protein 7.1 g/dL 5.9-8.4 [facility] Triglycerides measurementOrd ered By: Costa Figueroa on 07-03-2024 Triglycerides measurement 184 mg/dL <199 [facility] Urea nitrogen [Mass/Vol]Orde red By: Costa Figueroa on 07-03-2024 Serum or plasma urea nitrogen measurement (mass/volume) 24 mg/dL High - [facility] White blood cell (WBC) count Ordered By: Costa Figueroa on 07-03-2024 WBC (Bld) [#/Vol] 8.0 10*3/uL 4.4-11.0 [facility] White blood cell (WBC) count 8.0 K/mm3 4.4-11.0 [facility] By: Edwin Nieto on 05-22-2024 Glucose [Mass/Vol] 239 mg/dL High 74-106 [facility] Glucose measurement at bedside 239 mg/dL High 74-106 [facility] [id number] DOrdered By: Naya Watt on 03-29-2024 [id number] D 51.1 ng/mL [facility] ALP [Catalytic activity/Vol] Ordered By: Jennifer Watt on 03-29-2024 Serum or plasma alkaline phosphatase measurement 77 U/L 45-117 [facility] ALT [Catalytic activity/Vol] Ordered By: Jennifer Watt on 03-29-2024 Serum or plasma alanine aminotransferase (ALT) measurement 11 U/L Low 16-61 [facility] Absolute neutrophil countOrd ered By: Jennifer Watt on 03-29-2024 Absolute neutrophil count 11.0 X10^3/uL High 2.0-7.7 [facility] Albumin [Mass/Vol]Ordered By : Jennifer Watt on 03-29-2024 Serum or plasma albumin measurement (mass/volume) 2.7 g/dL Low 3.2-5.0 [facility] Albumin to globulin ratioOrd ered By: Jennifer Watt on 03-29-2024 Albumin to globulin ratio 0.6 RATIO Low 0.9-2.4 [facility] Basophil percentageOrdered B y: Jennifer Watt on 03-29-2024 Basophil percentage 0.6 % 0-1 [facility] Bilirubin, totalOrdered By: Jennifer Watt on 03-29-2024 Bilirubin, total 0.30 mg/dL 0.20-1.00 [facility] Blood urea nitrogen (BUN)/cr eatinine ratioOrdered By: Jennifer Watt on 03-29-2024 Blood urea nitrogen (BUN)/creatinine ratio 27.3 RATIO High 10-20 [facility] Calcium [Mass/Vol]Ordered By : Jennifer Watt on 03-29-2024 Serum or plasma calcium measurement (mass/volume) 9.2 mg/dL 8.5-10.1 [facility] Calcium oxalate crystals LM Ql (Urine sed)Ordered By: Jennifer Watt on 03-29-2024 Calcium oxalate crystals detection in urine sediment by light microscopy 1+ /hpf [facility] Carbon dioxide measurementOr dered By: Jennifer Watt on 03-29-2024 Carbon dioxide measurement 31.0 mmol/L 21.0-32.0 [facility] Chloride measurementOrdered By: Jennifer Watt on 03-29-2024 Chloride measurement 99 mmol/L 98-107 [facility] Cholesterol [Mass/Vol]Ordere d By: Jennifer Watt on 03-29-2024 Serum or plasma cholesterol measurement (mass/volume) 150 mg/dL <200 [facility] Clarity (U)Ordered By: Jennifer Watt on 03-29-2024 Urine clarity Clear Clear [facility] Color (U)Ordered By: Jennifer turcios on 03-29-2024 Urine color determination Yellow Yellow [facility] Creatinine [Mass/Vol]Ordered By: Jennifer Watt on 03-29-2024 Serum or plasma creatinine measurement (mass/volume) 1.50 mg/dL High 0.70-1.30 [facility] Direct serum free thyroxine (FT4) measurementOrdered By: Jennifer Watt on 03-29-2024 Direct serum free thyroxine (FT4) measurement 1.17 ng/dL 0.76-1.46 [facility] Eosinophil percentageOrdered By: Jennifer Watt on 03-29-2024 Eosinophil percentage 3.2 % 0-5 [facility] Erythrocyte distribution wid th (RBC) [Ratio]Ordered By: Jennifer Watt on 03-29-2024 Erythrocyte distribution width ratio 14.7 % High 11.6-14.6 [facility] Erythrocyte distribution wid th standard deviationOrdered By: Jennifer Watt on 03-29-2024 Erythrocyte distribution width standard deviation 48.7 fl High 35.1-43.9 [facility] Estimated glomerular filtrat ion rate (GFR) AmericanOrdered By: Jennifer Watt on 03-29-2024 Estimated glomerular filtration rate (GFR) 57 mL/min Low >60 [facility] Free [id number] By: Jennifer boston on 03-29-2024 Free T3 1.3 pg/mL Low 2.18-3.98 [facility] Glomerular filtration rate ( GFR) estimationOrdered By: Jennifer Watt on 03-29-2024 Glomerular filtration rate (GFR) estimation 47 mL/min Low >60 [facility] Glucose measurementOrdered B y: Jennifer Watt on 03-29-2024 Glucose measurement 225 mg/dL High 74-106 [facility] HbA1c (Bld) [Mass fraction]O rdered By: Jennifer Watt on 03-29-2024 Hemoglobin A1c percentage 8.8 % High 3.8-5.6 [facility] Hematocrit Auto (Bld) [Volum e fraction]Ordered By: Jennifer Watt on 03-29-2024 Automated blood hematocrit (percentage) 32.6 % Low 40-54 [facility] Hemoglobin measurementOrdere d By: Jennifer Watt on 03-29-2024 Hemoglobin measurement 10.6 g/dL Low 13.0-16.5 [facility] High density lipoprotein (HD L) measurementOrdered By: Jennifer Watt on 03-29-2024 High density lipoprotein (HDL) measurement 45 mg/dL >40 [facility] Immature granulocytes/100 WB C Auto (Bld)Ordered By: Jennifer Watt on 03-29-2024 Automated immature granulocyte percentage 0.200 % 0.0-0.9 [facility] Low density lipoprotein (LDL ) cholesterol measurementOrdered By: Jennifer Watt on 03-29-2024 Low density lipoprotein (LDL) cholesterol measurement 82 mg/dL 0-130 [facility] Lymphocytes Auto (Unsp spec) [#/Vol]Ordered By: Jennifer Watt on 03-29-2024 Absolute lymphocyte count 1.23 X10^3/uL 0.83-4. 51 [facility] Lymphocytes/100 WBC Auto (Un sp spec)Ordered By: Jennifer Watt on 03-29-2024 Automated lymphocyte count as percentage of total leukocytes 8.9 % Low 19-41 [facility] MCV (RBC) [Entitic vol]Order ed By: Jennifer Watt on 03-29-2024 MCV (mean corpuscular volume) determination 90.8 fL 80-94 [facility] Magnesium measurementOrdered By: Jennifer Watt on 03-29-2024 Magnesium measurement 2.0 mg/dL 1.6-2.6 [facility] Mean corpuscular hemoglobin (MCH) determinationOrdered By: Jennifer Watt on 03-29-2024 Mean corpuscular hemoglobin (MCH) determination 29.5 pg 27.0-32.0 [facility] Mean corpuscular hemoglobin concentration (MCHC) determinationOrdered By: Jennifer Watt on 03-29-2024 Mean corpuscular hemoglobin concentration (MCHC) determination 32.5 g/dL 32-36 [facility] Mean platelet volume determi nationOrdered By: Jennifer Watt on 03-29-2024 Mean platelet volume determination 10.4 fl 6.2-12.0 [facility] Microscopic analysis of urin e for red blood cells (RBC)Ordered By: Jennifer Watt on 03-29-2024 Microscopic analysis of urine for red blood cells (RBC) 0-5 SEEN /hpf 0-5 [facility] Monocyte percentageOrdered B y: Jennifer Watt on 03-29-2024 Monocyte percentage 7.0 % 0-10 [facility] Neutrophil percentageOrdered By: Jennifer Watt on 03-29-2024 Neutrophil percentage 80.1 % High 47-70 [facility] No Panel InformationOrdered By: Jennifer Watt on 03-29-2024 7 U/L Low 15-37 [facility] Nucleated red blood cell per centageOrdered By: Jennifer Watt on 03-29-2024 Nucleated red blood cell percentage 0 % 0-5 [facility] Platelet countOrdered By: Cece Watt on 03-29-2024 Platelet count 255 K/mm3 150-450 [facility] Potassium measurementOrdered By: Jennifer Watt on 03-29-2024 Potassium measurement 3.2 mmol/L Low 3.5-5.1 [facility] Protein Test strip Ql (U)Ord ered By: Jennifer Watt on 03-29-2024 Urine protein assay by test strip, semi-quantitative 30 mg/dl High Negative [facility] RBC Auto (Bld) [#/Vol]Ordere d By: Jennifer Watt on 03-29-2024 Automated blood erythrocyte count 3.59 M/mm3 Low 4.6-6.2 [facility] Serum anion gap measurementO rdered By: Jennifer Watt on 03-29-2024 Serum anion gap measurement 7 5-15 [facility] Serum globulin measurementOr dered By: Jennifer Watt on 03-29-2024 Serum globulin measurement 4.5 g/dL High 2.2-4.2 [facility] Sodium levelOrdered By: Dee Watt on 03-29-2024 Sodium level 137 mmol/L 136-145 [facility] Specific gravity (U) [Rel de nsity]Ordered By: Jennifer Watt on 03-29-2024 Urine specific gravity measurement 1.010 1.002-1.030 [facility] TSH QnOrdered By: Jennifer velázquezr on 03-29-2024 Serum or plasma thyroid stimulating hormone (TSH) measurement (units/volume) 1.100 uIU/mL 0.358-3.740 [facility] Total proteinOrdered By: Sharyn Watt on 03-29-2024 Total protein 7.2 g/dL 6.4-8.2 [facility] Triglycerides measurementOrd ered By: Jennifer Watt on 03-29-2024 Triglycerides measurement 116 mg/dL <199 [facility] Urea nitrogen [Mass/Vol]Orde red By: Jennifer Watt on 03-29-2024 Serum or plasma urea nitrogen measurement (mass/volume) 41 mg/dL High 7-18 [facility] Urine glucose detectionOrder ed By: Jennifer Watt on 03-29-2024 Urine glucose detection Normal mg/dl Normal [facility] Urine total bilirubin detect ion by test stripOrdered By: Jennifer Watt on 03-29-2024 Urine total bilirubin detection by test strip Negative Negative [facility] Very low density lipoprotein (VLDL) cholesterol measurementOrdered By: Jennifer Watt on 03-29-2024 Very low density lipoprotein (VLDL) cholesterol measurement 23 mg/dL 5-40 [facility] Vitamin B12 measurementOrder ed By: Jennifer Watt on 03-29-2024 Vitamin B12 measurement 975 pg/mL High 211-911 [facility] White blood cell (WBC) count Ordered By: Jennifer Watt on 03-29-2024 White blood cell (WBC) count 13.8 K/mm3 High 4.4-11.0 [facility] White blood cell countOrdere d By: Jennifer Watt on 03-29-2024 White blood cell count 0 SEEN /hpf [facility] pH (U)Ordered By: Jennifer Kraus hner on 03-29-2024 Urine pH 6.0 5.0 - 8.0 [facility] ALP [Catalytic activity/Vol] Ordered By: Miguel Siu on 03-09-2024 Serum or plasma alkaline phosphatase measurement 72 U/L 45-117 [facility] ALT [Catalytic activity/Vol] Ordered By: Miguel Siu on 03-09-2024 Serum or plasma alanine aminotransferase (ALT) measurement 19 U/L 16-61 [facility] Absolute neutrophil countOrd ered By: Miguel Siu on 03-09-2024 Absolute neutrophil count 16.6 X10^3/uL High 2.0-7.7 [facility] Albumin [Mass/Vol]Ordered By : Miguel Siu on 03-09-2024 Serum or plasma albumin measurement (mass/volume) 2.4 g/dL Low 3.2-5.0 [facility] Albumin to globulin ratioOrd ered By: Miguel Siu on 03-09-2024 Albumin to globulin ratio 0.6 RATIO Low 0.9-2.4 [facility] Bacteria LM.HPF (Urine sed) [#/Area]Ordered By: Miguel Siu on 03-09-2024 Urine sediment bacteria count by microscopy (number/high power field) 3+ /hpf None Seen [facility] Basophil percentageOrdered B y: Miguel Siu on 03-09-2024 Basophil percentage 0.3 % 0-1 [facility] Bilirubin, totalOrdered By: Miguel Siu on 03-09-2024 Bilirubin, total 0.50 mg/dL 0.20-1.00 [facility] Blood cultureOrdered By: Domenic Siu on 03-09-2024 Blood culture No growth in 5 days. [facility] Blood urea nitrogen (BUN)/cr eatinine ratioOrdered By: Miguel Siu on 03-09-2024 Blood urea nitrogen (BUN)/creatinine ratio 21.5 RATIO High 10-20 [facility] Calcium [Mass/Vol]Ordered By : Miguel Siu on 03-09-2024 Serum or plasma calcium measurement (mass/volume) 8.4 mg/dL Low 8.5-10.1 [facility] Carbon dioxide measurementOr dered By: Miguel Siu on 03-09-2024 Carbon dioxide measurement 32.0 mmol/L 21.0-32.0 [facility] Chloride measurementOrdered By: Miguel Siu on 03-09-2024 Chloride measurement 101 mmol/L 98-107 [facility] Clarity (U)Ordered By: Miguel Siu on 03-09-2024 Urine clarity Sl. Cloudy Clear [facility] Color (U)Ordered By: Miguel oliver on 03-09-2024 Urine color determination Yellow Yellow [facility] Creatinine [Mass/Vol]Ordered By: Miguel Siu on 03-09-2024 Serum or plasma creatinine measurement (mass/volume) 1.72 mg/dL High 0.70-1.30 [facility] Eosinophil percentageOrdered By: Miguel Siu on 03-09-2024 Eosinophil percentage 0.2 % 0-5 [facility] Erythrocyte distribution wid th (RBC) [Ratio]Ordered By: Miguel Siu on 03-09-2024 Erythrocyte distribution width ratio 14.4 % 11.6-14.6 [facility] Erythrocyte distribution wid th standard deviationOrdered By: Miguel Siu on 03-09-2024 Erythrocyte distribution width standard deviation 48.0 fl High 35.1-43.9 [facility] Estimated glomerular filtrat ion rate (GFR) AmericanOrdered By: Miguel Siu on 03-09-2024 Estimated glomerular filtration rate (GFR) 49 mL/min Low >60 [facility] Estimation of creatinine giovanny aranceOrdered By: Miguel Siu on 03-09-2024 Estimation of creatinine clearance 35.09 ml/min [facility] Glomerular filtration rate ( GFR) estimationOrdered By: Miguel Siu on 03-09-2024 Glomerular filtration rate (GFR) estimation 40 mL/min Low >60 [facility] Glucose measurementOrdered B y: Miguel Siu on 03-09-2024 Glucose measurement 103 mg/dL 74-106 [facility] Hematocrit Auto (Bld) [Volum e fraction]Ordered By: Miguel Siu on 03-09-2024 Automated blood hematocrit (percentage) 31.5 % Low 40-54 [facility] Hemoglobin measurementOrdere d By: Miguel Siu on 03-09-2024 Hemoglobin measurement 10.4 g/dL Low 13.0-16.5 [facility] Immature granulocytes/100 WB C Auto (Bld)Ordered By: Miguel Siu on 03-09-2024 Automated immature granulocyte percentage 1.800 % High 0.0-0.9 [facility] Influenza virus A and B and SARS-CoV-2 (COVID-19) and Respiratory syncytial virus RNAOrdered By: Miguel Siu on 03-09-2024 Influenza virus A and B and SARS-CoV-2 (COVID-19) and Respiratory syncytial virus RNA SARS-CoV-2 (COVID 19 PCR) Abnormal [facility] International normalized rat io (INR) calculationOrdered By: Miguel Siu on 03-09-2024 International normalized ratio (INR) calculation 1.0 [facility] Lactic acid measurementOrder ed By: Miguel Siu on 03-09-2024 Lactic acid measurement 0.8 mmol/L 0.4-2.0 [facility] Leukocyte esterase Test stri p Ql (U)Ordered By: Miguel Siu on 03-09-2024 Urine leukocyte esterase detection by dipstick 500 /ul High Negative [facility] Lymphocytes Auto (Unsp spec) [#/Vol]Ordered By: Miguel Siu on 03-09-2024 Absolute lymphocyte count 1.34 X10^3/uL 0.83-4. 51 [facility] Lymphocytes/100 WBC Auto (Un sp spec)Ordered By: Miguel Siu on 03-09-2024 Automated lymphocyte count as percentage of total leukocytes 7.0 % Low 19-41 [facility] MCV (RBC) [Entitic vol]Order ed By: Miguel Siu on 03-09-2024 MCV (mean corpuscular volume) determination 91.6 fL 80-94 [facility] Mean corpuscular hemoglobin (MCH) determinationOrdered By: Miguel Siu on 03-09-2024 Mean corpuscular hemoglobin (MCH) determination 30.2 pg 27.0-32.0 [facility] Mean corpuscular hemoglobin concentration (MCHC) determinationOrdered By: Miguel Siu on 03-09-2024 Mean corpuscular hemoglobin concentration (MCHC) determination 33.0 g/dL 32-36 [facility] Mean platelet volume determi nationOrdered By: Miguel Siu on 03-09-2024 Mean platelet volume determination 10.8 fl 6.2-12.0 [facility] Microscopic analysis of urin e for red blood cells (RBC)Ordered By: Miguel Siu on 03-09-2024 Microscopic analysis of urine for red blood cells (RBC) 0 SEEN /hpf [facility] Monocyte percentageOrdered B y: Miguel Siu on 03-09-2024 Monocyte percentage 4.6 % 0-10 [facility] Neutrophil percentageOrdered By: Miguel Siu on 03-09-2024 Neutrophil percentage 86.1 % High 47-70 [facility] No Panel InformationOrdered By: Miguel Siu on 03-09-2024 20 U/L 15-37 [facility] Nucleated red blood cell per centageOrdered By: Miguel Siu on 03-09-2024 Nucleated red blood cell percentage 0 % 0-5 [facility] Platelet countOrdered By: Georges Siu on 03-09-2024 Platelet count 312 K/mm3 150-450 [facility] Potassium measurementOrdered By: Miguel Siu on 03-09-2024 Potassium measurement 3.5 mmol/L 3.5-5.1 [facility] Protein Test strip Ql (U)Ord ered By: Miguel Siu on 03-09-2024 Urine protein assay by test strip, semi-quantitative 100 mg/dl High Negative [facility] Prothrombin timeOrdered By: Miguel Siu on 03-09-2024 Prothrombin time 13.5 SECONDS 11.7-14.9 [facility] RBC Auto (Bld) [#/Vol]Ordere d By: Miguel Siu on 03-09-2024 Automated blood erythrocyte count 3.44 M/mm3 Low 4.6-6.2 [facility] Serum anion gap measurementO rdered By: Miguel Siu on 03-09-2024 Serum anion gap measurement 4 Low 5-15 [facility] Serum globulin measurementOr dered By: Miguel Siu on 03-09-2024 Serum globulin measurement 3.9 g/dL 2.2-4.2 [facility] Sodium levelOrdered By: Miguel Siu on 03-09-2024 Sodium level 137 mmol/L 136-145 [facility] Specific gravity (U) [Rel de nsity]Ordered By: Miguel Siu on 03-09-2024 Urine specific gravity measurement 1.010 1.002-1.030 [facility] Total proteinOrdered By: Domenic Siu on 03-09-2024 Total protein 6.3 g/dL Low 6.4-8.2 [facility] Urea nitrogen [Mass/Vol]Orde red By: Miguel Siu on 03-09-2024 Serum or plasma urea nitrogen measurement (mass/volume) 37 mg/dL High 7-18 [facility] Urine blood detectionOrdered By: Miguel Siu on 03-09-2024 Urine blood detection 50 /ul High Negative [facility] Urine cultureOrdered By: Domenic Siu on 03-09-2024 Urine culture Presumptive E. coli Abnormal [facility] Urine glucose detectionOrder ed By: Miguel Siu on 03-09-2024 Urine glucose detection Normal mg/dl Normal [facility] Urine total bilirubin detect ion by test stripOrdered By: Miguel Siu on 03-09-2024 Urine total bilirubin detection by test strip Negative Negative [facility] White blood cell (WBC) count Ordered By: Miguel Siu on 03-09-2024 White blood cell (WBC) count 19.3 K/mm3 High 4.4-11.0 [facility] White blood cell countOrdere d By: Miguel Siu on 03-09-2024 White blood cell count 5-10 SEEN /hpf 0-5 [facility] aPTT Coag (PPP) [Time]Ordere d By: Miguel Siu on 03-09-2024 Activated partial thromboplastin time (aPTT) in platelet poor plasma by coagulation a 33.0 Seconds 24.1-36.2 [facility] pH (U)Ordered By: Miguel swanson on 03-09-2024 Urine pH 6.0 5.0 - 8.0 [facility] ALP [Catalytic activity/Vol] Ordered By: Johana Archuleta on 03-08-2024 Serum or plasma alkaline phosphatase measurement 65 U/L 45-117 [facility] ALT [Catalytic activity/Vol] Ordered By: Johana Archuleta on 03-08-2024 Serum or plasma alanine aminotransferase (ALT) measurement 18 U/L 16-61 [facility] Absolute neutrophil countOrd ered By: Johana Archuleta on 03-08-2024 Absolute neutrophil count 8.3 X10^3/uL High 2.0-7.7 [facility] Albumin [Mass/Vol]Ordered By : Johana Archuleta on 03-08-2024 Serum or plasma albumin measurement (mass/volume) 2.5 g/dL Low 3.2-5.0 [facility] Albumin to globulin ratioOrd ered By: Johana Geremias on 03-08-2024 Albumin to globulin ratio 0.7 RATIO Low 0.9-2.4 [facility] Basophil percentageOrdered B y: Johana Geremias on 03-08-2024 Basophil percentage 0.2 % 0-1 [facility] Bilirubin, totalOrdered By: Johana Geremias on 03-08-2024 Bilirubin, total 0.30 mg/dL 0.20-1.00 [facility] Blood urea nitrogen (BUN)/cr eatinine ratioOrdered By: Johana Geremias on 03-08-2024 Blood urea nitrogen (BUN)/creatinine ratio 25.6 RATIO High 10-20 [facility] Calcium [Mass/Vol]Ordered By : Johana Geremias on 03-08-2024 Serum or plasma calcium measurement (mass/volume) 8.5 mg/dL 8.5-10.1 [facility] Carbon dioxide measurementOr dered By: Johana Geremias on 03-08-2024 Carbon dioxide measurement 30.0 mmol/L 21.0-32.0 [facility] Chloride measurementOrdered By: Johana Geremias on 03-08-2024 Chloride measurement 102 mmol/L 98-107 [facility] Creatinine [Mass/Vol]Ordered By: Johana Geremias on 03-08-2024 Serum or plasma creatinine measurement (mass/volume) 1.56 mg/dL High 0.70-1.30 [facility] Eosinophil percentageOrdered By: Johana Geremias on 03-08-2024 Eosinophil percentage 2.1 % 0-5 [facility] Erythrocyte distribution wid th (RBC) [Entitic vol]Ordered By: [facility] Geremias on 03-08-2024 Erythrocyte distribution width standard deviation 48.4 fl High 35.1-43.9 [facility] Erythrocyte distribution wid th (RBC) [Ratio]Ordered By: Johana Geremias on 03-08-2024 Erythrocyte distribution width ratio 14.2 % 11.6-14.6 [facility] Estimated glomerular filtrat ion rate (GFR) AmericanOrdered By: Johana Archuleta on 03-08-2024 Estimated glomerular filtration rate (GFR) 55 mL/min Low >60 [facility] Estimation of creatinine giovanny aranceOrdered By: Johana Archuleta on 03-08-2024 Estimation of creatinine clearance 38.69 ml/min [facility] Glomerular filtration rate ( GFR) estimationOrdered By: Johana Geremias on 03-08-2024 Glomerular filtration rate (GFR) estimation 45 mL/min Low >60 [facility] Glucose measurementOrdered B y: Johana Archuleta on 03-08-2024 Glucose measurement 68 mg/dL Low 74-106 [facility] Glucose measurement at bedsi deOrdered By: Johana Geremias on 03-08-2024 Glucose measurement at bedside 257 mg/dL High 74-106 [facility] Hematocrit Auto (Bld) [Volum e fraction]Ordered By: Johana Archuleta on 03-08-2024 Automated blood hematocrit (percentage) 30.8 % Low 40-54 [facility] Hemoglobin measurementOrdere d By: Johana Archuleta on 03-08-2024 Hemoglobin measurement 9.9 g/dL Low 13.0-16.5 [facility] Immature granulocytes/100 WB C Auto (Bld)Ordered By: Johana Archuleta on 03-08-2024 Automated immature granulocyte percentage 0.800 % 0.0-0.9 [facility] Lymphocytes Auto (Unsp spec) [#/Vol]Ordered By: Johana Archuleta 03-08-2024 Absolute lymphocyte count 1.30 X10^3/uL 0.83-4. 51 [facility] Lymphocytes/100 WBC Auto (Un sp spec)Ordered By: Johana Archuleta 03-08-2024 Automated lymphocyte count as percentage of total leukocytes 12.1 % Low 19-41 [facility] MCV (RBC) [Entitic vol]Order ed By: Johana Archuleta on 03-08-2024 MCV (mean corpuscular volume) determination 92.5 fL 80-94 [facility] Mean corpuscular hemoglobin (MCH) determinationOrdered By: Johana Archuleta 03-08-2024 Mean corpuscular hemoglobin (MCH) determination 29.7 pg 27.0-32.0 [facility] Mean corpuscular hemoglobin concentration (MCHC) determinationOrdered By: Johana Archuleta 03-08-2024 Mean corpuscular hemoglobin concentration (MCHC) determination 32.1 g/dL 32-36 [facility] Mean platelet volume determi nationOrdered By: Johana Geremias on 03-08-2024 Mean platelet volume determination 10.4 fl 6.2-12.0 [facility] Monocyte percentageOrdered B y: White on 03-08-2024 Monocyte percentage 7.5 % 0-10 [facility] Neutrophil percentageOrdered By: White on 03-08-2024 Neutrophil percentage 77.3 % High 47-70 [facility] No Panel InformationOrdered By: Johana Geremias on 03-08-2024 19 U/L 15-37 [facility] Nucleated red blood cell per centageOrdered By: Geremias on 03-08-2024 Nucleated red blood cell percentage 0 % 0-5 [facility] Platelet countOrdered By: Marci Archuleta on 03-08-2024 Platelet count 269 K/mm3 150-450 [facility] Potassium measurementOrdered By: Johana Geremias on 03-08-2024 Potassium measurement 3.5 mmol/L 3.5-5.1 [facility] RBC Auto (Bld) [#/Vol]Ordere d By: Johana Archuleta on 03-08-2024 Automated blood erythrocyte count 3.33 M/mm3 Low 4.6-6.2 [facility] Serum anion gap measurementO rdered By: Johana Archuleta on 03-08-2024 Serum anion gap measurement 5 5-15 [facility] Serum globulin measurementOr dered By: Johana Geremias on 03-08-2024 Serum globulin measurement 3.7 g/dL 2.2-4.2 [facility] Sodium levelOrdered By: Regulou mn Geremias on 03-08-2024 Sodium level 137 mmol/L 136-145 [facility] Total proteinOrdered By: Regulo umn Geremias on 03-08-2024 Total protein 6.2 g/dL Low 6.4-8.2 [facility] Urea nitrogen [Mass/Vol]Orde red By: Johana Archuleta on 03-08-2024 Serum or plasma urea nitrogen measurement (mass/volume) 40 mg/dL High 7-18 [facility] White blood cell (WBC) count Ordered By: Johana Archuleta on 03-08-2024 White blood cell (WBC) count 10.7 K/mm3 4.4-11.0 [facility] Magnesium measurementOrdered By: Anai Sanchez on 03-05-2024 Magnesium measurement 2.3 mg/dL 1.6-2.6 [facility] Acetone [Mass/Vol]Ordered By : Angel Reynaga on 03-04-2024 Serum acetone measurement Negative NEG [facility] BNP (brain natriuretic pepti de measurement)Ordered By: Angel Reynaga on 03-04-2024 BNP (brain natriuretic peptide measurement) 138.8 pg/mL High 0-100 [facility] Basic Metabolic Profile (BMP )on 01-27-2024 BUN Normal 7-18 [facility] Comment on above: Result Comment: Canc elled via OM: Order cancelled - Patient discharged Performed By: #### L 100.0100, L500.2500 ####[facility] [address] [place], [address] BUN/CRE Normal 10-20 [facility] Comment on above: Result Comment: Canc elled via OM: Order cancelled - Patient discharged Performed By: #### L 100.0100, L500.2500 ####[facility] [address] [place], [address] CA,Total Normal 8.5-10.1 [facility] Comment on above: Result Comment: Canc elled via OM: Order cancelled - Patient discharged Performed By: #### L 100.0100, L500.2500 ####[facility] [address] [place], [address] CL Normal 98-107 [facility] Comment on above: Result Comment: Canc elled via OM: Order cancelled - Patient discharged Performed By: #### L 100.0100, L500.2500 ####[facility] [address] [place], [address] CO2 Normal 21.0-32.0 [facility] Comment on above: Result Comment: Canc elled via OM: Order cancelled - Patient discharged Performed By: #### L 100.0100, L500.2500 ####[facility] [address] [place], [address] CREAT,SERUM Normal 0.70-1.30 [facility] Comment on above: Result Comment: Canc elled via OM: Order cancelled - Patient discharged Performed By: #### L 100.0100, L500.2500 ####[facility] [address] [place], [address] EST GFR Normal >60 [facility] Comment on above: Result Comment: Canc elled via OM: Order cancelled - Patient discharged Performed By: #### L 100.0100, L500.2500 ####[facility] [address] [place], [address] EST GFR - AA Normal >60 [facility] Comment on above: Result Comment: Canc elled via OM: Order cancelled - Patient discharged Performed By: #### L 100.0100, L500.2500 ####[facility] [address] [place], [address] GAP Normal 5-15 [facility] Comment on above: Result Comment: Canc elled via OM: Order cancelled - Patient discharged Performed By: #### L 100.0100, L500.2500 ####[facility] [address] [place], [address] GLU Normal 74-106 [facility] Comment on above: Result Comment: Canc elled via OM: Order cancelled - Patient discharged Performed By: #### L 100.0100, L500.2500 ####[facility] [address] [place], [address] Potassium Normal 3.5-5.1 [facility] Comment on above: Result Comment: Canc elled via OM: Order cancelled - Patient discharged Performed By: #### L 100.0100, L500.2500 ####[facility] [address] [place], [address] Basic Metabolic Profile (BMP) Normal 136-145 [facility] Comment on above: Result Comment: Canc elled via OM: Order cancelled - Patient discharged Performed By: #### L 100.0100, L500.2500 ####[facility] [address] [place], [address] CBC W/Diff, Automatedon 11-1 Absolute Neut Normal 2.0-7.7 [facility] Comment on above: Result Comment: Canc elled via OM: Order cancelled - Patient discharged Performed By: #### L 100.0100, L500.2500 ####[facility] [address] [place], [address] HCT Normal 40-54 [facility] Comment on above: Result Comment: Canc elled via OM: Order cancelled - Patient discharged Performed By: #### L 100.0100, L500.2500 ####[facility] [address] [place], [address] HGB Normal 13.0-16.5 [facility] Comment on above: Result Comment: Canc elled via OM: Order cancelled - Patient discharged Performed By: #### L 100.0100, L500.2500 ####[facility] [address] [place], [address] MCH Normal 27.0-32.0 [facility] Comment on above: Result Comment: Canc elled via OM: Order cancelled - Patient discharged Performed By: #### L 100.0100, L500.2500 ####[facility] [address] [place], [address] MCHC Normal 32-36 [facility] Comment on above: Result Comment: Canc elled via OM: Order cancelled - Patient discharged Performed By: #### L 100.0100, L500.2500 ####[facility] [address] [place], [address] MCV Normal 80-94 [facility] Comment on above: Result Comment: Canc elled via OM: Order cancelled - Patient discharged Performed By: #### L 100.0100, L500.2500 ####[facility] [address] [place], [address] NEUT% Normal 47-70 [facility] Comment on above: Result Comment: Canc elled via OM: Order cancelled - Patient discharged Performed By: #### L 100.0100, L500.2500 ####[facility] [address] [place], [address] PLT Normal 150-450 [facility] Comment on above: Result Comment: Canc elled via OM: Order cancelled - Patient discharged Performed By: #### L 100.0100, L500.2500 ####[facility] [address] [place], [address] RBC Normal 4.6-6.2 [facility] Comment on above: Result Comment: Canc elled via OM: Order cancelled - Patient discharged Performed By: #### L 100.0100, L500.2500 ####[facility] [address] [place], [address] RDW CV Normal 11.6-14.6 [facility] Comment on above: Result Comment: Canc elled via OM: Order cancelled - Patient discharged Performed By: #### L 100.0100, L500.2500 ####[facility] [address] [place], [address] RDW SD Normal 35.1-43.9 [facility] Comment on above: Result Comment: Canc elled via OM: Order cancelled - Patient discharged Performed By: #### L 100.0100, L500.2500 ####[facility] [address] [place], [address] WBC Normal 4.4-11.0 [facility] Comment on above: Result Comment: Canc elled via OM: Order cancelled - Patient discharged Performed By: #### L 100.0100, L500.2500 ####[facility] [address] [place], [address] CBC-Complete Blood Cnt No Di ffon 01-26-2024 Erythrocyte distribution width (RBC) [Ratio] 15.1 % High 11.6-14.6 [facility] Comment on above: Performed By: #### L 503.6550, L503.6150, L100.0500, L503.6075 ####[facility] [address] [place], [address] Hematocrit (Bld) [Volume fraction] 32.7 % Low 40-54 [facility] Comment on above: Performed By: #### L 503.6550, L503.6150, L100.0500, L503.6075 ####[facility] [address] [place], [address] Hemoglobin (Bld) [Mass/Vol] 10.8 g/dL Low 13.0-16.5 [facility] Comment on above: Performed By: #### L 503.6550, L503.6150, L100.0500, L503.6075 ####[facility] [address] [place], [address] MCH (RBC) [Entitic mass] 31.3 pg Normal 27.0-32.0 [facility] Comment on above: Performed By: #### L 503.6550, L503.6150, L100.0500, L503.6075 ####[facility] [address] [place], [address] MCHC (RBC) [Mass/Vol] 33.0 g/dL Normal 32-36 [facility] Comment on above: Performed By: #### L 503.6550, L503.6150, L100.0500, L503.6075 ####[facility] [address] [place], [address] MCV (RBC) [Entitic vol] 94.8 fL High 80-94 [facility] Comment on above: Performed By: #### L 503.6550, L503.6150, L100.0500, L503.6075 ####[facility] [address] [place], [address] Platelet mean volume (Bld) [Entitic vol] 11.4 fL Normal 6.2-12.0 [facility] Comment on above: Performed By: #### L 503.6550, L503.6150, L100.0500, L503.6075 ####[facility] [address] [place], [address] Platelets (Bld) [#/Vol] 252 10*3/uL Normal 150-450 [facility] Comment on above: Performed By: #### L 503.6550, L503.6150, L100.0500, L503.6075 ####[facility] [address] [place], [address] RBC (Bld) [#/Vol] 3.45 10*6/uL Low 4.6-6.2 [facility] Comment on above: Performed By: #### L 503.6550, L503.6150, L100.0500, L503.6075 ####[facility] [address] [place], [address] RDW SD 52.1 fl High 35.1-43.9 [facility] Comment on above: Performed By: #### L 503.6550, L503.6150, L100.0500, L503.6075 ####[facility] [address] [place], [address] WBC (Bld) [#/Vol] 8.1 10*3/uL Normal 4.4-11.0 [facility] Comment on above: Performed By: #### L 503.6550, L503.6150, L100.0500, L503.6075 ####[facility] [address] [place], [address] Ferritinon 01-26-2024 Ferritin [Mass/Vol] 664 ng/mL High 26-388 [facility] Comment on above: Performed By: #### L 503.6550, L503.6150, L100.0500, L503.6075 ####[facility] [address] [place], [address] Ironon 01-26-2024 Iron [Mass/Vol] 39 ug/dL Low 65-175 [facility] Comment on above: Performed By: #### L 503.6550, L503.6150, L100.0500, L503.6075 ####[facility] [address] [place], [address] Iron Binding Capacity,Totalo n 01-26-2024 TIBC 255 ug/dL Normal 250-450 [facility] Comment on above: Performed By: #### L 503.6550, L503.6150, L100.0500, L503.6075 ####[facility] [address] [place], [address] Neurology Visit Reporton Neurology Visit Report Normal [facility] Basic Metabolic Profile (BMP )on 01-20-2024 BUN Normal 7-18 [facility] Comment on above: Result Comment: Canc elled via OM: Order cancelled - Patient discharged Performed By: #### L 100.0100, L500.2500 ####[facility] [address] [place], [address] BUN/CRE Normal 10-20 [facility] Comment on above: Result Comment: Canc elled via OM: Order cancelled - Patient discharged Performed By: #### L 100.0100, L500.2500 ####[facility] [address] [place], [address] CA,Total Normal 8.5-10.1 [facility] Comment on above: Result Comment: Canc elled via OM: Order cancelled - Patient discharged Performed By: #### L 100.0100, L500.2500 ####[facility] [address] [place], [address] CL Normal 98-107 [facility] Comment on above: Result Comment: Canc elled via OM: Order cancelled - Patient discharged Performed By: #### L 100.0100, L500.2500 ####[facility] [address], [address] CO2 Normal 21.0-32.0 [facility] Comment on above: Result Comment: Canc elled via OM: Order cancelled - Patient discharged Performed By: #### L 100.0100, L500.2500 ####[facility] [address] [place], [address] CREAT,SERUM Normal 0.70-1.30 [facility] Comment on above: Result Comment: Canc elled via OM: Order cancelled - Patient discharged Performed By: #### L 100.0100, L500.2500 ####[facility] [address] [place], [address] EST GFR Normal >60 [facility] Comment on above: Result Comment: Canc elled via OM: Order cancelled - Patient discharged Performed By: #### L 100.0100, L500.2500 ####[facility] [address] [place], [address] EST GFR - AA Normal >60 [facility] Comment on above: Result Comment: Canc elled via OM: Order cancelled - Patient discharged Performed By: #### L 100.0100, L500.2500 ####[facility] [address] [place], [address] GAP Normal 5-15 [facility] Comment on above: Result Comment: Canc elled via OM: Order cancelled - Patient discharged Performed By: #### L 100.0100, L500.2500 ####[facility] [address] [place], [address] GLU Normal 74-106 [facility] Comment on above: Result Comment: Canc elled via OM: Order cancelled - Patient discharged Performed By: #### L 100.0100, L500.2500 ####[facility] [address] [place], [address] Potassium Normal 3.5-5.1 [facility] Comment on above: Result Comment: Canc elled via OM: Order cancelled - Patient discharged Performed By: #### L 100.0100, L500.2500 ####[facility] [address] [place], [address] Basic Metabolic Profile (BMP) Normal 136-145 [facility] Comment on above: Result Comment: Canc elled via OM: Order cancelled - Patient discharged Performed By: #### L 100.0100, L500.2500 ####[facility] [address] [place], [address] CBC W/Diff, Automatedon 11-0 8-2023 Absolute Neut Normal 2.0-7.7 [facility] Comment on above: Result Comment: Canc elled via OM: Order cancelled - Patient discharged Performed By: #### L 100.0100, L500.2500 ####[facility] [address] [place], [address] HCT Normal 40-54 [facility] Comment on above: Result Comment: Canc elled via OM: Order cancelled - Patient discharged Performed By: #### L 100.0100, L500.2500 ####[facility] [address] [place], [address] HGB Normal 13.0-16.5 [facility] Comment on above: Result Comment: Canc elled via OM: Order cancelled - Patient discharged Performed By: #### L 100.0100, L500.2500 ####[facility] [address] [place], [address] MCH Normal 27.0-32.0 [facility] Comment on above: Result Comment: Canc elled via OM: Order cancelled - Patient discharged Performed By: #### L 100.0100, L500.2500 ####[facility] [address] [place], [address] MCHC Normal 32-36 [facility] Comment on above: Result Comment: Canc elled via OM: Order cancelled - Patient discharged Performed By: #### L 100.0100, L500.2500 ####[facility] [address] [place], [address] MCV Normal 80-94 [facility] Comment on above: Result Comment: Canc elled via OM: Order cancelled - Patient discharged Performed By: #### L 100.0100, L500.2500 ####[facility] [address] [place], [address] NEUT% Normal 47-70 [facility] Comment on above: Result Comment: Canc elled via OM: Order cancelled - Patient discharged Performed By: #### L 100.0100, L500.2500 ####[facility] [address] [place], [address] PLT Normal 150-450 [facility] Comment on above: Result Comment: Canc elled via OM: Order cancelled - Patient discharged Performed By: #### L 100.0100, L500.2500 ####[facility] [address] [place], [address] RBC Normal 4.6-6.2 [facility] Comment on above: Result Comment: Canc elled via OM: Order cancelled - Patient discharged Performed By: #### L 100.0100, L500.2500 ####[facility] [address] [place], [address] RDW CV Normal 11.6-14.6 [facility] Comment on above: Result Comment: Canc elled via OM: Order cancelled - Patient discharged Performed By: #### L 100.0100, L500.2500 ####[facility] [address] [place], [address] RDW SD Normal 35.1-43.9 [facility] Comment on above: Result Comment: Canc elled via OM: Order cancelled - Patient discharged Performed By: #### L 100.0100, L500.2500 ####[facility] [address] [place], [address] WBC Normal 4.4-11.0 [facility] Comment on above: Result Comment: Canc elled via OM: Order cancelled - Patient discharged Performed By: #### L 100.0100, L500.2500 ####[facility] [address] [place], [address] Basic Metabolic Profile (BMP )on 01-13-2024 BUN Normal 7-18 [facility] Comment on above: Result Comment: Canc elled via OM: Order cancelled - Patient discharged Performed By: #### L 500.2500, L100.0100 ####[facility] [address] [place], [address] BUN/CRE Normal 10-20 [facility] Comment on above: Result Comment: Canc elled via OM: Order cancelled - Patient discharged Performed By: #### L 500.2500, L100.0100 ####[facility] [address] [place], [address] CA,Total Normal 8.5-10.1 [facility] Comment on above: Result Comment: Canc elled via OM: Order cancelled - Patient discharged Performed By: #### L 500.2500, L100.0100 ####[facility] [address] [place], [address] CL Normal 98-107 [facility] Comment on above: Result Comment: Canc elled via OM: Order cancelled - Patient discharged Performed By: #### L 500.2500, L100.0100 ####[facility] [address] [place], [address] CO2 Normal 21.0-32.0 [facility] Comment on above: Result Comment: Canc elled via OM: Order cancelled - Patient discharged Performed By: #### L 500.2500, L100.0100 ####[facility] [address] [place], [address] CREAT,SERUM Normal 0.70-1.30 [facility] Comment on above: Result Comment: Canc elled via OM: Order cancelled - Patient discharged Performed By: #### L 500.2500, L100.0100 ####[facility] [address] [place], [address] EST GFR Normal >60 [facility] Comment on above: Result Comment: Canc elled via OM: Order cancelled - Patient discharged Performed By: #### L 500.2500, L100.0100 ####[facility] [address] [place], [address] EST GFR - AA Normal >60 [facility] Comment on above: Result Comment: Canc elled via OM: Order cancelled - Patient discharged Performed By: #### L 500.2500, L100.0100 ####[facility] [address] [place], [address] GAP Normal 5-15 [facility] Comment on above: Result Comment: Canc elled via OM: Order cancelled - Patient discharged Performed By: #### L 500.2500, L100.0100 ####[facility] [address] [place], [address] GLU Normal 74-106 [facility] Comment on above: Result Comment: Canc elled via OM: Order cancelled - Patient discharged Performed By: #### L 500.2500, L100.0100 ####[facility] [address] [place], [address] Potassium Normal 3.5-5.1 [facility] Comment on above: Result Comment: Canc elled via OM: Order cancelled - Patient discharged Performed By: #### L 500.2500, L100.0100 ####[facility] [address] [place], [address] Basic Metabolic Profile (BMP) Normal 136-145 [facility] Comment on above: Result Comment: Canc elled via OM: Order cancelled - Patient discharged Performed By: #### L 500.2500, L100.0100 ####[facility] [address] [place], [address] CBC W/Diff, Automatedon 11-0 -2023 Absolute Neut Normal 2.0-7.7 [facility] Comment on above: Result Comment: Canc elled via OM: Order cancelled - Patient discharged Performed By: #### L 500.2500, L100.0100 ####[facility] [address] [place], [address] HCT Normal 40-54 [facility] Comment on above: Result Comment: Canc elled via OM: Order cancelled - Patient discharged Performed By: #### L 500.2500, L100.0100 ####[facility] [address] [place], [address] HGB Normal 13.0-16.5 [facility] Comment on above: Result Comment: Canc elled via OM: Order cancelled - Patient discharged Performed By: #### L 500.2500, L100.0100 ####[facility] [address] [place], [address] MCH Normal 27.0-32.0 [facility] Comment on above: Result Comment: Canc elled via OM: Order cancelled - Patient discharged Performed By: #### L 500.2500, L100.0100 ####[facility] [address] [place], [address] MCHC Normal 32-36 [facility] Comment on above: Result Comment: Canc elled via OM: Order cancelled - Patient discharged Performed By: #### L 500.2500, L100.0100 ####[facility] [address] [place], [address] MCV Normal 80-94 [facility] Comment on above: Result Comment: Canc elled via OM: Order cancelled - Patient discharged Performed By: #### L 500.2500, L100.0100 ####[facility] [address] [place], [address] NEUT% Normal 47-70 [facility] Comment on above: Result Comment: Canc elled via OM: Order cancelled - Patient discharged Performed By: #### L 500.2500, L100.0100 ####[facility] [address] [place], [address] PLT Normal 150-450 [facility] Comment on above: Result Comment: Canc elled via OM: Order cancelled - Patient discharged Performed By: #### L 500.2500, L100.0100 ####[facility] [address] [place], [address] RBC Normal 4.6-6.2 [facility] Comment on above: Result Comment: Canc elled via OM: Order cancelled - Patient discharged Performed By: #### L 500.2500, L100.0100 ####[facility] [address] [place], [address] RDW CV Normal 11.6-14.6 [facility] Comment on above: Result Comment: Canc elled via OM: Order cancelled - Patient discharged Performed By: #### L 500.2500, L100.0100 ####[facility] [address] [place], [address] RDW SD Normal 35.1-43.9 [facility] Comment on above: Result Comment: Canc elled via OM: Order cancelled - Patient discharged Performed By: #### L 500.2500, L100.0100 ####[facility] [address] [place], [address] WBC Normal 4.4-11.0 [facility] Comment on above: Result Comment: Canc elled via OM: Order cancelled - Patient discharged Performed By: #### L 500.2500, L100.0100 ####[facility] [address] [place], [address] Bedside Glucoseon 01-12-2024 FINGERSTICK GLU 189 mg/dL High 74-106 [facility] Comment on above: Result Comment: SARAN SAM OF PATIENT CARE PER NURSING PROTOCOL Performed By: #### L 501.080 ####[facility] [address] [place], [address] Basic Metabolic Profile (BMP )on 01-11-2024 BUN/CRE 42.7 RATIO High 10-20 [facility] Comment on above: Performed By: #### L 500.2500 ####[facility] [address] [place], [address] CA,Total 9.4 mg/dL Normal 8.5-10.1 [facility] Comment on above: Performed By: #### L 500.2500 ####[facility] [address] [place], [address] Chloride [Moles/Vol] 105 mmol/L Normal 98-107 [facility] Comment on above: Performed By: #### L 500.2500 ####[facility] [address] [place], [address] CO2 [Moles/Vol] 27.0 mmol/L Normal 21.0-32.0 [facility] Comment on above: Performed By: #### L 500.2500 ####[facility] [address] [place], [address] Creatinine [Mass/Vol] 1.71 mg/dL High 0.70-1.30 [facility] Comment on above: Result Comment: The validity of the calculated GFR GFRAA in patients over70 years has not been determined. Clinical correlation isessential. Performed By: #### L 500.2500 ####[facility] [address], [address] ECRCL 35.30 ml/min Normal [facility] Comment on above: Performed By: #### L 500.2500 ####[facility] [address] [place], [address] EST GFR - AA 49 mL/min Low >60 [facility] Comment on above: Result Comment: Afri can Sudanese GFR Calc Performed By: #### L 500.2500 ####[facility] [address] [place], [address] GAP 7 Normal 5-15 [facility] Comment on above: Performed By: #### L 500.2500 ####[facility] [address] [place], [address] GFR/1.73 sq M.predicted among non-blacks MDRD (S/P/Bld) [Vol rate/Area] 41 mL/min/{1.73_m2} Low >60 [facility] Comment on above: Result Comment: Non- GFR Calc Performed By: #### L 500.2500 ####[facility] [address] [place], [address] Glucose [Mass/Vol] 192 mg/dL High 74-106 [facility] Comment on above: Result Comment: Fast ing Glucose result greater than or equal to 126 mg/dLsuggests DIABETES MELLITUS per A.D.A. criteria. Performed By: #### L 500.2500 ####[facility] [address] [place], [address] Potassium [Moles/Vol] 4.1 mmol/L Normal 3.5-5.1 [facility] Comment on above: Performed By: #### L 500.2500 ####[facility] [address] [place], [address] Sodium [Moles/Vol] 139 mmol/L Normal 136-145 [facility] Comment on above: Performed By: #### L 500.2500 ####[facility] [address] [place], [address] Urea nitrogen [Mass/Vol] 73 mg/dL High 7-18 [facility] Comment on above: Performed By: #### L 500.2500 ####[facility] [address] [place], [address] Bedside Glucoseon 01-11-2024 FINGERSTICK GLU 134 mg/dL High 74-106 [facility] Comment on above: Result Comment: SARAN GEMENT OF PATIENT CARE PER NURSING PROTOCOL Performed By: #### L 501.080 ####[facility] [address] [place], [address] Bedside Glucoseon 01-10-2024 FINGERSTICK GLU 158 mg/dL High 74-106 [facility] Comment on above: Result Comment: SARAN GEMENT OF PATIENT CARE PER NURSING PROTOCOL Performed By: #### L 501.080 ####[facility] [address] [place], [address] Bedside Glucoseon 01-09-2024 FINGERSTICK GLU 162 mg/dL High 74-106 [facility] Comment on above: Result Comment: SARAN GEMENT OF PATIENT CARE PER NURSING PROTOCOL Performed By: #### L 501.080 ####[facility] [address] [place], [address] Bedside Glucoseon 01-08-2024 FINGERSTICK GLU 139 mg/dL High 74-106 [facility] Comment on above: Result Comment: SARAN GEMENT OF PATIENT CARE PER NURSING PROTOCOL Performed By: #### L 501.080 ####[facility] [address] [place], [address] Bedside Glucoseon 01-07-2024 FINGERSTICK GLU 127 mg/dL High 74-106 [facility] Comment on above: Result Comment: SARAN GEMENT OF PATIENT CARE PER NURSING PROTOCOL Performed By: #### L 501.080 ####[facility] [address] [place], [address] Basic Metabolic Profile (BMP )on 01-06-2024 BUN/CRE 39.0 RATIO High 10-20 [facility] Comment on above: Performed By: #### L 100.0100, L500.2500 ####[facility] [address] [place], [address] CA,Total 9.4 mg/dL Normal 8.5-10.1 [facility] Comment on above: Performed By: #### L 100.0100, L500.2500 ####[facility] [address] [place], [address] Chloride [Moles/Vol] 105 mmol/L Normal 98-107 [facility] Comment on above: Performed By: #### L 100.0100, L500.2500 ####[facility] [address] [place], [address] CO2 [Moles/Vol] 29.0 mmol/L Normal 21.0-32.0 [facility] Comment on above: Performed By: #### L 100.0100, L500.2500 ####[facility] [address] [place], [address] Creatinine [Mass/Vol] 1.87 mg/dL High 0.70-1.30 [facility] Comment on above: Result Comment: The validity of the calculated GFR GFRAA in patients over70 years has not been determined. Clinical correlation isessential. Performed By: #### L 100.0100, L500.2500 ####[facility] [address] [place], [address] ECRCL 32.28 ml/min Normal [facility] Comment on above: Performed By: #### L 100.0100, L500.2500 ####[facility] [address] [place], [address] EST GFR - AA 44 mL/min Low >60 [facility] Comment on above: Result Comment: Afri can Sudanese GFR Calc Performed By: #### L 100.0100, L500.2500 ####[facility] [address] [place], [address] GAP 6 Normal 5-15 [facility] Comment on above: Performed By: #### L 100.0100, L500.2500 ####[facility] [address] [place], [address] GFR/1.73 sq M.predicted among non-blacks MDRD (S/P/Bld) [Vol rate/Area] 37 mL/min/{1.73_m2} Low >60 [facility] Comment on above: Result Comment: Non- GFR Calc Performed By: #### L 100.0100, L500.2500 ####[facility] [address] [place], [address] Glucose [Mass/Vol] 240 mg/dL High 74-106 [facility] Comment on above: Result Comment: Gluc ose result greater than or equal to 200 mg/dLsuggests DIABETES MELLITUS per A.D.A. criteria. Performed By: #### L 100.0100, L500.2500 ####[facility] [address] [place], [address] Potassium [Moles/Vol] 4.1 mmol/L Normal 3.5-5.1 [facility] Comment on above: Performed By: #### L 100.0100, L500.2500 ####[facility] [address] [place], [address] Sodium [Moles/Vol] 140 mmol/L Normal 136-145 [facility] Comment on above: Performed By: #### L 100.0100, L500.2500 ####[facility] [address] [place], [address] Urea nitrogen [Mass/Vol] 73 mg/dL High 7-18 [facility] Comment on above: Performed By: #### L 100.0100, L500.2500 ####[facility] [address] [place], [address] Bedside Glucoseon 01-06-2024 FINGERSTICK GLU 119 mg/dL High 74-106 [facility] Comment on above: Result Comment: SARAN SAM OF PATIENT CARE PER NURSING PROTOCOL Performed By: #### L 501.080 ####[facility] [address] [place], [address] CBC W/Diff, Automatedon 10-2 Absolute Lymph 1.62 X10 3/uL Normal 0.83-4.51 [facility] Comment on above: Performed By: #### L 100.0100, L500.2500 ####[facility] [address] [place], [address] Absolute Neut 6.3 X10 3/uL Normal 2.0-7.7 [facility] Comment on above: Performed By: #### L 100.0100, L500.2500 ####[facility] [address] [place], [address] Basophils/100 WBC (Bld) 0.7 % Normal 0-1 [facility] Comment on above: Performed By: #### L 100.0100, L500.2500 ####[facility] [address] [place], [address] Eosinophils/100 WBC (Bld) 9.6 % High 0-5 [facility] Comment on above: Performed By: #### L 100.0100, L500.2500 ####[facility] [address] [place], [address] Erythrocyte distribution width (RBC) [Ratio] 16.0 % High 11.6-14.6 [facility] Comment on above: Performed By: #### L 100.0100, L500.2500 ####[facility] [address] [place], [address] Hematocrit (Bld) [Volume fraction] 30.5 % Low 40-54 [facility] Comment on above: Performed By: #### L 100.0100, L500.2500 ####[facility] [address] [place], [address] Hemoglobin (Bld) [Mass/Vol] 9.8 g/dL Low 13.0-16.5 [facility] Comment on above: Performed By: #### L 100.0100, L500.2500 ####[facility] [address] [place], [address] IG% 0.600 Normal 0.0-0.9 [facility] Comment on above: Result Comment: IG% - Immature Granulocytes (promyelocytes, myelocytes andmetamyelocytes) > 1% indicates that a LEFT SHIFT is Present. Performed By: #### L 100.0100, L500.2500 ####[facility] [address] [place], [address] Lymphocytes/100 WBC (Bld) 16.1 % Low 19-41 [facility] Comment on above: Performed By: #### L 100.0100, L500.2500 ####[facility] [address] [place], [address] MCH (RBC) [Entitic mass] 30.4 pg Normal 27.0-32.0 [facility] Comment on above: Performed By: #### L 100.0100, L500.2500 ####[facility] [address] [place], [address] MCHC (RBC) [Mass/Vol] 32.1 g/dL Normal 32-36 [facility] Comment on above: Performed By: #### L 100.0100, L500.2500 ####[facility] [address] [place], [address] MCV (RBC) [Entitic vol] 94.7 fL High 80-94 [facility] Comment on above: Performed By: #### L 100.0100, L500.2500 ####[facility] [address] [place], [address] Monocytes/100 WBC (Bld) 10.4 % High 0-10 [facility] Comment on above: Performed By: #### L 100.0100, L500.2500 ####[facility] [address] [place], [address] Neutrophils/100 WBC (Bld) 62.6 % Normal 47-70 [facility] Comment on above: Performed By: #### L 100.0100, L500.2500 ####[facility] [address] [place], [address] Nucleated RBC (Bld) [#/Vol] 0 10*3/uL Normal 0-5 [facility] Comment on above: Performed By: #### L 100.0100, L500.2500 ####[facility] [address] [place], [address] Platelet mean volume (Bld) [Entitic vol] 10.6 fL Normal 6.2-12.0 [facility] Comment on above: Performed By: #### L 100.0100, L500.2500 ####[facility] [address] [place], [address] Platelets (Bld) [#/Vol] 265 10*3/uL Normal 150-450 [facility] Comment on above: Performed By: #### L 100.0100, L500.2500 ####[facility] [address] [place], [address] RBC (Bld) [#/Vol] 3.22 10*6/uL Low 4.6-6.2 [facility] Comment on above: Performed By: #### L 100.0100, L500.2500 ####[facility] [address] [place], [address] RDW SD 56.1 fl High 35.1-43.9 [facility] Comment on above: Performed By: #### L 100.0100, L500.2500 ####[facility] [address] [place], [address] WBC (Bld) [#/Vol] 10.1 10*3/uL Normal 4.4-11.0 [facility] Comment on above: Performed By: #### L 100.0100, L500.2500 ####[facility] [address] [place], [address] Bedside Glucoseon 01-05-2024 FINGERSTICK GLU 162 mg/dL High 74-106 [facility] Comment on above: Result Comment: SARAN GEMENT OF PATIENT CARE PER NURSING PROTOCOL Performed By: #### L 501.080 ####[facility] [address] [place], [address] Bedside Glucoseon 01-04-2024 FINGERSTICK GLU 160 mg/dL High 74-106 [facility] Comment on above: Result Comment: SARAN GEMENT OF PATIENT CARE PER NURSING PROTOCOL Performed By: #### L 501.080 ####[facility] [address] [place], [address] Bedside Glucoseon 01-03-2024 FINGERSTICK GLU 132 mg/dL High 74-106 [facility] Comment on above: Result Comment: SARAN GEMENT OF PATIENT CARE PER NURSING PROTOCOL Performed By: #### L 501.080 ####[facility] [address] [place], [address] Bedside Glucoseon 01-02-2024 FINGERSTICK GLU 170 mg/dL High 74-106 [facility] Comment on above: Result Comment: SARAN GEMENT OF PATIENT CARE PER NURSING PROTOCOL Performed By: #### L 501.080 ####[facility] [address] [place], [address] Bedside Glucoseon 01-01-2024 FINGERSTICK GLU 149 mg/dL High 74-106 [facility] Comment on above: Result Comment: SARAN GEMENT OF PATIENT CARE PER NURSING PROTOCOL Performed By: #### L 501.080 ####[facility] [address] [place], [address] Bedside Glucoseon 12-31-2023 FINGERSTICK GLU 143 mg/dL High 74-106 [facility] Comment on above: Result Comment: SARAN GEMENT OF PATIENT CARE PER NURSING PROTOCOL Performed By: #### L 501.080 ####[facility] [address] [place], [address] Basic Metabolic Profile (BMP )on 12-30-2023 BUN/CRE 37.6 RATIO High 20 [facility] Comment on above: Performed By: #### L 100.0100, L500.2500 ####[facility] [address] [place], [address] CA,Total 8.9 mg/dL Normal 8.5-10.1 [facility] Comment on above: Performed By: #### L 100.0100, L500.2500 ####[facility] [address] [place], [address] Chloride [Moles/Vol] 106 mmol/L Normal 98-107 [facility] Comment on above: Performed By: #### L 100.0100, L500.2500 ####[facility] [address] [place], [address] CO2 [Moles/Vol] 28.0 mmol/L Normal 21.0-32.0 [facility] Comment on above: Performed By: #### L 100.0100, L500.2500 ####[facility] [address] [place], [address] Creatinine [Mass/Vol] 1.57 mg/dL High 0.70-1.30 [facility] Comment on above: Result Comment: The validity of the calculated GFR GFRAA in patients over70 years has not been determined. Clinical correlation isessential. Performed By: #### L 100.0100, L500.2500 ####[facility] [address] [place], [address] ECRCL 38.44 ml/min Normal [facility] Comment on above: Performed By: #### L 100.0100, L500.2500 ####[facility] [address] [place], [address] EST GFR - AA 54 mL/min Low >60 [facility] Comment on above: Result Comment: Afri can Sudanese GFR Calc Performed By: #### L 100.0100, L500.2500 ####[facility] [address] [place], [address] GAP 5 Normal 5-15 [facility] Comment on above: Performed By: #### L 100.0100, L500.2500 ####[facility] [address] [place], [address] GFR/1.73 sq M.predicted among non-blacks MDRD (S/P/Bld) [Vol rate/Area] 45 mL/min/{1.73_m2} Low >60 [facility] Comment on above: Result Comment: Non- GFR Calc Performed By: #### L 100.0100, L500.2500 ####[facility] [address] [place], [address] Glucose [Mass/Vol] 179 mg/dL High 74-106 [facility] Comment on above: Result Comment: Fast ing Glucose result greater than or equal to 126 mg/dLsuggests DIABETES MELLITUS per A.D.A. criteria. Performed By: #### L 100.0100, L500.2500 ####[facility] [address] [place], [address] Potassium [Moles/Vol] 3.8 mmol/L Normal 3.5-5.1 [facility] Comment on above: Performed By: #### L 100.0100, L500.2500 ####[facility] [address] [place], [address] Sodium [Moles/Vol] 139 mmol/L Normal 136-145 [facility] Comment on above: Performed By: #### L 100.0100, L500.2500 ####[facility] [address] [place], [address] Urea nitrogen [Mass/Vol] 59 mg/dL High -18 [facility] Comment on above: Performed By: #### L 100.0100, L500.2500 ####[facility] [address] [place], [address] Bedside Glucoseon 12-30-2023 FINGERSTICK GLU 172 mg/dL High 74-106 [facility] Comment on above: Result Comment: SARAN CECY OF PATIENT CARE PER NURSING PROTOCOL Performed By: #### L 501.080 ####[facility] [address] [place], [address] CBC W/Diff, Automatedon 10- Absolute Lymph 1.73 X10 3/uL Normal 0.83-4.51 [facility] Comment on above: Performed By: #### L 100.0100, L500.2500 ####[facility] [address], [address] Absolute Neut 6.8 X10 3/uL Normal 2.0-7.7 [facility] Comment on above: Performed By: #### L 100.0100, L500.2500 ####[facility] [address] [place], [address] Basophils/100 WBC (Bld) 0.8 % Normal 0-1 [facility] Comment on above: Performed By: #### L 100.0100, L500.2500 ####[facility] [address] [place], [address] Eosinophils/100 WBC (Bld) 8.9 % High 0-5 [facility] Comment on above: Performed By: #### L 100.0100, L500.2500 ####[facility] [address] [place], [address] Erythrocyte distribution width (RBC) [Ratio] 16.2 % High 11.6-14.6 [facility] Comment on above: Performed By: #### L 100.0100, L500.2500 ####[facility] [address] [place], [address] Hematocrit (Bld) [Volume fraction] 26.7 % Low 40-54 [facility] Comment on above: Performed By: #### L 100.0100, L500.2500 ####[facility] [address] [place], [address] Hemoglobin (Bld) [Mass/Vol] 8.8 g/dL Low 13.0-16.5 [facility] Comment on above: Performed By: #### L 100.0100, L500.2500 ####[facility] [address] [place], [address] IG% 0.700 Normal 0.0-0.9 [facility] Comment on above: Result Comment: IG% - Immature Granulocytes (promyelocytes, myelocytes andmetamyelocytes) > 1% indicates that a LEFT SHIFT is Present. Performed By: #### L 100.0100, L500.2500 ####[facility] [address] [place], [address] Lymphocytes/100 WBC (Bld) 16.4 % Low 19-41 [facility] Comment on above: Performed By: #### L 100.0100, L500.2500 ####[facility] [address] [place], [address] MCH (RBC) [Entitic mass] 30.8 pg Normal 27.0-32.0 [facility] Comment on above: Performed By: #### L 100.0100, L500.2500 ####[facility] [address] [place], [address] MCHC (RBC) [Mass/Vol] 33.0 g/dL Normal 32-36 [facility] Comment on above: Performed By: #### L 100.0100, L500.2500 ####[facility] [address] [place], [address] MCV (RBC) [Entitic vol] 93.4 fL Normal 80-94 [facility] Comment on above: Performed By: #### L 100.0100, L500.2500 ####[facility] [address] [place], [address] Monocytes/100 WBC (Bld) 9.0 % Normal 0-10 [facility] Comment on above: Performed By: #### L 100.0100, L500.2500 ####[facility] [address] [place], [address] Neutrophils/100 WBC (Bld) 64.2 % Normal 47-70 [facility] Comment on above: Performed By: #### L 100.0100, L500.2500 ####[facility] [address] [place], [address] Nucleated RBC (Bld) [#/Vol] 0 10*3/uL Normal 0-5 [facility] Comment on above: Performed By: #### L 100.0100, L500.2500 ####[facility] [address] [place], [address] Platelet mean volume (Bld) [Entitic vol] 10.0 fL Normal 6.2-12.0 [facility] Comment on above: Performed By: #### L 100.0100, L500.2500 ####[facility] [address] [place], [address] Platelets (Bld) [#/Vol] 331 10*3/uL Normal 150-450 [facility] Comment on above: Performed By: #### L 100.0100, L500.2500 ####[facility] [address] [place], [address] RBC (Bld) [#/Vol] 2.86 10*6/uL Low 4.6-6.2 [facility] Comment on above: Performed By: #### L 100.0100, L500.2500 ####[facility] [address] [place], [address] RDW SD 55.2 fl High 35.1-43.9 [facility] Comment on above: Performed By: #### L 100.0100, L500.2500 ####[facility] [address] [place], [address] WBC (Bld) [#/Vol] 10.5 10*3/uL Normal 4.4-11.0 [facility] Comment on above: Performed By: #### L 100.0100, L500.2500 ####[facility] [address] [place], [address] Bedside Glucoseon 12-29-2023 FINGERSTICK GLU 189 mg/dL High 74-106 [facility] Comment on above: Result Comment: SARAN GEMENT OF PATIENT CARE PER NURSING PROTOCOL Performed By: #### L 501.080 ####[facility] [address] [place], [address] HIP, UNI W/ Pelvis 2-3 Views on 12-29-2023 HIP, UNI W/ Pelvis 2-3 Views Normal [facility] Bedside Glucoseon 12-28-2023 FINGERSTICK GLU 156 mg/dL High 74-106 [facility] Comment on above: Result Comment: SARAN GEMENT OF PATIENT CARE PER NURSING PROTOCOL Performed By: #### L 501.080 ####[facility] [address] [place], [address] Bedside Glucoseon 12-27-2023 FINGERSTICK GLU 175 mg/dL High 74-106 [facility] Comment on above: Result Comment: SARAN GEMENT OF PATIENT CARE PER NURSING PROTOCOL Performed By: #### L 501.080 ####[facility] [address] [place], [address] COVID 19 AG RAPID (RN MOHSEN T)on 12-27-2023 SARS-CoV-2 (COVID-19) RNA GONSALO+probe Ql (Unsp spec) Normal [facility] Comment on above: Performed By: #### M 100.505 ####[facility] [address] [place], [address] Bedside Glucoseon 12-26-2023 FINGERSTICK GLU 137 mg/dL High 74-106 [facility] Comment on above: Result Comment: SARAN GEMENT OF PATIENT CARE PER NURSING PROTOCOL Performed By: #### L 501.080 ####[facility] [address] [place], [address] Bedside Glucoseon 12-25-2023 FINGERSTICK GLU 146 mg/dL High 74-106 [facility] Comment on above: Result Comment: SARAN GEMENT OF PATIENT CARE PER NURSING PROTOCOL Performed By: #### L 501.080 ####[facility] [address] [place], [address] Bedside Glucoseon 12-24-2023 FINGERSTICK GLU 149 mg/dL High 74-106 [facility] Comment on above: Result Comment: SARAN GEMENT OF PATIENT CARE PER NURSING PROTOCOL Performed By: #### L 501.080 ####[facility] [address], [address] Basic Metabolic Profile (BMP )on 12-23-2023 BUN/CRE 24.5 RATIO High 10-20 [facility] Comment on above: Performed By: #### L 500.2500, L100.0100 ####[facility] [address] [place], [address] CA,Total 8.8 mg/dL Normal 8.5-10.1 [facility] Comment on above: Performed By: #### L 500.2500, L100.0100 ####[facility] [address] [place], [address] Chloride [Moles/Vol] 106 mmol/L Normal 98-107 [facility] Comment on above: Performed By: #### L 500.2500, L100.0100 ####[facility] [address] [place], [address] CO2 [Moles/Vol] 30.0 mmol/L Normal 21.0-32.0 [facility] Comment on above: Performed By: #### L 500.2500, L100.0100 ####[facility] [address], [address] Creatinine [Mass/Vol] 1.55 mg/dL High 0.70-1.30 [facility] Comment on above: Result Comment: The validity of the calculated GFR GFRAA in patients over70 years has not been determined. Clinical correlation isessential. Performed By: #### L 500.2500, L100.0100 ####[facility] [address] [place], [address] ECRCL 38.94 ml/min Normal [facility] Comment on above: Performed By: #### L 500.2500, L100.0100 ####[facility] [address] [place], [address] EST GFR - AA 55 mL/min Low >60 [facility] Comment on above: Result Comment: Afri can Sudanese GFR Calc Performed By: #### L 500.2500, L100.0100 ####[facility] [address] [place], [address] GAP 4 Low 5-15 [facility] Comment on above: Performed By: #### L 500.2500, L100.0100 ####[facility] [address] [place], [address] GFR/1.73 sq M.predicted among non-blacks MDRD (S/P/Bld) [Vol rate/Area] 46 mL/min/{1.73_m2} Low >60 [facility] Comment on above: Result Comment: Non- GFR Calc Performed By: #### L 500.2500, L100.0100 ####[facility] [address] [place], [address] Glucose [Mass/Vol] 149 mg/dL High 74-106 [facility] Comment on above: Result Comment: Fast ing Glucose result greater than or equal to 126 mg/dLsuggests DIABETES MELLITUS per A.D.A. criteria. Performed By: #### L 500.2500, L100.0100 ####[facility] [address] [place], [address] Potassium [Moles/Vol] 3.8 mmol/L Normal 3.5-5.1 [facility] Comment on above: Performed By: #### L 500.2500, L100.0100 ####[facility] [address] [place], [address] Sodium [Moles/Vol] 141 mmol/L Normal 136-145 [facility] Comment on above: Performed By: #### L 500.2500, L100.0100 ####[facility] [address] [place], [address] Urea nitrogen [Mass/Vol] 38 mg/dL High 7-18 [facility] Comment on above: Performed By: #### L 500.2500, L100.0100 ####[facility] [address] [place], [address] Bedside Glucoseon 12-23-2023 FINGERSTICK GLU 150 mg/dL High 74-106 [facility] Comment on above: Result Comment: SARAN SAM OF PATIENT CARE PER NURSING PROTOCOL Performed By: #### L 501.080 ####[facility] [address] [place], [address] CBC W/Diff, Automatedon 12-12 Absolute Lymph 2.20 X10 3/uL Normal 0.83-4.51 [facility] Comment on above: Performed By: #### L 500.2500, L100.0100 ####[facility] [address] [place], [address] Absolute Neut 10.7 X10 3/uL High 2.0-7.7 [facility] Comment on above: Performed By: #### L 500.2500, L100.0100 ####[facility] [address] [place], [address] Basophils/100 WBC (Bld) 0.5 % Normal 0-1 [facility] Comment on above: Performed By: #### L 500.2500, L100.0100 ####[facility] [address] [place], [address] Eosinophils/100 WBC (Bld) 4.9 % Normal 0-5 [facility] Comment on above: Performed By: #### L 500.2500, L100.0100 ####[facility] [address] [place] [place], [address] Erythrocyte distribution width (RBC) [Ratio] 15.9 % High 11.6-14.6 [facility] Comment on above: Performed By: #### L 500.2500, L100.0100 ####[facility] [address] [place], [address] Hematocrit (Bld) [Volume fraction] 30.4 % Low 40-54 [facility] Comment on above: Performed By: #### L 500.2500, L100.0100 ####[facility] [address] [place], [address] Hemoglobin (Bld) [Mass/Vol] 9.7 g/dL Low 13.0-16.5 [facility] Comment on above: Performed By: #### L 500.2500, L100.0100 ####[facility] [address] [place], [address] IG% 1.300 High 0.0-0.9 [facility] Comment on above: Result Comment: IG% - Immature Granulocytes (promyelocytes, myelocytes andmetamyelocytes) > 1% indicates that a LEFT SHIFT is Present. Performed By: #### L 500.2500, L100.0100 ####[facility] [address] [place], [address] Lymphocytes/100 WBC (Bld) 14.8 % Low 19-41 [facility] Comment on above: Performed By: #### L 500.2500, L100.0100 ####[facility] [address] [place], [address] MCH (RBC) [Entitic mass] 30.1 pg Normal 27.0-32.0 [facility] Comment on above: Performed By: #### L 500.2500, L100.0100 ####[facility] [address] [place], [address] MCHC (RBC) [Mass/Vol] 31.9 g/dL Low 32-36 [facility] Comment on above: Performed By: #### L 500.2500, L100.0100 ####[facility] [address] [place], [address] MCV (RBC) [Entitic vol] 94.4 fL High 80-94 [facility] Comment on above: Performed By: #### L 500.2500, L100.0100 ####[facility] [address], [address] Monocytes/100 WBC (Bld) 6.3 % Normal 0-10 [facility] Comment on above: Performed By: #### L 500.2500, L100.0100 ####[facility] [address] [place], [address] Neutrophils/100 WBC (Bld) 72.2 % High 47-70 [facility] Comment on above: Performed By: #### L 500.2500, L100.0100 ####[facility] [address] [place], [address] Nucleated RBC (Bld) [#/Vol] 0 10*3/uL Normal 0-5 [facility] Comment on above: Performed By: #### L 500.2500, L100.0100 ####[facility] [address], [address] Platelet mean volume (Bld) [Entitic vol] 9.6 fL Normal 6.2-12.0 [facility] Comment on above: Performed By: #### L 500.2500, L100.0100 ####[facility] [address] [place], [address] Platelets (Bld) [#/Vol] 428 10*3/uL Normal 150-450 [facility] Comment on above: Performed By: #### L 500.2500, L100.0100 ####[facility] [address] [place], [address] RBC (Bld) [#/Vol] 3.22 10*6/uL Low 4.6-6.2 [facility] Comment on above: Performed By: #### L 500.2500, L100.0100 ####[facility] [address] [place], [address] RDW SD 54.7 fl High 35.1-43.9 [facility] Comment on above: Performed By: #### L 500.2500, L100.0100 ####[facility] [address] [place], [address] WBC (Bld) [#/Vol] 14.9 10*3/uL High 4.4-11.0 [facility] Comment on above: Performed By: #### L 500.2500, L100.0100 ####[facility] [address] [place], [address] Bedside Glucoseon 12-22-2023 FINGERSTICK GLU 130 mg/dL High 74-106 [facility] Comment on above: Result Comment: SARAN DIEGOENT OF PATIENT CARE PER NURSING PROTOCOL Performed By: #### L 501.080 ####[facility] [address] [place], [address] Basic Metabolic Profile (BMP )on 12-21-2023 BUN Normal 7-18 [facility] Comment on above: Result Comment: Canc elled via OM: Order cancelled - Patient discharged Performed By: #### L 500.2500, L100.0100 ####[facility] [address] [place], [address] BUN/CRE Normal 10-20 [facility] Comment on above: Result Comment: Canc elled via OM: Order cancelled - Patient discharged Performed By: #### L 500.2500, L100.0100 ####[facility] [address] [place], [address] CA,Total Normal 8.5-10.1 [facility] Comment on above: Result Comment: Canc elled via OM: Order cancelled - Patient discharged Performed By: #### L 500.2500, L100.0100 ####[facility] [address] [place], [address] CL Normal 98-107 [facility] Comment on above: Result Comment: Canc elled via OM: Order cancelled - Patient discharged Performed By: #### L 500.2500, L100.0100 ####[facility] [address] [place], [address] CO2 Normal 21.0-32.0 [facility] Comment on above: Result Comment: Canc elled via OM: Order cancelled - Patient discharged Performed By: #### L 500.2500, L100.0100 ####[facility] [address] [place], [address] CREAT,SERUM Normal 0.70-1.30 [facility] Comment on above: Result Comment: Canc elled via OM: Order cancelled - Patient discharged Performed By: #### L 500.2500, L100.0100 ####[facility] [address] [place], [address] EST GFR Normal >60 [facility] Comment on above: Result Comment: Canc elled via OM: Order cancelled - Patient discharged Performed By: #### L 500.2500, L100.0100 ####[facility] [address] [place], [address] EST GFR - AA Normal >60 [facility] Comment on above: Result Comment: Canc elled via OM: Order cancelled - Patient discharged Performed By: #### L 500.2500, L100.0100 ####[facility] [address] [place], [address] GAP Normal 5-15 [facility] Comment on above: Result Comment: Canc elled via OM: Order cancelled - Patient discharged Performed By: #### L 500.2500, L100.0100 ####[facility] [address] [place], [address] GLU Normal 74-106 [facility] Comment on above: Result Comment: Canc elled via OM: Order cancelled - Patient discharged Performed By: #### L 500.2500, L100.0100 ####[facility] [address] [place], [address] Potassium Normal 3.5-5.1 [facility] Comment on above: Result Comment: Canc elled via OM: Order cancelled - Patient discharged Performed By: #### L 500.2500, L100.0100 ####[facility] [address] [place], [address] Basic Metabolic Profile (BMP) Normal 136-145 [facility] Comment on above: Result Comment: Canc elled via OM: Order cancelled - Patient discharged Performed By: #### L 500.2500, L100.0100 ####[facility] [address] [place], [address] Bedside Glucoseon 12-21-2023 FINGERSTICK GLU 109 mg/dL High 74-106 [facility] Comment on above: Result Comment: SARAN CECY OF PATIENT CARE PER NURSING PROTOCOL Performed By: #### L 501.080 ####[facility] [address] [place], [address] CBC W/Diff, Automatedon 10-0 9-4 Absolute Neut Normal 2.0-7.7 [facility] Comment on above: Result Comment: Canc elled via OM: Order cancelled - Patient discharged Performed By: #### L 500.2500, L100.0100 ####[facility] [address] [place], [address] HCT Normal 40-54 [facility] Comment on above: Result Comment: Canc elled via OM: Order cancelled - Patient discharged Performed By: #### L 500.2500, L100.0100 ####[facility] [address] [place], [address] HGB Normal 13.0-16.5 [facility] Comment on above: Result Comment: Canc elled via OM: Order cancelled - Patient discharged Performed By: #### L 500.2500, L100.0100 ####[facility] [address] [place], [address] MCH Normal 27.0-32.0 [facility] Comment on above: Result Comment: Canc elled via OM: Order cancelled - Patient discharged Performed By: #### L 500.2500, L100.0100 ####[facility] [address] [place], [address] MCHC Normal 32-36 [facility] Comment on above: Result Comment: Canc elled via OM: Order cancelled - Patient discharged Performed By: #### L 500.2500, L100.0100 ####[facility] [address] [place], [address] MCV Normal 80-94 [facility] Comment on above: Result Comment: Canc elled via OM: Order cancelled - Patient discharged Performed By: #### L 500.2500, L100.0100 ####[facility] [address] [place], [address] NEUT% Normal 47-70 [facility] Comment on above: Result Comment: Canc elled via OM: Order cancelled - Patient discharged Performed By: #### L 500.2500, L100.0100 ####[facility] [address] [place], [address] PLT Normal 150-450 [facility] Comment on above: Result Comment: Canc elled via OM: Order cancelled - Patient discharged Performed By: #### L 500.2500, L100.0100 ####[facility] [address] [place], [address] RBC Normal 4.6-6.2 [facility] Comment on above: Result Comment: Canc elled via OM: Order cancelled - Patient discharged Performed By: #### L 500.2500, L100.0100 ####[facility] [address] [place], [address] RDW CV Normal 11.6-14.6 [facility] Comment on above: Result Comment: Canc elled via OM: Order cancelled - Patient discharged Performed By: #### L 500.2500, L100.0100 ####[facility] [address] [place], [address] RDW SD Normal 35.1-43.9 [facility] Comment on above: Result Comment: Canc elled via OM: Order cancelled - Patient discharged Performed By: #### L 500.2500, L100.0100 ####[facility] [address] [place], [address] WBC Normal 4.4-11.0 [facility] Comment on above: Result Comment: Canc elled via OM: Order cancelled - Patient discharged Performed By: #### L 500.2500, L100.0100 ####[facility] [address] [place], [address] Basic Metabolic Profile (BMP )on 12-20-2023 BUN Normal 7-18 [facility] Comment on above: Result Comment: Canc elled via OM: Order cancelled - Patient discharged Performed By: #### L 500.2500, L100.0100 ####[facility] [address], [address] BUN/CRE Normal 10-20 [facility] Comment on above: Result Comment: Canc elled via OM: Order cancelled - Patient discharged Performed By: #### L 500.2500, L100.0100 ####[facility] [address] [place], [address] CA,Total Normal 8.5-10.1 [facility] Comment on above: Result Comment: Canc elled via OM: Order cancelled - Patient discharged Performed By: #### L 500.2500, L100.0100 ####[facility] [address] [place], [address] CL Normal 98-107 [facility] Comment on above: Result Comment: Canc elled via OM: Order cancelled - Patient discharged Performed By: #### L 500.2500, L100.0100 ####[facility] [address] [place], [address] CO2 Normal 21.0-32.0 [facility] Comment on above: Result Comment: Canc elled via OM: Order cancelled - Patient discharged Performed By: #### L 500.2500, L100.0100 ####[facility] [address] [place], [address] CREAT,SERUM Normal 0.70-1.30 [facility] Comment on above: Result Comment: Canc elled via OM: Order cancelled - Patient discharged Performed By: #### L 500.2500, L100.0100 ####[facility] [address] [place], [address] EST GFR Normal >60 [facility] Comment on above: Result Comment: Canc elled via OM: Order cancelled - Patient discharged Performed By: #### L 500.2500, L100.0100 ####[facility] [address] [place], [address] EST GFR - AA Normal >60 [facility] Comment on above: Result Comment: Canc elled via OM: Order cancelled - Patient discharged Performed By: #### L 500.2500, L100.0100 ####[facility] [address] [place], [address] GAP Normal 5-15 [facility] Comment on above: Result Comment: Canc elled via OM: Order cancelled - Patient discharged Performed By: #### L 500.2500, L100.0100 ####[facility] [address] [place], [address] GLU Normal 74-106 [facility] Comment on above: Result Comment: Canc elled via OM: Order cancelled - Patient discharged Performed By: #### L 500.2500, L100.0100 ####[facility] [address] [place], [address] Potassium Normal 3.5-5.1 [facility] Comment on above: Result Comment: Canc elled via OM: Order cancelled - Patient discharged Performed By: #### L 500.2500, L100.0100 ####[facility] [address] [place], [address] Basic Metabolic Profile (BMP) Normal 136-145 [facility] Comment on above: Result Comment: Canc elled via OM: Order cancelled - Patient discharged Performed By: #### L 500.2500, L100.0100 ####[facility] [address] [place], [address] Bedside Glucoseon 12-20-2023 FINGERSTICK GLU 167 mg/dL High 74-106 [facility] Comment on above: Result Comment: SARAN SAM OF PATIENT CARE PER NURSING PROTOCOL Performed By: #### L 501.080 ####[facility] [address] [place], [address] CBC W/Diff, Automatedon 10-0 -2023 Absolute Neut Normal 2.0-7.7 [facility] Comment on above: Result Comment: Canc elled via OM: Order cancelled - Patient discharged Performed By: #### L 500.2500, L100.0100 ####[facility] [address] [place], [address] HCT Normal 40-54 [facility] Comment on above: Result Comment: Canc elled via OM: Order cancelled - Patient discharged Performed By: #### L 500.2500, L100.0100 ####[facility] [address] [place], [address] HGB Normal 13.0-16.5 [facility] Comment on above: Result Comment: Canc elled via OM: Order cancelled - Patient discharged Performed By: #### L 500.2500, L100.0100 ####[facility] [address] [place], [address] MCH Normal 27.0-32.0 [facility] Comment on above: Result Comment: Canc elled via OM: Order cancelled - Patient discharged Performed By: #### L 500.2500, L100.0100 ####[facility] [address] [place], [address] MCHC Normal 32-36 [facility] Comment on above: Result Comment: Canc elled via OM: Order cancelled - Patient discharged Performed By: #### L 500.2500, L100.0100 ####[facility] [address] [place], [address] MCV Normal 80-94 [facility] Comment on above: Result Comment: Canc elled via OM: Order cancelled - Patient discharged Performed By: #### L 500.2500, L100.0100 ####[facility] [address] [place], [address] NEUT% Normal 47-70 [facility] Comment on above: Result Comment: Canc elled via OM: Order cancelled - Patient discharged Performed By: #### L 500.2500, L100.0100 ####[facility] [address] [place], [address] PLT Normal 150-450 [facility] Comment on above: Result Comment: Canc elled via OM: Order cancelled - Patient discharged Performed By: #### L 500.2500, L100.0100 ####[facility] [address] [place], [address] RBC Normal 4.6-6.2 [facility] Comment on above: Result Comment: Canc elled via OM: Order cancelled - Patient discharged Performed By: #### L 500.2500, L100.0100 ####[facility] [address] [place], [address] RDW CV Normal 11.6-14.6 [facility] Comment on above: Result Comment: Canc elled via OM: Order cancelled - Patient discharged Performed By: #### L 500.2500, L100.0100 ####[facility] [address] [place], [address] RDW SD Normal 35.1-43.9 [facility] Comment on above: Result Comment: Canc elled via OM: Order cancelled - Patient discharged Performed By: #### L 500.2500, L100.0100 ####[facility] [address] [place], [address] WBC Normal 4.4-11.0 [facility] Comment on above: Result Comment: Canc elled via OM: Order cancelled - Patient discharged Performed By: #### L 500.2500, L100.0100 ####[facility] [address] [place], [address] COVID 19 AG RAPID (RN MOHSEN Swanson)on 12-20-2023 SARS-CoV-2 (COVID-19) RNA GONSALO+probe Ql (Unsp spec) Normal [facility] Comment on above: Performed By: #### M 100.505 ####[facility] [address] [place], [address] Basic Metabolic Profile (BMP )on 12-19-2023 BUN Normal 7-18 [facility] Comment on above: Result Comment: Canc elled via OM: Order cancelled - Patient discharged Performed By: #### L 100.0100, L500.2500 ####[facility] [address] [place], [address] BUN/CRE Normal 10-20 [facility] Comment on above: Result Comment: Canc elled via OM: Order cancelled - Patient discharged Performed By: #### L 100.0100, L500.2500 ####[facility] [address] [place], [address] CA,Total Normal 8.5-10.1 [facility] Comment on above: Result Comment: Canc elled via OM: Order cancelled - Patient discharged Performed By: #### L 100.0100, L500.2500 ####[facility] [address] [place], [address] CL Normal 98-107 [facility] Comment on above: Result Comment: Canc elled via OM: Order cancelled - Patient discharged Performed By: #### L 100.0100, L500.2500 ####[facility] [address] [place], [address] CO2 Normal 21.0-32.0 [facility] Comment on above: Result Comment: Canc elled via OM: Order cancelled - Patient discharged Performed By: #### L 100.0100, L500.2500 ####[facility] [address] [place], [address] CREAT,SERUM Normal 0.70-1.30 [facility] Comment on above: Result Comment: Canc elled via OM: Order cancelled - Patient discharged Performed By: #### L 100.0100, L500.2500 ####[facility] [address] [place], [address] EST GFR Normal >60 [facility] Comment on above: Result Comment: Canc elled via OM: Order cancelled - Patient discharged Performed By: #### L 100.0100, L500.2500 ####[facility] [address] [place], [address] EST GFR - AA Normal >60 [facility] Comment on above: Result Comment: Canc elled via OM: Order cancelled - Patient discharged Performed By: #### L 100.0100, L500.2500 ####[facility] [address] [place], [address] GAP Normal 5-15 [facility] Comment on above: Result Comment: Canc elled via OM: Order cancelled - Patient discharged Performed By: #### L 100.0100, L500.2500 ####[facility] [address] [place], [address] GLU Normal 74-106 [facility] Comment on above: Result Comment: Canc elled via OM: Order cancelled - Patient discharged Performed By: #### L 100.0100, L500.2500 ####[facility] [address] [place], [address] Potassium Normal 3.5-5.1 [facility] Comment on above: Result Comment: Canc elled via OM: Order cancelled - Patient discharged Performed By: #### L 100.0100, L500.2500 ####[facility] [address] [place], [address] Basic Metabolic Profile (BMP) Normal 136-145 [facility] Comment on above: Result Comment: Canc elled via OM: Order cancelled - Patient discharged Performed By: #### L 100.0100, L500.2500 ####[facility] [address] [place], [address] Bedside Glucoseon 12-19-2023 FINGERSTICK GLU 165 mg/dL High 74-106 [facility] Comment on above: Result Comment: SARAN SAM OF PATIENT CARE PER NURSING PROTOCOL Performed By: #### L 501.080 ####[facility] [address] [place], [address] CBC W/Diff, Automatedon Absolute Neut Normal 2.0-7.7 [facility] Comment on above: Result Comment: Canc elled via OM: Order cancelled - Patient discharged Performed By: #### L 100.0100, L500.2500 ####[facility] [address] [place], [address] HCT Normal 40-54 [facility] Comment on above: Result Comment: Canc elled via OM: Order cancelled - Patient discharged Performed By: #### L 100.0100, L500.2500 ####[facility] [address] [place], [address] HGB Normal 13.0-16.5 [facility] Comment on above: Result Comment: Canc elled via OM: Order cancelled - Patient discharged Performed By: #### L 100.0100, L500.2500 ####[facility] [address] [place], [address] MCH Normal 27.0-32.0 [facility] Comment on above: Result Comment: Canc elled via OM: Order cancelled - Patient discharged Performed By: #### L 100.0100, L500.2500 ####[facility] [address] [place], [address] MCHC Normal 32-36 [facility] Comment on above: Result Comment: Canc elled via OM: Order cancelled - Patient discharged Performed By: #### L 100.0100, L500.2500 ####[facility] [address] [place], [address] MCV Normal 80-94 [facility] Comment on above: Result Comment: Canc elled via OM: Order cancelled - Patient discharged Performed By: #### L 100.0100, L500.2500 ####[facility] [address] [place], [address] NEUT% Normal 47-70 [facility] Comment on above: Result Comment: Canc elled via OM: Order cancelled - Patient discharged Performed By: #### L 100.0100, L500.2500 ####[facility] [address] [place], [address] PLT Normal 150-450 [facility] Comment on above: Result Comment: Canc elled via OM: Order cancelled - Patient discharged Performed By: #### L 100.0100, L500.2500 ####[facility] [address] [place], [address] RBC Normal 4.6-6.2 [facility] Comment on above: Result Comment: Canc elled via OM: Order cancelled - Patient discharged Performed By: #### L 100.0100, L500.2500 ####[facility] [address] [place], [address] RDW CV Normal 11.6-14.6 [facility] Comment on above: Result Comment: Canc elled via OM: Order cancelled - Patient discharged Performed By: #### L 100.0100, L500.2500 ####[facility] [address] [place], [address] RDW SD Normal 35.1-43.9 [facility] Comment on above: Result Comment: Canc elled via OM: Order cancelled - Patient discharged Performed By: #### L 100.0100, L500.2500 ####[facility] [address] [place], [address] WBC Normal 4.4-11.0 [facility] Comment on above: Result Comment: Canc elled via OM: Order cancelled - Patient discharged Performed By: #### L 100.0100, L500.2500 ####[facility] [address] [place], [address] Basic Metabolic Profile (BMP )on 12-18-2023 BUN Normal 7-18 [facility] Comment on above: Result Comment: Canc elled via OM: Order cancelled - Patient discharged Performed By: #### L 500.2500, L100.0100 ####[facility] [address] [place], [address] BUN/CRE Normal 10-20 [facility] Comment on above: Result Comment: Canc elled via OM: Order cancelled - Patient discharged Performed By: #### L 500.2500, L100.0100 ####[facility] [address] [place], [address] CA,Total Normal 8.5-10.1 [facility] Comment on above: Result Comment: Canc elled via OM: Order cancelled - Patient discharged Performed By: #### L 500.2500, L100.0100 ####[facility] [address] [place], [address] CL Normal 98-107 [facility] Comment on above: Result Comment: Canc elled via OM: Order cancelled - Patient discharged Performed By: #### L 500.2500, L100.0100 ####[facility] [address] [place], [address] CO2 Normal 21.0-32.0 [facility] Comment on above: Result Comment: Canc elled via OM: Order cancelled - Patient discharged Performed By: #### L 500.2500, L100.0100 ####[facility] [address] [place], [address] CREAT,SERUM Normal 0.70-1.30 [facility] Comment on above: Result Comment: Canc elled via OM: Order cancelled - Patient discharged Performed By: #### L 500.2500, L100.0100 ####[facility] [address] [place], [address] EST GFR Normal >60 [facility] Comment on above: Result Comment: Canc elled via OM: Order cancelled - Patient discharged Performed By: #### L 500.2500, L100.0100 ####[facility] [address] [place], [address] EST GFR - AA Normal >60 [facility] Comment on above: Result Comment: Canc elled via OM: Order cancelled - Patient discharged Performed By: #### L 500.2500, L100.0100 ####[facility] [address] [place], [address] GAP Normal 5-15 [facility] Comment on above: Result Comment: Canc elled via OM: Order cancelled - Patient discharged Performed By: #### L 500.2500, L100.0100 ####[facility] [address] [place], [address] GLU Normal 74-106 [facility] Comment on above: Result Comment: Canc elled via OM: Order cancelled - Patient discharged Performed By: #### L 500.2500, L100.0100 ####[facility] [address] [place], [address] Potassium Normal 3.5-5.1 [facility] Comment on above: Result Comment: Canc elled via OM: Order cancelled - Patient discharged Performed By: #### L 500.2500, L100.0100 ####[facility] [address] [place], [address] Basic Metabolic Profile (BMP) Normal 136-145 [facility] Comment on above: Result Comment: Canc elled via OM: Order cancelled - Patient discharged Performed By: #### L 500.2500, L100.0100 ####[facility] [address] [place], [address] Bedside Glucoseon 12-18-2023 FINGERSTICK GLU 186 mg/dL High 74-106 [facility] Comment on above: Result Comment: SARAN SAM OF PATIENT CARE PER NURSING PROTOCOL Performed By: #### L 501.080 ####[facility] [address] [place], [address] CBC W/Diff, Automatedon 100 Absolute Neut Normal 2.0-7.7 [facility] Comment on above: Result Comment: Canc elled via OM: Order cancelled - Patient discharged Performed By: #### L 500.2500, L100.0100 ####[facility] [address] [place], [address] HCT Normal 40-54 [facility] Comment on above: Result Comment: Canc elled via OM: Order cancelled - Patient discharged Performed By: #### L 500.2500, L100.0100 ####[facility] [address] [place], [address] HGB Normal 13.0-16.5 [facility] Comment on above: Result Comment: Canc elled via OM: Order cancelled - Patient discharged Performed By: #### L 500.2500, L100.0100 ####[facility] [address] [place], [address] MCH Normal 27.0-32.0 [facility] Comment on above: Result Comment: Canc elled via OM: Order cancelled - Patient discharged Performed By: #### L 500.2500, L100.0100 ####[facility] [address] [place], [address] MCHC Normal 32-36 [facility] Comment on above: Result Comment: Canc elled via OM: Order cancelled - Patient discharged Performed By: #### L 500.2500, L100.0100 ####[facility] [address] [place], [address] MCV Normal 80-94 [facility] Comment on above: Result Comment: Canc elled via OM: Order cancelled - Patient discharged Performed By: #### L 500.2500, L100.0100 ####[facility] [address] [place], [address] NEUT% Normal 47-70 [facility] Comment on above: Result Comment: Canc elled via OM: Order cancelled - Patient discharged Performed By: #### L 500.2500, L100.0100 ####[facility] [address] [place], [address] PLT Normal 150-450 [facility] Comment on above: Result Comment: Canc elled via OM: Order cancelled - Patient discharged Performed By: #### L 500.2500, L100.0100 ####[facility] [address] [place], [address] RBC Normal 4.6-6.2 [facility] Comment on above: Result Comment: Canc elled via OM: Order cancelled - Patient discharged Performed By: #### L 500.2500, L100.0100 ####[facility] [address] [place], [address] RDW CV Normal 11.6-14.6 [facility] Comment on above: Result Comment: Canc elled via OM: Order cancelled - Patient discharged Performed By: #### L 500.2500, L100.0100 ####[facility] [address] [place], [address] RDW SD Normal 35.1-43.9 [facility] Comment on above: Result Comment: Canc elled via OM: Order cancelled - Patient discharged Performed By: #### L 500.2500, L100.0100 ####[facility] [address] [place], [address] WBC Normal 4.4-11.0 [facility] Comment on above: Result Comment: Canc elled via OM: Order cancelled - Patient discharged Performed By: #### L 500.2500, L100.0100 ####[facility] [address] [place], [address] Basic Metabolic Profile (BMP )on 12-17-2023 BUN Normal - [facility] Comment on above: Result Comment: Canc elled via OM: Order cancelled - Patient discharged Performed By: #### L 500.2500, L100.0100 ####[facility] [address] [place], [address] BUN/CRE Normal - [facility] Comment on above: Result Comment: Canc elled via OM: Order cancelled - Patient discharged Performed By: #### L 500.2500, L100.0100 ####[facility] [address] [place], [address] CA,Total Normal 8.5-10.1 [facility] Comment on above: Result Comment: Canc elled via OM: Order cancelled - Patient discharged Performed By: #### L 500.2500, L100.0100 ####[facility] [address] [place], [address] CL Normal 98-107 [facility] Comment on above: Result Comment: Canc elled via OM: Order cancelled - Patient discharged Performed By: #### L 500.2500, L100.0100 ####[facility] [address] [place], [address] CO2 Normal 21.0-32.0 [facility] Comment on above: Result Comment: Canc elled via OM: Order cancelled - Patient discharged Performed By: #### L 500.2500, L100.0100 ####[facility] [address] [place], [address] CREAT,SERUM Normal 0.70-1.30 [facility] Comment on above: Result Comment: Canc elled via OM: Order cancelled - Patient discharged Performed By: #### L 500.2500, L100.0100 ####[facility] [address], [address] EST GFR Normal >60 [facility] Comment on above: Result Comment: Canc elled via OM: Order cancelled - Patient discharged Performed By: #### L 500.2500, L100.0100 ####[facility] [address] [place], [address] EST GFR - AA Normal >60 [facility] Comment on above: Result Comment: Canc elled via OM: Order cancelled - Patient discharged Performed By: #### L 500.2500, L100.0100 ####[facility] [address] [place], [address] GAP Normal 5-15 [facility] Comment on above: Result Comment: Canc elled via OM: Order cancelled - Patient discharged Performed By: #### L 500.2500, L100.0100 ####[facility] [address] [place], [address] GLU Normal 74-106 [facility] Comment on above: Result Comment: Canc elled via OM: Order cancelled - Patient discharged Performed By: #### L 500.2500, L100.0100 ####[facility] [address] [place], [address] Potassium Normal 3.5-5.1 [facility] Comment on above: Result Comment: Canc elled via OM: Order cancelled - Patient discharged Performed By: #### L 500.2500, L100.0100 ####[facility] [address] [place], [address] Basic Metabolic Profile (BMP) Normal 136-145 [facility] Comment on above: Result Comment: Canc elled via OM: Order cancelled - Patient discharged Performed By: #### L 500.2500, L100.0100 ####[facility] [address] [place], [address] Bedside Glucoseon 12-17-2023 FINGERSTICK GLU 181 mg/dL High 74-106 [facility] Comment on above: Result Comment: SARAN SAM OF PATIENT CARE PER NURSING PROTOCOL Performed By: #### L 501.080 ####[facility] [address] [place], [address] CBC W/Diff, Automatedon Absolute Neut Normal 2.0-7.7 [facility] Comment on above: Result Comment: Canc elled via OM: Order cancelled - Patient discharged Performed By: #### L 500.2500, L100.0100 ####[facility] [address] [place], [address] HCT Normal 40-54 [facility] Comment on above: Result Comment: Canc elled via OM: Order cancelled - Patient discharged Performed By: #### L 500.2500, L100.0100 ####[facility] [address] [place], [address] HGB Normal 13.0-16.5 [facility] Comment on above: Result Comment: Canc elled via OM: Order cancelled - Patient discharged Performed By: #### L 500.2500, L100.0100 ####[facility] [address] [place], [address] MCH Normal 27.0-32.0 [facility] Comment on above: Result Comment: Canc elled via OM: Order cancelled - Patient discharged Performed By: #### L 500.2500, L100.0100 ####[facility] [address] [place], [address] MCHC Normal 32-36 [facility] Comment on above: Result Comment: Canc elled via OM: Order cancelled - Patient discharged Performed By: #### L 500.2500, L100.0100 ####[facility] [address] [place], [address] MCV Normal 80-94 [facility] Comment on above: Result Comment: Canc elled via OM: Order cancelled - Patient discharged Performed By: #### L 500.2500, L100.0100 ####[facility] [address] [place], [address] NEUT% Normal 47-70 [facility] Comment on above: Result Comment: Canc elled via OM: Order cancelled - Patient discharged Performed By: #### L 500.2500, L100.0100 ####[facility] [address] [place], [address] PLT Normal 150-450 [facility] Comment on above: Result Comment: Canc elled via OM: Order cancelled - Patient discharged Performed By: #### L 500.2500, L100.0100 ####[facility] [address] [place], [address] RBC Normal 4.6-6.2 [facility] Comment on above: Result Comment: Canc elled via OM: Order cancelled - Patient discharged Performed By: #### L 500.2500, L100.0100 ####[facility] [address] [place], [address] RDW CV Normal 11.6-14.6 [facility] Comment on above: Result Comment: Canc elled via OM: Order cancelled - Patient discharged Performed By: #### L 500.2500, L100.0100 ####[facility] [address] [place], [address] RDW SD Normal 35.1-43.9 [facility] Comment on above: Result Comment: Canc elled via OM: Order cancelled - Patient discharged Performed By: #### L 500.2500, L100.0100 ####[facility] [address] [place], [address] WBC Normal 4.4-11.0 [facility] Comment on above: Result Comment: Canc elled via OM: Order cancelled - Patient discharged Performed By: #### L 500.2500, L100.0100 ####[facility] [address] [place], [address] Basic Metabolic Profile (BMP )on 12-16-2023 BUN/CRE 22.5 RATIO High 10-20 [facility] Comment on above: Performed By: #### L 100.0100, L500.2500 ####[facility] [address] [place], [address] CA,Total 9.0 mg/dL Normal 8.5-10.1 [facility] Comment on above: Performed By: #### L 100.0100, L500.2500 ####[facility] [address] [place], [address] Chloride [Moles/Vol] 109 mmol/L High 98-107 [facility] Comment on above: Performed By: #### L 100.0100, L500.2500 ####[facility] [address] [place], [address] CO2 [Moles/Vol] 30.0 mmol/L Normal 21.0-32.0 [facility] Comment on above: Performed By: #### L 100.0100, L500.2500 ####[facility] [address] [place], [address] Creatinine [Mass/Vol] 1.51 mg/dL High 0.70-1.30 [facility] Comment on above: Result Comment: The validity of the calculated GFR GFRAA in patients over70 years has not been determined. Clinical correlation isessential. Performed By: #### L 100.0100, L500.2500 ####[facility] [address] [place], [address] ECRCL 39.97 ml/min Normal [facility] Comment on above: Performed By: #### L 100.0100, L500.2500 ####[facility] [address] [place], [address] EST GFR - AA 57 mL/min Low >60 [facility] Comment on above: Result Comment: Afri can Sudanese GFR Calc Performed By: #### L 100.0100, L500.2500 ####[facility] [address] [place], [address] GAP 4 Low 5-15 [facility] Comment on above: Performed By: #### L 100.0100, L500.2500 ####[facility] [address] [place], [address] GFR/1.73 sq M.predicted among non-blacks MDRD (S/P/Bld) [Vol rate/Area] 47 mL/min/{1.73_m2} Low >60 [facility] Comment on above: Result Comment: Non- GFR Calc Performed By: #### L 100.0100, L500.2500 ####[facility] [address] [place], [address] Glucose [Mass/Vol] 163 mg/dL High 74-106 [facility] Comment on above: Result Comment: Fast ing Glucose result greater than or equal to 126 mg/dLsuggests DIABETES MELLITUS per A.D.A. criteria. Performed By: #### L 100.0100, L500.2500 ####[facility] [address] [place], [address] Potassium [Moles/Vol] 3.7 mmol/L Normal 3.5-5.1 [facility] Comment on above: Performed By: #### L 100.0100, L500.2500 ####[facility] [address] [place], [address] Sodium [Moles/Vol] 143 mmol/L Normal 136-145 [facility] Comment on above: Performed By: #### L 100.0100, L500.2500 ####[facility] [address] [place], [address] Urea nitrogen [Mass/Vol] 34 mg/dL High 7-18 [facility] Comment on above: Performed By: #### L 100.0100, L500.2500 ####[facility] [address] [place], [address] BUN Normal 7-18 [facility] Comment on above: Result Comment: Canc elled via OM: Order cancelled - Patient discharged Performed By: #### L 500.2500, L100.0100 ####[facility] [address] [place], [address] BUN/CRE Normal 10-20 [facility] Comment on above: Result Comment: Canc elled via OM: Order cancelled - Patient discharged Performed By: #### L 500.2500, L100.0100 ####[facility] [address] [place], [address] CA,Total Normal 8.5-10.1 [facility] Comment on above: Result Comment: Canc elled via OM: Order cancelled - Patient discharged Performed By: #### L 500.2500, L100.0100 ####[facility] [address], [address] CL Normal 98-107 [facility] Comment on above: Result Comment: Canc elled via OM: Order cancelled - Patient discharged Performed By: #### L 500.2500, L100.0100 ####[facility] [address] [place], [address] CO2 Normal 21.0-32.0 [facility] Comment on above: Result Comment: Canc elled via OM: Order cancelled - Patient discharged Performed By: #### L 500.2500, L100.0100 ####[facility] [address] [place], [address] CREAT,SERUM Normal 0.70-1.30 [facility] Comment on above: Result Comment: Canc elled via OM: Order cancelled - Patient discharged Performed By: #### L 500.2500, L100.0100 ####[facility] [address] [place], [address] EST GFR Normal >60 [facility] Comment on above: Result Comment: Canc elled via OM: Order cancelled - Patient discharged Performed By: #### L 500.2500, L100.0100 ####[facility] [address] [place], [address] EST GFR - AA Normal >60 [facility] Comment on above: Result Comment: Canc elled via OM: Order cancelled - Patient discharged Performed By: #### L 500.2500, L100.0100 ####[facility] [address] [place], [address] GAP Normal 5-15 [facility] Comment on above: Result Comment: Canc elled via OM: Order cancelled - Patient discharged Performed By: #### L 500.2500, L100.0100 ####[facility] [address] [place], [address] GLU Normal 74-106 [facility] Comment on above: Result Comment: Canc elled via OM: Order cancelled - Patient discharged Performed By: #### L 500.2500, L100.0100 ####[facility] [address] [place], [address] Potassium Normal 3.5-5.1 [facility] Comment on above: Result Comment: Canc elled via OM: Order cancelled - Patient discharged Performed By: #### L 500.2500, L100.0100 ####[facility] [address] [place], [address] Basic Metabolic Profile (BMP) Normal 136-145 [facility] Comment on above: Result Comment: Canc elled via OM: Order cancelled - Patient discharged Performed By: #### L 500.2500, L100.0100 ####[facility] [address] [place], [address] Bedside Glucoseon 12-16-2023 FINGERSTICK GLU 155 mg/dL High 74-106 [facility] Comment on above: Result Comment: SARAN SAM OF PATIENT CARE PER NURSING PROTOCOL Performed By: #### L 501.080 ####[facility] [address] [place], [address] CBC W/Diff, Automatedon 10-0 Absolute Lymph 1.24 X10 3/uL Normal 0.83-4.51 [facility] Comment on above: Performed By: #### L 100.0100, L500.2500 ####[facility] [address] [place], [address] Absolute Neut 5.3 X10 3/uL Normal 2.0-7.7 [facility] Comment on above: Performed By: #### L 100.0100, L500.2500 ####[facility] [address] [place], [address] Basophils/100 WBC (Bld) 1.0 % Normal 0-1 [facility] Comment on above: Performed By: #### L 100.0100, L500.2500 ####[facility] [address] [place], [address] Eosinophils/100 WBC (Bld) 6.2 % High 0-5 [facility] Comment on above: Performed By: #### L 100.0100, L500.2500 ####[facility] [address] [place], [address] Erythrocyte distribution width (RBC) [Ratio] 15.9 % High 11.6-14.6 [facility] Comment on above: Performed By: #### L 100.0100, L500.2500 ####[facility] [address] [place], [address] Hematocrit (Bld) [Volume fraction] 29.7 % Low 40-54 [facility] Comment on above: Performed By: #### L 100.0100, L500.2500 ####[facility] [address] [place], [address] Hemoglobin (Bld) [Mass/Vol] 9.5 g/dL Low 13.0-16.5 [facility] Comment on above: Performed By: #### L 100.0100, L500.2500 ####[facility] [address] [place], [address] IG% 0.700 Normal 0.0-0.9 [facility] Comment on above: Result Comment: IG% - Immature Granulocytes (promyelocytes, myelocytes andmetamyelocytes) > 1% indicates that a LEFT SHIFT is Present. Performed By: #### L 100.0100, L500.2500 ####[facility] [address] [place], [address] Lymphocytes/100 WBC (Bld) 15.3 % Low 19-41 [facility] Comment on above: Performed By: #### L 100.0100, L500.2500 ####[facility] [address] [place], [address] MCH (RBC) [Entitic mass] 30.1 pg Normal 27.0-32.0 [facility] Comment on above: Performed By: #### L 100.0100, L500.2500 ####[facility] [address] [place], [address] MCHC (RBC) [Mass/Vol] 32.0 g/dL Normal 32-36 [facility] Comment on above: Performed By: #### L 100.0100, L500.2500 ####[facility] [address] [place], [address] MCV (RBC) [Entitic vol] 94.0 fL Normal 80-94 [facility] Comment on above: Performed By: #### L 100.0100, L500.2500 ####[facility] [address] [place], [address] Monocytes/100 WBC (Bld) 10.9 % High 0-10 [facility] Comment on above: Performed By: #### L 100.0100, L500.2500 ####[facility] [address] [place], [address] Neutrophils/100 WBC (Bld) 65.9 % Normal 47-70 [facility] Comment on above: Performed By: #### L 100.0100, L500.2500 ####[facility] [address] [place], [address] Nucleated RBC (Bld) [#/Vol] 0 10*3/uL Normal 0-5 [facility] Comment on above: Performed By: #### L 100.0100, L500.2500 ####[facility] [address] [place], [address] Platelet mean volume (Bld) [Entitic vol] 10.2 fL Normal 6.2-12.0 [facility] Comment on above: Performed By: #### L 100.0100, L500.2500 ####[facility] [address] [place], [address] Platelets (Bld) [#/Vol] 247 10*3/uL Normal 150-450 [facility] Comment on above: Performed By: #### L 100.0100, L500.2500 ####[facility] [address] [place], [address] RBC (Bld) [#/Vol] 3.16 10*6/uL Low 4.6-6.2 [facility] Comment on above: Performed By: #### L 100.0100, L500.2500 ####[facility] [address] [place], [address] RDW SD 54.6 fl High 35.1-43.9 [facility] Comment on above: Performed By: #### L 100.0100, L500.2500 ####[facility] [address] [place], [address] WBC (Bld) [#/Vol] 8.1 10*3/uL Normal 4.4-11.0 [facility] Comment on above: Performed By: #### L 100.0100, L500.2500 ####[facility] [address] [place], [address] Absolute Neut Normal 2.0-7.7 [facility] Comment on above: Result Comment: Canc elled via OM: Order cancelled - Patient discharged Performed By: #### L 500.2500, L100.0100 ####[facility] [address] [place], [address] HCT Normal 40-54 [facility] Comment on above: Result Comment: Canc elled via OM: Order cancelled - Patient discharged Performed By: #### L 500.2500, L100.0100 ####[facility] [address] [place], [address] HGB Normal 13.0-16.5 [facility] Comment on above: Result Comment: Canc elled via OM: Order cancelled - Patient discharged Performed By: #### L 500.2500, L100.0100 ####[facility] [address] [place], [address] MCH Normal 27.0-32.0 [facility] Comment on above: Result Comment: Canc elled via OM: Order cancelled - Patient discharged Performed By: #### L 500.2500, L100.0100 ####[facility] [address] [place], [address] MCHC Normal 32-36 [facility] Comment on above: Result Comment: Canc elled via OM: Order cancelled - Patient discharged Performed By: #### L 500.2500, L100.0100 ####[facility] [address] [place], [address] MCV Normal 80-94 [facility] Comment on above: Result Comment: Canc elled via OM: Order cancelled - Patient discharged Performed By: #### L 500.2500, L100.0100 ####[facility] [address] [place], [address] NEUT% Normal 47-70 [facility] Comment on above: Result Comment: Canc elled via OM: Order cancelled - Patient discharged Performed By: #### L 500.2500, L100.0100 ####[facility] [address] [place], [address] PLT Normal 150-450 [facility] Comment on above: Result Comment: Canc elled via OM: Order cancelled - Patient discharged Performed By: #### L 500.2500, L100.0100 ####[facility] [address] [place], [address] RBC Normal 4.6-6.2 [facility] Comment on above: Result Comment: Canc elled via OM: Order cancelled - Patient discharged Performed By: #### L 500.2500, L100.0100 ####[facility] [address] [place], [address] RDW CV Normal 11.6-14.6 [facility] Comment on above: Result Comment: Canc elled via OM: Order cancelled - Patient discharged Performed By: #### L 500.2500, L100.0100 ####[facility] [address] [place], [address] RDW SD Normal 35.1-43.9 [facility] Comment on above: Result Comment: Canc elled via OM: Order cancelled - Patient discharged Performed By: #### L 500.2500, L100.0100 ####[facility] [address] [place], [address] WBC Normal 4.4-11.0 [facility] Comment on above: Result Comment: Canc elled via OM: Order cancelled - Patient discharged Performed By: #### L 500.2500, L100.0100 ####[facility] [address] [place], [address] Basic Metabolic Profile (BMP )on 12-15-2023 BUN/CRE 20.4 RATIO High 12-31 [facility] Comment on above: Performed By: #### L 100.0100, L500.2500 ####[facility] [address] [place], [address] CA,Total 9.0 mg/dL Normal 8.5-10.1 [facility] Comment on above: Performed By: #### L 100.0100, L500.2500 ####[facility] [address] [place], [address] Chloride [Moles/Vol] 106 mmol/L Normal 98-107 [facility] Comment on above: Performed By: #### L 100.0100, L500.2500 ####[facility] [address] [place], [address] CO2 [Moles/Vol] 32.0 mmol/L Normal 21.0-32.0 [facility] Comment on above: Performed By: #### L 100.0100, L500.2500 ####[facility] [address] [place], [address] Creatinine [Mass/Vol] 1.81 mg/dL High 0.70-1.30 [facility] Comment on above: Result Comment: The validity of the calculated GFR GFRAA in patients over70 years has not been determined. Clinical correlation isessential. Performed By: #### L 100.0100, L500.2500 ####[facility] [address] [place], [address] ECRCL 33.35 ml/min Normal [facility] Comment on above: Performed By: #### L 100.0100, L500.2500 ####[facility] [address] [place], [address] EST GFR - AA 46 mL/min Low >60 [facility] Comment on above: Result Comment: Afri can Sudanese GFR Calc Performed By: #### L 100.0100, L500.2500 ####[facility] [address] [place], [address] GAP 3 Low 5-15 [facility] Comment on above: Performed By: #### L 100.0100, L500.2500 ####[facility] [address] [place], [address] GFR/1.73 sq M.predicted among non-blacks MDRD (S/P/Bld) [Vol rate/Area] 38 mL/min/{1.73_m2} Low >60 [facility] Comment on above: Result Comment: Non- GFR Calc Performed By: #### L 100.0100, L500.2500 ####[facility] [address] [place], [address] Glucose [Mass/Vol] 137 mg/dL High 74-106 [facility] Comment on above: Result Comment: Fast ing Glucose result greater than or equal to 126 mg/dLsuggests DIABETES MELLITUS per A.D.A. criteria. Performed By: #### L 100.0100, L500.2500 ####[facility] [address] [place], [address] Potassium [Moles/Vol] 3.4 mmol/L Low 3.5-5.1 [facility] Comment on above: Performed By: #### L 100.0100, L500.2500 ####[facility] [address] [place], [address] Sodium [Moles/Vol] 141 mmol/L Normal 136-145 [facility] Comment on above: Performed By: #### L 100.0100, L500.2500 ####[facility] [address] [place], [address] Urea nitrogen [Mass/Vol] 37 mg/dL High 7-18 [facility] Comment on above: Performed By: #### L 100.0100, L500.2500 ####[facility] [address] [place], [address] Bedside Glucoseon 12-15-2023 FINGERSTICK GLU 246 mg/dL High 74-106 [facility] Comment on above: Result Comment: SARAN DIEGOENT OF PATIENT CARE PER NURSING PROTOCOL Performed By: #### L 501.080 ####[facility] [address] [place], [address] CBC W/Diff, Automatedon 10-0 Absolute Lymph 1.22 X10 3/uL Normal 0.83-4.51 [facility] Comment on above: Performed By: #### L 100.0100, L500.2500 ####[facility] [address] [place], [address] Absolute Neut 6.6 X10 3/uL Normal 2.0-7.7 [facility] Comment on above: Performed By: #### L 100.0100, L500.2500 ####[facility] [address] [place], [address] Basophils/100 WBC (Bld) 0.6 % Normal 0-1 [facility] Comment on above: Performed By: #### L 100.0100, L500.2500 ####[facility] [address] [place], [address] Eosinophils/100 WBC (Bld) 4.9 % Normal 0-5 [facility] Comment on above: Performed By: #### L 100.0100, L500.2500 ####[facility] [address] [place], [address] Erythrocyte distribution width (RBC) [Ratio] 15.9 % High 11.6-14.6 [facility] Comment on above: Performed By: #### L 100.0100, L500.2500 ####[facility] [address] [place], [address] Hematocrit (Bld) [Volume fraction] 28.0 % Low 40-54 [facility] Comment on above: Performed By: #### L 100.0100, L500.2500 ####[facility] [address] [place], [address] Hemoglobin (Bld) [Mass/Vol] 9.3 g/dL Low 13.0-16.5 [facility] Comment on above: Performed By: #### L 100.0100, L500.2500 ####[facility] [address] [place], [address] IG% 0.500 Normal 0.0-0.9 [facility] Comment on above: Result Comment: IG% - Immature Granulocytes (promyelocytes, myelocytes andmetamyelocytes) > 1% indicates that a LEFT SHIFT is Present. Performed By: #### L 100.0100, L500.2500 ####[facility] [address] [place], [address] Lymphocytes/100 WBC (Bld) 13.0 % Low 19-41 [facility] Comment on above: Performed By: #### L 100.0100, L500.2500 ####[facility] [address], [address] MCH (RBC) [Entitic mass] 30.3 pg Normal 27.0-32.0 [facility] Comment on above: Performed By: #### L 100.0100, L500.2500 ####[facility] [address] [place], [address] MCHC (RBC) [Mass/Vol] 33.2 g/dL Normal 32-36 [facility] Comment on above: Performed By: #### L 100.0100, L500.2500 ####[facility] [address] [place], [address] MCV (RBC) [Entitic vol] 91.2 fL Normal 80-94 [facility] Comment on above: Performed By: #### L 100.0100, L500.2500 ####[facility] [address] [place], [address] Monocytes/100 WBC (Bld) 10.7 % High 0-10 [facility] Comment on above: Performed By: #### L 100.0100, L500.2500 ####[facility] [address] [place], [address] Neutrophils/100 WBC (Bld) 70.3 % High 47-70 [facility] Comment on above: Performed By: #### L 100.0100, L500.2500 ####[facility] [address] [place], [address] Nucleated RBC (Bld) [#/Vol] 0 10*3/uL Normal 0-5 [facility] Comment on above: Performed By: #### L 100.0100, L500.2500 ####[facility] [address] [place], [address] Platelet mean volume (Bld) [Entitic vol] 10.2 fL Normal 6.2-12.0 [facility] Comment on above: Performed By: #### L 100.0100, L500.2500 ####[facility] [address] [place], [address] Platelets (Bld) [#/Vol] 222 10*3/uL Normal 150-450 [facility] Comment on above: Performed By: #### L 100.0100, L500.2500 ####[facility] [address] [place], [address] RBC (Bld) [#/Vol] 3.07 10*6/uL Low 4.6-6.2 [facility] Comment on above: Performed By: #### L 100.0100, L500.2500 ####[facility] [address] [place], [address] RDW SD 53.1 fl High 35.1-43.9 [facility] Comment on above: Performed By: #### L 100.0100, L500.2500 ####[facility] [address] [place], [address] WBC (Bld) [#/Vol] 9.4 10*3/uL Normal 4.4-11.0 [facility] Comment on above: Performed By: #### L 100.0100, L500.2500 ####[facility] [address] [place], [address] COVID 19 AG RAPID (CHADD Swanson)on 12-15-2023 SARS-CoV-2 (COVID-19) RNA GONSALO+probe Ql (Unsp spec) Normal [facility] Comment on above: Performed By: #### M 100.505 ####[facility] [address] [place], [address] Basic Metabolic Profile (BMP )on 12-14-2023 BUN/CRE 19.4 RATIO Normal 10-20 [facility] Comment on above: Performed By: #### L 100.0100, L500.2500 ####[facility] [address] [place], [address] CA,Total 8.9 mg/dL Normal 8.5-10.1 [facility] Comment on above: Performed By: #### L 100.0100, L500.2500 ####[facility] [address] [place], [address] Chloride [Moles/Vol] 104 mmol/L Normal 98-107 [facility] Comment on above: Performed By: #### L 100.0100, L500.2500 ####[facility] [address] [place], [address] CO2 [Moles/Vol] 31.0 mmol/L Normal 21.0-32.0 [facility] Comment on above: Performed By: #### L 100.0100, L500.2500 ####[facility] [address] [place], [address] Creatinine [Mass/Vol] 1.70 mg/dL High 0.70-1.30 [facility] Comment on above: Result Comment: The validity of the calculated GFR GFRAA in patients over70 years has not been determined. Clinical correlation isessential. Performed By: #### L 100.0100, L500.2500 ####[facility] [address] [place], [address] ECRCL 35.50 ml/min Normal [facility] Comment on above: Performed By: #### L 100.0100, L500.2500 ####[facility] [address] [place], [address] EST GFR - AA 50 mL/min Low >60 [facility] Comment on above: Result Comment: Afri can Sudanese GFR Calc Performed By: #### L 100.0100, L500.2500 ####[facility] [address] [place], [address] GAP 6 Normal 5-15 [facility] Comment on above: Performed By: #### L 100.0100, L500.2500 ####[facility] [address] [place], [address] GFR/1.73 sq M.predicted among non-blacks MDRD (S/P/Bld) [Vol rate/Area] 41 mL/min/{1.73_m2} Low >60 [facility] Comment on above: Result Comment: Non- GFR Calc Performed By: #### L 100.0100, L500.2500 ####[facility] [address] [place], [address] Glucose [Mass/Vol] 146 mg/dL High 74-106 [facility] Comment on above: Result Comment: Fast ing Glucose result greater than or equal to 126 mg/dLsuggests DIABETES MELLITUS per A.D.A. criteria. Performed By: #### L 100.0100, L500.2500 ####[facility] [address] [place], [address] Potassium [Moles/Vol] 3.3 mmol/L Low 3.5-5.1 [facility] Comment on above: Performed By: #### L 100.0100, L500.2500 ####[facility] [address] [place], [address] Sodium [Moles/Vol] 141 mmol/L Normal 136-145 [facility] Comment on above: Performed By: #### L 100.0100, L500.2500 ####[facility] [address] [place], [address] Urea nitrogen [Mass/Vol] 33 mg/dL High 7-18 [facility] Comment on above: Performed By: #### L 100.0100, L500.2500 ####[facility] [address] [place], [address] Bedside Glucoseon 12-14-2023 FINGERSTICK GLU 247 mg/dL High 74-106 [facility] Comment on above: Result Comment: SARAN GEMENT OF PATIENT CARE PER NURSING PROTOCOL Performed By: #### L 501.080 ####[facility] [address] [place], [address] FINGERSTICK GLU 229 mg/dL High 74-106 [facility] Comment on above: Result Comment: SARAN GEMENT OF PATIENT CARE PER NURSING PROTOCOL Performed By: #### L 501.080 ####[facility] [address] [place], [address] FINGERSTICK GLU 161 mg/dL High 74-106 [facility] Comment on above: Result Comment: SARAN GEMENT OF PATIENT CARE PER NURSING PROTOCOL Performed By: #### L 501.080 ####[facility] [address] [place], [address] FINGERSTICK GLU 142 mg/dL High 74-106 [facility] Comment on above: Result Comment: SARAN GEMENT OF PATIENT CARE PER NURSING PROTOCOL Performed By: #### L 501.080 ####[facility] [address] [place], [address] CBC W/Diff, Automatedon 10-0 Absolute Lymph 0.94 X10 3/uL Normal 0.83-4.51 [facility] Comment on above: Performed By: #### L 100.0100, L500.2500 ####[facility] [address] [place], [address] Absolute Neut 7.4 X10 3/uL Normal 2.0-7.7 [facility] Comment on above: Performed By: #### L 100.0100, L500.2500 ####[facility] [address] [place], [address] Basophils/100 WBC (Bld) 0.5 % Normal 0-1 [facility] Comment on above: Performed By: #### L 100.0100, L500.2500 ####[facility] [address] [place], [address] Eosinophils/100 WBC (Bld) 4.2 % Normal 0-5 [facility] Comment on above: Performed By: #### L 100.0100, L500.2500 ####[facility] [address] [place], [address] Erythrocyte distribution width (RBC) [Ratio] 16.1 % High 11.6-14.6 [facility] Comment on above: Performed By: #### L 100.0100, L500.2500 ####[facility] [address] [place], [address] Hematocrit (Bld) [Volume fraction] 31.0 % Low 40-54 [facility] Comment on above: Performed By: #### L 100.0100, L500.2500 ####[facility] [address] [place], [address] Hemoglobin (Bld) [Mass/Vol] 10.0 g/dL Low 13.0-16.5 [facility] Comment on above: Performed By: #### L 100.0100, L500.2500 ####[facility] [address] [place], [address] IG% 0.400 Normal 0.0-0.9 [facility] Comment on above: Result Comment: IG% - Immature Granulocytes (promyelocytes, myelocytes andmetamyelocytes) > 1% indicates that a LEFT SHIFT is Present. Performed By: #### L 100.0100, L500.2500 ####[facility] [address] [place], [address] Lymphocytes/100 WBC (Bld) 9.8 % Low 19-41 [facility] Comment on above: Performed By: #### L 100.0100, L500.2500 ####[facility] [address] [place], [address] MCH (RBC) [Entitic mass] 29.6 pg Normal 27.0-32.0 [facility] Comment on above: Performed By: #### L 100.0100, L500.2500 ####[facility] [address] [place], [address] MCHC (RBC) [Mass/Vol] 32.3 g/dL Normal 32-36 [facility] Comment on above: Performed By: #### L 100.0100, L500.2500 ####[facility] [address] [place], [address] MCV (RBC) [Entitic vol] 91.7 fL Normal 80-94 [facility] Comment on above: Performed By: #### L 100.0100, L500.2500 ####[facility] [address] [place], [address] Monocytes/100 WBC (Bld) 7.9 % Normal 0-10 [facility] Comment on above: Performed By: #### L 100.0100, L500.2500 ####[facility] [address] [place], [address] Neutrophils/100 WBC (Bld) 77.2 % High 47-70 [facility] Comment on above: Performed By: #### L 100.0100, L500.2500 ####[facility] [address] [place], [address] Nucleated RBC (Bld) [#/Vol] 0 10*3/uL Normal 0-5 [facility] Comment on above: Performed By: #### L 100.0100, L500.2500 ####[facility] [address] [place], [address] Platelet mean volume (Bld) [Entitic vol] 11.1 fL Normal 6.2-12.0 [facility] Comment on above: Performed By: #### L 100.0100, L500.2500 ####[facility] [address] [place], [address] Platelets (Bld) [#/Vol] 203 10*3/uL Normal 150-450 [facility] Comment on above: Performed By: #### L 100.0100, L500.2500 ####[facility] [address] [place], [address] RBC (Bld) [#/Vol] 3.38 10*6/uL Low 4.6-6.2 [facility] Comment on above: Performed By: #### L 100.0100, L500.2500 ####[facility] [address] [place], [address] RDW SD 53.9 fl High 35.1-43.9 [facility] Comment on above: Performed By: #### L 100.0100, L500.2500 ####[facility] [address] [place], [address] WBC (Bld) [#/Vol] 9.6 10*3/uL Normal 4.4-11.0 [facility] Comment on above: Performed By: #### L 100.0100, L500.2500 ####[facility] [address] [place], [address] Basic Metabolic Profile (BMP )on 12-13-2023 BUN/CRE 17.2 RATIO Normal 10-20 [facility] Comment on above: Performed By: #### L 100.0100, L500.2500 ####[facility] [address] [place], [address] CA,Total 8.6 mg/dL Normal 8.5-10.1 [facility] Comment on above: Performed By: #### L 100.0100, L500.2500 ####[facility] [address] [place], [address] Chloride [Moles/Vol] 104 mmol/L Normal 98-107 [facility] Comment on above: Performed By: #### L 100.0100, L500.2500 ####[facility] [address] [place], [address] CO2 [Moles/Vol] 31.0 mmol/L Normal 21.0-32.0 [facility] Comment on above: Performed By: #### L 100.0100, L500.2500 ####[facility] [address] [place], [address] Creatinine [Mass/Vol] 1.86 mg/dL High 0.70-1.30 [facility] Comment on above: Result Comment: The validity of the calculated GFR GFRAA in patients over70 years has not been determined. Clinical correlation isessential. Performed By: #### L 100.0100, L500.2500 ####[facility] [address] [place], [address] ECRCL 32.45 ml/min Normal [facility] Comment on above: Performed By: #### L 100.0100, L500.2500 ####[facility] [address] [place], [address] EST GFR - AA 45 mL/min Low >60 [facility] Comment on above: Result Comment: Afri can Sudanese GFR Calc Performed By: #### L 100.0100, L500.2500 ####[facility] [address] [place], [address] GAP 5 Normal 5-15 [facility] Comment on above: Performed By: #### L 100.0100, L500.2500 ####[facility] [address] [place], [address] GFR/1.73 sq M.predicted among non-blacks MDRD (S/P/Bld) [Vol rate/Area] 37 mL/min/{1.73_m2} Low >60 [facility] Comment on above: Result Comment: Non- GFR Calc Performed By: #### L 100.0100, L500.2500 ####[facility] [address] [place], [address] Glucose [Mass/Vol] 176 mg/dL High 74-106 [facility] Comment on above: Result Comment: Fast ing Glucose result greater than or equal to 126 mg/dLsuggests DIABETES MELLITUS per A.D.A. criteria. Performed By: #### L 100.0100, L500.2500 ####[facility] [address] [place], [address] Potassium [Moles/Vol] 3.5 mmol/L Normal 3.5-5.1 [facility] Comment on above: Performed By: #### L 100.0100, L500.2500 ####[facility] [address] [place], [address] Sodium [Moles/Vol] 140 mmol/L Normal 136-145 [facility] Comment on above: Performed By: #### L 100.0100, L500.2500 ####[facility] [address] [place], [address] Urea nitrogen [Mass/Vol] 32 mg/dL High 7-18 [facility] Comment on above: Performed By: #### L 100.0100, L500.2500 ####[facility] [address] [place], [address] Bedside Glucoseon 12-13-2023 FINGERSTICK GLU 125 mg/dL High 74-106 [facility] Comment on above: Result Comment: SARAN GEMENT OF PATIENT CARE PER NURSING PROTOCOL Performed By: #### L 501.080 ####[facility] [address] [place], [address] FINGERSTICK GLU 142 mg/dL High 74-106 [facility] Comment on above: Result Comment: SARAN GEMENT OF PATIENT CARE PER NURSING PROTOCOL Performed By: #### L 501.080 ####[facility] [address] [place], [address] FINGERSTICK GLU 175 mg/dL High 74-106 [facility] Comment on above: Result Comment: SARAN GEMENT OF PATIENT CARE PER NURSING PROTOCOL Performed By: #### L 501.080 ####[facility] [address] [place], [address] CBC W/Diff, Automatedon 10-0 -2023 Absolute Lymph 0.82 X10 3/uL Low 0.83-4.51 [facility] Comment on above: Performed By: #### L 100.0100, L500.2500 ####[facility] [address] [place], [address] Absolute Neut 7.1 X10 3/uL Normal 2.0-7.7 [facility] Comment on above: Performed By: #### L 100.0100, L500.2500 ####[facility] [address] [place], [address] Basophils/100 WBC (Bld) 0.6 % Normal 0-1 [facility] Comment on above: Performed By: #### L 100.0100, L500.2500 ####[facility] [address] [place], [address] Eosinophils/100 WBC (Bld) 2.9 % Normal 0-5 [facility] Comment on above: Performed By: #### L 100.0100, L500.2500 ####[facility] [address] [place], [address] Erythrocyte distribution width (RBC) [Ratio] 16.2 % High 11.6-14.6 [facility] Comment on above: Performed By: #### L 100.0100, L500.2500 ####[facility] [address] [place], [address] Hematocrit (Bld) [Volume fraction] 28.6 % Low 40-54 [facility] Comment on above: Performed By: #### L 100.0100, L500.2500 ####[facility] [address] [place], [address] Hemoglobin (Bld) [Mass/Vol] 9.4 g/dL Low 13.0-16.5 [facility] Comment on above: Performed By: #### L 100.0100, L500.2500 ####[facility] [address] [place], [address] IG% 0.400 Normal 0.0-0.9 [facility] Comment on above: Result Comment: IG% - Immature Granulocytes (promyelocytes, myelocytes andmetamyelocytes) > 1% indicates that a LEFT SHIFT is Present. Performed By: #### L 100.0100, L500.2500 ####[facility] [address] [place], [address] Lymphocytes/100 WBC (Bld) 9.1 % Low 19-41 [facility] Comment on above: Performed By: #### L 100.0100, L500.2500 ####[facility] [address] [place], [address] MCH (RBC) [Entitic mass] 30.3 pg Normal 27.0-32.0 [facility] Comment on above: Performed By: #### L 100.0100, L500.2500 ####[facility] [address] [place], [address] MCHC (RBC) [Mass/Vol] 32.9 g/dL Normal 32-36 [facility] Comment on above: Performed By: #### L 100.0100, L500.2500 ####[facility] [address] [place], [address] MCV (RBC) [Entitic vol] 92.3 fL Normal 80-94 [facility] Comment on above: Performed By: #### L 100.0100, L500.2500 ####[facility] [address] [place], [address] Monocytes/100 WBC (Bld) 8.3 % Normal 0-10 [facility] Comment on above: Performed By: #### L 100.0100, L500.2500 ####[facility] [address] [place], [address] Neutrophils/100 WBC (Bld) 78.7 % High 47-70 [facility] Comment on above: Performed By: #### L 100.0100, L500.2500 ####[facility] [address] [place], [address] Nucleated RBC (Bld) [#/Vol] 0 10*3/uL Normal 0-5 [facility] Comment on above: Performed By: #### L 100.0100, L500.2500 ####[facility] [address] [place], [address] Platelet mean volume (Bld) [Entitic vol] 11.0 fL Normal 6.2-12.0 [facility] Comment on above: Performed By: #### L 100.0100, L500.2500 ####[facility] [address] [place], [address] Platelets (Bld) [#/Vol] 159 10*3/uL Normal 150-450 [facility] Comment on above: Performed By: #### L 100.0100, L500.2500 ####[facility] [address] [place], [address] RBC (Bld) [#/Vol] 3.10 10*6/uL Low 4.6-6.2 [facility] Comment on above: Performed By: #### L 100.0100, L500.2500 ####[facility] [address] [place], [address] RDW SD 55.3 fl High 35.1-43.9 [facility] Comment on above: Performed By: #### L 100.0100, L500.2500 ####[facility] [address] [place], [address] WBC (Bld) [#/Vol] 9.0 10*3/uL Normal 4.4-11.0 [facility] Comment on above: Performed By: #### L 100.0100, L500.2500 ####[facility] [address] [place], [address] Basic Metabolic Profile (BMP )on 12-12-2023 BUN/CRE 15.8 RATIO Normal 10-20 [facility] Comment on above: Performed By: #### L 100.0100, L500.2500 ####[facility] [address] [place], [address] CA,Total 8.9 mg/dL Normal 8.5-10.1 [facility] Comment on above: Performed By: #### L 100.0100, L500.2500 ####[facility] [address] [place], [address] Chloride [Moles/Vol] 104 mmol/L Normal 98-107 [facility] Comment on above: Performed By: #### L 100.0100, L500.2500 ####[facility] [address] [place], [address] CO2 [Moles/Vol] 28.0 mmol/L Normal 21.0-32.0 [facility] Comment on above: Performed By: #### L 100.0100, L500.2500 ####[facility] [address] [place], [address] Creatinine [Mass/Vol] 1.77 mg/dL High 0.70-1.30 [facility] Comment on above: Result Comment: The validity of the calculated GFR GFRAA in patients over70 years has not been determined. Clinical correlation isessential. Performed By: #### L 100.0100, L500.2500 ####[facility] [address] [place], [address] ECRCL 34.10 ml/min Normal [facility] Comment on above: Performed By: #### L 100.0100, L500.2500 ####[facility] [address] [place], [address] EST GFR - AA 47 mL/min Low >60 [facility] Comment on above: Result Comment: Afri can Sudanese GFR Calc Performed By: #### L 100.0100, L500.2500 ####[facility] [address] [place], [address] GAP 9 Normal 5-15 [facility] Comment on above: Performed By: #### L 100.0100, L500.2500 ####[facility] [address] [place], [address] GFR/1.73 sq M.predicted among non-blacks MDRD (S/P/Bld) [Vol rate/Area] 39 mL/min/{1.73_m2} Low >60 [facility] Comment on above: Result Comment: Non- GFR Calc Performed By: #### L 100.0100, L500.2500 ####[facility] [address] [place], [address] Glucose [Mass/Vol] 156 mg/dL High 74-106 [facility] Comment on above: Result Comment: Fast ing Glucose result greater than or equal to 126 mg/dLsuggests DIABETES MELLITUS per A.D.A. criteria. Performed By: #### L 100.0100, L500.2500 ####[facility] [address] [place], [address] Potassium [Moles/Vol] 4.2 mmol/L Normal 3.5-5.1 [facility] Comment on above: Performed By: #### L 100.0100, L500.2500 ####[facility] [address] [place], [address] Sodium [Moles/Vol] 141 mmol/L Normal 136-145 [facility] Comment on above: Performed By: #### L 100.0100, L500.2500 ####[facility] [address] [place], [address] Urea nitrogen [Mass/Vol] 28 mg/dL High 7-18 [facility] Comment on above: Performed By: #### L 100.0100, L500.2500 ####[facility] [address] [place], [address] Bedside Glucoseon 12-12-2023 FINGERSTICK GLU 195 mg/dL High 74-106 [facility] Comment on above: Result Comment: SARAN GEMENT OF PATIENT CARE PER NURSING PROTOCOL Performed By: #### L 501.080 ####[facility] [address] [place], [address] FINGERSTICK GLU 207 mg/dL High 74-106 [facility] Comment on above: Result Comment: SARAN GEMENT OF PATIENT CARE PER NURSING PROTOCOL Performed By: #### L 501.080 ####[facility] [address] [place], [address] CBC W/Diff, Automatedon 09-3 0-2023 Absolute Lymph 0.82 X10 3/uL Low 0.83-4.51 [facility] Comment on above: Performed By: #### L 100.0100, L500.2500 ####[facility] [address] [place], [address] Absolute Neut 7.5 X10 3/uL Normal 2.0-7.7 [facility] Comment on above: Performed By: #### L 100.0100, L500.2500 ####[facility] [address] [place], [address] Basophils/100 WBC (Bld) 0.3 % Normal 0-1 [facility] Comment on above: Performed By: #### L 100.0100, L500.2500 ####[facility] [address] [place], [address] Eosinophils/100 WBC (Bld) 1.1 % Normal 0-5 [facility] Comment on above: Performed By: #### L 100.0100, L500.2500 ####[facility] [address] [place], [address] Erythrocyte distribution width (RBC) [Ratio] 16.3 % High 11.6-14.6 [facility] Comment on above: Performed By: #### L 100.0100, L500.2500 ####[facility] [address] [place], [address] Hematocrit (Bld) [Volume fraction] 34.4 % Low 40-54 [facility] Comment on above: Performed By: #### L 100.0100, L500.2500 ####[facility] [address] [place], [address] Hemoglobin (Bld) [Mass/Vol] 10.8 g/dL Low 13.0-16.5 [facility] Comment on above: Performed By: #### L 100.0100, L500.2500 ####[facility] [address] [place], [address] IG% 0.300 Normal 0.0-0.9 [facility] Comment on above: Result Comment: IG% - Immature Granulocytes (promyelocytes, myelocytes andmetamyelocytes) > 1% indicates that a LEFT SHIFT is Present. Performed By: #### L 100.0100, L500.2500 ####[facility] [address] [place], [address] Lymphocytes/100 WBC (Bld) 8.8 % Low 19-41 [facility] Comment on above: Performed By: #### L 100.0100, L500.2500 ####[facility] [address] [place], [address] MCH (RBC) [Entitic mass] 29.7 pg Normal 27.0-32.0 [facility] Comment on above: Performed By: #### L 100.0100, L500.2500 ####[facility] [address] [place], [address] MCHC (RBC) [Mass/Vol] 31.4 g/dL Low 32-36 [facility] Comment on above: Performed By: #### L 100.0100, L500.2500 ####[facility] [address] [place], [address] MCV (RBC) [Entitic vol] 94.5 fL High 80-94 [facility] Comment on above: Performed By: #### L 100.0100, L500.2500 ####[facility] [address] [place], [address] Monocytes/100 WBC (Bld) 9.1 % Normal 0-10 [facility] Comment on above: Performed By: #### L 100.0100, L500.2500 ####[facility] [address] [place], [address] Neutrophils/100 WBC (Bld) 80.4 % High 47-70 [facility] Comment on above: Performed By: #### L 100.0100, L500.2500 ####[facility] [address] [place], [address] Nucleated RBC (Bld) [#/Vol] 0 10*3/uL Normal 0-5 [facility] Comment on above: Performed By: #### L 100.0100, L500.2500 ####[facility] [address] [place], [address] Platelet mean volume (Bld) [Entitic vol] 10.9 fL Normal 6.2-12.0 [facility] Comment on above: Performed By: #### L 100.0100, L500.2500 ####[facility] [address] [place], [address] Platelets (Bld) [#/Vol] 183 10*3/uL Normal 150-450 [facility] Comment on above: Performed By: #### L 100.0100, L500.2500 ####[facility] [address] [place], [address] RBC (Bld) [#/Vol] 3.64 10*6/uL Low 4.6-6.2 [facility] Comment on above: Performed By: #### L 100.0100, L500.2500 ####[facility] [address] [place], [address] RDW SD 57.1 fl High 35.1-43.9 [facility] Comment on above: Performed By: #### L 100.0100, L500.2500 ####[facility] [address] [place], [address] WBC (Bld) [#/Vol] 9.3 10*3/uL Normal 4.4-11.0 [facility] Comment on above: Performed By: #### L 100.0100, L500.2500 ####[facility] [address] [place], [address] Magnesiumon 12-12-2023 Magnesium [Mass/Vol] 2.2 mg/dL Normal 1.6-2.6 [facility] Comment on above: Performed By: #### L 501.5200, L501.2300 ####[facility] [address] [place], [address] Phosphoruson 12-12-2023 Phosphate [Mass/Vol] 2.7 mg/dL Normal 2.5-4.9 [facility] Comment on above: Performed By: #### L 501.5200, L501.2300 ####[facility] [address] [place], [address] Vitamin D,25 Hydroxyon 12-11 Vitamin D 25-OH 57.7 ng/mL Normal [facility] Comment on above: Result Comment: Nicole min D 25(OH) Status Range Deficiency <20 ng/mL (50nmol/L) Insufficiency 20 - 30 ng/mL (50 - 75 nmol/L) Sufficiency 30 - 100 ng/mL (75 - 250 nmol/L) Toxicity >100 ng/mL (>250 nmol/L) Performed By: #### L 506.1000 ####[facility] [address] [place], [address] 12 Lead EKGon 12-11-2023 12 Lead EKG Normal [facility] Bedside Glucoseon 12-11-2023 FINGERSTICK GLU 190 mg/dL High 74-106 [facility] Comment on above: Result Comment: SARAN GEMENT OF PATIENT CARE PER NURSING PROTOCOL Performed By: #### L 501.080 ####[facility] [address] [place], [address] FINGERSTICK GLU 168 mg/dL High 74-106 [facility] Comment on above: Result Comment: SAARN GEMENT OF PATIENT CARE PER NURSING PROTOCOL Performed By: #### L 501.080 ####[facility] [address] [place], [address] CBC W/Diff, Automatedon 11-13 Absolute Lymph 0.94 X10 3/uL Normal 0.83-4.51 [facility] Comment on above: Performed By: #### L 501.9520, L501.5200, L501.9985, L500.4050, L100.0100, L501.2300 ####[facility] [address] [place], [address] Absolute Neut 10.4 X10 3/uL High 2.0-7.7 [facility] Comment on above: Performed By: #### L 501.9520, L501.5200, L501.9985, L500.4050, L100.0100, L501.2300 ####[facility] [address] [place], [address] Basophils/100 WBC (Bld) 0.4 % Normal 0-1 [facility] Comment on above: Performed By: #### L 501.9520, L501.5200, L501.9985, L500.4050, L100.0100, L501.2300 ####[facility] [address] [place], [address] Eosinophils/100 WBC (Bld) 1.3 % Normal 0-5 [facility] Comment on above: Performed By: #### L 501.9520, L501.5200, L501.9985, L500.4050, L100.0100, L501.2300 ####[facility] [address] [place], [address] Erythrocyte distribution width (RBC) [Ratio] 15.9 % High 11.6-14.6 [facility] Comment on above: Performed By: #### L 501.9520, L501.5200, L501.9985, L500.4050, L100.0100, L501.2300 ####[facility] [address] [place], [address] Hematocrit (Bld) [Volume fraction] 38.7 % Low 40-54 [facility] Comment on above: Performed By: #### L 501.9520, L501.5200, L501.9985, L500.4050, L100.0100, L501.2300 ####[facility] [address] [place], [address] Hemoglobin (Bld) [Mass/Vol] 12.6 g/dL Low 13.0-16.5 [facility] Comment on above: Performed By: #### L 501.9520, L501.5200, L501.9985, L500.4050, L100.0100, L501.2300 ####[facility] [address] [place], [address] IG% 0.600 Normal 0.0-0.9 [facility] Comment on above: Result Comment: IG% - Immature Granulocytes (promyelocytes, myelocytes andmetamyelocytes) > 1% indicates that a LEFT SHIFT is Present. Performed By: #### L 501.9520, L501.5200, L501.9985, L500.4050, L100.0100, L501.2300 ####[facility] [address] [place], [address] Lymphocytes/100 WBC (Bld) 7.5 % Low 19-41 [facility] Comment on above: Performed By: #### L 501.9520, L501.5200, L501.9985, L500.4050, L100.0100, L501.2300 ####[facility] [address] [place], [address] MCH (RBC) [Entitic mass] 29.9 pg Normal 27.0-32.0 [facility] Comment on above: Performed By: #### L 501.9520, L501.5200, L501.9985, L500.4050, L100.0100, L501.2300 ####[facility] [address] [place], [address] MCHC (RBC) [Mass/Vol] 32.6 g/dL Normal 32-36 [facility] Comment on above: Performed By: #### L 501.9520, L501.5200, L501.9985, L500.4050, L100.0100, L501.2300 ####[facility] [address] [place], [address] MCV (RBC) [Entitic vol] 91.9 fL Normal 80-94 [facility] Comment on above: Performed By: #### L 501.9520, L501.5200, L501.9985, L500.4050, L100.0100, L501.2300 ####[facility] [address] [place], [address] Monocytes/100 WBC (Bld) 7.6 % Normal 0-10 [facility] Comment on above: Performed By: #### L 501.9520, L501.5200, L501.9985, L500.4050, L100.0100, L501.2300 ####[facility] [address] [place], [address] Neutrophils/100 WBC (Bld) 82.6 % High 47-70 [facility] Comment on above: Performed By: #### L 501.9520, L501.5200, L501.9985, L500.4050, L100.0100, L501.2300 ####[facility] [address] [place], [address] Nucleated RBC (Bld) [#/Vol] 0 10*3/uL Normal 0-5 [facility] Comment on above: Performed By: #### L 501.9520, L501.5200, L501.9985, L500.4050, L100.0100, L501.2300 ####[facility] [address] [place], [address] Platelet mean volume (Bld) [Entitic vol] 11.1 fL Normal 6.2-12.0 [facility] Comment on above: Performed By: #### L 501.9520, L501.5200, L501.9985, L500.4050, L100.0100, L501.2300 ####[facility] [address] [place], [address] Platelets (Bld) [#/Vol] 215 10*3/uL Normal 150-450 [facility] Comment on above: Performed By: #### L 501.9520, L501.5200, L501.9985, L500.4050, L100.0100, L501.2300 ####[facility] [address] [place], [address] RBC (Bld) [#/Vol] 4.21 10*6/uL Low 4.6-6.2 [facility] Comment on above: Performed By: #### L 501.9520, L501.5200, L501.9985, L500.4050, L100.0100, L501.2300 ####[facility] [address] [place], [address] RDW SD 53.9 fl High 35.1-43.9 [facility] Comment on above: Performed By: #### L 501.9520, L501.5200, L501.9985, L500.4050, L100.0100, L501.2300 ####[facility] [address] [place], [address] WBC (Bld) [#/Vol] 12.6 10*3/uL High 4.4-11.0 [facility] Comment on above: Performed By: #### L 501.9520, L501.5200, L501.9985, L500.4050, L100.0100, L501.2300 ####[facility] [address] [place], [address] Comprehensive Metabolic Prof ilon 12-11-2023 Albumin [Mass/Vol] 3.5 g/dL Normal 3.2-5.0 [facility] Comment on above: Performed By: #### L 501.9520, L501.5200, L501.9985, L500.4050, L100.0100, L501.2300 ####[facility] [address] [place], [address] Albumin/Globulin [Mass ratio] 0.9 {ratio} Normal 0.9-2.4 [facility] Comment on above: Performed By: #### L 501.9520, L501.5200, L501.9985, L500.4050, L100.0100, L501.2300 ####[facility] [address] [place], [address] ALK P 77 U/L Normal 45-117 [facility] Comment on above: Performed By: #### L 501.9520, L501.5200, L501.9985, L500.4050, L100.0100, L501.2300 ####[facility] [address] [place], [address] ALT [Catalytic activity/Vol] 21 U/L Normal 16-61 [facility] Comment on above: Performed By: #### L 501.9520, L501.5200, L501.9985, L500.4050, L100.0100, L501.2300 ####[facility] [address] [place], [address] AST [Catalytic activity/Vol] 20 U/L Normal 15-37 [facility] Comment on above: Result Comment: Slig ht Hemolysis, Result may be falsely increased. Performed By: #### L 501.9520, L501.5200, L501.9985, L500.4050, L100.0100, L501.2300 ####[facility] [address] [place], [address] Bilirubin [Mass/Vol] 0.20 mg/dL Normal 0.20-1.00 [facility] Comment on above: Result Comment: For patients on eltrombopag therapy, use of Dimension [place] TBIL is not recommended. Performed By: #### L 501.9520, L501.5200, L501.9985, L500.4050, L100.0100, L501.2300 ####[facility] [address] [place], [address] BUN/CRE 15.8 RATIO Normal 10-20 [facility] Comment on above: Performed By: #### L 501.9520, L501.5200, L501.9985, L500.4050, L100.0100, L501.2300 ####[facility] [address] [place], [address] CA,Total 9.4 mg/dL Normal 8.5-10.1 [facility] Comment on above: Performed By: #### L 501.9520, L501.5200, L501.9985, L500.4050, L100.0100, L501.2300 ####[facility] [address] [place], [address] Chloride [Moles/Vol] 99 mmol/L Normal 98-107 [facility] Comment on above: Performed By: #### L 501.9520, L501.5200, L501.9985, L500.4050, L100.0100, L501.2300 ####[facility] [address] [place], [address] CO2 [Moles/Vol] 34.0 mmol/L High 21.0-32.0 [facility] Comment on above: Performed By: #### L 501.9520, L501.5200, L501.9985, L500.4050, L100.0100, L501.2300 ####[facility] [address] [place], [address] Creatinine [Mass/Vol] 1.77 mg/dL High 0.70-1.30 [facility] Comment on above: Result Comment: The validity of the calculated GFR GFRAA in patients over70 years has not been determined. Clinical correlation isessential. Performed By: #### L 501.9520, L501.5200, L501.9985, L500.4050, L100.0100, L501.2300 ####[facility] [address] [place], [address] ECRCL 34.10 ml/min Normal [facility] Comment on above: Performed By: #### L 501.9520, L501.5200, L501.9985, L500.4050, L100.0100, L501.2300 ####[facility] [address] [place], [address] EST GFR - AA 47 mL/min Low >60 [facility] Comment on above: Result Comment: Afri can Sudanese GFR Calc Performed By: #### L 501.9520, L501.5200, L501.9985, L500.4050, L100.0100, L501.2300 ####[facility] [address] [place], [address] GAP 6 Normal 5-15 [facility] Comment on above: Performed By: #### L 501.9520, L501.5200, L501.9985, L500.4050, L100.0100, L501.2300 ####[facility] [address] [place], [address] GFR/1.73 sq M.predicted among non-blacks MDRD (S/P/Bld) [Vol rate/Area] 39 mL/min/{1.73_m2} Low >60 [facility] Comment on above: Result Comment: Non- GFR Calc Performed By: #### L 501.9520, L501.5200, L501.9985, L500.4050, L100.0100, L501.2300 ####[facility] [address] [place], [address] Globulin (S) [Mass/Vol] 3.7 g/dL Normal 2.2-4.2 [facility] Comment on above: Performed By: #### L 501.9520, L501.5200, L501.9985, L500.4050, L100.0100, L501.2300 ####[facility] [address] [place], [address] Glucose [Mass/Vol] 151 mg/dL High 74-106 [facility] Comment on above: Result Comment: Fast ing Glucose result greater than or equal to 126 mg/dLsuggests DIABETES MELLITUS per A.D.A. criteria. Performed By: #### L 501.9520, L501.5200, L501.9985, L500.4050, L100.0100, L501.2300 ####[facility] [address] [place], [address] Potassium [Moles/Vol] 3.7 mmol/L Normal 3.5-5.1 [facility] Comment on above: Result Comment: Slig ht Hemolysis, Result may be falsely increased. Performed By: #### L 501.9520, L501.5200, L501.9985, L500.4050, L100.0100, L501.2300 ####[facility] [address] [place], [address] Sodium [Moles/Vol] 139 mmol/L Normal 136-145 [facility] Comment on above: Performed By: #### L 501.9520, L501.5200, L501.9985, L500.4050, L100.0100, L501.2300 ####[facility] [address] [place], [address] T PROT 7.2 g/dL Normal 6.4-8.2 [facility] Comment on above: Performed By: #### L 501.9520, L501.5200, L501.9985, L500.4050, L100.0100, L501.2300 ####[facility] [address] [place], [address] Urea nitrogen [Mass/Vol] 28 mg/dL High 7-18 [facility] Comment on above: Performed By: #### L 501.9520, L501.5200, L501.9985, L500.4050, L100.0100, L501.2300 ####[facility] [address] [place], [address] Consultation - Orthopedicson 12-11-2023 Consultation - Orthopedics Normal [facility] Decalcification bone/plaqueo n 12-11-2023 Decalcification bone/plaque Normal [facility] Comment on above: Performed By: #### P DEC ####[facility] [address] [place], [address] Hemoglobin A1con 12-11-2023 HbA1c (Bld) [Mass fraction] 6.4 % High 3.8-5.6 [facility] Comment on above: Result Comment: Norm al < 5.7 % Prediabetic 5.7 - 6.4 % Diabetic >or= 6.5 % Please note range changes. Performed By: #### L 501.9520, L501.5200, L501.9985, L500.4050, L100.0100, L501.2300 ####[facility] [address] [place], [address] Hip Min 2 Views (Portable)on 12-11-2023 Hip Min 2 Views (Portable) Normal [facility] MR/POSTOP.ANEon 12-11-2023 MR/POSTOP.ANE Normal [facility] MR/VPAWHQLB0sl 12-11-2023 MR/POSTOPAN2 Normal [facility] Magnesiumon 12-11-2023 Magnesium [Mass/Vol] 2.3 mg/dL Normal 1.6-2.6 [facility] Comment on above: Result Comment: Slig ht Hemolysis, Result may be falsely increased. Performed By: #### L 501.9520, L501.5200, L501.9985, L500.4050, L100.0100, L501.2300 ####[facility] [address], [address] Operative Reporton Operative Report Normal [facility] Phosphoruson 12-11-2023 Phosphate [Mass/Vol] 2.1 mg/dL Low 2.5-4.9 [facility] Comment on above: Performed By: #### L 501.9520, L501.5200, L501.9985, L500.4050, L100.0100, L501.2300 ####[facility] [address] [place], [address] Thyroid Stim Hormone (TSH)on 12-11-2023 TSH 2.260 uIU/mL Normal 0.358-3.740 [facility] Comment on above: Performed By: #### L 501.9520, L501.5200, L501.9985, L500.4050, L100.0100, L501.2300 ####[facility] [address] [place], [address] Type AND Screenon 12-11-2023 Ab SCREEN GEL Negative Normal [facility] Comment on above: Order Comment: S Performed By: #### B TS ####[facility] [address] [place], [place], [address] Brain/Head without Contrasto n 12-10-2023 Brain/Head without Contrast Normal [facility] Emergency Department Summary on 12-10-2023 Emergency Department Summary Normal [facility] H AND P Exam - Hospitaliston 12-10-2023 H&P Exam - Hospitalist Normal [facility] HIP, UNI W/ Pelvis 2-3 Views on 12-10-2023 HIP, UNI W/ Pelvis 2-3 Views Normal [facility] Spine Cervical without Contr ason 12-10-2023 Spine Cervical without Contras Normal [facility] 12 Lead EKG performed by BMS on 11-24-2023 12 Lead EKG performed by BMS Normal [facility] Cardiology Visit Reporton Cardiology Visit Report Normal [facility] CBC W/Diff, Automatedon Absolute Lymph 1.31 X10 3/uL Normal 0.83-4.51 [facility] Comment on above: Performed By: #### L 506.1000, L100.0100, L501.9985, L501.5200, L500.4050, L500.4100, L501.9520 ####[facility] [address] [place], [address] Absolute Neut 5.9 X10 3/uL Normal 2.0-7.7 [facility] Comment on above: Performed By: #### L 506.1000, L100.0100, L501.9985, L501.5200, L500.4050, L500.4100, L501.9520 ####[facility] [address] [place], [address] Basophils/100 WBC (Bld) 1.1 % High 0-1 [facility] Comment on above: Performed By: #### L 506.1000, L100.0100, L501.9985, L501.5200, L500.4050, L500.4100, L501.9520 ####[facility] [address] [place], [address] Eosinophils/100 WBC (Bld) 3.4 % Normal 0-5 [facility] Comment on above: Performed By: #### L 506.1000, L100.0100, L501.9985, L501.5200, L500.4050, L500.4100, L501.9520 ####[facility] [address] [place], [address] Erythrocyte distribution width (RBC) [Ratio] 16.7 % High 11.6-14.6 [facility] Comment on above: Performed By: #### L 506.1000, L100.0100, L501.9985, L501.5200, L500.4050, L500.4100, L501.9520 ####[facility] [address] [place], [address] Hematocrit (Bld) [Volume fraction] 37.5 % Low 40-54 [facility] Comment on above: Performed By: #### L 506.1000, L100.0100, L501.9985, L501.5200, L500.4050, L500.4100, L501.9520 ####[facility] [address] [place], [address] Hemoglobin (Bld) [Mass/Vol] 12.2 g/dL Low 13.0-16.5 [facility] Comment on above: Performed By: #### L 506.1000, L100.0100, L501.9985, L501.5200, L500.4050, L500.4100, L501.9520 ####[facility] [address] [place], [address] IG% 0.200 Normal 0.0-0.9 [facility] Comment on above: Result Comment: IG% - Immature Granulocytes (promyelocytes, myelocytes andmetamyelocytes) > 1% indicates that a LEFT SHIFT is Present. Performed By: #### L 506.1000, L100.0100, L501.9985, L501.5200, L500.4050, L500.4100, L501.9520 ####[facility] [address] [place], [address] Lymphocytes/100 WBC (Bld) 15.8 % Low 19-41 [facility] Comment on above: Performed By: #### L 506.1000, L100.0100, L501.9985, L501.5200, L500.4050, L500.4100, L501.9520 ####[facility] [address] [place], [address] MCH (RBC) [Entitic mass] 29.6 pg Normal 27.0-32.0 [facility] Comment on above: Performed By: #### L 506.1000, L100.0100, L501.9985, L501.5200, L500.4050, L500.4100, L501.9520 ####[facility] [address] [place], [address] MCHC (RBC) [Mass/Vol] 32.5 g/dL Normal 32-36 [facility] Comment on above: Performed By: #### L 506.1000, L100.0100, L501.9985, L501.5200, L500.4050, L500.4100, L501.9520 ####[facility] [address] [place], [address] MCV (RBC) [Entitic vol] 91.0 fL Normal 80-94 [facility] Comment on above: Performed By: #### L 506.1000, L100.0100, L501.9985, L501.5200, L500.4050, L500.4100, L501.9520 ####[facility] [address] [place], [address] Monocytes/100 WBC (Bld) 8.8 % Normal 0-10 [facility] Comment on above: Performed By: #### L 506.1000, L100.0100, L501.9985, L501.5200, L500.4050, L500.4100, L501.9520 ####[facility] [address] [place], [address] Neutrophils/100 WBC (Bld) 70.7 % High 47-70 [facility] Comment on above: Performed By: #### L 506.1000, L100.0100, L501.9985, L501.5200, L500.4050, L500.4100, L501.9520 ####[facility] [address] [place], [address] Nucleated RBC (Bld) [#/Vol] 0 10*3/uL Normal 0-5 [facility] Comment on above: Performed By: #### L 506.1000, L100.0100, L501.9985, L501.5200, L500.4050, L500.4100, L501.9520 ####[facility] [address] [place], [address] Platelet mean volume (Bld) [Entitic vol] 10.9 fL Normal 6.2-12.0 [facility] Comment on above: Performed By: #### L 506.1000, L100.0100, L501.9985, L501.5200, L500.4050, L500.4100, L501.9520 ####[facility] [address] [place], [address] Platelets (Bld) [#/Vol] 207 10*3/uL Normal 150-450 [facility] Comment on above: Performed By: #### L 506.1000, L100.0100, L501.9985, L501.5200, L500.4050, L500.4100, L501.9520 ####[facility] [address] [place], [address] RBC (Bld) [#/Vol] 4.12 10*6/uL Low 4.6-6.2 [facility] Comment on above: Performed By: #### L 506.1000, L100.0100, L501.9985, L501.5200, L500.4050, L500.4100, L501.9520 ####[facility] [address] [place], [address] RDW SD 55.6 fl High 35.1-43.9 [facility] Comment on above: Performed By: #### L 506.1000, L100.0100, L501.9985, L501.5200, L500.4050, L500.4100, L501.9520 ####[facility] [address] [place], [address] WBC (Bld) [#/Vol] 8.3 10*3/uL Normal 4.4-11.0 [facility] Comment on above: Performed By: #### L 506.1000, L100.0100, L501.9985, L501.5200, L500.4050, L500.4100, L501.9520 ####[facility] [address] [place], [address] CBC-Complete Blood Cnt No Di ffon 11-15-2023 HCT Normal 40-54 [facility] Comment on above: Result Comment: DR. AVILES CBCD Performed By: #### L 503.6550, L503.6150, L100.0500 ####[facility] [address] [place], [address] HGB Normal 13.0-16.5 [facility] Comment on above: Result Comment: DR. AVILES CBCD Performed By: #### L 503.6550, L503.6150, L100.0500 ####[facility] [address] [place], [address] MCH Normal 27.0-32.0 [facility] Comment on above: Result Comment: DR. AVILES CBCD Performed By: #### L 503.6550, L503.6150, L100.0500 ####[facility] [address] [place], [address] MCHC Normal 32-36 [facility] Comment on above: Result Comment: DR. AVILES CBCD Performed By: #### L 503.6550, L503.6150, L100.0500 ####[facility] [address] [place], [address] MCV Normal 80-94 [facility] Comment on above: Result Comment: DR. AVILES CBCD Performed By: #### L 503.6550, L503.6150, L100.0500 ####[facility] [address] [place], [address] PLT Normal 150-450 [facility] Comment on above: Result Comment: DR. AVILES CBCD Performed By: #### L 503.6550, L503.6150, L100.0500 ####[facility] [address] [place], [address] RBC Normal 4.6-6.2 [facility] Comment on above: Result Comment: DR. AVILES CBCD Performed By: #### L 503.6550, L503.6150, L100.0500 ####[facility] [address] [place], [address] RDW CV Normal 11.6-14.6 [facility] Comment on above: Result Comment: DR. AVILES CBCD Performed By: #### L 503.6550, L503.6150, L100.0500 ####[facility] [address] [place], [address] RDW SD Normal 35.1-43.9 [facility] Comment on above: Result Comment: DR. AVILES CBCD Performed By: #### L 503.6550, L503.6150, L100.0500 ####[facility] [address] [place], [address] WBC Normal 4.4-11.0 [facility] Comment on above: Result Comment: DR. AVILES CBCD Performed By: #### L 503.6550, L503.6150, L100.0500 ####[facility] [address] [place], [address] Comprehensive Metabolic Prof ilon 11-15-2023 Albumin [Mass/Vol] 3.5 g/dL Normal 3.2-5.0 [facility] Comment on above: Performed By: #### L 506.1000, L100.0100, L501.9985, L501.5200, L500.4050, L500.4100, L501.9520 ####[facility] [address] [place], [address] Albumin/Globulin [Mass ratio] 1.0 {ratio} Normal 0.9-2.4 [facility] Comment on above: Performed By: #### L 506.1000, L100.0100, L501.9985, L501.5200, L500.4050, L500.4100, L501.9520 ####[facility] [address] [place], [address] ALK P 68 U/L Normal 45-117 [facility] Comment on above: Performed By: #### L 506.1000, L100.0100, L501.9985, L501.5200, L500.4050, L500.4100, L501.9520 ####[facility] [address] [place], [address] ALT [Catalytic activity/Vol] 16 U/L Normal 16-61 [facility] Comment on above: Performed By: #### L 506.1000, L100.0100, L501.9985, L501.5200, L500.4050, L500.4100, L501.9520 ####[facility] [address] [place], [address] AST [Catalytic activity/Vol] 15 U/L Normal 15-37 [facility] Comment on above: Performed By: #### L 506.1000, L100.0100, L501.9985, L501.5200, L500.4050, L500.4100, L501.9520 ####[facility] [address] [place], [address] Bilirubin [Mass/Vol] 0.30 mg/dL Normal 0.20-1.00 [facility] Comment on above: Result Comment: For patients on eltrombopag therapy, use of Dimension [place] TBIL is not recommended. Performed By: #### L 506.1000, L100.0100, L501.9985, L501.5200, L500.4050, L500.4100, L501.9520 ####[facility] [address] [place], [address] BUN/CRE 14.7 RATIO Normal 10-20 [facility] Comment on above: Performed By: #### L 506.1000, L100.0100, L501.9985, L501.5200, L500.4050, L500.4100, L501.9520 ####[facility] [address] [place], [address] CA,Total 9.2 mg/dL Normal 8.5-10.1 [facility] Comment on above: Performed By: #### L 506.1000, L100.0100, L501.9985, L501.5200, L500.4050, L500.4100, L501.9520 ####[facility] [address] [place], [address] Chloride [Moles/Vol] 102 mmol/L Normal 98-107 [facility] Comment on above: Performed By: #### L 506.1000, L100.0100, L501.9985, L501.5200, L500.4050, L500.4100, L501.9520 ####[facility] [address] [place], [place], [phone] CO2 [Moles/Vol] 31.0 mmol/L Normal 21.0-32.0 [facility] Comment on above: Performed By: #### L 506.1000, L100.0100, L501.9985, L501.5200, L500.4050, L500.4100, L501.9520 ####[facility] [address] [place], [place], [phone] Creatinine [Mass/Vol] 1.91 mg/dL High 0.70-1.30 [facility] Comment on above: Result Comment: The validity of the calculated GFR GFRAA in patients over70 years has not been determined. Clinical correlation isessential. Performed By: #### L 506.1000, L100.0100, L501.9985, L501.5200, L500.4050, L500.4100, L501.9520 ####[facility] [address] [place], [place], [phone] EST GFR - AA 43 mL/min Low >60 [facility] Comment on above: Result Comment: Afri can Sudanese GFR Calc Performed By: #### L 506.1000, L100.0100, L501.9985, L501.5200, L500.4050, L500.4100, L501.9520 ####[facility] [address] [place], [address] GAP 9 Normal 5-15 [facility] Comment on above: Performed By: #### L 506.1000, L100.0100, L501.9985, L501.5200, L500.4050, L500.4100, L501.9520 ####[facility] [address] [place], [address] GFR/1.73 sq M.predicted among non-blacks MDRD (S/P/Bld) [Vol rate/Area] 36 mL/min/{1.73_m2} Low >60 [facility] Comment on above: Result Comment: Non- GFR Calc Performed By: #### L 506.1000, L100.0100, L501.9985, L501.5200, L500.4050, L500.4100, L501.9520 ####[facility] [address] [place], [address] Globulin (S) [Mass/Vol] 3.5 g/dL Normal 2.2-4.2 [facility] Comment on above: Performed By: #### L 506.1000, L100.0100, L501.9985, L501.5200, L500.4050, L500.4100, L501.9520 ####[facility] [address] [place], [place], [phone] Glucose [Mass/Vol] 170 mg/dL High 74-106 [facility] Comment on above: Result Comment: Fast ing Glucose result greater than or equal to 126 mg/dLsuggests DIABETES MELLITUS per A.D.A. criteria. Performed By: #### L 506.1000, L100.0100, L501.9985, L501.5200, L500.4050, L500.4100, L501.9520 ####[facility] [address] [place], [address] Potassium [Moles/Vol] 3.1 mmol/L Low 3.5-5.1 [facility] Comment on above: Performed By: #### L 506.1000, L100.0100, L501.9985, L501.5200, L500.4050, L500.4100, L501.9520 ####[facility] [address] [place], [address] Sodium [Moles/Vol] 142 mmol/L Normal 136-145 [facility] Comment on above: Performed By: #### L 506.1000, L100.0100, L501.9985, L501.5200, L500.4050, L500.4100, L501.9520 ####[facility] [address] [place], [address] T PROT 7.0 g/dL Normal 6.4-8.2 [facility] Comment on above: Performed By: #### L 506.1000, L100.0100, L501.9985, L501.5200, L500.4050, L500.4100, L501.9520 ####[facility] [address] [place], [address] Urea nitrogen [Mass/Vol] 28 mg/dL High 7-18 [facility] Comment on above: Performed By: #### L 506.1000, L100.0100, L501.9985, L501.5200, L500.4050, L500.4100, L501.9520 ####[facility] [address] [place], [address] Ferritinon 11-15-2023 Ferritin [Mass/Vol] 705 ng/mL High 26-388 [facility] Comment on above: Order Comment: DR.BA MERCADO ORDERD-CBC, FERRITIN AND HARSHA ORDERED- ALL OTHER TESTS Performed By: #### L 503.6550, L503.6150, L100.0500 ####[facility] [address] [place], [address] Hemoglobin A1con 11-15-2023 HbA1c (Bld) [Mass fraction] 6.2 % High 3.8-5.6 [facility] Comment on above: Result Comment: Norm al < 5.7 % Prediabetic 5.7 - 6.4 % Diabetic >or= 6.5 % Please note range changes. Performed By: #### L 506.1000, L100.0100, L501.9985, L501.5200, L500.4050, L500.4100, L501.9520 ####[facility] [address] [place], [address] Ironon 11-15-2023 Iron [Mass/Vol] 42 ug/dL Low 65-175 [facility] Comment on above: Order Comment: DR.BA MERCADO ORDERD-CBC, FERRITIN AND IRON ORDERED- ALL OTHER TESTS Performed By: #### L 503.6550, L503.6150, L100.0500 ####[facility] [address] [place], [address] Lipid Profileon 11-15-2023 Cholesterol [Mass/Vol] 142 mg/dL Normal 200 [facility] Comment on above: Result Comment: <200 mg/dL Desirable 200-240 mg/dL Borderline >240 mg/dL High Risk Performed By: #### L 506.1000, L100.0100, L501.9985, L501.5200, L500.4050, L500.4100, L501.9520 ####[facility] [address] [place], [address] Cholesterol in HDL [Mass/Vol] 32 mg/dL Low [facility] Comment on above: Result Comment: The drugs N-Acetylcysteine and Metamizole may falselydepress this assay. Reference Range HDL <40 mg/dL Low HDL Cholesterol HDL >or= 60 mg/dL High HDL Cholesterol Performed By: #### L 506.1000, L100.0100, L501.9985, L501.5200, L500.4050, L500.4100, L501.9520 ####[facility] [address] [place], [address] Cholesterol in LDL [Mass/Vol] 62 mg/dL Normal 0-130 [facility] Comment on above: Performed By: #### L 506.1000, L100.0100, L501.9985, L501.5200, L500.4050, L500.4100, L501.9520 ####[facility] [address] [place], [address] Cholesterol in VLDL [Mass/Vol] 48 mg/dL High 5-40 [facility] Comment on above: Performed By: #### L 506.1000, L100.0100, L501.9985, L501.5200, L500.4050, L500.4100, L501.9520 ####[facility] [address] [place], [address] Triglyceride [Mass/Vol] 238 mg/dL High [facility] Comment on above: Result Comment: The drugs N-Acetylcysteine and Metamizole may falselydepress this assay.Serum Triglycerides Reference Interval Normal <150 mg/dL Borderline high 150 - 199 mg/dL High 200 - 499 mg/dL Very High > or = 500 mg/dL Performed By: #### L 506.1000, L100.0100, L501.9985, L501.5200, L500.4050, L500.4100, L501.9520 ####[facility] [address] [place], [address] Magnesiumon 11-15-2023 Magnesium [Mass/Vol] 2.2 mg/dL Normal 1.6-2.6 [facility] Comment on above: Performed By: #### L 506.1000, L100.0100, L501.9985, L501.5200, L500.4050, L500.4100, L501.9520 ####[facility] [address] [place], [address] Thyroid Stim Hormone (TSH)on 11-15-2023 TSH 1.460 uIU/mL Normal 0.358-3.740 [facility] Comment on above: Performed By: #### L 506.1000, L100.0100, L501.9985, L501.5200, L500.4050, L500.4100, L501.9520 ####[facility] [address] [place], [address] Vitamin D,25 Hydroxyon 11-14 Vitamin D 25-OH 48.4 ng/mL Normal [facility] Comment on above: Result Comment: Nicole min D 25(OH) Status Range Deficiency <20 ng/mL (50nmol/L) Insufficiency 20 - 30 ng/mL (50 - 75 nmol/L) Sufficiency 30 - 100 ng/mL (75 - 250 nmol/L) Toxicity >100 ng/mL (>250 nmol/L) Performed By: #### L 506.1000, L100.0100, L501.9985, L501.5200, L500.4050, L500.4100, L501.9520 ####[facility] [address] [place], [address] Pulmonary Visit Reporton Pulmonary Visit Report Normal [facility] MR/BMS.IMBon 11-10-2023 MR/BMS.IMB Normal [facility] Neurology Visit Reporton Neurology Visit Report Normal [facility] Urine Cultureon 09-09-2023 URC Mixed Gram Positive Organisms [place] Count 1000-10,000 [facility]IX[facility] Mixed contaminants. Submit a new specimen if indicated. Normal [facility] Comment on above: Performed By: #### L 400.0001, M1.0 ####[facility] [address] [place], [address] Urinalysis, Completeon 09-06 RBC 0-5 SEEN Normal 0-5 [facility] Comment on above: Order Comment: COLLE CTOR TO SPECIFY Performed By: #### L 400.0001, M100.2200 ####[facility] [address] [place], [address] BACTERIA 0 SEEN Normal None Seen [facility] Comment on above: Order Comment: JENA CTOR TO SPECIFY Performed By: #### L 400.0001, M100.2200 ####[facility] [address] [place], [address] EPI,SQUAMOUS 0 SEEN Normal 0-5 [facility] Comment on above: Order Comment: JENA CTOR TO SPECIFY Performed By: #### L 400.0001, M100.2200 ####[facility] [address] [place], [address] Mucus Ql (Urine sed) 0 SEEN Normal [facility] Comment on above: Order Comment: JENA CTOR TO SPECIFY Performed By: #### L 400.0001, M100.2200 ####[facility] [address] [place], [address] WBC 0 SEEN Normal 0-5 [facility] Comment on above: Order Comment: JENA CTOR TO SPECIFY Performed By: #### L 400.0001, M100.2200 ####[facility] [address] [place], [address] Thin prep Papanicolaou smear with manual screeningOrdered By: Jessica Meyer on 07-14-2023 Thin prep Papanicolaou smear with manual screening 244 mg/dL 74-106 [facility] Absolute lymphocyte countOrd ered By: Jessica Meyer on 07-12-2023 Lymphocytes Auto (Unsp spec) [#/Vol] 1.29 10*3/uL 0.83-4.51 [facility] Automated lymphocyte count a s percentage of total leukocytesOrdered By: Jessica Meyer on 07-12-2023 Lymphocytes/100 WBC Auto (Unsp spec) 13.2 % 19-41 [facility] Basophil percentageOrdered B y: Jessica Meyer on 07-12-2023 Basophil percentage 8.7 g/dL 13.0-16.5 [facility] Basophil percentage 140 mg/dL 74-106 [facility] Basophil percentage 142 mmol/L 136-145 [facility] Basophil percentage 3.4 mmol/L 3.5-5.1 [facility] Basophil percentage 105 mmol/L 98-107 [facility] Basophils (Bld) [#/Vol] 9.8 10*3/uL 4.4-11.0 [facility] Basophils (Bld) [#/Vol] 7.0 10*3/uL 2.0-7.7 [facility] Basophils/100 WBC (Bld) 71.5 % 47-70 [facility] Basophils/100 WBC (Bld) 10.6 % 0-10 [facility] Basophils/100 WBC (Bld) 3.6 % 0-5 [facility] Basophils/100 WBC (Bld) 0.5 % 0-1 [facility] Determination of erythrocyte mean corpuscular volume (MCV)Ordered By: Jessica Meyer on 07-12-2023 MCV (RBC) [Entitic vol] 93.4 fL 80-94 [facility] Erythrocyte distribution wid th ratioOrdered By: Jessica Meyer on 07-12-2023 Erythrocyte distribution width (RBC) [Ratio] 13.9 % 11.6-14.6 [facility] Erythrocyte distribution wid th standard deviationOrdered By: Jessica Meyer on 07-12-2023 Erythrocyte distribution width (RBC) [Entitic vol] 47.4 fL 35.1-43.9 [facility] Hematocrit Auto (Bld) [Volum e fraction]Ordered By: Jessica Meyer on 07-12-2023 Hematocrit (Bld) [Volume fraction] 27.1 % 40-54 [facility] Immature granulocytes/100 WB C Auto (Bld)Ordered By: Jessica Meyer on 07-12-2023 Immature granulocytes/100 WBC (Bld) 0.600 % 0.0-0.9 [facility] No Panel InformationOrdered By: Jessica Meyer on 07-12-2023 30.0 pg 27.0-32.0 [facility] 32.1 g/dL 32-36 [facility] 311 K/mm3 150-450 [facility] 9.8 fl 6.2-12.0 [facility] 0 % 0-5 [facility] 36 mL/min >60 [facility] 44 mL/min >60 [facility] 32.50 ml/min [facility] 30.2 RATIO 10-20 [facility] 34.0 mmol/L 21.0-32.0 [facility] RBC Auto (Bld) [#/Vol]Ordere d By: Jessica Meyer on 07-12-2023 RBC (Bld) [#/Vol] 2.90 10*6/uL 4.6-6.2 [facility] Serum or plasma calcium shayan urement (mass/volume)Ordered By: Jessica Meyer on 07-12-2023 Calcium [Mass/Vol] 8.9 mg/dL 8.5-10.1 [facility] Serum or plasma creatinine m easurement (mass/volume)Ordered By: Jessica Meyer on 07-12-2023 Creatinine [Mass/Vol] 1.89 mg/dL 0.70-1.30 [facility] Serum or plasma urea nitroge n measurement (mass/volume)Ordered By: Jessica Meyer on 07-12-2023 Urea nitrogen [Mass/Vol] 57 mg/dL 7-18 [facility] Thin prep Papanicolaou smear with manual screeningOrdered By: Jessica Meyer on 07-12-2023 Thin prep Papanicolaou smear with manual screening 161 mg/dL 74-106 [facility] Thin prep Papanicolaou smear with manual screening 3 5-15 [facility] Basophil percentageOrdered B y: Shelia Davenport on 07-10-2023 Basophil percentage 0 SEEN /hpf 0-5 [facility] Bilirubin Test strip Ql (U)O rdered By: Shelia Davenport on 07-10-2023 Bilirubin Ql (U) Negative Negative [facility] Culture, urineOrdered By: Er norman Belcher on 07-10-2023 Bacteria identified Cx Nom (U) Culture exhibits no growth. [facility] Ketones Test strip Ql (U)Ord ered By: Shelia Davenport on 07-10-2023 Ketones Ql (U) Negative Negative [facility] Mucus LM Ql (Urine sed)Order ed By: Shelia Davenport on 07-10-2023 Mucus Ql (Urine sed) 0 SEEN /hpf [facility] Nitrite Test strip Ql (U)Ord ered By: Shelia Davenport on 07-10-2023 Nitrite Ql (U) Negative Negative [facility] No Panel InformationOrdered By: Remus Davenport on 07-10-2023 0 SEEN /hpf 0-5 [facility] Protein Test strip Ql (U)Ord ered By: Shelia Davenport on 07-10-2023 Protein Ql (U) 30 mg/dl Negative [facility] Serum or plasma cortisol genaro surement (mass/volume)Ordered By: Jesús Belcher on 07-10-2023 Cortisol [Mass/Vol] 31.90 ug/dL 3.44-22.45 [facility] Squamous epithelial cells de tection in urine sediment by light microscopyOrdered By: Shelia Davenport on 07-10-2023 Epithelial cells.squamous LM Ql (Urine sed) 0 SEEN /hpf 0-5 [facility] Urine Legionella pneumophila antigen detectionOrdered By: Jesús Belcher on 07-10-2023 L. pneumophila Ag Ql (U) [facility] Urine blood detectionOrdered By: Shelia Davenport on 07-10-2023 RBC Ql (U) 10 /ul Negative [facility] Urine clarityOrdered By: Gisele us Issac on 07-10-2023 Clarity (U) Clear Clear [facility] Urine color determinationOrd ered By: Shelia Davenport on 07-10-2023 Color (U) Yellow Yellow [facility] Urine glucose detectionOrder ed By: Shelia Davenport on 07-10-2023 Glucose Ql (U) Normal mg/dl Normal [facility] Urine leukocyte esterase det ection by dipstickOrdered By: Shelia Davenport on 07-10-2023 Leukocyte esterase Test strip Ql (U) Negative Negative [facility] Urine pHOrdered By: Shelia Un gur on 07-10-2023 pH (U) 6.0 [pH] 5.0 - 8.0 [facility] Urine sediment bacteria coun t by microscopy (number/high power field)Ordered By: Shelia Davenport on 07-10-2023 Bacteria LM.HPF (Urine sed) [#/Area] 0 /[HPF] None Seen [facility] Urine specific gravity measu rementOrdered By: Shelia Davenport on 07-10-2023 Specific gravity (U) [Rel density] 1.015 1.002-1.030 [facility] Urine urobilinogen measureme ntOrdered By: Shelia Davenport on 07-10-2023 Urobilinogen Ql (U) Normal mg/dl Normal [facility] Absolute lymphocyte countOrd ered By: Shelia Davenport on 07-09-2023 Lymphocytes Auto (Unsp spec) [#/Vol] 1.10 10*3/uL 0.83-4.51 [facility] Automated lymphocyte count a s percentage of total leukocytesOrdered By: Shelia Davenport on 07-09-2023 Lymphocytes/100 WBC Auto (Unsp spec) 10.9 % 19-41 [facility] Basophil percentageOrdered B y: Jesúsnorman Belcher on 07-09-2023 Basophil percentage < 10.0 IU/mL <15 [facility] Basophil percentageOrdered B y: Shelia Davenport on 07-09-2023 Basophils/100 WBC (Bld) 0.5 % 0-1 [facility] Chloride [Moles/Vol] 103 mmol/L 98-107 [facility] Eosinophils/100 WBC (Bld) 3.4 % 0-5 [facility] Glucose [Mass/Vol] 124 mg/dL 74-106 [facility] Comment on above: Fasting Glucose resu lt from 100 to 125 mg/dL suggests IMPAIRED HOMEOSTASIS per A.D.A. criteria. Hemoglobin (Bld) [Mass/Vol] 8.7 g/dL 13.0-16.5 [facility] Monocytes/100 WBC (Bld) 11.1 % 0-10 [facility] Neutrophils (Bld) [#/Vol] 7.5 10*3/uL 2.0-7.7 [facility] Neutrophils/100 WBC (Bld) 73.6 % 47-70 [facility] Potassium [Moles/Vol] 3.8 mmol/L 3.5-5.1 [facility] Sodium [Moles/Vol] 138 mmol/L 136-145 [facility] WBC (Bld) [#/Vol] 10.1 10*3/uL 4.4-11.0 [facility] Determination of erythrocyte mean corpuscular volume (MCV)Ordered By: Shelia Davenport on 07-09-2023 MCV (RBC) [Entitic vol] 93.0 fL 80-94 [facility] Erythrocyte distribution wid th ratioOrdered By: [place]on Issac on 07-09-2023 Erythrocyte distribution width (RBC) [Ratio] 14.2 % 11.6-14.6 [facility] Erythrocyte distribution wid th standard deviationOrdered By: [place] Issac on 07-09-2023 Erythrocyte distribution width (RBC) [Entitic vol] 47.8 fL 35.1-43.9 [facility] Erythrocyte sedimentation ra teOrdered By: Shankar Nevarez on 07-09-2023 ESR (Bld) [Velocity] 65 mm/h 0-20 [facility] Hematocrit Auto (Bld) [Volum e fraction]Ordered By: [place] Issac on 07-09-2023 Hematocrit (Bld) [Volume fraction] 26.6 % 40-54 [facility] Immature granulocytes/100 WB C Auto (Bld)Or[facility] By: [facility] Immature granulocytes/100 WBC (Bld) 0.500 % 0.0-0.9 [facility] Comment on above: IG% - Immature Granu locytes (promyelocytes, myelocytes and metamyelocytes) > 1% indicates that a LEFT SHIFT is Present. Laboratory - Chemistry and C hemistry - challengeOrdered By: [facility] on 07-09-2023 CO2 [Moles/Vol] 28.0 mmol/L 21.0-32.0 [facility] Natriuretic peptide B (Bld) [Mass/Vol] 289.5 pg/mL 0-100 [facility] Urea nitrogen/Creatinine [Mass ratio] 24.4 mg/mg 10-20 [facility] Laboratory - Hematology and Cell countsOrdered By: [facility] 07-[facility]-2023 MCH (RBC) [Entitic mass] 30.4 pg 27.0-32.0 [facility] MCHC (RBC) [Mass/Vol] 32.7 g/dL 32-36 [facility] Nucleated RBC/100 WBC (Bld) [Ratio] 0 % 0-5 [facility] Platelet mean volume (Bld) [Entitic vol] 10.3 fL 6.2-12.0 [facility] Platelets (Bld) [#/Vol] 286 10*3/uL 150-450 [facility] Laboratory - Microbiology an d Antimicrobial susceptibilityOrdered By: Shelia Davenport on 07-09-2023 SARS-CoV-2 (COVID-19) RNA GONSALO+probe Ql (Unsp spec) [facility] No Panel InformationOrdered By: Jessú Belcher on 07-09-2023 Negative Negative [facility] Not Reportable [facility] 2.7 mg/dL 1.6-2.6 [facility] No Panel InformationOrdered By: Shelia Davenport on 07-09-2023 Estimated Creatinine Clearance Calc 27.61 ml/min [facility] Estimated GFR (MDRD) Amer 33 mL/min >60 [facility] Comment on above: GFR Calc Estimated GFR (MDRD) Non-Af Amer 27 mL/min >60 [facility] Comment on above: Non- GFR Calc Troponin I High Sensitivity 12 pg/mL 3.0-78.0 [facility] Comment on above: Please Note: [place] t Units and Gender Specific Reference Ranges. For more information see Policy Stat Procedure [place] High Sensitivity Troponin (TNIH) and attachments. 12 pg/mL 3.0-78.0 [facility] 289.5 pg/mL 0-100 [facility] No Panel InformationOrdered By: Shankar Nevarez on 07-09-2023 137.00 mg/L 0.0-3.0 [facility] RBC Auto (Bld) [#/Vol]Ordere d By: Shelia Davenport on 07-09-2023 RBC (Bld) [#/Vol] 2.86 10*6/uL 4.6-6.2 [facility] Serum DNA double strand anti body assay (units/volume)Ordered By: Jesús Belcher on 07-09-2023 DNA double strand Ab Qn (S) Not Reportable [facility] Serum Scl-70 antibody assay (units/volume)Ordered By: Jesús Belcher on 07-09-2023 SCL-70 extractable nuclear Ab Qn (S) Not Reportable [facility] Serum or plasma calcium shayan urement (mass/volume)Ordered By: Shelia Davenport on 07-09-2023 Calcium [Mass/Vol] 8.4 mg/dL 8.5-10.1 [facility] Serum or plasma creatinine m easurement (mass/volume)Ordered By: Shelia Davenport on 07-09-2023 Creatinine [Mass/Vol] 2.42 mg/dL 0.70-1.30 [facility] Comment on above: The validity of the calculated GFR & GFRAA in patients over 70 years has not been determined. Clinical correlation is essential. Serum or plasma urea nitroge n measurement (mass/volume)Ordered By: Shelia Davenport on 07-09-2023 Urea nitrogen [Mass/Vol] 59 mg/dL 7-18 [facility] Stool gastrointestinal hemog lobin detection by immunologic methodOrdered By: Shelia Davenport on 07-09-2023 Lower GI hemoglobin IA Ql (Stl) [facility] Thin prep Papanicolaou smear with manual screeningOrdered By: [facility] on 07-09-2023 Thin prep Papanicolaou smear with manual screening 7 5-15 [facility] Absolute lymphocyte countOrd ered By: Vida Martinez on 07-06-2023 Lymphocytes Auto (Unsp spec) [#/Vol] 0.84 10*3/uL 0.83-4.51 [facility] Automated lymphocyte count a s percentage of total leukocytesOrdered By: Vida Martinez on 07-06-2023 Lymphocytes/100 WBC Auto (Unsp spec) 8.3 % 19-41 [facility] Basophil percentageOrdered B y: Vida Martinez on 07-06-2023 Basophil percentage 9.9 g/dL 13.0-16.5 [facility] Basophil percentage 115 mg/dL 74-106 [facility] Basophil percentage 137 mmol/L 136-145 [facility] Basophil percentage 4.2 mmol/L 3.5-5.1 [facility] Basophil percentage 100 mmol/L 98-107 [facility] Basophils (Bld) [#/Vol] 10.1 10*3/uL 4.4-11.0 [facility] Basophils (Bld) [#/Vol] 8.0 10*3/uL 2.0-7.7 [facility] Basophils/100 WBC (Bld) 0.3 % 0-1 [facility] Basophils/100 WBC (Bld) 79.8 % 47-70 [facility] Basophils/100 WBC (Bld) 10.2 % 0-10 [facility] Basophils/100 WBC (Bld) 1.0 % 0-5 [facility] Chloride [Moles/Vol] 100 mmol/L 98-107 [facility] Eosinophils/100 WBC (Bld) 1.0 % 0-5 [facility] Glucose [Mass/Vol] 115 mg/dL 74-106 [facility] Comment on above: Fasting Glucose resu lt from 100 to 125 mg/dL suggests IMPAIRED HOMEOSTASIS per A.D.A. criteria. Hemoglobin (Bld) [Mass/Vol] 9.9 g/dL 13.0-16.5 [facility] Monocytes/100 WBC (Bld) 10.2 % 0-10 [facility] Neutrophils (Bld) [#/Vol] 8.0 10*3/uL 2.0-7.7 [facility] Neutrophils/100 WBC (Bld) 79.8 % 47-70 [facility] Potassium [Moles/Vol] 4.2 mmol/L 3.5-5.1 [facility] Sodium [Moles/Vol] 137 mmol/L 136-145 [facility] WBC (Bld) [#/Vol] 10.1 10*3/uL 4.4-11.0 [facility] Determination of erythrocyte mean corpuscular volume (MCV)Ordered By: Vida Martinez on 07-06-2023 MCV (RBC) [Entitic vol] 95.3 fL 80-94 [facility] Erythrocyte distribution wid th ratioOrdered By: Vida Martinez on 07-06-2023 Erythrocyte distribution width (RBC) [Ratio] 14.4 % 11.6-14.6 [facility] Erythrocyte distribution wid th standard deviationOrdered By: Vida Martinez on 07-06-2023 Erythrocyte distribution width (RBC) [Entitic vol] 50.2 fL 35.1-43.9 [facility] Hematocrit Auto (Bld) [Volum e fraction]Ordered By: Vida Martinez on 07-06-2023 Hematocrit (Bld) [Volume fraction] 30.4 % 40-54 [facility] Immature granulocytes/100 WB C Auto (Bld)Ordered By: Vida Martinez on 07-06-2023 Immature granulocytes/100 WBC (Bld) 0.400 % 0.0-0.9 [facility] Comment on above: IG% - Immature Granu locytes (promyelocytes, myelocytes and metamyelocytes) > 1% indicates that a LEFT SHIFT is Present. Iron measurement (mass/mass) Ordered By: Jennifer Watt on 07-06-2023 Iron (Unsp spec) [Mass/Mass] 17 ug/dL 65-175 [facility] Laboratory - Chemistry and C hemistry - challengeOrdered By: Vida Martinez on 07-06-2023 CO2 [Moles/Vol] 28.0 mmol/L 21.0-32.0 [facility] Natriuretic peptide B (Bld) [Mass/Vol] 320.1 pg/mL 0-100 [facility] Urea nitrogen/Creatinine [Mass ratio] 19.8 mg/mg 10-20 [facility] Laboratory - Hematology and Cell countsOrdered By: Vida Martinez on 07-06-2023 MCH (RBC) [Entitic mass] 31.0 pg 27.0-32.0 [facility] MCHC (RBC) [Mass/Vol] 32.6 g/dL 32-36 [facility] Nucleated RBC/100 WBC (Bld) [Ratio] 0 % 0-5 [facility] Platelet mean volume (Bld) [Entitic vol] 11.0 fL 6.2-12.0 [facility] Platelets (Bld) [#/Vol] 256 10*3/uL 150-450 [facility] No Panel InformationOrdered By: Jennifer Watt on 07-06-2023 Folate 46.40 ng/mL 3.1-55.4 [facility] Total Iron Binding Capacity 159 ug/dL 250-450 [facility] 159 ug/dL 250-450 [facility] 46.40 ng/mL 3.1-55.4 [facility] No Panel InformationOrdered By: Vida Martinez on 07-06-2023 Estimated GFR (MDRD) Amer 33 mL/min >60 [facility] Comment on above: GFR Calc Estimated GFR (MDRD) Non-Af Amer 27 mL/min >60 [facility] Comment on above: Non- GFR Calc 31.0 pg 27.0-32.0 [facility] 32.6 g/dL 32-36 [facility] 256 K/mm3 150-450 [facility] 11.0 fl 6.2-12.0 [facility] 0 % 0-5 [facility] 27 mL/min >60 [facility] 33 mL/min >60 [facility] 19.8 RATIO 10-20 [facility] 28.0 mmol/L 21.0-32.0 [facility] 320.1 pg/mL 0-100 [facility] RBC Auto (Bld) [#/Vol]Ordere d By: Vida Martinez on 07-06-2023 RBC (Bld) [#/Vol] 3.19 10*6/uL 4.6-6.2 [facility] Serum or plasma calcium shayan urement (mass/volume)Ordered By: Vida Martinez on 07-06-2023 Calcium [Mass/Vol] 8.9 mg/dL 8.5-10.1 [facility] Serum or plasma creatinine m easurement (mass/volume)Ordered By: Vida Martinez on 07-06-2023 Creatinine [Mass/Vol] 2.43 mg/dL 0.70-1.30 [facility] Comment on above: The validity of the calculated GFR & GFRAA in patients over 70 years has not been determined. Clinical correlation is essential. Serum or plasma iron saturat ion measurement (mass fraction)Ordered By: Jennifer Watt on 07-06-2023 Iron saturation [Mass fraction] 10.7 % 15.0-55.0 [facility] Serum or plasma thyroid stim ulating hormone (TSH) measurement (units/volume)Ordered By: Vida Martinez on 07-06-2023 TSH Qn 0.88 uIU/mL 0.358-3.74 [facility] Serum or plasma urea nitroge n measurement (mass/volume)Ordered By: Vida Martinez on 07-06-2023 Urea nitrogen [Mass/Vol] 48 mg/dL 7-18 [facility] Thin prep Papanicolaou smear with manual screeningOrdered By: Vida Martinez on 07-06-2023 Thin prep Papanicolaou smear with manual screening 9 5-15 [facility] Basophil percentageOrdered B y: Costa Figueroa on 03-29-2023 Basophil percentage 12.1 g/dL 13.0-16.5 [facility] Basophils (Bld) [#/Vol] 7.4 10*3/uL 4.4-11.0 [facility] Hemoglobin (Bld) [Mass/Vol] 12.1 g/dL 13.0-16.5 [facility] WBC (Bld) [#/Vol] 7.4 10*3/uL 4.4-11.0 [facility] Determination of erythrocyte mean corpuscular volume (MCV)Ordered By: Costa Figueroa on 03-29-2023 MCV (RBC) [Entitic vol] 91.5 fL 80-94 [facility] Erythrocyte distribution wid th ratioOrdered By: Costahannah Figueroa on 03-29-2023 Erythrocyte distribution width (RBC) [Ratio] 15.4 % 11.6-14.6 [facility] Erythrocyte distribution wid th standard deviationOrdered By: Costa Figueroa on 03-29-2023 Erythrocyte distribution width (RBC) [Entitic vol] 51.3 fL 35.1-43.9 [facility] Hematocrit Auto (Bld) [Volum e fraction]Ordered By: Costa Figueroa on 03-29-2023 Hematocrit (Bld) [Volume fraction] 37.5 % 40-54 [facility] Iron measurement (mass/mass) Ordered By: Costa Figueroa on 03-29-2023 Iron (Unsp spec) [Mass/Mass] 56 ug/dL 65-175 [facility] Laboratory - Chemistry and C hemistry - challengeOrdered By: Costa Figueroa on 03-29-2023 Ferritin [Mass/Vol] 184 ng/mL 26-388 [facility] Laboratory - Hematology and Cell countsOrdered By: Costa Figueroa on 03-29-2023 MCH (RBC) [Entitic mass] 29.5 pg 27.0-32.0 [facility] MCHC (RBC) [Mass/Vol] 32.3 g/dL 32-36 [facility] Platelets (Bld) [#/Vol] 234 10*3/uL 150-450 [facility] No Panel InformationOrdered By: Costahannah Figueroa on 03-29-2023 29.5 pg 27.0-32.0 [facility] 32.3 g/dL 32-36 [facility] 234 K/mm3 150-450 [facility] 184 ng/mL 26-388 [facility] Platelet mean volume Laurent-Ec ker (Bld) [Entitic vol]Ordered By: Costa Figueroa on 03-29-2023 Platelet mean volume (Bld) [Entitic vol] 11.0 fL 6.2-12.0 [facility] RBC Auto (Bld) [#/Vol]Ordere d By: Costa Figueroa on 03-29-2023 RBC (Bld) [#/Vol] 4.10 10*6/uL 4.6-6.2 [facility] Absolute lymphocyte countOrd ered By: Jennifer Watt on 02-10-2023 Lymphocytes Auto (Unsp spec) [#/Vol] 1.32 10*3/uL 0.83-4.51 [facility] Basophil percentageOrdered B y: Jennifer Watt on 02-10-2023 Basophil percentage 136 mg/dL 74-106 [facility] Basophil percentage 7.6 g/dL 6.4-8.2 [facility] Basophil percentage 0.40 mg/dL 0.20-1.00 [facility] Basophil percentage 138 mmol/L 136-145 [facility] Basophil percentage 3.5 mmol/L 3.5-5.1 [facility] Basophil percentage 99 mmol/L 98-107 [facility] Basophils (Bld) [#/Vol] 7.5 10*3/uL 4.4-11.0 [facility] Basophils (Bld) [#/Vol] 4.8 10*3/uL 2.0-7.7 [facility] Basophils/100 WBC (Bld) 64.2 % 47-70 [facility] Basophils/100 WBC (Bld) 6.5 % 0-5 [facility] Basophils/100 WBC (Bld) 0.7 % 0-1 [facility] Bilirubin [Mass/Vol] 0.40 mg/dL 0.20-1.00 [facility] Comment on above: For patients on eltr ombopag therapy, use of Dimension [place] TBIL is not recommended. Chloride [Moles/Vol] 99 mmol/L 98-107 [facility] Eosinophils/100 WBC (Bld) 6.5 % 0-5 [facility] Glucose [Mass/Vol] 136 mg/dL 74-106 [facility] Comment on above: Fasting Glucose resu lt greater than or equal to 126 mg/dL suggests DIABETES MELLITUS per A.D.A. criteria. Neutrophils (Bld) [#/Vol] 4.8 10*3/uL 2.0-7.7 [facility] Neutrophils/100 WBC (Bld) 64.2 % 47-70 [facility] Potassium [Moles/Vol] 3.5 mmol/L 3.5-5.1 [facility] Protein [Mass/Vol] 7.6 g/dL 6.4-8.2 [facility] Sodium [Moles/Vol] 138 mmol/L 136-145 [facility] WBC (Bld) [#/Vol] 7.5 10*3/uL 4.4-11.0 [facility] Blood erythrocytes count (nu mber/volume)Ordered By: Jennifer Watt on 02-10-2023 RBC (Bld) [#/Vol] 3.96 10*6/uL 4.6-6.2 [facility] Blood hemoglobin measurement (mass/volume)Ordered By: Jennifer Watt on 02-10-2023 Hemoglobin (Bld) [Mass/Vol] 11.6 g/dL 13.0-16.5 [facility] Blood lymphocytes/100 leukoc ytesOrdered By: Jennifer Watt on 02-10-2023 Lymphocytes/100 WBC (Bld) 17.6 % 19-41 [facility] Blood monocytes/100 leukocyt esOrdered By: Jennifer Watt on 02-10-2023 Monocytes/100 WBC (Bld) 10.9 % 0-10 [facility] Blood platelet mean volumeOr dered By: Jennifer Watt on 02-10-2023 Platelet mean volume (Bld) [Entitic vol] 11.3 fL 6.2-12.0 [facility] Determination of erythrocyte mean corpuscular volume (MCV)Ordered By: Jennifer Watt on 02-10-2023 MCV (RBC) [Entitic vol] 92.7 fL 80-94 [facility] Hematocrit Auto (Bld) [Volum e fraction]Ordered By: Jennifer Watt on 02-10-2023 Hematocrit (Bld) [Volume fraction] 36.7 % 40-54 [facility] Laboratory - Chemistry and C hemistry - challengeOrdered By: Jennifer Watt on 02-10-2023 ALP [Catalytic activity/Vol] 58 U/L 45-117 [facility] ALT [Catalytic activity/Vol] 17 U/L 16-61 [facility] CO2 [Moles/Vol] 31.0 mmol/L 21.0-32.0 [facility] Globulin (S) [Mass/Vol] 3.9 g/dL 2.2-4.2 [facility] Urea nitrogen/Creatinine [Mass ratio] 23.4 mg/mg 10-20 [facility] Laboratory - Hematology and Cell countsOrdered By: Jennifer Watt on 02-10-2023 Erythrocyte distribution width (RBC) [Entitic vol] 53.6 fL 35.1-43.9 [facility] Erythrocyte distribution width (RBC) [Ratio] 15.8 % 11.6-14.6 [facility] Immature granulocytes/100 WBC (Bld) 0.100 % 0.0-0.9 [facility] Comment on above: IG% - Immature Granu locytes (promyelocytes, myelocytes and metamyelocytes) > 1% indicates that a LEFT SHIFT is Present. MCH (RBC) [Entitic mass] 29.3 pg 27.0-32.0 [facility] Nucleated RBC/100 WBC (Bld) [Ratio] 0 % 0-5 [facility] MCHC Auto (RBC) [Mass/Vol]Or dered By: Jennifer Watt on 02-10-2023 MCHC (RBC) [Mass/Vol] 31.6 g/dL 32-36 [facility] No Panel InformationOrdered By: Jennifer Watt on 02-10-2023 Estimated GFR (MDRD) Amer 43 mL/min >60 [facility] Comment on above: GFR Calc Estimated GFR (MDRD) Non-Af Amer 36 mL/min >60 [facility] Comment on above: Non- GFR Calc Prostate Specific Antigen Screen 0.51 ng/mL 0.00-4.00 [facility] Comment on above: This test was perfor med using the TPSA assay method for [employer] chemistry system. Values obtained with differentassay methods cannot be used interchangably.When changing PSA assays in the course of monitoring apatient, additional sequential testing should be carriedout to confirm baseline values. 29.3 pg 27.0-32.0 [facility] 15.8 % 11.6-14.6 [facility] 53.6 fl 35.1-43.9 [facility] 0.100 % 0.0-0.9 [facility] 0 % 0-5 [facility] 36 mL/min >60 [facility] 43 mL/min >60 [facility] 23.4 RATIO 10-20 [facility] 3.9 g/dL 2.2-4.2 [facility] 58 U/L 45-117 [facility] 17 U/L 16-61 [facility] 31.0 mmol/L 21.0-32.0 [facility] 0.51 ng/mL 0.00-4.00 [facility] Platelets bldOrdered By: Sharyn Watt on 02-10-2023 Platelets (Bld) [#/Vol] 216 10*3/uL 150-450 [facility] Serum or plasma albumin shayan urement (mass/volume)Ordered By: Jennifer Watt on 02-10-2023 Albumin [Mass/Vol] 3.7 g/dL 3.2-5.0 [facility] Serum or plasma albumin/glob ulin mass ratioOrdered By: Jennifer Watt on 02-10-2023 Albumin/Globulin [Mass ratio] 0.9 {ratio} 0.9-2.4 [facility] Serum or plasma calcium shayan urement (mass/volume)Ordered By: Jennifer Watt on 02-10-2023 Calcium [Mass/Vol] 8.9 mg/dL 8.5-10.1 [facility] Serum or plasma creatinine m easurement (mass/volume)Ordered By: Jennifer Watt on 02-10-2023 Creatinine [Mass/Vol] 1.92 mg/dL 0.70-1.30 [facility] Comment on above: The validity of the calculated GFR & GFRAA in patients over 70 years has not been determined. Clinical correlation is essential. Serum or plasma urea nitroge n measurement (mass/volume)Ordered By: Jennifer Watt on 02-10-2023 Urea nitrogen [Mass/Vol] 45 mg/dL 7-18 [facility] Thin prep Papanicolaou smear with manual screeningOrdered By: Jennifer Watt on 02-10-2023 Thin prep Papanicolaou smear with manual screening 15 U/L 15-37 [facility] Thin prep Papanicolaou smear with manual screening 8 5-15 [facility] Whole blood hemoglobin A1c/t otal hemoglobin ratio (mass fraction)Ordered By: Jennifer Watt on 02-10-2023 HbA1c (Bld) [Mass fraction] 6.3 % 3.8-5.6 [facility] Comment on above: Normal < 5.7 % Predi abetic 5.7 - 6.4 % Diabetic >or= 6.5 % Please note range changes. Glucose Glucometer (BldC) [M ass/Vol]Ordered By: Grey Gonsalez on 01-13-2023 Glucose [Mass/Vol] 271 mg/dL 74-106 [facility] Comment on above: MANAGEMENT OF PATIEN T CARE PER NURSING PROTOCOL Absolute lymphocyte countOrd ered By: Jennifer Watt on 01-06-2023 Lymphocytes Auto (Unsp spec) [#/Vol] 1.43 10*3/uL 0.83-4.51 [facility] Basophil percentageOrdered B y: Jennifer Watt on 01-06-2023 Basophil percentage 178 mg/dL 74-106 [facility] Basophil percentage 7.3 g/dL 6.4-8.2 [facility] Basophil percentage 0.50 mg/dL 0.20-1.00 [facility] Basophil percentage 139 mg/dL <200 [facility] Basophil percentage 181 mg/dL <199 [facility] Basophil percentage 139 mmol/L 136-145 [facility] Basophil percentage 3.9 mmol/L 3.5-5.1 [facility] Basophil percentage 100 mmol/L 98-107 [facility] Basophils (Bld) [#/Vol] 8.7 10*3/uL 4.4-11.0 [facility] Basophils (Bld) [#/Vol] 5.6 10*3/uL 2.0-7.7 [facility] Basophils/100 WBC (Bld) 64.5 % 47-70 [facility] Basophils/100 WBC (Bld) 6.2 % 0-5 [facility] Basophils/100 WBC (Bld) 1.0 % 0-1 [facility] Bilirubin [Mass/Vol] 0.50 mg/dL 0.20-1.00 [facility] Comment on above: For patients on eltr ombopag therapy, use of Dimension [place] TBIL is not recommended. Chloride [Moles/Vol] 100 mmol/L 98-107 [facility] Cholesterol [Mass/Vol] 139 mg/dL <200 [facility] Comment on above: <200 mg/dL Desirable 200-240 mg/dL Borderline >240 mg/dL High Risk Eosinophils/100 WBC (Bld) 6.2 % 0-5 [facility] Glucose [Mass/Vol] 178 mg/dL 74-106 [facility] Comment on above: Fasting Glucose resu lt greater than or equal to 126 mg/dL suggests DIABETES MELLITUS per A.D.A. criteria. Neutrophils (Bld) [#/Vol] 5.6 10*3/uL 2.0-7.7 [facility] Neutrophils/100 WBC (Bld) 64.5 % 47-70 [facility] Potassium [Moles/Vol] 3.9 mmol/L 3.5-5.1 [facility] Protein [Mass/Vol] 7.3 g/dL 6.4-8.2 [facility] Sodium [Moles/Vol] 139 mmol/L 136-145 [facility] Triglyceride [Mass/Vol] 181 mg/dL <199 [facility] Comment on above: The drugs N-Acetylcy steine and Metamizole may falsely depress this assay.Serum Triglycerides Reference Interval Normal <150 mg/dL Borderline high 150 - 199 mg/dL High 200 - 499 mg/dL Very High > or = 500 mg/dL WBC (Bld) [#/Vol] 8.7 10*3/uL 4.4-11.0 [facility] Blood erythrocytes count (nu mber/volume)Ordered By: Jennifer Watt on 01-06-2023 RBC (Bld) [#/Vol] 3.78 10*6/uL 4.6-6.2 [facility] Blood hemoglobin measurement (mass/volume)Ordered By: Jennifer Watt on 01-06-2023 Hemoglobin (Bld) [Mass/Vol] 11.4 g/dL 13.0-16.5 [facility] Blood lymphocytes/100 leukoc ytesOrdered By: Jennifer Watt on 01-06-2023 Lymphocytes/100 WBC (Bld) 16.5 % 19-41 [facility] Blood monocytes/100 leukocyt esOrdered By: Jennifer Watt on 01-06-2023 Monocytes/100 WBC (Bld) 11.5 % 0-10 [facility] Blood platelet mean volumeOr dered By: Jennifer Watt on 01-06-2023 Platelet mean volume (Bld) [Entitic vol] 10.9 fL 6.2-12.0 [facility] Determination of erythrocyte mean corpuscular volume (MCV)Ordered By: Jennifer Watt on 01-06-2023 MCV (RBC) [Entitic vol] 93.7 fL 80-94 [facility] Hematocrit Auto (Bld) [Volum e fraction]Ordered By: Jennifer Watt on 01-06-2023 Hematocrit (Bld) [Volume fraction] 35.4 % 40-54 [facility] INR in Blood by Coagulation assayOrdered By: Ke Connelly on 01-06-2023 INR Coag (Bld) [Relative time] 1.0 {INR} [facility] Laboratory - Chemistry and C hemistry - challengeOrdered By: Jennifer Watt on 01-06-2023 ALP [Catalytic activity/Vol] 64 U/L 45-117 [facility] ALT [Catalytic activity/Vol] 18 U/L 16-61 [facility] CO2 [Moles/Vol] 33.0 mmol/L 21.0-32.0 [facility] Globulin (S) [Mass/Vol] 3.9 g/dL 2.2-4.2 [facility] Urea nitrogen/Creatinine [Mass ratio] 17.7 mg/mg 10-20 [facility] Laboratory - CoagulationOrde red By: Ke Connelly on 01-06-2023 aPTT Coag (Bld) [Time] 30.5 s 24.1-36.2 [facility] PT Coag (PPP) [Time] 13.6 s 11.7-14.9 [facility] Laboratory - Hematology and Cell countsOrdered By: Jennifer Wtat on 01-06-2023 Erythrocyte distribution width (RBC) [Entitic vol] 52.4 fL 35.1-43.9 [facility] Erythrocyte distribution width (RBC) [Ratio] 15.3 % 11.6-14.6 [facility] Immature granulocytes/100 WBC (Bld) 0.300 % 0.0-0.9 [facility] Comment on above: IG% - Immature Granu locytes (promyelocytes, myelocytes and metamyelocytes) > 1% indicates that a LEFT SHIFT is Present. MCH (RBC) [Entitic mass] 30.2 pg 27.0-32.0 [facility] Nucleated RBC/100 WBC (Bld) [Ratio] 0 % 0-5 [facility] MCHC Auto (RBC) [Mass/Vol]Or dered By: Jennifer Watt on 01-06-2023 MCHC (RBC) [Mass/Vol] 32.2 g/dL 32-36 [facility] No Panel InformationOrdered By: Jennifer Watt on 01-06-2023 Estimated GFR (MDRD) Amer 48 mL/min >60 [facility] Comment on above: GFR Calc Estimated GFR (MDRD) Non-Af Amer 40 mL/min >60 [facility] Comment on above: Non- GFR Calc Thyroid Stimulating Hormone (TSH) 1.49 uIU/mL 0.358-3.74 [facility] Vitamin D 25-Hydroxy 63.3 ng/mL [facility] Comment on above: Vitamin D 25(OH) Sta tus Range Deficiency <20 ng/mL (50nmol/L) Insufficiency 20 - 30 ng/mL (50 - 75 nmol/L) Sufficiency 30 - 100 ng/mL (75 - 250 nmol/L) Toxicity >100 ng/mL (>250 nmol/L) 30.2 pg 27.0-32.0 [facility] 15.3 % 11.6-14.6 [facility] 52.4 fl 35.1-43.9 [facility] 0.300 % 0.0-0.9 [facility] 0 % 0-5 [facility] 40 mL/min >60 [facility] 48 mL/min >60 [facility] 17.7 RATIO 10-20 [facility] 3.9 g/dL 2.2-4.2 [facility] 64 U/L 45-117 [facility] 18 U/L 16-61 [facility] 33.0 mmol/L 21.0-32.0 [facility] 1.49 uIU/mL 0.358-3.74 [facility] 63.3 ng/mL [facility] No Panel InformationOrdered By: Ke Connelly on 01-06-2023 13.6 SECONDS 11.7-14.9 [facility] 30.5 Seconds 24.1-36.2 [facility] Platelets bldOrdered By: Sharyn Watt on 01-06-2023 Platelets (Bld) [#/Vol] 233 10*3/uL 150-450 [facility] Serum or plasma albumin shayan urement (mass/volume)Ordered By: Jennifer Watt on 01-06-2023 Albumin [Mass/Vol] 3.4 g/dL 3.2-5.0 [facility] Serum or plasma albumin/glob ulin mass ratioOrdered By: Jennifer Watt on 01-06-2023 Albumin/Globulin [Mass ratio] 0.9 {ratio} 0.9-2.4 [facility] Serum or plasma calcium shayan urement (mass/volume)Ordered By: Jennifer Watt on 01-06-2023 Calcium [Mass/Vol] 9.0 mg/dL 8.5-10.1 [facility] Serum or plasma cholesterol in HDL measurement (mass/volume)Ordered By: Jennifer Watt on 01-06-2023 Cholesterol in HDL [Mass/Vol] 36 mg/dL >40 [facility] Comment on above: The drugs N-Acetylcy steine and Metamizole may falsely depress this assay. Reference Range HDL <40 mg/dL Low HDL Cholesterol HDL >or= 60 mg/dL High HDL Cholesterol Serum or plasma cholesterol in VLDL measurement (mass/volume)Ordered By: Jennifer Watt on 01-06-2023 Cholesterol in VLDL [Mass/Vol] 36 mg/dL 5-40 [facility] Serum or plasma creatinine m easurement (mass/volume)Ordered By: Jennifer Watt on 01-06-2023 Creatinine [Mass/Vol] 1.75 mg/dL 0.70-1.30 [facility] Comment on above: The validity of the calculated GFR & GFRAA in patients over 70 years has not been determined. Clinical correlation is essential. Serum or plasma low density lipoprotein (LDL) cholesterol measurement (mass/volume)Ordered By: Jennifer Watt on 01-06-2023 Cholesterol in LDL [Mass/Vol] 67 mg/dL 0-130 [facility] Serum or plasma urea nitroge n measurement (mass/volume)Ordered By: Jennifer Watt on 01-06-2023 Urea nitrogen [Mass/Vol] 31 mg/dL 7-18 [facility] Thin prep Papanicolaou smear with manual screeningOrdered By: Jennifer Watt on 01-06-2023 Thin prep Papanicolaou smear with manual screening 10 U/L 15-37 [facility] Thin prep Papanicolaou smear with manual screening 6 5-15 [facility] Whole blood hemoglobin A1c/t otal hemoglobin ratio (mass fraction)Ordered By: Ke Connelly on 01-06-2023 HbA1c (Bld) [Mass fraction] 6.4 % 3.8-5.6 [facility] Comment on above: Normal < 5.7 % Predi abetic 5.7 - 6.4 % Diabetic >or= 6.5 % Please note range changes. Glucose Glucometer (BldC) [M ass/Vol]Ordered By: Johnathan Huffman on 11-12-2022 Glucose [Mass/Vol] 230 mg/dL 74-106 [facility] Glucose [Mass/Vol] 157 mg/dL 74-106 [facility] Absolute lymphocyte countOrd ered By: Johnathan Huffman on 11-11-2022 Lymphocytes Auto (Unsp spec) [#/Vol] 1.61 10*3/uL 0.83-4.51 [facility] Basophil percentageOrdered B y: Johnathan Huffman on 11-11-2022 Basophil percentage 166 mg/dL 74-106 [facility] Basophil percentage 137 mmol/L 136-145 [facility] Basophil percentage 4.3 mmol/L 3.5-5.1 [facility] Basophil percentage 101 mmol/L 98-107 [facility] Basophils (Bld) [#/Vol] 9.1 10*3/uL 4.4-11.0 [facility] Basophils (Bld) [#/Vol] 5.8 10*3/uL 2.0-7.7 [facility] Basophils/100 WBC (Bld) 64.2 % 47-70 [facility] Basophils/100 WBC (Bld) 5.8 % 0-5 [facility] Basophils/100 WBC (Bld) 1.1 % 0-1 [facility] Blood erythrocytes count (nu mber/volume)Ordered By: Johnathan Huffman on 11-11-2022 RBC (Bld) [#/Vol] 3.03 10*6/uL 4.6-6.2 [facility] Blood hemoglobin measurement (mass/volume)Ordered By: Johnathan Huffman on 11-11-2022 Hemoglobin (Bld) [Mass/Vol] 9.2 g/dL 13.0-16.5 [facility] Blood lymphocytes/100 leukoc ytesOrdered By: Johnathan Huffman 11-11-2022 Lymphocytes/100 WBC (Bld) 17.7 % 19-41 [facility] Blood monocytes/100 leukocyt esOrdered By: Johnathan Huffman 11-11-2022 Monocytes/100 WBC (Bld) 10.4 % 0-10 [facility] Blood platelet mean volumeOr dered By: Johnathan Huffman on 11-11-2022 Platelet mean volume (Bld) [Entitic vol] 10.1 fL 6.2-12.0 [facility] Determination of erythrocyte mean corpuscular volume (MCV)Ordered By: Johnathan Huffman on 11-11-2022 MCV (RBC) [Entitic vol] 91.4 fL 80-94 [facility] Hematocrit Auto (Bld) [Volum e fraction]Ordered By: Johnathan Huffman 11-11-2022 Hematocrit (Bld) [Volume fraction] 27.7 % 40-54 [facility] MCHC Auto (RBC) [Mass/Vol]Or dered By: Johnathan Huffman on 11-11-2022 MCHC (RBC) [Mass/Vol] 33.2 g/dL 32-36 [facility] No Panel InformationOrdered By: Johnathan Huffman on 11-11-2022 30.4 pg 27.0-32.0 [facility] 14.5 % 11.6-14.6 [facility] 48.0 fl 35.1-43.9 [facility] 0.800 % 0.0-0.9 [facility] 0 % 0-5 [facility] 33 mL/min >60 [facility] 40 mL/min >60 [facility] 29.97 ml/min [facility] 27.8 RATIO 10-20 [facility] 30.0 mmol/L 21.0-32.0 [facility] Platelets bldOrdered By: Johnathan Huffman on 11-11-2022 Platelets (Bld) [#/Vol] 372 10*3/uL 150-450 [facility] Serum or plasma calcium shayan urement (mass/volume)Ordered By: Johnathan Huffman on 11-11-2022 Calcium [Mass/Vol] 8.6 mg/dL 8.5-10.1 [facility] Serum or plasma creatinine m easurement (mass/volume)Ordered By: Johnathan Huffman on 11-11-2022 Creatinine [Mass/Vol] 2.05 mg/dL 0.70-1.30 [facility] Serum or plasma urea nitroge n measurement (mass/volume)Ordered By: Johnathan Huffman on 11-11-2022 Urea nitrogen [Mass/Vol] 57 mg/dL 7-18 [facility] Thin prep Papanicolaou smear with manual screeningOrdered By: Johnathan Huffman on 11-11-2022 Thin prep Papanicolaou smear with manual screening 6 5-15 [facility] Absolute lymphocyte countOrd ered By: Johana Archuleta on 11-03-2022 Lymphocytes Auto (Unsp spec) [#/Vol] 1.81 10*3/uL 0.83-4.51 [facility] Basophil percentageOrdered B y: Johana Geremias on 11-03-2022 Basophil percentage 154 mg/dL 74-106 [facility] Basophil percentage 6.1 g/dL 6.4-8.2 [facility] Basophil percentage 0.20 mg/dL 0.20-1.00 [facility] Basophil percentage 140 mmol/L 136-145 [facility] Basophil percentage 4.8 mmol/L 3.5-5.1 [facility] Basophil percentage 107 mmol/L 98-107 [facility] Basophils (Bld) [#/Vol] 10.2 10*3/uL 4.4-11.0 [facility] Basophils (Bld) [#/Vol] 6.2 10*3/uL 2.0-7.7 [facility] Basophils/100 WBC (Bld) 0.8 % 0-1 [facility] Basophils/100 WBC (Bld) 60.9 % 47-70 [facility] Basophils/100 WBC (Bld) 6.4 % 0-5 [facility] Bilirubin [Mass/Vol] 0.20 mg/dL 0.20-1.00 [facility] Comment on above: For patients on eltr ombopag therapy, use of Dimension [place] TBIL is not recommended. Chloride [Moles/Vol] 107 mmol/L 98-107 [facility] Eosinophils/100 WBC (Bld) 6.4 % 0-5 [facility] Glucose [Mass/Vol] 154 mg/dL 74-106 [facility] Comment on above: Fasting Glucose resu lt greater than or equal to 126 mg/dL suggests DIABETES MELLITUS per A.D.A. criteria. Neutrophils (Bld) [#/Vol] 6.2 10*3/uL 2.0-7.7 [facility] Neutrophils/100 WBC (Bld) 60.9 % 47-70 [facility] Potassium [Moles/Vol] 4.8 mmol/L 3.5-5.1 [facility] Protein [Mass/Vol] 6.1 g/dL 6.4-8.2 [facility] Sodium [Moles/Vol] 140 mmol/L 136-145 [facility] WBC (Bld) [#/Vol] 10.2 10*3/uL 4.4-11.0 [facility] Blood erythrocytes count (nu mber/volume)Ordered By: Johana Archuleta on 08-23-2023 RBC (Bld) [#/Vol] 3.02 10*6/uL 4.6-6.2 [facility] Blood hemoglobin measurement (mass/volume)Ordered By: Johana Archuleta on 11-03-2022 Hemoglobin (Bld) [Mass/Vol] 9.1 g/dL 13.0-16.5 [facility] Blood lymphocytes/100 leukoc ytesOrdered By: Johana Archuleta on 11-03-2022 Lymphocytes/100 WBC (Bld) 17.7 % 19-41 [facility] Blood monocytes/100 leukocyt esOrdered By: Johana Archuleta on 11-03-2022 Monocytes/100 WBC (Bld) 12.7 % 0-10 [facility] Blood platelet mean volumeOr dered By: Johana Archuleta on 11-03-2022 Platelet mean volume (Bld) [Entitic vol] 10.7 fL 6.2-12.0 [facility] Determination of erythrocyte mean corpuscular volume (MCV)Ordered By: Johana Archuleta on 11-03-2022 MCV (RBC) [Entitic vol] 91.4 fL 80-94 [facility] Glucose Glucometer (BldC) [M ass/Vol]Ordered By: Johana Archuleta on 11-03-2022 Glucose [Mass/Vol] 258 mg/dL 74-106 [facility] Comment on above: MANAGEMENT OF PATIEN T CARE PER NURSING PROTOCOL Hematocrit Auto (Bld) [Volum e fraction]Ordered By: Johana Archuleta on 11-03-2022 Hematocrit (Bld) [Volume fraction] 27.6 % 40-54 [facility] Laboratory - Chemistry and C hemistry - challengeOrdered By: Johana Archuleta on 11-03-2022 ALP [Catalytic activity/Vol] 59 U/L 45-117 [facility] ALT [Catalytic activity/Vol] 25 U/L 16-61 [facility] CO2 [Moles/Vol] 30.0 mmol/L 21.0-32.0 [facility] Globulin (S) [Mass/Vol] 3.8 g/dL 2.2-4.2 [facility] Urea nitrogen/Creatinine [Mass ratio] 29.8 mg/mg 10-20 [facility] Laboratory - Hematology and Cell countsOrdered By: Johana Archuleta on 11-03-2022 Erythrocyte distribution width (RBC) [Entitic vol] 48.5 fL 35.1-43.9 [facility] Erythrocyte distribution width (RBC) [Ratio] 14.4 % 11.6-14.6 [facility] Immature granulocytes/100 WBC (Bld) 1.500 % 0.0-0.9 [facility] Comment on above: IG% - Immature Granu locytes (promyelocytes, myelocytes and metamyelocytes) > 1% indicates that a LEFT SHIFT is Present. MCH (RBC) [Entitic mass] 30.1 pg 27.0-32.0 [facility] Nucleated RBC/100 WBC (Bld) [Ratio] 0 % 0-5 [facility] MCHC Auto (RBC) [Mass/Vol]Or dered By: Johana Archuleta on 11-03-2022 MCHC (RBC) [Mass/Vol] 33.0 g/dL 32-36 [facility] No Panel InformationOrdered By: Johana Archuleta on 11-03-2022 Estimated Creatinine Clearance Calc 38.16 ml/min [facility] Estimated GFR (MDRD) Amer 53 mL/min >60 [facility] Comment on above: GFR Calc Estimated GFR (MDRD) Non-Af Amer 44 mL/min >60 [facility] Comment on above: Non- GFR Calc 30.1 pg 27.0-32.0 [facility] 14.4 % 11.6-14.6 [facility] 48.5 fl 35.1-43.9 [facility] 1.500 % 0.0-0.9 [facility] 0 % 0-5 [facility] 44 mL/min >60 [facility] 53 mL/min >60 [facility] 38.16 ml/min [facility] 29.8 RATIO 10-20 [facility] 3.8 g/dL 2.2-4.2 [facility] 59 U/L 45-117 [facility] 25 U/L 16-61 [facility] 30.0 mmol/L 21.0-32.0 [facility] Platelets bldOrdered By: Regulo Archuleta on 11-03-2022 Platelets (Bld) [#/Vol] 234 10*3/uL 150-450 [facility] Serum or plasma albumin shayan urement (mass/volume)Ordered By: Johana Archuleta on 11-03-2022 Albumin [Mass/Vol] 2.3 g/dL 3.2-5.0 [facility] Serum or plasma albumin/glob ulin mass ratioOrdered By: Johana Archuleta on 11-03-2022 Albumin/Globulin [Mass ratio] 0.6 {ratio} 0.9-2.4 [facility] Serum or plasma calcium shayan urement (mass/volume)Ordered By: Johana Archuleta on 11-03-2022 Calcium [Mass/Vol] 8.4 mg/dL 8.5-10.1 [facility] Serum or plasma creatinine m easurement (mass/volume)Ordered By: Johana Archuleta on 11-03-2022 Creatinine [Mass/Vol] 1.61 mg/dL 0.70-1.30 [facility] Comment on above: The validity of the calculated GFR & GFRAA in patients over 70 years has not been determined. Clinical correlation is essential. Serum or plasma urea nitroge n measurement (mass/volume)Ordered By: Johana Archuleta on 11-03-2022 Urea nitrogen [Mass/Vol] 48 mg/dL 7-18 [facility] Thin prep Papanicolaou smear with manual screeningOrdered By: [facility] Geremias 11-03-2022 Thin prep Papanicolaou smear with manual screening 16 U/L 15-37 [facility] Thin prep Papanicolaou smear with manual screening 3 5-15 [facility] Erythrocyte sedimentation ra teOrdered By: Johana Archuleta on 11-02-2022 ESR (Bld) [Velocity] 76 mm/h 0-20 [facility] Serum or plasma C reactive p rotein measurement (mass/volume)Ordered By: Johana Archuleta on 11-02-2022 CRP [Mass/Vol] 98.40 mg/L 0.0-3.0 [facility] Comment on above: C-Reactive Protein ( CRP) provides useful information for thediagnosis, therapy and monitoring of inflammatory processesand associated diseases. For the evaluation of Relative Riskfor Cardiovascular Disease, a High Sensitivity CRP (HSCRP)should be ordered. Stool gastrointestinal hemog lobin detection by immunologic methodOrdered By: Adiel Umanzor on 11-02-2022 Lower GI hemoglobin IA Ql (Stl) [facility] Lower GI hemoglobin IA Ql (Stl) [facility] Absolute lymphocyte countOrd ered By: Adiel Umanzor on 11-01-2022 Lymphocytes Auto (Unsp spec) [#/Vol] 1.70 10*3/uL 0.83-4.51 [facility] Basophil percentageOrdered B y: Adiel Umanzor on 11-01-2022 Basophil percentage 164 mg/dL 74-106 [facility] Basophil percentage 139 mmol/L 136-145 [facility] Basophil percentage 3.8 mmol/L 3.5-5.1 [facility] Basophil percentage 107 mmol/L 98-107 [facility] Basophils (Bld) [#/Vol] 9.7 10*3/uL 4.4-11.0 [facility] Basophils (Bld) [#/Vol] 5.7 10*3/uL 2.0-7.7 [facility] Basophils/100 WBC (Bld) 58.7 % 47-70 [facility] Basophils/100 WBC (Bld) 8.2 % 0-5 [facility] Basophils/100 WBC (Bld) 0.7 % 0-1 [facility] Blood erythrocytes count (nu mber/volume)Ordered By: Adiel Umanzor on 11-01-2022 RBC (Bld) [#/Vol] 3.03 10*6/uL 4.6-6.2 [facility] Blood hemoglobin measurement (mass/volume)Ordered By: Adiel Umanzor on 11-01-2022 Hemoglobin (Bld) [Mass/Vol] 9.3 g/dL 13.0-16.5 [facility] Blood lymphocytes/100 leukoc ytesOrdered By: Adiel Umanzor on 11-01-2022 Lymphocytes/100 WBC (Bld) 17.5 % 19-41 [facility] Blood monocytes/100 leukocyt esOrdered By: Adiel Umanzor on 11-01-2022 Monocytes/100 WBC (Bld) 14.1 % 0-10 [facility] Blood platelet mean volumeOr dered By: Adiel Umanzor on 11-01-2022 Platelet mean volume (Bld) [Entitic vol] 10.9 fL 6.2-12.0 [facility] Determination of erythrocyte mean corpuscular volume (MCV)Ordered By: Adiel Umanzor on 11-01-2022 MCV (RBC) [Entitic vol] 92.1 fL 80-94 [facility] Erythrocyte sedimentation ra teOrdered By: Johana Archuleta on 11-01-2022 ESR (Bld) [Velocity] 68 mm/h 0-20 [facility] Glucose Glucometer (BldC) [M ass/Vol]Ordered By: Johana Archuleta on 11-01-2022 Glucose [Mass/Vol] 236 mg/dL 74-106 [facility] Hematocrit Auto (Bld) [Volum e fraction]Ordered By: Adiel Umanzor on 11-01-2022 Hematocrit (Bld) [Volume fraction] 27.9 % 40-54 [facility] - Microbiology an d Antimicrobial susceptibilityOrdered By: Johana Archuleta on 11-01-2022 SARS-CoV-2 (COVID-19) RNA GONSALO+probe Ql (Unsp spec) [facility] MCHC Auto (RBC) [Mass/Vol]Or dered By: Adiel Umanzor on 11-01-2022 MCHC (RBC) [Mass/Vol] 33.3 g/dL 32-36 [facility] No Panel InformationOrdered By: Adiel Umanzor on 11-01-2022 30.7 pg 27.0-32.0 [facility] 14.7 % 11.6-14.6 [facility] 50.0 fl 35.1-43.9 [facility] 0.800 % 0.0-0.9 [facility] 0 % 0-5 [facility] 34 mL/min >60 [facility] 41 mL/min >60 [facility] 30.41 ml/min [facility] 22.8 RATIO 10-20 [facility] 27.0 mmol/L 21.0-32.0 [facility] Platelets bldOrdered By: Lazaro Umanzor on 11-01-2022 Platelets (Bld) [#/Vol] 228 10*3/uL 150-450 [facility] Serum or plasma C reactive p rotein measurement (mass/volume)Ordered By: Johana Archuleta on 11-01-2022 CRP [Mass/Vol] 97.10 mg/L 0.0-3.0 [facility] Serum or plasma calcium shayan urement (mass/volume)Ordered By: Adiel Umanzor on 11-01-2022 Calcium [Mass/Vol] 8.2 mg/dL 8.5-10.1 [facility] Serum or plasma creatinine m easurement (mass/volume)Ordered By: Adiel Umanzor on 11-01-2022 Creatinine [Mass/Vol] 2.02 mg/dL 0.70-1.30 [facility] Serum or plasma urea nitroge n measurement (mass/volume)Ordered By: Adiel Noé on 11-01-2022 Urea nitrogen [Mass/Vol] 46 mg/dL 7-18 [facility] Serum procalcitonin measurem entOrdered By: Johana Archuleta on 11-01-2022 Procalcitonin [Mass/Vol] 0.14 ng/mL 0.00-0.09 [facility] Comment on above: A procalcitonin (PCT ) level above 2.0 ng/mL on the first day of ICU admission is associated with a high risk for progression to severe sepsis and/or septic shock. A PCT level below 0.5 ng/mL on the first day of ICU admission is associated with a low risk for progression to severe and/or septic shock. Note: Concentrations <0.5 ng/mL do not exclude an infection on account of localized infections (without systemic signs) which can be associated with such low concentrations, or a systemic infection in its initial stages (<6 hours). Furthermore, increased procalcitonin can occur without infection. PCT concentrations between 0.5 and 2.0 ng/mL should be interpreted taking into account the patient's history. It is recommended to retest PCT within 6-24 hours if any concentrations <2 ng/mL are obtained. Thin prep Papanicolaou smear with manual screeningOrdered By: Adiel Umanzor on 11-01-2022 Thin prep Papanicolaou smear with manual screening 5 5-15 [facility] Basophil percentageOrdered B y: Adiel Umanzor on 10-30-2022 Basophil percentage 6.2 g/dL 6.4-8.2 [facility] Basophil percentage 0.40 mg/dL 0.20-1.00 [facility] No Panel InformationOrdered By: [facility] on 10-30-2022 3.7 g/dL 2.2-4.2 [facility] 57 U/L 45-117 [facility] 10 U/L 16-61 [facility] Serum or plasma albumin shayan urement (mass/volume)Ordered By: Adiel Umanzor on 10-30-2022 Albumin [Mass/Vol] 2.5 g/dL 3.2-5.0 [facility] Serum or plasma albumin/glob ulin mass ratioOrdered By: Adiel Umanzor on 10-30-2022 Albumin/Globulin [Mass ratio] 0.7 {ratio} 0.9-2.4 [facility] Thin prep Papanicolaou smear with manual screeningOrdered By: Adiel Umanzor on 10-30-2022 Thin prep Papanicolaou smear with manual screening 7 U/L 15-37 [facility] Blood manual differential co mment interpretation (narrative result)Ordered By: Tato Avendaño on 10-29-2022 Manual differential comment Leighton (Bld) [Interp] SCANNED [facility] Comment on above: MONOCYTOSIS PRESENT Review by pathologistOrdered By: Tato Avendaño on 10-29-2022 Pathologist review Leighton (Unsp spec) [Interp] Reviewed [facility] Comment on above: Previous reported re sult: Cielo tyler Edited by: RGOOD on 10/29/22:1237Neutrophilic leukocytosis.Normocytic anemia.Clinical correlation suggested.Rasheed Mcpherson D.O. 10/29/22 AMENDED REPORT 10/29/22 1237 PATH REV previously reported as: Cielo tyler Absolute lymphocyte countOrd ered By: Elba Ontiveros on 10-28-2022 Lymphocytes Auto (Unsp spec) [#/Vol] 1.22 10*3/uL 0.83-4.51 [facility] Basophil percentageOrdered B y: Elba Ontiveros on 10-28-2022 Basophil percentage 0 SEEN /hpf 0-5 [facility] Basophil percentage 0.9 mmol/L 0.4-2.0 [facility] Basophils/100 WBC (Bld) 0.6 % 0-1 [facility] Bilirubin [Mass/Vol] 0.40 mg/dL 0.20-1.00 [facility] Comment on above: For patients on eltr ombopag therapy, use of Dimension [place] TBIL is not recommended. Chloride [Moles/Vol] 100 mmol/L 98-107 [facility] Eosinophils/100 WBC (Bld) 1.0 % 0-5 [facility] Glucose [Mass/Vol] 140 mg/dL 74-106 [facility] Comment on above: Fasting Glucose resu lt greater than or equal to 126 mg/dL suggests DIABETES MELLITUS per A.D.A. criteria. Lactate [Moles/Vol] 0.9 mmol/L 0.4-2.0 [facility] Neutrophils (Bld) [#/Vol] 10.9 10*3/uL 2.0-7.7 [facility] Neutrophils/100 WBC (Bld) 75.9 % 47-70 [facility] Potassium [Moles/Vol] 3.6 mmol/L 3.5-5.1 [facility] Protein [Mass/Vol] 7.5 g/dL 6.4-8.2 [facility] Sodium [Moles/Vol] 137 mmol/L 136-145 [facility] WBC (Bld) [#/Vol] 14.4 10*3/uL 4.4-11.0 [facility] Bilirubin Test strip Ql (U)O rdered By: Elba Ontiveros on 10-28-2022 Bilirubin Ql (U) Negative Negative [facility] Blood erythrocytes count (nu mber/volume)Ordered By: Elba Ontiveros on 10-28-2022 RBC (Bld) [#/Vol] 3.63 10*6/uL 4.6-6.2 [facility] Blood hemoglobin measurement (mass/volume)Ordered By: Elba Ontiveros on 10-28-2022 Hemoglobin (Bld) [Mass/Vol] 10.9 g/dL 13.0-16.5 [facility] Blood lymphocytes/100 leukoc ytesOrdered By: Elba Ontiveros on 10-28-2022 Lymphocytes/100 WBC (Bld) 8.5 % 19-41 [facility] Blood manual differential co mment interpretation (narrative result)Ordered By: Elba Ontiveros on 10-28-2022 Manual differential comment Leighton (Bld) [Interp] SEE COMMENT [facility] Comment on above: MONOCYTOSIS NOTED Blood monocytes/100 leukocyt esOrdered By: Elba Ontiveros on 10-28-2022 Monocytes/100 WBC (Bld) 13.4 % 0-10 [facility] Blood platelet adequacy dete ction by light microscopyOrdered By: Elba Ontiveros on 10-28-2022 Platelets LM Ql (Bld) ADEQUATE ADEQ [facility] Blood platelet mean volumeOr dered By: Elba Ontiveros on 10-28-2022 Platelet mean volume (Bld) [Entitic vol] 10.4 fL 6.2-12.0 [facility] Culture, urineOrdered By: Georges Ontiveros on 10-28-2022 Bacteria identified Cx Nom (U) Culture exhibits no growth. [facility] Bacteria identified Cx Nom (U) Culture exhibits no growth. [facility] Determination of erythrocyte mean corpuscular volume (MCV)Ordered By: Elba Ontiveros on 10-28-2022 MCV (RBC) [Entitic vol] 92.6 fL 80-94 [facility] Hematocrit Auto (Bld) [Volum e fraction]Ordered By: Elba Ontiveros on 10-28-2022 Hematocrit (Bld) [Volume fraction] 33.6 % 40-54 [facility] INR in Blood by Coagulation assayOrdered By: Elba Ontiveros on 10-28-2022 INR Coag (Bld) [Relative time] 1.0 {INR} [facility] Influenza virus A and B and SARS-CoV-2 (COVID-19) Ag panel - Upper respiratory specimOrdered By: Elba Ontiveros on 10-28-2022 SARS-CoV-2 (COVID-19) RNA GONSALO+probe Ql (Resp) [facility] Ketones Test strip Ql (U)Ord ered By: Elba Ontiveros on 10-28-2022 Ketones Ql (U) Negative Negative [facility] Laboratory - Chemistry and C hemistry - challengeOrdered By: Elba Ontiveros on 10-28-2022 ALP [Catalytic activity/Vol] 63 U/L 45-117 [facility] ALT [Catalytic activity/Vol] 14 U/L 16-61 [facility] CO2 [Moles/Vol] 30.0 mmol/L 21.0-32.0 [facility] Globulin (S) [Mass/Vol] 4.1 g/dL 2.2-4.2 [facility] Urea nitrogen/Creatinine [Mass ratio] 19.4 mg/mg 10-20 [facility] Laboratory - CoagulationOrde red By: Elba Ontiveros on 10-28-2022 aPTT Coag (Bld) [Time] 22.8 s 24.1-36.2 [facility] PT Coag (PPP) [Time] 13.6 s 11.7-14.9 [facility] Laboratory - Hematology and Cell countsOrdered By: Elba Ontiveros on 10-28-2022 Anisocytosis Ql (Bld) RARE [facility] Erythrocyte distribution width (RBC) [Entitic vol] 50.1 fL 35.1-43.9 [facility] Erythrocyte distribution width (RBC) [Ratio] 14.6 % 11.6-14.6 [facility] Immature granulocytes/100 WBC (Bld) 0.600 % 0.0-0.9 [facility] Comment on above: IG% - Immature Granu locytes (promyelocytes, myelocytes and metamyelocytes) > 1% indicates that a LEFT SHIFT is Present. MCH (RBC) [Entitic mass] 30.0 pg 27.0-32.0 [facility] Nucleated RBC/100 WBC (Bld) [Ratio] 0 % 0-5 [facility] Laboratory - Microbiology an d Antimicrobial susceptibilityOrdered By: Elba Ontiveros on 10-28-2022 Bacteria identified Cx Nom (Bld) No growth in 5 days. [facility] MCHC Auto (RBC) [Mass/Vol]Or dered By: Elba Ontiveros on 10-28-2022 MCHC (RBC) [Mass/Vol] 32.4 g/dL 32-36 [facility] Macrocytes detectionOrdered By: Elba Ontiveros on 10-28-2022 Macrocytes Ql (Bld) RARE [facility] Mucus LM Ql (Urine sed)Order ed By: Elba Ontiveros on 10-28-2022 Mucus Ql (Urine sed) 0 SEEN /hpf [facility] Nitrite Test strip Ql (U)Ord ered By: Elba Ontiveros on 08-17-2023 Nitrite Ql (U) Negative Negative [facility] No Panel InformationOrdered By: Elba Ontiveros on 10-28-2022 No growth in 5 days. [facility] No growth in 5 days. [facility] Estimated Creatinine Clearance Calc 36.14 ml/min [facility] Estimated GFR (MDRD) Amer 50 mL/min >60 [facility] Comment on above: GFR Calc Estimated GFR (MDRD) Non-Af Amer 41 mL/min >60 [facility] Comment on above: Non- GFR Calc RARE [facility] 13.6 SECONDS 11.7-14.9 [facility] 22.8 Seconds 24.1-36.2 [facility] Platelets bldOrdered By: Ondina Ontiveros on 10-28-2022 Platelets (Bld) [#/Vol] 229 10*3/uL 150-450 [facility] Protein Test strip Ql (U)Ord ered By: Elba Ontiveros on 10-28-2022 Protein Ql (U) 100 mg/dl Negative [facility] RBC morphologyOrdered By: Georges Ontiveros on 10-28-2022 RBC morphology finding Nom (Bld) N CHROM NORMAL NORM C&C [facility] Review by pathologistOrdered By: Elba Ontiveros on 10-28-2022 Pathologist review Leighton (Unsp spec) [Interp] May foll [facility] Serum or plasma albumin shayan urement (mass/volume)Ordered By: Elba Ontiveros on 10-28-2022 Albumin [Mass/Vol] 3.4 g/dL 3.2-5.0 [facility] Serum or plasma albumin/glob ulin mass ratioOrdered By: Elba Ontiveros on 10-28-2022 Albumin/Globulin [Mass ratio] 0.8 {ratio} 0.9-2.4 [facility] Serum or plasma calcium shayan urement (mass/volume)Ordered By: Elba Ontiveros on 10-28-2022 Calcium [Mass/Vol] 9.1 mg/dL 8.5-10.1 [facility] Serum or plasma creatinine m easurement (mass/volume)Ordered By: Elba Ontiveros on 10-28-2022 Creatinine [Mass/Vol] 1.70 mg/dL 0.70-1.30 [facility] Comment on above: The validity of the calculated GFR & GFRAA in patients over 70 years has not been determined. Clinical correlation is essential. Serum or plasma urea nitroge n measurement (mass/volume)Ordered By: Elba Ontiveros on 10-28-2022 Urea nitrogen [Mass/Vol] 33 mg/dL 7-18 [facility] Squamous epithelial cells de tection in urine sediment by light microscopyOrdered By: Elba Ontiveros on 10-28-2022 Epithelial cells.squamous LM Ql (Urine sed) 0 SEEN /hpf 0-5 [facility] Thin prep Papanicolaou smear with manual screeningOrdered By: Elba Ontiveros on 10-28-2022 Thin prep Papanicolaou smear with manual screening 13 U/L 15-37 [facility] Thin prep Papanicolaou smear with manual screening 7 5-15 [facility] Urine blood detectionOrdered By: Elba Ontiveros on 10-28-2022 RBC Ql (U) 25 /ul Negative [facility] RBC Ql (U) 0 SEEN /hpf 0-5 [facility] Urine clarityOrdered By: Ondina Ontiveros on 10-28-2022 Clarity (U) Clear Clear [facility] Urine color determinationOrd ered By: Elba Ontiveros on 10-28-2022 Color (U) Yellow Yellow [facility] Urine glucose detectionOrder ed By: Elba Ontiveros on 10-28-2022 Glucose Ql (U) Normal mg/dl Normal [facility] Urine leukocyte esterase det ection by dipstickOrdered By: Elba Ontiveros on 10-28-2022 Leukocyte esterase Test strip Ql (U) Negative Negative [facility] Urine pHOrdered By: Elba Ontiveros on 10-28-2022 pH (U) 7.0 [pH] 5.0 - 8.0 [facility] Urine sediment bacteria coun t by microscopy (number/high power field)Ordered By: Elba Ontiveros on 10-28-2022 Bacteria LM.HPF (Urine sed) [#/Area] 0 /[HPF] None Seen [facility] Urine specific gravity measu rementOrdered By: Elba Ontiveros on 10-28-2022 Specific gravity (U) [Rel density] 1.010 1.002-1.030 [facility] Urobilinogen Auto test strip Ql (U)Ordered By: Elba Ontiveros on 10-28-2022 Urobilinogen Ql (U) Normal mg/dl Normal [facility] Basophil percentageOrdered B y: Dr. Watt on 06-10-2022 Basophil percentage 85 mg/dL 74-106 [facility] Basophil percentage 137 mmol/L 136-145 [facility] Basophil percentage 3.9 mmol/L 3.5-5.1 [facility] Basophil percentage 102 mmol/L 98-107 [facility] Basophil percentageOrdered B y: Jennifer Watt on 06-10-2022 Chloride [Moles/Vol] 102 mmol/L 98-107 [facility] Glucose [Mass/Vol] 85 mg/dL 74-106 [facility] Potassium [Moles/Vol] 3.9 mmol/L 3.5-5.1 [facility] Sodium [Moles/Vol] 137 mmol/L 136-145 [facility] Laboratory - Chemistry and C hemistry - challengeOrdered By: Jennifer Watt on 06-10-2022 CO2 [Moles/Vol] 30.0 mmol/L 21.0-32.0 [facility] Urea nitrogen/Creatinine [Mass ratio] 18.7 mg/mg 10-20 [facility] No Panel InformationOrdered By: Jennifer Watt on 06-10-2022 Estimated GFR (MDRD) Amer 41 mL/min >60 [facility] Comment on above: GFR Calc Estimated GFR (MDRD) Non-Af Amer 34 mL/min >60 [facility] Comment on above: Non- GFR Calc No Panel InformationOrdered By: Dr. Watt on 06-10-2022 34 mL/min >60 [facility] 41 mL/min >60 [facility] 18.7 RATIO 10-20 [facility] 30.0 mmol/L 21.0-32.0 [facility] Serum or plasma calcium shayan urement (mass/volume)Ordered By: Dr. Watt on 06-10-2022 Calcium [Mass/Vol] 9.2 mg/dL 8.5-10.1 [facility] Serum or plasma creatinine m easurement (mass/volume)Ordered By: Dr. Watt on 06-10-2022 Creatinine [Mass/Vol] 2.03 mg/dL 0.70-1.30 [facility] Comment on above: The validity of the calculated GFR & GFRAA in patients over 70 years has not been determined. Clinical correlation is essential. Serum or plasma urea nitroge n measurement (mass/volume)Ordered By: Dr. Watt on 06-10-2022 Urea nitrogen [Mass/Vol] 38 mg/dL 7-18 [facility] Thin prep Papanicolaou smear with manual screeningOrdered By: Dr. Watt on 06-10-2022 Thin prep Papanicolaou smear with manual screening 5 5-15 [facility] Basophil percentageOrdered B y: Costa Figueroa on 05-19-2022 Basophil percentage Comment . [facility] Comment on above: No monoclonality det ected.Performed at: [place] [id number] Director: Basil Fernandez PhD, Phone: [phone] Absolute lymphocyte countOrd ered By: Dr. Watt on 05-17-2022 Lymphocytes Auto (Unsp spec) [#/Vol] 1.21 10*3/uL 0.83-4.51 [facility] Albumin Elph [Mass/Vol]Order ed By: Dr. Figueroa on 05-17-2022 Albumin [Mass/Vol] 3.6 g/dL 2.9-4.4 [facility] Basophil percentageOrdered B y: Dr. Watt on 05-17-2022 Basophil percentage 102 mg/dL 74-106 [facility] Basophil percentage 7.2 g/dL 6.4-8.2 [facility] Basophil percentage 0.30 mg/dL 0.20-1.00 [facility] Basophil percentage 135 mmol/L 136-145 [facility] Basophil percentage 4.1 mmol/L 3.5-5.1 [facility] Basophil percentage 99 mmol/L 98-107 [facility] Basophils (Bld) [#/Vol] 6.1 10*3/uL 4.4-11.0 [facility] Basophils (Bld) [#/Vol] 3.8 10*3/uL 2.0-7.7 [facility] Basophils/100 WBC (Bld) 61.2 % 47-70 [facility] Basophils/100 WBC (Bld) 5.4 % 0-5 [facility] Basophils/100 WBC (Bld) 1.1 % 0-1 [facility] Basophil percentageOrdered B y: Jennifer Watt on 05-17-2022 Bilirubin [Mass/Vol] 0.30 mg/dL 0.20-1.00 [facility] Comment on above: For patients on eltr ombopag therapy, use of Dimension [place] TBIL is not recommended. Chloride [Moles/Vol] 99 mmol/L 98-107 [facility] Eosinophils/100 WBC (Bld) 5.4 % 0-5 [facility] Glucose [Mass/Vol] 102 mg/dL 74-106 [facility] Comment on above: Fasting Glucose resu lt from 100 to 125 mg/dL suggests IMPAIRED HOMEOSTASIS per A.D.A. criteria. Neutrophils (Bld) [#/Vol] 3.8 10*3/uL 2.0-7.7 [facility] Neutrophils/100 WBC (Bld) 61.2 % 47-70 [facility] Potassium [Moles/Vol] 4.1 mmol/L 3.5-5.1 [facility] Protein [Mass/Vol] 7.2 g/dL 6.4-8.2 [facility] Sodium [Moles/Vol] 135 mmol/L 136-145 [facility] WBC (Bld) [#/Vol] 6.1 10*3/uL 4.4-11.0 [facility] Blood erythrocytes count (nu mber/volume)Ordered By: Dr. Watt on 05-17-2022 RBC (Bld) [#/Vol] 3.74 10*6/uL 4.6-6.2 [facility] Blood hemoglobin measurement (mass/volume)Ordered By: Dr. Watt on 05-17-2022 Hemoglobin (Bld) [Mass/Vol] 10.6 g/dL 13.0-16.5 [facility] Blood lymphocytes/100 leukoc ytesOrdered By: Dr. Watt on 05-17-2022 Lymphocytes/100 WBC (Bld) 19.7 % 19-41 [facility] Blood monocytes/100 leukocyt esOrdered By: Dr. Watt on 05-17-2022 Monocytes/100 WBC (Bld) 12.4 % 0-10 [facility] Blood platelet mean volumeOr dered By: Dr. Watt on 05-17-2022 Platelet mean volume (Bld) [Entitic vol] 10.7 fL 6.2-12.0 [facility] Determination of erythrocyte mean corpuscular volume (MCV)Ordered By: Dr. Watt on 05-17-2022 MCV (RBC) [Entitic vol] 89.0 fL 80-94 [facility] Hematocrit Auto (Bld) [Volum e fraction]Ordered By: Dr. Watt on 05-17-2022 Hematocrit (Bld) [Volume fraction] 33.3 % 40-54 [facility] Interpretation of serum or p lasma protein pattern by immunofixation (narrative resultOrdered By: Dr. Figueroa on 05-17-2022 Protein Fractions Immunofixation [place] [Interp] See comment [facility] Comment on above: NOT OBSERVED Iron measurement (mass/mass) Ordered By: Dr. Watt on 05-17-2022 Iron (Unsp spec) [Mass/Mass] 47 ug/dL 65-175 [facility] Laboratory - Chemistry and C hemistry - challengeOrdered By: Jennifer Watt on 05-17-2022 ALP [Catalytic activity/Vol] 56 U/L 45-117 [facility] ALT [Catalytic activity/Vol] 20 U/L 16-61 [facility] CO2 [Moles/Vol] 29.0 mmol/L 21.0-32.0 [facility] Magnesium [Mass/Vol] 2.6 mg/dL 1.6-2.6 [facility] Urea nitrogen/Creatinine [Mass ratio] 20.1 mg/mg 10-20 [facility] Laboratory - Hematology and Cell countsOrdered By: Jennifer Watt on 05-17-2022 Erythrocyte distribution width (RBC) [Entitic vol] 53.9 fL 35.1-43.9 [facility] Erythrocyte distribution width (RBC) [Ratio] 16.4 % 11.6-14.6 [facility] Immature granulocytes/100 WBC (Bld) 0.200 % 0.0-0.9 [facility] Comment on above: IG% - Immature Granu locytes (promyelocytes, myelocytes and metamyelocytes) > 1% indicates that a LEFT SHIFT is Present. MCH (RBC) [Entitic mass] 28.3 pg 27.0-32.0 [facility] Nucleated RBC/100 WBC (Bld) [Ratio] 0.3 % 0-5 [facility] MCHC Auto (RBC) [Mass/Vol]Or dered By: Dr. Watt on 05-17-2022 MCHC (RBC) [Mass/Vol] 31.8 g/dL 32-36 [facility] No Panel InformationOrdered By: Dr. Figueroa on 05-17-2022 Addendum Document Comment . [facility] Comment on above: Protein electrophore sis scan will follow via computer,mail, or environmental management specialist delivery. 32.3 mg/L 5.7-26.3 [facility] No Panel InformationOrdered By: Costa Figueroa on 05-17-2022 Free Lambda Light Chains, Quant 32.3 mg/L 5.7-26.3 [facility] No Panel InformationOrdered By: Jennifer Watt on 05-17-2022 Estimated GFR (MDRD) Amer 39 mL/min >60 [facility] Comment on above: GFR Calc Estimated GFR (MDRD) Non-Af Amer 32 mL/min >60 [facility] Comment on above: Non- GFR Calc Total Iron Binding Capacity 281 ug/dL 250-450 [facility] No Panel InformationOrdered By: Dr. Watt on 05-17-2022 28.3 pg 27.0-32.0 [facility] 16.4 % 11.6-14.6 [facility] 53.9 fl 35.1-43.9 [facility] 0.200 % 0.0-0.9 [facility] 0.3 % 0-5 [facility] 32 mL/min >60 [facility] 39 mL/min >60 [facility] 20.1 RATIO 10-20 [facility] 56 U/L 45-117 [facility] 20 U/L 16-61 [facility] 2.6 mg/dL 1.6-2.6 [facility] 29.0 mmol/L 21.0-32.0 [facility] 281 ug/dL 250-450 [facility] Platelets bldOrdered By: Dr. Watt on 05-17-2022 Platelets (Bld) [#/Vol] 250 10*3/uL 150-450 [facility] Serum [id number] measu rement by electrophoresisOrdered By: Dr. Figueroa on 05-17-2022 Alpha 1 globulin Elph [Mass/Vol] 0.3 g/dL 0.0-0.4 [facility] Alpha 1 globulin Elph [Mass/Vol] 0.9 g/dL 0.4-1.0 [facility] Serum globulin measurement ( mass/volume)Ordered By: Dr. Figueroa on 05-17-2022 Globulin (S) [Mass/Vol] 3.1 g/dL 2.2-3.9 [facility] Serum immunoglobulin kappa l ight chains/immunoglobulin lambda light chains mass ratioOrdered By: Dr. Figueroa on 05-17-2022 Immunoglobulin light chains.kappa/Immunoglobul in light chains.lambda (S) [Mass ratio] 2.59 0.26-1.65 [facility] Comment on above: Performed at: [address] Director: Basil Fernandez PhD, Phone: [phone] Serum or plasma IgA measurem ent (mass/volume)Ordered By: Dr. Figueroa on 05-17-2022 IgA [Mass/Vol] 226 mg/dL 61-437 [facility] Serum or plasma IgG measurem ent (mass/volume)Ordered By: Dr. Figueroa on 05-17-2022 IgG [Mass/Vol] 1046 mg/dL 603-8023 [facility] Serum or plasma IgM measurem ent (mass/volume)Ordered By: Dr. Figueroa on 05-17-2022 IgM [Mass/Vol] 55 mg/dL 15-143 [facility] Serum or plasma albumin shayan urement (mass/volume)Ordered By: Dr. Watt on 05-17-2022 Albumin [Mass/Vol] 3.5 g/dL 3.2-5.0 [facility] Serum or plasma albumin/glob ulin mass ratioOrdered By: Dr. Watt on 05-17-2022 Albumin/Globulin [Mass ratio] 0.9 {ratio} 0.9-2.4 [facility] Serum or plasma beta globuli n measurement by electrophoresis (mass/volume)Ordered By: Dr. Figueroa on 05-17-2022 Beta globulin Elph [Mass/Vol] 1.0 g/dL 0.7-1.3 [facility] Serum or plasma calcium shayan urement (mass/volume)Ordered By: Dr. Watt on 05-17-2022 Calcium [Mass/Vol] 9.5 mg/dL 8.5-10.1 [facility] Serum or plasma creatinine m easurement (mass/volume)Ordered By: Dr. Watt on 05-17-2022 Creatinine [Mass/Vol] 2.09 mg/dL 0.70-1.30 [facility] Comment on above: The validity of the calculated GFR & GFRAA in patients over 70 years has not been determined. Clinical correlation is essential. Serum or plasma gamma globul in measurement by electrophoresis (mass/volume)Ordered By: Dr. Figueroa on 05-17-2022 Gamma globulin Elph [Mass/Vol] 0.9 g/dL 0.4-1.8 [facility] Serum or plasma immunoelectr ophoresis interpretation (nominal result)Ordered By: Dr. Figueroa on 05-17-2022 Interpretation IEP [Interp] Comment . [facility] Comment on above: No monoclonality det ected. Serum or plasma immunoglobul in kappa light chains measurement (mass/volume)Ordered By: Dr. Figueroa on 05-17-2022 Immunoglobulin light chains.kappa [Mass/Vol] 83.5 mg/L 3.3-19.4 [facility] Serum or plasma iron saturat ion measurement (mass fraction)Ordered By: Dr. Watt on 05-17-2022 Iron saturation [Mass fraction] 16.7 % 15.0-55.0 [facility] Serum or plasma urea nitroge n measurement (mass/volume)Ordered By: Dr. Watt on 05-17-2022 Urea nitrogen [Mass/Vol] 42 mg/dL 7-18 [facility] Thin prep Papanicolaou smear with manual screeningOrdered By: Dr. Figueroa on 05-17-2022 Thin prep Papanicolaou smear with manual screening 1.2 0.7-1.7 [facility] Thin prep Papanicolaou smear with manual screeningOrdered By: Dr. Watt on 05-17-2022 Thin prep Papanicolaou smear with manual screening 13 U/L 15-37 [facility] Thin prep Papanicolaou smear with manual screening 7 5-15 [facility] Total protein bloodOrdered B y: Dr. Figueroa on 05-17-2022 Protein [Mass/Vol] 6.7 g/dL 6.0-8.5 [facility] Basophil percentageOrdered B y: Dr. Huffman on 04-24-2022 Basophil percentage 140 mg/dL 74-106 [facility] Basophil percentage 137 mmol/L 136-145 [facility] Basophil percentage 4.9 mmol/L 3.5-5.1 [facility] Basophil percentage 105 mmol/L 98-107 [facility] Glucose Glucometer (BldC) [M ass/Vol]Ordered By: Dr. Huffman on 04-24-2022 Glucose [Mass/Vol] 145 mg/dL 74-106 [facility] No Panel InformationOrdered By: Dr. Huffman on 04-24-2022 29 mL/min >60 [facility] 35 mL/min >60 [facility] 27.18 ml/min [facility] 25.7 RATIO 10-20 [facility] 26.0 mmol/L 21.0-32.0 [facility] Serum or plasma calcium shayan urement (mass/volume)Ordered By: Dr. Huffman on 04-24-2022 Calcium [Mass/Vol] 9.2 mg/dL 8.5-10.1 [facility] Serum or plasma creatinine m easurement (mass/volume)Ordered By: Dr. Huffman on 04-24-2022 Creatinine [Mass/Vol] 2.30 mg/dL 0.70-1.30 [facility] Serum or plasma urea nitroge n measurement (mass/volume)Ordered By: Dr. Huffman on 04-24-2022 Urea nitrogen [Mass/Vol] 59 mg/dL 7-18 [facility] Thin prep Papanicolaou smear with manual screeningOrdered By: Dr. Huffman on 04-24-2022 Thin prep Papanicolaou smear with manual screening 6 5-15 [facility] Absolute lymphocyte countOrd ered By: Dr. Huffman on 04-20-2022 Lymphocytes Auto (Unsp spec) [#/Vol] 1.76 10*3/uL 0.83-4.51 [facility] Basophil percentageOrdered B y: Dr. Huffman on 04-20-2022 Basophils (Bld) [#/Vol] 9.2 10*3/uL 4.4-11.0 [facility] Basophils (Bld) [#/Vol] 5.4 10*3/uL 2.0-7.7 [facility] Basophils/100 WBC (Bld) 59.4 % 47-70 [facility] Basophils/100 WBC (Bld) 8.8 % 0-5 [facility] Basophils/100 WBC (Bld) 1.1 % 0-1 [facility] Blood erythrocytes count (nu mber/volume)Ordered By: Dr. Huffman on 04-20-2022 RBC (Bld) [#/Vol] 3.20 10*6/uL 4.6-6.2 [facility] Blood hemoglobin measurement (mass/volume)Ordered By: Dr. Huffman on 04-20-2022 Hemoglobin (Bld) [Mass/Vol] 8.9 g/dL 13.0-16.5 [facility] Blood lymphocytes/100 leukoc ytesOrdered By: Dr. Huffman on 04-20-2022 Lymphocytes/100 WBC (Bld) 19.2 % 19-41 [facility] Blood monocytes/100 leukocyt esOrdered By: Dr. Huffman on 04-20-2022 Monocytes/100 WBC (Bld) 11.1 % 0-10 [facility] Blood platelet mean volumeOr dered By: Dr. Huffman on 04-20-2022 Platelet mean volume (Bld) [Entitic vol] 10.8 fL 6.2-12.0 [facility] Determination of erythrocyte mean corpuscular volume (MCV)Ordered By: Dr. Huffman on 04-20-2022 MCV (RBC) [Entitic vol] 89.4 fL 80-94 [facility] Hematocrit Auto (Bld) [Volum e fraction]Ordered By: Dr. Huffman on 04-20-2022 Hematocrit (Bld) [Volume fraction] 28.6 % 40-54 [facility] MCHC Auto (RBC) [Mass/Vol]Or dered By: Dr. Huffman on 04-20-2022 MCHC (RBC) [Mass/Vol] 31.1 g/dL 32-36 [facility] No Panel InformationOrdered By: Dr. Huffman on 04-20-2022 27.8 pg 27.0-32.0 [facility] 14.7 % 11.6-14.6 [facility] 47.9 fl 35.1-43.9 [facility] 0.400 % 0.0-0.9 [facility] 0 % 0-5 [facility] Platelets bldOrdered By: Dr. Huffman on 04-20-2022 Platelets (Bld) [#/Vol] 368 10*3/uL 150-450 [facility] No Panel InformationOrdered By: Dr. Huffman on 04-19-2022 96.9 pg/mL 0-100 [facility] Anaerobic cultureOrdered By: Dr. Umanzor on 04-17-2022 Bacteria identified Anaer cx Nom (Unsp spec) No growth in 5 days. [facility] COVID-19 virus antigen assay Ordered By: Dr. Huffman on 04-16-2022 SARS-CoV-2 (COVID-19) Ag IA.rapid Ql (Resp) [facility] Bacterial body fluid culture Ordered By: Dr. Umanzor on 04-15-2022 Bacteria identified Cx Nom (Body fld) No growth aerobically. [facility] Absolute lymphocyte countOrd ered By: Dr. Umanzor on 04-12-2022 Lymphocytes Auto (Unsp spec) [#/Vol] 1.20 10*3/uL 0.83-4.51 [facility] Basophil percentageOrdered B y: Dr. Umanzor on 04-12-2022 Basophil percentage 134 mg/dL 74-106 [facility] Basophil percentage 6.2 g/dL 6.4-8.2 [facility] Basophil percentage 0.30 mg/dL 0.20-1.00 [facility] Basophil percentage 138 mmol/L 136-145 [facility] Basophil percentage 3.8 mmol/L 3.5-5.1 [facility] Basophil percentage 102 mmol/L 98-107 [facility] Basophil percentage 113 U/L 87-241 [facility] Basophils (Bld) [#/Vol] 9.0 10*3/uL 4.4-11.0 [facility] Basophils (Bld) [#/Vol] 5.7 10*3/uL 2.0-7.7 [facility] Basophils/100 WBC (Bld) 64.0 % 47-70 [facility] Basophils/100 WBC (Bld) 7.3 % 0-5 [facility] Basophils/100 WBC (Bld) 0.8 % 0-1 [facility] Blood erythrocytes count (nu mber/volume)Ordered By: Dr. Umanzor on 04-12-2022 RBC (Bld) [#/Vol] 2.97 10*6/uL 4.6-6.2 [facility] Blood hemoglobin measurement (mass/volume)Ordered By: Dr. Umanzor on 04-12-2022 Hemoglobin (Bld) [Mass/Vol] 8.3 g/dL 13.0-16.5 [facility] Blood lymphocytes/100 leukoc ytesOrdered By: Dr. Umanzor on 04-12-2022 Lymphocytes/100 WBC (Bld) 13.4 % 19-41 [facility] Blood monocytes/100 leukocyt esOrdered By: Dr. Umanzor on 04-12-2022 Monocytes/100 WBC (Bld) 13.8 % 0-10 [facility] Blood platelet mean volumeOr dered By: Dr. Umanzor on 04-12-2022 Platelet mean volume (Bld) [Entitic vol] 10.8 fL 6.2-12.0 [facility] Body fluid appearanceOrdered By: Dr. Umanzor on 04-12-2022 Appearance (Body fld) SL CLDY [facility] Body fluid color determinati onOrdered By: Dr. Umanzor on 04-12-2022 Color (Body fld) YELLOW [facility] Body fluid erythrocytes coun t (number/volume)Ordered By: Dr. Umanzor on 04-12-2022 RBC (Body fld) [#/Vol] 5 10*3/uL [facility] Body fluid leukocytes count (number/volume)Ordered By: Dr. Umanzor on 04-12-2022 WBC (Body fld) [#/Vol] 0.777 10*3/uL [facility] Body fluid lymphocytes/100 l eukocytesOrdered By: Dr. Umanzor on 04-12-2022 Lymphocytes/100 WBC (Body fld) 37 % [facility] Body fluid mesothelial cell percentageOrdered By: Dr. Umanzor on 04-12-2022 Mesothelial cells/100 WBC (Body fld) 3 % [facility] Body fluid segmented neutrop hils count (number/volume)Ordered By: Dr. Umanzor on 04-12-2022 Segmented neutrophils (Body fld) [#/Vol] 18 % [facility] COVID-19 virus antigen assay Ordered By: Dr. Umanzor on 04-12-2022 SARS-CoV-2 (COVID-19) Ag IA.rapid Ql (Resp) [facility] Cytology report of Body flui d Cyto stainOrdered By: Dr. Umanzor on 04-12-2022 Cytology report Cyto stain Doc (Body fld) SEE PATHOLOGY REPORT [facility] Determination of erythrocyte mean corpuscular volume (MCV)Ordered By: Dr. Umanzor on 04-12-2022 MCV (RBC) [Entitic vol] 90.9 fL 80-94 [facility] Direct bilirubinOrdered By: Dr. Umanzor on 04-12-2022 Bilirubin.direct [Mass/Vol] 0.10 mg/dL 0.00-0.30 [facility] Glucose Glucometer (BldC) [M ass/Vol]Ordered By: Dr. Umanzor on 04-12-2022 Glucose [Mass/Vol] 261 mg/dL 74-106 [facility] Gram stain for investigation of transfusion reactionOrdered By: Dr. Umanzor on 04-12-2022 Microscopic observation Gram stain Nom (Unsp spec) [facility] Hematocrit Auto (Bld) [Volum e fraction]Ordered By: Dr. Umanzor on 04-12-2022 Hematocrit (Bld) [Volume fraction] 27.0 % 40-54 [facility] MCHC Auto (RBC) [Mass/Vol]Or dered By: Dr. Umanzor on 04-12-2022 MCHC (RBC) [Mass/Vol] 30.7 g/dL 32-36 [facility] Mononuclear cells Auto (Body fld) [#/Vol]Ordered By: Dr. Umanzor on 04-12-2022 Mononuclear cells (Body fld) [#/Vol] 0.608 10*3/uL [facility] No Panel InformationOrdered By: Dr. Umanzor on 04-12-2022 21.7 % [facility] 78.3 % [facility] 0.169 10^3/uL [facility] May follow [facility] SEE COMMENT [facility] Reviewed [facility] 27.9 pg 27.0-32.0 [facility] 14.4 % 11.6-14.6 [facility] 47.3 fl 35.1-43.9 [facility] 0.700 % 0.0-0.9 [facility] 0 % 0-5 [facility] 36 mL/min >60 [facility] 43 mL/min >60 [facility] 32.56 ml/min [facility] 30.2 RATIO 10-20 [facility] 3.7 g/dL 2.2-4.2 [facility] 51 U/L 45-117 [facility] 14 U/L 16-61 [facility] 29.0 mmol/L 21.0-32.0 [facility] Platelets bldOrdered By: Dr. Umanzor on 04-12-2022 Platelets (Bld) [#/Vol] 369 10*3/uL 150-450 [facility] Serum or plasma albumin shayan urement (mass/volume)Ordered By: Dr. Umanzor on 04-12-2022 Albumin [Mass/Vol] 2.5 g/dL 3.2-5.0 [facility] Serum or plasma calcium shayan urement (mass/volume)Ordered By: Dr. Umanzor on 04-12-2022 Calcium [Mass/Vol] 8.8 mg/dL 8.5-10.1 [facility] Serum or plasma creatinine m easurement (mass/volume)Ordered By: Dr. Umanzor on 04-12-2022 Creatinine [Mass/Vol] 1.92 mg/dL 0.70-1.30 [facility] Serum or plasma urea nitroge n measurement (mass/volume)Ordered By: Dr. Umanzor on 04-12-2022 Urea nitrogen [Mass/Vol] 58 mg/dL 7-18 [facility] Specimen source identificati on of body fluidOrdered By: Dr. Umanzor on 04-12-2022 Specimen source Nom (Body fld) THORACENTESIS [facility] Thin prep Papanicolaou smear with manual screeningOrdered By: Dr. Umanzor on 04-12-2022 Thin prep Papanicolaou smear with manual screening 9 % [facility] Thin prep Papanicolaou smear with manual screening 33 % [facility] Thin prep Papanicolaou smear with manual screening 11 U/L 15-37 [facility] Thin prep Papanicolaou smear with manual screening 7 5-15 [facility] Total cell countOrdered By: Dr. Umanzor on 04-12-2022 Cells counted Molgen (Bld/Tiss) [#] 0.847 10^3/ul [facility] Body fluid lactate dehydroge nase measurement (enzymatic activity/volume) by pyruvateOrdered By: Dr. Umanzor on 04-10-2022 LDH Pyruvate to lactate reaction (Body fld) [Catalytic activity/Vol] 128 Units/l Not Establ. [facility] Body fluid protein measureme nt (mass/volume)Ordered By: Dr. Umanzor on 04-10-2022 Protein (Body fld) [Mass/Vol] 3.9 g/dL Not Establ. [facility] No Panel InformationOrdered By: Dr. Umanzor on 04-10-2022 150 mg/dL 40-70 [facility] Stool gastrointestinal hemog lobin detection by immunologic methodOrdered By: Dr. Umanzor on 04-10-2022 Lower GI hemoglobin IA Ql (Stl) [facility] Body fluid amylase measureme nt (enzymatic activity/volume)Ordered By: Dr. Umanzor on 04-09-2022 Amylase (Body fld) [Catalytic activity/Vol] 11 U/L . [facility] Body fluid pH measurementOrd ered By: Dr. Umanzor on 04-09-2022 pH (Body fld) 7.1 [pH] Not Estab. [facility] INR in Blood by Coagulation assayOrdered By: Dr. Archuleta on 04-09-2022 INR Coag (Bld) [Relative time] 1.2 {INR} [facility] No Panel InformationOrdered By: Dr. Archuleta on 04-09-2022 15.0 SECONDS 11.7-14.9 [facility] 38.8 Seconds 24.1-36.2 [facility] Serum or plasma albumin/glob ulin mass ratioOrdered By: Dr. Umanzor on 04-09-2022 Albumin/Globulin [Mass ratio] 0.6 {ratio} 0.9-2.4 [facility] Hemoglobin in reticulocytes (mass per reticulocyte)Ordered By: Dr. Umanzor on 04-07-2022 Hemoglobin (Reticulocytes) [Entitic mass] 25.3 pg 30-35 [facility] Iron measurement (mass/mass) Ordered By: Dr. Umanzor on 04-07-2022 Iron (Unsp spec) [Mass/Mass] 14 ug/dL 65-175 [facility] No Panel InformationOrdered By: Dr. Umanzor on 04-07-2022 1.40 % 0.5-1.5 [facility] 19.20 % 3.00-15.90 [facility] 1661 pg/mL 211-911 [facility] 208 ug/dL 250-450 [facility] 374 mg/dL 38-329 [facility] Serum or plasma ferritin genaro surement (mass/volume)Ordered By: Dr. Umanzor on 04-07-2022 Ferritin [Mass/Vol] 166 ng/mL 26-388 [facility] Serum or plasma iron saturat ion measurement (mass fraction)Ordered By: Dr. Umanzor on 04-07-2022 Iron saturation [Mass fraction] 6.7 % 15.0-55.0 [facility] Urine creatinine measurement (mass/volume)Ordered By: Dr. Umanzor on 04-06-2022 Creatinine (U) [Mass/Vol] 60.10 mg/dL NO RANGE EST. [facility] Urine protein measurement (m ass/volume)Ordered By: Dr. Umanzor on 04-06-2022 Protein (U) [Mass/Vol] 48.1 mg/dL 0.0-11.8 [facility] Urine protein/creatinine mas s ratioOrdered By: Dr. Umanzor on 04-06-2022 Protein/Creatinine (U) [Mass ratio] 800 mg/g CRE 0-200 [facility] Absolute lymphocyte countOrd ered By: Dr. Milner on 04-05-2022 Lymphocytes Auto (Unsp spec) [#/Vol] 0.93 10*3/uL 0.83-4.51 [facility] Basophil percentageOrdered B y: Dr. Milner on 04-05-2022 Basophil percentage 136 mg/dL 74-106 [facility] Basophil percentage 139 mmol/L 136-145 [facility] Basophil percentage 3.8 mmol/L 3.5-5.1 [facility] Basophil percentage 107 mmol/L 98-107 [facility] Basophil percentage 1.0 mmol/L 0.4-2.0 [facility] Basophils (Bld) [#/Vol] 9.0 10*3/uL 4.4-11.0 [facility] Basophils (Bld) [#/Vol] 6.2 10*3/uL 2.0-7.7 [facility] Basophils/100 WBC (Bld) 69.3 % 47-70 [facility] Basophils/100 WBC (Bld) 5.4 % 0-5 [facility] Basophils/100 WBC (Bld) 0.7 % 0-1 [facility] Blood erythrocytes count (nu mber/volume)Ordered By: Dr. Milner on 04-05-2022 RBC (Bld) [#/Vol] 3.07 10*6/uL 4.6-6.2 [facility] Blood hemoglobin measurement (mass/volume)Ordered By: Dr. Milner on 04-05-2022 Hemoglobin (Bld) [Mass/Vol] 8.6 g/dL 13.0-16.5 [facility] Blood lymphocytes/100 leukoc ytesOrdered By: Dr. Milner on 04-05-2022 Lymphocytes/100 WBC (Bld) 10.3 % 19-41 [facility] Blood monocytes/100 leukocyt esOrdered By: Dr. Milner on 04-05-2022 Monocytes/100 WBC (Bld) 14.2 % 0-10 [facility] Blood platelet mean volumeOr dered By: Dr. Milner on 04-05-2022 Platelet mean volume (Bld) [Entitic vol] 10.4 fL 6.2-12.0 [facility] Determination of erythrocyte mean corpuscular volume (MCV)Ordered By: Dr. Milner on 04-05-2022 MCV (RBC) [Entitic vol] 89.3 fL 80-94 [facility] Hematocrit Auto (Bld) [Volum e fraction]Ordered By: Dr. Milner on 04-05-2022 Hematocrit (Bld) [Volume fraction] 27.4 % 40-54 [facility] MCHC Auto (RBC) [Mass/Vol]Or dered By: Dr. Milner on 04-05-2022 MCHC (RBC) [Mass/Vol] 31.4 g/dL 32-36 [facility] No Panel InformationOrdered By: Dr. Meyer on 04-05-2022 11 pg/mL 3.0-78.0 [facility] No Panel InformationOrdered By: Dr. Milner on 04-05-2022 11 pg/mL 3.0-78.0 [facility] 28.0 pg 27.0-32.0 [facility] 14.4 % 11.6-14.6 [facility] 46.4 fl 35.1-43.9 [facility] 0.100 % 0.0-0.9 [facility] 0 % 0-5 [facility] 40 mL/min >60 [facility] 48 mL/min >60 [facility] 35.52 ml/min [facility] 19.9 RATIO 10-20 [facility] 24.0 mmol/L 21.0-32.0 [facility] 282.1 pg/mL 0-100 [facility] Platelets bldOrdered By: Dr. Milner on 04-05-2022 Platelets (Bld) [#/Vol] 289 10*3/uL 150-450 [facility] Serum or plasma calcium shayan urement (mass/volume)Ordered By: Dr. Milner on 04-05-2022 Calcium [Mass/Vol] 9.0 mg/dL 8.5-10.1 [facility] Serum or plasma creatinine m easurement (mass/volume)Ordered By: Dr. Milner on 04-05-2022 Creatinine [Mass/Vol] 1.76 mg/dL 0.70-1.30 [facility] Serum or plasma urea nitroge n measurement (mass/volume)Ordered By: Dr. Milner on 04-05-2022 Urea nitrogen [Mass/Vol] 35 mg/dL 7-18 [facility] Thin prep Papanicolaou smear with manual screeningOrdered By: Dr. Milner on 04-05-2022 Thin prep Papanicolaou smear with manual screening 8 5-15 [facility] Glucose Glucometer (BldC) [M ass/Vol]Ordered By: Dr. Huffman on 03-10-2022 Glucose [Mass/Vol] 132 mg/dL 74-106 [facility] Comment on above: MANAGEMENT OF PATIEN T CARE PER NURSING PROTOCOL Absolute lymphocyte countOrd ered By: Dr. Huffman on 03-07-2022 Lymphocytes Auto (Unsp spec) [#/Vol] 1.39 10*3/uL 0.83-4.51 [facility] Basophil percentageOrdered B y: Dr. Huffman on 03-07-2022 Basophil percentage 180 mg/dL 74-106 [facility] Basophil percentage 137 mmol/L 136-145 [facility] Basophil percentage 4.4 mmol/L 3.5-5.1 [facility] Basophil percentage 103 mmol/L 98-107 [facility] Basophils (Bld) [#/Vol] 9.0 10*3/uL 4.4-11.0 [facility] Basophils (Bld) [#/Vol] 5.7 10*3/uL 2.0-7.7 [facility] Basophils/100 WBC (Bld) 0.7 % 0-1 [facility] Basophils/100 WBC (Bld) 62.7 % 47-70 [facility] Basophils/100 WBC (Bld) 7.9 % 0-5 [facility] Basophil percentageon 2021 Chloride [Moles/Vol] 103 mmol/L 98-107 [facility] Work Phone: Eosinophils/100 WBC (Bld) 7.9 % 0-5 [facility] Work Phone: Glucose [Mass/Vol] 180 mg/dL 74-106 [facility] Work Phone: Comment on above: Fasting Glucose resu lt greater than or equal to 126 mg/dL suggests DIABETES MELLITUS per A.D.A. criteria. Neutrophils (Bld) [#/Vol] 5.7 10*3/uL 2.0-7.7 [facility] Work Phone: [phone] Neutrophils/100 WBC (Bld) 62.7 % 47-70 [facility] Work Phone: Potassium [Moles/Vol] 4.4 mmol/L 3.5-5.1 [facility] Work Phone: Sodium [Moles/Vol] 137 mmol/L 136-145 [facility] Work Phone: [phone] WBC (Bld) [#/Vol] 9.0 10*3/uL 4.4-11.0 [facility] Work Phone: Blood erythrocytes count (nu mber/volume)Ordered By: Dr. Huffman on 03-07-2022 RBC (Bld) [#/Vol] 2.82 10*6/uL 4.6-6.2 [facility] Blood hemoglobin measurement (mass/volume)Ordered By: Dr. Huffman on 03-07-2022 Hemoglobin (Bld) [Mass/Vol] 8.2 g/dL 13.0-16.5 [facility] Blood lymphocytes/100 leukoc ytesOrdered By: Dr. Huffman on 03-07-2022 Lymphocytes/100 WBC (Bld) 15.4 % 19-41 [facility] Blood monocytes/100 leukocyt esOrdered By: Dr. Huffman on 03-07-2022 Monocytes/100 WBC (Bld) 12.9 % 0-10 [facility] Blood platelet mean volumeOr dered By: Dr. Huffman on 03-07-2022 Platelet mean volume (Bld) [Entitic vol] 10.6 fL 6.2-12.0 [facility] Determination of erythrocyte mean corpuscular volume (MCV)Ordered By: Dr. Huffman on 03-07-2022 MCV (RBC) [Entitic vol] 92.2 fL 80-94 [facility] Hematocrit Auto (Bld) [Volum e fraction]Ordered By: Dr. Huffman on 03-07-2022 Hematocrit (Bld) [Volume fraction] 26.0 % 40-54 [facility] Laboratory - Chemistry and C hemistry - challengeon 03-07-2022 CO2 [Moles/Vol] 29.0 mmol/L 21.0-32.0 [facility] Work Phone: [phone] Urea nitrogen/Creatinine [Mass ratio] 25.0 mg/mg 10-20 [facility] Work Phone: [phone] Laboratory - Hematology and Cell countson 03-07-2022 Erythrocyte distribution width (RBC) [Entitic vol] 46.6 fL 35.1-43.9 [facility] Work Phone: [phone] Erythrocyte distribution width (RBC) [Ratio] 13.8 % 11.6-14.6 [facility] Work Phone: [phone] Immature granulocytes/100 WBC (Bld) 0.400 % 0.0-0.9 [facility] Work Phone: [phone] Comment on above: IG% - Immature Granu locytes (promyelocytes, myelocytes and metamyelocytes) > 1% indicates that a LEFT SHIFT is Present. MCH (RBC) [Entitic mass] 29.1 pg 27.0-32.0 [facility] Work Phone: [phone] Nucleated RBC/100 WBC (Bld) [Ratio] 0 % 0-5 [facility] Work Phone: [phone] MCHC Auto (RBC) [Mass/Vol]Or dered By: Dr. Huffman on 03-07-2022 MCHC (RBC) [Mass/Vol] 31.5 g/dL 32-36 [facility] No Panel Informationon 03-07 Estimated Creatinine Clearance Calc 38.12 ml/min [facility] Work Phone: [phone] Estimated GFR (MDRD) Amer 52 mL/min >60 [facility] Work Phone: [phone] Comment on above: GFR Calc Estimated GFR (MDRD) Non-Af Amer 43 mL/min >60 [facility] Work Phone: Comment on above: Non- GFR Calc No Panel InformationOrdered By: Dr. Huffman on 03-07-2022 29.1 pg 27.0-32.0 [facility] 13.8 % 11.6-14.6 [facility] 46.6 fl 35.1-43.9 [facility] 0.400 % 0.0-0.9 [facility] 0 % 0-5 [facility] 43 mL/min >60 [facility] 52 mL/min >60 [facility] 38.12 ml/min [facility] 25.0 RATIO 10-20 [facility] 29.0 mmol/L 21.0-32.0 [facility] Platelets bldOrdered By: Dr. Huffman on 03-07-2022 Platelets (Bld) [#/Vol] 352 10*3/uL 150-450 [facility] Serum or plasma calcium shayan urement (mass/volume)Ordered By: Dr. Huffman on 03-07-2022 Calcium [Mass/Vol] 8.6 mg/dL 8.5-10.1 [facility] Serum or plasma creatinine m easurement (mass/volume)Ordered By: Dr. Huffman on 03-07-2022 Creatinine [Mass/Vol] 1.64 mg/dL 0.70-1.30 [facility] Comment on above: The validity of the calculated GFR & GFRAA in patients over 70 years has not been determined. Clinical correlation is essential. Serum or plasma urea nitroge n measurement (mass/volume)Ordered By: Dr. Huffman on 03-07-2022 Urea nitrogen [Mass/Vol] 41 mg/dL 7-18 [facility] Thin prep Papanicolaou smear with manual screeningOrdered By: Dr. Huffman on 03-07-2022 Thin prep Papanicolaou smear with manual screening 5 5-15 [facility] COVID-19 virus antigen assay Ordered By: Dr. Huffman on 03-03-2022 SARS-CoV-2 (COVID-19) Ag IA.rapid Ql (Resp) [facility] Absolute lymphocyte countOrd ered By: Dr. Umanzor on 02-27-2022 Lymphocytes Auto (Unsp spec) [#/Vol] 1.74 10*3/uL 0.83-4.51 [facility] Basophil percentageOrdered B y: Rosalba Bass on 02-27-2022 Basophil percentage 167 mg/dL 74-106 [facility] Basophil percentage 5.8 g/dL 6.4-8.2 [facility] Basophil percentage 0.40 mg/dL 0.20-1.00 [facility] Basophil percentage 142 mmol/L 136-145 [facility] Basophil percentage 4.1 mmol/L 3.5-5.1 [facility] Basophil percentage 109 mmol/L 98-107 [facility] Basophil percentageOrdered B y: Dr. Umanzor on 02-27-2022 Basophils (Bld) [#/Vol] 11.8 10*3/uL 4.4-11.0 [facility] Basophils (Bld) [#/Vol] 8.0 10*3/uL 2.0-7.7 [facility] Basophils/100 WBC (Bld) 0.8 % 0-1 [facility] Basophils/100 WBC (Bld) 68.0 % 47-70 [facility] Basophils/100 WBC (Bld) 5.7 % 0-5 [facility] Basophil percentageon 2021 Bilirubin [Mass/Vol] 0.40 mg/dL 0.20-1.00 [facility] Work Phone: Comment on above: For patients on eltr ombopag therapy, use of Dimension [place] TBIL is not recommended. Chloride [Moles/Vol] 109 mmol/L 98-107 [facility] Work Phone: Eosinophils/100 WBC (Bld) 5.7 % 0-5 [facility] Work Phone: Glucose [Mass/Vol] 167 mg/dL 74-106 [facility] Work Phone: Comment on above: Fasting Glucose resu lt greater than or equal to 126 mg/dL suggests DIABETES MELLITUS per A.D.A. criteria. Neutrophils (Bld) [#/Vol] 8.0 10*3/uL 2.0-7.7 [facility] Work Phone: Neutrophils/100 WBC (Bld) 68.0 % 47-70 [facility] Work Phone: Potassium [Moles/Vol] 4.1 mmol/L 3.5-5.1 [facility] Work Phone: Protein [Mass/Vol] 5.8 g/dL 6.4-8.2 [facility] Work Phone: Sodium [Moles/Vol] 142 mmol/L 136-145 [facility] Work Phone: [phone] WBC (Bld) [#/Vol] 11.8 10*3/uL 4.4-11.0 [facility] Work Phone: Blood erythrocytes count (nu mber/volume)Ordered By: Dr. Umanzor on 02-27-2022 RBC (Bld) [#/Vol] 3.01 10*6/uL 4.6-6.2 [facility] Blood hemoglobin measurement (mass/volume)Ordered By: Dr. Umanzor on 02-27-2022 Hemoglobin (Bld) [Mass/Vol] 8.9 g/dL 13.0-16.5 [facility] [facility] Blood lymphocytes/100 leukoc ytesOrdered By: Dr. Umanzor on 02-27-2022 Lymphocytes/100 WBC (Bld) 14.7 % 19-41 [facility] Blood monocytes/100 leukocyt esOrdered By: Dr. Umanzor on 02-27-2022 Monocytes/100 WBC (Bld) 9.9 % 0-10 [facility] Blood platelet mean volumeOr dered By: Dr. Umanzor on 02-27-2022 Platelet mean volume (Bld) [Entitic vol] 10.3 fL 6.2-12.0 [facility] COVID-19 virus antigen assay Ordered By: Dr. Umanzor on 02-27-2022 SARS-CoV-2 (COVID-19) Ag IA.rapid Ql (Resp) [facility] Culture, urineOrdered By: Dr Johanna Umanzor on 02-27-2022 Bacteria identified Cx Nom (U) Culture exhibits no growth. [facility] Determination of erythrocyte mean corpuscular volume (MCV)Ordered By: Dr. Umanzor on 02-27-2022 MCV (RBC) [Entitic vol] 92.7 fL 80-94 [facility] Glucose Glucometer (BldC) [M ass/Vol]Ordered By: Dr. Umanzor on 02-27-2022 Glucose [Mass/Vol] 254 mg/dL 74-106 [facility] Comment on above: MANAGEMENT OF PATIEN T CARE PER NURSING PROTOCOL Hematocrit Auto (Bld) [Volum e fraction]Ordered By: Dr. Umanzor on 02-27-2022 Hematocrit (Bld) [Volume fraction] 27.9 % 40-54 [facility] Laboratory - Chemistry and C hemistry - challengeon 02-27-2022 ALP [Catalytic activity/Vol] 48 U/L 45-117 [facility] Work Phone: ALT [Catalytic activity/Vol] 16 U/L 16-61 [facility] Work Phone: CO2 [Moles/Vol] 26.0 mmol/L 21.0-32.0 [facility] Work Phone: Globulin (S) [Mass/Vol] 3.5 g/dL 2.2-4.2 [facility] Work Phone: Urea nitrogen/Creatinine [Mass ratio] 30.5 mg/mg 10-20 [facility] Work Phone: Laboratory - Hematology and Cell countson 02-27-2022 Erythrocyte distribution width (RBC) [Entitic vol] 47.7 fL 35.1-43.9 [facility] Work Phone: Erythrocyte distribution width (RBC) [Ratio] 13.9 % 11.6-14.6 [facility] Work Phone: Immature granulocytes/100 WBC (Bld) 0.900 % 0.0-0.9 [facility] Work Phone: [phone] Comment on above: IG% - Immature Granu locytes (promyelocytes, myelocytes and metamyelocytes) > 1% indicates that a LEFT SHIFT is Present. MCH (RBC) [Entitic mass] 29.6 pg 27.0-32.0 [facility] Work Phone: Nucleated RBC/100 WBC (Bld) [Ratio] 0 % 0-5 [facility] Work Phone: MCHC Auto (RBC) [Mass/Vol]Or dered By: Dr. Umanzor on 02-27-2022 MCHC (RBC) [Mass/Vol] 31.9 g/dL 32-36 [facility] No Panel Informationon 02-27 Estimated Creatinine Clearance Calc 40.59 ml/min [facility] Work Phone: Estimated GFR (MDRD) Amer 56 mL/min >60 [facility] Work Phone: Comment on above: GFR Calc Estimated GFR (MDRD) Non-Af Amer 46 mL/min >60 [facility] Work Phone: Comment on above: Non- GFR Calc No Panel InformationOrdered By: Dr. Umanzor on 02-27-2022 29.6 pg 27.0-32.0 [facility] 13.9 % 11.6-14.6 [facility] 47.7 fl 35.1-43.9 [facility] 0.900 % 0.0-0.9 [facility] 0 % 0-5 [facility] No Panel InformationOrdered By: Rosalba Bass on 02-27-2022 46 mL/min >60 [facility] 56 mL/min >60 [facility] 40.59 ml/min [facility] 30.5 RATIO 10-20 [facility] 3.5 g/dL 2.2-4.2 [facility] 48 U/L 45-117 [facility] 16 U/L 16-61 [facility] 26.0 mmol/L 21.0-32.0 [facility] Platelets bldOrdered By: Dr. Umanzor on 02-27-2022 Platelets (Bld) [#/Vol] 363 10*3/uL 150-450 [facility] Serum or plasma albumin shayan urement (mass/volume)Ordered By: Rosalba Bass on 02-27-2022 Albumin [Mass/Vol] 2.3 g/dL 3.2-5.0 [facility] Serum or plasma albumin/glob ulin mass ratioOrdered By: Rosalba Bass on 02-27-2022 Albumin/Globulin [Mass ratio] 0.7 {ratio} 0.9-2.4 [facility] Serum or plasma calcium shayan urement (mass/volume)Ordered By: Rosalba Bass on 02-27-2022 Calcium [Mass/Vol] 9.0 mg/dL 8.5-10.1 [facility] Serum or plasma creatinine m easurement (mass/volume)Ordered By: Rosalba Bass on 02-27-2022 Creatinine [Mass/Vol] 1.54 mg/dL 0.70-1.30 [facility] Comment on above: The validity of the calculated GFR & GFRAA in patients over 70 years has not been determined. Clinical correlation is essential. Serum or plasma urea nitroge n measurement (mass/volume)Ordered By: Rosalba Bass on 02-27-2022 Urea nitrogen [Mass/Vol] 47 mg/dL 7-18 [facility] Thin prep Papanicolaou smear with manual screeningOrdered By: Rosalba Bass on 02-27-2022 Thin prep Papanicolaou smear with manual screening 7 U/L 15-37 [facility] Thin prep Papanicolaou smear with manual screening 7 5-15 [facility] Basophil percentageOrdered B y: Rosalba Bass on 02-26-2022 Basophil percentage 3.7 mg/dL 2.5-4.9 [facility] Laboratory - Chemistry and C hemistry - challengeon 02-26-2022 CK [Catalytic activity/Vol] 22 U/L 39-308 [facility] Work Phone: No Panel InformationOrdered By: Rosalba Bass on 02-26-2022 22 U/L 39-308 [facility] No Panel Informationon 02-25 Thyroid Stimulating Hormone (TSH) 0.91 uIU/mL 0.358-3.74 [facility] Work Phone: No Panel InformationOrdered By: Dr. Umanzor on 02-25-2022 0.91 uIU/mL 0.358-3.74 [facility] Basophil percentageOrdered B y: Dr. Siu on 02-24-2022 Basophil percentage 0-5 SEEN /hpf 0-5 [facility] Bilirubin Test strip Ql (U)O rdered By: Dr. Siu on 02-24-2022 Bilirubin Ql (U) Negative Negative [facility] Ketones Test strip Ql (U)Ord ered By: Dr. Siu on 02-24-2022 Ketones Ql (U) Negative Negative [facility] Laboratory - Chemistry and C hemistry - challengeon 02-24-2022 Magnesium [Mass/Vol] 2.1 mg/dL 1.6-2.6 [facility] Work Phone: Mucus LM Ql (Urine sed)Order ed By: Dr. Siu on 02-24-2022 Mucus Ql (Urine sed) 0 SEEN /hpf [facility] Nitrite Test strip Ql (U)Ord ered By: Dr. Siu on 02-24-2022 Nitrite Ql (U) Negative Negative [facility] No Panel InformationOrdered By: Dr. Umanzor on 02-24-2022 2.1 mg/dL 1.6-2.6 [facility] Protein Test strip Ql (U)Ord ered By: Dr. Siu on 02-24-2022 Protein Ql (U) 100 mg/dl Negative [facility] Squamous epithelial cells de tection in urine sediment by light microscopyOrdered By: Dr. Siu on 02-24-2022 Epithelial cells.squamous LM Ql (Urine sed) 0-5 SEEN /hpf 0-5 [facility] Urine blood detectionOrdered By: Dr. Siu on 02-24-2022 RBC Ql (U) Negative Negative [facility] RBC Ql (U) 0 SEEN /hpf 0-5 [facility] Urine clarityOrdered By: Dr. Siu on 02-24-2022 Clarity (U) Sl. Cloudy Clear [facility] Urine color determinationOrd ered By: Dr. Siu on 02-24-2022 Color (U) Yellow Yellow [facility] Urine glucose detectionOrder ed By: Dr. Siu on 02-24-2022 Glucose Ql (U) Normal mg/dl Normal [facility] Urine leukocyte esterase det ection by dipstickOrdered By: Dr. Siu on 02-24-2022 Leukocyte esterase Test strip Ql (U) Negative Negative [facility] Urine pHOrdered By: Dr. Jamari keating on 02-24-2022 pH (U) 6.0 [pH] 5.0 - 8.0 [facility] Urine sediment bacteria coun t by microscopy (number/high power field)Ordered By: Dr. Siu on 02-24-2022 Bacteria LM.HPF (Urine sed) [#/Area] 0 /[HPF] None Seen [facility] Urine specific gravity measu rementOrdered By: Dr. Siu on 02-24-2022 Specific gravity (U) [Rel density] 1.015 1.002-1.030 [facility] Urobilinogen Auto test strip Ql (U)Ordered By: Dr. Siu on 02-24-2022 Urobilinogen Ql (U) Normal mg/dl Normal [facility] No Panel InformationOrdered By: Dr. Alonzo on 02-22-2022 No growth in 5 days. [facility] Absolute lymphocyte countOrd ered By: Dr. Sanchez on 02-20-2022 Lymphocytes Auto (Unsp spec) [#/Vol] 1.26 10*3/uL 0.83-4.51 [facility] Basophil percentageOrdered B y: Dr. Sanchez on 02-20-2022 Basophil percentage 205 mg/dL 74-106 [facility] Basophil percentage 140 mmol/L 136-145 [facility] Basophil percentage 4.0 mmol/L 3.5-5.1 [facility] Basophil percentage 109 mmol/L 98-107 [facility] Basophils (Bld) [#/Vol] 12.3 10*3/uL 4.4-11.0 [facility] Basophils (Bld) [#/Vol] 9.5 10*3/uL 2.0-7.7 [facility] Basophils/100 WBC (Bld) 0.4 % 0-1 [facility] Basophils/100 WBC (Bld) 76.7 % 47-70 [facility] Basophils/100 WBC (Bld) 1.8 % 0-5 [facility] Basophil percentageon 2021 Chloride [Moles/Vol] 109 mmol/L 98-107 [facility] Work Phone: Eosinophils/100 WBC (Bld) 1.8 % 0-5 [facility] Work Phone: Glucose [Mass/Vol] 205 mg/dL 74-106 [facility] Work Phone: Comment on above: Glucose result great er than or equal to 200 mg/dLsuggests DIABETES MELLITUS per A.D.A. criteria. Neutrophils (Bld) [#/Vol] 9.5 10*3/uL 2.0-7.7 [facility] Work Phone: Neutrophils/100 WBC (Bld) 76.7 % 47-70 [facility] Work Phone: Potassium [Moles/Vol] 4.0 mmol/L 3.5-5.1 [facility] Work Phone: Sodium [Moles/Vol] 140 mmol/L 136-145 [facility] Work Phone: WBC (Bld) [#/Vol] 12.3 10*3/uL 4.4-11.0 [facility] Work Phone: Blood erythrocytes count (nu mber/volume)Ordered By: Dr. Sanchez on 02-20-2022 RBC (Bld) [#/Vol] 3.06 10*6/uL 4.6-6.2 [facility] Blood hemoglobin measurement (mass/volume)Ordered By: Dr. Sanchez on 02-20-2022 Hemoglobin (Bld) [Mass/Vol] 9.2 g/dL 13.0-16.5 [facility] Blood lymphocytes/100 leukoc ytesOrdered By: Dr. Sanchez on 02-20-2022 Lymphocytes/100 WBC (Bld) 10.2 % 19-41 [facility] Blood monocytes/100 leukocyt esOrdered By: Dr. Sanchez on 02-20-2022 Monocytes/100 WBC (Bld) 10.0 % 0-10 [facility] Blood platelet mean volumeOr dered By: Dr. Sanchez on 02-20-2022 Platelet mean volume (Bld) [Entitic vol] 10.6 fL 6.2-12.0 [facility] Determination of erythrocyte mean corpuscular volume (MCV)Ordered By: Dr. Sanchez on 02-20-2022 MCV (RBC) [Entitic vol] 92.8 fL 80-94 [facility] Glucose Glucometer (BldC) [M ass/Vol]Ordered By: Dr. Sanchez on 02-20-2022 Glucose [Mass/Vol] 269 mg/dL 74-106 [facility] Comment on above: MANAGEMENT OF PATIEN T CARE PER NURSING PROTOCOL Hematocrit Auto (Bld) [Volum e fraction]Ordered By: Dr. Sanchez on 02-20-2022 Hematocrit (Bld) [Volume fraction] 28.4 % 40-54 [facility] Laboratory - Chemistry and C hemistry - challengeon 02-20-2022 CO2 [Moles/Vol] 23.0 mmol/L 21.0-32.0 [facility] Work Phone: Urea nitrogen/Creatinine [Mass ratio] 25.0 mg/mg 10-20 [facility] Work Phone: Laboratory - Hematology and Cell countson 02-20-2022 Erythrocyte distribution width (RBC) [Entitic vol] 48.0 fL 35.1-43.9 [facility] Work Phone: Erythrocyte distribution width (RBC) [Ratio] 14.2 % 11.6-14.6 [facility] Work Phone: Immature granulocytes/100 WBC (Bld) 0.900 % 0.0-0.9 [facility] Work Phone: Comment on above: IG% - Immature Granu locytes (promyelocytes, myelocytes and metamyelocytes) > 1% indicates that a LEFT SHIFT is Present. MCH (RBC) [Entitic mass] 30.1 pg 27.0-32.0 [facility] Work Phone: Nucleated RBC/100 WBC (Bld) [Ratio] 0 % 0-5 [facility] Work Phone: MCHC Auto (RBC) [Mass/Vol]Or dered By: Dr. Sanchez on 02-20-2022 MCHC (RBC) [Mass/Vol] 32.4 g/dL 32-36 [facility] No Panel Informationon 02-20 Estimated Creatinine Clearance Calc 33.11 ml/min [facility] Work Phone: Estimated GFR (MDRD) Amer 49 mL/min >60 [facility] Work Phone: Comment on above: GFR Calc Estimated GFR (MDRD) Non-Af Amer 41 mL/min >60 [facility] Work Phone: Comment on above: Non- GFR Calc No Panel InformationOrdered By: Dr. Sanchez on 02-20-2022 30.1 pg 27.0-32.0 [facility] 14.2 % 11.6-14.6 [facility] 48.0 fl 35.1-43.9 [facility] 0.900 % 0.0-0.9 [facility] 0 % 0-5 [facility] 41 mL/min >60 [facility] 49 mL/min >60 [facility] 33.11 ml/min [facility] 25.0 RATIO 10-20 [facility] 23.0 mmol/L 21.0-32.0 [facility] Platelets bldOrdered By: Dr. Sanchez on 02-20-2022 Platelets (Bld) [#/Vol] 216 10*3/uL 150-450 [facility] Serum or plasma calcium shayan urement (mass/volume)Ordered By: Dr. Sanchze on 02-20-2022 Calcium [Mass/Vol] 8.8 mg/dL 8.5-10.1 [facility] Serum or plasma creatinine m easurement (mass/volume)Ordered By: Dr. Sanchez on 02-20-2022 Creatinine [Mass/Vol] 1.72 mg/dL 0.70-1.30 [facility] Comment on above: The validity of the calculated GFR & GFRAA in patients over 70 years has not been determined. Clinical correlation is essential. Serum or plasma urea nitroge n measurement (mass/volume)Ordered By: Dr. Sanchez on 02-20-2022 Urea nitrogen [Mass/Vol] 43 mg/dL 7-18 [facility] Thin prep Papanicolaou smear with manual screeningOrdered By: Dr. Sanchez on 02-20-2022 Thin prep Papanicolaou smear with manual screening 8 5-15 [facility] Basophil percentageOrdered B y: Dr. Sanchez on 02-19-2022 Basophil percentage 3.5 mg/dL 2.5-4.9 [facility] Laboratory - Chemistry and C hemistry - challengeon 02-19-2022 Magnesium [Mass/Vol] 1.8 mg/dL 1.6-2.6 [facility] Work Phone: No Panel InformationOrdered By: Dr. Sanchez on 02-19-2022 1.8 mg/dL 1.6-2.6 [facility] Basophil percentageOrdered B y: Dr. Aguila on 02-18-2022 Basophil percentage 6.1 g/dL 6.4-8.2 [facility] Basophil percentage 0.60 mg/dL 0.20-1.00 [facility] Basophil percentageon 2021 Bilirubin [Mass/Vol] 0.60 mg/dL 0.20-1.00 [facility] Work Phone: Comment on above: For patients on eltr ombopag therapy, use of Dimension [place] TBIL is not recommended. Protein [Mass/Vol] 6.1 g/dL 6.4-8.2 [facility] Work Phone: Laboratory - Chemistry and C hemistry - challengeon 02-18-2022 ALP [Catalytic activity/Vol] 47 U/L 45-117 [facility] Work Phone: ALT [Catalytic activity/Vol] 17 U/L 16- [facility] Work Phone: Globulin (S) [Mass/Vol] 3.2 g/dL 2.2-4.2 [facility] Work Phone: No Panel InformationOrdered By: Dr. Aguila on 02-18-2022 3.2 g/dL 2.2-4.2 [facility] 47 U/L 45-117 [facility] 17 U/L 16- [facility] Serum or plasma albumin shayan urement (mass/volume)Ordered By: Dr. Aguila on 02-18-2022 Albumin [Mass/Vol] 2.9 g/dL 3.2-5.0 [facility] Serum or plasma albumin/glob ulin mass ratioOrdered By: Dr. Aguila on 02-18-2022 Albumin/Globulin [Mass ratio] 0.9 {ratio} 0.9-2.4 [facility] Thin prep Papanicolaou smear with manual screeningOrdered By: Dr. Aguila on 02-18-2022 Thin prep Papanicolaou smear with manual screening 8 U/L 15-37 [facility] Absolute lymphocyte counton 02-17-2022 Lymphocytes Auto (Unsp spec) [#/Vol] 1.63 10*3/uL 0.83-4.51 [facility] Work Phone: Basophil percentageon 2021 Basophils/100 WBC (Bld) 0.9 % 0-1 [facility] Work Phone: Bilirubin [Mass/Vol] 0.30 mg/dL 0.20-1.00 [facility] Work Phone: Comment on above: For patients on eltr ombopag therapy, use of Dimension [place] TBIL is not recommended. Chloride [Moles/Vol] 108 mmol/L 98-107 [facility] Work Phone: Eosinophils/100 WBC (Bld) 4.3 % 0-5 [facility] Work Phone: Glucose [Mass/Vol] 111 mg/dL 74-106 [facility] Work Phone: Comment on above: Fasting Glucose resu lt from 100 to 125 mg/dL suggests IMPAIRED HOMEOSTASIS per A.D.A. criteria. Neutrophils (Bld) [#/Vol] 6.1 10*3/uL 2.0-7.7 [facility] Work Phone: Neutrophils/100 WBC (Bld) 67.0 % 47-70 [facility] Work Phone: [phone] Potassium [Moles/Vol] 5.6 mmol/L 3.5-5.1 [facility] Work Phone: Comment on above: Moderate Hemolysis, Result may be falsely increased. Protein [Mass/Vol] 6.3 g/dL 6.4-8.2 [facility] Work Phone: Sodium [Moles/Vol] 139 mmol/L 136-145 [facility] Work Phone: WBC (Bld) [#/Vol] 9.1 10*3/uL 4.4-11.0 [facility] Work Phone: Blood erythrocytes count (nu mber/volume)on 02-17-2022 RBC (Bld) [#/Vol] 3.16 10*6/uL 4.6-6.2 [facility] Work Phone: Blood hemoglobin measurement (mass/volume)on 02-17-2022 Hemoglobin (Bld) [Mass/Vol] 9.6 g/dL 13.0-16.5 [facility] Work Phone: Blood lymphocytes/100 leukoc yteson 02-17-2022 Lymphocytes/100 WBC (Bld) 17.9 % 19-41 [facility] Work Phone: Blood monocytes/100 leukocyt eson 02-17-2022 Monocytes/100 WBC (Bld) 9.5 % 0-10 [facility] Work Phone: Blood platelet mean volumeon 02-17-2022 Platelet mean volume (Bld) [Entitic vol] 11.1 fL 6.2-12.0 [facility] Work Phone: Determination of erythrocyte mean corpuscular volume (MCV)on 02-17-2022 MCV (RBC) [Entitic vol] 92.1 fL 80-94 [facility] Work Phone: Glucose Glucometer (BldC) [M ass/Vol]on 02-17-2022 Glucose [Mass/Vol] 156 mg/dL 74-106 [facility] Work Phone: Comment on above: MANAGEMENT OF PATIEN T CARE PER NURSING PROTOCOL Hematocrit Auto (Bld) [Volum e fraction]on 02-17-2022 Hematocrit (Bld) [Volume fraction] 29.1 % 40-54 [facility] Work Phone: Laboratory - Chemistry and C hemistry - challengeon 02-17-2022 ALP [Catalytic activity/Vol] 48 U/L 45-117 [facility] Work Phone: [phone] [Catalytic activity/Vol] 21 U/L 16-61 [facility] Work Phone: [phone] CO2 [Moles/Vol] 26.0 mmol/L 21.0-32.0 [facility] Work Phone: [phone] Globulin (S) [Mass/Vol] 3.4 g/dL 2.2-4.2 [facility] Work Phone: [phone] Magnesium [Mass/Vol] 2.1 mg/dL 1.6-2.6 [facility] Work Phone: [phone] Comment on above: Moderate Hemolysis, Result may be falsely increased. Urea nitrogen/Creatinine [Mass ratio] 23.0 mg/mg 10-20 [facility] Work Phone: [phone] Laboratory - Hematology and Cell countson 02-17-2022 Erythrocyte distribution width (RBC) [Entitic vol] 48.2 fL 35.1-43.9 [facility] Work Phone: [phone] Erythrocyte distribution width (RBC) [Ratio] 14.3 % 11.6-14.6 [facility] Work Phone: [phone] Immature granulocytes/100 WBC (Bld) 0.400 % 0.0-0.9 [facility] Work Phone: [phone] Comment on above: IG% - Immature Granu locytes (promyelocytes, myelocytes and metamyelocytes) > 1% indicates that a LEFT SHIFT is Present. MCH (RBC) [Entitic mass] 30.4 pg 27.0-32.0 [facility] Work Phone: [phone] Nucleated RBC/100 WBC (Bld) [Ratio] 0 % 0-5 [facility] Work Phone: [phone] MCHC Auto (RBC) [Mass/Vol]on 02-17-2022 MCHC (RBC) [Mass/Vol] 33.0 g/dL 32-36 [facility] Work Phone: No Panel Informationon 02-17 Estimated Creatinine Clearance Calc 27.92 ml/min [facility] Work Phone: Estimated GFR (MDRD) Amer 40 mL/min >60 [facility] Work Phone: Comment on above: GFR Calc Estimated GFR (MDRD) Non-Af Amer 33 mL/min >60 [facility] Work Phone: Comment on above: Non- GFR Calc Platelets bldon 02-17-2022 Platelets (Bld) [#/Vol] 261 10*3/uL 150-450 [facility] Work Phone: Serum or plasma albumin shayan urement (mass/volume)on 02-17-2022 Albumin [Mass/Vol] 2.9 g/dL 3.2-5.0 [facility] Work Phone: Serum or plasma albumin/glob ulin mass ratioon 02-17-2022 Albumin/Globulin [Mass ratio] 0.9 {ratio} 0.9-2.4 [facility] Work Phone: Serum or plasma calcium shayan urement (mass/volume)on 02-17-2022 Calcium [Mass/Vol] 8.7 mg/dL 8.5-10.1 [facility] Work Phone: Serum or plasma creatinine m easurement (mass/volume)on 02-17-2022 Creatinine [Mass/Vol] 2.04 mg/dL 0.70-1.30 [facility] Work Phone: Comment on above: The validity of the calculated GFR & GFRAA in patients over 70 years has not been determined. Clinical correlation is essential. Serum or plasma urea nitroge n measurement (mass/volume)on 02-17-2022 Urea nitrogen [Mass/Vol] 47 mg/dL 7-18 [facility] Work Phone: Thin prep Papanicolaou smear with manual screeningon 02-17-2022 Thin prep Papanicolaou smear with manual screening 26 U/L 15-37 [facility] Work Phone: Comment on above: Moderate Hemolysis, Result may be falsely increased. Thin prep Papanicolaou smear with manual screening 5 5-15 [facility] Work Phone: Basophil percentageOrdered B y: Dr. Alonzo on 02-16-2022 Basophil percentage 1.3 mmol/L 0.4-2.0 [facility] Basophil percentageon 2021 Lactate [Moles/Vol] 1.3 mmol/L 0.4-2.0 [facility] Work Phone: INR in Blood by Coagulation assayOrdered By: Dr. Alonzo on 02-16-2022 INR Coag (Bld) [Relative time] 1.2 {INR} [facility] Laboratory - Chemistry and C hemistry - challengeon 02-16-2022 Natriuretic peptide B (Bld) [Mass/Vol] 389.9 pg/mL 0-100 [facility] Work Phone: Laboratory - Coagulationon 1 04-19-2021 PT Coag (PPP) [Time] 14.5 s 11.7-14.9 [facility] Work Phone: No Panel Informationon 02-16 Troponin I High Sensitivity 8 pg/mL 3.0-78.0 [facility] Work Phone: Comment on above: Please Note: [place] t Units and Gender Specific Reference Ranges. For more information see Policy Stat Procedure [place] High Sensitivity Troponin (TNIH) and attachments. Thyroid Stimulating Hormone (TSH) 2.51 uIU/mL 0.358-3.74 [facility] Work Phone: No Panel InformationOrdered By: Dr. Alonzo on 02-16-2022 8 pg/mL 3.0-78.0 [facility] 14.5 SECONDS 11.7-14.9 [facility] 2.51 uIU/mL 0.358-3.74 [facility] 389.9 pg/mL 0-100 [facility] Stool gastrointestinal hemog lobin detection by immunologic methodOrdered By: Dr. Alonzo on 02-16-2022 Lower GI hemoglobin IA Ql (Stl) [facility] Absolute lymphocyte countOrd ered By: Dr. Arredondo on 01-18-2022 Lymphocytes Auto (Unsp spec) [#/Vol] 1.30 10*3/uL 0.83-4.51 [facility] Basophil percentageOrdered B y: Dr. Arredondo on 01-18-2022 Basophil percentage 3.8 mg/dL 2.5-4.9 [facility] Basophil percentage 91 mg/dL 74-106 [facility] Basophil percentage 138 mmol/L 136-145 [facility] Basophil percentage 5.2 mmol/L 3.5-5.1 [facility] Basophil percentage 108 mmol/L 98-107 [facility] Basophils (Bld) [#/Vol] 6.9 10*3/uL 4.4-11.0 [facility] Basophils (Bld) [#/Vol] 4.3 10*3/uL 2.0-7.7 [facility] Basophils/100 WBC (Bld) 0.9 % 0-1 [facility] Basophils/100 WBC (Bld) 63.2 % 47-70 [facility] Basophils/100 WBC (Bld) 5.1 % 0-5 [facility] Basophil percentageon 2021 Chloride [Moles/Vol] 108 mmol/L 98-107 [facility] Work Phone: Eosinophils/100 WBC (Bld) 5.1 % 0-5 [facility] Work Phone: Glucose [Mass/Vol] 91 mg/dL 74-106 [facility] Work Phone: Neutrophils (Bld) [#/Vol] 4.3 10*3/uL 2.0-7.7 [facility] Work Phone: Neutrophils/100 WBC (Bld) 63.2 % 47-70 [facility] Work Phone: Potassium [Moles/Vol] 5.2 mmol/L 3.5-5.1 [facility] Work Phone: Sodium [Moles/Vol] 138 mmol/L 136-145 [facility] Work Phone: WBC (Bld) [#/Vol] 6.9 10*3/uL 4.4-11.0 [facility] Work Phone: Bilirubin Test strip Ql (U)O rdered By: Dr. Arredondo on 01-18-2022 Bilirubin Ql (U) Negative Negative [facility] Blood erythrocytes count (nu mber/volume)Ordered By: Dr. Arredondo on 01-18-2022 RBC (Bld) [#/Vol] 3.42 10*6/uL 4.6-6.2 [facility] Blood hemoglobin measurement (mass/volume)Ordered By: Dr. Arredondo on 01-18-2022 Hemoglobin (Bld) [Mass/Vol] 10.2 g/dL 13.0-16.5 [facility] Blood lymphocytes/100 leukoc ytesOrdered By: Dr. Arredondo on 01-18-2022 Lymphocytes/100 WBC (Bld) 19.0 % 19-41 [facility] Blood monocytes/100 leukocyt esOrdered By: Dr. Arredondo on 01-18-2022 Monocytes/100 WBC (Bld) 11.5 % 0-10 [facility] Blood platelet mean volumeOr dered By: Dr. Arredondo on 01-18-2022 Platelet mean volume (Bld) [Entitic vol] 11.4 fL 6.2-12.0 [facility] Determination of erythrocyte mean corpuscular volume (MCV)Ordered By: Dr. Arredondo on 01-18-2022 MCV (RBC) [Entitic vol] 94.7 fL 80-94 [facility] Hematocrit Auto (Bld) [Volum e fraction]Ordered By: Dr. Arredondo on 01-18-2022 Hematocrit (Bld) [Volume fraction] 32.4 % 40-54 [facility] Iron measurement (mass/mass) Ordered By: Dr. Arredondo on 01-18-2022 Iron (Unsp spec) [Mass/Mass] 44 ug/dL 65-175 [facility] Ketones Test strip Ql (U)Ord ered By: Dr. Arredondo on 01-18-2022 Ketones Ql (U) Negative Negative [facility] Laboratory - Chemistry and C hemistry - challengeon 01-18-2022 Albumin [Mass/Vol] 3.6 g/dL 2.9-4.4 [facility] Work Phone: CO2 [Moles/Vol] 24.0 mmol/L 21.0-32.0 [facility] Work Phone: Urea nitrogen/Creatinine [Mass ratio] 23.6 mg/mg 10-20 [facility] Work Phone: [phone] Laboratory - Hematology and Cell countson 01-18-2022 Erythrocyte distribution width (RBC) [Entitic vol] 50.1 fL 35.1-43.9 [facility] Work Phone: Erythrocyte distribution width (RBC) [Ratio] 14.3 % 11.6-14.6 [facility] Work Phone: Immature granulocytes/100 WBC (Bld) 0.300 % 0.0-0.9 [facility] Work Phone: Comment on above: IG% - Immature Granu locytes (promyelocytes, myelocytes and metamyelocytes) > 1% indicates that a LEFT SHIFT is Present. MCH (RBC) [Entitic mass] 29.8 pg 27.0-32.0 [facility] Work Phone: Nucleated RBC/100 WBC (Bld) [Ratio] 0.3 % 0-5 [facility] Work Phone: MCHC Auto (RBC) [Mass/Vol]Or dered By: Dr. Arredondo on 01-18-2022 MCHC (RBC) [Mass/Vol] 31.5 g/dL 32-36 [facility] Nitrite Test strip Ql (U)Ord ered By: Dr. Arredondo on 01-18-2022 Nitrite Ql (U) Negative Negative [facility] No Panel Informationon 01-18 Vitamin D 25-Hydroxy 52.7 ng/mL [facility] Work Phone: Comment on above: Vitamin D 25(OH) Sta tus Range Deficiency <20 ng/mL (50nmol/L) Insufficiency 20 - 30 ng/mL (50 - 75 nmol/L) Sufficiency 30 - 100 ng/mL (75 - 250 nmol/L) Toxicity >100 ng/mL (>250 nmol/L) Yovhw-8-Btfmexvhx 0.3 g/dL 0.0-0.4 [facility] Work Phone: Jzajs-5-Hufeqcnei 0.9 g/dL 0.4-1.0 [facility] Work Phone: Estimated GFR (MDRD) Amer 52 mL/min >60 [facility] Work Phone: Comment on above: GFR Calc Estimated GFR (MDRD) Non-Af Amer 43 mL/min >60 [facility] Work Phone: Comment on above: Non- GFR Calc Gamma Globulins 0.7 g/dL 0.4-1.8 [facility] Work Phone: Parathyroid Hormone (Intact) 15.9 pg/mL 18.4-80.1 [facility] Work Phone: Prostate Specific Antigen Screen 0.79 ng/mL 0.00-4.00 [facility] Work Phone: Comment on above: This test was perfor med using the TPSA assay method for [employer] chemistry system. Values obtained with differentassay methods cannot be used interchangably.When changing PSA assays in the course of monitoring apatient, additional sequential testing should be carriedout to confirm baseline values. Total Iron Binding Capacity 306 ug/dL 250-450 [facility] Work Phone: No Panel InformationOrdered By: Dr. Arredondo on 01-18-2022 52.7 ng/mL [facility] Addendum Document Comment . [facility] Comment on above: The SPE pattern appe ars unremarkable. Evidence ofmonoclonal protein is not apparent. 29.8 pg 27.0-32.0 [facility] 14.3 % 11.6-14.6 [facility] 50.1 fl 35.1-43.9 [facility] 0.300 % 0.0-0.9 [facility] 0.3 % 0-5 [facility] 43 mL/min >60 [facility] 52 mL/min >60 [facility] 23.6 RATIO 10-20 [facility] 24.0 mmol/L 21.0-32.0 [facility] 0.79 ng/mL 0.00-4.00 [facility] 306 ug/dL 250-450 [facility] 15.9 pg/mL 18.4-80.1 [facility] 3.6 g/dL 2.9-4.4 [facility] 0.3 g/dL 0.0-0.4 [facility] 0.9 g/dL 0.4-1.0 [facility] 0.7 g/dL 0.4-1.8 [facility] Plasma renin measurement (en zymatic activity/volume)Ordered By: Dr. Arredondo on 01-18-2022 Renin (P) [Catalytic activity/Vol] 1.244 ng/mL/hr 0.167-5.380 [facility] Comment on above: Performed at: [address] [id number] Director: Basil Fernandez PhD, Phone: [phone] at: - [place] [id number] Director: Job Souza MD, Phone: [phone] Platelets bldOrdered By: Dr. Arredondo on 01-18-2022 Platelets (Bld) [#/Vol] 218 10*3/uL 150-450 [facility] Protein Fractions Elph [Inte rp]Ordered By: Dr. Arredondo on 01-18-2022 Protein Fractions [Interp] Comment . [facility] Comment on above: Protein electrophore sis scan will follow via computer,mail, or environmental management specialist delivery. Protein Test strip Ql (U)Ord ered By: Dr. Arredondo on 01-18-2022 Protein Ql (U) 30 mg/dl Negative [facility] Serum albumin to globulin ra tavon by protein electrophoresisOrdered By: Dr. Arredondo on 01-18-2022 Albumin/Globulin Elph [Mass ratio] 1.3 0.7-1.7 [facility] Serum globulin measurement ( mass/volume)Ordered By: Dr. Arredondo on 01-18-2022 Globulin (S) [Mass/Vol] 2.8 g/dL 2.2-3.9 [facility] Serum or plasma albumin shayan urement (mass/volume)Ordered By: Dr. Arredondo on 01-18-2022 Albumin [Mass/Vol] 3.4 g/dL 3.2-5.0 [facility] Serum or plasma beta globuli n measurement by electrophoresis (mass/volume)Ordered By: Dr. Arredondo on 01-18-2022 Beta globulin Elph [Mass/Vol] 0.9 g/dL 0.7-1.3 [facility] Serum or plasma calcium shayan urement (mass/volume)Ordered By: Dr. Arredondo on 01-18-2022 Calcium [Mass/Vol] 9.0 mg/dL 8.5-10.1 [facility] Serum or plasma creatinine m easurement (mass/volume)Ordered By: Dr. Arredondo on 01-18-2022 Creatinine [Mass/Vol] 1.65 mg/dL 0.70-1.30 [facility] Comment on above: The validity of the calculated GFR & GFRAA in patients over 70 years has not been determined. Clinical correlation is essential. Serum or plasma ferritin genaro surement (mass/volume)Ordered By: Dr. Arredondo on 01-18-2022 Ferritin [Mass/Vol] 48 ng/mL 26-388 [facility] Serum or plasma iron saturat ion measurement (mass fraction)Ordered By: Dr. Arredondo on 01-18-2022 Iron saturation [Mass fraction] 14.4 % 15.0-55.0 [facility] Serum or plasma urea nitroge n measurement (mass/volume)Ordered By: Dr. Arredondo on 01-18-2022 Urea nitrogen [Mass/Vol] 39 mg/dL 7-18 [facility] Thin prep Papanicolaou smear with manual screeningOrdered By: Dr. Arredondo on 01-18-2022 Thin prep Papanicolaou smear with manual screening See comment [facility] Comment on above: Result: Not Observed Thin prep Papanicolaou smear with manual screening 3.2 ng/dL 0.0-30.0 [facility] Total protein bloodOrdered B y: Dr. Arredondo on 01-18-2022 Protein [Mass/Vol] 6.4 g/dL 6.0-8.5 [facility] Urine blood detectionOrdered By: Dr. Arredondo on 01-18-2022 RBC Ql (U) 10 /ul Negative [facility] Urine clarityOrdered By: Dr. Arredondo on 01-18-2022 Clarity (U) Clear Clear [facility] Urine color determinationOrd ered By: Dr. Arredondo on 01-18-2022 Color (U) Yellow Yellow [facility] Urine creatinine measurement (mass/volume)Ordered By: Dr. Arredondo on 01-18-2022 Creatinine (U) [Mass/Vol] 62.60 mg/dL NO RANGE EST. [facility] Urine glucose detectionOrder ed By: Dr. Arredondo on 01-18-2022 Glucose Ql (U) Normal mg/dl Normal [facility] Urine leukocyte esterase det ection by dipstickOrdered By: Dr. Arredondo on 01-18-2022 Leukocyte esterase Test strip Ql (U) Negative Negative [facility] Urine pHOrdered By: Dr. Kofi gonzalez on 01-18-2022 pH (U) 6.0 [pH] 5.0 - 8.0 [facility] Urine protein measurement (m ass/volume)Ordered By: Dr. Arredondo on 01-18-2022 Protein (U) [Mass/Vol] 39.9 mg/dL 0.0-11.8 [facility] Urine specific gravity measu rementOrdered By: Dr. Arredondo on 01-18-2022 Specific gravity (U) [Rel density] 1.010 1.002-1.030 [facility] Urobilinogen Auto test strip Ql (U)Ordered By: Dr. Arredondo on 01-18-2022 Urobilinogen Ql (U) Normal mg/dl Normal [facility] Laboratory - Hematology and Cell countson 01-06-2022 HbA1c (Bld) [Mass fraction] 6.4 % 4.2-6.3 [facility] Work Phone: Comment on above: POC A1C previously r eported as 6.5 No Panel Informationon 01-06 6.4 % 4.2-6.3 [facility] Basophil percentageon 2021 Chloride [Moles/Vol] 100 mmol/L 98-107 [facility] Work Phone: Glucose [Mass/Vol] 109 mg/dL 74-106 [facility] Work Phone: Comment on above: Fasting Glucose resu lt from 100 to 125 mg/dL suggests IMPAIRED HOMEOSTASIS per A.D.A. criteria. Potassium [Moles/Vol] 4.0 mmol/L 3.5-5.1 [facility] Work Phone: Sodium [Moles/Vol] 138 mmol/L 136-145 [facility] Work Phone: Laboratory - Chemistry and C hemistry - challengeon 11-17-2021 CO2 [Moles/Vol] 29.0 mmol/L 21.0-32.0 [facility] Work Phone: Urea nitrogen/Creatinine [Mass ratio] 18.7 mg/mg 10-20 [facility] Work Phone: No Panel Informationon 11-17 Estimated GFR (MDRD) Amer 72 mL/min >60 [facility] Work Phone: Comment on above: GFR Calc Estimated GFR (MDRD) Non-Af Amer 60 mL/min >60 [facility] Work Phone: Comment on above: Non- GFR Calc Serum or plasma calcium shayan urement (mass/volume)on 11-17-2021 Calcium [Mass/Vol] 9.2 mg/dL 8.5-10.1 [facility] Work Phone: Serum or plasma creatinine m easurement (mass/volume)on 11-17-2021 Creatinine [Mass/Vol] 1.23 mg/dL 0.70-1.30 [facility] Work Phone: Comment on above: The validity of the calculated GFR & GFRAA in patients over 70 years has not been determined. Clinical correlation is essential. Serum or plasma urea nitroge n measurement (mass/volume)on 11-17-2021 Urea nitrogen [Mass/Vol] 23 mg/dL 7-18 [facility] Work Phone: Thin prep Papanicolaou smear with manual screeningon 11-17-2021 Thin prep Papanicolaou smear with manual screening 9 5-15 [facility] Work Phone: Basophil percentageon 2021 Chloride [Moles/Vol] 102 mmol/L 98-107 [facility] Work Phone: Glucose [Mass/Vol] 108 mg/dL 74-106 [facility] Work Phone: Comment on above: Fasting Glucose resu lt from 100 to 125 mg/dL suggests IMPAIRED HOMEOSTASIS per A.D.A. criteria. Potassium [Moles/Vol] 4.5 mmol/L 3.5-5.1 [facility] Work Phone: Sodium [Moles/Vol] 137 mmol/L 136-145 [facility] Work Phone: Iron measurement (mass/mass) on 10-09-2021 Iron (Unsp spec) [Mass/Mass] 60 ug/dL 65-175 [facility] Work Phone: Laboratory - Chemistry and C hemistry - challengeon 10-09-2021 CO2 [Moles/Vol] 29.0 mmol/L 21.0-32.0 [facility] Work Phone: Cobalamin (Vitamin B12) [Mass/Vol] 809 pg/mL 211-911 [facility] Work Phone: Urea nitrogen/Creatinine [Mass ratio] 18.2 mg/mg 10-20 [facility] Work Phone: No Panel Informationon 10-09 Estimated GFR (MDRD) Amer 67 mL/min >60 [facility] Work Phone: Comment on above: GFR Calc Estimated GFR (MDRD) Non-Af Amer 55 mL/min >60 [facility] Work Phone: Comment on above: Non- GFR Calc Total Iron Binding Capacity 292 ug/dL 250-450 [facility] Work Phone: Serum or plasma calcium shayan urement (mass/volume)on 10-09-2021 Calcium [Mass/Vol] 8.9 mg/dL 8.5-10.1 [facility] Work Phone: Serum or plasma creatinine m easurement (mass/volume)on 10-09-2021 Creatinine [Mass/Vol] 1.32 mg/dL 0.70-1.30 [facility] Work Phone: Comment on above: The validity of the calculated GFR & GFRAA in patients over 70 years has not been determined. Clinical correlation is essential. Serum or plasma folate measu rement (mass/volume)on 10-09-2021 Folate [Mass/Vol] 6.80 ng/mL 3.1-55.4 [facility] Work Phone: Serum or plasma iron saturat ion measurement (mass fraction)on 10-09-2021 Iron saturation [Mass fraction] 20.5 % 15.0-55.0 [facility] Work Phone: Serum or plasma urea nitroge n measurement (mass/volume)on 10-09-2021 Urea nitrogen [Mass/Vol] 24 mg/dL 7-18 [facility] Work Phone: Thin prep Papanicolaou smear with manual screeningon 10-09-2021 Thin prep Papanicolaou smear with manual screening 6 5-15 [facility] Work Phone: Whole blood hemoglobin A1c/t otal hemoglobin ratio (mass fraction)on 10-09-2021 HbA1c (Bld) [Mass fraction] 6.5 % 3.8-5.6 [facility] Work Phone: Comment on above: Normal < 5.7 % Predi abetic 5.7 - 6.4 % Diabetic >or= 6.5 % Please note range changes. Absolute lymphocyte counton 09-16-2021 Lymphocytes Auto (Unsp spec) [#/Vol] 1.31 10*3/uL 0.83-4.51 [facility] Work Phone: Basophil percentageon 2021 Basophils/100 WBC (Bld) 0.7 % 0-1 [facility] Work Phone: Chloride [Moles/Vol] 102 mmol/L 98-107 [facility] Work Phone: Eosinophils/100 WBC (Bld) 2.9 % 0-5 [facility] Work Phone: Glucose [Mass/Vol] 116 mg/dL 74-106 [facility] Work Phone: Comment on above: Fasting Glucose resu lt from 100 to 125 mg/dL suggests IMPAIRED HOMEOSTASIS per A.D.A. criteria. Neutrophils (Bld) [#/Vol] 4.6 10*3/uL 2.0-7.7 [facility] Work Phone: Neutrophils/100 WBC (Bld) 66.0 % 47-70 [facility] Work Phone: Potassium [Moles/Vol] 4.6 mmol/L 3.5-5.1 [facility] Work Phone: Sodium [Moles/Vol] 136 mmol/L 136-145 [facility] Work Phone: WBC (Bld) [#/Vol] 7.0 10*3/uL 4.4-11.0 [facility] Work Phone: Blood erythrocytes count (nu mber/volume)on 09-16-2021 RBC (Bld) [#/Vol] 3.59 10*6/uL 4.6-6.2 [facility] Work Phone: Blood hemoglobin measurement (mass/volume)on 09-16-2021 Hemoglobin (Bld) [Mass/Vol] 10.8 g/dL 13.0-16.5 [facility] Work Phone: Blood lymphocytes/100 leukoc yteson 09-16-2021 Lymphocytes/100 WBC (Bld) 18.8 % 19-41 [facility] Work Phone: Blood monocytes/100 leukocyt eson 09-16-2021 Monocytes/100 WBC (Bld) 11.5 % 0-10 [facility] Work Phone: Blood platelet mean volumeon 09-16-2021 Platelet mean volume (Bld) [Entitic vol] 11.4 fL 6.2-12.0 [facility] Work Phone: [phone] Determination of erythrocyte mean corpuscular volume (MCV)on 09-16-2021 MCV (RBC) [Entitic vol] 91.4 fL 80-94 [facility] Work Phone: [phone] Hematocrit Auto (Bld) [Volum e fraction]on 09-16-2021 Hematocrit (Bld) [Volume fraction] 32.8 % 40-54 [facility] Work Phone: [phone] Laboratory - Chemistry and C hemistry - challengeon 09-16-2021 CO2 [Moles/Vol] 28.0 mmol/L 21.0-32.0 [facility] Work Phone: [phone] Magnesium [Mass/Vol] 2.0 mg/dL 1.6-2.6 [facility] Work Phone: [phone] Urea nitrogen/Creatinine [Mass ratio] 25.2 mg/mg 10-20 [facility] Work Phone: [phone] Laboratory - Hematology and Cell countson 09-16-2021 Erythrocyte distribution width (RBC) [Entitic vol] 54.0 fL 35.1-43.9 [facility] Work Phone: [phone] Erythrocyte distribution width (RBC) [Ratio] 16.0 % 11.6-14.6 [facility] Work Phone: [phone] Immature granulocytes/100 WBC (Bld) 0.100 % 0.0-0.9 [facility] Work Phone: [phone] Comment on above: IG% - Immature Granu locytes (promyelocytes, myelocytes and metamyelocytes) > 1% indicates that a LEFT SHIFT is Present. MCH (RBC) [Entitic mass] 30.1 pg 27.0-32.0 [facility] Work Phone: [phone] Nucleated RBC/100 WBC (Bld) [Ratio] 0 % 0-5 [facility] Work Phone: [phone] MCHC Auto (RBC) [Mass/Vol]on 09-16-2021 MCHC (RBC) [Mass/Vol] 32.9 g/dL 32-36 [facility] Work Phone: No Panel Informationon 09-16 Estimated GFR (MDRD) Amer 63 mL/min >60 [facility] Work Phone: Comment on above: GFR Calc Estimated GFR (MDRD) Non-Af Amer 52 mL/min >60 [facility] Work Phone: Comment on above: Non- GFR Calc Platelets bldon 09-16-2021 Platelets (Bld) [#/Vol] 218 10*3/uL 150-450 [facility] Work Phone: Serum or plasma calcium shayan urement (mass/volume)on 09-16-2021 Calcium [Mass/Vol] 9.2 mg/dL 8.5-10.1 [facility] Work Phone: Serum or plasma creatinine m easurement (mass/volume)on 09-16-2021 Creatinine [Mass/Vol] 1.39 mg/dL 0.70-1.30 [facility] Work Phone: Comment on above: The validity of the calculated GFR & GFRAA in patients over 70 years has not been determined. Clinical correlation is essential. Serum or plasma urea nitroge n measurement (mass/volume)on 09-16-2021 Urea nitrogen [Mass/Vol] 35 mg/dL 7-18 [facility] Work Phone: [phone] Thin prep Papanicolaou smear with manual screeningon 09-16-2021 Thin prep Papanicolaou smear with manual screening 6 5-15 [facility] Work Phone: Basophil percentageon 2021 Basophil percentage Comment . [facility] Work Phone: Comment on above: No monoclonality det ected.Performed at: [facility] [address] [id number] Director: Basil Fernandez PhD, Phone: [phone] Albumin Elph [Mass/Vol]on Albumin [Mass/Vol] 3.4 g/dL 2.9-4.4 [facility] Work Phone: Interpretation of serum or p lasma protein pattern by immunofixation (narrative resulton 09-09-2021 Protein Fractions Immunofixation Leighton [Interp] See comment [facility] Work Phone: Comment on above: Result: Not Observed No Panel Informationon 09-09 Addendum Document Comment . [facility] Work Phone: Comment on above: Protein electrophore sis scan will follow via computer,mail, or environmental management specialist delivery. Free Lambda Light Chains, Quant 27.6 mg/L 5.7-26.3 [facility] Work Phone: Serum [id number] measu rement by electrophoresison 09-09-2021 Alpha 1 globulin Elph [Mass/Vol] 0.2 g/dL 0.0-0.4 [facility] Work Phone: [phone] Alpha 1 globulin Elph [Mass/Vol] 0.9 g/dL 0.4-1.0 [facility] Work Phone: Serum globulin measurement ( mass/volume)on 09-09-2021 Globulin (S) [Mass/Vol] 2.8 g/dL 2.2-3.9 [facility] Work Phone: Serum immunoglobulin kappa l ight chains/immunoglobulin lambda light chains mass ratioon 09-09-2021 Immunoglobulin light chains.kappa/Immunoglobul in light chains.lambda (S) [Mass ratio] 1.89 0.26-1.65 [facility] Work Phone: Comment on above: Performed at: [address] [id number] Director: Basil Fernandez PhD, Phone: [phone] Serum or plasma IgA measurem ent (mass/volume)on 09-09-2021 IgA [Mass/Vol] 206 mg/dL 61-437 [facility] Work Phone: [phone] Serum or plasma IgG measurem ent (mass/volume)on 09-09-2021 IgG [Mass/Vol] 848 mg/dL [phone] [facility] Work Phone: Serum or plasma IgM measurem ent (mass/volume)on 09-09-2021 IgM [Mass/Vol] 52 mg/dL 15-143 [facility] Work Phone: Serum or plasma beta globuli n measurement by electrophoresis (mass/volume)on 09-09-2021 Beta globulin Elph [Mass/Vol] 0.9 g/dL 0.7-1.3 [facility] Work Phone: Serum or plasma gamma globul in measurement by electrophoresis (mass/volume)on 09-09-2021 Gamma globulin Elph [Mass/Vol] 0.7 g/dL 0.4-1.8 [facility] Work Phone: Serum or plasma immunoelectr ophoresis interpretation (nominal result)on 09-09-2021 Interpretation IEP [Interp] Comment . [facility] Work Phone: Comment on above: No monoclonality det ected. Serum or plasma immunoglobul in kappa light chains measurement (mass/volume)on 09-09-2021 Immunoglobulin light chains.kappa [Mass/Vol] 52.2 mg/L 3.3-19.4 [facility] Work Phone: Thin prep Papanicolaou smear with manual screeningon 09-09-2021 Thin prep Papanicolaou smear with manual screening 1.3 0.7-1.7 [facility] Work Phone: Total protein bloodon 2021 Protein [Mass/Vol] 6.2 g/dL 6.0-8.5 [facility] Work Phone: Basophil percentageon 2021 Basophil percentage 3.5 mg/dL 2.5-4.9 [facility] Work Phone: Chloride [Moles/Vol] 99 mmol/L 98-107 [facility] Work Phone: Glucose [Mass/Vol] 141 mg/dL 74-106 [facility] Work Phone: Comment on above: Fasting Glucose resu lt greater than or equal to 126 mg/dL suggests DIABETES MELLITUS per A.D.A. criteria. Potassium [Moles/Vol] 4.2 mmol/L 3.5-5.1 [facility] Work Phone: [phone] Sodium [Moles/Vol] 135 mmol/L 136-145 [facility] Work Phone: [phone] WBC (Bld) [#/Vol] 8.4 10*3/uL 4.4-11.0 [facility] Work Phone: [phone] Blood erythrocytes count (nu mber/volume)on 08-05-2021 RBC (Bld) [#/Vol] 4.02 10*6/uL 4.6-6.2 [facility] Work Phone: [phone] Blood hemoglobin measurement (mass/volume)on 08-05-2021 Hemoglobin (Bld) [Mass/Vol] 11.9 g/dL 13.0-16.5 [facility] Work Phone: [phone] Blood platelet mean volumeon 08-05-2021 Platelet mean volume (Bld) [Entitic vol] 9.8 fL 6.2-12.0 [facility] Work Phone: [phone] Determination of erythrocyte mean corpuscular volume (MCV)on 08-05-2021 MCV (RBC) [Entitic vol] 89.6 fL 80-94 [facility] Work Phone: [phone] Hematocrit Auto (Bld) [Volum e fraction]on 08-05-2021 Hematocrit (Bld) [Volume fraction] 36.0 % 40-54 [facility] Work Phone: [phone] Laboratory - Chemistry and C hemistry - challengeon 08-05-2021 CO2 [Moles/Vol] 32.0 mmol/L 21.0-32.0 [facility] Work Phone: [phone] Urea nitrogen/Creatinine [Mass ratio] 22.3 mg/mg 10-20 [facility] Work Phone: [phone] Laboratory - Hematology and Cell countson 08-05-2021 Erythrocyte distribution width (RBC) [Entitic vol] 52.1 fL 35.1-43.9 [facility] Work Phone: Erythrocyte distribution width (RBC) [Ratio] 15.8 % 11.6-14.6 [facility] Work Phone: MCH (RBC) [Entitic mass] 29.6 pg 27.0-32.0 [facility] Work Phone: MCHC Auto (RBC) [Mass/Vol]on 08-05-2021 MCHC (RBC) [Mass/Vol] 33.1 g/dL 32-36 [facility] Work Phone: No Panel Informationon 08-05 Estimated Creatinine Clearance Calc 46.66 ml/min [facility] Work Phone: Estimated GFR (MDRD) Amer 68 mL/min >60 [facility] Work Phone: Comment on above: GFR Calc Estimated GFR (MDRD) Non-Af Amer 56 mL/min >60 [facility] Work Phone: Comment on above: Non- GFR Calc Platelets bldon 08-05-2021 Platelets (Bld) [#/Vol] 235 10*3/uL 150-450 [facility] Work Phone: Serum or plasma albumin shayan urement (mass/volume)on 08-05-2021 Albumin [Mass/Vol] 3.1 g/dL 3.2-5.0 [facility] Work Phone: [phone] Serum or plasma calcium shayan urement (mass/volume)on 08-05-2021 Calcium [Mass/Vol] 9.2 mg/dL 8.5-10.1 [facility] [place] Work Phone: Serum or plasma creatinine m easurement (mass/volume)on 08-05-2021 Creatinine [Mass/Vol] 1.30 mg/dL 0.70-1.30 [facility] Work Phone: Comment on above: The validity of the calculated GFR & GFRAA in patients over 70 years has not been determined. Clinical correlation is essential. Serum or plasma urea nitroge n measurement (mass/volume)on 08-05-2021 Urea nitrogen [Mass/Vol] 29 mg/dL 7-18 [facility] Work Phone: Basophil percentageon 2021 Basophil percentage Comment: [facility] Work Phone: Comment on above: Presence of monoclon al protein is unclear at this time. Suggestrepeat in 3 to 6 months if clinically indicated.Performed at: [facility] [id number] Director: Basil Fernandez PhD, Phone: [phone] Absolute lymphocyte counton 05-01-2021 Lymphocytes Auto (Unsp spec) [#/Vol] 2.05 10*3/uL 0.83-4.51 [facility] Work Phone: Basophil percentageon 2021 Basophil percentage 0 SEEN /hpf [facility] Work Phone: Basophils/100 WBC (Bld) 0.8 % 0-1 [facility] Work Phone: Bilirubin [Mass/Vol] 0.40 mg/dL 0.20-1.00 [facility] Work Phone: Comment on above: For patients on eltr ombopag therapy, use of Dimension [place] TBIL is not recommended. Chloride [Moles/Vol] 101 mmol/L 98-107 [facility] Work Phone: Eosinophils/100 WBC (Bld) 2.9 % 0-5 [facility] Work Phone: Glucose [Mass/Vol] 89 mg/dL 74-106 [facility] Work Phone: Neutrophils (Bld) [#/Vol] 4.7 10*3/uL 2.0-7.7 [facility] Work Phone: Neutrophils/100 WBC (Bld) 58.8 % 47-70 [facility] Work Phone: Potassium [Moles/Vol] 3.8 mmol/L 3.5-5.1 [facility] Work Phone: [phone] Protein [Mass/Vol] 6.9 g/dL 6.4-8.2 [facility] Work Phone: [phone] Sodium [Moles/Vol] 140 mmol/L 136-145 [facility] Work Phone: [phone] WBC (Bld) [#/Vol] 8.0 10*3/uL 4.4-11.0 [facility] Work Phone: [phone] Bilirubin Test strip Ql (U)o n 05-01-2021 Bilirubin Ql (U) Negative Negative [facility] Work Phone: Blood erythrocytes count (nu mber/volume)on 05-01-2021 RBC (Bld) [#/Vol] 4.17 10*6/uL 4.6-6.2 [facility] Work Phone: Blood hemoglobin measurement (mass/volume)on 05-01-2021 Hemoglobin (Bld) [Mass/Vol] 12.2 g/dL 13.0-16.5 [facility] Work Phone: [phone] Blood lymphocytes/100 leukoc yteson 05-01-2021 Lymphocytes/100 WBC (Bld) 25.7 % 19-41 [facility] Work Phone: [phone] Blood monocytes/100 leukocyt eson 05-01-2021 Monocytes/100 WBC (Bld) 11.4 % 0-10 [facility] Work Phone: [phone] Blood platelet mean volumeon 05-01-2021 Platelet mean volume (Bld) [Entitic vol] 12.1 fL 6.2-12.0 [facility] Work Phone: [phone] Determination of erythrocyte mean corpuscular volume (MCV)on 05-01-2021 MCV (RBC) [Entitic vol] 90.6 fL 80-94 [facility] Work Phone: [phone] Hematocrit Auto (Bld) [Volum e fraction]on 05-01-2021 Hematocrit (Bld) [Volume fraction] 37.8 % 40-54 [facility] Work Phone: [phone] Ketones Test strip Ql (U)on 05-01-2021 Ketones Ql (U) Negative Negative [facility] Work Phone: [phone] Laboratory - Chemistry and C hemistry - challengeon 05-01-2021 ALP [Catalytic activity/Vol] 60 U/L 45-117 [facility] Work Phone: [phone] ALT [Catalytic activity/Vol] 23 U/L 16-61 [facility] Work Phone: [phone] CO2 [Moles/Vol] 31.0 mmol/L 21.0-32.0 [facility] Work Phone: [phone] Globulin (S) [Mass/Vol] 3.5 g/dL 2.2-4.2 [facility] Work Phone: [phone] Urea nitrogen/Creatinine [Mass ratio] 16.1 mg/mg 10-20 [facility] Work Phone: [phone] Laboratory - Hematology and Cell countson 05-01-2021 Erythrocyte distribution width (RBC) [Entitic vol] 50.1 fL 35.1-43.9 [facility] Work Phone: [phone] Erythrocyte distribution width (RBC) [Ratio] 15.0 % 11.6-14.6 [facility] Work Phone: [phone] Immature granulocytes/100 WBC (Bld) 0.400 % 0.0-0.9 [facility] Work Phone: [phone] Comment on above: IG% - Immature Granu locytes (promyelocytes, myelocytes and metamyelocytes) > 1% indicates that a LEFT SHIFT is Present. MCH (RBC) [Entitic mass] 29.3 pg 27.0-32.0 [facility] Work Phone: [phone] Nucleated RBC/100 WBC (Bld) [Ratio] 0 % 0-5 [facility] Work Phone: [phone] MCHC Auto (RBC) [Mass/Vol]on 05-01-2021 MCHC (RBC) [Mass/Vol] 32.3 g/dL 32-36 [facility] Work Phone: Mucus LM Ql (Urine sed)on Mucus Ql (Urine sed) 0 SEEN /hpf [facility] Work Phone: [phone] Nitrite Test strip Ql (U)on 05-01-2021 Nitrite Ql (U) Negative Negative [facility] Work Phone: No Panel Informationon 05-01 Estimated Creatinine Clearance Calc 51.28 ml/min [facility] Work Phone: [phone] Estimated GFR (MDRD) Amer 72 mL/min >60 [facility] Work Phone: Comment on above: GFR Calc Estimated GFR (MDRD) Non-Af Amer 59 mL/min >60 [facility] Work Phone: Comment on above: Non- GFR Calc Troponin I High Sensitivity 11 pg/mL 3.0-78.0 [facility] Work Phone: Comment on above: Please Note: [place] t Units and Gender Specific Reference Ranges. For more information see Policy Stat Procedure [place] High Sensitivity Troponin (TNIH) and attachments. Platelets bldon 05-01-2021 Platelets (Bld) [#/Vol] 239 10*3/uL 150-450 [facility] Work Phone: [phone] Protein Test strip Ql (U)on 05-01-2021 Protein Ql (U) 100 mg/dl Negative [facility] Work Phone: [phone] Serum or plasma albumin shayan urement (mass/volume)on 05-01-2021 Albumin [Mass/Vol] 3.4 g/dL 3.2-5.0 [facility] Work Phone: [phone] Serum or plasma albumin/glob ulin mass ratioon 05-01-2021 Albumin/Globulin [Mass ratio] 1.0 {ratio} 0.9-2.4 [facility] Work Phone: [phone] Serum or plasma calcium shayan urement (mass/volume)on 05-01-2021 Calcium [Mass/Vol] 8.9 mg/dL 8.5-10.1 [facility] Work Phone: Serum or plasma creatinine m easurement (mass/volume)on 05-01-2021 Creatinine [Mass/Vol] 1.24 mg/dL 0.70-1.30 [facility] Work Phone: Comment on above: The validity of the calculated GFR & GFRAA in patients over 70 years has not been determined. Clinical correlation is essential. Serum or plasma urea nitroge n measurement (mass/volume)on 05-01-2021 Urea nitrogen [Mass/Vol] 20 mg/dL 09-28 [facility] Work Phone: Squamous epithelial cells de tection in urine sediment by light microscopyon 05-01-2021 Epithelial cells.squamous LM Ql (Urine sed) 0 SEEN /hpf [facility] Work Phone: Thin prep Papanicolaou smear with manual screeningon 05-01-2021 Thin prep Papanicolaou smear with manual screening 14 U/L 15-37 [facility] Work Phone: Thin prep Papanicolaou smear with manual screening 8 5-15 [facility] Work Phone: Urine blood detectionon 04-14 RBC Ql (U) 10 /ul Negative [facility] Work Phone: [phone] RBC Ql (U) 0 SEEN /hpf [facility] Work Phone: [phone] Urine clarityon 05-01-2021 Clarity (U) Clear Clear [facility] Work Phone: Urine color determinationon 05-01-2021 Color (U) Yellow Yellow [facility] Work Phone: Urine glucose detectionon Glucose Ql (U) Normal mg/dl Normal [facility] Work Phone: [phone] Urine leukocyte esterase det ection by dipstickon 05-01-2021 Leukocyte esterase Test strip Ql (U) Negative Negative [facility] Work Phone: [phone] Urine pHon 05-01-2021 pH (U) 6.5 [pH] [facility] Work Phone: Urine sediment bacteria coun t by microscopy (number/high power field)on 05-01-2021 Bacteria LM.HPF (Urine sed) [#/Area] 0 /[HPF] None Seen [facility] Work Phone: Urine specific gravity measu rementon 05-01-2021 Specific gravity (U) [Rel density] 1.010 [facility] Work Phone: Urobilinogen Auto test strip Ql (U)on 05-01-2021 Urobilinogen Ql (U) Normal mg/dl Normal [facility] Work Phone: Albumin Elph [Mass/Vol]on Albumin [Mass/Vol] Not Reportable [facility] Work Phone: Basophil percentageon 2021 Potassium [Moles/Vol] 3.6 mmol/L 3.5-5.1 [facility] Work Phone: Interpretation of serum or p lasma protein pattern by immunofixation (narrative resulton 04-30-2021 Protein Fractions Immunofixation Leighton [Interp] Not Reportable [facility] Work Phone: Serum [id number] measu rement by electrophoresison 04-30-2021 Alpha 1 globulin Elph [Mass/Vol] Not Reportable [facility] Work Phone: [phone] Serum or plasma IgA measurem ent (mass/volume)on 04-30-2021 IgA [Mass/Vol] Not Reportable [facility] Work Phone: [phone] Serum or plasma IgG measurem ent (mass/volume)on 04-30-2021 IgG [Mass/Vol] Not Reportable [facility] Work Phone: [phone] Serum or plasma IgM measurem ent (mass/volume)on 04-30-2021 IgM [Mass/Vol] Not Reportable [facility] Work Phone: [phone] Serum or plasma beta globuli n measurement by electrophoresis (mass/volume)on 04-30-2021 Beta globulin Elph [Mass/Vol] Not Reportable [facility] Work Phone: Serum or plasma gamma globul in measurement by electrophoresis (mass/volume)on 04-30-2021 Gamma globulin Elph [Mass/Vol] Not Reportable [facility] Work Phone: Thin prep Papanicolaou smear with manual screeningon 04-30-2021 Thin prep Papanicolaou smear with manual screening Not Reportable [facility] Work Phone: [phone] Total protein bloodon 2021 Protein [Mass/Vol] See comment [facility] Work Phone: Comment on above: TEST RESULT LIMITSIF E and PE, SerumImmunoglobulin G, Qn, Serum 716 mg/dL [id number] A, Qn, Serum 171 mg/dL 61-437Immunoglobulin M, Qn, Serum 57 mg/dL 15-143Protein, Total 5.7 Low g/dL 6.0-8.5Albumin 3.0 g/dL 2.9-4.6Efapg-9-Piucbxlc 0.2 g/dL 0.0-0.5Miqqe-4-Samvyqaw 0.9 g/dL 0.4-1.0Beta Globulin 0.8 g/dL 0.7-1.3Gamma Globulin 0.7 g/dL 0.4-1.8M-Abimael Not Observed g/dL Not ObservedGlobulin, Total 2.7 g/dL 2.2-3.9A/G Ratio 1.2 0.7-1.7Immunofixation Result, Serum No monoclonality detected.Please note: Protein electrophoresis scan will follow via computer, mail, or environmental management specialist delivery. TESTING PERFORMED AT [facility]. ORIGINAL REPORT ON FILE IN LAB CONTAINS ADDITIONAL TEST SITE INFORMATION. Absolute lymphocyte counton 04-22-2021 Lymphocytes Auto (Unsp spec) [#/Vol] 2.09 10*3/uL 0.83-4.51 [facility] Work Phone: Basophil percentageon 2021 Basophils/100 WBC (Bld) 0.8 % 0-1 [facility] Work Phone: Bilirubin [Mass/Vol] 0.50 mg/dL 0.20-1.00 [facility] Work Phone: Comment on above: For patients on eltr ombopag therapy, use of Dimension [place] TBIL is not recommended. Chloride [Moles/Vol] 98 mmol/L 98-107 [facility] Work Phone: Cholesterol [Mass/Vol] 188 mg/dL <200 [facility] Work Phone: Comment on above: <200 mg/dL Desirable 200-240 mg/dL Borderline >240 mg/dL High Risk Eosinophils/100 WBC (Bld) 2.8 % 0-5 [facility] Work Phone: Glucose [Mass/Vol] 159 mg/dL 74-106 [facility] Work Phone: Comment on above: Fasting Glucose resu lt greater than or equal to 126 mg/dL suggests DIABETES MELLITUS per A.D.A. criteria. Neutrophils (Bld) [#/Vol] 5.7 10*3/uL 2.0-7.7 [facility] Work Phone: Neutrophils/100 WBC (Bld) 63.1 % 47-70 [facility] Work Phone: Potassium [Moles/Vol] 3.6 mmol/L 3.5-5.1 [facility] Work Phone: Protein [Mass/Vol] 7.6 g/dL 6.4-8.2 [facility] Work Phone: Sodium [Moles/Vol] 138 mmol/L 136-145 [facility] Work Phone: [phone] Triglyceride [Mass/Vol] 139 mg/dL [facility] Work Phone: Comment on above: The drugs N-Acetylcy steine and Metamizole may falsely depress this assay.Serum Triglycerides Reference Interval Normal <150 mg/dL Borderline high 150 - 199 mg/dL High 200 - 499 mg/dL Very High > or = 500 mg/dL WBC (Bld) [#/Vol] 9.0 10*3/uL 4.4-11.0 [facility] Work Phone: [phone] Blood erythrocytes count (nu mber/volume)on 04-22-2021 RBC (Bld) [#/Vol] 4.61 10*6/uL 4.6-6.2 [facility] Work Phone: [phone] Blood hemoglobin measurement (mass/volume)on 04-22-2021 Hemoglobin (Bld) [Mass/Vol] 14.1 g/dL 13.0-16.5 [facility] Work Phone: Blood lymphocytes/100 leukoc yteson 04-22-2021 Lymphocytes/100 WBC (Bld) 23.2 % 19-41 [facility] Work Phone: [phone] Blood monocytes/100 leukocyt eson 04-22-2021 Monocytes/100 WBC (Bld) 9.9 % 0-10 [facility] Work Phone: [phone] Blood platelet mean volumeon 04-22-2021 Platelet mean volume (Bld) [Entitic vol] 11.3 fL 6.2-12.0 [facility] Work Phone: [phone] Determination of erythrocyte mean corpuscular volume (MCV)on 04-22-2021 MCV (RBC) [Entitic vol] 90.9 fL 80-94 [facility] Work Phone: [phone] Hematocrit Auto (Bld) [Volum e fraction]on 04-22-2021 Hematocrit (Bld) [Volume fraction] 41.9 % 40-54 [facility] Work Phone: Laboratory - Chemistry and C hemistry - challengeon 04-22-2021 Magnesium [Mass/Vol] 1.5 mg/dL [facility] Work Phone: [phone] Comment on above: Performed at: [address] [id number] Director: Basil Fernandez PhD, Phone: [phone] ALP [Catalytic activity/Vol] 68 U/L 45-117 [facility] Work Phone: [phone] ALT [Catalytic activity/Vol] 29 U/L 16-61 [facility] Work Phone: [phone] CO2 [Moles/Vol] 34.0 mmol/L 21.0-32.0 [facility] Work Phone: [phone] Globulin (S) [Mass/Vol] 4.1 g/dL 2.2-4.2 [facility] Work Phone: [phone] Urea nitrogen/Creatinine [Mass ratio] 14.9 mg/mg 10-20 [facility] Work Phone: [phone] Laboratory - Hematology and Cell countson 04-22-2021 Erythrocyte distribution width (RBC) [Entitic vol] 48.8 fL 35.1-43.9 [facility] Work Phone: [phone] Erythrocyte distribution width (RBC) [Ratio] 14.6 % 11.6-14.6 [facility] Work Phone: [phone] Immature granulocytes/100 WBC (Bld) 0.200 % 0.0-0.9 [facility] Work Phone: [phone] Comment on above: IG% - Immature Granu locytes (promyelocytes, myelocytes and metamyelocytes) > 1% indicates that a LEFT SHIFT is Present. MCH (RBC) [Entitic mass] 30.6 pg 27.0-32.0 [facility] Work Phone: [phone] Nucleated RBC/100 WBC (Bld) [Ratio] 0 % 0-5 [facility] Work Phone: [phone] MCHC Auto (RBC) [Mass/Vol]on 04-22-2021 MCHC (RBC) [Mass/Vol] 33.7 g/dL 32-36 [facility] Work Phone: No Panel Informationon 04-22 Estimated GFR (MDRD) Amer 79 mL/min >60 [facility] Work Phone: Comment on above: GFR Calc Estimated GFR (MDRD) Non-Af Amer 65 mL/min >60 [facility] Work Phone: Comment on above: Non- GFR Calc Platelets bldon 04-22-2021 Platelets (Bld) [#/Vol] 285 10*3/uL 150-450 [facility] Work Phone: Serum or plasma albumin shayan urement (mass/volume)on 04-22-2021 Albumin [Mass/Vol] 3.5 g/dL 3.2-5.0 [facility] Work Phone: Serum or plasma albumin/glob ulin mass ratioon 04-22-2021 Albumin/Globulin [Mass ratio] 0.9 {ratio} 0.9-2.4 [facility] Work Phone: Serum or plasma calcium shayan urement (mass/volume)on 04-22-2021 Calcium [Mass/Vol] 9.3 mg/dL 8.5-10.1 [facility] Work Phone: Serum or plasma cholesterol in HDL measurement (mass/volume)on 04-22-2021 Cholesterol in HDL [Mass/Vol] 39 mg/dL [facility] Work Phone: Comment on above: The drugs N-Acetylcy steine and Metamizole may falsely depress this assay. Reference Range HDL <40 mg/dL Low HDL Cholesterol HDL >or= 60 mg/dL High HDL Cholesterol Serum or plasma cholesterol in VLDL measurement (mass/volume)on 04-22-2021 Cholesterol in VLDL [Mass/Vol] 28 mg/dL 5-40 [facility] Work Phone: Serum or plasma creatinine m easurement (mass/volume)on 04-22-2021 Creatinine [Mass/Vol] 1.14 mg/dL 0.70-1.30 [facility] Work Phone: Comment on above: The validity of the calculated GFR & GFRAA in patients over 70 years has not been determined. Clinical correlation is essential. Serum or plasma low density lipoprotein (LDL) cholesterol measurement (mass/volume)on 04-22-2021 Cholesterol in LDL [Mass/Vol] 121 mg/dL 0-130 [facility] Work Phone: Serum or plasma urea nitroge n measurement (mass/volume)on 04-22-2021 Urea nitrogen [Mass/Vol] 17 mg/dL 7-18 [facility] Work Phone: Thin prep Papanicolaou smear with manual screeningon 04-22-2021 Thin prep Papanicolaou smear with manual screening 19 U/L 15-37 [facility] Work Phone: Thin prep Papanicolaou smear with manual screening 6 5-15 [facility] Work Phone: Whole blood hemoglobin A1c/t otal hemoglobin ratio (mass fraction)on 04-22-2021 HbA1c (Bld) [Mass fraction] 5.5 % 3.8-5.6 [facility] Work Phone: Comment on above: Normal < 5.7 % Predi abetic 5.7 - 6.4 % Diabetic >or= 6.5 % Please note range changes. Laboratory - Hematology and Cell countson 04-06-2021 HbA1c (Bld) [Mass fraction] 5.6 % [facility] Work Phone: Basophil percentageon 2020 Bilirubin [Mass/Vol] 0.50 mg/dL 0.20-1.00 [facility] Work Phone: Comment on above: For patients on eltr ombopag therapy, use of Dimension [place] TBIL is not recommended. Chloride [Moles/Vol] 101 mmol/L 98-107 [facility] Work Phone: Glucose [Mass/Vol] 64 mg/dL 74-106 [facility] Work Phone: Comment on above: Please note revised GLUCOSE reference range effective 2017. Potassium [Moles/Vol] 3.3 mmol/L 3.5-5.1 [facility] Work Phone: Protein [Mass/Vol] 7.8 g/dL 6.4-8.2 [facility] Work Phone: Sodium [Moles/Vol] 138 mmol/L 136-145 [facility] Work Phone: Laboratory - Chemistry and C hemistry - challengeon 03-10-2021 ALP [Catalytic activity/Vol] 68 U/L 45-117 [facility] Work Phone: ALT [Catalytic activity/Vol] 34 U/L 16-61 [facility] Work Phone: CO2 [Moles/Vol] 27.0 mmol/L 21.0-32.0 [facility] Work Phone: Cobalamin (Vitamin B12) [Mass/Vol] 270 pg/mL 211-911 [facility] Work Phone: Globulin (S) [Mass/Vol] 4.2 g/dL 2.2-4.2 [facility] Work Phone: Urea nitrogen/Creatinine [Mass ratio] 19.6 mg/mg 10-20 [facility] Work Phone: No Panel Informationon 03-10 Estimated GFR (MDRD) Amer 90 mL/min >60 [facility] Work Phone: Comment on above: GFR Calc Estimated GFR (MDRD) Non-Af Amer 74 mL/min >60 [facility] Work Phone: Comment on above: Non- GFR Calc Free Lambda Light Chains, Quant 19.5 mg/L [facility] Work Phone: Thyroid Stimulating Hormone (TSH) 1.30 uIU/mL 0.358-3.74 [facility] Work Phone: Serum immunoglobulin kappa l ight chains/immunoglobulin lambda light chains mass ratioon 03-10-2021 Immunoglobulin light chains.kappa/Immunoglobul in light chains.lambda (S) [Mass ratio] 1.67 [facility] Work Phone: [phone] Comment on above: Performed at: [address] [id number] Director: Basil Fernandez PhD, Phone: [phone] Serum or plasma albumin shayan urement (mass/volume)on 03-10-2021 Albumin [Mass/Vol] 3.6 g/dL 3.2-5.0 [facility] Work Phone: [phone] Serum or plasma albumin/glob ulin mass ratioon 03-10-2021 Albumin/Globulin [Mass ratio] 0.9 {ratio} 0.9-2.4 [facility] Work Phone: [phone] Serum or plasma calcium shayan urement (mass/volume)on 03-10-2021 Calcium [Mass/Vol] 9.2 mg/dL 8.5-10.1 [facility] Work Phone: [phone] Serum or plasma creatinine m easurement (mass/volume)on 03-10-2021 Creatinine [Mass/Vol] 1.02 mg/dL 0.70-1.30 [facility] Work Phone: Comment on above: The validity of the calculated GFR & GFRAA in patients over 70 years has not been determined. Clinical correlation is essential. Serum or plasma folate measu rement (mass/volume)on 03-10-2021 Folate [Mass/Vol] 12.30 ng/mL 3.1-55.4 [facility] Work Phone: [phone] Serum or plasma immunoglobul in kappa light chains measurement (mass/volume)on 03-10-2021 Immunoglobulin light chains.kappa [Mass/Vol] 32.6 mg/L [facility] Work Phone: [phone] Serum or plasma urea nitroge n measurement (mass/volume)on 03-10-2021 Urea nitrogen [Mass/Vol] 20 mg/dL 7-18 [facility] Work Phone: [phone] Thin prep Papanicolaou smear with manual screeningon 03-10-2021 Thin prep Papanicolaou smear with manual screening 16 U/L 15-37 [facility] Work Phone: Thin prep Papanicolaou smear with manual screening 10 5-15 [facility] Work Phone: Kris 02-02-[address] [facility] Telephone (DIANNEWADS) FRANCISCO THOMAS ([id number]) 1940 M Date Time Provider Department 02/02/21 EMELYN GIRALDO During your visit today, we recorded the following information about you: Kelvin Conn 02/02/2021 10:02 AM Signed Received orders from [facility]. Placed in provider's inbox for review. Route to [facility] Allergies As of Date: 02/02/2021 Noted Allergy Reaction CHOLESTYRAMINE 03/30/2012 14 - Other: See Comments Comments: caused low blood sugar MOBIC (MELOXICAM) 05/21/2009 7 - Swelling 9 - Itching PRAVACHOL (PRAVASTATIN SODIUM) 12/22/2009 5 - Intolerance Comments: Myalgias. Date Reviewed: 12/24/2020 Reviewed by: Curly Dennison [facility] - Fully Assessed Reason for Visit: Orders [501] Cmt: [facility] Prescriptions as of 02/02/2021 - insulin [...] to check blood pressure daily. 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 Telephone (DIANNEWAAARTI) FRANCISCO THOMAS ([id number]) 1940 M Date Time Provider Department 01/28/21 EMELYN GIRALDO During your visit today, we recorded the following information about you: Eleanor Ojeda Pss 01/28/2021 12:02 PM Signed Patient discharging from [facility] today and asking if Dr will follow for home Health orders starting tomorrow Nursing P T O T Speech Therapy Had a stroke w/left sided weakness Will need to know today if Dr will Follow Please call Caroline Brizuela APRN.CNP 01/28/2021 3:59 PM Signed Please call and give verbal orders as requested. Thanks Herlinda Carter Ma 01/29/2021 11:00 AM Signed Left message for Kayla with verbal to start home care as requested. Allergies As of Date: 01/28/2021 Noted Allergy Reaction CHOLESTYRAMINE 03/30/2012 14 - Other: See Comments Comments: caused low blood sugar MOBIC (MELOXICAM) 05/21/2009 7 - Swelling 9 - Itching PRAVACHOL (PRAVASTATIN SODIUM) 12/22/2009 5 - Intolerance Comments: Myalgias. Date Reviewed: 12/24/2020 Reviewed by: Curly Dennison RPh - Fully Assessed Reason for Visit: Patient Question [1887] Patient Update [5414] Prescriptions as of 01/29/2021 - insulin glargine [...] to check blood pressure daily. 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 Placed in provider's inbox for review. Route to MA Scanning Allergies As of Date: 01/06/2021 Noted Allergy Reaction CHOLESTYRAMINE 03/30/2012 14 - Other: See Comments Comments: caused low blood sugar MOBIC (MELOXICAM) 05/21/2009 7 - Swelling 9 - Itching PRAVACHOL (PRAVASTATIN SODIUM) 12/22/2009 5 - Intolerance Comments: Myalgias. Date Reviewed: 12/24/2020 Reviewed by: Curly Dennison [facility] - Fully Assessed Reason for Visit: Patient Update [3164] Cmt: [facility] HAND Prescriptions as of 01/06/2021 - insulin glargine [...] to check blood pressure daily. - Insulin [place], Disposable, (BD ULTRA-FINE SANAZ PEN NEEDLE) 32 gauge x 532 Use to inject insulin and Victoza, 2 [...] type 2, uncontrolled, w*02/19/2015 Encounter Status:Closed by KELVIN CONN on 01/06/21 [facility] Kris 01-02-2021 [place] Telephone (FPWADS) PEDRO LUISFRANCISCO ([id number]) 1940 M Date Time Provider Department 01/02/21 EMELYN GIRALDO During your visit today, we recorded the following information about you: Fide Hussein MA 01/02/2021 1:40 PM Signed Received MRI Brain without contrast from [facility] Imaging. Placed in provider's inbox for review. Route to ID for scanning Allergies As of Date: 01/02/2021 Noted Allergy Reaction CHOLESTYRAMINE 03/30/2012 14 - Other: See Comments Comments: caused low blood sugar MOBIC (MELOXICAM) 05/21/2009 7 - Swelling 9 - Itching PRAVACHOL (PRAVASTATIN SODIUM) 12/22/2009 5 - Intolerance Comments: Myalgias. Date Reviewed: 12/24/2020 Reviewed by: Curly Dennison [facility] - Fully Assessed Reason for Visit: MRI Report [[id number]] Cmt: [facility] Prescriptions as of 01/02/2021 - insulin [...] to check blood pressure daily. - Insulin [place], Disposable, (BD ULTRA-FINE SANAZ PEN NEEDLE) 32 gauge x 5/32 Use [...] blood sugar three times daily. - Lancets ([employer] MediaTOUCH ULTRASOFT LANCETS) lancets Test blood sugar four [...] type 2, uncontrolled, w*02/19/2015 Encounter Status:Closed by FIDE HUSSEIN on 01/02/21 [facility] Telephone ([employer]) FRANCISCO THOMAS ([id number]) 1940 M Date Time Provider Department 01/02/21 EMELYN GIRALDO [employer] During your visit today, we recorded the following information about you: Allergies As of Date: 01/02/2021 Noted Allergy Reaction CHOLESTYRAMINE 03/30/2012 14 - Other: See Comments Comments: caused low blood sugar MOBIC (MELOXICAM) 05/21/2009 7 - Swelling 9 - Itching PRAVACHOL (PRAVASTATIN SODIUM) 12/22/2009 5 - Intolerance Comments: Myalgias. Date Reviewed: 12/24/2020 Reviewed by: Curly Dennison RPh - Fully Assessed Reason for Visit: Film Cath/Echo [4519] Prescriptions as of 01/07/2021 - insulin glargine [...] to check blood pressure daily. - Insulin [place], Disposable, (BD ULTRA-FINE SANAZ PEN NEEDLE) 32 gauge x 5/32 Use to inject insulin and Victoza, 2 injections per day. - potassium chloride ER (KLOR-CON M20) 20 mEq tablet Take 1 tablet by mouth twice daily. - traMADol (ULTRAM) 50 mg tablet Take 50-100 mg by mouth every 6 hours as needed. - blood sugar diagnostic (J[employer] Interactive MediaTOUCH ULTRA TEST) test strip Use to check blood sugar three times daily. - Lancets ([employer] MediaTOUCH ULTRASOFT LANCETS) lancets Test blood sugar four [...] type 2, uncontrolled, w*02/19/2015 Encounter Status:Closed by FIDE HUSSEIN on 01/07/21 [facility] 12-31-2020 [place] Telephone (FPWADS) FRANCISCO THOMAS ([id number]) 1940 M Date Time Provider Department 12/31/20 EMELYN GIRALDO During your visit today, we recorded the following information about you: Kelvin Conn 12/31/2020 9:31 AM Signed Received update from [facility] ED. Placed in provider's inbox for review. Route to MA Scanning Allergies As of Date: 12/31/2020 Noted Allergy Reaction CHOLESTYRAMINE 03/30/2012 14 - Other: See Comments Comments: caused low blood sugar MOBIC (MELOXICAM) 05/21/2009 7 - Swelling 9 - Itching PRAVACHOL (PRAVASTATIN SODIUM) 12/22/2009 5 - Intolerance Comments: Myalgias. Date Reviewed: 12/24/2020 Reviewed by: Curly Dennison RPh - Fully Assessed Reason for Visit: Patient Update [1234] Cmt: [facility] ED Prescriptions as of 12/31/2020 - [...] to check blood pressure daily. - Insulin [place], Disposable, (BD ULTRA-FINE SANAZ PEN NEEDLE) 32 gauge x 5/32 Use [...] type 2, uncontrolled, w*02/19/2015 Encounter Status:Closed by KELVIN CONN on 12/31/20 [facility] CNOVon 12-24-2020 CNOV Office Visit (PHMEWO ) PEDROL UISFRANCISCO Jesus ([id number]) 1940 M Date Time Provider Department 12/24/20 1:30 PM CURLY DENNISON During your visit today, we recorded the following information about you: Pulse Blood pressure 70/minute 161/77 Curly Dennison RPh 01/01/2021 4:10 PM Signed Primary Care Pharmacy [...] 137 12/16 120 12/15 128 12/14 83 10 110 [...] are not present. Adherence: denies missed doses Pharmacy:?[facility] mail order? Rx coverage:?Medicare Affordability:?insulin and Victoza costly Diabetes supplies:?[employer] Organization System:?none ACTIVE PROBLEM LIST Chronic Pain [...] to check blood pressure daily. - Insulin [place], Disposable, (BD ULTRA-FINE SANAZ PEN NEEDLE) 32 gauge x 5/32 Use [...] daily. - Toni (more content not included)... Normal [facility] TAYLAOVon 11-27-2020 CNOV Office Visit (PHMEWO ) FRANCISCO THOMAS ([id number]) 1940 M Date Time Provider Department 11/27/20 2:30 PM DIONE CHANG During your visit today, we recorded the following information about you: Pulse Blood pressure 73/minute 137/61 Dione Chang [facility] 11/27/2020 3:15 PM Signed Patient consents to pharmacy collaborative practice agreement. [...] Pulse 11/26 129/68 82 11/21 131/71 83 11/18 129/73 89 6 150/72 66 11/16 147/74 66 9/ 140/85 71 9/2 157/76, 110/80 75 Preventative [...] are not present Adherence: denies missed doses Pharmacy:?[facility] mail order? Rx coverage:?Medicare Affordability:?insulin and Victoza costly Diabetes supplies:?[employer] Organization System:?none Past medical, family and social [...] Inject 30 Units subcutaneously every morning. Insulin [place], Disposable, (BD ULTRA-FINE SANAZ PEN NEEDLE) 32 gauge x 5/32 Use to inject insulin and Victoza, 2 injections per day. Lancets (more content not included)... Normal [facility] CNOVon 10-23-2020 CNOV Office Visit (PHMEWO ) FRANCISCO THOMAS ([id number]) 1940 M Date Time Provider Department 10/23/20 3:00 PM DIONE CHANG During your visit today, we recorded the following information about you: Pulse Blood pressure 77/minute 156/68 Dione Chang [facility] 10/23/2020 4:17 PM Signed Patient consents to pharmacy collaborative practice agreement. REASON FOR CONSULT: DM?and BP GOALS: A1c CONSULTING PROVIDER:?Dr.?Jeffery Giraldo Date of Consult:?01/30/19 ? Francisco Gonzalezvernell is a 80 year old male was last seen by PCP, Dr. Emelyn Giraldo MD on?06/24/2020. ? Patient is presenting today for f/up pharmacotherapy management appointment for diabetes. Patient is presenting today for?established?pharma cotherapy management appointment for diabetes and HTN. At last PCP appt, pt had self-stopped Victoza and increased Lantus dose, his BP was elevated and he was encouraged to complete labs.?Pt has followed with pharmacy in the past and here to re-establish care for DM and BP management. At PharmD visit on 6/16, BP was elevated so losartan was switched [...] Patient has moved amlodipine to [facility] and is not missing any doses. [...] not present Adherence: denies missed doses Pharmacy: [facility] order Rx coverage: Medicare Affordability: insulin and Victoza costly Diabetes supplies: [employer] Organization System: none ACTIVE PROBLEM LIST Chronic [...] Inject 30 Units subcutaneously every morning. Insulin [place], Disposable, (BD ULTRA-FINE SANAZ PEN NEEDLE) 32 gauge x 5/32 Use to inject insulin and Victoza, 2 injections per day. Lancets (ONETOUCH ULTRASOFT LANCETS) lancets Test blood sugar four times daily. Uncontrolled diabetes type 2 on insulin latanoprost (XA (more content not included)... Normal [facility] CNOVon 09-18-2020 CNOV Office Visit (PHMEWO ) FRANCISCO THOMAS ([id number]) 1940 M Date Time Provider Department 09/18/20 2:00 PM ULYSSES, DIONE PHMEWO During your visit today, we recorded the following information about you: Pulse Blood pressure 71/minute 142/68 Dione Chang, [facility] 09/18/2020 2:38 PM Signed Patient consents to pharmacy collaborative practice agreement. REASON FOR CONSULT: DM?and BP GOALS: A1c CONSULTING PROVIDER:?Dr.?Jeffery Giraldo Date of Consult:?01/30/19 ? Francisco Thomas [...] 08/30 185/94 80 186/93 83 186/91 77 08/29 140/71 72 131/69 68 131/67 72 Current [...] out of pocket; doesn't happen often Pharmacy: [facility] order Rx coverage: Medicare Affordability: insulin and Victoza costly Diabetes supplies: [employer] System: none ACTIVE PROBLEM LIST Chronic Pain [...] check blood pressure daily. blood sugar diagnostic ([employer] MediaTOUCH ULTRA TEST) test strip Use to check blood sugar three times daily. hydroCHLOROthiazide (HYDRODIURIL, ESIDRIX) 25 mg tablet Take 1 tablet by mouth once daily. insulin glargine (BASAGLAR KWIKPEN U-100 INSULIN) 100 unit/mL (3 mL) Inject 30 Units subcutaneously every morning. Insulin [place], Disposable, (BD ULTRA-FINE SANAZ PEN NEEDLE) 32 gauge x Use to inject insulin and Victoza, 2 injections per day. Lancets (S[employer]-Lab[employer]CH ULTRASOFT LANCETS) lancets Test blood sugar four [...] (DIOVAN) 320 mg table (more content not included)... Normal [facility] CNOVon 08-27-2020 CNOV Office Visit (PHMEWO ) PEDRO LUISFRANCISCO Jesus ([id number]) 1940 M Date Time Provider Department 08/27/20 11:30 AM CURLY DENNISON During your visit today, we recorded the following information about you: Pulse Blood pressure 66/minute 165/79 Curly Dennison RPh 09/11/2020 2:04 PM Signed Patient consents to pharmacy collaborative practice agreement. [...] 97 6/6 119 6/5 95 6/4 119 6/ 88 Hypoglycemia: denies ? Home readings: Date BP Pulse 08/23 156/77 129/75 71 72 08/22 166/83 69 08/20 170/88 168/85 69 69 08/19 180/88 168/88 170/86 69 69 69 Current [...] age ? On ASA:?No ? MEDICATIONS:?- ? Adherence:?denies?miss ed doses. ? Pharmacy:?[facility] order? Rx coverage:?Medicare ? Affordability:?insulin /victoza more costly? ? Diabetes supplies:?[employer]? ? Organization [...] to check blood pressure daily. - Insulin [place], Disposable, (BD ULTRA-FINE SANAZ PEN NEEDLE) 32 gauge x 5/32 Use [...] LABS Lab Results (more content not included)... [facility] (F[facility] FRANCISCO THOMAS ([id number]) 1940 M Date Time Provider Department 08/25/20 11:15 AM NE NURSE CHINEDU During your visit today, we recorded the following information about you: Pulse Blood pressure 72/minute 180/74 [...] pulse was same Referring Provider: EMELYN GIRALDO [[id number]] Allergies As of Date: 08/25/2020 Noted Allergy Reaction CHOLESTYRAMINE 03/30/2012 14 - Other: See Comments Comments: caused low blood sugar MOBIC (MELOXICAM) 05/21/2009 7 - Swelling 9 - Itching PRAVACHOL (PRAVASTATIN SODIUM) 12/22/2009 5 - Intolerance Comments: Myalgias. Date Reviewed: 08/25/2020 Reviewed by: Ivett Laboy LPN - Fully Assessed Visit Diagnosis:Hypertension , essential [I10] Prescriptions as of 08/25/2020 Sig: GERARDO BASILIO U-100 INSULI* Inject 28 Units subcutaneousl* HYDROCHLOROTHIAZIDE 25 MG TAB* Take 1 tablet [...] GAUGE* Use to inject insulin and Alfie* POTASSIUM CHLORIDE ER 20 MEQ * Take 1 tablet by mouth twice * TRAMADOL 50 MG TABLET Take 50-100 mg by mouth every* ONETOUCH ULTRA TEST STRIPS Use to check blood sugar thre* LANCETS Test blood sugar four times d* LATANOPROST 0.005 % EYE DROPS Use 1 Drop in both eyes daily* * THERAPEUTIC MULTIVITAMIN TABL* Take one(1) tablet daily. Problem List As Of Date 08/25/2020 Noted Resolved Chronic pain of right knee [M25.561, G89.29] 12/31/2005 MIXED HYPERLIPIDEMIA [E78.2] 12/31/2005 Essential hypertension [I10] 12/31/2005 Uncontrolled type 2 diabetes mellitus with micr*06/10/2009 Chronic bilateral low back pain with right-side*02/01/2012 Recurrent inguinal hernia [K40.91] 06/22/2012 DM (diabetes mellitus), type 2, uncontrolled, w*02/19/2015 Encounter Status:Closed by IVETT LABOY LPN on 08/25/20 [facility] 08-25-[address] [facility] Telephone (FAMWS) FRANCISCO THOMAS ([id number]) 1940 M Date Time Provider Department 08/25/20 EMELYN GIRALDO [facility] During your visit today, we recorded the following information about you: Ivett Laboy LPN 08/25/2020 11:27 [...] consider increase in meds. MD Curly Laird, [facility] 08/27/2020 12:13 PM Signed Patient seen in office for pharmacy visit today. Since BP was elevated, losartan was switched to Valsartan 320 mg daily. Will follow up for BP recheck on 09/18. If BP elevated at that time can consider switching HCTZ to chlorthalidone 25 mg daily or increasing amlodipine to 10 mg daily. Thanks, Curly Dennison, PharmD, BCACP Primary Care Clinical Pharmacist [facility] Emelyn Giraldo MD 08/27/2020 1:12 PM Signed Noted. Will watch for f/u bp checks. Emelyn Giraldo MD Allergies As of Date: 08/25/2020 Noted Allergy Reaction CHOLESTYRAMINE 03/30/2012 14 - Other: See Comments Comments: caused low blood sugar MOBIC (MELOXICAM) 05/21/2009 7 - Swelling 9 - Itching PRAVACHOL (PRAVASTATIN SODIUM) 12/22/2009 5 - Intolerance Comments: Myalgias. Date Reviewed: 08/25/2020 Reviewed by: Ivett Laboy LPN - Fully Assessed Reason for Visit: Allied Health Visit [5] Cmt: please review bp readings- elevated pettys Curly Prescriptions as of 08/25/2020 Sig: HYDROCHLOROTHIAZIDE 25 MG TAB* Take 1 tablet by mouth once d* METFORMIN ER 500 MG TABLET,EX* Take 2 tablets by mouth twice* X BASAGLAR KWIKPEN U-100 INSULI* Inject 28 Units subcutaneousl* AMLODIPINE 5 MG TABLET Take 1 tablet by mouth once d* X LOSARTAN 100 MG TABLET Take 1 tablet by mouth once d* BLOOD PRESSURE MONITOR KIT Use to check blood pressure d* PEN NEEDLE, DIABETIC 32 GAUGE* Use to inject insulin and Alfie* POTASSIUM CHLORIDE ER 20 MEQ * Take 1 tablet by mouth twice * TRAMADOL 50 MG TABLET Take 50-100 mg by mouth every* ONETOUCH ULTRA TEST STRIPS Use to check blood sugar thre* LANCETS Test blood sugar four times d* LATANOPROST 0.005 % EYE DROPS Use 1 Drop in both eyes daily* * THERAPEUTIC MULTIVITAMIN TABL* Take one(1) tablet daily. Problem List As Of Date 08/25/2020 Noted Resolved Chronic pain of right knee [M25.561, G89.29] 12/31/2005 MIXED HYPERLIPIDEMIA [E78.2] 12/31/2005 Essential hypertension [I10] 12/31/2005 Uncontrolled type 2 diabetes mellitus with micr*06/10/2009 Chronic bilateral low back pain with right-side*02/01/2012 Recurrent inguinal hernia [K40.91] 06/22/2012 DM (diabetes mellitus), type 2, uncontrolled, w*02/19/2015 Encounter Status:Closed by MILKA HENRIQUEZ MA on 08/28/20 Normal [facility] Albumin/Creat Ratioon 2020 Albumin Urine Random 133.3 mg/L Normal [facility] Comment on above: Performed By: #### L IPB, CMP, UACR, HBA1C ####[facility] [place], [place] [phone] Albumin/Creat Ratio 65 mg/g High <30 [facility] Comment on above: Result Comment: Adul t Male and Female Nephrotic Criteria: <30 mg/g is considered normal to mildly increased 30-300 mg/g is considered moderately increased >300 mg/g is considered severely increased KDIGO. (2013). KDIGO 2012 Clinical Practice Guideline for the Evaluation and Management of Chronic Kidney Disease. Official Journal of the International Society of Nephrology, 3(1), 1-150. Performed By: #### L IPB, CMP, UACR, HBA1C ####[facility] [address] [place], [place] [phone] Creatinine,Urine,Ran 205.5 mg/dL Normal 20-300 [facility] Comment on above: Performed By: #### L IPB, CMP, UACR, HBA1C ####[facility] [address] [place], [place] [phone] [facility] 06-24-2020 [facility] Office Visit (FPWADS ) FRANCISCO THOMAS ([id number]) 1940 M Date Time Provider Department 06/24/20 2:00 PM EMELYN GIRALDO FPWADS During your visit today, we recorded the following information about you: Temperature Pulse Blood pressure Weight [...] (E11.22, E11.65, N18.2, Z79.4) 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 Due [...] direction and in the presence of Butch Giraldo M.D. Electronically Signed: Eleazar Alamo. June 24, 2020 1:05 PM . Provider Attestation: Emelyn Howe MD, personally performed the services described [...] PM Signed Venipuncture performed to left antecubital. Number of tubes collected: 1 gold and 1 lavender. Referring Provider: SELF [200] Allergies As of Date: 06/24/2020 (more content not included)... Normal [facility] Comp Metabolic Panelon 06-24 Albumin [Mass/Vol] 4.3 g/dL Normal 3.9-4.9 [facility] Comment on above: Performed By: #### L IPB, CMP, UACR, HBA1C ####[facility] [address] [place], [place] [phone] ALP [Catalytic activity/Vol] 55 U/L Normal 38-113 [facility] Comment on above: Performed By: #### L IPB, CMP, UACR, HBA1C ####[facility] [place], [place] [phone] ALT [Catalytic activity/Vol] 16 U/L Normal 10-54 [facility] Comment on above: Performed By: #### L IPB, CMP, UACR, HBA1C ####[facility] [address] [place], [place] [phone] Anion gap [Moles/Vol] 12 mmol/L Normal 9-18 [facility] Comment on above: Performed By: #### L IPB, CMP, UACR, HBA1C ####[address] [phone] AST [Catalytic activity/Vol] 18 U/L Normal 14-40 [facility] Comment on above: Performed By: #### L IPB, CMP, UACR, HBA1C ####[address] [phone] Bilirubin [Mass/Vol] 0.3 mg/dL Normal 0.2-1.3 [facility] Comment on above: Performed By: #### L IPB, CMP, UACR, HBA1C ####[address] [phone] Calcium [Mass/Vol] 9.5 mg/dL Normal 8.5-10.2 [facility] Comment on above: Performed By: #### L IPB, CMP, UACR, HBA1C ####[address] [phone] Chloride [Moles/Vol] 100 mmol/L Normal 97-105 [facility] Comment on above: Performed By: #### L IPB, CMP, UACR, HBA1C ####[place] [address] [place], [place] [phone] CO2 [Moles/Vol] 31 mmol/L High 22-30 [facility] Comment on above: Performed By: #### L IPB, CMP, UACR, HBA1C ####[place] [address] [address] [place], [place] [phone] Creatinine [Mass/Vol] 1.09 mg/dL Normal 0.73-1.22 [facility] Comment on above: Performed By: #### L IPB, CMP, UACR, HBA1C ####[facility] [address] [place], [place] [phone] eGFR- Amer. >60 Normal [facility] Comment on above: Performed By: #### L IPB, CMP, UACR, HBA1C ####[facility] [place], [place] [phone] eGFR-All Other Races >60 Normal [facility] Comment on above: Result Comment: eGFR (Estimated GFR) Units of measure: mL/min/1.73 meters squared eGFR is derived from the reexpressed MDRD Study equation using the following parameters: serum creatinine, age, gender and race. The creatinine assay has been calibrated to be traceable to IDMS. An eGFR <60 mL/min/1.73m2 for >3 months is consistent with chronic kidney disease. Refer to KDOQI guidelines for clinical interpretation. In patients with unstable renal function, e.g. those with acute kidney injury, the eGFR may not accurately reflect actual GFR. Performed By: #### L IPB, CMP, UACR, HBA1C ####[facility] [place], [place] [phone] Glucose [Mass/Vol] 135 mg/dL High 74-99 [facility] Comment on above: Result Comment: The [place] Diabetes Association (ADA) provides guidance for cutoff values for fasting glucose and random glucose. The ADA defines fasting as no caloric intake for at least 8 hours. Fasting plasma glucose results between 100 to 125 mg/dL indicate increased risk for diabetes (prediabetes). Fasting plasma glucose results greater than or equal to 126 mg/dL meet the criteria for diagnosis of diabetes. In the absence of unequivocal hyperglycemia, results should be confirmed by repeat testing. In a patient with classic symptoms of hyperglycemia or hyperglycemic crisis, random plasma glucose results greater than or equal to 200 mg/dL meet the criteria for diagnosis of diabetes. Reference: Standards of Medical Care in Diabetes 2016, [place] Diabetes Association. Diabetes Care. 2016.39(Suppl 1). Performed By: #### L IPB, CMP, UACR, HBA1C ####[facility] [place], [place] [phone] Potassium [Moles/Vol] 4.7 mmol/L Normal 3.7-5.1 [facility] Comment on above: Performed By: #### L IPB, CMP, UACR, HBA1C ####[facility] [place], [place] [phone] Protein [Mass/Vol] 6.6 g/dL Normal 6.3-8.0 [facility] Comment on above: Performed By: #### L IPB, CMP, UACR, HBA1C ####[facility], [place] [phone] Sodium [Moles/Vol] 143 mmol/L Normal 136-144 [facility] Comment on above: Performed By: #### L IPB, CMP, UACR, HBA1C ####[address] [place], [place] [phone] Urea nitrogen [Mass/Vol] 22 mg/dL Normal 9-24 [facility] Comment on above: Performed By: #### L IPB, CMP, UACR, HBA1C ####[place] [address] [place], [place] [phone] Hemoglobin A1con 06-24-2020 Glucose [Mass/Vol] 146 mg/dL Normal [facility] Comment on above: Result Comment: eAG: (Estimated average glucose) is a calculated value from HgbA1c and is sales representative door to door of the average blood glucose level in the last 2-3 month period. Performed By: #### L IPB, CMP, UACR, HBA1C ####[place] [address] [address] [place], [place] [phone] HbA1c (Bld) [Mass fraction] 6.7 % High 4.3-5.6 [facility] Comment on above: Result Comment: [place] Diabetes Association guidelines indicate that patients with HgbA1c in the range 5.7-6.4% are at increased risk for development of diabetes, and intervention by lifestyle modification may be beneficial. HgbA1c greater or equal to 6.5% is considered diagnostic of diabetes. Performed By: #### L IPB, CMP, UACR, HBA1C ####[facility] [address], [place] [phone] [facility], [facility] Cholesterol [Mass/Vol] 205 mg/dL High <200 [facility] Comment on above: Result Comment: <200 mg/dL, Desirable 200-239 mg/dL, Borderline high >239 mg/dL, High Performed By: #### L IPB, CMP, UACR, HBA1C ####[facility], [place] [phone] Cholesterol in HDL [Mass/Vol] 38 mg/dL Low >39 [facility] Comment on above: Result Comment: 40-5 9 mg/dL, Acceptable >59 mg/dL, High: Negative risk factor for coronary heart disease <40 mg/dL, Low: Positive risk factor for coronary heart disease Performed By: #### L IPB, CMP, UACR, HBA1C ####[facility], [place] [phone] Cholesterol in LDL [Mass/Vol] 132 mg/dL High <100 [facility] Comment on above: Result Comment: <100 mg/dL, Optimal 100-129 mg/dL, Near optimal/above optimal 130-159 mg/dL, Borderline high 160-189 mg/dL, High >189 mg/dL, Very high Secondary prevention optimal LDL Cholesterol levels are recommended to be < 70 mg/dL Performed By: #### L IPB, CMP, UACR, HBA1C ####[facility] [address], [place] [phone] Fasting Time Unknown Normal [facility] Comment on above: Performed By: #### L IPB, CMP, UACR, HBA1C ####[facility], [place] [phone] LDL:HDL Ratio 3.47 High <2.54 [facility] Comment on above: Result Comment: Refe rence: 1. National Cholesterol Education Program ATP III Guideline At-A-Glance Quick Desk Reference: National Heart, Lung, and Blood [place]. National Institutes of Health. 2001: NIH Publication No. 01-3305. 2. An International Atherosclerosis Society position paper: global recommendations for the management of dyslipidemia: executive summary, Atherosclerosis. 2014: 232(2):410-413. Performed By: #### L IPB, CMP, UACR, HBA1C ####[place] [address] [place], [place] [phone] Non HDL Cholesterol 167 mg/dL High <130 [facility] Comment on above: Result Comment: <130 mg/dL, Optimal 130-159 mg/dL, Near optimal/above optimal 160-189 mg/dL, Borderline high 190-219 mg/dL, High >219 mg/dL, Very high Secondary prevention optimal non HDL Cholesterol levels are recommended to be < 100 mg/dL Performed By: #### L IPB, CMP, UACR, HBA1C ####[place] [phone] TC:HDL Ratio 5.39 High <5.10 [facility] Comment on above: Performed By: #### L IPB, CMP, UACR, HBA1C ####[place] [phone] Triglyceride [Mass/Vol] 177 mg/dL High <150 [facility] Comment on above: Result Comment: <150 mg/dL, Normal 150-199 mg/dL, Borderline high 200-499 mg/dL, High >499 mg/dL, Very high Performed By: #### L IPB, CMP, UACR, HBA1C ####[address] [phone] VLDL Cholesterol 35 mg/dL High <30 [facility] Comment on above: Performed By: #### L IPB, CMP, UACR, HBA1C ####[place] [id number], [place] [phone] OBSOLETEon 05-29-2020 OBSOLETE Refill (PHMEWO) FRANCISCO THOMAS ([id number]) 1940 M Date Time Provider Department 05/29/20 EMELYN GIRALDO During your visit today, we recorded the following information about you: Steve Boyer Ma 05/29/2020 3:00 [...] 05/29/2020 4:51 PM Signed The following approved medication requests have been transmitted electronically. Appt with Dr Bassam luna. Signed Prescriptions Disp Refills amLODIPine (NORVASC) 5 mg tablet 90 tablet 2 Sig: Take 1 tablet by mouth once daily. RAI: No Authorizing Provider: EMELYN GIRALDO MD Denise Swanson [facility] 06/03/2020 12:27 PM Signed Patient is scheduled on 06/24 with ppc Allergies As of Date: 05/29/2020 Noted Allergy Reaction CHOLESTYRAMINE 03/30/2012 14 - Other: See Comments Comments: caused low blood sugar MOBIC (MELOXICAM) 05/21/2009 7 - Swelling 9 - Itching PRAVACHOL (PRAVASTATIN SODIUM) 12/22/2009 5 - Intolerance Comments: Myalgias. Date Reviewed: 01/30/2019 Reviewed by: Rosy Valvered Ma - Fully Assessed Reason for Visit: [...] tablet daily. Problem List As Of Date 05/29/2020 Noted Resolved Chronic pain of right knee [M25.561, G89.29] 12/31/2005 MIXED HYPERLIPIDEMIA [E78.2] 12/31/2005 Essential hypertension [I10] 12/31/2005 Uncontrolled type 2 diabetes mellitus with micr*06/10/2009 Chronic bilateral low back pain with right-side*02/01/2012 Recurrent inguinal hernia [K40.91] 06/22/2012 DM (diabetes mellitus), type 2, uncontrolled, w*02/19/2015 Prescriptions ordered this encounter Disp Refills Start End AMLODIPINE 5 MG TABLET 90 t* 2 05/29/2020 Route: ORAL Sig: Take 1 tablet by mouth once daily. Medications Discontinued During This Encounter Prescriptions - amLODIPine (NORVASC) 5 mg tablet (Discontinued) Take 1 tablet by mouth once daily. Encounter Status:Closed by ROSY VALVERDE MA on 05/29/20 Normal [facility] XR KNEE 1 OR 2 VIEWS RIGHTon 03-08-2019 XR KNEE 1 OR 2 VIEWS RIGHT ORIGINAL XR KNEE 1 OR 2 VIEWS RIGHT CLINICAL STATEMENT: Status Post Arthroplasty. COMPARISON: None FINDINGS: There is a complete knee prosthesis. The components appear intact. There is minimal space between the tibial plateau and tibial component of the prosthesis on the medial side. Gas and fluid within the soft tissues is consistent with immediate postoperative state. Vascular calcifications are noted in the soft tissues. Surgical ayanna overlie the skin anteriorly. No acute fracture or dislocation is shown. IMPRESSION: Immediate postoperative changes. Interpreted By: Vida Rees MD Preliminary Report By: Vida Rees MD Electronically Signed By: Vida Rees MD Dictated Date: 03/07/2019 11:10:38 PM Prelim Date: 03/07/2019 11:10:38 PM Sign Date: 03/07/2019 11:11:33 PM Ordering Provider:Cortes Molina [facility] ([place]) .Auto Diffon 03-07-2019 Ammonia (P) [Mass/Vol] 1.10 10 3/mcL High 0.15-1.00 [facility] ([place]) Comment on above: Performed By: #### C BC, ADIFF, ANEU #### [place] [address] #### BMP, GFR #### [address] [address] Basophils (Bld) [#/Vol] 0.00 10 3/mcL Normal 0.00-0.19 [facility] ([place]) Comment on above: Performed By: #### C BC, ADIFF, ANEU #### [place] [address] #### BMP, GFR #### [address] [address] Basophils/100 WBC (Bld) 0.4 % Normal 0.0-2.5 A [facility] ([place]) Comment on above: Performed By: #### C BC, ADIFF, ANEU #### [place] [address] #### BMP, GFR #### [address] [address] Eosinophils (Bld) [#/Vol] 0.10 10 3/mcL Normal 0.00-0. 40 [facility] ([place]) Comment on above: Performed By: #### C BC, ADIFF, ANEU #### [place] [address] #### BMP, GFR #### [address] [address] Eosinophils/100 WBC (Bld) 0.6 % Normal 0.0-7.0 [facility] ([place]) Comment on above: Performed By: #### C BC, ADIFF, ANEU #### [address] [address] #### BMP, GFR #### [address] [address] Lymphocytes (Bld) [#/Vol] 1.70 10 3/mcL Normal 0.77-3. 85 [facility] ([place]) Comment on above: Performed By: #### C BC, ADIFF, ANEU #### [address] [address] #### BMP, GFR #### [address] [address] Lymphocytes/100 WBC (Bld) 15.8 % Normal 10.0-50.0 [facility] ([place]) Comment on above: Performed By: #### C BC, ADIFF, ANEU #### [address] [address] #### BMP, GFR #### [address] [address] Monocytes/100 WBC (Bld) 10.6 % Normal 1.7-13.0 A [facility] ([place]) Comment on above: Performed By: #### C BC, ADIFF, ANEU #### [address] [address] #### BMP, GFR #### [address] [address] Neutrophils/100 WBC (Bld) 72.6 % Normal 37.0-80.0 [facility] ([place]) Comment on above: Performed By: #### C BC, ADIFF, ANEU #### [address] [address] #### BMP, GFR #### [address] [address] .GFRon 03-07-2019 GFR 74 ml/min/1.73sqm Normal [facility] ([place]) Comment on above: Result Comment: GFR Population mean for , Non- Americans Ages 20-29 = 116 mL/min/1.73 sq.m. Ages 30-39 = 107 mL/min/1.73 sq.m. Ages 40-49 = 99 mL/min/1.73 sq.m. Ages 50-59 = 93 mL/min/1.73 sq.m. Ages 60-69 = 85 mL/min/1.73 sq.m. Ages 70+ = 75 mL/min/1.73 sq.m. Chronic Kidney Disease: Less than 60 mL/min/1.73 square meters End Stage Renal Disease: Less than 15 mL/min/1.73 square meters Performed By: #### C BCLUZ, ANEU #### [address] [address] GFR Non- 61 ml/min/1.73sqm Normal [facility] ([place]) Comment on above: Result Comment: GFR Population mean for , Non- Americans Ages 20-29 = 116 mL/min/1.73 sq.m. Ages 30-39 = 107 mL/min/1.73 sq.m. Ages 40-49 = 99 mL/min/1.73 sq.m. Ages 50-59 = 93 mL/min/1.73 sq.m. Ages 60-69 = 85 mL/min/1.73 sq.m. Ages 70+ = 75 mL/min/1.73 sq.m. Chronic Kidney Disease: Less than 60 mL/min/1.73 square meters End Stage Renal Disease: Less than 15 mL/min/1.73 square meters Performed By: #### C BCLUZ, ANEU #### [place] [address] [address] .NEUABSon 03-07-2019 Neutrophils (Bld) [#/Vol] 7.70 10 3/mcL High 2.85-6. 16 [facility] ([place]) Comment on above: Performed By: #### C BCLUZ, ANEU #### [address] [address] #### BMP, GFR #### [address] [address] BMPon 03-07-2019 Calcium [Mass/Vol] 8.8 mg/dL Normal 8.4-10.2 [facility] ([place]) Comment on above: Performed By: #### C BC, ADIFF, ANEU #### [address] [address] #### BMP, GFR #### [address] [address] Chloride [Moles/Vol] 102 mmol/L Normal 98-107 [facility] ([place]) Comment on above: Performed By: #### C BC, ADIFF, ANEU #### [address] [address] #### BMP, GFR #### [address] [address] CO2 [Moles/Vol] 33 mmol/L High 23-31 [facility] ([place]) Comment on above: Performed By: #### C BC, ADIFF, ANEU #### [place] [address] #### BMP, GFR #### [address] [address] Creatinine [Mass/Vol] 1.15 mg/dL Normal 0.70-1.30 Pending [facility] to [facility] ([place]) Comment on above: Performed By: #### C BC, ADIFF, ANEU #### [address] [address] #### BMP, GFR #### [address] [address] Electrolyte Balance 6.0 mEq/L Normal [facility] ([place]) Comment on above: Performed By: #### C BC, ADIFF, ANEU #### [place] [address] #### BMP, GFR #### [address] [address] Glucose [Mass/Vol] 120 mg/dL High 83-110 [facility] ([place]) Comment on above: Performed By: #### C BC, ADIFF, ANEU #### [place] [address] #### BMP, GFR #### [address] [address] Potassium [Moles/Vol] 4.0 mmol/L Normal 3.5-5.1 Pending [facility] to [facility] ([place]) Comment on above: Performed By: #### C BC, ADIFF, ANEU #### [address] [address] #### BMP, GFR #### [address] [address] Sodium [Moles/Vol] 141 mmol/L Normal 136-145 [facility] ([place]) Comment on above: Performed By: #### C BC, ADIFF, ANEU #### [address] [address] #### BMP, GFR #### [address] [address] Urea nitrogen [Mass/Vol] 24 mg/dL High 7-18 [facility] ([place]) Comment on above: Performed By: #### C BC, ADIFF, ANEU #### [address] [address] #### BMP, GFR #### [address] [address] Urea nitrogen/Creatinine [Mass ratio] 21 ratio Normal 7-27 [facility] ([place]) Comment on above: Performed By: #### C BC, ADIFF, ANEU #### [place] [address] #### BMP, GFR #### [address] [address] CBCon 03-07-2019 Erythrocyte distribution width (RBC) [Ratio] 14.4 % Normal 11.5-14.5 [facility] ([place]) Comment on above: Performed By: #### C BC, ADIFF, ANEU #### [address] [address] #### BMP, GFR #### [address] [address] Hematocrit (Bld) [Volume fraction] 37.4 % Low 42.0-52.0 [facility] ([place]) Comment on above: Performed By: #### C LUZ LARES, ANEU #### [address] [address] #### BMP, GFR #### [address] [address] Hemoglobin (Bld) [Mass/Vol] 12.4 G/dL Low 14.0-18.0 [facility] ([place]) Comment on above: Performed By: #### C LUZ LARES, ANEU #### [address] [address] #### BMP, GFR #### [address] [address] MCH (RBC) [Entitic mass] 30.0 pg Normal 27.0-31.2 [facility] ([place]) Comment on above: Performed By: #### C LUZ LARES, ANEU #### [place] [address] #### BMP, GFR #### [address] [address] MCHC (RBC) [Mass/Vol] 33.2 G/dL Normal 31.8-35.4 [facility] to [facility] ([place]) Comment on above: Performed By: #### LUZ SOTO, ANEU #### [place] [address] #### BMP, GFR #### [address] [address] MCV (RBC) [Entitic vol] 90.4 fL Normal 80.0-94.0 A [facility] ([place]) Comment on above: Performed By: #### LUZ SOTO, ANEU #### [place] [address] #### BMP, GFR #### [address] [address] Platelet mean volume (Bld) [Entitic vol] 9.0 fL Normal 7.4-10.4 [facility] ([place]) Comment on above: Performed By: #### C BC, PRIYAIFF, ANEU #### [place] [address] #### BMP, GFR #### [address] [address] Platelets (Bld) [#/Vol] 205 10 3/mcL Normal 130-400 [facility] ([place]) Comment on above: Performed By: #### C BC, ADIFF, ANEU #### [place] [address] #### BMP, GFR #### [address] [address] RBC (Bld) [#/Vol] 4.14 10 6/mcL Normal 4.04-6.13 [facility] ([place]) Comment on above: Performed By: #### C BCLUZ, ANEU #### [place] [address] #### BMP, GFR #### [address] [address] WBC (Bld) [#/Vol] 10.60 10 3/mcL Normal 4.60-10.80 P[facility] to [facility] ([place]) Comment on above: Performed By: #### C PRIYA LARESIFF, ANEU #### [place] [address] #### BMP, GFR #### [address] [address] .Auto Diffon 02-19-2019 Ammonia (P) [Mass/Vol] 0.80 10 3/mcL Normal 0.15-1.00 [facility] ([place]) Comment on above: Performed By: #### C BC ADIFF, ANEU #### [address] [address] Basophils (Bld) [#/Vol] 0.10 10 3/mcL Normal 0.00-0.19 [facility] ([place]) Comment on above: Performed By: #### C BC, ADIFF, ANEU #### [address] [address] Basophils/100 WBC (Bld) 0.7 % Normal 0.0-2.5 A [facility] ([place]) Comment on above: Performed By: #### C BCLUZ, ANEU #### [address] [address] Eosinophils (Bld) [#/Vol] 0.10 10 3/mcL Normal 0.00-0. 40 [facility] ([place]) Comment on above: Performed By: #### C BC, ADIFF, ANEU #### [address] [address] Eosinophils/100 WBC (Bld) 1.0 % Normal 0.0-7.0 [facility] ([place]) Comment on above: Performed By: #### C LUZ LARES, ANEU #### [address] [address] Lymphocytes (Bld) [#/Vol] 1.80 10 3/mcL Normal 0.77-3. 85 [facility] ([place]) Comment on above: Performed By: #### C ARNAUD, LUZ, ANEU #### [address] [address] Lymphocytes/100 WBC (Bld) 19.7 % Normal 10.0-50.0 [facility] ([place]) Comment on above: Performed By: #### C ARNAUD, ADIFF, ANEU #### [address] [address] Monocytes/100 WBC (Bld) 8.4 % Normal 1.7-13.0 A [facility] ([place]) Comment on above: Performed By: #### C BC, ADIFF, ANEU #### [address] [address] Neutrophils/100 WBC (Bld) 70.2 % Normal 37.0-80.0 [facility] ([place]) Comment on above: Performed By: #### C BC, ADIFF, ANEU #### [address] [address] .GFRon 02-19-2019 GFR 62 ml/min/1.73sqm Normal [facility] ([place]) Comment on above: Result Comment: GFR Population mean for , Non- Americans Ages 20-29 = 116 mL/min/1.73 sq.m. Ages 30-39 = 107 mL/min/1.73 sq.m. Ages 40-49 = 99 mL/min/1.73 sq.m. Ages 50-59 = 93 mL/min/1.73 sq.m. Ages 60-69 = 85 mL/min/1.73 sq.m. Ages 70+ = 75 mL/min/1.73 sq.m. Chronic Kidney Disease: Less than 60 mL/min/1.73 square meters End Stage Renal Disease: Less than 15 mL/min/1.73 square meters Performed By: #### B MP, GFR #### [address] [address] GFR Non- 51 ml/min/1.73sqm Normal [facility] ([place]) Comment on above: Result Comment: GFR Population mean for , Non- Americans Ages 20-29 = 116 mL/min/1.73 sq.m. Ages 30-39 = 107 mL/min/1.73 sq.m. Ages 40-49 = 99 mL/min/1.73 sq.m. Ages 50-59 = 93 mL/min/1.73 sq.m. Ages 60-69 = 85 mL/min/1.73 sq.m. Ages 70+ = 75 mL/min/1.73 sq.m. Chronic Kidney Disease: Less than 60 mL/min/1.73 square meters End Stage Renal Disease: Less than 15 mL/min/1.73 square meters Performed By: #### B MP, GFR #### [address] [address] .NEUABSon 02-19-2019 Neutrophils (Bld) [#/Vol] 6.30 10 3/mcL High 2.85-6. 16 [facility] ([place]) Comment on above: Performed By: #### C BC, LUZ, ANEU #### [place] [address] [address] BMPon 02-19-2019 Calcium [Mass/Vol] 9.3 mg/dL Normal 8.4-10.2 [facility] ([place]) Comment on above: Performed By: #### B MP, GFR #### [address] [address] Chloride [Moles/Vol] 101 mmol/L Normal 98-107 [facility] ([place]) Comment on above: Performed By: #### B MP, GFR #### [address] [address] CO2 [Moles/Vol] 32 mmol/L High 23-31 [facility] ([place]) Comment on above: Performed By: #### B MP, GFR #### [address] [address] Creatinine [Mass/Vol] 1.34 mg/dL High 0.70-1.30 Pending [facility] to [facility] ([place]) Comment on above: Performed By: #### B MP, GFR #### [address] [address] Electrolyte Balance 9.0 mEq/L Normal [facility] ([place]) Comment on above: Performed By: #### B MP, GFR #### [address] [address] Glucose [Mass/Vol] 187 mg/dL High 83-110 [facility] ([place]) Comment on above: Performed By: #### B MP, GFR #### [address] [address] Potassium [Moles/Vol] 4.3 mmol/L Normal 3.5-5.1 Pending [facility] to [facility] ([place]) Comment on above: Performed By: #### B MP, GFR #### [address] [address] Sodium [Moles/Vol] 142 mmol/L Normal 136-145 [facility] ([place]) Comment on above: Performed By: #### B MP, GFR #### [address] [address] Urea nitrogen [Mass/Vol] 30 mg/dL High 7-18 [facility] ([place]) Comment on above: Performed By: #### B MP, GFR #### [address] [address] Urea nitrogen/Creatinine [Mass ratio] 22 ratio Normal 7-27 [facility] ([place]) Comment on above: Performed By: #### B MP, GFR #### [address] [address] CBCon 02-19-2019 Erythrocyte distribution width (RBC) [Ratio] 14.7 % High 11.5-14.5 [facility] ([place]) Comment on above: Performed By: #### C LUZ LARES, ANEU #### [address] [address] Hematocrit (Bld) [Volume fraction] 42.9 % Normal 42.0-52.0 [facility] ([place]) Comment on above: Performed By: #### LUZ SOTO, ANEU #### [address] [address] Hemoglobin (Bld) [Mass/Vol] 14.2 G/dL Normal 14.0-18.0 [facility] ([place]) Comment on above: Performed By: #### C LUZ LARES, ANEU #### [address] [address] MCH (RBC) [Entitic mass] 30.2 pg Normal 27.0-31.2 [facility] ([place]) Comment on above: Performed By: #### LUZ SOTO, ANEU #### [address] [address] MCHC (RBC) [Mass/Vol] 33.2 G/dL Normal 31.8-35.4 Pending [facility] to [facility] ([place]) Comment on above: Performed By: #### LUZ SOTO, ANEU #### [address] [address] MCV (RBC) [Entitic vol] 91.1 fL Normal 80.0-94.0 A [facility] ([place]) Comment on above: Performed By: #### LUZ SOTO, ANEU #### [address] [address] Platelet mean volume (Bld) [Entitic vol] 9.3 fL Normal 7.4-10.4 [facility] ([place]) Comment on above: Performed By: #### C LUZ LARES, ANEU #### [place] [address] [address] Platelets (Bld) [#/Vol] 264 10 3/mcL Normal 130-400 [facility] ([place]) Comment on above: Performed By: #### C LUZ LARES, ANEU #### [place] [address] [address] RBC (Bld) [#/Vol] 4.71 10 6/mcL Normal 4.04-6.13 [facility] ([place]) Comment on above: Performed By: #### C LUZ LARES, ANEU #### [address] [address] WBC (Bld) [#/Vol] 8.90 10 3/mcL Normal 4.60-10.80 [facility] ([place]) Comment on above: Performed By: #### C LUZ LARES, ANEU #### [address] [address] [address] KNEE W/O CONTRAST RIGHTon 02-19-2019 CT KNEE W/O CONTRAST RIGHT ORIGINAL CT KNEE W/O CONTRAST RIGHT CLINICAL STATEMENT: UNILATERAL PRIMARY OSTEOARTHRITIS RIGHT KNEE COMPARISON: None FINDINGS: This exam was performed according to our departmental dose-optimization program which includes automated exposure control, adjustment of the mA and/or kVp according to patient size and/or use of iterative reconstruction technique where applicable. Survey images LEFT hip: Mild degenerative changes visualized. No aggressive osseous lesions seen. There is a fat-containing RIGHT inguinal hernia. Severe medial tibiofemoral cartilage loss noted. There is chondrocalcinosis. Prominent patellofemoral and lateral tibiofemoral compartment spurs seen. There is exaggerated lateral tilt of the patella. A moderate joint effusion visualized. There is significant atherosclerosis. Survey images of the ankle: There is a large os trigonum. No aggressive osseous lesion identified. IMPRESSION: 1. Severe degenerative changes of the RIGHT knee. Chondrocalcinosis 2. Moderate RIGHT knee joint effusion Interpreted By: Anil Burroughs MD Preliminary Report By: Anil Burroughs MD Electronically Signed By: Anil Burroughs MD Dictated Date: 02/19/2019 9:50:44 AM Prelim Date: 02/19/2019 9:50:44 AM Sign Date: 02/19/2019 9:53:36 AM Ordering Provider:Cortes Romero [facility] ([place]) COVID-19 virus antigen assay SARS-CoV-2 (COVID-19) Ag IA.rapid Ql (Resp) [facility] Work Phone: Culture, urine Bacteria identified Cx Nom (U) Culture exhibits no growth. [facility] Work Phone: Laboratory - Microbiology an d Antimicrobial susceptibility Bacteria identified Cx Nom (Bld) No growth in 5 days. [facility] Work Phone: Stool gastrointestinal hemog lobin detection by immunologic method Lower GI hemoglobin IA Ql (Stl) [facility] Work Phone: Vital Signs Date Time Vital Sign Value Performing Clinician Facility 08-23-2024 16:02-0400 Body temperature 97.2 [degF] Dr. Jennifer Watt MD Work Phone: [facility] 08-23-2024 16:02-0400 Diastolic blood pressure 69 mm[Hg] Dr. Jennifer Watt MD Work Phone: [facility] 08-23-2024 16:02-0400 Heart rate 65 /min Dr. Jennifer Watt MD Work Phone: [facility] 08-23-2024 16:02-0400 Respiratory rate 14 /min Dr. Jennifer Watt MD Work Phone: [facility] 08-23-2024 16:02-0400 SaO2% (BldA) [Mass fraction] 97 % Dr. Jennifer Watt MD Work Phone: [facility] 08-23-2024 16:02-0400 Systolic blood pressure 161 mm[Hg] Dr. Jennifer Watt MD Work Phone: [facility] 08-23-2024 13:47-0400 Body mass index (BMI) [Ratio] 24.3 kg/m2 Dr. Jennifer Watt MD Work Phone: [facility] 08-23-2024 13:47-0400 Body weight 81.[address] Jennifer Watt MD Work Phone: [facility] 08-23-2024 13:14-0400 Body height 182.[address] Jennifer Watt MD Work Phone: [facility] 08-14-2024 14:48-0400 Body height 182.[address] Jennifer Watt MD Work Phone: [facility] 08-14-2024 14:03-0400 Body mass index (BMI) [Ratio] 24.3 kg/m2 Dr. Jennifer Watt MD Work Phone: [facility] 08-14-2024 14:03-0400 Body weight 81.[address] Jennifer Watt MD Work Phone: [facility] 08-14-2024 14:03-0400 Diastolic blood pressure 51 mm[Hg] Dr. Jennifer Watt MD Work Phone: [facility] 08-14-2024 14:03-0400 Heart rate 49 /min Dr. Jennifer Watt MD Work Phone: [facility] 08-14-2024 14:03-0400 Respiratory rate 16 /min Dr. Jennifer Watt MD Work Phone: [facility] 08-14-2024 14:03-0400 Systolic blood pressure 133 mm[Hg] Dr. Jennifer Watt MD Work Phone: [facility] 07-03-2024 14:16-0400 Body temperature 98 [degF] Dr. Jennifer Watt MD Work Phone: [facility] 07-03-2024 14:16-0400 Diastolic blood pressure 62 mm[Hg] Dr. Jennifer Watt MD Work Phone: [facility] 07-03-2024 14:16-0400 Heart rate 64 /min Dr. Jennifer Watt MD Work Phone: [facility] 07-03-2024 14:16-0400 Respiratory rate 15 /min Dr. Jennifer Watt MD Work Phone: [facility] 07-03-2024 14:16-0400 SaO2% (BldA) [Mass fraction] 96 % Dr. Jennifer Watt MD Work Phone: [facility] 07-03-2024 14:16-0400 Systolic blood pressure 138 mm[Hg] Dr. Jennifer Watt MD Work Phone: [facility] 06-21-2024 14:07-0400 Body height 182.[address] Jennifer Watt MD Work Phone: [facility] 06-21-2024 14:07-0400 Body mass index (BMI) [Ratio] 23.7 kg/m2 Dr. Jennifer Watt MD Work Phone: [facility] 06-21-2024 14:07-0400 Body temperature 98.6 [degF] Dr. Jennifer Watt MD Work Phone: [facility] 06-21-2024 14:07-0400 Body weight 79.[address] Jennifer Watt MD Work Phone: [facility] 06-21-2024 14:07-0400 Diastolic blood pressure 60 mm[Hg] Dr. Jennifer Watt MD Work Phone: [facility] 06-21-2024 14:07-0400 Heart rate 54 /min Dr. Jennifer Watt MD Work Phone: [facility] 06-21-2024 14:07-0400 Respiratory rate 16 /min Dr. Jennifer Watt MD Work Phone: [facility] 06-21-2024 14:07-0400 SaO2% (BldA) [Mass fraction] 94 % Dr. Jennifer Watt MD Work Phone: [facility] 06-21-2024 14:07-0400 Systolic blood pressure 136 mm[Hg] Dr. Jennifer Watt MD Work Phone: [facility] 06-12-2024 11:46-0400 Body temperature 97 [degF] Dr. Jennifer Watt MD Work Phone: [facility] 06-12-2024 11:46-0400 Diastolic blood pressure 60 mm[Hg] Dr. Jennifer Watt MD Work Phone: [facility] 06-12-2024 11:46-0400 Heart rate 55 /min Dr. Jennifer Watt MD Work Phone: [facility] 06-12-2024 11:46-0400 Respiratory rate 18 /min Dr. Jennifer Watt MD Work Phone: [facility] 06-12-2024 11:46-0400 Systolic blood pressure 135 mm[Hg] Dr. Jennifer Watt MD Work Phone: [facility] 06-05-2024 10:59-0400 Body temperature 96.6 [degF] Dr. Jennifer Watt MD Work Phone: [facility] 06-05-2024 10:59-0400 Diastolic blood pressure 58 mm[Hg] Dr. Jennifer Watt MD Work Phone: [facility] 06-05-2024 10:59-0400 Heart rate 58 /min Dr. Jennifer Watt MD Work Phone: [facility] 06-05-2024 10:59-0400 Respiratory rate 14 /min Dr. Jennifer Watt MD Work Phone: [facility] 06-05-2024 10:59-0400 Systolic blood pressure 152 mm[Hg] Dr. Jennifer Watt MD Work Phone: [facility] 05-08-2024 11:35-0500 Body temperature 96.6 [degF] Dr. Jennifer Watt MD Work Phone: [facility] 05-08-2024 11:35-0500 Diastolic blood pressure 51 mm[Hg] Dr. Jennifer Watt MD Work Phone: [facility] 05-08-2024 11:35-0500 Heart rate 56 /min Dr. Jennifer Watt MD Work Phone: [facility] 05-08-2024 11:35-0500 Respiratory rate 16 /min Dr. Jennifer Watt MD Work Phone: [facility] 05-08-2024 11:35-0500 Systolic blood pressure 146 mm[Hg] Dr. Jennifer Watt MD Work Phone: [facility] 04-10-2024 11:19-0500 Body mass index (BMI) [Ratio] 23 kg/m2 Dr. Jennifer Watt MD Work Phone: [facility] 04-10-2024 11:19-0500 Body temperature 97.1 [degF] Dr. Jennifer Watt MD Work Phone: [facility] 04-10-2024 11:19-0500 Diastolic blood pressure 53 mm[Hg] Dr. Jennifer Watt MD Work Phone: [facility] 04-10-2024 11:19-0500 Heart rate 63 /min Dr. Jennifer Watt MD Work Phone: [facility] 04-10-2024 11:19-0500 Respiratory rate 18 /min Dr. Jennifer Watt MD Work Phone: [facility] 04-10-2024 11:19-0500 Systolic blood pressure 145 mm[Hg] Dr. Jennifer Watt MD Work Phone: [facility] 03-29-2024 14:07-0500 Body height 182.[address] Jennifer Watt MD Work Phone: [facility] 03-29-2024 14:07-0500 Body mass index (BMI) [Ratio] 23 kg/m2 Dr. Jennifer Watt MD Work Phone: [facility] 03-29-2024 14:07-0500 Body weight 77.[address] Jennifer Watt MD Work Phone: [facility] 03-29-2024 14:07-0500 Diastolic blood pressure 55 mm[Hg] Dr. Jennifer Watt MD Work Phone: [facility] 03-29-2024 14:07-0500 Heart rate 64 /min Dr. Jennifer Watt MD Work Phone: [facility] 03-29-2024 14:07-0500 Respiratory rate 18 /min Dr. Jennifer Watt MD Work Phone: [facility] 03-29-2024 14:07-0500 Systolic blood pressure 137 mm[Hg] Dr. Jennifer Watt MD Work Phone: [facility] 03-22-2024 14:04-0500 Body mass index (BMI) [Ratio] 23.4 kg/m2 Dr. Jennifer Watt MD Work Phone: [facility] 03-22-2024 14:04-0500 Body temperature 98.6 [degF] Dr. Jennifer Watt MD Work Phone: [facility] 03-22-2024 14:04-0500 Body weight 78.[address] Jennifer Watt MD Work Phone: [facility] 03-22-2024 14:04-0500 Diastolic blood pressure 66 mm[Hg] Dr. Jennifer Watt MD Work Phone: [facility] 03-22-2024 14:04-0500 Heart rate 60 /min Dr. Jennifer Watt MD Work Phone: [facility] 03-22-2024 14:04-0500 Respiratory rate 16 /min Dr. Jennifer Watt MD Work Phone: [facility] 03-22-2024 14:04-0500 SaO2% (BldA) [Mass fraction] 95 % Dr. Jennifer Watt MD Work Phone: [facility] 03-22-2024 14:04-0500 Systolic blood pressure 146 mm[Hg] Dr. Jennifer Watt MD Work Phone: [facility] 03-14-2024 00:42-0500 Body weight 77.[address] Jennifer Watt MD Work Phone: [facility] 03-09-2024 04:52-0500 Body temperature 98.5 [degF] Dr. Jennifer Watt MD Work Phone: [facility] 03-09-2024 04:52-0500 Diastolic blood pressure 54 mm[Hg] Dr. Jennifer Watt MD Work Phone: [facility] 03-09-2024 04:52-0500 Heart rate 70 /min Dr. Jennifer Watt MD Work Phone: [facility] 03-09-2024 04:52-0500 Respiratory rate 18 /min Dr. Jennifer Watt MD Work Phone: [facility] 03-09-2024 04:52-0500 SaO2% (BldA) [Mass fraction] 92 % Dr. Jennifer Watt MD Work Phone: [facility] 03-09-2024 04:52-0500 Systolic blood pressure 122 mm[Hg] Dr. Jennifer Watt MD Work Phone: [facility] 03-09-2024 02:37-0500 Body mass index (BMI) [Ratio] 24.2 kg/m2 Dr. Jennifer Watt MD Work Phone: [facility] 03-09-2024 02:37-0500 Body weight 80.[address] Jennifer Watt MD Work Phone: [facility] 03-08-2024 13:17-0500 Body temperature 98.6 [degF] Dr. Jennifer Watt MD Work Phone: [facility] 03-08-2024 13:17-0500 Diastolic blood pressure 58 mm[Hg] Dr. Jennifer Watt MD Work Phone: [facility] 03-08-2024 13:17-0500 Heart rate 78 /min Dr. Jennifer Watt MD Work Phone: [facility] 03-08-2024 13:17-0500 Respiratory rate 18 /min Dr. Jennifer Watt MD Work Phone: [facility] 03-08-2024 13:17-0500 SaO2% (BldA) [Mass fraction] 96 % Dr. Jennifer Watt MD Work Phone: [facility] 03-08-2024 13:17-0500 Systolic blood pressure 122 mm[Hg] Dr. Jennifer Watt MD Work Phone: [facility] 03-07-2024 16:57-0500 Inhaled oxygen flow rate 2 L/min Dr. Jennifer Watt MD Work Phone: [facility] 03-05-2024 09:12-0500 Body weight 78.[address] Jennifer Watt MD Work Phone: [facility] 03-05-2024 00:11-0500 Body mass index (BMI) [Ratio] 23.3 kg/m2 Dr. Jennifer Watt MD Work Phone: [facility] 02-28-2024 11:52-0500 Body mass index (BMI) [Ratio] 23 kg/m2 Dr. Jennifer Watt MD Work Phone: [facility] 02-28-2024 11:52-0500 Body temperature 99.7 [degF] Dr. Jennifer Watt MD Work Phone: [facility] 02-28-2024 11:52-0500 Diastolic blood pressure 65 mm[Hg] Dr. Jennifer Watt MD Work Phone: [facility] 02-28-2024 11:52-0500 Heart rate 79 /min Dr. Jennifer Watt MD Work Phone: [facility] 02-28-2024 11:52-0500 Respiratory rate 18 /min Dr. Jennifer Watt MD Work Phone: [facility] 02-28-2024 11:52-0500 Systolic blood pressure 137 mm[Hg] Dr. Jennifer Watt MD Work Phone: [facility] 02-12-2024 00:33-0500 Body weight 77.[address] Jennifer Watt MD Work Phone: [facility] 07-14-2023 09:27-0400 Inhaled oxygen flow rate 2 L/min Dr. Jennifer Watt Work Phone: [facility] 07-14-2023 08:55-0400 Body temperature 97.1 [degF] Dr. Jennifer Watt Work Phone: [facility] 07-14-2023 08:55-0400 Diastolic blood pressure 55 mm[Hg] Dr. Jennifer Watt Work Phone: [facility] 07-14-2023 08:55-0400 Heart rate 57 /min Dr. Jennifer Watt Work Phone: [facility] 07-14-2023 08:55-0400 Respiratory rate 14 /min Dr. Jennifer Watt Work Phone: [facility] 07-14-2023 08:55-0400 SaO2% (BldA) [Mass fraction] 96 % Dr. Jennifer Watt Work Phone: [facility] 07-14-2023 08:55-0400 Systolic blood pressure 149 mm[Hg] Dr. Jennifer Watt Work Phone: [facility] 07-14-2023 05:40-0400 Body mass index (BMI) [Ratio] 27.1 kg/m2 Dr. Jennifer Watt Work Phone: [facility] 07-14-2023 05:40-0400 Body weight 90.[address] Jennifer Watt Work Phone: [facility] 07-12-2023 16:33-0400 Body temperature 98.1 [degF] Dr. Jennifer Watt Work Phone: [facility] 07-12-2023 16:33-0400 Diastolic blood pressure 58 mm[Hg] Dr. Jennifer Watt Work Phone: [facility] 07-12-2023 16:33-0400 Heart rate 60 /min Dr. Jennifer Watt Work Phone: [facility] 07-12-2023 16:33-0400 Inhaled oxygen flow rate 2 L/min Dr. Jennifer Watt Work Phone: [facility] 07-12-2023 16:33-0400 Respiratory rate 16 /min Dr. Jennifer Watt Work Phone: [facility] 07-12-2023 16:33-0400 SaO2% (BldA) [Mass fraction] 94 % Dr. Jennifer Watt Work Phone: [facility] 07-12-2023 16:33-0400 Systolic blood pressure 136 mm[Hg] Dr. Jennifer Watt Work Phone: [facility] 07-12-2023 05:02-0400 Body mass index (BMI) [Ratio] 27.4 kg/m2 Dr. Jennifer Watt Work Phone: [facility] 07-12-2023 05:02-0400 Body weight 91.[address] Jennifer Watt Work Phone: [facility] 07-10-2023 13:38-0400 Body height 182.[address] Jennifer Watt Work Phone: [facility] 07-09-2023 05:24-0400 Body temperature 98 [degF] Dr. Jennifer Watt Work Phone: [facility] 07-09-2023 05:24-0400 Diastolic blood pressure 54 mm[Hg] Dr. Jennifer aWtt Work Phone: [facility] 07-09-2023 05:24-0400 Heart rate 65 /min Dr. Jennifer Watt Work Phone: [facility] 07-09-2023 05:24-0400 Respiratory rate 20 /min Dr. Jennifer Watt Work Phone: [facility] 07-09-2023 05:24-0400 SaO2% (BldA) [Mass fraction] 96 % Dr. Jennifer Watt Work Phone: [facility] 07-09-2023 05:24-0400 Systolic blood pressure 122 mm[Hg] Dr. Jennifer Watt Work Phone: [facility] 07-09-2023 04:48-0400 Inhaled oxygen flow rate 2 L/min Dr. Jennifer Watt Work Phone: [facility] 07-09-2023 03:32-0400 Body height 182.[address] Jennifer Watt Work Phone: [facility] 07-09-2023 03:32-0400 Body mass index (BMI) [Ratio] 28.3 kg/m2 Dr. Jennifer Watt Work Phone: [facility] 07-09-2023 03:32-0400 Body weight 94.[address] Jennifer Watt Work Phone: [facility] 06-16-2023 15:10-0400 Body temperature 97.6 [degF] Dr. Jennifer Watt Work Phone: [facility] 06-16-2023 15:10-0400 Diastolic blood pressure 51 mm[Hg] Dr. Jennifer Watt Work Phone: [facility] 06-16-2023 15:10-0400 Heart rate 62 /min Dr. Jennifer Watt Work Phone: [facility] 06-16-2023 15:10-0400 Respiratory rate 16 /min Dr. Jennifer Watt Work Phone: [facility] 06-16-2023 15:10-0400 SaO2% (BldA) [Mass fraction] 93 % Dr. Jennifer Watt Work Phone: [facility] 06-16-2023 15:10-0400 Systolic blood pressure 136 mm[Hg] Dr. Jennifer Watt Work Phone: [facility] 06-16-2023 12:52-0400 Body height 182.[address] Jennifer Watt Work Phone: [facility] 06-03-2023 14:12-0400 Body temperature 98.9 [degF] Dr. Jennifer Watt Work Phone: [facility] 06-03-2023 14:12-0400 Diastolic blood pressure 58 mm[Hg] Dr. Jennifer Watt Work Phone: [facility] 06-03-2023 14:12-0400 Heart rate 77 /min Dr. Jennifer Watt Work Phone: [facility] 06-03-2023 14:12-0400 Respiratory rate 16 /min Dr. Jennifer Watt Work Phone: [facility] 06-03-2023 14:12-0400 SaO2% (BldA) [Mass fraction] 91 % Dr. Jennifer Watt Work Phone: [facility] 06-03-2023 14:12-0400 Systolic blood pressure 172 mm[Hg] Dr. Jennifer Watt Work Phone: [facility] 06-03-2023 12:10-0400 Body height 182.[address] Jennifer Watt Work Phone: [facility] 06-03-2023 12:10-0400 Body mass index (BMI) [Ratio] 25.7 kg/m2 Dr. Jennifer Watt Work Phone: [facility] 06-03-2023 12:10-0400 Body weight 86.[address] Jennifer Watt Work Phone: [facility] 05-19-2023 15:35-0500 Diastolic blood pressure 65 mm[Hg] Dr. Jennifer Watt Work Phone: [facility] 05-19-2023 15:35-0500 Heart rate 58 /min Dr. Jennifer Watt Work Phone: [facility] 05-19-2023 15:35-0500 Systolic blood pressure 150 mm[Hg] Dr. Jennifer Watt Work Phone: [facility] 05-19-2023 13:21-0500 Body height 182.[address] Jennifer Watt Work Phone: [facility] 05-19-2023 13:21-0500 Body temperature 96.4 [degF] Dr. Jennifer Watt Work Phone: [facility] 05-19-2023 13:21-0500 Respiratory rate 16 /min Dr. Jennifer Watt Work Phone: [facility] 05-19-2023 13:21-0500 SaO2% (BldA) [Mass fraction] 96 % Dr. Jennifer Watt Work Phone: [facility] 03-29-2023 14:02-0500 Body mass index (BMI) [Ratio] 25.7 kg/m2 Dr. Jennifer Watt Work Phone: [facility] 03-29-2023 14:02-0500 Body temperature 98.2 [degF] Dr. Jennifer Watt Work Phone: [facility] 03-29-2023 14:02-0500 Body weight 86.[address] Jennifer Watt Work Phone: [facility] 03-29-2023 14:02-0500 Diastolic blood pressure 50 mm[Hg] Dr. Jennifer Watt Work Phone: [facility] 03-29-2023 14:02-0500 Heart rate 55 /min Dr. Jennifer Watt Work Phone: [facility] 03-29-2023 14:02-0500 Respiratory rate 17 /min Dr. Jennifer Watt Work Phone: [facility] 03-29-2023 14:02-0500 SaO2% (BldA) [Mass fraction] 95 % Dr. Jennifer Watt Work Phone: [facility] 03-29-2023 14:02-0500 Systolic blood pressure 128 mm[Hg] Dr. Jennifer Watt Work Phone: [facility] 02-24-2023 14:55-0500 Body mass index (BMI) [Ratio] 25.7 kg/m2 Dr. Jennifer Watt Work Phone: [facility] 02-24-2023 14:55-0500 Body temperature 98.5 [degF] Dr. Jennifer Watt Work Phone: [facility] 02-24-2023 14:55-0500 Body weight 86.[address] Jennifer Watt Work Phone: [facility] 02-24-2023 14:55-0500 Diastolic blood pressure 55 mm[Hg] Dr. Jennifer Watt Work Phone: [facility] 02-24-2023 14:55-0500 Heart rate 57 /min Dr. Jennifer Watt Work Phone: [facility] 02-24-2023 14:55-0500 SaO2% (BldA) [Mass fraction] 95 % Dr. Jennifer Watt Work Phone: [facility] 02-24-2023 14:55-0500 Systolic blood pressure 146 mm[Hg] Dr. Jennifer Watt Work Phone: [facility] 02-01-2023 14:34-0500 Body height 182.[address] Jennifer Watt Work Phone: [facility] 02-01-2023 14:34-0500 Body mass index (BMI) [Ratio] 25.7 kg/m2 Dr. Jennifer Watt Work Phone: [facility] 02-01-2023 14:34-0500 Body weight 86.[address] Jennifer Watt Work Phone: [facility] 02-01-2023 14:34-0500 Diastolic blood pressure 51 mm[Hg] Dr. Jennifer Watt Work Phone: [facility] 02-01-2023 14:34-0500 Heart rate 59 /min Dr. Jennifer Watt Work Phone: [facility] 02-01-2023 14:34-0500 Respiratory rate 16 /min Dr. Jennifer Watt Work Phone: [facility] 02-01-2023 14:34-0500 Systolic blood pressure 127 mm[Hg] Dr. Jennifer Watt Work Phone: [facility] 01-18-2023 15:39-0500 Body temperature 97.6 [degF] Dr. Jnenifer Watt Work Phone: [facility] 01-18-2023 15:39-0500 Diastolic blood pressure 52 mm[Hg] Dr. Jennifer Watt Work Phone: [facility] 01-18-2023 15:39-0500 Heart rate 64 /min Dr. Jennifer Watt Work Phone: [facility] 01-18-2023 15:39-0500 Respiratory rate 16 /min Dr. Jennifer Watt Work Phone: [facility] 01-18-2023 15:39-0500 SaO2% (BldA) [Mass fraction] 92 % Dr. Jennifer Watt Work Phone: [facility] 01-18-2023 15:39-0500 Systolic blood pressure 127 mm[Hg] Dr. Jennifer Watt Work Phone: [facility] 01-18-2023 12:56-0500 Body height 182.[address] Jennifer Watt Work Phone: [facility] 01-18-2023 12:56-0500 Body mass index (BMI) [Ratio] 25.7 kg/m2 Dr. Jennifer Watt Work Phone: [facility] 01-18-2023 12:56-0500 Body weight 86.[address] Jennifer Watt Work Phone: [facility] 01-13-2023 18:30-0400 Body temperature 98.3 [degF] Dr. Jennifer Watt Work Phone: [facility] 01-13-2023 18:30-0400 Diastolic blood pressure 60 mm[Hg] Dr. Jennifer Watt Work Phone: [facility] 01-13-2023 18:30-0400 Heart rate 61 /min Dr. Jennifer Watt Work Phone: [facility] 01-13-2023 18:30-0400 Respiratory rate 18 /min Dr. Jennifer Watt Work Phone: [facility] 01-13-2023 18:30-0400 SaO2% (BldA) [Mass fraction] 92 % Dr. Jennifer Watt Work Phone: [facility] 01-13-2023 18:30-0400 Systolic blood pressure 150 mm[Hg] Dr. Jennifer Watt Work Phone: [facility] 01-13-2023 09:58-0400 Inhaled oxygen flow rate 2 L/min Dr. Jennifer Watt Work Phone: [facility] 01-12-2023 12:25-0400 Body mass index (BMI) [Ratio] 26.2 kg/m2 Dr. Jennifer Watt Work Phone: [facility] 01-12-2023 12:25-0400 Body weight 87.[address] Jennifer Watt Work Phone: [facility] 01-04-2023 15:05-0400 Body temperature 97.3 [degF] Dr. Jennifer Watt Work Phone: [facility] 01-04-2023 15:05-0400 Diastolic blood pressure 50 mm[Hg] Dr. Jennifer Watt Work Phone: [facility] 01-04-2023 15:05-0400 Heart rate 55 /min Dr. Jennifer Watt Work Phone: [facility] 01-04-2023 15:05-0400 Respiratory rate 16 /min Dr. Jennifer Watt Work Phone: [facility] 01-04-2023 15:05-0400 SaO2% (BldA) [Mass fraction] 95 % Dr. Jennifer Watt Work Phone: [facility] 01-04-2023 15:05-0400 Systolic blood pressure 149 mm[Hg] Dr. Jennifer Watt Work Phone: [facility] 01-04-2023 12:57-0400 Body height 182.[address] Jennifer Watt Work Phone: [facility] 01-04-2023 12:57-0400 Body mass index (BMI) [Ratio] 25 kg/m2 Dr. Jennifer Watt Work Phone: [facility] 01-04-2023 12:57-0400 Body weight 83.[address] Jennifer Watt Work Phone: [facility] 12-21-2022 15:05-0400 Diastolic blood pressure 65 mm[Hg] Dr. Jennifer Watt Work Phone: [facility] 12-21-2022 15:05-0400 Heart rate 62 /min Dr. Jennifer Watt Work Phone: [facility] 12-21-2022 15:05-0400 Respiratory rate 16 /min Dr. Jennifer Watt Work Phone: [facility] 12-21-2022 15:05-0400 Systolic blood pressure 139 mm[Hg] Dr. Jennifer Watt Work Phone: [facility] 12-21-2022 12:27-0400 Body mass index (BMI) [Ratio] 24.4 kg/m2 Dr. Jennifer Watt Work Phone: [facility] 12-21-2022 12:27-0400 Body temperature 96.5 [degF] Dr. Jennifer Watt Work Phone: [facility] 12-21-2022 12:27-0400 Body weight 81.[address] Jennifer Watt Work Phone: [facility] 12-21-2022 12:27-0400 SaO2% (BldA) [Mass fraction] 96 % Dr. Jennifer Watt Work Phone: [facility] 11-25-2022 13:32-0400 Body height 182.[address] Jennifer Watt Work Phone: [facility] 11-25-2022 13:32-0400 Body temperature 98.4 [degF] Dr. Jennifer Watt Work Phone: [facility] 11-25-2022 13:32-0400 Diastolic blood pressure 57 mm[Hg] Dr. Jennifer Watt Work Phone: [facility] 11-25-2022 13:32-0400 Heart rate 55 /min Dr. Jennifer Watt Work Phone: [facility] 11-25-2022 13:32-0400 Respiratory rate 16 /min Dr. Jennifer Watt Work Phone: [facility] 11-25-2022 13:32-0400 SaO2% (BldA) [Mass fraction] 94 % Dr. Jennifer Watt Work Phone: [facility] 11-25-2022 13:32-0400 Systolic blood pressure 117 mm[Hg] Dr. Jennifer Watt Work Phone: [facility] 11-23-2022 14:26-0400 Body temperature 98.9 [degF] Dr. Jennifer Watt Work Phone: [facility] 11-23-2022 14:26-0400 Diastolic blood pressure 56 mm[Hg] Dr. Jennifer Watt Work Phone: [facility] 11-23-2022 14:26-0400 Heart rate 60 /min Dr. Jennifer Watt Work Phone: [facility] 11-23-2022 14:26-0400 Respiratory rate 16 /min Dr. Jennifer Watt Work Phone: [facility] 11-23-2022 14:26-0400 SaO2% (BldA) [Mass fraction] 95 % Dr. Jennifer Watt Work Phone: [facility] 11-23-2022 14:26-0400 Systolic blood pressure 128 mm[Hg] Dr. Jennifer Watt Work Phone: [facility] 11-12-2022 08:59-0400 Body temperature 96.9 [degF] Dr. Jennifer Watt Work Phone: [facility] 11-12-2022 08:59-0400 Diastolic blood pressure 54 mm[Hg] Dr. Jennifer Watt Work Phone: [facility] 11-12-2022 08:59-0400 Heart rate 53 /min Dr. Jennifer Watt Work Phone: [facility] 11-12-2022 08:59-0400 Respiratory rate 17 /min Dr. Jennifer Watt Work Phone: [facility] 11-12-2022 08:59-0400 SaO2% (BldA) [Mass fraction] 97 % Dr. Jennifer Watt Work Phone: [facility] 11-12-2022 08:59-0400 Systolic blood pressure 120 mm[Hg] Dr. Jennifer Watt Work Phone: [facility] 11-10-2022 14:37-0400 Body height 182.[address] Jennifer Watt Work Phone: [facility] 11-10-2022 14:37-0400 Body weight 87.[address] Jennifer Watt Work Phone: [facility] 11-09-2022 17:16-0400 Body mass index (BMI) [Ratio] 25.9 kg/m2 Dr. Jennifer Watt Work Phone: [facility] 11-03-2022 13:54-0400 Body temperature 96.4 [degF] Dr. Jennifer Watt Work Phone: [facility] 11-03-2022 13:54-0400 Diastolic blood pressure 50 mm[Hg] Dr. Jennifer Watt Work Phone: [facility] 11-03-2022 13:54-0400 Heart rate 53 /min Dr. Jennifer Watt Work Phone: [facility] 11-03-2022 13:54-0400 Respiratory rate 16 /min Dr. Jennifer Watt Work Phone: [facility] 11-03-2022 13:54-0400 SaO2% (BldA) [Mass fraction] 93 % Dr. Jennifer Watt Work Phone: [facility] 11-03-2022 13:54-0400 Systolic blood pressure 129 mm[Hg] Dr. Jennifer Watt Work Phone: [facility] 11-03-2022 03:15-0400 Inhaled oxygen flow rate 2 L/min Dr. Jennifer Watt Work Phone: [facility] 11-01-2022 10:38-0400 Body height 182.[address] Jennifer Watt Work Phone: [facility] 11-01-2022 10:38-0400 Body weight 83.[address] Jennifer Watt Work Phone: [facility] 11-01-2022 09:28-0400 Body temperature 97.6 [degF] Dr. Jennifer Watt Work Phone: [facility] 11-01-2022 09:28-0400 Diastolic blood pressure 55 mm[Hg] Dr. Jennifer Watt Work Phone: [facility] 11-01-2022 09:28-0400 Heart rate 53 /min Dr. Jennifer Watt Work Phone: [facility] 11-01-2022 09:28-0400 Inhaled oxygen flow rate 2 L/min Dr. Jennifer Watt Work Phone: [facility] 11-01-2022 09:28-0400 Respiratory rate 18 /min Dr. Jennifer Watt Work Phone: [facility] 11-01-2022 09:28-0400 SaO2% (BldA) [Mass fraction] 99 % Dr. Jennifer Watt Work Phone: [facility] 11-01-2022 09:28-0400 Systolic blood pressure 134 mm[Hg] Dr. Jennifer Watt Work Phone: [facility] 10-28-2022 23:30-0400 Body mass index (BMI) [Ratio] 24.8 kg/m2 Dr. Jennifer Watt Work Phone: [facility] 10-28-2022 22:56-0400 Body temperature 98.9 [degF] Dr. Jennifer Watt Work Phone: [facility] 10-28-2022 22:56-0400 Diastolic blood pressure 64 mm[Hg] Dr. Jennifer Watt Work Phone: [facility] 10-28-2022 22:56-0400 Heart rate 76 /min Dr. Jennifer Watt Work Phone: [facility] 10-28-2022 22:56-0400 Inhaled oxygen flow rate 2 L/min Dr. Jennifer Watt Work Phone: [facility] 10-28-2022 22:56-0400 Respiratory rate 19 /min Dr. Jennifer Watt Work Phone: [facility] 10-28-2022 22:56-0400 SaO2% (BldA) [Mass fraction] 96 % Dr. Jennifer Watt Work Phone: [facility] 10-28-2022 22:56-0400 Systolic blood pressure 145 mm[Hg] Dr. Jennifer Watt Work Phone: [facility] 10-28-2022 17:39-0400 Body height 182.[address] Jennifer Watt Work Phone: [facility] 10-28-2022 17:39-0400 Body mass index (BMI) [Ratio] 25.7 kg/m2 Dr. Jennifer Watt Work Phone: [facility] 10-28-2022 17:39-0400 Body weight 86.[address] Jennifer Watt Work Phone: [facility] 10-11-2022 13:02-0400 Body temperature 98.5 [degF] Dr. Jennifer Watt Work Phone: [facility] 10-11-2022 13:02-0400 Diastolic blood pressure 60 mm[Hg] Dr. Jennifer Watt Work Phone: [facility] 10-11-2022 13:02-0400 Heart rate 56 /min Dr. Jennifer Watt Work Phone: [facility] 10-11-2022 13:02-0400 Respiratory rate 16 /min Dr. Jennifer Watt Work Phone: [facility] 10-11-2022 13:02-0400 SaO2% (BldA) [Mass fraction] 94 % Dr. Jennifer Watt Work Phone: [facility] 10-11-2022 13:02-0400 Systolic blood pressure 124 mm[Hg] Dr. Jennifer Watt Work Phone: [facility] 09-01-2022 14:33-0400 Body height 182.[address] Jennifer Watt Work Phone: [facility] 09-01-2022 14:33-0400 Body temperature 98.4 [degF] Dr. Jennifer Watt Work Phone: [facility] 09-01-2022 14:33-0400 Diastolic blood pressure 39 mm[Hg] Dr. Jennifer Watt Work Phone: [facility] 09-01-2022 14:33-0400 Heart rate 46 /min Dr. Jennifer Watt Work Phone: [facility] 09-01-2022 14:33-0400 Respiratory rate 16 /min Dr. Jennifer Watt Work Phone: [facility] 09-01-2022 14:33-0400 SaO2% (BldA) [Mass fraction] 95 % Dr. Jennifer Watt Work Phone: [facility] 09-01-2022 14:33-0400 Systolic blood pressure 101 mm[Hg] Dr. Jennifer Watt Work Phone: [facility] 08-24-2022 06:22-0400 Body mass index (BMI) [Ratio] 25.2 kg/m2 Dr. Jennifer Watt Work Phone: [facility] 08-24-2022 06:22-0400 Body temperature 97 [degF] Dr. Jennifer Watt Work Phone: [facility] 08-24-2022 06:22-0400 Body weight 84.[address] Jennifer Watt Work Phone: [facility] 08-24-2022 06:22-0400 Diastolic blood pressure 58 mm[Hg] Dr. Jennifer Watt Work Phone: [facility] 08-24-2022 06:22-0400 Heart rate 96 /min Dr. Jennifer Watt Work Phone: [facility] 08-24-2022 06:22-0400 Respiratory rate 18 /min Dr. Jennifer Watt Work Phone: [facility] 08-24-2022 06:22-0400 SaO2% (BldA) [Mass fraction] 96 % Dr. Jennifer Watt Work Phone: [facility] 08-24-2022 06:22-0400 Systolic blood pressure 128 mm[Hg] Dr. Jennifer Watt Work Phone: [facility] 08-03-2022 15:13-0400 Diastolic blood pressure 61 mm[Hg] Dr. Jennifer Watt Work Phone: [facility] 08-03-2022 15:13-0400 Heart rate 47 /min Dr. Jennifer Watt Work Phone: [facility] 08-03-2022 15:13-0400 Respiratory rate 16 /min Dr. Jennifer Watt Work Phone: [facility] 08-03-2022 15:13-0400 Systolic blood pressure 156 mm[Hg] Dr. Jennifer Watt Work Phone: [facility] 08-03-2022 14:54-0400 Body mass index (BMI) [Ratio] 25.2 kg/m2 Dr. Jennifer Watt Work Phone: [facility] 08-03-2022 14:54-0400 Body weight 84.[address] Jennifer Watt Work Phone: [facility] 2022 15:24-0400 Diastolic blood pressure 50 mm[Hg] Dr. Jennifer Watt Work Phone: [facility] 2022 15:24-0400 Systolic blood pressure 136 mm[Hg] Dr. Jennifer Watt Work Phone: [facility] 2022 14:34-0400 Body height 182.[address] Jennifer Watt Work Phone: [facility] 2022 14:34-0400 Body temperature 98.2 [degF] Dr. Jennifer Watt Work Phone: [facility] 2022 14:34-0400 Heart rate 44 /min Dr. Jennifer Watt Work Phone: [facility] 2022 14:34-0400 Respiratory rate 17 /min Dr. Jennifer Watt Work Phone: [facility] 2022 14:34-0400 SaO2% (BldA) [Mass fraction] 97 % Dr. Jennifer Watt Work Phone: [facility] 05-13-2022 14:04-0500 Body temperature 97.1 [degF] Dr. Jennifer Watt Work Phone: [facility] 05-13-2022 14:04-0500 Body weight [address] Jennifer Watt Work Phone: [facility] 05-13-2022 14:04-0500 Diastolic blood pressure 66 mm[Hg] Dr. Jennifer Watt Work Phone: [facility] 05-13-2022 14:04-0500 Heart rate 56 /min Dr. Jennifer Watt Work Phone: [facility] 05-13-2022 14:04-0500 Respiratory rate 16 /min Dr. Jennifer Watt Work Phone: [facility] 05-13-2022 14:04-0500 SaO2% (BldA) [Mass fraction] 94 % Dr. Jennifer Watt Work Phone: [facility] 05-13-2022 14:04-0500 Systolic blood pressure 132 mm[Hg] Dr. Jennifer Watt Work Phone: [facility] 04-24-2022 14:10-0500 Body temperature 97.9 [degF] Dr. Jennifer Watt Work Phone: [facility] 04-24-2022 14:10-0500 Diastolic blood pressure 42 mm[Hg] Dr. Jennifer Watt Work Phone: [facility] 04-24-2022 14:10-0500 Heart rate 47 /min Dr. Jennifer Watt Work Phone: [facility] 04-24-2022 14:10-0500 Respiratory rate 16 /min Dr. Jennifer Watt Work Phone: [facility] 04-24-2022 14:10-0500 SaO2% (BldA) [Mass fraction] 93 % Dr. Jennifer Watt Work Phone: [facility] 04-24-2022 14:10-0500 Systolic blood pressure 116 mm[Hg] Dr. Jennifer Watt Work Phone: [facility] 04-24-2022 06:00-0500 Body weight 80.[address] Jennifer Watt Work Phone: [facility] 04-21-2022 11:38-0500 Body height 182.[address] Jennifer Watt Work Phone: [facility] 04-17-2022 07:30-0500 Inhaled oxygen flow rate 2 L/min Dr. Jennifer Watt Work Phone: [facility] 04-15-2022 13:14-0500 Inhaled oxygen concentration 93 % Dr. Jennifer Watt Work Phone: [facility] 04-12-2022 14:12-0500 Body mass index (BMI) [Ratio] 24.5 kg/m2 Dr. Jennifer Watt Work Phone: [facility] 04-12-2022 10:53-0500 Inhaled oxygen flow rate 3 L/min Dr. Jennifer Watt Work Phone: [facility] 04-12-2022 10:53-0500 SaO2% (BldA) [Mass fraction] 96 % Dr. Jennifer Watt Work Phone: [facility] 04-12-2022 08:51-0500 Body temperature 98.2 [degF] Dr. Jennifer Watt Work Phone: [facility] 04-12-2022 08:51-0500 Diastolic blood pressure 52 mm[Hg] Dr. Jennifer Watt Work Phone: [facility] 04-12-2022 08:51-0500 Heart rate 58 /min Dr. Jennifer Watt Work Phone: [facility] 04-12-2022 08:51-0500 Respiratory rate 20 /min Dr. Jennifer Watt Work Phone: [facility] 04-12-2022 08:51-0500 Systolic blood pressure 137 mm[Hg] Dr. Jennifer Watt Work Phone: [facility] 04-06-2022 22:10-0500 Inhaled oxygen concentration 4 % Dr. Jennifer Watt Work Phone: [facility] 04-06-2022 14:13-0500 Body height 183.[address] Jennifer Watt Work Phone: [facility] 04-06-2022 14:13-0500 Body weight 85.[address] Jennifer Watt Work Phone: [facility] 04-05-2022 18:26-0500 Body mass index (BMI) [Ratio] 25.6 kg/m2 Dr. Jennifer Watt Work Phone: [facility] 04-05-2022 16:29-0500 Body temperature 97.9 [degF] Dr. Jennifer Watt Work Phone: [facility] 04-05-2022 16:29-0500 Diastolic blood pressure 64 mm[Hg] Dr. Jennifer Watt Work Phone: [facility] 04-05-2022 16:29-0500 Heart rate 66 /min Dr. Jennifer Watt Work Phone: [facility] 04-05-2022 16:29-0500 Inhaled oxygen flow rate 2 L/min Dr. Jennifer Watt Work Phone: [facility] 04-05-2022 16:29-0500 Respiratory rate 19 /min Dr. Jennifer Watt Work Phone: [facility] 04-05-2022 16:29-0500 SaO2% (BldA) [Mass fraction] 95 % Dr. Jennifer Watt Work Phone: [facility] 04-05-2022 16:29-0500 Systolic blood pressure 159 mm[Hg] Dr. Jennifer Watt Work Phone: [facility] 04-05-2022 12:10-0500 Body height 182.[address] Jennifer Watt Work Phone: [facility] 04-05-2022 12:10-0500 Body mass index (BMI) [Ratio] 25.7 kg/m2 Dr. Jennifer Watt Work Phone: [facility] 04-05-2022 12:10-0500 Body weight 86.[address] Jennifer Watt Work Phone: [facility] 04-05-2022 10:59-0500 Body mass index (BMI) [Ratio] 25.7 kg/m2 Dr. Jennifer Watt Work Phone: [facility] 04-05-2022 10:59-0500 Body temperature 98.2 [degF] Dr. Jennifer Watt Work Phone: [facility] 04-05-2022 10:59-0500 Body weight 86.[address] Jennifer Watt Work Phone: [facility] 04-05-2022 10:59-0500 Diastolic blood pressure 58 mm[Hg] Dr. Jennifer Watt Work Phone: [facility] 04-05-2022 10:59-0500 Heart rate 60 /min Dr. Jennifer Watt Work Phone: [facility] 04-05-2022 10:59-0500 Respiratory rate 16 /min Dr. Jennifer Watt Work Phone: [facility] 04-05-2022 10:59-0500 SaO2% (BldA) [Mass fraction] 93 % Dr. Jennifer Watt Work Phone: [facility] 04-05-2022 10:59-0500 Systolic blood pressure 142 mm[Hg] Dr. Jennifer Watt Work Phone: [facility] 03-17-2022 13:39-0500 Body temperature 97.1 [degF] Dr. Jennifer Watt Work Phone: [facility] 03-17-2022 13:39-0500 Body weight 88.[address] Jennifer Watt Work Phone: [facility] 03-17-2022 13:39-0500 Diastolic blood pressure 62 mm[Hg] Dr. Jennifer Watt Work Phone: [facility] 03-17-2022 13:39-0500 Heart rate 54 /min Dr. Jennifer Watt Work Phone: [facility] 03-17-2022 13:39-0500 Respiratory rate 16 /min Dr. Jennifer Watt Work Phone: [facility] 03-17-2022 13:39-0500 SaO2% (BldA) [Mass fraction] 93 % Dr. Jennifer Watt Work Phone: [facility] 03-17-2022 13:39-0500 Systolic blood pressure 132 mm[Hg] Dr. Jennifer Watt Work Phone: [facility] 03-10-2022 11:45-0500 Body temperature 98.3 [degF] Dr. Jennifer Watt Work Phone: [facility] 03-10-2022 11:45-0500 Diastolic blood pressure 51 mm[Hg] Dr. Jennifer Watt Work Phone: [facility] 03-10-2022 11:45-0500 Heart rate 60 /min Dr. Jennifer Watt Work Phone: [facility] 03-10-2022 11:45-0500 Respiratory rate 18 /min Dr. Jennifer Watt Work Phone: [facility] 03-10-2022 11:45-0500 SaO2% (BldA) [Mass fraction] 95 % Dr. Jennifer Watt Work Phone: [facility] 03-10-2022 11:45-0500 Systolic blood pressure 130 mm[Hg] Dr. Jennifer Watt Work Phone: [facility] 03-09-2022 11:00-0500 Body weight 84.[address] Jennifer Watt Work Phone: [facility] 03-08-2022 14:42-0500 Body height 182.[address] Jennifer Watt Work Phone: [facility] Work Phone: 03-06-2022 16:00-0500 Inhaled oxygen flow rate 2 L/min Dr. Jennifer Watt Work Phone: [facility] 02-27-2022 15:42-0500 Body mass index (BMI) [Ratio] 25 kg/m2 Dr. Jennifer Watt Work Phone: [facility] 02-27-2022 14:29-0500 Respiratory rate 20 /min Dr. Jennifer Watt Work Phone: [facility] 02-27-2022 13:39-0500 Body temperature 97.9 [degF] Dr. Jennifer Watt Work Phone: [facility] 02-27-2022 13:39-0500 Diastolic blood pressure 52 mm[Hg] Dr. Jennifer Watt Work Phone: [facility] 02-27-2022 13:39-0500 Heart rate 54 /min Dr. Jennifer Watt Work Phone: [facility] 02-27-2022 13:39-0500 Inhaled oxygen flow rate 3 L/min Dr. Jennifer Watt Work Phone: [facility] 02-27-2022 13:39-0500 SaO2% (BldA) [Mass fraction] 97 % Dr. Jennifer Watt Work Phone: [facility] 02-27-2022 13:39-0500 Systolic blood pressure 134 mm[Hg] Dr. Jennifer Watt Work Phone: [facility] 02-27-2022 06:00-0500 Body weight 86.[address] Jennifer Watt Work Phone: [facility] 02-25-2022 04:07-0500 Inhaled oxygen concentration 30 % Dr. Jennifer Watt Work Phone: [facility] 02-24-2022 17:09-0500 Body mass index (BMI) [Ratio] 25.8 kg/m2 Dr. Jennifer Watt Work Phone: [facility] 02-20-2022 14:06-0500 Diastolic blood pressure 57 mm[Hg] Dr. Jennifer Watt Work Phone: [facility] 02-20-2022 14:06-0500 Heart rate 61 /min Dr. Jennifer Watt Work Phone: [facility] 02-20-2022 14:06-0500 Systolic blood pressure 149 mm[Hg] Dr. Jennifer Watt Work Phone: [facility] 02-20-2022 14:00-0500 Body temperature 98.7 [degF] Dr. Jnenifer Watt Work Phone: [facility] 02-20-2022 14:00-0500 Respiratory rate 23 /min Dr. Jennifer Watt Work Phone: [facility] 02-20-2022 14:00-0500 SaO2% (BldA) [Mass fraction] 95 % Dr. Jennifer Watt Work Phone: [facility] 02-20-2022 12:15-0500 Inhaled oxygen flow rate 2 L/min Dr. Jennifer Watt Work Phone: [facility] 02-20-2022 05:34-0500 Body weight 80.[address] Jennifer Watt Work Phone: [facility] 02-20-2022 05:11-0500 Inhaled oxygen concentration 30 % Dr. Jennifer Watt Work Phone: [facility] 02-17-2022 14:30-0500 Diastolic blood pressure 63 mm[Hg] Dr. Jennifer Watt Work Phone: [facility] Work Phone: 02-17-2022 14:30-0500 Heart rate 58 /min Dr. Jennifer Watt Work Phone: [facility] Work Phone: 02-17-2022 14:30-0500 Respiratory rate 20 /min Dr. Jennifer Watt Work Phone: [facility] Work Phone: 02-17-2022 14:30-0500 SaO2% (BldA) [Mass fraction] 95 % Dr. Jennifer Watt Work Phone: [facility] Work Phone: 02-17-2022 14:30-0500 Systolic blood pressure 176 mm[Hg] Dr. Jenniefr Watt Work Phone: [facility] Work Phone: 02-17-2022 12:00-0500 Body temperature 98.1 [degF] Dr. Jennifer Watt Work Phone: [facility] Work Phone: 02-17-2022 11:20-0500 Inhaled oxygen flow rate 4 L/min Dr. Jennifer Watt Work Phone: [facility] Work Phone: 02-17-2022 09:20-0500 Body height 175.[address] Jennifer Watt Work Phone: [facility] Work Phone: 02-17-2022 09:20-0500 Body weight 85.[address] Jennifer Watt Work Phone: [facility] Work Phone: 02-17-2022 05:38-0500 Inhaled oxygen concentration 30 % Dr. Jennifer Watt Work Phone: [facility] Work Phone: 02-16-2022 18:01-0500 Body mass index (BMI) [Ratio] 27.4 kg/m2 Dr. Jennifer Watt Work Phone: [facility] 02-11-2022 13:36-0500 Body mass index (BMI) [Ratio] 25.5 kg/m2 Dr. Jennifer Watt Work Phone: [facility] 02-11-2022 13:36-0500 Body temperature 96.8 [degF] Dr. Jennifer Watt Work Phone: [facility] 02-11-2022 13:36-0500 Body weight [address] Jennifer Watt Work Phone: [facility] 02-11-2022 13:36-0500 Diastolic blood pressure 68 mm[Hg] Dr. Jennifer Watt Work Phone: [facility] 02-11-2022 13:36-0500 Heart rate 53 /min Dr. Jennifer Watt Work Phone: [facility] 02-11-2022 13:36-0500 Respiratory rate 16 /min Dr. Jennifer Watt Work Phone: [facility] 02-11-2022 13:36-0500 SaO2% (BldA) [Mass fraction] 94 % Dr. Jennifer Watt Work Phone: [facility] 02-11-2022 13:36-0500 Systolic blood pressure 181 mm[Hg] Dr. Jennifer Watt Work Phone: [facility] 01-19-2022 14:44-0500 Body height 180.[address] eJnnifer Watt Work Phone: [facility] Work Phone: 01-19-2022 14:44-0500 Body temperature 98.4 [degF] Dr. Jennifer Watt Work Phone: [facility] 01-19-2022 14:44-0500 Diastolic blood pressure 50 mm[Hg] Dr. Jennifer Watt Work Phone: [facility] 01-19-2022 14:44-0500 Heart rate 48 /min Dr. Jennifer Watt Work Phone: [facility] 01-19-2022 14:44-0500 Respiratory rate 16 /min Dr. Jennifer Watt Work Phone: [facility] 01-19-2022 14:44-0500 SaO2% (BldA) [Mass fraction] 97 % Dr. Jennifer Watt Work Phone: [facility] 01-19-2022 14:44-0500 Systolic blood pressure 122 mm[Hg] Dr. Jennifer Watt Work Phone: [facility] 01-06-2022 14:36-0400 Body temperature 98.2 [degF] Dr. Jennifer Watt Work Phone: [facility] 01-06-2022 14:36-0400 Body weight 82.[address] Jennifer Watt Work Phone: [facility] 01-06-2022 14:36-0400 Diastolic blood pressure 63 mm[Hg] Dr. Jennifer Watt Work Phone: [facility] 01-06-2022 14:36-0400 Heart rate 50 /min Dr. Jennifer Watt Work Phone: [facility] 01-06-2022 14:36-0400 Respiratory rate 16 /min Dr. Jennifer Watt Work Phone: [facility] 01-06-2022 14:36-0400 SaO2% (BldA) [Mass fraction] 95 % Dr. Jennifer Watt Work Phone: [facility] 01-06-2022 14:36-0400 Systolic blood pressure 136 mm[Hg] Dr. Jennifer Watt Work Phone: [facility] 11-03-2021 13:35-0400 Body height 180.[address] Jennifer Watt Work Phone: [facility] Work Phone: 11-03-2021 13:35-0400 Body mass index (BMI) [Ratio] 23 kg/m2 Dr. Jennifer Watt Work Phone: [facility] Work Phone: 11-03-2021 13:35-0400 Body weight 74.[address] Jennifer Watt Work Phone: [facility] Work Phone: 11-03-2021 13:35-0400 Diastolic blood pressure 64 mm[Hg] Dr. Jennifer Watt Work Phone: [facility] Work Phone: 11-03-2021 13:35-0400 Heart rate 53 /min Dr. Jennifer Watt Work Phone: [facility] Work Phone: 11-03-2021 13:35-0400 Respiratory rate 18 /min Dr. Jennifer Watt Work Phone: [facility] Work Phone: 11-03-2021 13:35-0400 SaO2% (BldA) [Mass fraction] 98 % Dr. Jennifer Watt Work Phone: [facility] Work Phone: 11-03-2021 13:35-0400 Systolic blood pressure 126 mm[Hg] Dr. Jennifer Watt Work Phone: [facility] Work Phone: 09-16-2021 15:27-0400 Heart rate 48 /min Dr. Jennifer Watt Work Phone: [facility] Work Phone: 09-16-2021 15:26-0400 Body height 180.[address] Jennifer Watt Work Phone: [facility] Work Phone: 09-16-2021 15:26-0400 Body mass index (BMI) [Ratio] 23.3 kg/m2 Dr. Jennifer Watt Work Phone: [facility] Work Phone: 09-16-2021 15:26-0400 Body weight 75.[address] Jennifer Watt Work Phone: [facility] Work Phone: 09-16-2021 15:26-0400 Diastolic blood pressure 59 mm[Hg] Dr. Jennifer Watt Work Phone: [facility] Work Phone: 09-16-2021 15:26-0400 Respiratory rate 16 /min Dr. Jennifer Watt Work Phone: [facility] Work Phone: 09-16-2021 15:26-0400 SaO2% (BldA) [Mass fraction] 98 % Dr. Jennifer Watt Work Phone: [facility] Work Phone: 09-16-2021 15:26-0400 Systolic blood pressure 145 mm[Hg] Dr. Jennifer Watt Work Phone: [facility] Work Phone: 09-08-2021 16:00-0400 Diastolic blood pressure 54 mm[Hg] Dr. Jennifer Watt Work Phone: [facility] Work Phone: 09-08-2021 16:00-0400 Heart rate 44 /min Dr. Jennifer Watt Work Phone: [facility] Work Phone: 09-08-2021 16:00-0400 Systolic blood pressure 134 mm[Hg] Dr. Jennifer Watt Work Phone: [facility] Work Phone: 09-08-2021 15:46-0400 Body height 180.[address] Jennifer Watt Work Phone: [facility] Work Phone: 09-08-2021 15:46-0400 Body temperature 97.7 [degF] Dr. Jennifer Watt Work Phone: [facility] Work Phone: 09-08-2021 15:46-0400 Diastolic blood pressure 70 mm[Hg] Dr. Jennifer Watt Work Phone: [facility] Work Phone: 09-08-2021 15:46-0400 Heart rate 46 /min Dr. Jennifer Watt Work Phone: [facility] Work Phone: 09-08-2021 15:46-0400 Respiratory rate 16 /min Dr. Jennifer Watt Work Phone: [facility] Work Phone: 09-08-2021 15:46-0400 SaO2% (BldA) [Mass fraction] 98 % Dr. Jennifer Watt Work Phone: [facility] Work Phone: 09-08-2021 15:46-0400 Systolic blood pressure 120 mm[Hg] Dr. Jennifer Watt Work Phone: [facility] Work Phone: 08-05-2021 07:05-0400 Body height 180.[address] Jennifer Watt Work Phone: [facility] Work Phone: 08-05-2021 07:05-0400 Body weight 79.[address] Jennifer Watt Work Phone: [facility] Work Phone: 08-04-2021 09:28-0400 Body mass index (BMI) [Ratio] 24.4 kg/m2 Dr. Jennifer Watt Work Phone: [facility] Work Phone: 07-17-2021 11:19-0400 Diastolic blood pressure 76 mm[Hg] Dr. Jennifer Watt Work Phone: [facility] Work Phone: 07-17-2021 11:19-0400 Heart rate 52 /min Dr. Jennifer Watt Work Phone: [facility] Work Phone: 07-17-2021 11:19-0400 Respiratory rate 20 /min Dr. Jennifer Watt Work Phone: [facility] Work Phone: 07-17-2021 11:19-0400 Systolic blood pressure 181 mm[Hg] Dr. Jennifer Watt Work Phone: [facility] Work Phone: 07-17-2021 11:19-0400 Diastolic blood pressure 76 mm[Hg] Dr. Jennifer Watt Work Phone: [facility] Work Phone: 07-17-2021 11:19-0400 Heart rate 52 /min Dr. Jennifer Watt Work Phone: [facility] Work Phone: 07-17-2021 11:19-0400 Respiratory rate 20 /min Dr. Jennifer Watt Work Phone: [facility] Work Phone: 07-17-2021 11:19-0400 Systolic blood pressure 181 mm[Hg] Dr. Jennifer Watt Work Phone: [facility] Work Phone: 07-15-2021 15:26-0400 Diastolic blood pressure 60 mm[Hg] Dr. Jennifer Watt Work Phone: [facility] Work Phone: 07-15-2021 15:26-0400 Systolic blood pressure 140 mm[Hg] Dr. Jennifer Watt Work Phone: [facility] Work Phone: 07-15-2021 15:26-0400 Diastolic blood pressure 60 mm[Hg] Dr. Jennifer Watt Work Phone: [facility] Work Phone: 07-15-2021 15:26-0400 Systolic blood pressure 140 mm[Hg] Dr. Jennifer Watt Work Phone: [facility] Work Phone: 07-15-2021 14:49-0400 Body mass index (BMI) [Ratio] 22.2 kg/m2 Dr. Jennifer Watt Work Phone: [facility] Work Phone: 07-15-2021 14:49-0400 Body weight 74.[address] Jennifer Watt Work Phone: [facility] Work Phone: 07-15-2021 14:49-0400 Heart rate 52 /min Dr. Jennifer Watt Work Phone: [facility] Work Phone: 07-15-2021 14:49-0400 Respiratory rate 18 /min Dr. Jennifer Watt Work Phone: [facility] Work Phone: 07-15-2021 14:49-0400 SaO2% (BldA) [Mass fraction] 98 % Dr. Jennifer Watt Work Phone: [facility] Work Phone: 07-15-2021 14:49-0400 Body mass index (BMI) [Ratio] 22.2 kg/m2 Dr. Jennifer Watt Work Phone: [facility] Work Phone: 07-15-2021 14:49-0400 Body weight 74.[address] Jennifer Watt Work Phone: [facility] Work Phone: 07-15-2021 14:49-0400 Heart rate 52 /min Dr. Jennifer Watt Work Phone: [facility] Work Phone: 07-15-2021 14:49-0400 Respiratory rate 18 /min Dr. Jennifer Watt Work Phone: [facility] Work Phone: 07-15-2021 14:49-0400 SaO2% (BldA) [Mass fraction] 98 % Dr. Jennifer Watt Work Phone: [facility] Work Phone: 07-06-2021 10:35-0400 Body mass index (BMI) [Ratio] 23.7 kg/m2 Dr. Jennifer Watt Work Phone: [facility] Work Phone: 07-06-2021 10:35-0400 Body temperature 97.2 [degF] Dr. Jennifer Watt Work Phone: [facility] Work Phone: 07-06-2021 10:35-0400 Body weight 79.[address] Jennifer Watt Work Phone: [facility] Work Phone: 07-06-2021 10:35-0400 Diastolic blood pressure 76 mm[Hg] Dr. Jennifer Watt Work Phone: [facility] Work Phone: 07-06-2021 10:35-0400 Heart rate 44 /min Dr. Jennifer Watt Work Phone: [facility] Work Phone: 07-06-2021 10:35-0400 Respiratory rate 16 /min Dr. Jennifer Watt Work Phone: [facility] Work Phone: 07-06-2021 10:35-0400 SaO2% (BldA) [Mass fraction] 96 % Dr. Jennifer Watt Work Phone: [facility] Work Phone: 07-06-2021 10:35-0400 Systolic blood pressure 148 mm[Hg] Dr. Jennifer Watt Work Phone: [facility] Work Phone: 07-06-2021 10:35-0400 Body mass index (BMI) [Ratio] 23.7 kg/m2 Dr. Jennifer Watt Work Phone: [facility] Work Phone: 07-06-2021 10:35-0400 Body temperature 97.2 [degF] Dr. Jennifer Watt Work Phone: [facility] Work Phone: 07-06-2021 10:35-0400 Body weight 79.[address] Jennifer Watt Work Phone: [facility] Work Phone: 07-06-2021 10:35-0400 Diastolic blood pressure 76 mm[Hg] Dr. Jennifer Watt Work Phone: [facility] Work Phone: 07-06-2021 10:35-0400 Heart rate 44 /min Dr. Jennifer Watt Work Phone: [facility] Work Phone: 07-06-2021 10:35-0400 Respiratory rate 16 /min Dr. Jennifer Watt Work Phone: [facility] Work Phone: 07-06-2021 10:35-0400 SaO2% (BldA) [Mass fraction] 96 % Dr. Jennifer Watt Work Phone: [facility] Work Phone: 07-06-2021 10:35-0400 Systolic blood pressure 148 mm[Hg] Dr. Jennifer Watt Work Phone: [facility] Work Phone: 07-01-2021 13:14-0400 Body mass index (BMI) [Ratio] 23.7 kg/m2 Dr. Jennifer Watt Work Phone: [facility] Work Phone: 07-01-2021 13:14-0400 Body temperature 97.3 [degF] Dr. Jennifer Watt Work Phone: [facility] Work Phone: 07-01-2021 13:14-0400 Body weight 79.[address] Jennifer Watt Work Phone: [facility] Work Phone: 07-01-2021 13:14-0400 Diastolic blood pressure 70 mm[Hg] Dr. Jennifer Watt Work Phone: [facility] Work Phone: 07-01-2021 13:14-0400 Heart rate 48 /min Dr. Jennifer Watt Work Phone: [facility] Work Phone: 07-01-2021 13:14-0400 Respiratory rate 14 /min Dr. Jennifer Watt Work Phone: [facility] Work Phone: 07-01-2021 13:14-0400 SaO2% (BldA) [Mass fraction] 99 % Dr. Jennifer Watt Work Phone: [facility] Work Phone: 07-01-2021 13:14-0400 Systolic blood pressure 156 mm[Hg] Dr. Jennifer Watt Work Phone: [facility] Work Phone: 07-01-2021 13:14-0400 Body mass index (BMI) [Ratio] 23.7 kg/m2 Dr. Jennifer Watt Work Phone: [facility] Work Phone: 07-01-2021 13:14-0400 Body temperature 97.3 [degF] Dr. Jennifer Watt Work Phone: [facility] Work Phone: 07-01-2021 13:14-0400 Body weight 79.[address] Jennifer Watt Work Phone: [facility] Work Phone: 07-01-2021 13:14-0400 Diastolic blood pressure 70 mm[Hg] Dr. Jennifer Watt Work Phone: [facility] Work Phone: 07-01-2021 13:14-0400 Heart rate 48 /min Dr. Jennifer Watt Work Phone: [facility] Work Phone: 07-01-2021 13:14-0400 Respiratory rate 14 /min Dr. Jennifer Watt Work Phone: [facility] Work Phone: 07-01-2021 13:14-0400 SaO2% (BldA) [Mass fraction] 99 % Dr. Jennifer Watt Work Phone: [facility] Work Phone: 07-01-2021 13:14-0400 Systolic blood pressure 156 mm[Hg] Dr. Jennifer Watt Work Phone: [facility] Work Phone: 05-28-2021 13:00-0400 Body height 182.[address] Butch Giraldo Work Phone: [facility] Work Phone: 05-28-2021 13:00-0400 Body weight 79.[address] Butch Giraldo Work Phone: [facility] Work Phone: 05-28-2021 13:00-0400 Heart rate 48 /min Dr. Butch Giraldo Work Phone: [facility] Work Phone: 05-28-2021 13:00-0400 SaO2% (BldA) [Mass fraction] 98 % Dr. Butch Giraldo Work Phone: [facility] Work Phone: 05-22-2021 21:50-0500 Diastolic blood pressure 89 mm[Hg] Dr. Jennifer Watt Work Phone: [facility] Work Phone: 05-22-2021 21:50-0500 Heart rate 68 /min Dr. Jennifer Watt Work Phone: [facility] Work Phone: 05-22-2021 21:50-0500 Respiratory rate 15 /min Dr. Jennifer Watt Work Phone: [facility] Work Phone: 05-22-2021 21:50-0500 SaO2% (BldA) [Mass fraction] 97 % Dr. Jennifer Watt Work Phone: [facility] Work Phone: 05-22-2021 21:50-0500 Systolic blood pressure 175 mm[Hg] Dr. Jennifer Watt Work Phone: [facility] Work Phone: 05-22-2021 20:50-0500 Diastolic blood pressure 89 mm[Hg] Dr. Butch Giraldo Work Phone: [facility] Work Phone: 05-22-2021 20:50-0500 Heart rate 68 /min Dr. Butch Giraldo Work Phone: [facility] Work Phone: 05-22-2021 20:50-0500 Respiratory rate 15 /min Dr. Butch Giraldo Work Phone: [facility] Work Phone: 05-22-2021 20:50-0500 SaO2% (BldA) [Mass fraction] 97 % Dr. Butch Giraldo Work Phone: [facility] Work Phone: 05-22-2021 20:50-0500 Systolic blood pressure 175 mm[Hg] Dr. Bucth Giraldo Work Phone: [facility] Work Phone: 05-22-2021 19:02-0500 Body mass index (BMI) [Ratio] 23.6 kg/m2 Dr. Jennifer Wtat Work Phone: [facility] Work Phone: 05-22-2021 19:02-0500 Body temperature 98.6 [degF] Dr. Jennifer Watt Work Phone: [facility] Work Phone: 05-22-2021 19:02-0500 Body weight [address] Jennifer Watt Work Phone: [facility] Work Phone: 05-22-2021 18:02-0500 Body mass index (BMI) [Ratio] 23.6 kg/m2 Dr. Butch Giraldo Work Phone: [facility] Work Phone: 05-22-2021 18:02-0500 Body temperature 98.6 [degF] Dr. Butch Giraldo Work Phone: [facility] Work Phone: 05-22-2021 18:02-0500 Body weight [address] Butch Giraldo Work Phone: [facility] Work Phone: 05-18-2021 14:01-0500 Diastolic blood pressure 70 mm[Hg] Dr. Jennifer Watt Work Phone: [facility] Work Phone: 05-18-2021 14:01-0500 Heart rate 56 /min Dr. Jennifer Watt Work Phone: [facility] Work Phone: 05-18-2021 14:01-0500 Respiratory rate 18 /min Dr. Jennifer Watt Work Phone: [facility] Work Phone: 05-18-2021 14:01-0500 SaO2% (BldA) [Mass fraction] 98 % Dr. Jennifer Watt Work Phone: [facility] Work Phone: 05-18-2021 14:01-0500 Systolic blood pressure 168 mm[Hg] Dr. Jennifer Watt Work Phone: [facility] Work Phone: 05-18-2021 13:01-0500 Diastolic blood pressure 70 mm[Hg] Dr. Butch Giraldo Work Phone: [facility] Work Phone: 05-18-2021 13:01-0500 Heart rate 56 /min Dr. Butch Giraldo Work Phone: [facility] Work Phone: 05-18-2021 13:01-0500 Respiratory rate 18 /min Dr. Butch Giraldo Work Phone: [facility] Work Phone: 05-18-2021 13:01-0500 SaO2% (BldA) [Mass fraction] 98 % Dr. Butch Giraldo Work Phone: [facility] Work Phone: 05-18-2021 13:01-0500 Systolic blood pressure 168 mm[Hg] Dr. Butch Giraldo Work Phone: [facility] Work Phone: 05-13-2021 11:37-0500 Body mass index (BMI) [Ratio] 25 kg/m2 Dr. Butch Giraldo Work Phone: [facility] Work Phone: 05-13-2021 11:37-0500 Body weight 83.[address] Butch Giraldo Work Phone: [facility] Work Phone: 05-13-2021 11:37-0500 Diastolic blood pressure 63 mm[Hg] Dr. Butch Giraldo Work Phone: [facility] Work Phone: 05-13-2021 11:37-0500 Heart rate 48 /min Dr. Butch Giraldo Work Phone: [facility] Work Phone: 05-13-2021 11:37-0500 Respiratory rate 16 /min Dr. Butch Giraldo Work Phone: [facility] Work Phone: 05-13-2021 11:37-0500 SaO2% (BldA) [Mass fraction] 98 % Dr. Butch Giraldo Work Phone: [facility] Work Phone: 05-13-2021 11:37-0500 Systolic blood pressure 146 mm[Hg] Dr. Butch Giraldo Work Phone: [facility] Work Phone: 05-02-2021 14:06-0500 Diastolic blood pressure 56 mm[Hg] Dr. Butch Giraldo Work Phone: [facility] Work Phone: 05-02-2021 14:06-0500 Heart rate 45 /min Dr. Butch Giraldo Work Phone: [facility] Work Phone: 05-02-2021 14:06-0500 Respiratory rate 18 /min Dr. Butch Giraldo Work Phone: [facility] Work Phone: 05-02-2021 14:06-0500 SaO2% (BldA) [Mass fraction] 98 % Dr. Butch Giraldo Work Phone: [facility] Work Phone: 05-02-2021 14:06-0500 Systolic blood pressure 150 mm[Hg] Dr. Butch Giraldo Work Phone: [facility] Work Phone: 05-02-2021 13:06-0500 Body mass index (BMI) [Ratio] 23.7 kg/m2 Dr. Butch Giraldo Work Phone: [facility] Work Phone: 05-02-2021 13:06-0500 Body temperature 97.2 [degF] Dr. Butch Giraldo Work Phone: [facility] Work Phone: 05-02-2021 13:06-0500 Body weight 79.[address] Butch Giraldo Work Phone: [facility] Work Phone: 05-01-2021 16:10-0500 Diastolic blood pressure 73 mm[Hg] Dr. Butch Giraldo Work Phone: [facility] Work Phone: 05-01-2021 16:10-0500 Heart rate 49 /min Dr. Butch Giraldo Work Phone: [facility] Work Phone: 05-01-2021 16:10-0500 SaO2% (BldA) [Mass fraction] 96 % Dr. Butch Giraldo Work Phone: [facility] Work Phone: 05-01-2021 16:10-0500 Systolic blood pressure 187 mm[Hg] Dr. Butch Giraldo Work Phone: [facility] Work Phone: 05-01-2021 15:00-0500 Respiratory rate 13 /min Dr. Butch Giraldo Work Phone: [facility] Work Phone: 05-01-2021 12:29-0500 Body mass index (BMI) [Ratio] 23.8 kg/m2 Dr. Butch Giraldo Work Phone: [facility] Work Phone: 05-01-2021 12:29-0500 Body temperature 97.2 [degF] Dr. Butch Giraldo Work Phone: [facility] Work Phone: 05-01-2021 12:29-0500 Body weight 79.[address] Butch Giraldo Work Phone: [facility] Work Phone: 04-24-2021 15:46-0500 Diastolic blood pressure 87 mm[Hg] Dr. Butch Giraldo Work Phone: [facility] Work Phone: 04-24-2021 15:46-0500 Heart rate 72 /min Dr. Butch Giraldo Work Phone: [facility] Work Phone: 04-24-2021 15:46-0500 Respiratory rate 15 /min Dr. Butch Giraldo Work Phone: [facility] Work Phone: 04-24-2021 15:46-0500 SaO2% (BldA) [Mass fraction] 95 % Dr. Butch Giraldo Work Phone: [facility] Work Phone: 04-24-2021 15:46-0500 Systolic blood pressure 146 mm[Hg] Dr. Butch Giraldo Work Phone: [facility] Work Phone: 04-24-2021 11:20-0500 Body mass index (BMI) [Ratio] 24.4 kg/m2 Dr. Butch Giraldo Work Phone: [facility] Work Phone: 04-24-2021 11:20-0500 Body temperature 97 [degF] Dr. Butch Giraldo Work Phone: [facility] Work Phone: 04-24-2021 11:20-0500 Body weight 81.[address] Butch Giraldo Work Phone: [facility] Work Phone: 04-24-2021 10:34-0500 Diastolic blood pressure 86 mm[Hg] Dr. Butch Giraldo Work Phone: [facility] Work Phone: 04-24-2021 10:34-0500 Heart rate 52 /min Dr. Butch Giraldo Work Phone: [facility] Work Phone: 04-24-2021 10:34-0500 Respiratory rate 16 /min Dr. Butch Giraldo Work Phone: [facility] Work Phone: 04-24-2021 10:34-0500 SaO2% (BldA) [Mass fraction] 96 % Dr. Butch Giraldo Work Phone: [facility] Work Phone: 04-24-2021 10:34-0500 Systolic blood pressure 198 mm[Hg] Dr. Butch Giraldo Work Phone: [facility] Work Phone: 04-21-2021 15:00-0500 Diastolic blood pressure 82 mm[Hg] Dr. Butch Giraldo Work Phone: [facility] Work Phone: 04-21-2021 15:00-0500 Heart rate 55 /min Dr. Butch Giraldo Work Phone: [facility] Work Phone: 04-21-2021 15:00-0500 Systolic blood pressure 140 mm[Hg] Dr. Butch Giraldo Work Phone: [facility] Work Phone: 04-20-2021 13:18-0500 Body mass index (BMI) [Ratio] 23.7 kg/m2 Dr. Butch Giraldo Work Phone: [facility] Work Phone: 04-20-2021 13:18-0500 Body temperature 97.4 [degF] Dr. Butch Giraldo Work Phone: [facility] Work Phone: 04-20-2021 13:18-0500 Body weight 79.[address] Butch Giraldo Work Phone: [facility] Work Phone: 04-20-2021 13:18-0500 Diastolic blood pressure 72 mm[Hg] Dr. Butch Giraldo Work Phone: [facility] Work Phone: 04-20-2021 13:18-0500 Heart rate 52 /min Dr. Butch Giraldo Work Phone: [facility] Work Phone: 04-20-2021 13:18-0500 Respiratory rate 16 /min Dr. Butch Giraldo Work Phone: [facility] Work Phone: 04-20-2021 13:18-0500 SaO2% (BldA) [Mass fraction] 97 % Dr. Butch Giraldo Work Phone: [facility] Work Phone: 04-20-2021 13:18-0500 Systolic blood pressure 177 mm[Hg] Dr. Butch Giraldo Work Phone: [facility] Work Phone: 04-06-2021 12:04-0500 Body mass index (BMI) [Ratio] 23.4 kg/m2 Dr. Butch Giraldo Work Phone: [facility] Work Phone: 04-06-2021 12:04-0500 Body temperature 97.4 [degF] Dr. Butch Giraldo Work Phone: [facility] Work Phone: 04-06-2021 12:04-0500 Body weight 78.[address] Butch Giraldo Work Phone: [facility] Work Phone: 04-06-2021 12:04-0500 Diastolic blood pressure 76 mm[Hg] Dr. Butch Giraldo Work Phone: [facility] Work Phone: 04-06-2021 12:04-0500 Heart rate 58 /min Dr. Butch Giraldo Work Phone: [facility] Work Phone: 04-06-2021 12:04-0500 Respiratory rate 16 /min Dr. Butch Giraldo Work Phone: [facility] Work Phone: 04-06-2021 12:04-0500 SaO2% (BldA) [Mass fraction] 99 % Dr. Butch Giraldo Work Phone: [facility] Work Phone: 04-06-2021 12:04-0500 Systolic blood pressure 142 mm[Hg] Dr. Butch Giraldo Work Phone: [facility] Work Phone: 03-09-2021 11:44-0500 Body mass index (BMI) [Ratio] 23.7 kg/m2 Dr. Butch Giraldo Work Phone: [facility] Work Phone: 03-09-2021 11:44-0500 Body temperature 98.4 [degF] Dr. Butch Giraldo Work Phone: [facility] Work Phone: 03-09-2021 11:44-0500 Body weight 79.[address] Butch Giraldo Work Phone: [facility] Work Phone: 03-09-2021 11:44-0500 Diastolic blood pressure 67 mm[Hg] Dr. Butch Giraldo Work Phone: [facility] Work Phone: 03-09-2021 11:44-0500 Heart rate 50 /min Dr. Butch Giraldo Work Phone: [facility] Work Phone: 03-09-2021 11:44-0500 Respiratory rate 16 /min Dr. Butch Giraldo Work Phone: [facility] Work Phone: 03-09-2021 11:44-0500 SaO2% (BldA) [Mass fraction] 95 % Dr. Butch Giraldo Work Phone: [facility] Work Phone: 03-09-2021 11:44-0500 Systolic blood pressure 145 mm[Hg] Dr. Butch Giraldo Work Phone: [facility] Work Phone: 02-16-2021 08:13-0500 Body temperature 96.5 [degF] Dr. Butch Giraldo Work Phone: [facility] Work Phone: 02-16-2021 08:13-0500 Diastolic blood pressure 68 mm[Hg] Dr. Butch Giraldo Work Phone: [facility] Work Phone: 02-16-2021 08:13-0500 Heart rate 61 /min Dr. Butch Giraldo Work Phone: [facility] Work Phone: 02-16-2021 08:13-0500 Respiratory rate 16 /min Dr. Butch Giraldo Work Phone: [facility] Work Phone: 02-16-2021 08:13-0500 SaO2% (BldA) [Mass fraction] 95 % Dr. Butch Giraldo Work Phone: [facility] Work Phone: 02-16-2021 08:13-0500 Systolic blood pressure 142 mm[Hg] Dr. Butch Giraldo Work Phone: [facility] Work Phone: Encounters Encounter Date Encounter Type Care Provider Facility Start: 09-05-2024 [facility] Facility :[facility] Start: 08-23-2024 End: 08-23-2024 Dr. Jennifer Watt MD Work Phone: -Emergency Department Work Phone: Start: 08-23-2024 End: 08-23-2024 Emergency department patient visit Dr. Jennifer Watt MD Work Phone: [facility] Work Phone: Start: 08-14-2024 End: 08-14-2024 Adi HEREDIA -[facility] Work Phone: Start: 08-14-2024 End: 08-14-[address] Jennifer Watt MD Work Phone: [facility] Work Phone: Start: 07-30-2024 End: 07-30-[address] Jennifer Watt MD Work Phone: [facility] Work Phone: Start: 07-30-2024 End: 07-30-2024 Dr. Costa Figueroa MD -Laboratory [facility] Work Phone: Start: 07-30-2024 End: 07-30-2024 ambulatory [facility] Facility:[facility] Start: 07-22-2024 ambulatory [facility] Facility :[facility] Start: 07-07-2024 Encounter for genera l adult medical examination without abnormal findings Jennifer Watt [facility] Start: 07-03-2024 End: 07-03-[address] Jennifer Watt MD Work Phone: [facility] Work Phone: Start: 07-03-2024 End: 07-03-2024 Dr. Jennifer Watt MD -Laboratory, [facility] Work Phone: Start: 07-03-2024 End: 07-03-2024 Dr. Costa Figueroa MD -[facility] Work Phone: Start: 07-03-2024 End: 07-03-2024 ambulatory [facility] Facility:[facility] Start: 07-03-2024 End: 07-03-2024 ambulatory [facility] Facility:[facility] Start: 06-21-2024 End: 06-21-2024 Dr. Jennifer Watt MD -[facility] Work Phone: Start: 06-21-2024 End: 06-21-2024 ambulatory [facility] Facility:[facility] Start: 06-12-2024 End: 07-11-2024 Dr. Edwin Nieto [facility] Work Phone: Start: 06-12-2024 End: 07-11-2024 ambulatory [facility] Facility:[facility] Start: 06-05-2024 End: 06-11-[address] Jennifer Watt MD Work Phone: [facility] Work Phone: Start: 06-05-2024 End: 06-11-2024 Dr. Edwin Nieto [facility] Work Phone: Start: 05-31-2024 ambulatory [facility] Facility :[facility] Start: 05-31-2024 Ivory Jurado [facility] Start: 05-08-2024 End: 05-11-2024 ambulatory [facility] Facility:[facility] Start: 05-08-2024 End: 05-11-2024 Dr. Edwin Nieto [facility] Work Phone: Start: 05-01-2024 Dr. Mac Yin [facility] Start: 04-24-2024 Dr. Mac Yin [facility] Start: 04-10-2024 ambulatory [facility] Facility :[facility] Start: 04-10-2024 Dr. Edwin moseley DPDangelo -Cardiovascular Services Work Phone: Start: 03-30-2024 End: 03-30-2024 Dr. Jennifer Watt MD -Laboratory Work Phone: Start: 03-29-2024 End: 03-29-2024 Adi GUILLAUMEC -[facility] Work Phone: Start: 03-29-2024 End: 03-30-2024 ambulatory [facility] Facility:[facility] Start: 03-29-2024 End: 03-29-2024 Dr. Jennifer Watt MD -Laboratory Work Phone: Start: 03-29-2024 End: 03-29-2024 ambulatory [facility] Facility:[facility] Start: 03-22-2024 End: 03-22-2024 Dr. Jennifer Watt MD -[facility] Work Phone: Start: 03-22-2024 End: 03-22-2024 ambulatory [facility] Facility:[facility] Start: 03-09-2024 End: 03-09-2024 Dr. Miguel Siu MD -Emergency Departmen t Work Phone: Start: 03-09-2024 End: 03-09-2024 Emergency department patient visit Miguel Siu Facility:[facility] Start: 03-08-2024 Dr. Johana chamberlain MD -[facility] Work Phone: Start: 03-07-2024 ambulatory [facility] Facility :[facility] Start: 03-07-2024 End: 03-08-2024 Evaluation and management of inpatient [facility] Facility:[facility] Start: 03-07-2024 End: 03-08-2024 Dr. Johana Archuleta MD -Progressive Care Unit Work Phone: Start: 03-07-2024 Dr. Johana chamberlain MD -[facility] Work Phone: Start: 03-06-2024 Dr. Johana chamberlain MD -[facility] Work Phone: Start: 03-05-2024 Dr. Anai Sanchez DO -[facility] Work Phone: Start: 03-04-2024 Dr. Shon Kaufman MD -[facility] Work Phone: Start: 03-04-2024 ambulatory Anai Sanchez Facility:[facility] Start: 02-28-2024 End: 03-13-2024 ambulatory Edwin Nieto Facility:[facility] Start: 02-28-2024 End: 03-13-2024 Dr. Edwin Nieto DP [facility] Work Phone: Start: 02-13-2024 Dr. Jennifer mcknight MD -[facility] Start: 02-13-2024 ambulatory Jennifer Watt Facility :[facility] Start: 02-07-2024 End: 02-11-2024 ambulatory Edwin Nieot Facility:[facility] Start: 02-01-2024 ambulatory Jennifer Watt Facility :[facility] Start: 01-26-2024 End: 01-26-2024 ambulatory Costa Figueroa Facility:[facility] Start: 01-26-2024 End: 01-26-[facility] Start: 12-15-2023 End: 01-12-2024 Evaluation and management of inpatient Johnathan Huffman Facility:[facility] Start: 12-11-2023 End: 12-11-2023 ambulatory Franklin Pradhan Facility:[facility] Start: 12-10-2023 ambulatory Franklin Pradhan Facili ty:[facility] Start: 12-10-2023 End: 12-15-2023 Evaluation and management of inpatient Jennifer Watt Facility:[facility] Start: 11-24-2023 End: 11-24-2023 ambulatory Jennifer Watt Facility:[facility] Start: 11-15-2023 End: 11-15-2023 ambulatory Jennifer Watt Facility:[facility] Start: 11-11-2023 End: 11-11-2023 ambulatory Jennifer Watt Facility:[facility] Start: 11-10-2023 End: 11-10-2023 ambulatory Jennifer Watt Facility:[facility] Start: 10-28-2023 End: 10-28-2023 ambulatory Jennifer Watt Facility:[facility] Start: 10-14-2023 End: 10-14-2023 ambulatory Jennifer Watt Facility:[facility] Start: 09-30-2023 End: 09-30-2023 ambulatory [facility] Facility:[facility] Start: 09-22-2023 End: 09-22-2023 ambulatory [facility] Facility:[facility] Start: 09-07-2023 End: 09-07-2023 ambulatory [facility] Facility:[facility] Start: 07-14-2023 Dr. Jennifer Kraus hner Work Phone: [facility] Work Phone: Start: 07-13-2023 Dr. Jennifer Kraus hner Work Phone: [facility] Work Phone: Start: 07-12-2023 Dr. Jennifer Kraus hner Work Phone: [facility] Start: 07-12-2023 Dr. Jennifer Kraus hner Work Phone: [facility] Work Phone: Start: 07-11-2023 Dr. Jennifer Kraus hner Work Phone: [facility] Start: 07-11-2023 Dr. Jennifer Kraus hner Work Phone: [facility] Work Phone: Start: 07-10-2023 Dr. Jennifer Kraus hner Work Phone: [facility] Start: 07-09-2023 Dr. Jennifer Kraus hner Work Phone: [facility] Start: 07-09-2023 Dr. Jennifer Kraus hner Work Phone: [facility] Work Phone: Start: 07-09-2023 End: 07-14-2023 Evaluation and management of inpatient [facility]. [facility]att [facility] Start: 07-09-2023 End: 07-14-2023 Dr. [facility] Start: 07-06-2023 End: 07-06-[address] Jennifer Watt Work Phone: [facility] Work Phone: Start: 07-06-[address] Jennifer Watt Work Phone: [facility] Work Phone: Start: 07-06-2023 End: 07-06-2023 Dr. Jennifer Watt Work Phone: [facility] Work Phone: Start: 07-05-2023 End: 07-05-[address] Jennifer Watt Work Phone: [facility] Work Phone: Start: 07-05-2023 End: 07-05-2023 Dr. Jennifer Watt Work Phone: [facility] Work Phone: Start: 06-16-2023 End: 06-16-[address] Jennifer Watt Work Phone: [facility] Work Phone: Start: 06-16-2023 End: 06-16-[address] [facility] Start: 06-16-2023 End: 06-16-2023 Dr. Jennifer Watt Work Phone: [facility] Work Phone: Start: 06-03-2023 End: 06-03-[address] Jennifer Watt Work Phone: [facility] Work Phone: Start: 06-03-2023 End: 06-03-[address] Jennifer Watt Work Phone: [facility] Work Phone: Start: 06-03-2023 End: 06-03-2023 Dr. Jennifer Watt Work Phone: [facility] Work Phone: Start: 05-19-2023 End: 05-19-[address] Jennifer Watt Work Phone: [facility] Work Phone: Start: 05-19-2023 End: 05-19-[address] Jennifer Watt Work Phone: [facility] Work Phone: Start: 05-19-2023 End: 05-19-2023 Dr. Jennifer Watt Work Phone: [facility] Work Phone: Start: 03-29-2023 End: 03-29-[address] Jennifer Watt Work Phone: [facility] Work Phone: Start: 03-29-2023 End: 03-29-[address] Jennifer Watt Work Phone: [facility] Work Phone: Start: 03-29-2023 End: 03-29-2023 Dr. Jennifer Watt Work Phone: [facility] Work Phone: Start: 03-29-2023 End: 03-29-[address] Jennifer Watt Work Phone: [facility] Work Phone: Start: 03-29-2023 End: 03-29-2023 Dr. Jennifer Watt Work Phone: [facility] Work Phone: Start: 02-24-2023 End: 02-24-[address] Jennifer Watt Work Phone: [facility] Work Phone: Start: 02-10-2023 End: 02-10-[address] Jennifer Watt Work Phone: [facility] Work Phone: Start: 02-10-2023 End: 02-10-[address] eJnnifer Watt Work Phone: [facility] Work Phone: Start: 02-10-2023 End: 02-10-2023 Dr. Jennifer Watt Work Phone: [facility] Work Phone: Start: 02-01-2023 End: 02-01-[address] Jennifer Watt Work Phone: [facility] Work Phone: Start: 02-01-2023 End: 02-01-2023 Dr. Jennifer Watt Work Phone: [facility] Work Phone: Start: 01-18-2023 End: 01-18-[address] Jennifer Watt Work Phone: [facility] Work Phone: Start: 01-18-2023 End: 01-18-[address] [facility] Start: 01-18-2023 End: 01-18-2023 Dr. [facility] Start: 01-12-2023 End: 01-13-2023 Evaluation and management of inpatient Dr. Jennifer Watt Work Phone: [facility] Work Phone: Start: 01-12-2023 End: 01-13-2023 Dr. Jennifer Watt Work Phone: [facility] Work Phone: Start: 01-04-2023 End: 01-04-[address] Jennifer Watt Work Phone: [facility] Work Phone: Start: 01-04-2023 End: 01-04-[address] [facility] Wtat [facility] Start: 01-04-2023 End: 01-04-2023 Dr. [facility] Start: 12-21-2022 End: 12-21-[address] [facility] Start: 12-21-2022 End: 12-21-2022 Dr. Jennifer Watt [facility] Start: 12-16-2022 Non-patient / Non-visit Dr. Cece Watt Work Phone: [facility] Start: 12-16-2022 End: 12-16-[address] Jennifer Watt [facility] Start: 12-16-2022 End: 12-16-2022 Dr. Jennifer Watt Work Phone: [facility] Start: 11-25-2022 End: 11-25-2022 Dr. Jennifer Watt Work Phone: [facility] Work Phone: Start: 11-24-2022 End: 11-24-[address] Jennifer Watt Work Phone: [facility] Work Phone: Start: 11-24-2022 End: 11-24-2022 Dr. Jennifer Watt [facility] Phone[facility] Start: 11-23-2022 End: 11-23-2022 Dr. Jennifer Watt Work Phone: [facility] Work Phone: Start: 11-03-2022 End: 11-12-2022 Evaluation and management of inpatient Dr. Jennifer Watt Work Phone: [facility] Work Phone: Start: 11-03-2022 End: 11-12-2022 Dr. Jennifer Watt Work Phone: [facility]-Transitional Care Unit Start: 11-03-2022 Non-patient / Non-visit Dr. Cece Watt Work Phone: [facility] Work Phone: Start: 11-03-2022 Dr. Jennifer mcknight Work Phone: [facility] Work Phone: Start: 11-02-2022 Non-patient / Non-visit Dr. Cece Watt Work Phone: [facility] Work Phone: Start: 11-02-2022 Dr. Jennifer Kraus hner Work Phone: [facility] Work Phone: Start: 11-01-2022 Non-patient / Non-visit Dr. Cece Watt Work Phone: [facility] Work Phone: Start: 11-01-2022 Dr. Jennifer Kraus hner Work Phone: [facility] Work Phone: Start: 10-31-2022 Non-patient / Non-visit Dr. Cece Watt Work Phone: [facility] Work Phone: Start: 10-31-2022 Dr. Jennifer Kraus hner Work Phone: [facility] Work Phone: Start: 10-30-2022 Non-patient / Non-visit Dr. Cece Watt Work Phone: [facility] Work Phone: Start: 10-30-2022 Dr. Jennifer Kraus hner Work Phone: [facility] Work Phone: Start: 10-29-2022 End: 11-03-2022 Evaluation and management of inpatient Dr. Jennifer Watt Work Phone: [facility]-Progressive Care Unit Work Phone: Start: 10-29-2022 End: 11-03-2022 Dr. Jennifer Watt [facility] Work [facility] Start: 10-29-2022 Non-patient / Non-visit Dr. Cece Watt Work Phone: [facility] Work Phone: Start: 10-29-2022 Dr. Jennifer velázquezr Work Phone: [facility] Work Phone: Start: 10-28-2022 Evaluation and management of inpatient Dr. Jennifer Watt Work Phone: [facility] Care [facility] Work Phone: Start: 10-28-2022 Non-patient / Non-visit Dr. Cece Watt Work Phone: [facility] Work Phone: Start: 10-28-[address] Dee Watt Work Phone: [facility] Work Phone: Start: 10-28-2022 Dr. Jennifer Kraus hner Work Phone: [facility] Work Phone: Start: 10-26-2022 End: 10-26-[address] Jennifer Watt Work Phone: [facility] Work Phone: Start: 10-26-2022 End: 10-26-[address] Jennifer Watt Work Phone: [facility]-Cardiovascular Services Work Phone: Start: 10-26-2022 End: 10-26-2022 Dr. Jennifer Watt [facility] Phone[facility] Start: 10-11-2022 End: 10-11-[address] Jennifer Watt Work Phone: [facility] Work Phone: Start: 10-11-2022 End: 10-11-2022 Dr. Jennifer Watt Work Phone: [facility] Work Phone: Start: 09-07-2022 End: 09-07-[address] Jennifer Watt Work Phone: [facility] Work Phone: Start: 09-07-2022 End: 09-07-[address] Jennifer Watt Work Phone: [facility] Work Phone: Start: 09-07-2022 End: 09-07-2022 Dr. Jennifer Watt Work Phone: [facility] Work Phone: Start: 09-01-2022 End: 09-01-[address] Jennifer Watt Work Phone: [facility] Work Phone: Start: 09-01-2022 End: 09-01-2022 Dr. Jennifer Watt Work Phone: [facility] Work Phone: Start: 08-24-2022 End: 08-24-[address] [facility] Work Phone: Start: 08-24-2022 End: 08-24-2022 Dr. Jennifer [facility] Work Phone: Start: 08-03-2022 End: 08-03-[address] Jennifer Watt Work Phone: [facility] Work Phone: Start: 08-03-2022 End: 08-03-2022 Dr. Jennifer Watt Work Phone: [facility] Work Phone: Start: 2022 End: [address] Jennifer Watt Work Phone: [facility] Work Phone: Start: 2022 End: 2022 Dr. Jennifer Watt Work Phone: [facility] Neurology Start: 06-10-2022 End: 06-10-[address] Jennifer Watt Work Phone: [facility] Work Phone: Start: 06-10-2022 End: 06-10-[address] Jennifer Watt Work Phone: [facility] Work Phone: Start: 06-10-2022 End: 06-10-2022 Dr. Jeninfer Watt Work Phone: [facility] Start: 05-19-2022 End: 05-19-[address] Jennifer Watt Work Phone: [facility] Work Phone: Start: 05-19-2022 End: 05-19-[address] Jennifer Watt Work Phone: [facility] ure Work Phone: Start: 05-19-2022 End: 05-19-2022 Dr. Jennifer aWtt Work Phone: [facility] ure Start: 05-17-2022 End: 05-17-[address] Jennifer Watt Work Phone: [facility] Work Phone: Start: 05-17-2022 End: 05-17-2022 Dr. Jennifer Watt Work Phone: [facility] Start: 05-13-2022 End: 05-13-2022 Dr. Jennifer Watt Work Phone: [facility] Start: 05-11-2022 Dr. Jennifer Kraus hner Work Phone: [facility] Start: 04-12-2022 End: 04-24-2022 Evaluation and management of inpatient Dr. Jennifer Watt Work Phone: [facility] Work Phone: Start: 04-12-2022 End: 04-24-2022 Dr. Jennifer Watt Work Phone: [facility]-Transitional Care Unit Start: 04-12-2022 Dr. Jennifer Kraus hner Work Phone: [facility] Inpatient Physicians Start: 04-11-2022 Dr. Jennifer Kraus hner Work Phone: [facility] Physicians Start: 04-10-2022 Dr. Jennifer Kraus hner Work Phone: [facility] Start: 04-09-2022 Dr. Jennifer Kraus hner Work Phone: [facility] Start: 04-08-2022 Dr. Jennifer Kraus hner Work Phone: [facility] Start: 04-07-2022 Dr. Jennifer Kraus hner Work Phone: [facility] Start: 04-06-2022 Dr. Jennifer Kraus hner Work Phone: [facility] Start: 04-05-2022 Dr. Jennifer Kraus hner Work Phone: [facility] Start: 04-05-2022 End: 04-12-2022 Evaluation and management of inpatient Dr. Jennifer Watt Work Phone: [facility] Work Phone: Start: 04-05-2022 End: 04-12-2022 Dr. Jennifer Watt Work Phone: [facility]-Progressive Care Unit Start: 04-05-2022 End: 04-05-2022 Dr. Jennifer Watt Work Phone: [facility] Start: 03-22-2022 Dr. Jennifer Kraus hner Work Phone: [facility]-Speech Therapy Start: 03-17-2022 End: 03-17-2022 Dr. Jennifer Watt Work Phone: [facility] Start: 02-27-2022 End: 03-10-2022 Evaluation and management of inpatient Dr. Jennifer Watt Work Phone: [facility]-Transitional Care Unit Start: 02-27-2022 End: 03-10-2022 Dr. Jennifer Watt Work Phone: [facility]Trans[facility] Start: 02-27-2022 Non-patient / Non-visit Dr. Cece Watt Work Phone: [facility] Start: 02-27-2022 Dr. Jennifer Kraus hner Work Phone: [facility] Start: 02-26-2022 Non-patient / Non-visit Dr. Cece Watt Work Phone: [facility] Start: 02-26-2022 Dr. Jennifer velázquezr Work Phone: [facility] Start: 02-25-2022 Non-patient / Non-visit Dr. Cece Watt Work Phone: [facility] Start: 02-25-2022 Dr. eJnnifer Kraus hner Work Phone: [facility] Start: 02-25-2022 Non-patient / Non-visit Dr. Cece Watt Work Phone: [facility] Start: 02-25-2022 Dr. Jennifer Kraus hner Work Phone: [facility] Start: 02-24-2022 Non-patient / Non-visit Dr. Cece Watt Work Phone: [facility] Start: 02-24-2022 End: 02-27-2022 Evaluation and management of inpatient Dr. Jennifer Watt [facility] Phone[facility] Start: 02-24-2022 End: 02-27-2022 Dr. Jennifer Watt Work Phone: [facility] Surgical 3 Start: 02-20-2022 Non-patient / Non-visit Dr. Cece Watt Work Phone: [facility] Start: 02-20-2022 Dr. Jennifer Kraus hner Work Phone: [facility] Start: 02-19-2022 Non-patient / Non-visit Dr. Cece Watt Work Phone: [facility] Start: 02-19-2022 Dr. Jennifer Kraus hner Work Phone: [facility] Start: 02-18-2022 Non-patient / Non-visit Dr. Cece Watt Work Phone: [facility] Start: 02-18-2022 Dr. Jennifer Kraus hner Work Phone: [facility] Start: 02-18-2022 Non-patient / Non-visit Dr. Cece Watt Work Phone: [facility] Start: 02-18-2022 Dr. Jennifer Kraus hner Work Phone: [facility] Start: 02-17-2022 Non-patient / Non-visit Dr. Cece Watt Work Phone: [facility] Start: 02-17-2022 Dr. Jennifer Kraus hner Work Phone: [facility] Start: 02-17-2022 Non-patient / Non-visit Dr. Cece Watt Work Phone: [facility] Start: 02-17-2022 Dr. Jennifer Kraus hner Work Phone: [facility] Start: 02-16-2022 Non-patient / Non-visit Dr. Cece Watt Work Phone: [facility] Start: 02-16-2022 Dr. Jennifer Kraus hner Work Phone: [facility] Start: 02-16-2022 Non-patient / Non-visit Dr. Cece Watt Work Phone: [facility] Start: 02-16-2022 End: 02-20-2022 Evaluation and management of inpatient Dr. Jennifer Watt Work Phone: [facility]-Intensive Care Unit Start: 02-16-2022 End: 02-20-2022 Dr. Jennifer Watt [facility] Start: 02-11-2022 End: 02-11-[address] Jennifer Watt Work Phone: [facility] Work Phone: Start: 02-11-2022 End: 02-11-[address] Jennifer Watt [facility] Start: 02-11-2022 End: 02-11-2022 Dr. Jennifer Watt [facility] Start: 02-11-2022 End: 02-11-[address] Jennifer Watt Work Phone: [facility] Start: 02-11-2022 End: 02-11-2022 Dr. Jennifer Watt Work Phone: [facility] Start: 01-19-2022 End: 01-19-[address] Jennifer Watt Work Phone: [facility] Neurology Start: 01-19-2022 End: 01-19-2022 Dr. Jennifer Watt Work Phone: [facility] Start: 01-18-2022 End: 01-18-[address] Jennifer Watt Work Phone: [facility] Work Phone: Start: 01-18-2022 End: 01-18-[address] Jennifer Watt Work Phone: [facility] Start: 01-18-2022 End: 01-18-2022 Dr. Jennifer Watt Work Phone: [facility] Start: 01-06-2022 End: 01-06-[address] Jennifer Watt Work Phone: [facility] Start: 01-06-2022 End: 01-06-2022 Dr. Jennifer Watt Work Phone: [facility] Start: 11-17-2021 End: 11-17-[address] Jennifer Watt Work Phone: [facility] Work Phone: Start: 11-17-2021 End: 11-17-[address] [facility] W[facility] Start: 11-03-2021 End: 11-03-[address] Jennifer Watt Work Phone: [facility] Start: 10-20-2021 End: 10-20-[address] Jennifer Watt Work Phone: [facility]-Cardiovascular Services Start: 10-19-2021 End: 10-20-2021 Non-patient / Non-visit Dr. Jennifer Watt Work Phone: [facility] Start: 10-15-2021 End: 10-15-[address] Jennifer Watt Work Phone: [facility]-Pulmonary Services/Neurology Start: 10-09-2021 End: 10-09-[address] [facility] Watt [facility] Start: 09-16-2021 End: 09-16-[address] Jennifer Watt [facility] Start: 09-16-2021 End: 09-16-[address] Jennifer Watt Work Phone: [facility] Start: 09-10-2021 End: 09-10-[address] Jennifer Watt Work Phone: [facility] Start: 09-09-2021 End: 09-09-[address] Jennifer Watt Work Phone: [facility] Start: 09-08-2021 End: 09-08-[address] Jennifer Watt Work Phone: [facility] Neurology Start: 08-05-2021 End: 08-05-2021 Admission to same day surgery center Dr. Jennifer Watt Work Phone: [facility]-Hazardous Materials Handler/Special Procedures Start: 08-03-2021 End: 08-03-[address] Jennifer Watt [facility] Start: 08-03-[address] Jennifer Watt [facility] Phone[facility] Start: 07-17-2021 End: 07-17-[address] Jennifer Watt Work Phone: [facility] Start: 07-15-2021 End: 07-15-[address] Jennifer Watt Work Phone: [facility] Start: 07-06-2021 End: 07-06-[address] Jennifer Watt [facility] Phone[facility] Start: 07-01-2021 End: 07-01-[address] Jennifer Watt Work Phone: [facility] Internal Medicine Start: 06-24-2021 End: 06-24-[address] Jennifer Watt Work Phone: [facility]-Cardiovascular Services Start: 06-18-[address] Jennifer Watt Work Phone: [facility]-Occupational Therapy Start: 06-11-[address] Vish Giraldo Work Phone: [facility]-Physical Therapy Start: 06-10-2021 End: 06-10-[address] Butch Giraldo Work Phone: [facility]-Cardiovascular Services Start: 05-28-2021 Non-patient / Non-visit Dr. Georges Giarldo Work Phone: [facility] Start: 05-28-2021 End: 05-28-[address] Butch Giraldo Work Phone[facility] Start: 05-22-2021 End: 05-22-2021 Emergency department patient visit Dr. Butch Giraldo Work Phone: [facility]-Emergency Department Start: 05-18-2021 End: 05-18-[address] Butch Giraldo Work Phone: [facility] Neurology Start: 05-13-2021 End: 05-13-[address] Butch Giraldo Work Phone: [facility] Start: 05-02-2021 End: 05-02-2021 Emergency department patient visit Dr. Butch Giraldo Work Phone: [facility]-Emergency Department Start: 05-01-2021 End: 05-01-2021 Emergency department patient visit Dr. Butch Giraldo Work Phone: [facility]-Emergency Department Start: 05-01-2021 Non-patient / Non-visit Dr. Georges Giraldo Work Phone: [facility] Start: 04-30-2021 Non-patient / Non-visit Dr. Georges Giraldo Work Phone: [facility] Start: 04-30-2021 End: 04-30-[address] Butch Giraldo Work Phone: [facility]-Cardiovascular Services Start: 04-24-2021 End: 04-24-2021 Emergency department patient visit Dr. Butch Giraldo Work Phone: [facility]-Emergency Department Start: 04-24-2021 End: 04-24-[address] Butch Giraldo Work Phone: [facility] Internal Medicine Start: 04-22-2021 End: 04-22-[address] Butch Giraldo Work Phone: [facility]-Laboratory, [facility] Start: 04-21-2021 End: 04-21-[address] Butch Giraldo Work Phone: [facility] Neurology Start: 04-20-2021 End: 04-20-[address] Butch Giraldo [facility] Phone[facility] Start: 04-06-2021 End: 04-06-[address] Butch Giraldo Work Phone: [facility] Internal Medicine Start: 03-27-2021 End: 03-27-[address] Butch Giraldo Work Phone: [facility]-Sleep Lab Start: 03-10-2021 Non-patient / Non-visit Dr. Georges Giraldo Work Phone: [facility] Start: 03-10-[address] Butch Giraldo [facility] Phone[facility] Start: 03-09-2021 End: 03-09-[address] Butch Giraldo Work Phone[facility] Start: 03-02-2021 Non-patient / Non-visit Dr. Georges Giraldo Work Phone: [facility] Internal Medicine Start: 03-02-2021 Non-patient / Non-visit Dr. Georges Giraldo Work Phone: [facility] Medicine Start: 02-26-[address] Butch Giraldo Work Phone: [facility]-Radiology, [facility] Start: 02-20-[address] Margarita Giraldo Work Phone: [facility]-Cardiovascular Services Start: 02-16-2021 End: 02-16-[address] Butch Giraldo Work Phone: [facility] Neurology Procedures Date Procedure Procedure Detail Performing Clinician Start: 08-23-2024 Plain x-ray of pelvi s and lower extremity Dr. Jennifer Watt MD Work Phone: Start: 08-23-2024 CT of head without contrast Dr. Jennifer Watt MD Work Phone: Start: 07-03-[address] Jennifer Watt MD Work Phone: Start: 07-03-2024 Mean corpuscular hem oglobin concentration determination Dr. Jennifer Watt MD Work Phone: Start: 07-03-2024 Platelet mean volume determination Dr. Jennifer Watt MD Work Phone: Start: 07-03-2024 Prostate specific an tigen measurement Dr. Jennifer Watt MD Work Phone: Start: 07-03-2024 Total cholesterol:HD L ratio measurement Dr. Jennifer Watt MD Work Phone: Start: 03-09-[address] Jennifer Watt MD Work Phone: Start: 03-09-[address] Jennifer Watt MD Work Phone: Start: 03-09-2024 Dr. Jennifer Watt MD Work Phone: Start: 03-09-2024 Plain chest X-ray Dr. Naya Watt MD Work Phone: Start: 03-04-2024 Plain chest X-ray Dr. Naya Watt MD Work Phone: Start: 07-10-2023 Legionella pneumophi la antigen assay Dr. Jennifer Watt Work Phone: Start: 07-10-[address] Jennifer Watt Work Phone: Start: 07-10-2023 Dr. Jennifer Watt Work Phone: Start: 07-09-2023 Measurement of occul t blood in stool specimen using immunoassay Dr. Jennifer Watt Work Phone: Start: 07-09-2023 SARS-CoV-2, Influenz a & RSV (PCR) Dr. Jennifer Watt Work Phone: Start: 07-09-2023 Dr. Jennifer Watt Work Phone: Start: 07-09-2023 CT of chest without contrast Dr. Jennifer Watt Work Phone: Start: 07-09-2023 Plain chest X-ray Dr. Naya Watt Work Phone: Start: 07-06-2023 Plain chest X-ray Dr. Naya Watt Work Phone: Start: 01-12-2023 Dr. Jennifer Watt Work Phone: Start: 11-03-2022 Plain chest X-ray Dr. Naya Watt Work Phone: Start: 11-02-2022 Measurement of occul t blood in stool specimen using immunoassay Dr. Jennifer Watt Work Phone: Start: 11-01-2022 Coronavirus COVID-[address] Jennifer Watt Work Phone: Start: 11-01-2022 Dr. Jennifer Watt Work Phone: Start: 10-28-2022 Plain chest X-ray Dr. Naya Watt Work Phone: Start: 10-28-2022 Bacteria identified in Blood by Culture Dr. Jennifer Watt Work Phone: Start: 10-28-2022 SARS-CoV-2 & FLU Ant igen (Rapid) Dr. Jennifer Watt Work Phone: Start: 10-28-[address] Jennifer Watt Work Phone: Start: 10-28-2022 Dr. Jennifer Watt Work Phone: Start: 09-07-[address] Cece Watt Work Phone: Start: 04-12-2022 Plain chest X-ray Dr. Naya Watt Work Phone: Start: 04-12-2022 Ultrasonic guidance for thoracentesis Dr. Jennifer Watt Work Phone: Start: 04-06-2022 Plain chest X-ray Dr. Naya Watt Work Phone: Start: 04-05-2022 Plain chest X-ray Dr. Naya Watt Work Phone: Start: 02-25-2022 X-ray of chest posteroanterior view Dr. Jennifer Watt Work Phone: Start: 02-25-[address] Cece Watt Work Phone: Start: 02-24-2022 Plain chest X-ray Dr. Naya Watt Work Phone: Start: 02-24-2022 CT of head without contrast Dr. Jennifer Watt Work Phone: Start: 02-18-[address] Jennifer Watt Work Phone: Start: 02-17-2022 Plain chest X-ray Dr. Naya Watt Work Phone: Start: 02-17-2022 Plain chest X-ray Dr. Naya Watt Work Phone: Start: 02-16-2022 Plain chest X-ray Dr. Naya Watt Work Phone: Start: 05-01-2021 Plain chest X-ray Dr. Shaquille Giraldo Work Phone: Start: 02-26-[address] Margarita Giraldo Work Phone: Anaerobic microbial culture Dr. Jennifer Watt Work Phone: Bacteria identified in Blood by Culture Dr. Jennifer Watt Work Phone: Bacterial culture Dr. Jennifer Watt Work Phone: Investigation of tra nsfusion reaction Dr. Jennifer Watt Work Phone: Measurement of occul t blood in stool specimen using immunoassay Dr. Jennifer Watt Work Phone: Measurement of occul t blood in stool specimen using immunoassay Dr. Jennifer Watt Work Phone: Measurement of occul t blood in stool specimen using immunoassay Dr. Jennifer Watt Work Phone: Urine culture [facility] Work Phone: Urine culture [facility] Work Phone: Viral antigen assay Dr. Dee Watt Work Phone: Viral antigen assay Dr. Dee Watt Work Phone: Viral antigen assay Dr. Dee Watt Work Phone: Viral antigen assay Dr. Dee Watt Work Phone: Viral antigen assay Dr. Dee Watt Work Phone: Dr. Jennifer almonte Work Phone: Plan of Treatment Date Care Activity Detail Author Start: 08-23-2024 [facility] Start: 08-14-2024 Evaluation of diagnostic study results [facility] Start: 03-09-2024 [facility] Start: 03-09-2024 [facility] Start: 03-08-2024 Patient discharge [facility] Start: 03-08-2024 [facility] Start: 03-08-2024 Referral to service [facility] Start: 03-07-2024 Admission procedure [facility] Start: 03-06-2024 [facility] Start: 03-05-2024 Oxygen therapy [facility] Start: 03-05-2024 [facility] Start: 03-05-2024 Following clinical pathway protocol [facility] Start: 03-05-2024 Ambulation without limitation [facility] Start: 03-05-2024 Assessment of risk of venous thromboembolism [facility] Start: 03-05-2024 Care regimes management [facility] Start: 03-05-2024 Inhalation therapy procedure [facility] Start: 03-05-2024 Insertion of catheter into peripheral vein [facility] Start: 03-05-2024 Notification of physician [facility] Start: 03-05-2024 Providing care according to standard [facility] Start: 03-05-2024 Referral to occupational therapist [facility] Start: 03-05-2024 Referral to service [facility] Start: 03-05-2024 End: 03-05-2024 [facility] Start: 03-05-2024 Patient referral to dietitian [facility] Start: 03-04-2024 Admission procedure [facility] Start: 02-13-2024 Patient referral [facility] Work Phone: Start: 07-14-2023 Patient discharge [facility] Start: 07-11-2023 [facility] Start: 07-09-2023 End: 07-09-2023 Blood culture [facility] Start: 07-09-2023 Bacteria identified in Sputum by Culture [facility] Start: 07-09-2023 [facility] Start: 07-09-2023 Following clinical pathway protocol [facility] Start: 07-09-2023 Referral to inside wireman [facility] Start: 07-09-2023 Assessment of risk of venous thromboembolism [facility] Start: 07-09-2023 Care regimes management [facility] Start: 07-09-2023 Insertion of catheter into peripheral vein [facility] Start: 07-09-2023 Notification of physician [facility] Start: 07-09-2023 Oxygen therapy [facility] Start: 07-09-2023 Providing care according to standard [facility] Start: 07-09-2023 Provision of activity privileges [facility] Start: 07-09-2023 Referral to occupational therapist [facility] Start: 07-09-2023 Referral to service [facility] Start: 07-09-2023 End: 07-09-2023 [facility] Start: 07-09-2023 End: 07-09-2023 Verification routine [facility] Start: 07-09-2023 Hospital admission, emergency, from emergency room, medical nature [facility] Start: 07-09-2023 Admission procedure [facility] Start: 07-09-2023 Plain chest X-ray Chest 1 View (Portable) [facility] Start: 07-09-2023 XR Chest Single view [facility] Start: 06-03-2023 Iv infusion therapy prophylaxis/dx ea hour [facility] Start: 06-03-2023 Iv infusion therapy/prophylaxis /dx 1st to 1 hr [facility] Start: 01-13-2023 Oxygen therapy [facility] Start: 01-13-2023 Patient discharge [facility] Start: 01-13-2023 Removal of urinary catheter [facility] Start: 01-12-2023 Application of intermittent pneumatic compression device [facility] Start: 01-12-2023 Following clinical pathway protocol [facility] Start: 01-12-2023 Anesthesia transurethral resection of prostate [facility] Start: 01-12-2023 Trurl electrosurg rescj prostate bleed complete [facility] Start: 01-12-2023 Admission procedure [facility] Start: 01-12-2023 Provision of activity privileges [facility] Start: 01-12-2023 Irrigation of urinary bladder [facility] Start: 01-12-2023 Measuring intake and output [facility] Start: 01-12-2023 Patient education [facility] Start: 01-12-2023 Taking patient vital signs [facility] Start: 01-12-2023 Vital signs measurements [facility] Start: 01-12-2023 End: 01-12-2023 [facility] Start: 12-21-2022 Iv infusion therapy prophylaxis/dx ea hour [facility] Start: 12-21-2022 Iv infusion therapy/prophylaxis /dx 1st to 1 hr [facility] Start: 12-16-2022 Blood chemistry [facility] Start: 12-09-2022 Blood chemistry [facility] Start: 12-02-2022 Blood chemistry [facility] Start: 11-25-2022 Blood chemistry [facility] Start: 11-18-2022 Blood chemistry [facility] Start: 11-12-2022 Patient discharge [facility] Start: 11-11-2022 [facility] Start: 11-11-2022 Development of care plan [facility] Start: 11-08-2022 [facility] Start: 11-07-2022 [facility] Start: 11-06-2022 Speech therapy management [facility] Start: 11-06-2022 [facility] Start: 11-05-2022 [facility] Start: 11-04-2022 Speech therapy assessment [facility] Start: 11-04-2022 Development of care plan [facility] Start: 11-04-2022 Developing a treatment plan [facility] Start: 11-04-2022 [facility] Start: 11-03-2022 Verification routine [facility] Start: 11-03-2022 Following clinical pathway protocol [facility] Start: 11-03-2022 Aspiration precautions [facility] Start: 11-03-2022 Admission procedure [facility] Start: 11-03-2022 Measuring intake and output [facility] Start: 11-03-2022 Patient referral to dietitian [facility] Start: 11-03-2022 Referral to occupational therapist [facility] Start: 11-03-2022 Referral to service [facility] Start: 11-03-2022 Vital signs measurements [facility] Start: 11-03-2022 End: 11-03-2022 [facility] Start: 11-03-2022 Patient discharge [facility] Start: 11-03-2022 [facility] Start: 11-03-2022 [facility] Start: 11-02-2022 [facility] Start: 11-01-2022 Consultation [facility] Start: 11-01-2022 End: 11-01-2022 [facility] Start: 10-31-2022 Measurement of occult blood in stool specimen using immunoassay [facility] Start: 10-30-2022 Care regimes management [facility] Start: 10-30-2022 Notification of physician [facility] Start: 10-30-2022 [facility] Start: 10-29-2022 Admission procedure [facility] Start: 10-28-2022 End: 10-29-2022 Following clinical pathway protocol [facility] Start: 10-28-2022 Assessment of risk of venous thromboembolism [facility] Start: 10-28-2022 Insertion of catheter into peripheral vein [facility] Start: 10-28-2022 Oxygen therapy [facility] Start: 10-28-2022 Providing care according to standard [facility] Start: 10-28-2022 Referral to occupational therapist [facility] Start: 10-28-2022 Referral to service [facility] Start: 10-28-2022 [facility] Start: 10-28-2022 Continuous pulse oximetry [facility] Start: 10-28-2022 Dual pressure spontaneous ventilation support [facility] Start: 10-28-2022 Verification routine [facility] Start: 10-28-2022 Admission procedure [facility] Start: 10-28-2022 [facility] Start: 10-28-2022 End: 10-28-2022 Blood culture [facility] Start: 10-28-2022 End: 10-28-2022 [facility] Start: 10-28-2022 Bacteria identified in Blood by Culture Blood Culture [facility] Start: 10-28-2022 Bacteria identified in Urine by Culture Urine Culture [facility] Start: 06-01-2022 Blood chemistry [facility] Start: 05-25-2022 Blood chemistry [facility] Start: 05-18-2022 Blood chemistry [facility] Start: 05-11-2022 Blood chemistry [facility] Start: 05-04-2022 Blood chemistry [facility] Start: 04-27-2022 Blood chemistry [facility] Start: 04-24-2022 Patient discharge [facility] Start: 04-23-2022 Development of care plan [facility] Start: 04-21-2022 Palliative care [facility] Start: 04-16-2022 Continuous positive airway pressure ventilation treatment [facility] Start: 04-13-2022 Speech therapy management [facility] Start: 04-13-2022 Development of care plan [facility] Start: 04-13-2022 Fluid restriction [facility] Start: 04-13-2022 Developing a treatment plan [facility] Start: 04-13-2022 Speech therapy assessment [facility] Start: 04-12-2022 Admission procedure [facility] Start: 04-12-2022 Measuring intake and output [facility] Start: 04-12-2022 Patient referral to dietitian [facility] Start: 04-12-2022 Referral to occupational therapist [facility] Start: 04-12-2022 Referral to service [facility] Start: 04-12-2022 Vital signs measurements [facility] Start: 04-12-2022 [facility] Start: 04-12-2022 Following clinical pathway protocol [facility] Start: 04-12-2022 Patient discharge [facility] Start: 04-12-2022 Vital signs measurements [facility] Start: 04-10-2022 Continuous positive airway pressure ventilation treatment [facility] Start: 04-08-2022 Admission procedure [facility] Start: 04-07-2022 [facility] Start: 04-07-2022 Inhalation therapy procedure [facility] Start: 04-06-2022 Referral to manager corporate strategy [facility] Start: 04-05-2022 Following clinical pathway protocol [facility] Start: 04-05-2022 Care regimes management [facility] Start: 04-05-2022 Oxygen therapy [facility] Start: 04-05-2022 Provision of activity privileges [facility] Start: 04-05-2022 End: 04-05-2022 [facility] Start: 04-05-2022 Assessment of risk of venous thromboembolism [facility] Start: 04-05-2022 Fluid restriction [facility] Start: 04-05-2022 Insertion of catheter into peripheral vein [facility] Start: 04-05-2022 Measuring intake and output [facility] Start: 04-05-2022 Providing care according to standard [facility] Start: 04-05-2022 Referral to inside wireman [facility] Start: 04-05-2022 Referral to occupational therapist [facility] Start: 04-05-2022 Referral to service [facility] Start: 04-05-2022 End: 04-05-2022 [facility] Start: 04-04-2022 Blood chemistry [facility] Work Phone: Start: 03-28-2022 Blood chemistry [facility] Work Phone: Start: 03-21-2022 Blood chemistry [facility] Work Phone: Start: 03-17-2022 Patient referral [facility] Work Phone: Start: 03-14-2022 Blood chemistry [facility] Work Phone: Start: 03-10-2022 Oxygen therapy [facility] Start: 03-10-2022 Patient discharge [facility] Start: 03-09-2022 Development of care plan [facility] Start: 03-07-2022 [facility] Start: 03-04-2022 [facility] Start: 03-01-2022 Referral to mail examiner [facility] Start: 03-01-2022 Speech therapy management [facility] Start: 02-28-2022 Speech therapy assessment [facility] Start: 02-28-2022 [facility] Start: 02-28-2022 Developing a treatment plan [facility] Start: 02-28-2022 Development of care plan [facility] Start: 02-27-2022 Admission procedure [facility] Start: 02-27-2022 Measuring intake and output [facility] Start: 02-27-2022 Patient referral to dietitian [facility] Start: 02-27-2022 Referral to occupational therapist [facility] Start: 02-27-2022 Referral to service [facility] Start: 02-27-2022 Vital signs measurements [facility] Start: 02-27-2022 [facility] Start: 02-27-2022 Following clinical pathway protocol [facility] Start: 02-27-2022 Patient discharge [facility] Start: 02-27-2022 Patient referral to dietitian [facility] Start: 02-26-2022 Inhalation therapy procedure [facility] Start: 02-25-2022 Referral to manager corporate strategy [facility] Start: 02-24-2022 Ambulation without limitation [facility] Start: 02-24-2022 Assessment of risk of venous thromboembolism [facility] Start: 02-24-2022 Incentive spirometry [facility] Start: 02-24-2022 Insertion of catheter into peripheral vein [facility] Start: 02-24-2022 Measuring intake and output [facility] Start: 02-24-2022 Oxygen therapy [facility] Start: 02-24-2022 Providing care according to standard [facility] Start: 02-24-2022 Referral to occupational therapist [facility] Start: 02-24-2022 Referral to service [facility] Start: 02-24-2022 Speech therapy assessment [facility] Start: 02-24-2022 [facility] Start: 02-24-2022 Following clinical pathway protocol [facility] Start: 02-24-2022 Admission procedure [facility] Start: [facility]22 [facility] Start: 02-20-2022 Patient discharge [facility] Start: 02-19-2022 Care planning and problem solving actions [facility] Start: 02-19-2022 [facility] Start: 02-18-2022 [facility] Start: 02-18-2022 Swallowing Function w/Video Swallowing Function w/Video [facility] Work Phone: Start: 02-18-2022 Videoswallow [facility] Work Phone: Start: 02-18-2022 [facility] Work Phone: Start: 02-18-2022 [facility] Start: 02-17-2022 Dual pressure spontaneous ventilation support [facility] Start: 02-16-2022 Incentive spirometry [facility] Start: 02-16-2022 Care regimes management [facility] Start: 02-16-2022 Notification of physician [facility] Start: 02-16-2022 [facility] Start: 02-16-2022 Verification routine [facility] Work Phone: Start: 02-16-2022 Chart related administrative procedure [facility] Start: 02-16-2022 End: 02-16-2022 Blood culture [facility] Work Phone: Start: 02-16-2022 Ambulation without limitation [facility] Start: 02-16-2022 Assessment of risk of venous thromboembolism [facility] Start: 02-16-2022 Catheterization of vein [facility] Start: 02-16-2022 Continuous pulse oximetry [facility] Start: 02-16-2022 Insertion of catheter into peripheral vein [facility] Start: 02-16-2022 Measuring intake and output [facility] Start: 02-16-2022 Patient referral to dietitian [facility] Start: 02-16-2022 Providing care according to standard [facility] Start: 02-16-2022 Referral to inside wireman [facility] Start: 02-16-2022 Referral to occupational therapist [facility] Start: 02-16-2022 Referral to service [facility] Start: 02-16-2022 Speech therapy assessment [facility] Start: 02-16-2022 Vital signs measurements [facility] Start: 02-16-2022 End: 02-16-2022 [facility] Start: 02-16-2022 Following clinical pathway protocol [facility] Start: 02-16-2022 Admission procedure [facility] Start: 09-09-2021 [place] and lambda light chains [facility] Work Phone: Start: 09-09-2021 Serum immunofixation [facility] Work Phone: Start: 05-14-2021 Patient referral [facility] Work Phone: 24 Hour ECG [facility] Work Phone: 24 Hour ECG [facility] 24 Hour ECG [facility] Alanine aminotransfe rase [Enzymatic activity/volume] in Serum or Plasma [facility] Work Phone: Alanine aminotransfe rase [Enzymatic activity/volume] in Serum or Plasma [facility] Alanine aminotransfe rase [Enzymatic activity/volume] in Serum or Plasma [facility] Alanine aminotransfe rase [Enzymatic activity/volume] in Serum or Plasma [facility] Alanine aminotransfe rase [Enzymatic activity/volume] in Serum or Plasma [facility] Alanine aminotransfe rase [Enzymatic activity/volume] in Serum or Plasma [facility] Alanine aminotransfe rase [Enzymatic activity/volume] in Serum or Plasma [facility] Alanine aminotransfe rase [Enzymatic activity/volume] in Serum or Plasma [facility] Albumin [Mass/volume ] in Serum or Plasma [facility] Work Phone: Albumin [Mass/volume ] in Serum or Plasma [facility] Albumin [Mass/volume ] in Serum or Plasma [facility] Albumin [Mass/volume ] in Serum or Plasma [facility] Albumin [Mass/volume ] in Serum or Plasma [facility] Albumin [Mass/volume ] in Serum or Plasma [facility] Albumin [Mass/volume ] in Serum or Plasma [facility] Albumin [Mass/volume ] in Serum or Plasma [facility] Albumin [Moles/volum e] in Serum or Plasma [facility] Work Phone: Albumin/Globulin ratio [facility] Work Phone: Alkaline phosphatase [Enzymatic activity/volume] in Serum or Plasma [facility] Work Phone: Alkaline phosphatase [Enzymatic activity/volume] in Serum or Plasma [facility] Alkaline phosphatase [Enzymatic activity/volume] in Serum or Plasma [facility] Alkaline phosphatase [Enzymatic activity/volume] in Serum or Plasma [facility] Alkaline phosphatase [Enzymatic activity/volume] in Serum or Plasma [facility] Alkaline phosphatase [Enzymatic activity/volume] in Serum or Plasma [facility] Alkaline phosphatase [Enzymatic activity/volume] in Serum or Plasma [facility] Alkaline phosphatase [Enzymatic activity/volume] in Serum or Plasma [facility] Amylase [Enzymatic activity/volume] in Body fluid [facility] Anion gap measurement [facility] Work Phone: Anion gap measurement [facility] Anion gap measurement [facility] Anion gap measurement [facility] Anion gap measurement [facility] Anion gap measurement [facility] Anion gap measurement [facility] Anion gap measurement [facility] Anion gap measurement [facility] Anion gap measurement [facility] Anion gap measurement [facility] Anion gap measurement [facility] Anion gap measurement [facility] Antibody to lupus La protein measurement [facility] Antibody to Scl-70 measurement [facility] Antibody to SS-A measurement [facility] Aspartate aminotrans ferase [Enzymatic activity/volume] in Serum or Plasma [facility] Work Phone: Aspartate aminotrans ferase [Enzymatic activity/volume] in Serum or Plasma [facility] Aspartate aminotrans ferase [Enzymatic activity/volume] in Serum or Plasma [facility] Aspartate aminotrans ferase [Enzymatic activity/volume] in Serum or Plasma [facility] Aspartate aminotrans ferase [Enzymatic activity/volume] in Serum or Plasma [facility] Aspartate aminotrans ferase [Enzymatic activity/volume] in Serum or Plasma [facility] Aspartate aminotrans ferase [Enzymatic activity/volume] in Serum or Plasma [facility] Aspartate aminotrans ferase [Enzymatic activity/volume] in Serum or Plasma [facility] Bacteria identified in Blood by Culture Blood Culture [facility] Work Phone: Bacteria identified in Body fluid by Culture [facility] Bacteria identified in Unspecified specimen by Anaerobe culture [facility] Bilirubin measurement, urine [facility] Bilirubin, total measurement [facility] Work Phone: Bilirubin, total measurement [facility] Bilirubin, total measurement [facility] Bilirubin, total measurement [facility] Bilirubin, total measurement [facility] Bilirubin, total measurement [facility] Bilirubin, total measurement [facility] Bilirubin, total measurement [facility] Blood culture [facility] Work Phone: BUN/Creatinine ratio [facility] Work Phone: BUN/Creatinine ratio [facility] BUN/Creatinine ratio [facility] BUN/Creatinine ratio [facility] BUN/Creatinine ratio [facility] BUN/Creatinine ratio [facility] BUN/Creatinine ratio [facility] BUN/Creatinine ratio [facility] BUN/Creatinine ratio [facility] BUN/Creatinine ratio [facility] BUN/Creatinine ratio [facility] BUN/Creatinine ratio [facility] BUN/Creatinine ratio [facility] Calcium [Mass/volume ] in Serum or Plasma [facility] Work Phone: Calcium [Mass/volume ] in Serum or Plasma [facility] Calcium [Mass/volume ] in Serum or Plasma [facility] Calcium [Mass/volume ] in Serum or Plasma [facility] Calcium [Mass/volume ] in Serum or Plasma [facility] Calcium [Mass/volume ] in Serum or Plasma [facility] Calcium [Mass/volume ] in Serum or Plasma [facility] Calcium [Mass/volume ] in Serum or Plasma [facility] Calcium [Mass/volume ] in Serum or Plasma [facility] Calcium [Mass/volume ] in Serum or Plasma [facility] Calcium [Mass/volume ] in Serum or Plasma [facility] Calcium [Mass/volume ] in Serum or Plasma [facility] Calcium [Mass/volume ] in Serum or Plasma [facility] Carbon dioxide, tota l [Moles/volume] in Serum or Plasma [facility] Work Phone: Carbon dioxide, tota l [Moles/volume] in Serum or Plasma [facility] Carbon dioxide, tota l [Moles/volume] in Serum or Plasma [facility] Carbon dioxide, tota l [Moles/volume] in Serum or Plasma [facility] Carbon dioxide, tota l [Moles/volume] in Serum or Plasma [facility] Carbon dioxide, tota l [Moles/volume] in Serum or Plasma [facility] Carbon dioxide, tota l [Moles/volume] in Serum or Plasma [facility] Carbon dioxide, tota l [Moles/volume] in Serum or Plasma [facility] Carbon dioxide, tota l [Moles/volume] in Serum or Plasma [facility] Carbon dioxide, tota l [Moles/volume] in Serum or Plasma [facility] Carbon dioxide, tota l [Moles/volume] in Serum or Plasma [facility] Carbon dioxide, tota l [Moles/volume] in Serum or Plasma [facility] Carbon dioxide, tota l [Moles/volume] in Serum or Plasma [facility] CBC W Auto Different ial panel - Blood [facility] Centromere protein B Ab [Units/volume] in Serum [facility] Chloride [Moles/volu me] in Serum or Plasma [facility] Work Phone: Chloride [Moles/volu me] in Serum or Plasma [facility] Chloride [Moles/volu me] in Serum or Plasma [facility] Chloride [Moles/volu me] in Serum or Plasma [facility] Chloride [Moles/volu me] in Serum or Plasma [facility] Chloride [Moles/volu me] in Serum or Plasma [facility] Chloride [Moles/volu me] in Serum or Plasma [facility] Chloride [Moles/volu me] in Serum or Plasma [facility] Chloride [Moles/volu me] in Serum or Plasma [facility] Chloride [Moles/volu me] in Serum or Plasma [facility] Chloride [Moles/volu me] in Serum or Plasma [facility] Chloride [Moles/volu me] in Serum or Plasma [facility] Chloride [Moles/volu me] in Serum or Plasma [facility] Chromatin Ab [Units/ volume] in Serum or Plasma [facility] Creatinine [Moles/vo lume] in Serum or Plasma [facility] Work Phone: Creatinine [Moles/vo lume] in Serum or Plasma [facility] Creatinine [Moles/vo lume] in Serum or Plasma [facility] Creatinine [Moles/vo lume] in Serum or Plasma [facility] Creatinine [Moles/vo lume] in Serum or Plasma [facility] Creatinine [Moles/vo lume] in Serum or Plasma [facility] Creatinine [Moles/vo lume] in Serum or Plasma [facility] Creatinine [Moles/vo lume] in Serum or Plasma [facility] Creatinine [Moles/vo lume] in Serum or Plasma [facility] Creatinine [Moles/vo lume] in Serum or Plasma [facility] Creatinine [Moles/vo lume] in Serum or Plasma [facility] Creatinine [Moles/vo lume] in Serum or Plasma [facility] Creatinine [Moles/vo lume] in Serum or Plasma [facility] Cytology report of B lora fluid Cyto stain [facility] DNA double strand Ab [Units/volume] in Serum [facility] Electrophoresis: [id number] [facility] Work Phone: Electrophoresis: george ma globulin [facility] Work Phone: Globulin measurement [facility] Work Phone: Glucose [Mass/volume ] in Serum or Plasma [facility] Work Phone: Glucose [Mass/volume ] in Serum or Plasma [facility] Glucose [Mass/volume ] in Serum or Plasma [facility] Glucose [Mass/volume ] in Serum or Plasma [facility] Glucose [Mass/volume ] in Serum or Plasma [facility] Glucose [Mass/volume ] in Serum or Plasma [facility] Glucose [Mass/volume ] in Serum or Plasma [facility] Glucose [Mass/volume ] in Serum or Plasma [facility] Glucose [Mass/volume ] in Serum or Plasma [facility] Glucose [Mass/volume ] in Serum or Plasma [facility] Glucose [Mass/volume ] in Serum or Plasma [facility] Glucose [Mass/volume ] in Serum or Plasma [facility] Glucose [Mass/volume ] in Serum or Plasma [facility] Hematocrit [Volume F raction] of Blood [facility] Work Phone: Hematocrit [Volume F raction] of Blood [facility] Hematocrit [Volume F raction] of Blood [facility] Hematocrit [Volume F raction] of Blood [facility] Hematocrit [Volume F raction] of Blood [facility] Hematocrit [Volume F raction] of Blood [facility] Hematocrit [Volume F raction] of Blood [facility] Hematocrit [Volume F raction] of Blood [facility] Hematocrit [Volume F raction] of Blood [facility] Hematocrit [Volume F raction] of Blood [facility] Hematocrit [Volume F raction] of Blood [facility] Hematocrit [Volume F raction] of Blood [facility] Hematocrit [Volume F raction] of Blood [facility] Hemoglobin [Mass/vol ume] in Blood [facility] Work Phone: Hemoglobin [Mass/vol ume] in Blood [facility] Hemoglobin [Mass/vol ume] in Blood [facility] Hemoglobin [Mass/vol ume] in Blood [facility] Hemoglobin [Mass/vol ume] in Blood [facility] Hemoglobin [Mass/vol ume] in Blood [facility] Hemoglobin [Mass/vol ume] in Blood [facility] Hemoglobin [Mass/vol ume] in Blood [facility] Hemoglobin [Mass/vol ume] in Blood [facility] Hemoglobin [Mass/vol ume] in Blood [facility] Hemoglobin [Mass/vol ume] in Blood [facility] Hemoglobin [Mass/vol ume] in Blood [facility] Hemoglobin [Mass/vol ume] in Blood [facility] Hemoglobin [Presence ] in Urine [facility] Hemoglobin A1c/Hemoglobin.total in Blood [facility] IgA [Mass/volume] in Serum or Plasma [facility] Work Phone: IgG [Mass/volume] in Serum or Plasma [facility] Work Phone: IgM [Mass/volume] in Serum or Plasma [facility] Work Phone: Cherelle-1 extractable nuc lear Ab [Units/volume] in Serum [facility] [place] and lambda lig ht chains [facility] [place]/lambda light c ajit ratio [facility] Work Phone: Lambda light chains. free [Mass/volume] in Serum or Plasma [facility] Work Phone: Leukocytes [#/volume ] in Blood [facility] Work Phone: Leukocytes [#/volume ] in Blood [facility] Leukocytes [#/volume ] in Blood [facility] Leukocytes [#/volume ] in Blood [facility] Leukocytes [#/volume ] in Blood [facility] Leukocytes [#/volume ] in Blood [facility] Leukocytes [#/volume ] in Blood [facility] Leukocytes [#/volume ] in Blood [facility] Leukocytes [#/volume ] in Blood [facility] Leukocytes [#/volume ] in Blood [facility] Leukocytes [#/volume ] in Blood [facility] Leukocytes [#/volume ] in Blood [facility] Leukocytes [#/volume ] in Blood [facility] Magnesium [Mass/volu me] in Serum or Plasma [facility] Work Phone: Mean corpuscular hem oglobin concentration determination [facility] Work Phone: Mean corpuscular hem oglobin concentration determination [facility] Mean corpuscular hem oglobin concentration determination [facility] Mean corpuscular hem oglobin concentration determination [facility] Mean corpuscular hem oglobin concentration determination [facility] Mean corpuscular hem oglobin concentration determination [facility] Mean corpuscular hem oglobin concentration determination [facility] Mean corpuscular hem oglobin concentration determination [facility] Mean corpuscular hem oglobin concentration determination [facility] Mean corpuscular hem oglobin concentration determination [facility] Mean corpuscular hem oglobin concentration determination [facility] Mean corpuscular hem oglobin concentration determination [facility] Mean corpuscular hem oglobin concentration determination [facility] Mean corpuscular hem oglobin determination [facility] Work Phone: Mean corpuscular hem oglobin determination [facility] Mean corpuscular hem oglobin determination [facility] Mean corpuscular hem oglobin determination [facility] Mean corpuscular hem oglobin determination [facility] Mean corpuscular hem oglobin determination [facility] Mean corpuscular hem oglobin determination [facility] Mean corpuscular hem oglobin determination [facility] Mean corpuscular hem oglobin determination [facility] Mean corpuscular hem oglobin determination [facility] Mean corpuscular hem oglobin determination [facility] Mean corpuscular hem oglobin determination [facility] Mean corpuscular hem oglobin determination [facility] Measurement of [place] es in urine using dipstick [facility] Measurement of renal function [facility] Work Phone: Measurement of renal function [facility] Measurement of renal function [facility] Measurement of renal function [facility] Measurement of renal function [facility] Measurement of renal function [facility] Measurement of renal function [facility] Measurement of renal function [facility] Measurement of renal function [facility] Measurement of renal function [facility] Measurement of renal function [facility] Measurement of renal function [facility] Measurement of renal function [facility] Microscopic urinalysis [facility] Neutrophil count [facility] Work Phone: Neutrophil count [facility] Neutrophil count [facility] Neutrophil count [facility] Neutrophil count [facility] Neutrophil count [facility] Neutrophil count [facility] Neutrophil count [facility] Neutrophil count [facility] Neutrophil count [facility] Neutrophil count [facility] Neutrophil count [facility] Neutrophil count [facility] Neutrophil percent differential count [facility] Work Phone: Neutrophil percent differential count [facility] Neutrophil percent differential count [facility] Neutrophil percent differential count [facility] Neutrophil percent differential count [facility] Neutrophil percent differential count [facility] Neutrophil percent differential count [facility] Neutrophil percent differential count [facility] Neutrophil percent differential count [facility] Neutrophil percent differential count [facility] Neutrophil percent differential count [facility] Neutrophil percent differential count [facility] Neutrophil percent differential count [facility] Patient Education [facility] Work Phone: Patient referral [facility] Work Phone: pH of Body fluid [facility] pH of Urine [facility] Platelets [#/volume] in Blood [facility] Work Phone: Platelets [#/volume] in Blood [facility] Platelets [#/volume] in Blood [facility] Platelets [#/volume] in Blood [facility] Platelets [#/volume] in Blood [facility] Platelets [#/volume] in Blood [facility] Platelets [#/volume] in Blood [facility] Platelets [#/volume] in Blood [facility] Platelets [#/volume] in Blood [facility] Platelets [#/volume] in Blood [facility] Platelets [#/volume] in Blood [facility] Platelets [#/volume] in Blood [facility] Platelets [#/volume] in Blood [facility] Potassium [Moles/vol ume] in Serum or Plasma [facility] Work Phone: Potassium [Moles/vol ume] in Serum or Plasma [facility] Potassium [Moles/vol ume] in Serum or Plasma [facility] Potassium [Moles/vol ume] in Serum or Plasma [facility] Potassium [Moles/vol ume] in Serum or Plasma [facility] Potassium [Moles/vol ume] in Serum or Plasma [facility] Potassium [Moles/vol ume] in Serum or Plasma [facility] Potassium [Moles/vol ume] in Serum or Plasma [facility] Potassium [Moles/vol ume] in Serum or Plasma [facility] Potassium [Moles/vol ume] in Serum or Plasma [facility] Potassium [Moles/vol ume] in Serum or Plasma [facility] Potassium [Moles/vol ume] in Serum or Plasma [facility] Potassium [Moles/vol ume] in Serum or Plasma [facility] Potassium measurement [facility] Prostate specific an tigen measurement [facility] Protein electrophore sis panel - Serum or Plasma [facility] Work Phone: Red blood cell count [facility] Work Phone: Red blood cell count [facility] Red blood cell count [facility] Red blood cell count [facility] Red blood cell count [facility] Red blood cell count [facility] Red blood cell count [facility] Red blood cell count [facility] Red blood cell count [facility] Red blood cell count [facility] Red blood cell count [facility] Red blood cell count [facility] Red blood cell count [facility] Red cell distributio n width determination [facility] Work Phone: Red cell distributio n width determination [facility] Red cell distributio n width determination [facility] Red cell distributio n width determination [facility] Red cell distributio n width determination [facility] Red cell distributio n width determination [facility] Red cell distributio n width determination [facility] Red cell distributio n width determination [facility] Red cell distributio n width determination [facility] Red cell distributio n width determination [facility] Red cell distributio n width determination [facility] Red cell distributio n width determination [facility] Red cell distributio n width determination [facility] Respiratory pathogen s DNA and RNA panel - Respiratory specimen by GONSALO with probe detection [facility] [employer] antibody measurement [facility] Serum immunofixation [facility] Work Phone: Serum immunofixation [facility] Serum protein electrophoresis [facility] Work Phone: [place] extractable nu clear Ab [Presence] in Serum [facility] Sodium [Moles/volume ] in Serum or Plasma [facility] Work Phone: Sodium [Moles/volume ] in Serum or Plasma [facility] Sodium [Moles/volume ] in Serum or Plasma [facility] Sodium [Moles/volume ] in Serum or Plasma [facility] Sodium [Moles/volume ] in Serum or Plasma [facility] Sodium [Moles/volume ] in Serum or Plasma [facility] Sodium [Moles/volume ] in Serum or Plasma [facility] Sodium [Moles/volume ] in Serum or Plasma [facility] Sodium [Moles/volume ] in Serum or Plasma [facility] Sodium [Moles/volume ] in Serum or Plasma [facility] Sodium [Moles/volume ] in Serum or Plasma [facility] Sodium [Moles/volume ] in Serum or Plasma [facility] Sodium [Moles/volume ] in Serum or Plasma [facility] Specific gravity of Urine [facility] Thyroid stimulating hormone measurement [facility] Total protein measurement [facility] Work Phone: Total protein measurement [facility] Total protein measurement [facility] Total protein measurement [facility] Total protein measurement [facility] Total protein measurement [facility] Total protein measurement [facility] Total protein measurement [facility] Urea nitrogen [Mass/ volume] in Serum or Plasma [facility] Work Phone: Urea nitrogen [Mass/ volume] in Serum or Plasma [facility] Urea nitrogen [Mass/ volume] in Serum or Plasma [facility] Urea nitrogen [Mass/ volume] in Serum or Plasma [facility] Urea nitrogen [Mass/ volume] in Serum or Plasma [facility] Urea nitrogen [Mass/ volume] in Serum or Plasma [facility] Urea nitrogen [Mass/ volume] in Serum or Plasma [facility] Urea nitrogen [Mass/ volume] in Serum or Plasma [facility] Urea nitrogen [Mass/ volume] in Serum or Plasma [facility] Urea nitrogen [Mass/ volume] in Serum or Plasma [facility] Urea nitrogen [Mass/ volume] in Serum or Plasma [facility] Urea nitrogen [Mass/ volume] in Serum or Plasma [facility] Urea nitrogen [Mass/ volume] in Serum or Plasma [facility] Urinalysis, blood, qualitative [facility] Urine dipstick for glucose [facility] Urine dipstick for l eukocyte esterase [facility] Urine dipstick for nitrite [facility] Urine dipstick for protein [facility] Urine examination [facility] Urine immunofixation [facility] Work Phone: Urine immunofixation [facility] Urine kappa light ch ain measurement [facility] Work Phone: Urine microscopy: ep ithelial cells [facility] Urine Microscopy: wh ite cells [facility] Urobilinogen [Presen ce] in Urine [facility] US Carotid arteries [facility] Work Phone: US Kidney - bilatera l and Urinary bladder [facility] Work Phone: US Kidney - bilatera l and Urinary bladder [facility] Vitamin D, 25-hydrox y measurement [facility] Immunizations Immunization Date Immunization Notes Care Provider [facility] 12-13-2023 influenza, high dose seasonal, preservative-free Dr. Jennifer Watt MD Work Phone: [facility] 01-15-2022 Influenza High-Dose Quadrivalent Dr. Jennifer Watt MD Work Phone: [facility] 01-15-2022 Influenza, high dose seasonal Dr. Jennifer Watt MD Work Phone: [facility] 01-15-2022 influenza, high dose seasonal, preservative-free Dr. Jennifer Watt Work Phone: [facility] 01-27-2021 Covid (Moderna) Dr. Butch Giraldo Work Phone: [facility] 12-13-2020 influenza, injectabl e, quadrivalent, preservative free Dr. Jennifer Watt Work Phone: [facility] 12-13-2020 influenza, seasonal, injectable Dr. Butch Giraldo Work Phone: [facility] 12-06-2020 Influenza High-Dose Quadrivalent Dr. Jennifer Watt MD Work Phone: [facility] 12-06-2020 Influenza, high dose seasonal Dr. Jennifer Watt MD Work Phone: [facility] 12-06-2020 influenza, high dose seasonal, preservative-free Dr. Jennifer Watt Work Phone: [facility] 07-17-2020 hepatitis A vaccine, adult dosage Dr. Jennifer Watt Work Phone: [facility] 05-09-2020 Covid (Moderna) Dr. Butch Giraldo Work Phone: [facility] 04-11-2020 Covid (Moderna) Dr. Butch Giraldo Work Phone: [facility] 01-24-2020 pneumococcal polysaccharide vaccine, [address] Jennifer Watt Work Phone: [facility] 01-24-[address] Jennifer Watt Work Phone: [facility] 12-04-2019 influenza, injectabl e, quadrivalent, preservative free Dr. Jennifer Watt Work Phone: [facility] 12-04-2019 influenza, seasonal, injectable Dr. Jennifer Watt Work Phone: [facility] 12-04-2019 pneumococcal conjuga te vaccine, [address] Jennifer Watt Work Phone: [facility] 09-18-2019 hepatitis A vaccine, adult dosage Dr. Jennifer Watt Work Phone: [facility] 09-18-[address] Jennifer Watt Work Phone: [facility] 12-20-2018 Influenza, high dose seasonal Dr. Jennifer Watt MD Work Phone: [facility] 12-20-2018 influenza, high dose seasonal, preservative-free Dr. Jennifer Watt Work Phone: [facility] 12-24-2017 Influenza, high dose seasonal Dr. Jennifer Watt MD Work Phone: [facility] 12-24-2017 influenza, high dose seasonal, preservative-free Dr. Jennifer Watt Work Phone: [facility] 11-30-2016 Influenza, high dose seasonal Dr. Jennifer Watt MD Work Phone: [facility] 11-30-2016 influenza, high dose seasonal, preservative-free Dr. Jennifer Watt Work Phone: [facility] 11-26-2016 influenza, injectabl e, quadrivalent, preservative free Dr. Jennifer Watt Work Phone: [facility] 11-26-2016 influenza, seasonal, injectable Dr. Jennifer Watt Work Phone: [facility] 12-02-2015 influenza, injectabl e, quadrivalent, preservative free Dr. Jennifer aWtt Work Phone: [facility] 12-02-2015 influenza, seasonal, injectable Dr. Jennifer Watt Work Phone: [facility] 02-19-2015 pneumococcal conjuga te vaccine, [address] Jennifer Watt Work Phone: [facility] 12-11-2014 Influenza, high dose seasonal Dr. Jennifer Watt MD Work Phone: [facility] 12-11-2014 influenza, high dose seasonal, preservative-free Dr. Jennifer Watt Work Phone: [facility] 12-03-2014 influenza, injectabl e, quadrivalent, preservative free Dr. Jennifer Watt Work Phone: [facility] 12-03-2014 influenza, seasonal, injectable Dr. Jennifer Watt Work Phone: [facility] 12-04-2013 influenza, injectabl e, quadrivalent, preservative free Dr. Jennifer Watt Work Phone: [facility] 12-04-2013 influenza, seasonal, injectable Dr. Jennifer Watt Work Phone: [facility] 12-05-2012 influenza, injectabl e, quadrivalent, preservative free Dr. Jennifer Watt Work Phone: [facility] 12-05-2012 influenza, seasonal, injectable Dr. Jennifer Watt Work Phone: [facility] 12-05-2012 influenza, seasonal, injectable, preservative free Dr. Jennifer Watt MD Work Phone: [facility] 12-14-2011 influenza, injectabl e, quadrivalent, preservative free Dr. Jennifer Watt Work Phone: [facility] 12-14-2011 influenza, seasonal, injectable Dr. Jennifer Watt Work Phone: [facility] 12-23-2009 influenza, injectabl e, quadrivalent, preservative free Dr. Jennifer Watt Work Phone: [facility] 12-23-2009 influenza, seasonal, injectable Dr. Jennifer Watt Work Phone: [facility] 12-11-2008 influenza, injectabl e, quadrivalent, preservative free Dr. Jennifer Watt Work Phone: [facility] 12-11-2008 influenza, seasonal, injectable Dr. Jennifer Watt Work Phone: [facility] 01-24-2008 influenza, injectabl e, quadrivalent, preservative free Dr. Jennifer Watt Work Phone: [facility] 01-24-2008 influenza, seasonal, injectable Dr. Jennifer Watt Work Phone: [facility] Payers Date Payer Category Payer Medicare [id number] 2023 Self-pay [id number] 2022 Private Health Insurance [facility] [place] [id number] 2005 Private Health Insurance [facility] [id number] 2004 Medicare [id number] Unknown [id number] 2.16.8 40.1.661361.3.579.2.462 Unknown [id number] 2.16.8 40.1.312376.3.579.2.462 Unknown [id number] 2.16.8 40.1.387446.3.579.2.462 Unknown [id number] 2.16.8 40.1.499281.3.579.2.462 Unknown [id number] 2.16.8 40.1.942091.3.579.2.462 Unknown [id number] 2.16.8 40.1.251962.3.579.2.462 Unknown [id number] 2.16.8 40.1.862071.3.579.2.462 Unknown [id number] 2.16.8 40.1.809046.3.579.2.462 Unknown [id number] 2.16.8 40.1.174388.3.579.2.462 Unknown [id number] 2.16.8 40.1.938809.3.579.2.462 Unknown [id number] 2.16.8 40.1.573445.3.579.2.462 Unknown [id number] 2.16.8 40.1.083020.3.579.2.462 Unknown [id number] 2.16.8 40.1.598590.3.579.2.462 Unknown [id number] 2.16.8 40.1.037710.3.579.2.462 Unknown [id number] 2.16.8 40.1.241853.3.579.2.462 Unknown [id number] 2.16.8 40.1.268189.3.579.2.462 Unknown [id number] 2.16.8 40.1.217922.3.579.2.462 Unknown [id number] 2.16.8 40.1.141504.3.579.2.462 Unknown [id number] 2.16.8 40.1.335837.3.579.2.462 Unknown [id number] 2.16.8 40.1.274908.3.579.2.462 Unknown [id number] 2.16.8 40.1.818149.3.579.2.462 Unknown [id number] 2.16.8 40.1.285771.3.579.2.462 Unknown [id number] 2.16.8 40.1.570987.3.579.2.462 Unknown [id number] 2.16.8 40.1.394740.3.579.2.462 Unknown [id number] 2.16.8 40.1.960768.3.579.2.462 Unknown [id number] 2.16.8 40.1.617532.3.579.2.462 Unknown [id number] 2.16.8 40.1.482659.3.579.2.462 Unknown [id number] 2.16.8 40.1.700402.3.579.2.462 Unknown [id number] 2.16.8 40.1.829759.3.579.2.462 Unknown [id number] 2.16.8 40.1.630882.3.579.2.462 Unknown [id number] 2.16.8 40.1.691523.3.579.2.462 Unknown [id number] 2.16.8 40.1.228293.3.579.2.462 Unknown [id number] 2.16.8 40.1.822895.3.579.2.462 Unknown [id number] 2.16.8 40.1.081900.3.579.2.462 Unknown [id number] 2.16.8 40.1.651829.3.579.2.462 Unknown [id number] 2.16.8 40.1.561717.3.579.2.462 Unknown [id number] 2.16.8 40.1.065951.3.579.2.462 Unknown [id number] 2.16.8 40.1.151009.3.579.2.462 Unknown [id number] 2.16.8 40.1.069972.3.579.2.462 Unknown [id number] 2.16.8 40.1.319033.3.579.2.462 Unknown [id number] 2.16.8 40.1.474779.3.579.2.462 Unknown [id number] 2.16.8 40.1.116865.3.579.2.462 Unknown [id number] 2.16.8 40.1.982513.3.579.2.462 Unknown [id number] 2.16.8 40.1.111140.3.579.2.462 Unknown [id number] 2.16.8 40.1.514957.3.579.2.462 Unknown [id number] 2.16.8 40.1.791055.3.579.2.462 Unknown [id number] 2.16.8 40.1.187599.3.579.2.462 Unknown [id number] 2.16.8 40.1.644019.3.579.2.462 Social History Date Type Detail Facility Start: 05-22-2021 End: 07-09-2023 Tobacco smoking status ARIS Unknown if ever smoked [facility] Start: 1940 Sex Assigned At Male [facility] Start: 03-09-2024 End: 08-23-2024 Tobacco smoking status NHIS Never smoked tobacco (finding) [facility] Start: 06-12-2024 End: 07-07-2024 Sex Male (finding) [facility] Medical Equipment Procedure Code Equipment Code Equipment Original Text Equipment Identifier Dates Primary uncemented hemiarthroplasty of hip FDA Start: 12-11-2023 Primary uncemented hemiarthroplasty of hip ([id number]) ()[id number] FDA Start: 12-11-2023 Primary uncemented hemiarthroplasty of hip ([id number]) ()[id number] FDA Start: 12-11-2023 Primary uncemented hemiarthroplasty of hip ([id number]) ()[id number] FDA Start: 12-11-2023 Primary uncemented hemiarthroplasty of hip ()[id number] FDA Start: 12-11-2023 Primary uncemented hemiarthroplasty of hip ()[id number] FDA Start: 12-11-2023 Primary uncemented hemiarthroplasty of hip FDA Start: 12-11-2023 Primary uncemented hemiarthroplasty of hip FDA Start: 12-11-2023 Primary uncemented hemiarthroplasty of hip FDA Start: 12-11-2023 Primary uncemented hemiarthroplasty of hip FDA Start: 12-11-2023 Pen Needle, Diabetic (Bd Sanaz 2nd Gen Pen Needle) 32 gauge x 5/32 needle Start: 06-02-2021 Pen Needle, Diabetic (Bd Sanaz 2nd Gen Pen Needle) 32 gauge x 5/32 needle Start: 06-02-2021 End: 06-02-2021 Pen Needle, Diabetic (Bd Sanaz 2nd Gen Pen Needle) 32 gauge x 5/32 needle Start: 06-02-2021 End: 06-02-2021 Pen Needle, Diabetic (Bd Sanaz 2nd Gen Pen Needle) 32 gauge x 5/32 needle Start: 06-02-2021 Pen Needle, Diabetic (Bd Sanaz 2nd Gen Pen Needle) 32 gauge x 5/32 needle Start: 06-02-2021 End: 06-02-2021 Pen Needle, Diabetic (Bd Sanaz 2nd Gen Pen Needle) 32 gauge x 5/32 needle Start: 06-02-2021 End: 06-02-2021 ([id number]) ()[id number] FDA Start: 08-05-2021 ([id number]) ()[id number] FDA Start: 08-05-2021 Pen Needle, Diabetic (Bd Sanaz 2nd Gen Pen Needle) 32 gauge x 5/32 needle Start: 06-02-2021 Pen Needle, Diabetic (Bd Sanaz 2nd Gen Pen Needle) 32 gauge x 5/32 needle Start: 06-02-2021 End: 06-02-2021 Pen Needle, Diabetic (Bd Sanaz 2nd Gen Pen Needle) 32 gauge x 5/32 needle Start: 06-02-2021 End: 06-02-2021 Pen Needle, Diabetic (Bd Sanaz 2nd Gen Pen Needle) 32 gauge x 5/32 needle Start: 06-02-2021 Pen Needle, Diabetic (Bd Sanaz 2nd Gen Pen Needle) 32 gauge x 5/32 needle Start: 06-02-2021 End: 06-02-2021 Pen Needle, Diabetic (Bd Sanaz 2nd Gen Pen Needle) 32 gauge x 5/32 needle Start: 06-02-2021 End: 06-02-2021 Pen Needle, Diabetic (Bd Sanaz 2nd Gen Pen Needle) 32 gauge x 5/32 needle Start: 06-02-2021 Pen Needle, Diabetic (Bd Sanaz 2nd Gen Pen Needle) 32 gauge x 5/32 needle Start: 06-02-2021 End: 06-02-2021 Pen Needle, Diabetic (Bd Sanaz 2nd Gen Pen Needle) 32 gauge x 5/32 needle Start: 06-02-2021 End: 06-02-2021 Pen Needle, Diabetic (Bd Sanaz 2nd Gen Pen Needle) 32 gauge x 5/32 needle Start: 06-02-2021 Pen Needle, Diabetic (Bd Sanaz 2nd Gen Pen Needle) 32 gauge x 5/32 needle Start: 06-02-2021 End: 06-02-2021 Pen Needle, Diabetic (Bd Sanaz 2nd Gen Pen Needle) 32 gauge x 5/32 needle Start: 06-02-2021 End: 06-02-2021 Pen Needle, Diabetic (Bd Sanaz 2nd Gen Pen Needle) 32 gauge x 5/32 needle Start: 06-02-2021 Pen Needle, Diabetic (Bd Sanaz 2nd Gen Pen Needle) 32 gauge x 5/32 needle Start: 06-02-2021 End: 06-02-2021 Pen Needle, Diabetic (Bd Sanaz 2nd Gen Pen Needle) 32 gauge x 5/32 needle Start: 06-02-2021 End: 06-02-2021 Pen Needle, Diabetic (Bd Sanaz 2nd Gen Pen Needle) 32 gauge x 5/32 needle Start: 06-02-2021 Pen Needle, Diabetic (Bd Sanaz 2nd Gen Pen Needle) 32 gauge x 5/32 needle Start: 06-02-2021 End: 06-02-2021 Pen Needle, Diabetic (Bd Sanaz 2nd Gen Pen Needle) 32 gauge x 5/32 needle Start: 06-02-2021 End: 06-02-2021 Pen Needle, Diabetic (Bd Sanaz 2nd Gen Pen Needle) 32 gauge x 5/32 needle Start: 06-02-2021 Pen Needle, Diabetic (Bd Sanaz 2nd Gen Pen Needle) 32 gauge x 5/32 needle Start: 06-02-2021 End: 06-02-2021 Pen Needle, Diabetic (Bd Sanaz 2nd Gen Pen Needle) 32 gauge x 5/32 needle Start: 06-02-2021 End: 06-02-2021 Pen Needle, Diabetic (Bd Sanaz 2nd Gen Pen Needle) 32 gauge x 5/32 needle Start: 06-02-2021 Pen Needle, Diabetic (Bd Sanaz 2nd Gen Pen Needle) 32 gauge x 5/32 needle Start: 06-02-2021 End: 06-02-2021 Pen Needle, Diabetic (Bd Sanaz 2nd Gen Pen Needle) 32 gauge x 5/32 needle Start: 06-02-2021 End: 06-02-2021 Pen Needle, Diabetic (Bd Sanaz 2nd Gen Pen Needle) 32 gauge x 5/32 needle Start: 06-02-2021 Pen Needle, Diabetic (Bd Sanaz 2nd Gen Pen Needle) 32 gauge x 5/32 needle Start: 06-02-2021 End: 06-02-2021 Pen Needle, Diabetic (Bd Sanaz 2nd Gen Pen Needle) 32 gauge x 5/32 needle Start: 06-02-2021 End: 06-02-2021 Pen Needle, Diabetic (Bd Sanaz 2nd Gen Pen Needle) 32 gauge x 5/32 needle Start: 06-02-2021 Pen Needle, Diabetic (Bd Sanaz 2nd Gen Pen Needle) 32 gauge x 5/32 needle Start: 06-02-2021 End: 06-02-2021 Pen Needle, Diabetic (Bd Sanaz 2nd Gen Pen Needle) 32 gauge x 5/32 needle Start: 06-02-2021 End: 06-02-2021 Pen Needle, Diabetic (Bd Sanaz 2nd Gen Pen Needle) 32 gauge x 5/32 needle Start: 06-02-2021 Pen Needle, Diabetic (Bd Sanaz 2nd Gen Pen Needle) 32 gauge x 5/32 needle Start: 06-02-2021 End: 06-02-2021 Pen Needle, Diabetic (Bd Sanaz 2nd Gen Pen Needle) 32 gauge x 5/32 needle Start: 06-02-2021 End: 06-02-2021 Pen Needle, Diabetic (Bd Sanaz 2nd Gen Pen Needle) 32 gauge x 5/32 needle Start: 06-02-2021 Pen Needle, Diabetic (Bd Sanaz 2nd Gen Pen Needle) 32 gauge x 5/32 needle Start: 06-02-2021 End: 06-02-2021 Pen Needle, Diabetic (Bd Sanaz 2nd Gen Pen Needle) 32 gauge x 5/32 needle Start: 06-02-2021 End: 06-02-2021 Pen Needle, Diabetic (Bd Sanaz 2nd Gen Pen Needle) 32 gauge x 5/32 needle Start: 06-02-2021 Pen Needle, Diabetic (Bd Sanaz 2nd Gen Pen Needle) 32 gauge x 5/32 needle Start: 06-02-2021 End: 06-02-2021 Pen Needle, Diabetic (Bd Sanaz 2nd Gen Pen Needle) 32 gauge x 5/32 needle Start: 06-02-2021 End: 06-02-2021 Pen Needle, Diabetic (Bd Sanaz 2nd Gen Pen Needle) 32 gauge x 5/32 needle Start: 06-17-2022 Pen Needle, Diabetic (Bd Sanaz 2nd Gen Pen Needle) 32 gauge x 5/32 needle Start: 06-02-2021 End: 06-02-2021 Pen Needle, Diabetic (Bd Sanaz 2nd Gen Pen Needle) 32 gauge x 5/32 needle Start: 06-02-2021 End: 06-02-2021 Pen Needle, Diabetic (Bd Sanaz 2nd Gen Pen Needle) 32 gauge x 5/32 needle Start: 06-02-2021 End: 06-14-2022 Pen Needle, Diabetic (Bd Sanaz 2nd Gen Pen Needle) 32 gauge x 5/32 needle Start: 06-14-2022 End: 06-17-2022 Pen Needle, Diabetic (Bd Sanaz 2nd Gen Pen Needle) 32 gauge x 5/32 needle Start: 06-17-2022 Pen Needle, Diabetic (Bd Sanaz 2nd Gen Pen Needle) 32 gauge x 5/32 needle Start: 06-02-2021 End: 06-02-2021 Pen Needle, Diabetic (Bd Sanaz 2nd Gen Pen Needle) 32 gauge x 5/32 needle Start: 06-02-2021 End: 06-02-2021 Pen Needle, Diabetic (Bd Sanaz 2nd Gen Pen Needle) 32 gauge x 5/32 needle Start: 06-02-2021 End: 06-14-2022 Pen Needle, Diabetic (Bd Sanaz 2nd Gen Pen Needle) 32 gauge x 5/32 needle Start: 06-14-2022 End: 06-17-2022 Pen Needle, Diabetic (Bd Sanaz 2nd Gen Pen Needle) 32 gauge x 5/32 needle Start: 06-17-2022 Pen Needle, Diabetic (Bd Sanaz 2nd Gen Pen Needle) 32 gauge x 5/32 needle Start: 06-02-2021 End: 06-02-2021 Pen Needle, Diabetic (Bd Sanaz 2nd Gen Pen Needle) 32 gauge x 5/32 needle Start: 06-02-2021 End: 06-02-2021 Pen Needle, Diabetic (Bd Sanaz 2nd Gen Pen Needle) 32 gauge x 5/32 needle Start: 06-02-2021 End: 06-14-2022 Pen Needle, Diabetic (Bd Sanaz 2nd Gen Pen Needle) 32 gauge x 5/32 needle Start: 06-14-2022 End: 06-17-2022 Pen Needle, Diabetic (Bd Sanaz 2nd Gen Pen Needle) 32 gauge x 5/32 needle Start: 06-17-2022 Pen Needle, Diabetic (Bd Sanaz 2nd Gen Pen Needle) 32 gauge x 5/32 needle Start: 06-02-2021 End: 06-02-2021 Pen Needle, Diabetic (Bd Sanaz 2nd Gen Pen Needle) 32 gauge x 5/32 needle Start: 06-02-2021 End: 06-02-2021 Pen Needle, Diabetic (Bd Sanaz 2nd Gen Pen Needle) 32 gauge x 5/32 needle Start: 06-02-2021 End: 06-14-2022 Pen Needle, Diabetic (Bd Sanaz 2nd Gen Pen Needle) 32 gauge x 5/32 needle Start: 06-14-2022 End: 06-17-2022 Pen Needle, Diabetic (Bd Sanaz 2nd Gen Pen Needle) 32 gauge x 5/32 needle Start: 06-17-2022 Pen Needle, Diabetic (Bd Sanaz 2nd Gen Pen Needle) 32 gauge x 5/32 needle Start: 06-02-2021 End: 06-02-2021 Pen Needle, Diabetic (Bd Sanaz 2nd Gen Pen Needle) 32 gauge x 5/32 needle Start: 06-02-2021 End: 06-02-2021 Pen Needle, Diabetic (Bd Sanaz 2nd Gen Pen Needle) 32 gauge x 5/32 needle Start: 06-02-2021 End: 06-14-2022 Pen Needle, Diabetic (Bd Sanaz 2nd Gen Pen Needle) 32 gauge x 5/32 needle Start: 06-14-2022 End: 06-17-2022 Pen Needle, Diabetic (Bd Sanaz 2nd Gen Pen Needle) 32 gauge x 5/32 needle Start: 06-17-2022 Pen Needle, Diabetic (Bd Sanaz 2nd Gen Pen Needle) 32 gauge x 5/32 needle Start: 06-02-2021 End: 06-02-2021 Pen Needle, Diabetic (Bd Sanaz 2nd Gen Pen Needle) 32 gauge x 5/32 needle Start: 06-02-2021 End: 06-02-2021 Pen Needle, Diabetic (Bd Sanaz 2nd Gen Pen Needle) 32 gauge x 5/32 needle Start: 06-02-2021 End: 06-14-2022 Pen Needle, Diabetic (Bd Sanaz 2nd Gen Pen Needle) 32 gauge x 5/32 needle Start: 06-14-2022 End: 06-17-2022 Pen Needle, Diabetic (Bd Sanaz 2nd Gen Pen Needle) 32 gauge x 5/32 needle Start: 06-17-2022 Pen Needle, Diabetic (Bd Sanaz 2nd Gen Pen Needle) 32 gauge x 5/32 needle Start: 06-02-2021 End: 06-02-2021 Pen Needle, Diabetic (Bd Sanaz 2nd Gen Pen Needle) 32 gauge x 5/32 needle Start: 06-02-2021 End: 06-02-2021 Pen Needle, Diabetic (Bd Sanaz 2nd Gen Pen Needle) 32 gauge x 5/32 needle Start: 06-02-2021 End: 06-14-2022 Pen Needle, Diabetic (Bd Sanaz 2nd Gen Pen Needle) 32 gauge x 5/32 needle Start: 06-14-2022 End: 06-17-2022 Pen Needle, Diabetic (Bd Sanaz 2nd Gen Pen Needle) 32 gauge x 5/32 needle Start: 06-17-2022 Pen Needle, Diabetic (Bd Sanaz 2nd Gen Pen Needle) 32 gauge x 5/32 needle Start: 06-02-2021 End: 06-02-2021 Pen Needle, Diabetic (Bd Sanaz 2nd Gen Pen Needle) 32 gauge x 5/32 needle Start: 06-02-2021 End: 06-02-2021 Pen Needle, Diabetic (Bd Sanaz 2nd Gen Pen Needle) 32 gauge x 5/32 needle Start: 06-02-2021 End: 06-14-2022 Pen Needle, Diabetic (Bd Sanaz 2nd Gen Pen Needle) 32 gauge x 5/32 needle Start: 06-14-2022 End: 06-17-2022 Goals Date Patient Goal Desired Activity /State Functional Status Date Assessment Result Facility 03-08-2024 Functional status Ambulates [facility] Work Phone: 07-14-2023 Functional status Ambulates [facility] Work Phone: 07-12-2023 Functional status Ambulates [facility] Work Phone: 01-13-2023 Functional status Ambulates [facility] Work Phone: 11-12-2022 Functional status Ambulates [facility] Work Phone: 11-03-2022 Functional status Ambulates;Regan r;Bathroom Privilege;Passive Range of Motion;Active Range of Motion [facility] Work Phone: 11-01-2022 Functional status Ambulates [facility] Work Phone: 11-01-2022 Functional status Fair [facility] Work Phone: 04-24-2022 Functional status Chair [facility] Work Phone: 04-12-2022 Functional status Ambulates;Chair [facility] Work Phone: 03-10-2022 Functional status Chair [facility] Work Phone: 02-27-2022 Functional status Chair [facility] Work Phone: 02-20-2022 Functional status Chair [facility] Work Phone: 02-17-2022 Functional status Chair [facility] Work Phone: Mental Status Date Assessment Result Facility 03-09-2024 Cognitive function Awake;Alert;A ppropriate;Follow s Commands [facility] Work Phone: 03-08-2024 Cognitive function Voice/Name [facility] Work Phone: 07-14-2023 Cognitive function Voice/Name [facility] Work Phone: 07-12-2023 Cognitive function Voice/Name [facility] Work Phone: 06-16-2023 Cognitive function Awake;Alert;A ppropriate;Follow s Commands [facility] Work Phone: 06-03-2023 Cognitive function Voice/Name [facility] Work Phone: 05-19-2023 Cognitive function Awake;Alert;A ppropriate;Follow s Commands [facility] Work Phone: 01-13-2023 Cognitive function Awake;Alert;A ppropriate;Follow s Commands [facility] Work Phone: 01-13-2023 Cognitive function Voice/Name [facility] Work Phone: 01-04-2023 Cognitive function Voice/Name [facility] Work Phone: 12-21-2022 Cognitive function Voice/Name [facility] Work Phone: 11-12-2022 Cognitive function Voice/Name [facility] Work Phone: 11-03-2022 Cognitive function Voice/Name [facility] Work Phone: 11-01-2022 Cognitive function Voice/Name [facility] Work Phone: 10-28-2022 Cognitive function Level Of Cons ciousness Awake;Alert;Appropriate;Follow s Commands [facility] Work Phone: 04-24-2022 Cognitive function Voice/Name [facility] Work Phone: 04-12-2022 Cognitive function Voice/Name [facility] Work Phone: 04-12-2022 Cognitive function Awake;Alert;A ppropriate;Follow s Commands [facility] Work Phone: 03-10-2022 Cognitive function Voice/Name [facility] Work Phone: 02-27-2022 Cognitive function Voice/Name [facility] Work Phone: 02-20-2022 Cognitive function Voice/Name;To uch/Shaking;Light Pain;Deep Pain [facility] Work Phone: 02-17-2022 Cognitive function Voice/Name;To uch/Shaking;Light Pain;Deep Pain [facility] Work Phone: 05-22-2021 Cognitive function Level Of Cons ciousness Awake;Alert;Appropriate;Follow s Commands [facility] Work Phone: 05-02-2021 Cognitive function Level Of Cons ciousness Awake;Alert;Appropriate;Follow s Commands [facility] Work Phone: 05-01-2021 Cognitive function Level Of Cons ciousness Awake;Alert;Appropriate [facility] Work Phone: 04-24-2021 Cognitive function Level Of Cons ciousness Awake;Alert;Appropriate;Follow s Commands [facility] Work Phone: Clinical Notes 04-15-2020 to 08-23-2024 Note Date & Type Note Facility 08-23-2024 Radiology Diagnostic study note [facility] 08-23-2024 Radiology Diagnostic study note [facility] 08-23-2024 Discharge summary Note Date/Time August 23, 2024 3:59pm [facility] Medical Records Department [address] [place] [address] Emergency Department Summary 08/23/24 MR#: [id number] Acct: [id number] Name: FRANCISCO THOMAS Rep #:[id number] : 1940 84 From: Shelia Davenport DO PCP: Dr. Jennifer Watt MD Status:REG ER Location: ED HPI HPI - Fall History of Present Illness Chief Complaint: Fall Detail of Chief Complaint: Fall with left hip injury Informant: patient Narrative Narrative: Patient presents to the emergency department after sustaining a fall and injuring his left hip. Patient states that he was walking to his bed with his walker when he lost his balance and fell onto his left hip. He had the left hipreplaced last January after a fall with fracture. Patient also hit his head but no loss of consciousness. He is on Plavix. Denies neck pain. Denies chestpain or abdomen pain. Patient states he is having pain when attempting to bear weight and is unable to. [facility] Medical History Non-pressure chronic ulcer of left heel and midfoot with fat layer exposed CHF (congestive heart failure) COVID-19 virus infection Diabetes mellitus, type 2 Osteoarthritis Uncontrolled hypertension Closed displaced fracture of left femoral neck History of CHF (congestive heart failure) Obstructive sleep apnea Neuropathic pain Physical debility Fall Current use of insulin Back pain due to injury Restless legs Syncope Kidney stones PAF (paroxysmal atrial fibrillation) Anemia Weakness Wears glasses Depression Rash Insulin dependent diabetes mellitus Walker as ambulation aid Prostate disease Low iron Restless legs Stroke/cerebrovascular accident Dietary restriction Non-smoker BiPAP (biphasic positive airway pressure) dependence History of edema History of echocardiogram Cardiology follow-up encounter BPH (benign prostatic hyperplasia) Congestive heart failure Pneumonia Incontinence Limb weakness Unsteadiness Chronic anemia Hypertension Coronary artery disease Right renal artery stenosis Fatigue Ventricular tachycardia seen on handtools repairer (02/20/21) Peripheral vascular occlusive disease Type 2 diabetes mellitus Hyperlipidemia Essential hypertension History of CVA (cerebrovascular accident) (12/2020) Obstructive Sleep Apnea-Hypopnea Syndrome Absent pedal pulses Skin lesion of face Normocytic normochromic anemia Depression Dysphagia Proteinuria due to type 2 diabetes mellitus Facial droop due to acute stroke Acute left-sided muscle weakness Osteoarthritis Right pontine CVA Recurrent inguinal hernia of right side without obstruction or gangrene Home Medications ?Medication ?Instructions ?Recorded ?Last Taken ?Type Handicap Placard #1 ea 02/12/21 Unknown Rx hydralazine 100 mg tablet 100 mg PO TID BP #270 tabs 0 09/22/23 12/15/23 Rx oxybutynin chloride 15 mg 15 mg PO DAILY bladder 10/2712/15/23 History tablet,extended release 24 hr pramipexole 0.125 mg tablet 0.125 mg PO QHS parkinsons #90 tabs 11/08/23 Rx cyanocobalamin (vitamin B-12) 1,000 mcg IM QMONTH #0 m L 01/09/24 02/20/24 Rx 1,000 mcg/mL injection solution bisacodyl 10 mg rectal suppository 10 mg NJ QDAY PRN c onstipation 01/26/24 02/29/24 History nutritional supplements 1 ea PO BID wound healing 03/04/24 History sennosides 8.6 mg-docusate sodium 1 tab-cap PO DAILY c onstipation 01/26/24 Unknown History 50 mg capsule (Senna Plus) amlodipine 10 mg tablet 10 mg PO DAILY #90 tabs 06/04 Unknown Rx doxazosin 4 mg tablet 4 mg PO QHS Urinary Retentio n #90 02/27/24 Unknown Rx tabs acetaminophen 500 mg tablet 1,000 mg PO Q8 PRN fever o r pain 03/09/24 Unknown History latanoprost 0.005 % eye drops 1 drp EACH EYE QHS eyes 03/29/24 Unknown History losartan 25 mg tablet 25 mg PO QDAY 03/29/24 Unkno wn History multivitamin 1 tab PO QAM 03/29/24 Unknow n History polyethylene glycol 3350 17 17 g PO QDAY 03/29/24 Unkn own History gram/dose oral powder blood sugar diagnostic (Blood #300 ea 04/10/24 Unknown Rx Glucose Test strips) blood-glucose meter #1 ea 04/10/24 Unknown Rx lancets #300 ea 04/10/24 Unknown Rx pen needle, diabetic 32 gauge x #400 ea 04/10/24 Unkno wn Rx (BD Sanaz 2nd Gen Pen Needle) potassium chloride 20 mEq 20 meq PO DAILYCM supplement 30 05/05/24 Unknown Rx tablet,extended release(part/cryst) days #90 tabs sertraline 50 mg tablet 50 mg PO QHS mood #90 tabs 0 05/05/24 Unknown Rx gabapentin 100 mg capsule 100 mg PO BID pain #180 caps 06/12/24 Unknown Rx insulin glargine 100 unit/mL (3 25 unit (0.25 mL) subc ut QPM #15 mL 06/21/24 Unknown Rx mL) subcutaneous pen (Basaglar KwikPen U-100 Insulin) insulin lispro 100 unit/mL 1 sliding scale dose subcut 06/28/24 Unknown Rx subcutaneous pen (Admelog SoloStar USEASDIRECTD #15 mL U-100 Insulin lispro) clopidogrel 75 mg tablet (Plavix) 75 mg PO DAILY blood thinner #90 07/18/24 Unknown Rx tabs ezetimibe 10 mg tablet 10 mg PO QDAY #90 tabs 07/18 Unknown Rx gabapentin 300 mg capsule 300 mg PO 2100 pain #90 caps 07/18/24 Unknown Rx furosemide 40 mg tablet 40 mg PO DAILY Fluid retenti on #90 07/19/24 Unknown Rx TABLETS amiodarone 200 mg tablet 100 mg (1/2 x 200 mg) PO CAMMIE LY BP 08/14/24 Unknown Rx #45 tabs Allergy/AdvReac Type Severity Reaction Status Date / Time meloxicam (From Mobic) Allergy Intermediate itching Verified 08/23/24 13:17 pravastatin (From Pravachol) AdvReac Mild myalgia Verified 08/23/24 13:17 cholestyramine AdvReac hypoglycemi Verified 08/23/24 13:17 a Family History Mother Hypertension Cancer Father Heart disease Diabetes Surgical History History of hip replacement (~01/13/24) Status post hip hemiarthroplasty History of prostate surgery H/O transurethral resection of prostate (01/12/23) Hx of cystoscopy Hx of total knee arthroplasty History of hydrocelectomy History of cataract surgery History of lumbar laminectomy History of herniorrhaphy History of stent insertion of renal artery (08/05/21) Social History household members: spouse and other details: Abigail is his 's name housing: house number of children: 2 current occupational status: retired and other details: worked for [employer] prior to retiring leisure activities: other Smoking Status: Never smoker Electronic Cigarette Use: not used second hand exposure: No alcohol intake: former substance use type: does not use what type of physical activity do you participate in: walking frequency: 1-2 times per week inés/judaism: None seatbelt use: always ROS ROS ED Review of Systems ROS Unobtainable: other Constitutional Constitutional ED: Reports lethargy; Denies chills, fever(s), sweats or weight loss Eyes Eyes: Denies blurry vision, change in vision or diplopia ENT ENT ED: Denies rhinorrhea or sore throat Cardiovascular Cardiovascular: Denies chest pain, orthopnea or racing heartbeat Respiratory/Chest Respiratory/Chest: Denies cough, dyspnea, dyspnea on exertion, orthopnea or sputum Gastrointestinal Gastrointestinal: Denies abdominal pain, diarrhea, nausea or vomiting Genitourinary Genitourinary ED: Denies dysuria, hematuria or urinary frequency Musculoskeletal Musculoskeletal: Reports other Details: Left hip pain ; Denies arthralgias, back pain, myalgias or neck pain Integumentary Denies abscess, Abrasions or rash Neurologic Neurologic: Denies headache(s) or weakness Psychiatric Psychiatric: Denies anxiety, depression or suicidal thoughts Endocrine Endocrinology: Denies polydipsia, polyphagia or polyuria Hematologic/Lymphatic Hematologic/Lymphatic: Denies easy bleeding, easy bruising or lymphadenopathy Allergic/Immunologic Allergic/Immunologic ED: Denies mouth swelling, tongue swelling or urticaria EXAM Physical Exam Const Vital Signs: 08/23/24 13:14 08/23/24 13:48 Temperature 98.6 F Temperature Source Oral Pulse Rate 66 Respiratory Rate 16 Respiratory Effort Normal Non-Labored Respiratory Depth Normal Respiratory Pattern Normal Blood Pressure 132/57 H Blood Pressure Mean 82 Pulse Ox 98 Oxygen Delivery Method Room Air Room Air Positive well nourished and well developed General Appearance ED: well developed and NAD HEENT Reports TM's clear and moist mucous membranes HEENT Narrative: Small superficial abrasion left temporal scalp. No bony tenderness. No lacerations. No bony step-offs Left facial droop from prior stroke. normocephalic and atraumatic; Negative for trauma or tenderness Tympanic Membrane ED: Yes TM's clear Eyes PERRL and EOMs intact bilaterally General Eye ED: Negative for pale conjunctiva or scleral icterus Neck no lymphadenopathy, supple and no JVD General: Negative for tenderness Chest Wall inspection of chest normal and palpation of chest normal Chest: Negative for tenderness Resp normal respiratory effort and clear to auscultation bilaterally Effort and Inspection: Negative for respiratory distress or pain with movement Auscultation: Negative for rhonchi, wheezes or diminished lung sounds Cardio regular rate, regular rhythm, S1 normal heart sound, S2 normal heart sound and no murmurs Peripheral Pulses: pulses 2+ throughout GI normal to inspection, nondistended, normoactive bowel sounds, soft to palpation,non-tender, non-distended and no masses Back/Spine no CVA tenderness and no thoracic nor lumbar tenderness Extremity normal to inspection Extremity Narrative: Tenderness palpation over left hip. No obvious deformity. Neurovascular intactdistally. No significant tenderness with logrolling or straight leg raising. Patient has contracture of left upper arm secondary to prior stroke. General Extremety ED: Negative for edema General Extremity: Negative for edema Neuro oriented x3, CN's II-XII intact bilaterally, no sensory deficits noted and gait normal Sensorium / Orientation: awake, alert, oriented to person, oriented to place andoriented to time Motor Exam: strength 5/5 throughout and strength abnormal Psych mental status grossly normal Skin no rashes or lesions noted and no wounds MDM MDM MDM Narrative Medical decision making narrative: Patient presents after a fall that occurred yesterday same level fall. Complains of injury to his left hip. He did strike his head but no loss of consciousness. CT scan of the brain without contrast was obtained and was negative for intracranial hemorrhage or skull fracture. Patient had x-rays of the left hip and pelvis that showed no fractures or dislocation. At this point suspect likely contusion to the left hip. Patient is comfortable going back to the assisted living facility and states he has help there as he needs it. Advised to follow-up with his primary care physician and orthopedic surgeon within next 7 days. Advised use Tylenol for discomfort Radiography Diagnostic Testing: Clinical Impression(s) from Imaging Studies Brain CT 08/23/24 13:37 IMPRESSION: CHRONIC CHANGES. NO ACUTE FINDINGS. Reading Location: [facility] Hip/Pelvis X-Ray 08/23/24 14:15 IMPRESSION: Postoperative changes as above. Reading [facility] 4 view x-rays of the left hip and pelvis obtained interpreted by myself as no evidence of fracture or dislocation. Radiology in agreement. Discharge Plan Triage Chief Complaint: Fall ED Provider: Shelia Davenport Dx/Rx/DC Orders Clinical Impression: Fall, Contusion of hip, left Instructions: ED Hip Contusion Prescriptions: No Action bisacodyl 10 mg suppository 10 mg NJ QDAY PRN (Reason: constipation) nutritional supplements Powder 1 ea PO BID Rx Instructions: Sanjeev Senna Plus 8.6-50 mg capsule 1 tab-cap PO DAILY multivitamin Tablet 1 tab PO QAM polyethylene glycol 3350 17 gram/dose powder 17 g PO QDAY losartan 25 mg tablet 25 mg PO QDAY insulin glargine [Basaglar KwikPen U-100 Insulin] 100 unit/mL (3 mL) insulin pen 25 unit subcut QPM Qty: 15 3RF amiodarone 200 mg tablet 100 mg PO DAILY Qty: 45 3RF latanoprost 0.005 % drops 1 drp EACH EYE QHS Patient Comments: M-W- oxybutynin chloride 15 mg tablet extended release 24hr 15 mg PO DAILY cyanocobalamin (vitamin B-12) 1,000 mcg/mL Solution 1,000 mcg IM QMONTH Qty: 0 0RF acetaminophen 500 mg Tablet 1,000 mg PO Q8 PRN (Reason: fever or pain) (DME) Handicap Placard See Rx Instructions .Route .MEDSUPPLY Qty: 1 0RF Rx Instructions: Length of time: 5 years hydralazine 100 mg tablet 100 mg PO TID Qty: 270 3RF pramipexole 0.125 mg tablet 0.125 mg PO QHS Qty: 90 3RF amlodipine 10 mg tablet 10 mg PO DAILY Qty: 90 3RF doxazosin 4 mg tablet 4 mg PO QHS Qty: 90 3RF (DME) blood-glucose meter Misc See Rx Instructions .Route Qty: 1 0RF Rx Instructions: As directed May substitute for covered alternative (DME) Blood Glucose Test Strip See Rx Instructions .Route Qty: 300 3RF Rx Instructions: As directed May substitute for covered alternative; test 3 times daily and PRN (DME) lancets Misc See Rx Instructions .Route Qty: 300 3RF Rx Instructions: As directed May substitute for covered alternative; test 3 times daily and PRN (DME) pen needle, diabetic [BD Sanaz 2nd Gen Pen Needle] 32 gauge x 5/32 needle See Rx Instructions .ROUTE .MEDSUPPLY Qty: 400 3RF Rx Instructions: use once daily to adminster insulin as directed. For insulin administration 4times daily and PRN potassium chloride 20 mEq tablet,ER particles/crystals 20 meq PO DAILYCM 30 Days Qty: 90 1RF sertraline 50 mg tablet 50 mg PO QHS Qty: 90 3RF gabapentin 100 mg capsule 100 mg PO BID Qty: 180 3RF insulin lispro [Admelog SoloStar U-100 Insulin] 100 unit/mL insulin pen 1 sliding scale dose subcut USEASDIRECTD Qty: 15 3RF Rx Instructions: Give 3 units with each meal breakfast, lunch, dinner. Additional sliding scale for blood sugar 150-199 give 1 unit; for blood sugar 200-249 give 2 units;for blood sugar 250-299 give 3 units; for blood sugar 300-349 give 4 units; for blood sugar 350 or greater give 5 units and notify physician. Administer at start of meal. clopidogrel [Plavix] 75 mg tablet 75 mg PO DAILY Qty: 90 3RF ezetimibe 10 mg tablet 10 mg PO QDAY Qty: 90 3RF gabapentin 300 mg capsule 300 mg PO 2100 Qty: 90 3RF furosemide 40 mg tablet 40 mg PO DAILY Qty: 90 3RF Primary Care Provider: Jennifer Watt Referrals: Jennifer Watt MD [Primary Care Provider] - 5-7 Days Print Language: Yoruba Disposition Disposition: Home, Self Care What to do if you have Problems For any increased pain, shortness of breath, bleeding, nausea or vomiting, chestpain, or any unexpected problems, contact your Primary Care Provider. Call [facility] ([phone]) or report to the closest Emergency Room. Call 911 if necessary. 08/23/24 7190 <Electronically signed by Shelia Davenport DO> Cosigner Signature (if applicable): CC: Dr. Jennifer Watt MD ~ Signed [facility] Work Phone: [phone] Progress note Author Edwin Nieto [facility] Note Date/Time June 05, 2024 11: 27am [facility] [address] [place] [address] Progress Note - Wound Care 06/05/24 1125 MR#: [id number] Acct: [id number] Name: FRANCISCO THOMAS Rep #:[id number] : 1940 83 From: Edwin Nieto DPDangelo PCP: Dr. Jennifer Watt MD Status:REG RCR Location: History of Present Illness Date of Service: 06/05/24 Chief Complaint: Left posterior heel ulceration History of Wound: This is an 83-year-old male with a pressure ulceration of the left posterior heel. The patient has multiple pre-existing medical problems which are listed herein. The patient has been recently treated by means of a cellular tissue product, EpiFix. Offloading has been by means of a Prevalon boot. The patient is known to be diabetic, and his last hemoglobin A1c was 8.8 on March 29, 2024. The patient is also known to be anemic. Progress of Wound: S ? Subjective: The patient presents for follow-up evaluation of a left heel ulceration. The ulcer is healing well with no signs of infection. The patient denies pain or newconcerns. They continue to offload using a Prevalon heel offloader. PMH: Left-sided hemiplegia, diabetes mellitus, peripheral neuropathy. Current Treatment: Offloading with Prevalon heel offloader. Objective Data Objective Data Vital Signs: Vital Signs Temp Pulse Resp BP O2 Del Method 96.6 F L 58 L 14 152/58 H Room Air 06/05/24 10:59 06/05/24 10:59 06/05/24 10:59 06/05/24 10:59 05/31/24 13:59 Oxygen Delivery Method Room Air Physical Exam Narrative * General: No acute distress. * Skin/Wound: * Left heel ulceration: Healing, no erythema, no purulent drainage, some maceration noted. No debridement performed. * Plan to dress with Betadine and dry sterile dressing (DSD). * Extremities: * Bilateral fingernails and toenails thickened with evidence of dystrophic changes. * Nails debrided due to high-risk Q9 findings. Debridement Note Debridement Note Post-Debridement Measurements and Additional Note: Post-Debridement Measurements/Treatment - Nurse 1 - General Ulcer Assessment Start: 05/15/24 11:29 Freq: Status: Active Protocol: NADJA.LOWEXT Activity Type Activity Date Activity User E-sign Co-sign Detail Recorded Client Recorded Date Recorded By Document 05/15/24 11:29 KW [id number] 05/15/24 11:31 KW Document 05/22/24 11:36 RB [id number] 05/22/24 11:38 RB Document 05/31/24 13:59 KW [id number] 05/31/24 14:10 KW Document 06/05/24 10:59 ML [id number] 06/05/24 11:08 ML 05/15/24 05/22/24 05/31/24 11:29 11:36 13:59 WC - Today's Visit Information Type of service Follow-up Visit Follow-up Visit Follow-up Visit (Physician/VENEER SPLICER (Physician/VENEER SPLICER (Physician/VENEER SPLICER ) ) ) Arrival Mode Wheelchair Wheelchair Walker Transfer Assistance Manual Accompanied by Patient Identification Verified (Name & Yes Yes Yes ) Patient Requires Transmission-Based No Precautions Vital Signs Temperature (97.8 F-99.1 F) 96.5 F L 96.8 F L 96.7 F L Temperature Source Temporal Temporal Temporal Pulse Rate (60-100) 60 62 59 L Pulse Location Monitor Monitor Monitor Respiratory Rate (12-18) 18 18 16 Respiratory rate source Observation Observation Observation Oxygen Delivery Method Room Air Room Air Blood Pressure (90/60-120/80) 133/39 H 129/56 H 149/58 H Blood Pressure Mean (mm Hg) 70 80 88 Source Monitor Monitor Monitor Position Semi-Fowlers Sitting Semi-Fowlers Blood Pressure Location Left Arm Right Arm Left Arm History Since Last Visit- (Skip if this is Patient's initial visit) Have you changed medications since your No No No last visit? Any new allergies or adverse reactions No No No Had a fall/change in ADL's that may No No No increase risk of falls Signs or symptoms of abuse and/or No No No neglect since last visit Have you been in the hospital since your No No No last visit? Has dressing in place as prescribed Yes Yes Yes Has compression in place as prescribed Yes Yes Yes Has offloadiing in place as prescribed Yes Yes N/A Experienced any changes in pain level or No No No management Left Footwear Regular Shoe Regular Shoe Right Footwear Regular Shoe Regular Shoe Pain Scale: 0-10 Numeric Is Patient Pain Free? Yes Yes Yes 06/05/24 10:59 WC - Today's Visit Information Type of service Follow-up Visit (Physician/VENEER SPLICER ) Arrival Mode Wheelchair Transfer Assistance Manual Accompanied by Patient Identification Verified (Name & Yes ) Patient Requires Transmission-Based No Precautions Vital Signs Temperature (97.8 F-99.1 F) 96.6 F L Temperature Source Temporal Pulse Rate (60-100) 58 L Pulse Location Monitor Respiratory Rate (12-18) 14 Respiratory rate source Observation Oxygen Delivery Method Blood Pressure (90/60-120/80) 152/58 H Blood Pressure Mean (mm Hg) 89 Source Monitor Position Sitting Blood Pressure Location Right Arm History Since Last Visit- (Skip if this is Patient's initial visit) Have you changed medications since your No last visit? Any new allergies or adverse reactions No Had a fall/change in ADL's that may No increase risk of falls Signs or symptoms of abuse and/or No neglect since last visit Have you been in the hospital since your No last visit? Has dressing in place as prescribed Yes Has compression in place as prescribed N/A Has offloadiing in place as prescribed N/A Experienced any changes in pain level or No management Left Footwear Right Footwear Pain Scale: 0-10 Numeric Is Patient Pain Free? Yes WC - Nurse 1 - General Ulcer Measurement Start: 05/15/24 11:29 Freq: Status: Active Protocol: Activity Type Activity Date Activity User E-sign Co-sign Detail Recorded Client Recorded Date Recorded By Document 05/15/24 11:29 KW [id number] 05/15/24 11:31 KW Document 05/22/24 11:36 RB [id number] 05/22/24 11:38 RB Document 05/31/24 13:59 KW [id number] 05/31/24 14:10 KW Document 06/05/24 10:59 ML [id number] 06/05/24 11:08 ML 05/15/24 05/22/24 05/31/24 11:29 11:36 13:59 Wound Center Nurse 1 #1 LT HEEL -Combined with other wound No -Current Size (cm) - Length 1.2 0.2 0.3 -Current Size (cm) - Width 1.5 0.5 0.3 -Current Size (cm) - Depth 0 0.2 0.1 -Total Square Cm 1.80 0.10 0.09 -Date of Last Picture (Recall this 05/15/24 05/31/24 field) -Photo Taken Yes -Tunneling No -Undermining/Tunneling No -Circular Undermining No -Exudate Amt Small Medium Small -Exudate Type Serosanguineous Serosanguineous Serosanguineous -Wound Margin Distinct, Distinct, Distinct, Outline Outline Outline Attached Attached Attached -Granulation Amt Small (1-33%) Large (67-100%) Small (1-33%) -Granulation Quality Moosup Moosup Moosup -Slough/Fibrin Yes -Necrosis Amt Large (67-100%) Medium (34-66%) Large (67-100%) -Necrotic Tissue Type Adherent Slough Adherent Slough Adherent Slough -Structure Exposed N/A -Texture (Fauzia-wound Skin Appearance) Assessed Callus Assessed -Moisture (Fauzia-wound Skin Appearance) Assessed,Dry/ Maceration Assessed Scaly -Color (Fauzia-wound Skin Appearance) Assessed Assessed Assessed -Temperature (Fauzia-wound Skin No Abnormality No Abnormality No Abnormality Appearance) (Pt Warm) (Pt Warm) (Pt Warm) -Tenderness on Palpation (Fauzia-wound No No No Skin Appearance) -Ulcer Cleansing Soap and Water Wound Cleanser Soap and Water -Foul Odor after Cleansing No No No -Anesthetic Used 5% Lidocaine 5% Lidocaine 5% Lidocaine Gel Gel Gel Lower Limb Edema Present Yes Right Calf (cm) 30.5 Right Ankle (cm) 18.5 Left Calf (cm) 27.5 Left Ankle (cm) 19.5 06/05/24 10:59 Wound Center Nurse 1 #1 LT HEEL -Combined with other wound -Current Size (cm) - Length 0.5 -Current Size (cm) - Width 0.5 -Current Size (cm) - Depth 0.1 -Total Square Cm 0.25 -Date of Last Picture (Recall this field) -Photo Taken -Tunneling -Undermining/Tunneling -Circular Undermining -Exudate Amt None Present -Exudate Type -Wound Margin -Granulation Amt None Present (0 %) -Granulation Quality -Slough/Fibrin Yes -Necrosis Amt None Present (0 %) -Necrotic Tissue Type Adherent Slough -Structure Exposed -Texture (Fauzia-wound Skin Appearance) Not Assessed -Moisture (Fauzia-wound Skin Appearance) -Color (Fauzia-wound Skin Appearance) Not Assessed -Temperature (Fauzia-wound Skin No Abnormality Appearance) (Pt Warm) -Tenderness on Palpation (Fauzia-wound No Skin Appearance) -Ulcer Cleansing Rinsed/ Irrigated with Saline -Foul Odor after Cleansing No -Anesthetic Used 5% Lidocaine Gel Lower Limb Edema Present Right Calf (cm) Right Ankle (cm) Left Calf (cm) Left Ankle (cm) WC - Nurse 2 - General Ulcer CM Notes Start: 05/15/24 11:29 Freq: Status: Active Protocol: Activity Type Activity Date Activity User E-sign Co-sign Detail Recorded Client Recorded Date Recorded By Document 05/15/24 11:58 DS [id number] 05/15/24 12:01 DS Document 05/22/24 11:50 JF [id number] 05/22/24 11:52 JF Document 05/31/24 14:14 GM [id number] 05/31/24 14:19 GM 05/15/24 05/22/24 05/31/24 11:58 11:50 14:14 Wound Center Nurse 2 #1 LT HEEL -Time 11:55 11:51 14:16 -Correct Patient Yes Yes Yes -Correct Side, Site, Position Yes Yes Yes -Correct Procedure Yes Yes Yes -Procedure Performed Yes Yes Yes -Type of Procedure Debridement Debridement Debridement -Clinical Debridement Subcutaneous Subcutaneous Subcutaneous -Tissue Removed Subcutaneous Subcutaneous Subcutaneous -Post Debridement (cm) - Length 0.4 0.7 0.3 -Post Debridement (cm) - Width 0.5 0.3 0.6 -Post Debridement (cm) - Depth 0.1 0.1 0.1 -Total Square (Post) (cm) 0.20 0.21 0.18 -Area of Debridement (cm) - Length 0.4 0.7 0.1 -Area of Debridement (cm) - Width 0.5 0.3 0.6 -Total Square (Area) (cm) 0.20 0.21 0.06 -Tunneling No No No -Undermining/Tunneling No No No -Circular Undermining No No No -Wound/Ulcer Outcome Not Healed Not Healed Not Healed -Ulcer Cleansing Rinsed/ Rinsed/ Rinsed/ Irrigated with Irrigated with Irrigated with Saline Saline Saline -Foul Odor after Cleansing No No No -Bioengineered Tissue Yes Yes No -Type of Bioengineered Tissue Epifix 18mm Epifix 18mm Disc Disc -Expiration Date 12/12/28 12/12/28 -Product Lot Number [id number] -Percent Used 100 100 -Lot number of Saline Used [id number] -Bleeding Controlled with Pressure Pressure Pressure -Treatment Response Procedure Procedure Procedure Tolerated Well Tolerated Well Tolerated Well -Offloading Yes Yes Yes -Type of Offloading Darco Shoe - Surgical Shoe Darco Shoe - Left Left -Assistive Device(s) Walker -Debridement - Subq, 1st 20sq cm No No Yes -Apply Skin Sub - 1st 25 sq cm - Feet 1 1 -Epifix 18mm Disc 3 3 Pain Scale: 0-10 Numeric Is Patient Pain Free? Yes Yes Yes - Nurse 3 - General Ulcer D/C NN Start: 05/15/24 11:29 Freq: Status: Active Protocol: Activity Type Activity Date Activity User E-sign Co-sign Detail Recorded Client Recorded Date Recorded By Document 05/15/24 12:16 RB [id number] 05/15/24 12:17 RB Document 05/22/24 12:03 RB [id number] 05/22/24 12:04 RB Document 05/31/24 14:36 KW [id number] 05/31/24 14:36 KW 05/15/24 05/22/24 05/31/24 12:16 12:03 14:36 Wound Care Center Nurse 3 #1 LT HEEL -Primary Dressing Applied Silicone Border Silicone Border Promogran Foam 4x4 Foam 6x6 Corina Matter, Silicone Border Foam 4x4 -Promogran Corina Matter 1 -Silicone Border Foam 4x4 1 2 -Silicone Border Foam 6x6 1 LLE -Tubular Bandage Single Layer Single Layer -Size of Tubigrip Used Size D Size E -Size D ($) 1 -Size E ($) 1 -Stockings Yes: pt own tubigrip single layer Treatment Response Procedure Procedure Tolerated Well Tolerated Well Pain Scale: 0-10 Numeric Is Patient Pain Free? 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 Assessment: * Left-sided hemiplegia * Healing left heel ulceration ? No signs of infection, mild maceration. * Onychomycosis with high-risk findings (Q9 qualifying conditions) ? Nail debridement performed. P ? Plan: * Wound Care: Continue offloading with Prevalon heel offloader, apply Betadine and DSD to left heel ulceration. * Nail Care: Performed nail debridement of 10 fingernails and 10 toenails due to high-risk Q9 findings. * Follow-up: Return in [timeframe] for reassessment. Billing Justification ([id number] + [id number]) CPT 45918 ? Established Patient E/M Visit * Evaluation of the patient?s left heel ulceration, including assessment of healing progress, wound status, and risk factors. * Discussion of continued offloading and wound management plan. * Medical decision-making related to wound care and ongoing risk of complications. CPT 09212 ? Debridement of Nails (6 or More) with Q9 Findings * Patient has documented Q9-qualifying risk factors, including left-sided he miplegia and diabetes, which increase risk for foot complications. * Presence of thickened, dystrophic nails requiring debridement to prevent further complications. * Debridement performed on all 10 toenails and all 10 fingernails for proper hygiene and prevention of secondary infections. Medical Necessity: The combination of 15665 and 26123 is justified as separate and necessary services. The E/M visit was required for wound evaluation and ongoing risk assessment, while nail debridement was performed as a distinct service due to qualifying high-risk conditions. 06/05/24 1127 <Electronically signed by Edwin Nieto DPM> Cosigner Signature (if applicable): CC: ~ Signed [facility] Work Phone: [phone] 685-140703-20-2025 Progress note Author Ivory Jurado [facility] Note Date/Time May 31, 2024 3:3 3pm [facility] [address] [place] [address] Progress Note - Wound Care 05/31/24 1525 MR#: [id number] Acct: [id number] Name: FRANCISCO THOMAS Rep #:[id number] : 1940 83 From: Ivory MORROW PCP: Dr. Jennifer Watt MD Status:REG RCR Location: History of Present Illness Date of Service: 05/31/24 Chief Complaint: Left posterior heel ulceration History of Wound: This is an 83-year-old male with a pressure ulceration of the left posterior heel. The patient has multiple pre-existing medical problems which are listed herein. The patient has been recently treated by means of a cellular tissue product, EpiFix. Offloading has been by means of a Prevalon boot. The patient is known to be diabetic, and his last hemoglobin A1c was 8.8 on March 29, 2024. The patient is also known to be anemic. Subjective Subjective I am seeing Mr. Thomas today as a courtesy visit for Dr. Nieto. He received his last Epifix last week, this did come off when his dressing was removed today. Heand his report the wound has made significant progress with Epifix applications. He has been wearing the Prevena boots at rest. He reports about 2 weeks ago the pain became much less. They have no new concerns today. Objective Data Objective Data Vital Signs: Vital Signs Temp Pulse Resp BP O2 Del Method 96.7 F L 59 L 16 149/58 H Room Air 05/31/24 13:59 05/31/24 13:59 05/31/24 13:59 05/31/24 13:59 05/31/24 13:59 Oxygen Delivery Method Room Air Charges/Coding Procedures Integumentary 111xxx-113xx: 14389 Kat subq tissue 20 sq cm/< Physical Exam Const alert, oriented x3 and no apparent distress Resp normal respiratory effort and no use of accessory muscles Effort and Inspection: able to speak in complete sentences Extremity General Extremity: Negative for edema Skin no wounds Wound Narrative: Stage II pressure ulceration to the left plantar heel. There was significant dried drainage around the wound edges, slough at the wound base. After debridement, 100% granular wound bed. Debridement Note Debridement Note Wound debrided: L plantar heel Laterality: Left Type of Debridement: Excisional debridement Anesthesia Used: 5% Lidocaine Gel Depth: Down to and including healthy tissue and in the subcutaneous layer Percentage of wound debrided: 100 Instrument Used: 3mm curette Tissue Removed: slough, dried/adherent drainage Severity: Fat Layer Exposed Amount of bleeding with debridement: Mild Bleeding Controlled with: Pressure Patient tolerated procedure: Patient tolerated procedure well Post-Debridement Measurements and Additional Note: Post-Debridement Measurements/Treatment - Nurse 1 - General Ulcer Assessment Start: 05/15/24 11:29 Freq: Status: Active Protocol: CARYN Activity Type Activity Date Activity User E-sign Co-sign Detail Recorded Client Recorded Date Recorded By Document 05/15/24 11:29 KW [id number] 05/15/24 11:31 KW Document 05/22/24 11:36 RB [id number] 05/22/24 11:38 RB Document 05/31/24 13:59 KW [id number] 05/31/24 14:10 KW 05/15/24 05/22/24 05/31/24 11:29 11:36 13:59 - Today's Visit Information Type of service Follow-up Visit Follow-up Visit Follow-up Visit (Physician/VENEER SPLICER (Physician/VENEER SPLICER (Physician/VENEER SPLICER ) ) ) Arrival Mode Wheelchair Wheelchair Walker Transfer Assistance Manual Accompanied by Patient Identification Verified (Name & Yes Yes Yes ) Patient Requires Transmission-Based No Precautions Vital Signs Temperature (97.8 F-99.1 F) 96.5 F L 96.8 F L 96.7 F L Temperature Source Temporal Temporal Temporal Pulse Rate (60-100) 60 62 59 L Pulse Location Monitor Monitor Monitor Respiratory Rate (12-18) 18 18 16 Respiratory rate source Observation Observation Observation Oxygen Delivery Method Room Air Room Air Blood Pressure (90/60-120/80) 133/39 H 129/56 H 149/58 H Blood Pressure Mean (mm Hg) 70 80 88 Source Monitor Monitor Monitor Position Semi-Fowlers Sitting Semi-Fowlers Blood Pressure Location Left Arm Right Arm Left Arm History Since Last Visit- (Skip if this is Patient's initial visit) Have you changed medications since your No No No last visit? Any new allergies or adverse reactions No No No Had a fall/change in ADL's that may No No No increase risk of falls Signs or symptoms of abuse and/or No No No neglect since last visit Have you been in the hospital since your No No No last visit? Has dressing in place as prescribed Yes Yes Yes Has compression in place as prescribed Yes Yes Yes Has offloadiing in place as prescribed Yes Yes N/A Experienced any changes in pain level or No No No management Left Footwear Regular Shoe Regular Shoe Right Footwear Regular Shoe Regular Shoe Pain Scale: 0-10 Numeric Is Patient Pain Free? Yes Yes Yes WC - Nurse 1 - General Ulcer Measurement Start: 05/15/24 11:29 Freq: Status: Active Protocol: Activity Type Activity Date Activity User E-sign Co-sign Detail Recorded Client Recorded Date Recorded By Document 05/15/24 11:29 KW [id number] 05/15/24 11:31 KW Document 05/22/24 11:36 RB [id number] 05/22/24 11:38 RB Document 05/31/24 13:59 KW [id number] 05/31/24 14:10 KW 05/15/24 05/22/24 05/31/24 11:29 11:36 13:59 Wound Center Nurse 1 #1 LT HEEL -Combined with other wound No -Current Size (cm) - Length 1.2 0.2 0.3 -Current Size (cm) - Width 1.5 0.5 0.3 -Current Size (cm) - Depth 0 0.2 0.1 -Total Square Cm 1.80 0.10 0.09 -Date of Last Picture (Recall this 05/15/24 05/31/24 field) -Photo Taken Yes -Tunneling No -Undermining/Tunneling No -Circular Undermining No -Exudate Amt Small Medium Small -Exudate Type Serosanguineous Serosanguineous Serosanguineous -Wound Margin Distinct, Distinct, Distinct, Outline Outline Outline Attached Attached Attached -Granulation Amt Small (1-33%) Large (67-100%) Small (1-33%) -Granulation Quality Moosup Moosup Moosup -Slough/Fibrin Yes -Necrosis Amt Large (67-100%) Medium (34-66%) Large (67-100%) -Necrotic Tissue Type Adherent Slough Adherent Slough Adherent Slough -Structure Exposed N/A -Texture (Fauzia-wound Skin Appearance) Assessed Callus Assessed -Moisture (Fauzia-wound Skin Appearance) Assessed,Dry/ Maceration Assessed Scaly -Color (Fauzia-wound Skin Appearance) Assessed Assessed Assessed -Temperature (Fauzia-wound Skin No Abnormality No Abnormality No Abnormality Appearance) (Pt Warm) (Pt Warm) (Pt Warm) -Tenderness on Palpation (Fauzia-wound No No No Skin Appearance) -Ulcer Cleansing Soap and Water Wound Cleanser Soap and Water -Foul Odor after Cleansing No No No -Anesthetic Used 5% Lidocaine 5% Lidocaine 5% Lidocaine Gel Gel Gel Lower Limb Edema Present Yes Right Calf (cm) 30.5 Right Ankle (cm) 18.5 Left Calf (cm) 27.5 Left Ankle (cm) 19.5 WC - Nurse 2 - General Ulcer CM Notes Start: 05/15/24 11:29 Freq: Status: Active Protocol: Activity Type Activity Date Activity User E-sign Co-sign Detail Recorded Client Recorded Date Recorded By Document 05/15/24 11:58 DS [id number] 05/15/24 12:01 DS Document 05/22/24 11:50 [id number] 05/22/24 11:52 Document 05/31/24 14:14 [id number] 05/31/24 14:19 05/15/24 05/22/24 05/31/24 11:58 11:50 14:14 Wound Center Nurse 2 #1 LT HEEL -Time 11:55 11:51 14:16 -Correct Patient Yes Yes Yes -Correct Side, Site, Position Yes Yes Yes -Correct Procedure Yes Yes Yes -Procedure Performed Yes Yes Yes -Type of Procedure Debridement Debridement Debridement -Clinical Debridement Subcutaneous Subcutaneous Subcutaneous -Tissue Removed Subcutaneous Subcutaneous Subcutaneous -Post Debridement (cm) - Length 0.4 0.7 0.3 -Post Debridement (cm) - Width 0.5 0.3 0.6 -Post Debridement (cm) - Depth 0.1 0.1 0.1 -Total Square (Post) (cm) 0.20 0.21 0.18 -Area of Debridement (cm) - Length 0.4 0.7 0.1 -Area of Debridement (cm) - Width 0.5 0.3 0.6 -Total Square (Area) (cm) 0.20 0.21 0.06 -Tunneling No No No -Undermining/Tunneling No No No -Circular Undermining No No No -Wound/Ulcer Outcome Not Healed Not Healed Not Healed -Ulcer Cleansing Rinsed/ Rinsed/ Rinsed/ Irrigated with Irrigated with Irrigated with Saline Saline Saline -Foul Odor after Cleansing No No No -Bioengineered Tissue Yes Yes No -Type of Bioengineered Tissue Epifix 18mm Epifix 18mm Disc Disc -Expiration Date 12/12/28 12/12/28 -Product Lot Number [id number] -Percent Used 100 100 -Lot number of Saline Used [id number] -Bleeding Controlled with Pressure Pressure Pressure -Treatment Response Procedure Procedure Procedure Tolerated Well Tolerated Well Tolerated Well -Offloading Yes Yes Yes -Type of Offloading Darco Shoe - Surgical Shoe Darco Shoe - Left Left -Assistive Device(s) Walker -Debridement - Subq, 1st 20sq cm No No Yes -Apply Skin Sub - 1st 25 sq cm - Feet 1 1 -Epifix 18mm Disc 3 3 Pain Scale: 0-10 Numeric Is Patient Pain Free? Yes Yes Yes WC - Nurse 3 - General Ulcer D/C NN Start: 05/15/24 11:29 Freq: Status: Active Protocol: Activity Type Activity Date Activity User E-sign Co-sign Detail Recorded Client Recorded Date Recorded By Document 05/15/24 12:16 RB [id number] 05/15/24 12:17 RB Document 05/22/24 12:03 RB [id number] 05/22/24 12:04 RB Document 05/31/24 14:36 KW [id number] 05/31/24 14:36 KW 05/15/24 05/22/24 05/31/24 12:16 12:03 14:36 Wound Care Center Nurse 3 #1 LT HEEL -Primary Dressing Applied Silicone Border Silicone Border Promogran Foam 4x4 Foam 6x6 Corina Matter, Silicone Border Foam 4x4 -Promogran Corina Matter 1 -Silicone Border Foam 4x4 1 2 -Silicone Border Foam 6x6 1 LLE -Tubular Bandage Single Layer Single Layer -Size of Tubigrip Used Size D Size E -Size D ($) 1 -Size E ($) 1 -Stockings Yes: pt own tubigrip single layer Treatment Response Procedure Procedure Tolerated Well Tolerated Well Pain Scale: 0-10 Numeric Is Patient Pain Free? 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 The wound has a granular base without any evidence of ischemia or infection today. It has reduced in size. For wound care: (1) Wash the area with soap and water, pat to dry (2) Apply lightly-moistened Corina to the wond base (3) Cover with Mepilex or ExcelSAP foam border dressing (4) Change every 2-3 days, but more frequently if the dressing becomes soiled We discussed the importance of offloading pressure to the area and he was encouraged to continue to utilize the foam boots and to float his heels when resting. He did have PAD noted on his arterial studies; however, wound has been making positive progress. Agree that it is very reasonable to continue with local woundcare and close monitoring; if ever inflow becomes a concern, happy to see him inconsult over in the vascular office. He will return next week to see Dr. Nieto. 05/31/24 0618 <Electronically signed by Ivory MORROW> Julienigner Signature (if applicable): CC: ~ Signed [facility] Work Phone: [phone]) 944-299903-11-2025 Progress note Author Edwin Nieto [facility] Note Date/Time June 11, 2024 11: 59pm [facility] [address] [place] [id number] Progress Note - Wound Care 05/22/24 1151 MR#: [id number] Acct: [id number] Name: FRANCISCO THOMAS Rep #:[id number] : 1940 83 From: Edwin Nieto DPM PCP: Dr. Jennifer Watt MD Status:REG RCR Location: History of Present Illness Date of Service: 05/22/24 Chief Complaint: Left posterior heel ulceration History of Wound: This is an 83-year-old male with a pressure ulceration of the left posterior heel. The patient has multiple pre-existing medical problems which are listed herein. The patient has been recently treated by means of a cellular tissue product, EpiFix. Offloading has been by means of a Prevalon boot. The patient is known to be diabetic, and his last hemoglobin A1c was 8.8 on March 29, 2024. The patient is also known to be anemic. Objective Data Objective Data Vital Signs: Vital Signs Temp Pulse Resp BP O2 Del Method 96.8 F L 62 18 129/56 H Room Air 05/22/24 11:36 05/22/24 11:36 05/22/24 11:36 05/22/24 11:36 05/15/24 11:29 Oxygen Delivery Method Room Air Physical Exam Narrative Vascular: Dorsalis pedis posterior tibial pulses diminished bilateral lower extremity 1 L4. Some atrophic skin changes noted to bilateral feet with skin thinning and shiny taut appearance. Absent digital hair growth noted. Neurologic: Light touch protective sensation diminished to bilateral lower extremities. Dermatologic: Full-thickness ulceration noted to the plantar left heel with a mixed fibronecrotic base. Postdebridement wound demonstrated a 50-50 granular/necrotic base. No evidence of deep probing undermining or acute signs of infection noted today. 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 Patient uses bracing to left lower extremity via dropfoot assist brace. Debridement Note Debridement Note Post-Debridement Measurements and Additional Note: Post-Debridement Measurements/Treatment - Nurse 1 - General Ulcer Assessment Start: 05/15/24 11:29 Freq: Status: Active Protocol: .LOWEXT Activity Type Activity Date Activity User E-sign Co-sign Detail Recorded Client Recorded Date Recorded By Document 05/15/24 11:29 KW [id number] 05/15/24 11:31 KW Document 05/22/24 11:36 RB [id number] 05/22/24 11:38 RB 05/15/24 05/22/24 11:29 11:36 - Today's Visit Information Type of service Follow-up Visit Follow-up Visit (Physician/VENEER SPLICER (Physician/VENEER SPLICER ) ) Arrival Mode Wheelchair Wheelchair Transfer Assistance Manual Accompanied by Patient Identification Verified (Name & Yes Yes ) Patient Requires Transmission-Based No Precautions Vital Signs Temperature (97.8 F-99.1 F) 96.5 F L 96.8 F L Temperature Source Temporal Temporal Pulse Rate (60-100) 60 62 Pulse Location Monitor Monitor Respiratory Rate (12-18) 18 18 Respiratory rate source Observation Observation Oxygen Delivery Method Room Air Blood Pressure (90/60-120/80) 133/39 H 129/56 H Blood Pressure Mean (mm Hg) 70 80 Source Monitor Monitor Position Semi-Fowlers Sitting Blood Pressure Location Left Arm Right Arm History Since Last Visit- (Skip if this is Patient's initial visit) Have you changed medications since your No No last visit? Any new allergies or adverse reactions No No Had a fall/change in ADL's that may No No increase risk of falls Signs or symptoms of abuse and/or No No neglect since last visit Have you been in the hospital since your No No last visit? Has dressing in place as prescribed Yes Yes Has compression in place as prescribed Yes Yes Has offloadiing in place as prescribed Yes Yes Experienced any changes in pain level or No No management Left Footwear Regular Shoe Right Footwear Regular Shoe Pain Scale: 0-10 Numeric Is Patient Pain Free? Yes Yes - Nurse 1 - General Ulcer Measurement Start: 05/15/24 11:29 Freq: Status: Active Protocol: Activity Type Activity Date Activity User E-sign Co-sign Detail Recorded Client Recorded Date Recorded By Document 05/15/24 11:29 KW [id number] 05/15/24 11:31 KW Document 05/22/24 11:36 RB [id number] 05/22/24 11:38 RB 05/15/24 05/22/24 11:29 11:36 Wound Center Nurse 1 #1 LT HEEL -Combined with other wound No -Current Size (cm) - Length 1.2 0.2 -Current Size (cm) - Width 1.5 0.5 -Current Size (cm) - Depth 0 0.2 -Total Square Cm 1.80 0.10 -Date of Last Picture (Recall this 05/15/24 field) -Photo Taken Yes -Tunneling No -Undermining/Tunneling No -Circular Undermining No -Exudate Amt Small Medium -Exudate Type Serosanguineous Serosanguineous -Wound Margin Distinct, Distinct, Outline Outline Attached Attached -Granulation Amt Small (1-33%) Large (67-100%) -Granulation Quality Moosup Moosup -Slough/Fibrin Yes -Necrosis Amt Large (67-100%) Medium (34-66%) -Necrotic Tissue Type Adherent Slough Adherent Slough -Structure Exposed N/A -Texture (Fauzia-wound Skin Appearance) Assessed Callus -Moisture (Fauzia-wound Skin Appearance) Assessed,Dry/ Maceration Scaly -Color (Fauzia-wound Skin Appearance) Assessed Assessed -Temperature (Fauzia-wound Skin No Abnormality No Abnormality Appearance) (Pt Warm) (Pt Warm) -Tenderness on Palpation (Fauzia-wound No No Skin Appearance) -Ulcer Cleansing Soap and Water Wound Cleanser -Foul Odor after Cleansing No No -Anesthetic Used 5% Lidocaine 5% Lidocaine Gel Gel Lower Limb Edema Present Yes Right Calf (cm) 30.5 Right Ankle (cm) 18.5 Left Calf (cm) 27.5 Left Ankle (cm) 19.5 WC - Nurse 2 - General Ulcer CM Notes Start: 05/15/24 11:29 Freq: Status: Active Protocol: Activity Type Activity Date Activity User E-sign Co-sign Detail Recorded Client Recorded Date Recorded By Document 05/15/24 11:58 [id number] 05/15/24 12:01 DS 05/15/24 11:58 Wound Center Nurse 2 #1 LT HEEL -Time 11:55 -Correct Patient Yes -Correct Side, Site, Position Yes -Correct Procedure Yes -Procedure Performed Yes -Type of Procedure Debridement -Clinical Debridement Subcutaneous -Tissue Removed Subcutaneous -Post Debridement (cm) - Length 0.4 -Post Debridement (cm) - Width 0.5 -Post Debridement (cm) - Depth 0.1 -Total Square (Post) (cm) 0.20 -Area of Debridement (cm) - Length 0.4 -Area of Debridement (cm) - Width 0.5 -Total Square (Area) (cm) 0.20 -Tunneling No -Undermining/Tunneling No -Circular Undermining No -Wound/Ulcer Outcome Not Healed -Ulcer Cleansing Rinsed/ Irrigated with Saline -Foul Odor after Cleansing No -Bioengineered Tissue Yes -Type of Bioengineered Tissue Epifix 18mm Disc -Expiration Date 12/12/28 -Product Lot Number [id number] -Percent Used 100 -Lot number of Saline Used [id number] -Bleeding Controlled with Pressure -Treatment Response Procedure Tolerated Well -Offloading Yes -Type of Offloading Darco Shoe - Left -Debridement - Subq, 1st 20sq cm No -Apply Skin Sub - 1st 25 sq cm - Feet 1 -Epifix 18mm Disc 3 Pain Scale: 0-10 Numeric Is Patient Pain Free? Yes - Nurse 3 - General Ulcer D/C NN Start: 05/15/24 11:29 Freq: Status: Active Protocol: Activity Type Activity Date Activity User E-sign Co-sign Detail Recorded Client Recorded Date Recorded By Document 05/15/24 12:16 [id number] 05/15/24 12:17 RB 05/15/24 12:16 Wound Care Center Nurse 3 #1 LT HEEL -Primary Dressing Applied Silicone Border Foam 4x4 -Silicone Border Foam 4x4 1 LLE -Tubular Bandage Single Layer -Size of Tubigrip Used Size D -Size D ($) 1 Treatment Response Procedure Tolerated Well Pain Scale: 0-10 Numeric Is Patient Pain Free? 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 Patient is hospice care and DNR CCA. Arterial studies demonstrated moderate arterial disease, this was discussed withpatient. Wounds are healing well patient has no acute signs of ischemia we willcontinue local wound care. If wound due to crisis will plan for vascular surgery referral. Patient reports his goal is to get wound healing and then return to ambulation. Patient reports he is not receiving therapy at the facility due to hospice care. Patient wishes to proceed with therapy and attempt to return to ambulation. Patient has left heel ulceration which is not infected and noted to be a Jonas class II. Excisional debridement to heel wound performed using a #5mm dermal curette of all non-vaible tissue down to and including subcutaneous tissue. hemostasis obtained with light compression. topical anesthesia use. patient tolerated procedure well. pre and post debridement measurements documented in nursing notes. We have recommended Sanjeev for nutrient supplementation. Today wound was dressed with 18 mm disc EpiFix graft to the left heel. This wasstabilized with overlying wound veil and Steri-Strips. Entire graft graft was used, no waste. Overlying dry sterile dressing and Tubigrip applied to left lower extremity Patient will follow-up in 1 week Patient is to offload heels bilaterally with Prevalon boots when supine in bed and when sitting in wheelchair. Patient recently had a hip replacement which is why developed pressure ulceration first place. Patient is minimally ambulatory and is unable to get therapy due to DNR CCA status. Plan is for wound healing then return to ambulatory function. At this time I have recommended that the patient does workwith therapy but he is having insurance issues have recommended further discussion with his orthopedic surgeon regarding weightbearing status and ability to perform physical therapy. (2) Non-pressure chronic ulcer of other part of left foot with fat layer exposed: CODE(S): L97.522 - Non-pressure chronic ulcer of other part of left foot with fat layer exposed 05/22/24 1151 <Electronically signed by Edwin Nieto DPM> Cosigner Signature (if applicable): CC: ~ Signed [facility] Work Phone: 1(188) 653-488703-04-2025 Progress note Author Edwin Nieto [facility] Note Date/Time June 11, 2024 11: 59pm [facility] [address] [place] [address] Progress Note - Wound Care 05/15/24 1159 MR#: [id number] Acct: [id number] Name: FRANCISCO THOMAS Rep #:[id number] : 1940 83 From: Edwin Nieto DPM PCP: Dr. Jennifer Watt MD Status:REG RCR Location: History of Present Illness Date of Service: 05/15/24 Chief Complaint: Left posterior heel ulceration History of Wound: This is an 83-year-old male with a pressure ulceration of the left posterior heel. The patient has multiple pre-existing medical problems which are listed herein. The patient has been recently treated by means of a cellular tissue product, EpiFix. Offloading has been by means of a Prevalon boot. The patient is known to be diabetic, and his last hemoglobin A1c was 8.8 on March 29, 2024. The patient is also known to be anemic. Objective Data Objective Data Vital Signs: Vital Signs Temp Pulse Resp BP O2 Del Method 96.5 F L 60 18 133/39 H Room Air 05/15/24 11:05/15/24 11:29 05/15/24 11:29 05/15/24 11:05/15/24 11:29 Oxygen Delivery Method Room Air Physical Exam Narrative Vascular: Dorsalis pedis posterior tibial pulses diminished bilateral lower extremity 1 L4. Some atrophic skin changes noted to bilateral feet with skin thinning and shiny taut appearance. Absent digital hair growth noted. Neurologic: Light touch protective sensation diminished to bilateral lower extremities. Dermatologic: Full-thickness ulceration noted to the plantar left heel with a mixed fibronecrotic base. Postdebridement wound demonstrated a 50-50 granular/necrotic base. No evidence of deep probing undermining or acute signs of infection noted today. 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 Patient uses bracing to left lower extremity via dropfoot assist brace. Debridement Note Debridement Note Post-Debridement Measurements and Additional Note: Post-Debridement Measurements/Treatment - Nurse 1 - General Ulcer Assessment Start: 05/15/24 11:29 Freq: Status: Active Protocol: WC.LOWEXT Activity Type Activity Date Activity User E-sign Co-sign Detail Recorded Client Recorded Date Recorded By Document 05/15/24 11:29 KW [id number] 05/15/24 11:31 KW 05/15/24 11:29 - Today's Visit Information Type of service Follow-up Visit (Physician/VENEER SPLICER ) Arrival Mode Wheelchair Accompanied by Patient Identification Verified (Name & Yes ) Vital Signs Temperature (97.8 F-99.1 F) 96.5 F L Temperature Source Temporal Pulse Rate (60-100) 60 Pulse Location Monitor Respiratory Rate (12-18) 18 Respiratory rate source Observation Oxygen Delivery Method Room Air Blood Pressure (90/60-120/80) 133/39 H Blood Pressure Mean (mm Hg) 70 Source Monitor Position Semi-Fowlers Blood Pressure Location Left Arm History Since Last Visit- (Skip if this is Patient's initial visit) Have you changed medications since your No last visit? Any new allergies or adverse reactions No Had a fall/change in ADL's that may No increase risk of falls Signs or symptoms of abuse and/or No neglect since last visit Have you been in the hospital since your No last visit? Has dressing in place as prescribed Yes Has compression in place as prescribed Yes Has offloadiing in place as prescribed Yes Experienced any changes in pain level or No management Left Footwear Regular Shoe Right Footwear Regular Shoe Pain Scale: 0-10 Numeric Is Patient Pain Free? Yes WC - Nurse 1 - General Ulcer Measurement Start: 05/15/24 11:29 Freq: Status: Active Protocol: Activity Type Activity Date Activity User E-sign Co-sign Detail Recorded Client Recorded Date Recorded By Document 05/15/24 11:29 KW [id number] 05/15/24 11:31 KW 05/15/24 11:29 Wound Center Nurse 1 #1 LT HEEL -Current Size (cm) - Length 1.2 -Current Size (cm) - Width 1.5 -Current Size (cm) - Depth 0 -Total Square Cm 1.80 -Date of Last Picture (Recall this 05/15/24 field) -Exudate Amt Small -Exudate Type Serosanguineous -Wound Margin Distinct, Outline Attached -Granulation Amt Small (1-33%) -Granulation Quality [place]up -Necrosis Amt Large (67-100%) -Necrotic Tissue Type Adherent Slough -Texture (Fauzia-wound Skin Appearance) Assessed -Moisture (Fauzia-wound Skin Appearance) Assessed,Dry/ Scaly -Color (Fauzia-wound Skin Appearance) Assessed -Temperature (Fauzia-wound Skin No Abnormality Appearance) (Pt Warm) -Tenderness on Palpation (Fauzia-wound No Skin Appearance) -Ulcer Cleansing Soap and Water -Foul Odor after Cleansing No -Anesthetic Used 5% Lidocaine Gel Assessment/Plan Assessment/Plan (1) Diabetic polyneuropathy: 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 Patient is hospice care and DNR CCA. Arterial studies demonstrated moderate arterial disease, this was discussed withpatient. Wounds are healing well patient has no acute signs of ischemia we willcontinue local wound care. If wound due to crisis will plan for vascular surgery referral. Patient reports his goal is to get wound healing and then return to ambulation. Patient reports he is not receiving therapy at the facility due to hospice care. Patient wishes to proceed with therapy and attempt to return to ambulation. Patient has left heel ulceration which is not infected and noted to be a Jonas class II. Excisional debridement to heel wound performed using a #5mm dermal curette of all non-vaible tissue down to and including subcutaneous tissue. hemostasis obtained with light compression. topical anesthesia use. patient tolerated procedure well. pre and post debridement measurements documented in nursing notes. We have recommended Sanjeev for nutrient supplementation. Today wound was dressed with 18 mm disc EpiFix graft to the left heel. This wasstabilized with overlying wound veil and Steri-Strips. Entire graft graft was used, no waste. Overlying dry sterile dressing and Tubigrip applied to left lower extremity Patient will follow-up in 1 week Patient is to offload heels bilaterally with Prevalon boots when supine in bed and when sitting in wheelchair. Patient recently had a hip replacement which is why developed pressure ulceration first place. Patient is minimally ambulatory and is unable to get therapy due to DNR CCA status. Plan is for wound healing then return to ambulatory function. At this time I have recommended that the patient does workwith therapy but he is having insurance issues have recommended further discussion with his orthopedic surgeon regarding weightbearing status and ability to perform physical therapy. (2) Non-pressure chronic ulcer of other part of left foot with fat layer exposed: CODE(S): L97.522 - Non-pressure chronic ulcer of other part of left foot with fat layer exposed 05/15/24 1159 <Electronically signed by Edwin Nieto DPM> Cosigner Signature (if applicable): CC: ~ Signed [facility] Work Phone: 1(896) 357-549902-25-2025 Evaluation note* Diagnosis Onset Date Resolution Status Admit Date Atrial fibrillation acute u 2024 11:30am BPH (benign prostatic hyperplasia) acute May 08 11:30am Chronic kidney disease, stag e 3b acute May 08 11:30am Chronic venous stasis acute Apr 11:30am Debility acute May 08, 2024 11:30am Diabetes mellitus acute 2024 11:30am Diabetic polyneuropathy acute F ebruary 2024 11:30am Glaucoma acute May 08, 2024 11:30am Heart failure with preserved ejection fraction acute May 08, 2024 11:30am History of stroke acute 2024 11:30am Hyperlipidemia chronic April 152024 11:30am Iron deficiency acute May 08, 2024 11:30am Left hemiplegia acute May 08, 2024 11:30am Right renal artery stenosis acute May 08, 2024 11:30am Stroke with left hemiparesis acute May 08, 2024 11:30am Type 2 diabetes mellitus wit h hyperglycemia acute May 08 11:30am Unable to ambulate acute 2024 11:30am Chronic anemia chronic April 152024 11:30am Essential hypertension chronic 2024 11:30am Hypertension chronic April 11:30am Iron deficiency anemia chronic 2024 11:30am 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 chronic May 08, 2024 11:30am 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 exposed chronic May 08, 2024 11:30am PAF (paroxysmal atrial fibrillation) chronic May 08 11:30am Peripheral vascular occlusiv e disease chronic May 08 11:30am Polyneuropathy chronic April 152024 11:30am Diabetic polyneuropathy acute 2024 11:00am 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 chronic June 05 11:00am 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 exposed chronic June 05 11:00am 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 chronic June 12 11:35am Chronic kidney disease, stag e 3b acute June 21, 2024 1:57pm Debility acute June 21 1:57pm Diabetic polyneuropathy acute A pril 2024 1:57pm History of diabetes mellitus acute June 21, 2024 1:57pm Stroke with left hemiparesis acute June 21, 2024 1:57pm Type 2 diabetes mellitus wit h hyperglycemia acute June 21, 2024 1:57pm Essential hypertension chronic Ap ril 2024 1:57pm Hyperlipidemia chronic June 1:57pm 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 chronic June 21 1:57pm Polyneuropathy chronic June 1:57pm Fatigue acute July 03 2:13pm Iron deficiency anemia chronic Ap ril 2024 2:13pm Polyneuropathy chronic June 2:13pm History of CVA (cerebrovascular accident) December, inactive July 03, 2024 2:13pm Essential hypertension chronic Ju 2024 2:01pm Hyperlipidemia chronic August 14, 2024 2:01pm PAF (paroxysmal atrial fibrillation) chronic August 14, 2024 2 :01pm [facility] [employer] Work Phone: 1(366) 592-417001-28-2025 Evaluation note* Diagnosis Onset Date Resolution Status Admit Date Diabetic polyneuropathy acute J anuary 2024 3:00pm 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 exposed chronic April 10, 2024 3:00pm Atrial fibrillation acute u [email or web address] 11:30am BPH (benign prostatic hyperplasia) acute May 08, 11:30am Chronic kidney disease, stag e 3b acute May 08 11:30am Chronic venous stasis acute Feb ruary 2024 11:30am Debility acute May 08, 2024 11:30am Diabetes mellitus acute 2024 11:30am Diabetic polyneuropathy acute F ebruary 2024 11:30am Glaucoma acute May 08, 2024 11:30am Heart failure with preserved ejection fraction acute May 08, 2024 11:30am History of stroke acute 2024 11:30am Hyperlipidemia chronic April [id number] 11:30am Iron deficiency acute May 08, 2024 11:30am Left hemiplegia acute May 08, 2024 11:30am Right renal artery stenosis acute May 08, 2024 11:30am Stroke with left hemiparesis acute May 08, 2024 11:30am Type 2 diabetes mellitus wit h hyperglycemia acute May 08 11:30am Unable to ambulate acute 2024 11:30am Chronic anemia chronic April 152024 11:30am Essential hypertension chronic bru2024 11:30am Hypertension chronic April 11:30am Iron deficiency anemia chronic Fe bruary 2024 11:30am 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 chronic May 08, 2024 11:30am 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 exposed chronic May 08, 2024 11:30am PAF (paroxysmal atrial fibrillation) chronic May 08, 11:30am Peripheral vascular occlusiv e disease chronic May 08 11:30am Polyneuropathy chronic April 152024 11:30am Diabetic polyneuropathy acute 2024 11:00am 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 chronic June 05 11:00am 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 exposed chronic June 05 11:00am 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 chronic June 12 11:35am Chronic kidney disease, stag e 3b acute June 21, 2024 1:57pm Debility acute June 21 1:57pm Diabetic polyneuropathy acute A pri2024 1:57pm History of diabetes mellitus acute June 21, 2024 1:57pm Stroke with left hemiparesis acute June 21, 2024 1:57pm Type 2 diabetes mellitus wit h hyperglycemia acute June 21, 2024 1:57pm Essential hypertension chronic Ap ril 2024 1:57pm Hyperlipidemia chronic June 1:57pm 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 chronic June 21 1:57pm Polyneuropathy chronic June 1:57pm Fatigue acute July 03 2:13pm Iron deficiency anemia chronic Ap ril 2024 2:13pm Polyneuropathy chronic June 2:13pm History of CVA (cerebrovascular accident) December, inactive July 03, 2024 2:13pm [facility] Work Phone: 1(851) 433-547901-09-2025 Evaluation note* Diagnosis Onset Date Resolution Status Admit Date Chronic kidney disease, stag e 3b acute March 22 1:50pm Chronic venous stasis acute [facility] 2024 1:50pm Debility acute March 22 1:50pm Glaucoma acute March 22 1:50pm History of stroke acute March 22, 2024 1:50pm Right renal artery stenosis acute March 22, 2024 1:50pm Stroke with left hemiparesis acute March 22, 2024 1:50pm Essential hypertension chronic [facility] 2024 1:50pm Hyperlipidemia chronic March 1:50pm 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 exposed chronic March 22 1:50pm PAF (paroxysmal atrial fibrillation) chronic March 22 1:50pm Peripheral vascular occlusiv e disease chronic March 22 1:50pm Essential hypertension chronic [facility] 2024 1:46pm Hyperlipidemia chronic March [id number] 1:46pm PAF (paroxysmal atrial fibrillation) chronic March 29 1:46pm Diabetic polyneuropathy acute J anuary 2024 3:00pm 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 exposed chronic April 10, 2024 3:00pm Atrial fibrillation acute u [email or web address] 11:30am BPH (benign prostatic hyperplasia) acute May 08 11:30am Chronic kidney disease, stag e 3b acute May 08 11:30am Chronic venous stasis acute Feb ru2024 11:30am Debility acute May 08, 2024 11:30am Diabetes mellitus acute 2024 11:30am Diabetic polyneuropathy acute F ebruary 2024 11:30am Glaucoma acute May 08, 2024 11:30am Heart failure with preserved ejection fraction acute May 08, 2024 11:30am History of stroke acute 2024 11:30am Hyperlipidemia chronic April 152024 11:30am Iron deficiency acute May 08, 2024 11:30am Left hemiplegia acute May 08, 2024 11:30am Right renal artery stenosis acute May 08, 2024 11:30am Stroke with left hemiparesis acute May 08, 2024 11:30am Type 2 diabetes mellitus wit h hyperglycemia acute May 08 11:30am Unable to ambulate acute ry 2024 11:30am Chronic anemia chronic April 152024 11:30am Essential hypertension chronic 2024 11:30am Hypertension chronic April 11:30am Iron deficiency anemia chronic 2024 11:30am 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 chronic May 08, 2024 11:30am 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 exposed chronic May 08, 2024 11:30am PAF (paroxysmal atrial fibrillation) chronic May 08 11:30am Peripheral vascular occlusiv e disease chronic May 08 11:30am Polyneuropathy chronic April 152024 11:30am Diabetic polyneuropathy acute 2024 11:00am 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 chronic June 05 11:00am 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 exposed chronic June 05 11:00am 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 chronic June 12 11:35am Chronic kidney disease, stag e 3b acute June 21, 2024 1:57pm Debility acute June 21 1:57pm Diabetic polyneuropathy acute A pril 2024 1:57pm History of diabetes mellitus acute June 21, 2024 1:57pm Stroke with left hemiparesis acute June 21, 2024 1:57pm Type 2 diabetes mellitus wit h hyperglycemia acute June 21, 2024 1:57pm Essential hypertension chronic Ap 2024 1:57pm Hyperlipidemia chronic June 1:57pm 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 chronic June 21 1:57pm Polyneuropathy chronic June 1:57pm Fatigue acute July 03 2:13pm Iron deficiency anemia chronic Ap ril 2024 2:13pm Polyneuropathy chronic June 2:13pm History of CVA (cerebrovascular accident) December, inactive July 03, 2024 2:13pm [facility] Work Phone: 1(685) 990-703112-17-2024 Evaluation note* Diagnosis Onset Date Resolution Status Admit Date Diabetic polyneuropathy acute D ecember 2023 11:30am 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 exposed chronic February 28, 2024 11:30am COVID-19 virus infection inactive March 07, 2024 2:27pm Generalized weakness deleted Dece [email or web address] 2:27pm Weakness deleted March 07, 2024 2:27pm Chronic kidney disease, stag e 3b acute March 22 1:50pm Chronic venous stasis acute Mar 1:50pm Debility acute March 22, 2 025 1:50pm Glaucoma acute March 22 2 025 1:50pm History of stroke acute March 22, 2024 1:50pm Right renal artery stenosis acute March 22, 2024 1:50pm Stroke with left hemiparesis acute March 22, 2024 1:50pm Essential hypertension chronic [facility] 2024 1:50pm Hyperlipidemia chronic March 1:50pm 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 exposed chronic March 22, 2 025 1:50pm PAF (paroxysmal atrial fibrillation) chronic March 22 1:50pm Peripheral vascular occlusiv e disease chronic March 22 1:50pm Essential hypertension chronic [place] 2024 1:46pm Hyperlipidemia chronic March [id number] 1:46pm PAF (paroxysmal atrial fibrillation) chronic March 29 1:46pm Diabetic polyneuropathy acute J anuary 2024 3:00pm 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 exposed chronic April 10, 2024 3:00pm Atrial fibrillation acute Febru roberto 2024 11:30am BPH (benign prostatic hyperplasia) acute May 08 11:30am Chronic kidney disease, stag e 3b acute May 08 11:30am Chronic venous stasis acute Apr ru2024 11:30am Debility acute May 08, 2024 11:30am Diabetes mellitus acute 2024 11:30am Diabetic polyneuropathy acute F ebruary 2024 11:30am Glaucoma acute May 08, 2024 11:30am Heart failure with preserved ejection fraction acute May 08, 2024 11:30am History of stroke acute 2024 11:30am Hyperlipidemia chronic April 152024 11:30am Iron deficiency acute May 08, 2024 11:30am Left hemiplegia acute May 08, 2024 11:30am Right renal artery stenosis acute May 08, 2024 11:30am Stroke with left hemiparesis acute May 08, 2024 11:30am Type 2 diabetes mellitus wit h hyperglycemia acute May 08 11:30am Unable to ambulate acute 2024 11:30am Chronic anemia chronic April 152024 11:30am Essential hypertension chronic 2024 11:30am Hypertension chronic April 11:30am Iron deficiency anemia chronic 2024 11:30am 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 chronic May 08 11:30am 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 exposed chronic May 08, 2024 11:30am PAF (paroxysmal atrial fibrillation) chronic May 08 11:30am Peripheral vascular occlusiv e disease chronic May 08 11:30am Polyneuropathy chronic April 152024 11:30am Diabetic polyneuropathy acute M 2024 11:00am 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 chronic June 05, 2024 11:00am 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 exposed chronic June 05 11:00am [facility] Work Phone: 1(256) 588-901410-28-2024 [facility]10-03-2024 [facility]10-03-2024 [facility] 07-14-2023 Consult note Author Es Lindquist [facility] July 14, 2023 12:26pm Note Date/Time July 14, 2023 12:26p [facility] Medical Records Department [address] [place] [address] Counseling Note - Pharmacy 07/14/23 1226 MR#: [id number] Acct: [id number] Name: FRANCISCO THOMAS Rep #:[id number] : 1940 82 From: Es Lindquist PCP: Dr. Jennifer Watt MD Status:ADM IN Y Location: [place] [address] Pharmacy [place] Med Reconciliation Pharmacy Service has performed discharge medication reconciliation for this patient upon transfer to TCU. The patient's discharge medication list was reviewed for discrepancies and discrepancies were resolved. Medications at Discharge Home Medications multivitamin,[id number]-[id number] (Complete Multivitamin tablet) 1 tab PO QDAY supplement 03/03/17 Handicap Placard #1 ea 02/12/21 latanoprost 0.005 % eye drops 1 drp EACH EYE .COMPLEX eyes 02/24/22 clopidogrel 75 mg tablet (Plavix) 75 mg PO DAILY blood thinner #90 tabs 06/07/22 pen needle, diabetic 32 gauge x 5/32 (BD Sanaz 2nd Gen Pen Needle) #50 ea 06/17/22 furosemide 40 mg tablet (Lasix) 40 mg PO DAILY water pill #90 tabs 11/26/22 carvedilol 6.25 mg tablet 6.25 mg PO BID heart #60 tabs 12/03/22 pramipexole 0.125 mg tablet 0.125 mg PO QHS parkinsons #90 tabs 12/24/22 insulin lispro 100 unit/mL subcutaneous pen (Humalog KwikPen (U-100) Insulin) 1 unit (0.01 mL) subcut TIDAC PRN SLIDING SCALE #15 mL 01/10/23 sertraline 50 mg tablet 50 mg PO QHS mood #90 tabs 02/23/23 ezetimibe 10 mg tablet (Zetia) 10 mg PO QHS cholesterol #90 tabs 05/04/23 gabapentin 100 mg capsule 100 mg PO BID pain #180 caps 05/04/23 gabapentin 300 mg capsule 300 mg PO 2100 pain #90 caps 05/04/23 finasteride 5 mg tablet 5 mg PO DAILY 07/09/23 amiodarone 200 mg tablet 200 mg PO DAILY #30 tabs 07/14/23 doxazosin 4 mg tablet 4 mg PO QHS #30 tabs 07/14/23 insulin glargine-yfgn 100 unit/mL (3 mL) subcutaneous pen 18 unit (0.18 mL) subcut BREAKFAST #15 mL 07/14/23 07/14/23 1226 <Electronically signed by Es Lindquist > Date _ Es Lindquist Cosigner Signature (if applicable): Date CC: ~ Signed [facility] Work Phone: 1(122) 221-230305-02-2024 Discharge summary Author [facility] July 14, 2023 12:25pm Note Date/Time July 14, 2023 12:25p [facility] Medical Records Department [address] [place] [address] Transfer to [facility] MR#: [id number] Acct: [id number] Name: FRANCISCO THOMAS Rep #:[id number] : 1940 82 From: Jessica Meyer MD PCP: Dr. Jennifer Watt MD Status:ADM IN Certification of patient admission REQUIRED AT TIME OF ADMISSION. I CERTIFY THAT POST-HOSPITAL F SERVICES ARE REQUIRED TO BE GIVEN ON AN IN-PATIENT BASIS BECAUSE OF THE ABOVE NAMED PATIENT'S NEED FOR USP CARE ON A CONTINUING BASIS FOR THE CONDITION(S) FOR WHICH HE/SHE WAS RECEIVING IN-PATIENT HOSPITAL SERVICES PRIOR TO HIS/HER TRANSFER TO THE [facility]. 07/14/23 1225<Electronically signed by Jessica Meyer MD> Diet Diet Order/Speech Therapy: 07/09/23 05:54 Diet: Consistent Carb - Calorie Controlled Food consistency:: Regular Liquid Consistency:: Regular/Thin Dietary Modifications:: Cardiac / Heart Healthy Sodium Restricted Fluid restriction:: 1500 mL How many daily calories?: 1800 calorie Routine Orders/Code Status Enema Type: Fleetz Enema Frequency: Daily PRN Suppository Type: Dulcolax 10mg Suppository Frequency: Daily PRN O2 Frequency: PRN Keep PO Greater than or Equal to (%): 90 Therapies Weight Bearing: Weight bearing as tolerated Physical Therapy: Eval and Treat Occupational Therapy: Eval and Treat Problem/Diagnosis (1) CHF (congestive heart failure): Status: Acute Code(s): I50.9 - Heart failure, unspecified Plan #Acute HFpEF * 2D echo showed EF of 70% per echo, and also showed moderate pericardial effusion * CT chest showed no PE but showed pericardial and pleural effusion * cardiology on board * now on PO lasix * #Bradycardia * patient's heart rate has been vacillating between tachycardia and bradycardia. His beta-wilmer was held but he was going into runs of nonsustained ventricular tachycardia and A-fib. * cardiology on board. On amiodarone and carvedilol. * 2D echo showed EF of 70%. * #Hypokalemia: resolved with replacement. #Debillity: PT/OT on board. Fall precautions. #Elevated ESR and CPR * Etiology is unclear. Rheumatoid factor negative. Uine culture and blood cultures negative * will monitor. * follow up with PCP on outpatient basis. 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 #History of CVA: on clopidogrel, statin and zetia. #Type 2 diabetes mellitus: on lantus 24 units daily. ISS. Accuchecks ACHS. #CKD 3: Cr is down to 1.89 today, with his baseline being 2.05. Will monitor. DVT prophylaxis: heparin Disposition: awaiting placement,pending precert. Allergies/Procedures Done in Hospital Allergies meloxicam [From Mobic] Allergy (Intermediate, Verified 06/16/23 12:51) itching pravastatin [From Pravachol] Adverse Reaction (Mild, Verified 06/16/23 12:51) myalgia cholestyramine Adverse Reaction (Verified 06/16/23 12:51) hypoglycemia Procedures: 2-D Echocardiogram Type of Care/Length of Stay Estimated LOS: Convalescent Care Less Than 30 days Type of Care Needed: Skilled Rehab Potential: Fair Prognosis: Fair Additional Orders/Day of Discharge Day of Discharge: 07/14/23 Dietary and Speech Recommendations Dietitian Recommendations/Changes: Will adjust diet order to 1800 calorie/consistent carbohydrate; cardiac/sodium-restriction with 1500mL/day fluid restriction. ONS if PO fails at meals, will defer for now. Discharge Plan Admission Admit Date/Time: 07/09/23 05:04 Primary Reason for Your Visit: acute HFpEF Attending Provider: Jessica Meyer Primary Care Provider: Jennifer Watt Consulting Providers: Juliane Lui; Shankar Nevarez; Jesús Belcher Instructions Patient Instructions: Coping with Heart Failure Discharge Orders/Prescriptions Prescriptions: New amiodarone 200 mg Tablet 200 mg PO DAILY Qty: 30 2RF insulin glargine-yfgn 100 unit/mL (3 mL) Insulin Pen 18 unit subcut BREAKFAST Qty: 15 2RF doxazosin 4 mg Tablet 4 mg PO QHS Qty: 30 2RF Continued multivitamin,bc-pdjk-ydtdttke tablet tablet 1 tab PO QDAY latanoprost 0.005 % drops 1 drp EACH EYE .COMPLEX Patient Comments: M-W-F Rx Instructions: 1 drp into Each EYE mwf; @hs finasteride 5 mg tablet 5 mg PO DAILY (DME) Handicap Placard See Rx Instructions .Route .MEDSUPPLY Qty: 1 0RF Rx Instructions: Length of time: 5 years clopidogrel [Plavix] 75 mg tablet 75 mg PO DAILY Qty: 90 3RF Hold Instructions: Resume on 01/26/23. (DME) pen needle, diabetic [BD Sanaz 2nd Gen Pen Needle] 32 gauge x 5/32 needle See Rx Instructions .ROUTE .MEDSUPPLY Qty: 50 2RF Rx Instructions: use once daily to adminster insulin as directed. furosemide [Lasix] 40 mg tablet 40 mg PO DAILY Qty: 90 3RF carvedilol 6.25 mg tablet 6.25 mg PO BID Qty: 60 11RF Rx Instructions: must administer with a meal/food pramipexole 0.125 mg tablet 0.125 mg PO QHS Qty: 90 3RF insulin lispro [Humalog KwikPen Insulin] 100 unit/mL insulin pen 1 unit subcut TIDAC PRN (Reason: SLIDING SCALE) Qty: 15 3RF sertraline 50 mg tablet 50 mg PO QHS Qty: 90 3RF ezetimibe [Zetia] 10 mg tablet 10 mg PO QHS Qty: 90 3RF Rx Instructions: take at bedtime gabapentin 100 mg capsule 100 mg PO BID Qty: 180 3RF gabapentin 300 mg capsule 300 mg PO 2100 Qty: 90 3RF Discontinued hydralazine 100 mg tablet 100 mg PO ONCE Qty: 90 3RF Rx Instructions: 100mg in AM, 75mg in afternoon, 75mg in evening insulin glargine [Basaglar KwikPen U-100 Insulin] 100 unit/mL (3 mL) insulin pen 24 unit subcut DAILY amlodipine 10 mg tablet 10 mg PO DAILY Qty: 90 3RF doxazosin 8 mg tablet 8 mg PO QHS Qty: 90 3RF losartan 25 mg tablet 25 mg PO DAILY Qty: 90 3RF hydralazine 25 mg tablet 75 mg PO .COMPLEX Qty: 540 1RF Rx Instructions: 75 mg orally 75mg in afternoon and evening orally.; Referrals / Follow Up: [place] MD [Med Staff - Active Staff] - Within 1 Week Jennifer Watt MD [Primary Care Provider] - Within 1 Week Disposition Disposition (needs filled in before D/C Order can be placed): [facility] (1) CHF (congestive heart failure) Qualifiers: Heart failure type: unspecified Heart failure chronicity: unspecified Qualified Code(s): I50.9 - Heart failure, unspecified 07/14/23 1225 <Electronically signed by Jessica Meyer MD> Cosigner Signature (if applicable): CC: Dr. Shankar Nevarez DO; Dr. Jesús Belcher DO; Dr. Jennifer Watt MD; Dr. Juliane Lui MD ~ [facility] Work Phone: 1(934) 681-149405-01-2024 Progress note Author Jessica [facility] July 13, 2023 2:05pm Note Date/Time July 13, 2023 9:35am [facility] Medical Records Department [address] [place] [address] Progress Note 07/13/23 0931 MR#: [id number] Acct: [id number] Name: FRANCISCO THOMAS Rep #:[id number] : 1940 82 From: Jessica Meyer MD PCP: Dr. Jennifer Watt MD Status:ADM IN Location: [place] [address] Subjective Subjective Patient seen and examined. He was lying comfortably in bed. He had no active complaints. Review of systems otherwise negative. He has remained hemodynamically stable. Objective Data Objective Data Vital Signs: Vital Signs Temp Pulse Resp BP Pulse Ox O2 Del Method O2 Flow Rate 97.5 F L 58 L 16 144/58 H 96 Nasal Cannula 2 07/13/23 08:09 07/13/23 08:09 07/13/23 08:09 07/13/23 08:09 07/13/23 08:09 07/13/23 08:15 07/13/23 08:15 Oxygen Flow Rate (L/min) 2 Oxygen Delivery Method Nasal Cannula Weight: 200 lb 6.403 oz Body Mass Index (BMI) 27.1 Intake & Output: Intake and Output for Last 24 Hours 07/11/23 07/12/23 07/13/23 23:59 23:59 23:59 Intake Total 590 / 590 480 / 480 Output Total 1500 / 1500 2250 / 2250 400 / 400 Balance -910 / -910 -1770 / -1770 -400 / -400 Lab / Micro Data 07/12/23 07:58 07/12/23 07:58 Labs: Laboratory Results - last 24 hr 07/09/23 15:34: KEVIN Screen Negative, CHERELLE-1 Antibody Not Reportable, SS-A/Ro IgG Antibody Not Reportable, SS-B/La IgG Antibody Not Reportable, Sm (Santiago) Antibody Not Reportable, [employer]IAN Antibody Not Reportable, Scl-70 Scleroderma Ab Not Reportable, Double Strand DNA Ab Not Reportable, Centromere B Antibody Not Reportable 07/12/23 11:17: POC Glucose 204 H 07/12/23 16:32: POC Glucose 161 H 07/12/23 21:15: POC Glucose 170 H 07/13/23 06:26: POC Glucose 123 H Micro: Microbiology 07/10/23 05:02 Urine, Clean Catch Urine Culture - Final Culture exhibits no growth. 07/10/23 05:02 Urine, Clean Catch Legionella Antigen - Final 07/10/23 05:02 Urine, Clean Catch Streptococcus pneumoniae Antigen (M - Final 07/09/23 15:50 Blood Culture (Wb) - Anticubital Right Blood Culture - Preliminary No growth in 48 hours. 07/09/23 15:30 Blood Culture (Wb) - Anticubital Right Blood Culture - Preliminary No growth in 48 hours. 07/09/23 04:00 Mucosa - Nasopharyngeal SARS-CoV-2, Influenza & RSV (PCR) - Final 07/09/23 04:18 Stool Stool Occult Blood (DAX) - Final Physical Exam Const alert, oriented x3, no apparent distress, average body habitus and well nourished General Appearance: cooperative, comfortable and well developed HEENT normocephalic, head/scalp atraumatic, hearing grossly normal bilaterally, nasal mucous membranes and turbinates normal, moist oral mucous membranes and oropharynx normal Eyes PERRL, EOMs intact bilaterally and conjunctivae normal Neck full ROM, no lymphadenopathy, supple and no JVD Lymph Lymphatic: no lymphadenopathy noted and no lymphedema noted Chest inspection of chest normal Resp normal respiratory effort, normal air movement, no retractions and clear to auscultation bilaterally Resp Narrative: on 2L of oxygen by nasal canula Cardio regular rate, regular rhythm, S1 normal heart sound, S2 normal heart sound, no murmurs and peripheral pulses 2+ throughout GI normal to inspection, nondistended, normoactive bowel sounds, soft to palpation,non-tender and non-distended Back/Spine normal ROM Extremity normal to inspection, full ROM, normal capillary refill, no clubbing, cyanosis or edema, no calf tenderness and no pedal edema General Extremity: no tenderness to palpation of joints or extremities Skin no rashes or lesions noted General Skin Exam: no breakdown and turgor normal Neuro CN's II-XII intact bilaterally, moves all extremities, no focal motor deficits, no sensory deficits noted and deep tendon reflexes 2+ bilaterally Sensorium / Orientation: awake and alert Speech: speech normal Motor Exam: strength 5/5 throughout and general weakness Psych mental status grossly normal, thought process normal, cooperative and affect normal Appearance: appropriate Assessment & Plan Assessment/Plan (1) CHF (congestive heart failure): QUALIFIERS: Heart failure type: unspecified Heart failure chronicity: unspecified Qualified Code(s): I50.9 - Heart failure, unspecified PLAN: Plan #Acute HFpEF * 2D echo showed EF of 70% per echo, and also showed moderate pericardial effusion * CT chest showed no PE but showed pericardial and pleural effusion * cardiology on board * now on PO lasix * #Bradycardia * patient's heart rate has been vacillating between tachycardia and bradycardia. His beta-wilmer was held but he was going into runs of nonsustained ventricular tachycardia and A-fib. * cardiology on board. On amiodarone and carvedilol. * 2D echo showed EF of 70%. * #Hypokalemia: resolved with replacement. #Debillity: PT/OT on board. Fall precautions. #Elevated ESR and CPR * Etiology is unclear. Rheumatoid factor negative. Uine culture and blood cultures negative * will monitor. * follow up with PCP on outpatient basis. 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 #History of CVA: on clopidogrel, statin and zetia. #Type 2 diabetes mellitus: on lantus 24 units daily. ISS. Accuchecks ACHS. #CKD 3: Cr is down to 1.89 today, with his baseline being 2.05. Will monitor. DVT prophylaxis: heparin Disposition: awaiting placement,pending precert. Charges/Coding Visit Charges Inpatient E&M: 83362 Subs Hosp L2 07/13/23 1405 <Electronically signed by Jessica Meyer MD> Jessica Meyer MD Cosigner Signature (if applicable): CC: ~ Signed [facility] Work Phone: [phone] 975-661904-30-2024 Progress note Author [facility] July 12, 2023 4:01pm Note Date/Time July 12, 2023 12: 08pm [facility] Medical Records Department [address] [place] [address] Progress Note 07/12/23 1205 MR#: [id number] Acct: [id number] Name: FRANCISCO THOMAS Rep #:[id number] : 1940 82 From: Jessica Meyer MD PCP: Dr. Jennifer Watt MD Status:ADM IN Location: [place] [address] Subjective Subjective Patient seen and examined. He had no active complaints. He has not had any bradycardia overnight. Review of systems is otherwise negative. He has remained hemodynamically stable. Objective Data Objective Data Vital Signs: Vital Signs Temp Pulse Resp BP Pulse Ox O2 Del Method O2 Flow Rate 98.1 F 73 18 147/60 H 93 Nasal Cannula 2 07/12/23 08:40 07/12/23 08:40 07/12/23 08:40 07/12/23 08:40 07/12/23 08:40 07/12/23 08:40 07/12/23 08:30 Oxygen Flow Rate (L/min) 2 Oxygen Delivery Method Nasal Cannula Weight: 202 lb 6.15 oz Body Mass Index (BMI) 27.4 Intake & Output: Intake and Output for Last 24 Hours 07/10/23 07/11/23 07/12/23 23:59 23:59 23:59 Intake Total 1240 / 1590 590 / 590 240 / 240 Output Total 1950 / 2250 1500 / 1500 1450 / 1450 Balance -710 / -660 -910 / -910 -1210 / -1210 Lab / Micro Data 07/12/23 07:58 07/12/23 07:58 Labs: Laboratory Results - last 24 hr 07/09/23 15:34: KEVIN Screen Negative 07/11/23 16:20: POC Glucose 192 H 07/11/23 21:22: POC Glucose 181 H 07/12/23 06:15: POC Glucose 152 H 07/12/23 07:58: WBC 9.8, RBC 2.90 L, Hgb 8.7 L, Hct 27.1 L, MCV 93.4, MCH 30.0, MCHC 32.1, RDW Std Deviation 47.4 H, RDW Coeff of Cait 13.9, Plt Count 311, MPV 9.8, Immature Gran % (Auto) 0.600, Neut % (Auto) 71.5 H, Lymph % (Auto) 13.2 L, [place] % (Auto) 10.6 H, Eos % (Auto) 3.6, Baso % (Auto) 0.5, Absolute Neuts (auto)7.0, Absolute Lymphs (auto) 1.29, Nucleated RBC % 0, Sodium 142, Potassium 3.4 L, Chloride 105, Carbon Dioxide 34.0 H, Anion Gap 3 L, BUN 57 H, Creatinine 1.89 H, Estim Creat Clear Calc 32.50, Est GFR (MDRD) Af Amer 44 L, Est GFR (MDRD) Non-Af 36 L, BUN/Creatinine Ratio 30.2 H, Glucose 140 H, Calcium 8.9 Micro: Microbiology 07/10/23 05:02 Urine, Clean Catch Urine Culture - Final Culture exhibits no growth. 07/10/23 05:02 Urine, Clean Catch Legionella Antigen - Final 07/10/23 05:02 Urine, Clean Catch Streptococcus pneumoniae Antigen (M - Final 07/09/23 15:50 Blood Culture (Wb) - Anticubital Right Blood Culture - Preliminary No growth in 48 hours. 07/09/23 15:30 Blood Culture (Wb) - Anticubital Right Blood Culture - Preliminary No growth in 48 hours. 07/09/23 04:00 Mucosa - Nasopharyngeal SARS-CoV-2, Influenza & RSV (PCR) - Final 07/09/23 04:18 Stool Stool Occult Blood (DAX) - Final Physical Exam Const alert, oriented x3, no apparent distress, average body habitus and well nourished General Appearance: cooperative, comfortable and well developed HEENT normocephalic, head/scalp atraumatic, hearing grossly normal bilaterally, moist oral mucous membranes and oropharynx normal Eyes PERRL, EOMs intact bilaterally and conjunctivae normal Neck full ROM, no lymphadenopathy, supple and no JVD Lymph Lymphatic: no lymphadenopathy noted and no lymphedema noted Chest inspection of chest normal Resp normal respiratory effort, normal air movement, no retractions and clear to auscultation bilaterally Resp Narrative: on 2L of oxygen by nasal canula Cardio regular rate, regular rhythm, S1 normal heart sound, S2 normal heart sound, no murmurs and peripheral pulses 2+ throughout GI normal to inspection, nondistended, normoactive bowel sounds, soft to palpation,non-tender and non-distended Back/Spine normal ROM Extremity normal to inspection, full ROM, normal capillary refill, no clubbing, cyanosis or edema, no calf tenderness and no pedal edema General Extremity: no tenderness to palpation of joints or extremities Skin no rashes or lesions noted General Skin Exam: no breakdown and turgor normal Neuro CN's II-XII intact bilaterally, moves all extremities, no focal motor deficits, no sensory deficits noted and deep tendon reflexes 2+ bilaterally Sensorium / Orientation: awake and alert Speech: speech normal Motor Exam: strength 5/5 throughout and general weakness Psych mental status grossly normal, thought process normal, cooperative and affect normal Appearance: appropriate Assessment & Plan Assessment/Plan (1) CHF (congestive heart failure): QUALIFIERS: Heart failure type: unspecified Heart failure chronicity: unspecified Qualified Code(s): I50.9 - Heart failure, unspecified PLAN: Plan #Acute HFpEF * 2D echo showed EF of 70% per echo, and also showed moderate pericardial effusion * CT chest showed no PE but showed pericardial and pleural effusion * cardiology on board * on IV lasix 40mg bid * will switch to PO lasix today. * #Bradycardia * patient's heart rate has been vacillating between tachycardia and bradycardia. His beta-wilmer was held but he was going into runs of nonsustained ventricular tachycardia and A-fib. * cardiology on board. On amiodarone * 2D echo showed EF of 70%. * #Hypokalemia: potassium is 3.4. Will replace and trend. #Debillity: PT/OT on board. Fall precautions. #Elevated ESR and CPR * Etiology is unclear. Rheumatoid factor negative. Uine culture and blood cultures negative * will monitor. 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 #History of CVA: on clopidogrel, statin and zetia. #Type 2 diabetes mellitus: on lantus 24 units daily. ISS. Accuchecks ACHS. #CKD 3: Cr is down to 1.89 today, with his baseline being 2.05. Will monitor. DVT prophylaxis: heparin Charges/Coding Visit Charges Inpatient E&M: 14805 Subs Hosp L2 07/12/23 1601 <Electronically signed by Jessica Meyer MD> Jessica Meyer MD Cosigner Signature (if applicable): CC: ~ Signed [facility] Work Phone: [phone] Progress note Author Juliane Lui [facility] July 12, 2023 2:46pm Note Date/Time July 12, 2023 2:4 6pm [facility] Medical Records Department [address] [place] [address] Progress Note - Cardiology 07/12/23 1443 MR#: [id number] Acct: [id number] Name: FRANCISCO THOMAS Rep #:[id number] : 1940 82 From: Juliane mane MD PCP: Dr. Jennifer Watt MD Status:ADM IN Location: [place] [address] 1 Subjective Subjective Patient continues to improve and feel better Objective Data Vital Signs: Vital Signs Temp Pulse Resp BP Pulse Ox O2 Del Method O2 Flow Rate 98.1 F 53 L 16 134/59 H 95 Nasal Cannula 2 07/12/23 14:40 07/12/23 14:40 07/12/23 14:40 07/12/23 14:40 07/12/23 14:40 07/12/23 14:40 07/12/23 14:40 Oxygen Flow Rate (L/min) 2 Oxygen Delivery Method Nasal Cannula Weight: 202 lb 6.15 oz Body Mass Index (BMI) 27.4 Intake & Output: Intake and Output for Last 24 Hours 07/10/23 07/11/23 07/12/23 23:59 23:59 23:59 Intake Total 1240 / 1590 590 / 590 240 / 240 Output Total 1950 / 2250 1500 / 1500 1450 / 1450 Balance -710 / -660 -910 / -910 -1210 / -1210 Lab / Micro Data 07/12/23 07:58 07/12/23 07:58 Labs: Laboratory Results - last 24 hr 07/09/23 15:34: KEVIN Screen Negative 07/11/23 16:20: POC Glucose 192 H 07/11/23 21:22: POC Glucose 181 H 07/12/23 06:15: POC Glucose 152 H 07/12/23 07:58: WBC 9.8, RBC 2.90 L, Hgb 8.7 L, Hct 27.1 L, MCV 93.4, MCH 30.0, MCHC 32.1, RDW Std Deviation 47.4 H, RDW Coeff of Cait 13.9, Plt Count 311, MPV 9.8, Immature Gran % (Auto) 0.600, Neut % (Auto) 71.5 H, Lymph % (Auto) 13.2 L, [place] % (Auto) 10.6 H, Eos % (Auto) 3.6, Baso % (Auto) 0.5, Absolute Neuts (auto)7.0, Absolute Lymphs (auto) 1.29, Nucleated RBC % 0, Sodium 142, Potassium 3.4 L, Chloride 105, Carbon Dioxide 34.0 H, Anion Gap 3 L, BUN 57 H, Creatinine 1.89 H, Estim Creat Clear Calc 32.50, Est GFR (MDRD) Af Amer 44 L, Est GFR (MDRD) Non-Af 36 L, BUN/Creatinine Ratio 30.2 H, Glucose 140 H, Calcium 8.9 07/12/23 11:17: POC Glucose 204 H Micro: Microbiology 07/10/23 05:02 Urine, Clean Catch Urine Culture - Final Culture exhibits no growth. 07/10/23 05:02 Urine, Clean Catch Legionella Antigen - Final 07/10/23 05:02 Urine, Clean Catch Streptococcus pneumoniae Antigen (M - Final 07/09/23 15:50 Blood Culture (Wb) - Anticubital Right Blood Culture - Preliminary No growth in 48 hours. 07/09/23 15:30 Blood Culture (Wb) - Anticubital Right Blood Culture - Preliminary No growth in 48 hours. Cardiology Labs/Tests 07/12/23 07:58: WBC 9.8, RBC 2.90 L, Hgb 8.7 L, Hct 27.1 L, MCV 93.4, MCH 30.0, MCHC 32.1, Plt Count 311, MPV 9.8, Immature Gran % (Auto) 0.600, Neut % (Auto) 71.5 H, Lymph % (Auto) 13.2 L, [place] % (Auto) 10.6 H, Eos % (Auto) 3.6, Baso % (Auto) 0.5, Absolute Neuts (auto) 7.0, Nucleated RBC % 0, Sodium 142, Potassium 3.4 L, Chloride 105, Carbon Dioxide 34.0 H, Anion Gap 3 L, BUN 57 H, Creatinine 1.89 H, Est GFR (MDRD) Af Amer 44 L, Est GFR (MDRD) Non-Af 36 L, BUN/Creatinine Ratio 30.2 H, Glucose 140 H, Calcium 8.9 Rhythm: EKG: ECHO: Stress Test: Cardiac Cath: PCI: CT Surgery: Holter monitor: EPS: PPM: CXR: Chest CT Scan: Physical Exam Const alert HEENT normocephalic Eyes no scleral icterus Assessment & Plan Assessment/Plan (1) Bradycardia: PLAN: The bradycardia appears to have been mainly when he was converting from A- fib to sinus rhythm. So far he is tolerating current regimen well without significant episodes of bradycardia. No further significant runs of A-fib with RVR. Will sign off at this time. 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 (2) CHF (congestive heart failure): QUALIFIERS: Heart failure type: unspecified Heart failure chronicity: unspecified Qualified Code(s): I50.9 - Heart failure, unspecified PLAN: Continue current medications. Charges/Coding Visit Charges Inpatient E&M: 66486 Subs Hosp L1 07/12/23 1446 <Electronically signed by Juliane Lui MD> Cosigner Signature (if applicable): CC: ~ Signed [facility] Work Phone: [phone]) 820-380304-29-2024 Progress note Author Juliane Lui [facility] July 11, 2023 2:39pm Note Date/Time July 11, 2023 2:3 8pm [facility] Medical Records Department [address] [place] [address] Progress Note - Cardiology 07/11/23 1437 MR#: [id number] Acct: [id number] Name: FRANCISCO THOMAS Rep #:[id number] : 1940 82 From: Juliane mane MD PCP: Dr. Jennifer Watt MD Status:ADM IN Location: [place] [address] Subjective Subjective Patient states that he is feeling better today. Denies any chest pain, palpitations, dizziness, syncope Objective Data Vital Signs: Vital Signs Temp Pulse Resp BP Pulse Ox O2 Del Method O2 Flow Rate 98.3 F 67 18 142/62 H 92 Nasal Cannula 2 07/11/23 10:07/11/23 10:07/11/23 10:07/11/23 10:07/11/23 10:07/11/23 10:07/11/23 13:38 Oxygen Flow Rate (L/min) 2 Oxygen Delivery Method Nasal Cannula Weight: 203 lb 4.259 oz Body Mass Index (BMI) 27.6 Intake & Output: Intake and Output for Last 24 Hours 07/09/23 07/10/23 07/11/23 23:59 23:59 23:59 Intake Total 2540 / 2540 1240 / 1590 590 / 590 Output Total 2700 / 2700 1950 / 2250 1050 / 1050 Balance -160 / -160 -710 / -660 -460 / -460 Lab / Micro Data 07/11/23 06:41 07/11/23 06:41 Labs: Laboratory Results - last 24 hr 07/10/23 06:20: Cortisol 31.90 H 07/10/23 16:55: POC Glucose 170 H 07/10/23 22:24: POC Glucose 211 H 07/11/23 06:36: POC Glucose 152 H 07/11/23 06:41: WBC 10.7, RBC 2.75 L, Hgb 8.3 L, Hct 25.6 L, MCV 93.1, MCH 30.2,MCHC 32.4, RDW Std Deviation 46.8 H, RDW Coeff of Cait 14.0, Plt Count 286, MPV 10.0, Immature Gran % (Auto) 0.500, Neut % (Auto) 73.4 H, Lymph % (Auto) 12.4 L,[place] % (Auto) 11.8 H, Eos % (Auto) 1.3, Baso % (Auto) 0.6, Absolute Neuts (auto)7.9 H, Absolute Lymphs (auto) 1.33, Nucleated RBC % 0, Sodium 139, Potassium 3.4L, Chloride 102, Carbon Dioxide 31.0, Anion Gap 6, BUN 56 H, Creatinine 1.93 H, Estim Creat Clear Calc 31.83, Est GFR (MDRD) Af Amer 43 L, Est GFR (MDRD) Non-Af35 L, BUN/Creatinine Ratio 29.0 H, Glucose 151 H, Calcium 8.5 07/11/23 11:33: POC Glucose 213 H Micro: Microbiology 07/09/23 15:50 Blood Culture (Wb) - Anticubital Right Blood Culture - Preliminary No growth in 48 hours. 07/09/23 15:30 Blood Culture (Wb) - Anticubital Right Blood Culture - Preliminary No growth in 48 hours. Cardiology Labs/Tests 07/11/23 06:41: WBC 10.7, RBC 2.75 L, Hgb 8.3 L, Hct 25.6 L, MCV 93.1, MCH 30.2,MCHC 32.4, Plt Count 286, MPV 10.0, Immature Gran % (Auto) 0.500, Neut % (Auto) 73.4 H, Lymph % (Auto) 12.4 L, [place] % (Auto) 11.8 H, Eos % (Auto) 1.3, Baso % (Auto) 0.6, Absolute Neuts (auto) 7.9 H, Nucleated RBC % 0, Sodium 139, Potassium 3.4 L, Chloride 102, Carbon Dioxide 31.0, Anion Gap 6, BUN 56 H, Creatinine 1.93 H, Est GFR (MDRD) Af Amer 43 L, Est GFR (MDRD) Non-Af 35 L, BUN/Creatinine Ratio 29.0 H, Glucose 151 H, Calcium 8.5 Rhythm: EKG: ECHO: Stress Test: Cardiac Cath: PCI: CT Surgery: Holter monitor: EPS: PPM: CXR: Chest CT Scan: Physical Exam Const alert HEENT normocephalic Eyes no scleral icterus Resp normal respiratory effort Assessment & Plan Assessment/Plan (1) Bradycardia: PLAN: The bradycardia appears to have been mainly when he was converting from A- fib to sinus rhythm. So far he is tolerating current regimen well without significant episodes of bradycardia. No further significant runs of A-fib with RVR since last night. (2) CHF (congestive heart failure): QUALIFIERS: Heart failure type: unspecified Heart failure chronicity: unspecified Qualified Code(s): I50.9 - Heart failure, unspecified PLAN: Continue current medications. Charges/Coding Visit Charges Inpatient E&M: 18749 Subs Hosp L2 07/11/23 1439 <Electronically signed by Juliane Lui MD> Cosigner Signature (if applicable): CC: ~ Signed [facility] Work Phone: [phone]) 351-215004-29-2024 Progress note Author Jessica Meyer [facility] July 11, 2023 2:38pm Note Date/Time July 11, 2023 1:1 8pm [facility] Medical Records Department [address] [place] [address] Progress Note 07/11/23 1305 MR#: [id number] Acct: [id number] Name: FRANCISCO THOMAS Rep #:[id number] : 1940 82 From: Jessica Meyer MD PCP: Dr. Jennifer Watt MD Status:ADM IN Location: [place] [address] Subjective Subjective Patient seen and examined. He was resting calmly in bed. He had no active complaints. HE denied any dizziness, palpitations, chest pain, nausea, vomiting or any other symptoms. Review of systems is otherwise negative. Objective Data Objective Data Vital Signs: Vital Signs Temp Pulse Resp BP Pulse Ox O2 Del Method O2 Flow Rate 98.3 F 67 18 142/62 H 92 Nasal Cannula 2 07/11/23 10:23 07/11/23 10:23 07/11/23 10:23 07/11/23 10:23 07/11/23 10:07/11/23 10:07/11/23 10:23 Oxygen Flow Rate (L/min) 2 Oxygen Delivery Method Nasal Cannula Weight: 203 lb 4.259 oz Body Mass Index (BMI) 27.6 Intake & Output: Intake and Output for Last 24 Hours 07/09/23 07/10/23 07/11/23 23:59 23:59 23:59 Intake Total 2540 / 2540 1240 / 1590 590 / 590 Output Total 2700 / 2700 1950 / 2250 1050 / 1050 Balance -160 / -160 -710 / -660 -460 / -460 Lab / Micro Data 07/11/23 06:41 07/11/23 06:41 Labs: Laboratory Results - last 24 hr 07/10/23 06:20: Cortisol 31.90 H 07/10/23 16:55: POC Glucose 170 H 07/10/23 22:24: POC Glucose 211 H 07/11/23 06:36: POC Glucose 152 H 07/11/23 06:41: WBC 10.7, RBC 2.75 L, Hgb 8.3 L, Hct 25.6 L, MCV 93.1, MCH 30.2,MCHC 32.4, RDW Std Deviation 46.8 H, RDW Coeff of Cait 14.0, Plt Count 286, MPV 10.0, Immature Gran % (Auto) 0.500, Neut % (Auto) 73.4 H, Lymph % (Auto) 12.4 L,[place] % (Auto) 11.8 H, Eos % (Auto) 1.3, Baso % (Auto) 0.6, Absolute Neuts (auto)7.9 H, Absolute Lymphs (auto) 1.33, Nucleated RBC % 0, Sodium 139, Potassium 3.4L, Chloride 102, Carbon Dioxide 31.0, Anion Gap 6, BUN 56 H, Creatinine 1.93 H, Estim Creat Clear Calc 31.83, Est GFR (MDRD) Af Amer 43 L, Est GFR (MDRD) Non-Af35 L, BUN/Creatinine Ratio 29.0 H, Glucose 151 H, Calcium 8.5 07/11/23 11:33: POC Glucose 213 H Micro: Microbiology 07/09/23 15:50 Blood Culture (Wb) - Anticubital Right Blood Culture - Preliminary No growth in 48 hours. 07/09/23 15:30 Blood Culture (Wb) - Anticubital Right Blood Culture - Preliminary No growth in 48 hours. 07/10/23 05:02 Urine, Clean Catch Legionella Antigen - Final 07/10/23 05:02 Urine, Clean Catch Streptococcus pneumoniae Antigen (M - Final 07/09/23 04:00 Mucosa - Nasopharyngeal SARS-CoV-2, Influenza & RSV (PCR) - Final 07/09/23 04:18 Stool Stool Occult Blood (DAX) - Final Physical Exam Const alert, oriented x3, no apparent distress and well nourished General Appearance: cooperative and well developed HEENT normocephalic, head/scalp atraumatic, moist oral mucous membranes and oropharynxnormal Eyes PERRL and EOMs intact bilaterally Neck no lymphadenopathy, supple and no JVD Lymph Lymphatic: no lymphadenopathy noted and no lymphedema noted Resp normal respiratory effort, normal air movement and clear to auscultation bilaterally Cardio regular rate, regular rhythm, S1 normal heart sound, S2 normal heart sound and no murmurs GI normal to inspection, nondistended, normoactive bowel sounds, soft to palpation,non-tender and non-distended Extremity normal capillary refill, no clubbing, cyanosis or edema and no calf tenderness General Extremity: no tenderness to palpation of joints or extremities Skin General Skin Exam: no breakdown and turgor normal Neuro CN's II-XII intact bilaterally, no focal motor deficits, no sensory deficits noted and deep tendon reflexes 2+ bilaterally Motor Exam: strength 5/5 throughout and general weakness Psych thought process normal, cooperative and affect normal Appearance: appropriate Assessment & Plan Assessment/Plan (1) CHF (congestive heart failure): QUALIFIERS: Heart failure type: unspecified Heart failure chronicity: unspecified Qualified Code(s): I50.9 - Heart failure, unspecified PLAN: Plan #Acute HFpEF * 2D echo showed EF of 70% per echo, and also showed moderate pericardial effusion * CT chest showed no PE but showed pericardial and pleural effusion * cardiology on board * #Bradycardia * patient's heart rate has been vacillating between tachycardia and bradycardia. His beta-wilmer was held but he was going into runs of nonsustained ventricular tachycardia and A-fib. * cardiology on board. On amiodarone * 2D echo showed EF of 70%. * #Hypokalemia: potassium is 3.4. Will replace and trend. #Debillity: PT/OT on board. Fall precautions. #Elevated ESR and CPR * Etiology is unclear. Rheumatoid factor neative. Uine culure and blood cultures negative * will monitor. 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 #History of CVA: on clopidogrel, statin and zetia. #Type 2 diabetes mellitus: on lantus 24 units daily. ISS. Accuchecks ACHS. #CKD 3: Cr is 1.93, with his baseline being 2.05. Will monitor. DVT prophylaxis: heparin Charges/Coding Visit Charges Inpatient E&M: 16522 Subs Hosp L2 07/11/23 1438 <Electronically signed by Jessica Meyer MD> Jessica Meyer MD Cosigner Signature (if applicable): CC: ~ Signed [facility] Work Phone: [phone]) [phone] Progress note Author Juliane Lui [facility] July 11, 2023 10:45am Note Date/Time July 10, 2023 3:0 5pm [facility] Medical Records Department [address] [place] [address] Progress Note - Cardiology 07/10/23 1502 MR#: [id number] Acct: [id number] Name: FRANCISCO THOMAS Rep #:[id number] : 1940 82 From: Juliane mane MD PCP: Dr. Jennifer Watt MD Status:ADM IN Location: [place] [address] Subjective Subjective Patient has some cough and shortness of breath. Denies any chest pain. No palpitations, dizziness or syncope Objective Data Telemetry reveals runs of A-fib and also short runs of nonsustained V. tach. Vital Signs: Vital Signs Temp Pulse Resp BP Pulse Ox O2 Del Method O2 Flow Rate 98 F 67 15 123/66 H 94 Nasal Cannula 2 07/10/23 11:07/10/23 11:07/10/23 11:07/10/23 11:07/10/23 11:07/10/23 11:07/10/23 12:24 Oxygen Flow Rate (L/min) 2 Oxygen Delivery Method Nasal Cannula Weight: 204 lb 9.423 oz Body Mass Index (BMI) 27.7 Intake & Output: Intake and Output for Last 24 Hours 07/08/23 07/09/23 07/10/23 23:59 23:59 23:59 Intake Total 2540 / 2540 760 / 760 Output Total 2700 / 2700 1450 / 1450 Balance -160 / -160 -690 / -690 Lab / Micro Data 07/11/23 06:41 07/11/23 06:41 Labs: Laboratory Results - last 24 hr 07/09/23 15:34: Rheumatoid Factor < 10.0 07/09/23 17:01: POC Glucose 172 H 07/09/23 22:09: POC Glucose 164 H 07/10/23 05:02: Urine Color Yellow, Urine Clarity Clear, Urine pH 6.0, Ur Specific [place] 1.015, Urine Protein 30 H, Urine Glucose (UA) Normal, Urine Ketones Negative, Urine Occult Blood 10 H, Urine Nitrite Negative, Urine Bilirubin Negative, Urine Urobilinogen Normal, Ur Leukocyte Esterase Negative, Urine RBC 0 SEEN, Urine WBC 0 SEEN, Ur Squamous Epith Cells 0 SEEN, Urine Bacteria 0 SEEN, Urine Mucus 0 SEEN 07/10/23 06:20: WBC 10.4, RBC 2.92 L, Hgb 9.0 L, Hct 27.5 L, MCV 94.2 H, MCH 30.8, MCHC 32.7, RDW Std Deviation 48.0 H, RDW Coeff of Cait 14.1, Plt Count 309,MPV 10.3, Sodium 139, Potassium 3.6, Chloride 102, Carbon Dioxide 30.0, Anion Gap 7, BUN 56 H, Creatinine 2.05 H, Estim Creat Clear Calc 29.97, Est GFR (MDRD)Af Amer 40 L, Est GFR (MDRD) Non-Af 33 L, BUN/Creatinine Ratio 27.3 H, Glucose 172 H, Calcium 8.5 07/10/23 06:41: POC Glucose 169 H 07/10/23 11:19: POC Glucose 208 H Micro: Microbiology 07/10/23 05:02 Urine, Clean Catch Legionella Antigen - Final 07/10/23 05:02 Urine, Clean Catch Streptococcus pneumoniae Antigen (M - Final Cardiology Labs/Tests 07/10/23 05:02: Urine Color Yellow, Urine Clarity Clear, Urine pH 6.0, Ur Specific [place] 1.015, Urine Protein 30 H, Urine Glucose (UA) Normal, Urine Ketones Negative, Urine Occult Blood 10 H, Urine Nitrite Negative, Urine Bilirubin Negative, Urine Urobilinogen Normal, Ur Leukocyte Esterase Negative, Urine RBC 0 SEEN, Urine WBC 0 SEEN 07/10/23 06:20: WBC 10.4, RBC 2.92 L, Hgb 9.0 L, Hct 27.5 L, MCV 94.2 H, MCH 30.8, MCHC 32.7, Plt Count 309, MPV 10.3, Sodium 139, Potassium 3.6, Chloride 102, Carbon Dioxide 30.0, Anion Gap 7, BUN 56 H, Creatinine 2.05 H, Est GFR (MDRD) Af Amer 40 L, Est GFR (MDRD) Non-Af 33 L, BUN/Creatinine Ratio 27.3 H, Glucose 172 H, Calcium 8.5 Rhythm: EKG: ECHO: Stress Test: Cardiac Cath: PCI: CT Surgery: Holter monitor: EPS: PPM: CXR: Chest CT Scan: Physical Exam Const alert and oriented x3 HEENT normocephalic Eyes no scleral icterus Resp normal respiratory effort Assessment & Plan Assessment/Plan (1) Bradycardia: PLAN: Patient's beta-wilmer has been on hold but he has been going into runs ofnonsustained V. tach and A-fib. Will restart the beta-wilmer and see if he hassignificant bradycardia. If he does he may need a pacemaker. (2) CHF (congestive heart failure): QUALIFIERS: Heart failure chronicity: unspecified Heart failure type: unspecified Qualified Code(s): I50.9 - Heart failure, unspecified PLAN: Patient's creatinine has not gone up with Lasix. Okay to continue Lasix at this time. Charges/Coding Visit Charges Inpatient E&M: 53186 Subs Hosp L1 07/11/23 1045 <Electronically signed by Juliane Lui MD> Cosigner Signature (if applicable): CC: ~ Signed [facility] Work Phone: [phone]) [phone] Progress note Author Jesús Belcher [facility] July 10, 2023 1:39pm Note Date/Time July 10, 2023 9:0 7am [facility] Medical Records Department [address] [facility] [place] [address] Progress Note - Hospitalist 07/10/23 0900 MR#: [id number] Acct: [id number] Name: FRANCISCO THOMAS Rep #:[id number] : 1940 82 From: Jesús Belcher DO PCP: Dr. Jennifer Watt MD Status:ADM IN Location: [place] [address] Reason for Visit Reason for Visit: Diagnoses Heart failure, unspecified (07/09/23) Bradycardia, unspecified (07/09/23) Hypoxemia (07/09/23) Weakness (07/09/23) Subjective Subjective No shortness of breath. Objective Data Objective Data Vital Signs: Vital Signs Temp Pulse Resp BP Pulse Ox O2 Del Method O2 Flow Rate 36.8 C 132 H 18 103/65 90 Nasal Cannula 2 07/10/23 07:28 07/10/23 07:28 07/10/23 07:28 07/10/23 07:28 07/10/23 08:17 07/10/23 08:17 07/10/23 08:17 Oxygen Flow Rate (L/min) 2 Oxygen Delivery Method Nasal Cannula Weight: 92.8 kg Body Mass Index (BMI) 27.7 Intake & Output: Intake and Output for Last 24 Hours 07/08/23 07/09/23 07/10/23 23:59 23:59 23:59 Intake Total 2540 / 2540 240 / 240 Output Total 2700 / 2700 1000 / 1000 Balance -160 / -160 -760 / -760 Lab / Micro Data 07/10/23 06:20 07/10/23 06:20 Labs: Laboratory Results - last 24 hr 07/09/23 03:56: Magnesium 2.7 H 07/09/23 12:12: POC Glucose 173 H 07/09/23 15:34: Rheumatoid Factor < 10.0 07/09/23 17:01: POC Glucose 172 H 07/09/23 22:09: POC Glucose 164 H 07/10/23 05:02: Urine Color Yellow, Urine Clarity Clear, Urine pH 6.0, Ur Specific [place] 1.015, Urine Protein 30 H, Urine Glucose (UA) Normal, Urine Ketones Negative, Urine Occult Blood 10 H, Urine Nitrite Negative, Urine Bilirubin Negative, Urine Urobilinogen Normal, Ur Leukocyte Esterase Negative, Urine RBC 0 SEEN, Urine WBC 0 SEEN, Ur Squamous Epith Cells 0 SEEN, Urine Bacteria 0 SEEN, Urine Mucus 0 SEEN 07/10/23 06:20: WBC 10.4, RBC 2.92 L, Hgb 9.0 L, Hct 27.5 L, MCV 94.2 H, MCH 30.8, MCHC 32.7, RDW Std Deviation 48.0 H, RDW Coeff of Cait 14.1, Plt Count 309,MPV 10.3, Sodium 139, Potassium 3.6, Chloride 102, Carbon Dioxide 30.0, Anion Gap 7, BUN 56 H, Creatinine 2.05 H, Estim Creat Clear Calc 29.97, Est GFR (MDRD)Af Amer 40 L, Est GFR (MDRD) Non-Af 33 L, BUN/Creatinine Ratio 27.3 H, Glucose 172 H, Calcium 8.5 07/10/23 06:41: POC Glucose 169 H Micro: Microbiology 07/10/23 05:02 Urine, Clean Catch Legionella Antigen - Final 07/10/23 05:02 Urine, Clean Catch Streptococcus pneumoniae Antigen (M - Final 07/09/23 04:00 Mucosa - Nasopharyngeal SARS-CoV-2, Influenza & RSV (PCR) - Final 07/09/23 04:18 Stool Stool Occult Blood (DAX) - Final Radiography Diagnostic Testing: Radiology Impression Chest CT 07/09/23 06:01 IMPRESSION: 1. Bilateral pleural effusions and bibasilar atelectasis more prominent on the right than left. 2. Mild cardiomegaly with moderate sized pericardial effusion. Electronically Signed: Pedro Pablo Gray MD at 9:19 EDT , Echocardiogram 07/09/23 11:52 Interpretation Summary The estimated ejection fraction is 70 %. Unable to assess diastolic dysfunction. Moderate pericardial effusion. Ordering Physician: Jesús Belcher Referring Physician: Jennifer Watt Performed By: Aleida Owens, OSMANI, RVT Physical Exam Const alert and no apparent distress Constitutional Narrative: listless. afebrile. weak (required assistance sitting up in bed). Resp normal respiratory effort and no retractions Resp Narrative: coarse BS bilaterally. Cardio regular rate, regular rhythm, S1 normal heart sound and S2 normal heart sound GI normal to inspection, nondistended, normoactive bowel sounds, soft to palpation and non-tender Extremity Extremity Narrative: decreased edema. Neuro moves all extremities and no focal motor deficits Sensorium / Orientation: awake and alert Assessment & Plan Assessment/Plan (1) Hypoxemia: (2) Weakness: PLAN: Plan Acute HFpEF * EF 70%. Moderate pericardial effusion. * diuresis * CT shows pleural and pericardial effusion. * monitor labs closely given CKD pericardial effusion * no evidence of pulsus paradoxus 07/08 * diurese sinus pause * carvedilol held * pt was going into afib w RVR, then convert to NSR, but would have a pause. Cardiology started amiodarone to mitigate the afib with RVR. * cannot rule out need for PPM * continue telemetry monitoring Debility * acute on chronic * due to underlying poor performance status, advanced age and CHF * PT OT * hold gabapentin Elevated ESR/CPR * unclear etiology: infectious v autoimmune v other * RF negative. check KEVIN, RF. * check infectious work up: UA, UCx, BCx, pneumonia work up. Hold on abx at present. Orthostatic hypotension * volume overloaded * check AM cortisol Chronic medical conditions: ? Mood disorder: Stable. Continue home sertraline. ? Movement disorder: Stable. Continue home protocol. ? BPH with obstructive symptoms: Continue home finasteride. ? Neuropathy: Continue home gabapentin. ? History of CVA: Continue home clopidogrel, statin, Zetia ? Type 2 diabetes mellitus: Home regimen of insulin glargine 24 units daily withHumalog sliding scale insulin with meals. Will start Lantus 18 units in the morning and sliding scale insulin with meals as needed, adjust accordingly. DVT prophylaxis: Heparin subcu CODE STATUS: Full code, verified Expected disposition: Home with home health care versus SNF, 2 to 3 days Charges/Coding Visit Charges Inpatient E&M: 88722 Subs Hosp L2 07/10/23 1228 <Electronically signed by Jesús Belcher DO> Cosigner Signature (if applicable): CC: ~ Signed ADDENDUM by Dr. Jesús Belcher DO on 07/10/23 at 1339 Addendum Advance care planning: Spent additional 30 minutes discussed with the patient and his who is present at bedside, about all the active PE, increased risk of cardiac arrest thyroid to be necessary. Verified the patient's still wishes to be full code. Procedures Hospitalists Procedures: 25595 Advncd Care Plan 30 Min 07/10/23 1339<Electronically signed by Jesús Belcher DO> Cosigner Signature (if applicable): cc: ~* Signed [facility] Work Phone: [phone] 393-319204-27-2024 History and physical note Author [facility] July 09, 2023 8:59pm Note Date/Time July 09, 2023 5:0 3am [facility] Medical Records Department [address] [place] [address] H&P Exam - Hospitalist 07/09/23 0501 MR#: [id number] Acct: [id number] Name: PEDRO LUISFRANCISCO LAGUNASE Rep #:[id number] : 1940 82 From: Shankar islas DO PCP: Dr. Jennifer Watt MD Status:ADM IN Location: U [id number] HPI - General General Date of Admission: 07/09/23 Date of Service: 07/09/23 Chief Complaint: Weakness HPI Narrative FRANCISCO THOMAS, is a 82 M who presented to [facility] ED on 07/09/2023 with worsening weakness. Patient seen at bedside in the ED, present. Patient was sitting up fairly comfortably in bed. He appeared somewhat fatigued but was otherwise answering questions appropriately. States that he has felt generally weaker over the past week or so. He lives at home with his and does have a degree of debility after history of prior stroke with left-sided weakness but is typically able to ambulate with assistance and gait belt. However, he got up to urinate earlier this morning and was unable tostand even with assistance to urinate, so called the squad to bring him in. Patient otherwise denies any recent chest pain, shortness of breath, fevers or chills. He denies any lightheadedness or dizziness when going from sitting to standing. Denies any difficulty with urination. No other acute concerns at this time. In the ED, patient was noted to be hypoxic to 87% on room air, does not wear oxygen at home. Chest x-ray on 07/05 showed diffuse opacifications of both lung bedoya with small bilateral pleural effusions suggesting pulmonary vascular congestion versus diffuse inflammatory process. Repeat chest x-ray on 07/08 completed but read is pending, on my wet read appears similar to previous. BNP was 289, down from 320 on 07/05. Was noted to have a hemoglobin of 8.7, down from 9.9 on 07/05. Notably, stool occult blood was negative and patient denies any recent dark or bloody bowel movements. Has history of CKD, creatinine was 2.43, similar to baseline. Blood pressure was stable in 120s over 50s. Patientnotably is on extensive blood pressure regimen, follows with cardiology for this. notes they have been checking his blood pressures most every day andthey have been in the 120s to 130s systolic fairly consistently here recently. EKG showed normal sinus rhythm with heart rate in the 60s. However, patient wasnoted on telemetry to have a heart rate dropped into the 30s, was asymptomatic at the time. Rhythm strip appears to show sinus bradycardia. Per last cardiology office note in 01/2023, patient has had asymptomatic sinus bradycardia similar to this in the past it appears. Given patient's worsening weakness and other medical concerns, will be admitted for further management. [facility] Medical History (Updated 07/09/23 @ 14:[address] Juliane Lui MD) Absent pedal pulses Acute left-sided muscle weakness BiPAP (biphasic positive airway pressure) dependence Cardiology follow-up encounter Chronic anemia Congestive heart failure Coronary artery disease Depression Depression Dietary restriction Dysphagia Essential hypertension Facial droop due to acute stroke Fatigue History of CVA (cerebrovascular accident) (12/2020) History of echocardiogram History of edema Hyperlipidemia Hypertension Incontinence Insulin dependent diabetes mellitus Limb weakness Low iron Non-smoker Normocytic normochromic anemia Obstructive Sleep Apnea-Hypopnea Syndrome Osteoarthritis Peripheral vascular occlusive disease Pneumonia Prostate disease Proteinuria due to type 2 diabetes mellitus Rash Recurrent inguinal hernia of right side without obstruction or gangrene Restless legs Right pontine CVA Right renal artery stenosis Skin lesion of face Stroke/cerebrovascular accident Type 2 diabetes mellitus Unsteadiness Ventricular tachycardia seen on handtools repairer (02/20/21) Walker as ambulation aid Wears glasses Home Medications multivitamin,[id number] (Complete Multivitamin tablet) 1 tab PO QDAY supplement 03/03/17 [History Last Taken 01/11/23] Handicap Placard #1 ea 02/12/21 [Rx Last Taken Unknown] latanoprost 0.005 % eye drops 1 drp EACH EYE HS eyes 02/24/22 [History Last Taken 01/10/23] clopidogrel 75 mg tablet (Plavix) 75 mg PO DAILY blood thinner #90 tabs 06/07/22[Rx Last Taken 01/03/23] pen needle, diabetic 32 gauge x 5/32 (BD Sanaz 2nd Gen Pen Needle) #50 ea 06/17/22 [Rx Last Taken Unknown] amlodipine 10 mg tablet 10 mg PO DAILY BP #90 tabs 10/15/22 [Rx Last Taken 01/12/23] doxazosin 8 mg tablet 8 mg PO QHS #90 tabs 11/19/22 [Rx Last Taken 01/11/23] furosemide 40 mg tablet (Lasix) 40 mg PO DAILY water pill #90 tabs 09/15/23 [Rx Last Taken 01/11/23] carvedilol 6.25 mg tablet 6.25 mg PO BID heart #60 tabs 12/03/22 [Rx Last Taken 01/12/23] pramipexole 0.125 mg tablet 0.125 mg PO QHS parkinsons #90 tabs 12/24/22 [Rx Last Taken 01/11/23] insulin glargine 100 unit/mL (3 mL) subcutaneous pen (Basaglar KwikPen U-100 Insulin) 24 unit subcut DAILY blood sugar 01/03/23 [History Last Taken 01/11/23] insulin lispro 100 unit/mL subcutaneous pen (Humalog KwikPen (U-100) Insulin) 1 unit (0.01 mL) subcut TIDAC PRN SLIDING SCALE #15 mL 01/10/23 [Rx Last Taken Unknown] hydralazine 100 mg tablet 100 mg PO ONCE #90 tabs 02/01/23 [Rx Last Taken Unknown] sertraline 50 mg tablet 50 mg PO QHS mood #90 tabs 02/23/23 [Rx Last Taken Unknown] ezetimibe 10 mg tablet (Zetia) 10 mg PO QHS cholesterol #90 tabs 05/04/23 [Rx Last Taken Unknown] gabapentin 100 mg capsule 100 mg PO BID pain #180 caps 05/04/23 [Rx Last Taken Unknown] gabapentin 300 mg capsule 300 mg PO 2100 pain #90 caps 05/04/23 [Rx Last Taken Unknown] losartan 25 mg tablet 25 mg PO DAILY BP #90 tabs 05/04/23 [Rx Last Taken Unknown] hydralazine 25 mg tablet 75 mg (3 x 25 mg) PO .COMPLEX BP #540 tabs 06/30/23 [Rx Last Taken Unknown] finasteride 5 mg tablet 5 mg PO DAILY 07/09/23 [History Last Taken Unknown] Allergy/AdvReac Type Severity Reaction Status Date / Time meloxicam [From Mobic] Allergy Intermediate itching Verified 06/16/23 12:51 pravastatin [From Pravachol] AdvReac Mild myalgia Verified 06/16/23 12:51 cholestyramine AdvReac hypoglycemi Verified 06/16/23 12:51 a Family History Mother Hypertension Cancer Father Heart disease Diabetes Surgical History H/O transurethral resection of prostate (01/12/23) History of cataract surgery History of herniorrhaphy History of hydrocelectomy History of lumbar laminectomy History of prostate surgery History of stent insertion of renal artery (08/05/21) Hx of cystoscopy Hx of total knee arthroplasty Social History household members: spouse and other details: Abigail is his 's name housing: house number of children: 2 current occupational status: retired and other details: worked for [employer] prior to retiring leisure activities: other Smoking Status: Never smoker Electronic Cigarette Use: not used second hand exposure: No alcohol intake: former substance use type: does not use what type of physical activity do you participate in: walking frequency: 1-2 times per week inés/judaism: None seatbelt use: always ROS Constitutional Constitutional: Reports fatigue and weakness; Denies chills or fever(s) Eyes Eyes: Denies change in vision Cardiovascular Cardiovascular: Denies chest pain, dyspnea on exertion, edema, lightheadedness, orthopnea or palpitations Respiratory/Chest Respiratory/Chest: Denies cough or shortness of breath at rest Gastrointestinal Gastrointestinal: Denies abdominal pain, constipation, diarrhea, nausea or vomiting Genitourinary Genitourinary: Denies dysuria Neurologic Neurologic: Denies confusion, dizziness, focal weakness, headache(s), numbness or paresthesias Vital Signs Vital Signs Vital Signs: 07/09/23 03:32 07/09/23 03:36 07/09/23 03:38 Temperature 97.8 F 97.8 F Temperature Source Temporal Temporal Pulse Rate 67 67 Respiratory Rate 19 H 19 H Respiratory Effort Short of Breath Respiratory Depth Normal Respiratory Pattern Normal Blood Pressure 128/54 H 128/54 H Blood Pressure Mean 78 78 Pulse Ox 87 96 Oxygen Delivery Method Room Air Nasal Cannula Nasal Cannula Oxygen Flow Rate (L/min) 2 2 07/09/23 04:48 Temperature 98 F Temperature Source Temporal Pulse Rate 66 Respiratory Rate 19 H Respiratory Effort Respiratory Depth Respiratory Pattern Blood Pressure 120/58 L Blood Pressure Mean 78 Pulse Ox 96 Oxygen Delivery Method Nasal Cannula Oxygen Flow Rate (L/min) 2 Weight Weight: 94.6 kg Body Mass Index (BMI) 28.3 Physical Exam Const alert, no apparent distress and average body habitus Constitutional Narrative: Elderly male, somewhat fatigued appearing, otherwise sitting up comfortably in bed, conversing normally, in no acute distress. General Appearance: cooperative and comfortable HEENT normocephalic, head/scalp atraumatic, hearing grossly normal bilaterally and nasal mucous membranes and turbinates normal Eyes PERRL, EOMs intact bilaterally and conjunctivae normal Neck full ROM Chest inspection of chest normal Resp Resp Narrative: Breathing comfortably on 2 L nasal cannula. Mildly decreased breath sounds bilaterally, no wheezing or crackles noted. Cardio regular rate, regular rhythm, no murmurs and peripheral pulses 2+ throughout GI normal to inspection, nondistended, normoactive bowel sounds, soft to palpation,non-tender and non-distended Back/Spine normal ROM Extremity normal to inspection, full ROM and no pedal edema Skin no rashes or lesions noted Neuro moves all extremities and no focal motor deficits Speech: speech normal Psych mental status grossly normal Results Lab / Micro Data 07/09/23 03:56 07/09/23 03:56 Labs: Laboratory Results - last 24 hr 07/09/23 03:56: WBC 10.1, RBC 2.86 L, Hgb 8.7 L, Hct 26.6 L, MCV 93.0, MCH 30.4,MCHC 32.7, RDW Std Deviation 47.8 H, RDW Coeff of Cait 14.2, Plt Count 286, MPV 10.3, Immature Gran % (Auto) 0.500, Neut % (Auto) 73.6 H, Lymph % (Auto) 10.9 L,[place] % (Auto) 11.1 H, Eos % (Auto) 3.4, Baso % (Auto) 0.5, Absolute Neuts (auto)7.5, Absolute Lymphs (auto) 1.10, Nucleated RBC % 0, Sodium 138, Potassium 3.8, Chloride 103, Carbon Dioxide 28.0, Anion Gap 7, BUN 59 H, Creatinine 2.42 H, Estim Creat Clear Calc 27.61, Est GFR (MDRD) Af Amer 33 L, Est GFR (MDRD) Non-Af27 L, BUN/Creatinine Ratio 24.4 H, Glucose 124 H, Calcium 8.4 L, Troponin I HighSens 12, B- Natriuretic Peptide 289.5 H Micro: Microbiology 07/09/23 04:00 Mucosa - Nasopharyngeal SARS-CoV-2, Influenza & RSV (PCR) - Final 07/09/23 04:18 Stool Stool Occult Blood (DAX) - Final Assessment & Plan Assessment/Plan (1) Hypoxemia: (2) Weakness: PLAN: Plan Patient is an 82-year-old male who presented [facility] ED on with worsening weakness. 1. Worsening weakness in setting of mild chronic debility ? Admit under inpatient status to PCU. PT/OT/case management consulted. Unclear etiology at this time. Further workup and treatment of other acute issues as noted below. 2. Acute hypoxia, abnormal chest x-ray ? Noted to be hypoxic to 87% on room air at rest in the ED. Not on home O2, no history of COPD or asthma. Does have history of CHF. Chest x-ray on 07/05 with findings concerning for vascular congestion versus a diffuse inflammatory process. Repeat chest x-ray on 07/08 with read pending. BNP stable, does not appear significantly volume overloaded on exam. Given new hypoxia and initial chest x- ray findings of unclear significance, will obtain CT chest without contrast (contrast precluded by kidney function) for further evaluation. 3. Anemia ? Hemoglobin 8.7 on admit, down from 9.9 on 07/05. Does have history of anemia with hemoglobin values in the 9 range consistently at the end of 2022. Hemoccult stool negative, denied any dark or bloody bowel movements. Iron studies from 07/05 do appear to show iron deficiency anemia. Unclear etiology atthis time. Suspect that anemia of chronic kidney disease is contributing to this presentation. 4. Sinus bradycardia ? Normal sinus rhythm in the 60s on admit, but notably dropped to the 30s that was caught on the rhythm strip. Rhythm strip does appear to show sinus bradycardia. Patient follows with [facility], last office visit back in January 2023. Was noted at that time that he has baseline bradycardia and EKG at that point showed sinus bradycardia with heart rate of 40-45. Home beta-wilmer held for now. Continue cardiac monitoring. 5. Hypertension ? Follows with [facility] as noted above. On extensive medication regimen of amlodipine 10 mg daily, carvedilol 6.25 mg twice daily, doxazosin 8 mg daily, Lasix 40 mg daily, losartan 25 mg daily. BP normotensive to borderline low on admit. Will hold home carvedilol and losartan today, and start doxazosin at 4 mg daily and amlodipine at 5 mg daily. Orthostatic vitals ordered. Chronic medical conditions: ? Mood disorder: Stable. Continue home sertraline. ? Movement disorder: Stable. Continue home protocol. ? BPH with obstructive symptoms: Continue home finasteride. ? Neuropathy: Continue home gabapentin. ? History of CVA: Continue home clopidogrel, statin, Zetia ? Type 2 diabetes mellitus: Home regimen of insulin glargine 24 units daily withHumalog sliding scale insulin with meals. Will start Lantus 18 units in the morning and sliding scale insulin with meals as needed, adjust accordingly. DVT prophylaxis: Heparin subcu CODE STATUS: Full code, verified Expected disposition: Home with home health care versus SNF, 2 to 3 days Total clinical time spent by myself addressing the patient's medical issues, reviewing all the data, and collaborating with patient's care team: 55 minutes. Charges/Coding Visit Charges Inpatient E&M: 51971 Init Hosp L2 07/09/232058 <Electronically signed by Shankar Nevarez DO> Cosigner Signature (if applicable): CC: Dr. Shankar Nevarez DO; Dr. Jennifer Watt MD~ Signed [facility] Work Phone: [phone]) 404-272204-27-2024 Consult note Author Juliane Lui [facility] July 09, 2023 3:01pm Note Date/Time July 09, 2023 3:0 1pm [facility] Medical Records Department [address] [place] [id number] Consultation - Cardiology 07/09/23 1457 MR#: [id number] Acct: [id number] Name: FRANCISCO THOMAS Rep #:[id number] : 1940 82 From: Juliane mane MD PCP: Dr. 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 Will need further monitoring to see if that is the case. Currently he does go into A-fib with RVR and then converts to sinus rhythm and at the time of converting he has long pauses. We can try amiodarone to see if he can maintain patient in sinus rhythm. Recommendamiodarone 400 mg p.o. twice daily for 3 days and then 200 mg daily. If this isnot adequate then we can start beta-wilmer at a low dose and see if he is able to tolerate it without problems. (2) CHF (congestive heart failure): QUALIFIERS: Heart failure type: unspecified Heart failure chronicity: unspecified Qualified Code(s): I50.9 - Heart failure, unspecified PLAN: Patient has preserved EF. His creatinine is elevated. May be reasonable to give a dose of Lasix this evening to see if this helps with her shortness of breath. HPI Consult Data Date of Consult: 07/09/23 HPI Narrative Reason for Consultation: Sinus pauses HPI Narrative: FRANCISCO THOMAS, is a 82 M who presents with weakness. He has also been having shortness of breath for the last week. On daily he has been having episodes of paroxysmal atrial fibrillation and sinus pauses. These pauses however appear celso happening at the time of conversion from A-fib to sinus rhythm. His beta-wilmer is currently on hold. Review of systems: All systems reviewed. All else is negative except that in HPI [facility] Medical History (Updated 07/09/23 @ 14:[address] Juliane Lui MD) Absent pedal pulses Acute left-sided muscle weakness BiPAP (biphasic positive airway pressure) dependence Cardiology follow-up encounter Chronic anemia Congestive heart failure Coronary artery disease Depression Depression Dietary restriction Dysphagia Essential hypertension Facial droop due to acute stroke Fatigue History of CVA (cerebrovascular accident) (12/2020) History of echocardiogram History of edema Hyperlipidemia Hypertension Incontinence Insulin dependent diabetes mellitus Limb weakness Low iron Non-smoker Normocytic normochromic anemia Obstructive Sleep Apnea-Hypopnea Syndrome Osteoarthritis Peripheral vascular occlusive disease Pneumonia Prostate disease Proteinuria due to type 2 diabetes mellitus Rash Recurrent inguinal hernia of right side without obstruction or gangrene Restless legs Right pontine CVA Right renal artery stenosis Skin lesion of face Stroke/cerebrovascular accident Type 2 diabetes mellitus Unsteadiness Ventricular tachycardia seen on handtools repairer (02/20/21) Walker as ambulation aid Wears glasses Home Medications multivitamin,[id number] (Complete Multivitamin tablet) 1 tab PO QDAY supplement 12/21/17 [History Last Taken 01/11/23] Handicap Placard #1 ea 02/12/21 [Rx Last Taken Unknown] latanoprost 0.005 % eye drops 1 drp EACH EYE HS eyes 02/24/22 [History Last Taken 01/10/23] clopidogrel 75 mg tablet (Plavix) 75 mg PO DAILY blood thinner #90 tabs 06/07/22[Rx Last Taken 01/03/23] pen needle, diabetic 32 gauge x /32 (BD Sanaz 2nd Gen Pen Needle) #50 ea 06/17/22 [Rx Last Taken Unknown] amlodipine 10 mg tablet 10 mg PO DAILY BP #90 tabs 10/15/22 [Rx Last Taken 01/12/23] doxazosin 8 mg tablet 8 mg PO QHS #90 tabs 11/19/22 [Rx Last Taken 01/11/23] furosemide 40 mg tablet (Lasix) 40 mg PO DAILY water pill #90 tabs 11/26/22 [Rx Last Taken 01/11/23] carvedilol 6.25 mg tablet 6.25 mg PO BID heart #60 tabs 12/03/22 [Rx Last Taken 01/12/23] pramipexole 0.125 mg tablet 0.125 mg PO QHS parkinsons #90 tabs 12/24/22 [Rx Last Taken 01/11/23] insulin glargine 100 unit/mL (3 mL) subcutaneous pen (Basaglar KwikPen U-100 Insulin) 24 unit subcut DAILY blood sugar 01/03/23 [History Last Taken 01/11/23] insulin lispro 100 unit/mL subcutaneous pen (Humalog KwikPen (U-100) Insulin) 1 unit (0.01 mL) subcut TIDAC PRN SLIDING SCALE #15 mL 01/10/23 [Rx Last Taken Unknown] hydralazine 100 mg tablet 100 mg PO ONCE #90 tabs 02/01/23 [Rx Last Taken Unknown] sertraline 50 mg tablet 50 mg PO QHS mood #90 tabs 02/23/23 [Rx Last Taken Unknown] ezetimibe 10 mg tablet (Zetia) 10 mg PO QHS cholesterol #90 tabs 05/04/23 [Rx Last Taken Unknown] gabapentin 100 mg capsule 100 mg PO BID pain #180 caps 05/04/23 [Rx Last Taken Unknown] gabapentin 300 mg capsule 300 mg PO 2100 pain #90 caps 05/04/23 [Rx Last Taken Unknown] losartan 25 mg tablet 25 mg PO DAILY BP #90 tabs 05/04/23 [Rx Last Taken Unknown] hydralazine 25 mg tablet 75 mg (3 x 25 mg) PO .COMPLEX BP #540 tabs 06/30/23 [Rx Last Taken Unknown] finasteride 5 mg tablet 5 mg PO DAILY 07/09/23 [History Last Taken Unknown] Allergy/AdvReac Type Severity Reaction Status Date / Time meloxicam [From Mobic] Allergy Intermediate itching Verified 06/16/23 12:51 pravastatin [From Pravachol] AdvReac Mild myalgia Verified 06/16/23 12:51 cholestyramine AdvReac hypoglycemi Verified 06/16/23 12:51 a Family History Mother Hypertension Cancer Father Heart disease Diabetes Surgical History H/O transurethral resection of prostate (01/12/23) History of cataract surgery History of herniorrhaphy History of hydrocelectomy History of lumbar laminectomy History of prostate surgery History of stent insertion of renal artery (08/05/21) Hx of cystoscopy Hx of total knee arthroplasty Social History household members: spouse and other details: Abigail is his 's name housing: house number of children: 2 current occupational status: retired and other details: worked for [employer] prior to retiring leisure activities: other Smoking Status: Never smoker Electronic Cigarette Use: not used second hand exposure: No alcohol intake: former substance use type: does not use what type of physical activity do you participate in: walking frequency: 1-2 times per week inés/judaism: None seatbelt use: always Physical Exam Const alert and oriented x3 HEENT normocephalic Eyes no scleral icterus Resp normal respiratory effort Extremity Extremity Narrative: Bilateral pitting edema Risk Stratification Risk Stratification Applicable: No Charges/Coding Visit Charges Inpatient E&M: 75045 Init Hosp L2 Objective Data Vital Signs: Vital Signs Temp Pulse Resp BP Pulse Ox O2 Del Method O2 Flow Rate 98.4 F 90 18 116/62 92 Nasal Cannula 2 04/27/24 14:07/09/23 14:07/09/23 14:07/09/23 14:07/09/23 14:07/09/23 14:07/09/23 14:09 Oxygen Flow Rate (L/min) 2 Oxygen Delivery Method Nasal Cannula Weight: 204 lb 9.423 oz Body Mass Index (BMI) 27.7 Intake & Output: Intake and Output for Last 24 Hours 07/07/23 07/08/23 07/09/23 23:59 23:59 23:59 Intake Total 1650 / 1650 Output Total 1100 / 1100 Balance 550 / 550 Lab / Micro Data 07/09/23 03:56 07/09/23 03:56 Labs: Laboratory Results - last 24 hr 07/09/23 03:56: WBC 10.1, RBC 2.86 L, Hgb 8.7 L, Hct 26.6 L, MCV 93.0, MCH 30.4,MCHC 32.7, RDW Std Deviation 47.8 H, RDW Coeff of Cait 14.2, Plt Count 286, MPV 10.3, Immature Gran % (Auto) 0.500, Neut % (Auto) 73.6 H, Lymph % (Auto) 10.9 L,[place] % (Auto) 11.1 H, Eos % (Auto) 3.4, Baso % (Auto) 0.5, Absolute Neuts (auto)7.5, Absolute Lymphs (auto) 1.10, Nucleated RBC % 0, Sodium 138, Potassium 3.8, Chloride 103, Carbon Dioxide 28.0, Anion Gap 7, BUN 59 H, Creatinine 2.42 H, Estim Creat Clear Calc 27.61, Est GFR (MDRD) Af Amer 33 L, Est GFR (MDRD) Non-Af27 L, BUN/Creatinine Ratio 24.4 H, Glucose 124 H, Calcium 8.4 L, Magnesium 2.7 H, Troponin I High Sens 12, C-React Prot Ext Range 137.00 H, B-Natriuretic Peptide 289.5 H 07/09/23 06:49: POC Glucose 115 H 07/09/23 07:49: ESR 65 H 07/09/23 12:12: POC Glucose 173 H Micro: Microbiology 07/09/23 04:00 Mucosa - Nasopharyngeal SARS-CoV-2, Influenza & RSV (PCR) - Final 07/09/23 04:18 Stool Stool Occult Blood (DAX) - Final Cardiology Labs/Tests 07/09/23 03:56: WBC 10.1, RBC 2.86 L, Hgb 8.7 L, Hct 26.6 L, MCV 93.0, MCH 30.4,MCHC 32.7, Plt Count 286, MPV 10.3, Immature Gran % (Auto) 0.500, Neut % (Auto) 73.6 H, Lymph % (Auto) 10.9 L, [place] % (Auto) 11.1 H, Eos % (Auto) 3.4, Baso % (Auto) 0.5, Absolute Neuts (auto) 7.5, Nucleated RBC % 0, Sodium 138, Potassium 3.8, Chloride 103, Carbon Dioxide 28.0, Anion Gap 7, BUN 59 H, Creatinine 2.42 H, Est GFR (MDRD) Af Amer 33 L, Est GFR (MDRD) Non-Af 27 L, BUN/Creatinine Ratio 24.4 H, Glucose 124 H, Calcium 8.4 L, Magnesium 2.7 H, B-Natriuretic Peptide 289.5 H Rhythm: EKG: ECHO: Stress Test: Cardiac Cath: PCI: CT Surgery: Holter monitor: EPS: PPM: CXR: Chest CT Scan: Radiography Diagnostic Testing: Radiology Impression Chest X-Ray 07/09/23 04:28 IMPRESSION: Bibasilar airspace disease and small pleural effusions. Findings may indicate atelectasis or infection. Electronically Signed: Alphonse Pena MD at 6:11 EDT , Chest CT 07/09/23 06:01 IMPRESSION: 1. Bilateral pleural effusions and bibasilar atelectasis more prominent on the right than left. 2. Mild cardiomegaly with moderate sized pericardial effusion. Electronically Signed: Pedro Pablo Gray MD at 9:19 EDT , Echocardiogram 07/09/23 11:52 Interpretation Summary The estimated ejection fraction is 70 %. Unable to assess diastolic dysfunction. Moderate pericardial effusion. Ordering Physician: Jesús Belcher Referring Physician: Jennifer Watt Performed By: Aleida Owens, OSMANI, RVT 07/09/23 1501 <Electronically signed by Juliane Lui MD> Cosigner Signature (if applicable): CC: Dr. Jennifer Watt MD~ Signed [facility] Work Phone: 1(571) 416-696704-27-2024 Progress note Author Jesús Belcher [facility] July 09, 2023 2:45pm Note Date/Time July 09, 2023 8:5 2am [facility] Medical Records Department [address] [place] [id number] Progress Note - Hospitalist 07/09/23 0848 MR#: [id number] Acct: [id number] Name: FRANCISCO THOMAS Rep #:[id number] : 1940 82 From: Jesús Belcher DO PCP: Dr. Jennifer Watt MD Status:ADM IN Location: [place] [address] Subjective Subjective Has been weak and SOB for the past week. Objective Data Objective Data Vital Signs: Vital Signs Temp Pulse Resp BP Pulse Ox O2 Del Method O2 Flow Rate 36.6 C 105 H 18 109/62 94 Nasal Cannula 2 07/09/23 07:48 07/09/23 07:48 07/09/23 07:48 07/09/23 07:48 07/09/23 07:48 07/09/23 07:48 07/09/23 07:48 Oxygen Flow Rate (L/min) 2 Oxygen Delivery Method Nasal Cannula Weight: 92.8 kg Body Mass Index (BMI) 27.7 Intake & Output: Intake and Output for Last 24 Hours 07/07/23 07/08/23 07/09/23 23:59 23:59 23:59 Intake Total 1000 / 1000 Balance 1000 / 1000 Lab / Micro Data 07/09/23 03:56 07/09/23 03:56 Labs: Laboratory Results - last 24 hr 07/09/23 03:56: WBC 10.1, RBC 2.86 L, Hgb 8.7 L, Hct 26.6 L, MCV 93.0, MCH 30.4,MCHC 32.7, RDW Std Deviation 47.8 H, RDW Coeff of Cait 14.2, Plt Count 286, MPV 10.3, Immature Gran % (Auto) 0.500, Neut % (Auto) 73.6 H, Lymph % (Auto) 10.9 L,[place] % (Auto) 11.1 H, Eos % (Auto) 3.4, Baso % (Auto) 0.5, Absolute Neuts (auto)7.5, Absolute Lymphs (auto) 1.10, Nucleated RBC % 0, Sodium 138, Potassium 3.8, Chloride 103, Carbon Dioxide 28.0, Anion Gap 7, BUN 59 H, Creatinine 2.42 H, Estim Creat Clear Calc 27.61, Est GFR (MDRD) Af Amer 33 L, Est GFR (MDRD) Non-Af27 L, BUN/Creatinine Ratio 24.4 H, Glucose 124 H, Calcium 8.4 L, Troponin I HighSens 12, C-React Prot Ext Range 137.00 H, B-Natriuretic Peptide 289.5 H 07/09/23 06:49: POC Glucose 115 H 07/09/23 07:49: ESR 65 H Micro: Microbiology 07/09/23 04:00 Mucosa - Nasopharyngeal SARS-CoV-2, Influenza & RSV (PCR) - Final 07/09/23 04:18 Stool Stool Occult Blood (DAX) - Final Radiography Diagnostic Testing: Radiology Impression Chest X-Ray 07/09/23 04:28 IMPRESSION: Bibasilar airspace disease and small pleural effusions. Findings may indicate atelectasis or infection. Electronically Signed: Alphonse Pena MD at 6:11 EDT , Physical Exam Const Constitutional Narrative: up in chair. no respiratory distress. Manually checked for BP pulsus paradoxus and it was not identified. HEENT head/scalp atraumatic Resp Resp Narrative: bibasilar crackles. Cardio regular rate, regular rhythm, S1 normal heart sound and S2 normal heart sound GI normal to inspection, nondistended, normoactive bowel sounds, soft to palpation,non-tender and non-distended Extremity Extremity Narrative: bilateral LE edema. no foot ulcerations. Neuro Sensorium / Orientation: awake and alert Psych affect normal Assessment & Plan Assessment/Plan (1) Hypoxemia: (2) Weakness: PLAN: Plan Acute HFpEF * EF 65% from echo 02/17/2022 complicated RVSP 55 mmHg * start IV diuresis * CT shows pleural and pericardial effusion. * check echo * monitor labs closely given CKD pericardial effusion * no evidence of pulsus paradoxus * diurese * check echo sinus pause * carvedilol held * cannot rule out need for PPM * continue telemetry monitoring Debility * acute on chronic * due to underlying poor performance status, advanced age and CHF * PT OT * hold gabapentin Elevated ESR/CPR * unclear etiology: infectious v autoimmune v other * check KEVIN, RF. May need further autoimmune work up * check infectious work up: UA, UCx, BCx, pneumonia work up. Hold on abx at pre sent. Orthostatic hypotension * volume overloaded * check AM cortisol Chronic medical conditions: ? Mood disorder: Stable. Continue home sertraline. ? Movement disorder: Stable. Continue home protocol. ? BPH with obstructive symptoms: Continue home finasteride. ? Neuropathy: Continue home gabapentin. ? History of CVA: Continue home clopidogrel, statin, Zetia ? Type 2 diabetes mellitus: Home regimen of insulin glargine 24 units daily withHumalog sliding scale insulin with meals. Will start Lantus 18 units in the morning and sliding scale insulin with meals as needed, adjust accordingly. DVT prophylaxis: Heparin subcu CODE STATUS: Full code, verified Expected disposition: Home with home health care versus SNF, 2 to 3 days Charges/Coding Visit Charges Inpatient E&M: 41840 Subs Hosp L3 07/09/23 1445 <Electronically signed by Jesús Belcher DO> Cosigner Signature (if applicable): CC: ~ Signed [facility] Work Phone: [phone]) 880-467304-27-2024 Discharge summary Author Shelia Davenport [facility] July 09, 2023 7:54am Note Date/Time July 09, 2023 3:4 3am [facility] Medical Records Department [address] [place] [address] Emergency Department Summary 07/09/23 MR#: [id number] Acct: [id number] Name: FRANCISCO THOMAS Rep #:[id number] : 1940 82 From: Shelia Davenport DO PCP: Dr. Jennifer Watt MD Status:ADM IN Location: [address] History of Present Illness Chief Complaint: Shortness of Breath Detail of Chief Complaint: Generalized weakness Informant: patient Narrative Narrative: Patient presents the emergency department with complaint of generalized weakness. Patient states symptoms have been going on off and on for about a week. Tonight he needed to urinate and could not stand therefore the called the squad. Patient apparently was able to urinate at some point. No falls. He denies shortness of breath. He denies chest pain. He denies fever or recent illness. Patient does have history of CHF as well as prior stroke with left-sided weakness. Patient able to ambulate typically with assistance and a gait belt. [facility] Medical History (Updated 07/09/23 @ 05:[address] Shelia Davenport DO) Absent pedal pulses Acute left-sided muscle weakness BiPAP (biphasic positive airway pressure) dependence Cardiology follow-up encounter Chronic anemia Congestive heart failure Coronary artery disease Depression Depression Dietary restriction Dysphagia Essential hypertension Facial droop due to acute stroke Fatigue History of CVA (cerebrovascular accident) (12/2020) History of echocardiogram History of edema Hyperlipidemia Hypertension Incontinence Insulin dependent diabetes mellitus Limb weakness Low iron Non-smoker Normocytic normochromic anemia Obstructive Sleep Apnea-Hypopnea Syndrome Osteoarthritis Peripheral vascular occlusive disease Pneumonia Prostate disease Proteinuria due to type 2 diabetes mellitus Rash Recurrent inguinal hernia of right side without obstruction or gangrene Restless legs Right pontine CVA Right renal artery stenosis Skin lesion of face Stroke/cerebrovascular accident Type 2 diabetes mellitus Unsteadiness Ventricular tachycardia seen on handtools repairer (02/20/21) Walker as ambulation aid Wears glasses Home Medications multivitamin,[id number] (Complete Multivitamin tablet) 1 tab PO QDAY supplement 03/03/17 [History Last Taken 01/11/23] Handicap Placard #1 ea 02/12/21 [Rx Last Taken Unknown] latanoprost 0.005 % eye drops 1 drp EACH EYE HS eyes 02/24/22 [History Last Taken 01/10/23] clopidogrel 75 mg tablet (Plavix) 75 mg PO DAILY blood thinner #90 tabs 06/07/22[Rx Last Taken 01/03/23] pen needle, diabetic 32 gauge x /32 (BD Sanaz 2nd Gen Pen Needle) #50 ea 06/17/22 [Rx Last Taken Unknown] amlodipine 10 mg tablet 10 mg PO DAILY BP #90 tabs 10/15/22 [Rx Last Taken 01/12/23] doxazosin 8 mg tablet 8 mg PO QHS #90 tabs 11/19/22 [Rx Last Taken 01/11/23] furosemide 40 mg tablet (Lasix) 40 mg PO DAILY water pill #90 tabs 11/26/22 [Rx Last Taken 01/11/23] carvedilol 6.25 mg tablet 6.25 mg PO BID heart #60 tabs 12/03/22 [Rx Last Taken 01/12/23] pramipexole 0.125 mg tablet 0.125 mg PO QHS parkinsons #90 tabs 12/24/22 [Rx Last Taken 01/11/23] insulin glargine 100 unit/mL (3 mL) subcutaneous pen (Basaglar KwikPen U-100 Insulin) 24 unit subcut DAILY blood sugar 01/03/23 [History Last Taken 01/11/23] insulin lispro 100 unit/mL subcutaneous pen (Humalog KwikPen (U-100) Insulin) 1 unit (0.01 mL) subcut TIDAC PRN SLIDING SCALE #15 mL 01/10/23 [Rx Last Taken Unknown] hydralazine 100 mg tablet 100 mg PO ONCE #90 tabs 02/01/23 [Rx Last Taken Unknown] sertraline 50 mg tablet 50 mg PO QHS mood #90 tabs 02/23/23 [Rx Last Taken Unknown] ezetimibe 10 mg tablet (Zetia) 10 mg PO QHS cholesterol #90 tabs 05/04/23 [Rx Last Taken Unknown] gabapentin 100 mg capsule 100 mg PO BID pain #180 caps 05/04/23 [Rx Last Taken Unknown] gabapentin 300 mg capsule 300 mg PO 2100 pain #90 caps 05/04/23 [Rx Last Taken Unknown] losartan 25 mg tablet 25 mg PO DAILY BP #90 tabs 05/04/23 [Rx Last Taken Unknown] hydralazine 25 mg tablet 75 mg (3 x 25 mg) PO .COMPLEX BP #540 tabs 06/30/23 [Rx Last Taken Unknown] finasteride 5 mg tablet 5 mg PO DAILY 07/09/23 [History Last Taken Unknown] Allergy/AdvReac Type Severity Reaction Status Date / Time meloxicam [From Mobic] Allergy Intermediate itching Verified 06/16/23 12:51 pravastatin [From Pravachol] AdvReac Mild myalgia Verified 06/16/23 12:51 cholestyramine AdvReac hypoglycemi Verified 06/16/23 12:51 a Family History Mother Hypertension Cancer Father Heart disease Diabetes Surgical History H/O transurethral resection of prostate (01/12/23) History of cataract surgery History of herniorrhaphy History of hydrocelectomy History of lumbar laminectomy History of prostate surgery History of stent insertion of renal artery (08/05/21) Hx of cystoscopy Hx of total knee arthroplasty Social History household members: spouse and other details: Abigail is his 's name housing: house number of children: 2 current occupational status: retired and other details: worked for [employer] prior to retiring leisure activities: other Smoking Status: Never smoker Electronic Cigarette Use: not used second hand exposure: No alcohol intake: former substance use type: does not use what type of physical activity do you participate in: walking frequency: 1-2 times per week inés/judaism: None seatbelt use: always ROS ROS ED Review of Systems ROS Unobtainable: other Constitutional Constitutional ED: Reports lethargy; Denies chills, fever(s), sweats or weight loss Eyes Eyes: Denies blurry vision, change in vision or diplopia ENT ENT ED: Denies rhinorrhea or sore throat Cardiovascular Cardiovascular: Denies chest pain, orthopnea or racing heartbeat Respiratory/Chest Respiratory/Chest: Denies cough, dyspnea, dyspnea on exertion, orthopnea or sputum Gastrointestinal Gastrointestinal: Denies abdominal pain, diarrhea, nausea or vomiting Genitourinary Genitourinary ED: Denies dysuria, hematuria or urinary frequency Musculoskeletal Musculoskeletal: Denies arthralgias, back pain, myalgias or neck pain Integumentary Denies abscess, Abrasions or rash Neurologic Neurologic: Reports weakness; Denies headache(s) Psychiatric Psychiatric: Denies anxiety, depression or suicidal thoughts Endocrine Endocrinology: Denies polydipsia, polyphagia or polyuria Hematologic/Lymphatic Hematologic/Lymphatic: Denies easy bleeding, easy bruising or lymphadenopathy Allergic/Immunologic Allergic/Immunologic ED: Denies mouth swelling, tongue swelling or urticaria EXAM Physical Exam Const Vital Signs: 07/09/23 03:32 07/09/23 03:36 07/09/23 03:38 Temperature 97.8 F 97.8 F Temperature Source Temporal Temporal Pulse Rate 67 67 Respiratory Rate 19 H 19 H Respiratory Effort Short of Breath Respiratory Depth Normal Respiratory Pattern Normal Blood Pressure 128/54 H 128/54 H Blood Pressure Mean 78 78 Pulse Ox 87 96 Oxygen Delivery Method Room Air Nasal Cannula Nasal Cannula Oxygen Flow Rate (L/min) 2 2 07/09/23 04:48 Temperature 98 F Temperature Source Temporal Pulse Rate 66 Respiratory Rate 19 H Respiratory Effort Respiratory Depth Respiratory Pattern Blood Pressure 120/58 L Blood Pressure Mean 78 Pulse Ox 96 Oxygen Delivery Method Nasal Cannula Oxygen Flow Rate (L/min) 2 Positive well nourished and well developed General Appearance ED: well developed and NAD HEENT Reports TM's clear and moist mucous membranes normocephalic and atraumatic; Negative for trauma or tenderness Tympanic Membrane ED: Yes TM's clear Eyes PERRL and EOMs intact bilaterally General Eye ED: Negative for pale conjunctiva or scleral icterus Neck no lymphadenopathy, supple and no JVD General: Negative for tenderness Chest Wall inspection of chest normal and palpation of chest normal Chest: Negative for tenderness Resp normal respiratory effort and clear to auscultation bilaterally Effort and Inspection: Negative for respiratory distress or pain with movement Auscultation: Negative for rhonchi, wheezes or diminished lung sounds Cardio regular rate, regular rhythm, S1 normal heart sound, S2 normal heart sound and no murmurs Peripheral Pulses: pulses 2+ throughout GI normal to inspection, nondistended, normoactive bowel sounds, soft to palpation,non-tender, non-distended and no masses Back/Spine no CVA tenderness and no thoracic nor lumbar tenderness Back/Spine Narrative: Contracture of left hand and weakness of the left arm. Extremity normal to inspection Extremity Narrative: +1 edema right lower extremity and +2 edema left lower extremity General Extremety ED: Negative for edema General Extremity: Negative for edema Neuro oriented x3, CN's II-XII intact bilaterally, no sensory deficits noted and gait normal Sensorium / Orientation: awake, alert, oriented to person, oriented to place andoriented to time Motor Exam: strength 5/5 throughout and strength abnormal Psych mental status grossly normal Skin no rashes or lesions noted and no wounds MDM MDM MDM Narrative Medical decision making narrative: Patient presents with complaint of generalized weakness for the last week. Differential would be extensive in the patient of his age including cardiac disease versus electrolyte abnormality versus anemia or infectious process. IV established on arrival. EKG obtained showed sinus rhythm with rate of 67 bpm with no acute ST segment changes. While the tech was obtaining the EKG she noted short run of sinus bradycardia with heart rates in the 30s. Basic labs will be obtained. Patient also noted on arrival to be hypoxic with O2 sat of 87% on room air. CBC with differential obtained showed an anemia with hemoglobin of 8.7. He was dropped a gram in the last 4 days and almost 4 g since March. He denies blood in the stool or black tarry stool. Lab Data Attestation: I reviewed the patient's lab results. Labs: Laboratory Results - last 24 hr 07/09/23 03:56 WBC 10.1 RBC 2.86 L Hgb 8.7 L Hct 26.6 L MCV 93.0 MCH 30.4 MCHC 32.7 RDW Std Deviation 47.8 H RDW Coeff of Cati 14.2 Plt Count 286 MPV 10.3 Immature Gran % (Auto) 0.500 Neut % (Auto) 73.6 H Lymph % (Auto) 10.9 L [place] % (Auto) 11.1 H Eos % (Auto) 3.4 Baso % (Auto) 0.5 Absolute Neuts (auto) 7.5 Absolute Lymphs (auto) 1.10 Nucleated RBC % 0 Sodium 138 Potassium 3.8 Chloride 103 Carbon Dioxide 28.0 Anion Gap 7 BUN 59 H Creatinine 2.42 H Estim Creat Clear Calc 27.61 Est GFR (MDRD) Af Amer 33 L Est GFR (MDRD) Non-Af 27 L BUN/Creatinine Ratio 24.4 H Glucose 124 H Calcium 8.4 L Troponin I High Sens 12 B-Natriuretic Peptide 289.5 H Radiography Chest X-Ray - ED: 1 View Diagnostic Testin view chest x-ray obtained interpreted by myself is slight pulmonary congestionwith no evidence of infiltrate. Suspect small bilateral pleural effusions. EKG Initial EKG: Attestation: I personally reviewed and interpreted this EKG as follows: Comments: Sinus rhythm with rate of 67 bpm with no acute ST segment changes Discharge Plan Triage Chief Complaint: Shortness of Breath ED Provider: Shelia Davenport Dx/Rx/DC Orders Clinical Impression: Weakness, Bradycardia, Anemia, CHF (congestive heart failure), Hypoxemia Prescriptions: No Action multivitamin,zk-ovik-yusfnryv tablet tablet 1 tab PO QDAY hydralazine 100 mg tablet 100 mg PO ONCE Qty: 90 3RF Rx Instructions: 100mg in AM, 75mg in afternoon, 75mg in evening latanoprost 0.005 % drops 1 drp EACH EYE HS Patient Comments: M-W- insulin glargine [Basaglar KwikPen U-100 Insulin] 100 unit/mL (3 mL) insulin pen 24 unit subcut DAILY finasteride 5 mg tablet 5 mg PO DAILY (DME) Handicap Placard See Rx Instructions .Route .MEDSUPPLY Qty: 1 0RF Rx Instructions: Length of time: 5 years clopidogrel [Plavix] 75 mg tablet 75 mg PO DAILY Qty: 90 3RF Hold Instructions: Resume on 01/26/23. (DME) pen needle, diabetic [BD Sanaz 2nd Gen Pen Needle] 32 gauge x /32 needle See Rx Instructions .ROUTE .MEDSUPPLY Qty: 50 2RF Rx Instructions: use once daily to adminster insulin as directed. amlodipine 10 mg tablet 10 mg PO DAILY Qty: 90 3RF doxazosin 8 mg tablet 8 mg PO QHS Qty: 90 3RF furosemide [Lasix] 40 mg tablet 40 mg PO DAILY Qty: 90 3RF carvedilol 6.25 mg tablet 6.25 mg PO BID Qty: 60 11RF Rx Instructions: must administer with a meal/food pramipexole 0.125 mg tablet 0.125 mg PO QHS Qty: 90 3RF insulin lispro [Humalog KwikPen Insulin] 100 unit/mL insulin pen 1 unit subcut TIDAC PRN (Reason: SLIDING SCALE) Qty: 15 3RF sertraline 50 mg tablet 50 mg PO QHS Qty: 90 3RF ezetimibe [Zetia] 10 mg tablet 10 mg PO QHS Qty: 90 3RF Rx Instructions: take at bedtime gabapentin 100 mg capsule 100 mg PO BID Qty: 180 3RF gabapentin 300 mg capsule 300 mg PO 2100 Qty: 90 3RF losartan 25 mg tablet 25 mg PO DAILY Qty: 90 3RF hydralazine 25 mg tablet 75 mg PO .COMPLEX Qty: 540 1RF Rx Instructions: 75 mg orally 75mg in afternoon and evening orally.; Primary Care Provider: Jennifer Watt Referrals: Jennifer Watt MD [Primary Care Provider] - Disposition Disposition: Acute Care Hospital [facility] What to do if you have Problems For any increased pain, shortness of breath, bleeding, nausea or vomiting, chestpain, or any unexpected problems, contact your Primary Care Provider. Call [facility] ([phone]) or report to the closest Emergency Room. Call 911 if necessary. 07/09/23 0754 <Electronically signed by Shelia Davenport DO> Cosigner Signature (if applicable): CC: Dr. Jennifer Watt MD ~ Signed [facility] Work Phone: [phone] 450-887508-29-2023 Discharge summary Author Johnathan Huffman [facility] November 09, 2022 9:00pm Note Date/Time November 09, 2022 8: 58pm [facility] Medical Records Department [address] [place] [address] Discharge Summary 11/09/222055 MR#: [id number] Acct: [id number] Name: FRANCISCO THOMAS Rep #:[id number] : 1940 82 From: Johnathan Huffman MD PCP: Dr. Jennifer Watt MD Status:ADM IN Location: [address] Date of Admission: 11/03/22 Primary Care Physician: Dr. Jennifer Watt MD Reason For Visit: GENRALIZAED WEAKNESS Diagnosis Discharge Diagnosis (1) Debility: Status: Acute Code(s): R53.81 - Other malaise (2) Weakness: Status: Acute Code(s): R53.1 - Weakness (3) Fever: Status: Acute Code(s): R50.9 - Fever, unspecified Qualifiers: Fever type: unspecified Qualified Code(s): R50.9 - Fever, unspecified (4) NABILA (acute kidney injury): Status: Acute Code(s): N17.9 - Acute kidney failure, unspecified (5) Heart failure with preserved ejection fraction: Status: Acute Code(s): I50.30 - Unspecified diastolic (congestive) heart failure (6) Iron deficiency anemia: Status: Acute Code(s): D50.9 - Iron deficiency anemia, unspecified (7) Hypertension: Status: Chronic Code(s): I10 - Essential (primary) hypertension (8) Stroke: Status: Acute Code(s): I63.9 - Cerebral infarction, unspecified (9) Left hemiplegia: Status: Acute Code(s): G81.94 - Hemiplegia, unspecified affecting left nondominant side (10) BPH (benign prostatic hyperplasia): Status: Acute Code(s): N40.0 - Benign prostatic hyperplasia without lower urinary tract symptoms (11) Hyperlipidemia: Status: Acute Code(s): E78.5 - Hyperlipidemia, unspecified (12) Neuropathic pain: Status: Acute Code(s): M79.2 - Neuralgia and neuritis, unspecified (13) Diabetes mellitus: Status: Acute Code(s): E11.9 - Type 2 diabetes mellitus without complications (14) Glaucoma: Status: Acute Code(s): H40.9 - Unspecified glaucoma (15) Restless leg syndrome: Status: Acute Code(s): G25.81 - Restless legs syndrome (16) Depression: Status: Acute Code(s): F32.A - Depression, unspecified (17) Obstructive sleep apnea: Status: Acute Code(s): G47.33 - Obstructive sleep apnea (adult) (pediatric) Plan 82 year old male with below past medical history hospitalized for weakness, fever, acute kidney injury, admitted to TCU with debility, here for rehabilitation, strengthening, prior to discharge home with . * Debility - PT/OT. * Pain - Tylenol 1000mg q6h prn pain (1-10). * Bowel - senna/colace 1 tablet bid, Magnesium citrate 300ml daily prn. * Adult immunization - Administer pneumonia vaccine, covid19 vaccine, flu vaccine as appropriate. * DVT prophylaxis - Hold, dual antiplatelet therapy. * Hypertension - Coreg 6.25mg bid, Losartan 25mg daily, Amlodipine 10mg daily, Clonidine 0.1mg bid, Hydralazine 75mg tid. * Stroke - Plavix 75mg daily, Aspirin 81mg daily. * BPH - Doxazosin 8mg qhs. * Hyperlipidemia - Zetia 10mg qhs. * Heart failure preserved ejection fraction - Coreg 6.25mg bid, Losartan 25mg daily, Hydralazine 75mg tid, Furosemide 40mg daily. * Neuropathic pain - Gabapentin 100mg, 100mg, 300mg. * Diabetes Mellitus II - Glargine 14 units daily, Lispro 4 units tidac. * Glaucoma - Latanoprost 1gtt ou qhs. * Nutrition - MVI 1 tablet daily. * Restless leg syndrome - Mirapex 0.125mg qhs. * Depression - Sertraline 50mg qhs. * Dermatitis - Triamcinolone topical bid. Medications at Discharge Home Medications multivitamin,[id number]-kywr-[id number] (Complete Multivitamin tablet) 1 tab PO QDAY supplement 03/03/17 aspirin 81 mg chewable tablet 81 mg PO BREAKFAST heart health 01/02/21 Handicap Placard #1 ea 02/12/21 doxazosin 8 mg tablet 8 mg PO QHS bph 02/24/22 ezetimibe 10 mg tablet (Zetia) 10 mg PO QHS cholesterol 02/24/22 latanoprost 0.005 % eye drops 1 drp EACH EYE HS eyes 02/24/22 pramipexole 0.125 mg tablet 0.125 mg PO QHS parkinsons 02/24/22 sertraline 50 mg tablet 50 mg PO QHS mood 02/24/22 gabapentin 100 mg capsule 100 mg PO BID pain #180 caps 03/18/22 gabapentin 300 mg capsule 300 mg PO 2100 pain #90 caps 03/18/22 losartan 25 mg tablet 25 mg PO DAILY BP 04/12/22 clopidogrel 75 mg tablet (Plavix) 75 mg PO DAILY blood thinner #90 tabs 06/07/22 pen needle, diabetic 32 gauge x 5/32 (BD Sanaz 2nd Gen Pen Needle) #50 ea 06/17/22 clonidine HCl 0.1 mg tablet 0.1 mg PO BID heart #60 tabs 07/09/22 furosemide 40 mg tablet (Lasix) 40 mg PO DAILY water pill #60 tabs 08/03/22 hydralazine 25 mg tablet 75 mg (3 x 25 mg) PO TID BP #270 tabs 08/05/22 carvedilol 6.25 mg tablet 6.25 mg PO BID heart #60 tabs 08/12/22 amlodipine 10 mg tablet 10 mg PO DAILY BP #90 tabs 10/15/22 oxygen #1 ea 10/26/22 insulin glargine 100 unit/mL (3 mL) subcutaneous pen (Basaglar KwikPen U-100 Insulin) 14 unit (0.14 mL) subcut DAILY blood sugar #15 mL 11/03/22 insulin lispro 100 unit/mL subcutaneous pen (Humalog KwikPen (U-100) Insulin) 4 unit (0.04 mL) subcut TIDAC PRN diabetes #15 mL 11/03/22 Hospital Course Operations None Procedures None Summary of Care Provided Minutes Spent on Discharge: 35 Hospital Course: 82 year old male with below past medical history hospitalized for weakness, fever, acute kidney injury, admitted to TCU with debility, here for rehabilitation, strengthening, prior to discharge home with . Discharge home with 11/12/2022, [facility] PT/OT, CCN. Physical Exam Const alert General Appearance: cooperative HEENT normocephalic Eyes PERRL and EOMs intact bilaterally Neck supple, no JVD and no carotid bruits Resp normal respiratory effort, normal air movement and clear to auscultation bilaterally Cardio regular rate and regular rhythm GI normal to inspection, nondistended, normoactive bowel sounds, non-tender and non-distended Extremity normal capillary refill General Extremity: Negative for edema Skin no rashes or lesions noted General Skin Exam: no breakdown Psych affect normal Appearance: appropriate Weight / BMI Weight Weight: 87.09 kg Body Mass Index (BMI) 25.9 ABG / Lab / Microbiology Data 11/04/22 05:24 11/04/22 05:24 Laboratory: Laboratory Results - last 24 hr 11/08/22 22:01: POC Glucose 292 H 11/09/22 06:16: POC Glucose 168 H 11/09/22 11:17: POC Glucose 231 H 11/09/22 16:28: POC Glucose 210 H D/C Instructions Discharge Diet: No restrictions Discharge Activity: Return to Normal Activity, May Shower and Use Walker Weight Bearing Status: Weight bearing as tolerated Call your doctor if you observe: Fever of 101 or Higher, Inability to urinate, Inability to have a bowel movement, Shortness of breath, Dizziness, Fainting spells, Swelling in the ankles, Chest pain and Uncontrolled pain Additional Instructions: rge home with 11/12/2022, [facility] PT/OT, CCN. Please Follow Up With: Jennifer Watt MD When: Within 1 week. Meaningful Use Info Meaningful Use Diagnoses (Choose all that apply): None applicable Discharge Plan Admission Admit Date/Time: 11/03/22 14:30 Primary Reason for Your Visit: Debility. Attending Provider: Johnathan Huffman Chi Primary Care Provider: Jennifer Watt Instructions Additional Instructions / Restrictions: Discharge home with 11/12/2022, [facility] PT/OT, CCN. Discharge Orders/Prescriptions Prescriptions: Continued multivitamin,nv-crcp-dpoggtkt tablet tablet 1 tab PO QDAY furosemide [Lasix] 40 mg tablet 40 mg PO DAILY Qty: 60 3RF aspirin 81 mg tablet,chewable 81 mg PO BREAKFAST latanoprost 0.005 % drops 1 drp EACH EYE HS doxazosin 8 mg tablet 8 mg PO QHS pramipexole 0.125 mg tablet 0.125 mg PO QHS sertraline 50 mg tablet 50 mg PO QHS ezetimibe [Zetia] 10 mg tablet 10 mg PO QHS Rx Instructions: take at bedtime losartan 25 mg tablet 25 mg PO DAILY insulin lispro [Humalog KwikPen Insulin] 100 unit/mL insulin pen 4 unit subcut TIDAC PRN (Reason: diabetes) Qty: 15 0RF Patient Comments: if bs over 130 insulin glargine [Basaglar KwikPen U-100 Insulin] 100 unit/mL (3 mL) insulin pen 14 unit subcut DAILY Qty: 15 6RF gabapentin 100 mg capsule 100 mg PO BID Qty: 180 3RF gabapentin 300 mg capsule 300 mg PO 2100 Qty: 90 3RF clopidogrel [Plavix] 75 mg tablet 75 mg PO DAILY Qty: 90 3RF clonidine HCl 0.1 mg tablet 0.1 mg PO BID Qty: 60 11RF hydralazine 25 mg tablet 75 mg PO TID Qty: 270 3RF carvedilol 6.25 mg tablet 6.25 mg PO BID Qty: 60 11RF Rx Instructions: must administer with a meal/food amlodipine 10 mg tablet 10 mg PO DAILY Qty: 90 3RF Discontinued triamcinolone acetonide 0.1 % cream 1 applic topical BID 10 Days Qty: 30 1RF No Action (DME) Handicap Placard See Rx Instructions .Route .MEDSUPPLY Qty: 1 0RF Rx Instructions: Length of time: 5 years (DME) pen needle, diabetic [BD Sanaz 2nd Gen Pen Needle] 32 gauge x 5/32 needle See Rx Instructions .ROUTE .MEDSUPPLY Qty: 50 2RF Rx Instructions: use once daily to adminster insulin as directed. (DME) oxygen See Rx Instructions .Route .MEDSUPPLY Qty: 1 0RF Rx Instructions: DC ALL OXYGEN ORDERS Referrals / Follow Up: Jennifer Watt MD [Primary Care Provider] - Disposition Disposition (needs filled in before D/C Order can be placed): Home, Self Care 11/09/222099 <Electronically signed by Johnathan Huffman MD> Cosigner Signature (if applicable): CC: Dr. Jennifer Watt MD; Dr. Johnathan Huffman MD~ Signed [facility] Work Phone: [phone] 644-691908-29-2023 Progress note Author Es Lindquist [facility] November 09, 2022 8:17am Note Date/Time November 09, 2022 8: 17am [facility] Medical Records Department [address] [place] [address] Progress Note - Pharmacy 11/09/22812 MR#: [id number] Acct: [id number] Name: FRANCISCO THOMAS Rep #:[id number] : 1940 82 From: Es Lindquist PCP: Dr. Jennifer Watt MD Status:ADM IN Location: [place] [address] TCU RX Drug Regimen Review Subjective/Objective Subjective/Objective: Subjective: DERECK is a 82 YOM who presented to the ED on 10/28 with generalized weakness. At this time he was found to have a fever and elevated WBC. The patient was started on empiric ceftriaxone that was discontinued when blood and urine cultures as well as respiratory panel were all negative. The patient is being admitted to TCU for rehab and strengthening prior to returning home with his .?? Objective: Allergies meloxicam [From Mobic] Allergy (Intermediate, Verified 10/28/22 17:41) itching pravastatin [From Pravachol] Adverse Reaction (Mild, Verified 10/28/22 17:41) myalgia cholestyramine Adverse Reaction (Verified 10/28/22 17:41) hypoglycemia Current Medications Generic Name Dose Route Start Last Admin Trade Name Freq PRN Reason Stop Dose Admin Acetaminophen 1,000 mg 11/03/22 20:22 Acetaminophen 500 Mg Tablet PO Q6H PRN PRN Pain Score 1-10 Amlodipine Besylate 10 mg 11/09/22 10:00 Amlodipine 10 Mg Tablet PO DAILY LJ Aspirin 81 mg 11/04/22 08:00 11/09/22 07:54 Aspirin 81 Mg Tab.Chew PO 81 mg BREAKFAST LJ Administration Carvedilol 6.25 mg 11/08/22 22:00 11/08/22 22:02 Carvedilol 6.25 Mg Tablet PO 6.25 mg BID LJ Administration Clonidine 0.1 mg 11/08/22 22:00 11/08/22 22:02 Clonidine Hcl 0.1 Mg Tablet PO 0.1 mg BID LJ Administration Clopidogrel Bisulfate 75 mg 11/09/22 10:00 Clopidogrel Bisulfate 75 Mg Tablet PO DAILY LJ Doxazosin Mesylate 8 mg 11/03/22 22:00 11/08/22 22:03 Doxazosin 4 Mg Tablet PO 8 mg QHS LJ Administration Ezetimibe 10 mg 11/03/22 22:00 11/08/22 22:03 Ezetimibe 10 Mg Tablet PO 10 mg QHS LJ Administration Furosemide 40 mg 11/09/22 10:00 Furosemide 40 Mg Tablet PO DAILY LJ Gabapentin 300 mg 11/03/22 21:00 11/08/22 22:06 Gabapentin 300 Mg Capsule PO 300 mg 2100 LJ Administration Gabapentin 100 mg 11/03/22 17:00 11/09/22 07:54 Gabapentin 100 Mg Capsule PO 100 mg BIDCM LJ Administration Hydralazine HCl 75 mg 11/03/22 22:00 11/09/22 05:32 Hydralazine 25 Mg Tablet PO 75 mg TID LJ Administration Insulin Glargine 14 unit 11/09/22 10:00 Insulin Glargine-Yfgn 100 Unit/Ml Pen SC DAILY [facility] Insulin Human Lispro 4 unit 11/03/22 16:45 11/09/22 07:54 Insulin Lispro 100 Unit/Ml Insuln.Pen SC 4 units TIDAC [facility] Administration Latanoprost 1 drp 11/03/22 22:00 11/08/22 22:03 Latanoprost 0.005% 1 Bottle EACH EYE 1 drp [facility] Administration Losartan Potassium 25 mg 11/09/22 10:00 Losartan Potassium 25 Mg Tablet PO DAILY LJ Magnesium Citrate 300 ml 11/03/22 20:22 Magnesium Citrate 300 Ml PO DAILY PRN Constipation Multivitamins/Minerals 1 tablet 11/04/22 08:00 11/09/22 07:54 Multivitamins,Ther W-Minerals Tablet PO 1 tablet BREAKFAST [facility] Administration Pramipexole Dihydrochloride 0.125 mg 11/03/22 22:00 11/08/22 22:03 Pramipexole Di-Hcl 0.125 Mg Tablet PO 0.125 mg QHS [facility] Administration Senna/Docusate Sodium 1 tablet 11/08/22 22:00 11/08/22 22:03 Senna/Docusate Sodium 1 Tablet PO 1 tablet BID [facility] Administration Sertraline HCl 50 mg 11/03/22 22:00 11/08/22 22:02 Sertraline 50 Mg Tablet PO 50 mg QHS [facility] Administration Sodium Chloride 10 - 40 ml 11/03/22 15:14 0.9% Saline Lock 10 Ml Syringe IV UD PRN SALINE FLUSH Triamcinolone Acetonide 1 applic 11/08/22 22:00 11/08/22 21:22 Triamcinolone Acetonide 0.1% Cream 15 Gm TOPICAL Not Given BID [facility] Protocol Tuberculin PPD 0.1 ml 11/11/22 10:00 Tuberculin,Purif.Prot.Deriv. 50 Tu/Ml Vial ID 11/11/22 10:01 X1 ONE Problem List (Updated 11/03/22 @ 20:[address] Johnathan Huffman MD) Obstructive sleep apnea (Acute) Neuropathic pain (Acute) Left hemiplegia (Acute) Heart failure with preserved ejection fraction (Acute) Weakness (Acute) Fever (Acute) Depression (Acute) Restless leg syndrome (Acute) Glaucoma (Acute) Diabetes mellitus (Acute) Iron deficiency anemia (Acute) Hyperlipidemia (Acute) BPH (benign prostatic hyperplasia) (Acute) Stroke (Acute) Hypertension (Chronic) Debility (Acute) NABILA (acute kidney injury) (Acute) Vital Signs Temp Pulse Resp BP Pulse Ox O2 Del Method 97.9 F 46 L 16 135/59 H 94 Room Air 11/08/22 11:43 11/09/22 05:32 11/08/22 22:12 11/09/22 05:32 11/08/22 22:12 11/08/22 22:12 Oxygen Delivery Method Room Air Weight: 84.822 kg Body Mass Index (BMI) 25.3 Sodium 140 mmol/L (136-145) 11/04/22 05:24 Potassium 4.5 mmol/L (3.5-5.1) 11/04/22 05:24 Chloride 106 mmol/L (98-107) 11/04/22 05:24 Carbon Dioxide 29.0 mmol/L (21.0-32.0) 11/04/22 05:24 Anion Gap 5 (5-15) 11/04/22 05:24 BUN 43 mg/dL (7-18) H 11/04/22 05:24 Creatinine 1.56 mg/dL (0.70-1.30) H 11/04/22 05:24 Est GFR (MDRD) Af Amer 55 mL/min (>60) L 11/04/22 05:24 Est GFR (MDRD) Non-Af 45 mL/min (>60) L 11/04/22 05:24 BUN/Creatinine Ratio 27.6 RATIO (10-20) H 11/04/22 05:24 Glucose 167 mg/dL (74-106) H 11/04/22 05:24 Assessment/Plan: 1. Pain- Tylenol 1,000 mg po q6h prn for pain (1-10). The resident has not had any prn usage of this medication. Continue to monitor for s/s of pain.? ? 2. Hypertension/HFpEF- Carvedilol 6.25 mg po bid, losartan 25 mg po daily, amlodipine 10 mg po daily, clonidine 0.1 mg po bid, hydralazine 75 mg po tid, and furosemide 40 mg po daily. Continue to monitor BP (135/59 mmHg on 11/09), HR (46 bpm on 11/09), serum potassium and sodium (4.5 mmol/L and 140 mmol/L on 11/04), renal function (SCr 1.56 mg/dL, CrCl 39.38 mL/min, and BUN 43 mg/dL on 11/04) and for lower extremity edema.? 3. Stroke- Clopidogrel 75 mg po daily and aspirin 81 mg po daily. Continue to monitor Hgb (9.3 g/dL), Hct (27.9%), RBC (3.07 M/mm3) and for s/s of bleeding.?? 4. Hyperlipidemia- Ezetimibe 10 mg po qhs. Continue to monitor cholesterol levels (last LDL 121 mg/dL on 04/22/21), LFTs (AST 16 U/L, ALT 25 U/L, and ALP 59 U/L on 11/03/22), and for s/s of myopathy.?? 5. BPH- Doxazosin 8 mg po qhs. Continue to monitor BP and for s/s of orthostatichypotension.? 6. T2DM- Insulin glargine 14 units sc daily and insulin lispro 4 units sc tidac.Continue to monitor blood glucose levels (278 mg/dL on 11/04), A1C (last 6.4% on 01/06/22), and for s/s of hypoglycemia.? 7. Glaucoma- Latanoprost 1 gtt ou qhs. Continue to monitor for blurred vision and stinging/burning sensations.? 8. Restless leg syndrome- Pramipexole 0.125 po qhs. Continue to monitor weight (last 84.8 kg) and for CHANNEL CEMENTER effects such as drowsiness, confusion, agitation/aggression, and delirium.?? 9. Nutrition- Multivitamin 1 tablet po daily.? 10. Dermatitis- Triamcinolone topical bid to affected areas.?? 11. Bowel- Senna/docusate 1 tablet po bid and magnesium citrate 300 mL po daily prn for constipation. The resident has not had any prn usage of magnesium citrate; she does not have a BM on record since being admitted to [facility]. Continue to monitor for s/s of constipation. Assessment/Plan for indications treated with psychotropic medications: 12. Neuropathic pain- Gabapentin po tid (100 mg, 100 mg, then 300 mg). Continue to monitor for CHANNEL CEMENTER and respiratory depression (Beer?s Criteria) and renal function. Please consider a GDR if appropriate.? 13. Depression- Sertraline 50 mg po qhs. Continue to monitor for s/s of suicidalideation (Black Box Warning). GDR likely not indicated.? Medical chart and medication regimen reviewed. The following medication irregularities or issues were identified: *1. An A1C has not been recorded since 01/06/22. The patient?s blood glucose levels are almost consistently > 200. Please consider evaluating and increasing mealtime or basal insulin dose if clinically appropriate. *2. The resident has a diagnosis of chronic anemia and a Hgb 9.3 g/dL, Hct 27.9%, and RBC 3.07 M/mm3. Per chart review, he was taking iron in the past, butis not currently taking it. Please evaluate and restart iron supplementation if clinically appropriate.? Date Date of Note:: 11/09/22 11/09/22816 <Electronically signed by Es Lindquist> Es Lindquist Cosigner Signature (if applicable): CC: ~ Signed [facility] Work Phone: [phone]) [phone] History and physical note Author Johnathan Huffman [facility] November 03, 2022 8:22pm Note Date/Time November 03, 2022 8: 13pm [facility] Medical Records Department [address] [place] [address] History & Physical Exam 11/03/222002 MR#: [id number] Acct: [id number] Name: FRANCISCO THOMAS Rep #:[id number] : 1940 82 From: Johnathan Huffman MD PCP: Dr. Jennifer Watt MD Status:ADM IN Location: [place] [address] HPI - General General Date of Admission: 11/03/22 Date of Service: 11/03/22 Chief Complaint: Here for rehabilitation. HPI Narrative 10/28/2022 FRANCISCO THOMAS, is a 82 Male who presents to [facility] Emergency Department with weakness. Generalized weakness, chronic left hemiparesis from stroke. Weak all over, unable to stand, pivot, started Finasteride recently which is new. Fever 100.4 WBC 14.4, Hemoglobin 10.9, BUN 33, Creatinine 1.70. Urinalysis negative. covid19 negative, flu negative. Blood, urine culture pending. 10/28/2022 Admit to Hospital. PT/OT for weakness. Fever, elevated WBC, etiology unclear. 10/29/2022 Possible viral illness. 10/30/2022 Fever 100.8. Rocephin IV started empirically. ? Viral illness. 10/31/2022 Temperature 99.8. Urine culture negative, blood culture pending. Hold Lasix, Hold Lisinopril for acute kidney injury. 11/01/2022 Feels better, frustrated at lack of source of fever. Stop Rocephin IV. Blood cultures negative, respiratory panel negative. PT/OT for SNF. 11/02/2022 Low grade fever, WBC 12.1. Off antibiotics. 11/02/2022 Dr. Bowling agreed with monitoring off antibiotics. Cultures negative, viral testing negative. 11/03/2022 Admit to TCU with debility, here for rehabilitation, strengthening, prior to discharge home with . 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 mellitus Recurrent inguinal hernia of right side without obstruction or gangrene Restless legs Right pontine CVA Right renal artery stenosis Skin lesion of face SOB (shortness of breath) Type 2 diabetes mellitus Unsteadiness Ventricular tachycardia seen on handtools repairer (02/20/21) Home Medications multivitamin,eg-wtgz-[id number] (Complete Multivitamin tablet) 1 tab PO QDAY supplement 03/03/17 [History Last Taken 11/03/22] aspirin 81 mg chewable tablet 81 mg PO BREAKFAST heart health 01/02/21 [History Last Taken 11/03/22] Handicap Placard #1 ea 02/12/21 [Rx Last Taken Unknown] doxazosin 8 mg tablet 8 mg PO QHS bph 02/24/22 [History Last Taken 11/02/22] ezetimibe 10 mg tablet (Zetia) 10 mg PO QHS cholesterol 02/24/22 [History Last Taken 11/02/22] latanoprost 0.005 % eye drops 1 drp EACH EYE HS eyes 02/24/22 [History Last Taken 11/02/22] pramipexole 0.125 mg tablet 0.125 mg PO QHS parkinsons 02/24/22 [History Last Taken 11/02/22] sertraline 50 mg tablet 50 mg PO QHS mood 02/24/22 [History Last Taken 11/02/22] gabapentin 100 mg capsule 100 mg PO BID pain #180 caps 03/18/22 [Rx Last Taken 11/03/22] gabapentin 300 mg capsule 300 mg PO 2100 pain #90 caps 03/18/22 [Rx Last Taken 11/02/22] losartan 25 mg tablet 25 mg PO DAILY BP 04/12/22 [History Last Taken 10/31/22] clopidogrel 75 mg tablet (Plavix) 75 mg PO DAILY blood thinner #90 tabs 06/07/22[Rx Last Taken 11/03/22] pen needle, diabetic 32 gauge x 5/32 (BD Sanaz 2nd Gen Pen Needle) #50 ea 06/17/22 [Rx Last Taken Unknown] clonidine HCl 0.1 mg tablet 0.1 mg PO BID heart #60 tabs 07/09/22 [Rx Last Taken 10/31/22] furosemide 40 mg tablet (Lasix) 40 mg PO DAILY water pill #60 tabs 08/03/22 [Rx Last Taken 10/30/22] hydralazine 25 mg tablet 75 mg (3 x 25 mg) PO TID BP #270 tabs 08/05/22 [Rx Last Taken 11/03/22] carvedilol 6.25 mg tablet 6.25 mg PO BID heart #60 tabs 08/12/22 [Rx Last Taken 11/03/22] triamcinolone acetonide 0.1 % topical cream 1 applic topical BID topical 10 days#30 grams 10/12/22 [Rx Last Taken Unknown] amlodipine 10 mg tablet 10 mg PO DAILY BP #90 tabs 10/15/22 [Rx Last Taken 11/03/22] oxygen #1 ea 10/26/22 [Rx Last Taken Unknown] insulin glargine 100 unit/mL (3 mL) subcutaneous pen (Basaglar KwikPen U-100 Insulin) 14 unit (0.14 mL) subcut DAILY blood sugar #15 mL 11/03/22 [Rx Last Taken 11/03/22] insulin lispro 100 unit/mL subcutaneous pen (Humalog KwikPen (U-100) Insulin) 4 unit (0.04 mL) subcut TIDAC PRN diabetes #15 mL 11/03/22 [Rx Last Taken 11/03/22] Allergy/AdvReac Type Severity Reaction Status Date / Time meloxicam [From Mobic] Allergy Intermediate itching Verified 10/28/22 17:41 pravastatin [From Pravachol] AdvReac Mild myalgia Verified 10/28/22 17:41 cholestyramine AdvReac hypoglycemi Verified 10/28/22 17:41 a Family History Mother Hypertension Cancer Father Heart disease Diabetes Surgical History History of cataract surgery History of herniorrhaphy History of lumbar laminectomy History of stent insertion of renal artery (08/05/21) Status post laser cataract surgery of left eye Social History household members: spouse and other details: Abigail is his 's name housing: house number of children: 2 current occupational status: retired and other details: worked for [employer] prior to retiring leisure activities: other Smoking Status: Never smoker Electronic Cigarette Use: not used second hand exposure: No alcohol intake: former substance use type: does not use what type of physical activity do you participate in: walking frequency: 1-2 times per week inés/judaism: None seatbelt use: always ROS Constitutional Constitutional: Denies chills, fever(s) or weight gain ENT HEENT: Denies headache(s), nasal congestion or nasal discharge Cardiovascular Cardiovascular: Denies chest pain or palpitations Respiratory/Chest Respiratory/Chest: Denies cough, excessive phlegm production or shortness of breath with exertion Gastrointestinal Gastrointestinal: Denies abdominal pain, nausea or vomiting Genitourinary Genitourinary: Denies dysuria Musculoskeletal Musculoskeletal: Denies joint pain or joint swelling Integumentary Integumentary: Denies rash or wounds Neurologic Neurologic: Denies focal weakness, numbness or tingling Psychiatric Psychiatric: Denies anxiety, auditory hallucinations, depression, homicidal ideation or suicidal ideation Vital Signs Vital Signs Vital Signs: 11/03/22 14:47 11/03/22 14:47 11/03/22 17:57 Temperature 97.8 F Temperature Source Temporal Pulse Rate 55 L 64 Pulse Rhythm Regular Pulse Strength Normal (2+) Respiratory Rate 16 Respiratory Effort Normal Non-Labored Respiratory Depth Normal Respiratory Pattern Normal Blood Pressure 127/57 H 141/67 H Blood Pressure Mean 80 91 Blood Pressure Source Monitor Monitor Blood Pressure Position Semi-Fowlers Sitting Blood Pressure Location Right Arm Right Arm Pulse Ox 92 Oxygen Delivery Method Room Air Room Air Weight Weight: 84.822 kg Body Mass Index (BMI) 25.3 Physical Exam Const alert General Appearance: cooperative HEENT normocephalic Eyes PERRL and EOMs intact bilaterally Neck supple, no JVD and no carotid bruits Resp normal respiratory effort, normal air movement and clear to auscultation bilaterally Cardio regular rate and regular rhythm GI normal to inspection, nondistended, normoactive bowel sounds, non-tender and non-distended Extremity normal capillary refill General Extremity: Negative for edema Skin no rashes or lesions noted General Skin Exam: no breakdown Neuro Neuro Narrative: Left hemiplegia. Psych affect normal Appearance: appropriate Results Lab / Micro Data Labs: Laboratory Results - last 24 hr 11/03/22 16:31: POC Glucose 266 H Assessment & Plan Assessment/Plan (1) Debility: (2) Weakness: (3) Fever: QUALIFIERS: Fever type: unspecified Qualified Code(s): R50.9 - Fever, unspecified (4) NABILA (acute kidney injury): (5) Heart failure with preserved ejection fraction: (6) Iron deficiency anemia: (7) Hypertension: (8) Stroke: (9) Left hemiplegia: (10) BPH (benign prostatic hyperplasia): (11) Hyperlipidemia: (12) Neuropathic pain: (13) Diabetes mellitus: (14) Glaucoma: (15) Restless leg syndrome: (16) Depression: (17) Obstructive sleep apnea: PLAN: Plan 82 year old male with below past medical history hospitalized for weakness, fever, acute kidney injury, admitted to TCU with debility, here for rehabilitation, strengthening, prior to discharge home with . * Debility - PT/OT. * Pain - Tylenol 1000mg q6h prn pain (1-10). * Bowel - senna/colace 1 tablet bid, Magnesium citrate 300ml daily prn. * Adult immunization - Administer pneumonia vaccine, covid19 vaccine, flu vaccine as appropriate. * DVT prophylaxis - Hold, dual antiplatelet therapy. * Hypertension - Coreg 6.25mg bid, Losartan 25mg daily, Amlodipine 10mg daily, Clonidine 0.1mg bid, Hydralazine 75mg tid. * Stroke - Plavix 75mg daily, Aspirin 81mg daily. * BPH - Doxazosin 8mg qhs. * Hyperlipidemia - Zetia 10mg qhs. * Heart failure preserved ejection fraction - Coreg 6.25mg bid, Losartan 25mg daily, Hydralazine 75mg tid, Furosemide 40mg daily. * Neuropathic pain - Gabapentin 100mg, 100mg, 300mg. * Diabetes Mellitus II - Glargine 14 units daily, Lispro 4 units tidac. * Glaucoma - Latanoprost 1gtt ou qhs. * Nutrition - MVI 1 tablet daily. * Restless leg syndrome - Mirapex 0.125mg qhs. * Depression - Sertraline 50mg qhs. * Dermatitis - Triamcinolone topical bid. 11/03/222021 <Electronically signed by Johnathan Huffman MD> Cosigner Signature (if applicable): CC: Dr. Jennifer Watt MD; Dr. Johnathan Huffman MD~ Signed [facility] Work Phone: 1(634) 986-712308-23-2023 Progress note Author [facility] November 03, 2022 11:27am Note Date/Time November 03, 2022 6: 26am [facility] Medical Records Department [address] [place] [id number] Progress Note - Hospitalist 08/23/23 0626 MR#: [id number] Acct: [id number] Name: FRANCISCO THOMAS Rep #:[id number] : 1940 82 From: Johana Archuleta MD PCP: Dr. Jennifer Watt MD Status:ADM IN Location: [place] [address] Reason for Visit Reason for Visit: Diagnoses Retention of urine, unspecified (10/29/22) Fever, unspecified (10/29/22) Weakness (10/29/22) Subjective Subjective Patient with no acute events overnight per self per nursing staff. Notes he is feeling well and doing well. He does not actually need any oxygen during the day he is only been using it supplemental at night as he is normally on BiPAP with it to bleed into it. He is eager for transition to TCU and is amenable once precertification is obtained. Repeat chest x-ray PA and lateral to be cautious obtained this morning with no acute findings. Patient remained afebrile overnight. Patient denies chills, nausea, emesis, abdominal pain, chest pain or dyspnea. Objective Data Objective Data Vital Signs: Vital Signs Temp Pulse Resp BP Pulse Ox O2 Del Method O2 Flow Rate 97.7 F L 63 16 150/63 H 95 Bi-pap 2 11/03/22 03:15 11/03/22 06:15 11/03/22 03:15 11/03/22 06:15 11/03/22 03:15 11/03/22 05:23 11/03/22 03:15 Oxygen Flow Rate (L/min) 2 Oxygen Delivery Method Bi-pap Weight: 183 lb 3.266 oz Body Mass Index (BMI) 24.8 Intake & Output: Intake and Output for Last 24 Hours 11/01/22 11/02/22 11/03/22 23:59 23:59 23:59 Intake Total 1640 / 1640 1000 / 1240 340 / 340 Output Total 1800 / 1800 900 / 2200 1700 / 1700 Balance -160 / -160 100 / -960 -1360 / -1360 Lab / Micro Data 11/03/22 05:30 11/03/22 05:30 Labs: Laboratory Results - last 24 hr 11/02/22 05:02: ESR 76 H, C-React Prot Ext Range 98.40 H 11/02/22 08:35: POC Glucose 219 H 11/02/22 11:56: POC Glucose 279 H 11/02/22 16:53: POC Glucose 258 H 11/02/22 21:09: POC Glucose 167 H 11/03/22 05:30: WBC 10.2, RBC 3.02 L, Hgb 9.1 L, Hct 27.6 L, MCV 91.4, MCH 30.1,MCHC 33.0, RDW Std Deviation 48.5 H, RDW Coeff of Cait 14.4, Plt Count 234, MPV 10.7, Immature Gran % (Auto) 1.500 H, Neut % (Auto) 60.9, Lymph % (Auto) 17.7 L,[place] % (Auto) 12.7 H, Eos % (Auto) 6.4 H, Baso % (Auto) 0.8, Absolute Neuts (auto) 6.2, Absolute Lymphs (auto) 1.81, Nucleated RBC % 0 Micro: Microbiology 11/02/22 12:55 Stool Stool Occult Blood (DAX) - Final 11/01/22 12:45 Mucosa - Nose Coronavirus COVID-19 PCR - Final 11/01/22 12:45 Mucosa - Nose Respiratory Panel (PCR) - Final 10/28/22 18:50 Blood Culture (Wb) - Right Hand Blood Culture - Preliminary No growth in 48 hours. 10/28/22 18:40 Blood Culture (Wb) - Anticubital Right Blood Culture - Preliminary No growth in 48 hours. 10/28/22 19:34 Urine, Clean Catch Urine Culture - Final Culture exhibits no growth. 10/28/22 18:50 Nasal Secretion SARS-CoV-2 & FLU Antigen (Rapid) - Final Physical Exam Narrative Physical Examination: General: Awake, alert, oriented x 3 and cooperative, seated upright in PCU bed, waking up, denies any complaints. Skin: Normal color, normal turgor, no icterus, no cyanosis except for occasionalstaged ecchymoses likely related with lab draws. HEENT: AT/NC, EOMI, PERRLA, MMM. Lungs: Mild diminished, greater bases, left greater than right, appropriate effort, no rales, ronchi or wheezing. Heart: Bradycardic with regular rhythm; no gallop, rub audible. Abdomen: Soft, NTTP, ND, normal BS. Extremities: No cyanosis, clubbing, or edema. Neurological: Patient awake, alert, oriented as noted, cognitive function intact; pupils equally reactive to light and accommodation, cranial nerves II-XII grossly normal, moving all 4 extremities, no focal deficits, strength improved, mildly to moderately global decrease. Psychiatric: Affect appears mildly fatigued is just awakening but otherwise normal, no acute evidence of depressive or anxiety feelings. 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 ED on 10/28/22 with history of increased weakness and fatigue unable to even get up from his bed incidentally noted to have been started on finasteride the day prior for BPH with reported chills but no fevers however he was noted to be low- grade upon ED presentation as well as mild hypoxia prompting further evaluation. #1. Adult FTT, Fatigue, Malaise, FUO possibly secondary to Viral etiology: Initial ED evaluation with CBC with WBC 14.4 with left shift, urine culture withno growth, rapid SARS COVID influenza antigen negative, blood culture x2 with nogrowth, obtained full respiratory viral panel as well as COVID PCR to be cautious which were both also negative, CRP and ESR obtained with ESR 68 and CRP 97.10, procalcitonin also obtained and noted to be 0.14, but again blood cultureand urine cultures were negative. 11/01/22 after dose for day d/c IV Rocephin given negative cultures and since d/c low grade T and mild WBC elevation 11/02/22CBC w/ WBC 12.1 with L shift requested repeat 11/02/22 CRP/ESR requested w/ CRP 98.40/ESR 76. To be cautious discussed case and patient was evaluated by infectious disease who remained amenable to patient transitioning off antibiotictherapy and once skilled bed available to transition to their facility with planned outpatient follow-up labs and continued close monitoring in that setting. 11/03/22 CBC w/ 10.2 and remained afebrile overnight. Once precertification obtained patient transitioned to TCU in stable condition for continued therapies with requested PCP follow-up. #2. Chronic normocytic anemia: Admission hemoglobin 10.9, baseline has been 8-9, trending now more that normal range, 11/03/2022 hemoglobin 9.1 with guiac negative of note. #3. Hypertension: Continue home regimen including Norvasc, clonidine, Cardura, Lasix, losartan, PRN hydralazine. #4. Hyperlipidemia: We will continue patient home Zetia regimen, not on statin,defer to outpatient, #5. Diabetes mellitus type II with chronic neuropathy: Hold oral home regimen, continue home insulin regimen, ADA diet, accu checks w/ ISS, continue patient home chronic gabapentin regimen. #6. History CVA: Patient with history of stroke with chronic left-sided hemiplegia/facial droop, continue patient home aspirin, Plavix, Zetia as patienthas myalgias with statin therapy per allergy listed, hypertensive regimen is noticeable diabetic regimen with alterations as noted. #7. CKD stage IV: Admission BUN/creatinine 33/1.70, baseline creatinine noted primarily 1.6-2.2, 11/01/2022 BUN/creatinine 46/2.02-->11/03/22 BUN/Cr 48/1.61. #8. Chronic recurrent left-sided pleural effusion: Continue patient home Lasix oral regimen, encourage out of bed and I-S. Disease evaluated patient 11/02/2022nd at this point they have no concerns that this could be associated with his low-grade temperature presentation or inflammatory marker elevation. All cultures have remained negative. #9. History of renal artery stenosis: Status post PCI, continue aspirin, Plavix, Zetia as statin intolerance noted, hypertensive regimen as well as diabetic regimen as noted. #10. Restless leg syndrome: We will continue patient home Mirapex regimen. #11. BPH: We will continue patient home Flomax regimen. Had recently been initiated on finasteride but this was until his Flomax was reinitiated as he hadbeen out. #12. JOHN: BIPAP q HS. #13. DVT prophylaxis: Had been on lovenox but this was d/c secondary to Hgb concerns prior. #14. CODE status: Full Code. Charges/Coding Visit Charges Inpatient E&M: 12869 Subs Hosp L2 11/03/22 1127 <Electronically signed by Johana Archuleta MD> Cosigner Signature (if applicable): CC: ~ Signed [facility] Work Phone: 1(321) 704-887208-23-2023 Discharge summary Author Johana Archuleta [facility] November 03, 2022 11:24am Note Date/Time November 03, 2022 11 :24am [facility] Medical Records Department [address] [place] [address] Discharge Summary 11/03/22 1123 MR#: [id number] Acct: [id number] Name: FRANCISCO THOMAS Rep #:[id number] : 1940 82 From: Johana Archuleta MD PCP: Dr. Jennifer Watt MD Status:ADM IN Location: [place] [address] Providers Date of Admission: 10/29/22 Date of Discharge: 11/03/22 Primary Care Physician: Dr. Jennifer Watt MD Consultations 11/01/22 14:25 Consult: Infectious Disease Routine Consulting Provider: Jonathan Bowling Reason for Consult: FUO EMERGENT Consult: No MD Notified: Yes Date Notified: 11/01/22 Time Notified: 14:25 Method of Notification: Text Reason For Visit: GENERALIZED WEAKNESS Diagnosis Discharge Diagnosis (1) Fever: Status: Acute Code(s): R50.9 - Fever, unspecified Qualifiers: Fever type: unspecified Qualified Code(s): R50.9 - Fever, unspecified Plan: Discharge Diagnoses: #1. Adult FTT, Fatigue, Malaise, FUO possibly secondary to suspected Viral etiology #2. Chronic normocytic anemia #3. Hypertension #4. Hyperlipidemia #5. Diabetes mellitus type II with chronic neuropathy #6. History CVA #7. CKD stage IV #8. Chronic recurrent small left-sided pleural effusion #9. History of renal artery stenosis #10. Restless leg syndrome #11. BPH #12. JOHN #13. CODE status: Full Code. Medications at Discharge Home Medications multivitamin,[id number] (Complete Multivitamin tablet) 1 tab PO QDAY supplement 03/03/17 aspirin 81 mg chewable tablet 81 mg PO BREAKFAST heart health 01/02/21 Handicap Placard #1 ea 02/12/21 doxazosin 8 mg tablet 8 mg PO QHS bph 02/24/22 ezetimibe 10 mg tablet (Zetia) 10 mg PO QHS cholesterol 02/24/22 latanoprost 0.005 % eye drops 1 drp EACH EYE HS eyes 02/24/22 pramipexole 0.125 mg tablet 0.125 mg PO QHS parkinsons 02/24/22 sertraline 50 mg tablet 50 mg PO QHS mood 02/24/22 gabapentin 100 mg capsule 100 mg PO BID pain #180 caps 03/18/22 gabapentin 300 mg capsule 300 mg PO 2100 pain #90 caps 03/18/22 losartan 25 mg tablet 25 mg PO DAILY BP 04/12/22 clopidogrel 75 mg tablet (Plavix) 75 mg PO DAILY blood thinner #90 tabs 06/07/22 pen needle, diabetic 32 gauge x 5/32 (BD Sanaz 2nd Gen Pen Needle) #50 ea 06/17/22 clonidine HCl 0.1 mg tablet 0.1 mg PO BID #60 tabs 07/09/22 furosemide 40 mg tablet (Lasix) 40 mg PO DAILY #60 tabs 08/03/22 hydralazine 25 mg tablet 75 mg (3 x 25 mg) PO TID BP #270 tabs 08/05/22 carvedilol 6.25 mg tablet 6.25 mg PO BID #60 tabs 08/12/22 triamcinolone acetonide 0.1 % topical cream 1 applic topical BID 10 days #30 grams 10/12/22 amlodipine 10 mg tablet 10 mg PO DAILY BP #90 tabs 10/15/22 oxygen #1 ea 10/26/22 insulin glargine 100 unit/mL (3 mL) subcutaneous pen (Basaglar KwikPen U-100 Insulin) 14 unit (0.14 mL) subcut DAILY #15 mL 11/03/22 insulin lispro 100 unit/mL subcutaneous pen (Humalog KwikPen (U-100) Insulin) 4 unit (0.04 mL) subcut TIDAC PRN diabetes #15 mL 11/03/22 Hospital Course Procedures None and EKG Summary of Care Provided Minutes Spent on Discharge: 35 Hospital Course: The patient is an 82 y/o F w/ PMHx: CKD stage IV, Hx CVA with residual left- sided weakness/facial droop, HTN, HLD, JOHN on BIPAP, Diabetes mellitus type II with chronic neuropathy, Chronic anemia, RLS, Hx R renal artery stenosis s/p PCIwho presented to the [facility] ED on 10/28/22 with history of increased weakness and fatigue unable to even get up from his bed incidentally noted to have been started on finasteride the day prior for BPH with reported chills but no fevers however he was noted to be low- grade upon ED presentation as well as mild hypoxia prompting further evaluation. Initial ED evaluation with CBC with WBC 14.4 with left shift, urine culture with no growth, rapid SARS COVID influenza antigen negative, blood culture x2 with no growth, obtained full respiratory viral panel as well as COVID PCR to be cautious which were both also negative, CRP and ESR obtained with ESR 68 and CRP 97.10, procalcitonin also obtained and noted to be 0.14, but again blood culture and urine cultures were negative. 11/01/22 after dose for day d/c IV Rocephin given negative cultures and since d/césar grade T and mild WBC elevation 11/02/22 CBC w/ WBC 12.1 with L shift requested repeat 11/02/22 CRP/ESR requested w/ CRP 98.40/ESR 76. To be cautious discussed case and patient was evaluated by infectious disease who remained amenable to patient transitioning off antibiotic therapy and once skilled bed available to transition to their facility with planned outpatient follow-up labsand continued close monitoring in that setting. 11/03/22 CBC w/ 10.2 and remainedafebrile overnight. Admission hemoglobin 10.9, baseline has been 8-9, trending now more that normal range, 11/03/2022 hemoglobin 9.1 with guiac negative of note. Admission BUN/creatinine 33/1.70, baseline creatinine noted primarily 1.6-2.2, 11/01/2022 BUN/creatinine 46/2.02-->11/03/22 BUN/Cr 48/1.61. 11/03/22 CXR PA and lateral obtained and no marked findings. Continued on q HS BIPAP for his JOHN. PT/OT/case management consulted and followed. Once precertification obtained patient transitioned to TCU in stable condition for continued therapieswith requested PCP follow-up. Weight / BMI Weight Weight: 183 lb 3.266 oz Body Mass Index (BMI) 24.8 ABG / Lab / Microbiology Data 11/03/22 05:30 11/03/22 05:30 Laboratory: Laboratory Results - last 24 hr 11/02/22 11:56: POC Glucose 279 H 11/02/22 16:53: POC Glucose 258 H 11/02/22 21:09: POC Glucose 167 H 11/03/22 05:30: WBC 10.2, RBC 3.02 L, Hgb 9.1 L, Hct 27.6 L, MCV 91.4, MCH 30.1,MCHC 33.0, RDW Std Deviation 48.5 H, RDW Coeff of Cait 14.4, Plt Count 234, MPV 10.7, Immature Gran % (Auto) 1.500 H, Neut % (Auto) 60.9, Lymph % (Auto) 17.7 L,[place] % (Auto) 12.7 H, Eos % (Auto) 6.4 H, Baso % (Auto) 0.8, Absolute Neuts (auto) 6.2, Absolute Lymphs (auto) 1.81, Nucleated RBC % 0, Sodium 140, Potassium 4.8, Chloride 107, Carbon Dioxide 30.0, Anion Gap 3 L, BUN 48 H, Creatinine 1.61 H, Estim Creat Clear Calc 38.16, Est GFR (MDRD) Af Amer 53 L, Est GFR (MDRD) Non-Af 44 L, BUN/Creatinine Ratio 29.8 H, Glucose 154 H, Calcium 8.4 L, Total Bilirubin 0.20, AST 16, ALT 25, Alkaline Phosphatase 59, Total Protein 6.1 L, Albumin 2.3 L, Globulin 3.8, Albumin/Globulin Ratio 0.6 L 11/03/22 08:44: POC Glucose 182 H Microbiology: Microbiology 10/28/22 18:50 Blood Culture (Wb) - Right Hand Blood Culture - Final No growth in 5 days. 10/28/22 18:40 Blood Culture (Wb) - Anticubital Right Blood Culture - Final No growth in 5 days. 11/02/22 12:55 Stool Stool Occult Blood (DAX) - Final 11/01/22 12:45 Mucosa - Nose Coronavirus COVID-19 PCR - Final 11/01/22 12:45 Mucosa - Nose Respiratory Panel (PCR) - Final 10/28/22 19:34 Urine, Clean Catch Urine Culture - Final Culture exhibits no growth. 10/28/22 18:50 Nasal Secretion SARS-CoV-2 & FLU Antigen (Rapid) - Final Radiography Diagnostic Testing: Radiology Impression Chest X-Ray 11/03/22 07:55 IMPRESSION: Increased atelectasis at the right base with elevation of the right hemidiaphragm. No active or acute cardiopulmonary disease. Electronically Signed: Hakan Damon MD at 9:47 EDT , Meaningful Use Info Meaningful Use Diagnoses (Choose all that apply): None applicable Discharge Plan Admission Admit Date/Time: 10/29/22 16:29 Primary Reason for Your Visit: FUO, unclear etiology, possibly viral etiology, Adult FTT Attending Provider: Johana Archuleta Primary Care Provider: Jennifer Watt Consulting Providers: Tato Avendaño; Adiel Umanzor; Jonathan Bowling Discharge Orders/Prescriptions Prescriptions: Continued multivitamin,vu-klsi-yrglgtjt tablet tablet 1 tab PO QDAY furosemide [Lasix] 40 mg tablet 40 mg PO DAILY Qty: 60 3RF aspirin 81 mg tablet,chewable 81 mg PO BREAKFAST latanoprost 0.005 % drops 1 drp EACH EYE HS doxazosin 8 mg tablet 8 mg PO QHS pramipexole 0.125 mg tablet 0.125 mg PO QHS sertraline 50 mg tablet 50 mg PO QHS ezetimibe [Zetia] 10 mg tablet 10 mg PO QHS Rx Instructions: take at bedtime losartan 25 mg tablet 25 mg PO DAILY (DME) Handicap Placard See Rx Instructions .Route .MEDSUPPLY Qty: 1 0RF Rx Instructions: Length of time: 5 years gabapentin 100 mg capsule 100 mg PO BID Qty: 180 3RF gabapentin 300 mg capsule 300 mg PO 2100 Qty: 90 3RF clopidogrel [Plavix] 75 mg tablet 75 mg PO DAILY Qty: 90 3RF (DME) pen needle, diabetic [BD Sanaz 2nd Gen Pen Needle] 32 gauge x 5/32 needle See Rx Instructions .ROUTE .MEDSUPPLY Qty: 50 2RF Rx Instructions: use once daily to adminster insulin as directed. clonidine HCl 0.1 mg tablet 0.1 mg PO BID Qty: 60 11RF hydralazine 25 mg tablet 75 mg PO TID Qty: 270 3RF carvedilol 6.25 mg tablet 6.25 mg PO BID Qty: 60 11RF Rx Instructions: must administer with a meal/food triamcinolone acetonide 0.1 % cream 1 applic topical BID 10 Days Qty: 30 1RF amlodipine 10 mg tablet 10 mg PO DAILY Qty: 90 3RF (DME) oxygen See Rx Instructions .Route .MEDSUPPLY Qty: 1 0RF Rx Instructions: DC ALL OXYGEN ORDERS Changed insulin lispro [Humalog KwikPen Insulin] 100 unit/mL insulin pen 4 unit subcut TIDAC PRN (Reason: diabetes) Qty: 15 0RF Patient Comments: if bs over 130 insulin glargine [Basaglar KwikPen U-100 Insulin] 100 unit/mL (3 mL) insulin pen 14 unit subcut DAILY Qty: 15 6RF Referrals / Follow Up: Jennifer Watt MD [Primary Care Provider] - (Follow-up within 1-2 days of SNF discharge; however if the SNF stay is prolonged recommended follow-up in 1-2 weeks to review admission.) Disposition Disposition (needs filled in before D/C Order can be placed): [facility] Facility Charges/Coding Visit Charges Inpatient E&M: 22379 Disch Hosp >30min 11/03/22 1124 <Electronically signed by Johana Archuleta MD> Cosigner Signature (if applicable): CC: Dr. Johana Archuleta MD; Dr. Jennifer Watt MD~ Signed [facility] Work Phone: [phone]) [phone] Discharge summary Author Johana Archuleta [facility] November 03, 2022 11:18am Note Date/Time November 03, 2022 11 :18am [facility] Medical Records Department [address] [place] [address] Transfer to [facility] MR#: [id number] Acct: [id number] Name: FRANCISCO THOMAS Rep #:[id number] : 1940 82 From: Johana Archuleta MD PCP: Dr. Jennifer Watt MD Status:ADM IN Certification of patient admission REQUIRED AT TIME OF ADMISSION. I CERTIFY THAT POST-HOSPITAL ECF SERVICES ARE REQUIRED TO BE GIVEN ON AN IN-PATIENT BASIS BECAUSE OF THE ABOVE NAMED PATIENT'S NEED FOR USP CARE ON A CONTINUING BASIS FOR THE CONDITION(S) FOR WHICH HE/SHE WAS RECEIVING IN-PATIENT HOSPITAL SERVICES PRIOR TO HIS/HER TRANSFER TO THE ECF. 11/03/22 1118<Electronically signed by Johana Archuleta MD> Diet Diet Order/Speech Therapy: 11/01/22 10:53 Diet: Cardiac: Calorie-Controlled Food consistency:: Regular Liquid Consistency:: Regular/Thin Is pt able to select menu?: Yes How many daily calories?: 1999 calorie Routine Orders/Code Status Enema Type: Fleetz Enema Frequency: Daily PRN Suppository Type: Dulcolax 10mg Suppository Frequency: Daily PRN Keep PO Greater than or Equal to (%): 92 Routine Lab Work: - (Repeat CBC, BMP within 3-5 days.) Code Status: Full Code Suggestions for Active Care Change Position every (hours): 2 Hours to sit in a chair: 5 Times a day to sit in chair: 3 Therapies Weight Bearing: Full weight bearing Occupational Therapy: Eval and Treat Speech Therapy: Eval and Treat Problem/Diagnosis (1) Fever: Status: Acute Code(s): R50.9 - Fever, unspecified Comment: Discharge Diagnoses: #1. Adult FTT, Fatigue, Malaise, FUO possibly secondary to suspected Viral etiology #2. Chronic normocytic anemia #3. Hypertension #4. Hyperlipidemia #5. Diabetes mellitus type II with chronic neuropathy #6. History CVA #7. CKD stage IV #8. Chronic recurrent small left-sided pleural effusion #9. History of renal artery stenosis #10. Restless leg syndrome #11. BPH #12. JOHN #13. CODE status: Full Code. 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 ED on 10/28/22 with history of increased weakness and fatigue unable to even get up from his bed incidentally noted to have been started on finasteride the day prior for BPH with reported chills but no fevers however he was noted to be low- grade upon ED presentation as well as mild hypoxia prompting further evaluation. Initial ED evaluation with CBC with WBC 14.4 with left shift, urine culture with no growth, rapid SARS COVID influenza antigen negative, blood culture x2 with no growth, obtained full respiratory viral panel as well as COVID PCR to be cautious which were both also negative, CRP and ESR obtained with ESR 68 and CRP 97.10, procalcitonin also obtained and noted to be 0.14, but again blood culture and urine cultures were negative. 11/01/22 after dose for day d/c IV Rocephin given negative cultures and since d/césar grade T and mild WBC elevation 11/02/22 CBC w/ WBC 12.1 with L shift requested repeat 11/02/22 CRP/ESR requested w/ CRP 98.40/ESR 76. To be cautious discussed case and patient was evaluated by infectious disease who remained amenable to patient transitioning off antibiotic therapy and once skilled bed available to transition to their facility with planned outpatient follow-up labsand continued close monitoring in that setting. 11/03/22 CBC w/ 10.2 and remainedafebrile overnight. Admission hemoglobin 10.9, baseline has been 8-9, trending now more that normal range, 11/03/2022 hemoglobin 9.1 with guiac negative of note. Admission BUN/creatinine 33/1.70, baseline creatinine noted primarily 1.6-2.2, 11/01/2022 BUN/creatinine 46/2.02-->11/03/22 BUN/Cr 48/1.61. 11/03/22 CXR PA and lateral obtained and no marked findings. Continued on q HS BIPAP for his JOHN. PT/OT/case management consulted and followed. Once precertification obtained patient transitioned to TCU in stable condition for continued therapieswith requested PCP follow-up. Allergies/Procedures Done in Hospital Allergies meloxicam [From Mobic] Allergy (Intermediate, Verified 10/28/22 17:41) itching pravastatin [From Pravachol] Adverse Reaction (Mild, Verified 10/28/22 17:41) myalgia cholestyramine Adverse Reaction (Verified 10/28/22 17:41) hypoglycemia Procedures: EKG Type of Care/Length of Stay Estimated LOS: Convalescent Care Less Than 30 days Type of Care Needed: Skilled Rehab Potential: Good Prognosis: Good Additional Orders/Day of Discharge Additional Orders: (1) HOB (2) IS 10x/hr 7a-7p while awake (3) OOB to chair for all meals (4) Continue aspiration and fall precautions Day of Discharge: 11/03/22 Dietary and Speech Recommendations Dietitian Recommendations/Changes: RD will adjust diet to 2000CCD/Cardiac to manage medical conditions. Discharge Plan Admission Admit Date/Time: 10/29/22 16:29 Primary Reason for Your Visit: FUO, unclear etiology, possibly viral etiology, Adult FTT Attending Provider: Johana Archuleta Primary Care Provider: Jennifer Watt Consulting Providers: Tato Avendaño; Adiel Umanzor; Jonathan Bowling Discharge Orders/Prescriptions Prescriptions: Continued multivitamin,uu-ysag-deyxzwms tablet tablet 1 tab PO QDAY furosemide [Lasix] 40 mg tablet 40 mg PO DAILY Qty: 60 3RF aspirin 81 mg tablet,chewable 81 mg PO BREAKFAST latanoprost 0.005 % drops 1 drp EACH EYE HS doxazosin 8 mg tablet 8 mg PO QHS pramipexole 0.125 mg tablet 0.125 mg PO QHS sertraline 50 mg tablet 50 mg PO QHS ezetimibe [Zetia] 10 mg tablet 10 mg PO QHS Rx Instructions: take at bedtime losartan 25 mg tablet 25 mg PO DAILY (DME) Handicap Placard See Rx Instructions .Route .MEDSUPPLY Qty: 1 0RF Rx Instructions: Length of time: 5 years gabapentin 100 mg capsule 100 mg PO BID Qty: 180 3RF gabapentin 300 mg capsule 300 mg PO 2100 Qty: 90 3RF clopidogrel [Plavix] 75 mg tablet 75 mg PO DAILY Qty: 90 3RF (DME) pen needle, diabetic [BD Sanaz 2nd Gen Pen Needle] 32 gauge x 5/32 needle See Rx Instructions .ROUTE .MEDSUPPLY Qty: 50 2RF Rx Instructions: use once daily to adminster insulin as directed. clonidine HCl 0.1 mg tablet 0.1 mg PO BID Qty: 60 11RF hydralazine 25 mg tablet 75 mg PO TID Qty: 270 3RF carvedilol 6.25 mg tablet 6.25 mg PO BID Qty: 60 11RF Rx Instructions: must administer with a meal/food triamcinolone acetonide 0.1 % cream 1 applic topical BID 10 Days Qty: 30 1RF amlodipine 10 mg tablet 10 mg PO DAILY Qty: 90 3RF (DME) oxygen See Rx Instructions .Route .MEDSUPPLY Qty: 1 0RF Rx Instructions: DC ALL OXYGEN ORDERS Changed insulin lispro [Humalog KwikPen Insulin] 100 unit/mL insulin pen 4 unit subcut TIDAC PRN (Reason: diabetes) Qty: 15 0RF Patient Comments: if bs over 130 insulin glargine [Basaglar KwikPen U-100 Insulin] 100 unit/mL (3 mL) insulin pen 14 unit subcut DAILY Qty: 15 6RF Referrals / Follow Up: Jennifer Watt MD [Primary Care Provider] - (Follow-up within 1-2 days of SNF discharge; however if the SNF stay is prolonged recommended follow-up in 1-2 weeks to review admission.) Disposition Disposition (needs filled in before D/C Order can be placed): [facility] (1) Fever Qualifiers: Fever type: unspecified Qualified Code(s): R50.9 - Fever, unspecified 11/03/22 1118 <Electronically signed by Johana Archuleta MD> Cosigner Signature (if applicable): CC: Dr. Tato Avendaño MD; Dr. Jennifer Watt MD; Dr. Adiel Umanzor MD; Dr.Robert Tawnya MD ~ [facility] Work Phone: 1(973) 800-227208-22-2023 Progress note Author [facility] November 02, 2022 3:33pm Note Date/Time November 02, 2022 6: 22am [facility] Medical Records Department [address] [place] [address] Progress Note - Hospitalist 11/02/22621 MR#: [id number] Acct: [id number] Name: FRANCISCO THOMAS Rep #:[id number] : 1940 82 From: Johana Archuleta MD PCP: Dr. Jennifer Watt MD Status:ADM IN Location: [facility] [id number] Reason for Visit Reason for Visit: Diagnoses Retention of urine, unspecified (10/29/22) Fever, unspecified (10/29/22) Weakness (10/29/22) Subjective Subjective Patient with no acute events overnight per self per nursing report except did have mild low-grade temperature but not a fever and WBC did rise mildly to 12.1 but patient feels well and again eager for discharge to skilled facility still awaiting insurance allowance/precertification. Patient given discontinuation ofantibiotic therapy the day prior and mild low-grade temperature as well as mild WC elevation did have evaluation today by infectious disease and they felt givenhis negative cultures it was appropriate to continue off antibiotic therapies and continue to monitor. They are amenable for him transitioning to skilled facility repeat labs and ongoing assessment if he obtains a bed. Patient deniesfevers, chills, nausea, emesis, abdominal pain, chest pain or dyspnea. Objective Data Objective Data Vital Signs: Vital Signs Temp Pulse Resp BP Pulse Ox O2 Del Method O2 Flow Rate 99.2 F H 66 18 135/50 H 93 Nasal Cannula 2 11/02/22 03:58 11/02/22 03:58 11/02/22 03:58 11/02/22 03:58 11/02/22 03:58 11/02/22 04:00 11/02/22 04:00 Oxygen Flow Rate (L/min) 2 Oxygen Delivery Method Nasal Cannula Weight: 183 lb 3.266 oz Body Mass Index (BMI) 24.8 Intake & Output: Intake and Output for Last 24 Hours 10/31/22 11/01/22 11/02/22 23:59 23:59 23:59 Intake Total 850 / 1000 1640 / 1640 Output Total 1200 / 1500 1800 / 1800 Balance -350 / -500 -160 / -160 Lab / Micro Data 11/02/22 05:02 11/02/22 05:02 Labs: Laboratory Results - last 24 hr 11/01/22 05:05: ESR 68 H, Sodium 139, Potassium 3.8, Chloride 107, Carbon Dioxide 27.0, Anion Gap 5, BUN 46 H, Creatinine 2.02 H, Estim Creat Clear Calc 30.41, Est GFR (MDRD) Af Amer 41 L, Est GFR (MDRD) Non-Af 34 L, BUN/Creatinine Ratio 22.8 H, Glucose 164 H, Calcium 8.2 L, C-React Prot Ext Range 97.10 H, Procalcitonin 0.14 H 11/01/22 08:31: POC Glucose 171 H 11/01/22 11:32: POC Glucose 236 H 11/01/22 16:56: POC Glucose 219 H 11/02/22 05:02: WBC 12.1 H, RBC 3.12 L, Hgb 9.5 L, Hct 28.6 L, MCV 91.7, MCH 30.4, MCHC 33.2, RDW Std Deviation 48.6 H, RDW Coeff of Cait 14.6, Plt Count 267,MPV 10.7, Immature Gran % (Auto) 1.100 H, Neut % (Auto) 70.8 H, Lymph % (Auto) 11.4 L, [place] % (Auto) 12.0 H, Eos % (Auto) 4.0, Baso % (Auto) 0.7, Absolute Neuts(auto) 8.6 H, Absolute Lymphs (auto) 1.38, Nucleated RBC % 0, Sodium 137, Potassium 4.7, Chloride 106, Carbon Dioxide 25.0, Anion Gap 6, BUN 48 H, Creatinine 2.07 H, Estim Creat Clear Calc 29.68, Est GFR (MDRD) Af Amer 40 L, Est GFR (MDRD) Non-Af 33 L, BUN/Creatinine Ratio 23.2 H, Glucose 203 H, Calcium 8.6, Total Bilirubin 0.20, AST 17, ALT 26, Alkaline Phosphatase 67, Total Protein 6.5, Albumin 2.5 L, Globulin 4.0, Albumin/Globulin Ratio 0.6 L Micro: Microbiology 11/01/22 12:45 Mucosa - Nose Coronavirus COVID-19 PCR - Final 11/01/22 12:45 Mucosa - Nose Respiratory Panel (PCR) - Final 10/28/22 18:50 Blood Culture (Wb) - Right Hand Blood Culture - Preliminary No growth in 48 hours. 10/28/22 18:40 Blood Culture (Wb) - Anticubital Right Blood Culture - Preliminary No growth in 48 hours. 10/28/22 19:34 Urine, Clean Catch Urine Culture - Final Culture exhibits no growth. 10/28/22 18:50 Nasal Secretion SARS-CoV-2 & FLU Antigen (Rapid) - Final Physical Exam Narrative Physical Examination: General: Awake, alert, oriented x 3 and cooperative, seated upright in PCU bedside chair, for discharge. Skin: Normal color, normal turgor, no icterus, no cyanosis except for occasionalstaged ecchymoses likely related with lab draws. HEENT: AT/NC, EOMI, PERRLA, MMM. Lungs: Mild diminished, greater bases, left greater than right, appropriate effort, no rales, ronchi or wheezing. Heart: Bradycardic with regular rhythm; no gallop, rub audible. Abdomen: Soft, NTTP, ND, normal BS. Extremities: No cyanosis, clubbing, or edema. Neurological: Patient awake, alert, oriented as noted, cognitive function intact; pupils equally reactive to light and accommodation, cranial nerves II-XII grossly normal, moving all 4 extremities, no focal deficits, strength improved, mildly to moderately global decrease. Psychiatric: Affect appears normal, no acute evidence of depressive or anxiety feelings. 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 ED on 10/28/22 with history of increased weakness and fatigue unable to even get up from his bed incidentally noted to have been started on finasteride the day prior for BPH with reported chills but no fevers however he was noted to be low- grade upon ED presentation as well as mild hypoxia prompting further evaluation. #1. Adult FTT, Fatigue, Malaise, FUO possibly secondary to Viral etiology: Initial ED evaluation with CBC with WBC 14.4 with left shift, urine culture withno growth, rapid SARS COVID influenza antigen negative, blood culture x2 with nogrowth, will obtain full respiratory viral panel as well as COVID PCR to be cautious, CRP and ESR obtained with ESR 68 and CRP 97.10, procalcitonin also obtained and noted to be 0.14, but again blood culture and urine cultures are negative at this time, pending infectious disease evaluation to be cautious. 11/01/22 after dose for day d/c IV Rocephin given negative cultures and since d/césar grade T and mild WBC elevation 11/02/22 CBC w/ WBC 12.1 with L shift. Requested repeat 11/02/22 CRP/ESR requested w/ CRP 98.40/ESR 76. To be cautious discussed case and patient was evaluated by infectious disease who remained amenable to patient transitioning off antibiotic therapy and once skilled bed available to transition to their facility with planned outpatient follow-up labsand continued close monitoring. PT/OT/case management consulted and following, currently awaiting precertification for skilled facility transition. #2. Chronic normocytic anemia: Admission hemoglobin 10.9, baseline has been 8-9, trending now more that normal range, 11/02/2022 hemoglobin 9.5, stable. #3. Hypertension: Continue home regimen including Norvasc, clonidine, Cardura, Lasix, losartan, PRN hydralazine. #4. Hyperlipidemia: We will continue patient home Zetia regimen, not on statin,defer to outpatient, #5. Diabetes mellitus type II with chronic neuropathy: Hold oral home regimen, continue home insulin regimen, ADA diet, accu checks w/ ISS, continue patient home chronic gabapentin regimen. #6. History CVA: Patient with history of stroke with chronic left-sided hemiplegia/facial droop, continue patient home aspirin, Plavix, Zetia as patienthas myalgias with statin therapy per allergy listed, hypertensive regimen is noticeable diabetic regimen with alterations as noted. #7. CKD stage IV: Admission BUN/creatinine 33/1.70, baseline creatinine noted primarily 1.6-2.2, 11/01/2022 BUN/creatinine 46/2.02-->11/02/22 BUN/Cr 48/2.07, continue to trend but if continues to rise will hold nephrotoxic regimen. #8. Chronic recurrent left-sided pleural effusion: Continue patient home Lasix oral regimen, encourage out of bed and I-S. Disease evaluated patient 11/02/2022nd at this point they have no concerns that this could be associated with his low-grade temperature presentation or inflammatory marker elevation. All cultures have remained negative. #9. History of renal artery stenosis: Status post PCI, continue aspirin, Plavix, Zetia as statin intolerance noted, hypertensive regimen as well as diabetic regimen as noted. #10. Restless leg syndrome: We will continue patient home Mirapex regimen. #11. BPH: We will continue patient home Flomax regimen. Had recently been initiated on finasteride but this was until his Flomax was reinitiated as he hadbeen out. #12. JOHN: BIPAP q HS. #13. DVT prophylaxis: Had been on lovenox but this was d/c secondary to Hgb concerns prior. #14. CODE status: Full Code. Charges/Coding Visit Charges Inpatient E&M: 16655 Subs Hosp L2 11/02/22 1533 <Electronically signed by Johana Archuleta MD> Cosigner Signature (if applicable): CC: ~ Signed [facility] Work Phone: 1(384) 412-237008-22-2023 Consult note Author [facility] November 02, 2022 10:28am Note Date/Time November 02, 2022 10 :28am [facility] Medical Records Department [address] [place] [id number] Consultation - Infectious Dx 11/02/22 1024 MR#: [id number] Acct: [id number] Name: FRANCISCO THOMAS Rep #:[id number] : 1940 82 From: Jonathan pardo MD PCP: Dr. Jennifer Watt MD Status:ADM IN Location: [place] [address] Assessment & Plan Assessment/Plan (1) Fever: QUALIFIERS: Fever type: unspecified Qualified Code(s): R50.9 - Fever, unspecified PLAN: Resolved. Cxs and viral testing neg. Ceftriaxone stopped yesterday, feeling fine. Agree with monitoring off of abx. Will follow as needed, thank you HPI Consult Data Date of Consult: 11/02/22 HPI Narrative Reason for Consultation: fever HPI Narrative: FRANCISCO THOMAS, is a 82 M with h/o DM, htn, stroke, presented 10/28 with generalized weakness, L more than R. Denies any fever, chills, cough, SOB, congestion, n/v/d, abd pain, dysuria, rash, or aches. Admitted here, did have one time [id number] and some other low grade temps. Started on empiric ceftriaxone, workup neg, no further fever, feeling back to normal, abx stopped yesterday. Full ROS performed and neg except as noted above. 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 mellitus Recurrent inguinal hernia of right side without obstruction or gangrene Restless legs Right pontine CVA Right renal artery stenosis Skin lesion of face SOB (shortness of breath) Type 2 diabetes mellitus Unsteadiness Ventricular tachycardia seen on handtools repairer (02/20/21) Home Medications multivitamin,ym-vsql-mxupsipm (Complete Multivitamin tablet) 1 tab PO QDAY supplement 03/03/17 [History Last Taken 02/23/22] aspirin 81 mg chewable tablet 81 mg PO BREAKFAST heart health 01/02/21 [History Last Taken 02/24/22] Handicap Placard #1 ea 02/12/21 [Rx Last Taken Unknown] doxazosin 8 mg tablet 8 mg PO QHS bph 02/24/22 [History Last Taken 02/23/22] ezetimibe 10 mg tablet (Zetia) 10 mg PO QHS cholesterol 02/24/22 [History Last Taken 02/23/22] latanoprost 0.005 % eye drops 1 drp EACH EYE HS eyes 02/24/22 [History Last Taken 02/23/22] pramipexole 0.125 mg tablet 0.125 mg PO QHS parkinsons 02/24/22 [History Last Taken 02/23/22] sertraline 50 mg tablet 50 mg PO QHS mood 02/24/22 [History Last Taken 02/24/22] insulin lispro 100 unit/mL subcutaneous pen (Humalog KwikPen (U-100) Insulin) 6 unit subcut TIDAC PRN diabetes 03/17/22 [History Last Taken Unknown] gabapentin 100 mg capsule 100 mg PO BID pain #180 caps 03/18/22 [Rx Last Taken Unknown] gabapentin 300 mg capsule 300 mg PO 2100 pain #90 caps 03/18/22 [Rx Last Taken Unknown] losartan 25 mg tablet 25 mg PO DAILY BP 04/12/22 [History Last Taken Unknown] clopidogrel 75 mg tablet (Plavix) 75 mg PO DAILY blood thinner #90 tabs 06/07/22[Rx Last Taken Unknown] pen needle, diabetic 32 gauge x /32 (BD Sanaz 2nd Gen Pen Needle) #50 ea 06/17/22 [Rx Last Taken Unknown] clonidine HCl 0.1 mg tablet 0.1 mg PO BID #60 tabs 07/09/22 [Rx Last Taken Unknown] furosemide 40 mg tablet (Lasix) 40 mg PO DAILY #60 tabs 08/03/22 [Rx Last Taken Unknown] hydralazine 25 mg tablet 75 mg (3 x 25 mg) PO TID BP #270 tabs 08/05/22 [Rx Last Taken Unknown] insulin glargine 100 unit/mL (3 mL) subcutaneous pen (Basaglar KwikPen U-100 Insulin) 18 unit (0.18 mL) subcut DAILY #15 mL 08/10/22 [Rx Last Taken Unknown] carvedilol 6.25 mg tablet 6.25 mg PO BID #60 tabs 08/12/22 [Rx Last Taken Unknown] triamcinolone acetonide 0.1 % topical cream 1 applic topical BID 10 days #30 grams 10/12/22 [Rx Last Taken Unknown] amlodipine 10 mg tablet 10 mg PO DAILY BP #90 tabs 10/15/22 [Rx Last Taken Unknown] oxygen #1 ea 10/26/22 [Rx Last Taken Unknown] Allergy/AdvReac Type Severity Reaction Status Date / Time meloxicam [From Mobic] Allergy Intermediate itching Verified 10/28/22 17:41 pravastatin [From Pravachol] AdvReac Mild myalgia Verified 10/28/22 17:41 cholestyramine AdvReac hypoglycemi Verified 10/28/22 17:41 a Family History Mother Hypertension Cancer Father Heart disease Diabetes Surgical History History of cataract surgery History of herniorrhaphy History of lumbar laminectomy History of stent insertion of renal artery (08/05/21) Status post laser cataract surgery of left eye Social History household members: spouse and other details: Abigail is his 's name housing: house number of children: 2 current occupational status: retired and other details: worked for [employer] prior to retiring leisure activities: other Smoking Status: Never smoker Electronic Cigarette Use: not used second hand exposure: No alcohol intake: former substance use type: does not use what type of physical activity do you participate in: walking frequency: 1-2 times per week inés/judaism: None seatbelt use: always Physical Exam Const alert, oriented x3 and no apparent distress General Appearance: cooperative HEENT normocephalic and head/scalp atraumatic Eyes PERRL and EOMs intact bilaterally Neck supple and No nodes Resp normal air movement and clear to auscultation bilaterally Cardio regular rate and regular rhythm GI soft to palpation, non-tender and non-distended Extremity General Extremity: Negative for edema Skin no rashes or lesions noted Neuro CN's II-XII intact bilaterally Lab / Micro Data Attestation: I reviewed the patient's lab results. 11/02/22 05:02 11/02/22 05:02 Labs: Laboratory Results - last 24 hr 11/01/22 05:05: ESR 68 H, C-React Prot Ext Range 97.10 H 11/01/22 11:32: POC Glucose 236 H 11/01/22 16:56: POC Glucose 219 H 11/02/22 05:02: WBC 12.1 H, RBC 3.12 L, Hgb 9.5 L, Hct 28.6 L, MCV 91.7, MCH 30.4, MCHC 33.2, RDW Std Deviation 48.6 H, RDW Coeff of Cait 14.6, Plt Count 267,MPV 10.7, Immature Gran % (Auto) 1.100 H, Neut % (Auto) 70.8 H, Lymph % (Auto) 11.4 L, [place] % (Auto) 12.0 H, Eos % (Auto) 4.0, Baso % (Auto) 0.7, Absolute Neuts (auto) 8.6 H, Absolute Lymphs (auto) 1.38, Nucleated RBC % 0, ESR 76 H, [id number], Potassium 4.7, Chloride 106, Carbon Dioxide 25.0, Anion Gap 6, BUN 48 H, Creatinine 2.07 H, Estim Creat Clear Calc 29.68, Est GFR (MDRD) Af Amer 40 L, Est GFR (MDRD) Non-Af 33 L, BUN/Creatinine Ratio 23.2 H, Glucose 203 H, Calcium 8.6, Total Bilirubin 0.20, AST 17, ALT 26, Alkaline Phosphatase 67, C-React ProtExt Range 98.40 H, Total Protein 6.5, Albumin 2.5 L, Globulin 4.0, Albumin/Globulin Ratio 0.6 L 11/02/22 08:35: POC Glucose 219 H Micro: Microbiology 11/01/22 12:45 Mucosa - Nose Coronavirus COVID-19 PCR - Final 11/01/22 12:45 Mucosa - Nose Respiratory Panel (PCR) - Final 11/02/22 1028 <Electronically signed by Jonathan Bowling MD> Cosigner Signature (if applicable): CC: Dr. Tato Avendaño MD; Dr. Jennifer Watt MD; Dr. Adiel Umanzor MD; Dr.Robert Tawnya MD~ Signed [facility] Work Phone: 1(283) 208-743008-21-2023 Progress note Author Johana Archuleta [facility] November 01, 2022 2:28pm Note Date/Time November 01, 2022 6: 53am [facility] Medical Records Department [address] [place] [id number] Progress Note - Hospitalist 11/01/22 0653 MR#: [id number] Acct: [id number] Name: FRANCISCO THOMAS Rep #:[id number] : 1940 82 From: Johana Archuleta MD PCP: Dr. Jennifer Watt MD Status:ADM IN Location: [place] [address] Reason for Visit Reason for Visit: Diagnoses Retention of urine, unspecified (10/29/22) Fever, unspecified (10/29/22) Weakness (10/29/22) Subjective Subjective Patient with no acute events overnight per self and per nursing report. Patientnotes feeling improved since initial ED evaluation. He is frustrated that thereis no specific etiology for his initial presentation and low-grade temperatures as well as general malaise and fatigue. Discussed plan of care which included de-escalation off antibiotic therapy given cultures are negative but given inflammatory markers elevated and unclear specific etiology for his presentationinfectious disease involvement requested. Patient denies fevers, chills, nausea, emesis, abdominal pain, chest pain or dyspnea. Objective Data Objective Data Physical Examination: General: Awake, alert, oriented x 3 and cooperative, seated upright in PCU bedside chair, mildly fatigued otherwise no acute distress. Skin: Normal color, normal turgor, no icterus, no cyanosis. HEENT: AT/NC, EOMI, PERRLA, MMM. Lungs: Mild diminished, greater bases, left greater than right, appropriate effort, no rales, ronchi or wheezing. Heart: Bradycardic with regular rhythm; no gallop, rub audible. Abdomen: Soft, NTTP, ND, normal BS. Extremities: No cyanosis, clubbing, or edema. Neurological: Patient awake, alert, oriented as noted, cognitive function intact; pupils equally reactive to light and accommodation, cranial nerves II-XII grossly normal, moving all 4 extremities, no focal deficits, strength improved, mildly to moderately global decrease. Psychiatric: Affect appears normal, no acute evidence of depressive or anxiety feelings. Vital Signs: Vital Signs Temp Pulse Resp BP Pulse Ox O2 Del Method O2 Flow Rate 98.0 F 59 L 16 122/50 H 93 Nasal Cannula 2 11/01/22 05:17 11/01/22 05:18 11/01/22 05:17 11/01/22 05:18 11/01/22 05:17 11/01/22 05:17 11/01/22 05:17 Oxygen Flow Rate (L/min) 2 Oxygen Delivery Method Nasal Cannula Weight: 183 lb 3.266 oz Body Mass Index (BMI) 24.8 Intake & Output: Intake and Output for Last 24 Hours 10/30/22 10/31/22 11/01/22 23:59 23:59 23:59 Intake Total 670 / 770 850 / 1000 400 / 400 Output Total 1750 / 1950 1200 / 1500 500 / 500 Balance -1080 / -1180 -350 / -500 -100 / -100 Lab / Micro Data 11/01/22 05:05 11/01/22 05:05 Labs: Laboratory Results - last 24 hr 10/31/22 08:11: POC Glucose 163 H 10/31/22 11:51: POC Glucose 220 H 10/31/22 15:11: POC Glucose 309 H 10/31/22 21:20: POC Glucose 243 H 11/01/22 05:05: WBC 9.7, RBC 3.03 L, Hgb 9.3 L, Hct 27.9 L, MCV 92.1, MCH 30.7, MCHC 33.3, RDW Std Deviation 50.0 H, RDW Coeff of Cait 14.7 H, Plt Count 228, MPV10.9, Immature Gran % (Auto) 0.800, Neut % (Auto) 58.7, Lymph % (Auto) 17.5 L, [place] % (Auto) 14.1 H, Eos % (Auto) 8.2 H, Baso % (Auto) 0.7, Absolute Neuts (auto) 5.7, Absolute Lymphs (auto) 1.70, Nucleated RBC % 0, Sodium 139, Potassium 3.8, Chloride 107, Carbon Dioxide 27.0, Anion Gap 5, BUN 46 H, Creatinine 2.02 H, Estim Creat Clear Calc 30.41, Est GFR (MDRD) Af Amer 41 L, Est GFR (MDRD) Non-Af 34 L, BUN/Creatinine Ratio 22.8 H, Glucose 164 H, Calcium 8.2 L Micro: Microbiology 10/28/22 18:50 Blood Culture (Wb) - Right Hand Blood Culture - Preliminary No growth in 48 hours. 10/28/22 18:40 Blood Culture (Wb) - Anticubital Right Blood Culture - Preliminary No growth in 48 hours. 10/28/22 19:34 Urine, Clean Catch Urine Culture - Final Culture exhibits no growth. 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 ED on 10/28/22 with history of increased weakness and fatigue unable to even get up from his bed incidentally noted to have been started on finasteride the day prior for BPH with reported chills but no fevers however he was noted to be low- grade upon ED presentation as well as mild hypoxia prompting further evaluation. #1. Adult FTT, Fatigue, Malaise, FUO possibly secondary to Viral etiology: Initial ED evaluation with CBC with WBC 14.4 with left shift, urine culture withno growth, rapid SARS COVID influenza antigen negative, blood culture x2 with nogrowth, will obtain full respiratory viral panel as well as COVID PCR to be cautious, CRP and ESR obtained with ESR 68 and CRP 97.10, procalcitonin also obtained and noted to be 0.14, but again blood culture and urine cultures are negative at this time, will request infectious disease evaluation to be cautioushowever will de-escalate off empiric Rocephin is unclear as to what we are treating. PT/OT/case management consulted and following, currently awaiting precertification for skilled facility transition. #2. Chronic normocytic anemia: Admission hemoglobin 10.9, baseline has been 8-9, trending now more that normal range, 11/01/2022 hemoglobin 9.3, guaiac orderedper prior physician and is pending as patient is on dual antiplatelet therapy but no obvious GI bleed #3. Hypertension: Continue home regimen including Norvasc, clonidine, Cardura, Lasix, losartan, PRN hydralazine. #4. Hyperlipidemia: We will continue patient home Zetia regimen, not on statin,defer to outpatient, #5. Diabetes mellitus type II with chronic neuropathy: Hold oral home regimen, continue home insulin regimen, ADA diet, accu checks w/ ISS, continue patient home chronic gabapentin regimen. #6. History CVA: Patient with history of stroke with chronic left-sided hemiplegia/facial droop, continue patient home aspirin, Plavix, Zetia as patienthas myalgias with statin therapy per allergy listed, hypertensive regimen is noticeable diabetic regimen with alterations as noted. #7. CKD stage IV: Admission BUN/creatinine 33/1.70, baseline creatinine noted primarily 1.6-2.2, 11/01/2022 BUN/creatinine 46/2.02, continue to trend #8. Chronic recurrent left-sided pleural effusion: Continue patient home Lasix oral regimen, encourage out of bed and I-S. As noted #1 with no obvious source and patient does only have a small left pleural effusion but awaiting infectiousdisease input given increased inflammatory markers despite negative cultures. May require further imaging to evaluate if this could be the source of his fever #9. History of renal artery stenosis: Status post PCI, continue aspirin, Plavix, Zetia as statin intolerance noted, hypertensive regimen as well as diabetic regimen as noted. #10. Restless leg syndrome: We will continue patient home Mirapex regimen. #11. BPH: We will continue patient home Flomax regimen. Had recently been initiated on finasteride but this was until his Flomax was reinitiated as he hadbeen out. #12. JOHN: BIPAP q HS. #13. DVT prophylaxis: Had been on lovenox but this was d/c secondary to Hgb concerns prior. #14. CODE status: Full Code. Charges/Coding Visit Charges Inpatient E&M: 00898 Subs Hosp L2 11/01/22 1428 <Electronically signed by Johana Archuleta MD> Cosigner Signature (if applicable): CC: ~ Signed [facility] Work Phone: 1(226) 327-804808-20-2023 Progress note Author Adiel Umanzor [facility] October 31, 2022 10:47am Note Date/Time October 31, 2022 10 :47am [facility] Medical Records Department [address] [place] [id number] Progress Note - Hospitalist 10/31/22 1036 MR#: [id number] Acct: [id number] Name: FRANCISCO TOHMAS Rep #:[id number] : 1940 82 From: Adiel Lee PCP: Dr. Jennifer Watt MD Status:ADM IN Location: [place] [address] Reason for Visit Reason for Visit: Diagnoses Retention of urine, unspecified (10/29/22) Fever, unspecified (10/29/22) Weakness (10/29/22) Objective Data Objective Data Vital Signs: Vital Signs Temp Pulse Resp BP Pulse Ox O2 Del Method O2 Flow Rate 98.9 F 62 14 120/60 98 Nasal Cannula 2 10/31/22 10:08 10/31/22 10:08 10/31/22 10:08 10/31/22 10:08 10/31/22 10:08 10/31/22 10:08 10/31/22 10:08 Oxygen Flow Rate (L/min) 2 Oxygen Delivery Method Nasal Cannula Weight: 183 lb 3.266 oz Body Mass Index (BMI) 24.8 Intake & Output: Intake and Output for Last 24 Hours 10/29/22 10/30/22 10/31/22 23:59 23:59 23:59 Intake Total 1000 / 1120 670 / 770 250 / 250 Output Total 600 / 1400 1750 / 1950 700 / 700 Balance 400 / -280 -1080 / -1180 -450 / -450 Lab / Micro Data 10/31/22 03:50 10/31/22 03:50 Labs: Laboratory Results - last 24 hr 10/30/22 11:15: WBC 14.0 H, RBC 3.14 L, Hgb 9.4 L, Hct 29.0 L, MCV 92.4, MCH 29.9, MCHC 32.4, RDW Std Deviation 50.0 H, RDW Coeff of Cait 14.8 H, Plt Count 199, MPV 10.6, Immature Gran % (Auto) 0.800, Neut % (Auto) 83.2 H, Lymph % (Auto) 5.2 L, [place] % (Auto) 9.2, Eos % (Auto) 1.1, Baso % (Auto) 0.5, Absolute Neuts (auto) 11.6 H, Absolute Lymphs (auto) 0.72 L, Nucleated RBC % 0, Sodium 140, Potassium 3.3 L, Chloride 105, Carbon Dioxide 28.0, Anion Gap 7, BUN 39 H, Creatinine 2.26 H, Estim Creat Clear Calc 27.18, Est GFR (MDRD) Af Amer 36 L, Est GFR (MDRD) Non-Af 30 L, BUN/Creatinine Ratio 17.3, Glucose 273 H, Calcium 8.5, Total Bilirubin 0.40, AST 7 L, ALT 10 L, Alkaline Phosphatase 57, Total Protein 6.2 L, Albumin 2.5 L, Globulin 3.7, Albumin/Globulin Ratio 0.7 L 10/30/22 11:37: POC Glucose 259 H 10/30/22 15:05: POC Glucose 162 H 10/30/22 20:58: POC Glucose 208 H 10/31/22 03:50: WBC 12.1 H, RBC 2.77 L, Hgb 8.4 L, Hct 25.8 L, MCV 93.1, MCH 30.3, MCHC 32.6, RDW Std Deviation 49.7 H, RDW Coeff of Cait 14.8 H, Plt Count 214, MPV 11.0, Immature Gran % (Auto) 1.100 H, Neut % (Auto) 76.7 H, Lymph % (Auto) 7.1 L, [place] % (Auto) 11.9 H, Eos % (Auto) 2.6, Baso % (Auto) 0.6, Absolute Neuts(auto) 9.3 H, Absolute Lymphs (auto) 0.86, Nucleated RBC % 0, Sodium 142, Potassium 3.8, Chloride 106, Carbon Dioxide 27.0, Anion Gap 9, BUN 47 H, Creatinine 2.30 H, Estim Creat Clear Calc 26.71, Est GFR (MDRD) Af Amer 35 L, Est GFR (MDRD) Non-Af 29 L, BUN/Creatinine Ratio 20.4 H, Glucose 185 H, Calcium 8.4 L 10/31/22 08:11: POC Glucose 163 H Micro: Microbiology 10/28/22 19:34 Urine, Clean Catch Urine Culture - Final Culture exhibits no growth. 10/28/22 18:50 Nasal Secretion SARS-CoV-2 & FLU Antigen (Rapid) - Final Physical Exam Narrative Seen and examined. On 10/31, at 3 AM low-grade fever 99.8 Fahrenheit. Patient treated stroke with left-sided hemiparesis and facial weakness, dysphagia/dysarthria in December 2020. Patient states he moved bowel yesterday. He felt initially that was stuck in the back but later on he was able to move it. He was very thankful. He slept well. No acute issues overnight. Physical exam General: Alert, Oriented x3, Cooperative HEENT: Atraumatic, PERRLA, EOMI, Normocephalic Oral: Oral mucosa moist. No Gingival or Mucosal Lesions/ Ulcerations/inflammatory lesion or exudate Neck: Supple, No JVD, Negative Carotid Bruits Lungs: Air entry diminished in bilateral lung bases. No crepitation/rhonchi Cardiovascular: Regular rate, Regular Rhythm, Normal S1, Normal S2, No murmurs Abdomen: Bowel Sounds Present, Soft, Non Tender, Non-Distended : No dysuria or new lower urinary tract symptoms. No renal angle tenderness. No suprapubic tenderness. Extremities: No edema, Capillary Refill Less than 3 Seconds Skin: No rashes, No breakdown Musculoskeletal: No Tenderness to Palpation of Joints or Extremities Neurological: Left-sided facial weakness with left hemiparesis. Left upper extremity strength 1/5 with contracture at wrist, elbow and shoulder joints. Left lower extremity is improved about 3+/5. Mild dysarthria. Psych/Mental Status: Flat affect Assessment & Plan Assessment/Plan (1) Weakness: (2) Fever: QUALIFIERS: Fever type: unspecified Qualified Code(s): R50.9 - Fever, unspecified (3) Urinary retention: PLAN: Plan Generalized weakness and failure to thrive beyond left-sided weakness since facial paralysis from December 2020 stroke PT and OT to work with patient. Case management consult. Fever and leukocytosis, etiology unclearquotidian pattern: Patient was admitted lysed weakness and fatigue. Possibility of viral fever.Liver chemistrynot elevated. ESR and CRP ordered. Mild leukocytosis. Labs ordered. Empirically IV ceftriaxone added. Patient denies focal symptoms of URI including cough, sore throat, postnasal drip or allergic symptoms. Patient denies abdominal pain, chest pain or shortness of breath. No alteration of bowel habit. No new symptoms including dysuria and genitourinary symptoms. Patient denies any contact with sick person. Etiology unclear. Urinalysis unremarkable. Chest x-ray initially reviewed and does not show acute infiltrate but small leftpleural effusion. Blood cultures x2 and urine culture has been sent from ED. Reports pain 10/31 urine culture shows no growth. Blood cultures x2 also pending since 10/28. If cultures are negative antibiotic can be discontinued. Urinary urgency/BPH continue finasteride as patient weakness may not be secondary to finasteride. His fever and leukocytosis may be accounting for his weakness. Flomax ordered. Hypoxia/obstructive sleep apnea BiPAP continued Recurrent left pleural effusion, hypertension, peripheral vascular disease, dyslipidemia and polyneuropathy and right-sided stroke in December 2020: Patient on amlodipine, baby aspirin, Plavix, ezetimibe, gabapentin, carvedilol, Lasix and losartan. Mild hypokalemia potassium added. Diabetes mellitus type 2: Patient is on insulin. Glucoses controlled CKD stage IV: Patient admitted with BUNs/creatinine at his baseline is around 2.0-2.3. His creatinine increased from 1.7-2.26. Hold Lasix and lisinopril. Monitor kidney function. Acute on chronic anemia: Patient baseline hemoglobin is 10.5. It dropped from 10.5-8.4. We will hold Lovenox. Patient on baby aspirin and Plavix. For now continue baby aspirin and Plavix. Hypertension: Blood pressure is in normal range. His blood pressure ranged [id number] 145 mmHg. Patient on amlodipine and clonidine with holding parameters. DVT prophylaxis: Because of severe anemia, Lovenox discontinued. Continue BB and aspirin and monitor CBC daily. Charges/Coding Visit Charges Inpatient E&M: 69675 Subs Hosp L2 10/31/22 1047 <Electronically signed by Adiel Umanzor MD> Cosigner Signature (if applicable): CC: ~ Signed [facility] Work Phone: [phone]) 932-193408-19-2023 Progress note Author Adiel Umanzor [facility] October 30, 2022 10:38am Note Date/Time October 30, 2022 10 :38am [facility] Medical Records Department [address] [place] [id number] Progress Note - Hospitalist 10/30/22 1028 MR#: [id number] Acct: [id number] Name: FRANCISCO THOMAS Rep #:[id number] : 1940 82 From: Adiel Lee PCP: Dr. Jennifer Watt MD Status:ADM IN Location: [place] [phone] [id number] Reason for Visit Reason for Visit: Diagnoses Retention of urine, unspecified (10/29/22) Fever, unspecified (10/29/22) Weakness (10/29/22) Objective Data Objective Data Vital Signs: Vital Signs Temp Pulse Resp BP Pulse Ox O2 Del Method O2 Flow Rate 98.9 F 64 14 131/53 H 93 Nasal Cannula 2 10/30/22 08:08 10/30/22 08:08 10/30/22 08:08 10/30/22 08:08 10/30/22 08:08 10/30/22 08:08 10/30/22 10:11 Oxygen Flow Rate (L/min) 2 Oxygen Delivery Method Nasal Cannula Weight: 183 lb 3.266 oz Body Mass Index (BMI) 24.8 Intake & Output: Intake and Output for Last 24 Hours 10/28/22 10/29/22 10/30/22 23:59 23:59 23:59 Intake Total 1000 / 1120 220 / 220 Output Total 150 / 150 600 / 1400 1200 / 1200 Balance -150 / -150 400 / -280 -980 / -980 Lab / Micro Data 10/29/22 05:55 10/29/22 05:55 Labs: Laboratory Results - last 24 hr 10/28/22 18:40: Diff Path Review Reviewed 10/29/22 05:55: Diff Path Review Reviewed 10/30/22 08:04: POC Glucose 149 H Micro: Microbiology 10/28/22 18:50 Nasal Secretion SARS-CoV-2 & FLU Antigen (Rapid) - Final Physical Exam Narrative Seen and examined. Patient has low-grade fever Tmax 100.8 Fahrenheit last night about 9 PM. Patient usually spikes fever late evening and night in Quotidian pattern. Denies focal symptoms of infection. Patient does not look septic/toxic. Patient treated stroke with left-sided hemiparesis and facial weakness, dysphagia/dysarthria in December 2020. Physical exam General: Alert, Oriented x3, Cooperative HEENT: Atraumatic, PERRLA, EOMI, Normocephalic Oral: Oral mucosa dry. No Gingival or Mucosal Lesions/ Ulcerations/inflammatorylesion or exudate Neck: Supple, No JVD, Negative Carotid Bruits Lungs: Air entry diminished in bilateral lung bases. No crepitation/rhonchi Cardiovascular: Regular rate, Regular Rhythm, Normal S1, Normal S2, No murmurs Abdomen: Bowel Sounds Present, Soft, Non Tender, Non-Distended : No dysuria or new lower urinary tract symptoms. No renal angle tenderness. No suprapubic tenderness. Extremities: No edema, Capillary Refill Less than 3 Seconds Skin: No rashes, No breakdown Musculoskeletal: No Tenderness to Palpation of Joints or Extremities Neurological: Left-sided facial weakness with left hemiparesis. Left upper extremity strength 1/5. Left lower extremity is improved about 3+/5. Psych/Mental Status: Flat affect Assessment & Plan Assessment/Plan (1) Weakness: (2) Fever: QUALIFIERS: Fever type: unspecified Qualified Code(s): R50.9 - Fever, unspecified (3) Urinary retention: PLAN: Plan Generalized weakness and failure to thrive beyond left-sided weakness since facial paralysis from December 2020 stroke PT and OT to work with patient. Case management consult. Fever and leukocytosis, etiology unclearquotidian pattern: Patient was admitted lysed weakness and fatigue. Possibility of viral fever.Liver chemistrynot elevated. ESR and CRP ordered. Mild leukocytosis. Labs ordered. Empirically IV ceftriaxone added. Patient denies focal symptoms of URI including cough, sore throat, postnasal drip or allergic symptoms. Patient denies abdominal pain, chest pain or shortness of breath. No alteration of bowel habit. No new symptoms including dysuria and genitourinary symptoms. Patient denies any contact with sick person. Etiology unclear. Urinalysis unremarkable. Chest x-ray initially reviewed and does not show acute infiltrate but small leftpleural effusion. Blood cultures x2 and urine culture has been sent from ED. Reports pain Urinary urgency/BPH continue finasteride as patient weakness may not be secondary to finasteride. His fever and leukocytosis may be accounting for his weakness. Flomax ordered. Hypoxia/obstructive sleep apnea BiPAP continued Recurrent left pleural effusion, hypertension, peripheral vascular disease, dyslipidemia and polyneuropathy and right-sided stroke in December 2020: Patient on amlodipine, baby aspirin, Plavix, ezetimibe, gabapentin, carvedilol, Lasix and losartan. Mild hypokalemia potassium added. Diabetes mellitus type 2: Patient is on insulin. Glucoses controlled DVT prophylaxis subcutaneous Lovenox ordered. Active Medications Acetaminophen (Acetaminophen 325 Mg Tablet) 650 mg PO Q6H PRN PRN PRN Reason: fever of 100.7 F, pain 1-10 Last Admin: 10/29/22 20:59 Dose: 650 mg Amlodipine Besylate (Amlodipine 10 Mg Tablet) 10 mg PO DAILY [facility] Last Admin: 10/29/22 11:03 Dose: 10 mg Aspirin (Aspirin 81 Mg Tab.Chew) 81 mg PO BREAKFAST [facility] Last Admin: 10/30/22 08:20 Dose: 81 mg Carvedilol (Carvedilol 6.25 Mg Tablet) 6.25 mg PO BIDCM [facility] Last Admin: 10/30/22 08:21 Dose: 6.25 mg Clonidine (Clonidine Hcl 0.1 Mg Tablet) 0.1 mg PO BID [facility] Last Admin: 10/29/22 22:29 Dose: 0.1 mg Clopidogrel Bisulfate (Clopidogrel Bisulfate 75 Mg Tablet) 75 mg PO DAILY [facility] Last Admin: 10/29/22 11:03 Dose: 75 mg Doxazosin Mesylate (Doxazosin 4 Mg Tablet) 8 mg PO QHS [facility] Last Admin: 10/29/22 22:30 Dose: 8 mg Ezetimibe (Ezetimibe 10 Mg Tablet) 10 mg PO QHS [facility] Last Admin: 10/29/22 22:31 Dose: 10 mg Enoxaparin Sodium (Enoxaparin 40 Mg/0.4 Ml Syringe) 40 mg SC DAILY [facility] Last Admin: 10/29/22 11:03 Dose: 40 mg Furosemide (Furosemide 40 Mg Tablet) 40 mg PO DAILY [facility] Last Admin: 10/29/22 11:02 Dose: 40 mg Gabapentin (Gabapentin 300 Mg Capsule) 300 mg PO 2100 [facility] Last Admin: 10/29/22 22:24 Dose: 300 mg Gabapentin (Gabapentin 100 Mg Capsule) 100 mg PO BIDCM [facility] Last Admin: 10/30/22 08:23 Dose: 100 mg Hydralazine HCl (Hydralazine 25 Mg Tablet) 75 mg PO TID [facility] Last Admin: 10/30/22 06:46 Dose: 75 mg Sodium Chloride () 250 mls @ 15 mls/hr IV .[id number] PRN PRN Reason: Additional IVPB Infusion Sodium Chloride () 250 mls @ 15 mls/hr IV .[id number] PRN PRN Reason: Saline Flush Ceftriaxone Sodium (Rocephin) 1 gm in 50 mls @ 100 mls/hr IV Q24 [facility] Insulin Glargine (Insulin Glargine-Yfgn 100 Unit/Ml Pen) 14 unit SC DAILY@0700 [facility] Last Admin: 10/30/22 08:15 Dose: 14 unit Insulin Human Lispro (Insulin Lispro 100 Unit/Ml Insuln.Pen) 4 unit SC TIDAC [facility] Last Admin: 10/30/22 08:13 Dose: 4 units Latanoprost (Latanoprost 0.005% 1 Bottle) 1 drp EACH EYE [facility] Last Admin: 10/29/22 22:30 Dose: 1 drp Losartan Potassium (Losartan Potassium 25 Mg Tablet) 25 mg PO DAILY [facility] Last Admin: 10/29/22 11:02 Dose: 25 mg Melatonin (Melatonin 3 Mg Tablet) 3 mg PO QHS PRN PRN PRN Reason: INSOMNIA Multivitamins/Minerals (Multivitamins,Ther W-Minerals Tablet) [facility] Last Admin: 10/30/22 08:21 Dose: 1 tablet Ondansetron HCl (Ondansetron 4 Mg/2 Ml Vial) 4 mg IV Q8H PRN PRN PRN Reason: NAUSEA/VOMITING Potassium Chloride (Potassium Chloride Oral Tablet 20 Meq) [facility]q [facility] Stop: 11/01/22 10:31 Pramipexole Dihydrochloride (Pramipexole Di-Hcl 0.125 Mg Tablet) [facility] Last Admin: 10/29/22 22:28 Dose: 0.125 mg Senna/Docusate Sodium (Senna/Docusate Sodium 1 Tablet) 2 tablet PO BID PRN PRN PRN Reason: Constipation Sertraline HCl ([facility]ine 50 Mg Tablet) [facility] Last Admin: 10/29/22 22:30 Dose: 50 mg Sodium Chloride (0.9% Saline Lock 10 Ml Syringe) 10 - 40 ml IV UD PRN PRN Reason: SALINE FLUSH Sodium Chloride (0.9% Saline Lock 10 Ml Syringe) 10 - 40 ml IV UD PRN PRN Reason: SALINE FLUSH Tamsulosin HCl (Tamsulosin Hcl 0.4 Mg Capsule) 0.4 mg PO DAILY@1730 [facility] Last Admin: 10/29/22 17:30 Dose: 0.4 mg Charges/Coding Visit Charges Inpatient E&M: 65890 Subs Hosp L2 10/30/22 1038 <Electronically signed by Adiel Umanzor MD> Cosigner Signature (if applicable): CC: ~ Signed [facility] Work Phone: [phone] Progress note Author Adiel Umanzor [facility] October 29, 2022 2:34pm Note Date/Time October 29, 2022 11 :06am [facility] Medical Records Department [address] [place] [address] Progress Note - Hospitalist 10/29/22 1103 MR#: [id number] Acct: [id number] Name: FRANCISCO THOMAS Rep #:[id number] : 1940 82 From: Adiel Lee PCP: Dr. Jennifer Watt MD Status:ADM CARLOS ALBERTO Location: [place] [address] Reason for Visit Reason for Visit: Diagnoses Retention of urine, unspecified (10/28/22) Fever, unspecified (10/28/22) Weakness (10/28/22) Subjective Subjective Follow-up for generalized weakness with history of right-sided hemiparesis from previous stroke Objective Data Objective Data Vital Signs: Vital Signs Temp Pulse Resp BP Pulse Ox O2 Del Method O2 Flow Rate 99.7 F H 73 16 137/51 H 93 Room Air 2 10/29/22 10:58 10/29/22 10:58 10/29/22 10:58 10/29/22 10:58 10/29/22 10:58 10/29/22 10:58 10/29/22 04:43 Oxygen Flow Rate (L/min) 2 Oxygen Delivery Method Room Air Weight: 183 lb 3.266 oz Body Mass Index (BMI) 24.8 Intake & Output: Intake and Output for Last 24 Hours 10/27/22 10/28/22 10/29/22 23:59 23:59 23:59 Intake Total 1000 / 1000 Output Total 150 / 150 300 / 300 Balance -150 / -150 700 / 700 Lab / Micro Data 10/29/22 05:55 10/29/22 05:55 Labs: Laboratory Results - last 24 hr 10/28/22 18:40: WBC 14.4 H, RBC 3.63 L, Hgb 10.9 L, Hct 33.6 L, MCV 92.6, MCH 30.0, MCHC 32.4, RDW Std Deviation 50.1 H, RDW Coeff of Cait 14.6, Plt Count 229,MPV 10.4, Immature Gran % (Auto) 0.600, Neut % (Auto) 75.9 H, Lymph % (Auto) 8.5L, [place] % (Auto) 13.4 H, Eos % (Auto) 1.0, Baso % (Auto) 0.6, Absolute Neuts (auto) 10.9 H, Absolute Lymphs (auto) 1.22, Nucleated RBC % 0, Differential Comment SEE COMMENT, Diff Path Review May foll, Platelet Estimate ADEQUATE, RBC Morphology N CHROM, Anisocytosis RARE, Macrocytosis RARE, PT 13.6, INR 1.0, APTT22.8 L, Sodium 137, Potassium 3.6, Chloride 100, Carbon Dioxide 30.0, Anion Gap 7, BUN 33 H, Creatinine 1.70 H, Estim Creat Clear Calc 36.14, Est GFR (MDRD) Af Amer 50 L, Est GFR (MDRD) Non-Af 41 L, BUN/Creatinine Ratio 19.4, Glucose 140 H,Lactic Acid 0.9, Calcium 9.1, Total Bilirubin 0.40, AST 13 L, ALT 14 L, AlkalinePhosphatase 63, Total Protein 7.5, Albumin 3.4, Globulin 4.1, Albumin/Globulin Ratio 0.8 L 10/28/22 19:34: Urine Color Yellow, Urine Clarity Clear, Urine pH 7.0, Ur Specific [place] 1.010, Urine Protein 100 H, Urine Glucose (UA) Normal, Urine Ketones Negative, Urine Occult Blood 25 H, Urine Nitrite Negative, Urine Bilirubin Negative, Urine Urobilinogen Normal, Ur Leukocyte Esterase Negative, Urine RBC 0 SEEN, Urine WBC 0 SEEN, Ur Squamous Epith Cells 0 SEEN, Urine Bacteria 0 SEEN, Urine Mucus 0 SEEN 10/28/22 23:40: POC Glucose 182 H 10/29/22 05:55: WBC 14.5 H, RBC 3.22 L, Hgb 9.8 L, Hct 29.7 L, MCV 92.2, MCH 30.4, MCHC 33.0, RDW Std Deviation 49.0 H, RDW Coeff of Cait 14.5, Plt Count 211,MPV 10.6, Immature Gran % (Auto) 0.600, Neut % (Auto) 77.1 H, Lymph % (Auto) 7.9L, [place] % (Auto) 13.5 H, Eos % (Auto) 0.5, Baso % (Auto) 0.4, Absolute Neuts (auto) 11.2 H, Absolute Lymphs (auto) 1.15, Nucleated RBC % 0, Differential Comment SCANNED, Diff Path Review July, Sodium 138, Potassium 3.4 L, Chloride 104, Carbon Dioxide 28.0, Anion Gap 6, BUN 29 H, Creatinine 1.58 H, Estim Creat Clear Calc 38.88, Est GFR (MDRD) Af Amer 54 L, Est GFR (MDRD) Non-Af45 L, BUN/Creatinine Ratio 18.4, Glucose 154 H, Calcium 8.6 Micro: Microbiology 10/28/22 18:50 Nasal Secretion SARS-CoV-2 & FLU Antigen (Rapid) - Final Radiography Diagnostic Testing: Radiology Impression Chest X-Ray 10/28/22 19:08 IMPRESSION: Small left pleural effusion. Electronically Signed: Rafa Lowery MD at 19:43 EDT Reading Location ID and State: [facility] / [place] Tel , Service support , Physical Exam Narrative Seen and examined. Patient has low-grade fever Tmax 100.4 Fahrenheit. Denies focal symptoms of infection. Patient does not look septic/toxic. Patient treated stroke with left-sided hemiparesis and facial weakness, dysphagia/dysarthria in December 2020. Physical exam General: Alert, Oriented x3, Cooperative HEENT: Atraumatic, PERRLA, EOMI, Normocephalic Oral: Oral mucosa dry. No Gingival or Mucosal Lesions/ Ulcerations/inflammatorylesion or exudate Neck: Supple, No JVD, Negative Carotid Bruits Lungs: Air entry diminished in bilateral lung bases. No crepitation/rhonchi Cardiovascular: Regular rate, Regular Rhythm, Normal S1, Normal S2, No murmurs Abdomen: Bowel Sounds Present, Soft, Non Tender, Non-Distended : No dysuria or new lower urinary tract symptoms. No renal angle tenderness. No suprapubic tenderness. Extremities: No edema, Capillary Refill Less than 3 Seconds Skin: No rashes, No breakdown Musculoskeletal: No Tenderness to Palpation of Joints or Extremities Neurological: Left-sided facial weakness with left hemiparesis. Left upper extremity strength 1/5. Left lower extremity is improved about 3+/5. Psych/Mental Status: Flat affect Assessment & Plan Assessment/Plan (1) Weakness: (2) Fever: QUALIFIERS: Fever type: unspecified Qualified Code(s): R50.9 - Fever, unspecified (3) Urinary retention: PLAN: Plan Generalized weakness and failure to thrive beyond left-sided weakness since facial paralysis from December 2020 stroke PT and OT to work with patient. Case management consult. Fever and leukocytosis, etiology unclear: Patient denies focal symptoms of URI including cough, sore throat, postnasal drip or allergic symptoms. Patient denies abdominal pain, chest pain or shortness of breath. No alteration of bowel habit. No new symptoms including dysuria and genitourinary symptoms. Might be viral. Patient denies any contact with sick person. Etiology unclear. Urinalysis unremarkable. Chest x-ray initially reviewed and does not show acute infiltrate but small leftpleural effusion. Blood cultures x2 and urine culture has been sent from ED. Reports pain Urinary urgency/BPH continue finasteride as patient weakness may not be secondary to finasteride. His fever and leukocytosis may be accounting for his weakness. Flomax ordered. Hypoxia/obstructive sleep apnea BiPAP continued DVT prophylaxis subcutaneous Lovenox ordered. Charges/Coding Visit Charges Inpatient E&M: 64703 Subs Hosp L2 10/29/22 143 <Electronically signed by Adiel Umanzor MD> Cosigner Signature (if applicable): CC: ~ Signed [facility] Work Phone: [phone] 379-234308-18-2023 Discharge summary Author Elba Ontiveros [facility] October 29, 2022 1:47am Note Date/Time October 28, 2022 6: 25pm [facility] Medical Records Department [address] [place] [id number] Emergency Department Summary 10/28/22 MR#: [id number] Acct: [id number] Name: FRANCISCO THOMAS Rep #:[id number] : 1940 82 From: Elba Ontiveros MD PCP: Dr. Jennifer Watt MD Status:ADM CARLOS ALBERTO Location: [place] [address] HPI History of Present Illness Chief Complaint: Weakness Informant: patient and spouse/S.O. Onset/Context/Timing Onset: Today Narrative Narrative: Patient presents with generalized weakness. He has some chronic left-sided weakness from prior stroke but states today he feels generally weak all over. He was unable to stand and pivot on his left leg which she can normally do. He did start a new medication last evening, finasteride. He is unsure if this may be a reaction to the medication. He denies fever or chills. He has no chest orabdominal pain. He denies cough or shortness of breath. He denies urinary symptoms. PFSH PFSH Medical History Absent pedal pulses Acute left-sided muscle weakness Chronic anemia Congestive heart failure Coronary artery disease Depression Dysphagia Essential hypertension Facial droop due to acute stroke History of CVA (cerebrovascular accident) (12/2020) Hydrocele in adult Hyperlipidemia Hypertension Incontinence Limb weakness Normocytic normochromic anemia Obstructive Sleep Apnea-Hypopnea Syndrome Osteoarthritis Peripheral vascular occlusive disease Pneumonia Proteinuria due to type 2 diabetes mellitus Recurrent inguinal hernia of right side without obstruction or gangrene Restless legs Right pontine CVA Right renal artery stenosis Skin lesion of face SOB (shortness of breath) Type 2 diabetes mellitus Unsteadiness Ventricular tachycardia seen on handtools repairer (02/20/21) Home Medications multivitamin,[id number] (Complete Multivitamin tablet) 1 tab PO QDAY supplement 03/03/17 [History Last Taken 02/23/22] aspirin 81 mg chewable tablet 81 mg PO BREAKFAST heart health 01/02/21 [History Last Taken 02/24/22] Handicap Placard #1 ea 02/12/21 [Rx Last Taken Unknown] doxazosin 8 mg tablet 8 mg PO QHS bph 02/24/22 [History Last Taken 02/23/22] ezetimibe 10 mg tablet (Zetia) 10 mg PO QHS cholesterol 02/24/22 [History Last Taken 02/23/22] latanoprost 0.005 % eye drops 1 drp EACH EYE HS eyes 02/24/22 [History Last Taken 02/23/22] pramipexole 0.125 mg tablet 0.125 mg PO QHS parkinsons 02/24/22 [History Last Taken 02/23/22] sertraline 50 mg tablet 50 mg PO QHS mood 02/24/22 [History Last Taken 02/24/22] insulin lispro 100 unit/mL subcutaneous pen (Humalog KwikPen (U-100) Insulin) 6 unit subcut TIDAC PRN diabetes 03/17/22 [History Last Taken Unknown] gabapentin 100 mg capsule 100 mg PO BID pain #180 caps 03/18/22 [Rx Last Taken Unknown] gabapentin 300 mg capsule 300 mg PO 2100 pain #90 caps 03/18/22 [Rx Last Taken Unknown] losartan 25 mg tablet 25 mg PO DAILY BP 04/12/22 [History Last Taken Unknown] clopidogrel 75 mg tablet (Plavix) 75 mg PO DAILY blood thinner #90 tabs 06/07/22[Rx Last Taken Unknown] pen needle, diabetic 32 gauge x (BD Sanaz 2nd Gen Pen Needle) #50 ea 06/17/22 [Rx Last Taken Unknown] clonidine HCl 0.1 mg tablet 0.1 mg PO BID #60 tabs 07/09/22 [Rx Last Taken Unknown] furosemide 40 mg tablet (Lasix) 40 mg PO DAILY #60 tabs 08/03/22 [Rx Last Taken Unknown] hydralazine 25 mg tablet 75 mg (3 x 25 mg) PO TID BP #270 tabs 08/05/22 [Rx Last Taken Unknown] insulin glargine 100 unit/mL (3 mL) subcutaneous pen (Basaglar KwikPen U-100 Insulin) 18 unit (0.18 mL) subcut DAILY #15 mL 08/10/22 [Rx Last Taken Unknown] carvedilol 6.25 mg tablet 6.25 mg PO BID #60 tabs 08/12/22 [Rx Last Taken Unknown] triamcinolone acetonide 0.1 % topical cream 1 applic topical BID 10 days #30 grams 10/12/22 [Rx Last Taken Unknown] amlodipine 10 mg tablet 10 mg PO DAILY BP #90 tabs 10/15/22 [Rx Last Taken Unknown] oxygen #1 ea 10/26/22 [Rx Last Taken Unknown] Allergy/AdvReac Type Severity Reaction Status Date / Time meloxicam [From Mobic] Allergy Intermediate itching Verified 10/28/22 17:41 pravastatin [From Pravachol] AdvReac Mild myalgia Verified 10/28/22 17:41 cholestyramine AdvReac hypoglycemi Verified 10/28/22 17:41 a Family History Mother Hypertension Cancer Father Heart disease Diabetes Surgical History History of cataract surgery History of herniorrhaphy History of lumbar laminectomy History of stent insertion of renal artery (08/05/21) Status post laser cataract surgery of left eye Social History household members: spouse and other details: Abigail is his 's name housing: house number of children: 2 current occupational status: retired and other details: worked for [employer] prior to retiring leisure activities: other Smoking Status: Never smoker Electronic Cigarette Use: not used second hand exposure: No alcohol intake: former substance use type: does not use what type of physical activity do you participate in: walking frequency: 1-2 times per week inés/judaism: None seatbelt use: always ROS ROS ED Constitutional Constitutional ED: Denies chills or fever(s) Eyes Eyes: Denies change in vision ENT ENT ED: Denies rhinorrhea or sore throat Cardiovascular Cardiovascular: Denies chest pain or palpitations Respiratory/Chest Respiratory/Chest: Denies cough or dyspnea Gastrointestinal Gastrointestinal: Denies abdominal pain, diarrhea, nausea or vomiting Genitourinary Genitourinary ED: Denies dysuria Musculoskeletal Musculoskeletal: Denies back pain or extremity pain Integumentary Denies Abrasions or rash Neurologic Neurologic: Reports weakness; Denies headache(s) Psychiatric Psychiatric: Denies anxiety or depression Allergic/Immunologic Allergic/Immunologic ED: Denies lip swelling or urticaria EXAM Physical Exam Const Vital Signs: 10/28/22 17:39 10/28/22 18:24 10/28/22 18:25 Temperature 99.2 F H 100.4 F H Temperature Source Temporal Oral Pulse Rate 80 Respiratory Rate 14 Respiratory Effort Respiratory Pattern Blood Pressure 117/57 L Blood Pressure Mean 77 Pulse Ox 91 Oxygen Delivery Method Room Air Room Air Oxygen Flow Rate (L/min) 10/28/22 19:02 10/28/22 20:03 10/28/22 21:36 Temperature 99.1 F 100.2 F H Temperature Source Oral Oral Pulse Rate 76 71 Respiratory Rate 21 H 22 H Respiratory Effort Normal Non-Labored Respiratory Pattern Normal Blood Pressure 136/62 H 132/53 H Blood Pressure Mean 86 79 Pulse Ox 90 96 Oxygen Delivery Method Room Air Nasal Cannula Oxygen Flow Rate (L/min) 2 10/28/22 22:13 Temperature 98.9 F Temperature Source Oral Pulse Rate 69 Respiratory Rate 20 H Respiratory Effort Respiratory Pattern Blood Pressure 137/56 H Blood Pressure Mean 83 Pulse Ox 96 Oxygen Delivery Method Nasal Cannula Oxygen Flow Rate (L/min) 2 Positive well nourished and well developed General Appearance ED: well developed HEENT Reports normocephalic and head/scalp atraumatic Eyes PERRL and EOMs intact bilaterally Neck supple Chest Wall inspection of chest normal and palpation of chest normal Resp normal respiratory effort and clear to auscultation bilaterally Cardio regular rate and regular rhythm GI non-tender Auscultation: hypoactive bowel sounds Palpation: soft Extremity Extremity Narrative: Generalized weakness to the extremities, left greater than right. Patient does have chronic left-sided weakness from prior stroke. Neuro oriented x3 Sensorium / Orientation: alert Psych mental status grossly normal Skin Skin Narrative: Skin is warm to the touch but I do not appreciate any lesions or rashes. MDM MDM MDM Narrative Medical decision making narrative: Took an oral temperature I saw the patient. His temperature is 100.4. Labwork obtained to evaluate for leukocytosis, anemia, and electrolyte derangement. Patient given Tylenol. Urinalysis obtained to evaluate for infection/hematuria. Chest x- ray obtained to evaluate for acute lung pathology, cardiac size, or mediastinal abnormality. History & Record Review Discussion w/independent historian: Patient and Significant other Lab Data Attestation: I reviewed the patient's lab results. Labs: Laboratory Results - last 24 hr 10/28/22 10/28/22 18:40 19:34 WBC 14.4 H RBC 3.63 L Hgb 10.9 L Hct 33.6 L MCV 92.6 MCH 30.0 MCHC 32.4 RDW Std Deviation 50.1 H RDW Coeff of Cait 14.6 Plt Count 229 MPV 10.4 Immature Gran % (Auto) 0.600 Neut % (Auto) 75.9 H Lymph % (Auto) 8.5 L [place] % (Auto) 13.4 H Eos % (Auto) 1.0 Baso % (Auto) 0.6 Absolute Neuts (auto) 10.9 H Absolute Lymphs (auto) 1.22 Nucleated RBC % 0 Differential Comment SEE COMMENT Diff Path Review May foll Platelet Estimate ADEQUATE RBC Morphology N CHROM Anisocytosis RARE Macrocytosis RARE PT 13.6 INR 1.0 APTT 22.8 L Sodium 137 Potassium 3.6 Chloride 100 Carbon Dioxide 30.0 Anion Gap 7 BUN 33 H Creatinine 1.70 H Estim Creat Clear Calc 36.14 Est GFR (MDRD) Af Amer 50 L Est GFR (MDRD) Non-Af 41 L BUN/Creatinine Ratio 19.4 Glucose 140 H Lactic Acid 0.9 Calcium 9.1 Total Bilirubin 0.40 AST 13 L ALT 14 L Alkaline Phosphatase 63 Total Protein 7.5 Albumin 3.4 Globulin 4.1 Albumin/Globulin Ratio 0.8 L Urine Color Yellow Urine Clarity Clear Urine pH 7.0 Ur Specific [place] 1.010 Urine Protein 100 H Urine Glucose (UA) Normal Urine Ketones Negative Urine Occult Blood 25 H Urine Nitrite Negative Urine Bilirubin Negative Urine Urobilinogen Normal Ur Leukocyte Esterase Negative Urine RBC 0 SEEN Urine WBC 0 SEEN Ur Squamous Epith Cells 0 SEEN Urine Bacteria 0 SEEN Urine Mucus 0 SEEN Radiography Chest X-Ray - ED: 1 View, Read by ED Physician and - (Small left oral effusion. No focal infiltrate.) EKG Initial EKG: Attestation: I personally reviewed and interpreted this EKG as follows: Interpretation: Sinus Rhythm (Sinus 80 with no acute ischemia.) Treatment and Re-Evaluation :: CBC was white count of 14.4 with 76% neutrophils. Hemoglobin is 10.9. Chemistry studies reveal a BUN of 33 and a creatinine of 1.70. This is actuallyslightly improved when compared to lab values from previously this year. LFTs are unremarkable. Lactic acid is normal at 0.9. Urinalysis reveals no evidenceof infection. Swab for COVID and influenza is negative. On repeat evaluation patient is on a couple liters of oxygen via nasal cannula. Nursing staff states that he has sleep apnea and normally wears CPAP at night. When he was falling asleep his O2 sats were around 89 or 90% so he was put on oxygen. At this time patient has generalized weakness and is unable to ambulate or care for himself at home. He was too weak for his to even help him with the restroom today. I will speak with hospitalist regarding admission. Blood and urine cultures are still pending. Discharge Plan Triage Chief Complaint: Weakness ED Provider: Elba Ontiveros Dx/Rx/DC Orders Clinical Impression: Fever, Weakness Prescriptions: No Action multivitamin,[id number]-cfyr-aruinfux tablet tablet 1 tab PO QDAY furosemide [Lasix] 40 mg tablet 40 mg PO DAILY Qty: 60 3RF insulin lispro [Humalog KwikPen Insulin] 100 unit/mL insulin pen 6 unit subcut TIDAC PRN (Reason: diabetes) Patient Comments: if bs over 130 aspirin 81 mg tablet,chewable 81 mg PO BREAKFAST latanoprost 0.005 % drops 1 drp EACH EYE HS doxazosin 8 mg tablet 8 mg PO QHS pramipexole 0.125 mg tablet 0.125 mg PO QHS sertraline 50 mg tablet 50 mg PO QHS ezetimibe [Zetia] 10 mg tablet 10 mg PO QHS Rx Instructions: take at bedtime losartan 25 mg tablet 25 mg PO DAILY (DME) Handicap Placard See Rx Instructions .Route .MEDSUPPLY Qty: 1 0RF Rx Instructions: Length of time: 5 years gabapentin 100 mg capsule 100 mg PO BID Qty: 180 3RF gabapentin 300 mg capsule 300 mg PO 2100 Qty: 90 3RF clopidogrel [Plavix] 75 mg tablet 75 mg PO DAILY Qty: 90 3RF (DME) pen needle, diabetic [BD Sanaz 2nd Gen Pen Needle] 32 gauge x needle See Rx Instructions .ROUTE .MEDSUPPLY Qty: 50 2RF Rx Instructions: use once daily to adminster insulin as directed. clonidine HCl 0.1 mg tablet 0.1 mg PO BID Qty: 60 11RF hydralazine 25 mg tablet 75 mg PO TID Qty: 270 3RF insulin glargine [Basaglar KwikPen U-100 Insulin] 100 unit/mL (3 mL) insulin pen 18 unit subcut DAILY Qty: 15 6RF carvedilol 6.25 mg tablet 6.25 mg PO BID Qty: 60 11RF Rx Instructions: must administer with a meal/food triamcinolone acetonide 0.1 % cream 1 applic topical BID 10 Days Qty: 30 1RF amlodipine 10 mg tablet 10 mg PO DAILY Qty: 90 3RF (DME) oxygen See Rx Instructions .Route .MEDSUPPLY Qty: 1 0RF Rx Instructions: DC ALL OXYGEN ORDERS Primary Care Provider: Jennifer Watt Referrals: Jennifer Watt MD [Primary Care Provider] - Disposition Disposition: Acute Care [facility] What to do if you have Problems For any increased pain, shortness of breath, bleeding, nausea or vomiting, chestpain, or any unexpected problems, contact your Primary Care Provider. Call [facility] ([phone]) or report to the closest Emergency Room. Call 911 if necessary. 10/29/22 0147 <Electronically signed by Elba Ontiveros MD> Cosigner Signature (if applicable): CC: Dr. Jennifer Watt MD ~ Signed [facility] Work Phone: [phone]) 674-357908-18-2023 History and physical note Author Tato Avendaño [facility] October 29, 2022 12:52am Note Date/Time October 28, 2022 10 :26pm [facility] Medical Records Department [address] [facility] [place] [address] H&P Exam - Hospitalist 10/28/222225 MR#: [id number] Acct: [id number] Name: FRANCISCO THOMAS Rep #:[id number] : 1940 82 From: Tato Avendaño MD PCP: Dr. Jennifer Watt MD Status:ADM CARLOS ALBERTO Location: [place] [address] HPI - General General Date of Admission: 10/28/22 Date of Service: 10/28/22 Chief Complaint: Weakness HPI Narrative FRANCISCO THOMAS, is a 82 M with a significant history of hypertension; diabetes mellitus; CVA with residual left-sided weakness who presents emergency department with generalized weakness that started the same day. Patient is too weak that he is unable to get up from the bed. He fell back onto his bed in an attempt to get up. Of note patient was started on finasteride a day before presentation for BPH. Patient attributes his symptoms of weakness to the finasteride. Also patient isawaiting Flomax in the mail. He described his BPH symptoms as urinary urgency Patient denies fever at home. He reports chills. At the emergency department patient was found to have low-grade fever and leukocytosis. At the emergency department previously patient was found to have hypoxia. Reported that he is on home BiPAP settings 26/01 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 mellitus Recurrent inguinal hernia of right side without obstruction or gangrene Restless legs Right pontine CVA Right renal artery stenosis Skin lesion of face SOB (shortness of breath) Type 2 diabetes mellitus Unsteadiness Ventricular tachycardia seen on handtools repairer (02/20/21) Home Medications multivitamin,yw-kgbx-[id number] (Complete Multivitamin tablet) 1 tab PO QDAY supplement 03/03/17 [History Last Taken 02/23/22] aspirin 81 mg chewable tablet 81 mg PO BREAKFAST heart health 01/02/21 [History Last Taken 02/24/22] Handicap Placard #1 ea 02/12/21 [Rx Last Taken Unknown] doxazosin 8 mg tablet 8 mg PO QHS bph 02/24/22 [History Last Taken 02/23/22] ezetimibe 10 mg tablet (Zetia) 10 mg PO QHS cholesterol 02/24/22 [History Last Taken 02/23/22] latanoprost 0.005 % eye drops 1 drp EACH EYE HS eyes 02/24/22 [History Last Taken 02/23/22] pramipexole 0.125 mg tablet 0.125 mg PO QHS parkinsons 02/24/22 [History Last Taken 02/23/22] sertraline 50 mg tablet 50 mg PO QHS mood 02/24/22 [History Last Taken 02/24/22] insulin lispro 100 unit/mL subcutaneous pen (Humalog KwikPen (U-100) Insulin) 6 unit subcut TIDAC PRN diabetes 03/17/22 [History Last Taken Unknown] gabapentin 100 mg capsule 100 mg PO BID pain #180 caps 03/18/22 [Rx Last Taken Unknown] gabapentin 300 mg capsule 300 mg PO 2100 pain #90 caps 03/18/22 [Rx Last Taken Unknown] losartan 25 mg tablet 25 mg PO DAILY BP 04/12/22 [History Last Taken Unknown] clopidogrel 75 mg tablet (Plavix) 75 mg PO DAILY blood thinner #90 tabs 06/07/22[Rx Last Taken Unknown] pen needle, diabetic 32 gauge x 32 (BD Sanaz 2nd Gen Pen Needle) #50 ea 06/17/22 [Rx Last Taken Unknown] clonidine HCl 0.1 mg tablet 0.1 mg PO BID #60 tabs 07/09/22 [Rx Last Taken Unknown] furosemide 40 mg tablet (Lasix) 40 mg PO DAILY #60 tabs 08/03/22 [Rx Last Taken Unknown] hydralazine 25 mg tablet 75 mg (3 x 25 mg) PO TID BP #270 tabs 08/05/22 [Rx Last Taken Unknown] insulin glargine 100 unit/mL (3 mL) subcutaneous pen (Basaglar KwikPen U-100 Insulin) 18 unit (0.18 mL) subcut DAILY #15 mL 08/10/22 [Rx Last Taken Unknown] carvedilol 6.25 mg tablet 6.25 mg PO BID #60 tabs 08/12/22 [Rx Last Taken Unknown] triamcinolone acetonide 0.1 % topical cream 1 applic topical BID 10 days #30 grams 10/12/22 [Rx Last Taken Unknown] amlodipine 10 mg tablet 10 mg PO DAILY BP #90 tabs 10/15/22 [Rx Last Taken Unknown] oxygen #1 ea 10/26/22 [Rx Last Taken Unknown] Allergy/AdvReac Type Severity Reaction Status Date / Time meloxicam [From Mobic] Allergy Intermediate itching Verified 10/28/22 17:41 pravastatin [From Pravachol] AdvReac Mild myalgia Verified 10/28/22 17:41 cholestyramine AdvReac hypoglycemi Verified 10/28/22 17:41 a Family History Mother Hypertension Cancer Father Heart disease Diabetes Surgical History History of cataract surgery History of herniorrhaphy History of lumbar laminectomy History of stent insertion of renal artery (08/05/21) Status post laser cataract surgery of left eye Social History household members: spouse and other details: Abigail is his 's name housing: house number of children: 2 current occupational status: retired and other details: worked for [employer] prior to retiring leisure activities: other Smoking Status: Never smoker Electronic Cigarette Use: not used second hand exposure: No alcohol intake: former substance use type: does not use what type of physical activity do you participate in: walking frequency: 1-2 times per week inés/judaism: None seatbelt use: always ROS ROS Narrative Pertinent positives and pertinent negatives as noted in HPI. All other systems were reviewed and are negative Vital Signs Vital Signs Vital Signs: 10/28/22 17:39 10/28/22 18:24 10/28/22 18:25 Temperature 99.2 F H 100.4 F H Temperature Source Temporal Oral Pulse Rate 80 Respiratory Rate 14 Respiratory Effort Respiratory Pattern Blood Pressure 117/57 L Blood Pressure Mean 77 Pulse Ox 91 Oxygen Delivery Method Room Air Room Air Oxygen Flow Rate (L/min) 10/28/22 19:02 10/28/22 20:03 10/28/22 21:36 Temperature 99.1 F 100.2 F H Temperature Source Oral Oral Pulse Rate 76 71 Respiratory Rate 21 H 22 H Respiratory Effort Normal Non-Labored Respiratory Pattern Normal Blood Pressure 136/62 H 132/53 H Blood Pressure Mean 86 79 Pulse Ox 90 96 Oxygen Delivery Method Room Air Nasal Cannula Oxygen Flow Rate (L/min) 2 10/28/22 22:13 Temperature 98.9 F Temperature Source Oral Pulse Rate 69 Respiratory Rate 20 H Respiratory Effort Respiratory Pattern Blood Pressure 137/56 H Blood Pressure Mean 83 Pulse Ox 96 Oxygen Delivery Method Nasal Cannula Oxygen Flow Rate (L/min) 2 Weight Weight: 86.2 kg Body Mass Index (BMI) 25.7 Physical Exam Narrative Physical exam: General: Well-nourished, well-developed. Head: Normocephalic, atraumatic, no tenderness Eyes: Vision is grossly intact. EOMI ENT, no trauma, moist mucous membranes, no rhinorrhea Neck: Nontender, No thyromegaly. CVS: Regular rate and rhythm. S1-S2 present. No murmur, gallop or rub. Respiratory : clear to auscultation bilaterally, chest wall nontender Abdomen: Soft, nontender, nondistended, normal bowel sounds, no masses : Deferred Back: Nontender, no CVA tenderness, no midline spinal tenderness, deformities, step-offs Extremities: Nontender full range of motion, no trauma Skin: Normal color, no trauma, abrasions Neuro: Alert, oriented, cranial nerves II through XII grossly intact. Unable toraise his left hand. Can raise right hand. Strength in right leg 5 out of 5. Strength in left leg 3 out of 5. Psychiatry: Normal mood. Normal affect. Not depressed. Not anxious. Results Lab / Micro Data 10/28/22 18:40 10/28/22 18:40 Labs: Laboratory Results - last 24 hr 10/28/22 18:40: WBC 14.4 H, RBC 3.63 L, Hgb 10.9 L, Hct 33.6 L, MCV 92.6, MCH 30.0, MCHC 32.4, RDW Std Deviation 50.1 H, RDW Coeff of Cait 14.6, Plt Count 229,MPV 10.4, Immature Gran % (Auto) 0.600, Neut % (Auto) 75.9 H, Lymph % (Auto) 8.5L, [place] % (Auto) 13.4 H, Eos % (Auto) 1.0, Baso % (Auto) 0.6, Absolute Neuts (auto) 10.9 H, Absolute Lymphs (auto) 1.22, Nucleated RBC % 0, Differential Comment SEE COMMENT, Diff Path Review July foll, Platelet Estimate ADEQUATE, RBC Morphology N CHROM, Anisocytosis RARE, Macrocytosis RARE, PT 13.6, INR 1.0, APTT22.8 L, Sodium 137, Potassium 3.6, Chloride 100, Carbon Dioxide 30.0, Anion Gap 7, BUN 33 H, Creatinine 1.70 H, Estim Creat Clear Calc 36.14, Est GFR (MDRD) Af Amer 50 L, Est GFR (MDRD) Non-Af 41 L, BUN/Creatinine Ratio 19.4, Glucose 140 H,Lactic Acid 0.9, Calcium 9.1, Total Bilirubin 0.40, AST 13 L, ALT 14 L, AlkalinePhosphatase 63, Total Protein 7.5, Albumin 3.4, Globulin 4.1, Albumin/Globulin Ratio 0.8 L 10/28/22 19:34: Urine Color Yellow, Urine Clarity Clear, Urine pH 7.0, Ur Specific [place] 1.010, Urine Protein 100 H, Urine Glucose (UA) Normal, Urine Ketones Negative, Urine Occult Blood 25 H, Urine Nitrite Negative, Urine Bilirubin Negative, Urine Urobilinogen Normal, Ur Leukocyte Esterase Negative, Urine RBC 0 SEEN, Urine WBC 0 SEEN, Ur Squamous Epith Cells 0 SEEN, Urine Bacteria 0 SEEN, Urine Mucus 0 SEEN Micro: Microbiology 10/28/22 18:50 Nasal Secretion SARS-CoV-2 & FLU Antigen (Rapid) - Final Assessment & Plan Assessment/Plan (1) Weakness: (2) Fever: QUALIFIERS: Fever type: unspecified Qualified Code(s): R50.9 - Fever, unspecified (3) Urinary retention: PLAN: Plan Generalized weakness PT and OT to work with patient. Case management consult. Fever and leukocytosis Etiology unclear. Urinalysis unremarkable. Impression of chest x-ray by radiology: Small left pleural effusion. Actual chest x-ray image was independently interpreted and I agree with the interpretation. Trend CBC. Trend vitals. Urinary urgency/BPH We will continue finasteride as patient weakness may not be secondary to finasteride. His fever and leukocytosis may be accounting for his weakness. Flomax ordered. Hypoxia/obstructive sleep apnea BiPAP continued DVT prophylaxis subcutaneous Lovenox ordered. Time spent in the patient's overall evaluation,decision-making process, review of diagnostic data, adjustment of management, discussion with other providers, nursing nursing and ancillary staff involved in patient's care documentation, 65minutes. Charges/Coding Visit Charges Inpatient E&M: 25959 Init Hosp L3 10/29/22 0052 <Electronically signed by Tato Avendaño MD> Cosigner Signature (if applicable): CC: Dr. Tato Avendaño MD; Dr. Jennifer Watt MD~ Signed [facility] Work Phone: 1(354) 915-335802-11-2023 Hospital Discharge instructions Additional Instructions Discharge home with 04/24/2022, [facility], [facility], therapy Home Exercise Program.[facility] Work Phone: [phone]) 366-312202-10-[address] Huffman [facility] April 23, 2022 1:43pm Note Date/Time April 22, 2022 7 :33pm [facility] Medical Records Department [address] [address] Discharge Summary 04/22/221930 MR#: [id number] Acct: [id number] Name: FRANCISCO THOMAS Rep #:[id number] : 1940 81 From: Johnathan Huffman MD PCP: Dr. Jennifer Watt MD Status:ADM IN Location: [place] [id number] Providers Date of Admission: 04/12/22 Primary Care Physician: Dr. Jennifer Watt MD Consultations 04/21/22 10:40 Consult: Hospice / Palliative Care Routine Consulting Provider: [facility] Reason for Consult: PALLIATIVE - CHF, hx of stroke, acute respiratory failure EMERGENT Consult: No MD Notified: Yes Date Notified: 04/21/22 Time Notified: 10:40 Method of Notification: Text Reason For Visit: CHF,L PLURAL INFUSION,CHRONIC KIDNEY DISEASE Diagnosis Discharge Diagnosis (1) Debility: Status: Acute Code(s): R53.81 - Other malaise (2) Acute respiratory failure with hypoxia: Status: Acute Code(s): J96.01 - Acute respiratory failure with hypoxia (3) Acute on chronic diastolic congestive heart failure: Status: Chronic Code(s): I50.33 - Acute on chronic diastolic (congestive) heart failure (4) Acute kidney injury: Status: Acute Code(s): N17.9 - Acute kidney failure, unspecified (5) Pleural effusion, left: Status: Acute Code(s): J90 - Pleural effusion, not elsewhere classified (6) Chronic kidney disease, stage 3b: Status: Acute Code(s): N18.32 - Chronic kidney disease, stage 3b (7) Hypertension: Status: Chronic Code(s): I10 - Essential (primary) hypertension (8) Stroke: Status: Acute Code(s): I63.9 - Cerebral infarction, unspecified (9) BPH (benign prostatic hyperplasia): Status: Acute Code(s): N40.0 - Benign prostatic hyperplasia without lower urinary tract symptoms (10) Hyperlipidemia: Status: Acute Code(s): E78.5 - Hyperlipidemia, unspecified (11) Iron deficiency anemia: Status: Acute Code(s): D50.9 - Iron deficiency anemia, unspecified (12) Diabetes mellitus: Status: Acute Code(s): E11.9 - Type 2 diabetes mellitus without complications (13) Glaucoma: Status: Acute Code(s): H40.9 - Unspecified glaucoma (14) Restless leg syndrome: Status: Acute Code(s): G25.81 - Restless legs syndrome (15) Depression: Status: Acute Code(s): F32.A - Depression, unspecified Plan 81 year old male with below past medical history hospitalized for acute respiratory failure with hypoxia secondary to acute on chronic diastolic heart failure, complicated by acute kidney injury, iron deficiency anemia, left pleural effusion requiring thoracentesis, admitted to TCU with debility, here for rehabilitation, strengthening, prior to discharge home with . * Debility - PT/OT. * Pain - Tylenol 1000mg q6h prn pain (1-10). * Bowel - Miralax 17gm daily, senna/colace 2 tablets bid prn, Dulcolax 10mg pr daily prn. * Adult immunization - Administer pneumonia vaccine, covid19 vaccine, flu vaccine. * DVT prophylaxis - Hold, on dual antiplatelet therapy. * Shortness of breath - Albuterol 2.5mg neb q2h prn. * Hypertension - Coreg 25mg bidcm, Losartan 25mg daily, HCTZ 25mg daily, Amlodipine 5mg daily, Hydralazine 75mg tid. * Stroke - Plavix 75mg daily, Aspirin 81mg daily. * Chronic diastolic heart failure - Coreg 25mg bidcm, Losartan 25mg daily, Hydralazine 75mg tid, Aldactone 50mg daily. * BPH - Doxazosin 8mg qhs. * Hyperlipidemia - Zetia 10mg qhs. * Iron deficiency anemia - Ferrous sulfate 325mg every other day. * Neuropathic pain - Gabapentin 100mg bid, 300mg qhs. * Diabetes Mellitus II - Glargine 18 units daily, Lispro 6 units tidac. * Glaucoma - Latanoprost 0.005% 1gtt ou qhs. * Nutrition - MVI daily. * Restless Leg syndrome - Mirapaex 0.125mg qhs. 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 Medications at Discharge Home Medications multivitamin,[id number]-atcw-[id number] (Complete Multivitamin tablet) 1 tab PO QDAY supplement 03/03/17 aspirin 81 mg chewable tablet 81 mg PO BREAKFAST heart health 01/02/21 Handicap Placard #1 ea 02/12/21 pen needle, diabetic 32 gauge x (BD Sanaz 2nd Gen Pen Needle) #50 ea 06/02/21 carvedilol 25 mg tablet 25 mg PO BID heart 02/24/22 clopidogrel 75 mg tablet (Plavix) 75 mg PO DAILY blood thinner 02/24/22 doxazosin 8 mg tablet 8 mg PO QHS bph 02/24/22 ezetimibe 10 mg tablet (Zetia) 10 mg PO QHS cholesterol 02/24/22 latanoprost 0.005 % eye drops 1 drp EACH EYE HS eyes 02/24/22 pramipexole 0.125 mg tablet 0.125 mg PO QHS parkinsons 02/24/22 sertraline 50 mg tablet 50 mg PO QHS mood 02/24/22 insulin lispro 100 unit/mL subcutaneous pen (Humalog KwikPen (U-100) Insulin) 6 unit subcut TIDAC PRN diabetes 03/17/22 gabapentin 100 mg capsule 100 mg PO BID pain #180 caps 03/18/22 gabapentin 300 mg capsule 300 mg PO 2100 pain #90 caps 03/18/22 hydrochlorothiazide 25 mg tablet 25 mg PO DAILY diuretic 04/05/22 amlodipine 5 mg tablet 5 mg PO DAILY BP 04/12/22 ferrous sulfate 325 mg (65 mg iron) tablet (FeroSul) 325 mg PO QODAY Supplement 04/12/22 hydralazine 25 mg tablet 75 mg PO TID BP 04/12/22 insulin glargine-yfgn 100 unit/mL (3 mL) subcutaneous pen 18 unit (0.18 mL) subcut DAILY diabetes #15 mL 04/12/22 losartan 25 mg tablet 25 mg PO DAILY BP 04/12/22 Hospital Course Operations None Procedures None Summary of Care Provided Minutes Spent on Discharge: 35 Hospital Course: 81 year old male with below past medical history hospitalized for acute respiratory failure with hypoxia secondary to acute on chronic diastolic heart failure, complicated by acute kidney injury, iron deficiency anemia, left pleural effusion requiring thoracentesis, admitted to TCU with debility, here for rehabilitation, strengthening, prior to discharge home with . Discharge home with 04/24/2022, [facility], therapy Home Exercise Program. Physical Exam Const alert General Appearance: cooperative HEENT normocephalic Eyes PERRL and EOMs intact bilaterally Neck supple, no JVD and no carotid bruits Resp normal respiratory effort, normal air movement and clear to auscultation bilaterally Cardio regular rate and regular rhythm GI normal to inspection, nondistended, normoactive bowel sounds, non-tender and non-distended Extremity normal capillary refill General Extremity: Negative for edema Skin no rashes or lesions noted General Skin Exam: no breakdown Psych affect normal Appearance: appropriate Weight / BMI Weight Weight: 80.422 kg Body Mass Index (BMI) 24.5 ABG / Lab / Microbiology Data Result Diagrams: 04/20/22 05:21 04/22/22 05:35 Laboratory: Laboratory Results - last 24 hr 04/21/22 21:49: POC Glucose 153 H 04/22/22 05:35: Sodium 136, Potassium 4.4, Chloride 104, Carbon Dioxide 26.0, Anion Gap 6, BUN 62 H, Creatinine 2.20 H, Estim Creat Clear Calc 28.41, Est GFR (MDRD) Af Amer 37 L, Est GFR (MDRD) Non-Af 31 L, BUN/Creatinine Ratio 28.2 H, Glucose 113 H, Calcium 9.0 04/22/22 06:08: POC Glucose 114 H 04/22/22 06:50: POC Glucose 129 H 04/22/22 11:14: POC Glucose 154 H 04/22/22 16:43: POC Glucose 101 Microbiology: Microbiology 04/16/22 05:30 Nasal Secretion SARS-CoV-2 Antigen (Rapid) - Final D/C Instructions Discharge Diet: No restrictions Discharge Activity: Return to Normal Activity, May Shower and Use Walker Weight Bearing Status: Weight bearing as tolerated Call your doctor if you observe: Fever of 101 or Higher, Inability to urinate, Inability to have a bowel movement, Shortness of breath, Dizziness, Fainting spells, Swelling in the ankles, Chest pain and Uncontrolled pain Additional Instructions: Discharge home with 04/24/2022, [facility], therapy Home Exercise Program. Meaningful Use Info Meaningful Use Diagnoses (Choose all that apply): None applicable Discharge Plan Admission Admit Date/Time: 04/12/22 14:07 Primary Reason for Your Visit: Debility. Attending Provider: Johnathan Huffman Chi Primary Care Provider: Jennifer Watt Consulting Providers: Slama Giraldo ; Franklin Reyes ; Elizabeth Morejon ; Christin Shultz ; Smiley Zepeda PADDER CUSHION Instructions Additional Instructions / Restrictions: Discharge home with 04/24/2022, [facility], therapy Home Exercise Program. Discharge Orders/Prescriptions Prescriptions: Continued multivitamin,yf-qpdi-pgpgrzjl tablet tablet 1 tab PO QDAY insulin lispro [Humalog KwikPen Insulin] 100 unit/mL insulin pen 6 unit subcut TIDAC PRN (Reason: diabetes) Label Comments: if bs over 130 hydrochlorothiazide 25 mg tablet 25 mg PO DAILY aspirin 81 mg tablet,chewable 81 mg PO BREAKFAST latanoprost 0.005 % drops 1 drp EACH EYE HS carvedilol 25 mg tablet 25 mg PO BID Rx Instructions: must administer with a meal/food clopidogrel [Plavix] 75 mg tablet 75 mg PO DAILY doxazosin 8 mg tablet 8 mg PO QHS pramipexole 0.125 mg tablet 0.125 mg PO QHS sertraline 50 mg tablet 50 mg PO QHS ezetimibe [Zetia] 10 mg tablet 10 mg PO QHS Rx Instructions: take at bedtime insulin glargine-yfgn 100 unit/mL (3 mL) insulin pen 18 unit subcut DAILY Qty: 15 0RF hydralazine 25 mg tablet 75 mg PO TID amlodipine 5 mg tablet 5 mg PO DAILY ferrous sulfate [FeroSul] 325 mg (65 mg iron) tablet 325 mg PO QODAY losartan 25 mg tablet 25 mg PO DAILY gabapentin 100 mg capsule 100 mg PO BID Qty: 180 3RF gabapentin 300 mg capsule 300 mg PO 2100 Qty: 90 3RF Discontinued sennosides-docusate sodium [Stool Softener-Stimulant Laxat] 8.6-50 mg Tablet 2 tab PO BID PRN PRN (Reason: Constipation) Qty: 0 0RF acetaminophen 500 mg Tablet 1,000 mg PO Q6H PRN PRN (Reason: Pain Score 1-10) Qty: 0 0RF albuterol sulfate 2.5 mg /3 mL (0.083 %) Solution For Nebulization 2.5 mg inhalation Q2H PRN PRN (Reason: Dyspnea, wheezing) Qty: 0 0RF insulin lispro [Humalog KwikPen Insulin] 100 unit/mL Insulin Pen 6 unit subcut TIDAC Qty: 15 0RF polyethylene glycol 3350 17 gram powder in packet 17 g PO DAILY spironolactone 50 mg tablet 50 mg PO DAILY insulin lispro [Humalog KwikPen Insulin] 100 unit/mL insulin pen See Protocol subcut ACHS Protocol: 4. Sliding Scale Insulin High-Med Dosing Condition: 150-199 mg/dl = 2 units Condition: 200-259 mg/dl = 4 units Condition: 260-324 mg/dl = 6 units Condition: 325-374 mg/dl = 8 units Condition: 375-409 mg/dl = 10 units Condition: 410-449 mg/dl = 11 units Condition: Greater than 449 call physician Protocol Text: - Use for Total Daily Dose of Insulin 56-80 units - Patient who are insulin resistant or septic HIGH MEDIUM DOSING ALGORITHM No Action (DME) Handicap Placard See Rx Instructions .Route .MEDSUPPLY Qty: 1 0RF Rx Instructions: Length of time: 5 years (DME) pen needle, diabetic [BD Sanaz 2nd Gen Pen Needle] 32 gauge x 5/32 needle See Rx Instructions .ROUTE .MEDSUPPLY Qty: 50 2RF Rx Instructions: use once daily to adminster insulin as directed. Referrals / Follow Up: Jennifer Watt MD [Primary Care Provider] - Disposition Disposition (needs filled in before D/C Order can be placed): Home, Self Care 04/22/221937 <Electronically signed by Johnathan Huffman MD> Cosigner Signature (if applicable): CC: Dr. Jennifer Watt MD; Dr. Johnathan Huffman MD~ Signed ADDENDUM by Dr. Johnathan Huffman MD on 04/23/22 at 1342 Addendum Fluid restriction 1500ML per day. 04/23/22 1343<Electronically signed by Johnathan Huffman MD> Cosigner Signature (if applicable): cc: Dr. Jennifer Watt MD; Dr. Johnathan Huffman MD ~* Signed [facility] Work Phone: 1(306) 192-932901-31-[address] Huffman [facility] April 13, 2022 2:56pm Note Date/Time April 13, 2022 2 :53pm [facility] Medical Records Department [address] [place] [address] Progress Note - Pharmacy 04/13/22 1427 MR#: [id number] Acct: [id number] Name: FRANCISCO THOMAS Rep #:[id number] : 1940 81 From: Amalia Somers PCP: Dr. Jennifer Watt MD Status:ADM IN Location: TCU TC4-1 TCU RX Drug Regimen Review Subjective: TCU Admission. 81 YOM presented to the ER with shortness of breath. Hospitalized for acute respiratory failure with hypoxia secondary to acute on chronic diastolic heart failure, complicated by acute kidney injury, iron deficiency anemia, left pleural effusion requiring thoracentesis. Admitted to TCU with debility for strengthening and rehabilitation. Objective: Allergies meloxicam [From Mobic] Allergy (Intermediate, Verified 04/05/22 12:08) itching pravastatin [From Pravachol] Adverse Reaction (Mild, Verified 04/05/22 12:08) myalgia cholestyramine Adverse Reaction (Verified 04/05/22 12:08) hypoglycemia Current Medications Generic Name Dose Route Start Last Admin Trade Name Freq PRN Reason Stop Dose Admin Acetaminophen 1,000 mg 04/12/22 14:38 Acetaminophen 500 Mg Tablet PO Q6H PRN PRN Pain Score 1-10 Albuterol Sulfate 2.5 mg 04/12/22 14:38 Albuterol 2.5 Mg/3 Ml Vial.Neb. INHALATION Q2H PRN PRN Dyspnea, wheezing Amlodipine Besylate 5 mg 04/13/22 06:00 04/13/22 05:38 Amlodipine 5 Mg Tablet PO 5 mg DAILY LJ Administration Aspirin 81 mg 04/13/22 08:00 04/13/22 08:14 Aspirin 81 Mg Tab.Chew PO 81 mg BREAKFAST LJ Administration Bisacodyl 10 mg 04/12/22 14:52 Bisacodyl 10 Mg Suppository RC DAILY PRN CONSTIPATION Carvedilol 25 mg 04/12/22 17:00 04/13/22 08:14 Carvedilol 25 Mg Tablet PO 25 mg BIDCM LJ Administration Clopidogrel Bisulfate 75 mg 04/13/22 06:00 04/13/22 05:38 Clopidogrel Bisulfate 75 Mg Tablet PO 75 mg DAILY LJ Administration Doxazosin Mesylate 8 mg 04/12/22 22:00 04/12/22 20:02 Doxazosin 4 Mg Tablet PO 8 mg QHS LJ Administration Ezetimibe 10 mg 04/12/22 22:00 04/12/22 20:03 Ezetimibe 10 Mg Tablet PO 10 mg QHS LJ Administration Ferrous Sulfate 325 mg 04/14/22 10:00 Ferrous Sulfate 325 Mg Tablet PO QODAY LJ Gabapentin 100 mg 04/12/22 18:00 04/13/22 05:37 Gabapentin 100 Mg Capsule PO 100 mg BID LJ Administration Gabapentin 300 mg 04/12/22 21:00 04/12/22 20:01 Gabapentin 300 Mg Capsule PO 300 mg 2100 LJ Administration Hydralazine HCl 75 mg 04/13/22 22:00 Hydralazine 50 Mg Tablet PO TID [facility] Hydrochlorothiazide 25 mg 04/13/22 06:00 04/13/22 05:38 Hydrochlorothiazide 25 Mg Tablet PO 25 mg DAILY [facility] Administration Insulin Glargine 18 unit 04/13/22 06:00 04/13/22 06:40 Insulin Glargine-Yfgn 100 Unit/Ml Pen SC 18 unit DAILY [facility] Administration Insulin Human Lispro 6 unit 04/13/22 06:45 04/13/22 13:12 Insulin Lispro 100 Unit/Ml Insuln.Pen SC 6 u TIDAC [facility] Administration Latanoprost 1 drp 04/12/22 22:00 04/12/22 20:03 Latanoprost 0.005% 1 Bottle EACH EYE 1 drp [facility] Administration Losartan Potassium 25 mg 04/13/22 06:00 04/13/22 05:38 Losartan Potassium 25 Mg Tablet PO 25 mg DAILY [facility] Administration Multivitamins/Minerals 1 tablet 04/13/22 06:00 04/13/22 05:38 Multivitamins,Ther W-Minerals Tablet PO 1 tablet DAILY [facility] Administration Polyethylene Glycol 17 gm 04/13/22 06:00 04/13/22 05:47 Polyethylene Glycol 3350 17 Gm Packet PO Not Given DAILY [facility] Pramipexole Dihydrochloride 0.125 mg 04/12/22 22:00 04/12/22 20:03 Pramipexole Di-Hcl 0.125 Mg Tablet PO 0.125 mg QHS [facility] Administration Senna/Docusate Sodium 2 tablet 04/12/22 14:38 Senna/Docusate Sodium 1 Tablet PO BID PRN PRN Constipation Sertraline HCl 50 mg 04/12/22 22:00 04/12/22 20:02 Sertraline 50 Mg Tablet PO 50 mg QHS [facility] Administration Sodium Chloride 10 - 40 ml 04/12/22 14:22 0.9% Saline Lock 10 Ml Syringe IV UD PRN SALINE FLUSH Spironolactone 50 mg 04/13/22 06:00 04/13/22 05:38 Spironolactone 50 Mg Tablet PO 50 mg DAILY [facility] Administration Tuberculin PPD 0.1 ml 04/20/22 10:00 Tuberculin,Purif.Prot.Deriv. 50 Tu/Ml Vial ID 04/20/22 10:01 X1 ONE Problem List (Last Reviewed 04/12/22 @ 19:[address] Johnathan Huffman MD) Depression (Acute) Restless leg syndrome (Acute) Glaucoma (Acute) Diabetes mellitus (Acute) Iron deficiency anemia (Acute) Hyperlipidemia (Acute) BPH (benign prostatic hyperplasia) (Acute) Stroke (Acute) Hypertension (Chronic) Chronic kidney disease, stage 3b (Acute) Pleural effusion, left (Acute) Acute kidney injury (Acute) Acute on chronic diastolic congestive heart failure (Chronic) Acute respiratory failure with hypoxia (Acute) Debility (Acute) Vital Signs Pulse Resp BP Pulse Ox O2 Del Method O2 Flow Rate 57 L 16 155/57 H 93 Nasal Cannula 2 04/13/22 05:37 04/12/22 14:12 04/13/22 05:37 04/12/22 22:13 04/13/22 10:00 04/13/22 11:29 Oxygen Flow Rate (L/min) 2 Oxygen Delivery Method Nasal Cannula Weight: 81.556 kg Body Mass Index (BMI) 24.5 Sodium 140 mmol/L (136-145) 04/13/22 05:27 Potassium 4.0 mmol/L (3.5-5.1) 04/13/22 05:27 Chloride 103 mmol/L (98-107) 04/13/22 05:27 Carbon Dioxide 29.0 mmol/L (21.0-32.0) 04/13/22 05:27 Anion Gap 8 (5-15) 04/13/22 05:27 BUN 50 mg/dL (7-18) H 04/13/22 05:27 Creatinine 1.75 mg/dL (0.70-1.30) H 04/13/22 05:27 Est GFR (MDRD) Af Amer 48 mL/min (>60) L 04/13/22 05:27 Est GFR (MDRD) Non-Af 40 mL/min (>60) L 04/13/22 05:27 BUN/Creatinine Ratio 28.6 RATIO (10-20) H 04/13/22 05:27 Glucose 148 mg/dL (74-106) H 04/13/22 05:27 Assessment/Plan: 1. Pain: acetaminophen 1000mg PO Q6H PRN pain 1-10. Please continue to monitor for increased pain and PRN usage. Resident has not used any doses so far. 2. Bowel: Miralax 17gm PO daily, senna/docusate 2T PO BID PRN constipation and bisacodyl 10mg RC daily PRN constipation. Resident has not had any doses so far.Please continue to monitor for constipation and PRN usage. Last documented bowelmovement 04/09. 3. Hypertension/CHF: carvedilol 25mg PO BIDCM, losartan 25mg PO daily, hydrochlorothiazide 25mg PO daily, amlodipine 5mg PO daily, hydralazine 75mg PO TID, spironolactone 50mg PO daily. Please continue to monitor BP (last 155/57), HR (last 57), potassium (last 4 mmol/L), renal function, swelling, sodium (last 140mmol/L), facial flushing. 4. Stroke: clopidogrel 75mg PO daily and aspirin 81mg PO breakfast. Please continue to monitor for S/S of bleeding/stroke and hemoglobin (last 8.1g/dL). 5. Hyperlipidemia: ezetimibe 10mg PO QHS. Please continue to monitor lipid panel(last 04/22/21). 6. Iron deficiency anemia: ferrous sulfate 325mg PO every other day. Please continue to monitor for constipation, dark stools and hemoglobin (last 8.1g/dL). 7. Shortness of breath: albuterol nebulized solution 2.5mg inhalation Q2H PRN dyspnea,wheezing. No doses needed so far. Please continue to monitor for PRN usage, SOB and dyspnea. 8. BPH: doxazosin 8mg PO QHS. Please continue to monitor BP and S/S of BPH. 9. Diabetes Mellitus II: insulin glargine 18units SC daily and insulin lispro 6units TIDAC. Please continue to monitor hemoglobin A1c (Last 6.4% 01/06/22), glucose (last 165mg/dL) and S/S of hypoglycemia. 10. Glaucoma: latanoprost 0.005% 1gtt OU QHS. Please continue to monitor for S/Sof glaucoma and dry eyes. 11. Restless leg syndrome: pramipexole 0.125mg PO QHS. Please continue to monitor for S/S of restless legs. 12. Nutrition: multivitamin with minerals 1T PO daily. Please continue to monitor. Assessment/Plan for indications treated with psychotropic medications: 1. Depression: sertraline 50mg PO QHS. Please see physician note regarding GDR. Please continue to monitor for suicidal ideation (black box warning), falls/fractures (BEERs criteria medication), sodium, and GI side effects. 2. Neuropathic pain: gabapentin 100mg PO BID and 300mg QHS. GDR not appropriate as this resident is using for neuropathic pain. Please continue to monitor for falls/fractures (BEERs medication), renal function and confusion. Medical chart and medication regimen reviewed. The following medication irregularities or issues were identified: None Date of Note:: 04/13/22 04/13/221452 <Electronically signed by Amalia Somers > Amalia Somers Cosigner Signature (if applicable): 04/13/221455 <Electronically signed by Johnathan Huffman MD> CC: ~ Signed [facility] Work Phone: 1(980) 306-142501-30-2023 History and physical note Author Dr. Huffman [facility] April 12, 2022 7:33pm Note Date/Time April 12, 2022 7 :21pm [facility] Medical Records Department [address] [place] [address] History & Physical Exam 04/12/221909 MR#: [id number] Acct: [id number] Name: FRANCISCO THOMAS Rep #:[id number] : 1940 81 From: Johnathan Huffman MD PCP: Dr. Jennifer Watt MD Status:ADM IN Location: [facility] TCU14-1 HPI - General General Date of Admission: 04/12/22 Date of Service: 04/12/22 Chief Complaint: Here for rehab. HPI Narrative 04/05/2022 FRANCISCO THOMAS, is a 81 Male who presents to [facility] Emergency Department with shortness of breath. Increasing shortness of breath for several days, chronic congestion. Swelling of legs. Lasix given for acute congestive heart failure, BNP 282. 04/05/2022 Admit to Hospital. Lasix 40mg IV bid, 1500cc fluid restriction for acute on chronic diastolic heart failure. Trend hemoglobin for Hemoglobin 8.6. Creatinine 1.76 baseline chronic kidney disease stage 3b. 04/06/[address] Lucero recommended continued diuresis, monitor renal function, consider left thoracentesis for left pleural effusion. Increase Amlodipine to 10mg daily for better blood pressure control. Consider pharmacologic stress test before discharge. 04/06/2022 Hemoglobin 7.7. 04/06/2022 Dr. Olivia noted creatinine changes secondary to ongoing events. 04/07/2022 Breathing better. Hold Plavix, Hold Lovenox, order left thoracentesis. Consider HCTZ or increasing Losartan for improved blood pressure control. Evaluate hemoglobin 7.5, no obvious bleeding. Decrease Lasix to 40mg IV daily secondary to elevated creatinine 1.95. 04/08/2022 Lovenox resumed, hold Plavix. IV iron x 1 dose. Creatinine 1.93, Bicarb 29. 04/09/2022 Left thoracentesis today, cancelled. IV iron x 1 dose. Hold IV Lasix for creatinine 2.1 04/10/2022 Left thoracentesis cancelled. Hemoglobin > 7. Creatinine 2.12. 04/12/2022 Left thoracentesis drained 1960ml kit fluid. 04/12/2022 Admit to TCU with debility, here for rehabilitation, strengthening, prior to discharge home with . [facility] Medical History Absent pedal pulses Acute left-sided muscle weakness Depression Dysphagia Essential hypertension Facial droop due to acute stroke History of CVA (cerebrovascular accident) (12/2020) Hydrocele in adult Hyperlipidemia Incontinence Limb weakness Normocytic normochromic anemia Osteoarthritis Peripheral vascular occlusive disease Pneumonia Proteinuria due to type 2 diabetes mellitus Recurrent inguinal hernia of right side without obstruction or gangrene Restless legs Right pontine CVA Right renal artery stenosis Skin lesion of face SOB (shortness of breath) Type 2 diabetes mellitus Unsteadiness Ventricular tachycardia seen on handtools repairer (02/20/21) Home Medications multivitamin,fw-drlm-ifbeqcar (Complete Multivitamin tablet) 1 tab PO QDAY supplement 03/03/17 [History Last Taken 02/23/22] aspirin 81 mg chewable tablet 81 mg PO BREAKFAST heart health 01/02/21 [History Last Taken 02/24/22] Handicap Placard #1 ea 02/12/21 [Rx Last Taken Unknown] pen needle, diabetic 32 gauge x 5/32 (BD Sanaz 2nd Gen Pen Needle) #50 ea 06/02/21 [Rx Last Taken Unknown] carvedilol 25 mg tablet 25 mg PO BID heart 02/24/22 [History Last Taken 02/24/22] clopidogrel 75 mg tablet (Plavix) 75 mg PO DAILY blood thinner 02/24/22 [History Last Taken 02/23/22] doxazosin 8 mg tablet 8 mg PO QHS bph 02/24/22 [History Last Taken 02/23/22] ezetimibe 10 mg tablet (Zetia) 10 mg PO QHS cholesterol 02/24/22 [History Last Taken 02/23/22] latanoprost 0.005 % eye drops 1 drp EACH EYE HS eyes 02/24/22 [History Last Taken 02/23/22] pramipexole 0.125 mg tablet 0.125 mg PO QHS parkinsons 02/24/22 [History Last Taken 02/23/22] sertraline 50 mg tablet 50 mg PO QHS mood 02/24/22 [History Last Taken 02/24/22] sennosides 8.6 mg-docusate sodium 50 mg tablet (Stool Softener-Stimulant Laxative) 2 tab PO BID PRN PRN Constipation #0 tabs 02/27/22 [Rx Last Taken Unknown] acetaminophen 500 mg tablet 1,000 mg PO Q6H PRN PRN Pain Score 1-10 #0 tabs 03/09/22 [Rx Last Taken Unknown] insulin lispro 100 unit/mL subcutaneous pen (Humalog KwikPen (U-100) Insulin) 6 unit subcut TIDAC PRN diabetes 03/17/22 [History Last Taken Unknown] gabapentin 100 mg capsule 100 mg PO BID pain #180 caps 03/18/22 [Rx Last Taken Unknown] gabapentin 300 mg capsule 300 mg PO 2100 pain #90 caps 03/18/22 [Rx Last Taken Unknown] hydrochlorothiazide 25 mg tablet 25 mg PO DAILY diuretic 04/05/22 [History Last Taken Unknown] albuterol sulfate 2.5 mg/3 mL (0.083 %) solution for nebulization 2.5 mg (3 mL) inhalation Q2H PRN PRN Dyspnea, wheezing #0 mL 04/12/22 [Rx Last Taken Unknown] amlodipine 5 mg tablet 5 mg PO DAILY BP 04/12/22 [History Last Taken Unknown] ferrous sulfate 325 mg (65 mg iron) tablet (FeroSul) 325 mg PO QODAY Supplement 04/12/22 [History Last Taken Unknown] hydralazine 25 mg tablet 75 mg PO TID BP 04/12/22 [History Last Taken Unknown] insulin glargine-yfgn 100 unit/mL (3 mL) subcutaneous pen 18 unit (0.18 mL) subcut DAILY diabetes #15 mL 04/12/22 [Rx Last Taken Unknown] insulin lispro 100 unit/mL subcutaneous pen (Humalog KwikPen (U-100) Insulin) 6 unit (0.06 mL) subcut TIDAC #15 mL 04/12/22 [Rx Last Taken Unknown] insulin lispro 100 unit/mL subcutaneous pen (Humalog KwikPen (U-100) Insulin) See Protocol subcut ACHS Blood sugar 04/12/22 [History Last Taken Unknown] losartan 25 mg tablet 25 mg PO DAILY BP 04/12/22 [History Last Taken Unknown] polyethylene glycol 3350 17 gram oral powder packet 17 g PO DAILY Stool softner 04/12/22 [History Last Taken Unknown] spironolactone 50 mg tablet 50 mg PO DAILY Water retention 04/12/22 [History Last Taken Unknown] Allergy/AdvReac Type Severity Reaction Status Date / Time meloxicam [From Mobic] Allergy Intermediate itching Verified 04/05/22 12:08 pravastatin [From Pravachol] AdvReac Mild myalgia Verified 04/05/22 12:08 cholestyramine AdvReac hypoglycemi Verified 04/05/22 12:08 a Family History Mother Hypertension Cancer Father Heart disease Diabetes Surgical History History of cataract surgery History of herniorrhaphy History of lumbar laminectomy History of stent insertion of renal artery (08/05/21) Status post laser cataract surgery of left eye Social History household members: spouse and other details: Abigail is his 's name housing: house number of children: 2 current occupational status: retired and other details: worked for [employer] prior to retiring leisure activities: other Smoking Status: Never smoker Electronic Cigarette Use: not used alcohol intake: former substance use type: does not use what type of physical activity do you participate in: walking frequency: 1-2 times per week ROS Constitutional Constitutional: Denies chills, fever(s) or weight gain ENT HEENT: Denies headache(s), nasal congestion or nasal discharge Cardiovascular Cardiovascular: Denies chest pain or palpitations Respiratory/Chest Respiratory/Chest: Denies cough, excessive phlegm production or shortness of breath with exertion Gastrointestinal Gastrointestinal: Denies abdominal pain, nausea or vomiting Genitourinary Genitourinary: Denies dysuria Musculoskeletal Musculoskeletal: Denies joint pain or joint swelling Integumentary Integumentary: Denies rash or wounds Neurologic Neurologic: Denies focal weakness, numbness or tingling Psychiatric Psychiatric: Denies anxiety, auditory hallucinations, depression, homicidal ideation or suicidal ideation Vital Signs Vital Signs Vital Signs: 04/12/22 14:12 04/12/22 14:12 Pulse Rate 59 L Pulse Rhythm Regular Pulse Strength Normal (2+) Respiratory Rate 16 16 Respiratory Effort Normal Non-Labored Respiratory Depth Normal Respiratory Pattern Normal Blood Pressure 145/55 H Blood Pressure Mean 85 Blood Pressure Source Monitor Blood Pressure Position Supine Blood Pressure Location Right Arm Pulse Ox 96 96 Oxygen Delivery Method Room Air Nasal Cannula Oxygen Flow Rate (L/min) 3 Weight Weight: 82.282 kg Body Mass Index (BMI) 24.5 Physical Exam Const alert General Appearance: cooperative HEENT normocephalic Eyes PERRL and EOMs intact bilaterally Neck supple, no JVD and no carotid bruits Resp normal respiratory effort, normal air movement and clear to auscultation bilaterally Cardio regular rate and regular rhythm GI normal to inspection, nondistended, normoactive bowel sounds, non-tender and non-distended Extremity normal capillary refill General Extremity: Negative for edema Skin no rashes or lesions noted General Skin Exam: no breakdown Psych affect normal Appearance: appropriate Results Lab / Micro Data Labs: Laboratory Results - last 24 hr 04/12/22 16:25: POC Glucose 280 H Assessment & Plan Assessment/Plan (1) Debility: (2) Acute respiratory failure with hypoxia: (3) Acute on chronic diastolic congestive heart failure: (4) Acute kidney injury: (5) Pleural effusion, left: (6) Chronic kidney disease, stage 3b: (7) Hypertension: (8) Stroke: (9) BPH (benign prostatic hyperplasia): (10) Hyperlipidemia: (11) Iron deficiency anemia: (12) Diabetes mellitus: (13) Glaucoma: (14) Restless leg syndrome: (15) Depression: PLAN: Plan 81 year old male with below past medical history hospitalized for acute respiratory failure with hypoxia secondary to acute on chronic diastolic heart failure, complicated by acute kidney injury, iron deficiency anemia, left pleural effusion requiring thoracentesis, admitted to TCU with debility, here for rehabilitation, strengthening, prior to discharge home with . * Debility - PT/OT. * Pain - Tylenol 1000mg q6h prn pain (1-10). * Bowel - Miralax 17gm daily, senna/colace 2 tablets bid prn, Dulcolax 10mg pr daily prn. * Adult immunization - Administer pneumonia vaccine, covid19 vaccine, flu vaccine. * DVT prophylaxis - Hold, on dual antiplatelet therapy. * Shortness of breath - Albuterol 2.5mg neb q2h prn. * Hypertension - Coreg 25mg bidcm, Losartan 25mg daily, HCTZ 25mg daily, Amlodipine 5mg daily, Hydralazine 75mg tid. * Stroke - Plavix 75mg daily, Aspirin 81mg daily. * Chronic diastolic heart failure - Coreg 25mg bidcm, Losartan 25mg daily, Hydralazine 75mg tid, Aldactone 50mg daily. * BPH - Doxazosin 8mg qhs. * Hyperlipidemia - Zetia 10mg qhs. * Iron deficiency anemia - Ferrous sulfate 325mg every other day. * Neuropathic pain - Gabapentin 100mg bid, 300mg qhs. * Diabetes Mellitus II - Glargine 18 units daily, Lispro 6 units tidac. * Glaucoma - Latanoprost 0.005% 1gtt ou qhs. * Nutrition - MVI daily. * Restless Leg syndrome - Mirapaex 0.125mg qhs. * Depression - Sertraline 50mg qhs, stable chronic nursing home use, GDR not recommended. 04/12/221932 <Electronically signed by Johnathan Huffman MD> Cosigner Signature (if applicable): CC: Dr. Jennifer Watt MD; Dr. Johnathan Huffman MD~ Signed [facility] Work Phone: 1(500) 940-244601-30-[address] Umanzor [facility] April 12, 2022 11:44am Note Date/Time April 12, 2022 1 1:32am [facility] Medical Records Department [address] [place] [address] Transfer to [facility] Care MR#: [id number] Acct: [id number] Name: FRANCISCO THOMAS Rep #:[id number] : 1940 81 From: Adiel Lee PCP: Dr. Jennifer Watt MD Status:ADM IN Certification of patient admission REQUIRED AT TIME OF ADMISSION. I CERTIFY THAT POST-HOSPITAL ECF SERVICES ARE REQUIRED TO BE GIVEN ON AN IN-PATIENT BASIS BECAUSE OF THE ABOVE NAMED PATIENT'S NEED FOR USP CARE ON A CONTINUING BASIS FOR THE CONDITION(S) FOR WHICH HE/SHE WAS RECEIVING IN-PATIENT HOSPITAL SERVICES PRIOR TO HIS/HER TRANSFER TO THE ECF. 04/12/22 1144<Electronically signed by Adiel Umanzor MD> Diet Diet Order/Speech Therapy: 04/05/22 18:03 Diet: Cardiac - Heart Healthy Routine Orders/Code Status Suppository Type: Dulcolax 10mg Suppository Frequency: Daily PRN Code Status: Full Code Therapies Weight Bearing: Weight bearing as tolerated Extremity Affected:: Bilateral Lower Physical Therapy: Eval and Treat Occupational Therapy: Eval and Treat Speech Therapy: Eval and Treat Problem/Diagnosis (1) Chronic kidney disease (CKD) stage G3a/A1, moderately decreased glomerular filtration rate (GFR) between 45-59 mL/min/1.73 square meter and albuminuria creatinine ratio less than 30 mg/g: Status: Chronic Code(s): N18.31 - Chronic kidney disease, stage 3a (2) Hypertension: Status: Chronic Code(s): I10 - Essential (primary) hypertension Plan This is 81-year-old gentleman who was admitted for shortness of breath for 2 weeks with no orthopnea or PND. No chest pain palpitation fever or chills. #Acute exacerbation of heart failure * Admitted to PCU 04/06: Repeat left decubitus chest x-ray ordered to look for drainable left pleural effusion.On Lasix 40 mg IV twice daily. Heart failure core measures including intake and output, fluid restriction less than 1500 mL, daily weight monitoring, kidney and electrolytes monitoring. The echo is ordered. EKG did not show acute change. Patient did not have chest pain or pressure therefore unlikely ACS. 04/07: Left decubitus chest x-ray reviewed. It is layered and looks moderate effusion therefore ultrasound-guided thoracocentesis ordered along with the analytical lab, cultures and cytology tests. Hold Plavix, Lovenox. Discussed with the nursing staff. 04/08: Lovenox resumed yesterday. Continue holding Plavix. Voice message left for Dr. Murrieta as cannot hold Plavix for 5 days 04/09: Schedule for left thoracocentesis today. I discussed with Dr. Biggs yesterday for procedure today. We will resume Plavix after 24 hours. 04/10: Order for left thoracentesis was discontinued by radiology no orders of unknown reason even though I talked to Dr. Murrieta as mentioned above. I talked to the patient yesterday evening when the nurse notified me about 5:20 PMand I informed and apologized to the patient. Next possible thoracocentesis will be on Tuesday. 04/11: Thoracocentesis with labs ordered for tomorrow AM. Hold Lovenox tomorrow AM. Plavix already on hold. 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 His blood pressure was 159/64 and heart rate 66 in ED. In the morning blood pressure normal. At one time in the past patient was on clonidine but probably high dose was given by mistake at home therefore patient was admitted with bradycardia, heart rate 30s. Kidney Doppler in 2021 shows stenosis of right-sided s/p renal angioplasty in July 2021. Follow-up renal Doppler did not show any stenosis. No suspicion for Conn syndrome as potassium is normal tonight. When creatinine stabilizes we will consider HCTZ or increasing the dose of losartan 04/07: Blood pressure is better controlled 135/53. Heart rate 72/min. 04/08: Blood pressure is baseline. 04/11: BP is controlled 122/58. #Normocytic normochromic anemia most likely due to CKD: Hb is 8.6. 04/06: Hemoglobin dropped to 7.7. Platelet count normal 275,000. 04/07: Hemoglobin further dropped to 7.5. MCV and RDW normal. Patient does nothave obvious GI bleed but stool for occult blood and comprehensive anemia work-up ordered. 04/08: Anemia work-up shows anemia of chronic kidney disease with low iron TIBC. Ferritin 166 iron saturation 6.7%. 1 dose IV iron ordered. 04/09: Hemoglobin low, 1 dose IV iron ordered. 04/10: Hemoglobin is above 7 for last several days. No acute bleeding. 04/11: Hemoglobin remains 7.6. Patient had 2 doses of IV iron and oral iron therapy. #CKD 3a: Cr is 1.76. This is around his baseline. eGFR is 40. On baseline, albumin creatinine ratio less than 30 mg/g. 04/06: Creatinine went up to 1.84, BUN 38. Enzyme Chemist consulted for CKD and hypertension diuretic management. Urine ordered for protein creatinine ratio. 04/07: Creatinine increased to 1.95. Lasix decreased to 40 mg IV daily and holdthe morning dose for proposed thoracocentesis. As per nursing staff patient hasto be 5 days of Plavix before thoracocentesis. 04/08: Creatinine is 1.93 similar to yesterday. Continue Lasix. Electrolytes are in normal range. Bicarb gradually increasing . 04/09: Creatinine 2.1. Patient is nonoliguric. Shortness of breath better and volume status is improved. Hold IV Lasix as recommended by manager corporate strategy. 04/10: Creatinine 2.12. 04/10: Creatinine 2.0. Continue current Lasix and Spironolactone #Type 2 diabetes mellitus: on lantus 14 units daily. ISS. Accuchecks ACHS. 04/02 glucose fluctuates between 112-206. In the morning it is 112 fasting. #Depression: on sertraline. DVT prophylaxis: lovenox Code status: full code Allergies/Procedures Done in Hospital Allergies meloxicam [From Mobic] Allergy (Intermediate, Verified 04/05/22 12:08) itching pravastatin [From Pravachol] Adverse Reaction (Mild, Verified 04/05/22 12:08) myalgia cholestyramine Adverse Reaction (Verified 04/05/22 12:08) hypoglycemia Type of Care/Length of Stay Estimated LOS: Convalescent Care Less Than 30 days Type of Care Needed: Skilled Rehab Potential: Good Prognosis: Good Additional Orders/Day of Discharge Day of Discharge: 04/12/22 Dietary and Speech Recommendations Dietitian Recommendations/Changes: continue cardiac diet w/ fluid restriction asindicated Discharge Plan Admission Admit Date/Time: 04/05/22 16:30 Primary Reason for Your Visit: Acute on chronic heart failure, left pleural effusion, CKD, severe anemia w Attending Provider: Adiel Umanzor Primary Care Provider: Jennifer Watt Consulting Providers: Jessica Meyer ; [place] ; Elham Olivia Instructions Patient Instructions: [place] RN Thoracentesis Dc Discharge Orders/Prescriptions Prescriptions: New ferrous sulfate [FeroSul] 325 mg (65 mg iron) Tablet 325 mg PO QODAY Qty: 0 0RF albuterol sulfate 2.5 mg /3 mL (0.083 %) Solution For Nebulization 2.5 mg inhalation Q2H PRN PRN (Reason: Dyspnea, wheezing) Qty: 0 0RF insulin lispro [Humalog KwikPen Insulin] 100 unit/mL Insulin Pen 6 unit subcut TIDAC Qty: 15 0RF insulin lispro [Humalog KwikPen Insulin] 100 unit/mL Insulin Pen See Protocol subcut ACHS Qty: 0 0RF Protocol: 4. Sliding Scale Insulin High-Med Dosing Condition: 150-199 mg/dl = 2 units Condition: 200-259 mg/dl = 4 units Condition: 260-324 mg/dl = 6 units Condition: 325-374 mg/dl = 8 units Condition: 375-409 mg/dl = 10 units Condition: 410-449 mg/dl = 11 units Condition: Greater than 449 call physician Protocol Text: - Use for Total Daily Dose of Insulin 56-80 units - Patient who are insulin resistant or septic HIGH MEDIUM DOSING ALGORITHM polyethylene glycol 3350 17 gram Powder In Packet 17 g PO DAILY Qty: 0 0RF spironolactone 50 mg Tablet 50 mg PO DAILY Qty: 0 0RF Continued multivitamin,xy-igum-aivtsfoj tablet tablet 1 tab PO QDAY insulin lispro [Humalog KwikPen Insulin] 100 unit/mL insulin pen 5 unit subcut TIDAC PRN (Reason: diabetes) Label Comments: if bs over 130 hydrochlorothiazide 25 mg tablet 25 mg PO DAILY aspirin 81 mg tablet,chewable 81 mg PO BREAKFAST latanoprost 0.005 % drops 1 drp EACH EYE HS carvedilol 25 mg tablet 25 mg PO BID Rx Instructions: must administer with a meal/food clopidogrel [Plavix] 75 mg tablet 75 mg PO DAILY doxazosin 8 mg tablet 8 mg PO QHS pramipexole 0.125 mg tablet 0.125 mg PO QHS sertraline 50 mg tablet 50 mg PO QHS ezetimibe [Zetia] 10 mg tablet 10 mg PO QHS Rx Instructions: take at bedtime sennosides-docusate sodium [Stool Softener-Stimulant Laxat] 8.6-50 mg Tablet 2 tab PO BID PRN PRN (Reason: Constipation) Qty: 0 0RF amlodipine 5 mg Tablet 5 mg PO DAILY 30 Days Qty: 30 0RF acetaminophen 500 mg Tablet 1,000 mg PO Q6H PRN PRN (Reason: Pain Score 1-10) Qty: 0 0RF (DME) Handicap Placard See Rx Instructions .Route .MEDSUPPLY Qty: 1 0RF Rx Instructions: Length of time: 5 years (DME) pen needle, diabetic [BD Sanaz 2nd Gen Pen Needle] 32 gauge x 5/32 needle See Rx Instructions .ROUTE .MEDSUPPLY Qty: 50 2RF Rx Instructions: use once daily to adminster insulin as directed. gabapentin 100 mg capsule 100 mg PO BID Qty: 180 3RF gabapentin 300 mg capsule 300 mg PO 2100 Qty: 90 3RF losartan 25 mg tablet 25 mg PO DAILY 30 Days Qty: 90 3RF hydralazine 25 mg tablet 75 mg PO TID 30 Days Qty: 270 3RF Changed insulin glargine-yfgn 100 unit/mL (3 mL) insulin pen 18 unit subcut DAILY Qty: 15 0RF Discontinued ferrous sulfate 325 mg (65 mg iron) Capsule, Extended Release 65 mg PO DAILY Referrals / Follow Up: Jennifer Watt MD [Primary Care Provider] - Disposition Disposition (needs filled in before D/C Order can be placed): [facility] 04/12/22 1144 <Electronically signed by Adiel Umanozr MD> Cosigner Signature (if applicable): CC: Dr. [place] MD; Dr. Elham Olivia MD; Dr. Jennifer Watt MD; Dr.Nana Liv Meyer MD ~ [facility] Work Phone: [phone]) 337-275001-30-[address] Umanzor [facility] April 12, 2022 11:58am Note Date/Time April 12, 2022 1 1:56am [facility] Medical Records Department [address] [place] [address] Discharge Summary 04/12/22 1144 MR#: [id number] Acct: [id number] Name: FRANCISCO THOMAS Rep #:[id number] : 1940 81 From: Adiel Lee PCP: Dr. Jennifer Watt MD Status:ADM IN Location: [place] [address] Providers Date of Admission: 04/05/22 Date of Discharge: 04/12/22 Primary Care Physician: Dr. Jennifer Watt MD Consultations 04/05/22 18:36 Consult: Cardiology Routine Consulting Provider: [place] Reason for Consult: acute heart failure EMERGENT Consult: No Notified: Yes Date Notified: 04/05/22 Time Notified: 18:39 Method of Notification: Verbal 04/06/22 10:39 Consult: Nephrology Routine Consulting Provider: Elham Olivia Reason for Consult: NABILA on CKD, HTN EMERGENT Consult: No Notified: Yes Date Notified: 04/06/22 Time Notified: 10:39 Method of Notification: Verbal Reason For Visit: CHF, LEFT PLEURAL EFFUSION, CHRONIC KIDNEY DISEASE Diagnosis Discharge Diagnosis (1) Chronic kidney disease (CKD) stage G3a/A1, moderately decreased glomerular filtration rate (GFR) between 45-59 mL/min/1.73 square meter and albuminuria creatinine ratio less than 30 mg/g: Status: Chronic Code(s): N18.31 - Chronic kidney disease, stage 3a (2) Hypertension: Status: Chronic Code(s): I10 - Essential (primary) hypertension Plan This is 81-year-old gentleman who was admitted for shortness of breath for 2 weeks with no orthopnea or PND. He was found to have left moderate pleural effusion which required thoracocentesis, severe anemia, chronic kidney disease and debility due to previous stroke. No chest pain palpitation fever or chills. #Acute exacerbation of heart failure * Admitted to PCU 04/06: Repeat left decubitus chest x-ray ordered to look for drainable left pleural effusion.On Lasix 40 mg IV twice daily. Heart failure core measures including intake and output, fluid restriction less than 1500 mL, daily weight monitoring, kidney and electrolytes monitoring. The echo is ordered. EKG did not show acute change. Patient did not have chest pain or pressure therefore unlikely ACS. 04/07: Left decubitus chest x-ray reviewed. It is layered and looks moderate effusion therefore ultrasound-guided thoracocentesis ordered along with the analytical lab, cultures and cytology tests. Hold Plavix, Lovenox. Discussed with the nursing staff. 04/08: Lovenox resumed yesterday. Continue holding Plavix. Voice message left for Dr. Murrieta as cannot hold Plavix for 5 days 04/09: Schedule for left thoracocentesis today. I discussed with Dr. Biggs yesterday for procedure today. We will resume Plavix after 24 hours. 04/10: Order for left thoracentesis was discontinued by radiology no orders of unknown reason even though I talked to Dr. Murrieta as mentioned above. I talked to the patient yesterday evening when the nurse notified me about 5:20 PMand I informed and apologized to the patient. Next possible thoracocentesis will be on Tuesday. 04/11: Thoracocentesis with labs ordered for tomorrow AM. Hold Lovenox tomorrow AM. Plavix already on hold. 04/12: Thoracocentesis was done. Fluid analysis although as per lights criteria is exaggerated but patient got Lasix therefore fluid total protein is falsely elevated but it is transudate as patient has mainly mononuclear cells 79% and fluid LDH and serum LDH are normal. 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 His blood pressure was 159/64 and heart rate 66 in ED. In the morning blood pressure normal. At one time in the past patient was on clonidine but probably high dose was given by mistake at home therefore patient was admitted with bradycardia, heart rate 30s. Kidney Doppler in 2021 shows stenosis of right-sided s/p renal angioplasty in July 2021. Follow-up renal Doppler did not show any stenosis. No suspicion for Conn syndrome as potassium is normal tonight. When creatinine stabilizes we will consider HCTZ or increasing the dose of losartan 04/07: Blood pressure is better controlled 135/53. Heart rate 72/min. 04/08: Blood pressure is baseline. 04/11: BP is controlled 122/58. 04/12: Blood pressure is reasonably controlled. #Normocytic normochromic anemia most likely due to CKD: Hb is 8.6. 04/06: Hemoglobin dropped to 7.7. Platelet count normal 275,000. 04/07: Hemoglobin further dropped to 7.5. MCV and RDW normal. Patient does nothave obvious GI bleed but stool for occult blood and comprehensive anemia work-up ordered. 04/08: Anemia work-up shows anemia of chronic kidney disease with low iron TIBC. Ferritin 166 iron saturation 6.7%. 1 dose IV iron ordered. 04/09: Hemoglobin low, 1 dose IV iron ordered. 04/10: Hemoglobin is above 7 for last several days. No acute bleeding. 04/11: Hemoglobin remains 7.6. Patient had 2 doses of IV iron and oral iron therapy. 04/12: Hemoglobin is 8.3. Resume Plavix. Continue oral ferrous sulfate once every other day. #CKD 3a: Cr is 1.76. This is around his baseline. eGFR is 40. On baseline, albumin creatinine ratio less than 30 mg/g. 04/06: Creatinine went up to 1.84, BUN 38. Enzyme Chemist consulted for CKD and hypertension diuretic management. Urine ordered for protein creatinine ratio. 04/07: Creatinine increased to 1.95. Lasix decreased to 40 mg IV daily and holdthe morning dose for proposed thoracocentesis. As per nursing staff patient hasto be 5 days of Plavix before thoracocentesis. 04/08: Creatinine is 1.93 similar to yesterday. Continue Lasix. Electrolytes are in normal range. Bicarb gradually increasing 29. 04/09: Creatinine 2.1. Patient is nonoliguric. Shortness of breath better and volume status is improved. Hold IV Lasix as recommended by manager corporate strategy. 04/10: Creatinine 2.12. 04/10: Creatinine 2.0. Continue current Lasix and Spironolactone 04/12: Creatinine 1.92. Discussed with the manager corporate strategy. Patient is discharged on HCTZ his home medication and his spironolactone. #Type 2 diabetes mellitus: on lantus 14 units daily. ISS. Accuchecks ACHS. 04/05 glucose fluctuates between 112-206. In the morning it is 112 fasting. 04/12: Glucose is elevated therefore dose of Lantus increased. Continue Humalog insulin along with sliding scale in TCU. #Depression: on sertraline. DVT prophylaxis: lovenox Code status: full code Process of thoracocentesis and fluid analysis discussed with the patient and hiswife. Labs imaging and hospital course discussed with the patient and his . Patient can be transferred/discharged to TCU Discharge medication reconciliation done. Discharge follow-up instructions completed. Discharge process discussed with the patient and all questions wereanswered to patient's satisfaction. Total time spent, exact 35 minutes on discharge meds reconciliation, examination, coordination of care with nurses and ancillary staff, review of imaging and blood test and discussion with the patient on follow-up instructions. Medications at Discharge Home Medications multivitamin,vp-huwn-ijjwpfin (Complete Multivitamin tablet) 1 tab PO QDAY supplement 03/03/17 aspirin 81 mg chewable tablet 81 mg PO BREAKFAST heart health 01/02/21 Handicap Placard #1 ea 02/12/21 pen needle, diabetic 32 gauge x 5/32 (BD Sanaz 2nd Gen Pen Needle) #50 ea 06/02/21 carvedilol 25 mg tablet 25 mg PO BID heart 02/24/22 clopidogrel 75 mg tablet (Plavix) 75 mg PO DAILY blood thinner 02/24/22 doxazosin 8 mg tablet 8 mg PO QHS bph 02/24/22 ezetimibe 10 mg tablet (Zetia) 10 mg PO QHS cholesterol 02/24/22 latanoprost 0.005 % eye drops 1 drp EACH EYE HS eyes 02/24/22 pramipexole 0.125 mg tablet 0.125 mg PO QHS parkinsons 02/24/22 sertraline 50 mg tablet 50 mg PO QHS mood 12/14/22 sennosides 8.6 mg-docusate sodium 50 mg tablet (Stool Softener-Stimulant Laxative) 2 tab PO BID PRN PRN Constipation #0 tabs 02/27/22 acetaminophen 500 mg tablet 1,000 mg PO Q6H PRN PRN Pain Score 1-10 #0 tabs 03/09/22 amlodipine 5 mg tablet 5 mg PO DAILY 30 days #30 tabs 03/09/22 insulin lispro 100 unit/mL subcutaneous pen (Humalog KwikPen (U-100) Insulin) 5 unit subcut TIDAC PRN diabetes 03/17/22 gabapentin 100 mg capsule 100 mg PO BID pain #180 caps 03/18/22 gabapentin 300 mg capsule 300 mg PO 2100 pain #90 caps 03/18/22 losartan 25 mg tablet 25 mg PO DAILY 30 days #90 tabs 03/18/22 hydralazine 25 mg tablet 75 mg PO TID 30 days #270 tabs 03/25/22 hydrochlorothiazide 25 mg tablet 25 mg PO DAILY diuretic 04/05/22 albuterol sulfate 2.5 mg/3 mL (0.083 %) solution for nebulization 2.5 mg (3 mL) inhalation Q2H PRN PRN Dyspnea, wheezing #0 mL 04/12/22 ferrous sulfate 325 mg (65 mg iron) tablet (FeroSul) 325 mg PO QODAY #0 tabs 04/12/22 insulin glargine-yfgn 100 unit/mL (3 mL) subcutaneous pen 18 unit (0.18 mL) subcut DAILY diabetes #15 mL 04/12/22 insulin lispro 100 unit/mL subcutaneous pen (Humalog KwikPen (U-100) Insulin) 6 unit (0.06 mL) subcut TIDAC #15 mL 04/12/22 insulin lispro 100 unit/mL subcutaneous pen (Humalog KwikPen (U-100) Insulin) See Protocol subcut ACHS #0 mL 04/12/22 polyethylene glycol 3350 17 gram oral powder packet 17 g PO DAILY #0 ea 04/12/22 spironolactone 50 mg tablet 50 mg PO DAILY #0 tabs 04/12/22 Physical Exam Narrative Seen and examined. No chest pain. Shortness of breath is better. Patient had thoracocentesis earlier in the morning around 8:00. Physical exam General: Mild lethargy after thoracocentesis with patient is awake. Oriented x3, Cooperative HEENT: Atraumatic, PERRLA, EOMI, Normocephalic Oral: Oral mucosa moist. No Gingival or Mucosal Lesions/ Ulcerations Neck: Supple, No JVD, Negative Carotid Bruits Lungs: Air entry diminished more in the left lung base, left pleural effusion. No crepitation/rhonchi. On 3 L of oxygen. No tachypnea Cardiovascular: Sinus rhythm normal S1, Normal S2, systolic murmur over LLSB andcardiac apex Abdomen: Bowel Sounds Present, Soft, Non Tender, Non-Distended : No renal angle tenderness. No suprapubic tenderness. Extremities: Bilateral pedal pitting edema, 1+. Capillary Refill Less than 3 Seconds Skin: No rashes, No breakdown Musculoskeletal: No Tenderness to Palpation of Joints or Extremities, ROM increased of left lower extremity after stroke. Muscle strength 4+/5 of LLE, 3/5 LUE Neurological: Cranial nerves II-XII grossly intact, DTR 2+/4 and Symmetrical, chronic left upper extremity weakness Psych/Mental Status: Normal Affect, Appropriate. Weight / BMI Weight Weight: 189 lb 6.033 oz Body Mass Index (BMI) 25.6 ABG / Lab / Microbiology Data Result Diagrams: 04/12/22 05:34 04/12/22 05:34 Laboratory: Laboratory Results - last 24 hr 04/10/22 08:00: Fluid Glucose 150 H, Fluid Total Protein 3.9, Fluid LDH 128 04/11/22 15:58: POC Glucose 139 H 04/11/22 21:50: POC Glucose 210 H 04/12/22 05:34: Sodium 138, Potassium 3.8, Chloride 102, Carbon Dioxide 29.0, Anion Gap 7, BUN 58 H, Creatinine 1.92 H, Estim Creat Clear Calc 32.56, Est GFR (MDRD) Af Amer 43 L, Est GFR (MDRD) Non-Af 36 L, BUN/Creatinine Ratio 30.2 H, Glucose 134 H, Calcium 8.8, Total Bilirubin 0.30, Direct Bilirubin 0.10, AST 11 L, ALT 14 L, Alkaline Phosphatase 51, Lactate Dehydrogenase 113, Total Protein 6.2 L, Albumin 2.5 L, Globulin 3.7 04/12/22 05:34: WBC 9.0, RBC 2.97 L, Hgb 8.3 L, Hct 27.0 L, MCV 90.9, MCH 27.9, MCHC 30.7 L, RDW Std Deviation 47.3 H, RDW Coeff of Cait 14.4, Plt Count 369, MPV10.8, Immature Gran % (Auto) 0.700, Neut % (Auto) 64.0, Lymph % (Auto) 13.4 L, [place] % (Auto) 13.8 H, Eos % (Auto) 7.3 H, Baso % (Auto) 0.8, Absolute Neuts (auto) 5.7, Absolute Lymphs (auto) 1.20, Nucleated RBC % 0 04/12/22 05:34: Lactate Dehydrogenase Cancelled, Total Protein Cancelled, Globulin Cancelled, Albumin/Globulin Ratio Cancelled 04/12/22 07:35: POC Glucose 147 H 04/12/22 08:00: Fluid Source THORACENTESIS, Fluid Color YELLOW, Fluid AppearanceSL CLDY, Fluid WBC 0.777, Fluid RBC 0.005, Fluid Tot Cell Count 0.847, Fld Polynuclear WBCs # 0.169, Fld Polynuclear WBCs % 21.7, Fluid Mononuclear WBCs 0.608, Fld Mononuclear WBCs % 78.3, Fluid Neutrophils 18, Fluid Lymphocytes 37, Fluid Monocytes 9, Fld Mesothelial Cells 3, Fluid Other Cells 33, Fl PathologistComment May follow, Fluid Comment 2 SEE COMMENT Microbiology: Microbiology 04/10/22 11:55 Stool Stool Occult Blood (DAX) - Final Radiography Diagnostic Testing: Radiology Impression Chest X-Ray 04/12/22 08:10 IMPRESSION: Status post left thoracentesis. No evidence of pneumothorax. Electronically Signed: Micah Murrieta MD at 8:26 EST , Thoracentesis Ultrasound 04/12/22 08:10 IMPRESSION: Ultrasound-guided left thoracentesis. Electronically Signed: Micah Murrieta MD at 8:43 EST , Meaningful Use Info Meaningful Use Diagnoses (Choose all that apply): None applicable and CHF CHF ALVIN/ARB ordered at discharge?: Yes Documented LVEF (%): 65 Discharge Plan Admission Admit Date/Time: 04/05/22 16:30 Primary Reason for Your Visit: Acute on chronic heart failure, left pleural effusion, CKD, severe anemia w Attending Provider: Adiel Umanzor Primary Care Provider: Jennifer Watt Consulting Providers: Jessica Meyer ; [place] ; Elham Olivia Instructions Patient Instructions: [place] RN Thoracentesis Dc Discharge Orders/Prescriptions Prescriptions: New ferrous sulfate [FeroSul] 325 mg (65 mg iron) Tablet 325 mg PO QODAY Qty: 0 0RF albuterol sulfate 2.5 mg /3 mL (0.083 %) Solution For Nebulization 2.5 mg inhalation Q2H PRN PRN (Reason: Dyspnea, wheezing) Qty: 0 0RF insulin lispro [Humalog KwikPen Insulin] 100 unit/mL Insulin Pen 6 unit subcut TIDAC Qty: 15 0RF insulin lispro [Humalog KwikPen Insulin] 100 unit/mL Insulin Pen See Protocol subcut ACHS Qty: 0 0RF Protocol: 4. Sliding Scale Insulin High-Med Dosing Condition: 150-199 mg/dl = 2 units Condition: 200-259 mg/dl = 4 units Condition: 260-324 mg/dl = 6 units Condition: 325-374 mg/dl = 8 units Condition: 375-409 mg/dl = 10 units Condition: 410-449 mg/dl = 11 units Condition: Greater than 449 call physician Protocol Text: - Use for Total Daily Dose of Insulin 56-80 units - Patient who are insulin resistant or septic HIGH MEDIUM DOSING ALGORITHM polyethylene glycol 3350 17 gram Powder In Packet 17 g PO DAILY Qty: 0 0RF spironolactone 50 mg Tablet 50 mg PO DAILY Qty: 0 0RF Continued multivitamin,nw-etdj-wahmxkic tablet tablet 1 tab PO QDAY insulin lispro [Humalog KwikPen Insulin] 100 unit/mL insulin pen 5 unit subcut TIDAC PRN (Reason: diabetes) Label Comments: if bs over 130 hydrochlorothiazide 25 mg tablet 25 mg PO DAILY aspirin 81 mg tablet,chewable 81 mg PO BREAKFAST latanoprost 0.005 % drops 1 drp EACH EYE HS carvedilol 25 mg tablet 25 mg PO BID Rx Instructions: must administer with a meal/food clopidogrel [Plavix] 75 mg tablet 75 mg PO DAILY doxazosin 8 mg tablet 8 mg PO QHS pramipexole 0.125 mg tablet 0.125 mg PO QHS sertraline 50 mg tablet 50 mg PO QHS ezetimibe [Zetia] 10 mg tablet 10 mg PO QHS Rx Instructions: take at bedtime sennosides-docusate sodium [Stool Softener-Stimulant Laxat] 8.6-50 mg Tablet 2 tab PO BID PRN PRN (Reason: Constipation) Qty: 0 0RF amlodipine 5 mg Tablet 5 mg PO DAILY 30 Days Qty: 30 0RF acetaminophen 500 mg Tablet 1,000 mg PO Q6H PRN PRN (Reason: Pain Score 1-10) Qty: 0 0RF (DME) Handicap Placard See Rx Instructions .Route .MEDSUPPLY Qty: 1 0RF Rx Instructions: Length of time: 5 years (DME) pen needle, diabetic [BD Sanaz 2nd Gen Pen Needle] 32 gauge x 5/32 needle See Rx Instructions .ROUTE .MEDSUPPLY Qty: 50 2RF Rx Instructions: use once daily to adminster insulin as directed. gabapentin 100 mg capsule 100 mg PO BID Qty: 180 3RF gabapentin 300 mg capsule 300 mg PO 2100 Qty: 90 3RF losartan 25 mg tablet 25 mg PO DAILY 30 Days Qty: 90 3RF hydralazine 25 mg tablet 75 mg PO TID 30 Days Qty: 270 3RF Changed insulin glargine-yfgn 100 unit/mL (3 mL) insulin pen 18 unit subcut DAILY Qty: 15 0RF Discontinued ferrous sulfate 325 mg (65 mg iron) Capsule, Extended Release 65 mg PO DAILY Referrals / Follow Up: Jennifer Watt MD [Primary Care Provider] - Disposition Disposition (needs filled in before D/C Order can be placed): [facility] Facility Charges/Coding Visit Charges Inpatient E&M: 38884 Disch Hosp >30min 04/12/22 1156 <Electronically signed by Adiel Umanzor MD> Cosigner Signature (if applicable): CC: Dr. Jennifer Watt MD; Dr. Adiel Umanzor MD~ Signed ADDENDUM by Dr. Adiel Umanzor MD on 04/12/22 at 1158 Addendum Patient had recently echo in February 2022 reported EF 65% with LA mildly enlarged mild MR mild TR, mild with pulmonary hypertension, RVSP 55 mmHg. Stage II diastolic dysfunction Overall assessment, acute on chronic HFpEF with moderate pulmonary hypertension 04/12/22 1158<Electronically signed by Adiel Umanzor MD> Cosigner Signature (if applicable): cc: Dr. Jennifer Watt MD; Dr. Adiel Umanzor MD ~* Signed [facility] Work Phone: [phone] 419-835101-29-[address] Ruffin [facility] April 11, 2022 8:30pm Note Date/Time April 11, 2022 8 :30pm [facility] Medical Records Department [address] [place] [address] Progress Note - Nephrology 04/11/222027 MR#: [id number] Acct: [id number] Name: FRANCISCO THOMAS Rep #:[id number] : 1940 81 From: Carmela bhakta MD PCP: Dr. Jennifer Watt MD Status:ADM IN Location: [place] [address] Subjective Subjective Following for NABILA on CKD. The patient denies chest pain or shortness of breath at rest. There is no nausea or vomiting. Appetite is still marginal. Objective Data Objective Data Vital Signs: Vital Signs Temp Pulse Resp BP Pulse Ox O2 Del Method O2 Flow Rate 97.9 F 50 L 18 135/57 H 97 Nasal Cannula 3 04/11/22 15:30 04/11/22 15:30 04/11/22 15:30 04/11/22 15:30 04/11/22 15:30 04/11/22 15:30 04/11/22 15:30 FiO2 4 04/06/22 22:10 Oxygen Flow Rate (L/min) 3 Oxygen Delivery Method Nasal Cannula Weight: 85.9 kg Body Mass Index (BMI) 25.6 Intake & Output: Intake and Output for Last 24 Hours 04/09/22 04/10/22 04/11/22 23:59 23:59 23:59 Intake Total 950 / 950 360 / 385 890 / 890 Output Total 200 / 300 700 / 1100 1500 / 1500 Balance 750 / 650 -340 / -715 -610 / -610 Lab / Micro Data Result Diagrams: 04/11/22 06:00 04/11/22 06:00 Labs: Laboratory Results - last 24 hr 04/10/22 21:07: POC Glucose 181 H 04/11/22 06:00: Sodium 141, Potassium 3.7, Chloride 103, Carbon Dioxide 32.0, Anion Gap 6, BUN 56 H, Creatinine 2.00 H, Estim Creat Clear Calc 31.26, Est GFR (MDRD) Af Amer 41 L, Est GFR (MDRD) Non-Af 34 L, BUN/Creatinine Ratio 28.0 H, Glucose 122 H, Calcium 8.8 04/11/22 06:00: WBC 8.3, RBC 2.62 L, Hgb 7.6 L, Hct 23.5 L, MCV 89.7, MCH 29.0, MCHC 32.3, RDW Std Deviation 46.7 H, RDW Coeff of Cait 14.3, Plt Count 339, MPV 10.3, Immature Gran % (Auto) 0.500, Neut % (Auto) 64.2, Lymph % (Auto) 14.0 L, [place] % (Auto) 12.1 H, Eos % (Auto) 8.4 H, Baso % (Auto) 0.8, Absolute Neuts (auto) 5.3, Absolute Lymphs (auto) 1.16, Nucleated RBC % 0 04/11/22 07:40: POC Glucose 131 H 04/11/22 11:07: POC Glucose 233 H 04/11/22 15:58: POC Glucose 139 H Micro: Microbiology 04/10/22 11:55 Stool Stool Occult Blood (DAX) - Final Physical Exam Narrative Alert, awake, oriented x 3. sitting in chair at bedside no JVD Normal s1s2 no murmurs lungs sounds clear anteriorly abdomen soft Trace edema bilateral lower legs Assessment & Plan Assessment/Plan (1) Chronic kidney disease (CKD) stage G3a/A1, moderately decreased glomerular filtration rate (GFR) between 45-59 mL/min/1.73 square meter and albuminuria creatinine ratio less than 30 mg/g: (2) Hypertension: PLAN: Plan Impression/Plan: The patient is a 81-year-old man with past history of type 2 diabetes mellitus, hypertension, stroke, CAD, heart failure with preserved ejection fraction, and hyperlipidemia. The patient was admitted to the hospital on 04/05/2022 with acute exacerbation of heart failure with preserved ejection fraction. Nephrology is following for NABILA on CKD. Acute kidney injury on chronic kidney disease stage IIIa. Baseline serum creatinine is around 1.7-1.8 mg/dL. Renal function is stable in the last 24 hours. Serum creatinine was 2.09 mg/dL yesterday and is 2.00 mg/dL today. Patient is nonoliguric and volume status has improved. Okay from nephrology standpoint to diurese if needed. He was started on furosemide 40 mg IV today-agree. 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 The patient should follow-up with us in 3 to 4 weeks after discharge. Hypertension. Renal Doppler from beginning of 2021 showed stenosis on the right side, s/p renal angioplasty on the right side in July 2021. Follow-up renal Doppler did not show any stenosis. Currently, he is on losartan 25 mg once a day, amlodipine 5 mg once a day, carvedilol 25 mg twice a day, hydralazine 75 mg 3 times a day, spironolactone 50mg once a day, and doxazosin 8 mg nightly. He was prescribed clonidine in the past, but he developed bradycardia. BP is reasonably controlled on current medical regimen. We will continue to monitor BP. 04/11/222029 <Electronically signed by Carmela Ruffin MD> Cosigner Signature (if applicable): CC: ~ Signed [facility] Work Phone: [phone] Umanzor [facility] April 11, 2022 12:36pm Note Date/Time April 11, 2022 9 :30am [facility] Medical Records Department [address] [place] [address] Progress Note - Hospitalist 04/11/2228 MR#: [id number] Acct: [id number] Name: FRANCISCO THOMAS Rep #:[id number] : 1940 81 From: Adiel Lee PCP: Dr. Jennifer Shukri, MD Status:ADM IN Location: [facility] [id number] Objective Data Objective Data Vital Signs: Vital Signs Temp Pulse Resp BP Pulse Ox O2 Del Method O2 Flow Rate 97.6 F L 56 L 16 148/61 H 96 Venturi Mask 2 04/11/22 03:29 04/11/22 06:07 04/11/22 03:29 04/11/22 06:07 04/11/22 03:29 04/11/22 07:45 04/11/22 07:45 FiO2 4 04/06/22 22:10 Oxygen Flow Rate (L/min) 2 Oxygen Delivery Method Venturi Mask Weight: 189 lb 6.033 oz Body Mass Index (BMI) 25.6 Intake & Output: Intake and Output for Last 24 Hours 04/09/22 04/10/22 04/11/22 23:59 23:59 23:59 Intake Total 950 / 950 360 / 385 50 / 50 Output Total 200 / 300 700 / 1100 800 / 800 Balance 750 / 650 -340 / -715 -750 / -750 Lab / Micro Data Result Diagrams: 04/11/22 06:00 04/11/22 06:00 Labs: Laboratory Results - last 24 hr 04/10/22 11:00: POC Glucose 206 H 04/10/22 16:18: POC Glucose 190 H 04/10/22 21:07: POC Glucose 181 H 04/11/22 06:00: Sodium 141, Potassium 3.7, Chloride 103, Carbon Dioxide 32.0, Anion Gap 6, BUN 56 H, Creatinine 2.00 H, Estim Creat Clear Calc 31.26, Est GFR (MDRD) Af Amer 41 L, Est GFR (MDRD) Non-Af 34 L, BUN/Creatinine Ratio 28.0 H, Glucose 122 H, Calcium 8.8 04/11/22 06:00: WBC 8.3, RBC 2.62 L, Hgb 7.6 L, Hct 23.5 L, MCV 89.7, MCH 29.0, MCHC 32.3, RDW Std Deviation 46.7 H, RDW Coeff of Cait 14.3, Plt Count 339, MPV 10.3, Immature Gran % (Auto) 0.500, Neut % (Auto) 64.2, Lymph % (Auto) 14.0 L, [place] % (Auto) 12.1 H, Eos % (Auto) 8.4 H, Baso % (Auto) 0.8, Absolute Neuts (auto) 5.3, Absolute Lymphs (auto) 1.16, Nucleated RBC % 0 04/11/22 07:40: POC Glucose 131 H Micro: Microbiology 04/10/22 11:55 Stool Stool Occult Blood (DAX) - Final Physical Exam Narrative Seen and examined. No chest pain. Shortness of breath is better. Patient walking with PT on side Physical exam General: Alert, Oriented x3, Cooperative HEENT: Atraumatic, PERRLA, EOMI, Normocephalic Oral: Oral mucosa moist. No Gingival or Mucosal Lesions/ Ulcerations Neck: Supple, No JVD, Negative Carotid Bruits Lungs: Air entry diminished more in the left lung base, left pleural effusion. No crepitation/rhonchi. On 3 L of oxygen. No tachypnea Cardiovascular: Sinus rhythm normal S1, Normal S2, systolic murmur over LLSB andcardiac apex Abdomen: Bowel Sounds Present, Soft, Non Tender, Non-Distended : No renal angle tenderness. No suprapubic tenderness. Extremities: Bilateral pedal pitting edema, 1+. Capillary Refill Less than 3 Seconds Skin: No rashes, No breakdown Musculoskeletal: No Tenderness to Palpation of Joints or Extremities, ROM increased of left lower extremity after stroke. Muscle strength 4+/5 of LLE, 3/5 LUE Neurological: Cranial nerves II-XII grossly intact, DTR 2+/4 and Symmetrical, chronic left upper extremity weakness Psych/Mental Status: Normal Affect, Appropriate. Assessment & Plan Assessment/Plan (1) Congestive heart failure: (2) Pleural effusion on left: PLAN: Plan This is 81-year-old gentleman who was admitted for shortness of breath for 2 weeks with no orthopnea or PND. No chest pain palpitation fever or chills. #Acute exacerbation of heart failure * Admitted to PCU 04/06: Repeat left decubitus chest x-ray ordered to look for drainable left pleural effusion.On Lasix 40 mg IV twice daily. Heart failure core measures including intake and output, fluid restriction less than 1500 mL, daily weight monitoring, kidney and electrolytes monitoring. The echo is ordered. EKG did not show acute change. Patient did not have chest pain or pressure therefore unlikely ACS. 04/07: Left decubitus chest x-ray reviewed. It is layered and looks moderate effusion therefore ultrasound-guided thoracocentesis ordered along with the analytical lab, cultures and cytology tests. Hold Plavix, Lovenox. Discussed with the nursing staff. 04/08: Lovenox resumed yesterday. Continue holding Plavix. Voice message left for Dr. Murrieta as cannot hold Plavix for 5 days 04/09: Schedule for left thoracocentesis today. I discussed with Dr. Biggs yesterday for procedure today. We will resume Plavix after 24 hours. 04/10: Order for left thoracentesis was discontinued by radiology no orders of unknown reason even though I talked to Dr. Murrieta as mentioned above. I talked to the patient yesterday evening when the nurse notified me about 5:20 PMand I informed and apologized to the patient. Next possible thoracocentesis will be on Tuesday. 04/11: Thoracocentesis with labs ordered for tomorrow AM. Hold Lovenox tomorrow AM. Plavix already on hold. 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 His blood pressure was 159/64 and heart rate 66 in ED. In the morning blood pressure normal. At one time in the past patient was on clonidine but probably high dose was given by mistake at home therefore patient was admitted with bradycardia, heart rate 30s. Kidney Doppler in 2021 shows stenosis of right-sided s/p renal angioplasty in July 2021. Follow-up renal Doppler did not show any stenosis. No suspicion for Conn syndrome as potassium is normal tonight. When creatinine stabilizes we will consider HCTZ or increasing the dose of losartan 04/07: Blood pressure is better controlled 135/53. Heart rate 72/min. 04/08: Blood pressure is baseline. 04/11: BP is controlled 122/58. #Normocytic normochromic anemia most likely due to CKD: Hb is 8.6. 04/06: Hemoglobin dropped to 7.7. Platelet count normal 275,000. 04/07: Hemoglobin further dropped to 7.5. MCV and RDW normal. Patient does nothave obvious GI bleed but stool for occult blood and comprehensive anemia work-up ordered. 04/08: Anemia work-up shows anemia of chronic kidney disease with low iron TIBC. Ferritin 166 iron saturation 6.7%. 1 dose IV iron ordered. 04/09: Hemoglobin low, 1 dose IV iron ordered. 04/10: Hemoglobin is above 7 for last several days. No acute bleeding. 04/11: Hemoglobin remains 7.6. Patient had 2 doses of IV iron and oral iron therapy. #CKD 3a: Cr is 1.76. This is around his baseline. eGFR is 40. On baseline, albumin creatinine ratio less than 30 mg/g. 04/06: Creatinine went up to 1.84, BUN 38. Enzyme Chemist consulted for CKD and hypertension diuretic management. Urine ordered for protein creatinine ratio. 04/07: Creatinine increased to 1.95. Lasix decreased to 40 mg IV daily and holdthe morning dose for proposed thoracocentesis. As per nursing staff patient hasto be 5 days of Plavix before thoracocentesis. 04/08: Creatinine is 1.93 similar to yesterday. Continue Lasix. Electrolytes are in normal range. Bicarb gradually increasing . 04/09: Creatinine 2.1. Patient is nonoliguric. Shortness of breath better and volume status is improved. Hold IV Lasix as recommended by manager corporate strategy. 04/10: Creatinine 2.12. 04/10: Creatinine 2.0. Continue current Lasix and Spironolactone #Type 2 diabetes mellitus: on lantus 14 units daily. ISS. Accuchecks ACHS. 04/02 glucose fluctuates between 112-206. In the morning it is 112 fasting. #Depression: on sertraline. DVT prophylaxis: lovenox Code status: full code Charges/Coding Visit Charges Inpatient E&M: 86260 Subs Hosp L2 04/11/22 1236 <Electronically signed by Adiel Umanzor MD> Cosigner Signature (if applicable): CC: ~ Signed [facility] Work Phone: [phone] Ruffin [facility] April 10, 2022 5:13pm Note Date/Time April 10, 2022 3 :57pm [facility] Medical Records Department [address] [place] [address] [place] [address] Progress Note - Nephrology 04/10/22 1548 MR#: [id number] Acct: [id number] Name: FRANCISCO THOMAS Rep #:[id number] : 1940 81 From: Carmela bhakta MD PCP: Dr. Jennifer Watt MD Status:ADM IN Location: [place] [address] Subjective Subjective Following for NABILA on CKD. The patient denies chest pain or shortness of breath at rest. He denies nausea or vomiting. Appetite is marginal. There is still some edema of the lower extremities. Objective Data Objective Data Vital Signs: Vital Signs Temp Pulse Resp BP Pulse Ox O2 Del Method O2 Flow Rate 97.9 F 57 L 18 132/54 H 92 Nasal Cannula 3 04/10/22 09:00 04/10/22 13:08 04/10/22 09:00 04/10/22 13:08 04/10/22 09:05 04/10/22 13:56 04/10/22 13:56 FiO2 4 04/06/22 22:10 Oxygen Flow Rate (L/min) 3 Oxygen Delivery Method Nasal Cannula Weight: 85.9 kg Body Mass Index (BMI) 25.6 Intake & Output: Intake and Output for Last 24 Hours 04/08/22 04/09/22 04/10/22 23:59 23:59 23:59 Intake Total 370 / 570 950 / 950 360 / 360 Output Total 860 / 860 200 / 300 700 / 700 Balance -490 / -290 750 / 650 -340 / -340 Lab / Micro Data Result Diagrams: 04/09/22 05:22 04/10/22 08:05 Labs: Laboratory Results - last 24 hr 04/09/22 11:19: POC Glucose 236 H 04/09/22 15:41: POC Glucose 205 H 04/09/22 21:34: POC Glucose 156 H 04/10/22 06:24: POC Glucose 112 H 04/10/22 08:05: Sodium 141, Potassium 3.7, Chloride 104, Carbon Dioxide 28.0, Anion Gap 9, BUN 58 H, Creatinine 2.12 H, Estim Creat Clear Calc 29.49, Est GFR (MDRD) Af Amer 39 L, Est GFR (MDRD) Non-Af 32 L, BUN/Creatinine Ratio 27.4 H, Glucose 125 H, Calcium 8.6 04/10/22 11:00: POC Glucose 206 H Micro: Microbiology 04/10/22 11:55 Stool Stool Occult Blood (DAX) - Final Physical Exam Narrative Alert, awake, oriented x 3. sitting in chair at bedside no JVD Normal s1s2 no murmurs lungs sounds clear anteriorly abdomen soft Trace edema bilateral lower legs Assessment & Plan Assessment/Plan (1) Chronic kidney disease (CKD) stage G3a/A1, moderately decreased glomerular filtration rate (GFR) between 45-59 mL/min/1.73 square meter and albuminuria creatinine ratio less than 30 mg/g: (2) Hypertension: PLAN: Plan Impression/Plan: The patient is a 81-year-old man with past history of type 2 diabetes mellitus, hypertension, stroke, CAD, heart failure with preserved ejection fraction, and hyperlipidemia. The patient was admitted to the hospital on 04/05/2022 with acute exacerbation of heart failure with preserved ejection fraction. Nephrology is following for NABILA on CKD. Acute kidney injury on chronic kidney disease stage IIIa. Baseline serum creatinine is around 1.7-1.8 mg/dL. Renal function is stable in the last 24 hours. Serum creatinine was 2.09 mg/dL yesterday and is 2.12 mg/dL today. Patient is nonoliguric and volume status has improved. Okay from nephrology standpoint to diurese if needed. 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 The patient should follow-up with us in 3 to 4 weeks after discharge. Hypertension. Renal Doppler from beginning of 2021 showed stenosis on the right side, s/p renal angioplasty on the right side in July 2021. Follow-up renal Doppler did not show any stenosis. Currently, he is on losartan 25 mg once a day, amlodipine 5 mg once a day, carvedilol 25 mg twice a day, hydralazine 75 mg 3 times a day, spironolactone 50mg once a day, and doxazosin 8 mg nightly. He was prescribed clonidine in the past, but he developed bradycardia. BP is reasonably controlled on current medical regimen. We will continue to monitor BP. Nephrology plan discussed with Dr. Umanzor. 04/10/22 0692 <Electronically signed by Carmela Ruffin MD> Cosigner Signature (if applicable): CC: ~ Signed [facility] Work Phone: 1(370) 774-588501-28-[address] Umanzor [facility] April 10, 2022 2:34pm Note Date/Time April 10, 2022 2 :34pm [facility] Medical Records Department [address] [place] [address] Progress Note - Hospitalist 04/10/22 1427 MR#: [id number] Acct: [id number] Name: FRANCISCO THOMAS Rep #:[id number] : 1940 81 From: Adiel Lee PCP: Dr. Jennifer Watt MD Status:ADM IN Location: [place] [address] Objective Data Objective Data Vital Signs: Vital Signs Temp Pulse Resp BP Pulse Ox O2 Del Method O2 Flow Rate 97.9 F 57 L 18 132/54 H 92 Nasal Cannula 3 04/10/22 09:00 04/10/22 13:08 04/10/22 09:00 04/10/22 13:08 04/10/22 09:05 04/10/22 13:56 04/10/22 13:56 FiO2 4 04/06/22 22:10 Oxygen Flow Rate (L/min) 3 Oxygen Delivery Method Nasal Cannula Weight: 189 lb 6.033 oz Body Mass Index (BMI) 25.6 Intake & Output: Intake and Output for Last 24 Hours 04/08/22 04/09/22 04/10/22 23:59 23:59 23:59 Intake Total 370 / 570 950 / 950 360 / 360 Output Total 860 / 860 200 / 300 700 / 700 Balance -490 / -290 750 / 650 -340 / -340 Lab / Micro Data Result Diagrams: 04/09/22 05:22 04/10/22 08:05 Labs: Laboratory Results - last 24 hr 04/09/22 11:19: POC Glucose 236 H 04/09/22 15:41: POC Glucose 205 H 04/09/22 21:34: POC Glucose 156 H 04/10/22 06:24: POC Glucose 112 H 04/10/22 08:05: Sodium 141, Potassium 3.7, Chloride 104, Carbon Dioxide 28.0, Anion Gap 9, BUN 58 H, Creatinine 2.12 H, Estim Creat Clear Calc 29.49, Est GFR (MDRD) Af Amer 39 L, Est GFR (MDRD) Non-Af 32 L, BUN/Creatinine Ratio 27.4 H, Glucose 125 H, Calcium 8.6 04/10/22 11:00: POC Glucose 206 H Micro: Microbiology 04/10/22 11:55 Stool Stool Occult Blood (DAX) - Final Physical Exam Narrative Seen and examined. Patient is alert shortness of breath is better. Physical exam General: Alert, Oriented x3, Cooperative HEENT: Atraumatic, PERRLA, EOMI, Normocephalic Oral: Oral mucosa moist. No Gingival or Mucosal Lesions/ Ulcerations Neck: Supple, No JVD, Negative Carotid Bruits Lungs: Air entry diminished more in the left lung base, left pleural effusion. No crepitation/rhonchi. On 3 L of oxygen. No tachypnea Cardiovascular: Sinus rhythm normal S1, Normal S2, systolic murmur over LLSB andcardiac apex Abdomen: Bowel Sounds Present, Soft, Non Tender, Non-Distended : No renal angle tenderness. No suprapubic tenderness. Extremities: Bilateral pedal pitting edema, 2+. Capillary Refill Less than 3 Seconds Skin: No rashes, No breakdown Musculoskeletal: No Tenderness to Palpation of Joints or Extremities, ROM increased of left lower extremity after stroke. Muscle strength 4+/5 of LLE, 3/5 LUE Neurological: Cranial nerves II-XII grossly intact, DTR 2+/4 and Symmetrical, chronic left upper extremity weakness Psych/Mental Status: Normal Affect, Appropriate. Assessment & Plan Assessment/Plan (1) Congestive heart failure: (2) Pleural effusion on left: PLAN: Plan This is 81-year-old gentleman who was admitted for shortness of breath for 2 weeks with no orthopnea or PND. No chest pain palpitation fever or chills. #Acute exacerbation of heart failure * Admitted to PCU 04/06: Repeat left decubitus chest x-ray ordered to look for drainable left pleural effusion.On Lasix 40 mg IV twice daily. Heart failure core measures including intake and output, fluid restriction less than 1500 mL, daily weight monitoring, kidney and electrolytes monitoring. The echo is ordered. EKG did not show acute change. Patient did not have chest pain or pressure therefore unlikely ACS. 04/07: Left decubitus chest x-ray reviewed. It is layered and looks moderate effusion therefore ultrasound-guided thoracocentesis ordered along with the analytical lab, cultures and cytology tests. Hold Plavix, Lovenox. Discussed with the nursing staff. 04/08: Lovenox resumed yesterday. Continue holding Plavix. Voice message left for Dr. Murrieta as cannot hold Plavix for 5 days 04/09: Schedule for left thoracocentesis today. I discussed with Dr. Biggs yesterday for procedure today. We will resume Plavix after 24 hours. 04/10: Order for left arthrocentesis was discontinued by radiology no orders of unknown reason even though I talked to Dr. Murrieta as mentioned above. I talked to the patient yesterday evening when the nurse notified me about 5:20 PM Ruperto informed and apologized to the patient. Next possible thoracocentesis will be on Tuesday. 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 His blood pressure was 159/64 and heart rate 66 in ED. In the morning blood pressure normal. At one time in the past patient was on clonidine but probably high dose was given by mistake at home therefore patient was admitted with bradycardia, heart rate 30s. Kidney Doppler in 2021 shows stenosis of right-sided s/p renal angioplasty in July 2021. Follow-up renal Doppler did not show any stenosis. No suspicion for Conn syndrome as potassium is normal tonight. When creatinine stabilizes we will consider HCTZ or increasing the dose of losartan 04/07: Blood pressure is better controlled 135/53. Heart rate 72/min. 04/08: Blood pressure is baseline. #Normocytic normochromic anemia most likely due to CKD: Hb is 8.6. 04/06: Hemoglobin dropped to 7.7. Platelet count normal 275,000. 04/07: Hemoglobin further dropped to 7.5. MCV and RDW normal. Patient does nothave obvious GI bleed but stool for occult blood and comprehensive anemia work-up ordered. 04/08: Anemia work-up shows anemia of chronic kidney disease with low iron TIBC. Ferritin 166 iron saturation 6.7%. 1 dose IV iron ordered. 04/09: Hemoglobin low, 1 dose IV iron ordered. 04/10: Hemoglobin is above 7 for last several days. No acute bleeding. #CKD 3a: Cr is 1.76. This is around his baseline. eGFR is 40. On baseline, albumin creatinine ratio less than 30 mg/g. 04/06: Creatinine went up to 1.84, BUN 38. Enzyme Chemist consulted for CKD and hypertension diuretic management. Urine ordered for protein creatinine ratio. 04/07: Creatinine increased to 1.95. Lasix decreased to 40 mg IV daily and holdthe morning dose for proposed thoracocentesis. As per nursing staff patient hasto be 5 days of Plavix before thoracocentesis. 04/08: Creatinine is 1.93 similar to yesterday. Continue Lasix. Electrolytes are in normal range. Bicarb gradually increasing 29. 04/09: Creatinine 2.1. Patient is nonoliguric. Shortness of breath better and volume status is improved. Hold IV Lasix as recommended by manager corporate strategy. 04/10: Creatinine 2.12. #Type 2 diabetes mellitus: on lantus 14 units daily. ISS. Accuchecks ACHS. 04/02 glucose fluctuates between 112-206. In the morning it is 112 fasting. #Depression: on sertraline. DVT prophylaxis: lovenox Code status: full code Charges/Coding Visit Charges Inpatient E&M: 35798 Subs Hosp L2 04/10/22 1434 <Electronically signed by Adiel Umanzor MD> Cosigner Signature (if applicable): CC: ~ Signed [facility] Work Phone: 1(672) 825-576401-27-[address] Olivia [facility] April 09, 2022 2:38pm Note Date/Time April 09, 2022 1 1:27am [facility] Medical Records Department [address] [place] [address] Progress Note - Nephrology 04/09/22 1121 MR#: [id number] Acct: [id number] Name: FRANCISCO THOMAS Rep #:[id number] : 1940 81 From: Rosalba chilel [employer]USH[employer]-C PCP: Dr. Jennifer Watt MD Status:ADM IN Location: [place] [address] Documented by User: YAN Crews 04/09/22 11:33 Subjective Subjective Sitting in chair. Denies complaints. No overnight events. Objective Data Objective Data Vital Signs: Vital Signs Temp Pulse Resp BP Pulse Ox O2 Del Method O2 Flow Rate 98.1 F 65 17 148/62 H 93 Nasal Cannula 3 04/09/22 08:02 04/09/22 08:02 04/09/22 08:02 04/09/22 08:02 04/09/22 09:46 04/09/22 08:02 04/09/22 09:46 FiO2 4 04/06/22 22:10 Oxygen Flow Rate (L/min) 3 Oxygen Delivery Method Nasal Cannula Weight: 85.9 kg Body Mass Index (BMI) 25.6 Intake & Output: Intake and Output for Last 24 Hours 04/07/22 04/08/22 04/09/22 23:59 23:59 23:59 Intake Total 600 / 700 370 / 570 200 / 200 Output Total 2410 / 2870 860 / 860 200 / 200 Balance -1810 / -2170 -490 / -290 0 / 0 Lab / Micro Data Result Diagrams: 04/09/22 05:22 04/09/22 05:22 Labs: Laboratory Results - last 24 hr 04/07/22 08:28: Haptoglobin 374 H 04/08/22 12:02: POC Glucose 279 H 04/08/22 16:45: POC Glucose 149 H 04/08/22 21:51: POC Glucose 175 H 04/09/22 05:22: WBC 8.6, RBC 2.59 L, Hgb 7.4 L, Hct 23.2 L, MCV 89.6, MCH 28.6, MCHC 31.9 L, RDW Std Deviation 47.0 H, RDW Coeff of Cait 14.4, Plt Count 314, MPV10.6, Immature Gran % (Auto) 0.200, Neut % (Auto) 63.8, Lymph % (Auto) 13.3 L, [place] % (Auto) 14.5 H, Eos % (Auto) 7.5 H, Baso % (Auto) 0.7, Absolute Neuts (auto) 5.5, Absolute Lymphs (auto) 1.15, Nucleated RBC % 0 04/09/22 05:22: Sodium 141, Potassium 3.4 L, Chloride 103, Carbon Dioxide 29.0, Anion Gap 9, BUN 52 H, Creatinine 2.09 H, Estim Creat Clear Calc 29.91, Est GFR (MDRD) Af Amer 39 L, Est GFR (MDRD) Non-Af 32 L, BUN/Creatinine Ratio 24.9 H, Glucose 120 H, Calcium 8.6, Lactate Dehydrogenase 97, Total Protein 6.3 L, Globulin 3.9, Albumin/Globulin Ratio 0.6 L 04/09/22 05:22: PT 15.0 H, INR 1.2, APTT 38.8 H 04/09/22 06:15: POC Glucose 127 H Physical Exam Narrative Alert, awake, oriented x 3. sitting in chair at bedside no JVD s1s2 no murmurs lungs sounds clear anteriorly abdomen soft Trace edema bilateral lower legs Assessment & Plan Assessment/Plan (1) Chronic kidney disease (CKD) stage G3a/A1, moderately decreased glomerular filtration rate (GFR) between 45-59 mL/min/1.73 square meter and albuminuria creatinine ratio less than 30 mg/g: PLAN: His creatinine in 2020 was normal/close to normal at 1.0-1.1. Over the last 1 year due to other changes, creatinine values have fluctuated significantly. Baseline creatinine seems to be between 1.3-1.5. Creatinine nowis slightly higher, presumably due to diuresis. Urine analysis shows some proteinuria, urine PCR 0.8 not impressive for nephrotic syndrome renal ultrasound without any hydronephrosis. Nearly symmetrical kidneys. Most likely creatinine changes are related to other ongoing events. (2) Hypertension: PLAN: - NABILA on CKD; overall renal function relatively stable. SCr 1.7 on admission, last few days SCr 1.9 and today SCr 2.1. Patient is nonoliguric and volume status has improved. 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 - HTN: Renal Doppler from beginning of 2021 showed stenosis on the right side, s/p renal angioplasty on the right side in July 2021. Follow-up renal Doppler did not show any stenosis. Currently he is on losartan 25 mg once a day, amlodipine 5 mg once a day, Coreg 25 mg twice a day, hydralazine 3 times a day, He was prescribed Clonidine, developed bradycardia. - Scheduled for thoracocentesis today. He received lasix this am. If SCr up again tomorrow may need to hold IV lasix. Documented by User: Dr. Elham Olivia MD 04/09/22 14:38 Objective Data Lab / Micro Data Result Diagrams: 04/09/22 05:22 04/09/22 05:22 Assessment & Plan Assessment/Plan (1) Chronic kidney disease (CKD) stage G3a/A1, moderately decreased glomerular filtration rate (GFR) between 45-59 mL/min/1.73 square meter and albuminuria creatinine ratio less than 30 mg/g: (2) Hypertension: PLAN: - NABILA on CKD; overall renal function relatively stable. SCr 1.7 on admission, last few days SCr 1.9 and today SCr 2.1. Patient is nonoliguric and volume status has improved. 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 - HTN: Renal Doppler from beginning of 2021 showed stenosis on the right side, s/p renal angioplasty on the right side in July 2021. Follow-up renal Doppler did not show any stenosis. Currently he is on losartan 25 mg once a day, amlodipine 5 mg once a day, Coreg 25 mg twice a day, hydralazine 3 times a day, He was prescribed Clonidine, developed bradycardia. - Scheduled for thoracocentesis today. He received lasix this am. If SCr up again tomorrow may need to hold IV lasix. Addendum dc lasix. cr stable. 04/09/22 1133 <Electronically signed by Rosalba HEREDIA> Cosigner Signature (if applicable): 04/09/22 1438 <Electronically signed by Elham Olivia MD> CC: ~ Signed [facility] Work Phone: 1(250) [phone] Umanzor [facility] April 09, 2022 1:52pm Note Date/Time April 09, 2022 8 :03am [facility] Medical Records Department [address] [place] [address] [place] [address] Progress Note - Hospitalist 04/09/22 0800 MR#: [id number] Acct: [id number] Name: FRANCISCO THOMAS Rep #:[id number] : 1940 81 From: Adiel Lee PCP: Dr. Jennifer Watt MD Status:ADM IN Location: [place] [address] Objective Data Objective Data Vital Signs: Vital Signs Temp Pulse Resp BP Pulse Ox O2 Del Method O2 Flow Rate 99.0 F 65 16 143/60 H 92 Bi-pap 3 04/09/22 04:21 04/09/22 06:23 04/09/22 04:21 04/09/22 06:23 04/09/22 04:21 04/09/22 04:22 04/08/22 21:54 FiO2 4 04/06/22 22:10 Oxygen Flow Rate (L/min) 3 Oxygen Delivery Method Bi-pap Weight: 189 lb 6.033 oz Body Mass Index (BMI) 25.6 Intake & Output: Intake and Output for Last 24 Hours 04/07/22 04/08/22 04/09/22 23:59 23:59 23:59 Intake Total 600 / 700 370 / 570 200 / 200 Output Total 2410 / 2870 860 / 860 200 / 200 Balance -1810 / -2170 -490 / -290 0 / 0 Lab / Micro Data Result Diagrams: 04/09/22 05:22 04/09/22 05:22 Labs: Laboratory Results - last 24 hr 04/07/22 08:28: Haptoglobin 374 H 04/08/22 12:02: POC Glucose 279 H 04/08/22 16:45: POC Glucose 149 H 04/08/22 21:51: POC Glucose 175 H 04/09/22 05:22: WBC 8.6, RBC 2.59 L, Hgb 7.4 L, Hct 23.2 L, MCV 89.6, MCH 28.6, MCHC 31.9 L, RDW Std Deviation 47.0 H, RDW Coeff of Cait 14.4, Plt Count 314, MPV10.6, Immature Gran % (Auto) 0.200, Neut % (Auto) 63.8, Lymph % (Auto) 13.3 L, [place] % (Auto) 14.5 H, Eos % (Auto) 7.5 H, Baso % (Auto) 0.7, Absolute Neuts (auto) 5.5, Absolute Lymphs (auto) 1.15, Nucleated RBC % 0 04/09/22 05:22: Sodium 141, Potassium 3.4 L, Chloride 103, Carbon Dioxide 29.0, Anion Gap 9, BUN 52 H, Creatinine 2.09 H, Estim Creat Clear Calc 29.91, Est GFR (MDRD) Af Amer 39 L, Est GFR (MDRD) Non-Af 32 L, BUN/Creatinine Ratio 24.9 H, Glucose 120 H, Calcium 8.6, Lactate Dehydrogenase 97, Total Protein 6.3 L, Globulin 3.9, Albumin/Globulin Ratio 0.6 L 04/09/22 05:22: PT 15.0 H, INR 1.2, APTT 38.8 H 04/09/22 06:15: POC Glucose 127 H Physical Exam Narrative Seen and examined. Physical exam General: Alert, Oriented x3, Cooperative HEENT: Atraumatic, PERRLA, EOMI, Normocephalic Oral: Oral mucosa moist. No Gingival or Mucosal Lesions/ Ulcerations Neck: Supple, No JVD, Negative Carotid Bruits Lungs: Air entry diminished more in the left lung base, left pleural effusion. No crepitation/rhonchi. Cardiovascular: Sinus rhythm normal S1, Normal S2, systolic murmur over LLSB andcardiac apex Abdomen: Bowel Sounds Present, Soft, Non Tender, Non-Distended : No renal angle tenderness. No suprapubic tenderness. Extremities: Bilateral pedal pitting edema, 2+. Capillary Refill Less than 3 Seconds Skin: No rashes, No breakdown Musculoskeletal: No Tenderness to Palpation of Joints or Extremities, ROM increased of left lower extremity after stroke. Muscle strength 4+/5 of LLE, 3/5 LUE Neurological: Cranial nerves II-XII grossly intact, DTR 2+/4 and Symmetrical, chronic left upper extremity weakness Psych/Mental Status: Normal Affect, Appropriate. Assessment & Plan Assessment/Plan (1) Congestive heart failure: (2) Pleural effusion on left: PLAN: Plan This is 81-year-old gentleman who was admitted for shortness of breath for 2 weeks with no orthopnea or PND. No chest pain palpitation fever or chills. #Acute exacerbation of heart failure * Admitted to U 04/06: Repeat left decubitus chest x-ray ordered to look for drainable left pleural effusion.On Lasix 40 mg IV twice daily. Heart failure core measures including intake and output, fluid restriction less than 1500 mL, daily weight monitoring, kidney and electrolytes monitoring. The echo is ordered. EKG did not show acute change. Patient did not have chest pain or pressure therefore unlikely ACS. 04/07: Left decubitus chest x-ray reviewed. It is layered and looks moderate effusion therefore ultrasound-guided thoracocentesis ordered along with the analytical lab, cultures and cytology tests. Hold Plavix, Lovenox. Discussed with the nursing staff. 04/08: Lovenox resumed yesterday. Continue holding Plavix. Voice message left for Dr. Murrieta as cannot hold Plavix for 5 days 04/09: Schedule for left thoracocentesis today. I discussed with Dr. Biggs yesterday for procedure today. We will resume Plavix after 24 hours. 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 His blood pressure was 159/64 and heart rate 66 in ED. In the morning blood pressure normal. At one time in the past patient was on clonidine but probably high dose was given by mistake at home therefore patient was admitted with bradycardia, heart rate 30s. Kidney Doppler in 2021 shows stenosis of right-sided s/p renal angioplasty in July 2021. Follow-up renal Doppler did not show any stenosis. No suspicion for Conn syndrome as potassium is normal tonight. When creatinine stabilizes we will consider HCTZ or increasing the dose of losartan 04/07: Blood pressure is better controlled 135/53. Heart rate 72/min. 04/08: Blood pressure is baseline. #Normocytic normochromic anemia most likely due to CKD: Hb is 8.6. 04/06: Hemoglobin dropped to 7.7. Platelet count normal 275,000. 04/07: Hemoglobin further dropped to 7.5. MCV and RDW normal. Patient does nothave obvious GI bleed but stool for occult blood and comprehensive anemia work-up ordered. 04/08: Anemia work-up shows anemia of chronic kidney disease with low iron TIBC. Ferritin 166 iron saturation 6.7%. 1 dose IV iron ordered. 04/09: Hemoglobin low, 1 dose IV iron ordered. #CKD 3a: Cr is 1.76. This is around his baseline. eGFR is 40. On baseline, albumin creatinine ratio less than 30 mg/g. 04/06: Creatinine went up to 1.84, BUN 38. Enzyme Chemist consulted for CKD and hypertension diuretic management. Urine ordered for protein creatinine ratio. 04/07: Creatinine increased to 1.95. Lasix decreased to 40 mg IV daily and holdthe morning dose for proposed thoracocentesis. As per nursing staff patient hasto be 5 days of Plavix before thoracocentesis. 04/08: Creatinine is 1.93 similar to yesterday. Continue Lasix. Electrolytes are in normal range. Bicarb gradually increasing 29. 04/09: Creatinine 2.1. Patient is nonoliguric. Shortness of breath better and volume status is improved. Hold IV Lasix as recommended by manager corporate strategy. #Type 2 diabetes mellitus: on lantus 14 units daily. ISS. Accuchecks ACHS. #Depression: on sertraline. DVT prophylaxis: lovenox Code status: full code Charges/Coding Visit Charges Inpatient E&M: 39932 Subs Hosp L2 04/09/22 6324 <Electronically signed by Adiel Umanzor MD> Cosigner Signature (if applicable): CC: ~ Signed [facility] Work Phone: [phone]) 738-947101-26-[address] Umanzor [facility] April 08, 2022 3:39pm Note Date/Time April 08, 2022 8 :10am [facility] Medical Records Department [address] [place] [id number] Progress Note - Hospitalist 04/08/22 0808 MR#: [id number] Acct: [id number] Name: FRANCISCO THOMAS Rep #:[id number] : 1940 81 From: Adiel Lee PCP: Dr. Jennifer Watt MD Status:ADM IN Location: [place] [address] Subjective Subjective Follow-up for heart failure, CKD, left pleural effusion. Patient is taking Plavix after renal stent put less than a year ago. Bleeding . Objective Data Objective Data Vital Signs: Vital Signs Temp Pulse Resp BP Pulse Ox O2 Del Method O2 Flow Rate 98.5 F 60 18 135/53 H 98 High Flow 6 04/08/22 06:15 04/08/22 06:19 04/08/22 06:15 04/08/22 06:19 04/08/22 06:15 04/08/22 06:15 04/08/22 06:15 FiO2 4 04/06/22 22:10 Oxygen Flow Rate (L/min) 6 Oxygen Delivery Method High Flow Weight: 189 lb 6.033 oz Body Mass Index (BMI) 25.6 Intake & Output: Intake and Output for Last 24 Hours 04/06/22 04/07/22 04/08/22 23:59 23:59 23:59 Intake Total 240 / 240 600 / 700 100 / 100 Output Total 1300 / 1500 2410 / 2870 860 / 860 Balance -1060 / -1260 -1810 / -2170 -760 / -760 Lab / Micro Data Result Diagrams: 04/08/22 04:24 04/08/22 04:24 Labs: Laboratory Results - last 24 hr 04/07/22 08:28: Vitamin B12 1661 H 04/07/22 08:28: Iron 14 L, TIBC 208 L, Iron Saturation 6.7 L, Ferritin 166, Lactate Dehydrogenase 127, Total Protein 6.4, Globulin 3.7, Albumin/Globulin Ratio 0.7 L 04/07/22 08:28: Retic Count 1.40, Immature Retic Fraction 19.20 H, Retic Hgb Equivalent 25.3 L 04/07/22 11:53: POC Glucose 262 H 04/07/22 16:13: POC Glucose 127 H 04/07/22 22:30: POC Glucose 160 H 04/08/22 04:24: WBC 9.6, RBC 2.79 L, Hgb 8.0 L, Hct 25.1 L, MCV 90.0, MCH 28.7, MCHC 31.9 L, RDW Std Deviation 47.4 H, RDW Coeff of Cait 14.3, Plt Count 322, MPV10.4, Immature Gran % (Auto) 0.300, Neut % (Auto) 72.9 H, Lymph % (Auto) 8.7 L, [place] % (Auto) 12.3 H, Eos % (Auto) 5.1 H, Baso % (Auto) 0.7, Absolute Neuts (auto) 7.0, Absolute Lymphs (auto) 0.83, Nucleated RBC % 0 04/08/22 04:24: Sodium 140, Potassium 3.6, Chloride 103, Carbon Dioxide 29.0, Anion Gap 8, BUN 48 H, Creatinine 1.93 H, Estim Creat Clear Calc 32.39, Est GFR (MDRD) Af Amer 43 L, Est GFR (MDRD) Non-Af 36 L, BUN/Creatinine Ratio 24.9 H, Glucose 138 H, Calcium 8.5 04/08/22 06:19: POC Glucose 141 H Physical Exam Narrative Seen and examined. Physical exam General: Alert, Oriented x3, Cooperative HEENT: Atraumatic, PERRLA, EOMI, Normocephalic Oral: Oral mucosa moist. No Gingival or Mucosal Lesions/ Ulcerations Neck: Supple, No JVD, Negative Carotid Bruits Lungs: Air entry diminished more in the left lung base, left pleural effusion. Mild expiratory rhonchi. Cardiovascular: Sinus rhythm normal S1, Normal S2, systolic murmur over LLSB andcardiac apex Abdomen: Bowel Sounds Present, Soft, Non Tender, Non-Distended : No renal angle tenderness. No suprapubic tenderness. Extremities: Bilateral pedal pitting edema, 2+. Capillary Refill Less than 3 Seconds Skin: No rashes, No breakdown Musculoskeletal: No Tenderness to Palpation of Joints or Extremities, ROM intact. Neurological: Cranial nerves II-XII grossly intact, DTR 2+/4 and Symmetrical, Neuro grossly intact Psych/Mental Status: Normal Affect, Appropriate. Assessment & Plan Assessment/Plan (1) Congestive heart failure: (2) Pleural effusion on left: PLAN: Plan This is 81-year-old gentleman who was admitted for shortness of breath for 2 weeks with no orthopnea or PND. No chest pain palpitation fever or chills. #Acute exacerbation of heart failure * Admitted to PCU 04/06: Repeat left decubitus chest x-ray ordered to look for drainable left pleural effusion.On Lasix 40 mg IV twice daily. Heart failure core measures including intake and output, fluid restriction less than 1500 mL, daily weight monitoring, kidney and electrolytes monitoring. The echo is ordered. EKG did not show acute change. Patient did not have chest pain or pressure therefore unlikely ACS. 04/07: Left decubitus chest x-ray reviewed. It is layered and looks moderate effusion therefore ultrasound-guided thoracocentesis ordered along with the analytical lab, cultures and cytology tests. Hold Plavix, Lovenox. Discussed with the nursing staff. 04/08: Lovenox resumed yesterday. Continue holding Plavix. Voice message left for Dr. 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 His blood pressure was 159/64 and heart rate 66 in ED. In the morning blood pressure normal. At one time in the past patient was on clonidine but probably high dose was given by mistake at home therefore patient was admitted with bradycardia, heart rate 30s. Kidney Doppler in 2021 shows stenosis of right-sided s/p renal angioplasty in July 2021. Follow-up renal Doppler did not show any stenosis. No suspicion for Conn syndrome as potassium is normal tonight. When creatinine stabilizes we will consider HCTZ or increasing the dose of losartan 04/07: Blood pressure is better controlled 135/53. Heart rate 72/min. #Normocytic normochromic anemia most likely due to CKD: Hb is 8.6. 04/06: Hemoglobin dropped to 7.7. Platelet count normal 275,000. 04/07: Hemoglobin further dropped to 7.5. MCV and RDW normal. Patient does nothave obvious GI bleed but stool for occult blood and comprehensive anemia work-up ordered. 04/08: Anemia work-up shows anemia of chronic kidney disease with low iron TIBC. Ferritin 166 iron saturation 6.7%. 1 dose IV iron ordered. #CKD 3a: Cr is 1.76. This is around his baseline. eGFR is 40. On baseline, albumin creatinine ratio less than 30 mg/g. 04/06: Creatinine went up to 1.84, BUN 38. Enzyme Chemist consulted for CKD and hypertension diuretic management. Urine ordered for protein creatinine ratio. 04/07: Creatinine increased to 1.95. Lasix decreased to 40 mg IV daily and holdthe morning dose for proposed thoracocentesis. As per nursing staff patient hasto be 5 days of Plavix before thoracocentesis. 04/08: Creatinine is 1.93 similar to yesterday. Continue Lasix. Electrolytes are in normal range. Bicarb gradually increasing 29. #Type 2 diabetes mellitus: on lantus 14 units daily. ISS. Accuchecks ACHS. #Depression: on sertraline. DVT prophylaxis: lovenox Code status: full code Total time of the visit including total time spent in counseling or coordinationof care, (more than 50% of the total time, spent in obtaining medical information from nurses and other ancillary care providers,explaining to the patient about labs, imaging, diagnosis and management of active complex medical conditions), discussion on different diagnosis to the daughter including CKD, hypertension and heart failure, discussion with the manager corporate strategy and inside wireman, IR. review of labs and imaging is 50 minutes. Laboratory Results 04/06/22 12:36: POC Glucose 181 H 04/06/22 17:02: POC Glucose 200 H 04/06/22 20:48: U Random Total Protein 48.1 H, Urine Creatinine 60.10, Protein/Creatinin Ratio 800 H 04/06/22 23:42: POC Glucose 163 H 04/07/22 06:03: WBC 8.3, RBC 2.61 L, Hgb 7.5 L, Hct 23.3 L, MCV 89.3, MCH 28.7, MCHC 32.2, RDW Std Deviation 46.3 H, RDW Coeff of Cait 14.2, Plt Count 287, MPV 10.5, Immature Gran % (Auto) 0.400, Neut % (Auto) 60.9, Lymph % (Auto) 14.3 L, [place] % (Auto) 15.0 H, Eos % (Auto) 8.6 H, Baso % (Auto) 0.8, Absolute Neuts (auto) 5.1, Absolute Lymphs (auto) 1.19, Nucleated RBC % 0 04/07/22 06:03: Sodium 141, Potassium 3.6, Chloride 106, Carbon Dioxide 29.0, Anion Gap 6, BUN 44 H, Creatinine 1.95 H, Estim Creat Clear Calc 32.06, Est GFR (MDRD) Af Amer 43 L, Est GFR (MDRD) Non-Af 35 L, BUN/Creatinine Ratio 22.6 H, Glucose 122 H, Calcium 8.6 04/07/22 06:37: POC Glucose 131 H Charges/Coding Visit Charges Inpatient E&M: 88064 Subs Hosp L3 04/08/22 1007 <Electronically signed by Adiel Umanzor MD> Cosigner Signature (if applicable): CC: ~ Signed ADDENDUM by Dr. Adiel Umanzor MD on 04/08/22 at 1539 Addendum I talked to Dr. Biggs, interventional radiologist. He agreed for doing arthrocentesis tomorrow AM. 04/08/22 1539<Electronically signed by Adiel Umanzor MD> Cosigner Signature (if applicable): cc: ~* Signed [facility] Work Phone: 1(830) 702-630201-26-[address] Olivia [facility] April 08, 2022 2:12pm Note Date/Time April 08, 2022 2 :12pm [facility] Medical Records Department [address] [place] [address] Progress Note - Nephrology 04/08/22 1411 MR#: [id number] Acct: [id number] Name: FRANCISCO THOMAS Rep #:[id number] : 1940 81 From: Elham brady MD PCP: Dr. Jennifer Watt MD Status:ADM IN Location: [place] [address] Subjective Subjective No new complaints Objective Data Objective Data Vital Signs: Vital Signs Temp Pulse Resp BP Pulse Ox O2 Del Method O2 Flow Rate 98.5 F 51 L 18 135/53 H 97 High Flow 6 04/08/22 06:15 04/08/22 14:05 04/08/22 06:15 04/08/22 06:19 04/08/22 09:26 04/08/22 09:35 04/08/22 09:35 FiO2 4 04/06/22 22:10 Oxygen Flow Rate (L/min) 6 Oxygen Delivery Method High Flow Weight: 85.9 kg Body Mass Index (BMI) 25.6 Intake & Output: Intake and Output for Last 24 Hours 04/06/22 04/07/22 04/08/22 23:59 23:59 23:59 Intake Total 240 / 240 600 / 700 370 / 370 Output Total 1300 / 1500 2410 / 2870 860 / 860 Balance -1060 / -1260 -1810 / -2170 -490 / -490 Lab / Micro Data Result Diagrams: 04/08/22 04:24 04/08/22 04:24 Labs: Laboratory Results - last 24 hr 04/07/22 16:13: POC Glucose 127 H 04/07/22 22:30: POC Glucose 160 H 04/08/22 04:24: WBC 9.6, RBC 2.79 L, Hgb 8.0 L, Hct 25.1 L, MCV 90.0, MCH 28.7, MCHC 31.9 L, RDW Std Deviation 47.4 H, RDW Coeff of Cait 14.3, Plt Count 322, MPV10.4, Immature Gran % (Auto) 0.300, Neut % (Auto) 72.9 H, Lymph % (Auto) 8.7 L, [place] % (Auto) 12.3 H, Eos % (Auto) 5.1 H, Baso % (Auto) 0.7, Absolute Neuts (auto) 7.0, Absolute Lymphs (auto) 0.83, Nucleated RBC % 0 04/08/22 04:24: Sodium 140, Potassium 3.6, Chloride 103, Carbon Dioxide 29.0, Anion Gap 8, BUN 48 H, Creatinine 1.93 H, Estim Creat Clear Calc 32.39, Est GFR (MDRD) Af Amer 43 L, Est GFR (MDRD) Non-Af 36 L, BUN/Creatinine Ratio 24.9 H, Glucose 138 H, Calcium 8.5 04/08/22 06:19: POC Glucose 141 H 04/08/22 12:02: POC Glucose 279 H Physical Exam Narrative Alert awake oriented x 3 no obvious distress no pallor no icterus no JVD s1s2 no murmurs lungs clear abdomen soft no organomegaly no edema no cyanosis Assessment & Plan Assessment/Plan (1) Chronic kidney disease (CKD) stage G3a/A1, moderately decreased glomerular filtration rate (GFR) between 45-59 mL/min/1.73 square meter and albuminuria creatinine ratio less than 30 mg/g: PLAN: His creatinine in 2020 was normal/close to normal at 1.0-1.1. Over the last 1 year due to other changes, creatinine values have fluctuated significantly. Baseline creatinine seems to be between 1.3-1.5. Creatinine nowis slightly higher, presumably due to diuresis. Urine analysis shows some proteinuria, urine PCR 0.8 not impressive for nephrotic syndrome renal ultrasound without any hydronephrosis. Nearly symmetrical kidneys. Most likely creatinine changes are related to other ongoing events. (2) Hypertension: PLAN: Has been dealing with hypertension for last 1 year. Reviewed records. Renal Doppler from beginning of 2021 showed stenosis on the right side, s/p renal angioplasty on the right side in July 2021. Follow-up renal Doppler did not show any stenosis. I do not have suspicion for Conn syndrome since his potassium is normal to high. It seems he was on Diovan, hydrochlorothiazide, Aldactone at some point in the past and was taken off due to creatinine changes. Currently he is on losartan 25 mg once a day, amlodipine 5 mg once a day, Coreg 25 mg twice a day, hydralazine 3 times a day,alpha blockers. He was prescribed Clonidine, developedbradycardia. There was a question if a higher than recommended dose was given. Heart rate is around 65. ;asix cut down to once a day for now Scheduled for thoracocentesis tomorrow Continue same medications Blood pressure is acceptable today Discussed with hospitalist 04/08/22 1412 <Electronically signed by Elham Olivia MD> Cosigner Signature (if applicable): CC: ~ Signed [facility] Work Phone: 1(408) 450-186401-25-[address] Umanzor [facility] April 07, 2022 3:52pm Note Date/Time April 07, 2022 7 :45am [facility] Medical Records Department [address] [place] [address] Progress Note - Hospitalist 04/07/22 0740 MR#: [id number] Acct: [id number] Name: FRANCISCO THOMAS Rep #:[id number] : 1940 81 From: Adiel Lee PCP: Dr. Jennifer Watt MD Status:ADM IN Location: [place] [address] Subjective Subjective Follow-up for multiple medical problems including heart failure, CKD, severe anemia and functional decline Objective Data Objective Data Vital Signs: Vital Signs Temp Pulse Resp BP Pulse Ox O2 Del Method O2 Flow Rate 97.6 F L 62 16 130/58 H 95 Bi-pap 4 04/07/22 05:00 04/07/22 06:16 04/07/22 05:00 04/07/22 06:16 04/07/22 05:00 04/07/22 05:00 04/07/22 05:00 FiO2 4 04/06/22 22:10 Oxygen Flow Rate (L/min) 4 Oxygen Delivery Method Bi-pap Weight: 189 lb 6.033 oz Body Mass Index (BMI) 25.6 Intake & Output: Intake and Output for Last 24 Hours 04/05/22 04/06/22 04/07/22 23:59 23:59 23:59 Intake Total 240 / 240 Output Total 825 / 825 1300 / 1500 700 / 700 Balance -825 / -825 -1060 / -1260 -700 / -700 Lab / Micro Data Result Diagrams: 04/07/22 06:03 04/07/22 06:03 Labs: Laboratory Results - last 24 hr 04/06/22 12:36: POC Glucose 181 H 04/06/22 17:02: POC Glucose 200 H 04/06/22 20:48: U Random Total Protein 48.1 H, Urine Creatinine 60.10, Protein/Creatinin Ratio 800 H 04/06/22 23:42: POC Glucose 163 H 04/07/22 06:03: WBC 8.3, RBC 2.61 L, Hgb 7.5 L, Hct 23.3 L, MCV 89.3, MCH 28.7, MCHC 32.2, RDW Std Deviation 46.3 H, RDW Coeff of Cait 14.2, Plt Count 287, MPV 10.5, Immature Gran % (Auto) 0.400, Neut % (Auto) 60.9, Lymph % (Auto) 14.3 L, [place] % (Auto) 15.0 H, Eos % (Auto) 8.6 H, Baso % (Auto) 0.8, Absolute Neuts (auto) 5.1, Absolute Lymphs (auto) 1.19, Nucleated RBC % 0 04/07/22 06:03: Sodium 141, Potassium 3.6, Chloride 106, Carbon Dioxide 29.0, Anion Gap 6, BUN 44 H, Creatinine 1.95 H, Estim Creat Clear Calc 32.06, Est GFR (MDRD) Af Amer 43 L, Est GFR (MDRD) Non-Af 35 L, BUN/Creatinine Ratio 22.6 H, Glucose 122 H, Calcium 8.6 04/07/22 06:37: POC Glucose 131 H Radiography Diagnostic Testing: Radiology Impression Chest X-Ray 04/06/22 15:10 IMPRESSION: Right-sided infiltrate increased and stable moderate left pleural effusion Electronically Signed: Phil Lema MD at 17:57 EST Reading Location ID and State: [address] [place] [address] , Service support , Physical Exam Narrative Seen and examined. Physical exam General: Alert, Oriented x3, Cooperative HEENT: Atraumatic, PERRLA, EOMI, Normocephalic Oral: Oral mucosa moist. No Gingival or Mucosal Lesions/ Ulcerations Neck: Supple, No JVD, Negative Carotid Bruits Lungs: Air entry diminished more in the left lung base, left pleural effusion. Mild expiratory rhonchi. Cardiovascular: Sinus rhythm normal S1, Normal S2, systolic murmur over LLSB andcardiac apex Abdomen: Bowel Sounds Present, Soft, Non Tender, Non-Distended : No renal angle tenderness. No suprapubic tenderness. Extremities: Bilateral pedal pitting edema, 2+. Capillary Refill Less than 3 Seconds Skin: No rashes, No breakdown Musculoskeletal: No Tenderness to Palpation of Joints or Extremities, ROM intact. Neurological: Cranial nerves II-XII grossly intact, DTR 2+/4 and Symmetrical, Neuro grossly intact Psych/Mental Status: Normal Affect, Appropriate. Assessment & Plan Assessment/Plan (1) Congestive heart failure: (2) Pleural effusion on left: PLAN: Plan This is 81-year-old gentleman who was admitted for shortness of breath for 2 weeks with no orthopnea or PND. No chest pain palpitation fever or chills. #Acute exacerbation of heart failure * Admitted to PCU 04/06: Repeat left decubitus chest x-ray ordered to look for drainable left pleural effusion.On Lasix 40 mg IV twice daily. Heart failure core measures including intake and output, fluid restriction less than 1500 mL, daily weight monitoring, kidney and electrolytes monitoring. The echo is ordered. EKG did not show acute change. Patient did not have chest pain or pressure therefore unlikely ACS. 04/07: Left decubitus chest x-ray reviewed. It is layered and looks moderate effusion therefore ultrasound-guided thoracocentesis ordered along with the analytical lab, cultures and cytology tests. Hold Plavix, Lovenox. Discussed with the nursing staff. 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 His blood pressure was 159/64 and heart rate 66 in ED. In the morning blood pressure normal. At one time in the past patient was on clonidine but probably high dose was given by mistake at home therefore patient was admitted with bradycardia, heart rate 30s. Kidney Doppler in 2021 shows stenosis of right-sided s/p renal angioplasty in July 2021. Follow-up renal Doppler did not show any stenosis. No suspicion for Conn syndrome as potassium is normal tonight. When creatinine stabilizes we will consider HCTZ or increasing the dose of losartan 04/07: Blood pressure is better controlled 135/53. Heart rate 72/min. #Normocytic normochromic anemia most likely due to CKD: Hb is 8.6. 04/06: Hemoglobin dropped to 7.7. Platelet count normal 275,000. 04/07: Hemoglobin further dropped to 7.5. MCV and RDW normal. Patient does nothave obvious GI bleed but stool for occult blood and comprehensive anemia work-up ordered. #CKD 3a: Cr is 1.76. This is around his baseline. eGFR is 40. On baseline, albumin creatinine ratio less than 30 mg/g. 04/06: Creatinine went up to 1.84, BUN 38. Enzyme Chemist consulted for CKD and hypertension diuretic management. Urine ordered for protein creatinine ratio. 04/07: Creatinine increased to 1.95. Lasix decreased to 40 mg IV daily and holdthe morning dose for proposed thoracocentesis. As per nursing staff patient hasto be 5 days of Plavix before thoracocentesis. #Type 2 diabetes mellitus: on lantus 14 units daily. ISS. Accuchecks ACHS. #Depression: on sertraline. DVT prophylaxis: lovenox Code status: full code Total time of the visit including total time spent in counseling or coordinationof care, (more than 50% of the total time, spent in obtaining medical information from nurses and other ancillary care providers,explaining to the patient about labs, imaging, diagnosis and management of active complex medical conditions), discussion on different diagnosis to the daughter including CKD, hypertension and heart failure, discussion with the manager corporate strategy and inside wireman, review of labs and imaging is 50 minutes. Laboratory Results 04/06/22 12:36: POC Glucose 181 H 04/06/22 17:02: POC Glucose 200 H 04/06/22 20:48: U Random Total Protein 48.1 H, Urine Creatinine 60.10, Protein/Creatinin Ratio 800 H 04/06/22 23:42: POC Glucose 163 H 04/07/22 06:03: WBC 8.3, RBC 2.61 L, Hgb 7.5 L, Hct 23.3 L, MCV 89.3, MCH 28.7, MCHC 32.2, RDW Std Deviation 46.3 H, RDW Coeff of Cait 14.2, Plt Count 287, MPV 10.5, Immature Gran % (Auto) 0.400, Neut % (Auto) 60.9, Lymph % (Auto) 14.3 L, [place] % (Auto) 15.0 H, Eos % (Auto) 8.6 H, Baso % (Auto) 0.8, Absolute Neuts (auto) 5.1, Absolute Lymphs (auto) 1.19, Nucleated RBC % 0 04/07/22 06:03: Sodium 141, Potassium 3.6, Chloride 106, Carbon Dioxide 29.0, Anion Gap 6, BUN 44 H, Creatinine 1.95 H, Estim Creat Clear Calc 32.06, Est GFR (MDRD) Af Amer 43 L, Est GFR (MDRD) Non-Af 35 L, BUN/Creatinine Ratio 22.6 H, Glucose 122 H, Calcium 8.6 04/07/22 06:37: POC Glucose 131 H Charges/Coding Visit Charges Inpatient E&M: 21181 Subs Hosp L2 04/07/22 1383 <Electronically signed by Adiel Umanzor MD> Cosigner Signature (if applicable): CC: ~ Signed [facility] Work Phone: [phone]) 595-918701-25-[address] Olivia [facility] April 07, 2022 11:38am Note Date/Time April 07, 2022 1 1:38am [facility] Medical Records Department [address] [place] [address] Progress Note - Nephrology 04/07/22 1137 MR#: [id number] Acct: [id number] Name: FRANCISCO THOMAS Rep #:[id number] : 1940 81 From: Elham brady MD PCP: Dr. Jennifer Watt MD Status:ADM IN Location: [place] [address] Subjective Subjective No new events. Objective Data Objective Data Vital Signs: Vital Signs Temp Pulse Resp BP Pulse Ox O2 Del Method O2 Flow Rate 98.2 F 72 18 135/53 H 94 Nasal Cannula 4 04/07/22 09:09 04/07/22 09:09 04/07/22 09:09 04/07/22 09:09 04/07/22 09:09 04/07/22 09:22 04/07/22 09:22 FiO2 4 04/06/22 22:10 Oxygen Flow Rate (L/min) 4 Oxygen Delivery Method Nasal Cannula Weight: 85.9 kg Body Mass Index (BMI) 25.6 Intake & Output: Intake and Output for Last 24 Hours 04/05/22 04/06/22 04/07/22 23:59 23:59 23:59 Intake Total 240 / 240 Output Total 825 / 825 1300 / 1500 700 / 700 Balance -825 / -825 -1060 / -1260 -700 / -700 Lab / Micro Data Result Diagrams: 04/07/22 06:03 04/07/22 06:03 Labs: Laboratory Results - last 24 hr 04/06/22 12:36: POC Glucose 181 H 04/06/22 17:02: POC Glucose 200 H 04/06/22 20:48: U Random Total Protein 48.1 H, Urine Creatinine 60.10, Protein/Creatinin Ratio 800 H 04/06/22 23:42: POC Glucose 163 H 04/07/22 06:03: WBC 8.3, RBC 2.61 L, Hgb 7.5 L, Hct 23.3 L, MCV 89.3, MCH 28.7, MCHC 32.2, RDW Std Deviation 46.3 H, RDW Coeff of Cait 14.2, Plt Count 287, MPV 10.5, Immature Gran % (Auto) 0.400, Neut % (Auto) 60.9, Lymph % (Auto) 14.3 L, [place] % (Auto) 15.0 H, Eos % (Auto) 8.6 H, Baso % (Auto) 0.8, Absolute Neuts (auto) 5.1, Absolute Lymphs (auto) 1.19, Nucleated RBC % 0 04/07/22 06:03: Sodium 141, Potassium 3.6, Chloride 106, Carbon Dioxide 29.0, Anion Gap 6, BUN 44 H, Creatinine 1.95 H, Estim Creat Clear Calc 32.06, Est GFR (MDRD) Af Amer 43 L, Est GFR (MDRD) Non-Af 35 L, BUN/Creatinine Ratio 22.6 H, Glucose 122 H, Calcium 8.6 04/07/22 06:37: POC Glucose 131 H 04/07/22 08:28: Vitamin B12 1661 H 04/07/22 08:28: Iron 14 L, TIBC 208 L, Iron Saturation 6.7 L, Ferritin 166, Lactate Dehydrogenase 127, Total Protein 6.4, Globulin 3.7, Albumin/Globulin Ratio 0.7 L 04/07/22 08:28: Retic Count 1.40, Immature Retic Fraction 19.20 H, Retic Hgb Equivalent 25.3 L Radiography Diagnostic Testing: Radiology Impression Chest X-Ray 04/06/22 15:10 IMPRESSION: Right-sided infiltrate increased and stable moderate left pleural effusion Electronically Signed: Phil Lema MD at 17:57 EST Reading Location ID and State: [address] [place] [address] , Service support , Physical Exam Narrative Alert awake oriented x 3 no obvious distress no pallor no icterus no JVD s1s2 no murmurs lungs clear abdomen soft no organomegaly no edema no cyanosis Assessment & Plan Assessment/Plan (1) Chronic kidney disease (CKD) stage G3a/A1, moderately decreased glomerular filtration rate (GFR) between 45-59 mL/min/1.73 square meter and albuminuria creatinine ratio less than 30 mg/g: PLAN: His creatinine in 2020 was normal/close to normal at 1.0-1.1. Over the last 1 year due to other changes, creatinine values have fluctuated significantly. Baseline creatinine seems to be between 1.3-1.5. Creatinine now is slightly higher, presumably due to diuresis. Urine analysis shows some proteinuria, urine PCR 0.8 not impressive for nephrotic syndrome renal ultrasound without any hydronephrosis. Nearly symmetrical kidneys. Most likely creatinine changes are related to other ongoing events. (2) Hypertension: PLAN: Has been dealing with hypertension for last 1 year. Reviewed records. Renal Doppler from beginning of 2021 showed stenosis on the right side, s/p renal angioplasty on the right side in July 2021. Follow-up renal Doppler did not show any stenosis. I do not have suspicion for Conn syndrome since his potassium is normal to high. It seems he was on Diovan, hydrochlorothiazide, Aldactone at some point in the past and was taken off due to creatinine changes. Currently he is on losartan 25 mg once a day, amlodipine 5 mg once a day, Coreg 25 mg twice a day, hydralazine 3 times a day,alpha blockers. He was prescribed Clonidine, developedbradycardia. There was a question if a higher than recommended dose was given. Heart rate is around 65. ;asix cut down to once a day for now Scheduled for thoracocentesis Continue same medications Blood pressure is acceptable today 04/07/22 1138 <Electronically signed by Elham Olivia MD> Cosigner Signature (if applicable): CC: ~ Signed [facility] Work Phone: 1(874) 568-136701-25-[address] Lucero [facility] April 07, 2022 7:27am Note Date/Time April 07, 2022 7 :26am [facility] Medical Records Department [address] [place] [address] Progress Note - Cardiology 04/07/22 0725 MR#: [id number] Acct: [id number] Name: FRANCISCO THOMAS Rep #:[id number] : 1940 81 From: [place] MD PCP: Dr. Jennifer Watt MD Status:ADM IN Location: [place] [address] Subjective Subjective The patient was seen and evaluated. Appears to be breathing better. Objective Data Vital Signs: Vital Signs Temp Pulse Resp BP Pulse Ox O2 Del Method O2 Flow Rate 97.6 F L 62 16 130/58 H 95 Bi-pap 4 04/07/22 05:00 04/07/22 06:16 04/07/22 05:00 04/07/22 06:16 04/07/22 05:00 04/07/22 05:00 04/07/22 05:00 FiO2 4 04/06/22 22:10 Oxygen Flow Rate (L/min) 4 Oxygen Delivery Method Bi-pap Weight: 189 lb 6.033 oz Body Mass Index (BMI) 25.6 Intake & Output: Intake and Output for Last 24 Hours 04/05/22 04/06/22 04/07/22 23:59 23:59 23:59 Intake Total 240 / 240 Output Total 825 / 825 1300 / 1500 700 / 700 Balance -825 / -825 -1060 / -1260 -700 / -700 Lab / Micro Data Result Diagrams: 04/07/22 06:03 04/07/22 06:03 Labs: Laboratory Results - last 24 hr 04/06/22 12:36: POC Glucose 181 H 04/06/22 17:02: POC Glucose 200 H 04/06/22 20:48: U Random Total Protein 48.1 H, Urine Creatinine 60.10, Protein/Creatinin Ratio 800 H 04/06/22 23:42: POC Glucose 163 H 04/07/22 06:03: WBC 8.3, RBC 2.61 L, Hgb 7.5 L, Hct 23.3 L, MCV 89.3, MCH 28.7, MCHC 32.2, RDW Std Deviation 46.3 H, RDW Coeff of Cait 14.2, Plt Count 287, MPV 10.5, Immature Gran % (Auto) 0.400, Neut % (Auto) 60.9, Lymph % (Auto) 14.3 L, [place] % (Auto) 15.0 H, Eos % (Auto) 8.6 H, Baso % (Auto) 0.8, Absolute Neuts (auto) 5.1, Absolute Lymphs (auto) 1.19, Nucleated RBC % 0 04/07/22 06:03: Sodium 141, Potassium 3.6, Chloride 106, Carbon Dioxide 29.0, Anion Gap 6, BUN 44 H, Creatinine 1.95 H, Estim Creat Clear Calc 32.06, Est GFR (MDRD) Af Amer 43 L, Est GFR (MDRD) Non-Af 35 L, BUN/Creatinine Ratio 22.6 H, Glucose 122 H, Calcium 8.6 04/07/22 06:37: POC Glucose 131 H Cardiology Labs/Tests 04/07/22 06:03: WBC 8.3, RBC 2.61 L, Hgb 7.5 L, Hct 23.3 L, MCV 89.3, MCH 28.7, MCHC 32.2, Plt Count 287, MPV 10.5, Immature Gran % (Auto) 0.400, Neut % (Auto) 60.9, Lymph % (Auto) 14.3 L, [place] % (Auto) 15.0 H, Eos % (Auto) 8.6 H, Baso % (Auto) 0.8, Absolute Neuts (auto) 5.1, Nucleated RBC % 0 04/07/22 06:03: Sodium 141, Potassium 3.6, Chloride 106, Carbon Dioxide 29.0, Anion Gap 6, BUN 44 H, Creatinine 1.95 H, Est GFR (MDRD) Af Amer 43 L, Est GFR (MDRD) Non-Af 35 L, BUN/Creatinine Ratio 22.6 H, Glucose 122 H, Calcium 8.6 Rhythm: EKG: ECHO: Stress Test: Cardiac Cath: PCI: CT Surgery: Holter monitor: EPS: PPM: CXR: Chest CT Scan: Radiography Diagnostic Testing: Radiology Impression Chest X-Ray 04/06/22 15:10 IMPRESSION: Right-sided infiltrate increased and stable moderate left pleural effusion Electronically Signed: Phil Lema MD at 17:57 EST Reading Location ID and State: [address] [place] [address] , Service support , Physical Exam Const alert, oriented x3 and no apparent distress General Appearance: cooperative HEENT hearing grossly normal bilaterally Head and Scalp: atraumatic Eyes EOMs intact bilaterally Neck General: normal visual inspection Chest inspection of chest normal and palpation of chest normal Resp normal respiratory effort Auscultation: diminished lung sounds Cardio regular rate, regular rhythm, S1 normal heart sound and S2 normal heart sound Jugular Venous Distention: JVD GI normal to inspection, nondistended, normoactive bowel sounds Extremity normal capillary refill General Extremity: edema Peripheral Pulses: Yes pulses 2+ throughout and femoral pulses present Skin no rashes or lesions noted Neuro oriented x3 and CN's II-XII intact bilaterally Psych Appearance: grossly normal and appropriate Assessment & Plan Assessment/Plan (1) Congestive heart failure: PLAN: He does have evidence of diastolic heart failure. His estimated ejection fraction is noted to be preserved with mitral calcification and moderate pulmonary hypertension. My suspicion is that his severe anemia is contributing to some of his symptomatology. We will continue with diuresis watching his renal function. (2) Pleural effusion on left: PLAN: He does have evidence of left pleural effusion. He should be considered for thoracentesis to help with symptomatic improvement in his breathing. (3) Hypertension: PLAN: Blood pressure is better controlled at this time. He has had a renal artery stent placed and the plan to be to continue his current medical therapy. I will recommend that we increase his amlodipine to 10 mg a day. (4) Coronary artery disease: PLAN: He does have minimal coronary artery disease. He has not had any documented stress test or cardiac catheterization which has demonstrated severe obstruction. Depending on the findings further recommendations will be made. * Will likely consider pharmacologic stress test prior to discharge Thank you for allowing me to participate in the care of your patient. Please don't hesitate to call if any issues arise. 04/07/22726 <Electronically signed by [place] MD> Cosigner Signature (if applicable): CC: ~ Signed [facility] Work Phone: 1(220) 794-497501-24-[address] Umanzor [facility] April 06, 2022 3:11pm Note Date/Time April 06, 2022 7 :50am [facility] Medical Records Department [address] [place] [address] Progress Note - Hospitalist 04/06/2248 MR#: [id number] Acct: [id number] Name: FRANCISCO THOMAS Rep #:[id number] : 1940 81 From: Adiel Lee PCP: Dr. Jennifer Watt MD Status:ADM IN Location: [place] [address] Subjective Subjective Follow-up for heart failure exacerbation, left pleural effusion Objective Data Objective Data Vital Signs: Vital Signs Temp Pulse Resp BP Pulse Ox O2 Del Method O2 Flow Rate 97.8 F 60 16 142/55 H 92 Bi-pap 3 04/06/22 04:12 04/06/22 06:10 04/06/22 04:12 04/06/22 06:10 04/06/22 04:12 04/06/22 04:12 04/05/22 23:00 Oxygen Flow Rate (L/min) 3 Oxygen Delivery Method Bi-pap Weight: 189 lb 6.033 oz Body Mass Index (BMI) 25.6 Intake & Output: Intake and Output for Last 24 Hours 04/04/22 04/05/22 04/06/22 23:59 23:59 23:59 Output Total 825 / 825 650 / 650 Balance -825 / -825 -650 / -650 Lab / Micro Data Result Diagrams: 04/06/22 04:33 04/06/22 04:33 Labs: Laboratory Results - last 24 hr 04/05/22 13:15: WBC 9.0, RBC 3.07 L, Hgb 8.6 L, Hct 27.4 L, MCV 89.3, MCH 28.0, MCHC 31.4 L, RDW Std Deviation 46.4 H, RDW Coeff of Cait 14.4, Plt Count 289, MPV10.4, Immature Gran % (Auto) 0.100, Neut % (Auto) 69.3, Lymph % (Auto) 10.3 L, [place] % (Auto) 14.2 H, Eos % (Auto) 5.4 H, Baso % (Auto) 0.7, Absolute Neuts (auto) 6.2, Absolute Lymphs (auto) 0.93, Nucleated RBC % 0 04/05/22 13:15: Sodium 139, Potassium 3.8, Chloride 107, Carbon Dioxide 24.0, Anion Gap 8, BUN 35 H, Creatinine 1.76 H, Estim Creat Clear Calc 35.52, Est GFR (MDRD) Af Amer 48 L, Est GFR (MDRD) Non-Af 40 L, BUN/Creatinine Ratio 19.9, Glucose 136 H, Calcium 9.0, Troponin I High Sens 10 04/05/22 13:15: Lactic Acid 1.0 04/05/22 13:15: B-Natriuretic Peptide 282.1 H 04/05/22 15:34: Troponin I High Sens 11 04/05/22 20:30: Troponin I High Sens 11 04/05/22 21:31: POC Glucose 231 H 04/06/22 04:33: WBC 7.6, RBC 2.64 L, Hgb 7.7 L, Hct 23.6 L, MCV 89.4, MCH 29.2, MCHC 32.6, RDW Std Deviation 46.9 H, RDW Coeff of Cait 14.3, Plt Count 275, MPV 10.7, Immature Gran % (Auto) 0.300, Neut % (Auto) 61.1, Lymph % (Auto) 13.8 L, [place] % (Auto) 15.2 H, Eos % (Auto) 8.7 H, Baso % (Auto) 0.9, Absolute Neuts (auto) 4.6, Absolute Lymphs (auto) 1.05, Nucleated RBC % 0 04/06/22 04:33: Sodium 140, Potassium 3.3 L, Chloride 105, Carbon Dioxide 27.0, Anion Gap 8, BUN 38 H, Creatinine 1.84 H, Estim Creat Clear Calc 33.97, Est GFR (MDRD) Af Amer 45 L, Est GFR (MDRD) Non-Af 38 L, BUN/Creatinine Ratio 20.7 H, Glucose 121 H, Calcium 8.5 04/06/22 06:54: POC Glucose 122 H Physical Exam Narrative Seen and examined. Physical exam General: Alert, Oriented x3, Cooperative HEENT: Atraumatic, PERRLA, EOMI, Normocephalic Oral: Oral mucosa moist. No Gingival or Mucosal Lesions/ Ulcerations Neck: Supple, No JVD, Negative Carotid Bruits Lungs: Air entry diminished more in the left lung base, left pleural effusion. Mild expiratory rhonchi. Cardiovascular: Sinus rhythm normal S1, Normal S2, systolic murmur over LLSB andcardiac apex Abdomen: Bowel Sounds Present, Soft, Non Tender, Non-Distended : No renal angle tenderness. No suprapubic tenderness. Extremities: Bilateral pedal pitting edema, 2+. Capillary Refill Less than 3 Seconds Skin: No rashes, No breakdown Musculoskeletal: No Tenderness to Palpation of Joints or Extremities, ROM intact. Neurological: Cranial nerves II-XII grossly intact, DTR 2+/4 and Symmetrical, Neuro grossly intact Psych/Mental Status: Normal Affect, Appropriate. Assessment & Plan Assessment/Plan (1) Congestive heart failure: (2) Pleural effusion on left: PLAN: Plan This is 81-year-old gentleman who was admitted for shortness of breath for 2 weeks with no orthopnea or PND. No chest pain palpitation fever or chills. #Acute exacerbation of heart failure * Admitted to PCU 04/06: Repeat left decubitus chest x-ray ordered to look for drainable left pleural effusion.On Lasix 40 mg IV twice daily. Heart failure core measures including intake and output, fluid restriction less than 1500 mL, daily weight monitoring, kidney and electrolytes monitoring. The echo is ordered. EKG did not show acute change. Patient did not have chest pain or pressure therefore unlikely ACS. 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 His blood pressure was 159/64 and heart rate 66 in ED. In the morning blood pressure normal. At one time in the past patient was on clonidine but probably high dose was given by mistake at home therefore patient was admitted with bradycardia, heart rate 30s. Kidney Doppler in 2021 shows stenosis of right-sided s/p renal angioplasty in July 2021. Follow-up renal Doppler did not show any stenosis. No suspicion for Conn syndrome as potassium is normal tonight. When creatinine stabilizes we will consider HCTZ or increasing the dose of losartan #Anemia: Hb is 8.6. 04/06: Hemoglobin dropped to 7.7. Platelet count normal 275,000. #CKD 3a: Cr is 1.76. This is around his baseline. eGFR is 40. On baseline, albumin creatinine ratio less than 30 mg/g. 04/06: Creatinine went up to 1.84, BUN 38. Enzyme Chemist consulted for CKD and hypertension diuretic management. Urine ordered for protein creatinine ratio. #Type 2 diabetes mellitus: on lantus 14 units daily. ISS. Accuchecks ACHS. #Depression: on sertraline. DVT prophylaxis: lovenox Code status: full code Total time of the visit including total time spent in counseling or coordinationof care, (more than 50% of the total time, spent in obtaining medical information from nurses and other ancillary care providers,explaining to the patient aboutlabs, imaging, diagnosis and management of active complex medical conditions), discussion on different diagnosis to the daughter including CKD, hypertension and heart failure, discussion with the manager corporate strategy and inside wireman, review of labs and imaging is 50 minutes. Laboratory Results 04/05/22 15:34: Troponin I High Sens 11 04/05/22 20:30: Troponin I High Sens 11 04/05/22 21:31: POC Glucose 231 H 04/06/22 04:33: WBC 7.6, RBC 2.64 L, Hgb 7.7 L, Hct 23.6 L, MCV 89.4, MCH 29.2, MCHC 32.6, RDW Std Deviation 46.9 H, RDW Coeff of Cait 14.3, Plt Count 275, MPV 10.7, Immature Gran % (Auto) 0.300, Neut % (Auto) 61.1, Lymph % (Auto) 13.8 L, [place] % (Auto) 15.2 H, Eos % (Auto) 8.7 H, Baso % (Auto) 0.9, Absolute Neuts (auto) 4.6, Absolute Lymphs (auto) 1.05, Nucleated RBC % 0 04/06/22 04:33: Sodium 140, Potassium 3.3 L, Chloride 105, Carbon Dioxide 27.0, Anion Gap 8, BUN 38 H, Creatinine 1.84 H, Estim Creat Clear Calc 33.97, Est GFR (MDRD) Af Amer 45 L, Est GFR (MDRD) Non-Af 38 L, BUN/Creatinine Ratio 20.7 H, Glucose 121 H, Calcium 8.5 04/06/22 06:54: POC Glucose 122 H 04/06/22 12:36: POC Glucose 181 H Charges/Coding Visit Charges Inpatient E&M: 53166 Subs Hosp L3 04/06/22 1504 <Electronically signed by Adiel Umanzor MD> Cosigner Signature (if applicable): CC: ~ Signed ADDENDUM by Dr. Adiel Umanzor MD on 04/06/22 at 1511 Addendum Correction: Patient has left-sided weakness due to previous stroke. Left upper extremity with contracture at elbow and shoulder joint. Left lower leg muscle strength 4/5. 04/06/22 1511<Electronically signed by Adiel Umanzor MD> Cosigner Signature (if applicable): cc: ~* Signed [facility] Work Phone: 1(775) 979-653801-24-2023 History and physical note Author Dr. Meyer [facility] April 06, 2022 2:03pm Note Date/Time April 05, 2022 6 :18pm [facility] Medical Records Department [address] [place] [address] H&P Exam - Hospitalist 04/05/22 1816 MR#: [id number] Acct: [id number] Name: FRANCISCO THOMAS Rep #:[id number] : 1940 81 From: Jessica Meyer MD PCP: Dr. Jennifer Watt MD Status:ADM IN Location: [place] [address] HPI - General General Date of Admission: 04/05/22 Date of Service: 04/05/22 Chief Complaint: shortness of breath. HPI Narrative FRANCISCO THOMAS, is a 81 M with a PMH as outlined who presents via the ED on 04/05/2022 with a complaint of shortness of breath which have been going on for about 2 days prior to admission. He denied any fever, chills, cough or chest pain or palpitations. He denid any orthopnea or PND, but admitted to lower extremity swelling. his symptoms hadnt been improving, so they came in to the ED. according to his , she was not aware of patient having heart failure though patient says he used to be on spironolactone but is not clear what it wasfor. Review of systems otherwise negative. Vitals in the ED were blood pressure 159/64, pulse rate of 66, respiratory rate of 19 and temperature of 97.9 Fahrenheit. He was saturating at 95% on 2 L of oxygen. CBC showed hemoglobin of 8.6 and WBC of 9 with platelets of 289. Chemistry showed sodium of 139 with potassium of 3.8 and creatinine of 1.76. BNPwas 282.1. He is being admitted to be managed for acute exacerbation of heart failure. [facility] Medical History Absent pedal pulses Acute left-sided muscle weakness Depression Dysphagia Essential hypertension Facial droop due to acute stroke History of CVA (cerebrovascular accident) (12/2020) Hydrocele in adult Hyperlipidemia Incontinence Limb weakness Normocytic normochromic anemia Osteoarthritis Peripheral vascular occlusive disease Pneumonia Proteinuria due to type 2 diabetes mellitus Recurrent inguinal hernia of right side without obstruction or gangrene Restless legs Right pontine CVA Right renal artery stenosis Skin lesion of face SOB (shortness of breath) Type 2 diabetes mellitus Unsteadiness Ventricular tachycardia seen on handtools repairer (02/20/21) Home Medications multivitamin,[id number] (Complete Multivitamin tablet) 1 tab PO QDAY supplement 03/03/17 [History Last Taken 02/23/22] aspirin 81 mg chewable tablet 81 mg PO BREAKFAST heart health 01/02/21 [History Last Taken 02/24/22] Handicap Placard #1 ea 02/12/21 [Rx Last Taken Unknown] pen needle, diabetic 32 gauge x 5/32 (BD Sanaz 2nd Gen Pen Needle) #50 ea 06/02/21 [Rx Last Taken Unknown] carvedilol 25 mg tablet 25 mg PO BID heart 02/24/22 [History Last Taken 02/24/22] clopidogrel 75 mg tablet (Plavix) 75 mg PO DAILY blood thinner 02/24/22 [History Last Taken 02/23/22] doxazosin 8 mg tablet 8 mg PO QHS bph 02/24/22 [History Last Taken 02/23/22] ezetimibe 10 mg tablet (Zetia) 10 mg PO QHS cholesterol 02/24/22 [History Last Taken 02/23/22] ferrous sulfate 325 mg (65 mg iron) capsule,extended release 65 mg PO DAILY supplement 02/24/22 [History Last Taken 02/23/22] latanoprost 0.005 % eye drops 1 drp EACH EYE HS eyes 02/24/22 [History Last Taken 02/23/22] pramipexole 0.125 mg tablet 0.125 mg PO QHS parkinsons 02/24/22 [History Last Taken 02/23/22] sertraline 50 mg tablet 50 mg PO DAILY mood 02/24/22 [History Last Taken 02/24/22] sennosides 8.6 mg-docusate sodium 50 mg tablet (Stool Softener-Stimulant Laxative) 2 tab PO BID PRN PRN Constipation #0 tabs 02/27/22 [Rx Last Taken Unknown] acetaminophen 500 mg tablet 1,000 mg PO Q6H PRN PRN Pain Score 1-10 #0 tabs 03/09/22 [Rx Last Taken Unknown] amlodipine 5 mg tablet 5 mg PO DAILY 30 days #30 tabs 03/09/22 [Rx Last Taken Unknown] insulin lispro 100 unit/mL subcutaneous pen (Humalog KwikPen (U-100) Insulin) 5 unit subcut TIDAC 03/17/22 [History Last Taken Unknown] melatonin 10 mg sublingual tablet 10 mg PO QHS 03/17/22 [History Last Taken Unknown] gabapentin 100 mg capsule 100 mg PO BID pain #180 caps 03/18/22 [Rx Last Taken Unknown] gabapentin 300 mg capsule 300 mg PO 2100 pain #90 caps 03/18/22 [Rx Last Taken Unknown] losartan 25 mg tablet 25 mg PO DAILY 30 days #90 tabs 03/18/22 [Rx Last Taken Unknown] hydralazine 25 mg tablet 75 mg PO TID 30 days #270 tabs 03/25/22 [Rx Last Taken Unknown] hydrochlorothiazide 25 mg tablet 25 mg PO DAILY 04/05/22 [History Last Taken Unknown] insulin glargine-yfgn 100 unit/mL (3 mL) subcutaneous pen 14 unit subcut DAILY 04/05/22 [History Last Taken Unknown] Allergy/AdvReac Type Severity Reaction Status Date / Time meloxicam [From Mobic] Allergy Intermediate itching Verified 04/05/22 12:08 pravastatin [From Pravachol] AdvReac Mild myalgia Verified 04/05/22 12:08 cholestyramine AdvReac hypoglycemi Verified 04/05/22 12:08 a Family History Mother Hypertension Cancer Father Heart disease Diabetes Surgical History History of cataract surgery History of herniorrhaphy History of lumbar laminectomy History of stent insertion of renal artery (08/05/21) Status post laser cataract surgery of left eye Social History household members: spouse and other details: Abigail is his 's name housing: house number of children: 2 current occupational status: retired and other details: worked for [employer] prior to retiring leisure activities: other Smoking Status: Never smoker Electronic Cigarette Use: not used alcohol intake: former substance use type: does not use what type of physical activity do you participate in: walking frequency: 1-2 times per week ROS Review of Systems ROS Unobtainable: Denies due to encephalopathy Constitutional Constitutional: Reports fatigue and weakness; Denies anorexia, chills or fever(s) Eyes Eyes: Denies change in vision ENT HEENT: Reports epistaxis; Denies abnormal hearing, hearing loss, nasal congestion, sinus pressure or sore throat Cardiovascular Cardiovascular: Reports dyspnea on exertion and edema; Denies chest pain, lightheadedness, orthopnea, palpitations, paroxysmal nocturnal dyspnea, rapid heart rate or syncope Respiratory/Chest Respiratory/Chest: Reports dyspnea, shortness of breath at rest and shortness ofbreath with exertion; Denies cough, excessive phlegm production, hemoptysis, productive cough or wheezing Gastrointestinal Gastrointestinal: Denies abdominal pain, constipation, diarrhea, dyspepsia, nausea or vomiting Genitourinary Genitourinary: Denies burning urination, dysuria or urinary urgency Musculoskeletal Musculoskeletal: Denies arthralgias or joint pain Neurologic Neurologic: Denies confusion, dizziness, focal weakness or headache(s) Psychiatric Psychiatric: Denies anxiety or depression Hematologic/Lymphatic Hematologic/Lymphatic: Denies anemia Vital Signs Vital Signs Vital Signs: 04/05/22 12:10 04/05/22 12:28 04/05/22 12:29 Temperature 98.4 F Temperature Source Temporal Pulse Rate 63 66 Respiratory Rate 19 H 18 Respiratory Effort Normal Non-Labored Respiratory Depth Normal Respiratory Pattern Normal Blood Pressure 149/52 H 140/75 H Blood Pressure Mean 84 96 Pulse Ox 93 93 Oxygen Delivery Method Room Air Nasal Cannula Oxygen Flow Rate (L/min) 2 04/05/22 13:23 04/05/22 14:43 04/05/22 16:29 Temperature 98.4 F 97.9 F Temperature Source Oral Temporal Pulse Rate 66 67 66 Respiratory Rate 20 H 16 19 H Respiratory Effort Respiratory Depth Respiratory Pattern Blood Pressure 147/60 H 154/63 H 159/64 H Blood Pressure Mean 89 93 95 Pulse Ox 92 95 95 Oxygen Delivery Method Nasal Cannula Nasal Cannula Nasal Cannula Oxygen Flow Rate (L/min) 2 2 2 Weight Weight: 190 lb Body Mass Index (BMI) 25.7 Physical Exam Const alert, oriented x3 and no apparent distress General Appearance: cooperative HEENT normocephalic, head/scalp atraumatic, hearing grossly normal bilaterally and moist oral mucous membranes Mouth: oral and palatal mucosa normal Eyes PERRL and EOMs intact bilaterally Neck no lymphadenopathy and supple Resp Resp Narrative: mildly diminished breath sounds bibasally, no wheezes or crackles. On 2l of oxygen by nasal canula Cardio regular rate, regular rhythm, S1 normal heart sound, S2 normal heart sound and no murmurs GI normal to inspection, nondistended, normoactive bowel sounds, soft to palpation,non-tender and non-distended Extremity normal to inspection and full ROM Extremity Narrative: bilateral 2+ lower extremity pitting edema Neuro oriented x3 and moves all extremities Motor Exam: strength 5/5 throughout Psych affect normal Results Lab / Micro Data Result Diagrams: 04/05/22 13:15 04/05/22 13:15 Labs: Laboratory Results - last 24 hr 04/05/22 13:15: WBC 9.0, RBC 3.07 L, Hgb 8.6 L, Hct 27.4 L, MCV 89.3, MCH 28.0, MCHC 31.4 L, RDW Std Deviation 46.4 H, RDW Coeff of Cait 14.4, Plt Count 289, MPV10.4, Immature Gran % (Auto) 0.100, Neut % (Auto) 69.3, Lymph % (Auto) 10.3 L, [place] % (Auto) 14.2 H, Eos % (Auto) 5.4 H, Baso % (Auto) 0.7, Absolute Neuts (auto) 6.2, Absolute Lymphs (auto) 0.93, Nucleated RBC % 0 04/05/22 13:15: Sodium 139, Potassium 3.8, Chloride 107, Carbon Dioxide 24.0, Anion Gap 8, BUN 35 H, Creatinine 1.76 H, Estim Creat Clear Calc 35.52, Est GFR (MDRD) Af Amer 48 L, Est GFR (MDRD) Non-Af 40 L, BUN/Creatinine Ratio 19.9, Glucose 136 H, Calcium 9.0, Troponin I High Sens 10 04/05/22 13:15: Lactic Acid 1.0 04/05/22 13:15: B-Natriuretic Peptide 282.1 H 04/05/22 15:34: Troponin I High Sens 11 Assessment & Plan Assessment/Plan (1) Congestive heart failure: (2) Pleural effusion on left: PLAN: Plan #Acute exacerbation of heart failure * admit to PCU * CXR showed large left subpulmonic fluid with compressive atelectasis of lower lobe, and interval clearing of interstitial pneumonitis in the upper lobes and right lower lobe * diurese with IV lasix 40mg bid * monitor intake and output * fluid restriction to 1500cc daily * cardiology consulted from ER * 2D echo ordered * EKG showed no acute ST changes * #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 This is around his baseline. Will trend and monitor. Likely due to CKD. #CKD 3B: Cr is 1.76. This is around his baseline. eGFR is 40. This is around hisbaseline. Will monitor. #Type 2 diabetes mellitus: on lantus 14 units daily. ISS. Accuchecks ACHS. #Depression: on sertraline. DVT prophylaxis: lovenox Code status: full code * Patient and counseled extensively about different types of CODE STATUS i ncluding full code, DNR CCA and DNR CCA. Patient elects to be full code. * Total uycj-il-vdfg time 17 minutes. Charges/Coding Visit Charges Inpatient E&M: 48597 Init Hosp L3 Procedures Hospitalists Procedures: 56661 Advncd Care Plan 30 Min 04/06/22 1403 <Electronically signed by Jessica Meyer MD> Cosigner Signature (if applicable): CC: Dr. Jennifer Watt MD; Dr. Jessica Meyer MD~ Signed [facility] Work Phone: [phone]) 996-470901-24-[address] Olviia [facility] April 06, 2022 11:18am Note Date/Time April 06, 2022 1 1:14am [facility] Medical Records Department [address] [place] [id number] Consultation - Nephrology 04/06/22 1111 MR#: [id number] Acct: [id number] Name: FRANCISCO THOMAS Rep #:[id number] : 1940 81 From: Elham brady MD PCP: Dr. Jennifer Watt MD Status:ADM IN Location: [place] [address] Assessment & Plan Assessment/Plan (1) Chronic kidney disease (CKD) stage G3a/A1, moderately decreased glomerular filtration rate (GFR) between 45-59 mL/min/1.73 square meter and albuminuria creatinine ratio less than 30 mg/g: PLAN: His creatinine in 2020 was normal/close to normal at 1.0-1.1. Over the last 1 year due to other changes, creatinine values have fluctuated significantly. Baseline creatinine seems to be between 1.3-1.5. Creatinine nowis slightly higher, presumably due to diuresis. Urine analysis shows some proteinuria we will send for quantification renal ultrasound without any hydronephrosis. Nearly symmetrical kidneys. Most likely creatinine changes are related to other ongoing events. (2) Hypertension: PLAN: Has been dealing with hypertension for last 1 year. Reviewed records. Renal Doppler from beginning of 2021 showed stenosis on the right side, s/p renal angioplasty on the right side in July 2021. Follow-up renal Doppler did not show any stenosis. I do not have suspicion for Conn syndrome since his potassium is normal to high. It seems he was on Diovan, hydrochlorothiazide, Aldactone at some point in the past and was taken off due to creatinine changes. Currently he is on losartan 25 mg once a day, amlodipine 5 mg once a day, Coreg 25 mg twice a day, hydralazine 3 times a day,alpha blockers. He was prescribed Clonidine, developed bradycardia. There was a question if a higher than recommended dose was given. Heart rate is around 65. I think he needs to go back on some form of diuretics. Currently is on Lasix 40twice a day. BNP is only about 250, chest x-ray shows left-sided effusion. Will reevaluate tomorrow. Discussed with Dr. Umanzor. Might need a pleural tap tomorrow Will add chlorthalidone at the time of discharge. Once creatinine stabilizes, will increase losartan. HPI Consult Data Date of Consult: 04/06/22 HPI Narrative Reason for Consultation: Hypertension, CKD 3B HPI Narrative: FRANCISCO THOMAS, is a 81 M who presents the hospital with shortness of breath. Nephrology on consultation in view of hypertension. Has been dealing with bloodpressure issues over the last 1 year. Saw cardiology here and hypertension specialty in [facility]. Hospitalized here in February with what looks like aspiration pneumonia, suspected fluid overload. Has been on various different combinations of medications. Current medication list listed as below. Does not use oxygen at home much. Currently on oxygen. Being treated for suspected congestive heart failure. Blood pressure is acceptable. [facility] Medical History Absent pedal pulses Acute left-sided muscle weakness Depression Dysphagia Essential hypertension Facial droop due to acute stroke History of CVA (cerebrovascular accident) (12/2020) Hydrocele in adult Hyperlipidemia Incontinence Limb weakness Normocytic normochromic anemia Osteoarthritis Peripheral vascular occlusive disease Pneumonia Proteinuria due to type 2 diabetes mellitus Recurrent inguinal hernia of right side without obstruction or gangrene Restless legs Right pontine CVA Right renal artery stenosis Skin lesion of face SOB (shortness of breath) Type 2 diabetes mellitus Unsteadiness Ventricular tachycardia seen on handtools repairer (02/20/21) Home Medications multivitamin,mn-fhya-ieuhwryz (Complete Multivitamin tablet) 1 tab PO QDAY supplement 03/03/17 [History Last Taken 02/23/22] aspirin 81 mg chewable tablet 81 mg PO BREAKFAST heart health 01/02/21 [History Last Taken 02/24/22] Handicap Placard #1 ea 02/12/21 [Rx Last Taken Unknown] pen needle, diabetic 32 gauge x /32 (BD Sanaz 2nd Gen Pen Needle) #50 ea 06/02/21 [Rx Last Taken Unknown] carvedilol 25 mg tablet 25 mg PO BID heart 02/24/22 [History Last Taken 02/24/22] clopidogrel 75 mg tablet (Plavix) 75 mg PO DAILY blood thinner 02/24/22 [History Last Taken 02/23/22] doxazosin 8 mg tablet 8 mg PO QHS bph 02/24/22 [History Last Taken 02/23/22] ezetimibe 10 mg tablet (Zetia) 10 mg PO QHS cholesterol 02/24/22 [History Last Taken 02/23/22] ferrous sulfate 325 mg (65 mg iron) capsule,extended release 65 mg PO DAILY supplement 02/24/22 [History Last Taken 02/23/22] latanoprost 0.005 % eye drops 1 drp EACH EYE HS eyes 02/24/22 [History Last Taken 02/23/22] pramipexole 0.125 mg tablet 0.125 mg PO QHS parkinsons 02/24/22 [History Last Taken 02/23/22] sertraline 50 mg tablet 50 mg PO DAILY mood 02/24/22 [History Last Taken 02/24/22] sennosides 8.6 mg-docusate sodium 50 mg tablet (Stool Softener-Stimulant Laxative) 2 tab PO BID PRN PRN Constipation #0 tabs 02/27/22 [Rx Last Taken Unknown] acetaminophen 500 mg tablet 1,000 mg PO Q6H PRN PRN Pain Score 1-10 #0 tabs 03/09/22 [Rx Last Taken Unknown] amlodipine 5 mg tablet 5 mg PO DAILY 30 days #30 tabs 03/09/22 [Rx Last Taken Unknown] insulin lispro 100 unit/mL subcutaneous pen (Humalog KwikPen (U-100) Insulin) 5 unit subcut TIDAC PRN sugar 03/17/22 [History Last Taken Unknown] gabapentin 100 mg capsule 100 mg PO BID pain #180 caps 03/18/22 [Rx Last Taken Unknown] gabapentin 300 mg capsule 300 mg PO 2100 pain #90 caps 03/18/22 [Rx Last Taken Unknown] losartan 25 mg tablet 25 mg PO DAILY 30 days #90 tabs 03/18/22 [Rx Last Taken Unknown] hydralazine 25 mg tablet 75 mg PO TID 30 days #270 tabs 03/25/22 [Rx Last Taken Unknown] hydrochlorothiazide 25 mg tablet 25 mg PO DAILY 04/05/22 [History Last Taken Unknown] insulin glargine-yfgn 100 unit/mL (3 mL) subcutaneous pen 14 unit subcut DAILY 04/05/22 [History Last Taken Unknown] Allergy/AdvReac Type Severity Reaction Status Date / Time meloxicam [From Mobic] Allergy Intermediate itching Verified 04/05/22 12:08 pravastatin [From Pravachol] AdvReac Mild myalgia Verified 04/05/22 12:08 cholestyramine AdvReac hypoglycemi Verified 04/05/22 12:08 a Family History Mother Hypertension Cancer Father Heart disease Diabetes Surgical History History of cataract surgery History of herniorrhaphy History of lumbar laminectomy History of stent insertion of renal artery (08/05/21) Status post laser cataract surgery of left eye Social History household members: spouse and other details: Abigail is his 's name housing: house number of children: 2 current occupational status: retired and other details: worked for [employer] prior to retiring leisure activities: other Smoking Status: Never smoker Electronic Cigarette Use: not used alcohol intake: former substance use type: does not use what type of physical activity do you participate in: walking frequency: 1-2 times per week ROS ROS Narrative Negative except above Physical Exam Narrative Alert awake oriented x 3 no obvious distress no pallor no icterus no JVD s1s2 no murmurs lungs clear abdomen soft no organomegaly no edema no cyanosis Lab / Micro Data Result Diagrams: 04/06/22 04:33 04/06/22 04:33 Labs: Laboratory Results - last 24 hr 04/05/22 13:15: WBC 9.0, RBC 3.07 L, Hgb 8.6 L, Hct 27.4 L, MCV 89.3, MCH 28.0, MCHC 31.4 L, RDW Std Deviation 46.4 H, RDW Coeff of Cait 14.4, Plt Count 289, MPV10.4, Immature Gran % (Auto) 0.100, Neut % (Auto) 69.3, Lymph % (Auto) 10.3 L, [place] % (Auto) 14.2 H, Eos % (Auto) 5.4 H, Baso % (Auto) 0.7, Absolute Neuts (auto) 6.2, Absolute Lymphs (auto) 0.93, Nucleated RBC % 0 04/05/22 13:15: Sodium 139, Potassium 3.8, Chloride 107, Carbon Dioxide 24.0, Anion Gap 8, BUN 35 H, Creatinine 1.76 H, Estim Creat Clear Calc 35.52, Est GFR (MDRD) Af Amer 48 L, Est GFR (MDRD) Non-Af 40 L, BUN/Creatinine Ratio 19.9, Glucose 136 H, Calcium 9.0, Troponin I High Sens 10 04/05/22 13:15: Lactic Acid 1.0 04/05/22 13:15: B-Natriuretic Peptide 282.1 H 04/05/22 15:34: Troponin I High Sens 11 04/05/22 20:30: Troponin I High Sens 11 04/05/22 21:31: POC Glucose 231 H 04/06/22 04:33: WBC 7.6, RBC 2.64 L, Hgb 7.7 L, Hct 23.6 L, MCV 89.4, MCH 29.2, MCHC 32.6, RDW Std Deviation 46.9 H, RDW Coeff of Cait 14.3, Plt Count 275, MPV 10.7, Immature Gran % (Auto) 0.300, Neut % (Auto) 61.1, Lymph % (Auto) 13.8 L, [place] % (Auto) 15.2 H, Eos % (Auto) 8.7 H, Baso % (Auto) 0.9, Absolute Neuts (auto) 4.6, Absolute Lymphs (auto) 1.05, Nucleated RBC % 0 04/06/22 04:33: Sodium 140, Potassium 3.3 L, Chloride 105, Carbon Dioxide 27.0, Anion Gap 8, BUN 38 H, Creatinine 1.84 H, Estim Creat Clear Calc 33.97, Est GFR (MDRD) Af Amer 45 L, Est GFR (MDRD) Non-Af 38 L, BUN/Creatinine Ratio 20.7 H, Glucose 121 H, Calcium 8.5 04/06/22 06:54: POC Glucose 122 H 04/06/22 1118 <Electronically signed by Elham Olivia MD> Cosigner Signature (if applicable): CC: Dr. New Lucero MD; Dr. Jennifer Watt MD; Dr. Jessica Meyer MD; Dr. Jonathan Bowling MD~ Signed [facility] Work Phone: [phone] 312-698301-24-[address] Lucero [facility] April 06, 2022 10:06am Note Date/Time April 05, 2022 6 :53pm [facility] Medical Records Department [address] [place] [address] Consultation - Cardiology 04/05/22 1850 MR#: [id number] Acct: [id number] Name: FRANCISCO THOMAS Rep #:[id number] : 1940 81 From: New Lucero MD PCP: Dr. Jennifer Watt MD Status:ADM IN Location: [place] [address] Assessment & Plan Assessment/Plan (1) Congestive heart failure: PLAN: He does have evidence of diastolic heart failure. His estimated ejection fraction is noted to be preserved with mitral calcification and moderate pulmonary hypertension. My suspicion is that his severe anemia is contributing to some of his symptomatology. We will continue with diuresis watching his renal function. (2) Pleural effusion on left: PLAN: He does have evidence of left pleural effusion. He should be considered for thoracentesis to help with symptomatic improvement in his breathing. (3) Hypertension: PLAN: Blood pressure is better controlled at this time. He has had a renal artery stent placed and the plan to be to continue his current medical therapy. I will recommend that we increase his amlodipine to 10 mg a day. (4) Coronary artery disease: PLAN: He does have minimal coronary artery disease. He has not had any documented stress test or cardiac catheterization which has demonstrated severe obstruction. Depending on the findings further recommendations will be made. Thank you for allowing me to participate in the care of your patient. Please don't hesitate to call if any issues arise. HPI Consult Data Date of Consult: 04/05/22 HPI Narrative HPI Narrative: FRANCISCO THOMAS, is a 81 M who presents progressive shortness of breath. He is a gentleman with a history of hypertension, hyperlipidemia, previous cerebrovascular accident, and hypokalemia. He had previously been seen in our office for uncontrolled high blood pressure. He does have significant peripheral vascular disease with an abnormal YANETH with moderately severe bilateral lower extremity disease.? He also has a renal artery duplex scan which demonstrated 60% stenosis of the right renal artery.? The mid abdomen also has an abdominal aortic aneurysm measuring 3 x 3 cm. He underwent a renal artery stent placement on August 05. His most recent renal artery duplex from 10/2021 demonstrated bilateral renal arteries-less than 60% stenosis. Did have some medication changes to his regimen. He was admitted to the hospital a few weeks ago and underwent diuresis. He has been persistently anemic. The etiology is not entirely clear at this time. He was admitted to the hospital with aspiration pneumonia as well as renal dysfunction and was treated and then transferred to the transitional care unit. He presents back here with weakness and shortness of breath. He denies any chest pain. He has been compliant with his medications. [facility] Medical History Absent pedal pulses Acute left-sided muscle weakness Depression Dysphagia Essential hypertension Facial droop due to acute stroke History of CVA (cerebrovascular accident) (12/2020) Hydrocele in adult Hyperlipidemia Incontinence Limb weakness Normocytic normochromic anemia Osteoarthritis Peripheral vascular occlusive disease Pneumonia Proteinuria due to type 2 diabetes mellitus Recurrent inguinal hernia of right side without obstruction or gangrene Restless legs Right pontine CVA Right renal artery stenosis Skin lesion of face SOB (shortness of breath) Type 2 diabetes mellitus Unsteadiness Ventricular tachycardia seen on handtools repairer (02/20/21) Home Medications multivitamin,iy-wfmo-bnoewwhp (Complete Multivitamin tablet) 1 tab PO QDAY supplement 03/03/17 [History Last Taken 02/23/22] aspirin 81 mg chewable tablet 81 mg PO BREAKFAST heart health 01/02/21 [History Last Taken 02/24/22] Handicap Placard #1 ea 02/12/21 [Rx Last Taken Unknown] pen needle, diabetic 32 gauge x 5/32 (BD Sanaz 2nd Gen Pen Needle) #50 ea 06/02/21 [Rx Last Taken Unknown] carvedilol 25 mg tablet 25 mg PO BID heart 02/24/22 [History Last Taken 02/24/22] clopidogrel 75 mg tablet (Plavix) 75 mg PO DAILY blood thinner 02/24/22 [History Last Taken 02/23/22] doxazosin 8 mg tablet 8 mg PO QHS bph 02/24/22 [History Last Taken 02/23/22] ezetimibe 10 mg tablet (Zetia) 10 mg PO QHS cholesterol 02/24/22 [History Last Taken 02/23/22] ferrous sulfate 325 mg (65 mg iron) capsule,extended release 65 mg PO DAILY supplement 02/24/22 [History Last Taken 02/23/22] latanoprost 0.005 % eye drops 1 drp EACH EYE HS eyes 02/24/22 [History Last Taken 02/23/22] pramipexole 0.125 mg tablet 0.125 mg PO QHS parkinsons 02/24/22 [History Last Taken 02/23/22] sertraline 50 mg tablet 50 mg PO DAILY mood 02/24/22 [History Last Taken 02/24/22] sennosides 8.6 mg-docusate sodium 50 mg tablet (Stool Softener-Stimulant Laxative) 2 tab PO BID PRN PRN Constipation #0 tabs 02/27/22 [Rx Last Taken Unknown] acetaminophen 500 mg tablet 1,000 mg PO Q6H PRN PRN Pain Score 1-10 #0 tabs 03/09/22 [Rx Last Taken Unknown] amlodipine 5 mg tablet 5 mg PO DAILY 30 days #30 tabs 03/09/22 [Rx Last Taken Unknown] insulin lispro 100 unit/mL subcutaneous pen (Humalog KwikPen (U-100) Insulin) 5 unit subcut TIDAC 03/17/22 [History Last Taken Unknown] melatonin 10 mg sublingual tablet 10 mg PO QHS 03/17/22 [History Last Taken Unknown] gabapentin 100 mg capsule 100 mg PO BID pain #180 caps 03/18/22 [Rx Last Taken Unknown] gabapentin 300 mg capsule 300 mg PO 2100 pain #90 caps 03/18/22 [Rx Last Taken Unknown] losartan 25 mg tablet 25 mg PO DAILY 30 days #90 tabs 03/18/22 [Rx Last Taken Unknown] hydralazine 25 mg tablet 75 mg PO TID 30 days #270 tabs 03/25/22 [Rx Last Taken Unknown] hydrochlorothiazide 25 mg tablet 25 mg PO DAILY 04/05/22 [History Last Taken Unknown] insulin glargine-yfgn 100 unit/mL (3 mL) subcutaneous pen 14 unit subcut DAILY 04/05/22 [History Last Taken Unknown] Allergy/AdvReac Type Severity Reaction Status Date / Time meloxicam [From Mobic] Allergy Intermediate itching Verified 04/05/22 12:08 pravastatin [From Pravachol] AdvReac Mild myalgia Verified 04/05/22 12:08 cholestyramine AdvReac hypoglycemi Verified 04/05/22 12:08 a Family History Mother Hypertension Cancer Father Heart disease Diabetes Surgical History History of cataract surgery History of herniorrhaphy History of lumbar laminectomy History of stent insertion of renal artery (08/05/21) Status post laser cataract surgery of left eye Social History household members: spouse and other details: Abigail is his 's name housing: house number of children: 2 current occupational status: retired and other details: worked for [employer] prior to retiring leisure activities: other Smoking Status: Never smoker Electronic Cigarette Use: not used alcohol intake: former substance use type: does not use what type of physical activity do you participate in: walking frequency: 1-2 times per week ROS Constitutional Constitutional: Denies fever(s) or weight loss Eyes Eyes: Reports systems reviewed and no addt'l complaints, except as documented ENT HEENT: Reports systems reviewed and no addt'l complaints, except as documented Cardiovascular Cardiovascular: Reports dyspnea at rest and dyspnea on exertion; Denies chest pain at rest, chest pain with activity, edema, palpitations or paroxysmal nocturnal dyspnea Respiratory/Chest Respiratory/Chest: Reports dyspnea on exertion, shortness of breath at rest and shortness of breath with exertion; Denies productive cough Gastrointestinal Gastrointestinal: Denies change in bowel habits, nausea, vomiting or weight changes Genitourinary Genitourinary: Denies difficulty urinating Musculoskeletal Musculoskeletal: Denies joint stiffness or muscle weakness Integumentary Integumentary: Denies lesions Neurologic Neurologic: Denies dizziness or syncope Psychiatric Psychiatric: Denies anxiety Endocrine Endocrinology: Denies excessive sweating or fatigue Hematologic/Lymphatic Hematologic/Lymphatic: Denies anemia Allergic/Immunologic Allergic/Immunologic: Denies seasonal rhinorrhea Physical Exam Const alert, oriented x3 and no apparent distress General Appearance: cooperative HEENT hearing grossly normal bilaterally Head and Scalp: atraumatic Eyes EOMs intact bilaterally Neck General: normal visual inspection Chest inspection of chest normal and palpation of chest normal Resp normal respiratory effort Auscultation: diminished lung sounds Cardio regular rate, regular rhythm, S1 normal heart sound and S2 normal heart sound Jugular Venous Distention: JVD GI normal to inspection, nondistended, normoactive bowel sounds Extremity normal capillary refill General Extremity: edema Peripheral Pulses: Yes pulses 2+ throughout and femoral pulses present Skin no rashes or lesions noted Neuro oriented x3 and CN's II-XII intact bilaterally Psych Appearance: grossly normal and appropriate Risk Stratification Risk Stratification Applicable: No Objective Data Vital Signs: Vital Signs Temp Pulse Resp BP Pulse Ox O2 Del Method O2 Flow Rate 98.3 F 65 18 162/68 H 93 Nasal Cannula 2 04/05/22 18:28 04/05/22 18:28 04/05/22 18:28 04/05/22 18:28 04/05/22 18:28 04/05/22 18:28 04/05/22 18:28 Oxygen Flow Rate (L/min) 2 Oxygen Delivery Method Nasal Cannula Weight: 189 lb 6.033 oz Body Mass Index (BMI) 25.6 Intake & Output: Intake and Output for Last 24 Hours 04/03/22 04/04/22 04/05/22 23:59 23:59 23:59 Output Total 325 / 325 Balance -325 / -325 Lab / Micro Data Result Diagrams: 04/05/22 13:15 04/05/22 13:15 Labs: Laboratory Results - last 24 hr 04/05/22 13:15: WBC 9.0, RBC 3.07 L, Hgb 8.6 L, Hct 27.4 L, MCV 89.3, MCH 28.0, MCHC 31.4 L, RDW Std Deviation 46.4 H, RDW Coeff of Cait 14.4, Plt Count 289, MPV10.4, Immature Gran % (Auto) 0.100, Neut % (Auto) 69.3, Lymph % (Auto) 10.3 L, [place] % (Auto) 14.2 H, Eos % (Auto) 5.4 H, Baso % (Auto) 0.7, Absolute Neuts (auto) 6.2, Absolute Lymphs (auto) 0.93, Nucleated RBC % 0 04/05/22 13:15: Sodium 139, Potassium 3.8, Chloride 107, Carbon Dioxide 24.0, Anion Gap 8, BUN 35 H, Creatinine 1.76 H, Estim Creat Clear Calc 35.52, Est GFR (MDRD) Af Amer 48 L, Est GFR (MDRD) Non-Af 40 L, BUN/Creatinine Ratio 19.9, Glucose 136 H, Calcium 9.0, Troponin I High Sens 10 04/05/22 13:15: Lactic Acid 1.0 04/05/22 13:15: B-Natriuretic Peptide 282.1 H 04/05/22 15:34: Troponin I High Sens 11 Cardiology Labs/Tests 04/05/22 13:15: WBC 9.0, RBC 3.07 L, Hgb 8.6 L, Hct 27.4 L, MCV 89.3, MCH 28.0, MCHC 31.4 L, Plt Count 289, MPV 10.4, Immature Gran % (Auto) 0.100, Neut % (Auto) 69.3, Lymph % (Auto) 10.3 L, [place] % (Auto) 14.2 H, Eos % (Auto) 5.4 H, Baso % (Auto) 0.7, Absolute Neuts (auto) 6.2, Nucleated RBC % 0 04/05/22 13:15: Sodium 139, Potassium 3.8, Chloride 107, Carbon Dioxide 24.0, Anion Gap 8, BUN 35 H, Creatinine 1.76 H, Est GFR (MDRD) Af Amer 48 L, Est GFR (MDRD) Non-Af 40 L, BUN/Creatinine Ratio 19.9, Glucose 136 H, Calcium 9.0 04/05/22 13:15: Lactic Acid 1.0 04/05/22 13:15: B-Natriuretic Peptide 282.1 H Rhythm: EKG: ECHO: Stress Test: Cardiac Cath: PCI: CT Surgery: Holter monitor: EPS: PPM: CXR: Chest CT Scan: 04/06/22 1006 <Electronically signed by New Lucero MD> Cosigner Signature (if applicable): CC: Dr. New Lucero MD; Dr. Jennifer Watt MD; Dr. Jessica Meyer MD~ Signed [facility] Work Phone: [phone] 799-243401-24-[address] Lucero [facility] April 06, 2022 10:06am Note Date/Time April 06, 2022 7 :25am [facility] Medical Records Department [address] [place] [id number] Progress Note - Cardiology 04/06/22722 MR#: [id number] Acct: [id number] Name: FRANCISCO THOMAS Rep #:[id number] : 1940 81 From: New Lucero MD PCP: Dr. Jennifer Watt MD Status:ADM IN Location: [place] [address] Subjective Subjective Patient seen and evaluated. Appears to be somewhat better this morning. Objective Data Vital Signs: Vital Signs Temp Pulse Resp BP Pulse Ox O2 Del Method O2 Flow Rate 97.8 F 60 16 142/55 H 92 Bi-pap 3 04/06/22 04:12 04/06/22 06:10 04/06/22 04:12 04/06/22 06:10 04/06/22 04:12 04/06/22 04:12 04/05/22 23:00 Oxygen Flow Rate (L/min) 3 Oxygen Delivery Method Bi-pap Weight: 189 lb 6.033 oz Body Mass Index (BMI) 25.6 Intake & Output: Intake and Output for Last 24 Hours 04/04/22 04/05/22 04/06/22 23:59 23:59 23:59 Output Total 825 / 825 650 / 650 Balance -825 / -825 -650 / -650 Lab / Micro Data Result Diagrams: 04/06/22 04:33 04/06/22 04:33 Labs: Laboratory Results - last 24 hr 04/05/22 13:15: WBC 9.0, RBC 3.07 L, Hgb 8.6 L, Hct 27.4 L, MCV 89.3, MCH 28.0, MCHC 31.4 L, RDW Std Deviation 46.4 H, RDW Coeff of Cait 14.4, Plt Count 289, MPV10.4, Immature Gran % (Auto) 0.100, Neut % (Auto) 69.3, Lymph % (Auto) 10.3 L, [place] % (Auto) 14.2 H, Eos % (Auto) 5.4 H, Baso % (Auto) 0.7, Absolute Neuts (auto) 6.2, Absolute Lymphs (auto) 0.93, Nucleated RBC % 0 04/05/22 13:15: Sodium 139, Potassium 3.8, Chloride 107, Carbon Dioxide 24.0, Anion Gap 8, BUN 35 H, Creatinine 1.76 H, Estim Creat Clear Calc 35.52, Est GFR (MDRD) Af Amer 48 L, Est GFR (MDRD) Non-Af 40 L, BUN/Creatinine Ratio 19.9, Glucose 136 H, Calcium 9.0, Troponin I High Sens 10 04/05/22 13:15: Lactic Acid 1.0 04/05/22 13:15: B-Natriuretic Peptide 282.1 H 04/05/22 15:34: Troponin I High Sens 11 04/05/22 20:30: Troponin I High Sens 11 04/05/22 21:31: POC Glucose 231 H 04/06/22 04:33: WBC 7.6, RBC 2.64 L, Hgb 7.7 L, Hct 23.6 L, MCV 89.4, MCH 29.2, MCHC 32.6, RDW Std Deviation 46.9 H, RDW Coeff of Cait 14.3, Plt Count 275, MPV 10.7, Immature Gran % (Auto) 0.300, Neut % (Auto) 61.1, Lymph % (Auto) 13.8 L, [place] % (Auto) 15.2 H, Eos % (Auto) 8.7 H, Baso % (Auto) 0.9, Absolute Neuts (auto) 4.6, Absolute Lymphs (auto) 1.05, Nucleated RBC % 0 04/06/22 04:33: Sodium 140, Potassium 3.3 L, Chloride 105, Carbon Dioxide 27.0, Anion Gap 8, BUN 38 H, Creatinine 1.84 H, Estim Creat Clear Calc 33.97, Est GFR (MDRD) Af Amer 45 L, Est GFR (MDRD) Non-Af 38 L, BUN/Creatinine Ratio 20.7 H, Glucose 121 H, Calcium 8.5 04/06/22 06:54: POC Glucose 122 H Cardiology Labs/Tests 04/05/22 13:15: WBC 9.0, RBC 3.07 L, Hgb 8.6 L, Hct 27.4 L, MCV 89.3, MCH 28.0, MCHC 31.4 L, Plt Count 289, MPV 10.4, Immature Gran % (Auto) 0.100, Neut % (Auto) 69.3, Lymph % (Auto) 10.3 L, [place] % (Auto) 14.2 H, Eos % (Auto) 5.4 H, Baso % (Auto) 0.7, Absolute Neuts (auto) 6.2, Nucleated RBC % 0 04/05/22 13:15: Sodium 139, Potassium 3.8, Chloride 107, Carbon Dioxide 24.0, Anion Gap 8, BUN 35 H, Creatinine 1.76 H, Est GFR (MDRD) Af Amer 48 L, Est GFR (MDRD) Non-Af 40 L, BUN/Creatinine Ratio 19.9, Glucose 136 H, Calcium 9.0 04/05/22 13:15: Lactic Acid 1.0 04/05/22 13:15: B-Natriuretic Peptide 282.1 H 04/06/22 04:33: WBC 7.6, RBC 2.64 L, Hgb 7.7 L, Hct 23.6 L, MCV 89.4, MCH 29.2, MCHC 32.6, Plt Count 275, MPV 10.7, Immature Gran % (Auto) 0.300, Neut % (Auto) 61.1, Lymph % (Auto) 13.8 L, [place] % (Auto) 15.2 H, Eos % (Auto) 8.7 H, Baso % (Auto) 0.9, Absolute Neuts (auto) 4.6, Nucleated RBC % 0 04/06/22 04:33: Sodium 140, Potassium 3.3 L, Chloride 105, Carbon Dioxide 27.0, Anion Gap 8, BUN 38 H, Creatinine 1.84 H, Est GFR (MDRD) Af Amer 45 L, Est GFR (MDRD) Non-Af 38 L, BUN/Creatinine Ratio 20.7 H, Glucose 121 H, Calcium 8.5 Rhythm: EKG: ECHO: Stress Test: Cardiac Cath: PCI: CT Surgery: Holter monitor: EPS: PPM: CXR: Chest CT Scan: Physical Exam Const alert, oriented x3 and no apparent distress General Appearance: cooperative HEENT hearing grossly normal bilaterally Head and Scalp: atraumatic Eyes EOMs intact bilaterally Neck General: normal visual inspection Chest inspection of chest normal and palpation of chest normal Resp normal respiratory effort Auscultation: diminished lung sounds Cardio regular rate, regular rhythm, S1 normal heart sound and S2 normal heart sound Jugular Venous Distention: JVD GI normal to inspection, nondistended, normoactive bowel sounds Extremity normal capillary refill General Extremity: edema Peripheral Pulses: Yes pulses 2+ throughout and femoral pulses present Skin no rashes or lesions noted Neuro oriented x3 and CN's II-XII intact bilaterally Psych Appearance: grossly normal and appropriate Assessment & Plan Assessment/Plan (1) Congestive heart failure: PLAN: He does have evidence of diastolic heart failure. His estimated ejection fraction is noted to be preserved with mitral calcification and moderate pulmonary hypertension. My suspicion is that his severe anemia is contributing to some of his symptomatology. We will continue with diuresis watching his renal function. (2) Pleural effusion on left: PLAN: He does have evidence of left pleural effusion. He should be considered for thoracentesis to help with symptomatic improvement in his breathing. (3) Hypertension: PLAN: Blood pressure is better controlled at this time. He has had a renal artery stent placed and the plan to be to continue his current medical therapy. I will recommend that we increase his amlodipine to 10 mg a day. (4) Coronary artery disease: PLAN: He does have minimal coronary artery disease. He has not had any documented stress test or cardiac catheterization which has demonstrated severe obstruction. Depending on the findings further recommendations will be made. * Will likely consider pharmacologic stress test prior to discharge Thank you for allowing me to participate in the care of your patient. Please don't hesitate to call if any issues arise. 04/06/22 1006 <Electronically signed by New Lucero MD> Cosigner Signature (if applicable): CC: ~ Signed [facility] Work Phone: [phone]) 369-757901-23-[address] Milner [facility] April 05, 2022 4:20pm Note Date/Time April 05, 2022 1 :46pm [facility] Medical Records Department [address] [place] [address] Emergency Department Summary 04/05/22 MR#: [id number] Acct: [id number] Name: FRANCISCO THOMAS Rep #:[id number] : [id number] 81 From: Paddy Milner MD PCP: Dr. Jennifer Watt MD Status:REG ER Location: ED HPI History of Present Illness Chief Complaint: Shortness of Breath Detail of Chief Complaint: Increasing shortness of breath Informant: patient and spouse/S.O. Onset/Context/Timing Onset: Days Context: gradual Timing: Continuous Quality: Positive for Dyspnea on exertion; Negative for Orthopnea, PND or Wheezing Current Severity: Moderate Maximum Severity: Severe Worsened by: Exertion; Not Worsened By Lying flat or Coughing Relieved by: Nothing Associated Symptoms Negative for cough, rhinorrhea, post nasal drip, ear pain, fever, sore throat, subjective, chills, sweats, clear sputum, white sputum, yellow sputum or green sputum Chest Pain: Positive for None Narrative Narrative: Patient is an 81-year-old male who is a poor informant. He presents because of increasing shortness of breath over the past several days. had to supplement. He denies chest discomfort. He denies fever, chills or night sweats. He does report congestion, which is chronic. He denies postnasal drainage or sore throat. He denies history of PE or DVT. He does endorse increased swelling of his legs. He denies orthopnea. He states he sleeps with 1 pillow. He denies PND. He denies chest pressure, tightness, heaviness or pain. He denies nausea, vomiting or diarrhea. He denies black or maroon-colored stool. He denies urologic symptoms. He does have history of iron deficiency anemia. He has noted no change in the size, caliber or consistency of his stool. PE Risk Factors: Positive for Recent immobilization; Negative for Cancer, OCP + Smoking + > 35, Prior DVT or PE, Recent surgery or Recent travel Prior similar symptoms: Yes Recent Illness/Hospitalization: No [facility] Medical History Absent pedal pulses Acute left-sided muscle weakness Depression Dysphagia Essential hypertension Facial droop due to acute stroke History of CVA (cerebrovascular accident) (12/2020) Hydrocele in adult Hyperlipidemia Incontinence Limb weakness Normocytic normochromic anemia Osteoarthritis Peripheral vascular occlusive disease Pneumonia Proteinuria due to type 2 diabetes mellitus Recurrent inguinal hernia of right side without obstruction or gangrene Restless legs Right pontine CVA Right renal artery stenosis Skin lesion of face SOB (shortness of breath) Type 2 diabetes mellitus Unsteadiness Ventricular tachycardia seen on handtools repairer (02/20/21) Home Medications multivitamin,bs-ymyi-bgdjgcqt (Complete Multivitamin tablet) 1 tab PO QDAY supplement 03/03/17 [History Last Taken 02/23/22] aspirin 81 mg chewable tablet 81 mg PO BREAKFAST heart health 01/02/21 [History Last Taken 02/24/22] Handicap Placard #1 ea 02/12/21 [Rx Last Taken Unknown] pen needle, diabetic 32 gauge x (BD Sanaz 2nd Gen Pen Needle) #50 ea 06/02/21 [Rx Last Taken Unknown] carvedilol 25 mg tablet 25 mg PO BID heart 02/24/22 [History Last Taken 02/24/22] clopidogrel 75 mg tablet (Plavix) 75 mg PO DAILY blood thinner 02/24/22 [History Last Taken 02/23/22] doxazosin 8 mg tablet 8 mg PO QHS bph 02/24/22 [History Last Taken 02/23/22] ezetimibe 10 mg tablet (Zetia) 10 mg PO QHS cholesterol 02/24/22 [History Last Taken 02/23/22] ferrous sulfate 325 mg (65 mg iron) capsule,extended release 65 mg PO DAILY supplement 02/24/22 [History Last Taken 02/23/22] latanoprost 0.005 % eye drops 1 drp EACH EYE HS eyes 02/24/22 [History Last Taken 02/23/22] pramipexole 0.125 mg tablet 0.125 mg PO QHS parkinsons 02/24/22 [History Last Taken 02/23/22] sertraline 50 mg tablet 50 mg PO DAILY mood 02/24/22 [History Last Taken 02/24/22] sennosides 8.6 mg-docusate sodium 50 mg tablet (Stool Softener-Stimulant Laxative) 2 tab PO BID PRN PRN Constipation #0 tabs 02/27/22 [Rx Last Taken Unknown] acetaminophen 500 mg tablet 1,000 mg PO Q6H PRN PRN Pain Score 1-10 #0 tabs 03/09/22 [Rx Last Taken Unknown] amlodipine 5 mg tablet 5 mg PO DAILY 30 days #30 tabs 03/09/22 [Rx Last Taken Unknown] insulin lispro 100 unit/mL subcutaneous pen (Humalog KwikPen (U-100) Insulin) 5 unit subcut TIDAC 03/17/22 [History Last Taken Unknown] melatonin 10 mg sublingual tablet 10 mg PO QHS 03/17/22 [History Last Taken Unknown] gabapentin 100 mg capsule 100 mg PO BID pain #180 caps 03/18/22 [Rx Last Taken Unknown] gabapentin 300 mg capsule 300 mg PO 2100 pain #90 caps 03/18/22 [Rx Last Taken Unknown] losartan 25 mg tablet 25 mg PO DAILY 30 days #90 tabs 03/18/22 [Rx Last Taken Unknown] hydralazine 25 mg tablet 75 mg PO TID 30 days #270 tabs 03/25/22 [Rx Last Taken Unknown] hydrochlorothiazide 25 mg tablet 25 mg PO DAILY 04/05/22 [History Last Taken Unknown] insulin glargine-yfgn 100 unit/mL (3 mL) subcutaneous pen 14 unit subcut DAILY 04/05/22 [History Last Taken Unknown] Allergy/AdvReac Type Severity Reaction Status Date / Time meloxicam [From Mobic] Allergy Intermediate itching Verified 04/05/22 12:08 pravastatin [From Pravachol] AdvReac Mild myalgia Verified 04/05/22 12:08 cholestyramine AdvReac hypoglycemi Verified 04/05/22 12:08 a Family History Mother Hypertension Cancer Father Heart disease Diabetes Surgical History History of cataract surgery History of herniorrhaphy History of lumbar laminectomy History of stent insertion of renal artery (08/05/21) Status post laser cataract surgery of left eye Social History household members: spouse and other details: Abigail is his 's name housing: house number of children: 2 current occupational status: retired and other details: worked for [employer] prior to retiring leisure activities: other Smoking Status: Never smoker Electronic Cigarette Use: not used alcohol intake: former substance use type: does not use what type of physical activity do you participate in: walking frequency: 1-2 times per week ROS ROS ED Constitutional Constitutional ED: Denies chills, fever(s), sweats or weight loss Eyes Eyes: Denies blurry vision, change in vision or diplopia ENT ENT ED: Denies ear pain, rhinorrhea or sore throat Cardiovascular Cardiovascular: Denies chest pain, orthopnea, palpitations, paroxysmal nocturnaldyspnea or racing heartbeat Respiratory/Chest Respiratory/Chest: Reports dyspnea and dyspnea on exertion; Denies cough, orthopnea, paroxysmal nocturnal dyspnea or sputum Gastrointestinal Gastrointestinal: Denies abdominal pain, constipation, diarrhea, melena, nausea or vomiting Genitourinary Genitourinary ED: Denies dysuria, hematuria or urinary frequency Musculoskeletal Musculoskeletal: Denies arthralgias, back pain, myalgias or neck pain Integumentary Denies Abrasions or rash Neurologic Neurologic: Denies headache(s), paresthesias or weakness Endocrine Endocrinology: Denies polydipsia or polyuria Hematologic/Lymphatic Hematologic/Lymphatic: Denies easy bleeding or easy bruising EXAM Physical Exam Const Vital Signs: 04/05/22 12:10 04/05/22 12:28 04/05/22 12:29 Temperature 98.4 F Temperature Source Temporal Pulse Rate 63 66 Respiratory Rate 19 H 18 Respiratory Effort Normal Non-Labored Respiratory Depth Normal Respiratory Pattern Normal Blood Pressure 149/52 H 140/75 H Blood Pressure Mean 84 96 Pulse Ox 93 93 Oxygen Delivery Method Room Air Nasal Cannula Oxygen Flow Rate (L/min) 2 04/05/22 13:23 04/05/22 14:43 Temperature 98.4 F Temperature Source Oral Pulse Rate 66 67 Respiratory Rate 20 H 16 Respiratory Effort Respiratory Depth Respiratory Pattern Blood Pressure 147/60 H 154/63 H Blood Pressure Mean 89 93 Pulse Ox 92 95 Oxygen Delivery Method Nasal Cannula Nasal Cannula Oxygen Flow Rate (L/min) 2 2 Positive well nourished and well developed; Negative for obese Constitutional Narrative: Patient has use of accessory muscles and mild retractions. Patient was not hypoxic on room air. He was placed on 2 L by nasal cannula. states he hasobstructive sleep apnea and is compliant with his BiPAP machine. This helps hisbreathing. General Appearance ED: well developed and pallor; Negative for NAD Nutritional Appearance: Negative for obese HEENT Reports dry mucous membranes HEENT Narrative: Head is normocephalic. Ears normal. TMs are normal. Nares are patent. There is no drainage. Posterior pharynx out erythema or exudate. Uvula midline. atraumatic Mouth ED: Yes dry mucous membranes Mouth: dry mucous membranes Eyes PERRL and EOMs intact bilaterally General Eye ED: Yes pale conjunctiva; Negative for scleral icterus Neck no lymphadenopathy, supple, no meningeal signs and no JVD Resp No normal respiratory effort Resp Narrative: There are by lateral rales, greater on the left. There is diminished breath sounds on the left. Cardio regular rate, regular rhythm, S1 normal heart sound, S2 normal heart sound and no murmurs GI non-tender, non-distended and no masses Auscultation: hypoactive bowel sounds Palpation: soft Back/Spine no CVA tenderness and normal to inspection General Back: Negative for CVA tenderness Extremity Extremity Narrative: Patient has significant edema of the right and left lower extremity. Extremities are pale. Because of the amount of edema unable to appreciate a PT or DP pulse. Capillary refill is normal. General Extremety ED: Yes edema General Extremity: edema Neuro oriented x3, CN's II-XII intact bilaterally and no sensory deficits noted Justa Coma Scale: document GCS findings Spontaneous Obeys Commands Oriented 15 Psych mental status grossly normal Skin no wounds General Skin Exam: pallor; Negative for jaundice MDM MDM MDM Narrative Medical decision making narrative: Patient had an echo performed February 2022 when he was admitted for bradycardiaand V. tach noted on monitor. He also had issues with high blood pressure. Theechocardiogram was interpreted radiologist and revealed the following: Echocardiogram? 02/16/22 Interpretation Summary Left ventricular systolic function is normal. The estimated ejection fraction is 65 %. The left atrium is mildly enlarged. There is moderate to severe mitral annular calcification. Extension of the mitral annular calcification on the base of the posterior mitral valve leaflet. Mild mitral valve stenosis. Mild (1+) mitral valve insufficiency. Mild tricuspid valve insufficiency. Mild aortic stenosis. Right ventricular systolic pressure estimated to be 55 mmHg c/w pulmonary hypertension. Stage 2 diastolic dysfunction. Clinically patient appears pale. Will obtain CBC to assess for anemia. Chest x- ray is obtained because of concern for congestive heart failure. BMP was obtained to assess renal function electrolytes. EKG to rule out acute ischemia. Troponin to rule out recent myocardial event. Patient was administered Lasix and since clinically he is fluid overloaded and concern for CHF since he reports history of congestive heart failure. Dr. [place] patient's inside wireman was paged to discuss case. Suspect this is a combination of heart failure with anemia and renal insufficiency. Dr. [place] recommended additional dose of Lasix. Spoke with Dr. Verma thehospitalist for admission. Lab Data Attestation: I reviewed the patient's lab results. Lab results narrative: Patient has chronic anemia. H&H is baseline for patient. Lactate was normal. BNP is slightly elevated 282.1. Patient's creatinine is elevated and is chronically elevated. Delta troponin is 1. Labs: Laboratory Results - last 24 hr 04/05/22 04/05/22 04/05/22 13:15 13:15 13:15 WBC 9.0 RBC 3.07 L Hgb 8.6 L Hct 27.4 L MCV 89.3 MCH 28.0 MCHC 31.4 L RDW Std Deviation 46.4 H RDW Coeff of Cait 14.4 Plt Count 289 MPV 10.4 Immature Gran % (Auto) 0.100 Neut % (Auto) 69.3 Lymph % (Auto) 10.3 L [place] % (Auto) 14.2 H Eos % (Auto) 5.4 H Baso % (Auto) 0.7 Absolute Neuts (auto) 6.2 Absolute Lymphs (auto) 0.93 Nucleated RBC % 0 Sodium 139 Potassium 3.8 Chloride 107 Carbon Dioxide 24.0 Anion Gap 8 BUN 35 H Creatinine 1.76 H Estim Creat Clear Calc 35.52 Est GFR (MDRD) Af Amer 48 L Est GFR (MDRD) Non-Af 40 L BUN/Creatinine Ratio 19.9 Glucose 136 H Lactic Acid 1.0 Calcium 9.0 Troponin I High Sens 10 B-Natriuretic Peptide 04/05/22 04/05/22 13:15 15:34 WBC RBC Hgb Hct MCV MCH MCHC RDW Std Deviation RDW Coeff of Cait Plt Count MPV Immature Gran % (Auto) Neut % (Auto) Lymph % (Auto) [place] % (Auto) Eos % (Auto) Baso % (Auto) Absolute Neuts (auto) Absolute Lymphs (auto) Nucleated RBC % Sodium Potassium Chloride Carbon Dioxide Anion Gap BUN Creatinine Estim Creat Clear Calc Est GFR (MDRD) Af Amer Est GFR (MDRD) Non-Af BUN/Creatinine Ratio Glucose Lactic Acid Calcium Troponin I High Sens 11 B-Natriuretic Peptide 282.1 H Radiography Chest X-Ray - ED: 1 View and Read by ED Physician (Single view chest x-ray reveals a significant left pleural effusion compared to x-ray obtained on February 24 and . The bilateral upper lobe infiltrates have resolved. This was independent reviewed interpreted by me.) EKG Initial EKG: Attestation: I personally reviewed and interpreted this EKG as follows: Interpretation: Sinus Rhythm (Normal sinus rhythm. EKG is normal. Ventricular rate is 68. [place] interval is 134 ms. QS duration 90 ms. QT durationof 140 ms. [place] is normal.) Discharge Plan Triage Chief Complaint: Shortness of Breath ED Provider: Paddy Milner Dx/Rx/DC Orders Clinical Impression: Pleural effusion on left, Obstructive Sleep Apnea-Hypopnea Syndrome, Chronic anemia, Lymphedema of both lower extremities, Type 2 diabetes mellitus, Coronaryartery disease, Congestive heart failure, Chronic kidney disease (CKD) stage G3a/A1, moderately decreased glomerular filtration rate (GFR) between 45-59 mL/min/1.73 square meter and albuminuria creatinine ratio less than 30 mg/g Prescriptions: No Action multivitamin,sk-ggka-sajuwega tablet tablet 1 tab PO QDAY melatonin 10 mg tablet, sublingual 10 mg PO QHS insulin lispro [Humalog KwikPen Insulin] 100 unit/mL insulin pen 5 unit subcut TIDAC Label Comments: if bs over 130 insulin glargine-yfgn 100 unit/mL (3 mL) insulin pen 14 unit subcut DAILY hydrochlorothiazide 25 mg tablet 25 mg PO DAILY aspirin 81 mg tablet,chewable 81 mg PO BREAKFAST ferrous sulfate 325 mg (65 mg iron) Capsule, Extended Release 65 mg PO DAILY latanoprost 0.005 % drops 1 drp EACH EYE HS carvedilol 25 mg tablet 25 mg PO BID Rx Instructions: must administer with a meal/food clopidogrel [Plavix] 75 mg tablet 75 mg PO DAILY doxazosin 8 mg tablet 8 mg PO QHS pramipexole 0.125 mg tablet 0.125 mg PO QHS sertraline 50 mg tablet 50 mg PO DAILY ezetimibe [Zetia] 10 mg tablet 10 mg PO QHS Rx Instructions: take at bedtime sennosides-docusate sodium [Stool Softener-Stimulant Laxat] 8.6-50 mg Tablet 2 tab PO BID PRN PRN (Reason: Constipation) Qty: 0 0RF amlodipine 5 mg Tablet 5 mg PO DAILY 30 Days Qty: 30 0RF acetaminophen 500 mg Tablet 1,000 mg PO Q6H PRN PRN (Reason: Pain Score 1-10) Qty: 0 0RF (DME) Handicap Placard See Rx Instructions .Route .MEDSUPPLY Qty: 1 0RF Rx Instructions: Length of time: 5 years (DME) pen needle, diabetic [BD Sanaz 2nd Gen Pen Needle] 32 gauge x 5/32 needle See Rx Instructions .ROUTE .MEDSUPPLY Qty: 50 2RF Rx Instructions: use once daily to adminster insulin as directed. gabapentin 100 mg capsule 100 mg PO BID Qty: 180 3RF gabapentin 300 mg capsule 300 mg PO 2100 Qty: 90 3RF losartan 25 mg tablet 25 mg PO DAILY 30 Days Qty: 90 3RF hydralazine 25 mg tablet 75 mg PO TID 30 Days Qty: 270 3RF Primary Care Provider: Jennifer Watt Referrals: Jennifer Watt MD [Primary Care Provider] - Disposition Disposition: Acute Care [facility] What to do if you have Problems For any increased pain, shortness of breath, bleeding, nausea or vomiting, chestpain, or any unexpected problems, contact your Primary Care Provider. Call [facility] ([phone]) or report to the closest Emergency Room. Call 911 if necessary. 04/05/22 1620 <Electronically signed by Paddy Milner MD> Cosigner Signature (if applicable): CC: Dr. Jennifer Watt MD ~ Signed [facility] Work Phone: [phone] Milner [facility] April 05, 2022 4:20pm Note Date/Time April 05, 2022 1 :46pm [facility] Medical Records Department [address] [place] [id number] Emergency Department Summary 04/05/22 MR#: [id number] Acct: [id number] Name: FRANCISCO THOMAS Rep #:[id number] : 1940 81 From: Paddy Milner MD PCP: Dr. Jennifer Watt MD Status:REG ER Location: ED HPI History of Present Illness Chief Complaint: Shortness of Breath Detail of Chief Complaint: Increasing shortness of breath Informant: patient and spouse/S.O. Onset/Context/Timing Onset: Days Context: gradual Timing: Continuous Quality: Positive for Dyspnea on exertion; Negative for Orthopnea, PND or Wheezing Current Severity: Moderate Maximum Severity: Severe Worsened by: Exertion; Not Worsened By Lying flat or Coughing Relieved by: Nothing Associated Symptoms Negative for cough, rhinorrhea, post nasal drip, ear pain, fever, sore throat, subjective, chills, sweats, clear sputum, white sputum, yellow sputum or green sputum Chest Pain: Positive for None Narrative Narrative: Patient is an 81-year-old male who is a poor informant. He presents because of increasing shortness of breath over the past several days. had to supplement. He denies chest discomfort. He denies fever, chills or night sweats. He does report congestion, which is chronic. He denies postnasal drainage or sore throat. He denies history of PE or DVT. He does endorse increased swelling of his legs. He denies orthopnea. He states he sleeps with 1 pillow. He denies PND. He denies chest pressure, tightness, heaviness or pain. He denies nausea, vomiting or diarrhea. He denies black or maroon-colored stool. He denies urologic symptoms. He does have history of iron deficiency anemia. He has noted no change in the size, caliber or consistency of his stool. PE Risk Factors: Positive for Recent immobilization; Negative for Cancer, OCP + Smoking + > 35, Prior DVT or PE, Recent surgery or Recent travel Prior similar symptoms: Yes Recent Illness/Hospitalization: No [facility] Medical History Absent pedal pulses Acute left-sided muscle weakness Depression Dysphagia Essential hypertension Facial droop due to acute stroke History of CVA (cerebrovascular accident) (12/2020) Hydrocele in adult Hyperlipidemia Incontinence Limb weakness Normocytic normochromic anemia Osteoarthritis Peripheral vascular occlusive disease Pneumonia Proteinuria due to type 2 diabetes mellitus Recurrent inguinal hernia of right side without obstruction or gangrene Restless legs Right pontine CVA Right renal artery stenosis Skin lesion of face SOB (shortness of breath) Type 2 diabetes mellitus Unsteadiness Ventricular tachycardia seen on handtools repairer (02/20/21) Home Medications multivitamin,om-dwak-jwoblgbl (Complete Multivitamin tablet) 1 tab PO QDAY supplement 03/03/17 [History Last Taken 02/23/22] aspirin 81 mg chewable tablet 81 mg PO BREAKFAST heart health 01/02/21 [History Last Taken 02/24/22] Handicap Placard #1 ea 02/12/21 [Rx Last Taken Unknown] pen needle, diabetic 32 gauge x 32 (BD Sanaz 2nd Gen Pen Needle) #50 ea 06/02/21 [Rx Last Taken Unknown] carvedilol 25 mg tablet 25 mg PO BID heart 02/24/22 [History Last Taken 02/24/22] clopidogrel 75 mg tablet (Plavix) 75 mg PO DAILY blood thinner 02/24/22 [History Last Taken 02/23/22] doxazosin 8 mg tablet 8 mg PO QHS bph 02/24/22 [History Last Taken 02/23/22] ezetimibe 10 mg tablet (Zetia) 10 mg PO QHS cholesterol 02/24/22 [History Last Taken 02/23/22] ferrous sulfate 325 mg (65 mg iron) capsule,extended release 65 mg PO DAILY supplement 02/24/22 [History Last Taken 02/23/22] latanoprost 0.005 % eye drops 1 drp EACH EYE HS eyes 02/24/22 [History Last Taken 02/23/22] pramipexole 0.125 mg tablet 0.125 mg PO QHS parkinsons 02/24/22 [History Last Taken 02/23/22] sertraline 50 mg tablet 50 mg PO DAILY mood 02/24/22 [History Last Taken 02/24/22] sennosides 8.6 mg-docusate sodium 50 mg tablet (Stool Softener-Stimulant Laxative) 2 tab PO BID PRN PRN Constipation #0 tabs 02/27/22 [Rx Last Taken Unknown] acetaminophen 500 mg tablet 1,000 mg PO Q6H PRN PRN Pain Score 1-10 #0 tabs 03/09/22 [Rx Last Taken Unknown] amlodipine 5 mg tablet 5 mg PO DAILY 30 days #30 tabs 03/09/22 [Rx Last Taken Unknown] insulin lispro 100 unit/mL subcutaneous pen (Humalog KwikPen (U-100) Insulin) 5 unit subcut TIDAC 03/17/22 [History Last Taken Unknown] melatonin 10 mg sublingual tablet 10 mg PO QHS 03/17/22 [History Last Taken Unknown] gabapentin 100 mg capsule 100 mg PO BID pain #180 caps 03/18/22 [Rx Last Taken Unknown] gabapentin 300 mg capsule 300 mg PO 2100 pain #90 caps 03/18/22 [Rx Last Taken Unknown] losartan 25 mg tablet 25 mg PO DAILY 30 days #90 tabs 03/18/22 [Rx Last Taken Unknown] hydralazine 25 mg tablet 75 mg PO TID 30 days #270 tabs 03/25/22 [Rx Last Taken Unknown] hydrochlorothiazide 25 mg tablet 25 mg PO DAILY 04/05/22 [History Last Taken Unknown] insulin glargine-yfgn 100 unit/mL (3 mL) subcutaneous pen 14 unit subcut DAILY 04/05/22 [History Last Taken Unknown] Allergy/AdvReac Type Severity Reaction Status Date / Time meloxicam [From Mobic] Allergy Intermediate itching Verified 04/05/22 12:08 pravastatin [From Pravachol] AdvReac Mild myalgia Verified 04/05/22 12:08 cholestyramine AdvReac hypoglycemi Verified 04/05/22 12:08 a Family History Mother Hypertension Cancer Father Heart disease Diabetes Surgical History History of cataract surgery History of herniorrhaphy History of lumbar laminectomy History of stent insertion of renal artery (08/05/21) Status post laser cataract surgery of left eye Social History household members: spouse and other details: Abigail is his 's name housing: house number of children: 2 current occupational status: retired and other details: worked for [employer] prior to retiring leisure activities: other Smoking Status: Never smoker Electronic Cigarette Use: not used alcohol intake: former substance use type: does not use what type of physical activity do you participate in: walking frequency: 1-2 times per week ROS ROS ED Constitutional Constitutional ED: Denies chills, fever(s), sweats or weight loss Eyes Eyes: Denies blurry vision, change in vision or diplopia ENT ENT ED: Denies ear pain, rhinorrhea or sore throat Cardiovascular Cardiovascular: Denies chest pain, orthopnea, palpitations, paroxysmal nocturnaldyspnea or racing heartbeat Respiratory/Chest Respiratory/Chest: Reports dyspnea and dyspnea on exertion; Denies cough, orthopnea, paroxysmal nocturnal dyspnea or sputum Gastrointestinal Gastrointestinal: Denies abdominal pain, constipation, diarrhea, melena, nausea or vomiting Genitourinary Genitourinary ED: Denies dysuria, hematuria or urinary frequency Musculoskeletal Musculoskeletal: Denies arthralgias, back pain, myalgias or neck pain Integumentary Denies Abrasions or rash Neurologic Neurologic: Denies headache(s), paresthesias or weakness Endocrine Endocrinology: Denies polydipsia or polyuria Hematologic/Lymphatic Hematologic/Lymphatic: Denies easy bleeding or easy bruising EXAM Physical Exam Const Vital Signs: 04/05/22 12:10 04/05/22 12:28 04/05/22 12:29 Temperature 98.4 F Temperature Source Temporal Pulse Rate 63 66 Respiratory Rate 19 H 18 Respiratory Effort Normal Non-Labored Respiratory Depth Normal Respiratory Pattern Normal Blood Pressure 149/52 H 140/75 H Blood Pressure Mean 84 96 Pulse Ox 93 93 Oxygen Delivery Method Room Air Nasal Cannula Oxygen Flow Rate (L/min) 2 04/05/22 13:23 04/05/22 14:43 Temperature 98.4 F Temperature Source Oral Pulse Rate 66 67 Respiratory Rate 20 H 16 Respiratory Effort Respiratory Depth Respiratory Pattern Blood Pressure 147/60 H 154/63 H Blood Pressure Mean 89 93 Pulse Ox 92 95 Oxygen Delivery Method Nasal Cannula Nasal Cannula Oxygen Flow Rate (L/min) 2 2 Positive well nourished and well developed; Negative for obese Constitutional Narrative: Patient has use of accessory muscles and mild retractions. Patient was not hypoxic on room air. He was placed on 2 L by nasal cannula. states he hasobstructive sleep apnea and is compliant with his BiPAP machine. This helps hisbreathing. General Appearance ED: well developed and pallor; Negative for NAD Nutritional Appearance: Negative for obese HEENT Reports dry mucous membranes HEENT Narrative: Head is normocephalic. Ears normal. TMs are normal. Nares are patent. There is no drainage. Posterior pharynx out erythema or exudate. Uvula midline. atraumatic Mouth ED: Yes dry mucous membranes Mouth: dry mucous membranes Eyes PERRL and EOMs intact bilaterally General Eye ED: Yes pale conjunctiva; Negative for scleral icterus Neck no lymphadenopathy, supple, no meningeal signs and no JVD Resp No normal respiratory effort Resp Narrative: There are by lateral rales, greater on the left. There is diminished breath sounds on the left. Cardio regular rate, regular rhythm, S1 normal heart sound, S2 normal heart sound and no murmurs GI non-tender, non-distended and no masses Auscultation: hypoactive bowel sounds Palpation: soft Back/Spine no CVA tenderness and normal to inspection General Back: Negative for CVA tenderness Extremity Extremity Narrative: Patient has significant edema of the right and left lower extremity. Extremities are pale. Because of the amount of edema unable to appreciate a PT or DP pulse. Capillary refill is normal. General Extremety ED: Yes edema General Extremity: edema Neuro oriented x3, CN's II-XII intact bilaterally and no sensory deficits noted Justa Coma Scale: document GCS findings Spontaneous Obeys Commands Oriented 15 Psych mental status grossly normal Skin no wounds General Skin Exam: pallor; Negative for jaundice MDM MDM MDM Narrative Medical decision making narrative: Patient had an echo performed February 2022 when he was admitted for bradycardiaand V. tach noted on monitor. He also had issues with high blood pressure. Theechocardiogram was interpreted radiologist and revealed the following: Echocardiogram? 02/16/22 Interpretation Summary Left ventricular systolic function is normal. The estimated ejection fraction is 65 %. The left atrium is mildly enlarged. There is moderate to severe mitral annular calcification. Extension of the mitral annular calcification on the base of the posterior mitral valve leaflet. Mild mitral valve stenosis. Mild (1+) mitral valve insufficiency. Mild tricuspid valve insufficiency. Mild aortic stenosis. Right ventricular systolic pressure estimated to be 55 mmHg c/w pulmonary hypertension. Stage 2 diastolic dysfunction. Clinically patient appears pale. Will obtain CBC to assess for anemia. Chest x- ray is obtained because of concern for congestive heart failure. BMP was obtained to assess renal function electrolytes. EKG to rule out acute ischemia. Troponin to rule out recent myocardial event. Patient was administered Lasix and since clinically he is fluid overloaded and concern for CHF since he reports history of congestive heart failure. Dr. [place] patient's inside wireman was paged to discuss case. Suspect this is a combination of heart failure with anemia and renal insufficiency. Dr. [place] recommended additional dose of Lasix. Spoke with Dr. Verma thehospitalist for admission. Lab Data Attestation: I reviewed the patient's lab results. Lab results narrative: Patient has chronic anemia. H&H is baseline for patient. Lactate was normal. BNP is slightly elevated 282.1. Patient's creatinine is elevated and is chronically elevated. Delta troponin is 1. Labs: Laboratory Results - last 24 hr 04/05/22 04/05/22 04/05/22 13:15 13:15 13:15 WBC 9.0 RBC 3.07 L Hgb 8.6 L Hct 27.4 L MCV 89.3 MCH 28.0 MCHC 31.4 L RDW Std Deviation 46.4 H RDW Coeff of Cait 14.4 Plt Count 289 MPV 10.4 Immature Gran % (Auto) 0.100 Neut % (Auto) 69.3 Lymph % (Auto) 10.3 L [place] % (Auto) 14.2 H Eos % (Auto) 5.4 H Baso % (Auto) 0.7 Absolute Neuts (auto) 6.2 Absolute Lymphs (auto) 0.93 Nucleated RBC % 0 Sodium 139 Potassium 3.8 Chloride 107 Carbon Dioxide 24.0 Anion Gap 8 BUN 35 H Creatinine 1.76 H Estim Creat Clear Calc 35.52 Est GFR (MDRD) Af Amer 48 L Est GFR (MDRD) Non-Af 40 L BUN/Creatinine Ratio 19.9 Glucose 136 H Lactic Acid 1.0 Calcium 9.0 Troponin I High Sens 10 B-Natriuretic Peptide 04/05/22 04/05/22 13:15 15:34 WBC RBC Hgb Hct MCV MCH MCHC RDW Std Deviation RDW Coeff of Cait Plt Count MPV Immature Gran % (Auto) Neut % (Auto) Lymph % (Auto) [place] % (Auto) Eos % (Auto) Baso % (Auto) Absolute Neuts (auto) Absolute Lymphs (auto) Nucleated RBC % Sodium Potassium Chloride Carbon Dioxide Anion Gap BUN Creatinine Estim Creat Clear Calc Est GFR (MDRD) Af Amer Est GFR (MDRD) Non-Af BUN/Creatinine Ratio Glucose Lactic Acid Calcium Troponin I High Sens 11 B-Natriuretic Peptide 282.1 H Radiography Chest X-Ray - ED: 1 View and Read by ED Physician (Single view chest x-ray reveals a significant left pleural effusion compared to x-ray obtained on February 24 and . The bilateral upper lobe infiltrates have resolved. This was independent reviewed interpreted by me.) EKG Initial EKG: Attestation: I personally reviewed and interpreted this EKG as follows: Interpretation: Sinus Rhythm (Normal sinus rhythm. EKG is normal. Ventricular rate is 68. [place] interval is 134 ms. QS duration 90 ms. QT durationof 140 ms. [place] is normal.) Discharge Plan Triage Chief Complaint: Shortness of Breath ED Provider: Paddy Milner Dx/Rx/DC Orders Clinical Impression: Pleural effusion on left, Obstructive Sleep Apnea-Hypopnea Syndrome, Chronic anemia, Lymphedema of both lower extremities, Type 2 diabetes mellitus, Coronaryartery disease, Congestive heart failure, Chronic kidney disease (CKD) stage G3a/A1, moderately decreased glomerular filtration rate (GFR) between 45-59 mL/min/1.73 square meter and albuminuria creatinine ratio less than 30 mg/g Prescriptions: No Action multivitamin,md-bmtk-sisfwmrw tablet tablet 1 tab PO QDAY melatonin 10 mg tablet, sublingual 10 mg PO QHS insulin lispro [Humalog KwikPen Insulin] 100 unit/mL insulin pen 5 unit subcut TIDAC Label Comments: if bs over 130 insulin glargine-yfgn 100 unit/mL (3 mL) insulin pen 14 unit subcut DAILY hydrochlorothiazide 25 mg tablet 25 mg PO DAILY aspirin 81 mg tablet,chewable 81 mg PO BREAKFAST ferrous sulfate 325 mg (65 mg iron) Capsule, Extended Release 65 mg PO DAILY latanoprost 0.005 % drops 1 drp EACH EYE HS carvedilol 25 mg tablet 25 mg PO BID Rx Instructions: must administer with a meal/food clopidogrel [Plavix] 75 mg tablet 75 mg PO DAILY doxazosin 8 mg tablet 8 mg PO QHS pramipexole 0.125 mg tablet 0.125 mg PO QHS sertraline 50 mg tablet 50 mg PO DAILY ezetimibe [Zetia] 10 mg tablet 10 mg PO QHS Rx Instructions: take at bedtime sennosides-docusate sodium [Stool Softener-Stimulant Laxat] 8.6-50 mg Tablet 2 tab PO BID PRN PRN (Reason: Constipation) Qty: 0 0RF amlodipine 5 mg Tablet 5 mg PO DAILY 30 Days Qty: 30 0RF acetaminophen 500 mg Tablet 1,000 mg PO Q6H PRN PRN (Reason: Pain Score 1-10) Qty: 0 0RF (DME) Handicap Placard See Rx Instructions .Route .MEDSUPPLY Qty: 1 0RF Rx Instructions: Length of time: 5 years (DME) pen needle, diabetic [BD Sanaz 2nd Gen Pen Needle] 32 gauge x 5/32 needle See Rx Instructions .ROUTE .MEDSUPPLY Qty: 50 2RF Rx Instructions: use once daily to adminster insulin as directed. gabapentin 100 mg capsule 100 mg PO BID Qty: 180 3RF gabapentin 300 mg capsule 300 mg PO 2100 Qty: 90 3RF losartan 25 mg tablet 25 mg PO DAILY 30 Days Qty: 90 3RF hydralazine 25 mg tablet 75 mg PO TID 30 Days Qty: 270 3RF Primary Care Provider: Jennifer Watt Referrals: Jennifer Watt MD [Primary Care Provider] - Disposition Disposition: Acute Care [facility] What to do if you have Problems For any increased pain, shortness of breath, bleeding, nausea or vomiting, chestpain, or any unexpected problems, contact your Primary Care Provider. Call [facility] ([phone]) or report to the closest Emergency Room. Call 911 if necessary. 04/05/22 1620 <Electronically signed by Paddy Milner MD> Cosigner Signature (if applicable): CC: Dr. Jennifer Watt MD ~ Signed [facility] Work Phone: [phone] 411-122610-13-2021 NoteHNO ID: [id number] Author: Curly Dennison [facility] Service: ? Author Type: Pharmacist Type: [...] are not present. Adherence: denies missed doses Pharmacy:?[facility] mail order? Rx coverage:?Medicare Affordability:?insulin and Victoza costly Diabetes supplies:?[facility] [employer] [facility] System:?none ACTIVE PROBLEM LIST Chronic Pain [...] to check blood pressure daily. - Insulin [place], Disposable, (BD ULTRA-FINE SANAZ PEN NEEDLE) 32 gauge x 5/32 Use [...] eyes daily at bedtime. (more content not included)...[facility]10-01-2021 Evaluation note* Diagnosis Onset Date Resolution Status Fatigue acute History of CVA (cerebrovascular accident) December, chronic Peripheral vascular occlusive disease chronic Polyneuropathy chronic Fatigue acute Obstructive Sleep Apnea-Hypopnea Syndrome acute Physical debility acute Right renal artery stenosis acute Chronic back pain chronic Essential hypertension chron ic History of CVA (cerebrovascular accident) December, 1 chronic Hyperlipidemia chronic Peripheral vascular occlusive disease chronic Polyneuropathy chronic Type 2 diabetes mellitus chr onic Obstructive Sleep Apnea-Hypopnea Syndrome acute Bradycardia acute Essential hypertension chron ic Hyperlipidemia chronic Right renal artery stenosis acute [facility] Work Phone: [phone] Evaluation note* Diagnosis Onset Date Resolution Status Right renal artery stenosis acute History of CVA (cerebrovascular accident) December, 1 chronic Peripheral vascular occlusive disease chronic Polyneuropathy chronic Bradycardia acute Dizziness acute Essential hypertension chron ic Hyperlipidemia chronic Bradycardia acute Essential hypertension chron ic Hyperlipidemia chronic [facility] Work Phone: [phone] 398-270710-01-2021 Evaluation note* Diagnosis Onset Date Resolution Status Elevated serum creatinine ac [place] Obstructive Sleep Apnea-Hypopnea Syndrome acute Physical debility acute Right renal artery stenosis acute History of CVA (cerebrovascular accident) December, 1 chronic Peripheral vascular occlusive disease chronic Polyneuropathy chronic Type 2 diabetes mellitus chr onic Iron deficiency acute Anemia chronic Fatigue chronic History of CVA (cerebrovascular accident) December, 1 chronic Polyneuropathy chronic Physical debility acute Urinary frequency acute History of CVA (cerebrovascular accident) December, 1 chronic Type 2 diabetes mellitus chr onic Aspiration pneumonia acute Accidental overdose of clonidine resolved Acute hypotension resolved Acute respiratory failure with hypoxia resolved NABILA (acute kidney injury) re solved Bradycardia resolved Near syncope resolved NABILA (acute kidney injury) ac [place] Aspiration into airway acute Aspiration pneumonia acute Contusion of rib on left side acute Dehydration acute Fall acute Generalized weakness acute Head injury acute History of aspiration pneumonia acute History of diabetes mellitus acute History of stroke acute Physical debility acute Unable to ambulate acute Acute on chronic renal insufficiency chronic Chronic anemia chronic Acute kidney injury acute Aspiration pneumonia acute BPH (benign prostatic hyperplasia) acute Cellulitis of left toe acute Coronary artery disease acut e Debility acute Dehydration acute Depression acute Diabetes mellitus acute Fall acute Glaucoma acute Hyperlipidemia acute Left hemiparesis acute Pain in left toe(s) acute Restless leg syndrome acute Right-sided cerebrovascular accident (CVA) acute Tinea unguium acute Chronic anemia chronic Hypertension chronic [facility] Work Phone: [phone]) 955-657410-01-2021 Evaluation note* Diagnosis Onset Date Resolution Status Elevated serum creatinine ac [place] Obstructive Sleep Apnea-Hypopnea Syndrome acute Physical debility acute Right renal artery stenosis acute History of CVA (cerebrovascular accident) December, 1 chronic Peripheral vascular occlusive disease chronic Polyneuropathy chronic Type 2 diabetes mellitus chr onic Iron deficiency acute Anemia chronic Fatigue chronic History of CVA (cerebrovascular accident) December, 1 chronic Polyneuropathy chronic Physical debility acute Urinary frequency acute History of CVA (cerebrovascular accident) December, 1 chronic Type 2 diabetes mellitus chr onic Aspiration pneumonia acute Accidental overdose of clonidine resolved Acute hypotension resolved Acute respiratory failure with hypoxia resolved NABILA (acute kidney injury) re solved Bradycardia resolved Near syncope resolved NABILA (acute kidney injury) ac [place] Aspiration into airway acute Aspiration pneumonia acute Contusion of rib on left side acute Dehydration acute Fall acute Generalized weakness acute Head injury acute History of aspiration pneumonia acute History of diabetes mellitus acute History of stroke acute Physical debility acute Unable to ambulate acute Acute on chronic renal insufficiency chronic Chronic anemia chronic BPH (benign prostatic hyperplasia) acute Coronary artery disease acut e Debility acute Depression acute Diabetes mellitus acute Glaucoma acute Hyperlipidemia acute Restless leg syndrome acute Chronic anemia chronic Hypertension chronic Acute kidney injury resolved Aspiration pneumonia resolve d Cellulitis of left toe resol [place] Dehydration resolved Fall resolved Left hemiparesis resolved Pain in left toe(s) resolved Right-sided cerebrovascular accident (CVA) resolved Tinea unguium resolved Coronary artery disease acut e Debility acute Depression acute Elevated serum creatinine ac [place] Generalized weakness acute History of aspiration pneumonia acute History of diabetes mellitus acute History of stroke acute Hyperlipidemia acute Obstructive Sleep Apnea-Hypopnea Syndrome acute Hypertension chronic Type 2 diabetes mellitus chr onic Acute kidney injury resolved Dehydration resolved Fall resolved Right-sided cerebrovascular accident (CVA) resolved Pneumonia acute SOB (shortness of breath) ac [place] Congestive heart failure acu te Coronary artery disease acut e Lymphedema of both lower extremities acute Obstructive Sleep Apnea-Hypopnea Syndrome acute Pleural effusion on left acu te Chronic anemia chronic [id number] chronic Type 2 diabetes mellitus chr onic [facility] Work Phone: [phone] 538-149110-01-2021 Evaluation note* Diagnosis Onset Date Resolution Status Elevated serum creatinine ac [place] Obstructive Sleep Apnea-Hypopnea Syndrome acute Physical debility acute Right renal artery stenosis acute History of CVA (cerebrovascular accident) December, 1 chronic Peripheral vascular occlusive disease chronic Polyneuropathy chronic Type 2 diabetes mellitus chr onic Iron deficiency acute Anemia chronic Fatigue chronic History of CVA (cerebrovascular accident) December, 1 chronic Polyneuropathy chronic Physical debility acute Urinary frequency acute History of CVA (cerebrovascular accident) December, 1 chronic Type 2 diabetes mellitus chr onic Aspiration pneumonia acute Accidental overdose of clonidine resolved Acute hypotension resolved Acute respiratory failure with hypoxia resolved NABILA (acute kidney injury) re solved Bradycardia resolved Near syncope resolved NABILA (acute kidney injury) ac [place] Aspiration into airway acute Aspiration pneumonia acute Contusion of rib on left side acute Dehydration acute Fall acute Generalized weakness acute Head injury acute History of aspiration pneumonia acute History of diabetes mellitus acute History of stroke acute Physical debility acute Unable to ambulate acute Acute on chronic renal insufficiency chronic Chronic anemia chronic BPH (benign prostatic hyperplasia) acute Coronary artery disease acut e Debility acute Depression acute Diabetes mellitus acute Glaucoma acute Hyperlipidemia acute Restless leg syndrome acute Chronic anemia chronic Hypertension chronic Acute kidney injury resolved Aspiration pneumonia resolve d Cellulitis of left toe resol [place] Dehydration resolved Fall resolved Left hemiparesis resolved Pain in left toe(s) resolved Right-sided cerebrovascular accident (CVA) resolved Tinea unguium resolved Coronary artery disease acut e Debility acute Depression acute Elevated serum creatinine ac [place] Generalized weakness acute History of aspiration pneumonia acute History of diabetes mellitus acute History of stroke acute Hyperlipidemia acute Obstructive Sleep Apnea-Hypopnea Syndrome acute Hypertension chronic Type 2 diabetes mellitus chr onic Acute kidney injury resolved Dehydration resolved Fall resolved Right-sided cerebrovascular accident (CVA) resolved Pneumonia acute SOB (shortness of breath) ac [place] Congestive heart failure acu te Coronary artery disease acut e Lymphedema of both lower extremities acute Obstructive Sleep Apnea-Hypopnea Syndrome acute Pleural effusion on left acu te Chronic anemia chronic [id number] chronic Hypertension chronic Type 2 diabetes mellitus chr onic [facility] Work Phone: [phone] Evaluation note* Diagnosis Onset Date Resolution Status Elevated serum creatinine ac [place] Physical debility acute Right renal artery stenosis acute History of CVA (cerebrovascular accident) December, 1 chronic Peripheral vascular occlusive disease chronic Polyneuropathy chronic Iron deficiency acute Anemia chronic Fatigue chronic History of CVA (cerebrovascular accident) December, 1 chronic Polyneuropathy chronic Physical debility acute Urinary frequency acute History of CVA (cerebrovascular accident) December, 1 chronic Aspiration pneumonia acute Accidental overdose of clonidine resolved Acute hypotension resolved Acute respiratory failure with hypoxia resolved NABILA (acute kidney injury) re solved Bradycardia resolved Near syncope resolved NABILA (acute kidney injury) ac [place] Aspiration into airway acute Aspiration pneumonia acute Contusion of rib on left side acute Dehydration acute Fall acute Generalized weakness acute Head injury acute History of aspiration pneumonia acute History of diabetes mellitus acute History of stroke acute Physical debility acute Unable to ambulate acute Acute on chronic renal insufficiency chronic Chronic anemia chronic BPH (benign prostatic hyperplasia) acute Debility acute Depression acute Diabetes mellitus acute Glaucoma acute Hyperlipidemia acute Restless leg syndrome acute Acute kidney injury resolved Aspiration pneumonia resolve d Cellulitis of left toe resol [place] Dehydration resolved Fall resolved Left hemiparesis resolved Pain in left toe(s) resolved Right-sided cerebrovascular accident (CVA) resolved Tinea unguium resolved Debility acute Depression acute Elevated serum creatinine ac [place] Generalized weakness acute History of aspiration pneumonia acute History of diabetes mellitus acute History of stroke acute Hyperlipidemia acute Acute kidney injury resolved Dehydration resolved Fall resolved Right-sided cerebrovascular accident (CVA) resolved Pneumonia acute SOB (shortness of breath) ac [place] [id number] resolved Lymphedema of both lower extremities resolved Pleural effusion on left res olved Acute kidney injury acute Acute respiratory failure with hypoxia acute BPH (benign prostatic hyperplasia) acute Chronic kidney disease, stage 3b acute Debility acute Depression acute Diabetes mellitus acute Glaucoma acute Hyperlipidemia acute Iron deficiency anemia acute Pleural effusion, left acute Restless leg syndrome acute Stroke acute Acute on chronic diastolic congestive heart failure chronic Hypertension [facility] Work Phone: [phone] Evaluation note* Diagnosis Onset Date Resolution Status Physical debility acute Urinary frequency acute History of CVA (cerebrovascular accident) December, 1 chronic Aspiration pneumonia acute Accidental overdose of clonidine resolved Acute hypotension resolved Acute respiratory failure with hypoxia resolved NABILA (acute kidney injury) re solved Bradycardia resolved Near syncope resolved NABILA (acute kidney injury) ac [place] Aspiration into airway acute Aspiration pneumonia acute Contusion of rib on left side acute Dehydration acute Fall acute Generalized weakness acute Head injury acute History of aspiration pneumonia acute History of diabetes mellitus acute History of stroke acute Physical debility acute Unable to ambulate acute Acute on chronic renal insufficiency chronic Chronic anemia chronic BPH (benign prostatic hyperplasia) acute Debility acute Depression acute Diabetes mellitus acute Glaucoma acute Hyperlipidemia acute Restless leg syndrome acute Acute kidney injury resolved Aspiration pneumonia resolve d Cellulitis of left toe resol [place] Dehydration resolved Fall resolved Left hemiparesis resolved Pain in left toe(s) resolved Right-sided cerebrovascular accident (CVA) resolved Tinea unguium resolved Debility acute Depression acute Elevated serum creatinine ac [place] Generalized weakness acute History of aspiration pneumonia acute History of diabetes mellitus acute History of stroke acute Hyperlipidemia acute Acute kidney injury resolved Dehydration resolved Fall resolved Right-sided cerebrovascular accident (CVA) resolved Pneumonia acute SOB (shortness of breath) ac [place] [id number] resolved Lymphedema of both lower extremities resolved Pleural effusion on left res olved BPH (benign prostatic hyperplasia) acute Chronic kidney disease, stage 3b acute Debility acute Depression acute Diabetes mellitus acute Glaucoma acute Hyperlipidemia acute Iron deficiency anemia acute Restless leg syndrome acute Stroke acute Hypertension chronic Acute kidney injury resolved Acute on chronic diastolic congestive heart failure resolved Acute respiratory failure with hypoxia resolved Pleural effusion, left resol [place]ansa BPH (benign prostatic hyperplasia) acute Chronic kidney disease, stage 3b acute Depression acute Diabetes mellitus acute Hyperlipidemia acute Iron deficiency anemia acute Physical debility acute Pneumonia acute Recurrent left pleural effusion acute History of CVA (cerebrovascular accident) December, 1 chronic Hypertension chronic Peripheral vascular occlusive disease [facility] Work Phone: [phone] Evaluation note* Diagnosis Onset Date Resolution Status Fatigue chronic History of CVA (cerebrovascular accident) December, 1 chronic Polyneuropathy chronic Bradycardia acute BPH (benign prostatic hyperplasia) acute Chronic kidney disease, stage 3b acute Debility acute Depression acute Diabetes mellitus acute Fall acute Generalized weakness acute Hyperlipidemia acute Iron deficiency anemia acute Right renal artery stenosis acute Stroke acute Hypertension [facility] Work Phone: [phone] Evaluation note* Diagnosis Onset Date Resolution Status Fatigue chronic History of CVA (cerebrovascular accident) December, 1 chronic Polyneuropathy chronic Bradycardia acute BPH (benign prostatic hyperplasia) acute Chronic kidney disease, stage 3b acute Debility acute Depression acute Diabetes mellitus acute Fall acute Generalized weakness acute Hyperlipidemia acute Iron deficiency anemia acute Right renal artery stenosis acute Stroke acute Hypertension chronic Chronic venous stasis acute Diabetes mellitus acute Stroke acute Chronic stasis dermatitis ch ronic History of CVA (cerebrovascular accident) December, 1 chronic Hypertension chronic Peripheral vascular occlusive disease chronic Fever acute Urinary retention acute Weakness acute [facility] Work Phone: [phone] Evaluation note* Diagnosis Onset Date Resolution Status Fatigue chronic History of CVA (cerebrovascular accident) December, 1 chronic Polyneuropathy chronic Bradycardia acute BPH (benign prostatic hyperplasia) acute Chronic kidney disease, stage 3b acute Debility acute Depression acute Diabetes mellitus acute Fall acute Generalized weakness acute Hyperlipidemia acute Iron deficiency anemia acute Right renal artery stenosis acute Stroke acute Hypertension chronic Chronic venous stasis acute Diabetes mellitus acute Stroke acute Chronic stasis dermatitis ch ronic History of CVA (cerebrovascular accident) December, 1 chronic Hypertension chronic Peripheral vascular occlusive disease chronic NABILA (acute kidney injury) ac tazlina BPH (benign prostatic hyperplasia) acute Debility acute Depression acute Diabetes mellitus acute Glaucoma acute Heart failure with preserved ejection fraction acute Hyperlipidemia acute Iron deficiency anemia acute Left hemiplegia acute Neuropathic pain acute Obstructive sleep apnea acut e Restless leg syndrome acute Stroke acute Hypertension [facility] Work Phone: [phone]) 881-708610-01-2021 Evaluation note* Diagnosis Onset Date Resolution Status Chronic venous stasis acute Diabetes mellitus acute Stroke acute Chronic stasis dermatitis ch ronic History of CVA (cerebrovascular accident) December, 1 chronic Hypertension chronic Peripheral vascular occlusive disease chronic NABILA (acute kidney injury) ac tazlina BPH (benign prostatic hyperplasia) acute Debility acute Depression acute Diabetes mellitus acute Glaucoma acute Heart failure with preserved ejection fraction acute Hyperlipidemia acute Left hemiplegia acute Neuropathic pain acute Obstructive sleep apnea acut e Restless leg syndrome acute Stroke acute Hypertension chronic Iron deficiency anemia chron ic Fatigue chronic History of CVA (cerebrovascular accident) December, 1 chronic Iron deficiency anemia chron ic Polyneuropathy chronic BPH (benign prostatic hyperplasia) acute Chronic kidney disease, stage 3b acute Diabetes mellitus acute Hyperlipidemia acute Iron deficiency acute Stroke acute Urinary (tract) obstruction acute Urinary retention acute Hypertension chronic Peripheral vascular occlusive disease [facility] Work Phone: [phone]) 212-113009-16-2021 NoteHNO ID: [id number] Author: Dione Chang [facility] Service: ? Author Type: Pharmacist Type: [...] are not present Adherence: denies missed doses Pharmacy:?[facility] mail order? Rx coverage:?Medicare Affordability:?insulin and Victoza costly Diabetes supplies:?[employer] System:?none Past medical, family and social [...] Inject 30 Units subcutaneously every morning. Insulin [place], Disposable, (BD ULTRA-FINE SANAZ PEN NEEDLE) 32 gauge x 5/32 Use to inject insulin and Victoza, 2 injections per day. Lancets ([employer] MediaTOUCH ULTRASOFT LANCETS) lancets Test blood sugar four times daily. Uncontrolled diabetes type 2 on insulin latanoprost (XALATAN) 0.005 % ophthalmic solution Use 1 Drop in both eyes daily at bedtime. metFORM (more content not included)...[facility]08-12-2021 Note HNO ID: [id number] Author: Dione Chang [facility] Service: ? Author Type: Pharmacist Type: Progress Notes Filed: 10/23/2020 4:17 PM Note Text: Patient consents to pharmacy collaborative practice agreement. REASON FOR CONSULT: DM?and BP GOALS: A1c CONSULTING PROVIDER:?Dr.?Jeffery Giraldo Date of Consult:?01/30/19 ? Francisco Thomas [...] Patient has moved amlodipine to [facility] and is not missing any doses. [...] ? SMBG?s: Date Fasting AM 10/23 125 811 143 8/10 111 8/9 125 88 107 8/7 130 8/6 131 8/5 137 [...] not present Adherence: denies missed doses Pharmacy: [facility] Rx coverage: Medicare Affordability: insulin and Victoza costly Diabetes supplies: [employer] System: none ACTIVE PROBLEM LIST Chronic Pain [...] check blood pressure daily. blood sugar diagnostic ([employer] MediaTOUCH ULTRA TEST) test strip Use to check blood sugar three times daily. hydroCHLOROthiazide (HYDRODIURIL, ESIDRIX) 25 mg tablet Take 1 tablet by mouth once daily. insulin glargine (BASAGLAR KWIKPEN U-100 INSULIN) 100 unit/mL (3 mL) Inject 30 Units subcutaneously every morning. Insulin [place], Disposable, (BD ULTRA-FINE SANAZ PEN NEEDLE) 32 gauge x /32 Use [...] potassium chloride ER (KLOR-CON (more content not included)...[facility]07-08-2021 NoteHNO ID: [id number] Author: Dione Chang [facility] Service: ? Author Type: Pharmacist Type: [...] 08/30 185/94 80 186/93 83 186/91 77 08/29 140/71 72 131/69 68 131/67 72 Current [...] out of pocket; doesn't happen often Pharmacy: [facility] order Rx coverage: Medicare Affordability: insulin and Victoza costly Diabetes supplies: [employer] System: none ACTIVE PROBLEM LIST Chronic Pain [...] check blood pressure daily. blood sugar diagnostic (SIRS-LabUCH ULTRA TEST) test strip Use to check blood sugar three times daily. hydroCHLOROthiazide (HYDRODIURIL, ESIDRIX) 25 mg tablet Take 1 tablet by mouth once daily. insulin glargine (BASAGLAR KWIKPEN U-100 INSULIN) 100 unit/mL (3 mL) Inject 30 Units subcutaneously every morning. Insulin [place], Disposable, (BD ULTRA-FINE SANAZ PEN NEEDLE) 32 gauge x 5/32 Use [...] (176 lb) BMI: 23.8 (more content not included)...[facility]06-16-2021 NoteHNO ID: [id number] Author: Curly Dennison [facility] Service: ? Author Type: Pharmacist Type: [...] 152 /15 101 /14 136 /13 115 12 126 /11 105 6/10 123 6/9 154 6/8 130 6/7 97 6/6 119 6/5 95 6/4 119 6/3 88 Hypoglycemia: denies ? Home readings: Date BP Pulse 08/23 156/77 129/75 71 72 08/22 166/83 69 9 170/88 168/85 69 69 6/8 180/88 168/88 [...] On ASA:?No ? MEDICATIONS:? Adherence:?denies?missed doses. ? Pharmacy:?[facility] order? Rx coverage:?Medicare ? Affordability:?insulin/victoza more [...] to check blood pressure daily. - Insulin [place], Disposable, (BD ULTRA-FINE SANAZ PEN NEEDLE) 32 gauge x Use to inject insulin and Victoza, 2 injections per day. - potassium chloride ER (KLOR-CON M20) 20 mEq tablet Take 1 tablet by mouth twice daily. - traMADol (ULTRAM) 50 mg tablet Take 50-100 mg by mouth every 6 hours as needed. - blood sugar diagnostic (J[employer] MediaTOUCH ULTRA TEST) test strip Use to check blood sugar three times daily. - Lancets ([employer] MediaTOUCH ULTRASOFT LANCETS) lancets Test blood sugar four [...] Potassium 4.7 06/24/2020 Chlori (more content not included)...[facility]06-14-2021 Note HNO ID: [id number] Author: Ivett Laboy LPN Service: ? Author [...] monitor today off by 10mmg, [facility]21 NoteHNO ID: [id number] Author: Emelyn Giraldo Service: ? Author Type: [...] (E11.22, E11.65, N18.2, Z79.4) Uncontrolled type 2 diabetes [...] Attestation: By signing my name below, Grecia Howe attest that this documentation has been prepared under the direction and in the presence of Butch Giraldo M.D. Electronically Signed: Eleazar Alamo. June 24, 2020 1:05 PM . Provider Attestation: Emelyn Howe MD, personally performed the services described in this documentation. All medical record entries made by the scribe were at my direction and in my presence. I have reviewed the chart and discharge instructions (if applicable) and agree that the record reflects my personal performance and is accurate and complete. Electronically Signed: Emelyn Giraldo MD. July 01, 2020 11:02 [facility]03-28-2021 NoteHNO ID: [id number] Author: Jackie White Service: ? Author Type: Attic Blower Type: Progress Notes Filed: 06/08/2020 1:01 PM Note Text: POPULATION HEALTH NAVIGATION OUTREACH Action/ Patient is due for dilated retinal exam. Patient had ALLYSSA with Dr. Santiago in [place] on 02/05/2020. Will have results sent Contact made with patient or family member? YES Pt identified by name and : YES Outreach Outcome/Action Spoke to patient or caregiver: Patient scheduled Reason for Outreach Care Gap or Scheduling/Wellness visits Payer: Payor: [employer] MEDICARE / Plan: AET[employer] MEDICARE PPO / [...] future healthcare decisions with a power of admitted attorneys, living will, or advance directives? No. Please bring a copy to your next appointment or email to [email or web address] Referrals: N/A Message Sent to Practice: NO Navigation Signature: Jackie White Population Health Navigator June 08, 2020 1:00 [facility]03-28-2021 NotePatient Outreach (JUNIORNAV) FRANCISCO THOMAS ([id number]) 1940 M Date Time Provider Department 06/08/20 JACKIE WHITE During your visit today, we recorded the following information about you: Jackie White Population Health Navigator 06/08/2020 1:01 PM Signed POPULATION HEALTH NAVIGATION OUTREACH Action/ Patient is due for dilated retinal exam. Patient had ALLYSSA with Dr. Santiago in [place] on 02/05/2020. Will have results sent Contact made with patient or family member? YES Pt identified by name and : YES Outreach Outcome/Action Spoke to patient or caregiver: Patient scheduled Reason for Outreach Care Gap or Scheduling/Wellness visits Payer: Payor: [employer] MEDICARE / Plan: AETNA MEDICARE PPO / [...] future healthcare decisions with a power of admitted attorneys, living will, or advance directives? No. Please bring a copy to your next appointment or email to [email or web address] Referrals: N/A Message Sent to Practice: NO Navigation Signature: Jackie White, Population Health Navigator June 08, 2020 1:00 [...] KIT Use to check blood pressure d* SUSUAGLAR ALINIKPEN U-100 INSULI* Inject 25 Units subcutaneousl* PEN [...] JOCELYN POPULATION HEALTH NAVIGATORJACKIE on 06/08/20 [facility]02-02-2021 NotePatient Outreach (COOCC3) FRANCISCO THOMAS ([id number]) 1940 M Date Time Provider Department 04/15/20 IVORY MCNEAL During your visit today, we recorded [...] Fully Assessed Order(s):SARS-COVID VACCINE 1ST DOSE APPT [[id number]] Order #: [id number] FUTURE Prescriptions as of 04/15/2020 Sig: LOSARTAN [...] type 2, uncontrolled, w*02/19/2015 Encounter Status:Closed by KAMILA SHERWOOD on 04/18/20[facility] Consult note Author Amalia Somers [facility] November 03, 2022 1:16pm Note Date/Time November 03, 2022 1: 16pm [facility] Medical Records Department [address] [facility] [place] [address] Counseling Note - Pharmacy 11/03/22 1316 MR#: [id number] Acct: [id number] Name: FRANCISCO THOMAS Rep #:[id number] : 1940 82 From: Amalia Somers PCP: Dr. Jennifer Watt MD Status:ADM IN Y Location: [place] [address] [place]acy [place] Med Reconciliation Pharmacy Service has performed discharge medication reconciliation for this patient. The patient's discharge medication list was reviewed for discrepancies and discrepancies were resolved. Medications at Discharge Home Medications multivitamin,[id number] (Complete Multivitamin tablet) 1 tab PO QDAY supplement 03/03/17 aspirin 81 mg chewable tablet 81 mg PO BREAKFAST heart health 01/02/21 Handicap Placard #1 ea 02/12/21 doxazosin 8 mg tablet 8 mg PO QHS bph 02/24/22 ezetimibe 10 mg tablet (Zetia) 10 mg PO QHS cholesterol 02/24/22 latanoprost 0.005 % eye drops 1 drp EACH EYE HS eyes 02/24/22 pramipexole 0.125 mg tablet 0.125 mg PO QHS parkinsons 02/24/22 sertraline 50 mg tablet 50 mg PO QHS mood 02/24/22 gabapentin 100 mg capsule 100 mg PO BID pain #180 caps 03/18/22 gabapentin 300 mg capsule 300 mg PO 2100 pain #90 caps 03/18/22 losartan 25 mg tablet 25 mg PO DAILY BP 04/12/22 clopidogrel 75 mg tablet (Plavix) 75 mg PO DAILY blood thinner #90 tabs 06/07/22 pen needle, diabetic 32 gauge x /32 (BD Sanaz 2nd Gen Pen Needle) #50 ea 06/17/22 clonidine HCl 0.1 mg tablet 0.1 mg PO BID #60 tabs 07/09/22 furosemide 40 mg tablet (Lasix) 40 mg PO DAILY #60 tabs 08/03/22 hydralazine 25 mg tablet 75 mg (3 x 25 mg) PO TID BP #270 tabs 08/05/22 carvedilol 6.25 mg tablet 6.25 mg PO BID #60 tabs 08/12/22 triamcinolone acetonide 0.1 % topical cream 1 applic topical BID 10 days #30 grams 10/12/22 amlodipine 10 mg tablet 10 mg PO DAILY BP #90 tabs 10/15/22 oxygen #1 ea 10/26/22 insulin glargine 100 unit/mL (3 mL) subcutaneous pen (Basaglar KwikPen U-100 Insulin) 14 unit (0.14 mL) subcut DAILY #15 mL 11/03/22 insulin lispro 100 unit/mL subcutaneous pen (Humalog KwikPen (U-100) Insulin) 4 unit (0.04 mL) subcut TIDAC PRN diabetes #15 mL 11/03/22 11/03/22 1316 <Electronically signed by Amalia Somers> Date _ Amalia Somers Cosigner Signature (if applicable): Date CC: ~ Signed [facility] Work Phone: Evaluation note* Diagnosis Onset Date Resolution Status Polyneuropathy chronic Obstructive Sleep Apnea-Hypopnea Syndrome acute Obstructive Sleep Apnea-Hypopnea Syndrome acute Bradycardia acute Essential hypertension chron ic Peripheral vascular occlusive disease chronic Fatigue acute History of CVA (cerebrovascular accident) December, 1 chronic Peripheral vascular occlusive disease chronic Polyneuropathy chronic [facility] Work Phone: Evaluation note* Diagnosis Onset Date Resolution Status Obstructive Sleep Apnea-Hypopnea Syndrome acute Obstructive Sleep Apnea-Hypopnea Syndrome acute Bradycardia acute Essential hypertension chron ic Peripheral vascular occlusive disease chronic Fatigue acute History of CVA (cerebrovascular accident) December, 1 chronic Peripheral vascular occlusive disease chronic Polyneuropathy [facility] Work Phone: Evaluation note* Diagnosis Onset Date Resolution Status Obstructive Sleep Apnea-Hypopnea Syndrome acute Bradycardia acute Essential hypertension chron ic Peripheral vascular occlusive disease chronic Fatigue acute History of CVA (cerebrovascular accident) December, 1 chronic Peripheral vascular occlusive disease chronic Polyneuropathy chronic Fatigue acute Obstructive Sleep Apnea-Hypopnea Syndrome acute Physical debility acute Right renal artery stenosis acute Chronic back pain chronic Essential hypertension chron ic History of CVA (cerebrovascular accident) December, 1 chronic Hyperlipidemia chronic Peripheral vascular occlusive disease chronic Polyneuropathy chronic Type 2 diabetes mellitus chr onic Obstructive Sleep Apnea-Hypopnea Syndrome acute Bradycardia acute Essential hypertension chron ic Hyperlipidemia chronic Right renal artery stenosis acute [facility] Work Phone: Evaluation note* Diagnosis Onset Date Resolution Status Fatigue acute Obstructive Sleep Apnea-Hypopnea Syndrome acute Physical debility acute Right renal artery stenosis acute Chronic back pain chronic Essential hypertension chron ic History of CVA (cerebrovascular accident) December, 1 chronic Hyperlipidemia chronic Peripheral vascular occlusive disease chronic Polyneuropathy chronic Type 2 diabetes mellitus chr onic Obstructive Sleep Apnea-Hypopnea Syndrome acute Bradycardia acute Essential hypertension chron ic Hyperlipidemia chronic Right renal artery stenosis acute History of CVA (cerebrovascular accident) December, 1 chronic Peripheral vascular occlusive disease chronic Polyneuropathy chronic Bradycardia acute Dizziness acute Essential hypertension chron ic Hyperlipidemia [facility] Work Phone: Evaluation note* Diagnosis Onset Date Resolution Status Bradycardia acute Essential hypertension chron ic Hyperlipidemia chronic Elevated serum creatinine ac tazlina Obstructive Sleep Apnea-Hypopnea Syndrome acute Physical debility acute Right renal artery stenosis acute Essential hypertension chron ic History of CVA (cerebrovascular accident) December, 1 chronic Hyperlipidemia chronic Peripheral vascular occlusive disease chronic Polyneuropathy chronic Type 2 diabetes mellitus chr onic Iron deficiency acute Anemia chronic Fatigue chronic History of CVA (cerebrovascular accident) December, 1 chronic Polyneuropathy [facility] Work Phone: Evaluation note* Diagnosis Onset Date Resolution Status Bradycardia acute Essential hypertension chron ic Hyperlipidemia chronic Elevated serum creatinine ac tazlina Obstructive Sleep Apnea-Hypopnea Syndrome acute Physical debility acute Right renal artery stenosis acute Essential hypertension chron ic History of CVA (cerebrovascular accident) December, 1 chronic Hyperlipidemia chronic Peripheral vascular occlusive disease chronic Polyneuropathy chronic Type 2 diabetes mellitus chr onic Iron deficiency acute Anemia chronic Fatigue chronic History of CVA (cerebrovascular accident) December, 1 chronic Polyneuropathy chronic Physical debility acute Urinary frequency acute Essential hypertension chron ic History of CVA (cerebrovascular accident) December, 1 chronic Type 2 diabetes mellitus chr onic Accidental overdose of clonidine acute Acute hypotension acute NABILA (acute kidney injury) ac tazlina Aspiration pneumonia acute Bradycardia acute Near syncope acute Ventricular tachycardia seen on handtools repairer February 20, 2021 acute Essential hypertension chron ic Hyperlipidemia [facility] Work Phone: Evaluation note* Diagnosis Onset Date Resolution Status Bradycardia acute Essential hypertension chron ic Hyperlipidemia chronic Elevated serum creatinine ac tazlina Obstructive Sleep Apnea-Hypopnea Syndrome acute Physical debility acute Right renal artery stenosis acute Essential hypertension chron ic History of CVA (cerebrovascular accident) December, 1 chronic Hyperlipidemia chronic Peripheral vascular occlusive disease chronic Polyneuropathy chronic Type 2 diabetes mellitus chr onic Iron deficiency acute Anemia chronic Fatigue chronic History of CVA (cerebrovascular accident) December, 1 chronic Polyneuropathy chronic Physical debility acute Urinary frequency acute Essential hypertension chron ic History of CVA (cerebrovascular accident) December, 1 chronic Type 2 diabetes mellitus chr onic Accidental overdose of clonidine acute Acute hypotension acute Acute respiratory failure with hypoxia acute NABILA (acute kidney injury) ac tazlina Aspiration pneumonia acute Bradycardia acute Near syncope acute Ventricular tachycardia seen on handtools repairer February 20, 2021 acute Essential hypertension chron ic Hyperlipidemia [facility] Work Phone: Evaluation note* Diagnosis Onset Date Resolution Status Aspiration pneumonia acute Accidental overdose of clonidine resolved Acute hypotension resolved Acute respiratory failure with hypoxia resolved NABILA (acute kidney injury) re solved Bradycardia resolved Near syncope resolved NABILA (acute kidney injury) ac tazlina Aspiration into airway acute Aspiration pneumonia acute Contusion of rib on left side acute Dehydration acute Fall acute Generalized weakness acute Head injury acute History of aspiration pneumonia acute History of diabetes mellitus acute History of stroke acute Physical debility acute Unable to ambulate acute Acute on chronic renal insufficiency chronic Chronic anemia chronic BPH (benign prostatic hyperplasia) acute Debility acute Depression acute Diabetes mellitus acute Glaucoma acute Hyperlipidemia acute Restless leg syndrome acute Acute kidney injury resolved Aspiration pneumonia resolve d Cellulitis of left toe resol hansa Dehydration resolved Fall resolved Left hemiparesis resolved Pain in left toe(s) resolved Right-sided cerebrovascular accident (CVA) resolved Tinea unguium resolved Debility acute Depression acute Elevated serum creatinine ac tazlina Generalized weakness acute History of aspiration pneumonia acute History of diabetes mellitus acute History of stroke acute Hyperlipidemia acute Acute kidney injury resolved Dehydration resolved Fall resolved Right-sided cerebrovascular accident (CVA) resolved Pneumonia acute SOB (shortness of breath) ac tazlina [id number] resolved Lymphedema of both lower extremities resolved Pleural effusion on left res olved BPH (benign prostatic hyperplasia) acute Chronic kidney disease, stage 3b acute Debility acute Depression acute Diabetes mellitus acute Glaucoma acute Hyperlipidemia acute Iron deficiency anemia acute Restless leg syndrome acute Stroke acute Hypertension chronic Acute kidney injury resolved Acute on chronic diastolic congestive heart failure resolved Acute respiratory failure with hypoxia resolved Pleural effusion, left resol hansa BPH (benign prostatic hyperplasia) acute Chronic kidney disease, stage 3b acute Depression acute Diabetes mellitus acute Hyperlipidemia acute Iron deficiency anemia acute Physical debility acute Pneumonia acute Recurrent left pleural effusion acute History of CVA (cerebrovascular accident) December, 1 chronic Hypertension chronic Peripheral vascular occlusive disease chronic [facility] Work Phone: Evaluation note* Diagnosis Onset Date Resolution Status Pneumonia acute SOB (shortness of breath) ac tazlina [id number] resolved Lymphedema of both lower extremities resolved Pleural effusion on left res olved BPH (benign prostatic hyperplasia) acute Chronic kidney disease, stage 3b acute Debility acute Depression acute Diabetes mellitus acute Glaucoma acute Hyperlipidemia acute Iron deficiency anemia acute Restless leg syndrome acute Stroke acute Hypertension chronic Acute kidney injury resolved Acute on chronic diastolic congestive heart failure resolved Acute respiratory failure with hypoxia resolved Pleural effusion, left resol hansa BPH (benign prostatic hyperplasia) acute Chronic kidney disease, stage 3b acute Depression acute Diabetes mellitus acute Hyperlipidemia acute Iron deficiency anemia acute Physical debility acute Pneumonia acute Recurrent left pleural effusion acute History of CVA (cerebrovascular accident) December, 1 chronic Hypertension chronic Peripheral vascular occlusive disease chronic Fatigue chronic History of CVA (cerebrovascular accident) December, 1 chronic Polyneuropathy [facility] Work Phone: Evaluation note* Diagnosis Onset Date Resolution Status Bradycardia acute BPH (benign prostatic hyperplasia) acute Chronic kidney disease, stage 3b acute Debility acute Depression acute Diabetes mellitus acute Fall acute Generalized weakness acute Hyperlipidemia acute Right renal artery stenosis acute Stroke acute Hypertension chronic Iron deficiency anemia chron ic Chronic venous stasis acute Diabetes mellitus acute Stroke acute Chronic stasis dermatitis ch ronic History of CVA (cerebrovascular accident) December, 1 chronic Hypertension chronic Peripheral vascular occlusive disease chronic NABILA (acute kidney injury) ac tazlina BPH (benign prostatic hyperplasia) acute Debility acute Depression acute Diabetes mellitus acute Glaucoma acute Heart failure with preserved ejection fraction acute Hyperlipidemia acute Left hemiplegia acute Neuropathic pain acute Obstructive sleep apnea acut e Restless leg syndrome acute Stroke acute Hypertension chronic Iron deficiency anemia chron ic Fatigue chronic History of CVA (cerebrovascular accident) December, 1 chronic Iron deficiency anemia chron ic Polyneuropathy chronic BPH (benign prostatic hyperplasia) acute Chronic kidney disease, stage 3b acute Diabetes mellitus acute Hyperlipidemia acute Iron deficiency acute Stroke acute Urinary (tract) obstruction acute Urinary retention acute Hypertension chronic Peripheral vascular occlusive disease [facility] Work Phone: Evaluation note* Diagnosis Onset Date Resolution Status NABILA (acute kidney injury) ac tazlina BPH (benign prostatic hyperplasia) acute Debility acute Depression acute Diabetes mellitus acute Glaucoma acute Heart failure with preserved ejection fraction acute Hyperlipidemia acute Left hemiplegia acute Neuropathic pain acute Obstructive sleep apnea acut e Restless leg syndrome acute Stroke acute Hypertension chronic Iron deficiency anemia chron ic Fatigue chronic History of CVA (cerebrovascular accident) December, 1 chronic Iron deficiency anemia chron ic Polyneuropathy chronic BPH (benign prostatic hyperplasia) acute Chronic kidney disease, stage 3b acute Diabetes mellitus acute Hyperlipidemia acute Iron deficiency acute Stroke acute Urinary (tract) obstruction acute Urinary retention acute Hypertension chronic 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 Essential hypertension chron ic Hyperlipidemia [facility] Work Phone: Evaluation note* Diagnosis Onset Date Resolution Status Bradycardia chronic Essential hypertension chron ic Hyperlipidemia chronic BPH (benign prostatic hyperplasia) acute Chronic kidney disease, stage 3b acute Chronic venous stasis acute Depression acute Diabetes mellitus acute Hyperlipidemia chronic Iron deficiency acute Stroke acute Essential hypertension chron ic History of CVA (cerebrovascular accident) December, 1 chronic Hypertension chronic Peripheral vascular occlusive disease chronic Fatigue chronic Iron deficiency anemia [facility] Work Phone: Evaluation note* Diagnosis Onset Date Resolution Status BPH (benign prostatic hyperplasia) acute Chronic kidney disease, stage 3b acute Chronic venous stasis acute Depression acute Diabetes mellitus acute Hyperlipidemia chronic Iron deficiency acute Stroke acute Essential hypertension chron ic History of CVA (cerebrovascular accident) December, 1 chronic Hypertension chronic Peripheral vascular occlusive disease chronic Fatigue chronic Iron deficiency anemia [facility] Work Phone: Evaluation note* Diagnosis Onset Date Resolution Status Fatigue acute Iron deficiency anemia chron ic Anemia acute Bradycardia acute CHF (congestive heart failure) acute Hypoxemia acute Weakness acute [facility] Work Phone: Hospital Discharge instructions Additional Instructions Discharge home with 03/10/2022, [facility] Work Phone: Hospital Discharge instructions Additional Instructions Discharge home with 11/12/2022, [facility], [facility] Work Phone: Reason for referral (narrative)No reason for [facility]: Summary Purpose Family History No Family History Records Found Relationship Condition Age at Onset Recorded Date/T julian mother Hypertension Unknown Malignant neoplasm Unknown father Cardiac disease Unknown Diabetes mellitus Unknown Advance Directives No Advanced Directives Records Found Advance Directive Response Recorded Date/ Time Name of Medical Power of Mechanical Integrity Specialist Abigail Thomas April 24, 2021 1:29pm Name of Medical Power of Mechanical Integrity Specialist May 01, 2021 3:40pm Name of Medical Power of Mechanical Integrity Specialist May 02, 2021 3:19pm Living Will Yes May 22, 2021 9:03pm Power of Mechanical Integrity Specialist Yes May 22 9:03pm Advance Directive Response Recorded Date/ Time Name of Medical Power of Mechanical Integrity Specialist Abigail Thomas April 24, 2021 1:29pm Name of Medical Power of Mechanical Integrity Specialist May 01, 2021 3:40pm Name of Medical Power of Mechanical Integrity Specialist May 02, 2021 3:19pm Name of Medical Power of Mechanical Integrity Specialist May 22, 2021 9:03pm Advance Directives Yes August 05 7:05am Living Will Yes August 05, 2021 7 :05am Power of Mechanical Integrity Specialist Yes August 05, 2021 7:05am Advance Directive Response Recorded Date/ Time Name of Medical Power of Mechanical Integrity Specialist May 22, 2021 9:03pm Advance Directives on File Yes July 132021 7:05am Name of Medical Power of Mechanical Integrity Specialist Abigail Thomas- Spouse August 05, 2021 7:05am Advance Directives Yes August 05 7:05am Living Will Yes August 05, 2021 7 :05am Power of Mechanical Integrity Specialist Yes August 05, 2021 7:05am Advance Directive Response Recorded Date/ Time Advance Directives on File Yes July 132021 7:05am Name of Medical Power of Mechanical Integrity Specialist Abigail Thomas- Spouse August 05, 2021 7:05am Advance Directives Yes August 05 7:05am Living Will Yes August 05, 2021 7 :05am Power of Mechanical Integrity Specialist Yes August 05, 2021 7:05am Advance Directive Response Recorded Date/ Time Advance Directives Yes August 05 6:05am Living Will Yes August 05, 2021 6 :05am Power of Mechanical Integrity Specialist Yes August 05, 2021 6:05am Advance Directive Response Recorded Date/ Time Name of Medical Power of Mechanical Integrity Specialist Lurdes February 16, 2022 6:11pm Advance Directives Yes August 05 6:05am Living Will Yes February 16 6:11pm Power of Mechanical Integrity Specialist Yes February 16, 2022 6:11pm Advance Directive Response Recorded Date/ Time Name of Medical Power of Mechanical Integrity Specialist [place] February 16, 2022 6:11pm Name of Medical Power of Mechanical Integrity Specialist Abigail Graw February 24, 2022 5:04pm Name of Medical Power of Mechanical Integrity Specialist Abigail Graw, March 01, 2022 3:23pm Advance Directives Yes August 05 6:05am Living Will Yes March 01 3:23pm Power of Mechanical Integrity Specialist Yes March 01, 2022 3:23pm Advance Directive Response Recorded Date/ Time Name of Medical Power of Mechanical Integrity Specialist [place] February 16, 2022 6:11pm Name of Medical Power of Mechanical Integrity Specialist Abigail Graw February 24, 2022 5:04pm Name of Medical Power of Mechanical Integrity Specialist Abigail Gonzalezw, March 01, 2022 3:23pm Name of Medical Power of Mechanical Integrity Specialist April 05, 2022 12:10pm Advance Directives Yes August 05 6:05am Living Will Yes April 05 12:10pm Power of Mechanical Integrity Specialist Yes April 05, 2022 12:10pm Advance Directive Response Recorded Date/ Time Name of Medical Power of Mechanical Integrity Specialist [place] February 16, 2022 6:11pm Name of Medical Power of Mechanical Integrity Specialist Abigail Thomas February 24, 2022 5:04pm Name of Medical Power of Mechanical Integrity Specialist Abigail Thomas, March 01, 2022 3:23pm Name of Medical Power of Mechanical Integrity Specialist April 05, 2022 6:26pm Advance Directives Yes August 05 6:05am Living Will Yes April 05 6:26pm Power of Mechanical Integrity Specialist Yes April 05, 2022 6:26pm Advance Directive Response Recorded Date/ Time Name of Medical Power of Mechanical Integrity Specialist [place] February 16, 2022 6:11pm Name of Medical Power of Mechanical Integrity Specialist Abigail Gonzalezw February 24, 2022 5:04pm Name of Medical Power of Mechanical Integrity Specialist Abigail Gonzalezw, March 01, 2022 3:23pm Name of Medical Power of Mechanical Integrity Specialist April 05, 2022 6:26pm Name of Medical Power of Mechanical Integrity Specialist Abigail Thomas, April 12, 2022 4:35pm Advance Directives Yes August 05 6:05am Living Will Yes April 12 4:35pm Power of Mechanical Integrity Specialist Yes April 12, 2022 4:35pm Advance Directive Response Recorded Date/ Time Name of Medical Power of Mechanical Integrity Specialist [place] February 16, 2022 7:11pm Name of Medical Power of Mechanical Integrity Specialist Abigail Thomas February 24, 2022 6:04pm Name of Medical Power of Mechanical Integrity Specialist Abigail Thomas, March 01, 2022 4:23pm Name of Medical Power of Mechanical Integrity Specialist April 05, 2022 7:26pm Name of Medical Power of Mechanical Integrity Specialist Abigail Thomas, April 12, 2022 5:35pm Advance Directives Yes August 05 7:05am Living Will Yes April 12 5:35pm Power of Mechanical Integrity Specialist Yes April 12, 2022 5:35pm Advance Directive Response Recorded Date/ Time Name of Medical Power of Mechanical Integrity Specialist April 05, 2022 7:26pm Name of Medical Power of Mechanical Integrity Specialist Abigail Thomas, April 12, 2022 5:35pm Advance Directives Yes August 05 7:05am Living Will Yes April 12 5:35pm Power of Mechanical Integrity Specialist Yes April 12, 2022 5:35pm Advance Directive Response Recorded Date/ Time Advance Directives Yes August 05 7:05am Living Will Yes April 12 5:35pm Power of Mechanical Integrity Specialist Yes April 12, 2022 5:35pm Advance Directive Response Recorded Date/ Time Name of Medical Power of Mechanical Integrity Specialist present October 28, 2022 7:01pm Advance Directives Yes August 05 7:05am Living Will Yes October 28 3 7:01pm Power of Mechanical Integrity Specialist Yes October 28 023 7:01pm Advance Directive Response Recorded Date/ Time Name of Medical Power of Mechanical Integrity Specialist present October 28, 2022 11:47pm Advance Directives Yes August 05 7:05am Living Will Yes October 28 3 11:47pm Power of Mechanical Integrity Specialist Yes October 28 023 11:47pm Advance Directive Response Recorded Date/ Time Name of Medical Power of Mechanical Integrity Specialist Abigail Thomas, November 04, 2022 12:56pm Advance Directives Yes August 05 7:05am Living Will Yes November 04 12:56pm Power of Mechanical Integrity Specialist Yes November 04, 023 12:56pm Name of Medical Power of Mechanical Integrity Specialist present October 28, 2022 11:47pm Advance Directive Response Recorded Date/ Time Name of Medical Power of Mechanical Integrity Specialist Abigail Thomas, November 04, 2022 12:56pm Name of Medical Power of Mechanical Integrity Specialist present October 28, 2022 11:47pm Advance Directives Yes August 05 7:05am Living Will Yes January 03 3:08pm Power of Mechanical Integrity Specialist Yes January 03, 2023 3:08pm Advance Directive Response Recorded Date/ Time Name of Medical Power of Mechanical Integrity Specialist Abigail Thomas, November 04, 2022 11:56am Name of Medical Power of Mechanical Integrity Specialist present October 28, 2022 10:47pm Name of Medical Power of Mechanical Integrity Specialist SPOUSE January 12, 2023 4:37pm Advance Directives Yes August 05 6:05am Living Will Yes January 12 4:37pm Power of Mechanical Integrity Specialist Yes January 12, 2023 4:37pm Advance Directive Response Recorded Date/ Time Name of Medical Power of Mechanical Integrity Specialist SPOUSE January 12, 2023 4:37pm Advance Directives Yes March 29, 2023 3:05pm Living Will Yes March 29 3:05pm Power of Mechanical Integrity Specialist Yes March 29, 2023 3:05pm Advance Directive Response Recorded Date/ Time Advance Directives Yes March 29, 2023 3:05pm Living Will Yes March 29 3:05pm Power of Mechanical Integrity Specialist Yes March 29, 2023 3:05pm Advance Directive Response Recorded Date/ Time Advance Directives Yes March 29, 2023 4:05pm Living Will Yes March 29 4:05pm Power of Mechanical Integrity Specialist Yes March 29, 2023 4:05pm Advance Directive Response Recorded Date/ Time Name of Medical Power of Mechanical Integrity Specialist Abigail July 09, 2023 3:38am Advance Directives Yes March 29, 2023 4:05pm Living Will Yes July 09, 2023 3:38am Power of Mechanical Integrity Specialist Yes July 08 3:38am Advance Directive Response Recorded Date/ Time Name of Medical Power of Mechanical Integrity Specialist Abigail Morrow July 09, 2023 5:58am Advance Directives Yes March 29, 2023 4:05pm Living Will Yes July 09, 2023 5:58am Power of Mechanical Integrity Specialist Yes July 08 5:58am Advance Directive Response Recorded Date/ Time Living Will Yes March 05 1:11am Do you have a Healthcare Power of Mechanical Integrity Specialist? Yes March 05, 2024 1:11am Name of Medical Power of Mechanical Integrity Specialist ABIGAIL Thomas March 05, 2024 1:11am Living Will No March 09 3:37am Do you have a Healthcare Power of Mechanical Integrity Specialist? No March 09, 2024 3:37am Advance Directives Yes March 29, 2023 4:05pm Advance Directive Response Recorded Date/ Time Living Will No March 09 3:37am Do you have a Healthcare Power of Mechanical Integrity Specialist? No March 09, 2024 3:37am Advance Directives Yes March 29, 2023 4:05pm Advance Directive Response Recorded Date/ Time Advance Directives Yes March 29, 2023 4:05pm Advance Directive Response Recorded Date/ Time Do you have a Healthcare Power of Mechanical Integrity Specialist? Yes August 23, 2024 1:50pm Name of Medical Power of Mechanical Integrity Specialist abigail thomas August 23, 2024 1:50pm Advance Directives Yes March 29, 2023 4:05pm Chief Complaint and Reason for Visit Chief Complaint [facility] STROKE F/U cva DIET ADVANCEMENT Amb Documentation Amb Documentation Sleep apnea PERIPHERAL VASCULAR DISEASE JOHN; BIPAP S 26/01 wF20 Medium*INVENTORY TAGGED 2 M FU 6 wk FU B12 Injection BP check with home BP machine Let ivett know. HIGH BP EVAL RENOVASCULAR DISEASE Amb Documentation palp GENERAL ILLNESS LOW HR/HTN 3 M FU HTN DYSPNEA DYSPNEA athersclerosis of renal artery CVA/DR TO FAX Reason for Visit Polyneuropathy Obstructive Sleep Apnea-Hypopnea Syndrome Obstructive Sleep Apnea-Hypopnea Syndrome Bradycardia Essential hypertension Peripheral vascular occlusive disease Fatigue History of CVA (cerebrovascular accident) Peripheral vascular occlusive disease Polyneuropathy Chief Complaint Amb Documentation Amb Documentation Sleep apnea PERIPHERAL VASCULAR DISEASE JOHN; BIPAP S 26/01 wF20 Medium*INVENTORY TAGGED 2 M FU 6 wk FU B12 Injection BP check with home BP machine Let ivett know. HIGH BP EVAL RENOVASCULAR DISEASE Amb Documentation palp GENERAL ILLNESS LOW HR/HTN 3 M FU HTN DYSPNEA DYSPNEA athersclerosis of renal artery CVA/DR TO FAX STRUCTURE OF ARTERY Reason for Visit Obstructive Sleep Ap kimmie-Hypopnea Syndrome Obstructive Sleep Apnea-Hypopnea Syndrome Bradycardia Essential hypertension Peripheral vascular occlusive disease Fatigue History of CVA (cerebrovascular accident) Peripheral vascular occlusive disease Polyneuropathy Chief Complaint 6 wk FU B12 Injection BP check with home BP machine Let ivett know. HIGH BP EVAL RENOVASCULAR DISEASE Amb Documentation palp GENERAL ILLNESS LOW HR/HTN 3 M FU HTN DYSPNEA DYSPNEA athersclerosis of renal artery STRUCTURE OF ARTERY 3 M FU 3 M FU 2 M FU check home cuff against ours L.Lorfranklin CVA/DR TO FAX R RENAL ANGIOGRAM W/ INTERVENTION Reason for Visit Obstructive Sleep Ap kimmie-Hypopnea Syndrome Bradycardia Essential hypertension Peripheral vascular occlusive disease Fatigue History of CVA (cerebrovascular accident) Peripheral vascular occlusive disease Polyneuropathy Fatigue Obstructive Sleep Apnea-Hypopnea Syndrome Physical debility Right renal artery stenosis Chronic back pain Essential hypertension History of CVA (cerebrovascular accident) Hyperlipidemia Peripheral vascular occlusive disease Polyneuropathy Type 2 diabetes mellitus Obstructive Sleep Apnea-Hypopnea Syndrome Bradycardia Essential hypertension Hyperlipidemia Right renal artery stenosis Chief Complaint 3 M FU HTN DYSPNEA DYSPNEA athersclerosis of renal artery STRUCTURE OF ARTERY 3 M FU 3 M FU 2 M FU check home cuff against ours L.Fernanda CVA/DR TO FAX R RENAL ANGIOGRAM W/ INTERVENTION 3 M FU EORDER URINE Reason for Visit Fatigue History of CVA (cerebrovascular accident) Peripheral vascular occlusive disease Polyneuropathy Fatigue Obstructive Sleep Apnea-Hypopnea Syndrome Physical debility Right renal artery stenosis Chronic back pain Essential hypertension History of CVA (cerebrovascular accident) Hyperlipidemia Peripheral vascular occlusive disease Polyneuropathy Type 2 diabetes mellitus Obstructive Sleep Apnea-Hypopnea Syndrome Bradycardia Essential hypertension Hyperlipidemia Right renal artery stenosis Chief Complaint HTN DYSPNEA DYSPNEA athersclerosis of renal artery STRUCTURE OF ARTERY 3 M FU 3 M FU 2 M FU check home cuff against ours L.Fernanda CVA/ TO FAX R RENAL ANGIOGRAM W/ INTERVENTION 3 M FU EORDER URINE 2 M FU Reason for Visit Fatigue Obstructive Sleep Apnea-Hypopnea Syndrome Physical debility Right renal artery stenosis Chronic back pain Essential hypertension History of CVA (cerebrovascular accident) Hyperlipidemia Peripheral vascular occlusive disease Polyneuropathy Type 2 diabetes mellitus Obstructive Sleep Apnea-Hypopnea Syndrome Bradycardia Essential hypertension Hyperlipidemia Right renal artery stenosis History of CVA (cerebrovascular accident) Peripheral vascular occlusive disease Polyneuropathy Bradycardia Dizziness Essential hypertension Hyperlipidemia Chief Complaint STRUCTURE OF ARTERY 3 M FU 3 M FU 2 M FU check home cuff against ours L.Fernanda CVA/DR TO FAX R RENAL ANGIOGRAM W/ INTERVENTION 3 M FU EORDER URINE 2 M FU EORDER BRADYCARDIA Reason for Visit Fatigue Obstructive Sleep Apnea-Hypopnea Syndrome Physical debility Right renal artery stenosis Chronic back pain Essential hypertension History of CVA (cerebrovascular accident) Hyperlipidemia Peripheral vascular occlusive disease Polyneuropathy Type 2 diabetes mellitus Obstructive Sleep Apnea-Hypopnea Syndrome Bradycardia Essential hypertension Hyperlipidemia Right renal artery stenosis History of CVA (cerebrovascular accident) Peripheral vascular occlusive disease Polyneuropathy Bradycardia Dizziness Essential hypertension Hyperlipidemia Chief Complaint STRUCTURE OF ARTERY 3 M FU 3 M FU 2 M FU check home cuff against ours LJose Alfredo CVA/DR TO FAX R RENAL ANGIOGRAM W/ INTERVENTION 3 M FU EORDER URINE 2 M FU EORDER BRADYCARDIA RENAL ARTERY STENOSIS/dizziness Reason for Visit Fatigue Obstructive Sleep Apnea-Hypopnea Syndrome Physical debility Right renal artery stenosis Chronic back pain Essential hypertension History of CVA (cerebrovascular accident) Hyperlipidemia Peripheral vascular occlusive disease Polyneuropathy Type 2 diabetes mellitus Obstructive Sleep Apnea-Hypopnea Syndrome Bradycardia Essential hypertension Hyperlipidemia Right renal artery stenosis History of CVA (cerebrovascular accident) Peripheral vascular occlusive disease Polyneuropathy Bradycardia Dizziness Essential hypertension Hyperlipidemia Chief Complaint 3 M FU 3 M FU 2 M FU check home cuff against ours LJose Alfredo CVA/DR TO FAX R RENAL ANGIOGRAM W/ INTERVENTION 3 M FU EORDER URINE 2 M FU EORDER BRADYCARDIA RENAL ARTERY STENOSIS/dizziness Reason for Visit Fatigue Obstructive Sleep Apnea-Hypopnea Syndrome Physical debility Right renal artery stenosis Chronic back pain Essential hypertension History of CVA (cerebrovascular accident) Hyperlipidemia Peripheral vascular occlusive disease Polyneuropathy Type 2 diabetes mellitus Obstructive Sleep Apnea-Hypopnea Syndrome Bradycardia Essential hypertension Hyperlipidemia Right renal artery stenosis History of CVA (cerebrovascular accident) Peripheral vascular occlusive disease Polyneuropathy Bradycardia Dizziness Essential hypertension Hyperlipidemia Chief Complaint CVA/DR TO FAX R RENAL ANGIOGRAM W/ INTERVENTION 3 M FU EORDER URINE 2 M FU EORDER BRADYCARDIA RENAL ARTERY STENOSIS/dizziness RENAL ARTERY STENOSIS/dizziness F/U of Carotid, Renal [facility] EORDERS Reason for Visit Right renal artery s tenosis History of CVA (cerebrovascular accident) Peripheral vascular occlusive disease Polyneuropathy Bradycardia Dizziness Essential hypertension Hyperlipidemia Bradycardia Essential hypertension Hyperlipidemia Chief Complaint EORDER BRADYCARDIA RENAL ARTERY STENOSIS/dizziness RENAL ARTERY STENOSIS/dizziness F/U of Carotid, Renal [facility] EORDERS 6 M FU 4 M FU Reason for Visit Bradycardia Essential hypertension Hyperlipidemia Elevated serum creatinine Obstructive Sleep Apnea-Hypopnea Syndrome Physical debility Right renal artery stenosis Essential hypertension History of CVA (cerebrovascular accident) Hyperlipidemia Peripheral vascular occlusive disease Polyneuropathy Type 2 diabetes mellitus Iron deficiency Anemia Fatigue History of CVA (cerebrovascular accident) Polyneuropathy Chief Complaint RENAL ARTERY STENOSI S/dizziness F/U of Carotid, [facility] 6 M FU 4 M FU freq urination HYYPOTENSION HYYPOTENSION HYYPOTENSION HYYPOTENSION HYYPOTENSION Reason for Visit Bradycardia Essential hypertension Hyperlipidemia Elevated serum creatinine Obstructive Sleep Apnea-Hypopnea Syndrome Physical debility Right renal artery stenosis Essential hypertension History of CVA (cerebrovascular accident) Hyperlipidemia Peripheral vascular occlusive disease Polyneuropathy Type 2 diabetes mellitus Iron deficiency Anemia Fatigue History of CVA (cerebrovascular accident) Polyneuropathy Physical debility Urinary frequency Essential hypertension History of CVA (cerebrovascular accident) Type 2 diabetes mellitus Accidental overdose of clonidine Acute hypotension NABILA (acute kidney injury) Aspiration pneumonia Bradycardia Near syncope Ventricular tachycardia seen on handtools repairer Essential hypertension Hyperlipidemia Chief Complaint F/U of Carotid, Juany l [facility] FU 4 M FU freq urination HYYPOTENSION HYYPOTENSION HYYPOTENSION HYYPOTENSION HYYPOTENSION HYYPOTENSION HYYPOTENSION HYYPOTENSION HYYPOTENSION Reason for Visit Bradycardia Essential hypertension Hyperlipidemia Elevated serum creatinine Obstructive Sleep Apnea-Hypopnea Syndrome Physical debility Right renal artery stenosis Essential hypertension History of CVA (cerebrovascular accident) Hyperlipidemia Peripheral vascular occlusive disease Polyneuropathy Type 2 diabetes mellitus Iron deficiency Anemia Fatigue History of CVA (cerebrovascular accident) Polyneuropathy Physical debility Urinary frequency Essential hypertension History of CVA (cerebrovascular accident) Type 2 diabetes mellitus Accidental overdose of clonidine Acute hypotension Acute respiratory failure with hypoxia NABILA (acute kidney injury) Aspiration pneumonia Bradycardia Near syncope Ventricular tachycardia seen on handtools repairer Essential hypertension Hyperlipidemia Chief Complaint EORDERS 6 M FU 4 M FU freq urination HYYPOTENSION HYYPOTENSION HYYPOTENSION HYYPOTENSION HYYPOTENSION HYYPOTENSION HYYPOTENSION HYYPOTENSION HYYPOTENSION FALL, NOT ABLE TO STAND FALL, NOT ABLE TO STAND FALL, NOT ABLE TO STAND FALL, NOT ABLE TO STAND FALL, NOT ABLE TO STAND FALLS Reason for Visit Elevated serum creat inine Obstructive Sleep Apnea-Hypopnea Syndrome Physical debility Right renal artery stenosis History of CVA (cerebrovascular accident) Peripheral vascular occlusive disease Polyneuropathy Type 2 diabetes mellitus Iron deficiency Anemia Fatigue History of CVA (cerebrovascular accident) Polyneuropathy Physical debility Urinary frequency History of CVA (cerebrovascular accident) Type 2 diabetes mellitus Aspiration pneumonia Accidental overdose of clonidine Acute hypotension Acute respiratory failure with hypoxia NABILA (acute kidney injury) Bradycardia Near syncope NABILA (acute kidney injury) Aspiration into airway Aspiration pneumonia Contusion of rib on left side Dehydration Fall Generalized weakness Head injury History of aspiration pneumonia History of diabetes mellitus History of stroke Physical debility Unable to ambulate Acute on chronic renal insufficiency Chronic anemia Acute kidney injury Aspiration pneumonia BPH (benign prostatic hyperplasia) Cellulitis of left toe Coronary artery disease Debility Dehydration Depression Diabetes mellitus Fall Glaucoma Hyperlipidemia Left hemiparesis Pain in left toe(s) Restless leg syndrome Right-sided cerebrovascular accident (CVA) Tinea unguium Chronic anemia Hypertension Chief Complaint 6 M FU 4 M FU freq urination HYYPOTENSION HYYPOTENSION HYYPOTENSION HYYPOTENSION HYYPOTENSION HYYPOTENSION HYYPOTENSION HYYPOTENSION HYYPOTENSION FALL, NOT ABLE TO STAND FALL, NOT ABLE TO STAND FALL, NOT ABLE TO STAND FALL, NOT ABLE TO STAND FALL, NOT ABLE TO STAND FALLS [facility] ER FU CVA,DEBILITY/RX HERE POST PNEUMONIA/CONTINUED DIFFICULTY BREATHING XRAY CHF, LEFT PLEURAL EFFUSION, CHRONIC KIDNEY DISEASE Reason for Visit Elevated serum creat inine Obstructive Sleep Apnea-Hypopnea Syndrome Physical debility Right renal artery stenosis History of CVA (cerebrovascular accident) Peripheral vascular occlusive disease Polyneuropathy Type 2 diabetes mellitus Iron deficiency Anemia Fatigue History of CVA (cerebrovascular accident) Polyneuropathy Physical debility Urinary frequency History of CVA (cerebrovascular accident) Type 2 diabetes mellitus Aspiration pneumonia Accidental overdose of clonidine Acute hypotension Acute respiratory failure with hypoxia NABILA (acute kidney injury) Bradycardia Near syncope NABILA (acute kidney injury) Aspiration into airway Aspiration pneumonia Contusion of rib on left side Dehydration Fall Generalized weakness Head injury History of aspiration pneumonia History of diabetes mellitus History of stroke Physical debility Unable to ambulate Acute on chronic renal insufficiency Chronic anemia BPH (benign prostatic hyperplasia) Coronary artery disease Debility Depression Diabetes mellitus Glaucoma Hyperlipidemia Restless leg syndrome Chronic anemia Hypertension Acute kidney injury Aspiration pneumonia Cellulitis of left toe Dehydration Fall Left hemiparesis Pain in left toe(s) Right-sided cerebrovascular accident (CVA) Tinea unguium Coronary artery disease Debility Depression Elevated serum creatinine Generalized weakness History of aspiration pneumonia History of diabetes mellitus History of stroke Hyperlipidemia Obstructive Sleep Apnea-Hypopnea Syndrome Hypertension Type 2 diabetes mellitus Acute kidney injury Dehydration Fall Right-sided cerebrovascular accident (CVA) Pneumonia SOB (shortness of breath) Congestive heart failure Coronary artery disease Lymphedema of both lower extremities Obstructive Sleep Apnea-Hypopnea Syndrome Pleural effusion on left Chronic anemia [id number] Type 2 diabetes mellitus Chief Complaint 6 M FU 4 M FU freq urination HYYPOTENSION HYYPOTENSION HYYPOTENSION HYYPOTENSION HYYPOTENSION HYYPOTENSION HYYPOTENSION HYYPOTENSION HYYPOTENSION FALL, NOT ABLE TO STAND FALL, NOT ABLE TO STAND FALL, NOT ABLE TO STAND FALL, NOT ABLE TO STAND FALL, NOT ABLE TO STAND FALLS [facility] ER FU CVA,DEBILITY/RX HERE POST PNEUMONIA/CONTINUED DIFFICULTY BREATHING XRAY CHF, LEFT PLEURAL EFFUSION, CHRONIC KIDNEY DISEASE CHF, LEFT PLEURAL EFFUSION, CHRONIC KIDNEY DISEASE CHF, LEFT PLEURAL EFFUSION, CHRONIC KIDNEY DISEASE CHF, LEFT PLEURAL EFFUSION, CHRONIC KIDNEY DISEASE CHF, LEFT PLEURAL EFFUSION, CHRONIC KIDNEY DISEASE CHF, LEFT PLEURAL EFFUSION, CHRONIC KIDNEY DISEASE CHF, LEFT PLEURAL EFFUSION, CHRONIC KIDNEY DISEASE CHF, LEFT PLEURAL EFFUSION, CHRONIC KIDNEY DISEASE CHF, LEFT PLEURAL EFFUSION, CHRONIC KIDNEY DISEASE CHF, LEFT PLEURAL EFFUSION, CHRONIC KIDNEY DISEASE CHF, LEFT PLEURAL EFFUSION, CHRONIC KIDNEY DISEASE CHF, LEFT PLEURAL EFFUSION, CHRONIC KIDNEY DISEASE Reason for Visit Elevated serum creat inine Obstructive Sleep Apnea-Hypopnea Syndrome Physical debility Right renal artery stenosis History of CVA (cerebrovascular accident) Peripheral vascular occlusive disease Polyneuropathy Type 2 diabetes mellitus Iron deficiency Anemia Fatigue History of CVA (cerebrovascular accident) Polyneuropathy Physical debility Urinary frequency History of CVA (cerebrovascular accident) Type 2 diabetes mellitus Aspiration pneumonia Accidental overdose of clonidine Acute hypotension Acute respiratory failure with hypoxia NABILA (acute kidney injury) Bradycardia Near syncope NABILA (acute kidney injury) Aspiration into airway Aspiration pneumonia Contusion of rib on left side Dehydration Fall Generalized weakness Head injury History of aspiration pneumonia History of diabetes mellitus History of stroke Physical debility Unable to ambulate Acute on chronic renal insufficiency Chronic anemia BPH (benign prostatic hyperplasia) Coronary artery disease Debility Depression Diabetes mellitus Glaucoma Hyperlipidemia Restless leg syndrome Chronic anemia Hypertension Acute kidney injury Aspiration pneumonia Cellulitis of left toe Dehydration Fall Left hemiparesis Pain in left toe(s) Right-sided cerebrovascular accident (CVA) Tinea unguium Coronary artery disease Debility Depression Elevated serum creatinine Generalized weakness History of aspiration pneumonia History of diabetes mellitus History of stroke Hyperlipidemia Obstructive Sleep Apnea-Hypopnea Syndrome Hypertension Type 2 diabetes mellitus Acute kidney injury Dehydration Fall Right-sided cerebrovascular accident (CVA) Pneumonia SOB (shortness of breath) Congestive heart failure Coronary artery disease Lymphedema of both lower extremities Obstructive Sleep Apnea-Hypopnea Syndrome Pleural effusion on left Chronic anemia [id number] Hypertension Type 2 diabetes mellitus Chief Complaint 6 M FU 4 M FU freq urination HYYPOTENSION HYYPOTENSION HYYPOTENSION HYYPOTENSION HYYPOTENSION HYYPOTENSION HYYPOTENSION HYYPOTENSION HYYPOTENSION FALL, NOT ABLE TO STAND FALL, NOT ABLE TO STAND FALL, NOT ABLE TO STAND FALL, NOT ABLE TO STAND FALL, NOT ABLE TO STAND FALLS [facility] ER FU CVA,DEBILITY/RX HERE POST PNEUMONIA/CONTINUED DIFFICULTY BREATHING XRAY CHF, LEFT PLEURAL EFFUSION, CHRONIC KIDNEY DISEASE CHF, LEFT PLEURAL EFFUSION, CHRONIC KIDNEY DISEASE CHF, LEFT PLEURAL EFFUSION, CHRONIC KIDNEY DISEASE CHF, LEFT PLEURAL EFFUSION, CHRONIC KIDNEY DISEASE CHF, LEFT PLEURAL EFFUSION, CHRONIC KIDNEY DISEASE CHF, LEFT PLEURAL EFFUSION, CHRONIC KIDNEY DISEASE CHF, LEFT PLEURAL EFFUSION, CHRONIC KIDNEY DISEASE CHF, LEFT PLEURAL EFFUSION, CHRONIC KIDNEY DISEASE CHF, LEFT PLEURAL EFFUSION, CHRONIC KIDNEY DISEASE CHF, LEFT PLEURAL EFFUSION, CHRONIC KIDNEY DISEASE CHF, LEFT PLEURAL EFFUSION, CHRONIC KIDNEY DISEASE CHF, LEFT PLEURAL EFFUSION, CHRONIC KIDNEY DISEASE CHF,L PLURAL INFUSION,CHRONIC KIDNEY DISEASE Reason for Visit Elevated serum creat inine Physical debility Right renal artery stenosis History of CVA (cerebrovascular accident) Peripheral vascular occlusive disease Polyneuropathy Iron deficiency Anemia Fatigue History of CVA (cerebrovascular accident) Polyneuropathy Physical debility Urinary frequency History of CVA (cerebrovascular accident) Aspiration pneumonia Accidental overdose of clonidine Acute hypotension Acute respiratory failure with hypoxia NABILA (acute kidney injury) Bradycardia Near syncope NABILA (acute kidney injury) Aspiration into airway Aspiration pneumonia Contusion of rib on left side Dehydration Fall Generalized weakness Head injury History of aspiration pneumonia History of diabetes mellitus History of stroke Physical debility Unable to ambulate Acute on chronic renal insufficiency Chronic anemia BPH (benign prostatic hyperplasia) Debility Depression Diabetes mellitus Glaucoma Hyperlipidemia Restless leg syndrome Acute kidney injury Aspiration pneumonia Cellulitis of left toe Dehydration Fall Left hemiparesis Pain in left toe(s) Right-sided cerebrovascular accident (CVA) Tinea unguium Debility Depression Elevated serum creatinine Generalized weakness History of aspiration pneumonia History of diabetes mellitus History of stroke Hyperlipidemia Acute kidney injury Dehydration Fall Right-sided cerebrovascular accident (CVA) Pneumonia SOB (shortness of breath) [id number] Lymphedema of both lower extremities Pleural effusion on left Acute kidney injury Acute respiratory failure with hypoxia BPH (benign prostatic hyperplasia) Chronic kidney disease, stage 3b Debility Depression Diabetes mellitus Glaucoma Hyperlipidemia Iron deficiency anemia Pleural effusion, left Restless leg syndrome Stroke Acute on chronic diastolic congestive heart failure Hypertension Chief Complaint freq urination HYYPOTENSION HYYPOTENSION HYYPOTENSION HYYPOTENSION HYYPOTENSION HYYPOTENSION HYYPOTENSION HYYPOTENSION HYYPOTENSION FALL, NOT ABLE TO STAND FALL, NOT ABLE TO STAND FALL, NOT ABLE TO STAND FALL, NOT ABLE TO STAND FALL, NOT ABLE TO STAND FALLS [facility] ER FU CVA,DEBILITY/RX HERE POST PNEUMONIA/CONTINUED DIFFICULTY BREATHING XRAY CHF, LEFT PLEURAL EFFUSION, CHRONIC KIDNEY DISEASE CHF, LEFT PLEURAL EFFUSION, CHRONIC KIDNEY DISEASE CHF, LEFT PLEURAL EFFUSION, CHRONIC KIDNEY DISEASE CHF, LEFT PLEURAL EFFUSION, CHRONIC KIDNEY DISEASE CHF, LEFT PLEURAL EFFUSION, CHRONIC KIDNEY DISEASE CHF, LEFT PLEURAL EFFUSION, CHRONIC KIDNEY DISEASE CHF, LEFT PLEURAL EFFUSION, CHRONIC KIDNEY DISEASE CHF, LEFT PLEURAL EFFUSION, CHRONIC KIDNEY DISEASE CHF, LEFT PLEURAL EFFUSION, CHRONIC KIDNEY DISEASE CHF, LEFT PLEURAL EFFUSION, CHRONIC KIDNEY DISEASE CHF, LEFT PLEURAL EFFUSION, CHRONIC KIDNEY DISEASE CHF, LEFT PLEURAL EFFUSION, CHRONIC KIDNEY DISEASE CHF,L PLURAL INFUSION,CHRONIC KIDNEY DISEASE [facility] ER FU EORDER FROM DR FIGUEROA AND [facility] Reason for Visit Physical debility Urinary frequency History of CVA (cerebrovascular accident) Aspiration pneumonia Accidental overdose of clonidine Acute hypotension Acute respiratory failure with hypoxia NABILA (acute kidney injury) Bradycardia Near syncope NABILA (acute kidney injury) Aspiration into airway Aspiration pneumonia Contusion of rib on left side Dehydration Fall Generalized weakness Head injury History of aspiration pneumonia History of diabetes mellitus History of stroke Physical debility Unable to ambulate Acute on chronic renal insufficiency Chronic anemia BPH (benign prostatic hyperplasia) Debility Depression Diabetes mellitus Glaucoma Hyperlipidemia Restless leg syndrome Acute kidney injury Aspiration pneumonia Cellulitis of left toe Dehydration Fall Left hemiparesis Pain in left toe(s) Right-sided cerebrovascular accident (CVA) Tinea unguium Debility Depression Elevated serum creatinine Generalized weakness History of aspiration pneumonia History of diabetes mellitus History of stroke Hyperlipidemia Acute kidney injury Dehydration Fall Right-sided cerebrovascular accident (CVA) Pneumonia SOB (shortness of breath) [id number] Lymphedema of both lower extremities Pleural effusion on left BPH (benign prostatic hyperplasia) Chronic kidney disease, stage 3b Debility Depression Diabetes mellitus Glaucoma Hyperlipidemia Iron deficiency anemia Restless leg syndrome Stroke Hypertension Acute kidney injury Acute on chronic diastolic congestive heart failure Acute respiratory failure with hypoxia Pleural effusion, left BPH (benign prostatic hyperplasia) Chronic kidney disease, stage 3b Depression Diabetes mellitus Hyperlipidemia Iron deficiency anemia Physical debility Pneumonia Recurrent left pleural effusion History of CVA (cerebrovascular accident) Hypertension Peripheral vascular occlusive disease Chief Complaint HYYPOTENSION HYYPOTENSION HYYPOTENSION HYYPOTENSION HYYPOTENSION HYYPOTENSION HYYPOTENSION FALL, NOT ABLE TO STAND FALL, NOT ABLE TO STAND FALL, NOT ABLE TO STAND FALL, NOT ABLE TO STAND FALL, NOT ABLE TO STAND FALLS [facility] ER FU CVA,DEBILITY/RX HERE POST PNEUMONIA/CONTINUED DIFFICULTY BREATHING XRAY CHF, LEFT PLEURAL EFFUSION, CHRONIC KIDNEY DISEASE CHF, LEFT PLEURAL EFFUSION, CHRONIC KIDNEY DISEASE CHF, LEFT PLEURAL EFFUSION, CHRONIC KIDNEY DISEASE CHF, LEFT PLEURAL EFFUSION, CHRONIC KIDNEY DISEASE CHF, LEFT PLEURAL EFFUSION, CHRONIC KIDNEY DISEASE CHF, LEFT PLEURAL EFFUSION, CHRONIC KIDNEY DISEASE CHF, LEFT PLEURAL EFFUSION, CHRONIC KIDNEY DISEASE CHF, LEFT PLEURAL EFFUSION, CHRONIC KIDNEY DISEASE CHF, LEFT PLEURAL EFFUSION, CHRONIC KIDNEY DISEASE CHF, LEFT PLEURAL EFFUSION, CHRONIC KIDNEY DISEASE CHF, LEFT PLEURAL EFFUSION, CHRONIC KIDNEY DISEASE CHF, LEFT PLEURAL EFFUSION, CHRONIC KIDNEY DISEASE CHF,L PLURAL INFUSION,CHRONIC KIDNEY DISEASE [facility] ER FU EORDER FROM DR FIGUEROA AND [facility] EORDER Reason for Visit Aspiration pneumonia Accidental overdose of clonidine Acute hypotension Acute respiratory failure with hypoxia NABILA (acute kidney injury) Bradycardia Near syncope NABILA (acute kidney injury) Aspiration into airway Aspiration pneumonia Contusion of rib on left side Dehydration Fall Generalized weakness Head injury History of aspiration pneumonia History of diabetes mellitus History of stroke Physical debility Unable to ambulate Acute on chronic renal insufficiency Chronic anemia BPH (benign prostatic hyperplasia) Debility Depression Diabetes mellitus Glaucoma Hyperlipidemia Restless leg syndrome Acute kidney injury Aspiration pneumonia Cellulitis of left toe Dehydration Fall Left hemiparesis Pain in left toe(s) Right-sided cerebrovascular accident (CVA) Tinea unguium Debility Depression Elevated serum creatinine Generalized weakness History of aspiration pneumonia History of diabetes mellitus History of stroke Hyperlipidemia Acute kidney injury Dehydration Fall Right-sided cerebrovascular accident (CVA) Pneumonia SOB (shortness of breath) [id number] Lymphedema of both lower extremities Pleural effusion on left BPH (benign prostatic hyperplasia) Chronic kidney disease, stage 3b Debility Depression Diabetes mellitus Glaucoma Hyperlipidemia Iron deficiency anemia Restless leg syndrome Stroke Hypertension Acute kidney injury Acute on chronic diastolic congestive heart failure Acute respiratory failure with hypoxia Pleural effusion, left BPH (benign prostatic hyperplasia) Chronic kidney disease, stage 3b Depression Diabetes mellitus Hyperlipidemia Iron deficiency anemia Physical debility Pneumonia Recurrent left pleural effusion History of CVA (cerebrovascular accident) Hypertension Peripheral vascular occlusive disease Chief Complaint POST PNEUMONIA/OSCAR NUED DIFFICULTY BREATHING XRAY CHF, LEFT PLEURAL EFFUSION, CHRONIC KIDNEY DISEASE CHF, LEFT PLEURAL EFFUSION, CHRONIC KIDNEY DISEASE CHF, LEFT PLEURAL EFFUSION, CHRONIC KIDNEY DISEASE CHF, LEFT PLEURAL EFFUSION, CHRONIC KIDNEY DISEASE CHF, LEFT PLEURAL EFFUSION, CHRONIC KIDNEY DISEASE CHF, LEFT PLEURAL EFFUSION, CHRONIC KIDNEY DISEASE CHF, LEFT PLEURAL EFFUSION, CHRONIC KIDNEY DISEASE CHF, LEFT PLEURAL EFFUSION, CHRONIC KIDNEY DISEASE CHF, LEFT PLEURAL EFFUSION, CHRONIC KIDNEY DISEASE CHF, LEFT PLEURAL EFFUSION, CHRONIC KIDNEY DISEASE CHF, LEFT PLEURAL EFFUSION, CHRONIC KIDNEY DISEASE CHF, LEFT PLEURAL EFFUSION, CHRONIC KIDNEY DISEASE CHF,L PLURAL INFUSION,CHRONIC KIDNEY DISEASE [facility] ER FU [facility] Reason for Visit Pneumonia SOB (shortness of breath) [id number] Lymphedema of both lower extremities Pleural effusion on left BPH (benign prostatic hyperplasia) Chronic kidney disease, stage 3b Debility Depression Diabetes mellitus Glaucoma Hyperlipidemia Iron deficiency anemia Restless leg syndrome Stroke Hypertension Acute kidney injury Acute on chronic diastolic congestive heart failure Acute respiratory failure with hypoxia Pleural effusion, left BPH (benign prostatic hyperplasia) Chronic kidney disease, stage 3b Depression Diabetes mellitus Hyperlipidemia Iron deficiency anemia Physical debility Pneumonia Recurrent left pleural effusion History of CVA (cerebrovascular accident) Hypertension Peripheral vascular occlusive disease Fatigue History of CVA (cerebrovascular accident) Polyneuropathy Chief Complaint EORDER FROM DR DIVYA FARNSWORTH AND [facility] EORDER 6 M FU 1 Y FU 1 Y FU 6 M FU URINARY FREQUENCY, PLEASE INCLUDE PVR, HX CVA Reason for Visit Fatigue History of CVA (cerebrovascular accident) Polyneuropathy Bradycardia BPH (benign prostatic hyperplasia) Chronic kidney disease, stage 3b Debility Depression Diabetes mellitus Fall Generalized weakness Hyperlipidemia Iron deficiency anemia Right renal artery stenosis Stroke Hypertension Chief Complaint 6 M FU 1 Y FU 1 Y FU 6 M FU URINARY FREQUENCY, PLEASE INCLUDE PVR, HX CVA Sore Lt Leg RENAL ARTERY STENOSIS GENERALIZED WEAKNESS Reason for Visit Fatigue History of CVA (cerebrovascular accident) Polyneuropathy Bradycardia BPH (benign prostatic hyperplasia) Chronic kidney disease, stage 3b Debility Depression Diabetes mellitus Fall Generalized weakness Hyperlipidemia Iron deficiency anemia Right renal artery stenosis Stroke Hypertension Chronic venous stasis Diabetes mellitus Stroke Chronic stasis dermatitis History of CVA (cerebrovascular accident) Hypertension Peripheral vascular occlusive disease Fever Urinary retention Weakness Chief Complaint 6 M FU 1 Y FU 1 Y FU 6 M FU URINARY FREQUENCY, PLEASE INCLUDE PVR, HX CVA Sore Lt Leg RENAL ARTERY STENOSIS GENERALIZED WEAKNESS GENERALIZED WEAKNESS GENERALIZED WEAKNESS GENERALIZED WEAKNESS GENERALIZED WEAKNESS Reason for Visit Fatigue History of CVA (cerebrovascular accident) Polyneuropathy Bradycardia BPH (benign prostatic hyperplasia) Chronic kidney disease, stage 3b Debility Depression Diabetes mellitus Fall Generalized weakness Hyperlipidemia Iron deficiency anemia Right renal artery stenosis Stroke Hypertension Chronic venous stasis Diabetes mellitus Stroke Chronic stasis dermatitis History of CVA (cerebrovascular accident) Hypertension Peripheral vascular occlusive disease Fever Urinary retention Weakness Chief Complaint 6 M FU 1 Y FU 1 Y FU 6 M FU URINARY FREQUENCY, PLEASE INCLUDE PVR, HX CVA Sore Lt Leg RENAL ARTERY STENOSIS GENERALIZED WEAKNESS GENERALIZED WEAKNESS GENERALIZED WEAKNESS GENERALIZED WEAKNESS GENERALIZED WEAKNESS GENERALIZED WEAKNESS GENERALIZED WEAKNESS GENERALIZED WEAKNESS Reason for Visit Fatigue History of CVA (cerebrovascular accident) Polyneuropathy Bradycardia BPH (benign prostatic hyperplasia) Chronic kidney disease, stage 3b Debility Depression Diabetes mellitus Fall Generalized weakness Hyperlipidemia Iron deficiency anemia Right renal artery stenosis Stroke Hypertension Chronic venous stasis Diabetes mellitus Stroke Chronic stasis dermatitis History of CVA (cerebrovascular accident) Hypertension Peripheral vascular occlusive disease Fever Urinary retention Weakness Chief Complaint 6 M FU 1 Y FU 1 Y FU 6 M FU URINARY FREQUENCY, PLEASE INCLUDE PVR, HX CVA Sore Lt Leg RENAL ARTERY STENOSIS GENERALIZED WEAKNESS GENERALIZED WEAKNESS GENERALIZED WEAKNESS GENERALIZED WEAKNESS GENERALIZED WEAKNESS GENERALIZED WEAKNESS GENERALIZED WEAKNESS GENERALIZED WEAKNESS GENRALIZAED WEAKNESS Reason for Visit Fatigue History of CVA (cerebrovascular accident) Polyneuropathy Bradycardia BPH (benign prostatic hyperplasia) Chronic kidney disease, stage 3b Debility Depression Diabetes mellitus Fall Generalized weakness Hyperlipidemia Iron deficiency anemia Right renal artery stenosis Stroke Hypertension Chronic venous stasis Diabetes mellitus Stroke Chronic stasis dermatitis History of CVA (cerebrovascular accident) Hypertension Peripheral vascular occlusive disease NABILA (acute kidney injury) BPH (benign prostatic hyperplasia) Debility Depression Diabetes mellitus Glaucoma Heart failure with preserved ejection fraction Hyperlipidemia Iron deficiency anemia Left hemiplegia Neuropathic pain Obstructive sleep apnea Restless leg syndrome Stroke Hypertension Chief Complaint 1 Y FU 1 Y FU 6 M FU URINARY FREQUENCY, PLEASE INCLUDE PVR, HX CVA Sore Lt Leg RENAL ARTERY STENOSIS GENERALIZED WEAKNESS GENERALIZED WEAKNESS GENERALIZED WEAKNESS GENERALIZED WEAKNESS GENERALIZED WEAKNESS GENERALIZED WEAKNESS GENERALIZED WEAKNESS GENERALIZED WEAKNESS GENRALIZAED WEAKNESS 4 M FU STRICTURE OF ARTERY, HTN [facility] Discharge 2 WK FU Reason for Visit Bradycardia BPH (benign prostatic hyperplasia) Chronic kidney disease, stage 3b Debility Depression Diabetes mellitus Fall Generalized weakness Hyperlipidemia Right renal artery stenosis Stroke Hypertension Iron deficiency anemia Chronic venous stasis Diabetes mellitus Stroke Chronic stasis dermatitis History of CVA (cerebrovascular accident) Hypertension Peripheral vascular occlusive disease NABLIA (acute kidney injury) BPH (benign prostatic hyperplasia) Debility Depression Diabetes mellitus Glaucoma Heart failure with preserved ejection fraction Hyperlipidemia Left hemiplegia Neuropathic pain Obstructive sleep apnea Restless leg syndrome Stroke Hypertension Iron deficiency anemia Fatigue History of CVA (cerebrovascular accident) Iron deficiency anemia Polyneuropathy BPH (benign prostatic hyperplasia) Chronic kidney disease, stage 3b Diabetes mellitus Hyperlipidemia Iron deficiency Stroke Urinary (tract) obstruction Urinary retention Hypertension Peripheral vascular occlusive disease Chief Complaint URINARY FREQUENCY, P LEASE INCLUDE PVR, HX CVA Sore Lt Leg RENAL ARTERY STENOSIS GENERALIZED WEAKNESS GENERALIZED WEAKNESS GENERALIZED WEAKNESS GENERALIZED WEAKNESS GENERALIZED WEAKNESS GENERALIZED WEAKNESS GENERALIZED WEAKNESS GENERALIZED WEAKNESS GENRALIZAED WEAKNESS 4 M FU STRICTURE OF ARTERY, HTN [facility] Discharge 2 WK FU HYPERTENSION VENOFER 200MG VENOFER 200MG Reason for Visit Chronic venous stasi s Diabetes mellitus Stroke Chronic stasis dermatitis History of CVA (cerebrovascular accident) Hypertension Peripheral vascular occlusive disease NABILA (acute kidney injury) BPH (benign prostatic hyperplasia) Debility Depression Diabetes mellitus Glaucoma Heart failure with preserved ejection fraction Hyperlipidemia Left hemiplegia Neuropathic pain Obstructive sleep apnea Restless leg syndrome Stroke Hypertension Iron deficiency anemia Fatigue History of CVA (cerebrovascular accident) Iron deficiency anemia Polyneuropathy BPH (benign prostatic hyperplasia) Chronic kidney disease, stage 3b Diabetes mellitus Hyperlipidemia Iron deficiency Stroke Urinary (tract) obstruction Urinary retention Hypertension Peripheral vascular occlusive disease Chief Complaint Sore Lt Leg RENAL ARTERY STENOSIS GENERALIZED WEAKNESS GENERALIZED WEAKNESS GENERALIZED WEAKNESS GENERALIZED WEAKNESS GENERALIZED WEAKNESS GENERALIZED WEAKNESS GENERALIZED WEAKNESS GENERALIZED WEAKNESS GENRALIZAED WEAKNESS 4 M FU STRICTURE OF ARTERY, HTN [facility] Discharge 2 WK FU HYPERTENSION VENOFER 200MG VENOFER 200MG Transurethral resection of Prostate VENOFER 200MG Reason for Visit Chronic venous stasi s Diabetes mellitus Stroke Chronic stasis dermatitis History of CVA (cerebrovascular accident) Hypertension Peripheral vascular occlusive disease NABILA (acute kidney injury) BPH (benign prostatic hyperplasia) Debility Depression Diabetes mellitus Glaucoma Heart failure with preserved ejection fraction Hyperlipidemia Left hemiplegia Neuropathic pain Obstructive sleep apnea Restless leg syndrome Stroke Hypertension Iron deficiency anemia Fatigue History of CVA (cerebrovascular accident) Iron deficiency anemia Polyneuropathy BPH (benign prostatic hyperplasia) Chronic kidney disease, stage 3b Diabetes mellitus Hyperlipidemia Iron deficiency Stroke Urinary (tract) obstruction Urinary retention Hypertension Peripheral vascular occlusive disease Chief Complaint RENAL ARTERY STENOSI S GENERALIZED WEAKNESS GENERALIZED WEAKNESS GENERALIZED WEAKNESS GENERALIZED WEAKNESS GENERALIZED WEAKNESS GENERALIZED WEAKNESS GENERALIZED WEAKNESS GENERALIZED WEAKNESS GENRALIZAED WEAKNESS 4 M FU STRICTURE OF ARTERY, HTN [facility] Discharge 2 WK FU HYPERTENSION VENOFER 200MG VENOFER 200MG Transurethral resection of Prostate VENOFER 200MG 6 M FU NO ORDERS Reason for Visit NABILA (acute kidney in jury) BPH (benign prostatic hyperplasia) Debility Depression Diabetes mellitus Glaucoma Heart failure with preserved ejection fraction Hyperlipidemia Left hemiplegia Neuropathic pain Obstructive sleep apnea Restless leg syndrome Stroke Hypertension Iron deficiency anemia Fatigue History of CVA (cerebrovascular accident) Iron deficiency anemia Polyneuropathy BPH (benign prostatic hyperplasia) Chronic kidney disease, stage 3b Diabetes mellitus Hyperlipidemia Iron deficiency Stroke Urinary (tract) obstruction Urinary retention Hypertension Peripheral vascular occlusive disease Bradycardia Essential hypertension Hyperlipidemia Chief Complaint HYPERTENSION VENOFER 200MG VENOFER 200MG Transurethral resection of Prostate VENOFER 200MG 6 M FU NO ORDERS 3 M FU 4 M FU EORDER Reason for Visit Bradycardia Essential hypertension Hyperlipidemia BPH (benign prostatic hyperplasia) Chronic kidney disease, stage 3b Chronic venous stasis Depression Diabetes mellitus Hyperlipidemia Iron deficiency Stroke Essential hypertension History of CVA (cerebrovascular accident) Hypertension Peripheral vascular occlusive disease Fatigue Iron deficiency anemia Chief Complaint 6 M FU NO ORDERS 3 M FU 4 M FU EORDER VENOFER 300MG Reason for Visit Bradycardia Essential hypertension Hyperlipidemia BPH (benign prostatic hyperplasia) Chronic kidney disease, stage 3b Chronic venous stasis Depression Diabetes mellitus Hyperlipidemia Iron deficiency Stroke Essential hypertension History of CVA (cerebrovascular accident) Hypertension Peripheral vascular occlusive disease Fatigue Iron deficiency anemia Chief Complaint NO ORDERS 3 M FU 4 M FU EORDER VENOFER 300MG VENOFER 300MG Reason for Visit BPH (benign prostati c hyperplasia) Chronic kidney disease, stage 3b Chronic venous stasis Depression Diabetes mellitus Hyperlipidemia Iron deficiency Stroke Essential hypertension History of CVA (cerebrovascular accident) Hypertension Peripheral vascular occlusive disease Fatigue Iron deficiency anemia Chief Complaint 3 M FU 4 M FU EORDER VENOFER 300MG VENOFER 300MG VENOFER 300MG Reason for Visit BPH (benign prostati c hyperplasia) Chronic kidney disease, stage 3b Chronic venous stasis Depression Diabetes mellitus Hyperlipidemia Iron deficiency Stroke Essential hypertension History of CVA (cerebrovascular accident) Hypertension Peripheral vascular occlusive disease Fatigue Iron deficiency anemia Chief Complaint 4 M FU EORDER VENOFER 300MG VENOFER 300MG VENOFER 300MG CCN reported HR 139, irreg L.Lorson DEBILITY, HYPOXIA WITH MILD CHF EXACERBATION Reason for Visit Fatigue Iron deficiency anemia Anemia Bradycardia CHF (congestive heart failure) Hypoxemia Weakness Chief Complaint 4 M FU EORDER VENOFER 300MG VENOFER 300MG VENOFER 300MG CCN reported HR 139, irreg L.Lorson DEBILITY, HYPOXIA WITH MILD CHF EXACERBATION DEBILITY, HYPOXIA WITH MILD CHF EXACERBATION DEBILITY, HYPOXIA WITH MILD CHF EXACERBATION DEBILITY, HYPOXIA WITH MILD CHF EXACERBATION DEBILITY, HYPOXIA WITH MILD CHF EXACERBATION DEBILITY, HYPOXIA WITH MILD CHF EXACERBATION DEBILITY, HYPOXIA WITH MILD CHF EXACERBATION DEBILITY, HYPOXIA WITH MILD CHF EXACERBATION Reason for Visit Fatigue Iron deficiency anemia Anemia Bradycardia CHF (congestive heart failure) Hypoxemia Weakness Chief Complaint 4 M FU EORDER VENOFER 300MG VENOFER 300MG VENOFER 300MG CCN reported HR 139, irreg L.Lorson DEBILITY, HYPOXIA WITH MILD CHF EXACERBATION DEBILITY, HYPOXIA WITH MILD CHF EXACERBATION DEBILITY, HYPOXIA WITH MILD CHF EXACERBATION DEBILITY, HYPOXIA WITH MILD CHF EXACERBATION DEBILITY, HYPOXIA WITH MILD CHF EXACERBATION DEBILITY, HYPOXIA WITH MILD CHF EXACERBATION DEBILITY, HYPOXIA WITH MILD CHF EXACERBATION DEBILITY, HYPOXIA WITH MILD CHF EXACERBATION DEBILITY, HYPOXIA WITH MILD CHF EXACERBATION DEBILITY, HYPOXIA WITH MILD CHF EXACERBATION Reason for Visit Fatigue Iron deficiency anemia Anemia Bradycardia CHF (congestive heart failure) Hypoxemia Weakness Chief Complaint Admit Date wound February 28, 2024 11:30am DEBILITY March 04, 2024 11:35pm DEBILITY March 05, 2024 8:19am DEBILITY March 06, 2024 7:32am DEBILITY March 07, 2024 6:35am DEBILITY March 07, 2024 2:27pm DEBILITY March 08, 2024 11:09am general illness March 09, 2024 2:37am Home Health FU March 22, 2024 1: 50pm 1 Y FU/JHR PER PT RQ March 29, 2024 1:46pm FROM ORDER YESTERDAY 03/30March 30, 2024 9:14am wound April 10, 2024 3 :00pm WOUND April 10, 2024 3 :04pm wound April 24, 2024 4:48pm wound May 01, 2024 3:17pm wound May 08, 2024 11:30am wound May 31, 2024 3:2 5pm wound June 05, 2024 11: 00am Reason for Visit Admit Date Diabetic polyneuropathy February 27, 11:30am 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 exposed February 28, 2024 11:30am COVID-19 virus infection March 07, 2024 2:27pm Generalized weakness March 07, 2024 2:27pm Weakness March 07, 2024 2:27pm Chronic kidney disease, stage 3b March 22, 2024 1:50pm Chronic venous stasis March 22, 2024 1:50pm Debility March 22, 2024 1: 50pm Glaucoma March 22, 2024 1: 50pm History of stroke March 22, 2024 1: 50pm Right renal artery stenosis March 22, 2024 1:50pm Stroke with left hemiparesis March 1:50pm Essential hypertension March 22, 2024 1:50pm Hyperlipidemia March 22, 2024 1: 50pm 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 exposed March 22, 2024 1:50pm PAF (paroxysmal atrial fibrillation) [facility] 2024 1:50pm Peripheral vascular occlusive disease [facility] 2024 1:50pm Essential hypertension March 29 1:46pm Hyperlipidemia March 29, 2024 1 :46pm PAF (paroxysmal atrial fibrillation) [facility] 2024 1:46pm Diabetic polyneuropathy April 10 3:00pm 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 exposed April 10, 2024 3:00pm Atrial fibrillation May 08, 2024 11:30am BPH (benign prostatic hyperplasia) Febru roberto 2024 11:30am Chronic kidney disease, stage 3b Februar y 2024 11:30am Chronic venous stasis May 08 11:30am Debility May 08, 2024 11:30am Diabetes mellitus May 08, 2024 11:30am Diabetic polyneuropathy May 08, 025 11:30am Glaucoma May 08, 2024 11:30am Heart failure with preserved ejection fr action May 08, 2024 11:30am History of stroke May 08, 2024 11:30am Hyperlipidemia May 08, 2024 11:30am Iron deficiency May 08, 2024 11:30am Left hemiplegia May 08, 2024 11:30am Right renal artery stenosis April 11:30am Stroke with left hemiparesis May [id number] 11:30am Type 2 diabetes mellitus with hyperglyce balta May 08, 2024 11:30am Unable to ambulate May 08, 2024 11:30am Chronic anemia May 08, 2024 11:30am Essential hypertension May 08 11:30am Hypertension May 08, 2024 11:30am Iron deficiency anemia May 08 11:30am 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 May 08, 2024 11:30am 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 exposed May 08, 2024 11:30am PAF (paroxysmal atrial fibrillation) Feb ruary 2024 11:30am Peripheral vascular occlusive disease Fe bruary 2024 11:30am Polyneuropathy May 08, 2024 11:30am Diabetic polyneuropathy June 05, 2024 11:00am 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 June 05, 2024 11:00am 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 exposed June 05, 2024 11:00am Chief Complaint Admit Date general illness March 09, 2024 2:37am Home Health FU March 22, 2024 1: 50pm 1 Y FU/JHR PER PT RQ March 29, 2024 1:46pm FROM ORDER YESTERDAY 03/30March 30, 2024 9:14am wound April 10, 2024 3 :00pm WOUND April 10, 2024 3 :04pm wound April 24, 2024 4:48pm wound May 01, 2024 3:17pm wound May 08, 2024 11:30am wound May 31, 2024 3:2 5pm wound June 05, 2024 11: 00am wound June 12, 2024 11:3 5am 3 M FU June 21, 2024 1:5 7pm 4 M FU July 03, 2024 2:1 3pm EORDER- [facility] July 03, 2024 3:28pm Reason for Visit Admit Date Chronic kidney disease, stage 3b March 22, 2024 1:50pm Chronic venous stasis March 22, 2024 1:50pm Debility March 22, 2024 1: 50pm Glaucoma March 22, 2024 1: 50pm History of stroke March 22, 2024 1: 50pm Right renal artery stenosis March 22, 2024 1:50pm Stroke with left hemiparesis March 1:50pm Essential hypertension March 22, 2024 1:50pm Hyperlipidemia March 22, 2024 1: 50pm 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 exposed March 22, 2024 1:50pm PAF (paroxysmal atrial fibrillation) [facility] 2024 1:50pm Peripheral vascular occlusive disease [facility] 2024 1:50pm Essential hypertension March 29 1:46pm Hyperlipidemia March 29, 2024 1 :46pm PAF (paroxysmal atrial fibrillation) [facility] 2024 1:46pm Diabetic polyneuropathy April 10 3:00pm 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 exposed April 10, 2024 3:00pm Atrial fibrillation May 08, 2024 11:30am BPH (benign prostatic hyperplasia) Febru [email or web address] 11:30am Chronic kidney disease, stage 3b 2024 11:30am Chronic venous stasis May 08 11:30am Debility May 08, 2024 11:30am Diabetes mellitus May 08, 2024 11:30am Diabetic polyneuropathy May 08, 2 025 11:30am Glaucoma May 08, 2024 11:30am Heart failure with preserved ejection fr action May 08, 2024 11:30am History of stroke May 08, 2024 11:30am Hyperlipidemia May 08, 2024 11:30am Iron deficiency May 08, 2024 11:30am Left hemiplegia May 08, 2024 11:30am Right renal artery stenosis April 11:30am Stroke with left hemiparesis May [id number] 11:30am Type 2 diabetes mellitus with hyperglyce balta May 08, 2024 11:30am Unable to ambulate May 08, 2024 11:30am Chronic anemia May 08, 2024 11:30am Essential hypertension May 08 11:30am Hypertension May 08, 2024 11:30am Iron deficiency anemia May 08 11:30am 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 May 08, 2024 11:30am 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 exposed May 08, 2024 11:30am PAF (paroxysmal atrial fibrillation) Feb ruary 2024 11:30am Peripheral vascular occlusive disease Fe bruary 2024 11:30am Polyneuropathy May 08, 2024 11:30am Diabetic polyneuropathy June 05, 2024 11:00am 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 June 05, 2024 11:00am 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 exposed June 05, 2024 11:00am 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 June 12, 2024 11:35am Chronic kidney disease, stage 3b June 122024 1:57pm Debility June 21, 2024 1:5 7pm Diabetic polyneuropathy June 21, 2024 1:57pm History of diabetes mellitus June 21, 2024 1:57pm Stroke with left hemiparesis June 21, 2024 1:57pm Type 2 diabetes mellitus with hyperglyce balta June 21, 2024 1:57pm Essential hypertension June 21, 2024 1:57pm Hyperlipidemia June 21, 2024 1:5 7pm 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 June 21, 2024 1:57pm Polyneuropathy June 21, 2024 1:5 7pm Fatigue July 03, 2024 2:1 3pm Iron deficiency anemia July 03, 2024 2:13pm Polyneuropathy July 03, 2024 2:1 3pm History of CVA (cerebrovascular accident ) July 03, 2024 2:13pm Chief Complaint Admit Date wound April 10, 2024 3 :00pm WOUND April 10, 2024 3 :04pm wound April 24, 2024 4:48pm wound May 01, 2024 3:17pm wound May 08, 2024 11:30am wound May 31, 2024 3:2 5pm wound June 05, 2024 11: 00am wound June 12, 2024 11:3 5am 3 M FU June 21, 2024 1:5 7pm 4 M FU July 03, 2024 2:1 3pm EORDER- [facility] July 03, 2024 3:28pm EORDER July 30, 2024 2:12p m Reason for Visit Admit Date Diabetic polyneuropathy April 10 3:00pm 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 exposed April 10, 2024 3:00pm Atrial fibrillation May 08, 2024 11:30am BPH (benign prostatic hyperplasia) Febru [email or web address] 11:30am Chronic kidney disease, stage 3b 2024 11:30am Chronic venous stasis May 08 11:30am Debility May 08, 2024 11:30am Diabetes mellitus May 08, 2024 11:30am Diabetic polyneuropathy May 08, 025 11:30am Glaucoma May 08, 2024 11:30am Heart failure with preserved ejection fr action May 08, 2024 11:30am History of stroke May 08, 2024 11:30am Hyperlipidemia May 08, 2024 11:30am Iron deficiency May 08, 2024 11:30am Left hemiplegia May 08, 2024 11:30am Right renal artery stenosis April 11:30am Stroke with left hemiparesis May [id number] 11:30am Type 2 diabetes mellitus with hyperglyce balta May 08, 2024 11:30am Unable to ambulate May 08, 2024 11:30am Chronic anemia May 08, 2024 11:30am Essential hypertension May 08 11:30am Hypertension May 08, 2024 11:30am Iron deficiency anemia May 08 11:30am 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 May 08, 2024 11:30am 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 exposed May 08, 2024 11:30am PAF (paroxysmal atrial fibrillation) Feb ruary 2024 11:30am Peripheral vascular occlusive disease Fe bruary 2024 11:30am Polyneuropathy May 08, 2024 11:30am Diabetic polyneuropathy June 05, 2024 11:00am 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 June 05, 2024 11:00am 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 exposed June 05, 2024 11:00am 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 June 12, 2024 11:35am Chronic kidney disease, stage 3b June 122024 1:57pm Debility June 21, 2024 1:5 7pm Diabetic polyneuropathy June 21, 2024 1:57pm History of diabetes mellitus June 21, 2024 1:57pm Stroke with left hemiparesis June 21, 2024 1:57pm Type 2 diabetes mellitus with hyperglyce balta June 21, 2024 1:57pm Essential hypertension June 21, 2024 1:57pm Hyperlipidemia June 21, 2024 1:5 7pm 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 June 21, 2024 1:57pm Polyneuropathy June 21, 2024 1:5 7pm Fatigue July 03, 2024 2:1 3pm Iron deficiency anemia July 03, 2024 2:13pm Polyneuropathy July 03, 2024 2:1 3pm History of CVA (cerebrovascular accident ) July 03, 2024 2:13pm Chief Complaint Admit Date wound May 01, 2024 3:17pm wound May 08, 2024 11:30am wound May 31, 2024 3:2 5pm wound June 05, 2024 11: 00am wound June 12, 2024 11:3 5am 3 M FU June 21, 2024 1:5 7pm 4 M FU July 03, 2024 2:1 3pm EORDER- [facility] July 03, 2024 3:28pm EORDER July 30, 2024 2:12p m REQUEST FROM August 14, 2024 2:01p m FALL August 23, 2024 1:14 pm Reason for Visit Admit Date Atrial fibrillation May 08, 2024 11:30am BPH (benign prostatic hyperplasia) Febru roberto 2024 11:30am Chronic kidney disease, stage 3b Februar y 2024 11:30am Chronic venous stasis May 08 11:30am Debility May 08, 2024 11:30am Diabetes mellitus May 08, 2024 11:30am Diabetic polyneuropathy May 08, 025 11:30am Glaucoma May 08, 2024 11:30am Heart failure with preserved ejection fr action May 08, 2024 11:30am History of stroke May 08, 2024 11:30am Hyperlipidemia May 08, 2024 11:30am Iron deficiency May 08, 2024 11:30am Left hemiplegia May 08, 2024 11:30am Right renal artery stenosis April 11:30am Stroke with left hemiparesis May [id number] 11:30am Type 2 diabetes mellitus with hyperglyce balta May 08, 2024 11:30am Unable to ambulate May 08, 2024 11:30am Chronic anemia May 08, 2024 11:30am Essential hypertension May 08 11:30am Hypertension May 08, 2024 11:30am Iron deficiency anemia May 08 11:30am 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 May 08, 2024 11:30am 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 exposed May 08, 2024 11:30am PAF (paroxysmal atrial fibrillation) Feb ruary 2024 11:30am Peripheral vascular occlusive disease Fe bruary 2024 11:30am Polyneuropathy May 08, 2024 11:30am Diabetic polyneuropathy June 05, 2024 11:00am 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 June 05, 2024 11:00am 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 exposed June 05, 2024 11:00am 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 June 12, 2024 11:35am Chronic kidney disease, stage 3b June 122024 1:57pm Debility June 21, 2024 1:5 7pm Diabetic polyneuropathy June 21, 2024 1:57pm History of diabetes mellitus June 21, 2024 1:57pm Stroke with left hemiparesis June 21, 2024 1:57pm Type 2 diabetes mellitus with hyperglyce balta June 21, 2024 1:57pm Essential hypertension June 21, 2024 1:57pm Hyperlipidemia June 21, 2024 1:5 7pm 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 June 21, 2024 1:57pm Polyneuropathy June 21, 2024 1:5 7pm Fatigue July 03, 2024 2:1 3pm Iron deficiency anemia July 03, 2024 2:13pm Polyneuropathy July 03, 2024 2:1 3pm History of CVA (cerebrovascular accident ) July 03, 2024 2:13pm Essential hypertension August 14, 2024 2: 01pm Hyperlipidemia August 14, 2024 2:01p m PAF (paroxysmal atrial fibrillation) Aug 2:01pm Chief Complaint Admit Date wound April 24, 2024 4:48pm wound May 01, 2024 3:17pm wound May 08, 2024 11:30am wound May 31, 2024 3:2 5pm wound June 05, 2024 11: 00am wound June 12, 2024 11:3 5am 3 M FU June 21, 2024 1:5 7pm 4 M FU July 03, 2024 2:1 3pm EORDERMiguel STARK July 03, 2024 3:28pm EORDER July 30, 2024 2:12p m REQUEST FROM August 14, 2024 2:01p m Additional Source Comments (unrecognized sect ion and content) No Status Records FoundNo Status Records FoundNo Status Records Found INFORMATION SOURCE (unrecogn ized section and content) DATE CREATED AUTHOR 03/08/2019 [facility] ([place]) DATE CREATED AUTHOR AUTHOR'S ORGANIZ ATION 04/05/2021 [facility] DATE CREATED AUTHOR AUTHOR'S ORGANIZ ATION [facility] [place] Goals (unrecognized section and content) Goals may be documented in a n alternate sectionGoals may be documented in an alternate sectionGoals may be documented in an alternate sectionGoals may be documented in an alternate sectionGoals may be documented in an alternate sectionGoals may be documented in an alternate sectionGoals may be documented in an alternate sectionGoals may be documented in an alternate sectionGoals may be documented in an alternate sectionGoals may be documented in an alternate sectionGoals may be documented in an alternate sectionGoals may be documented in an alternate sectionGoals may be documented in an alternate sectionGoals may be documented in an alternate sectionGoals may be documented in an alternate sectionGoals may be documented in an alternate sectionGoals may be documented in an alternate sectionGoals may be documented in an alternate sectionGoals may be documented in an alternate sectionGoals may be documented in an alternate sectionGoals may be documented in an alternate sectionGoals may be documented in an alternate section Care Teams (unrecognized sec tion and content) Team Status: Active Member Role Status Dates Dr. Jennifer Watt MD Primary Care Provider Active Team Status: Active Member Role Status Dates Dr. Jennifer Watt MD Primary Care Provider Active Start: April 10, 2024 Dr. Edwin Nieto DPM Attending Provider Active Start: April 10, 2024 Dr. Edwin Nieto DPM Referring Provider Active Start: April 10, 2024 Team Status: Active Member Role Status Dates Dr. Mac Yuen MD Attending Provider Active Start: April 10, 2024 Dr. Edwin Nieto DPM Referring Provider Active Start: April 10, 2024 Team Status: Active Member Role Status Dates Dr. Jennifer Watt MD Primary Care Provider Active Start: April 24, 2024 Dr. Edwin Nieto DPM Referring Provider Active Start: April 24, 2024 Dr. Edwin Nieto DPM Other Provider Active S tart: April 24, 2024 Dr. Mac Yuen MD Attending Provider Active Start: April 24, 2024 Team Status: Active Member Role Status Dates Dr. Jennifer Watt MD Primary Care Provider Active Start: May 01, 2024 Dr. Edwin Nieto DPM Referring Provider Active Start: May 01, 2024 Dr. Edwin Nieto DPM Other Provider Active S tart: May 01, 2024 Dr. Mac Yuen MD Attending Provider Active Start: May 01, 2024 Team Status: Inactive Member Role Status Dates Dr. Jennifer Watt MD Primary Care Provider Active Start: May 08, 2024 End: May 11, 2024 Dr. Edwin Nieto DPM Attending Provider Active Start: May 08, 2024 End: May 11, 2024 Dr. Edwin Nieto DPM Referring Provider Active Start: May 08, 2024 End: May 11, 2024 Team Status: Active Member Role Status Dates Dr. Jennifer Watt MD Primary Care Provider Active Start: May 31, 2024 Dr. Edwin Nieto DPM Referring Provider Active Start: May 31, 2024 Dr. Edwin Nieto DPM Other Provider Active S tart: May 31, 2024 CRISTHIAN Smith Attending Provider Active Star t: May 31, 2024 Team Status: Inactive Member Role Status Dates Dr. Jennifer Watt MD Primary Care Provider Active Start: June 05, 2024 End: June 11, 2024 Dr. Edwin Nieto DPM Attending Provider Active Start: June 05, 2024 End: June 11, 2024 Dr. Edwin Nieto DPM Referring Provider Active Start: June 05, 2024 End: June 11, 2024 Team Status: Inactive Member Role Status Dates Dr. Jennifer Watt MD Primary Care Provider Active Start: June 12, 2024 End: July 11, 2024 Dr. Edwin Nieto DPM Attending Provider Active Start: June 12, 2024 End: July 11, 2024 Dr. Edwin Nieto DPM Referring Provider Active Start: June 12, 2024 End: July 11, 2024 Team Status: Inactive Member Role Status Dates Dr. Jennifer Watt MD Primary Care Provider Active Start: June 21, 2024 End: June 21, 2024 Dr. Jennifer Watt MD Attending Provider Active Start: June 21, 2024 End: June 21, 2024 Team Status: Inactive Member Role Status Dates Dr. Jennifer aWtt MD Primary Care Provider Active Start: July 03, 2024 End: July 03, 2024 Dr. Jennifer Watt MD Referring Provider Active Start: July 03, 2024 End: July 03, 2024 Dr. Costa Figueroa MD Attending Provider Active Start: July 03, 2024 End: July 03, 2024 Team Status: Inactive Member Role Status Dates Dr. Jennifer Watt MD Primary Care Provider Active Start: July 03, 2024 End: July 03, 2024 Dr. Jennifer Watt MD Attending Provider Active Start: July 03, 2024 End: July 03, 2024 Dr. Jennifer Watt MD Referring Provider Active Start: July 03, 2024 End: July 03, 2024 Dr. Costa Figueroa MD Other Provider Active S tart: July 03, 2024 End: July 03, 2024 Team Status: Inactive Member Role Status Dates Dr. Jennifer Watt MD Primary Care Provider Active Start: July 30, 2024 End: July 30, 2024 Dr. Costa Figueroa MD Attending Provider Active Start: July 30, 2024 End: July 30, 2024 Dr. Costa Figueroa MD Referring Provider Active Start: July 30, 2024 End: July 30, 2024 Team Status: Inactive Member Role Status Dates Dr. Jennifer Watt MD Primary Care Provider Active Start: March 09, 2024 End: March 09, 2024 Dr. Miguel Siu MD Attending Provider Active S tart: March 09, 2024 End: March 09, 2024 Dr. Miguel Siu MD Emergency Provider Active S tart: March 09, 2024 End: March 09, 2024 Team Status: Inactive Member Role Status Dates Dr. Jennifer Watt MD Primary Care Provider Active Start: March 22, 2024 End: March 22, 2024 Dr. Jennifer Watt MD Attending Provider Active Start: March 22, 2024 End: March 22, 2024 Team Status: Inactive Member Role Status Dates Dr. Jennifer Watt MD Primary Care Provider Active Start: March 29, 2024 End: March 29, 2024 Dr. Jennifer Watt MD Attending Provider Active Start: March 29, 2024 End: March 29, 2024 Dr. Jennifer Watt MD Referring Provider Active Start: March 29, 2024 End: March 29, 2024 Team Status: Inactive Member Role Status Dates Dr. Jennifer Watt MD Primary Care Provider Active Start: March 29, 2024 End: March 29, 2024 Dr. Jennifer Watt MD Referring Provider Active Start: March 29, 2024 End: March 29, 2024 Adi Arias PADDER CUSHION, PADDER CUSHION-C Attending Provider Active S tart: March 29, 2024 End: March 29, 2024 Team Status: Inactive Member Role Status Dates Dr. Jennifer Watt MD Primary Care Provider Active Start: March 30, 2024 End: March 30, 2024 Dr. Jennifer Watt MD Attending Provider Active Start: March 30, 2024 End: March 30, 2024 Dr. Jennifer Watt MD Referring Provider Active Start: March 30, 2024 End: March 30, 2024 Team Status: Active Member Role Status Dates Dr. Jennifer Watt MD Primary Care Provider Active Start: June 12, 2024 Dr. Edwin Nieto DPM Attending Provider Active Start: June 12, 2024 Dr. Edwin Nieto DPM Referring Provider Active Start: June 12, 2024 Team Status: Active Member Role Status Dates Dr. Butch Giraldo MD Family Provider Active Dr. Jennifer Watt MD Primary Care Provider Active Team Status: Inactive Member Role Status Dates Dr. Jennifer Watt MD Primary Care Pro vider, Attending Provider, Referring Provider Active Team Status: Inactive Member Role Status Dates Dr. Jennifer Watt MD Primary Care Provider Active Dr. Costa Figueroa MD Attending Provider, Referring Provider Active Team Status: Inactive Member Role Status Dates Dr. Jennifer Watt MD Primary Care Provider, Attendi ng Provider Active Team Status: Active Member Role Status Dates Dr. Jennifer Watt MD Primary Care Provider Active Dr. Antonette Alonzo DO Emergency Provider Active Dr. Karrie Montgomery MD Admit Provider, Atte nding Provider, Other Provider Active Dr. Angel Adamson MD Other Provider Active Team Status: Active Member Role Status Dates Dr. Jennifer Watt MD Primary Care Provider Active Dr. Antonette Alonzo DO Emergency Provider Active Dr. Karrie Montgomery MD Admit Provider, Other Provider Act ashok Dr. Angel Adamson MD Attending Provider, Other Prov ider Active Team Status: Active Member Role Status Dates Dr. Jennifer Watt MD Primary Care Provider Active Dr. Antonette Alonzo DO Emergency Provider Active Dr. Karrie Montgomery MD Admit Provider, Other Provider Act ashok Dr. Angel Adamson MD Other Provider Active Dr. Amalia Aguila MD Attending Provider, Other Provid er Active Team Status: Active Member Role Status Dates Dr. Jennifer Watt MD Primary Care Provider Active Dr. Antonette Alonzo DO Emergency Provider Active Dr. Karrie Montgomery MD Admit Provider, Other Provider Act ashok Dr. Angel Adamson MD Other Provider Active Dr. Amalia Augila MD Other Provider Active Dr. [place] MD Attending Provider Active Team Status: Active Member Role Status Dates Dr. Jennifer Watt MD Primary Care Provider Active Dr. Angel Adamson MD Attending Provider Active Team Status: Active Member Role Status Dates Dr. Jennifer Watt MD Primary Care Provider Active Dr. Antonette Alonzo DO Emergency Provider Active Dr. Karrie Montgomery MD Admit Provider, Other Provider Act ashok Dr. Angel Adamson MD Other Provider Active Dr. Anai Sanchez DO Other Provider Active Dr. Amalia Aguila MD Other Provider Active Dr. New Lucero MD Attending Provider Active Team Status: Active Member Role Status Dates Dr. Jennifer Watt MD Primary Care Provider Active Dr. Antonette Alonzo DO Emergency Provider Active Dr. Karrie Montgomery MD Admit Provider, Other Provider Act ashok Dr. Angel Adamson MD Other Provider Active Dr. Anai Sanchez DO Attending Provider, Other Provide r Active Dr. Amalia Aguila MD Other Provider Active Team Status: Active Member Role Status Dates Dr. Jennifer Watt MD Primary Care Provider Active Dr. Miguel Siu MD Emergency Provider Active Dr. Adiel Umanzor MD Admit Provider, A ttending Provider, Other Provider Active Team Status: Active Member Role Status Dates Dr. Jennifer Watt MD Primary Care Provider Active Dr. Miguel Siu MD Emergency Provider Active Dr. Adiel Umanzor MD Admit Provider, A ttending Provider, Other Provider Active Dr. Carmela Ruffin MD Other Provider Active Team Status: Active Member Role Status Dates Dr. Jennifer Watt MD Primary Care Provider Active Dr. Jonathan Davis MD Attending Provider Active Dr. Adiel Umanzor MD Referring Provider Active Team Status: Inactive Member Role Status Dates Dr. Jennifer Watt MD Primary Care Provider, Referri ng Provider Active Cortes Veras PA, PA Attending Provider Active Team Status: Inactive Member Role Status Dates Dr. Jennifer Watt MD Primary Care Provider Active Dr. New Lucero MD Attending Provider Active Team Status: Inactive Member Role Status Dates Dr. Jennifer Watt MD Primary Care Provider Active Dr. Ric Arredondo MD Attending Provider, Referring Provider Active Team Status: Inactive Member Role Status Dates Dr. Jennifer Watt MD Primary Care Provider Active Dr. Antonette Alonzo DO Emergency Provider Active Dr. Karrie Montgomery MD Admit Provider, Other Provider Act ashok Dr. Angel Adamson MD Other Provider Active Dr. Anai Sanchez DO Attending Provider Active Dr. Amalia Aguila MD Other Provider Active Team Status: Inactive Member Role Status Dates Dr. Jennifer Watt MD Primary Care Provider Active Dr. Miguel Siu MD Emergency Provider Active Dr. Adiel Umanzor MD Admit Provider, Attending Provi mónica Active Dr. Carmela Ruffin MD Other Provider Active Team Status: Inactive Member Role Status Dates Dr. Jennifer Watt MD Primary Care Provider Active Dr. Johnathan Huffman MD Admit Provider, Attending Provid er Active Dr. Butch Delgado DPM Other Provider Active Team Status: Active Member Role Status Dates Dr. Jennifer Watt MD Primary Care Provider, Attendi ng Provider Active Dr. Johnathan Huffman MD Referring Provider Active Team Status: Active Member Role Status Dates Dr. Jennifer Watt MD Primary Care Provider Active Dr. Paddy Milner MD Emergency Provider Active Dr. Jessica Meyer MD Admit Provider, Attending Prov ider Active Team Status: Active Member Role Status Dates Dr. Jennifer Watt MD Primary Care Provider Active Dr. Paddy Milner MD Emergency Provider Active Dr. Jessica Meyer MD Admit Provider, Other Provider Active Dr. Adiel Umanzor MD Other Provider Active Dr. New Lucero MD Attending Provider, Other Provide r Active Team Status: Active Member Role Status Dates Dr. Jennifer Watt MD Primary Care Provider Active Dr. Paddy Milner MD Emergency Provider Active Dr. Jessica Meyer MD Admit Provider, Attending Provider, Other Provider Active Dr. Adiel Umanzor MD Other Provider Active Dr. New Lucero MD Other Provider Active Dr. Jonathan Bowling MD Other Provider Active Team Status: Active Member Role Status Dates Dr. Jennifer Watt MD Primary Care Provider Active Dr. Paddy Milner MD Emergency Provider Active Dr. Jessica Meyer MD Admit Provider, Other Provider Active Dr. Adiel Umanzor MD Attending Provider, Other Provi mónica Active Dr. New Luecro MD Other Provider Active Dr. Elham Olivia MD Other Provider Active Team Status: Active Member Role Status Dates Dr. Jennifer Watt MD Primary Care Provider Active Dr. Paddy Milner MD Emergency Provider Active Dr. Jessica Meyer MD Admit Provider, Other Provider Active Dr. Adiel Umanzor MD Other Provider Active Dr. New Lucero MD Attending Provider, Other Provide r Active Dr. Elham Olivia MD Other Provider Active Team Status: Active Member Role Status Dates Dr. Jennifer Watt MD Primary Care Provider Active Dr. Paddy Milner MD Emergency Provider Active Dr. Jessica Meyer MD Admit Provider, Other Provider Active Dr. New Lucero MD Other Provider Active Dr. Elham Olivia MD Other Provider Active Dr. Adiel Umanzor MD Attending Provider, Other Provi mónica Active Team Status: Inactive Member Role Status Dates Dr. Jennifer Watt MD Primary Care Provider Active Dr. Paddy Milner MD Emergency Provider Active Dr. Jessica Meyer MD Admit Provider, Other Provider Active Dr. New Lucero MD Other Provider Active Dr. Elham Olivia MD Other Provider Active Dr. Adiel Umanzor MD Attending Provider Active Team Status: Inactive Member Role Status Dates Dr. Jennifer Watt MD Primary Care Provider Active Dr. Johnathan Huffman MD Admit Provider, Attending Provid er Active Salma Teach , PADDER CUSHION-C Other Provider Active Dr. Franklin Reyes DO Other Provider Active Dr. Elizabeth Morejon MD Other Provider Active Christin Shultz NP-C Other Provider Active Smiley Zepeda NP, PADDER CUSHION-C Other Provider Active Team Status: Active Member Role Status Dates Dr. Jennifer Watt MD Primary Care Provider, Attendi ng Provider Active Team Status: Inactive Member Role Status Dates Dr. Jennifer Watt MD Primary Care Provider Active Costa TONY MD Attending Provider Active Team Status: Inactive Member Role Status Dates Dr. Jennifer Watt MD Primary Care Provider, Referri ng Provider Active Dr. New Lucero MD Attending Provider Active Team Status: Inactive Member Role Status Dates Dr. Jennifer Watt MD Primary Care Provider, Referri ng Provider Active Dr. Luciano Santoro MD Attending Provider Active Team Status: Active Member Role Status Dates Dr. Jennifer Watt MD Primary Care Provider Active Dr. Gumaro Tapia MD Attending Provider, Referring Provider Active Team Status: Active Member Role Status Dates Dr. Jennifer Watt MD Primary Care Provider Active Dr. Elba Ontiveros MD Emergency Provider Active Dr. Tato Avendaño MD Admit Provider, Attending Pro vider Active Team Status: Active Member Role Status Dates Dr. Jennifer Watt MD Primary Care Provider Active Dr. Elba Ontiveros MD Emergency Provider Active Dr. Tato Avendaño MD Admit Provider, Attending Provider, Other Provider Active Team Status: Active Member Role Status Dates Dr. Jennifer Watt MD Primary Care Provider Active Dr. Elba Ontiveros MD Emergency Provider Active Dr. Tato Avendaño MD Admit Provider, Other Provide r Active Dr. Adiel Umanzor MD Attending Provider, Other Provi mónica Active Team Status: Inactive Member Role Status Dates Dr. Jennifer Watt MD Primary Care Provider Active Dr. Gumaro Tapia MD Attending Provider, Referring Provider Active Team Status: Active Member Role Status Dates Dr. Jennifer Watt MD Primary Care Provider Active Dr. Elba Ontiveros MD Emergency Provider Active Dr. Tato Avendaño MD Admit Provider, Other Provide r Active Dr. Adiel Umanzor MD Other Provider Active Dr. Johana Archuleta MD Attending Provider Active Team Status: Active Member Role Status Dates Dr. Jennifer Watt MD Primary Care Provider Active Dr. Elba Ontiveros MD Emergency Provider Active Dr. Tato Avendaño MD Admit Provider, Other Provide r Active Dr. Adiel Umanzor MD Other Provider Active Dr. Johana Archuleta MD Attending Provider, Other Prov ider Active Dr. Jonathan Bowling MD Other Provider Active Team Status: Inactive Member Role Status Dates Dr. Jennifer Watt MD Primary Care Provider Active Dr. Elba Ontiveros MD Emergency Provider Active Dr. Tato Avendaño MD Admit Provider, Other Provide r Active Dr. Adiel Umanzor MD Other Provider Active Dr. Johana Archuleta MD Attending Provider Active Dr. Jonathan Bowling MD Other Provider Active Team Status: Inactive Member Role Status Dates Dr. Jennifer Watt MD Primary Care Provider Active Dr. Johnathan Huffman MD Admit Provider, Attending Provid er Active Team Status: Active Member Role Status Dates Dr. Jennifer Watt MD Primary Care Provider, Referri ng Provider Active Dr. Jonathan Davis MD Attending Provider Active Team Status: Inactive Member Role Status Dates Dr. Jennifer Watt MD Primary Care Provider Active Dr. Grey Gonsalez MD Admit Provid er, Attending Provider, Referring Provider Active Dr. Ke Connelly MD Other Provider Active Team Status: Inactive Member Role Status Dates Dr. Jennifer Watt MD Primary Care Provider, Referri ng Provider Active Adi Arias PADDER CUSHION, PADDER CUSHION-C Attending Provider Active Team Status: Inactive Member Role Status Dates Dr. Jennifer Watt MD Primary Care Provider, Referri ng Provider Active Dr. Costa Figueroa MD Attending Provider Active Team Status: Inactive Member Role Status Dates Dr. Jennifer Watt MD Primary Care Provider, Referri ng Provider Active Vida Martinez PADDER CUSHION, PADDER CUSHION-C Attending Provider Active Team Status: Active Member Role Status Dates Dr. Jennifer Watt MD Primary Care Provider Active Dr. New Lucero MD Attending Provider, Referring Pro vider Active Team Status: Active Member Role Status Dates Dr. Jennifer Watt MD Primary Care Provider Active Dr. Shelia Davenport DO Emergency Provider Active Dr. Shankar Nevarez DO Admit Provider, Attending Provider Active Team Status: Active Member Role Status Dates Dr. Jennifer Watt MD Primary Care Provider Active Dr. Shelia Davenport DO Emergency Provider Active Dr. Shankar Nevarez , DO Admit Provider, Other Pro vider Active Dr. Juliane Lui MD Other Provider Active Dr. Jesús Belcher DO Attending Provider, Other Provid er Active Team Status: Active Member Role Status Dates Dr. Jennifer Watt MD Primary Care Provider Active Dr. Juliane Lui MD Attending Provider Activ e Team Status: Active Member Role Status Dates Dr. Jennifer Watt MD Primary Care Provider Active Dr. Shelia Davenport DO Emergency Provider Active Dr. Shankar Nevarez , DO Admit Provider, Other Pro vider Active Dr. Juliane Lui MD Attending Provider, Othe r Provider Active Dr. Jessica Meyer MD Other Provider Active Dr. Jesús Belcher DO Other Provider Active Team Status: Active Member Role Status Dates Dr. Jennifer Watt MD Primary Care Provider Active Dr. Shelia Davenport , DO Emergency Provider Active Dr. Shankar Nevarez , DO Admit Provider, Other Pro vider Active Dr. Juliane Lui MD Other Provider Active Dr. Jessica Meyer MD Attending Provider, Other Prov ider Active Dr. Jesús Belcher DO Other Provider Active Team Status: Inactive Member Role Status Dates Dr. Jennifer Watt MD Primary Care Provider Active Dr. New Lucero MD Attending Provider, Referring Pro vider Active Team Status: Active Member Role Status Dates Dr. Jennifer Watt MD Primary Care Provider Active Dr. Shelia Davenport DO Emergency Provider Active Dr. Shankar Nevarez , DO Admit Provider, Other Pro vider Active Dr. Juliane Lui MD Other Provider Active Dr. Jessica Meyer MD Attending Provider Active Dr. Jesús Belcher DO Other Provider Active Team Status: Inactive Member Role Status Dates Dr. Jennifer Watt MD Primary Care Provider Active Dr. Shelia Davenport DO Emergency Provider Active Dr. Shankar Nevarez , DO Admit Provider, Other Pro vider Active Dr. Juliane Lui MD Other Provider Active Dr. Jessica Meyer MD Attending Provider Active Dr. Jesús Belcher DO Other Provider Active Team Status: Active Member Role Status Dates Dr. Jennifer Watt MD Primary Care Provider Active Start: February 13, 2024 Dr. Jennifer Watt MD Attending Provider Active Start: February 13, 2024 Team Status: Inactive Member Role Status Dates Dr. Jennifer Watt MD Primary Care Provider Active Start: February 28, 2024 End: March 13, 2024 Dr. Edwin Nieto DPM Attending Provider Active Start: February 28, 2024 End: March 13, 2024 Dr. Edwin Nieto DPM Referring Provider Active Start: February 28, 2024 End: March 13, 2024 Team Status: Active Member Role Status Dates Dr. Jennifer Watt MD Primary Care Provider Active Start: March 04, 2024 Dr. Yaakov Cuevas DO Emergency Provider Activ e Start: March 04, 2024 Dr. Shon Kaufman MD Admit Provider Active Start: March 04, 2024 Dr. Shon Kaufman MD Attending Provider Active Start: March 04, 2024 Dr. Shon Kaufman MD Other Provider Active Start: March 04, 2024 Team Status: Active Member Role Status Dates Dr. Jennifer Watt MD Primary Care Provider Active Start: March 05, 2024 Dr. Yaakov Cuevas DO Emergency Provider Activ e Start: March 05, 2024 Dr. Shon Kaufman MD Admit Provider Active Start: March 05, 2024 Dr. Shon Kaufman MD Other Provider Active Start: March 05, 2024 Dr. Anai Sanchez DO Attending Provider Active S tart: March 05, 2024 Dr. Anai Sanchez , Other Provider Active Start : March 05, 2024 Team Status: Active Member Role Status Dates Dr. Jennifer Watt MD Primary Care Provider Active Start: March 06, 2024 Dr. Yaakov Cuevas DO Emergency Provider Activ e Start: March 06, 2024 Dr. Shon Kaufman MD Admit Provider Active Start: March 06, 2024 Dr. Shon Kaufman MD Other Provider Active Start: March 06, 2024 Dr. Johana Archuleta MD Attending Provider Active Start: March 06, 2024 Dr. Johana Archuleta MD Other Provider Active St art: March 06, 2024 Dr. Anai Sanchez DO Other Provider Active Start : March 06, 2024 Team Status: Active Member Role Status Dates Dr. Jennifer Watt MD Primary Care Provider Active Start: March 07, 2024 Dr. Yaakov Cuevas DO Emergency Provider Activ e Start: March 07, 2024 Dr. Shon Kaufman MD Admit Provider Active Start: March 07, 2024 Dr. Shon Kaufman MD Other Provider Active Start: March 07, 2024 Dr. Johana Archuleta MD Attending Provider Active Start: March 07, 2024 Dr. Johana Archuleta MD Other Provider Active St art: March 07, 2024 Dr. Anai Sanchez DO Other Provider Active Start : March 07, 2024 Team Status: Inactive Member Role Status Dates Dr. Jennifer Watt MD Primary Care Provider Active Start: March 07, 2024 End: March 08, 2024 Dr. Yaakov Cuevas DO Emergency Provider Activ e Start: March 07, 2024 End: March 08, 2024 Dr. Shon Kaufman MD Admit Provider Active Start: March 07, 2024 End: March 08, 2024 Dr. Shon Kaufman MD Other Provider Active Start: March 07, 2024 End: March 08, 2024 Dr. Johana Archuleta MD Attending Provider Active Start: March 07, 2024 End: March 08, 2024 Dr. Anai Sanchez DO Other Provider Active Start : March 07, 2024 End: March 08, 2024 Team Status: Active Member Role Status Dates Dr. Jennifer Watt MD Primary Care Provider Active Start: March 08, 2024 Dr. Yaakov Cuevas DO Emergency Provider Activ e Start: March 08, 2024 Dr. Shon Kaufman MD Admit Provider Active Start: March 08, 2024 Dr. Shon Kaufman MD Other Provider Active Start: March 08, 2024 Dr. Johana Archuleta MD Attending Provider Active Start: March 08, 2024 Dr. Johana Archuleta MD Other Provider Active St art: March 08, 2024 Dr. Anai Sanchez DO Other Provider Active Start : March 08, 2024 Team Status: Inactive Member Role Status Dates Dr. Jennifer Watt MD Primary Care Provider Active Start: July 03, 2024 End: July 03, 2024 Dr. Costa Figueroa MD Attending Provider Active Start: July 03, 2024 End: July 03, 2024 Dr. Costa Figueroa MD Referring Provider Active Start: July 03, 2024 End: July 03, 2024 Team Status: Inactive Member Role Status Dates Dr. Jennifer Watt MD Primary Care Provider Active Start: August 14, 2024 End: August 14, 2024 Dr. Jennifer Watt MD Referring Provider Active Start: August 14, 2024 End: August 14, 2024 Adi Arias NP, PADDER CUSHION-C Attending Provider Active S tart: August 14, 2024 End: August 14, 2024 Team Status: Inactive Member Role Status Dates Dr. Jennifer Watt MD Primary Care Provider Active Start: August 23, 2024 End: August 23, 2024 Dr. Shelia Davenport DO Referring Provider Active S tart: August 23, 2024 End: August 23, 2024 Dr. Shelia Davenport DO Emergency Provider Active S tart: August 23, 2024 End: August 23, 2024 FOR RECORDS PERTAINING TO PATIENTS WHO ARE [...] BE BASED ON THE PRIMARY CLINICAL RECORDS. [facility] [employer] [employer] provides no warranty or guarantee of the accuracy or completeness of information in this document.
== END | disposition home or self-care (01) ==
LOC: PSN 11:52
PROVIDERS: PCP Internal Medicine; Referring Provider Nurse Practitioner Family; Visit Provider Nurse Practitioner Family
DX: I48.0 Paroxysmal atrial fibrillation (principal)
CPT/HCPCS: 93225; 93226

== ENCOUNTER → 2024-12-27 | Outpatient (CLI) | payer MEDICARE, SELFPAY | END | disposition home or self-care (01) | LOC: SL 13:48 | PROVIDERS: PCP Internal Medicine; Referring Provider Nurse Practitioner Acute Care; Visit Provider Nurse Practitioner Acute Care | DX: G47.33 Obstructive sleep apnea (adult) (pediatric) (principal) | CPT/HCPCS: 98960; G0463 ==

== ENCOUNTER → 2025-01-08 | Outpatient (CLI) | payer MEDICARE, SELFPAY ==
[2025-01-08 15:44] LABS: Hematocrit 37.6 % (40-54); Hemoglobin 12.5 g/dL (13.0-16.5); Immature Granulocytes Count 0.030 X10^3/uL (0.0-0.0); Mean Corp Hgb Conc 33.2 g/dL (32-36); Mean Corpuscular Volume 92.8 fL (80-94); Mean Platelet Vol. 10.9 fl (6.2-12.0); NRBC Flagged by Analyzer 0 % (0-5); Platelet Count 218 K/mm3 (150-450); RBC Distribution Width CV 15.1 % (11.6-14.6); RBC Distribution Width SD 51.2 fl (35.1-43.9); Red Blood Count 4.05 M/mm3 (4.6-6.2); White Blood Count 8.3 K/mm3 (4.4-11.0)
[2025-01-08 16:36] LABS: Cholesterol 166 mg/dL (<=200); Low Density Lipoprotein Calc. 103 mg/dL; Triglycerides 137 mg/dL; Very Low Density Lipoprotein 27 mg/dL (5-40); cholesterol:hdl ratio screen 4.31
[2025-01-08 16:44] LABS: AST(SGOT) 16 U/L (<=37); Alanine Aminotransfer ALT/SGPT 8 U/L (<=46); Albumin, Serum 4.1 g/dL (3.4-4.8); Alkaline Phosphatase 78 U/L (40-129); Anion Gap 12 (5-15); BUN 22 mg/dL (4-19); BUN/Creat Ratio 13.9 RATIO (10-20); Calcium,Total 9.6 mg/dL (7.6-11.0); Carbon Dioxide 33.2 mmol/L (21.0-32.0); Chloride 98 mmol/L (98-108); Free T3 1.8 pg/mL (2.18-3.98); Globulin 2.9 g/dL (2.2-4.2); Glucose 127 mg/dL (70-99); Magnesium 2.1 mg/dL (1.5-2.2); Potassium 3.3 mmol/L (3.3-5.1); Vitamin B12 879 pg/mL (180-914); Vitamin D,25 Hydroxy 42.1 ng/mL (30-100)
== END | disposition home or self-care (01) ==
LOC: LAB 14:38
PROVIDERS: PCP Internal Medicine; Referring Provider Internal Medicine; Visit Provider Internal Medicine
DX: E11.42 Type 2 diabetes mellitus with diabetic polyneuropathy (principal); I13.0 Hypertensive heart and chronic kidney disease with heart failure and stage 1 through stage 4 chronic kidney disease, or unspecified chronic kidney disease; I50.9 Heart failure, unspecified; E11.22 Type 2 diabetes mellitus with diabetic chronic kidney disease; E11.65 Type 2 diabetes mellitus with hyperglycemia; N18.32 Chronic kidney disease, stage 3b; N13.9 Obstructive and reflux uropathy, unspecified; Z86.73 Personal history of transient ischemic attack (TIA), and cerebral infarction without residual deficits; I70.1 Atherosclerosis of renal artery; E78.5 Hyperlipidemia, unspecified; Z79.899 Other long term (current) drug therapy; Z13.220 Encounter for screening for lipoid disorders; E53.8 Deficiency of other specified B group vitamins
CPT/HCPCS: 36415; 80053; 80061; 82306; 82607; 83036; 83735; 84439; 84443; 84481; 85025

== ENCOUNTER → 2025-01-21 | Outpatient (CLI) | payer MEDICARE, SELFPAY ==
--- NOTE | 2025-01-21 08:50 | RAD_ITS ---
PROCEDURE: CHEST PA AND LATERAL 01/21/2025 REASON FOR EXAM: COUGH TECHNIQUE: Procedure Code: RADCXR Modality: DX Procedure: CHEST PA AND LATERAL COMPARISON: March 09, 2024. FINDINGS: Hardware: None Heart: The heart size is normal. Mediastinum: The mediastinal contour is unremarkable. Lungs: Stable elevation of the right hemidiaphragm. Stable mild scarring at the lung bases. Bones: Degenerative changes are identified within the thoracic spine. RAD/Chest PA and Lateral IMPRESSION: Stable elevation of the right hemidiaphragm. Stable mild bibasilar scarring. No acute abnormality is seen. Reading Location: [facility]
== END | disposition home or self-care (01) ==
LOC: MTRAD 08:50
PROVIDERS: PCP Internal Medicine; Referring Provider Physician Assistant; Visit Provider Physician Assistant
DX: R05.9 Cough, unspecified (principal)
CPT/HCPCS: 71046